=== PATIENT | male | born 1975 | race African-American/Black ===

== ENCOUNTER → 2018-06-23 | Outpatient (CLI) | payer MEDICARE ==
--- NOTE | 2018-06-23 10:26 | Diagnostic Imaging Report ---
TECHNIQUE: Ultrasound evaluation of the abdomen. Color doppler was utilized to supplement the evaluation. HISTORY: Gastroparesis, nausea COMPARISON: None available. DISCUSSION: LIVER: No focal lesion is identified. The liver measures 17 cm in the right midclavicular line. BILIARY: Normal appearance, without evidence for gallstones, gallbladder wall thickening or pericholecystic fluid. The sonographic Champagne's sign is reported as negative. The common bile duct measures 0.3 cm. PANCREAS: Incompletely visualized due to overlying bowel gas, especially the tail, but no abnormality identified involving the visualized portions of the pancreas. SPLEEN: No splenomegaly. PERITONEUM: No free fluid. KIDNEYS: Right: Measures 12 cm in length. No hydronephrosis or solid mass lesion identified. Left: Measures 11 cm in length. No hydronephrosis or solid mass lesion identified. VASCULATURE: Aorta: Visualized portions appear unremarkable. Interior vena cava: Visualized portions appear unremarkable. Portal Vein: Nondilated with hepatopedal flow. IMPRESSION: 1. Hepatomegaly. 2. Otherwise, unremarkable. Signed by: Dr. Tariq Solis D.O., M.M.M. on 06/23/2018 10:23 AM
== END ==
LOC: US 07:38 → EDSEX 08:00
PROVIDERS: ATTEND Internal Medicine Gastroenterology
DX: K31.84 Gastroparesis (principal); R11.0 Nausea
CPT/HCPCS: 76700

== ENCOUNTER 2018-07-02 00:42 | Inpatient (IN) | payer MEDICARE ==
[~2018-07-02] VITALS: Ht 185.4 cm; Wt 90.7 kg
--- OUTSIDE RECORDS SUMMARY | 2018-07-02 00:46 | XMS REPORT ---
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 Allergies, Adverse Reactions, Alerts Allergy Name Allergy Type Status Severity Reaction(s) Onset Date Inactive Date Treating Clinician Comments No Known Allergies DA Active U 2018-05-11 00:00:00 No Known Allergies DA Active U 2018-02-26 00:00:00 No Known Allergies DA Active U 2018-01-14 00:00:00 No Known Allergies DA Active U 2017-12-15 00:00:00 No Known Allergies DA Active U 2017-10-09 00:00:00 Medications This patient has no known medications. Results Test Description Test Time Test Comments Text Results Atomic Results Result Comments US ABDOMEN COMPLETE 2018-06-23 10:20:00 [facility] [address] [place] [address] Patient Name: BREE ASHTON MR #: [id number] : 1975 Age/Sex: 42/M Req #: [id number] Adm Physician: Ordered by: TAVIA GARCIA MD Report #: [id number] Location: Room/Bed: Procedure: [id number] US/US ABDOMEN COMPLETE Exam Date: Exam Time: REPORT STATUS: Signed TECHNIQUE: Ultrasound evaluation of the abdomen. Color doppler was utilized to supplement the evaluation. HISTORY: Gastroparesis, nausea COMPARISON: None available. DISCUSSION: LIVER: No focal lesion is identified. The liver measures 17 cm in the right midclavicular line. BILIARY: Normal appearance, without evidence for gallstones, gallbladder wall thickening or pericholecystic fluid. The sonographic Champagne's sign is reported as negative. The common bile duct measures 0.3 cm. PANCREAS: Incompletely visualized due to overlying bowel gas, especially the tail, but no abnormality identified involving the visualized portions of the pancreas. SPLEEN: No splenomegaly. PERITONEUM: No free fluid. KIDNEYS: Right: Measures 12 cm in length. No hydronephrosis or solid mass lesion identified. Left: Measures 11 cm in length. No hydronephrosis or solid mass lesion identified. VASCULATURE: Aorta: Visualized portions appear unremarkable. Interior vena cava: Visualized portions appear unremarkable. Portal Vein: Nondilated with hepatopedal flow. IMPRESSION: 1. Hepatomegaly. 2. Otherwise, unremarkable. Signed by: Dr. Tariq Solis D.O., M.M.M. on 06/23/2018 10:23 AM Dictated By: TARIQ SOLIS DO 1023 Transcribed By: PAULA on 06/23/18 1023 COPY TO: TAVIA GARCIA MD GLUBED 2018-06-05 05:55:00 GLUBED (test code=GLUBED) 195 mg/dL 74-106 Performed by certified cryolite recovery operator at [facility] ([facility]3] [id number] 17:33:00* Test Item Value Reference Range Comments GLUBED (test code=GLUBED) 151 mg/dL 74-106 Performed by certified cryolite recovery operator at [facility] ([facility])[3] BASIC METABOLIC [id number] 15:46:00* Test Item Value Reference Range Comments SODIUM (test code=NA) 136 mmol/L 136-145 POTASSIUM (test code=K) 3.0 mmol/L 3.5-5.1 CHLORIDE (test code=CL) 98.0 mmol/L 98-107 CARBON DIOXIDE (test code=CO2) 30.0 mmol/L 21-32 ANION GAP (test code=GAP) 11.0 10-20 GLUCOSE (test code=GLU) 179 mg/dL 74-106 BLOOD UREA NITROGEN (test code=BUN) 10 mg/dL 7-18 GLOMERULAR FILTRATION RATE (test code=GFR) > 60 mL/min >=60 Estimated GFR by using Modified MDRD formula.Chronic kidney disease is defined as either kidney damageor GFR <60 mL/min/1.73 m2 for >3 months. CREATININE (test code=CREAT) 0.80 mg/dL 0.7-1.3 BUN/CREATININE RATIO (test code=BUN/CREA) 13.2 10-20 CALCIUM (test code=CA) 7.7 mg/dL 8.5-10.1 [id number] 12:16:00* Test Item Value Reference Range Comments GLUBED (test code=GLUBED) 136 mg/dL 74-106 Performed by certified cryolite recovery operator at [facility] ([facility])[3] [id number] 07:53:00* Test Item Value Reference Range Comments GLUBED (test code=GLUBED) 129 mg/dL 74-106 Performed by certified cryolite recovery operator at [facility] ([facility])[3] COMPREHENSIVE METABOLIC [id number] 06:41:00* Test Item Value Reference Range Comments SODIUM (test code=NA) 139 mmol/L 136-145 POTASSIUM (test code=K) 2.7 mmol/L 3.5-5.1 Results called to [id number] by [email or web address] 05/16/18 0636Critical results verified and read back by Nurse? Y CHLORIDE (test code=CL) 100.0 mmol/L 98-107 CARBON DIOXIDE (test code=CO2) 28.0 mmol/L 21-32 ANION GAP (test code=GAP) 13.7 10-20 GLUCOSE (test code=GLU) 120 mg/dL 74-106 BLOOD UREA NITROGEN (test code=BUN) 9 mg/dL 7-18 GLOMERULAR FILTRATION RATE (test code=GFR) > 60 mL/min >=60 Estimated GFR by using Modified MDRD formula.Chronic kidney disease is defined as either kidney damageor GFR <60 mL/min/1.73 m2 for >3 months. CREATININE (test code=CREAT) 0.70 mg/dL 0.7-1.3 BUN/CREATININE RATIO (test code=BUN/CREA) 12.5 10-20 TOTAL PROTEIN (test code=PROT) 6.1 gram/dL 6.4-8.2 ALBUMIN (test code=ALB) 2.9 g/dL 3.4-5.0 GLOBULIN (test code=GLOB) 3.2 gram/dL 2.7-4.2 ALBUMIN/GLOBULIN RATIO (test code=A/G) 0.9 0.75-1.50 CALCIUM (test code=CA) 8.0 mg/dL 8.5-10.1 BILIRUBIN TOTAL (test code=BILT) 0.80 mg/dL 0.0-1.0 SGOT/AST (test code=AST) 10 IUnit/L 15-37 SGPT/ALT (test code=ALT) 11 IUnit/L 12-78 ALKALINE PHOSPHATASE TOTAL (test code=ALKP) 68 IUnit/L 45-117 Note change in reference range due to change in reagent. CBC W/AUTO [id number] 05:31:00* Test Item Value Reference Range Comments WHITE BLOOD CELL (test code=WBC) 7.7 K/mm3 4.5-12.5 RED BLOOD CELL (test code=RBC) 4.04 mill/mm3 4.0-5.8 HEMOGLOBIN (test code=HGB) 11.4 gram/dL 13.0-17.5 HEMATOCRIT (test code=HCT) 36.2 % 42.0-52.0 MEAN CELL VOLUME (test code=MCV) 89.6 fL 80-98 MEAN CELL HGB (test code=MCH) 28.2 picogram 27.0-33.0 MEAN CELL HGB CONCETRATION (test code=MCHC) 31.5 gram/dL 33.0-36.0 RED CELL DISTRIBUTION WIDTH (test code=RDW) 12.8 % 11.6-16.2 RED CELL DISTRIBUTION WIDTH SD (test code=RDW-SD) 42.1 fL 37.0-51.0 PLATELET COUNT (test code=PLT) 187 K/mm3 150-450 MEAN PLATELET VOLUME (test code=MPV) 10.7 fL 6.7-11.0 NEUTROPHIL % (test code=NT%) 64.1 % 39.0-69.0 IMMATURE GRANULOCYTE % (test code=IG%) 0.3 % 0.0-5.0 LYMPHOCYTE % (test code=LY%) 16.8 % 25.0-55.0 MONOCYTE % (test code=MO%) 17.2 % 0.0-10.0 EOSINOPHIL % (test code=EO%) 1.2 % 0.0-5.0 BASOPHIL % (test code=BA%) 0.4 % 0.0-1.0 NUCLEATED RBC % (test code=NRBC%) 0.0 % 0-0 NEUTROPHIL # (test code=NT#) 4.95 K/mm3 1.8-7.7 IMMATURE GRANULOCYTE # (test code=IG#) 0.02 x10 3/uL 0-0.03 LYMPHOCYTE # (test code=LY#) 1.30 K/mm3 1.0-5.0 MONOCYTE # (test code=MO#) 1.33 K/mm3 0-0.8 EOSINOPHIL # (test code=EO#) 0.09 K/mm3 0.0-0.5 BASOPHIL # (test code=BA#) 0.03 K/mm3 0.0-0.2 NUCLEATED RBC # (test code=NRBC#) 0.00 K/mm3 0.0-0.1 [id number] 20:43:00* Test Item Value Reference Range Comments GLUBED (test code=GLUBED) 122 mg/dL 74-106 Performed by certified cryolite recovery operator at [facility]3] [id number] 17:15:00* Test Item Value Reference Range Comments GLUBED (test code=GLUBED) 145 mg/dL 74-106 Performed by certified cryolite recovery operator at [facility]3] [id number] 11:46:00* Test Item Value Reference Range Comments GLUBED (test code=GLUBED) 228 mg/dL 74-106 Performed by certified cryolite recovery operator at [facility]3] [id number] 07:49:00* Test Item Value Reference Range Comments GLUBED (test code=GLUBED) 123 mg/dL 74-106 Performed by certified cryolite recovery operator at [facility])[3] COMPREHENSIVE METABOLIC [id number] 07:19:00* Test Item Value Reference Range Comments SODIUM (test code=NA) 140 mmol/L 136-145 POTASSIUM (test code=K) 2.9 mmol/L 3.5-5.1 Results called to [id number] by [email or web address] 05/15/18 0716Critical results verified and read back by Nurse? Y CHLORIDE (test code=CL) 102.0 mmol/L 98-107 CARBON DIOXIDE (test code=CO2) 28.0 mmol/L 21-32 ANION GAP (test code=GAP) 12.9 10-20 GLUCOSE (test code=GLU) 109 mg/dL 74-106 BLOOD UREA NITROGEN (test code=BUN) 11 mg/dL 7-18 GLOMERULAR FILTRATION RATE (test code=GFR) > 60 mL/min >=60 Estimated GFR by using Modified MDRD formula.Chronic kidney disease is defined as either kidney damageor GFR <60 mL/min/1.73 m2 for >3 months. CREATININE (test code=CREAT) 0.70 mg/dL 0.7-1.3 BUN/CREATININE RATIO (test code=BUN/CREA) 15.5 10-20 TOTAL PROTEIN (test code=PROT) 6.3 gram/dL 6.4-8.2 ALBUMIN (test code=ALB) 3.1 g/dL 3.4-5.0 GLOBULIN (test code=GLOB) 3.2 gram/dL 2.7-4.2 ALBUMIN/GLOBULIN RATIO (test code=A/G) 1.0 0.75-1.50 CALCIUM (test code=CA) 7.9 mg/dL 8.5-10.1 BILIRUBIN TOTAL (test code=BILT) 0.60 mg/dL 0.0-1.0 SGOT/AST (test code=AST) 12 IUnit/L 15-37 SGPT/ALT (test code=ALT) 12 IUnit/L 12-78 ALKALINE PHOSPHATASE TOTAL (test code=ALKP) 74 IUnit/L 45-117 Note change in reference range due to change in reagent. CBC W/AUTO [id number] 06:20:00* Test Item Value Reference Range Comments WHITE BLOOD CELL (test code=WBC) 10.1 K/mm3 4.5-12.5 RED BLOOD CELL (test code=RBC) 4.18 mill/mm3 4.0-5.8 HEMOGLOBIN (test code=HGB) 11.7 gram/dL 13.0-17.5 HEMATOCRIT (test code=HCT) 37.5 % 42.0-52.0 MEAN CELL VOLUME (test code=MCV) 89.7 fL 80-98 MEAN CELL HGB (test code=MCH) 28.0 picogram 27.0-33.0 MEAN CELL HGB CONCETRATION (test code=MCHC) 31.2 gram/dL 33.0-36.0 RED CELL DISTRIBUTION WIDTH (test code=RDW) 13.1 % 11.6-16.2 RED CELL DISTRIBUTION WIDTH SD (test code=RDW-SD) 43.0 fL 37.0-51.0 PLATELET COUNT (test code=PLT) 192 K/mm3 150-450 MEAN PLATELET VOLUME (test code=MPV) 11.0 fL 6.7-11.0 NEUTROPHIL % (test code=NT%) 69.3 % 39.0-69.0 IMMATURE GRANULOCYTE % (test code=IG%) 0.4 % 0.0-5.0 LYMPHOCYTE % (test code=LY%) 14.4 % 25.0-55.0 MONOCYTE % (test code=MO%) 15.4 % 0.0-10.0 EOSINOPHIL % (test code=EO%) 0.1 % 0.0-5.0 BASOPHIL % (test code=BA%) 0.4 % 0.0-1.0 NUCLEATED RBC % (test code=NRBC%) 0.0 % 0-0 NEUTROPHIL # (test code=NT#) 6.99 K/mm3 1.8-7.7 IMMATURE GRANULOCYTE # (test code=IG#) 0.04 x10 3/uL 0-0.03 LYMPHOCYTE # (test code=LY#) 1.45 K/mm3 1.0-5.0 MONOCYTE # (test code=MO#) 1.55 K/mm3 0-0.8 EOSINOPHIL # (test code=EO#) 0.01 K/mm3 0.0-0.5 BASOPHIL # (test code=BA#) 0.04 K/mm3 0.0-0.2 NUCLEATED RBC # (test code=NRBC#) 0.00 K/mm3 0.0-0.1 [id number] 21:14:00* Test Item Value Reference Range Comments GLUBED (test code=GLUBED) 152 mg/dL 74-106 Performed by certified cryolite recovery operator at [facility])[3] [id number] 17:16:00* Test Item Value Reference Range Comments GLUBED (test code=GLUBED) 140 mg/dL 74-106 Performed by certified cryolite recovery operator at [facility]3] [id number] 11:55:00* Test Item Value Reference Range Comments GLUBED (test code=GLUBED) 236 mg/dL 74-106 Performed by certified cryolite recovery operator at [facility]3] COMPREHENSIVE METABOLIC [id number] 08:50:00* Test Item Value Reference Range Comments SODIUM (test code=NA) 142 mmol/L 136-145 POTASSIUM (test code=K) 3.4 mmol/L 3.5-5.1 CHLORIDE (test code=CL) 107.0 mmol/L 98-107 CARBON DIOXIDE (test code=CO2) 25.0 mmol/L 21-32 ANION GAP (test code=GAP) 13.4 10-20 GLUCOSE (test code=GLU) 195 mg/dL 74-106 BLOOD UREA NITROGEN (test code=BUN) 16 mg/dL 7-18 GLOMERULAR FILTRATION RATE (test code=GFR) > 60 mL/min >=60 Estimated GFR by using Modified MDRD formula.Chronic kidney disease is defined as either kidney damageor GFR <60 mL/min/1.73 m2 for >3 months. CREATININE (test code=CREAT) 0.80 mg/dL 0.7-1.3 BUN/CREATININE RATIO (test code=BUN/CREA) 18.9 10-20 TOTAL PROTEIN (test code=PROT) 6.5 gram/dL 6.4-8.2 ALBUMIN (test code=ALB) 3.2 g/dL 3.4-5.0 GLOBULIN (test code=GLOB) 3.3 gram/dL 2.7-4.2 ALBUMIN/GLOBULIN RATIO (test code=A/G) 1.0 0.75-1.50 CALCIUM (test code=CA) 8.2 mg/dL 8.5-10.1 BILIRUBIN TOTAL (test code=BILT) 0.60 mg/dL 0.0-1.0 SGOT/AST (test code=AST) 10 IUnit/L 15-37 SGPT/ALT (test code=ALT) 14 IUnit/L 12-78 ALKALINE PHOSPHATASE TOTAL (test code=ALKP) 80 IUnit/L 45-117 Note change in reference range due to change in reagent. COMPREHENSIVE METABOLIC [id number] 08:38:00* Test Item Value Reference Range Comments SODIUM (test code=NA) 142 mmol/L 136-145 POTASSIUM (test code=K) 3.4 mmol/L 3.5-5.1 CHLORIDE (test code=CL) 107.0 mmol/L 98-107 CARBON DIOXIDE (test code=CO2) mmol/L 21-32 ANION GAP (test code=GAP) 10-20 GLUCOSE (test code=GLU) mg/dL 74-106 BLOOD UREA NITROGEN (test code=BUN) mg/dL 7-18 GLOMERULAR FILTRATION RATE (test code=GFR) mL/min >=60 CREATININE (test code=CREAT) mg/dL 0.7-1.3 BUN/CREATININE RATIO (test code=BUN/CREA) 10-20 TOTAL PROTEIN (test code=PROT) gram/dL 6.4-8.2 ALBUMIN (test code=ALB) g/dL 3.4-5.0 GLOBULIN (test code=GLOB) gram/dL 2.7-4.2 ALBUMIN/GLOBULIN RATIO (test code=A/G) 0.75-1.50 CALCIUM (test code=CA) mg/dL 8.5-10.1 BILIRUBIN TOTAL (test code=BILT) mg/dL 0.0-1.0 SGOT/AST (test code=AST) IUnit/L 15-37 SGPT/ALT (test code=ALT) IUnit/L 12-78 ALKALINE PHOSPHATASE TOTAL (test code=ALKP) IUnit/L 45-117 CBC W/AUTO [id number] 08:00:00* Test Item Value Reference Range Comments WHITE BLOOD CELL (test code=WBC) 13.1 K/mm3 4.5-12.5 RED BLOOD CELL (test code=RBC) 4.03 mill/mm3 4.0-5.8 HEMOGLOBIN (test code=HGB) 11.4 gram/dL 13.0-17.5 HEMATOCRIT (test code=HCT) 36.0 % 42.0-52.0 MEAN CELL VOLUME (test code=MCV) 89.3 fL 80-98 MEAN CELL HGB (test code=MCH) 28.3 picogram 27.0-33.0 MEAN CELL HGB CONCETRATION (test code=MCHC) 31.7 gram/dL 33.0-36.0 RED CELL DISTRIBUTION WIDTH (test code=RDW) 13.6 % 11.6-16.2 RED CELL DISTRIBUTION WIDTH SD (test code=RDW-SD) 44.4 fL 37.0-51.0 PLATELET COUNT (test code=PLT) 181 K/mm3 150-450 MEAN PLATELET VOLUME (test code=MPV) 10.9 fL 6.7-11.0 NEUTROPHIL % (test code=NT%) 79.9 % 39.0-69.0 IMMATURE GRANULOCYTE % (test code=IG%) 0.5 % 0.0-5.0 LYMPHOCYTE % (test code=LY%) 9.0 % 25.0-55.0 MONOCYTE % (test code=MO%) 10.3 % 0.0-10.0 EOSINOPHIL % (test code=EO%) 0.0 % 0.0-5.0 BASOPHIL % (test code=BA%) 0.3 % 0.0-1.0 NUCLEATED RBC % (test code=NRBC%) 0.0 % 0-0 NEUTROPHIL # (test code=NT#) 10.44 K/mm3 1.8-7.7 IMMATURE GRANULOCYTE # (test code=IG#) 0.07 x10 3/uL 0-0.03 LYMPHOCYTE # (test code=LY#) 1.18 K/mm3 1.0-5.0 MONOCYTE # (test code=MO#) 1.35 K/mm3 0-0.8 EOSINOPHIL # (test code=EO#) 0.00 K/mm3 0.0-0.5 BASOPHIL # (test code=BA#) 0.04 K/mm3 0.0-0.2 NUCLEATED RBC # (test code=NRBC#) 0.00 K/mm3 0.0-0.1 MANUAL DIFF REQUIRED (test code=MDIFF) NO [id number] 07:51:00* Test Item Value Reference Range Comments GLUBED (test code=GLUBED) 210 mg/dL 74-106 Performed by certified cryolite recovery operator at [facility]3] [id number] 20:06:00* Test Item Value Reference Range Comments GLUBED (test code=GLUBED) 278 mg/dL 74-106 Performed by certified cryolite recovery operator at [facility]3] [id number] 16:53:00* Test Item Value Reference Range Comments GLUBED (test code=GLUBED) 236 mg/dL 74-106 Performed by certified cryolite recovery operator at [facility]3] [id number] 11:31:00* Test Item Value Reference Range Comments GLUBED (test code=GLUBED) 269 mg/dL 74-106 Performed by certified cryolite recovery operator at [facility]3] [id number] 10:39:00* Test Item Value Reference Range Comments GLUBED (test code=GLUBED) 298 mg/dL 74-106 Performed by certified cryolite recovery operator at [facility]3] COMPREHENSIVE METABOLIC [id number] 06:29:00* Test Item Value Reference Range Comments SODIUM (test code=NA) 141 mmol/L 136-145 POTASSIUM (test code=K) 3.4 mmol/L 3.5-5.1 CHLORIDE (test code=CL) 105.0 mmol/L 98-107 CARBON DIOXIDE (test code=CO2) 22.0 mmol/L 21-32 ANION GAP (test code=GAP) 17.4 10-20 GLUCOSE (test code=GLU) 285 mg/dL 74-106 BLOOD UREA NITROGEN (test code=BUN) 15 mg/dL 7-18 GLOMERULAR FILTRATION RATE (test code=GFR) > 60 mL/min >=60 Estimated GFR by using Modified MDRD formula.Chronic kidney disease is defined as either kidney damageor GFR <60 mL/min/1.73 m2 for >3 months. CREATININE (test code=CREAT) 0.90 mg/dL 0.7-1.3 BUN/CREATININE RATIO (test code=BUN/CREA) 16.1 10-20 TOTAL PROTEIN (test code=PROT) 7.1 gram/dL 6.4-8.2 ALBUMIN (test code=ALB) 3.7 g/dL 3.4-5.0 GLOBULIN (test code=GLOB) 3.4 gram/dL 2.7-4.2 ALBUMIN/GLOBULIN RATIO (test code=A/G) 1.1 0.75-1.50 CALCIUM (test code=CA) 8.4 mg/dL 8.5-10.1 BILIRUBIN TOTAL (test code=BILT) 0.60 mg/dL 0.0-1.0 SGOT/AST (test code=AST) 16 IUnit/L 15-37 SGPT/ALT (test code=ALT) 16 IUnit/L 12-78 ALKALINE PHOSPHATASE TOTAL (test code=ALKP) 92 IUnit/L 45-117 Note change in reference range due to change in reagent. COMPREHENSIVE METABOLIC [id number] 06:10:00* Test Item Value Reference Range Comments SODIUM (test code=NA) 141 mmol/L 136-145 POTASSIUM (test code=K) 3.4 mmol/L 3.5-5.1 CHLORIDE (test code=CL) 105.0 mmol/L 98-107 CARBON DIOXIDE (test code=CO2) mmol/L 21-32 ANION GAP (test code=GAP) 10-20 GLUCOSE (test code=GLU) mg/dL 74-106 BLOOD UREA NITROGEN (test code=BUN) mg/dL 7-18 GLOMERULAR FILTRATION RATE (test code=GFR) mL/min >=60 CREATININE (test code=CREAT) mg/dL 0.7-1.3 BUN/CREATININE RATIO (test code=BUN/CREA) 10-20 TOTAL PROTEIN (test code=PROT) gram/dL 6.4-8.2 ALBUMIN (test code=ALB) g/dL 3.4-5.0 GLOBULIN (test code=GLOB) gram/dL 2.7-4.2 ALBUMIN/GLOBULIN RATIO (test code=A/G) 0.75-1.50 CALCIUM (test code=CA) mg/dL 8.5-10.1 BILIRUBIN TOTAL (test code=BILT) mg/dL 0.0-1.0 SGOT/AST (test code=AST) IUnit/L 15-37 SGPT/ALT (test code=ALT) IUnit/L 12-78 ALKALINE PHOSPHATASE TOTAL (test code=ALKP) IUnit/L 45-117 CBC W/AUTO [id number] 05:48:00* Test Item Value Reference Range Comments WHITE BLOOD CELL (test code=WBC) 14.8 K/mm3 4.5-12.5 RED BLOOD CELL (test code=RBC) 4.04 mill/mm3 4.0-5.8 HEMOGLOBIN (test code=HGB) 11.4 gram/dL 13.0-17.5 HEMATOCRIT (test code=HCT) 36.5 % 42.0-52.0 MEAN CELL VOLUME (test code=MCV) 90.3 fL 80-98 MEAN CELL HGB (test code=MCH) 28.2 picogram 27.0-33.0 MEAN CELL HGB CONCETRATION (test code=MCHC) 31.2 gram/dL 33.0-36.0 RED CELL DISTRIBUTION WIDTH (test code=RDW) 13.6 % 11.6-16.2 RED CELL DISTRIBUTION WIDTH SD (test code=RDW-SD) 45.2 fL 37.0-51.0 PLATELET COUNT (test code=PLT) 181 K/mm3 150-450 MEAN PLATELET VOLUME (test code=MPV) 11.2 fL 6.7-11.0 NEUTROPHIL % (test code=NT%) 87.1 % 39.0-69.0 IMMATURE GRANULOCYTE % (test code=IG%) 0.6 % 0.0-5.0 LYMPHOCYTE % (test code=LY%) 5.3 % 25.0-55.0 MONOCYTE % (test code=MO%) 6.7 % 0.0-10.0 EOSINOPHIL % (test code=EO%) 0.0 % 0.0-5.0 BASOPHIL % (test code=BA%) 0.3 % 0.0-1.0 NUCLEATED RBC % (test code=NRBC%) 0.0 % 0-0 NEUTROPHIL # (test code=NT#) 12.89 K/mm3 1.8-7.7 IMMATURE GRANULOCYTE # (test code=IG#) 0.09 x10 3/uL 0-0.03 LYMPHOCYTE # (test code=LY#) 0.79 K/mm3 1.0-5.0 MONOCYTE # (test code=MO#) 1.00 K/mm3 0-0.8 EOSINOPHIL # (test code=EO#) 0.00 K/mm3 0.0-0.5 BASOPHIL # (test code=BA#) 0.05 K/mm3 0.0-0.2 NUCLEATED RBC # (test code=NRBC#) 0.00 K/mm3 0.0-0.1 MANUAL DIFF REQUIRED (test code=MDIFF) NO [id number] 20:52:00* Test Item Value Reference Range Comments GLUBED (test code=GLUBED) 238 mg/dL 74-106 Performed by certified cryolite recovery operator at [facility]3] [id number] 15:54:00* Test Item Value Reference Range Comments GLUBED (test code=GLUBED) 199 mg/dL 74-106 Performed by certified cryolite recovery operator at [facility]3] [id number] 11:51:00* Test Item Value Reference Range Comments GLUBED (test code=GLUBED) 265 mg/dL 74-106 Performed by certified cryolite recovery operator at [facility]3] [id number] 08:20:00* Test Item Value Reference Range Comments GLYCOSYLATED HEMOGLOBIN (HA1C) (test code=GLYHGB) 10.6 % HbA1 4.8-6.0 ESTIMATED AVERAGE GLUCOSE (test code=EAG) 258 MG/DL COMPREHENSIVE METABOLIC [id number] 08:11:00* Test Item Value Reference Range Comments SODIUM (test code=NA) 139 mmol/L 136-145 POTASSIUM (test code=K) 4.0 mmol/L 3.5-5.1 CHLORIDE (test code=CL) 102.0 mmol/L 98-107 CARBON DIOXIDE (test code=CO2) 24.0 mmol/L 21-32 ANION GAP (test code=GAP) 17.0 10-20 GLUCOSE (test code=GLU) 354 mg/dL 74-106 BLOOD UREA NITROGEN (test code=BUN) 14 mg/dL 7-18 GLOMERULAR FILTRATION RATE (test code=GFR) > 60 mL/min >=60 Estimated GFR by using Modified MDRD formula.Chronic kidney disease is defined as either kidney damageor GFR <60 mL/min/1.73 m2 for >3 months. CREATININE (test code=CREAT) 1.10 mg/dL 0.7-1.3 BUN/CREATININE RATIO (test code=BUN/CREA) 12.6 10-20 TOTAL PROTEIN (test code=PROT) 7.4 gram/dL 6.4-8.2 ALBUMIN (test code=ALB) 3.8 g/dL 3.4-5.0 GLOBULIN (test code=GLOB) 3.6 gram/dL 2.7-4.2 ALBUMIN/GLOBULIN RATIO (test code=A/G) 1.1 0.75-1.50 CALCIUM (test code=CA) 8.4 mg/dL 8.5-10.1 BILIRUBIN TOTAL (test code=BILT) 0.70 mg/dL 0.0-1.0 SGOT/AST (test code=AST) 20 IUnit/L 15-37 SGPT/ALT (test code=ALT) 18 IUnit/L 12-78 ALKALINE PHOSPHATASE TOTAL (test code=ALKP) 96 IUnit/L 45-117 Note change in reference range due to change in reagent. LIPID PROFILE (CORONARY RISK)2018-05-12 08:11:00* Test Item Value Reference Range Comments TRIGLYCERIDES (test code=TRIG) 73 mg/dL 20-150 CHOLESTEROL (test code=CHOL) 134 mg/dL 0-200 CHOLESTEROL/HDL RATIO (test code=CHOLHDL) 3.0 RATIO 0-4.9 RISK ASSOCIATED WITH CHOL/HDL RATIOS: Risk Male Female1/2 AVERAGE 3.43 3.27AVERAGE 4.97 4.442X AVERAGE 9.55 7.053X AVERAGE 23.39 11.04 REFERENCE VALUE IS RELATED TO RISK LEVELS ASRECOMMENDED BY THE [facility]. HEART, LUNG, AND BLOOD INST. HDL CHOLESTEROL (test code=HDL) 38 mg/dL 40-60 LIPOPROTEIN LDL (test code=LDL) 92 mg/dL 100-129 Reference Interval: mg/dL mmol/L Optimal <100 <2.6Near/above optimal 100-129 2.6- 3.3Borderline High 130-159 3.4-4.1High 160-189 4.1-4.9Very High >=190 >=4.9=========This LDL result is a direct measurement.========= THYROID STIMULATING [id number] 08:11:00* Test Item Value Reference Range Comments THYROID STIMULATING HORMONE (test code=TSH) 1.020 uIU/mL 0.36-3.74 TSH REFERENCE RANGES: EUTHYROID: 0.35 - 4.3 mIU/mL HYPO : > 5.5 mIU/mL HYPER : < 0.35 mIU/mL COMPREHENSIVE METABOLIC [id number] 07:53:00* Test Item Value Reference Range Comments SODIUM (test code=NA) 139 mmol/L 136-145 POTASSIUM (test code=K) 4.0 mmol/L 3.5-5.1 CHLORIDE (test code=CL) 102.0 mmol/L 98-107 CARBON DIOXIDE (test code=CO2) mmol/L 21-32 ANION GAP (test code=GAP) 10-20 GLUCOSE (test code=GLU) mg/dL 74-106 BLOOD UREA NITROGEN (test code=BUN) mg/dL 7-18 GLOMERULAR FILTRATION RATE (test code=GFR) mL/min >=60 CREATININE (test code=CREAT) mg/dL 0.7-1.3 BUN/CREATININE RATIO (test code=BUN/CREA) 10-20 TOTAL PROTEIN (test code=PROT) gram/dL 6.4-8.2 ALBUMIN (test code=ALB) g/dL 3.4-5.0 GLOBULIN (test code=GLOB) gram/dL 2.7-4.2 ALBUMIN/GLOBULIN RATIO (test code=A/G) 0.75-1.50 CALCIUM (test code=CA) mg/dL 8.5-10.1 BILIRUBIN TOTAL (test code=BILT) mg/dL 0.0-1.0 SGOT/AST (test code=AST) IUnit/L 15-37 SGPT/ALT (test code=ALT) IUnit/L 12-78 ALKALINE PHOSPHATASE TOTAL (test code=ALKP) IUnit/L 45-117 LIPID PROFILE (CORONARY RISK)2018-05-12 07:53:00* Test Item Value Reference Range Comments TRIGLYCERIDES (test code=TRIG) mg/dL 20-150 CHOLESTEROL (test code=CHOL) mg/dL 0-200 CHOLESTEROL/HDL RATIO (test code=CHOLHDL) RATIO 0-4.9 HDL CHOLESTEROL (test code=HDL) mg/dL 40-60 LIPOPROTEIN LDL (test code=LDL) mg/dL 100-129 THYROID STIMULATING [id number] 07:53:00* Test Item Value Reference Range Comments THYROID STIMULATING HORMONE (test code=TSH) uIU/mL 0.36-3.74 CBC W/AUTO [id number] 07:51:00* Test Item Value Reference Range Comments WHITE BLOOD CELL (test code=WBC) 12.2 K/mm3 4.5-12.5 RED BLOOD CELL (test code=RBC) 4.13 mill/mm3 4.0-5.8 HEMOGLOBIN (test code=HGB) 11.6 gram/dL 13.0-17.5 HEMATOCRIT (test code=HCT) 38.2 % 42.0-52.0 MEAN CELL VOLUME (test code=MCV) 92.5 fL 80-98 MEAN CELL HGB (test code=MCH) 28.1 picogram 27.0-33.0 MEAN CELL HGB CONCETRATION (test code=MCHC) 30.4 gram/dL 33.0-36.0 RED CELL DISTRIBUTION WIDTH (test code=RDW) 13.4 % 11.6-16.2 RED CELL DISTRIBUTION WIDTH SD (test code=RDW-SD) 45.9 fL 37.0-51.0 PLATELET COUNT (test code=PLT) 201 K/mm3 150-450 MEAN PLATELET VOLUME (test code=MPV) 11.2 fL 6.7-11.0 NEUTROPHIL % (test code=NT%) 88.3 % 39.0-69.0 IMMATURE GRANULOCYTE % (test code=IG%) 0.5 % 0.0-5.0 LYMPHOCYTE % (test code=LY%) 5.7 % 25.0-55.0 MONOCYTE % (test code=MO%) 5.3 % 0.0-10.0 EOSINOPHIL % (test code=EO%) 0.0 % 0.0-5.0 BASOPHIL % (test code=BA%) 0.2 % 0.0-1.0 NUCLEATED RBC % (test code=NRBC%) 0.0 % 0-0 NEUTROPHIL # (test code=NT#) 10.72 K/mm3 1.8-7.7 IMMATURE GRANULOCYTE # (test code=IG#) 0.06 x10 3/uL 0-0.03 LYMPHOCYTE # (test code=LY#) 0.69 K/mm3 1.0-5.0 MONOCYTE # (test code=MO#) 0.65 K/mm3 0-0.8 EOSINOPHIL # (test code=EO#) 0.00 K/mm3 0.0-0.5 BASOPHIL # (test code=BA#) 0.03 K/mm3 0.0-0.2 NUCLEATED RBC # (test code=NRBC#) 0.00 K/mm3 0.0-0.1 MANUAL DIFF REQUIRED (test code=MDIFF) NO [id number] 07:10:00* Test Item Value Reference Range Comments GLUBED (test code=GLUBED) 350 mg/dL 74-106 Performed by certified cryolite recovery operator at [facility] (Formerly [facility])[3] DRUGS OF ABUSE SCREEN [id number] 06:10:00* Test Item Value Reference Range Comments UA PH DIPSTICK (test code=JOHN) 7.0 5.0-8.0 URN COCAINE (test code=COCAURN) NEGATIVE <300 ng/mL URN CANNABINOIDS (test code=CANNABURN) POSITIVE <50 ng/mL This test provides only a preliminary test result. A morespecific alternate chemical method must be used in order toobtain a confirmed analytical result. Gas chromatography/mass spectrometry (GC/MS) is thepreferred confirmatory method. Other chemical confirmationmethods are available. Clinical consideration and professional judgment should be applied to any drug of abusetest result, particularly when preliminary positive resultsare used.Unconfirmed screening results must not be used fornon-medical purposes (e.g., employment testing, legaltesting). URN AMPHETAMINE (test code=AMPHETURN) NEGATIVE <1000 ng/mL URN BARBITURATE (test code=BARBITURN) NEGATIVE <200 ng/mL URN BENZODIAZEPINE (test code=BENZOURN) NEGATIVE <200 ng/mL URN OPIATES (test code=OPIATURN) POSITIVE <300 ng/mL This test provides only a preliminary test result. A morespecific alternate chemical method must be used in order toobtain a confirmed analytical result. Gas chromatography/mass spectrometry (GC/MS) is thepreferred confirmatory method. Other chemical confirmationmethods are available. Clinical consideration and professional judgment should be applied to any drug of abusetest result, particularly when preliminary positive resultsare used.Unconfirmed screening results must not be used fornon-medical purposes (e.g., employment testing, legaltesting). URN PHENCYCLIDINE (PCP) (test code=PHENCURN) NEGATIVE <25 ng/mL URN METHADONE (test code=METHAURN) NEGATIVE <300 ng/mL URINALYSIS [id number] 05:29:00* Test Item Value Reference Range Comments UA COLOR (test code=COLU) YELLOW YELLOW UA APPEARANCE (test code=APPU) CLEAR CLEAR UA GLUCOSE DIPSTICK (test code=DGLUU) >=500 mg/dL NEGATIVE UA BILIRUBIN DIPSTICK (test code=BILU) NEGATIVE mg/dL NEGATIVE UA KETONE DIPSTICK (test code=KETU) 80 mg/dL NEGATIVE UA SPECIFIC GRAVITY (test code=SGU) 1.022 1.001-1.035 UA BLOOD DIPSTICK (test code=JOANNE) Negative NEGATIVE UA PH DIPSTICK (test code=JOHN) 6.0 5.0-8.0 UA PROTEIN DIPSTICK (test code=PROU) Negative mg/dL NEGATIVE UA UROBILINIOGEN DIPSTICK (test code=URO) NEGATIVE mg/dL NEGATIVE UA NITRITE DIPSTICK (test code=JOHNSON) NEGATIVE NEGATIVE UA LEUKOCYTE ESTERASE W REFLEX (test code=LEUUR) TRACE NEGATIVE UA WBC (test code=WBCU) 11-20 #/HPF 0-5 UA RBC (test code=RBCU) 0-2 #/HPF 0-5 UA EPITHELIAL CELLS (test code=EPIU) FEW per HPF FEW UA HYALINE CAST (test code=HYALU) 0-2 #/LPF 0-5 UA MUCUS (test code=MUCU) FEW #/LPF FEW Urine Source? Clean CatchDRUGS OF ABUSE SCREEN [id number] 05:12:00* Test Item Value Reference Range Comments UA PH DIPSTICK (test code=JOHN) 7.0 5.0-8.0 URN COCAINE (test code=COCAURN) <300 ng/mL URN CANNABINOIDS (test code=CANNABURN) <50 ng/mL URN AMPHETAMINE (test code=AMPHETURN) <1000 ng/mL URN BARBITURATE (test code=BARBITURN) <200 ng/mL URN BENZODIAZEPINE (test code=BENZOURN) <200 ng/mL URN OPIATES (test code=OPIATURN) <300 ng/mL URN PHENCYCLIDINE (PCP) (test code=PHENCURN) <25 ng/mL URN METHADONE (test code=METHAURN) <300 ng/mL [id number] 20:26:00* Test Item Value Reference Range Comments GLUBED (test code=GLUBED) 285 mg/dL 74-106 Performed by certified cryolite recovery operator at [facility] ([facility])[3] [id number] 13:32:00* Test Item Value Reference Range Comments GLUBED (test code=GLUBED) 159 mg/dL 74-106 Performed by certified cryolite recovery operator at [facility] ([facility])[3] BASIC METABOLIC [id number] 09:38:00* Test Item Value Reference Range Comments SODIUM (test code=NA) 139 mmol/L 136-145 POTASSIUM (test code=K) 4.2 mmol/L 3.5-5.1 CHLORIDE (test code=CL) 102.0 mmol/L 98-107 CARBON DIOXIDE (test code=CO2) 27.0 mmol/L 21-32 ANION GAP (test code=GAP) 14.2 10-20 GLUCOSE (test code=GLU) 320 mg/dL 74-106 BLOOD UREA NITROGEN (test code=BUN) 14 mg/dL 7-18 GLOMERULAR FILTRATION RATE (test code=GFR) > 60 mL/min >=60 Estimated GFR by using Modified MDRD formula.Chronic kidney disease is defined as either kidney damageor GFR <60 mL/min/1.73 m2 for >3 months. CREATININE (test code=CREAT) 1.20 mg/dL 0.7-1.3 BUN/CREATININE RATIO (test code=BUN/CREA) 12.0 10-20 CALCIUM (test code=CA) 8.9 mg/dL 8.5-10.1 HEPATIC FUNCTION [id number] 09:38:00* Test Item Value Reference Range Comments TOTAL PROTEIN (test code=PROT) 7.8 gram/dL 6.4-8.2 ALBUMIN (test code=ALB) 4.0 g/dL 3.4-5.0 GLOBULIN (test code=GLOB) 3.8 gram/dL 2.7-4.2 ALBUMIN/GLOBULIN RATIO (test code=A/G) 1.1 0.75-1.50 BILIRUBIN TOTAL (test code=BILT) 0.40 mg/dL 0.0-1.0 BILIRUBIN DIRECT (test code=BILD) 0.14 mg/dL 0.0-0.20 SGOT/AST (test code=AST) 14 IUnit/L 15-37 SGPT/ALT (test code=ALT) 19 IUnit/L 12-78 ALKALINE PHOSPHATASE TOTAL (test code=ALKP) 105 IUnit/L 45-117 Note change in reference range due to change in reagent. [id number] 09:38:00* Test Item Value Reference Range Comments LIPASE (test code=LIP) 20 U/L 73.0-393.0 BASIC METABOLIC [id number] 09:30:00* Test Item Value Reference Range Comments SODIUM (test code=NA) 139 mmol/L 136-145 POTASSIUM (test code=K) 4.2 mmol/L 3.5-5.1 CHLORIDE (test code=CL) 102.0 mmol/L 98-107 CARBON DIOXIDE (test code=CO2) mmol/L 21-32 ANION GAP (test code=GAP) 10-20 GLUCOSE (test code=GLU) mg/dL 74-106 BLOOD UREA NITROGEN (test code=BUN) mg/dL 7-18 GLOMERULAR FILTRATION RATE (test code=GFR) mL/min >=60 CREATININE (test code=CREAT) mg/dL 0.7-1.3 BUN/CREATININE RATIO (test code=BUN/CREA) 10-20 CALCIUM (test code=CA) mg/dL 8.5-10.1 HEPATIC FUNCTION [id number] 09:30:00* Test Item Value Reference Range Comments TOTAL PROTEIN (test code=PROT) gram/dL 6.4-8.2 ALBUMIN (test code=ALB) g/dL 3.4-5.0 GLOBULIN (test code=GLOB) gram/dL 2.7-4.2 ALBUMIN/GLOBULIN RATIO (test code=A/G) 0.75-1.50 BILIRUBIN TOTAL (test code=BILT) mg/dL 0.0-1.0 BILIRUBIN DIRECT (test code=BILD) mg/dL 0.0-0.20 SGOT/AST (test code=AST) IUnit/L 15-37 SGPT/ALT (test code=ALT) IUnit/L 12-78 ALKALINE PHOSPHATASE TOTAL (test code=ALKP) IUnit/L 45-117 [id number] 09:30:00* Test Item Value Reference Range Comments LIPASE (test code=LIP) U/L 73.0-393.0 CBC W/O [id number] 09:13:00* Test Item Value Reference Range Comments WHITE BLOOD CELL (test code=WBC) 7.9 K/mm3 4.5-12.5 RED BLOOD CELL (test code=RBC) 4.52 mill/mm3 4.0-5.8 HEMOGLOBIN (test code=HGB) 12.9 gram/dL 13.0-17.5 HEMATOCRIT (test code=HCT) 41.5 % 42.0-52.0 MEAN CELL VOLUME (test code=MCV) 91.8 fL 80-98 MEAN CELL HGB (test code=MCH) 28.5 picogram 27.0-33.0 MEAN CELL HGB CONCETRATION (test code=MCHC) 31.1 gram/dL 33.0-36.0 RED CELL DISTRIBUTION WIDTH (test code=RDW) 13.6 % 11.6-16.2 PLATELET COUNT (test code=PLT) 216 K/mm3 150-450 MEAN PLATELET VOLUME (test code=MPV) 10.6 fL 6.7-11.0 [id number] 07:28:00* Test Item Value Reference Range Comments GLUBED (test code=GLUBED) 173 mg/dL 74-106 Performed by certified cryolite recovery operator at [facility] ([facility])[3] [id number] 20:56:00* Test Item Value Reference Range Comments GLUBED (test code=GLUBED) 181 mg/dL 74-106 Performed by certified cryolite recovery operator at [facility] ([facility])[3] [id number] 16:11:00* Test Item Value Reference Range Comments GLUBED (test code=GLUBED) 245 mg/dL 74-106 Performed by certified cryolite recovery operator at [facility] ([facility])[3] [id number] 11:55:00* Test Item Value Reference Range Comments GLUBED (test code=GLUBED) 309 mg/dL 74-106 Performed by certified cryolite recovery operator at [facility] ([facility])[3] [id number] 08:03:00* Test Item Value Reference Range Comments GLUBED (test code=GLUBED) 241 mg/dL 74-106 Performed by certified cryolite recovery operator at [facility])[3] [id number] 00:08:00* Test Item Value Reference Range Comments GLUBED (test code=GLUBED) 175 mg/dL 74-106 Performed by certified cryolite recovery operator at [facility] ([facility])[3] [id number] 20:00:00* Test Item Value Reference Range Comments GLUBED (test code=GLUBED) 167 mg/dL 74-106 Performed by certified cryolite recovery operator at [facility] ([facility])[3] [id number] 16:45:00* Test Item Value Reference Range Comments GLUBED (test code=GLUBED) 208 mg/dL 74-106 Performed by certified cryolite recovery operator at [facility])[3] [id number] 16:01:00* Test Item Value Reference Range Comments GLUBED (test code=GLUBED) 47 mg/dL 74-106 Performed by certified cryolite recovery operator at [facility] ([facility])[3]Notified Nurse~ [id number] 11:44:00* Test Item Value Reference Range Comments GLUBED (test code=GLUBED) 317 mg/dL 74-106 Performed by certified cryolite recovery operator at [facility])[3] [id number] 08:20:00* Test Item Value Reference Range Comments GLUBED (test code=GLUBED) 271 mg/dL 74-106 Performed by certified cryolite recovery operator at [facility] ([facility])[3] CBC W/AUTO [id number] 05:45:00* Test Item Value Reference Range Comments WHITE BLOOD CELL (test code=WBC) 12.7 K/mm3 4.5-12.5 RED BLOOD CELL (test code=RBC) 4.11 mill/mm3 4.0-5.8 HEMOGLOBIN (test code=HGB) 11.6 gram/dL 13.0-17.5 HEMATOCRIT (test code=HCT) 39.1 % 42.0-52.0 MEAN CELL VOLUME (test code=MCV) 95.1 fL 80-98 MEAN CELL HGB (test code=MCH) 28.2 picogram 27.0-33.0 MEAN CELL HGB CONCETRATION (test code=MCHC) 29.7 gram/dL 33.0-36.0 RED CELL DISTRIBUTION WIDTH (test code=RDW) 13.5 % 11.6-16.2 RED CELL DISTRIBUTION WIDTH SD (test code=RDW-SD) 47.6 fL 37.0-51.0 PLATELET COUNT (test code=PLT) 199 K/mm3 150-450 MEAN PLATELET VOLUME (test code=MPV) 11.2 fL 6.7-11.0 NEUTROPHIL % (test code=NT%) 75.6 % 39.0-69.0 IMMATURE GRANULOCYTE % (test code=IG%) 0.3 % 0.0-5.0 LYMPHOCYTE % (test code=LY%) 11.0 % 25.0-55.0 MONOCYTE % (test code=MO%) 12.4 % 0.0-10.0 EOSINOPHIL % (test code=EO%) 0.3 % 0.0-5.0 BASOPHIL % (test code=BA%) 0.4 % 0.0-1.0 NUCLEATED RBC % (test code=NRBC%) 0.0 % 0-0 NEUTROPHIL # (test code=NT#) 9.57 K/mm3 1.8-7.7 IMMATURE GRANULOCYTE # (test code=IG#) 0.04 x10 3/uL 0-0.03 LYMPHOCYTE # (test code=LY#) 1.40 K/mm3 1.0-5.0 MONOCYTE # (test code=MO#) 1.57 K/mm3 0-0.8 EOSINOPHIL # (test code=EO#) 0.04 K/mm3 0.0-0.5 BASOPHIL # (test code=BA#) 0.05 K/mm3 0.0-0.2 NUCLEATED RBC # (test code=NRBC#) 0.00 K/mm3 0.0-0.1 MANUAL DIFF REQUIRED (test code=MDIFF) NO, ONLY SCAN NEEDED DIFFERENTIAL [id number] 05:45:00* Test Item Value Reference Range Comments STAIN ACCEPTABILITY (test code=STN ACCEPTABLE) STAIN ACCEPTABLE POLYCHROMASIA (test code=POLC) 1+ HYPOCHROMIA (test code=HYPO) 1+ PLATELET ESTIMATE (test code=PLTEST) ADEQUATE PLATELET MORPHOLOGY (test code=PLTMORPH) NORMAL CBC W/AUTO [id number] 05:08:00* Test Item Value Reference Range Comments WHITE BLOOD CELL (test code=WBC) 12.7 K/mm3 4.5-12.5 RED BLOOD CELL (test code=RBC) 4.11 mill/mm3 4.0-5.8 HEMOGLOBIN (test code=HGB) 11.6 gram/dL 13.0-17.5 HEMATOCRIT (test code=HCT) 39.1 % 42.0-52.0 MEAN CELL VOLUME (test code=MCV) 95.1 fL 80-98 MEAN CELL HGB (test code=MCH) 28.2 picogram 27.0-33.0 MEAN CELL HGB CONCETRATION (test code=MCHC) 29.7 gram/dL 33.0-36.0 RED CELL DISTRIBUTION WIDTH (test code=RDW) 13.5 % 11.6-16.2 RED CELL DISTRIBUTION WIDTH SD (test code=RDW-SD) 47.6 fL 37.0-51.0 PLATELET COUNT (test code=PLT) 199 K/mm3 150-450 MEAN PLATELET VOLUME (test code=MPV) 11.2 fL 6.7-11.0 NEUTROPHIL % (test code=NT%) 75.6 % 39.0-69.0 IMMATURE GRANULOCYTE % (test code=IG%) 0.3 % 0.0-5.0 LYMPHOCYTE % (test code=LY%) 11.0 % 25.0-55.0 MONOCYTE % (test code=MO%) 12.4 % 0.0-10.0 EOSINOPHIL % (test code=EO%) 0.3 % 0.0-5.0 BASOPHIL % (test code=BA%) 0.4 % 0.0-1.0 NUCLEATED RBC % (test code=NRBC%) 0.0 % 0-0 NEUTROPHIL # (test code=NT#) 9.57 K/mm3 1.8-7.7 IMMATURE GRANULOCYTE # (test code=IG#) 0.04 x10 3/uL 0-0.03 LYMPHOCYTE # (test code=LY#) 1.40 K/mm3 1.0-5.0 MONOCYTE # (test code=MO#) 1.57 K/mm3 0-0.8 EOSINOPHIL # (test code=EO#) 0.04 K/mm3 0.0-0.5 BASOPHIL # (test code=BA#) 0.05 K/mm3 0.0-0.2 NUCLEATED RBC # (test code=NRBC#) 0.00 K/mm3 0.0-0.1 MANUAL DIFF REQUIRED (test code=MDIFF) NO, ONLY SCAN NEEDED DIFFERENTIAL [id number] 05:08:00* Test Item Value Reference Range Comments STAIN ACCEPTABILITY (test code=STN ACCEPTABLE) CABOT RINGS (test code=CAB) MORPHOLOGY COMMENT (test code=MOC) PLATELET ESTIMATE (test code=PLTEST) PLATELET MORPHOLOGY (test code=PLTMORPH) CBC W/AUTO [id number] 05:08:00* Test Item Value Reference Range Comments WHITE BLOOD CELL (test code=WBC) 12.7 K/mm3 4.5-12.5 RED BLOOD CELL (test code=RBC) 4.11 mill/mm3 4.0-5.8 HEMOGLOBIN (test code=HGB) 11.6 gram/dL 13.0-17.5 HEMATOCRIT (test code=HCT) 39.1 % 42.0-52.0 MEAN CELL VOLUME (test code=MCV) 95.1 fL 80-98 MEAN CELL HGB (test code=MCH) 28.2 picogram 27.0-33.0 MEAN CELL HGB CONCETRATION (test code=MCHC) 29.7 gram/dL 33.0-36.0 RED CELL DISTRIBUTION WIDTH (test code=RDW) 13.5 % 11.6-16.2 RED CELL DISTRIBUTION WIDTH SD (test code=RDW-SD) 47.6 fL 37.0-51.0 PLATELET COUNT (test code=PLT) 199 K/mm3 150-450 MEAN PLATELET VOLUME (test code=MPV) 11.2 fL 6.7-11.0 NEUTROPHIL % (test code=NT%) 75.6 % 39.0-69.0 IMMATURE GRANULOCYTE % (test code=IG%) 0.3 % 0.0-5.0 LYMPHOCYTE % (test code=LY%) 11.0 % 25.0-55.0 MONOCYTE % (test code=MO%) 12.4 % 0.0-10.0 EOSINOPHIL % (test code=EO%) 0.3 % 0.0-5.0 BASOPHIL % (test code=BA%) 0.4 % 0.0-1.0 NUCLEATED RBC % (test code=NRBC%) 0.0 % 0-0 NEUTROPHIL # (test code=NT#) 9.57 K/mm3 1.8-7.7 IMMATURE GRANULOCYTE # (test code=IG#) 0.04 x10 3/uL 0-0.03 LYMPHOCYTE # (test code=LY#) 1.40 K/mm3 1.0-5.0 MONOCYTE # (test code=MO#) 1.57 K/mm3 0-0.8 EOSINOPHIL # (test code=EO#) 0.04 K/mm3 0.0-0.5 BASOPHIL # (test code=BA#) 0.05 K/mm3 0.0-0.2 NUCLEATED RBC # (test code=NRBC#) 0.00 K/mm3 0.0-0.1 MANUAL DIFF REQUIRED (test code=MDIFF) NO, ONLY SCAN NEEDED DIFFERENTIAL [id number] 05:08:00* Test Item Value Reference Range Comments STAIN ACCEPTABILITY (test code=STN ACCEPTABLE) MORPHOLOGY COMMENT (test code=MOC) PLATELET ESTIMATE (test code=PLTEST) PLATELET MORPHOLOGY (test code=PLTMORPH) CBC W/AUTO [id number] 05:08:00* Test Item Value Reference Range Comments WHITE BLOOD CELL (test code=WBC) 12.7 K/mm3 4.5-12.5 RED BLOOD CELL (test code=RBC) 4.11 mill/mm3 4.0-5.8 HEMOGLOBIN (test code=HGB) 11.6 gram/dL 13.0-17.5 HEMATOCRIT (test code=HCT) 39.1 % 42.0-52.0 MEAN CELL VOLUME (test code=MCV) 95.1 fL 80-98 MEAN CELL HGB (test code=MCH) 28.2 picogram 27.0-33.0 MEAN CELL HGB CONCETRATION (test code=MCHC) 29.7 gram/dL 33.0-36.0 RED CELL DISTRIBUTION WIDTH (test code=RDW) 13.5 % 11.6-16.2 RED CELL DISTRIBUTION WIDTH SD (test code=RDW-SD) 47.6 fL 37.0-51.0 PLATELET COUNT (test code=PLT) 199 K/mm3 150-450 MEAN PLATELET VOLUME (test code=MPV) 11.2 fL 6.7-11.0 NEUTROPHIL % (test code=NT%) 75.6 % 39.0-69.0 IMMATURE GRANULOCYTE % (test code=IG%) 0.3 % 0.0-5.0 LYMPHOCYTE % (test code=LY%) 11.0 % 25.0-55.0 MONOCYTE % (test code=MO%) 12.4 % 0.0-10.0 EOSINOPHIL % (test code=EO%) 0.3 % 0.0-5.0 BASOPHIL % (test code=BA%) 0.4 % 0.0-1.0 NUCLEATED RBC % (test code=NRBC%) 0.0 % 0-0 NEUTROPHIL # (test code=NT#) 9.57 K/mm3 1.8-7.7 IMMATURE GRANULOCYTE # (test code=IG#) 0.04 x10 3/uL 0-0.03 LYMPHOCYTE # (test code=LY#) 1.40 K/mm3 1.0-5.0 MONOCYTE # (test code=MO#) 1.57 K/mm3 0-0.8 EOSINOPHIL # (test code=EO#) 0.04 K/mm3 0.0-0.5 BASOPHIL # (test code=BA#) 0.05 K/mm3 0.0-0.2 NUCLEATED RBC # (test code=NRBC#) 0.00 K/mm3 0.0-0.1 MANUAL DIFF REQUIRED (test code=MDIFF) NO, ONLY SCAN NEEDED DIFFERENTIAL [id number] 05:08:00* Test Item Value Reference Range Comments STAIN ACCEPTABILITY (test code=STN ACCEPTABLE) MORPHOLOGY COMMENT (test code=MOC) PLATELET ESTIMATE (test code=PLTEST) PLATELET MORPHOLOGY (test code=PLTMORPH) CBC W/AUTO [id number] 05:08:00* Test Item Value Reference Range Comments WHITE BLOOD CELL (test code=WBC) 12.7 K/mm3 4.5-12.5 RED BLOOD CELL (test code=RBC) 4.11 mill/mm3 4.0-5.8 HEMOGLOBIN (test code=HGB) 11.6 gram/dL 13.0-17.5 HEMATOCRIT (test code=HCT) 39.1 % 42.0-52.0 MEAN CELL VOLUME (test code=MCV) 95.1 fL 80-98 MEAN CELL HGB (test code=MCH) 28.2 picogram 27.0-33.0 MEAN CELL HGB CONCETRATION (test code=MCHC) 29.7 gram/dL 33.0-36.0 RED CELL DISTRIBUTION WIDTH (test code=RDW) 13.5 % 11.6-16.2 RED CELL DISTRIBUTION WIDTH SD (test code=RDW-SD) 47.6 fL 37.0-51.0 PLATELET COUNT (test code=PLT) 199 K/mm3 150-450 MEAN PLATELET VOLUME (test code=MPV) 11.2 fL 6.7-11.0 NEUTROPHIL % (test code=NT%) 75.6 % 39.0-69.0 IMMATURE GRANULOCYTE % (test code=IG%) 0.3 % 0.0-5.0 LYMPHOCYTE % (test code=LY%) 11.0 % 25.0-55.0 MONOCYTE % (test code=MO%) 12.4 % 0.0-10.0 EOSINOPHIL % (test code=EO%) 0.3 % 0.0-5.0 BASOPHIL % (test code=BA%) 0.4 % 0.0-1.0 NUCLEATED RBC % (test code=NRBC%) 0.0 % 0-0 NEUTROPHIL # (test code=NT#) 9.57 K/mm3 1.8-7.7 IMMATURE GRANULOCYTE # (test code=IG#) 0.04 x10 3/uL 0-0.03 LYMPHOCYTE # (test code=LY#) 1.40 K/mm3 1.0-5.0 MONOCYTE # (test code=MO#) 1.57 K/mm3 0-0.8 EOSINOPHIL # (test code=EO#) 0.04 K/mm3 0.0-0.5 BASOPHIL # (test code=BA#) 0.05 K/mm3 0.0-0.2 NUCLEATED RBC # (test code=NRBC#) 0.00 K/mm3 0.0-0.1 MANUAL DIFF REQUIRED (test code=MDIFF) NO, ONLY SCAN NEEDED DIFFERENTIAL [id number] 05:08:00* Test Item Value Reference Range Comments STAIN ACCEPTABILITY (test code=STN ACCEPTABLE) CABOT RINGS (test code=CAB) MORPHOLOGY COMMENT (test code=MOC) PLATELET ESTIMATE (test code=PLTEST) PLATELET MORPHOLOGY (test code=PLTMORPH) COMPREHENSIVE METABOLIC [id number] 05:04:00* Test Item Value Reference Range Comments SODIUM (test code=NA) 141 mmol/L 136-145 POTASSIUM (test code=K) 4.0 mmol/L 3.5-5.1 CHLORIDE (test code=CL) 104.0 mmol/L 98-107 CARBON DIOXIDE (test code=CO2) 26.0 mmol/L 21-32 ANION GAP (test code=GAP) 15.0 10-20 GLUCOSE (test code=GLU) 236 mg/dL 74-106 BLOOD UREA NITROGEN (test code=BUN) 14 mg/dL 7-18 GLOMERULAR FILTRATION RATE (test code=GFR) > 60 mL/min >=60 Estimated GFR by using Modified MDRD formula.Chronic kidney disease is defined as either kidney damageor GFR <60 mL/min/1.73 m2 for >3 months. CREATININE (test code=CREAT) 1.00 mg/dL 0.7-1.3 BUN/CREATININE RATIO (test code=BUN/CREA) 13.6 10-20 TOTAL PROTEIN (test code=PROT) 7.2 gram/dL 6.4-8.2 ALBUMIN (test code=ALB) 3.8 g/dL 3.4-5.0 GLOBULIN (test code=GLOB) 3.4 gram/dL 2.7-4.2 ALBUMIN/GLOBULIN RATIO (test code=A/G) 1.1 0.75-1.50 CALCIUM (test code=CA) 9.0 mg/dL 8.5-10.1 BILIRUBIN TOTAL (test code=BILT) 0.70 mg/dL 0.0-1.0 SGOT/AST (test code=AST) 13 IUnit/L 15-37 SGPT/ALT (test code=ALT) 18 IUnit/L 12-78 ALKALINE PHOSPHATASE TOTAL (test code=ALKP) 92 IUnit/L 45-117 Note change in reference range due to change in reagent. COMPREHENSIVE METABOLIC [id number] 04:54:00* Test Item Value Reference Range Comments SODIUM (test code=NA) 141 mmol/L 136-145 POTASSIUM (test code=K) 4.0 mmol/L 3.5-5.1 CHLORIDE (test code=CL) 104.0 mmol/L 98-107 CARBON DIOXIDE (test code=CO2) mmol/L 21-32 ANION GAP (test code=GAP) 10-20 GLUCOSE (test code=GLU) mg/dL 74-106 BLOOD UREA NITROGEN (test code=BUN) mg/dL 7-18 GLOMERULAR FILTRATION RATE (test code=GFR) mL/min >=60 CREATININE (test code=CREAT) mg/dL 0.7-1.3 BUN/CREATININE RATIO (test code=BUN/CREA) 10-20 TOTAL PROTEIN (test code=PROT) gram/dL 6.4-8.2 ALBUMIN (test code=ALB) g/dL 3.4-5.0 GLOBULIN (test code=GLOB) gram/dL 2.7-4.2 ALBUMIN/GLOBULIN RATIO (test code=A/G) 0.75-1.50 CALCIUM (test code=CA) mg/dL 8.5-10.1 BILIRUBIN TOTAL (test code=BILT) mg/dL 0.0-1.0 SGOT/AST (test code=AST) IUnit/L 15-37 SGPT/ALT (test code=ALT) IUnit/L 12-78 ALKALINE PHOSPHATASE TOTAL (test code=ALKP) IUnit/L 45-117 [id number] 21:00:00* Test Item Value Reference Range Comments GLUBED (test code=GLUBED) 334 mg/dL 74-106 Performed by certified cryolite recovery operator at [facility]3] [id number] 16:10:00* Test Item Value Reference Range Comments GLUBED (test code=GLUBED) 102 mg/dL 74-106 Performed by certified cryolite recovery operator at [facility]3] [id number] 15:59:00* Test Item Value Reference Range Comments GLUBED (test code=GLUBED) 339 mg/dL 74-106 Performed by certified cryolite recovery operator at [facility]3] URINALYSIS [id number] 09:47:00* Test Item Value Reference Range Comments UA COLOR (test code=COLU) LIGHT YELLOW YELLOW UA APPEARANCE (test code=APPU) CLEAR CLEAR UA GLUCOSE DIPSTICK (test code=DGLUU) >=500 mg/dL NEGATIVE UA BILIRUBIN DIPSTICK (test code=BILU) NEGATIVE mg/dL NEGATIVE UA KETONE DIPSTICK (test code=KETU) 80 mg/dL NEGATIVE UA SPECIFIC GRAVITY (test code=SGU) 1.026 1.001-1.035 UA BLOOD DIPSTICK (test code=JOANNE) Negative NEGATIVE UA PH DIPSTICK (test code=JOHN) 5.0 5.0-8.0 UA PROTEIN DIPSTICK (test code=PROU) Negative mg/dL NEGATIVE UA UROBILINIOGEN DIPSTICK (test code=URO) NEGATIVE mg/dL NEGATIVE UA NITRITE DIPSTICK (test code=JOHNSON) NEGATIVE NEGATIVE UA LEUKOCYTE ESTERASE W REFLEX (test code=LEUUR) NEGATIVE NEGATIVE UA WBC (test code=WBCU) 0-5 #/HPF 0-5 UA RBC (test code=RBCU) 0-2 #/HPF 0-5 Urine Source? Clean CatchURINALYSIS [id number] 09:46:00* Test Item Value Reference Range Comments UA COLOR (test code=COLU) LIGHT YELLOW YELLOW UA APPEARANCE (test code=APPU) CLEAR CLEAR UA GLUCOSE DIPSTICK (test code=DGLUU) >=500 mg/dL NEGATIVE UA BILIRUBIN DIPSTICK (test code=BILU) NEGATIVE mg/dL NEGATIVE UA KETONE DIPSTICK (test code=KETU) 80 mg/dL NEGATIVE UA SPECIFIC GRAVITY (test code=SGU) 1.026 1.001-1.035 UA BLOOD DIPSTICK (test code=JOANNE) Negative NEGATIVE UA PH DIPSTICK (test code=JOHN) 5.0 5.0-8.0 UA PROTEIN DIPSTICK (test code=PROU) Negative mg/dL NEGATIVE UA UROBILINIOGEN DIPSTICK (test code=URO) NEGATIVE mg/dL NEGATIVE UA NITRITE DIPSTICK (test code=JOHNSON) NEGATIVE NEGATIVE UA LEUKOCYTE ESTERASE W REFLEX (test code=LEUUR) NEGATIVE NEGATIVE UA WBC (test code=WBCU) per HPF 0-5 Urine Source? Clean CatchBASIC METABOLIC [id number] 04:02:00* Test Item Value Reference Range Comments SODIUM (test code=NA) 139 mmol/L 136-145 POTASSIUM (test code=K) 3.9 mmol/L 3.5-5.1 CHLORIDE (test code=CL) 102.0 mmol/L 98-107 CARBON DIOXIDE (test code=CO2) 26.0 mmol/L 21-32 ANION GAP (test code=GAP) 14.9 10-20 GLUCOSE (test code=GLU) 290 mg/dL 74-106 BLOOD UREA NITROGEN (test code=BUN) 15 mg/dL 7-18 GLOMERULAR FILTRATION RATE (test code=GFR) > 60 mL/min >=60 Estimated GFR by using Modified MDRD formula.Chronic kidney disease is defined as either kidney damageor GFR <60 mL/min/1.73 m2 for >3 months. CREATININE (test code=CREAT) 1.30 mg/dL 0.7-1.3 BUN/CREATININE RATIO (test code=BUN/CREA) 11.6 10-20 CALCIUM (test code=CA) 9.3 mg/dL 8.5-10.1 HEPATIC FUNCTION [id number] 04:02:00* Test Item Value Reference Range Comments TOTAL PROTEIN (test code=PROT) 8.3 gram/dL 6.4-8.2 ALBUMIN (test code=ALB) 4.2 g/dL 3.4-5.0 GLOBULIN (test code=GLOB) 4.1 gram/dL 2.7-4.2 ALBUMIN/GLOBULIN RATIO (test code=A/G) 1.0 0.75-1.50 BILIRUBIN TOTAL (test code=BILT) 0.70 mg/dL 0.0-1.0 BILIRUBIN DIRECT (test code=BILD) 0.17 mg/dL 0.0-0.20 SGOT/AST (test code=AST) 16 IUnit/L 15-37 SGPT/ALT (test code=ALT) 19 IUnit/L 12-78 ALKALINE PHOSPHATASE TOTAL (test code=ALKP) 108 IUnit/L 45-117 Note change in reference range due to change in reagent. [id number] 04:02:00* Test Item Value Reference Range Comments LIPASE (test code=LIP) 22 U/L 73.0-393.0 BASIC METABOLIC [id number] 03:53:00* Test Item Value Reference Range Comments SODIUM (test code=NA) 139 mmol/L 136-145 POTASSIUM (test code=K) 3.9 mmol/L 3.5-5.1 CHLORIDE (test code=CL) 102.0 mmol/L 98-107 CARBON DIOXIDE (test code=CO2) mmol/L 21-32 ANION GAP (test code=GAP) 10-20 GLUCOSE (test code=GLU) mg/dL 74-106 BLOOD UREA NITROGEN (test code=BUN) mg/dL 7-18 GLOMERULAR FILTRATION RATE (test code=GFR) mL/min >=60 CREATININE (test code=CREAT) mg/dL 0.7-1.3 BUN/CREATININE RATIO (test code=BUN/CREA) 10-20 CALCIUM (test code=CA) mg/dL 8.5-10.1 HEPATIC FUNCTION [id number] 03:53:00* Test Item Value Reference Range Comments TOTAL PROTEIN (test code=PROT) gram/dL 6.4-8.2 ALBUMIN (test code=ALB) g/dL 3.4-5.0 GLOBULIN (test code=GLOB) gram/dL 2.7-4.2 ALBUMIN/GLOBULIN RATIO (test code=A/G) 0.75-1.50 BILIRUBIN TOTAL (test code=BILT) mg/dL 0.0-1.0 BILIRUBIN DIRECT (test code=BILD) mg/dL 0.0-0.20 SGOT/AST (test code=AST) IUnit/L 15-37 SGPT/ALT (test code=ALT) IUnit/L 12-78 ALKALINE PHOSPHATASE TOTAL (test code=ALKP) IUnit/L 45-117 [id number] 03:53:00* Test Item Value Reference Range Comments LIPASE (test code=LIP) U/L 73.0-393.0 CBC W/O [id number] 03:46:00* Test Item Value Reference Range Comments WHITE BLOOD CELL (test code=WBC) 9.0 K/mm3 4.5-12.5 RED BLOOD CELL (test code=RBC) 4.59 mill/mm3 4.0-5.8 HEMOGLOBIN (test code=HGB) 13.0 gram/dL 13.0-17.5 HEMATOCRIT (test code=HCT) 42.4 % 42.0-52.0 MEAN CELL VOLUME (test code=MCV) 92.4 fL 80-98 MEAN CELL HGB (test code=MCH) 28.3 picogram 27.0-33.0 MEAN CELL HGB CONCETRATION (test code=MCHC) 30.7 gram/dL 33.0-36.0 RED CELL DISTRIBUTION WIDTH (test code=RDW) 13.5 % 11.6-16.2 PLATELET COUNT (test code=PLT) 245 K/mm3 150-450 MEAN PLATELET VOLUME (test code=MPV) 10.9 fL 6.7-11.0
[2018-07-02 01:31] LABS: BASOPHILS % 0.4 % (0.0-1.0); HEMATOCRIT 39.1 % (38.2-49.6); HEMOGLOBIN 12.4 g/dL (14.0-18.0); LYMPHOCYTES # (AUTO) 0.6 (1.0-3.2); LYMPHOCYTES % 6.7 % (18.0-39.1); MEAN CORPUSCULAR HEMOGLOBIN 28.6 pg (28-32); MEAN CORPUSCULAR HGB CONC 31.7 g/dL (31-35); MEAN CORPUSCULAR VOLUME 90.1 fL (81-99); MONOCYTES # (AUTO) 0.7 (0.2-0.8); MONOCYTES % 7.2 % (4.4-11.3); NEUTROPHILS # (AUTO) 8.2 (2.1-6.9); NEUTROPHILS % 85.4 % (38.7-80.0); PLATELET COUNT 220 x10e3/uL (140-360); RED BLOOD COUNT 4.34 x10e6/uL (4.3-5.7); RED CELL DISTRIBUTION WIDTH 13.9 % (11.7-14.4)
[2018-07-02 01:46] LABS: ALANINE AMINOTRANSFERASE 14 IU/L (0-55); ALBUMIN 4.4 g/dL (3.5-5.0); ALBUMIN/GLOBULIN RATIO 1.3 (0.8-2.0); ALKALINE PHOSPHATASE 107 IU/L (40-150); ANION GAP 20.9 mmol/L (8-16); BILIRUBIN,URINE 1+ (NEGATIVE); BLOOD UREA NITROGEN 16 mg/dL (7-26); BUN/CREATININE RATIO 12 (6-25); CALCIUM 9.9 mg/dL (8.4-10.2); CARBON DIOXIDE 26 mmol/L (22-29); CHLORIDE 101 mmol/L (98-107); CLARITY,URINE CLEAR (CLEAR); COLOR,URINE YELLOW (YELLOW); CREATININE, SERUM 1.34 mg/dL (0.72-1.25); EST GLOMERULAR FILTRATION RATE > 60 ML/MIN (60-); GLUCOSE 239 mg/dL (74-118); KETONES,URINE 2+ (NEGATIVE); LEUKOCYTE ESTERASE ,URINE NEGATIVE (NEGATIVE); NITRITE,URINE NEGATIVE (NEGATIVE); POTASSIUM 3.9 mmol/L (3.5-5.1); PROTEIN,URINE DIPSTICK 1+ (NEGATIVE); SODIUM 144 mmol/L (136-145); URINE UROBILINOGEN 0.2 mg/dL (0.2 - 1)
[2018-07-02 01:56] LABS: BACTERIA,URINE FEW /HPF; EPITHELIAL CELLS,URINE FEW /LPF; MUCUS,URINE FEW (RARE); RBC,URINE 0-5 /HPF (0-5); WBC,URINE (MAN) 0-5 /HPF (0-5)
[2018-07-02] MEDS ORDERED: HYDROMORPHONE 2MG/ML 2 MG/ML ML IV ONE (03:15)
[2018-07-02] MEDS ORDERED: SODIUM CHLORIDE 0.9% 1000ML 1,000 ML IV SCH (03:15)
[2018-07-02] MEDS ORDERED: INSULIN LISPRO 100 UNIT/1 ML 3ML VIAL SQ STA ×2 (03:15→03:42)
[2018-07-02] MEDS ORDERED: HALOPERIDOL LACTATE 5 MG/ML VIAL IV ONE (03:15)
[2018-07-02 03:59] LABS: AMYLASE 48 U/L (25-125)
[2018-07-02 04:08] LABS: LIPASE < 4 U/L (8-78)
--- NOTE | 2018-07-02 07:15 | NUR ---
WALKING ROUNDS WITH HANK GIBSON
--- NOTE | 2018-07-02 07:16 | NUR ---
PT RESTING IN BED ON SIDE WITH EYES CLOSED, BREATHING EVEN/UNLABORED, NAD NOTED, WILL CONTINUE TO MONITOR.
[2018-07-02] MEDS ORDERED: HYDROMORPHONE 2MG/ML 2 MG/ML ML ONE (08:29)
[2018-07-02] MEDS: SODIUM CHLORIDE 0.9% 1000ML 1,000 ML IV SCH ×3 (08:30→20:30)
[2018-07-02] MEDS ORDERED: DEXTROSE 50% SYRINGE 50 ML IV PRN ×2 (08:30)
[2018-07-02] MEDS ORDERED: HYDROMORPHONE 1MG/1ML INJ IV PRN (08:30)
[2018-07-02] MEDS: METOCLOPRAMIDE HCL 10 MG/2ML VIAL IV SCH ×3 (08:36→17:08)
[2018-07-02] MEDS: HYDROMORPHONE 2MG/ML 2 MG/ML ML IV PRN ×4 (08:38→22:49)
[2018-07-02] MEDS ORDERED: PANTOPRAZOLE 40 MG 10ML VIAL IV STA (08:45)
[2018-07-02] MEDS: INSULIN LISPRO 100 UNIT/1 ML 3ML VIAL SQ SCH ×3 (12:00→20:30)
[2018-07-02] MEDS ORDERED: ACETAMINOPHEN 325 MG TAB PO PRN (12:30)
--- NOTE | 2018-07-02 19:00 | NUR ---
REPORT GIVEN TO SEEMA KIDD SCRATCH FINISHER NURSE.
[2018-07-02 20:00] VITALS: BP 155/72
[2018-07-02 20:39] VITALS: BP 141/86
[2018-07-02 20:43] VITALS: BP 141/86
[2018-07-02] MEDS ORDERED: METOCLOPRAMIDE10 MG PO (21:05)
[2018-07-02] MEDS ORDERED: LANTUS 3ML100 UNITS/ SQ (21:05)
[2018-07-02] MEDS ORDERED: PANTOPRAZOLE SO40 MG PO (21:05)
[2018-07-02] MEDS ORDERED: ONDANSETRON HCL4 MG SL (21:05)
[2018-07-02] MEDS ORDERED: LISINOPRIL5 MG PO (21:05)
[2018-07-02] MEDS ORDERED: NOVOLOG100 UNITS1 SQ (21:05)
[2018-07-02] MEDS ORDERED: GLIMEPIRIDE2 MG PO (21:05)
[2018-07-02] MEDS ORDERED: DICYCLOMINE HCL10 MG PO (21:05)
[2018-07-02] MEDS ORDERED: ULTRAM 50MG50 MG PO (21:05)
[2018-07-03] VITALS (7 sets, daily range): BP systolic 155–175; BP diastolic 74–89
[2018-07-03] MEDS ORDERED: PANTOPRAZOL 40MG/SOD CHL 0.9% 250 ML IV SCH
[2018-07-03] MEDS ORDERED: PANTOPRAZOLE 40 MG 10ML VIAL IV STA
[2018-07-03] MEDS: HYDROMORPHONE 2MG/ML 2 MG/ML ML IV PRN ×5 (02:49→21:05)
[2018-07-03 05:40] LABS: BASOPHILS % 0.3 % (0.0-1.0); EOSINOPHILS % 0.1 % (0.0-6.0); HEMATOCRIT 35.2 % (38.2-49.6); HEMOGLOBIN 11.1 g/dL (14.0-18.0); LYMPHOCYTES # (AUTO) 0.8 (1.0-3.2); MEAN CORPUSCULAR HEMOGLOBIN 28.9 pg (28-32); MEAN CORPUSCULAR HGB CONC 31.5 g/dL (31-35); MEAN CORPUSCULAR VOLUME 91.7 fL (81-99); MONOCYTES % 6.3 % (4.4-11.3); NEUTROPHILS # (AUTO) 13.8 (2.1-6.9); NEUTROPHILS % 87.7 % (38.7-80.0); PLATELET COUNT 157 x10e3/uL (140-360); RED BLOOD COUNT 3.84 x10e6/uL (4.3-5.7); RED CELL DISTRIBUTION WIDTH 14.2 % (11.7-14.4)
[2018-07-03 05:55] LABS: ANION GAP 14.7 mmol/L (8-16); BLOOD UREA NITROGEN 14 mg/dL (7-26); BUN/CREATININE RATIO 14 (6-25); CALCIUM 8.9 mg/dL (8.4-10.2); CARBON DIOXIDE 25 mmol/L (22-29); CHLORIDE 103 mmol/L (98-107); CREATININE, SERUM 0.97 mg/dL (0.72-1.25); EST GLOMERULAR FILTRATION RATE > 60 ML/MIN (60-); GLUCOSE 277 mg/dL (74-118); POTASSIUM 3.7 mmol/L (3.5-5.1); SODIUM 139 mmol/L (136-145)
--- NOTE | 2018-07-03 06:53 | NUR ---
Walking rounds done. Report received. Patient is awake c/o nausea and abdominal pain. EMAR to be reviewed. POC discussed. Pt aware NPO after clear breakfast. Patient instructed to call for assistance as needed and verbalized understanding. Will continue to monitor.
[2018-07-03] MEDS: METOCLOPRAMIDE HCL 10 MG/2ML VIAL IV SCH ×4 (07:21→20:30)
[2018-07-03] MEDS: INSULIN LISPRO 100 UNIT/1 ML 3ML VIAL SQ SCH ×4 (07:30→20:07)
[2018-07-03] MEDS: SODIUM CHLORIDE 0.9% 1000ML 1,000 ML IV SCH ×3 (08:38→20:07)
--- NOTE | 2018-07-03 09:30 | NUR ---
PT IS ALERT AND ORIENTED INDEPENDENT, OCCASIONAL SMOKER FRIEND YUMIKO ELENA [phone] PLAN IS TO RETURN HOME WITH NO NEEDS
[2018-07-03] MEDS: ONDANSETRON HCL INJ 2MG/ML 2ML 2 MG/ML VIAL IV PRN ×2 (14:43→20:48)
[2018-07-03] MEDS: PANTOPRAZOL 40MG/SOD CHL 0.9% 50 ML IV SCH ×2 (15:53→20:00)
--- NOTE | 2018-07-03 17:29 | NUR ---
Patient off unit to Endo.
[2018-07-03] MEDS ORDERED: KETAMINE HCL INJ 50 MG/ML 10 ML VIAL ONE (19:20)
[2018-07-03] MEDS ORDERED: MIDAZOLAM HCL 2 MG/2 ML VIAL ONE (19:20)
[2018-07-03] MEDS ORDERED: FENTANYL CITRATE/PF 100MCG/2 ML INJ ONE (19:20)
[2018-07-04] VITALS (8 sets, daily range): BP systolic 156–187; BP diastolic 76–93
[2018-07-04] MEDS: PANTOPRAZOL 40MG/SOD CHL 0.9% 50 ML IV SCH ×5 (00:17→20:23)
[2018-07-04] MEDS: HYDROMORPHONE 2MG/ML 2 MG/ML ML IV PRN ×6 (01:10→21:08)
[2018-07-04] MEDS: METOCLOPRAMIDE HCL 10 MG/2ML VIAL IV SCH ×4 (01:26→18:07)
[2018-07-04] MEDS: HYDRALAZINE HCL 20 MG/ML VIAL IV PRN (04:46)
[2018-07-04 07:30] LABS: BASOPHILS % 0.3 % (0.0-1.0); EOSINOPHILS % 0.1 % (0.0-6.0); HEMATOCRIT 34.5 % (38.2-49.6); HEMOGLOBIN 10.9 g/dL (14.0-18.0); LYMPHOCYTES # (AUTO) 0.9 (1.0-3.2); LYMPHOCYTES % 6.5 % (18.0-39.1); MEAN CORPUSCULAR HEMOGLOBIN 29.2 pg (28-32); MEAN CORPUSCULAR HGB CONC 31.6 g/dL (31-35); MEAN CORPUSCULAR VOLUME 92.5 fL (81-99); MONOCYTES % 7.6 % (4.4-11.3); NEUTROPHILS # (AUTO) 11.3 (2.1-6.9); NEUTROPHILS % 84.8 % (38.7-80.0); PLATELET COUNT 157 x10e3/uL (140-360); RED BLOOD COUNT 3.73 x10e6/uL (4.3-5.7); RED CELL DISTRIBUTION WIDTH 13.8 % (11.7-14.4)
[2018-07-04] MEDS: INSULIN LISPRO 100 UNIT/1 ML 3ML VIAL SQ SCH ×4 (08:00→21:00)
[2018-07-04 08:32] LABS: ALANINE AMINOTRANSFERASE 11 IU/L (0-55); ALBUMIN 3.4 g/dL (3.5-5.0); ALBUMIN/GLOBULIN RATIO 1.2 (0.8-2.0); ALKALINE PHOSPHATASE 81 IU/L (40-150); ANION GAP 16.5 mmol/L (8-16); BLOOD UREA NITROGEN 14 mg/dL (7-26); BUN/CREATININE RATIO 13 (6-25); CALCIUM 8.5 mg/dL (8.4-10.2); CARBON DIOXIDE 23 mmol/L (22-29); CHLORIDE 101 mmol/L (98-107); EST GLOMERULAR FILTRATION RATE > 60 ML/MIN (60-); GLUCOSE 288 mg/dL (74-118); MAGNESIUM 1.4 MG/DL (1.3-2.1); POTASSIUM 3.5 mmol/L (3.5-5.1); SODIUM 137 mmol/L (136-145)
[2018-07-04] MEDS: SODIUM CHLORIDE 0.9% 1000ML 1,000 ML IV SCH ×3 (08:40→20:23)
--- NOTE | 2018-07-04 17:00 | NUR ---
Patient is awake visiting with family in no distress. Call barrera within reach.
--- NOTE | 2018-07-04 19:00 | NUR ---
Report and rounds completed. Patient in bed, resting. Call light within reach. IV patent, NS infusing and protonix drip. Will continue to monitor.
[2018-07-04] MEDS: ONDANSETRON HCL INJ 2MG/ML 2ML 2 MG/ML VIAL IV PRN (21:08)
[2018-07-05] VITALS (8 sets, daily range): BP systolic 141–195; BP diastolic 68–93
[2018-07-05] MEDS: HYDRALAZINE HCL 20 MG/ML VIAL IV PRN
[2018-07-05] MEDS: HYDROMORPHONE 2MG/ML 2 MG/ML ML IV PRN ×6 (01:05→21:59)
[2018-07-05] MEDS: PANTOPRAZOL 40MG/SOD CHL 0.9% 50 ML IV SCH ×5 (03:06→22:00)
[2018-07-05] MEDS: METOCLOPRAMIDE HCL 10 MG/2ML VIAL IV SCH ×4 (05:34→18:04)
--- NOTE | 2018-07-05 06:19 | Operative Report ---
DATE OF PROCEDURE: 07/03/2018 SURGEON: Lang Torres MD PROCEDURES: EGD with biopsies and brushings. INDICATIONS FOR PROCEDURES: Intractable nausea and vomiting, history of diabetic gastroparesis. MEDICATIONS: The patient was done under MAC, please see anesthesiologist's note. PROCEDURE IN DETAIL: With the patient in left lateral decubitus position, a flexible fiberoptic Olympus gastroscope was introduced into the esophagus under direct visualization without any difficulty. Multiple serpiginous ulcers were noted in the mid and distal esophagus without active bleeding or stigmata of recent hemorrhage. Brushings were obtained to rule out superimposed Jenelle. The scope was then advanced with ease into the stomach. Mucosa overlying the antrum and the body revealed some patchy erythema and [id number]-ym-lxmynoar edema and biopsies were obtained and sent to stain for Helicobacter pylori. The pylorus was then intubated and the scope was advanced to the second portion of the duodenum. The scope was then withdrawn slowly, mucosa overlying the proximal second portion and the duodenal bulb grossly appeared to be within normal limits. The scope was then withdrawn back into the stomach and retroflexed, mucosa overlying the fundus and the cardia appeared to be within normal limits. The scope was then straightened out. The stomach was decompressed. The scope was subsequently withdrawn. The patient tolerated procedure well. IMPRESSION: 1. Ulcerative esophagitis. Brushings obtained to rule out superimposed Jenelle. 2. Gastritis, biopsied. Biopsies sent to stain for Helicobacter pylori. PLAN: Follow up histology. Continue clear liquid diet. Continue Reglan 10 mg IV a.c. t.i.d. and at bedtime, and the PPI drip. Lang Torres MD [facility] [place]/MODL /[id number] cc: Tavo Lei MD
[2018-07-05 06:44] LABS: BASOPHILS % 0.2 % (0.0-1.0); EOSINOPHILS % 0.1 % (0.0-6.0); HEMATOCRIT 35.5 % (38.2-49.6); HEMOGLOBIN 11.3 g/dL (14.0-18.0); LYMPHOCYTES # (AUTO) 0.5 (1.0-3.2); LYMPHOCYTES % 4.1 % (18.0-39.1); MEAN CORPUSCULAR HEMOGLOBIN 28.8 pg (28-32); MEAN CORPUSCULAR HGB CONC 31.8 g/dL (31-35); MEAN CORPUSCULAR VOLUME 90.3 fL (81-99); MONOCYTES # (AUTO) 1.6 (0.2-0.8); MONOCYTES % 13.3 % (4.4-11.3); NEUTROPHILS # (AUTO) 9.9 (2.1-6.9); NEUTROPHILS % 81.7 % (38.7-80.0); PLATELET COUNT 158 x10e3/uL (140-360); RED BLOOD COUNT 3.93 x10e6/uL (4.3-5.7); RED CELL DISTRIBUTION WIDTH 13.3 % (11.7-14.4)
[2018-07-05 07:01] LABS: ALANINE AMINOTRANSFERASE 8 IU/L (0-55); ALBUMIN 3.3 g/dL (3.5-5.0); ALBUMIN/GLOBULIN RATIO 1.1 (0.8-2.0); ALKALINE PHOSPHATASE 85 IU/L (40-150); ANION GAP 18.1 mmol/L (8-16); BLOOD UREA NITROGEN 13 mg/dL (7-26); BUN/CREATININE RATIO 11 (6-25); CALCIUM 8.3 mg/dL (8.4-10.2); CARBON DIOXIDE 23 mmol/L (22-29); CHLORIDE 99 mmol/L (98-107); CREATININE, SERUM 1.14 mg/dL (0.72-1.25); EST GLOMERULAR FILTRATION RATE > 60 ML/MIN (60-); GLUCOSE 309 mg/dL (74-118); POTASSIUM 3.1 mmol/L (3.5-5.1); SODIUM 137 mmol/L (136-145)
[2018-07-05] MEDS: INSULIN LISPRO 100 UNIT/1 ML 3ML VIAL SQ SCH ×4 (07:39→21:57)
[2018-07-05] MEDS: SODIUM CHLORIDE 0.9% 1000ML 1,000 ML IV SCH ×2 (12:17→21:51)
--- NOTE | 2018-07-05 12:35 | NUR ---
patient tolerated with full liquid , not in any distress
[2018-07-05] MEDS ORDERED: POTASSIUM CHLORIDE 20MEQ/100ML 200 ML IV ONE (16:00)
[2018-07-05] MEDS ORDERED: POTASSIUM CHLORIDE 20MEQ/100ML 100 ML IV ONE (16:00)
[2018-07-05] MEDS: POTASSIUM CHLORIDE 20MEQ/100ML 100 ML IV SCH ×2 (16:26→19:30)
--- NOTE | 2018-07-05 17:05 | NUR ---
rechecked BP Manually 161/60, c/o PAIN RATING 7/10, not in any distress, no vomitting
--- NOTE | 2018-07-05 18:45 | NUR ---
patient c/o potassium IV burning , requesting to restart little later, endorsed to next shift nurse
--- NOTE | 2018-07-05 19:00 | NUR ---
Report and rounds completed. IV fluid and protonix infusing, site CDI. Call light within reach. Will continue to monitor.
[2018-07-05] MEDS ORDERED: PROPOFOL IV EMULSION 10 MG/ML 50 ML VIAL ONE (19:25)
[2018-07-06] MEDS: METOCLOPRAMIDE HCL 10 MG/2ML VIAL IV SCH ×4 (00:20→18:20)
--- NOTE | 2018-07-06 00:20 | NUR ---
Patient reports sweating and requesting blood sugar to be checked, FSBS 181. Patient reports that sometimes he sweats and sometimes its because sugar is low. No further sweating noted. Refused total bed change, pad and pillow case changed. Will continue to monitor.
[2018-07-06] MEDS: SODIUM CHLORIDE 0.9% 1000ML 1,000 ML IV SCH ×3 (01:02→23:33)
[2018-07-06] MEDS: HYDROMORPHONE 2MG/ML 2 MG/ML ML IV PRN ×6 (02:00→23:09)
--- NOTE | 2018-07-06 02:20 | NUR ---
Dr Gregory Torres here rounding on patients
[2018-07-06] MEDS: PANTOPRAZOL 40MG/SOD CHL 0.9% 50 ML IV SCH ×5 (03:06→23:35)
[2018-07-06] MEDS: HYDRALAZINE HCL 20 MG/ML VIAL IV PRN (04:27)
--- NOTE | 2018-07-06 04:30 | NUR ---
MACHINE CANDLE MOLDER reported patient vomiting. Assessed patient and reports " I think I drank water too fast." Emesis bag give and will med with PRN zofran. Will continue to monitor.
[2018-07-06] MEDS: ONDANSETRON HCL INJ 2MG/ML 2ML 2 MG/ML VIAL IV PRN (04:31)
[2018-07-06 04:37] VITALS: BP 184/93
[2018-07-06 07:33] VITALS: BP 143/78
[2018-07-06] MEDS: INSULIN LISPRO 100 UNIT/1 ML 3ML VIAL SQ SCH ×4 (07:44→21:02)
[2018-07-06 07:45] VITALS: BP 143/78
[2018-07-06 11:10] VITALS: BP 137/79
--- NOTE | 2018-07-06 13:40 | NUR ---
Visit made by the Spiritual Care Department Pastoral Visitor, Natalie Reynolds. Pt sleeping soundly and no family present. Pastoral Visitor left a card describing availability of summer camp counselor and instructions on how to contact a summer camp counselor. MARTHA MARTINEZ Airplane Electrician Spiritual Care Department O: [phone] Pager: [phone] ([phone] number calling from)
[2018-07-06 15:21] VITALS: BP 148/72
--- NOTE | 2018-07-06 19:00 | NUR ---
Report and rounds completed, patient in bed resting. Iv fluid and protonix infusing. Call light within reach. Will continue to monitor
[2018-07-06 20:00] VITALS: BP 134/76
[2018-07-07] VITALS: BP 177/91
[2018-07-07] MEDS: METOCLOPRAMIDE HCL 10 MG/2ML VIAL IV SCH ×2 (00:19→06:11)
[2018-07-07] MEDS: HYDROMORPHONE 2MG/ML 2 MG/ML ML IV PRN ×2 (03:00→07:27)
[2018-07-07 04:00] VITALS: BP 138/76
[2018-07-07] MEDS: PANTOPRAZOL 40MG/SOD CHL 0.9% 50 ML IV SCH (05:09)
[2018-07-07 05:56] LABS: BASOPHILS % 0.5 % (0.0-1.0); EOSINOPHILS # (AUTO) 0.4 (0.0-0.4); EOSINOPHILS % 5.3 % (0.0-6.0); HEMATOCRIT 33.8 % (38.2-49.6); HEMOGLOBIN 11.2 g/dL (14.0-18.0); LYMPHOCYTES # (AUTO) 1.6 (1.0-3.2); LYMPHOCYTES % 20.6 % (18.0-39.1); MEAN CORPUSCULAR HEMOGLOBIN 28.7 pg (28-32); MEAN CORPUSCULAR HGB CONC 33.1 g/dL (31-35); MEAN CORPUSCULAR VOLUME 86.7 fL (81-99); MONOCYTES # (AUTO) 1.5 (0.2-0.8); MONOCYTES % 19.5 % (4.4-11.3); NEUTROPHILS # (AUTO) 4.2 (2.1-6.9); PLATELET COUNT 182 x10e3/uL (140-360); RED CELL DISTRIBUTION WIDTH 13.2 % (11.7-14.4)
--- NOTE | 2018-07-07 06:00 | NUR ---
Resting in bed, not issues or concerns at this time. Call light within reach. IV infusing, site CDI. Will continue to monitor.
[2018-07-07 06:23] LABS: ALBUMIN 3.1 g/dL (3.5-5.0); ALBUMIN/GLOBULIN RATIO 1.1 (0.8-2.0); ALKALINE PHOSPHATASE 68 IU/L (40-150); ANION GAP 11.7 mmol/L (8-16); BLOOD UREA NITROGEN 6 mg/dL (7-26); BUN/CREATININE RATIO 7 (6-25); CALCIUM 8.4 mg/dL (8.4-10.2); CARBON DIOXIDE 32 mmol/L (22-29); CHLORIDE 96 mmol/L (98-107); CREATININE, SERUM 0.85 mg/dL (0.72-1.25); EST GLOMERULAR FILTRATION RATE > 60 ML/MIN (60-); GLUCOSE 136 mg/dL (74-118); SODIUM 137 mmol/L (136-145)
[2018-07-07 06:24] LABS: ALANINE AMINOTRANSFERASE < 6 IU/L (0-55)
[2018-07-07 06:25] LABS: POTASSIUM 2.7 mmol/L (3.5-5.1)
--- NOTE | 2018-07-07 06:42 | NUR ---
Notified Dr Lei critical lab alert potassium 2.7. New Order Potassium Chloride 40 mEq X1 IV then patient can discharge home.
[2018-07-07] MEDS ORDERED: PANTOPRAZOLE SO40 MG PO (07:14)
[2018-07-07] MEDS ORDERED: REGLAN10 MG PO ×2 (07:15)
[2018-07-07] MEDS ORDERED: POTASSIUM CHLORIDE 20MEQ/100ML 200 ML IV ONE (07:15)
[2018-07-07] MEDS: INSULIN LISPRO 100 UNIT/1 ML 3ML VIAL SQ SCH (07:30)
[2018-07-07] MEDS ORDERED: POTASSIUM CHLORIDE 20 MEQ TAB CR PO STA (07:44)
--- NOTE | 2018-07-07 07:45 | NUR ---
Patient and are upset they have to wait 4 hours for 40 Potassium IV to infuse. stated," this is ridiculous and I have to be at work by 11." Dr. Lei notified and order changed to Potassium 40meQ PO x1 and then patient can be discharged.
[2018-07-07] MEDS ORDERED: POTASSIUM CHLORIDE 20MEQ/100ML 100 ML IV SCH (08:00)
--- NOTE | 2018-07-07 08:13 | Discharge Summary ---
DISCHARGE DIAGNOSES: 1. Esophagitis. 2. Peptic ulcer disease. 3. Gastroparesis. 4. Diabetes. HISTORY OF PRESENT ILLNESS: The patient is a gentleman with history of diabetes and personal history of gastroparesis, who presented with abdominal pain, nausea, vomiting, decreased p.o. intake, electrolytes imbalance, and dehydration, brought in, placed on IV fluids, and his electrolytes replaced, was seen by buffet attendant, Dr. Lang Torres, who scoped on him, which shows severe esophagitis with peptic ulcer disease, which is negative for candidiasis. He was placed on IV antiemetics as well as IV Protonix drip, with significant improvement in symptoms within 48 hours. Then at the time of discharge, the patient was actually able to tolerate his p.o. intake well. He felt like he was back to his baseline, so he really wanted to go home, so he was discharged home and followup with his PCP as well as Dr. Lang Torres in 1 to 2 weeks. Please see hospital chart for full details. MD JAYDA Ponce/[facility] /[id number]
--- NOTE | 2018-07-07 08:34 | NUR ---
Patient discharged home with written discharge instructions and prescriptions. Both spouse and patient verbalized understanding. IV dc'd earlier, cath intact and small dressing applied.
== END 2018-07-07 08:40 | disposition home or self-care (01) | DRG 382 ==
LOC: ER 00:42 → ERHOLD 09:01 → IMCU 19:39 → OBSVTOIN 07-05 11:53
PROVIDERS: ADMIT Internal Medicine; ATTEND Internal Medicine
PROC: 0DD28ZX Extraction of Middle Esophagus, Via Natural or Artificial Opening Endoscopic, Diagnostic (ICD-10-PCS; 2018-07-03)
PROC: 0DB68ZX Excision of Stomach, Via Natural or Artificial Opening Endoscopic, Diagnostic (ICD-10-PCS; 2018-07-03)
PROC: 0DB78ZX Excision of Stomach, Pylorus, Via Natural or Artificial Opening Endoscopic, Diagnostic (ICD-10-PCS; 2018-07-03)
PROC: 0DD38ZX Extraction of Lower Esophagus, Via Natural or Artificial Opening Endoscopic, Diagnostic (ICD-10-PCS; principal; 2018-07-03 17:45)
DX: K22.10 Ulcer of esophagus without bleeding (principal); K29.70 Gastritis, unspecified, without bleeding; E11.22 Type 2 diabetes mellitus with diabetic chronic kidney disease; I12.9 Hypertensive chronic kidney disease with stage 1 through stage 4 chronic kidney disease, or unspecified chronic kidney disease; N18.3 Chronic kidney disease, stage 3 (moderate); E11.65 Type 2 diabetes mellitus with hyperglycemia; E86.0 Dehydration; E87.8 Other disorders of electrolyte and fluid balance, not elsewhere classified; D64.9 Anemia, unspecified; Z79.4 Long term (current) use of insulin
CPT/HCPCS: 36415; 43239; 80048; 80053; 81001; 82150; 82948; 83690; 83735; 85025; 87106; 87205; 88112; 88305; 88312; 93005; 99284; G0378; J0360; J1630; J2250; J2405; J2765; J3480; J7030

== ENCOUNTER 2018-08-10 13:35 | Emergency (ER) | payer MEDICARE ==
[~2018-08-10] VITALS: Ht 185.4 cm; Wt 87.5 kg
[~2018-08-10 13:35] MED LIST: DICYCLOMINE HCL10 MG PO; GLIMEPIRIDE2 MG PO; LANTUS 3ML100 UNITS/ SQ; LISINOPRIL5 MG PO; METOCLOPRAMIDE10 MG PO; NOVOLOG100 UNITS1 SQ; ONDANSETRON HCL4 MG SL; PANTOPRAZOLE SO40 MG PO; REGLAN10 MG PO; ULTRAM 50MG50 MG PO
[2018-08-10] MEDS ORDERED: SODIUM CHLORIDE 0.9% 1000ML 1,000 ML IV STA (13:59)
[2018-08-10] MEDS ORDERED: PROMETHAZINE HCL (IM) 25 MG/ML VIAL IV STA (13:59)
[2018-08-10] MEDS ORDERED: PROMETHAZINE 25MG/SOD CHL 0.9% 50 ML IV ONE (14:15)
[2018-08-10 15:48] VITALS: BP 151/76
[2018-08-10] MEDS ORDERED: CLONIDINE HCL 0.1 MG TAB PO ONE (16:00)
== END 2018-08-10 17:00 | disposition home or self-care (01) ==
LOC: FSED 13:35
DX: R10.84 Generalized abdominal pain (principal); R11.2 Nausea with vomiting, unspecified; K31.84 Gastroparesis; E11.9 Type 2 diabetes mellitus without complications
CPT/HCPCS: 36415; 80053; 81003; 83690; 85025; 99283; J2550; J7030

== ENCOUNTER → 2018-09-20 | Outpatient (CLI) | payer MEDICARE ==
--- NOTE | 2018-09-21 01:00 | Diagnostic Imaging Report ---
Solid-phase gastric emptying study Reason for examination: GERD with esophagitis; gastritis The protocol used for this study is based on the Consensus Recommendations for Gastric Scintigraphy by the [place] [employer] and the Society of Nuclear Medicine. Clinical information: The patient is diabetic; blood sugar this morning is 82 mg/dL. The patient has not had previous gastrointestinal surgery. The patient is on metoclopramide and dicyclomine. The patient has been fasting for at least 6 hours prior to this exam. Radiopharmaceutical: Tc-99m sulfur colloid 1 mCi Report: The radiopharmaceutical was added to 1/2 cup egg whites that were then prepared and served with 2 pieces of white bread toasted, 30 grams of jam and 4 ounces of water. The patient took the meal orally without difficulty. Images were obtained of the abdomen in the anterior and posterior projections at 10 minutes post the meal and at 1and 2 hours. Uptake was determined from the geometric mean of the anterior and posterior counts and the counts were corrected for decay of the radiolabel. The percent gastric retention of the labeled meal at: 1 hour was 39% (normal 30-90%) 2 hours was 17% (normal <60%; if less than 35% at 2 hours, study is considered normal) Impression: The pattern of gastric emptying is normal. Scan findings do not support the clinical diagnosis of gastroparesis. Signed by: Dr. Dixie Ledesma M.D. on 09/21/2018 12:57 AM
== END ==
LOC: NM 08:55
PROVIDERS: ATTEND Internal Medicine Gastroenterology
DX: K31.84 Gastroparesis (principal); K21.0 Gastro-esophageal reflux disease with esophagitis; K22.10 Ulcer of esophagus without bleeding
CPT/HCPCS: 78264; A9541

== ENCOUNTER 2018-09-28 12:15 | Emergency (ER) | payer MEDICARE ==
[~2018-09-28] VITALS: Ht 185.4 cm; Wt 83.0 kg
[2018-09-28] MEDS ORDERED: SODIUM CHLORIDE 0.9% 1000ML 1,000 ML IV SCH (12:45)
[2018-09-28] MEDS ORDERED: METOCLOPRAMIDE HCL 10 MG/2ML VIAL IV ONE (12:45)
[2018-09-28] MEDS ORDERED: PANTOPRAZOLE 40 MG 10ML VIAL IV STA (12:48)
[2018-09-28] MEDS ORDERED: DICYCLOMINE HCL 20 MG/2 ML VIAL IM ONE (13:00)
[2018-09-28] MEDS ORDERED: SODIUM CHLORIDE 0.9% 1000ML 1,000 ML IV ONE (13:00)
[2018-09-28] MEDS ORDERED: MORPHINE SULFATE INJ 10 MG/ML IV ONE (13:00)
[2018-09-28] MEDS ORDERED: MORPHINE SULFATE INJ 4 MG/ML INJ 1ML ONE (14:00)
[2018-09-28] MEDS ORDERED: METOCLOPRAMIDE HCL 10 MG/2ML VIAL ONE (14:00)
[2018-09-28] MEDS ORDERED: SODIUM CHLORIDE 0.9% 1000ML 1,000 ML ONE ×2 (14:00→15:16)
[2018-09-28] MEDS ORDERED: PANTOPRAZOLE 40 MG 10ML VIAL ONE (14:00)
[2018-09-28] MEDS ORDERED: MORPHINE SULFATE INJ 4 MG/ML INJ 1ML IV NR (14:30)
[2018-09-28 16:26] VITALS: BP 160/99
== END 2018-09-28 16:32 | disposition home or self-care (01) ==
LOC: FSED 12:15
DX: R10.9 Unspecified abdominal pain (principal); R11.2 Nausea with vomiting, unspecified; E10.43 Type 1 diabetes mellitus with diabetic autonomic (poly)neuropathy; I10 Essential (primary) hypertension; E78.5 Hyperlipidemia, unspecified
CPT/HCPCS: 80053; 80076; 81003; 85025; 99283; C9113; J2270; J2765; J7030

== ENCOUNTER 2018-11-22 16:40 | Inpatient (IN) | payer MEDICARE ==
[~2018-11-22] VITALS: Ht 185.4 cm; Wt 88.5 kg
[2018-11-22] MEDS ORDERED: PANTOPRAZOLE 40 MG 10ML VIAL IV STA (17:44)
[2018-11-22] MEDS ORDERED: PANTOPRAZOLE INJ 40 MG in SODIUM CHLORIDE 0.9% 50ML 50 ML IV SCH (17:45)
[2018-11-22] MEDS ORDERED: SODIUM CHLORIDE 0.9% 1000ML 1,000 ML IV ONE (17:45)
--- NOTE | 2018-11-22 18:08 | NUR ---
PT TO BE ADMITTED, PT AWARE OF POC
--- NOTE | 2018-11-22 18:09 | NUR ---
PT VOMITING, DR PEREZ NOTIFIED, ORDERS RECEIVED
[2018-11-22] MEDS ORDERED: PROTONIX 200MG/SODIUM CHLORIDE 0.9% 250 ML BAG IV SCH (18:15)
[2018-11-22] MEDS ORDERED: ONDANSETRON HCL INJ 2MG/ML 2ML 2 MG/ML VIAL IV ONE (18:15)
[2018-11-22] MEDS ORDERED: DEXTROSE 50% SYRINGE 50 ML IV PRN (18:15)
[2018-11-22] MEDS ORDERED: DONNATAL/LIDOCAINE/MAALOX 30 ML SUSP PO STA (18:18)
[2018-11-22] MEDS ORDERED: PANTOPRAZOLE 40 MG 10ML VIAL ONE (18:31)
[2018-11-22] MEDS ORDERED: BELLADONNA ALK/PHENOBARBITAL 5 ML UDC ONE (18:35)
[2018-11-22] MEDS ORDERED: MAGNESIUM/ALUMINUM/SIMETHICONE 30 ML UDC ONE (18:35)
[2018-11-22] MEDS ORDERED: LIDOCAINE VISC 2% SOLN 15 ML UDC ONE (18:35)
--- NOTE | 2018-11-22 18:47 | Diagnostic Imaging Report ---
EXAMINATION: CXR 1 VIEW - HOPD COMPARISON: None INDICATION: Hematemesis ^[id number] ^1755 DISCUSSION: Frontal view of the chest obtained at 1755 hours. HEART AND MEDIASTINUM: The cardiomediastinal silhouette is unremarkable. LINES: None. LUNGS: The lungs are well inflated and clear. No pneumonia or pulmonary edema. PLEURA: No pleural effusion or pneumothorax. BONES AND SOFT TISSUES: A linear lucency across the right humeral neck is not specific. The soft tissues are normal. Visualized upper abdomen is unremarkable. IMPRESSION: No acute cardiopulmonary disease. Lucency across the right humeral neck may be artifactual. Please correlate for history of trauma. Signed by: Dr. Michelle White MD on 11/22/2018 6:44 PM
--- NOTE | 2018-11-22 18:54 | NUR ---
[facility] CALLED FOR TRANSPORT 45MIN ETA
[2018-11-22] MEDS: SODIUM CHLORIDE 0.9% 1000ML 1,000 ML IV SCH ×2 (18:56→23:10)
[2018-11-22] MEDS: PANTOPRAZOL 40MG/SOD CHL 0.9% 50 ML IV SCH ×2 (18:56→23:45)
--- NOTE | 2018-11-22 19:11 | NUR ---
PT VOMITING, DR PEREZ NOTIFIED, ORDERS RECEIVED
[2018-11-22] MEDS ORDERED: PROMETHAZINE 12.5MG/ NACL 0.9% 12.5 MG/50 ML BAG IV ONE (19:15)
[2018-11-22] MEDS ORDERED: PROMETHAZINE HCL (IM) 25 MG/ML VIAL ONE (19:22)
[2018-11-22] MEDS ORDERED: SODIUM CHLORIDE 0.9% 1000ML 1,000 ML ONE (19:22)
[2018-11-22 20:00] VITALS: BP 170/76
[2018-11-22] MEDS: INSULIN REGULAR, HUMAN 100 UNIT/1 ML 3ML VIAL SQ SCH (21:00)
[2018-11-22] MEDS: MORPHINE SULFATE 2 MG/ML SYR 1ML IV PRN (22:00)
[2018-11-22] MEDS: ONDANSETRON HCL INJ 2MG/ML 2ML 2 MG/ML VIAL IV PRN (22:00)
[2018-11-23] VITALS (10 sets, daily range): BP systolic 154–197; BP diastolic 83–89
[2018-11-23] MEDS ORDERED: METOCLOPRAMIDE HCL 10 MG/2ML VIAL IV STA (00:58)
[2018-11-23] MEDS: ONDANSETRON HCL INJ 2MG/ML 2ML 2 MG/ML VIAL IV PRN ×4 (02:16→22:10)
[2018-11-23] MEDS: MORPHINE SULFATE 2 MG/ML SYR 1ML IV PRN ×4 (02:16→20:40)
--- NOTE | 2018-11-23 02:50 | NUR ---
PT IS TRANSFERRED FROM ER .PT IS AOX3 .C/O ABD PAIN RESPIRATIONS ARE EVEN UN LABORED SKIN WARM AND DRY TO TOUCH .ASSESSMENT DONE AND ORIENTED TO THE ENVIRONMENT.DR GARCIA SAW THE PT.RT WRIST IV NS AT 200CC/HR .PT IS PROTONIX DRIP .CALL LIGHT WITH IN REACH .CONTINUE TO MONITOR
[2018-11-23] MEDS: PANTOPRAZOL 40MG/SOD CHL 0.9% 50 ML IV SCH ×4 (04:45→19:45)
[2018-11-23] MEDS: SODIUM CHLORIDE 0.9% 1000ML 1,000 ML IV SCH ×4 (05:06→19:10)
[2018-11-23] MEDS: METOCLOPRAMIDE HCL 10 MG/2ML VIAL IV SCH ×3 (05:40→17:50)
[2018-11-23 06:04] LABS: BASOPHILS % 0.4 % (0.0-1.0); EOSINOPHILS % 0.1 % (0.0-6.0); HEMATOCRIT 30.7 % (38.2-49.6); HEMOGLOBIN 9.8 g/dL (14.0-18.0); LYMPHOCYTES # (AUTO) 1.2 (1.0-3.2); LYMPHOCYTES % 13.2 % (18.0-39.1); MEAN CORPUSCULAR HEMOGLOBIN 28.7 pg (28-32); MEAN CORPUSCULAR HGB CONC 31.9 g/dL (31-35); MEAN CORPUSCULAR VOLUME 89.8 fL (81-99); MONOCYTES # (AUTO) 1.1 (0.2-0.8); MONOCYTES % 11.6 % (4.4-11.3); NEUTROPHILS % 74.3 % (38.7-80.0); PLATELET COUNT 206 x10e3/uL (140-360); RED BLOOD COUNT 3.42 x10e6/uL (4.3-5.7); RED CELL DISTRIBUTION WIDTH 14.4 % (11.7-14.4)
[2018-11-23 06:22] LABS: ANION GAP 13.7 mmol/L (8-16); BLOOD UREA NITROGEN 18 mg/dL (7-26); BUN/CREATININE RATIO 14 (6-25); CALCIUM 8.8 mg/dL (8.4-10.2); CARBON DIOXIDE 26 mmol/L (22-29); CHLORIDE 106 mmol/L (98-107); CREATININE, SERUM 1.29 mg/dL (0.72-1.25); EST GLOMERULAR FILTRATION RATE > 60 ML/MIN (60-); GLUCOSE 179 mg/dL (74-118); POTASSIUM 3.7 mmol/L (3.5-5.1); SODIUM 142 mmol/L (136-145)
--- NOTE | 2018-11-23 07:21 | NUR ---
PT RESTED DURING THE NIGHT .C/O PAIN GIVEN ORDERED PAIN MEDICATION .BEDSIDE REPORT GIVEN TO THE ON COMING NURSE.CALL LIGHT WITH IN REACH .CONTINUE TO MONITOR +
--- NOTE | 2018-11-23 08:00 | NUR ---
The pt. is in bed awake and denies pain or discomfort currently and continues with iv fluids and protonix drip.
[2018-11-23] MEDS: INSULIN REGULAR, HUMAN 100 UNIT/1 ML 3ML VIAL SQ SCH ×4 (08:23→20:22)
--- NOTE | 2018-11-23 16:05 | NUR ---
Visit made by the Spiritual Care Department Pastoral Visitor, Natalie Reynolds. Pt sleeping soundly and no family present. Pastoral Visitor left a card describing availability of residential green building designer and instructions on how to contact a residential green building designer. MARTHA MARTINEZ Automatic Corn Grinder Operator Spiritual Care Department O: [phone] Pager: [phone] ([phone] number calling from)
[2018-11-23] MEDS: HYDRALAZINE HCL 20 MG/ML VIAL IV PRN (20:32)
[2018-11-24] VITALS (8 sets, daily range): BP systolic 123–168; BP diastolic 62–79
[2018-11-24] MEDS: METOCLOPRAMIDE HCL 10 MG/2ML VIAL IV SCH ×4 (00:33→17:54)
[2018-11-24] MEDS: SODIUM CHLORIDE 0.9% 1000ML 1,000 ML IV SCH ×5 (00:33→20:17)
[2018-11-24] MEDS: PANTOPRAZOL 40MG/SOD CHL 0.9% 50 ML IV SCH ×5 (00:56→21:14)
[2018-11-24] MEDS: MORPHINE SULFATE 2 MG/ML SYR 1ML IV PRN ×6 (00:56→22:35)
--- NOTE | 2018-11-24 01:24 | NUR ---
Patient refused SCDs.
[2018-11-24 03:14] LABS: BASOPHILS # (AUTO) 0.1 (0.0-0.1); BASOPHILS % 0.8 % (0.0-1.0); EOSINOPHILS % 0.4 % (0.0-6.0); HEMATOCRIT 30.3 % (38.2-49.6); HEMOGLOBIN 9.6 g/dL (14.0-18.0); LYMPHOCYTES # (AUTO) 1.2 (1.0-3.2); LYMPHOCYTES % 13.6 % (18.0-39.1); MEAN CORPUSCULAR HEMOGLOBIN 28.4 pg (28-32); MEAN CORPUSCULAR HGB CONC 31.7 g/dL (31-35); MEAN CORPUSCULAR VOLUME 89.6 fL (81-99); MONOCYTES # (AUTO) 0.6 (0.2-0.8); MONOCYTES % 7.2 % (4.4-11.3); NEUTROPHILS # (AUTO) 6.5 (2.1-6.9); NEUTROPHILS % 77.5 % (38.7-80.0); PLATELET COUNT 198 x10e3/uL (140-360); RED BLOOD COUNT 3.38 x10e6/uL (4.3-5.7); RED CELL DISTRIBUTION WIDTH 14.1 % (11.7-14.4)
[2018-11-24 03:45] LABS: ANION GAP 15.8 mmol/L (8-16); BLOOD UREA NITROGEN 20 mg/dL (7-26); BUN/CREATININE RATIO 16 (6-25); CALCIUM 8.6 mg/dL (8.4-10.2); CARBON DIOXIDE 23 mmol/L (22-29); CHLORIDE 103 mmol/L (98-107); CREATININE, SERUM 1.22 mg/dL (0.72-1.25); EST GLOMERULAR FILTRATION RATE > 60 ML/MIN (60-); GLUCOSE 178 mg/dL (74-118); POTASSIUM 3.8 mmol/L (3.5-5.1); SODIUM 138 mmol/L (136-145)
[2018-11-24 03:50] LABS: LIPASE < 4 U/L (8-78)
--- NOTE | 2018-11-24 07:00 | NUR ---
RECEIVED AM REPORT FROM PAIGE GTZ AND MORNING ROUNDS DONE. PT IS SLEEPING, NO S/S OF DISTRESS. SIDE RAILS UP AND CALL LIGHT WITHIN REACH
[2018-11-24] MEDS: INSULIN REGULAR, HUMAN 100 UNIT/1 ML 3ML VIAL SQ SCH ×4 (08:00→20:50)
[2018-11-24] MEDS: ONDANSETRON HCL INJ 2MG/ML 2ML 2 MG/ML VIAL IV PRN ×2 (08:18→22:35)
[2018-11-24 10:22] LABS: BILIRUBIN,URINE NEGATIVE (NEGATIVE); CLARITY,URINE CLEAR (CLEAR); COLOR,URINE YELLOW (YELLOW); KETONES,URINE 1+ (NEGATIVE); LEUKOCYTE ESTERASE ,URINE NEGATIVE (NEGATIVE); NITRITE,URINE NEGATIVE (NEGATIVE); PROTEIN,URINE DIPSTICK NEGATIVE (NEGATIVE); URINE UROBILINOGEN 0.2 mg/dL (0.2 - 1)
[2018-11-24 10:48] LABS: BACTERIA,URINE MODERATE /HPF; EPITHELIAL CELLS,URINE FEW /LPF; RBC,URINE 0-5 /HPF (0-5)
--- NOTE | 2018-11-24 11:21 | NUR ---
EDUCATED ABOUT IMM, SIGNED, FILED IN CHART, WITH COPY LEFT WITH FAMILY AT BEDSIDE.
--- NOTE | 2018-11-24 20:50 | NUR ---
PATIENT AOX4, NO DISTRESS NOTED. PATIENT DENIES PAIN AT THIS TIME, BED IS LOCKED AND LOW, CALL LIGHT WITHIN REACH, WILL CONTINUE TO MONITOR.
[2018-11-25] VITALS: BP 140/65
[2018-11-25] MEDS: METOCLOPRAMIDE HCL 10 MG/2ML VIAL IV SCH ×2 (00:50→06:45)
[2018-11-25] MEDS: PANTOPRAZOL 40MG/SOD CHL 0.9% 50 ML IV SCH (02:52)
[2018-11-25 04:00] VITALS: BP 168/88
[2018-11-25] MEDS: SODIUM CHLORIDE 0.9% 1000ML 1,000 ML IV SCH (04:13)
[2018-11-25] MEDS: HYDRALAZINE HCL 20 MG/ML VIAL IV PRN (04:26)
[2018-11-25] MEDS: MORPHINE SULFATE 2 MG/ML SYR 1ML IV PRN ×2 (04:27→10:20)
[2018-11-25] MEDS: ONDANSETRON HCL INJ 2MG/ML 2ML 2 MG/ML VIAL IV PRN ×2 (04:27→10:20)
[2018-11-25 05:36] LABS: BASOPHILS # (AUTO) 0.1 (0.0-0.1); BASOPHILS % 0.5 % (0.0-1.0); EOSINOPHILS # (AUTO) 0.2 (0.0-0.4); HEMATOCRIT 28.1 % (38.2-49.6); LYMPHOCYTES # (AUTO) 2.5 (1.0-3.2); LYMPHOCYTES % 24.7 % (18.0-39.1); MEAN CORPUSCULAR HEMOGLOBIN 28.1 pg (28-32); MEAN CORPUSCULAR VOLUME 87.8 fL (81-99); MONOCYTES # (AUTO) 1.2 (0.2-0.8); MONOCYTES % 12.2 % (4.4-11.3); NEUTROPHILS # (AUTO) 6.1 (2.1-6.9); NEUTROPHILS % 60.5 % (38.7-80.0); PLATELET COUNT 185 x10e3/uL (140-360); RED CELL DISTRIBUTION WIDTH 13.7 % (11.7-14.4)
[2018-11-25 05:57] LABS: ANION GAP 9.3 mmol/L (8-16); BLOOD UREA NITROGEN 15 mg/dL (7-26); BUN/CREATININE RATIO 13 (6-25); CALCIUM 8.4 mg/dL (8.4-10.2); CARBON DIOXIDE 27 mmol/L (22-29); CHLORIDE 105 mmol/L (98-107); CREATININE, SERUM 1.17 mg/dL (0.72-1.25); EST GLOMERULAR FILTRATION RATE > 60 ML/MIN (60-); GLUCOSE 247 mg/dL (74-118); POTASSIUM 3.3 mmol/L (3.5-5.1); SODIUM 138 mmol/L (136-145)
[2018-11-25] MEDS ORDERED: NORVASC10 MG PO (06:19)
[2018-11-25] MEDS ORDERED: PANTOPRAZOLE SO40 MG PO (06:19)
[2018-11-25] MEDS ORDERED: REGLAN10 MG PO (06:19)
[2018-11-25] MEDS ORDERED: POTASSIUM CHLORIDE 20 MEQ TAB CR PO ONE (06:30)
[2018-11-25] MEDS: AMLODIPINE BESYLATE 10 MG TAB PO SCH ×2 (07:05→09:10)
--- NOTE | 2018-11-25 07:19 | NUR ---
PATIENT IN BED RESTING WITH EYES CLOSED, NO RESPIRATORY DISTRESS OBSERVED. IV FLUID INFUSING ORDERED. BED IN LOWER POSITION, CALL LIGHT AT REACH.
[2018-11-25 07:25] VITALS: BP 168/88
[2018-11-25] MEDS: INSULIN REGULAR, HUMAN 100 UNIT/1 ML 3ML VIAL SQ SCH ×2 (07:30→11:30)
[2018-11-25 07:49] VITALS: BP 168/88
[2018-11-25] MEDS ORDERED: AMLODIPINE BESYLATE 10 MG TAB PO SCH (09:00)
[2018-11-25] MEDS ORDERED: LISINOPRIL 10 MG TAB PO SCH (09:00)
--- NOTE | 2018-11-25 10:52 | NUR ---
PATIENT C/O GENERALIZED PAIN, MEDICATED ORDERED. PATIENT STATED THAT HE IS FEELING BETTER. WILL CONTINUE TO MONITOR.
[2018-11-25 11:29] VITALS: BP 147/77
[2018-11-25 15:48] VITALS: BP 162/86
--- NOTE | 2018-11-25 16:10 | NUR ---
PATIENT DISCHARGED HOME. DISCHARGE INSTRUCTIONS, PRESCRIPTIONS, AND FOLLOW UP GIVEN TO PATIENT, HE VERBALIZED UNDERSTANDING. IV TO RIGHT WRIST REMOVED WITH TIP INTACT. ALL PERSONAL ITEMS TAKEN WITH PATIENT. REFUSED WHEEL CHAIR, BUT WAS ACCOMPANY BY HOSPITAL STAFF TO FRONT LOBBY IN STABLE CONDITION.
--- NOTE | 2018-11-26 07:56 | Discharge Summary ---
ADMISSION DIAGNOSES: Gastroparesis, type 2 diabetes, hypertension. DISCHARGE DIAGNOSES: Gastroparesis, type 2 diabetes, hypertension, hypokalemia. HISTORY: PUD, gastroparesis, type 2 diabetes, hypertension. SURGICAL HISTORY: None. FAMILY HISTORY: The patient's uncles have diabetes. SOCIAL HISTORY: The patient admits to smoking weed occasionally. His last joint was 2 days ago. HOSPITAL COURSE: A 43-year-old male, complains of nausea and vomiting and epigastric abdominal pain that began yesterday. He says the emesis was blood-tinged near the end. He denies black or bloody stools, fever, and diarrhea. On admission, the patient was started on a Protonix drip and Reglan. His lipase was normal, and GI was consulted. Over the course of a couple of days, the diet was advanced and the patient tolerated the diet well. The Protonix drip was stopped and the patient is still able to eat and keep the food down. He will discharge home with Norvasc 10 daily and renewed prescriptions for Protonix and Reglan. The patient understands discharge instructions and agrees to plan. Vital signs stable, the patient afebrile. Dictated by Leia Kendrick NP MD BUFFY Portillo/[facility] /[id number]
== END 2018-11-25 16:05 | disposition home or self-care (01) | DRG 74 ==
LOC: FSED 16:40 → ERHOLD 18:24 → MED/SURG3 19:47
PROVIDERS: ADMIT Internal Medicine; ATTEND Internal Medicine
DX: E11.43 Type 2 diabetes mellitus with diabetic autonomic (poly)neuropathy (principal); K92.0 Hematemesis; K31.84 Gastroparesis; E11.65 Type 2 diabetes mellitus with hyperglycemia; Z79.4 Long term (current) use of insulin; I10 Essential (primary) hypertension; E87.6 Hypokalemia; F12.10 Cannabis abuse, uncomplicated; K27.9 Peptic ulcer, site unspecified, unspecified as acute or chronic, without hemorrhage or perforation; Z83.3 Family history of diabetes mellitus; K21.9 Gastro-esophageal reflux disease without esophagitis
CPT/HCPCS: 36415; 71045; 80048; 80076; 81001; 81003; 82948; 83690; 85025; 85610; 86850; 86900; 87040; 93005; 99284; J0360; J1817; J2270; J2405; J2550; J2765; J7030

== ENCOUNTER 2018-12-12 17:07 | Emergency (ER) | payer MEDICARE ==
[~2018-12-12] VITALS: Ht 185.4 cm; Wt 84.0 kg
[~2018-12-12 17:07] MED LIST changes: +NORVASC10 MG PO
[2018-12-12] MEDS ORDERED: SODIUM CHLORIDE 0.9% 1000ML 1,000 ML IV SCH ×3 (17:30→18:30)
[2018-12-12] MEDS ORDERED: METOCLOPRAMIDE HCL 10 MG/2ML VIAL ONE (17:38)
[2018-12-12] MEDS ORDERED: SODIUM CHLORIDE 0.9% 1000ML 2,000 ML ONE (17:38)
[2018-12-12] MEDS ORDERED: FAMOTIDINE 20 MG/2 ML VIAL IV ONE ×2 (17:38→18:00)
[2018-12-12] MEDS ORDERED: HYDROMORPHONE 1MG/1ML INJ IV ONE (17:48)
--- NOTE | 2018-12-12 17:55 | NUR ---
Called [facility] to transport blood and urine to the lab at [facility].
[2018-12-12] MEDS ORDERED: METOCLOPRAMIDE HCL 10 MG/2ML VIAL IV ONE (18:00)
[2018-12-12] MEDS ORDERED: MORPHINE SULFATE INJ 4 MG/ML INJ 1ML IV ONE (18:00)
--- NOTE | 2018-12-12 18:15 | NUR ---
Labs picked up and transported to the lab
[2018-12-12] MEDS ORDERED: MORPHINE SULFATE INJ 4 MG/ML INJ 1ML ONE (18:23)
[2018-12-12] MEDS ORDERED: ACETAMINOPHEN 325 MG TAB PO ONE (18:30)
[2018-12-12] MEDS ORDERED: ACETAMINOPHEN 325 MG TAB ONE (18:30)
[2018-12-12] MEDS ORDERED: SODIUM CHLORIDE 0.9% 1000ML 1,000 ML ONE (18:34)
[2018-12-12 18:50] LABS: MAGNESIUM 1.8 MG/DL (1.3-2.1)
[2018-12-12 18:51] LABS: LIPASE < 4 U/L (8-78)
[2018-12-12] MEDS ORDERED: PHENERGAN SUPP25 MG RC (19:01)
[2018-12-12] MEDS ORDERED: ONDANSETRON ODT8 MG PO (19:01)
--- NOTE | 2018-12-12 19:10 | NUR ---
iv dcd for discharge. pt sitting up on side of bed vomiting and now thinking he needs to stay and be admitted. aware.
[2018-12-12 19:14] VITALS: BP 166/88
== END 2018-12-12 19:35 | disposition home or self-care (01) ==
LOC: FSED 17:07
DX: R11.2 Nausea with vomiting, unspecified (principal); R10.13 Epigastric pain; R19.7 Diarrhea, unspecified; E11.43 Type 2 diabetes mellitus with diabetic autonomic (poly)neuropathy; I10 Essential (primary) hypertension; F17.210 Nicotine dependence, cigarettes, uncomplicated
CPT/HCPCS: 36415; 80053; 81003; 83690; 83735; 85025; 87086; 93005; 96374; 96375; 99284; J1170; J2270; J2765; J7030

== ENCOUNTER 2018-12-13 06:33 | Emergency (ER) | payer MEDICARE ==
[~2018-12-13] VITALS: Ht 185.4 cm; Wt 83.9 kg
[~2018-12-13 06:33] MED LIST changes: +ONDANSETRON ODT8 MG PO; +PHENERGAN SUPP25 MG RC
[2018-12-13] MEDS ORDERED: MORPHINE SULFATE INJ 4 MG/ML INJ 1ML IV STA (06:38)
[2018-12-13] MEDS ORDERED: FAMOTIDINE 20 MG/2 ML VIAL IV STA (06:38)
[2018-12-13] MEDS ORDERED: METOCLOPRAMIDE HCL 10 MG/2ML VIAL IV ONE (06:45)
[2018-12-13] MEDS ORDERED: SODIUM CHLORIDE 0.9% 1000ML 1,000 ML IV SCH (06:45)
[2018-12-13] MEDS ORDERED: SODIUM CHLORIDE 0.9% 1000ML 1,000 ML IV ONE (06:45)
[2018-12-13] MEDS ORDERED: METOCLOPRAMIDE HCL 10 MG/2ML VIAL ONE (07:12)
[2018-12-13] MEDS ORDERED: SODIUM CHLORIDE 0.9% 1000ML 1,000 ML ONE ×2 (07:13→07:44)
[2018-12-13] MEDS ORDERED: FAMOTIDINE 20 MG/2 ML VIAL IV ONE (07:13)
[2018-12-13] MEDS ORDERED: MORPHINE SULFATE INJ 4 MG/ML INJ 1ML ONE (07:13)
[2018-12-13] MEDS ORDERED: LABETALOL HCL 5 MG/ML 20ML VIAL IV STA (07:21)
[2018-12-13] MEDS ORDERED: LABETALOL HCL 20 ML ONE (07:44)
[2018-12-13] MEDS ORDERED: INSULIN REGULAR, HUMAN 100 UNIT/1 ML 3ML VIAL IV ONE (07:45)
--- NOTE | 2018-12-13 07:45 | NUR ---
PT TO BE TRANSFERED TO [facility], PT AND FAMILY AWARE OF POC, VITAL SIGNS STABLE, PT VOICES NO COMPLAINTS AT THIS TIME.
--- NOTE | 2018-12-13 07:55 | NUR ---
[facility] CALLED FOR TRANSPORT 30MIN ETA
[2018-12-13] MEDS ORDERED: INSULIN REGULAR, HUMAN 100 UNIT/1 ML 3ML VIAL ONE (08:12)
[2018-12-13 08:25] VITALS: BP 163/95
== END 2018-12-13 08:35 | disposition other institution (70) ==
LOC: FSED 06:33
DX: R10.33 Periumbilical pain (principal); R10.84 Generalized abdominal pain; R11.2 Nausea with vomiting, unspecified
CPT/HCPCS: 80053; 81003; 85025; 93005; 99284; J1817; J2270; J2765; J3490; J7030

== ENCOUNTER 2019-07-06 11:09 | Emergency (ER) | payer MEDICARE ==
[~2019-07-06] VITALS: Ht 185.4 cm; Wt 83.9 kg
--- OUTSIDE RECORDS SUMMARY | 2019-07-06 11:15 | XMS REPORT | Summary of Care ---
Author Author [facility] - Health Organization [facility] - Health Address Unknown Phone Unavailable Care Team Providers Care Engineering Design Supervisor Name Role Phone Rod Rosa PCP Reason for Referral * Other (Routine) Referred By Contact Referred To Contact Status Reason Specialty Diagnoses / Procedures Nicholson, Lisa, FOUNDRY WORKER [address] [place] [address] Dinorah Novak MD [address] [place] [address] New Request Diagnoses Nausea and vomiting, intractability of vomiting not specified, unspecified vomiting type P rocedures Discharge Follow-up: Specialty Provider DINORAH NOVAK; 2 Weeks * (Routine) Referred By Contact Referred To Contact Status Reason Specialty Diagnoses / Procedures Nicholson, Lisa, FOUNDRY WORKER [address] [place] [address] Rod Rosa [address] [place] [address] New Request Diagnoses Nausea and vomiting, intractability of vomiting not specified, unspecified vomiting type P rocedures Discharge Follow-up: PCP RDO ROSA; 2 Weeks * MRI/CAT Scan (STAT) Referred By Contact Referred To Contact Status Reason Specialty Diagnoses / Procedures Malka Longoria DO [address] [place] [address] [place] [address] New Request Diagnostic Diagnoses Radiology Epigastric pain P rocedures CT Abdomen/Pelvis W/O Contrast * Radiology Services (STAT) Referred By Contact Referred To Contact Status Reason Specialty Diagnoses / Procedures [facility]alka Longoria, [address] [facility] [address] [place] [address] New Request Diagnostic Diagnoses Radiology Epigastric pain P rocedures Chest 1 View Reason for Visit * Reason Comments Vomiting Blood Abdominal Pain * Auth/Cert Referred By Contact Referred To Contact Status Reason Specialty Diagnoses / Procedures [facility] [address] [place] [address] Emergency Diagnoses Medicine dehydration Encounter Details Care Team Description Date Type Department Malka Longoria, [address] [facility] [address] [place] [address] Sulema Mayes MD [address] [place] [address] Dehydration 05/26/2019 Emergency [facility] Health - Medicine/Surgery [facility] 05/29/2019 [address] [place] [address] Allergies No Known Allergiesdocumented as of this encounter (statuses as of 05/29/2019) Medications End Date Status Medication Sig Dispensed Refills Start Date Active pantoprazole sodium Take 40 mg by 0 (PROTONIX ORAL) mouth. Active LISINOPRIL ORAL Take 10 mg by 0 mouth. Active insulin inject 25 0 glargine,hum.rec.anlog Units under (LANTUS SC) the skin every evening. Active tramadol HCl (TRAMADOL Take 50 mg by 0 ORAL) mouth. Active insulin aspart inject under 0 prot/insuln asp (NOVOLOG the skin. MIX 70-30 SC)Indications: Indications: sliding scale up to 8 sliding scale units per day up to 8 units per day Active NaCl 0.9% (NS) PgBk 50 mL Infuse 1 g. 0 with ertapenem 1 gram SolR 1 g Active metoclopramide HCl Take 10 mg by 0 (REGLAN) 10 mg tablet mouth before meals. Active dicyclomine (BENTYL) 10 Take 10 mg by 0 mg capsule mouth 4 (four) times daily. 06/01/2019 Active sulfamethoxazole-trimetho Take 1 tablet 10 tablet 0 prim 800-160 mg per by mouth 2 0 tabletIndications: Nausea (two) times and vomiting, daily for 5 intractability of days. vomiting not specified, unspecified vomiting type 05/27/2019 Discontinued acetaminophen-codeine Take 1 tablet 12 tablet 0 (TYLENOL-CODEINE #3) by mouth 0 300-30 mg every 4 tabletIndications: (four) hours Vomiting, intractability as needed for of vomiting not Pain (scale specified, presence of 4-6). nausea not specified, unspecified vomiting type documented as of this encounter (statuses as of 05/29/2019) Active Problems Problem Noted Date Dehydration 05/26/2019 documented as of this encounter (statuses as of 05/29/2019) Social History Date Tobacco Use Types Packs/Day Years Used Never Smoker Smokeless Tobacco: Never Used Tobacco Cessation: Counseling Given: Yes Sex Assigned at Date Recorded Not on file Industry Job Start Date Occupation Not on file Not on file Not on file Travel End Travel History Travel Start No recent travel history available. documented as of this encounter Last Filed Vital Signs Reading Time Taken Comments Vital Sign 137/86 05/29/2019 9:17 AM AUTOMATIC TRANSMISSION MECHANIC Blood Pressure 89 05/29/2019 9:17 AM AUTOMATIC TRANSMISSION MECHANIC Pulse 37.1 C (98.8 F) 05/29/2019 4:00 AM AUTOMATIC TRANSMISSION MECHANIC Temperature 18 05/29/2019 4:00 AM AUTOMATIC TRANSMISSION MECHANIC Respiratory Rate 95% 05/29/2019 4:00 AM AUTOMATIC TRANSMISSION MECHANIC Oxygen Saturation - - Inhaled Oxygen Concentration 88 kg (194 lb) 05/26/2019 7:33 AM AUTOMATIC TRANSMISSION MECHANIC Weight 185.4 cm (6' 1") 05/26/2019 7:33 AM AUTOMATIC TRANSMISSION MECHANIC Height 25.6 05/26/2019 7:33 AM AUTOMATIC TRANSMISSION MECHANIC Body Mass Index documented in this encounter Discharge Summaries * Chrissie Benton MD - 05/29/2019 10:55 AM AUTOMATIC TRANSMISSION MECHANIC CLS Team Discharge Summary Date of Service: 05/29/2019 ADMIT DATE: 05/26/2019 DISCHARGE DATE: 05/29/2019 ATTENDING MD: Dr. Chrissie Benton MD PCP: Rod Rosa REASON FOR ADMISSION Vomiting Epigastric pain FINAL DIAGNOSIS: - Intractable abdominal pain and vomiting. - UTI. CT abd suspected cystitis. UA pending, started on rocephin. - Diabetic gastroparesis. - DM II. Sliding scale and long acting schedule. - HTN controlled with current medication. -diabetic neuropathy. - LT foot ulcer, Orders Placed This Encounter CONSULT GASTROENTEROLOGY CONSULT ORTHOPAEDIC SURGERY Discharge Follow-up: PCP ROD ROSA; 2 Weeks No orders of the defined types were placed in this encounter. Temp: [36.4 C (97.5 F)-37.1 C (98.7 F)] Pulse: [72-88] Resp: [18] BP: (134-174)/(81-97) Physical Exam General: alert and oriented x 3 ; no apparent distress HEENT: normocephalic atraumatic, pupils equal, round, reactive to light Neck: supple, no lymphadenopathy, no bruits, no JVD Lungs: clear to auscultation bilaterally, no crackles, no wheezes, cough is stro ng and effective Cardio: regular rate and rhythm, no murmurs, no gallops Abdomen: soft; non tender; non-distended; normoactive bowel sounds Extremities: no clubbing, cyanosis, or edema Skin: no rashes Neuro: cranial nerves grossly intact; sensation grossly intact; muscle strength grossly normal in all four extremities SIGNIFICANT LAB/X-RAYS: Recent Results (from the past 48 hour(s)) POCT GLUCOSE (AUTOMATED) Collection Time: 05/26/19 4:17 PM Result Value Ref Range POCT GLU 265 (H) 70 - 110 mg/dL DRUG SCREEN PANEL 2 URINE Collection Time: 05/26/19 4:23 PM Result Value Ref Range AMPHET Negative Negative SATINDER U Negative Negative BENZO U Negative Negative Cocaine Metabolite Negative Negative METHADONE Negative Negative OPIATES Presumptive Positive (A) Negative PCP Negative Negative THC Presumptive Positive (A) Negative POCT GLUCOSE (AUTOMATED) Collection Time: 05/26/19 9:07 PM Result Value Ref Range POCT GLU 313 (H) 70 - 110 mg/dL BASIC METABOLIC PANEL (NA, K, CL, CO2, GLUCOSE, BUN, CREATININE, CA) Collection Time: 05/27/19 5:03 AM Result Value Ref Range NA 139 135 - 145 mmol/L K 4.0 3.5 - 5.0 mmol/L CL 99 98 - 108 mmol/L CO2 TOTAL 30 23 - 31 mmol/L AGAP 10 2 - 16 BUN 31 (H) 7 - 23 mg/dL GLUCOSE 251 (H) 70 - 110 mg/dL CREATININE 1.29 (H) 0.60 - 1.25 mg/dL CALCIUM 8.9 8.6 - 10.6 mg/dL eGFR Calculation (Non-) 60.8 mL/min/1.73m2 eGFR Calculation () 73.7 mL/min/1.73m2 CBC WITH DIFFERENTIAL Collection Time: 05/27/19 5:03 AM Result Value Ref Range WBC 12.93 (H) 4.20 - 10.70 10*3/L RBC 3.42 (L) 4.26 - 5.52 10*6/L HGB 9.6 (L) 12.2 - 16.4 g/dL HCT 29.5 (L) 38.4 - 49.3 % MCV 86.3 81.7 - 95.6 fL MCH 28.1 26.1 - 32.7 pg MCHC 32.5 31.2 - 35.0 g/dL RDW-SD 45.4 38.5 - 51.6 fL RDW-CV 14.5 12.1 - 15.4 % PLT 279 150 - 328 10*3/L MPV 9.8 9.8 - 13.0 fL NRBC/100 WBC 0.0 0.0 - 10.0 /100 WBCs NRBC x10^3 <0.01 10*3/L GRAN MAT (NEUT) % 81.8 % IMM GRAN % 0.30 % LYMPH % 7.8 % MONO % 9.6 % EOS % 0.1 % BASO % 0.4 % GRAN MAT x10^3(ANC) 10.58 (H) 1.99 - 6.95 10*3/uL IMM GRAN x10^3 0.04 0.00 - 0.06 10*3/uL LYMPH x10^3 1.01 (L) 1.09 - 3.23 10*3/uL MONO x10^3 1.24 (H) 0.36 - 1.02 10*3/uL EOS x10^3 <0.03 (L) 0.06 - 0.53 10*3/uL BASO x10^3 0.05 0.01 - 0.09 10*3/uL POCT GLUCOSE (AUTOMATED) Collection Time: 05/27/19 8:23 AM Result Value Ref Range POCT GLU 280 (H) 70 - 110 mg/dL POCT GLUCOSE (AUTOMATED) Collection Time: 05/27/19 11:21 AM Result Value Ref Range POCT GLU 241 (H) 70 - 110 mg/dL POCT GLUCOSE (AUTOMATED) Collection Time: 05/27/19 3:45 PM Result Value Ref Range POCT GLU 142 (H) 70 - 110 mg/dL POCT GLUCOSE (AUTOMATED) Collection Time: 05/27/19 8:11 PM Result Value Ref Range POCT GLU 268 (H) 70 - 110 mg/dL POCT GLUCOSE (AUTOMATED) Collection Time: 05/28/19 9:29 AM Result Value Ref Range POCT GLU 177 (H) 70 - 110 mg/dL POCT GLUCOSE (AUTOMATED) Collection Time: 05/28/19 12:11 PM Result Value Ref Range POCT GLU 121 (H) 70 - 110 mg/dL No final results containing an impression from the past 48 hours were found. HOSPITAL COURSE: Harshil Lindsay is a 43 year old male with hx of DM, gastroparesis, HTN and neur opathy presented to hospital with vomiting and abdominal pain. Per patient has been vomiting since 05/25 and having abdominal pain. Denies fever or chills. He has mild leukocytosis. CT abdomen shows no bowel obstruction but shows possi ble cystitis. Patient does have hx of Marijuana use. During the hospital course he was started on Rocephin since he was suspected with Cystitis. GI and podiatry was consulted, He has a h/o gastroparesis, GI started him on Reglan 10 mg. Pod iatry was following for his wound, The Wound is very stable and improving. Wound VAC every Thursday 125 mmHg continuously running low intensity b lack foam as per Podiatry and patient is cleared by podiatry. Today he is clinic ally doing better and denies any new complaints. He denies fever or chills. Abdo kerline pain is better today. He is also counseled regarding Marijuana. ITEMS FOR FOLLOW UP PROVIDER: (including pending labs/cultures/studies, anticipa arben problems, etc.) F/u with Podiatry and GI in 2-3 weeks FUNCTIONAL STATUS: fully ambulatory DISCHARGE CONDITION: good COGNITIVE STATUS: cognitively intact DISCHARGE INSTRUCTIONS: Discharge Orders Discharge Follow-up: PCP ROD ROSA; 2 Weeks To PCP: ROD ROSA [[id number]] Patient's Preferred Location: Unknown Discharge Disposition: Home, ([facility]) When (Patients with risk for unplanned readmission score over 16 or those noted as Hospital Dependent should follow up within 7 days with PCP or primary DX spec ialist): 2 Weeks Risk of Unplanned Readmission:( Score greater than 16 indicates high risk) 14 Regular Diet; Texture: Regular. GI soft diet, small meals Order Comments: GI soft diet, small meals Texture Regular. Diabetic: No 1800 Calorie Diabetic Consistent Carbohydrates Diet - includes HS Snack; Texture : Regular. Texture Regular. Diabetic: No Discharge Condition - Discharge Condition: GOOD Discharge Activity Discharge Activity: As Tolerated Discharge Follow-up: Specialty Provider DINORAH NOVAK; 2 Weeks To Provider: DINORAH NOVAK [[id number]] Patient's Preferred Location: Unknown Discharge Disposition: Home, ([facility]HR) When (Patients with risk for unplanned readmission score over 16 or those noted as Hospital Dependent should follow up within 7 days with PCP or primary DX spec ialist): 2 Weeks Risk of Unplanned Readmission:( Score greater than 16 indicates high risk) 14 VTE Propylaxis- Was ordered during hospitalization Discharge Condition - Discharge Condition: GOOD Discharge Activity Discharge Activity: Ambulate VTE Propylaxis- Was ordered during hospitalization Discharge Instructions Order Comments: With your primary physician in 2-3 weeks DISCHARGE MEDICATIONS: Current Discharge Medication List START taking these medications Details sulfamethoxazole-trimethoprim (BACTRIM DS) 1 tablet Take 1 tablet by mouth 2 (tw o) times daily. Qty: 10 tablet, Refills: 0 Start date: 05/27/2019, End date: 06/01/2019 Associated Diagnoses: Nausea and vomiting, intractability of vomiting not speci fied, unspecified vomiting type CONTINUE these medications which have NOT CHANGED Details dicyclomine (BENTYL) 10 mg Take 10 mg by mouth 4 (four) times daily. insulin aspart prot/insuln asp (NOVOLOG MIX 70-30 SC) inject under the skin. In dications: sliding scale up to 8 units per day insulin glargine,hum.rec.anlog (LANTUS SC) 25 Units inject 25 Units under the sk in every evening. LISINOPRIL ORAL 10 mg Take 10 mg by mouth. metoclopramide HCl (REGLAN) 10 mg Take 10 mg by mouth before meals. pantoprazole sodium (PROTONIX ORAL) 40 mg Take 40 mg by mouth. tramadol HCl (TRAMADOL ORAL) 50 mg Take 50 mg by mouth. NaCl 0.9% (NS) PgBk 50 mL with ertapenem 1 gram SolR 1 g 1 g Infuse 1 g. STOP taking these medications acetaminophen-codeine (TYLENOL #3) 1 tablet Comments: Reason for Stopping: WOUND CARE: CODE STATUS: full code OXYGEN (is patient being discharged on oxygen): no PATIENT EDUCATION PROVIDED: DISCHARGE: home self care FOLLOW-UP APPOINTMENT: PLAN FOR READMISSION: No Please call or text [phone] Chrissie Benton MD with any q uestions. Dr. Chrissie Benton MD [phone] MATIC TRANSMISSION MECHANIC documented in this encounter Discharge Instructions * Attachments The following attachments cannot be sent through Care Everywhere.* Sulfamethoxazole; Trimethoprim, SMX-TMP tablets (Togolese) * Dehydration (Togolese) * Stroke, Symptoms (Togolese) * TIA, What Is (Togolese) documented in this encounter Progress Notes * Chrissie Benton MD - 05/28/2019 8:15 PM AUTOMATIC TRANSMISSION MECHANIC CLS Progress Note Date of Service: 05/28/2019 20:15 Chief Complaint: N/v SUBJECTIVE: Still has n/v N CP or Abd pain PHYSICAL EXAM: Vitals: 05/28/19 0325 05/28/19 0800 05/28/19 1200 05/28/19 1600 BP: (!) 141/82 134/83 (!) 157/91 132/79 Pulse: 78 79 72 79 Resp: 18 18 18 18 Temp: 36.9 C (98.5 F) 36.8 C (98.3 F) 36.8 C (98.3 F) 36.8 C (98.2 F) TempSrc: Tympanic Oral Oral Oral SpO2: 99% 98% 96% 97% Weight: Height: O2 Sat: SpO2 readings for the past 24 hrs: SpO2 05/28/19 0000 98 % 05/28/19 0325 99 % 05/28/19 0800 98 % 05/28/19 1200 96 % 05/28/19 1600 97 % Intake/Output Summary (Last 24 hours) at 05/28/20192014 Last data filed at 05/28/2019 0624 Gross per 24 hour Intake 1340 ml Output Net 1340 ml General: alert and oriented; no apparent distress HEENT: pupils equal, round; extraocular movements intact; oropharynx clear; mois t mucous membranes Lungs: clear to auscultation bilaterally, no crackles, no wheezes, cough is stro ng and effective Cardio: regular rate and rhythm, no murmurs, no gallops Abdomen: soft; non-tender; non-distended; normoactive bowel sounds Extremities: no cyanosis, clubbing or edema LABS/IMAGING - reviewed, pertinent results as below: Recent Results (from the past 48 hour(s)) POCT GLUCOSE (AUTOMATED) Collection Time: 05/26/19 9:07 PM Result Value Ref Range POCT GLU 313 (H) 70 - 110 mg/dL BASIC METABOLIC PANEL (NA, K, CL, CO2, GLUCOSE, BUN, CREATININE, CA) Collection Time: 05/27/19 5:03 AM Result Value Ref Range NA 139 135 - 145 mmol/L K 4.0 3.5 - 5.0 mmol/L CL 99 98 - 108 mmol/L CO2 TOTAL 30 23 - 31 mmol/L AGAP 10 2 - 16 BUN 31 (H) 7 - 23 mg/dL GLUCOSE 251 (H) 70 - 110 mg/dL CREATININE 1.29 (H) 0.60 - 1.25 mg/dL CALCIUM 8.9 8.6 - 10.6 mg/dL eGFR Calculation (Non-) 60.8 mL/min/1.73m2 eGFR Calculation () 73.7 mL/min/1.73m2 CBC WITH DIFFERENTIAL Collection Time: 05/27/19 5:03 AM Result Value Ref Range WBC 12.93 (H) 4.20 - 10.70 10*3/L RBC 3.42 (L) 4.26 - 5.52 10*6/L HGB 9.6 (L) 12.2 - 16.4 g/dL HCT 29.5 (L) 38.4 - 49.3 % MCV 86.3 81.7 - 95.6 fL MCH 28.1 26.1 - 32.7 pg MCHC 32.5 31.2 - 35.0 g/dL RDW-SD 45.4 38.5 - 51.6 fL RDW-CV 14.5 12.1 - 15.4 % PLT 279 150 - 328 10*3/L MPV 9.8 9.8 - 13.0 fL NRBC/100 WBC 0.0 0.0 - 10.0 /100 WBCs NRBC x10^3 <0.01 10*3/L GRAN MAT (NEUT) % 81.8 % IMM GRAN % 0.30 % LYMPH % 7.8 % MONO % 9.6 % EOS % 0.1 % BASO % 0.4 % GRAN MAT x10^3(ANC) 10.58 (H) 1.99 - 6.95 10*3/uL IMM GRAN x10^3 0.04 0.00 - 0.06 10*3/uL LYMPH x10^3 1.01 (L) 1.09 - 3.23 10*3/uL MONO x10^3 1.24 (H) 0.36 - 1.02 10*3/uL EOS x10^3 <0.03 (L) 0.06 - 0.53 10*3/uL BASO x10^3 0.05 0.01 - 0.09 10*3/uL POCT GLUCOSE (AUTOMATED) Collection Time: 05/27/19 8:23 AM Result Value Ref Range POCT GLU 280 (H) 70 - 110 mg/dL POCT GLUCOSE (AUTOMATED) Collection Time: 05/27/19 11:21 AM Result Value Ref Range POCT GLU 241 (H) 70 - 110 mg/dL POCT GLUCOSE (AUTOMATED) Collection Time: 05/27/19 3:45 PM Result Value Ref Range POCT GLU 142 (H) 70 - 110 mg/dL POCT GLUCOSE (AUTOMATED) Collection Time: 05/27/19 8:11 PM Result Value Ref Range POCT GLU 268 (H) 70 - 110 mg/dL POCT GLUCOSE (AUTOMATED) Collection Time: 05/28/19 9:29 AM Result Value Ref Range POCT GLU 177 (H) 70 - 110 mg/dL POCT GLUCOSE (AUTOMATED) Collection Time: 05/28/19 12:11 PM Result Value Ref Range POCT GLU 121 (H) 70 - 110 mg/dL POCT GLUCOSE (AUTOMATED) Collection Time: 05/28/19 4:02 PM Result Value Ref Range POCT GLU 142 (H) 70 - 110 mg/dL No final results containing an impression from the past 48 hours were found. CURRENT MEDICATIONS - reviewed. Current Facility-Administered Medications Medication Dose Route Frequency Last Rate Last Dose HYDROcodone-acetaminophen (NORCO 5) 5-325 mg tablet 1 tablet 1 tablet Oral Q6HPRN ondansetron (ZOFRAN (PF)) injection 8 mg 8 mg Slow IV Push Q6HPRN 8 mg at 05/28/19 1804 acetaminophen (TYLENOL) tablet 650 mg 650 mg Oral Q4HPRN cefTRIAXone (ROCEPHIN) 1,000 mg in NaCl 0.9% (NS) 50 mL MINI-BAG 1,000 mg I V Piggyback Q24H ABX 1,000 mg at 05/28/19 1148 dicyclomine (BENTYL) capsule 10 mg 10 mg Oral QID 10 mg at 05/28/19 1753 enoxaparin (LOVENOX) injection 40 mg 40 mg Subcutaneous DAILY 40 mg at 0937 insulin glargine (LANTUS U-100) injection 15 Units 15 Units Subcutaneous QH S 15 Units at 05/27/19 2101 lactated ringers IV infusion 1,000 mL 1,000 mL IV Infusion CONTINUOUS 100 m L/hr at 05/28/19 0624 1,000 mL at 05/28/19 0624 lisinopril (PRINIVIL,ZESTRIL) tablet 10 mg 10 mg Oral DAILY 10 mg at 05/01 12/17 0937 metoclopramide HCl (REGLAN) tablet 10 mg 10 mg Oral AC 10 mg at 05/28/19 175 pantoprazole (PROTONIX) 40 mg in NaCl 0.9% (NS) 100 mL MINI-BAG 40 mg IV Pi ggyback Q12H 40 mg at 05/28/191999 proMETHazine (PHENERGAN) tablet 12.5 mg 12.5 mg Oral Q6HPRN Sliding Scale Insulin - Lispro (HumaLOG) + Fsbg Testing Subcutaneous TID M EALS+HS 1 Units at 05/28/19 175 ASSESSMENT/PLAN Harshil Lindsay is a 43 year old male admitted to the hospital with: Intractable abdominal pain and vomiting. CT abdomen didn't show obstruction. Co uld be due to gastroparesis. He also has hx of marijuana use. Will get UDS. - UTI. CT abd suspected cystitis. UA pending, started on rocephin. - Diabetic gastroparesis. - DM II. Sliding scale and long acting schedule. - HTN controlled with current medication. -diabetic neuropathy. - LT foot ulcer, POA. Has wound vac on. Plan: Wound care Not tolerating po yet reglan UA UDS GI consult Podiatry consult IVF PPI Sliding scale and schedule insulin Home medication reconciliation. Most recent hemoglobin A1c level: NA Advance Care Planning discussed and documented; advance care plan or surrogate d ecision maker documented in the medical record: full code, . Pain Assessment Documented as Negative, No Follow-Up Plan Required Patient treated with a beta-lactam antibiotic as definitive therapy MSSA bactere justyn: NA Patients with Primary Headache Diagnosis and Imaging of the Head was Obtained: Walt Benton MD [phone] MATIC TRANSMISSION MECHANIC * Cande Hendrix RN - 05/26/2019 10:54 AM AUTOMATIC TRANSMISSION MECHANIC Care Management Social Functional Assessment Patient Name: Harshil Lindsay Age: [age] year old Sex: male 2N Previous admit date: N/A Current diagnosis and co-morbidities: dehydration Readmission Questions: Was patient discharged from any acute care hospital within the last 30 days: No Social Functional Assessment: Primary language spoken/preferred: Togolese Mental Status: Alert & Oriented to Person,Place & Time Information given by: Self Patient's support system: Spouse Name and number of support system: Aleisha Neftali [phone] Primary Trumpet Player: Self MPOA: Same as support system Living Arrangement: Home Address of living arrangement : [address] [place] [id number] Persons living in home: Self;Same as support system Barriers to returning home: None Baseline functional status- ambulation: Independent Functional status-baseline personal care: Independent Baseline functional status- driving: Independent Baseline functional status- grocery shopping: Independent Functional status-baseline housekeeping: Independent Functional status-baseline meal prep: Independent Current functional status same as prior: Yes Do you have a PCP?: Yes Name of PCP: Rod Rosa Home Health Care Agency: Yes Name of Home Health Agency: [facility], [address], [place], [place] (Ph) [phone] (F) [phone] Previous or current Home Health Care Agency: Current Provider Services: No DME Company: No Equipment: Other Other equipment: woundvac Hemodialysis: No Community resources utilized: None Funding Resources: Medicare A & B Pharmacy where meds are filled: Other Other pharmacy: [facility] Anticipated services prior to disharge: None Expected mode of discharge transportation: Same as support system Additional info required for discharge planning: No needs identified Recommended discharge plan: Home Any issues or concerns with obtaining/affording your medications at home: no. Are you or your support system able to grain picker medications at discharge: yes. D escribe: no issues. Dr. Null is patient's power cleaner operator and f/u for woundvac wound care. Woundvac janine se comes 3x/week. SFA Complete: Social Functional Assessment complete: Yes Alcohol Use Screening (AUDIT-C) How often do you have a drink containing alcohol?: Never SCORE: 0 Did patient elect to have resources provided: No Actions taken: Provided support Role of Care Management explained. Cande Hendrix FOOT DRILL OPERATOR, CMSRN Valve Mechanic- [facility] Department of Care Management O: [phone] E: [email or web address] MATIC TRANSMISSION MECHANIC documented in this encounter Plan of Treatment Date/Time Name Type Priority Associated Diagnoses 05/26/2019 4:23 PM AUTOMATIC TRANSMISSION MECHANIC URINE DRUG (LCMSMS) - LAB Routine SYNTHETIC OPIATES PANEL 05/26/2019 4:23 PM AUTOMATIC TRANSMISSION MECHANIC URINE DRUG (LCMSMS) - LAB Routine OPIATES PANEL Order Schedule Name Type Priority Associated Diagnoses ONCE for 1 Occurrences starting 05/26/2019 until 05/26/2019, 1 completed URINE DRUG (LCMSMS) - LAB Routine SYNTHETIC OPIATES PANEL ONCE for 1 Occurrences starting 05/26/2019 until 05/26/2019, 1 completed URINE DRUG (LCMSMS) - LAB Routine OPIATES PANEL Health Maintenance Due Date Last Done Comments DTaP,Tdap,and Td Vaccines 11/25/1986 (1 - Tdap) INFLUENZA VACCINE (#1) 2018 PNEUMOCOCCAL 0-64 YEARS Aged Out No longer eligible based COMBINED SERIES on patient's age to complete this topic documented as of this encounter Implants Device Identifier Shelf Expiration Date Model / Serial / Lot Implanted Type Area Manufactur er 07/28/2020 GS-5440 / [id number] / N/A Epifix 4.0x4.0cm Dehydrated Human TISSUE Left: Foot MIMEDX Amnion/Chorion Membrane Allograft Mimedx Ref#[id number] - [id number] Implanted: Qty: 1 on 03/29/2019 by Heavenly Null DPM at [facility] ([facility]) 09/28/2023 [id number] / [id number] / N/A Epifix 4x10 [id number] Left: Foot MIMEDX Implanted: Qty: 1 on 03/29/2019 by Heavenly Null DPM at [facility] ([facility]) documented as of this encounter Procedures Comments Procedure Name Priority Date/Time Associated Diagnosis CBC WITH DIFFERENTIAL Routine 05/29/2019 9:26 AM AUTOMATIC TRANSMISSION MECHANIC GLYCOSYLATED HEMOGLOBIN Routine 05/29/2019 (A1C) 9:26 AM AUTOMATIC TRANSMISSION MECHANIC CBC WITH DIFFERENTIAL Routine 05/29/2019 9:26 AM AUTOMATIC TRANSMISSION MECHANIC BASIC METABOLIC PANEL Routine 05/29/2019 (NA, K, CL, CO2, GLUCOSE, 9:26 AM AUTOMATIC TRANSMISSION MECHANIC BUN, CREATININE, CA) EXTRA TUBE URINE CULTURE Routine 05/29/2019 5:43 AM AUTOMATIC TRANSMISSION MECHANIC URINALYSIS STAT 05/29/2019 Epigastric pain 5:43 AM AUTOMATIC TRANSMISSION MECHANIC POCT GLUCOSE (AUTOMATED) Routine 05/28/2019 8:25 PM AUTOMATIC TRANSMISSION MECHANIC POCT GLUCOSE (AUTOMATED) Routine 05/28/2019 4:02 PM AUTOMATIC TRANSMISSION MECHANIC POCT GLUCOSE (AUTOMATED) Routine 05/28/2019 12:11 PM AUTOMATIC TRANSMISSION MECHANIC POCT GLUCOSE (AUTOMATED) Routine 05/28/2019 9:29 AM AUTOMATIC TRANSMISSION MECHANIC POCT GLUCOSE (AUTOMATED) Routine 05/27/2019 8:11 PM AUTOMATIC TRANSMISSION MECHANIC POCT GLUCOSE (AUTOMATED) Routine 05/27/2019 3:45 PM AUTOMATIC TRANSMISSION MECHANIC POCT GLUCOSE (AUTOMATED) Routine 05/27/2019 11:21 AM AUTOMATIC TRANSMISSION MECHANIC POCT GLUCOSE (AUTOMATED) Routine 05/27/2019 8:23 AM AUTOMATIC TRANSMISSION MECHANIC CBC WITH DIFFERENTIAL Routine 05/27/2019 5:03 AM AUTOMATIC TRANSMISSION MECHANIC CBC WITH DIFFERENTIAL Routine 05/27/2019 5:03 AM AUTOMATIC TRANSMISSION MECHANIC BASIC METABOLIC PANEL Routine 05/27/2019 (NA, K, CL, CO2, GLUCOSE, 5:03 AM AUTOMATIC TRANSMISSION MECHANIC BUN, CREATININE, CA) POCT GLUCOSE (AUTOMATED) Routine 05/26/2019 9:07 PM AUTOMATIC TRANSMISSION MECHANIC GALV/CLC ONLY - URINE Routine 05/26/2019 DRUG (IMMUNOASSAY) - 4:23 PM AUTOMATIC TRANSMISSION MECHANIC COMPREHENSIVE DRUG SCREEN POCT GLUCOSE (AUTOMATED) Routine 05/26/2019 4:17 PM AUTOMATIC TRANSMISSION MECHANIC POCT GLUCOSE (AUTOMATED) Routine 05/26/2019 11:27 AM AUTOMATIC TRANSMISSION MECHANIC EKG-12 LEAD Routine 05/26/2019 9:20 AM AUTOMATIC TRANSMISSION MECHANIC CT ABDOMEN PELVIS WO STAT 05/26/2019 Epigastric pain CONTRAST 8:44 AM AUTOMATIC TRANSMISSION MECHANIC XR CHEST 1 VW STAT 05/26/2019 Epigastric pain 8:32 AM AUTOMATIC TRANSMISSION MECHANIC CBC WITH DIFFERENTIAL STAT 05/26/2019 Epigastric pain 7:58 AM AUTOMATIC TRANSMISSION MECHANIC N-TERMINAL PRO-BNP STAT 05/26/2019 Epigastric pain 7:58 AM AUTOMATIC TRANSMISSION MECHANIC ACTIVATED PARTIAL STAT 05/26/2019 Epigastric pain THRMPLAS DARYN 7:58 AM AUTOMATIC TRANSMISSION MECHANIC PROTHROMBIN TIME / INR STAT 05/26/2019 Epigastric pain 7:58 AM AUTOMATIC TRANSMISSION MECHANIC CBC WITH DIFFERENTIAL Routine 05/26/2019 Epigastric pain 7:58 AM AUTOMATIC TRANSMISSION MECHANIC BASIC METABOLIC PANEL STAT 05/26/2019 Epigastric pain (NA, K, CL, CO2, GLUCOSE, 7:58 AM AUTOMATIC TRANSMISSION MECHANIC BUN, CREATININE, CA) HEPATIC FUNCTION PANEL STAT 05/26/2019 Epigastric pain (05741) (ALB,T.PRO,BILI 7:58 AM AUTOMATIC TRANSMISSION MECHANIC T,BU/BC,ALT,AST,ALK PHOS) TROPONIN I STAT 05/26/2019 Epigastric pain 7:58 AM AUTOMATIC TRANSMISSION MECHANIC LIPASE STAT 05/26/2019 Epigastric pain 7:58 AM AUTOMATIC TRANSMISSION MECHANIC EKG-12 LEAD STAT 05/26/2019 7:43 AM AUTOMATIC TRANSMISSION MECHANIC documented in this encounter Results * CBC WITH DIFFERENTIAL (05/29/2019 9:26 AM AUTOMATIC TRANSMISSION MECHANIC) WBC 7.45 4.20 - 10.70 [facility] 10*3/L [facility] RBC 3.85 (L) 4.26 - 5.52 10*6/L [facility] HGB 10.9 (L) 12.2 - 16.4 g/dL [facility] HCT 33.3 (L) 38.4 - 49.3 % [facility] MCV 86.5 81.7 - 95.6 fL [facility] MCH 28.3 26.1 - 32.7 pg [facility] MCHC 32.7 31.2 - 35.0 g/dL [facility] RDW-SD 43.7 38.5 - 51.6 fL [facility] RDW-CV 13.9 12.1 - 15.4 % [facility] PLT 264 150 - 328 10*3/L [facility] MPV 9.5 (L) 9.8 - 13.0 fL [facility] NRBC/100 WBC 0.0 0.0 - 10.0 /100 WBCs [facility] NRBC x10^3 <0.01 10*3/L [facility] GRAN MAT (NEUT) 59.6 % [facility] % [facility] IMM GRAN % 0.10 % [facility] LYMPH % 28.1 % [facility] MONO % 10.3 % [facility] EOS % 1.1 % [facility] BASO % 0.8 % [facility] GRAN MAT 4.44 1.99 - 6.95 10*3/uL [facility] x10^3(ANC) [facility] IMM GRAN x10^3 <0.03 0.00 - 0.06 10*3/uL [facility] LYMPH x10^3 2.09 1.09 - 3.23 10*3/uL [facility] MONO x10^3 0.77 0.36 - 1.02 10*3/uL [facility] EOS x10^3 0.08 0.06 - 0.53 10*3/uL [facility] BASO x10^3 0.06 0.01 - 0.09 10*3/uL [facility] Specimen Blood - ARM, RIGHT Performing Organization Address [facility] Servicescooh Phone Number [facility] CLIA: [id number], [address] [place] [address] [facility] * GLYCOSYLATED HEMOGLOBIN (A1C) (05/29/2019 9:26 AM AUTOMATIC TRANSMISSION MECHANIC) HGB A1C 9.0 (H) 4.0 - 6.0 % NGSP [facility] Specimen Blood - ARM, RIGHT Performing Organization Address [facility] Servicescode Phone Number [facility] CLIA: [id number], [address] [place] [address] [facility] * BASIC METABOLIC PANEL (NA, K, CL, CO2, GLUCOSE, BUN, CREATININE, CA) (05/29/2019 9:26 AM AUTOMATIC TRANSMISSION MECHANIC) NA 136 135 - 145 mmol/L [facility] K 3.6 3.5 - 5.0 mmol/L [facility] CL 98 98 - 108 mmol/L [facility] CO2 TOTAL 31 23 - 31 mmol/L [facility] AGAP 7 2 - 16 [facility] BUN 15 7 - 23 mg/dL [facility] GLUCOSE 141 (H) 70 - 110 mg/dL [facility] CREATININE 1.03 0.60 - 1.25 mg/dL [facility] CALCIUM 8.5 (L) 8.6 - 10.6 mg/dL [facility] eGFR 78.8 mL/min/1.73m2 [facility] Calculation [facility] eGFR 95.5 mL/min/1.73m2 [facility] Calculation [facility] Specimen Blood - ARM, RIGHT Narrative Performed At Association of Glomerular Filtration Rate (GFR) and Staging of Kidney Disease* [facility] + + + + [facility] | GFR (mL/min/1.73 m2) | With Kidney Damage | Without Kidney Damage CAMPUS + + + + | >90 | Stage one | Normal + + + + | 60-89 | Stage two | Decreased GFR + + + + | 30-59 | Stage three | Stage three + + + + | 15-29 | Stage four | Stage four + + + + | <15 (or dialysis) | Stage five | Stage five + + + + *Each stage assumes the associated GFR level has been in effect for at least three months. Stages 1 to 5, with or without kidney disease, indicate chronic kidney disease. Notes: Determination of stages one and two (with eGFR >59mL/min/1.73 m2) requires estimation of kidney damage for at least three months as defined by structural or functional abnormalities of the kidney, manifested by either: Pathological abnormalities or Markers of kidney damage (including abnormalities in the composition of the blood or urine or abnormalities in imaging tests). Performing Organization Address City/State/Zipcode Phone Number [facility] CLIA: [id number], [address] [place] [address] [facility] * EXTRA TUBE URINE CULTURE (05/29/2019 5:43 AM AUTOMATIC TRANSMISSION MECHANIC) Specimen Urine - URINE, CLEAN CATCH Performing Organization Address City/[facility]/Zipcode Phone Number [facility] CLIA: [id number], [address] [place] [address] [facility] * Urinalysis (05/29/2019 5:43 AM AUTOMATIC TRANSMISSION MECHANIC) APPEARANCE Hazy (A) Clear [facility] COLOR Yellow Yellow [facility] PH 7.0 4.8 - 8.0 [facility] SP GRAVITY 1.024 1.003 - 1.030 [facility] GLU U QUAL Normal Normal [facility] BLOOD Negative Negative [facility] KETONES 5 mg/dL (A) Negative [facility] PROTEIN Negative Negative [facility] UROBILIN Normal Normal [facility] BILIRUBIN Negative Negative [facility] NITRITE Negative Negative [facility] LEUK TYRA Negative Negative [facility] RBC/HPF 6 (H) 0 - 3 HPF [facility] WBC/HPF 5 0 - 5 HPF [facility] BACTERIA Negative Negative [facility] MUCOUS Slight (A) Negative LPF [facility] AMORPHOUS Rare Rare HPF [facility] SQ EPITH <1 <=2 HPF [facility] Specimen Urine - URINE, CLEAN CATCH Performing Organization Address City/[facility]/Zipcode Phone Number [facility] CLIA: [id number], [address] [place], [place] [address] [facility] * POCT GLUCOSE (AUTOMATED) (05/28/2019 8:25 PM AUTOMATIC TRANSMISSION MECHANIC) POCT GLU 241 (H) 70 - 110 mg/dL [facility] Specimen Blood Performing Organization Address City/[facility]/Zipcode Phone Number [facility] CLIA: [id number], [address] [place], [place] [id number] * POCT GLUCOSE (AUTOMATED) (05/28/2019 4:02 PM AUTOMATIC TRANSMISSION MECHANIC) POCT GLU 142 (H) 70 - 110 mg/dL [facility] Specimen Blood Performing Organization Address City/[facility] Servicescode Phone Number [facility] CLIA: [id number], [address] [place] [address] St * POCT GLUCOSE (AUTOMATED) (05/28/2019 12:11 PM AUTOMATIC TRANSMISSION MECHANIC) POCT GLU 121 (H) 70 - 110 mg/dL [facility] Specimen Blood Performing Organization Address [facility] Servicescooh Phone Number [facility] CLIA: [id number], [address] [place] [address] St * POCT GLUCOSE (AUTOMATED) (05/28/2019 9:29 AM AUTOMATIC TRANSMISSION MECHANIC) POCT GLU 177 (H) 70 - 110 mg/dL [facility] Specimen Blood Performing Organization Address City/[facility] Servicescode Phone Number [facility] CLIA: [id number], [address] [place] [address] St * POCT GLUCOSE (AUTOMATED) (05/27/2019 8:11 PM AUTOMATIC TRANSMISSION MECHANIC) POCT GLU 268 (H) 70 - 110 mg/dL [facility] Specimen Blood Performing Organization Address City/[facility] Servicescooh Phone Number [facility] CLIA: [id number], [address] [place] [address] St * POCT GLUCOSE (AUTOMATED) (05/27/2019 3:45 PM AUTOMATIC TRANSMISSION MECHANIC) POCT GLU 142 (H) 70 - 110 mg/dL [facility] Specimen Blood Performing Organization Address [facility] Servicescode Phone Number [facility] CLIA: [id number], [address] [place] [address] St * POCT GLUCOSE (AUTOMATED) (05/27/2019 11:21 AM AUTOMATIC TRANSMISSION MECHANIC) POCT GLU 241 (H) 70 - 110 mg/dL [facility] Specimen Blood Performing Organization Address City/State/Zipcode Phone Number [facility] CLIA: [id number], [address] [place] [address] St * POCT GLUCOSE (AUTOMATED) (05/27/2019 8:23 AM AUTOMATIC TRANSMISSION MECHANIC) POCT GLU 280 (H) 70 - 110 mg/dL [facility] Specimen Blood Performing Organization Address City/State/Zipcode Phone Number [facility] CLIA: [id number], [address] [place] [address] St * CBC WITH DIFFERENTIAL (05/27/2019 5:03 AM AUTOMATIC TRANSMISSION MECHANIC) WBC 12.93 (H) 4.20 - 10.70 [facility] 10*3/L [facility] RBC 3.42 (L) 4.26 - 5.52 10*6/L [facility] HGB 9.6 (L) 12.2 - 16.4 g/dL [facility] HCT 29.5 (L) 38.4 - 49.3 % [facility] MCV 86.3 81.7 - 95.6 fL [facility] MCH 28.1 26.1 - 32.7 pg [facility] MCHC 32.5 31.2 - 35.0 g/dL [facility] RDW-SD 45.4 38.5 - 51.6 fL [facility] RDW-CV 14.5 12.1 - 15.4 % [facility] PLT 279 150 - 328 10*3/L [facility] MPV 9.8 9.8 - 13.0 fL [facility] NRBC/100 WBC 0.0 0.0 - 10.0 /100 WBCs [facility] NRBC x10^3 <0.01 10*3/L [facility] GRAN MAT (NEUT) 81.8 % [facility] % [facility] IMM GRAN % 0.30 % [facility] LYMPH % 7.8 % [facility] MONO % 9.6 % [facility] EOS % 0.1 % [facility] BASO % 0.4 % [facility] GRAN MAT 10.58 (H) 1.99 - 6.95 10*3/uL [facility] x10^3(ANC) [facility] IMM GRAN x10^3 0.04 0.00 - 0.06 10*3/uL [facility] LYMPH x10^3 1.01 (L) 1.09 - 3.23 10*3/uL [facility] MONO x10^3 1.24 (H) 0.36 - 1.02 10*3/uL [facility] EOS x10^3 <0.03 (L) 0.06 - 0.53 10*3/uL [facility] BASO x10^3 0.05 0.01 - 0.09 10*3/uL [facility] Specimen Blood - ARM, RIGHT Performing Organization Address City/State/Zipcode Phone Number [facility] CLIA: [id number], [address] [place], [place] [address] [facility] * BASIC METABOLIC PANEL (NA, K, CL, CO2, GLUCOSE, BUN, CREATININE, CA) (05/27/2019 5:03 AM AUTOMATIC TRANSMISSION MECHANIC) NA 139 135 - 145 mmol/L [facility] K 4.0 3.5 - 5.0 mmol/L [facility] CL 99 98 - 108 mmol/L [facility] CO2 TOTAL 30 23 - 31 mmol/L [facility] AGAP 10 2 - 16 [facility] BUN 31 (H) 7 - 23 mg/dL [facility] GLUCOSE 251 (H) 70 - 110 mg/dL [facility] CREATININE 1.29 (H) 0.60 - 1.25 mg/dL [facility] CALCIUM 8.9 8.6 - 10.6 mg/dL [facility] eGFR 60.8 mL/min/1.73m2 [facility] Calculation SERVICES[facility] (Non[facility]) eGFR 73.7 mL/min/1.73m2 [facility] Calculation [facility] ([facility]) Specimen Blood - ARM, RIGHT Narrative Performed At Association of Glomerular Filtration Rate (GFR) and Staging of Kidney Disease* [facility] + + + + SERVICES- [facility] | GFR (mL/min/1.73 m2) | With Kidney Damage | Without Kidney Damage CAMPUS + + + + | >90 | Stage one | Normal + + + + | 60-89 | Stage two | Decreased GFR + + + + | 30-59 | Stage three | Stage three + + + + | 15-29 | Stage four | Stage four + + + + | <15 (or dialysis) | Stage five | Stage five + + + + *Each stage assumes the associated GFR level has been in effect for at least three months. Stages 1 to 5, with or without kidney disease, indicate chronic kidney disease. Notes: Determination of stages one and two (with eGFR >59mL/min/1.73 m2) requires estimation of kidney damage for at least three months as defined by structural or functional abnormalities of the kidney, manifested by either: Pathological abnormalities or Markers of kidney damage (including abnormalities in the composition of the blood or urine or abnormalities in imaging tests). Performing Organization Address City/[facility]/Zipcode Phone Number [facility] CLIA: [id number], [address] [place], [place] [id number] [facility] * POCT GLUCOSE (AUTOMATED) (05/26/2019 9:07 PM AUTOMATIC TRANSMISSION MECHANIC) [facility] POCT GLU 313 (H) 70 - 110 mg/dL [facility] Specimen Blood Performing Organization Address [facility]/Zipcode Phone Number [facility] CLIA: [id number], [address] [place] [address] * DRUG SCREEN PANEL 2 URINE (05/26/2019 4:23 PM AUTOMATIC TRANSMISSION MECHANIC) Pathologist [facility] AMPHET Negative Negative [facility] SATINDER U Negative Negative [facility] BENZO U Negative Negative [facility] Cocaine Negative Negative [facility] Metabolite [facility] METHADONE Negative Negative [facility] OPIATES Presumptive Positive (A) Negative [facility] PCP Negative Negative [facility] THC Presumptive Positive (A) Negative [facility] Specimen Urine - URINE, CLEAN CATCH Narrative Performed At Urine Drug Cutoff Ranges [facility] Cocaine: 150 ng/mL [facility] Benzodiazepines: 200 ng/mL LOMETA Methadone: 300 ng/mL Amphetamine: 1,000 ng/mL Opiates: 300 ng/mL Cannabinoids: 50 ng/mL Phencyclidine: 25 ng/mL Barbiturates: 200 ng/mL The results are to be used only for medical (i.e., treatment) purposes. Unconfirmed screening results must not be used for non-medical purposes (e.g., employment testing, legal testing). Performing Organization Address City/[facility] Services[facility] Phone Number [facility] CLIA: [id number], [address] [place] [address] [facility] * POCT GLUCOSE (AUTOMATED) (05/26/2019 4:17 PM AUTOMATIC TRANSMISSION MECHANIC) POCT GLU 265 (H) 70 - 110 mg/dL [facility] Specimen Blood Performing Organization Address [facility] Services[facility] Phone Number [facility] CLIA: [id number], [address] [place] [address] St * POCT GLUCOSE (AUTOMATED) (05/26/2019 11:27 AM AUTOMATIC TRANSMISSION MECHANIC) POCT GLU 320 (H) 70 - 110 mg/dL [facility] Specimen Blood Performing Organization Address [facility] Servicescooh Phone Number [facility] CLIA: [id number], [address] [place] [address] St * CT Abdomen/Pelvis W/O Contrast (05/26/2019 8:44 AM AUTOMATIC TRANSMISSION MECHANIC) Specimen Impressions Performed At 1. No evidence of bowel obstruction. PACS/VR/DOSE 2. Circumferential thickening of the urinary bladder wall out of proportion to degree of distention. Consider cystitis or UTI. Correlate with UA. 3. Diffuse hepatic steatosis. 4. Small hiatal hernia with fluid-filled distal esophagus. 5. Nonspecific long segment circumferential rectal wall thickening may be related to suboptimally distended state. Correlate with physical exam. Narrative Performed At CT abdomen and pelvis without contrast PACS/VR/DOSE REASON FOR STUDY: Nausea, vomiting Bowel obstruction, high-grade COMPARISON: None available. TECHNIQUE: Unenhanced multidetector axial CT images from lung bases through pelvic inlet. As requested, no IV contrast was used. Coronal and sagittal MPR images also generated. INTRAVENOUS CONTRAST ADMINISTRATION: None. DOSE REPORT (Total DLP mGy*cm): 452.71. FINDINGS: Lower chest: Clear lung bases. Small hiatal hernia. ABDOMEN AND PELVIS Liver: Diffuse hepatic steatosis. No focal hepatic lesion within bounds of unenhanced technique. Biliary Tract/GB: Cholecystectomy. Spleen: Subcentimeter splenule is seen along the superior margin of the spleen. No splenomegaly. Pancreas: Diffuse pancreatic atrophy. Adrenals: Bilateral adrenal thickening without discrete or measurable nodule. Kidneys: Normal unenhanced appearance of bilateral kidneys. No hydronephrosis or nephrolithiasis.. Bowel: Mild to moderate circumferential rectal wall thickening may be related to underdistention. No pericolonic inflammatory change or stranding. Small bowel appears unremarkable. Appendix is normal. No evidence of mechanical obstruction. Peritoneum: Within normal limits. Vasculature: Limited evaluation without intravenous contrast. Mild atherosclerotic calcifications in the infrarenal abdominal aorta and its branches. Lymph Nodes: Within normal limits. Pelvic Organs: Circumferential urinary bladder wall thickening seems out of proportion to degree of distention. Scattered scrotal calcifications. Abdominal/Pelvic Wall: Within normal limits. BONES: Mild multilevel degenerative changes scattered throughout the axial skeleton, especially within the lower lumbar spine at L4-L5 level. Procedure Note [facility], Radiant Results Inft User - 05/26/2019 9:06 AM AUTOMATIC TRANSMISSION MECHANIC CT abdomen and pelvis without contrast REASON FOR STUDY: Nausea, vomiting Bowel obstruction, high-grade COMPARISON: None available. TECHNIQUE: Unenhanced multidetector axial CT images from lung bases through pelvic inlet. As requested, no IV contrast was used. Coronal and sagittal MPR images also generated. INTRAVENOUS CONTRAST ADMINISTRATION: None. DOSE REPORT (Total DLP mGy*cm): 452.71. FINDINGS: Lower chest: Clear lung bases. Small hiatal hernia. ABDOMEN AND PELVIS Liver: Diffuse hepatic steatosis. No focal hepatic lesion within bounds of unenhanced technique. Biliary Tract/GB: Cholecystectomy. Spleen: Subcentimeter splenule is seen along the superior margin of the spleen. No splenomegaly. Pancreas: Diffuse pancreatic atrophy. Adrenals: Bilateral adrenal thickening without discrete or measurable nodule. Kidneys: Normal unenhanced appearance of bilateral kidneys. No hydronephrosis or nephrolithiasis.. Bowel: Mild to moderate circumferential rectal wall thickening may be related to underdistention. No pericolonic inflammatory change or stranding. Small bowel appears unremarkable. Appendix is normal. No evidence of mechanical obstruction. Peritoneum: Within normal limits. Vasculature: Limited evaluation without intravenous contrast. Mild atherosclerotic calcifications in the infrarenal abdominal aorta and its branches. Lymph Nodes: Within normal limits. Pelvic Organs: Circumferential urinary bladder wall thickening seems out of proportion to degree of distention. Scattered scrotal calcifications. Abdominal/Pelvic Wall: Within normal limits. BONES: Mild multilevel degenerative changes scattered throughout the axial skeleton, especially within the lower lumbar spine at L4-L5 level. IMPRESSION 1. No evidence of bowel obstruction. 2. Circumferential thickening of the urinary bladder wall out of proportion to degree of distention. Consider cystitis or UTI. Correlate with UA. 3. Diffuse hepatic steatosis. 4. Small hiatal hernia with fluid-filled distal esophagus. 5. Nonspecific long segment circumferential rectal wall thickening may be related to suboptimally distended state. Correlate with physical exam. Performing Organization Address City/[facility] Phone Number PACS/VR/DOSE * Chest 1 View (05/26/2019 8:32 AM AUTOMATIC TRANSMISSION MECHANIC) Specimen Impressions Performed At Findings and Impression: Clear lungs. No pleural effusion or pneumothorax. PACS/VR/DOSE Heart size is normal. No acute or aggressive osseous abnormality. Narrative Performed At PORTABLE CHEST RADIOGRAPH PACS/VR/DOSE History: abd pain Comparison: None available. TECHNIQUE: AP view of the chest. Procedure Note [facility], Radiant Results Inft User - 05/26/2019 8:42 AM AUTOMATIC TRANSMISSION MECHANIC PORTABLE CHEST RADIOGRAPH History: abd pain Comparison: None available. TECHNIQUE: AP view of the chest. IMPRESSION Findings and Impression: Clear lungs. No pleural effusion or pneumothorax. Heart size is normal. No acute or aggressive osseous abnormality. Performing Organization Address City/State/[facility] Services[facility] Phone Number PACS/VR/DOSE * CBC WITH DIFFERENTIAL (05/26/2019 7:58 AM AUTOMATIC TRANSMISSION MECHANIC) WBC 12.73 (H) 4.20 - 10.70 [facility] 10*3/L [facility] RBC 3.78 (L) 4.26 - 5.52 10*6/L [facility] [place] HGB 10.4 (L) 12.2 - 16.4 g/dL [facility] HCT 32.7 (L) 38.4 - 49.3 % [facility] MCV 86.5 81.7 - 95.6 fL [facility] MCH 27.5 26.1 - 32.7 pg [facility] [place] MCHC 31.8 31.2 - 35.0 g/dL [facility] RDW-SD 46.5 38.5 - 51.6 fL [facility] RDW-CV 14.5 12.1 - 15.4 % [facility] PLT 313 150 - 328 10*3/L [facility] MPV 10.0 9.8 - 13.0 fL [facility] NRBC/100 WBC 0.0 0.0 - 10.0 /100 WBCs [facility] NRBC x10^3 <0.01 10*3/L [facility] [place] GRAN MAT (NEUT) 87.7 % [facility] IMM GRAN % 0.20 % [facility] [place] LYMPH % 7.1 % [facility] [place] MONO % 4.7 % [facility] [place] EOS % 0.0 % [facility] [place] BASO % 0.3 % [facility] [place] GRAN MAT 11.15 (H) 1.99 - 6.95 10*3/uL [facility] x10^3(ANC) [facility] [place] IMM GRAN x10^3 0.03 0.00 - 0.06 10*3/uL [facility] [place] LYMPH x10^3 0.91 (L) 1.09 - 3.23 10*3/uL [facility] [place] [place] MONO x10^3 0.60 0.36 - 1.02 10*3/uL [facility] [place] EOS x10^3 <0.03 (L) 0.06 - 0.53 10*3/uL [facility] BASO x10^3 0.04 0.01 - 0.09 10*3/uL [facility] Specimen Blood - VENOUS Performing Organization Address City/[facility]/Zipcode Phone Number [facility] CLIA: [id number], [address] [place] [address] [facility] * N-TERMINAL PRO-BNP (05/26/2019 7:58 AM AUTOMATIC TRANSMISSION MECHANIC) NT-proBNP 379 (H) <=125 pg/mL [facility] Specimen Blood - VENOUS Narrative Performed At [facility] has been reported to cause a negative bias, interpret results relative to [facility] patient's use of biotin. [facility] Performing Organization Address [facility] Services[facility] Phone Number [facility] CLIA: [id number], [address] [place] [address] [facility] * Prothrombin Time (PT) / INR (05/26/2019 7:58 AM AUTOMATIC TRANSMISSION MECHANIC) Pathologist [facility] PROTIME PATIENT 12.5 10.1 - 12.6 Seconds [facility] INR 1.1Comment: Normal INR <1.1; [facility] Warfarin Therapeutic range 2.0 [facility] to 3.0 or 2.5 to 3.5, [facility] depending upon the indications. Specimen Blood - VENOUS Performing Organization Address City/[facility] Services[facility] Phone Number [facility] CLIA: [id number], [address] [place] [address] [facility] * aPTT (05/26/2019 7:58 AM AUTOMATIC TRANSMISSION MECHANIC) Pathologist [facility] APTT Patient 29 26 - 36 Seconds [facility] Specimen Blood - VENOUS Performing Organization Address City/[facility]/Zipcode Phone Number [facility] CLIA: [id number], [address] [place] [address] [facility] * Troponin I (05/26/2019 7:58 AM AUTOMATIC TRANSMISSION MECHANIC) Pathologist [facility] TROPONIN I 0.018 <=0.034 ng/mL [facility] Specimen Blood - VENOUS Narrative Performed At Equal or Less than 0.034 ng/ml---Normal [facility] Note: Cardiac troponin begins to rise 3-4 hours after the onset of ischemia. [facility] Repeat in 4-6 hours if the sample was drawn within 3-4 hours of the onset of the LOMETA symptom and found normal. Between 0.035 and 0.120 ng/mL--- Borderline. Questionable myocardial injury or necrosis Note: Serial measurement may be necessary to confirm or exclude the diagnosis of myocardial injury or necrosis; Clinical correlation (symptoms, EKGs, imaging studies, and others) required; Repeat in 4-6 hours if clinically indicated. Equal or Higher than 0.121 ng/mL---Abnormal. Myocardial Injury or Necrosis Likely Biotin has been reported to cause a negative bias, interpret results relative to patient's use of biotin. Performing Organization Address City/[facility]/Zipcode Phone Number [facility] CLIA: [id number], [address] [place] [address] [facility] * Lipase Serum (05/26/2019 7:58 AM AUTOMATIC TRANSMISSION MECHANIC) [facility] LIPASE <10 0 - 220 U/L [facility] Specimen Blood - VENOUS Performing Organization Address City/[facility] Servicescode Phone Number [facility] CLIA: [id number], [address] [place], [place] [address] [facility] * Hepatic Function Panel (ALB, T.PRO, BILI T, BU/BC, ALT, AST, ALK PHOS) (05/26/2019 7:58 AM AUTOMATIC TRANSMISSION MECHANIC) [facility] TOTAL BILI 0.7 0.1 - 1.1 mg/dL [facility] BILI UNCON 0.5 0.1 - 1.1 mg/dL [facility] BILI CONJ 0.0 0.0 - 0.3 mg/dL [facility] T PROTEIN 8.4 (H) 6.3 - 8.2 g/dL [facility] ALBUMIN 4.8 3.5 - 5.0 g/dL [facility] ALK PHOS 179 (H) 34 - 122 U/L [facility] ALTv 23 5 - 50 U/L [facility] AST(SGOT) 37 13 - 40 U/L [facility] Specimen Blood - VENOUS Performing Organization Address City/State/Zipcode Phone Number [facility] CLIA: [id number], [address] [place], [place] [id number] [facility] * Basic Metabolic Panel (NA, K, CL, CO2, GLUCOSE, BUN, CREATININE, CA) (05/26/2019 7:58 AM AUTOMATIC TRANSMISSION MECHANIC) NA 143 135 - 145 mmol/L [facility] K 4.5 3.5 - 5.0 mmol/L [facility] CL 98 98 - 108 mmol/L [facility] CO2 TOTAL 29 23 - 31 mmol/L [facility] AGAP 16 2 - 16 [facility] BUN 31 (H) 7 - 23 mg/dL [facility] GLUCOSE 308 (H) 70 - 110 mg/dL [facility] CREATININE 1.64 (H) 0.60 - 1.25 mg/dL [facility] CALCIUM 9.5 8.6 - 10.6 mg/dL [facility] eGFR 46.1 mL/min/1.73m2 [facility] Calculation [facility] eGFR 55.8 mL/min/1.73m2 [facility] Calculation [facility] ([facility]) Specimen Blood - VENOUS Narrative Performed At Association of Glomerular Filtration Rate (GFR) and Staging of Kidney Disease* [facility] + + + + [facility] | GFR (mL/min/1.73 m2) | With Kidney Damage | Without Kidney Damage CAMPUS + + + + | >90 | Stage one | Normal + + + + | 60-89 | Stage two | Decreased GFR + + + + | 30-59 | Stage three | Stage three + + + + | 15-29 | Stage four | Stage four + + + + | <15 (or dialysis) | Stage five | Stage five + + + + *Each stage assumes the associated GFR level has been in effect for at least three months. Stages 1 to 5, with or without kidney disease, indicate chronic kidney disease. Notes: Determination of stages one and two (with eGFR >59mL/min/1.73 m2) requires estimation of kidney damage for at least three months as defined by structural or functional abnormalities of the kidney, manifested by either: Pathological abnormalities or Markers of kidney damage (including abnormalities in the composition of the blood or urine or abnormalities in imaging tests). Performing Organization Address City/State/Zipcode Phone Number [facility] CLIA: [id number], [address] [place] [address] [facility] documented in this encounter Visit Diagnoses Diagnosis Epigastric pain - Primary Abdominal pain, epigastric Nausea and vomiting, intractability of vomiting not specified, unspecified vomiting type Dehydration documented in this encounter Administered Medications Action Date Dose Rate Site Medication Order MAR Action 05/28/2019 11:48 AM AUTOMATIC TRANSMISSION MECHANIC 1,000 mg cefTRIAXone (ROCEPHIN) 1,000 mg in NaCl Given 0.9% (NS) 50 mL MINI-BAG 1,000 mg, IV Piggyback, Q24H ABX, First dose on Thu05/26/19 at 1145, Until Discontinued, 50 mL, Reason for Anti-Infective: Documented Infection, Documented Infection Site: Urine, Duration of Therapy: 7 days 1,000 mg Given 05/27/2019 9:52 AM AUTOMATIC TRANSMISSION MECHANIC 1,000 mg Given 05/26/2019 11:43 AM AUTOMATIC TRANSMISSION MECHANIC 05/29/2019 9:13 AM AUTOMATIC TRANSMISSION MECHANIC 10 mg dicyclomine (BENTYL) capsule 10 mg Given 10 mg, Oral, QID, First dose on Thu05/26/19 at 1200, Until Discontinued, Routine 10 mg Given 05/28/2019 5:53 PM AUTOMATIC TRANSMISSION MECHANIC 10 mg Given 05/28/2019 11:43 AM AUTOMATIC TRANSMISSION MECHANIC 05/29/2019 9:14 AM AUTOMATIC TRANSMISSION MECHANIC 40 mg Abdomen-SC enoxaparin (LOVENOX) injection 40 mg Given 40 mg, Subcutaneous, DAILY, First dose on Thu05/27/19 at 0900, Until Discontinued, Routine 40 mg Abdomen-SC Given 05/28/2019 9:37 AM AUTOMATIC TRANSMISSION MECHANIC 40 mg Abdomen-SC Given 05/27/2019 9:28 AM AUTOMATIC TRANSMISSION MECHANIC 05/28/2019 9:10 PM AUTOMATIC TRANSMISSION MECHANIC 15 Units Abdomen-SC insulin glargine (LANTUS U-100) Given injection 15 Units 15 Units, Subcutaneous, QHS, First dose on Thu05/26/19 at 2100, Until Discontinued, Routine 15 Units Abdomen-SC Given 05/27/2019 9:01 PM AUTOMATIC TRANSMISSION MECHANIC 15 Units Left Upper Arm-SC Given 05/26/2019 10:00 PM AUTOMATIC TRANSMISSION MECHANIC 05/28/2019 11:51 PM AUTOMATIC TRANSMISSION MECHANIC 1,000 mL 100 mL/hr lactated ringers IV infusion 1,000 mL New Bag at 100 mL/hr, 1,000 mL, IV Infusion, CONTINUOUS, Starting Thu05/26/19 at 1415, Until Discontinued, Routine 1,000 mL 100 mL/hr New Bag 05/28/2019 6:24 AM AUTOMATIC TRANSMISSION MECHANIC 1,000 mL 100 mL/hr New Bag 05/27/2019 7:47 PM AUTOMATIC TRANSMISSION MECHANIC 05/29/2019 9:14 AM AUTOMATIC TRANSMISSION MECHANIC 10 mg lisinopril (PRINIVIL,ZESTRIL) tablet 10 Given mg 10 mg, Oral, DAILY, First dose on Thu05/27/19 at 0900, Until Discontinued 10 mg Given 05/28/2019 9:37 AM AUTOMATIC TRANSMISSION MECHANIC 10 mg Given 05/27/2019 9:55 AM AUTOMATIC TRANSMISSION MECHANIC 05/29/2019 9:14 AM AUTOMATIC TRANSMISSION MECHANIC 10 mg metoclopramide HCl (REGLAN) tablet 10 mg Given 10 mg, Oral, AC, First dose on Thu05/26/19 at 1130, Until Discontinued, Routine 10 mg Given 05/28/2019 5:53 PM AUTOMATIC TRANSMISSION MECHANIC 10 mg Given 05/28/2019 11:44 AM AUTOMATIC TRANSMISSION MECHANIC 05/29/2019 9:32 AM AUTOMATIC TRANSMISSION MECHANIC 8 mg ondansetron (ZOFRAN (PF)) injection 8 mg Given 8 mg, Slow IV Push, Q6HPRN, Starting Thu05/27/19 at 1406, Until Discontinued, Routine, Nausea and Vomiting (N/V) 8 mg Given 05/28/2019 6:04 PM AUTOMATIC TRANSMISSION MECHANIC 8 mg Given 05/28/2019 11:39 AM AUTOMATIC TRANSMISSION MECHANIC 05/29/2019 9:14 AM AUTOMATIC TRANSMISSION MECHANIC 40 mg pantoprazole (PROTONIX) 40 mg in NaCl Given 0.9% (NS) 100 mL MINI-BAG 40 mg, IV Piggyback, Q12H, First dose on Thu05/26/19 at 2000, Until Discontinued, 100 mL 40 mg Given 05/28/2019 8:00 PM AUTOMATIC TRANSMISSION MECHANIC 40 mg Given 05/28/2019 9:41 AM AUTOMATIC TRANSMISSION MECHANIC 05/28/2019 5:56 PM AUTOMATIC TRANSMISSION MECHANIC 1 Units Abdomen-SC Sliding Scale Insulin - Lispro (HumaLOG) Given + Fsbg Testing Subcutaneous, TID MEALS+HS, First dose on Julia 05/26/19 at 1700, Until Discontinued, Routine 2 Units Abdomen-SC Given 05/28/2019 9:39 AM AUTOMATIC TRANSMISSION MECHANIC 6 Units Right Arm Given 05/27/2019 1:41 PM AUTOMATIC TRANSMISSION MECHANIC Action Date Dose Rate Site Medication Order MAR Action 05/26/2019 8:29 AM AUTOMATIC TRANSMISSION MECHANIC 25 mcg FENTanyl PF (SUBLIMAZE (PF)) injection Given 25 mcg 25 mcg, Slow IV Push, ONCE, 1 dose, Julia 05/26/19 at 0845, STAT 05/29/2019 4:08 AM AUTOMATIC TRANSMISSION MECHANIC 1 tablet HYDROcodone-acetaminophen (NORCO 5) Given 5-325 mg tablet 1 tablet 1 tablet, Oral, Q6HPRN, Starting Thu05/27/19 at 1930, Until Thu05/29/19 at 0816, Routine, Pain (scale 4-6) 1 tablet Given 05/28/2019 10:21 PM AUTOMATIC TRANSMISSION MECHANIC 05/26/2019 12:31 PM AUTOMATIC TRANSMISSION MECHANIC 5 Units Abdomen-SC insulin regular human (HUMULIN R) Given injection 10 Units 10 Units, Subcutaneous, ONCE, 1 dose, Julia 05/26/19 at 1030, Routine 05/27/2019 9:17 AM AUTOMATIC TRANSMISSION MECHANIC 4 mg morpHINE injection 4 mg Given 4 mg, Slow IV Push, Q4HPRN, Starting Julia 05/26/19 at 1034, Until Thu05/27/19 at 1033, Routine, Pain (scale 7-10) 4 mg Given 05/27/2019 5:12 AM AUTOMATIC TRANSMISSION MECHANIC 4 mg Given 05/27/2019 1:22 AM AUTOMATIC TRANSMISSION MECHANIC 05/28/2019 11:39 AM AUTOMATIC TRANSMISSION MECHANIC 4 mg morpHINE injection 4 mg Given 4 mg, Slow IV Push, Q4HPRN, Starting 05/27/19 at 1930, Until 05/28/19 at 1929, Routine, Pain (scale 7-10) 4 mg Given 05/28/2019 4:37 AM AUTOMATIC TRANSMISSION MECHANIC 4 mg Given 05/28/2019 12:36 AM AUTOMATIC TRANSMISSION MECHANIC 05/27/2019 1:49 PM AUTOMATIC TRANSMISSION MECHANIC 4 mg ondansetron (ZOFRAN (PF)) injection 4 mg Given 4 mg, Slow IV Push, Q6HPRN, Starting Julia 05/26/19 at 1307, Until 05/27/19 at 1406, Routine, Nausea and Vomiting (N/V) 4 mg Given 05/27/2019 9:17 AM AUTOMATIC TRANSMISSION MECHANIC 4 mg Given 05/27/2019 1:27 AM AUTOMATIC TRANSMISSION MECHANIC 05/26/2019 8:29 AM AUTOMATIC TRANSMISSION MECHANIC 25 mg Right Dorsogluteal-IM proMETHazine (PHENERGAN) injection 25 mg Given 25 mg, Intramuscular, ONCE, 1 dose, Julia 05/26/19 at 0845, [facility] documented in this encounter Insurance Type Payer Benefit Subscriber ID Effective Phone Address Plan / Dates Group Medicare MEDICARE MEDICARE xxxxxxxxxxx 2016-P [phone] resent [id number] [place] [address] documented as of this encounter
--- OUTSIDE RECORDS SUMMARY | 2019-07-06 11:15 | XMS REPORT | Summary of Care ---
Author Author [facility] - Health Organization [facility] - Health Address Unknown Phone Unavailable Care Team Providers Care Mechanical Ordnance Assembler Name Role Phone DeejayMinesh sanchezDylan PCP Reason for Visit * Reason Comments Transition Of Care Encounter Details Care Team Description Date Type Department Zaina Forman RN [address] [place] [id number] Transition Of Care 05/31/[address] [facility] Allergies No Known Allergiesdocumented as of this encounter (statuses as of 06/01/2019) Medications End Date Status Medication Sig Dispensed [...] days. vomiting not specified, unspecified vomiting type documented as of this encounter (statuses as of 06/01/2019) Active Problems Problem Noted Date Dehydration 05/26/2019 documented as of this encounter (statuses as of 06/01/2019) Social History Date Tobacco Use Types Packs/Day Years Used Never Smoker Smokeless Tobacco: Never Used Sex Assigned at Date Recorded Not on file Industry Job Start Date Occupation Not on file Not on file Not on file Travel End Travel History Travel Start No recent travel history available. documented as of this encounter Last Filed Vital Signs Not on filedocumented in this encounter Plan of Treatment Health Maintenance Due Date Last Done Comments DTaP,Tdap,and Td Vaccines 11/25/1986 (1 - Tdap) INFLUENZA VACCINE (#1) 2018 PNEUMOCOCCAL 0-64 YEARS Aged Out No longer eligible based COMBINED SERIES on patient's age to complete this topic documented as of this encounter Implants Device Identifier Shelf Expiration Date Model / Serial / Lot Implanted Type Area Manufactur er 07/28/2020 GS-5440 / [id number] / N/A Epifix 4.0x4.0cm Dehydrated Human TISSUE Left: Foot MIMEDX Amnion/Chorion Membrane Allograft Mimedx Ref#[id number] - [id number] Implanted: Qty: 1 on 03/29/2019 by Heavenly Null DPM at [facility] ([facility]) 09/28/2023 [id number]-5410 / [id number] / N/A Epifix 4x10 [id number] Left: Foot MIMEDX Implanted: Qty: 1 on 03/29/2019 by Heavenly Null DPM at [facility] ([facility]) documented as of this encounter Results Not on filedocumented in this encounter Insurance Type Payer Benefit Subscriber ID Effective Phone Address Plan / Dates Group Medicare MEDICARE MEDICARE xxxxxxxxxxx 2016-P [phone] resent [id number] [place] [address] documented as of this encounter
--- OUTSIDE RECORDS SUMMARY | 2019-07-06 11:15 | XMS REPORT | Summary of Care ---
Author Author [facility] - Health Organization [facility] - Health Address Unknown Phone Unavailable Care Team Providers Care Sustainability Consultant Name Role Phone DeejayMinesh sanchezDylan PCP Reason for Visit * Reason Comments Transition Of Care Encounter Details Care Team Description Date Type Department Zaina Forman RN [address] [place] [address] Transition Of Care 05/31/2019 Transition of [facility] Allergies No Known Allergiesdocumented as of this encounter (statuses as of 05/31/2019) Medications End Date Status Medication Sig Dispensed [...] as of this encounter (statuses as of 05/31/2019) Active Problems Problem Noted Date Dehydration 05/26/2019 documented as of this encounter (statuses as of 05/31/2019) Social History Date Tobacco Use Types Packs/Day [...] Type Area Manufactur er 07/28/2020 GS-5440 / [id number] / N/A Epifix 4.0x4.0cm Dehydrated Human TISSUE Left: Foot MIMEDX Amnion/Chorion Membrane Allograft Mim[employer] Ref#[id number] - [id number] Implanted: Qty: 1 on 03/29/2019 by Heavenly Null DPM at [facility] ([facility]) 09/28/2023 [id number] / [id number] / N/A Epifix 4x10 [id number] Left: Foot MIMEDX Implanted: Qty: 1 on 03/29/2019 by Heavenly Null DPM at [facility] ([facility]) documented as of this encounter Results Not on filedocumented in this encounter Insurance Type Payer Benefit Subscriber ID Effective Phone Address Plan / Dates Group Medicare MEDICARE MEDICARE xxxxxxxxxxx 2016-P [phone] [address] resent [id number] [place] [id number] documented as of this encounter
[2019-07-06] MEDS ORDERED: SODIUM CHLORIDE 0.9% 1000ML 1,000 ML IV STA (11:30)
[2019-07-06] MEDS ORDERED: MORPHINE SULFATE 5 MG/ML VIAL IV ONE (11:30)
[2019-07-06] MEDS ORDERED: PROMETHAZINE 12.5MG/ NACL 0.9% 12.5 MG/50 ML BAG IV ONE (11:30)
[2019-07-06] MEDS ORDERED: PROMETHAZINE HCL (IM) 25 MG/ML VIAL ONE (11:43)
[2019-07-06] MEDS ORDERED: SODIUM CHLORIDE 0.9% 1000ML 1,000 ML ONE (11:44)
[2019-07-06] MEDS ORDERED: MORPHINE SULFATE INJ 4 MG/ML INJ 1ML ONE (11:44)
[2019-07-06] MEDS ORDERED: MORPHINE SULFATE INJ 4 MG/ML INJ 1ML IV ONE (12:15)
[2019-07-06] MEDS ORDERED: PROMETHAZINE HC25 M1 PO (13:42)
[2019-07-06 13:52] VITALS: BP 150/79
== END 2019-07-06 14:11 | disposition home or self-care (01) ==
LOC: FSED 11:09
DX: R10.13 Epigastric pain (principal); R11.2 Nausea with vomiting, unspecified
CPT/HCPCS: 80053; 80076; 85025; 99283; J2270; J2550; J7030

== ENCOUNTER 2019-07-09 14:17 | Observation (INO) | payer MEDICARE ==
[~2019-07-09] VITALS: Ht 185.4 cm; Wt 83.9 kg
[~2019-07-09 14:17] MED LIST changes: +PROMETHAZINE HC25 M1 PO
[2019-07-09] MEDS ORDERED: SODIUM CHLORIDE 0.9% 1000ML 1,000 ML IV STA (14:46)
[2019-07-09] MEDS ORDERED: PROMETHAZINE 25MG/ NS 50ML (IV) IV ONE (15:00)
[2019-07-09] MEDS ORDERED: FAMOTIDINE 20 MG/2 ML VIAL IV ONE ×2 (15:00→15:41)
[2019-07-09] MEDS ORDERED: DIPHENHYDRAMINE HCL INJ 50 MG/ML VIAL IV ONE (15:00)
[2019-07-09] MEDS ORDERED: SODIUM CHLORIDE 0.9% 1000ML 1,000 ML ONE (15:40)
[2019-07-09] MEDS ORDERED: PROMETHAZINE HCL (IM) 25 MG/ML VIAL ONE (15:40)
[2019-07-09] MEDS ORDERED: DIPHENHYDRAMINE HCL INJ 50 MG/ML VIAL ONE (15:40)
[2019-07-09] MEDS ORDERED: MORPHINE SULFATE INJ 4 MG/ML INJ 1ML ONE (15:54)
[2019-07-09] MEDS ORDERED: ACETAMINOPHEN 325 MG TAB PO PRN ×2 (16:00→18:30)
[2019-07-09] MEDS ORDERED: ENALAPRILAT IV INJ 1.25 MG/ML VIAL IV PRN (16:00)
[2019-07-09] MEDS ORDERED: DIPHENHYDRAMINE HCL INJ 50 MG/ML VIAL IV PRN (16:00)
[2019-07-09] MEDS ORDERED: KETOROLAC TROMETHAMINE 30 MG/ML VIAL IV PRN (16:00)
[2019-07-09] MEDS ORDERED: ZOLPIDEM TARTRATE 5 MG TAB PO PRN (16:00)
[2019-07-09] MEDS ORDERED: PROMETHAZINE 25MG/ NS 50ML (IV) IV PRN (16:00)
--- NOTE | 2019-07-09 16:00 | NUR ---
no vomiting noted at this time, pt resting and states his pain is much better
[2019-07-09] MEDS ORDERED: MORPHINE SULFATE 2 MG/ML SYR 1ML IV PRN (16:15)
[2019-07-09] MEDS ORDERED: HYDROCODONE/APAP 7.5MG-325MG 1 EA TAB PO PRN (16:15)
[2019-07-09] MEDS: INSULIN REGULAR, HUMAN 100 UNIT/1 ML 3ML VIAL SQ SCH ×2 (16:30→21:00)
[2019-07-09] MEDS ORDERED: FAMOTIDINE 20 MG/2 ML VIAL IV SCH (17:00)
[2019-07-09] MEDS ORDERED: MORPHINE SULFATE INJ 4 MG/ML INJ 1ML IV ONE (17:00)
--- NOTE | 2019-07-09 17:30 | NUR ---
pt sleeping no vomiting noted,
[2019-07-09 18:30] VITALS: BP 136/79
[2019-07-09] MEDS ORDERED: HYDRALAZINE HCL 20 MG/ML VIAL IV PRN (18:30)
--- NOTE | 2019-07-09 18:31 | NUR ---
PT ARRIVED VIA AMBULANCE FROM ER, AA&OX3, RA, VS WNL AT THIS TIME, SEE EMAR, ORIENTED TO ROOM AND CALL LIGHT SYSTEM, CALL LIGHT WITHIN REACH
[2019-07-09 19:43] VITALS: BP 136/79
[2019-07-09] MEDS: METOCLOPRAMIDE HCL 10 MG/2ML VIAL IV SCH (19:44)
[2019-07-09] MEDS: SODIUM CHLORIDE 0.9% 1000ML 1,000 ML IV SCH ×2 (19:44→22:00)
[2019-07-09 19:54] VITALS: BP 132/79
[2019-07-09 21:00] VITALS: BP 132/79
[2019-07-09] MEDS: MORPHINE SULFATE 2 MG/ML SYR 1ML IV PRN (21:00)
[2019-07-09] MEDS ORDERED: PANTOPRAZOLE 40 MG 10ML VIAL IV STA (21:08)
[2019-07-09] MEDS: PANTOPRAZOL 40MG/SOD CHL 0.9% 50 ML IV SCH (21:50)
[2019-07-10] VITALS: BP 124/77
[2019-07-10] MEDS: METOCLOPRAMIDE HCL 10 MG/2ML VIAL IV SCH ×4 (00:45→18:09)
[2019-07-10] MEDS ORDERED: PROMETHAZINE HC25 M1 PO (02:11)
[2019-07-10] MEDS: MORPHINE SULFATE 2 MG/ML SYR 1ML IV PRN ×3 (03:00→16:00)
[2019-07-10] MEDS: PANTOPRAZOL 40MG/SOD CHL 0.9% 50 ML IV SCH (03:06)
[2019-07-10 04:00] VITALS: BP 128/74
[2019-07-10 06:13] LABS: BASOPHILS # (AUTO) 0.1 (0.0-0.1); BASOPHILS % 0.6 % (0.0-1.0); EOSINOPHILS # (AUTO) 0.1 (0.0-0.4); EOSINOPHILS % 0.6 % (0.0-6.0); HEMATOCRIT 32.4 % (38.2-49.6); HEMOGLOBIN 10.1 g/dL (14.0-18.0); LYMPHOCYTES # (AUTO) 2.2 (1.0-3.2); LYMPHOCYTES % 26.7 % (18.0-39.1); MEAN CORPUSCULAR HEMOGLOBIN 27.6 pg (28-32); MEAN CORPUSCULAR HGB CONC 31.2 g/dL (31-35); MEAN CORPUSCULAR VOLUME 88.5 fL (81-99); MONOCYTES # (AUTO) 0.8 (0.2-0.8); MONOCYTES % 10.3 % (4.4-11.3); NEUTROPHILS % 61.6 % (38.7-80.0); PLATELET COUNT 191 x10e3/uL (140-360); RED BLOOD COUNT 3.66 x10e6/uL (4.3-5.7); RED CELL DISTRIBUTION WIDTH 13.8 % (11.7-14.4)
[2019-07-10 07:05] LABS: ANION GAP 12.3 mmol/L (8-16); CALCIUM 8.1 mg/dL (8.4-10.2); CREATININE, SERUM 1.55 mg/dL (0.72-1.25); POTASSIUM 3.3 mmol/L (3.5-5.1)
[2019-07-10] MEDS: INSULIN REGULAR, HUMAN 100 UNIT/1 ML 3ML VIAL SQ SCH ×3 (07:30→17:30)
[2019-07-10] MEDS: SODIUM CHLORIDE 0.9% 1000ML 1,000 ML IV SCH (07:58)
[2019-07-10 08:32] VITALS: BP 130/81
--- NOTE | 2019-07-10 09:55 | NUR ---
OOB TO BR, BM NOTED, PT BACK TO BED, MEDICATED PER MD ORDER FOR PAIN, EDUCATED TO NOT GET OOB WITHOUT CALLING FOR ASSISTANCE, PT VERBALIZED UNDERSTANDING, JAREK SLASHER RUNNER WITH MD JAVED INTO SEE PT, DISCUSSED POC
[2019-07-10] MEDS ORDERED: POTASSIUM CHLORIDE 20MEQ/100ML 100 ML IV ONE (10:00)
[2019-07-10 10:09] VITALS: BP 130/81
[2019-07-10] MEDS ORDERED: SODIUM CHLORIDE 0.9% 250ML 250 ML ONE (10:22)
[2019-07-10 12:00] VITALS: BP 105/69
--- NOTE | 2019-07-10 14:44 | NUR ---
ORDER RECEIVED TO RESUME HH FOR WOUND CARE. CALL TO PT. PT STATES HE WAS ON SERVICE W [facility] AND WOULD LIKE TO RESUME HIS WOUND CARE W THEM. STATES THE PLAN IS TO DC HOME TOMORROW. WILL FAX REFERRAL TO [facility] [place] OFF: [phone] V/ FAX: [phone]
--- NOTE | 2019-07-10 16:12 | NUR ---
MEDICATED PER MD ORDER FO-11/06 ABDOMINAL PAIN, EDUCATED TO NOT GET OOB WITHOUT CALLING FOR ASSISTANCE, PT VERBALIZED UNDERSTANDING, REMOVED DRESSING FROM LLE, CLEANSED WOUND(CIRCULAR WOUND, APPROX 2-3IN ACROSS TOP OF FOOT, RED IN COLOR, EDGES PARTIALLY HANKS) WITH NORMAL SALINE, SECURED WITH TELFA, 4X4 , KERLIX AND DAR WRAP PER PT REQUEST OF "WHAT THEY NORMALLY DO AT WOUND CENTER", PT TOLERATED WELL, CALL LIGHT WITHIN REACH
[2019-07-10] MEDS ORDERED: ACETAMINOPHEN/CODEINE 300MG - 30MG TAB PO PRN (16:45)
[2019-07-10] MEDS ORDERED: PANTOPRAZOLE 40 MG 10ML VIAL IV SCH (17:00)
[2019-07-10 17:45] VITALS: BP 127/72
[2019-07-10] MEDS ORDERED: TYLENOL WITH C1 EACH PO (18:44)
--- NOTE | 2019-07-10 19:01 | NUR ---
DISCHARGE INSTRUCTIONS REVIEWED WITH PT, VERBALIZED UNDERSTANDING, WHEELED OFF UNIT VIA WC FOR DISCHARGE, NO CHANGE IN CONDITION
--- NOTE | 2019-07-10 19:07 | Discharge Summary ---
ADMISSION DIAGNOSES: Gastroparesis, type 2 diabetes, hypertension, acute kidney injury with dehydration, hypokalemia. DISCHARGE DIAGNOSES: Gastroparesis, type 2 diabetes, hypertension, acute kidney injury with dehydration, hypokalemia. HISTORY: Peptic ulcer disease, gastroparesis, type 2 diabetes, and hypertension. SURGICAL HISTORY: Cholecystectomy and left foot wound surgery. FAMILY HISTORY: The patient's uncle has diabetes. SOCIAL HISTORY: Occasional weed use. HOSPITAL COURSE: A 43-year-old male, admits with complaints of epigastric abdominal pain with associated nausea and vomiting since Thursday. He denies diarrhea and fever. On admission, GI was consulted due to his history of gastroparesis. The patient was started on Protonix drip and Reglan. Throughout the day, the diet was advanced and the patient tolerated well. The Protonix drip was stopped and the patient was started on Protonix IV twice a day. At the time of discharge, the patient is tolerating a regular diet and is ready to go home. He will discharge home with refills on his Reglan, Zofran, Protonix, and Tylenol No. 3. He will follow up with Dr. Torres as discussed. Vital signs are stable. The patient is afebrile. Dictated by Leia Kendrick NP MD BUFFY Portillo/MODL /[id number]
--- NOTE | 2019-07-11 12:35 | NUR ---
PT DISCHARGED 07/10/2019. HOME HEALTH REFERRAL FAXED TO [facility] @ [facility] [phone] / FAX: [phone]
== END 2019-07-10 18:57 | disposition home or self-care (01) ==
LOC: FSED 14:17 → ERHOLD 15:58 → MED/SURG 18:34
PROVIDERS: ADMIT Internal Medicine; ATTEND Internal Medicine
DX: E11.43 Type 2 diabetes mellitus with diabetic autonomic (poly)neuropathy (principal); K31.84 Gastroparesis; Z79.4 Long term (current) use of insulin; I10 Essential (primary) hypertension; N17.9 Acute kidney failure, unspecified; E86.0 Dehydration; E87.6 Hypokalemia; Z87.11 Personal history of peptic ulcer disease; Z90.49 Acquired absence of other specified parts of digestive tract
CPT/HCPCS: 36415 ×2; 80048; 80053; 80076; 81003; 82948 ×2; 83735; 85025 ×2; 96372; 96374; 96375; 96376; 99284; C9113 ×2; G0378 ×2; J1200; J1817; J2270 ×3; J2550; J2765 ×2; J3480; J7030 ×2; J7050

== ENCOUNTER 2019-07-23 05:44 | Inpatient (IN) | payer MEDICARE ==
[2019-07-23] VITALS (10 sets, daily range): BP systolic 109–163; BP diastolic 64–98
[~2019-07-23] VITALS: Ht 185.4 cm; Wt 88.5 kg
[~2019-07-23 05:44] MED LIST changes: +TYLENOL WITH C1 EACH PO
[2019-07-23] MEDS ORDERED: PANTOPRAZOLE 40 MG 10ML VIAL IV STA ×2 (06:01→13:07)
[2019-07-23] MEDS ORDERED: ONDANSETRON HCL INJ 2MG/ML 2ML 2 MG/ML VIAL IV STA ×2 (06:01→06:47)
[2019-07-23] MEDS ORDERED: SODIUM CHLORIDE 0.9% 1000ML 1,000 ML IV SCH (06:15)
[2019-07-23] MEDS ORDERED: MORPHINE SULFATE INJ 4 MG/ML INJ 1ML IV PRN ×2 (06:45→14:45)
[2019-07-23] MEDS ORDERED: DEXTROSE 50% SYRINGE 50 ML IV PRN (06:45)
[2019-07-23] MEDS ORDERED: ONDANSETRON HCL INJ 2MG/ML 2ML 2 MG/ML VIAL IV PRN (06:45)
--- NOTE | 2019-07-23 06:49 | Diagnostic Imaging Report ---
EXAMINATION: CXR 1 [facility] INDICATION: DKA. COMPARISON: Chest radiograph 11/22/2018. FINDINGS: TUBES and LINES: None. LUNGS: Lungs are well inflated. There is no evidence of pneumonia or pulmonary edema. Mild bronchial wall thickening. PLEURA: No pleural effusion or pneumothorax. HEART AND MEDIASTINUM: The cardiomediastinal silhouette is unremarkable. BONES AND SOFT TISSUES: No acute osseous lesion. Soft tissues are unremarkable. UPPER ABDOMEN: No free air under the diaphragm. There are cholecystectomy clips. IMPRESSION: No evidence of pneumonia. Mild bronchial wall thickening, which may represent bronchitis in the appropriate clinical setting. Signed by: Dr. Nataly Huff MD on 07/23/2019 6:46 AM
--- NOTE | 2019-07-23 06:50 | NUR ---
INFORMED NABEEL SHELBY OF ADMIT STATUS
[2019-07-23] MEDS ORDERED: PANTOPRAZOLE INJ 40 MG in SODIUM CHLORIDE 0.9% 50ML 50 ML IV SCH (07:00)
[2019-07-23] MEDS ORDERED: SODIUM CHLORIDE 0.9% 1000 ML BAG IV ONE (07:00)
--- NOTE | 2019-07-23 07:01 | NUR ---
[facility] NOTIFIED OF NEED FOR TRANSFER, ETA 30 MINUTES
--- NOTE | 2019-07-23 07:01 | Diagnostic Imaging Report ---
EXAM: CT Abdomen and Pelvis without contrast INDICATION: Vomiting with hematemesis. COMPARISON: Vomiting with hematemesis. TECHNIQUE: Abdomen and pelvis were scanned utilizing a multidetector helical scanner from the lung base to the pubic symphysis without administration of IV contrast. Coronal and sagittal reformations were obtained. Routine protocol was performed. Lack of intravenous contrast limits evaluation of visceral and vascular structures. IV CONTRAST: None. ORAL CONTRAST: None. COMPLICATIONS: None RADIATION DOSE: Total DLP: 615.3 mGy*cm Estimated effective dose: (DLP x 0.015 x size factor) mSv CTDIvol has been reviewed. It is below the limits set by the Radiation Protocol Committee (RPC). FINDINGS: LINES and TUBES: None. LOWER THORAX: Mild hypoattenuation of the blood pool in relation to the cardiac wall, which may represent anemia. Coronary atherosclerosis (LCX). HEPATOBILIARY: No evidence of focal lesion. No biliary ductal dilation. GALLBLADDER: Status post cholecystectomy. SPLEEN: No splenomegaly. PANCREAS: No focal masses or ductal dilatation. Severe fatty atrophy. ADRENALS: No adrenal nodules KIDNEYS/URETERS: No evidence of hydronephrosis or stone. Mild nonspecific stranding surrounding the bilateral kidneys. GI TRACT: Decompressed stomach. There is wall thickening within the distal transverse, descending, and sigmoid colon. No evidence of bowel obstruction. Normal appendix. Small hiatal hernia. PELVIC ORGANS/BLADDER: Bladder is partially decompressed but appears circumferentially mildly thick-walled. Calcified pelvic phleboliths. LYMPH NODES: No lymphadenopathy. VESSELS: There is mild atherosclerotic disease in the aorta and major arterial branches. PERITONEUM / RETROPERITONEUM: No free air or fluid. BONES AND SOFT TISSUES: No acute osseous abnormality. No suspicious lytic or blastic lesions. Mild degenerative disc changes in the lower thoracic spine. CONCLUSION: Distal colonic wall thickening, suggestive of nonspecific colitis. Recommend clinical correlation. Mild nonspecific bilateral perinephric wall thickening, which may represent infectious or inflammatory etiology. Mild wall thickening within the bladder may reflect decompression or cystitis. Recommend correlation with urinalysis. Severe fatty atrophy of the pancreas. Mild hypoattenuation of the blood pool within the heart, which may represent anemia. Coronary atherosclerosis (LCX). Signed by: Dr. Nataly Huff MD on 07/23/2019 6:58 AM
[2019-07-23] MEDS: SODIUM CHLORIDE 0.9% 1000ML 1,000 ML IV SCH ×5 (07:24→22:38)
[2019-07-23] MEDS: INSULIN REGULAR, HUMAN 100 UNIT/1 ML 3ML VIAL SQ SCH ×4 (07:30→21:00)
[2019-07-23] MEDS ORDERED: MORPHINE SULFATE INJ 4 MG/ML INJ 1ML ONE (08:04)
[2019-07-23] MEDS ORDERED: ZOLPIDEM TARTRATE 5 MG TAB PO PRN (10:45)
--- NOTE | 2019-07-23 11:11 | Consultation ---
DATE OF CONSULTATION: Pulmonary Critical Care Consultation CHIEF COMPLAINT: Nausea and vomiting. HISTORY OF PRESENT ILLNESS: The patient is a 43-year-old man. He has a history of diabetes and gastroparesis. He also has a history of hypertension. He has required hospitalization several times over the past 6 months for nausea and vomiting. He was diagnosed with gastroparesis. He has been on Reglan and Protonix. The patient now complains of worsening vomiting. He has no fever. He has no cough. He reports malaise and fatigue. PAST MEDICAL HISTORY: 1. Diabetes. 2. Hypertension. 3. Gastroparesis. 4. Peptic ulcer disease. PAST SURGICAL HISTORY: 1. Status post cholecystectomy. 2. Status post left foot surgery. SOCIAL HISTORY: The patient is not an active smoker or drinker. FAMILY HISTORY: The patient has a family history of diabetes. ALLERGIES: THERE ARE NO KNOWN DRUG ALLERGIES. REVIEW OF SYSTEMS: The patient is afebrile. He has no headache. He is not having any neck pain. He does not complain of any chest pain. He has no cough or dyspnea. He did have some nausea and vomiting. He denies any abdominal pain at this time. He has no leg edema. PHYSICAL EXAMINATION: VITAL SIGNS: The blood pressure is 135/82 and the saturation is 100%. Pulse is 98. HEENT: Shows no facial swelling or erythema. LYMPHATIC: Shows no submandibular, cervical, or supraclavicular adenopathy. CARDIAC: Reveals a regular rate and rhythm with normal S1 and S2. LUNGS: Auscultation of lungs reveals decreased breath sounds at bases. There is no wheezing. ABDOMEN: Soft and nontender. There is no rebound or guarding. EXTREMITIES: Shows no leg edema or calf tenderness. There is no cyanosis or clubbing. SKIN: Shows no rashes. NEUROLOGICAL: Shows no focal abnormalities. RADIOGRAPHIC DATA: CT scan of the abdomen and pelvis shows some colonic wall thickening, suggestive of possible colitis. There is some thickening of the bladder. Chest x-ray shows no acute disease. IMPRESSION: 1. Nausea and vomiting secondary to gastroparesis. 2. Diabetes out of control. 3. Acute kidney injury. 4. Anemia, unspecified. PLAN: 1. Continue IV hydration. 2. Continue Zofran and antiemetics. 3. Continue the patient's scheduled insulin. 4. The patient is stable for transfer out of the intensive care unit. MD RUTH Benson/SOLANGE /[id number]
[2019-07-23] MEDS ORDERED: METOCLOPRAMIDE HCL 10 MG TAB PO SCH (11:30)
[2019-07-23] MEDS ORDERED: ACETAMINOPHEN/CODEINE 300MG - 30MG TAB PO PRN (12:15)
[2019-07-23 12:38] LABS: BASOPHILS % 0.6 % (0.0-1.0); EOSINOPHILS % 0.4 % (0.0-6.0); HEMATOCRIT 29.4 % (38.2-49.6); HEMOGLOBIN 9.2 g/dL (14.0-18.0); LYMPHOCYTES # (AUTO) 0.8 (1.0-3.2); LYMPHOCYTES % 11.7 % (18.0-39.1); MEAN CORPUSCULAR HEMOGLOBIN 27.8 pg (28-32); MEAN CORPUSCULAR HGB CONC 31.3 g/dL (31-35); MEAN CORPUSCULAR VOLUME 88.8 fL (81-99); MONOCYTES # (AUTO) 0.4 (0.2-0.8); MONOCYTES % 5.8 % (4.4-11.3); NEUTROPHILS # (AUTO) 5.7 (2.1-6.9); NEUTROPHILS % 81.2 % (38.7-80.0); PLATELET COUNT 232 x10e3/uL (140-360); RED BLOOD COUNT 3.31 x10e6/uL (4.3-5.7); RED CELL DISTRIBUTION WIDTH 14.6 % (11.7-14.4)
[2019-07-23 12:58] LABS: ALANINE AMINOTRANSFERASE 19 IU/L (0-55); ALBUMIN 3.2 g/dL (3.5-5.0); ALKALINE PHOSPHATASE 110 IU/L (40-150); ANION GAP 12.5 mmol/L (8-16); BLOOD UREA NITROGEN 19 mg/dL (7-26); BUN/CREATININE RATIO 14 (6-25); CALCIUM 8.7 mg/dL (8.4-10.2); CARBON DIOXIDE 25 mmol/L (22-29); CHLORIDE 104 mmol/L (98-107); CREATININE, SERUM 1.39 mg/dL (0.72-1.25); EST GLOMERULAR FILTRATION RATE > 60 ML/MIN (60-); GLUCOSE 275 mg/dL (74-118); POTASSIUM 4.5 mmol/L (3.5-5.1); SODIUM 137 mmol/L (136-145)
[2019-07-23 13:00] LABS: LIPASE < 4 U/L (8-78)
[2019-07-23] MEDS ORDERED: PANTOPRAZOLE IV ONE (14:00)
[2019-07-23] MEDS ORDERED: SODIUM CHLORIDE 0.9% IV ONE (14:00)
[2019-07-23] MEDS: PANTOPRAZOL 40MG/SOD CHL 0.9% 250 ML IV SCH ×2 (14:33→17:46)
[2019-07-23] MEDS: MORPHINE SULFATE 2 MG/ML SYR 1ML IV PRN ×2 (15:31→23:07)
--- NOTE | 2019-07-23 17:19 | NUR ---
RECD PT ROM ICU VIA W/C AAOX3,IV 20 G TO LT /RT AC PATENT,DRSG TO LT LEG,CD&I,PT STATES HAD DEBRIDEMENT DONE 2 WEEKS AGO AND OUTPATIENT WOUND CARE DRESSES IT.DENIES PAIN
--- NOTE | 2019-07-23 17:22 | NUR ---
Nutrition Screen Note RD Recommendation for Physician: -Rec ADAT to ADA 1800 diet -Pt is not interested in diet education; pt to follow up with dietitian/ consumer experience consultant at his endocrinology office Plan of Care: RD following, monitoring for tolerance and adequacy Nutrition reason for involvement: MST Primary Diagnose(s): 1. Nausea and vomiting secondary to gastroparesis. 2. Diabetes out of control. PMH: 1. Diabetes. 2. Hypertension. 3. Gastroparesis. 4. Peptic ulcer disease. Ht: 73in Wt: 195lb BMI: 25.7kg/m2 IBW: 184lb +/- 10% RD Assessment: (07/22) Chart reviewed. Labs and meds reviewed. 43yo M, who is admitted for nausea and vomiting secondary to gastroparesis. HbA1c at 8.4%. POC glucose 200-300. Visited pt in the room. Pt reports tolerance to clear liquid. No complains of nausea or vomiting. Pt denies any chewing or swallowing difficulty. His weight is stable with UBW fluctuates between 185-195lbs. Pt usually follows up with a dietitian/ consumer experience consultant at his endocrinology office. Pt verbalizes understanding of diabetic diet and is not interested in any diet education during my time of visit. Will continue to monitor and follow. Current Diet: Full liquid diet Malnutrition Evaluation (07/23/2019) The patient does not meet criteria for a specified degree of malnutrition at this time. Will re-evaluate at follow-up as appropriate. Diet Education Needs Assessment: Diet education indicated, pt is not interested. Nutrition Care Level: low Signed: Melinda Nina, MS, RD, LD
[2019-07-23] MEDS: METOCLOPRAMIDE HCL 10 MG/2ML VIAL IV SCH ×2 (17:46→23:07)
--- NOTE | 2019-07-23 20:02 | NUR ---
Received change of shift report from AM nurse. Walking rounds completed.
[2019-07-23] MEDS ORDERED: INSULIN GLARGINE 100 UNITS/ML VIAL SQ SCH (21:00)
[2019-07-24] VITALS: BP 156/75
--- NOTE | 2019-07-24 | NUR ---
Patient up to shower. Leg dressing wrapped. Patient AAOx3. BS 220 received insulin as ordered to right upper arm. Patient tolerated well. Patient requested pain meds 6-7. Meds given as ordered by MD. Continue monitor.
[2019-07-24 01:46] VITALS: BP 132/71
[2019-07-24] MEDS: SODIUM CHLORIDE 0.9% 1000ML 1,000 ML IV SCH (02:38)
--- NOTE | 2019-07-24 03:26 | NUR ---
Patient resting quitly at this time. No c/o. Continue monitor.
[2019-07-24 04:00] VITALS: BP 162/76
[2019-07-24] MEDS: METOCLOPRAMIDE HCL 10 MG/2ML VIAL IV SCH ×2 (05:11→11:54)
[2019-07-24 07:06] LABS: BASOPHILS # (AUTO) 0.1 (0.0-0.1); BASOPHILS % 0.9 % (0.0-1.0); EOSINOPHILS # (AUTO) 0.2 (0.0-0.4); EOSINOPHILS % 2.6 % (0.0-6.0); HEMATOCRIT 29.7 % (38.2-49.6); HEMOGLOBIN 9.4 g/dL (14.0-18.0); LYMPHOCYTES # (AUTO) 1.6 (1.0-3.2); LYMPHOCYTES % 24.9 % (18.0-39.1); MEAN CORPUSCULAR HEMOGLOBIN 28.6 pg (28-32); MEAN CORPUSCULAR HGB CONC 31.6 g/dL (31-35); MEAN CORPUSCULAR VOLUME 90.3 fL (81-99); MONOCYTES # (AUTO) 0.6 (0.2-0.8); NEUTROPHILS # (AUTO) 3.9 (2.1-6.9); NEUTROPHILS % 61.3 % (38.7-80.0); PLATELET COUNT 132 x10e3/uL (140-360); RED BLOOD COUNT 3.29 x10e6/uL (4.3-5.7); RED CELL DISTRIBUTION WIDTH 14.5 % (11.7-14.4)
--- NOTE | 2019-07-24 07:30 | NUR ---
PT IN BED SLEEPING NO DISTRESS NOTED
[2019-07-24 07:31] LABS: ALANINE AMINOTRANSFERASE 15 IU/L (0-55); ALBUMIN 3.1 g/dL (3.5-5.0); ALKALINE PHOSPHATASE 106 IU/L (40-150); AMYLASE 36 U/L (25-125); ANION GAP 10.7 mmol/L (8-16); BLOOD UREA NITROGEN 13 mg/dL (7-26); BUN/CREATININE RATIO 10 (6-25); CALCIUM 8.6 mg/dL (8.4-10.2); CARBON DIOXIDE 23 mmol/L (22-29); CHLORIDE 106 mmol/L (98-107); CREATININE, SERUM 1.24 mg/dL (0.72-1.25); EST GLOMERULAR FILTRATION RATE > 60 ML/MIN (60-); GLUCOSE 148 mg/dL (74-118); POTASSIUM 3.7 mmol/L (3.5-5.1); SODIUM 136 mmol/L (136-145)
[2019-07-24 07:33] LABS: LIPASE < 4 U/L (8-78)
[2019-07-24] MEDS: MORPHINE SULFATE 2 MG/ML SYR 1ML IV PRN (08:19)
[2019-07-24 08:20] VITALS: BP 150/89
[2019-07-24] MEDS: INSULIN REGULAR, HUMAN 100 UNIT/1 ML 3ML VIAL SQ SCH ×2 (08:20→11:30)
[2019-07-24] MEDS ORDERED: LISINOPRIL 2.5 MG TAB PO SCH (09:00)
[2019-07-24 09:18] VITALS: BP 150/89
[2019-07-24 12:23] VITALS: BP 188/97
[2019-07-24] MEDS ORDERED: FUROSEMIDE INJ 10 MG/ML 2 ML VIAL IV ONE (12:30)
[2019-07-24] MEDS ORDERED: PANTOPRAZOLE 40 MG 10ML VIAL IV SCH (17:00)
--- NOTE | 2019-07-24 19:15 | Discharge Summary ---
ADMISSION DIAGNOSES: 1. Gastroparesis. 2. Type 2 diabetes. 3. Hypertension. DISCHARGE DIAGNOSES: 1. Gastroparesis. 2. Type 2 diabetes. 3. Hypertension. HISTORY: PUD, gastroparesis, type 2 diabetes, and hypertension. SURGICAL HISTORY: Left foot wound surgery and cholecystectomy. FAMILY HISTORY: The patient's uncle has diabetes. SOCIAL HISTORY: Occasional weed use. HOSPITAL COURSE: A 43-year-old male with frequent admission due to gastroparesis, admits with complaints of sharp epigastric abdominal pain with associated nausea and vomiting that began yesterday morning around 9:30. The patient had an EGD on 07/06/2019, that showed gastritis and esophagitis. He was discharged 2 weeks ago with 30 days worth of Zofran, Reglan, Protonix, and Tylenol 3. On admission, the patient was resumed on the Reglan, Zofran, and Protonix. GI was consulted. The patient was initially on a Protonix drip, but weaned off and diet was advanced as tolerated. The patient will discharge home, continuing home medicine. He will follow up with GI for an additional EGD as discussed. The patient understands instructions and agrees to plan. Vital signs stable. The patient is afebrile. Dictated by Leia Kendrick NP MD BUFFY Portillo/MODL /[id number]
== END 2019-07-24 13:59 | disposition home or self-care (01) | DRG 73 ==
LOC: FSED 05:44 → ERHOLD 06:38 → ICU 08:44 → MED/SURG3 17:03
PROVIDERS: ADMIT Internal Medicine; ATTEND Internal Medicine
DX: E11.43 Type 2 diabetes mellitus with diabetic autonomic (poly)neuropathy (principal); K29.51 Unspecified chronic gastritis with bleeding; N17.9 Acute kidney failure, unspecified; K31.84 Gastroparesis; Z90.49 Acquired absence of other specified parts of digestive tract; E86.0 Dehydration; Z83.3 Family history of diabetes mellitus; K27.9 Peptic ulcer, site unspecified, unspecified as acute or chronic, without hemorrhage or perforation; D64.9 Anemia, unspecified; Z79.4 Long term (current) use of insulin; E11.65 Type 2 diabetes mellitus with hyperglycemia
CPT/HCPCS: 36415; 71045; 74176; 80048; 80053; 80076; 81003; 82150; 82948; 83036; 83605; 83690; 85025; 86850; 86900; 87040; 87071; 87205; 93005; 96365; 96366; 96372; 96374; 96375; 96376; 99284; J1817; J1940; J2270; J2405; J2765; J7030; J7050

== ENCOUNTER 2019-08-23 17:24 | Emergency (ER) | payer MEDICARE ==
[~2019-08-23] VITALS: Ht 185.4 cm; Wt 88.5 kg
--- OUTSIDE RECORDS SUMMARY | 2019-08-23 17:27 | XMS REPORT | Clinical Summary ---
Author [facility] Address Unknown Phone Unavailable Care Team Providers Care Filling Carrier Name Role Phone Pcp, No PCP Unavailable Allergies No Known Allergies Medications End Date Status Medication Sig Dispensed Refills Start Date Active insulin aspart U-100 Inject 5 0 (NOVOLOG) 100 unit/mL Units injectionIndications: subcutaneousl type 2 diabetes mellitus y 3 (three) times daily before meals. Active insulin glargine (LANTUS) Inject 25 0 100 unit/mL Units injectionIndications: subcutaneousl type 2 diabetes mellitus y nightly Use as directed . Active dicyclomine (BENTYL) 10 Take 10 mg by 0 MG capsule mouth 3 (three) times daily. Active metoclopramide HCl Take 10 mg by 0 (REGLAN) 10 MG mouth 4 tabletIndications: (four) times diabetic gastroparesis daily as needed for Nausea. Active pantoprazole (PROTONIX) Take 20 mg by 0 20 MG tablet mouth 2 (two) times daily before meals. Active traMADol (ULTRAM) 50 mg Take 50 mg by 0 tablet mouth 3 (three) times daily. 12/21/2018 promethazine (PHENERGAN) Take 1 tablet 15 tablet 0 12.5 MG tablet (12.5 mg 9 total) by mouth every 6 (six) hours as needed for Nausea for up to 7 days. Active Problems Problem Noted Date Gastroparesis 12/13/2018 Encounters Care Team Description Date Type Specialty Sharon Lee MD Athreya, Khannan Kameshvaran, MD Gastroparesis; Diabetes mellitus due to underlying condition with hyperglycemia, with long-term current use of insulin (HCC); Cannabinoid hyperemesis syndrome (HCC); Hypokalemia 12/13/2018 [facility] Internal Ny dicine - Encounter 12/14/2018 12/13/2018 Travel after 08/22/2018 Family History Medical History Relation Name Comments Diabetes Maternal Uncle Diabetes Mother Relation Name Status Comments Maternal Uncle Mother Social History Date Tobacco Use Types Packs/Day Years Used Never Smoker Smokeless Tobacco: Never Used Alcohol Use Drinks/Week oz/Week Comments No Alcohol Habits Answer Date Recorded How often do you have a drink containing alcohol? Never 12/13/2018 How many drinks containing alcohol do you have on No t asked a typical day when you are drinking? How often do you have six or more drinks on one Not asked occasion? Sex Assigned at Date Recorded Not on file Industry Job Start Date Occupation Not on file Not on file Not on file Travel End Travel History Travel Start No recent travel history available. Last Filed Vital Signs Time Taken Vital Sign Reading 12/14/2018 3:44 PM CDT Blood Pressure 160/82 12/14/2018 3:44 PM CDT Pulse 69 12/14/2018 3:44 PM CDT Temperature 37.4 C (99.4 F) 12/14/2018 3:44 PM CDT Respiratory Rate 18 12/14/2018 3:44 PM CDT Oxygen Saturation 97% - Inhaled Oxygen - Concentration 12/13/2018 10:20 AM CDT Weight 86.3 kg (190 lb 3.2 oz) - Height - - Body Mass Index - Plan of Treatment Not on file Procedures Comments Procedure Name Priority Date/Time Associated Diag nosis REPORT OF PROCEDURE - 12/16/2018 ENDOSCOPY SCAN 9:02 AM CDT POCT-GLUCOSE METER Routine 12/14/2018 5:15 PM CDT POCT-GLUCOSE METER Routine 12/14/2018 12:04 PM CDT ECG 12-LEAD Routine 12/14/2018 10:08 AM CDT POCT-GLUCOSE METER Routine 12/14/2018 7:43 AM CDT CBC W/PLT COUNT & AUTO Routine 12/14/2018 DIFFERENTIAL 4:58 AM CDT CBC W/PLT COUNT & AUTO Routine 12/14/2018 DIFFERENTIAL 4:58 AM CDT MAGNESIUM Routine 12/14/2018 4:58 AM CDT PHOSPHORUS Routine 12/14/2018 4:58 AM CDT BASIC METABOLIC PANEL (7) Routine 12/14/2018 4:58 AM CDT POCT-GLUCOSE METER Routine 12/13/2018 9:09 PM CDT POCT-GLUCOSE METER Routine 12/13/2018 3:54 PM CDT CBC W/PLT COUNT & AUTO Routine 12/13/2018 DIFFERENTIAL 3:38 PM CDT CBC W/PLT COUNT & AUTO Routine 12/13/2018 DIFFERENTIAL 3:38 PM CDT LIPID PANEL Routine 12/13/2018 3:38 PM CDT HEMOGLOBIN A1C Routine 12/13/2018 3:38 PM CDT HEPATIC FUNCTION PANEL Routine 12/13/2018 3:38 PM CDT BASIC METABOLIC PANEL (7) Routine 12/13/2018 3:38 PM CDT POCT-GLUCOSE METER Routine 12/13/2018 12:25 PM CDT after 08/22/2018 Results * EKG-SCANNED (12/16/2018 9:02 AM CDT) Narrative Performed At This result has an attachment that is n ot available. * POC-Glucose meter (12/14/2018 5:15 PM CDT) Only the most recent of 6 results within the time period is included. POC-Glucose Meter 266 (H)Comment: TESTED AT 70 - 110 mg/dL C HI [facility] [address] [facility] [id number] Specimen Blood Performing Organization Address City/State/Zipcode Ph one Number [facility] [address] [place], [place] [address] [facility] * ECG 12 lead (12/14/2018 10:08 AM CDT) Specimen Narrative Performed At Ventricular Rate 78 BPM GE [facility] Atrial Rate 78 BPM P-R Interval 168 ms QRS Duration 80 ms Q-T Interval 350 ms QTC Calculation(Bazett) 399 ms P Hepler 52 degrees R Hepler -14 degrees T Hepler 35 degrees Normal sinus rhythm Normal ECG No previous ECGs available Confirmed by MD BRODERICK YOCHAI ([id number] ) on 12/14/2018 2:27:24 PM Procedure Note Interface, External Ris In - 12/14/2018 2:27 PM CDT Ventricular Rate 78 BPM Atrial Rate 78 BPM P-R Interval 168 ms QRS Duration 80 ms Q-T Interval 350 ms QTC Calculation(Bazett) 399 ms P Hepler 52 degrees R Hepler -14 degrees T Hepler 35 degrees Normal sinus rhythm Normal ECG No previous ECGs available Confirmed by MD BRODERICK YOCHAI ([id number]) on 12/14/2018 2:27:24 PM Performing Organization Address City/State/Zipcode Ph one Number GE MUSE * CBC with platelet count + automated diff (12/14/2018 4:58 AM CDT) Only the most recent of 2 results within the time period is included. WBC 7.5 3.5 - 10.5 K/L [facility] RBC 3.38 (L) 4.63 - 6.08 M/L [facility] Hemoglobin 9.8 (L) 13.7 - 17.5 GM/DL [facility] Hematocrit 31.1 (L) 40.1 - 51.0 % [facility] MCV 92.0 79.0 - 92.2 fL [facility] MCH 29.0 25.7 - 32.2 pg [facility] MCHC 31.5 (L) 32.3 - 36.5 GM/DL [facility] RDW 14.1 11.6 - 14.4 % [facility] Platelets 208Comment: Discordant PLT 150 - 450 K/CU MM [facility] results compared to previous [facility] results; clinical correlation required. MPV 10.4 9.4 - 12.4 fL [facility] nRBC 0 0 - 0 /100 WBC [facility] % Neutros 66 % [facility] % Lymphs 20 % [facility] % Monos 12 % [facility] % Eos 1 % [facility] % Baso 1 % [facility] # Neutros 4.92 1.78 - 5.38 K/L [facility] # Lymphs 1.46 1.32 - 3.57 K/L [facility] # Monos 0.92 (H) 0.30 - 0.82 K/L [facility] # Eos 0.10 0.04 - 0.54 K/L [facility] # Baso 0.07 0.01 - 0.08 K/L [facility] Immature 0 0 - 1 % [facility] Granulocytes-[facility] Specimen Blood Performing Organization Address [facility] one Number [place] [address] [phone] [place] [address] * Phosphorus (12/14/2018 4:58 AM CDT) Phosphorus 2.2 (L) 2.3 - 4.7 mg/dL [facility] Specimen Blood Performing Organization Address City/[facility] Ph one Number [place] [address] [address] [phone] [place] [address] * Magnesium (12/14/2018 4:58 AM CDT) Magnesium 1.6 1.6 - 2.6 mg/dL [facility] Specimen Blood Performing Organization Address City/[facility]/Zipcode Ph one Number [address] [facility] * Basic metabolic panel (12/14/2018 4:58 AM CDT) Only the most recent of 2 results within the time period is included. Sodium 139 136 - 145 meq/L [facility] Potassium 3.2 (L) 3.5 - 5.1 meq/L [facility] Chloride 105 98 - 107 meq/L [facility] CO2 28 22 - 29 meq/L [facility] BUN 11 7 - 21 mg/dL [facility] Creatinine 1.12 0.57 - 1.25 mg/dL [facility] Glucose 112 (H) 70 - 105 mg/dL [facility] Calcium 8.7 8.4 - 10.2 mg/dL [facility] EGFR 87Comment: ESTIMATED GFR IS mL/min/1.[address] [facility] NOT ACCURATE CREATININE [facility] CLEARANCE IN PREDICTING GLOMERULAR FILTRATION RATE. ESTIMATED GFR IS NOT APPLICABLE FOR DIALYSIS PATIENTS. Specimen Blood Performing Organization Address [facility] one Number [address] [facility] * Hemoglobin A1c (12/13/2018 3:38 PM CDT) Hemoglobin A1C 8.4 (H) 4.3 - 6.1 % [facility] Specimen Blood Performing Organization Address City/[facility] one Number [address] [facility] * Hepatic function panel (12/13/2018 3:38 PM CDT) Protein, Total 6.9 6.0 - 8.3 gm/dL [facility] Albumin 3.9 3.5 - 5.0 g/dL [facility] Total Bilirubin 0.5 0.2 - 1.2 mg/dL [facility] Bilirubin, Direct 0.2 0.1 - 0.5 mg/dL [facility] Alkaline Phosphatase 80 40 - 150 U/L [facility] AST 18 5 - 34 U/L [facility] ALT 15 6 - 55 U/L [facility] Specimen Blood Performing Organization Address [facility] Ph one Number [facility] [address] [place] [address] [facility] * Lipid panel (12/13/2018 3:38 PM CDT) Triglycerides 101 mg/dL [facility] Cholesterol 151 mg/dL [facility] HDL 38 mg/dL [facility] LDL Calculated 93 mg/dL [facility] Specimen Blood Narrative Performed At Triglyceride Reference Range: [facility] Low Risk <150 [facility] [id number] High Risk 200-499 Very High Risk>=500 Cholesterol Reference Range: Low Risk <200 [id number] High Risk>240 HDL Cholesterol Reference Range: Low Risk >=60 High Risk <40 LDL Cholesterol Reference Range: Optimal<100 Near [id number] [id number] [id number] Very High >=190 Performing Organization Address [facility] Ph one Number [facility] [address] [place] [address] [facility] after 08/22/2018 Insurance Payer Benefit Subscriber ID Type Phone Address Plan / Group MEDICARE MEDICARE A xxxxxxxxxxx Medicare B [id number] Advance Directives For more information, please contact: [address] [address] Date Inactivated Comments Code Status Date Activated 12/15/2018 12:01 AM Full Code 12/13/2018 10:07 AM This code status was determined by: Patient
--- OUTSIDE RECORDS SUMMARY | 2019-08-23 17:28 | XMS REPORT ---
Author Author [facility] t Organization [facility] t Address [address] [address] [facility]. [address] [place] [address] Phone Unavailable Support Name Relationship Address Phone Aleisha Ashton ECON [address] [place], [place] [address] ALEISHA PARKER Next Of Kin [address] [place], [place] [address] Isis RUFFIN MD Caregiver [address] [place] [address] Unavailable AGUS FALLON, MELY Caregiver [address] [place] [address] Chao BECKMAN Caregiver [address] [place] [address] TANVIR FALLON, Mary Ann BENITEZ Caregiver [address] [place] [address] Unavailable AAYUSH FALLON, Mary Ann CALDWELL Caregiver [address] [place] [address] Unavailable ISACC JAVED MD Caregiver [address] [facility] [address] [place] [address] CHRIS FALLON, NEIL Caregiver [address] [facility] [address] [place] [address] Unavailable Kelly GORDON MD Caregiver [address] [place] [address] Unavailable Isis FRANKLIN MD Caregiver [address] [place] [address] Unavailable ARIADNA FALLON, FILIBERTO Caregiver [address] [facility] [address] [place], [place] [id number] RIGOBERTO FALLON, Isis NEWMAN Caregiver [address] [facility] [address] [place], [place] [phone] ALEISHA PARKER PRS [address] [place], [place] [address] Care Team Providers Care Air Brake Operator Name Role Phone Chao BECKMAN PCP NEIL PEREZ Attphys Unavailable Dasia GIBSON, Zaina Attphys GADICHERLA, MURALINATH DORETHA Attphys Unavailable ISACC JAVED Attphys Unavailable TAVIA GARCIA Attphys Unavailable GADICHERLA, MURALINATH DORETHA Admphys Unavailable KILLNATIVIDAD, ISACC Admphys Unavailable Payers Payer Name Policy Type Policy Number Effective Date Expiration Date S tsering Medicare A & B [id number] 2016 00:00:[address] [facility] Medicare A & B [id number] 2016 00:00:[address] [facility] Medicare A & B [id number] 2016 00:00:[address] [facility] Medicare A & B [id number] 2016 00:00:00 [facility] Medicare A & B [id number] 2016 00:00:00 [facility] Medicare A & B [id number] 2016 00:00:00 [facility] Medicare A & B [id number] 2016 00:00:[address] [facility] Medicare A & B [id number] 2016 00:00:00 [facility] Problems Condition Name Condition Details Condition Category Status Onset Date Resolution Date Last Treatment Date Treating Clinician Comments Source Diabetic gastroparesis associated with type 2 diabetes mellitus Diabetic gastroparesis associated with type 2 diabetes mellitus Problem Active [facility] Upper gastrointestinal hemorrhage Upper GI bleed Problem Active [facility] Dehydration Dehydration Problem Active [facility] Nausea and vomiting Nausea & vomiting Problem Active [facility] Allergies, Adverse Reactions, Alerts Allergy Name Allergy Type Status Severity Reaction(s) Onset Date Inacti ve Date Treating Clinician Comments Source No Known Allergies DA Active U 2019-02-13 00:00:00 [facility] No Known Allergies DA Active U 2019-02-06 00:00:00 [facility] No Known Allergies DA Active U 2018-05-11 00:00:00 [facility] No Known Allergies DA Active U 2018-02-26 00:00:00 [facility] No Known Allergies DA Active U 2018-01-14 00:00:00 [facility] No Known Allergies DA Active U 2017-12-15 00:00:00 [facility] No Known Allergies DA Active U 2017-10-09 00:00:00 [facility] Medications Ordered Medication Name Filled Medication Name Start Date Stop Da te Current Medication? Ordering Clinician Indication Dosage Frequency Signature (SIG) Comments Components Source Acetaminophen With Codeine (Tylenol With Codeine #3 Ta blet) 1 Each Tablet Acetaminophen With Codeine (Tylenol With Codeine #3 Tablet) 1 Each Tablet 2019-07-10 00:00:00 Yes Leia Kendrick Grant Writer 300 Every 6 Hours as needed for Pain [facility] Promethazine Hcl 25 Mg Tablet, 25 Mg Oral Promethazine Hcl 25 Mg Tablet, 25 Mg Oral 2019-07-06 00:00:00 2019-07-10 00:00:00 No Filiberto Amin Md 25 Three Times A Day [facility] Ondansetron (Ondansetron Odt) 8 Mg Tab.rapdis, 4 Mg Or al Ondansetron (Ondansetron Odt) 8 Mg Tab.rapdis, 4 Mg Oral 2018-12-12 00:00:00 2019-06-29 2 00:00:00 No Ellis Gordon Md 4 Thre e Times A Day as needed for Nausea, Vomiting [facility] Promethazine Hcl (Phenergan Supp*) 25 Mg Supp, 25 Mg R ectal Promethazine Hcl (Phenergan Supp*) 25 Mg Supp, 25 Mg Rectal 2018-12-12 00:00:00 2019-07-10 00:00:00 La Gordon Md 25 Thre e Times A Day as needed for Nausea, Vomiting [facility] Metoclopramide Hcl (Reglan) 10 Mg Tablet Metoclopramid e Hcl (Reglan) 10 Mg Tablet 2018-11-25 00:00:00 Yes Leia Kendrick Grant Writer 1 Before Meals And At Bedtime [facility] Pantoprazole Sodium (Protonix) 40 Mg Tablet. Pantopr azole Sodium (Protonix) 40 Mg Tablet. 2018-11-25 00:00:00 Yes Leia Kendrick Grant Writer 40 Daily [facility] Amlodipine Besylate (Norvasc) 10 Mg Tab, 10 Mg Oral Am lodipine Besylate (Norvasc) 10 Mg Tab, 10 Mg Oral 2018-11-25 00:00:00 2019-07-09 00:00:00 No Leia Kendrick Grant Writer 10 Daily [facility] Insulin Aspart (Novolog) 100 Units/1 Ml Inj Insulin As part (Novolog) 100 Units/1 Ml Inj Yes 8 Three Times Daily With Meals [facility] Insulin Glargine (Lantus 3ML Pen) 100 Units/1 Ml Inj I nsulin Glargine (Lantus 3ML Pen) 100 Units/1 Ml Inj Yes 15 Bedtime [facility] Lisinopril 5 Mg Tablet Lisinopril 5 Mg Tablet Yes 5 Daily [facility] Ondansetron Hcl 4 Mg Tablet Ondansetron Hcl 4 Mg Tablet Yes 4 Every 6 Hours as needed for Nausea [facility] Dicyclomine Hcl 10 Mg Capsule, 10 Mg Oral Dicyclomine Hcl 10 Mg Capsule, 10 Mg Oral 2019-07-10 00:00:00 No 10 Three Times A Day [facility] Promethazine Hcl 25 Mg Tablet, 25 Mg Oral Promethazine Hcl 25 Mg Tablet, 25 Mg Oral 2019-07-10 00:00:00 No 25 Three Times A Day as needed for Nausea [facility] Tramadol Hcl (Ultram 50MG*) 50 Mg Tab, 1 Tab Oral Tram adol Hcl (Ultram 50MG*) 50 Mg Tab, 1 Tab Oral 2019-07-10 00:00:00 No 1 Three Times A Day as needed for Mild Pain (1-3) Or Fever>100.8 [facility] Glimepiride 2 Mg Tablet, 2 Mg Oral Glimepiride 2 Mg Tablet, 2 Mg Oral 2019-07-09 00:00:00 No 2 Daily [facility] Metoclopramide Hcl (Reglan) 10 Mg Tablet, 1 Tab Oral M etoclopramide Hcl (Reglan) 10 Mg Tablet, 1 Tab Oral 2018-11-25 00:00:00 No 1 Bedtime [facility] Metoclopramide Hcl 10 Mg Tablet, 10 Mg Oral Metoclopra mide Hcl 10 Mg Tablet, 10 Mg Oral 2018-11-25 00:00:00 No 10 Three Times A Da y [facility] Metoclopramide Hcl (Reglan) 10 Mg Tablet, 1 Tab Oral M etoclopramide Hcl (Reglan) 10 Mg Tablet, 1 Tab Oral 2018-11-25 00:00:00 No 1 Three Times A Day [facility] Pantoprazole Sodium (Protonix) 40 Mg Tablet.dr, 40 Mg Oral Pantoprazole Sodium (Protonix) 40 Mg Tablet.dr, 40 Mg Oral 2018-11-25 00:00:00 No 40 Daily [facility] Pantoprazole Sodium (Protonix) 40 Mg Tablet.dr, 40 Mg Oral Pantoprazole Sodium (Protonix) 40 Mg Tablet.dr, 40 Mg Oral 2018-11-25 00:00:00 No 40 Twice A Day [facility] Procedures This patient has no known procedures. Encounters Start Date/Time End Date/Time [facility]counter Type [facility] Encounter ID Source 2019-07-09 15:58:00 2019-07-10 18:57:00 Discharged Inpatient (obs) [facility] [id number] [facility] 2019-07-06 11:09:00 2019-07-06 14:11:00 Departed Emergency Room [facility] [id number] [facility] 2019-05-31 00:00:00 2019-05-31 00:00:00 Transition of Care Zaina Forman [id number] 2018-12-13 06:33:00 2018-12-13 08:35:00 Departed Emergency Room [facility] [id number] [facility] 2018-12-12 17:07:00 2018-12-12 19:35:00 Departed Emergency Room [facility] [id number] [facility] 2018-11-22 18:24:00 2018-11-25 16:05:00 Discharged Inpatient 1 ISACC JAVED [facility] [id number] [facility] 2018-09-28 12:15:00 2018-09-28 16:32:00 Departed Emergency Room [facility] [id number] [facility]. [facility] 2018-09-20 08:55:00 2018-09-20 08:55:00 Registered Clinic 3 LESLI GARCIAURICE [facility] [id number] [facility] 2018-08-10 13:35:00 2018-08-10 17:00:00 Departed Emergency Room [facility] [id number] [facility]. [facility] 2018-07-05 11:53:00 2018-07-07 08:40:00 Discharged Inpatient [facility] [id number] [facility] 2018-06-23 07:38:00 2018-06-23 07:38:00 Registered Clinic 3 TAVIA GARCIA [facility] [id number] [facility] Results Test Description Test Time Test Comments Results Result Comments Source CT ABD/PEL WO CONTRAST-HOPD 2019-07-23 06:46:00 [place] [address] Patient Name: BREE ASHTON MR #: [id number] : 1975 [facility] 43[id number] Re #: [id number] [facility] Physician: Ordered by: NEIL PEREZ MD Report #: [id number] Location: [facility] Room/Bed: Procedure: [id number] HOPD/CT ABD/PEL WO CONTRAST-HOPD Exam Date: 07/23/19 Exam Time: 618 REPORT STATUS: Signed EXAM: CT Abdomen and Pelvis without contrast INDICATION: Vomiting with hematemesis. COMPARISON: Vomiting with hematemesis. TECHNIQUE: Abdomen and pelvis were scanned utilizing a multidetector helical scanner from the lung base to the pubic symphysis without administration of IV contrast. Coronal and sagittal reformations were obtained. Routine protocol was performed. Lack of intravenous contrast limits evaluation of visceral and vascular structures. IV CONTRAST: None. ORAL CONTRAST: None. COMPLICATIONS: None RADIATION DOSE: Total DLP: 615.3 mGy*cm Estimated effective dose: (DLP x 0.015 x size factor) mSv CTDIvol has been reviewed. It is below the limits set by the Radiation Protocol Committee (RPC). FINDINGS: LINES and TUBES: None. LOWER THORAX: Mild hypoattenuation of the blood pool in relation to the cardiac wall, which may represent anemia. Coronary atherosclerosis (LCX). HEPATOBILIARY: No evidence of focal lesion. No biliary ductal dilation. GALLBLADDER: Status post cholecystectomy. SPLEEN: No splenomegaly. PANCREAS: No focal masses or ductal dilatation. Severe fatty atrophy. ADRENALS: No adrenal nodules KIDNEYS/URETERS: No evidence of hydronephrosis or stone. Mild nonspecific stranding surrounding the bilateral kidneys. GI TRACT: Decompressed stomach. There is wall thickening within the distal transverse, descending, and sigmoid colon. No evidence of bowel obstruction. Normal appendix. Small hiatal hernia. PELVIC ORGANS/BLADDER: Bladder is partially decompressed but appears circumferentially mildly thick-walled. Calcified pelvic phleboliths. LYMPH NODES: No lymphadenopathy. VESSELS: There is mild atherosclerotic disease in the aorta and major arterial branches. P ERITONEUM / RETROPERITONEUM: No free air or fluid. BONES AND SOFT TISSUES: No acute osseous abnormality. No suspicious lytic or blastic lesions. Mild degenerative disc changes in the lower thoracic spine. CONCLUSION: Distal colonic wall thickening, suggestive of nonspecific colitis. Recommend clinical correlation. Mild nonspecific bilateral perinephric wall thickening, which may represent infectious or inflammatory etiology. Mild wall thickening within the bladder may reflect decompression or cystitis. Recommend correlation with urinalysis. Severe fatty atrophy of the pancreas. Mild hypoattenuation of the blood pool within the heart, which may represent anemia. Coronary atherosclerosis (LCX). Signed by: Dr. Allison Adame MD on 07/23/2019 6:58 AM Dictated By: ALLISON ADAME MD 7 Transcribed By: PAULA on 07/23/19657 COPY TO: NEIL PEREZ MD CXR 1 [facility] 2019-07-23 06:44:00 [place] [address] Patient Name: BREE ASHTON MR #: [id number] : 1975 Age/Sex: 43/M Req #: [id number] Adm Physician: Ordered by: NEIL PEREZ MD Report #: [id number] Location: [facility] Room/Bed: Procedure: [id number] HOPD/CXR 1 VEW - [facility] Exam Date: Exam Time: REPORT STATUS: Signed EXAMINATION: CXR 1 W - [facility] INDICATION: DKA. COMPARISON: Chest radiograph 11/22/2018. FINDINGS: TUBES and LINES: None. LUNGS: Lungs are well inflated. There is no evidence of pneumonia or pulmonary edema. Mild bronchial wall thickening. PLEURA: No pleural effusion or pneumothorax. HEART AND MEDIASTINUM: The cardiomediastinal silhouette is unremarkable. BONES AND SOFT TISSUES: No acute osseous lesion. Soft tissues are unremarkable. UPPER ABDOMEN: No free air under the diaphragm. There are cholecystectomy clips. IMPRESSION: No evidence of pneumonia. Mild bronchial wall thickening, which may represent bronchitis in the appropriate clinical setting. Signed by: Dr. Allison Adame MD on 07/23/2019 6:46 AM Dictated By: ALLISON ADAME MD 5 Transcribed By: PAULA on 07/23/19645 COPY TO: NEIL PEREZ MD Bedside Glucose 2019-07-10 08:12:00 Test Item Bedside Glucose (test code = 35904-2) 120 70-120 Meter ID: [id number] Level 2019-07-10 07:06:00* Test Item Value Reference Range Interpretation Comments Sodium Level (test code = 2951-2) 139 136-145 [facility] Faxmk1514-15-59 07:06:00* Test Item Value Reference Range Interpretation Comments Potassium Level (test code = 2823-3) 3.3 3.5-5.1 [facility]loride Lijyx2287-76-44 07:06:00* Test Item Value Reference Range Interpretation Comments Chloride Level (test code = 2075-0) 102 98-107 [facility] Tyler[facility] Dioxide Tzisz3253-78-30 07:06:00* Test Item Value Reference Range Interpretation Comments Carbon Dioxide Level (test code = 2028-9) 28 22-29 [facility] Tyler[facility]ion Rls8653-26-05 07:06:00* Test Item Value Reference Range Interpretation Comments Anion Gap (test code = 54232-0) 12.3 8-16 [facility] Tyler[facility] Urea Dclbfowp9751-97-96 07:06:00* Test Item Value Reference Range Interpretation Comments Blood Urea Nitrogen (test code = 3094-0) 31 7-26 [facility] Tyler[facility]inine2020-04-12 07:06:00* Test Item Value Reference Range Interpretation Comments Creatinine (test code = 2160-0) 1.55 0.72-1.25 [facility]UN/Creatinine Efutl0733-10-56 07:06:00* Test Item Value Reference Range Interpretation Comments BUN/Creatinine Ratio (test code = 3097-3) 20 6-25 [facility] Tyler[facility]at Glomerular Filtration Rate 2019-07-10 07:06:00* Test Item Value Reference Range Interpretation Comments Estimat Glomerular Filtration Rate (test code = 336175815) 60 >60 Ranges were taken from the National Kidney Disease Education Program and the [facility] Kidney Foundation literature.Reference ranges:60 or greater: Mkwjdl76-99 ( for 3 consecutive months): Chronic kidney disease 15 or less: Kidney failureUT Health TylerGlucose Hfmwy6465-97-99 07:06:00* Test Item Value Reference Range Interpretation Comments Glucose Level (test code = JDL2005) 92 74-118 [facility] Tyler[facility]cium Fycnj7525-19-67 07:06:00* Test Item Value Reference Range Interpretation Comments Calcium Level (test code = 20577-6) 8.1 8.4-10.2 [facility] Tyler[facility]esium Liwld0434-04-55 06:53:00* Test Item Value Reference Range Interpretation Comments Magnesium Level (test code = 30973-6) 1.8 1.3-2.1 [facility] TylerWhite Blood Pcxzt1972-11-72 06:24:00* Test Item Value Reference Range Interpretation Comments White Blood Count (test code = 6690-2) 8.09 4.8-10.8 [facility] Tyler[facility] Blood Nxxrk2176-92-22 06:24:00* Test Item Value Reference Range Interpretation Comments Red Blood Count (test code = 789-8) 3.66 4.3-5.7 [facility] TylerHemoglobin2020-04-12 06:24:00* Test Item Value Reference Range Interpretation Comments Hemoglobin (test code = 58570-1) 10.1 14.0-18.0 [facility] TylerHematocrit2020-04-12 06:24:00* Test Item Value Reference Range Interpretation Comments Hematocrit (test code = 4544-3) 32.4 38.2-49.6 [facility] TylerMean Corpuscular Joocfk7981-30-36 06:24:00* Test Item Value Reference Range Interpretation Comments Mean Corpuscular Volume (test code = 787-2) 88.5 81-99 [facility] TylerMean Corpuscular Cdwhhtnxet2397-67-81 06:24:00* Test Item Value Reference Range Interpretation Comments Mean Corpuscular Hemoglobin (test code = 785-6) 27.6 28-32 [facility] TylerMean Corpuscular Hemoglobin Concent 2019-07-10 06:24:00* Test Item Value Reference Range Interpretation Comments Mean Corpuscular Hemoglobin Concent (test code = 786-4) 31.2 31-35 [facility] Tyler[facility] Cell Distribution Xkrfc2718-65-67 06:24:00* Test Item Value Reference Range Interpretation Comments Red Cell Distribution Width (test code = 50203-8) 13.8 11.7 -14.4 [facility] TylerPlatelet Wbexd3876-88-21 06:24:00* Test Item Value Reference Range Interpretation Comments Platelet Count (test code = 777-3) 191 140-360 [facility] TylerNeutrophils (%) (Auto)2019-07-10 06:24:00 * Test Item Value Reference Range Interpretation Comments Neutrophils (%) (Auto) (test code = 63040-4) 61.6 38.7-80.0 [facility] TylerLymphocytes (%) (Auto)2019-07-10 06:24:00 * Test Item Value Reference Range Interpretation Comments Lymphocytes (%) (Auto) (test code = 736-9) 26.7 18.0-39.1 [facility] Tyler[facility]ocytes (%) (Auto)2019-07-10 06:24:00* Test Item Value Reference Range Interpretation Comments Monocytes (%) (Auto) (test code = 5905-5) 10.3 4.4-11.3 [facility] Tyler[facility]osinophils (%) (Auto)2019-07-10 06:24:00 * Test Item Value Reference Range Interpretation Comments Eosinophils (%) (Auto) (test code = 713-8) 0.6 0.0-6.0 [facility]ophils (%) (Auto)2019-07-10 06:24:00* Test Item Value Reference Range Interpretation Comments Basophils (%) (Auto) (test code = 706-2) 0.6 0.0-1.0 [facility] TylerIM GRANULOCYTES %2019-07-10 06:24:00* Test Item Value Reference Range Interpretation Comments IM GRANULOCYTES % (test code = IM GRANULOCYTES %) 0.2 0.0- 1.0 [facility] TylerNeutrophils # (Auto)2019-07-10 06:24:00* Test Item Value Reference Range Interpretation Comments Neutrophils # (Auto) (test code = 751-8) 5.0 2.1-6.9 [facility] TylerLymphocytes # (Auto)2019-07-10 06:24:00* Test Item Value Reference Range Interpretation Comments Lymphocytes # (Auto) (test code = 20495-4) 2.2 1.0-3.2 [facility] TylerMonocytes # (Auto)2019-07-10 06:24:00* Test Item Value Reference Range Interpretation Comments Monocytes # (Auto) (test code = 742-7) 0.8 0.2-0.8 [facility]osinophils # (Auto)2019-07-10 06:24:00* Test Item Value Reference Range Interpretation Comments Eosinophils # (Auto) (test code = 711-2) 0.1 0.0-0.4 [facility]ophils # (Auto)2019-07-10 06:24:00* Test Item Value Reference Range Interpretation Comments Basophils # (Auto) (test code = 704-7) 0.1 0.0-0.1 [facility] TylerAbsolute Immature Granulocyte (auto 2019-07-10 06:24:00* Test Item Value Reference Range Interpretation Comments Absolute Immature Granulocyte (auto (zeenat t code = Absolute Immature Granulocyte (auto) 0.02 0-0.1 [facility] 08:55:00* Test Item Value Reference Range Interpretation Comments GLUBED (test code = GLUBED) 122 mg/dL 74-106 H Performed by certified ground transportation operator at [facility] HZPYHI1753-38-53 08:43:00* Test Item Value Reference Range Interpretation Comments GLUBED (test code = GLUBED) 140 mg/dL 74-106 H Performed by certified ground transportation operator at [facility] - XR SHOULDER 1 V [id number] 13:41:00 FAX: Jg Astudillo MD [phone] [place]: St: REG FAX: Riley Zavala [phone] Name: BREE ASHTON [facility] : 1975 Age/S: 43/M [address] [place] [address] Bl Unit #: [id number] Loc: [place] [address] Phys: Jg Astudillo MD Acct: [id number] Dis Date: Status: REG CLI PHONE #: [phone] Exam Date: 03/02/2019 1333 FAX #: [phone] Reason: PICC PLACEMENT EXAMS: CPT CODE: [id number] [place]R SHOULDER 1 [place] [address] 1 VIEW LEFT SHOULDER HISTORY: PICC line pl acement.. Left upper extremity PICC line present. Catheter tip pr ojects over the level of the inferior 3rd of the SVC. END IMPRESSION SL: [id number] at 1341 Reported and sig lizette by: Yusuf Brugos M.D. CC: Jg Astudillo MD; Zak Beckman DO Technologist: RT Rashida(Kelly) Trnscrd Date/Time/By: 03/02/2019 (3127) : By: MilaRTB Orig Print D/T: S: 03/02/2019 (7069) PAGE 1 Signed Report [id number] 08:06:00* Test Item Value Reference Range Interpretation Comments GLUBED (test code = GLUBED) 224 mg/dL 74-106 H Performed by certified ground transportation operator at [facility] [id number] 22:57:00* Test Item Value Reference Range Interpretation Comments GLUBED (test code = GLUBED) 62 mg/dL 74-106 L Performed by certified ground transportation operator at [facility] [id number] 18:14:00* Test Item Value Reference Range Interpretation Comments GLUBED (test code = GLUBED) 158 mg/dL 74-106 H Performed by certified ground transportation operator at [facility] QKGHFH2939-42-91 11:43:00* Test Item Value Reference Range Interpretation Comments GLUBED (test code = GLUBED) 123 mg/dL 74-106 H Performed by certified ground transportation operator at [facility] BASIC METABOLIC [id number] 11:04:00* Test Item Value Reference Range Interpretation Comments SODIUM (test code = NA) 138 mmol/L 136-145 N POTASSIUM (test code = K) 4.1 mmol/L 3.5-5.1 N CHLORIDE (test code = CL) 102.0 mmol/L 98-107 N CARBON DIOXIDE (test code = CO2) 30.0 mmol/L 21-32 N ANION GAP (test code = GAP) 10.1 10-20 N GLUCOSE (test code = GLU) 127 mg/dL 74-106 H BLOOD UREA NITROGEN (test code = BUN) 5 mg/dL 7-18 L GLOMERULAR FILTRATION RATE (test code = GFR) > 60 mL/min >=60 Estimated GFR by using Modified MDRD formula.Chronic kidney disease is defined as either kidney damageor GFR <60 mL/min/1.73 m2 for >3 months. CREATININE (test code = CREAT) 0.90 mg/dL 0.7-1.3 N BUN/CREATININE RATIO (test code = BUN/CREA) 5.8 10-20 L CALCIUM (test code = CA) 8.5 mg/dL 8.5-10.1 N BASIC METABOLIC [id number] 10:55:00* Test Item Value Reference Range Interpretation Comments SODIUM (test code = NA) 138 mmol/L 136-145 N POTASSIUM (test code = K) 4.1 mmol/L 3.5-5.1 N CHLORIDE (test code = CL) 102.0 mmol/L 98-107 N CARBON DIOXIDE (test code = CO2) mmol/L 21-32 ANION GAP (test code = GAP) 10-20 GLUCOSE (test code = GLU) mg/dL 74-106 BLOOD UREA NITROGEN (test code = BUN) mg/dL 7-18 GLOMERULAR FILTRATION RATE (test code = GFR) mL/min >=60 CREATININE (test code = CREAT) mg/dL 0.7-1.3 BUN/CREATININE RATIO (test code = BUN/CREA) 10-20 CALCIUM (test code = CA) mg/dL 8.5-10.1 CBC W/AUTO [id number] 10:13:00* Test Item Value Reference Range Interpretation Comments WHITE BLOOD CELL (test code = WBC) 10.4 K/mm3 4.5-12.5 N RED BLOOD CELL (test code = RBC) 2.91 mill/mm3 4.0-5.8 L HEMOGLOBIN (test code = HGB) 8.3 gram/dL 13.0-17.5 L HEMATOCRIT (test code = HCT) 25.6 % 42.0-52.0 L MEAN CELL VOLUME (test code = MCV) 88.0 fL 80-98 N MEAN CELL HGB (test code = MCH) 28.5 picogram 27.0-33.0 N MEAN CELL HGB CONCETRATION (test code = MCHC) 32.4 gram/dL 33.0-36. 0 L RED CELL DISTRIBUTION WIDTH (test code = RDW) 13.2 % 11.6-16. 2 N RED CELL DISTRIBUTION WIDTH SD (test code = RDW-SD) 42.4 fL 37 .0-51.0 N PLATELET COUNT (test code = PLT) 462 K/mm3 150-450 H MEAN PLATELET VOLUME (test code = MPV) 9.3 fL 6.7-11.0 N NEUTROPHIL % (test code = NT%) 70.2 % 39.0-69.0 H IMMATURE GRANULOCYTE % (test code = IG%) 0.9 % 0.0-5.0 N LYMPHOCYTE % (test code = LY%) 12.8 % 25.0-55.0 L MONOCYTE % (test code = MO%) 13.1 % 0.0-10.0 H EOSINOPHIL % (test code = EO%) 2.7 % 0.0-5.0 N BASOPHIL % (test code = BA%) 0.3 % 0.0-1.0 N NUCLEATED RBC % (test code = NRBC%) 0.0 % 0-0 N NEUTROPHIL # (test code = NT#) 7.32 K/mm3 1.8-7.7 N IMMATURE GRANULOCYTE # (test code = IG#) 0.09 x10 3/uL 0-0.03 H LYMPHOCYTE # (test code = LY#) 1.33 K/mm3 1.0-5.0 N MONOCYTE # (test code = MO#) 1.37 K/mm3 0-0.8 H EOSINOPHIL # (test code = EO#) 0.28 K/mm3 0.0-0.5 N BASOPHIL # (test code = BA#) 0.03 K/mm3 0.0-0.2 N NUCLEATED RBC # (test code = NRBC#) 0.00 K/mm3 0.0-0.1 N [id number] 08:19:00* Test Item Value Reference Range Interpretation Comments GLUBED (test code = GLUBED) 81 mg/dL 74-106 N Performed by certified ground transportation operator at [facility] [id number] 22:30:00* Test Item Value Reference Range Interpretation Comments GLUBED (test code = GLUBED) 243 mg/dL 74-106 H Performed by certified ground transportation operator at [facility] [id number] 17:17:00* Test Item Value Reference Range Interpretation Comments GLUBED (test code = GLUBED) 91 mg/dL 74-106 N Performed by certified ground transportation operator at [facility] BLOOD UREA [id number] 13:49:00* Test Item Value Reference Range Interpretation Comments BLOOD UREA NITROGEN (test code = BUN) 8 mg/dL 7-18 N 2 PHELBS GONE UP AND TRIED TO DRAW BLOOD PT SAID COME BACKINFORMED PAIGE LIU E4812 V.LAB.2 02/19/19 1037 [id number] 13:49:00* Test Item Value Reference Range Interpretation Comments CREATININE (test code = CREAT) 0.90 mg/dL 0.7-1.3 N 2 PHELBS GONE UP AND TRIED TO DRAW BLOOD PT SAID COME BACKINFORMED PAIGE LIU E4812 V.LAB.[facility] 02/19/19 1037 CBC W/AUTO [id number] 13:02:00* Test Item Value Reference Range Interpretation Comments WHITE BLOOD CELL (test code = WBC) 11.8 K/mm3 4.5-12.5 N RED BLOOD CELL (test code = RBC) 2.83 mill/mm3 4.0-5.8 L HEMOGLOBIN (test code = HGB) 7.9 gram/dL 13.0-17.5 L HEMATOCRIT (test code = HCT) 25.5 % 42.0-52.0 L MEAN CELL VOLUME (test code = MCV) 90.1 fL 80-98 N MEAN CELL HGB (test code = MCH) 27.9 picogram 27.0-33.0 N MEAN CELL HGB CONCETRATION (test code = MCHC) 31.0 gram/dL 33.0-36. 0 L RED CELL DISTRIBUTION WIDTH (test code = RDW) 12.9 % 11.6-16. 2 N RED CELL DISTRIBUTION WIDTH SD (test code = RDW-SD) 42.7 fL 37 .0-51.0 N PLATELET COUNT (test code = PLT) 471 K/mm3 150-450 H MEAN PLATELET VOLUME (test code = MPV) 9.0 fL 6.7-11.0 N NEUTROPHIL % (test code = NT%) 71.3 % 39.0-69.0 H IMMATURE GRANULOCYTE % (test code = IG%) 0.9 % 0.0-5.0 N LYMPHOCYTE % (test code = LY%) 13.1 % 25.0-55.0 L MONOCYTE % (test code = MO%) 12.3 % 0.0-10.0 H EOSINOPHIL % (test code = EO%) 2.1 % 0.0-5.0 N BASOPHIL % (test code = BA%) 0.3 % 0.0-1.0 N NUCLEATED RBC % (test code = NRBC%) 0.0 % 0-0 N NEUTROPHIL # (test code = NT#) 8.43 K/mm3 1.8-7.7 H IMMATURE GRANULOCYTE # (test code = IG#) 0.11 x10 3/uL 0-0.03 H LYMPHOCYTE # (test code = LY#) 1.55 K/mm3 1.0-5.0 N MONOCYTE # (test code = MO#) 1.46 K/mm3 0-0.8 H EOSINOPHIL # (test code = EO#) 0.25 K/mm3 0.0-0.5 N BASOPHIL # (test code = BA#) 0.04 K/mm3 0.0-0.2 N NUCLEATED RBC # (test code = NRBC#) 0.00 K/mm3 0.0-0.1 N PT TO COME BACK LATER NOTIFIED PAIGE [id number]/[id number]/ [id number] 11:50:00* Test Item Value Reference Range Interpretation Comments GLUBED (test code = GLUBED) 147 mg/dL 74-106 H Performed by certified ground transportation operator at [facility] [id number] 10:37:00* Test Item Value Reference Range Interpretation Comments GLUBED (test code = GLUBED) 97 mg/dL 74-106 N Performed by certified ground transportation operator at [facility] [id number] 21:43:00* Test Item Value Reference Range Interpretation Comments GLUBED (test code = GLUBED) 162 mg/dL 74-106 H Performed by certified ground transportation operator at [facility] [id number] 16:06:00* Test Item Value Reference Range Interpretation Comments GLUBED (test code = GLUBED) 98 mg/dL 74-106 N Performed by certified ground transportation operator at [facility] - XR CHEST 1 [id number] 14:36:00 FAX: Olegario Diaz MD [phone] [place]: B St: ADM FAX: Iris Liao [phone] FAX: Riley Zavala DO [phone] Name: BREE ASHTON [facility] : 1975 Age/S: 43/M [address] [facility] Unit #: [id number] Loc: V.3070 [place] [address] Phys: Iris Liao NP Acct: [id number] Dis Date: Status: ADM IN ONE #: [phone] Exam Date: 02/18/2019 1335 FAX #: [phone] Reason: PICC TIP CONFIRMATION EXAMS: CPT CODE: [id number] XR CHEST 1 V [id number] REASON FOR EXAM: PICC TIP CONFIRMATION Exam Order Date: 02/18/2019 12:37 PM Ordering M.D.: Iris Liao NP PROCEDURE: - XR CHEST 1 V COMPARISON: Frontal chest x-ray February 13, 2019 FINDINGS: Right upper extremity PICC terminates in the ca voatrial junction. There is an opacity in the left lung base that partly obscures the left hemidiaphragm. Remainder of the lungs are clear. Cardiomediastinal silhouette is normal in size for technique. The mediastinal contours are within normal limits. Musculoskeletal structures are within normal limits. The visualized upper abdomen is within normal limits. IMPRESSION: Right upper extremity PICC terminates in the cavoatrial junction. Left lung base opacity may represent any combination of pleural effusion, atelectasis, and consolidation. This is a new finding from the prior exam. Location: [facility] Electronically Signed by Mulugeta Espinoza MD on at 1436 Reported and signed by: Mulugeta Espinoza MD CC: Olegario Diaz MD; Iris Liao NP; Riley Beckman DO Technologist: Ngozi LYON(R); Lucie Martinez(R) Trnscrd Date/Time/By: 01/29 (4273) : By: [email or web address] Orig Print D/T: S: 02/18/2019 (8029) PAGE 1 Signed Report [id number] 12:20:00* Test Item Value Reference Range Interpretation Comments GLUBED (test code = GLUBED) 141 mg/dL 74-106 H Performed by certified ground transportation operator at [facility] [id number] 07:15:00* Test Item Value Reference Range Interpretation Comments GLUBED (test code = GLUBED) 129 mg/dL 74-106 H Performed by certified ground transportation operator at [facility] [id number] 00:21:00* Test Item Value Reference Range Interpretation Comments GLUBED (test code = GLUBED) 166 mg/dL 74-106 H Performed by certified ground transportation operator at [facility] [id number] 20:50:00* Test Item Value Reference Range Interpretation Comments GLUBED (test code = GLUBED) 194 mg/dL 74-106 H Performed by certified ground transportation operator at [facility] [id number] 18:19:00* Test Item Value Reference Range Interpretation Comments VANCOMYCIN (test code = VANCO) 25.9 UG/ML 5.0-45.0 N [id number] 16:41:00* Test Item Value Reference Range Interpretation Comments GLUBED (test code = GLUBED) 223 mg/dL 74-106 H Performed by certified ground transportation operator at [facility] [id number] 13:22:00* Test Item Value Reference Range Interpretation Comments GLUBED (test code = GLUBED) 95 mg/dL 74-106 N Performed by certified ground transportation operator at [facility] [id number] 13:22:00* Test Item Value Reference Range Interpretation Comments GLUBED (test code = GLUBED) 61 mg/dL 74-106 L Performed by certified ground transportation operator at [facility] [id number] 13:22:00* Test Item Value Reference Range Interpretation Comments GLUBED (test code = GLUBED) 32 mg/dL 74-106 LL Test performed as P.O.C. by nursing staff.Performed by certified ground transportation operator at [facility] [id number] 13:22:00* Test Item Value Reference Range Interpretation Comments GLUBED (test code = GLUBED) 28 mg/dL 74-106 LL Test performed as P.O.C. by nursing staff.[facility] Not[facility]~ [id number] 11:50:00* Test Item Value Reference Range Interpretation Comments GLUBED (test code = GLUBED) 104 mg/dL 74-106 N Performed by certified ground transportation operator at [facility] CBC W/MANUAL [id number] 09:27:00* Test Item Value Reference Range Interpretation Comments WHITE BLOOD CELL (test code = WBC) 18.0 K/mm3 4.5-12.5 H RED BLOOD CELL (test code = RBC) 2.90 mill/mm3 4.0-5.8 L HEMOGLOBIN (test code = HGB) 8.2 gram/dL 13.0-17.5 L HEMATOCRIT (test code = HCT) 25.1 % 42.0-52.0 L MEAN CELL VOLUME (test code = MCV) 86.6 fL 80-98 N MEAN CELL HGB (test code = MCH) 28.3 picogram 27.0-33.0 N MEAN CELL HGB CONCETRATION (test code = MCHC) 32.7 gram/dL 33.0-36. 0 L RED CELL DISTRIBUTION WIDTH (test code = RDW) 13.1 % 11.6-16. 2 N RED CELL DISTRIBUTION WIDTH SD (test code = RDW-SD) 41.1 fL 37 .0-51.0 N PLATELET COUNT (test code = PLT) 343 K/mm3 150-450 N MEAN PLATELET VOLUME (test code = MPV) 10.3 fL 6.7-11.0 N IMMATURE GRANULOCYTE % (test code = IG%) 0.7 % 0.0-5.0 N NUCLEATED RBC % (test code = NRBC%) 0.0 % 0-0 N NEUTROPHIL # (test code = NT#) 13.35 K/mm3 1.8-7.7 H IMMATURE GRANULOCYTE # (test code = IG#) 0.12 x10 3/uL 0-0.03 H LYMPHOCYTE # (test code = LY#) 1.35 K/mm3 1.0-5.0 N MONOCYTE # (test code = MO#) 2.94 K/mm3 0-0.8 H EOSINOPHIL # (test code = EO#) 0.19 K/mm3 0.0-0.5 N BASOPHIL # (test code = BA#) 0.04 K/mm3 0.0-0.2 N NUCLEATED RBC # (test code = NRBC#) 0.00 K/mm3 0.0-0.1 N MANUAL DIFF REQUIRED (test code = MDIFF) YES STAIN ACCEPTABILITY (test code = STN ACCEPTABLE) STAIN ACCEPTABLE TOTAL CELLS COUNTED (test code = TCC) 114 #CELLS SEGMENTED NEUTROPHILS (test code = SEG) 78.1 % 39-69 H BAND NEUTROPHIL (test code = BAND) 0.9 % 0-10 N LYMPHOCYTE (test code = LYMPH) 5.2 % 25-55 L REACTIVE LYMPH (test code = RELYMPH) 0 % MONOCYTE (test code = MON) 14.0 % 0-10 H EOSINOPHIL (test code = EOS) 0 % 0.0-5.0 N BASOPHIL (test code = BASO) 0.9 % 0-1.0 N METAMYELOCYTE (test code = META) 0 % 0-0 N MYELOCYTE (test code = MYELO) 0.9 % 0.0-0.0 H PROMYELOCYTE (test code = PROM) 0 % 0-0 N POLYCHROMASIA (test code = POLC) 1+ HYPOCHROMIA (test code = HYPO) 1+ POIKILOCYTOSIS (test code = POIK) 1+ ANISOCYTOSIS (test code = ANISO) 1+ PLATELET ESTIMATE (test code = PLTEST) ADEQUATE PLATELET MORPHOLOGY (test code = PLTMORPH) SIZE VARIABLE IMMATURE FORMS (test code = IMMAT) 0 % 0-0 N [id number] 07:51:00* Test Item Value Reference Range Interpretation Comments GLUBED (test code = GLUBED) 244 mg/dL 74-106 H Performed by certified ground transportation operator at [facility] BASIC METABOLIC [id number] 07:23:00* Test Item Value Reference Range Interpretation Comments SODIUM (test code = NA) 139 mmol/L 136-145 N POTASSIUM (test code = K) 3.3 mmol/L 3.5-5.1 L CHLORIDE (test code = CL) 101.0 mmol/L 98-107 N CARBON DIOXIDE (test code = CO2) 32.0 mmol/L 21-32 N ANION GAP (test code = GAP) 9.3 10-20 L GLUCOSE (test code = GLU) 283 mg/dL 74-106 H BLOOD UREA NITROGEN (test code = BUN) 4 mg/dL 7-18 L GLOMERULAR FILTRATION RATE (test code = GFR) > 60 mL/min >=60 Estimated GFR by using Modified MDRD formula.Chronic kidney disease is defined as either kidney damageor GFR <60 mL/min/1.73 m2 for >3 months. CREATININE (test code = CREAT) 1.00 mg/dL 0.7-1.3 N BUN/CREATININE RATIO (test code = BUN/CREA) 4.2 10-20 L CALCIUM (test code = CA) 7.9 mg/dL 8.5-10.1 L BASIC METABOLIC [id number] 07:13:00* Test Item Value Reference Range Interpretation Comments SODIUM (test code = NA) 139 mmol/L 136-145 N POTASSIUM (test code = K) 3.3 mmol/L 3.5-5.1 L CHLORIDE (test code = CL) 101.0 mmol/L 98-107 N CARBON DIOXIDE (test code = CO2) mmol/L 21-32 ANION GAP (test code = GAP) 10-20 GLUCOSE (test code = GLU) mg/dL 74-106 BLOOD UREA NITROGEN (test code = BUN) mg/dL 7-18 GLOMERULAR FILTRATION RATE (test code = GFR) mL/min >=60 CREATININE (test code = CREAT) mg/dL 0.7-1.3 BUN/CREATININE RATIO (test code = BUN/CREA) 10-20 CALCIUM (test code = CA) mg/dL 8.5-10.1 CBC W/MANUAL [id number] 07:10:00* Test Item Value Reference Range Interpretation Comments WHITE BLOOD CELL (test code = WBC) 18.0 K/mm3 4.5-12.5 H RED BLOOD CELL (test code = RBC) 2.90 mill/mm3 4.0-5.8 L HEMOGLOBIN (test code = HGB) 8.2 gram/dL 13.0-17.5 L HEMATOCRIT (test code = HCT) 25.1 % 42.0-52.0 L MEAN CELL VOLUME (test code = MCV) 86.6 fL 80-98 N MEAN CELL HGB (test code = MCH) 28.3 picogram 27.0-33.0 N MEAN CELL HGB CONCETRATION (test code = MCHC) 32.7 gram/dL 33.0-36. 0 L RED CELL DISTRIBUTION WIDTH (test code = RDW) 13.1 % 11.6-16. 2 N RED CELL DISTRIBUTION WIDTH SD (test code = RDW-SD) 41.1 fL 37 .0-51.0 N PLATELET COUNT (test code = PLT) 343 K/mm3 150-450 N MEAN PLATELET VOLUME (test code = MPV) 10.3 fL 6.7-11.0 N IMMATURE GRANULOCYTE % (test code = IG%) 0.7 % 0.0-5.0 N NUCLEATED RBC % (test code = NRBC%) 0.0 % 0-0 N NEUTROPHIL # (test code = NT#) 13.35 K/mm3 1.8-7.7 H IMMATURE GRANULOCYTE # (test code = IG#) 0.12 x10 3/uL 0-0.03 H LYMPHOCYTE # (test code = LY#) 1.35 K/mm3 1.0-5.0 N MONOCYTE # (test code = MO#) 2.94 K/mm3 0-0.8 H EOSINOPHIL # (test code = EO#) 0.19 K/mm3 0.0-0.5 N BASOPHIL # (test code = BA#) 0.04 K/mm3 0.0-0.2 N NUCLEATED RBC # (test code = NRBC#) 0.00 K/mm3 0.0-0.1 N MANUAL DIFF REQUIRED (test code = MDIFF) YES STAIN ACCEPTABILITY (test code = STN ACCEPTABLE) TOTAL CELLS COUNTED (test code = TCC) #CELLS SEGMENTED NEUTROPHILS (test code = SEG) % 39-69 LYMPHOCYTE (test code = LYMPH) % 25-55 MONOCYTE (test code = MON) % 0-10 EOSINOPHIL (test code = EOS) % 0.0-5.0 CABOT RINGS (test code = CAB) MORPHOLOGY COMMENT (test code = MOC) PLATELET ESTIMATE (test code = PLTEST) PLATELET MORPHOLOGY (test code = PLTMORPH) CBC W/MANUAL [id number] 07:10:00* Test Item Value Reference Range Interpretation Comments WHITE BLOOD CELL (test code = WBC) 18.0 K/mm3 4.5-12.5 H RED BLOOD CELL (test code = RBC) 2.90 mill/mm3 4.0-5.8 L HEMOGLOBIN (test code = HGB) 8.2 gram/dL 13.0-17.5 L HEMATOCRIT (test code = HCT) 25.1 % 42.0-52.0 L MEAN CELL VOLUME (test code = MCV) 86.6 fL 80-98 N MEAN CELL HGB (test code = MCH) 28.3 picogram 27.0-33.0 N MEAN CELL HGB CONCETRATION (test code = MCHC) 32.7 gram/dL 33.0-36. 0 L RED CELL DISTRIBUTION WIDTH (test code = RDW) 13.1 % 11.6-16. 2 N RED CELL DISTRIBUTION WIDTH SD (test code = RDW-SD) 41.1 fL 37 .0-51.0 N PLATELET COUNT (test code = PLT) 343 K/mm3 150-450 N MEAN PLATELET VOLUME (test code = MPV) 10.3 fL 6.7-11.0 N IMMATURE GRANULOCYTE % (test code = IG%) 0.7 % 0.0-5.0 N NUCLEATED RBC % (test code = NRBC%) 0.0 % 0-0 N NEUTROPHIL # (test code = NT#) 13.35 K/mm3 1.8-7.7 H IMMATURE GRANULOCYTE # (test code = IG#) 0.12 x10 3/uL 0-0.03 H LYMPHOCYTE # (test code = LY#) 1.35 K/mm3 1.0-5.0 N MONOCYTE # (test code = MO#) 2.94 K/mm3 0-0.8 H EOSINOPHIL # (test code = EO#) 0.19 K/mm3 0.0-0.5 N BASOPHIL # (test code = BA#) 0.04 K/mm3 0.0-0.2 N NUCLEATED RBC # (test code = NRBC#) 0.00 K/mm3 0.0-0.1 N MANUAL DIFF REQUIRED (test code = MDIFF) YES STAIN ACCEPTABILITY (test code = STN ACCEPTABLE) TOTAL CELLS COUNTED (test code = TCC) #CELLS SEGMENTED NEUTROPHILS (test code = SEG) % 39-69 LYMPHOCYTE (test code = LYMPH) % 25-55 MONOCYTE (test code = MON) % 0-10 EOSINOPHIL (test code = EOS) % 0.0-5.0 MORPHOLOGY COMMENT (test code = MOC) PLATELET ESTIMATE (test code = PLTEST) PLATELET MORPHOLOGY (test code = PLTMORPH) CBC W/MANUAL [id number] 07:10:00* Test Item Value Reference Range Interpretation Comments WHITE BLOOD CELL (test code = WBC) 18.0 K/mm3 4.5-12.5 H RED BLOOD CELL (test code = RBC) 2.90 mill/mm3 4.0-5.8 L HEMOGLOBIN (test code = HGB) 8.2 gram/dL 13.0-17.5 L HEMATOCRIT (test code = HCT) 25.1 % 42.0-52.0 L MEAN CELL VOLUME (test code = MCV) 86.6 fL 80-98 N MEAN CELL HGB (test code = MCH) 28.3 picogram 27.0-33.0 N MEAN CELL HGB CONCETRATION (test code = MCHC) 32.7 gram/dL 33.0-36. 0 L RED CELL DISTRIBUTION WIDTH (test code = RDW) 13.1 % 11.6-16. 2 N RED CELL DISTRIBUTION WIDTH SD (test code = RDW-SD) 41.1 fL 37 .0-51.0 N PLATELET COUNT (test code = PLT) 343 K/mm3 150-450 N MEAN PLATELET VOLUME (test code = MPV) 10.3 fL 6.7-11.0 N IMMATURE GRANULOCYTE % (test code = IG%) 0.7 % 0.0-5.0 N NUCLEATED RBC % (test code = NRBC%) 0.0 % 0-0 N NEUTROPHIL # (test code = NT#) 13.35 K/mm3 1.8-7.7 H IMMATURE GRANULOCYTE # (test code = IG#) 0.12 x10 3/uL 0-0.03 H LYMPHOCYTE # (test code = LY#) 1.35 K/mm3 1.0-5.0 N MONOCYTE # (test code = MO#) 2.94 K/mm3 0-0.8 H EOSINOPHIL # (test code = EO#) 0.19 K/mm3 0.0-0.5 N BASOPHIL # (test code = BA#) 0.04 K/mm3 0.0-0.2 N NUCLEATED RBC # (test code = NRBC#) 0.00 K/mm3 0.0-0.1 N MANUAL DIFF REQUIRED (test code = MDIFF) YES STAIN ACCEPTABILITY (test code = STN ACCEPTABLE) TOTAL CELLS COUNTED (test code = TCC) #CELLS SEGMENTED NEUTROPHILS (test code = SEG) % 39-69 LYMPHOCYTE (test code = LYMPH) % 25-55 MONOCYTE (test code = MON) % 0-10 MORPHOLOGY COMMENT (test code = MOC) PLATELET ESTIMATE (test code = PLTEST) PLATELET MORPHOLOGY (test code = PLTMORPH) CBC W/MANUAL [id number] 07:09:00* Test Item Value Reference Range Interpretation Comments WHITE BLOOD CELL (test code = WBC) 18.0 K/mm3 4.5-12.5 H RED BLOOD CELL (test code = RBC) 2.90 mill/mm3 4.0-5.8 L HEMOGLOBIN (test code = HGB) 8.2 gram/dL 13.0-17.5 L HEMATOCRIT (test code = HCT) 25.1 % 42.0-52.0 L MEAN CELL VOLUME (test code = MCV) 86.6 fL 80-98 N MEAN CELL HGB (test code = MCH) 28.3 picogram 27.0-33.0 N MEAN CELL HGB CONCETRATION (test code = MCHC) 32.7 gram/dL 33.0-36. 0 L RED CELL DISTRIBUTION WIDTH (test code = RDW) 13.1 % 11.6-16. 2 N RED CELL DISTRIBUTION WIDTH SD (test code = RDW-SD) 41.1 fL 37 .0-51.0 N PLATELET COUNT (test code = PLT) 343 K/mm3 150-450 N MEAN PLATELET VOLUME (test code = MPV) 10.3 fL 6.7-11.0 N IMMATURE GRANULOCYTE % (test code = IG%) 0.7 % 0.0-5.0 N NUCLEATED RBC % (test code = NRBC%) 0.0 % 0-0 N NEUTROPHIL # (test code = NT#) 13.35 K/mm3 1.8-7.7 H IMMATURE GRANULOCYTE # (test code = IG#) 0.12 x10 3/uL 0-0.03 H LYMPHOCYTE # (test code = LY#) 1.35 K/mm3 1.0-5.0 N MONOCYTE # (test code = MO#) 2.94 K/mm3 0-0.8 H EOSINOPHIL # (test code = EO#) 0.19 K/mm3 0.0-0.5 N BASOPHIL # (test code = BA#) 0.04 K/mm3 0.0-0.2 N NUCLEATED RBC # (test code = NRBC#) 0.00 K/mm3 0.0-0.1 N MANUAL DIFF REQUIRED (test code = MDIFF) YES STAIN ACCEPTABILITY (test code = STN ACCEPTABLE) TOTAL CELLS COUNTED (test code = TCC) #CELLS SEGMENTED NEUTROPHILS (test code = SEG) % 39-69 LYMPHOCYTE (test code = LYMPH) % 25-55 MONOCYTE (test code = MON) % 0-10 EOSINOPHIL (test code = EOS) % 0.0-5.0 CABOT RINGS (test code = CAB) MORPHOLOGY COMMENT (test code = MOC) PLATELET ESTIMATE (test code = PLTEST) PLATELET MORPHOLOGY (test code = PLTMORPH) CBC W/MANUAL [id number] 07:09:00* Test Item Value Reference Range Interpretation Comments WHITE BLOOD CELL (test code = WBC) 18.0 K/mm3 4.5-12.5 H RED BLOOD CELL (test code = RBC) 2.90 mill/mm3 4.0-5.8 L HEMOGLOBIN (test code = HGB) 8.2 gram/dL 13.0-17.5 L HEMATOCRIT (test code = HCT) 25.1 % 42.0-52.0 L MEAN CELL VOLUME (test code = MCV) 86.6 fL 80-98 N MEAN CELL HGB (test code = MCH) 28.3 picogram 27.0-33.0 N MEAN CELL HGB CONCETRATION (test code = MCHC) 32.7 gram/dL 33.0-36. 0 L RED CELL DISTRIBUTION WIDTH (test code = RDW) 13.1 % 11.6-16. 2 N RED CELL DISTRIBUTION WIDTH SD (test code = RDW-SD) 41.1 fL 37 .0-51.0 N PLATELET COUNT (test code = PLT) 343 K/mm3 150-450 N MEAN PLATELET VOLUME (test code = MPV) 10.3 fL 6.7-11.0 N IMMATURE GRANULOCYTE % (test code = IG%) 0.7 % 0.0-5.0 N NUCLEATED RBC % (test code = NRBC%) 0.0 % 0-0 N NEUTROPHIL # (test code = NT#) 13.35 K/mm3 1.8-7.7 H IMMATURE GRANULOCYTE # (test code = IG#) 0.12 x10 3/uL 0-0.03 H LYMPHOCYTE # (test code = LY#) 1.35 K/mm3 1.0-5.0 N MONOCYTE # (test code = MO#) 2.94 K/mm3 0-0.8 H EOSINOPHIL # (test code = EO#) 0.19 K/mm3 0.0-0.5 N BASOPHIL # (test code = BA#) 0.04 K/mm3 0.0-0.2 N NUCLEATED RBC # (test code = NRBC#) 0.00 K/mm3 0.0-0.1 N MANUAL DIFF REQUIRED (test code = MDIFF) YES STAIN ACCEPTABILITY (test code = STN ACCEPTABLE) TOTAL CELLS COUNTED (test code = TCC) #CELLS SEGMENTED NEUTROPHILS (test code = SEG) % 39-69 LYMPHOCYTE (test code = LYMPH) % 25-55 MONOCYTE (test code = MON) % 0-10 EOSINOPHIL (test code = EOS) % 0.0-5.0 CABOT RINGS (test code = CAB) MORPHOLOGY COMMENT (test code = MOC) PLATELET ESTIMATE (test code = PLTEST) PLATELET MORPHOLOGY (test code = PLTMORPH) SED RATE [id number] 21:42:00* Test Item Value Reference Range Interpretation Comments SED RATE WESTERGREN (test code = SEDW) 76 mm/hr 0-15 H SED [id number] 21:42:00* Test Item Value Reference Range Interpretation Comments SED RATE (test code = SEDW) 76 mm/hr 0-15 H WINTROBE METHOD: NORMAL RANGE FOR MEN: 0-9 MM/HR WOMAN: 0-20 MM/HR [id number] 20:54:00* Test Item Value Reference Range Interpretation Comments GLUBED (test code = GLUBED) 345 mg/dL 74-106 H Performed by certified ground transportation operator at [facility] [id number] 16:36:00* Test Item Value Reference Range Interpretation Comments GLUBED (test code = GLUBED) 37 mg/dL 74-106 LL Performed by certified ground transportation operator at [facility] [id number] 16:30:00* Test Item Value Reference Range Interpretation Comments GLUBED (test code = GLUBED) 94 mg/dL 74-106 N Performed by certified ground transportation operator at [facility] [id number] 12:04:00* Test Item Value Reference Range Interpretation Comments GLUBED (test code = GLUBED) 236 mg/dL 74-106 H Performed by certified ground transportation operator at [facility] CBC W/MANUAL [id number] 08:49:00* Test Item Value Reference Range Interpretation Comments WHITE BLOOD CELL (test code = WBC) 19.8 K/mm3 4.5-12.5 H RED BLOOD CELL (test code = RBC) 3.27 mill/mm3 4.0-5.8 L HEMOGLOBIN (test code = HGB) 9.1 gram/dL 13.0-17.5 L HEMATOCRIT (test code = HCT) 28.4 % 42.0-52.0 L MEAN CELL VOLUME (test code = MCV) 86.9 fL 80-98 N MEAN CELL HGB (test code = MCH) 27.8 picogram 27.0-33.0 N MEAN CELL HGB CONCETRATION (test code = MCHC) 32.0 gram/dL 33.0-36. 0 L RED CELL DISTRIBUTION WIDTH (test code = RDW) 13.0 % 11.6-16. 2 N RED CELL DISTRIBUTION WIDTH SD (test code = RDW-SD) 41.2 fL 37 .0-51.0 N PLATELET COUNT (test code = PLT) 321 K/mm3 150-450 N MEAN PLATELET VOLUME (test code = MPV) 9.9 fL 6.7-11.0 N IMMATURE GRANULOCYTE % (test code = IG%) 0.8 % 0.0-5.0 N NUCLEATED RBC % (test code = NRBC%) 0.0 % 0-0 N NEUTROPHIL # (test code = NT#) 15.22 K/mm3 1.8-7.7 H IMMATURE GRANULOCYTE # (test code = IG#) 0.15 x10 3/uL 0-0.03 H LYMPHOCYTE # (test code = LY#) 1.47 K/mm3 1.0-5.0 N MONOCYTE # (test code = MO#) 2.77 K/mm3 0-0.8 H EOSINOPHIL # (test code = EO#) 0.15 K/mm3 0.0-0.5 N BASOPHIL # (test code = BA#) 0.06 K/mm3 0.0-0.2 N NUCLEATED RBC # (test code = NRBC#) 0.00 K/mm3 0.0-0.1 N MANUAL DIFF REQUIRED (test code = MDIFF) YES STAIN ACCEPTABILITY (test code = STN ACCEPTABLE) STAIN ACCEPTABLE TOTAL CELLS COUNTED (test code = TCC) 114 #CELLS SEGMENTED NEUTROPHILS (test code = SEG) 86.0 % 39-69 H BAND NEUTROPHIL (test code = BAND) 0 % 0-10 N LYMPHOCYTE (test code = LYMPH) 6.1 % 25-55 L REACTIVE LYMPH (test code = RELYMPH) 0 % MONOCYTE (test code = MON) 5.3 % 0-10 N EOSINOPHIL (test code = EOS) 2.6 % 0.0-5.0 N BASOPHIL (test code = BASO) 0 % 0-1.0 N METAMYELOCYTE (test code = META) 0 % 0-0 N MYELOCYTE (test code = MYELO) 0 % 0.0-0.0 N PROMYELOCYTE (test code = PROM) 0 % 0-0 N PLATELET ESTIMATE (test code = PLTEST) ADEQUATE PLATELET MORPHOLOGY (test code = PLTMORPH) NORMAL IMMATURE FORMS (test code = IMMAT) 0 % 0-0 N BASIC METABOLIC [id number] 08:29:00* Test Item Value Reference Range Interpretation Comments SODIUM (test code = NA) 135 mmol/L 136-145 L POTASSIUM (test code = K) 3.5 mmol/L 3.5-5.1 N CHLORIDE (test code = CL) 98.0 mmol/L 98-107 N CARBON DIOXIDE (test code = CO2) 30.0 mmol/L 21-32 N ANION GAP (test code = GAP) 10.5 10-20 N GLUCOSE (test code = GLU) 325 mg/dL 74-106 H BLOOD UREA NITROGEN (test code = BUN) 6 mg/dL 7-18 L GLOMERULAR FILTRATION RATE (test code = GFR) > 60 mL/min >=60 Estimated GFR by using Modified MDRD formula.Chronic kidney disease is defined as either kidney damageor GFR <60 mL/min/1.73 m2 for >3 months. CREATININE (test code = CREAT) 1.00 mg/dL 0.7-1.3 N BUN/CREATININE RATIO (test code = BUN/CREA) 6.1 10-20 L CALCIUM (test code = CA) 7.9 mg/dL 8.5-10.1 L CBC W/MANUAL [id number] 08:09:00* Test Item Value Reference Range Interpretation Comments WHITE BLOOD CELL (test code = WBC) 19.8 K/mm3 4.5-12.5 H RED BLOOD CELL (test code = RBC) 3.27 mill/mm3 4.0-5.8 L HEMOGLOBIN (test code = HGB) 9.1 gram/dL 13.0-17.5 L HEMATOCRIT (test code = HCT) 28.4 % 42.0-52.0 L MEAN CELL VOLUME (test code = MCV) 86.9 fL 80-98 N MEAN CELL HGB (test code = MCH) 27.8 picogram 27.0-33.0 N MEAN CELL HGB CONCETRATION (test code = MCHC) 32.0 gram/dL 33.0-36. 0 L RED CELL DISTRIBUTION WIDTH (test code = RDW) 13.0 % 11.6-16. 2 N RED CELL DISTRIBUTION WIDTH SD (test code = RDW-SD) 41.2 fL 37 .0-51.0 N PLATELET COUNT (test code = PLT) 321 K/mm3 150-450 N MEAN PLATELET VOLUME (test code = MPV) 9.9 fL 6.7-11.0 N IMMATURE GRANULOCYTE % (test code = IG%) 0.8 % 0.0-5.0 N NUCLEATED RBC % (test code = NRBC%) 0.0 % 0-0 N NEUTROPHIL # (test code = NT#) 15.22 K/mm3 1.8-7.7 H IMMATURE GRANULOCYTE # (test code = IG#) 0.15 x10 3/uL 0-0.03 H LYMPHOCYTE # (test code = LY#) 1.47 K/mm3 1.0-5.0 N MONOCYTE # (test code = MO#) 2.77 K/mm3 0-0.8 H EOSINOPHIL # (test code = EO#) 0.15 K/mm3 0.0-0.5 N BASOPHIL # (test code = BA#) 0.06 K/mm3 0.0-0.2 N NUCLEATED RBC # (test code = NRBC#) 0.00 K/mm3 0.0-0.1 N MANUAL DIFF REQUIRED (test code = MDIFF) YES STAIN ACCEPTABILITY (test code = STN ACCEPTABLE) TOTAL CELLS COUNTED (test code = TCC) #CELLS SEGMENTED NEUTROPHILS (test code = SEG) % 39-69 LYMPHOCYTE (test code = LYMPH) % 25-55 MONOCYTE (test code = MON) % 0-10 EOSINOPHIL (test code = EOS) % 0.0-5.0 CABOT RINGS (test code = CAB) MORPHOLOGY COMMENT (test code = MOC) PLATELET ESTIMATE (test code = PLTEST) PLATELET MORPHOLOGY (test code = PLTMORPH) CBC W/MANUAL [id number] 08:09:00* Test Item Value Reference Range Interpretation Comments WHITE BLOOD CELL (test code = WBC) 19.8 K/mm3 4.5-12.5 H RED BLOOD CELL (test code = RBC) 3.27 mill/mm3 4.0-5.8 L HEMOGLOBIN (test code = HGB) 9.1 gram/dL 13.0-17.5 L HEMATOCRIT (test code = HCT) 28.4 % 42.0-52.0 L MEAN CELL VOLUME (test code = MCV) 86.9 fL 80-98 N MEAN CELL HGB (test code = MCH) 27.8 picogram 27.0-33.0 N MEAN CELL HGB CONCETRATION (test code = MCHC) 32.0 gram/dL 33.0-36. 0 L RED CELL DISTRIBUTION WIDTH (test code = RDW) 13.0 % 11.6-16. 2 N RED CELL DISTRIBUTION WIDTH SD (test code = RDW-SD) 41.2 fL 37 .0-51.0 N PLATELET COUNT (test code = PLT) 321 K/mm3 150-450 N MEAN PLATELET VOLUME (test code = MPV) 9.9 fL 6.7-11.0 N IMMATURE GRANULOCYTE % (test code = IG%) 0.8 % 0.0-5.0 N NUCLEATED RBC % (test code = NRBC%) 0.0 % 0-0 N NEUTROPHIL # (test code = NT#) 15.22 K/mm3 1.8-7.7 H IMMATURE GRANULOCYTE # (test code = IG#) 0.15 x10 3/uL 0-0.03 H LYMPHOCYTE # (test code = LY#) 1.47 K/mm3 1.0-5.0 N MONOCYTE # (test code = MO#) 2.77 K/mm3 0-0.8 H EOSINOPHIL # (test code = EO#) 0.15 K/mm3 0.0-0.5 N BASOPHIL # (test code = BA#) 0.06 K/mm3 0.0-0.2 N NUCLEATED RBC # (test code = NRBC#) 0.00 K/mm3 0.0-0.1 N MANUAL DIFF REQUIRED (test code = MDIFF) YES STAIN ACCEPTABILITY (test code = STN ACCEPTABLE) TOTAL CELLS COUNTED (test code = TCC) #CELLS SEGMENTED NEUTROPHILS (test code = SEG) % 39-69 LYMPHOCYTE (test code = LYMPH) % 25-55 MONOCYTE (test code = MON) % 0-10 EOSINOPHIL (test code = EOS) % 0.0-5.0 CABOT RINGS (test code = CAB) MORPHOLOGY COMMENT (test code = MOC) PLATELET ESTIMATE (test code = PLTEST) PLATELET MORPHOLOGY (test code = PLTMORPH) CBC W/MANUAL [id number] 08:09:00* Test Item Value Reference Range Interpretation Comments WHITE BLOOD CELL (test code = WBC) 19.8 K/mm3 4.5-12.5 H RED BLOOD CELL (test code = RBC) 3.27 mill/mm3 4.0-5.8 L HEMOGLOBIN (test code = HGB) 9.1 gram/dL 13.0-17.5 L HEMATOCRIT (test code = HCT) 28.4 % 42.0-52.0 L MEAN CELL VOLUME (test code = MCV) 86.9 fL 80-98 N MEAN CELL HGB (test code = MCH) 27.8 picogram 27.0-33.0 N MEAN CELL HGB CONCETRATION (test code = MCHC) 32.0 gram/dL 33.0-36. 0 L RED CELL DISTRIBUTION WIDTH (test code = RDW) 13.0 % 11.6-16. 2 N RED CELL DISTRIBUTION WIDTH SD (test code = RDW-SD) 41.2 fL 37 .0-51.0 N PLATELET COUNT (test code = PLT) 321 K/mm3 150-450 N MEAN PLATELET VOLUME (test code = MPV) 9.9 fL 6.7-11.0 N IMMATURE GRANULOCYTE % (test code = IG%) 0.8 % 0.0-5.0 N NUCLEATED RBC % (test code = NRBC%) 0.0 % 0-0 N NEUTROPHIL # (test code = NT#) 15.22 K/mm3 1.8-7.7 H IMMATURE GRANULOCYTE # (test code = IG#) 0.15 x10 3/uL 0-0.03 H LYMPHOCYTE # (test code = LY#) 1.47 K/mm3 1.0-5.0 N MONOCYTE # (test code = MO#) 2.77 K/mm3 0-0.8 H EOSINOPHIL # (test code = EO#) 0.15 K/mm3 0.0-0.5 N BASOPHIL # (test code = BA#) 0.06 K/mm3 0.0-0.2 N NUCLEATED RBC # (test code = NRBC#) 0.00 K/mm3 0.0-0.1 N MANUAL DIFF REQUIRED (test code = MDIFF) YES STAIN ACCEPTABILITY (test code = STN ACCEPTABLE) TOTAL CELLS COUNTED (test code = TCC) #CELLS SEGMENTED NEUTROPHILS (test code = SEG) % 39-69 LYMPHOCYTE (test code = LYMPH) % 25-55 MONOCYTE (test code = MON) % 0-10 EOSINOPHIL (test code = EOS) % 0.0-5.0 MORPHOLOGY COMMENT (test code = MOC) PLATELET ESTIMATE (test code = PLTEST) PLATELET MORPHOLOGY (test code = PLTMORPH) CBC W/MANUAL [id number] 08:09:00* Test Item Value Reference Range Interpretation Comments WHITE BLOOD CELL (test code = WBC) 19.8 K/mm3 4.5-12.5 H RED BLOOD CELL (test code = RBC) 3.27 mill/mm3 4.0-5.8 L HEMOGLOBIN (test code = HGB) 9.1 gram/dL 13.0-17.5 L HEMATOCRIT (test code = HCT) 28.4 % 42.0-52.0 L MEAN CELL VOLUME (test code = MCV) 86.9 fL 80-98 N MEAN CELL HGB (test code = MCH) 27.8 picogram 27.0-33.0 N MEAN CELL HGB CONCETRATION (test code = MCHC) 32.0 gram/dL 33.0-36. 0 L RED CELL DISTRIBUTION WIDTH (test code = RDW) 13.0 % 11.6-16. 2 N RED CELL DISTRIBUTION WIDTH SD (test code = RDW-SD) 41.2 fL 37 .0-51.0 N PLATELET COUNT (test code = PLT) 321 K/mm3 150-450 N MEAN PLATELET VOLUME (test code = MPV) 9.9 fL 6.7-11.0 N IMMATURE GRANULOCYTE % (test code = IG%) 0.8 % 0.0-5.0 N NUCLEATED RBC % (test code = NRBC%) 0.0 % 0-0 N NEUTROPHIL # (test code = NT#) 15.22 K/mm3 1.8-7.7 H IMMATURE GRANULOCYTE # (test code = IG#) 0.15 x10 3/uL 0-0.03 H LYMPHOCYTE # (test code = LY#) 1.47 K/mm3 1.0-5.0 N MONOCYTE # (test code = MO#) 2.77 K/mm3 0-0.8 H EOSINOPHIL # (test code = EO#) 0.15 K/mm3 0.0-0.5 N BASOPHIL # (test code = BA#) 0.06 K/mm3 0.0-0.2 N NUCLEATED RBC # (test code = NRBC#) 0.00 K/mm3 0.0-0.1 N MANUAL DIFF REQUIRED (test code = MDIFF) YES STAIN ACCEPTABILITY (test code = STN ACCEPTABLE) TOTAL CELLS COUNTED (test code = TCC) #CELLS SEGMENTED NEUTROPHILS (test code = SEG) % 39-69 LYMPHOCYTE (test code = LYMPH) % 25-55 MONOCYTE (test code = MON) % 0-10 MORPHOLOGY COMMENT (test code = MOC) PLATELET ESTIMATE (test code = PLTEST) PLATELET MORPHOLOGY (test code = PLTMORPH) CBC W/MANUAL [id number] 08:09:00* Test Item Value Reference Range Interpretation Comments WHITE BLOOD CELL (test code = WBC) 19.8 K/mm3 4.5-12.5 H RED BLOOD CELL (test code = RBC) 3.27 mill/mm3 4.0-5.8 L HEMOGLOBIN (test code = HGB) 9.1 gram/dL 13.0-17.5 L HEMATOCRIT (test code = HCT) 28.4 % 42.0-52.0 L MEAN CELL VOLUME (test code = MCV) 86.9 fL 80-98 N MEAN CELL HGB (test code = MCH) 27.8 picogram 27.0-33.0 N MEAN CELL HGB CONCETRATION (test code = MCHC) 32.0 gram/dL 33.0-36. 0 L RED CELL DISTRIBUTION WIDTH (test code = RDW) 13.0 % 11.6-16. 2 N RED CELL DISTRIBUTION WIDTH SD (test code = RDW-SD) 41.2 fL 37 .0-51.0 N PLATELET COUNT (test code = PLT) 321 K/mm3 150-450 N MEAN PLATELET VOLUME (test code = MPV) 9.9 fL 6.7-11.0 N IMMATURE GRANULOCYTE % (test code = IG%) 0.8 % 0.0-5.0 N NUCLEATED RBC % (test code = NRBC%) 0.0 % 0-0 N NEUTROPHIL # (test code = NT#) 15.22 K/mm3 1.8-7.7 H IMMATURE GRANULOCYTE # (test code = IG#) 0.15 x10 3/uL 0-0.03 H LYMPHOCYTE # (test code = LY#) 1.47 K/mm3 1.0-5.0 N MONOCYTE # (test code = MO#) 2.77 K/mm3 0-0.8 H EOSINOPHIL # (test code = EO#) 0.15 K/mm3 0.0-0.5 N BASOPHIL # (test code = BA#) 0.06 K/mm3 0.0-0.2 N NUCLEATED RBC # (test code = NRBC#) 0.00 K/mm3 0.0-0.1 N MANUAL DIFF REQUIRED (test code = MDIFF) YES STAIN ACCEPTABILITY (test code = STN ACCEPTABLE) TOTAL CELLS COUNTED (test code = TCC) #CELLS SEGMENTED NEUTROPHILS (test code = SEG) % 39-69 LYMPHOCYTE (test code = LYMPH) % 25-55 MONOCYTE (test code = MON) % 0-10 EOSINOPHIL (test code = EOS) % 0.0-5.0 CABOT RINGS (test code = CAB) MORPHOLOGY COMMENT (test code = MOC) PLATELET ESTIMATE (test code = PLTEST) PLATELET MORPHOLOGY (test code = PLTMORPH) [id number] 07:33:00* Test Item Value Reference Range Interpretation Comments GLUBED (test code = GLUBED) 315 mg/dL 74-106 H Performed by certified ground transportation operator at [facility] [id number] 19:56:00* Test Item Value Reference Range Interpretation Comments GLUBED (test code = GLUBED) 90 mg/dL 74-106 N Performed by certified ground transportation operator at [facility] [id number] 19:07:00* Test Item Value Reference Range Interpretation Comments GLUBED (test code = GLUBED) 107 mg/dL 74-106 H Performed by certified ground transportation operator at [facility] [id number] 19:07:00* Test Item Value Reference Range Interpretation Comments GLUBED (test code = GLUBED) 49 mg/dL 74-106 LL [facility]~ [id number] 17:50:00* Test Item Value Reference Range Interpretation Comments POTASSIUM (test code = K) 3.0 mmol/L 3.5-5.1 L RE SULT VERIFIED BY REPEAT ANALYSIS [id number] 17:08:00* Test Item Value Reference Range Interpretation Comments GLUBED (test code = GLUBED) 66 mg/dL 74-106 L Performed by certified ground transportation operator at [facility] [id number] 16:57:00* Test Item Value Reference Range Interpretation Comments GLUBED (test code = GLUBED) 76 mg/dL 74-106 N Performed by certified ground transportation operator at [facility] [id number] 13:11:00* Test Item Value Reference Range Interpretation Comments POTASSIUM (test code = K) 5.2 mmol/L 3.5-5.1 H [id number] 11:49:00* Test Item Value Reference Range Interpretation Comments GLUBED (test code = GLUBED) 81 mg/dL 74-106 N Performed by certified ground transportation operator at [facility] [id number] 09:39:00* Test Item Value Reference Range Interpretation Comments GLUBED (test code = GLUBED) 78 mg/dL 74-106 N Performed by certified ground transportation operator at [facility] - MRI LOW EXT W/O CONT [id number] 09:36:00 FAX: Olegario Diaz MD [phone] [place]: [address] St: ADM FAX: Heavenly Kerr [facility] [phone] FAX: Riley Zavala DO [phone] Name: BREE ASHTON [facility] : 1975 Age/S: 43/M [address] [facility] Unit #: [id number] Loc: [id number] [place] Sung [address] Phys: Heavenly Null DPM Acct: [id number] Dis Date: Status: ADM IN ONE #: [phone] Exam Date: 02/15/2019 0859 FAX #: [phone] Reason: cellulitis EXAMS: CPT CODE: [id number] MR I L[place] EXT W/[place] [address] HISTORY: Cellu litis TECHNIQUE: Sagittal T1, sagittal STIR, axial T1, axial T2 fa t-sat, coronal T2, and coronal STIR sequences of the left foot were acquir ed without contrast. COMPARISON: Left foot radiographs Novem 2018 FINDINGS: There is edema in the neck of the talus. Additionally on the lateral T1-weighted images there is a line ar hypointensity through the neck of the talus (annotated by arrow). These findings are suspicious for a fracture. This is not apparent on the prior radiographs. The remaining bones demonstrate normal marrow signal intensity. The flexor and extensor tendons of the foot are within normal limits. There is diffuse edema of the subcutaneous soft ti ssues throughout the foot. Evaluation for a discrete fluid collection is l imited by the absence of IV contrast. IMPRESSION: Focal edema in the neck of the talus as described above may re present a fracture. Focal osteomyelitis can also demonstrate similar sig nal intensity and a contrast-enhanced study can allow differentiation. Remaining bones demonstrate normal signal. Diffuse edema in the s oft tissues of the foot but no definite organized fluid collection is se en. at 0936 Reported and signed by: Mulugeta Espinoza MD CC: Maribel Diaz MD; Heavenly Null DPM; Riley Beckman DO Technologist: Lisy Mendoza)(MR) Trnscrd Date/Time/By: 02/15/2019 (0936) : By: [email or web address] Orig Print D/T: S: 02/15/2019 (4441) PAGE 1 Signed Report GLUBED 2019-02-15 07:22:00* Test Item Value Reference Range Interpretation Comments GLUBED (test code = GLUBED) 57 mg/dL 74-106 L Performed by certified ground transportation operator at [facility] BASIC METABOLIC [id number] 05:15:00* Test Item Value Reference Range Interpretation Comments SODIUM (test code = NA) 136 mmol/L 136-145 N POTASSIUM (test code = K) 2.7 mmol/L 3.5-5.1 LL Re sults called to [id number] by [place] 02/15/19 0515Critical results verified and read back by Nurse? Y CHLORIDE (test code = CL) 97.0 mmol/L 98-107 L CARBON DIOXIDE (test code = CO2) 34.0 mmol/L 21-32 H ANION GAP (test code = GAP) 7.7 10-20 L GLUCOSE (test code = GLU) 99 mg/dL 74-106 N BLOOD UREA NITROGEN (test code = BUN) 8 mg/dL 7-18 N GLOMERULAR FILTRATION RATE (test code = GFR) > 60 mL/min >=60 Estimated GFR by using Modified MDRD formula.Chronic kidney disease is defined as either kidney damageor GFR <60 mL/min/1.73 m2 for >3 months. CREATININE (test code = CREAT) 1.10 mg/dL 0.7-1.3 N BUN/CREATININE RATIO (test code = BUN/CREA) 7.3 10-20 L CALCIUM (test code = CA) 8.3 mg/dL 8.5-10.1 L C REACTIVE [id number] 04:21:00* Test Item Value Reference Range Interpretation Comments C REACTIVE PROTEIN (test code = CRP) 27.10 mg/dL 0-0.3 H CBC W/MANUAL [id number] 04:05:00* Test Item Value Reference Range Interpretation Comments WHITE BLOOD CELL (test code = WBC) 23.5 K/mm3 4.5-12.5 H RED BLOOD CELL (test code = RBC) 3.06 mill/mm3 4.0-5.8 L HEMOGLOBIN (test code = HGB) 8.6 gram/dL 13.0-17.5 L HEMATOCRIT (test code = HCT) 26.2 % 42.0-52.0 L MEAN CELL VOLUME (test code = MCV) 85.6 fL 80-98 N MEAN CELL HGB (test code = MCH) 28.1 picogram 27.0-33.0 N MEAN CELL HGB CONCETRATION (test code = MCHC) 32.8 gram/dL 33.0-36. 0 L RED CELL DISTRIBUTION WIDTH (test code = RDW) 12.9 % 11.6-16. 2 N RED CELL DISTRIBUTION WIDTH SD (test code = RDW-SD) 40.6 fL 37 .0-51.0 N PLATELET COUNT (test code = PLT) 296 K/mm3 150-450 N MEAN PLATELET VOLUME (test code = MPV) 10.3 fL 6.7-11.0 N IMMATURE GRANULOCYTE % (test code = IG%) 1.6 % 0.0-5.0 N NUCLEATED RBC % (test code = NRBC%) 0.0 % 0-0 N NEUTROPHIL # (test code = NT#) 18.99 K/mm3 1.8-7.7 H IMMATURE GRANULOCYTE # (test code = IG#) 0.37 x10 3/uL 0-0.03 H LYMPHOCYTE # (test code = LY#) 1.55 K/mm3 1.0-5.0 N MONOCYTE # (test code = MO#) 2.41 K/mm3 0-0.8 H EOSINOPHIL # (test code = EO#) 0.13 K/mm3 0.0-0.5 N BASOPHIL # (test code = BA#) 0.04 K/mm3 0.0-0.2 N NUCLEATED RBC # (test code = NRBC#) 0.00 K/mm3 0.0-0.1 N MANUAL DIFF REQUIRED (test code = MDIFF) YES STAIN ACCEPTABILITY (test code = STN ACCEPTABLE) STAIN ACCEPTABLE TOTAL CELLS COUNTED (test code = TCC) 115 #CELLS SEGMENTED NEUTROPHILS (test code = SEG) 86.1 % 39-69 H BAND NEUTROPHIL (test code = BAND) 0.9 % 0-10 N LYMPHOCYTE (test code = LYMPH) 7.8 % 25-55 L REACTIVE LYMPH (test code = RELYMPH) 0 % MONOCYTE (test code = MON) 5.2 % 0-10 N EOSINOPHIL (test code = EOS) 0 % 0.0-5.0 N BASOPHIL (test code = BASO) 0 % 0-1.0 N METAMYELOCYTE (test code = META) 0 % 0-0 N MYELOCYTE (test code = MYELO) 0 % 0.0-0.0 N PROMYELOCYTE (test code = PROM) 0 % 0-0 N HYPOCHROMIA (test code = HYPO) 1+ PLATELET ESTIMATE (test code = PLTEST) ADEQUATE PLATELET MORPHOLOGY (test code = PLTMORPH) NORMAL IMMATURE FORMS (test code = IMMAT) 0 % 0-0 N CBC W/MANUAL [id number] 03:30:00* Test Item Value Reference Range Interpretation Comments WHITE BLOOD CELL (test code = WBC) 23.5 K/mm3 4.5-12.5 H RED BLOOD CELL (test code = RBC) 3.06 mill/mm3 4.0-5.8 L HEMOGLOBIN (test code = HGB) 8.6 gram/dL 13.0-17.5 L HEMATOCRIT (test code = HCT) 26.2 % 42.0-52.0 L MEAN CELL VOLUME (test code = MCV) 85.6 fL 80-98 N MEAN CELL HGB (test code = MCH) 28.1 picogram 27.0-33.0 N MEAN CELL HGB CONCETRATION (test code = MCHC) 32.8 gram/dL 33.0-36. 0 L RED CELL DISTRIBUTION WIDTH (test code = RDW) 12.9 % 11.6-16. 2 N RED CELL DISTRIBUTION WIDTH SD (test code = RDW-SD) 40.6 fL 37 .0-51.0 N PLATELET COUNT (test code = PLT) 296 K/mm3 150-450 N MEAN PLATELET VOLUME (test code = MPV) 10.3 fL 6.7-11.0 N IMMATURE GRANULOCYTE % (test code = IG%) 1.6 % 0.0-5.0 N NUCLEATED RBC % (test code = NRBC%) 0.0 % 0-0 N NEUTROPHIL # (test code = NT#) 18.99 K/mm3 1.8-7.7 H IMMATURE GRANULOCYTE # (test code = IG#) 0.37 x10 3/uL 0-0.03 H LYMPHOCYTE # (test code = LY#) 1.55 K/mm3 1.0-5.0 N MONOCYTE # (test code = MO#) 2.41 K/mm3 0-0.8 H EOSINOPHIL # (test code = EO#) 0.13 K/mm3 0.0-0.5 N BASOPHIL # (test code = BA#) 0.04 K/mm3 0.0-0.2 N NUCLEATED RBC # (test code = NRBC#) 0.00 K/mm3 0.0-0.1 N MANUAL DIFF REQUIRED (test code = MDIFF) YES STAIN ACCEPTABILITY (test code = STN ACCEPTABLE) TOTAL CELLS COUNTED (test code = TCC) #CELLS SEGMENTED NEUTROPHILS (test code = SEG) % 39-69 LYMPHOCYTE (test code = LYMPH) % 25-55 MONOCYTE (test code = MON) % 0-10 MORPHOLOGY COMMENT (test code = MOC) PLATELET ESTIMATE (test code = PLTEST) PLATELET MORPHOLOGY (test code = PLTMORPH) [id number] 20:26:00* Test Item Value Reference Range Interpretation Comments GLUBED (test code = GLUBED) 151 mg/dL 74-106 H Performed by certified ground transportation operator at [facility] [id number] 17:12:00* Test Item Value Reference Range Interpretation Comments GLUBED (test code = GLUBED) 124 mg/dL 74-106 H Performed by certified ground transportation operator at [facility] [id number] 17:07:00* Test Item Value Reference Range Interpretation Comments GLUBED (test code = GLUBED) 81 mg/dL 74-106 N Performed by certified ground transportation operator at [facility] [id number] 12:13:00* Test Item Value Reference Range Interpretation Comments GLUBED (test code = GLUBED) 95 mg/dL 74-106 N Performed by certified ground transportation operator at [facility] CBC W/MANUAL [id number] 08:15:00* Test Item Value Reference Range Interpretation Comments WHITE BLOOD CELL (test code = WBC) 26.3 K/mm3 4.5-12.5 H RED BLOOD CELL (test code = RBC) 2.98 mill/mm3 4.0-5.8 L HEMOGLOBIN (test code = HGB) 8.5 gram/dL 13.0-17.5 L HEMATOCRIT (test code = HCT) 26.4 % 42.0-52.0 L MEAN CELL VOLUME (test code = MCV) 88.6 fL 80-98 N MEAN CELL HGB (test code = MCH) 28.5 picogram 27.0-33.0 N MEAN CELL HGB CONCETRATION (test code = MCHC) 32.2 gram/dL 33.0-36. 0 L RED CELL DISTRIBUTION WIDTH (test code = RDW) 12.9 % 11.6-16. 2 N RED CELL DISTRIBUTION WIDTH SD (test code = RDW-SD) 42.1 fL 37 .0-51.0 N PLATELET COUNT (test code = PLT) 255 K/mm3 150-450 N MEAN PLATELET VOLUME (test code = MPV) 10.4 fL 6.7-11.0 N IMMATURE GRANULOCYTE % (test code = IG%) 1.5 % 0.0-5.0 N NUCLEATED RBC % (test code = NRBC%) 0.0 % 0-0 N NEUTROPHIL # (test code = NT#) 23.08 K/mm3 1.8-7.7 H IMMATURE GRANULOCYTE # (test code = IG#) 0.39 x10 3/uL 0-0.03 H LYMPHOCYTE # (test code = LY#) 1.08 K/mm3 1.0-5.0 N MONOCYTE # (test code = MO#) 1.57 K/mm3 0-0.8 H EOSINOPHIL # (test code = EO#) 0.09 K/mm3 0.0-0.5 N BASOPHIL # (test code = BA#) 0.06 K/mm3 0.0-0.2 N NUCLEATED RBC # (test code = NRBC#) 0.00 K/mm3 0.0-0.1 N MANUAL DIFF REQUIRED (test code = MDIFF) YES STAIN ACCEPTABILITY (test code = STN ACCEPTABLE) STAIN ACCEPTABLE TOTAL CELLS COUNTED (test code = TCC) 114 #CELLS SEGMENTED NEUTROPHILS (test code = SEG) 93.8 % 39-69 H BAND NEUTROPHIL (test code = BAND) 0.9 % 0-10 N LYMPHOCYTE (test code = LYMPH) 0.9 % 25-55 L REACTIVE LYMPH (test code = RELYMPH) 0 % MONOCYTE (test code = MON) 4.4 % 0-10 N EOSINOPHIL (test code = EOS) 0 % 0.0-5.0 N BASOPHIL (test code = BASO) 0 % 0-1.0 N METAMYELOCYTE (test code = META) 0 % 0-0 N MYELOCYTE (test code = MYELO) 0 % 0.0-0.0 N PROMYELOCYTE (test code = PROM) 0 % 0-0 N MORPHOLOGY COMMENT (test code = MOC) NORMAL PLATELET ESTIMATE (test code = PLTEST) ADEQUATE PLATELET MORPHOLOGY (test code = PLTMORPH) NORMAL IMMATURE FORMS (test code = IMMAT) 0 % 0-0 N [id number] 07:18:00* Test Item Value Reference Range Interpretation Comments GLUBED (test code = GLUBED) 195 mg/dL 74-106 H Performed by certified ground transportation operator at [facility] BASIC METABOLIC [id number] 07:16:00* Test Item Value Reference Range Interpretation Comments SODIUM (test code = NA) 136 mmol/L 136-145 N POTASSIUM (test code = K) 3.1 mmol/L 3.5-5.1 L CHLORIDE (test code = CL) 99.0 mmol/L 98-107 N CARBON DIOXIDE (test code = CO2) 31.0 mmol/L 21-32 N ANION GAP (test code = GAP) 9.1 10-20 L GLUCOSE (test code = GLU) 212 mg/dL 74-106 H BLOOD UREA NITROGEN (test code = BUN) 10 mg/dL 7-18 N GLOMERULAR FILTRATION RATE (test code = GFR) > 60 mL/min >=60 Estimated GFR by using Modified MDRD formula.Chronic kidney disease is defined as either kidney damageor GFR <60 mL/min/1.73 m2 for >3 months. CREATININE (test code = CREAT) 1.10 mg/dL 0.7-1.3 N BUN/CREATININE RATIO (test code = BUN/CREA) 9.3 10-20 L CALCIUM (test code = CA) 8.4 mg/dL 8.5-10.1 L [id number] 07:16:00* Test Item Value Reference Range Interpretation Comments MAGNESIUM (test code = MAG) 1.7 mg/dL 1.8-2.4 L CBC W/MANUAL [id number] 06:58:00* Test Item Value Reference Range Interpretation Comments WHITE BLOOD CELL (test code = WBC) 26.3 K/mm3 4.5-12.5 H RED BLOOD CELL (test code = RBC) 2.98 mill/mm3 4.0-5.8 L HEMOGLOBIN (test code = HGB) 8.5 gram/dL 13.0-17.5 L HEMATOCRIT (test code = HCT) 26.4 % 42.0-52.0 L MEAN CELL VOLUME (test code = MCV) 88.6 fL 80-98 N MEAN CELL HGB (test code = MCH) 28.5 picogram 27.0-33.0 N MEAN CELL HGB CONCETRATION (test code = MCHC) 32.2 gram/dL 33.0-36. 0 L RED CELL DISTRIBUTION WIDTH (test code = RDW) 12.9 % 11.6-16. 2 N RED CELL DISTRIBUTION WIDTH SD (test code = RDW-SD) 42.1 fL 37 .0-51.0 N PLATELET COUNT (test code = PLT) 255 K/mm3 150-450 N MEAN PLATELET VOLUME (test code = MPV) 10.4 fL 6.7-11.0 N IMMATURE GRANULOCYTE % (test code = IG%) 1.5 % 0.0-5.0 N NUCLEATED RBC % (test code = NRBC%) 0.0 % 0-0 N NEUTROPHIL # (test code = NT#) 23.08 K/mm3 1.8-7.7 H IMMATURE GRANULOCYTE # (test code = IG#) 0.39 x10 3/uL 0-0.03 H LYMPHOCYTE # (test code = LY#) 1.08 K/mm3 1.0-5.0 N MONOCYTE # (test code = MO#) 1.57 K/mm3 0-0.8 H EOSINOPHIL # (test code = EO#) 0.09 K/mm3 0.0-0.5 N BASOPHIL # (test code = BA#) 0.06 K/mm3 0.0-0.2 N NUCLEATED RBC # (test code = NRBC#) 0.00 K/mm3 0.0-0.1 N MANUAL DIFF REQUIRED (test code = MDIFF) YES STAIN ACCEPTABILITY (test code = STN ACCEPTABLE) TOTAL CELLS COUNTED (test code = TCC) #CELLS SEGMENTED NEUTROPHILS (test code = SEG) % 39-69 LYMPHOCYTE (test code = LYMPH) % 25-55 MONOCYTE (test code = MON) % 0-10 EOSINOPHIL (test code = EOS) % 0.0-5.0 CABOT RINGS (test code = CAB) MORPHOLOGY COMMENT (test code = MOC) PLATELET ESTIMATE (test code = PLTEST) PLATELET MORPHOLOGY (test code = PLTMORPH) CBC W/MANUAL [id number] 06:58:00* Test Item Value Reference Range Interpretation Comments WHITE BLOOD CELL (test code = WBC) 26.3 K/mm3 4.5-12.5 H RED BLOOD CELL (test code = RBC) 2.98 mill/mm3 4.0-5.8 L HEMOGLOBIN (test code = HGB) 8.5 gram/dL 13.0-17.5 L HEMATOCRIT (test code = HCT) 26.4 % 42.0-52.0 L MEAN CELL VOLUME (test code = MCV) 88.6 fL 80-98 N MEAN CELL HGB (test code = MCH) 28.5 picogram 27.0-33.0 N MEAN CELL HGB CONCETRATION (test code = MCHC) 32.2 gram/dL 33.0-36. 0 L RED CELL DISTRIBUTION WIDTH (test code = RDW) 12.9 % 11.6-16. 2 N RED CELL DISTRIBUTION WIDTH SD (test code = RDW-SD) 42.1 fL 37 .0-51.0 N PLATELET COUNT (test code = PLT) 255 K/mm3 150-450 N MEAN PLATELET VOLUME (test code = MPV) 10.4 fL 6.7-11.0 N IMMATURE GRANULOCYTE % (test code = IG%) 1.5 % 0.0-5.0 N NUCLEATED RBC % (test code = NRBC%) 0.0 % 0-0 N NEUTROPHIL # (test code = NT#) 23.08 K/mm3 1.8-7.7 H IMMATURE GRANULOCYTE # (test code = IG#) 0.39 x10 3/uL 0-0.03 H LYMPHOCYTE # (test code = LY#) 1.08 K/mm3 1.0-5.0 N MONOCYTE # (test code = MO#) 1.57 K/mm3 0-0.8 H EOSINOPHIL # (test code = EO#) 0.09 K/mm3 0.0-0.5 N BASOPHIL # (test code = BA#) 0.06 K/mm3 0.0-0.2 N NUCLEATED RBC # (test code = NRBC#) 0.00 K/mm3 0.0-0.1 N MANUAL DIFF REQUIRED (test code = MDIFF) YES STAIN ACCEPTABILITY (test code = STN ACCEPTABLE) TOTAL CELLS COUNTED (test code = TCC) #CELLS SEGMENTED NEUTROPHILS (test code = SEG) % 39-69 LYMPHOCYTE (test code = LYMPH) % 25-55 MONOCYTE (test code = MON) % 0-10 EOSINOPHIL (test code = EOS) % 0.0-5.0 CABOT RINGS (test code = CAB) MORPHOLOGY COMMENT (test code = MOC) PLATELET ESTIMATE (test code = PLTEST) PLATELET MORPHOLOGY (test code = PLTMORPH) CBC W/MANUAL [id number] 06:58:00* Test Item Value Reference Range Interpretation Comments WHITE BLOOD CELL (test code = WBC) 26.3 K/mm3 4.5-12.5 H RED BLOOD CELL (test code = RBC) 2.98 mill/mm3 4.0-5.8 L HEMOGLOBIN (test code = HGB) 8.5 gram/dL 13.0-17.5 L HEMATOCRIT (test code = HCT) 26.4 % 42.0-52.0 L MEAN CELL VOLUME (test code = MCV) 88.6 fL 80-98 N MEAN CELL HGB (test code = MCH) 28.5 picogram 27.0-33.0 N MEAN CELL HGB CONCETRATION (test code = MCHC) 32.2 gram/dL 33.0-36. 0 L RED CELL DISTRIBUTION WIDTH (test code = RDW) 12.9 % 11.6-16. 2 N RED CELL DISTRIBUTION WIDTH SD (test code = RDW-SD) 42.1 fL 37 .0-51.0 N PLATELET COUNT (test code = PLT) 255 K/mm3 150-450 N MEAN PLATELET VOLUME (test code = MPV) 10.4 fL 6.7-11.0 N IMMATURE GRANULOCYTE % (test code = IG%) 1.5 % 0.0-5.0 N NUCLEATED RBC % (test code = NRBC%) 0.0 % 0-0 N NEUTROPHIL # (test code = NT#) 23.08 K/mm3 1.8-7.7 H IMMATURE GRANULOCYTE # (test code = IG#) 0.39 x10 3/uL 0-0.03 H LYMPHOCYTE # (test code = LY#) 1.08 K/mm3 1.0-5.0 N MONOCYTE # (test code = MO#) 1.57 K/mm3 0-0.8 H EOSINOPHIL # (test code = EO#) 0.09 K/mm3 0.0-0.5 N BASOPHIL # (test code = BA#) 0.06 K/mm3 0.0-0.2 N NUCLEATED RBC # (test code = NRBC#) 0.00 K/mm3 0.0-0.1 N MANUAL DIFF REQUIRED (test code = MDIFF) YES STAIN ACCEPTABILITY (test code = STN ACCEPTABLE) TOTAL CELLS COUNTED (test code = TCC) #CELLS SEGMENTED NEUTROPHILS (test code = SEG) % 39-69 LYMPHOCYTE (test code = LYMPH) % 25-55 MONOCYTE (test code = MON) % 0-10 EOSINOPHIL (test code = EOS) % 0.0-5.0 MORPHOLOGY COMMENT (test code = MOC) PLATELET ESTIMATE (test code = PLTEST) PLATELET MORPHOLOGY (test code = PLTMORPH) CBC W/MANUAL [id number] 06:58:00* Test Item Value Reference Range Interpretation Comments WHITE BLOOD CELL (test code = WBC) 26.3 K/mm3 4.5-12.5 H RED BLOOD CELL (test code = RBC) 2.98 mill/mm3 4.0-5.8 L HEMOGLOBIN (test code = HGB) 8.5 gram/dL 13.0-17.5 L HEMATOCRIT (test code = HCT) 26.4 % 42.0-52.0 L MEAN CELL VOLUME (test code = MCV) 88.6 fL 80-98 N MEAN CELL HGB (test code = MCH) 28.5 picogram 27.0-33.0 N MEAN CELL HGB CONCETRATION (test code = MCHC) 32.2 gram/dL 33.0-36. 0 L RED CELL DISTRIBUTION WIDTH (test code = RDW) 12.9 % 11.6-16. 2 N RED CELL DISTRIBUTION WIDTH SD (test code = RDW-SD) 42.1 fL 37 .0-51.0 N PLATELET COUNT (test code = PLT) 255 K/mm3 150-450 N MEAN PLATELET VOLUME (test code = MPV) 10.4 fL 6.7-11.0 N IMMATURE GRANULOCYTE % (test code = IG%) 1.5 % 0.0-5.0 N NUCLEATED RBC % (test code = NRBC%) 0.0 % 0-0 N NEUTROPHIL # (test code = NT#) 23.08 K/mm3 1.8-7.7 H IMMATURE GRANULOCYTE # (test code = IG#) 0.39 x10 3/uL 0-0.03 H LYMPHOCYTE # (test code = LY#) 1.08 K/mm3 1.0-5.0 N MONOCYTE # (test code = MO#) 1.57 K/mm3 0-0.8 H EOSINOPHIL # (test code = EO#) 0.09 K/mm3 0.0-0.5 N BASOPHIL # (test code = BA#) 0.06 K/mm3 0.0-0.2 N NUCLEATED RBC # (test code = NRBC#) 0.00 K/mm3 0.0-0.1 N MANUAL DIFF REQUIRED (test code = MDIFF) YES STAIN ACCEPTABILITY (test code = STN ACCEPTABLE) TOTAL CELLS COUNTED (test code = TCC) #CELLS SEGMENTED NEUTROPHILS (test code = SEG) % 39-69 LYMPHOCYTE (test code = LYMPH) % 25-55 MONOCYTE (test code = MON) % 0-10 MORPHOLOGY COMMENT (test code = MOC) PLATELET ESTIMATE (test code = PLTEST) PLATELET MORPHOLOGY (test code = PLTMORPH) CBC W/MANUAL [id number] 06:58:00* Test Item Value Reference Range Interpretation Comments WHITE BLOOD CELL (test code = WBC) 26.3 K/mm3 4.5-12.5 H RED BLOOD CELL (test code = RBC) 2.98 mill/mm3 4.0-5.8 L HEMOGLOBIN (test code = HGB) 8.5 gram/dL 13.0-17.5 L HEMATOCRIT (test code = HCT) 26.4 % 42.0-52.0 L MEAN CELL VOLUME (test code = MCV) 88.6 fL 80-98 N MEAN CELL HGB (test code = MCH) 28.5 picogram 27.0-33.0 N MEAN CELL HGB CONCETRATION (test code = MCHC) 32.2 gram/dL 33.0-36. 0 L RED CELL DISTRIBUTION WIDTH (test code = RDW) 12.9 % 11.6-16. 2 N RED CELL DISTRIBUTION WIDTH SD (test code = RDW-SD) 42.1 fL 37 .0-51.0 N PLATELET COUNT (test code = PLT) 255 K/mm3 150-450 N MEAN PLATELET VOLUME (test code = MPV) 10.4 fL 6.7-11.0 N IMMATURE GRANULOCYTE % (test code = IG%) 1.5 % 0.0-5.0 N NUCLEATED RBC % (test code = NRBC%) 0.0 % 0-0 N NEUTROPHIL # (test code = NT#) 23.08 K/mm3 1.8-7.7 H IMMATURE GRANULOCYTE # (test code = IG#) 0.39 x10 3/uL 0-0.03 H LYMPHOCYTE # (test code = LY#) 1.08 K/mm3 1.0-5.0 N MONOCYTE # (test code = MO#) 1.57 K/mm3 0-0.8 H EOSINOPHIL # (test code = EO#) 0.09 K/mm3 0.0-0.5 N BASOPHIL # (test code = BA#) 0.06 K/mm3 0.0-0.2 N NUCLEATED RBC # (test code = NRBC#) 0.00 K/mm3 0.0-0.1 N MANUAL DIFF REQUIRED (test code = MDIFF) YES STAIN ACCEPTABILITY (test code = STN ACCEPTABLE) TOTAL CELLS COUNTED (test code = TCC) #CELLS SEGMENTED NEUTROPHILS (test code = SEG) % 39-69 LYMPHOCYTE (test code = LYMPH) % 25-55 MONOCYTE (test code = MON) % 0-10 EOSINOPHIL (test code = EOS) % 0.0-5.0 CABOT RINGS (test code = CAB) MORPHOLOGY COMMENT (test code = MOC) PLATELET ESTIMATE (test code = PLTEST) PLATELET MORPHOLOGY (test code = PLTMORPH) BASIC METABOLIC [id number] 06:56:00* Test Item Value Reference Range Interpretation Comments SODIUM (test code = NA) 136 mmol/L 136-145 N POTASSIUM (test code = K) 3.1 mmol/L 3.5-5.1 L CHLORIDE (test code = CL) 99.0 mmol/L 98-107 N CARBON DIOXIDE (test code = CO2) mmol/L 21-32 ANION GAP (test code = GAP) 10-20 GLUCOSE (test code = GLU) mg/dL 74-106 BLOOD UREA NITROGEN (test code = BUN) mg/dL 7-18 GLOMERULAR FILTRATION RATE (test code = GFR) mL/min >=60 CREATININE (test code = CREAT) mg/dL 0.7-1.3 BUN/CREATININE RATIO (test code = BUN/CREA) 10-20 CALCIUM (test code = CA) mg/dL 8.5-10.1 [id number] 06:56:00* Test Item Value Reference Range Interpretation Comments MAGNESIUM (test code = MAG) mg/dL 1.8-2.4 [id number] 20:42:00* Test Item Value Reference Range Interpretation Comments GLUBED (test code = GLUBED) 261 mg/dL 74-106 H Performed by certified ground transportation operator at [facility] CBC W/MANUAL [id number] 10:55:00* Test Item Value Reference Range Interpretation Comments WHITE BLOOD CELL (test code = WBC) 27.0 K/mm3 4.5-12.5 H RED BLOOD CELL (test code = RBC) 3.63 mill/mm3 4.0-5.8 L HEMOGLOBIN (test code = HGB) 10.3 gram/dL 13.0-17.5 L HEMATOCRIT (test code = HCT) 31.4 % 42.0-52.0 L MEAN CELL VOLUME (test code = MCV) 86.5 fL 80-98 N MEAN CELL HGB (test code = MCH) 28.4 picogram 27.0-33.0 N MEAN CELL HGB CONCETRATION (test code = MCHC) 32.8 gram/dL 33.0-36. 0 L RED CELL DISTRIBUTION WIDTH (test code = RDW) 12.6 % 11.6-16. 2 N RED CELL DISTRIBUTION WIDTH SD (test code = RDW-SD) 40.4 fL 37 .0-51.0 N PLATELET COUNT (test code = PLT) 289 K/mm3 150-450 N MEAN PLATELET VOLUME (test code = MPV) 9.6 fL 6.7-11.0 N NEUTROPHIL # (test code = NT#) 24.38 K/mm3 1.8-7.7 H LYMPHOCYTE # (test code = LY#) 0.65 K/mm3 1.0-5.0 L MONOCYTE # (test code = MO#) 1.70 K/mm3 0-0.8 H EOSINOPHIL # (test code = EO#) 0.01 K/mm3 0.0-0.5 N BASOPHIL # (test code = BA#) 0.01 K/mm3 0.0-0.2 N MANUAL DIFF REQUIRED (test code = MDIFF) YES STAIN ACCEPTABILITY (test code = STN ACCEPTABLE) STAIN ACCEPTABLE TOTAL CELLS COUNTED (test code = TCC) 100 #CELLS SEGMENTED NEUTROPHILS (test code = SEG) 82 % 39-69 H BAND NEUTROPHIL (test code = BAND) 8 % 0-10 N LYMPHOCYTE (test code = LYMPH) 3 % 25-55 L MONOCYTE (test code = MON) 7 % 0-10 N HYPOCHROMIA (test code = HYPO) 1+ PLATELET ESTIMATE (test code = PLTEST) ADEQUATE PLATELET MORPHOLOGY (test code = PLTMORPH) NORMAL URINALYSIS [id number] 10:38:00* Test Item Value Reference Range Interpretation Comments UA COLOR (test code = COLU) BHARAT YELLOW A UA APPEARANCE (test code = APPU) HAZY CLEAR A UA GLUCOSE DIPSTICK (test code = DGLUU) 250 (2+) mg/dL NEGATIVE A UA BILIRUBIN DIPSTICK (test code = BILU) NEGATIVE mg/dL NEGATIVE UA KETONE DIPSTICK (test code = KETU) 15 (1+) mg/dL NEGATIVE A UA SPECIFIC GRAVITY (test code = SGU) 1.015 1.001-1.035 UA BLOOD DIPSTICK (test code = JOANNE) 50 (2+) Eugenio/uL NEGATIVE A UA PH DIPSTICK (test code = JOHN) 6.0 5.0-8.0 UA PROTEIN DIPSTICK (test code = PROU) 100 (2+) mg/dL Neg-15 A UA UROBILINIOGEN DIPSTICK (test code = URO) 1 mg/dL 0.0-0.2 A UA NITRITE DIPSTICK (test code = JOHNSON) NEGATIVE NEGATIVE UA LEUKOCYTE ESTERASE DIPSTICK (test code = LEUU) 25 Jeannine/uL (Tra ce) uL NEGATIVE A UA WBC (test code = WBCU) 3-5 per HPF 0-5 UA RBC (test code = RBCU) 3-5 per HPF 0-5 UA EPITHELIAL CELLS (test code = EPIU) Few (2-5/hpf) per HPF Few UA BACTERIA (test code = BACU) FEW per HPF NONE Urine Source? Clean Catch- XR FOOT 3 + V [id number] 10:33:00 Name: BREE ASHTON [facility] : 1975 Age/S:43 /M [address] [facility] Unit#:[id number] Loc: [place] [address] Phys: Chandan Cage MD Dis Date: PHONE #: [phone] Status: REG ER FAX #: [phone] Exam Date: 02/13/2019 Re ason: left foot swelling EXAMS: CPT CODE: [id number] XR FOOT 3 + [place] [id number] CLINICAL HISTORY: left foot swelling TECHNIQUE: AP, oblique, and lateral views of the left foot COMPARISON: None FINDINGS: No acute fracture or dislocation. Bony trabecular pattern is unremarkable. No cortical dest ruction or periosteal reaction. Joint spaces are preserved. Ankle mortise is appropriately aligned. Talar beak is present. So ft tissues are swollen. IMPRESSION: So ft tissue swelling of the left foot but no acute underlying bony injury. Location: [facility] at 1033 Reported and signed by: Mulugeta Espinoza MD CC: Tracy Cage MD; Riley Beckman DO Technologist: Stone Lund RT(R)(CT) Trnscrpt Data: 02/13/2019 (1033) [id number] Orig Print D/T: S: 02/13/2019 (1036) PAGE 1 Signed Report LACTIC [id number] 10:28:00* Test Item Value Reference Range Interpretation Comments LACTIC ACID (test code = LACT) 1.6 MMOL/L 0.4-1.9 N BASIC METABOLIC [id number] 10:28:00* Test Item Value Reference Range Interpretation Comments SODIUM (test code = NA) 136 mmol/L 136-145 N POTASSIUM (test code = K) 3.0 mmol/L 3.5-5.1 L CHLORIDE (test code = CL) 96 mmol/L 101-109 L CARBON DIOXIDE (test code = CO2) 34.3 mmol/L 21-32 H ANION GAP (test code = GAP) 9 mmol/L 10-20 L GLUCOSE (test code = GLU) 206 mg/dL 74-106 H BLOOD UREA NITROGEN (test code = BUN) 10 mg/dL 3-21 N GLOMERULAR FILTRATION RATE (test code = GFR) > 60 mL/min >=60 Estimated GFR by using Modified MDRD formula.Chronic kidney disease is defined as either kidney damageor GFR <60 mL/min/1.73 m2 for >3 months. CREATININE (test code = CREAT) 1.27 mg/dL 0.55-1.3 N BUN/CREATININE RATIO (test code = BUN/CREA) 7.9 10-20 L CALCIUM (test code = CA) 8.7 mg/dL 8.4-10.2 N HEPATIC FUNCTION [id number] 10:28:00* Test Item Value Reference Range Interpretation Comments TOTAL PROTEIN (test code = PROT) 7.2 g/dL 6.5-8.4 N ALBUMIN (test code = ALB) 2.8 g/dL 3.4-4.8 L GLOBULIN (test code = GLOB) 4.4 G/DL 1-10 N ALBUMIN/GLOBULIN RATIO (test code = A/G) 0.64 RATIO 0.75-1.50 L BILIRUBIN TOTAL (test code = BILT) 0.40 mg/dL 0.0-1.0 N BILIRUBIN DIRECT (test code = BILD) 0.20 mg/dL 0.0-0.30 N SGOT/AST (test code = AST) 12 U/L 6-32 N SGPT/ALT (test code = ALT) 15 U/L 12-78 N N ote: Change in REFERENCE RANGE due to new reagent method. ALKALINE PHOSPHATASE TOTAL (test code = ALKP) 120 U/L 38-126 N [id number] 10:28:00* Test Item Value Reference Range Interpretation Comments TROPONIN-I (test code = TROPI) <0.015 ng/mL 0.00-0.056 N URINALYSIS [id number] 10:20:00* Test Item Value Reference Range Interpretation Comments UA COLOR (test code = COLU) BHARAT YELLOW A UA APPEARANCE (test code = APPU) HAZY CLEAR A UA GLUCOSE DIPSTICK (test code = DGLUU) 250 (2+) mg/dL NEGATIVE A UA BILIRUBIN DIPSTICK (test code = BILU) NEGATIVE mg/dL NEGATIVE UA KETONE DIPSTICK (test code = KETU) 15 (1+) mg/dL NEGATIVE A UA SPECIFIC GRAVITY (test code = SGU) 1.015 1.001-1.035 UA BLOOD DIPSTICK (test code = JOANNE) 50 (2+) Eugenio/uL NEGATIVE A UA PH DIPSTICK (test code = JOHN) 6.0 5.0-8.0 UA PROTEIN DIPSTICK (test code = PROU) 100 (2+) mg/dL Neg-15 A UA UROBILINIOGEN DIPSTICK (test code = URO) 1 mg/dL 0.0-0.2 A UA NITRITE DIPSTICK (test code = JOHNSON) NEGATIVE NEGATIVE UA LEUKOCYTE ESTERASE DIPSTICK (test code = LEUU) 25 Jeannine/uL (Tra ce) uL NEGATIVE A UA WBC (test code = WBCU) per HPF 0-5 UA RBC (test code = RBCU) per HPF 0-5 UA EPITHELIAL CELLS (test code = EPIU) per HPF Few UA BACTERIA (test code = BACU) per HPF NONE Urine Source? Clean CatchBASIC METABOLIC [id number] 10:19:00* Test Item Value Reference Range Interpretation Comments SODIUM (test code = NA) 136 mmol/L 136-145 N POTASSIUM (test code = K) 3.0 mmol/L 3.5-5.1 L CHLORIDE (test code = CL) 96 mmol/L 101-109 L CARBON DIOXIDE (test code = CO2) 34.3 mmol/L 21-32 H ANION GAP (test code = GAP) 9 mmol/L 10-20 L GLUCOSE (test code = GLU) 206 mg/dL 74-106 H BLOOD UREA NITROGEN (test code = BUN) 10 mg/dL 3-21 N GLOMERULAR FILTRATION RATE (test code = GFR) > 60 mL/min >=60 Estimated GFR by using Modified MDRD formula.Chronic kidney disease is defined as either kidney damageor GFR <60 mL/min/1.73 m2 for >3 months. CREATININE (test code = CREAT) 1.27 mg/dL 0.55-1.3 N BUN/CREATININE RATIO (test code = BUN/CREA) 7.9 10-20 L CALCIUM (test code = CA) 8.7 mg/dL 8.4-10.2 N HEPATIC FUNCTION [id number] 10:19:00* Test Item Value Reference Range Interpretation Comments TOTAL PROTEIN (test code = PROT) gram/dL 6.4-8.2 ALBUMIN (test code = ALB) g/dL 3.4-5.0 GLOBULIN (test code = GLOB) g/dL 2.7-4.2 ALBUMIN/GLOBULIN RATIO (test code = A/G) 0.75-1.50 BILIRUBIN TOTAL (test code = BILT) mg/dL 0.2-1.2 BILIRUBIN DIRECT (test code = BILD) mg/dL 0.0-0.20 SGOT/AST (test code = AST) IUnit/L 15-37 SGPT/ALT (test code = ALT) U/L 10-69 ALKALINE PHOSPHATASE TOTAL (test code = ALKP) IUnit/L 45-117 [id number] 10:19:00* Test Item Value Reference Range Interpretation Comments TROPONIN-I (test code = TROPI) ng/mL 0-0.045 CBC W/MANUAL [id number] 10:13:00* Test Item Value Reference Range Interpretation Comments WHITE BLOOD CELL (test code = WBC) 27.0 K/mm3 4.5-12.5 H RED BLOOD CELL (test code = RBC) 3.63 mill/mm3 4.0-5.8 L HEMOGLOBIN (test code = HGB) 10.3 gram/dL 13.0-17.5 L HEMATOCRIT (test code = HCT) 31.4 % 42.0-52.0 L MEAN CELL VOLUME (test code = MCV) 86.5 fL 80-98 N MEAN CELL HGB (test code = MCH) 28.4 picogram 27.0-33.0 N MEAN CELL HGB CONCETRATION (test code = MCHC) 32.8 gram/dL 33.0-36. 0 L RED CELL DISTRIBUTION WIDTH (test code = RDW) 12.6 % 11.6-16. 2 N RED CELL DISTRIBUTION WIDTH SD (test code = RDW-SD) 40.4 fL 37 .0-51.0 N PLATELET COUNT (test code = PLT) 289 K/mm3 150-450 N MEAN PLATELET VOLUME (test code = MPV) 9.6 fL 6.7-11.0 N NEUTROPHIL # (test code = NT#) 24.38 K/mm3 1.8-7.7 H LYMPHOCYTE # (test code = LY#) 0.65 K/mm3 1.0-5.0 L MONOCYTE # (test code = MO#) 1.70 K/mm3 0-0.8 H EOSINOPHIL # (test code = EO#) 0.01 K/mm3 0.0-0.5 N BASOPHIL # (test code = BA#) 0.01 K/mm3 0.0-0.2 N MANUAL DIFF REQUIRED (test code = IFF) YES STAIN ACCEPTABILITY (test code = STN ACCEPTABLE) TOTAL CELLS COUNTED (test code = TCC) #CELLS SEGMENTED NEUTROPHILS (test code = SEG) % 39-69 LYMPHOCYTE (test code = LYMPH) % 25-55 MONOCYTE (test code = MON) % 0-10 MORPHOLOGY COMMENT (test code = MOC) PLATELET ESTIMATE (test code = PLTEST) PLATELET MORPHOLOGY (test code = PLTMORPH) CBC W/MANUAL [id number] 10:02:00* Test Item Value Reference Range Interpretation Comments WHITE BLOOD CELL (test code = WBC) 27.0 K/mm3 4.5-12.5 H RED BLOOD CELL (test code = RBC) 3.63 mill/mm3 4.0-5.8 L HEMOGLOBIN (test code = HGB) 10.3 gram/dL 13.0-17.5 L HEMATOCRIT (test code = HCT) 31.4 % 42.0-52.0 L MEAN CELL VOLUME (test code = MCV) 86.5 fL 80-98 N MEAN CELL HGB (test code = MCH) 28.4 picogram 27.0-33.0 N MEAN CELL HGB CONCETRATION (test code = MCHC) 32.8 gram/dL 33.0-36. 0 L RED CELL DISTRIBUTION WIDTH (test code = RDW) 12.6 % 11.6-16. 2 N RED CELL DISTRIBUTION WIDTH SD (test code = RDW-SD) 40.4 fL 37 .0-51.0 N PLATELET COUNT (test code = PLT) 289 K/mm3 150-450 N MEAN PLATELET VOLUME (test code = MPV) 9.6 fL 6.7-11.0 N NEUTROPHIL # (test code = NT#) 24.38 K/mm3 1.8-7.7 H LYMPHOCYTE # (test code = LY#) 0.65 K/mm3 1.0-5.0 L MONOCYTE # (test code = MO#) 1.70 K/mm3 0-0.8 H EOSINOPHIL # (test code = EO#) 0.01 K/mm3 0.0-0.5 N BASOPHIL # (test code = BA#) 0.01 K/mm3 0.0-0.2 N MANUAL DIFF REQUIRED (test code = MDIFF) YES STAIN ACCEPTABILITY (test code = STN ACCEPTABLE) TOTAL CELLS COUNTED (test code = TCC) #CELLS SEGMENTED NEUTROPHILS (test code = SEG) % 39-69 LYMPHOCYTE (test code = LYMPH) % 25-55 MONOCYTE (test code = MON) % 0-10 EOSINOPHIL (test code = EOS) % 0.0-5.0 CABOT RINGS (test code = CAB) MORPHOLOGY COMMENT (test code = MOC) PLATELET ESTIMATE (test code = PLTEST) PLATELET MORPHOLOGY (test code = PLTMORPH) CBC W/MANUAL [id number] 10:02:00* Test Item Value Reference Range Interpretation Comments WHITE BLOOD CELL (test code = WBC) 27.0 K/mm3 4.5-12.5 H RED BLOOD CELL (test code = RBC) 3.63 mill/mm3 4.0-5.8 L HEMOGLOBIN (test code = HGB) 10.3 gram/dL 13.0-17.5 L HEMATOCRIT (test code = HCT) 31.4 % 42.0-52.0 L MEAN CELL VOLUME (test code = MCV) 86.5 fL 80-98 N MEAN CELL HGB (test code = MCH) 28.4 picogram 27.0-33.0 N MEAN CELL HGB CONCETRATION (test code = MCHC) 32.8 gram/dL 33.0-36. 0 L RED CELL DISTRIBUTION WIDTH (test code = RDW) 12.6 % 11.6-16. 2 N RED CELL DISTRIBUTION WIDTH SD (test code = RDW-SD) 40.4 fL 37 .0-51.0 N PLATELET COUNT (test code = PLT) 289 K/mm3 150-450 N MEAN PLATELET VOLUME (test code = MPV) 9.6 fL 6.7-11.0 N NEUTROPHIL # (test code = NT#) 24.38 K/mm3 1.8-7.7 H LYMPHOCYTE # (test code = LY#) 0.65 K/mm3 1.0-5.0 L MONOCYTE # (test code = MO#) 1.70 K/mm3 0-0.8 H EOSINOPHIL # (test code = EO#) 0.01 K/mm3 0.0-0.5 N BASOPHIL # (test code = BA#) 0.01 K/mm3 0.0-0.2 N MANUAL DIFF REQUIRED (test code = MDIFF) YES STAIN ACCEPTABILITY (test code = STN ACCEPTABLE) TOTAL CELLS COUNTED (test code = TCC) #CELLS SEGMENTED NEUTROPHILS (test code = SEG) % 39-69 LYMPHOCYTE (test code = LYMPH) % 25-55 MONOCYTE (test code = MON) % 0-10 EOSINOPHIL (test code = EOS) % 0.0-5.0 CABOT RINGS (test code = CAB) MORPHOLOGY COMMENT (test code = MOC) PLATELET ESTIMATE (test code = PLTEST) PLATELET MORPHOLOGY (test code = PLTMORPH) CBC W/MANUAL [id number] 10:02:00* Test Item Value Reference Range Interpretation Comments WHITE BLOOD CELL (test code = WBC) 27.0 K/mm3 4.5-12.5 H RED BLOOD CELL (test code = RBC) 3.63 mill/mm3 4.0-5.8 L HEMOGLOBIN (test code = HGB) 10.3 gram/dL 13.0-17.5 L HEMATOCRIT (test code = HCT) 31.4 % 42.0-52.0 L MEAN CELL VOLUME (test code = MCV) 86.5 fL 80-98 N MEAN CELL HGB (test code = MCH) 28.4 picogram 27.0-33.0 N MEAN CELL HGB CONCETRATION (test code = MCHC) 32.8 gram/dL 33.0-36. 0 L RED CELL DISTRIBUTION WIDTH (test code = RDW) 12.6 % 11.6-16. 2 N RED CELL DISTRIBUTION WIDTH SD (test code = RDW-SD) 40.4 fL 37 .0-51.0 N PLATELET COUNT (test code = PLT) 289 K/mm3 150-450 N MEAN PLATELET VOLUME (test code = MPV) 9.6 fL 6.7-11.0 N NEUTROPHIL # (test code = NT#) 24.38 K/mm3 1.8-7.7 H LYMPHOCYTE # (test code = LY#) 0.65 K/mm3 1.0-5.0 L MONOCYTE # (test code = MO#) 1.70 K/mm3 0-0.8 H EOSINOPHIL # (test code = EO#) 0.01 K/mm3 0.0-0.5 N BASOPHIL # (test code = BA#) 0.01 K/mm3 0.0-0.2 N MANUAL DIFF REQUIRED (test code = MDIFF) YES STAIN ACCEPTABILITY (test code = STN ACCEPTABLE) TOTAL CELLS COUNTED (test code = TCC) #CELLS SEGMENTED NEUTROPHILS (test code = SEG) % 39-69 LYMPHOCYTE (test code = LYMPH) % 25-55 MONOCYTE (test code = MON) % 0-10 EOSINOPHIL (test code = EOS) % 0.0-5.0 MORPHOLOGY COMMENT (test code = MOC) PLATELET ESTIMATE (test code = PLTEST) PLATELET MORPHOLOGY (test code = PLTMORPH) CBC W/MANUAL [id number] 10:02:00* Test Item Value Reference Range Interpretation Comments WHITE BLOOD CELL (test code = WBC) 27.0 K/mm3 4.5-12.5 H RED BLOOD CELL (test code = RBC) 3.63 mill/mm3 4.0-5.8 L HEMOGLOBIN (test code = HGB) 10.3 gram/dL 13.0-17.5 L HEMATOCRIT (test code = HCT) 31.4 % 42.0-52.0 L MEAN CELL VOLUME (test code = MCV) 86.5 fL 80-98 N MEAN CELL HGB (test code = MCH) 28.4 picogram 27.0-33.0 N MEAN CELL HGB CONCETRATION (test code = MCHC) 32.8 gram/dL 33.0-36. 0 L RED CELL DISTRIBUTION WIDTH (test code = RDW) 12.6 % 11.6-16. 2 N RED CELL DISTRIBUTION WIDTH SD (test code = RDW-SD) 40.4 fL 37 .0-51.0 N PLATELET COUNT (test code = PLT) 289 K/mm3 150-450 N MEAN PLATELET VOLUME (test code = MPV) 9.6 fL 6.7-11.0 N NEUTROPHIL # (test code = NT#) 24.38 K/mm3 1.8-7.7 H LYMPHOCYTE # (test code = LY#) 0.65 K/mm3 1.0-5.0 L MONOCYTE # (test code = MO#) 1.70 K/mm3 0-0.8 H EOSINOPHIL # (test code = EO#) 0.01 K/mm3 0.0-0.5 N BASOPHIL # (test code = BA#) 0.01 K/mm3 0.0-0.2 N MANUAL DIFF REQUIRED (test code = MDIFF) YES STAIN ACCEPTABILITY (test code = STN ACCEPTABLE) TOTAL CELLS COUNTED (test code = TCC) #CELLS SEGMENTED NEUTROPHILS (test code = SEG) % 39-69 LYMPHOCYTE (test code = LYMPH) % 25-55 MONOCYTE (test code = MON) % 0-10 EOSINOPHIL (test code = EOS) % 0.0-5.0 CABOT RINGS (test code = CAB) MORPHOLOGY COMMENT (test code = MOC) PLATELET ESTIMATE (test code = PLTEST) PLATELET MORPHOLOGY (test code = PLTMORPH) - XR CHEST 1 [id number] 09:56:00 Name: BREE ASHTON [facility] : 1975 Age/S:43 /M [address] [facility] Unit#:[id number] Loc: [place] [address] Phys: Tracy Cage MD Dis Date: PHONE #: [phone] Status: REG ER FAX #: [phone] Exam Date: 02/13/2019 Reason: CODE SEPSIS EXAMS: CPT CODE: [id number] XR CHEST 1 V [id number] REASON FOR EXAM: CODE SEPSIS Exam Order Date: 02/13/2019 9:32 AM Ordering M.D.: Tracy Cage MD PROCEDURE: - XR CHEST 1 V COMPARISON: Frontal chest x-ray February 11, 2019 FINDINGS: The lungs are clear. There is no pleural effusion or pneumothorax. Pulmonary vascularity is within normal limits. Cardiomediastinal silhouette is normal in size for technique. The mediastinal contours are within normal limits. Musculoskeletal structures are within normal limits. Prior cholecystectomy. IMPRESSION: No acute cardiopulmonary process. Location: [facility] Signed by Mulugeta Espinoza MD on 02/13/2019 at 0956 Reported and signed by: Mulugeta Espinoza MD CC: Tracy Cage MD; Keeley Beckman DO Technologist: Stone Lund RT(R)(CT) Trnscrpt Data: 02/13/2019 (0956) [email or web address] Orig Print D/T: S: 02/13/2019 (2355) PAGE 1 Signed Report [id number] 16:17:00* Test Item Value Reference Range Interpretation Comments GLUBED (test code = GLUBED) 187 mg/dL 74-106 H Performed by certified ground transportation operator at [facility] [id number] 11:57:00* Test Item Value Reference Range Interpretation Comments GLUBED (test code = GLUBED) 147 mg/dL 74-106 H Performed by certified ground transportation operator at [facility] [id number] 07:34:00* Test Item Value Reference Range Interpretation Comments GLUBED (test code = GLUBED) 110 mg/dL 74-106 H Performed by certified ground transportation operator at [facility] CBC W/MANUAL [id number] 05:59:00* Test Item Value Reference Range Interpretation Comments WHITE BLOOD CELL (test code = WBC) 23.9 K/mm3 4.5-12.5 H RED BLOOD CELL (test code = RBC) 3.61 mill/mm3 4.0-5.8 L HEMOGLOBIN (test code = HGB) 10.3 gram/dL 13.0-17.5 L HEMATOCRIT (test code = HCT) 31.5 % 42.0-52.0 L MEAN CELL VOLUME (test code = MCV) 87.3 fL 80-98 N MEAN CELL HGB (test code = MCH) 28.5 picogram 27.0-33.0 N MEAN CELL HGB CONCETRATION (test code = MCHC) 32.7 gram/dL 33.0-36. 0 L RED CELL DISTRIBUTION WIDTH (test code = RDW) 12.2 % 11.6-16. 2 N RED CELL DISTRIBUTION WIDTH SD (test code = RDW-SD) 39.3 fL 37 .0-51.0 N PLATELET COUNT (test code = PLT) 278 K/mm3 150-450 N MEAN PLATELET VOLUME (test code = MPV) 10.1 fL 6.7-11.0 N IMMATURE GRANULOCYTE % (test code = IG%) 1.3 % 0.0-5.0 N NUCLEATED RBC % (test code = NRBC%) 0.0 % 0-0 N NEUTROPHIL # (test code = NT#) 18.82 K/mm3 1.8-7.7 H IMMATURE GRANULOCYTE # (test code = IG#) 0.32 x10 3/uL 0-0.03 H LYMPHOCYTE # (test code = LY#) 1.58 K/mm3 1.0-5.0 N MONOCYTE # (test code = MO#) 3.05 K/mm3 0-0.8 H EOSINOPHIL # (test code = EO#) 0.03 K/mm3 0.0-0.5 N BASOPHIL # (test code = BA#) 0.05 K/mm3 0.0-0.2 N NUCLEATED RBC # (test code = NRBC#) 0.00 K/mm3 0.0-0.1 N MANUAL DIFF REQUIRED (test code = MDIFF) YES STAIN ACCEPTABILITY (test code = STN ACCEPTABLE) STAIN ACCEPTABLE TOTAL CELLS COUNTED (test code = TCC) 115 #CELLS SEGMENTED NEUTROPHILS (test code = SEG) 78.2 % 39-69 H BAND NEUTROPHIL (test code = BAND) 0.9 % 0-10 N LYMPHOCYTE (test code = LYMPH) 6.9 % 25-55 L REACTIVE LYMPH (test code = RELYMPH) 0.9 % MONOCYTE (test code = MON) 12.2 % 0-10 H EOSINOPHIL (test code = EOS) 0.9 % 0.0-5.0 N BASOPHIL (test code = BASO) 0 % 0-1.0 N METAMYELOCYTE (test code = META) 0 % 0-0 N MYELOCYTE (test code = MYELO) 0 % 0.0-0.0 N PROMYELOCYTE (test code = PROM) 0 % 0-0 N ANISOCYTOSIS (test code = ANISO) 1+ MICROCYTOSIS (test code = MICR) 1+ PLATELET ESTIMATE (test code = PLTEST) ADEQUATE PLATELET MORPHOLOGY (test code = PLTMORPH) NORMAL IMMATURE FORMS (test code = IMMAT) 0 % 0-0 N BASIC METABOLIC [id number] 05:25:00* Test Item Value Reference Range Interpretation Comments SODIUM (test code = NA) 138 mmol/L 136-145 N POTASSIUM (test code = K) 2.7 mmol/L 3.5-5.1 [facility] kvng called to [id number] by VDonLABISAIAH 02/12/19 [id number] results verified and read back by Nurse? Y CHLORIDE (test code = CL) 100.0 mmol/L 98-107 N CARBON DIOXIDE (test code = CO2) 31.0 mmol/L 21-32 N ANION GAP (test code = GAP) 9.7 10-20 L GLUCOSE (test code = GLU) 76 mg/dL 74-106 N BLOOD UREA NITROGEN (test code = BUN) 11 mg/dL 7-18 N GLOMERULAR FILTRATION RATE (test code = GFR) > 60 mL/min >=60 Estimated GFR by using Modified MDRD formula.Chronic kidney disease is defined as either kidney damageor GFR <60 mL/min/1.73 m2 for >3 months. CREATININE (test code = CREAT) 1.00 mg/dL 0.7-1.3 N BUN/CREATININE RATIO (test code = BUN/CREA) 11.1 10-20 N CALCIUM (test code = CA) 8.4 mg/dL 8.5-10.1 L CBC W/MANUAL [id number] 05:04:00* Test Item Value Reference Range Interpretation Comments WHITE BLOOD CELL (test code = WBC) 23.9 K/mm3 4.5-12.5 H RED BLOOD CELL (test code = RBC) 3.61 mill/mm3 4.0-5.8 L HEMOGLOBIN (test code = HGB) 10.3 gram/dL 13.0-17.5 L HEMATOCRIT (test code = HCT) 31.5 % 42.0-52.0 L MEAN CELL VOLUME (test code = MCV) 87.3 fL 80-98 N MEAN CELL HGB (test code = MCH) 28.5 picogram 27.0-33.0 N MEAN CELL HGB CONCETRATION (test code = MCHC) 32.7 gram/dL 33.0-36. 0 L RED CELL DISTRIBUTION WIDTH (test code = RDW) 12.2 % 11.6-16. 2 N RED CELL DISTRIBUTION WIDTH SD (test code = RDW-SD) 39.3 fL 37 .0-51.0 N PLATELET COUNT (test code = PLT) 278 K/mm3 150-450 N MEAN PLATELET VOLUME (test code = MPV) 10.1 fL 6.7-11.0 N IMMATURE GRANULOCYTE % (test code = IG%) 1.3 % 0.0-5.0 N NUCLEATED RBC % (test code = NRBC%) 0.0 % 0-0 N NEUTROPHIL # (test code = NT#) 18.82 K/mm3 1.8-7.7 H IMMATURE GRANULOCYTE # (test code = IG#) 0.32 x10 3/uL 0-0.03 H LYMPHOCYTE # (test code = LY#) 1.58 K/mm3 1.0-5.0 N MONOCYTE # (test code = MO#) 3.05 K/mm3 0-0.8 H EOSINOPHIL # (test code = EO#) 0.03 K/mm3 0.0-0.5 N BASOPHIL # (test code = BA#) 0.05 K/mm3 0.0-0.2 N NUCLEATED RBC # (test code = NRBC#) 0.00 K/mm3 0.0-0.1 N MANUAL DIFF REQUIRED (test code = MDIFF) YES STAIN ACCEPTABILITY (test code = STN ACCEPTABLE) TOTAL CELLS COUNTED (test code = TCC) #CELLS SEGMENTED NEUTROPHILS (test code = SEG) % 39-69 LYMPHOCYTE (test code = LYMPH) % 25-55 MONOCYTE (test code = MON) % 0-10 EOSINOPHIL (test code = EOS) % 0.0-5.0 CABOT RINGS (test code = CAB) MORPHOLOGY COMMENT (test code = MOC) PLATELET ESTIMATE (test code = PLTEST) PLATELET MORPHOLOGY (test code = PLTMORPH) CBC W/MANUAL [id number] 05:04:00* Test Item Value Reference Range Interpretation Comments WHITE BLOOD CELL (test code = WBC) 23.9 K/mm3 4.5-12.5 H RED BLOOD CELL (test code = RBC) 3.61 mill/mm3 4.0-5.8 L HEMOGLOBIN (test code = HGB) 10.3 gram/dL 13.0-17.5 L HEMATOCRIT (test code = HCT) 31.5 % 42.0-52.0 L MEAN CELL VOLUME (test code = MCV) 87.3 fL 80-98 N MEAN CELL HGB (test code = MCH) 28.5 picogram 27.0-33.0 N MEAN CELL HGB CONCETRATION (test code = MCHC) 32.7 gram/dL 33.0-36. 0 L RED CELL DISTRIBUTION WIDTH (test code = RDW) 12.2 % 11.6-16. 2 N RED CELL DISTRIBUTION WIDTH SD (test code = RDW-SD) 39.3 fL 37 .0-51.0 N PLATELET COUNT (test code = PLT) 278 K/mm3 150-450 N MEAN PLATELET VOLUME (test code = MPV) 10.1 fL 6.7-11.0 N IMMATURE GRANULOCYTE % (test code = IG%) 1.3 % 0.0-5.0 N NUCLEATED RBC % (test code = NRBC%) 0.0 % 0-0 N NEUTROPHIL # (test code = NT#) 18.82 K/mm3 1.8-7.7 H IMMATURE GRANULOCYTE # (test code = IG#) 0.32 x10 3/uL 0-0.03 H LYMPHOCYTE # (test code = LY#) 1.58 K/mm3 1.0-5.0 N MONOCYTE # (test code = MO#) 3.05 K/mm3 0-0.8 H EOSINOPHIL # (test code = EO#) 0.03 K/mm3 0.0-0.5 N BASOPHIL # (test code = BA#) 0.05 K/mm3 0.0-0.2 N NUCLEATED RBC # (test code = NRBC#) 0.00 K/mm3 0.0-0.1 N MANUAL DIFF REQUIRED (test code = MDIFF) YES STAIN ACCEPTABILITY (test code = STN ACCEPTABLE) TOTAL CELLS COUNTED (test code = TCC) #CELLS SEGMENTED NEUTROPHILS (test code = SEG) % 39-69 LYMPHOCYTE (test code = LYMPH) % 25-55 MONOCYTE (test code = MON) % 0-10 EOSINOPHIL (test code = EOS) % 0.0-5.0 CABOT RINGS (test code = CAB) MORPHOLOGY COMMENT (test code = MOC) PLATELET ESTIMATE (test code = PLTEST) PLATELET MORPHOLOGY (test code = PLTMORPH) CBC W/MANUAL [id number] 05:04:00* Test Item Value Reference Range Interpretation Comments WHITE BLOOD CELL (test code = WBC) 23.9 K/mm3 4.5-12.5 H RED BLOOD CELL (test code = RBC) 3.61 mill/mm3 4.0-5.8 L HEMOGLOBIN (test code = HGB) 10.3 gram/dL 13.0-17.5 L HEMATOCRIT (test code = HCT) 31.5 % 42.0-52.0 L MEAN CELL VOLUME (test code = MCV) 87.3 fL 80-98 N MEAN CELL HGB (test code = MCH) 28.5 picogram 27.0-33.0 N MEAN CELL HGB CONCETRATION (test code = MCHC) 32.7 gram/dL 33.0-36. 0 L RED CELL DISTRIBUTION WIDTH (test code = RDW) 12.2 % 11.6-16. 2 N RED CELL DISTRIBUTION WIDTH SD (test code = RDW-SD) 39.3 fL 37 .0-51.0 N PLATELET COUNT (test code = PLT) 278 K/mm3 150-450 N MEAN PLATELET VOLUME (test code = MPV) 10.1 fL 6.7-11.0 N IMMATURE GRANULOCYTE % (test code = IG%) 1.3 % 0.0-5.0 N NUCLEATED RBC % (test code = NRBC%) 0.0 % 0-0 N NEUTROPHIL # (test code = NT#) 18.82 K/mm3 1.8-7.7 H IMMATURE GRANULOCYTE # (test code = IG#) 0.32 x10 3/uL 0-0.03 H LYMPHOCYTE # (test code = LY#) 1.58 K/mm3 1.0-5.0 N MONOCYTE # (test code = MO#) 3.05 K/mm3 0-0.8 H EOSINOPHIL # (test code = EO#) 0.03 K/mm3 0.0-0.5 N BASOPHIL # (test code = BA#) 0.05 K/mm3 0.0-0.2 N NUCLEATED RBC # (test code = NRBC#) 0.00 K/mm3 0.0-0.1 N MANUAL DIFF REQUIRED (test code = MDIFF) YES STAIN ACCEPTABILITY (test code = STN ACCEPTABLE) TOTAL CELLS COUNTED (test code = TCC) #CELLS SEGMENTED NEUTROPHILS (test code = SEG) % 39-69 LYMPHOCYTE (test code = LYMPH) % 25-55 MONOCYTE (test code = MON) % 0-10 EOSINOPHIL (test code = EOS) % 0.0-5.0 MORPHOLOGY COMMENT (test code = MOC) PLATELET ESTIMATE (test code = PLTEST) PLATELET MORPHOLOGY (test code = PLTMORPH) CBC W/MANUAL [id number] 05:04:00* Test Item Value Reference Range Interpretation Comments WHITE BLOOD CELL (test code = WBC) 23.9 K/mm3 4.5-12.5 H RED BLOOD CELL (test code = RBC) 3.61 mill/mm3 4.0-5.8 L HEMOGLOBIN (test code = HGB) 10.3 gram/dL 13.0-17.5 L HEMATOCRIT (test code = HCT) 31.5 % 42.0-52.0 L MEAN CELL VOLUME (test code = MCV) 87.3 fL 80-98 N MEAN CELL HGB (test code = MCH) 28.5 picogram 27.0-33.0 N MEAN CELL HGB CONCETRATION (test code = MCHC) 32.7 gram/dL 33.0-36. 0 L RED CELL DISTRIBUTION WIDTH (test code = RDW) 12.2 % 11.6-16. 2 N RED CELL DISTRIBUTION WIDTH SD (test code = RDW-SD) 39.3 fL 37 .0-51.0 N PLATELET COUNT (test code = PLT) 278 K/mm3 150-450 N MEAN PLATELET VOLUME (test code = MPV) 10.1 fL 6.7-11.0 N IMMATURE GRANULOCYTE % (test code = IG%) 1.3 % 0.0-5.0 N NUCLEATED RBC % (test code = NRBC%) 0.0 % 0-0 N NEUTROPHIL # (test code = NT#) 18.82 K/mm3 1.8-7.7 H IMMATURE GRANULOCYTE # (test code = IG#) 0.32 x10 3/uL 0-0.03 H LYMPHOCYTE # (test code = LY#) 1.58 K/mm3 1.0-5.0 N MONOCYTE # (test code = MO#) 3.05 K/mm3 0-0.8 H EOSINOPHIL # (test code = EO#) 0.03 K/mm3 0.0-0.5 N BASOPHIL # (test code = BA#) 0.05 K/mm3 0.0-0.2 N NUCLEATED RBC # (test code = NRBC#) 0.00 K/mm3 0.0-0.1 N MANUAL DIFF REQUIRED (test code = MDIFF) YES STAIN ACCEPTABILITY (test code = STN ACCEPTABLE) TOTAL CELLS COUNTED (test code = TCC) #CELLS SEGMENTED NEUTROPHILS (test code = SEG) % 39-69 LYMPHOCYTE (test code = LYMPH) % 25-55 MONOCYTE (test code = MON) % 0-10 MORPHOLOGY COMMENT (test code = MOC) PLATELET ESTIMATE (test code = PLTEST) PLATELET MORPHOLOGY (test code = PLTMORPH) CBC W/MANUAL [id number] 05:04:00* Test Item Value Reference Range Interpretation Comments WHITE BLOOD CELL (test code = WBC) 23.9 K/mm3 4.5-12.5 H RED BLOOD CELL (test code = RBC) 3.61 mill/mm3 4.0-5.8 L HEMOGLOBIN (test code = HGB) 10.3 gram/dL 13.0-17.5 L HEMATOCRIT (test code = HCT) 31.5 % 42.0-52.0 L MEAN CELL VOLUME (test code = MCV) 87.3 fL 80-98 N MEAN CELL HGB (test code = MCH) 28.5 picogram 27.0-33.0 N MEAN CELL HGB CONCETRATION (test code = MCHC) 32.7 gram/dL 33.0-36. 0 L RED CELL DISTRIBUTION WIDTH (test code = RDW) 12.2 % 11.6-16. 2 N RED CELL DISTRIBUTION WIDTH SD (test code = RDW-SD) 39.3 fL 37 .0-51.0 N PLATELET COUNT (test code = PLT) 278 K/mm3 150-450 N MEAN PLATELET VOLUME (test code = MPV) 10.1 fL 6.7-11.0 N IMMATURE GRANULOCYTE % (test code = IG%) 1.3 % 0.0-5.0 N NUCLEATED RBC % (test code = NRBC%) 0.0 % 0-0 N NEUTROPHIL # (test code = NT#) 18.82 K/mm3 1.8-7.7 H IMMATURE GRANULOCYTE # (test code = IG#) 0.32 x10 3/uL 0-0.03 H LYMPHOCYTE # (test code = LY#) 1.58 K/mm3 1.0-5.0 N MONOCYTE # (test code = MO#) 3.05 K/mm3 0-0.8 H EOSINOPHIL # (test code = EO#) 0.03 K/mm3 0.0-0.5 N BASOPHIL # (test code = BA#) 0.05 K/mm3 0.0-0.2 N NUCLEATED RBC # (test code = NRBC#) 0.00 K/mm3 0.0-0.1 N MANUAL DIFF REQUIRED (test code = MDIFF) YES STAIN ACCEPTABILITY (test code = STN ACCEPTABLE) TOTAL CELLS COUNTED (test code = TCC) #CELLS SEGMENTED NEUTROPHILS (test code = SEG) % 39-69 LYMPHOCYTE (test code = LYMPH) % 25-55 MONOCYTE (test code = MON) % 0-10 EOSINOPHIL (test code = EOS) % 0.0-5.0 CABOT RINGS (test code = CAB) MORPHOLOGY COMMENT (test code = MOC) PLATELET ESTIMATE (test code = PLTEST) PLATELET MORPHOLOGY (test code = PLTMORPH) PROCALCITONIN (PCT)[id number] 19:58:00* Test Item Value Reference Range Interpretation Comments PROCALCITONIN (PCT) (test code = PROCAL) 0.20 ng/ml Concentration Interpretation (ng/mL) <0.51 Sepsis is not likely. Local bacterial infection is possible. (LOW RISK for progression to Sepsis) 0.51 - 2.00 Sepsis is possible, but other conditions are known to elevate PCT as well. (MODERATE RISK for progression to Sepsis) > 2.00 Sepsis is likely, unless other causes are known. (HIGH RISK for progression to Severe Sepsis or Septic Shock) 10.00 High likelihood of Severe Sepsis or Septic or higher Shock. *Increased PCT levels may not always be related to systemic bacterial infection.*Low PCT levels do not automatically exclude the presence of bacterial infection.*All results should be interpreted taking into account the patients history. [id number] 19:42:00* Test Item Value Reference Range Interpretation Comments GLUBED (test code = GLUBED) 131 mg/dL 74-106 H Performed by certified ground transportation operator at [facility] LACTIC [id number] 19:38:00* Test Item Value Reference Range Interpretation Comments LACTIC ACID (test code = LACT) 0.7 mmol/L 0.4-1.9 N [id number] 18:44:00* Test Item Value Reference Range Interpretation Comments GLUBED (test code = GLUBED) 129 mg/dL 74-106 H Performed by certified ground transportation operator at [facility] [id number] 16:34:00* Test Item Value Reference Range Interpretation Comments GLUBED (test code = GLUBED) 66 mg/dL 74-106 L Performed by certified ground transportation operator at [facility] [id number] 12:07:00* Test Item Value Reference Range Interpretation Comments GLUBED (test code = GLUBED) 285 mg/dL 74-106 H Performed by certified ground transportation operator at [facility] - XR CHEST 1 [id number] 08:53:00 FAX: Faith Cook MD [phone] [place]: [address] St: ADM FAX: Y ShelleyRiley [phone] Name: BREE ASHTON [facility] : 1975 Age/S: 43/M [address] [facility] Unit #: [id number] Loc: V.[address] [place] [address] Phys: Faith Roy MD Acct: [id number] Dis Date: Status: ADM IN PHONE #: [phone] Exam Date: 02/11/2019829 FAX #: [phone] Reason: Leukocytosis EXAMS: CPT CODE: [id number] XR CHEST 1 V 77687 HISTORY: Leukocytosis. COMPARISON: January 12, 2018. Location: [facility]. No acute infiltrates, effusion or congestion is noted. Mild cardiomegaly. IMPRESSION: No acute infiltrates, effusion or congestion. at 0853 Reported and signed by: Alexandr Pacheco M.D. CC: Faith Roy MD; Riley Beckman DO Technologist: BERNABE Diez Trnscrd Date/Time/By: 02/11/2019 (0853) : By: [email or web address] Orig Print D/T: S: 02/11/2019 (0856) PAGE 1 Signed Report [id number] 07:52:00* Test Item Value Reference Range Interpretation Comments GLUBED (test code = GLUBED) 293 mg/dL 74-106 H Performed by certified ground transportation operator at [facility] CBC W/MANUAL [id number] 06:45:00* Test Item Value Reference Range Interpretation Comments WHITE BLOOD CELL (test code = WBC) 17.9 K/mm3 4.5-12.5 H RED BLOOD CELL (test code = RBC) 3.64 mill/mm3 4.0-5.8 L HEMOGLOBIN (test code = HGB) 10.4 gram/dL 13.0-17.5 L HEMATOCRIT (test code = HCT) 31.9 % 42.0-52.0 L MEAN CELL VOLUME (test code = MCV) 87.6 fL 80-98 N MEAN CELL HGB (test code = MCH) 28.6 picogram 27.0-33.0 N MEAN CELL HGB CONCETRATION (test code = MCHC) 32.6 gram/dL 33.0-36. 0 L RED CELL DISTRIBUTION WIDTH (test code = RDW) 12.3 % 11.6-16. 2 N RED CELL DISTRIBUTION WIDTH SD (test code = RDW-SD) 39.9 fL 37 .0-51.0 N PLATELET COUNT (test code = PLT) 274 K/mm3 150-450 N MEAN PLATELET VOLUME (test code = MPV) 10.4 fL 6.7-11.0 N IMMATURE GRANULOCYTE % (test code = IG%) 0.6 % 0.0-5.0 N NUCLEATED RBC % (test code = NRBC%) 0.0 % 0-0 N NEUTROPHIL # (test code = NT#) 13.68 K/mm3 1.8-7.7 H IMMATURE GRANULOCYTE # (test code = IG#) 0.11 x10 3/uL 0-0.03 H LYMPHOCYTE # (test code = LY#) 1.55 K/mm3 1.0-5.0 N MONOCYTE # (test code = MO#) 2.41 K/mm3 0-0.8 H EOSINOPHIL # (test code = EO#) 0.05 K/mm3 0.0-0.5 N BASOPHIL # (test code = BA#) 0.05 K/mm3 0.0-0.2 N NUCLEATED RBC # (test code = NRBC#) 0.00 K/mm3 0.0-0.1 N MANUAL DIFF REQUIRED (test code = MDIFF) YES STAIN ACCEPTABILITY (test code = STN ACCEPTABLE) STAIN ACCEPTABLE TOTAL CELLS COUNTED (test code = TCC) 115 #CELLS SEGMENTED NEUTROPHILS (test code = SEG) 80.9 % 39-69 H BAND NEUTROPHIL (test code = BAND) 0 % 0-10 N LYMPHOCYTE (test code = LYMPH) 14.8 % 25-55 L REACTIVE LYMPH (test code = RELYMPH) 0 % MONOCYTE (test code = MON) 4.3 % 0-10 N EOSINOPHIL (test code = EOS) 0 % 0.0-5.0 N BASOPHIL (test code = BASO) 0 % 0-1.0 N METAMYELOCYTE (test code = META) 0 % 0-0 N MYELOCYTE (test code = MYELO) 0 % 0.0-0.0 N PROMYELOCYTE (test code = PROM) 0 % 0-0 N ANISOCYTOSIS (test code = ANISO) 1+ MICROCYTOSIS (test code = MICR) 1+ PLATELET ESTIMATE (test code = PLTEST) ADEQUATE PLATELET MORPHOLOGY (test code = PLTMORPH) NORMAL IMMATURE FORMS (test code = IMMAT) 0 % 0-0 N BASIC METABOLIC [id number] 06:37:00* Test Item Value Reference Range Interpretation Comments SODIUM (test code = NA) 137 mmol/L 136-145 N POTASSIUM (test code = K) 3.4 mmol/L 3.5-5.1 L CHLORIDE (test code = CL) 98.0 mmol/L 98-107 N CARBON DIOXIDE (test code = CO2) 29.0 mmol/L 21-32 N ANION GAP (test code = GAP) 13.4 10-20 N GLUCOSE (test code = GLU) 304 mg/dL 74-106 H BLOOD UREA NITROGEN (test code = BUN) 15 mg/dL 7-18 N GLOMERULAR FILTRATION RATE (test code = GFR) > 60 mL/min >=60 Estimated GFR by using Modified MDRD formula.Chronic kidney disease is defined as either kidney damageor GFR <60 mL/min/1.73 m2 for >3 months. CREATININE (test code = CREAT) 1.10 mg/dL 0.7-1.3 N BUN/CREATININE RATIO (test code = BUN/CREA) 14.2 10-20 N CALCIUM (test code = CA) 8.6 mg/dL 8.5-10.1 N BASIC METABOLIC [id number] 06:31:00* Test Item Value Reference Range Interpretation Comments SODIUM (test code = NA) 137 mmol/L 136-145 N POTASSIUM (test code = K) 3.4 mmol/L 3.5-5.1 L CHLORIDE (test code = CL) 98.0 mmol/L 98-107 N CARBON DIOXIDE (test code = CO2) mmol/L 21-32 ANION GAP (test code = GAP) 10-20 GLUCOSE (test code = GLU) mg/dL 74-106 BLOOD UREA NITROGEN (test code = BUN) mg/dL 7-18 GLOMERULAR FILTRATION RATE (test code = GFR) mL/min >=60 CREATININE (test code = CREAT) mg/dL 0.7-1.3 BUN/CREATININE RATIO (test code = BUN/CREA) 10-20 CALCIUM (test code = CA) mg/dL 8.5-10.1 CBC W/MANUAL [id number] 06:18:00* Test Item Value Reference Range Interpretation Comments WHITE BLOOD CELL (test code = WBC) 17.9 K/mm3 4.5-12.5 H RED BLOOD CELL (test code = RBC) 3.64 mill/mm3 4.0-5.8 L HEMOGLOBIN (test code = HGB) 10.4 gram/dL 13.0-17.5 L HEMATOCRIT (test code = HCT) 31.9 % 42.0-52.0 L MEAN CELL VOLUME (test code = MCV) 87.6 fL 80-98 N MEAN CELL HGB (test code = MCH) 28.6 picogram 27.0-33.0 N MEAN CELL HGB CONCETRATION (test code = MCHC) 32.6 gram/dL 33.0-36. 0 L RED CELL DISTRIBUTION WIDTH (test code = RDW) 12.3 % 11.6-16. 2 N RED CELL DISTRIBUTION WIDTH SD (test code = RDW-SD) 39.9 fL 37 .0-51.0 N PLATELET COUNT (test code = PLT) 274 K/mm3 150-450 N MEAN PLATELET VOLUME (test code = MPV) 10.4 fL 6.7-11.0 N IMMATURE GRANULOCYTE % (test code = IG%) 0.6 % 0.0-5.0 N NUCLEATED RBC % (test code = NRBC%) 0.0 % 0-0 N NEUTROPHIL # (test code = NT#) 13.68 K/mm3 1.8-7.7 H IMMATURE GRANULOCYTE # (test code = IG#) 0.11 x10 3/uL 0-0.03 H LYMPHOCYTE # (test code = LY#) 1.55 K/mm3 1.0-5.0 N MONOCYTE # (test code = MO#) 2.41 K/mm3 0-0.8 H EOSINOPHIL # (test code = EO#) 0.05 K/mm3 0.0-0.5 N BASOPHIL # (test code = BA#) 0.05 K/mm3 0.0-0.2 N NUCLEATED RBC # (test code = NRBC#) 0.00 K/mm3 0.0-0.1 N MANUAL DIFF REQUIRED (test code = MDIFF) YES STAIN ACCEPTABILITY (test code = STN ACCEPTABLE) TOTAL CELLS COUNTED (test code = TCC) #CELLS SEGMENTED NEUTROPHILS (test code = SEG) % 39-69 LYMPHOCYTE (test code = LYMPH) % 25-55 MONOCYTE (test code = MON) % 0-10 EOSINOPHIL (test code = EOS) % 0.0-5.0 CABOT RINGS (test code = CAB) MORPHOLOGY COMMENT (test code = MOC) PLATELET ESTIMATE (test code = PLTEST) PLATELET MORPHOLOGY (test code = PLTMORPH) CBC W/MANUAL [id number] 06:18:00* Test Item Value Reference Range Interpretation Comments WHITE BLOOD CELL (test code = WBC) 17.9 K/mm3 4.5-12.5 H RED BLOOD CELL (test code = RBC) 3.64 mill/mm3 4.0-5.8 L HEMOGLOBIN (test code = HGB) 10.4 gram/dL 13.0-17.5 L HEMATOCRIT (test code = HCT) 31.9 % 42.0-52.0 L MEAN CELL VOLUME (test code = MCV) 87.6 fL 80-98 N MEAN CELL HGB (test code = MCH) 28.6 picogram 27.0-33.0 N MEAN CELL HGB CONCETRATION (test code = MCHC) 32.6 gram/dL 33.0-36. 0 L RED CELL DISTRIBUTION WIDTH (test code = RDW) 12.3 % 11.6-16. 2 N RED CELL DISTRIBUTION WIDTH SD (test code = RDW-SD) 39.9 fL 37 .0-51.0 N PLATELET COUNT (test code = PLT) 274 K/mm3 150-450 N MEAN PLATELET VOLUME (test code = MPV) 10.4 fL 6.7-11.0 N IMMATURE GRANULOCYTE % (test code = IG%) 0.6 % 0.0-5.0 N NUCLEATED RBC % (test code = NRBC%) 0.0 % 0-0 N NEUTROPHIL # (test code = NT#) 13.68 K/mm3 1.8-7.7 H IMMATURE GRANULOCYTE # (test code = IG#) 0.11 x10 3/uL 0-0.03 H LYMPHOCYTE # (test code = LY#) 1.55 K/mm3 1.0-5.0 N MONOCYTE # (test code = MO#) 2.41 K/mm3 0-0.8 H EOSINOPHIL # (test code = EO#) 0.05 K/mm3 0.0-0.5 N BASOPHIL # (test code = BA#) 0.05 K/mm3 0.0-0.2 N NUCLEATED RBC # (test code = NRBC#) 0.00 K/mm3 0.0-0.1 N MANUAL DIFF REQUIRED (test code = MDIFF) YES STAIN ACCEPTABILITY (test code = STN ACCEPTABLE) TOTAL CELLS COUNTED (test code = TCC) #CELLS SEGMENTED NEUTROPHILS (test code = SEG) % 39-69 LYMPHOCYTE (test code = LYMPH) % 25-55 MONOCYTE (test code = MON) % 0-10 EOSINOPHIL (test code = EOS) % 0.0-5.0 CABOT RINGS (test code = CAB) MORPHOLOGY COMMENT (test code = MOC) PLATELET ESTIMATE (test code = PLTEST) PLATELET MORPHOLOGY (test code = PLTMORPH) CBC W/MANUAL [id number] 06:18:00* Test Item Value Reference Range Interpretation Comments WHITE BLOOD CELL (test code = WBC) 17.9 K/mm3 4.5-12.5 H RED BLOOD CELL (test code = RBC) 3.64 mill/mm3 4.0-5.8 L HEMOGLOBIN (test code = HGB) 10.4 gram/dL 13.0-17.5 L HEMATOCRIT (test code = HCT) 31.9 % 42.0-52.0 L MEAN CELL VOLUME (test code = MCV) 87.6 fL 80-98 N MEAN CELL HGB (test code = MCH) 28.6 picogram 27.0-33.0 N MEAN CELL HGB CONCETRATION (test code = MCHC) 32.6 gram/dL 33.0-36. 0 L RED CELL DISTRIBUTION WIDTH (test code = RDW) 12.3 % 11.6-16. 2 N RED CELL DISTRIBUTION WIDTH SD (test code = RDW-SD) 39.9 fL 37 .0-51.0 N PLATELET COUNT (test code = PLT) 274 K/mm3 150-450 N MEAN PLATELET VOLUME (test code = MPV) 10.4 fL 6.7-11.0 N IMMATURE GRANULOCYTE % (test code = IG%) 0.6 % 0.0-5.0 N NUCLEATED RBC % (test code = NRBC%) 0.0 % 0-0 N NEUTROPHIL # (test code = NT#) 13.68 K/mm3 1.8-7.7 H IMMATURE GRANULOCYTE # (test code = IG#) 0.11 x10 3/uL 0-0.03 H LYMPHOCYTE # (test code = LY#) 1.55 K/mm3 1.0-5.0 N MONOCYTE # (test code = MO#) 2.41 K/mm3 0-0.8 H EOSINOPHIL # (test code = EO#) 0.05 K/mm3 0.0-0.5 N BASOPHIL # (test code = BA#) 0.05 K/mm3 0.0-0.2 N NUCLEATED RBC # (test code = NRBC#) 0.00 K/mm3 0.0-0.1 N MANUAL DIFF REQUIRED (test code = MDIFF) YES STAIN ACCEPTABILITY (test code = STN ACCEPTABLE) TOTAL CELLS COUNTED (test code = TCC) #CELLS SEGMENTED NEUTROPHILS (test code = SEG) % 39-69 LYMPHOCYTE (test code = LYMPH) % 25-55 MONOCYTE (test code = MON) % 0-10 EOSINOPHIL (test code = EOS) % 0.0-5.0 MORPHOLOGY COMMENT (test code = MOC) PLATELET ESTIMATE (test code = PLTEST) PLATELET MORPHOLOGY (test code = PLTMORPH) CBC W/MANUAL [id number] 06:18:00* Test Item Value Reference Range Interpretation Comments WHITE BLOOD CELL (test code = WBC) 17.9 K/mm3 4.5-12.5 H RED BLOOD CELL (test code = RBC) 3.64 mill/mm3 4.0-5.8 L HEMOGLOBIN (test code = HGB) 10.4 gram/dL 13.0-17.5 L HEMATOCRIT (test code = HCT) 31.9 % 42.0-52.0 L MEAN CELL VOLUME (test code = MCV) 87.6 fL 80-98 N MEAN CELL HGB (test code = MCH) 28.6 picogram 27.0-33.0 N MEAN CELL HGB CONCETRATION (test code = MCHC) 32.6 gram/dL 33.0-36. 0 L RED CELL DISTRIBUTION WIDTH (test code = RDW) 12.3 % 11.6-16. 2 N RED CELL DISTRIBUTION WIDTH SD (test code = RDW-SD) 39.9 fL 37 .0-51.0 N PLATELET COUNT (test code = PLT) 274 K/mm3 150-450 N MEAN PLATELET VOLUME (test code = MPV) 10.4 fL 6.7-11.0 N IMMATURE GRANULOCYTE % (test code = IG%) 0.6 % 0.0-5.0 N NUCLEATED RBC % (test code = NRBC%) 0.0 % 0-0 N NEUTROPHIL # (test code = NT#) 13.68 K/mm3 1.8-7.7 H IMMATURE GRANULOCYTE # (test code = IG#) 0.11 x10 3/uL 0-0.03 H LYMPHOCYTE # (test code = LY#) 1.55 K/mm3 1.0-5.0 N MONOCYTE # (test code = MO#) 2.41 K/mm3 0-0.8 H EOSINOPHIL # (test code = EO#) 0.05 K/mm3 0.0-0.5 N BASOPHIL # (test code = BA#) 0.05 K/mm3 0.0-0.2 N NUCLEATED RBC # (test code = NRBC#) 0.00 K/mm3 0.0-0.1 N MANUAL DIFF REQUIRED (test code = MDIFF) YES STAIN ACCEPTABILITY (test code = STN ACCEPTABLE) TOTAL CELLS COUNTED (test code = TCC) #CELLS SEGMENTED NEUTROPHILS (test code = SEG) % 39-69 LYMPHOCYTE (test code = LYMPH) % 25-55 MONOCYTE (test code = MON) % 0-10 MORPHOLOGY COMMENT (test code = MOC) PLATELET ESTIMATE (test code = PLTEST) PLATELET MORPHOLOGY (test code = PLTMORPH) CBC W/MANUAL [id number] 06:18:00* Test Item Value Reference Range Interpretation Comments WHITE BLOOD CELL (test code = WBC) 17.9 K/mm3 4.5-12.5 H RED BLOOD CELL (test code = RBC) 3.64 mill/mm3 4.0-5.8 L HEMOGLOBIN (test code = HGB) 10.4 gram/dL 13.0-17.5 L HEMATOCRIT (test code = HCT) 31.9 % 42.0-52.0 L MEAN CELL VOLUME (test code = MCV) 87.6 fL 80-98 N MEAN CELL HGB (test code = MCH) 28.6 picogram 27.0-33.0 N MEAN CELL HGB CONCETRATION (test code = MCHC) 32.6 gram/dL 33.0-36. 0 L RED CELL DISTRIBUTION WIDTH (test code = RDW) 12.3 % 11.6-16. 2 N RED CELL DISTRIBUTION WIDTH SD (test code = RDW-SD) 39.9 fL 37 .0-51.0 N PLATELET COUNT (test code = PLT) 274 K/mm3 150-450 N MEAN PLATELET VOLUME (test code = MPV) 10.4 fL 6.7-11.0 N IMMATURE GRANULOCYTE % (test code = IG%) 0.6 % 0.0-5.0 N NUCLEATED RBC % (test code = NRBC%) 0.0 % 0-0 N NEUTROPHIL # (test code = NT#) 13.68 K/mm3 1.8-7.7 H IMMATURE GRANULOCYTE # (test code = IG#) 0.11 x10 3/uL 0-0.03 H LYMPHOCYTE # (test code = LY#) 1.55 K/mm3 1.0-5.0 N MONOCYTE # (test code = MO#) 2.41 K/mm3 0-0.8 H EOSINOPHIL # (test code = EO#) 0.05 K/mm3 0.0-0.5 N BASOPHIL # (test code = BA#) 0.05 K/mm3 0.0-0.2 N NUCLEATED RBC # (test code = NRBC#) 0.00 K/mm3 0.0-0.1 N MANUAL DIFF REQUIRED (test code = MDIFF) YES STAIN ACCEPTABILITY (test code = STN ACCEPTABLE) TOTAL CELLS COUNTED (test code = TCC) #CELLS SEGMENTED NEUTROPHILS (test code = SEG) % 39-69 LYMPHOCYTE (test code = LYMPH) % 25-55 MONOCYTE (test code = MON) % 0-10 EOSINOPHIL (test code = EOS) % 0.0-5.0 CABOT RINGS (test code = CAB) MORPHOLOGY COMMENT (test code = MOC) PLATELET ESTIMATE (test code = PLTEST) PLATELET MORPHOLOGY (test code = PLTMORPH) URINALYSIS [id number] 02:01:00* Test Item Value Reference Range Interpretation Comments UA COLOR (test code = COLU) YELLOW YELLOW UA APPEARANCE (test code = APPU) CLEAR CLEAR UA GLUCOSE DIPSTICK (test code = DGLUU) >1000 (4+) mg/dL NEGATIVE UA BILIRUBIN DIPSTICK (test code = BILU) NEGATIVE mg/dL NEGATIVE UA KETONE DIPSTICK (test code = KETU) 60 (2+) mg/dL NEGATIVE A UA SPECIFIC GRAVITY (test code = SGU) 1.027 1.001-1.035 UA BLOOD DIPSTICK (test code = JOANNE) Negative mg/dL NEGATIVE UA PH DIPSTICK (test code = JOHN) 6.0 5.0-8.0 UA PROTEIN DIPSTICK (test code = PROU) 30 (1+) mg/dL NEGATIVE A UA UROBILINIOGEN DIPSTICK (test code = URO) Normal mg/dL NEGATIVE UA NITRITE DIPSTICK (test code = JOHNSON) NEGATIVE NEGATIVE UA LEUKOCYTE ESTERASE W REFLEX (test code = LEUUR) 250 Jeannine/u L (2+) Jeannine/uL NEGATIVE A UA WBC (test code = WBCU) 51-100 per HPF 0-5 A UA RBC (test code = RBCU) 11-20 #/HPF 0-5 A UA EPITHELIAL CELLS (test code = EPIU) FEW per HPF FEW UA BACTERIA (test code = BACU) NONE SEEN #/HPF NONE UA MUCUS (test code = MUCU) FEW #/LPF FEW NO SPECIMEN RECEIVED IN LAB V.LAB.TS1 02/10/19 2143Urine Source? VoidedSAMPLE TO BE COLLECTED BY NURSEDRUGS OF ABUSE SCREEN [id number] 02:01:00* Test Item Value Reference Range Interpretation Comments URN COCAINE (test code = COCAURN) NEGATIVE <300 ng/mL URN CANNABINOIDS (test code = CANNABURN) POSITIVE <50 ng/mL A This test provides only a preliminary test [...] (e.g., employment testing, legaltesting). URN AMPHETAMINE (test code = AMPHETURN) NEGATIVE <1000 ng/mL URN BARBITURATE (test code = BARBITURN) NEGATIVE <200 ng/mL URN BENZODIAZEPINE (test code = BENZOURN) NEGATIVE <200 ng/mL URN OPIATES (test code = OPIATURN) POSITIVE <300 ng/mL A This test provides only a preliminary test [...] employment testing, legaltesting). URN PHENCYCLIDINE (PCP) (test code = PHENCURN) NEGATIVE <25 ng/ mL URN METHADONE (test code = METHAURN) NEGATIVE <300 ng/mL NO SPECIMEN RECEIVED IN LAB V.LAB.TS1 02/10/19 2143Urine Source? VoidedSAMPLE TO BE COLLECTED BY NURSEURINALYSIS [id number] 01:45:00* Test Item Value Reference Range Interpretation Comments UA COLOR (test code = COLU) YELLOW YELLOW UA APPEARANCE (test code = APPU) CLEAR CLEAR UA GLUCOSE DIPSTICK (test code = DGLUU) >1000 (4+) mg/dL NEGATIVE UA BILIRUBIN DIPSTICK (test code = BILU) NEGATIVE mg/dL NEGATIVE UA KETONE DIPSTICK (test code = KETU) 60 (2+) mg/dL NEGATIVE A UA SPECIFIC GRAVITY (test code = SGU) 1.027 1.001-1.035 UA BLOOD DIPSTICK (test code = JOANNE) Negative mg/dL NEGATIVE UA PH DIPSTICK (test code = JOHN) 6.0 5.0-8.0 UA PROTEIN DIPSTICK (test code = PROU) 30 (1+) mg/dL NEGATIVE A UA UROBILINIOGEN DIPSTICK (test code = URO) Normal mg/dL NEGATIVE UA NITRITE DIPSTICK (test code = JOHNSON) NEGATIVE NEGATIVE UA LEUKOCYTE ESTERASE W REFLEX (test code = LEUUR) 250 Jeannine/u L (2+) Jeannine/uL NEGATIVE A UA WBC (test code = WBCU) 51-100 per HPF 0-5 A UA RBC (test code = RBCU) 11-20 #/HPF 0-5 A UA EPITHELIAL CELLS (test code = EPIU) FEW per HPF FEW UA BACTERIA (test code = BACU) NONE SEEN #/HPF NONE UA MUCUS (test code = MUCU) FEW #/LPF FEW NO SPECIMEN RECEIVED IN LAB V.LAB.TS1 02/10/19 2143Urine Source? VoidedSAMPLE TO BE COLLECTED BY NURSEDRUGS OF ABUSE SCREEN [id number] 01:45:00* Test Item Value Reference Range Interpretation Comments URN COCAINE (test code = COCAURN) <300 ng/mL URN CANNABINOIDS (test code = CANNABURN) <50 ng/mL URN AMPHETAMINE (test code = AMPHETURN) <1000 ng/mL URN BARBITURATE (test code = BARBITURN) <200 ng/mL URN BENZODIAZEPINE (test code = BENZOURN) <200 ng/mL URN OPIATES (test code = OPIATURN) <300 ng/mL URN PHENCYCLIDINE (PCP) (test code = PHENCURN) <25 ng/ mL URN METHADONE (test code = METHAURN) <300 ng/mL NO SPECIMEN RECEIVED IN LAB V.LAB.TS1 02/10/192142Urine Source? VoidedSAMPLE TO BE COLLECTED BY [id number] 23:31:00* Test Item Value Reference Range Interpretation Comments GLUBED (test code = GLUBED) 223 mg/dL 74-106 H Performed by certified ground transportation operator at [facility] [id number] 18:09:00* Test Item Value Reference Range Interpretation Comments GLUBED (test code = GLUBED) 201 mg/dL 74-106 H Performed by certified ground transportation operator at [facility] [id number] 11:27:00* Test Item Value Reference Range Interpretation Comments GLUBED (test code = GLUBED) 291 mg/dL 74-106 H Performed by certified ground transportation operator at [facility] [id number] 08:25:00* Test Item Value Reference Range Interpretation Comments GLUBED (test code = GLUBED) 288 mg/dL 74-106 H Performed by certified ground transportation operator at [facility] - XR ABDOMEN AP 1 [id number] 08:01:00 FAX: Bobby Self MD [place]: B St: ADM FAX: Riley Zavala DO [phone] Name: BREE ASHTON [facility] : 1975 Age/S: 43/M [address] [facility] Unit #: [id number] Loc: V.[address] [place] [address] Phys: Bobby Self MD Acct: [id number] Dis Date: Status: ADM IN PHONE #: [phone] Exam Date: 02/10/2019 0805 FAX #: [phone] Reason: abdominal pain nausea and vomiting EXAMS: CPT CODE: [id number] XR ABDOMEN AP 1 V 63689 HISTORY: abdominal pain nausea and vomiting TECHNIQUE: AP abdomen x-ray COMPARISON: 02/26/18 FINDINGS: Nonspecific nonobstructed bowel gas pattern. No intra-abdominal mass effect. Cholecystectomy clips. Pelvic phleboliths. Mild degenerative changes of the spine and hips. IMPRESSION: No ra diographic evidence of acute intra-abdominal process. LOCATION: LP at 0801 Reported and sig lizette by: Marsha Cueva D.O. CC: Bobby Self MD; Riley Beckman DO Technologist: RT LATA(Kelly) Trnscrd Date/Time/By: 02/10/2019 (0801) : By: [email or web address] Orig Print D/T: S: 02/10/2019 (0815) PAGE 1 Signed Report PROCALCITONIN (PCT)2019-02-10 07:12:00* Test Item Value Reference Range Interpretation Comments PROCALCITONIN (PCT) (test code = PROCAL) 0.09 ng/ml Concentration Interpretation (ng/mL) <0.51 Sepsis is not likely. Local bacterial infection is possible. (LOW RISK for progression to Sepsis) 0.51 - 2.00 Sepsis is possible, but other conditions are known to elevate PCT as well. (MODERATE RISK for progression to Sepsis) > 2.00 Sepsis is likely, unless other causes are known. (HIGH RISK for progression to Severe Sepsis or Septic Shock) 10.00 High likelihood of Severe Sepsis or Septic or higher Shock. *Increased PCT levels may not always be related to systemic bacterial infection.*Low PCT levels do not automatically exclude the presence of bacterial infection.*All results should be interpreted taking into account the patients history. BASIC METABOLIC [id number] 00:47:00* Test Item Value Reference Range Interpretation Comments SODIUM (test code = NA) 137 mmol/L 136-145 N POTASSIUM (test code = K) 3.5 mmol/L 3.5-5.1 N CHLORIDE (test code = CL) 96.0 mmol/L 98-107 L CARBON DIOXIDE (test code = CO2) 31.0 mmol/L 21-32 N ANION GAP (test code = GAP) 13.5 10-20 N GLUCOSE (test code = GLU) 333 mg/dL 74-106 H BLOOD UREA NITROGEN (test code = BUN) 21 mg/dL 7-18 H GLOMERULAR FILTRATION RATE (test code = GFR) > 60 mL/min >=60 Estimated GFR by using Modified MDRD formula.Chronic kidney disease is defined as either kidney damageor GFR <60 mL/min/1.73 m2 for >3 months. CREATININE (test code = CREAT) 1.40 mg/dL 0.7-1.3 H BUN/CREATININE RATIO (test code = BUN/CREA) 15.4 10-20 N CALCIUM (test code = CA) 9.1 mg/dL 8.5-10.1 N HEPATIC FUNCTION [id number] 00:47:00* Test Item Value Reference Range Interpretation Comments TOTAL PROTEIN (test code = PROT) 8.0 gram/dL 6.4-8.2 N ALBUMIN (test code = ALB) 3.6 g/dL 3.4-5.0 N GLOBULIN (test code = GLOB) 4.4 gram/dL 2.7-4.2 H ALBUMIN/GLOBULIN RATIO (test code = A/G) 0.8 0.75-1.50 N BILIRUBIN TOTAL (test code = BILT) 0.60 mg/dL 0.0-1.0 N BILIRUBIN DIRECT (test code = BILD) 0.18 mg/dL 0.0-0.20 N SGOT/AST (test code = AST) 17 IUnit/L 15-37 N SGPT/ALT (test code = ALT) 20 IUnit/L 12-78 N ALKALINE PHOSPHATASE TOTAL (test code = ALKP) 135 IUnit/L 45-117 H Note change in reference range due to change in reagent. [id number] 00:47:00* Test Item Value Reference Range Interpretation Comments LIPASE (test code = LIP) < 10 U/L 73.0-393.0 L CBC W/O [id number] 00:11:00* Test Item Value Reference Range Interpretation Comments WHITE BLOOD CELL (test code = WBC) 16.2 K/mm3 4.5-12.5 H RED BLOOD CELL (test code = RBC) 3.93 mill/mm3 4.0-5.8 L HEMOGLOBIN (test code = HGB) 11.2 gram/dL 13.0-17.5 L HEMATOCRIT (test code = HCT) 34.4 % 42.0-52.0 L MEAN CELL VOLUME (test code = MCV) 87.5 fL 80-98 N MEAN CELL HGB (test code = MCH) 28.5 picogram 27.0-33.0 N MEAN CELL HGB CONCETRATION (test code = MCHC) 32.6 gram/dL 33.0-36. 0 L RED CELL DISTRIBUTION WIDTH (test code = RDW) 12.5 % 11.6-16. 2 N PLATELET COUNT (test code = PLT) 290 K/mm3 150-450 N MEAN PLATELET VOLUME (test code = MPV) 9.7 fL 6.7-11.0 N [id number] 07:24:00* Test Item Value Reference Range Interpretation Comments GLUBED (test code = GLUBED) 269 mg/dL 74-106 H Performed by certified ground transportation operator at [facility] [id number] 20:19:00* Test Item Value Reference Range Interpretation Comments GLUBED (test code = GLUBED) 199 mg/dL 74-106 H Performed by certified ground transportation operator at [facility] [id number] 16:56:00* Test Item Value Reference Range Interpretation Comments GLUBED (test code = GLUBED) 153 mg/dL 74-106 H Performed by certified ground transportation operator at [facility] [id number] 11:42:00* Test Item Value Reference Range Interpretation Comments GLUBED (test code = GLUBED) 231 mg/dL 74-106 H Performed by certified ground transportation operator at [facility] [id number] 08:17:00* Test Item Value Reference Range Interpretation Comments GLUBED (test code = GLUBED) 160 mg/dL 74-106 H Performed by certified ground transportation operator at [facility] CBC W/AUTO [id number] 06:43:00* Test Item Value Reference Range Interpretation Comments WHITE BLOOD CELL (test code = WBC) 10.6 K/mm3 4.5-12.5 N RED BLOOD CELL (test code = RBC) 3.81 mill/mm3 4.0-5.8 L HEMOGLOBIN (test code = HGB) 10.8 gram/dL 13.0-17.5 L HEMATOCRIT (test code = HCT) 34.3 % 42.0-52.0 L MEAN CELL VOLUME (test code = MCV) 90.0 fL 80-98 N MEAN CELL HGB (test code = MCH) 28.3 picogram 27.0-33.0 N MEAN CELL HGB CONCETRATION (test code = MCHC) 31.5 gram/dL 33.0-36. 0 L RED CELL DISTRIBUTION WIDTH (test code = RDW) 13.3 % 11.6-16. 2 N RED CELL DISTRIBUTION WIDTH SD (test code = RDW-SD) 44.1 fL 37 .0-51.0 N PLATELET COUNT (test code = PLT) 235 K/mm3 150-450 N MEAN PLATELET VOLUME (test code = MPV) 10.5 fL 6.7-11.0 N NEUTROPHIL % (test code = NT%) 78.6 % 39.0-69.0 H IMMATURE GRANULOCYTE % (test code = IG%) 0.4 % 0.0-5.0 N LYMPHOCYTE % (test code = LY%) 11.5 % 25.0-55.0 L MONOCYTE % (test code = MO%) 9.1 % 0.0-10.0 N EOSINOPHIL % (test code = EO%) 0.1 % 0.0-5.0 N BASOPHIL % (test code = BA%) 0.3 % 0.0-1.0 N NUCLEATED RBC % (test code = NRBC%) 0.0 % 0-0 N NEUTROPHIL # (test code = NT#) 8.36 K/mm3 1.8-7.7 H IMMATURE GRANULOCYTE # (test code = IG#) 0.04 x10 3/uL 0-0.03 H LYMPHOCYTE # (test code = LY#) 1.22 K/mm3 1.0-5.0 N MONOCYTE # (test code = MO#) 0.97 K/mm3 0-0.8 H EOSINOPHIL # (test code = EO#) 0.01 K/mm3 0.0-0.5 N BASOPHIL # (test code = BA#) 0.03 K/mm3 0.0-0.2 N NUCLEATED RBC # (test code = NRBC#) 0.00 K/mm3 0.0-0.1 N BASIC METABOLIC [id number] 06:43:00* Test Item Value Reference Range Interpretation Comments SODIUM (test code = NA) 142 mmol/L 136-145 N POTASSIUM (test code = K) 3.9 mmol/L 3.5-5.1 N CHLORIDE (test code = CL) 106.0 mmol/L 98-107 N CARBON DIOXIDE (test code = CO2) 25.0 mmol/L 21-32 N ANION GAP (test code = GAP) 14.9 10-20 N GLUCOSE (test code = GLU) 154 mg/dL 74-106 H BLOOD UREA NITROGEN (test code = BUN) 25 mg/dL 7-18 H RESULT VERIFIED BY REPEAT ANALYSIS GLOMERULAR FILTRATION RATE (test code = GFR) > 60 mL/min >=60 Estimated GFR by using Modified MDRD formula.Chronic kidney disease is defined as either kidney damageor GFR <60 mL/min/1.73 m2 for >3 months. CREATININE (test code = CREAT) 1.30 mg/dL 0.7-1.3 N BUN/CREATININE RATIO (test code = BUN/CREA) 19.2 10-20 N CALCIUM (test code = CA) 8.8 mg/dL 8.5-10.1 N BASIC METABOLIC [id number] 06:26:00* Test Item Value Reference Range Interpretation Comments SODIUM (test code = NA) 142 mmol/L 136-145 N POTASSIUM (test code = K) 3.9 mmol/L 3.5-5.1 N CHLORIDE (test code = CL) 106.0 mmol/L 98-107 N CARBON DIOXIDE (test code = CO2) mmol/L 21-32 ANION GAP (test code = GAP) 10-20 GLUCOSE (test code = GLU) mg/dL 74-106 BLOOD UREA NITROGEN (test code = BUN) mg/dL 7-18 GLOMERULAR FILTRATION RATE (test code = GFR) mL/min >=60 CREATININE (test code = CREAT) mg/dL 0.7-1.3 BUN/CREATININE RATIO (test code = BUN/CREA) 10-20 CALCIUM (test code = CA) mg/dL 8.5-10.1 URINALYSIS [id number] 23:07:00* Test Item Value Reference Range Interpretation Comments UA COLOR (test code = COLU) YELLOW YELLOW UA APPEARANCE (test code = APPU) CLEAR CLEAR UA GLUCOSE DIPSTICK (test code = DGLUU) NEGATIVE mg/dL NEGATIVE UA BILIRUBIN DIPSTICK (test code = BILU) NEGATIVE mg/dL NEGATIVE UA KETONE DIPSTICK (test code = KETU) 20 (1+) mg/dL NEGATIVE A UA SPECIFIC GRAVITY (test code = SGU) 1.026 1.001-1.035 UA BLOOD DIPSTICK (test code = JOANNE) Negative mg/dL NEGATIVE UA PH DIPSTICK (test code = JOHN) 6.5 5.0-8.0 UA PROTEIN DIPSTICK (test code = PROU) 30 (1+) mg/dL NEGATIVE A UA UROBILINIOGEN DIPSTICK (test code = URO) Normal mg/dL NEGATIVE UA NITRITE DIPSTICK (test code = JOHNSON) NEGATIVE NEGATIVE UA LEUKOCYTE ESTERASE W REFLEX (test code = LEUUR) 25 Jeannine/uL (Trace) Jeannine/uL NEGATIVE A UA WBC (test code = WBCU) 6-10 per HPF 0-5 A UA RBC (test code = RBCU) 6-10 #/HPF 0-5 A UA EPITHELIAL CELLS (test code = EPIU) FEW per HPF FEW UA BACTERIA (test code = BACU) FEW #/HPF NONE A UA MUCUS (test code = MUCU) MODERATE #/LPF FEW A Urine Source? Clean CatchDRUGS OF ABUSE SCREEN [id number] 23:07:00* Test Item Value Reference Range Interpretation Comments URN COCAINE (test code = COCAURN) NEGATIVE <300 ng/mL URN CANNABINOIDS (test code = CANNABURN) POSITIVE <50 ng/mL A This test provides only a preliminary test [...] (e.g., employment testing, legaltesting). URN AMPHETAMINE (test code = AMPHETURN) NEGATIVE <1000 ng/mL URN BARBITURATE (test code = BARBITURN) NEGATIVE <200 ng/mL URN BENZODIAZEPINE (test code = BENZOURN) NEGATIVE <200 ng/mL URN OPIATES (test code = OPIATURN) POSITIVE <300 ng/mL A This test provides only a preliminary test [...] employment testing, legaltesting). URN PHENCYCLIDINE (PCP) (test code = PHENCURN) NEGATIVE <25 ng/ mL URN METHADONE (test code = METHAURN) NEGATIVE <300 ng/mL Urine Source? Clean CatchURINALYSIS [id number] 22:44:00* Test Item Value Reference Range Interpretation Comments UA COLOR (test code = COLU) YELLOW YELLOW UA APPEARANCE (test code = APPU) CLEAR CLEAR UA GLUCOSE DIPSTICK (test code = DGLUU) NEGATIVE mg/dL NEGATIVE UA BILIRUBIN DIPSTICK (test code = BILU) NEGATIVE mg/dL NEGATIVE UA KETONE DIPSTICK (test code = KETU) 20 (1+) mg/dL NEGATIVE A UA SPECIFIC GRAVITY (test code = SGU) 1.026 1.001-1.035 UA BLOOD DIPSTICK (test code = JOANNE) Negative mg/dL NEGATIVE UA PH DIPSTICK (test code = JOHN) 6.5 5.0-8.0 UA PROTEIN DIPSTICK (test code = PROU) 30 (1+) mg/dL NEGATIVE A UA UROBILINIOGEN DIPSTICK (test code = URO) Normal mg/dL NEGATIVE UA NITRITE DIPSTICK (test code = JOHNSON) NEGATIVE NEGATIVE UA LEUKOCYTE ESTERASE W REFLEX (test code = LEUUR) 25 Jeannine/uL (Trace) Jeannine/uL NEGATIVE A UA WBC (test code = WBCU) 6-10 per HPF 0-5 A UA RBC (test code = RBCU) 6-10 #/HPF 0-5 A UA EPITHELIAL CELLS (test code = EPIU) FEW per HPF FEW UA BACTERIA (test code = BACU) FEW #/HPF NONE A UA MUCUS (test code = MUCU) MODERATE #/LPF FEW A Urine Source? Clean CatchDRUGS OF ABUSE SCREEN [id number] 22:44:00* Test Item Value Reference Range Interpretation Comments URN COCAINE (test code = COCAURN) <300 ng/mL URN CANNABINOIDS (test code = CANNABURN) <50 ng/mL URN AMPHETAMINE (test code = AMPHETURN) <1000 ng/mL URN BARBITURATE (test code = BARBITURN) <200 ng/mL URN BENZODIAZEPINE (test code = BENZOURN) <200 ng/mL URN OPIATES (test code = OPIATURN) <300 ng/mL URN PHENCYCLIDINE (PCP) (test code = PHENCURN) <25 ng/ mL URN METHADONE (test code = METHAURN) <300 ng/mL Urine Source? Clean CatchBASIC METABOLIC [id number] 18:12:00* Test Item Value Reference Range Interpretation Comments SODIUM (test code = NA) 141 mmol/L 136-145 N POTASSIUM (test code = K) 4.2 mmol/L 3.5-5.1 N CHLORIDE (test code = CL) 105.0 mmol/L 98-107 N CARBON DIOXIDE (test code = CO2) 29.0 mmol/L 21-32 N ANION GAP (test code = GAP) 11.2 10-20 N GLUCOSE (test code = GLU) 122 mg/dL 74-106 H BLOOD UREA NITROGEN (test code = BUN) 20 mg/dL 7-18 H GLOMERULAR FILTRATION RATE (test code = GFR) > 60 mL/min >=60 Estimated GFR by using Modified MDRD formula.Chronic kidney disease is defined as either kidney damageor GFR <60 mL/min/1.73 m2 for >3 months. CREATININE (test code = CREAT) 1.50 mg/dL 0.7-1.3 H BUN/CREATININE RATIO (test code = BUN/CREA) 13.4 10-20 N CALCIUM (test code = CA) 10.0 mg/dL 8.5-10.1 N HEPATIC FUNCTION [id number] 18:12:00* Test Item Value Reference Range Interpretation Comments TOTAL PROTEIN (test code = PROT) 9.6 gram/dL 6.4-8.2 H ALBUMIN (test code = ALB) 4.4 g/dL 3.4-5.0 N GLOBULIN (test code = GLOB) 5.2 gram/dL 2.7-4.2 H ALBUMIN/GLOBULIN RATIO (test code = A/G) 0.8 0.75-1.50 N BILIRUBIN TOTAL (test code = BILT) 0.40 mg/dL 0.0-1.0 N BILIRUBIN DIRECT (test code = BILD) 0.14 mg/dL 0.0-0.20 N SGOT/AST (test code = AST) 19 IUnit/L 15-37 N SGPT/ALT (test code = ALT) 32 IUnit/L 12-78 N ALKALINE PHOSPHATASE TOTAL (test code = ALKP) 184 IUnit/L 45-117 H Note change in reference range due to change in reagent. [id number] 18:12:00* Test Item Value Reference Range Interpretation Comments LIPASE (test code = LIP) < 10 U/L 73.0-393.0 L BASIC METABOLIC [id number] 18:04:00* Test Item Value Reference Range Interpretation Comments SODIUM (test code = NA) 141 mmol/L 136-145 N POTASSIUM (test code = K) 4.2 mmol/L 3.5-5.1 N CHLORIDE (test code = CL) 105.0 mmol/L 98-107 N CARBON DIOXIDE (test code = CO2) mmol/L 21-32 ANION GAP (test code = GAP) 10-20 GLUCOSE (test code = GLU) mg/dL 74-106 BLOOD UREA NITROGEN (test code = BUN) mg/dL 7-18 GLOMERULAR FILTRATION RATE (test code = GFR) mL/min >=60 CREATININE (test code = CREAT) mg/dL 0.7-1.3 BUN/CREATININE RATIO (test code = BUN/CREA) 10-20 CALCIUM (test code = CA) mg/dL 8.5-10.1 HEPATIC FUNCTION [id number] 18:04:00* Test Item Value Reference Range Interpretation Comments TOTAL PROTEIN (test code = PROT) gram/dL 6.4-8.2 ALBUMIN (test code = ALB) g/dL 3.4-5.0 GLOBULIN (test code = GLOB) gram/dL 2.7-4.2 ALBUMIN/GLOBULIN RATIO (test code = A/G) 0.75-1.50 BILIRUBIN TOTAL (test code = BILT) mg/dL 0.0-1.0 BILIRUBIN DIRECT (test code = BILD) mg/dL 0.0-0.20 SGOT/AST (test code = AST) IUnit/L 15-37 SGPT/ALT (test code = ALT) IUnit/L 12-78 ALKALINE PHOSPHATASE TOTAL (test code = ALKP) IUnit/L 45-117 [id number] 18:04:00* Test Item Value Reference Range Interpretation Comments LIPASE (test code = LIP) U/L 73.0-393.0 CBC W/O [id number] 18:00:00* Test Item Value Reference Range Interpretation Comments WHITE BLOOD CELL (test code = WBC) 11.6 K/mm3 4.5-12.5 N RED BLOOD CELL (test code = RBC) 4.38 mill/mm3 4.0-5.8 N HEMOGLOBIN (test code = HGB) 12.5 gram/dL 13.0-17.5 L HEMATOCRIT (test code = HCT) 40.1 % 42.0-52.0 L MEAN CELL VOLUME (test code = MCV) 91.6 fL 80-98 N MEAN CELL HGB (test code = MCH) 28.5 picogram 27.0-33.0 N MEAN CELL HGB CONCETRATION (test code = MCHC) 31.2 gram/dL 33.0-36. 0 L RED CELL DISTRIBUTION WIDTH (test code = RDW) 13.2 % 11.6-16. 2 N PLATELET COUNT (test code = PLT) 247 K/mm3 150-450 N MEAN PLATELET VOLUME (test code = MPV) 10.1 fL 6.7-11.0 N [id number] 17:11:00* Test Item Value Reference Range Interpretation Comments GLUBED (test code = GLUBED) 108 mg/dL 74-106 H Performed by certified ground transportation operator at [facility] [id number] 14:49:00 RUN DATE: 12/21/18 [place] - Lab PAGE 1 RUN TIME: 1449 Specimen Inqui ry RUN USER: INTERFACE PATIENT: BREE ASHTON ACCT #: V [id number] LOC: [id number] U #: [id number] AGE/SX: 43/M ROOM: [facility] RE12/16/18REG DR: Olegario Diaz MD : 75 BED: A DIS: 12/19/18 STATUS: DIS IN TLOC: SPEC #: [id number] RECD: 12/20/18 STATUS: SHAHRAM LUEAVNO #: [id number] HUY: 12/18/18 DR: Sav Coffey MD ENTERED: 12/20/18 SP TYPE: GALLBLADD OTHR DR: Levi Natarajan i, MD, Shao-Chun DOORDERED: LINDA COPIES TO: Levi Lakhani MD [address] [place], [place] [id number] Sav Coffey MD [address] [place] [address] [place] [address] [address] [place] [id number] MARKERS: ABNORMAL TISSUE, GALLBL ADDER PROCEDURES: LINDA (12/21/18-1158) TISSUES: GALLBLADDER, NOS CLINICAL HISTORY COLLECTION DATE: 12/18/18 CHOLECYSTITIS FIN AL DIAGNOSIS Gallbladder, cholecystectomy: PATCHY MILD CHRONIC ACALCUL OUS CHOLECYSTITIS NEGATIVE FOR MALIGNANCY RRB/sm A [id number] CONTINUED ON NEXT PAGE RUN DATE : 12/21/18 [place] - Lab PAGE 2 RUN TIME: 1449 Specimen Inquiry RUN USER: INTERFACE SPEC #: [id number] PATIENT: BREE ASHTON #V [id number] (Continued) MACROSCOPIC The specimen is r eceived in formalin, labeled with the patient's name, and identified as "gallb ladder". It consists of an intact gallbladder with a smooth dark green serosa l surface. The specimen measures 6.2 cm in length with a diameter up to 2.5 c m. A 1.6 cm segment of duct is clamped. The lumen is filled with dark green- black bile but no stones are present. The mucosal surface is dark green-black and smooth. The gallbladder wall measures up to 0.2 cm in thickness. No foc al lesions are identified. Bag Presser tissue is submitted in a single violeta sette. GROSS PERFORMED AT [facility] [address] [place] [id number])[phone] MICROSCOPIC All of the stains, including any controls performed, st ain appropriately. MICROSCOPIC PERFORMED AT [facility] [address] [place] [address] (V) PERFORMING SITE Diagnosis performed at: [facility], [address] [place] [address] Elan Irvin ON Dino Davis MD 12/21/18 1449 END OF REPORT [id number] 11:45:00* Test Item Value Reference Range Interpretation Comments GLUBED (test code = GLUBED) 238 mg/dL 74-106 H Performed by certified ground transportation operator at [facility] BASIC METABOLIC [id number] 08:28:00* Test Item Value Reference Range Interpretation Comments SODIUM (test code = NA) 137 mmol/L 136-145 N POTASSIUM (test code = K) 3.5 mmol/L 3.5-5.1 N CHLORIDE (test code = CL) 101.0 mmol/L 98-107 N CARBON DIOXIDE (test code = CO2) 26.0 mmol/L 21-32 N ANION GAP (test code = GAP) 13.5 10-20 N GLUCOSE (test code = GLU) 300 mg/dL 74-106 H BLOOD UREA NITROGEN (test code = BUN) 12 mg/dL 7-18 N GLOMERULAR FILTRATION RATE (test code = GFR) > 60 mL/min >=60 Estimated GFR by using Modified MDRD formula.Chronic kidney disease is defined as either kidney damageor GFR <60 mL/min/1.73 m2 for >3 months. CREATININE (test code = CREAT) 1.00 mg/dL 0.7-1.3 N BUN/CREATININE RATIO (test code = BUN/CREA) 12.0 10-20 N CALCIUM (test code = CA) 8.2 mg/dL 8.5-10.1 L [id number] 08:28:00* Test Item Value Reference Range Interpretation Comments MAGNESIUM (test code = MAG) 1.5 mg/dL 1.8-2.4 L BASIC METABOLIC [id number] 08:21:00* Test Item Value Reference Range Interpretation Comments SODIUM (test code = NA) 137 mmol/L 136-145 N POTASSIUM (test code = K) 3.5 mmol/L 3.5-5.1 N CHLORIDE (test code = CL) 101.0 mmol/L 98-107 N CARBON DIOXIDE (test code = CO2) mmol/L 21-32 ANION GAP (test code = GAP) 10-20 GLUCOSE (test code = GLU) mg/dL 74-106 BLOOD UREA NITROGEN (test code = BUN) mg/dL 7-18 GLOMERULAR FILTRATION RATE (test code = GFR) mL/min >=60 CREATININE (test code = CREAT) mg/dL 0.7-1.3 BUN/CREATININE RATIO (test code = BUN/CREA) 10-20 CALCIUM (test code = CA) mg/dL 8.5-10.1 [id number] 08:21:00* Test Item Value Reference Range Interpretation Comments MAGNESIUM (test code = MAG) mg/dL 1.8-2.4 CBC W/AUTO [id number] 07:56:00* Test Item Value Reference Range Interpretation Comments WHITE BLOOD CELL (test code = WBC) 13.1 K/mm3 4.5-12.5 H RED BLOOD CELL (test code = RBC) 3.20 mill/mm3 4.0-5.8 L HEMOGLOBIN (test code = HGB) 9.4 gram/dL 13.0-17.5 L HEMATOCRIT (test code = HCT) 28.4 % 42.0-52.0 L MEAN CELL VOLUME (test code = MCV) 88.8 fL 80-98 N MEAN CELL HGB (test code = MCH) 29.4 picogram 27.0-33.0 N MEAN CELL HGB CONCETRATION (test code = MCHC) 33.1 gram/dL 33.0-36. 0 N RED CELL DISTRIBUTION WIDTH (test code = RDW) 13.4 % 11.6-16. 2 N RED CELL DISTRIBUTION WIDTH SD (test code = RDW-SD) 44.1 fL 37 .0-51.0 N PLATELET COUNT (test code = PLT) 212 K/mm3 150-450 N MEAN PLATELET VOLUME (test code = MPV) 10.4 fL 6.7-11.0 N NEUTROPHIL % (test code = NT%) 77.9 % 39.0-69.0 H IMMATURE GRANULOCYTE % (test code = IG%) 0.4 % 0.0-5.0 N LYMPHOCYTE % (test code = LY%) 9.8 % 25.0-55.0 L MONOCYTE % (test code = MO%) 11.1 % 0.0-10.0 H EOSINOPHIL % (test code = EO%) 0.5 % 0.0-5.0 N BASOPHIL % (test code = BA%) 0.3 % 0.0-1.0 N NUCLEATED RBC % (test code = NRBC%) 0.0 % 0-0 N NEUTROPHIL # (test code = NT#) 10.20 K/mm3 1.8-7.7 H IMMATURE GRANULOCYTE # (test code = IG#) 0.05 x10 3/uL 0-0.03 H LYMPHOCYTE # (test code = LY#) 1.29 K/mm3 1.0-5.0 N MONOCYTE # (test code = MO#) 1.46 K/mm3 0-0.8 H EOSINOPHIL # (test code = EO#) 0.07 K/mm3 0.0-0.5 N BASOPHIL # (test code = BA#) 0.04 K/mm3 0.0-0.2 N NUCLEATED RBC # (test code = NRBC#) 0.00 K/mm3 0.0-0.1 N MANUAL DIFF REQUIRED (test code = MDIFF) NO [id number] 07:38:00* Test Item Value Reference Range Interpretation Comments GLUBED (test code = GLUBED) 277 mg/dL 74-106 H Performed by certified ground transportation operator at [facility] [id number] 20:34:00* Test Item Value Reference Range Interpretation Comments GLUBED (test code = GLUBED) 165 mg/dL 74-106 H Performed by certified ground transportation operator at [facility] [id number] 19:18:00* Test Item Value Reference Range Interpretation Comments GLUBED (test code = GLUBED) 203 mg/dL 74-106 H Performed by certified ground transportation operator at [facility] BASIC METABOLIC [id number] 11:47:00* Test Item Value Reference Range Interpretation Comments SODIUM (test code = NA) 136 mmol/L 136-145 N POTASSIUM (test code = K) 3.6 mmol/L 3.5-5.1 N CHLORIDE (test code = CL) 99.0 mmol/L 98-107 N CARBON DIOXIDE (test code = CO2) 26.0 mmol/L 21-32 N ANION GAP (test code = GAP) 14.6 10-20 N GLUCOSE (test code = GLU) 346 mg/dL 74-106 H BLOOD UREA NITROGEN (test code = BUN) 10 mg/dL 7-18 N GLOMERULAR FILTRATION RATE (test code = GFR) > 60 mL/min >=60 Estimated GFR by using Modified MDRD formula.Chronic kidney disease is defined as either kidney damageor GFR <60 mL/min/1.73 m2 for >3 months. CREATININE (test code = CREAT) 1.20 mg/dL 0.7-1.3 N BUN/CREATININE RATIO (test code = BUN/CREA) 8.5 10-20 L CALCIUM (test code = CA) 8.2 mg/dL 8.5-10.1 L PT IN SURGERY PAIGE [id number] V.LAB.KP2 12/18/18 [id number] 11:42:00* Test Item Value Reference Range Interpretation Comments GLUBED (test code = GLUBED) 360 mg/dL 74-106 H Performed by certified ground transportation operator at [facility] BASIC METABOLIC [id number] 11:41:00* Test Item Value Reference Range Interpretation Comments SODIUM (test code = NA) 136 mmol/L 136-145 N POTASSIUM (test code = K) 3.6 mmol/L 3.5-5.1 N CHLORIDE (test code = CL) 99.0 mmol/L 98-107 N CARBON DIOXIDE (test code = CO2) mmol/L 21-32 ANION GAP (test code = GAP) 10-20 GLUCOSE (test code = GLU) mg/dL 74-106 BLOOD UREA NITROGEN (test code = BUN) mg/dL 7-18 GLOMERULAR FILTRATION RATE (test code = GFR) mL/min >=60 CREATININE (test code = CREAT) mg/dL 0.7-1.3 BUN/CREATININE RATIO (test code = BUN/CREA) 10-20 CALCIUM (test code = CA) mg/dL 8.5-10.1 PT IN SURGERY PAIGE [id number] V.LAB.KP2 12/18/18 0926CBC W/AUTO [id number] 11:11:00* Test Item Value Reference Range Interpretation Comments WHITE BLOOD CELL (test code = WBC) 8.9 K/mm3 4.5-12.5 N RED BLOOD CELL (test code = RBC) 3.68 mill/mm3 4.0-5.8 L HEMOGLOBIN (test code = HGB) 10.8 gram/dL 13.0-17.5 L HEMATOCRIT (test code = HCT) 32.4 % 42.0-52.0 L MEAN CELL VOLUME (test code = MCV) 88.0 fL 80-98 N MEAN CELL HGB (test code = MCH) 29.3 picogram 27.0-33.0 N MEAN CELL HGB CONCETRATION (test code = MCHC) 33.3 gram/dL 33.0-36. 0 N RED CELL DISTRIBUTION WIDTH (test code = RDW) 13.5 % 11.6-16. 2 N RED CELL DISTRIBUTION WIDTH SD (test code = RDW-SD) 43.5 fL 37 .0-51.0 N PLATELET COUNT (test code = PLT) 236 K/mm3 150-450 N MEAN PLATELET VOLUME (test code = MPV) 10.5 fL 6.7-11.0 N NEUTROPHIL % (test code = NT%) 84.9 % 39.0-69.0 H IMMATURE GRANULOCYTE % (test code = IG%) 0.4 % 0.0-5.0 N LYMPHOCYTE % (test code = LY%) 8.3 % 25.0-55.0 L MONOCYTE % (test code = MO%) 4.7 % 0.0-10.0 N EOSINOPHIL % (test code = EO%) 1.1 % 0.0-5.0 N BASOPHIL % (test code = BA%) 0.6 % 0.0-1.0 N NUCLEATED RBC % (test code = NRBC%) 0.0 % 0-0 N NEUTROPHIL # (test code = NT#) 7.56 K/mm3 1.8-7.7 N IMMATURE GRANULOCYTE # (test code = IG#) 0.04 x10 3/uL 0-0.03 H LYMPHOCYTE # (test code = LY#) 0.74 K/mm3 1.0-5.0 L MONOCYTE # (test code = MO#) 0.42 K/mm3 0-0.8 N EOSINOPHIL # (test code = EO#) 0.10 K/mm3 0.0-0.5 N BASOPHIL # (test code = BA#) 0.05 K/mm3 0.0-0.2 N NUCLEATED RBC # (test code = NRBC#) 0.00 K/mm3 0.0-0.1 N MANUAL DIFF REQUIRED (test code = MDIFF) NO PT IN SURGERY RN [id number] V.LAB.KP2 12/18/18 [id number] 03:55:00* Test Item Value Reference Range Interpretation Comments GLUBED (test code = GLUBED) 269 mg/dL 74-106 H Performed by certified ground transportation operator at [facility] [id number] 23:58:00* Test Item Value Reference Range Interpretation Comments GLUBED (test code = GLUBED) 233 mg/dL 74-106 H Performed by certified ground transportation operator at [facility] [id number] 09:16:00* Test Item Value Reference Range Interpretation Comments GLUBED (test code = GLUBED) 179 mg/dL 74-106 H Performed by certified ground transportation operator at [facility] BASIC METABOLIC [id number] 06:40:00* Test Item Value Reference Range Interpretation Comments SODIUM (test code = NA) 141 mmol/L 136-145 N POTASSIUM (test code = K) 2.8 mmol/L 3.5-5.1 LL Re sults called to [id number] by V.LAB.WJC 12/17/18 0639Critical results verified and read back by Nurse? Y CHLORIDE (test code = CL) 103.0 mmol/L 98-107 N CARBON DIOXIDE (test code = CO2) 27.0 mmol/L 21-32 N ANION GAP (test code = GAP) 13.8 10-20 N GLUCOSE (test code = GLU) 156 mg/dL 74-106 H BLOOD UREA NITROGEN (test code = BUN) 9 mg/dL 7-18 N GLOMERULAR FILTRATION RATE (test code = GFR) > 60 mL/min >=60 Estimated GFR by using Modified MDRD formula.Chronic kidney disease is defined as either kidney damageor GFR <60 mL/min/1.73 m2 for >3 months. CREATININE (test code = CREAT) 1.00 mg/dL 0.7-1.3 N BUN/CREATININE RATIO (test code = BUN/CREA) 9.3 10-20 L CALCIUM (test code = CA) 8.3 mg/dL 8.5-10.1 L [id number] 06:40:00* Test Item Value Reference Range Interpretation Comments MAGNESIUM (test code = MAG) 1.6 mg/dL 1.8-2.4 L B-TYPE NATRIURETIC [id number] 06:34:00* Test Item Value Reference Range Interpretation Comments B-TYPE NATRIURETIC PEPTIDE (test code = BNP) 128.51 pgram/mL 0-100 H CBC W/AUTO [id number] 05:33:00* Test Item Value Reference Range Interpretation Comments WHITE BLOOD CELL (test code = WBC) 7.5 K/mm3 4.5-12.5 N RED BLOOD CELL (test code = RBC) 3.35 mill/mm3 4.0-5.8 L HEMOGLOBIN (test code = HGB) 9.7 gram/dL 13.0-17.5 L HEMATOCRIT (test code = HCT) 29.7 % 42.0-52.0 L MEAN CELL VOLUME (test code = MCV) 88.7 fL 80-98 N MEAN CELL HGB (test code = MCH) 29.0 picogram 27.0-33.0 N MEAN CELL HGB CONCETRATION (test code = MCHC) 32.7 gram/dL 33.0-36. 0 L RED CELL DISTRIBUTION WIDTH (test code = RDW) 13.4 % 11.6-16. 2 N RED CELL DISTRIBUTION WIDTH SD (test code = RDW-SD) 43.6 fL 37 .0-51.0 N PLATELET COUNT (test code = PLT) 213 K/mm3 150-450 N MEAN PLATELET VOLUME (test code = MPV) 10.4 fL 6.7-11.0 N NEUTROPHIL % (test code = NT%) 53.8 % 39.0-69.0 N IMMATURE GRANULOCYTE % (test code = IG%) 0.1 % 0.0-5.0 N LYMPHOCYTE % (test code = LY%) 30.1 % 25.0-55.0 N MONOCYTE % (test code = MO%) 13.6 % 0.0-10.0 H EOSINOPHIL % (test code = EO%) 1.9 % 0.0-5.0 N BASOPHIL % (test code = BA%) 0.5 % 0.0-1.0 N NUCLEATED RBC % (test code = NRBC%) 0.0 % 0-0 N NEUTROPHIL # (test code = NT#) 4.05 K/mm3 1.8-7.7 N IMMATURE GRANULOCYTE # (test code = IG#) 0.01 x10 3/uL 0-0.03 N LYMPHOCYTE # (test code = LY#) 2.26 K/mm3 1.0-5.0 N MONOCYTE # (test code = MO#) 1.02 K/mm3 0-0.8 H EOSINOPHIL # (test code = EO#) 0.14 K/mm3 0.0-0.5 N BASOPHIL # (test code = BA#) 0.04 K/mm3 0.0-0.2 N NUCLEATED RBC # (test code = NRBC#) 0.00 K/mm3 0.0-0.1 N [id number] 02:55:00* Test Item Value Reference Range Interpretation Comments GLUBED (test code = GLUBED) 102 mg/dL 74-106 N Performed by certified ground transportation operator at [facility] [id number] 21:18:00* Test Item Value Reference Range Interpretation Comments GLUBED (test code = GLUBED) 224 mg/dL 74-106 H Performed by certified ground transportation operator at [facility] [id number] 16:43:00* Test Item Value Reference Range Interpretation Comments GLUBED (test code = GLUBED) 158 mg/dL 74-106 H Performed by certified ground transportation operator at [facility] DRUGS OF ABUSE SCREEN [id number] 14:45:00* Test Item Value Reference Range Interpretation Comments UA PH DIPSTICK (test code = JOHN) 6.0 5.0-8.0 URN COCAINE (test code = COCAURN) NEGATIVE <300 ng/mL URN CANNABINOIDS (test code = CANNABURN) POSITIVE <50 ng/mL A This test provides only a preliminary test [...] (e.g., employment testing, legaltesting). URN AMPHETAMINE (test code = AMPHETURN) NEGATIVE <1000 ng/mL URN BARBITURATE (test code = BARBITURN) NEGATIVE <200 ng/mL URN BENZODIAZEPINE (test code = BENZOURN) NEGATIVE <200 ng/mL URN OPIATES (test code = OPIATURN) POSITIVE <300 ng/mL A This test provides only a preliminary test [...] employment testing, legaltesting). URN PHENCYCLIDINE (PCP) (test code = PHENCURN) NEGATIVE <25 ng/ mL URN METHADONE (test code = METHAURN) NEGATIVE <300 ng/mL DRUGS OF ABUSE SCREEN [id number] 14:24:00* Test Item Value Reference Range Interpretation Comments UA PH DIPSTICK (test code = JOHN) 6.0 5.0-8.0 URN COCAINE (test code = COCAURN) <300 ng/mL URN CANNABINOIDS (test code = CANNABURN) <50 ng/mL URN AMPHETAMINE (test code = AMPHETURN) <1000 ng/mL URN BARBITURATE (test code = BARBITURN) <200 ng/mL URN BENZODIAZEPINE (test code = BENZOURN) <200 ng/mL URN OPIATES (test code = OPIATURN) <300 ng/mL URN PHENCYCLIDINE (PCP) (test code = PHENCURN) <25 ng/ mL URN METHADONE (test code = METHAURN) <300 ng/mL - HEPA IMAG INCL GB W [id number] 14:14:00 FAX: Leia Kendrick MSN [place]: B St: ADM FAX: Bobby Self MD FAX: Riley Zavala DO [phone] Name: BREE ASHTON [facility] : 1975 Age/S: 43/M [address] [facility] Unit #: [id number] Loc: V.3070 [place] [address] Phys: Leia Kendrick MSN Acct: [id number] Dis Date: Status: ADM IN ONE #: [phone] Exam Date: 12/16/2018 1412 FAX #: [phone] Reason: recurrent n/v EXAMS: CPT CODE: [id number] HE PA IMAG INCL GB W PHA 91740 HISTORY: recur rent n/v EXAM: NUCLEAR MEDICINE HEPATOBILIARY SCAN. TECHNIQUE: After IV injection of 5.5 mCi Tc 99m Choletec, sequential kalen bess images were obtained over the upper abdomen out to 60 minutes. FINDINGS: Homogeneous distribution of radiopharmaceutical in the liver. There is decreased tracer uptake into the gallbladder. Following administr ation of cholecystokinin, there is decreased ejection of tracer by the gal lbladder. IMPRESSION: No obstruction of the common bile duct. Findings suggest gallbladder dysfunction. Electronica lly Signed by Mulugeta Espinoza MD on 12/16/2018 at 1414 Repor arben and signed by: Mulugeta Espinoza MD CC: Leia Kendrick MSN; Bobby Self MD; Riley Beckman DO Technologist: ESAU ASHRAF Trnscrd Date/Time/By: 12/16/2018 (7744) : By: [email or web address] Orig Print D/T: S: 12/16/2018 (0335) PAGE 1 Signed Report [id number] 11:12:00* Test Item Value Reference Range Interpretation Comments GLUBED (test code = GLUBED) 133 mg/dL 74-106 H Performed by certified ground transportation operator at [facility] - US ABDOMEN [id number] 10:25:00 Name: BREE ASHTON [facility] : 1975 Age/S: 43 / M [address] [place] Unit #: [id number] Loc: [place] [address] Phys: Leia Kendrick MSN Acct: [id number] Dis Date: Status: ADM IN PHONE #: [phone] Exam Date: 12/16/2018 0940 FAX #: [phone] Reason: n/v EXAMS: CPT CODE: [id number] US ABDOMEN COMPLETE 11495 REASON FOR EXAM: n/v EXAM ORDER DATE: 12/16/2018 8:46 AM Attending M.D.: Leia Kendrick PROCEDURE: - US ABDOMEN COMPLETE Technique: Grayscale and color Doppler images of the abdomen. Comparison study: CT of the abdomen and pelvis December 10, 2017 FINDINGS: Aorta and IVC: Patent and grossly normal in caliber. Liver: Size: 14.7 cm craniocaudally Parenchyma and contour: Smooth contour. Normal echogenicity. Cysts and/or masses: None. Intrahepatic bile ducts: No intrahepatic biliary ductal dilation Common bile duct: 5.5 mm in diameter. No echogenic filling defects in visualized duct. Gallbladder: Stones/sludge: No intraluminal stones or sludge. Wall: 1.9 mm in thickness. No discontinuity. No polyps. No pericholecystic fluid. No hyperemia. Sonographic Champagne's sign: Negative Portal vein: Portal vein caliber is within normal limits. Portal vein is patent with hepatopetal flow. Pancreas: Incompletely visualized. However the visualized portions are grossly within normal limits. Right kidney: parenchyma echogenicity: Normal echogenicity size: 11.8 x 6.3 x 6.1 cm stones: none cysts/ masses: none hydronephrosis: none PAGE 1 Signed Report (CONTINUED) Name: BREE ASHTON [facility] : 1975 Age/S: 43 / M [address] [place] Unit #: [id number] Loc: [place] [address] Phys: Leia Kendrick MSN Acct: [id number] Dis Date: Status: ADM IN PHONE #: [phone] Exam Date: 12/16 0940 FAX #: [phone] Reason: n/v EXAMS: CPT CODE: [id number] US ABDOMEN COMPLETE 76 700 <Continued> Left kidney: parenchyma echogenicity: Normal echogenicity size: 11.8 x 5.6 x 5.8 cm stones: none cysts/masses: none hydronephrosis: none Spleen: size: 7.9 x 2.6 x 2.8 cm cysts/masses: Parenchyma is sonographically unremarkable. Ascites/pleural effusions: None IMPRESSION: Sonographically unremarkable abdomen. at 1025 Reported and signed by: Mulugeta Espinoza MD CC: Leia Kendrick; Bobby Self MD; Riley Beckman DO Technologist: NOEMY OLVERA RT(R),RDMS Trnalb Date/Time: 12/16/2018 (0476) t.SDR.RR31 Orig Print D/T: S: 12/16/2018 (4493) Probe: PAGE 2 Signed Report [id number] 07:04:00* Test Item Value Reference Range Interpretation Comments GLUBED (test code = GLUBED) 177 mg/dL 74-106 H Performed by certified ground transportation operator at [facility] URINALYSIS [id number] 00:25:00* Test Item Value Reference Range Interpretation Comments UA COLOR (test code = COLU) YELLOW YELLOW UA APPEARANCE (test code = APPU) CLEAR CLEAR UA GLUCOSE DIPSTICK (test code = DGLUU) 300 (2+) mg/dL NEGATIVE A UA BILIRUBIN DIPSTICK (test code = BILU) NEGATIVE mg/dL NEGATIVE UA KETONE DIPSTICK (test code = KETU) 20 (1+) mg/dL NEGATIVE A UA SPECIFIC GRAVITY (test code = SGU) 1.025 1.001-1.035 UA BLOOD DIPSTICK (test code = JOANNE) Negative mg/dL NEGATIVE UA PH DIPSTICK (test code = JOHN) 6.0 5.0-8.0 UA PROTEIN DIPSTICK (test code = PROU) 30 (1+) mg/dL NEGATIVE A UA UROBILINIOGEN DIPSTICK (test code = URO) 2.0 (1+) mg/dL NEGATIVE A UA NITRITE DIPSTICK (test code = JOHNSON) NEGATIVE NEGATIVE UA LEUKOCYTE ESTERASE W REFLEX (test code = LEUUR) 25 Jeannine/uL (Trace) Jeannine/uL NEGATIVE A UA WBC (test code = WBCU) 6-10 per HPF 0-5 A UA RBC (test code = RBCU) 3-5 #/HPF 0-5 UA EPITHELIAL CELLS (test code = EPIU) FEW per HPF FEW UA BACTERIA (test code = BACU) NONE SEEN #/HPF NONE UA HYALINE CAST (test code = HYALU) 3-5 #/LPF 0-5 UA MUCUS (test code = MUCU) MODERATE #/LPF FEW A Urine Source? Clean CatchBASIC METABOLIC [id number] 00:22:00* Test Item Value Reference Range Interpretation Comments SODIUM (test code = NA) 140 mmol/L 136-145 N POTASSIUM (test code = K) 3.2 mmol/L 3.5-5.1 L CHLORIDE (test code = CL) 102.0 mmol/L 98-107 N CARBON DIOXIDE (test code = CO2) 30.0 mmol/L 21-32 N ANION GAP (test code = GAP) 11.2 10-20 N GLUCOSE (test code = GLU) 198 mg/dL 74-106 H BLOOD UREA NITROGEN (test code = BUN) 15 mg/dL 7-18 N GLOMERULAR FILTRATION RATE (test code = GFR) > 60 mL/min >=60 Estimated GFR by using Modified MDRD formula.Chronic kidney disease is defined as either kidney damageor GFR <60 mL/min/1.73 m2 for >3 months. CREATININE (test code = CREAT) 1.30 mg/dL 0.7-1.3 N BUN/CREATININE RATIO (test code = BUN/CREA) 11.6 10-20 N CALCIUM (test code = CA) 8.8 mg/dL 8.5-10.1 N HEPATIC FUNCTION [id number] 00:22:00* Test Item Value Reference Range Interpretation Comments TOTAL PROTEIN (test code = PROT) 7.7 gram/dL 6.4-8.2 N ALBUMIN (test code = ALB) 3.8 g/dL 3.4-5.0 N GLOBULIN (test code = GLOB) 3.9 gram/dL 2.7-4.2 N ALBUMIN/GLOBULIN RATIO (test code = A/G) 1.0 0.75-1.50 N BILIRUBIN TOTAL (test code = BILT) 0.60 mg/dL 0.0-1.0 N BILIRUBIN DIRECT (test code = BILD) 0.15 mg/dL 0.0-0.20 N SGOT/AST (test code = AST) 13 IUnit/L 15-37 L SGPT/ALT (test code = ALT) 17 IUnit/L 12-78 N ALKALINE PHOSPHATASE TOTAL (test code = ALKP) 85 IUnit/L 45-117 N Note change in reference range due to change in reagent. [id number] 00:22:00* Test Item Value Reference Range Interpretation Comments LIPASE (test code = LIP) < 10 U/L 73.0-393.0 L [id number] 00:22:00* Test Item Value Reference Range Interpretation Comments TROPONIN-I (test code = TROPI) <0.015 ng/mL 0-0.045 N BASIC METABOLIC [id number] 00:12:00* Test Item Value Reference Range Interpretation Comments SODIUM (test code = NA) 140 mmol/L 136-145 N POTASSIUM (test code = K) 3.2 mmol/L 3.5-5.1 L CHLORIDE (test code = CL) 102.0 mmol/L 98-107 N CARBON DIOXIDE (test code = CO2) mmol/L 21-32 ANION GAP (test code = GAP) 10-20 GLUCOSE (test code = GLU) mg/dL 74-106 BLOOD UREA NITROGEN (test code = BUN) mg/dL 7-18 GLOMERULAR FILTRATION RATE (test code = GFR) mL/min >=60 CREATININE (test code = CREAT) mg/dL 0.7-1.3 BUN/CREATININE RATIO (test code = BUN/CREA) 10-20 CALCIUM (test code = CA) mg/dL 8.5-10.1 HEPATIC FUNCTION [id number] 00:12:00* Test Item Value Reference Range Interpretation Comments TOTAL PROTEIN (test code = PROT) gram/dL 6.4-8.2 ALBUMIN (test code = ALB) g/dL 3.4-5.0 GLOBULIN (test code = GLOB) gram/dL 2.7-4.2 ALBUMIN/GLOBULIN RATIO (test code = A/G) 0.75-1.50 BILIRUBIN TOTAL (test code = BILT) mg/dL 0.0-1.0 BILIRUBIN DIRECT (test code = BILD) mg/dL 0.0-0.20 SGOT/AST (test code = AST) IUnit/L 15-37 SGPT/ALT (test code = ALT) IUnit/L 12-78 ALKALINE PHOSPHATASE TOTAL (test code = ALKP) IUnit/L 45-117 [id number] 00:12:00* Test Item Value Reference Range Interpretation Comments LIPASE (test code = LIP) U/L 73.0-393.0 [id number] 00:12:00* Test Item Value Reference Range Interpretation Comments TROPONIN-I (test code = TROPI) ng/mL 0-0.045 CBC W/O [id number] 00:06:00* Test Item Value Reference Range Interpretation Comments WHITE BLOOD CELL (test code = WBC) 8.4 K/mm3 4.5-12.5 N RED BLOOD CELL (test code = RBC) 3.64 mill/mm3 4.0-5.8 L HEMOGLOBIN (test code = HGB) 10.7 gram/dL 13.0-17.5 L HEMATOCRIT (test code = HCT) 32.8 % 42.0-52.0 L MEAN CELL VOLUME (test code = MCV) 90.1 fL 80-98 N MEAN CELL HGB (test code = MCH) 29.4 picogram 27.0-33.0 N MEAN CELL HGB CONCETRATION (test code = MCHC) 32.6 gram/dL 33.0-36. 0 L RED CELL DISTRIBUTION WIDTH (test code = RDW) 13.3 % 11.6-16. 2 N PLATELET COUNT (test code = PLT) 212 K/mm3 150-450 N MEAN PLATELET VOLUME (test code = MPV) 10.2 fL 6.7-11.0 N BASIC METABOLIC [id number] 08:09:00* Test Item Value Reference Range Interpretation Comments SODIUM (test code = NA) 138 mmol/L 136-145 N POTASSIUM (test code = K) 3.5 mmol/L 3.5-5.1 N CHLORIDE (test code = CL) 99.0 mmol/L 98-107 N CARBON DIOXIDE (test code = CO2) 28.0 mmol/L 21-32 N ANION GAP (test code = GAP) 14.5 10-20 N GLUCOSE (test code = GLU) 347 mg/dL 74-106 H BLOOD UREA NITROGEN (test code = BUN) 15 mg/dL 7-18 N GLOMERULAR FILTRATION RATE (test code = GFR) > 60 mL/min >=60 Estimated GFR by using Modified MDRD formula.Chronic kidney disease is defined as either kidney damageor GFR <60 mL/min/1.73 m2 for >3 months. CREATININE (test code = CREAT) 1.40 mg/dL 0.7-1.3 H BUN/CREATININE RATIO (test code = BUN/CREA) 10.5 10-20 N CALCIUM (test code = CA) 9.0 mg/dL 8.5-10.1 N HEPATIC FUNCTION [id number] 08:09:00* Test Item Value Reference Range Interpretation Comments TOTAL PROTEIN (test code = PROT) 8.2 gram/dL 6.4-8.2 N ALBUMIN (test code = ALB) 4.1 g/dL 3.4-5.0 N GLOBULIN (test code = GLOB) 4.1 gram/dL 2.7-4.2 N ALBUMIN/GLOBULIN RATIO (test code = A/G) 1.0 0.75-1.50 N BILIRUBIN TOTAL (test code = BILT) 0.60 mg/dL 0.0-1.0 N BILIRUBIN DIRECT (test code = BILD) 0.15 mg/dL 0.0-0.20 N SGOT/AST (test code = AST) 13 IUnit/L 15-37 L SGPT/ALT (test code = ALT) 21 IUnit/L 12-78 N ALKALINE PHOSPHATASE TOTAL (test code = ALKP) 95 IUnit/L 45-117 N Note change in reference range due to change in reagent. [id number] 08:09:00* Test Item Value Reference Range Interpretation Comments LIPASE (test code = LIP) < 10 U/L 73.0-393.0 L [id number] 08:09:00* Test Item Value Reference Range Interpretation Comments TROPONIN-I (test code = TROPI) <0.015 ng/mL 0-0.045 N BASIC METABOLIC [id number] 07:52:00* Test Item Value Reference Range Interpretation Comments SODIUM (test code = NA) 138 mmol/L 136-145 N POTASSIUM (test code = K) 3.5 mmol/L 3.5-5.1 N CHLORIDE (test code = CL) 99.0 mmol/L 98-107 N CARBON DIOXIDE (test code = CO2) mmol/L 21-32 ANION GAP (test code = GAP) 10-20 GLUCOSE (test code = GLU) mg/dL 74-106 BLOOD UREA NITROGEN (test code = BUN) mg/dL 7-18 GLOMERULAR FILTRATION RATE (test code = GFR) mL/min >=60 CREATININE (test code = CREAT) mg/dL 0.7-1.3 BUN/CREATININE RATIO (test code = BUN/CREA) 10-20 CALCIUM (test code = CA) mg/dL 8.5-10.1 HEPATIC FUNCTION [id number] 07:52:00* Test Item Value Reference Range Interpretation Comments TOTAL PROTEIN (test code = PROT) gram/dL 6.4-8.2 ALBUMIN (test code = ALB) g/dL 3.4-5.0 GLOBULIN (test code = GLOB) gram/dL 2.7-4.2 ALBUMIN/GLOBULIN RATIO (test code = A/G) 0.75-1.50 BILIRUBIN TOTAL (test code = BILT) mg/dL 0.0-1.0 BILIRUBIN DIRECT (test code = BILD) mg/dL 0.0-0.20 SGOT/AST (test code = AST) IUnit/L 15-37 SGPT/ALT (test code = ALT) IUnit/L 12-78 ALKALINE PHOSPHATASE TOTAL (test code = ALKP) IUnit/L 45-117 [id number] 07:52:00* Test Item Value Reference Range Interpretation Comments LIPASE (test code = LIP) U/L 73.0-393.0 [id number] 07:52:00* Test Item Value Reference Range Interpretation Comments TROPONIN-I (test code = TROPI) ng/mL 0-0.045 CBC W/O [id number] 07:40:00* Test Item Value Reference Range Interpretation Comments WHITE BLOOD CELL (test code = WBC) 10.1 K/mm3 4.5-12.5 N RED BLOOD CELL (test code = RBC) 3.73 mill/mm3 4.0-5.8 L HEMOGLOBIN (test code = HGB) 11.1 gram/dL 13.0-17.5 L HEMATOCRIT (test code = HCT) 34.3 % 42.0-52.0 L MEAN CELL VOLUME (test code = MCV) 92.0 fL 80-98 N MEAN CELL HGB (test code = MCH) 29.8 picogram 27.0-33.0 N MEAN CELL HGB CONCETRATION (test code = MCHC) 32.4 gram/dL 33.0-36. 0 L RED CELL DISTRIBUTION WIDTH (test code = RDW) 13.8 % 11.6-16. 2 N PLATELET COUNT (test code = PLT) 219 K/mm3 150-450 N MEAN PLATELET VOLUME (test code = MPV) 10.5 fL 6.7-11.0 N POCT-GLUCOSE [id number] 17:19:00* Test Item Value Reference Range Interpretation Comments POC-GLUCOSE METER (BEAKER) (test code = 1538) 266 mg/dL 70-110 H TESTED AT [address] [address] POCT-GLUCOSE [id number] 12:17:00* Test Item Value Reference Range Interpretation Comments POC-GLUCOSE METER (BEAKER) (test code = 1538) 240 mg/dL 70-110 H TESTED AT [address] [address] POCT-GLUCOSE [id number] 08:12:00* Test Item Value Reference Range Interpretation Comments POC-GLUCOSE METER (BEAKER) (test code = 1538) 184 mg/dL 70-110 H TESTED AT [address] [address] [id number] 06:18:00* Test Item Value Reference Range Interpretation Comments PHOSPHORUS (BEAKER) (test code = 604) 2.2 mg/dL 2.3-4.7 L [id number] 06:18:00* Test Item Value Reference Range Interpretation Comments MAGNESIUM (BEAKER) (test code = 627) 1.6 mg/dL 1.6-2.6 BASIC METABOLIC [id number] 06:18:00* Test Item Value Reference Range Interpretation Comments SODIUM (BEAKER) (test code = 381) 139 meq/L 136-145 POTASSIUM (BEAKER) (test code = 379) 3.2 meq/L 3.5-5.1 L CHLORIDE (BEAKER) (test code = 382) 105 meq/L 98-107 CO2 (BEAKER) (test code = 355) 28 meq/L 22-29 BLOOD UREA NITROGEN (BEAKER) (test code = 354) 11 mg/dL 7-21 CREATININE (BEAKER) (test code = 358) 1.12 mg/dL 0.57-1.25 GLUCOSE RANDOM (BEAKER) (test code = 652) 112 mg/dL 70-105 H CALCIUM (BEAKER) (test code = 697) 8.7 mg/dL 8.4-10.2 EGFR (BEAKER) (test code = 1092) 87 mL/min/1.73 sq m ESTIMATED GFR IS NOT ACCURATE CREATININE CLEARANCE IN PREDICTING GLOMERULAR FILTRATION RATE. ESTIMATED GFR IS NOT APPLICABLE FOR DIALYSIS PATIENTS. CBC W/PLT COUNT & AUTO [id number] 06:16:00* Test Item Value Reference Range Interpretation Comments WHITE BLOOD CELL COUNT (BEAKER) (test code = 775) 7.5 K/ L 3.5- 10.5 RED BLOOD CELL COUNT (BEAKER) (test code = 761) 3.38 M/ L 4.63-6 .08 L HEMOGLOBIN (BEAKER) (test code = 410) 9.8 GM/DL 13.7-17.5 L HEMATOCRIT (BEAKER) (test code = 411) 31.1 % 40.1-51.0 L MEAN CORPUSCULAR VOLUME (BEAKER) (test code = 753) 92.0 fL 79. 0-92.2 MEAN CORPUSCULAR HEMOGLOBIN (BEAKER) (test code = 751) 29.0 pg 25.7-32.2 MEAN CORPUSCULAR HEMOGLOBIN CONC (BEAKER) (test code = 752) 31.5 GM/DL 32.3-36.5 L RED CELL DISTRIBUTION WIDTH (BEAKER) (test code = 412) 14.1 % 11.6-14.4 PLATELET COUNT (BEAKER) (test code = 756) 208 K/CU MM 150-450 Discordant PLT results compared to previous results; clinical correlation required. MEAN PLATELET VOLUME (BEAKER) (test code = 754) 10.4 fL 9.4-12 .4 NUCLEATED RED BLOOD CELLS (BEAKER) (test code = 413) 0 /100 WBC 0 -0 NEUTROPHILS RELATIVE PERCENT (BEAKER) (test code = 429) 66 % LYMPHOCYTES RELATIVE PERCENT (BEAKER) (test code = 430) 20 % MONOCYTES RELATIVE PERCENT (BEAKER) (test code = 431) 12 % EOSINOPHILS RELATIVE PERCENT (BEAKER) (test code = 432) 1 % BASOPHILS RELATIVE PERCENT (BEAKER) (test code = 437) 1 % NEUTROPHILS ABSOLUTE COUNT (BEAKER) (test code = 670) 4.92 K/ L 1.78-5.38 LYMPHOCYTES ABSOLUTE COUNT (BEAKER) (test code = 414) 1.46 K/ L 1.32-3.57 MONOCYTES ABSOLUTE COUNT (BEAKER) (test code = 415) 0.92 K/ L 0. 30-0.82 H EOSINOPHILS ABSOLUTE COUNT (BEAKER) (test code = 416) 0.10 K/ L 0.04-0.54 BASOPHILS ABSOLUTE COUNT (BEAKER) (test code = 417) 0.07 K/ L 0. 01-0.08 IMMATURE GRANULOCYTES-RELATIVE PERCENT (BEAKER) (test code = 2801) 0 % 0-1 POCT-GLUCOSE [id number] 21:15:00* Test Item Value Reference Range Interpretation Comments POC-GLUCOSE METER (BEAKER) (test code = 1538) 307 mg/dL 70-110 H Notified RN or MD Patient refused repeat test/TESTED AT [facility] [address] [place] [address] HEMOGLOBIN [id number] 19:48:00* Test Item Value Reference Range Interpretation Comments HEMOGLOBIN A1C (BEAKER) (test code = 368) 8.4 % 4.3-6.1 H LIPID [id number] 16:17:00* Test Item Value Reference Range Interpretation Comments TRIGLYCERIDES (BEAKER) (test code = 540) 101 mg/dL CHOLESTEROL (BEAKER) (test code = 631) 151 mg/dL HDL CHOLESTEROL (BEAKER) (test code = 976) 38 mg/dL LDL CHOLESTEROL CALCULATED (BEAKER) (test code = 633) 93 mg/dL Triglyceride Reference Range: Low Risk <150 Borderline 150-199 High Risk 200-499 Very High Risk >=500Cholesterol Reference Range: Low Risk <200 Borderline 200-239 High Risk >240HDL Cholesterol Reference Range: Low Risk >=60 High Risk <40LDL Cholesterol Reference Range: Optimal <100 Near Optimal 100-129 Borderline 130-159 High 160-189 Very High >=190 BASIC METABOLIC [id number] 16:17:00* Test Item Value Reference Range Interpretation Comments SODIUM (BEAKER) (test code = 381) 140 meq/L 136-145 POTASSIUM (BEAKER) (test code = 379) 3.9 meq/L 3.5-5.1 CHLORIDE (BEAKER) (test code = 382) 107 meq/L 98-107 CO2 (BEAKER) (test code = 355) 24 meq/L 22-29 BLOOD UREA NITROGEN (BEAKER) (test code = 354) 16 mg/dL 7-21 CREATININE (BEAKER) (test code = 358) 1.26 mg/dL 0.57-1.25 H GLUCOSE RANDOM (BEAKER) (test code = 652) 270 mg/dL 70-105 H CALCIUM (BEAKER) (test code = 697) 8.9 mg/dL 8.4-10.2 EGFR (BEAKER) (test code = 1092) 76 mL/min/1.73 sq m ESTIMATED GFR IS NOT ACCURATE CREATININE CLEARANCE IN PREDICTING GLOMERULAR FILTRATION RATE. ESTIMATED GFR IS NOT APPLICABLE FOR DIALYSIS PATIENTS. HEPATIC FUNCTION [id number] 16:17:00* Test Item Value Reference Range Interpretation Comments TOTAL PROTEIN (BEAKER) (test code = 770) 6.9 gm/dL 6.0-8.3 ALBUMIN (BEAKER) (test code = 1145) 3.9 g/dL 3.5-5.0 BILIRUBIN TOTAL (BEAKER) (test code = 377) 0.5 mg/dL 0.2-1.2 BILIRUBIN DIRECT (BEAKER) (test code = 706) 0.2 mg/dL 0.1-0.5 ALKALINE PHOSPHATASE (BEAKER) (test code = 346) 80 U/L 40-150 AST (SGOT) (BEAKER) (test code = 353) 18 U/L 5-34 ALT (SGPT) (BEAKER) (test code = 347) 15 U/L 6-55 CBC W/PLT COUNT & AUTO [id number] 16:07:00* Test Item Value Reference Range Interpretation Comments WHITE BLOOD CELL COUNT (BEAKER) (test code = 775) 10.1 K/ L 3.5- 10.5 RED BLOOD CELL COUNT (BEAKER) (test code = 761) 3.34 M/ L 4.63-6 .08 L HEMOGLOBIN (BEAKER) (test code = 410) 9.9 GM/DL 13.7-17.5 L HEMATOCRIT (BEAKER) (test code = 411) 31.4 % 40.1-51.0 L MEAN CORPUSCULAR VOLUME (BEAKER) (test code = 753) 94.0 fL 79. 0-92.2 H MEAN CORPUSCULAR HEMOGLOBIN (BEAKER) (test code = 751) 29.6 pg 25.7-32.2 MEAN CORPUSCULAR HEMOGLOBIN CONC (BEAKER) (test code = 752) 31.5 GM/DL 32.3-36.5 L RED CELL DISTRIBUTION WIDTH (BEAKER) (test code = 412) 14.4 % 11.6-14.4 PLATELET COUNT (BEAKER) (test code = 756) 130 K/CU MM 150-450 L MEAN PLATELET VOLUME (BEAKER) (test code = 754) 11.0 fL 9.4-12 .4 NUCLEATED RED BLOOD CELLS (BEAKER) (test code = 413) 0 /100 WBC 0 -0 NEUTROPHILS RELATIVE PERCENT (BEAKER) (test code = 429) 77 % LYMPHOCYTES RELATIVE PERCENT (BEAKER) (test code = 430) 14 % MONOCYTES RELATIVE PERCENT (BEAKER) (test code = 431) 8 % EOSINOPHILS RELATIVE PERCENT (BEAKER) (test code = 432) 0 % BASOPHILS RELATIVE PERCENT (BEAKER) (test code = 437) 1 % NEUTROPHILS ABSOLUTE COUNT (BEAKER) (test code = 670) 7.75 K/ L 1.78-5.38 H LYMPHOCYTES ABSOLUTE COUNT (BEAKER) (test code = 414) 1.40 K/ L 1.32-3.57 MONOCYTES ABSOLUTE COUNT (BEAKER) (test code = 415) 0.85 K/ L 0. 30-0.82 H EOSINOPHILS ABSOLUTE COUNT (BEAKER) (test code = 416) 0.01 K/ L 0.04-0.54 L BASOPHILS ABSOLUTE COUNT (BEAKER) (test code = 417) 0.07 K/ L 0. 01-0.08 IMMATURE GRANULOCYTES-RELATIVE PERCENT (BEAKER) (test code = 2801) 0 % 0-1 POCT-GLUCOSE [id number] 16:01:00* Test Item Value Reference Range Interpretation Comments POC-GLUCOSE METER (BEAKER) (test code = 1538) 265 mg/dL 70-110 H TESTED AT [facility] [address] [facility] [address] POCT-GLUCOSE [id number] 12:34:00* Test Item Value Reference Range Interpretation Comments POC-GLUCOSE METER (BEAKER) (test code = 1538) 271 mg/dL 70-110 H TESTED AT [facility] [address] [facility] [address] [id number] 18:51:00* Test Item Value Reference Range Interpretation Comments Lipase (test code = 3040-3) < 4 8-78 [facility] [id number] 20:52:00* Test Item Value Reference Range Interpretation Comments Blood Culture (test code = 03255244) NO GROWTH AFTER 5 DAYS, FINAL REPORT [facility] [id number] 10:48:00* Test Item Value Reference Range Interpretation Comments Urine WBC (test code = 5821-4) 6-10 0-5 [facility] [id number] 10:48:00* Test Item Value Reference Range Interpretation Comments Urine RBC (test code = 16296-1) 0-5 0-5 [facility] [id number] 10:48:00* Test Item Value Reference Range Interpretation Comments Urine Bacteria (test code = 90384-2) MODERATE NONE [facility] Epithelial [id number] 10:48:00 * Test Item Value Reference Range Interpretation Comments Urine Epithelial Cells (test code = 02053-9) FEW NONE [facility] [id number] 10:24:00* Test Item Value Reference Range Interpretation Comments Urine Color (test code = 5778-6) YELLOW YELLOW [facility] [id number] 10:24:00* Test Item Value Reference Range Interpretation Comments Urine Clarity (test code = 23977-3) CLEAR CLEAR [facility] Specific [id number] 10:24:00 * Test Item Value Reference Range Interpretation Comments Urine Specific Chloe (test code = 5811-5) 1.025 1.010-1.02 5 [facility] [id number] 10:24:00* Test Item Value Reference Range Interpretation Comments Urine pH (test code = 08320-7) 6 5-7 [facility] Leukocyte [id number] 10:24:00* Test Item Value Reference Range Interpretation Comments Urine Leukocyte Esterase (test code = 53549-3) NEGATIVE NEGATIV E [facility] [id number] 10:24:00* Test Item Value Reference Range Interpretation Comments Urine Nitrite (test code = 53012-3) NEGATIVE [facility]GATIVE [facility] [id number] 10:24:00* Test Item Value Reference Range Interpretation Comments Urine Protein (test code = 14217-5) NEGATIVE NEGATIVE [facility] Glucose (UA)2018-11-24 10:24:00* Test Item Value Reference Range Interpretation Comments Urine Glucose (UA) (test code = 26880-0) NEGATIVE [facility]GATIVE [facility] [id number] 10:24:00* Test Item Value Reference Range Interpretation Comments Urine Ketones (test code = 74574-3) 1+ NEGATIVE [facility] [id number] 10:24:00* Test Item Value Reference Range Interpretation Comments Urine Urobilinogen (test code = 73218-1) 0.2 0.2-1 [facility] [id number] 10:24:00* Test Item Value Reference Range Interpretation Comments Urine Bilirubin (test code = 1977-8) NEGATIVE [facility]GATIVE [facility] [id number] 10:24:00* Test Item Value Reference Range Interpretation Comments Urine Blood (test code = 52146-0) NEGATIVE NEGATIVE [facility] - [id number] 18:41:00 [facility] [address] [place] [address] Patient Name: BREE ASHTON MR #: [id number] : 1975 Age/Sex: 42/M Req #: [id number] Adm Physician: ISACC JAVED MD Ordered by: NEIL PEREZ MD Report #: [id number] Location: [facility] Room/Bed: [place] [address] Procedure: [id number] HOPD/CXR 1 VEW - HOPD Exam Date: 11/22/18 Exam Time: 1755 REPORT STATUS: Signed EXA MINATION: CXR 1 VIEW - HOPD COMPARISON: None INDICATION: Hemateme sis [id number] DISCUSSION: Frontal view of the chest obtained at 1755 hours. HEART AND MEDIASTINUM: The cardiomediastinal silhouette is unremarkable. LINES: None. LUNGS: The lungs are well inflated and clear. No pneumonia or pulmonary edema. PLEURA: No pleural effusion or pn eumothorax. BONES AND SOFT TISSUES: A linear lucency across the right soham ral neck is not specific. The soft tissues are normal. Visualized upper a bdomen is unremarkable. IMPRESSION: No acute cardiopulmonary disease. Lucency across the right humeral neck may be artifactual. Please correlate for history of trauma. Signed by: Dr. Michelle Walls MD on 11/22/2018 6:44 PM Dictated By: MICHELLE WALLS MD 43 Transcribed By: PAULA on 11/22/181843 COPY TO: NEIL PEREZ MD [id number] 11:31:00* Test Item Value Reference Range Interpretation Comments GLUBED (test code = GLUBED) 163 mg/dL 74-106 H Performed by certified ground transportation operator at [facility] [id number] 05:52:00* Test Item Value Reference Range Interpretation Comments GLUBED (test code = GLUBED) 339 mg/dL 74-106 H Performed by certified ground transportation operator at [facility] BASIC METABOLIC [id number] 05:04:00* Test Item Value Reference Range Interpretation Comments SODIUM (test code = NA) 137 mmol/L 136-145 N POTASSIUM (test code = K) 3.8 mmol/L 3.5-5.1 N CHLORIDE (test code = CL) 102.0 mmol/L 98-107 N CARBON DIOXIDE (test code = CO2) 29.0 mmol/L 21-32 N ANION GAP (test code = GAP) 9.8 10-20 L GLUCOSE (test code = GLU) 309 mg/dL 74-106 H BLOOD UREA NITROGEN (test code = BUN) 19 mg/dL 7-18 H GLOMERULAR FILTRATION RATE (test code = GFR) > 60 mL/min >=60 Estimated GFR by using Modified MDRD formula.Chronic kidney disease is defined as either kidney damageor GFR <60 mL/min/1.73 m2 for >3 months. CREATININE (test code = CREAT) 1.40 mg/dL 0.7-1.3 H BUN/CREATININE RATIO (test code = BUN/CREA) 13.6 10-20 N CALCIUM (test code = CA) 8.6 mg/dL 8.5-10.1 N [id number] 05:04:00* Test Item Value Reference Range Interpretation Comments PHOSPHORUS (test code = PHOS) 2.5 mg/dL 2.5-4.9 N [id number] 05:04:00* Test Item Value Reference Range Interpretation Comments MAGNESIUM (test code = MAG) 1.7 mg/dL 1.8-2.4 L CBC W/AUTO [id number] 04:58:00* Test Item Value Reference Range Interpretation Comments WHITE BLOOD CELL (test code = WBC) 8.3 K/mm3 4.5-12.5 N RED BLOOD CELL (test code = RBC) 3.92 mill/mm3 4.0-5.8 L HEMOGLOBIN (test code = HGB) 10.9 gram/dL 13.0-17.5 L RESULT VERIFIED BY REPEAT ANALYSIS HEMATOCRIT (test code = HCT) 34.2 % 42.0-52.0 L MEAN CELL VOLUME (test code = MCV) 87.2 fL 80-98 N MEAN CELL HGB (test code = MCH) 27.8 picogram 27.0-33.0 N MEAN CELL HGB CONCETRATION (test code = MCHC) 31.9 gram/dL 33.0-36. 0 L RED CELL DISTRIBUTION WIDTH (test code = RDW) 13.2 % 11.6-16. 2 N RED CELL DISTRIBUTION WIDTH SD (test code = RDW-SD) 42.4 fL 37 .0-51.0 N PLATELET COUNT (test code = PLT) 169 K/mm3 150-450 N MEAN PLATELET VOLUME (test code = MPV) 10.3 fL 6.7-11.0 N NEUTROPHIL % (test code = NT%) 65.6 % 39.0-69.0 N IMMATURE GRANULOCYTE % (test code = IG%) 0.5 % 0.0-5.0 N LYMPHOCYTE % (test code = LY%) 18.3 % 25.0-55.0 L MONOCYTE % (test code = MO%) 12.9 % 0.0-10.0 H EOSINOPHIL % (test code = EO%) 2.0 % 0.0-5.0 N BASOPHIL % (test code = BA%) 0.7 % 0.0-1.0 N NUCLEATED RBC % (test code = NRBC%) 0.0 % 0-0 N NEUTROPHIL # (test code = NT#) 5.46 K/mm3 1.8-7.7 N IMMATURE GRANULOCYTE # (test code = IG#) 0.04 x10 3/uL 0-0.03 H LYMPHOCYTE # (test code = LY#) 1.52 K/mm3 1.0-5.0 N MONOCYTE # (test code = MO#) 1.07 K/mm3 0-0.8 H EOSINOPHIL # (test code = EO#) 0.17 K/mm3 0.0-0.5 N BASOPHIL # (test code = BA#) 0.06 K/mm3 0.0-0.2 N NUCLEATED RBC # (test code = NRBC#) 0.00 K/mm3 0.0-0.1 N MANUAL DIFF REQUIRED (test code = MDIFF) NO BASIC METABOLIC [id number] 04:54:00* Test Item Value Reference Range Interpretation Comments SODIUM (test code = NA) 137 mmol/L 136-145 N POTASSIUM (test code = K) 3.8 mmol/L 3.5-5.1 N CHLORIDE (test code = CL) 102.0 mmol/L 98-107 N CARBON DIOXIDE (test code = CO2) mmol/L 21-32 ANION GAP (test code = GAP) 10-20 GLUCOSE (test code = GLU) mg/dL 74-106 BLOOD UREA NITROGEN (test code = BUN) mg/dL 7-18 GLOMERULAR FILTRATION RATE (test code = GFR) mL/min >=60 CREATININE (test code = CREAT) mg/dL 0.7-1.3 BUN/CREATININE RATIO (test code = BUN/CREA) 10-20 CALCIUM (test code = CA) mg/dL 8.5-10.1 [id number] 04:54:00* Test Item Value Reference Range Interpretation Comments PHOSPHORUS (test code = PHOS) mg/dL 2.5-4.9 [id number] 04:54:00* Test Item Value Reference Range Interpretation Comments MAGNESIUM (test code = MAG) mg/dL 1.8-2.4 [id number] 21:18:00* Test Item Value Reference Range Interpretation Comments GLUBED (test code = GLUBED) 363 mg/dL 74-106 H Performed by certified ground transportation operator at [facility] [id number] 18:20:00* Test Item Value Reference Range Interpretation Comments GLYCOSYLATED HEMOGLOBIN (HA1C) (test code = GLYHGB) 9.0 % HbA1 4. 8-6.0 H ESTIMATED AVERAGE GLUCOSE (test code = EAG) 212 MG/DL [id number] 17:42:00* Test Item Value Reference Range Interpretation Comments GLUBED (test code = GLUBED) 216 mg/dL 74-106 H Performed by certified ground transportation operator at [facility] [id number] 13:09:00* Test Item Value Reference Range Interpretation Comments GLUBED (test code = GLUBED) 209 mg/dL 74-106 H Performed by certified ground transportation operator at [facility] LACTIC [id number] 08:53:00* Test Item Value Reference Range Interpretation Comments LACTIC ACID (test code = LACT) 1.5 mmol/L 0.4-1.9 N PROCALCITONIN (PCT)2018-09-29 07:40:00* Test Item Value Reference Range Interpretation Comments PROCALCITONIN (PCT) (test code = PROCAL) < 0.05 ng/ml Concentration Interpretation (ng/mL) <0.51 Sepsis is not likely. Local bacterial infection is possible. (LOW RISK for progression to Sepsis) 0.51 - 2.00 Sepsis is possible, but other conditions are known to elevate PCT as well. (MODERATE RISK for progression to Sepsis) > 2.00 Sepsis is likely, unless other causes are known. (HIGH RISK for progression to Severe Sepsis or Septic Shock) 10.00 High likelihood of Severe Sepsis or Septic or higher Shock. *Increased PCT levels may not always be related to systemic bacterial infection.*Low PCT levels do not automatically exclude the presence of bacterial infection.*All results should be interpreted taking into account the patients history. PROTHROMBIN [id number] 07:23:00* Test Item Value Reference Range Interpretation Comments PROTHROMBIN TIME PATIENT (test code = PTP) 11.4 seconds 9.0-14.0 N INTERNATIONAL NORMAL RATIO (test code = INR) 1.0 0.8-1.2 N The therapeutic range for oral anticoagulant therapy formost indications is an international normalized ratio (INR)of between 2.0 and 3.0. The recommended therapeutic INRrange for various clinical situations is listed below: Clinical Situation INR range Pulmonary e mbolism treatment (2.0-3.0)Venous thrombosis treatmentVenous thrombosis prophylaxis (high risk surgery)Prevention of systemic embolism from: Acute myocardial infarction Valvular heart disease Atrial fibrillation Mechanical prosthetic heart valves (2.5-3.5) IS PATIENT ON ANTICOAGULANTS? NTHROMBOPLASTIN TIME [id number] 07:23:00* Test Item Value Reference Range Interpretation Comments THROMBOPLASTIN TIME PARTIAL (test code = PTT) 26.2 seconds 25.0-36. 5 N IS PATIENT ON ANTICOAGULANTS? NBASIC METABOLIC [id number] 06:41:00* Test Item Value Reference Range Interpretation Comments SODIUM (test code = NA) 141 mmol/L 136-145 N POTASSIUM (test code = K) 3.8 mmol/L 3.5-5.1 N CHLORIDE (test code = CL) 106.0 mmol/L 98-107 N CARBON DIOXIDE (test code = CO2) 27.0 mmol/L 21-32 N ANION GAP (test code = GAP) 11.8 10-20 N GLUCOSE (test code = GLU) 143 mg/dL 74-106 H BLOOD UREA NITROGEN (test code = BUN) 22 mg/dL 7-18 H GLOMERULAR FILTRATION RATE (test code = GFR) > 60 mL/min >=60 Estimated GFR by using Modified MDRD formula.Chronic kidney disease is defined as either kidney damageor GFR <60 mL/min/1.73 m2 for >3 months. CREATININE (test code = CREAT) 1.40 mg/dL 0.7-1.3 H BUN/CREATININE RATIO (test code = BUN/CREA) 15.7 10-20 N CALCIUM (test code = CA) 9.7 mg/dL 8.5-10.1 N HEPATIC FUNCTION [id number] 06:41:00* Test Item Value Reference Range Interpretation Comments TOTAL PROTEIN (test code = PROT) 8.2 gram/dL 6.4-8.2 N ALBUMIN (test code = ALB) 4.2 g/dL 3.4-5.0 N GLOBULIN (test code = GLOB) 4.0 gram/dL 2.7-4.2 N ALBUMIN/GLOBULIN RATIO (test code = A/G) 1.1 0.75-1.50 N BILIRUBIN TOTAL (test code = BILT) 0.50 mg/dL 0.0-1.0 N BILIRUBIN DIRECT (test code = BILD) 0.16 mg/dL 0.0-0.20 N SGOT/AST (test code = AST) 14 IUnit/L 15-37 L SGPT/ALT (test code = ALT) 15 IUnit/L 12-78 N ALKALINE PHOSPHATASE TOTAL (test code = ALKP) 107 IUnit/L 45-117 N Note change in reference range due to change in reagent. [id number] 06:41:00* Test Item Value Reference Range Interpretation Comments LIPASE (test code = LIP) 16 U/L 73.0-393.0 L [id number] 06:41:00* Test Item Value Reference Range Interpretation Comments TROPONIN-I (test code = TROPI) <0.015 ng/mL 0-0.045 N BASIC METABOLIC [id number] 06:27:00* Test Item Value Reference Range Interpretation Comments SODIUM (test code = NA) 141 mmol/L 136-145 N POTASSIUM (test code = K) 3.8 mmol/L 3.5-5.1 N CHLORIDE (test code = CL) 106.0 mmol/L 98-107 N CARBON DIOXIDE (test code = CO2) mmol/L 21-32 ANION GAP (test code = GAP) 10-20 GLUCOSE (test code = GLU) mg/dL 74-106 BLOOD UREA NITROGEN (test code = BUN) mg/dL 7-18 GLOMERULAR FILTRATION RATE (test code = GFR) mL/min >=60 CREATININE (test code = CREAT) mg/dL 0.7-1.3 BUN/CREATININE RATIO (test code = BUN/CREA) 10-20 CALCIUM (test code = CA) mg/dL 8.5-10.1 HEPATIC FUNCTION [id number] 06:27:00* Test Item Value Reference Range Interpretation Comments TOTAL PROTEIN (test code = PROT) gram/dL 6.4-8.2 ALBUMIN (test code = ALB) g/dL 3.4-5.0 GLOBULIN (test code = GLOB) gram/dL 2.7-4.2 ALBUMIN/GLOBULIN RATIO (test code = A/G) 0.75-1.50 BILIRUBIN TOTAL (test code = BILT) mg/dL 0.0-1.0 BILIRUBIN DIRECT (test code = BILD) mg/dL 0.0-0.20 SGOT/AST (test code = AST) IUnit/L 15-37 SGPT/ALT (test code = ALT) IUnit/L 12-78 ALKALINE PHOSPHATASE TOTAL (test code = ALKP) IUnit/L 45-117 [id number] 06:27:00* Test Item Value Reference Range Interpretation Comments LIPASE (test code = LIP) U/L 73.0-393.0 [id number] 06:27:00* Test Item Value Reference Range Interpretation Comments TROPONIN-I (test code = TROPI) ng/mL 0-0.045 POC LACTIC [id number] 06:23:00* Test Item Value Reference Range Interpretation Comments POC LACTIC ACID (test code = POCLAC) 1.46 MMOL/L 0.4-2.2 N CBC W/O [id number] 06:22:00* Test Item Value Reference Range Interpretation Comments WHITE BLOOD CELL (test code = WBC) 7.4 K/mm3 4.5-12.5 N RED BLOOD CELL (test code = RBC) 4.74 mill/mm3 4.0-5.8 N HEMOGLOBIN (test code = HGB) 13.1 gram/dL 13.0-17.5 N HEMATOCRIT (test code = HCT) 41.0 % 42.0-52.0 L MEAN CELL VOLUME (test code = MCV) 86.5 fL 80-98 N MEAN CELL HGB (test code = MCH) 27.6 picogram 27.0-33.0 N MEAN CELL HGB CONCETRATION (test code = MCHC) 32.0 gram/dL 33.0-36. 0 L RED CELL DISTRIBUTION WIDTH (test code = RDW) 13.6 % 11.6-16. 2 N PLATELET COUNT (test code = PLT) 142 K/mm3 150-450 L MEAN PLATELET VOLUME (test code = MPV) 11.6 fL 6.7-11.0 H GASTRIC [id number] 00:53:00 [place] [address] Patient Name: BREE ASHTON MR #: [id number] : 1975 Age/Sex: 42/M Req #: [id number] Adm Physician: Ordered by: TAVIA GARCIA MD Report #: [id number] Location: [place] Room/Bed: Procedure: 9824-9830 N M/GASTRIC EMPTYING Exam Date: Exam Time: REPORT STATUS: Signed Solid-phase gastric emptying study Reason for examination: GERD with esophagitis; gastritis The protocol used for this study is based on the Consensus Recommendations for Gastric Scintigraphy by the [employer] and the Society of [employer]. Clinical information: The patient is diabetic; blood sugar this morning is 82 mg/dL. The patient has not had previous gastrointestinal surgery. The patient is on metoclopramide and dicyc lomine. The patient has been fasting for at least 6 hours prior to this exam. Radiopharmaceutical: [id number] sulfur colloid 1 mCi Report: The radioph armaceutical was added to 1/2 cup egg whites that were then prepared and serve d with 2 pieces of white bread toasted, 30 grams of jam and 4 ounces of water. The patient took the meal orally without difficulty. Images were obtained of the abdomen in the anterior and posterior projections at 10 minutes post the meal and at 1and 2 hours. Uptake was determined from the geometric mean of th e anterior and posterior counts and the counts were corrected for decay of the radiolabel. The percent gastric retention of the labeled meal at: 1 h our was 39% (normal 30-90%) 2 hours was 17% (normal <60%; if less than 35% at 2 hours, study is considered normal) Impression: The pattern of gastric emptying is normal. Scan findings do not support the clinical diagnosis of gastroparesis. Signed by: Dr. Dixie Ledesma M.D. on 09/21/2018 12:57 AM Dictated By: DIXIE LEDESMA MD Transcribed By: PAULA on 09/21/1856 COPY TO: TAVIA GARCIA MD [id number] 11:39:00* Test Item Value Reference Range Interpretation Comments GLUBED (test code = GLUBED) 102 mg/dL 74-106 N Performed by certified ground transportation operator at [facility] BASIC METABOLIC [id number] 11:27:00* Test Item Value Reference Range Interpretation Comments SODIUM (test code = NA) 141 mmol/L 136-145 N POTASSIUM (test code = K) 3.3 mmol/L 3.5-5.1 L CHLORIDE (test code = CL) 106.0 mmol/L 98-107 N CARBON DIOXIDE (test code = CO2) 29.0 mmol/L 21-32 N ANION GAP (test code = GAP) 9.3 10-20 L GLUCOSE (test code = GLU) 94 mg/dL 74-106 N BLOOD UREA NITROGEN (test code = BUN) 11 mg/dL 7-18 N GLOMERULAR FILTRATION RATE (test code = GFR) > 60 mL/min >=60 Estimated GFR by using Modified MDRD formula.Chronic kidney disease is defined as either kidney damageor GFR <60 mL/min/1.73 m2 for >3 months. CREATININE (test code = CREAT) 1.10 mg/dL 0.7-1.3 N BUN/CREATININE RATIO (test code = BUN/CREA) 10.0 10-20 N CALCIUM (test code = CA) 8.6 mg/dL 8.5-10.1 N CBC W/AUTO [id number] 11:02:00* Test Item Value Reference Range Interpretation Comments WHITE BLOOD CELL (test code = WBC) 7.8 K/mm3 4.5-12.5 N RED BLOOD CELL (test code = RBC) 4.52 mill/mm3 4.0-5.8 N HEMOGLOBIN (test code = HGB) 12.7 gram/dL 13.0-17.5 L HEMATOCRIT (test code = HCT) 39.8 % 42.0-52.0 L MEAN CELL VOLUME (test code = MCV) 88.1 fL 80-98 N MEAN CELL HGB (test code = MCH) 28.1 picogram 27.0-33.0 N MEAN CELL HGB CONCETRATION (test code = MCHC) 31.9 gram/dL 33.0-36. 0 L RED CELL DISTRIBUTION WIDTH (test code = RDW) 12.6 % 11.6-16. 2 N RED CELL DISTRIBUTION WIDTH SD (test code = RDW-SD) 41.1 fL 37 .0-51.0 N PLATELET COUNT (test code = PLT) 175 K/mm3 150-450 N MEAN PLATELET VOLUME (test code = MPV) 10.8 fL 6.7-11.0 N NEUTROPHIL % (test code = NT%) 60.8 % 39.0-69.0 N IMMATURE GRANULOCYTE % (test code = IG%) 0.3 % 0.0-5.0 N LYMPHOCYTE % (test code = LY%) 24.9 % 25.0-55.0 L MONOCYTE % (test code = MO%) 11.4 % 0.0-10.0 H EOSINOPHIL % (test code = EO%) 1.8 % 0.0-5.0 N BASOPHIL % (test code = BA%) 0.8 % 0.0-1.0 N NUCLEATED RBC % (test code = NRBC%) 0.0 % 0-0 N NEUTROPHIL # (test code = NT#) 4.78 K/mm3 1.8-7.7 N IMMATURE GRANULOCYTE # (test code = IG#) 0.02 x10 3/uL 0-0.03 N LYMPHOCYTE # (test code = LY#) 1.95 K/mm3 1.0-5.0 N MONOCYTE # (test code = MO#) 0.89 K/mm3 0-0.8 H EOSINOPHIL # (test code = EO#) 0.14 K/mm3 0.0-0.5 N BASOPHIL # (test code = BA#) 0.06 K/mm3 0.0-0.2 N NUCLEATED RBC # (test code = NRBC#) 0.00 K/mm3 0.0-0.1 N MANUAL DIFF REQUIRED (test code = MDIFF) NO [id number] 07:41:00* Test Item Value Reference Range Interpretation Comments GLUBED (test code = GLUBED) 111 mg/dL 74-106 H Performed by certified ground transportation operator at [facility] [id number] 21:20:00* Test Item Value Reference Range Interpretation Comments GLUBED (test code = GLUBED) 201 mg/dL 74-106 H Performed by certified ground transportation operator at [facility] [id number] 16:36:00* Test Item Value Reference Range Interpretation Comments GLUBED (test code = GLUBED) 214 mg/dL 74-106 H Performed by certified ground transportation operator at [facility] [id number] 12:00:00* Test Item Value Reference Range Interpretation Comments GLUBED (test code = GLUBED) 266 mg/dL 74-106 H Performed by certified ground transportation operator at [facility] [id number] 07:31:00* Test Item Value Reference Range Interpretation Comments GLUBED (test code = GLUBED) 252 mg/dL 74-106 H Performed by certified ground transportation operator at [facility] [id number] 21:20:00* Test Item Value Reference Range Interpretation Comments GLUBED (test code = GLUBED) 109 mg/dL 74-106 H Performed by certified ground transportation operator at [facility] [id number] 16:47:00* Test Item Value Reference Range Interpretation Comments GLUBED (test code = GLUBED) 328 mg/dL 74-106 H Performed by certified ground transportation operator at [facility] [id number] 11:32:00* Test Item Value Reference Range Interpretation Comments GLUBED (test code = GLUBED) 145 mg/dL 74-106 H Performed by certified ground transportation operator at [facility] [id number] 07:54:00* Test Item Value Reference Range Interpretation Comments GLUBED (test code = GLUBED) 347 mg/dL 74-106 H Performed by certified ground transportation operator at [facility] CBC W/AUTO [id number] 07:28:00* Test Item Value Reference Range Interpretation Comments WHITE BLOOD CELL (test code = WBC) 10.5 K/mm3 4.5-12.5 N RED BLOOD CELL (test code = RBC) 4.01 mill/mm3 4.0-5.8 N HEMOGLOBIN (test code = HGB) 11.3 gram/dL 13.0-17.5 L HEMATOCRIT (test code = HCT) 36.4 % 42.0-52.0 L MEAN CELL VOLUME (test code = MCV) 90.8 fL 80-98 N MEAN CELL HGB (test code = MCH) 28.2 picogram 27.0-33.0 N MEAN CELL HGB CONCETRATION (test code = MCHC) 31.0 gram/dL 33.0-36. 0 L RED CELL DISTRIBUTION WIDTH (test code = RDW) 13.3 % 11.6-16. 2 N RED CELL DISTRIBUTION WIDTH SD (test code = RDW-SD) 44.5 fL 37 .0-51.0 N PLATELET COUNT (test code = PLT) 152 K/mm3 150-450 N MEAN PLATELET VOLUME (test code = MPV) 11.5 fL 6.7-11.0 H NEUTROPHIL % (test code = NT%) 78.6 % 39.0-69.0 H IMMATURE GRANULOCYTE % (test code = IG%) 0.4 % 0.0-5.0 N LYMPHOCYTE % (test code = LY%) 9.7 % 25.0-55.0 L MONOCYTE % (test code = MO%) 10.7 % 0.0-10.0 H EOSINOPHIL % (test code = EO%) 0.1 % 0.0-5.0 N BASOPHIL % (test code = BA%) 0.5 % 0.0-1.0 N NUCLEATED RBC % (test code = NRBC%) 0.0 % 0-0 N NEUTROPHIL # (test code = NT#) 8.22 K/mm3 1.8-7.7 H IMMATURE GRANULOCYTE # (test code = IG#) 0.04 x10 3/uL 0-0.03 H LYMPHOCYTE # (test code = LY#) 1.01 K/mm3 1.0-5.0 N MONOCYTE # (test code = MO#) 1.12 K/mm3 0-0.8 H EOSINOPHIL # (test code = EO#) 0.01 K/mm3 0.0-0.5 N BASOPHIL # (test code = BA#) 0.05 K/mm3 0.0-0.2 N NUCLEATED RBC # (test code = NRBC#) 0.00 K/mm3 0.0-0.1 N MANUAL DIFF REQUIRED (test code = MDIFF) NO BASIC METABOLIC [id number] 07:10:00* Test Item Value Reference Range Interpretation Comments SODIUM (test code = NA) 138 mmol/L 136-145 N POTASSIUM (test code = K) 4.1 mmol/L 3.5-5.1 N CHLORIDE (test code = CL) 104.0 mmol/L 98-107 N CARBON DIOXIDE (test code = CO2) 26.0 mmol/L 21-32 N ANION GAP (test code = GAP) 12.1 10-20 N GLUCOSE (test code = GLU) 341 mg/dL 74-106 H BLOOD UREA NITROGEN (test code = BUN) 24 mg/dL 7-18 H GLOMERULAR FILTRATION RATE (test code = GFR) > 60 mL/min >=60 Estimated GFR by using Modified MDRD formula.Chronic kidney disease is defined as either kidney damageor GFR <60 mL/min/1.73 m2 for >3 months. CREATININE (test code = CREAT) 1.50 mg/dL 0.7-1.3 H BUN/CREATININE RATIO (test code = BUN/CREA) 16.0 10-20 N CALCIUM (test code = CA) 8.8 mg/dL 8.5-10.1 N BASIC METABOLIC [id number] 06:59:00* Test Item Value Reference Range Interpretation Comments SODIUM (test code = NA) 138 mmol/L 136-145 N POTASSIUM (test code = K) 4.1 mmol/L 3.5-5.1 N CHLORIDE (test code = CL) 104.0 mmol/L 98-107 N CARBON DIOXIDE (test code = CO2) mmol/L 21-32 ANION GAP (test code = GAP) 10-20 GLUCOSE (test code = GLU) mg/dL 74-106 BLOOD UREA NITROGEN (test code = BUN) mg/dL 7-18 GLOMERULAR FILTRATION RATE (test code = GFR) mL/min >=60 CREATININE (test code = CREAT) mg/dL 0.7-1.3 BUN/CREATININE RATIO (test code = BUN/CREA) 10-20 CALCIUM (test code = CA) mg/dL 8.5-10.1 [id number] 22:44:00* Test Item Value Reference Range Interpretation Comments GLUBED (test code = GLUBED) 364 mg/dL 74-106 H Performed by certified ground transportation operator at [facility] BASIC METABOLIC [id number] 17:43:00* Test Item Value Reference Range Interpretation Comments SODIUM (test code = NA) 139 mmol/L 136-145 N POTASSIUM (test code = K) 4.5 mmol/L 3.5-5.1 N CHLORIDE (test code = CL) 102.0 mmol/L 98-107 N CARBON DIOXIDE (test code = CO2) 26.0 mmol/L 21-32 N ANION GAP (test code = GAP) 15.5 10-20 N GLUCOSE (test code = GLU) 225 mg/dL 74-106 H BLOOD UREA NITROGEN (test code = BUN) 24 mg/dL 7-18 H GLOMERULAR FILTRATION RATE (test code = GFR) 58 mL/min >=60 Estimated GFR by using Modified MDRD formula.Chronic kidney disease is defined as either kidney damageor GFR <60 mL/min/1.73 m2 for >3 months. CREATININE (test code = CREAT) 1.60 mg/dL 0.7-1.3 H BUN/CREATININE RATIO (test code = BUN/CREA) 15.0 10-20 N CALCIUM (test code = CA) 9.9 mg/dL 8.5-10.1 N HEPATIC FUNCTION [id number] 17:43:00* Test Item Value Reference Range Interpretation Comments TOTAL PROTEIN (test code = PROT) 8.1 gram/dL 6.4-8.2 N ALBUMIN (test code = ALB) 4.5 g/dL 3.4-5.0 N GLOBULIN (test code = GLOB) 3.6 gram/dL 2.7-4.2 N ALBUMIN/GLOBULIN RATIO (test code = A/G) 1.3 0.75-1.50 N BILIRUBIN TOTAL (test code = BILT) 0.50 mg/dL 0.0-1.0 N BILIRUBIN DIRECT (test code = BILD) 0.11 mg/dL 0.0-0.20 N SGOT/AST (test code = AST) 19 IUnit/L 15-37 N SGPT/ALT (test code = ALT) 17 IUnit/L 12-78 N ALKALINE PHOSPHATASE TOTAL (test code = ALKP) 125 IUnit/L 45-117 H Note change in reference range due to change in reagent. [id number] 17:43:00* Test Item Value Reference Range Interpretation Comments LIPASE (test code = LIP) 18 U/L 73.0-393.0 L BASIC METABOLIC [id number] 17:22:00* Test Item Value Reference Range Interpretation Comments SODIUM (test code = NA) 139 mmol/L 136-145 N POTASSIUM (test code = K) 4.5 mmol/L 3.5-5.1 N CHLORIDE (test code = CL) 102.0 mmol/L 98-107 N CARBON DIOXIDE (test code = CO2) mmol/L 21-32 ANION GAP (test code = GAP) 10-20 GLUCOSE (test code = GLU) mg/dL 74-106 BLOOD UREA NITROGEN (test code = BUN) mg/dL 7-18 GLOMERULAR FILTRATION RATE (test code = GFR) mL/min >=60 CREATININE (test code = CREAT) mg/dL 0.7-1.3 BUN/CREATININE RATIO (test code = BUN/CREA) 10-20 CALCIUM (test code = CA) mg/dL 8.5-10.1 HEPATIC FUNCTION [id number] 17:22:00* Test Item Value Reference Range Interpretation Comments TOTAL PROTEIN (test code = PROT) gram/dL 6.4-8.2 ALBUMIN (test code = ALB) g/dL 3.4-5.0 GLOBULIN (test code = GLOB) gram/dL 2.7-4.2 ALBUMIN/GLOBULIN RATIO (test code = A/G) 0.75-1.50 BILIRUBIN TOTAL (test code = BILT) mg/dL 0.0-1.0 BILIRUBIN DIRECT (test code = BILD) mg/dL 0.0-0.20 SGOT/AST (test code = AST) IUnit/L 15-37 SGPT/ALT (test code = ALT) IUnit/L 12-78 ALKALINE PHOSPHATASE TOTAL (test code = ALKP) IUnit/L 45-117 [id number] 17:22:00* Test Item Value Reference Range Interpretation Comments LIPASE (test code = LIP) U/L 73.0-393.0 URINALYSIS [id number] 17:00:00* Test Item Value Reference Range Interpretation Comments UA COLOR (test code = COLU) Light-Yellow YELLOW UA APPEARANCE (test code = APPU) CLEAR CLEAR UA GLUCOSE DIPSTICK (test code = DGLUU) NEGATIVE mg/dL NEGATIVE UA BILIRUBIN DIPSTICK (test code = BILU) NEGATIVE mg/dL NEGATIVE UA KETONE DIPSTICK (test code = KETU) TRACE mg/dL NEGATIVE A UA SPECIFIC GRAVITY (test code = SGU) 1.021 1.001-1.035 UA BLOOD DIPSTICK (test code = JOANNE) Negative mg/dL NEGATIVE UA PH DIPSTICK (test code = JOHN) 8.0 5.0-8.0 UA PROTEIN DIPSTICK (test code = PROU) 50 (1+) mg/dL NEGATIVE A UA UROBILINIOGEN DIPSTICK (test code = URO) Normal mg/dL NEGATIVE UA NITRITE DIPSTICK (test code = JOHNSON) NEGATIVE NEGATIVE UA LEUKOCYTE ESTERASE W REFLEX (test code = LEUUR) 25 Jeannine/uL (Trace) Jeannine/uL NEGATIVE A UA WBC (test code = WBCU) 11-20 per HPF 0-5 A UA RBC (test code = RBCU) 0-2 #/HPF 0-5 UA EPITHELIAL CELLS (test code = EPIU) Few (2-5/hpf) per HPF FEW UA BACTERIA (test code = BACU) FEW #/HPF NONE A UA HYALINE CAST (test code = HYALU) 3-5 #/LPF 0-5 UA MUCUS (test code = MUCU) FEW #/LPF FEW Urine Source? Clean CatchURINALYSIS [id number] 16:55:00* Test Item Value Reference Range Interpretation Comments UA COLOR (test code = COLU) Light-Yellow YELLOW UA APPEARANCE (test code = APPU) CLEAR CLEAR UA GLUCOSE DIPSTICK (test code = DGLUU) NEGATIVE mg/dL NEGATIVE UA BILIRUBIN DIPSTICK (test code = BILU) NEGATIVE mg/dL NEGATIVE UA KETONE DIPSTICK (test code = KETU) TRACE mg/dL NEGATIVE A UA SPECIFIC GRAVITY (test code = SGU) 1.021 1.001-1.035 UA BLOOD DIPSTICK (test code = JOANNE) Negative mg/dL NEGATIVE UA PH DIPSTICK (test code = JOHN) 8.0 5.0-8.0 UA PROTEIN DIPSTICK (test code = PROU) 50 (1+) mg/dL NEGATIVE A UA UROBILINIOGEN DIPSTICK (test code = URO) Normal mg/dL NEGATIVE UA NITRITE DIPSTICK (test code = JOHNSON) NEGATIVE NEGATIVE UA LEUKOCYTE ESTERASE W REFLEX (test code = LEUUR) 25 Jeannine/uL (Trace) Jeannine/uL NEGATIVE A UA WBC (test code = WBCU) per HPF 0-5 UA RBC (test code = RBCU) per HPF 0-5 UA EPITHELIAL CELLS (test code = EPIU) per HPF Few UA BACTERIA (test code = BACU) per HPF NONE Urine Source? Clean CatchCBC W/O [id number] 16:40:00* Test Item Value Reference Range Interpretation Comments WHITE BLOOD CELL (test code = WBC) 8.1 K/mm3 4.5-12.5 N RED BLOOD CELL (test code = RBC) 4.56 mill/mm3 4.0-5.8 N HEMOGLOBIN (test code = HGB) 13.0 gram/dL 13.0-17.5 N HEMATOCRIT (test code = HCT) 41.2 % 42.0-52.0 L MEAN CELL VOLUME (test code = MCV) 90.4 fL 80-98 N MEAN CELL HGB (test code = MCH) 28.5 picogram 27.0-33.0 N MEAN CELL HGB CONCETRATION (test code = MCHC) 31.6 gram/dL 33.0-36. 0 L RED CELL DISTRIBUTION WIDTH (test code = RDW) 13.5 % 11.6-16. 2 N PLATELET COUNT (test code = PLT) 170 K/mm3 150-450 N MEAN PLATELET VOLUME (test code = MPV) 10.7 fL 6.7-11.0 N CBC W/O [id number] 16:37:00* Test Item Value Reference Range Interpretation Comments WHITE BLOOD CELL (test code = WBC) K/mm3 4.5-12.5 RED BLOOD CELL (test code = RBC) mill/mm3 4.0-5.8 HEMOGLOBIN (test code = HGB) 13.0 gram/dL 13.0-17.5 N HEMATOCRIT (test code = HCT) % 42.0-52.0 MEAN CELL VOLUME (test code = MCV) fL 80-98 MEAN CELL HGB (test code = MCH) picogram 27.0-33.0 MEAN CELL HGB CONCETRATION (test code = MCHC) gram/dL 33.0-36. 0 RED CELL DISTRIBUTION WIDTH (test code = RDW) % 11.6-16. 2 PLATELET COUNT (test code = PLT) K/mm3 150-450 MEAN PLATELET VOLUME (test code = MPV) fL 6.7-11.0 US ABDOMEN [id number] 10:20:00 [place] [address] Patient Name: BREE ASHTON MR #: [id number] : 1975 Age/Sex: 42/M Req #: [id number] Adm Physician: Ordered by: TAVIA GARCIA MD Report #: [id number] Location: US Room/Bed: Procedure: [id number] U S/US ABDOMEN COMPLETE Exam Date: Exam Time: REPORT STATUS: Signed TECHNIQUE: Ult rasound evaluation of the abdomen. Color doppler was utilized to supplement the evaluation. HISTORY: Gastroparesis, nausea COMPARISON: None availab le. DISCUSSION: LIVER: No focal lesion is identified. The liver m easures 17 cm in the right midclavicular line. BILIARY: Normal appearan ce, without evidence for gallstones, gallbladder wall thickening or pericholec ystic fluid. The sonographic Champagne's sign is reported as negative. The comm on bile duct measures 0.3 cm. PANCREAS: Incompletely visualized due to o verlying bowel gas, especially the tail, but no abnormality identified involvi ng the visualized portions of the pancreas. SPLEEN: No splenomegal y. PERITONEUM: No free fluid. KIDNEYS: Right: Measures 12 cm in length. No hydronephrosis or solid mass lesion identified. Left: Measures 11 cm in length. No hydronephrosis or solid mass lesion identified. VASCULATURE: Aorta: Visualized portions appear unremarkable. Interior vena cava: Visualized portions appear unremarkable. Portal Vein: Nondilated with hepatopedal flow. IMPRESSION: 1. Hepatomegal y. 2. Otherwise, unremarkable. Signed by: Dr. Tariq Srivastava D.O., M.M .M. on 06/23/2018 10:23 AM Dictated By: TARIQ SRIVASTAVA DO Electronically Sig lizette By: TARIQ SRIVASTAVA DO on 06/23/18 1023 Transcribed By: PAULA on 06/23/18 102 3 COPY TO: TAVIA GARCIA MD [id number] 05:55:00* Test Item Value Reference Range Interpretation Comments GLUBED (test code = GLUBED) 195 mg/dL 74-106 H Performed by certified ground transportation operator at [facility] [id number] 17:33:00* Test Item Value Reference Range Interpretation Comments GLUBED (test code = GLUBED) 151 mg/dL 74-106 H Performed by certified ground transportation operator at [facility] BASIC METABOLIC [id number] 15:46:00* Test Item Value Reference Range Interpretation Comments SODIUM (test code = NA) 136 mmol/L 136-145 N POTASSIUM (test code = K) 3.0 mmol/L 3.5-5.1 L CHLORIDE (test code = CL) 98.0 mmol/L 98-107 N CARBON DIOXIDE (test code = CO2) 30.0 mmol/L 21-32 N ANION GAP (test code = GAP) 11.0 10-20 N GLUCOSE (test code = GLU) 179 mg/dL 74-106 H BLOOD UREA NITROGEN (test code = BUN) 10 mg/dL 7-18 N GLOMERULAR FILTRATION RATE (test code = GFR) > 60 mL/min >=60 Estimated GFR by using Modified MDRD formula.Chronic kidney disease is defined as either kidney damageor GFR <60 mL/min/1.73 m2 for >3 months. CREATININE (test code = CREAT) 0.80 mg/dL 0.7-1.3 N BUN/CREATININE RATIO (test code = BUN/CREA) 13.2 10-20 N CALCIUM (test code = CA) 7.7 mg/dL 8.5-10.1 L [id number] 12:16:00* Test Item Value Reference Range Interpretation Comments GLUBED (test code = GLUBED) 136 mg/dL 74-106 H Performed by certified ground transportation operator at [facility] [id number] 07:53:00* Test Item Value Reference Range Interpretation Comments GLUBED (test code = GLUBED) 129 mg/dL 74-106 H Performed by certified ground transportation operator at [facility] COMPREHENSIVE METABOLIC [id number] 06:41:00* Test Item Value Reference Range Interpretation Comments SODIUM (test code = NA) 139 mmol/L 136-145 N POTASSIUM (test code = K) 2.7 mmol/L 3.5-5.1 [facility] sults called to [id number] by [email or web address] 05/16/18 0636Critical results verified and read back by Nurse? Y CHLORIDE (test code = CL) 100.0 mmol/L 98-107 N CARBON DIOXIDE (test code = CO2) 28.0 mmol/L 21-32 N ANION GAP (test code = GAP) 13.7 10-20 N GLUCOSE (test code = GLU) 120 mg/dL 74-106 H BLOOD UREA NITROGEN (test code = BUN) 9 mg/dL 7-18 N GLOMERULAR FILTRATION RATE (test code = GFR) > 60 mL/min >=60 Estimated GFR by using Modified MDRD formula.Chronic kidney disease is defined as either kidney damageor GFR <60 mL/min/1.73 m2 for >3 months. CREATININE (test code = CREAT) 0.70 mg/dL 0.7-1.3 N BUN/CREATININE RATIO (test code = BUN/CREA) 12.5 10-20 N TOTAL PROTEIN (test code = PROT) 6.1 gram/dL 6.4-8.2 L ALBUMIN (test code = ALB) 2.9 g/dL 3.4-5.0 L GLOBULIN (test code = GLOB) 3.2 gram/dL 2.7-4.2 N ALBUMIN/GLOBULIN RATIO (test code = A/G) 0.9 0.75-1.50 N CALCIUM (test code = CA) 8.0 mg/dL 8.5-10.1 L BILIRUBIN TOTAL (test code = BILT) 0.80 mg/dL 0.0-1.0 N SGOT/AST (test code = AST) 10 IUnit/L 15-37 L SGPT/ALT (test code = ALT) 11 IUnit/L 12-78 L ALKALINE PHOSPHATASE TOTAL (test code = ALKP) 68 IUnit/L 45-117 N Note change in reference range due to change in reagent. CBC W/AUTO [id number] 05:31:00* Test Item Value Reference Range Interpretation Comments WHITE BLOOD CELL (test code = WBC) 7.7 K/mm3 4.5-12.5 N RED BLOOD CELL (test code = RBC) 4.04 mill/mm3 4.0-5.8 N HEMOGLOBIN (test code = HGB) 11.4 gram/dL 13.0-17.5 L HEMATOCRIT (test code = HCT) 36.2 % 42.0-52.0 L MEAN CELL VOLUME (test code = MCV) 89.6 fL 80-98 N MEAN CELL HGB (test code = MCH) 28.2 picogram 27.0-33.0 N MEAN CELL HGB CONCETRATION (test code = MCHC) 31.5 gram/dL 33.0-36. 0 L RED CELL DISTRIBUTION WIDTH (test code = RDW) 12.8 % 11.6-16. 2 N RED CELL DISTRIBUTION WIDTH SD (test code = RDW-SD) 42.1 fL 37 .0-51.0 N PLATELET COUNT (test code = PLT) 187 K/mm3 150-450 N MEAN PLATELET VOLUME (test code = MPV) 10.7 fL 6.7-11.0 N NEUTROPHIL % (test code = NT%) 64.1 % 39.0-69.0 N IMMATURE GRANULOCYTE % (test code = IG%) 0.3 % 0.0-5.0 N LYMPHOCYTE % (test code = LY%) 16.8 % 25.0-55.0 L MONOCYTE % (test code = MO%) 17.2 % 0.0-10.0 H EOSINOPHIL % (test code = EO%) 1.2 % 0.0-5.0 N BASOPHIL % (test code = BA%) 0.4 % 0.0-1.0 N NUCLEATED RBC % (test code = NRBC%) 0.0 % 0-0 N NEUTROPHIL # (test code = NT#) 4.95 K/mm3 1.8-7.7 N IMMATURE GRANULOCYTE # (test code = IG#) 0.02 x10 3/uL 0-0.03 N LYMPHOCYTE # (test code = LY#) 1.30 K/mm3 1.0-5.0 N MONOCYTE # (test code = MO#) 1.33 K/mm3 0-0.8 H EOSINOPHIL # (test code = EO#) 0.09 K/mm3 0.0-0.5 N BASOPHIL # (test code = BA#) 0.03 K/mm3 0.0-0.2 N NUCLEATED RBC # (test code = NRBC#) 0.00 K/mm3 0.0-0.1 N [id number] 20:43:00* Test Item Value Reference Range Interpretation Comments GLUBED (test code = GLUBED) 122 mg/dL 74-106 H Performed by certified ground transportation operator at [facility] [id number] 17:15:00* Test Item Value Reference Range Interpretation Comments GLUBED (test code = GLUBED) 145 mg/dL 74-106 H Performed by certified ground transportation operator at [facility] [id number] 11:46:00* Test Item Value Reference Range Interpretation Comments GLUBED (test code = GLUBED) 228 mg/dL 74-106 H Performed by certified ground transportation operator at [facility] [id number] 07:49:00* Test Item Value Reference Range Interpretation Comments GLUBED (test code = GLUBED) 123 mg/dL 74-106 H Performed by certified ground transportation operator at [facility] COMPREHENSIVE METABOLIC [id number] 07:19:00* Test Item Value Reference Range Interpretation Comments SODIUM (test code = NA) 140 mmol/L 136-145 N POTASSIUM (test code = K) 2.9 mmol/L 3.5-5.1 L Re sults called to [place] [id number] by [email or web address] 05/15/18 0716Critical results verified and read back by Nurse? Y CHLORIDE (test code = CL) 102.0 mmol/L 98-107 N CARBON DIOXIDE (test code = CO2) 28.0 mmol/L 21-32 N ANION GAP (test code = GAP) 12.9 10-20 N GLUCOSE (test code = GLU) 109 mg/dL 74-106 H BLOOD UREA NITROGEN (test code = BUN) 11 mg/dL 7-18 N GLOMERULAR FILTRATION RATE (test code = GFR) > 60 mL/min >=60 Estimated GFR by using Modified MDRD formula.Chronic kidney disease is defined as either kidney damageor GFR <60 mL/min/1.73 m2 for >3 months. CREATININE (test code = CREAT) 0.70 mg/dL 0.7-1.3 N BUN/CREATININE RATIO (test code = BUN/CREA) 15.5 10-20 N TOTAL PROTEIN (test code = PROT) 6.3 gram/dL 6.4-8.2 L ALBUMIN (test code = ALB) 3.1 g/dL 3.4-5.0 L GLOBULIN (test code = GLOB) 3.2 gram/dL 2.7-4.2 N ALBUMIN/GLOBULIN RATIO (test code = A/G) 1.0 0.75-1.50 N CALCIUM (test code = CA) 7.9 mg/dL 8.5-10.1 L BILIRUBIN TOTAL (test code = BILT) 0.60 mg/dL 0.0-1.0 N SGOT/AST (test code = AST) 12 IUnit/L 15-37 L SGPT/ALT (test code = ALT) 12 IUnit/L 12-78 N ALKALINE PHOSPHATASE TOTAL (test code = ALKP) 74 IUnit/L 45-117 N Note change in reference range due to change in reagent. CBC W/AUTO [id number] 06:20:00* Test Item Value Reference Range Interpretation Comments WHITE BLOOD CELL (test code = WBC) 10.1 K/mm3 4.5-12.5 N RED BLOOD CELL (test code = RBC) 4.18 mill/mm3 4.0-5.8 N HEMOGLOBIN (test code = HGB) 11.7 gram/dL 13.0-17.5 L HEMATOCRIT (test code = HCT) 37.5 % 42.0-52.0 L MEAN CELL VOLUME (test code = MCV) 89.7 fL 80-98 N MEAN CELL HGB (test code = MCH) 28.0 picogram 27.0-33.0 N MEAN CELL HGB CONCETRATION (test code = MCHC) 31.2 gram/dL 33.0-36. 0 L RED CELL DISTRIBUTION WIDTH (test code = RDW) 13.1 % 11.6-16. 2 N RED CELL DISTRIBUTION WIDTH SD (test code = RDW-SD) 43.0 fL 37 .0-51.0 N PLATELET COUNT (test code = PLT) 192 K/mm3 150-450 N MEAN PLATELET VOLUME (test code = MPV) 11.0 fL 6.7-11.0 N NEUTROPHIL % (test code = NT%) 69.3 % 39.0-69.0 H IMMATURE GRANULOCYTE % (test code = IG%) 0.4 % 0.0-5.0 N LYMPHOCYTE % (test code = LY%) 14.4 % 25.0-55.0 L MONOCYTE % (test code = MO%) 15.4 % 0.0-10.0 H EOSINOPHIL % (test code = EO%) 0.1 % 0.0-5.0 N BASOPHIL % (test code = BA%) 0.4 % 0.0-1.0 N NUCLEATED RBC % (test code = NRBC%) 0.0 % 0-0 N NEUTROPHIL # (test code = NT#) 6.99 K/mm3 1.8-7.7 N IMMATURE GRANULOCYTE # (test code = IG#) 0.04 x10 3/uL 0-0.03 H LYMPHOCYTE # (test code = LY#) 1.45 K/mm3 1.0-5.0 N MONOCYTE # (test code = MO#) 1.55 K/mm3 0-0.8 H EOSINOPHIL # (test code = EO#) 0.01 K/mm3 0.0-0.5 N BASOPHIL # (test code = BA#) 0.04 K/mm3 0.0-0.2 N NUCLEATED RBC # (test code = NRBC#) 0.00 K/mm3 0.0-0.1 N [id number] 21:14:00* Test Item Value Reference Range Interpretation Comments GLUBED (test code = GLUBED) 152 mg/dL 74-106 H Performed by certified ground transportation operator at [facility] [id number] 17:16:00* Test Item Value Reference Range Interpretation Comments GLUBED (test code = GLUBED) 140 mg/dL 74-106 H Performed by certified ground transportation operator at [facility] [id number] 11:55:00* Test Item Value Reference Range Interpretation Comments GLUBED (test code = GLUBED) 236 mg/dL 74-106 H Performed by certified ground transportation operator at [facility] COMPREHENSIVE METABOLIC [id number] 08:50:00* Test Item Value Reference Range Interpretation Comments SODIUM (test code = NA) 142 mmol/L 136-145 N POTASSIUM (test code = K) 3.4 mmol/L 3.5-5.1 L CHLORIDE (test code = CL) 107.0 mmol/L 98-107 N CARBON DIOXIDE (test code = CO2) 25.0 mmol/L 21-32 N ANION GAP (test code = GAP) 13.4 10-20 N GLUCOSE (test code = GLU) 195 mg/dL 74-106 H BLOOD UREA NITROGEN (test code = BUN) 16 mg/dL 7-18 N GLOMERULAR FILTRATION RATE (test code = GFR) > 60 mL/min >=60 Estimated GFR by using Modified MDRD formula.Chronic kidney disease is defined as either kidney damageor GFR <60 mL/min/1.73 m2 for >3 months. CREATININE (test code = CREAT) 0.80 mg/dL 0.7-1.3 N BUN/CREATININE RATIO (test code = BUN/CREA) 18.9 10-20 N TOTAL PROTEIN (test code = PROT) 6.5 gram/dL 6.4-8.2 N ALBUMIN (test code = ALB) 3.2 g/dL 3.4-5.0 L GLOBULIN (test code = GLOB) 3.3 gram/dL 2.7-4.2 N ALBUMIN/GLOBULIN RATIO (test code = A/G) 1.0 0.75-1.50 N CALCIUM (test code = CA) 8.2 mg/dL 8.5-10.1 L BILIRUBIN TOTAL (test code = BILT) 0.60 mg/dL 0.0-1.0 N SGOT/AST (test code = AST) 10 IUnit/L 15-37 L SGPT/ALT (test code = ALT) 14 IUnit/L 12-78 N ALKALINE PHOSPHATASE TOTAL (test code = ALKP) 80 IUnit/L 45-117 N Note change in reference range due to change in reagent. COMPREHENSIVE METABOLIC [id number] 08:38:00* Test Item Value Reference Range Interpretation Comments SODIUM (test code = NA) 142 mmol/L 136-145 N POTASSIUM (test code = K) 3.4 mmol/L 3.5-5.1 L CHLORIDE (test code = CL) 107.0 mmol/L 98-107 N CARBON DIOXIDE (test code = CO2) mmol/L 21-32 ANION GAP (test code = GAP) 10-20 GLUCOSE (test code = GLU) mg/dL 74-106 BLOOD UREA NITROGEN (test code = BUN) mg/dL 7-18 GLOMERULAR FILTRATION RATE (test code = GFR) mL/min >=60 CREATININE (test code = CREAT) mg/dL 0.7-1.3 BUN/CREATININE RATIO (test code = BUN/CREA) 10-20 TOTAL PROTEIN (test code = PROT) gram/dL 6.4-8.2 ALBUMIN (test code = ALB) g/dL 3.4-5.0 GLOBULIN (test code = GLOB) gram/dL 2.7-4.2 ALBUMIN/GLOBULIN RATIO (test code = A/G) 0.75-1.50 CALCIUM (test code = CA) mg/dL 8.5-10.1 BILIRUBIN TOTAL (test code = BILT) mg/dL 0.0-1.0 SGOT/AST (test code = AST) IUnit/L 15-37 SGPT/ALT (test code = ALT) IUnit/L 12-78 ALKALINE PHOSPHATASE TOTAL (test code = ALKP) IUnit/L 45-117 CBC W/AUTO [id number] 08:00:00* Test Item Value Reference Range Interpretation Comments WHITE BLOOD CELL (test code = WBC) 13.1 K/mm3 4.5-12.5 H RED BLOOD CELL (test code = RBC) 4.03 mill/mm3 4.0-5.8 N HEMOGLOBIN (test code = HGB) 11.4 gram/dL 13.0-17.5 L HEMATOCRIT (test code = HCT) 36.0 % 42.0-52.0 L MEAN CELL VOLUME (test code = MCV) 89.3 fL 80-98 N MEAN CELL HGB (test code = MCH) 28.3 picogram 27.0-33.0 N MEAN CELL HGB CONCETRATION (test code = MCHC) 31.7 gram/dL 33.0-36. 0 L RED CELL DISTRIBUTION WIDTH (test code = RDW) 13.6 % 11.6-16. 2 N RED CELL DISTRIBUTION WIDTH SD (test code = RDW-SD) 44.4 fL 37 .0-51.0 N PLATELET COUNT (test code = PLT) 181 K/mm3 150-450 N MEAN PLATELET VOLUME (test code = MPV) 10.9 fL 6.7-11.0 N NEUTROPHIL % (test code = NT%) 79.9 % 39.0-69.0 H IMMATURE GRANULOCYTE % (test code = IG%) 0.5 % 0.0-5.0 N LYMPHOCYTE % (test code = LY%) 9.0 % 25.0-55.0 L MONOCYTE % (test code = MO%) 10.3 % 0.0-10.0 H EOSINOPHIL % (test code = EO%) 0.0 % 0.0-5.0 N BASOPHIL % (test code = BA%) 0.3 % 0.0-1.0 N NUCLEATED RBC % (test code = NRBC%) 0.0 % 0-0 N NEUTROPHIL # (test code = NT#) 10.44 K/mm3 1.8-7.7 H IMMATURE GRANULOCYTE # (test code = IG#) 0.07 x10 3/uL 0-0.03 H LYMPHOCYTE # (test code = LY#) 1.18 K/mm3 1.0-5.0 N MONOCYTE # (test code = MO#) 1.35 K/mm3 0-0.8 H EOSINOPHIL # (test code = EO#) 0.00 K/mm3 0.0-0.5 N BASOPHIL # (test code = BA#) 0.04 K/mm3 0.0-0.2 N NUCLEATED RBC # (test code = NRBC#) 0.00 K/mm3 0.0-0.1 N MANUAL DIFF REQUIRED (test code = MDIFF) NO [id number] 07:51:00* Test Item Value Reference Range Interpretation Comments GLUBED (test code = GLUBED) 210 mg/dL 74-106 H Performed by certified ground transportation operator at [facility] [id number] 20:06:00* Test Item Value Reference Range Interpretation Comments GLUBED (test code = GLUBED) 278 mg/dL 74-106 H Performed by certified ground transportation operator at [facility] [id number] 16:53:00* Test Item Value Reference Range Interpretation Comments GLUBED (test code = GLUBED) 236 mg/dL 74-106 H Performed by certified ground transportation operator at [facility] [id number] 11:31:00* Test Item Value Reference Range Interpretation Comments GLUBED (test code = GLUBED) 269 mg/dL 74-106 H Performed by certified ground transportation operator at [facility] [id number] 10:39:00* Test Item Value Reference Range Interpretation Comments GLUBED (test code = GLUBED) 298 mg/dL 74-106 H Performed by certified ground transportation operator at [facility] COMPREHENSIVE METABOLIC [id number] 06:29:00* Test Item Value Reference Range Interpretation Comments SODIUM (test code = NA) 141 mmol/L 136-145 N POTASSIUM (test code = K) 3.4 mmol/L 3.5-5.1 L CHLORIDE (test code = CL) 105.0 mmol/L 98-107 N CARBON DIOXIDE (test code = CO2) 22.0 mmol/L 21-32 N ANION GAP (test code = GAP) 17.4 10-20 N GLUCOSE (test code = GLU) 285 mg/dL 74-106 H BLOOD UREA NITROGEN (test code = BUN) 15 mg/dL 7-18 N GLOMERULAR FILTRATION RATE (test code = GFR) > 60 mL/min >=60 Estimated GFR by using Modified MDRD formula.Chronic kidney disease is defined as either kidney damageor GFR <60 mL/min/1.73 m2 for >3 months. CREATININE (test code = CREAT) 0.90 mg/dL 0.7-1.3 N BUN/CREATININE RATIO (test code = BUN/CREA) 16.1 10-20 N TOTAL PROTEIN (test code = PROT) 7.1 gram/dL 6.4-8.2 N ALBUMIN (test code = ALB) 3.7 g/dL 3.4-5.0 N GLOBULIN (test code = GLOB) 3.4 gram/dL 2.7-4.2 N ALBUMIN/GLOBULIN RATIO (test code = A/G) 1.1 0.75-1.50 N CALCIUM (test code = CA) 8.4 mg/dL 8.5-10.1 L BILIRUBIN TOTAL (test code = BILT) 0.60 mg/dL 0.0-1.0 N SGOT/AST (test code = AST) 16 IUnit/L 15-37 N SGPT/ALT (test code = ALT) 16 IUnit/L 12-78 N ALKALINE PHOSPHATASE TOTAL (test code = ALKP) 92 IUnit/L 45-117 N Note change in reference range due to change in reagent. COMPREHENSIVE METABOLIC [id number] 06:10:00* Test Item Value Reference Range Interpretation Comments SODIUM (test code = NA) 141 mmol/L 136-145 N POTASSIUM (test code = K) 3.4 mmol/L 3.5-5.1 L CHLORIDE (test code = CL) 105.0 mmol/L 98-107 N CARBON DIOXIDE (test code = CO2) mmol/L 21-32 ANION GAP (test code = GAP) 10-20 GLUCOSE (test code = GLU) mg/dL 74-106 BLOOD UREA NITROGEN (test code = BUN) mg/dL 7-18 GLOMERULAR FILTRATION RATE (test code = GFR) mL/min >=60 CREATININE (test code = CREAT) mg/dL 0.7-1.3 BUN/CREATININE RATIO (test code = BUN/CREA) 10-20 TOTAL PROTEIN (test code = PROT) gram/dL 6.4-8.2 ALBUMIN (test code = ALB) g/dL 3.4-5.0 GLOBULIN (test code = GLOB) gram/dL 2.7-4.2 ALBUMIN/GLOBULIN RATIO (test code = A/G) 0.75-1.50 CALCIUM (test code = CA) mg/dL 8.5-10.1 BILIRUBIN TOTAL (test code = BILT) mg/dL 0.0-1.0 SGOT/AST (test code = AST) IUnit/L 15-37 SGPT/ALT (test code = ALT) IUnit/L 12-78 ALKALINE PHOSPHATASE TOTAL (test code = ALKP) IUnit/L 45-117 CBC W/AUTO [id number] 05:48:00* Test Item Value Reference Range Interpretation Comments WHITE BLOOD CELL (test code = WBC) 14.8 K/mm3 4.5-12.5 H RED BLOOD CELL (test code = RBC) 4.04 mill/mm3 4.0-5.8 N HEMOGLOBIN (test code = HGB) 11.4 gram/dL 13.0-17.5 L HEMATOCRIT (test code = HCT) 36.5 % 42.0-52.0 L MEAN CELL VOLUME (test code = MCV) 90.3 fL 80-98 N MEAN CELL HGB (test code = MCH) 28.2 picogram 27.0-33.0 N MEAN CELL HGB CONCETRATION (test code = MCHC) 31.2 gram/dL 33.0-36. 0 L RED CELL DISTRIBUTION WIDTH (test code = RDW) 13.6 % 11.6-16. 2 N RED CELL DISTRIBUTION WIDTH SD (test code = RDW-SD) 45.2 fL 37 .0-51.0 N PLATELET COUNT (test code = PLT) 181 K/mm3 150-450 N MEAN PLATELET VOLUME (test code = MPV) 11.2 fL 6.7-11.0 H NEUTROPHIL % (test code = NT%) 87.1 % 39.0-69.0 H IMMATURE GRANULOCYTE % (test code = IG%) 0.6 % 0.0-5.0 N LYMPHOCYTE % (test code = LY%) 5.3 % 25.0-55.0 L MONOCYTE % (test code = MO%) 6.7 % 0.0-10.0 N EOSINOPHIL % (test code = EO%) 0.0 % 0.0-5.0 N BASOPHIL % (test code = BA%) 0.3 % 0.0-1.0 N NUCLEATED RBC % (test code = NRBC%) 0.0 % 0-0 N NEUTROPHIL # (test code = NT#) 12.89 K/mm3 1.8-7.7 H IMMATURE GRANULOCYTE # (test code = IG#) 0.09 x10 3/uL 0-0.03 H LYMPHOCYTE # (test code = LY#) 0.79 K/mm3 1.0-5.0 L MONOCYTE # (test code = MO#) 1.00 K/mm3 0-0.8 H EOSINOPHIL # (test code = EO#) 0.00 K/mm3 0.0-0.5 N BASOPHIL # (test code = BA#) 0.05 K/mm3 0.0-0.2 N NUCLEATED RBC # (test code = NRBC#) 0.00 K/mm3 0.0-0.1 N MANUAL DIFF REQUIRED (test code = MDIFF) NO [id number] 20:52:00* Test Item Value Reference Range Interpretation Comments GLUBED (test code = GLUBED) 238 mg/dL 74-106 H Performed by certified ground transportation operator at [facility] [id number] 15:54:00* Test Item Value Reference Range Interpretation Comments GLUBED (test code = GLUBED) 199 mg/dL 74-106 H Performed by certified ground transportation operator at [facility] [id number] 11:51:00* Test Item Value Reference Range Interpretation Comments GLUBED (test code = GLUBED) 265 mg/dL 74-106 H Performed by certified ground transportation operator at [facility] [id number] 08:20:00* Test Item Value Reference Range Interpretation Comments GLYCOSYLATED HEMOGLOBIN (HA1C) (test code = GLYHGB) 10.6 % HbA1 4. 8-6.0 H ESTIMATED AVERAGE GLUCOSE (test code = EAG) 258 MG/DL COMPREHENSIVE METABOLIC [id number] 08:11:00* Test Item Value Reference Range Interpretation Comments SODIUM (test code = NA) 139 mmol/L 136-145 N POTASSIUM (test code = K) 4.0 mmol/L 3.5-5.1 N CHLORIDE (test code = CL) 102.0 mmol/L 98-107 N CARBON DIOXIDE (test code = CO2) 24.0 mmol/L 21-32 N ANION GAP (test code = GAP) 17.0 10-20 N GLUCOSE (test code = GLU) 354 mg/dL 74-106 H BLOOD UREA NITROGEN (test code = BUN) 14 mg/dL 7-18 N GLOMERULAR FILTRATION RATE (test code = GFR) > 60 mL/min >=60 Estimated GFR by using Modified MDRD formula.Chronic kidney disease is defined as either kidney damageor GFR <60 mL/min/1.73 m2 for >3 months. CREATININE (test code = CREAT) 1.10 mg/dL 0.7-1.3 N BUN/CREATININE RATIO (test code = BUN/CREA) 12.6 10-20 N TOTAL PROTEIN (test code = PROT) 7.4 gram/dL 6.4-8.2 N ALBUMIN (test code = ALB) 3.8 g/dL 3.4-5.0 N GLOBULIN (test code = GLOB) 3.6 gram/dL 2.7-4.2 N ALBUMIN/GLOBULIN RATIO (test code = A/G) 1.1 0.75-1.50 N CALCIUM (test code = CA) 8.4 mg/dL 8.5-10.1 L BILIRUBIN TOTAL (test code = BILT) 0.70 mg/dL 0.0-1.0 N SGOT/AST (test code = AST) 20 IUnit/L 15-37 N SGPT/ALT (test code = ALT) 18 IUnit/L 12-78 N ALKALINE PHOSPHATASE TOTAL (test code = ALKP) 96 IUnit/L 45-117 N Note change in reference range due to change in reagent. LIPID PROFILE (CORONARY RISK)2018-05-12 08:11:00* Test Item Value Reference Range Interpretation Comments TRIGLYCERIDES (test code = TRIG) 73 mg/dL 20-150 N CHOLESTEROL (test code = CHOL) 134 mg/dL 0-200 N CHOLESTEROL/HDL RATIO (test code = CHOLHDL) 3.0 RATIO 0-4.9 N RISK ASSOCIATED WITH CHOL/HDL RATIOS: Risk Male Female1/2 AVERAGE 3.43 3.27AVERAGE 4.97 4.442X AVERAGE 9.55 7.053X AVERAGE 23.39 11.04 REFERENCE VALUE IS RELATED TO RISK LEVELS ASRECOMMENDED BY THE [facility]. HEART, LUNG, AND BLOOD INST. HDL CHOLESTEROL (test code = HDL) 38 mg/dL 40-60 L LIPOPROTEIN LDL (test code = LDL) 92 mg/dL 100-129 L Reference Interval: mg/dL mmol/L Optimal <100 <2.6Near/above optimal 100-129 2.6- 3.3Borderline High 130-159 3.4-4.1High 160-189 4.1-4.9Very High >=190 >=4.9========= This LDL result is a direct measurement.========= THYROID STIMULATING [id number] 08:11:00* Test Item Value Reference Range Interpretation Comments THYROID STIMULATING HORMONE (test code = TSH) 1.020 uIU/mL 0.36-3.7 4 N TSH REFERENCE RANGES: EUTHYROID: 0.35 - 4.3 mIU/mL HYPO : > 5.5 mIU/mL HYPER : < 0.35 mIU/mL COMPREHENSIVE METABOLIC [id number] 07:53:00* Test Item Value Reference Range Interpretation Comments SODIUM (test code = NA) 139 mmol/L 136-145 N POTASSIUM (test code = K) 4.0 mmol/L 3.5-5.1 N CHLORIDE (test code = CL) 102.0 mmol/L 98-107 N CARBON DIOXIDE (test code = CO2) mmol/L 21-32 ANION GAP (test code = GAP) 10-20 GLUCOSE (test code = GLU) mg/dL 74-106 BLOOD UREA NITROGEN (test code = BUN) mg/dL 7-18 GLOMERULAR FILTRATION RATE (test code = GFR) mL/min >=60 CREATININE (test code = CREAT) mg/dL 0.7-1.3 BUN/CREATININE RATIO (test code = BUN/CREA) 10-20 TOTAL PROTEIN (test code = PROT) gram/dL 6.4-8.2 ALBUMIN (test code = ALB) g/dL 3.4-5.0 GLOBULIN (test code = GLOB) gram/dL 2.7-4.2 ALBUMIN/GLOBULIN RATIO (test code = A/G) 0.75-1.50 CALCIUM (test code = CA) mg/dL 8.5-10.1 BILIRUBIN TOTAL (test code = BILT) mg/dL 0.0-1.0 SGOT/AST (test code = AST) IUnit/L 15-37 SGPT/ALT (test code = ALT) IUnit/L 12-78 ALKALINE PHOSPHATASE TOTAL (test code = ALKP) IUnit/L 45-117 LIPID PROFILE (CORONARY RISK)2018-05-12 07:53:00* Test Item Value Reference Range Interpretation Comments TRIGLYCERIDES (test code = TRIG) mg/dL 20-150 CHOLESTEROL (test code = CHOL) mg/dL 0-200 CHOLESTEROL/HDL RATIO (test code = CHOLHDL) RATIO 0-4.9 HDL CHOLESTEROL (test code = HDL) mg/dL 40-60 LIPOPROTEIN LDL (test code = LDL) mg/dL 100-129 THYROID STIMULATING [id number] 07:53:00* Test Item Value Reference Range Interpretation Comments THYROID STIMULATING HORMONE (test code = TSH) uIU/mL 0.36-3.7 4 CBC W/AUTO [id number] 07:51:00* Test Item Value Reference Range Interpretation Comments WHITE BLOOD CELL (test code = WBC) 12.2 K/mm3 4.5-12.5 N RED BLOOD CELL (test code = RBC) 4.13 mill/mm3 4.0-5.8 N HEMOGLOBIN (test code = HGB) 11.6 gram/dL 13.0-17.5 L HEMATOCRIT (test code = HCT) 38.2 % 42.0-52.0 L MEAN CELL VOLUME (test code = MCV) 92.5 fL 80-98 N MEAN CELL HGB (test code = MCH) 28.1 picogram 27.0-33.0 N MEAN CELL HGB CONCETRATION (test code = MCHC) 30.4 gram/dL 33.0-36. 0 L RED CELL DISTRIBUTION WIDTH (test code = RDW) 13.4 % 11.6-16. 2 N RED CELL DISTRIBUTION WIDTH SD (test code = RDW-SD) 45.9 fL 37 .0-51.0 N PLATELET COUNT (test code = PLT) 201 K/mm3 150-450 N MEAN PLATELET VOLUME (test code = MPV) 11.2 fL 6.7-11.0 H NEUTROPHIL % (test code = NT%) 88.3 % 39.0-69.0 H IMMATURE GRANULOCYTE % (test code = IG%) 0.5 % 0.0-5.0 N LYMPHOCYTE % (test code = LY%) 5.7 % 25.0-55.0 L MONOCYTE % (test code = MO%) 5.3 % 0.0-10.0 N EOSINOPHIL % (test code = EO%) 0.0 % 0.0-5.0 N BASOPHIL % (test code = BA%) 0.2 % 0.0-1.0 N NUCLEATED RBC % (test code = NRBC%) 0.0 % 0-0 N NEUTROPHIL # (test code = NT#) 10.72 K/mm3 1.8-7.7 H IMMATURE GRANULOCYTE # (test code = IG#) 0.06 x10 3/uL 0-0.03 H LYMPHOCYTE # (test code = LY#) 0.69 K/mm3 1.0-5.0 L MONOCYTE # (test code = MO#) 0.65 K/mm3 0-0.8 N EOSINOPHIL # (test code = EO#) 0.00 K/mm3 0.0-0.5 N BASOPHIL # (test code = BA#) 0.03 K/mm3 0.0-0.2 N NUCLEATED RBC # (test code = NRBC#) 0.00 K/mm3 0.0-0.1 N MANUAL DIFF REQUIRED (test code = MDIFF) NO [id number] 07:10:00* Test Item Value Reference Range Interpretation Comments GLUBED (test code = GLUBED) 350 mg/dL 74-106 H Performed by certified ground transportation operator at [facility] DRUGS OF ABUSE SCREEN [id number] 06:10:00* Test Item Value Reference Range Interpretation Comments UA PH DIPSTICK (test code = JOHN) 7.0 5.0-8.0 URN COCAINE (test code = COCAURN) NEGATIVE <300 ng/mL URN CANNABINOIDS (test code = CANNABURN) POSITIVE <50 ng/mL A This test provides only a preliminary test [...] (e.g., employment testing, legaltesting). URN AMPHETAMINE (test code = AMPHETURN) NEGATIVE <1000 ng/mL URN BARBITURATE (test code = BARBITURN) NEGATIVE <200 ng/mL URN BENZODIAZEPINE (test code = BENZOURN) NEGATIVE <200 ng/mL URN OPIATES (test code = OPIATURN) POSITIVE <300 ng/mL A This test provides only a preliminary test [...] employment testing, legaltesting). URN PHENCYCLIDINE (PCP) (test code = PHENCURN) NEGATIVE <25 ng/ mL URN METHADONE (test code = METHAURN) NEGATIVE <300 ng/mL URINALYSIS [id number] 05:29:00* Test Item Value Reference Range Interpretation Comments UA COLOR (test code = COLU) YELLOW YELLOW UA APPEARANCE (test code = APPU) CLEAR CLEAR UA GLUCOSE DIPSTICK (test code = DGLUU) >=500 mg/dL NEGATIVE A UA BILIRUBIN DIPSTICK (test code = BILU) NEGATIVE mg/dL NEGATIVE UA KETONE DIPSTICK (test code = KETU) 80 mg/dL NEGATIVE A UA SPECIFIC GRAVITY (test code = SGU) 1.022 1.001-1.035 UA BLOOD DIPSTICK (test code = JOANNE) Negative NEGATIVE UA PH DIPSTICK (test code = JOHN) 6.0 5.0-8.0 UA PROTEIN DIPSTICK (test code = PROU) Negative mg/dL NEGATIVE UA UROBILINIOGEN DIPSTICK (test code = URO) NEGATIVE mg/dL NEGATIVE UA NITRITE DIPSTICK (test code = JOHNSON) NEGATIVE NEGATIVE UA LEUKOCYTE ESTERASE W REFLEX (test code = LEUUR) TRACE NEG ATIVE A UA WBC (test code = WBCU) 11-20 #/HPF 0-5 A UA RBC (test code = RBCU) 0-2 #/HPF 0-5 UA EPITHELIAL CELLS (test code = EPIU) FEW per HPF FEW UA HYALINE CAST (test code = HYALU) 0-2 #/LPF 0-5 UA MUCUS (test code = MUCU) FEW #/LPF FEW Urine Source? Clean CatchDRUGS OF ABUSE SCREEN [id number] 05:12:00* Test Item Value Reference Range Interpretation Comments UA PH DIPSTICK (test code = JOHN) 7.0 5.0-8.0 URN COCAINE (test code = COCAURN) <300 ng/mL URN CANNABINOIDS (test code = CANNABURN) <50 ng/mL URN AMPHETAMINE (test code = AMPHETURN) <1000 ng/mL URN BARBITURATE (test code = BARBITURN) <200 ng/mL URN BENZODIAZEPINE (test code = BENZOURN) <200 ng/mL URN OPIATES (test code = OPIATURN) <300 ng/mL URN PHENCYCLIDINE (PCP) (test code = PHENCURN) <25 ng/ mL URN METHADONE (test code = METHAURN) <300 ng/mL [id number] 20:26:00* Test Item Value Reference Range Interpretation Comments GLUBED (test code = GLUBED) 285 mg/dL 74-106 H Performed by certified ground transportation operator at [facility] [id number] 13:32:00* Test Item Value Reference Range Interpretation Comments GLUBED (test code = GLUBED) 159 mg/dL 74-106 H Performed by certified ground transportation operator at [facility] BASIC METABOLIC [id number] 09:38:00* Test Item Value Reference Range Interpretation Comments SODIUM (test code = NA) 139 mmol/L 136-145 N POTASSIUM (test code = K) 4.2 mmol/L 3.5-5.1 N CHLORIDE (test code = CL) 102.0 mmol/L 98-107 N CARBON DIOXIDE (test code = CO2) 27.0 mmol/L 21-32 N ANION GAP (test code = GAP) 14.2 10-20 N GLUCOSE (test code = GLU) 320 mg/dL 74-106 H BLOOD UREA NITROGEN (test code = BUN) 14 mg/dL 7-18 N GLOMERULAR FILTRATION RATE (test code = GFR) > 60 mL/min >=60 Estimated GFR by using Modified MDRD formula.Chronic kidney disease is defined as either kidney damageor GFR <60 mL/min/1.73 m2 for >3 months. CREATININE (test code = CREAT) 1.20 mg/dL 0.7-1.3 N BUN/CREATININE RATIO (test code = BUN/CREA) 12.0 10-20 N CALCIUM (test code = CA) 8.9 mg/dL 8.5-10.1 N HEPATIC FUNCTION [id number] 09:38:00* Test Item Value Reference Range Interpretation Comments TOTAL PROTEIN (test code = PROT) 7.8 gram/dL 6.4-8.2 N ALBUMIN (test code = ALB) 4.0 g/dL 3.4-5.0 N GLOBULIN (test code = GLOB) 3.8 gram/dL 2.7-4.2 N ALBUMIN/GLOBULIN RATIO (test code = A/G) 1.1 0.75-1.50 N BILIRUBIN TOTAL (test code = BILT) 0.40 mg/dL 0.0-1.0 N BILIRUBIN DIRECT (test code = BILD) 0.14 mg/dL 0.0-0.20 N SGOT/AST (test code = AST) 14 IUnit/L 15-37 L SGPT/ALT (test code = ALT) 19 IUnit/L 12-78 N ALKALINE PHOSPHATASE TOTAL (test code = ALKP) 105 IUnit/L 45-117 N Note change in reference range due to change in reagent. [id number] 09:38:00* Test Item Value Reference Range Interpretation Comments LIPASE (test code = LIP) 20 U/L 73.0-393.0 L BASIC METABOLIC [id number] 09:30:00* Test Item Value Reference Range Interpretation Comments SODIUM (test code = NA) 139 mmol/L 136-145 N POTASSIUM (test code = K) 4.2 mmol/L 3.5-5.1 N CHLORIDE (test code = CL) 102.0 mmol/L 98-107 N CARBON DIOXIDE (test code = CO2) mmol/L 21-32 ANION GAP (test code = GAP) 10-20 GLUCOSE (test code = GLU) mg/dL 74-106 BLOOD UREA NITROGEN (test code = BUN) mg/dL 7-18 GLOMERULAR FILTRATION RATE (test code = GFR) mL/min >=60 CREATININE (test code = CREAT) mg/dL 0.7-1.3 BUN/CREATININE RATIO (test code = BUN/CREA) 10-20 CALCIUM (test code = CA) mg/dL 8.5-10.1 HEPATIC FUNCTION [id number] 09:30:00* Test Item Value Reference Range Interpretation Comments TOTAL PROTEIN (test code = PROT) gram/dL 6.4-8.2 ALBUMIN (test code = ALB) g/dL 3.4-5.0 GLOBULIN (test code = GLOB) gram/dL 2.7-4.2 ALBUMIN/GLOBULIN RATIO (test code = A/G) 0.75-1.50 BILIRUBIN TOTAL (test code = BILT) mg/dL 0.0-1.0 BILIRUBIN DIRECT (test code = BILD) mg/dL 0.0-0.20 SGOT/AST (test code = AST) IUnit/L 15-37 SGPT/ALT (test code = ALT) IUnit/L 12-78 ALKALINE PHOSPHATASE TOTAL (test code = ALKP) IUnit/L 45-117 [id number] 09:30:00* Test Item Value Reference Range Interpretation Comments LIPASE (test code = LIP) U/L 73.0-393.0 CBC W/O [id number] 09:13:00* Test Item Value Reference Range Interpretation Comments WHITE BLOOD CELL (test code = WBC) 7.9 K/mm3 4.5-12.5 N RED BLOOD CELL (test code = RBC) 4.52 mill/mm3 4.0-5.8 N HEMOGLOBIN (test code = HGB) 12.9 gram/dL 13.0-17.5 L HEMATOCRIT (test code = HCT) 41.5 % 42.0-52.0 L MEAN CELL VOLUME (test code = MCV) 91.8 fL 80-98 N MEAN CELL HGB (test code = MCH) 28.5 picogram 27.0-33.0 N MEAN CELL HGB CONCETRATION (test code = MCHC) 31.1 gram/dL 33.0-36. 0 L RED CELL DISTRIBUTION WIDTH (test code = RDW) 13.6 % 11.6-16. 2 N PLATELET COUNT (test code = PLT) 216 K/mm3 150-450 N MEAN PLATELET VOLUME (test code = MPV) 10.6 fL 6.7-11.0 N [id number] 07:28:00* Test Item Value Reference Range Interpretation Comments GLUBED (test code = GLUBED) 173 mg/dL 74-106 H Performed by certified ground transportation operator at [facility] [id number] 20:56:00* Test Item Value Reference Range Interpretation Comments GLUBED (test code = GLUBED) 181 mg/dL 74-106 H Performed by certified ground transportation operator at [facility] [id number] 16:11:00* Test Item Value Reference Range Interpretation Comments GLUBED (test code = GLUBED) 245 mg/dL 74-106 H Performed by certified ground transportation operator at [facility] [id number] 11:55:00* Test Item Value Reference Range Interpretation Comments GLUBED (test code = GLUBED) 309 mg/dL 74-106 H Performed by certified ground transportation operator at [facility] [id number] 08:03:00* Test Item Value Reference Range Interpretation Comments GLUBED (test code = GLUBED) 241 mg/dL 74-106 H Performed by certified ground transportation operator at [facility] [id number] 00:08:00* Test Item Value Reference Range Interpretation Comments GLUBED (test code = GLUBED) 175 mg/dL 74-106 H Performed by certified ground transportation operator at [facility] [id number] 20:00:00* Test Item Value Reference Range Interpretation Comments GLUBED (test code = GLUBED) 167 mg/dL 74-106 H Performed by certified ground transportation operator at [facility] [id number] 16:45:00* Test Item Value Reference Range Interpretation Comments GLUBED (test code = GLUBED) 208 mg/dL 74-106 H Performed by certified ground transportation operator at [facility] [id number] 16:01:00* Test Item Value Reference Range Interpretation Comments GLUBED (test code = GLUBED) 47 mg/dL 74-106 LL [facility]~ [id number] 11:44:00* Test Item Value Reference Range Interpretation Comments GLUBED (test code = GLUBED) 317 mg/dL 74-106 H Performed by certified ground transportation operator at [facility] [id number] 08:20:00* Test Item Value Reference Range Interpretation Comments GLUBED (test code = GLUBED) 271 mg/dL 74-106 H Performed by certified ground transportation operator at [facility] CBC W/AUTO [id number] 05:45:00* Test Item Value Reference Range Interpretation Comments WHITE BLOOD CELL (test code = WBC) 12.7 K/mm3 4.5-12.5 H RED BLOOD CELL (test code = RBC) 4.11 mill/mm3 4.0-5.8 N HEMOGLOBIN (test code = HGB) 11.6 gram/dL 13.0-17.5 L HEMATOCRIT (test code = HCT) 39.1 % 42.0-52.0 L MEAN CELL VOLUME (test code = MCV) 95.1 fL 80-98 N MEAN CELL HGB (test code = MCH) 28.2 picogram 27.0-33.0 N MEAN CELL HGB CONCETRATION (test code = MCHC) 29.7 gram/dL 33.0-36. 0 L RED CELL DISTRIBUTION WIDTH (test code = RDW) 13.5 % 11.6-16. 2 N RED CELL DISTRIBUTION WIDTH SD (test code = RDW-SD) 47.6 fL 37 .0-51.0 N PLATELET COUNT (test code = PLT) 199 K/mm3 150-450 N MEAN PLATELET VOLUME (test code = MPV) 11.2 fL 6.7-11.0 H NEUTROPHIL % (test code = NT%) 75.6 % 39.0-69.0 H IMMATURE GRANULOCYTE % (test code = IG%) 0.3 % 0.0-5.0 N LYMPHOCYTE % (test code = LY%) 11.0 % 25.0-55.0 L MONOCYTE % (test code = MO%) 12.4 % 0.0-10.0 H EOSINOPHIL % (test code = EO%) 0.3 % 0.0-5.0 N BASOPHIL % (test code = BA%) 0.4 % 0.0-1.0 N NUCLEATED RBC % (test code = NRBC%) 0.0 % 0-0 N NEUTROPHIL # (test code = NT#) 9.57 K/mm3 1.8-7.7 H IMMATURE GRANULOCYTE # (test code = IG#) 0.04 x10 3/uL 0-0.03 H LYMPHOCYTE # (test code = LY#) 1.40 K/mm3 1.0-5.0 N MONOCYTE # (test code = MO#) 1.57 K/mm3 0-0.8 H EOSINOPHIL # (test code = EO#) 0.04 K/mm3 0.0-0.5 N BASOPHIL # (test code = BA#) 0.05 K/mm3 0.0-0.2 N NUCLEATED RBC # (test code = NRBC#) 0.00 K/mm3 0.0-0.1 N MANUAL DIFF REQUIRED (test code = MDIFF) NO, ONLY SCAN NEEDED DIFFERENTIAL [id number] 05:45:00* Test Item Value Reference Range Interpretation Comments STAIN ACCEPTABILITY (test code = STN ACCEPTABLE) STAIN ACCEPTABLE POLYCHROMASIA (test code = POLC) 1+ HYPOCHROMIA (test code = HYPO) 1+ PLATELET ESTIMATE (test code = PLTEST) ADEQUATE PLATELET MORPHOLOGY (test code = PLTMORPH) NORMAL CBC W/AUTO [id number] 05:08:00* Test Item Value Reference Range Interpretation Comments WHITE BLOOD CELL (test code = WBC) 12.7 K/mm3 4.5-12.5 H RED BLOOD CELL (test code = RBC) 4.11 mill/mm3 4.0-5.8 N HEMOGLOBIN (test code = HGB) 11.6 gram/dL 13.0-17.5 L HEMATOCRIT (test code = HCT) 39.1 % 42.0-52.0 L MEAN CELL VOLUME (test code = MCV) 95.1 fL 80-98 N MEAN CELL HGB (test code = MCH) 28.2 picogram 27.0-33.0 N MEAN CELL HGB CONCETRATION (test code = MCHC) 29.7 gram/dL 33.0-36. 0 L RED CELL DISTRIBUTION WIDTH (test code = RDW) 13.5 % 11.6-16. 2 N RED CELL DISTRIBUTION WIDTH SD (test code = RDW-SD) 47.6 fL 37 .0-51.0 N PLATELET COUNT (test code = PLT) 199 K/mm3 150-450 N MEAN PLATELET VOLUME (test code = MPV) 11.2 fL 6.7-11.0 H NEUTROPHIL % (test code = NT%) 75.6 % 39.0-69.0 H IMMATURE GRANULOCYTE % (test code = IG%) 0.3 % 0.0-5.0 N LYMPHOCYTE % (test code = LY%) 11.0 % 25.0-55.0 L MONOCYTE % (test code = MO%) 12.4 % 0.0-10.0 H EOSINOPHIL % (test code = EO%) 0.3 % 0.0-5.0 N BASOPHIL % (test code = BA%) 0.4 % 0.0-1.0 N NUCLEATED RBC % (test code = NRBC%) 0.0 % 0-0 N NEUTROPHIL # (test code = NT#) 9.57 K/mm3 1.8-7.7 H IMMATURE GRANULOCYTE # (test code = IG#) 0.04 x10 3/uL 0-0.03 H LYMPHOCYTE # (test code = LY#) 1.40 K/mm3 1.0-5.0 N MONOCYTE # (test code = MO#) 1.57 K/mm3 0-0.8 H EOSINOPHIL # (test code = EO#) 0.04 K/mm3 0.0-0.5 N BASOPHIL # (test code = BA#) 0.05 K/mm3 0.0-0.2 N NUCLEATED RBC # (test code = NRBC#) 0.00 K/mm3 0.0-0.1 N MANUAL DIFF REQUIRED (test code = MDIFF) NO, ONLY SCAN NEEDED DIFFERENTIAL [id number] 05:08:00* Test Item Value Reference Range Interpretation Comments STAIN ACCEPTABILITY (test code = STN ACCEPTABLE) CABOT RINGS (test code = CAB) MORPHOLOGY COMMENT (test code = MOC) PLATELET ESTIMATE (test code = PLTEST) PLATELET MORPHOLOGY (test code = PLTMORPH) CBC W/AUTO [id number] 05:08:00* Test Item Value Reference Range Interpretation Comments WHITE BLOOD CELL (test code = WBC) 12.7 K/mm3 4.5-12.5 H RED BLOOD CELL (test code = RBC) 4.11 mill/mm3 4.0-5.8 N HEMOGLOBIN (test code = HGB) 11.6 gram/dL 13.0-17.5 L HEMATOCRIT (test code = HCT) 39.1 % 42.0-52.0 L MEAN CELL VOLUME (test code = MCV) 95.1 fL 80-98 N MEAN CELL HGB (test code = MCH) 28.2 picogram 27.0-33.0 N MEAN CELL HGB CONCETRATION (test code = MCHC) 29.7 gram/dL 33.0-36. 0 L RED CELL DISTRIBUTION WIDTH (test code = RDW) 13.5 % 11.6-16. 2 N RED CELL DISTRIBUTION WIDTH SD (test code = RDW-SD) 47.6 fL 37 .0-51.0 N PLATELET COUNT (test code = PLT) 199 K/mm3 150-450 N MEAN PLATELET VOLUME (test code = MPV) 11.2 fL 6.7-11.0 H NEUTROPHIL % (test code = NT%) 75.6 % 39.0-69.0 H IMMATURE GRANULOCYTE % (test code = IG%) 0.3 % 0.0-5.0 N LYMPHOCYTE % (test code = LY%) 11.0 % 25.0-55.0 L MONOCYTE % (test code = MO%) 12.4 % 0.0-10.0 H EOSINOPHIL % (test code = EO%) 0.3 % 0.0-5.0 N BASOPHIL % (test code = BA%) 0.4 % 0.0-1.0 N NUCLEATED RBC % (test code = NRBC%) 0.0 % 0-0 N NEUTROPHIL # (test code = NT#) 9.57 K/mm3 1.8-7.7 H IMMATURE GRANULOCYTE # (test code = IG#) 0.04 x10 3/uL 0-0.03 H LYMPHOCYTE # (test code = LY#) 1.40 K/mm3 1.0-5.0 N MONOCYTE # (test code = MO#) 1.57 K/mm3 0-0.8 H EOSINOPHIL # (test code = EO#) 0.04 K/mm3 0.0-0.5 N BASOPHIL # (test code = BA#) 0.05 K/mm3 0.0-0.2 N NUCLEATED RBC # (test code = NRBC#) 0.00 K/mm3 0.0-0.1 N MANUAL DIFF REQUIRED (test code = MDIFF) NO, ONLY SCAN NEEDED DIFFERENTIAL [id number] 05:08:00* Test Item Value Reference Range Interpretation Comments STAIN ACCEPTABILITY (test code = STN ACCEPTABLE) MORPHOLOGY COMMENT (test code = MOC) PLATELET ESTIMATE (test code = PLTEST) PLATELET MORPHOLOGY (test code = PLTMORPH) CBC W/AUTO [id number] 05:08:00* Test Item Value Reference Range Interpretation Comments WHITE BLOOD CELL (test code = WBC) 12.7 K/mm3 4.5-12.5 H RED BLOOD CELL (test code = RBC) 4.11 mill/mm3 4.0-5.8 N HEMOGLOBIN (test code = HGB) 11.6 gram/dL 13.0-17.5 L HEMATOCRIT (test code = HCT) 39.1 % 42.0-52.0 L MEAN CELL VOLUME (test code = MCV) 95.1 fL 80-98 N MEAN CELL HGB (test code = MCH) 28.2 picogram 27.0-33.0 N MEAN CELL HGB CONCETRATION (test code = MCHC) 29.7 gram/dL 33.0-36. 0 L RED CELL DISTRIBUTION WIDTH (test code = RDW) 13.5 % 11.6-16. 2 N RED CELL DISTRIBUTION WIDTH SD (test code = RDW-SD) 47.6 fL 37 .0-51.0 N PLATELET COUNT (test code = PLT) 199 K/mm3 150-450 N MEAN PLATELET VOLUME (test code = MPV) 11.2 fL 6.7-11.0 H NEUTROPHIL % (test code = NT%) 75.6 % 39.0-69.0 H IMMATURE GRANULOCYTE % (test code = IG%) 0.3 % 0.0-5.0 N LYMPHOCYTE % (test code = LY%) 11.0 % 25.0-55.0 L MONOCYTE % (test code = MO%) 12.4 % 0.0-10.0 H EOSINOPHIL % (test code = EO%) 0.3 % 0.0-5.0 N BASOPHIL % (test code = BA%) 0.4 % 0.0-1.0 N NUCLEATED RBC % (test code = NRBC%) 0.0 % 0-0 N NEUTROPHIL # (test code = NT#) 9.57 K/mm3 1.8-7.7 H IMMATURE GRANULOCYTE # (test code = IG#) 0.04 x10 3/uL 0-0.03 H LYMPHOCYTE # (test code = LY#) 1.40 K/mm3 1.0-5.0 N MONOCYTE # (test code = MO#) 1.57 K/mm3 0-0.8 H EOSINOPHIL # (test code = EO#) 0.04 K/mm3 0.0-0.5 N BASOPHIL # (test code = BA#) 0.05 K/mm3 0.0-0.2 N NUCLEATED RBC # (test code = NRBC#) 0.00 K/mm3 0.0-0.1 N MANUAL DIFF REQUIRED (test code = MDIFF) NO, ONLY SCAN NEEDED DIFFERENTIAL [id number] 05:08:00* Test Item Value Reference Range Interpretation Comments STAIN ACCEPTABILITY (test code = STN ACCEPTABLE) MORPHOLOGY COMMENT (test code = MOC) PLATELET ESTIMATE (test code = PLTEST) PLATELET MORPHOLOGY (test code = PLTMORPH) CBC W/AUTO [id number] 05:08:00* Test Item Value Reference Range Interpretation Comments WHITE BLOOD CELL (test code = WBC) 12.7 K/mm3 4.5-12.5 H RED BLOOD CELL (test code = RBC) 4.11 mill/mm3 4.0-5.8 N HEMOGLOBIN (test code = HGB) 11.6 gram/dL 13.0-17.5 L HEMATOCRIT (test code = HCT) 39.1 % 42.0-52.0 L MEAN CELL VOLUME (test code = MCV) 95.1 fL 80-98 N MEAN CELL HGB (test code = MCH) 28.2 picogram 27.0-33.0 N MEAN CELL HGB CONCETRATION (test code = MCHC) 29.7 gram/dL 33.0-36. 0 L RED CELL DISTRIBUTION WIDTH (test code = RDW) 13.5 % 11.6-16. 2 N RED CELL DISTRIBUTION WIDTH SD (test code = RDW-SD) 47.6 fL 37 .0-51.0 N PLATELET COUNT (test code = PLT) 199 K/mm3 150-450 N MEAN PLATELET VOLUME (test code = MPV) 11.2 fL 6.7-11.0 H NEUTROPHIL % (test code = NT%) 75.6 % 39.0-69.0 H IMMATURE GRANULOCYTE % (test code = IG%) 0.3 % 0.0-5.0 N LYMPHOCYTE % (test code = LY%) 11.0 % 25.0-55.0 L MONOCYTE % (test code = MO%) 12.4 % 0.0-10.0 H EOSINOPHIL % (test code = EO%) 0.3 % 0.0-5.0 N BASOPHIL % (test code = BA%) 0.4 % 0.0-1.0 N NUCLEATED RBC % (test code = NRBC%) 0.0 % 0-0 N NEUTROPHIL # (test code = NT#) 9.57 K/mm3 1.8-7.7 H IMMATURE GRANULOCYTE # (test code = IG#) 0.04 x10 3/uL 0-0.03 H LYMPHOCYTE # (test code = LY#) 1.40 K/mm3 1.0-5.0 N MONOCYTE # (test code = MO#) 1.57 K/mm3 0-0.8 H EOSINOPHIL # (test code = EO#) 0.04 K/mm3 0.0-0.5 N BASOPHIL # (test code = BA#) 0.05 K/mm3 0.0-0.2 N NUCLEATED RBC # (test code = NRBC#) 0.00 K/mm3 0.0-0.1 N MANUAL DIFF REQUIRED (test code = MDIFF) NO, ONLY SCAN NEEDED DIFFERENTIAL [id number] 05:08:00* Test Item Value Reference Range Interpretation Comments STAIN ACCEPTABILITY (test code = STN ACCEPTABLE) CABOT RINGS (test code = CAB) MORPHOLOGY COMMENT (test code = MOC) PLATELET ESTIMATE (test code = PLTEST) PLATELET MORPHOLOGY (test code = PLTMORPH) COMPREHENSIVE METABOLIC [id number] 05:04:00* Test Item Value Reference Range Interpretation Comments SODIUM (test code = NA) 141 mmol/L 136-145 N POTASSIUM (test code = K) 4.0 mmol/L 3.5-5.1 N CHLORIDE (test code = CL) 104.0 mmol/L 98-107 N CARBON DIOXIDE (test code = CO2) 26.0 mmol/L 21-32 N ANION GAP (test code = GAP) 15.0 10-20 N GLUCOSE (test code = GLU) 236 mg/dL 74-106 H BLOOD UREA NITROGEN (test code = BUN) 14 mg/dL 7-18 N GLOMERULAR FILTRATION RATE (test code = GFR) > 60 mL/min >=60 Estimated GFR by using Modified MDRD formula.Chronic kidney disease is defined as either kidney damageor GFR <60 mL/min/1.73 m2 for >3 months. CREATININE (test code = CREAT) 1.00 mg/dL 0.7-1.3 N BUN/CREATININE RATIO (test code = BUN/CREA) 13.6 10-20 N TOTAL PROTEIN (test code = PROT) 7.2 gram/dL 6.4-8.2 N ALBUMIN (test code = ALB) 3.8 g/dL 3.4-5.0 N GLOBULIN (test code = GLOB) 3.4 gram/dL 2.7-4.2 N ALBUMIN/GLOBULIN RATIO (test code = A/G) 1.1 0.75-1.50 N CALCIUM (test code = CA) 9.0 mg/dL 8.5-10.1 N BILIRUBIN TOTAL (test code = BILT) 0.70 mg/dL 0.0-1.0 N SGOT/AST (test code = AST) 13 IUnit/L 15-37 L SGPT/ALT (test code = ALT) 18 IUnit/L 12-78 N ALKALINE PHOSPHATASE TOTAL (test code = ALKP) 92 IUnit/L 45-117 N Note change in reference range due to change in reagent. COMPREHENSIVE METABOLIC [id number] 04:54:00* Test Item Value Reference Range Interpretation Comments SODIUM (test code = NA) 141 mmol/L 136-145 N POTASSIUM (test code = K) 4.0 mmol/L 3.5-5.1 N CHLORIDE (test code = CL) 104.0 mmol/L 98-107 N CARBON DIOXIDE (test code = CO2) mmol/L 21-32 ANION GAP (test code = GAP) 10-20 GLUCOSE (test code = GLU) mg/dL 74-106 BLOOD UREA NITROGEN (test code = BUN) mg/dL 7-18 GLOMERULAR FILTRATION RATE (test code = GFR) mL/min >=60 CREATININE (test code = CREAT) mg/dL 0.7-1.3 BUN/CREATININE RATIO (test code = BUN/CREA) 10-20 TOTAL PROTEIN (test code = PROT) gram/dL 6.4-8.2 ALBUMIN (test code = ALB) g/dL 3.4-5.0 GLOBULIN (test code = GLOB) gram/dL 2.7-4.2 ALBUMIN/GLOBULIN RATIO (test code = A/G) 0.75-1.50 CALCIUM (test code = CA) mg/dL 8.5-10.1 BILIRUBIN TOTAL (test code = BILT) mg/dL 0.0-1.0 SGOT/AST (test code = AST) IUnit/L 15-37 SGPT/ALT (test code = ALT) IUnit/L 12-78 ALKALINE PHOSPHATASE TOTAL (test code = ALKP) IUnit/L 45-117 [id number] 21:00:00* Test Item Value Reference Range Interpretation Comments GLUBED (test code = GLUBED) 334 mg/dL 74-106 H Performed by certified ground transportation operator at [facility] [id number] 16:10:00* Test Item Value Reference Range Interpretation Comments GLUBED (test code = GLUBED) 102 mg/dL 74-106 N Performed by certified ground transportation operator at [facility] [id number] 15:59:00* Test Item Value Reference Range Interpretation Comments GLUBED (test code = GLUBED) 339 mg/dL 74-106 H Performed by certified ground transportation operator at [facility] URINALYSIS [id number] 09:47:00* Test Item Value Reference Range Interpretation Comments UA COLOR (test code = COLU) LIGHT YELLOW YELLOW UA APPEARANCE (test code = APPU) CLEAR CLEAR UA GLUCOSE DIPSTICK (test code = DGLUU) >=500 mg/dL NEGATIVE A UA BILIRUBIN DIPSTICK (test code = BILU) NEGATIVE mg/dL NEGATIVE UA KETONE DIPSTICK (test code = KETU) 80 mg/dL NEGATIVE A UA SPECIFIC GRAVITY (test code = SGU) 1.026 1.001-1.035 UA BLOOD DIPSTICK (test code = JOANNE) Negative NEGATIVE UA PH DIPSTICK (test code = JOHN) 5.0 5.0-8.0 UA PROTEIN DIPSTICK (test code = PROU) Negative mg/dL NEGATIVE UA UROBILINIOGEN DIPSTICK (test code = URO) NEGATIVE mg/dL NEGATIVE UA NITRITE DIPSTICK (test code = JOHNSON) NEGATIVE NEGATIVE UA LEUKOCYTE ESTERASE W REFLEX (test code = LEUUR) NEGATIVE NEG ATIVE UA WBC (test code = WBCU) 0-5 #/HPF 0-5 UA RBC (test code = RBCU) 0-2 #/HPF 0-5 Urine Source? Clean CatchURINALYSIS [id number] 09:46:00* Test Item Value Reference Range Interpretation Comments UA COLOR (test code = COLU) LIGHT YELLOW YELLOW UA APPEARANCE (test code = APPU) CLEAR CLEAR UA GLUCOSE DIPSTICK (test code = DGLUU) >=500 mg/dL NEGATIVE A UA BILIRUBIN DIPSTICK (test code = BILU) NEGATIVE mg/dL NEGATIVE UA KETONE DIPSTICK (test code = KETU) 80 mg/dL NEGATIVE A UA SPECIFIC GRAVITY (test code = SGU) 1.026 1.001-1.035 UA BLOOD DIPSTICK (test code = JOANNE) Negative NEGATIVE UA PH DIPSTICK (test code = JOHN) 5.0 5.0-8.0 UA PROTEIN DIPSTICK (test code = PROU) Negative mg/dL NEGATIVE UA UROBILINIOGEN DIPSTICK (test code = URO) NEGATIVE mg/dL NEGATIVE UA NITRITE DIPSTICK (test code = JOHNSON) NEGATIVE NEGATIVE UA LEUKOCYTE ESTERASE W REFLEX (test code = LEUUR) NEGATIVE NEG ATIVE UA WBC (test code = WBCU) per HPF 0-5 Urine Source? Clean CatchBASIC METABOLIC [id number] 04:02:00* Test Item Value Reference Range Interpretation Comments SODIUM (test code = NA) 139 mmol/L 136-145 N POTASSIUM (test code = K) 3.9 mmol/L 3.5-5.1 N CHLORIDE (test code = CL) 102.0 mmol/L 98-107 N CARBON DIOXIDE (test code = CO2) 26.0 mmol/L 21-32 N ANION GAP (test code = GAP) 14.9 10-20 N GLUCOSE (test code = GLU) 290 mg/dL 74-106 H BLOOD UREA NITROGEN (test code = BUN) 15 mg/dL 7-18 N GLOMERULAR FILTRATION RATE (test code = GFR) > 60 mL/min >=60 Estimated GFR by using Modified MDRD formula.Chronic kidney disease is defined as either kidney damageor GFR <60 mL/min/1.73 m2 for >3 months. CREATININE (test code = CREAT) 1.30 mg/dL 0.7-1.3 N BUN/CREATININE RATIO (test code = BUN/CREA) 11.6 10-20 N CALCIUM (test code = CA) 9.3 mg/dL 8.5-10.1 N HEPATIC FUNCTION [id number] 04:02:00* Test Item Value Reference Range Interpretation Comments TOTAL PROTEIN (test code = PROT) 8.3 gram/dL 6.4-8.2 H ALBUMIN (test code = ALB) 4.2 g/dL 3.4-5.0 N GLOBULIN (test code = GLOB) 4.1 gram/dL 2.7-4.2 N ALBUMIN/GLOBULIN RATIO (test code = A/G) 1.0 0.75-1.50 N BILIRUBIN TOTAL (test code = BILT) 0.70 mg/dL 0.0-1.0 N BILIRUBIN DIRECT (test code = BILD) 0.17 mg/dL 0.0-0.20 N SGOT/AST (test code = AST) 16 IUnit/L 15-37 N SGPT/ALT (test code = ALT) 19 IUnit/L 12-78 N ALKALINE PHOSPHATASE TOTAL (test code = ALKP) 108 IUnit/L 45-117 N Note change in reference range due to change in reagent. [id number] 04:02:00* Test Item Value Reference Range Interpretation Comments LIPASE (test code = LIP) 22 U/L 73.0-393.0 L BASIC METABOLIC [id number] 03:53:00* Test Item Value Reference Range Interpretation Comments SODIUM (test code = NA) 139 mmol/L 136-145 N POTASSIUM (test code = K) 3.9 mmol/L 3.5-5.1 N CHLORIDE (test code = CL) 102.0 mmol/L 98-107 N CARBON DIOXIDE (test code = CO2) mmol/L 21-32 ANION GAP (test code = GAP) 10-20 GLUCOSE (test code = GLU) mg/dL 74-106 BLOOD UREA NITROGEN (test code = BUN) mg/dL 7-18 GLOMERULAR FILTRATION RATE (test code = GFR) mL/min >=60 CREATININE (test code = CREAT) mg/dL 0.7-1.3 BUN/CREATININE RATIO (test code = BUN/CREA) 10-20 CALCIUM (test code = CA) mg/dL 8.5-10.1 HEPATIC FUNCTION [id number] 03:53:00* Test Item Value Reference Range Interpretation Comments TOTAL PROTEIN (test code = PROT) gram/dL 6.4-8.2 ALBUMIN (test code = ALB) g/dL 3.4-5.0 GLOBULIN (test code = GLOB) gram/dL 2.7-4.2 ALBUMIN/GLOBULIN RATIO (test code = A/G) 0.75-1.50 BILIRUBIN TOTAL (test code = BILT) mg/dL 0.0-1.0 BILIRUBIN DIRECT (test code = BILD) mg/dL 0.0-0.20 SGOT/AST (test code = AST) IUnit/L 15-37 SGPT/ALT (test code = ALT) IUnit/L 12-78 ALKALINE PHOSPHATASE TOTAL (test code = ALKP) IUnit/L 45-117 [id number] 03:53:00* Test Item Value Reference Range Interpretation Comments LIPASE (test code = LIP) U/L 73.0-393.0 CBC W/O [id number] 03:46:00* Test Item Value Reference Range Interpretation Comments WHITE BLOOD CELL (test code = WBC) 9.0 K/mm3 4.5-12.5 N RED BLOOD CELL (test code = RBC) 4.59 mill/mm3 4.0-5.8 N HEMOGLOBIN (test code = HGB) 13.0 gram/dL 13.0-17.5 N HEMATOCRIT (test code = HCT) 42.4 % 42.0-52.0 N MEAN CELL VOLUME (test code = MCV) 92.4 fL 80-98 N MEAN CELL HGB (test code = MCH) 28.3 picogram 27.0-33.0 N MEAN CELL HGB CONCETRATION (test code = MCHC) 30.7 gram/dL 33.0-36. 0 L RED CELL DISTRIBUTION WIDTH (test code = RDW) 13.5 % 11.6-16. 2 N PLATELET COUNT (test code = PLT) 245 K/mm3 150-450 N MEAN PLATELET VOLUME (test code = MPV) 10.9 fL 6.7-11.0 N [id number] 17:23:00 RUN DATE: 12/16/17 [place] [employer] [facility] PAGE 1 RUN TIME: 1723 Specimen Inqui ry RUN USER: INTERFACE PATIENT: DAISHABREE ACCT #: [id number] LOC: JOHNATHAN U #: [id number] AGE/SX: 42/M ROOM: [facility] RE12/11/17REG DR: Olegario Diaz MD : 75 BED: A DIS: 12/13/17 STATUS: DIS IN TLOC: SPEC #: [id number] RECD: 12/14/17 STATUS: SHAHRAM LUEVANO #: [id number] HUY: 12/11/17- SUBM DR: Kvng Izaguirre MD ENTERED: 12/14/17-1150 SP TYPE: STOMACH OTHR DR: Levi Natarajan i, MD ORDERED: GROSS COPIES TO: Kvng Izaguirre MD [address] [place] [address] Levi Lakhani MD [address], [address] [place] [address] PROCEDURES: GROSS (12/15/17-5622 ) TISSUES: 1. GASTRIC ULCER - BX 2. ESOPHAGUS, NOS - BX CLINICAL HISTORY COLLECTION DATE: 12/11/17 ABDOMINAL PAIN, HEMATEMESIS POST-OP DIAGNOSIS: EROSIVE ESOPHAGITIS, GASTRITIS FINAL DIAGNOSIS Stomach, biopsy: CHRONIC GASTRITIS WITH FOCAL INTESTINAL METAPLASIA CONTROLLED GIEMSA STAIN NEGATIVE FOR HELICOBACTER ORGANISMS NEGATIVE F OR DYSPLASIA NEGATIVE FOR MALIGNANCY Esophagus, biopsy: F RAGMENT OF SQUAMOUS MUCOSA WITH FOCAL INCREASE IN INTRAEPITHELIAL NEUT ROPHILS CONSISTENT WITH ESOPHAGITIS SQUAMOCOLUMNAR MUCOSA WITH ACUTE AND CHRONIC INFLAMMATION NEGATIVE FOR INTESTINAL METAPLASIA AND DYSPLASIA NEGATIVE FOR MALIGNANCY MYA/sm D 2) [id number], [id number] CONTINUED ON NEXT PAGE RUN DATE: 12/16/17 [facility] PAGE 2 RUN TIME: 1723 Specimen Inquiry RUN USER: INTER FACE SPEC #: [id number] PATIENT: BREE ASHTON #[id number] (Con tinued) MACROSCOPIC The first specimen is received in formalin, labeled with the patient's name, and identified as "gastric bx". It consists of mendoza biopsy material measuring 0.5 cm in aggregate. An H E and a G iemsa stain will be prepared. The second specimen is received in formalin, labeled with the patient's name, and identified as "bx esophagus". It consis ts of two mendoza biopsy fragments measuring 0.2 cm each. GROSS PERFORMED AT [facility] [address] [place] [address] [id number] [phone])[phone] MICROSCOPIC MICROSCOPIC PERFORMED AT [facility] All of the stains, including any controls performed, hao swift. [facility] [address] [place] [phone])[phone] PERFORMING SITE Diagnosis performed at: [facility] [address] [place] [id number] Signed SIGNATURE ON FILE Leigh Ann Fuller 12/16/17 1723 END OF REPORT
[2019-08-23] MEDS ORDERED: SODIUM CHLORIDE 0.9% 1000ML 1,000 ML IV STA (17:54)
[2019-08-23] MEDS ORDERED: ONDANSETRON HCL INJ 2MG/ML 2ML 2 MG/ML VIAL IV STA ×2 (17:54→18:48)
[2019-08-23] MEDS ORDERED: SODIUM CHLORIDE 0.9% 1000ML 1,000 ML ONE (18:08)
[2019-08-23] MEDS ORDERED: ONDANSETRON HCL INJ 2MG/ML 2ML 2 MG/ML VIAL ONE ×2 (18:08→18:46)
--- NOTE | 2019-08-23 18:26 | Emergency Department Note ---
History of Present Illnes History of Present Illness Chief Complaint: Abdominal Complaints History of Present Illness This is a 43 year old male Chief Complaint Comment nausea vomiting and abd pain since 0600 this am, pt has HX of Gastroparesis., . Historian: Patient Arrival Mode: Car Onset (how long ago): day(s) (1) Location: epigastric Quality: dull Radiation: non-radiation Severity: moderate Onset quality: gradual Duration (how long): day(s) (1) Timing of current episode: intermittent Progression: waxing and waning Chronicity: new Context: recent illness, recent surgery, recent immobilization, recent travel, trauma/injury, new medications, hx of DVT/PE, non-compliance w/ medications, other Relieving factors: none Associated symptoms: denies other symptoms Treatments prior to arrival: none Past Medical/Family History Physician Review I have reviewed the patient's past medical and family history. Any updates have been documented here. Past Medical History Recent Fever: No Clinical Suspicion of Infectio: No New/Unexplained Change in Ment: No Past Medical History: Diabetes Other Medical History: GASTROPERESIS Past Surgical History: Cholecysctectomy Other Surgery: EDG LEFT FOOT GANGRENE REMOVAL Social History Smoking Cessation: Never Smoker Counseling Performed: No Alcohol Use: None Any Illegal Drug Use: No TB Exposure/Symptoms: No Physically hurt or threatened: No Other Last Tetanus: UNKNOWN Any Pre-Existing Lines (PICC,: No Is patient up to date on immun: Yes Last Flu: 2019 Last Pneumovax: unk Review of Systems Review of Systems Constitutional: no symptoms EENTM: no symptoms Cardiovascular: no symptoms Respiratory: no symptoms Gastrointestinal: abdominal pain, nausea, vomiting Genitourinary: no symptoms Musculoskeletal: no symptoms Neurological: no symptoms Psychological: no symptoms Endocrine: no symptoms Hematological/Lymphatic: no symptoms Review of other systems All other systems reviewed and negative. Physical Exam Related Data Allergies: Coded Allergies: No Known Allergies (Unverified , 07/02/18) Triage Vital Signs Vital Signs Date Time Temp Pulse Resp B/P (MAP) Pulse Ox O2 Delivery O2 Flow Rate FiO2 08/23/19 17:53 99.0 104 18 167/75 99 Vital signs reviewed: Yes Physical Exam CONSTITUTIONAL Constitutional: well-developed, well-nourished HENT HENT: normocephalic, atraumatic, oropharynx clear/moist, nose normal HENT L/R: left ext ear normal, right ext ear normal EYES Eyes: PERRL, conjunctivae normal NECK Neck: ROM normal PULMONARY Pulmonary: effort normal, breath sounds normal CARDIOVASCULAR Cardiovascular: regular rhythm, heart sounds normal, capillary refill normal, normal rate GASTROINTESTINAL Abdominal: soft, bowel sounds normal, tender (epigastric/mild) GENITOURINARY Genitourinary: exam deferred SKIN Skin: warm, dry MUSCULOSKELETAL Musculoskeletal: ROM normal NEUROLOGICAL Neurological: alert, oriented x 3, no gross motor or sensory deficits PSYCHOLOGICAL Psychological: mood/affect normal, judgement normal Results Laboratory Lab results reviewed: Yes Critical Care Time Subsequent provider I assumed direction of critical care for this patient from another provider of my specialty. Assessment & Plan Assessment & Plan Final Impression: (1) Abdominal pain, acute, epigastric (2) Nausea & vomiting (3) Dehydration Assessment & Plan zofran Depart Disposition: HOME, SELF-CARE Last Vital Signs Date Time Temp Pulse Resp B/P (MAP) Pulse Ox O2 Delivery O2 Flow Rate FiO2 08/23/19 17:53 99.0 104 18 167/75 99 Home Meds Active Scripts Acetaminophen With Codeine (TYLENOL WITH CODEINE #3 TABLET) 1 Each Tablet, 300 MG PO Q6H PRN for pain, #20 TAB Prov:JAREK LO NP 07/10/19 Metoclopramide Hcl (REGLAN) 10 Mg Tablet, 1 TAB PO ACHS for 30 Days Before meals Prov:JAREK LO NP 11/25/18 Pantoprazole Sodium* (PROTONIX) 40 Mg Tablet.dr, 40 MG PO DAILY for 30 Days Prov:JAREK LO NP 11/25/18 Reported Medications Ondansetron Hcl (ONDANSETRON HCL) 4 Mg Tablet, 4 MG SL Q6H PRN for NAUSEA 07/02/18 Insulin Glargine (LANTUS 3ML PEN) 100 Units/1 Ml Inj, 15 UNITS SQ HS 07/02/18 Lisinopril (LISINOPRIL) 5 Mg Tablet, 5 MG PO DAILY 07/02/18 Insulin Aspart (NOVOLOG) 100 Units/1 Ml Inj, 8 UNITS SQ TIDWM 07/02/18 Medications in the ED Ondansetron HCl 4 mg NOW STAT IV Last administered on 08/23/19at 18:06; Admin Dose 4 MG; Start 08/23/19 at 17:54; Stop 08/23/19 at 17:57; Status DC Sodium Chloride 1,000 ml @ 0 mls/hr Q0M STAT IV Last administered on 08/23/19at 18:06; Admin Dose 1,000 MLS/HR; Start 08/23/19 at 17:54; Stop 08/23/19 at 17:55; Status DC Ondansetron HCl 4 mg STK-MED ONCE .ROUTE ; Start 08/23/19 at 18:08; Stop 08/23/19 at 18:06; Status DC Sodium Chloride 1,000 ml @ ud STK-MED ONCE .ROUTE ; Start 08/23/19 at 18:08; Stop 08/23/19 at 18:06; Status DC FILIBERTO ROSENTHAL MD August 23, 2019 18:26
[2019-08-23] MEDS ORDERED: MORPHINE SULFATE 2 MG/ML SYR 1ML IV STA (18:37)
[2019-08-23] MEDS ORDERED: PROMETHAZINE 12.5MG/ NACL 0.9% 12.5 MG/50 ML BAG IV ONE (18:45)
[2019-08-23] MEDS ORDERED: MORPHINE SULFATE INJ 4 MG/ML INJ 1ML ONE (18:45)
[2019-08-23] MEDS ORDERED: MORPHINE SULFATE INJ 4 MG/ML INJ 1ML IV STA (18:46)
[2019-08-23] MEDS ORDERED: PROMETHAZINE HCL (IM) 25 MG/ML VIAL ONE (18:51)
[2019-08-23 19:29] VITALS: BP 147/64
== END 2019-08-23 19:35 | disposition home or self-care (01) ==
LOC: FSED 17:24
DX: R10.13 Epigastric pain (principal); R11.2 Nausea with vomiting, unspecified; E86.0 Dehydration; Z87.19 Personal history of other diseases of the digestive system
CPT/HCPCS: 80048; 80076; 81003; 99283; J2270; J2405; J2550; J7030

== ENCOUNTER 2019-08-24 05:32 | Observation (INO) | payer MEDICARE, OTHER ==
[~2019-08-24] VITALS: Ht 185.4 cm; Wt 86.2 kg
--- OUTSIDE RECORDS SUMMARY | 2019-08-24 05:34 | XMS REPORT | Clinical Summary ---
Author Author [facility] Address Unknown Phone Unavailable Care Team Providers Care Trichologist Name Role Phone Pcp, No PCP Unavailable [...] (HCC); Cannabinoid hyperemesis syndrome (HCC); Hypokalemia 12/13/2018 [facility] Internal [place] dicine - Encounter 12/14/2018 12/13/2018 Travel after 08/23/2018 Family History Medical History Relation Name Comments [...] METER Routine 12/13/2018 12:25 PM CDT after 08/23/2018 Results * EKG-SCANNED (12/16/2018 9:02 AM CDT) Narrative Performed At This result has an attachment that is n ot available. * POC-Glucose meter (12/14/2018 5:15 PM CDT) Only the most recent of 6 results within the time period is included. POC-Glucose Meter 266 (H)Comment: TESTED AT 70 - 110 mg/dL [facility] [address] [facility] [id number] Specimen Blood Performing Organization Address City/State/Zipcode Ph one Number [facility] [address] [place], [place] [address] [facility] * ECG 12 lead (12/14/2018 10:08 AM CDT) Specimen Narrative Performed At Ventricular Rate 78 BPM [facility] Atrial Rate 78 BPM P-R Interval 168 ms QRS Duration 80 ms Q-T Interval 350 ms QTC Calculation(Bazett) 399 ms P [place] 52 degrees R [place] -14 degrees T [place] 35 degrees Normal sinus rhythm Normal ECG No previous ECGs available Confirmed by MD BRODERICK YOCHAI ([id number] ) on 12/14/2018 2:27:24 PM Procedure Note Interface, External Ris In - 12/14/2018 2:27 PM CDT Ventricular Rate 78 BPM Atrial Rate 78 BPM P-R Interval 168 ms QRS Duration 80 ms Q-T Interval 350 ms QTC Calculation(Bazett) 399 ms P [place] 52 degrees R [place] -14 degrees T [place] 35 degrees Normal sinus rhythm Normal ECG No previous ECGs available Confirmed by MD BRODERICK YOCHAI ([id number]) on 12/14/2018 2:27:24 PM Performing Organization Address City/State/Zipcode Ph one Number GE [facility] * CBC with platelet count + automated diff (12/14/2018 4:58 AM CDT) Only the most recent of 2 results within the time period is included. WBC 7.5 3.5 - 10.5 K/L [facility] RBC 3.38 (L) 4.63 - 6.08 M/L [facility] Hemoglobin 9.8 (L) 13.7 - 17.5 GM/DL [facility] Hematocrit 31.1 (L) 40.1 - 51.0 % [facility] MCV 92.0 79.0 - 92.[address] [facility] MCH 29.0 25.7 - 32.[address] [facility] MCHC 31.5 (L) 32.3 - 36.5 GM/DL [facility] RDW 14.1 11.6 - 14.4 % [facility] Platelets 208Comment: Discordant PLT 150 - 450 K/CU MM [facility] results compared to previous [facility] results; clinical correlation required. MPV 10.4 9.4 - 12.[address] [facility] nRBC 0 0 - 0 /[address] [facility] % Neutros 66 % [facility] % Lymphs 20 % [facility] % Monos 12 % [facility] % Eos 1 % [facility] % Baso 1 % [facility] # Neutros 4.92 1.78 - 5.38 K/L [facility] # Lymphs 1.46 1.32 - 3.57 K/L [facility] # Monos 0.92 (H) 0.30 - 0.82 K/L [facility] # Eos 0.10 0.04 - 0.54 K/L [facility] # Baso 0.07 0.01 - 0.08 K/L [facility] Immature 0 0 - 1 % [facility] Granulocytes-[facility] Specimen Blood Performing Organization Address [facility] one Number [place] [phone] [place] [address] * Phosphorus (12/14/2018 4:58 AM CDT) Phosphorus 2.2 (L) 2.3 - 4.7 mg/dL [facility] Specimen Blood Performing Organization Address City/[facility] Ph one Number [place] [address] [phone] [place] [address] * Magnesium (12/14/2018 4:58 AM CDT) Magnesium 1.6 1.6 - 2.6 mg/dL [facility] Specimen Blood Performing Organization Address City/[facility]/Zipcode Ph one Number [address] [facility] * Basic metabolic panel (12/14/2018 4:58 AM CDT) Only the most recent of 2 results within the time period is included. Sodium 139 136 - 145 meq/L [facility] Potassium 3.2 (L) 3.5 - 5.1 meq/L [facility] Chloride 105 98 - 107 meq/L [facility] CO2 28 22 - 29 meq/L [facility] BUN 11 7 - 21 mg/dL [facility] Creatinine 1.12 0.57 - 1.25 mg/dL [facility] Glucose 112 (H) 70 - 105 mg/dL [facility] Calcium 8.7 8.4 - 10.2 mg/dL [facility] EGFR 87Comment: ESTIMATED GFR IS mL/min/1.[address] [facility] NOT ACCURATE CREATININE [facility] CLEARANCE IN PREDICTING GLOMERULAR FILTRATION RATE. ESTIMATED GFR IS NOT APPLICABLE FOR DIALYSIS PATIENTS. Specimen Blood Performing Organization Address [facility] one Number [address] [facility] * Hemoglobin A1c (12/13/2018 3:38 PM CDT) Hemoglobin A1C 8.4 (H) 4.3 - 6.1 % [facility] Specimen Blood Performing Organization Address City/[facility] one Number [address] [facility] * Hepatic function panel (12/13/2018 3:38 PM CDT) Protein, Total 6.9 6.0 - 8.3 gm/dL [facility] Albumin 3.9 3.5 - 5.0 g/dL [facility] Total Bilirubin 0.5 0.2 - 1.2 mg/dL [facility] Bilirubin, Direct 0.2 0.1 - 0.5 mg/dL [facility] Alkaline Phosphatase 80 40 - 150 U/L [facility] AST 18 5 - 34 U/L [facility] ALT 15 6 - 55 U/L [facility] Specimen Blood Performing Organization Address [facility] [place] one Number [facility] [address] [place], [place] [address] [facility] * Lipid panel (12/13/2018 3:38 PM CDT) Triglycerides 101 mg/dL [facility] Cholesterol 151 mg/dL [facility] HDL 38 mg/dL [facility] LDL Calculated 93 mg/dL [facility] Specimen Blood Narrative Performed At Triglyceride Reference Range: [facility] Low Risk <150 [facility] [id number] High Risk 200-499 Very High Risk>=500 Cholesterol Reference Range: Low Risk <200 [id number] High Risk>240 HDL Cholesterol Reference Range: Low Risk >=60 High Risk <40 LDL Cholesterol Reference Range: Optimal<100 Near [id number] Very High >=190 Performing Organization Address [facility] [place] [facility] [place] Ph one Number [facility] [address] [place], [place] [address] [facility] after 08/23/2018 Insurance Payer Benefit Subscriber ID Type Phone Address Plan / Group MEDICARE MEDICARE A xxxxxxxxxxx Medicare B [id number] Advance Directives For more information, please contact: [address] [address] Date Inactivated Comments Code Status Date Activated 12/15/2018 12:01 AM Full Code 12/13/2018 10:07 AM This code status was determined by: Patient
--- OUTSIDE RECORDS SUMMARY | 2019-08-24 05:36 | XMS REPORT ---
Author Author [facility] t Organization [facility] t Address [facility] [address] [place] [address] Phone Unavailable Support Name Relationship Address Phone NeftaliAleisha henriquez ECON [address] [place], [place] [address] ALEISHA PARKER Next Of Kin [address] [place], [place] [id number] Isis RUFFIN MD Caregiver [address] [place] [address] Unavailable MELY GOLDSMITH MD Caregiver [address] [place] [address] Chao BECKMANRUBÉN Caregiver [address] [place] [address] TANVIR FALLON, Mary Ann BENITEZ Caregiver [address] [place] [address] Unavailable Mary Ann LOONEY MD Caregiver [address] [place] [address] Unavailable ISACC JAVED MD Caregiver [address] [facility] [address] [place] [address] CHRIS FALLON, NEIL Caregiver [address] [facility] [address] [place] [address] Unavailable Kelly GORDON MD Caregiver [address] [place] [address] Unavailable RIGOBERTO FALLON, Isis NEWMAN Caregiver [address] [place] [address] Unavailable ARIADNA FALLON, FILIBERTO Caregiver [address] [place] [address] RIGOBERTO FALLON, Isis NEWMAN Caregiver [address] [place] [address] MD FILIBERTO ROSENTHAL PRS [address] [place] [address] ALEISHA PARKER PRS [address], [place] [address] Care Team Providers Care Tariff Inspector Name Role Phone Chao BECKMAN PCP NEIL PEREZ Attphys Unavailable Dasia GIBSON, Zaina Attphys GADICHERLA, MURALINATH DORETHA Attphys Unavailable KILLNATIVIDAD, ISACC Attphys Unavailable TAVIA GARCIA Attphys Unavailable GADICHERLA, MURALINATH DORETHA Admphys Unavailable KILLAM, ISACC Admphys Unavailable Payers Payer Name Policy Type Policy Number Effective Date Expiration Date Keeley cagle Medicare A & B [id number] 2016 00:00:[address] [facility] Medicare A & B [id number] 2016 00:00:00 [facility] Medicare A & B [id number] 2016 00:00:00 [facility] Medicare A & B [id number] 2016 00:00:00 [facility] Medicare A & B [id number] 2016 00:00:00 [facility] Medicare A & B [id number] 2016 00:00:00 [facility] Medicare A & B [id number] 2016 00:00:00 [facility] Medicare A & B [id number] 2016 00:00:00 [facility] Advance Directives Directive Decision Effective Date Termination Date Comments Sour ce Yes N/A [facility] Problems Condition Name Condition Details Condition Category Status Onset Date Resolution Date Last Treatment Date Treating Clinician Comments Source Diabetic gastroparesis associated with type 2 diabetes mellitus Diabetic gastroparesis associated with type 2 diabetes mellitus Problem Active [facility] Upper gastrointestinal hemorrhage Upper GI bleed Problem Active [facility] Dehydration Dehydration Problem Active [facility] Nausea and vomiting Nausea & vomiting Problem Active [facility] Hematemesis Problem [facility] Acute epigastric pain Problem [facility] Allergies, Adverse Reactions, Alerts Allergy Name Allergy Type Status Severity Reaction(s) Onset Date Inacti ve Date Treating Clinician Comments Source No Known Allergies DA Active U 2019-02-13 00:00:00 [facility] No Known Allergies DA Active U 2019-02-06 00:00:00 [facility] No Known Allergies DA Active U 2018-05-11 00:00:00 [facility] No Known Allergies DA Active U 2018-02-26 00:00:00 [facility] No Known Allergies DA Active U 2018-01-14 00:00:00 [facility] No Known Allergies DA Active U 2017-12-15 00:00:00 [facility] No Known Allergies DA Active U 2017-10-09 00:00:00 [facility] Social History Social Habit Start Date Stop Date Quantity Comments Source Sex Assigned At 1975 00:00:00 1975 00:00:00 Male [facility] Medications Ordered Medication Name Filled Medication Name Start Date Stop Da te Current Medication? Ordering Clinician Indication Dosage Frequency Signature (SIG) Comments Components Source Acetaminophen With Codeine (Tylenol With Codeine #3 Ta blet) 1 Each TABLET Acetaminophen With Codeine (Tylenol With Codeine #3 Tablet) 1 Each TABLET 2019-07-10 18:44:00 Yes 300 [facility] Promethazine Hcl Promethazine Hcl 2019-07-06 13:42:00 2019-07-10 00:00 :00 No 25 [facility] Ondansetron (Ondansetron Odt) 8 Mg TAB.RAPDIS Ondanset calli (Ondansetron Odt) 8 Mg TAB.RAPDIS 2018-12-12 19:01:00 2019-07-10 00:00:00 No 4 [facility] Promethazine Hcl (Phenergan Supp*) 25 Mg SUPP Prometha zine Hcl (Phenergan Supp*) 25 Mg SUPP 2018-12-12 19:01:00 2019-07-10 00:00:00 No 25 [facility] Metoclopramide Hcl (Reglan) 10 Mg TABLET Metoclopramid e Hcl (Reglan) 10 Mg TABLET 2018-11-25 06:19:00 Yes 1 [facility] Pantoprazole Sodium (Protonix) 40 Mg TABLET. Pantopr azole Sodium (Protonix) 40 Mg TABLET. 2018-11-25 06:19:00 Yes 40 [facility] Amlodipine Besylate (Norvasc) 10 Mg TAB Amlodipine Besylate (Norvasc) 10 Mg TAB 2018-11-25 06:19:00 2019-07-09 00:00:00 No 10 [facility] Insulin Aspart (Novolog) 100 Units/1 Ml INJ Insulin As part (Novolog) 100 Units/1 Ml INJ Yes 8 [facility] Insulin Glargine (Lantus 3ML Pen) 100 Units/1 Ml INJ I nsulin Glargine (Lantus 3ML Pen) 100 Units/1 Ml INJ Yes 15 [facility] Lisinopril Lisinopril Yes 5 [facility] Ondansetron Hcl Ondansetron Hcl Yes 4 [facility] Dicyclomine Hcl Dicyclomine Hcl 2019-07-10 00:00:00 No 10 [facility] Promethazine Hcl Promethazine Hcl 2019-07-10 00:00:00 No 2 5 [facility] Tramadol Hcl (Ultram 50MG*) 50 Mg TAB Tramadol Hcl (Ultram 50MG* ) 50 Mg TAB 2019-07-10 00:00:00 No 1 [facility] Glimepiride Glimepiride 2019-07-09 00:00:00 No 2 [facility] Metoclopramide Hcl (Reglan) 10 Mg TABLET Metoclopramid e Hcl (Reglan) 10 Mg TABLET 2018-11-25 00:00:00 No 1 [facility] Metoclopramide Hcl Metoclopramide Hcl 2018-11-25 00:00:00 No 10 [facility] Metoclopramide Hcl (Reglan) 10 Mg TABLET Metoclopramid e Hcl (Reglan) 10 Mg TABLET 2018-11-25 00:00:00 No 1 [facility] Pantoprazole Sodium (Protonix) 40 Mg TABLET. Pantopr azole Sodium (Protonix) 40 Mg TABLET. 2018-11-25 00:00:00 No 40 [facility] Pantoprazole Sodium (Protonix) 40 Mg TABLET. Pantopr azole Sodium (Protonix) 40 Mg TABLET. 2018-11-25 00:00:00 No 40 [facility] Vital Signs Vital Name Observation Time Observation Value Comments Source Weight 2019-08-23 17:53:00 195 [lb_av] [facility] BMI (Body Mass Index) 2019-08-23 17:53:00 25.7 kg/m2 [facility] Body Temperature 2019-07-24 12:23:00 97.6 [degF] [facility] Procedures This patient has no known procedures. Plan of Care Planned Activity Planned Date Details Comments Source Goal Patient referral [code = 2497427 ] [facility] Instructions Abdominal Pain - Adult [facility] Encounters Start Date/Time End Date/Time Encounter Type Admission Type Attendi [facility] Facility Care Department Encounter ID Source 2019-08-23 17:24:00 2019-08-23 19:35:00 Departed Emergency Room [facility] [id number] [facility] 2019-07-23 06:38:00 2019-07-24 13:59:00 Discharged Inpatient 1 ALEJANDRANEIL BAL [facility] [id number] [facility] 2019-07-09 15:58:00 2019-07-10 18:57:00 Discharged Inpatient (obs) [facility] [id number] [facility] 2019-07-06 11:09:00 2019-07-06 14:11:[address] [facility] [id number] [facility] 2019-05-31 00:00:00 2019-05-31 00:00:00 Transition of Care Zaina Forman [id number] 2018-12-13 06:33:00 2018-12-13 08:35:[address] [facility] [id number] [facility] 2018-12-12 17:07:00 2018-12-12 19:35:[address] [facility] [id number] [facility] 2018-11-22 18:24:00 2018-11-25 16:05:00 Discharged Inpatient [address] [facility] [id number] [facility] 2018-09-28 12:15:00 2018-09-28 16:32:00 Departed Emergency Room [facility] [id number] [facility] 2018-09-20 08:55:00 2018-09-20 08:55:00 Registered Clinic 3 TAVIA GARCIA [facility] [id number] [facility] 2018-08-10 13:35:00 2018-08-10 17:00:00 Departed Emergency Room [facility] [id number] [facility] 2018-07-05 11:53:00 2018-07-07 08:40:00 Discharged Inpatient [facility] [id number] [facility] 2018-06-23 07:38:00 2018-06-23 07:38:00 Registered Clinic 3 TAVIA GARCIA [facility] [id number] [facility] Results Test Description Test Time Test Comments Results Result Comments Source Capillary blood glucose measurement by glucometer (mas s/volume) 2019-07-24 11:15:00 Test Item Bedside Glucose (test code = 13725-7) 145 [facility] automated count (number/volume)2019-07-24 06:10:00* Test Item Value Reference Range Interpretation Comments White Blood Count (test code = 6690-2) 6.43 [facility] erythrocytes automated count (number/volume)2019-07-24 06:10:00* Test Item Value Reference Range Interpretation Comments Red Blood Count (test code = 789-8) 3.29 [facility] hemoglobin measurement (moles/volume)2019-07-24 06:10:00* Test Item Value Reference Range Interpretation Comments Hemoglobin (test code = 83864-1) 9.4 [facility] blood hematocrit (volume fraction)2019-07-24 06:10:00* Test Item Value Reference Range Interpretation Comments Hematocrit (test code = 4544-3) 29.7 [facility] Hospital[facility] erythrocyte mean corpuscular ndefpm6517-51-29 06:10:00* Test Item Value Reference Range Interpretation Comments Mean Corpuscular Volume (test code = 787-2) 90.3 [facility] erythrocyte mean corpuscular hemoglobin (mass per erythrocyte)2019-07-24 06:10:00* Test Item Value Reference Range Interpretation Comments Mean Corpuscular Hemoglobin (test code = 785-6) 28.6 [facility] Hospital[facility] erythrocyte mean corpuscular hemoglobin concentration measurement (mass/volume)2019-07-24 06:10:00* Test Item Value Reference Range Interpretation Comments Mean Corpuscular Hemoglobin Concent (test code = 786-4) 31.6 [facility] HospitalRDW MiqBc-Wwt0695-85-26 06:10:00* Test Item Value Reference Range Interpretation Comments Red Cell Distribution Width (test code = 29976-5) 14.5 [facility] Hospital[facility] blood platelet count (count/volume)2019-07-24 06:10:00* Test Item Value Reference Range Interpretation Comments Platelet Count (test code = 777-3) 132 [facility] neutrophil count as percentage of total zsdkfwjyiy0755-37-66 06:10:00* Test Item Value Reference Range Interpretation Comments Neutrophils (%) (Auto) (test code = 98365-5) 61.3 [facility] lymphocyte count as percentage ot total ndnkxvoptw9463-00-34 06:10:00* Test Item Value Reference Range Interpretation Comments Lymphocytes (%) (Auto) (test code = 736-9) 24.9 [facility] monocyte count as percentage of total hkxglmjrlb2053-21-56 06:10:00* Test Item Value Reference Range Interpretation Comments Monocytes (%) (Auto) (test code = 5905-5) 10.0 [facility] eosinophil count as percentage of total kbpnqeqhkd3228-26-36 06:10:00* Test Item Value Reference Range Interpretation Comments Eosinophils (%) (Auto) (test code = 713-8) 2.6 [facility] Hospital[facility] blood basophil count as percentage of total smdpyauxva8282-27-32 06:10:00* Test Item Value Reference Range Interpretation Comments Basophils (%) (Auto) (test code = 706-2) 0.9 [facility] HospitalFluoroscopic procedure less than one hour pwkfglbx2009-14-05 06:10:00* Test Item Value Reference Range Interpretation Comments IM GRANULOCYTES % (test code = IM GRANULOCYTES %) 0.3 [facility] HospitalAutom[facility] blood neutrophil count 2019-07-24 06:10:00* Test Item Value Reference Range Interpretation Comments Neutrophils # (Auto) (test code = 751-8) 3.9 [facility] Hospital[facility] lymphocytes count (number/volume) 2019-07-24 06:10:00* Test Item Value Reference Range Interpretation Comments Lymphocytes # (Auto) (test code = 05652-0) 1.6 [facility] monocytes automated count (number/volume)2019-07-24 06:10:00* Test Item Value Reference Range Interpretation Comments Monocytes # (Auto) (test code = 742-7) 0.6 [facility] HospitalAutom[facility] blood eosinophil count 2019-07-24 06:10:00* Test Item Value Reference Range Interpretation Comments Eosinophils # (Auto) (test code = 711-2) 0.2 [facility] HospitalAutomated blood basophil count (count/volume)2019-07-24 06:10:00* Test Item Value Reference Range Interpretation Comments Basophils # (Auto) (test code = 704-7) 0.1 [facility] HospitalFluoroscopic procedure less than one hour nrtlbbds0096-42-73 06:10:00* Test Item Value Reference Range Interpretation Comments Absolute Immature Granulocyte (auto (zeenat t code = Absolute Immature Granulocyte (auto) 0.02 [facility] sodium measurement (moles/volume)2019-07-24 06:10:00* Test Item Value Reference Range Interpretation Comments Sodium Level (test code = 2951-2) 136 [facility] potassium measurement (moles/volume)2019-07-24 06:10:00* Test Item Value Reference Range Interpretation Comments Potassium Level (test code = 2823-3) 3.7 [facility] chloride measurement (moles/volume)2019-07-24 06:10:00* Test Item Value Reference Range Interpretation Comments Chloride Level (test code = 2075-0) 106 [facility] plasma carbon dioxide, total measurement (moles/volume)2019-07-24 06:10:00* Test Item Value Reference Range Interpretation Comments Carbon Dioxide Level (test code = 2028-9) 23 [facility] or plasma anion uys5482-04-18 06:10:00* Test Item Value Reference Range Interpretation Comments Anion Gap (test code = 11586-3) 10.7 [facility] plasma urea nitrogen measurement (mass/volume)2019-07-24 06:10:00* Test Item Value Reference Range Interpretation Comments Blood Urea Nitrogen (test code = 3094-0) 13 [facility] creatinine measurement (mass/volume)2019-07-24 06:10:00* Test Item Value Reference Range Interpretation Comments Creatinine (test code = 2160-0) 1.24 [facility] plasma urea nitrogen/creatinine mass hfnju9137-09-88 06:10:00* Test Item Value Reference Range Interpretation Comments BUN/Creatinine Ratio (test code = 3097-3) 10 [facility] HospitalEstimated glomerular filtration rate (GFR) qinnolyqmsbku7132-36-62 06:10:00* Test Item Value Reference Range Interpretation Comments Estimat Glomerular Filtration Rate (test code = 726657438) > 60 [facility] HospitalGlucose tlaylwzytac2846-56-37 06:10:00* Test Item Value Reference Range Interpretation Comments Glucose Level (test code = PLX2587) 148 [facility] calcium measurement (mass/volume)2019-07-24 06:10:00* Test Item Value Reference Range Interpretation Comments Calcium Level (test code = 32013-5) 8.6 [facility] plasma total bilirubin measurement (mass/volume)2019-07-24 06:10:00* Test Item Value Reference Range Interpretation Comments Total Bilirubin (test code = 1975-2) 0.5 [facility] HospitalFluoroscopic procedure less than one hour xxwtclul8216-58-07 06:10:00* Test Item Value Reference Range Interpretation Comments Aspartate Amino Transf (AST/SGOT) (test code = Aspartate Amino Transf (AST/SGOT)) 14 [facility] or plasma alanine aminotransferase measurement (enzymatic activity/volume)2019-07-24 06:10:00* Test Item Value Reference Range Interpretation Comments Alanine Aminotransferase (ALT/SGPT) (test code = 1742-6) 15 [facility] or plasma protein measurement (mass/volume)2019-07-24 06:10:00* Test Item Value Reference Range Interpretation Comments Total Protein (test code = 2885-2) 6.2 [facility] albumin measurement (mass/volume)2019-07-24 06:10:00* Test Item Value Reference Range Interpretation Comments Albumin (test code = 1751-7) 3.1 [facility] HospitalPlasma globulin measurement (mass/volume) 2019-07-24 06:10:00* Test Item Value Reference Range Interpretation Comments Globulin (test code = 76746-4) 3.1 [facility] plasma albumin/globulin mass gemwh6535-36-22 06:10:00* Test Item Value Reference Range Interpretation Comments Albumin/Globulin Ratio (test code = 1759-0) 1.0 [facility]ere[facility] or plasma alkaline phosphatase measurement (enzymatic activity/volume)2019-07-24 06:10:00* Test Item Value Reference Range Interpretation Comments Alkaline Phosphatase (test code = 6768-6) 106 [facility]ere[facility] or plasma amylase measurement (enzymatic activity/volume)2019-07-24 06:10:00* Test Item Value Reference Range Interpretation Comments Amylase Level (test code = 1798-8) 36 [facility]ere[facility] or plasma lipase measurement (enzymatic activity/volume)2019-07-24 06:10:00* Test Item Value Reference Range Interpretation Comments Lipase (test code = 3040-3) < 4 [facility] HospitalFluoroscopic procedure less than one hour acxqctqm2632-87-25 12:20:00* Test Item Value Reference Range Interpretation Comments Hemoglobin A1c Percent (test code = Hemoglobin A1c Percent) 8.4 [facility] HospitalFluoroscopic procedure less than one hour tgvfznnk1935-79-73 12:20:00* Test Item Value Reference Range Interpretation Comments Lactic Acid Level (test code = Lactic Acid Level) 0.8 [facility] HospitalCT A[facility]/PEL WO DKKZWWWB-QPPT7242-86-25 06:46:00 [place] [address] Patient Name: BREE ASHTON MR #: [id number] : 1975 Age/Sex: 43/M Req #: [id number] Adm Physician: Ordered by: NEIL PEREZ MD Report #: [id number] Location: [facility] Room/Bed: Procedure: [id number] HOPD/CT ABD/PEL WO CONTRAST-HOPD Exam Date: 07/23/19 Exam Time: 618 REPORT STATUS: Sig lizette EXAM: CT Abdomen and Pelvis without contrast INDICATION: Vomiting wi th hematemesis. COMPARISON: Vomiting with hematemesis. TECHNIQUE: Abdo men and pelvis were scanned utilizing a multidetector helical scanner from the lung base to the pubic symphysis without administration of IV contrast. Coron al and sagittal reformations were obtained. Routine protocol was performed. La ck of intravenous contrast limits evaluation of visceral and vascular structur es. IV CONTRAST: None. ORAL CONTRAST: None. COMPL ICATIONS: None RADIATION DOSE: Total DLP: 615.3 mGy*cm Estima arben effective dose: (DLP x 0.015 x size factor) mSv CTDIvol has been revi ewed. It is below the limits set by [...] GI TRACT: Decompressed stomach. There is wall thick ening within the distal transverse, descending, and sigmoid colon. No evidence of bowel obstruction. Normal appendix. Small hiatal hernia. PELVIC ORGAN S/BLADDER: Bladder is partially decompressed but appears circumferentially mil dly thick-walled. Calcified pelvic phleboliths. LYMPH NODES: No lymphadenop athy. VESSELS: There is mild atherosclerotic disease in the aorta and major arterial branches. PERITONEUM / RETROPERITONEUM: No free air or fluid. BONES AND SOFT TISSUES: No acute osseous abnormality. No suspicious lytic or blastic lesions. Mild degenerative disc changes in the lower thoracic spine. CONCLUSION: Distal colonic wall thickening, suggestive of nonspecific col itis. Recommend clinical correlation. Mild nonspecific bilateral perineph olivia wall thickening, which may represent infectious or inflammatory etiology. Mild wall thickening within the bladder may reflect decompression or cystitis. Recommend correlation with urinalysis. Severe fatty atrophy of the pancrea s. Mild hypoattenuation of the blood pool within the heart, which may repre sent anemia. Coronary atherosclerosis (LCX). Signed by: Dr. Allison Adame MD on 07/23/2019 6:58 AM Dictated By: ALLISON ADAME MD Electronically S igned By: ALLISON ADAME MD on 07/23/19657 Transcribed By: PAULA on 07/23/19 COPY TO: NEIL PEREZ MD Bacterial blood vyrdcnj6241-71-32 06:44:00* Test Item Value Reference Range Interpretation Comments Blood Culture (test code = 600-7) STAPHYLOCOCCUS SP COAG NEG [facility] - [id number] 06:44:00 [place] [address] Patient Name: BREE ASHTON MR #: [id number] : 1975 Age/Sex: 43/M Req #: [id number] Adm Physician: Ordered by: NEIL PEREZ MD Report #: [id number] Location: [facility] Room/Bed: Procedure: [id number] HOPD/CXR 1 VEW - HOPD Exam Date: Exam Time: REPORT STATUS: Signed EXAMINATION: CXR 1 VEW - HOPD INDICATION: DKA. COMPARISON: Chest radiograph 11/22. FINDINGS: TUBES and LINES: None. LUNGS: Lungs are well inflated. There is no evidence of pneumonia or pulmonary edema. Mild bronch ial wall thickening. PLEURA: No pleural effusion or pneumothorax. HE ART AND MEDIASTINUM: The cardiomediastinal silhouette is unremarkable. BONES AND SOFT TISSUES: No acute osseous lesion. Soft tissues are unremarka ble. UPPER ABDOMEN: No free air under the diaphragm. There are cholecystect mary clips. IMPRESSION: No evidence of pneumonia. Mild bronchial wall t hickening, which may represent bronchitis in the appropriate clinical setting. Signed by: Dr. Allison Adame MD on 07/23/2019 6:46 AM Dictated By: DIO ADAME MD 5 Transcribe d By: PAULA on 07/23/19645 COPY TO: NEIL PEREZ MD Blood wqkqotd8338-94-79 06:05:00* Test Item Value Reference Range Interpretation Comments Blood Culture (test code = 62584996) NO GROWTH AFTER 5 DAYS, FINAL REPORT [facility] magnesium measurement (mass/volume)2019-07-10 05:32:00* Test Item Value Reference Range Interpretation Comments Magnesium Level (test code = 72679-3) 1.8 [facility] HospitalGLUBED2020-02-10 08:55:00* Test Item Value Reference Range Interpretation Comments GLUBED (test code = GLUBED) 122 mg/dL 74-106 H Performed by certified arch cushion press operator at [facility] QTZSBH6589-58-09 08:43:00* Test Item Value Reference Range Interpretation Comments GLUBED (test code = GLUBED) 140 mg/dL 74-106 H Performed by certified arch cushion press operator at [facility] - XR SHOULDER 1 V [id number] 13:41:00 FAX: Jg Astudillo MD [phone] [place]: St: [facility] FAX: Raphael BeckmanMineshDylan JUNG [phone] Name: BREE ASHTON : 1975 Age/S: 43/M [address] [place] [address] Blvd Unit #: [id number] Loc: [place] [address] Phys: Jg Astudillo MD Acct: [id number] Dis Date: Status: REG CLI PHONE #: [phone] Exam Date: 03/02/2019 1333 FAX #: [phone] Reason: PICC PLACEMENT EXAMS: CPT CODE: [id number] XR SHOULDER 1 V LT 59957 1 VIEW LEFT SHOULDER HISTORY: PICC line pl acement.. Left upper extremity PICC line present. Catheter tip pr ojects over the level of the inferior 3rd of the SVC. END IMPRESSION SL: [id number] at 1341 Reported and sig lizette by: Yusuf Burgos M.D. CC: Jg Astudillo MD; Zak Beckman DO Technologist: RT Rashida(Kelly) Trnscrd Date/Time/By: 03/02/2019 (6879) : By: Jaclyn Orig Print D/T: S: 03/02/2019 (2151) PAGE 1 Signed Report [id number] 08:06:00* Test Item Value Reference Range Interpretation Comments GLUBED (test code = GLUBED) 224 mg/dL 74-106 H Performed by certified arch cushion press operator at [facility] [id number] 22:57:00* Test Item Value Reference Range Interpretation Comments GLUBED (test code = GLUBED) 62 mg/dL 74-106 L Performed by certified arch cushion press operator at [facility] [id number] 18:14:00* Test Item Value Reference Range Interpretation Comments GLUBED (test code = GLUBED) 158 mg/dL 74-106 H Performed by certified arch cushion press operator at [facility] [id number] 11:43:00* Test Item Value Reference Range Interpretation Comments GLUBED (test code = GLUBED) 123 mg/dL 74-106 H Performed by certified arch cushion press operator at [facility] BASIC METABOLIC [id number] 11:04:00* Test Item Value Reference Range Interpretation [...] CA) 8.5 mg/dL 8.5-10.1 N BASIC METABOLIC [id number] 10:55:00* Test Item Value Reference Range Interpretation [...] code = CA) mg/dL 8.5-10.1 CBC W/AUTO [id number] 10:13:00* Test Item Value Reference Range Interpretation [...] code = NRBC#) 0.00 K/mm3 0.0-0.1 N [id number] 08:19:00* Test Item Value Reference Range Interpretation Comments GLUBED (test code = GLUBED) 81 mg/dL 74-106 N Performed by certified arch cushion press operator at [facility] [id number] 22:30:00* Test Item Value Reference Range Interpretation Comments GLUBED (test code = GLUBED) 243 mg/dL 74-106 H Performed by certified arch cushion press operator at [facility] [id number] 17:17:00* Test Item Value Reference Range Interpretation Comments GLUBED (test code = GLUBED) 91 mg/dL 74-106 N Performed by certified arch cushion press operator at [facility] BLOOD UREA [id number] 13:49:00* Test Item Value Reference Range Interpretation Comments BLOOD UREA NITROGEN (test code = BUN) 8 mg/dL 7-18 N 2 PHELBS GONE UP AND TRIED TO DRAW BLOOD PT SAID COME BACKINFORMED PAIGE Da Silva [facility] 02/19/19 1037 [id number] 13:49:00* Test Item Value Reference Range Interpretation Comments CREATININE (test code = CREAT) 0.90 mg/dL 0.7-1.3 N 2 PHELBS GONE UP AND TRIED TO DRAW BLOOD PT SAID COME BACKINFORMED PAIGE Da Silva [facility] 02/19/19 1037 CBC W/AUTO [id number] 13:02:00* Test Item Value Reference Range Interpretation [...] PT TO COME BACK LATER NOTIFIED PAIGE ALANISKP211/23/19 [id number] 11:50:00* Test Item Value Reference Range Interpretation Comments GLUBED (test code = GLUBED) 147 mg/dL 74-106 H Performed by certified arch cushion press operator at [facility] [id number] 10:37:00* Test Item Value Reference Range Interpretation Comments GLUBED (test code = GLUBED) 97 mg/dL 74-106 N Performed by certified arch cushion press operator at [facility] [id number] 21:43:00* Test Item Value Reference Range Interpretation Comments GLUBED (test code = GLUBED) 162 mg/dL 74-106 H Performed by certified arch cushion press operator at [facility] [id number] 16:06:00* Test Item Value Reference Range Interpretation Comments GLUBED (test code = GLUBED) 98 mg/dL 74-106 N Performed by certified arch cushion press operator at [facility] - XR CHEST 1 [id number] 14:36:00 FAX: Olegario Diaz MD [phone] [place]: St: ADM FAX: Iris Liao [phone] FAX: Riley Zavala DO [phone] Name: BREE ASHTON [facility] : 1975 Age/S: 43/M [address] [facility] Unit #: [id number] Loc: V.[address] [place] [address] Phys: Iris Liao NP Acct: [id number] Dis Date: Status: ADM IN ONE #: [phone] Exam Date: 02/18/2019 1339 FAX #: [phone] Reason: PICC TIP CONFIRMATION EXAMS: CPT CODE: [id number] XR CHEST 1 V 04915 REASON FOR EXAM: PICC TIP CONFIRMATION Exam Order Date: 02/18/2019 12:37 PM Ordering M.Ana: Iris Liao NP PROCEDURE: - XR CHEST [...] new finding from the prior exam. Location: [facility] Electronically Signed by Mulugeta Espinoza MD on at 1436 Reported and signed by: Mulugeta Espinoza MD CC: Olegario Diaz MD; Iris Liao NP; Riley Beckman DO Technologist: Ngozi LYON(R); Lucie Martinez(R) Trnscrd Date/Time/By: 01/29 (1436) : By: [email or web address] [facility] Print D/T: S: 02/18/2019 (1439) PAGE 1 Signed Report [id number] 12:20:00* Test Item Value Reference Range Interpretation Comments GLUBED (test code = GLUBED) 141 mg/dL 74-106 H Performed by certified arch cushion press operator at [facility] [id number] 07:15:00* Test Item Value Reference Range Interpretation Comments GLUBED (test code = GLUBED) 129 mg/dL 74-106 H Performed by certified arch cushion press operator at [facility] [id number] 00:21:00* Test Item Value Reference Range Interpretation Comments GLUBED (test code = GLUBED) 166 mg/dL 74-106 H Performed by certified arch cushion press operator at [facility] [id number] 20:50:00* Test Item Value Reference Range Interpretation Comments GLUBED (test code = GLUBED) 194 mg/dL 74-106 H Performed by certified arch cushion press operator at [facility] [id number] 18:19:00* Test Item Value Reference Range Interpretation Comments VANCOMYCIN (test code = VANCO) 25.9 UG/ML 5.0-45.0 N [id number] 16:41:00* Test Item Value Reference Range Interpretation Comments GLUBED (test code = GLUBED) 223 mg/dL 74-106 H Performed by certified arch cushion press operator at [facility] [id number] 13:22:00* Test Item Value Reference Range Interpretation Comments GLUBED (test code = GLUBED) 95 mg/dL 74-106 N Performed by certified arch cushion press operator at [facility] [id number] 13:22:00* Test Item Value Reference Range Interpretation Comments GLUBED (test code = GLUBED) 61 mg/dL 74-106 L Performed by certified arch cushion press operator at [facility] [id number] 13:22:00* Test Item Value Reference Range Interpretation Comments GLUBED (test code = GLUBED) 32 mg/dL 74-106 LL Test performed as P.O.C. by nursing staff.Performed by certified arch cushion press operator at [facility] [id number] 13:22:00* Test Item Value Reference Range Interpretation Comments GLUBED (test code = GLUBED) 28 mg/dL 74-106 LL Test performed as P.O.C. by nursing staff.[facility]~ [id number] 11:50:00* Test Item Value Reference Range Interpretation Comments GLUBED (test code = GLUBED) 104 mg/dL 74-106 N Performed by certified arch cushion press operator at [facility] CBC W/MANUAL [id number] 09:27:00* Test Item Value Reference Range Interpretation [...] code = IMMAT) 0 % 0-0 N [id number] 07:51:00* Test Item Value Reference Range Interpretation Comments GLUBED (test code = GLUBED) 244 mg/dL 74-106 H Performed by certified arch cushion press operator at [facility] BASIC METABOLIC [id number] 07:23:00* Test Item Value Reference Range Interpretation [...] CA) 7.9 mg/dL 8.5-10.1 L BASIC METABOLIC [id number] 07:13:00* Test Item Value Reference Range Interpretation [...] code = CA) mg/dL 8.5-10.1 CBC W/MANUAL [id number] 07:10:00* Test Item Value Reference Range Interpretation [...] MORPHOLOGY (test code = PLTMORPH) CBC W/MANUAL [id number] 07:10:00* Test Item Value Reference Range Interpretation [...] MORPHOLOGY (test code = PLTMORPH) CBC W/MANUAL [id number] 07:10:00* Test Item Value Reference Range Interpretation [...] MORPHOLOGY (test code = PLTMORPH) CBC W/MANUAL [id number] 07:09:00* Test Item Value Reference Range Interpretation [...] MORPHOLOGY (test code = PLTMORPH) CBC W/MANUAL [id number] 07:09:00* Test Item Value Reference Range Interpretation [...] MORPHOLOGY (test code = PLTMORPH) SED RATE [id number] 21:42:00* Test Item Value Reference Range Interpretation Comments SED RATE WESTERGREN (test code = SEDW) 76 mm/hr 0-15 H SED [id number] 21:42:00* Test Item Value Reference Range Interpretation Comments SED RATE (test code = SEDW) 76 mm/hr 0-15 H WINTROBE METHOD: NORMAL RANGE FOR MEN: 0-9 MM/HR WOMAN: 0-20 MM/HR [id number] 20:54:00* Test Item Value Reference Range Interpretation Comments GLUBED (test code = GLUBED) 345 mg/dL 74-106 H Performed by certified arch cushion press operator at [facility] [id number] 16:36:00* Test Item Value Reference Range Interpretation Comments GLUBED (test code = GLUBED) 37 mg/dL 74-106 LL Performed by certified arch cushion press operator at [facility] [id number] 16:30:00* Test Item Value Reference Range Interpretation Comments GLUBED (test code = GLUBED) 94 mg/dL 74-106 N Performed by certified arch cushion press operator at [facility] [id number] 12:04:00* Test Item Value Reference Range Interpretation Comments GLUBED (test code = GLUBED) 236 mg/dL 74-106 H Performed by certified arch cushion press operator at [facility] CBC W/MANUAL [id number] 08:49:00* Test Item Value Reference Range Interpretation [...] IMMAT) 0 % 0-0 N BASIC METABOLIC [id number] 08:29:00* Test Item Value Reference Range Interpretation [...] CA) 7.9 mg/dL 8.5-10.1 L CBC W/MANUAL [id number] 08:09:00* Test Item Value Reference Range Interpretation [...] MORPHOLOGY (test code = PLTMORPH) CBC W/MANUAL [id number] 08:09:00* Test Item Value Reference Range Interpretation [...] MORPHOLOGY (test code = PLTMORPH) CBC W/MANUAL [id number] 08:09:00* Test Item Value Reference Range Interpretation [...] MORPHOLOGY (test code = PLTMORPH) CBC W/MANUAL [id number] 08:09:00* Test Item Value Reference Range Interpretation [...] MORPHOLOGY (test code = PLTMORPH) CBC W/MANUAL [id number] 08:09:00* Test Item Value Reference Range Interpretation [...] PLTEST) PLATELET MORPHOLOGY (test code = PLTMORPH) [id number] 07:33:00* Test Item Value Reference Range Interpretation Comments GLUBED (test code = GLUBED) 315 mg/dL 74-106 H Performed by certified arch cushion press operator at [facility] [id number] 19:56:00* Test Item Value Reference Range Interpretation Comments GLUBED (test code = GLUBED) 90 mg/dL 74-106 N Performed by certified arch cushion press operator at [facility] [id number] 19:07:00* Test Item Value Reference Range Interpretation Comments GLUBED (test code = GLUBED) 107 mg/dL 74-106 H Performed by certified arch cushion press operator at [facility] [id number] 19:07:00* Test Item Value Reference Range Interpretation Comments GLUBED (test code = GLUBED) 49 mg/dL 74-106 LL [facility] [id number] 17:50:00* Test Item Value Reference Range Interpretation Comments POTASSIUM (test code = K) 3.0 mmol/L 3.5-5.1 L RE SULT VERIFIED BY REPEAT ANALYSIS [id number] 17:08:00* Test Item Value Reference Range Interpretation Comments GLUBED (test code = GLUBED) 66 mg/dL 74-106 L Performed by certified arch cushion press operator at [facility] [id number] 16:57:00* Test Item Value Reference Range Interpretation Comments GLUBED (test code = GLUBED) 76 mg/dL 74-106 N Performed by certified arch cushion press operator at [facility] [id number] 13:11:00* Test Item Value Reference Range Interpretation Comments POTASSIUM (test code = K) 5.2 mmol/L 3.5-5.1 H [id number] 11:49:00* Test Item Value Reference Range Interpretation Comments GLUBED (test code = GLUBED) 81 mg/dL 74-106 N Performed by certified arch cushion press operator at [facility] [id number] 09:39:00* Test Item Value Reference Range Interpretation Comments GLUBED (test code = GLUBED) 78 mg/dL 74-106 N Performed by certified arch cushion press operator at [facility] - MRI LOW EXT W/O CONT [id number] 09:36:00 FAX: Olegario Diaz MD [phone] [place]: St: ADM FAX: Heavenly Kerr DPM [phone] FAX: Riley Zavala DO [phone] Name: BREE ASHTON [facility] : 1975 Age/S: 43/M [address] [facility] Unit #: [id number] Loc: V.[address] [place] [address] Phys: Heavenly Null DPM Acct: [id number] Dis Date: Status: ADM IN [facility] #: [phone] Exam Date: 02/15/2019 0859 FAX #: [phone] Reason: cellulitis EXAMS: CPT CODE: [id number] [place] W/[place] [address] HISTORY: Cellu litis TECHNIQUE: Sagittal T1, sagittal [...] Null DPM; Riley Beckman DO Technologist: Lisy Martinez( R)(MR) Trnscrd Date/Time/By: 02/15/2019 (0936) : By: [email or web address] [facility] Print D/T: S: 02/15/2019 (0939) PAGE 1 Signed Report GLUBED 2019-02-15 07:22:00* Test Item Value Reference Range Interpretation Comments GLUBED (test code = GLUBED) 57 mg/dL 74-106 L Performed by certified arch cushion press operator at [facility] BASIC METABOLIC [id number] 05:15:00* Test Item Value Reference Range Interpretation Comments SODIUM (test code = NA) 136 mmol/L 136-145 N POTASSIUM (test code = K) 2.7 mmol/L 3.5-5.1 LL Re sults called to [id number] by DOT 02/15/19 0515Critical results verified and [...] CA) 8.3 mg/dL 8.5-10.1 L C REACTIVE [id number] 04:21:00* Test Item Value Reference Range Interpretation Comments C REACTIVE PROTEIN (test code = CRP) 27.10 mg/dL 0-0.3 H CBC W/MANUAL [id number] 04:05:00* Test Item Value Reference Range Interpretation [...] IMMAT) 0 % 0-0 N CBC W/MANUAL [id number] 03:30:00* Test Item Value Reference Range Interpretation [...] PLTEST) PLATELET MORPHOLOGY (test code = PLTMORPH) [id number] 20:26:00* Test Item Value Reference Range Interpretation Comments GLUBED (test code = GLUBED) 151 mg/dL 74-106 H Performed by certified arch cushion press operator at [facility] [id number] 17:12:00* Test Item Value Reference Range Interpretation Comments GLUBED (test code = GLUBED) 124 mg/dL 74-106 H Performed by certified arch cushion press operator at [facility] [id number] 17:07:00* Test Item Value Reference Range Interpretation Comments GLUBED (test code = GLUBED) 81 mg/dL 74-106 N Performed by certified arch cushion press operator at [facility] [id number] 12:13:00* Test Item Value Reference Range Interpretation Comments GLUBED (test code = GLUBED) 95 mg/dL 74-106 N Performed by certified arch cushion press operator at [facility] CBC W/MANUAL [id number] 08:15:00* Test Item Value Reference Range Interpretation [...] code = IMMAT) 0 % 0-0 N [id number] 07:18:00* Test Item Value Reference Range Interpretation Comments GLUBED (test code = GLUBED) 195 mg/dL 74-106 H Performed by certified arch cushion press operator at [facility] BASIC METABOLIC [id number] 07:16:00* Test Item Value Reference Range Interpretation [...] code = CA) 8.4 mg/dL 8.5-10.1 L [id number] 07:16:00* Test Item Value Reference Range Interpretation Comments MAGNESIUM (test code = MAG) 1.7 mg/dL 1.8-2.4 L CBC W/MANUAL [id number] 06:58:00* Test Item Value Reference Range Interpretation [...] MORPHOLOGY (test code = PLTMORPH) CBC W/MANUAL [id number] 06:58:00* Test Item Value Reference Range Interpretation [...] MORPHOLOGY (test code = PLTMORPH) CBC W/MANUAL [id number] 06:58:00* Test Item Value Reference Range Interpretation [...] MORPHOLOGY (test code = PLTMORPH) CBC W/MANUAL [id number] 06:58:00* Test Item Value Reference Range Interpretation [...] MORPHOLOGY (test code = PLTMORPH) CBC W/MANUAL [id number] 06:58:00* Test Item Value Reference Range Interpretation [...] MORPHOLOGY (test code = PLTMORPH) BASIC METABOLIC [id number] 06:56:00* Test Item Value Reference Range Interpretation [...] CALCIUM (test code = CA) mg/dL 8.5-10.1 [id number] 06:56:00* Test Item Value Reference Range Interpretation Comments MAGNESIUM (test code = MAG) mg/dL 1.8-2.4 [id number] 20:42:00* Test Item Value Reference Range Interpretation Comments GLUBED (test code = GLUBED) 261 mg/dL 74-106 H Performed by certified arch cushion press operator at [facility] CBC W/MANUAL [id number] 10:55:00* Test Item Value Reference Range Interpretation [...] MORPHOLOGY (test code = PLTMORPH) NORMAL URINALYSIS [id number] 10:38:00* Test Item Value Reference Range Interpretation [...] Clean Catch- XR FOOT 3 + V [id number] 10:33:00 Name: BREE ASHTON [facility] : 1975 Age/S:43 /M [address] [facility] Unit#:[id number] Loc: [place] [address] Phys: Chandan Cage MD Dis Date: PHONE #: [phone] Status: REG ER FAX #: [phone] Exam Date: 02/13/2019 Re ason: left foot swelling EXAMS: CPT CODE: [id number] XR FOOT 3 + V LT [address] CLINICAL HISTORY: left foot swelling TECHNIQUE: AP, [...] (1033) t.SDR.RR31 Orig Print D/T: S: 02/13/2019 (7740) PAGE 1 Signed Report LACTIC [id number] 10:28:00* Test Item Value Reference Range Interpretation Comments LACTIC ACID (test code = LACT) 1.6 MMOL/L 0.4-1.9 N BASIC METABOLIC [id number] 10:28:00* Test Item Value Reference Range Interpretation [...] CA) 8.7 mg/dL 8.4-10.2 N HEPATIC FUNCTION [id number] 10:28:00* Test Item Value Reference Range Interpretation [...] code = ALKP) 120 U/L 38-126 N [id number] 10:28:00* Test Item Value Reference Range Interpretation Comments TROPONIN-I (test code = TROPI) <0.015 ng/mL 0.00-0.056 N URINALYSIS [id number] 10:20:00* Test Item Value Reference Range Interpretation [...] HPF NONE Urine Source? Clean CatchBASIC METABOLIC [id number] 10:19:00* Test Item Value Reference Range Interpretation [...] CA) 8.7 mg/dL 8.4-10.2 N HEPATIC FUNCTION [id number] 10:19:00* Test Item Value Reference Range Interpretation [...] TOTAL (test code = ALKP) IUnit/L 45-117 [id number] 10:19:00* Test Item Value Reference Range Interpretation Comments TROPONIN-I (test code = TROPI) ng/mL 0-0.045 CBC W/MANUAL [id number] 10:13:00* Test Item Value Reference Range Interpretation [...] MORPHOLOGY (test code = PLTMORPH) CBC W/MANUAL [id number] 10:02:00* Test Item Value Reference Range Interpretation [...] MORPHOLOGY (test code = PLTMORPH) CBC W/MANUAL [id number] 10:02:00* Test Item Value Reference Range Interpretation [...] MORPHOLOGY (test code = PLTMORPH) CBC W/MANUAL [id number] 10:02:00* Test Item Value Reference Range Interpretation [...] MORPHOLOGY (test code = PLTMORPH) CBC W/MANUAL [id number] 10:02:00* Test Item Value Reference Range Interpretation [...] code = PLTMORPH) - XR CHEST 1 [id number] 09:56:00 Name: BREE ASHTON [facility] : 1975 Age/S:43 /M [address] [facility] Unit#:[id number] Loc: [place] [address] Phys: Tracy Cage MD Dis Date: PHONE #: [phone] Status: REG ER FAX #: [phone] Exam Date: 02/13/2019 Reason: CODE SEPSIS EXAMS: CPT CODE: [id number] XR CHEST 1 V 22711 REASON FOR EXAM: CODE SEPSIS Exam Order [...] cholecystectomy. IMPRESSION: No acute cardiopulmonary process. Location: [facility] Elect ronically Signed by Mulugeta Espinoza MD on 02/13/2019 at 0956 Reported and signed by: Mulugeta Espinoza MD CC: Tracy Cage MD; Keeley Beckman DO Technologist: Stone Lund RT(R)(CT) Trnscrpt Data: 02/13/2019 (0956) t.SDR.RR31 Orig Print D/T: S: 02/13/2019 (0935) PAGE 1 Signed Report [id number] 16:17:00* Test Item Value Reference Range Interpretation Comments GLUBED (test code = GLUBED) 187 mg/dL 74-106 H Performed by certified arch cushion press operator at [facility] [id number] 11:57:00* Test Item Value Reference Range Interpretation Comments GLUBED (test code = GLUBED) 147 mg/dL 74-106 H Performed by certified arch cushion press operator at [facility] [id number] 07:34:00* Test Item Value Reference Range Interpretation Comments GLUBED (test code = GLUBED) 110 mg/dL 74-106 H Performed by certified arch cushion press operator at [facility] CBC W/MANUAL [id number] 05:59:00* Test Item Value Reference Range Interpretation [...] IMMAT) 0 % 0-0 N BASIC METABOLIC [id number] 05:25:00* Test Item Value Reference Range Interpretation Comments SODIUM (test code = NA) 138 mmol/L 136-145 N POTASSIUM (test code = K) 2.7 mmol/L 3.5-5.1 LL Re sults called to [id number] by DOT 02/12/19 0525Critical results verified and read back [...] CA) 8.4 mg/dL 8.5-10.1 L CBC W/MANUAL [id number] 05:04:00* Test Item Value Reference Range Interpretation [...] MORPHOLOGY (test code = PLTMORPH) CBC W/MANUAL [id number] 05:04:00* Test Item Value Reference Range Interpretation [...] MORPHOLOGY (test code = PLTMORPH) CBC W/MANUAL [id number] 05:04:00* Test Item Value Reference Range Interpretation [...] MORPHOLOGY (test code = PLTMORPH) CBC W/MANUAL [id number] 05:04:00* Test Item Value Reference Range Interpretation [...] MORPHOLOGY (test code = PLTMORPH) CBC W/MANUAL [id number] 05:04:00* Test Item Value Reference Range Interpretation [...] interpreted taking into account the patients history. [id number] 19:42:00* Test Item Value Reference Range Interpretation Comments GLUBED (test code = GLUBED) 131 mg/dL 74-106 H Performed by certified arch cushion press operator at [facility] LACTIC [id number] 19:38:00* Test Item Value Reference Range Interpretation Comments LACTIC ACID (test code = LACT) 0.7 mmol/L 0.4-1.9 N [id number] 18:44:00* Test Item Value Reference Range Interpretation Comments GLUBED (test code = GLUBED) 129 mg/dL 74-106 H Performed by certified arch cushion press operator at [facility] [id number] 16:34:00* Test Item Value Reference Range Interpretation Comments GLUBED (test code = GLUBED) 66 mg/dL 74-106 L Performed by certified arch cushion press operator at [facility] [id number] 12:07:00* Test Item Value Reference Range Interpretation Comments GLUBED (test code = GLUBED) 285 mg/dL 74-106 H Performed by certified arch cushion press operator at [facility] - XR CHEST 1 [id number] 08:53:00 FAX: Faith Cook MD [phone] [place]: B St: ADM FAX: Raphael BeckmanRiley [phone] Name: BREE ASHTON [facility] : 1975 Age/S: 43/M [address] [facility] Unit #: [id number] Loc: V.[address] [place] [address] Phys: Faith Roy MD Acct: [id number] Dis Date: Status: ADM IN PHONE #: [phone] Exam Date: 02/11/2019 0830 FAX #: [phone] Reason: Leukocytosis EXAMS: CPT CODE: [id number] XR CHEST 1 V 22783 HISTORY: Leukocytosis. COMPARISON: January 12, 2018. Location: [facility]. No acute infiltrates, effusion or congestion is noted. Mild cardiomegaly. IMPRESSION: No acute infiltrates, effusion or congestion. at 0853 Reported and signed by: Alexandr Pacheco M.D. CC: Faith Roy MD; Riley Beckman DO Technologist: BERNABE NEWELL JR; Юлия Diez Trnscrd Date/Time/By: 02/11/2019 (0853) : By: [email or web address] Orig Print D/T: S: 02/11/2019 (0856) PAGE 1 Signed Report [id number] 07:52:00* Test Item Value Reference Range Interpretation Comments GLUBED (test code = GLUBED) 293 mg/dL 74-106 H Performed by certified arch cushion press operator at [facility] CBC W/MANUAL [id number] 06:45:00* Test Item Value Reference Range Interpretation [...] IMMAT) 0 % 0-0 N BASIC METABOLIC [id number] 06:37:00* Test Item Value Reference Range Interpretation [...] CA) 8.6 mg/dL 8.5-10.1 N BASIC METABOLIC [id number] 06:31:00* Test Item Value Reference Range Interpretation [...] code = CA) mg/dL 8.5-10.1 CBC W/MANUAL [id number] 06:18:00* Test Item Value Reference Range Interpretation [...] MORPHOLOGY (test code = PLTMORPH) CBC W/MANUAL [id number] 06:18:00* Test Item Value Reference Range Interpretation [...] MORPHOLOGY (test code = PLTMORPH) CBC W/MANUAL [id number] 06:18:00* Test Item Value Reference Range Interpretation [...] MORPHOLOGY (test code = PLTMORPH) CBC W/MANUAL [id number] 06:18:00* Test Item Value Reference Range Interpretation [...] MORPHOLOGY (test code = PLTMORPH) CBC W/MANUAL [id number] 06:18:00* Test Item Value Reference Range Interpretation [...] PLATELET MORPHOLOGY (test code = PLTMORPH) URINALYSIS [id number] 02:01:00* Test Item Value Reference Range Interpretation [...] BE COLLECTED BY NURSEDRUGS OF ABUSE SCREEN [id number] 02:01:00* Test Item Value Reference Range Interpretation [...] 02/10/192142Urine Source? VoidedSAMPLE TO BE COLLECTED BY NURSEURINALYSIS [id number] 01:45:00* Test Item Value Reference Range Interpretation [...] FEW NO SPECIMEN RECEIVED IN LAB V.LAB.TS1 02/10/192142Urine Source? VoidedSAMPLE TO BE COLLECTED BY NURSEDRUGS OF ABUSE SCREEN [id number] 01:45:00* Test Item Value Reference Range Interpretation [...] 2143Urine Source? VoidedSAMPLE TO BE COLLECTED BY [id number] 23:31:00* Test Item Value Reference Range Interpretation Comments GLUBED (test code = GLUBED) 223 mg/dL 74-106 H Performed by certified arch cushion press operator at [facility] [id number] 18:09:00* Test Item Value Reference Range Interpretation Comments GLUBED (test code = GLUBED) 201 mg/dL 74-106 H Performed by certified arch cushion press operator at [facility] [id number] 11:27:00* Test Item Value Reference Range Interpretation Comments GLUBED (test code = GLUBED) 291 mg/dL 74-106 H Performed by certified arch cushion press operator at [facility] [id number] 08:25:00* Test Item Value Reference Range Interpretation Comments GLUBED (test code = GLUBED) 288 mg/dL 74-106 H Performed by certified arch cushion press operator at [facility] - XR ABDOMEN AP 1 [id number] 08:01:00 FAX: Bobby Self MD [place]: B St: ADM FAX: Raphael BeckmanMineshDylan JUNG [phone] Name: BREE ASHTON [facility] : 1975 Age/S: 43/M [address] Unit #: [id number] Loc: V.3017 [place] [address] Phys: Bobby Self MD Acct: [id number] Dis Date: Status: ADM IN PHONE #: [phone] Exam Date: 02/10/2019 0805 FAX #: [phone] Reason: abdominal pain nausea and vomiting EXAMS: CPT CODE: [id number] XR ABDOMEN AP 1 V 85508 HISTORY: abdominal pain nausea and vomiting TECHNIQUE: [...] DO Technologist: RT LATA(Kelly) Trnscrd Date/Time/By: 02/10/2019 (08) : By: [email or web address] Orig Print D/T: S: [...] into account the patients history. BASIC METABOLIC [id number] 00:47:00* Test Item Value Reference Range Interpretation [...] CA) 9.1 mg/dL 8.5-10.1 N HEPATIC FUNCTION [id number] 00:47:00* Test Item Value Reference Range Interpretation [...] reference range due to change in reagent. [id number] 00:47:00* Test Item Value Reference Range Interpretation Comments LIPASE (test code = LIP) < 10 U/L 73.0-393.0 L CBC W/O [id number] 00:11:00* Test Item Value Reference Range Interpretation [...] code = MPV) 9.7 fL 6.7-11.0 N [id number] 07:24:00* Test Item Value Reference Range Interpretation Comments GLUBED (test code = GLUBED) 269 mg/dL 74-106 H Performed by certified arch cushion press operator at [facility] [id number] 20:19:00* Test Item Value Reference Range Interpretation Comments GLUBED (test code = GLUBED) 199 mg/dL 74-106 H Performed by certified arch cushion press operator at [facility] [id number] 16:56:00* Test Item Value Reference Range Interpretation Comments GLUBED (test code = GLUBED) 153 mg/dL 74-106 H Performed by certified arch cushion press operator at [facility] [id number] 11:42:00* Test Item Value Reference Range Interpretation Comments GLUBED (test code = GLUBED) 231 mg/dL 74-106 H Performed by certified arch cushion press operator at [facility] [id number] 08:17:00* Test Item Value Reference Range Interpretation Comments GLUBED (test code = GLUBED) 160 mg/dL 74-106 H Performed by certified arch cushion press operator at [facility] CBC W/AUTO [id number] 06:43:00* Test Item Value Reference Range Interpretation [...] NRBC#) 0.00 K/mm3 0.0-0.1 N BASIC METABOLIC [id number] 06:43:00* Test Item Value Reference Range Interpretation [...] CA) 8.8 mg/dL 8.5-10.1 N BASIC METABOLIC [id number] 06:26:00* Test Item Value Reference Range Interpretation [...] (test code = CA) mg/dL 8.5-10.1 URINALYSIS [id number] 23:07:00* Test Item Value Reference Range Interpretation [...] Urine Source? Clean CatchDRUGS OF ABUSE SCREEN [id number] 23:07:00* Test Item Value Reference Range Interpretation [...] NEGATIVE <300 ng/mL Urine Source? Clean CatchURINALYSIS [id number] 22:44:00* Test Item Value Reference Range Interpretation [...] NEGATIVE UA PH DIPSTICK (test code = JONH) 6.5 5.0-8.0 UA PROTEIN DIPSTICK (test code [...] Urine Source? Clean CatchDRUGS OF ABUSE SCREEN [id number] 22:44:00* Test Item Value Reference Range Interpretation [...] <300 ng/mL Urine Source? Clean CatchBASIC METABOLIC [id number] 18:12:00* Test Item Value Reference Range Interpretation [...] CA) 10.0 mg/dL 8.5-10.1 N HEPATIC FUNCTION [id number] 18:12:00* Test Item Value Reference Range Interpretation [...] reference range due to change in reagent. [id number] 18:12:00* Test Item Value Reference Range Interpretation Comments LIPASE (test code = LIP) < 10 U/L 73.0-393.0 L BASIC METABOLIC [id number] 18:04:00* Test Item Value Reference Range Interpretation [...] code = CA) mg/dL 8.5-10.1 HEPATIC FUNCTION [id number] 18:04:00* Test Item Value Reference Range Interpretation [...] TOTAL (test code = ALKP) IUnit/L 45-117 [id number] 18:04:00* Test Item Value Reference Range Interpretation Comments LIPASE (test code = LIP) U/L 73.0-393.0 CBC W/O [id number] 18:00:00* Test Item Value Reference Range Interpretation [...] code = MPV) 10.1 fL 6.7-11.0 N [id number] 17:11:00* Test Item Value Reference Range Interpretation Comments GLUBED (test code = GLUBED) 108 mg/dL 74-106 H Performed by certified arch cushion press operator at [facility] [id number] 14:49:00 RUN DATE: 12/21/18 [employer] [facility] PAGE 1 RUN TIME: 1449 Specimen Inqui ry RUN USER: INTERFACE PATIENT: BREE ASHTON ACCT #: [id number] LOC: Jason3SDELIA U #: [id number] AGE/SX: 43/M ROOM: [facility] RE12/16/18REG DR: Olegario Diaz MD : 75 BED: A DIS: 12/19/18 STATUS: DIS IN TLOC: SPEC #: [id number] RECD: 12/20/18 STATUS: SOUIsis REQ #: [id number] HUY: 12/18/18- [facility] DR: Sav Coffey MD ENTERED: 12/20/18 SP TYPE: NIKITA TIM DR: Levi Natarajan i, MD, Shao-Chun DOORDERED: GROSS COPIES TO: Levi Lakhani MD [address], [address] [place] [address] Sav Coffey MD [address] [place] [address] Leslye Beckmansuma JUNG [address] [place] [address] MARKERS: ABNORMAL TISSUE, GALLBL ADDER PROCEDURES: LINDA (12/21/18-1158) TISSUES: GALLBLADDER, NOS CLINICAL HISTORY COLLECTION DATE: 12/18/18 CHOLECYSTITIS FIN AL DIAGNOSIS Gallbladder, cholecystectomy: PATCHY MILD CHRONIC ACALCUL OUS CHOLECYSTITIS NEGATIVE FOR MALIGNANCY RRB/sm A 61214 CONTINUED ON NEXT PAGE RUN DATE : 12/21/18 [facility] PAGE 2 RUN TIME: 1449 Specimen Inquiry RUN USER: INTERFACE SPEC #: [id number] PATIENT: BREE ASHTON #V [id number] (Continued) MACROSCOPIC The specimen is r eceived [...] thickness. No foc al lesions are identified. [facility] Pharmacy tissue is submitted in a single violeta sette. GROSS PERFORMED AT [facility] [address] [place] [address] [phone] MICROSCOPIC All of the stains, including any controls performed, st ain appropriately. MICROSCOPIC PERFORMED AT [facility] [address] [place] [address] [phone] PERFORMING SITE Diagnosis performed at: [facility], [place] [address] [place] [address] Signed SIGNATMARIANO E ON FILE Dino Patton MD 12/21/18 1449 END OF REPORT [id number] 11:45:00* Test Item Value Reference Range Interpretation Comments GLUBED (test code = GLUBED) 238 mg/dL 74-106 H Performed by certified arch cushion press operator at [facility] BASIC METABOLIC [id number] 08:28:00* Test Item Value Reference Range Interpretation [...] code = CA) 8.2 mg/dL 8.5-10.1 L [id number] 08:28:00* Test Item Value Reference Range Interpretation Comments MAGNESIUM (test code = MAG) 1.5 mg/dL 1.8-2.4 L BASIC METABOLIC [id number] 08:21:00* Test Item Value Reference Range Interpretation [...] CALCIUM (test code = CA) mg/dL 8.5-10.1 [id number] 08:21:00* Test Item Value Reference Range Interpretation Comments MAGNESIUM (test code = MAG) mg/dL 1.8-2.4 CBC W/AUTO [id number] 07:56:00* Test Item Value Reference Range Interpretation [...] DIFF REQUIRED (test code = MDIFF) NO [id number] 07:38:00* Test Item Value Reference Range Interpretation Comments GLUBED (test code = GLUBED) 277 mg/dL 74-106 H Performed by certified arch cushion press operator at [facility] [id number] 20:34:00* Test Item Value Reference Range Interpretation Comments GLUBED (test code = GLUBED) 165 mg/dL 74-106 H Performed by certified arch cushion press operator at [facility] [id number] 19:18:00* Test Item Value Reference Range Interpretation Comments GLUBED (test code = GLUBED) 203 mg/dL 74-106 H Performed by certified arch cushion press operator at [facility] BASIC METABOLIC [id number] 11:47:00* Test Item Value Reference Range Interpretation [...] mg/dL 8.5-10.1 L PT IN SURGERY PAIGE JOI2053 V.LAB.2 12/18/18 [id number] 11:42:00* Test Item Value Reference Range Interpretation Comments GLUBED (test code = GLUBED) 360 mg/dL 74-106 H Performed by certified arch cushion press operator at [facility] BASIC METABOLIC [id number] 11:41:00* Test Item Value Reference Range Interpretation [...] = CA) mg/dL 8.5-10.1 PT IN SURGERY RN CUC4427 V.LAB.[facility] 12/18/18 0926CBC W/AUTO [id number] 11:11:00* Test Item Value Reference Range Interpretation [...] = MDIFF) NO PT IN SURGERY RN MPH8914 V.LAB.KP2 12/18/18 4128ENGVFJ3715-16-04 03:55:00* Test Item Value Reference Range Interpretation Comments GLUBED (test code = GLUBED) 269 mg/dL 74-106 H Performed by certified arch cushion press operator at [facility] [id number] 23:58:00* Test Item Value Reference Range Interpretation Comments GLUBED (test code = GLUBED) 233 mg/dL 74-106 H Performed by certified arch cushion press operator at [facility] [id number] 09:16:00* Test Item Value Reference Range Interpretation Comments GLUBED (test code = GLUBED) 179 mg/dL 74-106 H Performed by certified arch cushion press operator at [facility] BASIC METABOLIC [id number] 06:40:00* Test Item Value Reference Range Interpretation Comments SODIUM (test code = NA) 141 mmol/L 136-145 N POTASSIUM (test code = K) 2.8 mmol/L 3.5-5.1 LL Re sults called to [place] [address] by NIKI 12/17/18 0639Critical results verified and read back [...] code = CA) 8.3 mg/dL 8.5-10.1 L [id number] 06:40:00* Test Item Value Reference Range Interpretation Comments MAGNESIUM (test code = MAG) 1.6 mg/dL 1.8-2.4 L B-TYPE NATRIURETIC [id number] 06:34:00* Test Item Value Reference Range Interpretation Comments B-TYPE NATRIURETIC PEPTIDE (test code = BNP) 128.51 pgram/mL 0-100 H CBC W/AUTO [id number] 05:33:00* Test Item Value Reference Range Interpretation [...] code = NRBC#) 0.00 K/mm3 0.0-0.1 N [id number] 02:55:00* Test Item Value Reference Range Interpretation Comments GLUBED (test code = GLUBED) 102 mg/dL 74-106 N Performed by certified arch cushion press operator at [facility] [id number] 21:18:00* Test Item Value Reference Range Interpretation Comments GLUBED (test code = GLUBED) 224 mg/dL 74-106 H Performed by certified arch cushion press operator at [facility] [id number] 16:43:00* Test Item Value Reference Range Interpretation Comments GLUBED (test code = GLUBED) 158 mg/dL 74-106 H Performed by certified arch cushion press operator at [facility] DRUGS OF ABUSE SCREEN [id number] 14:45:00* Test Item Value Reference Range Interpretation [...] NEGATIVE <300 ng/mL DRUGS OF ABUSE SCREEN [id number] 14:24:00* Test Item Value Reference Range Interpretation [...] ng/mL - HEPA IMAG INCL GB W [id number] 14:14:00 FAX: Leia Kendrick MSN [place]: B St: ADM FAX: Bobyb Self MD FAX: Riley Zavala DO [phone] Name: BREE ASHTON [facility] : 1975 Age/S: 43/M [address] [facility] Unit #: [id number] Loc: V.3070 [place] [address] Phys: Leia Kendrick MSN Acct: [id number] Dis Date: Status: ADM IN ONE #: [phone] Exam Date: 12/16/2018 1412 FAX #: [phone] Reason: recurrent n/v EXAMS: CPT CODE: [id number] PA IMAG INCL GB W PHA 44386 HISTORY: recur rent n/v EXAM: NUCLEAR MEDICINE [...] DO Technologist: ESAU ASHRAF Trnscrd Date/Time/By: 12/16/2018 (1413) : By: Aden.[email or web address] Orig Print D/T: S: 12/16/2018 (9674) PAGE 1 Signed Report [id number] 11:12:00* Test Item Value Reference Range Interpretation Comments GLUBED (test code = GLUBED) 133 mg/dL 74-106 H Performed by certified arch cushion press operator at [facility] - US ABDOMEN [id number] 10:25:00 Name: BREE ASHTON [facility] : 1975 Age/S: 43 / M [address] Unit #: [id number] Loc: [facility] [place] [address] Phys: Leia Kendrick Acct: [id number] Dis Date: Status: ADM IN PHONE #: [phone] Exam Date: 12/16/2018 09 FAX #: [phone] Reason: n/v EXAMS: CPT CODE: [id number] US ABDOMEN COMPLETE [address] REASON FOR EXAM: n/v EXAM ORDER DATE: 12/16/2018 8:46 AM Attending MSammie: Leia Kendrick PROCEDURE: - US ABDOMEN COMPLETE [...] 1 Signed Report (CONTINUED) Name: BREE ASHTON [facility] : 1975 Age/S: 43 / M [address] [facility] Unit #: [id number] Loc: [place] [address] Phys: Leia Kendrick MSN Acct: [id number] Dis Date: Status: ADM IN PHONE #: [phone] Exam Date: 12/16 0940 FAX #: [phone] Reason: n/v EXAMS: CPT CODE: [id number] US ABDOMEN COMPLETE 76 700 <Continued> Left [...] MD; Riley Beckman DO Technologist: NOEMY OLVERA RT(R),CATALINA Trnpab Date/Time: 12/16/2018 (1025) t.SDR.RR31 Orig Print D/T: S: 12/16/2018 (1025) Probe: PAGE 2 Signed Report [id number] 07:04:00* Test Item Value Reference Range Interpretation Comments GLUBED (test code = GLUBED) 177 mg/dL 74-106 H Performed by certified arch cushion press operator at [facility] URINALYSIS [id number] 00:25:00* Test Item Value Reference Range Interpretation [...] FEW A Urine Source? Clean CatchBASIC METABOLIC [id number] 00:22:00* Test Item Value Reference Range Interpretation [...] CA) 8.8 mg/dL 8.5-10.1 N HEPATIC FUNCTION [id number] 00:22:00* Test Item Value Reference Range Interpretation [...] reference range due to change in reagent. [id number] 00:22:00* Test Item Value Reference Range Interpretation Comments LIPASE (test code = LIP) < 10 U/L 73.0-393.0 L [id number] 00:22:00* Test Item Value Reference Range Interpretation Comments TROPONIN-I (test code = TROPI) <0.015 ng/mL 0-0.045 N BASIC METABOLIC [id number] 00:12:00* Test Item Value Reference Range Interpretation [...] code = CA) mg/dL 8.5-10.1 HEPATIC FUNCTION [id number] 00:12:00* Test Item Value Reference Range Interpretation [...] TOTAL (test code = ALKP) IUnit/L 45-117 [id number] 00:12:00* Test Item Value Reference Range Interpretation Comments LIPASE (test code = LIP) U/L 73.0-393.0 [id number] 00:12:00* Test Item Value Reference Range Interpretation Comments TROPONIN-I (test code = TROPI) ng/mL 0-0.045 CBC W/O [id number] 00:06:00* Test Item Value Reference Range Interpretation [...] MPV) 10.2 fL 6.7-11.0 N BASIC METABOLIC [id number] 08:09:00* Test Item Value Reference Range Interpretation [...] CA) 9.0 mg/dL 8.5-10.1 N HEPATIC FUNCTION [id number] 08:09:00* Test Item Value Reference Range Interpretation [...] reference range due to change in reagent. [id number] 08:09:00* Test Item Value Reference Range Interpretation Comments LIPASE (test code = LIP) < 10 U/L 73.0-393.0 L [id number] 08:09:00* Test Item Value Reference Range Interpretation Comments TROPONIN-I (test code = TROPI) <0.015 ng/mL 0-0.045 N BASIC METABOLIC [id number] 07:52:00* Test Item Value Reference Range Interpretation [...] code = CA) mg/dL 8.5-10.1 HEPATIC FUNCTION [id number] 07:52:00* Test Item Value Reference Range Interpretation [...] TOTAL (test code = ALKP) IUnit/L 45-117 [id number] 07:52:00* Test Item Value Reference Range Interpretation Comments LIPASE (test code = LIP) U/L 73.0-393.0 [id number] 07:52:00* Test Item Value Reference Range Interpretation Comments TROPONIN-I (test code = TROPI) ng/mL 0-0.045 CBC W/O [id number] 07:40:00* Test Item Value Reference Range Interpretation [...] = MPV) 10.5 fL 6.7-11.0 N POCT-GLUCOSE [id number] 17:19:00* Test Item Value Reference Range Interpretation Comments POC-GLUCOSE METER (BEAKER) (test code = 1538) 266 mg/dL 70-110 H TESTED AT [facility] [address] [facility] [address] POCT-GLUCOSE [id number] 12:17:00* Test Item Value Reference Range Interpretation Comments POC-GLUCOSE METER (BEAKER) (test code = 1538) 240 mg/dL 70-110 H TESTED AT [facility] [address] [facility] [address] POCT-GLUCOSE [id number] 08:12:00* Test Item Value Reference Range Interpretation Comments POC-GLUCOSE METER (BEAKER) (test code = 1538) 184 mg/dL 70-110 H TESTED AT [facility] [address] [facility] [address] [id number] 06:18:00* Test Item Value Reference Range Interpretation Comments PHOSPHORUS (BEAKER) (test code = 604) 2.2 mg/dL 2.3-4.7 L [id number] 06:18:00* Test Item Value Reference Range Interpretation Comments MAGNESIUM (BEAKER) (test code = 627) 1.6 mg/dL 1.6-2.6 BASIC METABOLIC [id number] 06:18:00* Test Item Value Reference Range Interpretation [...] DIALYSIS PATIENTS. CBC W/PLT COUNT & AUTO [id number] 06:16:00* Test Item Value Reference Range Interpretation [...] code = 2801) 0 % 0-1 POCT-GLUCOSE [id number] 21:15:00* Test Item Value Reference Range Interpretation Comments POC-GLUCOSE METER (BEAKER) (test code = 1538) 307 mg/dL 70-110 H Notified RN or MD Patient refused repeat test/TESTED AT [facility] [address] [facility] [address] HEMOGLOBIN [id number] 19:48:00* Test Item Value Reference Range Interpretation Comments HEMOGLOBIN A1C (BEAKER) (test code = 368) 8.4 % 4.3-6.1 H LIPID [id number] 16:17:00* Test Item Value Reference Range Interpretation [...] High 160-189 Very High >=190 BASIC METABOLIC [id number] 16:17:00* Test Item Value Reference Range Interpretation [...] NOT APPLICABLE FOR DIALYSIS PATIENTS. HEPATIC FUNCTION [id number] 16:17:00* Test Item Value Reference Range Interpretation [...] U/L 6-55 CBC W/PLT COUNT & AUTO [id number] 16:07:00* Test Item Value Reference Range Interpretation [...] code = 2801) 0 % 0-1 POCT-GLUCOSE [id number] 16:01:00* Test Item Value Reference Range Interpretation Comments POC-GLUCOSE METER (BEAKER) (test code = 1538) 265 mg/dL 70-110 H TESTED AT [facility] [address] [facility] [address] POCT-GLUCOSE [id number] 12:34:00* Test Item Value Reference Range Interpretation Comments POC-GLUCOSE METER (BEAKER) (test code = 1538) 271 mg/dL 70-110 H TESTED AT [place] [address] [facility] [address] Urine color xtiqhjofvyzqs8231-78-25 08:40:00* Test Item Value Reference Range Interpretation Comments Urine Color (test code = 5778-6) YELLOW [facility] mwuylrf4958-57-63 08:40:00* Test Item Value Reference Range Interpretation Comments Urine Clarity (test code = 04649-9) CLEAR [facility] by Test strip 2018-11-24 08:40:00* Test Item Value Reference Range Interpretation Comments Urine Specific [place] (test code = 5811-5) 1.025 [facility] pH measurement by automated test [id number] 08:40:00* Test Item Value Reference Range Interpretation Comments Urine pH (test code = 85561-1) 6 [facility] leukocyte esterase detection by automated test svnix3601-09-70 08:40:00* Test Item Value Reference Range Interpretation Comments Urine Leukocyte Esterase (test code = 64048-6) NEGATIVE [facility] nitrite detection by automated test [id number] 08:40:00* Test Item Value Reference Range Interpretation Comments Urine Nitrite (test code = 01038-6) NEGATIVE [facility] protein detection by automated test glseb4358-27-64 08:40:00* Test Item Value Reference Range Interpretation Comments Urine Protein (test code = 59250-4) NEGATIVE [facility] glucose detection by automated test vvksp3290-08-69 08:40:00* Test Item Value Reference Range Interpretation Comments Urine Glucose (UA) (test code = 80510-5) NEGATIVE [facility] ketones detection by automated test zkxog5931-58-05 08:40:00* Test Item Value Reference Range Interpretation Comments Urine Ketones (test code = 38200-8) 1+ [facility] urobilinogen measurement by test strip (mass/volume)2018-11-24 08:40:00* Test Item Value Reference Range Interpretation Comments Urine Urobilinogen (test code = 58199-6) 0.2 [facility] total bilirubin aooutdfuf7311-50-93 08:40:00* Test Item Value Reference Range Interpretation Comments Urine Bilirubin (test code = 1977-8) NEGATIVE [facility] erythrocytes efmrnivuf5994-83-21 08:40:00* Test Item Value Reference Range Interpretation Comments Urine Blood (test code = 84114-2) NEGATIVE [facility]Autom[facility] urine sediment leukocyte count by microscopy (number/high power field)2018-11-24 08:40:00* Test Item Value Reference Range Interpretation Comments Urine WBC (test code = 5821-4) 6-10 [facility] HospitalErythrocytes detection in urine sediment by light wglydexawy5130-79-75 08:40:00* Test Item Value Reference Range Interpretation Comments Urine RBC (test code = 03152-2) 0-5 [facility] HospitalBacteria detection in urine sediment by light jgpungsdel3394-64-21 08:40:00* Test Item Value Reference Range Interpretation Comments Urine Bacteria (test code = 45370-6) MODERATE [facility] HospitalEpithelial cells detection in urine sediment by light ezzxfjphfl2532-66-30 08:40:00* Test Item Value Reference Range Interpretation Comments Urine Epithelial Cells (test code = 26321-0) FEW [facility] 1 VEW - [id number] 18:41:00 [facility] [address] [place] [address] Patient Name: BREE ASHTON MR #: [id number] : 1975 Age/Sex: 42/M Req #: [id number] Adm Physician: ISACC JAVED MD Ordered by: NEIL PEREZ MD Report #: [id number] Location: [facility] Room/Bed: [place] [address] Procedure: [id number] HOPD/CXR 1 VEW - HOPD Exam Date: 11/22/18 Exam Time: 1755 REPORT STATUS: Signed EXA MINATION: [facility] COM[facility]: None INDICATION: Hemateme sis [id number] DISCUSSION: Frontal view of the chest [...] on 11/22/181843 COPY TO: NEIL PEREZ MD [id number] 11:31:00* Test Item Value Reference Range Interpretation Comments GLUBED (test code = GLUBED) 163 mg/dL 74-106 H Performed by certified arch cushion press operator at [facility] [id number] 05:52:00* Test Item Value Reference Range Interpretation Comments GLUBED (test code = GLUBED) 339 mg/dL 74-106 H Performed by certified arch cushion press operator at [facility] BASIC METABOLIC [id number] 05:04:00* Test Item Value Reference Range Interpretation [...] code = CA) 8.6 mg/dL 8.5-10.1 N [id number] 05:04:00* Test Item Value Reference Range Interpretation Comments PHOSPHORUS (test code = PHOS) 2.5 mg/dL 2.5-4.9 N [id number] 05:04:00* Test Item Value Reference Range Interpretation Comments MAGNESIUM (test code = MAG) 1.7 mg/dL 1.8-2.4 L CBC W/AUTO [id number] 04:58:00* Test Item Value Reference Range Interpretation [...] (test code = MDIFF) NO BASIC METABOLIC [id number] 04:54:00* Test Item Value Reference Range Interpretation [...] CALCIUM (test code = CA) mg/dL 8.5-10.1 [id number] 04:54:00* Test Item Value Reference Range Interpretation Comments PHOSPHORUS (test code = PHOS) mg/dL 2.5-4.9 [id number] 04:54:00* Test Item Value Reference Range Interpretation Comments MAGNESIUM (test code = MAG) mg/dL 1.8-2.4 [id number] 21:18:00* Test Item Value Reference Range Interpretation Comments GLUBED (test code = GLUBED) 363 mg/dL 74-106 H Performed by certified arch cushion press operator at [facility] [id number] 18:20:00* Test Item Value Reference Range Interpretation Comments GLYCOSYLATED HEMOGLOBIN (HA1C) (test code = GLYHGB) 9.0 % HbA1 4. 8-6.0 H ESTIMATED AVERAGE GLUCOSE (test code = EAG) 212 MG/DL [id number] 17:42:00* Test Item Value Reference Range Interpretation Comments GLUBED (test code = GLUBED) 216 mg/dL 74-106 H Performed by certified arch cushion press operator at [facility] [id number] 13:09:00* Test Item Value Reference Range Interpretation Comments GLUBED (test code = GLUBED) 209 mg/dL 74-106 H Performed by certified arch cushion press operator at [facility] LACTIC [id number] 08:53:00* Test Item Value Reference Range Interpretation [...] taking into account the patients history. PROTHROMBIN [id number] 07:23:00* Test Item Value Reference Range Interpretation [...] (2.5-3.5) IS PATIENT ON ANTICOAGULANTS? NTHROMBOPLASTIN TIME [id number] 07:23:00* Test Item Value Reference Range Interpretation Comments THROMBOPLASTIN TIME PARTIAL (test code = PTT) 26.2 seconds 25.0-36. 5 N IS PATIENT ON ANTICOAGULANTS? NBASIC METABOLIC [id number] 06:41:00* Test Item Value Reference Range Interpretation [...] CA) 9.7 mg/dL 8.5-10.1 N HEPATIC FUNCTION [id number] 06:41:00* Test Item Value Reference Range Interpretation [...] reference range due to change in reagent. [id number] 06:41:00* Test Item Value Reference Range Interpretation Comments LIPASE (test code = LIP) 16 U/L 73.0-393.0 L [id number] 06:41:00* Test Item Value Reference Range Interpretation Comments TROPONIN-I (test code = TROPI) <0.015 ng/mL 0-0.045 N BASIC METABOLIC [id number] 06:27:00* Test Item Value Reference Range Interpretation [...] code = CA) mg/dL 8.5-10.1 HEPATIC FUNCTION [id number] 06:27:00* Test Item Value Reference Range Interpretation [...] TOTAL (test code = ALKP) IUnit/L 45-117 [id number] 06:27:00* Test Item Value Reference Range Interpretation Comments LIPASE (test code = LIP) U/L 73.0-393.0 [id number] 06:27:00* Test Item Value Reference Range Interpretation Comments TROPONIN-I (test code = TROPI) ng/mL 0-0.045 POC LACTIC [id number] 06:23:00* Test Item Value Reference Range Interpretation Comments POC LACTIC ACID (test code = POCLAC) 1.46 MMOL/L 0.4-2.2 N CBC W/O [id number] 06:22:00* Test Item Value Reference Range Interpretation [...] = MPV) 11.6 fL 6.7-11.0 H GASTRIC [id number] 00:53:00 [place] [address] Patient Name: BREE ASHTON MR #: [id number] : 1975 Age/Sex: 42/M Req #: [id number] Adm Physician: Ordered by: TAVIA GARCIA MD Report #: [id number] Location: [place] Room/Bed: Procedure: N M/GASTRIC EMPTYING Exam Date: Exam Time: REPORT STATUS: Signed Solid-phase gastric emptying study Reason for examination: GERD with esophagitis; gastritis The protocol used for this study is based on the Consensus Recommendations for Gastric Scintigraphy by the [place] [employer] and the Society [...] on 09/21/1856 COPY TO: TAVIA GARCIA MD [id number] 11:39:00* Test Item Value Reference Range Interpretation Comments GLUBED (test code = GLUBED) 102 mg/dL 74-106 N Performed by certified arch cushion press operator at [facility] BASIC METABOLIC [id number] 11:27:00* Test Item Value Reference Range Interpretation [...] CA) 8.6 mg/dL 8.5-10.1 N CBC W/AUTO [id number] 11:02:00* Test Item Value Reference Range Interpretation [...] DIFF REQUIRED (test code = MDIFF) NO [id number] 07:41:00* Test Item Value Reference Range Interpretation Comments GLUBED (test code = GLUBED) 111 mg/dL 74-106 H Performed by certified arch cushion press operator at [facility] [id number] 21:20:00* Test Item Value Reference Range Interpretation Comments GLUBED (test code = GLUBED) 201 mg/dL 74-106 H Performed by certified arch cushion press operator at [facility] [id number] 16:36:00* Test Item Value Reference Range Interpretation Comments GLUBED (test code = GLUBED) 214 mg/dL 74-106 H Performed by certified arch cushion press operator at [facility] [id number] 12:00:00* Test Item Value Reference Range Interpretation Comments GLUBED (test code = GLUBED) 266 mg/dL 74-106 H Performed by certified arch cushion press operator at [facility] [id number] 07:31:00* Test Item Value Reference Range Interpretation Comments GLUBED (test code = GLUBED) 252 mg/dL 74-106 H Performed by certified arch cushion press operator at [facility] [id number] 21:20:00* Test Item Value Reference Range Interpretation Comments GLUBED (test code = GLUBED) 109 mg/dL 74-106 H Performed by certified arch cushion press operator at [facility] [id number] 16:47:00* Test Item Value Reference Range Interpretation Comments GLUBED (test code = GLUBED) 328 mg/dL 74-106 H Performed by certified arch cushion press operator at [facility] [id number] 11:32:00* Test Item Value Reference Range Interpretation Comments GLUBED (test code = GLUBED) 145 mg/dL 74-106 H Performed by certified arch cushion press operator at [facility] [id number] 07:54:00* Test Item Value Reference Range Interpretation Comments GLUBED (test code = GLUBED) 347 mg/dL 74-106 H Performed by certified arch cushion press operator at [facility] CBC W/AUTO [id number] 07:28:00* Test Item Value Reference Range Interpretation [...] (test code = MDIFF) NO BASIC METABOLIC [id number] 07:10:00* Test Item Value Reference Range Interpretation [...] CA) 8.8 mg/dL 8.5-10.1 N BASIC METABOLIC [id number] 06:59:00* Test Item Value Reference Range Interpretation [...] CALCIUM (test code = CA) mg/dL 8.5-10.1 [id number] 22:44:00* Test Item Value Reference Range Interpretation Comments GLUBED (test code = GLUBED) 364 mg/dL 74-106 H Performed by certified arch cushion press operator at [facility] BASIC METABOLIC [id number] 17:43:00* Test Item Value Reference Range Interpretation [...] CA) 9.9 mg/dL 8.5-10.1 N HEPATIC FUNCTION [id number] 17:43:00* Test Item Value Reference Range Interpretation [...] reference range due to change in reagent. [id number] 17:43:00* Test Item Value Reference Range Interpretation Comments LIPASE (test code = LIP) 18 U/L 73.0-393.0 L BASIC METABOLIC [id number] 17:22:00* Test Item Value Reference Range Interpretation [...] code = CA) mg/dL 8.5-10.1 HEPATIC FUNCTION [id number] 17:22:00* Test Item Value Reference Range Interpretation [...] TOTAL (test code = ALKP) IUnit/L 45-117 [id number] 17:22:00* Test Item Value Reference Range Interpretation Comments LIPASE (test code = LIP) U/L 73.0-393.0 URINALYSIS [id number] 17:00:00* Test Item Value Reference Range Interpretation [...] FEW #/LPF FEW Urine Source? Clean CatchURINALYSIS [id number] 16:55:00* Test Item Value Reference Range Interpretation [...] HPF NONE Urine Source? Clean CatchCBC W/O [id number] 16:40:00* Test Item Value Reference Range Interpretation [...] MPV) 10.7 fL 6.7-11.0 N CBC W/O [id number] 16:37:00* Test Item Value Reference Range Interpretation [...] code = MPV) fL 6.7-11.0 US ABDOMEN [id number] 10:20:00 [place] [address] Patient Name: BREE ASHTON MR #: [id number] : 1975 Age/Sex: 42/M Req #: [id number] Adm Physician: Ordered by: TAVIA GARCIA MD Report #: [id number] Location: [place] Room/Bed: Procedure: [id number] U S/US ABDOMEN COMPLETE Exam Date: Exam [...] 102 3 COPY TO: TAVIA GARCIA MD [id number] 05:55:00* Test Item Value Reference Range Interpretation Comments GLUBED (test code = GLUBED) 195 mg/dL 74-106 H Performed by certified arch cushion press operator at [facility] [id number] 17:33:00* Test Item Value Reference Range Interpretation Comments GLUBED (test code = GLUBED) 151 mg/dL 74-106 H Performed by certified arch cushion press operator at [facility] BASIC METABOLIC [id number] 15:46:00* Test Item Value Reference Range Interpretation [...] code = CA) 7.7 mg/dL 8.5-10.1 L [id number] 12:16:00* Test Item Value Reference Range Interpretation Comments GLUBED (test code = GLUBED) 136 mg/dL 74-106 H Performed by certified arch cushion press operator at [facility] [id number] 07:53:00* Test Item Value Reference Range Interpretation Comments GLUBED (test code = GLUBED) 129 mg/dL 74-106 H Performed by certified arch cushion press operator at [facility] COMPREHENSIVE METABOLIC [id number] 06:41:00* Test Item Value Reference Range Interpretation Comments SODIUM (test code = NA) 139 mmol/L 136-145 N POTASSIUM (test code = K) 2.7 mmol/L 3.5-5.1 Re sults called to [id number] by V.[email or web address] 05/16/18 0636Critical results verified and read back [...] due to change in reagent. CBC W/AUTO [id number] 05:31:00* Test Item Value Reference Range Interpretation [...] code = NRBC#) 0.00 K/mm3 0.0-0.1 N [id number] 20:43:00* Test Item Value Reference Range Interpretation Comments GLUBED (test code = GLUBED) 122 mg/dL 74-106 H Performed by certified arch cushion press operator at [facility] [id number] 17:15:00* Test Item Value Reference Range Interpretation Comments GLUBED (test code = GLUBED) 145 mg/dL 74-106 H Performed by certified arch cushion press operator at [facility] [id number] 11:46:00* Test Item Value Reference Range Interpretation Comments GLUBED (test code = GLUBED) 228 mg/dL 74-106 H Performed by certified arch cushion press operator at [facility] [id number] 07:49:00* Test Item Value Reference Range Interpretation Comments GLUBED (test code = GLUBED) 123 mg/dL 74-106 H Performed by certified arch cushion press operator at [facility] COMPREHENSIVE METABOLIC [id number] 07:19:00* Test Item Value Reference Range Interpretation Comments SODIUM (test code = NA) 140 mmol/L 136-145 N POTASSIUM (test code = K) 2.9 mmol/L 3.5-5.1 L Re sults called to [id number] by V.[email or web address] 05/15/18 0716Critical results verified and read back [...] due to change in reagent. CBC W/AUTO [id number] 06:20:00* Test Item Value Reference Range Interpretation [...] code = NRBC#) 0.00 K/mm3 0.0-0.1 N [id number] 21:14:00* Test Item Value Reference Range Interpretation Comments GLUBED (test code = GLUBED) 152 mg/dL 74-106 H Performed by certified arch cushion press operator at [facility] [id number] 17:16:00* Test Item Value Reference Range Interpretation Comments GLUBED (test code = GLUBED) 140 mg/dL 74-106 H Performed by certified arch cushion press operator at [facility] [id number] 11:55:00* Test Item Value Reference Range Interpretation Comments GLUBED (test code = GLUBED) 236 mg/dL 74-106 H Performed by certified arch cushion press operator at [facility] COMPREHENSIVE METABOLIC [id number] 08:50:00* Test Item Value Reference Range Interpretation [...] due to change in reagent. COMPREHENSIVE METABOLIC [id number] 08:38:00* Test Item Value Reference Range Interpretation [...] code = ALKP) IUnit/L 45-117 CBC W/AUTO [id number] 08:00:00* Test Item Value Reference Range Interpretation [...] DIFF REQUIRED (test code = MDIFF) NO [id number] 07:51:00* Test Item Value Reference Range Interpretation Comments GLUBED (test code = GLUBED) 210 mg/dL 74-106 H Performed by certified arch cushion press operator at [facility] [id number] 20:06:00* Test Item Value Reference Range Interpretation Comments GLUBED (test code = GLUBED) 278 mg/dL 74-106 H Performed by certified arch cushion press operator at [facility] [id number] 16:53:00* Test Item Value Reference Range Interpretation Comments GLUBED (test code = GLUBED) 236 mg/dL 74-106 H Performed by certified arch cushion press operator at [facility] [id number] 11:31:00* Test Item Value Reference Range Interpretation Comments GLUBED (test code = GLUBED) 269 mg/dL 74-106 H Performed by certified arch cushion press operator at [facility] [id number] 10:39:00* Test Item Value Reference Range Interpretation Comments GLUBED (test code = GLUBED) 298 mg/dL 74-106 H Performed by certified arch cushion press operator at [facility] COMPREHENSIVE METABOLIC [id number] 06:29:00* Test Item Value Reference Range Interpretation [...] due to change in reagent. COMPREHENSIVE METABOLIC [id number] 06:10:00* Test Item Value Reference Range Interpretation [...] code = ALKP) IUnit/L 45-117 CBC W/AUTO [id number] 05:48:00* Test Item Value Reference Range Interpretation [...] DIFF REQUIRED (test code = MDIFF) NO [id number] 20:52:00* Test Item Value Reference Range Interpretation Comments GLUBED (test code = GLUBED) 238 mg/dL 74-106 H Performed by certified arch cushion press operator at [facility] [id number] 15:54:00* Test Item Value Reference Range Interpretation Comments GLUBED (test code = GLUBED) 199 mg/dL 74-106 H Performed by certified arch cushion press operator at [facility] [id number] 11:51:00* Test Item Value Reference Range Interpretation Comments GLUBED (test code = GLUBED) 265 mg/dL 74-106 H Performed by certified arch cushion press operator at [facility] [id number] 08:20:00* Test Item Value Reference Range Interpretation Comments GLYCOSYLATED HEMOGLOBIN (HA1C) (test code = GLYHGB) 10.6 % HbA1 4. 8-6.0 H ESTIMATED AVERAGE GLUCOSE (test code = EAG) 258 MG/DL COMPREHENSIVE METABOLIC [id number] 08:11:00* Test Item Value Reference Range Interpretation [...] result is a direct measurement.========= THYROID STIMULATING [id number] 08:11:00* Test Item Value Reference Range Interpretation Comments THYROID STIMULATING HORMONE (test code = TSH) 1.020 uIU/mL 0.36-3.7 4 N TSH REFERENCE RANGES: EUTHYROID: 0.35 - 4.3 mIU/mL HYPO : > 5.5 mIU/mL HYPER : < 0.35 mIU/mL COMPREHENSIVE METABOLIC [id number] 07:53:00* Test Item Value Reference Range Interpretation [...] code = LDL) mg/dL 100-129 THYROID STIMULATING [id number] 07:53:00* Test Item Value Reference Range Interpretation Comments THYROID STIMULATING HORMONE (test code = TSH) uIU/mL 0.36-3.7 4 CBC W/AUTO [id number] 07:51:00* Test Item Value Reference Range Interpretation [...] DIFF REQUIRED (test code = MDIFF) NO [id number] 07:10:00* Test Item Value Reference Range Interpretation Comments GLUBED (test code = GLUBED) 350 mg/dL 74-106 H Performed by certified arch cushion press operator at [facility] DRUGS OF ABUSE SCREEN [id number] 06:10:00* Test Item Value Reference Range Interpretation [...] code = [place]URN) NEGATIVE <300 ng/mL URINALYSIS [id number] 05:29:00* Test Item Value Reference Range Interpretation [...] Urine Source? Clean CatchDRUGS OF ABUSE SCREEN [id number] 05:12:00* Test Item Value Reference Range Interpretation [...] METHADONE (test code = METHAURN) <300 ng/mL [id number] 20:26:00* Test Item Value Reference Range Interpretation Comments GLUBED (test code = GLUBED) 285 mg/dL 74-106 H Performed by certified arch cushion press operator at [facility] [id number] 13:32:00* Test Item Value Reference Range Interpretation Comments GLUBED (test code = GLUBED) 159 mg/dL 74-106 H Performed by certified arch cushion press operator at [facility] BASIC METABOLIC [id number] 09:38:00* Test Item Value Reference Range Interpretation [...] CA) 8.9 mg/dL 8.5-10.1 N HEPATIC FUNCTION [id number] 09:38:00* Test Item Value Reference Range Interpretation [...] reference range due to change in reagent. [id number] 09:38:00* Test Item Value Reference Range Interpretation Comments LIPASE (test code = LIP) 20 U/L 73.0-393.0 L BASIC METABOLIC [id number] 09:30:00* Test Item Value Reference Range Interpretation [...] code = CA) mg/dL 8.5-10.1 HEPATIC FUNCTION [id number] 09:30:00* Test Item Value Reference Range Interpretation [...] TOTAL (test code = ALKP) IUnit/L 45-117 [id number] 09:30:00* Test Item Value Reference Range Interpretation Comments LIPASE (test code = LIP) U/L 73.0-393.0 CBC W/O [id number] 09:13:00* Test Item Value Reference Range Interpretation [...] code = MPV) 10.6 fL 6.7-11.0 N [id number] 07:28:00* Test Item Value Reference Range Interpretation Comments GLUBED (test code = GLUBED) 173 mg/dL 74-106 H Performed by certified arch cushion press operator at [facility] [id number] 20:56:00* Test Item Value Reference Range Interpretation Comments GLUBED (test code = GLUBED) 181 mg/dL 74-106 H Performed by certified arch cushion press operator at [facility] [id number] 16:11:00* Test Item Value Reference Range Interpretation Comments GLUBED (test code = GLUBED) 245 mg/dL 74-106 H Performed by certified arch cushion press operator at [facility] [id number] 11:55:00* Test Item Value Reference Range Interpretation Comments GLUBED (test code = GLUBED) 309 mg/dL 74-106 H Performed by certified arch cushion press operator at [facility] [id number] 08:03:00* Test Item Value Reference Range Interpretation Comments GLUBED (test code = GLUBED) 241 mg/dL 74-106 H Performed by certified arch cushion press operator at [facility] [id number] 00:08:00* Test Item Value Reference Range Interpretation Comments GLUBED (test code = GLUBED) 175 mg/dL 74-106 H Performed by certified arch cushion press operator at [facility] [id number] 20:00:00* Test Item Value Reference Range Interpretation Comments GLUBED (test code = GLUBED) 167 mg/dL 74-106 H Performed by certified arch cushion press operator at [facility] [id number] 16:45:00* Test Item Value Reference Range Interpretation Comments GLUBED (test code = GLUBED) 208 mg/dL 74-106 H Performed by certified arch cushion press operator at [facility] [id number] 16:01:00* Test Item Value Reference Range Interpretation Comments GLUBED (test code = GLUBED) 47 mg/dL 74-106 LL [facility]~ [id number] 11:44:00* Test Item Value Reference Range Interpretation Comments GLUBED (test code = GLUBED) 317 mg/dL 74-106 H Performed by certified arch cushion press operator at [facility] [id number] 08:20:00* Test Item Value Reference Range Interpretation Comments GLUBED (test code = GLUBED) 271 mg/dL 74-106 H Performed by certified arch cushion press operator at [facility] CBC W/AUTO [id number] 05:45:00* Test Item Value Reference Range Interpretation [...] = MDIFF) NO, ONLY SCAN NEEDED DIFFERENTIAL [id number] 05:45:00* Test Item Value Reference Range Interpretation Comments STAIN ACCEPTABILITY (test code = STN ACCEPTABLE) STAIN ACCEPTABLE POLYCHROMASIA (test code = POLC) 1+ HYPOCHROMIA (test code = HYPO) 1+ PLATELET ESTIMATE (test code = PLTEST) ADEQUATE PLATELET MORPHOLOGY (test code = PLTMORPH) NORMAL CBC W/AUTO [id number] 05:08:00* Test Item Value Reference Range Interpretation [...] = MDIFF) NO, ONLY SCAN NEEDED DIFFERENTIAL [id number] 05:08:00* Test Item Value Reference Range Interpretation Comments STAIN ACCEPTABILITY (test code = STN ACCEPTABLE) CABOT RINGS (test code = CAB) MORPHOLOGY COMMENT (test code = MOC) PLATELET ESTIMATE (test code = PLTEST) PLATELET MORPHOLOGY (test code = PLTMORPH) CBC W/AUTO [id number] 05:08:00* Test Item Value Reference Range Interpretation [...] = MDIFF) NO, ONLY SCAN NEEDED DIFFERENTIAL [id number] 05:08:00* Test Item Value Reference Range Interpretation Comments STAIN ACCEPTABILITY (test code = STN ACCEPTABLE) MORPHOLOGY COMMENT (test code = MOC) PLATELET ESTIMATE (test code = PLTEST) PLATELET MORPHOLOGY (test code = PLTMORPH) CBC W/AUTO [id number] 05:08:00* Test Item Value Reference Range Interpretation [...] = MDIFF) NO, ONLY SCAN NEEDED DIFFERENTIAL [id number] 05:08:00* Test Item Value Reference Range Interpretation Comments STAIN ACCEPTABILITY (test code = STN ACCEPTABLE) MORPHOLOGY COMMENT (test code = MOC) PLATELET ESTIMATE (test code = PLTEST) PLATELET MORPHOLOGY (test code = PLTMORPH) CBC W/AUTO [id number] 05:08:00* Test Item Value Reference Range Interpretation [...] = MDIFF) NO, ONLY SCAN NEEDED DIFFERENTIAL [id number] 05:08:00* Test Item Value Reference Range Interpretation Comments STAIN ACCEPTABILITY (test code = STN ACCEPTABLE) CABOT RINGS (test code = CAB) MORPHOLOGY COMMENT (test code = MOC) PLATELET ESTIMATE (test code = PLTEST) PLATELET MORPHOLOGY (test code = PLTMORPH) COMPREHENSIVE METABOLIC [id number] 05:04:00* Test Item Value Reference Range Interpretation [...] due to change in reagent. COMPREHENSIVE METABOLIC [id number] 04:54:00* Test Item Value Reference Range Interpretation [...] TOTAL (test code = ALKP) IUnit/L 45-117 [id number] 21:00:00* Test Item Value Reference Range Interpretation Comments GLUBED (test code = GLUBED) 334 mg/dL 74-106 H Performed by certified arch cushion press operator at [facility] [id number] 16:10:00* Test Item Value Reference Range Interpretation Comments GLUBED (test code = GLUBED) 102 mg/dL 74-106 N Performed by certified arch cushion press operator at [facility] [id number] 15:59:00* Test Item Value Reference Range Interpretation Comments GLUBED (test code = GLUBED) 339 mg/dL 74-106 H Performed by certified arch cushion press operator at [facility] URINALYSIS [id number] 09:47:00* Test Item Value Reference Range Interpretation [...] 0-2 #/HPF 0-5 Urine Source? Clean CatchURINALYSIS [id number] 09:46:00* Test Item Value Reference Range Interpretation [...] HPF 0-5 Urine Source? Clean CatchBASIC METABOLIC [id number] 04:02:00* Test Item Value Reference Range Interpretation [...] CA) 9.3 mg/dL 8.5-10.1 N HEPATIC FUNCTION [id number] 04:02:00* Test Item Value Reference Range Interpretation [...] reference range due to change in reagent. [id number] 04:02:00* Test Item Value Reference Range Interpretation Comments LIPASE (test code = LIP) 22 U/L 73.0-393.0 L BASIC METABOLIC [id number] 03:53:00* Test Item Value Reference Range Interpretation [...] code = CA) mg/dL 8.5-10.1 HEPATIC FUNCTION [id number] 03:53:00* Test Item Value Reference Range Interpretation [...] TOTAL (test code = ALKP) IUnit/L 45-117 [id number] 03:53:00* Test Item Value Reference Range Interpretation Comments LIPASE (test code = LIP) U/L 73.0-393.0 CBC W/O [id number] 03:46:00* Test Item Value Reference Range Interpretation [...] code = MPV) 10.9 fL 6.7-11.0 N [id number] 17:23:00 RUN DATE: 12/16/17 [facility] PAGE 1 RUN TIME: 1723 Specimen Inqui ry RUN USER: INTERFACE PATIENT: BREE [place]HTON ACCT #: [id number] LOC: JOHNATHAN #: [id number] AGE/SX: 42/M ROOM: 2046 RE12/11/17REG DR: Olegario Diaz MD : 75 BED: A DIS: 12/13/17 STATUS: DIS IN TLOC: SPEC #: [id number] RECD: 12/14/17 STATUS: SHAHRAM BASSEM #: [id number] HUY: 12/11/17- SUBM DR: Kvng Izaguirre MD ENTERED: 12/14/17-1150 SP TYPE: STOMACH OTHR DR: Levi Natarajan i, MD ORDERED: GROSS COPIES TO: Kvng Izaguirre MD [address] [place] [address] Levi Lakhani MD [address], [address] [place] [address] PROCEDURES: GROSS (12/15/17-7614 ) TISSUES: 1. GASTRIC ULCER - BX [...] INTESTINAL METAPLASIA AND DYSPLASIA NEGATIVE FOR MALIGNANCY MYA/ D [phone] CONTINUED ON NEXT PAGE RUN DATE: 12/16/17 [facility] - [facility] PAGE 2 RUN TIME: 1723 Specimen Inquiry RUN USER: INTER FACE SPEC #: [id number] PATIENT: BREE ASHTON #[id number] (Con tinued) MACROSCOPIC The first specimen is [...] measuring 0.2 cm each. GROSS PERFORMED AT [facility] [address] [place] [address], [place] [address] [phone] MICROSCOPIC MICROSCOPIC PERFORMED AT [facility] All of the stains, including any controls performed, hao aguirre [facility] [address] [facility], [place] [address] [phone])[phone] PERFORM[address] SITE Diagnosis performed at: [facility], [place] [address] [facility] [place], [place] [id number] Signed SIGNATURE ON FILE Leigh Ann Fuller 12/16/17 1723 END OF REPORT
[2019-08-24] MEDS ORDERED: ONDANSETRON HCL INJ 2MG/ML 2ML 2 MG/ML VIAL IV STA (06:12)
[2019-08-24] MEDS ORDERED: SODIUM CHLORIDE 0.9% 1000ML 1,000 ML IV STA (06:12)
[2019-08-24] MEDS ORDERED: LORAZEPAM INJ 2 MG/ML VIAL IV ONE (06:30)
[2019-08-24] MEDS ORDERED: ONDANSETRON HCL INJ 2MG/ML 2ML 2 MG/ML VIAL ONE (06:51)
[2019-08-24] MEDS ORDERED: SODIUM CHLORIDE 0.9% 1000ML 1,000 ML ONE (06:52)
[2019-08-24] MEDS ORDERED: LORAZEPAM INJ 2 MG/ML VIAL ONE (06:52)
[2019-08-24] MEDS ORDERED: FAMOTIDINE 20 MG/2 ML VIAL IV STA (08:05)
[2019-08-24] MEDS ORDERED: ONDANSETRON HCL INJ 2MG/ML 2ML 2 MG/ML VIAL IV PRN (08:15)
--- NOTE | 2019-08-24 08:21 | Emergency Department Note ---
History of Present Illnes History of Present Illness Chief Complaint: Abdominal Complaints History of Present Illness This is a 43 year old male . Chief Complaint Comment PT WAS SEEN HERE LAST NIGHT FOR NAUSEA, VOMITING AND AB PAIN, PT IS BACK WITH SAME COMPLAINTS OF NAUSEA, VOMITING AND AB PAIN . Patient is known to have Gastroparesis. Historian: Patient Arrival Mode: Car Onset (how long ago): day(s) (2) Location: epigastric Quality: dull Radiation: non-radiation Severity: moderate Onset quality: gradual Duration (how long): day(s) (2) Timing of current episode: constant Progression: worsening Chronicity: recurrent Context: recent illness, recent surgery, recent immobilization, recent travel, trauma/injury, new medications, hx of DVT/PE, non-compliance w/ medications, other Relieving factors: none Exacerbating factors: none Associated symptoms: denies other symptoms Treatments prior to arrival: none Past Medical/Family History Physician Review I have reviewed the patient's past medical and family history. Any updates have been documented here. Past Medical History Recent Fever: No Clinical Suspicion of Infectio: No New/Unexplained Change in Ment: No Past Medical History: Diabetes Other Medical History: GASTROPERESIS Past Surgical History: Cholecysctectomy Other Surgery: EDG LEFT FOOT GANGRENE REMOVAL Social History Smoking Cessation: Never Smoker Counseling Performed: No Alcohol Use: None Any Illegal Drug Use: Yes (MARIJUANA) TB Exposure/Symptoms: No Physically hurt or threatened: No Other Last Tetanus: UNKNOWN Any Pre-Existing Lines (PICC,: No Is patient up to date on immun: No Last Flu: NO Last Pneumovax: NO Review of Systems Review of Systems Constitutional: no symptoms EENTM: no symptoms Cardiovascular: no symptoms Respiratory: no symptoms Gastrointestinal: as per HPI, abdominal pain, nausea, vomiting Genitourinary: no symptoms Musculoskeletal: no symptoms Neurological: no symptoms Psychological: no symptoms Endocrine: no symptoms Hematological/Lymphatic: no symptoms Review of other systems All other systems reviewed and negative. Physical Exam Related Data Allergies: Coded Allergies: No Known Allergies (Unverified , 07/02/18) Triage Vital Signs Vital Signs Date Time Temp Pulse Resp B/P (MAP) Pulse Ox O2 Delivery O2 Flow Rate FiO2 08/24/19 05:38 98.2 112 17 156/93 98 Vital signs reviewed: Yes Physical Exam CONSTITUTIONAL Constitutional: well-developed, well-nourished HENT HENT: normocephalic, atraumatic, oropharynx clear/moist, nose normal HENT L/R: left ext ear normal, right ext ear normal EYES Eyes: PERRL, conjunctivae normal NECK Neck: ROM normal PULMONARY Pulmonary: effort normal, breath sounds normal CARDIOVASCULAR Cardiovascular: regular rhythm, heart sounds normal, capillary refill normal, normal rate GASTROINTESTINAL Abdominal: soft, bowel sounds normal, tender (epigastric) GENITOURINARY Genitourinary: exam deferred SKIN Skin: warm, dry MUSCULOSKELETAL Musculoskeletal: ROM normal NEUROLOGICAL Neurological: alert, oriented x 3, no gross motor or sensory deficits PSYCHOLOGICAL Psychological: mood/affect normal, judgement normal Results Laboratory Lab results reviewed: Yes Critical Care Time Subsequent provider I assumed direction of critical care for this patient from another provider of my specialty. Assessment & Plan Reassessment Reassessment time: 08:20 Reassessment improved Assessment & Plan Final Impression: (1) Diabetic gastroparesis associated with type 2 diabetes mellitus (2) Tachycardia (3) Vomiting (4) Abdominal pain Assessment & Plan ivf zachary luna Depart Disposition: ADMITTED Last Vital Signs Date Time Temp Pulse Resp B/P (MAP) Pulse Ox O2 Delivery O2 Flow Rate FiO2 08/24/19 05:38 98.2 112 17 156/93 98 Home Meds Active Scripts Acetaminophen With Codeine (TYLENOL WITH CODEINE #3 TABLET) 1 Each Tablet, 300 MG PO Q6H PRN for pain, #20 TAB Prov:JAREK LO NP 07/10/19 Metoclopramide Hcl (REGLAN) 10 Mg Tablet, 1 TAB PO ACHS for 30 Days Before meals Prov:JAREK LO NP 11/25/18 Pantoprazole Sodium* (PROTONIX) 40 Mg Tablet.dr, 40 MG PO DAILY for 30 Days Prov:JAREK LO NP 11/25/18 Reported Medications Ondansetron Hcl (ONDANSETRON HCL) 4 Mg Tablet, 4 MG SL Q6H PRN for NAUSEA 07/02/18 Insulin Glargine (LANTUS 3ML PEN) 100 Units/1 Ml Inj, 15 UNITS SQ HS 07/02/18 Lisinopril (LISINOPRIL) 5 Mg Tablet, 5 MG PO DAILY 07/02/18 Insulin Aspart (NOVOLOG) 100 Units/1 Ml Inj, 8 UNITS SQ TIDWM 07/02/18 Medications in the ED Ondansetron HCl 4 mg NOW STAT IV Last administered on 08/24/19at 06:50; Admin Dose 4 MG; Start 08/24/19 at 06:12; Stop 08/24/19 at 06:13 Sodium Chloride 1,000 ml @ 0 mls/hr Q0M STAT IV Last administered on 08/24/19at 06:50; Admin Dose 1,000 MLS/HR; Start 08/24/19 at 06:12; Stop 08/24/19 at 06:13 Lorazepam 1 mg ONCE ONCE IV Last administered on 08/24/19at 06:50; Admin Dose 1 MG; Start 08/24/19 at 06:30; Stop 08/24/19 at 06:31 Ondansetron HCl 4 mg STK-MED ONCE .ROUTE ; Start 08/24/19 at 06:51; Stop 08/24/19 at 06:49; Status DC Lorazepam 2 mg STK-MED ONCE .ROUTE ; Start 08/24/19 at 06:52; Stop 08/24/19 at 06:49; Status DC Sodium Chloride 1,000 ml @ ud STK-MED ONCE .ROUTE ; Start 08/24/19 at 06:52; Stop 08/24/19 at 06:49; Status DC Morphine Sulfate 2 mg ONCE ONCE IV ; Start 08/24/19 at 07:00; Stop 08/24/19 at 07:01 Famotidine 20 mg NOW STAT IV ; Start 08/24/19 at 08:05; Stop 08/24/19 at 08:06; Status FILIBERTO GALVAN MD August 24, 2019 08:21
--- OUTSIDE RECORDS SUMMARY | 2019-08-24 09:08 | XMS REPORT | Clinical Summary ---
Author Author [facility] Address Unknown Phone Unavailable Care Team Providers Care Certified Alcohol And Drug Counselor Name Role Phone Pcp, No PCP Unavailable [...] (HCC); Cannabinoid hyperemesis syndrome (HCC); Hypokalemia 12/13/2018 [facility] Internal Ma dicine - Encounter 12/14/2018 12/13/2018 Travel after [...] AT 70 - 110 mg/dL [facility] [address] [facility] [address] Specimen Blood Performing Organization Address City/State/Zipcode Ph one Number [facility] [address] [place], [place] [address] MED[facility]ENTER * ECG 12 lead (12/14/2018 10:08 AM CDT) Specimen Narrative Performed At Ventricular Rate 78 BPM [facility] Atrial Rate 78 BPM P-R Interval 168 ms QRS Duration 80 ms Q-T Interval 350 ms QTC Calculation(Bazett) 399 ms P [place] 52 degrees R [place] -14 degrees T [place] 35 degrees Normal sinus rhythm Normal ECG No previous ECGs available Confirmed by MD BRODERICK YOCHAI ([id number] ) on 12/14/2018 2:27:24 PM Procedure Note Interface, External Ris In - 12/14/2018 2:27 PM CDT Ventricular Rate 78 BPM Atrial Rate 78 BPM P-R Interval 168 ms QRS Duration 80 ms Q-T Interval 350 ms QTC Calculation(Bazett) 399 ms P [place] 52 degrees R [place] -14 degrees T [place] 35 degrees Normal sinus rhythm Normal ECG No previous ECGs available Confirmed by MD BRODERICK YOCHAI ([id number]) on 12/14/2018 2:27:24 PM Performing Organization Address City/State/Zipcode Ph one Number GE MUSE * CBC with platelet count + automated diff (12/14/2018 4:58 AM CDT) Only the most recent of 2 results within the time period is included. WBC 7.5 3.5 - 10.5 K/L [facility] RBC 3.38 (L) 4.63 - 6.08 M/L [facility] Hemoglobin 9.8 (L) 13.7 - 17.5 GM/DL [facility] Hematocrit 31.1 (L) 40.1 - 51.0 % [facility] MCV 92.0 79.0 - 92.2 fL [facility] MCH 29.0 25.7 - 32.2 pg [facility] MCHC 31.5 (L) 32.3 - 36.5 GM/DL [facility] RDW 14.1 11.6 - 14.4 % [facility] Platelets 208Comment: Discordant PLT 150 - 450 K/CU MM [facility] results compared to previous [facility] results; clinical correlation required. MPV 10.4 9.4 - 12.4 fL [facility] nRBC 0 0 - 0 /100 WBC [facility] % Neutros 66 % [facility] % Lymphs 20 % [facility] % Monos 12 % [facility] % Eos 1 % [facility] % Baso 1 % [facility] # Neutros 4.92 1.78 - 5.38 K/L [facility] # Lymphs 1.46 1.32 - 3.57 K/L [facility] # Monos 0.92 (H) 0.30 - 0.82 K/L [facility] # Eos 0.10 0.04 - 0.54 K/L [facility] # Baso 0.07 0.01 - 0.08 K/L [facility] Immature 0 0 - 1 % [facility] Granulocytes-[facility] Specimen Blood Performing Organization Address [facility] one Number [place] [address] [phone] [place] [address] * Phosphorus (12/14/2018 4:58 AM CDT) Phosphorus 2.2 (L) 2.3 - 4.7 mg/dL [facility] Specimen Blood Performing Organization Address City/[facility] Ph one Number [place] [address] 0 [phone] [place] [address] * Magnesium (12/14/2018 4:58 AM CDT) Magnesium 1.6 1.6 - 2.6 mg/dL [facility] Specimen Blood Performing Organization Address City/[facility]/Zipcode Ph one Number [address] [facility] * Basic metabolic panel (12/14/2018 4:58 AM CDT) Only the most recent of 2 results within the time period is included. Sodium 139 136 - 145 meq/L [facility] Potassium 3.2 (L) 3.5 - 5.1 meq/L [facility] Chloride 105 98 - 107 meq/L [facility] CO2 28 22 - 29 meq/L [facility] BUN 11 7 - 21 mg/dL [facility] Creatinine 1.12 0.57 - 1.25 mg/dL [facility] Glucose 112 (H) 70 - 105 mg/dL [facility] Calcium 8.7 8.4 - 10.2 mg/dL [facility] EGFR 87Comment: ESTIMATED GFR IS mL/min/1.73 sq m [facility] NOT ACCURATE CREATININE [facility] CLEARANCE IN PREDICTING GLOMERULAR FILTRATION RATE. ESTIMATED GFR IS NOT APPLICABLE FOR DIALYSIS PATIENTS. Specimen Blood Performing Organization Address [facility] one Number [address] [facility] * Hemoglobin A1c (12/13/2018 3:38 PM CDT) Hemoglobin A1C 8.4 (H) 4.3 - 6.1 % [facility] Specimen Blood Performing Organization Address City/[facility] one Number [address] [facility] * Hepatic function panel (12/13/2018 3:38 PM CDT) Protein, Total 6.9 6.0 - 8.3 gm/dL [facility] Albumin 3.9 3.5 - 5.0 g/dL [facility] Total Bilirubin 0.5 0.2 - 1.2 mg/dL [facility] Bilirubin, Direct 0.2 0.1 - 0.5 mg/dL [facility] Alkaline Phosphatase 80 40 - 150 U/L [facility] AST 18 5 - 34 U/L [facility] ALT 15 6 - 55 U/L [facility] Specimen Blood Performing Organization Address [facility] Ph one Number [facility] [address] [place] [address] [facility] * Lipid panel (12/13/2018 3:38 PM CDT) Triglycerides 101 mg/dL [facility] Cholesterol 151 mg/dL [facility] HDL 38 mg/dL [facility] LDL Calculated 93 mg/dL [facility] Specimen Blood Narrative Performed At Triglyceride Reference Range: [facility] Low Risk <150 [facility] [id number] High Risk 200-499 Very High Risk>=500 Cholesterol Reference Range: Low Risk <200 [id number] High Risk>240 HDL Cholesterol Reference Range: Low Risk >=60 High Risk <40 LDL Cholesterol Reference Range: Optimal<100 Near [id number] Very High >=190 Performing Organization Address [facility] Ph one Number [facility] [address] [place], [place] [address] [facility] after 08/23/2018 Insurance Payer Benefit Subscriber ID Type Phone Address Plan / Group MEDICARE MEDICARE A xxxxxxxxxxx Medicare B [id number] Advance Directives For more information, please contact: [address] [address] Date Inactivated Comments Code Status Date Activated 12/15/2018 12:01 AM Full Code 12/13/2018 10:07 AM This code status was determined by: Patient
--- OUTSIDE RECORDS SUMMARY | 2019-08-24 09:09 | XMS REPORT ---
Author Author [facility] t Organization [facility] t Address [facility] [address] [place] [address] Phone Unavailable Support Name Relationship Address Phone NeftaliAleisha henriquez ECON [address] [place], [place] [address] ALEISHA PARKER Next Of Kin [address] [place], [place] [id number] Isis RUFFIN MD Caregiver [address] [place] [address] Unavailable MELY GOLDSMITH MD Caregiver [address] [place] [address] Chao BECKMANRUBÉN Caregiver [address] [place] [address] TANVIR FALLON, Mary Ann BENITEZ Caregiver [address] [place] [address] Unavailable Mary Ann LOONEY MD Caregiver [address] [place] [address] Unavailable ISACC JAVED MD Caregiver [address] [facility] [address] [place] [address] CHRIS FALLON, NEIL Caregiver 101 [facility] [address] [place] [address] Unavailable Kelly GORDON MD Caregiver [address] [place] [address] Unavailable RIGOBERTO FALLON, Isis NEWMAN Caregiver [address] [place] [address] Unavailable ARIADNA FALLON, FILIBERTO Caregiver [address] [place] [address] RIGOBERTO FALLON, Isis NEWMAN Caregiver [address] [place] [address] MD FILIBERTO ROSENTHAL PRS [address] [place] [address] ALEISHA PARKER PR[address] [place], [place] [address] Care Team Providers Care Corrections Identification Technician Name Role Phone Chao BECKMAN PCP NEIL PEREZ Attphys Unavailable Dasia GIBSON, Zaina Attphys GADICHERLA, MURALINATH DORETHA Attphys Unavailable KILLNATIVIDAD, ISACC Attphys Unavailable TAVIA GARCIA Attphys Unavailable GADICHERLA, MURALINATH DORETHA Admphys Unavailable KILLAM, ISACC Admphys Unavailable Payers Payer Name Policy Type Policy Number Effective Date Expiration Date Keeley cagle Medicare A & B [id number] 2016 00:00:[address] [facility] Medicare A & B [id number] 2016 00:00:00 [facility] Medicare A & B [id number] 2016 00:00:00 [facility] Medicare A & B [id number] 2016 00:00:00 [facility] Medicare A & B [id number] 2016 00:00:00 [facility] Medicare A & B [id number] 2016 00:00:00 [facility] Medicare A & B [id number] 2016 00:00:00 [facility] Medicare A & B [id number] 2016 00:00:00 [facility] Advance Directives Directive Decision Effective Date Termination Date Comments Sour ce Yes N/A [facility] Problems Condition Name Condition Details Condition Category Status Onset Date Resolution Date Last Treatment Date Treating Clinician Comments Source Diabetic gastroparesis associated with type 2 diabetes mellitus Diabetic gastroparesis associated with type 2 diabetes mellitus Problem Active [facility] Upper gastrointestinal hemorrhage Upper GI bleed Problem Active [facility] Dehydration Dehydration Problem Active [facility] Nausea and vomiting Nausea & vomiting Problem Active [facility] Hematemesis Problem [facility] Acute epigastric pain Problem [facility] Allergies, Adverse Reactions, Alerts Allergy Name Allergy Type Status Severity Reaction(s) Onset Date Inacti ve Date Treating Clinician Comments Source No Known Allergies DA Active U 2019-02-13 00:00:00 [facility] No Known Allergies DA Active U 2019-02-06 00:00:00 [facility] No Known Allergies DA Active U 2018-05-11 00:00:00 [facility] No Known Allergies DA Active U 2018-02-26 00:00:00 [facility] No Known Allergies DA Active U 2018-01-14 00:00:00 [facility] No Known Allergies DA Active U 2017-12-15 00:00:00 [facility] No Known Allergies DA Active U 2017-10-09 00:00:00 [facility] Social History Social Habit Start Date Stop Date Quantity Comments Source Sex Assigned At 1975 00:00:00 1975 00:00:00 Male [facility] Medications Ordered Medication Name Filled Medication Name Start Date Stop Da te Current Medication? Ordering Clinician Indication Dosage Frequency Signature (SIG) Comments Components Source Acetaminophen With Codeine (Tylenol With Codeine #3 Ta blet) 1 Each TABLET Acetaminophen With Codeine (Tylenol With Codeine #3 Tablet) 1 Each TABLET 2019-07-10 18:44:00 Yes 300 [facility] Promethazine Hcl Promethazine Hcl 2019-07-06 13:42:00 2019-07-10 00:00 :00 No 25 [facility] Ondansetron (Ondansetron Odt) 8 Mg TAB.RAPDIS Ondanset calli (Ondansetron Odt) 8 Mg TAB.RAPDIS 2018-12-12 19:01:00 2019-07-10 00:00:00 No 4 [facility] Promethazine Hcl (Phenergan Supp*) 25 Mg SUPP Prometha zine Hcl (Phenergan Supp*) 25 Mg SUPP 2018-12-12 19:01:00 2019-07-10 00:00:00 No 25 [facility] Metoclopramide Hcl (Reglan) 10 Mg TABLET Metoclopramid e Hcl (Reglan) 10 Mg TABLET 2018-11-25 06:19:00 Yes 1 [facility] Pantoprazole Sodium (Protonix) 40 Mg TABLET. Pantopr azole Sodium (Protonix) 40 Mg TABLET. 2018-11-25 06:19:00 Yes 40 [facility] Amlodipine Besylate (Norvasc) 10 Mg TAB Amlodipine Besylate (Norvasc) 10 Mg TAB 2018-11-25 06:19:00 2019-07-09 00:00:00 No 10 [facility] Insulin Aspart (Novolog) 100 Units/1 Ml INJ Insulin As part (Novolog) 100 Units/1 Ml INJ Yes 8 [facility] Insulin Glargine (Lantus 3ML Pen) 100 Units/1 Ml INJ I nsulin Glargine (Lantus 3ML Pen) 100 Units/1 Ml INJ Yes 15 [facility] Lisinopril Lisinopril Yes 5 [facility] Ondansetron Hcl Ondansetron Hcl Yes 4 [facility] Dicyclomine Hcl Dicyclomine Hcl 2019-07-10 00:00:00 No 10 [facility] Promethazine Hcl Promethazine Hcl 2019-07-10 00:00:00 No 2 5 [facility] Tramadol Hcl (Ultram 50MG*) 50 Mg TAB Tramadol Hcl (Ultram 50MG* ) 50 Mg TAB 2019-07-10 00:00:00 No 1 [facility] Glimepiride Glimepiride 2019-07-09 00:00:00 No 2 [facility] Metoclopramide Hcl (Reglan) 10 Mg TABLET Metoclopramid e Hcl (Reglan) 10 Mg TABLET 2018-11-25 00:00:00 No 1 [facility] Metoclopramide Hcl Metoclopramide Hcl 2018-11-25 00:00:00 No 10 [facility] Metoclopramide Hcl (Reglan) 10 Mg TABLET Metoclopramid e Hcl (Reglan) 10 Mg TABLET 2018-11-25 00:00:00 No 1 [facility] Pantoprazole Sodium (Protonix) 40 Mg TABLET. Pantopr azole Sodium (Protonix) 40 Mg TABLET. 2018-11-25 00:00:00 No 40 [facility] Pantoprazole Sodium (Protonix) 40 Mg TABLET. Pantopr azole Sodium (Protonix) 40 Mg TABLET. 2018-11-25 00:00:00 No 40 [facility] Vital Signs Vital Name Observation Time Observation Value Comments Source Weight 2019-08-23 17:53:00 195 [lb_av] [facility] BMI (Body Mass Index) 2019-08-23 17:53:00 25.7 kg/m2 [facility] Body Temperature 2019-07-24 12:23:00 97.6 [degF] [facility] Procedures This patient has no known procedures. Plan of Care Planned Activity Planned Date Details Comments Source Goal Patient referral [code = 0533738 ] [facility] Instructions Abdominal Pain - Adult [facility] Encounters Start Date/Time End Date/Time Encounter Type Admission Type Attendi [facility] Facility Care Department Encounter ID Source 2019-08-23 17:24:00 2019-08-23 19:35:00 Departed Emergency Room [facility] [id number] [facility] 2019-07-23 06:38:00 2019-07-24 13:59:00 Discharged Inpatient 1 ALEJANDRANEIL BAL [facility] [id number] [facility] 2019-07-09 15:58:00 2019-07-10 18:57:00 Discharged Inpatient (obs) [facility] [id number] [facility] 2019-07-06 11:09:00 2019-07-06 14:11:00 Departed Emergency Room [facility] [id number] [facility] 2019-05-31 00:00:00 2019-05-31 00:00:00 Transition of Care Zaina Forman [id number] 2018-12-13 06:33:00 2018-12-13 08:35:00 Departed Emergency Room [facility] [id number] [facility] 2018-12-12 17:07:00 2018-12-12 19:35:00 Departed Emergency Room [facility] [id number] [facility] 2018-11-22 18:24:00 2018-11-25 16:05:00 Discharged Inpatient 1 ISACC JAVED [facility] [id number] [facility] 2018-09-28 12:15:00 2018-09-28 16:32:00 Departed Emergency Room [facility] [id number] [facility] 2018-09-20 08:55:00 2018-09-20 08:55:00 Registered Clinic 3 TAVIA GARCIA [facility] [id number] [facility] 2018-08-10 13:35:00 2018-08-10 17:00:00 Departed Emergency Room [facility] [id number] [facility] 2018-07-05 11:53:00 2018-07-07 08:40:00 Discharged Inpatient [facility] [id number] [facility] 2018-06-23 07:38:00 2018-06-23 07:38:00 Registered Clinic 3 TAVIA GARCIA [facility] [id number] [facility] Results Test Description Test Time Test Comments Results Result Comments Source Capillary blood glucose measurement by glucometer (mas s/volume) 2019-07-24 11:15:00 Test Item Bedside Glucose (test code = 56717-3) 145 [facility] count (number/volume)2019-07-24 06:10:00* Test Item Value Reference Range Interpretation Comments White Blood Count (test code = 6690-2) 6.43 [facility] automated count (number/volume)2019-07-24 06:10:00* Test Item Value Reference Range Interpretation Comments Red Blood Count (test code = 789-8) 3.29 [facility] hemoglobin measurement (moles/volume)2019-07-24 06:10:00* Test Item Value Reference Range Interpretation Comments Hemoglobin (test code = 31806-3) 9.4 [facility] Center[facility] blood hematocrit (volume fraction)2019-07-24 06:10:00* Test Item Value Reference Range Interpretation Comments Hematocrit (test code = 4544-3) 29.7 [facility] Center[facility] erythrocyte mean corpuscular pbxqtv5662-27-04 06:10:00* Test Item Value Reference Range Interpretation Comments Mean Corpuscular Volume (test code = 787-2) 90.3 [facility] Center[facility] eryth[facility] mean corpuscular hemoglobin (mass per erythrocyte)2019-07-24 06:10:00* Test Item Value Reference Range Interpretation Comments Mean Corpuscular Hemoglobin (test code = 785-6) 28.6 [facility] Center[facility] erythrocyte mean corpuscular hemoglobin concentration measurement (mass/volume)2019-07-24 06:10:00* Test Item Value Reference Range Interpretation Comments Mean Corpuscular Hemoglobin Concent (test code = 786-4) 31.6 [facility] CenterRDW FgnFp-Yxt8905-70-26 06:10:00* Test Item Value Reference Range Interpretation Comments Red Cell Distribution Width (test code = 97419-0) 14.5 [facility] Center[facility] blood platelet count (count/volume)2019-07-24 06:10:00* Test Item Value Reference Range Interpretation Comments Platelet Count (test code = 777-3) 132 [facility] segmented neutrophil count as percentage of total wpdpyooehf2132-18-85 06:10:00* Test Item Value Reference Range Interpretation Comments Neutrophils (%) (Auto) (test code = 52104-9) 61.3 [facility] Center[facility] lymphocyte count as percentage ot total tihwdmjuaa9225-69-51 06:10:00* Test Item Value Reference Range Interpretation Comments Lymphocytes (%) (Auto) (test code = 736-9) 24.9 [facility] monocyte count as percentage of total vyrehoeuut3409-02-30 06:10:00* Test Item Value Reference Range Interpretation Comments Monocytes (%) (Auto) (test code = 5905-5) 10.0 [facility]Aut[facility] eosinophil count as percentage of total tpngrqzqft6431-14-37 06:10:00* Test Item Value Reference Range Interpretation Comments Eosinophils (%) (Auto) (test code = 713-8) 2.6 [facility] Center[facility] basophil count as percentage of total iokgtiojhe8688-72-09 06:10:00* Test Item Value Reference Range Interpretation Comments Basophils (%) (Auto) (test code = 706-2) 0.9 [facility] CenterFluoroscopic procedure less than one hour nebddmvb1928-88-54 06:10:00* Test Item Value Reference Range Interpretation Comments IM GRANULOCYTES % (test code = IM GRANULOCYTES %) 0.3 [facility] Center[facility] blood neutrophil count 2019-07-24 06:10:00* Test Item Value Reference Range Interpretation Comments Neutrophils # (Auto) (test code = 751-8) 3.9 [facility] lymphocytes count (number/volume) 2019-07-24 06:10:00* Test Item Value Reference Range Interpretation Comments Lymphocytes # (Auto) (test code = 14471-2) 1.6 [facility] monocytes automated count (number/volume)2019-07-24 06:10:00* Test Item Value Reference Range Interpretation Comments Monocytes # (Auto) (test code = 742-7) 0.6 [facility] Center[facility] blood eosinophil count 2019-07-24 06:10:00* Test Item Value Reference Range Interpretation Comments Eosinophils # (Auto) (test code = 711-2) 0.2 [facility] CenterAutom[facility] blood basophil count (count/volume)2019-07-24 06:10:00* Test Item Value Reference Range Interpretation Comments Basophils # (Auto) (test code = 704-7) 0.1 [facility] CenterFluoroscopic procedure less than one hour tevgbkhl2225-92-16 06:10:00* Test Item Value Reference Range Interpretation Comments Absolute Immature Granulocyte (auto (zeenat t code = Absolute Immature Granulocyte (auto) 0.02 [facility] plasma sodium measurement (moles/volume)2019-07-24 06:10:00* Test Item Value Reference Range Interpretation Comments Sodium Level (test code = 2951-2) 136 [facility]erum or plasma potassium measurement (moles/volume)2019-07-24 06:10:00* Test Item Value Reference Range Interpretation Comments Potassium Level (test code = 2823-3) 3.7 [facility]erum or plasma chloride measurement (moles/volume)2019-07-24 06:10:00* Test Item Value Reference Range Interpretation Comments Chloride Level (test code = 2075-0) 106 [facility] Hospitalerum or plasma carbon dioxide, total measurement (moles/volume)2019-07-24 06:10:00* Test Item Value Reference Range Interpretation Comments Carbon Dioxide Level (test code = 2028-9) 23 [facility] Hospitalerum or plasma anion zxp4636-02-50 06:10:00* Test Item Value Reference Range Interpretation Comments Anion Gap (test code = 06831-9) 10.7 [facility] Hospitalerum or plasma urea nitrogen measurement (mass/volume)2019-07-24 06:10:00* Test Item Value Reference Range Interpretation Comments Blood Urea Nitrogen (test code = 3094-0) 13 [facility] Hospitalerum or plasma creatinine measurement (mass/volume)2019-07-24 06:10:00* Test Item Value Reference Range Interpretation Comments Creatinine (test code = 2160-0) 1.24 [facility] Hospitalerum or plasma urea nitrogen/creatinine mass arvrm0057-37-85 06:10:00* Test Item Value Reference Range Interpretation Comments BUN/Creatinine Ratio (test code = 3097-3) 10 [facility] CenterEstimated glomerular filtration rate (GFR) syirgclxibszr1510-96-62 06:10:00* Test Item Value Reference Range Interpretation Comments Estimat Glomerular Filtration Rate (test code = 697650187) > 60 [facility] CenterGlucose ijinuswuzyf8747-85-52 06:10:00* Test Item Value Reference Range Interpretation Comments Glucose Level (test code = MMN1940) 148 [facility] Hospitalerum or plasma calcium measurement (mass/volume)2019-07-24 06:10:00* Test Item Value Reference Range Interpretation Comments Calcium Level (test code = 92639-0) 8.6 [facility] Hospitalerum or plasma total bilirubin measurement (mass/volume)2019-07-24 06:10:00* Test Item Value Reference Range Interpretation Comments Total Bilirubin (test code = 1975-2) 0.5 [facility] CenterFluoroscopic procedure less than one hour oqnwrsze0446-04-99 06:10:00* Test Item Value Reference Range Interpretation Comments Aspartate Amino Transf (AST/SGOT) (test code = Aspartate Amino Transf (AST/SGOT)) 14 [facility] Hospitalerum or plasma alanine aminotransferase measurement (enzymatic activity/volume)2019-07-24 06:10:00* Test Item Value Reference Range Interpretation Comments Alanine Aminotransferase (ALT/SGPT) (test code = 1742-6) 15 [facility] Hospitalerum or plasma protein measurement (mass/volume)2019-07-24 06:10:00* Test Item Value Reference Range Interpretation Comments Total Protein (test code = 2885-2) 6.2 [facility] Hospitalerum or plasma albumin measurement (mass/volume)2019-07-24 06:10:00* Test Item Value Reference Range Interpretation Comments Albumin (test code = 1751-7) 3.1 [facility] CenterPlasma globulin measurement (mass/volume) 2019-07-24 06:10:00* Test Item Value Reference Range Interpretation Comments Globulin (test code = 62739-9) 3.1 [facility] Hospitalerum or plasma albumin/globulin mass zwgbr7595-44-14 06:10:00* Test Item Value Reference Range Interpretation Comments Albumin/Globulin Ratio (test code = 1759-0) 1.0 [facility] Hospitalerum or plasma alkaline phosphatase measurement (enzymatic activity/volume)2019-07-24 06:10:00* Test Item Value Reference Range Interpretation Comments Alkaline Phosphatase (test code = 6768-6) 106 [facility] Hospitalerum or plasma amylase measurement (enzymatic activity/volume)2019-07-24 06:10:00* Test Item Value Reference Range Interpretation Comments Amylase Level (test code = 1798-8) 36 [facility] Hospitalerum or plasma lipase measurement (enzymatic activity/volume)2019-07-24 06:10:00* Test Item Value Reference Range Interpretation Comments Lipase (test code = 3040-3) < 4 [facility] CenterFluoroscopic procedure less than one hour dhccajed4155-26-46 12:20:00* Test Item Value Reference Range Interpretation Comments Hemoglobin A1c Percent (test code = Hemoglobin A1c Percent) 8.4 [facility] CenterFluoroscopic procedure less than one hour fkhqvcya6238-31-71 12:20:00* Test Item Value Reference Range Interpretation Comments Lactic Acid Level (test code = Lactic Acid Level) 0.8 [facility] CenterCT ABD/PEL WO [id number]-[id number] 06:46:00 [place] [address] Patient Name: BREE ASHTON MR #: [id number] : 1975 Age/Sex: 43/M Req #: [id number] Adm Physician: Ordered by: NEIL PEREZ MD Report #: [id number] Location: [facility] Room/Bed: Procedure: [id number] HOPD/CT ABD/PEL WO CONTRAST-HOPD Exam Date: 07/23/19 [...] COPY TO: NEIL PEREZ MD Bacterial blood qoavviq8730-65-36 06:44:00* Test Item Value Reference Range Interpretation Comments Blood Culture (test code = 600-7) STAPHYLOCOCCUS SP COAG NEG [facility] - IPYJ4729-49-05 06:44:00 [place] [address] Patient Name: BREE ASHTON MR #: [id number] : 1975 Age/Sex: 43/M Req #: [id number] Adm Physician: Ordered by: NEIL PEREZ MD Report #: [id number] Location: [facility] Room/Bed: Procedure: [id number] HOPD/CXR 1 VEW - HOPD Exam Date: [...] 07/23/19645 COPY TO: NEIL PEREZ MD Blood ixtrhjz1703-43-51 06:05:00* Test Item Value Reference Range Interpretation Comments Blood Culture (test code = 22652355) NO GROWTH AFTER 5 DAYS, FINAL REPORT [facility] Hospitalerum or plasma magnesium measurement (mass/volume)2019-07-10 05:32:00* Test Item Value Reference Range Interpretation Comments Magnesium Level (test code = 35177-5) 1.8 [facility] CenterGLUBED2020-02-10 08:55:00* Test Item Value Reference Range Interpretation Comments GLUBED (test code = GLUBED) 122 mg/dL 74-106 H Performed by certified roller operator at [facility] BCFPEU7434-92-45 08:43:00* Test Item Value Reference Range Interpretation Comments GLUBED (test code = GLUBED) 140 mg/dL 74-106 H Performed by certified roller operator at [facility] - XR SHOULDER 1 V [id number] 13:41:00 FAX: Jg Astudillo MD [phone] [place]: St: [facility] FAX: Raphael BeckmanMineshDylan JUNG [phone] Name: BREE ASHTON : 1975 Age/S: 43/M [address] [place] [address] Blvd Unit #: [id number] Loc: [place] [address] Phys: Jg Astudillo MD Acct: [id number] Dis Date: Status: REG CLI PHONE #: [phone] Exam Date: 03/02/2019 1333 FAX #: [phone] Reason: PICC PLACEMENT EXAMS: CPT CODE: [id number] [place]R SHOULDER 1 [place] [address] 1 VIEW LEFT SHOULDER HISTORY: PICC line pl acement.. Left upper extremity PICC line present. Catheter tip pr ojects over the level of the inferior 3rd of the SVC. END IMPRESSION SL: [id number] at 1341 Reported and sig lizette by: Yusuf Burgos M.D. CC: Jg Astudillo MD; Zak Beckman DO Technologist: RT Rashida(Kelly) Trnscrd Date/Time/By: 03/02/2019 (3394) : By: Jaclyn Orig Print D/T: S: 03/02/2019 (1697) PAGE 1 Signed Report [id number] 08:06:00* Test Item Value Reference Range Interpretation Comments GLUBED (test code = GLUBED) 224 mg/dL 74-106 H Performed by certified roller operator at [facility] [id number] 22:57:00* Test Item Value Reference Range Interpretation Comments GLUBED (test code = GLUBED) 62 mg/dL 74-106 L Performed by certified roller operator at [facility] [id number] 18:14:00* Test Item Value Reference Range Interpretation Comments GLUBED (test code = GLUBED) 158 mg/dL 74-106 H Performed by certified roller operator at [facility] [id number] 11:43:00* Test Item Value Reference Range Interpretation Comments GLUBED (test code = GLUBED) 123 mg/dL 74-106 H Performed by certified roller operator at [facility] BASIC METABOLIC [id number] 11:04:00* Test Item Value Reference Range Interpretation [...] CA) 8.5 mg/dL 8.5-10.1 N BASIC METABOLIC [id number] 10:55:00* Test Item Value Reference Range Interpretation [...] code = CA) mg/dL 8.5-10.1 CBC W/AUTO [id number] 10:13:00* Test Item Value Reference Range Interpretation [...] code = NRBC#) 0.00 K/mm3 0.0-0.1 N [id number] 08:19:00* Test Item Value Reference Range Interpretation Comments GLUBED (test code = GLUBED) 81 mg/dL 74-106 N Performed by certified roller operator at [facility] [id number] 22:30:00* Test Item Value Reference Range Interpretation Comments GLUBED (test code = GLUBED) 243 mg/dL 74-106 H Performed by certified roller operator at [facility] [id number] 17:17:00* Test Item Value Reference Range Interpretation Comments GLUBED (test code = GLUBED) 91 mg/dL 74-106 N Performed by certified roller operator at [facility] BLOOD UREA [id number] 13:49:00* Test Item Value Reference Range Interpretation Comments BLOOD UREA NITROGEN (test code = BUN) 8 mg/dL 7-18 N 2 PHELBS GONE UP AND TRIED TO DRAW BLOOD PT SAID COME BACKINFORMED PAIGE Da Silva V.[facility] 02/19/19 1037 [id number] 13:49:00* Test Item Value Reference Range Interpretation Comments CREATININE (test code = CREAT) 0.90 mg/dL 0.7-1.3 N 2 PHELBS GONE UP AND TRIED TO DRAW BLOOD PT SAID COME BACKINFORMED PAIGE Da Silva V.LAB.[facility] 02/19/19 1037 CBC W/AUTO [id number] 13:02:00* Test Item Value Reference Range Interpretation [...] TO COME BACK LATER NOTIFIED PAIGE ALANISKP211/23/19 [id number] 11:50:00* Test Item Value Reference Range Interpretation Comments GLUBED (test code = GLUBED) 147 mg/dL 74-106 H Performed by certified roller operator at [facility] [id number] 10:37:00* Test Item Value Reference Range Interpretation Comments GLUBED (test code = GLUBED) 97 mg/dL 74-106 N Performed by certified roller operator at [facility] [id number] 21:43:00* Test Item Value Reference Range Interpretation Comments GLUBED (test code = GLUBED) 162 mg/dL 74-106 H Performed by certified roller operator at [facility] [id number] 16:06:00* Test Item Value Reference Range Interpretation Comments GLUBED (test code = GLUBED) 98 mg/dL 74-106 N Performed by certified roller operator at [facility] - XR CHEST 1 [id number] 14:36:00 FAX: Olegario Diaz MD [phone] [place]: St: ADM FAX: Iris Liao [phone] FAX: Riley Zavala DO [phone] Name: BREE ASHTON [facility] : 1975 Age/S: 43/M [address] [facility] Unit #: [id number] Loc: V.3070 [place] [address] Phys: Iris Liao NP Acct: [id number] Dis Date: Status: ADM IN ONE #: [phone] Exam Date: 02/18/2019 1339 FAX #: [phone] Reason: PICC TIP CONFIRMATION EXAMS: CPT CODE: [id number] XR CHEST 1 V 91391 REASON FOR EXAM: PICC TIP CONFIRMATION Exam [...] finding from the prior exam. Location: [facility] Electronically Signed by Mulugeta Espinoza MD on at 1436 Reported and signed by: Mulugeta Espinoza MD CC: Olegario Diaz MD; Iris Liao NP; Riley Beckman DO Technologist: Ngozi LYON(R); Lucie Martinez(R) Trnscrd Date/Time/By: 01/29 (1436) : By: [email or web address] [facility] Print D/T: S: 02/18/2019 (1439) PAGE 1 Signed Report [id number] 12:20:00* Test Item Value Reference Range Interpretation Comments GLUBED (test code = GLUBED) 141 mg/dL 74-106 H Performed by certified roller operator at [facility] [id number] 07:15:00* Test Item Value Reference Range Interpretation Comments GLUBED (test code = GLUBED) 129 mg/dL 74-106 H Performed by certified roller operator at [facility] [id number] 00:21:00* Test Item Value Reference Range Interpretation Comments GLUBED (test code = GLUBED) 166 mg/dL 74-106 H Performed by certified roller operator at [facility] [id number] 20:50:00* Test Item Value Reference Range Interpretation Comments GLUBED (test code = GLUBED) 194 mg/dL 74-106 H Performed by certified roller operator at [facility] [id number] 18:19:00* Test Item Value Reference Range Interpretation Comments VANCOMYCIN (test code = VANCO) 25.9 UG/ML 5.0-45.0 N [id number] 16:41:00* Test Item Value Reference Range Interpretation Comments GLUBED (test code = GLUBED) 223 mg/dL 74-106 H Performed by certified roller operator at [facility] [id number] 13:22:00* Test Item Value Reference Range Interpretation Comments GLUBED (test code = GLUBED) 95 mg/dL 74-106 N Performed by certified roller operator at [facility] [id number] 13:22:00* Test Item Value Reference Range Interpretation Comments GLUBED (test code = GLUBED) 61 mg/dL 74-106 L Performed by certified roller operator at [facility] [id number] 13:22:00* Test Item Value Reference Range Interpretation Comments GLUBED (test code = GLUBED) 32 mg/dL 74-106 LL Test performed as P.O.C. by nursing staff.Performed by certified roller operator at [facility] [id number] 13:22:00* Test Item Value Reference Range Interpretation Comments GLUBED (test code = GLUBED) 28 mg/dL 74-106 LL Test performed as P.O.C. by nursing staff.[facility]~ [id number] 11:50:00* Test Item Value Reference Range Interpretation Comments GLUBED (test code = GLUBED) 104 mg/dL 74-106 N Performed by certified roller operator at [facility] CBC W/MANUAL [id number] 09:27:00* Test Item Value Reference Range Interpretation [...] code = IMMAT) 0 % 0-0 N [id number] 07:51:00* Test Item Value Reference Range Interpretation Comments GLUBED (test code = GLUBED) 244 mg/dL 74-106 H Performed by certified roller operator at [facility] BASIC METABOLIC [id number] 07:23:00* Test Item Value Reference Range Interpretation [...] CA) 7.9 mg/dL 8.5-10.1 L BASIC METABOLIC [id number] 07:13:00* Test Item Value Reference Range Interpretation [...] code = CA) mg/dL 8.5-10.1 CBC W/MANUAL [id number] 07:10:00* Test Item Value Reference Range Interpretation [...] MORPHOLOGY (test code = PLTMORPH) CBC W/MANUAL [id number] 07:10:00* Test Item Value Reference Range Interpretation [...] MORPHOLOGY (test code = PLTMORPH) CBC W/MANUAL [id number] 07:10:00* Test Item Value Reference Range Interpretation [...] MORPHOLOGY (test code = PLTMORPH) CBC W/MANUAL [id number] 07:09:00* Test Item Value Reference Range Interpretation [...] MORPHOLOGY (test code = PLTMORPH) CBC W/MANUAL [id number] 07:09:00* Test Item Value Reference Range Interpretation [...] MORPHOLOGY (test code = PLTMORPH) SED RATE [id number] 21:42:00* Test Item Value Reference Range Interpretation Comments SED RATE WESTERGREN (test code = SEDW) 76 mm/hr 0-15 H SED [id number] 21:42:00* Test Item Value Reference Range Interpretation Comments SED RATE (test code = SEDW) 76 mm/hr 0-15 H WINTROBE METHOD: NORMAL RANGE FOR MEN: 0-9 MM/HR WOMAN: 0-20 MM/HR [id number] 20:54:00* Test Item Value Reference Range Interpretation Comments GLUBED (test code = GLUBED) 345 mg/dL 74-106 H Performed by certified roller operator at [facility] [id number] 16:36:00* Test Item Value Reference Range Interpretation Comments GLUBED (test code = GLUBED) 37 mg/dL 74-106 LL Performed by certified roller operator at [facility] [id number] 16:30:00* Test Item Value Reference Range Interpretation Comments GLUBED (test code = GLUBED) 94 mg/dL 74-106 N Performed by certified roller operator at [facility] [id number] 12:04:00* Test Item Value Reference Range Interpretation Comments GLUBED (test code = GLUBED) 236 mg/dL 74-106 H Performed by certified roller operator at [facility] CBC W/MANUAL [id number] 08:49:00* Test Item Value Reference Range Interpretation [...] IMMAT) 0 % 0-0 N BASIC METABOLIC [id number] 08:29:00* Test Item Value Reference Range Interpretation [...] CA) 7.9 mg/dL 8.5-10.1 L CBC W/MANUAL [id number] 08:09:00* Test Item Value Reference Range Interpretation [...] MORPHOLOGY (test code = PLTMORPH) CBC W/MANUAL [id number] 08:09:00* Test Item Value Reference Range Interpretation [...] MORPHOLOGY (test code = PLTMORPH) CBC W/MANUAL [id number] 08:09:00* Test Item Value Reference Range Interpretation [...] MORPHOLOGY (test code = PLTMORPH) CBC W/MANUAL [id number] 08:09:00* Test Item Value Reference Range Interpretation [...] MORPHOLOGY (test code = PLTMORPH) CBC W/MANUAL [id number] 08:09:00* Test Item Value Reference Range Interpretation [...] PLTEST) PLATELET MORPHOLOGY (test code = PLTMORPH) [id number] 07:33:00* Test Item Value Reference Range Interpretation Comments GLUBED (test code = GLUBED) 315 mg/dL 74-106 H Performed by certified roller operator at [facility] [id number] 19:56:00* Test Item Value Reference Range Interpretation Comments GLUBED (test code = GLUBED) 90 mg/dL 74-106 N Performed by certified roller operator at [facility] [id number] 19:07:00* Test Item Value Reference Range Interpretation Comments GLUBED (test code = GLUBED) 107 mg/dL 74-106 H Performed by certified roller operator at [facility] [id number] 19:07:00* Test Item Value Reference Range Interpretation Comments GLUBED (test code = GLUBED) 49 mg/dL 74-106 LL [facility] [id number] 17:50:00* Test Item Value Reference Range Interpretation Comments POTASSIUM (test code = K) 3.0 mmol/L 3.5-5.1 L RE SULT VERIFIED BY REPEAT ANALYSIS [id number] 17:08:00* Test Item Value Reference Range Interpretation Comments GLUBED (test code = GLUBED) 66 mg/dL 74-106 L Performed by certified roller operator at [facility] [id number] 16:57:00* Test Item Value Reference Range Interpretation Comments GLUBED (test code = GLUBED) 76 mg/dL 74-106 N Performed by certified roller operator at [facility] [id number] 13:11:00* Test Item Value Reference Range Interpretation Comments POTASSIUM (test code = K) 5.2 mmol/L 3.5-5.1 H [id number] 11:49:00* Test Item Value Reference Range Interpretation Comments GLUBED (test code = GLUBED) 81 mg/dL 74-106 N Performed by certified roller operator at [facility] [id number] 09:39:00* Test Item Value Reference Range Interpretation Comments GLUBED (test code = GLUBED) 78 mg/dL 74-106 N Performed by certified roller operator at [facility] - MRI LOW EXT W/O CONT [id number] 09:36:00 FAX: Olegario Diaz MD [phone] [place]: St: ADM FAX: Heavenly Kerr DPM [phone] FAX: Riley Zavala DO [phone] Name: BREE ASHTON [facility] : 1975 Age/S: 43/M [address] [facility] Unit #: [id number] Loc: V.3070 [place] [address] Phys: Heavenly Null DPM Acct: [id number] Dis Date: Status: ADM IN [facility] #: [phone] Exam Date: 02/15/2019 0859 FAX #: [phone] Reason: cellulitis EXAMS: CPT CODE: [id number] MR [place] [address] HISTORY: Cellu litis TECHNIQUE: Sagittal T1, sagittal [...] Trnscrd Date/Time/By: 02/15/2019 (0936) : By: [email or web address] [facility] Print D/T: S: 02/15/2019 (0939) PAGE 1 Signed Report GLUBED 2019-02-15 07:22:00* Test Item Value Reference Range Interpretation Comments GLUBED (test code = GLUBED) 57 mg/dL 74-106 L Performed by certified roller operator at [facility] BASIC METABOLIC [id number] 05:15:00* Test Item Value Reference Range Interpretation Comments SODIUM (test code = NA) 136 mmol/L 136-145 N POTASSIUM (test code = K) 2.7 mmol/L 3.5-5.1 LL Re sults called to [id number] by DOT 02/15/19 0515Critical results verified and [...] CA) 8.3 mg/dL 8.5-10.1 L C REACTIVE [id number] 04:21:00* Test Item Value Reference Range Interpretation Comments C REACTIVE PROTEIN (test code = CRP) 27.10 mg/dL 0-0.3 H CBC W/MANUAL [id number] 04:05:00* Test Item Value Reference Range Interpretation [...] IMMAT) 0 % 0-0 N CBC W/MANUAL [id number] 03:30:00* Test Item Value Reference Range Interpretation [...] PLTEST) PLATELET MORPHOLOGY (test code = PLTMORPH) [id number] 20:26:00* Test Item Value Reference Range Interpretation Comments GLUBED (test code = GLUBED) 151 mg/dL 74-106 H Performed by certified roller operator at [facility] [id number] 17:12:00* Test Item Value Reference Range Interpretation Comments GLUBED (test code = GLUBED) 124 mg/dL 74-106 H Performed by certified roller operator at [facility] [id number] 17:07:00* Test Item Value Reference Range Interpretation Comments GLUBED (test code = GLUBED) 81 mg/dL 74-106 N Performed by certified roller operator at [facility] [id number] 12:13:00* Test Item Value Reference Range Interpretation Comments GLUBED (test code = GLUBED) 95 mg/dL 74-106 N Performed by certified roller operator at [facility] CBC W/MANUAL [id number] 08:15:00* Test Item Value Reference Range Interpretation [...] code = IMMAT) 0 % 0-0 N [id number] 07:18:00* Test Item Value Reference Range Interpretation Comments GLUBED (test code = GLUBED) 195 mg/dL 74-106 H Performed by certified roller operator at [facility] BASIC METABOLIC [id number] 07:16:00* Test Item Value Reference Range Interpretation [...] code = CA) 8.4 mg/dL 8.5-10.1 L [id number] 07:16:00* Test Item Value Reference Range Interpretation Comments MAGNESIUM (test code = MAG) 1.7 mg/dL 1.8-2.4 L CBC W/MANUAL [id number] 06:58:00* Test Item Value Reference Range Interpretation [...] MORPHOLOGY (test code = PLTMORPH) CBC W/MANUAL [id number] 06:58:00* Test Item Value Reference Range Interpretation [...] MORPHOLOGY (test code = PLTMORPH) CBC W/MANUAL [id number] 06:58:00* Test Item Value Reference Range Interpretation [...] MORPHOLOGY (test code = PLTMORPH) CBC W/MANUAL [id number] 06:58:00* Test Item Value Reference Range Interpretation [...] MORPHOLOGY (test code = PLTMORPH) CBC W/MANUAL [id number] 06:58:00* Test Item Value Reference Range Interpretation [...] MORPHOLOGY (test code = PLTMORPH) BASIC METABOLIC [id number] 06:56:00* Test Item Value Reference Range Interpretation [...] CALCIUM (test code = CA) mg/dL 8.5-10.1 [id number] 06:56:00* Test Item Value Reference Range Interpretation Comments MAGNESIUM (test code = MAG) mg/dL 1.8-2.4 [id number] 20:42:00* Test Item Value Reference Range Interpretation Comments GLUBED (test code = GLUBED) 261 mg/dL 74-106 H Performed by certified roller operator at [facility] CBC W/MANUAL [id number] 10:55:00* Test Item Value Reference Range Interpretation [...] MORPHOLOGY (test code = PLTMORPH) NORMAL URINALYSIS [id number] 10:38:00* Test Item Value Reference Range Interpretation [...] Clean Catch- XR FOOT 3 + V [id number] 10:33:00 Name: BREE ASHTON [facility] : 1975 Age/S:43 /M [address] [facility] Unit#:[id number] Loc: [place] [address] Phys: Chandan Cage MD Dis Date: PHONE #: [phone] Status: REG ER FAX #: [phone] Exam Date: 02/13/2019 Re ason: left foot swelling EXAMS: CPT CODE: [id number] XR FOOT 3 + [place] [address] CLINICAL HISTORY: left foot swelling TECHNIQUE: AP, [...] (1033) t.SDR.RR31 Orig Print D/T: S: 02/13/2019 (7510) PAGE 1 Signed Report LACTIC [id number] 10:28:00* Test Item Value Reference Range Interpretation Comments LACTIC ACID (test code = LACT) 1.6 MMOL/L 0.4-1.9 N BASIC METABOLIC [id number] 10:28:00* Test Item Value Reference Range Interpretation [...] CA) 8.7 mg/dL 8.4-10.2 N HEPATIC FUNCTION [id number] 10:28:00* Test Item Value Reference Range Interpretation [...] code = ALKP) 120 U/L 38-126 N [id number] 10:28:00* Test Item Value Reference Range Interpretation Comments TROPONIN-I (test code = TROPI) <0.015 ng/mL 0.00-0.056 N URINALYSIS [id number] 10:20:00* Test Item Value Reference Range Interpretation [...] HPF NONE Urine Source? Clean CatchBASIC METABOLIC [id number] 10:19:00* Test Item Value Reference Range Interpretation [...] CA) 8.7 mg/dL 8.4-10.2 N HEPATIC FUNCTION [id number] 10:19:00* Test Item Value Reference Range Interpretation [...] TOTAL (test code = ALKP) IUnit/L 45-117 [id number] 10:19:00* Test Item Value Reference Range Interpretation Comments TROPONIN-I (test code = TROPI) ng/mL 0-0.045 CBC W/MANUAL [id number] 10:13:00* Test Item Value Reference Range Interpretation [...] MORPHOLOGY (test code = PLTMORPH) CBC W/MANUAL [id number] 10:02:00* Test Item Value Reference Range Interpretation [...] MORPHOLOGY (test code = PLTMORPH) CBC W/MANUAL [id number] 10:02:00* Test Item Value Reference Range Interpretation [...] MORPHOLOGY (test code = PLTMORPH) CBC W/MANUAL [id number] 10:02:00* Test Item Value Reference Range Interpretation [...] MORPHOLOGY (test code = PLTMORPH) CBC W/MANUAL [id number] 10:02:00* Test Item Value Reference Range Interpretation [...] code = PLTMORPH) - XR CHEST 1 [id number] 09:56:00 Name: BREE ASHTON [facility] : 1975 Age/S:43 /M [address] [facility] Unit#:[id number] Loc: [place] [address] Phys: Tracy Cage MD Dis Date: PHONE #: [phone] Status: REG ER FAX #: [phone] Exam Date: 02/13/2019 Reason: CODE SEPSIS EXAMS: CPT CODE: [id number] XR CHEST 1 V 16242 REASON FOR EXAM: CODE SEPSIS Exam Order [...] IMPRESSION: No acute cardiopulmonary process. Location: [facility] Elect ronically Signed by Mulugeta Espinoza MD on 02/13/2019 at 0956 Reported and signed by: Mulugeta Espinoza MD CC: Tracy Cage MD; Keeley Beckman DO Technologist: Stone Lund RT(R)(CT) Trnscrpt Data: 02/13/2019 (0956) t.SDR.RR31 Orig Print D/T: S: 02/13/2019 (0906) PAGE 1 Signed Report [id number] 16:17:00* Test Item Value Reference Range Interpretation Comments GLUBED (test code = GLUBED) 187 mg/dL 74-106 H Performed by certified roller operator at [facility] [id number] 11:57:00* Test Item Value Reference Range Interpretation Comments GLUBED (test code = GLUBED) 147 mg/dL 74-106 H Performed by certified roller operator at [facility] [id number] 07:34:00* Test Item Value Reference Range Interpretation Comments GLUBED (test code = GLUBED) 110 mg/dL 74-106 H Performed by certified roller operator at [facility] CBC W/MANUAL [id number] 05:59:00* Test Item Value Reference Range Interpretation [...] IMMAT) 0 % 0-0 N BASIC METABOLIC [id number] 05:25:00* Test Item Value Reference Range Interpretation Comments SODIUM (test code = NA) 138 mmol/L 136-145 N POTASSIUM (test code = K) 2.7 mmol/L 3.5-5.1 LL Re sults called to [id number] by DOT 02/12/19 0525Critical results verified and [...] CA) 8.4 mg/dL 8.5-10.1 L CBC W/MANUAL [id number] 05:04:00* Test Item Value Reference Range Interpretation [...] MORPHOLOGY (test code = PLTMORPH) CBC W/MANUAL [id number] 05:04:00* Test Item Value Reference Range Interpretation [...] MORPHOLOGY (test code = PLTMORPH) CBC W/MANUAL [id number] 05:04:00* Test Item Value Reference Range Interpretation [...] MORPHOLOGY (test code = PLTMORPH) CBC W/MANUAL [id number] 05:04:00* Test Item Value Reference Range Interpretation [...] MORPHOLOGY (test code = PLTMORPH) CBC W/MANUAL [id number] 05:04:00* Test Item Value Reference Range Interpretation [...] interpreted taking into account the patients history. [id number] 19:42:00* Test Item Value Reference Range Interpretation Comments GLUBED (test code = GLUBED) 131 mg/dL 74-106 H Performed by certified roller operator at [facility] LACTIC [id number] 19:38:00* Test Item Value Reference Range Interpretation Comments LACTIC ACID (test code = LACT) 0.7 mmol/L 0.4-1.9 N [id number] 18:44:00* Test Item Value Reference Range Interpretation Comments GLUBED (test code = GLUBED) 129 mg/dL 74-106 H Performed by certified roller operator at [facility] [id number] 16:34:00* Test Item Value Reference Range Interpretation Comments GLUBED (test code = GLUBED) 66 mg/dL 74-106 L Performed by certified roller operator at [facility] [id number] 12:07:00* Test Item Value Reference Range Interpretation Comments GLUBED (test code = GLUBED) 285 mg/dL 74-106 H Performed by certified roller operator at [facility] - XR CHEST 1 [id number] 08:53:00 FAX: Faith Cook MD [phone] [place]: B St: ADM FAX: Raphael BcekmanRiley [phone] Name: BREE ASHTON [facility] : 1975 Age/S: 43/M [address] [facility] Unit #: [id number] Loc: V.3017 [place] [address] Phys: Faith Roy MD Acct: [id number] Dis Date: Status: ADM IN PHONE #: [phone] Exam Date: 02/11/2019 0830 FAX #: [phone] Reason: Leukocytosis EXAMS: CPT CODE: [id number] XR CHEST 1 V 80697 HISTORY: Leukocytosis. COMPARISON: January 12, 2018. Location: [facility]. No acute infiltrates, effusion or congestion is noted. Mild cardiomegaly. IMPRESSION: No acute infiltrates, effusion or congestion. at 0853 Reported and signed by: Alexandr Pacheco M.D. CC: Faith Roy MD; Riley Beckman DO Technologist: BERNABE NEWELL JR; Юлия Diez Trnscrd Date/Time/By: 02/11/2019 (0853) : By: [email or web address] Orig Print D/T: S: 02/11/2019 (0856) PAGE 1 Signed Report [id number] 07:52:00* Test Item Value Reference Range Interpretation Comments GLUBED (test code = GLUBED) 293 mg/dL 74-106 H Performed by certified roller operator at [facility] CBC W/MANUAL [id number] 06:45:00* Test Item Value Reference Range Interpretation [...] IMMAT) 0 % 0-0 N BASIC METABOLIC [id number] 06:37:00* Test Item Value Reference Range Interpretation [...] CA) 8.6 mg/dL 8.5-10.1 N BASIC METABOLIC [id number] 06:31:00* Test Item Value Reference Range Interpretation [...] code = CA) mg/dL 8.5-10.1 CBC W/MANUAL [id number] 06:18:00* Test Item Value Reference Range Interpretation [...] MORPHOLOGY (test code = PLTMORPH) CBC W/MANUAL [id number] 06:18:00* Test Item Value Reference Range Interpretation [...] MORPHOLOGY (test code = PLTMORPH) CBC W/MANUAL [id number] 06:18:00* Test Item Value Reference Range Interpretation [...] MORPHOLOGY (test code = PLTMORPH) CBC W/MANUAL [id number] 06:18:00* Test Item Value Reference Range Interpretation [...] MORPHOLOGY (test code = PLTMORPH) CBC W/MANUAL [id number] 06:18:00* Test Item Value Reference Range Interpretation [...] PLATELET MORPHOLOGY (test code = PLTMORPH) URINALYSIS [id number] 02:01:00* Test Item Value Reference Range Interpretation [...] BE COLLECTED BY NURSEDRUGS OF ABUSE SCREEN [id number] 02:01:00* Test Item Value Reference Range Interpretation [...] Source? VoidedSAMPLE TO BE COLLECTED BY NURSEURINALYSIS [id number] 01:45:00* Test Item Value Reference Range Interpretation [...] BE COLLECTED BY NURSEDRUGS OF ABUSE SCREEN [id number] 01:45:00* Test Item Value Reference Range Interpretation [...] 2143Urine Source? VoidedSAMPLE TO BE COLLECTED BY [id number] 23:31:00* Test Item Value Reference Range Interpretation Comments GLUBED (test code = GLUBED) 223 mg/dL 74-106 H Performed by certified roller operator at [facility] [id number] 18:09:00* Test Item Value Reference Range Interpretation Comments GLUBED (test code = GLUBED) 201 mg/dL 74-106 H Performed by certified roller operator at [facility] [id number] 11:27:00* Test Item Value Reference Range Interpretation Comments GLUBED (test code = GLUBED) 291 mg/dL 74-106 H Performed by certified roller operator at [facility] [id number] 08:25:00* Test Item Value Reference Range Interpretation Comments GLUBED (test code = GLUBED) 288 mg/dL 74-106 H Performed by certified roller operator at [facility] - XR ABDOMEN AP 1 [id number] 08:01:00 FAX: Bobby Self MD [place]: B St: ADM FAX: Raphael BeckmanMineshDylan JUNG [phone] Name: BREE ASHTON [facility] : 1975 Age/S: 43/M [address] Unit #: [id number] Loc: V.3[address] [place] [address] Phys: Bobby Self MD Acct: [id number] Dis Date: Status: ADM IN PHONE #: [phone] Exam Date: 02/10/2019 0805 FAX #: [phone] Reason: abdominal pain nausea and vomiting EXAMS: CPT CODE: [id number] XR ABDOMEN AP 1 V 25525 HISTORY: abdominal pain nausea and vomiting TECHNIQUE: [...] into account the patients history. BASIC METABOLIC [id number] 00:47:00* Test Item Value Reference Range Interpretation [...] CA) 9.1 mg/dL 8.5-10.1 N HEPATIC FUNCTION [id number] 00:47:00* Test Item Value Reference Range Interpretation [...] reference range due to change in reagent. [id number] 00:47:00* Test Item Value Reference Range Interpretation Comments LIPASE (test code = LIP) < 10 U/L 73.0-393.0 L CBC W/O [id number] 00:11:00* Test Item Value Reference Range Interpretation [...] code = MPV) 9.7 fL 6.7-11.0 N [id number] 07:24:00* Test Item Value Reference Range Interpretation Comments GLUBED (test code = GLUBED) 269 mg/dL 74-106 H Performed by certified roller operator at [facility] [id number] 20:19:00* Test Item Value Reference Range Interpretation Comments GLUBED (test code = GLUBED) 199 mg/dL 74-106 H Performed by certified roller operator at [facility] [id number] 16:56:00* Test Item Value Reference Range Interpretation Comments GLUBED (test code = GLUBED) 153 mg/dL 74-106 H Performed by certified roller operator at [facility] [id number] 11:42:00* Test Item Value Reference Range Interpretation Comments GLUBED (test code = GLUBED) 231 mg/dL 74-106 H Performed by certified roller operator at [facility] [id number] 08:17:00* Test Item Value Reference Range Interpretation Comments GLUBED (test code = GLUBED) 160 mg/dL 74-106 H Performed by certified roller operator at [facility] CBC W/AUTO [id number] 06:43:00* Test Item Value Reference Range Interpretation [...] NRBC#) 0.00 K/mm3 0.0-0.1 N BASIC METABOLIC [id number] 06:43:00* Test Item Value Reference Range Interpretation [...] CA) 8.8 mg/dL 8.5-10.1 N BASIC METABOLIC [id number] 06:26:00* Test Item Value Reference Range Interpretation [...] (test code = CA) mg/dL 8.5-10.1 URINALYSIS [id number] 23:07:00* Test Item Value Reference Range Interpretation [...] Urine Source? Clean CatchDRUGS OF ABUSE SCREEN [id number] 23:07:00* Test Item Value Reference Range Interpretation [...] NEGATIVE <300 ng/mL Urine Source? Clean CatchURINALYSIS [id number] 22:44:00* Test Item Value Reference Range Interpretation [...] Urine Source? Clean CatchDRUGS OF ABUSE SCREEN [id number] 22:44:00* Test Item Value Reference Range Interpretation [...] <300 ng/mL Urine Source? Clean CatchBASIC METABOLIC [id number] 18:12:00* Test Item Value Reference Range Interpretation [...] CA) 10.0 mg/dL 8.5-10.1 N HEPATIC FUNCTION [id number] 18:12:00* Test Item Value Reference Range Interpretation [...] reference range due to change in reagent. [id number] 18:12:00* Test Item Value Reference Range Interpretation Comments LIPASE (test code = LIP) < 10 U/L 73.0-393.0 L BASIC METABOLIC [id number] 18:04:00* Test Item Value Reference Range Interpretation [...] code = CA) mg/dL 8.5-10.1 HEPATIC FUNCTION [id number] 18:04:00* Test Item Value Reference Range Interpretation [...] TOTAL (test code = ALKP) IUnit/L 45-117 [id number] 18:04:00* Test Item Value Reference Range Interpretation Comments LIPASE (test code = LIP) U/L 73.0-393.0 CBC W/O [id number] 18:00:00* Test Item Value Reference Range Interpretation [...] code = MPV) 10.1 fL 6.7-11.0 N [id number] 17:11:00* Test Item Value Reference Range Interpretation Comments GLUBED (test code = GLUBED) 108 mg/dL 74-106 H Performed by certified roller operator at [facility] [id number] 14:49:00 RUN DATE: 12/21/18 [employer] [facility] PAGE 1 RUN TIME: 1449 Specimen Inqui ry RUN USER: INTERFACE PATIENT: BREE ASHTON ACCT #: [id number] LOC: Jason3SDELIA U #: [id number] AGE/SX: 43/M ROOM: [facility] RE12/16/18REG DR: Olegario Diaz MD : 75 BED: A DIS: 12/19/18 STATUS: DIS IN TLOC: SPEC #: [id number] RECD: 12/20/18 STATUS: SOUIsis REQ #: [id number] HUY: 12/18/18- [facility] DR: Sav Coffey MD ENTERED: 12/20/18 SP TYPE: NIKITA TIM DR: Levi Natarajan i, MD, Shao-Chun DOORDERED: GROSS COPIES TO: Levi Lakhani MD [address] [place] [address] Sav Coffey MD [address] [place] [address] Leslye Beckmansuma JUNG [address] [place] [address] MARKERS: ABNORMAL TISSUE, GALLBL ADDER PROCEDURES: LINDA (12/21/18-1158) TISSUES: GALLBLADDER, NOS CLINICAL HISTORY COLLECTION DATE: 12/18/18 CHOLECYSTITIS FIN AL DIAGNOSIS Gallbladder, cholecystectomy: PATCHY MILD CHRONIC ACALCUL OUS CHOLECYSTITIS NEGATIVE FOR MALIGNANCY RRB/sm A 14628 CONTINUED ON NEXT PAGE RUN DATE : 12/21/18 [facility] PAGE 2 RUN TIME: 1449 Specimen Inquiry RUN USER: INTERFACE SPEC #: [id number] PATIENT: BREE ASHTON #V [id number] (Continued) MACROSCOPIC The specimen is r eceived [...] thickness. No foc al lesions are identified. Sql [employer] Developer tissue is submitted in a single violeta sette. GROSS PERFORMED AT [facility] [address] [place] [address] [phone] MICROSCOPIC All of the stains, including any controls performed, st ain appropriately. MICROSCOPIC PERFORMED AT [facility] [address] [place] [address] (J) PERFORMING SITE Diagnosis performed at: [facility], [place] [address] [place] [address] Signed SIGNATMARIANO E ON FILE Dino Patton MD 12/21/18 1449 END OF REPORT [id number] 11:45:00* Test Item Value Reference Range Interpretation Comments GLUBED (test code = GLUBED) 238 mg/dL 74-106 H Performed by certified roller operator at [facility] BASIC METABOLIC [id number] 08:28:00* Test Item Value Reference Range Interpretation [...] code = CA) 8.2 mg/dL 8.5-10.1 L [id number] 08:28:00* Test Item Value Reference Range Interpretation Comments MAGNESIUM (test code = MAG) 1.5 mg/dL 1.8-2.4 L BASIC METABOLIC [id number] 08:21:00* Test Item Value Reference Range Interpretation [...] CALCIUM (test code = CA) mg/dL 8.5-10.1 [id number] 08:21:00* Test Item Value Reference Range Interpretation Comments MAGNESIUM (test code = MAG) mg/dL 1.8-2.4 CBC W/AUTO [id number] 07:56:00* Test Item Value Reference Range Interpretation [...] DIFF REQUIRED (test code = MDIFF) NO [id number] 07:38:00* Test Item Value Reference Range Interpretation Comments GLUBED (test code = GLUBED) 277 mg/dL 74-106 H Performed by certified roller operator at [facility] [id number] 20:34:00* Test Item Value Reference Range Interpretation Comments GLUBED (test code = GLUBED) 165 mg/dL 74-106 H Performed by certified roller operator at [facility] [id number] 19:18:00* Test Item Value Reference Range Interpretation Comments GLUBED (test code = GLUBED) 203 mg/dL 74-106 H Performed by certified roller operator at [facility] BASIC METABOLIC [id number] 11:47:00* Test Item Value Reference Range Interpretation [...] mg/dL 8.5-10.1 L PT IN SURGERY PAIGE YFF3199 V.LAB.2 12/18/18 [id number] 11:42:00* Test Item Value Reference Range Interpretation Comments GLUBED (test code = GLUBED) 360 mg/dL 74-106 H Performed by certified roller operator at [facility] BASIC METABOLIC [id number] 11:41:00* Test Item Value Reference Range Interpretation [...] CA) mg/dL 8.5-10.1 PT IN SURGERY RN KSV6459 V.LAB.[facility] 12/18/18 0926CBC W/AUTO [id number] 11:11:00* Test Item Value Reference Range Interpretation [...] = MDIFF) NO PT IN SURGERY RN UDJ1146 V.LAB.KP2 12/18/18 [id number] 03:55:00* Test Item Value Reference Range Interpretation Comments GLUBED (test code = GLUBED) 269 mg/dL 74-106 H Performed by certified roller operator at [facility] [id number] 23:58:00* Test Item Value Reference Range Interpretation Comments GLUBED (test code = GLUBED) 233 mg/dL 74-106 H Performed by certified roller operator at [facility] [id number] 09:16:00* Test Item Value Reference Range Interpretation Comments GLUBED (test code = GLUBED) 179 mg/dL 74-106 H Performed by certified roller operator at [facility] BASIC METABOLIC [id number] 06:40:00* Test Item Value Reference Range Interpretation Comments SODIUM (test code = NA) 141 mmol/L 136-145 N POTASSIUM (test code = K) 2.8 mmol/L 3.5-5.1 LL Re sults called [place] [address] by NIKI 12/17/18 0639Critical results verified and [...] code = CA) 8.3 mg/dL 8.5-10.1 L [id number] 06:40:00* Test Item Value Reference Range Interpretation Comments MAGNESIUM (test code = MAG) 1.6 mg/dL 1.8-2.4 L B-TYPE NATRIURETIC [id number] 06:34:00* Test Item Value Reference Range Interpretation Comments B-TYPE NATRIURETIC PEPTIDE (test code = BNP) 128.51 pgram/mL 0-100 H CBC W/AUTO [id number] 05:33:00* Test Item Value Reference Range Interpretation [...] code = NRBC#) 0.00 K/mm3 0.0-0.1 N [id number] 02:55:00* Test Item Value Reference Range Interpretation Comments GLUBED (test code = GLUBED) 102 mg/dL 74-106 N Performed by certified roller operator at [facility] [id number] 21:18:00* Test Item Value Reference Range Interpretation Comments GLUBED (test code = GLUBED) 224 mg/dL 74-106 H Performed by certified roller operator at [facility] [id number] 16:43:00* Test Item Value Reference Range Interpretation Comments GLUBED (test code = GLUBED) 158 mg/dL 74-106 H Performed by certified roller operator at [facility] DRUGS OF ABUSE SCREEN [id number] 14:45:00* Test Item Value Reference Range Interpretation [...] NEGATIVE <300 ng/mL DRUGS OF ABUSE SCREEN [id number] 14:24:00* Test Item Value Reference Range Interpretation [...] ng/mL - HEPA IMAG INCL GB W [id number] 14:14:00 FAX: Leia Kendrick MSN [place]: B St: ADM FAX: Bobby Self MD FAX: Riley Zavala DO [phone] Name: BREE ASHTON [facility] : 1975 Age/S: 43/M [address] [facility] Unit #: [id number] Loc: V.30[address] [place] [address] Phys: Leia Kendrick MSN Acct: [id number] Dis Date: Status: ADM IN ONE #: [phone] Exam Date: 12/16/2018 1412 FAX #: [phone] Reason: recurrent n/v EXAMS: CPT CODE: [id number] PA IMAG INCL GB W PHA 15219 HISTORY: recur rent n/v EXAM: NUCLEAR MEDICINE [...] By: Aden.RR31 Orig Print D/T: S: 12/16/2018 (4799) PAGE 1 Signed Report [id number] 11:12:00* Test Item Value Reference Range Interpretation Comments GLUBED (test code = GLUBED) 133 mg/dL 74-106 H Performed by certified roller operator at [facility] - US ABDOMEN [id number] 10:25:00 Name: BREE ASHTON [facility] : 1975 Age/S: 43 / M [address] Unit #: [id number] Loc: [facility] [place] [address] Phys: Leia Kendrick Acct: [id number] Dis Date: Status: ADM IN PHONE #: [phone] Exam Date: 12/16/2018 09 FAX #: [phone] Reason: n/v EXAMS: CPT CODE: [id number] US ABDOMEN COMPLETE 06755 REASON FOR EXAM: n/v EXAM ORDER DATE: [...] 1 Signed Report (CONTINUED) Name: BREE ASHTON [facility] : 1975 Age/S: 43 / M [address] [facility] Unit #: [id number] Loc: [place] [address] Phys: Leia Kendrick MSN Acct: [id number] Dis Date: Status: ADM IN PHONE #: [phone] Exam Date: 12/16 0940 FAX #: [phone] Reason: n/v EXAMS: CPT CODE: [id number] US ABDOMEN COMPLETE 76 700 <Continued> Left kidney: parenchyma echogenicity: Normal echogenicity size: 11.8 x 5.6 x 5.8 cm stones: none cysts/masses: none hydronephrosis: none Spleen: size: 7.9 x 2.6 x 2.8 cm cysts/masses: Parenchyma is sonographically unremarkable. Ascites/pleural effusions: None IMPRESSION: Sonographically unremarkable abdomen. at 1025 Reported and signed by: Mulugeta Espinoza MD CC: Leia Kednrick MSN; Bobby Self MD; Riley Beckman DO Technologist: NOEMY OLVERA RT(R),CATALINA Trnnjb Date/Time: 12/16/2018 (1025) t.SDR.RR31 Orig Print D/T: S: 12/16/2018 (1023) Probe: PAGE 2 Signed Report [id number] 07:04:00* Test Item Value Reference Range Interpretation Comments GLUBED (test code = GLUBED) 177 mg/dL 74-106 H Performed by certified roller operator at [facility] URINALYSIS [id number] 00:25:00* Test Item Value Reference Range Interpretation [...] FEW A Urine Source? Clean CatchBASIC METABOLIC [id number] 00:22:00* Test Item Value Reference Range Interpretation [...] CA) 8.8 mg/dL 8.5-10.1 N HEPATIC FUNCTION [id number] 00:22:00* Test Item Value Reference Range Interpretation [...] reference range due to change in reagent. [id number] 00:22:00* Test Item Value Reference Range Interpretation Comments LIPASE (test code = LIP) < 10 U/L 73.0-393.0 L [id number] 00:22:00* Test Item Value Reference Range Interpretation Comments TROPONIN-I (test code = TROPI) <0.015 ng/mL 0-0.045 N BASIC METABOLIC [id number] 00:12:00* Test Item Value Reference Range Interpretation [...] code = CA) mg/dL 8.5-10.1 HEPATIC FUNCTION [id number] 00:12:00* Test Item Value Reference Range Interpretation [...] TOTAL (test code = ALKP) IUnit/L 45-117 [id number] 00:12:00* Test Item Value Reference Range Interpretation Comments LIPASE (test code = LIP) U/L 73.0-393.0 [id number] 00:12:00* Test Item Value Reference Range Interpretation Comments TROPONIN-I (test code = TROPI) ng/mL 0-0.045 CBC W/O [id number] 00:06:00* Test Item Value Reference Range Interpretation [...] MPV) 10.2 fL 6.7-11.0 N BASIC METABOLIC [id number] 08:09:00* Test Item Value Reference Range Interpretation [...] CA) 9.0 mg/dL 8.5-10.1 N HEPATIC FUNCTION [id number] 08:09:00* Test Item Value Reference Range Interpretation [...] reference range due to change in reagent. [id number] 08:09:00* Test Item Value Reference Range Interpretation Comments LIPASE (test code = LIP) < 10 U/L 73.0-393.0 L [id number] 08:09:00* Test Item Value Reference Range Interpretation Comments TROPONIN-I (test code = TROPI) <0.015 ng/mL 0-0.045 N BASIC METABOLIC [id number] 07:52:00* Test Item Value Reference Range Interpretation [...] code = CA) mg/dL 8.5-10.1 HEPATIC FUNCTION [id number] 07:52:00* Test Item Value Reference Range Interpretation [...] TOTAL (test code = ALKP) IUnit/L 45-117 [id number] 07:52:00* Test Item Value Reference Range Interpretation Comments LIPASE (test code = LIP) U/L 73.0-393.0 [id number] 07:52:00* Test Item Value Reference Range Interpretation Comments TROPONIN-I (test code = TROPI) ng/mL 0-0.045 CBC W/O [id number] 07:40:00* Test Item Value Reference Range Interpretation [...] = MPV) 10.5 fL 6.7-11.0 N POCT-GLUCOSE [id number] 17:19:00* Test Item Value Reference Range Interpretation Comments POC-GLUCOSE METER (BEAKER) (test code = 1538) 266 mg/dL 70-110 H TESTED AT [facility] [address] [facility] [address] POCT-GLUCOSE [id number] 12:17:00* Test Item Value Reference Range Interpretation Comments POC-GLUCOSE METER (BEAKER) (test code = 1538) 240 mg/dL 70-110 H TESTED AT [facility] [address] [facility] [address] POCT-GLUCOSE [id number] 08:12:00* Test Item Value Reference Range Interpretation Comments POC-GLUCOSE METER (BEAKER) (test code = 1538) 184 mg/dL 70-110 H TESTED AT [facility] [address] [facility] [address] [id number] 06:18:00* Test Item Value Reference Range Interpretation Comments PHOSPHORUS (BEAKER) (test code = 604) 2.2 mg/dL 2.3-4.7 L KGGLYGXTN8105-03-02 06:18:00* Test Item Value Reference Range Interpretation Comments MAGNESIUM (BEAKER) (test code = 627) 1.6 mg/dL 1.6-2.6 BASIC METABOLIC [id number] 06:18:00* Test Item Value Reference Range Interpretation [...] DIALYSIS PATIENTS. CBC W/PLT COUNT & AUTO [id number] 06:16:00* Test Item Value Reference Range Interpretation [...] code = 2801) 0 % 0-1 POCT-GLUCOSE [id number] 21:15:00* Test Item Value Reference Range Interpretation Comments POC-GLUCOSE METER (BEAKER) (test code = 1538) 307 mg/dL 70-110 H Notified RN or MD Patient refused repeat test/TESTED AT [facility] [address] [facility] [address] HEMOGLOBIN [id number] 19:48:00* Test Item Value Reference Range Interpretation Comments HEMOGLOBIN A1C (BEAKER) (test code = 368) 8.4 % 4.3-6.1 H LIPID [id number] 16:17:00* Test Item Value Reference Range Interpretation [...] High 160-189 Very High >=190 BASIC METABOLIC [id number] 16:17:00* Test Item Value Reference Range Interpretation [...] NOT APPLICABLE FOR DIALYSIS PATIENTS. HEPATIC FUNCTION [id number] 16:17:00* Test Item Value Reference Range Interpretation [...] U/L 6-55 CBC W/PLT COUNT & AUTO [id number] 16:07:00* Test Item Value Reference Range Interpretation [...] code = 2801) 0 % 0-1 POCT-GLUCOSE [id number] 16:01:00* Test Item Value Reference Range Interpretation Comments POC-GLUCOSE METER (BEAKER) (test code = 1538) 265 mg/dL 70-110 H TESTED AT [facility] [address] [facility] [address] POCT-GLUCOSE [id number] 12:34:00* Test Item Value Reference Range Interpretation Comments POC-GLUCOSE METER (BEAKER) (test code = 1538) 271 mg/dL 70-110 H TESTED AT [place] [address] [facility] [address] Urine color hmewiwqxdnnik0467-92-89 08:40:00* Test Item Value Reference Range Interpretation Comments Urine Color (test code = 5778-6) YELLOW [facility] [id number] 08:40:00* Test Item Value Reference Range Interpretation Comments Urine Clarity (test code = 76761-9) CLEAR [facility] Urine by Test strip 2018-11-24 08:40:00* Test Item Value Reference Range Interpretation Comments Urine Specific [place] (test code = 5811-5) 1.025 [facility] by automated test [id number] 08:40:00* Test Item Value Reference Range Interpretation Comments Urine pH (test code = 24569-0) 6 [facility] leukocyte esterase detection by automated test [id number] 08:40:00* Test Item Value Reference Range Interpretation Comments Urine Leukocyte Esterase (test code = 58702-8) NEGATIVE [facility] nitrite detection by automated test [id number] 08:40:00* Test Item Value Reference Range Interpretation Comments Urine Nitrite (test code = 87997-9) NEGATIVE [facility] protein detection by automated test [id number] 08:40:00* Test Item Value Reference Range Interpretation Comments Urine Protein (test code = 72661-5) NEGATIVE [facility] glucose detection by automated test [id number] 08:40:00* Test Item Value Reference Range Interpretation Comments Urine Glucose (UA) (test code = 37371-9) NEGATIVE [facility] ketones detection by automated test rfjtm6060-77-36 08:40:00* Test Item Value Reference Range Interpretation Comments Urine Ketones (test code = 91848-9) 1+ [facility] urobilinogen measurement by test strip (mass/volume)2018-11-24 08:40:00* Test Item Value Reference Range Interpretation Comments Urine Urobilinogen (test code = 99604-1) 0.2 [facility] total bilirubin qlmqhqimx3658-68-40 08:40:00* Test Item Value Reference Range Interpretation Comments Urine Bilirubin (test code = 1977-8) NEGATIVE [facility] erythrocytes qebhgruue8748-43-60 08:40:00* Test Item Value Reference Range Interpretation Comments Urine Blood (test code = 05352-8) NEGATIVE [facility] CenterAutomated urine sediment leukocyte count by microscopy (number/high power field)2018-11-24 08:40:00* Test Item Value Reference Range Interpretation Comments Urine WBC (test code = 5821-4) 6-10 [facility] Center[facility]rythrocytes detection in urine sediment by light hizduawejs9594-55-09 08:40:00* Test Item Value Reference Range Interpretation Comments Urine RBC (test code = 48071-9) 0-5 [facility] Center[facility]acteria detection in urine sediment by light rboghdrwvf8617-30-33 08:40:00* Test Item Value Reference Range Interpretation Comments Urine Bacteria (test code = 21960-1) MODERATE [facility] CenterEpithelial cells detection in urine sediment by light prlbtmhfaw4756-18-90 08:40:00* Test Item Value Reference Range Interpretation Comments Urine Epithelial Cells (test code = 49830-0) FEW [facility] CenterC[facility] 1 VEW - [id number] 18:41:00 [facility] [address] [place] [address] Patient Name: BREE ASHTON MR #: [id number] : 1975 Age/Sex: 42/M Req #: [id number] Adm Physician: ISACC JAVED MD Ordered by: NEIL PEREZ MD Report #: [id number] Location: [facility] Room/Bed: [place] [address] Procedure: [id number] HOPD/CXR 1 VEW - HOPD Exam Date: 11/22/18 Exam Time: 1755 REPORT STATUS: Signed EXA MINATION: [facility]: None INDICATION: Hemateme sis [id number] DISCUSSION: Frontal view of the chest [...] on 11/22/181843 COPY TO: NEIL PEREZ MD [id number] 11:31:00* Test Item Value Reference Range Interpretation Comments GLUBED (test code = GLUBED) 163 mg/dL 74-106 H Performed by certified roller operator at [facility] [id number] 05:52:00* Test Item Value Reference Range Interpretation Comments GLUBED (test code = GLUBED) 339 mg/dL 74-106 H Performed by certified roller operator at [facility] BASIC METABOLIC [id number] 05:04:00* Test Item Value Reference Range Interpretation [...] code = CA) 8.6 mg/dL 8.5-10.1 N TDGCBWYJTB0666-00-73 05:04:00* Test Item Value Reference Range Interpretation Comments PHOSPHORUS (test code = PHOS) 2.5 mg/dL 2.5-4.9 N [id number] 05:04:00* Test Item Value Reference Range Interpretation Comments MAGNESIUM (test code = MAG) 1.7 mg/dL 1.8-2.4 L CBC W/AUTO [id number] 04:58:00* Test Item Value Reference Range Interpretation [...] (test code = MDIFF) NO BASIC METABOLIC [id number] 04:54:00* Test Item Value Reference Range Interpretation [...] CALCIUM (test code = CA) mg/dL 8.5-10.1 ZNMQDYPMKE8440-11-09 04:54:00* Test Item Value Reference Range Interpretation Comments PHOSPHORUS (test code = PHOS) mg/dL 2.5-4.9 [id number] 04:54:00* Test Item Value Reference Range Interpretation Comments MAGNESIUM (test code = MAG) mg/dL 1.8-2.4 [id number] 21:18:00* Test Item Value Reference Range Interpretation Comments GLUBED (test code = GLUBED) 363 mg/dL 74-106 H Performed by certified roller operator at [facility] [id number] 18:20:00* Test Item Value Reference Range Interpretation Comments GLYCOSYLATED HEMOGLOBIN (HA1C) (test code = GLYHGB) 9.0 % HbA1 4. 8-6.0 H ESTIMATED AVERAGE GLUCOSE (test code = EAG) 212 MG/DL [id number] 17:42:00* Test Item Value Reference Range Interpretation Comments GLUBED (test code = GLUBED) 216 mg/dL 74-106 H Performed by certified roller operator at [facility] [id number] 13:09:00* Test Item Value Reference Range Interpretation Comments GLUBED (test code = GLUBED) 209 mg/dL 74-106 H Performed by certified roller operator at [facility] LACTIC [id number] 08:53:00* Test Item Value Reference Range Interpretation [...] taking into account the patients history. PROTHROMBIN [id number] 07:23:00* Test Item Value Reference Range Interpretation [...] (2.5-3.5) IS PATIENT ON ANTICOAGULANTS? NTHROMBOPLASTIN TIME [id number] 07:23:00* Test Item Value Reference Range Interpretation Comments THROMBOPLASTIN TIME PARTIAL (test code = PTT) 26.2 seconds 25.0-36. 5 N IS PATIENT ON ANTICOAGULANTS? NBASIC METABOLIC [id number] 06:41:00* Test Item Value Reference Range Interpretation [...] CA) 9.7 mg/dL 8.5-10.1 N HEPATIC FUNCTION [id number] 06:41:00* Test Item Value Reference Range Interpretation [...] reference range due to change in reagent. [id number] 06:41:00* Test Item Value Reference Range Interpretation Comments LIPASE (test code = LIP) 16 U/L 73.0-393.0 L [id number] 06:41:00* Test Item Value Reference Range Interpretation Comments TROPONIN-I (test code = TROPI) <0.015 ng/mL 0-0.045 N BASIC METABOLIC [id number] 06:27:00* Test Item Value Reference Range Interpretation [...] code = CA) mg/dL 8.5-10.1 HEPATIC FUNCTION [id number] 06:27:00* Test Item Value Reference Range Interpretation [...] TOTAL (test code = ALKP) IUnit/L 45-117 [id number] 06:27:00* Test Item Value Reference Range Interpretation Comments LIPASE (test code = LIP) U/L 73.0-393.0 [id number] 06:27:00* Test Item Value Reference Range Interpretation Comments TROPONIN-I (test code = TROPI) ng/mL 0-0.045 POC LACTIC [id number] 06:23:00* Test Item Value Reference Range Interpretation Comments POC LACTIC ACID (test code = POCLAC) 1.46 MMOL/L 0.4-2.2 N CBC W/O [id number] 06:22:00* Test Item Value Reference Range Interpretation [...] = MPV) 11.6 fL 6.7-11.0 H GASTRIC [id number] 00:53:00 [place] [address] Patient Name: BREE ASHTON MR #: [id number] : 1975 Age/Sex: 42/M Req #: [id number] Adm Physician: Ordered by: TAVIA GARCIA MD Report #: [id number] Location: [place] Room/Bed: Procedure: N M/GASTRIC EMPTYING Exam Date: Exam Time: REPORT STATUS: Signed Solid-phase gastric emptying study Reason for examination: GERD with esophagitis; gastritis The protocol used for this study is based on the Consensus Recommendations for Gastric Scintigraphy by the [place] [employer] and the Society [...] on 09/21/1856 COPY TO: TAVIA GARCIA MD [id number] 11:39:00* Test Item Value Reference Range Interpretation Comments GLUBED (test code = GLUBED) 102 mg/dL 74-106 N Performed by certified roller operator at [facility] BASIC METABOLIC [id number] 11:27:00* Test Item Value Reference Range Interpretation [...] CA) 8.6 mg/dL 8.5-10.1 N CBC W/AUTO [id number] 11:02:00* Test Item Value Reference Range Interpretation [...] DIFF REQUIRED (test code = MDIFF) NO [id number] 07:41:00* Test Item Value Reference Range Interpretation Comments GLUBED (test code = GLUBED) 111 mg/dL 74-106 H Performed by certified roller operator at [facility] [id number] 21:20:00* Test Item Value Reference Range Interpretation Comments GLUBED (test code = GLUBED) 201 mg/dL 74-106 H Performed by certified roller operator at [facility] [id number] 16:36:00* Test Item Value Reference Range Interpretation Comments GLUBED (test code = GLUBED) 214 mg/dL 74-106 H Performed by certified roller operator at [facility] [id number] 12:00:00* Test Item Value Reference Range Interpretation Comments GLUBED (test code = GLUBED) 266 mg/dL 74-106 H Performed by certified roller operator at [facility] [id number] 07:31:00* Test Item Value Reference Range Interpretation Comments GLUBED (test code = GLUBED) 252 mg/dL 74-106 H Performed by certified roller operator at [facility] [id number] 21:20:00* Test Item Value Reference Range Interpretation Comments GLUBED (test code = GLUBED) 109 mg/dL 74-106 H Performed by certified roller operator at [facility] [id number] 16:47:00* Test Item Value Reference Range Interpretation Comments GLUBED (test code = GLUBED) 328 mg/dL 74-106 H Performed by certified roller operator at [facility] [id number] 11:32:00* Test Item Value Reference Range Interpretation Comments GLUBED (test code = GLUBED) 145 mg/dL 74-106 H Performed by certified roller operator at [facility] [id number] 07:54:00* Test Item Value Reference Range Interpretation Comments GLUBED (test code = GLUBED) 347 mg/dL 74-106 H Performed by certified roller operator at [facility] CBC W/AUTO [id number] 07:28:00* Test Item Value Reference Range Interpretation [...] (test code = MDIFF) NO BASIC METABOLIC [id number] 07:10:00* Test Item Value Reference Range Interpretation [...] CA) 8.8 mg/dL 8.5-10.1 N BASIC METABOLIC [id number] 06:59:00* Test Item Value Reference Range Interpretation [...] CALCIUM (test code = CA) mg/dL 8.5-10.1 [id number] 22:44:00* Test Item Value Reference Range Interpretation Comments GLUBED (test code = GLUBED) 364 mg/dL 74-106 H Performed by certified roller operator at [facility] BASIC METABOLIC [id number] 17:43:00* Test Item Value Reference Range Interpretation [...] CA) 9.9 mg/dL 8.5-10.1 N HEPATIC FUNCTION [id number] 17:43:00* Test Item Value Reference Range Interpretation [...] reference range due to change in reagent. [id number] 17:43:00* Test Item Value Reference Range Interpretation Comments LIPASE (test code = LIP) 18 U/L 73.0-393.0 L BASIC METABOLIC [id number] 17:22:00* Test Item Value Reference Range Interpretation [...] code = CA) mg/dL 8.5-10.1 HEPATIC FUNCTION [id number] 17:22:00* Test Item Value Reference Range Interpretation [...] TOTAL (test code = ALKP) IUnit/L 45-117 [id number] 17:22:00* Test Item Value Reference Range Interpretation Comments LIPASE (test code = LIP) U/L 73.0-393.0 URINALYSIS [id number] 17:00:00* Test Item Value Reference Range Interpretation [...] FEW #/LPF FEW Urine Source? Clean CatchURINALYSIS [id number] 16:55:00* Test Item Value Reference Range Interpretation [...] HPF NONE Urine Source? Clean CatchCBC W/O [id number] 16:40:00* Test Item Value Reference Range Interpretation [...] MPV) 10.7 fL 6.7-11.0 N CBC W/O [id number] 16:37:00* Test Item Value Reference Range Interpretation [...] code = MPV) fL 6.7-11.0 US ABDOMEN [id number] 10:20:00 [place] [address] Patient Name: BREE ASHTON MR #: [id number] : 1975 Age/Sex: 42/M Req #: [id number] Adm Physician: Ordered by: TAVIA GARCIA MD Report #: [id number] Location: [place] Room/Bed: Procedure: [id number] U S/US ABDOMEN COMPLETE Exam Date: Exam [...] 102 3 COPY TO: TAVIA GARCIA MD [id number] 05:55:00* Test Item Value Reference Range Interpretation Comments GLUBED (test code = GLUBED) 195 mg/dL 74-106 H Performed by certified roller operator at [facility] [id number] 17:33:00* Test Item Value Reference Range Interpretation Comments GLUBED (test code = GLUBED) 151 mg/dL 74-106 H Performed by certified roller operator at [facility] BASIC METABOLIC [id number] 15:46:00* Test Item Value Reference Range Interpretation [...] code = CA) 7.7 mg/dL 8.5-10.1 L [id number] 12:16:00* Test Item Value Reference Range Interpretation Comments GLUBED (test code = GLUBED) 136 mg/dL 74-106 H Performed by certified roller operator at [facility] [id number] 07:53:00* Test Item Value Reference Range Interpretation Comments GLUBED (test code = GLUBED) 129 mg/dL 74-106 H Performed by certified roller operator at [facility] COMPREHENSIVE METABOLIC [id number] 06:41:00* Test Item Value Reference Range Interpretation Comments SODIUM (test code = NA) 139 mmol/L 136-145 N POTASSIUM (test code = K) 2.7 mmol/L 3.5-5.1 Re sults called to [id number] by V.[email or web address] 05/16/18 0636Critical results verified and [...] due to change in reagent. CBC W/AUTO [id number] 05:31:00* Test Item Value Reference Range Interpretation [...] code = NRBC#) 0.00 K/mm3 0.0-0.1 N [id number] 20:43:00* Test Item Value Reference Range Interpretation Comments GLUBED (test code = GLUBED) 122 mg/dL 74-106 H Performed by certified roller operator at [facility] [id number] 17:15:00* Test Item Value Reference Range Interpretation Comments GLUBED (test code = GLUBED) 145 mg/dL 74-106 H Performed by certified roller operator at [facility] [id number] 11:46:00* Test Item Value Reference Range Interpretation Comments GLUBED (test code = GLUBED) 228 mg/dL 74-106 H Performed by certified roller operator at [facility] [id number] 07:49:00* Test Item Value Reference Range Interpretation Comments GLUBED (test code = GLUBED) 123 mg/dL 74-106 H Performed by certified roller operator at [facility] COMPREHENSIVE METABOLIC [id number] 07:19:00* Test Item Value Reference Range Interpretation Comments SODIUM (test code = NA) 140 mmol/L 136-145 N POTASSIUM (test code = K) 2.9 mmol/L 3.5-5.1 L Re sults called to [id number] by V.[email or web address] 05/15/18 0716Critical results verified and [...] due to change in reagent. CBC W/AUTO [id number] 06:20:00* Test Item Value Reference Range Interpretation [...] code = NRBC#) 0.00 K/mm3 0.0-0.1 N [id number] 21:14:00* Test Item Value Reference Range Interpretation Comments GLUBED (test code = GLUBED) 152 mg/dL 74-106 H Performed by certified roller operator at [facility] [id number] 17:16:00* Test Item Value Reference Range Interpretation Comments GLUBED (test code = GLUBED) 140 mg/dL 74-106 H Performed by certified roller operator at [facility] [id number] 11:55:00* Test Item Value Reference Range Interpretation Comments GLUBED (test code = GLUBED) 236 mg/dL 74-106 H Performed by certified roller operator at [facility] COMPREHENSIVE METABOLIC [id number] 08:50:00* Test Item Value Reference Range Interpretation [...] due to change in reagent. COMPREHENSIVE METABOLIC [id number] 08:38:00* Test Item Value Reference Range Interpretation [...] code = ALKP) IUnit/L 45-117 CBC W/AUTO [id number] 08:00:00* Test Item Value Reference Range Interpretation [...] DIFF REQUIRED (test code = MDIFF) NO [id number] 07:51:00* Test Item Value Reference Range Interpretation Comments GLUBED (test code = GLUBED) 210 mg/dL 74-106 H Performed by certified roller operator at [facility] [id number] 20:06:00* Test Item Value Reference Range Interpretation Comments GLUBED (test code = GLUBED) 278 mg/dL 74-106 H Performed by certified roller operator at [facility] [id number] 16:53:00* Test Item Value Reference Range Interpretation Comments GLUBED (test code = GLUBED) 236 mg/dL 74-106 H Performed by certified roller operator at [facility] [id number] 11:31:00* Test Item Value Reference Range Interpretation Comments GLUBED (test code = GLUBED) 269 mg/dL 74-106 H Performed by certified roller operator at [facility] [id number] 10:39:00* Test Item Value Reference Range Interpretation Comments GLUBED (test code = GLUBED) 298 mg/dL 74-106 H Performed by certified roller operator at [facility] COMPREHENSIVE METABOLIC [id number] 06:29:00* Test Item Value Reference Range Interpretation [...] due to change in reagent. COMPREHENSIVE METABOLIC [id number] 06:10:00* Test Item Value Reference Range Interpretation [...] code = ALKP) IUnit/L 45-117 CBC W/AUTO [id number] 05:48:00* Test Item Value Reference Range Interpretation [...] DIFF REQUIRED (test code = MDIFF) NO [id number] 20:52:00* Test Item Value Reference Range Interpretation Comments GLUBED (test code = GLUBED) 238 mg/dL 74-106 H Performed by certified roller operator at [facility] [id number] 15:54:00* Test Item Value Reference Range Interpretation Comments GLUBED (test code = GLUBED) 199 mg/dL 74-106 H Performed by certified roller operator at [facility] [id number] 11:51:00* Test Item Value Reference Range Interpretation Comments GLUBED (test code = GLUBED) 265 mg/dL 74-106 H Performed by certified roller operator at [facility] [id number] 08:20:00* Test Item Value Reference Range Interpretation Comments GLYCOSYLATED HEMOGLOBIN (HA1C) (test code = GLYHGB) 10.6 % HbA1 4. 8-6.0 H ESTIMATED AVERAGE GLUCOSE (test code = EAG) 258 MG/DL COMPREHENSIVE METABOLIC [id number] 08:11:00* Test Item Value Reference Range Interpretation [...] result is a direct measurement.========= THYROID STIMULATING [id number] 08:11:00* Test Item Value Reference Range Interpretation Comments THYROID STIMULATING HORMONE (test code = TSH) 1.020 uIU/mL 0.36-3.7 4 N TSH REFERENCE RANGES: EUTHYROID: 0.35 - 4.3 mIU/mL HYPO : > 5.5 mIU/mL HYPER : < 0.35 mIU/mL COMPREHENSIVE METABOLIC [id number] 07:53:00* Test Item Value Reference Range Interpretation [...] code = LDL) mg/dL 100-129 THYROID STIMULATING [id number] 07:53:00* Test Item Value Reference Range Interpretation Comments THYROID STIMULATING HORMONE (test code = TSH) uIU/mL 0.36-3.7 4 CBC W/AUTO [id number] 07:51:00* Test Item Value Reference Range Interpretation [...] DIFF REQUIRED (test code = MDIFF) NO [id number] 07:10:00* Test Item Value Reference Range Interpretation Comments GLUBED (test code = GLUBED) 350 mg/dL 74-106 H Performed by certified roller operator at [facility] DRUGS OF ABUSE SCREEN [id number] 06:10:00* Test Item Value Reference Range Interpretation [...] code = MET[place]URN) NEGATIVE <300 ng/mL URINALYSIS [id number] 05:29:00* Test Item Value Reference Range Interpretation [...] 1.001-1.035 UA BLOOD DIPSTICK (test code = JAONNE) Negative NEGATIVE UA PH DIPSTICK (test code [...] Urine Source? Clean CatchDRUGS OF ABUSE SCREEN [id number] 05:12:00* Test Item Value Reference Range Interpretation [...] METHADONE (test code = METHAURN) <300 ng/mL [id number] 20:26:00* Test Item Value Reference Range Interpretation Comments GLUBED (test code = GLUBED) 285 mg/dL 74-106 H Performed by certified roller operator at [facility] [id number] 13:32:00* Test Item Value Reference Range Interpretation Comments GLUBED (test code = GLUBED) 159 mg/dL 74-106 H Performed by certified roller operator at [facility] BASIC METABOLIC [id number] 09:38:00* Test Item Value Reference Range Interpretation [...] CA) 8.9 mg/dL 8.5-10.1 N HEPATIC FUNCTION [id number] 09:38:00* Test Item Value Reference Range Interpretation [...] reference range due to change in reagent. [id number] 09:38:00* Test Item Value Reference Range Interpretation Comments LIPASE (test code = LIP) 20 U/L 73.0-393.0 L BASIC METABOLIC [id number] 09:30:00* Test Item Value Reference Range Interpretation [...] code = CA) mg/dL 8.5-10.1 HEPATIC FUNCTION [id number] 09:30:00* Test Item Value Reference Range Interpretation [...] TOTAL (test code = ALKP) IUnit/L 45-117 [id number] 09:30:00* Test Item Value Reference Range Interpretation Comments LIPASE (test code = LIP) U/L 73.0-393.0 CBC W/O [id number] 09:13:00* Test Item Value Reference Range Interpretation [...] code = MPV) 10.6 fL 6.7-11.0 N [id number] 07:28:00* Test Item Value Reference Range Interpretation Comments GLUBED (test code = GLUBED) 173 mg/dL 74-106 H Performed by certified roller operator at [facility] [id number] 20:56:00* Test Item Value Reference Range Interpretation Comments GLUBED (test code = GLUBED) 181 mg/dL 74-106 H Performed by certified roller operator at [facility] [id number] 16:11:00* Test Item Value Reference Range Interpretation Comments GLUBED (test code = GLUBED) 245 mg/dL 74-106 H Performed by certified roller operator at [facility] [id number] 11:55:00* Test Item Value Reference Range Interpretation Comments GLUBED (test code = GLUBED) 309 mg/dL 74-106 H Performed by certified roller operator at [facility] [id number] 08:03:00* Test Item Value Reference Range Interpretation Comments GLUBED (test code = GLUBED) 241 mg/dL 74-106 H Performed by certified roller operator at [facility] [id number] 00:08:00* Test Item Value Reference Range Interpretation Comments GLUBED (test code = GLUBED) 175 mg/dL 74-106 H Performed by certified roller operator at [facility] [id number] 20:00:00* Test Item Value Reference Range Interpretation Comments GLUBED (test code = GLUBED) 167 mg/dL 74-106 H Performed by certified roller operator at [facility] [id number] 16:45:00* Test Item Value Reference Range Interpretation Comments GLUBED (test code = GLUBED) 208 mg/dL 74-106 H Performed by certified roller operator at [facility] [id number] 16:01:00* Test Item Value Reference Range Interpretation Comments GLUBED (test code = GLUBED) 47 mg/dL 74-106 LL [facility] [id number] 11:44:00* Test Item Value Reference Range Interpretation Comments GLUBED (test code = GLUBED) 317 mg/dL 74-106 H Performed by certified roller operator at [facility] [id number] 08:20:00* Test Item Value Reference Range Interpretation Comments GLUBED (test code = GLUBED) 271 mg/dL 74-106 H Performed by certified roller operator at [facility] CBC W/AUTO [id number] 05:45:00* Test Item Value Reference Range Interpretation [...] = MDIFF) NO, ONLY SCAN NEEDED DIFFERENTIAL [id number] 05:45:00* Test Item Value Reference Range Interpretation Comments STAIN ACCEPTABILITY (test code = STN ACCEPTABLE) STAIN ACCEPTABLE POLYCHROMASIA (test code = POLC) 1+ HYPOCHROMIA (test code = HYPO) 1+ PLATELET ESTIMATE (test code = PLTEST) ADEQUATE PLATELET MORPHOLOGY (test code = PLTMORPH) NORMAL CBC W/AUTO [id number] 05:08:00* Test Item Value Reference Range Interpretation [...] = MDIFF) NO, ONLY SCAN NEEDED DIFFERENTIAL [id number] 05:08:00* Test Item Value Reference Range Interpretation Comments STAIN ACCEPTABILITY (test code = STN ACCEPTABLE) CABOT RINGS (test code = CAB) MORPHOLOGY COMMENT (test code = MOC) PLATELET ESTIMATE (test code = PLTEST) PLATELET MORPHOLOGY (test code = PLTMORPH) CBC W/AUTO [id number] 05:08:00* Test Item Value Reference Range Interpretation [...] = MDIFF) NO, ONLY SCAN NEEDED DIFFERENTIAL [id number] 05:08:00* Test Item Value Reference Range Interpretation Comments STAIN ACCEPTABILITY (test code = STN ACCEPTABLE) MORPHOLOGY COMMENT (test code = MOC) PLATELET ESTIMATE (test code = PLTEST) PLATELET MORPHOLOGY (test code = PLTMORPH) CBC W/AUTO [id number] 05:08:00* Test Item Value Reference Range Interpretation [...] = MDIFF) NO, ONLY SCAN NEEDED DIFFERENTIAL [id number] 05:08:00* Test Item Value Reference Range Interpretation Comments STAIN ACCEPTABILITY (test code = STN ACCEPTABLE) MORPHOLOGY COMMENT (test code = MOC) PLATELET ESTIMATE (test code = PLTEST) PLATELET MORPHOLOGY (test code = PLTMORPH) CBC W/AUTO [id number] 05:08:00* Test Item Value Reference Range Interpretation [...] = MDIFF) NO, ONLY SCAN NEEDED DIFFERENTIAL [id number] 05:08:00* Test Item Value Reference Range Interpretation Comments STAIN ACCEPTABILITY (test code = STN ACCEPTABLE) CABOT RINGS (test code = CAB) MORPHOLOGY COMMENT (test code = MOC) PLATELET ESTIMATE (test code = PLTEST) PLATELET MORPHOLOGY (test code = PLTMORPH) COMPREHENSIVE METABOLIC [id number] 05:04:00* Test Item Value Reference Range Interpretation [...] due to change in reagent. COMPREHENSIVE METABOLIC [id number] 04:54:00* Test Item Value Reference Range Interpretation [...] TOTAL (test code = ALKP) IUnit/L 45-117 [id number] 21:00:00* Test Item Value Reference Range Interpretation Comments GLUBED (test code = GLUBED) 334 mg/dL 74-106 H Performed by certified roller operator at [facility] [id number] 16:10:00* Test Item Value Reference Range Interpretation Comments GLUBED (test code = GLUBED) 102 mg/dL 74-106 N Performed by certified roller operator at [facility] [id number] 15:59:00* Test Item Value Reference Range Interpretation Comments GLUBED (test code = GLUBED) 339 mg/dL 74-106 H Performed by certified roller operator at [facility] URINALYSIS [id number] 09:47:00* Test Item Value Reference Range Interpretation [...] 0-2 #/HPF 0-5 Urine Source? Clean CatchURINALYSIS [id number] 09:46:00* Test Item Value Reference Range Interpretation [...] HPF 0-5 Urine Source? Clean CatchBASIC METABOLIC [id number] 04:02:00* Test Item Value Reference Range Interpretation [...] CA) 9.3 mg/dL 8.5-10.1 N HEPATIC FUNCTION [id number] 04:02:00* Test Item Value Reference Range Interpretation [...] reference range due to change in reagent. [id number] 04:02:00* Test Item Value Reference Range Interpretation Comments LIPASE (test code = LIP) 22 U/L 73.0-393.0 L BASIC METABOLIC [id number] 03:53:00* Test Item Value Reference Range Interpretation [...] code = CA) mg/dL 8.5-10.1 HEPATIC FUNCTION [id number] 03:53:00* Test Item Value Reference Range Interpretation [...] TOTAL (test code = ALKP) IUnit/L 45-117 [id number] 03:53:00* Test Item Value Reference Range Interpretation Comments LIPASE (test code = LIP) U/L 73.0-393.0 CBC W/O [id number] 03:46:00* Test Item Value Reference Range Interpretation [...] code = MPV) 10.9 fL 6.7-11.0 N [id number] 17:23:00 RUN DATE: 12/16/17 [facility] [employer] PAGE 1 RUN TIME: 1723 Specimen Inqui ry RUN USER: INTERFACE PATIENT: BREE ASHTON ACCT #: [id number] LOC: [facility] #: [id number] AGE/SX: 42/M ROOM: 2046 RE12/11/17REG DR: Olegario Diaz MD : 75 BED: A DIS: 12/13/17 STATUS: DIS IN TLOC: SPEC #: [id number] RECD: 12/14/17 STATUS: SHAHRAM BASSEM #: [id number] HUY: 12/11/17- SUBM DR: Kvng Izaguirre MD ENTERED: 12/14/17-1150 SP TYPE: STOMACH OTHR DR: Levi Natarajan i, MD ORDERED: GROSS COPIES TO: Kvng Izaguirre MD [address] [place] [address] Levi Lakhani MD [address] [place] [address] PROCEDURES: GROSS (12/15/17-3364 ) TISSUES: 1. GASTRIC ULCER - BX [...] AND DYSPLASIA NEGATIVE FOR MALIGNANCY MYA/ D (2) 95902, 18735 CONTINUED ON NEXT PAGE RUN DATE: 12/16/17 [facility] PAGE 2 RUN TIME: 1723 Specimen Inquiry RUN USER: INTER FACE SPEC #: [id number] PATIENT: BREE ASHTON #[id number] (Con tinued) MACROSCOPIC The first specimen is [...] GROSS PERFORMED AT [facility] [address] [place] [address], [place] [address] (p)[phone] MICROSCOPIC MICROSCOPIC PERFORMED AT [facility] All of the stains, including any controls performed, hao aguirre [facility] [address] [facility], [place] [address] [phone])[phone] PERFORMING SITE Diagnosis performed at: [facility], [place] [address] [facility], [place] [id number] Signed SIGNATURE ON FILE Leigh Ann Fuller 12/16/17 1723 END OF REPORT
[2019-08-24] MEDS: MORPHINE SULFATE INJ 4 MG/ML INJ 1ML IV ONE ×2 (09:26→11:00)
[2019-08-24] MEDS ORDERED: FAMOTIDINE 20 MG/2 ML VIAL IV ONE (09:33)
--- NOTE | 2019-08-24 10:16 | NUR ---
[facility] BEDSIDE AT THIS TIME TO TRANSPORT PATIENT TO ROOM 212. ALL PAPERWORK SENT WITH EMS AT THIS TIME.
[2019-08-24 10:30] VITALS: BP 162/91
--- NOTE | 2019-08-24 10:30 | NUR ---
Received patient from free standing ER. Awake, alert, respiration even and unlabored without SOB. Call light in reach. C/o pf nausea and abd pain. Notified Dr. Balderas. Verbal order given.
[2019-08-24 11:55] VITALS: BP 162/91
[2019-08-24] MEDS: SODIUM CHLORIDE 0.9% 1000ML 1,000 ML IV SCH ×2 (11:56→14:58)
[2019-08-24] MEDS ORDERED: MORPHINE SULFATE INJ 4 MG/ML INJ 1ML IV ONE (11:58)
[2019-08-24] MEDS ORDERED: DEXTROSE 50% SYRINGE 50 ML IV PRN (13:00)
[2019-08-24] MEDS ORDERED: METOCLOPRAMIDE HCL 10 MG TAB PO SCH (16:30)
[2019-08-24 16:39] VITALS: BP 139/91
[2019-08-24] MEDS: FAMOTIDINE 20 MG/2 ML VIAL IV SCH (17:00)
[2019-08-24] MEDS: INSULIN REGULAR, HUMAN 100 UNIT/1 ML 3ML VIAL SQ SCH ×2 (17:02→21:00)
--- NOTE | 2019-08-24 19:53 | NUR ---
Bedside report given to night nurse. Patient awake, alert, respiration even and unlabored without SOB. Call light in reach.
[2019-08-24 20:00] VITALS: BP 160/88
[2019-08-24] MEDS ORDERED: PANTOPRAZOLE 40 MG 10ML VIAL IV ONE (20:59)
[2019-08-24 21:00] VITALS: BP 160/88
[2019-08-24] MEDS ORDERED: NON-FORMULARY MEDICATION (Insulin Glargine (Lantus 3ML Pen) 15 UNITS) SQ SCH (21:00)
[2019-08-24] MEDS: INSULIN GLARGINE 100 UNITS/ML VIAL SQ SCH (21:00)
[2019-08-24] MEDS: PANTOPRAZOLE 40 MG 10ML VIAL IV SCH (21:00)
[2019-08-24] MEDS: ACETAMINOPHEN/CODEINE 300MG - 30MG TAB PO PRN (21:35)
[2019-08-24] MEDS ORDERED: CLONIDINE HCL 0.1 MG TAB PO PRN (22:00)
--- NOTE | 2019-08-24 22:05 | NUR ---
Pharmacy called to ask about two protonix orders put in by Dr. deb kovacs 08/24/2019. Advised that the MD has not called and stated that he wanted a Protonix drip(as inquired) and until he changes the order from IVP to Premix container drip if he choses so, to please continue to verify orders as entered by Dr. Torres. Pharmacy note on order is currently being addressed as this was not the given answer to the queries posed by pharmacist remediation project engineer verifying the medications. Called pharmacy and re-clarified comment inquiry response . Advised to please verify med as ordered so the patient can get the med as ordered
--- NOTE | 2019-08-24 23:17 | History and Physical ---
PRIMARY CARE PHYSICIAN: Dr. Rosa at [facility] CHIEF COMPLAINT: Abdominal pain, nausea, and vomiting. HISTORY OF PRESENT ILLNESS: This is a 43-year-old male with past medical history of diabetes and gastroparesis, presented to the ER with complaints of abdominal pain, nausea, and vomiting. He reports that the pain started early yesterday morning. He presented to the ER for evaluation, but he was sent home after he was given medications. He returned in the evening as the pain, nausea and vomiting continued to worsen. He denies any chest pain, shortness of breath, cough, fever, chills. He has multiple admissions in the past for similar problems due to gastroparesis, Dr. Torres is his GI doctor. Dr. Torres has done EGD in the past. PAST MEDICAL HISTORY: 1. Diabetes. 2. Gastroparesis. PAST SURGICAL HISTORY: Reports cholecystectomy and foot surgery. FAMILY MEDICAL HISTORY: He reports mother has diabetes. SOCIAL HISTORY: He denies any tobacco or alcohol use, but reports using marijuana daily. ALLERGIES: HE HAS NO KNOWN DRUG ALLERGIES. REVIEW OF SYSTEMS: GENERAL: Fatigue. LUNGS: No shortness of breath or cough. CARDIOVASCULAR: No chest pain or palpitations. GI: Reports nausea and vomiting associated with abdominal pain. NEURO: No dizziness. SKIN: No rash. PHYSICAL EXAMINATION: VITAL SIGNS: Temperature 99.6, pulse is 93, respirations 20, blood pressure 139/91, pulse ox 96% on room air. GENERAL: No acute distress. HEENT: Normocephalic, atraumatic. NECK: Supple. LUNGS: Clear to auscultation. CARDIOVASCULAR: Regular rate and rhythm. GI: Soft and tender to touch. NEUROLOGIC: Alert, awake, and oriented x3. MUSCULOSKELETAL: Moves all extremities. SKIN: Dry. PSYCHIATRIC: He is calm. LABORATORY DATA: Blood glucose is upon arrival 228. We will order CBC and BMP. IMPRESSION AND PLAN: 1. Abdominal pain with nausea and vomiting due to gastroparesis. He is started on Protonix and Reglan. IV fluid hydration since he is unable to keep down food. Pain management with Tylenol No.3 as needed. 2. Diabetes type 2. Sliding scale insulin as needed. 3. Hypertension. Continue lisinopril daily 5 mg. 4. Marijuana use. Discussed cessation. 5. Deep vein thrombosis prophylaxis. SCDs. PLAN: Continue IV fluid hydration and supportive therapy. Dr. Torres with his GI doctor has been consulted for further evaluation. Dictated by JON Smith Aviva Balderas MD MY/MODL /[id number] Pt seen and examined on 08/24/19. Agree with the findings and plan as documented by JON Ang. SOURAV
[2019-08-25] VITALS: BP 202/103
[2019-08-25] MEDS: SODIUM CHLORIDE 0.9% 1000ML 1,000 ML IV SCH ×2 (00:15→08:15)
[2019-08-25 01:08] VITALS: BP 178/105
[2019-08-25 04:00] VITALS: BP 164/101
[2019-08-25] MEDS: ACETAMINOPHEN/CODEINE 300MG - 30MG TAB PO PRN (04:17)
[2019-08-25] MEDS ORDERED: HYDRALAZINE HCL 20 MG/ML VIAL IV PRN (04:30)
--- NOTE | 2019-08-25 05:33 | NUR ---
Shift Summary: Medicated x 2 with Tylenol #3 for pain and with Zofran x 1 for Nausea Emesis x 2 clear, light green, straw like thin contents Beddings changed x 1 IV Site dressing changed called x 1 this shift for multiple noted hypertensive episodes .Orders received for PRN Antihypertensives Hydralazine x 1 for SBP>170mmhg this shift however did have several readings of an elevated MAP between 100-113 x 2 readings.
[2019-08-25] MEDS: METOCLOPRAMIDE HCL 10 MG/2ML VIAL IV SCH ×3 (06:26→12:00)
--- NOTE | 2019-08-25 07:00 | NUR ---
received bedside report. pt is sleeping, no s/s of distress. call light within reach and bed safety in place.
[2019-08-25] MEDS ORDERED: PANTOPRAZOLE SOD 40 MG TABEC PO SCH (07:30)
[2019-08-25] MEDS ORDERED: LISINOPRIL 2.5 MG TAB PO SCH (09:00)
[2019-08-25] MEDS: INSULIN GLARGINE 100 UNITS/ML VIAL SQ SCH (09:00)
[2019-08-25] MEDS: INSULIN REGULAR, HUMAN 100 UNIT/1 ML 3ML VIAL SQ SCH ×2 (09:00→11:30)
[2019-08-25] MEDS: FAMOTIDINE 20 MG/2 ML VIAL IV SCH (09:12)
[2019-08-25] MEDS: PANTOPRAZOLE 40 MG 10ML VIAL IV SCH (09:12)
[2019-08-25 09:26] VITALS: BP 195/105
[2019-08-25 11:10] VITALS: BP 195/105
--- NOTE | 2019-08-25 11:22 | NUR ---
transferred care to PAIGE MONGE. pt is alert resting in bed, no s/s of distress. call light within reach and instructed pt to call RN for help
[2019-08-25 13:02] VITALS: BP 176/79
[2019-08-25] MEDS ORDERED: LOSARTAN POTASS25 MG PO (13:46)
--- NOTE | 2019-08-25 14:27 | NUR ---
PT DISCHARGED HOME AT THIS TIME NO DISTRESS NOTED AT THIS TIME, NO C/O PAIN OR NAUSEA WHEN ASKED, IV SITE REMOVED AT THIS TIME, NO SWELLING NO REDNESS TO SITE , PT WAS EDUCATED ON NEW PRESCRIPTIONS.
--- NOTE | 2019-08-26 01:57 | Discharge Summary ---
PRIMARY CARE PHYSICIAN: Dr. Rosa at [facility]. FINAL DISCHARGE DIAGNOSES: 1. Intractable abdominal pain with nausea and vomiting due to gastroparesis. 2. Diabetes type 2. 3. Hypertension. 4. Marijuana use. CONSULTANTS: Dr. Torres with GI. PROCEDURES: None. HISTORY: Per HPI. HOSPITAL COURSE: This is a 43-year-old male with well known history of diabetes, gastroparesis, and hypertension, presented with complaints of severe abdominal pain with intractable nausea and vomiting. He was started on IV fluid hydration. Given Reglan and Zofran IV as needed for his nausea and vomiting. Protonix was also given for acid reflux. He was monitored overnight. This morning, he states he wants to go home and is feeling better. However, his blood pressure is severely elevated. He reports he does not have any blood pressure medication at home. He was given a prescription for losartan and advised to follow up with his PCP in 1 to 2 weeks to reevaluate. He would also need to follow up with GI for further management. PHYSICAL EXAMINATION: VITAL SIGNS: Temperature 97.6, pulse rate 96, respirations 20, blood pressure 145/79, pulse ox is 96% on room air. GENERAL: No acute distress. HEENT: Normocephalic, atraumatic. NECK: Supple. LUNGS: Clear. CARDIOVASCULAR: Regular rate and rhythm. GI: Soft. NEUROLOGIC: Alert, awake, and oriented x3. SKIN: Dry. CONDITION AT DISCHARGE: Improved. DISCHARGE MEDICATIONS: Please see medication reconciliation list. FOLLOWUP: Follow up with PCP and GI in 1 to 2 weeks for further management. TIME SPENT: Total discharge time is 33 minutes. Dictated by JON Smith Aviva Balderas MD MY/MODL /[id number] cc: Dr. Rosa [facility] Pt seen and examined on 08/25/19. Agree with findings and plan as documented by JON Ang. [facility]
== END 2019-08-25 14:00 | disposition home or self-care (01) ==
LOC: FSED 05:32 → ERHOLD 08:10 → MED/SURG2 10:33
PROVIDERS: ADMIT Internal Medicine; ATTEND Internal Medicine
DX: E11.43 Type 2 diabetes mellitus with diabetic autonomic (poly)neuropathy (principal); K31.84 Gastroparesis; Z79.4 Long term (current) use of insulin; I10 Essential (primary) hypertension; F12.90 Cannabis use, unspecified, uncomplicated; R11.2 Nausea with vomiting, unspecified
CPT/HCPCS: 36415 ×2; 80053; 82948 ×2; 85025; 87635; 99251; 99284; C9113 ×2; G0378 ×2; J0360; J1815; J1817; J2060; J2270; J2405 ×2; J2765 ×2; J7030; J8597

== ENCOUNTER 2019-09-20 20:47 | Emergency (ER) | payer MEDICARE ==
[~2019-09-20] VITALS: Ht 185.4 cm; Wt 87.5 kg
[~2019-09-20 20:47] MED LIST changes: +LOSARTAN POTASS25 MG PO
--- NOTE | 2019-09-20 21:07 | Emergency Department Note ---
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 Any updates have been documented here. Past Medical History Past Medical History: Diabetes Other Medical History: gastroparesis Past Surgical History: Cholecysctectomy Other Surgery: Left foot gangrene removal Social History Smoking Cessation: Unknown if ever smoked Any Illegal Drug Use: No TB Exposure/Symptoms: No Physically hurt or threatened: No Other Last Tetanus: UNKNOWN Any Pre-Existing Lines (PICC,: No Review of Systems Review of Systems Constitutional: Reports no symptoms EENTM: Reports no symptoms Cardiovascular: Reports no symptoms Respiratory: Reports no symptoms Gastrointestinal: Reports as per HPI, Reports abdominal pain, Reports nausea, Reports vomiting Genitourinary: Reports no symptoms Musculoskeletal: Reports no symptoms Integumentary: Reports no symptoms Neurological: Reports no symptoms Psychological: Reports no symptoms Endocrine: Reports no symptoms Hematological/Lymphatic: Reports no symptoms Physical Exam Related Data Allergies: Coded Allergies: No Known Allergies (Unverified , 07/02/18) Physical Exam CONSTITUTIONAL Constitutional: Present distressed HENT HENT: Present normocephalic, Present atraumatic, Present mucosae dry, Present nose normal HENT L/R: Present left ext ear normal, Present right ext ear normal EYES Eyes: Reports PERRL, Reports conjunctivae normal NECK Neck: Present ROM normal PULMONARY Pulmonary: Present effort normal, Present breath sounds normal CARDIOVASCULAR Cardiovascular: Present regular rhythm, Present heart sounds normal, Present capillary refill normal, Present normal rate GASTROINTESTINAL Abdominal: Present soft, Present bowel sounds normal, Present tender, Present other GENITOURINARY Genitourinary: Present exam deferred SKIN Skin: Present warm, Present dry MUSCULOSKELETAL Musculoskeletal: Present ROM normal, Present other (wound left foot) NEUROLOGICAL Neurological: Present alert, Present oriented x 3, Present no gross motor or sensory deficits PSYCHOLOGICAL Psychological: Present mood/affect normal, Present judgement normal Results Laboratory Lab results reviewed: Yes Assessment & Plan Medical Decision Making MDM gastroparesis flare Reassessment Reassessment time: 23:12 Reassessment doing better Assessment & Plan Final Impression: (1) Diabetic gastroparesis associated with type 2 diabetes mellitus (2) Dehydration (3) Hematemesis (4) Abdominal pain (5) Vomiting Depart Disposition: HOME, SELF-[facility] Meds Active Scripts Losartan Potassium (LOSARTAN POTASSIUM) 25 Mg Tablet, 50 MG PO DAILY for 60 Days Prov:LALITO LUND NP 08/25/19 Acetaminophen With Codeine (TYLENOL WITH CODEINE #3 TABLET) 1 Each Tablet, 300 MG PO Q6H PRN for pain, #20 TAB Prov:JAREK LO NP 07/10/19 Metoclopramide Hcl (REGLAN) 10 Mg Tablet, 1 TAB PO ACHS for 30 Days Before meals Prov:JAREK LO NP 11/25/18 Pantoprazole Sodium* (PROTONIX) 40 Mg Tablet.dr, 40 MG PO DAILY for 30 Days Prov:JAREK LO NP 11/25/18 Reported Medications Ondansetron Hcl (ONDANSETRON HCL) 4 Mg Tablet, 4 MG SL Q6H PRN for NAUSEA 07/02/18 Insulin Glargine (LANTUS 3ML PEN) 100 Units/1 Ml Inj, 15 UNITS SQ HS 07/02/18 Lisinopril (LISINOPRIL) 5 Mg Tablet, 5 MG PO DAILY 07/02/18 Insulin Aspart (NOVOLOG) 100 Units/1 Ml Inj, 8 UNITS SQ TIDWM 07/02/18 Medications in the ED morphine, PPI, Zofran, hydralazine Physician Attestation Provider Attestation pt is taking PO well, wants to go home and f/u. his problems are unfortunately chronic. TRENT FRANKLIN MD Sep 20, 2019 21:06
[2019-09-20] MEDS ORDERED: SODIUM CHLORIDE 0.9% 1000ML 1,000 ML IV STA (21:43)
[2019-09-20] MEDS ORDERED: PANTOPRAZOLE 40 MG 10ML VIAL IV STA (21:43)
[2019-09-20] MEDS ORDERED: HYDRALAZINE HCL 20 MG/ML VIAL IV STA (21:43)
[2019-09-20] MEDS ORDERED: NITROGLYCERIN 2% OINT 1 GM PKT TOP ONE (21:45)
[2019-09-20] MEDS ORDERED: DICYCLOMINE HCL 20 MG/2 ML VIAL IM ONE ×2 (21:45→22:23)
[2019-09-20] MEDS ORDERED: ONDANSETRON HCL INJ 2MG/ML 2ML 2 MG/ML VIAL IV ONE (21:45)
[2019-09-20] MEDS ORDERED: MORPHINE SULFATE INJ 4 MG/ML INJ 1ML IV STA (21:49)
[2019-09-20] MEDS ORDERED: ONDANSETRON HCL INJ 2MG/ML 2ML 2 MG/ML VIAL ONE (22:23)
[2019-09-20] MEDS ORDERED: HYDRALAZINE HCL 20 MG/ML VIAL ONE (22:23)
[2019-09-20] MEDS ORDERED: SODIUM CHLORIDE 0.9% 1000ML 1,000 ML ONE (22:24)
[2019-09-20] MEDS ORDERED: PANTOPRAZOLE 40 MG 10ML VIAL ONE (22:24)
[2019-09-20] MEDS ORDERED: MORPHINE SULFATE INJ 4 MG/ML INJ 1ML ONE (22:24)
[2019-09-20 23:35] VITALS: BP 172/86
[2019-09-21] MEDS ORDERED: PROMETHAZINE HC25 M1 PO (09:25)
== END 2019-09-20 23:35 | disposition home or self-care (01) ==
LOC: FSED 20:47
DX: E11.43 Type 2 diabetes mellitus with diabetic autonomic (poly)neuropathy (principal); K31.84 Gastroparesis; K92.0 Hematemesis; E86.0 Dehydration; R10.9 Unspecified abdominal pain
CPT/HCPCS: 99283; C9113; J0360; J0500; J2270; J2405; J7030; 96372; 96374; 96375; 96376

== ENCOUNTER 2019-09-21 07:02 | Emergency (ER) | payer MEDICARE ==
[~2019-09-21] VITALS: Ht 185.4 cm; Wt 87.5 kg
[2019-09-21] MEDS ORDERED: SODIUM CHLORIDE 0.9% 1000ML 1,000 ML IV STA (07:30)
[2019-09-21] MEDS ORDERED: ONDANSETRON HCL INJ 2MG/ML 2ML 2 MG/ML VIAL IV STA (07:30)
[2019-09-21] MEDS ORDERED: MORPHINE SULFATE INJ 4 MG/ML INJ 1ML IV ONE (07:30)
[2019-09-21] MEDS ORDERED: MORPHINE SULFATE 2 MG/ML SYR 1ML IV STA ×2 (07:47→09:30)
[2019-09-21] MEDS ORDERED: SODIUM CHLORIDE 0.9% 1000ML 1,000 ML ONE (07:52)
[2019-09-21] MEDS ORDERED: ONDANSETRON HCL INJ 2MG/ML 2ML 2 MG/ML VIAL ONE (07:52)
[2019-09-21] MEDS ORDERED: MORPHINE SULFATE INJ 4 MG/ML INJ 1ML ONE (08:32)
--- NOTE | 2019-09-21 09:23 | Emergency Department Note ---
History of Present Illnes History of Present Illness Chief Complaint: Abdominal Complaints History of Present Illness This is a 43 year old male with abdominal pain an vomiting for two days. He is known to have gastroparesis . Historian: Patient Onset (how long ago): day(s) (1) Location: epigastric Quality: sharp Radiation: Reports non-radiation Severity: moderate Onset quality: gradual Duration (how long): day(s) (1) Timing of current episode: constant Progression: unchanged Chronicity: new Context: Denies recent illness, Denies recent surgery, Denies recent immobilization, Denies recent travel, Denies trauma/injury, Denies new medications, Denies hx of DVT/PE, Denies non-compliance w/ medications, Denies other Relieving factors: none Exacerbating factors: none Associated symptoms: Reports denies other symptoms, Reports other Treatments prior to arrival: none Past Medical/Family History Physician Review I have reviewed the patient's past medical and family history. Any updates have been documented here. Past Medical History Past Medical History: Diabetes Other Medical History: GASTROPORESIS Past Surgical History: Cholecysctectomy Other Surgery: L-FOOT Other Last Tetanus: UNKNOWN Review of Systems Review of Systems Constitutional: Reports no symptoms EENTM: Reports no symptoms Cardiovascular: Reports no symptoms Respiratory: Reports no symptoms Gastrointestinal: Reports abdominal pain, Reports vomiting Genitourinary: Reports no symptoms Musculoskeletal: Reports no symptoms Integumentary: Reports no symptoms Neurological: Reports no symptoms Psychological: Reports no symptoms Endocrine: Reports no symptoms Hematological/Lymphatic: Reports no symptoms Physical Exam Related Data Allergies: Coded Allergies: No Known Allergies (Unverified , 07/02/18) Vital signs reviewed: Yes Physical Exam CONSTITUTIONAL Constitutional: Present well-developed, Present well-nourished HENT HENT: Present normocephalic, Present atraumatic, Present oropharynx clear/moist, Present nose normal HENT L/R: Present left ext ear normal, Present right ext ear normal EYES Eyes: Reports PERRL, Reports conjunctivae normal NECK Neck: Present ROM normal PULMONARY Pulmonary: Present effort normal, Present breath sounds normal CARDIOVASCULAR Cardiovascular: Present regular rhythm, Present heart sounds normal, Present capillary refill normal, Present normal rate GASTROINTESTINAL Abdominal: Present soft, Present bowel sounds normal, Present tender (epigastric) GENITOURINARY Genitourinary: Present exam deferred SKIN Skin: Present warm, Present dry MUSCULOSKELETAL Musculoskeletal: Present ROM normal NEUROLOGICAL Neurological: Present alert, Present oriented x 3, Present no gross motor or sensory deficits PSYCHOLOGICAL Psychological: Present mood/affect normal, Present judgement normal Results Laboratory Lab results reviewed: Yes Assessment & Plan Medical Decision Making MDM gastritis pus gastroparesis Reassessment Reassessment better Assessment & Plan Final Impression: (1) Abdominal pain (2) Nausea & vomiting (3) Diabetic gastroparesis associated with type 2 diabetes mellitus (4) Hyperglycemia Depart Disposition: HOME, SELF-[facility] Meds Active Scripts Losartan Potassium (LOSARTAN POTASSIUM) 25 Mg Tablet, 50 MG PO DAILY for 60 Days Prov:LALITO LUND NP 08/25/19 Acetaminophen With Codeine (TYLENOL WITH CODEINE #3 TABLET) 1 Each Tablet, 300 MG PO Q6H PRN for pain, #20 TAB Prov:JAREK LO NP 07/10/19 Metoclopramide Hcl (REGLAN) 10 Mg Tablet, 1 TAB PO ACHS for 30 Days Before meals Prov:JAREK LO NP 11/25/18 Pantoprazole Sodium* (PROTONIX) 40 Mg Tablet.dr, 40 MG PO DAILY for 30 Days Prov:JAREK LO NP 11/25/18 Reported Medications Ondansetron Hcl (ONDANSETRON HCL) 4 Mg Tablet, 4 MG SL Q6H PRN for NAUSEA 07/02/18 Insulin Glargine (LANTUS 3ML PEN) 100 Units/1 Ml Inj, 15 UNITS SQ HS 07/02/18 Lisinopril (LISINOPRIL) 5 Mg Tablet, 5 MG PO DAILY 07/02/18 Insulin Aspart (NOVOLOG) 100 Units/1 Ml Inj, 8 UNITS SQ TIDWM 07/02/18 Medications in the ED Ondansetron HCl 4 mg NOW STAT IV ; Start 09/21/19 at 07:30; Stop 09/21/19 at 07:46; Status DC Morphine Sulfate 2 mg ONCE ONCE IV ; Start 09/21/19 at 07:30; Stop 09/21/19 at 07:48; Status DC Sodium Chloride 1,000 ml @ 0 mls/hr Q0M STAT IV ; Start 09/21/19 at 07:30; Stop 09/21/19 at 07:33; Status DC Morphine Sulfate 2 mg NOW STAT IV ; Start 09/21/19 at 07:47; Stop 09/21/19 at 0 8:18; Status DC Ondansetron HCl 4 mg STK-MED ONCE .ROUTE ; Start 09/21/19 at 07:52; Stop 09/21/19 at 07:48; Status DC Sodium Chloride 1,000 ml @ ud STK-MED ONCE .ROUTE ; Start 09/21/19 at 07:52; Stop 09/21/19 at 07:48; Status DC Morphine Sulfate 4 mg STK-MED ONCE .ROUTE ; Start 09/21/19 at 08:32; Stop 09/21/19 at 08:29; Status DC FILIBERTO ROSENTHAL MD Sep 21, 2019 09:23
[2019-09-21] MEDS ORDERED: PROMETHAZINE HC25 M1 PO (09:25)
[2019-09-21 09:31] VITALS: BP 158/77
--- NOTE | 2019-09-21 10:02 | NUR ---
Pt still had approx 500cc NS in bag, informed patient that the ERMD wants him to receive full bag prior to leaving. Pt verbalized understanding.
--- NOTE | 2019-09-21 10:08 | NUR ---
PO abdulaziz completed. Pt able to tolerate 10oz of water without vomiting. Pt requesting more water at this time. Ok to have more water, pt able to tolerate 12 oz of water without vomiting. ERMD aware. Pt refused admission, states reports significant relief of pain n/v, states informed ERMD that since he is able to hold fluids he would prefer to be discharged home.
--- NOTE | 2019-09-21 10:45 | NUR ---
Pt called spouse to pick him up as IVF were completed. Pt informed spouse that he felt better and was ready to be picked up, pt informed spouse that he didnt want to be admitted d/t feeling better.
--- NOTE | 2019-09-21 10:51 | NUR ---
Pt stood up from [facility], stated he felt slightly nauseous, asked pt if he felt ok and if he needed to see the ER MD again, pt stated he was ok, asked if he would like a some more nausea medication prior to leaving, pt stated yes. Dr. Amin informed, verbal order with read back for Zofran 4mg ODT.
[2019-09-21] MEDS ORDERED: ONDANSETRON HCL 4 MG ORAL DISINTEGRATING TAB ONE (11:00)
[2019-09-21] MEDS ORDERED: ONDANSETRON HCL 4 MG ORAL DISINTEGRATING TAB PO ONE (11:00)
--- NOTE | 2019-09-21 11:02 | NUR ---
Pt stated feeling better, able to ambulate with steady gait, no nausea or vomiting at the time.
== END 2019-09-21 11:05 | disposition home or self-care (01) ==
LOC: FSED 07:02
DX: R10.13 Epigastric pain (principal); E11.43 Type 2 diabetes mellitus with diabetic autonomic (poly)neuropathy; E11.65 Type 2 diabetes mellitus with hyperglycemia; K31.84 Gastroparesis; R11.2 Nausea with vomiting, unspecified
CPT/HCPCS: 80053; 85025; 99283; J2270; J2405; J7030; Q0162

== ENCOUNTER 2019-09-22 07:00 | Inpatient (IN) | payer MEDICARE, OTHER ==
[~2019-09-22] VITALS: Ht 185.4 cm; Wt 88.5 kg
[2019-09-22] MEDS ORDERED: MORPHINE SULFATE 2 MG/ML SYR 1ML IV STA (07:16)
[2019-09-22] MEDS ORDERED: ONDANSETRON HCL INJ 2MG/ML 2ML 2 MG/ML VIAL IV STA (07:16)
[2019-09-22] MEDS ORDERED: SODIUM CHLORIDE 0.9% 1000ML 1,000 ML IV STA (07:16)
[2019-09-22] MEDS ORDERED: MORPHINE SULFATE INJ 4 MG/ML INJ 1ML ONE ×2 (07:36→10:06)
[2019-09-22] MEDS ORDERED: SODIUM CHLORIDE 0.9% 1000ML 0 ML ONE (07:37)
--- NOTE | 2019-09-22 08:12 | NUR ---
REPORT TO ON COMING NS
--- NOTE | 2019-09-22 09:10 | Emergency Department Note ---
History of Present Illnes History of Present Illness Chief Complaint: Abdominal Complaints History of Present Illness This is a 43 year old male c cc abdominal pain and vomiting, patientwas here yesterday, went home and came back today. Historian: Patient Arrival Mode: Car Onset (how long ago): day(s) (3) Location: abdomen Quality: sharp Severity: moderate Onset quality: gradual Duration (how long): day(s) (3) Timing of current episode: constant Progression: waxing and waning Chronicity: new Context: Denies recent illness, Denies recent surgery, Denies recent immobilization, Denies recent travel, Denies trauma/injury, Denies new medications, Denies hx of DVT/PE, Denies non-compliance w/ medications, Denies other Relieving factors: none Exacerbating factors: none Associated symptoms: Reports denies other symptoms Treatments prior to arrival: none Past Medical/Family History Physician Review I have reviewed the patient's past medical and family history. Any updates have been documented here. Past Medical History Recent Fever: No Clinical Suspicion of Infectio: No New/Unexplained Change in Ment: No Past Medical History: Diabetes Other Medical History: GASTROPARESIS Past Surgical History: Cholecysctectomy Other Surgery: L-FOOT SURG Social History Smoking Cessation: Never Smoker Alcohol Use: None Any Illegal Drug Use: No TB Exposure/Symptoms: No Physically hurt or threatened: No Other Last Tetanus: UNKNOWN Any Pre-Existing Lines (PICC,: No Is patient up to date on immun: No Last Flu: NONE Last Pneumovax: NA Review of Systems Review of Systems Constitutional: Reports no symptoms EENTM: Reports no symptoms Cardiovascular: Reports no symptoms Respiratory: Reports no symptoms Gastrointestinal: Reports abdominal pain, Reports nausea, Reports vomiting Genitourinary: Reports no symptoms Musculoskeletal: Reports no symptoms Integumentary: Reports no symptoms Neurological: Reports no symptoms Psychological: Reports no symptoms Endocrine: Reports no symptoms Hematological/Lymphatic: Reports no symptoms Physical Exam Related Data Allergies: Coded Allergies: No Known Allergies (Unverified , 07/02/18) Triage Vital Signs Vital Signs Date Time Temp Pulse Resp B/P (MAP) Pulse Ox O2 Delivery O2 Flow Rate FiO2 09/22/19 07:12 97.1 98 18 183/97 98 Vital signs reviewed: Yes Physical Exam CONSTITUTIONAL Constitutional: Present well-developed, Present well-nourished HENT HENT: Present normocephalic, Present atraumatic, Present oropharynx clear/moist, Present nose normal HENT L/R: Present left ext ear normal, Present right ext ear normal EYES Eyes: Reports PERRL, Reports conjunctivae normal NECK Neck: Present ROM normal PULMONARY Pulmonary: Present effort normal, Present breath sounds normal CARDIOVASCULAR Cardiovascular: Present regular rhythm, Present heart sounds normal, Present capillary refill normal, Present normal rate GASTROINTESTINAL Abdominal: Present soft, Present bowel sounds normal, Present tender GENITOURINARY Genitourinary: Present exam deferred SKIN Skin: Present warm, Present dry MUSCULOSKELETAL Musculoskeletal: Present ROM normal NEUROLOGICAL Neurological: Present alert, Present oriented x 3, Present no gross motor or sensory deficits PSYCHOLOGICAL Psychological: Present mood/affect normal, Present judgement normal Results Laboratory Lab results reviewed: Yes Assessment & Plan Medical Decision Making MDM gastritis, gastroparesis Reassessment Reassessment time: 09:08 Reassessment better Assessment & Plan Final Impression: (1) Abdominal pain, acute, epigastric (2) Dehydration (3) Nausea & vomiting (4) Diabetic gastroparesis associated with type 2 diabetes mellitus (5) Hyperglycemia Depart Disposition: ADMITTED Last Vital Signs Date Time Temp Pulse Resp B/P (MAP) Pulse Ox O2 Delivery O2 Flow Rate FiO2 09/22/19 07:12 97.1 98 18 183/97 98 Home Meds Active Scripts Promethazine Hcl (PROMETHAZINE HCL) 25 Mg Tablet, 25 MG PO Q6H for vomiting, #20 TAB Prov:FILIBERTO ROSENTHAL MD 09/21/19 Losartan Potassium (LOSARTAN POTASSIUM) 25 Mg Tablet, 50 MG PO DAILY for 60 Days Prov:LALITO LUND NP 08/25/19 Acetaminophen With Codeine (TYLENOL WITH CODEINE #3 TABLET) 1 Each Tablet, 300 MG PO Q6H PRN for pain, #20 TAB Prov:JAREK LO NP 07/10/19 Metoclopramide Hcl (REGLAN) 10 Mg Tablet, 1 TAB PO ACHS for 30 Days Before meals Prov:JAREK LO NP 11/25/18 Pantoprazole Sodium* (PROTONIX) 40 Mg Tablet.dr, 40 MG PO DAILY for 30 Days Prov:JAREK LO NP 11/25/18 Reported Medications Ondansetron Hcl (ONDANSETRON HCL) 4 Mg Tablet, 4 MG SL Q6H PRN for NAUSEA 07/02/18 Insulin Glargine (LANTUS 3ML PEN) 100 Units/1 Ml Inj, 15 UNITS SQ HS 07/02/18 Lisinopril (LISINOPRIL) 5 Mg Tablet, 5 MG PO DAILY 07/02/18 Insulin Aspart (NOVOLOG) 100 Units/1 Ml Inj, 8 UNITS SQ TIDWM 07/02/18 Medications in the ED Ondansetron HCl 4 mg NOW STAT IV Last administered on 09/22/19at 07:48; Admin Dose 4 MG; Start 09/22/19 at 07:16; Stop 09/22/19 at 07:41; Status DC Morphine Sulfate 2 mg NOW STAT IV Last administered on 09/22/19at 07:50; Admin Dose 2 MG; Start 09/22/19 at 07:16; Stop 09/22/19 at 07:41; Status DC Sodium Chloride 1,000 ml @ 0 mls/hr Q0M STAT IV Last administered on 09/22/19at 07:48; Admin Dose 1,000 MLS/HR; Start 09/22/19 at 07:16; Stop 09/22/19 at 07:22; Status DC Morphine Sulfate 4 mg STK-MED ONCE .ROUTE ; Start 09/22/19 at 07:36; Stop 09/22/19 at 07:32; Status DC Sodium Chloride 1,000 ml @ ud STK-MED ONCE .ROUTE ; Start 09/22/19 at 07:37; Stop 09/22/19 at 07:32; Status DC FILIBERTO ROSENTHAL MD Sep 22, 2019 09:10
[2019-09-22] MEDS ORDERED: INSULIN REGULAR, HUMAN 100 UNIT/1 ML 3ML VIAL IV ONE (09:15)
[2019-09-22] MEDS ORDERED: INSULIN REGULAR, HUMAN 100 UNIT/1 ML 3ML VIAL SQ ONE (09:15)
[2019-09-22] MEDS ORDERED: INSULIN REGULAR, HUMAN 100 UNIT/1 ML 3ML VIAL ONE (09:26)
[2019-09-22] MEDS ORDERED: ONDANSETRON HCL INJ 2MG/ML 2ML 2 MG/ML VIAL IV PRN (09:45)
[2019-09-22] MEDS ORDERED: SODIUM CHLORIDE 0.9% 1000ML 1,000 ML IV SCH (09:45)
--- NOTE | 2019-09-22 09:50 | NUR ---
Pt reports nausea and abdominal pain. Dr. Amin aware, order for phenergan 25mg IVPB to be placed by Dr. Amin, will administer pts PRN dose of morphine as well.
[2019-09-22] MEDS ORDERED: PROMETHAZINE HCL (IM) 25 MG/ML VIAL ONE (09:57)
[2019-09-22] MEDS ORDERED: SODIUM CHLORIDE 0.9% 1000ML 1,000 ML ONE ×2 (09:57→10:04)
[2019-09-22] MEDS ORDERED: SODIUM CHLORIDE 0.9% 50ML 50 ML ONE (09:58)
[2019-09-22] MEDS ORDERED: PROMETHAZINE 25MG/ NS 50ML (IV) IV ONE (10:00)
--- NOTE | 2019-09-22 10:12 | NUR ---
[facility] contacted at this time to transport patient to [facility] room 288 to be admitted. ETA 30-45 min. Patient updated on status.
[2019-09-22] MEDS: MORPHINE SULFATE 2 MG/ML SYR 1ML IV PRN ×4 (10:31→22:54)
--- NOTE | 2019-09-22 10:51 | NUR ---
Report given to PAIGE Gusman.
[2019-09-22 11:56] VITALS: BP 157/86
[2019-09-22] MEDS ORDERED: ACETAMINOPHEN 325 MG TAB PO PRN (13:15)
[2019-09-22] MEDS ORDERED: DEXTROSE 50% SYRINGE 50 ML IV PRN ×2 (13:15→23:30)
[2019-09-22] MEDS ORDERED: DOCUSATE SODIUM 100 MG CAP PO PRN (13:15)
[2019-09-22] MEDS ORDERED: MELATONIN 5 MG TABLET PO PRN (13:15)
--- NOTE | 2019-09-22 14:03 | Diagnostic Imaging Report ---
Exam: KUB - 2 views Indication: Abdominal Pain Comparison: CT abdomen and pelvis of 07/23/2019 Findings: Nonobstructive bowel gas pattern. No evidence of free intraperitoneal air. No evidence of abnormal calcification. No acute bony abnormality. Impression: No acute radiographic abnormality. Signed by: Tianna Asencio MD on 09/22/2019 2:00 PM
[2019-09-22] MEDS: ONDANSETRON HCL INJ 2MG/ML 2ML 2 MG/ML VIAL IV PRN ×2 (14:10→22:54)
[2019-09-22] MEDS: METOCLOPRAMIDE HCL 10 MG/2ML VIAL IV SCH ×2 (14:10→22:00)
[2019-09-22 16:00] VITALS: BP 176/100
[2019-09-22 16:09] LABS: BASOPHILS % 0.4 % (0.0-1.0); HEMATOCRIT 32.2 % (38.2-49.6); HEMOGLOBIN 10.2 g/dL (14.0-18.0); LYMPHOCYTES % 10.7 % (18.0-39.1); MEAN CORPUSCULAR HGB CONC 31.7 g/dL (31-35); MEAN CORPUSCULAR VOLUME 88.5 fL (81-99); MONOCYTES # (AUTO) 0.6 (0.2-0.8); MONOCYTES % 6.8 % (4.4-11.3); NEUTROPHILS # (AUTO) 7.7 (2.1-6.9); NEUTROPHILS % 81.8 % (38.7-80.0); PLATELET COUNT 188 x10e3/uL (140-360); RED BLOOD COUNT 3.64 x10e6/uL (4.3-5.7)
[2019-09-22 16:24] LABS: ANION GAP 12.7 mmol/L (8-16); BLOOD UREA NITROGEN 20 mg/dL (7-26); BUN/CREATININE RATIO 17 (6-25); CALCIUM 8.6 mg/dL (8.4-10.2); CARBON DIOXIDE 26 mmol/L (22-29); CHLORIDE 103 mmol/L (98-107); CREATININE, SERUM 1.16 mg/dL (0.72-1.25); EST GLOMERULAR FILTRATION RATE > 60 ML/MIN (60-); GLUCOSE 256 mg/dL (74-118); POTASSIUM 3.7 mmol/L (3.5-5.1); SODIUM 138 mmol/L (136-145)
[2019-09-22] MEDS: LISINOPRIL 10 MG TAB PO SCH (18:20)
[2019-09-22] MEDS: SODIUM CHLORIDE 0.9% 1000ML 1,000 ML IV SCH ×2 (18:39→22:04)
--- NOTE | 2019-09-22 19:00 | NUR ---
RECEIVED PATIENT IN BEDSIDE SHIFT REPORT. PATIENT SLEEPING AT THIS TIME, RESPIRATIONS EVEN AND NONLABORED. NO S&S OF DISTRESS NOTED. BED LOCKED IN LOWEST POSITION, SIDE RAILS UPX2, CALL LIGHT IN REACH.
[2019-09-22 20:00] VITALS: BP 157/86
[2019-09-22] MEDS: PANTOPRAZOLE 40 MG 10ML VIAL IV SCH (22:59)
[2019-09-22] MEDS ORDERED: HYDROCODONE/APAP 5MG-325MG TAB PO PRN (23:30)
[2019-09-23] VITALS (9 sets, daily range): BP systolic 157–190; BP diastolic 70–109
--- NOTE | 2019-09-23 00:01 | History and Physical ---
CHIEF COMPLAINT: Nausea ,vomiting, decreased oral intake, and dehydration. HISTORY OF PRESENT ILLNESS: A 43-year-old male has a known history of type 2 diabetes and gastroparesis, comes in with an exacerbation of his diabetic gastroparesis. The patient reports that this occurred several days ago when he ate some food that led to significant intractable nausea and vomiting. He went to the ER at the [facility] [place] and was discharged home yesterday. He now presented back to the [facility] ER with similar findings of nausea, vomiting, and decreased oral intake. The patient was seen and evaluated at bedside on the medical floor. He is currently doing well with no other issues at this time. He looks clinically dehydrated on exam, but he is very stable. REVIEW OF SYSTEMS: Pertinent positives abdominal pain, nausea, vomiting and dehydration. The rest of 14-point review of systems are reviewed with the patient and are negative. ALLERGIES: NO KNOWN DRUG ALLERGIES. MEDICATIONS: Insulin, lisinopril, Raglan, Protonix, and promethazine. PAST MEDICAL HISTORY: He has diabetes, diabetic gastroparesis. He has history of nausea, vomiting, and hypertension. PAST SURGICAL HISTORY: Reports none. FAMILY HISTORY: Hypertension and diabetes. SOCIAL HISTORY: No drugs, no alcohol, does not smoke. Good social support. PHYSICAL EXAMINATION: VITAL SIGNS: Temperature is 98.7, pulse 93, respiratory rate 22, blood pressure 157/86, pulse ox 98% on room air. GENERAL: Not in acute distress, alert and oriented x3. Cooperative on examination. HEENT: Head normocephalic, atraumatic. Eyes; pupils are equal, round and reactive to light bilaterally. Extraocular movements intact bilaterally. Throat; no evidence of erythema or exudates in the posterior pharynx. Has poor dentition. NECK: Supple. Good range of motion throughout. PULMONARY: Clear to auscultation bilaterally. No wheezing, rales, or rhonchi. No crackles appreciated. CARDIOVASCULAR: Positive S1, S2. No murmurs, rubs, or gallops. ABDOMEN: Soft, nondistended, nontender to palpation. Bowel sounds present. MUSCULOSKELETAL: Strength is 5/5 throughout. No evidence of any muscle deficits on examination. No weakness appreciated. SKIN: Intact. Warm to touch. Good cap refill. PSYCHIATRIC: Normal affect and mood. EXTREMITIES: No edema. Good range of motion throughout. LABORATORY DATA: Labs show white count 9.4, hemoglobin 10, hematocrit 32, platelets of 188,000. Chemistry sodium 138, potassium 3.7, chloride 103, bicarb 26, anion gap of 12, BUN is 20, creatinine is 1.1, glucose was 256, calcium was 8.6. Troponin was 0.150. [place] virus was pending. Microbiology, none. IMAGING STUDIES: Abdominal x-ray, no acute findings. IMPRESSION: 1. Nausea and vomiting secondary to gastroparesis exacerbation. 2. Type 2 diabetes, long-standing. 3. Dehydration. PLAN: At this time, KUB was found to be negative. Continue with long-acting insulin as well as sliding scale. Initiate diet. Put on Reglan schedule 10 mg IV q.6 hours. He is also going to be on Phenergan. The patient's primary GI doctor has been consulted as well. Restart antihypertensive medications. Put on Lovenox for DVT prophylaxis. Continue with IV fluids. We will monitor the patient very closely. Discussed plan of care with nursing staff. MD CHRISTO Nuno/MODL /[id number]
[2019-09-23] MEDS: METOCLOPRAMIDE HCL 10 MG/2ML VIAL IV SCH ×5 (00:54→23:54)
[2019-09-23 02:13] LABS: ANION GAP 13.7 mmol/L (8-16); BLOOD UREA NITROGEN 21 mg/dL (7-26); BUN/CREATININE RATIO 17 (6-25); CALCIUM 8.5 mg/dL (8.4-10.2); CARBON DIOXIDE 26 mmol/L (22-29); CHLORIDE 103 mmol/L (98-107); CREATININE, SERUM 1.24 mg/dL (0.72-1.25); EST GLOMERULAR FILTRATION RATE > 60 ML/MIN (60-); GLUCOSE 268 mg/dL (74-118); POTASSIUM 3.7 mmol/L (3.5-5.1); SODIUM 139 mmol/L (136-145)
[2019-09-23] MEDS: MORPHINE SULFATE 2 MG/ML SYR 1ML IV PRN ×5 (04:10→23:54)
[2019-09-23] MEDS: SODIUM CHLORIDE 0.9% 1000ML 1,000 ML IV SCH ×2 (05:22→12:37)
[2019-09-23 06:09] LABS: BASOPHILS % 0.5 % (0.0-1.0); EOSINOPHILS % 0.1 % (0.0-6.0); HEMATOCRIT 32.2 % (38.2-49.6); HEMOGLOBIN 10.3 g/dL (14.0-18.0); LYMPHOCYTES # (AUTO) 1.1 (1.0-3.2); LYMPHOCYTES % 13.1 % (18.0-39.1); MEAN CORPUSCULAR HEMOGLOBIN 28.9 pg (28-32); MEAN CORPUSCULAR VOLUME 90.2 fL (81-99); MONOCYTES # (AUTO) 0.7 (0.2-0.8); MONOCYTES % 7.7 % (4.4-11.3); NEUTROPHILS # (AUTO) 6.8 (2.1-6.9); NEUTROPHILS % 78.4 % (38.7-80.0); PLATELET COUNT 183 x10e3/uL (140-360); RED BLOOD COUNT 3.57 x10e6/uL (4.3-5.7); RED CELL DISTRIBUTION WIDTH 13.7 % (11.7-14.4)
[2019-09-23 06:29] LABS: ALANINE AMINOTRANSFERASE 14 IU/L (0-55); ALBUMIN 3.4 g/dL (3.5-5.0); ALBUMIN/GLOBULIN RATIO 1.2 (0.8-2.0); ALKALINE PHOSPHATASE 108 IU/L (40-150); ANION GAP 12.6 mmol/L (8-16); BLOOD UREA NITROGEN 22 mg/dL (7-26); BUN/CREATININE RATIO 19 (6-25); CALCIUM 8.3 mg/dL (8.4-10.2); CARBON DIOXIDE 28 mmol/L (22-29); CHLORIDE 101 mmol/L (98-107); CREATININE, SERUM 1.16 mg/dL (0.72-1.25); EST GLOMERULAR FILTRATION RATE > 60 ML/MIN (60-); GLUCOSE 266 mg/dL (74-118); POTASSIUM 3.6 mmol/L (3.5-5.1); SODIUM 138 mmol/L (136-145)
--- NOTE | 2019-09-23 07:00 | NUR ---
Received bedside report. pt is sleeping, no s/s of distress. call light within reach
[2019-09-23] MEDS: PANTOPRAZOLE 40 MG 10ML VIAL IV SCH ×2 (08:23→22:36)
[2019-09-23] MEDS: ONDANSETRON HCL INJ 2MG/ML 2ML 2 MG/ML VIAL IV PRN ×2 (08:23→17:23)
[2019-09-23] MEDS: LISINOPRIL 10 MG TAB PO SCH (08:23)
[2019-09-23] MEDS: PANTOPRAZOLE SOD 40 MG TABEC PO SCH ×2 (08:23→09:00)
[2019-09-23] MEDS ORDERED: LISINOPRIL 2.5 MG TAB PO SCH (09:00)
[2019-09-23] MEDS: INSULIN LISPRO 100 UNIT/1 ML 3ML VIAL SQ SCH ×3 (12:30→21:00)
--- NOTE | 2019-09-23 12:51 | NUR ---
WOUND CARE CONSULT FOR 43 YO MALE HX OF abdominal pain,DIABETIES,DEHYDRATION MOUNA 19 ON CONSERVATIVE PUP STATUS AND INTERVENTIONS AND VISCO MATTRESS LABS: WBC-8.62 HGB_10.3 GLUCOSE-266 SKIN ASSESSMENT COMPLETE PATIENT PRESENTS WITH LEFT DORSAL FOOT PARTIAL THICKNESS WOUND WITH GRAFT PLACEMENT FROM OUTPATIENT CLINIC HE VISITS DUE TO PATIENT MISSING VISIT OUTER LAYER OF DRESSING IS REPLACED ADAPTIC OVER GRAFT 4X4 TOP WRAP WITH KERLIX AND COBAN RECOMMENDATIONS: NURSING TO CONTINUE TO MAINTAIN CONSERVATIVE PUP STATUS AND INTERVENTIONS AND VISCO MATTRESS NURSING TO CONTINUE TO ASSIST PATIENT OUT OF BED FOR MEALS AND MUCH TOLERATED NURSING TO CONTINUE TO ASSIST PATIENT NEEDED WITH MEALS AND NUTRITIONAL SUPPLEMENTS TO ENSURE PROPER REQUIREMENTS FOR HEALING NURSING TO CONTINUE TO OFFLOAD FEET AND HEELS NEEDED WITH PILLOW SUSPENSION WHEN IN BED NURSING TO MAINTAIN COBAN DRESSING WITH ADAPTIC OVER GRAFT 4X4 AND KERLIX UNTIL PATIENT DISCHARGE AND HE RE VISITS HIS OUTPATIENT CLINIC VISIT Addendum: 09/23/19 at 1300 by Oliver Torrez RN Amended: Links added.
[2019-09-23] MEDS ORDERED: LISINOPRIL 20 MG TAB PO ONE (13:55)
[2019-09-23] MEDS ORDERED: INSULIN LISPRO 100 UNIT/1 ML 3ML VIAL SQ SCH (16:30)
[2019-09-23] MEDS ORDERED: ENOXAPARIN SOD INJ 40 MG/0.4 ML SYR SC SCH (17:00)
--- NOTE | 2019-09-23 19:13 | NUR ---
patient asked RN if he could go home, pt was informed that he has not been cleared by any doctors to be discharged. notified Dr. Overton that the patient is asking to go home, in case the patient decides to leave AMA.
[2019-09-23] MEDS ORDERED: NON-FORMULARY MEDICATION (Insulin Glargine (Lantus 3ML Pen) 15 UNITS) SQ SCH (21:00)
[2019-09-23] MEDS ORDERED: INSULIN GLARGINE 100 UNITS/ML VIAL SQ SCH (21:00)
[2019-09-23] MEDS ORDERED: AMLODIPINE BESYLATE 10 MG TAB PO SCH (23:15)
[2019-09-24] VITALS: BP 162/94
--- NOTE | 2019-09-24 01:33 | Progress Note ---
DATE: 09/23/2019 Medicine Progress Note SUBJECTIVE: The patient is doing well today with no complaints. No nausea, no vomiting. Reglan helped tremendously. PHYSICAL EXAMINATION: VITAL SIGNS: Temperature is 99.1, pulse 84, respiratory rate is 20, blood pressure was 180/70, and pulse ox 100% on room air. GENERAL: Not in acute distress. Alert and oriented x3. Cooperative on examination. HEENT: Head is normocephalic and atraumatic. Eyes; pupils are reactive to light bilaterally. PULMONARY: Clear to auscultation bilaterally. No wheezing, rales, or rhonchi. No crackles appreciated. CARDIOVASCULAR: Positive S1 and S2. No murmurs, rubs, or gallops appreciated. ABDOMEN: Soft, nondistended, and nontender to palpation. Bowel sounds present. MUSCULOSKELETAL: Strength is 5/5 throughout. No evidence of muscle deficits on examination with compression. NEUROLOGIC: Cranial nerves II through XII grossly intact. No evidence of any neurological deficits on exam. SKIN: Intact. Warm to touch. Good capillary refill. PSYCHIATRIC: Normal affect and mood. EXTREMITIES: No edema. Good range of motion throughout. LABORATORY FINDINGS: White count 8.6, hemoglobin 10.3, hematocrit 32, and platelets of 183. Chemistry; sodium 130, potassium 3.6, chloride 101, bicarb 20, anion gap of 12, BUN is 22, creatinine is 1.1, glucose 266, and calcium 8.3. Troponins were all negative. Total protein 6.2, albumin 3.4. Serology; coronavirus PCR is pending. Microbiology, none. IMAGING STUDIES: KUB. No acute radiographic abnormality. IMPRESSION: 1. Nausea and vomiting secondary to gastroparesis exacerbation. 2. Type 2 diabetes, longstanding. 3. Hypertension. 4. Dehydration. PLAN: At this time, the patient looks well hydrated. He is tolerating diet well. Put on full liquid, advance diet as tolerated. Stop IV fluids. Adjust antihypertensive medications. Continue with IV Reglan and Phenergan as well. GI is following. Lovenox for DVT prophylaxis. If the patient is doing well likely discharge home tomorrow. Alexei Overton MD JSD/MODL /[id number]
[2019-09-24 04:00] VITALS: BP 137/84
[2019-09-24] MEDS: METOCLOPRAMIDE HCL 10 MG/2ML VIAL IV SCH (06:05)
--- NOTE | 2019-09-24 06:42 | NUR ---
RECEIVED BEDSIDE SHIFT REPORT FROM OFF GOING NURSE. PATIENT IS RESTING IN BED. NO ACUTE DISTRESS NOTED. CALL LIGHT WITHIN REACH. BED IN THE LOWEST POSITION.
--- NOTE | 2019-09-24 07:15 | NUR ---
REPORT GIVEN TO DAYSHIFT NURSE. PATIENT IN STABLE CONDITION. NO SIGNS OF IV INFILTRATION. BED LOCKED AND IN LOW POSITION. CALL LIGHT WITHIN REACH.
[2019-09-24] MEDS: INSULIN LISPRO 100 UNIT/1 ML 3ML VIAL SQ SCH (07:30)
[2019-09-24 07:54] VITALS: BP 149/88
[2019-09-24 07:56] VITALS: BP 149/88
--- NOTE | 2019-09-24 08:22 | NUR ---
PATIENT STATED HE WAS FEELING BETTER AND DOES NOT WANT TO STAY IN THE HOSPITAL ANY LONGER. SIGNED AMA PAPERWORK. DR. CARTER NOTIFIED.
[2019-09-24] MEDS ORDERED: LISINOPRIL 20 MG TAB PO SCH (09:00)
--- NOTE | 2019-09-24 20:51 | Discharge Summary ---
FINAL DISCHARGE DIAGNOSES: 1. Acute gastroparesis exacerbation. 2. Nausea/vomiting. 3. Dehydration. 4. Uncontrolled type 2 diabetes. 5. The patient left against medical advice. CONSULTANTS: GI. PHYSICAL EXAMINATION: VITAL SIGNS: Temperature is 97.9, pulse 95, respiratory rate is 18, blood pressure 149/88, and pulse ox 100% on room air. LABORATORY FINDINGS: Show white count 8.6, hemoglobin 10.3, hematocrit is 32 platelets of 183. Chemistry; sodium 138, potassium 3.6, chloride 101, bicarb 20, anion gap of 12, BUN is 22, creatinine is 1.1, glucose 266, calcium 8.3. LFTs within normal range. Troponins were negative. Total protein 6.2 and albumin 3.4. SEROLOGY: Coronavirus is pending. MICROBIOLOGY: None. IMAGING STUDIES: Abdominal x-ray, no acute radiographic abnormality. HOSPITAL COURSE: This is a 43-year-old male with history of gastroparesis, uncontrolled type 2 diabetes, came from the [facility] emergency room with nausea, vomiting, and abdominal pain. KUB was performed, found to be negative. GI was consulted. The patient was on IV Reglan as well as other antinausea medication. He was on pain control. He was initiated on clear liquid diet, advanced as tolerated. He was on IV fluids for underlying dehydration. The patient was improving throughout the hospital course. This morning on 09/24/2019, the patient left against medical advice for unknown reasons. The nursing staff notified me. The patient signed appropriate documentation for against medical advice left in the chart. MEDICATIONS: See med reconciliation form. DISPOSITION: Left against medical advice. In the event of any worsening symptoms, the patient was advised to come back to the ED for further evaluation. Discharge summary took greater than 35 minutes. The patient left against medical advice and signed appropriate documentation left in the chart. MD CHRISTO Nuno/SOLANGE /[id number]
== END 2019-09-24 08:22 | disposition left against medical advice (07) | DRG 74 ==
LOC: FSED 07:00 → ERHOLD 09:41 → MED/SURG3 11:18
PROVIDERS: ADMIT Internal Medicine; ATTEND Internal Medicine
DX: E11.43 Type 2 diabetes mellitus with diabetic autonomic (poly)neuropathy (principal); K31.84 Gastroparesis; Z79.4 Long term (current) use of insulin; E11.65 Type 2 diabetes mellitus with hyperglycemia; Z11.59 Encounter for screening for other viral diseases; E86.0 Dehydration
CPT/HCPCS: 29581; 36415; 74018; 80048; 80053; 80076; 81003; 82948; 84484; 85025; 87635; 96374; 96376; 99251; 99284; J1650; J1815; J1817; J2270; J2405; J2550; J2765; J7030

== ENCOUNTER 2019-09-29 20:19 | Emergency (ER) | payer MEDICARE, OTHER ==
[~2019-09-29] VITALS: Ht 185.4 cm; Wt 88.5 kg
[2019-09-29] MEDS ORDERED: MORPHINE SULFATE 2 MG/ML SYR 1ML IV STA (20:40)
[2019-09-29] MEDS ORDERED: SODIUM CHLORIDE 0.9% 1000ML 1,000 ML IV STA (20:40)
[2019-09-29] MEDS ORDERED: LORAZEPAM INJ 2 MG/ML VIAL IV ONE (20:45)
[2019-09-29] MEDS ORDERED: PROMETHAZINE 25MG/ NS 50ML (IV) IV ONE (20:45)
[2019-09-29] MEDS ORDERED: PROMETHAZINE HCL (IM) 25 MG/ML VIAL ONE (20:55)
[2019-09-29] MEDS ORDERED: SODIUM CHLORIDE 0.9% 1000ML 1,000 ML ONE ×2 (20:56→20:57)
[2019-09-29] MEDS ORDERED: LORAZEPAM INJ 2 MG/ML VIAL ONE (20:56)
[2019-09-29] MEDS ORDERED: MORPHINE SULFATE INJ 4 MG/ML INJ 1ML ONE (20:56)
[2019-09-29] MEDS ORDERED: SODIUM CHLORIDE 0.9% 50ML 50 ML ONE (20:56)
--- NOTE | 2019-09-29 21:59 | NUR ---
PT IS SOUND ASLEEP ON R-SIDE. DID NOT AWAKEN TO VOICE WHEN ASKED HOW HE IS FEELING. INFORMED.
[2019-09-29] MEDS ORDERED: INSULIN REGULAR, HUMAN 100 UNIT/1 ML 3ML VIAL SQ ONE (22:45)
--- NOTE | 2019-09-29 22:54 | Emergency Department Note ---
History of Present Illnes History of Present Illness Chief Complaint: Abdominal Complaints History of Present Illness This is a 43 year old male . Historian: Patient Arrival Mode: Car Onset (how long ago): day(s) (2) Location: eigastric Quality: dull Severity: moderate Onset quality: gradual Duration (how long): day(s) (2) Timing of current episode: intermittent Progression: waxing and waning Chronicity: new Context: Denies recent illness, Denies recent surgery, Denies recent immobilization, Denies recent travel, Denies trauma/injury, Denies new medications, Denies hx of DVT/PE, Denies non-compliance w/ medications, Denies other Relieving factors: none Exacerbating factors: none Associated symptoms: Reports nausea/vomiting; Denies denies other symptoms, Denies confusion, Denies chest pain, Denies cough, Denies diaphoresis, Denies fever/chills, Denies headaches, Denies loss of appetite, Denies malaise, Denies rash, Denies seizure, Denies shortness of breath, Denies syncope, Denies weakness, Denies other Treatments prior to arrival: none Past Medical/Family History Physician Review I have reviewed the patient's past medical and family history. Any updates have been documented here. Past Medical History Recent Fever: No Clinical Suspicion of Infectio: No New/Unexplained Change in Ment: No Past Medical History: Diabetes Other Medical History: GASTROPARESIS Past Surgical History: Cholecysctectomy Other Surgery: LEFT FOOT SURGERY Social History Smoking Cessation: Former smoker Alcohol Use: None Any Illegal Drug Use: Yes (DELFINO 2-3X'S W[place]) Other Last Tetanus: UNKNOWN Any Pre-Existing Lines (PICC,: No Review of Systems Review of Systems Constitutional: Reports no symptoms EENTM: Reports no symptoms Cardiovascular: Reports no symptoms Respiratory: Reports no symptoms Gastrointestinal: Reports as per HPI Genitourinary: Reports no symptoms Musculoskeletal: Reports no symptoms Integumentary: Reports no symptoms Neurological: Reports no symptoms Psychological: Reports no symptoms Endocrine: Reports no symptoms Hematological/Lymphatic: Reports no symptoms Physical Exam Related Data Allergies: Coded Allergies: No Known Allergies (Unverified , 07/02/18) Triage Vital Signs Vital Signs Date Time Temp Pulse Resp B/P (MAP) Pulse Ox O2 Delivery O2 Flow Rate FiO2 09/29/19 20:31 99.0 97 18 196/97 99 Room Air Vital signs reviewed: Yes Physical Exam CONSTITUTIONAL Constitutional: Present well-developed, Present well-nourished HENT HENT: Present normocephalic, Present atraumatic, Present oropharynx clear/moist, Present nose normal HENT L/R: Present left ext ear normal, Present right ext ear normal EYES Eyes: Reports PERRL, Reports conjunctivae normal NECK Neck: Present ROM normal PULMONARY Pulmonary: Present effort normal, Present breath sounds normal CARDIOVASCULAR Cardiovascular: Present regular rhythm, Present heart sounds normal, Present capillary refill normal, Present normal rate GASTROINTESTINAL Abdominal: Present soft, Present bowel sounds normal, Present tender (epgastric) GENITOURINARY Genitourinary: Present exam deferred SKIN Skin: Present warm, Present dry MUSCULOSKELETAL Musculoskeletal: Present ROM normal NEUROLOGICAL Neurological: Present alert, Present oriented x 3, Present no gross motor or sensory deficits PSYCHOLOGICAL Psychological: Present mood/affect normal, Present judgement normal Results Laboratory Lab results reviewed: Yes Assessment & Plan Medical Decision Making MDM bstruction,,,gastritis Reassessment Reassessment time: 22:52 Reassessment better Assessment & Plan Final Impression: (1) Abdominal pain (2) Vomiting (3) Diabetic gastroparesis associated with type 2 diabetes mellitus Depart Disposition: HOME, SELF-CARE Last Vital Signs Date Time Temp Pulse Resp B/P (MAP) Pulse Ox O2 Delivery O2 Flow Rate FiO2 09/29/19 22:37 99.3 105 18 186/101 97 09/29/19 20:31 Room Air Home Meds Active Scripts Promethazine Hcl (PROMETHAZINE HCL) 25 Mg Tablet, 25 MG PO Q6H for vomiting, #20 TAB Prov:FILIBERTO ROSENTHAL MD 09/21/19 Metoclopramide Hcl (REGLAN) 10 Mg Tablet, 1 TAB PO ACHS for 30 Days Before meals Prov:JAREK LO NP 11/25/18 Pantoprazole Sodium* (PROTONIX) 40 Mg Tablet.dr, 40 MG PO DAILY for 30 Days Prov:JAREK LO NP 11/25/18 Reported Medications Ondansetron Hcl (ONDANSETRON HCL) 4 Mg Tablet, 4 MG SL Q6H PRN for NAUSEA 07/02/18 Insulin Glargine (LANTUS 3ML PEN) 100 Units/1 Ml Inj, 15 UNITS SQ HS 07/02/18 Lisinopril (LISINOPRIL) 5 Mg Tablet, 5 MG PO DAILY 07/02/18 Insulin Aspart (NOVOLOG) 100 Units/1 Ml Inj, 8 UNITS SQ TIDWM 07/02/18 Discontinued Scripts Losartan Potassium (LOSARTAN POTASSIUM) 25 Mg Tablet, 50 MG PO DAILY for 60 Days Prov:LALITO LUND [employer] MACHINE SUPERVISOR 08/25/19 Acetaminophen With Codeine (TYLENOL WITH CODEINE #3 TABLET) 1 Each Tablet, 300 MG PO Q6H PRN for pain, #20 TAB Prov:JAREK LO [employer] MACHINE SUPERVISOR 07/10/19 Medications in the ED Morphine Sulfate 2 mg NOW STAT IV Last administered on 09/29/19at 21:16; Admin Dose 2 MG; Start 09/29/19 at 20:40; Stop 09/29/19 at 20:45; Status DC Lorazepam 1 mg ONCE ONCE IV Last administered on 09/29/19at 21:17; Admin Dose 1 MG; Start 09/29/19 at 20:45; Stop 09/29/19 at 20:46; Status DC Sodium Chloride 1,000 ml @ 0 mls/hr Q0M STAT IV Last administered on 09/29/19at 21:15; Admin Dose 1,000 MLS/HR; Start 09/29/19 at 20:40; Stop 09/29/19 at 20:43; Status DC Promethazine HCl 25 mg STK-MED ONCE .ROUTE ; Start 09/29/19 at 20:55; Stop 09/29/19 at 20:53; Status DC Lorazepam 2 mg STK-MED ONCE .ROUTE ; Start 09/29/19 at 20:56; Stop 09/29/19 at 20:53; Status DC Morphine Sulfate 4 mg STK-MED ONCE .ROUTE ; Start 09/29/19 at 20:56; Stop 09/29/19 at 20:53; Status DC Sodium Chloride 50 ml @ ud STK-MED ONCE .ROUTE ; Start 09/29/19 at 20:56; Stop 09/29/19 at 20:53; Status DC Sodium Chloride 1,000 ml @ ud STK-MED ONCE .ROUTE ; Start 09/29/19 at 20:56; Stop 09/29/19 at 20:53; Status DC Sodium Chloride 1,000 ml @ ud STK-MED ONCE .ROUTE ; Start 09/29/19 at 20:57; Stop 09/29/19 at 20:53; Status DC Insulin Human Regular 5 unit ONCE ONCE SQ ; Start 09/29/19 at 22:45; Stop 09/29/19 at 22:46; Status FILIBERTO GALVAN MD Sep 29, 2019 22:54
[2019-09-29 23:05] VITALS: BP 172/98
[2019-09-29] MEDS ORDERED: INSULIN REGULAR, HUMAN 100 UNIT/1 ML 3ML VIAL ONE (23:06)
== END 2019-09-29 23:05 | disposition home or self-care (01) ==
LOC: FSED 20:40
DX: R10.13 Epigastric pain (principal); E11.43 Type 2 diabetes mellitus with diabetic autonomic (poly)neuropathy; K31.84 Gastroparesis; Z87.891 Personal history of nicotine dependence
CPT/HCPCS: 80048; 80076; 85025; 96365; 96374; 96376; 99283; J1817; J2060; J2270; J2550; J7030

== ENCOUNTER 2019-09-30 07:53 | Emergency (ER) | payer MEDICARE, OTHER ==
[~2019-09-30] VITALS: Ht 185.4 cm; Wt 88.5 kg
[2019-09-30] MEDS ORDERED: ONDANSETRON HCL INJ 2MG/ML 2ML 2 MG/ML VIAL IV STA ×2 (08:07→11:19)
[2019-09-30] MEDS ORDERED: PIPER-TAZ 3.375 GM 50 ML IV STA (08:07)
[2019-09-30] MEDS ORDERED: SODIUM CHLORIDE 0.9% 1000ML 1,000 ML IV STA (08:07)
[2019-09-30] MEDS ORDERED: MORPHINE SULFATE INJ 4 MG/ML INJ 1ML IV STA ×2 (08:07→11:19)
--- NOTE | 2019-09-30 08:20 | Emergency Department Note ---
History of Present Illnes History of Present Illness Chief Complaint: Abdominal Complaints History of Present Illness This is a 43 year old male c/o n/v abd pain x 2 days seen yesterday at [facility] and d/c home - PATIENT IN FROM HOME WITH COMPLAINTS OF NAUSEA AND VOMITING X 2 DAYS; STATES WAS SEEN AT [facility] FOR THE SAME; PATIENT WITH HISTORY OF GASTROPARESIS AND DM Historian: Patient Arrival Mode: Car Radiation: Reports abdomen Severity: moderate Duration (how long): day(s) (2) Progression: worsening Context: Denies recent illness, Denies recent surgery, Denies recent immobilization, Denies recent travel, Denies trauma/injury, Denies new medications, Denies hx of DVT/PE, Denies non-compliance w/ medications, Denies other Relieving factors: none Associated symptoms: Reports loss of appetite; Denies denies other symptoms, Denies confusion, Denies chest pain, Denies cough, Denies diaphoresis, Denies fever/chills, Denies headaches, Denies malaise, Denies nausea/vomiting, Denies rash, Denies seizure, Denies shortness of breath, Denies syncope, Denies weakness, Denies other Treatments prior to arrival: none Past Medical/Family History Physician Review I have reviewed the patient's past medical and family history. Any updates have been documented here. Past Medical History Recent Fever: No Clinical Suspicion of Infectio: No New/Unexplained Change in Ment: No Past Medical History: Diabetes Other Medical History: GASTROPARESIS Past Surgical History: Cholecysctectomy Other Surgery: LEFT FOOT SURGERY Social History Smoking Cessation: Never Smoker Alcohol Use: None Physically hurt or threatened: No Family History Family history of heart diseas: No Other Last Tetanus: UNKNOWN Any Pre-Existing Lines (PICC,: No Review of Systems Review of Systems Constitutional: Reports no symptoms EENTM: Reports no symptoms Cardiovascular: Reports no symptoms Respiratory: Reports no symptoms Gastrointestinal: Reports abdominal pain, Reports nausea, Reports vomiting Genitourinary: Reports no symptoms Musculoskeletal: Reports no symptoms Integumentary: Reports no symptoms Neurological: Reports no symptoms Psychological: Reports no symptoms Endocrine: Reports no symptoms Hematological/Lymphatic: Reports no symptoms Physical Exam Related Data Allergies: Coded Allergies: No Known Allergies (Unverified , 07/02/18) Triage Vital Signs Vital Signs Date Time Temp Pulse Resp B/P (MAP) Pulse Ox O2 Delivery O2 Flow Rate FiO2 09/30/19 07:59 96.6 96 18 174/111 98 Room Air Vital signs reviewed: Yes Physical Exam CONSTITUTIONAL Constitutional: Present ill appearing HENT HENT: Present normocephalic, Present atraumatic, Present oropharynx clear/moist, Present nose normal HENT L/R: Present left ext ear normal, Present right ext ear normal EYES Eyes: Reports PERRL, Reports conjunctivae normal NECK Neck: Present ROM normal PULMONARY Pulmonary: Present effort normal, Present breath sounds normal CARDIOVASCULAR Cardiovascular: Present regular rhythm, Present heart sounds normal, Present capillary refill normal, Present normal rate GASTROINTESTINAL Abdominal: Present soft, Present bowel sounds normal, Present tender (diffuse), Present other (c/o n/v ) GENITOURINARY Genitourinary: Present exam deferred SKIN Skin: Present warm, Present dry MUSCULOSKELETAL Musculoskeletal: Present ROM normal NEUROLOGICAL Neurological: Present alert, Present oriented x 3, Present no gross motor or sensory deficits PSYCHOLOGICAL Psychological: Present mood/affect normal, Present judgement normal Results Laboratory Laboratory Laboratory Tests Test 09/30/19 09:55 09/30/19 09:10 09/30/19 08:44 Prothrombin Time 13.3 seconds (11.9-14.5) Prothromb Time International Ratio 0.96 Activated Partial Thromboplast Time 26.1 seconds (23.8-35.5) Sodium Level 142 mmol/L (136-145) Potassium Level 3.9 mmol/L (3.5-5.1) Chloride Level 103 mmol/L (98-107) Carbon Dioxide Level 30 mmol/L (22-29) Anion Gap 12.9 mmol/L (8-16) Blood Urea Nitrogen 13 mg/dL (7-26) Creatinine 1.18 mg/dL (0.72-1.25) Estimat Glomerular Filtration Rate > 60 ML/MIN (60-) BUN/Creatinine Ratio 11 (6-25) Glucose Level 328 mg/dL (74-118) Lactic Acid Level 1.0 mmol/L (0.5-2.0) Calcium Level 8.8 mg/dL (8.4-10.2) Total Bilirubin 0.5 mg/dL (0.2-1.2) Aspartate Amino Transf (AST/SGOT) 16 IU/L (5-34) Alanine Aminotransferase (ALT/SGPT) 15 IU/L (0-55) Alkaline Phosphatase 92 IU/L (40-150) Creatine Kinase 365 IU/L (30-200) Creatine Kinase MB 1.50 ng/mL (0-5.0) Troponin I 0.001 ng/mL (0-0.300) Total Protein 6.4 g/dL (6.5-8.1) Albumin 3.4 g/dL (3.5-5.0) Globulin 3.0 g/dL (2.3-3.5) Albumin/Globulin Ratio 1.1 (0.8-2.0) Amylase Level 49 U/L (25-125) Lipase < 4 U/L (8-78) White Blood Count 9.64 x10e3/uL (4.8-10.8) Red Blood Count 3.70 x10e6/uL (4.3-5.7) Hemoglobin 10.4 g/dL (14.0-18.0) Hematocrit 32.9 % (38.2-49.6) Mean Corpuscular Volume 88.9 fL (81-99) Mean Corpuscular Hemoglobin 28.1 pg (28-32) Mean Corpuscular Hemoglobin Concent 31.6 g/dL (31-35) Red Cell Distribution Width 14.0 % (11.7-14.4) Platelet Count 263 x10e3/uL (140-360) Neutrophils (%) (Auto) 80.4 % (38.7-80.0) Lymphocytes (%) (Auto) 11.5 % (18.0-39.1) Monocytes (%) (Auto) 6.3 % (4.4-11.3) Eosinophils (%) (Auto) 0.7 % (0.0-6.0) Basophils (%) (Auto) 0.8 % (0.0-1.0) Neutrophils # (Auto) 7.7 (2.1-6.9) Lymphocytes # (Auto) 1.1 (1.0-3.2) Monocytes # (Auto) 0.6 (0.2-0.8) Eosinophils # (Auto) 0.1 (0.0-0.4) Basophils # (Auto) 0.1 (0.0-0.1) Absolute Immature Granulocyte (auto 0.03 x10e3/uL (0-0.1) Urine Color Yellow (YELLOW) Urine Clarity Clear (CLEAR) Urine pH 7 (5 - 7) Urine Specific [place] 1.025 (1.010-1.025) Urine Protein 1+ (NEGATIVE) Urine Glucose (UA) 2+ (NEGATIVE) Urine Ketones 2+ (NEGATIVE) Urine Blood Trace (NEGATIVE) Urine Nitrite Negative (NEGATIVE) Urine Bilirubin Negative (NEGATIVE) Urine Urobilinogen 0.2 mg/dL (0.2 - 1) Urine Leukocyte Esterase Negative (NEGATIVE) Urine RBC 6-10 /HPF (0-5) Urine WBC 21-50 /HPF (0-5) Urine Epithelial Cells Rare /LPF (NONE) Urine Bacteria Few /HPF (NONE) Urine Opiates Screen Positive (NEGATIVE) Urine Methadone Screen Negative (NEGATIVE) Urine Barbiturates Screen Negative (NEGATIVE) Urine Phencyclidine Screen Negative (NEGATIVE) Urine Amphetamines Screen Negative (NEGATIVE) Urine Methamphetamines Screen Negative (NEGATIVE) Urine Benzodiazepines Screen Positive (NEGATIVE) Urine Cocaine Screen Negative (NEGATIVE) Urine Cannabinoids Screen Positive (NEGATIVE) Imaging Impressions Procedure: [id number] DX/CHEST SINGLE (PORTABLE) Exam Date: 09/30/19 Exam Time: 834 REPORT STATUS: Signed EXAMINATION: CHEST SINGLE (PORTABLE) INDICATION: ^ERMD ORDER ^[id number] ^0835 ^Y COMPARISON: Chest radiograph 07/23/2019, CT abdomen and pelvis 07/23/2019 FINDINGS: AP view TUBES and LINES: None. LUNGS: Lungs are well inflated. Mild reticular opacities in both lung bases and perihilar regions, left greater than right. PLEURA: No pleural effusion or pneumothorax. HEART AND MEDIASTINUM: The cardiomediastinal silhouette is unremarkable.. BONES AND SOFT TISSUES: No acute osseous lesion. Soft tissues are unremarkable. UPPER ABDOMEN: No free air under the diaphragm. IMPRESSION: Radiographic findings suggestive of developing atypical infection including viral pneumonia. Differential diagnosis includes scattered areas of aspiration. Signed by: Dr. Al Bryan M.D. on 09/30/2019 9:40 AM Dictated By: LA BRYAN MD 9 Transcribed By: PAULA on 09/30/19939 COPY TO: JEANNIE QUINONES~ EXAM: CT Abdomen and Pelvis WITH contrast INDICATION: ^abd pain n/v COMPARISON: Chest radiograph 09/30/2019, KUB 09/22/[address] abdomen and pelvis 07/23/2019 TECHNIQUE: Abdomen and pelvis were scanned utilizing a multidetector helical scanner from the lung base to the pubic symphysis after administration of IV contrast. Coronal and sagittal reformations were obtained. Routine protocol was performed. Scan was performed when during portal venous phase. IV CONTRAST: 100 mL of Isovue-370 ORAL CONTRAST: None RADIATION DOSE: Total DLP: 711.4 mGy*cm Estimated effective dose: (DLP x 0.015 x size factor) mSv COMPLICATIONS: None FINDINGS: LINES and TUBES: None. LOWER THORAX: Unremarkable. Previously noted reticular opacities in both lung bases likely represented poor inspiratory subsegmental atelectasis. Specifically, no findings to suggest viral pneumonia in the visualized lung bases. HEPATOBILIARY: No focal hepatic lesions. No biliary ductal dilation. GALLBLADDER: Cholecystectomy. SPLEEN: No splenomegaly. PANCREAS: No focal masses or ductal dilatation. ADRENALS: No adrenal nodules KIDNEYS/URETERS: Kidneys enhance symmetrically. No hydronephrosis. No cystic or solid mass lesions. No stones. GI TRACT: The stomach is partially collapsed but is associated with diffuse circumferential wall thickening and a small hiatal hernia, unchanged since prior exam. Worsening circumferential wall thickening of the ascending and transverse colon. There appears to be also worsening circumferential wall thickening of the distal sigmoid and rectum. Minimal fat stranding surrounding the distal sigmoid colon and rectum. There is also mild haziness diffusely in the mesenteric surrounding the ascending and descending colon. No fluid collections or abscess. Moderate amount of retained stones. No bowel obstruction. Appendix is normal. PELVIC ORGANS/BLADDER: Unremarkable. LYMPH NODES: No lymphadenopathy. VESSELS: Mild scattered atherosclerotic calcifications of the abdominal aorta without aneurysm. PERITONEUM / RETROPERITONEUM: No free air or fluid. BONES: Unremarkable. SOFT TISSUES: Unremarkable. IMPRESSION: Worsening colitis mainly involving the ascending colon, distal sigmoid, and rectum. No pericolonic abscess or drainable fluid collections. No bowel obstruction. Signed by: Dr. Al Bryan M.D. on 09/30/2019 12:47 PM Dictated By: AL RBYAN MD [id number] Transcribed By: PAULA on 09/30/19 1247 COPY TO: JEANNIE QUINONES~ Procedures 12 Lead ECG Interpretation ECG Interpretation : ECG: ECG 1 Director Specialty: Interpreted by ED physician Date: Sep 30, 2019 Time: 08:41 Prior ECG tracings: reviewed Rhythm: sinus rhythm Rate: normal BPM: 86 QRS axis: normal Clinical Impression: normal ECG EJ/ Peripheral Line EJ/peripheral line location: right neck Time out performed: Yes Skin cleansed in sterile fashi: Yes Size (gauge): 18 IV secured/dressing applied: Yes Patient tolerated procedure: well Assessment & Plan Medical Decision Making MDM 43 ym presented to ed c/o n/v abd pain x 2 days noted diffuse tenderness c/o cramping hx dm poss gastroporesis - ordered lab ekg cxr ct abd - pt medicate dw/ ns zofran morphine zoosyn r/o gastroporesis sbo acs pne electrolyte imbalance dka Reassessment Reassessment discussed lab rad ct results plan of care and f/u instructions plan: 1. increase oral fluids 2. tylenol andmotrin 3. return to ed as needed 4. follow up with your doctor / GI doctor in 1-2 days without fail Assessment & Plan Final Impression: (1) Abdominal pain (2) Nausea & vomiting (3) Colitis Depart Disposition: HOME, SELF-CARE Last Vital Signs Date Time Temp Pulse Resp B/P (MAP) Pulse Ox O2 Delivery O2 Flow Rate FiO2 09/30/19 07:59 96.6 96 18 174/111 98 Room Air Home Meds Active Scripts Promethazine Hcl (PROMETHAZINE HCL) 25 Mg Tablet, 25 MG PO Q6H for vomiting, #20 TAB Prov:FILIBERTO ROSENTHAL MD 09/21/19 Metoclopramide Hcl (REGLAN) 10 Mg Tablet, 1 TAB PO ACHS for 30 Days Before meals Prov:JAREK LO NP 11/25/18 Pantoprazole Sodium* (PROTONIX) 40 Mg Tablet.dr 40 MG PO DAILY for 30 Days Prov:JAREK LO NP 11/25/18 Reported Medications Ondansetron Hcl (ONDANSETRON HCL) 4 Mg Tablet, 4 MG SL Q6H PRN for NAUSEA 07/02/18 Insulin Glargine (LANTUS 3ML PEN) 100 Units/1 Ml Inj, 15 UNITS SQ HS 07/02/18 Lisinopril (LISINOPRIL) 5 Mg Tablet, 5 MG PO DAILY 07/02/18 Insulin Aspart (NOVOLOG) 100 Units/1 Ml Inj, 8 UNITS SQ TIDWM 07/02/18 Medications in the ED Sodium Chloride 1,000 ml @ 0 mls/hr Q0M STAT IV ; Start 09/30/19 at 08:07; Stop 09/30/19 at 08:11; Status DC Piperacillin Sod/ Tazobactam Sod 50 ml @ 50 mls/hr ONCE STAT IV ; Start 09/30/19 at 08:07; Stop 09/30/19 at 09:06; Status UNV Morphine Sulfate 4 mg ONCE STAT IV ; Start 09/30/19 at 08:07; Stop 09/30/19 at 08:08; Status UNV Ondansetron HCl 4 mg ONCE STAT IV ; Start 09/30/19 at 08:07; Stop 09/30/19 at 08:08; Status UNV JEANNIE QUINONES Sep 30, 2019 08:20
[2019-09-30] MEDS ORDERED: IOPAMIDOL 370 MG/ML 200 ML INFUS..BTL INJ ONE ×2 (08:53→13:03)
[2019-09-30] MEDS ORDERED: SODIUM CHLORIDE 0.9% 50ML 50 ML ONE (08:53)
[2019-09-30 09:23] LABS: BASOPHILS # (AUTO) 0.1 (0.0-0.1); BASOPHILS % 0.8 % (0.0-1.0); EOSINOPHILS # (AUTO) 0.1 (0.0-0.4); EOSINOPHILS % 0.7 % (0.0-6.0); HEMATOCRIT 32.9 % (38.2-49.6); HEMOGLOBIN 10.4 g/dL (14.0-18.0); LYMPHOCYTES # (AUTO) 1.1 (1.0-3.2); LYMPHOCYTES % 11.5 % (18.0-39.1); MEAN CORPUSCULAR HEMOGLOBIN 28.1 pg (28-32); MEAN CORPUSCULAR HGB CONC 31.6 g/dL (31-35); MEAN CORPUSCULAR VOLUME 88.9 fL (81-99); MONOCYTES # (AUTO) 0.6 (0.2-0.8); MONOCYTES % 6.3 % (4.4-11.3); NEUTROPHILS # (AUTO) 7.7 (2.1-6.9); NEUTROPHILS % 80.4 % (38.7-80.0); PLATELET COUNT 263 x10e3/uL (140-360)
--- NOTE | 2019-09-30 09:44 | Diagnostic Imaging Report ---
EXAMINATION: CHEST SINGLE (PORTABLE) INDICATION: ^ERMD ORDER ^[id number] ^0835 ^Y COMPARISON: Chest radiograph 07/23/2019, CT abdomen and pelvis 07/23/2019 FINDINGS: AP view TUBES and LINES: None. LUNGS: Lungs are well inflated. Mild reticular opacities in both lung bases and perihilar regions, left greater than right. PLEURA: No pleural effusion or pneumothorax. HEART AND MEDIASTINUM: The cardiomediastinal silhouette is unremarkable.. BONES AND SOFT TISSUES: No acute osseous lesion. Soft tissues are unremarkable. UPPER ABDOMEN: No free air under the diaphragm. IMPRESSION: Radiographic findings suggestive of developing atypical infection including viral pneumonia. Differential diagnosis includes scattered areas of aspiration. Signed by: Dr. Maggie Kan M.D. on 09/30/2019 9:40 AM
[2019-09-30 09:54] LABS: CLARITY,URINE CLEAR (CLEAR); COLOR,URINE YELLOW (YELLOW)
[2019-09-30 09:55] LABS: AMPHETAMINES SCREEN,URINE NEGATIVE (NEGATIVE); BENZODIAZEPINES SCREEN,URINE POSITIVE (NEGATIVE); KETONES,URINE 2+ (NEGATIVE); LEUKOCYTE ESTERASE ,URINE NEGATIVE (NEGATIVE); NITRITE,URINE NEGATIVE (NEGATIVE); PHENCYCLIDINE SCREEN,URINE NEGATIVE (NEGATIVE); PROTEIN,URINE DIPSTICK 1+ (NEGATIVE)
[2019-09-30 09:58] LABS: BILIRUBIN,URINE NEGATIVE (NEGATIVE); URINE UROBILINOGEN 0.2 mg/dL (0.2 - 1)
[2019-09-30 10:03] LABS: BACTERIA,URINE FEW /HPF; EPITHELIAL CELLS,URINE RARE /LPF; WBC,URINE (MAN) 21-50 /HPF (0-5)
[2019-09-30 10:20] LABS: INR 0.96; PROTHROMBIN TIME 13.3 seconds (11.9-14.5)
[2019-09-30 10:21] LABS: PARTIAL THROMBOPLASTIN TIME 26.1 seconds (23.8-35.5)
[2019-09-30 10:28] LABS: ALANINE AMINOTRANSFERASE 15 IU/L (0-55); ALBUMIN 3.4 g/dL (3.5-5.0); ALBUMIN/GLOBULIN RATIO 1.1 (0.8-2.0); ALKALINE PHOSPHATASE 92 IU/L (40-150); AMYLASE 49 U/L (25-125); ANION GAP 12.9 mmol/L (8-16); BLOOD UREA NITROGEN 13 mg/dL (7-26); BUN/CREATININE RATIO 11 (6-25); CALCIUM 8.8 mg/dL (8.4-10.2); CARBON DIOXIDE 30 mmol/L (22-29); CHLORIDE 103 mmol/L (98-107); CREATINE KINASE 365 IU/L (30-200); CREATININE, SERUM 1.18 mg/dL (0.72-1.25); EST GLOMERULAR FILTRATION RATE > 60 ML/MIN (60-); GLUCOSE 328 mg/dL (74-118); POTASSIUM 3.9 mmol/L (3.5-5.1); SODIUM 142 mmol/L (136-145)
[2019-09-30 10:29] LABS: LIPASE < 4 U/L (8-78)
--- NOTE | 2019-09-30 12:51 | Diagnostic Imaging Report ---
EXAM: CT Abdomen and Pelvis WITH contrast INDICATION: ^abd pain n/v COMPARISON: Chest radiograph 09/30/2019, KUB 09/22/[address] abdomen and pelvis 07/23/2019 TECHNIQUE: Abdomen and pelvis were scanned utilizing a multidetector helical scanner from the lung base to the pubic symphysis after administration of IV contrast. Coronal and sagittal reformations were obtained. Routine protocol was performed. Scan was performed when during portal venous phase. IV CONTRAST: 100 mL of Isovue-370 ORAL CONTRAST: None RADIATION DOSE: Total DLP: 711.4 mGy*cm Estimated effective dose: (DLP x 0.015 x size factor) mSv COMPLICATIONS: None FINDINGS: LINES and TUBES: None. LOWER THORAX: Unremarkable. Previously noted reticular opacities in both lung bases likely represented poor inspiratory subsegmental atelectasis. Specifically, no findings to suggest viral pneumonia in the visualized lung bases. HEPATOBILIARY: No focal hepatic lesions. No biliary ductal dilation. GALLBLADDER: Cholecystectomy. SPLEEN: No splenomegaly. PANCREAS: No focal masses or ductal dilatation. ADRENALS: No adrenal nodules KIDNEYS/URETERS: Kidneys enhance symmetrically. No hydronephrosis. No cystic or solid mass lesions. No stones. GI TRACT: The stomach is partially collapsed but is associated with diffuse circumferential wall thickening and a small hiatal hernia, unchanged since prior exam. Worsening circumferential wall thickening of the ascending and transverse colon. There appears to be also worsening circumferential wall thickening of the distal sigmoid and rectum. Minimal fat stranding surrounding the distal sigmoid colon and rectum. There is also mild haziness diffusely in the mesenteric surrounding the ascending and descending colon. No fluid collections or abscess. Moderate amount of retained stones. No bowel obstruction. Appendix is normal. PELVIC ORGANS/BLADDER: Unremarkable. LYMPH NODES: No lymphadenopathy. VESSELS: Mild scattered atherosclerotic calcifications of the abdominal aorta without aneurysm. PERITONEUM / RETROPERITONEUM: No free air or fluid. BONES: Unremarkable. SOFT TISSUES: Unremarkable. IMPRESSION: Worsening colitis mainly involving the ascending colon, distal sigmoid, and rectum. No pericolonic abscess or drainable fluid collections. No bowel obstruction. Signed by: Dr. Maggie Kan M.D. on 09/30/2019 12:47 PM
[2019-09-30] MEDS ORDERED: METRONIDAZOLE 500 MG TAB PO ONE (13:00)
[2019-09-30] MEDS ORDERED: METOCLOPRAMIDE HCL 10 MG/2ML VIAL IV ONE (14:15)
== END 2019-09-30 14:10 | disposition home or self-care (01) ==
LOC: ER 08:15
DX: R10.9 Unspecified abdominal pain (principal); K52.9 Noninfective gastroenteritis and colitis, unspecified; E11.65 Type 2 diabetes mellitus with hyperglycemia; R11.2 Nausea with vomiting, unspecified
CPT/HCPCS: 36415; 71045; 74177; 80053; 80307; 81001; 82150; 82550; 82553; 83605; 83690; 84484; 85025; 85610; 85730; 87040; 87086; 87635; 93005; 99284; J2270; J2405; J2543; J7030; Q9967

== ENCOUNTER 2019-10-03 15:34 | Inpatient (IN) | payer MEDICARE, OTHER ==
[~2019-10-03] VITALS: Ht 185.4 cm; Wt 88.5 kg
[2019-10-03] MEDS ORDERED: SODIUM CHLORIDE 0.9% 1000ML 1,000 ML IV STA ×2 (16:38)
[2019-10-03] MEDS ORDERED: ONDANSETRON HCL INJ 2MG/ML 2ML 2 MG/ML VIAL IV STA (16:38)
--- NOTE | 2019-10-03 16:51 | Emergency Department Note ---
History of Present Illnes History of Present Illness Chief Complaint: Abdominal Complaints History of Present Illness This is a 43 year old male arrives to the ED requesting to be admitted for colitis . Historian: Patient Arrival Mode: Car Onset (how long ago): year(s) Onset quality: unable to specify Duration (how long): month(s) Timing of current episode: intermittent Progression: waxing and waning Relieving factors: none Exacerbating factors: none (FILIPPO HUMPHRIES DO) Historian: Patient (LU LUND DO) Past Medical/Family History Physician Review I have reviewed the patient's past medical and family history. Any updates have been documented here. (FILIPPO HUMPHRIES DO) Past Medical History Recent Fever: No Clinical Suspicion of Infectio: No New/Unexplained Change in Ment: No Past Medical History: Diabetes Other Medical History: GASTROPARESIS Past Surgical History: Cholecysctectomy Other Surgery: LEFT FOOT SURGERY (FILIPPO HUMPHRIES DO) Recent Fever: No Clinical Suspicion of Infectio: No New/Unexplained Change in Ment: No Past Medical History: Diabetes (LU LUND DO) Social History Smoking Cessation: Never Smoker Alcohol Use: None Any Illegal Drug Use: Yes (LU LUND DO) Other Last Tetanus: UNKNOWN (FILIPPO HUMPHRIES DO) Review of Systems Review of Systems Constitutional: Reports no symptoms EENTM: Reports no symptoms Cardiovascular: Reports no symptoms Respiratory: Reports no symptoms Gastrointestinal: Reports abdominal pain, Reports nausea, Reports vomiting Genitourinary: Reports no symptoms Musculoskeletal: Reports no symptoms Integumentary: Reports no symptoms Neurological: Reports no symptoms Psychological: Reports no symptoms Endocrine: Reports no symptoms Hematological/Lymphatic: Reports no symptoms (LU LUND DO) Physical Exam Related Data Allergies: Coded Allergies: No Known Allergies (Unverified , 07/02/18) Triage Vital Signs Vital Signs Date Time Temp Pulse Resp B/P (MAP) Pulse Ox O2 Delivery O2 Flow Rate FiO2 10/03/19 16:16 99.3 99 18 200/96 99 Room Air (FILIPPO HUMPHRIES DO) Vital signs reviewed: Yes (LU LUND DO) Physical Exam CONSTITUTIONAL HENT EYES NECK PULMONARY CARDIOVASCULAR GASTROINTESTINAL GENITOURINARY SKIN MUSCULOSKELETAL NEUROLOGICAL PSYCHOLOGICAL (FILIPPO HUMPHRIES DO) Constitutional: Present obese, Present diaphoretic, Present ill appearing HENT: Present normocephalic, Present atraumatic, Present oropharynx clear/moist, Present nose normal HENT L/R: Present left ext ear normal, Present right ext ear normal Eyes: Reports PERRL, Reports conjunctivae normal Neck: Present ROM normal Pulmonary: Present effort normal, Present breath sounds normal Cardiovascular: Present regular rhythm, Present heart sounds normal, Present capillary refill normal, Present normal rate Abdominal: Present soft, Present tender (diffuse) Genitourinary: Present exam deferred Skin: Present warm, Present dry Musculoskeletal: Present ROM normal Neurological: Present alert, Present oriented x 3, Present no gross motor or sensory deficits Psychological: Present mood/affect normal, Present judgement normal (LUND,LU DO) Results Laboratory Lab results reviewed: Yes Laboratory comments Laboratory Tests Test 10/04/19 06:25 10/04/19 01:50 White Blood Count 11.92 x10e3/uL (4.8-10.8) Red Blood Count 3.84 x10e6/uL (4.3-5.7) Hemoglobin 10.7 g/dL (14.0-18.0) Hematocrit 34.6 % (38.2-49.6) Mean Corpuscular Volume 90.1 fL (81-99) Mean Corpuscular Hemoglobin 27.9 pg (28-32) Mean Corpuscular Hemoglobin Concent 30.9 g/dL (31-35) Red Cell Distribution Width 14.2 % (11.7-14.4) Platelet Count 272 x10e3/uL (140-360) Neutrophils (%) (Auto) 82.8 % (38.7-80.0) Lymphocytes (%) (Auto) 9.3 % (18.0-39.1) Monocytes (%) (Auto) 7.1 % (4.4-11.3) Eosinophils (%) (Auto) 0.0 % (0.0-6.0) Basophils (%) (Auto) 0.4 % (0.0-1.0) Neutrophils # (Auto) 9.9 (2.1-6.9) Lymphocytes # (Auto) 1.1 (1.0-3.2) Monocytes # (Auto) 0.9 (0.2-0.8) Eosinophils # (Auto) 0.0 (0.0-0.4) Basophils # (Auto) 0.1 (0.0-0.1) Absolute Immature Granulocyte (auto 0.05 x10e3/uL (0-0.1) Sodium Level 146 mmol/L (136-145) Potassium Level 3.6 mmol/L (3.5-5.1) Chloride Level 106 mmol/L (98-107) Carbon Dioxide Level 29 mmol/L (22-29) Anion Gap 14.6 mmol/L (8-16) Blood Urea Nitrogen 12 mg/dL (7-26) Creatinine 1.33 mg/dL (0.72-1.25) Estimat Glomerular Filtration Rate > 60 ML/MIN (60-) BUN/Creatinine Ratio 9 (6-25) Glucose Level 105 mg/dL (74-118) Calcium Level 9.5 mg/dL (8.4-10.2) Total Bilirubin 0.4 mg/dL (0.2-1.2) Aspartate Amino Transf (AST/SGOT) 20 IU/L (5-34) Alanine Aminotransferase (ALT/SGPT) 14 IU/L (0-55) Alkaline Phosphatase 86 IU/L (40-150) Total Protein 7.4 g/dL (6.5-8.1) Albumin 4.1 g/dL (3.5-5.0) Globulin 3.3 g/dL (2.3-3.5) Albumin/Globulin Ratio 1.2 (0.8-2.0) (LU LUND DO) Assessment & Plan Medical Decision Making MDM J signed out to Dr. Lund to follow-up labs and imaging (FILIPPO HUMPHRIES DO) MDM 43 yom with recurrent abd pain with hematemesis . CBC, CMP, UA and CTS ordered to r/o appendicitis, diverticulitis, UTI, kidney stone, perforated viscus, obstruction, ischemia, and biliary pathology (LU LUND DO) Assessment & Plan Final Impression: (1) Intractable nausea and vomiting (2) Abnormal renal function (3) Hematemesis (LU LUND DO) Depart Disposition: ADMITTED Last Vital Signs Date Time Temp Pulse Resp B/P (MAP) Pulse Ox O2 Delivery O2 Flow Rate FiO2 10/03/19 16:16 99.3 99 18 200/96 99 Room Air (FILIPPO HUMPHRIES DO) Home Meds Active Scripts Promethazine Hcl (PROMETHAZINE HCL) 25 Mg Tablet, 25 MG PO Q6H for vomiting, #20 TAB Prov:FILIBERTO ROSENTHAL MD 09/21/19 Metoclopramide Hcl (REGLAN) 10 Mg Tablet, 1 TAB PO ACHS for 30 Days Before meals Prov:JAREK LO NP 11/25/18 Pantoprazole Sodium* (PROTONIX) 40 Mg Tablet.dr, 40 MG PO DAILY for 30 Days Prov:JAREK LO NP 11/25/18 Reported Medications Ondansetron Hcl (ONDANSETRON HCL) 4 Mg Tablet, 4 MG SL Q6H PRN for NAUSEA 07/02/18 Insulin Glargine (LANTUS 3ML PEN) 100 Units/1 Ml Inj, 15 UNITS SQ HS 07/02/18 Lisinopril (LISINOPRIL) 5 Mg Tablet, 5 MG PO DAILY 07/02/18 Insulin Aspart (NOVOLOG) 100 Units/1 Ml Inj, 8 UNITS SQ TIDWM 07/02/18 FILIPPO HUMPHRIES DO Oct 03, 2019 16:51 LU LUND DO Oct 03, 2019 23:20
[2019-10-03 19:30] LABS: BASOPHILS # (AUTO) 0.1 (0.0-0.1); BASOPHILS % 0.7 % (0.0-1.0); EOSINOPHILS % 0.4 % (0.0-6.0); HEMOGLOBIN 12.3 g/dL (14.0-18.0); LYMPHOCYTES # (AUTO) 1.2 (1.0-3.2); LYMPHOCYTES % 14.5 % (18.0-39.1); MEAN CORPUSCULAR HEMOGLOBIN 28.5 pg (28-32); MEAN CORPUSCULAR HGB CONC 31.5 g/dL (31-35); MEAN CORPUSCULAR VOLUME 90.5 fL (81-99); MONOCYTES # (AUTO) 0.6 (0.2-0.8); MONOCYTES % 7.6 % (4.4-11.3); NEUTROPHILS # (AUTO) 6.3 (2.1-6.9); NEUTROPHILS % 76.3 % (38.7-80.0); PLATELET COUNT 296 x10e3/uL (140-360); RED BLOOD COUNT 4.31 x10e6/uL (4.3-5.7); RED CELL DISTRIBUTION WIDTH 13.8 % (11.7-14.4)
[2019-10-03] MEDS ORDERED: METOCLOPRAMIDE HCL 10 MG/2ML VIAL IV STA (23:08)
[2019-10-04] VITALS (9 sets, daily range): BP systolic 157–199; BP diastolic 90–112
[2019-10-04] MEDS ORDERED: LIDOCAINE VISC 2% SOLN 15 ML UDC PO STA (00:27)
[2019-10-04] MEDS ORDERED: DEXTROSE 50% SYRINGE 50 ML IV PRN (01:15)
[2019-10-04 02:20] LABS: ALANINE AMINOTRANSFERASE 14 IU/L (0-55); ALBUMIN 4.1 g/dL (3.5-5.0); ALBUMIN/GLOBULIN RATIO 1.2 (0.8-2.0); ALKALINE PHOSPHATASE 86 IU/L (40-150); ANION GAP 14.6 mmol/L (8-16); BLOOD UREA NITROGEN 12 mg/dL (7-26); BUN/CREATININE RATIO 9 (6-25); CALCIUM 9.5 mg/dL (8.4-10.2); CARBON DIOXIDE 29 mmol/L (22-29); CHLORIDE 106 mmol/L (98-107); CREATININE, SERUM 1.33 mg/dL (0.72-1.25); EST GLOMERULAR FILTRATION RATE > 60 ML/MIN (60-); GLUCOSE 105 mg/dL (74-118); POTASSIUM 3.6 mmol/L (3.5-5.1); SODIUM 146 mmol/L (136-145)
[2019-10-04] MEDS ORDERED: SODIUM CHLORIDE 0.9% 50ML 50 ML ONE (03:00)
[2019-10-04] MEDS ORDERED: IOPAMIDOL 370 MG/ML 200 ML INFUS..BTL INJ ONE (03:00)
[2019-10-04] MEDS: ONDANSETRON HCL INJ 2MG/ML 2ML 2 MG/ML VIAL IV PRN ×5 (03:02→22:45)
[2019-10-04] MEDS: MORPHINE SULFATE INJ 4 MG/ML INJ 1ML IV PRN ×5 (03:02→22:45)
--- NOTE | 2019-10-04 04:20 | NUR ---
PT IS TRANSFERRED FROM ER .PT IS AOX3 C/O PAIN RESPIRATIONS ARE EVEN AND UNLABORED .SKIN WARM AND DRY TO TOUCH LEFT AC 20 G S/L ORIENTED THE PT TO THE ENVIRONMENT .GIVEN ORDERED PAIN MEDICATION AND NAUSEA MEDICATION CALL LIGHT WITH IN REACH .CONTINUE TO MONITOR
[2019-10-04] MEDS: METOCLOPRAMIDE HCL 10 MG/2ML VIAL IV SCH ×3 (05:57→17:06)
[2019-10-04] MEDS: METOPROLOL TARTRATE INJ 1 MG/ML VIAL IV PRN ×2 (05:58→22:45)
[2019-10-04 06:29] LABS: BASOPHILS # (AUTO) 0.1 (0.0-0.1); BASOPHILS % 0.4 % (0.0-1.0); HEMATOCRIT 34.6 % (38.2-49.6); HEMOGLOBIN 10.7 g/dL (14.0-18.0); LYMPHOCYTES # (AUTO) 1.1 (1.0-3.2); LYMPHOCYTES % 9.3 % (18.0-39.1); MEAN CORPUSCULAR HEMOGLOBIN 27.9 pg (28-32); MEAN CORPUSCULAR HGB CONC 30.9 g/dL (31-35); MEAN CORPUSCULAR VOLUME 90.1 fL (81-99); MONOCYTES # (AUTO) 0.9 (0.2-0.8); MONOCYTES % 7.1 % (4.4-11.3); NEUTROPHILS # (AUTO) 9.9 (2.1-6.9); NEUTROPHILS % 82.8 % (38.7-80.0); PLATELET COUNT 272 x10e3/uL (140-360); RED BLOOD COUNT 3.84 x10e6/uL (4.3-5.7); RED CELL DISTRIBUTION WIDTH 14.2 % (11.7-14.4)
--- NOTE | 2019-10-04 06:42 | NUR ---
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
[2019-10-04 06:58] LABS: ALANINE AMINOTRANSFERASE 15 IU/L (0-55); ALBUMIN 3.9 g/dL (3.5-5.0); ALBUMIN/GLOBULIN RATIO 1.2 (0.8-2.0); ALKALINE PHOSPHATASE 90 IU/L (40-150); ANION GAP 13.8 mmol/L (8-16); BLOOD UREA NITROGEN 11 mg/dL (7-26); BUN/CREATININE RATIO 9 (6-25); CALCIUM 9.2 mg/dL (8.4-10.2); CARBON DIOXIDE 29 mmol/L (22-29); CHLORIDE 104 mmol/L (98-107); CREATININE, SERUM 1.23 mg/dL (0.72-1.25); EST GLOMERULAR FILTRATION RATE > 60 ML/MIN (60-); GLUCOSE 115 mg/dL (74-118); POTASSIUM 3.8 mmol/L (3.5-5.1); SODIUM 143 mmol/L (136-145)
--- NOTE | 2019-10-04 07:00 | NUR ---
RECEIVED PATIENT RESTING IN BED NO S/S OF DISTRESS. BED LOW, WHEELS LOCKED, SIDE RAILS X2. CALL LIGHT IN REACH WILL CONTINUE TO MONITOR PATIENT.
[2019-10-04] MEDS: INSULIN REGULAR, HUMAN 100 UNIT/1 ML 3ML VIAL SQ SCH ×4 (07:30→21:00)
--- NOTE | 2019-10-04 10:20 | NUR ---
ASSESSMENT: Spiritual concern Pt hopeful for recovery. Pt states he hopes for procedure to help his chronic illness. Intervention: Provided hospitality and empathic listening. Provided information on how to reach profile grinder technician, if needed. Outcome: Will follow as able. MARTHA MARTINEZ [facility] O: [phone]
[2019-10-04] MEDS ORDERED: PANTOPRAZOLE SOD 40 MG TABEC PO ONE (11:30)
--- NOTE | 2019-10-04 12:12 | Diagnostic Imaging Report ---
EXAM: CT Abdomen and Pelvis WITH intravenous contrast INDICATION: Nausea, vomiting COMPARISON: CT abdomen and pelvis of 09/30/2019 TECHNIQUE: Abdomen and pelvis were scanned utilizing a multidetector helical scanner from the lung base to the pubic symphysis after administration of IV contrast. Coronal and sagittal reformations were obtained. Routine protocol was performed. Scan was performed during portal venous phase. IV CONTRAST: 100mL of Isovue 370 ORAL CONTRAST: Water RADIATION DOSE: Total DLP: 402 mGy*cm Dose modulation, iterative reconstruction, and/or weight based adjustment of the mA/kV was utilized to reduce the radiation dose to as low as reasonably achievable. FINDINGS: LOWER THORAX: Normal. HEPATOBILIARY: No focal liver lesion. No biliary ductal dilation. Status post cholecystectomy. SPLEEN: No splenomegaly. PANCREAS: No focal masses or ductal dilatation. ADRENALS: No adrenal nodules. KIDNEYS/URETERS: No hydronephrosis, stones, or solid mass lesions. PELVIC ORGANS/BLADDER: Unremarkable. PERITONEUM / RETROPERITONEUM: No free air or fluid. LYMPH NODES: No lymphadenopathy. VESSELS: Mild scattered atherosclerotic calcifications of the nonaneurysmal abdominal aorta and major branches. GI TRACT: Interval resolution of previously identified bowel wall thickening of the ascending and sigmoid colon. No bowel obstruction. Normal appendix. BONES AND SOFT TISSUES: Unremarkable. IMPRESSION: Interval resolution of previously seen large bowel wall thickening. No acute findings in the abdomen or pelvis. Signed by: Tianna Asencio MD on 10/04/2019 12:09 PM
--- NOTE | 2019-10-04 20:15 | NUR ---
RECEIVED PT IN BED AOX3 BS LOW GIVEN ORANGE JUICE AND SNACK CONTINUE TO MONITOR
[2019-10-04] MEDS ORDERED: PANTOPRAZOLE 40 MG 10ML VIAL IV STA (21:36)
[2019-10-04] MEDS: PANTOPRAZOL 40MG/SOD CHL 0.9% 50 ML IV SCH (22:00)
[2019-10-04] MEDS ORDERED: SODIUM CHLORIDE 0.9% 250ML 250 ML ONE (23:19)
[2019-10-05] VITALS (9 sets, daily range): BP systolic 132–183; BP diastolic 82–106
[2019-10-05] MEDS: ONDANSETRON HCL INJ 2MG/ML 2ML 2 MG/ML VIAL IV PRN (02:59)
[2019-10-05] MEDS: MORPHINE SULFATE INJ 4 MG/ML INJ 1ML IV PRN ×4 (02:59→20:35)
[2019-10-05] MEDS: PANTOPRAZOL 40MG/SOD CHL 0.9% 50 ML IV SCH ×5 (03:00→23:40)
[2019-10-05 05:29] LABS: INR 0.96; PROTHROMBIN TIME 13.4 seconds (11.9-14.5)
--- NOTE | 2019-10-05 06:42 | NUR ---
PT RESTIN C/O PAIN AND GIVEN ORDERED PAIN MEDICATION .PT IS NPO FOR EGD.CALL LIGHT WITH IN REAH .CONTINUE TO MONITOR
[2019-10-05] MEDS: METOCLOPRAMIDE HCL 10 MG/2ML VIAL IV SCH ×4 (06:48→18:00)
--- NOTE | 2019-10-05 07:00 | NUR ---
PT RECEIVED RESTING QUIETLY. IV INFUSING. PT REMAINS NPO
[2019-10-05] MEDS: INSULIN REGULAR, HUMAN 100 UNIT/1 ML 3ML VIAL SQ SCH ×4 (07:30→20:38)
[2019-10-05] MEDS ORDERED: PANTOPRAZOLE SOD 40 MG TABEC PO SCH (07:30)
[2019-10-05 07:46] LABS: CLARITY,URINE CLEAR (CLEAR); COLOR,URINE YELLOW (YELLOW)
[2019-10-05 07:47] LABS: AMPHETAMINES SCREEN,URINE NEGATIVE (NEGATIVE); BENZODIAZEPINES SCREEN,URINE NEGATIVE (NEGATIVE); KETONES,URINE TRACE (NEGATIVE); LEUKOCYTE ESTERASE ,URINE NEGATIVE (NEGATIVE); NITRITE,URINE NEGATIVE (NEGATIVE); PHENCYCLIDINE SCREEN,URINE NEGATIVE (NEGATIVE); PROTEIN,URINE DIPSTICK NEGATIVE (NEGATIVE)
[2019-10-05 07:48] LABS: BILIRUBIN,URINE NEGATIVE (NEGATIVE); URINE UROBILINOGEN 0.2 mg/dL (0.2 - 1)
[2019-10-05 08:08] LABS: BACTERIA,URINE RARE /HPF; EPITHELIAL CELLS,URINE RARE /LPF; RBC,URINE 0-5 /HPF (0-5); WBC,URINE (MAN) 0-5 /HPF (0-5)
[2019-10-05] MEDS: METOPROLOL TARTRATE INJ 1 MG/ML VIAL IV PRN (09:04)
--- NOTE | 2019-10-05 09:20 | NUR ---
PT CO PAIN MEDICATED WITH MORPHINE ORDERED. 8/10 ON PAIN SCALE
--- NOTE | 2019-10-05 10:00 | NUR ---
BP ELEVATED EARLIER GAVE METOPROLOL; BY BETTER AT THIS TIME. 141/83
--- NOTE | 2019-10-05 10:57 | NUR ---
PT TO OR VIA STRETCHER.
--- NOTE | 2019-10-05 13:00 | NUR ---
PT BACK IN ROOM FROM [facility].
--- NOTE | 2019-10-05 18:07 | Operative Report ---
DATE OF PROCEDURE: 10/05/2019 SURGEON: Lang Torres MD PROCEDURE: EGD with pyloric channel dilatation and biopsies. INDICATIONS FOR PROCEDURE: Coffee-ground emesis, intractable nausea and vomiting. MEDICATIONS: The patient was done under MAC, please see anesthesiologist's note. PROCEDURE IN DETAIL: With the patient in the left lateral decubitus position, a flexible fiberoptic Olympus gastroscope was introduced into the esophagus under direct visualization without any difficulty. There was some patchy erythema noted in distal esophagus. The scope was then advanced with ease into the stomach traversing a small sliding hiatal hernia. Mucosa overlying the antrum and the body revealed some patchy erythema and low-grade to moderate edema, and biopsies were obtained and sent to stain for H. pylori. The pyloric channel appeared somewhat stenotic, but the scope subsequently was advanced with ease all the way to the second portion of the duodenum. Biopsies were obtained from the proximal second portion and the duodenal bulb to rule out sprue. The scope was then withdrawn back into the stomach and retroflexed, mucosa overlying the fundus and the cardia appeared to be within normal limits. The scope was then straightened out. TTS balloon dilator was then introduced into the esophagus and the pyloric channel was dilated to size 20 mm. The patient tolerated the procedure well. IMPRESSION: 1. Distal esophagitis. 2. Small sliding hiatal hernia. 3. Gastritis, biopsied, biopsies sent to stain for Helicobacter pylori. 4. Pyloric channel dilated to size 20 mm per TTS balloon dilators. 5. Rule out sprue. PLAN: Follow up histology. Continue PPI therapy. Initiate full liquid diet. Lang Torres MD [facility]/MODL /[id number] cc: Ortiz Rojo MD
--- NOTE | 2019-10-05 18:30 | NUR ---
PT RESTING QUIETLY. NO CHANGES AT THIS TIME.
--- NOTE | 2019-10-05 19:00 | NUR ---
WALKING ROUNDS PERFORMED, RECEIVED PT LAYING SEMI FOWLERS IN BED, AAOX3, RR EVEN AND NON-LABORED, ON ROOM AIR. PT REPORTS PAIN TO ABDOMEN. LEFT PT LAYING SEMI FOWLERS IN BED, BED IN LOW LOCKED POSITION, SIDE RAILS UPX2, CALL LIGHT AND PHONE WITHIN REACH.
[2019-10-06] VITALS: BP 156/94
[2019-10-06] MEDS: MORPHINE SULFATE INJ 4 MG/ML INJ 1ML IV PRN ×2 (00:35→05:08)
[2019-10-06] MEDS: METOCLOPRAMIDE HCL 10 MG/2ML VIAL IV SCH ×2 (00:35→06:12)
--- NOTE | 2019-10-06 03:33 | Progress Note ---
DATE: 10/05/2019 CONSULTING PHYSICIAN: Lang Torres MD SUBJECTIVE: The patient still complains of some right lower quadrant abdominal pain 5/10. No nausea. Reports diarrhea x4 on 10/03, but no diarrhea today. OBJECTIVE: VITAL SIGNS: Temperature 98.4, heart rate 81, blood pressure 132/82, prior to that 179/90, respirations 18, and oxygen saturation 99% on room air. GENERAL: Supine. LUNGS: Clear to auscultation. Respiratory pattern even and unlabored. HEENT: EOMI. NECK: Supple. CARDIOVASCULAR: Regular rate and rhythm without murmur. ABDOMEN: Bowel sounds positive. Soft, mildly tender in the right lower quadrant. No guarding. EXTREMITIES: No clubbing, cyanosis, edema, or signs of DVT. NEUROLOGICAL: GCS 15 nonfocal. INTEGUMENTARY: Dime-sized wound on the dorsum of the left foot with a dressing covering. LABORATORY DATA: WBCs 11.92, hemoglobin 10.7, hematocrit 34.6, platelets 272, which was collected 10/03, fingerstick blood glucose levels today 116, 262, 201, 54, and 310; then 327, 213, 203, 88, and 233. The patient underwent EGD by Dr. Torres today per preliminary results and distal esophagitis, mild. 1. Small sliding hiatal hernia. 2. Gastritis, biopsied. 3. Pyloric channel ? status post dilation with balloon. ASSESSMENT AND PLAN: 1. Right lower quadrant abdominal pain with intractable nausea and vomiting, history of diabetic gastroparesis. The patient is positive for coffee ground emesis. GI continues to follow, Reglan q.6 hours p.r.n. Zofran, morphine p.r.n. for pain control. 2. Severe diabetic gastroparesis. Case discussed with Dr. Torres. Plans are to set the patient up with [facility] for gastric pacemaker given his recidivism. Continue Reglan and Protonix. 3. Controlled type 2 diabetes mellitus. He remains on a clear liquid diet. Monitor fingerstick blood glucose levels. 4. Uncontrolled hypertension. Resume home medications. Monitor blood pressure. 5. Mild hypernatremia with dehydration. Sodium improving at 143 yesterday, creatinine 1.23 and improving. Continue IV fluids. 6. Healing left foot dorsum diabetic foot ulcer. The patient goes to [facility] on . 7. Prophylaxis. Pepcid. Time spent 35 minutes. Billing code [id number]. Dictated by Jon Smith, TRACY MD [facility]/MODL /[id number]
[2019-10-06 04:00] VITALS: BP 138/92
[2019-10-06] MEDS: PANTOPRAZOL 40MG/SOD CHL 0.9% 50 ML IV SCH (05:07)
[2019-10-06 05:22] LABS: BASOPHILS # (AUTO) 0.1 (0.0-0.1); BASOPHILS % 0.9 % (0.0-1.0); EOSINOPHILS # (AUTO) 0.2 (0.0-0.4); EOSINOPHILS % 2.2 % (0.0-6.0); HEMATOCRIT 35.5 % (38.2-49.6); HEMOGLOBIN 11.2 g/dL (14.0-18.0); LYMPHOCYTES # (AUTO) 2.5 (1.0-3.2); LYMPHOCYTES % 31.9 % (18.0-39.1); MEAN CORPUSCULAR HEMOGLOBIN 28.4 pg (28-32); MEAN CORPUSCULAR HGB CONC 31.5 g/dL (31-35); MEAN CORPUSCULAR VOLUME 89.9 fL (81-99); MONOCYTES # (AUTO) 0.6 (0.2-0.8); MONOCYTES % 7.8 % (4.4-11.3); NEUTROPHILS # (AUTO) 4.5 (2.1-6.9); NEUTROPHILS % 57.1 % (38.7-80.0); PLATELET COUNT 243 x10e3/uL (140-360); RED BLOOD COUNT 3.95 x10e6/uL (4.3-5.7); RED CELL DISTRIBUTION WIDTH 13.4 % (11.7-14.4)
[2019-10-06 05:39] LABS: ANION GAP 10.4 mmol/L (8-16); BLOOD UREA NITROGEN < 5 mg/dL (7-26); CALCIUM 8.7 mg/dL (8.4-10.2); CARBON DIOXIDE 29 mmol/L (22-29); CHLORIDE 99 mmol/L (98-107); CREATININE, SERUM 1.04 mg/dL (0.72-1.25); EST GLOMERULAR FILTRATION RATE > 60 ML/MIN (60-); GLUCOSE 202 mg/dL (74-118); POTASSIUM 3.4 mmol/L (3.5-5.1); SODIUM 135 mmol/L (136-145)
[2019-10-06 05:43] LABS: BUN/CREATININE RATIO 5 (6-25)
[2019-10-06] MEDS: INSULIN REGULAR, HUMAN 100 UNIT/1 ML 3ML VIAL SQ SCH ×2 (07:30→11:30)
[2019-10-06 08:33] VITALS: BP 148/80
[2019-10-06 08:47] VITALS: BP 148/80
[2019-10-06 08:52] VITALS: BP 148/80
[2019-10-06 11:55] VITALS: BP 180/102
[2019-10-06] MEDS: METOPROLOL TARTRATE INJ 1 MG/ML VIAL IV PRN (11:55)
--- NOTE | 2019-10-06 12:06 | Discharge Summary ---
PRIMARY CARE PHYSICIAN: Dr. Riley Rosa. CONSULTING PHYSICIAN: Dr. Lang Torres. CHIEF COMPLAINT: Intractable nausea and vomiting. HISTORY OF PRESENT ILLNESS: The patient is a 43-year-old male who was admitted with exacerbation of his diabetic gastroparesis with most recent admission on 09/22/2019. Dr. Torres is his outpatient GI physician, who has done an EGD on the patient in the past and served as his inpatient travel attendants as well. PAST MEDICAL HISTORY: Gastroparesis, diabetes mellitus (longstanding), and hypertension. PAST SURGICAL HISTORY: Cholecystectomy and left foot surgery. FAMILY HISTORY: Mother and uncles had hypertension and diabetes. SOCIAL HISTORY: Denies tobacco or alcohol. States he quit using marijuana about 2-3 weeks ago. ALLERGIES: NO KNOWN ALLERGIES. ADMITTING DIAGNOSES: 1. Right lower quadrant abdominal pain with recurrent nausea and vomiting. 2. Severe diabetic gastroparesis. 3. Controlled type 2 diabetes mellitus. 4. Uncontrolled hypertension. 5. Mild hypernatremia with dehydration. 6. Healing left foot dorsum diabetic foot ulcer, not new. DISCHARGE DIAGNOSES: 1. Right lower quadrant abdominal pain with recurrent nausea and vomiting. 2. Severe diabetic gastroparesis. 3. Controlled type 2 diabetes mellitus. 4. Uncontrolled hypertension. 5. Mild hypernatremia with dehydration. 6. Healing left foot dorsum diabetic foot ulcer, not new. HOSPITAL COURSE: The patient had the following labs on 10/02, WBCs 8.26, hemoglobin 12.3, hematocrit 39, and platelets 296. Sodium 146, potassium 3.6, chloride 106, CO2 of 29, anion gap 14.6, BUN 12, creatinine 1.33, estimated GFR greater than 60, glucose 106, AST 20, ALT 14, alkaline phosphatase 86, total bilirubin 0.4, total protein 7.4, and albumin 4.1. On 10/03, coronavirus PCR not detected. On 10/04, UDS was positive for opiates and cannabinoids. On 10/03, CT of the abdomen and pelvis showed interval resolution of previously seen large bowel wall thickening. No acute findings in the abdomen or pelvis. Today on the day of discharge, temperature 97.9, heart rate 85, respirations 16, blood pressure 148/80, and oxygen saturation 100% on room air. WBC 7.83, hemoglobin 11.2, hematocrit 35.5, and platelets 243. Sodium 135, potassium 3.4, chloride 99, CO2 of 29, anion gap 10.4, BUN less than 5, creatinine 1.04, estimated GFR greater than 60, glucose 202, and calcium 8.7. PHYSICAL EXAMINATION: LUNGS: Clear to auscultation. HEENT: EOMI. NECK: Supple. CARDIOVASCULAR: Regular rate and rhythm. No murmur. ABDOMEN: Bowel sounds positive. Soft, nontender. No guarding. No vomiting. EXTREMITIES: No clubbing, cyanosis, or edema. No signs or symptoms of DVT. NEUROLOGICAL: GCS 15. Nonfocal. INTEGUMENTARY: Dime-size wound on the dorsum of the left foot with blue dressing covering. The patient received Reglan q.6 hours scheduled, p.r.n. Zofran as well as pain control with morphine p.r.n. during his stay. Case was discussed with Dr. Torres who has set up an appointment for patient with Dr. Diez, [facility] for possible gastric pacemaker placement given his recidivism. The patient will return back to his usual diabetic regimen. Mild hyponatremia noted today with sodium 135 and mild hypokalemia with potassium 3.4. No repletion needed. The patient has been on a clear liquid diet, will return to ADA diet. The patient goes to [facility] on for wound care for the left foot dorsum diabetic foot ulcer. Activity level as tolerated. Follow up with Dr. Torres as directed. Follow up with PCP in 1-2 weeks. Dictated by Jon Smith NP MD [facility]/MODL /[id number]
--- NOTE | 2019-10-06 12:11 | NUR ---
PT ACCOMPANIED DOWN BY STAFF VIA WC TO PRIVATE AUTO.
--- NOTE | 2019-10-06 12:11 | NUR ---
PT IV D/C AFTER BP MED GIVEN EARLIER. PT REFUSES TO WAIT TO RECHECK BP; STATING HE HAS WOUND CARE APPOINTMENT AT 2 . H. IS HERE ON THE FLOOR AND AWARE OF SITUATION
== END 2019-10-06 12:14 | disposition home or self-care (01) | DRG 74 ==
LOC: ER 16:50 → ERHOLD 10-04 00:35 → MED/SURG 10-04 02:08
PROVIDERS: ADMIT Internal Medicine; ATTEND Internal Medicine
PROC: 0DB98ZX Excision of Duodenum, Via Natural or Artificial Opening Endoscopic, Diagnostic (ICD-10-PCS; principal; 2019-10-05 11:24)
PROC: 0DB78ZX Excision of Stomach, Pylorus, Via Natural or Artificial Opening Endoscopic, Diagnostic (ICD-10-PCS; 2019-10-05 11:24)
DX: E11.43 Type 2 diabetes mellitus with diabetic autonomic (poly)neuropathy (principal); E87.0 Hyperosmolality and hypernatremia; K31.84 Gastroparesis; Z79.4 Long term (current) use of insulin; I10 Essential (primary) hypertension; Z11.59 Encounter for screening for other viral diseases
CPT/HCPCS: 36415; 43233; 43239; 74177; 80048; 80053; 80307; 81001; 82948; 85025; 85610; 87635; 88305; 88312; 99284; J1817; J2270; J2405; J2765; J7030; J7050; Q9967

== ENCOUNTER 2019-10-27 13:01 | Inpatient (IN) | payer MEDICARE, OTHER ==
[~2019-10-27] VITALS: Ht 185.4 cm; Wt 83.5 kg
[2019-10-27] MEDS ORDERED: SODIUM CHLORIDE 0.9% 1000ML 1,000 ML IV STA (13:23)
[2019-10-27] MEDS ORDERED: PANTOPRAZOLE 40 MG 10ML VIAL IV STA (13:23)
[2019-10-27] MEDS ORDERED: DIPHENHYDRAMINE HCL INJ 50 MG/ML VIAL IV ONE (13:30)
[2019-10-27] MEDS ORDERED: PROMETHAZINE 25MG/ NS 50ML (IV) IV ONE (13:30)
--- NOTE | 2019-10-27 13:50 | Emergency Department Note ---
History of Present Illnes History of Present Illness History of Present Illness This is a 43 year old male hx of well known gastroparesis c/o n/v, abd pain dehydration Past Medical History Diabetes Other Medical History GASTROPARESIS Past Surgical History: Cholecystectomy Other Surgery LEFT FOOT SURGERY . Historian: Patient Arrival Mode: Car [employer] R[employer] Required: No Onset (how long ago): day(s) Radiation: Reports non-radiation Severity: moderate Duration (how long): day(s) Timing of current episode: constant Progression: worsening Relieving factors: none Exacerbating factors: none Treatments prior to arrival: none Previous service: medications given Past Medical/Family History Physician Review I have reviewed the patient's past medical and family history. Any updates have been documented here. Past Medical History Recent Fever: No Clinical Suspicion of Infectio: No New/Unexplained Change in Ment: No Past Medical History: Diabetes Other Medical History: GASTROPARESIS Past Surgical History: Cholecysctectomy Other Surgery: LEFT FOOT SURGERY Social History Smoking Cessation: Unknown if ever smoked Counseling Performed: No Any Illegal Drug Use: No Family History Family history of heart diseas: No Other Last Tetanus: UNKNOWN Any Pre-Existing Lines (PICC,: No Review of Systems Review of Systems Constitutional: Reports as per HPI EENTM: Reports no symptoms Cardiovascular: Reports no symptoms Respiratory: Reports no symptoms Gastrointestinal: Reports abdominal pain, Reports nausea, Reports vomiting Genitourinary: Reports no symptoms Musculoskeletal: Reports no symptoms Integumentary: Reports no symptoms Neurological: Reports no symptoms Psychological: Reports no symptoms Endocrine: Reports no symptoms Hematological/Lymphatic: Reports no symptoms Physical Exam Related Data Allergies: Coded Allergies: No Known Allergies (Unverified , 07/02/18) Vital signs reviewed: Yes Physical Exam CONSTITUTIONAL Constitutional: Present well-developed, Present well-nourished HENT HENT: Present normocephalic, Present atraumatic, Present oropharynx clear/moist, Present nose normal HENT L/R: Present left ext ear normal, Present right ext ear normal EYES Eyes: Reports PERRL, Reports conjunctivae normal NECK Neck: Present ROM normal PULMONARY Pulmonary: Present effort normal, Present breath sounds normal CARDIOVASCULAR Cardiovascular: Present regular rhythm, Present heart sounds normal, Present capillary refill normal, Present normal rate GASTROINTESTINAL Abdominal: Present soft, Present bowel sounds normal GENITOURINARY Genitourinary: Present exam deferred SKIN Skin: Present warm, Present dry MUSCULOSKELETAL Musculoskeletal: Present ROM normal, Present other (left foot swollen, wound dry) NEUROLOGICAL Neurological: Present alert, Present oriented x 3, Present no gross motor or sensory deficits PSYCHOLOGICAL Psychological: Present mood/affect normal, Present judgement normal Results Laboratory Lab results reviewed: Yes Laboratory comments glucose high Assessment & Plan Medical Decision Making MDM gastroparesis Reassessment Reassessment time: 15:42 Reassessment ask for pain meds, still throwing up after IV meds Assessment & Plan Final Impression: (1) Intractable nausea and vomiting (2) Hematemesis (3) Dehydration (4) Abdominal pain, acute, epigastric (5) Upper GI bleed (6) Gastroparesis Depart Disposition: ADMITTED Home Meds Active Scripts Promethazine Hcl (PROMETHAZINE HCL) 25 Mg Tablet, 25 MG PO Q6H for vomiting, #20 TAB Prov:FILIBERTO ROSENTHAL MD 09/21/19 Metoclopramide Hcl (REGLAN) 10 Mg Tablet, 1 TAB PO ACHS for 30 Days Before meals Prov:JAREK LO NP 11/25/18 Pantoprazole Sodium* (PROTONIX) 40 Mg Tablet.dr, 40 MG PO DAILY for 30 Days Prov:JAREK LO NP 11/25/18 Reported Medications Ondansetron Hcl (ONDANSETRON HCL) 4 Mg Tablet, 4 MG SL Q6H PRN for NAUSEA 07/02/18 Insulin Glargine (LANTUS 3ML PEN) 100 Units/1 Ml Inj, 15 UNITS SQ HS 07/02/18 Lisinopril (LISINOPRIL) 5 Mg Tablet, 5 MG PO DAILY 07/02/18 Insulin Aspart (NOVOLOG) 100 Units/1 Ml Inj, 8 UNITS SQ TIDWM 07/02/18 Medications in the ED Pantoprazole Sodium 40 mg NOW STAT IV ; Start 10/27/19 at 13:23; Stop 10/27/19 at 13:24; Status UNV Sodium Chloride 1,000 ml @ 0 mls/hr Q0M STAT IV ; Start 10/27/19 at 13:23; Stop 10/27/19 at 13:26; Status DC Diphenhydramine HCl 25 mg NOW ONCE IV ; Start 10/27/19 at 13:30; Stop 10/27/19 at 13:31; Status UNV Physician Attestation Provider Attestation case discussed with TRENT Salazar MD Oct 27, 2019 13:50
[2019-10-27] MEDS ORDERED: PROMETHAZINE HCL (IM) 25 MG/ML VIAL IM ONE (14:33)
[2019-10-27] MEDS ORDERED: SODIUM CHLORIDE 0.9% 1000ML 1,000 ML ONE (14:33)
[2019-10-27] MEDS ORDERED: PANTOPRAZOLE 40 MG 10ML VIAL ONE (14:33)
[2019-10-27] MEDS ORDERED: DIPHENHYDRAMINE HCL INJ 50 MG/ML VIAL ONE (14:33)
[2019-10-27] MEDS ORDERED: ENALAPRILAT IV INJ 1.25 MG/ML VIAL IV PRN (14:45)
[2019-10-27] MEDS ORDERED: ACETAMINOPHEN 325 MG TAB PO PRN (14:45)
[2019-10-27] MEDS ORDERED: INSULIN REGULAR, HUMAN 100 UNIT/1 ML 3ML VIAL SQ NR (14:45)
[2019-10-27] MEDS ORDERED: ZOLPIDEM TARTRATE 5 MG TAB PO PRN (14:45)
[2019-10-27] MEDS ORDERED: DIPHENHYDRAMINE HCL INJ 50 MG/ML VIAL IV PRN (14:45)
[2019-10-27] MEDS ORDERED: DEXTROSE 50% SYRINGE 50 ML IV PRN (14:45)
[2019-10-27 15:13] LABS: BASOPHILS # (AUTO) 0.1 (0.0-0.1); BASOPHILS % 0.7 % (0.0-1.0); EOSINOPHILS % 0.1 % (0.0-6.0); HEMATOCRIT 35.7 % (38.2-49.6); HEMOGLOBIN 11.2 g/dL (14.0-18.0); LYMPHOCYTES # (AUTO) 0.7 (1.0-3.2); LYMPHOCYTES % 10.3 % (18.0-39.1); MEAN CORPUSCULAR HEMOGLOBIN 28.2 pg (28-32); MEAN CORPUSCULAR HGB CONC 31.4 g/dL (31-35); MEAN CORPUSCULAR VOLUME 89.9 fL (81-99); MONOCYTES # (AUTO) 0.3 (0.2-0.8); MONOCYTES % 3.5 % (4.4-11.3); NEUTROPHILS # (AUTO) 6.1 (2.1-6.9); NEUTROPHILS % 85.1 % (38.7-80.0); PLATELET COUNT 226 x10e3/uL (140-360); RED BLOOD COUNT 3.97 x10e6/uL (4.3-5.7); RED CELL DISTRIBUTION WIDTH 13.1 % (11.7-14.4)
--- NOTE | 2019-10-27 15:51 | NUR ---
[facility] NOTIFED OF NEED FOR TRANSFER, ETA GIVEN 30-45 MINUTES
--- NOTE | 2019-10-27 16:07 | NUR ---
PT SLEEPING VSS TAKEN. NAD NOTED.
[2019-10-27] MEDS: INSULIN REGULAR, HUMAN 100 UNIT/1 ML 3ML VIAL SQ SCH ×2 (16:30→21:53)
[2019-10-27 17:25] VITALS: BP 155/74
[2019-10-27 17:28] VITALS: BP 155/74
[2019-10-27 17:32] VITALS: BP 155/74
[2019-10-27] MEDS: FAMOTIDINE 20 MG/2 ML VIAL IV SCH (17:51)
[2019-10-27] MEDS: MORPHINE SULFATE INJ 4 MG/ML INJ 1ML IV PRN ×2 (17:51→22:05)
[2019-10-27] MEDS: SODIUM CHLORIDE 0.9% 1000ML 1,000 ML IV SCH (17:51)
[2019-10-27] MEDS ORDERED: FUROSEMIDE INJ 10 MG/ML 4 ML VIAL ONE (18:58)
[2019-10-27 20:00] VITALS: BP 173/89
[2019-10-27 21:35] VITALS: BP 173/89
[2019-10-27 21:44] VITALS: BP 173/89
[2019-10-27] MEDS: ONDANSETRON HCL INJ 2MG/ML 2ML 2 MG/ML VIAL IV PRN (22:04)
[2019-10-28] VITALS (8 sets, daily range): BP systolic 141–184; BP diastolic 77–98
[2019-10-28] MEDS: MORPHINE SULFATE INJ 4 MG/ML INJ 1ML IV PRN (04:57)
[2019-10-28] MEDS: SODIUM CHLORIDE 0.9% 1000ML 1,000 ML IV SCH ×3 (04:57→14:14)
[2019-10-28] MEDS: ONDANSETRON HCL INJ 2MG/ML 2ML 2 MG/ML VIAL IV PRN (04:57)
[2019-10-28 05:47] LABS: ANION GAP 14.7 mmol/L (8-16); BLOOD UREA NITROGEN 17 mg/dL (7-26); BUN/CREATININE RATIO 15 (6-25); CALCIUM 8.4 mg/dL (8.4-10.2); CARBON DIOXIDE 24 mmol/L (22-29); CHLORIDE 106 mmol/L (98-107); CREATININE, SERUM 1.15 mg/dL (0.72-1.25); EST GLOMERULAR FILTRATION RATE > 60 ML/MIN (60-); GLUCOSE 246 mg/dL (74-118); POTASSIUM 3.7 mmol/L (3.5-5.1); SODIUM 141 mmol/L (136-145)
--- NOTE | 2019-10-28 07:00 | NUR ---
Patient endorsed to next shift for continuity of care.
[2019-10-28] MEDS: INSULIN REGULAR, HUMAN 100 UNIT/1 ML 3ML VIAL SQ SCH ×3 (09:01→16:30)
[2019-10-28] MEDS: FAMOTIDINE 20 MG/2 ML VIAL IV SCH (09:03)
[2019-10-28] MEDS ORDERED: MORPHINE SULFATE INJ 4 MG/ML INJ 1ML IV PRN (09:15)
[2019-10-28] MEDS ORDERED: PANTOPRAZOLE 40 MG 10ML VIAL IV SCH (09:30)
[2019-10-28] MEDS ORDERED: MORPHINE SULFATE 2 MG/ML SYR 1ML IV PRN (09:30)
[2019-10-28] MEDS: METOCLOPRAMIDE HCL 10 MG/2ML VIAL IV SCH ×2 (10:05→10:57)
[2019-10-28] MEDS ORDERED: LISINOPRIL 2.5 MG TAB PO SCH (10:30)
[2019-10-28] MEDS ORDERED: TYLENOL WITH C1 EACH PO (10:59)
--- NOTE | 2019-10-28 18:56 | Discharge Summary ---
ADMISSION DIAGNOSES: 1. Gastroparesis. 2. Hypertension. 3. Peptic ulcer disease. 4. Type 2 diabetes. DISCHARGE DIAGNOSES: 1. Gastroparesis. 2. Hypertension. 3. Peptic ulcer disease. 4. Type 2 diabetes. HISTORY: Type 2 diabetes with gastroparesis, hypertension, PUD. SURGICAL HISTORY: Cholecystectomy and left foot surgery. FAMILY HISTORY: The patient's uncle has diabetes. SOCIAL HISTORY: The patient admits to occasional weed use. HOSPITAL COURSE: A 43-year-old male with past medical history of type 2 diabetes, PUD and gastroparesis requiring frequent admissions, admits with complaints of nausea, vomiting, followed by sharp epigastric abdominal pain. On admission, the patient was started on IV Reglan, Protonix, Zofran, promethazine and a clear liquid diet. The patient tolerated diet advancement pretty quickly and will discharge home. He will follow up with primary care in 1 to 2 weeks and was previously told to follow up with Dr. Diez in the [facility] for gastric pacemaker. Dictated by Leia Kendrick NP MD [facility]/MODL /[id number]
--- OUTSIDE RECORDS SUMMARY | 2019-10-28 20:41 | XMS REPORT | Clinical Summary ---
Author Author DEMARIO [facility] Address Unknown Phone Unavailable Care Team Providers Care Sales Designer Name Role Phone Pcp, No PCP Unavailable [...] 10 MG mouth 4 tabletIndications: (four) times stomach muscle paralysis daily as and decreased function needed for from diabetes Nausea. Active pantoprazole (PROTONIX) Take 20 mg [...] (HCC); Cannabinoid hyperemesis syndrome (HCC); Hypokalemia 12/13/2018 [facility] - Encounter 12/14/2018 12/13/2018 Travel after 10/26/2018 Family History Medical History Relation Name Comments [...] METER Routine 12/13/2018 12:25 PM CDT after 10/26/2018 Results * EKG-SCANNED (12/16/2018 9:02 AM CDT) Narrative Performed At This result has an attachment that is n ot available. * POC-Glucose meter (12/14/2018 5:15 PM CDT) Only the most recent of 6 results within the time period is included. POC-Glucose Meter 266 (H)Comment: TESTED AT 70 - 110 mg/dL [facility] [address] [facility] [id number] Specimen Blood Performing Organization Address City/State/Zipcode Ph one Number [facility] [phone] [place], [place] [facility] * ECG 12 lead (12/14/2018 10:08 AM CDT) Specimen Narrative Performed At Ventricular Rate 78 BPM GE MUSE Atrial Rate 78 BPM P-R Interval 168 ms QRS Duration 80 ms Q-T Interval 350 ms QTC Calculation(Bazett) 399 ms P Derby 52 degrees R [place] -14 degrees T [place] 35 degrees Normal sinus rhythm Normal ECG No previous ECGs available Confirmed by MD MEGGAN, MARCELINO ([id number] ) on 12/14/2018 2:27:24 PM Procedure Note Interface, External Ris In - 12/14/2018 2:27 PM CDT Ventricular Rate 78 BPM Atrial Rate 78 BPM P-R Interval 168 ms QRS Duration 80 ms Q-T Interval 350 ms QTC Calculation(Bazett) 399 ms P [place] 52 degrees R [place] -14 degrees T [place] 35 degrees Normal sinus rhythm Normal ECG No previous ECGs available Confirmed by MD MEGGAN, MARCELINO ([id number]) on 12/14/2018 2:27:24 PM Performing Organization Address City/State/Zipcode Ph one Number GE MUSE * CBC with platelet count + automated diff (12/14/2018 4:58 AM CDT) Only the most recent of 2 results within the time period is included. WBC 7.5 3.5 - 10.5 K/L [facility] RBC 3.38 (L) 4.63 - 6.08 M/L [facility] Hemoglobin 9.8 (L) 13.7 - 17.5 GM/DL [facility] Hematocrit 31.1 (L) 40.1 - 51.0 % [facility] MCV 92.0 79.0 - 92.2 fL [facility] MCH 29.0 25.7 - 32.2 pg [facility] MCHC 31.5 (L) 32.3 - 36.5 GM/DL [facility] RDW 14.1 11.6 - 14.4 % [facility] Platelets 208Comment: Discordant PLT 150 - 450 K/CU MM [facility] results compared to previous [facility] results; clinical correlation required. MPV 10.4 9.4 - 12.4 fL [facility] nRBC 0 0 - 0 /100 WBC [facility] % Neutros 66 % [facility] % Lymphs 20 % [facility] % Monos 12 % [facility] % Eos 1 % [facility] % Baso 1 % [facility] # Neutros 4.92 1.78 - 5.38 K/L [facility] # Lymphs 1.46 1.32 - 3.57 K/L [facility] # Monos 0.92 (H) 0.30 - 0.82 K/L [facility] # Eos 0.10 0.04 - 0.54 K/L [facility] # Baso 0.07 0.01 - 0.08 K/L [facility] Immature 0 0 - 1 % [facility] Granulocytes-Relative [facility] Specimen Blood Performing Organization Address [facility] one Number [place] [phone] [place] [address] * Phosphorus (12/14/2018 4:58 AM CDT) Phosphorus 2.2 (L) 2.3 - 4.7 mg/dL [facility] Specimen Blood Performing Organization Address City/[facility] one Number [place] [phone] [place] [address] * Magnesium (12/14/2018 4:58 AM CDT) Magnesium 1.6 1.6 - 2.6 mg/dL [facility] Specimen Blood Performing Organization Address City/[facility] one Number [address] [facility] * Basic metabolic panel (12/14/2018 4:58 AM CDT) Only the most recent of 2 results within the time period is included. Sodium 139 136 - 145 meq/L [facility] Potassium 3.2 (L) 3.5 - 5.1 meq/L [facility] Chloride 105 98 - 107 meq/L [facility] CO2 28 22 - 29 meq/L [facility] BUN 11 7 - 21 mg/dL [facility] Creatinine 1.12 0.57 - 1.25 mg/dL [facility] Glucose 112 (H) 70 - 105 mg/dL [facility] Calcium 8.7 8.4 - 10.2 mg/dL [facility] EGFR 87Comment: ESTIMATED GFR IS mL/min/1.73 sq m [facility] NOT ACCURATE CREATININE [facility] CLEARANCE IN PREDICTING GLOMERULAR FILTRATION RATE. ESTIMATED GFR IS NOT APPLICABLE FOR DIALYSIS PATIENTS. Specimen Blood Performing Organization Address [facility] one [place] [address] [facility] * Hemoglobin A1c (12/13/2018 3:38 PM CDT) Hemoglobin A1C 8.4 (H) 4.3 - 6.1 % [facility] Specimen Blood Performing Organization Address City/[facility] one Number [place] [address] [facility] * Hepatic function panel (12/13/2018 3:38 PM CDT) Protein, Total 6.9 6.0 - 8.3 gm/dL [facility] Albumin 3.9 3.5 - 5.0 g/dL [facility] Total Bilirubin 0.5 0.2 - 1.2 mg/dL [facility] Bilirubin, Direct 0.2 0.1 - 0.5 mg/dL [facility] Alkaline Phosphatase 80 40 - 150 U/L [facility] AST 18 5 - 34 U/L [facility] ALT 15 6 - 55 U/L [facility] Specimen Blood Performing Organization Address [facility] Ph one Number [address] [facility] * Lipid panel (12/13/2018 3:38 PM CDT) Triglycerides 101 mg/dL [facility] Cholesterol 151 mg/dL [facility] HDL 38 mg/dL [facility] LDL Calculated 93 mg/dL [facility] Specimen Blood Narrative Performed At Triglyceride Reference Range: [facility] Low Risk <[facility] [id number] High Risk 200-499 Very High Risk>=500 Cholesterol Reference Range: Low Risk <200 [id number] High Risk>240 HDL Cholesterol Reference Range: Low Risk >=60 High Risk <40 LDL Cholesterol Reference Range: Optimal<100 Near [id number] Very High >=190 Performing Organization Address City/[facility] Ph one Number [address] [facility] after 10/26/2018 Insurance Payer Benefit Subscriber ID Type Phone Address Plan / Group MEDICARE MEDICARE A xxxxxxxxxxx Medicare B [id number] Advance Directives For more information, please contact: [address] [address] Date Inactivated Comments Code Status Date Activated 12/15/2018 12:01 AM Full Code 12/13/2018 10:07 AM This code status was determined by: Patient
--- OUTSIDE RECORDS SUMMARY | 2019-10-28 20:44 | XMS REPORT | Continuity of Care Document ---
Author Author [facility] t Organization [facility] Address [address] [place] [address] Phone Unavailable Care Team Providers Care Cattle Feeder Name Role Phone Chao BECKMAN PCP ISACC JAVED Attphys Unavailable STACIE FALLON, JEANNIE Attphys Unavailable Keeley CARTER Attphys Unavailable NEIL PEREZ Attphys Unavailable Dasia GIBSON, Zaina Attphys Rosa FALLON, Jyoti Sharon Attphys [phone] Rigo Mott MD Attphys [phone] ROSA MURALINATH SHARON Attphys Unavailable TAVIA GARCIA Attphys Unavailable ISACC JAVED Admphys Unavailable DAKeeley DOUGLAS Admphys Unavailable ROSA, MURALINATH SHARON Admphys Unavailable Payers Payer Name Policy Type Policy Number Effective Date Expiration Date Keeley cagle Medicare A & B [id number] 2016 00:00:00 [facility] Cdc Review [id number] [facility] MEDICAREMEDICARE A BxxxxxxxxxxxMedicare xxxxxxxxxxx [facility] Problems Condition Name Condition Details Condition Category Status Onset Date Resolution Date Last Treatment Date Treating Clinician Comments Source Gastroparesis Gastroparesis Disease Active 2018-12-13 00:00:00 [facility] Diabetic gastroparesis associated with type 2 diabetes mellitus Diabetic gastroparesis associated with type 2 diabetes mellitus Problem Active [facility] Upper gastrointestinal hemorrhage Upper GI bleed Problem Active [facility] Dehydration Dehydration Problem Active [facility] Nausea and vomiting Nausea & vomiting Problem Active [facility] Hematemesis Problem Active [facility] Acute epigastric pain Problem Active [facility] Abdominal pain Problem Active C [facility] Vomiting Problem Active [facility] Tachycardia Problem Active [facility] Hyperglycemia Problem Active [facility] Colitis Problem Active [facility] Intractable vomiting with nausea Problem Active [facility] Allergies, Adverse Reactions, Alerts Allergy Name Allergy Type Status Severity Reaction(s) Onset Date Inacti ve Date Treating Clinician Comments Source No Known Allergies DA Active U 2019-02-13 00:00:00 [facility] No Known Allergies DA Active U 2019-02-06 00:00:00 [facility] No Known Allergies DA Active U 2018-05-11 00:00:00 [facility] No Known Allergies DA Active U 2018-02-26 00:00:00 [facility] No Known Allergies DA Active U 2018-01-14 00:00:00 [facility] No Known Allergies DA Active U 2017-12-15 00:00:00 [facility] No Known Allergies DA Active U 2017-10-09 00:00:00 [facility] Family History Family Member Diagnosis Comments Start Date Stop Date Source Maternal uncle Diabetes [facility] Natural mother Diabetes [facility] Social History Social Habit Start Date Stop Date Quantity Comments Source History SDOH Alcohol Std Drinks [facility] History SDOH Alcohol Binge [facility] Sex Assigned At [facility] History SDOH Alcohol Frequency 2018-12-13 00:00:00 2018-12-13 00:00:0 0 1 [facility] Smoking Status Start Date Stop Date Source Never smoker [facility] Medications Ordered Medication Name Filled Medication Name Start Date Stop Da te Current Medication? Ordering Clinician Indication Dosage Frequency Signature (SIG) Comments Components Source Promethazine Hcl Promethazine Hcl 2019-09-21 09:25:00 Yes 25 Every 6 Hours for Vomiting [facility] Losartan Potassium Losartan Potassium 2019-08-25 13:46:00 2019-08-30 5 00:00:00 No 50 Daily [facility] Acetaminophen With Codeine (Tylenol With Codeine #3 Ta blet) 1 Each TABLET Acetaminophen With Codeine (Tylenol With Codeine #3 Tablet) 1 Each TABLET 2019-07-10 18:44:00 2019-09-22 00:00:00 No 300 Every 6 Hours as needed for Pain [facility] Promethazine Hcl Promethazine Hcl 2019-07-06 13:42:00 2019-07-10 00:00 :00 No 25 Three Times A Day [facility] promethazine (PHENERGAN) 12.5 MG tablet 00:00:00 2018-12-21 23:59:00 No 12.5mg Take 1 tablet (12.5 mg total) by mouth every 6 (six) hours as needed for Nausea for up to 7 days. [facility] insulin glargine (LANTUS) 100 unit/mL injection 2018-12-13 1 7:58:14 Yes type 2 diabetes mellitus 25U QD Inject 25 Units subcutaneously nightly Use as directed . [facility] dicyclomine (BENTYL) 10 MG capsule 2018-12-13 17:58:14 Y es 10mg Q.[id number] Take 10 mg by mouth 3 (three) times daily. [facility] metoclopramide HCl (REGLAN) 10 MG tablet 2018-12-13 17:58:14 Yes stomach muscle paralysis and decreased function from diabetes 10mg Take 10 mg by mouth 4 (four) times daily as needed for Nausea. [facility] pantoprazole (PROTONIX) 20 MG tablet 2018-12-13 17:58:14 Ye s 20mg Take 20 mg by mouth 2 (two) times daily before meals. [facility] traMADol (ULTRAM) 50 mg tablet 2018-12-13 17:58:14 Yes 50mg Q.[id number] Take 50 mg by mouth 3 (three) times daily. [facility] insulin aspart U-100 (NOVOLOG) 100 unit/mL injection 2 17:58:13 Yes type 2 diabetes mellitus 5U Inj ect 5 Units subcutaneously 3 (three) times daily before meals. [facility] Ondansetron (Ondansetron Odt) 8 Mg TAB.[facility] Ondanset calli (Ondansetron Odt) 8 Mg TAB.RAPDIS 2018-12-12 19:01:2019-07-10 00:00:00 No 4 Three Times A Day as needed for Nausea, Vomiting [facility] Promethazine Hcl (Phenergan Supp*) 25 Mg SUPP Prometha zine Hcl (Phenergan Supp*) 25 Mg SUPP 2018-12-12 19:01:00 2019-07-10 00:00:00 No 25 Three Times A Day as needed for Nausea, Vomiting [facility] Metoclopramide Hcl (Reglan) 10 Mg TABLET Metoclopramid e Hcl (Reglan) 10 Mg TABLET 2018-11-25 06:19:00 Yes 1 Before Meals And At Bedtime [facility] Pantoprazole Sodium (Protonix) 40 Mg TABLET. Pantopr azole Sodium (Protonix) 40 Mg TABLET. 2018-11-25 06:19:00 Yes 40 Daily [facility] Amlodipine Besylate (Norvasc) 10 Mg TAB Amlodipine Besylate (Norvasc) 10 Mg TAB 2018-11-25 06:19:00 2019-07-09 00:00:00 No 10 Daily [facility] Insulin Aspart (Novolog) 100 Units/1 Ml INJ Insulin As part (Novolog) 100 Units/1 Ml INJ Yes 8 Three Times Daily With Meals [facility] Insulin Glargine (Lantus 3ML Pen) 100 Units/1 Ml INJ I nsulin Glargine (Lantus 3ML Pen) 100 Units/1 Ml INJ Yes 15 Bedtime [facility] Lisinopril Lisinopril Yes 5 Daily [facility] Ondansetron Hcl Ondansetron Hcl Yes 4 Every 6 Hours as needed for Nausea [facility] Dicyclomine Hcl Dicyclomine Hcl 2019-07-10 00:00:00 No 10 Three Times A Day [facility] Promethazine Hcl Promethazine Hcl 2019-07-10 00:00:00 No 25 Three Times A Day as needed for Nausea [facility] Tramadol Hcl (Ultram 50MG*) 50 Mg TAB Tramadol Hcl (Ultram 50MG* ) 50 Mg TAB 2019-07-10 00:00:00 No 1 Three Times A Day as needed for Mild Pain (1-3) Or Fever>100.8 [facility] Glimepiride Glimepiride 2019-07-09 00:00:00 No 2 D aily [facility] Metoclopramide Hcl (Reglan) 10 Mg TABLET Metoclopramid e Hcl (Reglan) 10 Mg TABLET 2018-11-25 00:00:00 No 1 Bedtime [facility] Metoclopramide Hcl Metoclopramide Hcl 2018-11-25 00:00:00 No 10 Three Times A Day [facility] Metoclopramide Hcl (Reglan) 10 Mg TABLET Metoclopramid e Hcl (Reglan) 10 Mg TABLET 2018-11-25 00:00:00 No 1 Three Times A Day [facility] Pantoprazole Sodium (Protonix) 40 Mg TABLET. Pantchery azole Sodium (Protonix) 40 Mg TABLET. 2018-11-25 00:00:00 No 40 Daily [facility] Pantoprazole Sodium (Protonix) 40 Mg TABLET.DR Pantopr azole Sodium (Protonix) 40 Mg TABLET. 2018-11-25 00:00:00 No 40 Twice A Day [facility] Vital Signs Vital Name Observation Time Observation Value Comments Source Body Temperature 2019-10-06 11:55:00 98.0 [degF] [facility] BMI (Body Mass Index) 2019-10-06 00:13:00 25.7 kg/m2 [facility] Weight 2019-10-03 16:16:00 195 [lb_av] [facility] Weight 2019-09-30 07:59:00 195 [lb_av] [facility] BMI (Body Mass Index) 2019-09-30 07:59:00 25.7 kg/m2 [facility] Body Temperature 2019-09-29 23:05:00 99.3 [degF] [facility] Weight 2019-09-29 20:31:00 195 [lb_av] [facility] BMI (Body Mass Index) 2019-09-29 20:31:00 25.7 kg/m2 [facility] Body Temperature 2019-09-24 07:56:00 97.9 [degF] [facility] BMI (Body Mass Index) 2019-09-24 00:04:00 25.7 kg/m2 [facility] Weight 2019-09-22 07:12:00 195 [lb_av] [facility] Weight 2019-09-21 07:05:00 193 [lb_av] [facility] BMI (Body Mass Index) 2019-09-21 07:05:00 25.5 kg/m2 [facility] Body Temperature 2019-09-20 23:35:00 97.7 [degF] [facility] Weight 2019-09-20 21:36:00 193 [lb_av] [facility] BMI (Body Mass Index) 2019-09-20 21:36:00 25.5 kg/m2 [facility] Weight 2019-08-23 17:53:00 195 [lb_av] [facility] BMI (Body Mass Index) 2019-08-23 17:53:00 25.7 kg/m2 [facility] Body Temperature 2019-07-24 12:23:00 97.6 [degF] [facility] Systolic blood pressure 2018-12-14 15:44:00 160 mm[Hg] [facility] Diastolic blood pressure 2018-12-14 15:44:00 82 mm[Hg] [facility] Heart rate 2018-12-14 15:44:00 69 /min [facility] Body temperature 2018-12-14 15:44:00 37.44 Sarai [facility] Respiratory rate 2018-12-14 15:44:00 18 /min [facility] Oxygen saturation in Arterial blood by Pulse oximetry 12-14 15:44:00 97 [facility] Measured 2018-12-13 10:20:00 86.274 kg [facility] Procedures Procedure Date / Time Performed Performing Clinician [facility] e Computed tomography of abdomen and pelvis with contrast 00:00:00 [facility] Computed tomography of abdomen and pelvis with contrast 00:00:00 [facility] EMERGENCY DEPT VISIT 2019-09-21 00:00:00 [facility] EMERGENCY DEPT VISIT 2019-09-20 00:00:00 [facility] REPORT OF PROCEDURE - ENDOSCOPY SCAN 2018-12-16 09:02:06 Pro vider, Default Scanning [facility] POCT-GLUCOSE METER 2018-12-14 17:15:00 Shant Mott [facility] POCT-GLUCOSE METER 2018-12-14 12:04:00 Shant Mott [facility] ECG 12-LEAD 2018-12-14 10:08:16 Shant Mott [facility] POCT-GLUCOSE METER 2018-12-14 07:43:00 Tiera Shant Herr henok [facility] BASIC METABOLIC PANEL (7) 2018-12-14 04:58:00 Gadicherla, Sharon Muralinath [facility] PHOSPHORUS 2018-12-14 04:58:00 Gadicherla, Sharon Muralinath [facility] MAGNESIUM 2018-12-14 04:58:00 Gadicherla, Sharon Muralinath [facility] CBC W/PLT COUNT & AUTO DIFFERENTIAL 2018-12-14 04:58:00 Jared cherla, Sharon Muralinath [facility] POCT-GLUCOSE METER 2018-12-13 21:09:00 Gadicherla, Sharon Muralin [facility] POCT-GLUCOSE METER 2018-12-13 15:54:00 Gadicherla, Sharon Muralin [facility] BASIC METABOLIC PANEL (7) 2018-12-13 15:38:00 Gadicherla, Sharon Muralinath [facility] HEPATIC FUNCTION PANEL 2018-12-13 15:38:00 Gadicherla, Sharon Maureen alinath [facility] HEMOGLOBIN A1C 2018-12-13 15:38:00 [facility] LIP[facility] 2018-12-13 15:38:00 Gadicherla, Sharon Muralinath [facility] CBC W/PLT COUNT & AUTO DIFFERENTIAL 2018-12-13 15:38:00 Jared cherla, Sharon Muralinath [facility] POCT-GLUCOSE METER 2018-12-13 12:25:00 Gadicherla, Sharon Muralin [facility] Plan of Care Planned Activity Planned Date Details Comments Source Instructions Marijuana Abuse [facility] Encounters Start Date/Time End Date/Time Encounter Type Admission Type Attendi [facility] Care Department Encounter ID Source 2019-10-04 00:35:00 2019-10-06 12:14:00 Discharged Inpatient 1 ISACC JAVED [facility] [id number] [facility] 2019-09-30 08:15:00 2019-09-30 14:10:00 Departed Emergency Room [address] [facility] [id number] JENNYFER I [facility] 2019-09-29 20:40:00 2019-09-29 23:05:[address] [facility] [id number] [facility] 2019-09-22 09:41:00 2019-09-24 08:22:00 Discharged Inpatient [address] [facility] [id number] [facility] 2019-09-21 07:02:00 2019-09-21 11:05:[address] [facility] [id number] [facility] 2019-09-20 20:47:00 2019-09-20 23:35:[address] [facility] [id number] [facility] 2019-08-24 08:10:00 2019-08-25 14:00:00 Discharged Inpatient (obs) [facility] [id number] [facility] 2019-08-23 17:24:00 2019-08-23 19:35:[address] [facility] [id number] [facility] 2019-07-23 06:38:00 2019-07-24 13:59:00 Discharged Inpatient [address] [facility] [id number] [facility] 2019-07-09 15:58:00 2019-07-10 18:57:00 Discharged Inpatient (obs) [facility] [id number] [facility] 2019-07-06 11:09:00 2019-07-06 14:11:[address] [facility] [id number] [facility] 2019-05-31 00:00:00 2019-05-31 00:00:00 Transition of Care Zaina Forman [id number] 2018-12-13 06:33:00 2018-12-13 08:35:[address] [facility] [id number] [facility] 2018-12-12 17:07:00 2018-12-12 19:35:[address] [facility] [id number] [facility] 2018-11-22 18:24:00 2018-11-25 16:05:00 Discharged Inpatient [address] [facility] [id number] [facility] 2018-09-28 12:15:00 2018-09-28 16:32:00 Departed Emergency Room [facility] [id number] [facility] 2018-09-20 08:55:00 2018-09-20 08:55:00 Registered Clinic 3 TAVIA GARCIA [facility] [id number] [facility] 2018-08-10 13:35:00 2018-08-10 17:00:00 Departed Emergency Room [facility] [id number] [facility] 2018-07-05 11:53:00 2018-07-07 08:40:00 Discharged Inpatient [facility] [id number] [facility] 2018-06-23 07:38:00 2018-06-23 07:38:00 Registered Clinic 3 TAVIA GARCIA [facility] [id number] [facility] Results Test Description Test Time Test Comments Results Result Comments Source Blood leukocytes automated count (number/volume) 2019-10-06 05:15:00 Test Item White Blood Count (test code = 6690-2) 7.83 4.8-10.8 [facility] count (number/volume)2019-10-06 05:15:00* Test Item Value Reference Range Interpretation Comments Red Blood Count (test code = 789-8) 3.95 4.3-5.7 [facility] hemoglobin measurement (moles/volume)2019-10-06 05:15:00* Test Item Value Reference Range Interpretation Comments Hemoglobin (test code = 58295-2) 11.2 14.0-18.0 [facility] blood hematocrit (volume fraction)2019-10-06 05:15:00* Test Item Value Reference Range Interpretation Comments Hematocrit (test code = 4544-3) 35.5 38.2-49.6 [facility] erythrocyte mean corpuscular [id number] 05:15:00* Test Item Value Reference Range Interpretation Comments Mean Corpuscular Volume (test code = 787-2) 89.9 81-99 [facility] eryth[facility] mean corpuscular hemoglobin (mass per erythrocyte)2019-10-06 05:15:00* Test Item Value Reference Range Interpretation Comments Mean Corpuscular Hemoglobin (test code = 785-6) 28.4 28-32 [facility] erythrocyte mean corpuscular hemoglobin concentration measurement (mass/volume)2019-10-06 05:15:00* Test Item Value Reference Range Interpretation Comments Mean Corpuscular Hemoglobin Concent (test code = 786-4) 31.5 31-35 [facility] CampusRDW [id number] 05:15:00* Test Item Value Reference Range Interpretation Comments Red Cell Distribution Width (test code = 20702-8) 13.4 11.7 -14.4 [facility] platelet count (count/volume)2019-10-06 05:15:00* Test Item Value Reference Range Interpretation Comments Platelet Count (test code = 777-3) 243 140-360 [facility] blood segmented neutrophil count as percentage of total [id number] 05:15:00* Test Item Value Reference Range Interpretation Comments Neutrophils (%) (Auto) (test code = 95760-1) 57.1 38.7-80.0 [facility] lymphocyte count as percentage ot total [id number] 05:15:00* Test Item Value Reference Range Interpretation Comments Lymphocytes (%) (Auto) (test code = 736-9) 31.9 18.0-39.1 [facility] blood monocyte count as percentage of total [id number] 05:15:00* Test Item Value Reference Range Interpretation Comments Monocytes (%) (Auto) (test code = 5905-5) 7.8 4.4-11.3 [facility] blood eosinophil count as percentage of total [id number] 05:15:00* Test Item Value Reference Range Interpretation Comments Eosinophils (%) (Auto) (test code = 713-8) 2.2 0.0-6.0 [facility] blood basophil count as percentage of total [id number] 05:15:00* Test Item Value Reference Range Interpretation Comments Basophils (%) (Auto) (test code = 706-2) 0.9 0.0-1.0 [facility] CampusFluoroscopic procedure less than one hour [id number] 05:15:00* Test Item Value Reference Range Interpretation Comments IM GRANULOCYTES % (test code = IM GRANULOCYTES %) 0.1 0.0- 1.0 [facility] neutrophil count 2019-10-06 05:15:00* Test Item Value Reference Range Interpretation Comments Neutrophils # (Auto) (test code = 751-8) 4.5 2.1-6.9 [facility] lymphocytes count (number/volume) 2019-10-06 05:15:00* Test Item Value Reference Range Interpretation Comments Lymphocytes # (Auto) (test code = 73242-3) 2.5 1.0-3.2 [facility] monocytes automated count (number/volume)2019-10-06 05:15:00* Test Item Value Reference Range Interpretation Comments Monocytes # (Auto) (test code = 742-7) 0.6 0.2-0.8 [facility] blood eosinophil count 2019-10-06 05:15:00* Test Item Value Reference Range Interpretation Comments Eosinophils # (Auto) (test code = 711-2) 0.2 0.0-0.4 [facility] blood basophil count (count/volume)2019-10-06 05:15:00* Test Item Value Reference Range Interpretation Comments Basophils # (Auto) (test code = 704-7) 0.1 0.0-0.1 [facility] CampusFluoroscopic procedure less than one hour [id number] 05:15:00* Test Item Value Reference Range Interpretation Comments Absolute Immature Granulocyte (auto (zeenat t code = Absolute Immature Granulocyte (auto) 0.01 0-0.1 [facility] sodium measurement (moles/volume)2019-10-06 05:15:00* Test Item Value Reference Range Interpretation Comments Sodium Level (test code = 2951-2) 135 136-145 [facility] plasma potassium measurement (moles/volume)2019-10-06 05:15:00* Test Item Value Reference Range Interpretation Comments Potassium Level (test code = 2823-3) 3.4 3.5-5.1 [facility] plasma chloride measurement (moles/volume)2019-10-06 05:15:00* Test Item Value Reference Range Interpretation Comments Chloride Level (test code = 2075-0) 99 98-107 [facility] or plasma carbon dioxide, total measurement (moles/volume)2019-10-06 05:15:00* Test Item Value Reference Range Interpretation Comments Carbon Dioxide Level (test code = 2028-9) 29 22-29 [facility] or plasma anion [id number] 05:15:00* Test Item Value Reference Range Interpretation Comments Anion Gap (test code = 76758-1) 10.4 8-16 [facility] or plasma urea nitrogen measurement (mass/volume)2019-10-06 05:15:00* Test Item Value Reference Range Interpretation Comments Blood Urea Nitrogen (test code = 3094-0) < 5 7-26 [facility] or plasma creatinine measurement (mass/volume)2019-10-06 05:15:00* Test Item Value Reference Range Interpretation Comments Creatinine (test code = 2160-0) 1.04 0.72-1.25 [facility] or plasma urea nitrogen/creatinine mass ckkud8653-86-33 05:15:00* Test Item Value Reference Range Interpretation Comments BUN/Creatinine Ratio (test code = 3097-3) 5 6-25 [facility] CampusEstimated glomerular filtration rate (GFR) vfnxbstowbyyc8636-01-08 05:15:00* Test Item Value Reference Range Interpretation Comments Estimat Glomerular Filtration Rate (test code = 094212435) > 60 >60 Ranges were taken from the National Kidney Disease Education Program and the [facility] literature.Reference ranges:60 or greater: Dyfcmk21-85 ( for 3 consecutive months): Chronic kidney disease 15 or less: Kidney failureThe [facility]als [facility] CampusGlucose sqziojdtbxo0900-79-51 05:15:00* Test Item Value Reference Range Interpretation Comments Glucose Level (test code = XCW7836) 202 74-118 [facility] or plasma calcium measurement (mass/volume)2019-10-06 05:15:00* Test Item Value Reference Range Interpretation Comments Calcium Level (test code = 89070-3) 8.7 8.4-10.2 [facility] CampusCapillary blood glucose measurement by glucometer (mass/volume)2019-10-05 19:48:00* Test Item Value Reference Range Interpretation Comments Bedside Glucose (test code = 51813-0) 233 70-120 Meter ID: [id number] [facility]inteUrine color yigusdyfwiwtq0993-49-55 06:00:00* Test Item Value Reference Range Interpretation Comments Urine Color (test code = 5778-6) YELLOW YELLOW [facility] CampusUrine hmynpji9482-56-99 06:00:00* Test Item Value Reference Range Interpretation Comments Urine Clarity (test code = 50618-5) CLEAR CLEAR [facility] Pasopecific gravity of Urine by Test strip 2019-10-05 06:00:00* Test Item Value Reference Range Interpretation Comments Urine Specific Bowman (test code = 5811-5) 1.020 1.010-1.02 5 [facility] CampusUrine pH measurement by automated test qmvoy7409-58-72 06:00:00* Test Item Value Reference Range Interpretation Comments Urine pH (test code = 40934-7) 7.5 5-7 [facility] CampusUrine leukocyte esterase detection by ajapxyvs7878-50-56 06:00:00* Test Item Value Reference Range Interpretation Comments Urine Leukocyte Esterase (test code = 5799-2) NEGATIVE NEGATIVE [facility] CampusUrine nitrite yjdidtvyi9440-09-23 06:00:00* Test Item Value Reference Range Interpretation Comments Urine Nitrite (test code = 72627-2) NEGATIVE NEGATIVE [facility] CampusUrine protein measurement by test strip (mass/volume)2019-10-05 06:00:00* Test Item Value Reference Range Interpretation Comments Urine Protein (test code = 5804-0) NEGATIVE NEGATIVE [facility] CampusUrine glucose ulmpholvr8903-75-62 06:00:00* Test Item Value Reference Range Interpretation Comments Urine Glucose (UA) (test code = 2349-9) 2+ NEGATIVE [facility] CampusUrine ketones detection by automated test aqxje4980-00-72 06:00:00* Test Item Value Reference Range Interpretation Comments Urine Ketones (test code = 99468-8) TRACE NEGATIVE [facility] CampusUrine opiates screening slhd0542-89-74 06:00:00* Test Item Value Reference Range Interpretation Comments Urine Opiates Screen (test code = 69619-7) POSITIVE NEGATIVE This test provides only a screen. Positive results should be repeated by a confi rmatory test.[facility] CampusBarbiturates screen, urine 2019-10-05 06:00:00* Test Item Value Reference Range Interpretation Comments Urine Barbiturates Screen (test code = 096563128) NEGATIVE NEGA TIVE [facility] CampusUrine phencyclidine detection by screening bvxkol6587-45-15 06:00:00* Test Item Value Reference Range Interpretation Comments Urine Phencyclidine Screen (test code = 24957-0) NEGATIVE NEGAT GILSON [facility] CampusUrine amphetamines detection by screen method > 1000 ng/mD6200-86-22 06:00:00* Test Item Value Reference Range Interpretation Comments Urine Amphetamines Screen (test code = 45880-9) NEGATIVE NEGATI VE [facility] CampusFluoroscopic procedure less than one hour kuziykum4306-21-87 06:00:00* Test Item Value Reference Range Interpretation Comments Urine Methamphetamines Screen (test code = Urine Metha mphetamines Screen) NEGATIVE NEGATIVE [facility] CampusUrine benzodiazepines detection by screening rfofnz9389-84-95 06:00:00* Test Item Value Reference Range Interpretation Comments Urine Benzodiazepines Screen (test code = 01334-8) NEGATIVE NEG ATIVE [facility] CampusUrine cocaine measurement (mass/volume) 2019-10-05 06:00:00* Test Item Value Reference Range Interpretation Comments Urine Cocaine Screen (test code = 3398-5) NEGATIVE NEGATIVE [facility] CampusUrine cannabinoids detection by screening ozwdhz9125-58-73 06:00:00* Test Item Value Reference Range Interpretation Comments Urine Cannabinoids Screen (test code = 00702-9) POSITIVE NEGATI VE This test provides only a screen. Positive results should be repeated by a confi rmatory test.[facility] CampusUrine methadone screen 2019-10-05 06:00:00* Test Item Value Reference Range Interpretation Comments Urine Methadone Screen (test code = 45307-0) NEGATIVE NEGATIVE THESE RESULTS ARE FOR MEDICAL TREATMENT ONLYTHIS REPORT CONTAINS UNCONFIR MED SCREENING RESULTS*POSITIVE RESULTS WILL BE CONFIRMED BY REFERENCE LAB UPON R EQUEST CUT-OFFDRUG CLASS CONCENTRATION ng/mLAmphetamines 1000Methamphetamines 1000Cocaine Metabolite 300Opiate 300Phencyc lidine 25Cannabinoid 50Barbiturates 300Benzodiazepine 300Methadone 300[facility] PointeUrine urobilinogen measurement by test strip (mass/volume)2019-10-05 06:00:00* Test Item Value Reference Range Interpretation Comments Urine Urobilinogen (test code = 46430-7) 0.2 0.2-1 [facility] CampusUrine total bilirubin measurement (mass/volume)2019-10-05 06:00:00* Test Item Value Reference Range Interpretation Comments Urine Bilirubin (test code = 1978-6) NEGATIVE NEGATIVE [facility] CampusUrine erythrocytes qzsimrlwz4314-88-18 06:00:00* Test Item Value Reference Range Interpretation Comments Urine Blood (test code = 70216-8) TRACE NEGATIVE [facility] CampusAutomated urine sediment leukocyte count by microscopy (number/high power field)2019-10-05 06:00:00* Test Item Value Reference Range Interpretation Comments Urine WBC (test code = 5821-4) 0-5 0-5 [facility] CampusErythrocytes detection in urine sediment by light hebunheehg9055-19-37 06:00:00* Test Item Value Reference Range Interpretation Comments Urine RBC (test code = 01646-6) 0-5 0-5 [facility] CampusBacteria detection in urine sediment by light fpjirevxmt5240-01-16 06:00:00* Test Item Value Reference Range Interpretation Comments Urine Bacteria (test code = 00823-3) RARE NONE [facility] CampusEpithelial cells detection in urine sediment by light artbawnhuo8093-53-97 06:00:00* Test Item Value Reference Range Interpretation Comments Urine Epithelial Cells (test code = 63911-7) RARE NONE [facility] CampusProthrombin time (PT) in platelet poor plasma by coagulation ynwcn8932-25-58 05:08:00* Test Item Value Reference Range Interpretation Comments Prothrombin Time (test code = 5902-2) 13.4 11.9-14.5 [facility] CampusINR in Platelet poor plasma by Coagulation ruryi5180-14-59 05:08:00* Test Item Value Reference Range Interpretation Comments Prothromb Time International Ratio (test code = 6301-6) 0.96 Oral Anticoagulant Therapy INR Values:1. Low Intensity Therapy 1.5 - 2.02 . Moderate Intensity Therapy 2.0 - 3.03. High Intensity Therapy(1) 2.5 - 3. 54. High Intensity Therapy(2) 3.0 - 4.05. Panic Value INR > 5.0 [facility] CampusCT ABDOMEN/PELVIS [id number] 12:03:00 [facility] [address] [address] Patient Name: BREE LINDSAY MR #: [id number] : 1975 Age/Sex: 43/M Req #: [id number] Adm Physician: ISACC JAVED MD Ordered by: LU SADLER DO Rep ort #: [id number] Location: MED/SURG Room/B ed: 115-1 Procedure: [id number] CT/CT ABDOMEN/ PELVIS W Exam Date: 10/04/19 Exam Time: 1148 REPORT STATUS: Signed EXAM: CT Abdomen and Pelvis WITH intravenous contrast INDICATION: Nausea, vomiting CO MPARISON: CT abdomen and pelvis of 09/30/2019 TECHNIQUE: Abdomen and pelvis w ere scanned utilizing a multidetector helical scanner from the lung base to th e pubic symphysis after administration of IV contrast. Coronal and sagittal re formations were obtained. Routine protocol was performed. Scan was performed d uring portal venous phase. IV CONTRAST: 100mL of Isovue 370 ORAL CON TRAST: Water RADIATION DOSE: Total DLP: 402 mGy*cm Dose modulation, iterative reconstruction, and/or weight based adjustment of the mA/kV was uti lized to reduce the radiation dose to as low as reasonably achievable. F INDINGS: LOWER THORAX: Normal. HEPATOBILIARY: No focal liver lesion. No b iliary ductal dilation. Status post cholecystectomy. SPLEEN: No splenomeg cristiana. PANCREAS: No focal masses or ductal dilatation. ADRENALS: No adre nal nodules. KIDNEYS/URETERS: No hydronephrosis, stones, or solid mass lesions . PELVIC ORGANS/BLADDER: Unremarkable. PERITONEUM / RETROPERITONEUM: No f ree air or fluid. LYMPH NODES: No lymphadenopathy. VESSELS: Mild scattered a therosclerotic calcifications of the nonaneurysmal abdominal aorta and major b ranches. GI TRACT: Interval resolution of previously identified bowel wall thickening of the ascending and sigmoid colon. No bowel obstruction. Normal ap pendix. BONES AND SOFT TISSUES: Unremarkable. IMPRESSION: Interval resolution of previously seen large bowel wall thickening. No acute findings i n the abdomen or pelvis. Signed by: Alexander Madsen MD on 10/04/2019 12:09 PM Dictated By: ALEXANDER MADSEN MD [id number] COPY TO: LU SADLER DO Serum or plasma total bilirubin measurement (mass/volume)2019-10-04 06:25:00* Test Item Value Reference Range Interpretation Comments Total Bilirubin (test code = 1975-2) 0.4 0.2-1.2 [facility] CampusFluoroscopic procedure less than one hour txczdvui8897-04-30 06:25:00* Test Item Value Reference Range Interpretation Comments Aspartate Amino Transf (AST/SGOT) (test code = Aspartate Amino Transf (AST/SGOT)) 20 5-34 [facility] or plasma alanine aminotransferase measurement (enzymatic activity/volume)2019-10-04 06:25:00* Test Item Value Reference Range Interpretation Comments Alanine Aminotransferase (ALT/SGPT) (test code = 1742-6) 15 0-55 [facility] Pasoerum or plasma protein measurement (mass/volume)2019-10-04 06:25:00* Test Item Value Reference Range Interpretation Comments Total Protein (test code = 2885-2) 7.2 6.5-8.1 [facility] Pasoerum or plasma albumin measurement (mass/volume)2019-10-04 06:25:00* Test Item Value Reference Range Interpretation Comments Albumin (test code = 1751-7) 3.9 3.5-5.0 [facility] CampusPlasma globulin measurement (mass/volume) 2019-10-04 06:25:00* Test Item Value Reference Range Interpretation Comments Globulin (test code = 49381-5) 3.3 2.3-3.5 [facility] Pasoerum or plasma albumin/globulin mass bpmpp1034-37-45 06:25:00* Test Item Value Reference Range Interpretation Comments Albumin/Globulin Ratio (test code = 1759-0) 1.2 0.8-2.0 [facility]er[facility] or plasma alkaline phosphatase measurement (enzymatic activity/volume)2019-10-04 06:25:00* Test Item Value Reference Range Interpretation Comments Alkaline Phosphatase (test code = 6768-6) 90 40-150 [facility] CampusFluoroscopic procedure less than one hour jijywgee9715-44-17 01:50:00* Test Item Value Reference Range Interpretation Comments Coronavirus (PCR) (test code = Coronavirus (PCR)) NOT DETECTED NOTD ETECTED SARS-COV2/RT-PCRNegative results do not preclude SARS-CoV-2 infection and should not be used as the sole basis for patient management decisions. Negative result s must be combined with clinical observations, patient history, and epidemiologi florentino information. A false negative result may occur if a specimen is improperly c ollected, transported or handled.The limit of detection for this assay is 250 co pies/mLThe SARS-CoV-2 test is a rapid, real-time RT-PCR test intended for the qu alitative detection of nucleic acid from SARS-CoV-2 in nasopharyngeal swab speci men collected from individuals suspected of COVID-19 by their healthcare provide r. This test has not been Food and Drug Administration (FDA) cleared or approved and has been authorized by FDA under an Emergency Use Authorization (EUA). This EUA will be effective until the declaration that circumstances exist justifying the authorization of the emergency use of in vitro diagnostic test for detectio n and or diagnosis of COVID-19 is terminated under section 564(b) of the Act, or the the EUA is revoked under 564(g) of the ACT.Testing performed by [facility] [place] [id number] [place], [place] [address]CT ABDOMEN/PELVIS [id number] 12:40:00 [facility] [address] [address] Patient Name: BREE LINDSAY MR #: [id number] : 1975 Age/Sex: 43/M Req #: [id number] Adm Physician: Ordered by: STACIE FALLON, JEANNIE FALLON Report #: [id number] Location: [facility] o/Bed: Procedure: [id number] CT/CT ABD OMEN/PELVIS W Exam Date: 09/30/19 Exam Time: 1140 REPORT STATUS: Signed EXAM: CT Abd omen and Pelvis WITH contrast INDICATION: abd pain n/v COM PARISON: Chest radiograph 09/30/2019, KUB 09/22/[address] abdomen and pelvis TECHNIQUE: Abdomen and pelvis were scanned utilizing a multidetector h elical scanner from the lung base to the pubic symphysis after administration of IV contrast. Coronal and sagittal reformations were obtained. Routine susan col was performed. Scan was performed when during portal venous phase. IV CONTRAST: 100 mL of Isovue-370 ORAL CONTRAST: None RADIATION DOSE: Total DLP: 711.4 mGy*cm Estimated effect gilson dose: (DLP x 0.015 x size factor) mSv COMPLICATIONS: None FINDINGS: LINES and TUBES: None. LOWER THORAX: Unremarkable. Previou sly noted reticular opacities in both lung bases likely represented poor inspi ratory subsegmental atelectasis. Specifically, no findings to suggest viral pn eumonia in the visualized lung bases. HEPATOBILIARY: No focal hepati c lesions. No biliary ductal dilation. GALLBLADDER: Cholecystectomy. SPLEEN: No splenomegaly. PANCREAS: No focal masses or ductal dilatation. ADRENALS: No adrenal nodules KIDNEYS/URETERS: Kidneys enhance sym metrically. No hydronephrosis. No cystic or solid mass lesions. No stones. GI TRACT: The stomach is partially collapsed but is associated with diffuse circumferential wall thickening and a small hiatal hernia, unchanged since p rior exam. Worsening circumferential wall thickening of the ascending and sadler sverse colon. There appears to be also worsening circumferential wall thickeni ng of the distal sigmoid and rectum. Minimal fat stranding surrounding the dis erica sigmoid colon and rectum. There is also mild haziness diffusely in the mes enteric surrounding the ascending and descending colon. No fluid collections o r abscess. Moderate amount of retained stones. No bowel obstruction. Appendix is normal. PELVIC ORGANS/BLADDER: Unremarkable. LYMPH NODES: No lympha denopathy. VESSELS: Mild scattered atherosclerotic calcifications of the ab dominal aorta without aneurysm. PERITONEUM / RETROPERITONEUM: No free air or fluid. BONES: Unremarkable. SOFT TISSUES: Unremarkable. IMPRESSION: Worsening colitis mainly involving the ascending colon, di stal sigmoid, and rectum. No pericolonic abscess or drainable fluid collection s. No bowel obstruction. Signed by: Dr. Maggie Bryan M.D. on 09/30/2019 12:47 PM Dictated By: MAGGIE BRYAN MD [employer] Signed By: MAGGIE BRYAN MD on 09/30/19 124 Transcribed By: SULAIMAN REY on 09/30/19 1247 COPY TO: JEANNIE QUINONES Prothrombin time (PT) in platelet poor plasma by coagulation oybuy4595-45-06 09:55:00* Test Item Value Reference Range Interpretation Comments Prothrombin Time (test code = 5902-2) 13.3 11.9-14.5 [facility] CampusINR in Platelet poor plasma by Coagulation fhswy9639-86-67 09:55:00* Test Item Value Reference Range Interpretation Comments Prothromb Time International Ratio (test code = 6301-6) 0.96 Oral Anticoagulant Therapy INR Values:1. Low Intensity Therapy 1.5 - 2.02 . Moderate Intensity Therapy 2.0 - 3.03. High Intensity Therapy(1) 2.5 - 3. 54. High Intensity Therapy(2) 3.0 - 4.05. Panic Value INR > 5.0 [facility] CampusActivated partial thromboplastin time (aPTT) in platelet poor plasma by coagulation pabmk8393-86-74 09:55:00* Test Item Value Reference Range Interpretation Comments Activated Partial Thromboplast Time (test code = 73363-2) 26.1 23.8-35.5 [facility] Pasoerum or plasma sodium measurement (moles/volume)2019-09-30 09:55:00* Test Item Value Reference Range Interpretation Comments Sodium Level (test code = 2951-2) 142 136-145 [facility] Pasoerum or plasma potassium measurement (moles/volume)2019-09-30 09:55:00* Test Item Value Reference Range Interpretation Comments Potassium Level (test code = 2823-3) 3.9 3.5-5.1 [facility] Pasoerum or plasma chloride measurement (moles/volume)2019-09-30 09:55:00* Test Item Value Reference Range Interpretation Comments Chloride Level (test code = 2075-0) 103 98-107 [facility] Pasoerum or plasma carbon dioxide, total measurement (moles/volume)2019-09-30 09:55:00* Test Item Value Reference Range Interpretation Comments Carbon Dioxide Level (test code = 2028-9) 30 22-29 [facility] Pasoerum or plasma anion aki2308-00-24 09:55:00* Test Item Value Reference Range Interpretation Comments Anion Gap (test code = 89106-5) 12.9 8-16 [facility] or plasma urea nitrogen measurement (mass/volume)2019-09-30 09:55:00* Test Item Value Reference Range Interpretation Comments Blood Urea Nitrogen (test code = 3094-0) 13 7-26 [facility]erum or plasma creatinine measurement (mass/volume)2019-09-30 09:55:00* Test Item Value Reference Range Interpretation Comments Creatinine (test code = 2160-0) 1.18 0.72-1.25 [facility] Paso[facility]um or plasma urea nitrogen/creatinine mass putac7005-73-93 09:55:00* Test Item Value Reference Range Interpretation Comments BUN/Creatinine Ratio (test code = 3097-3) 11 6-25 [facility] CampusEstimated glomerular filtration rate (GFR) bvafnwdxoizga7965-62-50 09:55:00* Test Item Value Reference Range Interpretation Comments Estimat Glomerular Filtration Rate (test code = 775211983) > 60 >60 Ranges were taken from the National Kidney Disease Education Program and the [facility] Foundation literature.Reference ranges:60 or greater: Ewloet47-67 ( for 3 consecutive months): Chronic kidney disease 15 or less: Kidney failureThe Hospitals of Providence [facility] City CampusGlucose nkmreitrgsn8406-54-93 09:55:00* Test Item Value Reference Range Interpretation Comments Glucose Level (test code = QOU9130) 328 74-118 [facility] or plasma calcium measurement (mass/volume)2019-09-30 09:55:00* Test Item Value Reference Range Interpretation Comments Calcium Level (test code = 41303-2) 8.8 8.4-10.2 [facility] CampusFluoroscopic procedure less than one hour wdistcqv9961-57-63 09:55:00* Test Item Value Reference Range Interpretation Comments Lactic Acid Level (test code = Lactic Acid Level) 1.0 0.5- 2.0 [facility] or plasma total bilirubin measurement (mass/volume)2019-09-30 09:55:00* Test Item Value Reference Range Interpretation Comments Total Bilirubin (test code = 1975-2) 0.5 0.2-1.2 [facility] CampusFluoroscopic procedure less than one hour rmeyvvrv7912-45-27 09:55:00* Test Item Value Reference Range Interpretation Comments Aspartate Amino Transf (AST/SGOT) (test code = Aspartate Amino Transf (AST/SGOT)) 16 5-34 [facility] Pasoerum or plasma alanine aminotransferase measurement (enzymatic activity/volume)2019-09-30 09:55:00* Test Item Value Reference Range Interpretation Comments Alanine Aminotransferase (ALT/SGPT) (test code = 1742-6) 15 0-55 [facility] Pasoerum or plasma protein measurement (mass/volume)2019-09-30 09:55:00* Test Item Value Reference Range Interpretation Comments Total Protein (test code = 2885-2) 6.4 6.5-8.1 [facility] Paso[facility]um or plasma albumin measurement (mass/volume)2019-09-30 09:55:00* Test Item Value Reference Range Interpretation Comments Albumin (test code = 1751-7) 3.4 3.5-5.0 [facility] CampusPlasma globulin measurement (mass/volume) 2019-09-30 09:55:00* Test Item Value Reference Range Interpretation Comments Globulin (test code = 13326-8) 3.0 2.3-3.5 [facility] Pasoerum or plasma albumin/globulin mass nbywk0990-42-42 09:55:00* Test Item Value Reference Range Interpretation Comments Albumin/Globulin Ratio (test code = 1759-0) 1.1 0.8-2.0 [facility] Pasoerum or plasma alkaline phosphatase measurement (enzymatic activity/volume)2019-09-30 09:55:00* Test Item Value Reference Range Interpretation Comments Alkaline Phosphatase (test code = 6768-6) 92 40-150 [facility] Pasoerum or plasma creatine kinase measurement (enzymatic activity/volume)2019-09-30 09:55:00* Test Item Value Reference Range Interpretation Comments Creatine Kinase (test code = 2157-6) 365 30-200 [facility] Pasoerum or plasma creatine kinase MB measurement (mass/volume)2019-09-30 09:55:00* Test Item Value Reference Range Interpretation Comments Creatine Kinase MB (test code = 58032-5) 1.50 0-5.0 [facility] CampusTroponin I measurement by highly sensitive enzyme krasqyppbvh1306-87-74 09:55:00* Test Item Value Reference Range Interpretation Comments Troponin I (test code = 46136-3) 0.001 0-0.300 [facility] Pasoerum or plasma amylase measurement (enzymatic activity/volume)2019-09-30 09:55:00* Test Item Value Reference Range Interpretation Comments Amylase Level (test code = 1798-8) 49 25-125 [facility] Pasoerum or plasma lipase measurement (enzymatic activity/volume)2019-09-30 09:55:00* Test Item Value Reference Range Interpretation Comments Lipase (test code = 3040-3) < 4 8-78 [facility] CampusActivated partial thromboplastin time (aPTT) in platelet poor plasma by coagulation yebvg6502-05-18 09:55:00* Test Item Value Reference Range Interpretation Comments Activated Partial Thromboplast Time (test code = 22054-2) 26.1 23.8-35.5 [facility] CampusFluoroscopic procedure less than one hour chsinoul8521-32-87 09:55:00* Test Item Value Reference Range Interpretation Comments Lactic Acid Level (test code = Lactic Acid Level) 1.0 0.5- 2.0 [facility] or plasma creatine kinase measurement (enzymatic activity/volume)2019-09-30 09:55:00* Test Item Value Reference Range Interpretation Comments Creatine Kinase (test code = 2157-6) 365 30-200 [facility] or plasma creatine kinase MB measurement (mass/volume)2019-09-30 09:55:00* Test Item Value Reference Range Interpretation Comments Creatine Kinase MB (test code = 92882-2) 1.50 0-5.0 [facility] CampusTroponin I measurement by highly sensitive enzyme uhxljyqkcfy4040-01-45 09:55:00* Test Item Value Reference Range Interpretation Comments Troponin I (test code = 80684-3) 0.001 0-0.300 [facility] or plasma amylase measurement (enzymatic activity/volume)2019-09-30 09:55:00* Test Item Value Reference Range Interpretation Comments Amylase Level (test code = 1798-8) 49 25-125 [facility] or plasma lipase measurement (enzymatic activity/volume)2019-09-30 09:55:00* Test Item Value Reference Range Interpretation Comments Lipase (test code = 3040-3) < 4 8-78 [facility] CampusCHEST SINGLE (PORTABLE)2019-09-30 09:23:00 [facility] [address] [place] [address] Patient Name: BREE LINDSAY MR #: [id number] : 1975 Age/Sex: 43/M Req #: [id number] Adm Physician: Ordered by: JEANNIE QUINONES MD, MD Report #: [id number] Location: ER Room/Bed: Procedure: [id number] DX/CHEST SINGLE (PORTABLE) Exam Date: 09/30/19 Exam Time: 083 5 REPORT STATUS: Signed EXAMINAT ION: CHEST SINGLE (PORTABLE) INDICATION: ERMD ORDER [id number] Y COMPARISON: Chest radiograph 07/23/2019, CT abdomen an d pelvis 07/23/2019 FINDINGS: AP view TUBES and LINES: None. LUNGS: Lungs are well inflated. Mild reticular opacities in both lung bas es and perihilar regions, left greater than right. PLEURA: No pleu ral effusion or pneumothorax. HEART AND MEDIASTINUM: The cardiomediastinal silhouette is unremarkable.. BONES AND SOFT TISSUES: No acute osseous l esion. Soft tissues are unremarkable. UPPER ABDOMEN: No free air under t he diaphragm. IMPRESSION: Radiographic findings suggestive of develo ping atypical infection including viral pneumonia. Differential diagnosis incl udes scattered areas of aspiration. Signed by: Dr. Maggie Patel M.D. on 09/30/2019 9:40 AM Dictated By: MAGGIE BRYAN MD Darshana ctronically Signed By: MAGGIE BRYAN MD on 09/30/19939 Transcribed By: PAULA on 09/30/19939 COPY TO: JEANNIE QUINONES Blood leukocytes automated count (number/volume)2019-09-30 09:10:00* Test Item Value Reference Range Interpretation Comments White Blood Count (test code = 6690-2) 9.64 4.8-10.8 [facility] CampusBlood erythrocytes automated count (number/volume)2019-09-30 09:10:00* Test Item Value Reference Range Interpretation Comments Red Blood Count (test code = 789-8) 3.70 4.3-5.7 [facility] CampusBlood hemoglobin measurement (moles/volume)2019-09-30 09:10:00* Test Item Value Reference Range Interpretation Comments Hemoglobin (test code = 72068-0) 10.4 14.0-18.0 [facility] CampusAutomated blood hematocrit (volume fraction)2019-09-30 09:10:00* Test Item Value Reference Range Interpretation Comments Hematocrit (test code = 4544-3) 32.9 38.2-49.6 [facility] CampusAutomated erythrocyte mean corpuscular baznuk8895-96-04 09:10:00* Test Item Value Reference Range Interpretation Comments Mean Corpuscular Volume (test code = 787-2) 88.9 81-99 [facility] CampusAutomated erythrocyte mean corpuscular hemoglobin (mass per erythrocyte)2019-09-30 09:10:00* Test Item Value Reference Range Interpretation Comments Mean Corpuscular Hemoglobin (test code = 785-6) 28.1 28-32 [facility] CampusAutomated erythrocyte mean corpuscular hemoglobin concentration measurement (mass/volume)2019-09-30 09:10:00* Test Item Value Reference Range Interpretation Comments Mean Corpuscular Hemoglobin Concent (test code = 786-4) 31.6 31-35 [facility] CampusRDW MxiBc-Mxm1881-20-03 09:10:00* Test Item Value Reference Range Interpretation Comments Red Cell Distribution Width (test code = 83620-4) 14.0 11.7 -14.4 [facility] CampusAutomated blood platelet count (count/volume)2019-09-30 09:10:00* Test Item Value Reference Range Interpretation Comments Platelet Count (test code = 777-3) 263 140-360 [facility] neutrophil count as percentage of total mftqohechx1208-39-92 09:10:00* Test Item Value Reference Range Interpretation Comments Neutrophils (%) (Auto) (test code = 94642-5) 80.4 38.7-80.0 [facility] CampusAutomated blood lymphocyte count as percentage ot total udovoxqfyu2577-15-68 09:10:00* Test Item Value Reference Range Interpretation Comments Lymphocytes (%) (Auto) (test code = 736-9) 11.5 18.0-39.1 [facility] CampusAutomated blood monocyte count as percentage of total bkhwjxvqkt2330-70-87 09:10:00* Test Item Value Reference Range Interpretation Comments Monocytes (%) (Auto) (test code = 5905-5) 6.3 4.4-11.3 [facility] CampusAutomated blood eosinophil count as percentage of total qoguigjmco3999-54-37 09:10:00* Test Item Value Reference Range Interpretation Comments Eosinophils (%) (Auto) (test code = 713-8) 0.7 0.0-6.0 [facility] basophil count as percentage of total uqdzxihokw1723-63-20 09:10:00* Test Item Value Reference Range Interpretation Comments Basophils (%) (Auto) (test code = 706-2) 0.8 0.0-1.0 [facility] CampusFluoroscopic procedure less than one hour kxyubiyx1164-48-79 09:10:00* Test Item Value Reference Range Interpretation Comments IM GRANULOCYTES % (test code = IM GRANULOCYTES %) 0.3 0.0- 1.0 [facility] CampusAutomated blood neutrophil count 2019-09-30 09:10:00* Test Item Value Reference Range Interpretation Comments Neutrophils # (Auto) (test code = 751-8) 7.7 2.1-6.9 [facility] CampusBlood lymphocytes count (number/volume) 2019-09-30 09:10:00* Test Item Value Reference Range Interpretation Comments Lymphocytes # (Auto) (test code = 06950-6) 1.1 1.0-3.2 [facility] CampusBlood monocytes automated count (number/volume)2019-09-30 09:10:00* Test Item Value Reference Range Interpretation Comments Monocytes # (Auto) (test code = 742-7) 0.6 0.2-0.8 [facility] CampusAutomated blood eosinophil count 2019-09-30 09:10:00* Test Item Value Reference Range Interpretation Comments Eosinophils # (Auto) (test code = 711-2) 0.1 0.0-0.4 [facility] CampusAutomated blood basophil count (count/volume)2019-09-30 09:10:00* Test Item Value Reference Range Interpretation Comments Basophils # (Auto) (test code = 704-7) 0.1 0.0-0.1 [facility] CampusFluoroscopic procedure less than one hour griunzmi7448-54-52 09:10:00* Test Item Value Reference Range Interpretation Comments Absolute Immature Granulocyte (auto (zeenat t code = Absolute Immature Granulocyte (auto) 0.03 0-0.1 [facility] CampusBlood ksszdpv4602-14-09 09:10:00* Test Item Value Reference Range Interpretation Comments Blood Culture (test code = 16057408) NO GROWTH AFTER 5 DAYS, FINAL REPORT [facility] CampusUrine color cewaeicqnxpxq4092-84-78 08:44:00* Test Item Value Reference Range Interpretation Comments Urine Color (test code = 5778-6) YELLOW YELLOW [facility] CampusUrine wwjnzas0745-96-91 08:44:00* Test Item Value Reference Range Interpretation Comments Urine Clarity (test code = 18096-3) CLEAR CLEAR [facility] Pasopecific gravity of Urine by Test strip 2019-09-30 08:44:00* Test Item Value Reference Range Interpretation Comments Urine Specific Bowman (test code = 5811-5) 1.025 1.010-1.02 5 [facility] CampusUrine pH measurement by automated test nojps6806-43-06 08:44:00* Test Item Value Reference Range Interpretation Comments Urine pH (test code = 81210-5) 7 5-7 [facility] CampusUrine leukocyte esterase detection by yhctoqyo4397-47-02 08:44:00* Test Item Value Reference Range Interpretation Comments Urine Leukocyte Esterase (test code = 5799-2) NEGATIVE NEGATIVE [facility] CampusUrine nitrite puaegtmah3956-50-38 08:44:00* Test Item Value Reference Range Interpretation Comments Urine Nitrite (test code = 93476-1) NEGATIVE NEGATIVE [facility] CampusUrine protein measurement by test strip (mass/volume)2019-09-30 08:44:00* Test Item Value Reference Range Interpretation Comments Urine Protein (test code = 5804-0) 1+ NEGATIVE [facility] CampusUrine glucose vwionihrz0933-35-70 08:44:00* Test Item Value Reference Range Interpretation Comments Urine Glucose (UA) (test code = 2349-9) 2+ NEGATIVE [facility] CampusUrine ketones detection by automated test gflgi6139-76-05 08:44:00* Test Item Value Reference Range Interpretation Comments Urine Ketones (test code = 73173-2) 2+ NEGATIVE [facility] CampusUrine opiates screening qrxg1159-19-56 08:44:00* Test Item Value Reference Range Interpretation Comments Urine Opiates Screen (test code = 15107-9) POSITIVE NEGATIVE This test provides only a screen. Positive results should be repeated by a confi rmatory test.[facility] CampusBarbiturates screen, urine 2019-09-30 08:44:00* Test Item Value Reference Range Interpretation Comments Urine Barbiturates Screen (test code = 716101927) NEGATIVE NEGA TIVE [facility] CampusUrine phencyclidine detection by screening ksjtip3153-06-76 08:44:00* Test Item Value Reference Range Interpretation Comments Urine Phencyclidine Screen (test code = 33106-7) NEGATIVE NEGAT [place] [facility] CampusUrine amphetamines detection by screen method > 1000 ng/aL5508-61-28 08:44:00* Test Item Value Reference Range Interpretation Comments Urine Amphetamines Screen (test code = 61936-7) NEGATIVE NEGATI VE [facility] CampusFluoroscopic procedure less than one hour hcltrrrd3715-39-45 08:44:00* Test Item Value Reference Range Interpretation Comments Urine Methamphetamines Screen (test code = Urine Metha mphetamines Screen) NEGATIVE NEGATIVE [facility] CampusUrine benzodiazepines detection by screening wldcsy1318-76-93 08:44:00* Test Item Value Reference Range Interpretation Comments Urine Benzodiazepines Screen (test code = 16256-1) POSITIVE NEG ATIVE This test provides only a screen. Positive results should be repeated by a confi rmatory test.[facility] CampusUrine cocaine measurement (mass/volume)2019-09-30 08:44:00* Test Item Value Reference Range Interpretation Comments Urine Cocaine Screen (test code = 3398-5) NEGATIVE NEGATIVE [facility] CampusUrine cannabinoids detection by screening shddsa5612-87-87 08:44:00* Test Item Value Reference Range Interpretation Comments Urine Cannabinoids Screen (test code = 30130-1) POSITIVE NEGATI VE This test provides only a screen. Positive results should be repeated by a confi rmatory test.[facility] CampusUrine methadone screen 2019-09-30 08:44:00* Test Item Value Reference Range Interpretation Comments Urine Methadone Screen (test code = 40812-4) NEGATIVE NEGATIVE THESE RESULTS ARE FOR MEDICAL TREATMENT ONLYTHIS REPORT CONTAINS UNCONFIR MED SCREENING RESULTS*POSITIVE RESULTS WILL BE CONFIRMED BY REFERENCE LAB UPON R EQUEST CUT-OFFDRUG CLASS CONCENTRATION ng/mLAmphetamines 1000Methamphetamines 1000Cocaine Metabolite 300Opiate 300Phencyc lidine 25Cannabinoid 50Barbiturates 300Benzodiazepine 300Methadone 300[facility] CampusUrine urobilinogen measurement by test strip (mass/volume)2019-09-30 08:44:00* Test Item Value Reference Range Interpretation Comments Urine Urobilinogen (test code = 31307-8) 0.2 0.2-1 [facility] CampusUrine total bilirubin measurement (mass/volume)2019-09-30 08:44:00* Test Item Value Reference Range Interpretation Comments Urine Bilirubin (test code = 1978-6) NEGATIVE NEGATIVE [facility] CampusUrine erythrocytes hwbnbratt5332-88-16 08:44:00* Test Item Value Reference Range Interpretation Comments Urine Blood (test code = 02897-8) TRACE NEGATIVE [facility] CampusAutomated urine sediment leukocyte count by microscopy (number/high power field)2019-09-30 08:44:00* Test Item Value Reference Range Interpretation Comments Urine WBC (test code = 5821-4) 21-50 0-5 [facility] CampusErythrocytes detection in urine sediment by light gmsgxpqzpe2165-95-14 08:44:00* Test Item Value Reference Range Interpretation Comments Urine RBC (test code = 26058-2) 6-10 0-5 [facility] CampusBacteria detection in urine sediment by light jpivmcnfmu8199-33-36 08:44:00* Test Item Value Reference Range Interpretation Comments Urine Bacteria (test code = 96233-5) FEW NONE [facility] CampusEpithelial cells detection in urine sediment by light zauqdypqjg2787-70-83 08:44:00* Test Item Value Reference Range Interpretation Comments Urine Epithelial Cells (test code = 84033-6) RARE NONE [facility] CampusCapillary blood glucose measurement by glucometer (mass/volume)2019-09-24 07:23:00* Test Item Value Reference Range Interpretation Comments Bedside Glucose (test code = 69854-9) 83 70-120 Meter ID: [id number] [facility] CampusCapillary blood glucose measurement by glucometer (mass/volume)2019-09-24 07:23:00* Test Item Value Reference Range Interpretation Comments Bedside Glucose (test code = 86952-3) 83 70-120 Meter ID: [id number] Hospitals of [facility] CampusCapillary blood glucose measurement by glucometer (mass/volume)2019-09-24 07:23:00* Test Item Value Reference Range Interpretation Comments Bedside Glucose (test code = 64330-5) 83 70-120 Meter ID: [id number] [facility] CampusTroponin I measurement by highly sensitive enzyme wlunssdclrq8844-62-42 09:58:00* Test Item Value Reference Range Interpretation Comments Troponin I (test code = 25281-8) 0.016 0-0.300 [facility] CampusTroponin I measurement by highly sensitive enzyme cgsgcjqubdj2806-22-63 09:58:00* Test Item Value Reference Range Interpretation Comments Troponin I (test code = 58775-1) 0.016 0-0.300 [facility] CampusBlood leukocytes automated count (number/volume)2019-09-23 05:42:00* Test Item Value Reference Range Interpretation Comments White Blood Count (test code = 6690-2) 8.62 4.8-10.8 [facility] CampusBlood erythrocytes automated count (number/volume)2019-09-23 05:42:00* Test Item Value Reference Range Interpretation Comments Red Blood Count (test code = 789-8) 3.57 4.3-5.7 [facility] hemoglobin measurement (moles/volume)2019-09-23 05:42:00* Test Item Value Reference Range Interpretation Comments Hemoglobin (test code = 19615-7) 10.3 14.0-18.0 [facility] CampusAutomated blood hematocrit (volume fraction)2019-09-23 05:42:00* Test Item Value Reference Range Interpretation Comments Hematocrit (test code = 4544-3) 32.2 38.2-49.6 [facility] CampusAutomated erythrocyte mean corpuscular mycazd4911-33-49 05:42:00* Test Item Value Reference Range Interpretation Comments Mean Corpuscular Volume (test code = 787-2) 90.2 81-99 [facility] CampusAutomated erythrocyte mean corpuscular hemoglobin (mass per erythrocyte)2019-09-23 05:42:00* Test Item Value Reference Range Interpretation Comments Mean Corpuscular Hemoglobin (test code = 785-6) 28.9 28-32 [facility] CampusAutomated erythrocyte mean corpuscular hemoglobin concentration measurement (mass/volume)2019-09-23 05:42:00* Test Item Value Reference Range Interpretation Comments Mean Corpuscular Hemoglobin Concent (test code = 786-4) 32.0 31-35 [facility] CampusRDW FspKb-Sws2189-80-26 05:42:00* Test Item Value Reference Range Interpretation Comments Red Cell Distribution Width (test code = 20464-3) 13.7 11.7 -14.4 [facility] CampusAutomated blood platelet count (count/volume)2019-09-23 05:42:00* Test Item Value Reference Range Interpretation Comments Platelet Count (test code = 777-3) 183 140-360 [facility] CampusAutcritical access hospitaled blood segmented neutrophil count as percentage of total xktuqeuhkc0973-50-97 05:42:00* Test Item Value Reference Range Interpretation Comments Neutrophils (%) (Auto) (test code = 82551-9) 78.4 38.7-80.0 [facility] CampusAutomated blood lymphocyte count as percentage ot total xztlkkffol4032-57-76 05:42:00* Test Item Value Reference Range Interpretation Comments Lymphocytes (%) (Auto) (test code = 736-9) 13.1 18.0-39.1 [facility] CampusAutomated blood monocyte count as percentage of total lvaymzavlu1643-66-65 05:42:00* Test Item Value Reference Range Interpretation Comments Monocytes (%) (Auto) (test code = 5905-5) 7.7 4.4-11.3 [facility] CampusAutcritical access hospitaled blood eosinophil count as percentage of total asmoocnera4562-92-65 05:42:00* Test Item Value Reference Range Interpretation Comments Eosinophils (%) (Auto) (test code = 713-8) 0.1 0.0-6.0 [facility] CampusAutomated blood basophil count as percentage of total jdpadxnruj4138-33-83 05:42:00* Test Item Value Reference Range Interpretation Comments Basophils (%) (Auto) (test code = 706-2) 0.5 0.0-1.0 [facility] CampusFluoroscopic procedure less than one hour pcjvkhak4679-06-57 05:42:00* Test Item Value Reference Range Interpretation Comments IM GRANULOCYTES % (test code = IM GRANULOCYTES %) 0.2 0.0- 1.0 [facility] CampusAutomated blood neutrophil count 2019-09-23 05:42:00* Test Item Value Reference Range Interpretation Comments Neutrophils # (Auto) (test code = 751-8) 6.8 2.1-6.9 [facility] CampusBlood lymphocytes count (number/volume) 2019-09-23 05:42:00* Test Item Value Reference Range Interpretation Comments Lymphocytes # (Auto) (test code = 06925-0) 1.1 1.0-3.2 [facility] CampusBlwind[facility] monocytes automated count (number/volume)2019-09-23 05:42:00* Test Item Value Reference Range Interpretation Comments Monocytes # (Auto) (test code = 742-7) 0.7 0.2-0.8 [facility] CampusAutomated blood eosinophil count 2019-09-23 05:42:00* Test Item Value Reference Range Interpretation Comments Eosinophils # (Auto) (test code = 711-2) 0.0 0.0-0.4 [facility] CampusAutomated blood basophil count (count/volume)2019-09-23 05:42:00* Test Item Value Reference Range Interpretation Comments Basophils # (Auto) (test code = 704-7) 0.0 0.0-0.1 [facility] CampusFluoroscopic procedure less than one hour tatvbnxi3886-00-57 05:42:00* Test Item Value Reference Range Interpretation Comments Absolute Immature Granulocyte (auto (zeenat t code = Absolute Immature Granulocyte (auto) 0.02 0-0.1 [facility]erum or plasma sodium measurement (moles/volume)2019-09-23 05:42:00* Test Item Value Reference Range Interpretation Comments Sodium Level (test code = 2951-2) 138 136-145 [facility] Pasoerum or plasma potassium measurement (moles/volume)2019-09-23 05:42:00* Test Item Value Reference Range Interpretation Comments Potassium Level (test code = 2823-3) 3.6 3.5-5.1 [facility] Pasoerum or plasma chloride measurement (moles/volume)2019-09-23 05:42:00* Test Item Value Reference Range Interpretation Comments Chloride Level (test code = 2075-0) 101 98-107 [facility] Pasoerum or plasma carbon dioxide, total measurement (moles/volume)2019-09-23 05:42:00* Test Item Value Reference Range Interpretation Comments Carbon Dioxide Level (test code = 2028-9) 28 22-29 [facility] Pasoerum or plasma anion ddn4663-36-73 05:42:00* Test Item Value Reference Range Interpretation Comments Anion Gap (test code = 08654-4) 12.6 8-16 [facility] Pasoerum or plasma urea nitrogen measurement (mass/volume)2019-09-23 05:42:00* Test Item Value Reference Range Interpretation Comments Blood Urea Nitrogen (test code = 3094-0) 22 7- [facility] Pasoerum or plasma creatinine measurement (mass/volume)2019-09-23 05:42:00* Test Item Value Reference Range Interpretation Comments Creatinine (test code = 2160-0) 1.16 0.72-1.25 [facility] Pasoerum or plasma urea nitrogen/creatinine mass uundv2219-93-20 05:42:00* Test Item Value Reference Range Interpretation Comments BUN/Creatinine Ratio (test code = 3097-3) 19 6-25 [facility] CampusEstimated glomerular filtration rate (GFR) inleogkqcerkg0478-09-45 05:42:00* Test Item Value Reference Range Interpretation Comments Estimat Glomerular Filtration Rate (test code = 819871978) > 60 >60 Ranges were taken from the National Kidney Disease Education Program and the [facility] literature.Reference ranges:60 or greater: Frippe75-45 ( for 3 consecutive months): Chronic kidney disease 15 or less: Kidney failureThe Hospitals of Providence Horizon City CampusGlucose rttycajfued3654-60-98 05:42:00* Test Item Value Reference Range Interpretation Comments Glucose Level (test code = YQX3915) 266 74-118 [facility] Paso[facility]um or plasma calcium measurement (mass/volume)2019-09-23 05:42:00* Test Item Value Reference Range Interpretation Comments Calcium Level (test code = 43528-8) 8.3 8.4-10.2 [facility] Pasoerum or plasma total bilirubin measurement (mass/volume)2019-09-23 05:42:00* Test Item Value Reference Range Interpretation Comments Total Bilirubin (test code = 1975-2) 0.4 0.2-1.2 [facility] CampusFluoroscopic procedure less than one hour prmyecwi4489-37-74 05:42:00* Test Item Value Reference Range Interpretation Comments Aspartate Amino Transf (AST/SGOT) (test code = Aspartate Amino Transf (AST/SGOT)) 14 5-34 [facility] Pasoerum or plasma alanine aminotransferase measurement (enzymatic activity/volume)2019-09-23 05:42:00* Test Item Value Reference Range Interpretation Comments Alanine Aminotransferase (ALT/SGPT) (test code = 1742-6) 14 0-55 [facility] Pasoerum or plasma protein measurement (mass/volume)2019-09-23 05:42:00* Test Item Value Reference Range Interpretation Comments Total Protein (test code = 2885-2) 6.2 6.5-8.1 [facility] Pasoerum or plasma albumin measurement (mass/volume)2019-09-23 05:42:00* Test Item Value Reference Range Interpretation Comments Albumin (test code = 1751-7) 3.4 3.5-5.0 [facility] CampusPlasma globulin measurement (mass/volume) 2019-09-23 05:42:00* Test Item Value Reference Range Interpretation Comments Globulin (test code = 04414-9) 2.8 2.3-3.5 [facility] Pasoerum or plasma albumin/globulin mass [id number] 05:42:00* Test Item Value Reference Range Interpretation Comments Albumin/Globulin Ratio (test code = 1759-0) 1.2 0.8-2.0 [facility] alkaline phosphatase measurement (enzymatic activity/volume)2019-09-23 05:42:00* Test Item Value Reference Range Interpretation Comments Alkaline Phosphatase (test code = 6768-6) 108 40-150 [facility] leukocytes automated count (number/volume)2019-09-23 05:42:00* Test Item Value Reference Range Interpretation Comments White Blood Count (test code = 6690-2) 8.62 4.8-10.8 [facility] erythrocytes automated count (number/volume)2019-09-23 05:42:00* Test Item Value Reference Range Interpretation Comments Red Blood Count (test code = 789-8) 3.57 4.3-5.7 [facility] hemoglobin measurement (moles/volume)2019-09-23 05:42:00* Test Item Value Reference Range Interpretation Comments Hemoglobin (test code = 50962-0) 10.3 14.0-18.0 [facility] CampusAutomated blood hematocrit (volume fraction)2019-09-23 05:42:00* Test Item Value Reference Range Interpretation Comments Hematocrit (test code = 4544-3) 32.2 38.2-49.6 [facility] CampusAutomated erythrocyte mean corpuscular walshg3576-87-45 05:42:00* Test Item Value Reference Range Interpretation Comments Mean Corpuscular Volume (test code = 787-2) 90.2 81-99 [facility] CampusAutomated erythrocyte mean corpuscular hemoglobin (mass per erythrocyte)2019-09-23 05:42:00* Test Item Value Reference Range Interpretation Comments Mean Corpuscular Hemoglobin (test code = 785-6) 28.9 28-32 [facility] CampusAutec[facility] mean corpuscular hemoglobin concentration measurement (mass/volume)2019-09-23 05:42:00* Test Item Value Reference Range Interpretation Comments Mean Corpuscular Hemoglobin Concent (test code = 786-4) 32.0 31-35 [facility] CampusRDW EklXn-Zxi0956-12-26 05:42:00* Test Item Value Reference Range Interpretation Comments Red Cell Distribution Width (test code = 57950-7) 13.7 11.7 -14.4 [facility] (count/volume)2019-09-23 05:42:00* Test Item Value Reference Range Interpretation Comments Platelet Count (test code = 777-3) 183 140-360 [facility] CampusAutcritical access hospitaled blood segmented neutrophil count as percentage of total ynovspmdwe6105-63-14 05:42:00* Test Item Value Reference Range Interpretation Comments Neutrophils (%) (Auto) (test code = 13002-9) 78.4 38.7-80.0 [facility]Autcritical [facility] hospitaled blood lymphocyte count as percentage ot total wtamevxupx2558-63-14 05:42:00* Test Item Value Reference Range Interpretation Comments Lymphocytes (%) (Auto) (test code = 736-9) 13.1 18.0-39.1 [facility] CampusAutomated blood monocyte count as percentage of total lpfpgcrose0254-85-14 05:42:00* Test Item Value Reference Range Interpretation Comments Monocytes (%) (Auto) (test code = 5905-5) 7.7 4.4-11.3 [facility] CampusAutomated blood eosinophil count as percentage of total hcjxnghcrn5272-97-76 05:42:00* Test Item Value Reference Range Interpretation Comments Eosinophils (%) (Auto) (test code = 713-8) 0.1 0.0-6.0 [facility] CampusAutomated blood basophil count as percentage of total rmdufywooa0149-57-02 05:42:00* Test Item Value Reference Range Interpretation Comments Basophils (%) (Auto) (test code = 706-2) 0.5 0.0-1.0 [facility] CampusFluoroscopic procedure less than one hour sdmqbyah9413-62-65 05:42:00* Test Item Value Reference Range Interpretation Comments IM GRANULOCYTES % (test code = IM GRANULOCYTES %) 0.2 0.0- 1.0 [facility] CampusAutomated blood neutrophil count 2019-09-23 05:42:00* Test Item Value Reference Range Interpretation Comments Neutrophils # (Auto) (test code = 751-8) 6.8 2.1-6.9 [facility] CampusBlood lymphocytes count (number/volume) 2019-09-23 05:42:00* Test Item Value Reference Range Interpretation Comments Lymphocytes # (Auto) (test code = 95355-0) 1.1 1.0-3.2 [facility] CampusBlood monocytes automated count (number/volume)2019-09-23 05:42:00* Test Item Value Reference Range Interpretation Comments Monocytes # (Auto) (test code = 742-7) 0.7 0.2-0.8 [facility] CampusAutomated blood eosinophil count 2019-09-23 05:42:00* Test Item Value Reference Range Interpretation Comments Eosinophils # (Auto) (test code = 711-2) 0.0 0.0-0.4 [facility] CampusAutomated blood basophil count (count/volume)2019-09-23 05:42:00* Test Item Value Reference Range Interpretation Comments Basophils # (Auto) (test code = 704-7) 0.0 0.0-0.1 [facility] CampusFluoroscopic procedure less than one hour zwprxkeg5928-29-37 05:42:00* Test Item Value Reference Range Interpretation Comments Absolute Immature Granulocyte (auto (zeenat t code = Absolute Immature Granulocyte (auto) 0.02 0-0.1 [facility] or plasma sodium measurement (moles/volume)2019-09-23 05:42:00* Test Item Value Reference Range Interpretation Comments Sodium Level (test code = 2951-2) 138 136-145 [facility]er[facility] or plasma potassium measurement (moles/volume)2019-09-23 05:42:00* Test Item Value Reference Range Interpretation Comments Potassium Level (test code = 2823-3) 3.6 3.5-5.1 [facility] or plasma chloride measurement (moles/volume)2019-09-23 05:42:00* Test Item Value Reference Range Interpretation Comments Chloride Level (test code = 2075-0) 101 98-107 [facility] Pasoer[facility] or plasma carbon dioxide, total measurement (moles/volume)2019-09-23 05:42:00* Test Item Value Reference Range Interpretation Comments Carbon Dioxide Level (test code = 2028-9) 28 22-29 [facility] Paso[facility] or plasma anion otk4309-35-82 05:42:00* Test Item Value Reference Range Interpretation Comments Anion Gap (test code = 66272-7) 12.6 8-16 [facility] or plasma urea nitrogen measurement (mass/volume)2019-09-23 05:42:00* Test Item Value Reference Range Interpretation Comments Blood Urea Nitrogen (test code = 3094-0) 22 7-26 [facility] or plasma creatinine measurement (mass/volume)2019-09-23 05:42:00* Test Item Value Reference Range Interpretation Comments Creatinine (test code = 2160-0) 1.16 0.72-1.25 [facility] or plasma urea nitrogen/creatinine mass cvgjm9086-59-95 05:42:00* Test Item Value Reference Range Interpretation Comments BUN/Creatinine Ratio (test code = 3097-3) 19 6-25 [facility] CampusEstimated glomerular filtration rate (GFR) xyingrllldgtp9498-59-99 05:42:00* Test Item Value Reference Range Interpretation Comments Estimat Glomerular Filtration Rate (test code = 219072348) > 60 >60 Ranges were taken from the National Kidney Disease Education Program and the [facility] Kid[facility] Foundation literature.Reference ranges:60 or greater: Bovnzz58-08 ( for 3 consecutive months): Chronic kidney disease 15 or less: Kidney failureThe Hospitals of Providence [facility] City CampusGlucose iayxkumyruq3960-49-48 05:42:00* Test Item Value Reference Range Interpretation Comments Glucose Level (test code = IYG6573) 266 74-118 [facility]er[facility] or plasma calcium measurement (mass/volume)2019-09-23 05:42:00* Test Item Value Reference Range Interpretation Comments Calcium Level (test code = 32595-4) 8.3 8.4-10.2 [facility] or plasma total bilirubin measurement (mass/volume)2019-09-23 05:42:00* Test Item Value Reference Range Interpretation Comments Total Bilirubin (test code = 1975-2) 0.4 0.2-1.2 [facility] CampusFluoroscopic procedure less than one hour scgjhthv3547-77-31 05:42:00* Test Item Value Reference Range Interpretation Comments Aspartate Amino Transf (AST/SGOT) (test code = Aspartate Amino Transf (AST/SGOT)) 14 5-34 [facility]er[facility] or plasma alanine aminotransferase measurement (enzymatic activity/volume)2019-09-23 05:42:00* Test Item Value Reference Range Interpretation Comments Alanine Aminotransferase (ALT/SGPT) (test code = 1742-6) 14 0-55 [facility]er[facility] or plasma protein measurement (mass/volume)2019-09-23 05:42:00* Test Item Value Reference Range Interpretation Comments Total Protein (test code = 2885-2) 6.2 6.5-8.1 [facility] Pasoer[facility] or plasma albumin measurement (mass/volume)2019-09-23 05:42:00* Test Item Value Reference Range Interpretation Comments Albumin (test code = 1751-7) 3.4 3.5-5.0 [facility] CampusPlasma globulin measurement (mass/volume) 2019-09-23 05:42:00* Test Item Value Reference Range Interpretation Comments Globulin (test code = 62137-9) 2.8 2.3-3.5 [facility] or plasma albumin/globulin mass mrzkw3134-56-37 05:42:00* Test Item Value Reference Range Interpretation Comments Albumin/Globulin Ratio (test code = 1759-0) 1.2 0.8-2.0 [facility]er[facility] or plasma alkaline phosphatase measurement (enzymatic activity/volume)2019-09-23 05:42:00* Test Item Value Reference Range Interpretation Comments Alkaline Phosphatase (test code = 6768-6) 108 40-150 [facility] CampusABDOMEN-1VIEW (KUB)2019-09-22 13:59:00 [facility] [address] [place] [address] Patient Name: BREE LINDSAY MR #: [id number] : 1975 Age/Sex: 43/M Req #: [id number] Adm Physician: RUSLAN CARTER MD Ordered by: RUSLAN CARTER MD Re port #: [id number] [facility] Bed: [facility] Procedure: [id number] DX/ABDOMEN-1V IEW (KUB) Exam Date: 09/22/19 Exam Time: 1330 REPORT STATUS: Signed Exam: KUB - 2 vi ews Indication: Abdominal Pain Comparison: CT abdomen and pelvis of Findings: Nonobstructive bowel gas pattern. No evidence of free intraperitoneal air. No evidence of abnormal calcification. No acute bony abno rmality. Impression: No acute radiographic abnormality. Signed by: Ezequiel Madsen MD on 09/22/2019 2:00 PM Dictated By: ALEXANDER MADSEN MD Electronic ally Signed By: ALEXANDER MADSEN MD on 09/22/19 1400 Transcribed By: PAULA on 09/21 1400 COPY TO: RUSLAN CARTER MD Capillary blood glucose measurement by glucometer (mass/volume)2019-08-25 11:40:00* Test Item Value Reference Range Interpretation Comments Bedside Glucose (test code = 91876-1) 179 70-120 Meter ID: [id number] [facility]inteCapillary blood glucose measurement by glucometer (mass/volume)2019-08-25 11:40:00* Test Item Value Reference Range Interpretation Comments Bedside Glucose (test code = 35778-6) 179 70-120 Meter ID: [id number] [facility]inteFluoroscopic procedure less than one hour spcadrzy2350-59-09 13:20:00* Test Item Value Reference Range Interpretation Comments Coronavirus (PCR) (test code = Coronavirus (PCR)) NOT DETECTED NOTD ETECTED SARS-COV-2 (COVID19), HIGHRISK, RT-PCRNegative results do not preclude SARS-CoV- 2 infection and should not be used as the sole basis for patient management deci sions. Negative results must be combined with clinical observations, patient his tory, and epidemiological information. Optimum specimen types and timing for pea k viral levels during infections caused by SARS-CoV-2 have not been determined. Collection of multiple specimens ot types of specimens may be necessary to detec t virus. Improper specimen collection and handling, sequence variability under p rimers/probes, or organism present below the limit of detection may lead to fals e negative results. Positive and negative predictive values of testing are highl y dependent on prevalance. False negative test results are more likely when prev alence is high.The expected result is negative (not detected).The SARS-CoV-2 zeenat t is intended for the qualitative detection of nucleic acid from SARS-CoV-2 in n asopharyngeal and oropharyngeal swab samples from patients who meet COVID-19 cli nical and or epidemiological criteria. For lower respiratory tract specimens, th e assay is submitted for authoriztion by FDA under an Emergency Use Authorizatio n (EUA). Testing methodology is real time RT-PCR. If received as separate collec tion devices, nasopharygeal and oropharyngeal specimens are combined for analysi s. Additional specimens may be split to a separate accession for analysi and rep orting as this test includes a single unit of service.Test results must be corre lated with clinical presentation and evaluated in the context of other laborator y and epidemiologic data. Test performance can be affected because the epidemiol ogy and clinical spectrum of infection caused by SARS-CoV-2 is not fully known. For example, the optimum types of specimens to collect and when during the cours e of infection these specimens are most likely to contain detectable viral RNA m ay not be known.This test has not been Food and Drug Administration (FDA) cleare d or approved and has been authorized by FDA under an Emergency Use Authorizatio n (EUA). The test is only authorized for the duration of the declaration that ci rcumstances exist justifying the authorization of emergency use of in vitro diag nostic tests for detection and/or diagnosis of SARS-CoV-2 under section 564(b) o f the Act, 21 U.S.C. section 360bbb-3(b)(1), unless the authorization is termina arben or revoked sooner. [facility] are certified under the C linical Laboratory Improvement Amendments of 1988 (CLIA), 42 U.S.C. section 263a , to perform high complexity tests.Testing performed by [facility] [id number] [place] [address] [phone] Director: Yuri Perry M.D.CLIA # [id number] [facility] Fluoroscopic procedure less than one hour zzjixcgb4663-69-84 13:20:00* Test Item Value Reference Range Interpretation Comments Coronavirus (PCR) (test code = Coronavirus (PCR)) NOT DETECTED NOTD ETECTED SARS-COV-2 (COVID19), HIGHRISK, RT-PCRNegative results do not preclude SARS-CoV- 2 infection and should not be used as the sole basis for patient management deci sions. Negative results must be combined with clinical observations, patient his tory, and epidemiological information. Optimum specimen types and timing for pea k viral levels during infections caused by SARS-CoV-2 have not been determined. Collection of multiple specimens ot types of specimens may be necessary to detec t virus. Improper specimen collection and handling, sequence variability under p rimers/probes, or organism present below the limit of detection may lead to fals e negative results. Positive and negative predictive values of testing are highl y dependent on prevalance. False negative test results are more likely when prev alence is high.The expected result is negative (not detected).The SARS-CoV-2 zeenat t is intended for the qualitative detection of nucleic acid from SARS-CoV-2 in n asopharyngeal and oropharyngeal swab samples from patients who meet COVID-19 cli nical and or epidemiological criteria. For lower respiratory tract specimens, th e assay is submitted for authoriztion by FDA under an Emergency Use Authorizatio n (EUA). Testing methodology is real time RT-PCR. If received as separate collec tion devices, nasopharygeal and oropharyngeal specimens are combined for analysi s. Additional specimens may be split to a separate accession for analysi and rep orting as this test includes a single unit of service.Test results must be corre lated with clinical presentation and evaluated in the context of other laborator y and epidemiologic data. Test performance can be affected because the epidemiol ogy and clinical spectrum of infection caused by SARS-CoV-2 is not fully known. For example, the optimum types of specimens to collect and when during the cours e of infection these specimens are most likely to contain detectable viral RNA m ay not be known.This test has not been Food and Drug Administration (FDA) cleare d or approved and has been authorized by FDA under an Emergency Use Authorizatio n (EUA). The test is only authorized for the duration of the declaration that ci rcumstances exist justifying the authorization of emergency use of in vitro diag nostic tests for detection and/or diagnosis of SARS-CoV-2 under section 564(b) o f the Act, 21 U.S.C. section 360bbb-3(b)(1), unless the authorization is termina arben or revoked sooner. [facility] are certified under the C linical Laboratory Improvement Amendments of 1988 (CLIA), 42 U.S.C. section 263a , to perform high complexity tests.Testing performed by [facility] [id number] [place], [place] [phone] Director: Yuri Perry M.D.CLIA # [id number] [facility] Fluoroscopic procedure less than one hour rjabyhot7350-09-62 13:20:00* Test Item Value Reference Range Interpretation Comments Coronavirus (PCR) (test code = Coronavirus (PCR)) NOT DETECTED NOTD ETECTED SARS-COV-2 (COVID19), HIGHRISK, RT-PCRNegative results do not preclude SARS-CoV- 2 infection and should not be used as the sole basis for patient management deci sions. Negative results must be combined with clinical observations, patient his tory, and epidemiological information. Optimum specimen types and timing for pea k viral levels during infections caused by SARS-CoV-2 have not been determined. Collection of multiple specimens ot types of specimens may be necessary to detec t virus. Improper specimen collection and handling, sequence variability under p rimers/probes, or organism present below the limit of detection may lead to fals e negative results. Positive and negative predictive values of testing are highl y dependent on prevalance. False negative test results are more likely when prev alence is high.The expected result is negative (not detected).The SARS-CoV-2 zeenat t is intended for the qualitative detection of nucleic acid from SARS-CoV-2 in n asopharyngeal and oropharyngeal swab samples from patients who meet COVID-19 cli nical and or epidemiological criteria. For lower respiratory tract specimens, th e assay is submitted for authoriztion by FDA under an Emergency Use Authorizatio n (EUA). Testing methodology is real time RT-PCR. If received as separate collec tion devices, nasopharygeal and oropharyngeal specimens are combined for analysi s. Additional specimens may be split to a separate accession for analysi and rep orting as this test includes a single unit of service.Test results must be corre lated with clinical presentation and evaluated in the context of other laborator y and epidemiologic data. Test performance can be affected because the epidemiol ogy and clinical spectrum of infection caused by SARS-CoV-2 is not fully known. For example, the optimum types of specimens to collect and when during the cours e of infection these specimens are most likely to contain detectable viral RNA m ay not be known.This test has not been Food and Drug Administration (FDA) cleare d or approved and has been authorized by FDA under an Emergency Use Authorizatio n (EUA). The test is only authorized for the duration of the declaration that ci rcumstances exist justifying the authorization of emergency use of in vitro diag nostic tests for detection and/or diagnosis of SARS-CoV-2 under section 564(b) o f the Act, 21 U.S.C. section 360bbb-3(b)(1), unless the authorization is termina arben or revoked sooner. [facility] are certified under the C linical Laboratory Improvement Amendments of 1988 (CLIA), 42 U.S.C. section 263a , to perform high complexity tests.Testing performed by [facility] [id number] [place] [address] [phone] Director: Yuri Perry M.D.CLIA # [id number] [facility] Fluoroscopic procedure less than one hour quwausxu8330-46-25 13:20:00* Test Item Value Reference Range Interpretation Comments Coronavirus (PCR) (test code = Coronavirus (PCR)) NOT DETECTED NOTD ETECTED SARS-COV-2 (COVID19), HIGHRISK, RT-PCRNegative results do not preclude SARS-CoV- 2 infection and should not be used as the sole basis for patient management deci sions. Negative results must be combined with clinical observations, patient his tory, and epidemiological information. Optimum specimen types and timing for pea k viral levels during infections caused by SARS-CoV-2 have not been determined. Collection of multiple specimens ot types of specimens may be necessary to detec t virus. Improper specimen collection and handling, sequence variability under p rimers/probes, or organism present below the limit of detection may lead to fals e negative results. Positive and negative predictive values of testing are highl y dependent on prevalance. False negative test results are more likely when prev alence is high.The expected result is negative (not detected).The SARS-CoV-2 zeenat t is intended for the qualitative detection of nucleic acid from SARS-CoV-2 in n asopharyngeal and oropharyngeal swab samples from patients who meet COVID-19 cli nical and or epidemiological criteria. For lower respiratory tract specimens, th e assay is submitted for authoriztion by FDA under an Emergency Use Authorizatio n (EUA). Testing methodology is real time RT-PCR. If received as separate collec tion devices, nasopharygeal and oropharyngeal specimens are combined for analysi s. Additional specimens may be split to a separate accession for analysi and rep orting as this test includes a single unit of service.Test results must be corre lated with clinical presentation and evaluated in the context of other laborator y and epidemiologic data. Test performance can be affected because the epidemiol ogy and clinical spectrum of infection caused by SARS-CoV-2 is not fully known. For example, the optimum types of specimens to collect and when during the cours e of infection these specimens are most likely to contain detectable viral RNA m ay not be known.This test has not been Food and Drug Administration (FDA) cleare d or approved and has been authorized by FDA under an Emergency Use Authorizatio n (EUA). The test is only authorized for the duration of the declaration that ci rcumstances exist justifying the authorization of emergency use of in vitro diag nostic tests for detection and/or diagnosis of SARS-CoV-2 under section 564(b) o f the Act, 21 U.S.C. section 360bbb-3(b)(1), unless the authorization is termina arben or revoked sooner. [facility] are certified under the C linical Laboratory Improvement Amendments of 1988 (CLIA), 42 U.S.C. section 263a , to perform high complexity tests.Testing performed by [facility] [id number] [place], [place] [phone] Director: Yuri Perry M.D.CLTIFFANY # [id number] [facility] Fluoroscopic procedure less than one hour rigxkvgj8678-10-95 13:20:00* Test Item Value Reference Range Interpretation Comments Coronavirus (PCR) (test code = Coronavirus (PCR)) NOT DETECTED NOTD ETECTED SARS-COV-2 (COVID19), HIGHRISK, RT-PCRNegative results do not preclude SARS-CoV- 2 infection and should not be used as the sole basis for patient management deci sions. Negative results must be combined with clinical observations, patient his tory, and epidemiological information. Optimum specimen types and timing for pea k viral levels during infections caused by SARS-CoV-2 have not been determined. Collection of multiple specimens ot types of specimens may be necessary to detec t virus. Improper specimen collection and handling, sequence variability under p rimers/probes, or organism present below the limit of detection may lead to fals e negative results. Positive and negative predictive values of testing are highl y dependent on prevalance. False negative test results are more likely when prev alence is high.The expected result is negative (not detected).The SARS-CoV-2 zeenat t is intended for the qualitative detection of nucleic acid from SARS-CoV-2 in n asopharyngeal and oropharyngeal swab samples from patients who meet COVID-19 cli nical and or epidemiological criteria. For lower respiratory tract specimens, th e assay is submitted for authoriztion by FDA under an Emergency Use Authorizatio n (EUA). Testing methodology is real time RT-PCR. If received as separate collec tion devices, nasopharygeal and oropharyngeal specimens are combined for analysi s. Additional specimens may be split to a separate accession for analysi and rep orting as this test includes a single unit of service.Test results must be corre lated with clinical presentation and evaluated in the context of other laborator y and epidemiologic data. Test performance can be affected because the epidemiol ogy and clinical spectrum of infection caused by SARS-CoV-2 is not fully known. For example, the optimum types of specimens to collect and when during the cours e of infection these specimens are most likely to contain detectable viral RNA m ay not be known.This test has not been Food and Drug Administration (FDA) cleare d or approved and has been authorized by FDA under an Emergency Use Authorizatio n (EUA). The test is only authorized for the duration of the declaration that ci rcumstances exist justifying the authorization of emergency use of in vitro diag nostic tests for detection and/or diagnosis of SARS-CoV-2 under section 564(b) o f the Act, 21 U.S.C. section 360bbb-3(b)(1), unless the authorization is termina arebn or revoked sooner. [facility] are certified under the [facility] [place] Laboratory Improvement Amendments of 1988 (CLIA), 42 U.S.C. section 263a , to perform high complexity tests.Testing performed by [facility] [address] [phone] Director: Yuri Perry M.D.CLIA # [id number] [facility] Capillary blood glucose measurement by glucometer (mass/volume)2019-07-24 11:15:00* Test Item Value Reference Range Interpretation Comments Bedside Glucose (test code = 60189-3) 145 70-120 Meter ID: [id number] [facility]als of [facility] CampusBlood leukocytes automated count (number/volume)2019-07-24 06:10:00* Test Item Value Reference Range Interpretation Comments White Blood Count (test code = 6690-2) 6.43 4.8-10.8 [facility]Blood erythrocytes automated count (number/volume)2019-07-24 06:10:00* Test Item Value Reference Range Interpretation Comments Red Blood Count (test code = 789-8) 3.29 4.3-5.7 [facility] CampusBlood hemoglobin measurement (moles/volume)2019-07-24 06:10:00* Test Item Value Reference Range Interpretation Comments Hemoglobin (test code = 52917-5) 9.4 14.0-18.0 [facility] CampusAutomated blood hematocrit (volume fraction)2019-07-24 06:10:00* Test Item Value Reference Range Interpretation Comments Hematocrit (test code = 4544-3) 29.7 38.2-49.6 [facility] CampusAutomated erythrocyte mean corpuscular rbartd4093-23-23 06:10:00* Test Item Value Reference Range Interpretation Comments Mean Corpuscular Volume (test code = 787-2) 90.3 81-99 [facility] CampusAutomated erythrocyte mean corpuscular hemoglobin (mass per erythrocyte)2019-07-24 06:10:00* Test Item Value Reference Range Interpretation Comments Mean Corpuscular Hemoglobin (test code = 785-6) 28.6 28-32 [facility] CampusAutomated erythrocyte mean corpuscular hemoglobin concentration measurement (mass/volume)2019-07-24 06:10:00* Test Item Value Reference Range Interpretation Comments Mean Corpuscular Hemoglobin Concent (test code = 786-4) 31.6 31-35 [facility] CampusRDW BgfLf-Xve3253-05-26 06:10:00* Test Item Value Reference Range Interpretation Comments Red Cell Distribution Width (test code = 27324-0) 14.5 11.7 -14.4 [facility] CampusAutomated blood platelet count (count/volume)2019-07-24 06:10:00* Test Item Value Reference Range Interpretation Comments Platelet Count (test code = 777-3) 132 140-360 [facility] CampusAutomated blood segmented neutrophil count as percentage of total vwirojeigh8265-19-20 06:10:00* Test Item Value Reference Range Interpretation Comments Neutrophils (%) (Auto) (test code = 38247-9) 61.3 38.7-80.0 [facility] CampusAutomated blood lymphocyte count as percentage ot total guccnughnd5016-36-48 06:10:00* Test Item Value Reference Range Interpretation Comments Lymphocytes (%) (Auto) (test code = 736-9) 24.9 18.0-39.1 [facility] CampusAutomated blood monocyte count as percentage of total zcpbmlkhwc8341-58-48 06:10:00* Test Item Value Reference Range Interpretation Comments Monocytes (%) (Auto) (test code = 5905-5) 10.0 4.4-11.3 [facility] CampusAutomated blood eosinophil count as percentage of total rezaaeolzq1353-40-95 06:10:00* Test Item Value Reference Range Interpretation Comments Eosinophils (%) (Auto) (test code = 713-8) 2.6 0.0-6.0 [facility] CampusAutomated blood basophil count as percentage of total eyuevdmjsk9285-11-13 06:10:00* Test Item Value Reference Range Interpretation Comments Basophils (%) (Auto) (test code = 706-2) 0.9 0.0-1.0 [facility] CampusFluoroscopic procedure less than one hour fexgkazk4433-00-16 06:10:00* Test Item Value Reference Range Interpretation Comments IM GRANULOCYTES % (test code = IM GRANULOCYTES %) 0.3 0.0- 1.0 [facility] CampusAutomated blood neutrophil count 2019-07-24 06:10:00* Test Item Value Reference Range Interpretation Comments Neutrophils # (Auto) (test code = 751-8) 3.9 2.1-6.9 [facility] CampusBlood lymphocytes count (number/volume) 2019-07-24 06:10:00* Test Item Value Reference Range Interpretation Comments Lymphocytes # (Auto) (test code = 97808-0) 1.6 1.0-3.2 [facility] CampusBlood monocytes automated count (number/volume)2019-07-24 06:10:00* Test Item Value Reference Range Interpretation Comments Monocytes # (Auto) (test code = 742-7) 0.6 0.2-0.8 [facility] CampusAutomated blood eosinophil count 2019-07-24 06:10:00* Test Item Value Reference Range Interpretation Comments Eosinophils # (Auto) (test code = 711-2) 0.2 0.0-0.4 [facility] CampusAutomated blood basophil count (count/volume)2019-07-24 06:10:00* Test Item Value Reference Range Interpretation Comments Basophils # (Auto) (test code = 704-7) 0.1 0.0-0.1 [facility] CampusFluoroscopic procedure less than one hour qorarvmx6466-85-39 06:10:00* Test Item Value Reference Range Interpretation Comments Absolute Immature Granulocyte (auto (zeenat t code = Absolute Immature Granulocyte (auto) 0.02 0-0.1 [facility] sodium [facility] (moles/volume)2019-07-24 06:10:00* Test Item Value Reference Range Interpretation Comments Sodium Level (test code = 2951-2) 136 136-145 [facility]um [facility] plasma potassium measurement (moles/volume)2019-07-24 06:10:00* Test Item Value Reference Range Interpretation Comments Potassium Level (test code = 2823-3) 3.7 3.5-5.1 [facility] plasma chloride measurement (moles/volume)2019-07-24 06:10:00* Test Item Value Reference Range Interpretation Comments Chloride Level (test code = 2075-0) 106 98-107 [facility]erum or plasma carbon dioxide, total measurement (moles/volume)2019-07-24 06:10:00* Test Item Value Reference Range Interpretation Comments Carbon Dioxide Level (test code = 2028-9) 23 22-29 [facility]um or plasma anion hra8894-41-04 06:10:00* Test Item Value Reference Range Interpretation Comments Anion Gap (test code = 67054-1) 10.7 8-16 [facility]um or plasma urea nitrogen measurement (mass/volume)2019-07-24 06:10:00* Test Item Value Reference Range Interpretation Comments Blood Urea Nitrogen (test code = 3094-0) 13 7-26 [facility] or plasma creatinine measurement (mass/volume)2019-07-24 06:10:00* Test Item Value Reference Range Interpretation Comments Creatinine (test code = 2160-0) 1.24 0.72-1.25 [facility]um or plasma urea nitrogen/creatinine mass azcvz8558-41-68 06:10:00* Test Item Value Reference Range Interpretation Comments BUN/Creatinine Ratio (test code = 3097-3) 10 6-25 [facility] CampusEstimated glomerular filtration rate (GFR) allwyqsykfuwd5212-73-05 06:10:00* Test Item Value Reference Range Interpretation Comments Estimat Glomerular Filtration Rate (test code = 686601225) > 60 >60 Ranges were taken from the National Kidney Disease Education Program and the [facility] Kid[facility] Foundation literature.Reference ranges:60 or greater: Eizorl00-38 ( for 3 consecutive months): Chronic kidney disease 15 or less: Kidney failureThe Hospitals of [facility] CampusGlucose tqjicgzxebr7337-85-07 06:10:00* Test Item Value Reference Range Interpretation Comments Glucose Level (test code = ZOP5312) 148 74-118 [facility] or plasma calcium measurement (mass/volume)2019-07-24 06:10:00* Test Item Value Reference Range Interpretation Comments Calcium Level (test code = 16239-6) 8.6 8.4-10.2 [facility]um or plasma total bilirubin measurement (mass/volume)2019-07-24 06:10:00* Test Item Value Reference Range Interpretation Comments Total Bilirubin (test code = 1975-2) 0.5 0.2-1.2 [facility] CampusFluoroscopic procedure less than one hour zyoogdul2599-71-51 06:10:00* Test Item Value Reference Range Interpretation Comments Aspartate Amino Transf (AST/SGOT) (test code = Aspartate Amino Transf (AST/SGOT)) 14 5-34 [facility]erum or plasma alanine aminotransferase measurement (enzymatic activity/volume)2019-07-24 06:10:00* Test Item Value Reference Range Interpretation Comments Alanine Aminotransferase (ALT/SGPT) (test code = 1742-6) 15 0-55 [facility]erum or plasma protein measurement (mass/volume)2019-07-24 06:10:00* Test Item Value Reference Range Interpretation Comments Total Protein (test code = 2885-2) 6.2 6.5-8.1 [facility] or plasma albumin measurement (mass/volume)2019-07-24 06:10:00* Test Item Value Reference Range Interpretation Comments Albumin (test code = 1751-7) 3.1 3.5-5.0 [facility] CampusPlasma globulin measurement (mass/volume) 2019-07-24 06:10:00* Test Item Value Reference Range Interpretation Comments Globulin (test code = 46891-0) 3.1 2.3-3.5 [facility]um or plasma albumin/globulin mass mrfcc6290-81-37 06:10:00* Test Item Value Reference Range Interpretation Comments Albumin/Globulin Ratio (test code = 1759-0) 1.0 0.8-2.0 [facility] or plasma alkaline phosphatase measurement (enzymatic activity/volume)2019-07-24 06:10:00* Test Item Value Reference Range Interpretation Comments Alkaline Phosphatase (test code = 6768-6) 106 40-150 [facility]erum or plasma amylase measurement (enzymatic activity/volume)2019-07-24 06:10:00* Test Item Value Reference Range Interpretation Comments Amylase Level (test code = 1798-8) 36 25-125 [facility]erum or plasma lipase measurement (enzymatic activity/volume)2019-07-24 06:10:00* Test Item Value Reference Range Interpretation Comments Lipase (test code = 3040-3) < 4 8-78 [facility] CampusBlood leukocytes automated count (number/volume)2019-07-24 06:10:00* Test Item Value Reference Range Interpretation Comments White Blood Count (test code = 6690-2) 6.43 4.8-10.8 [facility] CampusBlood erythrocytes automated count (number/volume)2019-07-24 06:10:00* Test Item Value Reference Range Interpretation Comments Red Blood Count (test code = 789-8) 3.29 4.3-5.7 [facility] CampusBlood hemoglobin measurement (moles/volume)2019-07-24 06:10:00* Test Item Value Reference Range Interpretation Comments Hemoglobin (test code = 82912-5) 9.4 14.0-18.0 [facility] CampusAutomated blood hematocrit (volume fraction)2019-07-24 06:10:00* Test Item Value Reference Range Interpretation Comments Hematocrit (test code = 4544-3) 29.7 38.2-49.6 [facility] CampusAutomated erythrocyte mean corpuscular yshmri1236-26-71 06:10:00* Test Item Value Reference Range Interpretation Comments Mean Corpuscular Volume (test code = 787-2) 90.3 81-99 [facility] CampusAutomated erythrocyte mean corpuscular hemoglobin (mass per erythrocyte)2019-07-24 06:10:00* Test Item Value Reference Range Interpretation Comments Mean Corpuscular Hemoglobin (test code = 785-6) 28.6 28-32 [facility] CampusAutomated erythrocyte mean corpuscular hemoglobin concentration measurement (mass/volume)2019-07-24 06:10:00* Test Item Value Reference Range Interpretation Comments Mean Corpuscular Hemoglobin Concent (test code = 786-4) 31.6 31-35 [facility] CampusRDW AbxHc-Gmr3817-52-26 06:10:00* Test Item Value Reference Range Interpretation Comments Red Cell Distribution Width (test code = 22958-3) 14.5 11.7 -14.4 [facility] CampusAutomated blood platelet count (count/volume)2019-07-24 06:10:00* Test Item Value Reference Range Interpretation Comments Platelet Count (test code = 777-3) 132 140-360 [facility] CampusAutomated blood segmented neutrophil count as percentage of total falcggkqct3445-99-30 06:10:00* Test Item Value Reference Range Interpretation Comments Neutrophils (%) (Auto) (test code = 15852-0) 61.3 38.7-80.0 [facility] CampusAutomated blood lymphocyte count as percentage ot total afyipyrvdf6872-50-10 06:10:00* Test Item Value Reference Range Interpretation Comments Lymphocytes (%) (Auto) (test code = 736-9) 24.9 18.0-39.1 [facility] CampusAutomated blood monocyte count as percentage of total nfvgqcdwnx1136-78-46 06:10:00* Test Item Value Reference Range Interpretation Comments Monocytes (%) (Auto) (test code = 5905-5) 10.0 4.4-11.3 [facility] CampusAutomated blood eosinophil count as percentage of total owohwzakev0234-78-22 06:10:00* Test Item Value Reference Range Interpretation Comments Eosinophils (%) (Auto) (test code = 713-8) 2.6 0.0-6.0 [facility] CampusAutomated blood basophil count as percentage of total pevyttavzw7037-43-49 06:10:00* Test Item Value Reference Range Interpretation Comments Basophils (%) (Auto) (test code = 706-2) 0.9 0.0-1.0 [facility] CampusFluoroscopic procedure less than one hour tsfoasiv5003-76-22 06:10:00* Test Item Value Reference Range Interpretation Comments IM GRANULOCYTES % (test code = IM GRANULOCYTES %) 0.3 0.0- 1.0 [facility] CampusAutomated blood neutrophil count 2019-07-24 06:10:00* Test Item Value Reference Range Interpretation Comments Neutrophils # (Auto) (test code = 751-8) 3.9 2.1-6.9 [facility] CampusBlood lymphocytes count (number/volume) 2019-07-24 06:10:00* Test Item Value Reference Range Interpretation Comments Lymphocytes # (Auto) (test code = 38691-6) 1.6 1.0-3.2 [facility] CampusBl[facility] monocytes automated count (number/volume)2019-07-24 06:10:00* Test Item Value Reference Range Interpretation Comments Monocytes # (Auto) (test code = 742-7) 0.6 0.2-0.8 [facility] CampusAutomated blood eosinophil count 2019-07-24 06:10:00* Test Item Value Reference Range Interpretation Comments Eosinophils # (Auto) (test code = 711-2) 0.2 0.0-0.4 [facility] CampusAutomated blood basophil count (count/volume)2019-07-24 06:10:00* Test Item Value Reference Range Interpretation Comments Basophils # (Auto) (test code = 704-7) 0.1 0.0-0.1 [facility] CampusFluoroscopic procedure less than one hour fzaipjyc1498-82-09 06:10:00* Test Item Value Reference Range Interpretation Comments Absolute Immature Granulocyte (auto (zeenat t code = Absolute Immature Granulocyte (auto) 0.02 0-0.1 [facility]er[facility] or plasma sodium measurement (moles/volume)2019-07-24 06:10:00* Test Item Value Reference Range Interpretation Comments Sodium Level (test code = 2951-2) 136 136-145 [facility]erum or plasma potassium measurement (moles/volume)2019-07-24 06:10:00* Test Item Value Reference Range Interpretation Comments Potassium Level (test code = 2823-3) 3.7 3.5-5.1 [facility]er[facility] or plasma chloride measurement (moles/volume)2019-07-24 06:10:00* Test Item Value Reference Range Interpretation Comments Chloride Level (test code = 2075-0) 106 98-107 [facility]erum or plasma carbon dioxide, total measurement (moles/volume)2019-07-24 06:10:00* Test Item Value Reference Range Interpretation Comments Carbon Dioxide Level (test code = 2028-9) 23 22-29 [facility]erum or plasma anion ibn6671-13-40 06:10:00* Test Item Value Reference Range Interpretation Comments Anion Gap (test code = 34154-3) 10.7 8-16 [facility] or plasma urea nitrogen measurement (mass/volume)2019-07-24 06:10:00* Test Item Value Reference Range Interpretation Comments Blood Urea Nitrogen (test code = 3094-0) 13 7-26 [facility]er[facility] or plasma creatinine measurement (mass/volume)2019-07-24 06:10:00* Test Item Value Reference Range Interpretation Comments Creatinine (test code = 2160-0) 1.24 0.72-1.25 [facility]erum or plasma urea nitrogen/creatinine mass gkqyv3717-09-20 06:10:00* Test Item Value Reference Range Interpretation Comments BUN/Creatinine Ratio (test code = 3097-3) 10 6-25 [facility] CampusEstimated glomerular filtration rate (GFR) xfxjppukkeahb4377-53-14 06:10:00* Test Item Value Reference Range Interpretation Comments Estimat Glomerular Filtration Rate (test code = 272736562) > 60 >60 Ranges were taken from the National Kidney Disease Education Program and the [facility] Kidney Foundation literature.Reference ranges:60 or greater: Incjuy52-07 ( for 3 consecutive months): Chronic kidney disease 15 or less: Kidney failureThe Hospitals of [facility] CampusGlucose sucsbdkrgtd5749-30-47 06:10:00* Test Item Value Reference Range Interpretation Comments Glucose Level (test code = BPC0095) 148 74-118 [facility] or plasma calcium measurement (mass/volume)2019-07-24 06:10:00* Test Item Value Reference Range Interpretation Comments Calcium Level (test code = 56157-5) 8.6 8.4-10.2 [facility]erum or plasma total bilirubin measurement (mass/volume)2019-07-24 06:10:00* Test Item Value Reference Range Interpretation Comments Total Bilirubin (test code = 1975-2) 0.5 0.2-1.2 [facility] CampusFluoroscopic procedure less than one hour hwgfdblo1474-02-94 06:10:00* Test Item Value Reference Range Interpretation Comments Aspartate Amino Transf (AST/SGOT) (test code = Aspartate Amino Transf (AST/SGOT)) 14 5-34 [facility]erum or plasma alanine aminotransferase measurement (enzymatic activity/volume)2019-07-24 06:10:00* Test Item Value Reference Range Interpretation Comments Alanine Aminotransferase (ALT/SGPT) (test code = 1742-6) 15 0-55 [facility]erum or plasma protein measurement (mass/volume)2019-07-24 06:10:00* Test Item Value Reference Range Interpretation Comments Total Protein (test code = 2885-2) 6.2 6.5-8.1 [facility]erum or plasma albumin measurement (mass/volume)2019-07-24 06:10:00* Test Item Value Reference Range Interpretation Comments Albumin (test code = 1751-7) 3.1 3.5-5.0 [facility] CampusPlasma globulin measurement (mass/volume) 2019-07-24 06:10:00* Test Item Value Reference Range Interpretation Comments Globulin (test code = 77036-1) 3.1 2.3-3.5 [facility]erum or plasma albumin/globulin mass jnmgl2902-60-63 06:10:00* Test Item Value Reference Range Interpretation Comments Albumin/Globulin Ratio (test code = 1759-0) 1.0 0.8-2.0 [facility]er[facility] or plasma alkaline phosphatase measurement (enzymatic activity/volume)2019-07-24 06:10:00* Test Item Value Reference Range Interpretation Comments Alkaline Phosphatase (test code = 6768-6) 106 40-150 [facility]erum or plasma amylase measurement (enzymatic activity/volume)2019-07-24 06:10:00* Test Item Value Reference Range Interpretation Comments Amylase Level (test code = 1798-8) 36 25-125 [facility]erum or plasma lipase measurement (enzymatic activity/volume)2019-07-24 06:10:00* Test Item Value Reference Range Interpretation Comments Lipase (test code = 3040-3) < 4 8-78 [facility] CampusBlood leukocytes automated count (number/volume)2019-07-24 06:10:00* Test Item Value Reference Range Interpretation Comments White Blood Count (test code = 6690-2) 6.43 4.8-10.8 [facility] CampusBlood erythrocytes automated count (number/volume)2019-07-24 06:10:00* Test Item Value Reference Range Interpretation Comments Red Blood Count (test code = 789-8) 3.29 4.3-5.7 [facility] CampusBlood hemoglobin measurement (moles/volume)2019-07-24 06:10:00* Test Item Value Reference Range Interpretation Comments Hemoglobin (test code = 64925-9) 9.4 14.0-18.0 [facility] CampusAutomated blood hematocrit (volume fraction)2019-07-24 06:10:00* Test Item Value Reference Range Interpretation Comments Hematocrit (test code = 4544-3) 29.7 38.2-49.6 [facility] CampusAutomated erythrocyte mean corpuscular gmexuq4447-41-41 06:10:00* Test Item Value Reference Range Interpretation Comments Mean Corpuscular Volume (test code = 787-2) 90.3 81-99 [facility] CampusAutomated erythrocyte mean corpuscular hemoglobin (mass per erythrocyte)2019-07-24 06:10:00* Test Item Value Reference Range Interpretation Comments Mean Corpuscular Hemoglobin (test code = 785-6) 28.6 28-32 [facility] CampusAutomated erythrocyte mean corpuscular hemoglobin concentration measurement (mass/volume)2019-07-24 06:10:00* Test Item Value Reference Range Interpretation Comments Mean Corpuscular Hemoglobin Concent (test code = 786-4) 31.6 31-35 [facility] CampusRDW GqmCf-Zds6408-27-26 06:10:00* Test Item Value Reference Range Interpretation Comments Red Cell Distribution Width (test code = 52560-7) 14.5 11.7 -14.4 [facility] CampusAutomated blood platelet count (count/volume)2019-07-24 06:10:00* Test Item Value Reference Range Interpretation Comments Platelet Count (test code = 777-3) 132 140-360 [facility] CampusAutomated blood segmented neutrophil count as percentage of total breayajtvz5679-50-77 06:10:00* Test Item Value Reference Range Interpretation Comments Neutrophils (%) (Auto) (test code = 97762-5) 61.3 38.7-80.0 [facility] CampusAutomated blood lymphocyte count as percentage ot total efervgyocw6993-82-54 06:10:00* Test Item Value Reference Range Interpretation Comments Lymphocytes (%) (Auto) (test code = 736-9) 24.9 18.0-39.1 [facility] CampusAutomated blood monocyte count as percentage of total wsxkainadv4398-72-05 06:10:00* Test Item Value Reference Range Interpretation Comments Monocytes (%) (Auto) (test code = 5905-5) 10.0 4.4-11.3 [facility] CampusAutomated blood eosinophil count as percentage of total vvsrbdsobu3441-39-32 06:10:00* Test Item Value Reference Range Interpretation Comments Eosinophils (%) (Auto) (test code = 713-8) 2.6 0.0-6.0 [facility] CampusAutomated blood basophil count as percentage of total jlbitxjzxh0982-64-08 06:10:00* Test Item Value Reference Range Interpretation Comments Basophils (%) (Auto) (test code = 706-2) 0.9 0.0-1.0 [facility] CampusFluoroscopic procedure less than one hour fuimepcl8832-55-29 06:10:00* Test Item Value Reference Range Interpretation Comments IM GRANULOCYTES % (test code = IM GRANULOCYTES %) 0.3 0.0- 1.0 [facility] CampusAutomated blood neutrophil count 2019-07-24 06:10:00* Test Item Value Reference Range Interpretation Comments Neutrophils # (Auto) (test code = 751-8) 3.9 2.1-6.9 [facility] CampusBlood lymphocytes count (number/volume) 2019-07-24 06:10:00* Test Item Value Reference Range Interpretation Comments Lymphocytes # (Auto) (test code = 72208-8) 1.6 1.0-3.2 [facility]Bl[facility] monocytes automated count (number/volume)2019-07-24 06:10:00* Test Item Value Reference Range Interpretation Comments Monocytes # (Auto) (test code = 742-7) 0.6 0.2-0.8 [facility] CampusAutomated blood eosinophil count 2019-07-24 06:10:00* Test Item Value Reference Range Interpretation Comments Eosinophils # (Auto) (test code = 711-2) 0.2 0.0-0.4 [facility] CampusAutomated blood basophil count (count/volume)2019-07-24 06:10:00* Test Item Value Reference Range Interpretation Comments Basophils # (Auto) (test code = 704-7) 0.1 0.0-0.1 [facility] CampusFluoroscopic procedure less than one hour nsnyoras7211-56-59 06:10:00* Test Item Value Reference Range Interpretation Comments Absolute Immature Granulocyte (auto (zeenat t code = Absolute Immature Granulocyte (auto) 0.02 0-0.1 [facility] plasma sodium measurement (moles/volume)2019-07-24 06:10:00* Test Item Value Reference Range Interpretation Comments Sodium Level (test code = 2951-2) 136 136-145 [facility] Pasoerum or plasma potassium measurement (moles/volume)2019-07-24 06:10:00* Test Item Value Reference Range Interpretation Comments Potassium Level (test code = 2823-3) 3.7 3.5-5.1 [facility] Pasoerum or plasma chloride measurement (moles/volume)2019-07-24 06:10:00* Test Item Value Reference Range Interpretation Comments Chloride Level (test code = 2075-0) 106 98-107 [facility] Pasoerum or plasma carbon dioxide, total measurement (moles/volume)2019-07-24 06:10:00* Test Item Value Reference Range Interpretation Comments Carbon Dioxide Level (test code = 2028-9) 23 22-29 [facility] Paso[facility]um or plasma anion hfe8831-88-63 06:10:00* Test Item Value Reference Range Interpretation Comments Anion Gap (test code = 42652-1) 10.7 8-16 [facility] Pasoerum or plasma urea nitrogen measurement (mass/volume)2019-07-24 06:10:00* Test Item Value Reference Range Interpretation Comments Blood Urea Nitrogen (test code = 3094-0) 13 7-26 [facility] Pasoerum or plasma creatinine measurement (mass/volume)2019-07-24 06:10:00* Test Item Value Reference Range Interpretation Comments Creatinine (test code = 2160-0) 1.24 0.72-1.25 [facility] Pasoerum or plasma urea nitrogen/creatinine mass csmbd4473-27-70 06:10:00* Test Item Value Reference Range Interpretation Comments BUN/Creatinine Ratio (test code = 3097-3) 10 6-25 [facility] CampusEstimated glomerular filtration rate (GFR) qzjhygtvglaec6686-71-99 06:10:00* Test Item Value Reference Range Interpretation Comments Estimat Glomerular Filtration Rate (test code = 772772794) > 60 >60 Ranges were taken from the National Kidney Disease Education Program and the [facility] Kidney Foundation literature.Reference ranges:60 or greater: Ksqzsi70-82 ( for 3 consecutive months): Chronic kidney disease 15 or less: Kidney failureThe Hospitals of [facility] CampusGlucose gtdiareujxy8475-13-64 06:10:00* Test Item Value Reference Range Interpretation Comments Glucose Level (test code = CIS5353) 148 74-118 [facility]um or plasma calcium measurement (mass/volume)2019-07-24 06:10:00* Test Item Value Reference Range Interpretation Comments Calcium Level (test code = 82216-9) 8.6 8.4-10.2 [facility] Pasoerum or plasma total bilirubin measurement (mass/volume)2019-07-24 06:10:00* Test Item Value Reference Range Interpretation Comments Total Bilirubin (test code = 1975-2) 0.5 0.2-1.2 [facility] CampusFluoroscopic procedure less than one hour fbiwikjy7595-26-49 06:10:00* Test Item Value Reference Range Interpretation Comments Aspartate Amino Transf (AST/SGOT) (test code = Aspartate Amino Transf (AST/SGOT)) 14 5-34 [facility] Pasoerum or plasma alanine aminotransferase measurement (enzymatic activity/volume)2019-07-24 06:10:00* Test Item Value Reference Range Interpretation Comments Alanine Aminotransferase (ALT/SGPT) (test code = 1742-6) 15 0-55 [facility]erum or plasma protein measurement (mass/volume)2019-07-24 06:10:00* Test Item Value Reference Range Interpretation Comments Total Protein (test code = 2885-2) 6.2 6.5-8.1 [facility] Pasoerum or plasma albumin measurement (mass/volume)2019-07-24 06:10:00* Test Item Value Reference Range Interpretation Comments Albumin (test code = 1751-7) 3.1 3.5-5.0 [facility] CampusPlasma globulin measurement (mass/volume) 2019-07-24 06:10:00* Test Item Value Reference Range Interpretation Comments Globulin (test code = 41675-6) 3.1 2.3-3.5 [facility]erum or plasma albumin/globulin mass fuwkx1953-65-75 06:10:00* Test Item Value Reference Range Interpretation Comments Albumin/Globulin Ratio (test code = 1759-0) 1.0 0.8-2.0 [facility]erum or plasma alkaline phosphatase measurement (enzymatic activity/volume)2019-07-24 06:10:00* Test Item Value Reference Range Interpretation Comments Alkaline Phosphatase (test code = 6768-6) 106 40-150 [facility]erum or plasma amylase measurement (enzymatic activity/volume)2019-07-24 06:10:00* Test Item Value Reference Range Interpretation Comments Amylase Level (test code = 1798-8) 36 25-125 [facility]erum or plasma lipase measurement (enzymatic activity/volume)2019-07-24 06:10:00* Test Item Value Reference Range Interpretation Comments Lipase (test code = 3040-3) < 4 8-78 [facility]erum or plasma amylase measurement (enzymatic activity/volume)2019-07-24 06:10:00* Test Item Value Reference Range Interpretation Comments Amylase Level (test code = 1798-8) 36 25-125 [facility]erum or plasma lipase measurement (enzymatic activity/volume)2019-07-24 06:10:00* Test Item Value Reference Range Interpretation Comments Lipase (test code = 3040-3) < 4 8-78 [facility]erum or plasma amylase measurement (enzymatic activity/volume)2019-07-24 06:10:00* Test Item Value Reference Range Interpretation Comments Amylase Level (test code = 1798-8) 36 25-125 [facility]erum or plasma lipase measurement (enzymatic activity/volume)2019-07-24 06:10:00* Test Item Value Reference Range Interpretation Comments Lipase (test code = 3040-3) < 4 8-78 [facility] CampusFluoroscopic procedure less than one hour sjgwondh2574-77-68 12:20:00* Test Item Value Reference Range Interpretation Comments Hemoglobin A1c Percent (test code = Hemoglobin A1c Percent) 8.4 4.0-7.0 [facility] CampusFluoroscopic procedure less than one hour ibgdvoch7697-41-99 12:20:00* Test Item Value Reference Range Interpretation Comments Lactic Acid Level (test code = Lactic Acid Level) 0.8 0.5- 2.0 [facility] CampusFluoroscopic procedure less than one hour hbwfsnea9789-76-63 12:20:00* Test Item Value Reference Range Interpretation Comments Hemoglobin A1c Percent (test code = Hemoglobin A1c Percent) 8.4 4.0-7.0 [facility] CampusFluoroscopic procedure less than one hour bzimvayy2628-38-83 12:20:00* Test Item Value Reference Range Interpretation Comments Lactic Acid Level (test code = Lactic Acid Level) 0.8 0.5- 2.0 [facility] CampusFluoroscopic procedure less than one hour duvcqhmt1746-97-21 12:20:00* Test Item Value Reference Range Interpretation Comments Hemoglobin A1c Percent (test code = Hemoglobin A1c Percent) 8.4 4.0-7.0 [facility] CampusFluoroscopic procedure less than one hour athodhca4958-70-03 12:20:00* Test Item Value Reference Range Interpretation Comments Lactic Acid Level (test code = Lactic Acid Level) 0.8 0.5- 2.0 [facility] CampusFluoroscopic procedure less than one hour coqkgqfk7408-04-57 12:20:00* Test Item Value Reference Range Interpretation Comments Hemoglobin A1c Percent (test code = Hemoglobin A1c Percent) 8.4 4.0-7.0 [facility] CampusFluoroscopic procedure less than one hour pgwdyrqt0796-67-86 12:20:00* Test Item Value Reference Range Interpretation Comments Lactic Acid Level (test code = Lactic Acid Level) 0.8 0.5- 2.0 [facility] CampusFluoroscopic procedure less than one hour ixvtrobt2792-17-36 12:20:00* Test Item Value Reference Range Interpretation Comments Hemoglobin A1c Percent (test code = Hemoglobin A1c Percent) 8.4 4.0-7.0 [facility] CampusFluoroscopic procedure less than one hour ldtzvcny1571-83-50 12:20:00* Test Item Value Reference Range Interpretation Comments Lactic Acid Level (test code = Lactic Acid Level) 0.8 0.5- 2.0 [facility] CampusFluoroscopic procedure less than one hour aczwytfo6395-26-28 12:20:00* Test Item Value Reference Range Interpretation Comments Hemoglobin A1c Percent (test code = Hemoglobin A1c Percent) 8.4 4.0-7.0 [facility] CampusFluoroscopic procedure less than one hour htousmwt2531-59-15 12:20:00* Test Item Value Reference Range Interpretation Comments Hemoglobin A1c Percent (test code = Hemoglobin A1c Percent) 8.4 4.0-7.0 [facility] FKYESRSH-EOMP9913-53-25 06:46:00 [facility] [address] [address] Patient Name: BREE LINDSAY MR #: [id number] : 1975 Age/Sex: 43/M Req #: [id number] Adm Physician: Ordered by: NEIL PEREZ MD Report #: [id number] [facility] Room/Bed: Procedure: [id number] HOPD/CT ABD/PEL WO CONTRAST-HOPD Exam Date: 07/23/19 [...] and TUBES: None. LOWER THORAX: Mild hypoattenuation o f the blood pool in relation to the [...] on 07/23/19657 Transcribed By: PAULA on 07/23/19 58 COPY TO: NEIL PEREZ MD Bacterial blood iwlcale6787-89-49 06:44:00* Test Item Value Reference Range Interpretation Comments Blood Culture (test code = 600-7) STAPHYLOCOCCUS SP COAG NEG [facility] CampusBacterial blood uvkxyzn9262-28-66 06:44:00* Test Item Value Reference Range Interpretation Comments Blood Culture (test code = 600-7) STAPHYLOCOCCUS SP COAG NEG [facility] CampusBacterial blood yzvnugr9769-48-87 06:44:00* Test Item Value Reference Range Interpretation Comments Blood Culture (test code = 600-7) STAPHYLOCOCCUS SP COAG NEG [facility] CampusBacterial blood wiouyag9424-88-47 06:44:00* Test Item Value Reference Range Interpretation Comments Blood Culture (test code = 600-7) STAPHYLOCOCCUS SP COAG NEG [facility] CampusBacteria blood aqgyvmg1415-04-18 06:44:00* Test Item Value Reference Range Interpretation Comments Blood Culture (test code = 600-7) STAPHYLOCOCCUS SP COAG NEG [facility] CampusBacterial blood jjxbfiz0858-58-81 06:44:00* Test Item Value Reference Range Interpretation Comments Blood Culture (test code = 600-7) STAPHYLOCOCCUS SP COAG NEG [facility] CampusBacteria blood eqbjsrf1482-31-13 06:44:00* Test Item Value Reference Range Interpretation Comments Blood Culture (test code = 600-7) STAPHYLOCOCCUS SP COAG NEG [facility] CampusCXR 1 VE - GZGJ8986-13-27 06:44:00 [facility] [address] [address] Patient Name: BREE LINDSAY MR #: [id number] : 1975 Age/Sex: 43/M Req #: [id number] Adm Physician: Ordered by: NEIL PEREZ MD Report #: [id number] [facility] Room/Bed: Procedure: [id number] [facility] Date: Exam Time: REPORT STATUS: Signed EXAMINATION: CX R 1 W - [facility] INDICATION: DKA. COMPARISON: Chest radiograph 11/22. FINDINGS: [...] 07/23/19645 COPY TO: NEIL PEREZ MD Blood jctccpr7315-05-68 06:05:00* Test Item Value Reference Range Interpretation Comments Blood Culture (test code = 05723057) NO GROWTH AFTER 5 DAYS, [facility] lsfhagt5365-04-43 06:05:00* Test Item Value Reference Range Interpretation Comments Blood Culture (test code = 04479286) NO GROWTH AFTER 5 DAYS, FINAL [facility]PORT [facility] hrayhid7917-00-07 06:05:00* Test Item Value Reference Range Interpretation Comments Blood Culture (test code = 38575653) NO GROWTH AFTER 5 DAYS, FINAL [facility]PORT [facility] mdmdyfy4967-98-79 06:05:00* Test Item Value Reference Range Interpretation Comments Blood Culture (test code = 36593973) NO GROWTH AFTER 5 DAYS, FINAL [facility]PORT [facility] eemjlqx6173-32-48 06:05:00* Test Item Value Reference Range Interpretation Comments Blood Culture (test code = 77732174) NO GROWTH AFTER 5 DAYS, FINAL REPORT [facility] mzdmxzq4978-89-21 06:05:00* Test Item Value Reference Range Interpretation Comments Blood Culture (test code = 27461405) NO GROWTH AFTER 5 DAYS, FINAL REPORT [facility] CampusBedside Suwdder3633-62-15 08:12:00* Test Item Value Reference Range Interpretation Comments Bedside Glucose (test code = 48938-6) 120 70-120 Meter ID: [id number] [facility] El Pasoodium Level 2019-07-10 07:06:00* Test Item Value Reference Range Interpretation Comments Sodium Level (test code = 2951-2) 139 136-145 [facility] CampusPotassium Kumon3273-99-59 07:06:00* Test Item Value Reference Range Interpretation Comments Potassium Level (test code = 2823-3) 3.3 3.5-5.1 L [facility] CampusChloride Pqwjg8484-37-27 07:06:00* Test Item Value Reference Range Interpretation Comments Chloride Level (test code = 2075-0) 102 98-107 [facility] CampusCarbon Dioxide Jwnzl4778-01-00 07:06:00* Test Item Value Reference Range Interpretation Comments Carbon Dioxide Level (test code = 2028-9) 28 22-29 [facility] CampusAnion Bez2455-14-19 07:06:00* Test Item Value Reference Range Interpretation Comments Anion Gap (test code = 63825-4) 12.3 8-16 [facility] CampusBlood Urea Ogaephgq4544-86-19 07:06:00* Test Item Value Reference Range Interpretation Comments Blood Urea Nitrogen (test code = 3094-0) 31 7-26 H [facility] CampusCreatinine2020-04-12 07:06:00* Test Item Value Reference Range Interpretation Comments Creatinine (test code = 2160-0) 1.55 0.72-1.25 H [facility] CampusBUN/Creatinine Gabdi3537-95-63 07:06:00* Test Item Value Reference Range Interpretation Comments BUN/Creatinine Ratio (test code = 3097-3) 20 6-25 [facility] CampusEstimat Glomerular Filtration Rate 2019-07-10 07:06:00* Test Item Value Reference Range Interpretation Comments Estimat Glomerular Filtration Rate (test code = 053014510) 60 >60 Ranges were taken from the National Kidney Disease Education Program and the [facility] Kidney Foundation literature.Reference ranges:60 or greater: Hcjlik77-75 ( for 3 consecutive months): Chronic kidney disease 15 or less: Kidney failureThe Hospitals of [facility] CampusGlucose Vexha7549-97-20 07:06:00* Test Item Value Reference Range Interpretation Comments Glucose Level (test code = DOW2869) 92 74-118 [facility] CampusCalcium Nnvag6024-91-60 07:06:00* Test Item Value Reference Range Interpretation Comments Calcium Level (test code = 76839-3) 8.1 8.4-10.2 L [facility] CampusMagnesium Qhhmq2978-51-91 06:53:00* Test Item Value Reference Range Interpretation Comments Magnesium Level (test code = 62864-3) 1.8 1.3-2.1 [facility] CampusWhite Blood Gutsl3817-25-79 06:24:00* Test Item Value Reference Range Interpretation Comments White Blood Count (test code = 6690-2) 8.09 4.8-10.8 [facility] CampusRed Blood Utvuk7265-90-32 06:24:00* Test Item Value Reference Range Interpretation Comments Red Blood Count (test code = 789-8) 3.66 4.3-5.7 L [facility] CampusHemoglobin2020-04-12 06:24:00* Test Item Value Reference Range Interpretation Comments Hemoglobin (test code = 38251-9) 10.1 14.0-18.0 L [facility] CampusHematocrit2020-04-12 06:24:00* Test Item Value Reference Range Interpretation Comments Hematocrit (test code = 4544-3) 32.4 38.2-49.6 L [facility] CampusMean Corpuscular Wvnxxa0751-98-10 06:24:00* Test Item Value Reference Range Interpretation Comments Mean Corpuscular Volume (test code = 787-2) 88.5 81-99 [facility] CampusMean Corpuscular Usztuezyvc7180-01-29 06:24:00* Test Item Value Reference Range Interpretation Comments Mean Corpuscular Hemoglobin (test code = 785-6) 27.6 28-32 L [facility] CampusMean Corpuscular Hemoglobin Concent 2019-07-10 06:24:00* Test Item Value Reference Range Interpretation Comments Mean Corpuscular Hemoglobin Concent (test code = 786-4) 31.2 31-35 [facility] CampusRed Cell Distribution Wszke0220-40-57 06:24:00* Test Item Value Reference Range Interpretation Comments Red Cell Distribution Width (test code = 29038-8) 13.8 11.7 -14.4 [facility] CampusPlatelet Qabtc6270-02-58 06:24:00* Test Item Value Reference Range Interpretation Comments Platelet Count (test code = 777-3) 191 140-360 [facility] CampusNeutrophils (%) (Auto)2019-07-10 06:24:00 * Test Item Value Reference Range Interpretation Comments Neutrophils (%) (Auto) (test code = 35616-3) 61.6 38.7-80.0 [facility] CampusLymphocytes (%) (Auto)2019-07-10 06:24:00 * Test Item Value Reference Range Interpretation Comments Lymphocytes (%) (Auto) (test code = 736-9) 26.7 18.0-39.1 [facility] CampusMonocytes (%) (Auto)2019-07-10 06:24:00* Test Item Value Reference Range Interpretation Comments Monocytes (%) (Auto) (test code = 5905-5) 10.3 4.4-11.3 [facility] CampusEosinophils (%) (Auto)2019-07-10 06:24:00 * Test Item Value Reference Range Interpretation Comments Eosinophils (%) (Auto) (test code = 713-8) 0.6 0.0-6.0 [facility] CampusBasophils (%) (Auto)2019-07-10 06:24:00* Test Item Value Reference Range Interpretation Comments Basophils (%) (Auto) (test code = 706-2) 0.6 0.0-1.0 [facility] CampusIM GRANULOCYTES %2019-07-10 06:24:00* Test Item Value Reference Range Interpretation Comments IM GRANULOCYTES % (test code = IM GRANULOCYTES %) 0.2 0.0- 1.0 [facility] CampusNeutrophils # (Auto)2019-07-10 06:24:00* Test Item Value Reference Range Interpretation Comments Neutrophils # (Auto) (test code = 751-8) 5.0 2.1-6.9 [facility] CampusLymphocytes # (Auto)2019-07-10 06:24:00* Test Item Value Reference Range Interpretation Comments Lymphocytes # (Auto) (test code = 34172-7) 2.2 1.0-3.2 [facility] CampusMonocytes # (Auto)2019-07-10 06:24:00* Test Item Value Reference Range Interpretation Comments Monocytes # (Auto) (test code = 742-7) 0.8 0.2-0.8 [facility] CampusEosinophils # (Auto)2019-07-10 06:24:00* Test Item Value Reference Range Interpretation Comments Eosinophils # (Auto) (test code = 711-2) 0.1 0.0-0.4 [facility] CampusBasophils # (Auto)2019-07-10 06:24:00* Test Item Value Reference Range Interpretation Comments Basophils # (Auto) (test code = 704-7) 0.1 0.0-0.1 [facility] CampusAbsolute Immature Granulocyte (auto 2019-07-10 06:24:00* Test Item Value Reference Range Interpretation Comments Absolute Immature Granulocyte (auto (zeenat t code = Absolute Immature Granulocyte (auto) 0.02 0-0.1 [facility] Pasoerum or plasma magnesium measurement (mass/volume)2019-07-10 05:32:00* Test Item Value Reference Range Interpretation Comments Magnesium Level (test code = 41460-7) 1.8 1.3-2.1 [facility] Pasoerum or plasma magnesium measurement (mass/volume)2019-07-10 05:32:00* Test Item Value Reference Range Interpretation Comments Magnesium Level (test code = 03774-8) 1.8 1.3-2.1 [facility] Pasoerum or plasma magnesium measurement (mass/volume)2019-07-10 05:32:00* Test Item Value Reference Range Interpretation Comments Magnesium Level (test code = 20289-3) 1.8 1.3-2.1 [facility] Pasoerum or plasma magnesium measurement (mass/volume)2019-07-10 05:32:00* Test Item Value Reference Range Interpretation Comments Magnesium Level (test code = 46249-1) 1.8 1.3-2.1 [facility] Pasoerum or plasma magnesium measurement (mass/volume)2019-07-10 05:32:00* Test Item Value Reference Range Interpretation Comments Magnesium Level (test code = 36553-6) 1.8 1.3-2.1 [facility] Pasoerum or plasma magnesium measurement (mass/volume)2019-07-10 05:32:00* Test Item Value Reference Range Interpretation Comments Magnesium Level (test code = 18526-8) 1.8 1.3-2.1 [facility] Pasoerum or plasma magnesium measurement (mass/volume)2019-07-10 05:32:00* Test Item Value Reference Range Interpretation Comments Magnesium Level (test code = 28428-8) 1.8 1.3-2.1 [facility] 08:55:00* Test Item Value Reference Range Interpretation Comments GLUBED (test code = GLUBED) 122 mg/dL 74-106 H Performed by certified vacuum applicator operator at [facility] [id number] 08:43:00* Test Item Value Reference Range Interpretation Comments GLUBED (test code = GLUBED) 140 mg/dL 74-106 H Performed by certified vacuum applicator operator at [facility] - XR SHOULDER 1 V [id number] 13:41:00 FAX: Jg Astudillo MD [phone] [place]: St: REG FAX: Riley Zavala DO [phone] Name: BREE LINDSAY [facility] : 1975 Age/S: 43/M [address] [place] [address] Blvd Unit #: [id number] Loc: [place] X [address] Phys: Jg Astudillo MD Acct: [id number] Dis Date: Status: REG CLI PHONE #: [phone] Exam Date: 03/02/2019 1333 FAX #: [phone] Reason: PICC PLACEMENT EXAMS: CPT CODE: [id number] XR SHOULDER 1 V LT 10792 1 VIEW LEFT SHOULDER HISTORY: PICC line pl acement.. Left upper extremity PICC line present. Catheter tip pr ojects over the level of the inferior 3rd of the SVC. END IMPRESSION SL: [id number] at 1341 Reported and sig lizette by: Yusuf Burgos M.D. CC: Jg Astudillo MD; Zak Beckman DO Technologist: SHANTE Field) Trnscrd Date/Time/By: 03/02/2019 (1579) : By: Jaclyn Orig Print D/T: S: 03/02/2019 (2337) PAGE 1 Signed Report [id number] 08:06:00* Test Item Value Reference Range Interpretation Comments GLUBED (test code = GLUBED) 224 mg/dL 74-106 H Performed by certified vacuum applicator operator at [facility] [id number] 22:57:00* Test Item Value Reference Range Interpretation Comments GLUBED (test code = GLUBED) 62 mg/dL 74-106 L Performed by certified vacuum applicator operator at [facility] [id number] 18:14:00* Test Item Value Reference Range Interpretation Comments GLUBED (test code = GLUBED) 158 mg/dL 74-106 H Performed by certified vacuum applicator operator at [facility] [id number] 11:43:00* Test Item Value Reference Range Interpretation Comments GLUBED (test code = GLUBED) 123 mg/dL 74-106 H Performed by certified vacuum applicator operator at [facility] BASIC METABOLIC [id number] 11:04:00* Test Item Value Reference Range Interpretation [...] CA) 8.5 mg/dL 8.5-10.1 N BASIC METABOLIC [id number] 10:55:00* Test Item Value Reference Range Interpretation [...] code = CA) mg/dL 8.5-10.1 CBC W/AUTO [id number] 10:13:00* Test Item Value Reference Range Interpretation [...] code = NRBC#) 0.00 K/mm3 0.0-0.1 N [id number] 08:19:00* Test Item Value Reference Range Interpretation Comments GLUBED (test code = GLUBED) 81 mg/dL 74-106 N Performed by certified vacuum applicator operator at [facility] [id number] 22:30:00* Test Item Value Reference Range Interpretation Comments GLUBED (test code = GLUBED) 243 mg/dL 74-106 H Performed by certified vacuum applicator operator at [facility] [id number] 17:17:00* Test Item Value Reference Range Interpretation Comments GLUBED (test code = GLUBED) 91 mg/dL 74-106 N Performed by certified vacuum applicator operator at [facility] BLOOD UREA [id number] 13:49:00* Test Item Value Reference Range Interpretation Comments BLOOD UREA NITROGEN (test code = BUN) 8 mg/dL 7-18 N 2 PHELBS GONE UP AND TRIED TO DRAW BLOOD PT SAID COME BACKINFORMED PAIGE Parker81Coleen [facility] 02/19/19 1037 [id number] 13:49:00* Test Item Value Reference Range Interpretation Comments CREATININE (test code = CREAT) 0.90 mg/dL 0.7-1.3 N 2 PHELBS GONE UP AND TRIED TO DRAW BLOOD PT SAID COME BACKINFORMED PAIGE LIU E481Coleen [facility] 02/19/19 1037 CBC W/AUTO [id number] 13:02:00* Test Item Value Reference Range Interpretation [...] PT TO COME BACK LATER NOTIFIED PAIGE LUCERO.KP211/23/ [id number] 11:50:00* Test Item Value Reference Range Interpretation Comments GLUBED (test code = GLUBED) 147 mg/dL 74-106 H Performed by certified vacuum applicator operator at [facility] [id number] 10:37:00* Test Item Value Reference Range Interpretation Comments GLUBED (test code = GLUBED) 97 mg/dL 74-106 N Performed by certified vacuum applicator operator at [facility] [id number] 21:43:00* Test Item Value Reference Range Interpretation Comments GLUBED (test code = GLUBED) 162 mg/dL 74-106 H Performed by certified vacuum applicator operator at [facility] [id number] 16:06:00* Test Item Value Reference Range Interpretation Comments GLUBED (test code = GLUBED) 98 mg/dL 74-106 N Performed by certified vacuum applicator operator at [facility] - XR CHEST 1 [id number] 14:36:00 FAX: Olegario Diaz MD [phone] [place]: St: ADM FAX: Iris Liao [phone] FAX: Raphael ShelleyRiley [phone] Name: BREE LINDSAY [facility] : 1975 Age/S: 43/M [address] Unit #: [id number] Loc: V.3070 [place] [address] Phys: Iris Liao NP Acct: [id number] Dis Date: Status: ADM IN ONE #: [phone] Exam Date: 02/18/2019 1339 FAX #: [phone] Reason: PICC TIP CONFIRMATION EXAMS: CPT CODE: [id number] XR CHEST 1 V 44272 REASON FOR EXAM: PICC TIP CONFIRMATION Exam Order Date: 02/18/2019 12:37 PM Ordering MSammie: Iris Liao NP PROCEDURE: - XR CHEST 1 V COMPARISON: Frontal chest x-ray February 13, 2019 FINDINGS: Right upper extremity PICC terminates in the ca voatrial junction. There is an opacity in the left lung base that partly obscures the left hemidiaphragm. Remainder of the lungs are clear. Cardiomediastinal silhouette is normal in size for technique. The mediastinal contours are within normal limits. Musculoskelet al structures are within normal limits. The visualized upper abdom en is within normal limits. IMPRESSION: Right up per extremity PICC terminates in the cavoatrial junction. Left lung base opacity may represent any combination of pleural effusion, atelectasis, and consolidation. This is a new finding from the prior exam. Location: [facility] Electronically Signed by Mulugeta Espinoza MD on at 1436 Reported and signed by: Mulugeta Espinoza MD CC: Olegario Diaz MD; Iris Liao [employer]; Riley Beckman DO Technologist: Ngozi LYON(R); Lucie Martinez(R) Trnscrd Date/Time/By: 01/29 (1436) : By: [email or web address] Orig Print D/T: S: 02/18/2019 (5310) PAGE 1 Signed Report [id number] 12:20:00* Test Item Value Reference Range Interpretation Comments GLUBED (test code = GLUBED) 141 mg/dL 74-106 H Performed by certified vacuum applicator operator at [facility] [id number] 07:15:00* Test Item Value Reference Range Interpretation Comments GLUBED (test code = GLUBED) 129 mg/dL 74-106 H Performed by certified vacuum applicator operator at [facility] [id number] 00:21:00* Test Item Value Reference Range Interpretation Comments GLUBED (test code = GLUBED) 166 mg/dL 74-106 H Performed by certified vacuum applicator operator at [facility] [id number] 20:50:00* Test Item Value Reference Range Interpretation Comments GLUBED (test code = GLUBED) 194 mg/dL 74-106 H Performed by certified vacuum applicator operator at [facility] [id number] 18:19:00* Test Item Value Reference Range Interpretation Comments VANCOMYCIN (test code = VANCO) 25.9 UG/ML 5.0-45.0 N [id number] 16:41:00* Test Item Value Reference Range Interpretation Comments GLUBED (test code = GLUBED) 223 mg/dL 74-106 H Performed by certified vacuum applicator operator at [facility] [id number] 13:22:00* Test Item Value Reference Range Interpretation Comments GLUBED (test code = GLUBED) 95 mg/dL 74-106 N Performed by certified vacuum applicator operator at [facility] [id number] 13:22:00* Test Item Value Reference Range Interpretation Comments GLUBED (test code = GLUBED) 61 mg/dL 74-106 L Performed by certified vacuum applicator operator at [facility] [id number] 13:22:00* Test Item Value Reference Range Interpretation Comments GLUBED (test code = GLUBED) 32 mg/dL 74-106 LL Test performed as P.O.C. by nursing staff.Performed by certified vacuum applicator operator at [facility] [id number] 13:22:00* Test Item Value Reference Range Interpretation Comments GLUBED (test code = GLUBED) 28 mg/dL 74-106 LL Test performed as P.O.C. by nursing staff.Performed by certified vacuum applicator operator [facility] Not[facility]~ [id number] 11:50:00* Test Item Value Reference Range Interpretation Comments GLUBED (test code = GLUBED) 104 mg/dL 74-106 N Performed by certified vacuum applicator operator at [facility] CBC W/MANUAL [id number] 09:27:00* Test Item Value Reference Range Interpretation [...] code = IMMAT) 0 % 0-0 N [id number] 07:51:00* Test Item Value Reference Range Interpretation Comments GLUBED (test code = GLUBED) 244 mg/dL 74-106 H Performed by certified vacuum applicator operator at [facility] BASIC METABOLIC [id number] 07:23:00* Test Item Value Reference Range Interpretation [...] CA) 7.9 mg/dL 8.5-10.1 L BASIC METABOLIC [id number] 07:13:00* Test Item Value Reference Range Interpretation [...] code = CA) mg/dL 8.5-10.1 CBC W/MANUAL [id number] 07:10:00* Test Item Value Reference Range Interpretation [...] MORPHOLOGY (test code = PLTMORPH) CBC W/MANUAL [id number] 07:10:00* Test Item Value Reference Range Interpretation [...] MORPHOLOGY (test code = PLTMORPH) CBC W/MANUAL [id number] 07:10:00* Test Item Value Reference Range Interpretation [...] MORPHOLOGY (test code = PLTMORPH) CBC W/MANUAL [id number] 07:09:00* Test Item Value Reference Range Interpretation [...] MORPHOLOGY (test code = PLTMORPH) CBC W/MANUAL [id number] 07:09:00* Test Item Value Reference Range Interpretation [...] MORPHOLOGY (test code = PLTMORPH) SED RATE [id number] 21:42:00* Test Item Value Reference Range Interpretation Comments SED RATE WESTERGREN (test code = SEDW) 76 mm/hr 0-15 H SED [id number] 21:42:00* Test Item Value Reference Range Interpretation Comments SED RATE (test code = SEDW) 76 mm/hr 0-15 H WINTROBE METHOD: NORMAL RANGE FOR MEN: 0-9 MM/HR WOMAN: 0-20 MM/HR [id number] 20:54:00* Test Item Value Reference Range Interpretation Comments GLUBED (test code = GLUBED) 345 mg/dL 74-106 H Performed by certified vacuum applicator operator at [facility] [id number] 16:36:00* Test Item Value Reference Range Interpretation Comments GLUBED (test code = GLUBED) 37 mg/dL 74-106 LL Performed by certified vacuum applicator operator at [facility] [id number] 16:30:00* Test Item Value Reference Range Interpretation Comments GLUBED (test code = GLUBED) 94 mg/dL 74-106 N Performed by certified vacuum applicator operator at [facility] [id number] 12:04:00* Test Item Value Reference Range Interpretation Comments GLUBED (test code = GLUBED) 236 mg/dL 74-106 H Performed by certified vacuum applicator operator at [facility] CBC W/MANUAL [id number] 08:49:00* Test Item Value Reference Range Interpretation [...] IMMAT) 0 % 0-0 N BASIC METABOLIC [id number] 08:29:00* Test Item Value Reference Range Interpretation [...] CA) 7.9 mg/dL 8.5-10.1 L CBC W/MANUAL [id number] 08:09:00* Test Item Value Reference Range Interpretation [...] MORPHOLOGY (test code = PLTMORPH) CBC W/MANUAL [id number] 08:09:00* Test Item Value Reference Range Interpretation [...] MORPHOLOGY (test code = PLTMORPH) CBC W/MANUAL [id number] 08:09:00* Test Item Value Reference Range Interpretation [...] MORPHOLOGY (test code = PLTMORPH) CBC W/MANUAL [id number] 08:09:00* Test Item Value Reference Range Interpretation [...] MORPHOLOGY (test code = PLTMORPH) CBC W/MANUAL [id number] 08:09:00* Test Item Value Reference Range Interpretation [...] PLTEST) PLATELET MORPHOLOGY (test code = PLTMORPH) [id number] 07:33:00* Test Item Value Reference Range Interpretation Comments GLUBED (test code = GLUBED) 315 mg/dL 74-106 H Performed by certified vacuum applicator operator at [facility] [id number] 19:56:00* Test Item Value Reference Range Interpretation Comments GLUBED (test code = GLUBED) 90 mg/dL 74-106 N Performed by certified vacuum applicator operator at [facility] [id number] 19:07:00* Test Item Value Reference Range Interpretation Comments GLUBED (test code = GLUBED) 107 mg/dL 74-106 H Performed by certified vacuum applicator operator at [facility] [id number] 19:07:00* Test Item Value Reference Range Interpretation Comments GLUBED (test code = GLUBED) 49 mg/dL 74-106 LL Performed by certified vacuum applicator operator [facility]~ [id number] 17:50:00* Test Item Value Reference Range Interpretation Comments POTASSIUM (test code = K) 3.0 mmol/L 3.5-5.1 L RE SULT VERIFIED BY REPEAT ANALYSIS [id number] 17:08:00* Test Item Value Reference Range Interpretation Comments GLUBED (test code = GLUBED) 66 mg/dL 74-106 L Performed by certified vacuum applicator operator at [facility] [id number] 16:57:00* Test Item Value Reference Range Interpretation Comments GLUBED (test code = GLUBED) 76 mg/dL 74-106 N Performed by certified vacuum applicator operator at [facility] [id number] 13:11:00* Test Item Value Reference Range Interpretation Comments POTASSIUM (test code = K) 5.2 mmol/L 3.5-5.1 H [id number] 11:49:00* Test Item Value Reference Range Interpretation Comments GLUBED (test code = GLUBED) 81 mg/dL 74-106 N Performed by certified vacuum applicator operator at [facility] [id number] 09:39:00* Test Item Value Reference Range Interpretation Comments GLUBED (test code = GLUBED) 78 mg/dL 74-106 N Performed by certified vacuum applicator operator at [facility] - MRI LOW EXT W/O CONT [id number] 09:36:00 FAX: Olegario Diaz MD [phone] [place]: St: ADM FAX: Heavenly Kerr DPM [phone] FAX: Raphael Riley Beckman [phone] Name: DAISHABREE Mendoza [facility] : 1975 Age/S: 43/M [address] [facility] Unit #: [id number] Loc: V.3070 [place] [address] Phys: Heavenly Null DPM Acct: [id number] Dis Date: Status: ADM IN ONE #: [phone] Exam Date: 02/15/2019 0859 FAX #: [phone] Reason: cellulitis EXAMS: CPT CODE: [id number] MR [place] [address] HISTORY: Cellu litis TECHNIQUE: Sagittal T1, sagittal [...] By: [email or web address] Orig Print D/T: S: 02/15/2019 (5154) PAGE 1 Signed Report [id number] 07:22:00* Test Item Value Reference Range Interpretation Comments GLUBED (test code = GLUBED) 57 mg/dL 74-106 L Performed by certified vacuum applicator operator at [facility] BASIC METABOLIC [id number] 05:15:00* Test Item Value Reference Range Interpretation Comments SODIUM (test code = NA) 136 mmol/L 136-145 N POTASSIUM (test code = K) 2.7 mmol/L 3.5-5.1 LL Re sults called to [id number] by VERIK 02/15/19 0515Critical results verified and read back [...] CA) 8.3 mg/dL 8.5-10.1 L C REACTIVE [id number] 04:21:00* Test Item Value Reference Range Interpretation Comments C REACTIVE PROTEIN (test code = CRP) 27.10 mg/dL 0-0.3 H CBC W/MANUAL [id number] 04:05:00* Test Item Value Reference Range Interpretation [...] IMMAT) 0 % 0-0 N CBC W/MANUAL [id number] 03:30:00* Test Item Value Reference Range Interpretation [...] PLTEST) PLATELET MORPHOLOGY (test code = PLTMORPH) [id number] 20:26:00* Test Item Value Reference Range Interpretation Comments GLUBED (test code = GLUBED) 151 mg/dL 74-106 H Performed by certified vacuum applicator operator at [facility] [id number] 17:12:00* Test Item Value Reference Range Interpretation Comments GLUBED (test code = GLUBED) 124 mg/dL 74-106 H Performed by certified vacuum applicator operator at [facility] [id number] 17:07:00* Test Item Value Reference Range Interpretation Comments GLUBED (test code = GLUBED) 81 mg/dL 74-106 N Performed by certified vacuum applicator operator at [facility] [id number] 12:13:00* Test Item Value Reference Range Interpretation Comments GLUBED (test code = GLUBED) 95 mg/dL 74-106 N Performed by certified vacuum applicator operator at [facility] CBC W/MANUAL [id number] 08:15:00* Test Item Value Reference Range Interpretation [...] code = IMMAT) 0 % 0-0 N [id number] 07:18:00* Test Item Value Reference Range Interpretation Comments GLUBED (test code = GLUBED) 195 mg/dL 74-106 H Performed by certified vacuum applicator operator at [facility] BASIC METABOLIC [id number] 07:16:00* Test Item Value Reference Range Interpretation [...] code = CA) 8.4 mg/dL 8.5-10.1 L [id number] 07:16:00* Test Item Value Reference Range Interpretation Comments MAGNESIUM (test code = MAG) 1.7 mg/dL 1.8-2.4 L CBC W/MANUAL [id number] 06:58:00* Test Item Value Reference Range Interpretation [...] MORPHOLOGY (test code = PLTMORPH) CBC W/MANUAL [id number] 06:58:00* Test Item Value Reference Range Interpretation [...] MORPHOLOGY (test code = PLTMORPH) CBC W/MANUAL [id number] 06:58:00* Test Item Value Reference Range Interpretation [...] MORPHOLOGY (test code = PLTMORPH) CBC W/MANUAL [id number] 06:58:00* Test Item Value Reference Range Interpretation [...] MORPHOLOGY (test code = PLTMORPH) CBC W/MANUAL [id number] 06:58:00* Test Item Value Reference Range Interpretation [...] MORPHOLOGY (test code = PLTMORPH) BASIC METABOLIC [id number] 06:56:00* Test Item Value Reference Range Interpretation [...] CALCIUM (test code = CA) mg/dL 8.5-10.1 [id number] 06:56:00* Test Item Value Reference Range Interpretation Comments MAGNESIUM (test code = MAG) mg/dL 1.8-2.4 [id number] 20:42:00* Test Item Value Reference Range Interpretation Comments GLUBED (test code = GLUBED) 261 mg/dL 74-106 H Performed by certified vacuum applicator operator at [facility] CBC W/MANUAL [id number] 10:55:00* Test Item Value Reference Range Interpretation [...] MORPHOLOGY (test code = PLTMORPH) NORMAL URINALYSIS [id number] 10:38:00* Test Item Value Reference Range Interpretation [...] Clean Catch- XR FOOT 3 + V [id number] 10:33:00 Name: BREE LINDSAY [facility] : 1975 Age/S:43 /M [address] [facility] Unit#:[id number] Loc: [place] [address] Phys: Chandan Cage MD Dis Date: PHONE #: [phone] Status: REG ER FAX #: [phone] Exam Date: 02/13/2019 Re ason: left foot swelling EXAMS: CPT CODE: [id number] XR FOOT 3 + V LT [address] CLINICAL HISTORY: left foot swelling TECHNIQUE: AP, [...] but no acute underlying bony injury. Location: [facility] at 1033 Reported and signed by: Mulugeta Espinoza MD CC: Tracy Cage MD; Riley Beckman DO Technologist: Stone Sadler RT(R)(CT) Trnsc rpt Data: 02/13/2019 (1033) [id number].[id number] Orig Print D/T: S : 02/13/2019 (1039) PAGE 1 Signed Report LACTIC [id number] 10:28:00* Test Item Value Reference Range Interpretation Comments LACTIC ACID (test code = LACT) 1.6 MMOL/L 0.4-1.9 N BASIC METABOLIC [id number] 10:28:00* Test Item Value Reference Range Interpretation [...] CA) 8.7 mg/dL 8.4-10.2 N HEPATIC FUNCTION [id number] 10:28:00* Test Item Value Reference Range Interpretation [...] code = ALKP) 120 U/L 38-126 N [id number] 10:28:00* Test Item Value Reference Range Interpretation Comments TROPONIN-I (test code = TROPI) <0.015 ng/mL 0.00-0.056 N URINALYSIS [id number] 10:20:00* Test Item Value Reference Range Interpretation [...] HPF NONE Urine Source? Clean CatchBASIC METABOLIC [id number] 10:19:00* Test Item Value Reference Range Interpretation [...] CA) 8.7 mg/dL 8.4-10.2 N HEPATIC FUNCTION [id number] 10:19:00* Test Item Value Reference Range Interpretation [...] TOTAL (test code = ALKP) IUnit/L 45-117 [id number] 10:19:00* Test Item Value Reference Range Interpretation Comments TROPONIN-I (test code = TROPI) ng/mL 0-0.045 CBC W/MANUAL [id number] 10:13:00* Test Item Value Reference Range Interpretation [...] MORPHOLOGY (test code = PLTMORPH) CBC W/MANUAL [id number] 10:02:00* Test Item Value Reference Range Interpretation [...] MORPHOLOGY (test code = PLTMORPH) CBC W/MANUAL [id number] 10:02:00* Test Item Value Reference Range Interpretation [...] MORPHOLOGY (test code = PLTMORPH) CBC W/MANUAL [id number] 10:02:00* Test Item Value Reference Range Interpretation [...] MORPHOLOGY (test code = PLTMORPH) CBC W/MANUAL [id number] 10:02:00* Test Item Value Reference Range Interpretation [...] code = PLTMORPH) - XR CHEST 1 [id number] 09:56:00 Name: BREE LINDSAY [facility] : 1975 Age/S:43 /M [address] [facility] Unit#:[id number] Loc: [place] [address] Phys: Tracy Cage MD Dis Date: PHONE #: [phone] Status: REG ER FAX #: [phone] Exam Date: 02/13/2019 Reason: CODE SEPSIS EXAMS: CPT CODE: [id number] XR CHEST 1 V 09694 REASON FOR EXAM: CODE SEPSIS Exam Order Date: 02/13/2019 9:32 AM Ordering Bennie: Tracy Cage MD PROCEDURE: - XR CHEST [...] IMPRESSION: No acute cardiopulmonary process. Location: [facility] Elect ronically Signed by Mulugeta Espinoza MD on 02/13/2019 at 0956 Reported and signed by: Mulugeta Espinoza MD CC: Tracy Cage MD; Keeley Beckman DO Technologist: Stone Sadler RT(R)(CT) Trnscrpt Data: 02/13/2019 (0956) [id number] Orig Print D/T: S: 02/13/2019 (6427) PAGE 1 Signed Report [id number] 16:17:00* Test Item Value Reference Range Interpretation Comments GLUBED (test code = GLUBED) 187 mg/dL 74-106 H Performed by certified vacuum applicator operator at [facility] [id number] 11:57:00* Test Item Value Reference Range Interpretation Comments GLUBED (test code = GLUBED) 147 mg/dL 74-106 H Performed by certified vacuum applicator operator at [facility] [id number] 07:34:00* Test Item Value Reference Range Interpretation Comments GLUBED (test code = GLUBED) 110 mg/dL 74-106 H Performed by certified vacuum applicator operator at [facility] CBC W/MANUAL [id number] 05:59:00* Test Item Value Reference Range Interpretation [...] IMMAT) 0 % 0-0 N BASIC METABOLIC [id number] 05:25:00* Test Item Value Reference Range Interpretation Comments SODIUM (test code = NA) 138 mmol/L 136-145 N POTASSIUM (test code = K) 2.7 mmol/L 3.5-5.1 LL Re sults called to [id number] by DOT 02/12/19 0525Critical results verified and [...] CA) 8.4 mg/dL 8.5-10.1 L CBC W/MANUAL [id number] 05:04:00* Test Item Value Reference Range Interpretation [...] MORPHOLOGY (test code = PLTMORPH) CBC W/MANUAL [id number] 05:04:00* Test Item Value Reference Range Interpretation [...] MORPHOLOGY (test code = PLTMORPH) CBC W/MANUAL [id number] 05:04:00* Test Item Value Reference Range Interpretation [...] MORPHOLOGY (test code = PLTMORPH) CBC W/MANUAL [id number] 05:04:00* Test Item Value Reference Range Interpretation [...] MORPHOLOGY (test code = PLTMORPH) CBC W/MANUAL [id number] 05:04:00* Test Item Value Reference Range Interpretation [...] interpreted taking into account the patients history. [id number] 19:42:00* Test Item Value Reference Range Interpretation Comments GLUBED (test code = GLUBED) 131 mg/dL 74-106 H Performed by certified vacuum applicator operator at [facility] LACTIC [id number] 19:38:00* Test Item Value Reference Range Interpretation Comments LACTIC ACID (test code = LACT) 0.7 mmol/L 0.4-1.9 N [id number] 18:44:00* Test Item Value Reference Range Interpretation Comments GLUBED (test code = GLUBED) 129 mg/dL 74-106 H Performed by certified vacuum applicator operator at [facility] [id number] 16:34:00* Test Item Value Reference Range Interpretation Comments GLUBED (test code = GLUBED) 66 mg/dL 74-106 L Performed by certified vacuum applicator operator at [facility] [id number] 12:07:00* Test Item Value Reference Range Interpretation Comments GLUBED (test code = GLUBED) 285 mg/dL 74-106 H Performed by certified vacuum applicator operator at [facility] - XR CHEST 1 [id number] 08:53:00 FAX: Faith Cook MD [phone] [place]: St: ADM FAX: Raphael BeckmanMineshDylan JUNG [phone] Name: BREE LINDSAY [facility] : 1975 Age/S: 43/M [address] [facility] Unit #: [id number] Loc: V.3017 [place] [address] Phys: Faith Roy MD Acct: [id number] Dis Date: Status: ADM IN PHONE #: [phone] Exam Date: 02/11/2019 08 FAX #: [phone] Reason: Leukocytosis EXAMS: CPT CODE: [id number] XR CHEST 1 V 01440 HISTORY: Leukocytosis. COMPARISON: January 12, 2018. Location: [facility]. No acute infiltrates, effusion or congestion is noted. Mild cardiomegaly. IMPRESSION: No acute infiltrates, effusion or congestion. at 0853 Reported and signed by: Alexandr Pacheco M.D. CC: Faith Roy MD; Riley Beckman DO Technologist: BERNABE Diez Trnscrd Date/Time/By: 02/11/2019 (0853) : By: [email or web address] Orig Print D/T: S: 02/11/2019 (0856) PAGE 1 Signed Report GLUBED 2019-02-11 07:52:00* Test Item Value Reference Range Interpretation Comments GLUBED (test code = GLUBED) 293 mg/dL 74-106 H Performed by certified vacuum applicator operator at [facility] CBC W/MANUAL [id number] 06:45:00* Test Item Value Reference Range Interpretation [...] IMMAT) 0 % 0-0 N BASIC METABOLIC [id number] 06:37:00* Test Item Value Reference Range Interpretation [...] CA) 8.6 mg/dL 8.5-10.1 N BASIC METABOLIC [id number] 06:31:00* Test Item Value Reference Range Interpretation [...] code = CA) mg/dL 8.5-10.1 CBC W/MANUAL [id number] 06:18:00* Test Item Value Reference Range Interpretation [...] MORPHOLOGY (test code = PLTMORPH) CBC W/MANUAL [id number] 06:18:00* Test Item Value Reference Range Interpretation [...] MORPHOLOGY (test code = PLTMORPH) CBC W/MANUAL [id number] 06:18:00* Test Item Value Reference Range Interpretation [...] MORPHOLOGY (test code = PLTMORPH) CBC W/MANUAL [id number] 06:18:00* Test Item Value Reference Range Interpretation [...] MORPHOLOGY (test code = PLTMORPH) CBC W/MANUAL [id number] 06:18:00* Test Item Value Reference Range Interpretation [...] PLATELET MORPHOLOGY (test code = PLTMORPH) URINALYSIS [id number] 02:01:00* Test Item Value Reference Range Interpretation [...] FEW NO SPECIMEN RECEIVED IN LAB V.LAB.TS1 02/10/193Urine Source? VoidedSAMPLE TO BE COLLECTED BY NURSEDRUGS OF ABUSE SCREEN [id number] 02:01:00* Test Item Value Reference Range Interpretation [...] Source? VoidedSAMPLE TO BE COLLECTED BY NURSEURINALYSIS [id number] 01:45:00* Test Item Value Reference Range Interpretation [...] BE COLLECTED BY NURSEDRUGS OF ABUSE SCREEN [id number] 01:45:00* Test Item Value Reference Range Interpretation [...] 2143Urine Source? VoidedSAMPLE TO BE COLLECTED BY [id number] 23:31:00* Test Item Value Reference Range Interpretation Comments GLUBED (test code = GLUBED) 223 mg/dL 74-106 H Performed by certified vacuum applicator operator at [facility] [id number] 18:09:00* Test Item Value Reference Range Interpretation Comments GLUBED (test code = GLUBED) 201 mg/dL 74-106 H Performed by certified vacuum applicator operator at [facility] [id number] 11:27:00* Test Item Value Reference Range Interpretation Comments GLUBED (test code = GLUBED) 291 mg/dL 74-106 H Performed by certified vacuum applicator operator at [facility] [id number] 08:25:00* Test Item Value Reference Range Interpretation Comments GLUBED (test code = GLUBED) 288 mg/dL 74-106 H Performed by certified vacuum applicator operator at [facility] - XR ABDOMEN AP 1 [id number] 08:01:00 FAX: Bobby Self MD [place]: B St: ADM FAX: Riley Zavala DO [phone] Name: DAISHABREE [facility] : 1975 Age/S: 43/M [address] [facility] Unit #: [id number] Loc: V.3[address] [place] [address] Phys: Bobby Self MD Acct: [id number] Dis Date: Status: ADM IN PHONE #: [phone] Exam Date: 02/10/2019 0805 FAX #: [phone] Reason: abdominal pain nausea and vomiting EXAMS: CPT CODE: [id number] XR ABDOMEN AP 1 V 53030 HISTORY: abdominal pain nausea and vomiting TECHNIQUE: AP abdomen x-ray COMPARISON: 02/26/18 FINDINGS: Nonspecific nonobstructed bowel gas pattern. No intra-abdominal mass e ffect. Cholecystectomy clips. Pelvic phleboliths. Mild degenerative change s of the spine and hips. IMPRESSION: No ra diographic evidence of acute intra-abdominal process. LOCATION: LP at 0801 Reported and sig lizette by: Marsha Cueva D.O. CC: Bobby Self MD; Riley Beckman DO Technologist: RT LATA(Kelly) Trnscrd Date/Time/By: 02/10/2019 (08) : By: [email or web address] Dimitry g Print D/T: S: 02/10/2019 (0815) PAGE 1 Signed Report PROCALCITONIN (PCT) 2019-02-10 07:12:00* Test Item Value Reference Range Interpretation [...] into account the patients history. BASIC METABOLIC [id number] 00:47:00* Test Item Value Reference Range Interpretation [...] CA) 9.1 mg/dL 8.5-10.1 N HEPATIC FUNCTION [id number] 00:47:00* Test Item Value Reference Range Interpretation [...] reference range due to change in reagent. [id number] 00:47:00* Test Item Value Reference Range Interpretation Comments LIPASE (test code = LIP) < 10 U/L 73.0-393.0 L CBC W/O [id number] 00:11:00* Test Item Value Reference Range Interpretation [...] code = MPV) 9.7 fL 6.7-11.0 N [id number] 07:24:00* Test Item Value Reference Range Interpretation Comments GLUBED (test code = GLUBED) 269 mg/dL 74-106 H Performed by certified vacuum applicator operator at [facility] [id number] 20:19:00* Test Item Value Reference Range Interpretation Comments GLUBED (test code = GLUBED) 199 mg/dL 74-106 H Performed by certified vacuum applicator operator at [facility] [id number] 16:56:00* Test Item Value Reference Range Interpretation Comments GLUBED (test code = GLUBED) 153 mg/dL 74-106 H Performed by certified vacuum applicator operator at [facility] [id number] 11:42:00* Test Item Value Reference Range Interpretation Comments GLUBED (test code = GLUBED) 231 mg/dL 74-106 H Performed by certified vacuum applicator operator at [facility] [id number] 08:17:00* Test Item Value Reference Range Interpretation Comments GLUBED (test code = GLUBED) 160 mg/dL 74-106 H Performed by certified vacuum applicator operator at [facility] CBC W/AUTO [id number] 06:43:00* Test Item Value Reference Range Interpretation [...] NRBC#) 0.00 K/mm3 0.0-0.1 N BASIC METABOLIC [id number] 06:43:00* Test Item Value Reference Range Interpretation [...] CA) 8.8 mg/dL 8.5-10.1 N BASIC METABOLIC [id number] 06:26:00* Test Item Value Reference Range Interpretation [...] (test code = CA) mg/dL 8.5-10.1 URINALYSIS [id number] 23:07:00* Test Item Value Reference Range Interpretation [...] Urine Source? Clean CatchDRUGS OF ABUSE SCREEN [id number] 23:07:00* Test Item Value Reference Range Interpretation [...] NEGATIVE <300 ng/mL Urine Source? Clean CatchURINALYSIS [id number] 22:44:00* Test Item Value Reference Range Interpretation [...] Urine Source? Clean CatchDRUGS OF ABUSE SCREEN [id number] 22:44:00* Test Item Value Reference Range Interpretation [...] <300 ng/mL Urine Source? Clean CatchBASIC METABOLIC [id number] 18:12:00* Test Item Value Reference Range Interpretation [...] CA) 10.0 mg/dL 8.5-10.1 N HEPATIC FUNCTION [id number] 18:12:00* Test Item Value Reference Range Interpretation [...] reference range due to change in reagent. [id number] 18:12:00* Test Item Value Reference Range Interpretation Comments LIPASE (test code = LIP) < 10 U/L 73.0-393.0 L BASIC METABOLIC [id number] 18:04:00* Test Item Value Reference Range Interpretation [...] code = CA) mg/dL 8.5-10.1 HEPATIC FUNCTION [id number] 18:04:00* Test Item Value Reference Range Interpretation [...] TOTAL (test code = ALKP) IUnit/L 45-117 [id number] 18:04:00* Test Item Value Reference Range Interpretation Comments LIPASE (test code = LIP) U/L 73.0-393.0 CBC W/O [id number] 18:00:00* Test Item Value Reference Range Interpretation [...] code = MPV) 10.1 fL 6.7-11.0 N [id number] 17:11:00* Test Item Value Reference Range Interpretation Comments GLUBED (test code = GLUBED) 108 mg/dL 74-106 H Performed by certified vacuum applicator operator at [facility] [id number] 14:49:00 RUN DATE: 12/21/18 [facility] PAGE 1 RUN TIME: 1449 Specimen Inqui ry RUN USER: INTERFACE PATIENT: BREE LINDSAY ACCT #: [id number] LOC: [place] U #: [id number] AGE/SX: 43/M ROOM: [facility] RE12/16/18REG DR: Olegario Diaz MD : 75 BED: A DIS: 12/19/18 STATUS: DIS IN TLOC: SPEC #: [id number] RECD: 12/20/18 STATUS: SHAHRAM LUEVANO #: [id number] HUY: 12/18/18- [facility] DR: Sav Coffey MD ENTERED: 12/20/18 SP TYPE: GALLBLADD OT DR: Levi Natarajan i, MD, Shao-Chun DOORDERED: GROSS COPIES TO: Levi Lakhani MD [address] [place] [address] Sav Coffey MD [address] [place] [address] [place] [address] [place] [address] MARKERS: ABNORMAL TISSUE, GALLBL ADDER PROCEDURES: GROSS (12/21/18-1158) TISSUES: GALLBLADDER, NOS CLINICAL HISTORY COLLECTION DATE: 12/18/18 CHOLECYSTITIS FIN AL DIAGNOSIS Gallbladder, cholecystectomy: PATCHY MILD CHRONIC ACALCUL OUS CHOLECYSTITIS NEGATIVE FOR MALIGNANCY RRB/sm A 66751 CONTINUED ON NEXT PAGE RUN DATE : 12/21/18 [facility] PAGE 2 RUN TIME: 1449 Specimen Inquiry RUN USER: INTERFACE SPEC #: [id number] PATIENT: BREE LINDSAY #V [id number] (Continued) MACROSCOPIC The specimen is r eceived [...] thickness. No foc al lesions are identified. Undercutter tissue is submitted in a single violeta sette. GROSS PERFORMED AT [facility] [address] [place] [address] [phone] MICROSCOPIC All of the stains, including any controls performed, st ain appropriately. MICROSCOPIC PERFORMED AT [facility] [address] [place] [address] [phone] PERFORMING SITE Diagnosis performed at: [facility] [address] [place] [address] Signed SIGNATMARIANO E ON FILE Dino Patton MD 12/21/18 1449 END OF REPORT GLUBED 2018-12-19 11:45:00* Test Item Value Reference Range Interpretation Comments GLUBED (test code = GLUBED) 238 mg/dL 74-106 H Performed by certified vacuum applicator operator at [facility] BASIC METABOLIC [id number] 08:28:00* Test Item Value Reference Range Interpretation [...] code = CA) 8.2 mg/dL 8.5-10.1 L [id number] 08:28:00* Test Item Value Reference Range Interpretation Comments MAGNESIUM (test code = MAG) 1.5 mg/dL 1.8-2.4 L BASIC METABOLIC [id number] 08:21:00* Test Item Value Reference Range Interpretation [...] CALCIUM (test code = CA) mg/dL 8.5-10.1 [id number] 08:21:00* Test Item Value Reference Range Interpretation Comments MAGNESIUM (test code = MAG) mg/dL 1.8-2.4 CBC W/AUTO [id number] 07:56:00* Test Item Value Reference Range Interpretation [...] DIFF REQUIRED (test code = MDIFF) NO [id number] 07:38:00* Test Item Value Reference Range Interpretation Comments GLUBED (test code = GLUBED) 277 mg/dL 74-106 H Performed by certified vacuum applicator operator at [facility] [id number] 20:34:00* Test Item Value Reference Range Interpretation Comments GLUBED (test code = GLUBED) 165 mg/dL 74-106 H Performed by certified vacuum applicator operator at [facility] [id number] 19:18:00* Test Item Value Reference Range Interpretation Comments GLUBED (test code = GLUBED) 203 mg/dL 74-106 H Performed by certified vacuum applicator operator at [facility] BASIC METABOLIC [id number] 11:47:00* Test Item Value Reference Range Interpretation [...] mg/dL 8.5-10.1 L PT IN SURGERY PAIGE VGQ2555 V.LAB.KP2 12/18/18 [id number] 11:42:00* Test Item Value Reference Range Interpretation Comments GLUBED (test code = GLUBED) 360 mg/dL 74-106 H Performed by certified vacuum applicator operator at [facility] BASIC METABOLIC [id number] 11:41:00* Test Item Value Reference Range Interpretation [...] CA) mg/dL 8.5-10.1 PT IN SURGERY RN ITG7412 V.LAB.2 12/18/18 0926CBC W/AUTO [id number] 11:11:00* Test Item Value Reference Range Interpretation [...] code = MDIFF) NO PT IN SURGERY PAIGE JQY5172 V.LAB.KP2 12/18/18 [id number] 03:55:00* Test Item Value Reference Range Interpretation Comments GLUBED (test code = GLUBED) 269 mg/dL 74-106 H Performed by certified vacuum applicator operator at [facility] [id number] 23:58:00* Test Item Value Reference Range Interpretation Comments GLUBED (test code = GLUBED) 233 mg/dL 74-106 H Performed by certified vacuum applicator operator at [facility] [id number] 09:16:00* Test Item Value Reference Range Interpretation Comments GLUBED (test code = GLUBED) 179 mg/dL 74-106 H Performed by certified vacuum applicator operator at [facility] BASIC METABOLIC [id number] 06:40:00* Test Item Value Reference Range Interpretation Comments SODIUM (test code = NA) 141 mmol/L 136-145 N POTASSIUM (test code = K) 2.8 mmol/L 3.5-5.1 Norma calderon called to JVK9691 by NIKI 12/17/18 0639Critical results verified and [...] code = CA) 8.3 mg/dL 8.5-10.1 L [id number] 06:40:00* Test Item Value Reference Range Interpretation Comments MAGNESIUM (test code = MAG) 1.6 mg/dL 1.8-2.4 L B-TYPE NATRIURETIC [id number] 06:34:00* Test Item Value Reference Range Interpretation Comments B-TYPE NATRIURETIC PEPTIDE (test code = BNP) 128.51 pgram/mL 0-100 H CBC W/AUTO [id number] 05:33:00* Test Item Value Reference Range Interpretation [...] code = NRBC#) 0.00 K/mm3 0.0-0.1 N [id number] 02:55:00* Test Item Value Reference Range Interpretation Comments GLUBED (test code = GLUBED) 102 mg/dL 74-106 N Performed by certified vacuum applicator operator at [facility] [id number] 21:18:00* Test Item Value Reference Range Interpretation Comments GLUBED (test code = GLUBED) 224 mg/dL 74-106 H Performed by certified vacuum applicator operator at [facility] [id number] 16:43:00* Test Item Value Reference Range Interpretation Comments GLUBED (test code = GLUBED) 158 mg/dL 74-106 H Performed by certified vacuum applicator operator at [facility] DRUGS OF ABUSE SCREEN [id number] 14:45:00* Test Item Value Reference Range Interpretation [...] NEGATIVE <300 ng/mL DRUGS OF ABUSE SCREEN [id number] 14:24:00* Test Item Value Reference Range Interpretation [...] ng/mL - HEPA IMAG INCL GB W [id number] 14:14:00 FAX: Leia Kendrick MSN [place]: B St: ADM FAX: Bobby Self MD FAX: Riley Zavala DO [phone] Name: BREE LINDSAY [facility] : 1975 Age/S: 43/M [address] [facility] Unit #: [id number] Loc: [address] [place] [address] Phys: Leia Kendrick MSN Acct: [id number] Dis Date: Status: ADM IN ONE #: [phone] Exam Date: 12/16/2018 1412 FAX #: [phone] Reason: recurrent n/v EXAMS: CPT CODE: [id number] HUANG PA IMAG INCL GB W PHA 57381 HISTORY: recur rent n/v EXAM: NUCLEAR MEDICINE [...] DO Technologist: ESAU ASHRAF Trnscrd Date/Time/By: 12/16/2018 (1408) : By: Aden.[email or web address] 1 Orig Print D/T: S: 12/16/2018 (1325) PAGE 1 Signed Report GLUBED 2018-12-16 11:12:00* Test Item Value Reference Range Interpretation Comments GLUBED (test code = GLUBED) 133 mg/dL 74-106 H Performed by certified vacuum applicator operator at [facility] - US ABDOMEN [id number] 10:25:00 Name: BREE LINDSAY [facility] : 1975 Age/S: 43 / M [address] [facility] Unit #: [id number] Loc: [place] [address] Phys: Leia Kendrick Acct: [id number] Dis Date: Status: ADM IN PHONE #: [phone] Exam Date: 12/16/2018 0940 FAX #: [phone] Reason: n/v EXAMS: CPT CODE: [id number] US ABDOMEN COMPLETE 60744 REASON FOR EXAM: n/v EXAM ORDER DATE: [...] PAGE 1 Signed Report (CONTINUED) Name: BREE LNIDSAY [facility] : 1975 Age/S: 43 / M [address] [facility] Unit #: [id number] Loc: [place] [address] Phys: Leia Kendrick Acct: [id number] Dis Date: Status: AD M IN PHONE #: [phone] Exam Date: 12/16 FAX #: [phone] Reason: n/v EXAMS: CPT CODE: [id number] US ABDOMEN COMPLETE 76 700 <Continued> Left [...] Riley Beckman DO Technologist: NOEMY OLVERA RT(R),CATALINA Trnnvb Date/Time: 12/16/2018 (1025) t.[email or web address].RR31 Orig Print D/T: S: 12/16/2018 (1028) Probe: PAGE 2 Signed Report [id number] 07:04:00* Test Item Value Reference Range Interpretation Comments GLUBED (test code = GLUBED) 177 mg/dL 74-106 H Performed by certified vacuum applicator operator at [facility] URINALYSIS [id number] 00:25:00* Test Item Value Reference Range Interpretation [...] FEW A Urine Source? Clean CatchBASIC METABOLIC [id number] 00:22:00* Test Item Value Reference Range Interpretation [...] CA) 8.8 mg/dL 8.5-10.1 N HEPATIC FUNCTION [id number] 00:22:00* Test Item Value Reference Range Interpretation [...] reference range due to change in reagent. [id number] 00:22:00* Test Item Value Reference Range Interpretation Comments LIPASE (test code = LIP) < 10 U/L 73.0-393.0 L [id number] 00:22:00* Test Item Value Reference Range Interpretation Comments TROPONIN-I (test code = TROPI) <0.015 ng/mL 0-0.045 N BASIC METABOLIC [id number] 00:12:00* Test Item Value Reference Range Interpretation [...] code = CA) mg/dL 8.5-10.1 HEPATIC FUNCTION [id number] 00:12:00* Test Item Value Reference Range Interpretation [...] TOTAL (test code = ALKP) IUnit/L 45-117 [id number] 00:12:00* Test Item Value Reference Range Interpretation Comments LIPASE (test code = LIP) U/L 73.0-393.0 [id number] 00:12:00* Test Item Value Reference Range Interpretation Comments TROPONIN-I (test code = TROPI) ng/mL 0-0.045 CBC W/O [id number] 00:06:00* Test Item Value Reference Range Interpretation [...] MPV) 10.2 fL 6.7-11.0 N BASIC METABOLIC [id number] 08:09:00* Test Item Value Reference Range Interpretation [...] CA) 9.0 mg/dL 8.5-10.1 N HEPATIC FUNCTION [id number] 08:09:00* Test Item Value Reference Range Interpretation [...] reference range due to change in reagent. [id number] 08:09:00* Test Item Value Reference Range Interpretation Comments LIPASE (test code = LIP) < 10 U/L 73.0-393.0 L [id number] 08:09:00* Test Item Value Reference Range Interpretation Comments TROPONIN-I (test code = TROPI) <0.015 ng/mL 0-0.045 N BASIC METABOLIC [id number] 07:52:00* Test Item Value Reference Range Interpretation [...] code = CA) mg/dL 8.5-10.1 HEPATIC FUNCTION [id number] 07:52:00* Test Item Value Reference Range Interpretation [...] TOTAL (test code = ALKP) IUnit/L 45-117 [id number] 07:52:00* Test Item Value Reference Range Interpretation Comments LIPASE (test code = LIP) U/L 73.0-393.0 [id number] 07:52:00* Test Item Value Reference Range Interpretation Comments TROPONIN-I (test code = TROPI) ng/mL 0-0.045 CBC W/O [id number] 07:40:00* Test Item Value Reference Range Interpretation [...] code = MPV) 10.5 fL 6.7-11.0 N POC-Glucose [id number] 17:19:00* Test Item Value Reference Range Interpretation Comments POC-Glucose Meter (test code = 1538) 266 mg/dL 70-110 H TESTED AT [facility] [address] [facility] [address] Lab Interpretation (test code = 27445-5) [facility] [id number] 17:19:00* Test Item Value Reference Range Interpretation Comments POC-GLUCOSE METER (BEAKER) (test code = 1538) 266 mg/dL 70-110 H TESTED AT [place] [address] [facility] [address] ECG 12 [id number] 14:27:26Interface, External Ris In - 12/14/2018 2:27 PM CDTVentricular Rate 78 BPMAtrial Rate 78 BPMP-R Interval 168 msQRS Duration 80 msQ-T Interval 350 msQTC Calculation(Bazett) 399 msP [place] 52 degreesR [place] -14 degreesT [place] 35 degreesNormal sinus rhythmNormal ECGNo previous ECGs availableConfirmed by MD MEGGAN, MARCELINO ([id number]) on 12/14/2018 2:27:24 [facility] [id number] 12:17:00* Test Item Value Reference Range Interpretation Comments POC-GLUCOSE METER (BEAKER) (test code = 1538) 240 mg/dL 70-110 H TESTED AT [place] [address] [facility] [address] POCT-GLUCOSE [id number] 08:12:00* Test Item Value Reference Range Interpretation Comments POC-GLUCOSE METER (BEAKER) (test code = 1538) 184 mg/dL 70-110 H TESTED AT [place] [address] [facility] [address] Basic metabolic [id number] 06:18:00* Test Item Value Reference Range Interpretation Comments Sodium (test code = 2951-2) 139 meq/L 136-145 Potassium (test code = 2823-3) 3.2 meq/L 3.5-5.1 L Chloride (test code = 2075-0) 105 meq/L 98-107 CO2 (test code = 8-9) 28 meq/L 22-29 BUN (test code = 3094-0) 11 mg/dL 7-21 Creatinine (test code = 2160-0) 1.12 mg/dL 0.57-1.25 Glucose (test code = 2345-7) 112 mg/dL 70-105 H Calcium (test code = 61241-3) 8.7 mg/dL 8.4-10.2 EGFR (test code = 24027-6) 87 mL/min/1.73 sq m ESTIMATED GFR IS NOT ACCURATE CREATININE CLEARANCE IN PREDICTING GLOMERULAR FILTRATION RATE. ESTIMATED GFR IS NOT APPLICABLE FOR DIALYSIS PATIENTS. Lab Interpretation (test code = 44482-5) [facility] 06:18:[facility]* Test Item Value Reference Range Interpretation Comments Magnesium (test code = 26025-6) 1.6 mg/dL 1.6-2.6 Lab Interpretation (test code = 55020-4) Normal [facility] 06:18:00* Test Item Value Reference Range Interpretation Comments Phosphorus (test code = 2777-1) 2.2 mg/dL 2.3-4.7 L Lab Interpretation (test code = 08507-8) Abnormal [facility] 06:18:00* Test Item Value Reference Range Interpretation Comments PHOSPHORUS (BEAKER) (test code = 604) 2.2 mg/dL 2.3-4.7 L [id number] 06:18:00* Test Item Value Reference Range Interpretation Comments MAGNESIUM (BEAKER) (test code = 627) 1.6 mg/dL 1.6-2.6 BASIC METABOLIC [id number] 06:18:00* Test Item Value Reference Range Interpretation [...] IS NOT APPLICABLE FOR DIALYSIS PATIENTS. CBC with platelet count + automated [id number] 06:16:00* Test Item Value Reference Range Interpretation Comments WBC (test code = 6690-2) 7.5 3.5- 10.5 K/L RBC (test code = 789-8) 3.38 4.63- 6.08 M/L L MCHC (test code = 786-4) 31.5 32.3- 36.5 GM/DL L Hematocrit (test code = 4544-3) 31.1 % 40.1-51 L MCV (test code = 787-2) 92.0 fL 79-92.2 MCH (test code = 785-6) 29.0 pg 25.7-32.2 RDW (test code = 788-0) 14.1 % 11.6-14.4 Platelets (test code = 777-3) 208 150- 450 K/CU MM Discordant PLT results compared to previous results; clinical correlation required. MPV (test code = 09137-6) 10.4 fL 9.4-12.4 nRBC (test code = 413) 0 0- 0 /100 WBC % Neutros (test code = 429) 66 % % Lymphs (test code = 430) 20 % % Monos (test code = 431) 12 % % Eos (test code = 432) 1 % % Baso (test code = 437) 1 % # Neutros (test code = 670) 4.92 1.78- 5.38 K/L # Lymphs (test code = 414) 1.46 1.32- 3.57 K/L # Monos (test code = 415) 0.92 0.30- 0.82 K/L H # Eos (test code = 416) 0.10 0.04- 0.54 K/L # Baso (test code = 417) 0.07 0.01- 0.08 K/L Immature Granulocytes-Relative (test code = 2801) 0 % 0-1 Lab Interpretation (test code = 91187-7) Abnormal [facility] W/PLT COUNT & AUTO [id number] 06:16:00* Test Item Value Reference Range Interpretation [...] code = 2801) 0 % 0-1 POCT-GLUCOSE [id number] 21:15:00* Test Item Value Reference Range Interpretation Comments POC-GLUCOSE METER (BEAKER) (test code = 1538) 307 mg/dL 70-110 H Notified RN or MD Patient refused repeat test/TESTED AT [facility] [address] [facility] [address] Hemoglobin [id number] 19:48:00* Test Item Value Reference Range Interpretation Comments Hemoglobin A1C (test code = 4548-4) 8.4 % 4.3-6.1 H Lab Interpretation (test code = 38887-1) [id number] 19:48:00* Test Item Value Reference Range Interpretation Comments HEMOGLOBIN A1C (BEAKER) (test code = 368) 8.4 % 4.3-6.1 H Lipid [id number] 16:17:00* Test Item Value Reference Range Interpretation Comments Triglycerides (test code = 2571-8) 101 mg/dL Cholesterol (test code = 2093-3) 151 mg/dL HDL (test code = 2085-9) 38 mg/dL LDL Calculated (test code = 78287-6) 93 mg/dL BESS (test code = BESS) Triglyceride Reference Range : Low Risk <150 Borderline 150-199 High Risk 200-499 Very High Risk >=500 Cholesterol Reference Range: Low Risk <200 Borderline 200-239 High Risk >240 HDL Cholesterol Reference Range: Low Risk >=60 High Risk <40 LDL Cholesterol Reference Range: Optimal <100 Near Optimal 100-129 Borderline 130-159 High 160-189 Very High >=190 [facility] [id number] 16:17:00* Test Item Value Reference Range Interpretation Comments Protein, Total (test code = 2885-2) 6.9 6.0- 8.3 gm/dL Albumin (test code = 25245-1) 3.9 g/dL 3.5-5 Total Bilirubin (test code = 1974-2) 0.5 mg/dL 0.2-1.2 Bilirubin, Direct (test code = 1967-7) 0.2 mg/dL 0.1-0.5 Alkaline Phosphatase (test code = 6768-6) 80 U/L 40-150 AST (test code = 1920-8) 18 U/L 5-34 ALT (test code = 1742-6) 15 U/L 6-55 Lab Interpretation (test code = 91221-1) [facility] [id number] 16:17:00* Test Item Value Reference Range Interpretation [...] High 160-189 Very High >=190 BASIC METABOLIC [id number] 16:17:00* Test Item Value Reference Range Interpretation [...] NOT APPLICABLE FOR DIALYSIS PATIENTS. HEPATIC FUNCTION [id number] 16:17:00* Test Item Value Reference Range Interpretation [...] U/L 6-55 CBC W/PLT COUNT & AUTO [id number] 16:07:00* Test Item Value Reference Range Interpretation [...] code = 2801) 0 % 0-1 POCT-GLUCOSE [id number] 16:01:00* Test Item Value Reference Range Interpretation Comments POC-GLUCOSE METER (BEAKER) (test code = 1538) 265 mg/dL 70-110 H TESTED AT [place] [id number] [facility] [address] POCT-GLUCOSE [id number] 12:34:00* Test Item Value Reference Range Interpretation Comments POC-GLUCOSE METER (BEAKER) (test code = 1538) 271 mg/dL 70-110 H TESTED AT [address] [address] Magnesium [id number] 18:51:00* Test Item Value Reference Range Interpretation Comments Magnesium Level (test code = 49308-5) 1.8 1.3-2.1 [facility] 18:51:00* Test Item Value Reference Range Interpretation Comments Lipase (test code = 3040-3) < 4 8-78 L [facility] CampusMagnesium Jparl9024-95-88 18:51:00* Test Item Value Reference Range Interpretation Comments Magnesium Level (test code = 19052-6) 1.8 1.3-2.1 [facility] CampusLipase2019-09-15 18:51:00* Test Item Value Reference Range Interpretation Comments Lipase (test code = 3040-3) < 4 8-78 L [facility] Beevillegnesium Muwvj0511-51-05 18:51:00* Test Item Value Reference Range Interpretation Comments Magnesium Level (test code = 00421-6) 1.8 1.3-2.1 [facility] CampusLipase2019-09-15 18:51:00* Test Item Value Reference Range Interpretation Comments Lipase (test code = 3040-3) < 4 8-78 L [facility] CampusLipase2019-09-15 18:51:00* Test Item Value Reference Range Interpretation Comments Lipase (test code = 3040-3) < 4 8-78 L [facility] Wfufkhy6782-74-14 20:52:00* Test Item Value Reference Range Interpretation Comments Blood Culture (test code = 06192277) NO GROWTH AFTER 5 DAYS, FINAL REPORT [facility] [id number] 20:52:00* Test Item Value Reference Range Interpretation Comments Blood Culture (test code = 64673851) NO GROWTH AFTER 5 DAYS, FINAL REPORT [facility] Lclqyxp5835-81-16 20:52:00* Test Item Value Reference Range Interpretation Comments Blood Culture (test code = 94211969) NO GROWTH AFTER 5 DAYS, FINAL REPORT [facility] Jqrudsx2555-16-43 20:52:00* Test Item Value Reference Range Interpretation Comments Blood Culture (test code = 92084997) NO GROWTH AFTER 5 DAYS, FINAL REPORT [facility] Ywrvrlg0245-42-10 15:19:00* Test Item Value Reference Range Interpretation Comments Bedside Glucose (test code = 63603-4) 261 70-120 H Meter ID: [id number] Glucose 2018-11-25 15:19:00* Test Item Value Reference Range Interpretation Comments Bedside Glucose (test code = 15972-1) 261 70-120 H Meter ID: [id number] [facility] Glucose 2018-11-25 15:19:00* Test Item Value Reference Range Interpretation Comments Bedside Glucose (test code = 17098-7) 261 70-120 H Meter ID: [id number] [facility] Glucose 2018-11-25 15:19:00* Test Item Value Reference Range Interpretation Comments Bedside Glucose (test code = 53385-5) 261 70-120 H Meter ID: [id number] [facility]als [facility] CampusWhite Blood Count 2018-11-25 06:12:00* Test Item Value Reference Range Interpretation Comments White Blood Count (test code = 6690-2) 10.09 4.8-10.8 [facility] CampusRed Blood Bbllx2715-67-67 06:12:00* Test Item Value Reference Range Interpretation Comments Red Blood Count (test code = 789-8) 3.20 4.3-5.7 L [facility] CampusHemoglobin2019-08-29 06:12:00* Test Item Value Reference Range Interpretation Comments Hemoglobin (test code = 17711-4) 9.0 14.0-18.0 L [facility] CampusHematocrit2019-08-29 06:12:00* Test Item Value Reference Range Interpretation Comments Hematocrit (test code = 4544-3) 28.1 38.2-49.6 L [facility] CampusMean Corpuscular Obusie3055-42-28 06:12:00* Test Item Value Reference Range Interpretation Comments Mean Corpuscular Volume (test code = 787-2) 87.8 81-99 [facility] CampusMean Corpuscular Gbmcctfcha1795-59-14 06:12:00* Test Item Value Reference Range Interpretation Comments Mean Corpuscular Hemoglobin (test code = 785-6) 28.1 28-32 [facility] CampusMean Corpuscular Hemoglobin Concent 2018-11-25 06:12:00* Test Item Value Reference Range Interpretation Comments Mean Corpuscular Hemoglobin Concent (test code = 786-4) 32.0 31-35 [facility] CampusRed Cell Distribution Kjiaq5082-50-78 06:12:00* Test Item Value Reference Range Interpretation Comments Red Cell Distribution Width (test code = 20200-5) 13.7 11.7 -14.4 [facility] CampusPlatelet Wkynf0282-79-60 06:12:00* Test Item Value Reference Range Interpretation Comments Platelet Count (test code = 777-3) 185 140-360 [facility] CampusNeutrophils (%) (Auto)2018-11-25 06:12:00 * Test Item Value Reference Range Interpretation Comments Neutrophils (%) (Auto) (test code = 41533-0) 60.5 38.7-80.0 [facility] CampusLymphocytes (%) (Auto)2018-11-25 06:12:00 * Test Item Value Reference Range Interpretation Comments Lymphocytes (%) (Auto) (test code = 736-9) 24.7 18.0-39.1 [facility] CampusMonocytes (%) (Auto)2018-11-25 06:12:00* Test Item Value Reference Range Interpretation Comments Monocytes (%) (Auto) (test code = 5905-5) 12.2 4.4-11.3 H [facility] CampusEosinophils (%) (Auto)2018-11-25 06:12:00 * Test Item Value Reference Range Interpretation Comments Eosinophils (%) (Auto) (test code = 713-8) 2.0 0.0-6.0 [facility] CampusBasophils (%) (Auto)2018-11-25 06:12:00* Test Item Value Reference Range Interpretation Comments Basophils (%) (Auto) (test code = 706-2) 0.5 0.0-1.0 [facility] CampusIM GRANULOCYTES %2018-11-25 06:12:00* Test Item Value Reference Range Interpretation Comments IM GRANULOCYTES % (test code = IM GRANULOCYTES %) 0.1 0.0- 1.0 [facility] CampusNeutrophils # (Auto)2018-11-25 06:12:00* Test Item Value Reference Range Interpretation Comments Neutrophils # (Auto) (test code = 751-8) 6.1 2.1-6.9 [facility] CampusLymphocytes # (Auto)2018-11-25 06:12:00* Test Item Value Reference Range Interpretation Comments Lymphocytes # (Auto) (test code = 69709-8) 2.5 1.0-3.2 [facility] CampusMonocytes # (Auto)2018-11-25 06:12:00* Test Item Value Reference Range Interpretation Comments Monocytes # (Auto) (test code = 742-7) 1.2 0.2-0.8 H [facility] CampusEosinophils # (Auto)2018-11-25 06:12:00* Test Item Value Reference Range Interpretation Comments Eosinophils # (Auto) (test code = 711-2) 0.2 0.0-0.4 [facility] CampusBasophils # (Auto)2018-11-25 06:12:00* Test Item Value Reference Range Interpretation Comments Basophils # (Auto) (test code = 704-7) 0.1 0.0-0.1 [facility] CampusAbsolute Immature Granulocyte (auto 2018-11-25 06:12:00* Test Item Value Reference Range Interpretation Comments Absolute Immature Granulocyte (auto (zeenat t code = Absolute Immature Granulocyte (auto) 0.01 0-0.1 [facility] CampusWhite Blood Pislc5075-69-07 06:12:00* Test Item Value Reference Range Interpretation Comments White Blood Count (test code = 6690-2) 10.09 4.8-10.8 [facility] CampusRed Blood Mncgs4921-85-12 06:12:00* Test Item Value Reference Range Interpretation Comments Red Blood Count (test code = 789-8) 3.20 4.3-5.7 L [facility] CampusHemoglobin2019-08-29 06:12:00* Test Item Value Reference Range Interpretation Comments Hemoglobin (test code = 88236-4) 9.0 14.0-18.0 L [facility] CampusHematocrit2019-08-29 06:12:00* Test Item Value Reference Range Interpretation Comments Hematocrit (test code = 4544-3) 28.1 38.2-49.6 L [facility] CampusMean Corpuscular Qoglfd8572-70-70 06:12:00* Test Item Value Reference Range Interpretation Comments Mean Corpuscular Volume (test code = 787-2) 87.8 81-99 [facility] CampusMean Corpuscular Uxzrxnqsoh9377-49-72 06:12:00* Test Item Value Reference Range Interpretation Comments Mean Corpuscular Hemoglobin (test code = 785-6) 28.1 28-32 [facility] CampusMean Corpuscular Hemoglobin Concent 2018-11-25 06:12:00* Test Item Value Reference Range Interpretation Comments Mean Corpuscular Hemoglobin Concent (test code = 786-4) 32.0 31-35 [facility] CampusRed Cell Distribution Toipl3003-80-96 06:12:00* Test Item Value Reference Range Interpretation Comments Red Cell Distribution Width (test code = 12743-4) 13.7 11.7 -14.4 [facility] CampusPlatelet Hutmc0754-03-85 06:12:00* Test Item Value Reference Range Interpretation Comments Platelet Count (test code = 777-3) 185 140-360 [facility] CampusNeutrophils (%) (Auto)2018-11-25 06:12:00 * Test Item Value Reference Range Interpretation Comments Neutrophils (%) (Auto) (test code = 74968-5) 60.5 38.7-80.0 [facility] CampusLymphocytes (%) (Auto)2018-11-25 06:12:00 * Test Item Value Reference Range Interpretation Comments Lymphocytes (%) (Auto) (test code = 736-9) 24.7 18.0-39.1 [facility] CampusMonocytes (%) (Auto)2018-11-25 06:12:00* Test Item Value Reference Range Interpretation Comments Monocytes (%) (Auto) (test code = 5905-5) 12.2 4.4-11.3 H [facility] CampusEosinophils (%) (Auto)2018-11-25 06:12:00 * Test Item Value Reference Range Interpretation Comments Eosinophils (%) (Auto) (test code = 713-8) 2.0 0.0-6.0 [facility] CampusBasophils (%) (Auto)2018-11-25 06:12:00* Test Item Value Reference Range Interpretation Comments Basophils (%) (Auto) (test code = 706-2) 0.5 0.0-1.0 [facility] CampusIM GRANULOCYTES %2018-11-25 06:12:00* Test Item Value Reference Range Interpretation Comments IM GRANULOCYTES % (test code = IM GRANULOCYTES %) 0.1 0.0- 1.0 [facility] CampusNeutrophils # (Auto)2018-11-25 06:12:00* Test Item Value Reference Range Interpretation Comments Neutrophils # (Auto) (test code = 751-8) 6.1 2.1-6.9 [facility] CampusLymphocytes # (Auto)2018-11-25 06:12:00* Test Item Value Reference Range Interpretation Comments Lymphocytes # (Auto) (test code = 62491-5) 2.5 1.0-3.2 [facility] CampusMonocytes # (Auto)2018-11-25 06:12:00* Test Item Value Reference Range Interpretation Comments Monocytes # (Auto) (test code = 742-7) 1.2 0.2-0.8 H [facility] CampusEosinophils # (Auto)2018-11-25 06:12:00* Test Item Value Reference Range Interpretation Comments Eosinophils # (Auto) (test code = 711-2) 0.2 0.0-0.4 [facility] CampusBasophils # (Auto)2018-11-25 06:12:00* Test Item Value Reference Range Interpretation Comments Basophils # (Auto) (test code = 704-7) 0.1 0.0-0.1 [facility] CampusAbsolute Immature Granulocyte (auto 2018-11-25 06:12:00* Test Item Value Reference Range Interpretation Comments Absolute Immature Granulocyte (auto (zeenat t code = Absolute Immature Granulocyte (auto) 0.01 0-0.1 [facility] CampusWhite Blood Cdtex9790-08-99 06:12:00* Test Item Value Reference Range Interpretation Comments White Blood Count (test code = 6690-2) 10.09 4.8-10.8 [facility] CampusRed Blood Jnbzn1283-91-93 06:12:00* Test Item Value Reference Range Interpretation Comments Red Blood Count (test code = 789-8) 3.20 4.3-5.7 L [facility] CampusHemoglobin2019-08-29 06:12:00* Test Item Value Reference Range Interpretation Comments Hemoglobin (test code = 29808-8) 9.0 14.0-18.0 L [facility] CampusHematocrit2019-08-29 06:12:00* Test Item Value Reference Range Interpretation Comments Hematocrit (test code = 4544-3) 28.1 38.2-49.6 L [facility] CampusMean Corpuscular Gynwix2236-14-31 06:12:00* Test Item Value Reference Range Interpretation Comments Mean Corpuscular Volume (test code = 787-2) 87.8 81-99 [facility] CampusMean Corpuscular Fbsoklqogk0442-26-16 06:12:00* Test Item Value Reference Range Interpretation Comments Mean Corpuscular Hemoglobin (test code = 785-6) 28.1 28-32 [facility] CampusMean Corpuscular Hemoglobin Concent 2018-11-25 06:12:00* Test Item Value Reference Range Interpretation Comments Mean Corpuscular Hemoglobin Concent (test code = 786-4) 32.0 31-35 [facility] CampusRed Cell Distribution Nirzx8176-82-53 06:12:00* Test Item Value Reference Range Interpretation Comments Red Cell Distribution Width (test code = 70774-8) 13.7 11.7 -14.4 [facility] CampusPlatelet Dnssf5167-63-38 06:12:00* Test Item Value Reference Range Interpretation Comments Platelet Count (test code = 777-3) 185 140-360 [facility] CampusNeutrophils (%) (Auto)2018-11-25 06:12:00 * Test Item Value Reference Range Interpretation Comments Neutrophils (%) (Auto) (test code = 27760-9) 60.5 38.7-80.0 [facility] CampusLymphocytes (%) (Auto)2018-11-25 06:12:00 * Test Item Value Reference Range Interpretation Comments Lymphocytes (%) (Auto) (test code = 736-9) 24.7 18.0-39.1 [facility] CampusMonocytes (%) (Auto)2018-11-25 06:12:00* Test Item Value Reference Range Interpretation Comments Monocytes (%) (Auto) (test code = 5905-5) 12.2 4.4-11.3 H [facility] CampusEosinophils (%) (Auto)2018-11-25 06:12:00 * Test Item Value Reference Range Interpretation Comments Eosinophils (%) (Auto) (test code = 713-8) 2.0 0.0-6.0 [facility] CampusBasophils (%) (Auto)2018-11-25 06:12:00* Test Item Value Reference Range Interpretation Comments Basophils (%) (Auto) (test code = 706-2) 0.5 0.0-1.0 [facility] CampusIM GRANULOCYTES %2018-11-25 06:12:00* Test Item Value Reference Range Interpretation Comments IM GRANULOCYTES % (test code = IM GRANULOCYTES %) 0.1 0.0- 1.0 [facility] CampusNeutrophils # (Auto)2018-11-25 06:12:00* Test Item Value Reference Range Interpretation Comments Neutrophils # (Auto) (test code = 751-8) 6.1 2.1-6.9 [facility] CampusLymphocytes # (Auto)2018-11-25 06:12:00* Test Item Value Reference Range Interpretation Comments Lymphocytes # (Auto) (test code = 71047-1) 2.5 1.0-3.2 [facility] CampusMonocytes # (Auto)2018-11-25 06:12:00* Test Item Value Reference Range Interpretation Comments Monocytes # (Auto) (test code = 742-7) 1.2 0.2-0.8 H [facility] CampusEosinophils # (Auto)2018-11-25 06:12:00* Test Item Value Reference Range Interpretation Comments Eosinophils # (Auto) (test code = 711-2) 0.2 0.0-0.4 [facility] CampusBasophils # (Auto)2018-11-25 06:12:00* Test Item Value Reference Range Interpretation Comments Basophils # (Auto) (test code = 704-7) 0.1 0.0-0.1 [facility] CampusAbsolute Immature Granulocyte (auto 2018-11-25 06:12:00* Test Item Value Reference Range Interpretation Comments Absolute Immature Granulocyte (auto (zeenat t code = Absolute Immature Granulocyte (auto) 0.01 0-0.1 [facility] CampusWhite Blood Omcng6500-01-61 06:12:00* Test Item Value Reference Range Interpretation Comments White Blood Count (test code = 6690-2) 10.09 4.8-10.8 [facility] CampusRed Blood Ercug2590-21-75 06:12:00* Test Item Value Reference Range Interpretation Comments Red Blood Count (test code = 789-8) 3.20 4.3-5.7 L [facility] CampusHemoglobin2019-08-29 06:12:00* Test Item Value Reference Range Interpretation Comments Hemoglobin (test code = 89917-7) 9.0 14.0-18.0 L [facility] CampusHematocrit2019-08-29 06:12:00* Test Item Value Reference Range Interpretation Comments Hematocrit (test code = 4544-3) 28.1 38.2-49.6 L [facility] CampusMean Corpuscular Uxbtrj8734-85-89 06:12:00* Test Item Value Reference Range Interpretation Comments Mean Corpuscular Volume (test code = 787-2) 87.8 81-99 [facility] CampusMean Corpuscular Rgiijusbmc1938-73-15 06:12:00* Test Item Value Reference Range Interpretation Comments Mean Corpuscular Hemoglobin (test code = 785-6) 28.1 28-32 [facility] CampusMean Corpuscular Hemoglobin Concent 2018-11-25 06:12:00* Test Item Value Reference Range Interpretation Comments Mean Corpuscular Hemoglobin Concent (test code = 786-4) 32.0 31-35 [facility] CampusRed Cell Distribution Hxczj4321-71-91 06:12:00* Test Item Value Reference Range Interpretation Comments Red Cell Distribution Width (test code = 07707-1) 13.7 11.7 -14.4 [facility] CampusPlatelet Sisjl9499-86-03 06:12:00* Test Item Value Reference Range Interpretation Comments Platelet Count (test code = 777-3) 185 140-360 [facility] CampusNeutrophils (%) (Auto)2018-11-25 06:12:00 * Test Item Value Reference Range Interpretation Comments Neutrophils (%) (Auto) (test code = 67009-3) 60.5 38.7-80.0 [facility] CampusLymphocytes (%) (Auto)2018-11-25 06:12:00 * Test Item Value Reference Range Interpretation Comments Lymphocytes (%) (Auto) (test code = 736-9) 24.7 18.0-39.1 [facility] CampusMonocytes (%) (Auto)2018-11-25 06:12:00* Test Item Value Reference Range Interpretation Comments Monocytes (%) (Auto) (test code = 5905-5) 12.2 4.4-11.3 H [facility] CampusEosinophils (%) (Auto)2018-11-25 06:12:00 * Test Item Value Reference Range Interpretation Comments Eosinophils (%) (Auto) (test code = 713-8) 2.0 0.0-6.0 [facility] CampusBasophils (%) (Auto)2018-11-25 06:12:00* Test Item Value Reference Range Interpretation Comments Basophils (%) (Auto) (test code = 706-2) 0.5 0.0-1.0 [facility] CampusIM GRANULOCYTES %2018-11-25 06:12:00* Test Item Value Reference Range Interpretation Comments IM GRANULOCYTES % (test code = IM GRANULOCYTES %) 0.1 0.0- 1.0 [facility] CampusNeutrophils # (Auto)2018-11-25 06:12:00* Test Item Value Reference Range Interpretation Comments Neutrophils # (Auto) (test code = 751-8) 6.1 2.1-6.9 [facility] CampusLymphocytes # (Auto)2018-11-25 06:12:00* Test Item Value Reference Range Interpretation Comments Lymphocytes # (Auto) (test code = 88420-1) 2.5 1.0-3.2 [facility] CampusMonocytes # (Auto)2018-11-25 06:12:00* Test Item Value Reference Range Interpretation Comments Monocytes # (Auto) (test code = 742-7) 1.2 0.2-0.8 H [facility] CampusEosinophils # (Auto)2018-11-25 06:12:00* Test Item Value Reference Range Interpretation Comments Eosinophils # (Auto) (test code = 711-2) 0.2 0.0-0.4 [facility] CampusBasophils # (Auto)2018-11-25 06:12:00* Test Item Value Reference Range Interpretation Comments Basophils # (Auto) (test code = 704-7) 0.1 0.0-0.1 [facility] CampusAbsolute Immature Granulocyte (auto 2018-11-25 06:12:00* Test Item Value Reference Range Interpretation Comments Absolute Immature Granulocyte (auto (zeenat t code = Absolute Immature Granulocyte (auto) 0.01 0-0.1 [facility] Vutne1799-44-01 05:57:00* Test Item Value Reference Range Interpretation Comments Sodium Level (test code = 2951-2) 138 136-145 [facility] CampusPotassium Clyvu8388-66-84 05:57:00* Test Item Value Reference Range Interpretation Comments Potassium Level (test code = 2823-3) 3.3 3.5-5.1 L [facility] CampusChloride Zlrsv1637-41-98 05:57:00* Test Item Value Reference Range Interpretation Comments Chloride Level (test code = 2075-0) 105 98-107 [facility] CampusCarbon Dioxide Pdnpr9785-48-49 05:57:00* Test Item Value Reference Range Interpretation Comments Carbon Dioxide Level (test code = 2028-9) 27 - [facility] CampusAnion Iqc1095-17-60 05:57:00* Test Item Value Reference Range Interpretation Comments Anion Gap (test code = 09228-4) 9.3 8-16 [facility] CampusBlood Urea Estcuhep9314-36-45 05:57:00* Test Item Value Reference Range Interpretation Comments Blood Urea Nitrogen (test code = 3094-0) 15 7-26 [facility] CampusCreatinine2019-08-29 05:57:00* Test Item Value Reference Range Interpretation Comments Creatinine (test code = 2160-0) 1.17 0.72-1.25 [facility] CampusBUN/Creatinine Immar5479-94-68 05:57:00* Test Item Value Reference Range Interpretation Comments BUN/Creatinine Ratio (test code = 3097-3) 13 09-21 [facility] CampusEstimat Glomerular Filtration Rate 2018-11-25 05:57:00* Test Item Value Reference Range Interpretation Comments Estimat Glomerular Filtration Rate (test code = 186580202) > 60 >60 Ranges were taken from the National Kidney Disease Education Program and the [facility] literature.Reference ranges:60 or greater: Jzebih51-23 ( for 3 consecutive months): Chronic kidney disease 15 or less: Kidney failureThe Hospitals of [facility] CampusGlucose Hnevb6717-47-78 05:57:00* Test Item Value Reference Range Interpretation Comments Glucose Level (test code = DAC9247) 247 74-118 H [facility] CampusCalcium Jahpb7424-68-23 05:57:00* Test Item Value Reference Range Interpretation Comments Calcium Level (test code = 24964-0) 8.4 8.4-10.2 [facility] Nvezm1776-74-32 05:57:00* Test Item Value Reference Range Interpretation Comments Sodium Level (test code = 2951-2) 138 136-145 [facility] CampusPotassium Wrjfv6683-20-37 05:57:00* Test Item Value Reference Range Interpretation Comments Potassium Level (test code = 2823-3) 3.3 3.5-5.1 L [facility] CampusChloride Eqjqu3438-35-82 05:57:00* Test Item Value Reference Range Interpretation Comments Chloride Level (test code = 2075-0) 105 98-107 [facility] CampusCarbon Dioxide Xivfn0959-01-75 05:57:00* Test Item Value Reference Range Interpretation Comments Carbon Dioxide Level (test code = 2028-9) 27 [facility] CampusAnion Jdg2119-21-25 05:57:00* Test Item Value Reference Range Interpretation Comments Anion Gap (test code = 47157-2) 9.3 8-16 [facility] CampusBlood Urea Zyrfbpjm7038-30-73 05:57:00* Test Item Value Reference Range Interpretation Comments Blood Urea Nitrogen (test code = 3094-0) 15 10-22 [facility] CampusCreatinine2019-08-29 05:57:00* Test Item Value Reference Range Interpretation Comments Creatinine (test code = 2160-0) 1.17 0.72-1.25 [facility] CampusBUN/Creatinine Owndz7575-43-47 05:57:00* Test Item Value Reference Range Interpretation Comments BUN/Creatinine Ratio (test code = 3097-3) 13 09-21 [facility] CampusEstimat Glomerular Filtration Rate 2018-11-25 05:57:00* Test Item Value Reference Range Interpretation Comments Estimat Glomerular Filtration Rate (test code = 526664054) > 60 >60 Ranges were taken from the National Kidney Disease Education Program and the [facility] Kid[facility] Foundation literature.Reference ranges:60 or greater: Yzqeva08-50 ( for 3 consecutive months): Chronic kidney disease 15 or less: Kidney failureThe [facility]als of [facility] CampusGlucose Afxmm6570-23-02 05:57:00* Test Item Value Reference Range Interpretation Comments Glucose Level (test code = FPG0032) 247 74-118 H [facility] CampusCalcium Kdppd9578-56-85 05:57:00* Test Item Value Reference Range Interpretation Comments Calcium Level (test code = 64981-3) 8.4 8.4-10.2 [facility] Mjbej5464-01-71 05:57:00* Test Item Value Reference Range Interpretation Comments Sodium Level (test code = 2951-2) 138 136-145 [facility] CampusPotassium Zusci3715-40-05 05:57:00* Test Item Value Reference Range Interpretation Comments Potassium Level (test code = 2823-3) 3.3 3.5-5.1 L [facility] CampusChloride Fsvzj8821-29-52 05:57:00* Test Item Value Reference Range Interpretation Comments Chloride Level (test code = 2075-0) 105 98-107 [facility] CampusCarbon Dioxide Jsthk8664-21-64 05:57:00* Test Item Value Reference Range Interpretation Comments Carbon Dioxide Level (test code = 2028-9) 27 22-29 [facility] CampusAnion Eeb5809-02-44 05:57:00* Test Item Value Reference Range Interpretation Comments Anion Gap (test code = 57788-6) 9.3 8-16 [facility] CampusBlood Urea Wtdqwyxo8280-12-44 05:57:00* Test Item Value Reference Range Interpretation Comments Blood Urea Nitrogen (test code = 3094-0) 15 7-26 [facility] CampusCreatinine2019-08-29 05:57:00* Test Item Value Reference Range Interpretation Comments Creatinine (test code = 2160-0) 1.17 0.72-1.25 [facility] CampusBUN/Creatinine Fkztq7836-10-76 05:57:00* Test Item Value Reference Range Interpretation Comments BUN/Creatinine Ratio (test code = 3097-3) 13 6-25 [facility] CampusEstimat Glomerular Filtration Rate 2018-11-25 05:57:00* Test Item Value Reference Range Interpretation Comments Estimat Glomerular Filtration Rate (test code = 969702656) > 60 >60 Ranges were taken from the National Kidney Disease Education Program and the [facility] Kid[facility] Foundation literature.Reference ranges:60 or greater: Xxmadf28-85 ( for 3 consecutive months): Chronic kidney disease 15 or less: Kidney failureThe [facility]als of [facility] CampusGlucose Gesrt9729-46-19 05:57:00* Test Item Value Reference Range Interpretation Comments Glucose Level (test code = XRX8614) 247 74-118 H [facility] CampusCalcium Fjtpw5296-89-82 05:57:00* Test Item Value Reference Range Interpretation Comments Calcium Level (test code = 30667-3) 8.4 8.4-10.2 [facility] Sgnfi7833-53-70 05:57:00* Test Item Value Reference Range Interpretation Comments Sodium Level (test code = 2951-2) 138 136-145 [facility] CampusPotassium Kqbic2057-61-84 05:57:00* Test Item Value Reference Range Interpretation Comments Potassium Level (test code = 2823-3) 3.3 3.5-5.1 L [facility] CampusChloride Ihfby7873-54-89 05:57:00* Test Item Value Reference Range Interpretation Comments Chloride Level (test code = 2075-0) 105 98-107 [facility] CampusCarbon Dioxide Vzrjs5847-62-27 05:57:00* Test Item Value Reference Range Interpretation Comments Carbon Dioxide Level (test code = 2028-9) 27 22- [facility] CampusAnion Flw1536-53-55 05:57:00* Test Item Value Reference Range Interpretation Comments Anion Gap (test code = 25436-2) 9.3 8-16 [facility] CampusBlood Urea Xypjilcu7697-45-67 05:57:00* Test Item Value Reference Range Interpretation Comments Blood Urea Nitrogen (test code = 3094-0) 15 7-26 [facility] CampusCreatinine2019-08-29 05:57:00* Test Item Value Reference Range Interpretation Comments Creatinine (test code = 2160-0) 1.17 0.72-1.25 [facility] CampusBUN/Creatinine Yeblx5053-07-86 05:57:00* Test Item Value Reference Range Interpretation Comments BUN/Creatinine Ratio (test code = 3097-3) 13 6- [facility] CampusEstimat Glomerular Filtration Rate 2018-11-25 05:57:00* Test Item Value Reference Range Interpretation Comments Estimat Glomerular Filtration Rate (test code = 060935363) > 60 >60 Ranges were taken from the National Kidney Disease Education Program and the [facility] Foundation literature.Reference ranges:60 or greater: Gnzdup64-79 ( for 3 consecutive months): Chronic kidney disease 15 or less: Kidney failureThe Hospitals of [facility] CampusGlucose Hsksh5447-85-57 05:57:00* Test Item Value Reference Range Interpretation Comments Glucose Level (test code = YCW9790) 247 74-118 H [facility] CampusCalcium Mgalp1287-77-98 05:57:00* Test Item Value Reference Range Interpretation Comments Calcium Level (test code = 07833-6) 8.4 8.4-10.2 [facility] CampusBlood Kdyowua9965-03-01 20:52:00* Test Item Value Reference Range Interpretation Comments Blood Culture (test code = 73830342) NO GROWTH AFTER 48 HOURS [facility] CampusUrine RLK0765-82-21 10:48:00* Test Item Value Reference Range Interpretation Comments Urine WBC (test code = 5821-4) 6-10 0-5 H [facility] CampusUrine QXZ4597-14-19 10:48:00* Test Item Value Reference Range Interpretation Comments Urine RBC (test code = 97640-3) 0-5 0-5 [facility] CampusU[facility] Qkibbtzz5718-82-27 10:48:00* Test Item Value Reference Range Interpretation Comments Urine Bacteria (test code = 50873-1) MODERATE NONE H [facility] CampusUrine Epithelial Prkoi7423-11-37 10:48:00 * Test Item Value Reference Range Interpretation Comments Urine Epithelial Cells (test code = 71331-9) FEW NONE [facility] CampusU[facility] KEM5938-10-62 10:48:00* Test Item Value Reference Range Interpretation Comments Urine WBC (test code = 5821-4) 6-10 0-5 H [facility] CampusU[facility] YDS4076-90-01 10:48:00* Test Item Value Reference Range Interpretation Comments Urine RBC (test code = 87654-8) 0-5 0-5 [facility] Jwtwbbnp0726-94-93 10:48:00* Test Item Value Reference Range Interpretation Comments Urine Bacteria (test code = 61020-8) MODERATE NONE H [facility] CampusU[facility] Epithelial Qqbai8838-57-30 10:48:00 * Test Item Value Reference Range Interpretation Comments Urine Epithelial Cells (test code = 96884-8) FEW NONE [facility] WBA1812-77-59 10:48:00* Test Item Value Reference Range Interpretation Comments Urine WBC (test code = 5821-4) 6-10 0-5 H [facility] CampusU[facility] XKW2337-65-78 10:48:00* Test Item Value Reference Range Interpretation Comments Urine RBC (test code = 80714-2) 0-5 0-5 [facility] Qzbrqgjm4422-90-31 10:48:00* Test Item Value Reference Range Interpretation Comments Urine Bacteria (test code = 18250-8) MODERATE NONE H [facility] Epithelial Fhyio1350-24-23 10:48:00 * Test Item Value Reference Range Interpretation Comments Urine Epithelial Cells (test code = 85780-9) FEW NONE [facility] TFP0319-75-17 10:48:00* Test Item Value Reference Range Interpretation Comments Urine WBC (test code = 5821-4) 6-10 0-5 H [facility] KZN1207-29-40 10:48:00* Test Item Value Reference Range Interpretation Comments Urine RBC (test code = 04691-3) 0-5 0-5 [facility] Mbojkmut4238-65-77 10:48:00* Test Item Value Reference Range Interpretation Comments Urine Bacteria (test code = 03295-2) MODERATE NONE H [facility] Epithelial Tmxhr2397-04-37 10:48:00 * Test Item Value Reference Range Interpretation Comments Urine Epithelial Cells (test code = 89264-2) FEW NONE [facility] NAD1589-96-95 10:48:00* Test Item Value Reference Range Interpretation Comments Urine WBC (test code = 5821-4) 6-10 0-5 H [facility] RRW2423-47-71 10:48:00* Test Item Value Reference Range Interpretation Comments Urine RBC (test code = 10492-0) 0-5 0-5 [facility] Duttkqlu4180-20-66 10:48:00* Test Item Value Reference Range Interpretation Comments Urine Bacteria (test code = 78604-1) MODERATE NONE H [facility] Epithelial Crshi9742-78-66 10:48:00 * Test Item Value Reference Range Interpretation Comments Urine Epithelial Cells (test code = 03163-0) FEW NONE [facility] Ldqlj0948-54-61 10:24:00* Test Item Value Reference Range Interpretation Comments Urine Color (test code = 5778-6) YELLOW YELLOW [facility] Vzlyuzx8519-67-22 10:24:00* Test Item Value Reference Range Interpretation Comments Urine Clarity (test code = 73058-0) CLEAR CLEAR [facility] Specific Nkqhxqq1460-26-68 10:24:00 * Test Item Value Reference Range Interpretation Comments Urine Specific Bowman (test code = 5811-5) 1.025 1.010-1.02 5 [facility] jC4867-96-54 10:24:00* Test Item Value Reference Range Interpretation Comments Urine pH (test code = 06357-0) 6 5-7 [facility] Leukocyte Kshiocbj9022-84-64 10:24:00* Test Item Value Reference Range Interpretation Comments Urine Leukocyte Esterase (test code = 90772-2) NEGATIVE NEGATIV E [facility] Zsjxpoi3226-85-06 10:24:00* Test Item Value Reference Range Interpretation Comments Urine Nitrite (test code = 76552-0) NEGATIVE NEGATIVE [facility] Zgjcqvg9293-17-25 10:24:00* Test Item Value Reference Range Interpretation Comments Urine Protein (test code = 55565-3) NEGATIVE NEGATIVE [facility] Glucose (UA)2018-11-24 10:24:00* Test Item Value Reference Range Interpretation Comments Urine Glucose (UA) (test code = 87833-1) NEGATIVE NEGATIVE [facility] Rhfuucz8340-72-35 10:24:00* Test Item Value Reference Range Interpretation Comments Urine Ketones (test code = 26844-7) 1+ NEGATIVE H [facility] Koljivjpzbky5377-13-23 10:24:00* Test Item Value Reference Range Interpretation Comments Urine Urobilinogen (test code = 41746-6) 0.2 0.2-1 [facility] Toqndkcmd3982-44-38 10:24:00* Test Item Value Reference Range Interpretation Comments Urine Bilirubin (test code = 1977-8) NEGATIVE NEGATIVE [facility] Pzddp1540-79-39 10:24:00* Test Item Value Reference Range Interpretation Comments Urine Blood (test code = 32511-2) NEGATIVE NEGATIVE [facility] Lkumm0596-86-94 10:24:00* Test Item Value Reference Range Interpretation Comments Urine Color (test code = 5778-6) YELLOW YELLOW [facility] Zwkvkdj9045-36-73 10:24:00* Test Item Value Reference Range Interpretation Comments Urine Clarity (test code = 82767-1) CLEAR CLEAR [facility] Specific Rlfluuq6084-66-39 10:24:00 * Test Item Value Reference Range Interpretation Comments Urine Specific Bowman (test code = 5811-5) 1.025 1.010-1.02 5 [facility] tC1020-14-53 10:24:00* Test Item Value Reference Range Interpretation Comments Urine pH (test code = 89905-4) 6 5-7 [facility] Leukocyte Qqnpuqps6594-32-79 10:24:00* Test Item Value Reference Range Interpretation Comments Urine Leukocyte Esterase (test code = 05631-2) NEGATIVE NEGATIV E [facility] Mzglvms9503-13-70 10:24:00* Test Item Value Reference Range Interpretation Comments Urine Nitrite (test code = 13748-3) NEGATIVE NEGATIVE [facility] Nddwnka2160-19-71 10:24:00* Test Item Value Reference Range Interpretation Comments Urine Protein (test code = 51130-5) NEGATIVE NEGATIVE [facility] Glucose (UA)2018-11-24 10:24:00* Test Item Value Reference Range Interpretation Comments Urine Glucose (UA) (test code = 81424-6) NEGATIVE NEGATIVE [facility] Cmmmkem9427-50-89 10:24:00* Test Item Value Reference Range Interpretation Comments Urine Ketones (test code = 11947-5) 1+ NEGATIVE H [facility] Khyhdvyzqscn2522-67-63 10:24:00* Test Item Value Reference Range Interpretation Comments Urine Urobilinogen (test code = 28856-8) 0.2 0.2-1 [facility] Jabqknvzp1340-37-71 10:24:00* Test Item Value Reference Range Interpretation Comments Urine Bilirubin (test code = 1977-8) NEGATIVE NEGATIVE [facility] Yxodu3181-86-17 10:24:00* Test Item Value Reference Range Interpretation Comments Urine Blood (test code = 94064-7) NEGATIVE NEGATIVE [facility] Lrxhn2696-03-76 10:24:00* Test Item Value Reference Range Interpretation Comments Urine Color (test code = 5778-6) YELLOW YELLOW [facility] Wfloejp7105-93-54 10:24:00* Test Item Value Reference Range Interpretation Comments Urine Clarity (test code = 63082-6) CLEAR CLEAR [facility] Specific Opurmrb5723-71-11 10:24:00 * Test Item Value Reference Range Interpretation Comments Urine Specific Bowman (test code = 5811-5) 1.025 1.010-1.02 5 [facility] aK6303-76-85 10:24:00* Test Item Value Reference Range Interpretation Comments Urine pH (test code = 95459-2) 6 5-7 [facility] Leukocyte Garzrcei4928-92-64 10:24:00* Test Item Value Reference Range Interpretation Comments Urine Leukocyte Esterase (test code = 00781-1) NEGATIVE NEGATIV E [facility] Awtcupc1217-28-00 10:24:00* Test Item Value Reference Range Interpretation Comments Urine Nitrite (test code = 61437-6) NEGATIVE NEGATIVE [facility] Mfltlaw1295-15-17 10:24:00* Test Item Value Reference Range Interpretation Comments Urine Protein (test code = 86095-2) NEGATIVE NEGATIVE [facility] Glucose (UA)2018-11-24 10:24:00* Test Item Value Reference Range Interpretation Comments Urine Glucose (UA) (test code = 30176-4) NEGATIVE NEGATIVE [facility] Dgxpkdj3817-44-58 10:24:00* Test Item Value Reference Range Interpretation Comments Urine Ketones (test code = 51292-4) 1+ NEGATIVE H [facility] Wrrzsxsnxpty7058-45-40 10:24:00* Test Item Value Reference Range Interpretation Comments Urine Urobilinogen (test code = 17638-2) 0.2 0.2-1 [facility] Cncsdstts5772-61-21 10:24:00* Test Item Value Reference Range Interpretation Comments Urine Bilirubin (test code = 1977-8) NEGATIVE NEGATIVE [facility] Zvjzd6344-69-88 10:24:00* Test Item Value Reference Range Interpretation Comments Urine Blood (test code = 45903-7) NEGATIVE NEGATIVE [facility] Lwlkc6022-42-46 10:24:00* Test Item Value Reference Range Interpretation Comments Urine Color (test code = 5778-6) YELLOW YELLOW [facility] Dtsthca4032-91-01 10:24:00* Test Item Value Reference Range Interpretation Comments Urine Clarity (test code = 69462-7) CLEAR CLEAR [facility] Specific Aapjakt0954-99-24 10:24:00 * Test Item Value Reference Range Interpretation Comments Urine Specific Bowman (test code = 5811-5) 1.025 1.010-1.02 5 [facility] vD7997-24-23 10:24:00* Test Item Value Reference Range Interpretation Comments Urine pH (test code = 05746-7) 6 5-7 [facility] Leukocyte Zwipemep5522-14-65 10:24:00* Test Item Value Reference Range Interpretation Comments Urine Leukocyte Esterase (test code = 66584-4) NEGATIVE NEGATIV E [facility] Vddytlf2146-41-05 10:24:00* Test Item Value Reference Range Interpretation Comments Urine Nitrite (test code = 04945-4) NEGATIVE NEGATIVE [facility] Eeipbft1003-62-25 10:24:00* Test Item Value Reference Range Interpretation Comments Urine Protein (test code = 16772-8) NEGATIVE NEGATIVE [facility] Glucose (UA)2018-11-24 10:24:00* Test Item Value Reference Range Interpretation Comments Urine Glucose (UA) (test code = 58666-4) NEGATIVE NEGATIVE [facility] Xplbwnq4445-71-49 10:24:00* Test Item Value Reference Range Interpretation Comments Urine Ketones (test code = 18242-5) 1+ NEGATIVE H [facility] Mcbzichhndwy2035-08-43 10:24:00* Test Item Value Reference Range Interpretation Comments Urine Urobilinogen (test code = 88177-6) 0.2 0.2-1 [facility] Tgdpsxksy8440-65-93 10:24:00* Test Item Value Reference Range Interpretation Comments Urine Bilirubin (test code = 1977-8) NEGATIVE NEGATIVE [facility] Edcfp3801-93-47 10:24:00* Test Item Value Reference Range Interpretation Comments Urine Blood (test code = 11401-9) NEGATIVE NEGATIVE [facility] Tzdym9634-35-69 10:24:00* Test Item Value Reference Range Interpretation Comments Urine Color (test code = 5778-6) YELLOW YELLOW [facility] Kpwbdyd7107-51-46 10:24:00* Test Item Value Reference Range Interpretation Comments Urine Clarity (test code = 23430-0) CLEAR CLEAR [facility] Specific Ogfsiuo0168-02-56 10:24:00 * Test Item Value Reference Range Interpretation Comments Urine Specific Bowman (test code = 5811-5) 1.025 1.010-1.02 5 [facility] rL6010-24-04 10:24:00* Test Item Value Reference Range Interpretation Comments Urine pH (test code = 43582-3) 6 5-7 [facility] Leukocyte Hwzdnbdg1581-44-38 10:24:00* Test Item Value Reference Range Interpretation Comments Urine Leukocyte Esterase (test code = 42376-1) NEGATIVE NEGATIV E [facility] Ccxeypl5755-93-32 10:24:00* Test Item Value Reference Range Interpretation Comments Urine Nitrite (test code = 64812-2) NEGATIVE NEGATIVE [facility] Eodcafq0693-74-75 10:24:00* Test Item Value Reference Range Interpretation Comments Urine Protein (test code = 74599-3) NEGATIVE NEGATIVE [facility] Glucose (UA)2018-11-24 10:24:00* Test Item Value Reference Range Interpretation Comments Urine Glucose (UA) (test code = 60351-3) NEGATIVE NEGATIVE [facility] Rqxupuo5982-80-54 10:24:00* Test Item Value Reference Range Interpretation Comments Urine Ketones (test code = 29238-3) 1+ NEGATIVE H [facility] Wrlsgcpfpuoa6157-67-62 10:24:00* Test Item Value Reference Range Interpretation Comments Urine Urobilinogen (test code = 09011-7) 0.2 0.2-1 [facility] Broquftwd5624-37-62 10:24:00* Test Item Value Reference Range Interpretation Comments Urine Bilirubin (test code = 1977-8) NEGATIVE NEGATIVE [facility] Khkcm3792-61-43 10:24:00* Test Item Value Reference Range Interpretation Comments Urine Blood (test code = 57563-6) NEGATIVE NEGATIVE [facility] CampusUrine color oyxnqnxifrlda7829-44-73 08:40:00* Test Item Value Reference Range Interpretation Comments Urine Color (test code = 5778-6) YELLOW YELLOW [facility] CampusUrine qgvnpby5984-70-07 08:40:00* Test Item Value Reference Range Interpretation Comments Urine Clarity (test code = 95541-3) CLEAR CLEAR [facility] gravity of Urine by Test strip 2018-11-24 08:40:00* Test Item Value Reference Range Interpretation Comments Urine Specific Bowman (test code = 5811-5) 1.025 1.010-1.02 5 [facility] pH measurement by automated test knyyc2014-84-98 08:40:00* Test Item Value Reference Range Interpretation Comments Urine pH (test code = 15542-0) 6 5-7 [facility] CampusUrine leukocyte esterase detection by automated test khuyb0084-40-68 08:40:00* Test Item Value Reference Range Interpretation Comments Urine Leukocyte Esterase (test code = 99518-4) NEGATIVE NEGATIV E [facility]Urine nitrite detection by automated test uphiy9942-20-26 08:40:00* Test Item Value Reference Range Interpretation Comments Urine Nitrite (test code = 37395-7) NEGATIVE NEGATIVE [facility] CampusUrine protein detection by automated test vpfyv5977-85-06 08:40:00* Test Item Value Reference Range Interpretation Comments Urine Protein (test code = 39337-5) NEGATIVE NEGATIVE [facility] CampusUrine glucose detection by automated test zwlml2593-85-65 08:40:00* Test Item Value Reference Range Interpretation Comments Urine Glucose (UA) (test code = 60420-0) NEGATIVE NEGATIVE [facility] CampusUrine ketones detection by automated test hcmxf9373-01-74 08:40:00* Test Item Value Reference Range Interpretation Comments Urine Ketones (test code = 92016-2) 1+ NEGATIVE [facility] CampusUrine urobilinogen measurement by test strip (mass/volume)2018-11-24 08:40:00* Test Item Value Reference Range Interpretation Comments Urine Urobilinogen (test code = 77400-2) 0.2 0.2-1 [facility] total bilirubin mnfolpesn5354-74-59 08:40:00* Test Item Value Reference Range Interpretation Comments Urine Bilirubin (test code = 1977-8) NEGATIVE NEGATIVE [facility] erythrocytes adcjutbei9896-03-03 08:40:00* Test Item Value Reference Range Interpretation Comments Urine Blood (test code = 76779-9) NEGATIVE NEGATIVE [facility] CampusAutomated urine sediment leukocyte count by microscopy (number/high power field)2018-11-24 08:40:00* Test Item Value Reference Range Interpretation Comments Urine WBC (test code = 5821-4) 6-10 0-5 [facility] CampusErythrocytes detection in urine sediment by light beqlorxvti7810-36-95 08:40:00* Test Item Value Reference Range Interpretation Comments Urine RBC (test code = 85941-0) 0-5 0-5 [facility] CampusBacteria detection in urine sediment by light bvwaskvicl3545-49-02 08:40:00* Test Item Value Reference Range Interpretation Comments Urine Bacteria (test code = 67511-1) MODERATE NONE [facility] CampusEpithelial cells detection in urine sediment by light iatehzefwm8700-97-47 08:40:00* Test Item Value Reference Range Interpretation Comments Urine Epithelial Cells (test code = 06959-2) FEW NONE [facility] CampusLipase2019-08-28 03:50:00* Test Item Value Reference Range Interpretation Comments Lipase (test code = 3040-3) < 4 8-78 L [facility] CampusCXR 1 VEW - CNYK8061-09-23 18:41:00 [facility] [address] [address] Patient Name: BREE LINDSAY MR #: [id number] : 1975 Age/Sex: 42/M Req #: [id number] Adm Physician: ISACC JAVED MD Ordered by: NEIL PEREZ MD Report #: [id number] Location: [facility] Room/Bed: [place] [address] Procedure: [id number] HOPD/CXR 1 VEW - HOPD Exam Date: 11/22/18 Exam Time : 1755 REPORT STATUS: Signed EXA MINATION: CXR [...] on 11/22/181843 COPY TO: NEIL PEREZ MD [id number] 11:31:00* Test Item Value Reference Range Interpretation Comments GLUBED (test code = GLUBED) 163 mg/dL 74-106 H Performed by certified vacuum applicator operator at [facility] ILQDRT6232-26-77 05:52:00* Test Item Value Reference Range Interpretation Comments GLUBED (test code = GLUBED) 339 mg/dL 74-106 H Performed by certified vacuum applicator operator at [facility] BASIC METABOLIC JKTFT4361-85-80 05:04:00* Test Item Value Reference Range Interpretation [...] code = CA) 8.6 mg/dL 8.5-10.1 N XXBUIBFYGR0696-04-03 05:04:00* Test Item Value Reference Range Interpretation Comments PHOSPHORUS (test code = PHOS) 2.5 mg/dL 2.5-4.9 N DQGTXUCKA2097-60-61 05:04:00* Test Item Value Reference Range Interpretation Comments MAGNESIUM (test code = MAG) 1.7 mg/dL 1.8-2.4 L CBC W/AUTO [id number] 04:58:00* Test Item Value Reference Range Interpretation [...] (test code = MDIFF) NO BASIC METABOLIC ODQNU2046-76-70 04:54:00* Test Item Value Reference Range Interpretation [...] CALCIUM (test code = CA) mg/dL 8.5-10.1 REJPOLWSDD7510-51-32 04:54:00* Test Item Value Reference Range Interpretation Comments PHOSPHORUS (test code = PHOS) mg/dL 2.5-4.9 NEVWZMXHP4379-59-14 04:54:00* Test Item Value Reference Range Interpretation Comments MAGNESIUM (test code = MAG) mg/dL 1.8-2.4 NKSFFA4579-27-24 21:18:00* Test Item Value Reference Range Interpretation Comments GLUBED (test code = GLUBED) 363 mg/dL 74-106 H Performed by certified vacuum applicator operator at [facility] MSVL4Q4615-98-51 18:20:00* Test Item Value Reference Range Interpretation Comments GLYCOSYLATED HEMOGLOBIN (HA1C) (test code = GLYHGB) 9.0 % HbA1 4. 8-6.0 H ESTIMATED AVERAGE GLUCOSE (test code = EAG) 212 MG/DL MKECZH4915-68-22 17:42:00* Test Item Value Reference Range Interpretation Comments GLUBED (test code = GLUBED) 216 mg/dL 74-106 H Performed by certified vacuum applicator operator at [facility] [id number] 13:09:00* Test Item Value Reference Range Interpretation Comments GLUBED (test code = GLUBED) 209 mg/dL 74-106 H Performed by certified vacuum applicator operator at [facility] LACTIC UNCD1130-28-22 08:53:00* Test Item Value Reference Range Interpretation [...] taking into account the patients history. PROTHROMBIN KODY1275-08-02 07:23:00* Test Item Value Reference Range Interpretation [...] (2.5-3.5) IS PATIENT ON ANTICOAGULANTS? NTHROMBOPLASTIN TIME CGTYMWJ0138-03-64 07:23:00* Test Item Value Reference Range Interpretation Comments THROMBOPLASTIN TIME PARTIAL (test code = PTT) 26.2 seconds 25.0-36. 5 N IS PATIENT ON ANTICOAGULANTS? NBASIC METABOLIC VPRBC2214-03-31 06:41:00* Test Item Value Reference Range Interpretation [...] CA) 9.7 mg/dL 8.5-10.1 N HEPATIC FUNCTION IQNBB2630-20-86 06:41:00* Test Item Value Reference Range Interpretation [...] reference range due to change in reagent. [id number] 06:41:00* Test Item Value Reference Range Interpretation Comments LIPASE (test code = LIP) 16 U/L 73.0-393.0 L COQDOGUF-Z6688-82-03 06:41:00* Test Item Value Reference Range Interpretation Comments TROPONIN-I (test code = TROPI) <0.015 ng/mL 0-0.045 N BASIC METABOLIC [id number] 06:27:00* Test Item Value Reference Range Interpretation [...] code = CA) mg/dL 8.5-10.1 HEPATIC FUNCTION [id number] 06:27:00* Test Item Value Reference Range Interpretation [...] TOTAL (test code = ALKP) IUnit/L 45-117 RIXWIZ5581-16-89 06:27:00* Test Item Value Reference Range Interpretation Comments LIPASE (test code = LIP) U/L 73.0-393.0 IEAJIVSI-B4545-47-03 06:27:00* Test Item Value Reference Range Interpretation Comments TROPONIN-I (test code = TROPI) ng/mL 0-0.045 POC LACTIC ZSIY9209-69-69 06:23:00* Test Item Value Reference Range Interpretation Comments POC LACTIC ACID (test code = POCLAC) 1.46 MMOL/L 0.4-2.2 N CBC W/O [id number] 06:22:00* Test Item Value Reference Range Interpretation [...] = MPV) 11.6 fL 6.7-11.0 H GASTRIC UIHHVCWR5019-41-70 00:53:00 [place] [address] Patient Name: BREE LINDSAY MR #: [id number] : 1975 Age/Sex: 42/M Req #: [id number] Adm Physician: Ordered by: TAVIA GARCIA MD Report #: [id number] Location: [place] Room/Bed: Procedure: N M/GASTRIC EMPTYING Exam Date: Exam Time: REPORT STATUS: Signed Solid-phase gastric emptying study Reason for examination: GERD with esophagitis; gastritis The protocol used for this study is based on the Consensus Recommendations fo r Gastric Scintigraphy by the [place] [employer] and the Society of Nuclear Medicine. Clinical information: The patien t is diabetic; blood sugar this morning is [...] on 09/21/1856 COPY TO: TAVIA GARCIA MD Cyglxk4492-18-38 15:34:00* Test Item Value Reference Range Interpretation Comments Lipase (test code = 3040-3) < 4 8-78 L [facility] CampusLipase2019-05-14 15:34:00* Test Item Value Reference Range Interpretation Comments Lipase (test code = 3040-3) < 4 8-78 L [facility] CampusGLUBED2019-05-11 11:39:00* Test Item Value Reference Range Interpretation Comments GLUBED (test code = GLUBED) 102 mg/dL 74-106 N Performed by certified vacuum applicator operator at [facility] BASIC METABOLIC GZKRW8813-16-86 11:27:00* Test Item Value Reference Range Interpretation [...] CA) 8.6 mg/dL 8.5-10.1 N CBC W/AUTO [id number] 11:02:00* Test Item Value Reference Range Interpretation [...] DIFF REQUIRED (test code = MDIFF) NO [id number] 07:41:00* Test Item Value Reference Range Interpretation Comments GLUBED (test code = GLUBED) 111 mg/dL 74-106 H Performed by certified vacuum applicator operator at [facility] SUFRJV5911-37-83 21:20:00* Test Item Value Reference Range Interpretation Comments GLUBED (test code = GLUBED) 201 mg/dL 74-106 H Performed by certified vacuum applicator operator at [facility] UAHNCI4707-73-69 16:36:00* Test Item Value Reference Range Interpretation Comments GLUBED (test code = GLUBED) 214 mg/dL 74-106 H Performed by certified vacuum applicator operator at [facility] EBBWLB5686-66-62 12:00:00* Test Item Value Reference Range Interpretation Comments GLUBED (test code = GLUBED) 266 mg/dL 74-106 H Performed by certified vacuum applicator operator at [facility] [id number] 07:31:00* Test Item Value Reference Range Interpretation Comments GLUBED (test code = GLUBED) 252 mg/dL 74-106 H Performed by certified vacuum applicator operator at [facility] FHYCAQ7113-63-54 21:20:00* Test Item Value Reference Range Interpretation Comments GLUBED (test code = GLUBED) 109 mg/dL 74-106 H Performed by certified vacuum applicator operator at [facility] OSLRRF4495-76-82 16:47:00* Test Item Value Reference Range Interpretation Comments GLUBED (test code = GLUBED) 328 mg/dL 74-106 H Performed by certified vacuum applicator operator at [facility] TTFIIK5453-09-39 11:32:00* Test Item Value Reference Range Interpretation Comments GLUBED (test code = GLUBED) 145 mg/dL 74-106 H Performed by certified vacuum applicator operator at [facility] NVZRNA2914-61-11 07:54:00* Test Item Value Reference Range Interpretation Comments GLUBED (test code = GLUBED) 347 mg/dL 74-106 H Performed by certified vacuum applicator operator at [facility] CBC W/AUTO [id number] 07:28:00* Test Item Value Reference Range Interpretation [...] (test code = MDIFF) NO BASIC METABOLIC [id number] 07:10:00* Test Item Value Reference Range Interpretation [...] CA) 8.8 mg/dL 8.5-10.1 N BASIC METABOLIC [id number] 06:59:00* Test Item Value Reference Range Interpretation [...] CALCIUM (test code = CA) mg/dL 8.5-10.1 [id number] 22:44:00* Test Item Value Reference Range Interpretation Comments GLUBED (test code = GLUBED) 364 mg/dL 74-106 H Performed by certified vacuum applicator operator at [facility] BASIC METABOLIC [id number] 17:43:00* Test Item Value Reference Range Interpretation [...] CA) 9.9 mg/dL 8.5-10.1 N HEPATIC FUNCTION [id number] 17:43:00* Test Item Value Reference Range Interpretation [...] reference range due to change in reagent. [id number] 17:43:00* Test Item Value Reference Range Interpretation Comments LIPASE (test code = LIP) 18 U/L 73.0-393.0 L BASIC METABOLIC [id number] 17:22:00* Test Item Value Reference Range Interpretation [...] code = CA) mg/dL 8.5-10.1 HEPATIC FUNCTION [id number] 17:22:00* Test Item Value Reference Range Interpretation [...] TOTAL (test code = ALKP) IUnit/L 45-117 CIJJTQ5659-88-63 17:22:00* Test Item Value Reference Range Interpretation Comments LIPASE (test code = LIP) U/L 73.0-393.0 URINALYSIS [id number] 17:00:00* Test Item Value Reference Range Interpretation [...] FEW #/LPF FEW Urine Source? Clean CatchURINALYSIS UISBNZZO8970-12-04 16:55:00* Test Item Value Reference Range Interpretation [...] HPF NONE Urine Source? Clean CatchCBC W/O [id number] 16:40:00* Test Item Value Reference Range Interpretation [...] MPV) 10.7 fL 6.7-11.0 N CBC W/O [id number] 16:37:00* Test Item Value Reference Range Interpretation [...] VOLUME (test code = MPV) fL 6.7-11.0 Bedside Ojtitlp4820-27-03 08:08:00* Test Item Value Reference Range Interpretation Comments Bedside Glucose (test code = 24206-5) 217 70-120 H Meter ID: [id number]ucose 2018-07-07 08:08:00* Test Item Value Reference Range Interpretation Comments Bedside Glucose (test code = 05769-3) 217 70-120 H Meter ID: [id number] [facility] Glucose 2018-07-07 08:08:00* Test Item Value Reference Range Interpretation Comments Bedside Glucose (test code = 22700-3) 217 70-120 H Meter ID: [id number] Hospitals of [facility] CampusMagnesium Level 2018-07-07 06:31:00* Test Item Value Reference Range Interpretation Comments Magnesium Level (test code = 70310-4) 1.4 1.3-2.1 [facility] CampusMagnesium Djvcl7763-75-79 06:31:00* Test Item Value Reference Range Interpretation Comments Magnesium Level (test code = 58122-7) 1.4 1.3-2.1 [facility] Jorpi3859-43-28 06:31:00* Test Item Value Reference Range Interpretation Comments Magnesium Level (test code = 66170-0) 1.4 1.3-2.1 [facility] CampusMaesium Huyso6397-04-18 06:31:00* Test Item Value Reference Range Interpretation Comments Magnesium Level (test code = 26673-1) 1.4 1.3-2.1 [facility] Axnhi7591-15-67 06:27:00* Test Item Value Reference Range Interpretation Comments Sodium Level (test code = 2951-2) 137 136-145 [facility] CampusPotassium Rsstt7754-70-15 06:27:00* Test Item Value Reference Range Interpretation Comments Potassium Level (test code = 2823-3) 2.7 3.5-5.1 LL Results repeated and called to [place] at 0624 on 07/07/18 by Lisa henry Read back and verified.[facility] CampusChloride Level 2018-07-07 06:27:00* Test Item Value Reference Range Interpretation Comments Chloride Level (test code = 2075-0) 96 98-107 L [facility] CampusCarbon Dioxide Wmymj5462-29-47 06:27:00* Test Item Value Reference Range Interpretation Comments Carbon Dioxide Level (test code = 2028-9) 32 22-29 H [facility] CampusAnion Vqb7706-73-33 06:27:00* Test Item Value Reference Range Interpretation Comments Anion Gap (test code = 94689-2) 11.7 8-16 [facility] CampusBlood Urea Priwrsxx8106-01-20 06:27:00* Test Item Value Reference Range Interpretation Comments Blood Urea Nitrogen (test code = 3094-0) 6 7-26 L [facility] CampusCreatinine2019-04-10 06:27:00* Test Item Value Reference Range Interpretation Comments Creatinine (test code = 2160-0) 0.85 0.72-1.25 [facility] CampusBUN/Creatinine Clgsx9903-42-77 06:27:00* Test Item Value Reference Range Interpretation Comments BUN/Creatinine Ratio (test code = 3097-3) 7 6-25 [facility] CampusEstimat Glomerular Filtration Rate 2018-07-07 06:27:00* Test Item Value Reference Range Interpretation Comments Estimat Glomerular Filtration Rate (test code = 782407935) > 60 >60 Ranges were taken from the National Kidney Disease Education Program and the [facility] Kidney Foundation literature.Reference ranges:60 or greater: Gchlvy58-00 ( for 3 consecutive months): Chronic kidney disease 15 or less: Kidney failureThe Hospitals of Providence [facility] CampusGlucose Qvyra2955-51-96 06:27:00* Test Item Value Reference Range Interpretation Comments Glucose Level (test code = MTV0621) 136 74-118 H [facility] CampusCalcium Rjvqa8601-93-71 06:27:00* Test Item Value Reference Range Interpretation Comments Calcium Level (test code = 80965-8) 8.4 8.4-10.2 [facility] CampusTotal Rxdltogjd6662-39-71 06:27:00* Test Item Value Reference Range Interpretation Comments Total Bilirubin (test code = 1975-2) 0.5 0.2-1.2 [facility] CampusAspartate Amino Transf (AST/SGOT) 2018-07-07 06:27:00* Test Item Value Reference Range Interpretation Comments Aspartate Amino Transf (AST/SGOT) (test code = Aspartate Amino Transf (AST/SGOT)) 12 5-34 [facility] CampusAlanine Aminotransferase (ALT/SGPT) 2018-07-07 06:27:00* Test Item Value Reference Range Interpretation Comments Alanine Aminotransferase (ALT/SGPT) (test code = 1742-6) < 6 0-55 [facility] CampusTotal Ghnmkbk7664-72-71 06:27:00* Test Item Value Reference Range Interpretation Comments Total Protein (test code = 2885-2) 5.8 6.5-8.1 L [facility] CampusAlbumin2019-04-10 06:27:00* Test Item Value Reference Range Interpretation Comments Albumin (test code = 1751-7) 3.1 3.5-5.0 L [facility] CampusGlobulin2019-04-10 06:27:00* Test Item Value Reference Range Interpretation Comments Globulin (test code = 89070-1) 2.7 2.3-3.5 [facility] CampusAlbumin/Globulin Hvepz5973-07-05 06:27:00 * Test Item Value Reference Range Interpretation Comments Albumin/Globulin Ratio (test code = 1759-0) 1.1 0.8-2.0 [facility] CampusAlkaline Dsufmiqdwgg8633-57-90 06:27:00* Test Item Value Reference Range Interpretation Comments Alkaline Phosphatase (test code = 6768-6) 68 40-150 [facility] Tmchs1359-27-59 06:27:00* Test Item Value Reference Range Interpretation Comments Sodium Level (test code = 2951-2) 137 136-145 [facility] CampusPotassium Kuoxt2421-10-40 06:27:00* Test Item Value Reference Range Interpretation Comments Potassium Level (test code = 2823-3) 2.7 3.5-5.1 LL Results repeated and called to [place] at 0624 on 07/07/18 by Lisa henry Read back and verified.[facility] CampusChloride Level 2018-07-07 06:27:00* Test Item Value Reference Range Interpretation Comments Chloride Level (test code = 2075-0) 96 98-107 L [facility] CampusCarbon Dioxide Gwfph3306-16-84 06:27:00* Test Item Value Reference Range Interpretation Comments Carbon Dioxide Level (test code = 2028-9) 32 22-29 H [facility] CampusAnion Zwr5355-52-98 06:27:00* Test Item Value Reference Range Interpretation Comments Anion Gap (test code = 09531-6) 11.7 8-16 [facility] CampusBlood Urea Ikxnsmvx5708-36-95 06:27:00* Test Item Value Reference Range Interpretation Comments Blood Urea Nitrogen (test code = 3094-0) 6 7-26 L [facility] CampusCreatinine2019-04-10 06:27:00* Test Item Value Reference Range Interpretation Comments Creatinine (test code = 2160-0) 0.85 0.72-1.25 [facility] CampusBUN/Creatinine Pdxxh4582-90-54 06:27:00* Test Item Value Reference Range Interpretation Comments BUN/Creatinine Ratio (test code = 3097-3) 7 6-25 [facility] CampusEstimat Glomerular Filtration Rate 2018-07-07 06:27:00* Test Item Value Reference Range Interpretation Comments Estimat Glomerular Filtration Rate (test code = 601683548) > 60 >60 Ranges were taken from the National Kidney Disease Education Program and the [facility]al Kidney Foundation literature.Reference ranges:60 or greater: Sggxph41-65 ( for 3 consecutive months): Chronic kidney disease 15 or less: Kidney failureThe Hospitals of Providence [facility] CampusGlucose Mlifj6914-33-82 06:27:00* Test Item Value Reference Range Interpretation Comments Glucose Level (test code = WDE6128) 136 74-118 H [facility] CampusCalcium Tvuwv6649-05-97 06:27:00* Test Item Value Reference Range Interpretation Comments Calcium Level (test code = 37113-9) 8.4 8.4-10.2 [facility] CampusTotal Npmgylnft0765-35-82 06:27:00* Test Item Value Reference Range Interpretation Comments Total Bilirubin (test code = 1975-2) 0.5 0.2-1.2 [facility] CampusAspartate Amino Transf (AST/SGOT) 2018-07-07 06:27:00* Test Item Value Reference Range Interpretation Comments Aspartate Amino Transf (AST/SGOT) (test code = Aspartate Amino Transf (AST/SGOT)) 12 5-34 [facility] CampusAlanine Aminotransferase (ALT/SGPT) 2018-07-07 06:27:00* Test Item Value Reference Range Interpretation Comments Alanine Aminotransferase (ALT/SGPT) (test code = 1742-6) < 6 0-55 [facility] CampusTotal Cyitkkn4573-98-71 06:27:00* Test Item Value Reference Range Interpretation Comments Total Protein (test code = 2885-2) 5.8 6.5-8.1 L [facility] CampusAlbumin2019-04-10 06:27:00* Test Item Value Reference Range Interpretation Comments Albumin (test code = 1751-7) 3.1 3.5-5.0 L [facility] CampusGlobulin2019-04-10 06:27:00* Test Item Value Reference Range Interpretation Comments Globulin (test code = 29240-2) 2.7 2.3-3.5 [facility] CampusAlbumin/Globulin Hdkdl9076-20-65 06:27:00 * Test Item Value Reference Range Interpretation Comments Albumin/Globulin Ratio (test code = 1759-0) 1.1 0.8-2.0 [facility] CampusAlkaline Ophdorjbitq1478-41-06 06:27:00* Test Item Value Reference Range Interpretation Comments Alkaline Phosphatase (test code = 6768-6) 68 40-150 [facility] Kuage9928-22-57 06:27:00* Test Item Value Reference Range Interpretation Comments Sodium Level (test code = 2951-2) 137 136-145 [facility] CampusPotassium Hxjof6720-26-32 06:27:00* Test Item Value Reference Range Interpretation Comments Potassium Level (test code = 2823-3) 2.7 3.5-5.1 LL Results repeated and called to [place] at 0624 on 07/07/18 by Lisa henry Read back and verified.[facility] CampusChloride Level 2018-07-07 06:27:00* Test Item Value Reference Range Interpretation Comments Chloride Level (test code = 2075-0) 96 98-107 L [facility] CampusCarbon Dioxide Htlhw8062-76-02 06:27:00* Test Item Value Reference Range Interpretation Comments Carbon Dioxide Level (test code = 2028-9) 32 22-29 H [facility] CampusAnion [id number] 06:27:00* Test Item Value Reference Range Interpretation Comments Anion Gap (test code = 37073-9) 11.7 8-16 [facility] CampusBlood Urea Fhivqsex7877-20-11 06:27:00* Test Item Value Reference Range Interpretation Comments Blood Urea Nitrogen (test code = 3094-0) 6 7-26 L [facility] CampusCreatinine2019-04-10 06:27:00* Test Item Value Reference Range Interpretation Comments Creatinine (test code = 2160-0) 0.85 0.72-1.25 [facility] CampusBUN/Creatinine Wnngu0702-09-90 06:27:00* Test Item Value Reference Range Interpretation Comments BUN/Creatinine Ratio (test code = 3097-3) 7 6-25 [facility] CampusEstimat Glomerular Filtration Rate 2018-07-07 06:27:00* Test Item Value Reference Range Interpretation Comments Estimat Glomerular Filtration Rate (test code = 263650703) > 60 >60 Ranges were taken from the National Kidney Disease Education Program and the [facility] Kid[facility] Foundation literature.Reference ranges:60 or greater: Kncxry89-92 ( for 3 consecutive months): Chronic kidney disease 15 or less: Kidney failureThe Hospitals of [facility] CampusGlucose Pdqxq8390-32-82 06:27:00* Test Item Value Reference Range Interpretation Comments Glucose Level (test code = MNN7184) 136 74-118 H [facility] CampusCalcium Cnzyj6363-33-41 06:27:00* Test Item Value Reference Range Interpretation Comments Calcium Level (test code = 34349-8) 8.4 8.4-10.2 [facility] CampusTotal Obtledser5013-69-80 06:27:00* Test Item Value Reference Range Interpretation Comments Total Bilirubin (test code = 1975-2) 0.5 0.2-1.2 [facility] CampusAspartate Amino Transf (AST/SGOT) 2018-07-07 06:27:00* Test Item Value Reference Range Interpretation Comments Aspartate Amino Transf (AST/SGOT) (test code = Aspartate Amino Transf (AST/SGOT)) [facility] CampusAlanine Aminotransferase (ALT/SGPT) 2018-07-07 06:27:00* Test Item Value Reference Range Interpretation Comments Alanine Aminotransferase (ALT/SGPT) (test code = 1742-6) < 6 0-55 [facility] CampusTotal Sdelpvy9830-46-97 06:27:00* Test Item Value Reference Range Interpretation Comments Total Protein (test code = 2885-2) 5.8 6.5-8.1 L [facility] CampusAlbumin2019-04-10 06:27:00* Test Item Value Reference Range Interpretation Comments Albumin (test code = 1751-7) 3.1 3.5-5.0 L [facility] CampusGlobulin2019-04-10 06:27:00* Test Item Value Reference Range Interpretation Comments Globulin (test code = 05755-4) 2.7 2.3-3.5 [facility] CampusAlbumin/Globulin Yvcve5165-60-90 06:27:00 * Test Item Value Reference Range Interpretation Comments Albumin/Globulin Ratio (test code = 1759-0) 1.1 0.8-2.0 [facility] CampusAlkaline Bhkiiuxsdmq1676-95-73 06:27:00* Test Item Value Reference Range Interpretation Comments Alkaline Phosphatase (test code = 6768-6) 68 40-150 [facility] CampusTotal Kmvrhwjmk6369-85-76 06:27:00* Test Item Value Reference Range Interpretation Comments Total Bilirubin (test code = 1975-2) 0.5 0.2-1.2 [facility] CampusAspartate Amino Transf (AST/SGOT) 2018-07-07 06:27:00* Test Item Value Reference Range Interpretation Comments Aspartate Amino Transf (AST/SGOT) (test code = Aspartate Amino Transf (AST/SGOT)) [facility] CampusAlanine Aminotransferase (ALT/SGPT) 2018-07-07 06:27:00* Test Item Value Reference Range Interpretation Comments Alanine Aminotransferase (ALT/SGPT) (test code = 1742-6) < 6 0-55 [facility] CampusTotal Bamyvgv4942-20-87 06:27:00* Test Item Value Reference Range Interpretation Comments Total Protein (test code = 2885-2) 5.8 6.5-8.1 L [facility] CampusAlbumin2019-04-10 06:27:00* Test Item Value Reference Range Interpretation Comments Albumin (test code = 1751-7) 3.1 3.5-5.0 L [facility] CampusGlobulin2019-04-10 06:27:00* Test Item Value Reference Range Interpretation Comments Globulin (test code = 13889-7) 2.7 2.3-3.5 [facility] CampusAlbumin/Globulin Psprt8337-78-02 06:27:00 * Test Item Value Reference Range Interpretation Comments Albumin/Globulin Ratio (test code = 1759-0) 1.1 0.8-2.0 [facility] CampusAlkaline Flrnhkzqisz6756-20-41 06:27:00* Test Item Value Reference Range Interpretation Comments Alkaline Phosphatase (test code = 6768-6) 68 40-150 [facility] CampusTotal Vdpiebhzy0530-20-61 06:27:00* Test Item Value Reference Range Interpretation Comments Total Bilirubin (test code = 1975-2) 0.5 0.2-1.2 [facility] CampusAspartate Amino Transf (AST/SGOT) 2018-07-07 06:27:00* Test Item Value Reference Range Interpretation Comments Aspartate Amino Transf (AST/SGOT) (test code = Aspartate Amino Transf (AST/SGOT)) 12 5-34 [facility] CampusAlanine Aminotransferase (ALT/SGPT) 2018-07-07 06:27:00* Test Item Value Reference Range Interpretation Comments Alanine Aminotransferase (ALT/SGPT) (test code = 1742-6) < 6 0-55 [facility] CampusTotal Vkprdag5814-59-39 06:27:00* Test Item Value Reference Range Interpretation Comments Total Protein (test code = 2885-2) 5.8 6.5-8.1 L [facility] CampusAlbumin2019-04-10 06:27:00* Test Item Value Reference Range Interpretation Comments Albumin (test code = 1751-7) 3.1 3.5-5.0 L [facility] CampusGlobulin2019-04-10 06:27:00* Test Item Value Reference Range Interpretation Comments Globulin (test code = 31628-9) 2.7 2.3-3.5 [facility] CampusAlbumin/Globulin Hlitv8959-87-72 06:27:00 * Test Item Value Reference Range Interpretation Comments Albumin/Globulin Ratio (test code = 1759-0) 1.1 0.8-2.0 [facility] CampusAlkaline Fudwhnddony6527-55-73 06:27:00* Test Item Value Reference Range Interpretation Comments Alkaline Phosphatase (test code = 6768-6) 68 40-150 [facility] CampusTotal Nffwpxqek7700-69-34 06:27:00* Test Item Value Reference Range Interpretation Comments Total Bilirubin (test code = 1975-2) 0.5 0.2-1.2 [facility] CampusAspartate Amino Transf (AST/SGOT) 2018-07-07 06:27:00* Test Item Value Reference Range Interpretation Comments Aspartate Amino Transf (AST/SGOT) (test code = Aspartate Amino Transf (AST/SGOT)) 12 5-34 [facility] CampusAlanine Aminotransferase (ALT/SGPT) 2018-07-07 06:27:00* Test Item Value Reference Range Interpretation Comments Alanine Aminotransferase (ALT/SGPT) (test code = 1742-6) < 6 0-55 [facility] CampusTotal Axkbtzc0518-08-28 06:27:00* Test Item Value Reference Range Interpretation Comments Total Protein (test code = 2885-2) 5.8 6.5-8.1 L [facility] CampusAlbumin2019-04-10 06:27:00* Test Item Value Reference Range Interpretation Comments Albumin (test code = 1751-7) 3.1 3.5-5.0 L [facility] CampusGlobulin2019-04-10 06:27:00* Test Item Value Reference Range Interpretation Comments Globulin (test code = 92881-2) 2.7 2.3-3.5 [facility] CampusAlbumin/Globulin Eubhj3622-43-70 06:27:00 * Test Item Value Reference Range Interpretation Comments Albumin/Globulin Ratio (test code = 1759-0) 1.1 0.8-2.0 [facility] CampusAlkaline Vvpnpbxlces9357-13-57 06:27:00* Test Item Value Reference Range Interpretation Comments Alkaline Phosphatase (test code = 6768-6) 68 40-150 [facility] CampusWhite Blood Sejuz7622-20-94 05:57:00* Test Item Value Reference Range Interpretation Comments White Blood Count (test code = 6690-2) 7.71 4.8-10.8 [facility] CampusRed Blood Evsoh4152-33-71 05:57:00* Test Item Value Reference Range Interpretation Comments Red Blood Count (test code = 789-8) 3.90 4.3-5.7 L [facility] CampusHemoglobin2019-04-10 05:57:00* Test Item Value Reference Range Interpretation Comments Hemoglobin (test code = 31285-6) 11.2 14.0-18.0 L [facility] CampusHematocrit2019-04-10 05:57:00* Test Item Value Reference Range Interpretation Comments Hematocrit (test code = 4544-3) 33.8 38.2-49.6 L [facility] CampusMean Corpuscular Allvgg1051-21-02 05:57:00* Test Item Value Reference Range Interpretation Comments Mean Corpuscular Volume (test code = 787-2) 86.7 81-99 [facility] CampusMean Corpuscular Wmyuodwyvk5957-73-27 05:57:00* Test Item Value Reference Range Interpretation Comments Mean Corpuscular Hemoglobin (test code = 785-6) 28.7 28-32 [facility] CampusMean Corpuscular Hemoglobin Concent 2018-07-07 05:57:00* Test Item Value Reference Range Interpretation Comments Mean Corpuscular Hemoglobin Concent (test code = 786-4) 33.1 31-35 [facility] CampusRed Cell Distribution Zyomk8686-63-07 05:57:00* Test Item Value Reference Range Interpretation Comments Red Cell Distribution Width (test code = 87352-8) 13.2 11.7 -14.4 [facility] CampusPlatelet Wqzmq0334-85-42 05:57:00* Test Item Value Reference Range Interpretation Comments Platelet Count (test code = 777-3) 182 140-360 [facility] CampusNeutrophils (%) (Auto)2018-07-07 05:57:00 * Test Item Value Reference Range Interpretation Comments Neutrophils (%) (Auto) (test code = 98943-7) 54.0 38.7-80.0 [facility] CampusLymphocytes (%) (Auto)2018-07-07 05:57:00 * Test Item Value Reference Range Interpretation Comments Lymphocytes (%) (Auto) (test code = 736-9) 20.6 18.0-39.1 [facility] CampusMonocytes (%) (Auto)2018-07-07 05:57:00* Test Item Value Reference Range Interpretation Comments Monocytes (%) (Auto) (test code = 5905-5) 19.5 4.4-11.3 H [facility] CampusEosinophils (%) (Auto)2018-07-07 05:57:00 * Test Item Value Reference Range Interpretation Comments Eosinophils (%) (Auto) (test code = 713-8) 5.3 0.0-6.0 [facility] CampusBasophils (%) (Auto)2018-07-07 05:57:00* Test Item Value Reference Range Interpretation Comments Basophils (%) (Auto) (test code = 706-2) 0.5 0.0-1.0 [facility] CampusIM GRANULOCYTES %2018-07-07 05:57:00* Test Item Value Reference Range Interpretation Comments IM GRANULOCYTES % (test code = IM GRANULOCYTES %) 0.1 0.0- 1.0 [facility] CampusNeutrophils # (Auto)2018-07-07 05:57:00* Test Item Value Reference Range Interpretation Comments Neutrophils # (Auto) (test code = 751-8) 4.2 2.1-6.9 [facility] CampusLymphocytes # (Auto)2018-07-07 05:57:00* Test Item Value Reference Range Interpretation Comments Lymphocytes # (Auto) (test code = 34105-3) 1.6 1.0-3.2 [facility] CampusMonocytes # (Auto)2018-07-07 05:57:00* Test Item Value Reference Range Interpretation Comments Monocytes # (Auto) (test code = 742-7) 1.5 0.2-0.8 H [facility] CampusEosinophils # (Auto)2018-07-07 05:57:00* Test Item Value Reference Range Interpretation Comments Eosinophils # (Auto) (test code = 711-2) 0.4 0.0-0.4 [facility] CampusBasophils # (Auto)2018-07-07 05:57:00* Test Item Value Reference Range Interpretation Comments Basophils # (Auto) (test code = 704-7) 0.0 0.0-0.1 [facility] CampusAbsolute Immature Granulocyte (auto 2018-07-07 05:57:00* Test Item Value Reference Range Interpretation Comments Absolute Immature Granulocyte (auto (zeenat t code = Absolute Immature Granulocyte (auto) 0.01 0-0.1 [facility] CampusWhite Blood Frfwl6044-48-33 05:57:00* Test Item Value Reference Range Interpretation Comments White Blood Count (test code = 6690-2) 7.71 4.8-10.8 [facility] CampusRed Blood Pdimc4068-74-08 05:57:00* Test Item Value Reference Range Interpretation Comments Red Blood Count (test code = 789-8) 3.90 4.3-5.7 L [facility] CampusHemoglobin2019-04-10 05:57:00* Test Item Value Reference Range Interpretation Comments Hemoglobin (test code = 67073-7) 11.2 14.0-18.0 L [facility] CampusHematocrit2019-04-10 05:57:00* Test Item Value Reference Range Interpretation Comments Hematocrit (test code = 4544-3) 33.8 38.2-49.6 L [facility] CampusMean Corpuscular Ojjxrb6932-07-19 05:57:00* Test Item Value Reference Range Interpretation Comments Mean Corpuscular Volume (test code = 787-2) 86.7 81-99 [facility] CampusMean Corpuscular Zmarjezwrh6391-48-85 05:57:00* Test Item Value Reference Range Interpretation Comments Mean Corpuscular Hemoglobin (test code = 785-6) 28.7 28-32 [facility] CampusMean Corpuscular Hemoglobin Concent 2018-07-07 05:57:00* Test Item Value Reference Range Interpretation Comments Mean Corpuscular Hemoglobin Concent (test code = 786-4) 33.1 31-35 [facility] CampusRed Cell Distribution Nsmvt4668-33-95 05:57:00* Test Item Value Reference Range Interpretation Comments Red Cell Distribution Width (test code = 31108-1) 13.2 11.7 -14.4 [facility] CampusPlatelet Trfgy2592-66-98 05:57:00* Test Item Value Reference Range Interpretation Comments Platelet Count (test code = 777-3) 182 140-360 [facility] CampusNeutrophils (%) (Auto)2018-07-07 05:57:00 * Test Item Value Reference Range Interpretation Comments Neutrophils (%) (Auto) (test code = 22803-3) 54.0 38.7-80.0 [facility] CampusLymphocytes (%) (Auto)2018-07-07 05:57:00 * Test Item Value Reference Range Interpretation Comments Lymphocytes (%) (Auto) (test code = 736-9) 20.6 18.0-39.1 [facility] CampusMonocytes (%) (Auto)2018-07-07 05:57:00* Test Item Value Reference Range Interpretation Comments Monocytes (%) (Auto) (test code = 5905-5) 19.5 4.4-11.3 H [facility] CampusEosinophils (%) (Auto)2018-07-07 05:57:00 * Test Item Value Reference Range Interpretation Comments Eosinophils (%) (Auto) (test code = 713-8) 5.3 0.0-6.0 [facility] CampusBasophils (%) (Auto)2018-07-07 05:57:00* Test Item Value Reference Range Interpretation Comments Basophils (%) (Auto) (test code = 706-2) 0.5 0.0-1.0 [facility] CampusIM GRANULOCYTES %2018-07-07 05:57:00* Test Item Value Reference Range Interpretation Comments IM GRANULOCYTES % (test code = IM GRANULOCYTES %) 0.1 0.0- 1.0 [facility] CampusNeutrophils # (Auto)2018-07-07 05:57:00* Test Item Value Reference Range Interpretation Comments Neutrophils # (Auto) (test code = 751-8) 4.2 2.1-6.9 [facility] CampusLymphocytes # (Auto)2018-07-07 05:57:00* Test Item Value Reference Range Interpretation Comments Lymphocytes # (Auto) (test code = 78220-6) 1.6 1.0-3.2 [facility] CampusMonocytes # (Auto)2018-07-07 05:57:00* Test Item Value Reference Range Interpretation Comments Monocytes # (Auto) (test code = 742-7) 1.5 0.2-0.8 H [facility] CampusEosinophils # (Auto)2018-07-07 05:57:00* Test Item Value Reference Range Interpretation Comments Eosinophils # (Auto) (test code = 711-2) 0.4 0.0-0.4 [facility] CampusBasophils # (Auto)2018-07-07 05:57:00* Test Item Value Reference Range Interpretation Comments Basophils # (Auto) (test code = 704-7) 0.0 0.0-0.1 [facility] CampusAbsolute Immature Granulocyte (auto 2018-07-07 05:57:00* Test Item Value Reference Range Interpretation Comments Absolute Immature Granulocyte (auto (zeenat t code = Absolute Immature Granulocyte (auto) 0.01 0-0.1 [facility] CampusWhite Blood Taoms4607-99-40 05:57:00* Test Item Value Reference Range Interpretation Comments White Blood Count (test code = 6690-2) 7.71 4.8-10.8 [facility] CampusRed Blood Qrcmh3649-29-95 05:57:00* Test Item Value Reference Range Interpretation Comments Red Blood Count (test code = 789-8) 3.90 4.3-5.7 L [facility] CampusHemoglobin2019-04-10 05:57:00* Test Item Value Reference Range Interpretation Comments Hemoglobin (test code = 60931-1) 11.2 14.0-18.0 L [facility] CampusHematocrit2019-04-10 05:57:00* Test Item Value Reference Range Interpretation Comments Hematocrit (test code = 4544-3) 33.8 38.2-49.6 L [facility] CampusMean Corpuscular Iwefqa8994-12-93 05:57:00* Test Item Value Reference Range Interpretation Comments Mean Corpuscular Volume (test code = 787-2) 86.7 81-99 [facility] CampusMean Corpuscular Wrrwarnxds8189-36-99 05:57:00* Test Item Value Reference Range Interpretation Comments Mean Corpuscular Hemoglobin (test code = 785-6) 28.7 28-32 [facility] CampusMean Corpuscular Hemoglobin Concent 2018-07-07 05:57:00* Test Item Value Reference Range Interpretation Comments Mean Corpuscular Hemoglobin Concent (test code = 786-4) 33.1 31-35 [facility] CampusRed Cell Distribution Jivcp3324-75-03 05:57:00* Test Item Value Reference Range Interpretation Comments Red Cell Distribution Width (test code = 16797-0) 13.2 11.7 -14.4 [facility] CampusPlatelet Vxahu3040-22-60 05:57:00* Test Item Value Reference Range Interpretation Comments Platelet Count (test code = 777-3) 182 140-360 [facility] CampusNeutrophils (%) (Auto)2018-07-07 05:57:00 * Test Item Value Reference Range Interpretation Comments Neutrophils (%) (Auto) (test code = 46335-7) 54.0 38.7-80.0 [facility] CampusLymphocytes (%) (Auto)2018-07-07 05:57:00 * Test Item Value Reference Range Interpretation Comments Lymphocytes (%) (Auto) (test code = 736-9) 20.6 18.0-39.1 [facility] CampusMonocytes (%) (Auto)2018-07-07 05:57:00* Test Item Value Reference Range Interpretation Comments Monocytes (%) (Auto) (test code = 5905-5) 19.5 4.4-11.3 H [facility] CampusEosinophils (%) (Auto)2018-07-07 05:57:00 * Test Item Value Reference Range Interpretation Comments Eosinophils (%) (Auto) (test code = 713-8) 5.3 0.0-6.0 [facility] CampusBasophils (%) (Auto)2018-07-07 05:57:00* Test Item Value Reference Range Interpretation Comments Basophils (%) (Auto) (test code = 706-2) 0.5 0.0-1.0 [facility] CampusIM GRANULOCYTES %2018-07-07 05:57:00* Test Item Value Reference Range Interpretation Comments IM GRANULOCYTES % (test code = IM GRANULOCYTES %) 0.1 0.0- 1.0 [facility] CampusNeutrophils # (Auto)2018-07-07 05:57:00* Test Item Value Reference Range Interpretation Comments Neutrophils # (Auto) (test code = 751-8) 4.2 2.1-6.9 [facility] CampusLymphocytes # (Auto)2018-07-07 05:57:00* Test Item Value Reference Range Interpretation Comments Lymphocytes # (Auto) (test code = 14517-0) 1.6 1.0-3.2 [facility] CampusMonocytes # (Auto)2018-07-07 05:57:00* Test Item Value Reference Range Interpretation Comments Monocytes # (Auto) (test code = 742-7) 1.5 0.2-0.8 H [facility] CampusEosinophils # (Auto)2018-07-07 05:57:00* Test Item Value Reference Range Interpretation Comments Eosinophils # (Auto) (test code = 711-2) 0.4 0.0-0.4 [facility] CampusBasophils # (Auto)2018-07-07 05:57:00* Test Item Value Reference Range Interpretation Comments Basophils # (Auto) (test code = 704-7) 0.0 0.0-0.1 [facility] CampusAbsolute Immature Granulocyte (auto 2018-07-07 05:57:00* Test Item Value Reference Range Interpretation Comments Absolute Immature Granulocyte (auto (zeenat t code = Absolute Immature Granulocyte (auto) 0.01 0-0.1 [facility] CampusAmylase Vochl6159-51-80 04:08:00* Test Item Value Reference Range Interpretation Comments Amylase Level (test code = 1798-8) 48 25-125 [facility] CampusLipase2019-04-05 04:08:00* Test Item Value Reference Range Interpretation Comments Lipase (test code = 3040-3) < 4 8-78 L [facility] CampusAmylase Qynvb5314-02-42 04:08:00* Test Item Value Reference Range Interpretation Comments Amylase Level (test code = 1798-8) 48 25-125 [facility] CampusAmylase Hlopq7809-22-89 04:08:00* Test Item Value Reference Range Interpretation Comments Amylase Level (test code = 1798-8) 48 25-125 [facility] CampusAmylase Tysvk1905-04-43 04:08:00* Test Item Value Reference Range Interpretation Comments Amylase Level (test code = 1798-8) 48 25-125 [facility] CampusAmylase Qosgs9491-28-89 04:08:00* Test Item Value Reference Range Interpretation Comments Amylase Level (test code = 1798-8) 48 25-125 [facility] CampusAmylase Dpwbm5906-39-08 04:08:00* Test Item Value Reference Range Interpretation Comments Amylase Level (test code = 1798-8) 48 25-125 [facility] CampusUrine PCW6079-74-52 01:56:00* Test Item Value Reference Range Interpretation Comments Urine WBC (test code = 5821-4) 0-5 0-5 [facility] CampusUrine USK5904-80-50 01:56:00* Test Item Value Reference Range Interpretation Comments Urine RBC (test code = 59157-1) 0-5 0-5 [facility] CampusUrine Ugamxbzi2833-43-04 01:56:00* Test Item Value Reference Range Interpretation Comments Urine Bacteria (test code = 77313-7) FEW NONE [facility] CampusUrine Epithelial Pezgd0805-94-12 01:56:00 * Test Item Value Reference Range Interpretation Comments Urine Epithelial Cells (test code = 91336-4) FEW NONE [facility] CampusUrine Nvmvk3854-70-45 01:56:00* Test Item Value Reference Range Interpretation Comments Urine Mucus (test code = 8247-9) FEW RARE H [facility] CampusUrine XHV4945-45-87 01:56:00* Test Item Value Reference Range Interpretation Comments Urine WBC (test code = 5821-4) 0-5 0-5 [facility] CampusUrine VJK4806-65-75 01:56:00* Test Item Value Reference Range Interpretation Comments Urine RBC (test code = 86440-7) 0-5 0-5 [facility] CampusUrine Dkzhzhfc0286-52-31 01:56:00* Test Item Value Reference Range Interpretation Comments Urine Bacteria (test code = 90489-7) FEW NONE [facility] CampusUrine Epithelial Tymfs9327-05-95 01:56:00 * Test Item Value Reference Range Interpretation Comments Urine Epithelial Cells (test code = 01048-8) FEW NONE [facility] CampusUrine Hjwwt0676-31-04 01:56:00* Test Item Value Reference Range Interpretation Comments Urine Mucus (test code = 8247-9) FEW RARE H [facility] [id number] 01:56:00* Test Item Value Reference Range Interpretation Comments Urine WBC (test code = 5821-4) 0-5 0-5 [facility] [id number] 01:56:00* Test Item Value Reference Range Interpretation Comments Urine RBC (test code = 86226-6) 0-5 0-5 [facility] Ksyqpawy7739-77-82 01:56:00* Test Item Value Reference Range Interpretation Comments Urine Bacteria (test code = 08435-6) FEW NONE [facility] Epithelial [id number] 01:56:00 * Test Item Value Reference Range Interpretation Comments Urine Epithelial Cells (test code = 89115-5) FEW NONE [facility] Jinnh5800-90-32 01:56:00* Test Item Value Reference Range Interpretation Comments Urine Mucus (test code = 8247-9) FEW RARE H [facility] Pgmbg2177-84-71 01:56:00* Test Item Value Reference Range Interpretation Comments Urine Mucus (test code = 8247-9) FEW RARE H [facility] Imqik9404-11-03 01:56:00* Test Item Value Reference Range Interpretation Comments Urine Mucus (test code = 8247-9) FEW RARE H [facility] Dvhyj6581-56-75 01:56:00* Test Item Value Reference Range Interpretation Comments Urine Mucus (test code = 8247-9) FEW RARE H [facility] Lnwjg3137-12-32 01:47:00* Test Item Value Reference Range Interpretation Comments Urine Color (test code = 5778-6) YELLOW YELLOW [facility] Yxrdpcc5933-02-96 01:47:00* Test Item Value Reference Range Interpretation Comments Urine Clarity (test code = 23753-5) CLEAR CLEAR [facility] Specific Gtobprw4992-85-55 01:47:00 * Test Item Value Reference Range Interpretation Comments Urine Specific Bowman (test code = 5811-5) 1.020 1.010-1.02 5 [facility] jV5312-24-01 01:47:00* Test Item Value Reference Range Interpretation Comments Urine pH (test code = 46727-4) 8 5-7 H [facility] Leukocyte Sybavthw5565-18-90 01:47:00* Test Item Value Reference Range Interpretation Comments Urine Leukocyte Esterase (test code = 5799-2) NEGATIVE NEGATIVE [facility] Jgwgxrv3718-55-54 01:47:00* Test Item Value Reference Range Interpretation Comments Urine Nitrite (test code = 83915-1) NEGATIVE NEGATIVE [facility] Xlgjmwg1694-25-22 01:47:00* Test Item Value Reference Range Interpretation Comments Urine Protein (test code = 5804-0) 1+ NEGATIVE H [facility] Glucose (UA)2018-07-02 01:47:00* Test Item Value Reference Range Interpretation Comments Urine Glucose (UA) (test code = 2349-9) NEGATIVE NEGATIVE [facility] Ljojlix8638-11-49 01:47:00* Test Item Value Reference Range Interpretation Comments Urine Ketones (test code = 21346-5) 2+ NEGATIVE H [facility] Sbrokpieijhp7404-93-37 01:47:00* Test Item Value Reference Range Interpretation Comments Urine Urobilinogen (test code = 80307-4) 0.2 0.2-1 [facility] Pilzxzhcn4710-21-85 01:47:00* Test Item Value Reference Range Interpretation Comments Urine Bilirubin (test code = 1978-6) 1+ NEGATIVE H Confirmatory test currently unavailable. False positive results may occur.[facility] Xyoar5986-24-35 01:47:00* Test Item Value Reference Range Interpretation Comments Urine Blood (test code = 61549-8) NEGATIVE NEGATIVE [facility] Jgqth5783-99-84 01:47:00* Test Item Value Reference Range Interpretation Comments Urine Color (test code = 5778-6) YELLOW YELLOW [facility] Jxzhukn1587-92-27 01:47:00* Test Item Value Reference Range Interpretation Comments Urine Clarity (test code = 09921-9) CLEAR CLEAR [facility] Specific Jnzxoin2124-21-95 01:47:00 * Test Item Value Reference Range Interpretation Comments Urine Specific Bowman (test code = 5811-5) 1.020 1.010-1.02 5 [facility] [id number] 01:47:00* Test Item Value Reference Range Interpretation Comments Urine pH (test code = 63006-1) 8 5-7 H [facility] Leukocyte Hcpoxwbu6186-63-83 01:47:00* Test Item Value Reference Range Interpretation Comments Urine Leukocyte Esterase (test code = 5799-2) NEGATIVE NEGATIVE [facility] Rwvywmc5421-94-50 01:47:00* Test Item Value Reference Range Interpretation Comments Urine Nitrite (test code = 57357-8) NEGATIVE NEGATIVE [facility] Arihdzl5458-55-54 01:47:00* Test Item Value Reference Range Interpretation Comments Urine Protein (test code = 5804-0) 1+ NEGATIVE H [facility] Glucose (UA)2018-07-02 01:47:00* Test Item Value Reference Range Interpretation Comments Urine Glucose (UA) (test code = 2349-9) NEGATIVE NEGATIVE [facility] Ibmgsdi8364-67-95 01:47:00* Test Item Value Reference Range Interpretation Comments Urine Ketones (test code = 32504-6) 2+ NEGATIVE H [facility] Imgdlszxthth5021-27-80 01:47:00* Test Item Value Reference Range Interpretation Comments Urine Urobilinogen (test code = 15178-0) 0.2 0.2-1 [facility] Tlhzdkwsr1037-53-28 01:47:00* Test Item Value Reference Range Interpretation Comments Urine Bilirubin (test code = 1978-6) 1+ NEGATIVE H Confirmatory test currently unavailable. False positive results may occur.[facility] Wysgi0792-58-76 01:47:00* Test Item Value Reference Range Interpretation Comments Urine Blood (test code = 29705-2) NEGATIVE NEGATIVE [facility] Wdylt8325-43-09 01:47:00* Test Item Value Reference Range Interpretation Comments Urine Color (test code = 5778-6) YELLOW YELLOW [facility] Otnljsm4458-97-36 01:47:00* Test Item Value Reference Range Interpretation Comments Urine Clarity (test code = 94498-8) CLEAR CLEAR [facility] Specific Iydzpig1758-61-24 01:47:00 * Test Item Value Reference Range Interpretation Comments Urine Specific Bowman (test code = 5811-5) 1.020 1.010-1.02 5 [facility] bL8935-14-77 01:47:00* Test Item Value Reference Range Interpretation Comments Urine pH (test code = 45475-3) 8 5-7 H [facility] Leukocyte Jemecnbg3452-96-87 01:47:00* Test Item Value Reference Range Interpretation Comments Urine Leukocyte Esterase (test code = 5799-2) NEGATIVE NEGATIVE [facility] Jqvaspt4770-45-18 01:47:00* Test Item Value Reference Range Interpretation Comments Urine Nitrite (test code = 61521-6) NEGATIVE NEGATIVE [facility] Utqkxou5332-74-00 01:47:00* Test Item Value Reference Range Interpretation Comments Urine Protein (test code = 5804-0) 1+ NEGATIVE H [facility] Glucose (UA)2018-07-02 01:47:00* Test Item Value Reference Range Interpretation Comments Urine Glucose (UA) (test code = 2349-9) NEGATIVE NEGATIVE [facility] Lukgaaz5527-56-48 01:47:00* Test Item Value Reference Range Interpretation Comments Urine Ketones (test code = 33369-8) 2+ NEGATIVE H [facility] Abtzffqffofw4905-54-52 01:47:00* Test Item Value Reference Range Interpretation Comments Urine Urobilinogen (test code = 30232-7) 0.2 0.2-1 [facility] Lsgnsouoe0201-00-17 01:47:00* Test Item Value Reference Range Interpretation Comments Urine Bilirubin (test code = 1978-6) 1+ NEGATIVE H Confirmatory test currently unavailable. False positive results may occur.[facility] Qnptx4290-37-46 01:47:00* Test Item Value Reference Range Interpretation Comments Urine Blood (test code = 72661-1) NEGATIVE NEGATIVE [facility] TKNIWQUJ1009-28-49 10:20:00 [facility] [address] [address] Patient Name: BREE LINDSAY MR #: [id number] : [id number] Age/Sex: 42/M Req #: [id number] Adm Physician: Ordered by: TAVIA GARCIA MD Report #: [id number] Location: US Room/Bed: Procedure: [id number] U S/US ABDOMEN COMPLETE Exam Date: Exam [...] length. No hydronephrosis or solid mass lesion identified . VASCULATURE: Aorta: Visualized portions appear unremarkable. Interior [...] 102 3 COPY TO: TAVIA GARCIA MD [id number] 05:55:00* Test Item Value Reference Range Interpretation Comments GLUBED (test code = GLUBED) 195 mg/dL 74-106 H Performed by certified vacuum applicator operator at [facility] FKYAVP8224-23-53 17:33:00* Test Item Value Reference Range Interpretation Comments GLUBED (test code = GLUBED) 151 mg/dL 74-106 H Performed by certified vacuum applicator operator at [facility] BASIC METABOLIC VALEF1812-96-35 15:46:00* Test Item Value Reference Range Interpretation [...] code = CA) 7.7 mg/dL 8.5-10.1 L [id number] 12:16:00* Test Item Value Reference Range Interpretation Comments GLUBED (test code = GLUBED) 136 mg/dL 74-106 H Performed by certified vacuum applicator operator at [facility] NHOBGB2985-57-21 07:53:00* Test Item Value Reference Range Interpretation Comments GLUBED (test code = GLUBED) 129 mg/dL 74-106 H Performed by certified vacuum applicator operator at [facility] COMPREHENSIVE METABOLIC TLWGE0986-31-15 06:41:00* Test Item Value Reference Range Interpretation Comments SODIUM (test code = NA) 139 mmol/L 136-145 N POTASSIUM (test code = K) 2.7 mmol/L 3.5-5.1 Re sults called to [id number] by La Más [email or web address] 05/16/18 0636Critical results verified and read back [...] due to change in reagent. CBC W/AUTO [id number] 05:31:00* Test Item Value Reference Range Interpretation [...] code = NRBC#) 0.00 K/mm3 0.0-0.1 N [id number] 20:43:00* Test Item Value Reference Range Interpretation Comments GLUBED (test code = GLUBED) 122 mg/dL 74-106 H Performed by certified vacuum applicator operator at [facility] BZRSLZ2466-92-11 17:15:00* Test Item Value Reference Range Interpretation Comments GLUBED (test code = GLUBED) 145 mg/dL 74-106 H Performed by certified vacuum applicator operator at [facility] FYCHME0284-49-11 11:46:00* Test Item Value Reference Range Interpretation Comments GLUBED (test code = GLUBED) 228 mg/dL 74-106 H Performed by certified vacuum applicator operator at [facility] YOTWTT1481-01-53 07:49:00* Test Item Value Reference Range Interpretation Comments GLUBED (test code = GLUBED) 123 mg/dL 74-106 H Performed by certified vacuum applicator operator at [facility] COMPREHENSIVE METABOLIC AHZIW5423-38-76 07:19:00* Test Item Value Reference Range Interpretation Comments SODIUM (test code = NA) 140 mmol/L 136-145 N POTASSIUM (test code = K) 2.9 mmol/L 3.5-5.1 L Re sults called to [id number] by V.LAB.AG1 05/15/18 0716Critical results verified and [...] due to change in reagent. CBC W/AUTO [id number] 06:20:00* Test Item Value Reference Range Interpretation [...] code = NRBC#) 0.00 K/mm3 0.0-0.1 N [id number] 21:14:00* Test Item Value Reference Range Interpretation Comments GLUBED (test code = GLUBED) 152 mg/dL 74-106 H Performed by certified vacuum applicator operator at [facility] IVEBOR5959-66-95 17:16:00* Test Item Value Reference Range Interpretation Comments GLUBED (test code = GLUBED) 140 mg/dL 74-106 H Performed by certified vacuum applicator operator at [facility] SCFBCE2130-67-63 11:55:00* Test Item Value Reference Range Interpretation Comments GLUBED (test code = GLUBED) 236 mg/dL 74-106 H Performed by certified vacuum applicator operator at [facility] COMPREHENSIVE METABOLIC [id number] 08:50:00* Test Item Value Reference Range Interpretation [...] due to change in reagent. COMPREHENSIVE METABOLIC [id number] 08:38:00* Test Item Value Reference Range Interpretation [...] code = ALKP) IUnit/L 45-117 CBC W/AUTO [id number] 08:00:00* Test Item Value Reference Range Interpretation [...] DIFF REQUIRED (test code = MDIFF) NO [id number] 07:51:00* Test Item Value Reference Range Interpretation Comments GLUBED (test code = GLUBED) 210 mg/dL 74-106 H Performed by certified vacuum applicator operator at [facility] DNVDAI0482-70-14 20:06:00* Test Item Value Reference Range Interpretation Comments GLUBED (test code = GLUBED) 278 mg/dL 74-106 H Performed by certified vacuum applicator operator at [facility] [id number] 16:53:00* Test Item Value Reference Range Interpretation Comments GLUBED (test code = GLUBED) 236 mg/dL 74-106 H Performed by certified vacuum applicator operator at [facility] [id number] 11:31:00* Test Item Value Reference Range Interpretation Comments GLUBED (test code = GLUBED) 269 mg/dL 74-106 H Performed by certified vacuum applicator operator at [facility] GYFFDK8320-04-72 10:39:00* Test Item Value Reference Range Interpretation Comments GLUBED (test code = GLUBED) 298 mg/dL 74-106 H Performed by certified vacuum applicator operator at [facility] COMPREHENSIVE METABOLIC [id number] 06:29:00* Test Item Value Reference Range Interpretation [...] due to change in reagent. COMPREHENSIVE METABOLIC [id number] 06:10:00* Test Item Value Reference Range Interpretation [...] code = ALKP) IUnit/L 45-117 CBC W/AUTO [id number] 05:48:00* Test Item Value Reference Range Interpretation [...] DIFF REQUIRED (test code = MDIFF) NO [id number] 20:52:00* Test Item Value Reference Range Interpretation Comments GLUBED (test code = GLUBED) 238 mg/dL 74-106 H Performed by certified vacuum applicator operator at [facility] [id number] 15:54:00* Test Item Value Reference Range Interpretation Comments GLUBED (test code = GLUBED) 199 mg/dL 74-106 H Performed by certified vacuum applicator operator at [facility] [id number] 11:51:00* Test Item Value Reference Range Interpretation Comments GLUBED (test code = GLUBED) 265 mg/dL 74-106 H Performed by certified vacuum applicator operator at [facility] [id number] 08:20:00* Test Item Value Reference Range Interpretation Comments GLYCOSYLATED HEMOGLOBIN (HA1C) (test code = GLYHGB) 10.6 % HbA1 4. 8-6.0 H ESTIMATED AVERAGE GLUCOSE (test code = EAG) 258 MG/DL COMPREHENSIVE METABOLIC [id number] 08:11:00* Test Item Value Reference Range Interpretation [...] result is a direct measurement.========= THYROID STIMULATING [id number] 08:11:00* Test Item Value Reference Range Interpretation Comments THYROID STIMULATING HORMONE (test code = TSH) 1.020 uIU/mL 0.36-3.7 4 N TSH REFERENCE RANGES: EUTHYROID: 0.35 - 4.3 mIU/mL HYPO : > 5.5 mIU/mL HYPER : < 0.35 mIU/mL COMPREHENSIVE METABOLIC [id number] 07:53:00* Test Item Value Reference Range Interpretation [...] code = LDL) mg/dL 100-129 THYROID STIMULATING [id number] 07:53:00* Test Item Value Reference Range Interpretation Comments THYROID STIMULATING HORMONE (test code = TSH) uIU/mL 0.36-3.7 4 CBC W/AUTO [id number] 07:51:00* Test Item Value Reference Range Interpretation [...] DIFF REQUIRED (test code = MDIFF) NO [id number] 07:10:00* Test Item Value Reference Range Interpretation Comments GLUBED (test code = GLUBED) 350 mg/dL 74-106 H Performed by certified vacuum applicator operator at [facility] DRUGS OF ABUSE SCREEN [id number] 06:10:00* Test Item Value Reference Range Interpretation [...] code = METHAURN) NEGATIVE <300 ng/mL URINALYSIS [id number] 05:29:00* Test Item Value Reference Range Interpretation [...] Urine Source? Clean CatchDRUGS OF ABUSE SCREEN [id number] 05:12:00* Test Item Value Reference Range Interpretation [...] METHADONE (test code = METHAURN) <300 ng/mL [id number] 20:26:00* Test Item Value Reference Range Interpretation Comments GLUBED (test code = GLUBED) 285 mg/dL 74-106 H Performed by certified vacuum applicator operator at [facility] [id number] 13:32:00* Test Item Value Reference Range Interpretation Comments GLUBED (test code = GLUBED) 159 mg/dL 74-106 H Performed by certified vacuum applicator operator at [facility] BASIC METABOLIC [id number] 09:38:00* Test Item Value Reference Range Interpretation [...] CA) 8.9 mg/dL 8.5-10.1 N HEPATIC FUNCTION [id number] 09:38:00* Test Item Value Reference Range Interpretation [...] reference range due to change in reagent. [id number] 09:38:00* Test Item Value Reference Range Interpretation Comments LIPASE (test code = LIP) 20 U/L 73.0-393.0 L BASIC METABOLIC [id number] 09:30:00* Test Item Value Reference Range Interpretation [...] code = CA) mg/dL 8.5-10.1 HEPATIC FUNCTION [id number] 09:30:00* Test Item Value Reference Range Interpretation [...] TOTAL (test code = ALKP) IUnit/L 45-117 [id number] 09:30:00* Test Item Value Reference Range Interpretation Comments LIPASE (test code = LIP) U/L 73.0-393.0 CBC W/O [id number] 09:13:00* Test Item Value Reference Range Interpretation [...] code = MPV) 10.6 fL 6.7-11.0 N [id number] 07:28:00* Test Item Value Reference Range Interpretation Comments GLUBED (test code = GLUBED) 173 mg/dL 74-106 H Performed by certified vacuum applicator operator at [facility] [id number] 20:56:00* Test Item Value Reference Range Interpretation Comments GLUBED (test code = GLUBED) 181 mg/dL 74-106 H Performed by certified vacuum applicator operator at [facility] [id number] 16:11:00* Test Item Value Reference Range Interpretation Comments GLUBED (test code = GLUBED) 245 mg/dL 74-106 H Performed by certified vacuum applicator operator at [facility] [id number] 11:55:00* Test Item Value Reference Range Interpretation Comments GLUBED (test code = GLUBED) 309 mg/dL 74-106 H Performed by certified vacuum applicator operator at [facility] [id number] 08:03:00* Test Item Value Reference Range Interpretation Comments GLUBED (test code = GLUBED) 241 mg/dL 74-106 H Performed by certified vacuum applicator operator at [facility] [id number] 00:08:00* Test Item Value Reference Range Interpretation Comments GLUBED (test code = GLUBED) 175 mg/dL 74-106 H Performed by certified vacuum applicator operator at [facility] [id number] 20:00:00* Test Item Value Reference Range Interpretation Comments GLUBED (test code = GLUBED) 167 mg/dL 74-106 H Performed by certified vacuum applicator operator at [facility] [id number] 16:45:00* Test Item Value Reference Range Interpretation Comments GLUBED (test code = GLUBED) 208 mg/dL 74-106 H Performed by certified vacuum applicator operator at [facility] [id number] 16:01:00* Test Item Value Reference Range Interpretation Comments GLUBED (test code = GLUBED) 47 mg/dL 74-106 LL Performed by certified vacuum applicator [facility]Notified Nurse~ [id number] 11:44:00* Test Item Value Reference Range Interpretation Comments GLUBED (test code = GLUBED) 317 mg/dL 74-106 H Performed by certified vacuum applicator operator at [facility] [id number] 08:20:00* Test Item Value Reference Range Interpretation Comments GLUBED (test code = GLUBED) 271 mg/dL 74-106 H Performed by certified vacuum applicator operator at [facility] CBC W/AUTO [id number] 05:45:00* Test Item Value Reference Range Interpretation [...] = MDIFF) NO, ONLY SCAN NEEDED DIFFERENTIAL [id number] 05:45:00* Test Item Value Reference Range Interpretation Comments STAIN ACCEPTABILITY (test code = STN ACCEPTABLE) STAIN ACCEPTABLE POLYCHROMASIA (test code = POLC) 1+ HYPOCHROMIA (test code = HYPO) 1+ PLATELET ESTIMATE (test code = PLTEST) ADEQUATE PLATELET MORPHOLOGY (test code = PLTMORPH) NORMAL CBC W/AUTO [id number] 05:08:00* Test Item Value Reference Range Interpretation [...] = MDIFF) NO, ONLY SCAN NEEDED DIFFERENTIAL [id number] 05:08:00* Test Item Value Reference Range Interpretation Comments STAIN ACCEPTABILITY (test code = STN ACCEPTABLE) CABOT RINGS (test code = CAB) MORPHOLOGY COMMENT (test code = MOC) PLATELET ESTIMATE (test code = PLTEST) PLATELET MORPHOLOGY (test code = PLTMORPH) CBC W/AUTO [id number] 05:08:00* Test Item Value Reference Range Interpretation [...] = MDIFF) NO, ONLY SCAN NEEDED DIFFERENTIAL [id number] 05:08:00* Test Item Value Reference Range Interpretation Comments STAIN ACCEPTABILITY (test code = STN ACCEPTABLE) MORPHOLOGY COMMENT (test code = MOC) PLATELET ESTIMATE (test code = PLTEST) PLATELET MORPHOLOGY (test code = PLTMORPH) CBC W/AUTO [id number] 05:08:00* Test Item Value Reference Range Interpretation [...] = MDIFF) NO, ONLY SCAN NEEDED DIFFERENTIAL [id number] 05:08:00* Test Item Value Reference Range Interpretation Comments STAIN ACCEPTABILITY (test code = STN ACCEPTABLE) MORPHOLOGY COMMENT (test code = MOC) PLATELET ESTIMATE (test code = PLTEST) PLATELET MORPHOLOGY (test code = PLTMORPH) CBC W/AUTO [id number] 05:08:00* Test Item Value Reference Range Interpretation [...] = MDIFF) NO, ONLY SCAN NEEDED DIFFERENTIAL [id number] 05:08:00* Test Item Value Reference Range Interpretation Comments STAIN ACCEPTABILITY (test code = STN ACCEPTABLE) CABOT RINGS (test code = CAB) MORPHOLOGY COMMENT (test code = MOC) PLATELET ESTIMATE (test code = PLTEST) PLATELET MORPHOLOGY (test code = PLTMORPH) COMPREHENSIVE METABOLIC [id number] 05:04:00* Test Item Value Reference Range Interpretation [...] due to change in reagent. COMPREHENSIVE METABOLIC [id number] 04:54:00* Test Item Value Reference Range Interpretation [...] TOTAL (test code = ALKP) IUnit/L 45-117 [id number] 21:00:00* Test Item Value Reference Range Interpretation Comments GLUBED (test code = GLUBED) 334 mg/dL 74-106 H Performed by certified vacuum applicator operator at [facility] [id number] 16:10:00* Test Item Value Reference Range Interpretation Comments GLUBED (test code = GLUBED) 102 mg/dL 74-106 N Performed by certified vacuum applicator operator at [facility] [id number] 15:59:00* Test Item Value Reference Range Interpretation Comments GLUBED (test code = GLUBED) 339 mg/dL 74-106 H Performed by certified vacuum applicator operator at [facility] URINALYSIS [id number] 09:47:00* Test Item Value Reference Range Interpretation [...] 0-2 #/HPF 0-5 Urine Source? Clean CatchURINALYSIS [id number] 09:46:00* Test Item Value Reference Range Interpretation [...] HPF 0-5 Urine Source? Clean CatchBASIC METABOLIC [id number] 04:02:00* Test Item Value Reference Range Interpretation [...] CA) 9.3 mg/dL 8.5-10.1 N HEPATIC FUNCTION [id number] 04:02:00* Test Item Value Reference Range Interpretation [...] reference range due to change in reagent. [id number] 04:02:00* Test Item Value Reference Range Interpretation Comments LIPASE (test code = LIP) 22 U/L 73.0-393.0 L BASIC METABOLIC [id number] 03:53:00* Test Item Value Reference Range Interpretation [...] code = CA) mg/dL 8.5-10.1 HEPATIC FUNCTION [id number] 03:53:00* Test Item Value Reference Range Interpretation [...] TOTAL (test code = ALKP) IUnit/L 45-117 [id number] 03:53:00* Test Item Value Reference Range Interpretation Comments LIPASE (test code = LIP) U/L 73.0-393.0 CBC W/O [id number] 03:46:00* Test Item Value Reference Range Interpretation [...] code = MPV) 10.9 fL 6.7-11.0 N [id number] 17:23:00 RUN DATE: 12/16/17 [facility] PAGE 1 RUN TIME: 1723 Specimen Inqui ry RUN USER: INTERFACE PATIENT: BREE LINDSAY ACCT #: [id number] LOC: JOHNATHAN #: [id number] AGE/SX: 42/M ROOM: 2046 RE12/11/17REG DR: Olegario Diaz MD : 75 BED: A DIS: 12/13/17 STATUS: DIS IN TLOC: SPEC #: [id number] RECD: 12/14/17-114 STATUS: SHAHRAM NAVARRETE #: [id number] HUY: 12/11/17- SUBM DR: Kvng Izaguirre MD ENTERED: 12/14/17-1150 SP TYPE: STOMACH OTHR DR: Levi Natarajan i, MD ORDERED: GROSS COPIES TO: Kvng Izaguirre MD [address] [place] [address] Levi Lakhani MD [address] [place], [place] [address] PROCEDURES: GROSS (12/15/17-1304 ) TISSUES: 1. GASTRIC ULCER - BX [...] AND DYSPLASIA NEGATIVE FOR MALIGNANCY MYA/sm D [phone] CONTINUED ON NEXT PAGE RUN DATE: 12/16/17 [facility] PAGE 2 RUN TIME: 172 3 Specimen Inquiry RUN USER: INTER FACE SPEC #: [id number] PATIENT: BREE LINDSAY #[id number] (Con tinued) MACROSCOPIC The first specimen is [...] measuring 0.2 cm each. GROSS PERFORMED AT [facility] [address] [place] [address] (p)[phone] MICROSCOPIC MICROSCOPIC PERFORMED AT [facility] All of the stains, including any controls performed, hao swift. [address] [address] (p)[phone] PERFORMING SITE Diagnosis performed at: [facility] [address] [facility] [place] [address] Signed SIGNATURE ON FILE Leigh Ann Fuller 12/16/17 1723 END OF REPORT
--- OUTSIDE RECORDS SUMMARY | 2019-10-28 20:51 | XMS REPORT | Clinical Summary ---
Author Author DEMARIO [facility] Address Unknown Phone Unavailable Care Team Providers Care Curator Name Role Phone Pcp, No PCP Unavailable [...] (HCC); Cannabinoid hyperemesis syndrome (HCC); Hypokalemia 12/13/2018 [facility] Internal Ct dicine - Encounter 12/14/2018 12/13/2018 Travel after [...] AT 70 - 110 mg/dL C HI [facility] BSC [address] [facility] [address] Specimen Blood Performing Organization Address City/State/Zipcode Ph one Number [facility] [place] [phone] [place], [place] [facility] * ECG 12 lead (12/14/2018 10:08 AM CDT) Specimen Narrative Performed At Ventricular Rate 78 BPM GE MUSE Atrial Rate 78 BPM P-R Interval 168 ms QRS Duration 80 ms Q-T Interval 350 ms QTC Calculation(Bazett) 399 ms P Garvin 52 degrees R Garvin -14 degrees T Garvin 35 degrees Normal sinus rhythm Normal ECG No previous ECGs available Confirmed by MD MEGGAN, MARCELINO ([id number] ) on 12/14/2018 2:27:24 PM Procedure Note Interface, External Ris In - 12/14/2018 2:27 PM CDT Ventricular Rate 78 BPM Atrial Rate 78 BPM P-R Interval 168 ms QRS Duration 80 ms Q-T Interval 350 ms QTC Calculation(Bazett) 399 ms P Garvin 52 degrees R Garvin -14 degrees T Garvin 35 degrees Normal sinus rhythm Normal ECG No previous ECGs available Confirmed by MD MEGGAN, MARCELINO ([id number]) on 12/14/2018 2:27:24 PM Performing Organization Address City/State/Zipcode Ph one Number GE MUSE * CBC with platelet count + automated diff (12/14/2018 4:58 AM CDT) Only the most recent of 2 results within the time period is included. WBC 7.5 3.5 - 10.5 K/L [facility] RBC 3.38 (L) 4.63 - 6.08 M/L [facility] Hemoglobin 9.8 (L) 13.7 - 17.5 GM/DL [facility] Hematocrit 31.1 (L) 40.1 - 51.0 % [facility] MCV 92.0 79.0 - 92.2 fL [facility] MCH 29.0 25.7 - 32.2 pg [facility] MCHC 31.5 (L) 32.3 - 36.5 GM/DL [facility] RDW 14.1 11.6 - 14.4 % [facility] Platelets 208Comment: Discordant PLT 150 - 450 K/CU MM [facility] results compared to previous [facility] results; clinical correlation required. MPV 10.4 9.4 - 12.4 fL [facility] nRBC 0 0 - 0 /100 WBC [facility] % Neutros 66 % [facility] % Lymphs 20 % [facility] % Monos 12 % [facility] % Eos 1 % [facility] % Baso 1 % [facility] # Neutros 4.92 1.78 - 5.38 [...] RESOURCES Immature 0 0 - 1 % [facility] Granulocytes-Relative [facility] Specimen Blood Performing Organization Address [facility] one Number [place] [phone] [place] [address] * Phosphorus (12/14/2018 4:58 AM CDT) Phosphorus 2.2 (L) 2.3 - 4.7 mg/dL [facility] Specimen Blood Performing Organization Address City/[facility] one Number [place] [phone] [place] [address] * Magnesium (12/14/2018 4:58 AM CDT) Magnesium 1.6 1.6 - 2.6 mg/dL [facility] Specimen Blood Performing Organization Address City/[facility] one Number [address] [facility] * Basic metabolic panel (12/14/2018 4:58 AM CDT) Only the most recent of 2 results within the time period is included. Sodium 139 136 - 145 meq/L [facility] Potassium 3.2 (L) 3.5 - 5.1 meq/L [facility] Chloride 105 98 - 107 meq/L [facility] CO2 28 22 - 29 meq/L [facility] BUN 11 7 - 21 mg/dL [facility] Creatinine 1.12 0.57 - 1.25 mg/dL [facility] Glucose 112 (H) 70 - 105 mg/dL [facility] Calcium 8.7 8.4 - 10.2 mg/dL [facility] EGFR 87Comment: ESTIMATED GFR IS mL/min/1.73 sq m [facility] NOT ACCURATE CREATININE [facility] CLEARANCE IN PREDICTING GLOMERULAR FILTRATION RATE. ESTIMATED GFR IS NOT APPLICABLE FOR DIALYSIS PATIENTS. Specimen Blood Performing Organization Address [facility] one Elijah [address] [facility] * Hemoglobin A1c (12/13/2018 3:38 PM CDT) Hemoglobin A1C 8.4 (H) 4.3 - 6.1 % [facility] Specimen Blood Performing Organization Address City/[facility] one Number [place] [address] [facility] * Hepatic function panel (12/13/2018 3:38 PM CDT) Protein, Total 6.9 6.0 - 8.3 gm/dL [facility] Albumin 3.9 3.5 - 5.0 g/dL [facility] Total Bilirubin 0.5 0.2 - 1.2 mg/dL [facility] Bilirubin, Direct 0.2 0.1 - 0.5 mg/dL [facility] Alkaline Phosphatase 80 40 - 150 U/L [facility] AST 18 5 - 34 U/L [facility] ALT 15 6 - 55 U/L [facility] Specimen Blood Performing Organization Address [facility] Ph one Number [address] [facility] * Lipid panel (12/13/2018 3:38 PM CDT) Triglycerides 101 mg/dL [facility] Cholesterol 151 mg/dL [facility] HDL 38 mg/dL [facility] LDL Calculated 93 mg/dL [facility] Specimen Blood Narrative Performed At Triglyceride Reference Range: [facility] Low Risk <150 [facility] [id number] High Risk 200-499 Very High Risk>=500 Cholesterol Reference Range: Low Risk <200 [id number] High Risk>240 HDL Cholesterol Reference Range: Low Risk >=60 High Risk <40 LDL Cholesterol Reference Range: Optimal<100 Near [id number] [id number] Very High >=190 Performing Organization Address City/[facility] Ph one Number [address] [facility] after 10/26/2018 Insurance Payer Benefit Subscriber ID Type Phone Address Plan / Group MEDICARE MEDICARE A xxxxxxxxxxx Medicare B [id number] Advance Directives For more information, please contact: [address] [address] Date Inactivated Comments Code Status Date Activated 12/15/2018 12:01 AM Full Code 12/13/2018 10:07 AM This code status was determined by: Patient
--- OUTSIDE RECORDS SUMMARY | 2019-10-28 20:54 | XMS REPORT | Continuity of Care Document ---
Author Author [facility] t Organization [facility] Address 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 Name Role Phone Chao BECKMAN PCP ISACC JAVED Attphys Unavailable STACIE FALLON, JEANNIE Attphys Unavailable Keeley CARTER Attphys Unavailable NEIL PEREZ Attphys Unavailable Dasia GIBSON, Zaina Attphys Rosa FALLON, Jyoti Sharon Attphys [phone] Rigo Mott MD Attphys [phone] ROSA MURALINATH SHARON Attphys Unavailable TAVIA GARCIA Attphys Unavailable ISACC JAVED Admphys Unavailable DAKeeley DOUGLAS Admphys Unavailable ROSA, MURALINATH SHARON Admphys Unavailable Payers Payer Name Policy Type Policy Number Effective Date Expiration Date Keeley cagle Medicare A & B [id number] 2016 00:00:00 [facility] Cdc Review Covid19 [id number] [facility] MEDICAREMEDICARE A BxxxxxxxxxxxMedicare xxxxxxxxxxx [facility] Problems Condition Name Condition Details Condition Category Status Onset Date Resolution Date Last Treatment Date Treating Clinician Comments Source Gastroparesis Gastroparesis Disease Active 2018-12-13 00:00:00 [facility] Diabetic gastroparesis associated with type 2 diabetes mellitus Diabetic gastroparesis associated with type 2 diabetes mellitus Problem Active [facility] Upper gastrointestinal hemorrhage Upper GI bleed Problem Active [facility] Dehydration Dehydration Problem Active [facility] Nausea and vomiting Nausea & vomiting Problem Active [facility] Hematemesis Problem Active [facility] Acute epigastric pain Problem Active [facility] Abdominal pain Problem Active [facility] Vomiting Problem Active [facility] Tachycardia Problem Active [facility] Hyperglycemia Problem Active [facility] Colitis Problem Active [facility] Intractable vomiting with nausea Problem Active [facility] Allergies, Adverse Reactions, Alerts Allergy Name Allergy Type Status Severity Reaction(s) Onset Date Inacti ve Date Treating Clinician Comments Source No Known Allergies DA Active U 2019-02-13 00:00:00 [facility] No Known Allergies DA Active U 2019-02-06 00:00:00 [facility] No Known Allergies DA Active U 2018-05-11 00:00:00 [facility] No Known Allergies DA Active U 2018-02-26 00:00:00 [facility] No Known Allergies DA Active U 2018-01-14 00:00:00 [facility] No Known Allergies DA Active U 2017-12-15 00:00:00 [facility] No Known Allergies DA Active U 2017-10-09 00:00:00 [facility] Family History Family Member Diagnosis Comments Start Date Stop Date Source Maternal uncle Diabetes [facility] Natural mother Diabetes [facility] Social History Social Habit Start Date Stop Date Quantity Comments Source History SDOH Alcohol Std Drinks [facility] History SDOH Alcohol Binge [facility] Sex Assigned At [facility] History SDOH Alcohol Frequency 2018-12-13 00:00:00 2018-12-13 00:00:0 0 1 [facility] Smoking Status Start Date Stop Date Source Never smoker [facility] Medications Ordered Medication Name Filled Medication Name Start Date Stop Da te Current Medication? Ordering Clinician Indication Dosage Frequency Signature (SIG) Comments Components Source Promethazine Hcl Promethazine Hcl 2019-09-21 09:25:00 Yes 25 Every 6 Hours for Vomiting [facility] Losartan Potassium Losartan Potassium 2019-08-25 13:46:00 2019-08-30 5 00:00:00 No 50 Daily [facility] Acetaminophen With Codeine (Tylenol With Codeine #3 Ta blet) 1 Each TABLET Acetaminophen With Codeine (Tylenol With Codeine #3 Tablet) 1 Each TABLET 2019-07-10 18:44:00 2019-09-22 00:00:00 No 300 Every 6 Hours as needed for Pain [facility] Promethazine Hcl Promethazine Hcl 2019-07-06 13:42:00 2019-07-10 00:00 :00 No 25 Three Times A Day [facility] promethazine (PHENERGAN) 12.5 MG tablet 00:00:00 2018-12-21 23:59:00 No 12.5mg Take 1 tablet (12.5 mg total) by mouth every 6 (six) hours as needed for Nausea for up to 7 days. [facility] insulin glargine (LANTUS) 100 unit/mL injection 2018-12-13 1 7:58:14 Yes type 2 diabetes mellitus 25U QD Inject 25 Units subcutaneously nightly Use as directed . [facility] dicyclomine (BENTYL) 10 MG capsule 2018-12-13 17:58:14 Y es 10mg Q.[id number] Take 10 mg by mouth 3 (three) times daily. [facility] metoclopramide HCl (REGLAN) 10 MG tablet 2018-12-13 17:58:14 Yes stomach muscle paralysis and decreased function from diabetes 10mg Take 10 mg by mouth 4 (four) times daily as needed for Nausea. [facility] pantoprazole (PROTONIX) 20 MG tablet 2018-12-13 17:58:14 Ye s 20mg Take 20 mg by mouth 2 (two) times daily before meals. [facility] traMADol (ULTRAM) 50 mg tablet 2018-12-13 17:58:14 Yes 50mg Q.[id number] Take 50 mg by mouth 3 (three) times daily. [facility] insulin aspart U-100 (NOVOLOG) 100 unit/mL injection 2 17:58:13 Yes type 2 diabetes mellitus 5U Inj ect 5 Units subcutaneously 3 (three) times daily before meals. [facility] Ondansetron (Ondansetron Odt) 8 Mg TAB.[facility] Ondanset calli (Ondansetron Odt) 8 Mg TAB.RAPDIS 2018-12-12 19:01:2019-07-10 00:00:00 No 4 Three Times A Day as needed for Nausea, Vomiting [facility] Promethazine Hcl (Phenergan Supp*) 25 Mg SUPP Prometha zine Hcl (Phenergan Supp*) 25 Mg SUPP 2018-12-12 19:01:00 2019-07-10 00:00:00 No 25 Three Times A Day as needed for Nausea, Vomiting [facility] Metoclopramide Hcl (Reglan) 10 Mg TABLET Metoclopramid e Hcl (Reglan) 10 Mg TABLET 2018-11-25 06:19:00 Yes 1 Before Meals And At Bedtime [facility] Pantoprazole Sodium (Protonix) 40 Mg TABLET. Pantopr azole Sodium (Protonix) 40 Mg TABLET. 2018-11-25 06:19:00 Yes 40 Daily [facility] Amlodipine Besylate (Norvasc) 10 Mg TAB Amlodipine Besylate (Norvasc) 10 Mg TAB 2018-11-25 06:19:00 2019-07-09 00:00:00 No 10 Daily [facility] Insulin Aspart (Novolog) 100 Units/1 Ml INJ Insulin As part (Novolog) 100 Units/1 Ml INJ Yes 8 Three Times Daily With Meals [facility] Insulin Glargine (Lantus 3ML Pen) 100 Units/1 Ml INJ I nsulin Glargine (Lantus 3ML Pen) 100 Units/1 Ml INJ Yes 15 Bedtime [facility] Lisinopril Lisinopril Yes 5 Daily [facility] Ondansetron Hcl Ondansetron Hcl Yes 4 Every 6 Hours as needed for Nausea [facility] Dicyclomine Hcl Dicyclomine Hcl 2019-07-10 00:00:00 No 10 Three Times A Day [facility] Promethazine Hcl Promethazine Hcl 2019-07-10 00:00:00 No 25 Three Times A Day as needed for Nausea [facility] Tramadol Hcl (Ultram 50MG*) 50 Mg TAB Tramadol Hcl (Ultram 50MG* ) 50 Mg TAB 2019-07-10 00:00:00 No 1 Three Times A Day as needed for Mild Pain (1-3) Or Fever>100.8 [facility] Glimepiride Glimepiride 2019-07-09 00:00:00 No 2 D aily [facility] Metoclopramide Hcl (Reglan) 10 Mg TABLET Metoclopramid e Hcl (Reglan) 10 Mg TABLET 2018-11-25 00:00:00 No 1 Bedtime [facility] Metoclopramide Hcl Metoclopramide Hcl 2018-11-25 00:00:00 No 10 Three Times A Day [facility] Metoclopramide Hcl (Reglan) 10 Mg TABLET Metoclopramid e Hcl (Reglan) 10 Mg TABLET 2018-11-25 00:00:00 No 1 Three Times A Day [facility] Pantoprazole Sodium (Protonix) 40 Mg TABLET. Pantchery azole Sodium (Protonix) 40 Mg TABLET. 2018-11-25 00:00:00 No 40 Daily [facility] Pantoprazole Sodium (Protonix) 40 Mg TABLET.DR Pantopr azole Sodium (Protonix) 40 Mg TABLET. 2018-11-25 00:00:00 No 40 Twice A Day [facility] Vital Signs Vital Name Observation Time Observation Value Comments Source Body Temperature 2019-10-06 11:55:00 98.0 [degF] [facility] BMI (Body Mass Index) 2019-10-06 00:13:00 25.7 kg/m2 [facility] Weight 2019-10-03 16:16:00 195 [lb_av] [facility] Weight 2019-09-30 07:59:00 195 [lb_av] [facility] BMI (Body Mass Index) 2019-09-30 07:59:00 25.7 kg/m2 [facility] Body Temperature 2019-09-29 23:05:00 99.3 [degF] [facility] Weight 2019-09-29 20:31:00 195 [lb_av] [facility] BMI (Body Mass Index) 2019-09-29 20:31:00 25.7 kg/m2 [facility] Body Temperature 2019-09-24 07:56:00 97.9 [degF] [facility] BMI (Body Mass Index) 2019-09-24 00:04:00 25.7 kg/m2 [facility] Weight 2019-09-22 07:12:00 195 [lb_av] [facility] Weight 2019-09-21 07:05:00 193 [lb_av] [facility] BMI (Body Mass Index) 2019-09-21 07:05:00 25.5 kg/m2 [facility] Body Temperature 2019-09-20 23:35:00 97.7 [degF] [facility] Weight 2019-09-20 21:36:00 193 [lb_av] [facility] BMI (Body Mass Index) 2019-09-20 21:36:00 25.5 kg/m2 [facility] Weight 2019-08-23 17:53:00 195 [lb_av] [facility] BMI (Body Mass Index) 2019-08-23 17:53:00 25.7 kg/m2 [facility] Body Temperature 2019-07-24 12:23:00 97.6 [degF] [facility] Systolic blood pressure 2018-12-14 15:44:00 160 mm[Hg] [facility] Diastolic blood pressure 2018-12-14 15:44:00 82 mm[Hg] [facility] Heart rate 2018-12-14 15:44:00 69 /min [facility] Body temperature 2018-12-14 15:44:00 37.44 Sarai [facility] Respiratory rate 2018-12-14 15:44:00 18 /min [facility] Oxygen saturation in Arterial blood by Pulse oximetry 12-14 15:44:00 97 /min [facility] Body weight Measured 2018-12-13 10:20:00 86.274 kg [facility] Procedures Procedure Date / Time Performed Performing Clinician [facility] Computed tomography of abdomen and pelvis with contrast 00:00:00 [facility] Computed tomography of abdomen and pelvis with contrast 00:00:00 [facility] EMERGENCY DEPT VISIT 2019-09-21 00:00:00 [facility] EMERGENCY DEPT VISIT 2019-09-20 00:00:00 [facility] REPORT OF PROCEDURE - ENDOSCOPY SCAN 2018-12-16 09:02:06 Pro vider, Default Scanning [facility] POCT-GLUCOSE METER 2018-12-14 17:15:00 Shant Mott [facility] POCT-GLUCOSE METER 2018-12-14 12:04:00 Shant Mott [facility] ECG 12-LEAD 2018-12-14 10:08:16 Shant Mott [facility] POCT-GLUCOSE METER 2018-12-14 07:43:00 Tiera Shant Herr henok [facility] BASIC METABOLIC PANEL (7) 2018-12-14 04:58:00 Gadicherla, Sharon Muralinath [facility] PHOSPHORUS 2018-12-14 04:58:00 Gadicherla, Sharon Muralinath [facility] MAGNESIUM 2018-12-14 04:58:00 Gadicherla, Sharon Muralinath [facility] CBC W/PLT COUNT & AUTO DIFFERENTIAL 2018-12-14 04:58:00 Jared cherla, Sharon Muralinath [facility] POCT-GLUCOSE METER 2018-12-13 21:09:00 Gadicherla, Sharon Muralin [facility] POCT-GLUCOSE METER 2018-12-13 15:54:00 Gadicherla, Sharon Muralin [facility] BASIC METABOLIC PANEL (7) 2018-12-13 15:38:00 Gadicherla, Sharon Muralinath [facility] HEPATIC FUNCTION PANEL 2018-12-13 15:38:00 Gadicherla, Sharon Maureen alinath [facility] HEMOGLOBIN A1C 2018-12-13 15:38:00 [facility] LIPID [facility]EL 2018-12-13 15:38:00 Gadicherla, Sharon Muralinath [facility] CBC W/PLT COUNT & AUTO DIFFERENTIAL 2018-12-13 15:38:00 Jared cherla, Sharon Muralinath [facility] POCT-GLUCOSE METER 2018-12-13 12:25:00 Gadicherla, Sharon Muralin [facility] Plan of Care Planned Activity Planned Date Details Comments Source Instructions Marijuana Abuse [facility] Encounters Start Date/Time End Date/Time Encounter Type Admission Type [facility] Facility Care Department Encounter ID Source 2019-10-04 00:35:00 2019-10-06 12:14:00 Discharged Inpatient 1 ISACC JAVED [facility] [id number] [facility] 2019-09-30 08:15:00 2019-09-30 14:10:00 Departed Emergency Room 1 JAENNIE QUINONES MD [facility] [id number] [facility] 2019-09-29 20:40:00 2019-09-29 23:05:00 Departed Emergency Room [facility] [id number] [facility] 2019-09-22 09:41:00 2019-09-24 08:22:00 Discharged Inpatient 1 RUSLAN CARTER [facility] [id number] [facility] 2019-09-21 07:02:00 2019-09-21 11:05:00 Departed Emergency Room [facility] [id number] [facility] 2019-09-20 20:47:00 2019-09-20 23:35:00 Departed Emergency Room [facility] [id number] [facility] 2019-08-24 08:10:00 2019-08-25 14:00:00 Discharged Inpatient (obs) [facility] [id number] [facility] 2019-08-23 17:24:00 2019-08-23 19:35:00 Departed Emergency Room [facility] [id number] [facility] 2019-07-23 06:38:00 2019-07-24 13:59:00 Discharged Inpatient 1 NEIL PEREZ [facility] [id number] [facility] 2019-07-09 15:58:00 2019-07-10 18:57:00 Discharged Inpatient (obs) [facility] [id number] [facility] 2019-07-06 11:09:00 2019-07-06 14:11:00 Departed Emergency Room [facility] [id number] [facility] 2019-05-31 00:00:00 2019-05-31 00:00:00 Transition of Care Zaina Forman [id number] 2018-12-13 06:33:00 2018-12-13 08:35:00 Departed Emergency Room [facility] [id number] [facility] 2018-12-12 17:07:00 2018-12-12 19:35:00 Departed Emergency Room [facility] [id number] [facility] 2018-11-22 18:24:00 2018-11-25 16:05:00 Discharged Inpatient 1 ISACC JAVED [facility] [id number] [facility] 2018-09-28 12:15:00 2018-09-28 16:32:00 Departed Emergency Room [facility] [id number] [facility] 2018-09-20 08:55:00 2018-09-20 08:55:00 Registered Clinic 3 TAVIA GARCIA [facility] [id number] [facility] 2018-08-10 13:35:00 2018-08-10 17:00:00 Departed Emergency Room [facility] [id number] [facility] 2018-07-05 11:53:00 2018-07-07 08:40:00 Discharged Inpatient [facility] [id number] [facility] 2018-06-23 07:38:00 2018-06-23 07:38:00 Registered Clinic 3 TAVIA GARCIA [facility] [id number] [facility] Results Test Description Test Time Test Comments Results Result Comments Source Blood leukocytes automated count (number/volume) 2019-10-06 05:15:00 Test Item White Blood Count (test code = 6690-2) 7.83 4.8-10.8 [facility] (number/volume)2019-10-06 05:15:00* Test Item Value Reference Range Interpretation Comments Red Blood Count (test code = 789-8) 3.95 4.3-5.7 [facility] measurement (moles/volume)2019-10-06 05:15:00* Test Item Value Reference Range Interpretation Comments Hemoglobin (test code = 40405-3) 11.2 14.0-18.0 [facility] hematocrit (volume fraction)2019-10-06 05:15:00* Test Item Value Reference Range Interpretation Comments Hematocrit (test code = 4544-3) 35.5 38.2-49.6 [facility] eryth[facility] mean corpuscular [id number] 05:15:00* Test Item Value Reference Range Interpretation Comments Mean Corpuscular Volume (test code = 787-2) 89.9 81-99 [facility] mean corpuscular hemoglobin (mass per erythrocyte)2019-10-06 05:15:00* Test Item Value Reference Range Interpretation Comments Mean Corpuscular Hemoglobin (test code = 785-6) 28.4 28-32 [facility] mean corpuscular hemoglobin concentration measurement (mass/volume)2019-10-06 05:15:00* Test Item Value Reference Range Interpretation Comments Mean Corpuscular Hemoglobin Concent (test code = 786-4) 31.5 31-35 [facility] HospitalRDW BgwZp-Pdu6526-31-09 05:15:00* Test Item Value Reference Range Interpretation Comments Red Cell Distribution Width (test code = 35891-4) 13.4 11.7 -14.4 [facility] platelet count (count/volume)2019-10-06 05:15:00* Test Item Value Reference Range Interpretation Comments Platelet Count (test code = 777-3) 243 140-360 [facility] segmented neutrophil count as percentage of total xzlkzdipyb7415-56-56 05:15:00* Test Item Value Reference Range Interpretation Comments Neutrophils (%) (Auto) (test code = 99064-6) 57.1 38.7-80.0 [facility] lymphocyte count as percentage ot total caixpgbsdp3312-02-94 05:15:00* Test Item Value Reference Range Interpretation Comments Lymphocytes (%) (Auto) (test code = 736-9) 31.9 18.0-39.1 [facility] monocyte count as percentage of total trlmvbzsxx2027-89-34 05:15:00* Test Item Value Reference Range Interpretation Comments Monocytes (%) (Auto) (test code = 5905-5) 7.8 4.4-11.3 [facility] eosinophil count as percentage of total xuninmlpsw8466-63-30 05:15:00* Test Item Value Reference Range Interpretation Comments Eosinophils (%) (Auto) (test code = 713-8) 2.2 0.0-6.0 [facility] basophil count as percentage of total jkhtxrtajh6836-68-88 05:15:00* Test Item Value Reference Range Interpretation Comments Basophils (%) (Auto) (test code = 706-2) 0.9 0.0-1.0 [facility] HospitalFluoroscopic procedure less than one hour wtyoskyq0653-08-97 05:15:00* Test Item Value Reference Range Interpretation Comments IM GRANULOCYTES % (test code = IM GRANULOCYTES %) 0.1 0.0- 1.0 [facility] neutrophil count 2019-10-06 05:15:00* Test Item Value Reference Range Interpretation Comments Neutrophils # (Auto) (test code = 751-8) 4.5 2.1-6.9 [facility] lymphocytes count (number/volume) 2019-10-06 05:15:00* Test Item Value Reference Range Interpretation Comments Lymphocytes # (Auto) (test code = 47799-1) 2.5 1.0-3.2 [facility]Blood monocytes automated count (number/volume)2019-10-06 05:15:00* Test Item Value Reference Range Interpretation Comments Monocytes # (Auto) (test code = 742-7) 0.6 0.2-0.8 [facility] blood eosinophil count 2019-10-06 05:15:00* Test Item Value Reference Range Interpretation Comments Eosinophils # (Auto) (test code = 711-2) 0.2 0.0-0.4 [facility]Autom[facility] blood basophil count (count/volume)2019-10-06 05:15:00* Test Item Value Reference Range Interpretation Comments Basophils # (Auto) (test code = 704-7) 0.1 0.0-0.1 [facility] HospitalFluoroscopic procedure less than one hour [id number] 05:15:00* Test Item Value Reference Range Interpretation Comments Absolute Immature Granulocyte (auto (zeenat t code = Absolute Immature Granulocyte (auto) 0.01 0-0.1 [facility] sodium [facility] (moles/volume)2019-10-06 05:15:00* Test Item Value Reference Range Interpretation Comments Sodium Level (test code = 2951-2) 135 136-145 [facility] plasma potassium measurement (moles/volume)2019-10-06 05:15:00* Test Item Value Reference Range Interpretation Comments Potassium Level (test code = 2823-3) 3.4 3.5-5.1 [facility] plasma chloride measurement (moles/volume)2019-10-06 05:15:00* Test Item Value Reference Range Interpretation Comments Chloride Level (test code = 2075-0) 99 98-107 [facility] plasma carbon dioxide, total measurement (moles/volume)2019-10-06 05:15:00* Test Item Value Reference Range Interpretation Comments Carbon Dioxide Level (test code = 2028-9) 29 22-29 [facility] plasma anion [id number] 05:15:00* Test Item Value Reference Range Interpretation Comments Anion Gap (test code = 97634-6) 10.4 8-16 [facility] plasma urea nitrogen measurement (mass/volume)2019-10-06 05:15:00* Test Item Value Reference Range Interpretation Comments Blood Urea Nitrogen (test code = 3094-0) < 5 7-26 [facility] plasma creatinine measurement (mass/volume)2019-10-06 05:15:00* Test Item Value Reference Range Interpretation Comments Creatinine (test code = 2160-0) 1.04 0.72-1.25 [facility] plasma urea nitrogen/creatinine mass pcnla9348-98-66 05:15:00* Test Item Value Reference Range Interpretation Comments BUN/Creatinine Ratio (test code = 3097-3) 5 6-25 [facility] HospitalEstimated glomerular filtration rate (GFR) wliczakpdszdh6731-13-93 05:15:00* Test Item Value Reference Range Interpretation Comments Estimat Glomerular Filtration Rate (test code = 880299978) > 60 >60 Ranges were taken from the National Kidney Disease Education Program and the [employer] literature.Reference ranges:60 or greater: Muroiw31-20 ( for 3 consecutive months): Chronic kidney disease 15 or less: Kidney failureStephens Memorial HospitalGlucose bgiwxavuggt4504-20-19 05:15:00* Test Item Value Reference Range Interpretation Comments Glucose Level (test code = VOK9896) 202 74-118 [facility] plasma calcium measurement (mass/volume)2019-10-06 05:15:00* Test Item Value Reference Range Interpretation Comments Calcium Level (test code = 10513-1) 8.7 8.4-10.2 [facility] HospitalCapillary blood glucose measurement by glucometer (mass/volume)2019-10-05 19:48:00* Test Item Value Reference Range Interpretation Comments Bedside Glucose (test code = 99040-7) 233 70-120 Meter ID: [id number] [facility] rnryvrxntnksv9116-51-32 06:00:00* Test Item Value Reference Range Interpretation Comments Urine Color (test code = 5778-6) YELLOW YELLOW [facility] HospitalUrine [id number] 06:00:00* Test Item Value Reference Range Interpretation Comments Urine Clarity (test code = 01472-8) [facility] Test [facility] 2019-10-05 06:00:00* Test Item Value Reference Range Interpretation Comments Urine Specific [place] (test code = 5811-5) 1.020 1.010-1.02 5 [facility] measurement by automated test mmybh2992-98-56 06:00:00* Test Item Value Reference Range Interpretation Comments Urine pH (test code = 35837-8) 7.5 5-7 [facility] HospitalUrine leukocyte esterase detection by ihtbglrv3217-27-38 06:00:00* Test Item Value Reference Range Interpretation Comments Urine Leukocyte Esterase (test code = 5799-2) NEGATIVE NEGATIVE [facility] HospitalUrine nitrite zotltfkrf7523-54-40 06:00:00* Test Item Value Reference Range Interpretation Comments Urine Nitrite (test code = 47389-8) NEGATIVE NEGATIVE [facility] HospitalUrine protein measurement by test strip (mass/volume)2019-10-05 06:00:00* Test Item Value Reference Range Interpretation Comments Urine Protein (test code = 5804-0) NEGATIVE NEGATIVE [facility] HospitalUrine glucose gwkgeirek1989-10-24 06:00:00* Test Item Value Reference Range Interpretation Comments Urine Glucose (UA) (test code = 2349-9) 2+ NEGATIVE [facility] HospitalUrine ketones detection by automated test yswza4410-23-50 06:00:00* Test Item Value Reference Range Interpretation Comments Urine Ketones (test code = 87240-5) TRACE NEGATIVE [facility] HospitalUrine opiates screening kgpi2567-68-28 06:00:00* Test Item Value Reference Range Interpretation Comments Urine Opiates Screen (test code = 00832-7) POSITIVE NEGATIVE This test provides only a screen. Positive results should be repeated by a confi rmatory test.[facility] HospitalBarbiturates screen, urine 2019-10-05 06:00:00* Test Item Value Reference Range Interpretation Comments Urine Barbiturates Screen (test code = 816858426) NEGATIVE NEGA TIVE [facility] HospitalUrine phencyclidine detection by screening lnfmef8897-35-24 06:00:00* Test Item Value Reference Range Interpretation Comments Urine Phencyclidine Screen (test code = 96294-4) NEGATIVE NEGAT [place] [facility] HospitalUrine amphetamines detection by screen method > 1000 ng/aD9074-39-52 06:00:00* Test Item Value Reference Range Interpretation Comments Urine Amphetamines Screen (test code = 10207-8) NEGATIVE NEGATI VE [facility] HospitalFluoroscopic procedure less than one hour kwquxebv6366-60-87 06:00:00* Test Item Value Reference Range Interpretation Comments Urine Methamphetamines Screen (test code = Urine Metha mphetamines Screen) NEGATIVE NEGATIVE [facility] HospitalUrine benzodiazepines detection by screening nltrjy5780-74-81 06:00:00* Test Item Value Reference Range Interpretation Comments Urine Benzodiazepines Screen (test code = 62412-0) NEGATIVE NEG ATIVE [facility] HospitalUrine cocaine measurement (mass/volume) 2019-10-05 06:00:00* Test Item Value Reference Range Interpretation Comments Urine Cocaine Screen (test code = 3398-5) NEGATIVE NEGATIVE [facility] HospitalUrine cannabinoids detection by screening uihwmc6257-12-39 06:00:00* Test Item Value Reference Range Interpretation Comments Urine Cannabinoids Screen (test code = 26941-0) POSITIVE NEGATI VE This test provides only a screen. Positive results should be repeated by a confi rmatory test.[facility] HospitalUrine methadone screen 2019-10-05 06:00:00* Test Item Value Reference Range Interpretation Comments Urine Methadone Screen (test code = 53869-9) NEGATIVE NEGATIVE THESE RESULTS ARE FOR MEDICAL TREATMENT ONLYTHIS REPORT CONTAINS UNCONFIR MED SCREENING RESULTS*POSITIVE RESULTS WILL BE CONFIRMED BY REFERENCE LAB UPON R EQUEST CUT-OFFDRUG CLASS CONCENTRATION ng/mLAmphetamines 1000Methamphetamines 1000Cocaine Metabolite 300Opiate 300Phencyc lidine 25Cannabinoid 50Barbiturates 300Benzodiazepine 300Methadone 300[facility] Center[facility] urobilinogen measurement by test strip (mass/volume)2019-10-05 06:00:00* Test Item Value Reference Range Interpretation Comments Urine Urobilinogen (test code = 63513-5) 0.2 0.2-1 [facility] HospitalUrine total bilirubin measurement (mass/volume)2019-10-05 06:00:00* Test Item Value Reference Range Interpretation Comments Urine Bilirubin (test code = 1978-6) NEGATIVE NEGATIVE [facility] HospitalUrine erythrocytes pveklargf0185-26-87 06:00:00* Test Item Value Reference Range Interpretation Comments Urine Blood (test code = 78016-4) TRACE NEGATIVE [facility] HospitalAutomated urine sediment leukocyte count by microscopy (number/high power field)2019-10-05 06:00:00* Test Item Value Reference Range Interpretation Comments Urine WBC (test code = 5821-4) 0-5 0-5 [facility] HospitalErythrocytes detection in urine sediment by light yehtzkkmos9516-29-03 06:00:00* Test Item Value Reference Range Interpretation Comments Urine RBC (test code = 18805-9) 0-5 0-5 [facility] HospitalBacteria detection in urine sediment by light hugopffmbt9942-48-32 06:00:00* Test Item Value Reference Range Interpretation Comments Urine Bacteria (test code = 01294-6) RARE NONE [facility] HospitalEpithelial cells detection in urine sediment by light hzepdbqwqh7913-58-72 06:00:00* Test Item Value Reference Range Interpretation Comments Urine Epithelial Cells (test code = 43419-8) RARE NONE [facility] HospitalProthrombin time (PT) in platelet poor plasma by coagulation nffxf5312-47-67 05:08:00* Test Item Value Reference Range Interpretation Comments Prothrombin Time (test code = 5902-2) 13.4 11.9-14.5 [facility] HospitalINR in Platelet poor plasma by Coagulation xyhxw9346-88-36 05:08:00* Test Item Value Reference Range Interpretation Comments Prothromb Time International Ratio (test code = 6301-6) 0.96 Oral Anticoagulant Therapy INR Values:1. Low Intensity Therapy 1.5 - 2.02 . Moderate Intensity Therapy 2.0 - 3.03. High Intensity Therapy(1) 2.5 - 3. 54. High Intensity Therapy(2) 3.0 - 4.05. Panic Value INR > 5.0 [facility] HospitalCT [facility]BDOM[facility]/PELVIS [id number] 12:03:00 [facility] [address] [address] Patient Name: BREE LINDSAY MR #: [id number] : 1975 Age/Sex: 43/M Req #: [id number] Adm Physician: ISACC JAVED MD Ordered by: LU SADLER DO Rep ort #: [id number] Location: MED/SURG Room/B ed: 115-1 Procedure: [id number] CT/CT ABDOMEN/ PELVIS W Exam Date: 10/04/19 [...] Bilirubin (test code = 1975-2) 0.4 0.2-1.2 [facility] HospitalFluoroscopic procedure less than one hour dzqcwcds0557-70-85 06:25:00* Test Item Value Reference Range Interpretation Comments Aspartate Amino Transf (AST/SGOT) (test code = Aspartate Amino Transf (AST/SGOT)) 20 5-34 [facility]erum or plasma alanine aminotransferase measurement (enzymatic activity/volume)2019-10-04 06:25:00* Test Item Value Reference Range Interpretation Comments Alanine Aminotransferase (ALT/SGPT) (test code = 1742-6) 15 0-55 [facility] Hospitalerum or plasma protein measurement (mass/volume)2019-10-04 06:25:00* Test Item Value Reference Range Interpretation Comments Total Protein (test code = 2885-2) 7.2 6.5-8.1 [facility]erum or plasma albumin measurement (mass/volume)2019-10-04 06:25:00* Test Item Value Reference Range Interpretation Comments Albumin (test code = 1751-7) 3.9 3.5-5.0 [facility] HospitalPlasma globulin measurement (mass/volume) 2019-10-04 06:25:00* Test Item Value Reference Range Interpretation Comments Globulin (test code = 40835-0) 3.3 2.3-3.5 [facility]erum or plasma albumin/globulin mass dlgzr3462-69-62 06:25:00* Test Item Value Reference Range Interpretation Comments Albumin/Globulin Ratio (test code = 1759-0) 1.2 0.8-2.0 [facility]erum or plasma alkaline phosphatase measurement (enzymatic activity/volume)2019-10-04 06:25:00* Test Item Value Reference Range Interpretation Comments Alkaline Phosphatase (test code = 6768-6) 90 40-150 [facility] HospitalFluoroscopic procedure less than one hour wrngfjxh4257-50-10 01:50:00* Test Item Value Reference Range Interpretation [...] under 564(g) of the ACT.Testing performed by [facility] [place] [id number] [place], [place] [address]CT ABDOMEN/PELVIS Y1490-97-27 12:40:00 [facility] [address] [address] Patient Name: BREE LINDSAY MR #: [id number] : 1975 Age/Sex: 43/M Req #: [id number] Adm Physician: Ordered by: STACIE FALLON, JEANNIE FALLON Report #: [id number] Location: [facility] o/Bed: Procedure: [id number] CT/CT ABD OMEN/PELVIS W Exam Date: 09/30/19 [...] (PT) in platelet poor plasma by coagulation raoxz8643-37-03 09:55:00* Test Item Value Reference Range Interpretation Comments Prothrombin Time (test code = 5902-2) 13.3 11.9-14.5 [facility] HospitalINR in Platelet poor plasma by Coagulation djdtr4247-24-24 09:55:00* Test Item Value Reference Range Interpretation Comments Prothromb Time International Ratio (test code = 6301-6) 0.96 Oral Anticoagulant Therapy INR Values:1. Low Intensity Therapy 1.5 - 2.02 . Moderate Intensity Therapy 2.0 - 3.03. High Intensity Therapy(1) 2.5 - 3. 54. High Intensity Therapy(2) 3.0 - 4.05. Panic Value INR > 5.0 [facility] HospitalActivated partial thromboplastin time (aPTT) in platelet poor plasma by coagulation maggy7669-09-26 09:55:00* Test Item Value Reference Range Interpretation Comments Activated Partial Thromboplast Time (test code = 48734-0) 26.1 23.8-35.5 [facility]erum or plasma sodium measurement (moles/volume)2019-09-30 09:55:00* Test Item Value Reference Range Interpretation Comments Sodium Level (test code = 2951-2) 142 136-145 [facility]erum or plasma potassium measurement (moles/volume)2019-09-30 09:55:00* Test Item Value Reference Range Interpretation Comments Potassium Level (test code = 2823-3) 3.9 3.5-5.1 [facility]er[facility] or plasma chloride measurement (moles/volume)2019-09-30 09:55:00* Test Item Value Reference Range Interpretation Comments Chloride Level (test code = 2075-0) 103 98-107 [facility]erum or plasma carbon dioxide, total measurement (moles/volume)2019-09-30 09:55:00* Test Item Value Reference Range Interpretation Comments Carbon Dioxide Level (test code = 2028-9) 30 22-29 [facility]erum or plasma anion hrb0672-49-75 09:55:00* Test Item Value Reference Range Interpretation Comments Anion Gap (test code = 43597-7) 12.9 8-16 [facility]erum or plasma urea nitrogen measurement (mass/volume)2019-09-30 09:55:00* Test Item Value Reference Range Interpretation Comments Blood Urea Nitrogen (test code = 3094-0) 13 7-26 [facility]erum or plasma creatinine measurement (mass/volume)2019-09-30 09:55:00* Test Item Value Reference Range Interpretation Comments Creatinine (test code = 2160-0) 1.18 0.72-1.25 [facility]erum or plasma urea nitrogen/creatinine mass gdfpf1562-12-96 09:55:00* Test Item Value Reference Range Interpretation Comments BUN/Creatinine Ratio (test code = 3097-3) 11 6-25 [facility] HospitalEstimated glomerular filtration rate (GFR) yovvvbszneogo2439-06-78 09:55:00* Test Item Value Reference Range Interpretation Comments Estimat Glomerular Filtration Rate (test code = 240754827) > 60 >60 Ranges were taken from the National Kidney Disease Education Program and the [facility] Foundation literature.Reference ranges:60 or greater: Xkfxmc35-34 ( for 3 consecutive months): Chronic kidney disease 15 or less: Kidney failureStephens Memorial HospitalGlucose ewbbdvhwjbr4309-13-57 09:55:00* Test Item Value Reference Range Interpretation Comments Glucose Level (test code = OLC9795) 328 74-118 [facility]erum or plasma calcium measurement (mass/volume)2019-09-30 09:55:00* Test Item Value Reference Range Interpretation Comments Calcium Level (test code = 25293-8) 8.8 8.4-10.2 [facility] HospitalFluoroscopic procedure less than one hour rgaiqrzx2315-90-43 09:55:00* Test Item Value Reference Range Interpretation Comments Lactic Acid Level (test code = Lactic Acid Level) 1.0 0.5- 2.0 [facility]erum or plasma total bilirubin measurement (mass/volume)2019-09-30 09:55:00* Test Item Value Reference Range Interpretation Comments Total Bilirubin (test code = 1975-2) 0.5 0.2-1.2 [facility] HospitalFluoroscopic procedure less than one hour vlzzsmpw6345-83-87 09:55:00* Test Item Value Reference Range Interpretation Comments Aspartate Amino Transf (AST/SGOT) (test code = Aspartate Amino Transf (AST/SGOT)) 16 5-34 [facility] Hospitalerum or plasma alanine aminotransferase measurement (enzymatic activity/volume)2019-09-30 09:55:00* Test Item Value Reference Range Interpretation Comments Alanine Aminotransferase (ALT/SGPT) (test code = 1742-6) 15 0-55 [facility]erum or plasma protein measurement (mass/volume)2019-09-30 09:55:00* Test Item Value Reference Range Interpretation Comments Total Protein (test code = 2885-2) 6.4 6.5-8.1 [facility]erum or plasma albumin measurement (mass/volume)2019-09-30 09:55:00* Test Item Value Reference Range Interpretation Comments Albumin (test code = 1751-7) 3.4 3.5-5.0 [facility] HospitalPlasma globulin measurement (mass/volume) 2019-09-30 09:55:00* Test Item Value Reference Range Interpretation Comments Globulin (test code = 36618-0) 3.0 2.3-3.5 [facility]er[facility] or plasma albumin/globulin mass rwewk2784-11-18 09:55:00* Test Item Value Reference Range Interpretation Comments Albumin/Globulin Ratio (test code = 1759-0) 1.1 0.8-2.0 [facility]erum or plasma alkaline phosphatase measurement (enzymatic activity/volume)2019-09-30 09:55:00* Test Item Value Reference Range Interpretation Comments Alkaline Phosphatase (test code = 6768-6) 92 40-150 [facility]erum or plasma creatine kinase measurement (enzymatic activity/volume)2019-09-30 09:55:00* Test Item Value Reference Range Interpretation Comments Creatine Kinase (test code = 2157-6) 365 30-200 [facility]erum or plasma creatine kinase MB measurement (mass/volume)2019-09-30 09:55:00* Test Item Value Reference Range Interpretation Comments Creatine Kinase MB (test code = 27816-9) 1.50 0-5.0 [facility] HospitalTroponin I measurement by highly sensitive enzyme bkiajlnapqi5475-24-95 09:55:00* Test Item Value Reference Range Interpretation Comments Troponin I (test code = 82714-6) 0.001 0-0.300 [facility]er[facility] or plasma amylase measurement (enzymatic activity/volume)2019-09-30 09:55:00* Test Item Value Reference Range Interpretation Comments Amylase Level (test code = 1798-8) 49 25-125 [facility]er[facility] or plasma lipase measurement (enzymatic activity/volume)2019-09-30 09:55:00* Test Item Value Reference Range Interpretation Comments Lipase (test code = 3040-3) < 4 8-78 [facility] HospitalActivated partial thromboplastin time (aPTT) in platelet poor plasma by coagulation iunaz1349-72-77 09:55:00* Test Item Value Reference Range Interpretation Comments Activated Partial Thromboplast Time (test code = 20113-4) 26.1 23.8-35.5 [facility] HospitalFluoroscopic procedure less than one hour mujpjxbu7167-40-25 09:55:00* Test Item Value Reference Range Interpretation Comments Lactic Acid Level (test code = Lactic Acid Level) 1.0 0.5- 2.0 [facility]er[facility] or plasma creatine kinase measurement (enzymatic activity/volume)2019-09-30 09:55:00* Test Item Value Reference Range Interpretation Comments Creatine Kinase (test code = 2157-6) 365 30-200 [facility]erum or plasma creatine kinase MB measurement (mass/volume)2019-09-30 09:55:00* Test Item Value Reference Range Interpretation Comments Creatine Kinase MB (test code = 69006-1) 1.50 0-5.0 [facility] HospitalTroponin I measurement by highly sensitive enzyme acrfsavmxku2968-43-47 09:55:00* Test Item Value Reference Range Interpretation Comments Troponin I (test code = 49285-1) 0.001 0-0.300 [facility]er[facility] or plasma amylase measurement (enzymatic activity/volume)2019-09-30 09:55:00* Test Item Value Reference Range Interpretation Comments Amylase Level (test code = 1798-8) 49 25-125 [facility]erum or plasma lipase measurement (enzymatic activity/volume)2019-09-30 09:55:00* Test Item Value Reference Range Interpretation Comments Lipase (test code = 3040-3) < 4 8-78 [facility] HospitalCHEST SINGLE (PORTABLE)2019-09-30 09:23:00 [facility] [address] [place] [address] Patient Name: BREE LINDSAY MR #: [id number] : 1975 Age/Sex: 43/M Req #: [id number] Adm Physician: Ordered by: JEANNIE QUINONES MD, MD Report #: [id number] Location: ER Room/Bed: Procedure: [id number] DX/CHEST SINGLE (PORTABLE) Exam Date: 09/30/19 Exam Time: 083 5 REPORT STATUS: Signed EXAMINAT ION: CHEST SINGLE (PORTABLE) INDICATION: ERMD ORDER [id number] Y COMPARISON: Chest radiograph 07/23/2019, [...] Count (test code = 6690-2) 9.64 4.8-10.8 [facility] HospitalBlood erythrocytes automated count (number/volume)2019-09-30 09:10:00* Test Item Value Reference Range Interpretation Comments Red Blood Count (test code = 789-8) 3.70 4.3-5.7 [facility] HospitalBlood hemoglobin measurement (moles/volume)2019-09-30 09:10:00* Test Item Value Reference Range Interpretation Comments Hemoglobin (test code = 77450-4) 10.4 14.0-18.0 [facility] HospitalAutomated blood hematocrit (volume fraction)2019-09-30 09:10:00* Test Item Value Reference Range Interpretation Comments Hematocrit (test code = 4544-3) 32.9 38.2-49.6 [facility] HospitalAutomated erythrocyte mean corpuscular xwoyvr5847-02-10 09:10:00* Test Item Value Reference Range Interpretation Comments Mean Corpuscular Volume (test code = 787-2) 88.9 81-99 [facility] HospitalAutomated erythrocyte mean corpuscular hemoglobin (mass per erythrocyte)2019-09-30 09:10:00* Test Item Value Reference Range Interpretation Comments Mean Corpuscular Hemoglobin (test code = 785-6) 28.1 28-32 [facility] HospitalAutomated erythrocyte mean corpuscular hemoglobin concentration measurement (mass/volume)2019-09-30 09:10:00* Test Item Value Reference Range Interpretation Comments Mean Corpuscular Hemoglobin Concent (test code = 786-4) 31.6 31-35 [facility] HospitalRDW KrzDd-Gpx5949-23-03 09:10:00* Test Item Value Reference Range Interpretation Comments Red Cell Distribution Width (test code = 29063-5) 14.0 11.7 -14.4 [facility] HospitalAutomated blood platelet count (count/volume)2019-09-30 09:10:00* Test Item Value Reference Range Interpretation Comments Platelet Count (test code = 777-3) 263 140-360 [facility] blood segmented neutrophil count as percentage of total ztqbnlnmnn5052-39-98 09:10:00* Test Item Value Reference Range Interpretation Comments Neutrophils (%) (Auto) (test code = 90296-5) 80.4 38.7-80.0 [facility] HospitalAutomated blood lymphocyte count as percentage ot total cotvjftgmz5496-87-65 09:10:00* Test Item Value Reference Range Interpretation Comments Lymphocytes (%) (Auto) (test code = 736-9) 11.5 18.0-39.1 [facility] HospitalAutomated blood monocyte count as percentage of total zaorblznjo0748-95-73 09:10:00* Test Item Value Reference Range Interpretation Comments Monocytes (%) (Auto) (test code = 5905-5) 6.3 4.4-11.3 [facility] HospitalAutomated blood eosinophil count as percentage of total ghuhfgdlwv8759-79-83 09:10:00* Test Item Value Reference Range Interpretation Comments Eosinophils (%) (Auto) (test code = 713-8) 0.7 0.0-6.0 [facility] blood basophil count as percentage of total qnbfdadobv6891-68-42 09:10:00* Test Item Value Reference Range Interpretation Comments Basophils (%) (Auto) (test code = 706-2) 0.8 0.0-1.0 [facility] HospitalFluoroscopic procedure less than one hour qscivypr3684-07-90 09:10:00* Test Item Value Reference Range Interpretation Comments IM GRANULOCYTES % (test code = IM GRANULOCYTES %) 0.3 0.0- 1.0 [facility] HospitalAutomated blood neutrophil count 2019-09-30 09:10:00* Test Item Value Reference Range Interpretation Comments Neutrophils # (Auto) (test code = 751-8) 7.7 2.1-6.9 [facility] HospitalBlood lymphocytes count (number/volume) 2019-09-30 09:10:00* Test Item Value Reference Range Interpretation Comments Lymphocytes # (Auto) (test code = 51287-8) 1.1 1.0-3.2 [facility] HospitalBlood monocytes automated count (number/volume)2019-09-30 09:10:00* Test Item Value Reference Range Interpretation Comments Monocytes # (Auto) (test code = 742-7) 0.6 0.2-0.8 [facility] HospitalAutomated blood eosinophil count 2019-09-30 09:10:00* Test Item Value Reference Range Interpretation Comments Eosinophils # (Auto) (test code = 711-2) 0.1 0.0-0.4 [facility] HospitalAutomated blood basophil count (count/volume)2019-09-30 09:10:00* Test Item Value Reference Range Interpretation Comments Basophils # (Auto) (test code = 704-7) 0.1 0.0-0.1 [facility] HospitalFluoroscopic procedure less than one hour jvlsknkl9008-56-37 09:10:00* Test Item Value Reference Range Interpretation Comments Absolute Immature Granulocyte (auto (zeenat t code = Absolute Immature Granulocyte (auto) 0.03 0-0.1 [facility] HospitalBlood cbqkfel9160-03-33 09:10:00* Test Item Value Reference Range Interpretation Comments Blood Culture (test code = 69315948) NO GROWTH AFTER 5 DAYS, FINAL REPORT [facility] HospitalUrine color yrhyppcoiaezd7879-60-90 08:44:00* Test Item Value Reference Range Interpretation Comments Urine Color (test code = 5778-6) YELLOW YELLOW [facility] HospitalUrine bxrzvkp3353-36-53 08:44:00* Test Item Value Reference Range Interpretation Comments Urine Clarity (test code = 79149-2) CLEAR CLEAR [facility]pecific [facility] Urine by Test strip 2019-09-30 08:44:00* Test Item Value Reference Range Interpretation Comments Urine Specific [place] (test code = 5811-5) 1.025 1.010-1.02 5 [facility] HospitalUrine pH measurement by automated test hcnro6729-17-68 08:44:00* Test Item Value Reference Range Interpretation Comments Urine pH (test code = 85997-5) 7 5-7 [facility] HospitalUrine leukocyte esterase detection by tgdgmqtl1994-59-16 08:44:00* Test Item Value Reference Range Interpretation Comments Urine Leukocyte Esterase (test code = 5799-2) NEGATIVE NEGATIVE [facility] HospitalUrine nitrite jncrnwubh6290-67-04 08:44:00* Test Item Value Reference Range Interpretation Comments Urine Nitrite (test code = 28796-2) NEGATIVE NEGATIVE [facility] HospitalUrine protein measurement by test strip (mass/volume)2019-09-30 08:44:00* Test Item Value Reference Range Interpretation Comments Urine Protein (test code = 5804-0) 1+ NEGATIVE [facility] HospitalUrine glucose nzawlmesb3480-51-68 08:44:00* Test Item Value Reference Range Interpretation Comments Urine Glucose (UA) (test code = 2349-9) 2+ NEGATIVE [facility] HospitalUrine ketones detection by automated test mzsfd4503-19-35 08:44:00* Test Item Value Reference Range Interpretation Comments Urine Ketones (test code = 42324-3) 2+ NEGATIVE [facility] HospitalUrine opiates screening uftu7977-84-51 08:44:00* Test Item Value Reference Range Interpretation Comments Urine Opiates Screen (test code = 77381-6) POSITIVE NEGATIVE This test provides only a screen. Positive results should be repeated by a confi rmatory test.[facility] HospitalBarbiturates screen, urine 2019-09-30 08:44:00* Test Item Value Reference Range Interpretation Comments Urine Barbiturates Screen (test code = 194028379) NEGATIVE NEGA TIVE [facility] HospitalUrine phencyclidine detection by screening qmihjl5082-74-58 08:44:00* Test Item Value Reference Range Interpretation Comments Urine Phencyclidine Screen (test code = 68001-5) NEGATIVE NEGAT GILSON [facility] HospitalUrine amphetamines detection by screen method > 1000 ng/pE3521-91-25 08:44:00* Test Item Value Reference Range Interpretation Comments Urine Amphetamines Screen (test code = 78295-5) NEGATIVE NEGATI VE [facility] HospitalFluoroscopic procedure less than one hour obdeysfm2175-32-73 08:44:00* Test Item Value Reference Range Interpretation Comments Urine Methamphetamines Screen (test code = Urine Metha mphetamines Screen) NEGATIVE NEGATIVE [facility] HospitalUrine benzodiazepines detection by screening ghhoix0388-64-17 08:44:00* Test Item Value Reference Range Interpretation Comments Urine Benzodiazepines Screen (test code = 67769-1) POSITIVE NEG ATIVE This test provides only a screen. Positive results should be repeated by a confi rmatory test.[facility] HospitalUrine cocaine measurement (mass/volume)2019-09-30 08:44:00* Test Item Value Reference Range Interpretation Comments Urine Cocaine Screen (test code = 3398-5) NEGATIVE NEGATIVE [facility] HospitalUrine cannabinoids detection by screening qqjyih7559-77-84 08:44:00* Test Item Value Reference Range Interpretation Comments Urine Cannabinoids Screen (test code = 17569-6) POSITIVE NEGATI VE This test provides only a screen. Positive results should be repeated by a confi rmatory test.[facility] HospitalUrine methadone screen 2019-09-30 08:44:00* Test Item Value Reference Range Interpretation Comments Urine Methadone Screen (test code = 22443-2) NEGATIVE NEGATIVE THESE RESULTS ARE FOR MEDICAL TREATMENT ONLYTHIS REPORT CONTAINS UNCONFIR MED SCREENING RESULTS*POSITIVE RESULTS WILL BE CONFIRMED BY REFERENCE LAB UPON R EQUEST CUT-OFFDRUG CLASS CONCENTRATION ng/mLAmphetamines 1000Methamphetamines 1000Cocaine Metabolite 300Opiate 300Phencyc lidine 25Cannabinoid 50Barbiturates 300Benzodiazepine 300Methadone 300[facility] HospitalUrine urobilinogen measurement by test strip (mass/volume)2019-09-30 08:44:00* Test Item Value Reference Range Interpretation Comments Urine Urobilinogen (test code = 16757-4) 0.2 0.2-1 [facility] HospitalUrine total bilirubin measurement (mass/volume)2019-09-30 08:44:00* Test Item Value Reference Range Interpretation Comments Urine Bilirubin (test code = 1978-6) NEGATIVE NEGATIVE [facility] HospitalUrine erythrocytes ufvnejrji6779-95-72 08:44:00* Test Item Value Reference Range Interpretation Comments Urine Blood (test code = 65126-9) TRACE NEGATIVE [facility] HospitalAutomated urine sediment leukocyte count by microscopy (number/high power field)2019-09-30 08:44:00* Test Item Value Reference Range Interpretation Comments Urine WBC (test code = 5821-4) 21-50 0-5 [facility] HospitalErythrocytes detection in urine sediment by light kirmejfkqh2429-75-88 08:44:00* Test Item Value Reference Range Interpretation Comments Urine RBC (test code = 44683-2) 6-10 0-5 [facility] HospitalBacteria detection in urine sediment by light gulzcastyg8741-96-46 08:44:00* Test Item Value Reference Range Interpretation Comments Urine Bacteria (test code = 77445-3) FEW NONE [facility] HospitalEpithelial cells detection in urine sediment by light bjxgyvenop9478-86-13 08:44:00* Test Item Value Reference Range Interpretation Comments Urine Epithelial Cells (test code = 37719-9) RARE NONE [facility] HospitalCapillary blood glucose measurement by glucometer (mass/volume)2019-09-24 07:23:00* Test Item Value Reference Range Interpretation Comments Bedside Glucose (test code = 54276-2) 83 70-120 Meter ID: [id number] Memorial HospitalCapillary blood glucose measurement by glucometer (mass/volume)2019-09-24 07:23:00* Test Item Value Reference Range Interpretation Comments Bedside Glucose (test code = 03567-3) 83 70-120 Meter ID: [id number] Memorial HospitalCapillary blood glucose measurement by glucometer (mass/volume)2019-09-24 07:23:00* Test Item Value Reference Range Interpretation Comments Bedside Glucose (test code = 12199-9) 83 70-120 Meter ID: [id number] Memorial HospitalTroponin I measurement by highly sensitive enzyme nylsqdvqogp9124-03-81 09:58:00* Test Item Value Reference Range Interpretation Comments Troponin I (test code = 21827-5) 0.016 0-0.300 [facility] HospitalTroponin I measurement by highly sensitive enzyme fxdscqrpzcg1890-68-33 09:58:00* Test Item Value Reference Range Interpretation Comments Troponin I (test code = 38154-8) 0.016 0-0.300 [facility] HospitalBlood leukocytes automated count (number/volume)2019-09-23 05:42:00* Test Item Value Reference Range Interpretation Comments White Blood Count (test code = 6690-2) 8.62 4.8-10.8 [facility] HospitalBlood erythrocytes automated count (number/volume)2019-09-23 05:42:00* Test Item Value Reference Range Interpretation Comments Red Blood Count (test code = 789-8) 3.57 4.3-5.7 [facility] hemoglobin measurement (moles/volume)2019-09-23 05:42:00* Test Item Value Reference Range Interpretation Comments Hemoglobin (test code = 48092-6) 10.3 14.0-18.0 [facility] HospitalAutomated blood hematocrit (volume fraction)2019-09-23 05:42:00* Test Item Value Reference Range Interpretation Comments Hematocrit (test code = 4544-3) 32.2 38.2-49.6 [facility] HospitalAutomated erythrocyte mean corpuscular cfcarw2990-76-23 05:42:00* Test Item Value Reference Range Interpretation Comments Mean Corpuscular Volume (test code = 787-2) 90.2 81-99 [facility] HospitalAutomated erythrocyte mean corpuscular hemoglobin (mass per erythrocyte)2019-09-23 05:42:00* Test Item Value Reference Range Interpretation Comments Mean Corpuscular Hemoglobin (test code = 785-6) 28.9 28-32 [facility] HospitalAutomated erythrocyte mean corpuscular hemoglobin concentration measurement (mass/volume)2019-09-23 05:42:00* Test Item Value Reference Range Interpretation Comments Mean Corpuscular Hemoglobin Concent (test code = 786-4) 32.0 31-35 [facility] HospitalRDW TdjYt-Bmt1432 05:42:00* Test Item Value Reference Range Interpretation Comments Red Cell Distribution Width (test code = 16749-0) 13.7 11.7 -14.4 [facility] HospitalAutomated blood platelet count (count/volume)2019-09-23 05:42:00* Test Item Value Reference Range Interpretation Comments Platelet Count (test code = 777-3) 183 140-360 [facility] HospitalAutat[facility] kannapolised blood segmented neutrophil count as percentage of total nrwebfhngh6871-61-60 05:42:00* Test Item Value Reference Range Interpretation Comments Neutrophils (%) (Auto) (test code = 35469-2) 78.4 38.7-80.0 [facility] HospitalAutomated blood lymphocyte count as percentage ot total ozxmbfiuof2625-76-67 05:42:00* Test Item Value Reference Range Interpretation Comments Lymphocytes (%) (Auto) (test code = 736-9) 13.1 18.0-39.1 [facility] HospitalAutomated blood monocyte count as percentage of total nktyuqbscg8836-14-96 05:42:00* Test Item Value Reference Range Interpretation Comments Monocytes (%) (Auto) (test code = 5905-5) 7.7 4.4-11.3 [facility] HospitalAutat[facility] health kannapolised blood eosinophil count as percentage of total yooncsivre5145-56-73 05:42:00* Test Item Value Reference Range Interpretation Comments Eosinophils (%) (Auto) (test code = 713-8) 0.1 0.0-6.0 [facility] HospitalAutomated blood basophil count as percentage of total ytwmqbnybg5416-28-30 05:42:00* Test Item Value Reference Range Interpretation Comments Basophils (%) (Auto) (test code = 706-2) 0.5 0.0-1.0 [facility] HospitalFluoroscopic procedure less than one hour tufpwclp3284-17-07 05:42:00* Test Item Value Reference Range Interpretation Comments IM GRANULOCYTES % (test code = IM GRANULOCYTES %) 0.2 0.0- 1.0 [facility] HospitalAutomated blood neutrophil count 2019-09-23 05:42:00* Test Item Value Reference Range Interpretation Comments Neutrophils # (Auto) (test code = 751-8) 6.8 2.1-6.9 [facility] HospitalBlood lymphocytes count (number/volume) 2019-09-23 05:42:00* Test Item Value Reference Range Interpretation Comments Lymphocytes # (Auto) (test code = 53944-5) 1.1 1.0-3.2 [facility]Bl[facility] monocytes automated count (number/volume)2019-09-23 05:42:00* Test Item Value Reference Range Interpretation Comments Monocytes # (Auto) (test code = 742-7) 0.7 0.2-0.8 [facility] HospitalAutomated blood eosinophil count 2019-09-23 05:42:00* Test Item Value Reference Range Interpretation Comments Eosinophils # (Auto) (test code = 711-2) 0.0 0.0-0.4 [facility] HospitalAutomated blood basophil count (count/volume)2019-09-23 05:42:00* Test Item Value Reference Range Interpretation Comments Basophils # (Auto) (test code = 704-7) 0.0 0.0-0.1 [facility] HospitalFluoroscopic procedure less than one hour bzkqsuwu3676-56-45 05:42:00* Test Item Value Reference Range Interpretation Comments Absolute Immature Granulocyte (auto (zeenat t code = Absolute Immature Granulocyte (auto) 0.02 0-0.1 [facility] sodium [facility] (moles/volume)2019-09-23 05:42:00* Test Item Value Reference Range Interpretation Comments Sodium Level (test code = 2951-2) 138 136-145 [facility] potassium measurement (moles/volume)2019-09-23 05:42:00* Test Item Value Reference Range Interpretation Comments Potassium Level (test code = 2823-3) 3.6 3.5-5.1 [facility] chloride measurement (moles/volume)2019-09-23 05:42:00* Test Item Value Reference Range Interpretation Comments Chloride Level (test code = 2075-0) 101 98-107 [facility]er[facility] plasma carbon dioxide, total measurement (moles/volume)2019-09-23 05:42:00* Test Item Value Reference Range Interpretation Comments Carbon Dioxide Level (test code = 2028-9) 28 22-29 [facility]erum [facility] plasma anion nlj4489-92-81 05:42:00* Test Item Value Reference Range Interpretation Comments Anion Gap (test code = 24467-8) 12.6 8-16 [facility] urea nitrogen measurement (mass/volume)2019-09-23 05:42:00* Test Item Value Reference Range Interpretation Comments Blood Urea Nitrogen (test code = 3094-0) 22 7- [facility] creatinine measurement (mass/volume)2019-09-23 05:42:00* Test Item Value Reference Range Interpretation Comments Creatinine (test code = 2160-0) 1.16 0.72-1.25 [facility]er[facility] urea nitrogen/creatinine mass bcwzf8936-27-34 05:42:00* Test Item Value Reference Range Interpretation Comments BUN/Creatinine Ratio (test code = 3097-3) 19 6-25 [facility] HospitalEstimated glomerular filtration rate (GFR) luhnrdaibcfpc3623-24-74 05:42:00* Test Item Value Reference Range Interpretation Comments Estimat Glomerular Filtration Rate (test code = 705303775) > 60 >60 Ranges were taken from the National Kidney Disease Education Program and the [facility] Foundation literature.Reference ranges:60 or greater: Fucoho83-85 ( for 3 consecutive months): Chronic kidney disease 15 or less: Kidney failureStephens Memorial HospitalGlucose vxibfmfxamt4525-73-74 05:42:00* Test Item Value Reference Range Interpretation Comments Glucose Level (test code = GME0581) 266 74-118 [facility] calcium measurement (mass/volume)2019-09-23 05:42:00* Test Item Value Reference Range Interpretation Comments Calcium Level (test code = 62018-2) 8.3 8.4-10.2 [facility]er[facility] plasma total bilirubin measurement (mass/volume)2019-09-23 05:42:00* Test Item Value Reference Range Interpretation Comments Total Bilirubin (test code = 1975-2) 0.4 0.2-1.2 [facility] HospitalFluoroscopic procedure less than one hour ynbwrndp4887-36-06 05:42:00* Test Item Value Reference Range Interpretation Comments Aspartate Amino Transf (AST/SGOT) (test code = Aspartate Amino Transf (AST/SGOT)) 14 5-34 [facility]erum or plasma alanine aminotransferase measurement (enzymatic activity/volume)2019-09-23 05:42:00* Test Item Value Reference Range Interpretation Comments Alanine Aminotransferase (ALT/SGPT) (test code = 1742-6) 14 0-55 [facility]er[facility] plasma protein measurement (mass/volume)2019-09-23 05:42:00* Test Item Value Reference Range Interpretation Comments Total Protein (test code = 2885-2) 6.2 6.5-8.1 [facility]er[facility] albumin measurement (mass/volume)2019-09-23 05:42:00* Test Item Value Reference Range Interpretation Comments Albumin (test code = 1751-7) 3.4 3.5-5.0 [facility] HospitalPlasma globulin measurement (mass/volume) 2019-09-23 05:42:00* Test Item Value Reference Range Interpretation Comments Globulin (test code = 35467-8) 2.8 2.3-3.5 [facility]er[facility] plasma albumin/globulin mass nyvak4398-30-05 05:42:00* Test Item Value Reference Range Interpretation Comments Albumin/Globulin Ratio (test code = 1759-0) 1.2 0.8-2.0 [facility]er[facility] plasma alkaline phosphatase measurement (enzymatic activity/volume)2019-09-23 05:42:00* Test Item Value Reference Range Interpretation Comments Alkaline Phosphatase (test code = 6768-6) 108 40-150 [facility] HospitalBlood leukocytes automated count (number/volume)2019-09-23 05:42:00* Test Item Value Reference Range Interpretation Comments White Blood Count (test code = 6690-2) 8.62 4.8-10.8 [facility] HospitalBlood erythrocytes automated count (number/volume)2019-09-23 05:42:00* Test Item Value Reference Range Interpretation Comments Red Blood Count (test code = 789-8) 3.57 4.3-5.7 [facility] HospitalBlood hemoglobin measurement (moles/volume)2019-09-23 05:42:00* Test Item Value Reference Range Interpretation Comments Hemoglobin (test code = 52619-2) 10.3 14.0-18.0 [facility] HospitalAutomated blood hematocrit (volume fraction)2019-09-23 05:42:00* Test Item Value Reference Range Interpretation Comments Hematocrit (test code = 4544-3) 32.2 38.2-49.6 [facility] HospitalAutomated erythrocyte mean corpuscular zljmvt3285-35-09 05:42:00* Test Item Value Reference Range Interpretation Comments Mean Corpuscular Volume (test code = 787-2) 90.2 81-99 [facility] HospitalAutomated erythrocyte mean corpuscular hemoglobin (mass per erythrocyte)2019-09-23 05:42:00* Test Item Value Reference Range Interpretation Comments Mean Corpuscular Hemoglobin (test code = 785-6) 28.9 28-32 [facility] HospitalAutscotland memorial hospital erythrocyte mean corpuscular hemoglobin concentration measurement (mass/volume)2019-09-23 05:42:00* Test Item Value Reference Range Interpretation Comments Mean Corpuscular Hemoglobin Concent (test code = 786-4) 32.0 31-35 [facility] HospitalRDW PxeTg-Zss2571-48-26 05:42:00* Test Item Value Reference Range Interpretation Comments Red Cell Distribution Width (test code = 43803-5) 13.7 11.7 -14.4 [facility] (count/volume)2019-09-23 05:42:00* Test Item Value Reference Range Interpretation Comments Platelet Count (test code = 777-3) 183 140-360 [facility] HospitalAutatrium health kannapolised blood segmented neutrophil count as percentage of total xvtbwktgxx7571-07-36 05:42:00* Test Item Value Reference Range Interpretation Comments Neutrophils (%) (Auto) (test code = 45496-5) 78.4 38.7-80.0 [facility] HospitalAutat[facility] health kannapolised blood lymphocyte count as percentage ot total mhyckywlqe4808-27-11 05:42:00* Test Item Value Reference Range Interpretation Comments Lymphocytes (%) (Auto) (test code = 736-9) 13.1 18.0-39.1 [facility] HospitalAutomated blood monocyte count as percentage of total jepfynnkbb8374-99-82 05:42:00* Test Item Value Reference Range Interpretation Comments Monocytes (%) (Auto) (test code = 5905-5) 7.7 4.4-11.3 [facility] HospitalAutomated blood eosinophil count as percentage of total dgjpocqeca4599-68-17 05:42:00* Test Item Value Reference Range Interpretation Comments Eosinophils (%) (Auto) (test code = 713-8) 0.1 0.0-6.0 [facility] HospitalAutomated blood basophil count as percentage of total cvrxxandur0221-75-51 05:42:00* Test Item Value Reference Range Interpretation Comments Basophils (%) (Auto) (test code = 706-2) 0.5 0.0-1.0 [facility] HospitalFluoroscopic procedure less than one hour hbsraolr4235-24-32 05:42:00* Test Item Value Reference Range Interpretation Comments IM GRANULOCYTES % (test code = IM GRANULOCYTES %) 0.2 0.0- 1.0 [facility] HospitalAutomated blood neutrophil count 2019-09-23 05:42:00* Test Item Value Reference Range Interpretation Comments Neutrophils # (Auto) (test code = 751-8) 6.8 2.1-6.9 [facility] HospitalBlood lymphocytes count (number/volume) 2019-09-23 05:42:00* Test Item Value Reference Range Interpretation Comments Lymphocytes # (Auto) (test code = 71281-5) 1.1 1.0-3.2 [facility] HospitalBlood monocytes automated count (number/volume)2019-09-23 05:42:00* Test Item Value Reference Range Interpretation Comments Monocytes # (Auto) (test code = 742-7) 0.7 0.2-0.8 [facility] HospitalAutomated blood eosinophil count 2019-09-23 05:42:00* Test Item Value Reference Range Interpretation Comments Eosinophils # (Auto) (test code = 711-2) 0.0 0.0-0.4 [facility] HospitalAutomated blood basophil count (count/volume)2019-09-23 05:42:00* Test Item Value Reference Range Interpretation Comments Basophils # (Auto) (test code = 704-7) 0.0 0.0-0.1 [facility] HospitalFluoroscopic procedure less than one hour hjfzgjnc3334-92-47 05:42:00* Test Item Value Reference Range Interpretation Comments Absolute Immature Granulocyte (auto (zeenat t code = Absolute Immature Granulocyte (auto) 0.02 0-0.1 [facility]er[facility] plasma sodium measurement (moles/volume)2019-09-23 05:42:00* Test Item Value Reference Range Interpretation Comments Sodium Level (test code = 2951-2) 138 136-145 [facility]erum or plasma potassium measurement (moles/volume)2019-09-23 05:42:00* Test Item Value Reference Range Interpretation Comments Potassium Level (test code = 2823-3) 3.6 3.5-5.1 [facility]erum or plasma chloride measurement (moles/volume)2019-09-23 05:42:00* Test Item Value Reference Range Interpretation Comments Chloride Level (test code = 2075-0) 101 98-107 [facility]erum or plasma carbon dioxide, total measurement (moles/volume)2019-09-23 05:42:00* Test Item Value Reference Range Interpretation Comments Carbon Dioxide Level (test code = 2028-9) 28 22-29 [facility]erum or plasma anion pmo8735-11-22 05:42:00* Test Item Value Reference Range Interpretation Comments Anion Gap (test code = 79503-0) 12.6 8-16 [facility]er[facility] or plasma urea nitrogen measurement (mass/volume)2019-09-23 05:42:00* Test Item Value Reference Range Interpretation Comments Blood Urea Nitrogen (test code = 3094-0) 22 7-26 [facility]erum or plasma creatinine measurement (mass/volume)2019-09-23 05:42:00* Test Item Value Reference Range Interpretation Comments Creatinine (test code = 2160-0) 1.16 0.72-1.25 [facility]erum or plasma urea nitrogen/creatinine mass hufuz8344-24-58 05:42:00* Test Item Value Reference Range Interpretation Comments BUN/Creatinine Ratio (test code = 3097-3) 19 6-25 [facility] HospitalEstimated glomerular filtration rate (GFR) zdjjziolkgsyw0297-62-31 05:42:00* Test Item Value Reference Range Interpretation Comments Estimat Glomerular Filtration Rate (test code = 526612182) > 60 >60 Ranges were taken from the National Kidney Disease Education Program and the [facility] Foundation literature.Reference ranges:60 or greater: Ubqroy78-77 ( for 3 consecutive months): Chronic kidney disease 15 or less: Kidney failureStephens Memorial HospitalGlucose brbriqrtiqj7810-26-43 05:42:00* Test Item Value Reference Range Interpretation Comments Glucose Level (test code = IUG6522) 266 74-118 [facility]er[facility] plasma calcium measurement (mass/volume)2019-09-23 05:42:00* Test Item Value Reference Range Interpretation Comments Calcium Level (test code = 69799-2) 8.3 8.4-10.2 [facility]er[facility] or plasma total bilirubin measurement (mass/volume)2019-09-23 05:42:00* Test Item Value Reference Range Interpretation Comments Total Bilirubin (test code = 1975-2) 0.4 0.2-1.2 [facility] HospitalFluoroscopic procedure less than one hour yqbkotrg3957-16-49 05:42:00* Test Item Value Reference Range Interpretation Comments Aspartate Amino Transf (AST/SGOT) (test code = Aspartate Amino Transf (AST/SGOT)) 14 5-34 [facility]erum or plasma alanine aminotransferase measurement (enzymatic activity/volume)2019-09-23 05:42:00* Test Item Value Reference Range Interpretation Comments Alanine Aminotransferase (ALT/SGPT) (test code = 1742-6) 14 0-55 [facility]erum or plasma protein measurement (mass/volume)2019-09-23 05:42:00* Test Item Value Reference Range Interpretation Comments Total Protein (test code = 2885-2) 6.2 6.5-8.1 [facility]er[facility] plasma albumin measurement (mass/volume)2019-09-23 05:42:00* Test Item Value Reference Range Interpretation Comments Albumin (test code = 1751-7) 3.4 3.5-5.0 [facility] HospitalPlasma globulin measurement (mass/volume) 2019-09-23 05:42:00* Test Item Value Reference Range Interpretation Comments Globulin (test code = 00479-0) 2.8 2.3-3.5 [facility]er[facility] or plasma albumin/globulin mass ydenl7210-48-83 05:42:00* Test Item Value Reference Range Interpretation Comments Albumin/Globulin Ratio (test code = 1759-0) 1.2 0.8-2.0 [facility]erum or plasma alkaline phosphatase measurement (enzymatic activity/volume)2019-09-23 05:42:00* Test Item Value Reference Range Interpretation Comments Alkaline Phosphatase (test code = 6768-6) 108 40-150 [facility] HospitalABDOMEN-1VIEW (KUB)2019-09-22 13:59:00 [facility] [address] [place] [address] Patient Name: BREE LINDSAY MR #: [id number] : 1975 Age/Sex: 43/M Req #: [id number] Adm Physician: RUSLAN CARTER MD Ordered by: RUSLAN CARTER MD Re port #: [id number] Location: [facility] Room/ Bed: [facility] Procedure: [id number] DX/ABDOMEN-1V IEW (KUB) Exam Date: 09/22/19 Exam [...] Interpretation Comments Bedside Glucose (test code = 98939-5) 179 70-120 Meter ID: [id number] [facility] CenterCap[facility] glucose measurement by glucometer (mass/volume)2019-08-25 11:40:00* Test Item Value Reference Range Interpretation Comments Bedside Glucose (test code = 94116-5) 179 70-120 Meter ID: [id number] [facility] CenterFluoroscopic procedure less than one hour bjubmdaf4675-48-27 13:20:00* Test Item Value Reference Range Interpretation [...] complexity tests.Testing performed by [facility] [address] [place] [address] [phone] Director: Yuri Perry M.D.CLIA # [id number] [facility] Fluoroscopic procedure less than one hour eehlhazg7932-93-53 13:20:00* Test Item Value Reference Range Interpretation [...] complexity tests.Testing performed by [facility] [address] [place], [place] [phone] Director: Yuri Perry M.D.CLIA # [id number] [facility] Fluoroscopic procedure less than one hour dfmjagkm8120-58-82 13:20:00* Test Item Value Reference Range Interpretation [...] complexity tests.Testing performed by [facility] [address] [place] [address] [phone] Director: Yuri Perry M.D.CLIA # [id number] [facility] Fluoroscopic procedure less than one hour ktprfkcx5173-64-49 13:20:00* Test Item Value Reference Range Interpretation [...] complexity tests.Testing performed by [facility] [address] [place], [place] [phone] Director: Yuri Perry M.D.CLTIFFANY # [id number] [facility] Fluoroscopic procedure less than one hour iihjlhvz3561-09-03 13:20:00* Test Item Value Reference Range Interpretation [...] Pathology Laboratories are certified under the [facility] Improvement Amendments of 1988 (CLIA), 42 U.S.C. section 263a , to perform high complexity tests.Testing performed by [facility] [address] [phone] Director: Yuri Perry M.D.CLIA # [id number] [facility] Hospital Capillary blood glucose measurement by glucometer (mass/volume)2019-07-24 11:15:00* Test Item Value Reference Range Interpretation Comments Bedside Glucose (test code = 46546-6) 145 70-120 Meter ID: [id number] Community HospitalBlood leukocytes automated count (number/volume)2019-07-24 06:10:00* Test Item Value Reference Range Interpretation Comments White Blood Count (test code = 6690-2) 6.43 4.8-10.8 [facility] HospitalBlood erythrocytes automated count (number/volume)2019-07-24 06:10:00* Test Item Value Reference Range Interpretation Comments Red Blood Count (test code = 789-8) 3.29 4.3-5.7 [facility] HospitalBlood hemoglobin measurement (moles/volume)2019-07-24 06:10:00* Test Item Value Reference Range Interpretation Comments Hemoglobin (test code = 47371-2) 9.4 14.0-18.0 [facility] HospitalAutomated blood hematocrit (volume fraction)2019-07-24 06:10:00* Test Item Value Reference Range Interpretation Comments Hematocrit (test code = 4544-3) 29.7 38.2-49.6 [facility] HospitalAutomated erythrocyte mean corpuscular imulcm3139-73-74 06:10:00* Test Item Value Reference Range Interpretation Comments Mean Corpuscular Volume (test code = 787-2) 90.3 81-99 [facility] HospitalAutomated erythrocyte mean corpuscular hemoglobin (mass per erythrocyte)2019-07-24 06:10:00* Test Item Value Reference Range Interpretation Comments Mean Corpuscular Hemoglobin (test code = 785-6) 28.6 28-32 [facility] HospitalAutomated erythrocyte mean corpuscular hemoglobin concentration measurement (mass/volume)2019-07-24 06:10:00* Test Item Value Reference Range Interpretation Comments Mean Corpuscular Hemoglobin Concent (test code = 786-4) 31.6 31-35 [facility] HospitalRDW LhyDf-Bli6014-30-26 06:10:00* Test Item Value Reference Range Interpretation Comments Red Cell Distribution Width (test code = 32789-9) 14.5 11.7 -14.4 [facility] HospitalAutomated blood platelet count (count/volume)2019-07-24 06:10:00* Test Item Value Reference Range Interpretation Comments Platelet Count (test code = 777-3) 132 140-360 [facility] HospitalAutomated blood segmented neutrophil count as percentage of total qxeewhakgs2186-49-66 06:10:00* Test Item Value Reference Range Interpretation Comments Neutrophils (%) (Auto) (test code = 19149-5) 61.3 38.7-80.0 [facility] HospitalAutomated blood lymphocyte count as percentage ot total egsotserre9767-12-32 06:10:00* Test Item Value Reference Range Interpretation Comments Lymphocytes (%) (Auto) (test code = 736-9) 24.9 18.0-39.1 [facility] HospitalAutomated blood monocyte count as percentage of total dkyhkhpaac5324-73-83 06:10:00* Test Item Value Reference Range Interpretation Comments Monocytes (%) (Auto) (test code = 5905-5) 10.0 4.4-11.3 [facility] HospitalAutomated blood eosinophil count as percentage of total imptyulktf3393-54-95 06:10:00* Test Item Value Reference Range Interpretation Comments Eosinophils (%) (Auto) (test code = 713-8) 2.6 0.0-6.0 [facility] HospitalAutomated blood basophil count as percentage of total uaefpxsnny9579-56-42 06:10:00* Test Item Value Reference Range Interpretation Comments Basophils (%) (Auto) (test code = 706-2) 0.9 0.0-1.0 [facility] HospitalFluoroscopic procedure less than one hour zdpnhxyw2199-66-72 06:10:00* Test Item Value Reference Range Interpretation Comments IM GRANULOCYTES % (test code = IM GRANULOCYTES %) 0.3 0.0- 1.0 [facility] HospitalAutomated blood neutrophil count 2019-07-24 06:10:00* Test Item Value Reference Range Interpretation Comments Neutrophils # (Auto) (test code = 751-8) 3.9 2.1-6.9 [facility] HospitalBlood lymphocytes count (number/volume) 2019-07-24 06:10:00* Test Item Value Reference Range Interpretation Comments Lymphocytes # (Auto) (test code = 74458-6) 1.6 1.0-3.2 [facility] HospitalBlood monocytes automated count (number/volume)2019-07-24 06:10:00* Test Item Value Reference Range Interpretation Comments Monocytes # (Auto) (test code = 742-7) 0.6 0.2-0.8 [facility] HospitalAutomated blood eosinophil count 2019-07-24 06:10:00* Test Item Value Reference Range Interpretation Comments Eosinophils # (Auto) (test code = 711-2) 0.2 0.0-0.4 [facility] HospitalAutomated blood basophil count (count/volume)2019-07-24 06:10:00* Test Item Value Reference Range Interpretation Comments Basophils # (Auto) (test code = 704-7) 0.1 0.0-0.1 [facility] HospitalFluoroscopic procedure less than one hour grpfqnro0750-93-61 06:10:00* Test Item Value Reference Range Interpretation Comments Absolute Immature Granulocyte (auto (zeenat t code = Absolute Immature Granulocyte (auto) 0.02 0-0.1 [facility] (moles/volume)2019-07-24 06:10:00* Test Item Value Reference Range Interpretation Comments Sodium Level (test code = 2951-2) 136 136-145 [facility]er[facility] potassium measurement (moles/volume)2019-07-24 06:10:00* Test Item Value Reference Range Interpretation Comments Potassium Level (test code = 2823-3) 3.7 3.5-5.1 [facility]er[facility] chloride measurement (moles/volume)2019-07-24 06:10:00* Test Item Value Reference Range Interpretation Comments Chloride Level (test code = 2075-0) 106 98-107 [facility]er[facility] plasma carbon dioxide, total measurement (moles/volume)2019-07-24 06:10:00* Test Item Value Reference Range Interpretation Comments Carbon Dioxide Level (test code = 2028-9) 23 22-29 [facility]erum [facility] plasma anion npe8017-86-08 06:10:00* Test Item Value Reference Range Interpretation Comments Anion Gap (test code = 21617-4) 10.7 8-16 [facility] urea nitrogen measurement (mass/volume)2019-07-24 06:10:00* Test Item Value Reference Range Interpretation Comments Blood Urea Nitrogen (test code = 3094-0) 13 7-26 [facility]er[facility] creatinine measurement (mass/volume)2019-07-24 06:10:00* Test Item Value Reference Range Interpretation Comments Creatinine (test code = 2160-0) 1.24 0.72-1.25 [facility]er[facility] urea nitrogen/creatinine mass ejdgr8656-71-18 06:10:00* Test Item Value Reference Range Interpretation Comments BUN/Creatinine Ratio (test code = 3097-3) 10 6-25 [facility] HospitalEstimated glomerular filtration rate (GFR) sicwnnoglhnlo4335-73-98 06:10:00* Test Item Value Reference Range Interpretation Comments Estimat Glomerular Filtration Rate (test code = 464705954) > 60 >60 Ranges were taken from the National Kidney Disease Education Program and the [facility] literature.Reference ranges:60 or greater: Huryhp12-07 ( for 3 consecutive months): Chronic kidney disease 15 or less: Kidney failureStephens Memorial HospitalGlucose lthshzcbcin3065-30-86 06:10:00* Test Item Value Reference Range Interpretation Comments Glucose Level (test code = GVT2287) 148 74-118 [facility] calcium measurement (mass/volume)2019-07-24 06:10:00* Test Item Value Reference Range Interpretation Comments Calcium Level (test code = 48581-3) 8.6 8.4-10.2 [facility]er[facility] plasma total bilirubin measurement (mass/volume)2019-07-24 06:10:00* Test Item Value Reference Range Interpretation Comments Total Bilirubin (test code = 1975-2) 0.5 0.2-1.2 [facility] HospitalFluoroscopic procedure less than one hour agsfjgmf1259-77-04 06:10:00* Test Item Value Reference Range Interpretation Comments Aspartate Amino Transf (AST/SGOT) (test code = Aspartate Amino Transf (AST/SGOT)) 14 5-34 [facility]er[facility] plasma alanine aminotransferase measurement (enzymatic activity/volume)2019-07-24 06:10:00* Test Item Value Reference Range Interpretation Comments Alanine Aminotransferase (ALT/SGPT) (test code = 1742-6) 15 0-55 [facility]er[facility] plasma protein measurement (mass/volume)2019-07-24 06:10:00* Test Item Value Reference Range Interpretation Comments Total Protein (test code = 2885-2) 6.2 6.5-8.1 [facility]er[facility] albumin measurement (mass/volume)2019-07-24 06:10:00* Test Item Value Reference Range Interpretation Comments Albumin (test code = 1751-7) 3.1 3.5-5.0 [facility] HospitalPlasma globulin measurement (mass/volume) 2019-07-24 06:10:00* Test Item Value Reference Range Interpretation Comments Globulin (test code = 79122-6) 3.1 2.3-3.5 [facility]er[facility] plasma albumin/globulin mass lovah9118-92-32 06:10:00* Test Item Value Reference Range Interpretation Comments Albumin/Globulin Ratio (test code = 1759-0) 1.0 0.8-2.0 [facility]er[facility] alkaline phosphatase measurement (enzymatic activity/volume)2019-07-24 06:10:00* Test Item Value Reference Range Interpretation Comments Alkaline Phosphatase (test code = 6768-6) 106 40-150 [facility]er[facility] amylase measurement (enzymatic activity/volume)2019-07-24 06:10:00* Test Item Value Reference Range Interpretation Comments Amylase Level (test code = 1798-8) 36 25-125 [facility] lipase measurement (enzymatic activity/volume)2019-07-24 06:10:00* Test Item Value Reference Range Interpretation Comments Lipase (test code = 3040-3) < 4 8-78 [facility] HospitalBlood leukocytes automated count (number/volume)2019-07-24 06:10:00* Test Item Value Reference Range Interpretation Comments White Blood Count (test code = 6690-2) 6.43 4.8-10.8 [facility] HospitalBlood erythrocytes automated count (number/volume)2019-07-24 06:10:00* Test Item Value Reference Range Interpretation Comments Red Blood Count (test code = 789-8) 3.29 4.3-5.7 [facility] HospitalBlood hemoglobin measurement (moles/volume)2019-07-24 06:10:00* Test Item Value Reference Range Interpretation Comments Hemoglobin (test code = 31211-0) 9.4 14.0-18.0 [facility] HospitalAutomated blood hematocrit (volume fraction)2019-07-24 06:10:00* Test Item Value Reference Range Interpretation Comments Hematocrit (test code = 4544-3) 29.7 38.2-49.6 [facility] HospitalAutomated erythrocyte mean corpuscular dyvyra2264-59-61 06:10:00* Test Item Value Reference Range Interpretation Comments Mean Corpuscular Volume (test code = 787-2) 90.3 81-99 [facility] HospitalAutomated erythrocyte mean corpuscular hemoglobin (mass per erythrocyte)2019-07-24 06:10:00* Test Item Value Reference Range Interpretation Comments Mean Corpuscular Hemoglobin (test code = 785-6) 28.6 28-32 [facility] HospitalAutomated erythrocyte mean corpuscular hemoglobin concentration measurement (mass/volume)2019-07-24 06:10:00* Test Item Value Reference Range Interpretation Comments Mean Corpuscular Hemoglobin Concent (test code = 786-4) 31.6 31-35 [facility] HospitalRDW MxvMb-Pmr5802-91-26 06:10:00* Test Item Value Reference Range Interpretation Comments Red Cell Distribution Width (test code = 42077-0) 14.5 11.7 -14.4 [facility] HospitalAutomated blood platelet count (count/volume)2019-07-24 06:10:00* Test Item Value Reference Range Interpretation Comments Platelet Count (test code = 777-3) 132 140-360 [facility] HospitalAutomated blood segmented neutrophil count as percentage of total jcbdmrusuj0971-88-80 06:10:00* Test Item Value Reference Range Interpretation Comments Neutrophils (%) (Auto) (test code = 40078-2) 61.3 38.7-80.0 [facility] HospitalAutomated blood lymphocyte count as percentage ot total vfiitlhykv9893-39-67 06:10:00* Test Item Value Reference Range Interpretation Comments Lymphocytes (%) (Auto) (test code = 736-9) 24.9 18.0-39.1 [facility] HospitalAutomated blood monocyte count as percentage of total qrrjtlydxh7414-28-21 06:10:00* Test Item Value Reference Range Interpretation Comments Monocytes (%) (Auto) (test code = 5905-5) 10.0 4.4-11.3 [facility] HospitalAutomated blood eosinophil count as percentage of total gdunasqzer4774-98-54 06:10:00* Test Item Value Reference Range Interpretation Comments Eosinophils (%) (Auto) (test code = 713-8) 2.6 0.0-6.0 [facility] HospitalAutomated blood basophil count as percentage of total kobdbhlgtu9474-75-84 06:10:00* Test Item Value Reference Range Interpretation Comments Basophils (%) (Auto) (test code = 706-2) 0.9 0.0-1.0 [facility] HospitalFluoroscopic procedure less than one hour wxclvjdq4487-64-00 06:10:00* Test Item Value Reference Range Interpretation Comments IM GRANULOCYTES % (test code = IM GRANULOCYTES %) 0.3 0.0- 1.0 [facility] HospitalAutomated blood neutrophil count 2019-07-24 06:10:00* Test Item Value Reference Range Interpretation Comments Neutrophils # (Auto) (test code = 751-8) 3.9 2.1-6.9 [facility] HospitalBlood lymphocytes count (number/volume) 2019-07-24 06:10:00* Test Item Value Reference Range Interpretation Comments Lymphocytes # (Auto) (test code = 02763-9) 1.6 1.0-3.2 [facility]Blty[facility] monocytes automated count (number/volume)2019-07-24 06:10:00* Test Item Value Reference Range Interpretation Comments Monocytes # (Auto) (test code = 742-7) 0.6 0.2-0.8 [facility] HospitalAutomated blood eosinophil count 2019-07-24 06:10:00* Test Item Value Reference Range Interpretation Comments Eosinophils # (Auto) (test code = 711-2) 0.2 0.0-0.4 [facility] HospitalAutomated blood basophil count (count/volume)2019-07-24 06:10:00* Test Item Value Reference Range Interpretation Comments Basophils # (Auto) (test code = 704-7) 0.1 0.0-0.1 [facility] HospitalFluoroscopic procedure less than one hour glgcnruh2282-48-52 06:10:00* Test Item Value Reference Range Interpretation Comments Absolute Immature Granulocyte (auto (zeenat t code = Absolute Immature Granulocyte (auto) 0.02 0-0.1 [facility]er[facility] sodium measurement (moles/volume)2019-07-24 06:10:00* Test Item Value Reference Range Interpretation Comments Sodium Level (test code = 2951-2) 136 136-145 [facility]er[facility] potassium measurement (moles/volume)2019-07-24 06:10:00* Test Item Value Reference Range Interpretation Comments Potassium Level (test code = 2823-3) 3.7 3.5-5.1 [facility]er[facility] plasma chloride measurement (moles/volume)2019-07-24 06:10:00* Test Item Value Reference Range Interpretation Comments Chloride Level (test code = 2075-0) 106 98-107 [facility]er[facility] or plasma carbon dioxide, total measurement (moles/volume)2019-07-24 06:10:00* Test Item Value Reference Range Interpretation Comments Carbon Dioxide Level (test code = 2028-9) 23 22-29 [facility]er[facility] or plasma anion bnt1734-47-43 06:10:00* Test Item Value Reference Range Interpretation Comments Anion Gap (test code = 75665-3) 10.7 8-16 [facility] urea nitrogen measurement (mass/volume)2019-07-24 06:10:00* Test Item Value Reference Range Interpretation Comments Blood Urea Nitrogen (test code = 3094-0) 13 7-26 [facility]er[facility] creatinine measurement (mass/volume)2019-07-24 06:10:00* Test Item Value Reference Range Interpretation Comments Creatinine (test code = 2160-0) 1.24 0.72-1.25 [facility]er[facility] plasma urea nitrogen/creatinine mass zizbl2373-74-44 06:10:00* Test Item Value Reference Range Interpretation Comments BUN/Creatinine Ratio (test code = 3097-3) 10 6-25 [facility] HospitalEstimated glomerular filtration rate (GFR) gozpmtyfmmyws0593-83-56 06:10:00* Test Item Value Reference Range Interpretation Comments Estimat Glomerular Filtration Rate (test code = 806537254) > 60 >60 Ranges were taken from the National Kidney Disease Education Program and the [facility] Foundation literature.Reference ranges:60 or greater: Enqvgt35-23 ( for 3 consecutive months): Chronic kidney disease 15 or less: Kidney failureStephens Memorial HospitalGlucose vcjnelywkym7405-77-88 06:10:00* Test Item Value Reference Range Interpretation Comments Glucose Level (test code = WMS2561) 148 74-118 [facility] calcium measurement (mass/volume)2019-07-24 06:10:00* Test Item Value Reference Range Interpretation Comments Calcium Level (test code = 97355-1) 8.6 8.4-10.2 [facility]er[facility] plasma total bilirubin measurement (mass/volume)2019-07-24 06:10:00* Test Item Value Reference Range Interpretation Comments Total Bilirubin (test code = 1975-2) 0.5 0.2-1.2 [facility] HospitalFluoroscopic procedure less than one hour ffwzlmmr6967-34-21 06:10:00* Test Item Value Reference Range Interpretation Comments Aspartate Amino Transf (AST/SGOT) (test code = Aspartate Amino Transf (AST/SGOT)) 14 5-34 [facility]er[facility] or plasma alanine aminotransferase measurement (enzymatic activity/volume)2019-07-24 06:10:00* Test Item Value Reference Range Interpretation Comments Alanine Aminotransferase (ALT/SGPT) (test code = 1742-6) 15 0-55 [facility]er[facility] protein measurement (mass/volume)2019-07-24 06:10:00* Test Item Value Reference Range Interpretation Comments Total Protein (test code = 2885-2) 6.2 6.5-8.1 [facility] albumin measurement (mass/volume)2019-07-24 06:10:00* Test Item Value Reference Range Interpretation Comments Albumin (test code = 1751-7) 3.1 3.5-5.0 [facility] HospitalPlasma globulin measurement (mass/volume) 2019-07-24 06:10:00* Test Item Value Reference Range Interpretation Comments Globulin (test code = 76090-8) 3.1 2.3-3.5 [facility]er[facility] plasma albumin/globulin mass koscg1776-06-47 06:10:00* Test Item Value Reference Range Interpretation Comments Albumin/Globulin Ratio (test code = 1759-0) 1.0 0.8-2.0 [facility]er[facility] alkaline phosphatase measurement (enzymatic activity/volume)2019-07-24 06:10:00* Test Item Value Reference Range Interpretation Comments Alkaline Phosphatase (test code = 6768-6) 106 40-150 [facility] amylase measurement (enzymatic activity/volume)2019-07-24 06:10:00* Test Item Value Reference Range Interpretation Comments Amylase Level (test code = 1798-8) 36 25-125 [facility] lipase measurement (enzymatic activity/volume)2019-07-24 06:10:00* Test Item Value Reference Range Interpretation Comments Lipase (test code = 3040-3) < 4 8-78 [facility] HospitalBlood leukocytes automated count (number/volume)2019-07-24 06:10:00* Test Item Value Reference Range Interpretation Comments White Blood Count (test code = 6690-2) 6.43 4.8-10.8 [facility] HospitalBlood erythrocytes automated count (number/volume)2019-07-24 06:10:00* Test Item Value Reference Range Interpretation Comments Red Blood Count (test code = 789-8) 3.29 4.3-5.7 [facility] HospitalBlood hemoglobin measurement (moles/volume)2019-07-24 06:10:00* Test Item Value Reference Range Interpretation Comments Hemoglobin (test code = 73046-8) 9.4 14.0-18.0 [facility] HospitalAutomated blood hematocrit (volume fraction)2019-07-24 06:10:00* Test Item Value Reference Range Interpretation Comments Hematocrit (test code = 4544-3) 29.7 38.2-49.6 [facility] HospitalAutomated erythrocyte mean corpuscular gwmgni0561-53-83 06:10:00* Test Item Value Reference Range Interpretation Comments Mean Corpuscular Volume (test code = 787-2) 90.3 81-99 [facility] HospitalAutomated erythrocyte mean corpuscular hemoglobin (mass per erythrocyte)2019-07-24 06:10:00* Test Item Value Reference Range Interpretation Comments Mean Corpuscular Hemoglobin (test code = 785-6) 28.6 28-32 [facility] HospitalAutomated erythrocyte mean corpuscular hemoglobin concentration measurement (mass/volume)2019-07-24 06:10:00* Test Item Value Reference Range Interpretation Comments Mean Corpuscular Hemoglobin Concent (test code = 786-4) 31.6 31-35 [facility] HospitalRDW LhtXr-Xfq6329-10-26 06:10:00* Test Item Value Reference Range Interpretation Comments Red Cell Distribution Width (test code = 04837-2) 14.5 11.7 -14.4 [facility] HospitalAutomated blood platelet count (count/volume)2019-07-24 06:10:00* Test Item Value Reference Range Interpretation Comments Platelet Count (test code = 777-3) 132 140-360 [facility] HospitalAutomated blood segmented neutrophil count as percentage of total etbedccnnp5526-08-04 06:10:00* Test Item Value Reference Range Interpretation Comments Neutrophils (%) (Auto) (test code = 94777-6) 61.3 38.7-80.0 [facility] HospitalAutomated blood lymphocyte count as percentage ot total qmvqliwqph4607-69-61 06:10:00* Test Item Value Reference Range Interpretation Comments Lymphocytes (%) (Auto) (test code = 736-9) 24.9 18.0-39.1 [facility] HospitalAutomated blood monocyte count as percentage of total cfbknzbduy4301-62-87 06:10:00* Test Item Value Reference Range Interpretation Comments Monocytes (%) (Auto) (test code = 5905-5) 10.0 4.4-11.3 [facility] HospitalAutomated blood eosinophil count as percentage of total cyimjyqgtu9271-39-43 06:10:00* Test Item Value Reference Range Interpretation Comments Eosinophils (%) (Auto) (test code = 713-8) 2.6 0.0-6.0 [facility] HospitalAutomated blood basophil count as percentage of total tounylkbev2336-09-63 06:10:00* Test Item Value Reference Range Interpretation Comments Basophils (%) (Auto) (test code = 706-2) 0.9 0.0-1.0 [facility] HospitalFluoroscopic procedure less than one hour vcwllnra5909-34-89 06:10:00* Test Item Value Reference Range Interpretation Comments IM GRANULOCYTES % (test code = IM GRANULOCYTES %) 0.3 0.0- 1.0 [facility] HospitalAutomated blood neutrophil count 2019-07-24 06:10:00* Test Item Value Reference Range Interpretation Comments Neutrophils # (Auto) (test code = 751-8) 3.9 2.1-6.9 [facility] HospitalBlood lymphocytes count (number/volume) 2019-07-24 06:10:00* Test Item Value Reference Range Interpretation Comments Lymphocytes # (Auto) (test code = 08490-3) 1.6 1.0-3.2 [facility]Bl[facility] monocytes automated count (number/volume)2019-07-24 06:10:00* Test Item Value Reference Range Interpretation Comments Monocytes # (Auto) (test code = 742-7) 0.6 0.2-0.8 [facility] HospitalAutomated blood eosinophil count 2019-07-24 06:10:00* Test Item Value Reference Range Interpretation Comments Eosinophils # (Auto) (test code = 711-2) 0.2 0.0-0.4 [facility] HospitalAutomated blood basophil count (count/volume)2019-07-24 06:10:00* Test Item Value Reference Range Interpretation Comments Basophils # (Auto) (test code = 704-7) 0.1 0.0-0.1 [facility] HospitalFluoroscopic procedure less than one hour suatynza3993-18-36 06:10:00* Test Item Value Reference Range Interpretation Comments Absolute Immature Granulocyte (auto (zeenat t code = Absolute Immature Granulocyte (auto) 0.02 0-0.1 [facility]er[facility] plasma sodium measurement (moles/volume)2019-07-24 06:10:00* Test Item Value Reference Range Interpretation Comments Sodium Level (test code = 2951-2) 136 136-145 [facility]erum or plasma potassium measurement (moles/volume)2019-07-24 06:10:00* Test Item Value Reference Range Interpretation Comments Potassium Level (test code = 2823-3) 3.7 3.5-5.1 [facility]er[facility] or plasma chloride measurement (moles/volume)2019-07-24 06:10:00* Test Item Value Reference Range Interpretation Comments Chloride Level (test code = 2075-0) 106 98-107 [facility]erum or plasma carbon dioxide, total measurement (moles/volume)2019-07-24 06:10:00* Test Item Value Reference Range Interpretation Comments Carbon Dioxide Level (test code = 2028-9) 23 22-29 [facility]erum or plasma anion xiq2018-56-02 06:10:00* Test Item Value Reference Range Interpretation Comments Anion Gap (test code = 34423-7) 10.7 8-16 [facility]er[facility] urea nitrogen measurement (mass/volume)2019-07-24 06:10:00* Test Item Value Reference Range Interpretation Comments Blood Urea Nitrogen (test code = 3094-0) 13 7-26 [facility]er[facility] plasma creatinine measurement (mass/volume)2019-07-24 06:10:00* Test Item Value Reference Range Interpretation Comments Creatinine (test code = 2160-0) 1.24 0.72-1.25 [facility]er[facility] plasma urea nitrogen/creatinine mass dmkqn7086-03-13 06:10:00* Test Item Value Reference Range Interpretation Comments BUN/Creatinine Ratio (test code = 3097-3) 10 6-25 [facility] HospitalEstimated glomerular filtration rate (GFR) xmssjhljewpud0819-54-86 06:10:00* Test Item Value Reference Range Interpretation Comments Estimat Glomerular Filtration Rate (test code = 819365914) > 60 >60 Ranges were taken from the National Kidney Disease Education Program and the [facility] literature.Reference ranges:60 or greater: Thtpnv74-92 ( for 3 consecutive months): Chronic kidney disease 15 or less: Kidney failureStephens Memorial HospitalGlucose qftlzniweop9107-80-80 06:10:00* Test Item Value Reference Range Interpretation Comments Glucose Level (test code = BLH2248) 148 74-118 [facility]er[facility] or plasma calcium measurement (mass/volume)2019-07-24 06:10:00* Test Item Value Reference Range Interpretation Comments Calcium Level (test code = 69755-6) 8.6 8.4-10.2 [facility] Hospitalerum or plasma total bilirubin measurement (mass/volume)2019-07-24 06:10:00* Test Item Value Reference Range Interpretation Comments Total Bilirubin (test code = 1975-2) 0.5 0.2-1.2 [facility] HospitalFluoroscopic procedure less than one hour hxwbvide4095-10-14 06:10:00* Test Item Value Reference Range Interpretation Comments Aspartate Amino Transf (AST/SGOT) (test code = Aspartate Amino Transf (AST/SGOT)) 14 5-34 [facility] Hospitalerum or plasma alanine aminotransferase measurement (enzymatic activity/volume)2019-07-24 06:10:00* Test Item Value Reference Range Interpretation Comments Alanine Aminotransferase (ALT/SGPT) (test code = 1742-6) 15 0-55 [facility] Hospitalerum or plasma protein measurement (mass/volume)2019-07-24 06:10:00* Test Item Value Reference Range Interpretation Comments Total Protein (test code = 2885-2) 6.2 6.5-8.1 [facility]er[facility] or plasma albumin measurement (mass/volume)2019-07-24 06:10:00* Test Item Value Reference Range Interpretation Comments Albumin (test code = 1751-7) 3.1 3.5-5.0 [facility] HospitalPlasma globulin measurement (mass/volume) 2019-07-24 06:10:00* Test Item Value Reference Range Interpretation Comments Globulin (test code = 31744-7) 3.1 2.3-3.5 [facility] Hospitalerum or plasma albumin/globulin mass eiram2632-02-31 06:10:00* Test Item Value Reference Range Interpretation Comments Albumin/Globulin Ratio (test code = 1759-0) 1.0 0.8-2.0 [facility] Hospitaler[facility] or plasma alkaline phosphatase measurement (enzymatic activity/volume)2019-07-24 06:10:00* Test Item Value Reference Range Interpretation Comments Alkaline Phosphatase (test code = 6768-6) 106 40-150 [facility]erum or plasma amylase measurement (enzymatic activity/volume)2019-07-24 06:10:00* Test Item Value Reference Range Interpretation Comments Amylase Level (test code = 1798-8) 36 25-125 [facility]er[facility] or plasma lipase measurement (enzymatic activity/volume)2019-07-24 06:10:00* Test Item Value Reference Range Interpretation Comments Lipase (test code = 3040-3) < 4 8-78 [facility]er[facility] plasma amylase measurement (enzymatic activity/volume)2019-07-24 06:10:00* Test Item Value Reference Range Interpretation Comments Amylase Level (test code = 1798-8) 36 25-125 [facility]er[facility] or plasma lipase measurement (enzymatic activity/volume)2019-07-24 06:10:00* Test Item Value Reference Range Interpretation Comments Lipase (test code = 3040-3) < 4 8-78 [facility]er[facility] or plasma amylase measurement (enzymatic activity/volume)2019-07-24 06:10:00* Test Item Value Reference Range Interpretation Comments Amylase Level (test code = 1798-8) 36 25-125 [facility]erum or plasma lipase measurement (enzymatic activity/volume)2019-07-24 06:10:00* Test Item Value Reference Range Interpretation Comments Lipase (test code = 3040-3) < 4 8-78 [facility] HospitalFluoroscopic procedure less than one hour gfxcfesh6595-67-92 12:20:00* Test Item Value Reference Range Interpretation Comments Hemoglobin A1c Percent (test code = Hemoglobin A1c Percent) 8.4 4.0-7.0 [facility] HospitalFluoroscopic procedure less than one hour buvqmdak5408-79-72 12:20:00* Test Item Value Reference Range Interpretation Comments Lactic Acid Level (test code = Lactic Acid Level) 0.8 0.5- 2.0 [facility] HospitalFluoroscopic procedure less than one hour bdyahvlb5837-81-39 12:20:00* Test Item Value Reference Range Interpretation Comments Hemoglobin A1c Percent (test code = Hemoglobin A1c Percent) 8.4 4.0-7.0 [facility] HospitalFluoroscopic procedure less than one hour tgzgqoxm3443-33-37 12:20:00* Test Item Value Reference Range Interpretation Comments Lactic Acid Level (test code = Lactic Acid Level) 0.8 0.5- 2.0 [facility] HospitalFluoroscopic procedure less than one hour cgqiakee8370-26-34 12:20:00* Test Item Value Reference Range Interpretation Comments Hemoglobin A1c Percent (test code = Hemoglobin A1c Percent) 8.4 4.0-7.0 [facility] HospitalFluoroscopic procedure less than one hour rkgddepp8264-45-97 12:20:00* Test Item Value Reference Range Interpretation Comments Lactic Acid Level (test code = Lactic Acid Level) 0.8 0.5- 2.0 [facility] HospitalFluoroscopic procedure less than one hour incgaszd5665-59-69 12:20:00* Test Item Value Reference Range Interpretation Comments Hemoglobin A1c Percent (test code = Hemoglobin A1c Percent) 8.4 4.0-7.0 [facility] HospitalFluoroscopic procedure less than one hour hrzvxdwr4086-68-82 12:20:00* Test Item Value Reference Range Interpretation Comments Lactic Acid Level (test code = Lactic Acid Level) 0.8 0.5- 2.0 [facility] HospitalFluoroscopic procedure less than one hour bzhdogsa6550-33-97 12:20:00* Test Item Value Reference Range Interpretation Comments Hemoglobin A1c Percent (test code = Hemoglobin A1c Percent) 8.4 4.0-7.0 [facility] HospitalFluoroscopic procedure less than one hour gwtohfog8166-54-59 12:20:00* Test Item Value Reference Range Interpretation Comments Lactic Acid Level (test code = Lactic Acid Level) 0.8 0.5- 2.0 [facility] HospitalFluoroscopic procedure less than one hour legvkdso0072-05-48 12:20:00* Test Item Value Reference Range Interpretation Comments Hemoglobin A1c Percent (test code = Hemoglobin A1c Percent) 8.4 4.0-7.0 [facility] HospitalFluoroscopic procedure less than one hour ogkzerxm2740-92-57 12:20:00* Test Item Value Reference Range Interpretation Comments Hemoglobin A1c Percent (test code = Hemoglobin A1c Percent) 8.4 4.0-7.0 [facility] JJPYIIGX-RKQJ5265-04-25 06:46:00 [facility] [address] [address] Patient Name: BREE LINDSAY MR #: [id number] : 1975 Age/Sex: 43/M Req #: [id number] Adm Physician: Ordered by: NEIL PEREZ MD Report #: [id number] Location: [facility] Room/Bed: Procedure: [id number] HOPD/CT ABD/PEL WO CONTRAST-HOPD Exam Date: 07/23/19 [...] COPY TO: NEIL PEREZ MD Bacterial blood fehpxje7287-16-44 06:44:00* Test Item Value Reference Range Interpretation Comments Blood Culture (test code = 600-7) STAPHYLOCOCCUS SP COAG NEG [facility] HospitalBacterial blood xpkbucz1616-01-89 06:44:00* Test Item Value Reference Range Interpretation Comments Blood Culture (test code = 600-7) STAPHYLOCOCCUS SP COAG NEG [facility] HospitalBacterial blood pxoldui9385-96-13 06:44:00* Test Item Value Reference Range Interpretation Comments Blood Culture (test code = 600-7) STAPHYLOCOCCUS SP COAG NEG [facility] HospitalBacterial blood culoftu3026-14-39 06:44:00* Test Item Value Reference Range Interpretation Comments Blood Culture (test code = 600-7) STAPHYLOCOCCUS SP COAG NEG [facility] HospitalBacteria blood qxaublb4172-48-58 06:44:00* Test Item Value Reference Range Interpretation Comments Blood Culture (test code = 600-7) STAPHYLOCOCCUS SP COAG NEG [facility] HospitalBacterial blood pnqwxcu2907-26-80 06:44:00* Test Item Value Reference Range Interpretation Comments Blood Culture (test code = 600-7) STAPHYLOCOCCUS SP COAG NEG [facility] HospitalBacteria blood cednzhz7050-59-28 06:44:00* Test Item Value Reference Range Interpretation Comments Blood Culture (test code = 600-7) STAPHYLOCOCCUS SP COAG NEG [facility] HospitalCXR 1 VE - OIRV1132-41-72 06:44:00 [facility] [address] [address] Patient Name: BREE LINDSAY MR #: [id number] : 1975 Age/Sex: 43/M Req #: [id number] Adm Physician: Ordered by: NEIL PEREZ MD Report #: [id number] Location: [facility] Room/Bed: Procedure: [id number] [facility]: Exam Time: REPORT STATUS: Signed EXAMINATION: CX R 1 W - [facility] INDICATION: DKA. COMPARISON: Chest radiograph 11/22. FINDINGS: [...] 07/23/19645 COPY TO: NEIL PEREZ MD Blood wspvoso5722-01-80 06:05:00* Test Item Value Reference Range Interpretation Comments Blood Culture (test code = 13106993) NO GROWTH AFTER 5 DAYS, [facility] lbmfzrc5176-44-13 06:05:00* Test Item Value Reference Range Interpretation Comments Blood Culture (test code = 11632465) NO GROWTH AFTER 5 DAYS, FINAL REPORT [facility] wdiowhc8722-92-52 06:05:00* Test Item Value Reference Range Interpretation Comments Blood Culture (test code = 22034787) NO GROWTH AFTER 5 DAYS, FINAL REPORT [facility] bqvnlrr0996-59-73 06:05:00* Test Item Value Reference Range Interpretation Comments Blood Culture (test code = 02458200) NO GROWTH AFTER 5 DAYS, FINAL REPORT [facility] dggqktu8157-70-52 06:05:00* Test Item Value Reference Range Interpretation Comments Blood Culture (test code = 20423585) NO GROWTH AFTER 5 DAYS, FINAL REPORT [facility] dicikdn8759-98-65 06:05:00* Test Item Value Reference Range Interpretation Comments Blood Culture (test code = 02688181) NO GROWTH AFTER 5 DAYS, FINAL REPORT [facility] HospitalBedside Pvhxtzt7477-27-43 08:12:00* Test Item Value Reference Range Interpretation Comments Bedside Glucose (test code = 53782-3) 120 70-120 Meter ID: [id number] Hospitalodium Level 2019-07-10 07:06:00* Test Item Value Reference Range Interpretation Comments Sodium Level (test code = 2951-2) 139 136-145 [facility] HospitalPotassium Euorm4954-88-17 07:06:00* Test Item Value Reference Range Interpretation Comments Potassium Level (test code = 2823-3) 3.3 3.5-5.1 L [facility] HospitalChloride Xvxmq3212-10-46 07:06:00* Test Item Value Reference Range Interpretation Comments Chloride Level (test code = 2075-0) 102 98-107 [facility] HospitalCarbon Dioxide Otien8255-27-98 07:06:00* Test Item Value Reference Range Interpretation Comments Carbon Dioxide Level (test code = 2028-9) 28 22-29 [facility] HospitalAnion Gsp8062-37-69 07:06:00* Test Item Value Reference Range Interpretation Comments Anion Gap (test code = 00783-9) 12.3 8-16 [facility] HospitalBlood Urea Wvtfurro2040-42-73 07:06:00* Test Item Value Reference Range Interpretation Comments Blood Urea Nitrogen (test code = 3094-0) 31 7-26 H [facility] HospitalCreatinine2020-04-12 07:06:00* Test Item Value Reference Range Interpretation Comments Creatinine (test code = 2160-0) 1.55 0.72-1.25 H [facility] HospitalBUN/Creatinine Lztvo6383-52-31 07:06:00* Test Item Value Reference Range Interpretation Comments BUN/Creatinine Ratio (test code = 3097-3) 20 6-25 [facility] HospitalEstimat Glomerular Filtration Rate 2019-07-10 07:06:00* Test Item Value Reference Range Interpretation Comments Estimat Glomerular Filtration Rate (test code = 846984192) 60 >60 Ranges were taken from the National Kidney Disease Education Program and the [facility] literature.Reference ranges:60 or greater: Txeacz79-98 ( for 3 consecutive months): Chronic kidney disease 15 or less: Kidney failureStephens Memorial HospitalGlucose Redlr8399-43-13 07:06:00* Test Item Value Reference Range Interpretation Comments Glucose Level (test code = TTH5374) 92 74-118 [facility] HospitalCalcium Mctsp4338-00-25 07:06:00* Test Item Value Reference Range Interpretation Comments Calcium Level (test code = 88944-2) 8.1 8.4-10.2 L [facility] HospitalMagnesium Glitn3067-65-67 06:53:00* Test Item Value Reference Range Interpretation Comments Magnesium Level (test code = 43192-7) 1.8 1.3-2.1 [facility] HospitalWhite Blood Wiizs9339-77-36 06:24:00* Test Item Value Reference Range Interpretation Comments White Blood Count (test code = 6690-2) 8.09 4.8-10.8 [facility] HospitalRed Blood Qpwbm6111-19-11 06:24:00* Test Item Value Reference Range Interpretation Comments Red Blood Count (test code = 789-8) 3.66 4.3-5.7 L [facility] HospitalHemoglobin2020-04-12 06:24:00* Test Item Value Reference Range Interpretation Comments Hemoglobin (test code = 92739-1) 10.1 14.0-18.0 L [facility] HospitalHematocrit2020-04-12 06:24:00* Test Item Value Reference Range Interpretation Comments Hematocrit (test code = 4544-3) 32.4 38.2-49.6 L [facility] HospitalMean Corpuscular Sttwlj0582-80-05 06:24:00* Test Item Value Reference Range Interpretation Comments Mean Corpuscular Volume (test code = 787-2) 88.5 81-99 [facility] HospitalMean Corpuscular Sgtpwgipgp5058-02-90 06:24:00* Test Item Value Reference Range Interpretation Comments Mean Corpuscular Hemoglobin (test code = 785-6) 27.6 28-32 L [facility] HospitalMean Corpuscular Hemoglobin Concent 2019-07-10 06:24:00* Test Item Value Reference Range Interpretation Comments Mean Corpuscular Hemoglobin Concent (test code = 786-4) 31.2 31-35 [facility] HospitalRed Cell Distribution Ixsak8184-21-92 06:24:00* Test Item Value Reference Range Interpretation Comments Red Cell Distribution Width (test code = 42302-4) 13.8 11.7 -14.4 [facility] HospitalPlatelet Wipvz2192-44-82 06:24:00* Test Item Value Reference Range Interpretation Comments Platelet Count (test code = 777-3) 191 140-360 [facility] HospitalNeutrophils (%) (Auto)2019-07-10 06:24:00 * Test Item Value Reference Range Interpretation Comments Neutrophils (%) (Auto) (test code = 24437-3) 61.6 38.7-80.0 [facility] HospitalLymphocytes (%) (Auto)2019-07-10 06:24:00 * Test Item Value Reference Range Interpretation Comments Lymphocytes (%) (Auto) (test code = 736-9) 26.7 18.0-39.1 [facility] HospitalMonocytes (%) (Auto)2019-07-10 06:24:00* Test Item Value Reference Range Interpretation Comments Monocytes (%) (Auto) (test code = 5905-5) 10.3 4.4-11.3 [facility] HospitalEosinophils (%) (Auto)2019-07-10 06:24:00 * Test Item Value Reference Range Interpretation Comments Eosinophils (%) (Auto) (test code = 713-8) 0.6 0.0-6.0 [facility] HospitalBasophils (%) (Auto)2019-07-10 06:24:00* Test Item Value Reference Range Interpretation Comments Basophils (%) (Auto) (test code = 706-2) 0.6 0.0-1.0 [facility] HospitalIM GRANULOCYTES %2019-07-10 06:24:00* Test Item Value Reference Range Interpretation Comments IM GRANULOCYTES % (test code = IM GRANULOCYTES %) 0.2 0.0- 1.0 [facility] HospitalNeutrophils # (Auto)2019-07-10 06:24:00* Test Item Value Reference Range Interpretation Comments Neutrophils # (Auto) (test code = 751-8) 5.0 2.1-6.9 [facility] HospitalLymphocytes # (Auto)2019-07-10 06:24:00* Test Item Value Reference Range Interpretation Comments Lymphocytes # (Auto) (test code = 06621-5) 2.2 1.0-3.2 [facility] HospitalMonocytes # (Auto)2019-07-10 06:24:00* Test Item Value Reference Range Interpretation Comments Monocytes # (Auto) (test code = 742-7) 0.8 0.2-0.8 [facility] HospitalEosinophils # (Auto)2019-07-10 06:24:00* Test Item Value Reference Range Interpretation Comments Eosinophils # (Auto) (test code = 711-2) 0.1 0.0-0.4 [facility] HospitalBasophils # (Auto)2019-07-10 06:24:00* Test Item Value Reference Range Interpretation Comments Basophils # (Auto) (test code = 704-7) 0.1 0.0-0.1 [facility] HospitalAbsolute Immature Granulocyte (auto 2019-07-10 06:24:00* Test Item Value Reference Range Interpretation Comments Absolute Immature Granulocyte (auto (zeenat t code = Absolute Immature Granulocyte (auto) 0.02 0-0.1 [facility] Hospitalerum or plasma magnesium measurement (mass/volume)2019-07-10 05:32:00* Test Item Value Reference Range Interpretation Comments Magnesium Level (test code = 99685-3) 1.8 1.3-2.1 [facility] Hospitalerum or plasma magnesium measurement (mass/volume)2019-07-10 05:32:00* Test Item Value Reference Range Interpretation Comments Magnesium Level (test code = 42925-4) 1.8 1.3-2.1 [facility] Hospitalerum or plasma magnesium measurement (mass/volume)2019-07-10 05:32:00* Test Item Value Reference Range Interpretation Comments Magnesium Level (test code = 80753-6) 1.8 1.3-2.1 [facility] Hospitalerum or plasma magnesium measurement (mass/volume)2019-07-10 05:32:00* Test Item Value Reference Range Interpretation Comments Magnesium Level (test code = 44795-7) 1.8 1.3-2.1 [facility] Hospitalerum or plasma magnesium measurement (mass/volume)2019-07-10 05:32:00* Test Item Value Reference Range Interpretation Comments Magnesium Level (test code = 30282-4) 1.8 1.3-2.1 [facility] Hospitalerum or plasma magnesium measurement (mass/volume)2019-07-10 05:32:00* Test Item Value Reference Range Interpretation Comments Magnesium Level (test code = 70531-7) 1.8 1.3-2.1 [facility] Hospitalerum or plasma magnesium measurement (mass/volume)2019-07-10 05:32:00* Test Item Value Reference Range Interpretation Comments Magnesium Level (test code = 05958-0) 1.8 1.3-2.1 [facility] HospitalGLUBED2020-02-10 08:55:00* Test Item Value Reference Range Interpretation Comments GLUBED (test code = GLUBED) 122 mg/dL 74-106 H Performed by certified award machine operator at [facility] DKEBIB2285-10-39 08:43:00* Test Item Value Reference Range Interpretation Comments GLUBED (test code = GLUBED) 140 mg/dL 74-106 H Performed by certified award machine operator at [facility] - XR SHOULDER 1 V EO5973-42-41 13:41:00 FAX: Jg Astudillo MD [phone] [place]: St: REG FAX: Riley Zavala DO [phone] Name: BREE LINDSAY [facility] : 1975 Age/S: 43/M [address] [place] [address] Blvd Unit #: [id number] Loc: [place] [address] Phys: Jg Astudillo MD Acct: [id number] Dis Date: Status: REG CLI PHONE #: [phone] Exam Date: 03/02/2019 1333 FAX #: [phone] Reason: PICC PLACEMENT EXAMS: CPT CODE: [id number] XR SHOULDER 1 [place] [address] 1 VIEW LEFT SHOULDER HISTORY: PICC line pl acement.. Left upper extremity PICC line present. Catheter tip pr ojects over the level of the inferior 3rd of the SVC. END IMPRESSION SL: [id number] at 1341 Reported and sig lizette by: Yusuf Burgos M.D. CC: Jg Astudillo MD; Zak Beckman DO Technologist: SHANTE Field) Trnscrd Date/Time/By: 03/02/2019 (7586) : By: Jaclyn Orig Print D/T: S: 03/02/2019 (3096) PAGE 1 Signed Report [id number] 08:06:00* Test Item Value Reference Range Interpretation Comments GLUBED (test code = GLUBED) 224 mg/dL 74-106 H Performed by certified award machine operator at [facility] VJQJUZ7998-39-93 22:57:00* Test Item Value Reference Range Interpretation Comments GLUBED (test code = GLUBED) 62 mg/dL 74-106 L Performed by certified award machine operator at [facility] ZAIHLR0168-57-45 18:14:00* Test Item Value Reference Range Interpretation Comments GLUBED (test code = GLUBED) 158 mg/dL 74-106 H Performed by certified award machine operator at [facility] AUYNZA3476-52-79 11:43:00* Test Item Value Reference Range Interpretation Comments GLUBED (test code = GLUBED) 123 mg/dL 74-106 H Performed by certified award machine operator at [facility] BASIC METABOLIC VAPTZ9176-78-31 11:04:00* Test Item Value Reference Range Interpretation [...] CA) 8.5 mg/dL 8.5-10.1 N BASIC METABOLIC ZKBRY1812-88-68 10:55:00* Test Item Value Reference Range Interpretation [...] code = CA) mg/dL 8.5-10.1 CBC W/AUTO BUYJ1825-09-71 10:13:00* Test Item Value Reference Range Interpretation [...] code = NRBC#) 0.00 K/mm3 0.0-0.1 N KCNSQS2821-99-06 08:19:00* Test Item Value Reference Range Interpretation Comments GLUBED (test code = GLUBED) 81 mg/dL 74-106 N Performed by certified award machine operator at [facility] MCXJNQ1962-63-71 22:30:00* Test Item Value Reference Range Interpretation Comments GLUBED (test code = GLUBED) 243 mg/dL 74-106 H Performed by certified award machine operator at [facility] FKKHZF7106-59-53 17:17:00* Test Item Value Reference Range Interpretation Comments GLUBED (test code = GLUBED) 91 mg/dL 74-106 N Performed by certified award machine operator at [facility] BLOOD UREA WVMCXUKG5408-33-58 13:49:00* Test Item Value Reference Range Interpretation Comments BLOOD UREA NITROGEN (test code = BUN) 8 mg/dL 7-18 N 2 PHELBS GONE UP AND TRIED TO DRAW BLOOD PT SAID COME BACKINFORMED PAIGE Parker81Coleen [facility] 02/19/19 1037 KPCUQORPPK6419-09-12 13:49:00* Test Item Value Reference Range Interpretation Comments CREATININE (test code = CREAT) 0.90 mg/dL 0.7-1.3 N 2 PHELBS GONE UP AND TRIED TO DRAW BLOOD PT SAID COME BACKINFORMED PAIGE LIU E481Coleen [facility] 02/19/19 1037 CBC W/AUTO TDNH8806-61-04 13:02:00* Test Item Value Reference Range Interpretation [...] TO COME BACK LATER NOTIFIED PAIGE LUCERO.KP211/23/ 4512PQVQPH0382-14-40 11:50:00* Test Item Value Reference Range Interpretation Comments GLUBED (test code = GLUBED) 147 mg/dL 74-106 H Performed by certified award machine operator at [facility] HDTIED0169-38-52 10:37:00* Test Item Value Reference Range Interpretation Comments GLUBED (test code = GLUBED) 97 mg/dL 74-106 N Performed by certified award machine operator at [facility] VRQRVQ6565-91-73 21:43:00* Test Item Value Reference Range Interpretation Comments GLUBED (test code = GLUBED) 162 mg/dL 74-106 H Performed by certified award machine operator at [facility] PMIKLL8954-87-48 16:06:00* Test Item Value Reference Range Interpretation Comments GLUBED (test code = GLUBED) 98 mg/dL 74-106 N Performed by certified award machine operator at [facility] - XR CHEST 1 [id number] 14:36:00 FAX: Olegario Diaz MD [phone] [place]: St: ADM FAX: Iris Liao [phone] FAX: Raphael ShelleyRiley [phone] Name: BREE LINDSAY [facility] : 1975 Age/S: 43/M [address] Unit #: [id number] Loc: V.[address] [place] [address] Phys: Iris Liao NP Acct: [id number] Dis Date: Status: ADM IN ONE #: [phone] Exam Date: 02/18/2019 1339 FAX #: [phone] Reason: PICC TIP CONFIRMATION EXAMS: CPT CODE: [id number] XR CHEST 1 V 73346 REASON FOR EXAM: PICC TIP CONFIRMATION Exam [...] new finding from the prior exam. Location: [facility] Electronically Signed by Mulugeta Espinoza MD on at 1436 Reported and signed by: Mulugeta Espinoza MD CC: Olegario Diaz MD; Iris Liao RN CHILD; Riley Beckman DO Technologist: Ngozi LYON(R); Lucie Martinez(R) Trnscrd Date/Time/By: 01/29 (1436) : By: [email or web address] Orig Print D/T: S: 02/18/2019 (4196) PAGE 1 Signed Report [id number] 12:20:00* Test Item Value Reference Range Interpretation Comments GLUBED (test code = GLUBED) 141 mg/dL 74-106 H Performed by certified award machine operator at [facility] EPGQHF7440-96-37 07:15:00* Test Item Value Reference Range Interpretation Comments GLUBED (test code = GLUBED) 129 mg/dL 74-106 H Performed by certified award machine operator at [facility] DVBEZG6689-39-36 00:21:00* Test Item Value Reference Range Interpretation Comments GLUBED (test code = GLUBED) 166 mg/dL 74-106 H Performed by certified award machine operator at [facility] YJFAYS9933-62-19 20:50:00* Test Item Value Reference Range Interpretation Comments GLUBED (test code = GLUBED) 194 mg/dL 74-106 H Performed by certified award machine operator at [facility] BJJVRJDXZR6156-47-22 18:19:00* Test Item Value Reference Range Interpretation Comments VANCOMYCIN (test code = VANCO) 25.9 UG/ML 5.0-45.0 N [id number] 16:41:00* Test Item Value Reference Range Interpretation Comments GLUBED (test code = GLUBED) 223 mg/dL 74-106 H Performed by certified award machine operator at [facility] [id number] 13:22:00* Test Item Value Reference Range Interpretation Comments GLUBED (test code = GLUBED) 95 mg/dL 74-106 N Performed by certified award machine operator at [facility] [id number] 13:22:00* Test Item Value Reference Range Interpretation Comments GLUBED (test code = GLUBED) 61 mg/dL 74-106 L Performed by certified award machine operator at [facility] [id number] 13:22:00* Test Item Value Reference Range Interpretation Comments GLUBED (test code = GLUBED) 32 mg/dL 74-106 LL Test performed as P.O.C. by nursing staff.Performed by certified award machine operator at [facility] [id number] 13:22:00* Test Item Value Reference Range Interpretation Comments GLUBED (test code = GLUBED) 28 mg/dL 74-106 LL Test performed as P.O.C. by nursing staff.Performed by certified award machine operator [facility] Not[facility]~ [id number] 11:50:00* Test Item Value Reference Range Interpretation Comments GLUBED (test code = GLUBED) 104 mg/dL 74-106 N Performed by certified award machine operator at [facility] CBC W/MANUAL [id number] 09:27:00* Test Item Value Reference Range Interpretation [...] code = IMMAT) 0 % 0-0 N [id number] 07:51:00* Test Item Value Reference Range Interpretation Comments GLUBED (test code = GLUBED) 244 mg/dL 74-106 H Performed by certified award machine operator at [facility] BASIC METABOLIC [id number] 07:23:00* Test Item Value Reference Range Interpretation [...] CA) 7.9 mg/dL 8.5-10.1 L BASIC METABOLIC [id number] 07:13:00* Test Item Value Reference Range Interpretation [...] code = CA) mg/dL 8.5-10.1 CBC W/MANUAL [id number] 07:10:00* Test Item Value Reference Range Interpretation [...] MORPHOLOGY (test code = PLTMORPH) CBC W/MANUAL [id number] 07:10:00* Test Item Value Reference Range Interpretation [...] MORPHOLOGY (test code = PLTMORPH) CBC W/MANUAL [id number] 07:10:00* Test Item Value Reference Range Interpretation [...] MORPHOLOGY (test code = PLTMORPH) CBC W/MANUAL [id number] 07:09:00* Test Item Value Reference Range Interpretation [...] MORPHOLOGY (test code = PLTMORPH) CBC W/MANUAL [id number] 07:09:00* Test Item Value Reference Range Interpretation [...] MORPHOLOGY (test code = PLTMORPH) SED RATE [id number] 21:42:00* Test Item Value Reference Range Interpretation Comments SED RATE WESTERGREN (test code = SEDW) 76 mm/hr 0-15 H SED [id number] 21:42:00* Test Item Value Reference Range Interpretation Comments SED RATE (test code = SEDW) 76 mm/hr 0-15 H WINTROBE METHOD: NORMAL RANGE FOR MEN: 0-9 MM/HR WOMAN: 0-20 MM/HR [id number] 20:54:00* Test Item Value Reference Range Interpretation Comments GLUBED (test code = GLUBED) 345 mg/dL 74-106 H Performed by certified award machine operator at [facility] [id number] 16:36:00* Test Item Value Reference Range Interpretation Comments GLUBED (test code = GLUBED) 37 mg/dL 74-106 LL Performed by certified award machine operator at [facility] [id number] 16:30:00* Test Item Value Reference Range Interpretation Comments GLUBED (test code = GLUBED) 94 mg/dL 74-106 N Performed by certified award machine operator at [facility] [id number] 12:04:00* Test Item Value Reference Range Interpretation Comments GLUBED (test code = GLUBED) 236 mg/dL 74-106 H Performed by certified award machine operator at [facility] CBC W/MANUAL [id number] 08:49:00* Test Item Value Reference Range Interpretation [...] IMMAT) 0 % 0-0 N BASIC METABOLIC [id number] 08:29:00* Test Item Value Reference Range Interpretation [...] CA) 7.9 mg/dL 8.5-10.1 L CBC W/MANUAL [id number] 08:09:00* Test Item Value Reference Range Interpretation [...] MORPHOLOGY (test code = PLTMORPH) CBC W/MANUAL [id number] 08:09:00* Test Item Value Reference Range Interpretation [...] MORPHOLOGY (test code = PLTMORPH) CBC W/MANUAL [id number] 08:09:00* Test Item Value Reference Range Interpretation [...] MORPHOLOGY (test code = PLTMORPH) CBC W/MANUAL [id number] 08:09:00* Test Item Value Reference Range Interpretation [...] MORPHOLOGY (test code = PLTMORPH) CBC W/MANUAL [id number] 08:09:00* Test Item Value Reference Range Interpretation [...] PLTEST) PLATELET MORPHOLOGY (test code = PLTMORPH) [id number] 07:33:00* Test Item Value Reference Range Interpretation Comments GLUBED (test code = GLUBED) 315 mg/dL 74-106 H Performed by certified award machine operator at [facility] [id number] 19:56:00* Test Item Value Reference Range Interpretation Comments GLUBED (test code = GLUBED) 90 mg/dL 74-106 N Performed by certified award machine operator at [facility] [id number] 19:07:00* Test Item Value Reference Range Interpretation Comments GLUBED (test code = GLUBED) 107 mg/dL 74-106 H Performed by certified award machine operator at [facility] [id number] 19:07:00* Test Item Value Reference Range Interpretation Comments GLUBED (test code = GLUBED) 49 mg/dL 74-106 LL Performed by certified award machine operator [facility] [id number] 17:50:00* Test Item Value Reference Range Interpretation Comments POTASSIUM (test code = K) 3.0 mmol/L 3.5-5.1 L RE SULT VERIFIED BY REPEAT ANALYSIS [id number] 17:08:00* Test Item Value Reference Range Interpretation Comments GLUBED (test code = GLUBED) 66 mg/dL 74-106 L Performed by certified award machine operator at [facility] [id number] 16:57:00* Test Item Value Reference Range Interpretation Comments GLUBED (test code = GLUBED) 76 mg/dL 74-106 N Performed by certified award machine operator at [facility] [id number] 13:11:00* Test Item Value Reference Range Interpretation Comments POTASSIUM (test code = K) 5.2 mmol/L 3.5-5.1 H [id number] 11:49:00* Test Item Value Reference Range Interpretation Comments GLUBED (test code = GLUBED) 81 mg/dL 74-106 N Performed by certified award machine operator at [facility] [id number] 09:39:00* Test Item Value Reference Range Interpretation Comments GLUBED (test code = GLUBED) 78 mg/dL 74-106 N Performed by certified award machine operator at [facility] - MRI LOW EXT W/O CONT [id number] 09:36:00 FAX: Olegario Diaz MD [phone] [place]: St: ADM FAX: Heavenly Kerr DPM [phone] FAX: Raphael Riley Beckman [phone] Name: DAISHABREE Mendoza [facility] : 1975 Age/S: 43/M [address] [facility] Unit #: [id number] Loc: V.[address] [place] [address] Phys: Heavenly Null DPM Acct: [id number] Dis Date: Status: ADM IN ONE #: [phone] Exam Date: 02/15/2019 0859 FAX #: [phone] Reason: cellulitis EXAMS: CPT CODE: [id number] MR [place] L[place]T W/[place] [address] HISTORY: Cellu litis TECHNIQUE: Sagittal T1, sagittal [...] By: [id number] Orig Print D/T: S: 02/15/2019 (2533) PAGE 1 Signed Report [id number] 07:22:00* Test Item Value Reference Range Interpretation Comments GLUBED (test code = GLUBED) 57 mg/dL 74-106 L Performed by certified award machine operator at [facility] BASIC METABOLIC [id number] 05:15:00* Test Item Value Reference Range Interpretation Comments SODIUM (test code = NA) 136 mmol/L 136-145 N POTASSIUM (test code = K) 2.7 mmol/L 3.5-5.1 LL Re sults called to [id number] by VERIK 02/15/19 0515Critical results verified and [...] CA) 8.3 mg/dL 8.5-10.1 L C REACTIVE [id number] 04:21:00* Test Item Value Reference Range Interpretation Comments C REACTIVE PROTEIN (test code = CRP) 27.10 mg/dL 0-0.3 H CBC W/MANUAL [id number] 04:05:00* Test Item Value Reference Range Interpretation [...] IMMAT) 0 % 0-0 N CBC W/MANUAL [id number] 03:30:00* Test Item Value Reference Range Interpretation [...] PLTEST) PLATELET MORPHOLOGY (test code = PLTMORPH) [id number] 20:26:00* Test Item Value Reference Range Interpretation Comments GLUBED (test code = GLUBED) 151 mg/dL 74-106 H Performed by certified award machine operator at [facility] [id number] 17:12:00* Test Item Value Reference Range Interpretation Comments GLUBED (test code = GLUBED) 124 mg/dL 74-106 H Performed by certified award machine operator at [facility] [id number] 17:07:00* Test Item Value Reference Range Interpretation Comments GLUBED (test code = GLUBED) 81 mg/dL 74-106 N Performed by certified award machine operator at [facility] [id number] 12:13:00* Test Item Value Reference Range Interpretation Comments GLUBED (test code = GLUBED) 95 mg/dL 74-106 N Performed by certified award machine operator at [facility] CBC W/MANUAL [id number] 08:15:00* Test Item Value Reference Range Interpretation [...] code = IMMAT) 0 % 0-0 N [id number] 07:18:00* Test Item Value Reference Range Interpretation Comments GLUBED (test code = GLUBED) 195 mg/dL 74-106 H Performed by certified award machine operator at [facility] BASIC METABOLIC [id number] 07:16:00* Test Item Value Reference Range Interpretation [...] code = CA) 8.4 mg/dL 8.5-10.1 L [id number] 07:16:00* Test Item Value Reference Range Interpretation Comments MAGNESIUM (test code = MAG) 1.7 mg/dL 1.8-2.4 L CBC W/MANUAL [id number] 06:58:00* Test Item Value Reference Range Interpretation [...] MORPHOLOGY (test code = PLTMORPH) CBC W/MANUAL [id number] 06:58:00* Test Item Value Reference Range Interpretation [...] MORPHOLOGY (test code = PLTMORPH) CBC W/MANUAL [id number] 06:58:00* Test Item Value Reference Range Interpretation [...] MORPHOLOGY (test code = PLTMORPH) CBC W/MANUAL [id number] 06:58:00* Test Item Value Reference Range Interpretation [...] MORPHOLOGY (test code = PLTMORPH) CBC W/MANUAL [id number] 06:58:00* Test Item Value Reference Range Interpretation [...] MORPHOLOGY (test code = PLTMORPH) BASIC METABOLIC [id number] 06:56:00* Test Item Value Reference Range Interpretation [...] CALCIUM (test code = CA) mg/dL 8.5-10.1 [id number] 06:56:00* Test Item Value Reference Range Interpretation Comments MAGNESIUM (test code = MAG) mg/dL 1.8-2.4 [id number] 20:42:00* Test Item Value Reference Range Interpretation Comments GLUBED (test code = GLUBED) 261 mg/dL 74-106 H Performed by certified award machine operator at [facility] CBC W/MANUAL [id number] 10:55:00* Test Item Value Reference Range Interpretation [...] MORPHOLOGY (test code = PLTMORPH) NORMAL URINALYSIS [id number] 10:38:00* Test Item Value Reference Range Interpretation [...] Clean Catch- XR FOOT 3 + V [id number] 10:33:00 Name: BREE LINDSAY [facility] : 1975 Age/S:43 /M [address] [facility] Unit#:[id number] Loc: [place] [address] Phys: Chandan Cage MD Dis Date: PHONE #: [phone] Status: REG ER FAX #: [phone] Exam Date: 02/13/2019 Re ason: left foot swelling EXAMS: CPT CODE: [id number] XR FOOT 3 + [place] [address] CLINICAL HISTORY: left foot swelling TECHNIQUE: AP, [...] but no acute underlying bony injury. Location: [facility] at 1033 Reported and signed by: Mulugeta Espinoza MD CC: Tracy Cage MD; Riley Beckman DO Technologist: Stone Sadler RT(R)(CT) Trnsc rpt Data: 02/13/2019 (1033) t.IRAR.RR31 Orig Print D/T: S : 02/13/2019 (1039) PAGE 1 Signed Report LACTIC [id number] 10:28:00* Test Item Value Reference Range Interpretation Comments LACTIC ACID (test code = LACT) 1.6 MMOL/L 0.4-1.9 N BASIC METABOLIC [id number] 10:28:00* Test Item Value Reference Range Interpretation [...] CA) 8.7 mg/dL 8.4-10.2 N HEPATIC FUNCTION [id number] 10:28:00* Test Item Value Reference Range Interpretation [...] code = ALKP) 120 U/L 38-126 N [id number] 10:28:00* Test Item Value Reference Range Interpretation Comments TROPONIN-I (test code = TROPI) <0.015 ng/mL 0.00-0.056 N URINALYSIS [id number] 10:20:00* Test Item Value Reference Range Interpretation [...] HPF NONE Urine Source? Clean CatchBASIC METABOLIC [id number] 10:19:00* Test Item Value Reference Range Interpretation [...] CA) 8.7 mg/dL 8.4-10.2 N HEPATIC FUNCTION [id number] 10:19:00* Test Item Value Reference Range Interpretation [...] TOTAL (test code = ALKP) IUnit/L 45-117 [id number] 10:19:00* Test Item Value Reference Range Interpretation Comments TROPONIN-I (test code = TROPI) ng/mL 0-0.045 CBC W/MANUAL [id number] 10:13:00* Test Item Value Reference Range Interpretation [...] MORPHOLOGY (test code = PLTMORPH) CBC W/MANUAL [id number] 10:02:00* Test Item Value Reference Range Interpretation [...] MORPHOLOGY (test code = PLTMORPH) CBC W/MANUAL [id number] 10:02:00* Test Item Value Reference Range Interpretation [...] MORPHOLOGY (test code = PLTMORPH) CBC W/MANUAL [id number] 10:02:00* Test Item Value Reference Range Interpretation [...] MORPHOLOGY (test code = PLTMORPH) CBC W/MANUAL [id number] 10:02:00* Test Item Value Reference Range Interpretation [...] code = PLTMORPH) - XR CHEST 1 [id number] 09:56:00 Name: BREE LINDSAY [facility] : 1975 Age/S:43 /M [address] [facility] Unit#:[id number] Loc: [place] [address] Phys: Tracy Cage MD Dis Date: PHONE #: [phone] Status: REG ER FAX #: [phone] Exam Date: 02/13/2019 Reason: CODE SEPSIS EXAMS: CPT CODE: [id number] XR CHEST 1 V 17847 REASON FOR EXAM: CODE SEPSIS Exam Order [...] cholecystectomy. IMPRESSION: No acute cardiopulmonary process. Location: [facility] Elect ronically Signed by Mulugeta Espinoza MD on 02/13/2019 at 0956 Reported and signed by: Mulugeta Espinoza MD CC: Tracy Cage MD; Keeley Beckman DO Technologist: Stone Sadler RT(R)(CT) Trnscrpt Data: 02/13/2019 (0956) [id number].SDR.RR31 Orig Print D/T: S: 02/13/2019 (6384) PAGE 1 Signed Report [id number] 16:17:00* Test Item Value Reference Range Interpretation Comments GLUBED (test code = GLUBED) 187 mg/dL 74-106 H Performed by certified award machine operator at [facility] [id number] 11:57:00* Test Item Value Reference Range Interpretation Comments GLUBED (test code = GLUBED) 147 mg/dL 74-106 H Performed by certified award machine operator at [facility] [id number] 07:34:00* Test Item Value Reference Range Interpretation Comments GLUBED (test code = GLUBED) 110 mg/dL 74-106 H Performed by certified award machine operator at [facility] CBC W/MANUAL [id number] 05:59:00* Test Item Value Reference Range Interpretation [...] IMMAT) 0 % 0-0 N BASIC METABOLIC [id number] 05:25:00* Test Item Value Reference Range Interpretation Comments SODIUM (test code = NA) 138 mmol/L 136-145 N POTASSIUM (test code = K) 2.7 mmol/L 3.5-5.1 LL Re sults called to [id number] by DOT 02/12/19 0525Critical results verified and [...] CA) 8.4 mg/dL 8.5-10.1 L CBC W/MANUAL [id number] 05:04:00* Test Item Value Reference Range Interpretation [...] MORPHOLOGY (test code = PLTMORPH) CBC W/MANUAL [id number] 05:04:00* Test Item Value Reference Range Interpretation [...] MORPHOLOGY (test code = PLTMORPH) CBC W/MANUAL [id number] 05:04:00* Test Item Value Reference Range Interpretation [...] MORPHOLOGY (test code = PLTMORPH) CBC W/MANUAL [id number] 05:04:00* Test Item Value Reference Range Interpretation [...] MORPHOLOGY (test code = PLTMORPH) CBC W/MANUAL [id number] 05:04:00* Test Item Value Reference Range Interpretation [...] interpreted taking into account the patients history. [id number] 19:42:00* Test Item Value Reference Range Interpretation Comments GLUBED (test code = GLUBED) 131 mg/dL 74-106 H Performed by certified award machine operator at [facility] LACTIC [id number] 19:38:00* Test Item Value Reference Range Interpretation Comments LACTIC ACID (test code = LACT) 0.7 mmol/L 0.4-1.9 N [id number] 18:44:00* Test Item Value Reference Range Interpretation Comments GLUBED (test code = GLUBED) 129 mg/dL 74-106 H Performed by certified award machine operator at [facility] [id number] 16:34:00* Test Item Value Reference Range Interpretation Comments GLUBED (test code = GLUBED) 66 mg/dL 74-106 L Performed by certified award machine operator at [facility] [id number] 12:07:00* Test Item Value Reference Range Interpretation Comments GLUBED (test code = GLUBED) 285 mg/dL 74-106 H Performed by certified award machine operator at [facility] - XR CHEST 1 [id number] 08:53:00 FAX: Faith Cook MD [phone] [place]: St: ADM FAX: Raphael BeckmanMineshDylan JUNG [phone] Name: BREE LINDSAY [facility] : 1975 Age/S: 43/M [address] [facility] Unit #: [id number] Loc: V.[address] [place] [address] Phys: Faith Roy MD Acct: [id number] Dis Date: Status: ADM IN PHONE #: [phone] Exam Date: 02/11/2019 08 FAX #: [phone] Reason: Leukocytosis EXAMS: CPT CODE: [id number] XR CHEST 1 V 20118 HISTORY: Leukocytosis. COMPARISON: January 12, 2018. Location: [facility]. No acute infiltrates, effusion or congestion is [...] 293 mg/dL 74-106 H Performed by certified award machine operator at [facility] CBC W/MANUAL [id number] 06:45:00* Test Item Value Reference Range Interpretation [...] IMMAT) 0 % 0-0 N BASIC METABOLIC [id number] 06:37:00* Test Item Value Reference Range Interpretation [...] CA) 8.6 mg/dL 8.5-10.1 N BASIC METABOLIC [id number] 06:31:00* Test Item Value Reference Range Interpretation [...] code = CA) mg/dL 8.5-10.1 CBC W/MANUAL [id number] 06:18:00* Test Item Value Reference Range Interpretation [...] MORPHOLOGY (test code = PLTMORPH) CBC W/MANUAL [id number] 06:18:00* Test Item Value Reference Range Interpretation [...] MORPHOLOGY (test code = PLTMORPH) CBC W/MANUAL [id number] 06:18:00* Test Item Value Reference Range Interpretation [...] MORPHOLOGY (test code = PLTMORPH) CBC W/MANUAL [id number] 06:18:00* Test Item Value Reference Range Interpretation [...] MORPHOLOGY (test code = PLTMORPH) CBC W/MANUAL [id number] 06:18:00* Test Item Value Reference Range Interpretation [...] PLATELET MORPHOLOGY (test code = PLTMORPH) URINALYSIS [id number] 02:01:00* Test Item Value Reference Range Interpretation [...] BE COLLECTED BY NURSEDRUGS OF ABUSE SCREEN [id number] 02:01:00* Test Item Value Reference Range Interpretation [...] Source? VoidedSAMPLE TO BE COLLECTED BY NURSEURINALYSIS [id number] 01:45:00* Test Item Value Reference Range Interpretation [...] BE COLLECTED BY NURSEDRUGS OF ABUSE SCREEN [id number] 01:45:00* Test Item Value Reference Range Interpretation [...] 2143Urine Source? VoidedSAMPLE TO BE COLLECTED BY [id number] 23:31:00* Test Item Value Reference Range Interpretation Comments GLUBED (test code = GLUBED) 223 mg/dL 74-106 H Performed by certified award machine operator at [facility] [id number] 18:09:00* Test Item Value Reference Range Interpretation Comments GLUBED (test code = GLUBED) 201 mg/dL 74-106 H Performed by certified award machine operator at [facility] [id number] 11:27:00* Test Item Value Reference Range Interpretation Comments GLUBED (test code = GLUBED) 291 mg/dL 74-106 H Performed by certified award machine operator at [facility] [id number] 08:25:00* Test Item Value Reference Range Interpretation Comments GLUBED (test code = GLUBED) 288 mg/dL 74-106 H Performed by certified award machine operator at [facility] - XR ABDOMEN AP 1 [id number] 08:01:00 FAX: Bobby Self MD [place]: B St: ADM FAX: Riley Zavala DO [phone] Name: DAISHABREE [facility] : 1975 Age/S: 43/M [address] [facility] Unit #: [id number] Loc: V.[address] [place] [address] Phys: Bobby Self MD Acct: [id number] Dis Date: Status: ADM IN PHONE #: [phone] Exam Date: 02/10/2019 0805 FAX #: [phone] Reason: abdominal pain nausea and vomiting EXAMS: CPT CODE: [id number] XR ABDOMEN AP 1 V 13134 HISTORY: abdominal pain nausea and vomiting TECHNIQUE: [...] into account the patients history. BASIC METABOLIC [id number] 00:47:00* Test Item Value Reference Range Interpretation [...] CA) 9.1 mg/dL 8.5-10.1 N HEPATIC FUNCTION [id number] 00:47:00* Test Item Value Reference Range Interpretation [...] reference range due to change in reagent. [id number] 00:47:00* Test Item Value Reference Range Interpretation Comments LIPASE (test code = LIP) < 10 U/L 73.0-393.0 L CBC W/O [id number] 00:11:00* Test Item Value Reference Range Interpretation [...] code = MPV) 9.7 fL 6.7-11.0 N [id number] 07:24:00* Test Item Value Reference Range Interpretation Comments GLUBED (test code = GLUBED) 269 mg/dL 74-106 H Performed by certified award machine operator at [facility] [id number] 20:19:00* Test Item Value Reference Range Interpretation Comments GLUBED (test code = GLUBED) 199 mg/dL 74-106 H Performed by certified award machine operator at [facility] [id number] 16:56:00* Test Item Value Reference Range Interpretation Comments GLUBED (test code = GLUBED) 153 mg/dL 74-106 H Performed by certified award machine operator at [facility] [id number] 11:42:00* Test Item Value Reference Range Interpretation Comments GLUBED (test code = GLUBED) 231 mg/dL 74-106 H Performed by certified award machine operator at [facility] [id number] 08:17:00* Test Item Value Reference Range Interpretation Comments GLUBED (test code = GLUBED) 160 mg/dL 74-106 H Performed by certified award machine operator at [facility] CBC W/AUTO [id number] 06:43:00* Test Item Value Reference Range Interpretation [...] NRBC#) 0.00 K/mm3 0.0-0.1 N BASIC METABOLIC [id number] 06:43:00* Test Item Value Reference Range Interpretation [...] CA) 8.8 mg/dL 8.5-10.1 N BASIC METABOLIC [id number] 06:26:00* Test Item Value Reference Range Interpretation [...] (test code = CA) mg/dL 8.5-10.1 URINALYSIS [id number] 23:07:00* Test Item Value Reference Range Interpretation [...] Urine Source? Clean CatchDRUGS OF ABUSE SCREEN [id number] 23:07:00* Test Item Value Reference Range Interpretation [...] NEGATIVE <300 ng/mL Urine Source? Clean CatchURINALYSIS [id number] 22:44:00* Test Item Value Reference Range Interpretation [...] Urine Source? Clean CatchDRUGS OF ABUSE SCREEN [id number] 22:44:00* Test Item Value Reference Range Interpretation [...] <300 ng/mL Urine Source? Clean CatchBASIC METABOLIC [id number] 18:12:00* Test Item Value Reference Range Interpretation [...] CA) 10.0 mg/dL 8.5-10.1 N HEPATIC FUNCTION [id number] 18:12:00* Test Item Value Reference Range Interpretation [...] reference range due to change in reagent. [id number] 18:12:00* Test Item Value Reference Range Interpretation Comments LIPASE (test code = LIP) < 10 U/L 73.0-393.0 L BASIC METABOLIC [id number] 18:04:00* Test Item Value Reference Range Interpretation [...] code = CA) mg/dL 8.5-10.1 HEPATIC FUNCTION [id number] 18:04:00* Test Item Value Reference Range Interpretation [...] TOTAL (test code = ALKP) IUnit/L 45-117 [id number] 18:04:00* Test Item Value Reference Range Interpretation Comments LIPASE (test code = LIP) U/L 73.0-393.0 CBC W/O [id number] 18:00:00* Test Item Value Reference Range Interpretation [...] code = MPV) 10.1 fL 6.7-11.0 N [id number] 17:11:00* Test Item Value Reference Range Interpretation Comments GLUBED (test code = GLUBED) 108 mg/dL 74-106 H Performed by certified award machine operator at [facility] [id number] 14:49:00 RUN DATE: 12/21/18 [facility] (Former[facility]) PAGE 1 RUN TIME: 1449 Specimen Inqui ry RUN USER: INTERFACE PATIENT: BREE LINDSAY ACCT #: [id number] LOC: FAWN U #: [id number] AGE/SX: 43/M ROOM: [facility] RE12/16/18REG DR: Olegario Diaz MD : 75 BED: A DIS: 12/19/18 STATUS: DIS IN TLOC: SPEC #: [id number] RECD: 12/20/18 STATUS: SHAHRAM LUEVANO #: [id number] HUY: 12/18/18- [facility] DR: Sav Coffey MD ENTERED: 12/20/18 SP TYPE: GALLBLADD OT DR: Levi Natarajan i, MD, Shao-Chun DOORDERED: GROSS COPIES TO: Levi Lakhani MD [address] [place] [address] Sav Coffey MD [address] [place] [address] [place] [address] [place] [address] MARKERS: ABNORMAL TISSUE, GALLBL ADDER PROCEDURES: GROSS (12/21/18-1158) TISSUES: GALLBLADDER, NOS CLINICAL HISTORY COLLECTION DATE: 12/18/18 CHOLECYSTITIS FIN AL DIAGNOSIS Gallbladder, cholecystectomy: PATCHY MILD CHRONIC ACALCUL OUS CHOLECYSTITIS NEGATIVE FOR MALIGNANCY RRB/sm A 60204 CONTINUED ON NEXT PAGE RUN DATE : 12/21/18 [facility] PAGE 2 RUN TIME: 1449 Specimen Inquiry RUN USER: INTERFACE SPEC #: [id number] PATIENT: BREE LINDSAY #V [id number] (Continued) MACROSCOPIC The specimen is r eceived [...] thickness. No foc al lesions are identified. Roller Leveler tissue is submitted in a single violeta sette. GROSS PERFORMED AT [facility] [address] [place] [address] [phone] MICROSCOPIC All of the stains, including any controls performed, st ain appropriately. MICROSCOPIC PERFORMED AT [facility] [address] [place] [address] [phone] PERFORMING SITE Diagnosis performed at: [facility] [address] [place] [address] Signed SIGNATMARIANO E ON FILE Dino Patton MD 12/21/18 1449 END OF REPORT GLUBED 2018-12-19 11:45:00* Test Item Value Reference Range Interpretation Comments GLUBED (test code = GLUBED) 238 mg/dL 74-106 H Performed by certified award machine operator at [facility] BASIC METABOLIC [id number] 08:28:00* Test Item Value Reference Range Interpretation [...] code = CA) 8.2 mg/dL 8.5-10.1 L [id number] 08:28:00* Test Item Value Reference Range Interpretation Comments MAGNESIUM (test code = MAG) 1.5 mg/dL 1.8-2.4 L BASIC METABOLIC [id number] 08:21:00* Test Item Value Reference Range Interpretation [...] CALCIUM (test code = CA) mg/dL 8.5-10.1 [id number] 08:21:00* Test Item Value Reference Range Interpretation Comments MAGNESIUM (test code = MAG) mg/dL 1.8-2.4 CBC W/AUTO [id number] 07:56:00* Test Item Value Reference Range Interpretation [...] DIFF REQUIRED (test code = MDIFF) NO [id number] 07:38:00* Test Item Value Reference Range Interpretation Comments GLUBED (test code = GLUBED) 277 mg/dL 74-106 H Performed by certified award machine operator at [facility] [id number] 20:34:00* Test Item Value Reference Range Interpretation Comments GLUBED (test code = GLUBED) 165 mg/dL 74-106 H Performed by certified award machine operator at [facility] [id number] 19:18:00* Test Item Value Reference Range Interpretation Comments GLUBED (test code = GLUBED) 203 mg/dL 74-106 H Performed by certified award machine operator at [facility] BASIC METABOLIC [id number] 11:47:00* Test Item Value Reference Range Interpretation [...] mg/dL 8.5-10.1 L PT IN SURGERY PAIGE ORD1749 V.LAB.KP2 12/18/18 [id number] 11:42:00* Test Item Value Reference Range Interpretation Comments GLUBED (test code = GLUBED) 360 mg/dL 74-106 H Performed by certified award machine operator at [facility] BASIC METABOLIC [id number] 11:41:00* Test Item Value Reference Range Interpretation [...] CA) mg/dL 8.5-10.1 PT IN SURGERY RN HLP0583 V.LAB.2 12/18/18 0926CBC W/AUTO [id number] 11:11:00* Test Item Value Reference Range Interpretation [...] = MDIFF) NO PT IN SURGERY PAIGE CRP6181 V.LAB.KP2 12/18/18 1828IAHMXR4344-72-26 03:55:00* Test Item Value Reference Range Interpretation Comments GLUBED (test code = GLUBED) 269 mg/dL 74-106 H Performed by certified award machine operator at [facility] [id number] 23:58:00* Test Item Value Reference Range Interpretation Comments GLUBED (test code = GLUBED) 233 mg/dL 74-106 H Performed by certified award machine operator at [facility] [id number] 09:16:00* Test Item Value Reference Range Interpretation Comments GLUBED (test code = GLUBED) 179 mg/dL 74-106 H Performed by certified award machine operator at [facility] BASIC METABOLIC [id number] 06:40:00* Test Item Value Reference Range Interpretation Comments SODIUM (test code = NA) 141 mmol/L 136-145 N POTASSIUM (test code = K) 2.8 mmol/L 3.5-5.1 Norma calderon called to NFB0111 by NIKI 12/17/18 0639Critical results verified and [...] code = CA) 8.3 mg/dL 8.5-10.1 L [id number] 06:40:00* Test Item Value Reference Range Interpretation Comments MAGNESIUM (test code = MAG) 1.6 mg/dL 1.8-2.4 L B-TYPE NATRIURETIC [id number] 06:34:00* Test Item Value Reference Range Interpretation Comments B-TYPE NATRIURETIC PEPTIDE (test code = BNP) 128.51 pgram/mL 0-100 H CBC W/AUTO [id number] 05:33:00* Test Item Value Reference Range Interpretation [...] code = NRBC#) 0.00 K/mm3 0.0-0.1 N [id number] 02:55:00* Test Item Value Reference Range Interpretation Comments GLUBED (test code = GLUBED) 102 mg/dL 74-106 N Performed by certified award machine operator at [facility] [id number] 21:18:00* Test Item Value Reference Range Interpretation Comments GLUBED (test code = GLUBED) 224 mg/dL 74-106 H Performed by certified award machine operator at [facility] [id number] 16:43:00* Test Item Value Reference Range Interpretation Comments GLUBED (test code = GLUBED) 158 mg/dL 74-106 H Performed by certified award machine operator at [facility] DRUGS OF ABUSE SCREEN [id number] 14:45:00* Test Item Value Reference Range Interpretation [...] NEGATIVE <300 ng/mL DRUGS OF ABUSE SCREEN [id number] 14:24:00* Test Item Value Reference Range Interpretation [...] ng/mL - HEPA IMAG INCL GB W [id number] 14:14:00 FAX: Leia Kendrick MSN [place]: B St: ADM FAX: Bobby Self MD FAX: Riley Zavala DO [phone] Name: BREE LINDSAY [facility] : 1975 Age/S: 43/M [address] [facility] Unit #: [id number] Loc: [address] [place] [address] Phys: Leia Kendrick MSN Acct: [id number] Dis Date: Status: ADM IN ONE #: [phone] Exam Date: 12/16/2018 1412 FAX #: [phone] Reason: recurrent n/v EXAMS: CPT CODE: [id number] HUANG PA IMAG INCL GB W PHA [id number] HISTORY: recur rent n/v EXAM: NUCLEAR MEDICINE [...] DO Technologist: ESAU ASHRAF Trnscrd Date/Time/By: 12/16/2018 (1594) : By: Aden.RR3 1 Orig Print D/T: S: 12/16/2018 (4556) PAGE 1 Signed Report GLUBED 2018-12-16 11:12:00* Test Item Value Reference Range Interpretation Comments GLUBED (test code = GLUBED) 133 mg/dL 74-106 H Performed by certified award machine operator at [facility] - US ABDOMEN [id number] 10:25:00 Name: BREE LINDSAY [facility] : 1975 Age/S: 43 / M [address] [facility] Unit #: [id number] Loc: BELIA Sung [address] Phys: Leia Kendrick Acct: [id number] Dis Date: Status: ADM IN PHONE #: [phone] Exam Date: 12/16/2018 0940 FAX #: [phone] Reason: n/v EXAMS: CPT CODE: [id number] US ABDOMEN COMPLETE 33797 REASON FOR EXAM: n/v EXAM ORDER DATE: [...] PAGE 1 Signed Report (CONTINUED) Name: BREE LINDSAY [facility] : 1975 Age/S: 43 / M [address] [facility] Unit #: [id number] Loc: BELIA [place] [address] Phys: Leia Kendrick Acct: [id number] Dis Date: Status: AD M IN PHONE #: [phone] Exam Date: 12/16 FAX #: [phone] Reason: n/v EXAMS: CPT CODE: [id number] US ABDOMEN COMPLETE 76 700 <Continued> Left [...] Riley Beckman DO Technologist: NOEMY OLVERA RT(R),CATALINA Trnctb Date/Time: 12/16/2018 (1025) t.[email or web address].RR31 Orig Print D/T: S: 12/16/2018 (1028) Probe: PAGE 2 Signed Report [id number] 07:04:00* Test Item Value Reference Range Interpretation Comments GLUBED (test code = GLUBED) 177 mg/dL 74-106 H Performed by certified award machine operator at [facility] URINALYSIS [id number] 00:25:00* Test Item Value Reference Range Interpretation [...] FEW A Urine Source? Clean CatchBASIC METABOLIC [id number] 00:22:00* Test Item Value Reference Range Interpretation [...] CA) 8.8 mg/dL 8.5-10.1 N HEPATIC FUNCTION [id number] 00:22:00* Test Item Value Reference Range Interpretation [...] reference range due to change in reagent. [id number] 00:22:00* Test Item Value Reference Range Interpretation Comments LIPASE (test code = LIP) < 10 U/L 73.0-393.0 L [id number] 00:22:00* Test Item Value Reference Range Interpretation Comments TROPONIN-I (test code = TROPI) <0.015 ng/mL 0-0.045 N BASIC METABOLIC [id number] 00:12:00* Test Item Value Reference Range Interpretation [...] code = CA) mg/dL 8.5-10.1 HEPATIC FUNCTION [id number] 00:12:00* Test Item Value Reference Range Interpretation [...] TOTAL (test code = ALKP) IUnit/L 45-117 [id number] 00:12:00* Test Item Value Reference Range Interpretation Comments LIPASE (test code = LIP) U/L 73.0-393.0 [id number] 00:12:00* Test Item Value Reference Range Interpretation Comments TROPONIN-I (test code = TROPI) ng/mL 0-0.045 CBC W/O [id number] 00:06:00* Test Item Value Reference Range Interpretation [...] MPV) 10.2 fL 6.7-11.0 N BASIC METABOLIC [id number] 08:09:00* Test Item Value Reference Range Interpretation [...] CA) 9.0 mg/dL 8.5-10.1 N HEPATIC FUNCTION [id number] 08:09:00* Test Item Value Reference Range Interpretation [...] reference range due to change in reagent. [id number] 08:09:00* Test Item Value Reference Range Interpretation Comments LIPASE (test code = LIP) < 10 U/L 73.0-393.0 L [id number] 08:09:00* Test Item Value Reference Range Interpretation Comments TROPONIN-I (test code = TROPI) <0.015 ng/mL 0-0.045 N BASIC METABOLIC [id number] 07:52:00* Test Item Value Reference Range Interpretation [...] code = CA) mg/dL 8.5-10.1 HEPATIC FUNCTION [id number] 07:52:00* Test Item Value Reference Range Interpretation [...] TOTAL (test code = ALKP) IUnit/L 45-117 [id number] 07:52:00* Test Item Value Reference Range Interpretation Comments LIPASE (test code = LIP) U/L 73.0-393.0 [id number] 07:52:00* Test Item Value Reference Range Interpretation Comments TROPONIN-I (test code = TROPI) ng/mL 0-0.045 CBC W/O [id number] 07:40:00* Test Item Value Reference Range Interpretation [...] = MPV) 10.5 fL 6.7-11.0 N POC-Glucose [id number] 17:19:00* Test Item Value Reference Range Interpretation Comments POC-Glucose Meter (test code = 1538) 266 mg/dL 70-[address] [facility] [address] [facility] [address] Lab Interpretation (test code = 76556-5) [facility]normal [facility] [id number] 17:19:00* Test Item Value Reference Range Interpretation Comments POC-GLUCOSE METER (BEAKER) (test code = 1538) 266 mg/dL 70-110 H TESTED AT [place] [address] [facility] [address] ECG 12 [id number] 14:27:26Interface, External Ris In - 12/14/2018 2:27 PM CDTVentricular Rate 78 BPMAtrial Rate 78 BPMP-R Interval 168 msQRS Duration 80 msQ-T Interval 350 msQTC Calculation(Bazett) 399 msP Stringer 52 degreesR Stringer -14 degreesT Stringer 35 degreesNormal sinus rhythmNormal ECGNo previous ECGs availableConfirmed by MD MEGGAN, MARCELINO ([id number]) on 12/14/2018 2:27:24 [facility] [id number] 12:17:00* Test Item Value Reference Range Interpretation Comments POC-GLUCOSE METER (BEAKER) (test code = 1538) 240 mg/dL 70-110 H TESTED AT [place] [address] [facility] [address] POCT-GLUCOSE [id number] 08:12:00* Test Item Value Reference Range Interpretation Comments POC-GLUCOSE METER (BEAKER) (test code = 1538) 184 mg/dL 70-110 H TESTED AT [place] [address] [facility] [address] Basic metabolic [id number] 06:18:00* Test Item Value Reference Range Interpretation [...] mg/dL 70-105 H Calcium (test code = 63713-1) 8.7 mg/dL 8.4-10.2 EGFR (test code = 24636-7) 87 mL/min/1.73 sq m ESTIMATED GFR IS NOT ACCURATE CREATININE CLEARANCE IN PREDICTING GLOMERULAR FILTRATION RATE. ESTIMATED GFR IS NOT APPLICABLE FOR DIALYSIS PATIENTS. Lab Interpretation (test code = 03877-5) [facility]normal [facility] 06:18:00* Test Item Value Reference Range Interpretation Comments Magnesium (test code = 66766-0) 1.6 mg/dL 1.6-2.6 Lab Interpretation (test code = 80719-3) Normal [facility] 06:18:00* Test Item Value Reference Range Interpretation Comments Phosphorus (test code = 2777-1) 2.2 mg/dL 2.3-4.7 L Lab Interpretation (test code = 45696-5) Abnormal [facility]2019-09-17 06:18:00* Test Item Value Reference Range Interpretation Comments PHOSPHORUS (BEAKER) (test code = 604) 2.2 mg/dL 2.3-4.7 L [id number] 06:18:00* Test Item Value Reference Range Interpretation Comments MAGNESIUM (BEAKER) (test code = 627) 1.6 mg/dL 1.6-2.6 BASIC METABOLIC [id number] 06:18:00* Test Item Value Reference Range Interpretation [...] PATIENTS. CBC with platelet count + automated [id number] 06:16:00* Test Item Value Reference Range Interpretation [...] clinical correlation required. MPV (test code = 92743-9) 10.4 fL 9.4-12.4 nRBC (test code = [...] % 0-1 Lab Interpretation (test code = 53595-6) Abnormal [facility] W/PLT COUNT & AUTO IZTQJTMSIGWO7481-05-13 06:16:00* Test Item Value Reference Range Interpretation [...] code = 2801) 0 % 0-1 POCT-GLUCOSE [id number] 21:15:00* Test Item Value Reference Range Interpretation Comments POC-GLUCOSE METER (BEAKER) (test code = 1538) 307 mg/dL 70-110 H Notified RN or MD Patient refused repeat test/TESTED AT [facility] [address] [facility] [address] Hemoglobin [id number] 19:48:00* Test Item Value Reference Range Interpretation Comments Hemoglobin A1C (test code = 4548-4) 8.4 % 4.3-6.1 H Lab Interpretation (test code = 65934-0) Abnormal [facility]MOGLOB[facility] [id number] 19:48:00* Test Item Value Reference Range Interpretation Comments HEMOGLOBIN A1C (BEAKER) (test code = 368) 8.4 % 4.3-6.1 H Lipid [id number] 16:17:00* Test Item Value Reference Range Interpretation Comments Triglycerides (test code = 2571-8) 101 mg/dL Cholesterol (test code = 2093-3) 151 mg/dL HDL (test code = 2085-9) 38 mg/dL LDL Calculated (test code = 82304-8) 93 mg/dL BESS (test code = BESS) Triglyceride Reference Range : Low Risk <150 Borderline 150-199 High Risk 200-499 Very High Risk >=500 Cholesterol Reference Range: Low Risk <200 Borderline 200-239 High Risk >240 HDL Cholesterol Reference Range: Low Risk >=60 High Risk <40 LDL Cholesterol Reference Range: Optimal <100 Near Optimal 100-129 Borderline 130-159 High 160-189 Very High >=190 [facility]atic function pjugm9095-97-01 16:17:00* Test Item Value Reference Range Interpretation Comments Protein, Total (test code = 2885-2) 6.9 6.0- 8.3 gm/dL Albumin (test code = 90116-9) 3.9 g/dL 3.5-5 Total Bilirubin (test code = 1974-2) 0.5 mg/dL 0.2-1.2 Bilirubin, Direct (test code = 1967-7) 0.2 mg/dL 0.1-0.5 Alkaline Phosphatase (test code = 6768-6) 80 U/L 40-150 AST (test code = 1920-8) 18 U/L 5-34 ALT (test code = 1742-6) 15 U/L 6-55 Lab Interpretation (test code = 46994-5) Normal [facility] [id number] 16:17:00* Test Item Value Reference Range Interpretation [...] High 160-189 Very High >=190 BASIC METABOLIC [id number] 16:17:00* Test Item Value Reference Range Interpretation [...] NOT APPLICABLE FOR DIALYSIS PATIENTS. HEPATIC FUNCTION [id number] 16:17:00* Test Item Value Reference Range Interpretation [...] U/L 6-55 CBC W/PLT COUNT & AUTO [id number] 16:07:00* Test Item Value Reference Range Interpretation [...] code = 2801) 0 % 0-1 POCT-GLUCOSE [id number] 16:01:00* Test Item Value Reference Range Interpretation Comments POC-GLUCOSE METER (BEAKER) (test code = 1538) 265 mg/dL 70-110 H TESTED AT [place] [address] [facility] [address] POCT-GLUCOSE [id number] 12:34:00* Test Item Value Reference Range Interpretation Comments POC-GLUCOSE METER (BEAKER) (test code = 1538) 271 mg/dL 70-110 H TESTED AT [address] [address] Magnesium Chvko9535-83-14 18:51:00* Test Item Value Reference Range Interpretation Comments Magnesium Level (test code = 53805-2) 1.8 1.3-2.1 [facility] 18:51:00* Test Item Value Reference Range Interpretation Comments Lipase (test code = 3040-3) < 4 8-78 L [facility]Magn[facility] Wcqcv1696-95-39 18:51:00* Test Item Value Reference Range Interpretation Comments Magnesium Level (test code = 82309-4) 1.8 1.3-2.1 [facility]2019-09-15 18:51:00* Test Item Value Reference Range Interpretation Comments Lipase (test code = 3040-3) < 4 8-78 L [facility] Gdxcv1119-55-01 18:51:00* Test Item Value Reference Range Interpretation Comments Magnesium Level (test code = 97386-2) 1.8 1.3-2.1 [facility] HospitalLip[facility]2019-09-15 18:51:00* Test Item Value Reference Range Interpretation Comments Lipase (test code = 3040-3) < 4 8-78 L [facility] HospitalLip[facility]2019-09-15 18:51:00* Test Item Value Reference Range Interpretation Comments Lipase (test code = 3040-3) < 4 8-78 L [facility] Gjdqcyk2575-87-35 20:52:00* Test Item Value Reference Range Interpretation Comments Blood Culture (test code = 07125728) NO GROWTH AFTER 5 DAYS, FINAL REPORT [facility] Pzvcbmm3142-45-95 20:52:00* Test Item Value Reference Range Interpretation Comments Blood Culture (test code = 85051125) NO GROWTH AFTER 5 DAYS, FINAL REPORT [facility] Yfzdmgm4545-00-14 20:52:00* Test Item Value Reference Range Interpretation Comments Blood Culture (test code = 87414721) NO GROWTH AFTER 5 DAYS, FINAL REPORT [facility] Triqhxl2176-54-56 20:52:00* Test Item Value Reference Range Interpretation Comments Blood Culture (test code = 99598711) NO GROWTH AFTER 5 DAYS, FINAL REPORT [facility] Ycedknx7082-16-59 15:19:00* Test Item Value Reference Range Interpretation Comments Bedside Glucose (test code = 22067-8) 261 70-120 H Meter ID: [id number] Glucose 2018-11-25 15:19:00* Test Item Value Reference Range Interpretation Comments Bedside Glucose (test code = 52299-0) 261 70-120 H Meter ID: [id number] Scott & [facility] Glucose 2018-11-25 15:19:00* Test Item Value Reference Range Interpretation Comments Bedside Glucose (test code = 15603-0) 261 70-120 H Meter ID: [id number] Scott & [facility] Glucose 2018-11-25 15:19:00* Test Item Value Reference Range Interpretation Comments Bedside Glucose (test code = 69238-7) 261 70-120 H Meter ID: [id number] Memorial HospitalWhite Blood Count 2018-11-25 06:12:00* Test Item Value Reference Range Interpretation Comments White Blood Count (test code = 6690-2) 10.09 4.8-10.8 [facility] HospitalRed Blood Txluq8971-49-22 06:12:00* Test Item Value Reference Range Interpretation Comments Red Blood Count (test code = 789-8) 3.20 4.3-5.7 L [facility] HospitalHemoglobin2019-08-29 06:12:00* Test Item Value Reference Range Interpretation Comments Hemoglobin (test code = 16646-3) 9.0 14.0-18.0 L [facility] HospitalHematocrit2019-08-29 06:12:00* Test Item Value Reference Range Interpretation Comments Hematocrit (test code = 4544-3) 28.1 38.2-49.6 L [facility] HospitalMean Corpuscular Bocjlw6152-68-22 06:12:00* Test Item Value Reference Range Interpretation Comments Mean Corpuscular Volume (test code = 787-2) 87.8 81-99 [facility] HospitalMean Corpuscular Cbrcfhuxwq3709-83-99 06:12:00* Test Item Value Reference Range Interpretation Comments Mean Corpuscular Hemoglobin (test code = 785-6) 28.1 28-32 [facility] HospitalMean Corpuscular Hemoglobin Concent 2018-11-25 06:12:00* Test Item Value Reference Range Interpretation Comments Mean Corpuscular Hemoglobin Concent (test code = 786-4) 32.0 31-35 [facility] HospitalRed Cell Distribution Yopjx1170-45-02 06:12:00* Test Item Value Reference Range Interpretation Comments Red Cell Distribution Width (test code = 70234-6) 13.7 11.7 -14.4 [facility] HospitalPlatelet Mobgr4380-90-89 06:12:00* Test Item Value Reference Range Interpretation Comments Platelet Count (test code = 777-3) 185 140-360 [facility] HospitalNeutrophils (%) (Auto)2018-11-25 06:12:00 * Test Item Value Reference Range Interpretation Comments Neutrophils (%) (Auto) (test code = 44167-9) 60.5 38.7-80.0 [facility] HospitalLymphocytes (%) (Auto)2018-11-25 06:12:00 * Test Item Value Reference Range Interpretation Comments Lymphocytes (%) (Auto) (test code = 736-9) 24.7 18.0-39.1 [facility] HospitalMonocytes (%) (Auto)2018-11-25 06:12:00* Test Item Value Reference Range Interpretation Comments Monocytes (%) (Auto) (test code = 5905-5) 12.2 4.4-11.3 H [facility] HospitalEosinophils (%) (Auto)2018-11-25 06:12:00 * Test Item Value Reference Range Interpretation Comments Eosinophils (%) (Auto) (test code = 713-8) 2.0 0.0-6.0 [facility] HospitalBasophils (%) (Auto)2018-11-25 06:12:00* Test Item Value Reference Range Interpretation Comments Basophils (%) (Auto) (test code = 706-2) 0.5 0.0-1.0 [facility] HospitalIM GRANULOCYTES %2018-11-25 06:12:00* Test Item Value Reference Range Interpretation Comments IM GRANULOCYTES % (test code = IM GRANULOCYTES %) 0.1 0.0- 1.0 [facility] HospitalNeutrophils # (Auto)2018-11-25 06:12:00* Test Item Value Reference Range Interpretation Comments Neutrophils # (Auto) (test code = 751-8) 6.1 2.1-6.9 [facility] HospitalLymphocytes # (Auto)2018-11-25 06:12:00* Test Item Value Reference Range Interpretation Comments Lymphocytes # (Auto) (test code = 25003-6) 2.5 1.0-3.2 [facility] HospitalMonocytes # (Auto)2018-11-25 06:12:00* Test Item Value Reference Range Interpretation Comments Monocytes # (Auto) (test code = 742-7) 1.2 0.2-0.8 H [facility] HospitalEosinophils # (Auto)2018-11-25 06:12:00* Test Item Value Reference Range Interpretation Comments Eosinophils # (Auto) (test code = 711-2) 0.2 0.0-0.4 [facility] HospitalBasophils # (Auto)2018-11-25 06:12:00* Test Item Value Reference Range Interpretation Comments Basophils # (Auto) (test code = 704-7) 0.1 0.0-0.1 [facility] HospitalAbsolute Immature Granulocyte (auto 2018-11-25 06:12:00* Test Item Value Reference Range Interpretation Comments Absolute Immature Granulocyte (auto (zeenat t code = Absolute Immature Granulocyte (auto) 0.01 0-0.1 [facility] HospitalWhite Blood Jnfqa6576-41-75 06:12:00* Test Item Value Reference Range Interpretation Comments White Blood Count (test code = 6690-2) 10.09 4.8-10.8 [facility] HospitalRed Blood Sxkbx6546-75-81 06:12:00* Test Item Value Reference Range Interpretation Comments Red Blood Count (test code = 789-8) 3.20 4.3-5.7 L [facility] HospitalHemoglobin2019-08-29 06:12:00* Test Item Value Reference Range Interpretation Comments Hemoglobin (test code = 17030-3) 9.0 14.0-18.0 L Stephens [facility] Test Item Value Reference Range Interpretation Comments Hematocrit (test code = 4544-3) 28.1 38.2-49.6 L [facility] HospitalMean Corpuscular Zmvdpx8825-59-74 06:12:00* Test Item Value Reference Range Interpretation Comments Mean Corpuscular Volume (test code = 787-2) 87.8 81-99 [facility]Mean Corpuscular Creiprvefo6371-22-59 06:12:00* Test Item Value Reference Range Interpretation Comments Mean Corpuscular Hemoglobin (test code = 785-6) 28.1 28-32 [facility]Mean Corpuscular Hemoglobin Concent 2018-11-25 06:12:00* Test Item Value Reference Range Interpretation Comments Mean Corpuscular Hemoglobin Concent (test code = 786-4) 32.0 31-35 [facility] HospitalRed Cell Distribution Qbxdr7950-76-14 06:12:00* Test Item Value Reference Range Interpretation Comments Red Cell Distribution Width (test code = 23761-2) 13.7 11.7 -14.4 [facility] HospitalPlatelet Hpusi8454-33-88 06:12:00* Test Item Value Reference Range Interpretation Comments Platelet Count (test code = 777-3) 185 140-360 [facility] HospitalNeutrophils (%) (Auto)2018-11-25 06:12:00 * Test Item Value Reference Range Interpretation Comments Neutrophils (%) (Auto) (test code = 79315-3) 60.5 38.7-80.0 [facility] HospitalLymphocytes (%) (Auto)2018-11-25 06:12:00 * Test Item Value Reference Range Interpretation Comments Lymphocytes (%) (Auto) (test code = 736-9) 24.7 18.0-39.1 [facility] HospitalMonocytes (%) (Auto)2018-11-25 06:12:00* Test Item Value Reference Range Interpretation Comments Monocytes (%) (Auto) (test code = 5905-5) 12.2 4.4-11.3 H [facility] HospitalEosinophils (%) (Auto)2018-11-25 06:12:00 * Test Item Value Reference Range Interpretation Comments Eosinophils (%) (Auto) (test code = 713-8) 2.0 0.0-6.0 [facility] HospitalBasophils (%) (Auto)2018-11-25 06:12:00* Test Item Value Reference Range Interpretation Comments Basophils (%) (Auto) (test code = 706-2) 0.5 0.0-1.0 [facility] HospitalIM GRANULOCYTES %2018-11-25 06:12:00* Test Item Value Reference Range Interpretation Comments IM GRANULOCYTES % (test code = IM GRANULOCYTES %) 0.1 0.0- 1.0 [facility] HospitalNeutrophils # (Auto)2018-11-25 06:12:00* Test Item Value Reference Range Interpretation Comments Neutrophils # (Auto) (test code = 751-8) 6.1 2.1-6.9 [facility] HospitalLymphocytes # (Auto)2018-11-25 06:12:00* Test Item Value Reference Range Interpretation Comments Lymphocytes # (Auto) (test code = 29601-3) 2.5 1.0-3.2 [facility] HospitalMonocytes # (Auto)2018-11-25 06:12:00* Test Item Value Reference Range Interpretation Comments Monocytes # (Auto) (test code = 742-7) 1.2 0.2-0.8 H [facility] HospitalEosinophils # (Auto)2018-11-25 06:12:00* Test Item Value Reference Range Interpretation Comments Eosinophils # (Auto) (test code = 711-2) 0.2 0.0-0.4 [facility] HospitalBasophils # (Auto)2018-11-25 06:12:00* Test Item Value Reference Range Interpretation Comments Basophils # (Auto) (test code = 704-7) 0.1 0.0-0.1 [facility] HospitalAbsolute Immature Granulocyte (auto 2018-11-25 06:12:00* Test Item Value Reference Range Interpretation Comments Absolute Immature Granulocyte (auto (zeenat t code = Absolute Immature Granulocyte (auto) 0.01 0-0.1 [facility] HospitalWhite Blood Dytlz7654-12-32 06:12:00* Test Item Value Reference Range Interpretation Comments White Blood Count (test code = 6690-2) 10.09 4.8-10.8 [facility] HospitalRed Blood Whhza4981-74-25 06:12:00* Test Item Value Reference Range Interpretation Comments Red Blood Count (test code = 789-8) 3.20 4.3-5.7 L [facility] HospitalHemoglobin2019-08-29 06:12:00* Test Item Value Reference Range Interpretation Comments Hemoglobin (test code = 65357-8) 9.0 14.0-18.0 L [facility] HospitalHematocrit2019-08-29 06:12:00* Test Item Value Reference Range Interpretation Comments Hematocrit (test code = 4544-3) 28.1 38.2-49.6 L [facility] HospitalMean Corpuscular Imcyyi6400-66-49 06:12:00* Test Item Value Reference Range Interpretation Comments Mean Corpuscular Volume (test code = 787-2) 87.8 81-99 [facility]Mean Corpuscular Nulqlroldx4024-69-59 06:12:00* Test Item Value Reference Range Interpretation Comments Mean Corpuscular Hemoglobin (test code = 785-6) 28.1 28-32 [facility] HospitalMean Corpuscular Hemoglobin Concent 2018-11-25 06:12:00* Test Item Value Reference Range Interpretation Comments Mean Corpuscular Hemoglobin Concent (test code = 786-4) 32.0 31-35 [facility] HospitalRed Cell Distribution Chxai3795-83-74 06:12:00* Test Item Value Reference Range Interpretation Comments Red Cell Distribution Width (test code = 74903-9) 13.7 11.7 -14.4 [facility] HospitalPlatelet Nkjlv7445-94-23 06:12:00* Test Item Value Reference Range Interpretation Comments Platelet Count (test code = 777-3) 185 140-360 [facility] HospitalNeutrophils (%) (Auto)2018-11-25 06:12:00 * Test Item Value Reference Range Interpretation Comments Neutrophils (%) (Auto) (test code = 94145-6) 60.5 38.7-80.0 [facility] HospitalLymphocytes (%) (Auto)2018-11-25 06:12:00 * Test Item Value Reference Range Interpretation Comments Lymphocytes (%) (Auto) (test code = 736-9) 24.7 18.0-39.1 [facility] HospitalMonocytes (%) (Auto)2018-11-25 06:12:00* Test Item Value Reference Range Interpretation Comments Monocytes (%) (Auto) (test code = 5905-5) 12.2 4.4-11.3 H [facility] HospitalEosinophils (%) (Auto)2018-11-25 06:12:00 * Test Item Value Reference Range Interpretation Comments Eosinophils (%) (Auto) (test code = 713-8) 2.0 0.0-6.0 [facility] HospitalBasophils (%) (Auto)2018-11-25 06:12:00* Test Item Value Reference Range Interpretation Comments Basophils (%) (Auto) (test code = 706-2) 0.5 0.0-1.0 [facility] HospitalIM GRANULOCYTES %2018-11-25 06:12:00* Test Item Value Reference Range Interpretation Comments IM GRANULOCYTES % (test code = IM GRANULOCYTES %) 0.1 0.0- 1.0 [facility] HospitalNeutrophils # (Auto)2018-11-25 06:12:00* Test Item Value Reference Range Interpretation Comments Neutrophils # (Auto) (test code = 751-8) 6.1 2.1-6.9 [facility] HospitalLymphocytes # (Auto)2018-11-25 06:12:00* Test Item Value Reference Range Interpretation Comments Lymphocytes # (Auto) (test code = 26885-6) 2.5 1.0-3.2 [facility] HospitalMonocytes # (Auto)2018-11-25 06:12:00* Test Item Value Reference Range Interpretation Comments Monocytes # (Auto) (test code = 742-7) 1.2 0.2-0.8 H [facility] HospitalEosinophils # (Auto)2018-11-25 06:12:00* Test Item Value Reference Range Interpretation Comments Eosinophils # (Auto) (test code = 711-2) 0.2 0.0-0.4 [facility] HospitalBasophils # (Auto)2018-11-25 06:12:00* Test Item Value Reference Range Interpretation Comments Basophils # (Auto) (test code = 704-7) 0.1 0.0-0.1 [facility] HospitalAbsolute Immature Granulocyte (auto 2018-11-25 06:12:00* Test Item Value Reference Range Interpretation Comments Absolute Immature Granulocyte (auto (zeenat t code = Absolute Immature Granulocyte (auto) 0.01 0-0.1 [facility] HospitalWhite Blood Yvtxh7893-70-80 06:12:00* Test Item Value Reference Range Interpretation Comments White Blood Count (test code = 6690-2) 10.09 4.8-10.8 [facility] HospitalRed Blood Xwsfc7403-95-72 06:12:00* Test Item Value Reference Range Interpretation Comments Red Blood Count (test code = 789-8) 3.20 4.3-5.7 L [facility] HospitalHemoglobin2019-08-29 06:12:00* Test Item Value Reference Range Interpretation Comments Hemoglobin (test code = 06977-6) 9.0 14.0-18.0 L [facility] HospitalHematocrit2019-08-29 06:12:00* Test Item Value Reference Range Interpretation Comments Hematocrit (test code = 4544-3) 28.1 38.2-49.6 L [facility] HospitalMean Corpuscular Umqirr4401-69-94 06:12:00* Test Item Value Reference Range Interpretation Comments Mean Corpuscular Volume (test code = 787-2) 87.8 81-99 [facility]Mean Corpuscular Sqtxnbxkkx2985-38-46 06:12:00* Test Item Value Reference Range Interpretation Comments Mean Corpuscular Hemoglobin (test code = 785-6) 28.1 28-32 [facility] HospitalMean Corpuscular Hemoglobin Concent 2018-11-25 06:12:00* Test Item Value Reference Range Interpretation Comments Mean Corpuscular Hemoglobin Concent (test code = 786-4) 32.0 31-35 [facility] HospitalRed Cell Distribution Qpbrf1980-39-36 06:12:00* Test Item Value Reference Range Interpretation Comments Red Cell Distribution Width (test code = 70934-7) 13.7 11.7 -14.4 [facility] HospitalPlatelet Mcsxn4730-19-26 06:12:00* Test Item Value Reference Range Interpretation Comments Platelet Count (test code = 777-3) 185 140-360 [facility] HospitalNeutrophils (%) (Auto)2018-11-25 06:12:00 * Test Item Value Reference Range Interpretation Comments Neutrophils (%) (Auto) (test code = 98796-9) 60.5 38.7-80.0 [facility] HospitalLymphocytes (%) (Auto)2018-11-25 06:12:00 * Test Item Value Reference Range Interpretation Comments Lymphocytes (%) (Auto) (test code = 736-9) 24.7 18.0-39.1 [facility] HospitalMonocytes (%) (Auto)2018-11-25 06:12:00* Test Item Value Reference Range Interpretation Comments Monocytes (%) (Auto) (test code = 5905-5) 12.2 4.4-11.3 H [facility] HospitalEosinophils (%) (Auto)2018-11-25 06:12:00 * Test Item Value Reference Range Interpretation Comments Eosinophils (%) (Auto) (test code = 713-8) 2.0 0.0-6.0 [facility] HospitalBasophils (%) (Auto)2018-11-25 06:12:00* Test Item Value Reference Range Interpretation Comments Basophils (%) (Auto) (test code = 706-2) 0.5 0.0-1.0 [facility] HospitalIM GRANULOCYTES %2018-11-25 06:12:00* Test Item Value Reference Range Interpretation Comments IM GRANULOCYTES % (test code = IM GRANULOCYTES %) 0.1 0.0- 1.0 [facility] HospitalNeutrophils # (Auto)2018-11-25 06:12:00* Test Item Value Reference Range Interpretation Comments Neutrophils # (Auto) (test code = 751-8) 6.1 2.1-6.9 [facility] HospitalLymphocytes # (Auto)2018-11-25 06:12:00* Test Item Value Reference Range Interpretation Comments Lymphocytes # (Auto) (test code = 05346-2) 2.5 1.0-3.2 [facility] HospitalMonocytes # (Auto)2018-11-25 06:12:00* Test Item Value Reference Range Interpretation Comments Monocytes # (Auto) (test code = 742-7) 1.2 0.2-0.8 H [facility] HospitalEosinophils # (Auto)2018-11-25 06:12:00* Test Item Value Reference Range Interpretation Comments Eosinophils # (Auto) (test code = 711-2) 0.2 0.0-0.4 [facility] HospitalBasophils # (Auto)2018-11-25 06:12:00* Test Item Value Reference Range Interpretation Comments Basophils # (Auto) (test code = 704-7) 0.1 0.0-0.1 [facility] HospitalAbsolute Immature Granulocyte (auto 2018-11-25 06:12:00* Test Item Value Reference Range Interpretation Comments Absolute Immature Granulocyte (auto (zeenat t code = Absolute Immature Granulocyte (auto) 0.01 0-0.1 [facility] Lrnqy3848-39-89 05:57:00* Test Item Value Reference Range Interpretation Comments Sodium Level (test code = 2951-2) 138 136-145 [facility] HospitalPotassium Moowy1346-91-61 05:57:00* Test Item Value Reference Range Interpretation Comments Potassium Level (test code = 2823-3) 3.3 3.5-5.1 L [facility] HospitalChloride Clhtx5446-72-22 05:57:00* Test Item Value Reference Range Interpretation Comments Chloride Level (test code = 2075-0) 105 98-107 [facility] HospitalCarbon Dioxide Vwypn6827-71-83 05:57:00* Test Item Value Reference Range Interpretation Comments Carbon Dioxide Level (test code = 2028-9) 27 - [facility] HospitalAnion Sgi7511-71-31 05:57:00* Test Item Value Reference Range Interpretation Comments Anion Gap (test code = 06375-0) 9.3 8-16 [facility] HospitalBlood Urea Hhnllnsm3328-44-88 05:57:00* Test Item Value Reference Range Interpretation Comments Blood Urea Nitrogen (test code = 3094-0) 15 7-26 [facility] HospitalCreatinine2019-08-29 05:57:00* Test Item Value Reference Range Interpretation Comments Creatinine (test code = 2160-0) 1.17 0.72-1.25 [facility] HospitalBUN/Creatinine Jjpsj4507-32-17 05:57:00* Test Item Value Reference Range Interpretation Comments BUN/Creatinine Ratio (test code = 3097-3) 13 09-21 [facility] HospitalEstimat Glomerular Filtration Rate 2018-11-25 05:57:00* Test Item Value Reference Range Interpretation Comments Estimat Glomerular Filtration Rate (test code = 928294389) > 60 >60 Ranges were taken from the National Kidney Disease Education Program and the [facility] literature.Reference ranges:60 or greater: Gypzid41-09 ( for 3 consecutive months): Chronic kidney disease 15 or less: Kidney failureStephens Memorial HospitalGlucose Jckgx6948-68-76 05:57:00* Test Item Value Reference Range Interpretation Comments Glucose Level (test code = EBT0868) 247 74-118 H [facility] HospitalCalcium Vipib3753-67-30 05:57:00* Test Item Value Reference Range Interpretation Comments Calcium Level (test code = 79741-7) 8.4 8.4-10.2 [facility] Lhrvo6530-30-07 05:57:00* Test Item Value Reference Range Interpretation Comments Sodium Level (test code = 2951-2) 138 136-145 [facility] HospitalPotassium Dwlpc8793-26-52 05:57:00* Test Item Value Reference Range Interpretation Comments Potassium Level (test code = 2823-3) 3.3 3.5-5.1 L [facility] HospitalChloride Fwikt0864-51-93 05:57:00* Test Item Value Reference Range Interpretation Comments Chloride Level (test code = 2075-0) 105 98-107 [facility] HospitalCarbon Dioxide Zcion5641-38-57 05:57:00* Test Item Value Reference Range Interpretation Comments Carbon Dioxide Level (test code = 2028-9) 27 [facility] HospitalAnion Lwb7205-75-74 05:57:00* Test Item Value Reference Range Interpretation Comments Anion Gap (test code = 77105-3) 9.3 8-16 [facility] HospitalBlood Urea Ebtavkrc6533-38-79 05:57:00* Test Item Value Reference Range Interpretation Comments Blood Urea Nitrogen (test code = 3094-0) 15 10-22 [facility] HospitalCreatinine2019-08-29 05:57:00* Test Item Value Reference Range Interpretation Comments Creatinine (test code = 2160-0) 1.17 0.72-1.25 [facility] HospitalBUN/Creatinine Kynrn8687-29-96 05:57:00* Test Item Value Reference Range Interpretation Comments BUN/Creatinine Ratio (test code = 3097-3) 13 09-21 [facility] HospitalEstimat Glomerular Filtration Rate 2018-11-25 05:57:00* Test Item Value Reference Range Interpretation Comments Estimat Glomerular Filtration Rate (test code = 848845327) > 60 >60 Ranges were taken from the National Kidney Disease Education Program and the [facility] literature.Reference ranges:60 or greater: Vgrxqw76-80 ( for 3 consecutive months): Chronic kidney disease 15 or less: Kidney failureStephens Memorial HospitalGlucose Nejid6618-33-83 05:57:00* Test Item Value Reference Range Interpretation Comments Glucose Level (test code = XFZ0159) 247 74-118 H [facility] HospitalCalcium Andhf6562-35-63 05:57:00* Test Item Value Reference Range Interpretation Comments Calcium Level (test code = 17231-4) 8.4 8.4-10.2 [facility] Wbdbf5338-31-50 05:57:00* Test Item Value Reference Range Interpretation Comments Sodium Level (test code = 2951-2) 138 136-145 [facility] HospitalPotassium Fmmas7971-71-77 05:57:00* Test Item Value Reference Range Interpretation Comments Potassium Level (test code = 2823-3) 3.3 3.5-5.1 L [facility] HospitalChloride Pzhfv7128-34-24 05:57:00* Test Item Value Reference Range Interpretation Comments Chloride Level (test code = 2075-0) 105 98-107 [facility] HospitalCarbon Dioxide Bcdlf1082-10-36 05:57:00* Test Item Value Reference Range Interpretation Comments Carbon Dioxide Level (test code = 2028-9) 27 22-29 [facility] HospitalAnion Fby2466-59-49 05:57:00* Test Item Value Reference Range Interpretation Comments Anion Gap (test code = 95070-0) 9.3 8-16 [facility] HospitalBlood Urea Qqlojhha9801-98-75 05:57:00* Test Item Value Reference Range Interpretation Comments Blood Urea Nitrogen (test code = 3094-0) 15 7-26 [facility] HospitalCreatinine2019-08-29 05:57:00* Test Item Value Reference Range Interpretation Comments Creatinine (test code = 2160-0) 1.17 0.72-1.25 [facility] HospitalBUN/Creatinine Fzgti9413-92-89 05:57:00* Test Item Value Reference Range Interpretation Comments BUN/Creatinine Ratio (test code = 3097-3) 13 6-25 [facility] HospitalEstimat Glomerular Filtration Rate 2018-11-25 05:57:00* Test Item Value Reference Range Interpretation Comments Estimat Glomerular Filtration Rate (test code = 235466649) > 60 >60 Ranges were taken from the National Kidney Disease Education Program and the [facility] literature.Reference ranges:60 or greater: Zhovcw22-44 ( for 3 consecutive months): Chronic kidney disease 15 or less: Kidney failureStephens Memorial HospitalGlucose Yhctk8711-43-71 05:57:00* Test Item Value Reference Range Interpretation Comments Glucose Level (test code = ODC4163) 247 74-118 H [facility] HospitalCalcium Qsyfb1332-71-78 05:57:00* Test Item Value Reference Range Interpretation Comments Calcium Level (test code = 60526-0) 8.4 8.4-10.2 [facility] Dryfl7619-02-82 05:57:00* Test Item Value Reference Range Interpretation Comments Sodium Level (test code = 2951-2) 138 136-145 [facility] HospitalPotassium Fquab3410-41-73 05:57:00* Test Item Value Reference Range Interpretation Comments Potassium Level (test code = 2823-3) 3.3 3.5-5.1 L [facility] HospitalChloride Xpsdg0531-59-38 05:57:00* Test Item Value Reference Range Interpretation Comments Chloride Level (test code = 2075-0) 105 98-107 [facility] HospitalCarbon Dioxide Znnpw7178-26-83 05:57:00* Test Item Value Reference Range Interpretation Comments Carbon Dioxide Level (test code = 2028-9) 27 22- [facility] HospitalAnion Xoz8108-16-94 05:57:00* Test Item Value Reference Range Interpretation Comments Anion Gap (test code = 66259-9) 9.3 8-16 [facility] HospitalBlood Urea Pzsjotqp6835-73-28 05:57:00* Test Item Value Reference Range Interpretation Comments Blood Urea Nitrogen (test code = 3094-0) 15 7-26 [facility] HospitalCreatinine2019-08-29 05:57:00* Test Item Value Reference Range Interpretation Comments Creatinine (test code = 2160-0) 1.17 0.72-1.25 [facility] HospitalBUN/Creatinine Vfnge2040-41-78 05:57:00* Test Item Value Reference Range Interpretation Comments BUN/Creatinine Ratio (test code = 3097-3) 13 6- [facility] HospitalEstimat Glomerular Filtration Rate 2018-11-25 05:57:00* Test Item Value Reference Range Interpretation Comments Estimat Glomerular Filtration Rate (test code = 484030141) > 60 >60 Ranges were taken from the National Kidney Disease Education Program and the [facility] literature.Reference ranges:60 or greater: Sqhmdd88-99 ( for 3 consecutive months): Chronic kidney disease 15 or less: Kidney failureStephens Memorial HospitalGlucose Wvyxk2056-70-12 05:57:00* Test Item Value Reference Range Interpretation Comments Glucose Level (test code = IDH1202) 247 74-118 H [facility] HospitalCalcium Atejh8320-62-84 05:57:00* Test Item Value Reference Range Interpretation Comments Calcium Level (test code = 75069-0) 8.4 8.4-10.2 [facility] HospitalBlood Ndvticy2236-03-57 20:52:00* Test Item Value Reference Range Interpretation Comments Blood Culture (test code = 21282270) NO GROWTH AFTER 48 HOURS [facility] HospitalUrine KFX1312-78-94 10:48:00* Test Item Value Reference Range Interpretation Comments Urine WBC (test code = 5821-4) 6-10 0-5 H [facility] HospitalUrine MZM7728-26-42 10:48:00* Test Item Value Reference Range Interpretation Comments Urine RBC (test code = 99678-2) 0-5 0-5 [facility] HospitalUrine Vhjrkmvx2517-88-56 10:48:00* Test Item Value Reference Range Interpretation Comments Urine Bacteria (test code = 22114-5) MODERATE NONE H [facility] HospitalUrine Epithelial Ilvaa4696-23-24 10:48:00 * Test Item Value Reference Range Interpretation Comments Urine Epithelial Cells (test code = 41583-9) FEW NONE [facility] HospitalUrine TEQ4636-23-39 10:48:00* Test Item Value Reference Range Interpretation Comments Urine WBC (test code = 5821-4) 6-10 0-5 H [facility] HospitalUrine CYM1900-53-15 10:48:00* Test Item Value Reference Range Interpretation Comments Urine RBC (test code = 97830-1) 0-5 0-5 [facility] HospitalUrine Hdkfeble5493-17-60 10:48:00* Test Item Value Reference Range Interpretation Comments Urine Bacteria (test code = 62494-4) MODERATE NONE H [facility] HospitalUrine Epithelial Mksek1583-93-48 10:48:00 * Test Item Value Reference Range Interpretation Comments Urine Epithelial Cells (test code = 29684-4) FEW NONE [facility] HospitalUrine HIS3500-24-23 10:48:00* Test Item Value Reference Range Interpretation Comments Urine WBC (test code = 5821-4) 6-10 0-5 H [facility] HospitalUrine IEF3830-93-63 10:48:00* Test Item Value Reference Range Interpretation Comments Urine RBC (test code = 51609-7) 0-5 0-5 [facility] HospitalUrine Hghalssh8744-10-50 10:48:00* Test Item Value Reference Range Interpretation Comments Urine Bacteria (test code = 04628-8) MODERATE NONE H [facility] HospitalUrine Epithelial Igxmy3982-44-47 10:48:00 * Test Item Value Reference Range Interpretation Comments Urine Epithelial Cells (test code = 03219-5) FEW NONE [facility] HospitalUrine OAJ1107-94-81 10:48:00* Test Item Value Reference Range Interpretation Comments Urine WBC (test code = 5821-4) 6-10 0-5 H [facility] HospitalUrine WIC5035-68-27 10:48:00* Test Item Value Reference Range Interpretation Comments Urine RBC (test code = 29765-2) 0-5 0-5 [facility] HospitalUrine Iuiqysbz0625-53-90 10:48:00* Test Item Value Reference Range Interpretation Comments Urine Bacteria (test code = 85416-4) MODERATE NONE H [facility] HospitalUrine Epithelial Xftma2033-21-87 10:48:00 * Test Item Value Reference Range Interpretation Comments Urine Epithelial Cells (test code = 17243-6) FEW NONE [facility] HospitalUrine GXB7462-53-55 10:48:00* Test Item Value Reference Range Interpretation Comments Urine WBC (test code = 5821-4) 6-10 0-5 H [facility] HospitalUrine FVZ6501-93-61 10:48:00* Test Item Value Reference Range Interpretation Comments Urine RBC (test code = 75554-5) 0-5 0-5 [facility] HospitalUrine Csnmhwhe1932-85-04 10:48:00* Test Item Value Reference Range Interpretation Comments Urine Bacteria (test code = 52842-9) MODERATE NONE H [facility] HospitalUrine Epithelial Bslbq6650-42-28 10:48:00 * Test Item Value Reference Range Interpretation Comments Urine Epithelial Cells (test code = 83290-4) FEW NONE [facility] HospitalUrine Kjxuj1884-90-00 10:24:00* Test Item Value Reference Range Interpretation Comments Urine Color (test code = 5778-6) YELLOW YELLOW [facility] HospitalUrine Ranxkke8228-59-44 10:24:00* Test Item Value Reference Range Interpretation Comments Urine Clarity (test code = 09274-4) CLEAR CLEAR [facility] HospitalUrine Specific Gprzmpb6335-18-88 10:24:00 * Test Item Value Reference Range Interpretation Comments Urine Specific [place] (test code = 5811-5) 1.025 1.010-1.02 5 [facility] HospitalUrine nO4614-54-32 10:24:00* Test Item Value Reference Range Interpretation Comments Urine pH (test code = 07582-6) 6 5-7 [facility] HospitalU[facility] Leukocyte Otgyhfwp8265-07-00 10:24:00* Test Item Value Reference Range Interpretation Comments Urine Leukocyte Esterase (test code = 95052-1) NEGATIVE NEGATIV E [facility] HospitalUrine Azjhkqn9979-68-21 10:24:00* Test Item Value Reference Range Interpretation Comments Urine Nitrite (test code = 54241-9) NEGATIVE NEGATIVE [facility] HospitalUrine Mqxiade4354-54-03 10:24:00* Test Item Value Reference Range Interpretation Comments Urine Protein (test code = 48596-8) NEGATIVE [facility]GATIVE [facility])2018-11-24 10:24:00* Test Item Value Reference Range Interpretation Comments Urine Glucose (UA) (test code = 31924-4) NEGATIVE NEGATIVE [facility] Sxpvmzq8851-55-84 10:24:00* Test Item Value Reference Range Interpretation Comments Urine Ketones (test code = 78615-6) 1+ NEGATIVE H [facility] Rowftoajnuod7799-43-81 10:24:00* Test Item Value Reference Range Interpretation Comments Urine Urobilinogen (test code = 34514-8) 0.2 0.2-1 [facility] Siovwhmkb4433-38-19 10:24:00* Test Item Value Reference Range Interpretation Comments Urine Bilirubin (test code = 1977-8) NEGATIVE NEGATIVE [facility] Hnwch6848-07-76 10:24:00* Test Item Value Reference Range Interpretation Comments Urine Blood (test code = 02043-8) NEGATIVE NEGATIVE [facility] Pdtlk5488-51-75 10:24:00* Test Item Value Reference Range Interpretation Comments Urine Color (test code = 5778-6) YELLOW YELLOW [facility] Leguzeo9920-73-29 10:24:00* Test Item Value Reference Range Interpretation Comments Urine Clarity (test code = 43456-3) CLEAR CLEAR [facility] Specific Mokanqc9521-01-17 10:24:00 * Test Item Value Reference Range Interpretation Comments Urine Specific [place] (test code = 5811-5) 1.025 1.010-1.02 5 [facility] iO3083-94-13 10:24:00* Test Item Value Reference Range Interpretation Comments Urine pH (test code = 54233-8) 6 5-7 [facility] Leukocyte Ktlysjbg2109-87-21 10:24:00* Test Item Value Reference Range Interpretation Comments Urine Leukocyte Esterase (test code = 67851-9) NEGATIVE NEGATIV E [facility] Hzdfpgj9744-14-64 10:24:00* Test Item Value Reference Range Interpretation Comments Urine Nitrite (test code = 62570-5) NEGATIVE NEGATIVE [facility] Itcgwgc3528-15-28 10:24:00* Test Item Value Reference Range Interpretation Comments Urine Protein (test code = 05996-2) NEGATIVE NEGATIVE [facility] Glucose (UA)2018-11-24 10:24:00* Test Item Value Reference Range Interpretation Comments Urine Glucose (UA) (test code = 19291-6) NEGATIVE NEGATIVE [facility] Aelwszo7558-95-55 10:24:00* Test Item Value Reference Range Interpretation Comments Urine Ketones (test code = 89347-3) 1+ NEGATIVE H [facility] Nhksqwlqguxa8155-22-62 10:24:00* Test Item Value Reference Range Interpretation Comments Urine Urobilinogen (test code = 99378-6) 0.2 0.2-1 [facility] Tcamhhfcm6717-12-42 10:24:00* Test Item Value Reference Range Interpretation Comments Urine Bilirubin (test code = 1977-8) NEGATIVE NEGATIVE [facility] Xynia3698-96-14 10:24:00* Test Item Value Reference Range Interpretation Comments Urine Blood (test code = 50906-3) NEGATIVE NEGATIVE [facility] Avnpu8314-40-67 10:24:00* Test Item Value Reference Range Interpretation Comments Urine Color (test code = 5778-6) YELLOW YELLOW [facility] Ciwvroa1734-12-06 10:24:00* Test Item Value Reference Range Interpretation Comments Urine Clarity (test code = 94307-0) CLEAR CLEAR [facility] Vfhwljb3566-19-53 10:24:00 * Test Item Value Reference Range Interpretation Comments Urine Specific [place] (test code = 5811-5) 1.025 1.010-1.02 5 [facility] yT5660-35-75 10:24:00* Test Item Value Reference Range Interpretation Comments Urine pH (test code = 53291-4) 6 5-7 [facility] Leukocyte Fdlmrdyu3262-71-33 10:24:00* Test Item Value Reference Range Interpretation Comments Urine Leukocyte Esterase (test code = 61251-2) NEGATIVE NEGATIV E [facility] Seunczd2263-68-21 10:24:00* Test Item Value Reference Range Interpretation Comments Urine Nitrite (test code = 20644-5) NEGATIVE NEGATIVE [facility] Vqbbwup4799-08-16 10:24:00* Test Item Value Reference Range Interpretation Comments Urine Protein (test code = 01707-1) NEGATIVE NEGATIVE [facility] Glucose (UA)2018-11-24 10:24:00* Test Item Value Reference Range Interpretation Comments Urine Glucose (UA) (test code = 83569-2) NEGATIVE NEGATIVE [facility] Lqmeguf2999-30-13 10:24:00* Test Item Value Reference Range Interpretation Comments Urine Ketones (test code = 55892-9) 1+ NEGATIVE H [facility] Keaemtpregec9974-31-32 10:24:00* Test Item Value Reference Range Interpretation Comments Urine Urobilinogen (test code = 52574-0) 0.2 0.2-1 [facility] Mlyvtqdlr9134-50-47 10:24:00* Test Item Value Reference Range Interpretation Comments Urine Bilirubin (test code = 1977-8) NEGATIVE NEGATIVE [facility] Vjmzo8024-89-35 10:24:00* Test Item Value Reference Range Interpretation Comments Urine Blood (test code = 92798-7) NEGATIVE NEGATIVE [facility] Vwbwz5364-19-34 10:24:00* Test Item Value Reference Range Interpretation Comments Urine Color (test code = 5778-6) YELLOW YELLOW [facility] Jjelsup1002-23-23 10:24:00* Test Item Value Reference Range Interpretation Comments Urine Clarity (test code = 50194-1) CLEAR CLEAR [facility] Sxtpwzq1568-47-61 10:24:00 * Test Item Value Reference Range Interpretation Comments Urine Specific [place] (test code = 5811-5) 1.025 1.010-1.02 5 [facility] eV7607-49-28 10:24:00* Test Item Value Reference Range Interpretation Comments Urine pH (test code = 64183-8) 6 5-7 [facility] Leukocyte Xiviidkz9934-96-13 10:24:00* Test Item Value Reference Range Interpretation Comments Urine Leukocyte Esterase (test code = 62742-7) NEGATIVE NEGATIV E [facility] Uqcwxsc8100-00-19 10:24:00* Test Item Value Reference Range Interpretation Comments Urine Nitrite (test code = 50186-5) NEGATIVE NEGATIVE [facility] Kbnzpon1094-75-43 10:24:00* Test Item Value Reference Range Interpretation Comments Urine Protein (test code = 34536-9) NEGATIVE NEGATIVE [facility] Glucose (UA)2018-11-24 10:24:00* Test Item Value Reference Range Interpretation Comments Urine Glucose (UA) (test code = 69859-0) NEGATIVE NEGATIVE [facility] Qpkzpkc9510-24-24 10:24:00* Test Item Value Reference Range Interpretation Comments Urine Ketones (test code = 00243-8) 1+ NEGATIVE H [facility] Gnjvydrkuuel8295-55-27 10:24:00* Test Item Value Reference Range Interpretation Comments Urine Urobilinogen (test code = 01673-1) 0.2 0.2-1 [facility] Qmsmktsot8773-29-73 10:24:00* Test Item Value Reference Range Interpretation Comments Urine Bilirubin (test code = 1977-8) NEGATIVE NEGATIVE [facility] Lxiku8854-33-35 10:24:00* Test Item Value Reference Range Interpretation Comments Urine Blood (test code = 99382-5) NEGATIVE NEGATIVE [facility] Edjxr8791-18-31 10:24:00* Test Item Value Reference Range Interpretation Comments Urine Color (test code = 5778-6) YELLOW YELLOW [facility] Xoqdrrq7701-38-88 10:24:00* Test Item Value Reference Range Interpretation Comments Urine Clarity (test code = 55175-7) CLEAR CLEAR [facility] Specific Bkmwxiu4781-91-28 10:24:00 * Test Item Value Reference Range Interpretation Comments Urine Specific [place] (test code = 5811-5) 1.025 1.010-1.02 5 [facility] rI4594-62-19 10:24:00* Test Item Value Reference Range Interpretation Comments Urine pH (test code = 06191-0) 6 5-7 [facility] Leukocyte Pnwxdaiz3371-28-28 10:24:00* Test Item Value Reference Range Interpretation Comments Urine Leukocyte Esterase (test code = 07273-0) NEGATIVE NEGATIV E [facility] Xgcrstt0396-62-25 10:24:00* Test Item Value Reference Range Interpretation Comments Urine Nitrite (test code = 61523-9) NEGATIVE NEGATIVE [facility] Afvyaxg6201-32-83 10:24:00* Test Item Value Reference Range Interpretation Comments Urine Protein (test code = 37944-1) NEGATIVE NEGATIVE [facility] Glucose (UA)2018-11-24 10:24:00* Test Item Value Reference Range Interpretation Comments Urine Glucose (UA) (test code = 15093-3) NEGATIVE NEGATIVE [facility] Djmmgde6218-65-67 10:24:00* Test Item Value Reference Range Interpretation Comments Urine Ketones (test code = 48521-2) 1+ NEGATIVE H [facility] Vnwoogwhygxa1969-72-95 10:24:00* Test Item Value Reference Range Interpretation Comments Urine Urobilinogen (test code = 48707-4) 0.2 0.2-1 [facility] Fdlgemsnm9940-62-43 10:24:00* Test Item Value Reference Range Interpretation Comments Urine Bilirubin (test code = 1977-8) NEGATIVE NEGATIVE [facility] Comoh2138-07-08 10:24:00* Test Item Value Reference Range Interpretation Comments Urine Blood (test code = 68795-5) NEGATIVE NEGATIVE [facility] color wdytfmhjzwqef9123-23-12 08:40:00* Test Item Value Reference Range Interpretation Comments Urine Color (test code = 5778-6) YELLOW YELLOW [facility] acsczeu6739-32-21 08:40:00* Test Item Value Reference Range Interpretation Comments Urine Clarity (test code = 54035-5) CLEAR CLEAR [facility] by Test strip 2018-11-24 08:40:00* Test Item Value Reference Range Interpretation Comments Urine Specific [place] (test code = 5811-5) 1.025 1.010-1.02 5 [facility] pH measurement by automated test dnqli6748-22-18 08:40:00* Test Item Value Reference Range Interpretation Comments Urine pH (test code = 08608-1) 6 5-7 [facility] leukocyte esterase detection by automated test zwfcf3302-84-01 08:40:00* Test Item Value Reference Range Interpretation Comments Urine Leukocyte Esterase (test code = 89916-3) NEGATIVE NEGATIV E [facility] nitrite detection by automated test wbret6413-15-74 08:40:00* Test Item Value Reference Range Interpretation Comments Urine Nitrite (test code = 88329-2) NEGATIVE NEGATIVE [facility] protein detection by automated test emjto8255-68-60 08:40:00* Test Item Value Reference Range Interpretation Comments Urine Protein (test code = 46456-1) NEGATIVE NEGATIVE [facility] glucose detection by automated test achlg2886-57-16 08:40:00* Test Item Value Reference Range Interpretation Comments Urine Glucose (UA) (test code = 96000-9) NEGATIVE NEGATIVE [facility] ketones detection by automated test yiaub5814-25-57 08:40:00* Test Item Value Reference Range Interpretation Comments Urine Ketones (test code = 76393-3) 1+ NEGATIVE [facility] urobilinogen measurement by test strip (mass/volume)2018-11-24 08:40:00* Test Item Value Reference Range Interpretation Comments Urine Urobilinogen (test code = 28404-3) 0.2 0.2-1 [facility] total bilirubin xbigjfflr3211-74-79 08:40:00* Test Item Value Reference Range Interpretation Comments Urine Bilirubin (test code = 1977-8) NEGATIVE NEGATIVE [facility] erythrocytes bfqphnryu1691-79-53 08:40:00* Test Item Value Reference Range Interpretation Comments Urine Blood (test code = 96151-8) NEGATIVE NEGATIVE [facility] HospitalAutomated urine sediment leukocyte count by microscopy (number/high power field)2018-11-24 08:40:00* Test Item Value Reference Range Interpretation Comments Urine WBC (test code = 5821-4) 6-10 0-5 [facility] HospitalErythrocytes detection in urine sediment by light gigzjudahy6052-65-28 08:40:00* Test Item Value Reference Range Interpretation Comments Urine RBC (test code = 82221-7) 0-5 0-5 [facility] HospitalBacteria detection in urine sediment by light squtvcginv9871-57-32 08:40:00* Test Item Value Reference Range Interpretation Comments Urine Bacteria (test code = 41588-4) MODERATE NONE [facility] HospitalEpithelial cells detection in urine sediment by light tyfbnbwrkw4489-47-54 08:40:00* Test Item Value Reference Range Interpretation Comments Urine Epithelial Cells (test code = 19913-2) FEW NONE [facility] HospitalLipase2019-08-28 03:50:00* Test Item Value Reference Range Interpretation Comments Lipase (test code = 3040-3) < 4 8-78 L [facility] - CBVD7155-51-26 18:41:00 [facility] [address] [address] Patient Name: BREE LINDSAY MR #: [id number] : 1975 Age/Sex: 42/M Req #: [id number] Adm Physician: ISACC JAVED MD Ordered by: NEIL PEREZ MD Report #: [id number] Location: [facility] Room/Bed: [place] [address] Procedure: [id number] HOPD/CXR 1 VEW - HOPD Exam Date: [...] on 11/22/181843 COPY TO: NEIL PEREZ MD PGLASS3797-99-08 11:31:00* Test Item Value Reference Range Interpretation Comments GLUBED (test code = GLUBED) 163 mg/dL 74-106 H Performed by certified award machine operator at [facility] PTLRRJ7354-47-76 05:52:00* Test Item Value Reference Range Interpretation Comments GLUBED (test code = GLUBED) 339 mg/dL 74-106 H Performed by certified award machine operator at [facility] BASIC METABOLIC RRQNF8213-53-24 05:04:00* Test Item Value Reference Range Interpretation [...] code = CA) 8.6 mg/dL 8.5-10.1 N FWPZPKRSTZ5497-41-64 05:04:00* Test Item Value Reference Range Interpretation Comments PHOSPHORUS (test code = PHOS) 2.5 mg/dL 2.5-4.9 N CSAPBMWPR8471-04-61 05:04:00* Test Item Value Reference Range Interpretation Comments MAGNESIUM (test code = MAG) 1.7 mg/dL 1.8-2.4 L CBC W/AUTO MHAH0173-90-65 04:58:00* Test Item Value Reference Range Interpretation [...] (test code = MDIFF) NO BASIC METABOLIC UWAWQ9523-09-58 04:54:00* Test Item Value Reference Range Interpretation [...] CALCIUM (test code = CA) mg/dL 8.5-10.1 WIKOBFLWMT0721-89-35 04:54:00* Test Item Value Reference Range Interpretation Comments PHOSPHORUS (test code = PHOS) mg/dL 2.5-4.9 AHJBVGFSN2168-33-59 04:54:00* Test Item Value Reference Range Interpretation Comments MAGNESIUM (test code = MAG) mg/dL 1.8-2.4 PFUVQP1828-78-95 21:18:00* Test Item Value Reference Range Interpretation Comments GLUBED (test code = GLUBED) 363 mg/dL 74-106 H Performed by certified award machine operator at [facility] XUFS3H4305-41-07 18:20:00* Test Item Value Reference Range Interpretation Comments GLYCOSYLATED HEMOGLOBIN (HA1C) (test code = GLYHGB) 9.0 % HbA1 4. 8-6.0 H ESTIMATED AVERAGE GLUCOSE (test code = EAG) 212 MG/DL SXMMSS2101-36-22 17:42:00* Test Item Value Reference Range Interpretation Comments GLUBED (test code = GLUBED) 216 mg/dL 74-106 H Performed by certified award machine operator at [facility] CEUZPI4458-30-59 13:09:00* Test Item Value Reference Range Interpretation Comments GLUBED (test code = GLUBED) 209 mg/dL 74-106 H Performed by certified award machine operator at [facility] LACTIC RXEL6401-73-37 08:53:00* Test Item Value Reference Range Interpretation [...] taking into account the patients history. PROTHROMBIN JXBM2021-38-43 07:23:00* Test Item Value Reference Range Interpretation [...] (2.5-3.5) IS PATIENT ON ANTICOAGULANTS? NTHROMBOPLASTIN TIME PNJZVXT2566-00-76 07:23:00* Test Item Value Reference Range Interpretation Comments THROMBOPLASTIN TIME PARTIAL (test code = PTT) 26.2 seconds 25.0-36. 5 N IS PATIENT ON ANTICOAGULANTS? NBASIC METABOLIC HAICS6673-61-29 06:41:00* Test Item Value Reference Range Interpretation [...] CA) 9.7 mg/dL 8.5-10.1 N HEPATIC FUNCTION LCAUK2640-67-74 06:41:00* Test Item Value Reference Range Interpretation [...] reference range due to change in reagent. HOIHKO9787-30-26 06:41:00* Test Item Value Reference Range Interpretation Comments LIPASE (test code = LIP) 16 U/L 73.0-393.0 L MNYGFOUZ-T2829-82-03 06:41:00* Test Item Value Reference Range Interpretation Comments TROPONIN-I (test code = TROPI) <0.015 ng/mL 0-0.045 N BASIC METABOLIC RXPLG4473-82-74 06:27:00* Test Item Value Reference Range Interpretation [...] code = CA) mg/dL 8.5-10.1 HEPATIC FUNCTION HNLTE5001-70-00 06:27:00* Test Item Value Reference Range Interpretation [...] TOTAL (test code = ALKP) IUnit/L 45-117 OOTCXI0978-36-67 06:27:00* Test Item Value Reference Range Interpretation Comments LIPASE (test code = LIP) U/L 73.0-393.0 ZFQWXYUF-N5823-22-03 06:27:00* Test Item Value Reference Range Interpretation Comments TROPONIN-I (test code = TROPI) ng/mL 0-0.045 POC LACTIC PXBF2677-41-68 06:23:00* Test Item Value Reference Range Interpretation Comments POC LACTIC ACID (test code = POCLAC) 1.46 MMOL/L 0.4-2.2 N CBC W/O KRVA3817-65-43 06:22:00* Test Item Value Reference Range Interpretation [...] = MPV) 11.6 fL 6.7-11.0 H GASTRIC EOLJMXQS6135-28-95 00:53:[address] [address] Patient Name: BREE LINDSAY MR #: [id number] : 1975 Age/Sex: 42/M Req #: [id number] Adm Physician: Ordered by: TAVIA GARCIA MD Report #: [id number] Location: [place] Room/Bed: Procedure: N M/GASTRIC EMPTYING Exam Date: Exam Time: REPORT STATUS: Signed Solid-phase gastric emptying study Reason for examination: GERD with esophagitis; gastritis The protocol used for this study is based on the Consensus Recommendations fo r Gastric Scintigraphy by the [employer] and the [...] on 09/21/1856 COPY TO: TAVIA GARCIA MD Ylzfjz2180-83-64 15:34:00* Test Item Value Reference Range Interpretation Comments Lipase (test code = 3040-3) < 4 8-78 L [facility]2019-05-14 15:34:00* Test Item Value Reference Range Interpretation Comments Lipase (test code = 3040-3) < 4 8-78 L [facility] HospitalGLUBED2019-05-11 11:39:00* Test Item Value Reference Range Interpretation Comments GLUBED (test code = GLUBED) 102 mg/dL 74-106 N Performed by certified award machine operator at [facility] BASIC METABOLIC LAHHQ0996-29-61 11:27:00* Test Item Value Reference Range Interpretation [...] CA) 8.6 mg/dL 8.5-10.1 N CBC W/AUTO BKTK2604-93-69 11:02:00* Test Item Value Reference Range Interpretation [...] DIFF REQUIRED (test code = MDIFF) NO AKAEZI5138-41-89 07:41:00* Test Item Value Reference Range Interpretation Comments GLUBED (test code = GLUBED) 111 mg/dL 74-106 H Performed by certified award machine operator at [facility] ESHDSG3647-58-23 21:20:00* Test Item Value Reference Range Interpretation Comments GLUBED (test code = GLUBED) 201 mg/dL 74-106 H Performed by certified award machine operator at [facility] RLYANC0773-89-85 16:36:00* Test Item Value Reference Range Interpretation Comments GLUBED (test code = GLUBED) 214 mg/dL 74-106 H Performed by certified award machine operator at [facility] BPOZWZ6634-70-31 12:00:00* Test Item Value Reference Range Interpretation Comments GLUBED (test code = GLUBED) 266 mg/dL 74-106 H Performed by certified award machine operator at [facility] DAPFHJ9593-51-09 07:31:00* Test Item Value Reference Range Interpretation Comments GLUBED (test code = GLUBED) 252 mg/dL 74-106 H Performed by certified award machine operator at [facility] BCVAHC1108-66-27 21:20:00* Test Item Value Reference Range Interpretation Comments GLUBED (test code = GLUBED) 109 mg/dL 74-106 H Performed by certified award machine operator at [facility] ISEJAP9736-92-81 16:47:00* Test Item Value Reference Range Interpretation Comments GLUBED (test code = GLUBED) 328 mg/dL 74-106 H Performed by certified award machine operator at [facility] OSFSGY9179-26-79 11:32:00* Test Item Value Reference Range Interpretation Comments GLUBED (test code = GLUBED) 145 mg/dL 74-106 H Performed by certified award machine operator at [facility] VVEUVY8687-12-82 07:54:00* Test Item Value Reference Range Interpretation Comments GLUBED (test code = GLUBED) 347 mg/dL 74-106 H Performed by certified award machine operator at [facility] CBC W/AUTO BRYG0146-11-14 07:28:00* Test Item Value Reference Range Interpretation [...] (test code = MDIFF) NO BASIC METABOLIC FMXPZ1198-63-65 07:10:00* Test Item Value Reference Range Interpretation [...] CA) 8.8 mg/dL 8.5-10.1 N BASIC METABOLIC XBLKR8748-27-79 06:59:00* Test Item Value Reference Range Interpretation [...] CALCIUM (test code = CA) mg/dL 8.5-10.1 DRIYYR2662-62-66 22:44:00* Test Item Value Reference Range Interpretation Comments GLUBED (test code = GLUBED) 364 mg/dL 74-106 H Performed by certified award machine operator at [facility] BASIC METABOLIC ENVHW3302-80-85 17:43:00* Test Item Value Reference Range Interpretation [...] CA) 9.9 mg/dL 8.5-10.1 N HEPATIC FUNCTION [id number] 17:43:00* Test Item Value Reference Range Interpretation [...] reference range due to change in reagent. [id number] 17:43:00* Test Item Value Reference Range Interpretation Comments LIPASE (test code = LIP) 18 U/L 73.0-393.0 L BASIC METABOLIC CCYPK6952-32-05 17:22:00* Test Item Value Reference Range Interpretation [...] code = CA) mg/dL 8.5-10.1 HEPATIC FUNCTION ZNMNF4085-06-27 17:22:00* Test Item Value Reference Range Interpretation [...] TOTAL (test code = ALKP) IUnit/L 45-117 FWMLQG8600-78-54 17:22:00* Test Item Value Reference Range Interpretation Comments LIPASE (test code = LIP) U/L 73.0-393.0 URINALYSIS OVNZLYRF2235-47-43 17:00:00* Test Item Value Reference Range Interpretation [...] FEW #/LPF FEW Urine Source? Clean CatchURINALYSIS FMUSQSHL1353-41-09 16:55:00* Test Item Value Reference Range Interpretation [...] HPF NONE Urine Source? Clean CatchCBC W/O UXWY2683-01-88 16:40:00* Test Item Value Reference Range Interpretation [...] MPV) 10.7 fL 6.7-11.0 N CBC W/O VIAB8038-06-20 16:37:00* Test Item Value Reference Range Interpretation [...] (test code = MPV) fL 6.7-11.0 Bedside Vgoluvd4546-61-04 08:08:00* Test Item Value Reference Range Interpretation Comments Bedside Glucose (test code = 63656-6) 217 70-120 H Meter ID: [id number]ucose 2018-07-07 08:08:00* Test Item Value Reference Range Interpretation Comments Bedside Glucose (test code = 07046-4) 217 70-120 H Meter ID: [id number] [place] Glucose 2018-07-07 08:08:00* Test Item Value Reference Range Interpretation Comments Bedside Glucose (test code = 03725-5) 217 70-120 H Meter ID: [id number] Memorial HospitalMagnesium Level 2018-07-07 06:31:00* Test Item Value Reference Range Interpretation Comments Magnesium Level (test code = 11824-6) 1.4 1.3-2.1 [facility] HospitalMagnesium Rozef6666-10-12 06:31:00* Test Item Value Reference Range Interpretation Comments Magnesium Level (test code = 83555-1) 1.4 1.3-2.1 [facility] Bwbcj1237-29-31 06:31:00* Test Item Value Reference Range Interpretation Comments Magnesium Level (test code = 93384-0) 1.4 1.3-2.1 [facility] HospitalMaesium Wfced8298-24-26 06:31:00* Test Item Value Reference Range Interpretation Comments Magnesium Level (test code = 41047-5) 1.4 1.3-2.1 [facility] Wablm9530-94-36 06:27:00* Test Item Value Reference Range Interpretation Comments Sodium Level (test code = 2951-2) 137 136-145 [facility] HospitalPotassium Idsst6426-56-08 06:27:00* Test Item Value Reference Range Interpretation Comments Potassium Level (test code = 2823-3) 2.7 3.5-5.1 LL Results repeated and called to [place] at 0624 on 07/07/18 by Lisa henry Read back and verified.[facility] HospitalChloride Level 2018-07-07 06:27:00* Test Item Value Reference Range Interpretation Comments Chloride Level (test code = 2075-0) 96 98-107 L [facility] HospitalCarbon Dioxide Xeymp2796-72-03 06:27:00* Test Item Value Reference Range Interpretation Comments Carbon Dioxide Level (test code = 2028-9) 32 22-29 [facility] HospitalAnion Ttx6872-06-17 06:27:00* Test Item Value Reference Range Interpretation Comments Anion Gap (test code = 77634-4) 11.7 8-16 [facility] HospitalBlood Urea Cgwrskdg0189-03-43 06:27:00* Test Item Value Reference Range Interpretation Comments Blood Urea Nitrogen (test code = 3094-0) 6 7-26 L [facility] HospitalCreatinine2019-04-10 06:27:00* Test Item Value Reference Range Interpretation Comments Creatinine (test code = 2160-0) 0.85 0.72-1.25 [facility] HospitalBUN/Creatinine Phupx6728-42-09 06:27:00* Test Item Value Reference Range Interpretation Comments BUN/Creatinine Ratio (test code = 3097-3) 7 6-25 [facility] HospitalEstimat Glomerular Filtration Rate 2018-07-07 06:27:00* Test Item Value Reference Range Interpretation Comments Estimat Glomerular Filtration Rate (test code = 706770163) > 60 >60 Ranges were taken from the National Kidney Disease Education Program and the [facility] literature.Reference ranges:60 or greater: Gwjevf00-88 ( for 3 consecutive months): Chronic kidney disease 15 or less: Kidney failureStephens Memorial HospitalGlucose Tgsez0840-53-26 06:27:00* Test Item Value Reference Range Interpretation Comments Glucose Level (test code = TOP6831) 136 74-118 H [facility] HospitalCalcium Yhphk6499-51-38 06:27:00* Test Item Value Reference Range Interpretation Comments Calcium Level (test code = 55558-7) 8.4 8.4-10.2 [facility] HospitalTotal Eybutriif1281-10-07 06:27:00* Test Item Value Reference Range Interpretation Comments Total Bilirubin (test code = 1975-2) 0.5 0.2-1.2 [facility] HospitalAspartate Amino Transf (AST/SGOT) 2018-07-07 06:27:00* Test Item Value Reference Range Interpretation Comments Aspartate Amino Transf (AST/SGOT) (test code = Aspartate Amino Transf (AST/SGOT)) 12 5-34 [facility] HospitalAlanine Aminotransferase (ALT/SGPT) 2018-07-07 06:27:00* Test Item Value Reference Range Interpretation Comments Alanine Aminotransferase (ALT/SGPT) (test code = 1742-6) < 6 0-55 [facility] HospitalTotal Hazviqv4274-28-74 06:27:00* Test Item Value Reference Range Interpretation Comments Total Protein (test code = 2885-2) 5.8 6.5-8.1 L [facility] HospitalAlbumin2019-04-10 06:27:00* Test Item Value Reference Range Interpretation Comments Albumin (test code = 1751-7) 3.1 3.5-5.0 L [facility] HospitalGlobulin2019-04-10 06:27:00* Test Item Value Reference Range Interpretation Comments Globulin (test code = 10623-1) 2.7 2.3-3.5 [facility] HospitalAlbumin/Globulin Pijej7389-03-13 06:27:00 * Test Item Value Reference Range Interpretation Comments Albumin/Globulin Ratio (test code = 1759-0) 1.1 0.8-2.0 [facility] HospitalAlkaline Slcfznesrhi8712-04-60 06:27:00* Test Item Value Reference Range Interpretation Comments Alkaline Phosphatase (test code = 6768-6) 68 40-150 [facility] Zsmkb8855-81-29 06:27:00* Test Item Value Reference Range Interpretation Comments Sodium Level (test code = 2951-2) 137 136-145 [facility] HospitalPotassium Yxwry6300-41-92 06:27:00* Test Item Value Reference Range Interpretation Comments Potassium Level (test code = 2823-3) 2.7 3.5-5.1 LL Results repeated and called to [place] at 0624 on 07/07/18 by Lisa henry Read back and verified.[facility] HospitalChloride Level 2018-07-07 06:27:00* Test Item Value Reference Range Interpretation Comments Chloride Level (test code = 2075-0) 96 98-107 L [facility] HospitalCarbon Dioxide Ngdrc0298-53-99 06:27:00* Test Item Value Reference Range Interpretation Comments Carbon Dioxide Level (test code = 2028-9) 32 22-29 H [facility] HospitalAnion Thf8092-52-27 06:27:00* Test Item Value Reference Range Interpretation Comments Anion Gap (test code = 18306-5) 11.7 8-16 [facility] HospitalBlood Urea Mcnngrjc3148-51-50 06:27:00* Test Item Value Reference Range Interpretation Comments Blood Urea Nitrogen (test code = 3094-0) 6 7-26 L [facility] HospitalCreatinine2019-04-10 06:27:00* Test Item Value Reference Range Interpretation Comments Creatinine (test code = 2160-0) 0.85 0.72-1.25 [facility] HospitalBUN/Creatinine Rszsn6050-75-53 06:27:00* Test Item Value Reference Range Interpretation Comments BUN/Creatinine Ratio (test code = 3097-3) 7 6-25 [facility] HospitalEstimat Glomerular Filtration Rate 2018-07-07 06:27:00* Test Item Value Reference Range Interpretation Comments Estimat Glomerular Filtration Rate (test code = 603758937) > 60 >60 Ranges were taken from the National Kidney Disease Education Program and the [facility] literature.Reference ranges:60 or greater: Qzngsu25-51 ( for 3 consecutive months): Chronic kidney disease 15 or less: Kidney failureStephens Memorial HospitalGlucose Zoaws8237-05-79 06:27:00* Test Item Value Reference Range Interpretation Comments Glucose Level (test code = EZE4290) 136 74-118 H [facility] HospitalCalcium Idsyn0268-89-53 06:27:00* Test Item Value Reference Range Interpretation Comments Calcium Level (test code = 58047-9) 8.4 8.4-10.2 [facility] HospitalTotal Bjfovdqxx7203-13-53 06:27:00* Test Item Value Reference Range Interpretation Comments Total Bilirubin (test code = 1975-2) 0.5 0.2-1.2 [facility] HospitalAspartate Amino Transf (AST/SGOT) 2018-07-07 06:27:00* Test Item Value Reference Range Interpretation Comments Aspartate Amino Transf (AST/SGOT) (test code = Aspartate Amino Transf (AST/SGOT)) 12 5-34 [facility] HospitalAlanine Aminotransferase (ALT/SGPT) 2018-07-07 06:27:00* Test Item Value Reference Range Interpretation Comments Alanine Aminotransferase (ALT/SGPT) (test code = 1742-6) < 6 0-55 [facility] HospitalTotal Fhgqcoh3859-03-62 06:27:00* Test Item Value Reference Range Interpretation Comments Total Protein (test code = 2885-2) 5.8 6.5-8.1 L [facility] HospitalAlbumin2019-04-10 06:27:00* Test Item Value Reference Range Interpretation Comments Albumin (test code = 1751-7) 3.1 3.5-5.0 L [facility] HospitalGlobulin2019-04-10 06:27:00* Test Item Value Reference Range Interpretation Comments Globulin (test code = 11474-4) 2.7 2.3-3.5 [facility] HospitalAlbumin/Globulin Mszok2231-92-76 06:27:00 * Test Item Value Reference Range Interpretation Comments Albumin/Globulin Ratio (test code = 1759-0) 1.1 0.8-2.0 [facility] HospitalAlkaline Uberhcsnpus5096-02-56 06:27:00* Test Item Value Reference Range Interpretation Comments Alkaline Phosphatase (test code = 6768-6) 68 40-150 [facility] Svytm1984-80-18 06:27:00* Test Item Value Reference Range Interpretation Comments Sodium Level (test code = 2951-2) 137 136-145 [facility] HospitalPotassium Yjaxe9851-42-97 06:27:00* Test Item Value Reference Range Interpretation Comments Potassium Level (test code = 2823-3) 2.7 3.5-5.1 LL Results repeated and called to [place] at 0624 on 07/07/18 by Lisa henry Read back and verified.[facility] HospitalChloride Level 2018-07-07 06:27:00* Test Item Value Reference Range Interpretation Comments Chloride Level (test code = 2075-0) 96 98-107 L [facility] HospitalCarbon Dioxide Awhsk0135-16-95 06:27:00* Test Item Value Reference Range Interpretation Comments Carbon Dioxide Level (test code = 2028-9) 32 22-29 H [facility] HospitalAnion Jze4393-71-77 06:27:00* Test Item Value Reference Range Interpretation Comments Anion Gap (test code = 89097-2) 11.7 8-16 [facility] HospitalBlood Urea Ojlhdlta4152-34-23 06:27:00* Test Item Value Reference Range Interpretation Comments Blood Urea Nitrogen (test code = 3094-0) 6 7-26 L [facility] HospitalCreatinine2019-04-10 06:27:00* Test Item Value Reference Range Interpretation Comments Creatinine (test code = 2160-0) 0.85 0.72-1.25 [facility] HospitalBUN/Creatinine Ghbog7023-90-74 06:27:00* Test Item Value Reference Range Interpretation Comments BUN/Creatinine Ratio (test code = 3097-3) 7 6-25 [facility] HospitalEstimat Glomerular Filtration Rate 2018-07-07 06:27:00* Test Item Value Reference Range Interpretation Comments Estimat Glomerular Filtration Rate (test code = 930896583) > 60 >60 Ranges were taken from the National Kidney Disease Education Program and the [facility] literature.Reference ranges:60 or greater: Wssrsf37-33 ( for 3 consecutive months): Chronic kidney disease 15 or less: Kidney failureStephens Memorial HospitalGlucose Gelgj1534-38-68 06:27:00* Test Item Value Reference Range Interpretation Comments Glucose Level (test code = FRA8265) 136 74-118 H [facility] HospitalCalcium Aofcf1595-14-97 06:27:00* Test Item Value Reference Range Interpretation Comments Calcium Level (test code = 28207-6) 8.4 8.4-10.2 [facility] HospitalTotal Ivutnwcif4715-89-52 06:27:00* Test Item Value Reference Range Interpretation Comments Total Bilirubin (test code = 1975-2) 0.5 0.2-1.2 [facility] HospitalAspartate Amino Transf (AST/SGOT) 2018-07-07 06:27:00* Test Item Value Reference Range Interpretation Comments Aspartate Amino Transf (AST/SGOT) (test code = Aspartate Amino Transf (AST/SGOT)) [facility] HospitalAlanine Aminotransferase (ALT/SGPT) 2018-07-07 06:27:00* Test Item Value Reference Range Interpretation Comments Alanine Aminotransferase (ALT/SGPT) (test code = 1742-6) < 6 0-55 [facility] HospitalTotal Ogkutya7000-36-05 06:27:00* Test Item Value Reference Range Interpretation Comments Total Protein (test code = 2885-2) 5.8 6.5-8.1 L [facility] HospitalAlbumin2019-04-10 06:27:00* Test Item Value Reference Range Interpretation Comments Albumin (test code = 1751-7) 3.1 3.5-5.0 L [facility] HospitalGlobulin2019-04-10 06:27:00* Test Item Value Reference Range Interpretation Comments Globulin (test code = 99230-2) 2.7 2.3-3.5 [facility] HospitalAlbumin/Globulin Cyyxq4538-99-63 06:27:00 * Test Item Value Reference Range Interpretation Comments Albumin/Globulin Ratio (test code = 1759-0) 1.1 0.8-2.0 [facility] HospitalAlkaline Glbhkfsycvv2021-55-90 06:27:00* Test Item Value Reference Range Interpretation Comments Alkaline Phosphatase (test code = 6768-6) 68 40-150 [facility] HospitalTotal Bcjdiwxyq9543-41-45 06:27:00* Test Item Value Reference Range Interpretation Comments Total Bilirubin (test code = 1975-2) 0.5 0.2-1.2 [facility] HospitalAspartate Amino Transf (AST/SGOT) 2018-07-07 06:27:00* Test Item Value Reference Range Interpretation Comments Aspartate Amino Transf (AST/SGOT) (test code = Aspartate Amino Transf (AST/SGOT)) [facility] HospitalAlanine Aminotransferase (ALT/SGPT) 2018-07-07 06:27:00* Test Item Value Reference Range Interpretation Comments Alanine Aminotransferase (ALT/SGPT) (test code = 1742-6) < 6 0-55 [facility] HospitalTotal Euvckho9995-14-79 06:27:00* Test Item Value Reference Range Interpretation Comments Total Protein (test code = 2885-2) 5.8 6.5-8.1 L [facility] HospitalAlbumin2019-04-10 06:27:00* Test Item Value Reference Range Interpretation Comments Albumin (test code = 1751-7) 3.1 3.5-5.0 L [facility] HospitalGlobulin2019-04-10 06:27:00* Test Item Value Reference Range Interpretation Comments Globulin (test code = 09054-8) 2.7 2.3-3.5 [facility] HospitalAlbumin/Globulin Unnzk4328-46-12 06:27:00 * Test Item Value Reference Range Interpretation Comments Albumin/Globulin Ratio (test code = 1759-0) 1.1 0.8-2.0 [facility] HospitalAlkaline Gkdfvrvvbky3424-65-68 06:27:00* Test Item Value Reference Range Interpretation Comments Alkaline Phosphatase (test code = 6768-6) 68 40-150 [facility] HospitalTotal Vbuutwogm5700-00-33 06:27:00* Test Item Value Reference Range Interpretation Comments Total Bilirubin (test code = 1975-2) 0.5 0.2-1.2 [facility] HospitalAspartate Amino Transf (AST/SGOT) 2018-07-07 06:27:00* Test Item Value Reference Range Interpretation Comments Aspartate Amino Transf (AST/SGOT) (test code = Aspartate Amino Transf (AST/SGOT)) 12 5-34 [facility] HospitalAlanine Aminotransferase (ALT/SGPT) 2018-07-07 06:27:00* Test Item Value Reference Range Interpretation Comments Alanine Aminotransferase (ALT/SGPT) (test code = 1742-6) < 6 0-55 [facility] HospitalTotal Fsufilp0414-80-94 06:27:00* Test Item Value Reference Range Interpretation Comments Total Protein (test code = 2885-2) 5.8 6.5-8.1 L [facility] HospitalAlbumin2019-04-10 06:27:00* Test Item Value Reference Range Interpretation Comments Albumin (test code = 1751-7) 3.1 3.5-5.0 L [facility] HospitalGlobulin2019-04-10 06:27:00* Test Item Value Reference Range Interpretation Comments Globulin (test code = 22324-5) 2.7 2.3-3.5 [facility] HospitalAlbumin/Globulin Muqnp6903-14-05 06:27:00 * Test Item Value Reference Range Interpretation Comments Albumin/Globulin Ratio (test code = 1759-0) 1.1 0.8-2.0 [facility] HospitalAlkaline Bugycjifrso8489-64-66 06:27:00* Test Item Value Reference Range Interpretation Comments Alkaline Phosphatase (test code = 6768-6) 68 40-150 [facility] HospitalTotal Wymuavial0606-37-39 06:27:00* Test Item Value Reference Range Interpretation Comments Total Bilirubin (test code = 1975-2) 0.5 0.2-1.2 [facility] HospitalAspartate Amino Transf (AST/SGOT) 2018-07-07 06:27:00* Test Item Value Reference Range Interpretation Comments Aspartate Amino Transf (AST/SGOT) (test code = Aspartate Amino Transf (AST/SGOT)) 12 5-34 [facility] HospitalAlanine Aminotransferase (ALT/SGPT) 2018-07-07 06:27:00* Test Item Value Reference Range Interpretation Comments Alanine Aminotransferase (ALT/SGPT) (test code = 1742-6) < 6 0-55 [facility] HospitalTotal Gszkatv2923-92-93 06:27:00* Test Item Value Reference Range Interpretation Comments Total Protein (test code = 2885-2) 5.8 6.5-8.1 L [facility] HospitalAlbumin2019-04-10 06:27:00* Test Item Value Reference Range Interpretation Comments Albumin (test code = 1751-7) 3.1 3.5-5.0 L [facility] HospitalGlobulin2019-04-10 06:27:00* Test Item Value Reference Range Interpretation Comments Globulin (test code = 37307-6) 2.7 2.3-3.5 [facility] HospitalAlbumin/Globulin Oakxa9666-80-82 06:27:00 * Test Item Value Reference Range Interpretation Comments Albumin/Globulin Ratio (test code = 1759-0) 1.1 0.8-2.0 [facility] HospitalAlkaline Peqdbaauxtv6589-41-88 06:27:00* Test Item Value Reference Range Interpretation Comments Alkaline Phosphatase (test code = 6768-6) 68 40-150 [facility] HospitalWhite Blood Zzcpu8980-73-00 05:57:00* Test Item Value Reference Range Interpretation Comments White Blood Count (test code = 6690-2) 7.71 4.8-10.8 [facility] HospitalRed Blood Fzapv9564-93-29 05:57:00* Test Item Value Reference Range Interpretation Comments Red Blood Count (test code = 789-8) 3.90 4.3-5.7 L [facility] HospitalHemoglobin2019-04-10 05:57:00* Test Item Value Reference Range Interpretation Comments Hemoglobin (test code = 80576-2) 11.2 14.0-18.0 L [facility] HospitalHematocrit2019-04-10 05:57:00* Test Item Value Reference Range Interpretation Comments Hematocrit (test code = 4544-3) 33.8 38.2-49.6 L [facility] HospitalMean Corpuscular Hmjzym6590-62-73 05:57:00* Test Item Value Reference Range Interpretation Comments Mean Corpuscular Volume (test code = 787-2) 86.7 81-99 [facility] HospitalMean Corpuscular Ribyzwupcf6857-78-27 05:57:00* Test Item Value Reference Range Interpretation Comments Mean Corpuscular Hemoglobin (test code = 785-6) 28.7 28-32 [facility] HospitalMean Corpuscular Hemoglobin Concent 2018-07-07 05:57:00* Test Item Value Reference Range Interpretation Comments Mean Corpuscular Hemoglobin Concent (test code = 786-4) 33.1 31-35 [facility] HospitalRed Cell Distribution Cbfgv8697-77-08 05:57:00* Test Item Value Reference Range Interpretation Comments Red Cell Distribution Width (test code = 15048-1) 13.2 11.7 -14.4 [facility] HospitalPlatelet Nmxgf0706-33-38 05:57:00* Test Item Value Reference Range Interpretation Comments Platelet Count (test code = 777-3) 182 140-360 [facility] HospitalNeutrophils (%) (Auto)2018-07-07 05:57:00 * Test Item Value Reference Range Interpretation Comments Neutrophils (%) (Auto) (test code = 21688-2) 54.0 38.7-80.0 [facility] HospitalLymphocytes (%) (Auto)2018-07-07 05:57:00 * Test Item Value Reference Range Interpretation Comments Lymphocytes (%) (Auto) (test code = 736-9) 20.6 18.0-39.1 [facility] HospitalMonocytes (%) (Auto)2018-07-07 05:57:00* Test Item Value Reference Range Interpretation Comments Monocytes (%) (Auto) (test code = 5905-5) 19.5 4.4-11.3 H [facility] HospitalEosinophils (%) (Auto)2018-07-07 05:57:00 * Test Item Value Reference Range Interpretation Comments Eosinophils (%) (Auto) (test code = 713-8) 5.3 0.0-6.0 [facility] HospitalBasophils (%) (Auto)2018-07-07 05:57:00* Test Item Value Reference Range Interpretation Comments Basophils (%) (Auto) (test code = 706-2) 0.5 0.0-1.0 [facility] HospitalIM GRANULOCYTES %2018-07-07 05:57:00* Test Item Value Reference Range Interpretation Comments IM GRANULOCYTES % (test code = IM GRANULOCYTES %) 0.1 0.0- 1.0 [facility] HospitalNeutrophils # (Auto)2018-07-07 05:57:00* Test Item Value Reference Range Interpretation Comments Neutrophils # (Auto) (test code = 751-8) 4.2 2.1-6.9 [facility] HospitalLymphocytes # (Auto)2018-07-07 05:57:00* Test Item Value Reference Range Interpretation Comments Lymphocytes # (Auto) (test code = 62336-2) 1.6 1.0-3.2 [facility] HospitalMonocytes # (Auto)2018-07-07 05:57:00* Test Item Value Reference Range Interpretation Comments Monocytes # (Auto) (test code = 742-7) 1.5 0.2-0.8 H [facility] HospitalEosinophils # (Auto)2018-07-07 05:57:00* Test Item Value Reference Range Interpretation Comments Eosinophils # (Auto) (test code = 711-2) 0.4 0.0-0.4 [facility] HospitalBasophils # (Auto)2018-07-07 05:57:00* Test Item Value Reference Range Interpretation Comments Basophils # (Auto) (test code = 704-7) 0.0 0.0-0.1 [facility] HospitalAbsolute Immature Granulocyte (auto 2018-07-07 05:57:00* Test Item Value Reference Range Interpretation Comments Absolute Immature Granulocyte (auto (zeenat t code = Absolute Immature Granulocyte (auto) 0.01 0-0.1 [facility] HospitalWhite Blood Wgfuk6475-48-41 05:57:00* Test Item Value Reference Range Interpretation Comments White Blood Count (test code = 6690-2) 7.71 4.8-10.8 [facility] HospitalRed Blood Vowum5314-09-89 05:57:00* Test Item Value Reference Range Interpretation Comments Red Blood Count (test code = 789-8) 3.90 4.3-5.7 L [facility] HospitalHemoglobin2019-04-10 05:57:00* Test Item Value Reference Range Interpretation Comments Hemoglobin (test code = 39388-9) 11.2 14.0-18.0 L [facility] HospitalHematocrit2019-04-10 05:57:00* Test Item Value Reference Range Interpretation Comments Hematocrit (test code = 4544-3) 33.8 38.2-49.6 L [facility] HospitalMean Corpuscular Xctuvm5917-27-67 05:57:00* Test Item Value Reference Range Interpretation Comments Mean Corpuscular Volume (test code = 787-2) 86.7 81-99 [facility] HospitalMean Corpuscular Rcfhiqomuy1994-35-64 05:57:00* Test Item Value Reference Range Interpretation Comments Mean Corpuscular Hemoglobin (test code = 785-6) 28.7 28-32 [facility] HospitalMean Corpuscular Hemoglobin Concent 2018-07-07 05:57:00* Test Item Value Reference Range Interpretation Comments Mean Corpuscular Hemoglobin Concent (test code = 786-4) 33.1 31-35 [facility] HospitalRed Cell Distribution Hfbhf0803-02-10 05:57:00* Test Item Value Reference Range Interpretation Comments Red Cell Distribution Width (test code = 54374-3) 13.2 11.7 -14.4 [facility] HospitalPlatelet Kocbo0269-74-28 05:57:00* Test Item Value Reference Range Interpretation Comments Platelet Count (test code = 777-3) 182 140-360 [facility] HospitalNeutrophils (%) (Auto)2018-07-07 05:57:00 * Test Item Value Reference Range Interpretation Comments Neutrophils (%) (Auto) (test code = 48390-7) 54.0 38.7-80.0 [facility] HospitalLymphocytes (%) (Auto)2018-07-07 05:57:00 * Test Item Value Reference Range Interpretation Comments Lymphocytes (%) (Auto) (test code = 736-9) 20.6 18.0-39.1 [facility] HospitalMonocytes (%) (Auto)2018-07-07 05:57:00* Test Item Value Reference Range Interpretation Comments Monocytes (%) (Auto) (test code = 5905-5) 19.5 4.4-11.3 H [facility] HospitalEosinophils (%) (Auto)2018-07-07 05:57:00 * Test Item Value Reference Range Interpretation Comments Eosinophils (%) (Auto) (test code = 713-8) 5.3 0.0-6.0 [facility] HospitalBasophils (%) (Auto)2018-07-07 05:57:00* Test Item Value Reference Range Interpretation Comments Basophils (%) (Auto) (test code = 706-2) 0.5 0.0-1.0 [facility] HospitalIM GRANULOCYTES %2018-07-07 05:57:00* Test Item Value Reference Range Interpretation Comments IM GRANULOCYTES % (test code = IM GRANULOCYTES %) 0.1 0.0- 1.0 [facility] HospitalNeutrophils # (Auto)2018-07-07 05:57:00* Test Item Value Reference Range Interpretation Comments Neutrophils # (Auto) (test code = 751-8) 4.2 2.1-6.9 [facility] HospitalLymphocytes # (Auto)2018-07-07 05:57:00* Test Item Value Reference Range Interpretation Comments Lymphocytes # (Auto) (test code = 78808-3) 1.6 1.0-3.2 [facility] HospitalMonocytes # (Auto)2018-07-07 05:57:00* Test Item Value Reference Range Interpretation Comments Monocytes # (Auto) (test code = 742-7) 1.5 0.2-0.8 H [facility] HospitalEosinophils # (Auto)2018-07-07 05:57:00* Test Item Value Reference Range Interpretation Comments Eosinophils # (Auto) (test code = 711-2) 0.4 0.0-0.4 [facility] HospitalBasophils # (Auto)2018-07-07 05:57:00* Test Item Value Reference Range Interpretation Comments Basophils # (Auto) (test code = 704-7) 0.0 0.0-0.1 [facility] HospitalAbsolute Immature Granulocyte (auto 2018-07-07 05:57:00* Test Item Value Reference Range Interpretation Comments Absolute Immature Granulocyte (auto (zeenat t code = Absolute Immature Granulocyte (auto) 0.01 0-0.1 [facility] HospitalWhite Blood Fdxel9895-84-62 05:57:00* Test Item Value Reference Range Interpretation Comments White Blood Count (test code = 6690-2) 7.71 4.8-10.8 [facility] HospitalRed Blood Hbsfr4659-17-70 05:57:00* Test Item Value Reference Range Interpretation Comments Red Blood Count (test code = 789-8) 3.90 4.3-5.7 L [facility] HospitalHemoglobin2019-04-10 05:57:00* Test Item Value Reference Range Interpretation Comments Hemoglobin (test code = 90190-0) 11.2 14.0-18.0 L [facility] HospitalHematocrit2019-04-10 05:57:00* Test Item Value Reference Range Interpretation Comments Hematocrit (test code = 4544-3) 33.8 38.2-49.6 L [facility] HospitalMean Corpuscular Dntior4834-67-27 05:57:00* Test Item Value Reference Range Interpretation Comments Mean Corpuscular Volume (test code = 787-2) 86.7 81-99 [facility] HospitalMean Corpuscular Iebjcnhhid0820-79-57 05:57:00* Test Item Value Reference Range Interpretation Comments Mean Corpuscular Hemoglobin (test code = 785-6) 28.7 28-32 [facility] HospitalMean Corpuscular Hemoglobin Concent 2018-07-07 05:57:00* Test Item Value Reference Range Interpretation Comments Mean Corpuscular Hemoglobin Concent (test code = 786-4) 33.1 31-35 [facility] HospitalRed Cell Distribution Pcsan9683-93-98 05:57:00* Test Item Value Reference Range Interpretation Comments Red Cell Distribution Width (test code = 67329-8) 13.2 11.7 -14.4 [facility] HospitalPlatelet Ppjoo6811-59-41 05:57:00* Test Item Value Reference Range Interpretation Comments Platelet Count (test code = 777-3) 182 140-360 [facility] HospitalNeutrophils (%) (Auto)2018-07-07 05:57:00 * Test Item Value Reference Range Interpretation Comments Neutrophils (%) (Auto) (test code = 71842-6) 54.0 38.7-80.0 [facility] (Auto)2018-07-07 05:57:00 * Test Item Value Reference Range Interpretation Comments Lymphocytes (%) (Auto) (test code = 736-9) 20.6 18.0-39.1 [facility]Mon[facility] (%) (Auto)2018-07-07 05:57:00* Test Item Value Reference Range Interpretation Comments Monocytes (%) (Auto) (test code = 5905-5) 19.5 4.4-11.3 H [facility]ophils (%) (Auto)2018-07-07 05:57:00 * Test Item Value Reference Range Interpretation Comments Eosinophils (%) (Auto) (test code = 713-8) 5.3 0.0-6.0 [facility] (%) (Auto)2018-07-07 05:57:00* Test Item Value Reference Range Interpretation Comments Basophils (%) (Auto) (test code = 706-2) 0.5 0.0-1.0 [facility]IM [facility]ULOCYTES %2018-07-07 05:57:00* Test Item Value Reference Range Interpretation Comments IM GRANULOCYTES % (test code = IM GRANULOCYTES %) 0.1 0.0- 1.0 [facility] HospitalNeutrophils # (Auto)2018-07-07 05:57:00* Test Item Value Reference Range Interpretation Comments Neutrophils # (Auto) (test code = 751-8) 4.2 2.1-6.9 [facility] HospitalLymphocytes # (Auto)2018-07-07 05:57:00* Test Item Value Reference Range Interpretation Comments Lymphocytes # (Auto) (test code = 55289-0) 1.6 1.0-3.2 [facility]Monocytes # (Auto)2018-07-07 05:57:00* Test Item Value Reference Range Interpretation Comments Monocytes # (Auto) (test code = 742-7) 1.5 0.2-0.8 H [facility] HospitalEosinophils # (Auto)2018-07-07 05:57:00* Test Item Value Reference Range Interpretation Comments Eosinophils # (Auto) (test code = 711-2) 0.4 0.0-0.4 [facility] HospitalBasophils # (Auto)2018-07-07 05:57:00* Test Item Value Reference Range Interpretation Comments Basophils # (Auto) (test code = 704-7) 0.0 0.0-0.1 [facility] HospitalAbsolute Immature Granulocyte (auto 2018-07-07 05:57:00* Test Item Value Reference Range Interpretation Comments Absolute Immature Granulocyte (auto (zeenat t code = Absolute Immature Granulocyte (auto) 0.01 0-0.1 [facility] HospitalAmylase [id number] 04:08:00* Test Item Value Reference Range Interpretation Comments Amylase Level (test code = 1798-8) 48 25-125 [facility] HospitalLipase2019-04-05 04:08:00* Test Item Value Reference Range Interpretation Comments Lipase (test code = 3040-3) < 4 8-78 L [facility]Am[facility] Cmjed0008-45-21 04:08:00* Test Item Value Reference Range Interpretation Comments Amylase Level (test code = 1798-8) 48 25-125 [facility] HospitalAm[facility] Gsakx2185-57-22 04:08:00* Test Item Value Reference Range Interpretation Comments Amylase Level (test code = 1798-8) 48 25-125 [facility] HospitalAm[facility] Uvcoc0839-44-32 04:08:00* Test Item Value Reference Range Interpretation Comments Amylase Level (test code = 1798-8) 48 25-125 [facility] HospitalAmylase Siehr1415-76-42 04:08:00* Test Item Value Reference Range Interpretation Comments Amylase Level (test code = 1798-8) 48 25-125 [facility] HospitalAm[facility] Rmgbr6347-19-71 04:08:00* Test Item Value Reference Range Interpretation Comments Amylase Level (test code = 1798-8) 48 25-125 [facility] HospitalUrine PCW7602-55-01 01:56:00* Test Item Value Reference Range Interpretation Comments Urine WBC (test code = 5821-4) 0-5 0-5 [facility] LHG3905-73-41 01:56:00* Test Item Value Reference Range Interpretation Comments Urine RBC (test code = 35012-9) 0-5 0-5 [facility] Vesvwjbs1353-75-50 01:56:00* Test Item Value Reference Range Interpretation Comments Urine Bacteria (test code = 09150-5) FEW NONE [facility] HospitalU[facility] Epithelial Iizmk8706-66-94 01:56:00 * Test Item Value Reference Range Interpretation Comments Urine Epithelial Cells (test code = 15992-2) FEW NONE [facility] Kmeyt9936-28-11 01:56:00* Test Item Value Reference Range Interpretation Comments Urine Mucus (test code = 8247-9) FEW RARE H [facility] HospitalU[facility] YBW1342-65-94 01:56:00* Test Item Value Reference Range Interpretation Comments Urine WBC (test code = 5821-4) 0-5 0-5 [facility] LMK8689-59-57 01:56:00* Test Item Value Reference Range Interpretation Comments Urine RBC (test code = 71659-7) 0-5 0-5 [facility] Yzqvtuvk2167-97-63 01:56:00* Test Item Value Reference Range Interpretation Comments Urine Bacteria (test code = 46318-0) FEW NONE [facility] Epithelial Wogbf9948-96-58 01:56:00 * Test Item Value Reference Range Interpretation Comments Urine Epithelial Cells (test code = 15346-6) FEW NONE [facility] Jfutp4674-25-32 01:56:00* Test Item Value Reference Range Interpretation Comments Urine Mucus (test code = 8247-9) FEW RARE H [facility] [place] QGY3190-95-04 01:56:00* Test Item Value Reference Range Interpretation Comments Urine WBC (test code = 5821-4) 0-5 0-5 [facility] FZN5184-13-25 01:56:00* Test Item Value Reference Range Interpretation Comments Urine RBC (test code = 89155-8) 0-5 0-5 [facility] Enkondor4289-19-35 01:56:00* Test Item Value Reference Range Interpretation Comments Urine Bacteria (test code = 63385-2) FEW NONE [facility] Epithelial Dhzxg7692-36-24 01:56:00 * Test Item Value Reference Range Interpretation Comments Urine Epithelial Cells (test code = 81278-4) FEW NONE [facility] Kvwot4105-56-49 01:56:00* Test Item Value Reference Range Interpretation Comments Urine Mucus (test code = 8247-9) FEW RARE H [facility] Yeuxe1744-93-60 01:56:00* Test Item Value Reference Range Interpretation Comments Urine Mucus (test code = 8247-9) FEW RARE H [facility] Fmwno0977-84-23 01:56:00* Test Item Value Reference Range Interpretation Comments Urine Mucus (test code = 8247-9) FEW RARE H [facility] Rghjs6345-82-56 01:56:00* Test Item Value Reference Range Interpretation Comments Urine Mucus (test code = 8247-9) FEW RARE H [facility] Ifiec1704-30-19 01:47:00* Test Item Value Reference Range Interpretation Comments Urine Color (test code = 5778-6) YELLOW YELLOW [facility] Vrekdgm5649-01-50 01:47:00* Test Item Value Reference Range Interpretation Comments Urine Clarity (test code = 22463-3) CLEAR CLEAR [facility] Specific Fktgotx7698-86-18 01:47:00 * Test Item Value Reference Range Interpretation Comments Urine Specific [place] (test code = 5811-5) 1.020 1.010-1.02 5 [facility] tZ5907-88-83 01:47:00* Test Item Value Reference Range Interpretation Comments Urine pH (test code = 31834-4) 8 5-7 H [facility] Leukocyte Wpbhrynu8750-28-66 01:47:00* Test Item Value Reference Range Interpretation Comments Urine Leukocyte Esterase (test code = 5799-2) NEGATIVE NEGATIVE [facility] Ywzblmf4668-26-55 01:47:00* Test Item Value Reference Range Interpretation Comments Urine Nitrite (test code = 54354-9) NEGATIVE NEGATIVE [facility] Wjtklse0289-58-38 01:47:00* Test Item Value Reference Range Interpretation Comments Urine Protein (test code = 5804-0) 1+ NEGATIVE H [facility] Glucose (UA)2018-07-02 01:47:00* Test Item Value Reference Range Interpretation Comments Urine Glucose (UA) (test code = 2349-9) NEGATIVE NEGATIVE [facility] Vcgtugm4426-76-46 01:47:00* Test Item Value Reference Range Interpretation Comments Urine Ketones (test code = 66322-2) 2+ NEGATIVE H [facility] Ykzwugngnprn8026-02-79 01:47:00* Test Item Value Reference Range Interpretation Comments Urine Urobilinogen (test code = 82418-7) 0.2 0.2-1 [facility] Dpmclxetz1435-23-37 01:47:00* Test Item Value Reference Range Interpretation Comments Urine Bilirubin (test code = 1978-6) 1+ NEGATIVE H Confirmatory test currently unavailable. False positive results may occur.[facility] Mlrls7988-25-63 01:47:00* Test Item Value Reference Range Interpretation Comments Urine Blood (test code = 02427-9) NEGATIVE NEGATIVE [facility] Wncfi5666-00-80 01:47:00* Test Item Value Reference Range Interpretation Comments Urine Color (test code = 5778-6) YELLOW YELLOW [facility] Fgpqszy4599-18-73 01:47:00* Test Item Value Reference Range Interpretation Comments Urine Clarity (test code = 20946-6) CLEAR CLEAR [facility] Specific Wnelxer5518-85-32 01:47:00 * Test Item Value Reference Range Interpretation Comments Urine Specific [place] (test code = 5811-5) 1.020 1.010-1.02 5 [facility] uN5294-17-65 01:47:00* Test Item Value Reference Range Interpretation Comments Urine pH (test code = 38075-5) 8 5-7 H [facility] Leukocyte Pshbxrtl3499-60-26 01:47:00* Test Item Value Reference Range Interpretation Comments Urine Leukocyte Esterase (test code = 5799-2) NEGATIVE NEGATIVE [facility] Kcniaam2444-49-59 01:47:00* Test Item Value Reference Range Interpretation Comments Urine Nitrite (test code = 90405-0) NEGATIVE NEGATIVE [facility] Dynynpo3226-69-02 01:47:00* Test Item Value Reference Range Interpretation Comments Urine Protein (test code = 5804-0) 1+ NEGATIVE H [facility] Glucose (UA)2018-07-02 01:47:00* Test Item Value Reference Range Interpretation Comments Urine Glucose (UA) (test code = 2349-9) NEGATIVE NEGATIVE [facility] Ifmavzu1444-73-50 01:47:00* Test Item Value Reference Range Interpretation Comments Urine Ketones (test code = 77719-9) 2+ NEGATIVE H [facility] Hddziztdqosg4322-60-38 01:47:00* Test Item Value Reference Range Interpretation Comments Urine Urobilinogen (test code = 90893-3) 0.2 0.2-1 [facility] Dxixbtkwz6708-16-26 01:47:00* Test Item Value Reference Range Interpretation Comments Urine Bilirubin (test code = 1978-6) 1+ NEGATIVE H Confirmatory test currently unavailable. False positive results may occur.[facility] Fesux3697-44-48 01:47:00* Test Item Value Reference Range Interpretation Comments Urine Blood (test code = 56071-9) NEGATIVE NEGATIVE [facility] Frbks7644-63-90 01:47:00* Test Item Value Reference Range Interpretation Comments Urine Color (test code = 5778-6) YELLOW YELLOW [facility] Kykhjus5136-66-12 01:47:00* Test Item Value Reference Range Interpretation Comments Urine Clarity (test code = 52264-9) CLEAR CLEAR [facility] Specific Rtmxymd9392-71-77 01:47:00 * Test Item Value Reference Range Interpretation Comments Urine Specific [place] (test code = 5811-5) 1.020 1.010-1.02 5 [facility] xJ7140-01-68 01:47:00* Test Item Value Reference Range Interpretation Comments Urine pH (test code = 36420-6) 8 5-7 H [facility] Leukocyte Gtbdwadz0159-97-05 01:47:00* Test Item Value Reference Range Interpretation Comments Urine Leukocyte Esterase (test code = 5799-2) NEGATIVE NEGATIVE [facility] Hkkpbcu4142-30-80 01:47:00* Test Item Value Reference Range Interpretation Comments Urine Nitrite (test code = 85362-3) NEGATIVE NEGATIVE [facility] Nrguehx7245-79-02 01:47:00* Test Item Value Reference Range Interpretation Comments Urine Protein (test code = 5804-0) 1+ NEGATIVE H [facility] Glucose (UA)2018-07-02 01:47:00* Test Item Value Reference Range Interpretation Comments Urine Glucose (UA) (test code = 2349-9) NEGATIVE NEGATIVE [facility] Azuhudx0342-08-18 01:47:00* Test Item Value Reference Range Interpretation Comments Urine Ketones (test code = 56291-6) 2+ NEGATIVE H [facility] Otrpqmnvkoqe6793-50-62 01:47:00* Test Item Value Reference Range Interpretation Comments Urine Urobilinogen (test code = 25579-8) 0.2 0.2-1 [facility] Lwtsabqqa4289-37-66 01:47:00* Test Item Value Reference Range Interpretation Comments Urine Bilirubin (test code = 1978-6) 1+ NEGATIVE H Confirmatory test currently unavailable. False positive results may occur.[facility] Lpugv1800-05-60 01:47:00* Test Item Value Reference Range Interpretation Comments Urine Blood (test code = 04034-6) NEGATIVE NEGATIVE [facility] TGIMNHSM2615-93-07 10:20:00 [facility] [address] [address] Patient Name: BREE LINDSAY MR #: [id number] : [id number] Age/Sex: 42/M Req #: [id number] Adm Physician: Ordered by: TAVIA GARCIA MD Report #: [id number] Location: US Room/Bed: Procedure: [id number] U S/US ABDOMEN COMPLETE Exam Date: Exam [...] 102 3 COPY TO: TAVIA GARCIA MD MFWYZF7354-62-84 05:55:00* Test Item Value Reference Range Interpretation Comments GLUBED (test code = GLUBED) 195 mg/dL 74-106 H Performed by certified award machine operator at [facility] PDUURS6040-62-46 17:33:00* Test Item Value Reference Range Interpretation Comments GLUBED (test code = GLUBED) 151 mg/dL 74-106 H Performed by certified award machine operator at [facility] BASIC METABOLIC MCPCH0989-63-43 15:46:00* Test Item Value Reference Range Interpretation [...] code = CA) 7.7 mg/dL 8.5-10.1 L [id number] 12:16:00* Test Item Value Reference Range Interpretation Comments GLUBED (test code = GLUBED) 136 mg/dL 74-106 H Performed by certified award machine operator at [facility] DQPTUI8025-89-95 07:53:00* Test Item Value Reference Range Interpretation Comments GLUBED (test code = GLUBED) 129 mg/dL 74-106 H Performed by certified award machine operator at [facility] COMPREHENSIVE METABOLIC DHEJL2123-32-87 06:41:00* Test Item Value Reference Range Interpretation Comments SODIUM (test code = NA) 139 mmol/L 136-145 N POTASSIUM (test code = K) 2.7 mmol/L 3.5-5.1 Re sults called to [id number] by [email or web address] 05/16/18 0636Critical results verified and read back [...] due to change in reagent. CBC W/AUTO UQJZ8890-06-12 05:31:00* Test Item Value Reference Range Interpretation [...] code = NRBC#) 0.00 K/mm3 0.0-0.1 N DJLOZG5622-61-11 20:43:00* Test Item Value Reference Range Interpretation Comments GLUBED (test code = GLUBED) 122 mg/dL 74-106 H Performed by certified award machine operator at [facility] AKALCP3729-36-71 17:15:00* Test Item Value Reference Range Interpretation Comments GLUBED (test code = GLUBED) 145 mg/dL 74-106 H Performed by certified award machine operator at [facility] KAOOMZ2978-87-89 11:46:00* Test Item Value Reference Range Interpretation Comments GLUBED (test code = GLUBED) 228 mg/dL 74-106 H Performed by certified award machine operator at [facility] HWDTYA1476-85-96 07:49:00* Test Item Value Reference Range Interpretation Comments GLUBED (test code = GLUBED) 123 mg/dL 74-106 H Performed by certified award machine operator at [facility] COMPREHENSIVE METABOLIC TLHUF2071-49-29 07:19:00* Test Item Value Reference Range Interpretation Comments SODIUM (test code = NA) 140 mmol/L 136-145 N POTASSIUM (test code = K) 2.9 mmol/L 3.5-5.1 L Re sults called to [id number] by [email or web address] 05/15/18 0716Critical results verified and [...] due to change in reagent. CBC W/AUTO PAKE2596-34-62 06:20:00* Test Item Value Reference Range Interpretation [...] code = NRBC#) 0.00 K/mm3 0.0-0.1 N [id number] 21:14:00* Test Item Value Reference Range Interpretation Comments GLUBED (test code = GLUBED) 152 mg/dL 74-106 H Performed by certified award machine operator at [facility] YYGPZZ1772-02-19 17:16:00* Test Item Value Reference Range Interpretation Comments GLUBED (test code = GLUBED) 140 mg/dL 74-106 H Performed by certified award machine operator at [facility] ARCSBO9107-31-17 11:55:00* Test Item Value Reference Range Interpretation Comments GLUBED (test code = GLUBED) 236 mg/dL 74-106 H Performed by certified award machine operator at [facility] COMPREHENSIVE METABOLIC [id number] 08:50:00* Test Item Value Reference Range Interpretation [...] due to change in reagent. COMPREHENSIVE METABOLIC SUAUV2610-30-50 08:38:00* Test Item Value Reference Range Interpretation [...] code = ALKP) IUnit/L 45-117 CBC W/AUTO [id number] 08:00:00* Test Item Value Reference Range Interpretation [...] DIFF REQUIRED (test code = MDIFF) NO [id number] 07:51:00* Test Item Value Reference Range Interpretation Comments GLUBED (test code = GLUBED) 210 mg/dL 74-106 H Performed by certified award machine operator at [facility] AXYVBS7870-65-61 20:06:00* Test Item Value Reference Range Interpretation Comments GLUBED (test code = GLUBED) 278 mg/dL 74-106 H Performed by certified award machine operator at [facility] [id number] 16:53:00* Test Item Value Reference Range Interpretation Comments GLUBED (test code = GLUBED) 236 mg/dL 74-106 H Performed by certified award machine operator at [facility] [id number] 11:31:00* Test Item Value Reference Range Interpretation Comments GLUBED (test code = GLUBED) 269 mg/dL 74-106 H Performed by certified award machine operator at [facility] ZMDVTA9585-28-69 10:39:00* Test Item Value Reference Range Interpretation Comments GLUBED (test code = GLUBED) 298 mg/dL 74-106 H Performed by certified award machine operator at [facility] COMPREHENSIVE METABOLIC [id number] 06:29:00* Test Item Value Reference Range Interpretation [...] due to change in reagent. COMPREHENSIVE METABOLIC [id number] 06:10:00* Test Item Value Reference Range Interpretation [...] code = ALKP) IUnit/L 45-117 CBC W/AUTO [id number] 05:48:00* Test Item Value Reference Range Interpretation [...] DIFF REQUIRED (test code = MDIFF) NO [id number] 20:52:00* Test Item Value Reference Range Interpretation Comments GLUBED (test code = GLUBED) 238 mg/dL 74-106 H Performed by certified award machine operator at [facility] [id number] 15:54:00* Test Item Value Reference Range Interpretation Comments GLUBED (test code = GLUBED) 199 mg/dL 74-106 H Performed by certified award machine operator at [facility] [id number] 11:51:00* Test Item Value Reference Range Interpretation Comments GLUBED (test code = GLUBED) 265 mg/dL 74-106 H Performed by certified award machine operator at [facility] [id number] 08:20:00* Test Item Value Reference Range Interpretation Comments GLYCOSYLATED HEMOGLOBIN (HA1C) (test code = GLYHGB) 10.6 % HbA1 4. 8-6.0 H ESTIMATED AVERAGE GLUCOSE (test code = EAG) 258 MG/DL COMPREHENSIVE METABOLIC [id number] 08:11:00* Test Item Value Reference Range Interpretation [...] result is a direct measurement.========= THYROID STIMULATING [id number] 08:11:00* Test Item Value Reference Range Interpretation Comments THYROID STIMULATING HORMONE (test code = TSH) 1.020 uIU/mL 0.36-3.7 4 N TSH REFERENCE RANGES: EUTHYROID: 0.35 - 4.3 mIU/mL HYPO : > 5.5 mIU/mL HYPER : < 0.35 mIU/mL COMPREHENSIVE METABOLIC [id number] 07:53:00* Test Item Value Reference Range Interpretation [...] code = LDL) mg/dL 100-129 THYROID STIMULATING [id number] 07:53:00* Test Item Value Reference Range Interpretation Comments THYROID STIMULATING HORMONE (test code = TSH) uIU/mL 0.36-3.7 4 CBC W/AUTO [id number] 07:51:00* Test Item Value Reference Range Interpretation [...] DIFF REQUIRED (test code = MDIFF) NO [id number] 07:10:00* Test Item Value Reference Range Interpretation Comments GLUBED (test code = GLUBED) 350 mg/dL 74-106 H Performed by certified award machine operator at [facility] DRUGS OF ABUSE SCREEN [id number] 06:10:00* Test Item Value Reference Range Interpretation [...] code = [place]) NEGATIVE <300 ng/mL URINALYSIS [id number] 05:29:00* Test Item Value Reference Range Interpretation [...] Urine Source? Clean CatchDRUGS OF ABUSE SCREEN [id number] 05:12:00* Test Item Value Reference Range Interpretation [...] METHADONE (test code = [place]) <300 ng/mL [id number] 20:26:00* Test Item Value Reference Range Interpretation Comments GLUBED (test code = GLUBED) 285 mg/dL 74-106 H Performed by certified award machine operator at [facility] [id number] 13:32:00* Test Item Value Reference Range Interpretation Comments GLUBED (test code = GLUBED) 159 mg/dL 74-106 H Performed by certified award machine operator at [facility] BASIC METABOLIC [id number] 09:38:00* Test Item Value Reference Range Interpretation [...] CA) 8.9 mg/dL 8.5-10.1 N HEPATIC FUNCTION [id number] 09:38:00* Test Item Value Reference Range Interpretation [...] reference range due to change in reagent. [id number] 09:38:00* Test Item Value Reference Range Interpretation Comments LIPASE (test code = LIP) 20 U/L 73.0-393.0 L BASIC METABOLIC [id number] 09:30:00* Test Item Value Reference Range Interpretation [...] code = CA) mg/dL 8.5-10.1 HEPATIC FUNCTION [id number] 09:30:00* Test Item Value Reference Range Interpretation [...] TOTAL (test code = ALKP) IUnit/L 45-117 [id number] 09:30:00* Test Item Value Reference Range Interpretation Comments LIPASE (test code = LIP) U/L 73.0-393.0 CBC W/O [id number] 09:13:00* Test Item Value Reference Range Interpretation [...] code = MPV) 10.6 fL 6.7-11.0 N [id number] 07:28:00* Test Item Value Reference Range Interpretation Comments GLUBED (test code = GLUBED) 173 mg/dL 74-106 H Performed by certified award machine operator at [facility] [id number] 20:56:00* Test Item Value Reference Range Interpretation Comments GLUBED (test code = GLUBED) 181 mg/dL 74-106 H Performed by certified award machine operator at [facility] [id number] 16:11:00* Test Item Value Reference Range Interpretation Comments GLUBED (test code = GLUBED) 245 mg/dL 74-106 H Performed by certified award machine operator at [facility] [id number] 11:55:00* Test Item Value Reference Range Interpretation Comments GLUBED (test code = GLUBED) 309 mg/dL 74-106 H Performed by certified award machine operator at [facility] [id number] 08:03:00* Test Item Value Reference Range Interpretation Comments GLUBED (test code = GLUBED) 241 mg/dL 74-106 H Performed by certified award machine operator at [facility] [id number] 00:08:00* Test Item Value Reference Range Interpretation Comments GLUBED (test code = GLUBED) 175 mg/dL 74-106 H Performed by certified award machine operator at [facility] [id number] 20:00:00* Test Item Value Reference Range Interpretation Comments GLUBED (test code = GLUBED) 167 mg/dL 74-106 H Performed by certified award machine operator at [facility] [id number] 16:45:00* Test Item Value Reference Range Interpretation Comments GLUBED (test code = GLUBED) 208 mg/dL 74-106 H Performed by certified award machine operator at [facility] [id number] 16:01:00* Test Item Value Reference Range Interpretation Comments GLUBED (test code = GLUBED) 47 mg/dL 74-106 LL Performed by certified award machine operator [facility] CenterNotified Nurse~ [id number] 11:44:00* Test Item Value Reference Range Interpretation Comments GLUBED (test code = GLUBED) 317 mg/dL 74-106 H Performed by certified award machine operator at [facility] [id number] 08:20:00* Test Item Value Reference Range Interpretation Comments GLUBED (test code = GLUBED) 271 mg/dL 74-106 H Performed by certified award machine operator at [facility] CBC W/AUTO [id number] 05:45:00* Test Item Value Reference Range Interpretation [...] = MDIFF) NO, ONLY SCAN NEEDED DIFFERENTIAL [id number] 05:45:00* Test Item Value Reference Range Interpretation Comments STAIN ACCEPTABILITY (test code = STN ACCEPTABLE) STAIN ACCEPTABLE POLYCHROMASIA (test code = POLC) 1+ HYPOCHROMIA (test code = HYPO) 1+ PLATELET ESTIMATE (test code = PLTEST) ADEQUATE PLATELET MORPHOLOGY (test code = PLTMORPH) NORMAL CBC W/AUTO [id number] 05:08:00* Test Item Value Reference Range Interpretation [...] = MDIFF) NO, ONLY SCAN NEEDED DIFFERENTIAL [id number] 05:08:00* Test Item Value Reference Range Interpretation Comments STAIN ACCEPTABILITY (test code = STN ACCEPTABLE) CABOT RINGS (test code = CAB) MORPHOLOGY COMMENT (test code = MOC) PLATELET ESTIMATE (test code = PLTEST) PLATELET MORPHOLOGY (test code = PLTMORPH) CBC W/AUTO [id number] 05:08:00* Test Item Value Reference Range Interpretation [...] = MDIFF) NO, ONLY SCAN NEEDED DIFFERENTIAL [id number] 05:08:00* Test Item Value Reference Range Interpretation Comments STAIN ACCEPTABILITY (test code = STN ACCEPTABLE) MORPHOLOGY COMMENT (test code = MOC) PLATELET ESTIMATE (test code = PLTEST) PLATELET MORPHOLOGY (test code = PLTMORPH) CBC W/AUTO [id number] 05:08:00* Test Item Value Reference Range Interpretation [...] = MDIFF) NO, ONLY SCAN NEEDED DIFFERENTIAL [id number] 05:08:00* Test Item Value Reference Range Interpretation Comments STAIN ACCEPTABILITY (test code = STN ACCEPTABLE) MORPHOLOGY COMMENT (test code = MOC) PLATELET ESTIMATE (test code = PLTEST) PLATELET MORPHOLOGY (test code = PLTMORPH) CBC W/AUTO [id number] 05:08:00* Test Item Value Reference Range Interpretation [...] = MDIFF) NO, ONLY SCAN NEEDED DIFFERENTIAL [id number] 05:08:00* Test Item Value Reference Range Interpretation Comments STAIN ACCEPTABILITY (test code = STN ACCEPTABLE) CABOT RINGS (test code = CAB) MORPHOLOGY COMMENT (test code = MOC) PLATELET ESTIMATE (test code = PLTEST) PLATELET MORPHOLOGY (test code = PLTMORPH) COMPREHENSIVE METABOLIC [id number] 05:04:00* Test Item Value Reference Range Interpretation [...] due to change in reagent. COMPREHENSIVE METABOLIC [id number] 04:54:00* Test Item Value Reference Range Interpretation [...] TOTAL (test code = ALKP) IUnit/L 45-117 [id number] 21:00:00* Test Item Value Reference Range Interpretation Comments GLUBED (test code = GLUBED) 334 mg/dL 74-106 H Performed by certified award machine operator at [facility] [id number] 16:10:00* Test Item Value Reference Range Interpretation Comments GLUBED (test code = GLUBED) 102 mg/dL 74-106 N Performed by certified award machine operator at [facility] [id number] 15:59:00* Test Item Value Reference Range Interpretation Comments GLUBED (test code = GLUBED) 339 mg/dL 74-106 H Performed by certified award machine operator at [facility] URINALYSIS [id number] 09:47:00* Test Item Value Reference Range Interpretation [...] 0-2 #/HPF 0-5 Urine Source? Clean CatchURINALYSIS [id number] 09:46:00* Test Item Value Reference Range Interpretation [...] HPF 0-5 Urine Source? Clean CatchBASIC METABOLIC [id number] 04:02:00* Test Item Value Reference Range Interpretation [...] CA) 9.3 mg/dL 8.5-10.1 N HEPATIC FUNCTION [id number] 04:02:00* Test Item Value Reference Range Interpretation [...] reference range due to change in reagent. [id number] 04:02:00* Test Item Value Reference Range Interpretation Comments LIPASE (test code = LIP) 22 U/L 73.0-393.0 L BASIC METABOLIC [id number] 03:53:00* Test Item Value Reference Range Interpretation [...] code = CA) mg/dL 8.5-10.1 HEPATIC FUNCTION [id number] 03:53:00* Test Item Value Reference Range Interpretation [...] TOTAL (test code = ALKP) IUnit/L 45-117 [id number] 03:53:00* Test Item Value Reference Range Interpretation Comments LIPASE (test code = LIP) U/L 73.0-393.0 CBC W/O [id number] 03:46:00* Test Item Value Reference Range Interpretation [...] code = MPV) 10.9 fL 6.7-11.0 N [id number] 17:23:00 RUN DATE: 12/16/17 [employer] PAGE 1 RUN TIME: 1723 Specimen Inqui ry RUN USER: INTERFACE PATIENT: BREE LINDSAY ACCT #: [id number] LOC: JOHNATHAN #: [id number] AGE/SX: 42/M ROOM: 2046 RE12/11/17REG DR: Olegario Diaz MD : 75 BED: A DIS: 12/13/17 STATUS: DIS IN TLOC: SPEC #: [id number] RECD: 12/14/17-114 STATUS: SHAHRAM NAVARRETE #: [id number] HUY: 12/11/17- SUBM DR: Kvng Izaguirre MD ENTERED: 12/14/17-1150 SP TYPE: STOMACH OTHR DR: Levi Natarajan i, MD ORDERED: GROSS COPIES TO: Kvng Izaguirre MD [address] [place] [address] Levi Lakhani MD [address] [place], [place] [address] PROCEDURES: GROSS (12/15/17-1304 ) TISSUES: 1. GASTRIC [...] DYSPLASIA NEGATIVE FOR MALIGNANCY MYA/sm D [phone] CONTINUED ON NEXT PAGE RUN DATE: 12/16/17 [facility] PAGE 2 RUN TIME: 172 3 Specimen Inquiry RUN USER: INTER FACE SPEC #: [id number] PATIENT: BREE LINDSAY #[id number] (Con tinued) MACROSCOPIC The first specimen is [...] measuring 0.2 cm each. GROSS PERFORMED AT [facility] [address] [place] [address] (p)[phone] MICROSCOPIC MICROSCOPIC PERFORMED AT [facility] All of the stains, including any controls performed, hao swift. [address] [address] (p)[phone] PERFORMING SITE Diagnosis performed at: [facility] [address] [facility] [place] [address] Signed SIGNATURE ON FILE Leigh Ann Fuller 12/16/17 1723 END OF REPORT
== END 2019-10-28 17:55 | disposition home or self-care (01) | DRG 74 ==
LOC: FSED 13:37 → ERHOLD 14:43 → MED/SURG2 17:12
PROVIDERS: ADMIT Internal Medicine; ATTEND Internal Medicine
DX: E11.43 Type 2 diabetes mellitus with diabetic autonomic (poly)neuropathy (principal); E86.0 Dehydration; I10 Essential (primary) hypertension; K27.9 Peptic ulcer, site unspecified, unspecified as acute or chronic, without hemorrhage or perforation; Z11.59 Encounter for screening for other viral diseases; Z95.810 Presence of automatic (implantable) cardiac defibrillator
CPT/HCPCS: 36415; 80048; 80053; 80307; 81003; 82948; 83036; 83690; 85025; 96374; 96375; 96376; 99284; J1200; J1817; J1940; J2270; J2405; J2550; J2765; J7030; U0002

== ENCOUNTER 2019-11-07 16:24 | Emergency (ER) | payer MEDICARE, OTHER ==
[~2019-11-07] VITALS: Ht 185.4 cm; Wt 83.0 kg
[2019-11-07] MEDS ORDERED: MORPHINE SULFATE 2 MG/ML SYR 1ML IV STA (16:55)
[2019-11-07] MEDS ORDERED: SODIUM CHLORIDE 0.9% 1000ML 1,000 ML IV STA ×2 (16:55→17:59)
[2019-11-07] MEDS ORDERED: PROMETHAZINE 12.5MG/ NACL 0.9% 12.5 MG/50 ML BAG IV ONE (17:00)
[2019-11-07] MEDS ORDERED: SODIUM CHLORIDE 0.9% 50ML 50 ML ONE (17:08)
[2019-11-07] MEDS ORDERED: MORPHINE SULFATE INJ 4 MG/ML INJ 1ML ONE (17:08)
[2019-11-07] MEDS ORDERED: PROMETHAZINE HCL (IM) 25 MG/ML VIAL IM ONE (17:08)
[2019-11-07] MEDS ORDERED: SODIUM CHLORIDE 0.9% 1000ML 1,000 ML ONE ×2 (17:09→18:02)
--- OUTSIDE RECORDS SUMMARY | 2019-11-07 17:33 | XMS REPORT | Clinical Summary ---
Author Author DEMARIO [facility] Address Unknown Phone Unavailable Care Team Providers Care Inventory Controller Name Role Phone Pcp, No PCP Unavailable [...] (HCC); Cannabinoid hyperemesis syndrome (HCC); Hypokalemia 12/13/2018 [facility] Internal [place] - Encounter 12/14/2018 12/13/2018 Travel after 11/06/2018 Family History Medical History Relation Name Comments [...] METER Routine 12/13/2018 12:25 PM CDT after 11/06/2018 Results * EKG-SCANNED (12/16/2018 9:02 AM CDT) Narrative Performed At This result has an attachment that is n ot available. * POC-Glucose meter (12/14/2018 5:15 PM CDT) Only the most recent of 6 results within the time period is included. POC-Glucose Meter 266 (H)Comment: TESTED AT 70 - 110 mg/dL C HI [facility] [address] [facility] [address] Specimen Blood Performing Organization Address City/State/Zipcode Ph one Number [facility] [phone] [place], [place] [address] [facility] * ECG 12 lead (12/14/2018 10:08 AM CDT) Specimen Narrative Performed At Ventricular Rate 78 BPM GE MUSE Atrial Rate 78 BPM P-R Interval 168 ms QRS Duration 80 ms Q-T Interval 350 ms QTC Calculation(Bazett) 399 ms P [place] 52 degrees R [place] -14 degrees T [place] 35 degrees Normal sinus rhythm Normal ECG No previous ECGs available Confirmed by MD MEGGAN, MARCELINO ([id number] ) on 12/14/2018 2:27:24 PM Procedure Note Interface, External Ris In - 12/14/2018 2:27 PM CDT Ventricular Rate 78 BPM Atrial Rate 78 BPM P-R Interval 168 ms QRS Duration 80 ms Q-T Interval 350 ms QTC Calculation(Bazett) 399 ms P [place] 52 degrees R [place] -14 degrees T [place] 35 degrees Normal sinus rhythm Normal ECG No previous ECGs available Confirmed by MD MEGGAN, MARCELINO ([id number]) on 12/14/2018 2:27:24 PM Performing Organization Address City/State/Zipcode Ph one Number GE MUSE * CBC with platelet count + automated diff (12/14/2018 4:58 AM CDT) Only the most recent of 2 results within the time period is included. WBC 7.5 3.5 - 10.5 K/L [facility] RBC 3.38 (L) 4.63 - 6.08 M/L [facility] Hemoglobin 9.8 (L) 13.7 - 17.5 GM/DL [facility] Hematocrit 31.1 (L) 40.1 - 51.0 % [facility] MCV 92.0 79.0 - 92.2 fL [facility] MCH 29.0 25.7 - 32.2 pg [facility] MCHC 31.5 (L) 32.3 - 36.5 GM/DL [facility] RDW 14.1 11.6 - 14.4 % [facility] Platelets 208Comment: Discordant PLT 150 - 450 K/CU MM [facility] results compared to previous [facility] results; clinical correlation required. MPV 10.4 9.4 - 12.4 fL [facility] nRBC 0 0 - 0 /100 WBC [facility] % Neutros 66 % [facility] % Lymphs 20 % [facility] % Monos 12 % [facility] % Eos 1 % [facility] % Baso 1 % [facility] # Neutros 4.92 1.78 - 5.38 K/L [facility] # Lymphs 1.46 1.32 - 3.57 K/L [facility] # Monos 0.92 (H) 0.30 - 0.82 K/L [facility] # Eos 0.10 0.04 - 0.54 K/L [facility] # Baso 0.07 0.01 - 0.08 K/L [facility] Immature 0 0 - 1 % [facility] Granulocytes-Relative [facility] Specimen Blood Performing Organization Address [facility] one Number [place] [phone] [place] [address] * Phosphorus (12/14/2018 4:58 AM CDT) Phosphorus 2.2 (L) 2.3 - 4.7 mg/dL [facility] Specimen Blood Performing Organization Address City/[facility] one Number [place] [phone] [place] [address] * Magnesium (12/14/2018 4:58 AM CDT) Magnesium 1.6 1.6 - 2.6 mg/dL [facility] Specimen Blood Performing Organization Address City/[facility] one Number [address] [facility] * Basic metabolic panel (12/14/2018 4:58 AM CDT) Only the most recent of 2 results within the time period is included. Sodium 139 136 - 145 meq/L [facility] Potassium 3.2 (L) 3.5 - 5.1 meq/L [facility] Chloride 105 98 - 107 meq/L [facility] CO2 28 22 - 29 meq/L [facility] BUN 11 7 - 21 mg/dL [facility] Creatinine 1.12 0.57 - 1.25 mg/dL [facility] Glucose 112 (H) 70 - 105 mg/dL [facility] Calcium 8.7 8.4 - 10.2 mg/dL [facility] EGFR 87Comment: ESTIMATED GFR IS mL/min/1.73 sq m [facility] NOT ACCURATE CREATININE [facility] CLEARANCE IN PREDICTING GLOMERULAR FILTRATION RATE. ESTIMATED GFR IS NOT APPLICABLE FOR DIALYSIS PATIENTS. Specimen Blood Performing Organization Address [facility] one Elijah [address] [facility] * Hemoglobin A1c (12/13/2018 3:38 PM CDT) Hemoglobin A1C 8.4 (H) 4.3 - 6.1 % [facility] Specimen Blood Performing Organization Address City/[facility] one Number [place] [address] [facility] * Hepatic function panel (12/13/2018 3:38 PM CDT) Protein, Total 6.9 6.0 - 8.3 gm/dL [facility] Albumin 3.9 3.5 - 5.0 g/dL [facility] Total Bilirubin 0.5 0.2 - 1.2 mg/dL [facility] Bilirubin, Direct 0.2 0.1 - 0.5 mg/dL [facility] Alkaline Phosphatase 80 40 - 150 U/L [facility] AST 18 5 - 34 U/L [facility] ALT 15 6 - 55 U/L [facility] Specimen Blood Performing Organization Address [facility] Ph one Number [address] [facility] * Lipid panel (12/13/2018 3:38 PM CDT) Triglycerides 101 mg/dL [facility] Cholesterol 151 mg/dL [facility] HDL 38 mg/dL [facility] LDL Calculated 93 mg/dL [facility] Specimen Blood Narrative Performed At Triglyceride Reference Range: [facility] Low Risk <[address] [facility] [facility] [id number] High Risk 200-499 Very High Risk>=500 Cholesterol Reference Range: Low Risk <200 [id number] High Risk>240 HDL Cholesterol Reference Range: Low Risk >=60 High Risk <40 LDL Cholesterol Reference Range: Optimal<100 Near [id number] Very High >=190 Performing Organization Address City/[facility] Ph one Number [address] [facility] after 11/06/2018 Insurance Payer Benefit Subscriber ID Type Phone Address Plan / Group MEDICARE MEDICARE A xxxxxxxxxxx Medicare B [id number] Advance Directives For more information, please contact: [address] [address] Date Inactivated Comments Code Status Date Activated 12/15/2018 12:01 AM Full Code 12/13/2018 10:07 AM This code status was determined by: Patient
--- OUTSIDE RECORDS SUMMARY | 2019-11-07 17:37 | XMS REPORT | Continuity of Care Document ---
Author Author [facility] t Organization [facility] Address [address] [place] [address] Phone Unavailable Care Team Providers Care Amf Mechanic Name Role Phone Chao BECKMAN PCP ISACC JAVED Attphys Unavailable JEANNIE QUINONES MD Attphys Unavailable Keeley CARTER Attphys Unavailable NEIL PEREZ Attphys Unavailable Dasia GIBSON, Zaina Attphys Rosa FALLON, Jyoti Sharon Attphys [phone] Rigo Mott MD Attphys [phone] ROSA MURALINATH SHARON Attphys Unavailable TAVIA GARCIA Attphys Unavailable ISACC JAVED Admphys Unavailable DAMISAEL, Keeley MERCER Admphys Unavailable ROSA MURALINHILL SHARON Admphys Unavailable Payers Payer Name Policy Type Policy Number Effective Date Expiration Date Keeley cagle Medicare A & B [id number] 2016 00:00:00 [facility] Cdc Review Covid19 [id number] [facility] MEDICAREMEDICARE A BxxxxxxxxxxxMedicare xxxxxxxxxxx [facility] Problems Condition Name Condition Details Condition Category Status Onset Date Resolution Date Last Treatment Date Treating Clinician Comments Source Gastroparesis Gastroparesis Disease Active 2018-12-13 00:00:00 [facility] Diabetic gastroparesis associated with type 2 diabetes mellitus Diabetic gastroparesis associated with type 2 diabetes mellitus Problem [facility] Upper gastrointestinal hemorrhage Upper GI bleed Problem [facility] Dehydration Dehydration Problem [facility] Nausea and vomiting Nausea & vomiting Problem [facility] Hematemesis Problem [facility] Acute epigastric pain Problem [facility] Abdominal pain Problem Active [facility] Vomiting Problem [facility] Tachycardia Problem [facility] Hyperglycemia Problem Active [facility] Colitis Problem [facility] Intractable vomiting with nausea Problem [facility] Abnormal kidney function Problem [facility] Allergies, Adverse Reactions, Alerts Allergy Name Allergy Type Status Severity Reaction(s) Onset Date Inacti ve Date Treating Clinician Comments Source No Known Allergies DA Active U 2019-02-13 00:00:00 [facility] No Known Allergies DA Active U 2019-02-06 00:00:00 [facility] No Known Allergies DA Active U 2018-05-11 00:00:00 [facility] No Known Allergies DA Active U 2018-02-26 00:00:00 [facility] No Known Allergies DA Active U 2018-01-14 00:00:00 [facility] No Known Allergies DA Active U 2017-12-15 00:00:00 [facility] No Known Allergies DA Active U 2017-10-09 00:00:00 [facility] Family History Family Member Diagnosis Comments Start Date Stop Date Source Maternal uncle Diabetes [facility] Natural mother Diabetes [facility] Social History Social Habit Start Date Stop Date Quantity Comments Source History SDOH Alcohol Std Drinks [facility] History SDOH Alcohol Binge [facility] Sex Assigned At [facility] History SDOH Alcohol Frequency 2018-12-13 00:00:00 2018-12-13 00:00:0 0 1 [facility] Smoking Status Start Date Stop Date Source Never smoker [facility] Medications Ordered Medication Name Filled Medication Name Start Date Stop Da te Current Medication? Ordering Clinician Indication Dosage Frequency Signature (SIG) Comments Components Source Acetaminophen With Codeine (Tylenol With Codeine #3 Ta blet) 1 Each TABLET Acetaminophen With Codeine (Tylenol With Codeine #3 Tablet) 1 Each TABLET 2019-10-28 10:59:00 Yes 300 Every 12 Jessenia rs as needed for Abdominal Pain [facility] Promethazine Hcl Promethazine Hcl 2019-09-21 09:25:00 Yes 25 Every 6 Hours for Vomiting [facility] Losartan Potassium Losartan Potassium 2019-08-25 13:46:00 2019-08-30 5 00:00:00 No 50 Daily [facility] Acetaminophen With Codeine (Tylenol With Codeine #3 Ta blet) 1 Each TABLET Acetaminophen With Codeine (Tylenol With Codeine #3 Tablet) 1 Each TABLET 2019-07-10 18:44:00 2019-09-22 00:00:00 No 300 Every 6 Hours as needed for Pain [facility] Promethazine Hcl Promethazine Hcl 2019-07-06 13:42:00 2019-07-10 00:00 :00 No 25 Three Times A Day [facility] promethazine (PHENERGAN) 12.5 MG tablet 00:00:00 2018-12-21 23:59:00 No 12.5mg Take 1 tablet (12.5 mg total) by mouth every 6 (six) hours as needed for Nausea for up to 7 days. [facility] insulin glargine (LANTUS) 100 unit/mL injection 2018-12-13 1 7:58:14 Yes type 2 diabetes mellitus 25U QD Inject 25 Units subcutaneously nightly Use as directed . [facility] dicyclomine (BENTYL) 10 MG capsule 2018-12-13 17:58:14 Y es 10mg Q.[id number] Take 10 mg by mouth 3 (three) times daily. 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 [facility] pantoprazole (PROTONIX) 20 MG tablet 2018-12-13 17:58:14 Ye s 20mg Take 20 mg by mouth 2 (two) times daily before meals. [facility] traMADol (ULTRAM) 50 mg tablet 2018-12-13 17:58:14 Yes 50mg Q.[id number] Take 50 mg by mouth 3 (three) times daily. [facility] insulin aspart U-100 (NOVOLOG) 100 unit/mL injection 2 17:58:13 Yes type 2 diabetes mellitus 5U Inj ect 5 Units subcutaneously 3 (three) times daily before meals. [facility] Ondansetron (Ondansetron Odt) 8 Mg TAB.[facility] Ondanset calli (Ondansetron Odt) 8 Mg TAB.RAPDIS 2018-12-12 19:01:00 2019-07-10 00:00:00 No 4 Three Times A Day as needed for Nausea, Vomiting [facility] Promethazine Hcl (Phenergan Supp*) 25 Mg SUPP Prometha zine Hcl (Phenergan Supp*) 25 Mg SUPP 2018-12-12 19:01:00 2019-07-10 00:00:00 No 25 Three Times A Day as needed for Nausea, Vomiting [facility] Metoclopramide Hcl (Reglan) 10 Mg TABLET Metoclopramid e Hcl (Reglan) 10 Mg TABLET 2018-11-25 06:19:00 Yes 1 Before Meals And At Bedtime [facility] Pantoprazole Sodium (Protonix) 40 Mg TABLET. Pantopr azole Sodium (Protonix) 40 Mg TABLET. 2018-11-25 06:19:00 Yes 40 Daily [facility] Amlodipine Besylate (Norvasc) 10 Mg TAB Amlodipine Besylate (Norvasc) 10 Mg TAB 2018-11-25 06:19:00 2019-07-09 00:00:00 No 10 Daily [facility] Insulin Aspart (Novolog) 100 Units/1 Ml INJ Insulin As part (Novolog) 100 Units/1 Ml INJ Yes 8 Three Times Daily With Meals [facility] Insulin Glargine (Lantus 3ML Pen) 100 Units/1 Ml INJ I nsulin Glargine (Lantus 3ML Pen) 100 Units/1 Ml INJ Yes 15 Bedtime [facility] Lisinopril Lisinopril Yes 5 Daily [facility] Ondansetron Hcl Ondansetron Hcl Yes 4 Every 6 Hours as needed for Nausea [facility] Dicyclomine Hcl Dicyclomine Hcl 2019-07-10 00:00:00 No 10 Three Times A Day [facility] Promethazine Hcl Promethazine Hcl 2019-07-10 00:00:00 No 25 Three Times A Day as needed for Nausea [facility] Tramadol Hcl (Ultram 50MG*) 50 Mg TAB Tramadol Hcl (Ultram 50MG* ) 50 Mg TAB 2019-07-10 00:00:00 No 1 Three Times A Day as needed for Mild Pain (1-3) Or Fever>100.8 [facility] Glimepiride Glimepiride 2019-07-09 00:00:00 No 2 D aily [facility] Metoclopramide Hcl (Reglan) 10 Mg TABLET Metoclopramid e Hcl (Reglan) 10 Mg TABLET 2018-11-25 00:00:00 No 1 Bedtime [facility] Metoclopramide Hcl Metoclopramide Hcl 2018-11-25 00:00:00 No 10 Three Times A Day [facility] Metoclopramide Hcl (Reglan) 10 Mg TABLET Metoclopramid e Hcl (Reglan) 10 Mg TABLET 2018-11-25 00:00:00 No 1 Three Times A Day [facility] Pantoprazole Sodium (Protonix) 40 Mg TABLET. Pantopr azole Sodium (Protonix) 40 Mg TABLET. 2018-11-25 00:00:00 No 40 Daily [facility] Pantoprazole Sodium (Protonix) 40 Mg TABLET. Pantopr azole Sodium (Protonix) 40 Mg TABLET. 2018-11-25 00:00:00 No 40 Twice A Day [facility] Vital Signs Vital Name Observation Time Observation Value Comments Source Body Temperature 2019-10-28 16:21:00 98.1 [degF] [facility] Weight 2019-10-27 17:29:00 184 [lb_av] [facility] BMI (Body Mass Index) 2019-10-27 17:29:00 24.3 kg/m2 [facility] Body Temperature 2019-10-06 11:55:00 98.0 [degF] [facility] BMI (Body Mass Index) 2019-10-06 00:13:00 25.7 kg/m2 [facility] Weight 2019-10-03 16:16:00 195 [lb_av] [facility] Weight 2019-09-30 07:59:00 195 [lb_av] [facility] BMI (Body Mass Index) 2019-09-30 07:59:00 25.7 kg/m2 [facility] Body Temperature 2019-09-29 23:05:00 99.3 [degF] [facility] Weight 2019-09-29 20:31:00 195 [lb_av] [facility] BMI (Body Mass Index) 2019-09-29 20:31:00 25.7 kg/m2 [facility] Body Temperature 2019-09-24 07:56:00 97.9 [degF] [facility] BMI (Body Mass Index) 2019-09-24 00:04:00 25.7 kg/m2 [facility] Weight 2019-09-22 07:12:00 195 [lb_av] [facility] Weight 2019-09-21 07:05:00 193 [lb_av] [facility] BMI (Body Mass Index) 2019-09-21 07:05:00 25.5 kg/m2 [facility] Body Temperature 2019-09-20 23:35:00 97.7 [degF] [facility] Weight 2019-09-20 21:36:00 193 [lb_av] [facility] BMI (Body Mass Index) 2019-09-20 21:36:00 25.5 kg/m2 [facility] Weight 2019-08-23 17:53:00 195 [lb_av] [facility] BMI (Body Mass Index) 2019-08-23 17:53:00 25.7 kg/m2 [facility] Body Temperature 2019-07-24 12:23:00 97.6 [degF] [facility] Systolic blood pressure 2018-12-14 15:44:00 160 mm[Hg] [facility] Diastolic blood pressure 2018-12-14 15:44:00 82 mm[Hg] [facility] Heart rate 2018-12-14 15:44:00 69 /min [facility] Body temperature 2018-12-14 15:44:00 37.44 Sarai [facility] Respiratory rate 2018-12-14 15:44:00 18 /min [facility] Oxygen saturation in Arterial blood by Pulse oximetry 12-14 15:44:00 97 /min [facility] Body weight Measured 2018-12-13 10:20:00 86.274 kg [facility] Procedures Procedure Date / Time Performed Performing Clinician Julianne núñez EXCISION OF DUODENUM, ENDO, DIAGN 2019-10-05 00:00:00 [facility] EXCISION OF STOMACH, PYLORUS, ENDO, DIAGN 2019-10-05 00:00:00 [facility] Computed tomography of abdomen and pelvis with contrast 00:00:00 [facility] Computed tomography of abdomen and pelvis with contrast 00:00:00 [facility] EMERGENCY DEPT VISIT 2019-09-21 00:00:00 [facility] EMERGENCY DEPT VISIT 2019-09-20 00:00:00 [facility] REPORT OF PROCEDURE - ENDOSCOPY SCAN 2018-12-16 09:02:06 Pro vider, Default Scanning [facility] POCT-GLUCOSE METER 2018-12-14 17:15:00 Shant Mott ran [facility] POCT-GLUCOSE METER 2018-12-14 12:04:00 Shant Mott [facility] ECG 12-LEAD 2018-12-14 10:08:16 Shant Mott [facility] POCT-GLUCOSE METER 2018-12-14 07:43:00 Shant Mott [facility] BASIC METABOLIC PANEL (7) 2018-12-14 04:58:00 Gadicherla, Sharon Muralinath [facility] PHOSPHORUS 2018-12-14 04:58:00 Gadicherla, Sharon Muralinath [facility] MAGNESIUM 2018-12-14 04:58:00 Gadicherla, Sharon Muralinath [facility] CBC W/PLT COUNT & AUTO DIFFERENTIAL 2018-12-14 04:58:00 Jared cherla, Sharon Muralinath [facility] POCT-GLUCOSE METER 2018-12-13 21:09:00 Gadicherla, Sharon Muralin ath [facility] POCT-GLUCOSE METER 2018-12-13 15:54:00 Gadicherla, Sharon Muralin [facility] BASIC METABOLIC PANEL (7) 2018-12-13 15:38:00 Gadicherla, Sharon Muralinath [facility] HEPATIC FUNCTION PANEL 2018-12-13 15:38:00 Gadicherla, Sharon Mur alinath [facility] HEMOGLOBIN A1C 2018-12-13 15:38:00 Sharon Lee [facility] LIPID PANEL 2018-12-13 15:38:00 NaziaerSharon sepulvedaalinhill [facility] CBC W/PLT COUNT & AUTO DIFFERENTIAL 2018-12-13 15:38:00 Sharon Masonalinath [facility] POCT-GLUCOSE METER 2018-12-13 12:25:00 NaziaerSharon sepulveda ath [facility] Plan of Care Planned Activity Planned Date Details Comments Source Instructions Abdominal Pain - Adult [facility] S t. [facility] Instructions [facility]omiting - [facility] Encounters Start Date/Time End Date/Time Encounter Type Admission Type AttendRUST Care Department Encounter ID Source 2019-10-27 14:43:00 2019-10-28 17:55:00 Discharged Inpatient [facility] [id number] [facility] 2019-10-04 00:35:00 2019-10-06 12:14:00 [id number] [facility] 2019-09-30 08:15:00 2019-09-30 14:10:00 Departed Emergency Room 1 JEANNIE QUINONES MD [facility] [id number] JENNYFER Huber . [facility] 2019-09-29 20:40:00 2019-09-29 23:05:00 Departed Emergency Room [facility] [id number] [facility] Patients Sc dical [place] 2019-09-22 09:41:00 2019-09-24 08:22:00 Discharged Inpatient 1 RUSLAN CARTER [facility] [id number] [facility] Gloria kes Patients [facility] 2019-09-21 07:02:00 2019-09-21 11:05:00 Departed Emergency Room [facility] [id number] [facility] 2019-09-20 20:47:00 2019-09-20 23:35:00 Departed Emergency Room [facility] [id number] [facility] 2019-08-24 08:10:00 2019-08-25 14:00:00 Discharged Inpatient (obs) [facility] [id number] [facility] 2019-08-23 17:24:00 2019-08-23 19:35:00 Departed Emergency Room [facility] [id number] [facility] 2019-07-23 06:38:00 2019-07-24 13:59:00 Discharged Inpatient 1 NEIL PEREZ [facility] [id number] [facility] - Patients [facility] 2019-07-09 15:58:00 2019-07-10 18:57:00 Discharged Inpatient (obs) [facility] [id number] [facility] 2019-07-06 11:09:00 2019-07-06 14:11:00 Departed Emergency Room [facility] [id number] [facility] 2019-05-31 00:00:00 2019-05-31 00:00:00 Transition of Care Zaina Forman [id number] 2018-12-13 06:33:00 2018-12-13 08:35:00 Departed Emergency Room [facility] [id number] [facility] 2018-12-12 17:07:00 2018-12-12 19:35:00 Departed Emergency Room [facility] Center [id number] [facility] 2018-11-22 18:24:00 2018-11-25 16:05:00 Discharged Inpatient 1 ISACC JAVED [facility] [id number] [facility] 2018-09-28 12:15:00 2018-09-28 16:32:00 Departed Emergency Room [facility] [id number] [facility] 2018-09-20 08:55:00 2018-09-20 08:55:00 Registered Clinic 3 TAVIA GARCIA [facility] [id number] [facility] 2018-08-10 13:35:00 2018-08-10 17:00:00 Departed Emergency Room [facility] [id number] [facility] 2018-07-05 11:53:00 2018-07-07 08:40:00 Discharged Inpatient [facility] [id number] [facility] 2018-06-23 07:38:00 2018-06-23 07:38:00 Registered Clinic 3 TAVIA GARCIA [facility] [id number] [facility] Results Test Description Test Time Test Comments Results Result Comments Source Capillary blood glucose measurement by glucometer (mas s/volume) 2019-10-28 15:46:00 Test Item Bedside Glucose (test code = 14739-8) 62 70-120 Meter ID: [id number] [facility] or plasma sodium measurement (moles/volume)2019-10-28 04:50:00* Test Item Value Reference Range Interpretation Comments Sodium Level (test code = 2951-2) 141 136-145 [facility] potassium measurement (moles/volume)2019-10-28 04:50:00* Test Item Value Reference Range Interpretation Comments Potassium Level (test code = 2823-3) 3.7 3.5-5.1 [facility] or plasma chloride measurement (moles/volume)2019-10-28 04:50:00* Test Item Value Reference Range Interpretation Comments Chloride Level (test code = 2075-0) 106 98-107 [facility] or plasma carbon dioxide, total measurement (moles/volume)2019-10-28 04:50:00* Test Item Value Reference Range Interpretation Comments Carbon Dioxide Level (test code = 2028-9) 24 22-29 [facility] or plasma anion [id number] 04:50:00* Test Item Value Reference Range Interpretation Comments Anion Gap (test code = 02386-3) 14.7 8-16 [facility] or plasma urea nitrogen measurement (mass/volume)2019-10-28 04:50:00* Test Item Value Reference Range Interpretation Comments Blood Urea Nitrogen (test code = 3094-0) 17 7-26 [facility] or plasma creatinine measurement (mass/volume)2019-10-28 04:50:00* Test Item Value Reference Range Interpretation Comments Creatinine (test code = 2160-0) 1.15 0.72-1.25 [facility] or plasma urea nitrogen/creatinine mass [id number] 04:50:00* Test Item Value Reference Range Interpretation Comments BUN/Creatinine Ratio (test code = 3097-3) 15 6-25 [facility] Center[facility] filtration rate (GFR) objhudpwgkozr8803-47-22 04:50:00* Test Item Value Reference Range Interpretation Comments Estimat Glomerular Filtration Rate (test code = 059573835) > 60 >60 Ranges were taken from the National Kidney Disease Education Program and the [facility] [employer] literature.Reference ranges:60 or greater: Ckxwnw84-26 ( for 3 consecutive months): Chronic kidney disease 15 or less: Kidney failureCitizens Medical CenterGlucose rnfeuihyerr7096-15-57 04:50:00* Test Item Value Reference Range Interpretation Comments Glucose Level (test code = INC2227) 246 74-118 [facility] or plasma calcium measurement (mass/volume)2019-10-28 04:50:00* Test Item Value Reference Range Interpretation Comments Calcium Level (test code = 25228-6) 8.4 8.4-10.2 [facility] CenterFluoroscopic procedure less than one hour [id number] 04:50:00* Test Item Value Reference Range Interpretation Comments Hemoglobin A1c Percent (test code = Hemoglobin A1c Percent) 9.9 4.0-7.0 [facility] or plasma lipase measurement (enzymatic activity/volume)2019-10-28 04:50:00* Test Item Value Reference Range Interpretation Comments Lipase (test code = 3040-3) < 4 8-78 [facility] Center[facility] leukocytes automated count (number/volume)2019-10-27 13:50:00* Test Item Value Reference Range Interpretation Comments White Blood Count (test code = 6690-2) 7.16 4.8-10.8 [facility] Center[facility] erythrocytes automated count (number/volume)2019-10-27 13:50:00* Test Item Value Reference Range Interpretation Comments Red Blood Count (test code = 789-8) 3.97 4.3-5.7 [facility] Center[facility] hemoglobin measurement (moles/volume)2019-10-27 13:50:00* Test Item Value Reference Range Interpretation Comments Hemoglobin (test code = 90590-8) 11.2 14.0-18.0 [facility] CenterAutomated blood hematocrit (volume fraction)2019-10-27 13:50:00* Test Item Value Reference Range Interpretation Comments Hematocrit (test code = 4544-3) 35.7 38.2-49.6 [facility] CenterAutomated erythrocyte mean corpuscular [id number] 13:50:00* Test Item Value Reference Range Interpretation Comments Mean Corpuscular Volume (test code = 787-2) 89.9 81-99 [facility] CenterAutomated erythrocyte mean corpuscular hemoglobin (mass per erythrocyte)2019-10-27 13:50:00* Test Item Value Reference Range Interpretation Comments Mean Corpuscular Hemoglobin (test code = 785-6) 28.2 28-32 [facility] CenterAutomated erythrocyte mean corpuscular hemoglobin concentration measurement (mass/volume)2019-10-27 13:50:00* Test Item Value Reference Range Interpretation Comments Mean Corpuscular Hemoglobin Concent (test code = 786-4) 31.4 31-35 [facility] CenterRDW VamBl-[id number] 13:50:00* Test Item Value Reference Range Interpretation Comments Red Cell Distribution Width (test code = 21391-6) 13.1 11.7 -14.4 [facility] CenterAutomated blood platelet count (count/volume)2019-10-27 13:50:00* Test Item Value Reference Range Interpretation Comments Platelet Count (test code = 777-3) 226 140-360 [facility] CenterAutomated blood segmented neutrophil count as percentage of total hxmvcnhmpi5583-48-75 13:50:00* Test Item Value Reference Range Interpretation Comments Neutrophils (%) (Auto) (test code = 37542-5) 85.1 38.7-80.0 [facility] CenterAutomated blood lymphocyte count as percentage ot total xzocygxnxq2912-89-57 13:50:00* Test Item Value Reference Range Interpretation Comments Lymphocytes (%) (Auto) (test code = 736-9) 10.3 18.0-39.1 [facility] CenterAutomated blood monocyte count as percentage of total jtenqemxtd5025-81-66 13:50:00* Test Item Value Reference Range Interpretation Comments Monocytes (%) (Auto) (test code = 5905-5) 3.5 4.4-11.3 [facility] CenterAutomated blood eosinophil count as percentage of total tnanrzdgwn5493-66-99 13:50:00* Test Item Value Reference Range Interpretation Comments Eosinophils (%) (Auto) (test code = 713-8) 0.1 0.0-6.0 [facility] CenterAutomated blood basophil count as percentage of total dmfbnvyczj9799-47-84 13:50:00* Test Item Value Reference Range Interpretation Comments Basophils (%) (Auto) (test code = 706-2) 0.7 0.0-1.0 [facility] CenterFluoroscopic procedure less than one hour [id number] 13:50:00* Test Item Value Reference Range Interpretation Comments IM GRANULOCYTES % (test code = IM GRANULOCYTES %) 0.3 0.0- 1.0 [facility] CenterAutom[facility] blood neutrophil count 2019-10-27 13:50:00* Test Item Value Reference Range Interpretation Comments Neutrophils # (Auto) (test code = 751-8) 6.1 2.1-6.9 [facility] lymphocytes count (number/volume) 2019-10-27 13:50:00* Test Item Value Reference Range Interpretation Comments Lymphocytes # (Auto) (test code = 95493-0) 0.7 1.0-3.2 [facility] monocytes automated count (number/volume)2019-10-27 13:50:00* Test Item Value Reference Range Interpretation Comments Monocytes # (Auto) (test code = 742-7) 0.3 0.2-0.8 [facility] CenterAutomated blood eosinophil count 2019-10-27 13:50:00* Test Item Value Reference Range Interpretation Comments Eosinophils # (Auto) (test code = 711-2) 0.0 0.0-0.4 [facility] CenterAutomated blood basophil count (count/volume)2019-10-27 13:50:00* Test Item Value Reference Range Interpretation Comments Basophils # (Auto) (test code = 704-7) 0.1 0.0-0.1 [facility] CenterFluoroscopic procedure less than one hour oztxfjdg9400-34-28 13:50:00* Test Item Value Reference Range Interpretation Comments Absolute Immature Granulocyte (auto (zeenat t code = Absolute Immature Granulocyte (auto) 0.02 0-0.1 [facility] leukocytes automated count (number/volume)2019-10-06 05:15:00* Test Item Value Reference Range Interpretation Comments White Blood Count (test code = 6690-2) 7.83 4.8-10.8 [facility] erythrocytes automated count (number/volume)2019-10-06 05:15:00* Test Item Value Reference Range Interpretation Comments Red Blood Count (test code = 789-8) 3.95 4.3-5.7 [facility] hemoglobin measurement (moles/volume)2019-10-06 05:15:00* Test Item Value Reference Range Interpretation Comments Hemoglobin (test code = 39953-1) 11.2 14.0-18.0 [facility] CenterAutomated blood hematocrit (volume fraction)2019-10-06 05:15:00* Test Item Value Reference Range Interpretation Comments Hematocrit (test code = 4544-3) 35.5 38.2-49.6 [facility] CenterAutomated erythrocyte mean corpuscular sfmqrw6464-83-12 05:15:00* Test Item Value Reference Range Interpretation Comments Mean Corpuscular Volume (test code = 787-2) 89.9 81-99 [facility] CenterAutomated erythrocyte mean corpuscular hemoglobin (mass per erythrocyte)2019-10-06 05:15:00* Test Item Value Reference Range Interpretation Comments Mean Corpuscular Hemoglobin (test code = 785-6) 28.4 28-32 [facility] CenterAutomated erythrocyte mean corpuscular hemoglobin concentration measurement (mass/volume)2019-10-06 05:15:00* Test Item Value Reference Range Interpretation Comments Mean Corpuscular Hemoglobin Concent (test code = 786-4) 31.5 31-35 [facility] CenterRDW ZazQz-Pph2628-48-09 05:15:00* Test Item Value Reference Range Interpretation Comments Red Cell Distribution Width (test code = 84479-5) 13.4 11.7 -14.4 [facility] CenterAutomated blood platelet count (count/volume)2019-10-06 05:15:00* Test Item Value Reference Range Interpretation Comments Platelet Count (test code = 777-3) 243 140-360 [facility] CenterAutomated blood segmented neutrophil count as percentage of total ewqoitwtaw1793-50-57 05:15:00* Test Item Value Reference Range Interpretation Comments Neutrophils (%) (Auto) (test code = 11214-0) 57.1 38.7-80.0 [facility] CenterAutomated blood lymphocyte count as percentage ot total fvqmasmiij6837-02-84 05:15:00* Test Item Value Reference Range Interpretation Comments Lymphocytes (%) (Auto) (test code = 736-9) 31.9 18.0-39.1 [facility] CenterAutomated blood monocyte count as percentage of total cruojrzipl6888-05-83 05:15:00* Test Item Value Reference Range Interpretation Comments Monocytes (%) (Auto) (test code = 5905-5) 7.8 4.4-11.3 [facility] CenterAutomated blood eosinophil count as percentage of total sqmkhxcvti4240-31-08 05:15:00* Test Item Value Reference Range Interpretation Comments Eosinophils (%) (Auto) (test code = 713-8) 2.2 0.0-6.0 [facility] CenterAutomated blood basophil count as percentage of total pgnoltqqua5092-51-44 05:15:00* Test Item Value Reference Range Interpretation Comments Basophils (%) (Auto) (test code = 706-2) 0.9 0.0-1.0 [facility] CenterFluoroscopic procedure less than one hour cviumtsx4726-89-46 05:15:00* Test Item Value Reference Range Interpretation Comments IM GRANULOCYTES % (test code = IM GRANULOCYTES %) 0.1 0.0- 1.0 [facility] CenterAutomated blood neutrophil count 2019-10-06 05:15:00* Test Item Value Reference Range Interpretation Comments Neutrophils # (Auto) (test code = 751-8) 4.5 2.1-6.9 [facility] CenterBlood lymphocytes count (number/volume) 2019-10-06 05:15:00* Test Item Value Reference Range Interpretation Comments Lymphocytes # (Auto) (test code = 21455-0) 2.5 1.0-3.2 [facility] CenterBlood monocytes automated count (number/volume)2019-10-06 05:15:00* Test Item Value Reference Range Interpretation Comments Monocytes # (Auto) (test code = 742-7) 0.6 0.2-0.8 [facility] CenterAutomated blood eosinophil count 2019-10-06 05:15:00* Test Item Value Reference Range Interpretation Comments Eosinophils # (Auto) (test code = 711-2) 0.2 0.0-0.4 [facility] CenterAutomated blood basophil count (count/volume)2019-10-06 05:15:00* Test Item Value Reference Range Interpretation Comments Basophils # (Auto) (test code = 704-7) 0.1 0.0-0.1 [facility] CenterFluoroscopic procedure less than one hour ocvvpovv6742-54-75 05:15:00* Test Item Value Reference Range Interpretation [...] [facility] anion pqj2335-28-61 05:15:00* Test Item Value Reference Range Interpretation Comments Anion Gap (test code = 49952-7) 10.4 8-16 [facility] [...] [place] Pasoerum or plasma urea nitrogen/creatinine mass vejaa3061-18-51 05:15:00* Test Item Value Reference Range Interpretation Comments BUN/Creatinine Ratio (test code = 3097-3) 5 6-25 [facility] CenterEstimated glomerular filtration rate (GFR) kcpyiqfdsbwcw9942-09-44 05:15:00* Test Item Value Reference Range Interpretation Comments Estimat Glomerular Filtration Rate (test code = 114745426) > 60 >60 Ranges were taken from the National Kidney Disease Education Program and the [facility] Kidney Foundation literature.Reference ranges:60 or greater: Zaiguv77-20 ( for 3 consecutive months): Chronic kidney disease 15 or less: Kidney failureCitizens Medical CenterGlucose cgdbuqnltef4487-99-82 05:15:00* Test Item Value Reference Range Interpretation Comments Glucose Level (test code = BFC1167) 202 74-118 [facility] Paso[facility]um or plasma calcium measurement (mass/volume)2019-10-06 05:15:00* Test Item Value Reference Range Interpretation Comments Calcium Level (test code = 99708-3) 8.7 8.4-10.2 [facility] CenterCapillary blood glucose measurement by glucometer (mass/volume)2019-10-05 19:48:00* Test Item Value Reference Range Interpretation Comments Bedside Glucose (test code = 35767-1) 233 70-120 Meter ID: [id number] [facility] SpringsUrine color tolvwmyyunnou1816-26-64 06:00:00* Test Item Value Reference Range Interpretation Comments Urine Color (test code = 5778-6) YELLOW YELLOW [facility] CenterUrine mslzjiq6469-33-08 06:00:00* Test Item Value Reference Range Interpretation Comments Urine Clarity (test code = 74470-6) CLEAR CLEAR [facility] Paso[facility] gravity of Urine by Test strip 2019-10-05 06:00:00* Test Item Value Reference Range Interpretation Comments Urine Specific [place] (test code = 5811-5) 1.020 1.010-1.02 5 [facility] CenterUrine pH measurement by automated test roqyc2285-06-57 06:00:00* Test Item Value Reference Range Interpretation Comments Urine pH (test code = 80726-9) 7.5 5-7 [facility] CenterUrine leukocyte esterase detection by atwljwow0456-30-36 06:00:00* Test Item Value Reference Range Interpretation Comments Urine Leukocyte Esterase (test code = 5799-2) NEGATIVE NEGATIVE [facility] CenterUrine nitrite jqdxhokuy9329-20-22 06:00:00* Test Item Value Reference Range Interpretation Comments Urine Nitrite (test code = 81267-4) NEGATIVE NEGATIVE [facility] CenterUrine protein measurement by test strip (mass/volume)2019-10-05 06:00:00* Test Item Value Reference Range Interpretation Comments Urine Protein (test code = 5804-0) NEGATIVE NEGATIVE [facility] CenterUrine glucose hoxhjasvc0920-17-84 06:00:00* Test Item Value Reference Range Interpretation Comments Urine Glucose (UA) (test code = 2349-9) 2+ NEGATIVE [facility] CenterUrine ketones detection by automated test kdckv2224-00-39 06:00:00* Test Item Value Reference Range Interpretation Comments Urine Ketones (test code = 72474-6) TRACE NEGATIVE [facility] CenterUrine opiates screening horf2122-32-35 06:00:00* Test Item Value Reference Range Interpretation Comments Urine Opiates Screen (test code = 07418-3) POSITIVE NEGATIVE This test provides only a screen. Positive results should be repeated by a confi rmatory test.[facility] CenterBarbiturates screen, urine 2019-10-05 06:00:00* Test Item Value Reference Range Interpretation Comments Urine Barbiturates Screen (test code = 179909910) NEGATIVE NEGA TIVE [facility] CenterUrine phencyclidine detection by screening phxfhy9536-09-66 06:00:00* Test Item Value Reference Range Interpretation Comments Urine Phencyclidine Screen (test code = 75233-2) NEGATIVE NEGAT [place] [facility] CenterUrine amphetamines detection by screen method > 1000 ng/nK6808-81-98 06:00:00* Test Item Value Reference Range Interpretation Comments Urine Amphetamines Screen (test code = 92594-2) NEGATIVE NEGATI VE [facility] CenterFluoroscopic procedure less than one hour vrcosulo6911-50-69 06:00:00* Test Item Value Reference Range Interpretation Comments Urine Methamphetamines Screen (test code = Urine Metha mphetamines Screen) NEGATIVE NEGATIVE [facility] CenterUrine benzodiazepines detection by screening iqmjal3058-33-35 06:00:00* Test Item Value Reference Range Interpretation Comments Urine Benzodiazepines Screen (test code = 15597-9) NEGATIVE NEG ATIVE [facility] CenterUrine cocaine measurement (mass/volume) 2019-10-05 06:00:00* Test Item Value Reference Range Interpretation Comments Urine Cocaine Screen (test code = 3398-5) NEGATIVE NEGATIVE [facility] CenterUrine cannabinoids detection by screening mnhbsj2422-86-88 06:00:00* Test Item Value Reference Range Interpretation Comments Urine Cannabinoids Screen (test code = 04131-4) POSITIVE NEGATI VE This test provides only a screen. Positive results should be repeated by a confi rmatory test.[facility] CenterUrine methadone screen 2019-10-05 06:00:00* Test Item Value Reference Range Interpretation Comments Urine Methadone Screen (test code = 90754-7) NEGATIVE NEGATIVE THESE RESULTS ARE FOR MEDICAL TREATMENT ONLYTHIS REPORT CONTAINS UNCONFIR MED SCREENING RESULTS*POSITIVE RESULTS WILL BE CONFIRMED BY REFERENCE LAB UPON R EQUEST CUT-OFFDRUG CLASS CONCENTRATION ng/mLAmphetamines 1000Methamphetamines 1000Cocaine Metabolite 300Opiate 300Phencyc lidine 25Cannabinoid 50Barbiturates 300Benzodiazepine 300Methadone 300[facility] CenterUrine urobilinogen measurement by test strip (mass/volume)2019-10-05 06:00:00* Test Item Value Reference Range Interpretation Comments Urine Urobilinogen (test code = 08994-2) 0.2 0.2-1 [facility] CenterUrine total bilirubin measurement (mass/volume)2019-10-05 06:00:00* Test Item Value Reference Range Interpretation Comments Urine Bilirubin (test code = 1978-6) NEGATIVE NEGATIVE [facility] CenterUrine erythrocytes kzdnwvkum0848-20-21 06:00:00* Test Item Value Reference Range Interpretation Comments Urine Blood (test code = 23913-9) TRACE NEGATIVE [facility] CenterAutomated urine sediment leukocyte count by microscopy (number/high power field)2019-10-05 06:00:00* Test Item Value Reference Range Interpretation Comments Urine WBC (test code = 5821-4) 0-5 0-5 [facility] CenterErythrocytes detection in urine sediment by light invzchfwkc4395-60-37 06:00:00* Test Item Value Reference Range Interpretation Comments Urine RBC (test code = 22127-8) 0-5 0-5 [facility] CenterBacteria detection in urine sediment by light bcdvqpebpx8736-57-97 06:00:00* Test Item Value Reference Range Interpretation Comments Urine Bacteria (test code = 85785-2) RARE NONE [facility] CenterEpithelial cells detection in urine sediment by light gvhwxmtkyi4455-73-12 06:00:00* Test Item Value Reference Range Interpretation Comments Urine Epithelial Cells (test code = 77473-2) RARE NONE [facility] CenterUrine color grxincfqalpgn9917-87-62 06:00:00* Test Item Value Reference Range Interpretation Comments Urine Color (test code = 5778-6) YELLOW YELLOW [facility] CenterUrine ebkeiyj3680-42-58 06:00:00* Test Item Value Reference Range Interpretation Comments Urine Clarity (test code = 76746-3) CLEAR CLEAR [facility] Pasopecific gravity of Urine by Test strip 2019-10-05 06:00:00* Test Item Value Reference Range Interpretation Comments Urine Specific [place] (test code = 5811-5) 1.020 1.010-1.02 5 [facility] CenterUrine pH measurement by automated test zrktn0675-37-69 06:00:00* Test Item Value Reference Range Interpretation Comments Urine pH (test code = 05204-3) 7.5 5-7 [facility] CenterUrine leukocyte esterase detection by vwuxdewi6986-89-87 06:00:00* Test Item Value Reference Range Interpretation Comments Urine Leukocyte Esterase (test code = 5799-2) NEGATIVE NEGATIVE [facility] CenterUrine nitrite dyyzymstt2681-26-54 06:00:00* Test Item Value Reference Range Interpretation Comments Urine Nitrite (test code = 77125-9) NEGATIVE NEGATIVE [facility] CenterUrine protein measurement by test strip (mass/volume)2019-10-05 06:00:00* Test Item Value Reference Range Interpretation Comments Urine Protein (test code = 5804-0) NEGATIVE NEGATIVE [facility] CenterUrine glucose uggwumyen3129-71-78 06:00:00* Test Item Value Reference Range Interpretation Comments Urine Glucose (UA) (test code = 2349-9) 2+ NEGATIVE [facility] CenterUrine ketones detection by automated test htvyw6571-14-84 06:00:00* Test Item Value Reference Range Interpretation Comments Urine Ketones (test code = 04780-0) TRACE NEGATIVE [facility] CenterUrine opiates screening vebl4034-51-64 06:00:00* Test Item Value Reference Range Interpretation Comments Urine Opiates Screen (test code = 74092-6) POSITIVE NEGATIVE This test provides only a screen. Positive results should be repeated by a confi rmatory test.[facility] CenterBarbiturates screen, urine 2019-10-05 06:00:00* Test Item Value Reference Range Interpretation Comments Urine Barbiturates Screen (test code = 332223832) NEGATIVE NEGA TIVE [facility] CenterUrine phencyclidine detection by screening wklqrh5920-34-35 06:00:00* Test Item Value Reference Range Interpretation Comments Urine Phencyclidine Screen (test code = 27398-4) NEGATIVE NEGAT [place] [facility] CenterUrine amphetamines detection by screen method > 1000 ng/qQ1527-78-79 06:00:00* Test Item Value Reference Range Interpretation Comments Urine Amphetamines Screen (test code = 80309-5) NEGATIVE NEGATI VE [facility] CenterFluoroscopic procedure less than one hour yllcdhrw8838-37-87 06:00:00* Test Item Value Reference Range Interpretation Comments Urine Methamphetamines Screen (test code = Urine Metha mphetamines Screen) NEGATIVE NEGATIVE [facility] CenterUrine benzodiazepines detection by screening dccvtm7917-32-66 06:00:00* Test Item Value Reference Range Interpretation Comments Urine Benzodiazepines Screen (test code = 74709-6) NEGATIVE NEG ATIVE [facility] CenterUrine cocaine measurement (mass/volume) 2019-10-05 06:00:00* Test Item Value Reference Range Interpretation Comments Urine Cocaine Screen (test code = 3398-5) NEGATIVE NEGATIVE [facility] CenterUrine cannabinoids detection by screening qeahgs1204-91-58 06:00:00* Test Item Value Reference Range Interpretation Comments Urine Cannabinoids Screen (test code = 52238-0) POSITIVE NEGATI VE This test provides only a screen. Positive results should be repeated by a confi rmatory test.[facility] CenterUrine methadone screen 2019-10-05 06:00:00* Test Item Value Reference Range Interpretation Comments Urine Methadone Screen (test code = 16386-8) NEGATIVE NEGATIVE THESE RESULTS ARE FOR MEDICAL TREATMENT ONLYTHIS REPORT CONTAINS UNCONFIR MED SCREENING RESULTS*POSITIVE RESULTS WILL BE CONFIRMED BY REFERENCE LAB UPON R EQUEST CUT-OFFDRUG CLASS CONCENTRATION ng/mLAmphetamines 1000Methamphetamines 1000Cocaine Metabolite 300Opiate 300Phencyc lidine 25Cannabinoid 50Barbiturates 300Benzodiazepine 300Methadone 300[facility] SpringsUrine urobilinogen measurement by test strip (mass/volume)2019-10-05 06:00:00* Test Item Value Reference Range Interpretation Comments Urine Urobilinogen (test code = 47195-8) 0.2 0.2-1 [facility] CenterUrine total bilirubin measurement (mass/volume)2019-10-05 06:00:00* Test Item Value Reference Range Interpretation Comments Urine Bilirubin (test code = 1978-6) NEGATIVE NEGATIVE [facility] CenterUrine erythrocytes wvwratbuy9071-01-02 06:00:00* Test Item Value Reference Range Interpretation Comments Urine Blood (test code = 98638-6) TRACE NEGATIVE [facility] CenterAutomated urine sediment leukocyte count by microscopy (number/high power field)2019-10-05 06:00:00* Test Item Value Reference Range Interpretation Comments Urine WBC (test code = 5821-4) 0-5 0-5 [facility] CenterErythrocytes detection in urine sediment by light ckofiasrek5798-71-64 06:00:00* Test Item Value Reference Range Interpretation Comments Urine RBC (test code = 73972-6) 0-5 0-5 [facility] CenterBacteria detection in urine sediment by light xkfaycfwxz1773-03-21 06:00:00* Test Item Value Reference Range Interpretation Comments Urine Bacteria (test code = 36403-5) RARE NONE [facility] CenterEpithelial cells detection in urine sediment by light mlcjsithoi5408-80-39 06:00:00* Test Item Value Reference Range Interpretation Comments Urine Epithelial Cells (test code = 36963-8) RARE NONE [facility] CenterProthrombin time (PT) in platelet poor plasma by coagulation cmxyr7650-17-66 05:08:00* Test Item Value Reference Range Interpretation Comments Prothrombin Time (test code = 5902-2) 13.4 11.9-14.5 [facility] CenterINR in Platelet poor plasma by Coagulation hlpbn4937-47-87 05:08:00* Test Item Value Reference Range Interpretation Comments Prothromb Time International Ratio (test code = 6301-6) 0.96 Oral Anticoagulant Therapy INR Values:1. Low Intensity Therapy 1.5 - 2.02 . Moderate Intensity Therapy 2.0 - 3.03. High Intensity Therapy(1) 2.5 - 3. 54. High Intensity Therapy(2) 3.0 - 4.05. Panic Value INR > 5.0 [facility] CenterProthrombin time (PT) in platelet poor plasma by coagulation fgepn9691-00-65 05:08:00* Test Item Value Reference Range Interpretation Comments Prothrombin Time (test code = 5902-2) 13.4 11.9-14.5 [facility] CenterINR in Platelet poor plasma by Coagulation idwiy9063-80-81 05:08:00* Test Item Value Reference Range Interpretation Comments Prothromb Time International Ratio (test code = 6301-6) 0.96 Oral Anticoagulant Therapy INR Values:1. Low Intensity Therapy 1.5 - 2.02 . Moderate Intensity Therapy 2.0 - 3.03. High Intensity Therapy(1) 2.5 - 3. 54. High Intensity Therapy(2) 3.0 - 4.05. Panic Value INR > 5.0 [facility] CenterCT ABDOMEN/PELVIS R5428-34-26 12:03:00 [facility] [address] [address] Patient Name: BREE LINDSAY MR #: [id number] : 1975 Age/Sex: 43/M Req #: [id number] Adm Physician: ISACC JAVED MD Ordered by: LU SADLER DO Rep ort #: [id number] Location: MED/SURG Room/B ed: 115-1 Procedure: [id number] CT/CT ABDOMEN/ PELVIS W Exam Date: 10/04/19 [...] Bilirubin (test code = 1975-2) 0.4 0.2-1.2 [facility] CenterFluoroscopic procedure less than one hour tblenrzq9244-31-75 06:25:00* Test Item Value Reference Range Interpretation [...] Albumin (test code = 1751-7) 3.9 3.5-5.0 [facility] CenterPlasma globulin measurement (mass/volume) 2019-10-04 06:25:00* Test Item Value Reference Range Interpretation Comments Globulin (test code = 37846-6) 3.3 2.3-3.5 [facility] Pasoerum or plasma albumin/globulin mass qawsy6189-80-22 06:25:00* Test Item Value Reference Range Interpretation Comments Albumin/Globulin Ratio (test code = 1759-0) 1.2 0.8-2.0 [facility] Pasoerum or plasma alkaline phosphatase measurement (enzymatic activity/volume)2019-10-04 06:25:00* Test Item Value Reference Range Interpretation Comments Alkaline Phosphatase (test code = 6768-6) 90 40-150 [facility] Pasoerum or plasma total bilirubin measurement (mass/volume)2019-10-04 06:25:00* Test Item Value Reference Range Interpretation Comments Total Bilirubin (test code = 1975-2) 0.4 0.2-1.2 [facility] CenterFluoroscopic procedure less than one hour ladayspa1615-79-98 06:25:00* Test Item Value Reference Range Interpretation [...] Albumin (test code = 1751-7) 3.9 3.5-5.0 [facility] CenterPlasma globulin measurement (mass/volume) 2019-10-04 06:25:00* Test Item Value Reference Range Interpretation Comments Globulin (test code = 21619-4) 3.3 2.3-3.5 [facility] Pasoerum or plasma albumin/globulin mass kqcdf9110-03-52 06:25:00* Test Item Value Reference Range Interpretation Comments Albumin/Globulin Ratio (test code = 1759-0) 1.2 0.8-2.0 [facility] Pasoerum or plasma alkaline phosphatase measurement (enzymatic activity/volume)2019-10-04 06:25:00* Test Item Value Reference Range Interpretation Comments Alkaline Phosphatase (test code = 6768-6) 90 40-150 [facility] CenterFluoroscopic procedure less than one hour bomumgot8012-05-84 01:50:00* Test Item Value Reference Range Interpretation [...] under 564(g) of the ACT.Testing performed by [facility] [place], [place] [address]OKPCitizens Medical CenterFluoroscopic procedure less than one hour duration 2019-10-04 01:50:00* Test Item Value Reference Range Interpretation [...] under 564(g) of the ACT.Testing performed by [address]/PELVIS C4314-38-53 12:40:00 [address] [address] Patient Name: BREE LINDSAY MR #: [id number] : 1975 Age/Sex: 43/M Req #: [id number] Adm Physician: Ordered by: STACIE FALLON, JEANNIE FALLON Report #: [id number] Location: [facility] marcus/Bed: Procedure: [id number] CT/CT ABD OMEN/PELVIS W Exam Date: 09/30/19 [...] lly Signed By: MAGGIE BRYAN MD on 09/30/191246 Transcribed By: SULAIMAN REY on 09/30/191246 COPY TO: JEANNIE QUINONES Prothrombin time (PT) in platelet poor plasma by coagulation jette2367-48-44 09:55:00* Test Item Value Reference Range Interpretation Comments Prothrombin Time (test code = 5902-2) 13.3 11.9-14.5 [facility] CenterINR in Platelet poor plasma by Coagulation gnljg9215-61-63 09:55:00* Test Item Value Reference Range Interpretation Comments Prothromb Time International Ratio (test code = 6301-6) 0.96 Oral Anticoagulant Therapy INR Values:1. Low Intensity Therapy 1.5 - 2.02 . Moderate Intensity Therapy 2.0 - 3.03. High Intensity Therapy(1) 2.5 - 3. 54. High Intensity Therapy(2) 3.0 - 4.05. Panic Value INR > 5.0 [facility] CenterActivated partial thromboplastin time (aPTT) in platelet poor plasma by coagulation zjfwf0630-15-75 09:55:00* Test Item Value Reference Range Interpretation Comments Activated Partial Thromboplast Time (test code = 73109-5) 26.1 23.8-35.5 [facility] [...] [facility] Paso[facility]um or plasma anion jfl3773-90-00 09:55:00* Test Item Value Reference Range Interpretation Comments Anion Gap (test code = 48663-2) 12.9 8-16 [facility] [...] [place] Pasoerum or plasma urea nitrogen/creatinine mass dvwfe5251-43-01 09:55:00* Test Item Value Reference Range Interpretation Comments BUN/Creatinine Ratio (test code = 3097-3) 11 6-25 [facility] CenterEstimated glomerular filtration rate (GFR) apevythjcljie6281-62-42 09:55:00* Test Item Value Reference Range Interpretation Comments Estimat Glomerular Filtration Rate (test code = 821072197) > 60 >60 Ranges were taken from the National Kidney Disease Education Program and the [facility] literature.Reference ranges:60 or greater: Mdagih43-55 ( for 3 consecutive months): Chronic kidney disease 15 or less: Kidney failureCitizens Medical CenterGlucose reqyrmimajb4584-11-58 09:55:00* Test Item Value Reference Range Interpretation Comments Glucose Level (test code = HBU9003) 328 74-118 [facility] or plasma calcium measurement (mass/volume)2019-09-30 09:55:00* Test Item Value Reference Range Interpretation Comments Calcium Level (test code = 80488-6) 8.8 8.4-10.2 [facility] CenterFluoroscopic procedure less than one hour vvstftjo8148-46-80 09:55:00* Test Item Value Reference Range Interpretation Comments Lactic Acid Level (test code = Lactic Acid Level) 1.0 0.5- 2.0 [facility] or plasma total bilirubin measurement (mass/volume)2019-09-30 09:55:00* Test Item Value Reference Range Interpretation Comments Total Bilirubin (test code = 1975-2) 0.5 0.2-1.2 [facility] CenterFluoroscopic procedure less than one hour hudmbyya4849-24-61 09:55:00* Test Item Value Reference Range Interpretation [...] Albumin (test code = 1751-7) 3.4 3.5-5.0 [facility] CenterPlasma globulin measurement (mass/volume) 2019-09-30 09:55:00* Test Item Value Reference Range Interpretation Comments Globulin (test code = 30796-1) 3.0 2.3-3.5 [facility] or plasma albumin/globulin mass tsswf0014-22-63 09:55:00* Test Item Value Reference Range Interpretation [...] Comments Creatine Kinase MB (test code = 91816-2) 1.50 0-5.0 [facility] CenterTroponin I measurement by highly sensitive enzyme uswgdeyayrv0478-07-33 09:55:00* Test Item Value Reference Range Interpretation Comments Troponin I (test code = 17863-1) 0.001 0-0.300 [facility] or plasma amylase measurement (enzymatic activity/volume)2019-09-30 09:55:00* Test Item Value Reference Range Interpretation Comments Amylase Level (test code = 1798-8) 49 25-125 [facility]erum or plasma lipase measurement (enzymatic activity/volume)2019-09-30 09:55:00* Test Item Value Reference Range Interpretation Comments Lipase (test code = 3040-3) < 4 8-78 [facility] CenterActivated partial thromboplastin time (aPTT) in platelet poor plasma by coagulation pitks8903-83-69 09:55:00* Test Item Value Reference Range Interpretation Comments Activated Partial Thromboplast Time (test code = 99872-0) 26.1 23.8-35.5 [facility] CenterFluoroscopic procedure less than one hour camezhgi1345-01-33 09:55:00* Test Item Value Reference Range Interpretation [...] Comments Creatine Kinase MB (test code = 55558-1) 1.50 0-5.0 [facility] CenterTroponin I measurement by highly sensitive enzyme ravhamzfqgu8800-13-57 09:55:00* Test Item Value Reference Range Interpretation Comments Troponin I (test code = 50711-9) 0.001 0-0.300 [facility] or plasma amylase measurement (enzymatic activity/volume)2019-09-30 09:55:00* Test Item Value Reference Range Interpretation Comments Amylase Level (test code = 1798-8) 49 25-125 [facility]erum or plasma lipase measurement (enzymatic activity/volume)2019-09-30 09:55:00* Test Item Value Reference Range Interpretation Comments Lipase (test code = 3040-3) < 4 8-78 [facility] CenterActivated partial thromboplastin time (aPTT) in platelet poor plasma by coagulation owzwx8458-74-96 09:55:00* Test Item Value Reference Range Interpretation Comments Activated Partial Thromboplast Time (test code = 71445-1) 26.1 23.8-35.5 [facility] CenterFluoroscopic procedure less than one hour epxxarkq8430-87-75 09:55:00* Test Item Value Reference Range Interpretation [...] Comments Creatine Kinase MB (test code = 34802-5) 1.50 0-5.0 [facility] CenterTroponin I measurement by highly sensitive enzyme puoieiedxkn1272-91-87 09:55:00* Test Item Value Reference Range Interpretation Comments Troponin I (test code = 42223-5) 0.001 0-0.300 [facility]um or plasma amylase measurement (enzymatic activity/volume)2019-09-30 09:55:00* Test Item Value Reference Range Interpretation Comments Amylase Level (test code = 1798-8) 49 25-125 [facility] CenterCHES SINGLE (PORTABLE)2019-09-30 09:23:00 [facility] [address] [address] Patient Name: BREE LINDSAY MR #: [id number] : 1975 Age/Sex: 43/M Req #: [id number] Adm Physician: Ordered by: JEANNIE QUINONES MD, MD Report #: [id number] Location: ER Room/Bed: Procedure: [id number] DX/CHEST SINGLE (PORTABLE) Exam Date: 09/30/19 Exam Time: 083 5 REPORT STATUS: Signed EXAMINAT ION: CHEST SINGLE (PORTABLE) INDICATION: ERMD ORDER [id number] Y COMPARISON: Chest radiograph 07/23/2019, [...] Count (test code = 6690-2) 9.64 4.8-10.8 [facility] CenterBlood erythrocytes automated count (number/volume)2019-09-30 09:10:00* Test Item Value Reference Range Interpretation Comments Red Blood Count (test code = 789-8) 3.70 4.3-5.7 [facility] CenterBlood hemoglobin measurement (moles/volume)2019-09-30 09:10:00* Test Item Value Reference Range Interpretation Comments Hemoglobin (test code = 77944-7) 10.4 14.0-18.0 [facility] CenterAutomated blood hematocrit (volume fraction)2019-09-30 09:10:00* Test Item Value Reference Range Interpretation Comments Hematocrit (test code = 4544-3) 32.9 38.2-49.6 [facility] CenterAutomated erythrocyte mean corpuscular lvfurq4867-80-73 09:10:00* Test Item Value Reference Range Interpretation Comments Mean Corpuscular Volume (test code = 787-2) 88.9 81-99 [facility] CenterAutomated erythrocyte mean corpuscular hemoglobin (mass per erythrocyte)2019-09-30 09:10:00* Test Item Value Reference Range Interpretation Comments Mean Corpuscular Hemoglobin (test code = 785-6) 28.1 28-32 [facility] CenterAutomated erythrocyte mean corpuscular hemoglobin concentration measurement (mass/volume)2019-09-30 09:10:00* Test Item Value Reference Range Interpretation Comments Mean Corpuscular Hemoglobin Concent (test code = 786-4) 31.6 31-35 [facility] CenterRDW PftXo-Ipi8623-56-03 09:10:00* Test Item Value Reference Range Interpretation Comments Red Cell Distribution Width (test code = 68310-3) 14.0 11.7 -14.4 [facility] CenterAutomated blood platelet count (count/volume)2019-09-30 09:10:00* Test Item Value Reference Range Interpretation Comments Platelet Count (test code = 777-3) 263 140-360 [facility] CenterAutomated blood segmented neutrophil count as percentage of total yyrzmogink8564-83-16 09:10:00* Test Item Value Reference Range Interpretation Comments Neutrophils (%) (Auto) (test code = 28249-7) 80.4 38.7-80.0 [facility] CenterAutomated blood lymphocyte count as percentage ot total vnjsbdxqzk0777-98-51 09:10:00* Test Item Value Reference Range Interpretation Comments Lymphocytes (%) (Auto) (test code = 736-9) 11.5 18.0-39.1 [facility] CenterAutomated blood monocyte count as percentage of total ebvimiayhe5055-38-74 09:10:00* Test Item Value Reference Range Interpretation Comments Monocytes (%) (Auto) (test code = 5905-5) 6.3 4.4-11.3 [facility] CenterAutomated blood eosinophil count as percentage of total nzzxcfepem3224-06-88 09:10:00* Test Item Value Reference Range Interpretation Comments Eosinophils (%) (Auto) (test code = 713-8) 0.7 0.0-6.0 [facility] CenterAutomated blood basophil count as percentage of total gpdfeetizy4471-58-71 09:10:00* Test Item Value Reference Range Interpretation Comments Basophils (%) (Auto) (test code = 706-2) 0.8 0.0-1.0 [facility] CenterFluoroscopic procedure less than one hour ssbspaij0755-10-53 09:10:00* Test Item Value Reference Range Interpretation Comments IM GRANULOCYTES % (test code = IM GRANULOCYTES %) 0.3 0.0- 1.0 [facility] CenterAutomated blood neutrophil count 2019-09-30 09:10:00* Test Item Value Reference Range Interpretation Comments Neutrophils # (Auto) (test code = 751-8) 7.7 2.1-6.9 [facility] CenterBlood lymphocytes count (number/volume) 2019-09-30 09:10:00* Test Item Value Reference Range Interpretation Comments Lymphocytes # (Auto) (test code = 43117-0) 1.1 1.0-3.2 [facility] CenterBlood monocytes automated count (number/volume)2019-09-30 09:10:00* Test Item Value Reference Range Interpretation Comments Monocytes # (Auto) (test code = 742-7) 0.6 0.2-0.8 [facility] CenterAutomated blood eosinophil count 2019-09-30 09:10:00* Test Item Value Reference Range Interpretation Comments Eosinophils # (Auto) (test code = 711-2) 0.1 0.0-0.4 [facility] CenterAutomated blood basophil count (count/volume)2019-09-30 09:10:00* Test Item Value Reference Range Interpretation Comments Basophils # (Auto) (test code = 704-7) 0.1 0.0-0.1 [facility] CenterFluoroscopic procedure less than one hour sieojgle3382-44-65 09:10:00* Test Item Value Reference Range Interpretation Comments Absolute Immature Granulocyte (auto (zeenat t code = Absolute Immature Granulocyte (auto) 0.03 0-0.1 [facility] ruwxiss9817-25-06 09:10:00* Test Item Value Reference Range Interpretation Comments Blood Culture (test code = 29634417) NO GROWTH AFTER 5 DAYS, FINAL REPORT [facility] ngguqor3214-31-63 09:10:00* Test Item Value Reference Range Interpretation Comments Blood Culture (test code = 04229594) NO GROWTH AFTER 5 DAYS, FINAL REPORT [facility] CenterUrine color kzxjwcayyyjvv8378-08-09 08:44:00* Test Item Value Reference Range Interpretation Comments Urine Color (test code = 5778-6) YELLOW YELLOW [facility] CenterUrine ztykhpe4317-85-49 08:44:00* Test Item Value Reference Range Interpretation Comments Urine Clarity (test code = 08479-8) CLEAR CLEAR [facility] Pasopecific gravity of Urine by Test strip 2019-09-30 08:44:00* Test Item Value Reference Range Interpretation Comments Urine Specific [place] (test code = 5811-5) 1.025 1.010-1.02 5 [facility] CenterUrine pH measurement by automated test xokzd5790-37-89 08:44:00* Test Item Value Reference Range Interpretation Comments Urine pH (test code = 19923-9) 7 5-7 [facility] CenterUrine leukocyte esterase detection by nqkyjwuz3174-85-05 08:44:00* Test Item Value Reference Range Interpretation Comments Urine Leukocyte Esterase (test code = 5799-2) NEGATIVE NEGATIVE [facility] CenterUrine nitrite sceycklvr3779-62-43 08:44:00* Test Item Value Reference Range Interpretation Comments Urine Nitrite (test code = 34752-3) NEGATIVE NEGATIVE [facility] CenterUrine protein measurement by test strip (mass/volume)2019-09-30 08:44:00* Test Item Value Reference Range Interpretation Comments Urine Protein (test code = 5804-0) 1+ NEGATIVE [facility] CenterUrine glucose xgppumcjk4527-44-32 08:44:00* Test Item Value Reference Range Interpretation Comments Urine Glucose (UA) (test code = 2349-9) 2+ NEGATIVE [facility] CenterUrine ketones detection by automated test ldddh1899-50-23 08:44:00* Test Item Value Reference Range Interpretation Comments Urine Ketones (test code = 50953-0) 2+ NEGATIVE [facility] CenterUrine opiates screening qhsj9857-55-70 08:44:00* Test Item Value Reference Range Interpretation Comments Urine Opiates Screen (test code = 29591-9) POSITIVE NEGATIVE This test provides only a screen. Positive results should be repeated by a confi rmatory test.[facility] CenterBarbiturates screen, urine 2019-09-30 08:44:00* Test Item Value Reference Range Interpretation Comments Urine Barbiturates Screen (test code = 663809424) NEGATIVE NEGA TIVE [facility] CenterUrine phencyclidine detection by screening bbghjl6169-07-94 08:44:00* Test Item Value Reference Range Interpretation Comments Urine Phencyclidine Screen (test code = 19835-3) NEGATIVE NEGAT [place] [facility] CenterUrine amphetamines detection by screen method > 1000 ng/wG1929-24-01 08:44:00* Test Item Value Reference Range Interpretation Comments Urine Amphetamines Screen (test code = 36768-3) NEGATIVE NEGATI VE [facility] CenterFluoroscopic procedure less than one hour xxzguujc3949-09-28 08:44:00* Test Item Value Reference Range Interpretation Comments Urine Methamphetamines Screen (test code = Urine Metha mphetamines Screen) NEGATIVE NEGATIVE [facility] CenterUrine benzodiazepines detection by screening odwtcp4847-96-20 08:44:00* Test Item Value Reference Range Interpretation Comments Urine Benzodiazepines Screen (test code = 30270-1) POSITIVE NEG ATIVE This test provides only a screen. Positive results should be repeated by a confi rmatory test.[facility] CenterUrine cocaine measurement (mass/volume)2019-09-30 08:44:00* Test Item Value Reference Range Interpretation Comments Urine Cocaine Screen (test code = 3398-5) NEGATIVE NEGATIVE [facility] CenterUrine cannabinoids detection by screening xrkkxi6953-32-98 08:44:00* Test Item Value Reference Range Interpretation Comments Urine Cannabinoids Screen (test code = 93182-5) POSITIVE NEGATI VE This test provides only a screen. Positive results should be repeated by a confi rmatory test.[facility] CenterUrine methadone screen 2019-09-30 08:44:00* Test Item Value Reference Range Interpretation Comments Urine Methadone Screen (test code = 64837-3) NEGATIVE NEGATIVE THESE RESULTS ARE FOR MEDICAL TREATMENT ONLYTHIS REPORT CONTAINS UNCONFIR MED SCREENING RESULTS*POSITIVE RESULTS WILL BE CONFIRMED BY REFERENCE LAB UPON R EQUEST CUT-OFFDRUG CLASS CONCENTRATION ng/mLAmphetamines 1000Methamphetamines 1000Cocaine Metabolite 300Opiate 300Phencyc lidine 25Cannabinoid 50Barbiturates 300Benzodiazepine 300Methadone 300[facility] SpringsUrine urobilinogen measurement by test strip (mass/volume)2019-09-30 08:44:00* Test Item Value Reference Range Interpretation Comments Urine Urobilinogen (test code = 96551-2) 0.2 0.2-1 [facility] CenterUrine total bilirubin measurement (mass/volume)2019-09-30 08:44:00* Test Item Value Reference Range Interpretation Comments Urine Bilirubin (test code = 1978-6) NEGATIVE NEGATIVE [facility] CenterUrine erythrocytes kmyfofjai1238-11-09 08:44:00* Test Item Value Reference Range Interpretation Comments Urine Blood (test code = 22908-2) TRACE NEGATIVE [facility] CenterAutomated urine sediment leukocyte count by microscopy (number/high power field)2019-09-30 08:44:00* Test Item Value Reference Range Interpretation Comments Urine WBC (test code = 5821-4) 21-50 0-5 [facility] CenterErythrocytes detection in urine sediment by light gqynikbehh5410-98-80 08:44:00* Test Item Value Reference Range Interpretation Comments Urine RBC (test code = 58542-3) 6-10 0-5 [facility] CenterBacteria detection in urine sediment by light ykttnhxpnr7226-01-29 08:44:00* Test Item Value Reference Range Interpretation Comments Urine Bacteria (test code = 25458-3) FEW NONE [facility] CenterEpithelial cells detection in urine sediment by light zqtgubzkxa0356-84-73 08:44:00* Test Item Value Reference Range Interpretation Comments Urine Epithelial Cells (test code = 21435-1) RARE NONE [facility] CenterCapillary blood glucose measurement by glucometer (mass/volume)2019-09-24 07:23:00* Test Item Value Reference Range Interpretation Comments Bedside Glucose (test code = 60920-4) 83 70-120 Meter ID: [id number] Medical CenterCapillary blood glucose measurement by glucometer (mass/volume)2019-09-24 07:23:00* Test Item Value Reference Range Interpretation Comments Bedside Glucose (test code = 38256-4) 83 70-120 Meter ID: [id number] Medical CenterCapillary blood glucose measurement by glucometer (mass/volume)2019-09-24 07:23:00* Test Item Value Reference Range Interpretation Comments Bedside Glucose (test code = 92245-0) 83 70-120 Meter ID: [id number] Medical CenterTroponin I measurement by highly sensitive enzyme cmozyajadxa5614-39-39 09:58:00* Test Item Value Reference Range Interpretation Comments Troponin I (test code = 58938-6) 0.016 0-0.300 [facility] CenterTroponin I measurement by highly sensitive enzyme fwpfepsxyug9128-91-78 09:58:00* Test Item Value Reference Range Interpretation Comments Troponin I (test code = 42758-4) 0.016 0-0.300 [facility] CenterBlmer[facility] leukocytes automated count (number/volume)2019-09-23 05:42:00* Test Item Value Reference Range Interpretation Comments White Blood Count (test code = 6690-2) 8.62 4.8-10.8 [facility] erythrocytes automated count (number/volume)2019-09-23 05:42:00* Test Item Value Reference Range Interpretation Comments Red Blood Count (test code = 789-8) 3.57 4.3-5.7 [facility] Springsood hemoglobin measurement (moles/volume)2019-09-23 05:42:00* Test Item Value Reference Range Interpretation Comments Hemoglobin (test code = 62416-7) 10.3 14.0-18.0 [facility] CenterAutomated blood hematocrit (volume fraction)2019-09-23 05:42:00* Test Item Value Reference Range Interpretation Comments Hematocrit (test code = 4544-3) 32.2 38.2-49.6 [facility] CenterAutomated erythrocyte mean corpuscular rhnlgf1235-08-80 05:42:00* Test Item Value Reference Range Interpretation Comments Mean Corpuscular Volume (test code = 787-2) 90.2 81-99 [facility] CenterAutomated erythrocyte mean corpuscular hemoglobin (mass per erythrocyte)2019-09-23 05:42:00* Test Item Value Reference Range Interpretation Comments Mean Corpuscular Hemoglobin (test code = 785-6) 28.9 28-32 [facility] CenterAutomated erythrocyte mean corpuscular hemoglobin concentration measurement (mass/volume)2019-09-23 05:42:00* Test Item Value Reference Range Interpretation Comments Mean Corpuscular Hemoglobin Concent (test code = 786-4) 32.0 31-35 [facility] CenterRDW QidQq-Mkd2516-33-26 05:42:00* Test Item Value Reference Range Interpretation Comments Red Cell Distribution Width (test code = 85608-2) 13.7 11.7 -14.4 [facility] CenterAutomated blood platelet count (count/volume)2019-09-23 05:42:00* Test Item Value Reference Range Interpretation Comments Platelet Count (test code = 777-3) 183 140-360 [facility] CenterAutomated blood segmented neutrophil count as percentage of total exegdxwsal5588-73-84 05:42:00* Test Item Value Reference Range Interpretation Comments Neutrophils (%) (Auto) (test code = 46924-8) 78.4 38.7-80.0 [facility] CenterAutomated blood lymphocyte count as percentage ot total qiuscnmchf2664-07-01 05:42:00* Test Item Value Reference Range Interpretation Comments Lymphocytes (%) (Auto) (test code = 736-9) 13.1 18.0-39.1 [facility] CenterAutomated blood monocyte count as percentage of total otmhxzpxtv4938-96-49 05:42:00* Test Item Value Reference Range Interpretation Comments Monocytes (%) (Auto) (test code = 5905-5) 7.7 4.4-11.3 [facility] CenterAutomated blood eosinophil count as percentage of total fmktjfjtuo7173-30-45 05:42:00* Test Item Value Reference Range Interpretation Comments Eosinophils (%) (Auto) (test code = 713-8) 0.1 0.0-6.0 [facility] CenterAutomated blood basophil count as percentage of total eeijyajcqg2893-04-31 05:42:00* Test Item Value Reference Range Interpretation Comments Basophils (%) (Auto) (test code = 706-2) 0.5 0.0-1.0 [facility] CenterFluoroscopic procedure less than one hour jwrhdrqb1693-78-72 05:42:00* Test Item Value Reference Range Interpretation Comments IM GRANULOCYTES % (test code = IM GRANULOCYTES %) 0.2 0.0- 1.0 [facility] CenterAutomated blood neutrophil count 2019-09-23 05:42:00* Test Item Value Reference Range Interpretation Comments Neutrophils # (Auto) (test code = 751-8) 6.8 2.1-6.9 [facility] CenterBlood lymphocytes count (number/volume) 2019-09-23 05:42:00* Test Item Value Reference Range Interpretation Comments Lymphocytes # (Auto) (test code = 61763-0) 1.1 1.0-3.2 [facility] CenterBlmer[facility] monocytes automated count (number/volume)2019-09-23 05:42:00* Test Item Value Reference Range Interpretation Comments Monocytes # (Auto) (test code = 742-7) 0.7 0.2-0.8 [facility] CenterAutomated blood eosinophil count 2019-09-23 05:42:00* Test Item Value Reference Range Interpretation Comments Eosinophils # (Auto) (test code = 711-2) 0.0 0.0-0.4 [facility] CenterAutomated blood basophil count (count/volume)2019-09-23 05:42:00* Test Item Value Reference Range Interpretation Comments Basophils # (Auto) (test code = 704-7) 0.0 0.0-0.1 [facility] CenterFluoroscopic procedure less than one hour sxlbdamm0869-48-05 05:42:00* Test Item Value Reference Range Interpretation [...] [facility] anion iej4683-19-12 05:42:00* Test Item Value Reference Range Interpretation Comments Anion Gap (test code = 64706-1) 12.6 8-16 [facility] [...] [place] Pasoerum or plasma urea nitrogen/creatinine mass fgevd1394-94-15 05:42:00* Test Item Value Reference Range Interpretation Comments BUN/Creatinine Ratio (test code = 3097-3) 19 6-25 [facility] CenterEstimated glomerular filtration rate (GFR) lklikofvomqif4689-70-22 05:42:00* Test Item Value Reference Range Interpretation Comments Estimat Glomerular Filtration Rate (test code = 763858026) > 60 >60 Ranges were taken from the National Kidney Disease Education Program and the [facility] Kidney Foundation literature.Reference ranges:60 or greater: Kmtrio85-19 ( for 3 consecutive months): Chronic kidney disease 15 or less: Kidney failureCitizens Medical CenterGlucose fmbofjnqmia5878-28-95 05:42:00* Test Item Value Reference Range Interpretation Comments Glucose Level (test code = RZR1333) 266 74-118 [facility] Pasoerum or plasma calcium measurement (mass/volume)2019-09-23 05:42:00* Test Item Value Reference Range Interpretation Comments Calcium Level (test code = 74830-4) 8.3 8.4-10.2 [facility]erum or plasma total bilirubin measurement (mass/volume)2019-09-23 05:42:00* Test Item Value Reference Range Interpretation Comments Total Bilirubin (test code = 1975-2) 0.4 0.2-1.2 [facility] CenterFluoroscopic procedure less than one hour iqpvagbp9820-27-18 05:42:00* Test Item Value Reference Range Interpretation [...] Albumin (test code = 1751-7) 3.4 3.5-5.0 [facility] CenterPlasma globulin measurement (mass/volume) 2019-09-23 05:42:00* Test Item Value Reference Range Interpretation Comments Globulin (test code = 78389-3) 2.8 2.3-3.5 [facility]um or plasma albumin/globulin mass qjaqj1001-84-92 05:42:00* Test Item Value Reference Range Interpretation Comments Albumin/Globulin Ratio (test code = 1759-0) 1.2 0.8-2.0 [facility]er[facility] or plasma alkaline phosphatase measurement (enzymatic activity/volume)2019-09-23 05:42:00* Test Item Value Reference Range Interpretation Comments Alkaline Phosphatase (test code = 6768-6) 108 40-150 [facility] CenterBlood leukocytes automated count (number/volume)2019-09-23 05:42:00* Test Item Value Reference Range Interpretation Comments White Blood Count (test code = 6690-2) 8.62 4.8-10.8 [facility] CenterBlmer[facility] erythrocytes automated count (number/volume)2019-09-23 05:42:00* Test Item Value Reference Range Interpretation Comments Red Blood Count (test code = 789-8) 3.57 4.3-5.7 [facility] CenterBlood hemoglobin measurement (moles/volume)2019-09-23 05:42:00* Test Item Value Reference Range Interpretation Comments Hemoglobin (test code = 53908-0) 10.3 14.0-18.0 [facility] CenterAutomated blood hematocrit (volume fraction)2019-09-23 05:42:00* Test Item Value Reference Range Interpretation Comments Hematocrit (test code = 4544-3) 32.2 38.2-49.6 [facility] CenterAutomated erythrocyte mean corpuscular kqmmsm6196-25-93 05:42:00* Test Item Value Reference Range Interpretation Comments Mean Corpuscular Volume (test code = 787-2) 90.2 81-99 [facility] CenterAutomated erythrocyte mean corpuscular hemoglobin (mass per erythrocyte)2019-09-23 05:42:00* Test Item Value Reference Range Interpretation Comments Mean Corpuscular Hemoglobin (test code = 785-6) 28.9 28-32 [facility] [facility] CenterAutomated erythrocyte mean corpuscular hemoglobin concentration measurement (mass/volume)2019-09-23 05:42:00* Test Item Value Reference Range Interpretation Comments Mean Corpuscular Hemoglobin Concent (test code = 786-4) 32.0 31-35 [facility] CenterRDW PckLv-Cng1425-44-26 05:42:00* Test Item Value Reference Range Interpretation Comments Red Cell Distribution Width (test code = 14814-3) 13.7 11.7 -14.4 [facility] CenterAutomated blood platelet count (count/volume)2019-09-23 05:42:00* Test Item Value Reference Range Interpretation Comments Platelet Count (test code = 777-3) 183 140-360 [facility] CenterAutomated blood segmented neutrophil count as percentage of total lmrnbmgdqp9599-61-22 05:42:00* Test Item Value Reference Range Interpretation Comments Neutrophils (%) (Auto) (test code = 16070-0) 78.4 38.7-80.0 [facility] CenterAutomated blood lymphocyte count as percentage ot total ipraxdmuoo4655-03-36 05:42:00* Test Item Value Reference Range Interpretation Comments Lymphocytes (%) (Auto) (test code = 736-9) 13.1 18.0-39.1 [facility] CenterAutomated blood monocyte count as percentage of total ihixguwzmw6960-21-06 05:42:00* Test Item Value Reference Range Interpretation Comments Monocytes (%) (Auto) (test code = 5905-5) 7.7 4.4-11.3 [facility] CenterAutomated blood eosinophil count as percentage of total ogwgqaxils8976-97-12 05:42:00* Test Item Value Reference Range Interpretation Comments Eosinophils (%) (Auto) (test code = 713-8) 0.1 0.0-6.0 [facility] CenterAutomated blood basophil count as percentage of total omhdmirvjr8039-92-62 05:42:00* Test Item Value Reference Range Interpretation Comments Basophils (%) (Auto) (test code = 706-2) 0.5 0.0-1.0 [facility] CenterFluoroscopic procedure less than one hour fefmcwxg7349-75-65 05:42:00* Test Item Value Reference Range Interpretation Comments IM GRANULOCYTES % (test code = IM GRANULOCYTES %) 0.2 0.0- 1.0 [facility] CenterAutomated blood neutrophil count 2019-09-23 05:42:00* Test Item Value Reference Range Interpretation Comments Neutrophils # (Auto) (test code = 751-8) 6.8 2.1-6.9 [facility] CenterBlood lymphocytes count (number/volume) 2019-09-23 05:42:00* Test Item Value Reference Range Interpretation Comments Lymphocytes # (Auto) (test code = 23523-5) 1.1 1.0-3.2 [facility] CenterBlood monocytes automated count (number/volume)2019-09-23 05:42:00* Test Item Value Reference Range Interpretation Comments Monocytes # (Auto) (test code = 742-7) 0.7 0.2-0.8 [facility] CenterAutomated blood eosinophil count 2019-09-23 05:42:00* Test Item Value Reference Range Interpretation Comments Eosinophils # (Auto) (test code = 711-2) 0.0 0.0-0.4 [facility] CenterAutomated blood basophil count (count/volume)2019-09-23 05:42:00* Test Item Value Reference Range Interpretation Comments Basophils # (Auto) (test code = 704-7) 0.0 0.0-0.1 [facility] CenterFluoroscopic procedure less than one hour zeyrmjui9690-37-95 05:42:00* Test Item Value Reference Range Interpretation [...] [facility] ash8894-27-71 05:42:00* Test Item Value Reference Range Interpretation Comments Anion Gap (test code = 00082-8) 12.6 8-16 [facility] [...] [place]erum or plasma urea nitrogen/creatinine mass mfkxw4378-07-85 05:42:00* Test Item Value Reference Range Interpretation Comments BUN/Creatinine Ratio (test code = 3097-3) 19 6- [facility] CenterEstimated glomerular filtration rate (GFR) zjnymqgsuspzf5717-61-38 05:42:00* Test Item Value Reference Range Interpretation Comments Estimat Glomerular Filtration Rate (test code = 242334808) > 60 >60 Ranges were taken from the National Kidney Disease Education Program and the [facility] Kidney Foundation literature.Reference ranges:60 or greater: Dpdkbi97-92 ( for 3 consecutive months): Chronic kidney disease 15 or less: Kidney failureCitizens Medical CenterGlucose zzooegcpznd1617-95-61 05:42:00* Test Item Value Reference Range Interpretation Comments Glucose Level (test code = JTL7387) 266 74-118 [facility] or plasma calcium measurement (mass/volume)2019-09-23 05:42:00* Test Item Value Reference Range Interpretation Comments Calcium Level (test code = 35192-9) 8.3 8.4-10.2 [facility] plasma total bilirubin measurement (mass/volume)2019-09-23 05:42:00* Test Item Value Reference Range Interpretation Comments Total Bilirubin (test code = 1975-2) 0.4 0.2-1.2 [facility] CenterFluoroscopic procedure less than one hour vmamdgoc3902-51-05 05:42:00* Test Item Value Reference Range Interpretation [...] Albumin (test code = 1751-7) 3.4 3.5-5.0 [facility] CenterPlasma globulin measurement (mass/volume) 2019-09-23 05:42:00* Test Item Value Reference Range Interpretation Comments Globulin (test code = 23883-7) 2.8 2.3-3.5 [facility] plasma albumin/globulin mass hdotz2840-90-02 05:42:00* Test Item Value Reference Range Interpretation Comments Albumin/Globulin Ratio (test code = 1759-0) 1.2 0.8-2.0 [facility] or plasma alkaline phosphatase measurement (enzymatic activity/volume)2019-09-23 05:42:00* Test Item Value Reference Range Interpretation Comments Alkaline Phosphatase (test code = 6768-6) 108 40-150 [facility] CenterABDOMEN-1VIEW (KUB)2019-09-22 13:59:00 [facility] [address] [place] [address] Patient Name: BREE LINDSAY MR #: [id number] : 1975 Age/Sex: 43/M Req #: [id number] Adm Physician: RUSLAN CARTER MD Ordered by: RUSLAN CARTER MD Re port #: [id number] Location: MED/SURG3 Room/ Bed: [facility] Procedure: [id number] DX/ABDOMEN-1V IEW (KUB) Exam Date: 09/22/19 Exam [...] By: PAULA on 09/21 1400 COPY TO: URSLAN CARTER MD Capillary blood glucose measurement by glucometer (mass/volume)2019-08-25 11:40:00* Test Item Value Reference Range Interpretation Comments Bedside Glucose (test code = 41020-8) 179 70-120 Meter ID: [id number] [facility] SpringsCap[facility] blood glucose measurement by glucometer (mass/volume)2019-08-25 11:40:00* Test Item Value Reference Range Interpretation Comments Bedside Glucose (test code = 95779-1) 179 70-120 Meter ID: [id number] [facility] SpringsFluoroscopic procedure less than one hour jeatkorh8171-70-29 13:20:00* Test Item Value Reference Range Interpretation [...] complexity tests.Testing performed by [facility] [address] [place], [place] [phone] Director: Yuri Perry M.D.TIFFANY # [id number] [facility] Fluoroscopic procedure less than one hour fbzmrcmq3423-23-30 13:20:00* Test Item Value Reference Range Interpretation [...] complexity tests.Testing performed by [facility] [address]chkgrb[address] [place], [place] [phone] Director: Yuri Perry M.D.CLIA # [id number] [facility] Fluoroscopic procedure less than one hour ugsbgiyf5692-88-99 13:20:00* Test Item Value Reference Range Interpretation [...] complexity tests.Testing performed by [facility] [address]mkm[address] [place], [place] [phone] Director: Yuri Perry M.D.CLIA # [id number] [facility] Fluoroscopic procedure less than one hour xjwkiecv8170-99-75 13:20:00* Test Item Value Reference Range Interpretation [...] [facility]ology Laboratories are certified under the C karman[facility] cancer centerical Laboratory Improvement Amendments of 1988 (CLIA), 42 U.S.C. section 263a , to perform high complexity tests.Testing performed by [facility] [address] [place], [place] [phone] Director: Yuri Perry M.D.CLIA # [id number] [facility] Fluoroscopic procedure less than one hour arficqta3798-18-37 13:20:00* Test Item Value Reference Range Interpretation [...] complexity tests.Testing performed by [facility] [address] [phone] Director: Yuri Perry M.D.CLIA # [id number] Medical Center Capillary blood glucose measurement by glucometer (mass/volume)2019-07-24 11:15:00* Test Item Value Reference Range Interpretation Comments Bedside Glucose (test code = 59942-8) 145 70-120 Meter ID: [id number] [facility] SpringsBlood leukocytes automated count (number/volume)2019-07-24 06:10:00* Test Item Value Reference Range Interpretation Comments White Blood Count (test code = 6690-2) 6.43 4.8-10.8 [facility] CenterBlood erythrocytes automated count (number/volume)2019-07-24 06:10:00* Test Item Value Reference Range Interpretation Comments Red Blood Count (test code = 789-8) 3.29 4.3-5.7 [facility] CenterBlood hemoglobin measurement (moles/volume)2019-07-24 06:10:00* Test Item Value Reference Range Interpretation Comments Hemoglobin (test code = 44724-2) 9.4 14.0-18.0 [facility] CenterAutomated blood hematocrit (volume fraction)2019-07-24 06:10:00* Test Item Value Reference Range Interpretation Comments Hematocrit (test code = 4544-3) 29.7 38.2-49.6 [facility] CenterAutomated erythrocyte mean corpuscular deitfl4557-09-19 06:10:00* Test Item Value Reference Range Interpretation Comments Mean Corpuscular Volume (test code = 787-2) 90.3 81-99 [facility] CenterAutomated erythrocyte mean corpuscular hemoglobin (mass per erythrocyte)2019-07-24 06:10:00* Test Item Value Reference Range Interpretation Comments Mean Corpuscular Hemoglobin (test code = 785-6) 28.6 28-32 [facility] erythrocyte mean corpuscular hemoglobin concentration measurement (mass/volume)2019-07-24 06:10:00* Test Item Value Reference Range Interpretation Comments Mean Corpuscular Hemoglobin Concent (test code = 786-4) 31.6 31-35 [facility] CenterRDW RntFe-Qdz0263-27-26 06:10:00* Test Item Value Reference Range Interpretation Comments Red Cell Distribution Width (test code = 53581-9) 14.5 11.7 -14.4 [facility] blood platelet count (count/volume)2019-07-24 06:10:00* Test Item Value Reference Range Interpretation Comments Platelet Count (test code = 777-3) 132 140-360 [facility] CenterAut[facility] blood segmented neutrophil count as percentage of total mfjccqjlye5353-06-39 06:10:00* Test Item Value Reference Range Interpretation Comments Neutrophils (%) (Auto) (test code = 87827-2) 61.3 38.7-80.0 [facility] CenterAutnov[facility] centered blood lymphocyte count as percentage ot total paapfojacy3390-63-59 06:10:00* Test Item Value Reference Range Interpretation Comments Lymphocytes (%) (Auto) (test code = 736-9) 24.9 18.0-39.1 [facility] CenterAutomated blood monocyte count as percentage of total mrhthpgqik7692-83-75 06:10:00* Test Item Value Reference Range Interpretation Comments Monocytes (%) (Auto) (test code = 5905-5) 10.0 4.4-11.3 [facility] CenterAutomated blood eosinophil count as percentage of total hymyzbxcgh3118-97-75 06:10:00* Test Item Value Reference Range Interpretation Comments Eosinophils (%) (Auto) (test code = 713-8) 2.6 0.0-6.0 [facility] CenterAutomated blood basophil count as percentage of total ckmwkzewgk5532-40-33 06:10:00* Test Item Value Reference Range Interpretation Comments Basophils (%) (Auto) (test code = 706-2) 0.9 0.0-1.0 [facility] CenterFluoroscopic procedure less than one hour yscqsjyw1903-38-57 06:10:00* Test Item Value Reference Range Interpretation Comments IM GRANULOCYTES % (test code = IM GRANULOCYTES %) 0.3 0.0- 1.0 [facility] CenterAutomated blood neutrophil count 2019-07-24 06:10:00* Test Item Value Reference Range Interpretation Comments Neutrophils # (Auto) (test code = 751-8) 3.9 2.1-6.9 [facility] CenterBlood lymphocytes count (number/volume) 2019-07-24 06:10:00* Test Item Value Reference Range Interpretation Comments Lymphocytes # (Auto) (test code = 05622-6) 1.6 1.0-3.2 [facility] CenterBlood monocytes automated count (number/volume)2019-07-24 06:10:00* Test Item Value Reference Range Interpretation Comments Monocytes # (Auto) (test code = 742-7) 0.6 0.2-0.8 [facility] CenterAutomated blood eosinophil count 2019-07-24 06:10:00* Test Item Value Reference Range Interpretation Comments Eosinophils # (Auto) (test code = 711-2) 0.2 0.0-0.4 [facility] CenterAutomated blood basophil count (count/volume)2019-07-24 06:10:00* Test Item Value Reference Range Interpretation Comments Basophils # (Auto) (test code = 704-7) 0.1 0.0-0.1 [facility] CenterFluoroscopic procedure less than one hour jjuridai2335-88-77 06:10:00* Test Item Value Reference Range Interpretation Comments Absolute Immature Granulocyte (auto (zeenta t code = Absolute Immature Granulocyte (auto) [...] [facility] anion fmi8153-96-66 06:10:00* Test Item Value Reference Range Interpretation Comments Anion Gap (test code = 94450-4) 10.7 8-16 [facility] [...] [place]erum or plasma urea nitrogen/creatinine mass fgowi3190-45-41 06:10:00* Test Item Value Reference Range Interpretation Comments BUN/Creatinine Ratio (test code = 3097-3) 10 6-25 [facility] CenterEstimated glomerular filtration rate (GFR) cxmdseqxhpokw1717-02-45 06:10:00* Test Item Value Reference Range Interpretation Comments Estimat Glomerular Filtration Rate (test code = 121601544) > 60 >60 Ranges were taken from the National Kidney Disease Education Program and the [facility] Kidney Foundation literature.Reference ranges:60 or greater: Kksezf44-06 ( for 3 consecutive months): Chronic kidney disease 15 or less: Kidney failureCitizens Medical CenterGlucose tdsafbfrjps5218-11-20 06:10:00* Test Item Value Reference Range Interpretation Comments Glucose Level (test code = HZG0724) 148 74-118 [facility] or plasma calcium measurement (mass/volume)2019-07-24 06:10:00* Test Item Value Reference Range Interpretation Comments Calcium Level (test code = 78613-9) 8.6 8.4-10.2 [facility] or plasma total bilirubin measurement (mass/volume)2019-07-24 06:10:00* Test Item Value Reference Range Interpretation Comments Total Bilirubin (test code = 1975-2) 0.5 0.2-1.2 [facility] CenterFluoroscopic procedure less than one hour uxfpezmr8475-59-67 06:10:00* Test Item Value Reference Range Interpretation [...] Albumin (test code = 1751-7) 3.1 3.5-5.0 [facility] CenterPlasma globulin measurement (mass/volume) 2019-07-24 06:10:00* Test Item Value Reference Range Interpretation Comments Globulin (test code = 35071-2) 3.1 2.3-3.5 [facility]um or plasma albumin/globulin mass ratnq8334-67-22 06:10:00* Test Item Value Reference Range Interpretation [...] (test code = 3040-3) < 4 8-78 [facility] CenterBlood leukocytes automated count (number/volume)2019-07-24 06:10:00* Test Item Value Reference Range Interpretation Comments White Blood Count (test code = 6690-2) 6.43 4.8-10.8 [facility] CenterBlood erythrocytes automated count (number/volume)2019-07-24 06:10:00* Test Item Value Reference Range Interpretation Comments Red Blood Count (test code = 789-8) 3.29 4.3-5.7 [facility] CenterBlood hemoglobin measurement (moles/volume)2019-07-24 06:10:00* Test Item Value Reference Range Interpretation Comments Hemoglobin (test code = 15804-8) 9.4 14.0-18.0 [facility] CenterAutomated blood hematocrit (volume fraction)2019-07-24 06:10:00* Test Item Value Reference Range Interpretation Comments Hematocrit (test code = 4544-3) 29.7 38.2-49.6 [facility] CenterAutomated erythrocyte mean corpuscular inczpq9075-30-49 06:10:00* Test Item Value Reference Range Interpretation Comments Mean Corpuscular Volume (test code = 787-2) 90.3 81-99 [facility] CenterAutomated erythrocyte mean corpuscular hemoglobin (mass per erythrocyte)2019-07-24 06:10:00* Test Item Value Reference Range Interpretation Comments Mean Corpuscular Hemoglobin (test code = 785-6) 28.6 28-32 [facility] CenterAutnov[facility] centered erythrocyte mean corpuscular hemoglobin concentration measurement (mass/volume)2019-07-24 06:10:00* Test Item Value Reference Range Interpretation Comments Mean Corpuscular Hemoglobin Concent (test code = 786-4) 31.6 31-35 [facility] CenterRDW NcyVm-Mur6859-27-26 06:10:00* Test Item Value Reference Range Interpretation Comments Red Cell Distribution Width (test code = 00025-9) 14.5 11.7 -14.4 [facility] CenterAutnov[facility] centered blood platelet count (count/volume)2019-07-24 06:10:00* Test Item Value Reference Range Interpretation Comments Platelet Count (test code = 777-3) 132 140-360 [facility] CenterAutomated blood segmented neutrophil count as percentage of total hdvdlyrxqn5617-52-56 06:10:00* Test Item Value Reference Range Interpretation Comments Neutrophils (%) (Auto) (test code = 78462-9) 61.3 38.7-80.0 [facility] CenterAutomated blood lymphocyte count as percentage ot total kbgvtesaal3454-61-37 06:10:00* Test Item Value Reference Range Interpretation Comments Lymphocytes (%) (Auto) (test code = 736-9) 24.9 18.0-39.1 [facility] CenterAutomated blood monocyte count as percentage of total ngyaqbowai9487-60-05 06:10:00* Test Item Value Reference Range Interpretation Comments Monocytes (%) (Auto) (test code = 5905-5) 10.0 4.4-11.3 [facility] CenterAutomated blood eosinophil count as percentage of total dliwgmycdm6897-67-38 06:10:00* Test Item Value Reference Range Interpretation Comments Eosinophils (%) (Auto) (test code = 713-8) 2.6 0.0-6.0 [facility] CenterAutomated blood basophil count as percentage of total ypqsczqyhh9906-31-45 06:10:00* Test Item Value Reference Range Interpretation Comments Basophils (%) (Auto) (test code = 706-2) 0.9 0.0-1.0 [facility] CenterFluoroscopic procedure less than one hour jamrdacc9425-85-18 06:10:00* Test Item Value Reference Range Interpretation Comments IM GRANULOCYTES % (test code = IM GRANULOCYTES %) 0.3 0.0- 1.0 [facility] CenterAutomated blood neutrophil count 2019-07-24 06:10:00* Test Item Value Reference Range Interpretation Comments Neutrophils # (Auto) (test code = 751-8) 3.9 2.1-6.9 [facility] CenterBlood lymphocytes count (number/volume) 2019-07-24 06:10:00* Test Item Value Reference Range Interpretation Comments Lymphocytes # (Auto) (test code = 62731-9) 1.6 1.0-3.2 [facility] CenterBlood monocytes automated count (number/volume)2019-07-24 06:10:00* Test Item Value Reference Range Interpretation Comments Monocytes # (Auto) (test code = 742-7) 0.6 0.2-0.8 [facility] CenterAutomated blood eosinophil count 2019-07-24 06:10:00* Test Item Value Reference Range Interpretation Comments Eosinophils # (Auto) (test code = 711-2) 0.2 0.0-0.4 [facility] CenterAutomated blood basophil count (count/volume)2019-07-24 06:10:00* Test Item Value Reference Range Interpretation Comments Basophils # (Auto) (test code = 704-7) 0.1 0.0-0.1 [facility] CenterFluoroscopic procedure less than one hour zadvlxlh7795-57-24 06:10:00* Test Item Value Reference Range Interpretation [...] [facility] anion elt6638-97-93 06:10:00* Test Item Value Reference Range Interpretation Comments Anion Gap (test code = 48443-3) 10.7 8-16 [facility] [...] [place]erum or plasma urea nitrogen/creatinine mass dmbuj5820-88-14 06:10:00* Test Item Value Reference Range Interpretation Comments BUN/Creatinine Ratio (test code = 3097-3) 10 6-25 [facility] CenterEstimated glomerular filtration rate (GFR) alsbrwevmrqot1797-26-66 06:10:00* Test Item Value Reference Range Interpretation Comments Estimat Glomerular Filtration Rate (test code = 879577842) > 60 >60 Ranges were taken from the National Kidney Disease Education Program and the [facility] Kidney Foundation literature.Reference ranges:60 or greater: Wfxbyi28-51 ( for 3 consecutive months): Chronic kidney disease 15 or less: Kidney failureCitizens Medical CenterGlucose ssdefqrcmwb5262-06-94 06:10:00* Test Item Value Reference Range Interpretation Comments Glucose Level (test code = PLY6509) 148 74-118 [facility] or plasma calcium measurement (mass/volume)2019-07-24 06:10:00* Test Item Value Reference Range Interpretation Comments Calcium Level (test code = 21031-8) 8.6 8.4-10.2 [facility] [place]erum or plasma total bilirubin measurement (mass/volume)2019-07-24 06:10:00* Test Item Value Reference Range Interpretation Comments Total Bilirubin (test code = 1975-2) 0.5 0.2-1.2 [facility] CenterFluoroscopic procedure less than one hour oikmcdat5467-09-83 06:10:00* Test Item Value Reference Range Interpretation [...] Albumin (test code = 1751-7) 3.1 3.5-5.0 [facility] CenterPlasma globulin measurement (mass/volume) 2019-07-24 06:10:00* Test Item Value Reference Range Interpretation Comments Globulin (test code = 29574-6) 3.1 2.3-3.5 [facility]erum or plasma albumin/globulin mass lzurd7861-81-02 06:10:00* Test Item Value Reference Range Interpretation [...] (test code = 3040-3) < 4 8-78 [facility] CenterBlood leukocytes automated count (number/volume)2019-07-24 06:10:00* Test Item Value Reference Range Interpretation Comments White Blood Count (test code = 6690-2) 6.43 4.8-10.8 [facility] CenterBlood erythrocytes automated count (number/volume)2019-07-24 06:10:00* Test Item Value Reference Range Interpretation Comments Red Blood Count (test code = 789-8) 3.29 4.3-5.7 [facility] CenterBlood hemoglobin measurement (moles/volume)2019-07-24 06:10:00* Test Item Value Reference Range Interpretation Comments Hemoglobin (test code = 92410-9) 9.4 14.0-18.0 [facility] CenterAutomated blood hematocrit (volume fraction)2019-07-24 06:10:00* Test Item Value Reference Range Interpretation Comments Hematocrit (test code = 4544-3) 29.7 38.2-49.6 [facility] CenterAutomated erythrocyte mean corpuscular jtocqt4917-56-99 06:10:00* Test Item Value Reference Range Interpretation Comments Mean Corpuscular Volume (test code = 787-2) 90.3 81-99 [facility] CenterAutomated erythrocyte mean corpuscular hemoglobin (mass per erythrocyte)2019-07-24 06:10:00* Test Item Value Reference Range Interpretation Comments Mean Corpuscular Hemoglobin (test code = 785-6) 28.6 28-32 [facility] CenterAutomated erythrocyte mean corpuscular hemoglobin concentration measurement (mass/volume)2019-07-24 06:10:00* Test Item Value Reference Range Interpretation Comments Mean Corpuscular Hemoglobin Concent (test code = 786-4) 31.6 31-35 [facility] CenterRDW XbwLe-Bww8533-07-26 06:10:00* Test Item Value Reference Range Interpretation Comments Red Cell Distribution Width (test code = 35974-4) 14.5 11.7 -14.4 [facility] CenterAutomated blood platelet count (count/volume)2019-07-24 06:10:00* Test Item Value Reference Range Interpretation Comments Platelet Count (test code = 777-3) 132 140-360 [facility] CenterAut[facility] blood segmented neutrophil count as percentage of total tpgojupdjb9668-35-16 06:10:00* Test Item Value Reference Range Interpretation Comments Neutrophils (%) (Auto) (test code = 99248-9) 61.3 38.7-80.0 [facility] CenterAutomated blood lymphocyte count as percentage ot total vorqxsxlvv9875-37-38 06:10:00* Test Item Value Reference Range Interpretation Comments Lymphocytes (%) (Auto) (test code = 736-9) 24.9 18.0-39.1 [facility] CenterAutomated blood monocyte count as percentage of total ncepbhlwgu4762-82-87 06:10:00* Test Item Value Reference Range Interpretation Comments Monocytes (%) (Auto) (test code = 5905-5) 10.0 4.4-11.3 [facility] CenterAutomated blood eosinophil count as percentage of total htoibzwhfl9432-50-83 06:10:00* Test Item Value Reference Range Interpretation Comments Eosinophils (%) (Auto) (test code = 713-8) 2.6 0.0-6.0 [facility] CenterAutomated blood basophil count as percentage of total zroukkoohj1660-41-88 06:10:00* Test Item Value Reference Range Interpretation Comments Basophils (%) (Auto) (test code = 706-2) 0.9 0.0-1.0 [facility] CenterFluoroscopic procedure less than one hour kxnyblih8494-61-13 06:10:00* Test Item Value Reference Range Interpretation Comments IM GRANULOCYTES % (test code = IM GRANULOCYTES %) 0.3 0.0- 1.0 [facility] CenterAutomated blood neutrophil count 2019-07-24 06:10:00* Test Item Value Reference Range Interpretation Comments Neutrophils # (Auto) (test code = 751-8) 3.9 2.1-6.9 [facility] CenterBlood lymphocytes count (number/volume) 2019-07-24 06:10:00* Test Item Value Reference Range Interpretation Comments Lymphocytes # (Auto) (test code = 11406-4) 1.6 1.0-3.2 [facility] CenterBlood monocytes automated count (number/volume)2019-07-24 06:10:00* Test Item Value Reference Range Interpretation Comments Monocytes # (Auto) (test code = 742-7) 0.6 0.2-0.8 [facility] CenterAutomated blood eosinophil count 2019-07-24 06:10:00* Test Item Value Reference Range Interpretation Comments Eosinophils # (Auto) (test code = 711-2) 0.2 0.0-0.4 [facility] CenterAutomated blood basophil count (count/volume)2019-07-24 06:10:00* Test Item Value Reference Range Interpretation Comments Basophils # (Auto) (test code = 704-7) 0.1 0.0-0.1 [facility] CenterFluoroscopic procedure less than one hour khphwrtv4377-61-17 06:10:00* Test Item Value Reference Range Interpretation [...] [facility] anion isi7760-17-82 06:10:00* Test Item Value Reference Range Interpretation Comments Anion Gap (test code = 75246-2) 10.7 8-16 [facility] [place]erum or plasma urea nitrogen/creatinine mass gkgzj1732-12-10 06:10:00* Test Item Value Reference Range Interpretation Comments BUN/Creatinine Ratio (test code = 3097-3) 10 6-25 [facility] CenterEstimated glomerular filtration rate (GFR) exkkbzsahyetz9322-98-49 06:10:00* Test Item Value Reference Range Interpretation Comments Estimat Glomerular Filtration Rate (test code = 066582820) > 60 >60 Ranges were taken from the National Kidney Disease Education Program and the [facility] Kidney Foundation literature.Reference ranges:60 or greater: Umxpsc97-63 ( for 3 consecutive months): Chronic kidney disease 15 or less: Kidney failureCitizens Medical CenterGlucose wrjdmkvtakw4723-69-42 06:10:00* Test Item Value Reference Range Interpretation Comments Glucose Level (test code = BWP7666) 148 74-118 [facility] Paso[facility]um or plasma calcium measurement (mass/volume)2019-07-24 06:10:00* Test Item Value Reference Range Interpretation Comments Calcium Level (test code = 57057-7) 8.6 8.4-10.2 [facility] Paso[facility] or plasma total bilirubin measurement (mass/volume)2019-07-24 06:10:00* Test Item Value Reference Range Interpretation Comments Total Bilirubin (test code = 1975-2) 0.5 0.2-1.2 [facility] CenterFluoroscopic procedure less than one hour pkkwcvyg6128-86-25 06:10:00* Test Item Value Reference Range Interpretation [...] Albumin (test code = 1751-7) 3.1 3.5-5.0 [facility] CenterPlasma globulin measurement (mass/volume) 2019-07-24 06:10:00* Test Item Value Reference Range Interpretation Comments Globulin (test code = 89272-8) 3.1 2.3-3.5 [facility] or plasma albumin/globulin mass njflc1637-22-35 06:10:00* Test Item Value Reference Range Interpretation [...] (test code = 3040-3) < 4 8-78 [facility] CenterFluoroscopic procedure less than one hour redzxxel5386-07-75 12:20:00* Test Item Value Reference Range Interpretation Comments Hemoglobin A1c Percent (test code = Hemoglobin A1c Percent) 8.4 4.0-7.0 [facility] CenterFluoroscopic procedure less than one hour xnhqshha8472-48-26 12:20:00* Test Item Value Reference Range Interpretation Comments Lactic Acid Level (test code = Lactic Acid Level) 0.8 0.5- 2.0 [facility] CenterFluoroscopic procedure less than one hour jhyymnnj1779-91-96 12:20:00* Test Item Value Reference Range Interpretation Comments Hemoglobin A1c Percent (test code = Hemoglobin A1c Percent) 8.4 4.0-7.0 [facility] CenterFluoroscopic procedure less than one hour kfemqazf6170-24-70 12:20:00* Test Item Value Reference Range Interpretation Comments Lactic Acid Level (test code = Lactic Acid Level) 0.8 0.5- 2.0 [facility] CenterFluoroscopic procedure less than one hour rrwqlrbx8503-74-25 12:20:00* Test Item Value Reference Range Interpretation Comments Hemoglobin A1c Percent (test code = Hemoglobin A1c Percent) 8.4 4.0-7.0 [facility] CenterFluoroscopic procedure less than one hour zjujyurb5670-48-24 12:20:00* Test Item Value Reference Range Interpretation Comments Lactic Acid Level (test code = Lactic Acid Level) 0.8 0.5- 2.0 [facility] CenterFluoroscopic procedure less than one hour atwmyvqk7191-41-35 12:20:00* Test Item Value Reference Range Interpretation Comments Hemoglobin A1c Percent (test code = Hemoglobin A1c Percent) 8.4 4.0-7.0 [facility] CenterFluoroscopic procedure less than one hour kpfrhmbb8291-94-53 12:20:00* Test Item Value Reference Range Interpretation Comments Lactic Acid Level (test code = Lactic Acid Level) 0.8 0.5- 2.0 [facility] CenterFluoroscopic procedure less than one hour epsbkvhy8882-78-62 12:20:00* Test Item Value Reference Range Interpretation Comments Hemoglobin A1c Percent (test code = Hemoglobin A1c Percent) 8.4 4.0-7.0 [facility] CenterFluoroscopic procedure less than one hour fhqexojo4335-43-44 12:20:00* Test Item Value Reference Range Interpretation Comments Lactic Acid Level (test code = Lactic Acid Level) 0.8 0.5- 2.0 [facility] CenterFluoroscopic procedure less than one hour wpkmqhxf5068-27-52 12:20:00* Test Item Value Reference Range Interpretation Comments Hemoglobin A1c Percent (test code = Hemoglobin A1c Percent) 8.4 4.0-7.0 [facility] CenterFluoroscopic procedure less than one hour rlcblhit0452-36-74 12:20:00* Test Item Value Reference Range Interpretation Comments Hemoglobin A1c Percent (test code = Hemoglobin A1c Percent) 8.4 4.0-7.0 [facility] CenterCT ABD/PEL WO JHNFPLMR-HGTF4141-40-25 06:46:00 [place] [address] Patient Name: BREE LINDSAY MR #: [id number] : 1975 Age/Sex: 43/M Req #: [id number] Adm Physician: Ordered by: NEIL PEREZ MD Report #: [id number] Location: [facility] Room/Bed: Procedure: [id number] HOPD/CT ABD/PEL WO CONTRAST-HOPD Exam Date: 07/23/19 [...] on 07/23/19657 Transcribed By: PAULA on 07/23/19 06 58 COPY TO: NEIL PEREZ MD Bacterial blood uwuuccu2012-09-10 06:44:00* Test Item Value Reference Range Interpretation Comments Blood Culture (test code = 600-7) STAPHYLOCOCCUS SP COAG NEG [facility] CenterBacterial blood zhununx4282-53-08 06:44:00* Test Item Value Reference Range Interpretation Comments Blood Culture (test code = 600-7) STAPHYLOCOCCUS SP COAG NEG [facility] CenterBacterial blood ngjgopr3690-88-01 06:44:00* Test Item Value Reference Range Interpretation Comments Blood Culture (test code = 600-7) STAPHYLOCOCCUS SP COAG NEG [facility] CenterBagaeria blood ssehwjm5362-77-79 06:44:00* Test Item Value Reference Range Interpretation Comments Blood Culture (test code = 600-7) STAPHYLOCOCCUS SP COAG NEG [facility] CenterBacterial blood frlyivv4766-63-00 06:44:00* Test Item Value Reference Range Interpretation Comments Blood Culture (test code = 600-7) STAPHYLOCOCCUS SP COAG NEG [facility] CenterBacterial blood tunwzcd8400-77-19 06:44:00* Test Item Value Reference Range Interpretation Comments Blood Culture (test code = 600-7) STAPHYLOCOCCUS SP COAG NEG [facility] CenterBacterial blood nclnale7066-73-45 06:44:00* Test Item Value Reference Range Interpretation Comments Blood Culture (test code = 600-7) STAPHYLOCOCCUS SP COAG NEG [facility] CenterBacterial blood ftejqop3914-27-44 06:44:00* Test Item Value Reference Range Interpretation Comments Blood Culture (test code = 600-7) STAPHYLOCOCCUS SP COAG NEG [facility] CenterCXR 1 VEW - VGPT6950-50-18 06:44:00 [place] [address] Patient Name: BREE LINDSAY MR #: [id number] : 1975 Age/Sex: 43/M Req #: [id number] Adm Physician: Ordered by: NEIL PEREZ MD Report #: [id number] Location: [facility] Room/Bed: Procedure: [id number] HOPD/CXR 1 VEW - HOPD Exam Date: Exam Time: REPORT STATUS: Signed EXAMINATION: CX R 1 VEW - HOPD INDICATION: DKA. COMPARISON: [...] 07/23/19645 COPY TO: NEIL PEREZ MD Blood gzlaarq2145-57-68 06:05:00* Test Item Value Reference Range Interpretation Comments Blood Culture (test code = 39786422) NO GROWTH AFTER 5 DAYS, FINAL REPORT [facility] CenterBlood rlwlbio2489-21-30 06:05:00* Test Item Value Reference Range Interpretation Comments Blood Culture (test code = 41958694) NO GROWTH AFTER 5 DAYS, FINAL REPORT [facility] CenterBlood zhcjoey0463-14-27 06:05:00* Test Item Value Reference Range Interpretation Comments Blood Culture (test code = 06547368) NO GROWTH AFTER 5 DAYS, FINAL REPORT [facility] gfanlqp9949-61-32 06:05:00* Test Item Value Reference Range Interpretation Comments Blood Culture (test code = 97527624) NO GROWTH AFTER 5 DAYS, FINAL REPORT [facility] ommnkff4383-18-61 06:05:00* Test Item Value Reference Range Interpretation Comments Blood Culture (test code = 91027607) NO GROWTH AFTER 5 DAYS, FINAL REPORT [facility] zcxirmv2751-70-75 06:05:00* Test Item Value Reference Range Interpretation Comments Blood Culture (test code = 08007672) NO GROWTH AFTER 5 DAYS, FINAL REPORT [facility] CenterBedside Blmeszb6939-03-65 08:12:00* Test Item Value Reference Range Interpretation Comments Bedside Glucose (test code = 10131-3) 120 70-120 Meter ID: [id number] Surgical Hospital of El Pasoodium Level 2019-07-10 07:06:00* Test Item Value Reference Range Interpretation Comments Sodium Level (test code = 2951-2) 139 136-145 [facility] CenterPotassium Hnhle3441-73-71 07:06:00* Test Item Value Reference Range Interpretation Comments Potassium Level (test code = 2823-3) 3.3 3.5-5.1 L [facility] CenterChloride Rhbgl7279-58-15 07:06:00* Test Item Value Reference Range Interpretation Comments Chloride Level (test code = 2075-0) 102 98-107 [facility] CenterCarbon Dioxide Tbljz1322-54-98 07:06:00* Test Item Value Reference Range Interpretation Comments Carbon Dioxide Level (test code = 2028-9) 28 22-29 [facility] CenterAnion Bew3542-16-62 07:06:00* Test Item Value Reference Range Interpretation Comments Anion Gap (test code = 69399-3) 12.3 8-16 [facility] Urea Jwqmpwii3768-07-82 07:06:00* Test Item Value Reference Range Interpretation Comments Blood Urea Nitrogen (test code = 3094-0) 31 7-26 H [facility] CenterCreatinine2020-04-12 07:06:00* Test Item Value Reference Range Interpretation Comments Creatinine (test code = 2160-0) 1.55 0.72-1.25 H [facility] CenterBUN/Creatinine Olkjp3710-63-94 07:06:00* Test Item Value Reference Range Interpretation Comments BUN/Creatinine Ratio (test code = 3097-3) 20 6-25 [facility] CenterEstimat Glomerular Filtration Rate 2019-07-10 07:06:00* Test Item Value Reference Range Interpretation Comments Estimat Glomerular Filtration Rate (test code = 569634090) 60 >60 Ranges were taken from the National Kidney Disease Education Program and the [facility] Kidney Foundation literature.Reference ranges:60 or greater: Fswuze03-52 ( for 3 consecutive months): Chronic kidney disease 15 or less: Kidney failureCitizens Medical CenterGlucose Odfbg8904-55-95 07:06:00* Test Item Value Reference Range Interpretation Comments Glucose Level (test code = AJQ9650) 92 74-118 [facility] CenterCalcium Tgbpv6995-65-64 07:06:00* Test Item Value Reference Range Interpretation Comments Calcium Level (test code = 41847-8) 8.1 8.4-10.2 L [facility] CenterMagnesium Vgwqa0961-75-53 06:53:00* Test Item Value Reference Range Interpretation Comments Magnesium Level (test code = 64070-7) 1.8 1.3-2.1 [facility] CenterWhite Blood Lgvdq4673-10-96 06:24:00* Test Item Value Reference Range Interpretation Comments White Blood Count (test code = 6690-2) 8.09 4.8-10.8 [facility] CenterRed Blood Zmgii7489-97-73 06:24:00* Test Item Value Reference Range Interpretation Comments Red Blood Count (test code = 789-8) 3.66 4.3-5.7 L [facility] CenterHemoglobin2020-04-12 06:24:00* Test Item Value Reference Range Interpretation Comments Hemoglobin (test code = 45985-0) 10.1 14.0-18.0 L [facility] CenterHematocrit2020-04-12 06:24:00* Test Item Value Reference Range Interpretation Comments Hematocrit (test code = 4544-3) 32.4 38.2-49.6 L [facility] CenterMean Corpuscular Hxintv3829-92-65 06:24:00* Test Item Value Reference Range Interpretation Comments Mean Corpuscular Volume (test code = 787-2) 88.5 81-99 [facility] CenterMean Corpuscular Kvkbmlchoo1907-30-93 06:24:00* Test Item Value Reference Range Interpretation Comments Mean Corpuscular Hemoglobin (test code = 785-6) 27.6 28-32 L [facility] CenterMean Corpuscular Hemoglobin Concent 2019-07-10 06:24:00* Test Item Value Reference Range Interpretation Comments Mean Corpuscular Hemoglobin Concent (test code = 786-4) 31.2 31-35 [facility] CenterRed Cell Distribution Uddzd1110-54-28 06:24:00* Test Item Value Reference Range Interpretation Comments Red Cell Distribution Width (test code = 72052-9) 13.8 11.7 -14.4 [facility] CenterPlatelet Xxbbk2755-42-82 06:24:00* Test Item Value Reference Range Interpretation Comments Platelet Count (test code = 777-3) 191 140-360 [facility] CenterNeutrophils (%) (Auto)2019-07-10 06:24:00 * Test Item Value Reference Range Interpretation Comments Neutrophils (%) (Auto) (test code = 41427-5) 61.6 38.7-80.0 [facility] CenterLymphocytes (%) (Auto)2019-07-10 06:24:00 * Test Item Value Reference Range Interpretation Comments Lymphocytes (%) (Auto) (test code = 736-9) 26.7 18.0-39.1 [facility] CenterMonocytes (%) (Auto)2019-07-10 06:24:00* Test Item Value Reference Range Interpretation Comments Monocytes (%) (Auto) (test code = 5905-5) 10.3 4.4-11.3 [facility] CenterEosinophils (%) (Auto)2019-07-10 06:24:00 * Test Item Value Reference Range Interpretation Comments Eosinophils (%) (Auto) (test code = 713-8) 0.6 0.0-6.0 [facility] CenterBasophils (%) (Auto)2019-07-10 06:24:00* Test Item Value Reference Range Interpretation Comments Basophils (%) (Auto) (test code = 706-2) 0.6 0.0-1.0 [facility] CenterIM GRANULOCYTES %2019-07-10 06:24:00* Test Item Value Reference Range Interpretation Comments IM GRANULOCYTES % (test code = IM GRANULOCYTES %) 0.2 0.0- 1.0 [facility] CenterNeutrophils # (Auto)2019-07-10 06:24:00* Test Item Value Reference Range Interpretation Comments Neutrophils # (Auto) (test code = 751-8) 5.0 2.1-6.9 [facility] CenterLymphocytes # (Auto)2019-07-10 06:24:00* Test Item Value Reference Range Interpretation Comments Lymphocytes # (Auto) (test code = 25015-2) 2.2 1.0-3.2 [facility] CenterMonocytes # (Auto)2019-07-10 06:24:00* Test Item Value Reference Range Interpretation Comments Monocytes # (Auto) (test code = 742-7) 0.8 0.2-0.8 [facility] CenterEosinophils # (Auto)2019-07-10 06:24:00* Test Item Value Reference Range Interpretation Comments Eosinophils # (Auto) (test code = 711-2) 0.1 0.0-0.4 [facility] CenterBasophils # (Auto)2019-07-10 06:24:00* Test Item Value Reference Range Interpretation Comments Basophils # (Auto) (test code = 704-7) 0.1 0.0-0.1 [facility] CenterAbsolute Immature Granulocyte (auto 2019-07-10 06:24:00* Test Item Value Reference Range Interpretation Comments Absolute Immature Granulocyte (auto (zeenat t code = Absolute Immature Granulocyte (auto) 0.02 0-0.1 [facility] Pasoerum or plasma magnesium measurement (mass/volume)2019-07-10 05:32:00* Test Item Value Reference Range Interpretation Comments Magnesium Level (test code = 51479-4) 1.8 1.3-2.1 [facility] Pasoerum or plasma magnesium measurement (mass/volume)2019-07-10 05:32:00* Test Item Value Reference Range Interpretation Comments Magnesium Level (test code = 24460-4) 1.8 1.3-2.1 [facility] Pasoerum or plasma magnesium measurement (mass/volume)2019-07-10 05:32:00* Test Item Value Reference Range Interpretation Comments Magnesium Level (test code = 96942-1) 1.8 1.3-2.1 [facility] Pasoerum or plasma magnesium measurement (mass/volume)2019-07-10 05:32:00* Test Item Value Reference Range Interpretation Comments Magnesium Level (test code = 54830-9) 1.8 1.3-2.1 [facility] Pasoerum or plasma magnesium measurement (mass/volume)2019-07-10 05:32:00* Test Item Value Reference Range Interpretation Comments Magnesium Level (test code = 67337-4) 1.8 1.3-2.1 [facility] Pasoerum or plasma magnesium measurement (mass/volume)2019-07-10 05:32:00* Test Item Value Reference Range Interpretation Comments Magnesium Level (test code = 16793-9) 1.8 1.3-2.1 [facility] Pasoerum or plasma magnesium measurement (mass/volume)2019-07-10 05:32:00* Test Item Value Reference Range Interpretation Comments Magnesium Level (test code = 02221-2) 1.8 1.3-2.1 [facility] Pasoerum or plasma magnesium measurement (mass/volume)2019-07-10 05:32:00* Test Item Value Reference Range Interpretation Comments Magnesium Level (test code = 54210-9) 1.8 1.3-2.1 [facility] SpringsGLUBED2020-02-10 08:55:00* Test Item Value Reference Range Interpretation Comments GLUBED (test code = GLUBED) 122 mg/dL 74-106 H Performed by certified chucking lathe operator at [facility] PQFHVP9921-71-92 08:43:00* Test Item Value Reference Range Interpretation Comments GLUBED (test code = GLUBED) 140 mg/dL 74-106 H Performed by certified chucking lathe operator at [facility] - XR SHOULDER 1 V [id number] 13:41:00 FAX: Jg Astudillo MD [phone] [place]: St: REG FAX: Riley Zavala DO [phone] Name: BREE LINDSAY [facility] : 1975 Age/S: 43/M [address] [place] [address] Unit #: [id number] Loc: [place] [address] Phys: Jg Astudillo MD Acct: [id number] Dis Date: Status: REG CLI PHONE #: [phone] Exam Date: 03/02/2019 1333 FAX #: [phone] Reason: PICC PLACEMENT EXAMS: CPT CODE: [id number] XR SHOULDER 1 [place] [address] 1 VIEW LEFT SHOULDER HISTORY: PICC line pl acement.. Left upper extremity PICC line present. Catheter tip pr ojects over the level of the inferior 3rd of the SVC. END IMPRESSION SL: [id number] at 1341 Reported and sig lizette by: Yusuf Burgos M.D. CC: Jg Astudillo MD; Zak Beckman DO Technologist: RT Rashida(R) Trnscrd Date/Time/By: 03/02/2019 (5086) : By: MilaRTB Orig Print D/T: S: 03/02/2019 (5418) PAGE 1 Signed Report [id number] 08:06:00* Test Item Value Reference Range Interpretation Comments GLUBED (test code = GLUBED) 224 mg/dL 74-106 H Performed by certified chucking lathe operator at [facility] WGTQPL6928-09-90 22:57:00* Test Item Value Reference Range Interpretation Comments GLUBED (test code = GLUBED) 62 mg/dL 74-106 L Performed by certified chucking lathe operator at [facility] BVMMKK4611-64-35 18:14:00* Test Item Value Reference Range Interpretation Comments GLUBED (test code = GLUBED) 158 mg/dL 74-106 H Performed by certified chucking lathe operator at [facility] TRRGSK4986-18-31 11:43:00* Test Item Value Reference Range Interpretation Comments GLUBED (test code = GLUBED) 123 mg/dL 74-106 H Performed by certified chucking lathe operator at [facility] BASIC METABOLIC BSEMV4395-35-58 11:04:00* Test Item Value Reference Range Interpretation [...] CA) 8.5 mg/dL 8.5-10.1 N BASIC METABOLIC ZZDJC7873-25-37 10:55:00* Test Item Value Reference Range Interpretation [...] code = CA) mg/dL 8.5-10.1 CBC W/AUTO DWRZ5471-39-71 10:13:00* Test Item Value Reference Range Interpretation [...] code = NRBC#) 0.00 K/mm3 0.0-0.1 N BGZEVR6573-74-70 08:19:00* Test Item Value Reference Range Interpretation Comments GLUBED (test code = GLUBED) 81 mg/dL 74-106 N Performed by certified chucking lathe operator at [facility] QFBCQS7279-86-75 22:30:00* Test Item Value Reference Range Interpretation Comments GLUBED (test code = GLUBED) 243 mg/dL 74-106 H Performed by certified chucking lathe operator at [facility] EPBVEC9770-49-42 17:17:00* Test Item Value Reference Range Interpretation Comments GLUBED (test code = GLUBED) 91 mg/dL 74-106 N Performed by certified chucking lathe operator at [facility] BLOOD UREA OFZYKVCB4566-74-16 13:49:00* Test Item Value Reference Range Interpretation Comments BLOOD UREA NITROGEN (test code = BUN) 8 mg/dL 7-18 N 2 PHELBS GONE UP AND TRIED TO DRAW BLOOD PT SAID COME BACKINFORMED PAIGE LIU E4812 V.LAB.KP2 02/19/19 1037 KTOHUCDJKF7946-70-91 13:49:00* Test Item Value Reference Range Interpretation Comments CREATININE (test code = CREAT) 0.90 mg/dL 0.7-1.3 N 2 PHELBS GONE UP AND TRIED TO DRAW BLOOD PT SAID COME BACKINFORMED PAIGE LIU E4812 V.LAB.KP2 02/19/19 1037 CBC W/AUTO EFSH3438-18-44 13:02:00* Test Item Value Reference Range Interpretation [...] PT TO COME BACK LATER NOTIFIED PAIGE ALANISKP211/ 2420GVYYGK3716-50-02 11:50:00* Test Item Value Reference Range Interpretation Comments GLUBED (test code = GLUBED) 147 mg/dL 74-106 H Performed by certified chucking lathe operator at [facility] KPAFKV1487-45-85 10:37:00* Test Item Value Reference Range Interpretation Comments GLUBED (test code = GLUBED) 97 mg/dL 74-106 N Performed by certified chucking lathe operator at [facility] AGPYLJ8879-98-50 21:43:00* Test Item Value Reference Range Interpretation Comments GLUBED (test code = GLUBED) 162 mg/dL 74-106 H Performed by certified chucking lathe operator at [facility] ZFTUER7579-68-43 16:06:00* Test Item Value Reference Range Interpretation Comments GLUBED (test code = GLUBED) 98 mg/dL 74-106 N Performed by certified chucking lathe operator at [facility] - XR CHEST 1 [id number] 14:36:00 FAX: Olegario Diaz MD [phone] [place]: B St: [facility] FAX: Iris Liao [phone] FAX: Riley Zavala DO [phone] Name: BREE LINDSAY [facility] : 1975 Age/S: 43/M [place] Unit #: [id number] Loc: V.3070 [place] [address] Phys: Iris Liao NP Acct: [id number] Dis Date: Status: ADM IN ONE #: [phone] Exam Date: 02/18/2019 1339 FAX #: [phone] Reason: PICC TIP CONFIRMATION EXAMS: CPT CODE: [id number] XR CHEST 1 V 49103 REASON FOR EXAM: PICC TIP CONFIRMATION Exam [...] finding from the prior exam. Location: [facility] Electronically Signed by Mulugeta Espinoza MD on at 1436 Reported and signed by: Mulugeta Espinoza MD CC: Olegario Diaz MD; Iris Liao NP; Riley Beckman DO Technologist: Ngozi LYON(R); Lucie Martinez(R) Trnscrd Date/Time/By: 01/29 (1434) : By: [email or web address] Orig Print D/T: S: 02/18/2019 (4082) PAGE 1 Signed Report [id number] 12:20:00* Test Item Value Reference Range Interpretation Comments GLUBED (test code = GLUBED) 141 mg/dL 74-106 H Performed by certified chucking lathe operator at [facility] RUHTEQ4569-10-64 07:15:00* Test Item Value Reference Range Interpretation Comments GLUBED (test code = GLUBED) 129 mg/dL 74-106 H Performed by certified chucking lathe operator at [facility] BEGOUU9686-81-84 00:21:00* Test Item Value Reference Range Interpretation Comments GLUBED (test code = GLUBED) 166 mg/dL 74-106 H Performed by certified chucking lathe operator at [facility] WPOSJS6762-43-96 20:50:00* Test Item Value Reference Range Interpretation Comments GLUBED (test code = GLUBED) 194 mg/dL 74-106 H Performed by certified chucking lathe operator at [facility] AILMYLKQQM6005-78-85 18:19:00* Test Item Value Reference Range Interpretation Comments VANCOMYCIN (test code = VANCO) 25.9 UG/ML 5.0-45.0 N [id number] 16:41:00* Test Item Value Reference Range Interpretation Comments GLUBED (test code = GLUBED) 223 mg/dL 74-106 H Performed by certified chucking lathe operator at [facility] [id number] 13:22:00* Test Item Value Reference Range Interpretation Comments GLUBED (test code = GLUBED) 95 mg/dL 74-106 N Performed by certified chucking lathe operator at [facility] [id number] 13:22:00* Test Item Value Reference Range Interpretation Comments GLUBED (test code = GLUBED) 61 mg/dL 74-106 L Performed by certified chucking lathe operator at [facility] [id number] 13:22:00* Test Item Value Reference Range Interpretation Comments GLUBED (test code = GLUBED) 32 mg/dL 74-106 LL Test performed as P.O.C. by nursing staff.Performed by certified chucking lathe operator at [facility] [id number] 13:22:00* Test Item Value Reference Range Interpretation Comments GLUBED (test code = GLUBED) 28 mg/dL 74-106 LL Test performed as P.O.C. by nursing staff.[facility] [id number] 11:50:00* Test Item Value Reference Range Interpretation Comments GLUBED (test code = GLUBED) 104 mg/dL 74-106 N Performed by certified chucking lathe operator at [facility] CBC W/MANUAL [id number] 09:27:00* Test Item Value Reference Range Interpretation [...] code = IMMAT) 0 % 0-0 N [id number] 07:51:00* Test Item Value Reference Range Interpretation Comments GLUBED (test code = GLUBED) 244 mg/dL 74-106 H Performed by certified chucking lathe operator at [facility] BASIC METABOLIC [id number] 07:23:00* Test Item Value Reference Range Interpretation [...] CA) 7.9 mg/dL 8.5-10.1 L BASIC METABOLIC [id number] 07:13:00* Test Item Value Reference Range Interpretation [...] code = CA) mg/dL 8.5-10.1 CBC W/MANUAL [id number] 07:10:00* Test Item Value Reference Range Interpretation [...] MORPHOLOGY (test code = PLTMORPH) CBC W/MANUAL [id number] 07:10:00* Test Item Value Reference Range Interpretation [...] MORPHOLOGY (test code = PLTMORPH) CBC W/MANUAL [id number] 07:10:00* Test Item Value Reference Range Interpretation [...] MORPHOLOGY (test code = PLTMORPH) CBC W/MANUAL [id number] 07:09:00* Test Item Value Reference Range Interpretation [...] MORPHOLOGY (test code = PLTMORPH) CBC W/MANUAL [id number] 07:09:00* Test Item Value Reference Range Interpretation [...] MORPHOLOGY (test code = PLTMORPH) SED RATE [id number] 21:42:00* Test Item Value Reference Range Interpretation Comments SED RATE WESTERGREN (test code = SEDW) 76 mm/hr 0-15 H SED [id number] 21:42:00* Test Item Value Reference Range Interpretation Comments SED RATE (test code = SEDW) 76 mm/hr 0-15 H WINTROBE METHOD: NORMAL RANGE FOR MEN: 0-9 MM/HR WOMAN: 0-20 MM/HR [id number] 20:54:00* Test Item Value Reference Range Interpretation Comments GLUBED (test code = GLUBED) 345 mg/dL 74-106 H Performed by certified chucking lathe operator at [facility] [id number] 16:36:00* Test Item Value Reference Range Interpretation Comments GLUBED (test code = GLUBED) 37 mg/dL 74-106 LL Performed by certified chucking lathe operator at [facility] [id number] 16:30:00* Test Item Value Reference Range Interpretation Comments GLUBED (test code = GLUBED) 94 mg/dL 74-106 N Performed by certified chucking lathe operator at [facility] [id number] 12:04:00* Test Item Value Reference Range Interpretation Comments GLUBED (test code = GLUBED) 236 mg/dL 74-106 H Performed by certified chucking lathe operator at [facility] CBC W/MANUAL [id number] 08:49:00* Test Item Value Reference Range Interpretation [...] IMMAT) 0 % 0-0 N BASIC METABOLIC [id number] 08:29:00* Test Item Value Reference Range Interpretation [...] CA) 7.9 mg/dL 8.5-10.1 L CBC W/MANUAL [id number] 08:09:00* Test Item Value Reference Range Interpretation [...] MORPHOLOGY (test code = PLTMORPH) CBC W/MANUAL [id number] 08:09:00* Test Item Value Reference Range Interpretation [...] MORPHOLOGY (test code = PLTMORPH) CBC W/MANUAL [id number] 08:09:00* Test Item Value Reference Range Interpretation [...] MORPHOLOGY (test code = PLTMORPH) CBC W/MANUAL [id number] 08:09:00* Test Item Value Reference Range Interpretation [...] MORPHOLOGY (test code = PLTMORPH) CBC W/MANUAL [id number] 08:09:00* Test Item Value Reference Range Interpretation [...] PLTEST) PLATELET MORPHOLOGY (test code = PLTMORPH) [id number] 07:33:00* Test Item Value Reference Range Interpretation Comments GLUBED (test code = GLUBED) 315 mg/dL 74-106 H Performed by certified chucking lathe operator at [facility] [id number] 19:56:00* Test Item Value Reference Range Interpretation Comments GLUBED (test code = GLUBED) 90 mg/dL 74-106 N Performed by certified chucking lathe operator at [facility] [id number] 19:07:00* Test Item Value Reference Range Interpretation Comments GLUBED (test code = GLUBED) 107 mg/dL 74-106 H Performed by certified chucking lathe operator at [facility] [id number] 19:07:00* Test Item Value Reference Range Interpretation Comments GLUBED (test code = GLUBED) 49 mg/dL 74-106 LL [facility] lathe [facility] [id number] 17:50:00* Test Item Value Reference Range Interpretation Comments POTASSIUM (test code = K) 3.0 mmol/L 3.5-5.1 L RE SULT VERIFIED BY REPEAT ANALYSIS [id number] 17:08:00* Test Item Value Reference Range Interpretation Comments GLUBED (test code = GLUBED) 66 mg/dL 74-106 L Performed by certified chucking lathe operator at [facility] [id number] 16:57:00* Test Item Value Reference Range Interpretation Comments GLUBED (test code = GLUBED) 76 mg/dL 74-106 N Performed by certified chucking lathe operator at [facility] [id number] 13:11:00* Test Item Value Reference Range Interpretation Comments POTASSIUM (test code = K) 5.2 mmol/L 3.5-5.1 H [id number] 11:49:00* Test Item Value Reference Range Interpretation Comments GLUBED (test code = GLUBED) 81 mg/dL 74-106 N Performed by certified chucking lathe operator at [facility] [id number] 09:39:00* Test Item Value Reference Range Interpretation Comments GLUBED (test code = GLUBED) 78 mg/dL 74-106 N Performed by certified chucking lathe operator at [facility] - MRI LOW EXT W/O CONT [id number] 09:36:00 FAX: Olegario Diaz MD [phone] [place]: B St: ADM FAX: Heavenly Kerr [facility] [phone] FAX: Riley Zavala DO [phone] Name: BREE LINDSAY [facility] : 1975 Age/S: 43/M [address] [facility] Unit #: [id number] Loc: V.3070 [place] [address] Phys: Heavenly Null DPM Acct: [id number] Dis Date: Status: ADM IN PH ONE #: [phone] Exam Date: 02/15/2019 0859 FAX #: [phone] Reason: cellulitis EXAMS: CPT CODE: [id number] MR [place] L[place] EXT W/[place] [address] HISTORY: Cellu litis TECHNIQUE: Sagittal T1, sagittal [...] By: [email or web address] Orig Print D/T: S: 02/15/2019 (8467) PAGE 1 Signed Report [id number] 07:22:00* Test Item Value Reference Range Interpretation Comments GLUBED (test code = GLUBED) 57 mg/dL 74-106 L Performed by certified chucking lathe operator at [facility] BASIC METABOLIC [id number] 05:15:00* Test Item Value Reference Range Interpretation Comments SODIUM (test code = NA) 136 mmol/L 136-145 N POTASSIUM (test code = K) 2.7 mmol/L 3.5-5.1 LL Re [place]ults [place] [id number] [address] 02/15/19 0515Critical results verified and [...] CA) 8.3 mg/dL 8.5-10.1 L C REACTIVE [id number] 04:21:00* Test Item Value Reference Range Interpretation Comments C REACTIVE PROTEIN (test code = CRP) 27.10 mg/dL 0-0.3 H CBC W/MANUAL [id number] 04:05:00* Test Item Value Reference Range Interpretation [...] IMMAT) 0 % 0-0 N CBC W/MANUAL [id number] 03:30:00* Test Item Value Reference Range Interpretation [...] PLTEST) PLATELET MORPHOLOGY (test code = PLTMORPH) [id number] 20:26:00* Test Item Value Reference Range Interpretation Comments GLUBED (test code = GLUBED) 151 mg/dL 74-106 H Performed by certified chucking lathe operator at [facility] [id number] 17:12:00* Test Item Value Reference Range Interpretation Comments GLUBED (test code = GLUBED) 124 mg/dL 74-106 H Performed by certified chucking lathe operator at [facility] [id number] 17:07:00* Test Item Value Reference Range Interpretation Comments GLUBED (test code = GLUBED) 81 mg/dL 74-106 N Performed by certified chucking lathe operator at [facility] [id number] 12:13:00* Test Item Value Reference Range Interpretation Comments GLUBED (test code = GLUBED) 95 mg/dL 74-106 N Performed by certified chucking lathe operator at [facility] CBC W/MANUAL [id number] 08:15:00* Test Item Value Reference Range Interpretation [...] code = IMMAT) 0 % 0-0 N [id number] 07:18:00* Test Item Value Reference Range Interpretation Comments GLUBED (test code = GLUBED) 195 mg/dL 74-106 H Performed by certified chucking lathe operator at [facility] BASIC METABOLIC [id number] 07:16:00* Test Item Value Reference Range Interpretation [...] code = CA) 8.4 mg/dL 8.5-10.1 L [id number] 07:16:00* Test Item Value Reference Range Interpretation Comments MAGNESIUM (test code = MAG) 1.7 mg/dL 1.8-2.4 L CBC W/MANUAL [id number] 06:58:00* Test Item Value Reference Range Interpretation [...] MORPHOLOGY (test code = PLTMORPH) CBC W/MANUAL [id number] 06:58:00* Test Item Value Reference Range Interpretation [...] MORPHOLOGY (test code = PLTMORPH) CBC W/MANUAL [id number] 06:58:00* Test Item Value Reference Range Interpretation [...] MORPHOLOGY (test code = PLTMORPH) CBC W/MANUAL [id number] 06:58:00* Test Item Value Reference Range Interpretation [...] MORPHOLOGY (test code = PLTMORPH) CBC W/MANUAL [id number] 06:58:00* Test Item Value Reference Range Interpretation [...] MORPHOLOGY (test code = PLTMORPH) BASIC METABOLIC [id number] 06:56:00* Test Item Value Reference Range Interpretation [...] CALCIUM (test code = CA) mg/dL 8.5-10.1 [id number] 06:56:00* Test Item Value Reference Range Interpretation Comments MAGNESIUM (test code = MAG) mg/dL 1.8-2.4 [id number] 20:42:00* Test Item Value Reference Range Interpretation Comments GLUBED (test code = GLUBED) 261 mg/dL 74-106 H Performed by certified chucking lathe operator at [facility] CBC W/MANUAL [id number] 10:55:00* Test Item Value Reference Range Interpretation [...] MORPHOLOGY (test code = PLTMORPH) NORMAL URINALYSIS [id number] 10:38:00* Test Item Value Reference Range Interpretation [...] Clean Catch- XR FOOT 3 + V [id number] 10:33:00 Name: BREE LINDSAY [facility] : 1975 Age/S:43 /M [address] [facility] Unit#:[id number] Loc: [place] [address] Phys: Chandan Cage MD Dis Date: PHONE #: [phone] Status: REG ER FAX #: [phone] Exam Date: 02/13/2019 Re ason: left foot swelling EXAMS: CPT CODE: [id number] XR FOOT 3 + [place] [address] CLINICAL HISTORY: left foot swelling TECHNIQUE: AP, [...] Sadler RT(R)(CT) Trnsc rpt Data: 02/13/2019 (1033) t.SDR.RR31 Orig Print D/T: S : 02/13/2019 (1035) PAGE 1 Signed Report LACTIC [id number] 10:28:00* Test Item Value Reference Range Interpretation Comments LACTIC ACID (test code = LACT) 1.6 MMOL/L 0.4-1.9 N BASIC METABOLIC [id number] 10:28:00* Test Item Value Reference Range Interpretation [...] CA) 8.7 mg/dL 8.4-10.2 N HEPATIC FUNCTION [id number] 10:28:00* Test Item Value Reference Range Interpretation [...] code = ALKP) 120 U/L 38-126 N [id number] 10:28:00* Test Item Value Reference Range Interpretation Comments TROPONIN-I (test code = TROPI) <0.015 ng/mL 0.00-0.056 N URINALYSIS [id number] 10:20:00* Test Item Value Reference Range Interpretation Comments UA COLOR (test code = COLU) BHRAAT YELLOW A UA APPEARANCE (test code = [...] A UA NITRITE DIPSTICK (test code = JHONSON) NEGATIVE NEGATIVE UA LEUKOCYTE ESTERASE DIPSTICK (test code = LEUU) 25 Jeannine/uL (Tra ce) uL NEGATIVE A UA WBC (test code = WBCU) per HPF 0-5 UA RBC (test code = RBCU) per HPF 0-5 UA EPITHELIAL CELLS (test code = EPIU) per HPF Few UA BACTERIA (test code = BACU) per HPF NONE Urine Source? Clean CatchBASIC METABOLIC [id number] 10:19:00* Test Item Value Reference Range Interpretation [...] CA) 8.7 mg/dL 8.4-10.2 N HEPATIC FUNCTION [id number] 10:19:00* Test Item Value Reference Range Interpretation [...] TOTAL (test code = ALKP) IUnit/L 45-117 [id number] 10:19:00* Test Item Value Reference Range Interpretation Comments TROPONIN-I (test code = TROPI) ng/mL 0-0.045 CBC W/MANUAL [id number] 10:13:00* Test Item Value Reference Range Interpretation [...] MORPHOLOGY (test code = PLTMORPH) CBC W/MANUAL [id number] 10:02:00* Test Item Value Reference Range Interpretation [...] MORPHOLOGY (test code = PLTMORPH) CBC W/MANUAL [id number] 10:02:00* Test Item Value Reference Range Interpretation [...] MORPHOLOGY (test code = PLTMORPH) CBC W/MANUAL [id number] 10:02:00* Test Item Value Reference Range Interpretation [...] MORPHOLOGY (test code = PLTMORPH) CBC W/MANUAL [id number] 10:02:00* Test Item Value Reference Range Interpretation [...] code = PLTMORPH) - XR CHEST 1 [id number] 09:56:00 Name: BREE LINDSAY [facility] : 1975 Age/S:43 /M [address] [facility] Unit#:[id number] Loc: [place] [address] Phys: Tracy Cage MD Dis Date: PHONE #: [phone] Status: REG ER FAX #: [phone] Exam Date: 02/13/2019 Reason: CODE SEPSIS EXAMS: CPT CODE: [id number] XR CHEST 1 V 49184 REASON FOR EXAM: CODE SEPSIS Exam Order [...] IMPRESSION: No acute cardiopulmonary process. Location: [facility] Signed by Mulugeta Espinoza MD on 02/13/2019 at 0956 Reported and signed by: Mulugeta Espinoza MD CC: Tracy Cage MD; Keeley Beckman DO Technologist: Stone Sadler RT(R)(CT) Trnscrpt Data: 02/13/2019 (0956) t.SDR.RR31 Orig Print D/T: S: 02/13/2019 (0935) PAGE 1 Signed Report [id number] 16:17:00* Test Item Value Reference Range Interpretation Comments GLUBED (test code = GLUBED) 187 mg/dL 74-106 H Performed by certified chucking lathe operator at [facility] [id number] 11:57:00* Test Item Value Reference Range Interpretation Comments GLUBED (test code = GLUBED) 147 mg/dL 74-106 H Performed by certified chucking lathe operator at [facility] [id number] 07:34:00* Test Item Value Reference Range Interpretation Comments GLUBED (test code = GLUBED) 110 mg/dL 74-106 H Performed by certified chucking lathe operator at [facility] CBC W/MANUAL [id number] 05:59:00* Test Item Value Reference Range Interpretation [...] IMMAT) 0 % 0-0 N BASIC METABOLIC [id number] 05:25:00* Test Item Value Reference Range Interpretation Comments SODIUM (test code = NA) 138 mmol/L 136-145 N POTASSIUM (test code = K) 2.7 mmol/L 3.5-5.[address] [facility] sults called to [id number] by [place] 02/12/19 0525Critical results verified and [...] CA) 8.4 mg/dL 8.5-10.1 L CBC W/MANUAL [id number] 05:04:00* Test Item Value Reference Range Interpretation [...] MORPHOLOGY (test code = PLTMORPH) CBC W/MANUAL [id number] 05:04:00* Test Item Value Reference Range Interpretation [...] MORPHOLOGY (test code = PLTMORPH) CBC W/MANUAL [id number] 05:04:00* Test Item Value Reference Range Interpretation [...] MORPHOLOGY (test code = PLTMORPH) CBC W/MANUAL [id number] 05:04:00* Test Item Value Reference Range Interpretation [...] MORPHOLOGY (test code = PLTMORPH) CBC W/MANUAL [id number] 05:04:00* Test Item Value Reference Range Interpretation [...] interpreted taking into account the patients history. [id number] 19:42:00* Test Item Value Reference Range Interpretation Comments GLUBED (test code = GLUBED) 131 mg/dL 74-106 H Performed by certified chucking lathe operator at [facility] LACTIC [id number] 19:38:00* Test Item Value Reference Range Interpretation Comments LACTIC ACID (test code = LACT) 0.7 mmol/L 0.4-1.9 N [id number] 18:44:00* Test Item Value Reference Range Interpretation Comments GLUBED (test code = GLUBED) 129 mg/dL 74-106 H Performed by certified chucking lathe operator at [facility] [id number] 16:34:00* Test Item Value Reference Range Interpretation Comments GLUBED (test code = GLUBED) 66 mg/dL 74-106 L Performed by certified chucking lathe operator at [facility] [id number] 12:07:00* Test Item Value Reference Range Interpretation Comments GLUBED (test code = GLUBED) 285 mg/dL 74-106 H Performed by certified chucking lathe operator at [facility] - XR CHEST 1 [id number] 08:53:00 FAX: Faith Cook MD [phone] [place]: B St: [facility] FAX: Riley Zavala DO [phone] Name: BREE LINDSAY [facility] : 1975 Age/S: 43/M [address] [facility]: [id number] Loc: V.3017 [place] [address] Phys: Faith Roy MD Acct: [id number] Dis Date: Status: ADM IN PHONE #: [phone] Exam Date: 02/11/2019829 FAX #: [phone] Reason: Leukocytosis EXAMS: CPT CODE: [id number] XR CHEST 1 V 99665 HISTORY: Leukocytosis. COMPARISON: January 12, 2018. Location: [facility]. No acute infiltrates, effusion or congestion is [...] 293 mg/dL 74-106 H Performed by certified chucking lathe operator at [facility] CBC W/MANUAL [id number] 06:45:00* Test Item Value Reference Range Interpretation [...] IMMAT) 0 % 0-0 N BASIC METABOLIC [id number] 06:37:00* Test Item Value Reference Range Interpretation [...] CA) 8.6 mg/dL 8.5-10.1 N BASIC METABOLIC [id number] 06:31:00* Test Item Value Reference Range Interpretation [...] code = CA) mg/dL 8.5-10.1 CBC W/MANUAL [id number] 06:18:00* Test Item Value Reference Range Interpretation [...] MORPHOLOGY (test code = PLTMORPH) CBC W/MANUAL [id number] 06:18:00* Test Item Value Reference Range Interpretation [...] MORPHOLOGY (test code = PLTMORPH) CBC W/MANUAL [id number] 06:18:00* Test Item Value Reference Range Interpretation [...] MORPHOLOGY (test code = PLTMORPH) CBC W/MANUAL [id number] 06:18:00* Test Item Value Reference Range Interpretation [...] MORPHOLOGY (test code = PLTMORPH) CBC W/MANUAL [id number] 06:18:00* Test Item Value Reference Range Interpretation [...] PLATELET MORPHOLOGY (test code = PLTMORPH) URINALYSIS [id number] 02:01:00* Test Item Value Reference Range Interpretation [...] BE COLLECTED BY NURSEDRUGS OF ABUSE SCREEN [id number] 02:01:00* Test Item Value Reference Range Interpretation [...] Source? VoidedSAMPLE TO BE COLLECTED BY NURSEURINALYSIS [id number] 01:45:00* Test Item Value Reference Range Interpretation [...] BE COLLECTED BY NURSEDRUGS OF ABUSE SCREEN [id number] 01:45:00* Test Item Value Reference Range Interpretation [...] 02/10/192142Urine Source? VoidedSAMPLE TO BE COLLECTED BY [id number] 23:31:00* Test Item Value Reference Range Interpretation Comments GLUBED (test code = GLUBED) 223 mg/dL 74-106 H Performed by certified chucking lathe operator at [facility] [id number] 18:09:00* Test Item Value Reference Range Interpretation Comments GLUBED (test code = GLUBED) 201 mg/dL 74-106 H Performed by certified chucking lathe operator at [facility] [id number] 11:27:00* Test Item Value Reference Range Interpretation Comments GLUBED (test code = GLUBED) 291 mg/dL 74-106 H Performed by certified chucking lathe operator at [facility] [id number] 08:25:00* Test Item Value Reference Range Interpretation Comments GLUBED (test code = GLUBED) 288 mg/dL 74-106 H Performed by certified chucking lathe operator at [facility] - XR ABDOMEN AP 1 [id number] 08:01:00 FAX: Bobby Self MD [place]: B St: ADM FAX: Riley Zavala DO [phone] Name: BREE LINDSAY [facility] : 1975 Age/S: 43/M [address] [facility] Unit #: [id number] Loc: V.3017 [place] [address] Phys: Bobby Self MD Acct: [id number] Dis Date: Status: ADM IN PHONE #: [phone] Exam Date: 02/10/2019 08 FAX #: [phone] Reason: abdominal pain nausea and vomiting EXAMS: CPT CODE: [id number] XR ABDOMEN AP 1 V 39161 HISTORY: abdominal pain nausea and vomiting TECHNIQUE: [...] Self MD; Riley Beckman DO Technologist: RT LATA(R) Trnscrd Date/Time/By: 02/10/2019 (08) : By: [email or web address] Dimitry g Print D/T: S: 02/10/2019 (0615) PAGE 1 Signed Report PROCALCITONIN (PCT) 2019-02-10 [...] into account the patients history. BASIC METABOLIC [id number] 00:47:00* Test Item Value Reference Range Interpretation [...] CA) 9.1 mg/dL 8.5-10.1 N HEPATIC FUNCTION [id number] 00:47:00* Test Item Value Reference Range Interpretation [...] reference range due to change in reagent. [id number] 00:47:00* Test Item Value Reference Range Interpretation Comments LIPASE (test code = LIP) < 10 U/L 73.0-393.0 L CBC W/O [id number] 00:11:00* Test Item Value Reference Range Interpretation [...] code = MPV) 9.7 fL 6.7-11.0 N [id number] 07:24:00* Test Item Value Reference Range Interpretation Comments GLUBED (test code = GLUBED) 269 mg/dL 74-106 H Performed by certified chucking lathe operator at [facility] [id number] 20:19:00* Test Item Value Reference Range Interpretation Comments GLUBED (test code = GLUBED) 199 mg/dL 74-106 H Performed by certified chucking lathe operator at [facility] [id number] 16:56:00* Test Item Value Reference Range Interpretation Comments GLUBED (test code = GLUBED) 153 mg/dL 74-106 H Performed by certified chucking lathe operator at [facility] [id number] 11:42:00* Test Item Value Reference Range Interpretation Comments GLUBED (test code = GLUBED) 231 mg/dL 74-106 H Performed by certified chucking lathe operator at [facility] [id number] 08:17:00* Test Item Value Reference Range Interpretation Comments GLUBED (test code = GLUBED) 160 mg/dL 74-106 H Performed by certified chucking lathe operator at [facility] CBC W/AUTO [id number] 06:43:00* Test Item Value Reference Range Interpretation [...] NRBC#) 0.00 K/mm3 0.0-0.1 N BASIC METABOLIC [id number] 06:43:00* Test Item Value Reference Range Interpretation [...] CA) 8.8 mg/dL 8.5-10.1 N BASIC METABOLIC [id number] 06:26:00* Test Item Value Reference Range Interpretation [...] (test code = CA) mg/dL 8.5-10.1 URINALYSIS [id number] 23:07:00* Test Item Value Reference Range Interpretation [...] (test code = LEUUR) 25 Jeannine/uL (Trace) Jenanine/uL NEGATIVE A UA WBC (test code = WBCU) 6-10 per HPF 0-5 A UA RBC (test code = RBCU) 6-10 #/HPF 0-5 A UA EPITHELIAL CELLS (test code = EPIU) FEW per HPF FEW UA BACTERIA (test code = BACU) FEW #/HPF NONE A UA MUCUS (test code = MUCU) MODERATE #/LPF FEW A Urine Source? Clean CatchDRUGS OF ABUSE SCREEN [id number] 23:07:00* Test Item Value Reference Range Interpretation [...] NEGATIVE <300 ng/mL Urine Source? Clean CatchURINALYSIS [id number] 22:44:00* Test Item Value Reference Range Interpretation [...] Urine Source? Clean CatchDRUGS OF ABUSE SCREEN [id number] 22:44:00* Test Item Value Reference Range Interpretation [...] <300 ng/mL Urine Source? Clean CatchBASIC METABOLIC [id number] 18:12:00* Test Item Value Reference Range Interpretation [...] CA) 10.0 mg/dL 8.5-10.1 N HEPATIC FUNCTION [id number] 18:12:00* Test Item Value Reference Range Interpretation [...] reference range due to change in reagent. [id number] 18:12:00* Test Item Value Reference Range Interpretation Comments LIPASE (test code = LIP) < 10 U/L 73.0-393.0 L BASIC METABOLIC [id number] 18:04:00* Test Item Value Reference Range Interpretation [...] code = CA) mg/dL 8.5-10.1 HEPATIC FUNCTION [id number] 18:04:00* Test Item Value Reference Range Interpretation [...] TOTAL (test code = ALKP) IUnit/L 45-117 [id number] 18:04:00* Test Item Value Reference Range Interpretation Comments LIPASE (test code = LIP) U/L 73.0-393.0 CBC W/O [id number] 18:00:00* Test Item Value Reference Range Interpretation [...] code = MPV) 10.1 fL 6.7-11.0 N [id number] 17:11:00* Test Item Value Reference Range Interpretation Comments GLUBED (test code = GLUBED) 108 mg/dL 74-106 H Performed by certified chucking lathe operator at [facility] BIZLOBOSTZV5390-00-20 14:49:00 RUN DATE: 12/21/18 Export Screwpulp Lab PAGE 1 RUN TIME: 1449 Specimen Inqui ry RUN USER: INTERFACE PATIENT: BREE LINDSAY ACCT #: [id number] LOC: VDon3SOBS U #: [id number] AGE/SX: 43/M ROOM: [facility] RE12/16/18REG DR: Olegario Diaz MD : 75 BED: A DIS: 12/19/18 STATUS: DIS IN TLOC: SPEC #: [id number] RECD: 12/20/18 STATUS: SHAHRAM LUEVANO #: [id number] HUY: 12/18/18- SUBM DR: Sav Coffey MD ENTERED: 12/20/18 SP TYPE: GALLBLADD OTHR DR: Levi Natarajan i, MD, Shao-Chun DOORDERED: LINDA COPIES TO: Levi Lakhani MD [address] [place] [address] Sav Coffey MD [address] [place] [address] [place] [address] [place] [address] MARKERS: ABNORMAL TISSUE, GALLBL ADDER PROCEDURES: LINDA (12/21/18-115) TISSUES: GALLBLADDER, NOS CLINICAL HISTORY COLLECTION DATE: 12/18/18 CHOLECYSTITIS FIN AL DIAGNOSIS Gallbladder, cholecystectomy: PATCHY MILD CHRONIC ACALCUL OUS CHOLECYSTITIS NEGATIVE FOR MALIGNANCY RRB/sm A 97632 CONTINUED ON NEXT PAGE RUN DATE : 12/21/18 [facility] Lab PAGE 2 RUN TIME: 1449 Specimen Inquiry RUN USER: INTERFACE SPEC #: [id number] PATIENT: BREE LINDSAY #V [id number] (Continued) MACROSCOPIC The specimen is r eceived [...] thickness. No foc al lesions are identified. Magnetic Locater tissue is submitted in a single violeta sette. GROSS PERFORMED AT [facility] [address] [place] [address] (p)[phone] MICROSCOPIC All of the stains, including any controls performed, st ain appropriately. MICROSCOPIC PERFORMED AT [facility] [address] [place] [address] (Y) PERFORMING SITE Diagnosis performed at: [facility], [address] [place] [address] Signed ORLIN E ON FILE Dino Patton MD 12/21/18 1449 END OF REPORT GLUBED 2018-12-19 11:45:00* Test Item Value Reference Range Interpretation Comments GLUBED (test code = GLUBED) 238 mg/dL 74-106 H Performed by certified chucking lathe operator at [facility] BASIC METABOLIC [id number] 08:28:00* Test Item Value Reference Range Interpretation [...] code = CA) 8.2 mg/dL 8.5-10.1 L [id number] 08:28:00* Test Item Value Reference Range Interpretation Comments MAGNESIUM (test code = MAG) 1.5 mg/dL 1.8-2.4 L BASIC METABOLIC [id number] 08:21:00* Test Item Value Reference Range Interpretation [...] CALCIUM (test code = CA) mg/dL 8.5-10.1 [id number] 08:21:00* Test Item Value Reference Range Interpretation Comments MAGNESIUM (test code = MAG) mg/dL 1.8-2.4 CBC W/AUTO [id number] 07:56:00* Test Item Value Reference Range Interpretation [...] DIFF REQUIRED (test code = MDIFF) NO [id number] 07:38:00* Test Item Value Reference Range Interpretation Comments GLUBED (test code = GLUBED) 277 mg/dL 74-106 H Performed by certified chucking lathe operator at [facility] [id number] 20:34:00* Test Item Value Reference Range Interpretation Comments GLUBED (test code = GLUBED) 165 mg/dL 74-106 H Performed by certified chucking lathe operator at [facility] [id number] 19:18:00* Test Item Value Reference Range Interpretation Comments GLUBED (test code = GLUBED) 203 mg/dL 74-106 H Performed by certified chucking lathe operator at [facility] BASIC METABOLIC [id number] 11:47:00* Test Item Value Reference Range Interpretation [...] mg/dL 8.5-10.1 L PT IN SURGERY PAIGE [id number] V.LAB.[facility] 12/18/18 [id number] 11:42:00* Test Item Value Reference Range Interpretation Comments GLUBED (test code = GLUBED) 360 mg/dL 74-106 H Performed by certified chucking lathe operator at [facility] BASIC METABOLIC [id number] 11:41:00* Test Item Value Reference Range Interpretation [...] CA) mg/dL 8.5-10.1 PT IN SURGERY PAIGE POD4050 V.LAB.2 12/18/18 0926CBC W/AUTO [id number] 11:11:00* Test Item Value Reference Range Interpretation [...] = MDIFF) NO PT IN SURGERY RN HPD1277 V.LAB.KP2 12/18/18 3615YBQCOY9453-01-81 03:55:00* Test Item Value Reference Range Interpretation Comments GLUBED (test code = GLUBED) 269 mg/dL 74-106 H Performed by certified chucking lathe operator at [facility] [id number] 23:58:00* Test Item Value Reference Range Interpretation Comments GLUBED (test code = GLUBED) 233 mg/dL 74-106 H Performed by certified chucking lathe operator at [facility] [id number] 09:16:00* Test Item Value Reference Range Interpretation Comments GLUBED (test code = GLUBED) 179 mg/dL 74-106 H Performed by certified chucking lathe operator at [facility] BASIC METABOLIC [id number] 06:40:00* Test Item Value Reference Range Interpretation Comments SODIUM (test code = NA) 141 mmol/L 136-145 N POTASSIUM (test code = K) 2.8 mmol/L 3.5-5.1 LL Re sults called to TTA0010 by V.LAB.[facility] 12/17/18 0639Critical results verified and [...] code = CA) 8.3 mg/dL 8.5-10.1 L [id number] 06:40:00* Test Item Value Reference Range Interpretation Comments MAGNESIUM (test code = MAG) 1.6 mg/dL 1.8-2.4 L B-TYPE NATRIURETIC [id number] 06:34:00* Test Item Value Reference Range Interpretation Comments B-TYPE NATRIURETIC PEPTIDE (test code = BNP) 128.51 pgram/mL 0-100 H CBC W/AUTO [id number] 05:33:00* Test Item Value Reference Range Interpretation [...] code = NRBC#) 0.00 K/mm3 0.0-0.1 N [id number] 02:55:00* Test Item Value Reference Range Interpretation Comments GLUBED (test code = GLUBED) 102 mg/dL 74-106 N Performed by certified chucking lathe operator at [facility] [id number] 21:18:00* Test Item Value Reference Range Interpretation Comments GLUBED (test code = GLUBED) 224 mg/dL 74-106 H Performed by certified chucking lathe operator at [facility] [id number] 16:43:00* Test Item Value Reference Range Interpretation Comments GLUBED (test code = GLUBED) 158 mg/dL 74-106 H Performed by certified chucking lathe operator at [facility] DRUGS OF ABUSE SCREEN [id number] 14:45:00* Test Item Value Reference Range Interpretation [...] NEGATIVE <300 ng/mL DRUGS OF ABUSE SCREEN [id number] 14:24:00* Test Item Value Reference Range Interpretation [...] ng/mL - HEPA IMAG INCL GB W [id number] 14:14:00 FAX: Leia Kendrick [place]: B St: ADM FAX: Bobby Self MD FAX: Riley Zavala DO [phone] Name: BREE LINDSAY [facility] : 1975 Age/S: 43/M [address] Unit #: [id number] Loc: V.[address] [place] [address] Phys: Leia Kendrick MSN Acct: [id number] Dis Date: Status: ADM IN ONE #: [phone] Exam Date: 12/16/20181411 FAX #: [phone] Reason: recurrent n/v EXAMS: CPT CODE: [id number] HE PA IMAG INCL GB W PHA 92541 HISTORY: recur rent n/v EXAM: NUCLEAR MEDICINE [...] DO Technologist: ESAU ASHRAF Trnscrd Date/Time/By: 12/16/2018 (2412) : By: [email or web address] 1 Orig Print D/T: S: 12/16/2018 (4401) PAGE 1 Signed Report GLUBED 2018-12-16 11:12:00* Test Item Value Reference Range Interpretation Comments GLUBED (test code = GLUBED) 133 mg/dL 74-106 H Performed by certified chucking lathe operator at [facility] - US ABDOMEN [id number] 10:25:00 Name: BREE LINDSAY [facility] : 1975 Age/S: 43 / M [address] Unit #: [id number] Loc: [place] [address] Phys: Marcus Kendrickjammie Arce MSN Acct: [id number] Dis Date: Status: ADM IN PHONE #: [phone] Exam Date: 12/16/2018 0940 FAX #: [phone] Reason: n/v EXAMS: CPT CODE: [id number] US ABDOMEN COMPLETE 23884 REASON FOR EXAM: n/v EXAM ORDER DATE: [...] 1 Signed Report (CONTINUED) Name: BREE LINDSAY [facility] : 1975 Age/S: 43 / M [address] Unit #: [id number] Loc: [place] [address] Phys: Leia Kendrick MSN Acct: [id number] Dis Date: Status: AD M IN PHONE #: [phone] Exam Date: 12/16 0940 FAX #: [phone] Reason: n/v EXAMS: CPT CODE: [id number] US ABDOMEN COMPLETE 76 700 <Continued> Left [...] Riley Beckman DO Technologist: NOEMY OLVERA RT(R),RDMS [facility] Date/Time: 12/16/2018 (1025) [email or web address] Orig Print D/T: S: 12/16/2018 (1027) Probe: PAGE 2 Signed Report [id number] 07:04:00* Test Item Value Reference Range Interpretation Comments GLUBED (test code = GLUBED) 177 mg/dL 74-106 H Performed by certified chucking lathe operator at [facility] URINALYSIS [id number] 00:25:00* Test Item Value Reference Range Interpretation [...] FEW A Urine Source? Clean CatchBASIC METABOLIC [id number] 00:22:00* Test Item Value Reference Range Interpretation [...] CA) 8.8 mg/dL 8.5-10.1 N HEPATIC FUNCTION [id number] 00:22:00* Test Item Value Reference Range Interpretation [...] reference range due to change in reagent. [id number] 00:22:00* Test Item Value Reference Range Interpretation Comments LIPASE (test code = LIP) < 10 U/L 73.0-393.0 L [id number]-[id number] 00:22:00* Test Item Value Reference Range Interpretation Comments TROPONIN-I (test code = TROPI) <0.015 ng/mL 0-0.045 N BASIC METABOLIC [id number] 00:12:00* Test Item Value Reference Range Interpretation [...] code = CA) mg/dL 8.5-10.1 HEPATIC FUNCTION [id number] 00:12:00* Test Item Value Reference Range Interpretation [...] TOTAL (test code = ALKP) IUnit/L 45-117 [id number] 00:12:00* Test Item Value Reference Range Interpretation Comments LIPASE (test code = LIP) U/L 73.0-393.0 [id number] 00:12:00* Test Item Value Reference Range Interpretation Comments TROPONIN-I (test code = TROPI) ng/mL 0-0.045 CBC W/O [id number] 00:06:00* Test Item Value Reference Range Interpretation [...] MPV) 10.2 fL 6.7-11.0 N BASIC METABOLIC [id number] 08:09:00* Test Item Value Reference Range Interpretation [...] CA) 9.0 mg/dL 8.5-10.1 N HEPATIC FUNCTION [id number] 08:09:00* Test Item Value Reference Range Interpretation [...] reference range due to change in reagent. [id number] 08:09:00* Test Item Value Reference Range Interpretation Comments LIPASE (test code = LIP) < 10 U/L 73.0-393.0 L [id number] 08:09:00* Test Item Value Reference Range Interpretation Comments TROPONIN-I (test code = TROPI) <0.015 ng/mL 0-0.045 N BASIC METABOLIC [id number] 07:52:00* Test Item Value Reference Range Interpretation [...] code = CA) mg/dL 8.5-10.1 HEPATIC FUNCTION [id number] 07:52:00* Test Item Value Reference Range Interpretation [...] TOTAL (test code = ALKP) IUnit/L 45-117 [id number] 07:52:00* Test Item Value Reference Range Interpretation Comments LIPASE (test code = LIP) U/L 73.0-393.0 [id number] 07:52:00* Test Item Value Reference Range Interpretation Comments TROPONIN-I (test code = TROPI) ng/mL 0-0.045 CBC W/O [id number] 07:40:00* Test Item Value Reference Range Interpretation [...] = MPV) 10.5 fL 6.7-11.0 N POC-Glucose [id number] 17:19:00* Test Item Value Reference Range Interpretation Comments POC-Glucose Meter (test code = 1538) 266 mg/dL 70-110 H TESTED AT [address] [address] Lab Interpretation (test code = 30053-8) [facility] [id number] 17:19:00* Test Item Value Reference Range Interpretation Comments POC-GLUCOSE METER (BEAKER) (test code = 1538) 266 mg/dL 70-110 H TESTED AT [address] [address] ECG 12 [id number] 14:27:26Interface, External Ris In - 12/14/2018 2:27 PM CDTVentricular Rate 78 BPMAtrial Rate 78 BPMP-R Interval 168 msQRS Duration 80 msQ-T Interval 350 msQTC Calculation(Bazett) 399 msP [place] 52 degreesR [place] -14 degreesT [place] 35 degreesNormal sinus rhythmNormal ECGNo previous ECGs availableConfirmed by MD MEGGAN, MARCELINO ([id number]) on 12/14/2018 2:27:24 [facility] [id number] 12:17:00* Test Item Value Reference Range Interpretation Comments POC-GLUCOSE METER (BEAKER) (test code = 1538) 240 mg/dL 70-110 H TESTED AT [address] [address] POCT-GLUCOSE [id number] 08:12:00* Test Item Value Reference Range Interpretation Comments POC-GLUCOSE METER (BEAKER) (test code = 1538) 184 mg/dL 70-110 H TESTED AT [facility] [address] [address] Basic metabolic [id number] 06:18:00* Test Item Value Reference Range Interpretation [...] mg/dL 70-105 H Calcium (test code = 30350-6) 8.7 mg/dL 8.4-10.2 EGFR (test code = 65176-4) 87 mL/min/1.73 sq m ESTIMATED GFR IS NOT ACCURATE CREATININE CLEARANCE IN PREDICTING GLOMERULAR FILTRATION RATE. ESTIMATED GFR IS NOT APPLICABLE FOR DIALYSIS PATIENTS. Lab Interpretation (test code = 06295-1) [facility]normal [facility] 06:18:00* Test Item Value Reference Range Interpretation Comments Magnesium (test code = 94398-0) 1.6 mg/dL 1.6-2.6 Lab Interpretation (test code = 78576-0) Normal [facility] 06:18:00* Test Item Value Reference Range Interpretation Comments Phosphorus (test code = 2777-1) 2.2 mg/dL 2.3-4.7 L Lab Interpretation (test code = 67007-7) Abnormal [facility]US2019-[facility]-17 06:18:00* Test Item Value Reference Range Interpretation Comments PHOSPHORUS (BEAKER) (test code = 604) 2.2 mg/dL 2.3-4.7 L [id number] 06:18:00* Test Item Value Reference Range Interpretation Comments MAGNESIUM (BEAKER) (test code = 627) 1.6 mg/dL 1.6-2.6 BASIC METABOLIC [id number] 06:18:00* Test Item Value Reference Range Interpretation [...] PATIENTS. CBC with platelet count + automated [id number] 06:16:00* Test Item Value Reference Range Interpretation [...] clinical correlation required. MPV (test code = 85887-8) 10.4 fL 9.4-12.4 nRBC (test code = [...] % 0-1 Lab Interpretation (test code = 10005-9) [facility]O JQSIHWEZKXMP1379-61-74 06:16:00* Test Item Value Reference Range Interpretation [...] code = 2801) 0 % 0-1 POCT-GLUCOSE [id number] 21:15:00* Test Item Value Reference Range Interpretation Comments POC-GLUCOSE METER (BEAKER) (test code = 1538) 307 mg/dL 70-110 H Notified RN or MD Patient refused repeat test/TESTED AT [facility] [address] [address] Hemoglobin [id number] 19:48:00* Test Item Value Reference Range Interpretation Comments Hemoglobin A1C (test code = 4548-4) 8.4 % 4.3-6.1 H Lab Interpretation (test code = 21951-6) [facility] [id number] 19:48:00* Test Item Value Reference Range Interpretation Comments HEMOGLOBIN A1C (BEAKER) (test code = 368) 8.4 % 4.3-6.1 H Lipid [id number] 16:17:00* Test Item Value Reference Range Interpretation Comments Triglycerides (test code = 2571-8) 101 mg/dL Cholesterol (test code = 2093-3) 151 mg/dL HDL (test code = 2085-9) 38 mg/dL LDL Calculated (test code = 36462-8) 93 mg/dL BESS (test code = BESS) Triglyceride Reference Range : Low Risk <150 Borderline 150-199 High Risk 200-499 Very High Risk >=500 Cholesterol Reference Range: Low Risk <200 Borderline 200-239 High Risk >240 HDL Cholesterol Reference Range: Low Risk >=60 High Risk <40 LDL Cholesterol Reference Range: Optimal <100 Near Optimal 100-129 Borderline 130-159 High 160-189 Very High >=190 [facility] function [id number] 16:17:00* Test Item Value Reference Range Interpretation Comments Protein, Total (test code = 2885-2) 6.9 6.0- 8.3 gm/dL Albumin (test code = 19118-6) 3.9 g/dL 3.5-5 Total Bilirubin (test code = 1975-2) 0.5 mg/dL 0.2-1.2 Bilirubin, Direct (test code = 1968-7) 0.2 mg/dL 0.1-0.5 Alkaline Phosphatase (test code = 6768-6) 80 U/L 40-150 AST (test code = 1920-8) 18 U/L 5-34 ALT (test code = 1742-6) 15 U/L 6-55 Lab Interpretation (test code = 52033-2) Normal [facility] Hospital[facility]IPID [id number] 16:17:00* Test Item Value Reference Range Interpretation [...] High 160-189 Very High >=190 BASIC METABOLIC [id number] 16:17:00* Test Item Value Reference Range Interpretation [...] NOT APPLICABLE FOR DIALYSIS PATIENTS. HEPATIC FUNCTION [id number] 16:17:00* Test Item Value Reference Range Interpretation [...] U/L 6-55 CBC W/PLT COUNT & AUTO QDXWCDYEVUJV6236-10-33 16:07:00* Test Item Value Reference Range Interpretation [...] code = 2801) 0 % 0-1 POCT-GLUCOSE [id number] 16:01:00* Test Item Value Reference Range Interpretation Comments POC-GLUCOSE METER (BEAKER) (test code = 1538) 265 mg/dL 70-110 H TESTED AT [facility] [address] [address] POCT-GLUCOSE [id number] 12:34:00* Test Item Value Reference Range Interpretation Comments POC-GLUCOSE METER (BEAKER) (test code = 1538) 271 mg/dL 70-110 H TESTED AT [facility] [address] [address] Magnesium Znttu5090-12-15 18:51:00* Test Item Value Reference Range Interpretation Comments Magnesium Level (test code = 34955-3) 1.8 1.3-2.1 [facility] 18:51:00* Test Item Value Reference Range Interpretation Comments Lipase (test code = 3040-3) < 4 8-78 L [facility]Magn[facility] Mjoxf9523-42-74 18:51:00* Test Item Value Reference Range Interpretation Comments Magnesium Level (test code = 61504-7) 1.8 1.3-2.1 [facility]2019-09-15 18:51:00* Test Item Value Reference Range Interpretation Comments Lipase (test code = 3040-3) < 4 8-78 L [facility] CenterMaesium Xnclv7633-19-60 18:51:00* Test Item Value Reference Range Interpretation Comments Magnesium Level (test code = 30895-3) 1.8 1.3-2.1 [facility]2019-09-15 18:51:00* Test Item Value Reference Range Interpretation Comments Lipase (test code = 3040-3) < 4 8-78 L [facility]2019-09-15 18:51:00* Test Item Value Reference Range Interpretation Comments Lipase (test code = 3040-3) < 4 8-78 L [facility] Pkpstgs4473-70-41 20:52:00* Test Item Value Reference Range Interpretation Comments Blood Culture (test code = 69283732) NO GROWTH AFTER 5 DAYS, FINAL REPORT [facility] Jmwwfzc1830-91-89 20:52:00* Test Item Value Reference Range Interpretation Comments Blood Culture (test code = 27484777) NO GROWTH AFTER 5 DAYS, FINAL REPORT [facility] Ymlxtwm9917-97-72 20:52:00* Test Item Value Reference Range Interpretation Comments Blood Culture (test code = 71121079) NO GROWTH AFTER 5 DAYS, FINAL REPORT [facility] Gpqcjfs2304-48-79 20:52:00* Test Item Value Reference Range Interpretation Comments Blood Culture (test code = 31890418) NO GROWTH AFTER 5 DAYS, FINAL REPORT [facility] Rorjpte6336-92-03 15:19:00* Test Item Value Reference Range Interpretation Comments Bedside Glucose (test code = 05122-7) 261 70-120 H Meter ID: [id number] [facility] Glucose 2018-11-25 15:19:00* Test Item Value Reference Range Interpretation Comments Bedside Glucose (test code = 27769-8) 261 70-120 H Meter ID: [id number] [facility]mas Medical Center Glucose 2018-11-25 15:19:00* Test Item Value Reference Range Interpretation Comments Bedside Glucose (test code = 96341-8) 261 70-120 H Meter ID: [id number] [facility]mas Medical Center Glucose 2018-11-25 15:19:00* Test Item Value Reference Range Interpretation Comments Bedside Glucose (test code = 96034-4) 261 70-120 H Meter ID: [id number] Medical CenterWhite Blood Count 2018-11-25 06:12:00* Test Item Value Reference Range Interpretation Comments White Blood Count (test code = 6690-2) 10.09 4.8-10.8 [facility] CenterRed Blood Boitu1500-31-35 06:12:00* Test Item Value Reference Range Interpretation Comments Red Blood Count (test code = 789-8) 3.20 4.3-5.7 L [facility] CenterHemoglobin2019-08-29 06:12:00* Test Item Value Reference Range Interpretation Comments Hemoglobin (test code = 79405-0) 9.0 14.0-18.0 L [facility] CenterHematocrit2019-08-29 06:12:00* Test Item Value Reference Range Interpretation Comments Hematocrit (test code = 4544-3) 28.1 38.2-49.6 L [facility] CenterMean Corpuscular Jikfch1337-84-60 06:12:00* Test Item Value Reference Range Interpretation Comments Mean Corpuscular Volume (test code = 787-2) 87.8 81-99 [facility] CenterMean Corpuscular Ptgldbmumt6605-91-72 06:12:00* Test Item Value Reference Range Interpretation Comments Mean Corpuscular Hemoglobin (test code = 785-6) 28.1 28-32 [facility] CenterMean Corpuscular Hemoglobin Concent 2018-11-25 06:12:00* Test Item Value Reference Range Interpretation Comments Mean Corpuscular Hemoglobin Concent (test code = 786-4) 32.0 31-35 [facility] CenterRed Cell Distribution Glwkr6151-18-65 06:12:00* Test Item Value Reference Range Interpretation Comments Red Cell Distribution Width (test code = 19441-8) 13.7 11.7 -14.4 [facility] CenterPlatelet Mmjdv8793-85-37 06:12:00* Test Item Value Reference Range Interpretation Comments Platelet Count (test code = 777-3) 185 140-360 [facility] CenterNeutrophils (%) (Auto)2018-11-25 06:12:00 * Test Item Value Reference Range Interpretation Comments Neutrophils (%) (Auto) (test code = 88399-1) 60.5 38.7-80.0 [facility] CenterLymphocytes (%) (Auto)2018-11-25 06:12:00 * Test Item Value Reference Range Interpretation Comments Lymphocytes (%) (Auto) (test code = 736-9) 24.7 18.0-39.1 [facility] CenterMonocytes (%) (Auto)2018-11-25 06:12:00* Test Item Value Reference Range Interpretation Comments Monocytes (%) (Auto) (test code = 5905-5) 12.2 4.4-11.3 H [facility] CenterEosinophils (%) (Auto)2018-11-25 06:12:00 * Test Item Value Reference Range Interpretation Comments Eosinophils (%) (Auto) (test code = 713-8) 2.0 0.0-6.0 [facility] CenterBasophils (%) (Auto)2018-11-25 06:12:00* Test Item Value Reference Range Interpretation Comments Basophils (%) (Auto) (test code = 706-2) 0.5 0.0-1.0 [facility] CenterIM GRANULOCYTES %2018-11-25 06:12:00* Test Item Value Reference Range Interpretation Comments IM GRANULOCYTES % (test code = IM GRANULOCYTES %) 0.1 0.0- 1.0 [facility] CenterNeutrophils # (Auto)2018-11-25 06:12:00* Test Item Value Reference Range Interpretation Comments Neutrophils # (Auto) (test code = 751-8) 6.1 2.1-6.9 [facility] CenterLymphocytes # (Auto)2018-11-25 06:12:00* Test Item Value Reference Range Interpretation Comments Lymphocytes # (Auto) (test code = 82502-6) 2.5 1.0-3.2 [facility] CenterMonocytes # (Auto)2018-11-25 06:12:00* Test Item Value Reference Range Interpretation Comments Monocytes # (Auto) (test code = 742-7) 1.2 0.2-0.8 H [facility] CenterEosinophils # (Auto)2018-11-25 06:12:00* Test Item Value Reference Range Interpretation Comments Eosinophils # (Auto) (test code = 711-2) 0.2 0.0-0.4 [facility] CenterBasophils # (Auto)2018-11-25 06:12:00* Test Item Value Reference Range Interpretation Comments Basophils # (Auto) (test code = 704-7) 0.1 0.0-0.1 [facility] CenterAbsolute Immature Granulocyte (auto 2018-11-25 06:12:00* Test Item Value Reference Range Interpretation Comments Absolute Immature Granulocyte (auto (zeenat t code = Absolute Immature Granulocyte (auto) 0.01 0-0.1 [facility] CenterWhite Blood Yahim1749-60-20 06:12:00* Test Item Value Reference Range Interpretation Comments White Blood Count (test code = 6690-2) 10.09 4.8-10.8 [facility] CenterRed Blood Kzvaw6041-68-68 06:12:00* Test Item Value Reference Range Interpretation Comments Red Blood Count (test code = 789-8) 3.20 4.3-5.7 L [facility] CenterHemoglobin2019-08-29 06:12:00* Test Item Value Reference Range Interpretation Comments Hemoglobin (test code = 12251-0) 9.0 14.0-18.0 L [facility] CenterHematocrit2019-08-29 06:12:00* Test Item Value Reference Range Interpretation Comments Hematocrit (test code = 4544-3) 28.1 38.2-49.6 L [facility] CenterMean Corpuscular Ewqums2673-06-55 06:12:00* Test Item Value Reference Range Interpretation Comments Mean Corpuscular Volume (test code = 787-2) 87.8 81-99 [facility] CenterMean Corpuscular Pirxaxdczf2489-94-51 06:12:00* Test Item Value Reference Range Interpretation Comments Mean Corpuscular Hemoglobin (test code = 785-6) 28.1 28-32 [facility] CenterMean [facility] Hemoglobin Concent 2018-11-25 06:12:00* Test Item Value Reference Range Interpretation Comments Mean Corpuscular Hemoglobin Concent (test code = 786-4) 32.0 31-35 [facility] CenterRed Cell Distribution Lgxtz7393-13-30 06:12:00* Test Item Value Reference Range Interpretation Comments Red Cell Distribution Width (test code = 05763-2) 13.7 11.7 -14.4 [facility] CenterPlatelet Jzciq4929-93-19 06:12:00* Test Item Value Reference Range Interpretation Comments Platelet Count (test code = 777-3) 185 140-360 [facility] CenterNeutrophils (%) (Auto)2018-11-25 06:12:00 * Test Item Value Reference Range Interpretation Comments Neutrophils (%) (Auto) (test code = 07274-7) 60.5 38.7-80.0 [facility] CenterLymphocytes (%) (Auto)2018-11-25 06:12:00 * Test Item Value Reference Range Interpretation Comments Lymphocytes (%) (Auto) (test code = 736-9) 24.7 18.0-39.1 [facility] CenterMonocytes (%) (Auto)2018-11-25 06:12:00* Test Item Value Reference Range Interpretation Comments Monocytes (%) (Auto) (test code = 5905-5) 12.2 4.4-11.3 H [facility] CenterEosinophils (%) (Auto)2018-11-25 06:12:00 * Test Item Value Reference Range Interpretation Comments Eosinophils (%) (Auto) (test code = 713-8) 2.0 0.0-6.0 [facility] CenterBasophils (%) (Auto)2018-11-25 06:12:00* Test Item Value Reference Range Interpretation Comments Basophils (%) (Auto) (test code = 706-2) 0.5 0.0-1.0 [facility] CenterIM GRANULOCYTES %2018-11-25 06:12:00* Test Item Value Reference Range Interpretation Comments IM GRANULOCYTES % (test code = IM GRANULOCYTES %) 0.1 0.0- 1.0 [facility] CenterNeutrophils # (Auto)2018-11-25 06:12:00* Test Item Value Reference Range Interpretation Comments Neutrophils # (Auto) (test code = 751-8) 6.1 2.1-6.9 [facility] CenterLymphocytes # (Auto)2018-11-25 06:12:00* Test Item Value Reference Range Interpretation Comments Lymphocytes # (Auto) (test code = 05809-2) 2.5 1.0-3.2 [facility] CenterMonocytes # (Auto)2018-11-25 06:12:00* Test Item Value Reference Range Interpretation Comments Monocytes # (Auto) (test code = 742-7) 1.2 0.2-0.8 H [facility] CenterEosinophils # (Auto)2018-11-25 06:12:00* Test Item Value Reference Range Interpretation Comments Eosinophils # (Auto) (test code = 711-2) 0.2 0.0-0.4 [facility] CenterBasophils # (Auto)2018-11-25 06:12:00* Test Item Value Reference Range Interpretation Comments Basophils # (Auto) (test code = 704-7) 0.1 0.0-0.1 [facility] CenterAbsolute Immature Granulocyte (auto 2018-11-25 06:12:00* Test Item Value Reference Range Interpretation Comments Absolute Immature Granulocyte (auto (zeenat t code = Absolute Immature Granulocyte (auto) 0.01 0-0.1 [facility] CenterWhite Blood Wvxjk5422-35-04 06:12:00* Test Item Value Reference Range Interpretation Comments White Blood Count (test code = 6690-2) 10.09 4.8-10.8 [facility] CenterRed Blood Vgjmr2523-90-36 06:12:00* Test Item Value Reference Range Interpretation Comments Red Blood Count (test code = 789-8) 3.20 4.3-5.7 L [facility] CenterHemoglobin2019-08-29 06:12:00* Test Item Value Reference Range Interpretation Comments Hemoglobin (test code = 45326-1) 9.0 14.0-18.0 L [facility] CenterHematocrit2019-08-29 06:12:00* Test Item Value Reference Range Interpretation Comments Hematocrit (test code = 4544-3) 28.1 38.2-49.6 L [facility] CenterMean Corpuscular Svtovn0777-38-79 06:12:00* Test Item Value Reference Range Interpretation Comments Mean Corpuscular Volume (test code = 787-2) 87.8 81-99 [facility] CenterMean Corpuscular Gjpwnrygwk2739-77-44 06:12:00* Test Item Value Reference Range Interpretation Comments Mean Corpuscular Hemoglobin (test code = 785-6) 28.1 28-32 [facility] CenterMean Corpuscular Hemoglobin Concent 2018-11-25 06:12:00* Test Item Value Reference Range Interpretation Comments Mean Corpuscular Hemoglobin Concent (test code = 786-4) 32.0 31-35 [facility] CenterRed Cell Distribution Ffvtf1312-88-82 06:12:00* Test Item Value Reference Range Interpretation Comments Red Cell Distribution Width (test code = 48828-0) 13.7 11.7 -14.4 [facility] CenterPlatelet Evwyy3925-11-63 06:12:00* Test Item Value Reference Range Interpretation Comments Platelet Count (test code = 777-3) 185 140-360 [facility] CenterNeutrophils (%) (Auto)2018-11-25 06:12:00 * Test Item Value Reference Range Interpretation Comments Neutrophils (%) (Auto) (test code = 33980-0) 60.5 38.7-80.0 [facility] CenterLymphocytes (%) (Auto)2018-11-25 06:12:00 * Test Item Value Reference Range Interpretation Comments Lymphocytes (%) (Auto) (test code = 736-9) 24.7 18.0-39.1 [facility] CenterMonocytes (%) (Auto)2018-11-25 06:12:00* Test Item Value Reference Range Interpretation Comments Monocytes (%) (Auto) (test code = 5905-5) 12.2 4.4-11.3 H [facility] CenterEosinophils (%) (Auto)2018-11-25 06:12:00 * Test Item Value Reference Range Interpretation Comments Eosinophils (%) (Auto) (test code = 713-8) 2.0 0.0-6.0 [facility] CenterBasophils (%) (Auto)2018-11-25 06:12:00* Test Item Value Reference Range Interpretation Comments Basophils (%) (Auto) (test code = 706-2) 0.5 0.0-1.0 [facility] CenterIM GRANULOCYTES %2018-11-25 06:12:00* Test Item Value Reference Range Interpretation Comments IM GRANULOCYTES % (test code = IM GRANULOCYTES %) 0.1 0.0- 1.0 [facility] CenterNeutrophils # (Auto)2018-11-25 06:12:00* Test Item Value Reference Range Interpretation Comments Neutrophils # (Auto) (test code = 751-8) 6.1 2.1-6.9 [facility] CenterLymphocytes # (Auto)2018-11-25 06:12:00* Test Item Value Reference Range Interpretation Comments Lymphocytes # (Auto) (test code = 60755-8) 2.5 1.0-3.2 [facility] CenterMonocytes # (Auto)2018-11-25 06:12:00* Test Item Value Reference Range Interpretation Comments Monocytes # (Auto) (test code = 742-7) 1.2 0.2-0.8 H [facility] CenterEosinophils # (Auto)2018-11-25 06:12:00* Test Item Value Reference Range Interpretation Comments Eosinophils # (Auto) (test code = 711-2) 0.2 0.0-0.4 [facility] CenterBasophils # (Auto)2018-11-25 06:12:00* Test Item Value Reference Range Interpretation Comments Basophils # (Auto) (test code = 704-7) 0.1 0.0-0.1 [facility] CenterAbsolute Immature Granulocyte (auto 2018-11-25 06:12:00* Test Item Value Reference Range Interpretation Comments Absolute Immature Granulocyte (auto (zeenat t code = Absolute Immature Granulocyte (auto) 0.01 0-0.1 [facility] CenterWhite Blood Lcyfj5493-19-42 06:12:00* Test Item Value Reference Range Interpretation Comments White Blood Count (test code = 6690-2) 10.09 4.8-10.8 [facility] CenterRed Blood Gmiav0793-12-68 06:12:00* Test Item Value Reference Range Interpretation Comments Red Blood Count (test code = 789-8) 3.20 4.3-5.7 L [facility] CenterHemoglobin2019-08-29 06:12:00* Test Item Value Reference Range Interpretation Comments Hemoglobin (test code = 27418-1) 9.0 14.0-18.0 L [facility] CenterHematocrit2019-08-29 06:12:00* Test Item Value Reference Range Interpretation Comments Hematocrit (test code = 4544-3) 28.1 38.2-49.6 L [facility] CenterMean Corpuscular Rirzac3322-56-29 06:12:00* Test Item Value Reference Range Interpretation Comments Mean Corpuscular Volume (test code = 787-2) 87.8 81-99 [facility]Mean Corpuscular Gaqjemxocd7511-99-47 06:12:00* Test Item Value Reference Range Interpretation Comments Mean Corpuscular Hemoglobin (test code = 785-6) 28.1 28-32 [facility] CenterMean Corpuscular Hemoglobin Concent 2018-11-25 06:12:00* Test Item Value Reference Range Interpretation Comments Mean Corpuscular Hemoglobin Concent (test code = 786-4) 32.0 31-35 [facility] CenterRed Cell Distribution Kavvy9975-81-62 06:12:00* Test Item Value Reference Range Interpretation Comments Red Cell Distribution Width (test code = 77885-2) 13.7 11.7 -14.4 [facility] CenterPlatelet Zdxcj2212-12-21 06:12:00* Test Item Value Reference Range Interpretation Comments Platelet Count (test code = 777-3) 185 140-360 [facility] CenterNeutrophils (%) (Auto)2018-11-25 06:12:00 * Test Item Value Reference Range Interpretation Comments Neutrophils (%) (Auto) (test code = 36005-8) 60.5 38.7-80.0 [facility] CenterLymphocytes (%) (Auto)2018-11-25 06:12:00 * Test Item Value Reference Range Interpretation Comments Lymphocytes (%) (Auto) (test code = 736-9) 24.7 18.0-39.1 [facility] CenterMonocytes (%) (Auto)2018-11-25 06:12:00* Test Item Value Reference Range Interpretation Comments Monocytes (%) (Auto) (test code = 5905-5) 12.2 4.4-11.3 H [facility] CenterEosinophils (%) (Auto)2018-11-25 06:12:00 * Test Item Value Reference Range Interpretation Comments Eosinophils (%) (Auto) (test code = 713-8) 2.0 0.0-6.0 [facility] CenterBasophils (%) (Auto)2018-11-25 06:12:00* Test Item Value Reference Range Interpretation Comments Basophils (%) (Auto) (test code = 706-2) 0.5 0.0-1.0 [facility] CenterIM GRANULOCYTES %2018-11-25 06:12:00* Test Item Value Reference Range Interpretation Comments IM GRANULOCYTES % (test code = IM GRANULOCYTES %) 0.1 0.0- 1.0 [facility] CenterNeutrophils # (Auto)2018-11-25 06:12:00* Test Item Value Reference Range Interpretation Comments Neutrophils # (Auto) (test code = 751-8) 6.1 2.1-6.9 [facility] CenterLymphocytes # (Auto)2018-11-25 06:12:00* Test Item Value Reference Range Interpretation Comments Lymphocytes # (Auto) (test code = 28602-3) 2.5 1.0-3.2 [facility] CenterMonocytes # (Auto)2018-11-25 06:12:00* Test Item Value Reference Range Interpretation Comments Monocytes # (Auto) (test code = 742-7) 1.2 0.2-0.8 H [facility] CenterEosinophils # (Auto)2018-11-25 06:12:00* Test Item Value Reference Range Interpretation Comments Eosinophils # (Auto) (test code = 711-2) 0.2 0.0-0.4 [facility] CenterBasophils # (Auto)2018-11-25 06:12:00* Test Item Value Reference Range Interpretation Comments Basophils # (Auto) (test code = 704-7) 0.1 0.0-0.1 [facility] CenterAbsolute Immature Granulocyte (auto 2018-11-25 06:12:00* Test Item Value Reference Range Interpretation Comments Absolute Immature Granulocyte (auto (zeenat t code = Absolute Immature Granulocyte (auto) 0.01 0-0.1 [facility] Ytwrx6300-03-32 05:57:00* Test Item Value Reference Range Interpretation Comments Sodium Level (test code = 2951-2) 138 136-145 [facility] CenterPotassium Ahpro2389-80-89 05:57:00* Test Item Value Reference Range Interpretation Comments Potassium Level (test code = 2823-3) 3.3 3.5-5.1 L [facility] CenterChloride Owqol0428-04-00 05:57:00* Test Item Value Reference Range Interpretation Comments Chloride Level (test code = 2075-0) 105 98-107 [facility] CenterCarbon Dioxide Ebpne2941-03-86 05:57:00* Test Item Value Reference Range Interpretation Comments Carbon Dioxide Level (test code = 2028-9) 27 - [facility] CenterAnion Eoj8983-05-35 05:57:00* Test Item Value Reference Range Interpretation Comments Anion Gap (test code = 09597-7) 9.3 8-16 [facility] CenterBlood Urea Xjffmpip6963-83-46 05:57:00* Test Item Value Reference Range Interpretation Comments Blood Urea Nitrogen (test code = 3094-0) 15 7-26 [facility] CenterCreatinine2019-08-29 05:57:00* Test Item Value Reference Range Interpretation Comments Creatinine (test code = 2160-0) 1.17 0.72-1.25 [facility] CenterBUN/Creatinine Ziwdj9164-46-09 05:57:00* Test Item Value Reference Range Interpretation Comments BUN/Creatinine Ratio (test code = 3097-3) 13 6- [facility] CenterEstimat Glomerular Filtration Rate 2018-11-25 05:57:00* Test Item Value Reference Range Interpretation Comments Estimat Glomerular Filtration Rate (test code = 240188967) > 60 >60 Ranges were taken from the National Kidney Disease Education Program and the [facility] literature.Reference ranges:60 or greater: Slynly42-99 ( for 3 consecutive months): Chronic kidney disease 15 or less: Kidney failureCitizens Medical CenterGlucose Tqizm0131-86-89 05:57:00* Test Item Value Reference Range Interpretation Comments Glucose Level (test code = KWV8963) 247 74-118 H [facility] CenterCalcium Cofyn4190-55-29 05:57:00* Test Item Value Reference Range Interpretation Comments Calcium Level (test code = 66802-0) 8.4 8.4-10.2 [facility] Xfdfm7069-30-34 05:57:00* Test Item Value Reference Range Interpretation Comments Sodium Level (test code = 2951-2) 138 136-145 [facility] CenterPotassium Wbkwm4452-20-93 05:57:00* Test Item Value Reference Range Interpretation Comments Potassium Level (test code = 2823-3) 3.3 3.5-5.1 L [facility] CenterChloride Fpljn4409-31-41 05:57:00* Test Item Value Reference Range Interpretation Comments Chloride Level (test code = 2075-0) 105 98-107 [facility] CenterCarbon Dioxide Gkgus0740-36-75 05:57:00* Test Item Value Reference Range Interpretation Comments Carbon Dioxide Level (test code = 2028-9) 27 22-29 [facility] CenterAnion Mjg2481-05-18 05:57:00* Test Item Value Reference Range Interpretation Comments Anion Gap (test code = 64329-9) 9.3 8-16 [facility] CenterBlood Urea Dghtwybk9881-06-88 05:57:00* Test Item Value Reference Range Interpretation Comments Blood Urea Nitrogen (test code = 3094-0) 15 7-26 [facility] CenterCreatinine2019-08-29 05:57:00* Test Item Value Reference Range Interpretation Comments Creatinine (test code = 2160-0) 1.17 0.72-1.25 [facility] CenterBUN/Creatinine Mnplb9594-28-82 05:57:00* Test Item Value Reference Range Interpretation Comments BUN/Creatinine Ratio (test code = 3097-3) 13 6-25 [facility] CenterEstimat Glomerular Filtration Rate 2018-11-25 05:57:00* Test Item Value Reference Range Interpretation Comments Estimat Glomerular Filtration Rate (test code = 075271712) > 60 >60 Ranges were taken from the National Kidney Disease Education Program and the [facility] Kidney Foundation literature.Reference ranges:60 or greater: Iywbdd81-88 ( for 3 consecutive months): Chronic kidney disease 15 or less: Kidney failureCitizens Medical CenterGlucose Iggne3209-70-62 05:57:00* Test Item Value Reference Range Interpretation Comments Glucose Level (test code = ZLL5768) 247 74-118 H [facility] CenterCalcium Dpynu0400-06-62 05:57:00* Test Item Value Reference Range Interpretation Comments Calcium Level (test code = 60531-0) 8.4 8.4-10.2 [facility] Axojd6370-60-28 05:57:00* Test Item Value Reference Range Interpretation Comments Sodium Level (test code = 2951-2) 138 136-145 [facility] CenterPotassium Sszbc9643-05-72 05:57:00* Test Item Value Reference Range Interpretation Comments Potassium Level (test code = 2823-3) 3.3 3.5-5.1 L [facility] CenterChloride Jahuz7226-58-09 05:57:00* Test Item Value Reference Range Interpretation Comments Chloride Level (test code = 2075-0) 105 98-107 [facility] CenterCarbon Dioxide Csoqt3903-78-19 05:57:00* Test Item Value Reference Range Interpretation Comments Carbon Dioxide Level (test code = 2028-9) 27 22-29 [facility] CenterAnion Tsf7781-12-96 05:57:00* Test Item Value Reference Range Interpretation Comments Anion Gap (test code = 94353-1) 9.3 8-16 [facility] CenterBlood Urea Edwixgay7226-85-90 05:57:00* Test Item Value Reference Range Interpretation Comments Blood Urea Nitrogen (test code = 3094-0) 15 - [facility] CenterCreatinine2019-08-29 05:57:00* Test Item Value Reference Range Interpretation Comments Creatinine (test code = 2160-0) 1.17 0.72-1.25 [facility] CenterBUN/Creatinine Rsugo8627-55-38 05:57:00* Test Item Value Reference Range Interpretation Comments BUN/Creatinine Ratio (test code = 3097-3) 13 09-21 [facility] CenterEstimat Glomerular Filtration Rate 2018-11-25 05:57:00* Test Item Value Reference Range Interpretation Comments Estimat Glomerular Filtration Rate (test code = 488670967) > 60 >60 Ranges were taken from the National Kidney Disease Education Program and the [facility] Kidney Foundation literature.Reference ranges:60 or greater: Vscbhf15-81 ( for 3 consecutive months): Chronic kidney disease 15 or less: Kidney failureCitizens Medical CenterGlucose Qzeea9315-62-91 05:57:00* Test Item Value Reference Range Interpretation Comments Glucose Level (test code = PBB3065) 247 74-118 H [facility] CenterCalcium Ettim4471-51-25 05:57:00* Test Item Value Reference Range Interpretation Comments Calcium Level (test code = 85089-3) 8.4 8.4-10.2 [facility] Qhnuk2275-86-33 05:57:00* Test Item Value Reference Range Interpretation Comments Sodium Level (test code = 2951-2) 138 136-145 [facility] CenterPotassium Zqzme1112-61-40 05:57:00* Test Item Value Reference Range Interpretation Comments Potassium Level (test code = 2823-3) 3.3 3.5-5.1 L [facility] CenterChloride Oawfy6887-74-19 05:57:00* Test Item Value Reference Range Interpretation Comments Chloride Level (test code = 2075-0) 105 98-107 [facility] CenterCarbon Dioxide Qfnds0815-65-63 05:57:00* Test Item Value Reference Range Interpretation Comments Carbon Dioxide Level (test code = 2028-9) 27 [facility] CenterAnion Dte5300-66-71 05:57:00* Test Item Value Reference Range Interpretation Comments Anion Gap (test code = 34919-8) 9.3 8-16 [facility] CenterBlood Urea Edkwysmd5832-43-11 05:57:00* Test Item Value Reference Range Interpretation Comments Blood Urea Nitrogen (test code = 3094-0) 15 7-26 [facility] CenterCreatinine2019-08-29 05:57:00* Test Item Value Reference Range Interpretation Comments Creatinine (test code = 2160-0) 1.17 0.72-1.25 [facility] CenterBUN/Creatinine Ewlbk1139-70-17 05:57:00* Test Item Value Reference Range Interpretation Comments BUN/Creatinine Ratio (test code = 3097-3) 13 09-21 [facility] CenterEstimat Glomerular Filtration Rate 2018-11-25 05:57:00* Test Item Value Reference Range Interpretation Comments Estimat Glomerular Filtration Rate (test code = 149693676) > 60 >60 Ranges were taken from the National Kidney Disease Education Program and the [facility] Kidney Foundation literature.Reference ranges:60 or greater: Getvoe14-48 ( for 3 consecutive months): Chronic kidney disease 15 or less: Kidney failureCitizens Medical CenterGlucose Imptm5142-92-20 05:57:00* Test Item Value Reference Range Interpretation Comments Glucose Level (test code = QCE6500) 247 74-118 H [facility] CenterCalcium Zrghi5653-99-65 05:57:00* Test Item Value Reference Range Interpretation Comments Calcium Level (test code = 79225-1) 8.4 8.4-10.2 [facility] CenterBlood Bqhhaci5333-26-87 20:52:00* Test Item Value Reference Range Interpretation Comments Blood Culture (test code = 02984918) NO GROWTH AFTER 48 HOURS [facility] CenterUrine XDV3773-90-11 10:48:00* Test Item Value Reference Range Interpretation Comments Urine WBC (test code = 5821-4) 6-10 0-5 H [facility] CenterUrine XMN8746-30-76 10:48:00* Test Item Value Reference Range Interpretation Comments Urine RBC (test code = 66234-8) 0-5 0-5 [facility] CenterUrine Auicdgcq9378-87-34 10:48:00* Test Item Value Reference Range Interpretation Comments Urine Bacteria (test code = 95639-9) MODERATE NONE H [facility] CenterUrine Epithelial Kkvnm0849-94-13 10:48:00 * Test Item Value Reference Range Interpretation Comments Urine Epithelial Cells (test code = 89477-5) FEW NONE [facility] CenterUrine XBY2708-67-52 10:48:00* Test Item Value Reference Range Interpretation Comments Urine WBC (test code = 5821-4) 6-10 0-5 H [facility] CenterUrine ODN3780-26-90 10:48:00* Test Item Value Reference Range Interpretation Comments Urine RBC (test code = 51415-5) 0-5 0-5 [facility] CenterUrine Bodgtyvq1285-04-56 10:48:00* Test Item Value Reference Range Interpretation Comments Urine Bacteria (test code = 53891-5) MODERATE NONE H [facility] CenterUrine Epithelial Yntmc3976-21-68 10:48:00 * Test Item Value Reference Range Interpretation Comments Urine Epithelial Cells (test code = 06229-0) FEW NONE [facility] CenterU[facility] AKE1214-91-74 10:48:00* Test Item Value Reference Range Interpretation Comments Urine WBC (test code = 5821-4) 6-10 0-5 H [facility] CenterUrine WWM0625-83-47 10:48:00* Test Item Value Reference Range Interpretation Comments Urine RBC (test code = 07804-0) 0-5 0-5 [facility] CenterUrine Quuzcccv5163-34-67 10:48:00* Test Item Value Reference Range Interpretation Comments Urine Bacteria (test code = 63909-8) MODERATE NONE H [facility] CenterUrine Epithelial Xzwyi7851-49-94 10:48:00 * Test Item Value Reference Range Interpretation Comments Urine Epithelial Cells (test code = 34468-8) FEW NONE [facility] CenterU[facility] NZF6510-17-24 10:48:00* Test Item Value Reference Range Interpretation Comments Urine WBC (test code = 5821-4) 6-10 0-5 H [facility] CenterUrine KJW2307-07-38 10:48:00* Test Item Value Reference Range Interpretation Comments Urine RBC (test code = 54968-3) 0-5 0-5 [facility] CenterU[facility] Hknggbng6149-05-70 10:48:00* Test Item Value Reference Range Interpretation Comments Urine Bacteria (test code = 69978-0) MODERATE NONE H [facility] CenterUrine Epithelial Uhsmu4034-80-91 10:48:00 * Test Item Value Reference Range Interpretation Comments Urine Epithelial Cells (test code = 46639-8) FEW NONE [facility] CenterU[facility] ECB9707-59-09 10:48:00* Test Item Value Reference Range Interpretation Comments Urine WBC (test code = 5821-4) 6-10 0-5 H [facility] CenterU[facility] THK0940-15-39 10:48:00* Test Item Value Reference Range Interpretation Comments Urine RBC (test code = 13311-0) 0-5 0-5 [facility] CenterU[facility] Oibgfpcu2716-75-97 10:48:00* Test Item Value Reference Range Interpretation Comments Urine Bacteria (test code = 70811-8) MODERATE NONE H [facility] CenterUrine Epithelial Gjtfl5751-11-61 10:48:00 * Test Item Value Reference Range Interpretation Comments Urine Epithelial Cells (test code = 92608-9) FEW NONE [facility] CenterU[facility] Ixjwr7803-05-46 10:24:00* Test Item Value Reference Range Interpretation Comments Urine Color (test code = 5778-6) YELLOW YELLOW [facility] CenterU[facility] Slixppf3790-49-39 10:24:00* Test Item Value Reference Range Interpretation Comments Urine Clarity (test code = 60137-1) CLEAR CLEAR [facility] CenterUrine Specific Akadnlx7677-49-07 10:24:00 * Test Item Value Reference Range Interpretation Comments Urine Specific [place] (test code = 5811-5) 1.025 1.010-1.02 5 [facility] CenterU[facility] cP5271-14-28 10:24:00* Test Item Value Reference Range Interpretation Comments Urine pH (test code = 85010-7) 6 5-7 [facility] Leukocyte Cyjtqhwv5447-37-27 10:24:00* Test Item Value Reference Range Interpretation Comments Urine Leukocyte Esterase (test code = 49492-4) NEGATIVE NEGATIV E [facility] Jrwhvvg4578-63-34 10:24:00* Test Item Value Reference Range Interpretation Comments Urine Nitrite (test code = 24123-5) NEGATIVE NEGATIVE [facility] Iroddnm8824-11-23 10:24:00* Test Item Value Reference Range Interpretation Comments Urine Protein (test code = 06348-5) NEGATIVE NEGATIVE [facility] Glucose (UA)2018-11-24 10:24:00* Test Item Value Reference Range Interpretation Comments Urine Glucose (UA) (test code = 38753-7) NEGATIVE NEGATIVE [facility] Tjhjood6676-07-81 10:24:00* Test Item Value Reference Range Interpretation Comments Urine Ketones (test code = 70868-1) 1+ NEGATIVE H [facility] Xridgyklnyem9906-87-12 10:24:00* Test Item Value Reference Range Interpretation Comments Urine Urobilinogen (test code = 43394-9) 0.2 0.2-1 [facility] Vvvntcpxe4816-72-98 10:24:00* Test Item Value Reference Range Interpretation Comments Urine Bilirubin (test code = 1977-8) NEGATIVE NEGATIVE [facility] Rbgnu5487-20-98 10:24:00* Test Item Value Reference Range Interpretation Comments Urine Blood (test code = 73663-3) [facility]IVE [facility] Roany6275-95-46 10:24:00* Test Item Value Reference Range Interpretation Comments Urine Color (test code = 5778-6) YELLOW YELLOW [facility] Mkuhfxf4965-92-55 10:24:00* Test Item Value Reference Range Interpretation Comments Urine Clarity (test code = 18254-3) CLEAR CLEAR [facility] Rlherib9029-93-26 10:24:00 * Test Item Value Reference Range Interpretation Comments Urine Specific [place] (test code = 5811-5) 1.025 1.010-1.02 5 [facility] yQ9842-05-94 10:24:00* Test Item Value Reference Range Interpretation Comments Urine pH (test code = 33412-6) 6 5-7 [facility]ocyte Xhkkdnjv6732-42-67 10:24:00* Test Item Value Reference Range Interpretation Comments Urine Leukocyte Esterase (test code = 48696-0) NEGATIVE NEGATIV E [facility] Xqcdbra1081-39-94 10:24:00* Test Item Value Reference Range Interpretation Comments Urine Nitrite (test code = 13889-9) NEGATIVE [facility]GATIVE [facility] Qnwukbb7620-69-35 10:24:00* Test Item Value Reference Range Interpretation Comments Urine Protein (test code = 47264-5) NEGATIVE NEGATIVE [facility] Glucose (UA)2018-11-24 10:24:00* Test Item Value Reference Range Interpretation Comments Urine Glucose (UA) (test code = 65463-2) NEGATIVE NEGATIVE [facility] Qcczdfu3431-90-39 10:24:00* Test Item Value Reference Range Interpretation Comments Urine Ketones (test code = 98869-3) 1+ NEGATIVE H [facility] Tdekgxfmhtyh5625-77-80 10:24:00* Test Item Value Reference Range Interpretation Comments Urine Urobilinogen (test code = 53948-8) 0.2 0.2-1 [facility] Btdhwgybj4138-55-95 10:24:00* Test Item Value Reference Range Interpretation Comments Urine Bilirubin (test code = 1977-8) NEGATIVE NEGATIVE [facility] Afraw1777-47-82 10:24:00* Test Item Value Reference Range Interpretation Comments Urine Blood (test code = 94601-4) NEGATIVE NEGATIVE [facility] Egamw8076-00-10 10:24:00* Test Item Value Reference Range Interpretation Comments Urine Color (test code = 5778-6) YELLOW YELLOW [facility] Bobyxly2160-54-08 10:24:00* Test Item Value Reference Range Interpretation Comments Urine Clarity (test code = 30094-9) CLEAR CLEAR [facility] Specific Ohwzbbz5018-74-33 10:24:00 * Test Item Value Reference Range Interpretation Comments Urine Specific [place] (test code = 5811-5) 1.025 1.010-1.02 5 [facility] kC5917-78-76 10:24:00* Test Item Value Reference Range Interpretation Comments Urine pH (test code = 88395-8) 6 5-7 [facility] Leukocyte Mkzqxoxq0456-83-58 10:24:00* Test Item Value Reference Range Interpretation Comments Urine Leukocyte Esterase (test code = 91295-2) NEGATIVE NEGATIV E [facility] Abrzrrx0362-97-71 10:24:00* Test Item Value Reference Range Interpretation Comments Urine Nitrite (test code = 57544-0) NEGATIVE NEGATIVE [facility] Uhdxkdr7817-56-40 10:24:00* Test Item Value Reference Range Interpretation Comments Urine Protein (test code = 20992-2) NEGATIVE NEGATIVE [facility] Glucose (UA)2018-11-24 10:24:00* Test Item Value Reference Range Interpretation Comments Urine Glucose (UA) (test code = 48781-2) NEGATIVE [facility]GATIVE [facility] Jsmlham6783-10-61 10:24:00* Test Item Value Reference Range Interpretation Comments Urine Ketones (test code = 61479-0) 1+ NEGATIVE H [facility] Crakkdvfwxbo9054-32-60 10:24:00* Test Item Value Reference Range Interpretation Comments Urine Urobilinogen (test code = 55280-1) 0.2 0.2-1 [facility] Zfxobdbyc0778-31-80 10:24:00* Test Item Value Reference Range Interpretation Comments Urine Bilirubin (test code = 1977-8) NEGATIVE NEGATIVE [facility] Kxrls1135-62-27 10:24:00* Test Item Value Reference Range Interpretation Comments Urine Blood (test code = 84980-6) NEGATIVE NEGATIVE [facility] Lmyvr5713-44-58 10:24:00* Test Item Value Reference Range Interpretation Comments Urine Color (test code = 5778-6) YELLOW YELLOW [facility] Ohtrnfh2801-26-37 10:24:00* Test Item Value Reference Range Interpretation Comments Urine Clarity (test code = 60706-7) CLEAR CLEAR [facility] Mhfijmt0167-51-71 10:24:00 * Test Item Value Reference Range Interpretation Comments Urine Specific [place] (test code = 5811-5) 1.025 1.010-1.02 5 [facility] nJ4681-71-29 10:24:00* Test Item Value Reference Range Interpretation Comments Urine pH (test code = 79279-8) 6 5-7 [facility] Leukocyte Erlycrec4120-58-50 10:24:00* Test Item Value Reference Range Interpretation Comments Urine Leukocyte Esterase (test code = 12576-3) NEGATIVE NEGATIV E [facility] Relgesr2509-71-58 10:24:00* Test Item Value Reference Range Interpretation Comments Urine Nitrite (test code = 56482-0) NEGATIVE NEGATIVE [facility] Xzqioqw5211-94-94 10:24:00* Test Item Value Reference Range Interpretation Comments Urine Protein (test code = 43495-8) NEGATIVE NEGATIVE [facility] Glucose (UA)2018-11-24 10:24:00* Test Item Value Reference Range Interpretation Comments Urine Glucose (UA) (test code = 63099-7) NEGATIVE NEGATIVE [facility] Xbcunep9105-93-41 10:24:00* Test Item Value Reference Range Interpretation Comments Urine Ketones (test code = 90234-1) 1+ NEGATIVE H [facility] Qeozeccvlojh7857-58-82 10:24:00* Test Item Value Reference Range Interpretation Comments Urine Urobilinogen (test code = 12789-7) 0.2 0.2-1 [facility] Ukkizipty9076-40-65 10:24:00* Test Item Value Reference Range Interpretation Comments Urine Bilirubin (test code = 1977-8) NEGATIVE NEGATIVE [facility] Wchnu7054-86-72 10:24:00* Test Item Value Reference Range Interpretation Comments Urine Blood (test code = 95226-3) NEGATIVE NEGATIVE [facility] Ggzai4615-85-17 10:24:00* Test Item Value Reference Range Interpretation Comments Urine Color (test code = 5778-6) YELLOW YELLOW [facility] Gfmobxu3673-99-95 10:24:00* Test Item Value Reference Range Interpretation Comments Urine Clarity (test code = 53597-3) CLEAR CLEAR [facility] Ndqlwlw5623-08-84 10:24:00 * Test Item Value Reference Range Interpretation Comments Urine Specific [place] (test code = 5811-5) 1.025 1.010-1.02 5 [facility] pF2805-26-03 10:24:00* Test Item Value Reference Range Interpretation Comments Urine pH (test code = 65043-9) 6 5-7 [facility] Leukocyte Wqermcif5195-52-18 10:24:00* Test Item Value Reference Range Interpretation Comments Urine Leukocyte Esterase (test code = 82319-2) NEGATIVE NEGATIV E [facility] Vubgxzw7390-67-60 10:24:00* Test Item Value Reference Range Interpretation Comments Urine Nitrite (test code = 52781-3) NEGATIVE NEGATIVE [facility] Wlswyah8455-14-79 10:24:00* Test Item Value Reference Range Interpretation Comments Urine Protein (test code = 88529-7) NEGATIVE NEGATIVE [facility] Glucose (UA)2018-11-24 10:24:00* Test Item Value Reference Range Interpretation Comments Urine Glucose (UA) (test code = 18799-2) NEGATIVE NEGATIVE [facility] Hbjhcrx2287-50-27 10:24:00* Test Item Value Reference Range Interpretation Comments Urine Ketones (test code = 01690-8) 1+ NEGATIVE H [facility] Twxdgauwemup4232-85-32 10:24:00* Test Item Value Reference Range Interpretation Comments Urine Urobilinogen (test code = 93612-2) 0.2 0.2-1 [facility] Hjqxgxpjh0468-04-65 10:24:00* Test Item Value Reference Range Interpretation Comments Urine Bilirubin (test code = 1977-8) NEGATIVE NEGATIVE [facility] Gkjwq3197-68-21 10:24:00* Test Item Value Reference Range Interpretation Comments Urine Blood (test code = 37694-5) NEGATIVE NEGATIVE [facility] color biqaodpvehfjr1468-58-15 08:40:00* Test Item Value Reference Range Interpretation Comments Urine Color (test code = 5778-6) YELLOW YELLOW [facility] blflhmt4006-77-41 08:40:00* Test Item Value Reference Range Interpretation Comments Urine Clarity (test code = 95118-7) [facility] by Test strip 2018-11-24 08:40:00* Test Item Value Reference Range Interpretation Comments Urine Specific [place] (test code = 5811-5) 1.025 1.010-1.02 5 [facility] pH measurement by automated test uynnp5613-00-00 08:40:00* Test Item Value Reference Range Interpretation Comments Urine pH (test code = 78610-2) 6 5-7 [facility] leukocyte esterase detection by automated test czigb8883-25-11 08:40:00* Test Item Value Reference Range Interpretation Comments Urine Leukocyte Esterase (test code = 19619-7) NEGATIVE NEGATIV E [facility] nitrite detection by automated test sxwly6534-13-34 08:40:00* Test Item Value Reference Range Interpretation Comments Urine Nitrite (test code = 56852-1) NEGATIVE NEGATIVE [facility] protein detection by automated test usyhz2181-48-73 08:40:00* Test Item Value Reference Range Interpretation Comments Urine Protein (test code = 55211-9) NEGATIVE NEGATIVE [facility] glucose detection by automated test kuvry3209-58-11 08:40:00* Test Item Value Reference Range Interpretation Comments Urine Glucose (UA) (test code = 34474-9) NEGATIVE NEGATIVE [facility] ketones detection by automated test mouvp4129-44-76 08:40:00* Test Item Value Reference Range Interpretation Comments Urine Ketones (test code = 65192-6) 1+ NEGATIVE [facility] urobilinogen measurement by test strip (mass/volume)2018-11-24 08:40:00* Test Item Value Reference Range Interpretation Comments Urine Urobilinogen (test code = 07026-5) 0.2 0.2-1 [facility] total bilirubin hfdljhjty3799-77-77 08:40:00* Test Item Value Reference Range Interpretation Comments Urine Bilirubin (test code = 1977-8) NEGATIVE NEGATIVE [facility] erythrocytes ohghohhxk5355-50-11 08:40:00* Test Item Value Reference Range Interpretation Comments Urine Blood (test code = 67359-6) NEGATIVE NEGATIVE [facility] Center[facility] urine sediment leukocyte count by microscopy (number/high power field)2018-11-24 08:40:00* Test Item Value Reference Range Interpretation Comments Urine WBC (test code = 5821-4) 6-10 0-5 [facility] Center[facility]rythrocytes detection in urine sediment by light cgssrcpuhc1403-37-97 08:40:00* Test Item Value Reference Range Interpretation Comments Urine RBC (test code = 15689-8) 0-5 0-5 [facility] CenterBacteria detection in urine sediment by light cyojtxzmsj5278-81-76 08:40:00* Test Item Value Reference Range Interpretation Comments Urine Bacteria (test code = 14149-5) MODERATE NONE [facility] CenterEpithelial cells detection in urine sediment by light okpkxlmpch2294-95-51 08:40:00* Test Item Value Reference Range Interpretation Comments Urine Epithelial Cells (test code = 00494-5) FEW NONE [facility]2019-08-28 03:50:00* Test Item Value Reference Range Interpretation Comments Lipase (test code = 3040-3) < 4 8-78 [facility] - TQLF8964-06-87 18:41:00 [facility] [address] [address] Patient Name: BREE LINDSAY MR #: [id number] : 1975 Age/Sex: 42/M Req #: [id number] Adm Physician: ISACC JAVED MD Ordered by: NEIL PEREZ MD Report #: [id number] Location: [facility] Room/Bed: [place] [address] Procedure: [id number] HOPD/CXR 1 VEW - HOPD Exam Date: 11/22/18 Exam Time : 1755 REPORT STATUS: Signed EXA MINATION: CXR 1 VIEW - HOPD COMPARISON: None INDICATION: Hemateme sis [id number] DISCUSSION: Frontal view of the chest obtained [...] on 11/22/181843 COPY TO: NEIL PEREZ MD DAMVUF6650-92-18 11:31:00* Test Item Value Reference Range Interpretation Comments GLUBED (test code = GLUBED) 163 mg/dL 74-106 H Performed by 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 chucking lathe operator at [facility] FMGKUN5004-59-12 05:52:00* Test Item Value Reference Range Interpretation Comments GLUBED (test code = GLUBED) 339 mg/dL 74-106 H Performed by certified chucking lathe operator at [facility] BASIC METABOLIC JQDFQ0613-98-63 05:04:00* Test Item Value Reference Range Interpretation [...] code = CA) 8.6 mg/dL 8.5-10.1 N DGQJKPQRLF8795-27-27 05:04:00* Test Item Value Reference Range Interpretation Comments PHOSPHORUS (test code = PHOS) 2.5 mg/dL 2.5-4.9 N ZKQRTHMCV5084-02-15 05:04:00* Test Item Value Reference Range Interpretation Comments MAGNESIUM (test code = MAG) 1.7 mg/dL 1.8-2.4 L CBC W/AUTO NQPW5229-03-30 04:58:00* Test Item Value Reference Range Interpretation [...] (test code = MDIFF) NO BASIC METABOLIC EZKFG9655-47-17 04:54:00* Test Item Value Reference Range Interpretation [...] CALCIUM (test code = CA) mg/dL 8.5-10.1 UYXUWHNDPY3872-75-40 04:54:00* Test Item Value Reference Range Interpretation Comments PHOSPHORUS (test code = PHOS) mg/dL 2.5-4.9 PJFLVVIEY0552-59-55 04:54:00* Test Item Value Reference Range Interpretation Comments MAGNESIUM (test code = MAG) mg/dL 1.8-2.4 BPHFTV6211-45-93 21:18:00* Test Item Value Reference Range Interpretation Comments GLUBED (test code = GLUBED) 363 mg/dL 74-106 H Performed by certified chucking lathe operator at [facility] QSAU4H8191-81-85 18:20:00* Test Item Value Reference Range Interpretation Comments GLYCOSYLATED HEMOGLOBIN (HA1C) (test code = GLYHGB) 9.0 % HbA1 4. 8-6.0 H ESTIMATED AVERAGE GLUCOSE (test code = EAG) 212 MG/DL BPEYUW8793-85-27 17:42:00* Test Item Value Reference Range Interpretation Comments GLUBED (test code = GLUBED) 216 mg/dL 74-106 H Performed by certified chucking lathe operator at [facility] ZHZDTO0434-75-95 13:09:00* Test Item Value Reference Range Interpretation Comments GLUBED (test code = GLUBED) 209 mg/dL 74-106 H Performed by certified chucking lathe operator at [facility] LACTIC FQOH4939-07-88 08:53:00* Test Item Value Reference Range Interpretation [...] taking into account the patients history. PROTHROMBIN UGGL3394-61-83 07:23:00* Test Item Value Reference Range Interpretation [...] (2.5-3.5) IS PATIENT ON ANTICOAGULANTS? NTHROMBOPLASTIN TIME YUVYDXA3793-91-12 07:23:00* Test Item Value Reference Range Interpretation Comments THROMBOPLASTIN TIME PARTIAL (test code = PTT) 26.2 seconds 25.0-36. 5 N IS PATIENT ON ANTICOAGULANTS? NBASIC METABOLIC TUEVR7872-88-86 06:41:00* Test Item Value Reference Range Interpretation [...] CA) 9.7 mg/dL 8.5-10.1 N HEPATIC FUNCTION PWMHH4679-73-07 06:41:00* Test Item Value Reference Range Interpretation [...] reference range due to change in reagent. QURLOQ0492-00-40 06:41:00* Test Item Value Reference Range Interpretation Comments LIPASE (test code = LIP) 16 U/L 73.0-393.0 L ALOSODRL-Y0049-06-03 06:41:00* Test Item Value Reference Range Interpretation Comments TROPONIN-I (test code = TROPI) <0.015 ng/mL 0-0.045 N BASIC METABOLIC MVQSG2692-53-13 06:27:00* Test Item Value Reference Range Interpretation [...] code = CA) mg/dL 8.5-10.1 HEPATIC FUNCTION DSYFJ4488-54-87 06:27:00* Test Item Value Reference Range Interpretation [...] TOTAL (test code = ALKP) IUnit/L 45-117 BNVEEP4673-58-48 06:27:00* Test Item Value Reference Range Interpretation Comments LIPASE (test code = LIP) U/L 73.0-393.0 FFAKTDWV-M7625-43-03 06:27:00* Test Item Value Reference Range Interpretation Comments TROPONIN-I (test code = TROPI) ng/mL 0-0.045 POC LACTIC LQZS8742-49-64 06:23:00* Test Item Value Reference Range Interpretation Comments POC LACTIC ACID (test code = POCLAC) 1.46 MMOL/L 0.4-2.2 N CBC W/O ZXRG0539-49-61 06:22:00* Test Item Value Reference Range Interpretation [...] = MPV) 11.6 fL 6.7-11.0 H GASTRIC XHQUGXDB4620-25-34 00:53:00 [facility] [address] [place], [place] [id number] Patient Name: BREE LINDSAY MR #: [id number] : 1975 [facility] 42[id number] #: [id number] [facility] Physician: Ordered by: TAVIA GARCIA MD Report #: [id number] Location: [place] Room/Bed: Procedure: N M/GASTRIC EMPTYING Exam Date: Exam Time: REPORT STATUS: Signed Solid-phase gastric emptying study Reason for examination: GERD with esophagitis; gastritis The protocol used for this study is based on the Consensus Recommendations fo r Gastric Scintigraphy by the [place] [employer] and the [...] on 09/21/1856 COPY TO: TAVIA GARCIA MD Ipmjfa5961-32-43 15:34:00* Test Item Value Reference Range Interpretation Comments Lipase (test code = 3040-3) < 4 8-78 L [facility] 15:34:00* Test Item Value Reference Range Interpretation Comments Lipase (test code = 3040-3) < 4 8-78 L [facility]2019-[facility]-11 11:39:00* Test Item Value Reference Range Interpretation Comments GLUBED (test code = GLUBED) 102 mg/dL 74-106 N Performed by certified chucking lathe operator at [facility] BASIC METABOLIC VWSVM8837-73-90 11:27:00* Test Item Value Reference Range Interpretation [...] CA) 8.6 mg/dL 8.5-10.1 N CBC W/AUTO BHTF2475-08-33 11:02:00* Test Item Value Reference Range Interpretation [...] DIFF REQUIRED (test code = MDIFF) NO [id number] 07:41:00* Test Item Value Reference Range Interpretation Comments GLUBED (test code = GLUBED) 111 mg/dL 74-106 H Performed by certified chucking lathe operator at [facility] OXMOMJ9422-56-90 21:20:00* Test Item Value Reference Range Interpretation Comments GLUBED (test code = GLUBED) 201 mg/dL 74-106 H Performed by certified chucking lathe operator at [facility] SOYGHO7729-64-21 16:36:00* Test Item Value Reference Range Interpretation Comments GLUBED (test code = GLUBED) 214 mg/dL 74-106 H Performed by certified chucking lathe operator at [facility] CLJPMR3969-99-93 12:00:00* Test Item Value Reference Range Interpretation Comments GLUBED (test code = GLUBED) 266 mg/dL 74-106 H Performed by certified chucking lathe operator at [facility] MFAEQJ7167-27-93 07:31:00* Test Item Value Reference Range Interpretation Comments GLUBED (test code = GLUBED) 252 mg/dL 74-106 H Performed by certified chucking lathe operator at [facility] SDZIBN4191-10-16 21:20:00* Test Item Value Reference Range Interpretation Comments GLUBED (test code = GLUBED) 109 mg/dL 74-106 H Performed by certified chucking lathe operator at [facility] TGBSRS1181-71-11 16:47:00* Test Item Value Reference Range Interpretation Comments GLUBED (test code = GLUBED) 328 mg/dL 74-106 H Performed by certified chucking lathe operator at [facility] SGUTIL8580-94-47 11:32:00* Test Item Value Reference Range Interpretation Comments GLUBED (test code = GLUBED) 145 mg/dL 74-106 H Performed by certified chucking lathe operator at [facility] DEFVOD6720-34-53 07:54:00* Test Item Value Reference Range Interpretation Comments GLUBED (test code = GLUBED) 347 mg/dL 74-106 H Performed by certified chucking lathe operator at [facility] CBC W/AUTO [id number] 07:28:00* Test Item Value Reference Range Interpretation [...] (test code = MDIFF) NO BASIC METABOLIC [id number] 07:10:00* Test Item Value Reference Range Interpretation [...] CA) 8.8 mg/dL 8.5-10.1 N BASIC METABOLIC CGAXJ2249-26-39 06:59:00* Test Item Value Reference Range Interpretation [...] CALCIUM (test code = CA) mg/dL 8.5-10.1 AOYNYE6659-95-46 22:44:00* Test Item Value Reference Range Interpretation Comments GLUBED (test code = GLUBED) 364 mg/dL 74-106 H Performed by certified chucking lathe operator at [facility] BASIC METABOLIC MKSLQ3431-98-69 17:43:00* Test Item Value Reference Range Interpretation [...] CA) 9.9 mg/dL 8.5-10.1 N HEPATIC FUNCTION [id number] 17:43:00* Test Item Value Reference Range Interpretation [...] reference range due to change in reagent. [id number] 17:43:00* Test Item Value Reference Range Interpretation Comments LIPASE (test code = LIP) 18 U/L 73.0-393.0 L BASIC METABOLIC [id number] 17:22:00* Test Item Value Reference Range Interpretation [...] code = CA) mg/dL 8.5-10.1 HEPATIC FUNCTION [id number] 17:22:00* Test Item Value Reference Range Interpretation [...] TOTAL (test code = ALKP) IUnit/L 45-117 [id number] 17:22:00* Test Item Value Reference Range Interpretation Comments LIPASE (test code = LIP) U/L 73.0-393.0 URINALYSIS AAZCIXOW6838-17-40 17:00:00* Test Item Value Reference Range Interpretation [...] FEW #/LPF FEW Urine Source? Clean CatchURINALYSIS [id number] 16:55:00* Test Item Value Reference Range Interpretation [...] HPF NONE Urine Source? Clean CatchCBC W/O [id number] 16:40:00* Test Item Value Reference Range Interpretation [...] MPV) 10.7 fL 6.7-11.0 N CBC W/O [id number] 16:37:00* Test Item Value Reference Range Interpretation [...] (test code = MPV) fL 6.7-11.0 Bedside Wgnmezj7819-32-29 08:08:00* Test Item Value Reference Range Interpretation Comments Bedside Glucose (test code = 93697-7) 217 70-120 H Meter ID: [id number] [facility] Glucose 2018-07-07 08:08:00* Test Item Value Reference Range Interpretation Comments Bedside Glucose (test code = 97025-1) 217 70-120 [id number] 2018-07-07 08:08:00* Test Item Value Reference Range Interpretation Comments Bedside Glucose (test code = 83725-6) 217 70-120 H Meter ID: [id number] [place] 2018-07-07 06:31:00* Test Item Value Reference Range Interpretation Comments Magnesium Level (test code = 96544-0) 1.4 1.3-2.1 [facility]2019-04-10 06:31:00* Test Item Value Reference Range Interpretation Comments Magnesium Level (test code = 25295-5) 1.4 1.3-2.1 [facility]2019-04-10 06:31:00* Test Item Value Reference Range Interpretation Comments Magnesium Level (test code = 89795-9) 1.4 1.3-2.1 [facility]2019-04-10 06:31:00* Test Item Value Reference Range Interpretation Comments Magnesium Level (test code = 04331-4) 1.4 1.3-2.1 [facility]2019-04-10 06:27:00* Test Item Value Reference Range Interpretation Comments Sodium Level (test code = 2951-2) 137 136-145 [facility] Mskdt9860-32-00 06:27:00* Test Item Value Reference Range Interpretation Comments Potassium Level (test code = 2823-3) 2.7 3.5-5.1 LL Results repeated and called to [place] at 0624 on 07/07/18 by Lisa henry Read back and verified.[facility] Level 2018-07-07 06:27:00* Test Item Value Reference Range Interpretation Comments Chloride Level (test code = 2075-0) 96 98-107 L [facility] CenterCarbon Dioxide Isykg8958-51-12 06:27:00* Test Item Value Reference Range Interpretation Comments Carbon Dioxide Level (test code = 2028-9) 32 22-29 H [facility] CenterAnion Nhz7150-23-08 06:27:00* Test Item Value Reference Range Interpretation Comments Anion Gap (test code = 92747-1) 11.7 8-16 [facility] CenterBlood Urea Jstvuaws8545-76-26 06:27:00* Test Item Value Reference Range Interpretation Comments Blood Urea Nitrogen (test code = 3094-0) 6 7-26 L [facility] CenterCreatinine2019-04-10 06:27:00* Test Item Value Reference Range Interpretation Comments Creatinine (test code = 2160-0) 0.85 0.72-1.25 [facility] CenterBUN/Creatinine Qjfhb1707-52-16 06:27:00* Test Item Value Reference Range Interpretation Comments BUN/Creatinine Ratio (test code = 3097-3) 7 6-25 [facility] CenterEstimat Glomerular Filtration Rate 2018-07-07 06:27:00* Test Item Value Reference Range Interpretation Comments Estimat Glomerular Filtration Rate (test code = 796354042) > 60 >60 Ranges were taken from the National Kidney Disease Education Program and the [facility] literature.Reference ranges:60 or greater: Aticon88-94 ( for 3 consecutive months): Chronic kidney disease 15 or less: Kidney failureCitizens Medical CenterGlucose Rvzrg5574-66-44 06:27:00* Test Item Value Reference Range Interpretation Comments Glucose Level (test code = APG4441) 136 74-118 H [facility] CenterCalcium Yolxd6108-82-78 06:27:00* Test Item Value Reference Range Interpretation Comments Calcium Level (test code = 10738-9) 8.4 8.4-10.2 [facility] CenterTotal Inlxcnmnf2128-95-82 06:27:00* Test Item Value Reference Range Interpretation Comments Total Bilirubin (test code = 1975-2) 0.5 0.2-1.2 [facility] CenterAspartate Amino Transf (AST/SGOT) 2018-07-07 06:27:00* Test Item Value Reference Range Interpretation Comments Aspartate Amino Transf (AST/SGOT) (test code = Aspartate Amino Transf (AST/SGOT)) 12 5-34 [facility] CenterAlanine Aminotransferase (ALT/SGPT) 2018-07-07 06:27:00* Test Item Value Reference Range Interpretation Comments Alanine Aminotransferase (ALT/SGPT) (test code = 1742-6) < 6 0-55 [facility] CenterTotal Cbizyby0750-02-33 06:27:00* Test Item Value Reference Range Interpretation Comments Total Protein (test code = 2885-2) 5.8 6.5-8.1 L [facility] CenterAlbumin2019-04-10 06:27:00* Test Item Value Reference Range Interpretation Comments Albumin (test code = 1751-7) 3.1 3.5-5.0 L [facility] CenterGlobulin2019-04-10 06:27:00* Test Item Value Reference Range Interpretation Comments Globulin (test code = 10767-4) 2.7 2.3-3.5 [facility] CenterAlbumin/Globulin Sejji6272-57-74 06:27:00 * Test Item Value Reference Range Interpretation Comments Albumin/Globulin Ratio (test code = 1759-0) 1.1 0.8-2.0 [facility] CenterAlkaline Pxyfzeozjxo3989-37-90 06:27:00* Test Item Value Reference Range Interpretation Comments Alkaline Phosphatase (test code = 6768-6) 68 40-150 [facility] Tcyod3287-96-30 06:27:00* Test Item Value Reference Range Interpretation Comments Sodium Level (test code = 2951-2) 137 136-145 [facility] CenterPotassium Qrcrr7359-00-99 06:27:00* Test Item Value Reference Range Interpretation Comments Potassium Level (test code = 2823-3) 2.7 3.5-5.1 LL Results repeated and called to [place] at 0624 on 07/07/18 by Lisa henry Read back and verified.[facility] CenterChloride Level 2018-07-07 06:27:00* Test Item Value Reference Range Interpretation Comments Chloride Level (test code = 2075-0) 96 98-107 L [facility] CenterCarbon Dioxide Mdupz7829-04-71 06:27:00* Test Item Value Reference Range Interpretation Comments Carbon Dioxide Level (test code = 2028-9) 32 22-29 H [facility] CenterAnion Khf4423-29-55 06:27:00* Test Item Value Reference Range Interpretation Comments Anion Gap (test code = 99981-9) 11.7 8-16 [facility] CenterBlood Urea Vacacaum7973-45-56 06:27:00* Test Item Value Reference Range Interpretation Comments Blood Urea Nitrogen (test code = 3094-0) 6 7-26 L [facility] CenterCreatinine2019-04-10 06:27:00* Test Item Value Reference Range Interpretation Comments Creatinine (test code = 2160-0) 0.85 0.72-1.25 [facility] CenterBUN/Creatinine Gxmze5202-23-61 06:27:00* Test Item Value Reference Range Interpretation Comments BUN/Creatinine Ratio (test code = 3097-3) 7 6-25 [facility] CenterEstimat Glomerular Filtration Rate 2018-07-07 06:27:00* Test Item Value Reference Range Interpretation Comments Estimat Glomerular Filtration Rate (test code = 608303140) > 60 >60 Ranges were taken from the National Kidney Disease Education Program and the [facility] literature.Reference ranges:60 or greater: Ifiwmr27-33 ( for 3 consecutive months): Chronic kidney disease 15 or less: Kidney failureCitizens Medical CenterGlucose Gmhok5350-68-34 06:27:00* Test Item Value Reference Range Interpretation Comments Glucose Level (test code = JAS0007) 136 74-118 H [facility] CenterCalcium Xjkip8656-44-96 06:27:00* Test Item Value Reference Range Interpretation Comments Calcium Level (test code = 89103-2) 8.4 8.4-10.2 [facility] CenterTotal Ympgcwdnf0281-20-09 06:27:00* Test Item Value Reference Range Interpretation Comments Total Bilirubin (test code = 1975-2) 0.5 0.2-1.2 [facility] CenterAspartate Amino Transf (AST/SGOT) 2018-07-07 06:27:00* Test Item Value Reference Range Interpretation Comments Aspartate Amino Transf (AST/SGOT) (test code = Aspartate Amino Transf (AST/SGOT)) 12 5-34 [facility] CenterAlanine Aminotransferase (ALT/SGPT) 2018-07-07 06:27:00* Test Item Value Reference Range Interpretation Comments Alanine Aminotransferase (ALT/SGPT) (test code = 1742-6) < 6 0-55 [facility] Tytiaoq8731-51-13 06:27:00* Test Item Value Reference Range Interpretation Comments Total Protein (test code = 2885-2) 5.8 6.5-8.1 L [facility] CenterAlbumin2019-04-10 06:27:00* Test Item Value Reference Range Interpretation Comments Albumin (test code = 1751-7) 3.1 3.5-5.0 L [facility] CenterGlobulin2019-04-10 06:27:00* Test Item Value Reference Range Interpretation Comments Globulin (test code = 54478-3) 2.7 2.3-3.5 [facility] CenterAlbumin/Globulin Vcktp8214-06-93 06:27:00 * Test Item Value Reference Range Interpretation Comments Albumin/Globulin Ratio (test code = 1759-0) 1.1 0.8-2.0 [facility] CenterAlkaline Hjbjivxxiwc0150-56-47 06:27:00* Test Item Value Reference Range Interpretation Comments Alkaline Phosphatase (test code = 6768-6) 68 40-150 [facility] Oqtyd2370-72-49 06:27:00* Test Item Value Reference Range Interpretation Comments Sodium Level (test code = 2951-2) 137 136-145 [facility] CenterPotassium Ajfne7674-36-81 06:27:00* Test Item Value Reference Range Interpretation Comments Potassium Level (test code = 2823-3) 2.7 3.5-5.1 LL Results repeated and called to [place] at 0624 on 07/07/18 by Lisa henry Read back and verified.[facility] CenterChloride Level 2018-07-07 06:27:00* Test Item Value Reference Range Interpretation Comments Chloride Level (test code = 2075-0) 96 98-107 L [facility] CenterCarbon Dioxide Mkfbm1079-92-74 06:27:00* Test Item Value Reference Range Interpretation Comments Carbon Dioxide Level (test code = 2028-9) 32 22-29 H [facility] CenterAnion Osa0283-42-14 06:27:00* Test Item Value Reference Range Interpretation Comments Anion Gap (test code = 31788-4) 11.7 8-16 [facility] CenterBlood Urea Xmrryrha2660-42-83 06:27:00* Test Item Value Reference Range Interpretation Comments Blood Urea Nitrogen (test code = 3094-0) 6 7-26 L [facility] CenterCreatinine2019-04-10 06:27:00* Test Item Value Reference Range Interpretation Comments Creatinine (test code = 2160-0) 0.85 0.72-1.25 [facility] CenterBUN/Creatinine Oedbv3745-23-44 06:27:00* Test Item Value Reference Range Interpretation Comments BUN/Creatinine Ratio (test code = 3097-3) 7 6-25 [facility] CenterEstimat Glomerular Filtration Rate 2018-07-07 06:27:00* Test Item Value Reference Range Interpretation Comments Estimat Glomerular Filtration Rate (test code = 074756780) > 60 >60 Ranges were taken from the National Kidney Disease Education Program and the [facility] literature.Reference ranges:60 or greater: Vuvwwc54-79 ( for 3 consecutive months): Chronic kidney disease 15 or less: Kidney failureCitizens Medical CenterGlucose Pytke2571-99-17 06:27:00* Test Item Value Reference Range Interpretation Comments Glucose Level (test code = JAW0797) 136 74-118 H [facility] CenterCalcium Gpatu5123-62-21 06:27:00* Test Item Value Reference Range Interpretation Comments Calcium Level (test code = 40520-3) 8.4 8.4-10.2 [facility] CenterTotal Jsxzqajlz8927-23-56 06:27:00* Test Item Value Reference Range Interpretation Comments Total Bilirubin (test code = 1975-2) 0.5 0.2-1.2 [facility] CenterAspartate Amino Transf (AST/SGOT) 2018-07-07 06:27:00* Test Item Value Reference Range Interpretation Comments Aspartate Amino Transf (AST/SGOT) (test code = Aspartate Amino Transf (AST/SGOT)) 12 5-34 [facility] CenterAlanine Aminotransferase (ALT/SGPT) 2018-07-07 06:27:00* Test Item Value Reference Range Interpretation Comments Alanine Aminotransferase (ALT/SGPT) (test code = 1742-6) < 6 0-55 [facility] CenterTotal Tirxolg6665-62-91 06:27:00* Test Item Value Reference Range Interpretation Comments Total Protein (test code = 2885-2) 5.8 6.5-8.1 L [facility] CenterAlbumin2019-04-10 06:27:00* Test Item Value Reference Range Interpretation Comments Albumin (test code = 1751-7) 3.1 3.5-5.0 L [facility] CenterGlobulin2019-04-10 06:27:00* Test Item Value Reference Range Interpretation Comments Globulin (test code = 60851-2) 2.7 2.3-3.5 [facility] CenterAlbumin/Globulin Uyaam1883-90-88 06:27:00 * Test Item Value Reference Range Interpretation Comments Albumin/Globulin Ratio (test code = 1759-0) 1.1 0.8-2.0 [facility] CenterAlkaline Nwecupksfwo0033-65-31 06:27:00* Test Item Value Reference Range Interpretation Comments Alkaline Phosphatase (test code = 6768-6) 68 40-150 [facility] CenterTotal Afbzqanpi7872-53-13 06:27:00* Test Item Value Reference Range Interpretation Comments Total Bilirubin (test code = 1975-2) 0.5 0.2-1.2 [facility] CenterAspartate Amino Transf (AST/SGOT) 2018-07-07 06:27:00* Test Item Value Reference Range Interpretation Comments Aspartate Amino Transf (AST/SGOT) (test code = Aspartate Amino Transf (AST/SGOT)) 12 5-34 [facility] CenterAlanine Aminotransferase (ALT/SGPT) 2018-07-07 06:27:00* Test Item Value Reference Range Interpretation Comments Alanine Aminotransferase (ALT/SGPT) (test code = 1742-6) < 6 0-55 [facility]To[facility] Cxkjhgb7638-45-32 06:27:00* Test Item Value Reference Range Interpretation Comments Total Protein (test code = 2885-2) 5.8 6.5-8.1 L [facility] CenterAlbumin2019-04-10 06:27:00* Test Item Value Reference Range Interpretation Comments Albumin (test code = 1751-7) 3.1 3.5-5.0 L [facility] CenterGlobulin2019-04-10 06:27:00* Test Item Value Reference Range Interpretation Comments Globulin (test code = 28998-7) 2.7 2.3-3.5 [facility] CenterAlbumin/Globulin Lyejj3136-02-49 06:27:00 * Test Item Value Reference Range Interpretation Comments Albumin/Globulin Ratio (test code = 1759-0) 1.1 0.8-2.0 [facility] CenterAlkaline Nmejpmhhpcn1612-01-98 06:27:00* Test Item Value Reference Range Interpretation Comments Alkaline Phosphatase (test code = 6768-6) 68 40-150 [facility] CenterTotal Lafprzvnh9880-33-98 06:27:00* Test Item Value Reference Range Interpretation Comments Total Bilirubin (test code = 1975-2) 0.5 0.2-1.2 [facility] CenterAspartate Amino Transf (AST/SGOT) 2018-07-07 06:27:00* Test Item Value Reference Range Interpretation Comments Aspartate Amino Transf (AST/SGOT) (test code = Aspartate Amino Transf (AST/SGOT)) 12 5-34 [facility] CenterAlanine Aminotransferase (ALT/SGPT) 2018-07-07 06:27:00* Test Item Value Reference Range Interpretation Comments Alanine Aminotransferase (ALT/SGPT) (test code = 1742-6) < 6 0-55 [facility] CenterToacad[facility] healthcare Geliulj2937-29-65 06:27:00* Test Item Value Reference Range Interpretation Comments Total Protein (test code = 2885-2) 5.8 6.5-8.1 L [facility] CenterAlbumin2019-04-10 06:27:00* Test Item Value Reference Range Interpretation Comments Albumin (test code = 1751-7) 3.1 3.5-5.0 L [facility] CenterGlobulin2019-04-10 06:27:00* Test Item Value Reference Range Interpretation Comments Globulin (test code = 50339-0) 2.7 2.3-3.5 [facility] CenterAlbumin/Globulin Nqevf6877-41-79 06:27:00 * Test Item Value Reference Range Interpretation Comments Albumin/Globulin Ratio (test code = 1759-0) 1.1 0.8-2.0 [facility] CenterAlkaline Ggldmqwsbmk6549-83-49 06:27:00* Test Item Value Reference Range Interpretation Comments Alkaline Phosphatase (test code = 6768-6) 68 40-150 [facility] CenterTotal Xsbmugobt7433-80-63 06:27:00* Test Item Value Reference Range Interpretation Comments Total Bilirubin (test code = 1975-2) 0.5 0.2-1.2 [facility] CenterAspartate Amino Transf (AST/SGOT) 2018-07-07 06:27:00* Test Item Value Reference Range Interpretation Comments Aspartate Amino Transf (AST/SGOT) (test code = Aspartate Amino Transf (AST/SGOT)) 12 5-34 [facility] CenterAlanine Aminotransferase (ALT/SGPT) 2018-07-07 06:27:00* Test Item Value Reference Range Interpretation Comments Alanine Aminotransferase (ALT/SGPT) (test code = 1742-6) < 6 0-55 [facility] CenterTotal Unkvtjz0267-76-54 06:27:00* Test Item Value Reference Range Interpretation Comments Total Protein (test code = 2885-2) 5.8 6.5-8.1 L [facility] CenterAlbumin2019-04-10 06:27:00* Test Item Value Reference Range Interpretation Comments Albumin (test code = 1751-7) 3.1 3.5-5.0 L [facility] CenterGlobulin2019-04-10 06:27:00* Test Item Value Reference Range Interpretation Comments Globulin (test code = 79419-0) 2.7 2.3-3.5 [facility] CenterAlbumin/Globulin Secfp2874-72-25 06:27:00 * Test Item Value Reference Range Interpretation Comments Albumin/Globulin Ratio (test code = 1759-0) 1.1 0.8-2.0 [facility] CenterAlkaline Taiuinrlrtt0335-52-26 06:27:00* Test Item Value Reference Range Interpretation Comments Alkaline Phosphatase (test code = 6768-6) 68 40-150 [facility] CenterWhite Blood Dzcir4000-71-47 05:57:00* Test Item Value Reference Range Interpretation Comments White Blood Count (test code = 6690-2) 7.71 4.8-10.8 [facility] CenterRed Blood Nbpvw4090-22-32 05:57:00* Test Item Value Reference Range Interpretation Comments Red Blood Count (test code = 789-8) 3.90 4.3-5.7 L [facility] CenterHemoglobin2019-04-10 05:57:00* Test Item Value Reference Range Interpretation Comments Hemoglobin (test code = 58447-5) 11.2 14.0-18.0 L [facility] CenterHematocrit2019-04-10 05:57:00* Test Item Value Reference Range Interpretation Comments Hematocrit (test code = 4544-3) 33.8 38.2-49.6 L [facility] CenterMean Corpuscular Sbrrap2252-97-72 05:57:00* Test Item Value Reference Range Interpretation Comments Mean Corpuscular Volume (test code = 787-2) 86.7 81-99 [facility] CenterMean Corpuscular Sehiunzytk4268-22-92 05:57:00* Test Item Value Reference Range Interpretation Comments Mean Corpuscular Hemoglobin (test code = 785-6) 28.7 28-32 [facility] CenterMean Corpuscular Hemoglobin Concent 2018-07-07 05:57:00* Test Item Value Reference Range Interpretation Comments Mean Corpuscular Hemoglobin Concent (test code = 786-4) 33.1 31-35 [facility] CenterRed Cell Distribution Jvztp0477-59-78 05:57:00* Test Item Value Reference Range Interpretation Comments Red Cell Distribution Width (test code = 65213-9) 13.2 11.7 -14.4 [facility] CenterPlatelet Zgjom0270-71-58 05:57:00* Test Item Value Reference Range Interpretation Comments Platelet Count (test code = 777-3) 182 140-360 [facility] CenterNeutrophils (%) (Auto)2018-07-07 05:57:00 * Test Item Value Reference Range Interpretation Comments Neutrophils (%) (Auto) (test code = 94780-2) 54.0 38.7-80.0 [facility] CenterLymphocytes (%) (Auto)2018-07-07 05:57:00 * Test Item Value Reference Range Interpretation Comments Lymphocytes (%) (Auto) (test code = 736-9) 20.6 18.0-39.1 [facility] CenterMonocytes (%) (Auto)2018-07-07 05:57:00* Test Item Value Reference Range Interpretation Comments Monocytes (%) (Auto) (test code = 5905-5) 19.5 4.4-11.3 H [facility] CenterEosinophils (%) (Auto)2018-07-07 05:57:00 * Test Item Value Reference Range Interpretation Comments Eosinophils (%) (Auto) (test code = 713-8) 5.3 0.0-6.0 [facility] CenterBasophils (%) (Auto)2018-07-07 05:57:00* Test Item Value Reference Range Interpretation Comments Basophils (%) (Auto) (test code = 706-2) 0.5 0.0-1.0 [facility] CenterIM GRANULOCYTES %2018-07-07 05:57:00* Test Item Value Reference Range Interpretation Comments IM GRANULOCYTES % (test code = IM GRANULOCYTES %) 0.1 0.0- 1.0 [facility] CenterNeutrophils # (Auto)2018-07-07 05:57:00* Test Item Value Reference Range Interpretation Comments Neutrophils # (Auto) (test code = 751-8) 4.2 2.1-6.9 [facility] CenterLymphocytes # (Auto)2018-07-07 05:57:00* Test Item Value Reference Range Interpretation Comments Lymphocytes # (Auto) (test code = 32381-2) 1.6 1.0-3.2 [facility] CenterMonocytes # (Auto)2018-07-07 05:57:00* Test Item Value Reference Range Interpretation Comments Monocytes # (Auto) (test code = 742-7) 1.5 0.2-0.8 H [facility] CenterEosinophils # (Auto)2018-07-07 05:57:00* Test Item Value Reference Range Interpretation Comments Eosinophils # (Auto) (test code = 711-2) 0.4 0.0-0.4 [facility] CenterBasophils # (Auto)2018-07-07 05:57:00* Test Item Value Reference Range Interpretation Comments Basophils # (Auto) (test code = 704-7) 0.0 0.0-0.1 [facility] CenterAbsolute Immature Granulocyte (auto 2018-07-07 05:57:00* Test Item Value Reference Range Interpretation Comments Absolute Immature Granulocyte (auto (zeenat t code = Absolute Immature Granulocyte (auto) 0.01 0-0.1 [facility] CenterWhite Blood Dghke4558-55-63 05:57:00* Test Item Value Reference Range Interpretation Comments White Blood Count (test code = 6690-2) 7.71 4.8-10.8 [facility] CenterRed Blood Nslcu5476-41-25 05:57:00* Test Item Value Reference Range Interpretation Comments Red Blood Count (test code = 789-8) 3.90 4.3-5.7 L [facility] CenterHemoglobin2019-04-10 05:57:00* Test Item Value Reference Range Interpretation Comments Hemoglobin (test code = 61930-8) 11.2 14.0-18.0 L [facility] CenterHematocrit2019-04-10 05:57:00* Test Item Value Reference Range Interpretation Comments Hematocrit (test code = 4544-3) 33.8 38.2-49.6 L [facility] CenterMean Corpuscular Mjnjag5619-13-39 05:57:00* Test Item Value Reference Range Interpretation Comments Mean Corpuscular Volume (test code = 787-2) 86.7 81-99 [facility] CenterMean Corpuscular Onqepjauks2090-33-10 05:57:00* Test Item Value Reference Range Interpretation Comments Mean Corpuscular Hemoglobin (test code = 785-6) 28.7 28-32 [facility] CenterMean Corpuscular Hemoglobin Concent 2018-07-07 05:57:00* Test Item Value Reference Range Interpretation Comments Mean Corpuscular Hemoglobin Concent (test code = 786-4) 33.1 31-35 [facility] CenterRed Cell Distribution Lbyjo4800-58-58 05:57:00* Test Item Value Reference Range Interpretation Comments Red Cell Distribution Width (test code = 09217-0) 13.2 11.7 -14.4 [facility] CenterPlatelet Cfoju6472-09-02 05:57:00* Test Item Value Reference Range Interpretation Comments Platelet Count (test code = 777-3) 182 140-360 [facility] CenterNeutrophils (%) (Auto)2018-07-07 05:57:00 * Test Item Value Reference Range Interpretation Comments Neutrophils (%) (Auto) (test code = 19272-0) 54.0 38.7-80.0 [facility] CenterLymphocytes (%) (Auto)2018-07-07 05:57:00 * Test Item Value Reference Range Interpretation Comments Lymphocytes (%) (Auto) (test code = 736-9) 20.6 18.0-39.1 [facility] CenterMonocytes (%) (Auto)2018-07-07 05:57:00* Test Item Value Reference Range Interpretation Comments Monocytes (%) (Auto) (test code = 5905-5) 19.5 4.4-11.3 H [facility] CenterEosinophils (%) (Auto)2018-07-07 05:57:00 * Test Item Value Reference Range Interpretation Comments Eosinophils (%) (Auto) (test code = 713-8) 5.3 0.0-6.0 [facility] CenterBasophils (%) (Auto)2018-07-07 05:57:00* Test Item Value Reference Range Interpretation Comments Basophils (%) (Auto) (test code = 706-2) 0.5 0.0-1.0 [facility] CenterIM GRANULOCYTES %2018-07-07 05:57:00* Test Item Value Reference Range Interpretation Comments IM GRANULOCYTES % (test code = IM GRANULOCYTES %) 0.1 0.0- 1.0 [facility] CenterNeutrophils # (Auto)2018-07-07 05:57:00* Test Item Value Reference Range Interpretation Comments Neutrophils # (Auto) (test code = 751-8) 4.2 2.1-6.9 [facility] CenterLymphocytes # (Auto)2018-07-07 05:57:00* Test Item Value Reference Range Interpretation Comments Lymphocytes # (Auto) (test code = 88299-9) 1.6 1.0-3.2 [facility] CenterMonocytes # (Auto)2018-07-07 05:57:00* Test Item Value Reference Range Interpretation Comments Monocytes # (Auto) (test code = 742-7) 1.5 0.2-0.8 H [facility] CenterEosinophils # (Auto)2018-07-07 05:57:00* Test Item Value Reference Range Interpretation Comments Eosinophils # (Auto) (test code = 711-2) 0.4 0.0-0.4 [facility] CenterBasophils # (Auto)2018-07-07 05:57:00* Test Item Value Reference Range Interpretation Comments Basophils # (Auto) (test code = 704-7) 0.0 0.0-0.1 [facility] CenterAbsolute Immature Granulocyte (auto 2018-07-07 05:57:00* Test Item Value Reference Range Interpretation Comments Absolute Immature Granulocyte (auto (zeenat t code = Absolute Immature Granulocyte (auto) 0.01 0-0.1 [facility] CenterWhite Blood Vtaju1338-31-69 05:57:00* Test Item Value Reference Range Interpretation Comments White Blood Count (test code = 6690-2) 7.71 4.8-10.8 [facility] CenterRed Blood Pwczg8902-53-99 05:57:00* Test Item Value Reference Range Interpretation Comments Red Blood Count (test code = 789-8) 3.90 4.3-5.7 L [facility] CenterHemoglobin2019-04-10 05:57:00* Test Item Value Reference Range Interpretation Comments Hemoglobin (test code = 12605-0) 11.2 14.0-18.0 L [facility] CenterHematocrit2019-04-10 05:57:00* Test Item Value Reference Range Interpretation Comments Hematocrit (test code = 4544-3) 33.8 38.2-49.6 L [facility] CenterMean Corpuscular Wyyteo0012-25-84 05:57:00* Test Item Value Reference Range Interpretation Comments Mean Corpuscular Volume (test code = 787-2) 86.7 81-99 [facility] CenterMean Corpuscular Lzyvuacazs9931-77-04 05:57:00* Test Item Value Reference Range Interpretation Comments Mean Corpuscular Hemoglobin (test code = 785-6) 28.7 28-32 [facility] CenterMean Corpuscular Hemoglobin Concent 2018-07-07 05:57:00* Test Item Value Reference Range Interpretation Comments Mean Corpuscular Hemoglobin Concent (test code = 786-4) 33.1 31-35 [facility] CenterRed Cell Distribution Qumuq6138-16-02 05:57:00* Test Item Value Reference Range Interpretation Comments Red Cell Distribution Width (test code = 49008-7) 13.2 11.7 -14.4 [facility] CenterPlatelet Suenk9713-60-97 05:57:00* Test Item Value Reference Range Interpretation Comments Platelet Count (test code = 777-3) 182 140-360 [facility] CenterNeutrophils (%) (Auto)2018-07-07 05:57:00 * Test Item Value Reference Range Interpretation Comments Neutrophils (%) (Auto) (test code = 59538-2) 54.0 38.7-80.0 [facility] CenterLymphocytes (%) (Auto)2018-07-07 05:57:00 * Test Item Value Reference Range Interpretation Comments Lymphocytes (%) (Auto) (test code = 736-9) 20.6 18.0-39.1 [facility] CenterMonocytes (%) (Auto)2018-07-07 05:57:00* Test Item Value Reference Range Interpretation Comments Monocytes (%) (Auto) (test code = 5905-5) 19.5 4.4-11.3 H [facility] CenterEosinophils (%) (Auto)2018-07-07 05:57:00 * Test Item Value Reference Range Interpretation Comments Eosinophils (%) (Auto) (test code = 713-8) 5.3 0.0-6.0 [facility] CenterBasophils (%) (Auto)2018-07-07 05:57:00* Test Item Value Reference Range Interpretation Comments Basophils (%) (Auto) (test code = 706-2) 0.5 0.0-1.0 [facility] CenterIM GRANULOCYTES %2018-07-07 05:57:00* Test Item Value Reference Range Interpretation Comments IM GRANULOCYTES % (test code = IM GRANULOCYTES %) 0.1 0.0- 1.0 [facility] CenterNeutrophils # (Auto)2018-07-07 05:57:00* Test Item Value Reference Range Interpretation Comments Neutrophils # (Auto) (test code = 751-8) 4.2 2.1-6.9 [facility])2018-07-07 05:57:00* Test Item Value Reference Range Interpretation Comments Lymphocytes # (Auto) (test code = 16321-7) 1.6 1.0-3.2 [facility])2018-07-07 05:57:00* Test Item Value Reference Range Interpretation Comments Monocytes # (Auto) (test code = 742-7) 1.5 0.2-0.8 H [facility] (Auto)2018-07-07 05:57:00* Test Item Value Reference Range Interpretation Comments Eosinophils # (Auto) (test code = 711-2) 0.4 0.0-0.4 [facility] (Auto)2018-07-07 05:57:00* Test Item Value Reference Range Interpretation Comments Basophils # (Auto) (test code = 704-7) 0.0 0.0-0.1 [facility] Immature Granulocyte (auto 2018-07-07 05:57:00* Test Item Value Reference Range Interpretation Comments Absolute Immature Granulocyte (auto (zeenat t code = Absolute Immature Granulocyte (auto) 0.01 0-0.1 [facility] Center[facility] Whuyl9196-09-46 04:08:00* Test Item Value Reference Range Interpretation Comments Amylase Level (test code = 1798-8) 48 25-125 [facility]ase2019-04-[facility] 04:08:00* Test Item Value Reference Range Interpretation Comments Lipase (test code = 3040-3) < 4 8-78 L [facility] Dsvit9558-26-37 04:08:00* Test Item Value Reference Range Interpretation Comments Amylase Level (test code = 1798-8) 48 25-125 [facility] Orjxb9721-77-75 04:08:00* Test Item Value Reference Range Interpretation Comments Amylase Level (test code = 1798-8) 48 25-125 [facility] Azxpg2688-65-31 04:08:00* Test Item Value Reference Range Interpretation Comments Amylase Level (test code = 1798-8) 48 25-125 [facility] Iodhr5521-35-67 04:08:00* Test Item Value Reference Range Interpretation Comments Amylase Level (test code = 1798-8) 48 25-125 [facility] Ivkgr8238-55-52 04:08:00* Test Item Value Reference Range Interpretation Comments Amylase Level (test code = 1798-8) 48 25-125 [facility] [id number] 01:56:00* Test Item Value Reference Range Interpretation Comments Urine WBC (test code = 5821-4) 0-5 0-5 [facility] [id number] 01:56:00* Test Item Value Reference Range Interpretation Comments Urine RBC (test code = 19539-8) 0-5 0-5 [facility] Raxqppwk6176-35-57 01:56:00* Test Item Value Reference Range Interpretation Comments Urine Bacteria (test code = 44247-3) FEW NONE [facility] Epithelial Nxxjx0678-71-78 01:56:00 * Test Item Value Reference Range Interpretation Comments Urine Epithelial Cells (test code = 75883-4) FEW NONE [facility] Gkwyh2619-50-75 01:56:00* Test Item Value Reference Range Interpretation Comments Urine Mucus (test code = 8247-9) FEW RARE H [facility] IWE9163-62-49 01:56:00* Test Item Value Reference Range Interpretation Comments Urine WBC (test code = 5821-4) 0-5 0-5 [facility] SBB0771-53-84 01:56:00* Test Item Value Reference Range Interpretation Comments Urine RBC (test code = 45221-0) 0-5 0-5 [facility] Dyjtsbte6877-79-16 01:56:00* Test Item Value Reference Range Interpretation Comments Urine Bacteria (test code = 45183-1) FEW [facility] Epithelial Oqani1982-75-58 01:56:00 * Test Item Value Reference Range Interpretation Comments Urine Epithelial Cells (test code = 55491-5) FEW [facility] Narpz8673-68-19 01:56:00* Test Item Value Reference Range Interpretation Comments Urine Mucus (test code = 8247-9) FEW RARE H [facility] AHN1518-31-34 01:56:00* Test Item Value Reference Range Interpretation Comments Urine WBC (test code = 5821-4) 0-5 0-5 [facility] YBP9621-78-22 01:56:00* Test Item Value Reference Range Interpretation Comments Urine RBC (test code = 82659-1) 0-5 0-5 [facility] Yvwjkjcs1922-01-41 01:56:00* Test Item Value Reference Range Interpretation Comments Urine Bacteria (test code = 78863-5) FEW [facility] Epithelial Hxigg5205-30-11 01:56:00 * Test Item Value Reference Range Interpretation Comments Urine Epithelial Cells (test code = 18873-9) FEW [facility] Nohxd3013-36-51 01:56:00* Test Item Value Reference Range Interpretation Comments Urine Mucus (test code = 8247-9) FEW RARE H [facility] Keqpr3200-35-73 01:56:00* Test Item Value Reference Range Interpretation Comments Urine Mucus (test code = 8247-9) FEW RARE H [facility] Yyzao2047-34-52 01:56:00* Test Item Value Reference Range Interpretation Comments Urine Mucus (test code = 8247-9) FEW RARE H [facility] Rwili3664-44-72 01:56:00* Test Item Value Reference Range Interpretation Comments Urine Mucus (test code = 8247-9) FEW RARE H [facility] Ltviv6460-72-48 01:47:00* Test Item Value Reference Range Interpretation Comments Urine Color (test code = 5778-6) YELLOW YELLOW [facility] Gvyatpl5658-23-02 01:47:00* Test Item Value Reference Range Interpretation Comments Urine Clarity (test code = 38697-5) CLEAR CLEAR [facility] Specific Gylvfoo6522-67-72 01:47:00 * Test Item Value Reference Range Interpretation Comments Urine Specific [place] (test code = 5811-5) 1.020 1.010-1.02 5 [facility] hX1404-32-18 01:47:00* Test Item Value Reference Range Interpretation Comments Urine pH (test code = 82598-7) 8 5-[address] [facility] Leukocyte Itrysoax7217-52-34 01:47:00* Test Item Value Reference Range Interpretation Comments Urine Leukocyte Esterase (test code = 5799-2) NEGATIVE NEGATIVE [facility] Msxxtqz1682-11-48 01:47:00* Test Item Value Reference Range Interpretation Comments Urine Nitrite (test code = 43630-9) NEGATIVE NEGATIVE [facility] Emlnvnb6854-14-14 01:47:00* Test Item Value Reference Range Interpretation Comments Urine Protein (test code = 5804-0) 1+ NEGATIVE H [facility] Glucose (UA)2018-07-02 01:47:00* Test Item Value Reference Range Interpretation Comments Urine Glucose (UA) (test code = 2349-9) NEGATIVE NEGATIVE [facility] Fzqyrcv3428-72-40 01:47:00* Test Item Value Reference Range Interpretation Comments Urine Ketones (test code = 39003-6) 2+ NEGATIVE H [facility] Xnhkepvlshgl2191-40-56 01:47:00* Test Item Value Reference Range Interpretation Comments Urine Urobilinogen (test code = 72828-3) 0.2 0.2-1 [facility] Odruywgfh9363-98-40 01:47:00* Test Item Value Reference Range Interpretation Comments Urine Bilirubin (test code = 1978-6) 1+ NEGATIVE H Confirmatory test currently unavailable. False positive results may occur.[facility] Tdgro2411-63-44 01:47:00* Test Item Value Reference Range Interpretation Comments Urine Blood (test code = 86188-9) NEGATIVE NEGATIVE [facility] Mcnin7124-81-30 01:47:00* Test Item Value Reference Range Interpretation Comments Urine Color (test code = 5778-6) YELLOW YELLOW [facility] Vyoqfcb7815-79-19 01:47:00* Test Item Value Reference Range Interpretation Comments Urine Clarity (test code = 88893-4) CLEAR CLEAR [facility] Specific Vfpndrv6241-84-29 01:47:00 * Test Item Value Reference Range Interpretation Comments Urine Specific [place] (test code = 5811-5) 1.020 1.010-1.02 5 [facility] nS1979-21-54 01:47:00* Test Item Value Reference Range Interpretation Comments Urine pH (test code = 15965-3) 8 5-7 H [facility] Leukocyte Qblvosws0994-52-26 01:47:00* Test Item Value Reference Range Interpretation Comments Urine Leukocyte Esterase (test code = 5799-2) NEGATIVE NEGATIVE [facility] Lvndokd2399-17-23 01:47:00* Test Item Value Reference Range Interpretation Comments Urine Nitrite (test code = 76743-5) NEGATIVE NEGATIVE [facility] Pmtaofx1843-57-42 01:47:00* Test Item Value Reference Range Interpretation Comments Urine Protein (test code = 5804-0) 1+ NEGATIVE H [facility] Glucose (UA)2018-07-02 01:47:00* Test Item Value Reference Range Interpretation Comments Urine Glucose (UA) (test code = 2349-9) NEGATIVE NEGATIVE [facility] Taskurb1363-68-43 01:47:00* Test Item Value Reference Range Interpretation Comments Urine Ketones (test code = 22876-0) 2+ NEGATIVE H [facility] Jsoxsozidjym2976-34-75 01:47:00* Test Item Value Reference Range Interpretation Comments Urine Urobilinogen (test code = 19007-4) 0.2 0.2-1 [facility] Xuxwwpfey8850-09-56 01:47:00* Test Item Value Reference Range Interpretation Comments Urine Bilirubin (test code = 1978-6) 1+ NEGATIVE H Confirmatory test currently unavailable. False positive results may occur.[facility] Lajtb3333-30-26 01:47:00* Test Item Value Reference Range Interpretation Comments Urine Blood (test code = 24879-8) NEGATIVE NEGATIVE [facility] Rrhxm3426-42-60 01:47:00* Test Item Value Reference Range Interpretation Comments Urine Color (test code = 5778-6) YELLOW YELLOW [facility] Tbiztrq6219-53-52 01:47:00* Test Item Value Reference Range Interpretation Comments Urine Clarity (test code = 68639-1) CLEAR CLEAR [facility] Specific Guaopof3673-28-98 01:47:00 * Test Item Value Reference Range Interpretation Comments Urine Specific [place] (test code = 5811-5) 1.020 1.010-1.02 5 [facility] gI6235-18-90 01:47:00* Test Item Value Reference Range Interpretation Comments Urine pH (test code = 29516-4) 8 5-[address] [facility] Leukocyte Ltqzbati0172-97-62 01:47:00* Test Item Value Reference Range Interpretation Comments Urine Leukocyte Esterase (test code = 5799-2) NEGATIVE NEGATIVE [facility] Sgbawhw7164-13-97 01:47:00* Test Item Value Reference Range Interpretation Comments Urine Nitrite (test code = 75378-2) NEGATIVE NEGATIVE [facility] Fpdhaag2867-97-80 01:47:00* Test Item Value Reference Range Interpretation Comments Urine Protein (test code = 5804-0) 1+ NEGATIVE H [facility] Glucose (UA)2018-07-02 01:47:00* Test Item Value Reference Range Interpretation Comments Urine Glucose (UA) (test code = 2349-9) NEGATIVE NEGATIVE [facility] Nqofxpc6468-16-95 01:47:00* Test Item Value Reference Range Interpretation Comments Urine Ketones (test code = 86543-4) 2+ NEGATIVE H [facility] Wujmigodhrcf8657-33-30 01:47:00* Test Item Value Reference Range Interpretation Comments Urine Urobilinogen (test code = 88937-5) 0.2 0.2-1 [facility] Yvyblchhu1030-41-67 01:47:00* Test Item Value Reference Range Interpretation Comments Urine Bilirubin (test code = 1978-6) 1+ NEGATIVE H Confirmatory test currently unavailable. False positive results may occur.[facility] Cyyxu5471-52-99 01:47:00* Test Item Value Reference Range Interpretation Comments Urine Blood (test code = 60195-1) NEGATIVE NEGATIVE [facility] VCHLKAFD3745-57-01 10:20:00 [facility] [address] [place] [address] Patient Name: BREE LINDSAY MR #: [id number] : [id number] Age/Sex: 42/M Req #: [id number] Adm Physician: Ordered by: TAVIA GARCIA MD Report #: [id number] Location: Room/Bed: Procedure: [id number] U S/US ABDOMEN COMPLETE Exam Date: Exam [...] 102 3 COPY TO: TAVIA GARCIA MD XTRMHC5980-72-41 05:55:00* Test Item Value Reference Range Interpretation Comments GLUBED (test code = GLUBED) 195 mg/dL 74-106 H Performed by certified chucking lathe operator at [facility] DCFBWC5705-49-53 17:33:00* Test Item Value Reference Range Interpretation Comments GLUBED (test code = GLUBED) 151 mg/dL 74-106 H Performed by certified chucking lathe operator at [facility] BASIC METABOLIC ITOAS8893-75-03 15:46:00* Test Item Value Reference Range Interpretation [...] code = CA) 7.7 mg/dL 8.5-10.1 L [id number] 12:16:00* Test Item Value Reference Range Interpretation Comments GLUBED (test code = GLUBED) 136 mg/dL 74-106 H Performed by certified chucking lathe operator at [facility] JNPVKJ3884-00-57 07:53:00* Test Item Value Reference Range Interpretation Comments GLUBED (test code = GLUBED) 129 mg/dL 74-106 H Performed by certified chucking lathe operator at [facility] COMPREHENSIVE METABOLIC FSTEA4081-97-23 06:41:00* Test Item Value Reference Range Interpretation Comments SODIUM (test code = NA) 139 mmol/L 136-145 N POTASSIUM (test code = K) 2.7 mmol/L 3.5-5.1 [facility] called to [id number] by [email or web address] 05/16/18 0636Critical results verified and [...] due to change in reagent. CBC W/AUTO [id number] 05:31:00* Test Item Value Reference Range Interpretation [...] code = NRBC#) 0.00 K/mm3 0.0-0.1 N [id number] 20:43:00* Test Item Value Reference Range Interpretation Comments GLUBED (test code = GLUBED) 122 mg/dL 74-106 H Performed by certified chucking lathe operator at [facility] NYNKWI4764-50-24 17:15:00* Test Item Value Reference Range Interpretation Comments GLUBED (test code = GLUBED) 145 mg/dL 74-106 H Performed by certified chucking lathe operator at [facility] KWZQFS3543-20-60 11:46:00* Test Item Value Reference Range Interpretation Comments GLUBED (test code = GLUBED) 228 mg/dL 74-106 H Performed by certified chucking lathe operator at [facility] CNOMXP8639-48-31 07:49:00* Test Item Value Reference Range Interpretation Comments GLUBED (test code = GLUBED) 123 mg/dL 74-106 H Performed by certified chucking lathe operator at [facility] COMPREHENSIVE METABOLIC UEVOX9408-40-37 07:19:00* Test Item Value Reference Range Interpretation Comments SODIUM (test code = NA) 140 mmol/L 136-145 N POTASSIUM (test code = K) 2.9 mmol/L 3.5-5.1 L Re sults called to [id number] by [employer] [email or web address] 05/15/18 0716Critical results verified and read back [...] due to change in reagent. CBC W/AUTO [id number] 06:20:00* Test Item Value Reference Range Interpretation [...] code = NRBC#) 0.00 K/mm3 0.0-0.1 N [id number] 21:14:00* Test Item Value Reference Range Interpretation Comments GLUBED (test code = GLUBED) 152 mg/dL 74-106 H Performed by certified chucking lathe operator at [facility] TCZBUS1425-22-81 17:16:00* Test Item Value Reference Range Interpretation Comments GLUBED (test code = GLUBED) 140 mg/dL 74-106 H Performed by certified chucking lathe operator at [facility] KIELSY0790-21-11 11:55:00* Test Item Value Reference Range Interpretation Comments GLUBED (test code = GLUBED) 236 mg/dL 74-106 H Performed by certified chucking lathe operator at [facility] COMPREHENSIVE METABOLIC AVBAJ6630-13-35 08:50:00* Test Item Value Reference Range Interpretation [...] due to change in reagent. COMPREHENSIVE METABOLIC [id number] 08:38:00* Test Item Value Reference Range Interpretation [...] code = ALKP) IUnit/L 45-117 CBC W/AUTO [id number] 08:00:00* Test Item Value Reference Range Interpretation [...] DIFF REQUIRED (test code = MDIFF) NO [id number] 07:51:00* Test Item Value Reference Range Interpretation Comments GLUBED (test code = GLUBED) 210 mg/dL 74-106 H Performed by certified chucking lathe operator at [facility] YFAOKN9325-48-47 20:06:00* Test Item Value Reference Range Interpretation Comments GLUBED (test code = GLUBED) 278 mg/dL 74-106 H Performed by certified chucking lathe operator at [facility] QYQOPS4531-44-13 16:53:00* Test Item Value Reference Range Interpretation Comments GLUBED (test code = GLUBED) 236 mg/dL 74-106 H Performed by certified chucking lathe operator at [facility] DSXOGC2111-66-17 11:31:00* Test Item Value Reference Range Interpretation Comments GLUBED (test code = GLUBED) 269 mg/dL 74-106 H Performed by certified chucking lathe operator at [facility] [id number] 10:39:00* Test Item Value Reference Range Interpretation Comments GLUBED (test code = GLUBED) 298 mg/dL 74-106 H Performed by certified chucking lathe operator at [facility] COMPREHENSIVE METABOLIC KUCAL8436-08-88 06:29:00* Test Item Value Reference Range Interpretation [...] due to change in reagent. COMPREHENSIVE METABOLIC [id number] 06:10:00* Test Item Value Reference Range Interpretation [...] code = ALKP) IUnit/L 45-117 CBC W/AUTO [id number] 05:48:00* Test Item Value Reference Range Interpretation [...] DIFF REQUIRED (test code = MDIFF) NO [id number] 20:52:00* Test Item Value Reference Range Interpretation Comments GLUBED (test code = GLUBED) 238 mg/dL 74-106 H Performed by certified chucking lathe operator at [facility] IGUKVW4476-27-97 15:54:00* Test Item Value Reference Range Interpretation Comments GLUBED (test code = GLUBED) 199 mg/dL 74-106 H Performed by certified chucking lathe operator at [facility] WQWHCU6979-03-66 11:51:00* Test Item Value Reference Range Interpretation Comments GLUBED (test code = GLUBED) 265 mg/dL 74-106 H Performed by certified chucking lathe operator at [facility] [id number] 08:20:00* Test Item Value Reference Range Interpretation Comments GLYCOSYLATED HEMOGLOBIN (HA1C) (test code = GLYHGB) 10.6 % HbA1 4. 8-6.0 H ESTIMATED AVERAGE GLUCOSE (test code = EAG) 258 MG/DL COMPREHENSIVE METABOLIC [id number] 08:11:00* Test Item Value Reference Range Interpretation [...] result is a direct measurement.========= THYROID STIMULATING [id number] 08:11:00* Test Item Value Reference Range Interpretation Comments THYROID STIMULATING HORMONE (test code = TSH) 1.020 uIU/mL 0.36-3.7 4 N TSH REFERENCE RANGES: EUTHYROID: 0.35 - 4.3 mIU/mL HYPO : > 5.5 mIU/mL HYPER : < 0.35 mIU/mL COMPREHENSIVE METABOLIC [id number] 07:53:00* Test Item Value Reference Range Interpretation [...] code = LDL) mg/dL 100-129 THYROID STIMULATING [id number] 07:53:00* Test Item Value Reference Range Interpretation Comments THYROID STIMULATING HORMONE (test code = TSH) uIU/mL 0.36-3.7 4 CBC W/AUTO [id number] 07:51:00* Test Item Value Reference Range Interpretation [...] DIFF REQUIRED (test code = MDIFF) NO [id number] 07:10:00* Test Item Value Reference Range Interpretation Comments GLUBED (test code = GLUBED) 350 mg/dL 74-106 H Performed by certified chucking lathe operator at [facility] DRUGS OF ABUSE SCREEN [id number] 06:10:00* Test Item Value Reference Range Interpretation [...] code = [place]) NEGATIVE <300 ng/mL URINALYSIS [id number] 05:29:00* Test Item Value Reference Range Interpretation [...] Urine Source? Clean CatchDRUGS OF ABUSE SCREEN [id number] 05:12:00* Test Item Value Reference Range Interpretation [...] METHADONE (test code = [place]HAURN) <300 ng/mL [id number] 20:26:00* Test Item Value Reference Range Interpretation Comments GLUBED (test code = GLUBED) 285 mg/dL 74-106 H Performed by certified chucking lathe operator at [facility] OMLKON5216-25-92 13:32:00* Test Item Value Reference Range Interpretation Comments GLUBED (test code = GLUBED) 159 mg/dL 74-106 H Performed by certified chucking lathe operator at [facility] BASIC METABOLIC [id number] 09:38:00* Test Item Value Reference Range Interpretation [...] CA) 8.9 mg/dL 8.5-10.1 N HEPATIC FUNCTION [id number] 09:38:00* Test Item Value Reference Range Interpretation [...] reference range due to change in reagent. [id number] 09:38:00* Test Item Value Reference Range Interpretation Comments LIPASE (test code = LIP) 20 U/L 73.0-393.0 L BASIC METABOLIC [id number] 09:30:00* Test Item Value Reference Range Interpretation [...] code = CA) mg/dL 8.5-10.1 HEPATIC FUNCTION [id number] 09:30:00* Test Item Value Reference Range Interpretation [...] TOTAL (test code = ALKP) IUnit/L 45-117 [id number] 09:30:00* Test Item Value Reference Range Interpretation Comments LIPASE (test code = LIP) U/L 73.0-393.0 CBC W/O [id number] 09:13:00* Test Item Value Reference Range Interpretation [...] code = MPV) 10.6 fL 6.7-11.0 N [id number] 07:28:00* Test Item Value Reference Range Interpretation Comments GLUBED (test code = GLUBED) 173 mg/dL 74-106 H Performed by certified chucking lathe operator at [facility] [id number] 20:56:00* Test Item Value Reference Range Interpretation Comments GLUBED (test code = GLUBED) 181 mg/dL 74-106 H Performed by certified chucking lathe operator at [facility] [id number] 16:11:00* Test Item Value Reference Range Interpretation Comments GLUBED (test code = GLUBED) 245 mg/dL 74-106 H Performed by certified chucking lathe operator at [facility] [id number] 11:55:00* Test Item Value Reference Range Interpretation Comments GLUBED (test code = GLUBED) 309 mg/dL 74-106 H Performed by certified chucking lathe operator at [facility] [id number] 08:03:00* Test Item Value Reference Range Interpretation Comments GLUBED (test code = GLUBED) 241 mg/dL 74-106 H Performed by certified chucking lathe operator at [facility] [id number] 00:08:00* Test Item Value Reference Range Interpretation Comments GLUBED (test code = GLUBED) 175 mg/dL 74-106 H Performed by certified chucking lathe operator at [facility] [id number] 20:00:00* Test Item Value Reference Range Interpretation Comments GLUBED (test code = GLUBED) 167 mg/dL 74-106 H Performed by certified chucking lathe operator at [facility] [id number] 16:45:00* Test Item Value Reference Range Interpretation Comments GLUBED (test code = GLUBED) 208 mg/dL 74-106 H Performed by certified chucking lathe operator at [facility] [id number] 16:01:00* Test Item Value Reference Range Interpretation Comments GLUBED (test code = GLUBED) 47 mg/dL 74-106 LL [facility]~ [id number] 11:44:00* Test Item Value Reference Range Interpretation Comments GLUBED (test code = GLUBED) 317 mg/dL 74-106 H Performed by certified chucking lathe operator at [facility] [id number] 08:20:00* Test Item Value Reference Range Interpretation Comments GLUBED (test code = GLUBED) 271 mg/dL 74-106 H Performed by certified chucking lathe operator at [facility] CBC W/AUTO [id number] 05:45:00* Test Item Value Reference Range Interpretation [...] = MDIFF) NO, ONLY SCAN NEEDED DIFFERENTIAL [id number] 05:45:00* Test Item Value Reference Range Interpretation Comments STAIN ACCEPTABILITY (test code = STN ACCEPTABLE) STAIN ACCEPTABLE POLYCHROMASIA (test code = POLC) 1+ HYPOCHROMIA (test code = HYPO) 1+ PLATELET ESTIMATE (test code = PLTEST) ADEQUATE PLATELET MORPHOLOGY (test code = PLTMORPH) NORMAL CBC W/AUTO [id number] 05:08:00* Test Item Value Reference Range Interpretation [...] = MDIFF) NO, ONLY SCAN NEEDED DIFFERENTIAL [id number] 05:08:00* Test Item Value Reference Range Interpretation Comments STAIN ACCEPTABILITY (test code = STN ACCEPTABLE) CABOT RINGS (test code = CAB) MORPHOLOGY COMMENT (test code = MOC) PLATELET ESTIMATE (test code = PLTEST) PLATELET MORPHOLOGY (test code = PLTMORPH) CBC W/AUTO [id number] 05:08:00* Test Item Value Reference Range Interpretation [...] = MDIFF) NO, ONLY SCAN NEEDED DIFFERENTIAL [id number] 05:08:00* Test Item Value Reference Range Interpretation Comments STAIN ACCEPTABILITY (test code = STN ACCEPTABLE) MORPHOLOGY COMMENT (test code = MOC) PLATELET ESTIMATE (test code = PLTEST) PLATELET MORPHOLOGY (test code = PLTMORPH) CBC W/AUTO [id number] 05:08:00* Test Item Value Reference Range Interpretation [...] = MDIFF) NO, ONLY SCAN NEEDED DIFFERENTIAL [id number] 05:08:00* Test Item Value Reference Range Interpretation Comments STAIN ACCEPTABILITY (test code = STN ACCEPTABLE) MORPHOLOGY COMMENT (test code = MOC) PLATELET ESTIMATE (test code = PLTEST) PLATELET MORPHOLOGY (test code = PLTMORPH) CBC W/AUTO [id number] 05:08:00* Test Item Value Reference Range Interpretation [...] = MDIFF) NO, ONLY SCAN NEEDED DIFFERENTIAL [id number] 05:08:00* Test Item Value Reference Range Interpretation Comments STAIN ACCEPTABILITY (test code = STN ACCEPTABLE) CABOT RINGS (test code = CAB) MORPHOLOGY COMMENT (test code = MOC) PLATELET ESTIMATE (test code = PLTEST) PLATELET MORPHOLOGY (test code = PLTMORPH) COMPREHENSIVE METABOLIC [id number] 05:04:00* Test Item Value Reference Range Interpretation [...] due to change in reagent. COMPREHENSIVE METABOLIC [id number] 04:54:00* Test Item Value Reference Range Interpretation [...] TOTAL (test code = ALKP) IUnit/L 45-117 [id number] 21:00:00* Test Item Value Reference Range Interpretation Comments GLUBED (test code = GLUBED) 334 mg/dL 74-106 H Performed by certified chucking lathe operator at [facility] [id number] 16:10:00* Test Item Value Reference Range Interpretation Comments GLUBED (test code = GLUBED) 102 mg/dL 74-106 N Performed by certified chucking lathe operator at [facility] [id number] 15:59:00* Test Item Value Reference Range Interpretation Comments GLUBED (test code = GLUBED) 339 mg/dL 74-106 H Performed by certified chucking lathe operator at [facility] URINALYSIS [id number] 09:47:00* Test Item Value Reference Range Interpretation [...] 0-2 #/HPF 0-5 Urine Source? Clean CatchURINALYSIS [id number] 09:46:00* Test Item Value Reference Range Interpretation [...] HPF 0-5 Urine Source? Clean CatchBASIC METABOLIC [id number] 04:02:00* Test Item Value Reference Range Interpretation [...] CA) 9.3 mg/dL 8.5-10.1 N HEPATIC FUNCTION [id number] 04:02:00* Test Item Value Reference Range Interpretation [...] reference range due to change in reagent. [id number] 04:02:00* Test Item Value Reference Range Interpretation Comments LIPASE (test code = LIP) 22 U/L 73.0-393.0 L BASIC METABOLIC [id number] 03:53:00* Test Item Value Reference Range Interpretation [...] code = CA) mg/dL 8.5-10.1 HEPATIC FUNCTION [id number] 03:53:00* Test Item Value Reference Range Interpretation [...] TOTAL (test code = ALKP) IUnit/L 45-117 [id number] 03:53:00* Test Item Value Reference Range Interpretation Comments LIPASE (test code = LIP) U/L 73.0-393.0 CBC W/O [id number] 03:46:00* Test Item Value Reference Range Interpretation [...] code = MPV) 10.9 fL 6.7-11.0 N [id number] 17:23:00 RUN DATE: 12/16/17 Export - [facility] PAGE 1 RUN TIME: 1723 Specimen Inqui rhea RUN USER: INTERFACE PATIENT: BREE LINDSAY Perez ACCT #: [id number] LOC: [facility] U #: [id number] AGE/SX: 42/M ROOM: [facility] RE12/11/17YUNIEL DR: Olegario Diaz MD : 75 BED: A DIS: 12/13/17 STATUS: DIS IN TLOC: SPEC #: [id number] RECD: 12/14/17-1149 STATUS: SHAHRAM LUEVANO #: [id number] HUY: 12/11/17- SUBM DR: Kvng Izaguirre MD ENTERED: 12/14/17-1150 SP TYPE: STOMACH OTHR DR: Levi Natarajan i, MD ORDERED: GROSS COPIES TO: Kvng Izaugirre MD [address] [place] [address] Levi Lakhani MD [address] [place] [address] PROCEDURES: GROSS (12/15/17-1304 ) TISSUES: 1. GASTRIC [...] AND DYSPLASIA NEGATIVE FOR MALIGNANCY MYA/sm D [phone] CONTINUED ON NEXT PAGE RUN DATE: 12/16/17 [facility] PAGE 2 RUN TIME: 172 3 Specimen Inquiry RUN USER: INTER FACE SPEC #: [id number] PATIENT: BREE LINDSAY #[id number] (Con tinued) MACROSCOPIC The first specimen is [...] measuring 0.2 cm each. GROSS PERFORMED AT [facility] [address] [place] [address] [phone])[phone] MICROSCOPIC MICROSCOPIC PERFORMED AT [facility] All of the stains, including any controls performed, hao swift. [facility] [address] [place] [address] (p)[phone] PERFORMING SITE Diagnosis performed at: [facility], [place] [address] [place] [address] Signed SIGNATURE ON FILE Leigh Ann Fuller 12/16/17 1723 END OF REPORT
--- NOTE | 2019-11-07 18:58 | Emergency Department Note ---
History of Present Illnes History of Present Illness Chief Complaint: Abdominal Complaints History of Present Illness This is a 43 year old male Chief Complaint Comment Reports that Dr. Torers sent him here and has had N/V/D since yesterday at 1600 pt c/o epigastric abd pain with active vomiting witnessed here in department. Pt has hx of gastroparesis and was last seen here 2-3 weeks ago for the same, pt is diaphoretic and shaking. . Historian: Patient Arrival Mode: Car Onset (how long ago): day(s) (2) Location: epigastric Quality: dull Radiation: Denies non-radiation, Denies back, Denies neck, Denies extremity, Denies abdomen, Denies periumbilical, Denies flank, Denies proximal, Denies distal, Denies other Severity: moderate Onset quality: gradual Duration (how long): day(s) (2) Timing of current episode: intermittent Progression: waxing and waning Chronicity: new Context: Denies recent illness, Denies recent surgery, Denies recent immobilization, Denies recent travel, Denies trauma/injury, Denies new medications, Denies hx of DVT/PE, Denies non-compliance w/ medications, Denies other Relieving factors: none Exacerbating factors: none Associated symptoms: Reports nausea/vomiting; Denies denies other symptoms, Denies confusion, Denies chest pain, Denies cough, Denies diaphoresis, Denies fever/chills, Denies headaches, Denies loss of appetite, Denies malaise, Denies rash, Denies seizure, Denies shortness of breath, Denies syncope, Denies weakness, Denies other Treatments prior to arrival: none Past Medical/Family History Physician Review I have reviewed the patient's past medical and family history. Any updates have been documented here. Past Medical History Recent Fever: No Clinical Suspicion of Infectio: No New/Unexplained Change in Ment: No Past Medical History: Diabetes Other Medical History: gastroparesis Past Surgical History: Cholecysctectomy Other Surgery: left foot surgery Social History Smoking Cessation: Never Smoker Counseling Performed: Yes Alcohol Use: None Any Illegal Drug Use: Yes (marijuana) Physically hurt or threatened: No Other Last Tetanus: UNKNOWN Any Pre-Existing Lines (PICC,: No Review of Systems Review of Systems Constitutional: Reports no symptoms EENTM: Reports no symptoms Cardiovascular: Reports no symptoms Respiratory: Reports no symptoms Gastrointestinal: Reports as per HPI Genitourinary: Reports no symptoms Musculoskeletal: Reports no symptoms Integumentary: Reports no symptoms Neurological: Reports no symptoms Psychological: Reports no symptoms Endocrine: Reports no symptoms Hematological/Lymphatic: Reports no symptoms Physical Exam Related Data Allergies: Coded Allergies: No Known Allergies (Unverified , 07/02/18) Triage Vital Signs Vital Signs Date Time Temp Pulse Resp B/P (MAP) Pulse Ox O2 Delivery O2 Flow Rate FiO2 11/07/19 16:35 97.4 120 21 217/114 96 Room Air Vital signs reviewed: Yes Physical Exam CONSTITUTIONAL Constitutional: Present well-developed, Present well-nourished HENT HENT: Present normocephalic, Present atraumatic, Present oropharynx clear/moist, Present nose normal HENT L/R: Present left ext ear normal, Present right ext ear normal EYES Eyes: Reports PERRL, Reports conjunctivae normal NECK Neck: Present ROM normal PULMONARY Pulmonary: Present effort normal, Present breath sounds normal CARDIOVASCULAR Cardiovascular: Present regular rhythm, Present heart sounds normal, Present capillary refill normal, Present normal rate GASTROINTESTINAL Abdominal: Present soft, Present nontender, Present bowel sounds normal GENITOURINARY Genitourinary: Present exam deferred SKIN Skin: Present warm, Present dry MUSCULOSKELETAL Musculoskeletal: Present ROM normal NEUROLOGICAL Neurological: Present alert, Present oriented x 3, Present no gross motor or sensory deficits PSYCHOLOGICAL Psychological: Present mood/affect normal, Present judgement normal Results Laboratory Lab results reviewed: Yes Assessment & Plan Medical Decision Making MDM gastroparesis gastritis Reassessment Reassessment time: 18:57 Reassessment better Assessment & Plan Final Impression: (1) Abdominal pain, acute, epigastric (2) Gastroparesis (3) Vomiting (4) Hypertensive crisis (5) Tachycardia Depart Disposition: HOME, SELF-CARE Last Vital Signs Date Time Temp Pulse Resp B/P (MAP) Pulse Ox O2 Delivery O2 Flow Rate FiO2 11/07/19 16:35 97.4 120 21 217/114 96 Room Air Home Meds Active Scripts Acetaminophen With Codeine (TYLENOL WITH CODEINE #3 TABLET) 1 Each Tablet, 300 MG PO Q12H PRN for ABDOMINAL PAIN, #10 TAB Prov:JAREK LO NP 10/28/19 Promethazine Hcl (PROMETHAZINE HCL) 25 Mg Tablet, 25 MG PO Q6H for vomiting, #20 TAB Prov:FILIBERTO ROSENTHAL MD 09/21/19 Metoclopramide Hcl (REGLAN) 10 Mg Tablet, 1 TAB PO ACHS for 30 Days Before meals Prov:WALLYJAREK M INDUSTRIAL/ORGANIZATIONAL PSYCHOLOGIST 11/25/18 Pantoprazole Sodium* (PROTONIX) 40 Mg Tablet.dr, 40 MG PO DAILY for 30 Days Prov:JAREK LO NP 11/25/18 Reported Medications Ondansetron Hcl (ONDANSETRON HCL) 4 Mg Tablet, 4 MG SL Q6H PRN for NAUSEA 07/02/18 Insulin Glargine (LANTUS 3ML PEN) 100 Units/1 Ml Inj, 15 UNITS SQ HS 07/02/18 Lisinopril (LISINOPRIL) 5 Mg Tablet, 5 MG PO DAILY 07/02/18 Insulin Aspart (NOVOLOG) 100 Units/1 Ml Inj, 8 UNITS SQ TIDWM 07/02/18 Medications in the ED Morphine Sulfate 2 mg NOW STAT IV Last administered on 11/07/19at 17:10; Admin Dose 2 MG; Start 11/07/19 at 16:55; Stop 11/07/19 at 17:02; Status DC Sodium Chloride 1,000 ml @ 0 mls/hr Q0M STAT IV Last administered on 11/07/19at 17:10; Admin Dose 1,000 MLS/HR; Start 11/07/19 at 16:55; Stop 11/07/19 at 16:57; Status DC Promethazine HCl 25 mg STK-MED ONCE IM ; Start 11/07/19 at 17:08; Stop 11/07/19 at 17:06; Status DC Morphine Sulfate 4 mg STK-MED ONCE .ROUTE ; Start 11/07/19 at 17:08; Stop 11/07/19 at 17:06; Status DC Sodium Chloride 50 ml @ ud STK-MED ONCE .ROUTE ; Start 11/07/19 at 17:08; Stop 11/07/19 at 17:06; Status DC Sodium Chloride 1,000 ml @ ud STK-MED ONCE .ROUTE ; Start 11/07/19 at 17:09; Stop 11/07/19 at 17:06; Status DC Sodium Chloride 1,000 ml @ ud STK-MED ONCE .ROUTE ; Start 11/07/19 at 18:02; Stop 11/07/19 at 17:58; Status DC Sodium Chloride 1,000 ml @ 0 mls/hr Q0M STAT IV Last administered on 11/07/19at 18:00; Admin Dose 1,000 MLS/HR; Start 11/07/19 at 17:59; Stop 11/07/19 at 18:00; Status DC FILIBERTO ROSENTHAL MD Nov 07, 2019 18:58
== END 2019-11-07 19:30 | disposition home or self-care (01) ==
LOC: FSED 16:24
DX: R10.13 Epigastric pain (principal); K31.84 Gastroparesis; E11.65 Type 2 diabetes mellitus with hyperglycemia; I16.9 Hypertensive crisis, unspecified; R00.0 Tachycardia, unspecified
CPT/HCPCS: 80048; 80076; 85025; 96374; 99283; J2270; J2550; J7030

== ENCOUNTER 2019-11-11 21:57 | Emergency (ER) | payer MEDICARE ==
[~2019-11-11] VITALS: Ht 185.4 cm; Wt 83.0 kg
--- OUTSIDE RECORDS SUMMARY | 2019-11-11 22:34 | XMS REPORT | Clinical Summary ---
Author Author DEMARIO [facility] Address Unknown Phone Unavailable Care Team Providers Care Choir Director Name Role Phone Pcp, No PCP Unavailable [...] (HCC); Cannabinoid hyperemesis syndrome (HCC); Hypokalemia 12/13/2018 [facility] Internal Nj dicine - Encounter 12/14/2018 12/13/2018 Travel after 11/10/2018 Family History Medical History Relation Name Comments [...] METER Routine 12/13/2018 12:25 PM CDT after 11/10/2018 Results * EKG-SCANNED (12/16/2018 9:02 AM CDT) Narrative Performed At This result has an attachment that is n ot available. * POC-Glucose meter (12/14/2018 5:15 PM CDT) Only the most recent of 6 results within the time period is included. POC-Glucose Meter 266 (H)Comment: TESTED AT 70 - 110 mg/dL C HI [facility] BSC [address] [facility] [address] Specimen Blood Performing Organization Address City/State/Zipcode Ph one Number [facility] [place] [place] [phone] [place], [place] [address] [facility] * ECG 12 lead (12/14/2018 10:08 AM CDT) Specimen Narrative Performed At Ventricular Rate 78 BPM GE [facility] Atrial Rate 78 BPM P-R Interval 168 ms QRS Duration 80 ms Q-T Interval 350 ms QTC Calculation(Bazett) 399 ms P [place] 52 degrees R [place] -14 degrees T [place] 35 degrees Normal sinus rhythm Normal ECG No previous ECGs available Confirmed by MD MEGGAN, MARCELINO ([id number] ) on 12/14/2018 2:27:24 PM Procedure Note Interface, External Ris In - 12/14/2018 2:27 PM CDT Ventricular Rate 78 BPM Atrial Rate 78 BPM P-R Interval 168 ms QRS Duration 80 ms Q-T Interval 350 ms QTC Calculation(Bazett) 399 ms P [place] 52 degrees R [place] -14 degrees T [place] 35 degrees Normal sinus rhythm Normal ECG No previous ECGs available Confirmed by MD MEGGAN, MARCELINO ([id number]) on 12/14/2018 2:27:24 PM Performing Organization Address City/State/Zipcode Ph one Number GE MUSE * CBC with platelet count + automated diff (12/14/2018 4:58 AM CDT) Only the most recent of 2 results within the time period is included. WBC 7.5 3.5 - 10.5 K/L [facility] RBC 3.38 (L) 4.63 - 6.08 M/L [facility] Hemoglobin 9.8 (L) 13.7 - 17.5 GM/DL [facility] Hematocrit 31.1 (L) 40.1 - 51.0 % [facility] MCV 92.0 79.0 - 92.2 fL [facility] MCH 29.0 25.7 - 32.2 pg [facility] MCHC 31.5 (L) 32.3 - 36.5 GM/DL [facility] RDW 14.1 11.6 - 14.4 % [facility] Platelets 208Comment: Discordant PLT 150 - 450 K/CU MM [facility] results compared to previous [facility] results; clinical correlation required. MPV 10.4 9.4 - 12.4 fL [facility] nRBC 0 0 - 0 /100 WBC [facility] % Neutros 66 % [facility] % Lymphs 20 % [facility] % Monos 12 % [facility] % Eos 1 % [facility] % Baso 1 % [facility] # Neutros 4.92 1.78 - 5.38 K/L [facility] # Lymphs 1.46 1.32 - 3.57 K/L [facility] # Monos 0.92 (H) 0.30 - 0.82 K/L [facility] # Eos 0.10 0.04 - 0.54 K/L [facility] # Baso 0.07 0.01 - 0.08 K/L [facility] Immature 0 0 - 1 % [facility] Granulocytes-Relative [facility] Specimen Blood Performing Organization Address [facility] one Number [place] [phone] [place] [address] * Phosphorus (12/14/2018 4:58 AM CDT) Phosphorus 2.2 (L) 2.3 - 4.7 mg/dL [facility] Specimen Blood Performing Organization Address City/[facility] one Number [place] [phone] [place] [address] * Magnesium (12/14/2018 4:58 AM CDT) Magnesium 1.6 1.6 - 2.6 mg/dL [facility] Specimen Blood Performing Organization Address City/[facility] one Number [address] [facility] * Basic metabolic panel (12/14/2018 4:58 AM CDT) Only the most recent of 2 results within the time period is included. Sodium 139 136 - 145 meq/L [facility] Potassium 3.2 (L) 3.5 - 5.1 meq/L [facility] Chloride 105 98 - 107 meq/L [facility] CO2 28 22 - 29 meq/L [facility] BUN 11 7 - 21 mg/dL [facility] Creatinine 1.12 0.57 - 1.25 mg/dL [facility] Glucose 112 (H) 70 - 105 mg/dL [facility] Calcium 8.7 8.4 - 10.2 mg/dL [facility] EGFR 87Comment: ESTIMATED GFR IS mL/min/1.73 sq m [facility] NOT ACCURATE CREATININE [facility] CLEARANCE IN PREDICTING GLOMERULAR FILTRATION RATE. ESTIMATED GFR IS NOT APPLICABLE FOR DIALYSIS PATIENTS. Specimen Blood Performing Organization Address [facility] one [place] [address] [facility] * Hemoglobin A1c (12/13/2018 3:38 PM CDT) Hemoglobin A1C 8.4 (H) 4.3 - 6.1 % [facility] Specimen Blood Performing Organization Address City/[facility] one Number [place] [address] [facility] * Hepatic function panel (12/13/2018 3:38 PM CDT) Protein, Total 6.9 6.0 - 8.3 gm/dL [facility] Albumin 3.9 3.5 - 5.0 g/dL [facility] Total Bilirubin 0.5 0.2 - 1.2 mg/dL [facility] Bilirubin, Direct 0.2 0.1 - 0.5 mg/dL [facility] Alkaline Phosphatase 80 40 - 150 U/L [facility] AST 18 5 - 34 U/L [facility] ALT 15 6 - 55 U/L [facility] Specimen Blood Performing Organization Address [facility] Ph one Number [address] [facility] * Lipid panel (12/13/2018 3:38 PM CDT) Triglycerides 101 mg/dL [facility] Cholesterol 151 mg/dL [facility] HDL 38 mg/dL [facility] LDL Calculated 93 mg/dL [facility] Specimen Blood Narrative Performed At Triglyceride Reference Range: [facility] Low Risk <150 [facility] [id number] High Risk 200-499 Very High Risk>=500 Cholesterol Reference Range: Low Risk <200 [id number] High Risk>240 HDL Cholesterol Reference Range: Low Risk >=60 High Risk <40 LDL Cholesterol Reference Range: Optimal<100 Near [id number] Very High >=190 Performing Organization Address City/[facility] Ph one Number [address] [facility] after 11/10/2018 Insurance Payer Benefit Subscriber ID Type Phone Address Plan / Group MEDICARE MEDICARE A xxxxxxxxxxx Medicare B [id number] Advance Directives For more information, please contact: [address] [address] Date Inactivated Comments Code Status Date Activated 12/15/2018 12:01 AM Full Code 12/13/2018 10:07 AM This code status was determined by: Patient
--- OUTSIDE RECORDS SUMMARY | 2019-11-11 22:38 | XMS REPORT | Continuity of Care Document ---
Author Author [facility] t Organization [facility] Address [address] [place] [address] [address] [place] [address] Phone Unavailable Care Team Providers Care Consumer Affairs Manager Name Role Phone Chao BECKMAN PCP ISACC JAVED Attphys Unavailable STACIE FALLON, JEANNIE Attphys Unavailable Keeley CARTER Attphys Unavailable NEIL PEREZ Attphys Unavailable Dasia GIBSON, Zaina Attphys Rosa FALLON, Jyoti Sharon Attphys [phone] Rigo Mott MD Attphys [phone] ROSA MURALINATH SHARON Attphys Unavailable TAVIA GARCIA Attphys Unavailable ISACC JAVED Admphys Unavailable DAKeeley DOUGLAS Admphys Unavailable ROSA, MURALINATH SHARON Admphys Unavailable Payers Payer Name Policy Type Policy Number Effective Date Expiration Date Keeley cagle Medicare A & B [id number] 2016 00:00:00 [facility] Cdc Review Covid19 [id number] [facility] MEDICAREMEDICARE A BxxxxxxxxxxxMedicare xxxxxxxxxxx [facility] Problems Condition Name Condition Details Condition Category Status Onset Date Resolution Date Last Treatment Date Treating Clinician Comments Source Gastroparesis Gastroparesis Disease Active 2018-12-13 00:00:00 [facility] Diabetic gastroparesis associated with type 2 diabetes mellitus Diabetic gastroparesis associated with type 2 diabetes mellitus Problem Active [facility] Upper gastrointestinal hemorrhage Upper GI bleed Problem Active [facility] Dehydration Dehydration Problem Active [facility] Nausea and vomiting Nausea & vomiting Problem Active [facility] Hematemesis Problem Active [facility] Acute epigastric pain Problem Active [facility] Abdominal pain Problem Active [facility] Vomiting Problem Active [facility] Tachycardia Problem Active [facility] Hyperglycemia Problem Active [facility] Colitis Problem Active [facility] Intractable vomiting with nausea Problem Active [facility] Abnormal kidney function Problem Active [facility] Hypertensive crisis Problem Active [facility] Allergies, Adverse Reactions, Alerts Allergy Name Allergy Type Status Severity Reaction(s) Onset Date Inacti ve Date Treating Clinician Comments Source No Known Allergies DA Active U 2019-02-13 00:00:00 [facility] No Known Allergies DA Active U 2019-02-06 00:00:00 [facility] No Known Allergies DA Active U 2018-05-11 00:00:00 [facility] No Known Allergies DA Active U 2018-02-26 00:00:00 [facility] No Known Allergies DA Active U 2018-01-14 00:00:00 [facility] No Known Allergies DA Active U 2017-12-15 00:00:00 [facility] No Known Allergies DA Active U 2017-10-09 00:00:00 [facility] Family History Family Member Diagnosis Comments Start Date Stop Date Source Maternal uncle Diabetes [facility] Natural mother Diabetes [facility] Social History Social Habit Start Date Stop Date Quantity Comments Source History SDOH Alcohol Std Drinks [facility] History SDOH Alcohol Binge [facility] Sex Assigned At [facility] History SDOH Alcohol Frequency 2018-12-13 00:00:00 2018-12-13 00:00:0 0 1 [facility] Smoking Status Start Date Stop Date Source Never smoker [facility] Medications Ordered Medication Name Filled Medication Name Start Date Stop Da te Current Medication? Ordering Clinician Indication Dosage Frequency Signature (SIG) Comments Components Source Acetaminophen With Codeine (Tylenol With Codeine #3 Ta blet) 1 Each TABLET Acetaminophen With Codeine (Tylenol With Codeine #3 Tablet) 1 Each TABLET 2019-10-28 10:59:00 Yes 300 Every 12 Jessenia rs as needed for Abdominal Pain [facility] Promethazine Hcl Promethazine Hcl 2019-09-21 09:25:00 Yes 25 Every 6 Hours for Vomiting [facility] Losartan Potassium Losartan Potassium 2019-08-25 13:46:00 2019-08-30 5 00:00:00 No 50 Daily [facility] Acetaminophen With Codeine (Tylenol With Codeine #3 Ta blet) 1 Each TABLET Acetaminophen With Codeine (Tylenol With Codeine #3 Tablet) 1 Each TABLET 2019-07-10 18:44:00 2019-09-22 00:00:00 No 300 Every 6 Hours as needed for Pain [facility] Promethazine Hcl Promethazine Hcl 2019-07-06 13:42:00 2019-07-10 00:00 :00 No 25 Three Times A Day [facility] promethazine (PHENERGAN) 12.5 MG tablet 00:00:00 2018-12-21 23:59:00 No 12.5mg Take 1 tablet (12.5 mg total) by mouth every 6 (six) hours as needed for Nausea for up to 7 days. [facility] insulin glargine (LANTUS) 100 unit/mL injection 2018-12-13 1 7:58:14 Yes type 2 diabetes mellitus 25U QD Inject 25 Units subcutaneously nightly Use as directed . [facility] dicyclomine (BENTYL) 10 MG capsule 2018-12-13 17:58:14 Y es 10mg Q.[id number] Take 10 mg by mouth 3 (three) times daily. 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 [facility] pantoprazole (PROTONIX) 20 MG tablet 2018-12-13 17:58:14 Ye s 20mg Take 20 mg by mouth 2 (two) times daily before meals. [facility] traMADol (ULTRAM) 50 mg tablet 2018-12-13 17:58:14 Yes 50mg Q.[id number] Take 50 mg by mouth 3 (three) times daily. [facility] insulin aspart U-100 (NOVOLOG) 100 unit/mL injection 2 17:58:13 Yes type 2 diabetes mellitus 5U Inj ect 5 Units subcutaneously 3 (three) times daily before meals. [facility] Ondansetron (Ondansetron Odt) 8 Mg TAB.RAPDIS Ondanset calli (Ondansetron Odt) 8 Mg TAB.RAPDIS 2018-12-12 19:01:00 2019-07-10 00:00:00 No 4 Three Times A Day as needed for Nausea, Vomiting [facility] Promethazine Hcl (Phenergan Supp*) 25 Mg SUPP Prometha zine Hcl (Phenergan Supp*) 25 Mg SUPP 2018-12-12 19:01:00 2019-07-10 00:00:00 No 25 Three Times A Day as needed for Nausea, Vomiting [facility] Metoclopramide Hcl (Reglan) 10 Mg TABLET Metoclopramid e Hcl (Reglan) 10 Mg TABLET 2018-11-25 06:19:00 Yes 1 Before Meals And At Bedtime [facility] Pantoprazole Sodium (Protonix) 40 Mg TABLET. Pantopr azole Sodium (Protonix) 40 Mg TABLET. 2018-11-25 06:19:00 Yes 40 Daily [facility] Amlodipine Besylate (Norvasc) 10 Mg TAB Amlodipine Besylate (Norvasc) 10 Mg TAB 2018-11-25 06:19:00 2019-07-09 00:00:00 No 10 Daily [facility] Insulin Aspart (Novolog) 100 Units/1 Ml INJ Insulin As part (Novolog) 100 Units/1 Ml INJ Yes 8 Three Times Daily With Meals [facility] Insulin Glargine (Lantus 3ML Pen) 100 Units/1 Ml INJ I nsulin Glargine (Lantus 3ML Pen) 100 Units/1 Ml INJ Yes 15 Bedtime [facility] Lisinopril Lisinopril Yes 5 Daily [facility] Ondansetron Hcl Ondansetron Hcl Yes 4 Every 6 Hours as needed for Nausea [facility] Dicyclomine Hcl Dicyclomine Hcl 2019-07-10 00:00:00 No 10 Three Times A Day [facility] Promethazine Hcl Promethazine Hcl 2019-07-10 00:00:00 No 25 Three Times A Day as needed for Nausea [facility] Tramadol Hcl (Ultram 50MG*) 50 Mg TAB Tramadol Hcl (Ultram 50MG* ) 50 Mg TAB 2019-07-10 00:00:00 No 1 Three Times A Day as needed for Mild Pain (1-3) Or Fever>100.8 [facility] Glimepiride Glimepiride 2019-07-09 00:00:00 No 2 D aily [facility] Metoclopramide Hcl (Reglan) 10 Mg TABLET Metoclopramid e Hcl (Reglan) 10 Mg TABLET 2018-11-25 00:00:00 No 1 Bedtime [facility] Metoclopramide Hcl Metoclopramide Hcl 2018-11-25 00:00:00 No 10 Three Times A Day [facility] Metoclopramide Hcl (Reglan) 10 Mg TABLET Metoclopramid e Hcl (Reglan) 10 Mg TABLET 2018-11-25 00:00:00 No 1 Three Times A Day [facility] Pantoprazole Sodium (Protonix) 40 Mg TABLET. Pantopr azole Sodium (Protonix) 40 Mg TABLET. 2018-11-25 00:00:00 No 40 Daily [facility] Pantoprazole Sodium (Protonix) 40 Mg TABLET. Pantopr azole Sodium (Protonix) 40 Mg TABLET. 2018-11-25 00:00:00 No 40 Twice A Day [facility] Vital Signs Vital Name Observation Time Observation Value Comments Source Weight 2019-11-07 16:35:00 183 [lb_av] [facility] BMI (Body Mass Index) 2019-11-07 16:35:00 24.1 kg/m2 [facility] Body Temperature 2019-10-28 16:21:00 98.1 [degF] [facility] Weight 2019-10-27 17:29:00 184 [lb_av] [facility] BMI (Body Mass Index) 2019-10-27 17:29:00 24.3 kg/m2 [facility] Body Temperature 2019-10-06 11:55:00 98.0 [degF] [facility] BMI (Body Mass Index) 2019-10-06 00:13:00 25.7 kg/m2 [facility] Weight 2019-10-03 16:16:00 195 [lb_av] [facility] Weight 2019-09-30 07:59:00 195 [lb_av] [facility] BMI (Body Mass Index) 2019-09-30 07:59:00 25.7 kg/m2 [facility] Body Temperature 2019-09-29 23:05:00 99.3 [degF] [facility] Weight 2019-09-29 20:31:00 195 [lb_av] [facility] BMI (Body Mass Index) 2019-09-29 20:31:00 25.7 kg/m2 [facility] Body Temperature 2019-09-24 07:56:00 97.9 [degF] [facility] BMI (Body Mass Index) 2019-09-24 00:04:00 25.7 kg/m2 [facility] Weight 2019-09-22 07:12:00 195 [lb_av] [facility] Weight 2019-09-21 07:05:00 193 [lb_av] [facility] BMI (Body Mass Index) 2019-09-21 07:05:00 25.5 kg/m2 [facility] Body Temperature 2019-09-20 23:35:00 97.7 [degF] [facility] Weight 2019-09-20 21:36:00 193 [lb_av] [facility] BMI (Body Mass Index) 2019-09-20 21:36:00 25.5 kg/m2 [facility] Weight 2019-08-23 17:53:00 195 [lb_av] [facility] BMI (Body Mass Index) 2019-08-23 17:53:00 25.7 kg/m2 [facility] Body Temperature 2019-07-24 12:23:00 97.6 [degF] [facility] Systolic blood pressure 2018-12-14 15:44:00 160 mm[Hg] [facility] Diastolic blood pressure 2018-12-14 15:44:00 82 mm[Hg] [facility] Heart rate 2018-12-14 15:44:00 69 /min [facility] Body temperature 2018-12-14 15:44:00 37.44 Sarai [facility] Respiratory rate 2018-12-14 15:44:00 18 /min [facility] Oxygen saturation in Arterial blood by Pulse oximetry 12-14 15:44:00 97 /min [facility] [place] Body weight Measured 2018-12-13 10:20:00 86.274 kg [facility] Procedures Procedure Date / Time Performed Performing Clinician [facility] EXCISION OF DUODENUM, ENDO, DIAGN 2019-10-05 00:00:00 [facility] EXCISION OF STOMACH, PYLORUS, ENDO, DIAGN 2019-10-05 00:00:00 [facility] Computed tomography of abdomen and pelvis with contrast 00:00:00 [facility] Computed tomography of abdomen and pelvis with contrast 00:00:00 [facility] EMERGENCY DEPT VISIT 2019-09-21 00:00:00 [facility] EMERGENCY DEPT VISIT 2019-09-20 00:00:00 [facility] REPORT OF PROCEDURE - ENDOSCOPY SCAN 2018-12-16 09:02:06 Pro vider, Default Scanning [facility] POCT-GLUCOSE METER 2018-12-14 17:15:00 Shant Mott [facility] POCT-GLUCOSE METER 2018-12-14 12:04:00 Shant Mott [facility] ECG 12-LEAD 2018-12-14 10:08:16 Shant Mott [facility] POCT-GLUCOSE METER 2018-12-14 07:43:00 Shant Mott [facility] BASIC METABOLIC PANEL (7) 2018-12-14 04:58:00 Gadicherla, Sharon Muralinath [facility] PHOSPHORUS 2018-12-14 04:58:00 Gadicherla, Sharon Muralinath [facility] MAGNESIUM 2018-12-14 04:58:00 Gadicherla, Sharon Muralinath [facility] CBC W/PLT COUNT & AUTO DIFFERENTIAL 2018-12-14 04:58:00 Jared cherla, Sharon Muralinath [facility] POCT-GLUCOSE METER 2018-12-13 21:09:00 Gadicherla, Sharon Muralin ath [facility] POCT-GLUCOSE METER 2018-12-13 15:54:00 Gadicherla, Sharon Muralin ath [facility] BASIC METABOLIC PANEL (7) 2018-12-13 15:38:00 Sharon Lee [facility] HEPATIC FUNCTION PANEL 2018-12-13 15:38:00 Sharon Lee [facility] HEMOGLOBIN A1C 2018-12-13 15:38:00 Sharon Lee [facility] LIPID PANEL 2018-12-13 15:38:00 Sharon Lee [facility] CBC W/PLT COUNT & AUTO DIFFERENTIAL 2018-12-13 15:38:00 Sharon Mason [facility] POCT-GLUCOSE METER 2018-12-13 12:25:00 Sharon Lee [facility] Plan of Care Planned Activity Planned Date Details Comments Source Instructions Abdominal [facility] - [facility] Instructions Vomiting - Adult [facility] Encounters Start Date/Time End Date/Time Encounter Type Admission Type Attendi [facility] Care Department Encounter ID Source 2019-11-07 16:24:00 2019-11-07 19:30:00 Departed Emergency Room [facility] [id number] [facility] Patients [facility] 2019-10-27 14:43:00 2019-10-28 17:55:00 Discharged Inpatient [facility] [id number] [facility] 2019-10-04 00:35:00 2019-10-06 12:14:00 Discharged Inpatient 1 ISACC JAVED [facility] [id number] [facility] 2019-09-30 08:15:00 2019-09-30 14:10:00 Departed Emergency Room 1 JEANNIE QUINONES MD [facility] [id number] JENNYFER [facility] 2019-09-29 20:40:00 2019-09-29 23:05:00 Departed Emergency [facility] [id number] [facility] [place] 2019-09-22 09:41:00 2019-09-24 08:22:00 Discharged Inpatient 1 RUSLAN CARTER [facility] [id number] [facility] [place] 2019-09-21 07:02:00 2019-09-21 11:05:00 Departed Emergency Room [facility] [id number] [facility] 2019-09-20 20:47:00 2019-09-20 23:35:00 Departed Emergency Room [facility] [id number] [facility] 2019-08-24 08:10:00 2019-08-25 14:00:00 Discharged Inpatient (obs) [facility] [id number] [facility] 2019-08-23 17:24:00 2019-08-23 19:35:00 Departed Emergency Room [facility] [id number] [facility] 2019-07-23 06:38:00 2019-07-24 13:59:00 Discharged Inpatient 1 NEIL PEREZ [facility] [id number] [facility] 2019-07-09 15:58:00 2019-07-10 18:57:00 Discharged Inpatient (obs) [facility] [id number] [facility] [place] 2019-07-06 11:09:00 2019-07-06 14:11:00 Departed Emergency Room [facility] [id number] [facility] 2019-05-31 00:00:00 2019-05-31 00:00:00 Transition of Care Zaina Fomran [id number] 2018-12-13 06:33:00 2018-12-13 08:35:00 Departed Emergency Room [facility] [id number] [facility] 2018-12-12 17:07:00 2018-12-12 19:35:00 Departed Emergency Room [facility] [id number] [facility] 2018-11-22 18:24:00 2018-11-25 16:05:00 Discharged Inpatient 1 ISACC JAVED [facility] [id number] [facility] 2018-09-28 12:15:00 2018-09-28 16:32:00 Departed Emergency Room [facility] [id number] [facility] 2018-09-20 08:55:00 2018-09-20 08:55:00 Registered Clinic 3 TAVIA GARCIA [facility] [id number] [facility] 2018-08-10 13:35:00 2018-08-10 17:00:00 Departed Emergency Room [facility] [id number] [facility] 2018-07-05 11:53:00 2018-07-07 08:40:00 Discharged Inpatient [facility] [id number] [facility] 2018-06-23 07:38:00 2018-06-23 07:38:00 Registered Clinic 3 TAVIA GARCIA [facility] [id number] [facility] Results Test Description Test Time Test Comments Results Result Comments Source Capillary blood glucose measurement by glucometer (mas s/volume) 2019-10-28 15:46:00 Test Item Bedside Glucose (test code = 17080-3) 62 70-120 Meter ID: [id number] Park Regional Medical CenterCapillary blood glucose measurement by glucometer (mass/volume)2019-10-28 15:46:00* Test Item Value Reference Range Interpretation Comments Bedside Glucose (test code = 86868-4) 62 70-120 Meter ID: [id number] or plasma sodium measurement (moles/volume)2019-10-28 04:50:00* Test Item Value Reference Range Interpretation Comments Sodium Level (test code = 2951-2) 141 136-145 [facility] or plasma potassium measurement (moles/volume)2019-10-28 04:50:00* Test Item Value Reference Range Interpretation Comments Potassium Level (test code = 2823-3) 3.7 3.5-5.1 [facility] or plasma chloride measurement (moles/volume)2019-10-28 04:50:00* Test Item Value Reference Range Interpretation Comments Chloride Level (test code = 2075-0) 106 98-107 [facility] or plasma carbon dioxide, total measurement (moles/volume)2019-10-28 04:50:00* Test Item Value Reference Range Interpretation Comments Carbon Dioxide Level (test code = 2028-9) 24 22-29 [facility] or plasma anion [id number] 04:50:00* Test Item Value Reference Range Interpretation Comments Anion Gap (test code = 97442-4) 14.7 8-16 [facility] or plasma urea nitrogen measurement (mass/volume)2019-10-28 04:50:00* Test Item Value Reference Range Interpretation Comments Blood Urea Nitrogen (test code = 3094-0) 17 7-26 [facility] or plasma creatinine measurement (mass/volume)2019-10-28 04:50:00* Test Item Value Reference Range Interpretation Comments Creatinine (test code = 2160-0) 1.15 0.72-1.25 [facility] or plasma urea nitrogen/creatinine mass [id number] 04:50:00* Test Item Value Reference Range Interpretation Comments BUN/Creatinine Ratio (test code = 3097-3) 15 6-25 [facility] Center[facility] glomerular filtration rate (GFR) [id number] 04:50:00* Test Item Value Reference Range Interpretation Comments Estimat Glomerular Filtration Rate (test code = 187641773) > 60 >60 Ranges were taken from the National Kidney Disease Education Program and the [facility] literature.Reference ranges:60 or greater: Wpphmr30-10 ( for 3 consecutive months): Chronic kidney disease 15 or less: Kidney failureCedar Park Regional Medical CenterGlucose [id number] 04:50:00* Test Item Value Reference Range Interpretation Comments Glucose Level (test code = IIR9568) 246 74-118 [facility] or plasma calcium measurement (mass/volume)2019-10-28 04:50:00* Test Item Value Reference Range Interpretation Comments Calcium Level (test code = 79273-2) 8.4 8.4-10.2 [facility] CenterFluoroscopic procedure less than one hour [id number] 04:50:00* Test Item Value Reference Range Interpretation Comments Hemoglobin A1c Percent (test code = Hemoglobin A1c Percent) 9.9 4.0-7.0 [facility] or plasma lipase measurement (enzymatic activity/volume)2019-10-28 04:50:00* Test Item Value Reference Range Interpretation Comments Lipase (test code = 3040-3) < 4 8-78 [facility] or plasma sodium measurement (moles/volume)2019-10-28 04:50:00* Test Item Value Reference Range Interpretation Comments Sodium Level (test code = 2951-2) 141 136-145 [facility] or plasma potassium measurement (moles/volume)2019-10-28 04:50:00* Test Item Value Reference Range Interpretation Comments Potassium Level (test code = 2823-3) 3.7 3.5-5.1 [facility] or plasma chloride measurement (moles/volume)2019-10-28 04:50:00* Test Item Value Reference Range Interpretation Comments Chloride Level (test code = 2075-0) 106 98-107 [facility] or plasma carbon dioxide, total measurement (moles/volume)2019-10-28 04:50:00* Test Item Value Reference Range Interpretation Comments Carbon Dioxide Level (test code = 2028-9) 24 22-29 [facility] or plasma anion [id number] 04:50:00* Test Item Value Reference Range Interpretation Comments Anion Gap (test code = 72914-9) 14.7 8-16 [facility] or plasma urea nitrogen measurement (mass/volume)2019-10-28 04:50:00* Test Item Value Reference Range Interpretation Comments Blood Urea Nitrogen (test code = 3094-0) 17 7-26 [facility] or plasma creatinine measurement (mass/volume)2019-10-28 04:50:00* Test Item Value Reference Range Interpretation Comments Creatinine (test code = 2160-0) 1.15 0.72-1.25 [facility] or plasma urea nitrogen/creatinine mass [id number] 04:50:00* Test Item Value Reference Range Interpretation Comments BUN/Creatinine Ratio (test code = 3097-3) 15 6-25 [facility] CenterEstimated glomerular filtration rate (GFR) [id number] 04:50:00* Test Item Value Reference Range Interpretation Comments Estimat Glomerular Filtration Rate (test code = 366187450) > 60 >60 Ranges were taken from the National Kidney Disease Education Program and the [facility] Foundation literature.Reference ranges:60 or greater: Jpvwpe83-61 ( for 3 consecutive months): Chronic kidney disease 15 or less: Kidney failureCedar Park Regional Medical CenterGlucose ygvgnxljaqg1852-51-65 04:50:00* Test Item Value Reference Range Interpretation Comments Glucose Level (test code = DMB6961) 246 74-118 [facility]ererum or plasma calcium measurement (mass/volume)2019-10-28 04:50:00* Test Item Value Reference Range Interpretation Comments Calcium Level (test code = 50398-6) 8.4 8.4-10.2 [facility] CenterFluoroscopic procedure less than one hour gssmhnbh8266-83-54 04:50:00* Test Item Value Reference Range Interpretation Comments Hemoglobin A1c Percent (test code = Hemoglobin A1c Percent) 9.9 4.0-7.0 [facility]ererum or plasma lipase measurement (enzymatic activity/volume)2019-10-28 04:50:00* Test Item Value Reference Range Interpretation Comments Lipase (test code = 3040-3) < 4 8-78 [facility] CenterFluoroscopic procedure less than one hour makzujvx7208-64-99 15:40:00* Test Item Value Reference Range Interpretation Comments Coronavirus (PCR) (test code = Coronavirus (PCR)) NOT DETECTED NOTD ETECTED [employer] SARS-CoV-2 assay is a nucleic amplification test intended for the qualitative detection of RNA from SARS-CoV-2 from nasopharyngeal ([employer]) specimens . It is used under Emergency Use Authorization (EUA) by FDA.A positive result is indicative of the presence of SARS-CoV-2 RNA. Clinical correlation with patient history and other diagnostic information is necessary to determine patient infe ction status.A negative (Not Detected) result does not preclude SARS-CoV-2 infec tion. Clinical Correlation with patient history and other diagnostic information should be used in patient management decisions.Invalid: Unable to generate a va lid result on this specimen. Please submit a new specimen for reprat testing oc clinically indicated.Tesing performed by:[facility] [address] [place] [address] [id number], Misael Mead MD, PhD [facility] CenterBlood leukocytes automated count (number/volume)2019-10-27 13:50:00* Test Item Value Reference Range Interpretation Comments White Blood Count (test code = 6690-2) 7.16 4.8-10.8 [facility] CenterBlsleepy [facility] erythrocytes automated count (number/volume)2019-10-27 13:50:00* Test Item Value Reference Range Interpretation Comments Red Blood Count (test code = 789-8) 3.97 4.3-5.7 [facility] CenterBlood hemoglobin measurement (moles/volume)2019-10-27 13:50:00* Test Item Value Reference Range Interpretation Comments Hemoglobin (test code = 89419-5) 11.2 14.0-18.0 [facility] CenterAutomated blood hematocrit (volume fraction)2019-10-27 13:50:00* Test Item Value Reference Range Interpretation Comments Hematocrit (test code = 4544-3) 35.7 38.2-49.6 [facility] CenterAutomated erythrocyte mean corpuscular mbcwuk8906-65-72 13:50:00* Test Item Value Reference Range Interpretation Comments Mean Corpuscular Volume (test code = 787-2) 89.9 81-99 [facility] CenterAutomated erythrocyte mean corpuscular hemoglobin (mass per erythrocyte)2019-10-27 13:50:00* Test Item Value Reference Range Interpretation Comments Mean Corpuscular Hemoglobin (test code = 785-6) 28.2 28-32 [facility] CenterAutomated erythrocyte mean corpuscular hemoglobin concentration measurement (mass/volume)2019-10-27 13:50:00* Test Item Value Reference Range Interpretation Comments Mean Corpuscular Hemoglobin Concent (test code = 786-4) 31.4 31-35 [facility] CenterRDW NbwFc-Brd3931-55-30 13:50:00* Test Item Value Reference Range Interpretation Comments Red Cell Distribution Width (test code = 65733-0) 13.1 11.7 -14.4 [facility] CenterAutomated blood platelet count (count/volume)2019-10-27 13:50:00* Test Item Value Reference Range Interpretation Comments Platelet Count (test code = 777-3) 226 140-360 [facility] CenterAutomated blood segmented neutrophil count as percentage of total dswboefzyj9215-65-18 13:50:00* Test Item Value Reference Range Interpretation Comments Neutrophils (%) (Auto) (test code = 87986-1) 85.1 38.7-80.0 [facility] CenterAutomated blood lymphocyte count as percentage ot total vvauxutads8200-59-19 13:50:00* Test Item Value Reference Range Interpretation Comments Lymphocytes (%) (Auto) (test code = 736-9) 10.3 18.0-39.1 [facility] CenterAutomated blood monocyte count as percentage of total kbucwiljdg7205-14-05 13:50:00* Test Item Value Reference Range Interpretation Comments Monocytes (%) (Auto) (test code = 5905-5) 3.5 4.4-11.3 [facility] CenterAutomated blood eosinophil count as percentage of total byxreupgiu3652-91-09 13:50:00* Test Item Value Reference Range Interpretation Comments Eosinophils (%) (Auto) (test code = 713-8) 0.1 0.0-6.0 [facility] CenterAutomated blood basophil count as percentage of total flnppjbsbs6639-69-80 13:50:00* Test Item Value Reference Range Interpretation Comments Basophils (%) (Auto) (test code = 706-2) 0.7 0.0-1.0 [facility] CenterFluoroscopic procedure less than one hour aqskbjxj4440-31-03 13:50:00* Test Item Value Reference Range Interpretation Comments IM GRANULOCYTES % (test code = IM GRANULOCYTES %) 0.3 0.0- 1.0 [facility] CenterAutomated blood neutrophil count 2019-10-27 13:50:00* Test Item Value Reference Range Interpretation Comments Neutrophils # (Auto) (test code = 751-8) 6.1 2.1-6.9 [facility] CenterBlood lymphocytes count (number/volume) 2019-10-27 13:50:00* Test Item Value Reference Range Interpretation Comments Lymphocytes # (Auto) (test code = 18474-1) 0.7 1.0-3.2 [facility] CenterBlood monocytes automated count (number/volume)2019-10-27 13:50:00* Test Item Value Reference Range Interpretation Comments Monocytes # (Auto) (test code = 742-7) 0.3 0.2-0.8 [facility] CenterAutomated blood eosinophil count 2019-10-27 13:50:00* Test Item Value Reference Range Interpretation Comments Eosinophils # (Auto) (test code = 711-2) 0.0 0.0-0.4 [facility] CenterAutomated blood basophil count (count/volume)2019-10-27 13:50:00* Test Item Value Reference Range Interpretation Comments Basophils # (Auto) (test code = 704-7) 0.1 0.0-0.1 [facility] CenterFluoroscopic procedure less than one hour wgfnzxmf0449-04-27 13:50:00* Test Item Value Reference Range Interpretation Comments Absolute Immature Granulocyte (auto (zeenat t code = Absolute Immature Granulocyte (auto) 0.02 0-0.1 [facility] CenterBlsleepy eye medical center leukocytes automated count (number/volume)2019-10-27 13:50:00* Test Item Value Reference Range Interpretation Comments White Blood Count (test code = 6690-2) 7.16 4.8-10.8 [facility] CenterBlood erythrocytes automated count (number/volume)2019-10-27 13:50:00* Test Item Value Reference Range Interpretation Comments Red Blood Count (test code = 789-8) 3.97 4.3-5.7 [facility]ood hemoglobin [facility] (moles/volume)2019-10-27 13:50:00* Test Item Value Reference Range Interpretation Comments Hemoglobin (test code = 39334-9) 11.2 14.0-18.0 [facility] CenterAutomated blood hematocrit (volume fraction)2019-10-27 13:50:00* Test Item Value Reference Range Interpretation Comments Hematocrit (test code = 4544-3) 35.7 38.2-49.6 [facility] CenterAutomated erythrocyte mean corpuscular htdsqn3148-35-39 13:50:00* Test Item Value Reference Range Interpretation Comments Mean Corpuscular Volume (test code = 787-2) 89.9 81-99 [facility] CenterAutomated erythrocyte mean corpuscular hemoglobin (mass per erythrocyte)2019-10-27 13:50:00* Test Item Value Reference Range Interpretation Comments Mean Corpuscular Hemoglobin (test code = 785-6) 28.2 28-32 [facility] CenterAutomated erythrocyte mean corpuscular hemoglobin concentration measurement (mass/volume)2019-10-27 13:50:00* Test Item Value Reference Range Interpretation Comments Mean Corpuscular Hemoglobin Concent (test code = 786-4) 31.4 31-35 [facility] CenterRDW FzdYd-Ogm8554-75-30 13:50:00* Test Item Value Reference Range Interpretation Comments Red Cell Distribution Width (test code = 76954-0) 13.1 11.7 -14.4 [facility] CenterAutomated blood platelet count (count/volume)2019-10-27 13:50:00* Test Item Value Reference Range Interpretation Comments Platelet Count (test code = 777-3) 226 140-360 [facility] CenterAutomated blood segmented neutrophil count as percentage of total tvxvhvewtw9238-82-56 13:50:00* Test Item Value Reference Range Interpretation Comments Neutrophils (%) (Auto) (test code = 85498-4) 85.1 38.7-80.0 [facility] CenterAutomated blood lymphocyte count as percentage ot total tnhhmnxdcy4601-66-24 13:50:00* Test Item Value Reference Range Interpretation Comments Lymphocytes (%) (Auto) (test code = 736-9) 10.3 18.0-39.1 [facility] CenterAutomated blood monocyte count as percentage of total kmuhffbolz1892-14-29 13:50:00* Test Item Value Reference Range Interpretation Comments Monocytes (%) (Auto) (test code = 5905-5) 3.5 4.4-11.3 [facility] CenterAutomated blood eosinophil count as percentage of total zrrxllhzyl7772-28-86 13:50:00* Test Item Value Reference Range Interpretation Comments Eosinophils (%) (Auto) (test code = 713-8) 0.1 0.0-6.0 [facility] CenterAutomated blood basophil count as percentage of total pleqhcpfzd3165-19-68 13:50:00* Test Item Value Reference Range Interpretation Comments Basophils (%) (Auto) (test code = 706-2) 0.7 0.0-1.0 [facility] CenterFluoroscopic procedure less than one hour sdcwaajt0513-88-78 13:50:00* Test Item Value Reference Range Interpretation Comments IM GRANULOCYTES % (test code = IM GRANULOCYTES %) 0.3 0.0- 1.0 [facility] CenterAutomated blood neutrophil count 2019-10-27 13:50:00* Test Item Value Reference Range Interpretation Comments Neutrophils # (Auto) (test code = 751-8) 6.1 2.1-6.9 [facility] CenterBlood lymphocytes count (number/volume) 2019-10-27 13:50:00* Test Item Value Reference Range Interpretation Comments Lymphocytes # (Auto) (test code = 02355-6) 0.7 1.0-3.2 [facility] CenterBlood monocytes automated count (number/volume)2019-10-27 13:50:00* Test Item Value Reference Range Interpretation Comments Monocytes # (Auto) (test code = 742-7) 0.3 0.2-0.8 [facility] CenterAutomated blood eosinophil count 2019-10-27 13:50:00* Test Item Value Reference Range Interpretation Comments Eosinophils # (Auto) (test code = 711-2) 0.0 0.0-0.4 [facility] CenterAutat[facility]lotteed blood basophil count (count/volume)2019-10-27 13:50:00* Test Item Value Reference Range Interpretation Comments Basophils # (Auto) (test code = 704-7) 0.1 0.0-0.1 [facility] CenterFluoroscopic procedure less than one hour njbzgnjq7511-75-49 13:50:00* Test Item Value Reference Range Interpretation Comments Absolute Immature Granulocyte (auto (zeenat t code = Absolute Immature Granulocyte (auto) 0.02 0-0.1 [facility] leukocytes automated count (number/volume)2019-10-06 05:15:00* Test Item Value Reference Range Interpretation Comments White Blood Count (test code = 6690-2) 7.83 4.8-10.8 [facility] erythrocytes automated count (number/volume)2019-10-06 05:15:00* Test Item Value Reference Range Interpretation Comments Red Blood Count (test code = 789-8) 3.95 4.3-5.7 [facility] hemoglobin measurement (moles/volume)2019-10-06 05:15:00* Test Item Value Reference Range Interpretation Comments Hemoglobin (test code = 74457-6) 11.2 14.0-18.[address] [facility] CenterAutom[facility] blood hematocrit (volume fraction)2019-10-06 05:15:00* Test Item Value Reference Range Interpretation Comments Hematocrit (test code = 4544-3) 35.5 38.2-49.6 [facility] CenterAutomated erythrocyte mean corpuscular pmqcqz0013-60-67 05:15:00* Test Item Value Reference Range Interpretation Comments Mean Corpuscular Volume (test code = 787-2) 89.9 81-99 [facility] CenterAutomated erythrocyte mean corpuscular hemoglobin (mass per erythrocyte)2019-10-06 05:15:00* Test Item Value Reference Range Interpretation Comments Mean Corpuscular Hemoglobin (test code = 785-6) 28.4 28-32 [facility] CenterAutunc [facility] [place] erythrocyte mean corpuscular hemoglobin concentration measurement (mass/volume)2019-10-06 05:15:00* Test Item Value Reference Range Interpretation Comments Mean Corpuscular Hemoglobin Concent (test code = 786-4) 31.5 31-35 [facility] CenterRDW JvtOb-Yji6303-66-09 05:15:00* Test Item Value Reference Range Interpretation Comments Red Cell Distribution Width (test code = 93093-3) 13.4 11.7 -14.4 [facility] CenterAutatrium [facility]lotteed blood platelet count (count/volume)2019-10-06 05:15:00* Test Item Value Reference Range Interpretation Comments Platelet Count (test code = 777-3) 243 140-360 [facility] CenterAutatrium [facility]lotteed blood segmented neutrophil count as percentage of total whabitwpbq2566-33-25 05:15:00* Test Item Value Reference Range Interpretation Comments Neutrophils (%) (Auto) (test code = 29198-8) 57.1 38.7-80.0 [facility] CenterAutatrium health [facility]lotteed blood lymphocyte count as percentage ot total hgywzvqotg9624-39-18 05:15:00* Test Item Value Reference Range Interpretation Comments Lymphocytes (%) (Auto) (test code = 736-9) 31.9 18.0-39.1 [facility] CenterAutomated blood monocyte count as percentage of total trhintqdpn1263-79-76 05:15:00* Test Item Value Reference Range Interpretation Comments Monocytes (%) (Auto) (test code = 5905-5) 7.8 4.4-11.3 [facility] CenterAutomated blood eosinophil count as percentage of total qikewfjrmg3002-67-65 05:15:00* Test Item Value Reference Range Interpretation Comments Eosinophils (%) (Auto) (test code = 713-8) 2.2 0.0-6.0 [facility] CenterAutomated blood basophil count as percentage of total fgrjzuodrj3456-58-20 05:15:00* Test Item Value Reference Range Interpretation Comments Basophils (%) (Auto) (test code = 706-2) 0.9 0.0-1.0 [facility] CenterFluoroscopic procedure less than one hour cfahsfwx9971-03-27 05:15:00* Test Item Value Reference Range Interpretation Comments IM GRANULOCYTES % (test code = IM GRANULOCYTES %) 0.1 0.0- 1.0 [facility] CenterAutomated blood neutrophil count 2019-10-06 05:15:00* Test Item Value Reference Range Interpretation Comments Neutrophils # (Auto) (test code = 751-8) 4.5 2.1-6.9 [facility] CenterBlood lymphocytes count (number/volume) 2019-10-06 05:15:00* Test Item Value Reference Range Interpretation Comments Lymphocytes # (Auto) (test code = 70948-2) 2.5 1.0-3.2 [facility] CenterBlood monocytes automated count (number/volume)2019-10-06 05:15:00* Test Item Value Reference Range Interpretation Comments Monocytes # (Auto) (test code = 742-7) 0.6 0.2-0.8 [facility] CenterAutomated blood eosinophil count 2019-10-06 05:15:00* Test Item Value Reference Range Interpretation Comments Eosinophils # (Auto) (test code = 711-2) 0.2 0.0-0.4 [facility] CenterAutomated blood basophil count (count/volume)2019-10-06 05:15:00* Test Item Value Reference Range Interpretation Comments Basophils # (Auto) (test code = 704-7) 0.1 0.0-0.1 [facility] CenterFluoroscopic procedure less than one hour dvjqvugk5447-60-08 05:15:00* Test Item Value Reference Range Interpretation Comments Absolute Immature Granulocyte (auto (zeenat t code = Absolute Immature Granulocyte (auto) 0.01 0-0.1 [facility]ererum or plasma sodium measurement (moles/volume)2019-10-06 05:15:00* Test Item Value Reference Range Interpretation Comments Sodium Level (test code = 2951-2) 135 136-145 [facility] Centererum or plasma potassium measurement (moles/volume)2019-10-06 05:15:00* Test Item Value Reference Range Interpretation Comments Potassium Level (test code = 2823-3) 3.4 3.5-5.1 [facility] Centererum or plasma chloride measurement (moles/volume)2019-10-06 05:15:00* Test Item Value Reference Range Interpretation Comments Chloride Level (test code = 2075-0) 99 98-107 [facility] Centererum or plasma carbon dioxide, total measurement (moles/volume)2019-10-06 05:15:00* Test Item Value Reference Range Interpretation Comments Carbon Dioxide Level (test code = 2028-9) 29 22-29 [facility] Centererum or plasma anion dez6523-48-88 05:15:00* Test Item Value Reference Range Interpretation Comments Anion Gap (test code = 57374-1) 10.4 8-16 [facility] Centererum or plasma urea nitrogen measurement (mass/volume)2019-10-06 05:15:00* Test Item Value Reference Range Interpretation Comments Blood Urea Nitrogen (test code = 3094-0) < 5 7-26 [facility]ererum or plasma creatinine measurement (mass/volume)2019-10-06 05:15:00* Test Item Value Reference Range Interpretation Comments Creatinine (test code = 2160-0) 1.04 0.72-1.25 [facility]ererum or plasma urea nitrogen/creatinine mass umjcg0698-89-70 05:15:00* Test Item Value Reference Range Interpretation Comments BUN/Creatinine Ratio (test code = 3097-3) 5 6-25 [facility] CenterEstimated glomerular filtration rate (GFR) qzmqsebbcashm0991-56-95 05:15:00* Test Item Value Reference Range Interpretation Comments Estimat Glomerular Filtration Rate (test code = 657895912) > 60 >60 Ranges were taken from the National Kidney Disease Education Program and the [facility] literature.Reference ranges:60 or greater: Gzpdss48-57 ( for 3 consecutive months): Chronic kidney disease 15 or less: Kidney failureCedar Park Regional Medical CenterGlucose rxytjjfbkgn6102-26-43 05:15:00* Test Item Value Reference Range Interpretation Comments Glucose Level (test code = WBK9622) 202 74-118 [facility]ererum or plasma calcium measurement (mass/volume)2019-10-06 05:15:00* Test Item Value Reference Range Interpretation Comments Calcium Level (test code = 82404-4) 8.7 8.4-10.2 [facility] CenterCapillary blood glucose measurement by glucometer (mass/volume)2019-10-05 19:48:00* Test Item Value Reference Range Interpretation Comments Bedside Glucose (test code = 07604-8) 233 70-120 Meter ID: [id number] [facility] CenterUrine color lzslsckemmlvq9757-49-04 06:00:00* Test Item Value Reference Range Interpretation Comments Urine Color (test code = 5778-6) YELLOW YELLOW [facility] CenterUrine yhbyyat9471-53-67 06:00:00* Test Item Value Reference Range Interpretation Comments Urine Clarity (test code = 48414-8) CLEAR CLEAR [facility] Centerpecific gravity of Urine by Test strip 2019-10-05 06:00:00* Test Item Value Reference Range Interpretation Comments Urine Specific [place] (test code = 5811-5) 1.020 1.010-1.02 5 [facility] CenterUrine pH measurement by automated test qqhlz7725-12-52 06:00:00* Test Item Value Reference Range Interpretation Comments Urine pH (test code = 88003-7) 7.5 5-7 [facility] CenterUrine leukocyte esterase detection by ptmarzsm6243-53-26 06:00:00* Test Item Value Reference Range Interpretation Comments Urine Leukocyte Esterase (test code = 5799-2) NEGATIVE NEGATIVE [facility] CenterUrine nitrite daaupxnti3409-63-65 06:00:00* Test Item Value Reference Range Interpretation Comments Urine Nitrite (test code = 61809-6) NEGATIVE NEGATIVE [facility] CenterUrine protein measurement by test strip (mass/volume)2019-10-05 06:00:00* Test Item Value Reference Range Interpretation Comments Urine Protein (test code = 5804-0) NEGATIVE NEGATIVE [facility] CenterUrine glucose twasmshox1337-13-14 06:00:00* Test Item Value Reference Range Interpretation Comments Urine Glucose (UA) (test code = 2349-9) 2+ NEGATIVE [facility] CenterUrine ketones detection by automated test lfmyn1149-39-28 06:00:00* Test Item Value Reference Range Interpretation Comments Urine Ketones (test code = 63385-2) TRACE NEGATIVE [facility] CenterUrine opiates screening lmrg4239-80-72 06:00:00* Test Item Value Reference Range Interpretation Comments Urine Opiates Screen (test code = 60588-1) POSITIVE NEGATIVE This test provides only a screen. Positive results should be repeated by a confi rmatory test.[facility] CenterBarbiturates screen, urine 2019-10-05 06:00:00* Test Item Value Reference Range Interpretation Comments Urine Barbiturates Screen (test code = 491690391) NEGATIVE NEGA TIVE [facility] CenterUrine phencyclidine detection by screening ehfozi8440-87-61 06:00:00* Test Item Value Reference Range Interpretation Comments Urine Phencyclidine Screen (test code = 44173-0) NEGATIVE NEGAT [place] [facility] CenterUrine amphetamines detection by screen method > 1000 ng/mZ9565-15-88 06:00:00* Test Item Value Reference Range Interpretation Comments Urine Amphetamines Screen (test code = 51038-0) NEGATIVE NEGATI VE [facility] CenterFluoroscopic procedure less than one hour pjivpnso0314-90-56 06:00:00* Test Item Value Reference Range Interpretation Comments Urine Methamphetamines Screen (test code = Urine Metha mphetamines Screen) NEGATIVE NEGATIVE [facility] CenterUrine benzodiazepines detection by screening vioeze8137-66-10 06:00:00* Test Item Value Reference Range Interpretation Comments Urine Benzodiazepines Screen (test code = 42131-9) NEGATIVE NEG ATIVE [facility] CenterUrine cocaine measurement (mass/volume) 2019-10-05 06:00:00* Test Item Value Reference Range Interpretation Comments Urine Cocaine Screen (test code = 3398-5) NEGATIVE NEGATIVE [facility] CenterUrine cannabinoids detection by screening mixcnl6705-01-19 06:00:00* Test Item Value Reference Range Interpretation Comments Urine Cannabinoids Screen (test code = 67955-8) POSITIVE NEGATI VE This test provides only a screen. Positive results should be repeated by a confi rmatory test.[facility] CenterUrine methadone screen 2019-10-05 06:00:00* Test Item Value Reference Range Interpretation Comments Urine Methadone Screen (test code = 22400-2) NEGATIVE NEGATIVE THESE RESULTS ARE FOR MEDICAL TREATMENT ONLYTHIS REPORT CONTAINS UNCONFIR MED SCREENING RESULTS*POSITIVE RESULTS WILL BE CONFIRMED BY REFERENCE LAB UPON R EQUEST CUT-OFFDRUG CLASS CONCENTRATION ng/mLAmphetamines 1000Methamphetamines 1000Cocaine Metabolite 300Opiate 300Phencyc lidine 25Cannabinoid 50Barbiturates 300Benzodiazepine 300Methadone 300[facility] CenterUrine urobilinogen measurement by test strip (mass/volume)2019-10-05 06:00:00* Test Item Value Reference Range Interpretation Comments Urine Urobilinogen (test code = 88423-3) 0.2 0.2-1 [facility] CenterUrine total bilirubin measurement (mass/volume)2019-10-05 06:00:00* Test Item Value Reference Range Interpretation Comments Urine Bilirubin (test code = 1978-6) NEGATIVE NEGATIVE [facility] CenterUrine erythrocytes oxoywxjss2702-12-45 06:00:00* Test Item Value Reference Range Interpretation Comments Urine Blood (test code = 78724-0) TRACE NEGATIVE [facility] CenterAutomated urine sediment leukocyte count by microscopy (number/high power field)2019-10-05 06:00:00* Test Item Value Reference Range Interpretation Comments Urine WBC (test code = 5821-4) 0-5 0-5 [facility] CenterErythrocytes detection in urine sediment by light mdpvxahpab6584-19-77 06:00:00* Test Item Value Reference Range Interpretation Comments Urine RBC (test code = 90732-4) 0-5 0-5 [facility] CenterBacteria detection in urine sediment by light oxsmalsxoe9638-55-99 06:00:00* Test Item Value Reference Range Interpretation Comments Urine Bacteria (test code = 23878-3) RARE NONE [facility] CenterEpithelial cells detection in urine sediment by light wbehofzocx7105-95-79 06:00:00* Test Item Value Reference Range Interpretation Comments Urine Epithelial Cells (test code = 28405-2) RARE NONE [facility] CenterUrine color guboucixglztz6902-85-45 06:00:00* Test Item Value Reference Range Interpretation Comments Urine Color (test code = 5778-6) YELLOW YELLOW [facility] CenterUrine bnfkazu2294-80-26 06:00:00* Test Item Value Reference Range Interpretation Comments Urine Clarity (test code = 31079-3) CLEAR CLEAR [facility] Centerpecific gravity of Urine by Test strip 2019-10-05 06:00:00* Test Item Value Reference Range Interpretation Comments Urine Specific [place] (test code = 5811-5) 1.020 1.010-1.02 5 [facility] CenterUrine pH measurement by automated test cxbul1787-01-96 06:00:00* Test Item Value Reference Range Interpretation Comments Urine pH (test code = 95393-3) 7.5 5-7 [facility] CenterUrine leukocyte esterase detection by oyjwzzwq5061-31-27 06:00:00* Test Item Value Reference Range Interpretation Comments Urine Leukocyte Esterase (test code = 5799-2) NEGATIVE NEGATIVE [facility] CenterUrine nitrite dvruatqhk9707-63-02 06:00:00* Test Item Value Reference Range Interpretation Comments Urine Nitrite (test code = 33158-7) NEGATIVE NEGATIVE [facility] CenterUrine protein measurement by test strip (mass/volume)2019-10-05 06:00:00* Test Item Value Reference Range Interpretation Comments Urine Protein (test code = 5804-0) NEGATIVE NEGATIVE [facility] CenterUrine glucose bydqpkrmh7309-54-43 06:00:00* Test Item Value Reference Range Interpretation Comments Urine Glucose (UA) (test code = 2349-9) 2+ NEGATIVE [facility] CenterUrine ketones detection by automated test kgpro1147-23-15 06:00:00* Test Item Value Reference Range Interpretation Comments Urine Ketones (test code = 05997-1) TRACE NEGATIVE [facility] CenterUrine opiates screening gnaw2607-89-20 06:00:00* Test Item Value Reference Range Interpretation Comments Urine Opiates Screen (test code = 87502-9) POSITIVE NEGATIVE This test provides only a screen. Positive results should be repeated by a confi rmatory test.[facility] CenterBarbiturates screen, urine 2019-10-05 06:00:00* Test Item Value Reference Range Interpretation Comments Urine Barbiturates Screen (test code = 823373883) NEGATIVE NEGA TIVE [facility] CenterUrine phencyclidine detection by screening mvtrym9704-71-42 06:00:00* Test Item Value Reference Range Interpretation Comments Urine Phencyclidine Screen (test code = 04383-2) NEGATIVE NEGAT [place] [facility] CenterUrine amphetamines detection by screen method > 1000 ng/uR7572-24-59 06:00:00* Test Item Value Reference Range Interpretation Comments Urine Amphetamines Screen (test code = 20657-2) NEGATIVE NEGATI VE [facility] CenterFluoroscopic procedure less than one hour hyzdxmgx6179-83-33 06:00:00* Test Item Value Reference Range Interpretation Comments Urine Methamphetamines Screen (test code = Urine Metha mphetamines Screen) NEGATIVE NEGATIVE [facility] CenterUrine benzodiazepines detection by screening aloutk3833-92-09 06:00:00* Test Item Value Reference Range Interpretation Comments Urine Benzodiazepines Screen (test code = 90194-1) NEGATIVE NEG ATIVE [facility] CenterUrine cocaine measurement (mass/volume) 2019-10-05 06:00:00* Test Item Value Reference Range Interpretation Comments Urine Cocaine Screen (test code = 3398-5) NEGATIVE NEGATIVE [facility] CenterUrine cannabinoids detection by screening nabqaj5167-03-39 06:00:00* Test Item Value Reference Range Interpretation Comments Urine Cannabinoids Screen (test code = 43296-5) POSITIVE NEGATI VE This test provides only a screen. Positive results should be repeated by a confi rmatory test.[facility] CenterUrine methadone screen 2019-10-05 06:00:00* Test Item Value Reference Range Interpretation Comments Urine Methadone Screen (test code = 05871-8) NEGATIVE NEGATIVE THESE RESULTS ARE FOR MEDICAL TREATMENT ONLYTHIS REPORT CONTAINS UNCONFIR MED SCREENING RESULTS*POSITIVE RESULTS WILL BE CONFIRMED BY REFERENCE LAB UPON R EQUEST CUT-OFFDRUG CLASS CONCENTRATION ng/mLAmphetamines 1000Methamphetamines 1000Cocaine Metabolite 300Opiate 300Phencyc lidine 25Cannabinoid 50Barbiturates 300Benzodiazepine 300Methadone 300[facility] CenterUrine urobilinogen measurement by test strip (mass/volume)2019-10-05 06:00:00* Test Item Value Reference Range Interpretation Comments Urine Urobilinogen (test code = 94281-4) 0.2 0.2-1 [facility] CenterUrine total bilirubin measurement (mass/volume)2019-10-05 06:00:00* Test Item Value Reference Range Interpretation Comments Urine Bilirubin (test code = 1978-6) NEGATIVE NEGATIVE [facility] CenterUrine erythrocytes gkansehdo1499-81-98 06:00:00* Test Item Value Reference Range Interpretation Comments Urine Blood (test code = 51762-3) TRACE NEGATIVE [facility] CenterAutomated urine sediment leukocyte count by microscopy (number/high power field)2019-10-05 06:00:00* Test Item Value Reference Range Interpretation Comments Urine WBC (test code = 5821-4) 0-5 0-5 [facility] CenterErythrocytes detection in urine sediment by light vlwnzfbrjp2769-73-92 06:00:00* Test Item Value Reference Range Interpretation Comments Urine RBC (test code = 05382-2) 0-5 0-5 [facility] CenterBacteria detection in urine sediment by light legcgjodqu4186-38-32 06:00:00* Test Item Value Reference Range Interpretation Comments Urine Bacteria (test code = 41145-4) RARE NONE [facility] CenterEpithelial cells detection in urine sediment by light umgbaudopv2175-34-15 06:00:00* Test Item Value Reference Range Interpretation Comments Urine Epithelial Cells (test code = 00293-3) RARE NONE [facility] CenterUrine color ctvcblqvtjbqc7933-15-91 06:00:00* Test Item Value Reference Range Interpretation Comments Urine Color (test code = 5778-6) YELLOW YELLOW [facility] CenterUrine jrosflr2923-95-91 06:00:00* Test Item Value Reference Range Interpretation Comments Urine Clarity (test code = 46449-8) CLEAR CLEAR [facility] Centerpecific gravity of Urine by Test strip 2019-10-05 06:00:00* Test Item Value Reference Range Interpretation Comments Urine Specific [place] (test code = 5811-5) 1.020 1.010-1.02 5 [facility] CenterUrine pH measurement by automated test rjvny6912-47-89 06:00:00* Test Item Value Reference Range Interpretation Comments Urine pH (test code = 46994-5) 7.5 5-7 [facility] CenterUrine leukocyte esterase detection by sizowkvw6025-60-81 06:00:00* Test Item Value Reference Range Interpretation Comments Urine Leukocyte Esterase (test code = 5799-2) NEGATIVE NEGATIVE [facility] CenterUrine nitrite mlazbsfaq1322-56-27 06:00:00* Test Item Value Reference Range Interpretation Comments Urine Nitrite (test code = 81142-7) NEGATIVE NEGATIVE [facility] CenterUrine protein measurement by test strip (mass/volume)2019-10-05 06:00:00* Test Item Value Reference Range Interpretation Comments Urine Protein (test code = 5804-0) NEGATIVE NEGATIVE [facility] CenterUrine glucose iyhvwunmi9545-99-13 06:00:00* Test Item Value Reference Range Interpretation Comments Urine Glucose (UA) (test code = 2349-9) 2+ NEGATIVE [facility] CenterUrine ketones detection by automated test asggo0995-18-58 06:00:00* Test Item Value Reference Range Interpretation Comments Urine Ketones (test code = 01709-0) TRACE NEGATIVE [facility] CenterUrine opiates screening lacq6523-49-41 06:00:00* Test Item Value Reference Range Interpretation Comments Urine Opiates Screen (test code = 68532-2) POSITIVE NEGATIVE This test provides only a screen. Positive results should be repeated by a confi rmatory test.[facility] CenterBarbiturates screen, urine 2019-10-05 06:00:00* Test Item Value Reference Range Interpretation Comments Urine Barbiturates Screen (test code = 090291484) NEGATIVE NEGA TIVE [facility] CenterUrine phencyclidine detection by screening ceohnf9493-12-49 06:00:00* Test Item Value Reference Range Interpretation Comments Urine Phencyclidine Screen (test code = 37141-5) NEGATIVE NEGAT GILSON [facility] CenterUrine amphetamines detection by screen method > 1000 ng/pE2710-64-03 06:00:00* Test Item Value Reference Range Interpretation Comments Urine Amphetamines Screen (test code = 51672-7) NEGATIVE NEGATI VE [facility] CenterFluoroscopic procedure less than one hour slnjivgo5588-39-94 06:00:00* Test Item Value Reference Range Interpretation Comments Urine Methamphetamines Screen (test code = Urine Metha mphetamines Screen) NEGATIVE NEGATIVE [facility] CenterUrine benzodiazepines detection by screening pblifk7368-69-59 06:00:00* Test Item Value Reference Range Interpretation Comments Urine Benzodiazepines Screen (test code = 69213-7) NEGATIVE NEG ATIVE [facility] CenterUrine cocaine measurement (mass/volume) 2019-10-05 06:00:00* Test Item Value Reference Range Interpretation Comments Urine Cocaine Screen (test code = 3398-5) NEGATIVE NEGATIVE [facility] CenterUrine cannabinoids detection by screening ekpype1047-48-23 06:00:00* Test Item Value Reference Range Interpretation Comments Urine Cannabinoids Screen (test code = 82227-7) POSITIVE NEGATI VE This test provides only a screen. Positive results should be repeated by a confi rmatory test.[facility] CenterUrine methadone screen 2019-10-05 06:00:00* Test Item Value Reference Range Interpretation Comments Urine Methadone Screen (test code = 51683-9) NEGATIVE NEGATIVE THESE RESULTS ARE FOR MEDICAL TREATMENT ONLYTHIS REPORT CONTAINS UNCONFIR MED SCREENING RESULTS*POSITIVE RESULTS WILL BE CONFIRMED BY REFERENCE LAB UPON R EQUEST CUT-OFFDRUG CLASS CONCENTRATION ng/mLAmphetamines 1000Methamphetamines 1000Cocaine Metabolite 300Opiate 300Phencyc lidine 25Cannabinoid 50Barbiturates 300Benzodiazepine 300Methadone 300[facility] CenterUrine urobilinogen measurement by test strip (mass/volume)2019-10-05 06:00:00* Test Item Value Reference Range Interpretation Comments Urine Urobilinogen (test code = 03781-0) 0.2 0.2-1 [facility] CenterUrine total bilirubin measurement (mass/volume)2019-10-05 06:00:00* Test Item Value Reference Range Interpretation Comments Urine Bilirubin (test code = 1978-6) NEGATIVE NEGATIVE [facility] CenterUrine erythrocytes qrhwdhvvy8028-00-37 06:00:00* Test Item Value Reference Range Interpretation Comments Urine Blood (test code = 56230-1) TRACE NEGATIVE [facility] CenterAutomated urine sediment leukocyte count by microscopy (number/high power field)2019-10-05 06:00:00* Test Item Value Reference Range Interpretation Comments Urine WBC (test code = 5821-4) 0-5 0-5 [facility] CenterErythrocytes detection in urine sediment by light qptgfetfcl6182-60-59 06:00:00* Test Item Value Reference Range Interpretation Comments Urine RBC (test code = 73980-2) 0-5 0-5 [facility] CenterBacteria detection in urine sediment by light jzhuthliao8722-20-41 06:00:00* Test Item Value Reference Range Interpretation Comments Urine Bacteria (test code = 18514-4) RARE NONE [facility] CenterEpithelial cells detection in urine sediment by light lwrvsncncx2416-47-54 06:00:00* Test Item Value Reference Range Interpretation Comments Urine Epithelial Cells (test code = 12340-4) RARE NONE [facility] CenterProthrombin time (PT) in platelet poor plasma by coagulation ngfhh0098-22-06 05:08:00* Test Item Value Reference Range Interpretation Comments Prothrombin Time (test code = 5902-2) 13.4 11.9-14.5 [facility] CenterINR in Platelet poor plasma by Coagulation pomih9826-60-93 05:08:00* Test Item Value Reference Range Interpretation Comments Prothromb Time International Ratio (test code = 6301-6) 0.96 Oral Anticoagulant Therapy INR Values:1. Low Intensity Therapy 1.5 - 2.02 . Moderate Intensity Therapy 2.0 - 3.03. High Intensity Therapy(1) 2.5 - 3. 54. High Intensity Therapy(2) 3.0 - 4.05. Panic Value INR > 5.0 [facility] CenterProthrombin time (PT) in platelet poor plasma by coagulation mnuuo3015-60-77 05:08:00* Test Item Value Reference Range Interpretation Comments Prothrombin Time (test code = 5902-2) 13.4 11.9-14.5 [facility] CenterINR in Platelet poor plasma by Coagulation koawz1936-23-77 05:08:00* Test Item Value Reference Range Interpretation Comments Prothromb Time International Ratio (test code = 6301-6) 0.96 Oral Anticoagulant Therapy INR Values:1. Low Intensity Therapy 1.5 - 2.02 . Moderate Intensity Therapy 2.0 - 3.03. High Intensity Therapy(1) 2.5 - 3. 54. High Intensity Therapy(2) 3.0 - 4.05. Panic Value INR > 5.0 [facility] CenterProthrombin time (PT) in platelet poor plasma by coagulation sgefr3049-19-63 05:08:00* Test Item Value Reference Range Interpretation Comments Prothrombin Time (test code = 5902-2) 13.4 11.9-14.5 [facility] CenterINR in Platelet poor plasma by Coagulation sqbky6640-93-07 05:08:00* Test Item Value Reference Range Interpretation Comments Prothromb Time International Ratio (test code = 6301-6) 0.96 Oral Anticoagulant Therapy INR Values:1. Low Intensity Therapy 1.5 - 2.02 . Moderate Intensity Therapy 2.0 - 3.03. High Intensity Therapy(1) 2.5 - 3. 54. High Intensity Therapy(2) 3.0 - 4.05. Panic Value INR > 5.0 [facility] CenterCT ABDOMEN/PELVIS [id number] 12:03:00 [facility] [address] [address] Patient Name: BREE LINDSAY MR #: [id number] : 1975 Age/Sex: 43/M Req #: [id number] Adm Physician: ISACC JAVED MD Ordered by: LU SADLER DO Rep ort #: [id number] Location: MED/SURG Room/B ed: 115-1 Procedure: [id number] CT/CT ABDOMEN/ PELVIS W Exam Date: 10/04/19 [...] Bilirubin (test code = 1975-2) 0.4 0.2-1.2 [facility] CenterFluoroscopic procedure less than one hour xnxifclj5336-99-29 06:25:00* Test Item Value Reference Range Interpretation Comments Aspartate Amino Transf (AST/SGOT) (test code = Aspartate Amino Transf (AST/SGOT)) 20 5-34 [facility] Centererum or plasma alanine aminotransferase measurement (enzymatic activity/volume)2019-10-04 06:25:00* Test Item Value Reference Range Interpretation Comments Alanine Aminotransferase (ALT/SGPT) (test code = 1742-6) 15 0-55 [facility] Centererum or plasma protein measurement (mass/volume)2019-10-04 06:25:00* Test Item Value Reference Range Interpretation Comments Total Protein (test code = 2885-2) 7.2 6.5-8.1 [facility] Centererum or plasma albumin measurement (mass/volume)2019-10-04 06:25:00* Test Item Value Reference Range Interpretation Comments Albumin (test code = 1751-7) 3.9 3.5-5.0 [facility] CenterPlasma globulin measurement (mass/volume) 2019-10-04 06:25:00* Test Item Value Reference Range Interpretation Comments Globulin (test code = 57295-7) 3.3 2.3-3.5 [facility] Centererum or plasma albumin/globulin mass zrdex6197-69-46 06:25:00* Test Item Value Reference Range Interpretation Comments Albumin/Globulin Ratio (test code = 1759-0) 1.2 0.8-2.0 [facility] Centererum or plasma alkaline phosphatase measurement (enzymatic activity/volume)2019-10-04 06:25:00* Test Item Value Reference Range Interpretation Comments Alkaline Phosphatase (test code = 6768-6) 90 40-150 [facility] Centererum or plasma total bilirubin measurement (mass/volume)2019-10-04 06:25:00* Test Item Value Reference Range Interpretation Comments Total Bilirubin (test code = 1975-2) 0.4 0.2-1.2 [facility] CenterFluoroscopic procedure less than one hour dgbpjigc7171-49-39 06:25:00* Test Item Value Reference Range Interpretation Comments Aspartate Amino Transf (AST/SGOT) (test code = Aspartate Amino Transf (AST/SGOT)) 20 5-34 [facility] Centererum or plasma alanine aminotransferase measurement (enzymatic activity/volume)2019-10-04 06:25:00* Test Item Value Reference Range Interpretation Comments Alanine Aminotransferase (ALT/SGPT) (test code = 1742-6) 15 0-55 [facility] Centererum or plasma protein measurement (mass/volume)2019-10-04 06:25:00* Test Item Value Reference Range Interpretation Comments Total Protein (test code = 2885-2) 7.2 6.5-8.1 [facility] Centererum or plasma albumin measurement (mass/volume)2019-10-04 06:25:00* Test Item Value Reference Range Interpretation Comments Albumin (test code = 1751-7) 3.9 3.5-5.0 [facility] CenterPlasma globulin measurement (mass/volume) 2019-10-04 06:25:00* Test Item Value Reference Range Interpretation Comments Globulin (test code = 84269-7) 3.3 2.3-3.5 [facility] Centererum or plasma albumin/globulin mass cvgnb2641-21-57 06:25:00* Test Item Value Reference Range Interpretation Comments Albumin/Globulin Ratio (test code = 1759-0) 1.2 0.8-2.0 [facility] Centererum or plasma alkaline phosphatase measurement (enzymatic activity/volume)2019-10-04 06:25:00* Test Item Value Reference Range Interpretation Comments Alkaline Phosphatase (test code = 6768-6) 90 40-150 [facility] Centererum or plasma total bilirubin measurement (mass/volume)2019-10-04 06:25:00* Test Item Value Reference Range Interpretation Comments Total Bilirubin (test code = 1975-2) 0.4 0.2-1.2 [facility] CenterFluoroscopic procedure less than one hour txvnuvnx9266-81-75 06:25:00* Test Item Value Reference Range Interpretation Comments Aspartate Amino Transf (AST/SGOT) (test code = Aspartate Amino Transf (AST/SGOT)) 20 5-34 [facility] Centererum or plasma alanine aminotransferase measurement (enzymatic activity/volume)2019-10-04 06:25:00* Test Item Value Reference Range Interpretation Comments Alanine Aminotransferase (ALT/SGPT) (test code = 1742-6) 15 0-55 [facility] Centererum or plasma protein measurement (mass/volume)2019-10-04 06:25:00* Test Item Value Reference Range Interpretation Comments Total Protein (test code = 2885-2) 7.2 6.5-8.1 [facility] Centererum or plasma albumin measurement (mass/volume)2019-10-04 06:25:00* Test Item Value Reference Range Interpretation Comments Albumin (test code = 1751-7) 3.9 3.5-5.0 [facility] CenterPlasma globulin measurement (mass/volume) 2019-10-04 06:25:00* Test Item Value Reference Range Interpretation Comments Globulin (test code = 16417-3) 3.3 2.3-3.5 [facility] Centererum or plasma albumin/globulin mass gxjsk2117-35-06 06:25:00* Test Item Value Reference Range Interpretation Comments Albumin/Globulin Ratio (test code = 1759-0) 1.2 0.8-2.0 [facility] Centererum or plasma alkaline phosphatase measurement (enzymatic activity/volume)2019-10-04 06:25:00* Test Item Value Reference Range Interpretation Comments Alkaline Phosphatase (test code = 6768-6) 90 40-150 [facility] CenterFluoroscopic procedure less than one hour gnmveuta9461-01-54 01:50:00* Test Item Value Reference Range Interpretation [...] under 564(g) of the ACT.Testing performed by [facility] [place], [place] [address]RDACedar Park [facility] Medical CenterFluoroscopic procedure less than one [...] under 564(g) of the ACT.Testing performed by [address]CT ABDOM[address]/PELVIS Q5263-74-46 12:40:00 [address] [address] Patient Name: BREE LINDSAY MR #: [id number] : 1975 Age/Sex: 43/M Req #: [id number] Adm Physician: Ordered by: STACIE FALLON, JEANNIE FALLON Report #: [id number] Location: [facility] marcus/Bed: Procedure: [id number] CT/CT ABD OMEN/PELVIS W Exam Date: 09/30/19 [...] (PT) in platelet poor plasma by coagulation kiegz3532-97-24 09:55:00* Test Item Value Reference Range Interpretation Comments Prothrombin Time (test code = 5902-2) 13.3 11.9-14.5 [facility] CenterINR in Platelet poor plasma by Coagulation elwgm8467-33-77 09:55:00* Test Item Value Reference Range Interpretation Comments Prothromb Time International Ratio (test code = 6301-6) 0.96 Oral Anticoagulant Therapy INR Values:1. Low Intensity Therapy 1.5 - 2.02 . Moderate Intensity Therapy 2.0 - 3.03. High Intensity Therapy(1) 2.5 - 3. 54. High Intensity Therapy(2) 3.0 - 4.05. Panic Value INR > 5.0 [facility] CenterActivated partial thromboplastin time (aPTT) in platelet poor plasma by coagulation eeymp2587-80-20 09:55:00* Test Item Value Reference Range Interpretation Comments Activated Partial Thromboplast Time (test code = 42903-5) 26.1 23.8-35.5 [facility] Centererum or plasma sodium measurement (moles/volume)2019-09-30 09:55:00* Test Item Value Reference Range Interpretation Comments Sodium Level (test code = 2951-2) 142 136-145 [facility] Centererum or plasma potassium measurement (moles/volume)2019-09-30 09:55:00* Test Item Value Reference Range Interpretation Comments Potassium Level (test code = 2823-3) 3.9 3.5-5.1 [facility] Centererum or plasma chloride measurement (moles/volume)2019-09-30 09:55:00* Test Item Value Reference Range Interpretation Comments Chloride Level (test code = 2075-0) 103 98-107 [facility] Centererum or plasma carbon dioxide, total measurement (moles/volume)2019-09-30 09:55:00* Test Item Value Reference Range Interpretation Comments Carbon Dioxide Level (test code = 2028-9) 30 22-29 [facility] Centererum or plasma anion fxz1062-56-26 09:55:00* Test Item Value Reference Range Interpretation Comments Anion Gap (test code = 02111-4) 12.9 8-16 [facility] Centererum or plasma urea nitrogen measurement (mass/volume)2019-09-30 09:55:00* Test Item Value Reference Range Interpretation Comments Blood Urea Nitrogen (test code = 3094-0) 13 7-26 [facility] Centererum or plasma creatinine measurement (mass/volume)2019-09-30 09:55:00* Test Item Value Reference Range Interpretation Comments Creatinine (test code = 2160-0) 1.18 0.72-1.25 [facility] Centererum or plasma urea nitrogen/creatinine mass nytjj0861-54-58 09:55:00* Test Item Value Reference Range Interpretation Comments BUN/Creatinine Ratio (test code = 3097-3) 11 6-25 [facility] CenterEstimated glomerular filtration rate (GFR) iewbjpwpdkgrl3820-98-74 09:55:00* Test Item Value Reference Range Interpretation Comments Estimat Glomerular Filtration Rate (test code = 252357720) > 60 >60 Ranges were taken from the National Kidney Disease Education Program and the [facility] literature.Reference ranges:60 or greater: Qeftju45-08 ( for 3 consecutive months): Chronic kidney disease 15 or less: Kidney failureCedar Park Regional Medical CenterGlucose uoqzepedowq4254-65-54 09:55:00* Test Item Value Reference Range Interpretation Comments Glucose Level (test code = EFN0114) 328 74-118 [facility]ererum or plasma calcium measurement (mass/volume)2019-09-30 09:55:00* Test Item Value Reference Range Interpretation Comments Calcium Level (test code = 63719-8) 8.8 8.4-10.2 [facility] CenterFluoroscopic procedure less than one hour kpjeanbp7131-67-43 09:55:00* Test Item Value Reference Range Interpretation Comments Lactic Acid Level (test code = Lactic Acid Level) 1.0 0.5- 2.0 [facility]ererum or plasma total bilirubin measurement (mass/volume)2019-09-30 09:55:00* Test Item Value Reference Range Interpretation Comments Total Bilirubin (test code = 1975-2) 0.5 0.2-1.2 [facility] CenterFluoroscopic procedure less than one hour ysdwfkyy3466-19-89 09:55:00* Test Item Value Reference Range Interpretation Comments Aspartate Amino Transf (AST/SGOT) (test code = Aspartate Amino Transf (AST/SGOT)) 16 5-34 [facility] Centererum or plasma alanine aminotransferase measurement (enzymatic activity/volume)2019-09-30 09:55:00* Test Item Value Reference Range Interpretation Comments Alanine Aminotransferase (ALT/SGPT) (test code = 1742-6) 15 0-55 [facility] Centererum or plasma protein measurement (mass/volume)2019-09-30 09:55:00* Test Item Value Reference Range Interpretation Comments Total Protein (test code = 2885-2) 6.4 6.5-8.1 [facility] Centererum or plasma albumin measurement (mass/volume)2019-09-30 09:55:00* Test Item Value Reference Range Interpretation Comments Albumin (test code = 1751-7) 3.4 3.5-5.0 [facility] CenterPlasma globulin measurement (mass/volume) 2019-09-30 09:55:00* Test Item Value Reference Range Interpretation Comments Globulin (test code = 34352-5) 3.0 2.3-3.5 [facility]ererum or plasma albumin/globulin mass igiur4749-90-29 09:55:00* Test Item Value Reference Range Interpretation Comments Albumin/Globulin Ratio (test code = 1759-0) 1.1 0.8-2.0 [facility]ererum or plasma alkaline phosphatase measurement (enzymatic activity/volume)2019-09-30 09:55:00* Test Item Value Reference Range Interpretation Comments Alkaline Phosphatase (test code = 6768-6) 92 40-150 [facility] Centererum or plasma creatine kinase measurement (enzymatic activity/volume)2019-09-30 09:55:00* Test Item Value Reference Range Interpretation Comments Creatine Kinase (test code = 2157-6) 365 30-200 [facility] Centererum or plasma creatine kinase MB measurement (mass/volume)2019-09-30 09:55:00* Test Item Value Reference Range Interpretation Comments Creatine Kinase MB (test code = 31384-5) 1.50 0-5.0 [facility] CenterTroponin I measurement by highly sensitive enzyme viavkcbqbeq9605-03-66 09:55:00* Test Item Value Reference Range Interpretation Comments Troponin I (test code = 97178-9) 0.001 0-0.300 [facility] Centererum or plasma amylase measurement (enzymatic activity/volume)2019-09-30 09:55:00* Test Item Value Reference Range Interpretation Comments Amylase Level (test code = 1798-8) 49 25-125 [facility]ererum or plasma lipase measurement (enzymatic activity/volume)2019-09-30 09:55:00* Test Item Value Reference Range Interpretation Comments Lipase (test code = 3040-3) < 4 8-78 [facility] CenterActivated partial thromboplastin time (aPTT) in platelet poor plasma by coagulation xxqjf2042-42-78 09:55:00* Test Item Value Reference Range Interpretation Comments Activated Partial Thromboplast Time (test code = 93968-5) 26.1 23.8-35.5 [facility] CenterFluoroscopic procedure less than one hour rntxpybb3683-04-31 09:55:00* Test Item Value Reference Range Interpretation Comments Lactic Acid Level (test code = Lactic Acid Level) 1.0 0.5- 2.0 [facility] Centererum or plasma creatine kinase measurement (enzymatic activity/volume)2019-09-30 09:55:00* Test Item Value Reference Range Interpretation Comments Creatine Kinase (test code = 2157-6) 365 30-200 [facility] Centererum or plasma creatine kinase MB measurement (mass/volume)2019-09-30 09:55:00* Test Item Value Reference Range Interpretation Comments Creatine Kinase MB (test code = 41192-5) 1.50 0-5.0 [facility] CenterTroponin I measurement by highly sensitive enzyme aglihpndvca4781-41-31 09:55:00* Test Item Value Reference Range Interpretation Comments Troponin I (test code = 48694-3) 0.001 0-0.300 [facility] Centererum or plasma amylase measurement (enzymatic activity/volume)2019-09-30 09:55:00* Test Item Value Reference Range Interpretation Comments Amylase Level (test code = 1798-8) 49 25-125 [facility]ererum or plasma lipase measurement (enzymatic activity/volume)2019-09-30 09:55:00* Test Item Value Reference Range Interpretation Comments Lipase (test code = 3040-3) < 4 8-78 [facility] CenterActivated partial thromboplastin time (aPTT) in platelet poor plasma by coagulation xqrmr5992-23-01 09:55:00* Test Item Value Reference Range Interpretation Comments Activated Partial Thromboplast Time (test code = 65996-3) 26.1 23.8-35.5 [facility] CenterFluoroscopic procedure less than one hour gotbitlb0426-97-73 09:55:00* Test Item Value Reference Range Interpretation Comments Lactic Acid Level (test code = Lactic Acid Level) 1.0 0.5- 2.0 [facility] Centererum or plasma creatine kinase measurement (enzymatic activity/volume)2019-09-30 09:55:00* Test Item Value Reference Range Interpretation Comments Creatine Kinase (test code = 2157-6) 365 30-200 [facility] Centererum or plasma creatine kinase MB measurement (mass/volume)2019-09-30 09:55:00* Test Item Value Reference Range Interpretation Comments Creatine Kinase MB (test code = 94291-6) 1.50 0-5.0 [facility] CenterTroponin I measurement by highly sensitive enzyme lgxuoldkogu0091-44-76 09:55:00* Test Item Value Reference Range Interpretation Comments Troponin I (test code = 77071-0) 0.001 0-0.300 [facility]ererum or plasma amylase measurement (enzymatic activity/volume)2019-09-30 09:55:00* Test Item Value Reference Range Interpretation Comments Amylase Level (test code = 1798-8) 49 25-125 [facility] CenterActivated partial thromboplastin time (aPTT) in platelet poor plasma by coagulation krhde9318-82-42 09:55:00* Test Item Value Reference Range Interpretation Comments Activated Partial Thromboplast Time (test code = 58373-1) 26.1 23.8-35.5 [facility] CenterFluoroscopic procedure less than one hour hoteslah7593-00-06 09:55:00* Test Item Value Reference Range Interpretation Comments Lactic Acid Level (test code = Lactic Acid Level) 1.0 0.5- 2.0 [facility] Centererum or plasma creatine kinase measurement (enzymatic activity/volume)2019-09-30 09:55:00* Test Item Value Reference Range Interpretation Comments Creatine Kinase (test code = 2157-6) 365 30-200 [facility] Centererum or plasma creatine kinase MB measurement (mass/volume)2019-09-30 09:55:00* Test Item Value Reference Range Interpretation Comments Creatine Kinase MB (test code = 96160-7) 1.50 0-5.0 [facility] CenterTroponin I measurement by highly sensitive enzyme bjvracketpe9013-55-13 09:55:00* Test Item Value Reference Range Interpretation Comments Troponin I (test code = 39307-2) 0.001 0-0.300 [facility] Centererum or plasma amylase measurement (enzymatic activity/volume)2019-09-30 09:55:00* Test Item Value Reference Range Interpretation Comments Amylase Level (test code = 1798-8) 49 25-125 [facility] CenterCHEST SINGLE (PORTABLE)2019-09-30 09:23:00 [facility] [address] [place] [address] Patient Name: BREE LINDSAY MR #: [id number] : 1975 Age/Sex: 43/M Req #: [id number] Adm Physician: Ordered by: STACIE FALLON, JEANNIE FALLON Report #: [id number] Location: ER Room/Bed: Procedure: [id number] DX/CHEST SINGLE (PORTABLE) Exam Date: 09/30/19 Exam Time: 083 5 REPORT STATUS: Signed EXAMINAT ION: CHEST SINGLE (PORTABLE) INDICATION: ERMD ORDER [id number] Y COMPARISON: Chest radiograph 07/23/2019, [...] Count (test code = 6690-2) 9.64 4.8-10.8 [facility] CenterBlood erythrocytes automated count (number/volume)2019-09-30 09:10:00* Test Item Value Reference Range Interpretation Comments Red Blood Count (test code = 789-8) 3.70 4.3-5.7 [facility] CenterBlood hemoglobin measurement (moles/volume)2019-09-30 09:10:00* Test Item Value Reference Range Interpretation Comments Hemoglobin (test code = 83160-9) 10.4 14.0-18.0 [facility] CenterAutomated blood hematocrit (volume fraction)2019-09-30 09:10:00* Test Item Value Reference Range Interpretation Comments Hematocrit (test code = 4544-3) 32.9 38.2-49.6 [facility] CenterAutomated erythrocyte mean corpuscular vzgtbg4023-27-64 09:10:00* Test Item Value Reference Range Interpretation Comments Mean Corpuscular Volume (test code = 787-2) 88.9 81-99 [facility] CenterAutomated erythrocyte mean corpuscular hemoglobin (mass per erythrocyte)2019-09-30 09:10:00* Test Item Value Reference Range Interpretation Comments Mean Corpuscular Hemoglobin (test code = 785-6) 28.1 28-32 [facility] CenterAutatrium health [facility] rehabilitation charlotteed erythrocyte mean corpuscular hemoglobin concentration measurement (mass/volume)2019-09-30 09:10:00* Test Item Value Reference Range Interpretation Comments Mean Corpuscular Hemoglobin Concent (test code = 786-4) 31.6 31-35 [facility] CenterRDW FzoGu-Vkm0283-52-03 09:10:00* Test Item Value Reference Range Interpretation Comments Red Cell Distribution Width (test code = 16891-5) 14.0 11.7 -14.4 [facility] CenterAutatrium health [facility] rehabilitation charlotteed blood platelet count (count/volume)2019-09-30 09:10:00* Test Item Value Reference Range Interpretation Comments Platelet Count (test code = 777-3) 263 140-360 [facility] CenterAutomated blood segmented neutrophil count as percentage of total xxiycobpog9563-75-76 09:10:00* Test Item Value Reference Range Interpretation Comments Neutrophils (%) (Auto) (test code = 74950-9) 80.4 38.7-80.0 [facility] CenterAutomated blood lymphocyte count as percentage ot total ahsxticuuo5470-08-82 09:10:00* Test Item Value Reference Range Interpretation Comments Lymphocytes (%) (Auto) (test code = 736-9) 11.5 18.0-39.1 [facility] CenterAutomated blood monocyte count as percentage of total ylyzxhxjnq0962-26-08 09:10:00* Test Item Value Reference Range Interpretation Comments Monocytes (%) (Auto) (test code = 5905-5) 6.3 4.4-11.3 [facility] CenterAutomated blood eosinophil count as percentage of total xqmipiwupx5367-65-66 09:10:00* Test Item Value Reference Range Interpretation Comments Eosinophils (%) (Auto) (test code = 713-8) 0.7 0.0-6.0 [facility] CenterAutomated blood basophil count as percentage of total jxsrmiciwp5174-63-50 09:10:00* Test Item Value Reference Range Interpretation Comments Basophils (%) (Auto) (test code = 706-2) 0.8 0.0-1.0 [facility] CenterFluoroscopic procedure less than one hour fvkczzia5141-60-57 09:10:00* Test Item Value Reference Range Interpretation Comments IM GRANULOCYTES % (test code = IM GRANULOCYTES %) 0.3 0.0- 1.0 [facility] CenterAutomated blood neutrophil count 2019-09-30 09:10:00* Test Item Value Reference Range Interpretation Comments Neutrophils # (Auto) (test code = 751-8) 7.7 2.1-6.9 [facility] CenterBlood lymphocytes count (number/volume) 2019-09-30 09:10:00* Test Item Value Reference Range Interpretation Comments Lymphocytes # (Auto) (test code = 90034-2) 1.1 1.0-3.2 [facility] CenterBlood monocytes automated count (number/volume)2019-09-30 09:10:00* Test Item Value Reference Range Interpretation Comments Monocytes # (Auto) (test code = 742-7) 0.6 0.2-0.8 [facility] CenterAutomated blood eosinophil count 2019-09-30 09:10:00* Test Item Value Reference Range Interpretation Comments Eosinophils # (Auto) (test code = 711-2) 0.1 0.0-0.4 [facility] CenterAutomated blood basophil count (count/volume)2019-09-30 09:10:00* Test Item Value Reference Range Interpretation Comments Basophils # (Auto) (test code = 704-7) 0.1 0.0-0.1 [facility] CenterFluoroscopic procedure less than one hour ztumezfr5099-78-45 09:10:00* Test Item Value Reference Range Interpretation Comments Absolute Immature Granulocyte (auto (zeenat t code = Absolute Immature Granulocyte (auto) 0.03 0-0.1 [facility] CenterBlood lvsohtc4215-95-42 09:10:00* Test Item Value Reference Range Interpretation Comments Blood Culture (test code = 04346043) NO GROWTH AFTER 5 DAYS, FINAL REPORT [facility] crcbkwy0628-65-46 09:10:00* Test Item Value Reference Range Interpretation Comments Blood Culture (test code = 25145045) NO GROWTH AFTER 5 DAYS, [facility] jdwkhaf4015-10-53 09:10:00* Test Item Value Reference Range Interpretation Comments Blood Culture (test code = 94001999) NO GROWTH AFTER 5 DAYS, FINAL REPORT [facility] CenterUrine color kpvkbvivykmys8757-52-51 08:44:00* Test Item Value Reference Range Interpretation Comments Urine Color (test code = 5778-6) YELLOW YELLOW [facility] CenterUrine csxyaas0512-65-47 08:44:00* Test Item Value Reference Range Interpretation Comments Urine Clarity (test code = 10889-3) CLEAR CLEAR [facility] Centerpecific gravity of Urine by Test strip 2019-09-30 08:44:00* Test Item Value Reference Range Interpretation Comments Urine Specific [place] (test code = 5811-5) 1.025 1.010-1.02 5 [facility] CenterUrine pH measurement by automated test hpytr1833-73-19 08:44:00* Test Item Value Reference Range Interpretation Comments Urine pH (test code = 60876-0) 7 5-7 [facility] CenterUrine leukocyte esterase detection by ztbcqdhh8717-02-43 08:44:00* Test Item Value Reference Range Interpretation Comments Urine Leukocyte Esterase (test code = 5799-2) NEGATIVE NEGATIVE [facility] CenterUrine nitrite lflyrljcx3860-00-66 08:44:00* Test Item Value Reference Range Interpretation Comments Urine Nitrite (test code = 27109-1) NEGATIVE NEGATIVE [facility] CenterUrine protein measurement by test strip (mass/volume)2019-09-30 08:44:00* Test Item Value Reference Range Interpretation Comments Urine Protein (test code = 5804-0) 1+ NEGATIVE [facility] CenterUrine glucose awxzlmvie6174-23-28 08:44:00* Test Item Value Reference Range Interpretation Comments Urine Glucose (UA) (test code = 2349-9) 2+ NEGATIVE [facility] CenterUrine ketones detection by automated test wsnsf4090-69-74 08:44:00* Test Item Value Reference Range Interpretation Comments Urine Ketones (test code = 55771-7) 2+ NEGATIVE [facility] CenterUrine opiates screening ntlu6726-16-98 08:44:00* Test Item Value Reference Range Interpretation Comments Urine Opiates Screen (test code = 45170-9) POSITIVE NEGATIVE This test provides only a screen. Positive results should be repeated by a confi rmatory test.[facility] CenterBarbiturates screen, urine 2019-09-30 08:44:00* Test Item Value Reference Range Interpretation Comments Urine Barbiturates Screen (test code = 788116426) NEGATIVE NEGA TIVE [facility] CenterUrine phencyclidine detection by screening fvqmsb1654-26-92 08:44:00* Test Item Value Reference Range Interpretation Comments Urine Phencyclidine Screen (test code = 37442-8) NEGATIVE NEGAT [place] [facility] CenterUrine amphetamines detection by screen method > 1000 ng/jT0410-28-04 08:44:00* Test Item Value Reference Range Interpretation Comments Urine Amphetamines Screen (test code = 02135-6) NEGATIVE NEGATI VE [facility] CenterFluoroscopic procedure less than one hour wofpghkv2038-03-40 08:44:00* Test Item Value Reference Range Interpretation Comments Urine Methamphetamines Screen (test code = Urine Metha mphetamines Screen) NEGATIVE NEGATIVE [facility] CenterUrine benzodiazepines detection by screening upqqdj1355-20-55 08:44:00* Test Item Value Reference Range Interpretation Comments Urine Benzodiazepines Screen (test code = 28946-9) POSITIVE NEG ATIVE This test provides only a screen. Positive results should be repeated by a confi rmatory test.[facility] CenterUrine cocaine measurement (mass/volume)2019-09-30 08:44:00* Test Item Value Reference Range Interpretation Comments Urine Cocaine Screen (test code = 3398-5) NEGATIVE NEGATIVE [facility] CenterUrine cannabinoids detection by screening hmpeas1826-26-15 08:44:00* Test Item Value Reference Range Interpretation Comments Urine Cannabinoids Screen (test code = 12022-7) POSITIVE NEGATI VE This test provides only a screen. Positive results should be repeated by a confi rmatory test.[facility] CenterUrine methadone screen 2019-09-30 08:44:00* Test Item Value Reference Range Interpretation Comments Urine Methadone Screen (test code = 99858-3) NEGATIVE NEGATIVE THESE RESULTS ARE FOR MEDICAL TREATMENT ONLYTHIS REPORT CONTAINS UNCONFIR MED SCREENING RESULTS*POSITIVE RESULTS WILL BE CONFIRMED BY REFERENCE LAB UPON R EQUEST CUT-OFFDRUG CLASS CONCENTRATION ng/mLAmphetamines 1000Methamphetamines 1000Cocaine Metabolite 300Opiate 300Phencyc lidine 25Cannabinoid 50Barbiturates 300Benzodiazepine 300Methadone 300[facility] CenterUrine urobilinogen measurement by test strip (mass/volume)2019-09-30 08:44:00* Test Item Value Reference Range Interpretation Comments Urine Urobilinogen (test code = 69371-1) 0.2 0.2-1 [facility] CenterUrine total bilirubin measurement (mass/volume)2019-09-30 08:44:00* Test Item Value Reference Range Interpretation Comments Urine Bilirubin (test code = 1978-6) NEGATIVE NEGATIVE [facility] CenterUrine erythrocytes eifzjddlk2319-68-38 08:44:00* Test Item Value Reference Range Interpretation Comments Urine Blood (test code = 19962-3) TRACE NEGATIVE [facility] CenterAutomated urine sediment leukocyte count by microscopy (number/high power field)2019-09-30 08:44:00* Test Item Value Reference Range Interpretation Comments Urine WBC (test code = 5821-4) 21-50 0-5 [facility] CenterErythrocytes detection in urine sediment by light ytbeojqxot6651-86-45 08:44:00* Test Item Value Reference Range Interpretation Comments Urine RBC (test code = 86323-0) 6-10 0-5 [facility] CenterBacteria detection in urine sediment by light jiclblshaw0308-46-87 08:44:00* Test Item Value Reference Range Interpretation Comments Urine Bacteria (test code = 12983-8) FEW NONE [facility] CenterEpithelial cells detection in urine sediment by light aewhadpmly1272-19-64 08:44:00* Test Item Value Reference Range Interpretation Comments Urine Epithelial Cells (test code = 47014-4) RARE NONE [facility] CenterCapillary blood glucose measurement by glucometer (mass/volume)2019-09-24 07:23:00* Test Item Value Reference Range Interpretation Comments Bedside Glucose (test code = 58725-0) 83 70-120 Meter ID: [id number] Park Regional Medical CenterCapillary blood glucose measurement by glucometer (mass/volume)2019-09-24 07:23:00* Test Item Value Reference Range Interpretation Comments Bedside Glucose (test code = 26582-3) 83 70-120 Meter ID: [id number] Park Regional Medical CenterCapillary blood glucose measurement by glucometer (mass/volume)2019-09-24 07:23:00* Test Item Value Reference Range Interpretation Comments Bedside Glucose (test code = 43038-7) 83 70-120 Meter ID: [id number] Park Regional Medical CenterTroponin I measurement by highly sensitive enzyme hkjltrxymyl8881-17-56 09:58:00* Test Item Value Reference Range Interpretation Comments Troponin I (test code = 19701-7) 0.016 0-0.300 [facility] CenterTroponin I measurement by highly sensitive enzyme zabofhebypw4145-40-42 09:58:00* Test Item Value Reference Range Interpretation Comments Troponin I (test code = 90160-3) 0.016 0-0.300 [facility] CenterBlood leukocytes automated count (number/volume)2019-09-23 05:42:00* Test Item Value Reference Range Interpretation Comments White Blood Count (test code = 6690-2) 8.62 4.8-10.8 [facility] CenterBlsleepy eye medical center erythrocytes automated count (number/volume)2019-09-23 05:42:00* Test Item Value Reference Range Interpretation Comments Red Blood Count (test code = 789-8) 3.57 4.3-5.7 [facility] Centerood hemoglobin measurement (moles/volume)2019-09-23 05:42:00* Test Item Value Reference Range Interpretation Comments Hemoglobin (test code = 78620-5) 10.3 14.0-18.0 [facility] CenterAutomated blood hematocrit (volume fraction)2019-09-23 05:42:00* Test Item Value Reference Range Interpretation Comments Hematocrit (test code = 4544-3) 32.2 38.2-49.6 [facility] CenterAutomated erythrocyte mean corpuscular zotpax4084-93-61 05:42:00* Test Item Value Reference Range Interpretation Comments Mean Corpuscular Volume (test code = 787-2) 90.2 81-99 [facility] CenterAutomated erythrocyte mean corpuscular hemoglobin (mass per erythrocyte)2019-09-23 05:42:00* Test Item Value Reference Range Interpretation Comments Mean Corpuscular Hemoglobin (test code = 785-6) 28.9 28-32 [facility] CenterAutomated erythrocyte mean corpuscular hemoglobin concentration measurement (mass/volume)2019-09-23 05:42:00* Test Item Value Reference Range Interpretation Comments Mean Corpuscular Hemoglobin Concent (test code = 786-4) 32.0 31-35 [facility] CenterRDW BfmPj-Zud1861-28-26 05:42:00* Test Item Value Reference Range Interpretation Comments Red Cell Distribution Width (test code = 07719-9) 13.7 11.7 -14.4 [facility] CenterAutomated blood platelet count (count/volume)2019-09-23 05:42:00* Test Item Value Reference Range Interpretation Comments Platelet Count (test code = 777-3) 183 140-360 [facility] CenterAutomated blood segmented neutrophil count as percentage of total xeajhjcbbk3146-83-87 05:42:00* Test Item Value Reference Range Interpretation Comments Neutrophils (%) (Auto) (test code = 60988-5) 78.4 38.7-80.0 [facility] CenterAutomated blood lymphocyte count as percentage ot total vxolzitrwp9853-67-82 05:42:00* Test Item Value Reference Range Interpretation Comments Lymphocytes (%) (Auto) (test code = 736-9) 13.1 18.0-39.1 [facility] CenterAutomated blood monocyte count as percentage of total dodzovzmwg4259-24-99 05:42:00* Test Item Value Reference Range Interpretation Comments Monocytes (%) (Auto) (test code = 5905-5) 7.7 4.4-11.3 [facility] CenterAutomated blood eosinophil count as percentage of total ustkhnmjdq5002-25-94 05:42:00* Test Item Value Reference Range Interpretation Comments Eosinophils (%) (Auto) (test code = 713-8) 0.1 0.0-6.0 [facility] CenterAutomated blood basophil count as percentage of total ttamstfogp6482-96-95 05:42:00* Test Item Value Reference Range Interpretation Comments Basophils (%) (Auto) (test code = 706-2) 0.5 0.0-1.0 [facility] CenterFluoroscopic procedure less than one hour fjlszfbf7940-53-70 05:42:00* Test Item Value Reference Range Interpretation Comments IM GRANULOCYTES % (test code = IM GRANULOCYTES %) 0.2 0.0- 1.0 [facility] CenterAutomated blood neutrophil count 2019-09-23 05:42:00* Test Item Value Reference Range Interpretation Comments Neutrophils # (Auto) (test code = 751-8) 6.8 2.1-6.9 [facility] CenterBlood lymphocytes count (number/volume) 2019-09-23 05:42:00* Test Item Value Reference Range Interpretation Comments Lymphocytes # (Auto) (test code = 81754-5) 1.1 1.0-3.2 [facility] CenterBlood monocytes automated count (number/volume)2019-09-23 05:42:00* Test Item Value Reference Range Interpretation Comments Monocytes # (Auto) (test code = 742-7) 0.7 0.2-0.8 [facility] CenterAutomated blood eosinophil count 2019-09-23 05:42:00* Test Item Value Reference Range Interpretation Comments Eosinophils # (Auto) (test code = 711-2) 0.0 0.0-0.4 [facility] CenterAutomated blood basophil count (count/volume)2019-09-23 05:42:00* Test Item Value Reference Range Interpretation Comments Basophils # (Auto) (test code = 704-7) 0.0 0.0-0.1 [facility] CenterFluoroscopic procedure less than one hour lykfkyek6293-33-31 05:42:00* Test Item Value Reference Range Interpretation Comments Absolute Immature Granulocyte (auto (zeenat t code = Absolute Immature Granulocyte (auto) 0.02 0-0.1 [facility] or plasma sodium measurement (moles/volume)2019-09-23 05:42:00* Test Item Value Reference Range Interpretation Comments Sodium Level (test code = 2951-2) 138 136-145 [facility]ererum or plasma potassium measurement (moles/volume)2019-09-23 05:42:00* Test Item Value Reference Range Interpretation Comments Potassium Level (test code = 2823-3) 3.6 3.5-5.1 [facility]ererum or plasma chloride measurement (moles/volume)2019-09-23 05:42:00* Test Item Value Reference Range Interpretation Comments Chloride Level (test code = 2075-0) 101 98-107 [facility]ererum or plasma carbon dioxide, total measurement (moles/volume)2019-09-23 05:42:00* Test Item Value Reference Range Interpretation Comments Carbon Dioxide Level (test code = 2028-9) 28 22-29 [facility]ererum or plasma anion qzb8228-59-90 05:42:00* Test Item Value Reference Range Interpretation Comments Anion Gap (test code = 87499-1) 12.6 8-16 [facility]ererum or plasma urea nitrogen measurement (mass/volume)2019-09-23 05:42:00* Test Item Value Reference Range Interpretation Comments Blood Urea Nitrogen (test code = 3094-0) 22 7-26 [facility]ererum or plasma creatinine measurement (mass/volume)2019-09-23 05:42:00* Test Item Value Reference Range Interpretation Comments Creatinine (test code = 2160-0) 1.16 0.72-1.25 [facility]ererum or plasma urea nitrogen/creatinine mass ncxqo0044-29-61 05:42:00* Test Item Value Reference Range Interpretation Comments BUN/Creatinine Ratio (test code = 3097-3) 19 6-25 [facility] CenterEstimated glomerular filtration rate (GFR) zjobirykdeygl9679-34-64 05:42:00* Test Item Value Reference Range Interpretation Comments Estimat Glomerular Filtration Rate (test code = 039289101) > 60 >60 Ranges were taken from the National Kidney Disease Education Program and the [facility] Foundation literature.Reference ranges:60 or greater: Uofmun58-13 ( for 3 consecutive months): Chronic kidney disease 15 or less: Kidney failureCedar Park Regional Medical CenterGlucose taljfkwijoq4548-14-31 05:42:00* Test Item Value Reference Range Interpretation Comments Glucose Level (test code = GCY7293) 266 74-118 [facility]ererum or plasma calcium measurement (mass/volume)2019-09-23 05:42:00* Test Item Value Reference Range Interpretation Comments Calcium Level (test code = 02217-2) 8.3 8.4-10.2 [facility]ererum or plasma total bilirubin measurement (mass/volume)2019-09-23 05:42:00* Test Item Value Reference Range Interpretation Comments Total Bilirubin (test code = 1975-2) 0.4 0.2-1.2 [facility] CenterFluoroscopic procedure less than one hour mugvyamx2733-17-32 05:42:00* Test Item Value Reference Range Interpretation Comments Aspartate Amino Transf (AST/SGOT) (test code = Aspartate Amino Transf (AST/SGOT)) 14 5-34 [facility]ererum or plasma alanine aminotransferase measurement (enzymatic activity/volume)2019-09-23 05:42:00* Test Item Value Reference Range Interpretation Comments Alanine Aminotransferase (ALT/SGPT) (test code = 1742-6) 14 0-55 [facility]ererum or plasma protein measurement (mass/volume)2019-09-23 05:42:00* Test Item Value Reference Range Interpretation Comments Total Protein (test code = 2885-2) 6.2 6.5-8.1 [facility]ererum or plasma albumin measurement (mass/volume)2019-09-23 05:42:00* Test Item Value Reference Range Interpretation Comments Albumin (test code = 1751-7) 3.4 3.5-5.0 [facility] CenterPlasma globulin measurement (mass/volume) 2019-09-23 05:42:00* Test Item Value Reference Range Interpretation Comments Globulin (test code = 69597-8) 2.8 2.3-3.5 [facility]ererum or plasma albumin/globulin mass obcgg0432-87-31 05:42:00* Test Item Value Reference Range Interpretation Comments Albumin/Globulin Ratio (test code = 1759-0) 1.2 0.8-2.0 [facility]ererum or plasma alkaline phosphatase measurement (enzymatic activity/volume)2019-09-23 05:42:00* Test Item Value Reference Range Interpretation Comments Alkaline Phosphatase (test code = 6768-6) 108 40-150 [facility] CenterBlood leukocytes automated count (number/volume)2019-09-23 05:42:00* Test Item Value Reference Range Interpretation Comments White Blood Count (test code = 6690-2) 8.62 4.8-10.8 [facility] CenterBlood erythrocytes automated count (number/volume)2019-09-23 05:42:00* Test Item Value Reference Range Interpretation Comments Red Blood Count (test code = 789-8) 3.57 4.3-5.7 [facility] CenterBlood hemoglobin measurement (moles/volume)2019-09-23 05:42:00* Test Item Value Reference Range Interpretation Comments Hemoglobin (test code = 95188-4) 10.3 14.0-18.0 [facility] CenterAutomated blood hematocrit (volume fraction)2019-09-23 05:42:00* Test Item Value Reference Range Interpretation Comments Hematocrit (test code = 4544-3) 32.2 38.2-49.6 [facility] CenterAutomated erythrocyte mean corpuscular riuwne5775-45-67 05:42:00* Test Item Value Reference Range Interpretation Comments Mean Corpuscular Volume (test code = 787-2) 90.2 81-99 [facility] CenterAutomated erythrocyte mean corpuscular hemoglobin (mass per erythrocyte)2019-09-23 05:42:00* Test Item Value Reference Range Interpretation Comments Mean Corpuscular Hemoglobin (test code = 785-6) 28.9 28-32 [facility] CenterAutomated erythrocyte mean corpuscular hemoglobin concentration measurement (mass/volume)2019-09-23 05:42:00* Test Item Value Reference Range Interpretation Comments Mean Corpuscular Hemoglobin Concent (test code = 786-4) 32.0 31-35 [facility] CenterRDW RbtMq-Zzs2550-61-26 05:42:00* Test Item Value Reference Range Interpretation Comments Red Cell Distribution Width (test code = 52602-0) 13.7 11.7 -14.4 [facility] CenterAutomated blood platelet count (count/volume)2019-09-23 05:42:00* Test Item Value Reference Range Interpretation Comments Platelet Count (test code = 777-3) 183 140-360 [facility] segmented neutrophil count as percentage of total bgnghzfxum8709-02-89 05:42:00* Test Item Value Reference Range Interpretation Comments Neutrophils (%) (Auto) (test code = 96368-1) 78.4 38.7-80.0 [facility] CenterAutatrium health carolin[facility] rehabilitation charlotteed blood lymphocyte count as percentage ot total cfbkvkzpwx3980-69-74 05:42:00* Test Item Value Reference Range Interpretation Comments Lymphocytes (%) (Auto) (test code = 736-9) 13.1 18.0-39.1 [facility] CenterAutomated blood monocyte count as percentage of total nuibxxbdlo3372-72-76 05:42:00* Test Item Value Reference Range Interpretation Comments Monocytes (%) (Auto) (test code = 5905-5) 7.7 4.4-11.3 [facility] CenterAutomated blood eosinophil count as percentage of total htrkgjpols2059-27-28 05:42:00* Test Item Value Reference Range Interpretation Comments Eosinophils (%) (Auto) (test code = 713-8) 0.1 0.0-6.0 [facility] CenterAutomated blood basophil count as percentage of total mwyzxjefsy6499-36-71 05:42:00* Test Item Value Reference Range Interpretation Comments Basophils (%) (Auto) (test code = 706-2) 0.5 0.0-1.0 [facility] CenterFluoroscopic procedure less than one hour qtqvenmm8462-59-66 05:42:00* Test Item Value Reference Range Interpretation Comments IM GRANULOCYTES % (test code = IM GRANULOCYTES %) 0.2 0.0- 1.0 [facility] CenterAutomated blood neutrophil count 2019-09-23 05:42:00* Test Item Value Reference Range Interpretation Comments Neutrophils # (Auto) (test code = 751-8) 6.8 2.1-6.9 [facility] CenterBlood lymphocytes count (number/volume) 2019-09-23 05:42:00* Test Item Value Reference Range Interpretation Comments Lymphocytes # (Auto) (test code = 29075-0) 1.1 1.0-3.2 [facility] CenterBlood monocytes automated count (number/volume)2019-09-23 05:42:00* Test Item Value Reference Range Interpretation Comments Monocytes # (Auto) (test code = 742-7) 0.7 0.2-0.8 [facility] CenterAutomated blood eosinophil count 2019-09-23 05:42:00* Test Item Value Reference Range Interpretation Comments Eosinophils # (Auto) (test code = 711-2) 0.0 0.0-0.4 [facility] CenterAutomated blood basophil count (count/volume)2019-09-23 05:42:00* Test Item Value Reference Range Interpretation Comments Basophils # (Auto) (test code = 704-7) 0.0 0.0-0.1 [facility] CenterFluoroscopic procedure less than one hour hjgxkqko5186-02-82 05:42:00* Test Item Value Reference Range Interpretation Comments Absolute Immature Granulocyte (auto (zeenat t code = Absolute Immature Granulocyte (auto) 0.02 0-0.1 [facility]ererum or plasma sodium measurement (moles/volume)2019-09-23 05:42:00* Test Item Value Reference Range Interpretation Comments Sodium Level (test code = 2951-2) 138 136-145 [facility]ererum or plasma potassium measurement (moles/volume)2019-09-23 05:42:00* Test Item Value Reference Range Interpretation Comments Potassium Level (test code = 2823-3) 3.6 3.5-5.1 [facility]ererum or plasma chloride measurement (moles/volume)2019-09-23 05:42:00* Test Item Value Reference Range Interpretation Comments Chloride Level (test code = 2075-0) 101 98-107 [facility]ererum or plasma carbon dioxide, total measurement (moles/volume)2019-09-23 05:42:00* Test Item Value Reference Range Interpretation Comments Carbon Dioxide Level (test code = 2028-9) 28 22-29 [facility]ererum or plasma anion hjd7918-17-17 05:42:00* Test Item Value Reference Range Interpretation Comments Anion Gap (test code = 43834-3) 12.6 8-16 [facility]ererum or plasma urea nitrogen measurement (mass/volume)2019-09-23 05:42:00* Test Item Value Reference Range Interpretation Comments Blood Urea Nitrogen (test code = 3094-0) 22 7-26 [facility]ererum or plasma creatinine measurement (mass/volume)2019-09-23 05:42:00* Test Item Value Reference Range Interpretation Comments Creatinine (test code = 2160-0) 1.16 0.72-1.25 [facility]ererum or plasma urea nitrogen/creatinine mass yuusy7191-71-18 05:42:00* Test Item Value Reference Range Interpretation Comments BUN/Creatinine Ratio (test code = 3097-3) 19 6-25 [facility] CenterEstimated glomerular filtration rate (GFR) colqqlfmmjgvq0959-50-81 05:42:00* Test Item Value Reference Range Interpretation Comments Estimat Glomerular Filtration Rate (test code = 224049555) > 60 >60 Ranges were taken from the National Kidney Disease Education Program and the [facility] Kidney Foundation literature.Reference ranges:60 or greater: Xxuqob36-86 ( for 3 consecutive months): Chronic kidney disease 15 or less: Kidney failureCedar Park Regional Medical CenterGlucose kcrfidhsecv3984-62-70 05:42:00* Test Item Value Reference Range Interpretation Comments Glucose Level (test code = VEQ0613) 266 74-118 [facility]ererum or plasma calcium measurement (mass/volume)2019-09-23 05:42:00* Test Item Value Reference Range Interpretation Comments Calcium Level (test code = 00004-3) 8.3 8.4-10.2 [facility]ererum or plasma total bilirubin measurement (mass/volume)2019-09-23 05:42:00* Test Item Value Reference Range Interpretation Comments Total Bilirubin (test code = 1975-2) 0.4 0.2-1.2 [facility] CenterFluoroscopic procedure less than one hour vqmcpxda6063-65-33 05:42:00* Test Item Value Reference Range Interpretation Comments Aspartate Amino Transf (AST/SGOT) (test code = Aspartate Amino Transf (AST/SGOT)) 14 5-34 [facility]ererum or plasma alanine aminotransferase measurement (enzymatic activity/volume)2019-09-23 05:42:00* Test Item Value Reference Range Interpretation Comments Alanine Aminotransferase (ALT/SGPT) (test code = 1742-6) 14 0-55 [facility]ererum or plasma protein measurement (mass/volume)2019-09-23 05:42:00* Test Item Value Reference Range Interpretation Comments Total Protein (test code = 2885-2) 6.2 6.5-8.1 [facility]ererum or plasma albumin measurement (mass/volume)2019-09-23 05:42:00* Test Item Value Reference Range Interpretation Comments Albumin (test code = 1751-7) 3.4 3.5-5.0 [facility] CenterPlasma globulin measurement (mass/volume) 2019-09-23 05:42:00* Test Item Value Reference Range Interpretation Comments Globulin (test code = 73812-8) 2.8 2.3-3.5 [facility]ererum or plasma albumin/globulin mass xdqpo0749-57-46 05:42:00* Test Item Value Reference Range Interpretation Comments Albumin/Globulin Ratio (test code = 1759-0) 1.2 0.8-2.0 [facility]ererum or plasma alkaline phosphatase measurement (enzymatic activity/volume)2019-09-23 05:42:00* Test Item Value Reference Range Interpretation Comments Alkaline Phosphatase (test code = 6768-6) 108 40-150 [facility]:59:00 [facility] [address] [place] [address] Patient Name: BREE LINDSAY MR #: [id number] : 1975 Age/Sex: 43/M Req #: [id number] Adm Physician: RUSLAN CARTER MD Ordered by: RUSLAN CARTER MD Re port #: [id number] Location: MED/SURG3 Room/ Bed: [facility] Procedure: [id number] DX/ABDOMEN-1V IEW (KUB) Exam Date: 09/22/19 Exam [...] MADSEN MD on 09/22/19 1400 Transcribed By: PUALA on 09/21 1400 COPY TO: RUSLAN CARTER MD Capillary blood glucose measurement by glucometer (mass/volume)2019-08-25 11:40:00* Test Item Value Reference Range Interpretation Comments Bedside Glucose (test code = 99593-8) 179 70-120 Meter ID: [id number] [facility] CenterCapillary blood glucose measurement by glucometer (mass/volume)2019-08-25 11:40:00* Test Item Value Reference Range Interpretation Comments Bedside Glucose (test code = 65534-0) 179 70-120 Meter ID: [id number] [facility] CenterFluoroscopic procedure less than one hour qebvguje9792-91-16 13:20:00* Test Item Value Reference Range Interpretation [...] complexity tests.Testing performed by [facility] [id number] [place] [address] [phone] Director: Yuri Perry M.D.CLIA # [id number] [facility] Fluoroscopic procedure less than one hour paubfasn1644-51-51 13:20:00* Test Item Value Reference Range Interpretation [...] complexity tests.Testing performed by [facility] [address] [phone] Director: Yuir Perry M.D.CLIA # [id number] [facility] Fluoroscopic procedure less than one hour dmqazeyo3924-14-79 13:20:00* Test Item Value Reference Range Interpretation [...] complexity tests.Testing performed by [facility] [address] [phone] Director: Yuri Perry M.D.CLIA # [id number] [facility] Fluoroscopic procedure less than one hour hicplchd7440-29-29 13:20:00* Test Item Value Reference Range Interpretation [...] complexity tests.Testing performed by [facility] [address] [place], [place] [phone] Director: Yuri Perry M.D.CLIA # [id number] [facility] Fluoroscopic procedure less than one hour hrgfiapl5083-48-11 13:20:00* Test Item Value Reference Range Interpretation [...] complexity tests.Testing performed by [facility] [address] [place], [place] [phone] Director: Yuri Perry M.D.CLIA # [id number] Park Regional [facility] Center Capillary blood glucose measurement by glucometer (mass/volume)2019-07-24 11:15:00* Test Item Value Reference Range Interpretation Comments Bedside Glucose (test code = 78751-8) 145 70-120 Meter ID: [id number]. Joseph Medical CenterBlood leukocytes automated count (number/volume)2019-07-24 06:10:00* Test Item Value Reference Range Interpretation Comments White Blood Count (test code = 6690-2) 6.43 4.8-10.8 [facility] CenterBlood erythrocytes automated count (number/volume)2019-07-24 06:10:00* Test Item Value Reference Range Interpretation Comments Red Blood Count (test code = 789-8) 3.29 4.3-5.7 [facility] CenterBlood hemoglobin measurement (moles/volume)2019-07-24 06:10:00* Test Item Value Reference Range Interpretation Comments Hemoglobin (test code = 17281-5) 9.4 14.0-18.0 [facility] CenterAutomated blood hematocrit (volume fraction)2019-07-24 06:10:00* Test Item Value Reference Range Interpretation Comments Hematocrit (test code = 4544-3) 29.7 38.2-49.6 [facility] CenterAutomated erythrocyte mean corpuscular ccdvuv1490-29-63 06:10:00* Test Item Value Reference Range Interpretation Comments Mean Corpuscular Volume (test code = 787-2) 90.3 81-99 [facility] CenterAutomated erythrocyte mean corpuscular hemoglobin (mass per erythrocyte)2019-07-24 06:10:00* Test Item Value Reference Range Interpretation Comments Mean Corpuscular Hemoglobin (test code = 785-6) 28.6 28-32 [facility] CenterAutomated erythrocyte mean corpuscular hemoglobin concentration measurement (mass/volume)2019-07-24 06:10:00* Test Item Value Reference Range Interpretation Comments Mean Corpuscular Hemoglobin Concent (test code = 786-4) 31.6 31-35 [facility] CenterRDW BnePo-Iqf1686-68-26 06:10:00* Test Item Value Reference Range Interpretation Comments Red Cell Distribution Width (test code = 13912-4) 14.5 11.7 -14.4 [facility] CenterAutomated blood platelet count (count/volume)2019-07-24 06:10:00* Test Item Value Reference Range Interpretation Comments Platelet Count (test code = 777-3) 132 140-360 [facility] CenterAutatrium health [facility]olin[facility] rehabilitation charlotteed blood segmented neutrophil count as percentage of total lxyxhteszr6831-23-43 06:10:00* Test Item Value Reference Range Interpretation Comments Neutrophils (%) (Auto) (test code = 23056-2) 61.3 38.7-80.0 [facility] CenterAutomated blood lymphocyte count as percentage ot total qqbvvsqwgm6454-86-69 06:10:00* Test Item Value Reference Range Interpretation Comments Lymphocytes (%) (Auto) (test code = 736-9) 24.9 18.0-39.1 [facility] CenterAutomated blood monocyte count as percentage of total htdtxblbld5719-27-16 06:10:00* Test Item Value Reference Range Interpretation Comments Monocytes (%) (Auto) (test code = 5905-5) 10.0 4.4-11.3 [facility] CenterAutomated blood eosinophil count as percentage of total pluzkawupw5167-88-44 06:10:00* Test Item Value Reference Range Interpretation Comments Eosinophils (%) (Auto) (test code = 713-8) 2.6 0.0-6.0 [facility] CenterAutomated blood basophil count as percentage of total qeflshovea1024-67-44 06:10:00* Test Item Value Reference Range Interpretation Comments Basophils (%) (Auto) (test code = 706-2) 0.9 0.0-1.0 [facility] CenterFluoroscopic procedure less than one hour cmuljjel6068-71-86 06:10:00* Test Item Value Reference Range Interpretation Comments IM GRANULOCYTES % (test code = IM GRANULOCYTES %) 0.3 0.0- 1.0 [facility] CenterAutomated blood neutrophil count 2019-07-24 06:10:00* Test Item Value Reference Range Interpretation Comments Neutrophils # (Auto) (test code = 751-8) 3.9 2.1-6.9 [facility] CenterBlood lymphocytes count (number/volume) 2019-07-24 06:10:00* Test Item Value Reference Range Interpretation Comments Lymphocytes # (Auto) (test code = 70443-1) 1.6 1.0-3.2 [facility] CenterBlsleepy eye [facility] monocytes automated count (number/volume)2019-07-24 06:10:00* Test Item Value Reference Range Interpretation Comments Monocytes # (Auto) (test code = 742-7) 0.6 0.2-0.8 [facility] CenterAutomated blood eosinophil count 2019-07-24 06:10:00* Test Item Value Reference Range Interpretation Comments Eosinophils # (Auto) (test code = 711-2) 0.2 0.0-0.4 [facility] CenterAutomated blood basophil count (count/volume)2019-07-24 06:10:00* Test Item Value Reference Range Interpretation Comments Basophils # (Auto) (test code = 704-7) 0.1 0.0-0.1 [facility] CenterFluoroscopic procedure less than one hour tpvuztta1937-27-53 06:10:00* Test Item Value Reference Range Interpretation Comments Absolute Immature Granulocyte (auto (zeenat t code = Absolute Immature Granulocyte (auto) 0.02 0-0.1 [facility]ererum or plasma sodium measurement (moles/volume)2019-07-24 06:10:00* Test Item Value Reference Range Interpretation Comments Sodium Level (test code = 2951-2) 136 136-145 [facility] Centererum or plasma potassium measurement (moles/volume)2019-07-24 06:10:00* Test Item Value Reference Range Interpretation Comments Potassium Level (test code = 2823-3) 3.7 3.5-5.1 [facility] Centererum or plasma chloride measurement (moles/volume)2019-07-24 06:10:00* Test Item Value Reference Range Interpretation Comments Chloride Level (test code = 2075-0) 106 98-107 [facility] or plasma carbon dioxide, total measurement (moles/volume)2019-07-24 06:10:00* Test Item Value Reference Range Interpretation Comments Carbon Dioxide Level (test code = 2028-9) 23 22-29 [facility]ererum or plasma anion [id number] 06:10:00* Test Item Value Reference Range Interpretation Comments Anion Gap (test code = 43143-9) 10.7 8-16 [facility]ererum or plasma urea nitrogen measurement (mass/volume)2019-07-24 06:10:00* Test Item Value Reference Range Interpretation Comments Blood Urea Nitrogen (test code = 3094-0) 13 7-26 [facility]ererum or plasma creatinine measurement (mass/volume)2019-07-24 06:10:00* Test Item Value Reference Range Interpretation Comments Creatinine (test code = 2160-0) 1.24 0.72-1.25 [facility]rum or plasma urea nitrogen/creatinine mass [id number] 06:10:00* Test Item Value Reference Range Interpretation Comments BUN/Creatinine Ratio (test code = 3097-3) 10 6-25 [facility] CenterEstimated glomerular filtration rate (GFR) piytbimomrlab2637-08-66 06:10:00* Test Item Value Reference Range Interpretation Comments Estimat Glomerular Filtration Rate (test code = 249120987) > 60 >60 Ranges were taken from the National Kidney Disease Education Program and the [facility] Foundation literature.Reference ranges:60 or greater: [id number] ( for 3 consecutive months): Chronic kidney disease 15 or less: Kidney failureC[facility] Park [facility] Medical CenterGlucose nqfwzxxhfuu0352-09-67 06:10:00* Test Item Value Reference Range Interpretation Comments Glucose Level (test code = UKS7868) 148 74-118 [facility]rum or plasma calcium measurement (mass/volume)2019-07-24 06:10:00* Test Item Value Reference Range Interpretation Comments Calcium Level (test code = 23952-5) 8.6 8.4-10.2 [facility]ererum or plasma total bilirubin measurement (mass/volume)2019-07-24 06:10:00* Test Item Value Reference Range Interpretation Comments Total Bilirubin (test code = 1975-2) 0.5 0.2-1.2 [facility] CenterFluoroscopic procedure less than one hour naxezqgx2026-44-56 06:10:00* Test Item Value Reference Range Interpretation Comments Aspartate Amino Transf (AST/SGOT) (test code = Aspartate Amino Transf (AST/SGOT)) 14 5-34 [facility] or plasma alanine aminotransferase measurement (enzymatic activity/volume)2019-07-24 06:10:00* Test Item Value Reference Range Interpretation Comments Alanine Aminotransferase (ALT/SGPT) (test code = 1742-6) 15 0-55 [facility]ererum or plasma protein measurement (mass/volume)2019-07-24 06:10:00* Test Item Value Reference Range Interpretation Comments Total Protein (test code = 2885-2) 6.2 6.5-8.1 [facility]ererum or plasma albumin measurement (mass/volume)2019-07-24 06:10:00* Test Item Value Reference Range Interpretation Comments Albumin (test code = 1751-7) 3.1 3.5-5.0 [facility] CenterPlasma globulin measurement (mass/volume) 2019-07-24 06:10:00* Test Item Value Reference Range Interpretation Comments Globulin (test code = 35209-9) 3.1 2.3-3.5 [facility]ererum or plasma albumin/globulin mass [id number] 06:10:00* Test Item Value Reference Range Interpretation Comments Albumin/Globulin Ratio (test code = 1759-0) 1.0 0.8-2.0 [facility]ererum or plasma alkaline phosphatase measurement (enzymatic activity/volume)2019-07-24 06:10:00* Test Item Value Reference Range Interpretation Comments Alkaline Phosphatase (test code = 6768-6) 106 40-150 [facility]ererum or plasma amylase measurement (enzymatic activity/volume)2019-07-24 06:10:00* Test Item Value Reference Range Interpretation Comments Amylase Level (test code = 1798-8) 36 25-125 [facility]ererum or plasma lipase measurement (enzymatic activity/volume)2019-07-24 06:10:00* Test Item Value Reference Range Interpretation Comments Lipase (test code = 3040-3) < 4 8-78 [facility] CenterBlood leukocytes automated count (number/volume)2019-07-24 06:10:00* Test Item Value Reference Range Interpretation Comments White Blood Count (test code = 6690-2) 6.43 4.8-10.8 [facility] CenterBlood erythrocytes automated count (number/volume)2019-07-24 06:10:00* Test Item Value Reference Range Interpretation Comments Red Blood Count (test code = 789-8) 3.29 4.3-5.7 [facility] CenterBlood hemoglobin measurement (moles/volume)2019-07-24 06:10:00* Test Item Value Reference Range Interpretation Comments Hemoglobin (test code = 72715-1) 9.4 14.0-18.0 [facility] CenterAutomated blood hematocrit (volume fraction)2019-07-24 06:10:00* Test Item Value Reference Range Interpretation Comments Hematocrit (test code = 4544-3) 29.7 38.2-49.6 [facility] CenterAutomated erythrocyte mean corpuscular drawms1409-59-14 06:10:00* Test Item Value Reference Range Interpretation Comments Mean Corpuscular Volume (test code = 787-2) 90.3 81-99 [facility] CenterAutomated erythrocyte mean corpuscular hemoglobin (mass per erythrocyte)2019-07-24 06:10:00* Test Item Value Reference Range Interpretation Comments Mean Corpuscular Hemoglobin (test code = 785-6) 28.6 28-32 [facility] CenterAutomated erythrocyte mean corpuscular hemoglobin concentration measurement (mass/volume)2019-07-24 06:10:00* Test Item Value Reference Range Interpretation Comments Mean Corpuscular Hemoglobin Concent (test code = 786-4) 31.6 31-35 [facility] CenterRDW LkyMv-Ucc3863-35-26 06:10:00* Test Item Value Reference Range Interpretation Comments Red Cell Distribution Width (test code = 82586-6) 14.5 11.7 -14.4 [facility] CenterAutomated blood platelet count (count/volume)2019-07-24 06:10:00* Test Item Value Reference Range Interpretation Comments Platelet Count (test code = 777-3) 132 140-360 [facility] CenterAutomated blood segmented neutrophil count as percentage of total esweuztgku9556-04-46 06:10:00* Test Item Value Reference Range Interpretation Comments Neutrophils (%) (Auto) (test code = 86978-3) 61.3 38.7-80.0 [facility] CenterAutomated blood lymphocyte count as percentage ot total xfganaumdg2187-54-57 06:10:00* Test Item Value Reference Range Interpretation Comments Lymphocytes (%) (Auto) (test code = 736-9) 24.9 18.0-39.1 [facility] CenterAutomated blood monocyte count as percentage of total felnvxtyoy7393-97-01 06:10:00* Test Item Value Reference Range Interpretation Comments Monocytes (%) (Auto) (test code = 5905-5) 10.0 4.4-11.3 [facility] CenterAutomated blood eosinophil count as percentage of total kzipgwqneq6922-31-92 06:10:00* Test Item Value Reference Range Interpretation Comments Eosinophils (%) (Auto) (test code = 713-8) 2.6 0.0-6.0 [facility] CenterAutomated blood basophil count as percentage of total urpftdhtaa6789-71-79 06:10:00* Test Item Value Reference Range Interpretation Comments Basophils (%) (Auto) (test code = 706-2) 0.9 0.0-1.0 [facility] CenterFluoroscopic procedure less than one hour jkrgroth4894-93-25 06:10:00* Test Item Value Reference Range Interpretation Comments IM GRANULOCYTES % (test code = IM GRANULOCYTES %) 0.3 0.0- 1.0 [facility] CenterAutomated blood neutrophil count 2019-07-24 06:10:00* Test Item Value Reference Range Interpretation Comments Neutrophils # (Auto) (test code = 751-8) 3.9 2.1-6.9 [facility] CenterBlood lymphocytes count (number/volume) 2019-07-24 06:10:00* Test Item Value Reference Range Interpretation Comments Lymphocytes # (Auto) (test code = 14184-0) 1.6 1.0-3.2 [facility] CenterBlood monocytes automated count (number/volume)2019-07-24 06:10:00* Test Item Value Reference Range Interpretation Comments Monocytes # (Auto) (test code = 742-7) 0.6 0.2-0.8 [facility] CenterAutomated blood eosinophil count 2019-07-24 06:10:00* Test Item Value Reference Range Interpretation Comments Eosinophils # (Auto) (test code = 711-2) 0.2 0.0-0.4 [facility] CenterAutomated blood basophil count (count/volume)2019-07-24 06:10:00* Test Item Value Reference Range Interpretation Comments Basophils # (Auto) (test code = 704-7) 0.1 0.0-0.1 [facility] CenterFluoroscopic procedure less than one hour hdyjxhdq2414-67-73 06:10:00* Test Item Value Reference Range Interpretation Comments Absolute Immature Granulocyte (auto (zeenat t code = Absolute Immature Granulocyte (auto) 0.02 0-0.1 [facility]ererum or plasma sodium measurement (moles/volume)2019-07-24 06:10:00* Test Item Value Reference Range Interpretation Comments Sodium Level (test code = 2951-2) 136 136-145 [facility]ererum or plasma potassium measurement (moles/volume)2019-07-24 06:10:00* Test Item Value Reference Range Interpretation Comments Potassium Level (test code = 2823-3) 3.7 3.5-5.1 [facility]ererum or plasma chloride measurement (moles/volume)2019-07-24 06:10:00* Test Item Value Reference Range Interpretation Comments Chloride Level (test code = 2075-0) 106 98-107 [facility]ererum or plasma carbon dioxide, total measurement (moles/volume)2019-07-24 06:10:00* Test Item Value Reference Range Interpretation Comments Carbon Dioxide Level (test code = 2028-9) 23 22-29 [facility]ererum or plasma anion [id number] 06:10:00* Test Item Value Reference Range Interpretation Comments Anion Gap (test code = 01230-2) 10.7 8-16 [facility]ererum or plasma urea nitrogen measurement (mass/volume)2019-07-24 06:10:00* Test Item Value Reference Range Interpretation Comments Blood Urea Nitrogen (test code = 3094-0) 13 7-26 [facility]ererum or plasma creatinine measurement (mass/volume)2019-07-24 06:10:00* Test Item Value Reference Range Interpretation Comments Creatinine (test code = 2160-0) 1.24 0.72-1.25 [facility]ererum or plasma urea nitrogen/creatinine mass httlo6997-70-03 06:10:00* Test Item Value Reference Range Interpretation Comments BUN/Creatinine Ratio (test code = 3097-3) 10 6-25 [facility] CenterEstimated glomerular filtration rate (GFR) sjglxonqkohxo2296-52-18 06:10:00* Test Item Value Reference Range Interpretation Comments Estimat Glomerular Filtration Rate (test code = 352902424) > 60 >60 Ranges were taken from the National Kidney Disease Education Program and the [place] [facility] literature.Reference ranges:60 or greater: Vjknrr01-62 ( for 3 consecutive months): Chronic kidney disease 15 or less: Kidney failureC[facility] Medical CenterGlucose qwafqqdowef5622-82-01 06:10:00* Test Item Value Reference Range Interpretation Comments Glucose Level (test code = LUK1663) 148 74-118 [facility]ererum or plasma calcium measurement (mass/volume)2019-07-24 06:10:00* Test Item Value Reference Range Interpretation Comments Calcium Level (test code = 41481-8) 8.6 8.4-10.2 [facility]ererum or plasma total bilirubin measurement (mass/volume)2019-07-24 06:10:00* Test Item Value Reference Range Interpretation Comments Total Bilirubin (test code = 1975-2) 0.5 0.2-1.2 [facility] CenterFluoroscopic procedure less than one hour pwipqnpj6879-10-51 06:10:00* Test Item Value Reference Range Interpretation Comments Aspartate Amino Transf (AST/SGOT) (test code = Aspartate Amino Transf (AST/SGOT)) 14 5-34 [facility]ererum or plasma alanine aminotransferase measurement (enzymatic activity/volume)2019-07-24 06:10:00* Test Item Value Reference Range Interpretation Comments Alanine Aminotransferase (ALT/SGPT) (test code = 1742-6) 15 0-55 [facility]ererum or plasma protein measurement (mass/volume)2019-07-24 06:10:00* Test Item Value Reference Range Interpretation Comments Total Protein (test code = 2885-2) 6.2 6.5-8.1 [facility]ererum or plasma albumin measurement (mass/volume)2019-07-24 06:10:00* Test Item Value Reference Range Interpretation Comments Albumin (test code = 1751-7) 3.1 3.5-5.0 [facility] CenterPlasma globulin measurement (mass/volume) 2019-07-24 06:10:00* Test Item Value Reference Range Interpretation Comments Globulin (test code = 67042-2) 3.1 2.3-3.5 [facility]ererum or plasma albumin/globulin mass mndfr2825-14-59 06:10:00* Test Item Value Reference Range Interpretation Comments Albumin/Globulin Ratio (test code = 1759-0) 1.0 0.8-2.0 [facility]ererum or plasma alkaline phosphatase measurement (enzymatic activity/volume)2019-07-24 06:10:00* Test Item Value Reference Range Interpretation Comments Alkaline Phosphatase (test code = 6768-6) 106 40-150 [facility]ererum or plasma amylase measurement (enzymatic activity/volume)2019-07-24 06:10:00* Test Item Value Reference Range Interpretation Comments Amylase Level (test code = 1798-8) 36 25-125 [facility]ererum or plasma lipase measurement (enzymatic activity/volume)2019-07-24 06:10:00* Test Item Value Reference Range Interpretation Comments Lipase (test code = 3040-3) < 4 8-78 [facility] CenterBlood leukocytes automated count (number/volume)2019-07-24 06:10:00* Test Item Value Reference Range Interpretation Comments White Blood Count (test code = 6690-2) 6.43 4.8-10.8 [facility] CenterBlood erythrocytes automated count (number/volume)2019-07-24 06:10:00* Test Item Value Reference Range Interpretation Comments Red Blood Count (test code = 789-8) 3.29 4.3-5.7 [facility] CenterBlood hemoglobin measurement (moles/volume)2019-07-24 06:10:00* Test Item Value Reference Range Interpretation Comments Hemoglobin (test code = 03427-4) 9.4 14.0-18.0 [facility] CenterAutomated blood hematocrit (volume fraction)2019-07-24 06:10:00* Test Item Value Reference Range Interpretation Comments Hematocrit (test code = 4544-3) 29.7 38.2-49.6 [facility] CenterAutomated erythrocyte mean corpuscular goldsw2579-97-02 06:10:00* Test Item Value Reference Range Interpretation Comments Mean Corpuscular Volume (test code = 787-2) 90.3 81-99 [facility] CenterAutomated erythrocyte mean corpuscular hemoglobin (mass per erythrocyte)2019-07-24 06:10:00* Test Item Value Reference Range Interpretation Comments Mean Corpuscular Hemoglobin (test code = 785-6) 28.6 28-32 [facility] CenterAutomated erythrocyte mean corpuscular hemoglobin concentration measurement (mass/volume)2019-07-24 06:10:00* Test Item Value Reference Range Interpretation Comments Mean Corpuscular Hemoglobin Concent (test code = 786-4) 31.6 31-35 [facility] CenterRDW ZwoHf-Wlu5953-33-26 06:10:00* Test Item Value Reference Range Interpretation Comments Red Cell Distribution Width (test code = 13932-2) 14.5 11.7 -14.4 [facility] CenterAutomated blood platelet count (count/volume)2019-07-24 06:10:00* Test Item Value Reference Range Interpretation Comments Platelet Count (test code = 777-3) 132 140-360 [facility] CenterAutomated blood segmented neutrophil count as percentage of total dmjxgsmbnw7091-82-12 06:10:00* Test Item Value Reference Range Interpretation Comments Neutrophils (%) (Auto) (test code = 93147-5) 61.3 38.7-80.0 [facility] CenterAutomated blood lymphocyte count as percentage ot total vpwbkuxoyl4040-13-03 06:10:00* Test Item Value Reference Range Interpretation Comments Lymphocytes (%) (Auto) (test code = 736-9) 24.9 18.0-39.1 [facility] CenterAutomated blood monocyte count as percentage of total xsqrobdglp2499-36-05 06:10:00* Test Item Value Reference Range Interpretation Comments Monocytes (%) (Auto) (test code = 5905-5) 10.0 4.4-11.3 [facility] CenterAutomated blood eosinophil count as percentage of total pmkhcgjlzc5161-46-31 06:10:00* Test Item Value Reference Range Interpretation Comments Eosinophils (%) (Auto) (test code = 713-8) 2.6 0.0-6.[address] [facility] CenterAutom[facility] blood basophil count as percentage of total xnidwavnak9134-10-95 06:10:00* Test Item Value Reference Range Interpretation Comments Basophils (%) (Auto) (test code = 706-2) 0.9 0.0-1.0 [facility] CenterFluoroscopic procedure less than one hour upvcnsie4833-25-38 06:10:00* Test Item Value Reference Range Interpretation Comments IM GRANULOCYTES % (test code = IM GRANULOCYTES %) 0.3 0.0- 1.0 [facility] CenterAutomated blood neutrophil count 2019-07-24 06:10:00* Test Item Value Reference Range Interpretation Comments Neutrophils # (Auto) (test code = 751-8) 3.9 2.1-6.9 [facility] CenterBlood lymphocytes count (number/volume) 2019-07-24 06:10:00* Test Item Value Reference Range Interpretation Comments Lymphocytes # (Auto) (test code = 86879-1) 1.6 1.0-3.2 [facility] CenterBlood monocytes automated count (number/volume)2019-07-24 06:10:00* Test Item Value Reference Range Interpretation Comments Monocytes # (Auto) (test code = 742-7) 0.6 0.2-0.8 [facility] CenterAutomated blood eosinophil count 2019-07-24 06:10:00* Test Item Value Reference Range Interpretation Comments Eosinophils # (Auto) (test code = 711-2) 0.2 0.0-0.4 [facility] CenterAutomated blood basophil count (count/volume)2019-07-24 06:10:00* Test Item Value Reference Range Interpretation Comments Basophils # (Auto) (test code = 704-7) 0.1 0.0-0.1 [facility] CenterFluoroscopic procedure less than one hour mlwyeapf1528-48-73 06:10:00* Test Item Value Reference Range Interpretation Comments Absolute Immature Granulocyte (auto (zeenat t code = Absolute Immature Granulocyte (auto) 0.02 0-0.1 [facility]ererum or plasma sodium measurement (moles/volume)2019-07-24 06:10:00* Test Item Value Reference Range Interpretation Comments Sodium Level (test code = 2951-2) 136 136-145 [facility]ererum or plasma potassium measurement (moles/volume)2019-07-24 06:10:00* Test Item Value Reference Range Interpretation Comments Potassium Level (test code = 2823-3) 3.7 3.5-5.1 [facility]ererum or plasma chloride measurement (moles/volume)2019-07-24 06:10:00* Test Item Value Reference Range Interpretation Comments Chloride Level (test code = 2075-0) 106 98-107 [facility]ererum or plasma carbon dioxide, total measurement (moles/volume)2019-07-24 06:10:00* Test Item Value Reference Range Interpretation Comments Carbon Dioxide Level (test code = 2028-9) 23 22-29 [facility]ererum or plasma anion pxm7223-64-03 06:10:00* Test Item Value Reference Range Interpretation Comments Anion Gap (test code = 69379-2) 10.7 8-16 [facility]ererum or plasma urea nitrogen measurement (mass/volume)2019-07-24 06:10:00* Test Item Value Reference Range Interpretation Comments Blood Urea Nitrogen (test code = 3094-0) 13 7-26 [facility]ererum or plasma creatinine measurement (mass/volume)2019-07-24 06:10:00* Test Item Value Reference Range Interpretation Comments Creatinine (test code = 2160-0) 1.24 0.72-1.25 [facility]ererum or plasma urea nitrogen/creatinine mass [id number] 06:10:00* Test Item Value Reference Range Interpretation Comments BUN/Creatinine Ratio (test code = 3097-3) 10 6-25 [facility] CenterEstimated glomerular filtration rate (GFR) myjvbueyjvats3675-46-90 06:10:00* Test Item Value Reference Range Interpretation Comments Estimat Glomerular Filtration Rate (test code = 540131936) > 60 >60 Ranges were taken from the National Kidney Disease Education Program and the [facility] literature.Reference ranges:60 or greater: Fobklq48-95 ( for 3 consecutive months): Chronic kidney disease 15 or less: Kidney failureCedar Park Regional Medical CenterGlucose mwgbwnsvout8441-98-65 06:10:00* Test Item Value Reference Range Interpretation Comments Glucose Level (test code = XUC1169) 148 74-118 [facility]ererum or plasma calcium measurement (mass/volume)2019-07-24 06:10:00* Test Item Value Reference Range Interpretation Comments Calcium Level (test code = 70026-0) 8.6 8.4-10.2 [facility]ererum or plasma total bilirubin measurement (mass/volume)2019-07-24 06:10:00* Test Item Value Reference Range Interpretation Comments Total Bilirubin (test code = 1975-2) 0.5 0.2-1.2 [facility] CenterFluoroscopic procedure less than one hour iceihwry7393-32-57 06:10:00* Test Item Value Reference Range Interpretation Comments Aspartate Amino Transf (AST/SGOT) (test code = Aspartate Amino Transf (AST/SGOT)) 14 5-34 [facility]ererum or plasma alanine aminotransferase measurement (enzymatic activity/volume)2019-07-24 06:10:00* Test Item Value Reference Range Interpretation Comments Alanine Aminotransferase (ALT/SGPT) (test code = 1742-6) 15 0-55 [facility]ererum or plasma protein measurement (mass/volume)2019-07-24 06:10:00* Test Item Value Reference Range Interpretation Comments Total Protein (test code = 2885-2) 6.2 6.5-8.1 [facility]ererum or plasma albumin measurement (mass/volume)2019-07-24 06:10:00* Test Item Value Reference Range Interpretation Comments Albumin (test code = 1751-7) 3.1 3.5-5.0 [facility] CenterPlasma globulin measurement (mass/volume) 2019-07-24 06:10:00* Test Item Value Reference Range Interpretation Comments Globulin (test code = 10022-2) 3.1 2.3-3.5 [facility]ererum or plasma albumin/globulin mass zmyze8043-26-55 06:10:00* Test Item Value Reference Range Interpretation Comments Albumin/Globulin Ratio (test code = 1759-0) 1.0 0.8-2.0 [facility]ererum or plasma alkaline phosphatase measurement (enzymatic activity/volume)2019-07-24 06:10:00* Test Item Value Reference Range Interpretation Comments Alkaline Phosphatase (test code = 6768-6) 106 40-150 [facility]ererum or plasma amylase measurement (enzymatic activity/volume)2019-07-24 06:10:00* Test Item Value Reference Range Interpretation Comments Amylase Level (test code = 1798-8) 36 25-125 [facility]ererum or plasma lipase measurement (enzymatic activity/volume)2019-07-24 06:10:00* Test Item Value Reference Range Interpretation Comments Lipase (test code = 3040-3) < 4 8-78 [facility]ererum or plasma amylase measurement (enzymatic activity/volume)2019-07-24 06:10:00* Test Item Value Reference Range Interpretation Comments Amylase Level (test code = 1798-8) 36 25-125 [facility]ererum or plasma lipase measurement (enzymatic activity/volume)2019-07-24 06:10:00* Test Item Value Reference Range Interpretation Comments Lipase (test code = 3040-3) < 4 8-78 [facility] or plasma amylase measurement (enzymatic activity/volume)2019-07-24 06:10:00* Test Item Value Reference Range Interpretation Comments Amylase Level (test code = 1798-8) 36 25-125 [facility]ererum or plasma lipase measurement (enzymatic activity/volume)2019-07-24 06:10:00* Test Item Value Reference Range Interpretation Comments Lipase (test code = 3040-3) < 4 8-78 [facility] CenterFluor[facility] procedure less than one hour saiyptwf3636-14-30 12:20:00* Test Item Value Reference Range Interpretation Comments Hemoglobin A1c Percent (test code = Hemoglobin A1c Percent) 8.4 4.0-7.0 [facility] CenterFluoroscopic procedure less than one hour glaloeex5155-19-16 12:20:00* Test Item Value Reference Range Interpretation Comments Lactic Acid Level (test code = Lactic Acid Level) 0.8 0.5- 2.0 [facility] CenterFluoroscopic procedure less than one hour yltbttwo1585-11-67 12:20:00* Test Item Value Reference Range Interpretation Comments Hemoglobin A1c Percent (test code = Hemoglobin A1c Percent) 8.4 4.0-7.0 [facility] CenterFluoroscopic procedure less than one hour dstbzogd1471-27-47 12:20:00* Test Item Value Reference Range Interpretation Comments Lactic Acid Level (test code = Lactic Acid Level) 0.8 0.5- 2.0 [facility] CenterFluoroscopic procedure less than one hour wmbsgttf3666-42-33 12:20:00* Test Item Value Reference Range Interpretation Comments Hemoglobin A1c Percent (test code = Hemoglobin A1c Percent) 8.4 4.0-7.0 [facility] CenterFluoroscopic procedure less than one hour mniswxim8948-67-84 12:20:00* Test Item Value Reference Range Interpretation Comments Lactic Acid Level (test code = Lactic Acid Level) 0.8 0.5- 2.0 [facility] CenterFluoroscopic procedure less than one hour ywezeoad9075-08-56 12:20:00* Test Item Value Reference Range Interpretation Comments Hemoglobin A1c Percent (test code = Hemoglobin A1c Percent) 8.4 4.0-7.0 [facility] CenterFluoroscopic procedure less than one hour uawcxnst4433-47-75 12:20:00* Test Item Value Reference Range Interpretation Comments Lactic Acid Level (test code = Lactic Acid Level) 0.8 0.5- 2.0 [facility] CenterFluoroscopic procedure less than one hour okaynjdm9994-92-93 12:20:00* Test Item Value Reference Range Interpretation Comments Hemoglobin A1c Percent (test code = Hemoglobin A1c Percent) 8.4 4.0-7.0 [facility] CenterFluoroscopic procedure less than one hour igfoifes7856-30-37 12:20:00* Test Item Value Reference Range Interpretation Comments Lactic Acid Level (test code = Lactic Acid Level) 0.8 0.5- 2.0 [facility] CenterFluoroscopic procedure less than one hour vpeovdie0893-84-98 12:20:00* Test Item Value Reference Range Interpretation Comments Hemoglobin A1c Percent (test code = Hemoglobin A1c Percent) 8.4 4.0-7.0 [facility] CenterFluoroscopic procedure less than one hour cccgsuiw8852-75-12 12:20:00* Test Item Value Reference Range Interpretation Comments Hemoglobin A1c Percent (test code = Hemoglobin A1c Percent) 8.4 4.0-7.0 [facility] CenterCT ABD/PEL WO RQZGBAPE-CABT8091-68-25 06:46:00 [facility] [address] [address] Patient Name: BREE LINDSAY MR #: [id number] : 1975 Age/Sex: 43/M Req #: [id number] Adm Physician: Ordered by: NEIL PEREZ MD Report #: [id number] Location: [facility] Room/Bed: Procedure: [id number] HOPD/CT ABD/PEL WO CONTRAST-HOPD Exam Date: 07/23/19 Exam Time: 0619 REPORT STATUS: Sig lizette EXAM: CT Abdomen [...] COPY TO: NEIL PEREZ MD Bacterial blood wrqqzyl5399-00-32 06:44:00* Test Item Value Reference Range Interpretation Comments Blood Culture (test code = 600-7) STAPHYLOCOCCUS SP COAG NEG [facility] CenterBacterial blood rtrfcfc3576-47-19 06:44:00* Test Item Value Reference Range Interpretation Comments Blood Culture (test code = 600-7) STAPHYLOCOCCUS SP COAG NEG [facility] CenterBacterial blood crwjufu1213-31-87 06:44:00* Test Item Value Reference Range Interpretation Comments Blood Culture (test code = 600-7) STAPHYLOCOCCUS SP COAG NEG [facility] blood tqnsalr7969-57-06 06:44:00* Test Item Value Reference Range Interpretation Comments Blood Culture (test code = 600-7) STAPHYLOCOCCUS SP COAG NEG [facility] gdlvbzc8418-25-23 06:44:00* Test Item Value Reference Range Interpretation Comments Blood Culture (test code = 600-7) STAPHYLOCOCCUS SP COAG NEG [facility] blood fuhsdjg4065-88-84 06:44:00* Test Item Value Reference Range Interpretation Comments Blood Culture (test code = 600-7) STAPHYLOCOCCUS SP COAG NEG [facility] blood xcyyidc5644-01-47 06:44:00* Test Item Value Reference Range Interpretation Comments Blood Culture (test code = 600-7) STAPHYLOCOCCUS SP COAG NEG [facility] hbtuqzm7796-00-06 06:44:00* Test Item Value Reference Range Interpretation Comments Blood Culture (test code = 600-7) STAPHYLOCOCCUS SP COAG NEG [facility] Centerct[facility] blood orghtit9805-00-29 06:44:00* Test Item Value Reference Range Interpretation Comments Blood Culture (test code = 600-7) STAPHYLOCOCCUS SP COAG NEG [facility] CenterC 1 VEW - MSCK6825-83-26 06:44:00 [facility] [address] [place] [address] Patient Name: RBEE LINDSAY MR #: [id number] : 1975 Age/Sex: 43/M Req #: [id number] Adm Physician: Ordered by: NEIL PEREZ MD Report #: [id number] Location: [facility] Room/Bed: Procedure: [id number] HOPD/CXR 1 VEW - HOPD Exam Date: [...] 07/23/19645 COPY TO: NEIL PEREZ MD Blood ujscefs2694-32-58 06:05:00* Test Item Value Reference Range Interpretation Comments Blood Culture (test code = 61366173) NO GROWTH AFTER 5 DAYS, [facility] itcatkm7094-40-35 06:05:00* Test Item Value Reference Range Interpretation Comments Blood Culture (test code = 53302949) NO GROWTH AFTER 5 DAYS, FINAL REPORT [facility] yvdaxjb2115-66-22 06:05:00* Test Item Value Reference Range Interpretation Comments Blood Culture (test code = 64532828) NO GROWTH AFTER 5 DAYS, FINAL REPORT [facility] yfpcdnc5006-77-53 06:05:00* Test Item Value Reference Range Interpretation Comments Blood Culture (test code = 57521498) NO GROWTH AFTER 5 DAYS, [facility]AL REPORT [facility] zyazrxt8969-54-99 06:05:00* Test Item Value Reference Range Interpretation Comments Blood Culture (test code = 75850480) NO GROWTH AFTER 5 DAYS, [facility] odbxviq0063-80-48 06:05:00* Test Item Value Reference Range Interpretation Comments Blood Culture (test code = 40817236) NO GROWTH AFTER 5 DAYS, FINAL REPORT [facility] CenterBedside Jixwfpx1255-12-54 08:12:00* Test Item Value Reference Range Interpretation Comments Bedside Glucose (test code = 34923-7) 120 70-120 Meter ID: [id number]. [facility] Medical Centerodium Level 2019-07-10 07:06:00* Test Item Value Reference Range Interpretation Comments Sodium Level (test code = 2951-2) 139 136-145 [facility] CenterPotassium Fuxsl8324-49-78 07:06:00* Test Item Value Reference Range Interpretation Comments Potassium Level (test code = 2823-3) 3.3 3.5-5.1 L [facility] CenterChloride Phwps9818-60-35 07:06:00* Test Item Value Reference Range Interpretation Comments Chloride Level (test code = 2075-0) 102 98-107 [facility] CenterCarbon Dioxide Cjhld5949-34-48 07:06:00* Test Item Value Reference Range Interpretation Comments Carbon Dioxide Level (test code = 2028-9) 28 22-29 [facility] CenterAnion Cne7762-80-46 07:06:00* Test Item Value Reference Range Interpretation Comments Anion Gap (test code = 15107-9) 12.3 8-16 [facility] CenterBlood Urea Hcppqhot0842-27-84 07:06:00* Test Item Value Reference Range Interpretation Comments Blood Urea Nitrogen (test code = 3094-0) 31 7-26 H [facility] CenterCreatinine2020-04-12 07:06:00* Test Item Value Reference Range Interpretation Comments Creatinine (test code = 2160-0) 1.55 0.72-1.25 H [facility] CenterBUN/Creatinine Zfapq4353-51-41 07:06:00* Test Item Value Reference Range Interpretation Comments BUN/Creatinine Ratio (test code = 3097-3) 20 6-25 [facility] CenterEstimat Glomerular Filtration Rate 2019-07-10 07:06:00* Test Item Value Reference Range Interpretation Comments Estimat Glomerular Filtration Rate (test code = 588315398) 60 >60 Ranges were taken from the National Kidney Disease Education Program and the [facility] [employer] literature.Reference ranges:60 or greater: Qketit20-48 ( for 3 consecutive months): Chronic kidney disease 15 or less: Kidney failureCedar Park Regional Medical CenterGlucose Pzkzw2434-69-95 07:06:00* Test Item Value Reference Range Interpretation Comments Glucose Level (test code = IHR3648) 92 74-118 [facility] CenterCalcium Fzgkh0425-82-71 07:06:00* Test Item Value Reference Range Interpretation Comments Calcium Level (test code = 69538-2) 8.1 8.4-10.2 L [facility] CenterMagnesium Uuhgg1212-57-09 06:53:00* Test Item Value Reference Range Interpretation Comments Magnesium Level (test code = 76348-3) 1.8 1.3-2.1 [facility] CenterWhite Blood Rivxx0484-33-26 06:24:00* Test Item Value Reference Range Interpretation Comments White Blood Count (test code = 6690-2) 8.09 4.8-10.8 [facility] CenterRed Blood Cbujl8508-84-18 06:24:00* Test Item Value Reference Range Interpretation Comments Red Blood Count (test code = 789-8) 3.66 4.3-5.7 L [facility] CenterHemoglobin2020-04-12 06:24:00* Test Item Value Reference Range Interpretation Comments Hemoglobin (test code = 32186-2) 10.1 14.0-18.0 L [facility] CenterHematocrit2020-04-12 06:24:00* Test Item Value Reference Range Interpretation Comments Hematocrit (test code = 4544-3) 32.4 38.2-49.6 L [facility] CenterMean Corpuscular Ybtlyj7285-14-15 06:24:00* Test Item Value Reference Range Interpretation Comments Mean Corpuscular Volume (test code = 787-2) 88.5 81-99 [facility] CenterMean Corpuscular Chelewgfif3113-46-28 06:24:00* Test Item Value Reference Range Interpretation Comments Mean Corpuscular Hemoglobin (test code = 785-6) 27.6 28-32 L [facility] CenterMean Corpuscular Hemoglobin Concent 2019-07-10 06:24:00* Test Item Value Reference Range Interpretation Comments Mean Corpuscular Hemoglobin Concent (test code = 786-4) 31.2 31-35 [facility] CenterRed Cell Distribution Svopy8158-90-59 06:24:00* Test Item Value Reference Range Interpretation Comments Red Cell Distribution Width (test code = 33004-5) 13.8 11.7 -14.4 [facility] CenterPlatelet Ktcep8248-94-14 06:24:00* Test Item Value Reference Range Interpretation Comments Platelet Count (test code = 777-3) 191 140-360 [facility] CenterNeutrophils (%) (Auto)2019-07-10 06:24:00 * Test Item Value Reference Range Interpretation Comments Neutrophils (%) (Auto) (test code = 75317-6) 61.6 38.7-80.0 [facility] CenterLymphocytes (%) (Auto)2019-07-10 06:24:00 * Test Item Value Reference Range Interpretation Comments Lymphocytes (%) (Auto) (test code = 736-9) 26.7 18.0-39.1 [facility] CenterMonocytes (%) (Auto)2019-07-10 06:24:00* Test Item Value Reference Range Interpretation Comments Monocytes (%) (Auto) (test code = 5905-5) 10.3 4.4-11.3 [facility] CenterEosinophils (%) (Auto)2019-07-10 06:24:00 * Test Item Value Reference Range Interpretation Comments Eosinophils (%) (Auto) (test code = 713-8) 0.6 0.0-6.0 [facility] CenterBasophils (%) (Auto)2019-07-10 06:24:00* Test Item Value Reference Range Interpretation Comments Basophils (%) (Auto) (test code = 706-2) 0.6 0.0-1.0 [facility] CenterIM GRANULOCYTES %2019-07-10 06:24:00* Test Item Value Reference Range Interpretation Comments IM GRANULOCYTES % (test code = IM GRANULOCYTES %) 0.2 0.0- 1.0 [facility] CenterNeutrophils # (Auto)2019-07-10 06:24:00* Test Item Value Reference Range Interpretation Comments Neutrophils # (Auto) (test code = 751-8) 5.0 2.1-6.9 [facility] CenterLymphocytes # (Auto)2019-07-10 06:24:00* Test Item Value Reference Range Interpretation Comments Lymphocytes # (Auto) (test code = 43891-7) 2.2 1.0-3.2 [facility] CenterMonocytes # (Auto)2019-07-10 06:24:00* Test Item Value Reference Range Interpretation Comments Monocytes # (Auto) (test code = 742-7) 0.8 0.2-0.8 [facility] CenterEosinophils # (Auto)2019-07-10 06:24:00* Test Item Value Reference Range Interpretation Comments Eosinophils # (Auto) (test code = 711-2) 0.1 0.0-0.4 [facility] CenterBasophils # (Auto)2019-07-10 06:24:00* Test Item Value Reference Range Interpretation Comments Basophils # (Auto) (test code = 704-7) 0.1 0.0-0.1 [facility] CenterAbsolute Immature Granulocyte (auto 2019-07-10 06:24:00* Test Item Value Reference Range Interpretation Comments Absolute Immature Granulocyte (auto (zeenat t code = Absolute Immature Granulocyte (auto) 0.02 0-0.1 [facility] Centererum or plasma magnesium measurement (mass/volume)2019-07-10 05:32:00* Test Item Value Reference Range Interpretation Comments Magnesium Level (test code = 79337-0) 1.8 1.3-2.1 [facility] Centererum or plasma magnesium measurement (mass/volume)2019-07-10 05:32:00* Test Item Value Reference Range Interpretation Comments Magnesium Level (test code = 10088-3) 1.8 1.3-2.1 [facility] Centererum or plasma magnesium measurement (mass/volume)2019-07-10 05:32:00* Test Item Value Reference Range Interpretation Comments Magnesium Level (test code = 04708-7) 1.8 1.3-2.1 [facility] Centererum or plasma magnesium measurement (mass/volume)2019-07-10 05:32:00* Test Item Value Reference Range Interpretation Comments Magnesium Level (test code = 61328-3) 1.8 1.3-2.1 [facility] Centererum or plasma magnesium measurement (mass/volume)2019-07-10 05:32:00* Test Item Value Reference Range Interpretation Comments Magnesium Level (test code = 52923-4) 1.8 1.3-2.1 [facility] Centererum or plasma magnesium measurement (mass/volume)2019-07-10 05:32:00* Test Item Value Reference Range Interpretation Comments Magnesium Level (test code = 50084-4) 1.8 1.3-2.1 [facility] Centererum or plasma magnesium measurement (mass/volume)2019-07-10 05:32:00* Test Item Value Reference Range Interpretation Comments Magnesium Level (test code = 98346-9) 1.8 1.3-2.1 [facility] Centererum or plasma magnesium measurement (mass/volume)2019-07-10 05:32:00* Test Item Value Reference Range Interpretation Comments Magnesium Level (test code = 23918-7) 1.8 1.3-2.1 [facility] Centererum or plasma magnesium measurement (mass/volume)2019-07-10 05:32:00* Test Item Value Reference Range Interpretation Comments Magnesium Level (test code = 69881-8) 1.8 1.3-2.1 [facility] CenterGLUBED2020-02-10 08:55:00* Test Item Value Reference Range Interpretation Comments GLUBED (test code = GLUBED) 122 mg/dL 74-106 H Performed by certified raisin separator operator at [facility] VFBIHO5745-64-59 08:43:00* Test Item Value Reference Range Interpretation Comments GLUBED (test code = GLUBED) 140 mg/dL 74-106 H Performed by certified raisin separator operator at [facility] - XR SHOULDER 1 V HC4410-69-76 13:41:00 FAX: Jg Astudillo MD [phone] [place]: St: [facility] FAX: Riley Zavala [phone] Name: DAISHA,BREE [facility] : 1975 Age/S: 43/M [address] [place] [address] Unit #: [id number] Loc: [place] [address] Phys: Jg Astudillo MD Acct: [id number] Dis Date: Status: REG CLI PHONE #: [phone] Exam Date: 03/02/2019 1333 FAX #: [phone] Reason: PICC PLACEMENT EXAMS: CPT CODE: [id number] XR SHOULDER 1 [place] [address] 1 VIEW LEFT SHOULDER HISTORY: PICC line pl acement.. Left upper extremity PICC line present. Catheter tip pr ojects over the level of the inferior 3rd of the SVC. END IMPRESSION SL: [id number] at 1341 Reported and sig lizette by: Yusuf Burgos M.D. CC: Jg Astudillo MD; Zak Beckman DO Technologist: Ariane Xiong RT(R) Trnscrd Date/Time/By: 03/02/2019 (4898) : By: MilaRTB Orig Print D/T: S: 03/02/2019 (7611) PAGE 1 Signed Report [id number] 08:06:00* Test Item Value Reference Range Interpretation Comments GLUBED (test code = GLUBED) 224 mg/dL 74-106 H Performed by certified raisin separator operator at [facility] PIMOTH5543-85-44 22:57:00* Test Item Value Reference Range Interpretation Comments GLUBED (test code = GLUBED) 62 mg/dL 74-106 L Performed by certified raisin separator operator at [facility] SKEBIM2681-22-42 18:14:00* Test Item Value Reference Range Interpretation Comments GLUBED (test code = GLUBED) 158 mg/dL 74-106 H Performed by certified raisin separator operator at [facility] TTJVHA4637-08-22 11:43:00* Test Item Value Reference Range Interpretation Comments GLUBED (test code = GLUBED) 123 mg/dL 74-106 H Performed by certified raisin separator operator at [facility] BASIC METABOLIC LJUGP5967-65-01 11:04:00* Test Item Value Reference Range Interpretation [...] CA) 8.5 mg/dL 8.5-10.1 N BASIC METABOLIC [id number] 10:55:00* Test Item Value Reference Range Interpretation [...] code = CA) mg/dL 8.5-10.1 CBC W/AUTO [id number] 10:13:00* Test Item Value Reference Range Interpretation [...] code = NRBC#) 0.00 K/mm3 0.0-0.1 N ILVBSV2170-98-43 08:19:00* Test Item Value Reference Range Interpretation Comments GLUBED (test code = GLUBED) 81 mg/dL 74-106 N Performed by certified raisin separator operator at [facility] TMYUKA2785-33-51 22:30:00* Test Item Value Reference Range Interpretation Comments GLUBED (test code = GLUBED) 243 mg/dL 74-106 H Performed by certified raisin separator operator at [facility] IZYPHY5098-96-64 17:17:00* Test Item Value Reference Range Interpretation Comments GLUBED (test code = GLUBED) 91 mg/dL 74-106 N Performed by certified raisin separator operator at [facility] BLOOD UREA DRDNFWIO4882-61-56 13:49:00* Test Item Value Reference Range Interpretation Comments BLOOD UREA NITROGEN (test code = BUN) 8 mg/dL 7-18 N 2 PHELBS GONE UP AND TRIED TO DRAW BLOOD PT SAID COME BACKINFORMED PAIGE LIU E4812 V.LAB.KP2 02/19/19 1037 LILZNHWVNN4832-61-95 13:49:00* Test Item Value Reference Range Interpretation Comments CREATININE (test code = CREAT) 0.90 mg/dL 0.7-1.3 N 2 PHELBS GONE UP AND TRIED TO DRAW BLOOD PT SAID COME BACKINFORMED PAIGE LIU E4812 V.LAB.2 02/19/19 1037 CBC W/AUTO VWGI8631-81-82 13:02:00* Test Item Value Reference Range Interpretation [...] TO COME BACK LATER NOTIFIED PAIGE ALANISKP211/ 1789GOHCUC3972-36-07 11:50:00* Test Item Value Reference Range Interpretation Comments GLUBED (test code = GLUBED) 147 mg/dL 74-106 H Performed by certified raisin separator operator at [facility] UEPEQR1134-33-01 10:37:00* Test Item Value Reference Range Interpretation Comments GLUBED (test code = GLUBED) 97 mg/dL 74-106 N Performed by certified raisin separator operator at [facility] EKPKTZ4242-26-36 21:43:00* Test Item Value Reference Range Interpretation Comments GLUBED (test code = GLUBED) 162 mg/dL 74-106 H Performed by certified raisin separator operator at [facility] XKPRKF0653-33-83 16:06:00* Test Item Value Reference Range Interpretation Comments GLUBED (test code = GLUBED) 98 mg/dL 74-106 N Performed by certified raisin separator operator at [facility] - XR CHEST 1 [id number] 14:36:00 FAX: Olegario Diaz MD [phone] [place]: B St: [facility] FAX: Iris Liao [phone] FAX: Riley Zavala DO [phone] Name: BREE LINDSAY [facility] : 1975 Age/S: 43/M [address] Unit #: [id number] Loc: V.3070 [place] [address] Phys: Iris Liao NP Acct: [id number] Dis Date: Status: ADM IN ONE #: [phone] Exam Date: 02/18/2019 1332 FAX #: [phone] Reason: PICC TIP CONFIRMATION EXAMS: CPT CODE: [id number] XR CHEST 1 V 41043 REASON FOR EXAM: PICC TIP CONFIRMATION Exam [...] finding from the prior exam. Location: [facility] Electronically Signed by Mulugeta Espinoza MD on at 1436 Reported and signed by: Mulugeta Espinoza MD CC: Olegario Diaz MD; Iris Liao SUPERVISOR BRAIDING; Riley Beckman DO Technologist: Ngozi LYON(R); Lucie Martinez(R) Trnscrd Date/Time/By: 01/29 (1436) : By: [email or web address] Orig Print D/T: S: 02/18/2019 (1035) PAGE 1 Signed Report [id number] 12:20:00* Test Item Value Reference Range Interpretation Comments GLUBED (test code = GLUBED) 141 mg/dL 74-106 H Performed by certified raisin separator operator at [facility] CGBVHH5697-63-08 07:15:00* Test Item Value Reference Range Interpretation Comments GLUBED (test code = GLUBED) 129 mg/dL 74-106 H Performed by certified raisin separator operator at [facility] [id number] 00:21:00* Test Item Value Reference Range Interpretation Comments GLUBED (test code = GLUBED) 166 mg/dL 74-106 H Performed by certified raisin separator operator at [facility] [id number] 20:50:00* Test Item Value Reference Range Interpretation Comments GLUBED (test code = GLUBED) 194 mg/dL 74-106 H Performed by certified raisin separator operator at [facility] [id number] 18:19:00* Test Item Value Reference Range Interpretation Comments VANCOMYCIN (test code = VANCO) 25.9 UG/ML 5.0-45.0 N [id number] 16:41:00* Test Item Value Reference Range Interpretation Comments GLUBED (test code = GLUBED) 223 mg/dL 74-106 H Performed by certified raisin separator operator at [facility] NILNGH7889-14-15 13:22:00* Test Item Value Reference Range Interpretation Comments GLUBED (test code = GLUBED) 95 mg/dL 74-106 N Performed by certified raisin separator operator at [facility] [id number] 13:22:00* Test Item Value Reference Range Interpretation Comments GLUBED (test code = GLUBED) 61 mg/dL 74-106 L Performed by certified raisin separator operator at [facility] [id number] 13:22:00* Test Item Value Reference Range Interpretation Comments GLUBED (test code = GLUBED) 32 mg/dL 74-106 LL Test performed as P.O.C. by nursing staff.Performed by certified raisin separator operator at [facility] [id number] 13:22:00* Test Item Value Reference Range Interpretation Comments GLUBED (test code = GLUBED) 28 mg/dL 74-106 LL Test performed as P.O.C. by nursing staff.[facility] certified raisin separator [facility] HospitalDoctor Notified~ AFMIJZ1074-23-40 11:50:00* Test Item Value Reference Range Interpretation Comments GLUBED (test code = GLUBED) 104 mg/dL 74-106 N Performed by certified raisin separator operator at [facility] CBC W/MANUAL [id number] 09:27:00* Test Item Value Reference Range Interpretation [...] code = IMMAT) 0 % 0-0 N SPANQT7169-05-57 07:51:00* Test Item Value Reference Range Interpretation Comments GLUBED (test code = GLUBED) 244 mg/dL 74-106 H Performed by certified raisin separator operator at [facility] BASIC METABOLIC [id number] 07:23:00* Test Item Value Reference Range Interpretation [...] CA) 7.9 mg/dL 8.5-10.1 L BASIC METABOLIC [id number] 07:13:00* Test Item Value Reference Range Interpretation [...] code = CA) mg/dL 8.5-10.1 CBC W/MANUAL [id number] 07:10:00* Test Item Value Reference Range Interpretation [...] MORPHOLOGY (test code = PLTMORPH) CBC W/MANUAL [id number] 07:10:00* Test Item Value Reference Range Interpretation [...] MORPHOLOGY (test code = PLTMORPH) CBC W/MANUAL [id number] 07:10:00* Test Item Value Reference Range Interpretation [...] MORPHOLOGY (test code = PLTMORPH) CBC W/MANUAL [id number] 07:09:00* Test Item Value Reference Range Interpretation [...] MORPHOLOGY (test code = PLTMORPH) CBC W/MANUAL [id number] 07:09:00* Test Item Value Reference Range Interpretation [...] MORPHOLOGY (test code = PLTMORPH) SED RATE [id number] 21:42:00* Test Item Value Reference Range Interpretation Comments SED RATE WESTERGREN (test code = SEDW) 76 mm/hr 0-15 H SED [id number] 21:42:00* Test Item Value Reference Range Interpretation Comments SED RATE (test code = SEDW) 76 mm/hr 0-15 H WINTROBE METHOD: NORMAL RANGE FOR MEN: 0-9 MM/HR WOMAN: 0-20 MM/HR [id number] 20:54:00* Test Item Value Reference Range Interpretation Comments GLUBED (test code = GLUBED) 345 mg/dL 74-106 H Performed by certified raisin separator operator at [facility] [id number] 16:36:00* Test Item Value Reference Range Interpretation Comments GLUBED (test code = GLUBED) 37 mg/dL 74-106 LL Performed by certified raisin separator operator at [facility] [id number] 16:30:00* Test Item Value Reference Range Interpretation Comments GLUBED (test code = GLUBED) 94 mg/dL 74-106 N Performed by certified raisin separator operator at [facility] [id number] 12:04:00* Test Item Value Reference Range Interpretation Comments GLUBED (test code = GLUBED) 236 mg/dL 74-106 H Performed by certified raisin separator operator at [facility] CBC W/MANUAL [id number] 08:49:00* Test Item Value Reference Range Interpretation [...] IMMAT) 0 % 0-0 N BASIC METABOLIC [id number] 08:29:00* Test Item Value Reference Range Interpretation [...] CA) 7.9 mg/dL 8.5-10.1 L CBC W/MANUAL [id number] 08:09:00* Test Item Value Reference Range Interpretation [...] MORPHOLOGY (test code = PLTMORPH) CBC W/MANUAL [id number] 08:09:00* Test Item Value Reference Range Interpretation [...] MORPHOLOGY (test code = PLTMORPH) CBC W/MANUAL [id number] 08:09:00* Test Item Value Reference Range Interpretation [...] MORPHOLOGY (test code = PLTMORPH) CBC W/MANUAL [id number] 08:09:00* Test Item Value Reference Range Interpretation [...] MORPHOLOGY (test code = PLTMORPH) CBC W/MANUAL [id number] 08:09:00* Test Item Value Reference Range Interpretation [...] PLTEST) PLATELET MORPHOLOGY (test code = PLTMORPH) [id number] 07:33:00* Test Item Value Reference Range Interpretation Comments GLUBED (test code = GLUBED) 315 mg/dL 74-106 H Performed by certified raisin separator operator at [facility] [id number] 19:56:00* Test Item Value Reference Range Interpretation Comments GLUBED (test code = GLUBED) 90 mg/dL 74-106 N Performed by certified raisin separator operator at [facility] [id number] 19:07:00* Test Item Value Reference Range Interpretation Comments GLUBED (test code = GLUBED) 107 mg/dL 74-106 H Performed by certified raisin separator operator at [facility] [id number] 19:07:00* Test Item Value Reference Range Interpretation Comments GLUBED (test code = GLUBED) 49 mg/dL 74-106 LL [facility] certified raisin separator operator [facility]~ [id number] 17:50:00* Test Item Value Reference Range Interpretation Comments POTASSIUM (test code = K) 3.0 mmol/L 3.5-5.1 L RE SULT VERIFIED BY REPEAT ANALYSIS [id number] 17:08:00* Test Item Value Reference Range Interpretation Comments GLUBED (test code = GLUBED) 66 mg/dL 74-106 L Performed by certified raisin separator operator at [facility] [id number] 16:57:00* Test Item Value Reference Range Interpretation Comments GLUBED (test code = GLUBED) 76 mg/dL 74-106 N Performed by certified raisin separator operator at [facility] [id number] 13:11:00* Test Item Value Reference Range Interpretation Comments POTASSIUM (test code = K) 5.2 mmol/L 3.5-5.1 H [id number] 11:49:00* Test Item Value Reference Range Interpretation Comments GLUBED (test code = GLUBED) 81 mg/dL 74-106 N Performed by certified raisin separator operator at [facility] [id number] 09:39:00* Test Item Value Reference Range Interpretation Comments GLUBED (test code = GLUBED) 78 mg/dL 74-106 N Performed by certified raisin separator operator at [facility] - MRI LOW EXT W/O CONT [id number] 09:36:00 FAX: Olegario Diaz MD [phone] [place]: B St: ADM FAX: Heavenly Kerr [facility] [phone] FAX: Riley Zavala DO [phone] Name: BREE LINDSAY [facility] : 1975 Age/S: 43/M [address] Unit #: [id number] Loc: V.3070 [place], [place] [address] Phys: Heavenly Null DPM Acct: [id number] Dis Date: Status: ADM IN ONE #: [phone] Exam Date: 02/15/2019 0859 FAX #: [phone] Reason: cellulitis EXAMS: CPT CODE: [id number] MR [place]T W/[place] [address] HISTORY: Cellu litis TECHNIQUE: Sagittal T1, sagittal [...] By: [email or web address] Orig Print D/T: S: 02/15/2019 (5582) PAGE 1 Signed Report [id number] 07:22:00* Test Item Value Reference Range Interpretation Comments GLUBED (test code = GLUBED) 57 mg/dL 74-106 L Performed by certified raisin separator operator at [facility] BASIC METABOLIC [id number] 05:15:00* Test Item Value Reference Range Interpretation Comments SODIUM (test code = NA) 136 mmol/L 136-145 N POTASSIUM (test code = K) 2.7 mmol/L 3.5-5.1 Re sults called to [place] [id number] [address] 02/15/19 0515Critical results verified and [...] CA) 8.3 mg/dL 8.5-10.1 L C REACTIVE [id number] 04:21:00* Test Item Value Reference Range Interpretation Comments C REACTIVE PROTEIN (test code = CRP) 27.10 mg/dL 0-0.3 H CBC W/MANUAL [id number] 04:05:00* Test Item Value Reference Range Interpretation [...] IMMAT) 0 % 0-0 N CBC W/MANUAL [id number] 03:30:00* Test Item Value Reference Range Interpretation [...] PLTEST) PLATELET MORPHOLOGY (test code = PLTMORPH) [id number] 20:26:00* Test Item Value Reference Range Interpretation Comments GLUBED (test code = GLUBED) 151 mg/dL 74-106 H Performed by certified raisin separator operator at [facility] [id number] 17:12:00* Test Item Value Reference Range Interpretation Comments GLUBED (test code = GLUBED) 124 mg/dL 74-106 H Performed by certified raisin separator operator at [facility] [id number] 17:07:00* Test Item Value Reference Range Interpretation Comments GLUBED (test code = GLUBED) 81 mg/dL 74-106 N Performed by certified raisin separator operator at [facility] [id number] 12:13:00* Test Item Value Reference Range Interpretation Comments GLUBED (test code = GLUBED) 95 mg/dL 74-106 N Performed by certified raisin separator operator at [facility] CBC W/MANUAL [id number] 08:15:00* Test Item Value Reference Range Interpretation [...] code = IMMAT) 0 % 0-0 N [id number] 07:18:00* Test Item Value Reference Range Interpretation Comments GLUBED (test code = GLUBED) 195 mg/dL 74-106 H Performed by certified raisin separator operator at [facility] BASIC METABOLIC [id number] 07:16:00* Test Item Value Reference Range Interpretation [...] code = CA) 8.4 mg/dL 8.5-10.1 L [id number] 07:16:00* Test Item Value Reference Range Interpretation Comments MAGNESIUM (test code = MAG) 1.7 mg/dL 1.8-2.4 L CBC W/MANUAL [id number] 06:58:00* Test Item Value Reference Range Interpretation [...] MORPHOLOGY (test code = PLTMORPH) CBC W/MANUAL [id number] 06:58:00* Test Item Value Reference Range Interpretation [...] MORPHOLOGY (test code = PLTMORPH) CBC W/MANUAL [id number] 06:58:00* Test Item Value Reference Range Interpretation [...] MORPHOLOGY (test code = PLTMORPH) CBC W/MANUAL [id number] 06:58:00* Test Item Value Reference Range Interpretation [...] MORPHOLOGY (test code = PLTMORPH) CBC W/MANUAL [id number] 06:58:00* Test Item Value Reference Range Interpretation [...] MORPHOLOGY (test code = PLTMORPH) BASIC METABOLIC [id number] 06:56:00* Test Item Value Reference Range Interpretation [...] CALCIUM (test code = CA) mg/dL 8.5-10.1 [id number] 06:56:00* Test Item Value Reference Range Interpretation Comments MAGNESIUM (test code = MAG) mg/dL 1.8-2.4 [id number] 20:42:00* Test Item Value Reference Range Interpretation Comments GLUBED (test code = GLUBED) 261 mg/dL 74-106 H Performed by certified raisin separator operator at [facility] CBC W/MANUAL [id number] 10:55:00* Test Item Value Reference Range Interpretation [...] MORPHOLOGY (test code = PLTMORPH) NORMAL URINALYSIS [id number] 10:38:00* Test Item Value Reference Range Interpretation [...] Clean Catch- XR FOOT 3 + V [id number] 10:33:00 Name: DAISHABREE [facility] : 1975 Age/S:43 /M [address] [facility] Unit#:[id number] Loc: [place]Keeley [place], [place] [address] Phys: Chandan Cage MD Dis Date: PHONE #: [phone] Status: REG ER FAX #: [phone] Exam Date: 02/13/2019 Re ason: left foot swelling EXAMS: CPT CODE: [id number] XR FOOT 3 + [place] [address] CLINICAL HISTORY: left foot swelling TECHNIQUE: AP, [...] no acute underlying bony injury. Location: [facility] at 1033 Reported and signed by: Mulugeta Espinoza MD CC: Tracy Cage MD; Riley Beckman DO Technologist: Stone Sadler RT(R)(CT) Trnsc rpt Data: 02/13/2019 (1033) t.SDR.RR31 Orig Print D/T: S : 02/13/2019 (1038) PAGE 1 Signed Report LACTIC [id number] 10:28:00* Test Item Value Reference Range Interpretation Comments LACTIC ACID (test code = LACT) 1.6 MMOL/L 0.4-1.9 N BASIC METABOLIC [id number] 10:28:00* Test Item Value Reference Range Interpretation [...] CA) 8.7 mg/dL 8.4-10.2 N HEPATIC FUNCTION [id number] 10:28:00* Test Item Value Reference Range Interpretation [...] code = ALKP) 120 U/L 38-126 N [id number] 10:28:00* Test Item Value Reference Range Interpretation Comments TROPONIN-I (test code = TROPI) <0.015 ng/mL 0.00-0.056 N URINALYSIS [id number] 10:20:00* Test Item Value Reference Range Interpretation [...] HPF NONE Urine Source? Clean CatchBASIC METABOLIC [id number] 10:19:00* Test Item Value Reference Range Interpretation [...] CA) 8.7 mg/dL 8.4-10.2 N HEPATIC FUNCTION [id number] 10:19:00* Test Item Value Reference Range Interpretation [...] TOTAL (test code = ALKP) IUnit/L 45-117 [id number] 10:19:00* Test Item Value Reference Range Interpretation Comments TROPONIN-I (test code = TROPI) ng/mL 0-0.045 CBC W/MANUAL [id number] 10:13:00* Test Item Value Reference Range Interpretation [...] MORPHOLOGY (test code = PLTMORPH) CBC W/MANUAL [id number] 10:02:00* Test Item Value Reference Range Interpretation [...] MORPHOLOGY (test code = PLTMORPH) CBC W/MANUAL [id number] 10:02:00* Test Item Value Reference Range Interpretation [...] MORPHOLOGY (test code = PLTMORPH) CBC W/MANUAL [id number] 10:02:00* Test Item Value Reference Range Interpretation [...] MORPHOLOGY (test code = PLTMORPH) CBC W/MANUAL [id number] 10:02:00* Test Item Value Reference Range Interpretation [...] code = PLTMORPH) - XR CHEST 1 [id number] 09:56:00 [facility] 1975 Age/S:43 /M [address] [facility] Unit#:[id number] Loc: [place] [address] Phys: Tracy Cage MD Dis Date: PHONE #: [phone] Status: REG ER FAX #: [phone] Exam Date: 02/13/2019 Reason: CODE SEPSIS EXAMS: CPT CODE: [id number] XR CHEST 1 V 08007 REASON FOR EXAM: CODE SEPSIS Exam Order [...] IMPRESSION: No acute cardiopulmonary process. Location: [facility] Signed by Mulugeta Espinoza MD on 02/13/2019 at 0956 Reported and signed by: Mulugeta Espinoza MD CC: Tracy Cage MD; Keeley Beckman DO Technologist: Stone Sadler RT(R)(CT) Trnscrpt Data: 02/13/2019 (0956) t.IRAR.RR31 Orig Print D/T: S: 02/13/2019 (0949) PAGE 1 Signed Report [id number] 16:17:00* Test Item Value Reference Range Interpretation Comments GLUBED (test code = GLUBED) 187 mg/dL 74-106 H Performed by certified raisin separator operator at [facility] [id number] 11:57:00* Test Item Value Reference Range Interpretation Comments GLUBED (test code = GLUBED) 147 mg/dL 74-106 H Performed by certified raisin separator operator at [facility] [id number] 07:34:00* Test Item Value Reference Range Interpretation Comments GLUBED (test code = GLUBED) 110 mg/dL 74-106 H Performed by certified raisin separator operator at [facility] CBC W/MANUAL [id number] 05:59:00* Test Item Value Reference Range Interpretation [...] IMMAT) 0 % 0-0 N BASIC METABOLIC [id number] 05:25:00* Test Item Value Reference Range Interpretation Comments SODIUM (test code = NA) 138 mmol/L 136-145 N POTASSIUM (test code = K) 2.7 mmol/L 3.5-5.1 [facility] called to [id number] by [place] 02/12/19 0525Critical results verified and [...] CA) 8.4 mg/dL 8.5-10.1 L CBC W/MANUAL [id number] 05:04:00* Test Item Value Reference Range Interpretation [...] MORPHOLOGY (test code = PLTMORPH) CBC W/MANUAL [id number] 05:04:00* Test Item Value Reference Range Interpretation [...] MORPHOLOGY (test code = PLTMORPH) CBC W/MANUAL [id number] 05:04:00* Test Item Value Reference Range Interpretation [...] MORPHOLOGY (test code = PLTMORPH) CBC W/MANUAL [id number] 05:04:00* Test Item Value Reference Range Interpretation [...] MORPHOLOGY (test code = PLTMORPH) CBC W/MANUAL [id number] 05:04:00* Test Item Value Reference Range Interpretation [...] interpreted taking into account the patients history. [id number] 19:42:00* Test Item Value Reference Range Interpretation Comments GLUBED (test code = GLUBED) 131 mg/dL 74-106 H Performed by certified raisin separator operator at [facility] LACTIC [id number] 19:38:00* Test Item Value Reference Range Interpretation Comments LACTIC ACID (test code = LACT) 0.7 mmol/L 0.4-1.9 N [id number] 18:44:00* Test Item Value Reference Range Interpretation Comments GLUBED (test code = GLUBED) 129 mg/dL 74-106 H Performed by certified raisin separator operator at [facility] [id number] 16:34:00* Test Item Value Reference Range Interpretation Comments GLUBED (test code = GLUBED) 66 mg/dL 74-106 L Performed by certified raisin separator operator at [facility] [id number] 12:07:00* Test Item Value Reference Range Interpretation Comments GLUBED (test code = GLUBED) 285 mg/dL 74-106 H Performed by certified raisin separator operator at [facility] - XR CHEST 1 [id number] 08:53:00 FAX: Faith Cook MD [phone] [place]: B St: ADM FAX: Riley Zavala DO [phone] Name: BREE LINDSAY [facility] : 1975 Age/S: 43/M [address] [facility] Unit #: [id number] Loc: V.3017 [place] [address] Phys: Faith Roy MD Acct: [id number] Dis Date: Status: ADM IN PHONE #: [phone] Exam Date: 02/11/2019829 FAX #: [phone] Reason: Leukocytosis EXAMS: CPT CODE: [id number] XR CHEST 1 V 69297 HISTORY: Leukocytosis. COMPARISON: January 12, 2018. Location: [facility]. No acute infiltrates, effusion or [...] 293 mg/dL 74-106 H Performed by certified raisin separator operator at [facility] CBC W/MANUAL [id number] 06:45:00* Test Item Value Reference Range Interpretation [...] IMMAT) 0 % 0-0 N BASIC METABOLIC [id number] 06:37:00* Test Item Value Reference Range Interpretation [...] CA) 8.6 mg/dL 8.5-10.1 N BASIC METABOLIC [id number] 06:31:00* Test Item Value Reference Range Interpretation [...] code = CA) mg/dL 8.5-10.1 CBC W/MANUAL [id number] 06:18:00* Test Item Value Reference Range Interpretation [...] MORPHOLOGY (test code = PLTMORPH) CBC W/MANUAL [id number] 06:18:00* Test Item Value Reference Range Interpretation [...] MORPHOLOGY (test code = PLTMORPH) CBC W/MANUAL [id number] 06:18:00* Test Item Value Reference Range Interpretation [...] MORPHOLOGY (test code = PLTMORPH) CBC W/MANUAL [id number] 06:18:00* Test Item Value Reference Range Interpretation [...] MORPHOLOGY (test code = PLTMORPH) CBC W/MANUAL [id number] 06:18:00* Test Item Value Reference Range Interpretation [...] PLATELET MORPHOLOGY (test code = PLTMORPH) URINALYSIS [id number] 02:01:00* Test Item Value Reference Range Interpretation [...] BE COLLECTED BY NURSEDRUGS OF ABUSE SCREEN [id number] 02:01:00* Test Item Value Reference Range Interpretation [...] Source? VoidedSAMPLE TO BE COLLECTED BY NURSEURINALYSIS [id number] 01:45:00* Test Item Value Reference Range Interpretation [...] BE COLLECTED BY NURSEDRUGS OF ABUSE SCREEN [id number] 01:45:00* Test Item Value Reference Range Interpretation [...] 02/10/192142Urine Source? VoidedSAMPLE TO BE COLLECTED BY [id number] 23:31:00* Test Item Value Reference Range Interpretation Comments GLUBED (test code = GLUBED) 223 mg/dL 74-106 H Performed by certified raisin separator operator at [facility] [id number] 18:09:00* Test Item Value Reference Range Interpretation Comments GLUBED (test code = GLUBED) 201 mg/dL 74-106 H Performed by certified raisin separator operator at [facility] [id number] 11:27:00* Test Item Value Reference Range Interpretation Comments GLUBED (test code = GLUBED) 291 mg/dL 74-106 H Performed by certified raisin separator operator at [facility] [id number] 08:25:00* Test Item Value Reference Range Interpretation Comments GLUBED (test code = GLUBED) 288 mg/dL 74-106 H Performed by certified raisin separator operator at [facility] - XR ABDOMEN AP 1 [id number] 08:01:00 FAX: Bobby Self MD [place]: B St: ADM FAX: Riley Zavala DO [phone] Name: BREE LINDSAY [facility] : 1975 Age/S: 43/M [address] [facility] Unit #: [id number] Loc: V.3017 [place] [address] Phys: Bobby Self MD Acct: [id number] Dis Date: Status: ADM IN PHONE #: [phone] Exam Date: 02/10/2019 0805 FAX #: [phone] Reason: abdominal pain nausea and vomiting EXAMS: CPT CODE: [id number] XR ABDOMEN AP 1 V 00713 HISTORY: abdominal pain nausea and vomiting TECHNIQUE: [...] Trnscrd Date/Time/By: 02/10/2019 (0801) : By: [email or web address] Dimitry g Print D/T: [...] into account the patients history. BASIC METABOLIC [id number] 00:47:00* Test Item Value Reference Range Interpretation [...] CA) 9.1 mg/dL 8.5-10.1 N HEPATIC FUNCTION [id number] 00:47:00* Test Item Value Reference Range Interpretation [...] reference range due to change in reagent. [id number] 00:47:00* Test Item Value Reference Range Interpretation Comments LIPASE (test code = LIP) < 10 U/L 73.0-393.0 L CBC W/O [id number] 00:11:00* Test Item Value Reference Range Interpretation [...] code = MPV) 9.7 fL 6.7-11.0 N [id number] 07:24:00* Test Item Value Reference Range Interpretation Comments GLUBED (test code = GLUBED) 269 mg/dL 74-106 H Performed by certified raisin separator operator at [facility] [id number] 20:19:00* Test Item Value Reference Range Interpretation Comments GLUBED (test code = GLUBED) 199 mg/dL 74-106 H Performed by certified raisin separator operator at [facility] [id number] 16:56:00* Test Item Value Reference Range Interpretation Comments GLUBED (test code = GLUBED) 153 mg/dL 74-106 H Performed by certified raisin separator operator at [facility] [id number] 11:42:00* Test Item Value Reference Range Interpretation Comments GLUBED (test code = GLUBED) 231 mg/dL 74-106 H Performed by certified raisin separator operator at [facility] [id number] 08:17:00* Test Item Value Reference Range Interpretation Comments GLUBED (test code = GLUBED) 160 mg/dL 74-106 H Performed by certified raisin separator operator at [facility] CBC W/AUTO [id number] 06:43:00* Test Item Value Reference Range Interpretation [...] NRBC#) 0.00 K/mm3 0.0-0.1 N BASIC METABOLIC [id number] 06:43:00* Test Item Value Reference Range Interpretation [...] CA) 8.8 mg/dL 8.5-10.1 N BASIC METABOLIC [id number] 06:26:00* Test Item Value Reference Range Interpretation [...] (test code = CA) mg/dL 8.5-10.1 URINALYSIS [id number] 23:07:00* Test Item Value Reference Range Interpretation [...] Urine Source? Clean CatchDRUGS OF ABUSE SCREEN [id number] 23:07:00* Test Item Value Reference Range Interpretation [...] NEGATIVE <300 ng/mL Urine Source? Clean CatchURINALYSIS [id number] 22:44:00* Test Item Value Reference Range Interpretation [...] Urine Source? Clean CatchDRUGS OF ABUSE SCREEN [id number] 22:44:00* Test Item Value Reference Range Interpretation [...] <300 ng/mL Urine Source? Clean CatchBASIC METABOLIC [id number] 18:12:00* Test Item Value Reference Range Interpretation [...] CA) 10.0 mg/dL 8.5-10.1 N HEPATIC FUNCTION [id number] 18:12:00* Test Item Value Reference Range Interpretation [...] reference range due to change in reagent. [id number] 18:12:00* Test Item Value Reference Range Interpretation Comments LIPASE (test code = LIP) < 10 U/L 73.0-393.0 L BASIC METABOLIC [id number] 18:04:00* Test Item Value Reference Range Interpretation [...] code = CA) mg/dL 8.5-10.1 HEPATIC FUNCTION [id number] 18:04:00* Test Item Value Reference Range Interpretation [...] TOTAL (test code = ALKP) IUnit/L 45-117 [id number] 18:04:00* Test Item Value Reference Range Interpretation Comments LIPASE (test code = LIP) U/L 73.0-393.0 CBC W/O [id number] 18:00:00* Test Item Value Reference Range Interpretation [...] code = MPV) 10.1 fL 6.7-11.0 N [id number] 17:11:00* Test Item Value Reference Range Interpretation Comments GLUBED (test code = GLUBED) 108 mg/dL 74-106 H Performed by certified raisin separator operator at [facility] [id number] 14:49:00 RUN DATE: 12/21/18 [facility] - Lab PAGE 1 RUN TIME: 1449 Specimen Inqui ry RUN USER: INTERFACE PATIENT: BREE LINDSAY ACCT #: [id number] LOC: Jason3SOBS U #: [id number] AGE/SX: 43/M ROOM: [facility] RE12/16/18REG DR: Olegario Diaz MD : 75 BED: A DIS: 12/19/18 STATUS: DIS IN TLOC: SPEC #: [id number] RECD: 12/20/18 STATUS: SHAHRAM REQ #: [id number] HUY: 12/18/18- SUBM DR: Sav Coffey MD ENTERED: 12/20/18 SP TYPE: GALLBLADD OTHR DR: Levi Natarajan i, MD, Shao-Chun DOORDERED: LINDA COPIES TO: Levi Lakhani MD [address] [place] [address] Sav Coffey MD [address] [place] [address] [place] [address] [place] [address] MARKERS: ABNORMAL TISSUE, GALLBL ADDER PROCEDURES: LINDA (12/21/18-1158) TISSUES: GALLBLADDER, NOS CLINICAL HISTORY COLLECTION DATE: 12/18/18 CHOLECYSTITIS FIN AL DIAGNOSIS Gallbladder, cholecystectomy: PATCHY MILD CHRONIC ACALCUL OUS CHOLECYSTITIS NEGATIVE FOR MALIGNANCY RRB/sm A 01895 CONTINUED ON NEXT PAGE RUN DATE : 12/21/18 [facility] Lab PAGE 2 RUN TIME: 1449 Specimen Inquiry RUN USER: INTERFACE SPEC #: [id number] PATIENT: BREE LINDSAY #[id number] (Continued) MACROSCOPIC The specimen is r eceived [...] thickness. No foc al lesions are identified. Paleobotanist tissue is submitted in a single violeta sette. GROSS PERFORMED AT [facility] [address] [place] [address] (p)[phone] MICROSCOPIC All of the stains, including any controls performed, st ain appropriately. MICROSCOPIC PERFORMED AT [facility] [address] [facility] [place] [address] (G) PERFORMING SITE Diagnosis performed at: [facility] [address] [facility] [place] [address] Signed ORLIN Irvin ON FILE Dino Patton MD 12/21/18 1449 END OF REPORT GLUBED 2018-12-19 11:45:00* Test Item Value Reference Range Interpretation Comments GLUBED (test code = GLUBED) 238 mg/dL 74-106 H Performed by certified raisin separator operator at [facility] BASIC METABOLIC [id number] 08:28:00* Test Item Value Reference Range Interpretation [...] code = CA) 8.2 mg/dL 8.5-10.1 L [id number] 08:28:00* Test Item Value Reference Range Interpretation Comments MAGNESIUM (test code = MAG) 1.5 mg/dL 1.8-2.4 L BASIC METABOLIC [id number] 08:21:00* Test Item Value Reference Range Interpretation [...] CALCIUM (test code = CA) mg/dL 8.5-10.1 [id number] 08:21:00* Test Item Value Reference Range Interpretation Comments MAGNESIUM (test code = MAG) mg/dL 1.8-2.4 CBC W/AUTO [id number] 07:56:00* Test Item Value Reference Range Interpretation [...] DIFF REQUIRED (test code = MDIFF) NO [id number] 07:38:00* Test Item Value Reference Range Interpretation Comments GLUBED (test code = GLUBED) 277 mg/dL 74-106 H Performed by certified raisin separator operator at [facility] [id number] 20:34:00* Test Item Value Reference Range Interpretation Comments GLUBED (test code = GLUBED) 165 mg/dL 74-106 H Performed by certified raisin separator operator at [facility] [id number] 19:18:00* Test Item Value Reference Range Interpretation Comments GLUBED (test code = GLUBED) 203 mg/dL 74-106 H Performed by certified raisin separator operator at [facility] BASIC METABOLIC [id number] 11:47:00* Test Item Value Reference Range Interpretation [...] mg/dL 8.5-10.1 L PT IN SURGERY PAIGE OFC3738 V.LAB.[facility] 12/18/18 5466RGBLVT4432-60-11 11:42:00* Test Item Value Reference Range Interpretation Comments GLUBED (test code = GLUBED) 360 mg/dL 74-106 H Performed by certified raisin separator operator at [facility] BASIC METABOLIC [id number] 11:41:00* Test Item Value Reference Range Interpretation [...] CA) mg/dL 8.5-10.1 PT IN SURGERY PAIGE BUL1380 V.LAB.2 12/18/18 0926CBC W/AUTO [id number] 11:11:00* Test Item Value Reference Range Interpretation [...] = MDIFF) NO PT IN SURGERY RN QES2904 V.LAB.KP2 12/18/18 [id number] 03:55:00* Test Item Value Reference Range Interpretation Comments GLUBED (test code = GLUBED) 269 mg/dL 74-106 H Performed by certified raisin separator operator at [facility] [id number] 23:58:00* Test Item Value Reference Range Interpretation Comments GLUBED (test code = GLUBED) 233 mg/dL 74-106 H Performed by certified raisin separator operator at [facility] [id number] 09:16:00* Test Item Value Reference Range Interpretation Comments GLUBED (test code = GLUBED) 179 mg/dL 74-106 H Performed by certified raisin separator operator at [facility] BASIC METABOLIC [id number] 06:40:00* Test Item Value Reference Range Interpretation Comments SODIUM (test code = NA) 141 mmol/L 136-145 N POTASSIUM (test code = K) 2.8 mmol/L 3.5-5.1 LL Re sults called to [id number] by V.LAB.[facility] 12/17/18 0639Critical results verified and [...] code = CA) 8.3 mg/dL 8.5-10.1 L [id number] 06:40:00* Test Item Value Reference Range Interpretation Comments MAGNESIUM (test code = MAG) 1.6 mg/dL 1.8-2.4 L B-TYPE NATRIURETIC [id number] 06:34:00* Test Item Value Reference Range Interpretation Comments B-TYPE NATRIURETIC PEPTIDE (test code = BNP) 128.51 pgram/mL 0-100 H CBC W/AUTO [id number] 05:33:00* Test Item Value Reference Range Interpretation [...] code = NRBC#) 0.00 K/mm3 0.0-0.1 N [id number] 02:55:00* Test Item Value Reference Range Interpretation Comments GLUBED (test code = GLUBED) 102 mg/dL 74-106 N Performed by certified raisin separator operator at [facility] [id number] 21:18:00* Test Item Value Reference Range Interpretation Comments GLUBED (test code = GLUBED) 224 mg/dL 74-106 H Performed by certified raisin separator operator at [facility] [id number] 16:43:00* Test Item Value Reference Range Interpretation Comments GLUBED (test code = GLUBED) 158 mg/dL 74-106 H Performed by certified raisin separator operator at [facility] DRUGS OF ABUSE SCREEN [id number] 14:45:00* Test Item Value Reference Range Interpretation [...] NEGATIVE <300 ng/mL DRUGS OF ABUSE SCREEN [id number] 14:24:00* Test Item Value Reference Range Interpretation [...] ng/mL - HEPA IMAG INCL GB W [id number] 14:14:00 FAX: Leia Kendrick [place]: B St: ADM FAX: Bobby Self MD FAX: Riley Zavala DO [phone] Name: BREE LINDSAY [facility] : 1975 Age/S: 43/M [address] [facility] Unit #: [id number] Loc: V.[address] [place] [address] Phys: Leia Kendrick MSN Acct: [id number] Dis Date: Status: ADM IN ONE #: [phone] Exam Date: 12/16/2018 1412 FAX #: [phone] Reason: recurrent n/v EXAMS: CPT CODE: [id number] HE PA IMAG INCL GB W PHA [id number] HISTORY: recur rent n/v EXAM: NUCLEAR MEDICINE [...] DO Technologist: ESAU ASHRAF Trnscrd Date/Time/By: 12/16/2018 (4773) : By: [email or web address] 1 Orig Print D/T: S: 12/16/2018 (6869) PAGE 1 Signed Report GLUBED 2018-12-16 11:12:00* Test Item Value Reference Range Interpretation Comments GLUBED (test code = GLUBED) 133 mg/dL 74-106 H Performed by certified raisin separator operator at [facility] - US ABDOMEN [id number] 10:25:00 Name: BREE LINDSAY [facility] : 1975 Age/S: 43 / M [address] Unit #: [id number] Loc: [place] [address] Phys: AroldoLeia MSN Acct: [id number] Dis Date: Status: ADM IN PHONE #: [phone] Exam Date: 12/16/2018939 FAX #: [phone] Reason: n/v EXAMS: CPT CODE: [id number] US ABDOMEN COMPLETE 34516 REASON FOR EXAM: n/v EXAM ORDER DATE: 12/16/2018 8:46 AM Attending MDonD.: Leia Kendrick PROCEDURE: - US ABDOMEN COMPLETE [...] 1 Signed Report (CONTINUED) Name: BREE LINDSAY [facility] : 1975 Age/S: 43 / M [address] Unit #: [id number] Loc: [place] [address] Phys: Leia Kendrick MSN Acct: [id number] Dis Date: Status: AD M IN PHONE #: [phone] Exam Date: 12/16 0940 FAX #: [phone] Reason: n/v EXAMS: CPT CODE: [id number] US ABDOMEN COMPLETE 76 700 <Continued> Left [...] Riley Beckman DO Technologist: NOEMY OLVERA RT(R),RDMS Trnmib Date/Time: 12/16/2018 (1025) [email or web address] Orig Print D/T: S: 12/16/2018 (3405) Probe: PAGE 2 Signed Report [id number] 07:04:00* Test Item Value Reference Range Interpretation Comments GLUBED (test code = GLUBED) 177 mg/dL 74-106 H Performed by certified raisin separator operator at [facility] URINALYSIS [id number] 00:25:00* Test Item Value Reference Range Interpretation [...] FEW A Urine Source? Clean CatchBASIC METABOLIC [id number] 00:22:00* Test Item Value Reference Range Interpretation [...] CA) 8.8 mg/dL 8.5-10.1 N HEPATIC FUNCTION [id number] 00:22:00* Test Item Value Reference Range Interpretation [...] reference range due to change in reagent. [id number] 00:22:00* Test Item Value Reference Range Interpretation Comments LIPASE (test code = LIP) < 10 U/L 73.0-393.0 L [id number] 00:22:00* Test Item Value Reference Range Interpretation Comments TROPONIN-I (test code = TROPI) <0.015 ng/mL 0-0.045 N BASIC METABOLIC [id number] 00:12:00* Test Item Value Reference Range Interpretation [...] code = CA) mg/dL 8.5-10.1 HEPATIC FUNCTION [id number] 00:12:00* Test Item Value Reference Range Interpretation [...] TOTAL (test code = ALKP) IUnit/L 45-117 [id number] 00:12:00* Test Item Value Reference Range Interpretation Comments LIPASE (test code = LIP) U/L 73.0-393.0 [id number] 00:12:00* Test Item Value Reference Range Interpretation Comments TROPONIN-I (test code = TROPI) ng/mL 0-0.045 CBC W/O [id number] 00:06:00* Test Item Value Reference Range Interpretation [...] MPV) 10.2 fL 6.7-11.0 N BASIC METABOLIC [id number] 08:09:00* Test Item Value Reference Range Interpretation [...] CA) 9.0 mg/dL 8.5-10.1 N HEPATIC FUNCTION [id number] 08:09:00* Test Item Value Reference Range Interpretation [...] reference range due to change in reagent. [id number] 08:09:00* Test Item Value Reference Range Interpretation Comments LIPASE (test code = LIP) < 10 U/L 73.0-393.0 L [id number] 08:09:00* Test Item Value Reference Range Interpretation Comments TROPONIN-I (test code = TROPI) <0.015 ng/mL 0-0.045 N BASIC METABOLIC [id number] 07:52:00* Test Item Value Reference Range Interpretation [...] code = CA) mg/dL 8.5-10.1 HEPATIC FUNCTION [id number] 07:52:00* Test Item Value Reference Range Interpretation [...] TOTAL (test code = ALKP) IUnit/L 45-117 [id number] 07:52:00* Test Item Value Reference Range Interpretation Comments LIPASE (test code = LIP) U/L 73.0-393.0 [id number] 07:52:00* Test Item Value Reference Range Interpretation Comments TROPONIN-I (test code = TROPI) ng/mL 0-0.045 CBC W/O [id number] 07:40:00* Test Item Value Reference Range Interpretation [...] = MPV) 10.5 fL 6.7-11.0 N POC-Glucose [id number] 17:19:00* Test Item Value Reference Range Interpretation Comments POC-Glucose Meter (test code = 1538) 266 mg/dL 70-110 H TESTED AT [address] [address] Lab Interpretation (test code = 10324-1) [facility] [id number] 17:19:00* Test Item Value Reference Range Interpretation Comments POC-GLUCOSE METER (BEAKER) (test code = 1538) 266 mg/dL 70-110 H TESTED AT [address] [address] ECG 12 [id number] 14:27:26Interface, External Ris In - 12/14/2018 2:27 PM CDTVentricular Rate 78 BPMAtrial Rate 78 BPMP-R Interval 168 msQRS Duration 80 msQ-T Interval 350 msQTC Calculation(Aristideszealex) 399 msP Bourg 52 degreesR Bourg -14 degreesT Bourg 35 degreesNormal sinus rhythmNormal ECGNo previous ECGs availableConfirmed by MD MEGGAN, MARCELINO ([id number]) on 12/14/2018 2:27:24 [facility] [id number] 12:17:00* Test Item Value Reference Range Interpretation Comments POC-GLUCOSE METER (BEAKER) (test code = 1538) 240 mg/dL 70-110 H TESTED AT [address] [address] POCT-GLUCOSE [id number] 08:12:00* Test Item Value Reference Range Interpretation Comments POC-GLUCOSE METER (BEAKER) (test code = 1538) 184 mg/dL 70-110 H TESTED AT [facility] [address] [address] Basic metabolic [id number] 06:18:00* Test Item Value Reference Range Interpretation [...] mg/dL 70-105 H Calcium (test code = 68383-3) 8.7 mg/dL 8.4-10.2 EGFR (test code = 86357-9) 87 mL/min/1.73 sq m ESTIMATED GFR IS NOT ACCURATE CREATININE CLEARANCE IN PREDICTING GLOMERULAR FILTRATION RATE. ESTIMATED GFR IS NOT APPLICABLE FOR DIALYSIS PATIENTS. Lab Interpretation (test code = 86229-3) [facility] 06:18:[facility]* Test Item Value Reference Range Interpretation Comments Magnesium (test code = 75609-2) 1.6 mg/dL 1.6-2.6 Lab Interpretation (test code = 51969-1) Normal [facility]2019-[facility] 06:18:00* Test Item Value Reference Range Interpretation Comments Phosphorus (test code = 2777-1) 2.2 mg/dL 2.3-4.7 L Lab Interpretation (test code = 48009-9) Abnormal [facility]2019-09-17 06:18:00* Test Item Value Reference Range Interpretation Comments PHOSPHORUS (BEAKER) (test code = 604) 2.2 mg/dL 2.3-4.7 L [id number] 06:18:00* Test Item Value Reference Range Interpretation Comments MAGNESIUM (BEAKER) (test code = 627) 1.6 mg/dL 1.6-2.6 BASIC METABOLIC [id number] 06:18:00* Test Item Value Reference Range Interpretation [...] PATIENTS. CBC with platelet count + automated [id number] 06:16:00* Test Item Value Reference Range Interpretation [...] clinical correlation required. MPV (test code = 77419-0) 10.4 fL 9.4-12.4 nRBC (test code = [...] % 0-1 Lab Interpretation (test code = 90569-8) [facility] & AUTO [id number] 06:16:00* Test Item Value Reference Range Interpretation [...] code = 2801) 0 % 0-1 POCT-GLUCOSE [id number] 21:15:00* Test Item Value Reference Range Interpretation Comments POC-GLUCOSE METER (BEAKER) (test code = 1538) 307 mg/dL 70-110 H Notified RN or MD Patient refused repeat test/TESTED AT [facility] [address] [address] Hemoglobin [id number] 19:48:00* Test Item Value Reference Range Interpretation Comments Hemoglobin A1C (test code = 4548-4) 8.4 % 4.3-6.1 H Lab Interpretation (test code = 76160-0) [facility] [id number] 19:48:00* Test Item Value Reference Range Interpretation Comments HEMOGLOBIN A1C (BEAKER) (test code = 368) 8.4 % 4.3-6.1 H Lipid [id number] 16:17:00* Test Item Value Reference Range Interpretation Comments Triglycerides (test code = 2571-8) 101 mg/dL Cholesterol (test code = 2093-3) 151 mg/dL HDL (test code = 2085-9) 38 mg/dL LDL Calculated (test code = 42793-5) 93 mg/dL BESS (test code = BESS) Triglyceride Reference Range : Low Risk <150 Borderline 150-199 High Risk 200-499 Very High Risk >=500 Cholesterol Reference Range: Low Risk <200 Borderline 200-239 High Risk >240 HDL Cholesterol Reference Range: Low Risk >=60 High Risk <40 LDL Cholesterol Reference Range: Optimal <100 Near Optimal 100-129 Borderline 130-159 High 160-189 Very High >=190 [facility] Hospital[facility] function [id number] 16:17:00* Test Item Value Reference Range Interpretation Comments Protein, Total (test code = 2885-2) 6.9 6.0- 8.3 gm/dL Albumin (test code = 64791-3) 3.9 g/dL 3.5-5 Total Bilirubin (test code = 1974-2) 0.5 mg/dL 0.2-1.2 Bilirubin, Direct (test code = 1967-7) 0.2 mg/dL 0.1-0.5 Alkaline Phosphatase (test code = 6768-6) 80 U/L 40-150 AST (test code = 1920-8) 18 U/L 5-34 ALT (test code = 1742-6) 15 U/L 6-55 Lab Interpretation (test code = 80231-8) Normal [facility] HospitalLIPID [id number] 16:17:00* Test Item Value Reference Range Interpretation [...] High 160-189 Very High >=190 BASIC METABOLIC [id number] 16:17:00* Test Item Value Reference Range Interpretation [...] NOT APPLICABLE FOR DIALYSIS PATIENTS. HEPATIC FUNCTION [id number] 16:17:00* Test Item Value Reference Range Interpretation [...] U/L 6-55 CBC W/PLT COUNT & AUTO [id number] 16:07:00* Test Item Value Reference Range Interpretation [...] code = 2801) 0 % 0-1 POCT-GLUCOSE [id number] 16:01:00* Test Item Value Reference Range Interpretation Comments POC-GLUCOSE METER (BEAKER) (test code = 1538) 265 mg/dL 70-110 H TESTED AT [facility] [address] [address] POCT-GLUCOSE [id number] 12:34:00* Test Item Value Reference Range Interpretation Comments POC-GLUCOSE METER (BEAKER) (test code = 1538) 271 mg/dL 70-110 H TESTED AT [facility] [address] [address] Magnesium [id number] 18:51:00* Test Item Value Reference Range Interpretation Comments Magnesium Level (test code = 33744-1) 1.8 1.3-2.1 [facility]2019-09-15 18:51:00* Test Item Value Reference Range Interpretation Comments Lipase (test code = 3040-3) < 4 8-78 L [facility] Lbcfi4601-58-36 18:51:00* Test Item Value Reference Range Interpretation Comments Magnesium Level (test code = 90200-1) 1.8 1.3-2.1 [facility]2019-09-15 18:51:00* Test Item Value Reference Range Interpretation Comments Lipase (test code = 3040-3) < 4 8-78 L [facility] Fkhfx5801-01-22 18:51:00* Test Item Value Reference Range Interpretation Comments Magnesium Level (test code = 12781-9) 1.8 1.3-2.1 [facility]2019-09-15 18:51:00* Test Item Value Reference Range Interpretation Comments Lipase (test code = 3040-3) < 4 8-78 L [facility]2019-09-15 18:51:00* Test Item Value Reference Range Interpretation Comments Lipase (test code = 3040-3) < 4 8-78 L [facility] Pzjxyqe4380-28-37 20:52:00* Test Item Value Reference Range Interpretation Comments Blood Culture (test code = 87106343) NO GROWTH AFTER 5 DAYS, FINAL REPORT [facility]2019-08-31 20:52:00* Test Item Value Reference Range Interpretation Comments Blood Culture (test code = 18068333) NO GROWTH AFTER 5 DAYS, FINAL REPORT [facility] Csjnpjj9989-24-78 20:52:00* Test Item Value Reference Range Interpretation Comments Blood Culture (test code = 57902057) NO GROWTH AFTER 5 DAYS, FINAL REPORT [facility] Center[facility] Xtkxvwk7178-26-25 20:52:00* Test Item Value Reference Range Interpretation Comments Blood Culture (test code = 69760675) NO GROWTH AFTER 5 DAYS, FINAL REPORT [facility] Lyifddq1051-25-20 15:19:00* Test Item Value Reference Range Interpretation Comments Bedside Glucose (test code = 26567-8) 261 70-120 H Meter ID: [id number] Glucose 2018-11-25 15:19:00* Test Item Value Reference Range Interpretation Comments Bedside Glucose (test code = 19641-7) 261 70-120 H Meter ID: [id number] [facility]i [facility] Glucose 2018-11-25 15:19:00* Test Item Value Reference Range Interpretation Comments Bedside Glucose (test code = 87818-7) 261 70-120 H Meter ID: [id number] Christi [facility] Glucose 2018-11-25 15:19:00* Test Item Value Reference Range Interpretation Comments Bedside Glucose (test code = 12532-2) 261 70-120 H Meter ID: [id number] Park Regional Medical CenterWhite Blood Count 2018-11-25 06:12:00* Test Item Value Reference Range Interpretation Comments White Blood Count (test code = 6690-2) 10.09 4.8-10.8 [facility] CenterRed Blood Ngibt0305-23-37 06:12:00* Test Item Value Reference Range Interpretation Comments Red Blood Count (test code = 789-8) 3.20 4.3-5.7 L [facility] CenterHemoglobin2019-08-29 06:12:00* Test Item Value Reference Range Interpretation Comments Hemoglobin (test code = 30061-8) 9.0 14.0-18.0 L [facility] CenterHematocrit2019-08-29 06:12:00* Test Item Value Reference Range Interpretation Comments Hematocrit (test code = 4544-3) 28.1 38.2-49.6 L [facility] CenterMean Corpuscular Kmrgma7203-91-90 06:12:00* Test Item Value Reference Range Interpretation Comments Mean Corpuscular Volume (test code = 787-2) 87.8 81-99 [facility] CenterMean Corpuscular Uotzhmtanz1141-80-14 06:12:00* Test Item Value Reference Range Interpretation Comments Mean Corpuscular Hemoglobin (test code = 785-6) 28.1 28-32 [facility] CenterMean Corpuscular Hemoglobin Concent 2018-11-25 06:12:00* Test Item Value Reference Range Interpretation Comments Mean Corpuscular Hemoglobin Concent (test code = 786-4) 32.0 31-35 [facility] CenterRed Cell Distribution Cokqa6931-83-70 06:12:00* Test Item Value Reference Range Interpretation Comments Red Cell Distribution Width (test code = 97770-0) 13.7 11.7 -14.4 [facility] CenterPlatelet Zlotv7972-08-16 06:12:00* Test Item Value Reference Range Interpretation Comments Platelet Count (test code = 777-3) 185 140-360 [facility] CenterNeutrophils (%) (Auto)2018-11-25 06:12:00 * Test Item Value Reference Range Interpretation Comments Neutrophils (%) (Auto) (test code = 60930-6) 60.5 38.7-80.0 [facility] CenterLymphocytes (%) (Auto)2018-11-25 06:12:00 * Test Item Value Reference Range Interpretation Comments Lymphocytes (%) (Auto) (test code = 736-9) 24.7 18.0-39.1 [facility] CenterMonocytes (%) (Auto)2018-11-25 06:12:00* Test Item Value Reference Range Interpretation Comments Monocytes (%) (Auto) (test code = 5905-5) 12.2 4.4-11.3 H [facility] CenterEosinophils (%) (Auto)2018-11-25 06:12:00 * Test Item Value Reference Range Interpretation Comments Eosinophils (%) (Auto) (test code = 713-8) 2.0 0.0-6.0 [facility] CenterBasophils (%) (Auto)2018-11-25 06:12:00* Test Item Value Reference Range Interpretation Comments Basophils (%) (Auto) (test code = 706-2) 0.5 0.0-1.0 [facility] CenterIM GRANULOCYTES %2018-11-25 06:12:00* Test Item Value Reference Range Interpretation Comments IM GRANULOCYTES % (test code = IM GRANULOCYTES %) 0.1 0.0- 1.0 [facility] CenterNeutrophils # (Auto)2018-11-25 06:12:00* Test Item Value Reference Range Interpretation Comments Neutrophils # (Auto) (test code = 751-8) 6.1 2.1-6.9 [facility] CenterLymphocytes # (Auto)2018-11-25 06:12:00* Test Item Value Reference Range Interpretation Comments Lymphocytes # (Auto) (test code = 48533-6) 2.5 1.0-3.2 [facility] CenterMonocytes # (Auto)2018-11-25 06:12:00* Test Item Value Reference Range Interpretation Comments Monocytes # (Auto) (test code = 742-7) 1.2 0.2-0.8 H [facility] CenterEosinophils # (Auto)2018-11-25 06:12:00* Test Item Value Reference Range Interpretation Comments Eosinophils # (Auto) (test code = 711-2) 0.2 0.0-0.4 [facility] CenterBasophils # (Auto)2018-11-25 06:12:00* Test Item Value Reference Range Interpretation Comments Basophils # (Auto) (test code = 704-7) 0.1 0.0-0.1 [facility] CenterAbsolute Immature Granulocyte (auto 2018-11-25 06:12:00* Test Item Value Reference Range Interpretation Comments Absolute Immature Granulocyte (auto (zeenat t code = Absolute Immature Granulocyte (auto) 0.01 0-0.1 [facility] CenterWhite Blood Huwsr9409-05-42 06:12:00* Test Item Value Reference Range Interpretation Comments White Blood Count (test code = 6690-2) 10.09 4.8-10.8 [facility] CenterRed Blood Bqsdn2495-09-53 06:12:00* Test Item Value Reference Range Interpretation Comments Red Blood Count (test code = 789-8) 3.20 4.3-5.7 L [facility] CenterHemoglobin2019-08-29 06:12:00* Test Item Value Reference Range Interpretation Comments Hemoglobin (test code = 97511-0) 9.0 14.0-18.0 L [facility] CenterHematocrit2019-08-29 06:12:00* Test Item Value Reference Range Interpretation Comments Hematocrit (test code = 4544-3) 28.1 38.2-49.6 L [facility] CenterMean Corpuscular Vjqqkx3726-17-34 06:12:00* Test Item Value Reference Range Interpretation Comments Mean Corpuscular Volume (test code = 787-2) 87.8 81-99 [facility] CenterMean Corpuscular Djprbxhprs0461-62-68 06:12:00* Test Item Value Reference Range Interpretation Comments Mean Corpuscular Hemoglobin (test code = 785-6) 28.1 28-32 [facility] CenterMean Corpuscular Hemoglobin Concent 2018-11-25 06:12:00* Test Item Value Reference Range Interpretation Comments Mean Corpuscular Hemoglobin Concent (test code = 786-4) 32.0 31-35 [facility] CenterRed Cell Distribution Sdstq1838-04-68 06:12:00* Test Item Value Reference Range Interpretation Comments Red Cell Distribution Width (test code = 01229-1) 13.7 11.7 -14.4 [facility] CenterPlatelet Snaip8401-30-54 06:12:00* Test Item Value Reference Range Interpretation Comments Platelet Count (test code = 777-3) 185 140-360 [facility] CenterNeutrophils (%) (Auto)2018-11-25 06:12:00 * Test Item Value Reference Range Interpretation Comments Neutrophils (%) (Auto) (test code = 40369-7) 60.5 38.7-80.0 [facility] CenterLymphocytes (%) (Auto)2018-11-25 06:12:00 * Test Item Value Reference Range Interpretation Comments Lymphocytes (%) (Auto) (test code = 736-9) 24.7 18.0-39.1 [facility] CenterMonocytes (%) (Auto)2018-11-25 06:12:00* Test Item Value Reference Range Interpretation Comments Monocytes (%) (Auto) (test code = 5905-5) 12.2 4.4-11.3 [facility] CenterE[facility]ophils (%) (Auto)2018-11-25 06:12:00 * Test Item Value Reference Range Interpretation Comments Eosinophils (%) (Auto) (test code = 713-8) 2.0 0.0-6.0 [facility] CenterBasophils (%) (Auto)2018-11-25 06:12:00* Test Item Value Reference Range Interpretation Comments Basophils (%) (Auto) (test code = 706-2) 0.5 0.0-1.0 [facility] CenterIM GRANULOCYTES %2018-11-25 06:12:00* Test Item Value Reference Range Interpretation Comments IM GRANULOCYTES % (test code = IM GRANULOCYTES %) 0.1 0.0- 1.0 [facility] CenterNeutrophils # (Auto)2018-11-25 06:12:00* Test Item Value Reference Range Interpretation Comments Neutrophils # (Auto) (test code = 751-8) 6.1 2.1-6.9 [facility] CenterLymphocytes # (Auto)2018-11-25 06:12:00* Test Item Value Reference Range Interpretation Comments Lymphocytes # (Auto) (test code = 32310-2) 2.5 1.0-3.2 [facility] CenterMonocytes # (Auto)2018-11-25 06:12:00* Test Item Value Reference Range Interpretation Comments Monocytes # (Auto) (test code = 742-7) 1.2 0.2-0.8 [facility] CenterEosinophils # (Auto)2018-11-25 06:12:00* Test Item Value Reference Range Interpretation Comments Eosinophils # (Auto) (test code = 711-2) 0.2 0.0-0.4 [facility] CenterBasophils # (Auto)2018-11-25 06:12:00* Test Item Value Reference Range Interpretation Comments Basophils # (Auto) (test code = 704-7) 0.1 0.0-0.1 [facility] CenterAbsolute Immature Granulocyte (auto 2018-11-25 06:12:00* Test Item Value Reference Range Interpretation Comments Absolute Immature Granulocyte (auto (zeenat t code = Absolute Immature Granulocyte (auto) 0.01 0-0.1 [facility] CenterWhite Blood Kmndc1862-66-24 06:12:00* Test Item Value Reference Range Interpretation Comments White Blood Count (test code = 6690-2) 10.09 4.8-10.8 [facility] CenterRed Blood Zayrf2360-18-16 06:12:00* Test Item Value Reference Range Interpretation Comments Red Blood Count (test code = 789-8) 3.20 4.3-5.7 L [facility] CenterHemoglobin2019-08-29 06:12:00* Test Item Value Reference Range Interpretation Comments Hemoglobin (test code = 72143-9) 9.0 14.0-18.0 L [facility] CenterHematocrit2019-08-29 06:12:00* Test Item Value Reference Range Interpretation Comments Hematocrit (test code = 4544-3) 28.1 38.2-49.6 L [facility] CenterMean Corpuscular Dqvank6463-98-00 06:12:00* Test Item Value Reference Range Interpretation Comments Mean Corpuscular Volume (test code = 787-2) 87.8 81-99 [facility] CenterMean Corpuscular Qyozstedlh9380-32-34 06:12:00* Test Item Value Reference Range Interpretation Comments Mean Corpuscular Hemoglobin (test code = 785-6) 28.1 28-32 [facility] CenterMean Corpuscular Hemoglobin Concent 2018-11-25 06:12:00* Test Item Value Reference Range Interpretation Comments Mean Corpuscular Hemoglobin Concent (test code = 786-4) 32.0 31-35 [facility] CenterRed Cell Distribution Ingml7066-72-96 06:12:00* Test Item Value Reference Range Interpretation Comments Red Cell Distribution Width (test code = 51135-9) 13.7 11.7 -14.4 [facility] CenterPlatelet Yuzpm7902-83-83 06:12:00* Test Item Value Reference Range Interpretation Comments Platelet Count (test code = 777-3) 185 140-360 [facility] CenterNeutrophils (%) (Auto)2018-11-25 06:12:00 * Test Item Value Reference Range Interpretation Comments Neutrophils (%) (Auto) (test code = 67397-8) 60.5 38.7-80.0 [facility] CenterLymphocytes (%) (Auto)2018-11-25 06:12:00 * Test Item Value Reference Range Interpretation Comments Lymphocytes (%) (Auto) (test code = 736-9) 24.7 18.0-39.1 [facility] CenterMonocytes (%) (Auto)2018-11-25 06:12:00* Test Item Value Reference Range Interpretation Comments Monocytes (%) (Auto) (test code = 5905-5) 12.2 4.4-11.3 [facility] CenterEosinophils (%) (Auto)2018-11-25 06:12:00 * Test Item Value Reference Range Interpretation Comments Eosinophils (%) (Auto) (test code = 713-8) 2.0 0.0-6.0 [facility] CenterBasophils (%) (Auto)2018-11-25 06:12:00* Test Item Value Reference Range Interpretation Comments Basophils (%) (Auto) (test code = 706-2) 0.5 0.0-1.0 [facility] CenterIM GRANULOCYTES %2018-11-25 06:12:00* Test Item Value Reference Range Interpretation Comments IM GRANULOCYTES % (test code = IM GRANULOCYTES %) 0.1 0.0- 1.0 [facility] CenterNeutrophils # (Auto)2018-11-25 06:12:00* Test Item Value Reference Range Interpretation Comments Neutrophils # (Auto) (test code = 751-8) 6.1 2.1-6.9 [facility] CenterLymphocytes # (Auto)2018-11-25 06:12:00* Test Item Value Reference Range Interpretation Comments Lymphocytes # (Auto) (test code = 16935-5) 2.5 1.0-3.2 [facility] CenterMonocytes # (Auto)2018-11-25 06:12:00* Test Item Value Reference Range Interpretation Comments Monocytes # (Auto) (test code = 742-7) 1.2 0.2-0.8 H [facility] CenterEosinophils # (Auto)2018-11-25 06:12:00* Test Item Value Reference Range Interpretation Comments Eosinophils # (Auto) (test code = 711-2) 0.2 0.0-0.4 [facility] CenterBasophils # (Auto)2018-11-25 06:12:00* Test Item Value Reference Range Interpretation Comments Basophils # (Auto) (test code = 704-7) 0.1 0.0-0.1 [facility] CenterAbsolute Immature Granulocyte (auto 2018-11-25 06:12:00* Test Item Value Reference Range Interpretation Comments Absolute Immature Granulocyte (auto (zeenat t code = Absolute Immature Granulocyte (auto) 0.01 0-0.1 [facility] CenterWhite Blood Felsu5268-01-83 06:12:00* Test Item Value Reference Range Interpretation Comments White Blood Count (test code = 6690-2) 10.09 4.8-10.8 [facility] CenterRed Blood Jfijr8993-82-49 06:12:00* Test Item Value Reference Range Interpretation Comments Red Blood Count (test code = 789-8) 3.20 4.3-5.7 L [facility] CenterHemoglobin2019-08-29 06:12:00* Test Item Value Reference Range Interpretation Comments Hemoglobin (test code = 99051-8) 9.0 14.0-18.0 L [facility] CenterHematocrit2019-08-29 06:12:00* Test Item Value Reference Range Interpretation Comments Hematocrit (test code = 4544-3) 28.1 38.2-49.6 L [facility] CenterMean Corpuscular Sardva9213-34-51 06:12:00* Test Item Value Reference Range Interpretation Comments Mean Corpuscular Volume (test code = 787-2) 87.8 81-99 [facility] CenterMean Corpuscular Hfjepxvhsx0971-15-72 06:12:00* Test Item Value Reference Range Interpretation Comments Mean Corpuscular Hemoglobin (test code = 785-6) 28.1 28-32 [facility] CenterMean Corpuscular Hemoglobin Concent 2018-11-25 06:12:00* Test Item Value Reference Range Interpretation Comments Mean Corpuscular Hemoglobin Concent (test code = 786-4) 32.0 31-35 [facility] CenterRed Cell Distribution Wgxae9352-91-65 06:12:00* Test Item Value Reference Range Interpretation Comments Red Cell Distribution Width (test code = 86915-2) 13.7 11.7 -14.4 [facility] CenterPlatelet Dsauv5505-93-15 06:12:00* Test Item Value Reference Range Interpretation Comments Platelet Count (test code = 777-3) 185 140-360 [facility] CenterNeutrophils (%) (Auto)2018-11-25 06:12:00 * Test Item Value Reference Range Interpretation Comments Neutrophils (%) (Auto) (test code = 10186-7) 60.5 38.7-80.0 [facility] CenterLymphocytes (%) (Auto)2018-11-25 06:12:00 * Test Item Value Reference Range Interpretation Comments Lymphocytes (%) (Auto) (test code = 736-9) 24.7 18.0-39.1 [facility] CenterMonocytes (%) (Auto)2018-11-25 06:12:00* Test Item Value Reference Range Interpretation Comments Monocytes (%) (Auto) (test code = 5905-5) 12.2 4.4-11.3 H [facility] CenterEosinophils (%) (Auto)2018-11-25 06:12:00 * Test Item Value Reference Range Interpretation Comments Eosinophils (%) (Auto) (test code = 713-8) 2.0 0.0-6.0 [facility] CenterBasophils (%) (Auto)2018-11-25 06:12:00* Test Item Value Reference Range Interpretation Comments Basophils (%) (Auto) (test code = 706-2) 0.5 0.0-1.0 [facility] CenterIM GRANULOCYTES %2018-11-25 06:12:00* Test Item Value Reference Range Interpretation Comments IM GRANULOCYTES % (test code = IM GRANULOCYTES %) 0.1 0.0- 1.0 [facility] CenterNeutrophils # (Auto)2018-11-25 06:12:00* Test Item Value Reference Range Interpretation Comments Neutrophils # (Auto) (test code = 751-8) 6.1 2.1-6.9 [facility] CenterLymphocytes # (Auto)2018-11-25 06:12:00* Test Item Value Reference Range Interpretation Comments Lymphocytes # (Auto) (test code = 22312-6) 2.5 1.0-3.2 [facility] CenterMonocytes # (Auto)2018-11-25 06:12:00* Test Item Value Reference Range Interpretation Comments Monocytes # (Auto) (test code = 742-7) 1.2 0.2-0.8 H [facility] CenterEosinophils # (Auto)2018-11-25 06:12:00* Test Item Value Reference Range Interpretation Comments Eosinophils # (Auto) (test code = 711-2) 0.2 0.0-0.4 [facility] CenterBasophils # (Auto)2018-11-25 06:12:00* Test Item Value Reference Range Interpretation Comments Basophils # (Auto) (test code = 704-7) 0.1 0.0-0.1 [facility] CenterAbsolute Immature Granulocyte (auto 2018-11-25 06:12:00* Test Item Value Reference Range Interpretation Comments Absolute Immature Granulocyte (auto (zeenat t code = Absolute Immature Granulocyte (auto) 0.01 0-0.1 [facility] Centerodium Sxdsc6766-27-60 05:57:00* Test Item Value Reference Range Interpretation Comments Sodium Level (test code = 2951-2) 138 136-145 [facility] CenterPotassium Gwvoi9492-05-83 05:57:00* Test Item Value Reference Range Interpretation Comments Potassium Level (test code = 2823-3) 3.3 3.5-5.1 L [facility] CenterChloride Fipbo7783-87-63 05:57:00* Test Item Value Reference Range Interpretation Comments Chloride Level (test code = 2075-0) 105 98-107 [facility] CenterCarbon Dioxide Uixgw6034-83-71 05:57:00* Test Item Value Reference Range Interpretation Comments Carbon Dioxide Level (test code = 2028-9) 27 [facility] CenterAnion Gua9924-37-13 05:57:00* Test Item Value Reference Range Interpretation Comments Anion Gap (test code = 20081-2) 9.3 8-16 [facility] CenterBlood Urea Looeksqo5363-31-37 05:57:00* Test Item Value Reference Range Interpretation Comments Blood Urea Nitrogen (test code = 3094-0) 15 7-26 [facility] CenterCreatinine2019-08-29 05:57:00* Test Item Value Reference Range Interpretation Comments Creatinine (test code = 2160-0) 1.17 0.72-1.25 [facility] CenterBUN/Creatinine Aoorb7212-08-14 05:57:00* Test Item Value Reference Range Interpretation Comments BUN/Creatinine Ratio (test code = 3097-3) 13 6-25 [facility] CenterEstimat Glomerular Filtration Rate 2018-11-25 05:57:00* Test Item Value Reference Range Interpretation Comments Estimat Glomerular Filtration Rate (test code = 722540719) > 60 >60 Ranges were taken from the National Kidney Disease Education Program and the [facility] Foundation literature.Reference ranges:60 or greater: Waqkzf36-77 ( for 3 consecutive months): Chronic kidney disease 15 or less: Kidney failureCedar Park Regional Medical CenterGlucose Nzgpx0958-06-78 05:57:00* Test Item Value Reference Range Interpretation Comments Glucose Level (test code = ZCN2536) 247 74-118 H [facility] CenterCalcium Kotyl5551-70-79 05:57:00* Test Item Value Reference Range Interpretation Comments Calcium Level (test code = 99301-3) 8.4 8.4-10.2 [facility] Medical Centerodium Xadsk7468-42-89 05:57:00* Test Item Value Reference Range Interpretation Comments Sodium Level (test code = 2951-2) 138 136-145 [facility] CenterPotassium Lrdjj0673-56-67 05:57:00* Test Item Value Reference Range Interpretation Comments Potassium Level (test code = 2823-3) 3.3 3.5-5.1 L [facility] CenterChloride Oqxws6433-11-69 05:57:00* Test Item Value Reference Range Interpretation Comments Chloride Level (test code = 2075-0) 105 98-107 [facility] CenterCarbon Dioxide Vfjda3765-12-47 05:57:00* Test Item Value Reference Range Interpretation Comments Carbon Dioxide Level (test code = 2028-9) 27 22-29 [facility] CenterAnion Zkn6353-22-43 05:57:00* Test Item Value Reference Range Interpretation Comments Anion Gap (test code = 21774-3) 9.3 8-16 [facility] CenterBlood Urea Xttwaqgn4373-92-95 05:57:00* Test Item Value Reference Range Interpretation Comments Blood Urea Nitrogen (test code = 3094-0) 15 7-26 [facility] CenterCreatinine2019-08-29 05:57:00* Test Item Value Reference Range Interpretation Comments Creatinine (test code = 2160-0) 1.17 0.72-1.25 [facility] CenterBUN/Creatinine Zlgvj7737-41-08 05:57:00* Test Item Value Reference Range Interpretation Comments BUN/Creatinine Ratio (test code = 3097-3) 13 6-25 [facility] CenterEstimat Glomerular Filtration Rate 2018-11-25 05:57:00* Test Item Value Reference Range Interpretation Comments Estimat Glomerular Filtration Rate (test code = 622703575) > 60 >60 Ranges were taken from the National Kidney Disease Education Program and the [facility] Foundation literature.Reference ranges:60 or greater: Ukoxmc50-28 ( for 3 consecutive months): Chronic kidney disease 15 or less: Kidney failureCedar Park Regional Medical CenterGlucose Eeinm0665-55-87 05:57:00* Test Item Value Reference Range Interpretation Comments Glucose Level (test code = SRZ8103) 247 74-118 H [facility] CenterCalcium Qufxd1386-50-01 05:57:00* Test Item Value Reference Range Interpretation Comments Calcium Level (test code = 15426-3) 8.4 8.4-10.2 [facility] Medical Centerodium Ommwo2560-29-00 05:57:00* Test Item Value Reference Range Interpretation Comments Sodium Level (test code = 2951-2) 138 136-145 [facility] CenterPotassium Qapdg4436-57-70 05:57:00* Test Item Value Reference Range Interpretation Comments Potassium Level (test code = 2823-3) 3.3 3.5-5.1 L [facility] CenterChloride Soofv7229-00-10 05:57:00* Test Item Value Reference Range Interpretation Comments Chloride Level (test code = 2075-0) 105 98-107 [facility] CenterCarbon Dioxide Rihih3231-57-95 05:57:00* Test Item Value Reference Range Interpretation Comments Carbon Dioxide Level (test code = 2028-9) 27 22-29 [facility] CenterAnion Zzv6828-09-46 05:57:00* Test Item Value Reference Range Interpretation Comments Anion Gap (test code = 44167-7) 9.3 8-16 [facility] CenterBlood Urea Alcfqmkm5333-09-64 05:57:00* Test Item Value Reference Range Interpretation Comments Blood Urea Nitrogen (test code = 3094-0) 15 7-26 [facility] CenterCreatinine2019-08-29 05:57:00* Test Item Value Reference Range Interpretation Comments Creatinine (test code = 2160-0) 1.17 0.72-1.25 [facility] CenterBUN/Creatinine Ktrvo6782-78-39 05:57:00* Test Item Value Reference Range Interpretation Comments BUN/Creatinine Ratio (test code = 3097-3) 13 09-21 [facility] CenterEstimat Glomerular Filtration Rate 2018-11-25 05:57:00* Test Item Value Reference Range Interpretation Comments Estimat Glomerular Filtration Rate (test code = 914156407) > 60 >60 Ranges were taken from the National Kidney Disease Education Program and the [facility] literature.Reference ranges:60 or greater: Ezgnkf90-10 ( for 3 consecutive months): Chronic kidney disease 15 or less: Kidney failureCedar Park Regional Medical CenterGlucose Vtall9372-17-74 05:57:00* Test Item Value Reference Range Interpretation Comments Glucose Level (test code = KBP9292) 247 74-118 H [facility] CenterCalcium Dsldh3120-79-76 05:57:00* Test Item Value Reference Range Interpretation Comments Calcium Level (test code = 90549-3) 8.4 8.4-10.2 [facility] Medical Centerodium Eyrjn2924-96-03 05:57:00* Test Item Value Reference Range Interpretation Comments Sodium Level (test code = 2951-2) 138 136-145 [facility] CenterPotassium Wxzcz3126-73-39 05:57:00* Test Item Value Reference Range Interpretation Comments Potassium Level (test code = 2823-3) 3.3 3.5-5.1 L [facility] CenterChloride Wxxro1162-16-43 05:57:00* Test Item Value Reference Range Interpretation Comments Chloride Level (test code = 2075-0) 105 98-107 [facility] CenterCarbon Dioxide Hzidd0680-40-75 05:57:00* Test Item Value Reference Range Interpretation Comments Carbon Dioxide Level (test code = 2028-9) 27 - [facility] CenterAnion Cyh4942-38-20 05:57:00* Test Item Value Reference Range Interpretation Comments Anion Gap (test code = 56328-7) 9.3 8-16 [facility] CenterBlood Urea Qvleeley3873-82-71 05:57:00* Test Item Value Reference Range Interpretation Comments Blood Urea Nitrogen (test code = 3094-0) 15 7-26 [facility] CenterCreatinine2019-08-29 05:57:00* Test Item Value Reference Range Interpretation Comments Creatinine (test code = 2160-0) 1.17 0.72-1.25 [facility] CenterBUN/Creatinine Kgrec1015-44-38 05:57:00* Test Item Value Reference Range Interpretation Comments BUN/Creatinine Ratio (test code = 3097-3) 13 - [facility] CenterEstimat Glomerular Filtration Rate 2018-11-25 05:57:00* Test Item Value Reference Range Interpretation Comments Estimat Glomerular Filtration Rate (test code = 957934523) > 60 >60 Ranges were taken from the National Kidney Disease Education Program and the [facility] literature.Reference ranges:60 or greater: Qiuuaq34-98 ( for 3 consecutive months): Chronic kidney disease 15 or less: Kidney failureCedar Park Regional Medical CenterGlucose Wyezq5793-85-86 05:57:00* Test Item Value Reference Range Interpretation Comments Glucose Level (test code = MWT8676) 247 74-118 H [facility] CenterCalcium Fetak4234-52-10 05:57:00* Test Item Value Reference Range Interpretation Comments Calcium Level (test code = 63798-5) 8.4 8.4-10.2 [facility] CenterBlood Fgghykw0797-64-50 20:52:00* Test Item Value Reference Range Interpretation Comments Blood Culture (test code = 99522450) NO GROWTH AFTER 48 HOURS [facility] CenterUrine JTC8982-77-01 10:48:00* Test Item Value Reference Range Interpretation Comments Urine WBC (test code = 5821-4) 6-10 0-5 H [facility] CenterUrine UTW7616-01-13 10:48:00* Test Item Value Reference Range Interpretation Comments Urine RBC (test code = 52969-5) 0-5 0-5 [facility] CenterUrine Vfsuqpkz2647-60-22 10:48:00* Test Item Value Reference Range Interpretation Comments Urine Bacteria (test code = 62139-4) MODERATE NONE H [facility] CenterUrine Epithelial Mqzcd7819-80-97 10:48:00 * Test Item Value Reference Range Interpretation Comments Urine Epithelial Cells (test code = 34376-2) FEW NONE [facility] LQB1815-30-31 10:48:00* Test Item Value Reference Range Interpretation Comments Urine WBC (test code = 5821-4) 6-10 0-5 H [facility] MFY3416-43-75 10:48:00* Test Item Value Reference Range Interpretation Comments Urine RBC (test code = 78657-5) 0-5 0-5 [facility] CenterUrine Prumeuur7374-90-42 10:48:00* Test Item Value Reference Range Interpretation Comments Urine Bacteria (test code = 98003-0) MODERATE NONE H [facility] CenterUrine Epithelial Hllnm8132-91-46 10:48:00 * Test Item Value Reference Range Interpretation Comments Urine Epithelial Cells (test code = 94244-6) FEW NONE [facility] CenterUrine FJM6033-54-03 10:48:00* Test Item Value Reference Range Interpretation Comments Urine WBC (test code = 5821-4) 6-10 0-5 H [facility] CJU3336-66-42 10:48:00* Test Item Value Reference Range Interpretation Comments Urine RBC (test code = 46137-2) 0-5 0-5 [facility] Nbglmlum9265-54-29 10:48:00* Test Item Value Reference Range Interpretation Comments Urine Bacteria (test code = 88179-0) MODERATE NONE H [facility] CenterUrine Epithelial Xjdoo8968-16-80 10:48:00 * Test Item Value Reference Range Interpretation Comments Urine Epithelial Cells (test code = 77414-2) FEW NONE [facility] CenterUrine LEL4794-51-83 10:48:00* Test Item Value Reference Range Interpretation Comments Urine WBC (test code = 5821-4) 6-10 0-5 H [facility] CenterUrine DBZ6437-47-37 10:48:00* Test Item Value Reference Range Interpretation Comments Urine RBC (test code = 55138-9) 0-5 0-5 [facility] CenterUrine Nfgxopcd3208-99-60 10:48:00* Test Item Value Reference Range Interpretation Comments Urine Bacteria (test code = 07728-0) MODERATE NONE H [facility] CenterUrine Epithelial Ztzms6150-82-16 10:48:00 * Test Item Value Reference Range Interpretation Comments Urine Epithelial Cells (test code = 93320-0) FEW NONE [facility] CenterUrine FHU5840-81-78 10:48:00* Test Item Value Reference Range Interpretation Comments Urine WBC (test code = 5821-4) 6-10 0-5 H [facility] CenterUrine WHS2973-71-28 10:48:00* Test Item Value Reference Range Interpretation Comments Urine RBC (test code = 51945-2) 0-5 0-5 [facility] CenterUrine Xqswvvpa6947-34-54 10:48:00* Test Item Value Reference Range Interpretation Comments Urine Bacteria (test code = 85462-1) MODERATE NONE H [facility] CenterUrine Epithelial Goupk6549-46-11 10:48:00 * Test Item Value Reference Range Interpretation Comments Urine Epithelial Cells (test code = 74503-1) FEW NONE [facility] CenterUrine Jdrvz1073-82-49 10:24:00* Test Item Value Reference Range Interpretation Comments Urine Color (test code = 5778-6) YELLOW YELLOW [facility] CenterUrine Cvscott3370-54-27 10:24:00* Test Item Value Reference Range Interpretation Comments Urine Clarity (test code = 55545-7) CLEAR CLEAR [facility] CenterUrine Specific Glimisr4032-41-92 10:24:00 * Test Item Value Reference Range Interpretation Comments Urine Specific [place] (test code = 5811-5) 1.025 1.010-1.02 5 [facility] CenterU[facility] bP0172-71-50 10:24:00* Test Item Value Reference Range Interpretation Comments Urine pH (test code = 22347-3) 6 5-7 [facility] CenterUrine Leukocyte Xqnhydst8355-34-90 10:24:00* Test Item Value Reference Range Interpretation Comments Urine Leukocyte Esterase (test code = 01441-8) NEGATIVE NEGATIV E [facility] Nujvdza4206-71-24 10:24:00* Test Item Value Reference Range Interpretation Comments Urine Nitrite (test code = 82558-6) NEGATIVE NEGATIVE [facility] Qfzmhsm9421-50-42 10:24:00* Test Item Value Reference Range Interpretation Comments Urine Protein (test code = 56700-3) NEGATIVE NEGATIVE [facility] Glucose (UA)2018-11-24 10:24:00* Test Item Value Reference Range Interpretation Comments Urine Glucose (UA) (test code = 28463-9) NEGATIVE NEGATIVE [facility] CenterU[facility] Koebmho8505-96-19 10:24:00* Test Item Value Reference Range Interpretation Comments Urine Ketones (test code = 54255-9) 1+ NEGATIVE H [facility] Dlkbxphrdwrt8987-85-07 10:24:00* Test Item Value Reference Range Interpretation Comments Urine Urobilinogen (test code = 01880-6) 0.2 0.2-1 [facility] Pijxmanap1020-14-24 10:24:00* Test Item Value Reference Range Interpretation Comments Urine Bilirubin (test code = 1977-8) NEGATIVE NEGATIVE [facility] Ywnvw9735-83-41 10:24:00* Test Item Value Reference Range Interpretation Comments Urine Blood (test code = 70078-6) NEGATIVE NEGATIVE [facility] Ptjsw1570-94-55 10:24:00* Test Item Value Reference Range Interpretation Comments Urine Color (test code = 5778-6) YELLOW YELLOW [facility] Kpxgjlm2555-33-58 10:24:00* Test Item Value Reference Range Interpretation Comments Urine Clarity (test code = 00569-7) CLEAR CLEAR [facility] Specific Mdnsory8832-73-65 10:24:00 * Test Item Value Reference Range Interpretation Comments Urine Specific [place] (test code = 5811-5) 1.025 1.010-1.02 5 [facility] sC5920-71-30 10:24:00* Test Item Value Reference Range Interpretation Comments Urine pH (test code = 15177-1) 6 5-7 [facility] Leukocyte Atafghrs2908-42-85 10:24:00* Test Item Value Reference Range Interpretation Comments Urine Leukocyte Esterase (test code = 16355-5) NEGATIVE NEGATIV E [facility] Bqinfgg7906-81-40 10:24:00* Test Item Value Reference Range Interpretation Comments Urine Nitrite (test code = 61130-3) NEGATIVE NEGATIVE [facility] Qpqowfa5825-24-01 10:24:00* Test Item Value Reference Range Interpretation Comments Urine Protein (test code = 71669-5) NEGATIVE NEGATIVE [facility] Glucose (UA)2018-11-24 10:24:00* Test Item Value Reference Range Interpretation Comments Urine Glucose (UA) (test code = 82749-7) NEGATIVE NEGATIVE [facility] Ekalzui7719-94-63 10:24:00* Test Item Value Reference Range Interpretation Comments Urine Ketones (test code = 98194-8) 1+ NEGATIVE H [facility] Aogiueuhqmiy6217-79-49 10:24:00* Test Item Value Reference Range Interpretation Comments Urine Urobilinogen (test code = 53116-5) 0.2 0.2-1 [facility] Lyhbsrpjt5119-69-01 10:24:00* Test Item Value Reference Range Interpretation Comments Urine Bilirubin (test code = 1977-8) NEGATIVE NEGATIVE [facility] Abukg4814-49-67 10:24:00* Test Item Value Reference Range Interpretation Comments Urine Blood (test code = 54737-0) NEGATIVE NEGATIVE [facility] Xidlp4814-45-03 10:24:00* Test Item Value Reference Range Interpretation Comments Urine Color (test code = 5778-6) YELLOW YELLOW [facility] Zjxqqio3269-07-62 10:24:00* Test Item Value Reference Range Interpretation Comments Urine Clarity (test code = 55670-3) CLEAR CLEAR [facility] Specific Btxusmr6944-12-50 10:24:00 * Test Item Value Reference Range Interpretation Comments Urine Specific [place] (test code = 5811-5) 1.025 1.010-1.02 5 [facility] mF0899-94-82 10:24:00* Test Item Value Reference Range Interpretation Comments Urine pH (test code = 27740-0) 6 5-7 [facility] Leukocyte Edpinxbg0501-44-56 10:24:00* Test Item Value Reference Range Interpretation Comments Urine Leukocyte Esterase (test code = 53062-3) NEGATIVE NEGATIV E [facility] Pgahfux3743-32-45 10:24:00* Test Item Value Reference Range Interpretation Comments Urine Nitrite (test code = 69218-0) NEGATIVE NEGATIVE [facility] Sugwhwv4149-23-76 10:24:00* Test Item Value Reference Range Interpretation Comments Urine Protein (test code = 40308-3) NEGATIVE NEGATIVE [facility] Glucose (UA)2018-11-24 10:24:00* Test Item Value Reference Range Interpretation Comments Urine Glucose (UA) (test code = 44467-7) NEGATIVE NEGATIVE [facility] Kjwudsc5463-04-06 10:24:00* Test Item Value Reference Range Interpretation Comments Urine Ketones (test code = 77989-9) 1+ NEGATIVE H [facility] Dqbcasqgmwye0653-20-63 10:24:00* Test Item Value Reference Range Interpretation Comments Urine Urobilinogen (test code = 98810-2) 0.2 0.2-1 [facility] Pijfasuqb0759-58-88 10:24:00* Test Item Value Reference Range Interpretation Comments Urine Bilirubin (test code = 1977-8) NEGATIVE NEGATIVE [facility] Hcwrn3054-99-86 10:24:00* Test Item Value Reference Range Interpretation Comments Urine Blood (test code = 02469-1) NEGATIVE NEGATIVE [facility] Vppha5843-70-83 10:24:00* Test Item Value Reference Range Interpretation Comments Urine Color (test code = 5778-6) YELLOW YELLOW [facility] Ihepdop3775-35-70 10:24:00* Test Item Value Reference Range Interpretation Comments Urine Clarity (test code = 77204-2) CLEAR CLEAR [facility] Specific Gqlinzm2793-83-61 10:24:00 * Test Item Value Reference Range Interpretation Comments Urine Specific [place] (test code = 5811-5) 1.025 1.010-1.02 5 [facility] bE4597-29-68 10:24:00* Test Item Value Reference Range Interpretation Comments Urine pH (test code = 28344-5) 6 5-7 [facility] Leukocyte Cgsamryl0848-00-93 10:24:00* Test Item Value Reference Range Interpretation Comments Urine Leukocyte Esterase (test code = 27358-0) NEGATIVE NEGATIV E [facility] Nbvdmfp5213-76-07 10:24:00* Test Item Value Reference Range Interpretation Comments Urine Nitrite (test code = 85838-6) NEGATIVE NEGATIVE [facility] Cetsrwd0573-84-81 10:24:00* Test Item Value Reference Range Interpretation Comments Urine Protein (test code = 63074-3) NEGATIVE NEGATIVE [facility] Glucose (UA)2018-11-24 10:24:00* Test Item Value Reference Range Interpretation Comments Urine Glucose (UA) (test code = 52188-2) NEGATIVE NEGATIVE [facility] Cahcgem9253-54-41 10:24:00* Test Item Value Reference Range Interpretation Comments Urine Ketones (test code = 74141-9) 1+ NEGATIVE H [facility] Nmfdyyfejdux3166-24-96 10:24:00* Test Item Value Reference Range Interpretation Comments Urine Urobilinogen (test code = 97613-8) 0.2 0.2-1 [facility] Evjjuyoyw4807-49-60 10:24:00* Test Item Value Reference Range Interpretation Comments Urine Bilirubin (test code = 1977-8) NEGATIVE NEGATIVE [facility] Jmyjt6992-88-49 10:24:00* Test Item Value Reference Range Interpretation Comments Urine Blood (test code = 44397-0) NEGATIVE NEGATIVE [facility] Qulqw0099-21-77 10:24:00* Test Item Value Reference Range Interpretation Comments Urine Color (test code = 5778-6) YELLOW YELLOW [facility] Lyvukmd7898-53-51 10:24:00* Test Item Value Reference Range Interpretation Comments Urine Clarity (test code = 11484-4) CLEAR CLEAR [facility] Specific Toyexwp2355-86-82 10:24:00 * Test Item Value Reference Range Interpretation Comments Urine Specific [place] (test code = 5811-5) 1.025 1.010-1.02 5 [facility] lT9870-11-22 10:24:00* Test Item Value Reference Range Interpretation Comments Urine pH (test code = 56687-9) 6 5-7 [facility] Leukocyte Vuginkkw2096-21-12 10:24:00* Test Item Value Reference Range Interpretation Comments Urine Leukocyte Esterase (test code = 80410-0) NEGATIVE NEGATIV E [facility] Yysjdrl1799-38-73 10:24:00* Test Item Value Reference Range Interpretation Comments Urine Nitrite (test code = 31001-6) NEGATIVE NEGATIVE [facility] Frecfur1131-36-61 10:24:00* Test Item Value Reference Range Interpretation Comments Urine Protein (test code = 97820-0) NEGATIVE NEGATIVE [facility] Glucose (UA)2018-11-24 10:24:00* Test Item Value Reference Range Interpretation Comments Urine Glucose (UA) (test code = 28650-2) NEGATIVE NEGATIVE [facility] Rcnlixw9568-42-82 10:24:00* Test Item Value Reference Range Interpretation Comments Urine Ketones (test code = 16029-0) 1+ NEGATIVE H [facility] Eivdqybridjl1670-51-58 10:24:00* Test Item Value Reference Range Interpretation Comments Urine Urobilinogen (test code = 96647-0) 0.2 0.2-1 [facility] Nfvawnanc3899-60-17 10:24:00* Test Item Value Reference Range Interpretation Comments Urine Bilirubin (test code = 1977-8) NEGATIVE NEGATIVE [facility] Ryqtf6304-96-01 10:24:00* Test Item Value Reference Range Interpretation Comments Urine Blood (test code = 94864-4) NEGATIVE NEGATIVE [facility] color nnigjnxhctizh2863-97-60 08:40:00* Test Item Value Reference Range Interpretation Comments Urine Color (test code = 5778-6) YELLOW YELLOW [facility] tcqnbef9684-73-57 08:40:00* Test Item Value Reference Range Interpretation Comments Urine Clarity (test code = 98549-8) CLEAR CLEAR [facility] gravity of Urine by Test strip 2018-11-24 08:40:00* Test Item Value Reference Range Interpretation Comments Urine Specific [place] (test code = 5811-5) 1.025 1.010-1.02 5 [facility] pH measurement by automated test qbuwe1643-34-85 08:40:00* Test Item Value Reference Range Interpretation Comments Urine pH (test code = 50047-8) 6 5-7 [facility] leukocyte esterase detection by automated test ztwib8834-33-90 08:40:00* Test Item Value Reference Range Interpretation Comments Urine Leukocyte Esterase (test code = 60124-1) NEGATIVE NEGATIV E [facility] nitrite detection by automated test sipbb0099-52-08 08:40:00* Test Item Value Reference Range Interpretation Comments Urine Nitrite (test code = 96040-4) NEGATIVE NEGATIVE [facility] protein detection by automated test qcpvq9008-50-03 08:40:00* Test Item Value Reference Range Interpretation Comments Urine Protein (test code = 39925-3) NEGATIVE NEGATIVE [facility] glucose detection by automated test wenlj6002-80-07 08:40:00* Test Item Value Reference Range Interpretation Comments Urine Glucose (UA) (test code = 17572-2) NEGATIVE NEGATIVE [facility] ketones detection by automated test tcela6892-44-21 08:40:00* Test Item Value Reference Range Interpretation Comments Urine Ketones (test code = 12901-7) 1+ NEGATIVE [facility] urobilinogen measurement by test strip (mass/volume)2018-11-24 08:40:00* Test Item Value Reference Range Interpretation Comments Urine Urobilinogen (test code = 04625-2) 0.2 0.2-1 [facility] total bilirubin pueexdquj2786-24-40 08:40:00* Test Item Value Reference Range Interpretation Comments Urine Bilirubin (test code = 1977-8) NEGATIVE NEGATIVE [facility] erythrocytes ubewjulwy5613-93-66 08:40:00* Test Item Value Reference Range Interpretation Comments Urine Blood (test code = 15831-3) NEGATIVE NEGATIVE [facility] CenterAutomated urine sediment leukocyte count by microscopy (number/high power field)2018-11-24 08:40:00* Test Item Value Reference Range Interpretation Comments Urine WBC (test code = 5821-4) 6-10 0-5 [facility] CenterErythrocytes detection in urine sediment by light zvwbkhcqmq2299-95-08 08:40:00* Test Item Value Reference Range Interpretation Comments Urine RBC (test code = 27976-4) 0-5 0-5 [facility] CenterBacteria detection in urine sediment by light gvpngvxssz6019-11-28 08:40:00* Test Item Value Reference Range Interpretation Comments Urine Bacteria (test code = 21499-5) MODERATE NONE [facility] CenterEpithelial cells detection in urine sediment by light gvjpgifyxn7866-23-04 08:40:00* Test Item Value Reference Range Interpretation Comments Urine Epithelial Cells (test code = 69860-5) FEW NONE [facility] CenterLipase2019-08-28 03:50:00* Test Item Value Reference Range Interpretation Comments Lipase (test code = 3040-3) < 4 8-78 L [facility] CenterC[facility] 1 VEW - FOWI6740-50-93 18:41:00 [facility] [address] [address] Patient Name: BREE LINDSAY MR #: [id number] : 1975 Age/Sex: 42/M Req #: [id number] Adm Physician: ISACC JAVED MD Ordered by: NEIL PEREZ MD Report #: [id number] Location: [facility] Room/Bed: [place] [address] Procedure: [id number] HOPD/CXR 1 VEW - HOPD Exam Date: 11/22/18 Exam Time : 1755 REPORT STATUS: Signed EXA MINATION: CXR 1 VIEW - HOPD COMPARISON: None INDICATION: Hemateme sis [id number] DISCUSSION: Frontal view of the chest [...] on 11/22/181843 COPY TO: NEIL PEREZ MD PTCZGT4959-28-71 11:31:00* Test Item Value Reference Range Interpretation Comments GLUBED (test code = GLUBED) 163 mg/dL 74-106 H Performed by certified raisin separator operator at [facility] EKAMFD6477-65-87 05:52:00* Test Item Value Reference Range Interpretation Comments GLUBED (test code = GLUBED) 339 mg/dL 74-106 H Performed by certified raisin separator operator at [facility] BASIC METABOLIC PQATJ1014-64-55 05:04:00* Test Item Value Reference Range Interpretation [...] code = CA) 8.6 mg/dL 8.5-10.1 N MLTUCRBVPO7409-17-22 05:04:00* Test Item Value Reference Range Interpretation Comments PHOSPHORUS (test code = PHOS) 2.5 mg/dL 2.5-4.9 N GRNOILWWL2778-04-36 05:04:00* Test Item Value Reference Range Interpretation Comments MAGNESIUM (test code = MAG) 1.7 mg/dL 1.8-2.4 L CBC W/AUTO XUIL5216-65-88 04:58:00* Test Item Value Reference Range Interpretation [...] (test code = MDIFF) NO BASIC METABOLIC IKKDD3199-20-36 04:54:00* Test Item Value Reference Range Interpretation [...] CALCIUM (test code = CA) mg/dL 8.5-10.1 PSASEYQNXQ4432-34-86 04:54:00* Test Item Value Reference Range Interpretation Comments PHOSPHORUS (test code = PHOS) mg/dL 2.5-4.9 YDKGMSTQQ9151-23-38 04:54:00* Test Item Value Reference Range Interpretation Comments MAGNESIUM (test code = MAG) mg/dL 1.8-2.4 HBXPWX2527-51-71 21:18:00* Test Item Value Reference Range Interpretation Comments GLUBED (test code = GLUBED) 363 mg/dL 74-106 H Performed by certified raisin separator operator at [facility] SMNC8M9995-63-39 18:20:00* Test Item Value Reference Range Interpretation Comments GLYCOSYLATED HEMOGLOBIN (HA1C) (test code = GLYHGB) 9.0 % HbA1 4. 8-6.0 H ESTIMATED AVERAGE GLUCOSE (test code = EAG) 212 MG/DL GLKRGK9080-85-90 17:42:00* Test Item Value Reference Range Interpretation Comments GLUBED (test code = GLUBED) 216 mg/dL 74-106 H Performed by certified raisin separator operator at [facility] SIUIFX2197-60-94 13:09:00* Test Item Value Reference Range Interpretation Comments GLUBED (test code = GLUBED) 209 mg/dL 74-106 H Performed by certified raisin separator operator at [facility] LACTIC ABJR2052-85-21 08:53:00* Test Item Value Reference Range Interpretation [...] taking into account the patients history. PROTHROMBIN DYQP0565-63-99 07:23:00* Test Item Value Reference Range Interpretation [...] (2.5-3.5) IS PATIENT ON ANTICOAGULANTS? NTHROMBOPLASTIN TIME XVVPXFZ8470-28-78 07:23:00* Test Item Value Reference Range Interpretation Comments THROMBOPLASTIN TIME PARTIAL (test code = PTT) 26.2 seconds 25.0-36. 5 N IS PATIENT ON ANTICOAGULANTS? NBASIC METABOLIC KRPLL7131-18-03 06:41:00* Test Item Value Reference Range Interpretation [...] CA) 9.7 mg/dL 8.5-10.1 N HEPATIC FUNCTION QPLUI7983-15-50 06:41:00* Test Item Value Reference Range Interpretation [...] reference range due to change in reagent. INPIMJ3848-03-76 06:41:00* Test Item Value Reference Range Interpretation Comments LIPASE (test code = LIP) 16 U/L 73.0-393.0 L MAEQBXBJ-P6656-82-03 06:41:00* Test Item Value Reference Range Interpretation Comments TROPONIN-I (test code = TROPI) <0.015 ng/mL 0-0.045 N BASIC METABOLIC BIQCX3684-30-46 06:27:00* Test Item Value Reference Range Interpretation [...] code = CA) mg/dL 8.5-10.1 HEPATIC FUNCTION FGWBW1985-11-63 06:27:00* Test Item Value Reference Range Interpretation [...] TOTAL (test code = ALKP) IUnit/L 45-117 PBBLJR1395-11-11 06:27:00* Test Item Value Reference Range Interpretation Comments LIPASE (test code = LIP) U/L 73.0-393.0 JHMQGTZH-R9388-55-03 06:27:00* Test Item Value Reference Range Interpretation Comments TROPONIN-I (test code = TROPI) ng/mL 0-0.045 POC LACTIC GFMM0508-39-75 06:23:00* Test Item Value Reference Range Interpretation Comments POC LACTIC ACID (test code = POCLAC) 1.46 MMOL/L 0.4-2.2 N CBC W/O IYSE8889-00-36 06:22:00* Test Item Value Reference Range Interpretation [...] = MPV) 11.6 fL 6.7-11.0 H GASTRIC JFTPTHJL6409-11-67 00:53:00 [facility] [address] [place] [address] Patient Name: BREE LINDSAY MR #: [id number] : 1975 Age/Sex: 42/M [id number] #: [id number] [facility] Physician: Ordered by: TAVIA GARCIA MD Report #: [id number] Location: [place] Room/Bed: Procedure: N M/GASTRIC EMPTYING Exam Date: Exam Time: REPORT STATUS: Signed Solid-phase gastric emptying study Reason for examination: GERD with esophagitis; gastritis The protocol used for this study is based on the Consensus Recommendations fo r Gastric Scintigraphy by the [place] and the [...] on 09/21/1856 COPY TO: TAVIA GARCIA MD Huqvdj1067-96-96 15:34:00* Test Item Value Reference Range Interpretation Comments Lipase (test code = 3040-3) < 4 8-78 L [facility]2019-[facility]-14 15:34:00* Test Item Value Reference Range Interpretation Comments Lipase (test code = 3040-3) < 4 8-78 L [facility] CenterGLUBED2019-05-11 11:39:00* Test Item Value Reference Range Interpretation Comments GLUBED (test code = GLUBED) 102 mg/dL 74-106 N Performed by certified raisin separator operator at [facility] BASIC METABOLIC FAXGZ4646-50-36 11:27:00* Test Item Value Reference Range Interpretation [...] CA) 8.6 mg/dL 8.5-10.1 N CBC W/AUTO [id number] 11:02:00* Test Item Value Reference Range Interpretation [...] DIFF REQUIRED (test code = MDIFF) NO [id number] 07:41:00* Test Item Value Reference Range Interpretation Comments GLUBED (test code = GLUBED) 111 mg/dL 74-106 H Performed by certified raisin separator operator at [facility] LXXVNS8387-83-21 21:20:00* Test Item Value Reference Range Interpretation Comments GLUBED (test code = GLUBED) 201 mg/dL 74-106 H Performed by certified raisin separator operator at [facility] HDHKLC6899-24-02 16:36:00* Test Item Value Reference Range Interpretation Comments GLUBED (test code = GLUBED) 214 mg/dL 74-106 H Performed by certified raisin separator operator at [facility] IWMDXC8888-69-53 12:00:00* Test Item Value Reference Range Interpretation Comments GLUBED (test code = GLUBED) 266 mg/dL 74-106 H Performed by certified raisin separator operator at [facility] KAZPZC9866-14-46 07:31:00* Test Item Value Reference Range Interpretation Comments GLUBED (test code = GLUBED) 252 mg/dL 74-106 H Performed by certified raisin separator operator at [facility] GHMLPU5990-19-07 21:20:00* Test Item Value Reference Range Interpretation Comments GLUBED (test code = GLUBED) 109 mg/dL 74-106 H Performed by certified raisin separator operator at [facility] GFLGIF5037-05-51 16:47:00* Test Item Value Reference Range Interpretation Comments GLUBED (test code = GLUBED) 328 mg/dL 74-106 H Performed by certified raisin separator operator at [facility] HFIZMC5566-29-28 11:32:00* Test Item Value Reference Range Interpretation Comments GLUBED (test code = GLUBED) 145 mg/dL 74-106 H Performed by certified raisin separator operator at [facility] [id number] 07:54:00* Test Item Value Reference Range Interpretation Comments GLUBED (test code = GLUBED) 347 mg/dL 74-106 H Performed by certified raisin separator operator at [facility] CBC W/AUTO [id number] 07:28:00* Test Item Value Reference Range Interpretation [...] (test code = MDIFF) NO BASIC METABOLIC [id number] 07:10:00* Test Item Value Reference Range Interpretation [...] CA) 8.8 mg/dL 8.5-10.1 N BASIC METABOLIC [id number] 06:59:00* Test Item Value Reference Range Interpretation [...] CALCIUM (test code = CA) mg/dL 8.5-10.1 EIJBTQ5583-75-06 22:44:00* Test Item Value Reference Range Interpretation Comments GLUBED (test code = GLUBED) 364 mg/dL 74-106 H Performed by certified raisin separator operator at [facility] BASIC METABOLIC [id number] 17:43:00* Test Item Value Reference Range Interpretation [...] CA) 9.9 mg/dL 8.5-10.1 N HEPATIC FUNCTION [id number] 17:43:00* Test Item Value Reference Range Interpretation [...] reference range due to change in reagent. [id number] 17:43:00* Test Item Value Reference Range Interpretation Comments LIPASE (test code = LIP) 18 U/L 73.0-393.0 L BASIC METABOLIC [id number] 17:22:00* Test Item Value Reference Range Interpretation [...] code = CA) mg/dL 8.5-10.1 HEPATIC FUNCTION [id number] 17:22:00* Test Item Value Reference Range Interpretation [...] TOTAL (test code = ALKP) IUnit/L 45-117 [id number] 17:22:00* Test Item Value Reference Range Interpretation Comments LIPASE (test code = LIP) U/L 73.0-393.0 URINALYSIS PPOUQJWR4925-65-86 17:00:00* Test Item Value Reference Range Interpretation [...] FEW #/LPF FEW Urine Source? Clean CatchURINALYSIS RKRZEPUP6274-36-00 16:55:00* Test Item Value Reference Range Interpretation [...] HPF NONE Urine Source? Clean CatchCBC W/O [id number] 16:40:00* Test Item Value Reference Range Interpretation [...] MPV) 10.7 fL 6.7-11.0 N CBC W/O [id number] 16:37:00* Test Item Value Reference Range Interpretation [...] (test code = MPV) fL 6.7-11.0 Bedside Wrdwlrz7753-73-50 08:08:00* Test Item Value Reference Range Interpretation Comments Bedside Glucose (test code = 94095-2) 217 70-120 H Meter ID: [id number] Glucose 2018-07-07 08:08:00* Test Item Value Reference Range Interpretation Comments Bedside Glucose (test code = 54467-9) 217 70-120 H Meter ID: [id number] Glucose 2018-07-07 08:08:00* Test Item Value Reference Range Interpretation Comments Bedside Glucose (test code = 87732-8) 217 70-120 H Meter ID: [id number] Level 2018-07-07 06:31:00* Test Item Value Reference Range Interpretation Comments Magnesium Level (test code = 19803-7) 1.4 1.3-2.1 [facility]2019-04-10 06:31:00* Test Item Value Reference Range Interpretation Comments Magnesium Level (test code = 78223-7) 1.4 1.3-2.1 [facility]2019-04-10 06:31:00* Test Item Value Reference Range Interpretation Comments Magnesium Level (test code = 14610-1) 1.4 1.3-2.1 [facility]2019-04-10 06:31:00* Test Item Value Reference Range Interpretation Comments Magnesium Level (test code = 17882-7) 1.4 1.3-2.1 [facility]2019-04-10 06:27:00* Test Item Value Reference Range Interpretation Comments Sodium Level (test code = 2951-2) 137 136-145 [facility] CenterPotassium Qdjxg4057-75-78 06:27:00* Test Item Value Reference Range Interpretation Comments Potassium Level (test code = 2823-3) 2.7 3.5-5.1 LL Results repeated and called to [place] at 0624 on 07/07/18 by Lisa henry Read back and verified.[facility] CenterChloride Level 2018-07-07 06:27:00* Test Item Value Reference Range Interpretation Comments Chloride Level (test code = 2075-0) 96 98-107 L [facility] CenterCarbon Dioxide Ucdgy8402-43-69 06:27:00* Test Item Value Reference Range Interpretation Comments Carbon Dioxide Level (test code = 2028-9) 32 22-29 H [facility] CenterAnion Nwq9743-70-87 06:27:00* Test Item Value Reference Range Interpretation Comments Anion Gap (test code = 79921-8) 11.7 8-16 [facility] CenterBlood Urea Hbeksuds5075-35-48 06:27:00* Test Item Value Reference Range Interpretation Comments Blood Urea Nitrogen (test code = 3094-0) 6 7-26 L [facility] CenterCreatinine2019-04-10 06:27:00* Test Item Value Reference Range Interpretation Comments Creatinine (test code = 2160-0) 0.85 0.72-1.25 [facility] CenterBUN/Creatinine Sjveb1827-00-94 06:27:00* Test Item Value Reference Range Interpretation Comments BUN/Creatinine Ratio (test code = 3097-3) 7 6-25 [facility] CenterEstimat Glomerular Filtration Rate 2018-07-07 06:27:00* Test Item Value Reference Range Interpretation Comments Estimat Glomerular Filtration Rate (test code = 898898345) > 60 >60 Ranges were taken from the National Kidney Disease Education Program and the [facility] literature.Reference ranges:60 or greater: Nvgspt04-79 ( for 3 consecutive months): Chronic kidney disease 15 or less: Kidney failureC[facility] Park [facility] Medical CenterGlucose Vhjyk9741-61-60 06:27:00* Test Item Value Reference Range Interpretation Comments Glucose Level (test code = NSF5824) 136 74-118 H [facility] CenterCalcium Ymnft0283-13-61 06:27:00* Test Item Value Reference Range Interpretation Comments Calcium Level (test code = 91479-9) 8.4 8.4-10.2 [facility] CenterTotal Idplhsrxs7967-87-80 06:27:00* Test Item Value Reference Range Interpretation Comments Total Bilirubin (test code = 1975-2) 0.5 0.2-1.2 [facility] CenterAspartate Amino Transf (AST/SGOT) 2018-07-07 06:27:00* Test Item Value Reference Range Interpretation Comments Aspartate Amino Transf (AST/SGOT) (test code = Aspartate Amino Transf (AST/SGOT)) 12 5-34 [facility] CenterAlanine Aminotransferase (ALT/SGPT) 2018-07-07 06:27:00* Test Item Value Reference Range Interpretation Comments Alanine Aminotransferase (ALT/SGPT) (test code = 1742-6) < 6 0-55 [facility] CenterTotal Eeslreg6521-92-12 06:27:00* Test Item Value Reference Range Interpretation Comments Total Protein (test code = 2885-2) 5.8 6.5-8.1 L [facility] CenterAlbumin2019-04-10 06:27:00* Test Item Value Reference Range Interpretation Comments Albumin (test code = 1751-7) 3.1 3.5-5.0 L [facility] CenterGlobulin2019-04-10 06:27:00* Test Item Value Reference Range Interpretation Comments Globulin (test code = 81939-0) 2.7 2.3-3.5 [facility] CenterAlbumin/Globulin Wvaok0882-94-10 06:27:00 * Test Item Value Reference Range Interpretation Comments Albumin/Globulin Ratio (test code = 1759-0) 1.1 0.8-2.0 [facility] CenterAlkaline Dkrxwqxgwhr4022-64-00 06:27:00* Test Item Value Reference Range Interpretation Comments Alkaline Phosphatase (test code = 6768-6) 68 40-150 [facility] Centerodium Ufvti3211-62-97 06:27:00* Test Item Value Reference Range Interpretation Comments Sodium Level (test code = 2951-2) 137 136-145 [facility] CenterPotassium Ajpzt8947-62-87 06:27:00* Test Item Value Reference Range Interpretation Comments Potassium Level (test code = 2823-3) 2.7 3.5-5.1 LL Results repeated and called to [place] at 0624 on 07/07/18 by Lisa henry Read back and verified.[facility] CenterChloride Level 2018-07-07 06:27:00* Test Item Value Reference Range Interpretation Comments Chloride Level (test code = 2075-0) 96 98-107 L [facility] CenterCarbon Dioxide Tpsaq7067-35-43 06:27:00* Test Item Value Reference Range Interpretation Comments Carbon Dioxide Level (test code = 2028-9) 32 22-29 H [facility] CenterAnion Rei6567-42-18 06:27:00* Test Item Value Reference Range Interpretation Comments Anion Gap (test code = 30706-6) 11.7 8-16 [facility] CenterBlood Urea Gkbgtrgx2097-79-66 06:27:00* Test Item Value Reference Range Interpretation Comments Blood Urea Nitrogen (test code = 3094-0) 6 7-26 L [facility] CenterCreatinine2019-04-10 06:27:00* Test Item Value Reference Range Interpretation Comments Creatinine (test code = 2160-0) 0.85 0.72-1.25 [facility] CenterBUN/Creatinine Dslvl0772-42-05 06:27:00* Test Item Value Reference Range Interpretation Comments BUN/Creatinine Ratio (test code = 3097-3) 7 6-25 [facility] CenterEstimat Glomerular Filtration Rate 2018-07-07 06:27:00* Test Item Value Reference Range Interpretation Comments Estimat Glomerular Filtration Rate (test code = 731972680) > 60 >60 Ranges were taken from the National Kidney Disease Education Program and the [place] [facility] [employer] literature.Reference ranges:60 or greater: Fzehjl25-39 ( for 3 consecutive months): Chronic kidney disease 15 or less: Kidney failureCedar Park Regional Medical CenterGlucose Vtufw5604-47-80 06:27:00* Test Item Value Reference Range Interpretation Comments Glucose Level (test code = UUB2900) 136 74-118 H [facility] CenterCalcium Wyjkn1224-04-36 06:27:00* Test Item Value Reference Range Interpretation Comments Calcium Level (test code = 44570-5) 8.4 8.4-10.2 [facility] CenterTotal Jyjfcfhsa2944-76-55 06:27:00* Test Item Value Reference Range Interpretation Comments Total Bilirubin (test code = 1975-2) 0.5 0.2-1.2 [facility] CenterAspartate Amino Transf (AST/SGOT) 2018-07-07 06:27:00* Test Item Value Reference Range Interpretation Comments Aspartate Amino Transf (AST/SGOT) (test code = Aspartate Amino Transf (AST/SGOT)) 12 5-34 [facility] CenterAlanine Aminotransferase (ALT/SGPT) 2018-07-07 06:27:00* Test Item Value Reference Range Interpretation Comments Alanine Aminotransferase (ALT/SGPT) (test code = 1742-6) < 6 0-55 [facility] CenterTotal Ymhmqtb0192-27-25 06:27:00* Test Item Value Reference Range Interpretation Comments Total Protein (test code = 2885-2) 5.8 6.5-8.1 L [facility] CenterAlbumin2019-04-10 06:27:00* Test Item Value Reference Range Interpretation Comments Albumin (test code = 1751-7) 3.1 3.5-5.0 L [facility] CenterGlobulin2019-04-10 06:27:00* Test Item Value Reference Range Interpretation Comments Globulin (test code = 40021-7) 2.7 2.3-3.5 [facility] CenterAlbumin/Globulin Pcqxy2398-94-24 06:27:00 * Test Item Value Reference Range Interpretation Comments Albumin/Globulin Ratio (test code = 1759-0) 1.1 0.8-2.0 [facility] CenterAlkaline Zhugbvkjmdh1247-45-24 06:27:00* Test Item Value Reference Range Interpretation Comments Alkaline Phosphatase (test code = 6768-6) 68 40-150 [facility] Centerodium Eeywo8329-29-78 06:27:00* Test Item Value Reference Range Interpretation Comments Sodium Level (test code = 2951-2) 137 136-145 [facility] CenterPotassium Zsyfd5495-11-17 06:27:00* Test Item Value Reference Range Interpretation Comments Potassium Level (test code = 2823-3) 2.7 3.5-5.1 LL Results repeated and called to [place] at 0624 on 07/07/18 by Lisa henry Read back and verified.[facility] CenterChloride Level 2018-07-07 06:27:00* Test Item Value Reference Range Interpretation Comments Chloride Level (test code = 2075-0) 96 98-107 L [facility] CenterCarbon Dioxide Tafab0973-42-15 06:27:00* Test Item Value Reference Range Interpretation Comments Carbon Dioxide Level (test code = 2028-9) 32 22-29 H [facility] CenterAnion Gzk4182-43-81 06:27:00* Test Item Value Reference Range Interpretation Comments Anion Gap (test code = 88709-8) 11.7 8-16 [facility] CenterBlood Urea Jzefazie8039-59-52 06:27:00* Test Item Value Reference Range Interpretation Comments Blood Urea Nitrogen (test code = 3094-0) 6 7-26 L [facility] CenterCreatinine2019-04-10 06:27:00* Test Item Value Reference Range Interpretation Comments Creatinine (test code = 2160-0) 0.85 0.72-1.25 [facility] CenterBUN/Creatinine Evvwb5584-38-75 06:27:00* Test Item Value Reference Range Interpretation Comments BUN/Creatinine Ratio (test code = 3097-3) 7 6-25 [facility] CenterEstimat Glomerular Filtration Rate 2018-07-07 06:27:00* Test Item Value Reference Range Interpretation Comments Estimat Glomerular Filtration Rate (test code = 028515001) > 60 >60 Ranges were taken from the National Kidney Disease Education Program and the [facility] literature.Reference ranges:60 or greater: Altmho01-84 ( for 3 consecutive months): Chronic kidney disease 15 or less: Kidney failureCedar Park Regional Medical CenterGlucose Rkojl4301-62-82 06:27:00* Test Item Value Reference Range Interpretation Comments Glucose Level (test code = UNA5664) 136 74-118 H [facility] CenterCalcium Ltjwf9195-91-65 06:27:00* Test Item Value Reference Range Interpretation Comments Calcium Level (test code = 87460-6) 8.4 8.4-10.2 [facility] CenterTotal Htlbqwxlx7410-60-44 06:27:00* Test Item Value Reference Range Interpretation Comments Total Bilirubin (test code = 1975-2) 0.5 0.2-1.2 [facility] CenterAspartate Amino Transf (AST/SGOT) 2018-07-07 06:27:00* Test Item Value Reference Range Interpretation Comments Aspartate Amino Transf (AST/SGOT) (test code = Aspartate Amino Transf (AST/SGOT)) 12 5-34 [facility] CenterAlanine Aminotransferase (ALT/SGPT) 2018-07-07 06:27:00* Test Item Value Reference Range Interpretation Comments Alanine Aminotransferase (ALT/SGPT) (test code = 1742-6) < 6 0-55 [facility] CenterTotal Rwzjmel0826-87-91 06:27:00* Test Item Value Reference Range Interpretation Comments Total Protein (test code = 2885-2) 5.8 6.5-8.1 L [facility] CenterAlbumin2019-04-10 06:27:00* Test Item Value Reference Range Interpretation Comments Albumin (test code = 1751-7) 3.1 3.5-5.0 L [facility] CenterGlobulin2019-04-10 06:27:00* Test Item Value Reference Range Interpretation Comments Globulin (test code = 97663-0) 2.7 2.3-3.5 [facility] CenterAlbumin/Globulin Hauau7910-86-68 06:27:00 * Test Item Value Reference Range Interpretation Comments Albumin/Globulin Ratio (test code = 1759-0) 1.1 0.8-2.0 [facility] CenterAlkaline Sesjvcdlpwt7429-55-46 06:27:00* Test Item Value Reference Range Interpretation Comments Alkaline Phosphatase (test code = 6768-6) 68 40-150 [facility] CenterTotal Gnvpphxjn3158-45-54 06:27:00* Test Item Value Reference Range Interpretation Comments Total Bilirubin (test code = 1975-2) 0.5 0.2-1.2 [facility] CenterAspartate Amino Transf (AST/SGOT) 2018-07-07 06:27:00* Test Item Value Reference Range Interpretation Comments Aspartate Amino Transf (AST/SGOT) (test code = Aspartate Amino Transf (AST/SGOT)) 12 5-34 [facility] CenterAlanine Aminotransferase (ALT/SGPT) 2018-07-07 06:27:00* Test Item Value Reference Range Interpretation Comments Alanine Aminotransferase (ALT/SGPT) (test code = 1742-6) < 6 0-55 [facility] Fvmbkjx2122-61-27 06:27:00* Test Item Value Reference Range Interpretation Comments Total Protein (test code = 2885-2) 5.8 6.5-8.1 L [facility] CenterAlbumin2019-04-10 06:27:00* Test Item Value Reference Range Interpretation Comments Albumin (test code = 1751-7) 3.1 3.5-5.0 L [facility] CenterGlobulin2019-04-10 06:27:00* Test Item Value Reference Range Interpretation Comments Globulin (test code = 90838-6) 2.7 2.3-3.5 [facility] CenterAlbumin/Globulin Tosev3253-34-93 06:27:00 * Test Item Value Reference Range Interpretation Comments Albumin/Globulin Ratio (test code = 1759-0) 1.1 0.8-2.0 [facility] CenterAlkaline Fjpuhtbkdza6440-79-32 06:27:00* Test Item Value Reference Range Interpretation Comments Alkaline Phosphatase (test code = 6768-6) 68 40-150 [facility] CenterTotal Aupbkuzkz4386-17-56 06:27:00* Test Item Value Reference Range Interpretation Comments Total Bilirubin (test code = 1975-2) 0.5 0.2-1.2 [facility] CenterAspartate Amino Transf (AST/SGOT) 2018-07-07 06:27:00* Test Item Value Reference Range Interpretation Comments Aspartate Amino Transf (AST/SGOT) (test code = Aspartate Amino Transf (AST/SGOT)) 12 5-34 [facility] CenterAlanine Aminotransferase (ALT/SGPT) 2018-07-07 06:27:00* Test Item Value Reference Range Interpretation Comments Alanine Aminotransferase (ALT/SGPT) (test code = 1742-6) < 6 0-55 [facility] Ljrfwgn4891-96-96 06:27:00* Test Item Value Reference Range Interpretation Comments Total Protein (test code = 2885-2) 5.8 6.5-8.1 L [facility] CenterAlbumin2019-04-10 06:27:00* Test Item Value Reference Range Interpretation Comments Albumin (test code = 1751-7) 3.1 3.5-5.0 L [facility] CenterGlobulin2019-04-10 06:27:00* Test Item Value Reference Range Interpretation Comments Globulin (test code = 95158-1) 2.7 2.3-3.5 [facility] CenterAlbumin/Globulin Bjszw8750-54-52 06:27:00 * Test Item Value Reference Range Interpretation Comments Albumin/Globulin Ratio (test code = 1759-0) 1.1 0.8-2.0 [facility] CenterAlkaline Owfamnaisgf6912-56-20 06:27:00* Test Item Value Reference Range Interpretation Comments Alkaline Phosphatase (test code = 6768-6) 68 40-150 [facility] CenterTotal Wopaqwxio6582-14-10 06:27:00* Test Item Value Reference Range Interpretation Comments Total Bilirubin (test code = 1975-2) 0.5 0.2-1.2 [facility] CenterAspartate Amino Transf (AST/SGOT) 2018-07-07 06:27:00* Test Item Value Reference Range Interpretation Comments Aspartate Amino Transf (AST/SGOT) (test code = Aspartate Amino Transf (AST/SGOT)) 12 5-34 [facility] CenterAlanine Aminotransferase (ALT/SGPT) 2018-07-07 06:27:00* Test Item Value Reference Range Interpretation Comments Alanine Aminotransferase (ALT/SGPT) (test code = 1742-6) < 6 0-55 [facility] CenterTotal Vamddbf4897-10-39 06:27:00* Test Item Value Reference Range Interpretation Comments Total Protein (test code = 2885-2) 5.8 6.5-8.1 L [facility] CenterAlbumin2019-04-10 06:27:00* Test Item Value Reference Range Interpretation Comments Albumin (test code = 1751-7) 3.1 3.5-5.0 L [facility] CenterGlobulin2019-04-10 06:27:00* Test Item Value Reference Range Interpretation Comments Globulin (test code = 69761-3) 2.7 2.3-3.5 [facility] CenterAlbumin/Globulin Cpopx1354-58-16 06:27:00 * Test Item Value Reference Range Interpretation Comments Albumin/Globulin Ratio (test code = 1759-0) 1.1 0.8-2.0 [facility] CenterAlkaline Nazvkoerkdx9417-11-50 06:27:00* Test Item Value Reference Range Interpretation Comments Alkaline Phosphatase (test code = 6768-6) 68 40-150 [facility] CenterWhite Blood Wkpbp6940-33-21 05:57:00* Test Item Value Reference Range Interpretation Comments White Blood Count (test code = 6690-2) 7.71 4.8-10.8 [facility] CenterRed Blood Iebfy0277-77-15 05:57:00* Test Item Value Reference Range Interpretation Comments Red Blood Count (test code = 789-8) 3.90 4.3-5.7 L [facility] CenterHemoglobin2019-04-10 05:57:00* Test Item Value Reference Range Interpretation Comments Hemoglobin (test code = 83074-5) 11.2 14.0-18.0 L [facility] CenterHematocrit2019-04-10 05:57:00* Test Item Value Reference Range Interpretation Comments Hematocrit (test code = 4544-3) 33.8 38.2-49.6 L [facility] CenterMean Corpuscular Quiwhk9280-20-38 05:57:00* Test Item Value Reference Range Interpretation Comments Mean Corpuscular Volume (test code = 787-2) 86.7 81-99 [facility] CenterMean Corpuscular Ptofqjfrst5151-81-62 05:57:00* Test Item Value Reference Range Interpretation Comments Mean Corpuscular Hemoglobin (test code = 785-6) 28.7 28-32 [facility] CenterMean Corpuscular Hemoglobin Concent 2018-07-07 05:57:00* Test Item Value Reference Range Interpretation Comments Mean Corpuscular Hemoglobin Concent (test code = 786-4) 33.1 31-35 [facility] CenterRed Cell Distribution Rpxqh3387-72-22 05:57:00* Test Item Value Reference Range Interpretation Comments Red Cell Distribution Width (test code = 18619-5) 13.2 11.7 -14.4 [facility] CenterPlatelet Weuni5695-72-52 05:57:00* Test Item Value Reference Range Interpretation Comments Platelet Count (test code = 777-3) 182 140-360 [facility] CenterNeutrophils (%) (Auto)2018-07-07 05:57:00 * Test Item Value Reference Range Interpretation Comments Neutrophils (%) (Auto) (test code = 89259-4) 54.0 38.7-80.0 [facility] CenterLymphocytes (%) (Auto)2018-07-07 05:57:00 * Test Item Value Reference Range Interpretation Comments Lymphocytes (%) (Auto) (test code = 736-9) 20.6 18.0-39.1 [facility] CenterMonocytes (%) (Auto)2018-07-07 05:57:00* Test Item Value Reference Range Interpretation Comments Monocytes (%) (Auto) (test code = 5905-5) 19.5 4.4-11.3 H [facility] CenterEosinophils (%) (Auto)2018-07-07 05:57:00 * Test Item Value Reference Range Interpretation Comments Eosinophils (%) (Auto) (test code = 713-8) 5.3 0.0-6.0 [facility] CenterBasophils (%) (Auto)2018-07-07 05:57:00* Test Item Value Reference Range Interpretation Comments Basophils (%) (Auto) (test code = 706-2) 0.5 0.0-1.0 [facility] CenterIM GRANULOCYTES %2018-07-07 05:57:00* Test Item Value Reference Range Interpretation Comments IM GRANULOCYTES % (test code = IM GRANULOCYTES %) 0.1 0.0- 1.0 [facility] CenterNeutrophils # (Auto)2018-07-07 05:57:00* Test Item Value Reference Range Interpretation Comments Neutrophils # (Auto) (test code = 751-8) 4.2 2.1-6.9 [facility] CenterLymphocytes # (Auto)2018-07-07 05:57:00* Test Item Value Reference Range Interpretation Comments Lymphocytes # (Auto) (test code = 91841-5) 1.6 1.0-3.2 [facility] CenterMonocytes # (Auto)2018-07-07 05:57:00* Test Item Value Reference Range Interpretation Comments Monocytes # (Auto) (test code = 742-7) 1.5 0.2-0.8 H [facility] CenterEosinophils # (Auto)2018-07-07 05:57:00* Test Item Value Reference Range Interpretation Comments Eosinophils # (Auto) (test code = 711-2) 0.4 0.0-0.4 [facility] CenterBasophils # (Auto)2018-07-07 05:57:00* Test Item Value Reference Range Interpretation Comments Basophils # (Auto) (test code = 704-7) 0.0 0.0-0.1 [facility] CenterAbsolute Immature Granulocyte (auto 2018-07-07 05:57:00* Test Item Value Reference Range Interpretation Comments Absolute Immature Granulocyte (auto (zeenat t code = Absolute Immature Granulocyte (auto) 0.01 0-0.1 [facility] CenterWhite Blood Wfbyy6751-90-62 05:57:00* Test Item Value Reference Range Interpretation Comments White Blood Count (test code = 6690-2) 7.71 4.8-10.8 [facility] CenterRed Blood Qbaiq5163-54-04 05:57:00* Test Item Value Reference Range Interpretation Comments Red Blood Count (test code = 789-8) 3.90 4.3-5.7 L [facility] CenterHemoglobin2019-04-10 05:57:00* Test Item Value Reference Range Interpretation Comments Hemoglobin (test code = 09543-6) 11.2 14.0-18.0 L [facility] CenterHematocrit2019-04-10 05:57:00* Test Item Value Reference Range Interpretation Comments Hematocrit (test code = 4544-3) 33.8 38.2-49.6 L [facility] CenterMean Corpuscular Vvbixl4322-81-92 05:57:00* Test Item Value Reference Range Interpretation Comments Mean Corpuscular Volume (test code = 787-2) 86.7 81-99 [facility] CenterMean Corpuscular Igfzfjtvai3498-69-57 05:57:00* Test Item Value Reference Range Interpretation Comments Mean Corpuscular Hemoglobin (test code = 785-6) 28.7 28-32 [facility] CenterMean Corpuscular Hemoglobin Concent 2018-07-07 05:57:00* Test Item Value Reference Range Interpretation Comments Mean Corpuscular Hemoglobin Concent (test code = 786-4) 33.1 31-35 [facility] CenterRed Cell Distribution Chuvu4859-02-78 05:57:00* Test Item Value Reference Range Interpretation Comments Red Cell Distribution Width (test code = 46021-8) 13.2 11.7 -14.4 [facility] CenterPlatelet Syisk3064-71-37 05:57:00* Test Item Value Reference Range Interpretation Comments Platelet Count (test code = 777-3) 182 140-360 [facility] CenterNeutrophils (%) (Auto)2018-07-07 05:57:00 * Test Item Value Reference Range Interpretation Comments Neutrophils (%) (Auto) (test code = 32009-2) 54.0 38.7-80.0 [facility] CenterLymphocytes (%) (Auto)2018-07-07 05:57:00 * Test Item Value Reference Range Interpretation Comments Lymphocytes (%) (Auto) (test code = 736-9) 20.6 18.0-39.1 [facility] CenterMonocytes (%) (Auto)2018-07-07 05:57:00* Test Item Value Reference Range Interpretation Comments Monocytes (%) (Auto) (test code = 5905-5) 19.5 4.4-11.3 H [facility] CenterEosinophils (%) (Auto)2018-07-07 05:57:00 * Test Item Value Reference Range Interpretation Comments Eosinophils (%) (Auto) (test code = 713-8) 5.3 0.0-6.0 [facility] CenterBasophils (%) (Auto)2018-07-07 05:57:00* Test Item Value Reference Range Interpretation Comments Basophils (%) (Auto) (test code = 706-2) 0.5 0.0-1.0 [facility] CenterIM GRANULOCYTES %2018-07-07 05:57:00* Test Item Value Reference Range Interpretation Comments IM GRANULOCYTES % (test code = IM GRANULOCYTES %) 0.1 0.0- 1.0 [facility] CenterNeutrophils # (Auto)2018-07-07 05:57:00* Test Item Value Reference Range Interpretation Comments Neutrophils # (Auto) (test code = 751-8) 4.2 2.1-6.9 [facility] CenterLymphocytes # (Auto)2018-07-07 05:57:00* Test Item Value Reference Range Interpretation Comments Lymphocytes # (Auto) (test code = 70415-9) 1.6 1.0-3.2 [facility] CenterMonocytes # (Auto)2018-07-07 05:57:00* Test Item Value Reference Range Interpretation Comments Monocytes # (Auto) (test code = 742-7) 1.5 0.2-0.8 H [facility] CenterEosinophils # (Auto)2018-07-07 05:57:00* Test Item Value Reference Range Interpretation Comments Eosinophils # (Auto) (test code = 711-2) 0.4 0.0-0.4 [facility] CenterBasophils # (Auto)2018-07-07 05:57:00* Test Item Value Reference Range Interpretation Comments Basophils # (Auto) (test code = 704-7) 0.0 0.0-0.1 [facility] CenterAbsolute Immature Granulocyte (auto 2018-07-07 05:57:00* Test Item Value Reference Range Interpretation Comments Absolute Immature Granulocyte (auto (zeenat t code = Absolute Immature Granulocyte (auto) 0.01 0-0.1 [facility] CenterWhite Blood Wencc2202-91-11 05:57:00* Test Item Value Reference Range Interpretation Comments White Blood Count (test code = 6690-2) 7.71 4.8-10.8 [facility] CenterRed Blood Gxklg1739-72-28 05:57:00* Test Item Value Reference Range Interpretation Comments Red Blood Count (test code = 789-8) 3.90 4.3-5.7 L [facility] CenterHemoglobin2019-04-10 05:57:00* Test Item Value Reference Range Interpretation Comments Hemoglobin (test code = 53618-4) 11.2 14.0-18.0 L [facility] CenterHematocrit2019-04-10 05:57:00* Test Item Value Reference Range Interpretation Comments Hematocrit (test code = 4544-3) 33.8 38.2-49.6 L [facility] CenterMean Corpuscular Ogiszp0750-27-29 05:57:00* Test Item Value Reference Range Interpretation Comments Mean Corpuscular Volume (test code = 787-2) 86.7 81-99 [facility] CenterMean Corpuscular Mmorupmklf1430-47-88 05:57:00* Test Item Value Reference Range Interpretation Comments Mean Corpuscular Hemoglobin (test code = 785-6) 28.7 28-32 [facility] CenterMean Corpuscular Hemoglobin Concent 2018-07-07 05:57:00* Test Item Value Reference Range Interpretation Comments Mean Corpuscular Hemoglobin Concent (test code = 786-4) 33.1 31-35 [facility] CenterRed Cell Distribution Axmbs0665-01-40 05:57:00* Test Item Value Reference Range Interpretation Comments Red Cell Distribution Width (test code = 86863-6) 13.2 11.7 -14.4 [facility] CenterPlatelet Wfdum8058-66-18 05:57:00* Test Item Value Reference Range Interpretation Comments Platelet Count (test code = 777-3) 182 140-360 [facility] CenterNeutrophils (%) (Auto)2018-07-07 05:57:00 * Test Item Value Reference Range Interpretation Comments Neutrophils (%) (Auto) (test code = 78437-8) 54.0 38.7-80.0 [facility] CenterLymphocytes (%) (Auto)2018-07-07 05:57:00 * Test Item Value Reference Range Interpretation Comments Lymphocytes (%) (Auto) (test code = 736-9) 20.6 18.0-39.1 [facility] CenterMonocytes (%) (Auto)2018-07-07 05:57:00* Test Item Value Reference Range Interpretation Comments Monocytes (%) (Auto) (test code = 5905-5) 19.5 4.4-11.3 H [facility] CenterEosinophils (%) (Auto)2018-07-07 05:57:00 * Test Item Value Reference Range Interpretation Comments Eosinophils (%) (Auto) (test code = 713-8) 5.3 0.0-6.0 [facility] CenterBasophils (%) (Auto)2018-07-07 05:57:00* Test Item Value Reference Range Interpretation Comments Basophils (%) (Auto) (test code = 706-2) 0.5 0.0-1.0 [facility] CenterIM GRANULOCYTES %2018-07-07 05:57:00* Test Item Value Reference Range Interpretation Comments IM GRANULOCYTES % (test code = IM GRANULOCYTES %) 0.1 0.0- 1.0 [facility] CenterNeutrophils # (Auto)2018-07-07 05:57:00* Test Item Value Reference Range Interpretation Comments Neutrophils # (Auto) (test code = 751-8) 4.2 2.1-6.9 [facility] CenterLymphocytes # (Auto)2018-07-07 05:57:00* Test Item Value Reference Range Interpretation Comments Lymphocytes # (Auto) (test code = 06970-0) 1.6 1.0-3.2 [facility] CenterMonocytes # (Auto)2018-07-07 05:57:00* Test Item Value Reference Range Interpretation Comments Monocytes # (Auto) (test code = 742-7) 1.5 0.2-0.8 H [facility] CenterEosinophils # (Auto)2018-07-07 05:57:00* Test Item Value Reference Range Interpretation Comments Eosinophils # (Auto) (test code = 711-2) 0.4 0.0-0.4 [facility] CenterBasophils # (Auto)2018-07-07 05:57:00* Test Item Value Reference Range Interpretation Comments Basophils # (Auto) (test code = 704-7) 0.0 0.0-0.1 [facility] CenterAbsolute Immature Granulocyte (auto 2018-07-07 05:57:00* Test Item Value Reference Range Interpretation Comments Absolute Immature Granulocyte (auto (zeenat t code = Absolute Immature Granulocyte (auto) 0.01 0-0.1 [facility] CenterAmylase Lxork2523-91-92 04:08:00* Test Item Value Reference Range Interpretation Comments Amylase Level (test code = 1798-8) 48 25-125 [facility] CenterLipase2019-04-05 04:08:00* Test Item Value Reference Range Interpretation Comments Lipase (test code = 3040-3) < 4 8-78 L [facility] CenterAmylase Aimki4607-81-91 04:08:00* Test Item Value Reference Range Interpretation Comments Amylase Level (test code = 1798-8) 48 25-125 [facility] CenterAmylase Wjmyl9585-20-98 04:08:00* Test Item Value Reference Range Interpretation Comments Amylase Level (test code = 1798-8) 48 25-125 [facility] CenterAmylase Awlfl2614-80-51 04:08:00* Test Item Value Reference Range Interpretation Comments Amylase Level (test code = 1798-8) 48 25-125 [facility] CenterAmylase Atwrw0863-02-26 04:08:00* Test Item Value Reference Range Interpretation Comments Amylase Level (test code = 1798-8) 48 25-125 [facility] CenterAmylase Vfdnq1953-15-72 04:08:00* Test Item Value Reference Range Interpretation Comments Amylase Level (test code = 1798-8) 48 25-125 [facility] CenterUrine IPI8498-67-68 01:56:00* Test Item Value Reference Range Interpretation Comments Urine WBC (test code = 5821-4) 0-5 0-5 [facility] CenterUrine LUP0624-24-82 01:56:00* Test Item Value Reference Range Interpretation Comments Urine RBC (test code = 79105-3) 0-5 0-5 [facility] CenterU[facility] Saaeqepr7336-58-13 01:56:00* Test Item Value Reference Range Interpretation Comments Urine Bacteria (test code = 83969-1) FEW NONE [facility] CenterUrine Epithelial Wfnmb0495-20-13 01:56:00 * Test Item Value Reference Range Interpretation Comments Urine Epithelial Cells (test code = 64243-3) FEW NONE [facility] CenterUrine Dpxzb3676-65-42 01:56:00* Test Item Value Reference Range Interpretation Comments Urine Mucus (test code = 8247-9) FEW RARE H [facility] XLB8852-42-30 01:56:00* Test Item Value Reference Range Interpretation Comments Urine WBC (test code = 5821-4) 0-5 0-5 [facility] SVE4589-39-17 01:56:00* Test Item Value Reference Range Interpretation Comments Urine RBC (test code = 09984-8) 0-5 0-5 [facility] Hbemdtkh1740-15-26 01:56:00* Test Item Value Reference Range Interpretation Comments Urine Bacteria (test code = 60997-2) FEW NONE [facility] Epithelial Wegcr2496-26-36 01:56:00 * Test Item Value Reference Range Interpretation Comments Urine Epithelial Cells (test code = 83875-4) FEW NONE [facility] Jchvj7340-69-78 01:56:00* Test Item Value Reference Range Interpretation Comments Urine Mucus (test code = 8247-9) FEW RARE H [facility] NHN4056-59-35 01:56:00* Test Item Value Reference Range Interpretation Comments Urine WBC (test code = 5821-4) 0-5 0-5 [facility] EWN9113-43-56 01:56:00* Test Item Value Reference Range Interpretation Comments Urine RBC (test code = 01109-7) 0-5 0-5 [facility] Mnnnyblj3610-86-88 01:56:00* Test Item Value Reference Range Interpretation Comments Urine Bacteria (test code = 93516-8) FEW [facility] Epithelial Wjjpc9919-76-40 01:56:00 * Test Item Value Reference Range Interpretation Comments Urine Epithelial Cells (test code = 44375-7) FEW [facility] Okzgv1606-17-01 01:56:00* Test Item Value Reference Range Interpretation Comments Urine Mucus (test code = 8247-9) FEW RARE H [facility] Ggbqm1424-84-79 01:56:00* Test Item Value Reference Range Interpretation Comments Urine Mucus (test code = 8247-9) FEW RARE H [facility] CenterUrine Udlsf6882-16-32 01:56:00* Test Item Value Reference Range Interpretation Comments Urine Mucus (test code = 8247-9) FEW RARE H [facility] CenterU[facility] Aovep3177-97-86 01:56:00* Test Item Value Reference Range Interpretation Comments Urine Mucus (test code = 8247-9) FEW RARE H [facility] CenterUrine Ogqxm5320-15-89 01:47:00* Test Item Value Reference Range Interpretation Comments Urine Color (test code = 5778-6) YELLOW YELLOW [facility] CenterU[facility] Epmgnqs6396-83-14 01:47:00* Test Item Value Reference Range Interpretation Comments Urine Clarity (test code = 86583-3) CLEAR CLEAR [facility] Specific Ttknxvy4384-49-66 01:47:00 * Test Item Value Reference Range Interpretation Comments Urine Specific [place] (test code = 5811-5) 1.020 1.010-1.02 5 [facility] CenterU[facility] iT1598-37-37 01:47:00* Test Item Value Reference Range Interpretation Comments Urine pH (test code = 74482-8) 8 5-7 H [facility] CenterU[facility] Leukocyte Pvivbmrl6622-42-28 01:47:00* Test Item Value Reference Range Interpretation Comments Urine Leukocyte Esterase (test code = 5799-2) NEGATIVE NEGATIVE [facility] CenterU[facility] Krikxuh1231-99-29 01:47:00* Test Item Value Reference Range Interpretation Comments Urine Nitrite (test code = 64794-0) NEGATIVE NEGATIVE [facility] CenterU[facility] Mmffera0019-01-93 01:47:00* Test Item Value Reference Range Interpretation Comments Urine Protein (test code = 5804-0) 1+ NEGATIVE H [facility] CenterUrine Glucose (UA)2018-07-02 01:47:00* Test Item Value Reference Range Interpretation Comments Urine Glucose (UA) (test code = 2349-9) NEGATIVE NEGATIVE [facility] CenterU[facility] Avfmjpl0132-35-13 01:47:00* Test Item Value Reference Range Interpretation Comments Urine Ketones (test code = 96302-4) 2+ NEGATIVE H [facility] CenterU[facility] Rmgvfzcjtzwr3794-50-98 01:47:00* Test Item Value Reference Range Interpretation Comments Urine Urobilinogen (test code = 53861-6) 0.2 0.2-1 [facility] Center[facility] Jqigrzteg0170-03-36 01:47:00* Test Item Value Reference Range Interpretation Comments Urine Bilirubin (test code = 1978-6) 1+ NEGATIVE H Confirmatory test currently unavailable. False positive results may occur.[facility] Zyzvn0992-07-59 01:47:00* Test Item Value Reference Range Interpretation Comments Urine Blood (test code = 83079-1) NEGATIVE NEGATIVE [facility] Center[facility] Gtllt5413-81-05 01:47:00* Test Item Value Reference Range Interpretation Comments Urine Color (test code = 5778-6) YELLOW YELLOW [facility] CenterU[facility] Bmcatgx7281-58-53 01:47:00* Test Item Value Reference Range Interpretation Comments Urine Clarity (test code = 78432-3) CLEAR CLEAR [facility] CenterU[facility] Specific Sgbqahx0395-84-09 01:47:00 * Test Item Value Reference Range Interpretation Comments Urine Specific [place] (test code = 5811-5) 1.020 1.010-1.02 5 [facility] CenterU[facility] xE3980-24-29 01:47:00* Test Item Value Reference Range Interpretation Comments Urine pH (test code = 02420-2) 8 5-7 H [facility] CenterU[facility] Leukocyte Yoiyrfnt4765-65-97 01:47:00* Test Item Value Reference Range Interpretation Comments Urine Leukocyte Esterase (test code = 5799-2) NEGATIVE NEGATIVE [facility] Mbtsybh0263-48-44 01:47:00* Test Item Value Reference Range Interpretation Comments Urine Nitrite (test code = 04327-5) NEGATIVE NEGATIVE [facility] CenterU[facility] Wqjreuu6817-18-08 01:47:00* Test Item Value Reference Range Interpretation Comments Urine Protein (test code = 5804-0) 1+ NEGATIVE H [facility] CenterU[facility] Glucose (UA)2018-07-02 01:47:00* Test Item Value Reference Range Interpretation Comments Urine Glucose (UA) (test code = 2349-9) NEGATIVE NEGATIVE [facility] Resgonh6667-27-25 01:47:00* Test Item Value Reference Range Interpretation Comments Urine Ketones (test code = 45247-4) 2+ NEGATIVE H [facility] Ueycxqantfrc4045-05-48 01:47:00* Test Item Value Reference Range Interpretation Comments Urine Urobilinogen (test code = 82590-1) 0.2 0.2-1 [facility] Ajrhjdxyh1279-55-70 01:47:00* Test Item Value Reference Range Interpretation Comments Urine Bilirubin (test code = 1978-6) 1+ NEGATIVE H Confirmatory test currently unavailable. False positive results may occur.[facility] Ptadh4109-56-88 01:47:00* Test Item Value Reference Range Interpretation Comments Urine Blood (test code = 18755-8) NEGATIVE NEGATIVE [facility] Umipb7238-91-52 01:47:00* Test Item Value Reference Range Interpretation Comments Urine Color (test code = 5778-6) YELLOW YELLOW [facility] Vlxtycr3387-53-64 01:47:00* Test Item Value Reference Range Interpretation Comments Urine Clarity (test code = 43926-5) CLEAR CLEAR [facility] Center[facility] Specific Pwbxjns1717-27-95 01:47:00 * Test Item Value Reference Range Interpretation Comments Urine Specific [place] (test code = 5811-5) 1.020 1.010-1.02 5 [facility] Center[facility] cC2488-27-99 01:47:00* Test Item Value Reference Range Interpretation Comments Urine pH (test code = 09093-5) 8 5-7 H [facility] Leukocyte Iglwqfyk1174-53-61 01:47:00* Test Item Value Reference Range Interpretation Comments Urine Leukocyte Esterase (test code = 5799-2) NEGATIVE NEGATIVE [facility] Pdegtdw0337-92-83 01:47:00* Test Item Value Reference Range Interpretation Comments Urine Nitrite (test code = 55364-6) NEGATIVE NEGATIVE [facility] Drmbdqd0156-23-83 01:47:00* Test Item Value Reference Range Interpretation Comments Urine Protein (test code = 5804-0) 1+ NEGATIVE H [facility] CenterU[facility] Glucose (UA)2018-07-02 01:47:00* Test Item Value Reference Range Interpretation Comments Urine Glucose (UA) (test code = 2349-9) NEGATIVE NEGATIVE [facility] Ziqnlee2157-16-65 01:47:00* Test Item Value Reference Range Interpretation Comments Urine Ketones (test code = 66360-3) 2+ NEGATIVE H [facility] CenterU[facility] Zdzlsybsqhsd2055-68-46 01:47:00* Test Item Value Reference Range Interpretation Comments Urine Urobilinogen (test code = 16880-5) 0.2 0.2-1 [facility] Dzclhwini0602-50-67 01:47:00* Test Item Value Reference Range Interpretation Comments Urine Bilirubin (test code = 1978-6) 1+ NEGATIVE H Confirmatory test currently unavailable. False positive results may occur.[facility] CenterU[facility] Plrci3073-87-80 01:47:00* Test Item Value Reference Range Interpretation Comments Urine Blood (test code = 69655-3) NEGATIVE NEGATIVE [facility] CenterUS ABDOMEN ALSESJJK5170-12-02 10:20:00 [facility] [address] [place] [address] Patient Name: BREE LINDSAY MR #: [id number] : [id number] Age/Sex: 42/M Req #: [id number] Adm Physician: Ordered by: TAVIA GARCIA MD Report #: [id number] Location: Room/Bed: Procedure: [id number] U S/US ABDOMEN COMPLETE Exam Date: Exam [...] 102 3 COPY TO: TAVIA GARCIA MD LJZHWK1569-86-72 05:55:00* Test Item Value Reference Range Interpretation Comments GLUBED (test code = GLUBED) 195 mg/dL 74-106 H Performed by certified raisin separator operator at [facility] GPZETD9231-08-12 17:33:00* Test Item Value Reference Range Interpretation Comments GLUBED (test code = GLUBED) 151 mg/dL 74-106 H Performed by certified raisin separator operator at [facility] BASIC METABOLIC OXCVQ1246-90-32 15:46:00* Test Item Value Reference Range Interpretation [...] code = CA) 7.7 mg/dL 8.5-10.1 L [id number] 12:16:00* Test Item Value Reference Range Interpretation Comments GLUBED (test code = GLUBED) 136 mg/dL 74-106 H Performed by certified raisin separator operator at [facility] XNBWEM5425-08-35 07:53:00* Test Item Value Reference Range Interpretation Comments GLUBED (test code = GLUBED) 129 mg/dL 74-106 H Performed by certified raisin separator operator at [facility] COMPREHENSIVE METABOLIC BLBXG5099-74-40 06:41:00* Test Item Value Reference Range Interpretation Comments SODIUM (test code = NA) 139 mmol/L 136-145 N POTASSIUM (test code = K) 2.7 mmol/L 3.5-5.1 [facility] sults called to [id number] by [email or web address] 05/16/18 0636Critical results verified and [...] due to change in reagent. CBC W/AUTO [id number] 05:31:00* Test Item Value Reference Range Interpretation [...] code = NRBC#) 0.00 K/mm3 0.0-0.1 N [id number] 20:43:00* Test Item Value Reference Range Interpretation Comments GLUBED (test code = GLUBED) 122 mg/dL 74-106 H Performed by certified raisin separator operator at [facility] FLTQCC4689-99-97 17:15:00* Test Item Value Reference Range Interpretation Comments GLUBED (test code = GLUBED) 145 mg/dL 74-106 H Performed by certified raisin separator operator at [facility] YNYDBA1439-13-75 11:46:00* Test Item Value Reference Range Interpretation Comments GLUBED (test code = GLUBED) 228 mg/dL 74-106 H Performed by certified raisin separator operator at [facility] QJFUNG6225-37-21 07:49:00* Test Item Value Reference Range Interpretation Comments GLUBED (test code = GLUBED) 123 mg/dL 74-106 H Performed by certified raisin separator operator at [facility] COMPREHENSIVE METABOLIC [id number] 07:19:00* Test Item Value Reference Range Interpretation Comments SODIUM (test code = NA) 140 mmol/L 136-145 N POTASSIUM (test code = K) 2.9 mmol/L 3.5-5.1 L Re sults called to [id number] by [email or web address] 05/15/18 0716Critical results verified and read back [...] due to change in reagent. CBC W/AUTO [id number] 06:20:00* Test Item Value Reference Range Interpretation [...] code = NRBC#) 0.00 K/mm3 0.0-0.1 N [id number] 21:14:00* Test Item Value Reference Range Interpretation Comments GLUBED (test code = GLUBED) 152 mg/dL 74-106 H Performed by certified raisin separator operator at [facility] QMTXNX7264-20-83 17:16:00* Test Item Value Reference Range Interpretation Comments GLUBED (test code = GLUBED) 140 mg/dL 74-106 H Performed by certified raisin separator operator at [facility] BKXKQO9542-00-39 11:55:00* Test Item Value Reference Range Interpretation Comments GLUBED (test code = GLUBED) 236 mg/dL 74-106 H Performed by certified raisin separator operator at [facility] COMPREHENSIVE METABOLIC [id number] 08:50:00* Test Item Value Reference Range Interpretation [...] due to change in reagent. COMPREHENSIVE METABOLIC [id number] 08:38:00* Test Item Value Reference Range Interpretation [...] code = ALKP) IUnit/L 45-117 CBC W/AUTO [id number] 08:00:00* Test Item Value Reference Range Interpretation [...] DIFF REQUIRED (test code = MDIFF) NO [id number] 07:51:00* Test Item Value Reference Range Interpretation Comments GLUBED (test code = GLUBED) 210 mg/dL 74-106 H Performed by certified raisin separator operator at [facility] XUZCVC9062-16-91 20:06:00* Test Item Value Reference Range Interpretation Comments GLUBED (test code = GLUBED) 278 mg/dL 74-106 H Performed by certified raisin separator operator at [facility] BZDWYB5962-86-69 16:53:00* Test Item Value Reference Range Interpretation Comments GLUBED (test code = GLUBED) 236 mg/dL 74-106 H Performed by certified raisin separator operator at [facility] EQZFJT0049-55-44 11:31:00* Test Item Value Reference Range Interpretation Comments GLUBED (test code = GLUBED) 269 mg/dL 74-106 H Performed by certified raisin separator operator at [facility] [id number] 10:39:00* Test Item Value Reference Range Interpretation Comments GLUBED (test code = GLUBED) 298 mg/dL 74-106 H Performed by certified raisin separator operator at [facility] COMPREHENSIVE METABOLIC [id number] 06:29:00* Test Item Value Reference Range Interpretation [...] due to change in reagent. COMPREHENSIVE METABOLIC [id number] 06:10:00* Test Item Value Reference Range Interpretation [...] code = ALKP) IUnit/L 45-117 CBC W/AUTO [id number] 05:48:00* Test Item Value Reference Range Interpretation [...] DIFF REQUIRED (test code = MDIFF) NO [id number] 20:52:00* Test Item Value Reference Range Interpretation Comments GLUBED (test code = GLUBED) 238 mg/dL 74-106 H Performed by certified raisin separator operator at [facility] [id number] 15:54:00* Test Item Value Reference Range Interpretation Comments GLUBED (test code = GLUBED) 199 mg/dL 74-106 H Performed by certified raisin separator operator at [facility] [id number] 11:51:00* Test Item Value Reference Range Interpretation Comments GLUBED (test code = GLUBED) 265 mg/dL 74-106 H Performed by certified raisin separator operator at [facility] [id number] 08:20:00* Test Item Value Reference Range Interpretation Comments GLYCOSYLATED HEMOGLOBIN (HA1C) (test code = GLYHGB) 10.6 % HbA1 4. 8-6.0 H ESTIMATED AVERAGE GLUCOSE (test code = EAG) 258 MG/DL COMPREHENSIVE METABOLIC [id number] 08:11:00* Test Item Value Reference Range Interpretation [...] result is a direct measurement.========= THYROID STIMULATING [id number] 08:11:00* Test Item Value Reference Range Interpretation Comments THYROID STIMULATING HORMONE (test code = TSH) 1.020 uIU/mL 0.36-3.7 4 N TSH REFERENCE RANGES: EUTHYROID: 0.35 - 4.3 mIU/mL HYPO : > 5.5 mIU/mL HYPER : < 0.35 mIU/mL COMPREHENSIVE METABOLIC [id number] 07:53:00* Test Item Value Reference Range Interpretation [...] code = LDL) mg/dL 100-129 THYROID STIMULATING [id number] 07:53:00* Test Item Value Reference Range Interpretation Comments THYROID STIMULATING HORMONE (test code = TSH) uIU/mL 0.36-3.7 4 CBC W/AUTO [id number] 07:51:00* Test Item Value Reference Range Interpretation [...] DIFF REQUIRED (test code = MDIFF) NO [id number] 07:10:00* Test Item Value Reference Range Interpretation Comments GLUBED (test code = GLUBED) 350 mg/dL 74-106 H Performed by certified raisin separator operator at [facility] DRUGS OF ABUSE SCREEN [id number] 06:10:00* Test Item Value Reference Range Interpretation [...] code = [place]) NEGATIVE <300 ng/mL URINALYSIS [id number] 05:29:00* Test Item Value Reference Range Interpretation [...] Urine Source? Clean CatchDRUGS OF ABUSE SCREEN [id number] 05:12:00* Test Item Value Reference Range Interpretation [...] METHADONE (test code = [place]) <300 ng/mL [id number] 20:26:00* Test Item Value Reference Range Interpretation Comments GLUBED (test code = GLUBED) 285 mg/dL 74-106 H Performed by certified raisin separator operator at [facility] [id number] 13:32:00* Test Item Value Reference Range Interpretation Comments GLUBED (test code = GLUBED) 159 mg/dL 74-106 H Performed by certified raisin separator operator at [facility] BASIC METABOLIC [id number] 09:38:00* Test Item Value Reference Range Interpretation [...] CA) 8.9 mg/dL 8.5-10.1 N HEPATIC FUNCTION [id number] 09:38:00* Test Item Value Reference Range Interpretation [...] reference range due to change in reagent. [id number] 09:38:00* Test Item Value Reference Range Interpretation Comments LIPASE (test code = LIP) 20 U/L 73.0-393.0 L BASIC METABOLIC [id number] 09:30:00* Test Item Value Reference Range Interpretation [...] code = CA) mg/dL 8.5-10.1 HEPATIC FUNCTION [id number] 09:30:00* Test Item Value Reference Range Interpretation [...] TOTAL (test code = ALKP) IUnit/L 45-117 [id number] 09:30:00* Test Item Value Reference Range Interpretation Comments LIPASE (test code = LIP) U/L 73.0-393.0 CBC W/O [id number] 09:13:00* Test Item Value Reference Range Interpretation [...] code = MPV) 10.6 fL 6.7-11.0 N [id number] 07:28:00* Test Item Value Reference Range Interpretation Comments GLUBED (test code = GLUBED) 173 mg/dL 74-106 H Performed by certified raisin separator operator at [facility] [id number] 20:56:00* Test Item Value Reference Range Interpretation Comments GLUBED (test code = GLUBED) 181 mg/dL 74-106 H Performed by certified raisin separator operator at [facility] [id number] 16:11:00* Test Item Value Reference Range Interpretation Comments GLUBED (test code = GLUBED) 245 mg/dL 74-106 H Performed by certified raisin separator operator at [facility] [id number] 11:55:00* Test Item Value Reference Range Interpretation Comments GLUBED (test code = GLUBED) 309 mg/dL 74-106 H Performed by certified raisin separator operator at [facility] [id number] 08:03:00* Test Item Value Reference Range Interpretation Comments GLUBED (test code = GLUBED) 241 mg/dL 74-106 H Performed by certified raisin separator operator at [facility] [id number] 00:08:00* Test Item Value Reference Range Interpretation Comments GLUBED (test code = GLUBED) 175 mg/dL 74-106 H Performed by certified raisin separator operator at [facility] [id number] 20:00:00* Test Item Value Reference Range Interpretation Comments GLUBED (test code = GLUBED) 167 mg/dL 74-106 H Performed by certified raisin separator operator at [facility] [id number] 16:45:00* Test Item Value Reference Range Interpretation Comments GLUBED (test code = GLUBED) 208 mg/dL 74-106 H Performed by certified raisin separator operator at [facility] [id number] 16:01:00* Test Item Value Reference Range Interpretation Comments GLUBED (test code = GLUBED) 47 mg/dL 74-106 LL [facility] [id number] 11:44:00* Test Item Value Reference Range Interpretation Comments GLUBED (test code = GLUBED) 317 mg/dL 74-106 H Performed by certified raisin separator operator at [facility] [id number] 08:20:00* Test Item Value Reference Range Interpretation Comments GLUBED (test code = GLUBED) 271 mg/dL 74-106 H Performed by certified raisin separator operator at [facility] CBC W/AUTO [id number] 05:45:00* Test Item Value Reference Range Interpretation [...] = MDIFF) NO, ONLY SCAN NEEDED DIFFERENTIAL [id number] 05:45:00* Test Item Value Reference Range Interpretation Comments STAIN ACCEPTABILITY (test code = STN ACCEPTABLE) STAIN ACCEPTABLE POLYCHROMASIA (test code = POLC) 1+ HYPOCHROMIA (test code = HYPO) 1+ PLATELET ESTIMATE (test code = PLTEST) ADEQUATE PLATELET MORPHOLOGY (test code = PLTMORPH) NORMAL CBC W/AUTO [id number] 05:08:00* Test Item Value Reference Range Interpretation [...] = MDIFF) NO, ONLY SCAN NEEDED DIFFERENTIAL [id number] 05:08:00* Test Item Value Reference Range Interpretation Comments STAIN ACCEPTABILITY (test code = STN ACCEPTABLE) CABOT RINGS (test code = CAB) MORPHOLOGY COMMENT (test code = MOC) PLATELET ESTIMATE (test code = PLTEST) PLATELET MORPHOLOGY (test code = PLTMORPH) CBC W/AUTO [id number] 05:08:00* Test Item Value Reference Range Interpretation [...] = MDIFF) NO, ONLY SCAN NEEDED DIFFERENTIAL [id number] 05:08:00* Test Item Value Reference Range Interpretation Comments STAIN ACCEPTABILITY (test code = STN ACCEPTABLE) MORPHOLOGY COMMENT (test code = MOC) PLATELET ESTIMATE (test code = PLTEST) PLATELET MORPHOLOGY (test code = PLTMORPH) CBC W/AUTO [id number] 05:08:00* Test Item Value Reference Range Interpretation [...] = MDIFF) NO, ONLY SCAN NEEDED DIFFERENTIAL [id number] 05:08:00* Test Item Value Reference Range Interpretation Comments STAIN ACCEPTABILITY (test code = STN ACCEPTABLE) MORPHOLOGY COMMENT (test code = MOC) PLATELET ESTIMATE (test code = PLTEST) PLATELET MORPHOLOGY (test code = PLTMORPH) CBC W/AUTO [id number] 05:08:00* Test Item Value Reference Range Interpretation [...] = MDIFF) NO, ONLY SCAN NEEDED DIFFERENTIAL [id number] 05:08:00* Test Item Value Reference Range Interpretation Comments STAIN ACCEPTABILITY (test code = STN ACCEPTABLE) CABOT RINGS (test code = CAB) MORPHOLOGY COMMENT (test code = MOC) PLATELET ESTIMATE (test code = PLTEST) PLATELET MORPHOLOGY (test code = PLTMORPH) COMPREHENSIVE METABOLIC [id number] 05:04:00* Test Item Value Reference Range Interpretation [...] due to change in reagent. COMPREHENSIVE METABOLIC [id number] 04:54:00* Test Item Value Reference Range Interpretation [...] TOTAL (test code = ALKP) IUnit/L 45-117 [id number] 21:00:00* Test Item Value Reference Range Interpretation Comments GLUBED (test code = GLUBED) 334 mg/dL 74-106 H Performed by certified raisin separator operator at [facility] [id number] 16:10:00* Test Item Value Reference Range Interpretation Comments GLUBED (test code = GLUBED) 102 mg/dL 74-106 N Performed by certified raisin separator operator at [facility] [id number] 15:59:00* Test Item Value Reference Range Interpretation Comments GLUBED (test code = GLUBED) 339 mg/dL 74-106 H Performed by certified raisin separator operator at [facility] URINALYSIS [id number] 09:47:00* Test Item Value Reference Range Interpretation [...] 0-2 #/HPF 0-5 Urine Source? Clean CatchURINALYSIS [id number] 09:46:00* Test Item Value Reference Range Interpretation [...] HPF 0-5 Urine Source? Clean CatchBASIC METABOLIC [id number] 04:02:00* Test Item Value Reference Range Interpretation [...] CA) 9.3 mg/dL 8.5-10.1 N HEPATIC FUNCTION [id number] 04:02:00* Test Item Value Reference Range Interpretation [...] reference range due to change in reagent. [id number] 04:02:00* Test Item Value Reference Range Interpretation Comments LIPASE (test code = LIP) 22 U/L 73.0-393.0 L BASIC METABOLIC [id number] 03:53:00* Test Item Value Reference Range Interpretation [...] code = CA) mg/dL 8.5-10.1 HEPATIC FUNCTION [id number] 03:53:00* Test Item Value Reference Range Interpretation [...] TOTAL (test code = ALKP) IUnit/L 45-117 [id number] 03:53:00* Test Item Value Reference Range Interpretation Comments LIPASE (test code = LIP) U/L 73.0-393.0 CBC W/O [id number] 03:46:00* Test Item Value Reference Range Interpretation [...] code = MPV) 10.9 fL 6.7-11.0 N [id number] 17:23:00 RUN DATE: 12/16/17 [facility] PAGE 1 RUN TIME: 1723 Specimen Inqui ry RUN USER: INTERFACE PATIENT: DAISHABREE ACCT #: [id number] LOC: JOHNATHAN Mclaughlin #: [id number] AGE/SX: 42/M ROOM: [facility] RE12/11/17YUNIEL DR: Olegario Diaz MD : 75 BED: A DIS: 12/13/17 STATUS: DIS IN TLOC: SPEC #: [id number] RECD: 12/14/17-114 STATUS: SHAHRAM LUEVANO #: [id number] HUY: 12/11/17- SUBM DR: Kvng Izaguirre MD ENTERED: 12/14/17-1150 SP TYPE: STOMACH OTHR DR: Levi Natarajan i, MD ORDERED: GROSS COPIES TO: Kvng Izaguirre MD [address] [place] [address] Levi Lakhani MD [address] [place] [address] PROCEDURES: GROSS (12/15/17-1304 ) TISSUES: 1. GASTRIC [...] AND DYSPLASIA NEGATIVE FOR MALIGNANCY MYA/sm D (2) [phone], [id number] CONTINUED ON NEXT PAGE RUN DATE: 12/16/17 [facility] PAGE 2 RUN TIME: 172 3 Specimen Inquiry RUN USER: INTER FACE SPEC #: [id number] PATIENT: BREE LINDSAY #[id number] (Con tinued) MACROSCOPIC The first specimen is [...] measuring 0.2 cm each. GROSS PERFORMED AT [facility] [address] [place] [address] (p)[phone] MICROSCOPIC MICROSCOPIC PERFORMED AT [facility] All of the stains, including any controls performed, hao swift. [facility] [address] [place] [address] (p)[phone] PERFORMING SITE Diagnosis performed at: [facility], [place] [address] [place] [address], [place] [address] Signed SIGNATURE ON FILE Leigh Ann Fuller 12/16/17 1723 END OF REPORT
[2019-11-11] MEDS ORDERED: FAMOTIDINE 20 MG/2 ML VIAL IV STA (22:46)
[2019-11-11] MEDS ORDERED: SODIUM CHLORIDE 0.9% 1000ML 1,000 ML ONE (22:53)
[2019-11-11] MEDS ORDERED: SODIUM CHLORIDE 0.9% 50ML 50 ML ONE (22:53)
[2019-11-11] MEDS ORDERED: FAMOTIDINE 20 MG/2 ML VIAL IV ONE (22:53)
[2019-11-11] MEDS ORDERED: PROMETHAZINE HCL (IM) 25 MG/ML VIAL IM ONE (22:53)
[2019-11-11] MEDS ORDERED: SODIUM CHLORIDE 0.9% 1000ML 1,000 ML IV SCH (23:00)
[2019-11-11] MEDS ORDERED: PROMETHAZINE 25MG/ NS 50ML (IV) IV ONE (23:00)
--- NOTE | 2019-11-11 23:20 | NUR ---
RETURNED TO RM 3 VIA WC WITH AIRCRAFT QUALITY CONTROL INSPECTOR
--- NOTE | 2019-11-11 23:33 | Emergency Department Note ---
History of Present Illnes History of Present Illness Chief Complaint: Abdominal Complaints History of Present Illness This is a 43 year old male with a history of IDDM, ga stroparesis, and peripheral neuropathy who presents with complaints of nausea, vomiting, and epigastric pain that started this morning proximal was 7 AM. Patient has been seen in the ED multiple times this year with similar symptoms, and he was most recently seen here 4 days ago. Patient states that he ate some ground meat for dinner last night, and believes that is what :"upset his stomach." Upon awakening this morning, he began to vomit up the food from last night, and then the rest of the day he has vomited up "stomach acid." He has had total of 6-7 episodes of emesis, with no hematemesis or coffee-ground emesis. He is having some upper abdominal "cramping." He denies any cough, upper respiratory symptoms, chest pain, or shortness of breath. He had a normal bowel movement this morning, and has had no melena or hematochezia. He denies any dysuria, frequency, or urgency. Patient has taken 2 doses of Reglan 10 mg today, as well as his Protonix. He has not taken his insulin, and he did not check his blood sugar today. His current symptoms are similar to those that he has had on similar ER visits. Pt admits to smoking marijuana at least every other day, and he states that, "he is trying to quit." Historian: Patient Arrival Mode: Car Manuscripts Curator Required: No Onset (how long ago): hour(s) (13) Location: abdomen Quality: nausea, vomiting, upper abdominal cramping Radiation: Reports non-radiation Severity: moderate Onset quality: sudden Duration (how long): hour(s) (13) Timing of current episode: constant Progression: unchanged Chronicity: recurrent (.) Context: Reports recent illness (admitted 10/26 - 10/27 with recurrent symptoms) Relieving factors: none Exacerbating factors: none Associated symptoms: Reports diaphoresis (sweating, when nauseated), Reports nausea/vomiting; Denies chest pain, Denies cough, Denies fever/chills, Denies shortness of breath, Denies weakness Treatments prior to arrival: other (Reglan and Protonix) Risk factors: diabetes, gastroparesis, frequent marijuana use, daily Tramadol use; Past Medical/Family History Physician Review I have reviewed the patient's past medical and family history. Any updates have been documented here. Past Medical History Recent Fever: No Clinical Suspicion of Infectio: No New/Unexplained Change in Ment: No Past Medical History: Diabetes (IDDM) Other Medical History: GASTROPORESIS Peripheral Neuropathy Past Surgical History: Cholecysctectomy Other Surgery: L-FOOT Surgery - due to infection, seeing wound care Social History Smoking Cessation: Never Smoker Alcohol Use: None Any Illegal Drug Use: Yes (smokes marijuana at least) TB Exposure/Symptoms: No Physically hurt or threatened: No Family History Family history of heart diseas: No Other Last Tetanus: UNKNOWN Any Pre-Existing Lines (PICC,: No Review of Systems Review of Systems Constitutional: Reports malaise; Denies chills, Denies fever, Denies weakness EENTM: Reports no symptoms Cardiovascular: Denies chest pain, Denies palpitations Respiratory: Denies cough, Denies dyspnea Gastrointestinal: Reports abdominal pain (epigastric), Reports nausea, Reports vomiting (6-7 x today, with last episode in the waiting room); Denies constipation, Denies diarrhea Genitourinary: Reports no symptoms Musculoskeletal: Denies back pain, Denies joint pain, Denies joint swelling, Denies neck pain Integumentary: Reports no symptoms; Denies change in color, Denies rash, Denies poor turgor Neurological: Reports numbness (feet); Denies headache, Denies weakness Psychological: Reports no symptoms Hematological/Lymphatic: Reports no symptoms Review of other systems: All other systems negative Physical Exam Related Data Allergies: Coded Allergies: No Known Allergies (Unverified , 07/02/18) Triage Vital Signs Vital Signs Date Time Temp Pulse Resp B/P (MAP) Pulse Ox O2 Delivery O2 Flow Rate FiO2 11/11/19 22:05 97.5 101 18 158/97 98 Room Air Vital signs reviewed: Yes Physical Exam CONSTITUTIONAL Constitutional: Present well-developed, Present well-nourished, Present other (forceful dry heaving, sweating) HENT HENT: Present normocephalic, Present atraumatic, Present oropharynx clear/moist, Present nose normal HENT L/R: Present left ext ear normal, Present right ext ear normal EYES Eyes: Reports PERRL, Reports conjunctivae normal NECK Neck: Present ROM normal, Present supple; Absent cervical adenopathy PULMONARY Pulmonary: Present effort normal, Present breath sounds normal CARDIOVASCULAR Cardiovascular: Present regular rhythm, Present heart sounds normal, Present capillary refill normal, Present normal rate GASTROINTESTINAL Abdominal: Present soft, Present nontender, Present bowel sounds normal GENITOURINARY Genitourinary: Present exam deferred SKIN Skin: Present warm, Present dry; Absent rash MUSCULOSKELETAL Musculoskeletal: Present ROM normal; Absent edema, Absent tenderness, Absent swelling NEUROLOGICAL Neurological: Present alert, Present oriented x 3, Present no gross motor or sensory deficits PSYCHOLOGICAL Psychological: Present mood/affect normal, Present judgement normal Results Laboratory Laboratory CBC - nl except for H/H = 12.1/38.6; BMP - nl, except for gluc = 125; Liver Profile - normal, including normal amylase; UA - pt would not attempt to provide a specimen; Lab results reviewed: Yes Imaging Imaging results reviewed: Yes Impressions [place] [address] Patient Name: BREE ASHTON MR #: [id number] : 1975 Age/Sex: 43/M Req #: [id number] Adm Physician: Ordered by: YUMIKO LYNNE MD Report #: [id number] Location: [facility] Room/Bed: Procedure: [id number] HOPD/ABDOMEN COMPLETE - HOPD Exam Date: 11/11/19 Exam Time: 2322 REPORT STATUS: Signed EXAM: Abdomen and chest, 5 radiographs INDICATION: ^persistent vomiting ^[id number] ^2322 COMPARISON: CT dated 10/04/2019 FINDINGS: Lungs are clear. No focal consolidation. No pleural effusion or pneumothorax. Nonobstructive bowel gas pattern. No signs of pneumoperitoneum. Moderate colonic stool burden. No calcifications overlying renal shadows. Right upper quadrant surgical clips, likely related to cholecystectomy. Pelvic phleboliths. No acute osseous abnormality. IMPRESSION: Nonobstructive bowel gas pattern. No acute thoracic abnormality. Signed by: Dr. David Ryan MD on 11/12/2019 12:02 AM Dictated By: DAVID RYAN MD Transcribed By: PAULA on 11/12/191 COPY TO: YUMIKO LYNNE MD~ Diagnostics Tests Diagnostic test(s) reviewed: Yes Assessment & Plan Medical Decision Making MDM Patient had no vomiting, after he was brought back to a room in the ED. He had some dry heaving, coughing, and spitting. After he received a dose of IV Phenergan, infused over 30 minutes, and some IV fluids. He did not receive any narcotics, during this ED visit. Patient slept most of the time that he was here, and had to be awakened each time we entered the room. Patient was curled up sleeping, and was instructed at least 3 times to straighten his arm out so that the IV fluids could be infused, but he continued in a comfortable position. He only received 500 mL of saline, after being here for more than 2 hours. He would not attempt to provide a urine specimen. Discussed results of lab and acute abdominal series with patient, all of which were unremarkable, other than slightly elevated blood glucose. I reviewed discharge instructions with patient, and he appeared comfortable. He ambulated out of the ED in no acute distress. He was appreciative of the care. - Recommend a clear liquid diet for the next 12 hours, until your stomach is settled. You may then begin a BLAND diet, avoiding any fried, fatty, fast, or spicy foods. - Your encouraged to continue to drink plenty of fluids, especially water, Pedialyte, or G2 Gatorade, with low sugar. - Follow-up with Dr. Torres on 11/14/2019 regarding a referral to the director sports in the [facility] for further evaluation and treatment of your chronic, recurrent nausea and vomiting with gastroparesis. - You are strongly encouraged to STOP SMOKING MARIJUANA altogether, as this is most certainly contributing to here persistent symptoms. Assessment & Plan Final Impression: (1) Nausea & vomiting (2) Diabetic gastroparesis associated with type 2 diabetes mellitus (3) Abdominal pain, acute, epigastric (4) Marijuana dependence Depart Disposition: HOME, SELF-CARE Last Vital Signs Date Time Temp Pulse Resp B/P (MAP) Pulse Ox O2 Delivery O2 Flow Rate FiO2 11/11/19 22:05 97.5 101 18 158/97 98 Room Air Home Meds Active Scripts Promethazine Hcl (PROMETHAZINE HCL) 25 Mg Tablet, 25 MG PO Q6H PRN for nausea and vomiting, #20 TAB 0 Refills Prov:YUMIKO LYNNE MD 11/12/19 Acetaminophen With Codeine (TYLENOL WITH CODEINE #3 TABLET) 1 Each Tablet, 300 MG PO Q12H PRN for ABDOMINAL PAIN, #10 TAB Prov:JAREK LO NP 10/28/19 Promethazine Hcl (PROMETHAZINE HCL) 25 Mg Tablet, 25 MG PO Q6H for vomiting, #20 TAB Prov:FILIBERTO ROSENTHAL MD 09/21/19 Metoclopramide Hcl (REGLAN) 10 Mg Tablet, 1 TAB PO ACHS for 30 Days Before meals Prov:JAREK LO NP 11/25/18 Pantoprazole Sodium* (PROTONIX) 40 Mg Tablet.dr, 40 MG PO DAILY for 30 Days Prov:JAREK LO NP 11/25/18 Reported Medications Ondansetron Hcl (ONDANSETRON HCL) 4 Mg Tablet, 4 MG SL Q6H PRN for NAUSEA 07/02/18 Insulin Glargine (LANTUS 3ML PEN) 100 Units/1 Ml Inj, 15 UNITS SQ HS 07/02/18 Lisinopril (LISINOPRIL) 5 Mg Tablet, 5 MG PO DAILY 07/02/18 Insulin Aspart (NOVOLOG) 100 Units/1 Ml Inj, 8 UNITS SQ TIDWM 07/02/18 Medications in the ED Promethazine HCl 25 mg STK-MED ONCE IM ; Start 11/11/19 at 22:53; Stop 11/11/19 at 22:48; Status DC Sodium Chloride 1,000 ml @ ud STK-MED ONCE .ROUTE ; Start 11/11/19 at 22:53; Stop 11/11/19 at 22:48; Status DC Famotidine 20 mg STK-MED ONCE IV ; Start 11/11/19 at 22:53; Stop 11/11/19 at 22:48; Status DC Sodium Chloride 50 ml @ STK-MED ONCE .ROUTE ; Start 11/11/19 at 22:53; Stop 11/11/19 at 22:48; Status DC Sodium Chloride 1,000 ml @ 0 mls/hr Q0M IV ; Start 11/11/19 at 23:00; Stop 12/11/19 at 22:59; Status UNV Famotidine 20 mg NOW STAT IV ; Start 11/11/19 at 22:46; Stop 11/11/19 at 22:47; Status UNV YUMIKO LYNNE MD Nov 11, 2019 23:33
--- NOTE | 2019-11-12 00:03 | NUR ---
PT ASLEEP ON L-SIDE. AWAKENED TO VOICE BUT RIGHT BACK TO SLEEP
--- NOTE | 2019-11-12 00:06 | Diagnostic Imaging Report ---
EXAM: Abdomen and chest, 5 radiographs INDICATION: ^persistent vomiting ^[id number] ^2325 COMPARISON: CT dated 10/04/2019 FINDINGS: Lungs are clear. No focal consolidation. No pleural effusion or pneumothorax. Nonobstructive bowel gas pattern. No signs of pneumoperitoneum. Moderate colonic stool burden. No calcifications overlying renal shadows. Right upper quadrant surgical clips, likely related to cholecystectomy. Pelvic phleboliths. No acute osseous abnormality. IMPRESSION: Nonobstructive bowel gas pattern. No acute thoracic abnormality. Signed by: Dr. David Martinez MD on 11/12/2019 12:02 AM
--- NOTE | 2019-11-12 00:10 | NUR ---
IN TO GIVE PT TEST RESULTS.
[2019-11-12] MEDS ORDERED: PROMETHAZINE HC25 M1 PO (00:25)
--- NOTE | 2019-11-12 00:25 | NUR ---
DC'D IVSL WITHOUT DIFF. PER MD ORDERS. INFORMED PT OF DC STATUS.
[2019-11-12 00:41] VITALS: BP 150/92
== END 2019-11-12 00:38 | disposition home or self-care (01) ==
LOC: FSED 22:15
DX: E11.43 Type 2 diabetes mellitus with diabetic autonomic (poly)neuropathy (principal); K31.84 Gastroparesis; R11.2 Nausea with vomiting, unspecified; R10.13 Epigastric pain; F12.20 Cannabis dependence, uncomplicated
CPT/HCPCS: 74022; 80048; 80076; 81003; 85025; 96374; 99283; J2550; J7030

== ENCOUNTER 2019-11-17 19:43 | Emergency (ER) | payer MEDICARE ==
[~2019-11-17] VITALS: Ht 185.4 cm; Wt 83.0 kg
--- NOTE | 2019-11-17 21:26 | Emergency Department Note ---
History of Present Illnes History of Present Illness Chief Complaint: General Medicine Complaints History of Present Illness This is a 43 year old male, with a history of poorly controlled IDDM, gastroparesis and peripheral neuropathy, well known to this ED due to frequent visits, who presents with N/V since 8:30 am this morning. He states that he has vomited at least 6 times, containing stomach acid, without hematemesis of coffee ground emesis. Mild epigastric discomfort. Denies fever, chills, upper respiratory symptoms, dysuria or frequency. He hasnt' taken his insulin today and he has no idea what his blood sugars are running today. Historian: Patient Arrival Mode: Car Gastroenterologist Required: No Onset (how long ago): hour(s) (15) Location: diffuse abdomen Quality: crampy, achy Radiation: Reports non-radiation Severity: moderate Onset quality: gradual Duration (how long): hour(s) (15) Timing of current episode: constant Progression: unchanged Chronicity: recurrent Context: Denies recent illness, Denies recent surgery, Denies recent immobilization Relieving factors: none Exacerbating factors: none Associated symptoms: Reports denies other symptoms; Denies diaphoresis, Denies fever/chills Treatments prior to arrival: none Risk factors: IDDM, gastroparesis, non-compliant with medical regimen Past Medical/Family History Physician Review I have reviewed the patient's past medical and family history. Any updates have been documented here. Past Medical History Recent Fever: No Clinical Suspicion of Infectio: No New/Unexplained Change in Ment: No Past Medical History: Diabetes Other Medical History: GASTROPORESIS Peripheral Neuropathy Past Surgical History: Cholecysctectomy Other Surgery: L-FOOT Surgery - due to infection, seeing wound care Social History Smoking Cessation: Never Smoker Counseling Performed: No Alcohol Use: None Any Illegal Drug Use: Yes (marijuana - frequent use) TB Exposure/Symptoms: No Physically hurt or threatened: No Family History Family history of heart diseas: No Other Last Tetanus: UNKNOWN Any Pre-Existing Lines (PICC,: No Is patient up to date on immun: No Review of Systems Review of Systems Constitutional: Denies chills, Denies fever EENTM: Reports no symptoms Cardiovascular: Reports no symptoms; Denies chest pain Respiratory: Denies cough Gastrointestinal: Reports abdominal pain, Reports nausea, Reports vomiting; Denies constipation, Denies diarrhea Genitourinary: Reports no symptoms Musculoskeletal: Reports no symptoms Neurological: Denies headache, Denies numbness, Denies pre-existing deficit, Denies seizure Psychological: Reports no symptoms Endocrine: Reports no symptoms Review of other systems: All other systems negative Physical Exam Related Data Allergies: Coded Allergies: No Known Allergies (Unverified , 07/02/18) Vital signs reviewed: Yes Physical Exam CONSTITUTIONAL Constitutional: Present well-developed, Present well-nourished HENT HENT: Present normocephalic, Present atraumatic, Present oropharynx clear/moist, Present nose normal HENT L/R: Present left ext ear normal, Present right ext ear normal EYES Eyes: Reports PERRL, Reports conjunctivae normal NECK Neck: Present ROM normal PULMONARY Pulmonary: Present effort normal, Present breath sounds normal CARDIOVASCULAR Cardiovascular: Absent regular rhythm, Absent irregular rhythm, Absent heart sounds normal, Absent intact distal pulses, Absent capillary refill normal, Absent normal rate, Absent tachycardia, Absent bradycardia, Absent murmur, Absent gallop, Absent friction rub, Absent palpable pulses, Absent strong pulses, Absent weak pulses, Absent LLE edema, Absent RLE edema, Absent other GASTROINTESTINAL Abdominal: Present soft, Present bowel sounds normal, Present tender (mils epigastric ttp, ); Absent distension, Absent guarding, Absent rebound GENITOURINARY Genitourinary: Present exam deferred SKIN Skin: Present warm, Present dry; Absent rash MUSCULOSKELETAL NEUROLOGICAL PSYCHOLOGICAL Results Laboratory Laboratory CMP - nl except for glucose = 292 mg/dl, AG = 6; CBC - nl except for H/H = 11.7/37.3; UA - glu = 250 mg/dl, ket = 15 mg/dl, blo - trace, pro - 30 mg/dl; Lab results reviewed: Yes Assessment & Plan Medical Decision Making MDM - Pt was able to keep some water down, prior to discharge. He slept the entire time that he was here. He ambulated out of the ED, in NAD. - Follow-up with Dr. Torres tomorrow, regarding recurrent symptoms prompting ER evaluation, to discuss what other treatment might be available, pending referral to specialist for gastric pacemaker. - Follow a bland diet, avoiding fried, fatty, spicy, and fast foods. - Drink plenty of fluids, small amounts frequently, especially water, Pedialyte, and G2 Gatorade. Assessment & Plan Final Impression: (1) Nausea & vomiting (2) Diabetic gastroparesis associated with type 2 diabetes mellitus (3) Hyperglycemia Depart Disposition: HOME, SELF-MCFP Meds Active Scripts Promethazine Hcl (PROMETHAZINE HCL) 25 Mg Tablet, 25 MG PO Q6H PRN for nausea and vomiting, #20 TAB 0 Refills Prov:YUMIKO LYNNE MD 11/18/19 Promethazine Hcl (PROMETHAZINE HCL) 25 Mg Tablet, 25 MG PO Q6H PRN for nausea and vomiting, #20 TAB 0 Refills Prov:YUMIKO LYNNE MD 11/12/19 Acetaminophen With Codeine (TYLENOL WITH CODEINE #3 TABLET) 1 Each Tablet, 300 MG PO Q12H PRN for ABDOMINAL PAIN, #10 TAB Prov:JAREK LO NP 10/28/19 Promethazine Hcl (PROMETHAZINE HCL) 25 Mg Tablet, 25 MG PO Q6H for vomiting, #20 TAB Prov:FILIBERTO ROSENTHAL MD 09/21/19 Metoclopramide Hcl (REGLAN) 10 Mg Tablet, 1 TAB PO ACHS for 30 Days Before meals Prov:JAREK LO NP 11/25/18 Pantoprazole Sodium* (PROTONIX) 40 Mg Tablet.dr, 40 MG PO DAILY for 30 Days Prov:JAREK LO NP 11/25/18 Reported Medications Ondansetron Hcl (ONDANSETRON HCL) 4 Mg Tablet, 4 MG SL Q6H PRN for NAUSEA 07/02/18 Insulin Glargine (LANTUS 3ML PEN) 100 Units/1 Ml Inj, 15 UNITS SQ HS 07/02/18 Lisinopril (LISINOPRIL) 5 Mg Tablet, 5 MG PO DAILY 07/02/18 Insulin Aspart (NOVOLOG) 100 Units/1 Ml Inj, 8 UNITS SQ TIDWM 07/02/18 YUMIKO LYNNE MD Nov 17, 2019 21:26
--- OUTSIDE RECORDS SUMMARY | 2019-11-17 21:52 | XMS REPORT | Clinical Summary ---
Author Author DEMARIO [facility] Address Unknown Phone Unavailable Care Team Providers Care Cost Control Analyst Name Role Phone Pcp, No PCP Unavailable [...] (HCC); Cannabinoid hyperemesis syndrome (HCC); Hypokalemia 12/13/2018 [facility] Internal Wi dicine - Encounter 12/14/2018 12/13/2018 Travel after 11/16/2018 Family History Medical History Relation Name Comments [...] METER Routine 12/13/2018 12:25 PM CDT after 11/16/2018 Results * EKG-SCANNED (12/16/2018 9:02 AM CDT) Narrative Performed At This result has an attachment that is n ot available. * POC-Glucose meter (12/14/2018 5:15 PM CDT) Only the most recent of 6 results within the time period is included. POC-Glucose Meter 266 (H)Comment: TESTED AT 70 - 110 mg/dL C [facility] [address] [facility] [id number] Specimen Blood Performing Organization Address City/State/Zipcode Ph one Number [facility] [place] [phone] [place], [place] [address] [facility] * ECG 12 lead (12/14/2018 10:08 AM CDT) Specimen Narrative Performed At Ventricular Rate 78 BPM GE MUSE Atrial Rate 78 BPM P-R Interval 168 ms QRS Duration 80 ms Q-T Interval 350 ms QTC Calculation(Bazett) 399 ms P [place] 52 degrees R [place] -14 degrees T [place] 35 degrees Normal sinus rhythm Normal ECG No previous ECGs available Confirmed by MD MEGGAN, MARCELINO ([id number] ) on 12/14/2018 2:27:24 PM Procedure Note Interface, External Ris In - 12/14/2018 2:27 PM CDT Ventricular Rate 78 BPM Atrial Rate 78 BPM P-R Interval 168 ms QRS Duration 80 ms Q-T Interval 350 ms QTC Calculation(Bazett) 399 ms P [place] 52 degrees R [place] -14 degrees T [place] 35 degrees Normal sinus rhythm Normal ECG [...] - 10.5 K/L [facility] RBC 3.38 (L) 4.63 - 6.08 M/L [facility] Hemoglobin 9.8 (L) 13.7 - 17.5 GM/DL [facility] Hematocrit 31.1 (L) 40.1 - 51.0 % [facility] MCV 92.0 79.0 - 92.[address] [facility] MCH 29.0 25.7 - 32.[address] [facility] MCHC 31.5 (L) 32.3 - 36.5 GM/DL [facility] RDW 14.1 11.6 - 14.4 % [facility] Platelets 208Comment: Discordant PLT 150 - 450 K/CU MM [facility] results compared to previous [facility] results; clinical correlation required. MPV 10.4 [...] # Neutros 4.92 1.78 - 5.38 K/L [facility] # Lymphs 1.46 1.32 - 3.57 K/L [facility] # Monos 0.92 (H) 0.30 - 0.82 K/L [facility] # Eos 0.10 0.04 - 0.54 K/L [facility] # Baso 0.07 0.01 - 0.08 K/L [facility] Immature 0 0 - 1 % [facility] Granulocytes-Relative [facility] Specimen Blood Performing Organization Address [facility] one Number [place] [phone] [place] [address] * Phosphorus (12/14/2018 4:58 AM CDT) Phosphorus 2.2 (L) 2.3 - 4.7 mg/dL [facility] Specimen Blood Performing Organization Address City/[facility] one Number [place] [phone] [place] [address] * Magnesium (12/14/2018 4:58 AM CDT) Magnesium 1.6 1.6 - 2.6 mg/dL [facility] Specimen Blood Performing Organization Address City/[facility] one Number [address] [facility] * Basic metabolic panel (12/14/2018 4:58 AM CDT) Only the most recent of 2 results within the time period is included. Sodium 139 136 - 145 meq/L [facility] Potassium 3.2 (L) 3.5 - 5.1 meq/L [facility] Chloride 105 98 - 107 meq/L [facility] CO2 28 22 - 29 meq/L [facility] BUN 11 7 - 21 mg/dL [facility] Creatinine 1.12 0.57 - 1.25 mg/dL [facility] Glucose 112 (H) 70 - 105 mg/dL [facility] Calcium 8.7 8.4 - 10.2 mg/dL [facility] EGFR 87Comment: ESTIMATED GFR IS mL/min/1.73 sq m [facility] NOT ACCURATE CREATININE [facility] CLEARANCE IN PREDICTING GLOMERULAR FILTRATION RATE. ESTIMATED GFR IS NOT APPLICABLE FOR DIALYSIS PATIENTS. Specimen Blood Performing Organization Address [facility] one [place] [address] [facility] * Hemoglobin A1c (12/13/2018 3:38 PM CDT) Hemoglobin A1C 8.4 (H) 4.3 - 6.1 % [facility] Specimen Blood Performing Organization Address City/[facility] one Number [place] [address] [facility] * Hepatic function panel (12/13/2018 3:38 PM CDT) Protein, Total 6.9 6.0 - 8.3 gm/dL [facility] Albumin 3.9 3.5 - 5.0 g/dL [facility] Total Bilirubin 0.5 0.2 - 1.2 mg/dL [facility] Bilirubin, Direct 0.2 0.1 - 0.5 mg/dL [facility] Alkaline Phosphatase 80 40 - 150 U/L [facility] AST 18 5 - 34 U/L [facility] ALT 15 6 - 55 U/L [facility] Specimen Blood Performing Organization Address [facility] Ph one Number [address] [facility] * Lipid panel (12/13/2018 3:38 PM CDT) Triglycerides 101 mg/dL [facility] Cholesterol 151 mg/dL [facility] HDL 38 mg/dL [facility] LDL Calculated 93 mg/dL [facility] Specimen Blood Narrative Performed At Triglyceride Reference Range: [facility] Low Risk <150 [facility] [id number] High Risk 200-499 Very High Risk>=500 Cholesterol Reference Range: Low Risk <200 [id number] High Risk>240 HDL Cholesterol Reference Range: Low Risk >=60 High Risk <40 LDL Cholesterol Reference Range: Optimal<100 Near [id number] Very High >=190 Performing Organization Address City/[facility] Ph one Number [address] [facility] after 11/16/2018 Insurance Payer Benefit Subscriber ID Type Phone Address Plan / Group MEDICARE MEDICARE A xxxxxxxxxxx Medicare B [id number] Advance Directives For more information, please contact: [address] [address] Date Inactivated Comments Code Status Date Activated 12/15/2018 12:01 AM Full Code 12/13/2018 10:07 AM This code status was determined by: Patient
--- OUTSIDE RECORDS SUMMARY | 2019-11-17 21:56 | XMS REPORT | Continuity of Care Document ---
Author Author [facility] t Organization Formerly [facility] Address [address] [place] [address] [address] [place] [address] Phone Unavailable Care Team Providers Care Aquatics Lifeguard Name Role Phone Chao BECKMAN PCP Mary Ann LYNNE ALEISHA Attphys Unavailable ISACC JAVED Attphys Unavailable JEANNIE QUINONES MD Attphys Unavailable EMMA, Keeley MERCER Attphys Unavailable NEIL PEREZ Attphys Unavailable Zaina Forman RN Attphys Lisa Lee MD Sharon Attphys [phone] Rigo Mott MD Attphys [phone] LISA LEE SHARON Attphys Unavailable TAVIA GARCIA Attphys Unavailable ISACC JAVED Admphys Unavailable DAHU, Keeley JIRIES Admphys Unavailable MALLY MURALINHILL SHARON Admphys Unavailable Payers Payer Name Policy Type Policy Number Effective Date Expiration Date Keeley cagle Medicare A & B [id number] 2016 00:00:00 [facility] Cdc Review Covid19 [id number] [facility] MEDICAREMEDICARE A BxxxxxxxxxxxMedicare xxxxxxxxxxx [facility] Problems Condition Name Condition Details Condition Category Status Onset Date Resolution Date Last Treatment Date Treating Clinician Comments Source Gastroparesis Gastroparesis Disease Active 2018-12-13 00:00:00 [facility] Diabetic gastroparesis associated with type 2 diabetes mellitus Diabetic gastroparesis associated with type 2 diabetes mellitus Problem Active [facility] Upper gastrointestinal hemorrhage Upper GI bleed Problem Active [facility] Dehydration Dehydration Problem Active [facility] Nausea and vomiting Nausea & vomiting Problem Active [facility] Hematemesis Problem Active [facility] Acute epigastric pain Problem Active [facility] Abdominal pain Problem Active [facility] Vomiting Problem Active [facility] Tachycardia Problem Active [facility] Hyperglycemia Problem Active [facility] Colitis Problem Active [facility] Intractable vomiting with nausea Problem Active [facility] Abnormal kidney function Problem Active [facility] Hypertensive crisis Problem Active [facility] Allergies, Adverse Reactions, Alerts Allergy Name Allergy Type Status Severity Reaction(s) Onset Date Inacti ve Date Treating Clinician Comments Source No Known Allergies DA Active U 2019-02-13 00:00:00 [facility] No Known Allergies DA Active U 2019-02-06 00:00:00 [facility] No Known Allergies DA Active U 2018-05-11 00:00:00 [facility] No Known Allergies DA Active U 2018-02-26 00:00:00 [facility] No Known Allergies DA Active U 2018-01-14 [facility] No Known Allergies DA Active U 2017-12-15 00:[facility] No Known Allergies DA Active U 2017-10-09 00:00:[facility] Family History Family Member Diagnosis Comments Start Date Stop Date Source Maternal uncle Diabetes [facility] Natural mother Diabetes [facility] Social History Social Habit Start Date Stop Date Quantity Comments Source History SDOH Alcohol Std Drinks [facility] History SDOH Alcohol Binge [facility] Sex Assigned At [facility] History SDOH Alcohol Frequency 2018-12-13 00:00:00 2018-12-13 00:00:0 0 1 [facility] Smoking Status Start Date Stop Date Source Never smoker [facility] Medications Ordered Medication Name Filled Medication Name Start Date Stop Da te Current Medication? Ordering Clinician Indication Dosage Frequency Signature (SIG) Comments Components Source Promethazine Hcl Promethazine Hcl 2019-11-12 00:25:00 Yes 25 Every 6 Hours as needed for Nausea And Vomiting [facility] Acetaminophen With Codeine (Tylenol With Codeine #3 Ta blet) 1 Each TABLET Acetaminophen With Codeine (Tylenol With Codeine #3 Tablet) 1 Each TABLET 2019-10-28 10:59:00 Yes 300 Every 12 Jessenia rs as needed for Abdominal Pain [facility] Promethazine Hcl Promethazine Hcl 2019-09-21 09:25:00 Yes 25 Every 6 Hours for Vomiting [facility] Losartan Potassium Losartan Potassium 2019-08-25 13:46:00 2019-08-30 5 00:00:00 No 50 Daily [facility] Acetaminophen With Codeine (Tylenol With Codeine #3 Ta blet) 1 Each TABLET Acetaminophen With Codeine (Tylenol With Codeine #3 Tablet) 1 Each TABLET 2019-07-10 18:44:00 2019-09-22 00:00:00 No 300 Every 6 Hours as needed for Pain [facility] Promethazine Hcl Promethazine Hcl 2019-07-06 13:42:00 2019-07-10 00:00 :00 No 25 Three Times A Day [facility] promethazine (PHENERGAN) 12.5 MG tablet 00:00:00 2018-12-21 23:59:00 No 12.5mg Take 1 tablet (12.5 mg total) by mouth every 6 (six) hours as needed for Nausea for up to 7 days. [facility] insulin glargine (LANTUS) 100 unit/mL injection 2018-12-13 1 7:58:14 Yes type 2 diabetes mellitus 25U QD Inject 25 Units subcutaneously nightly Use as directed . [facility] dicyclomine (BENTYL) 10 MG capsule 2018-12-13 17:58:14 Y es 10mg Q.[id number] Take 10 mg by mouth 3 (three) times daily. 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 [facility] pantoprazole (PROTONIX) 20 MG tablet 2018-12-13 17:58:14 Ye s 20mg Take 20 mg by mouth 2 (two) times daily before meals. [facility] traMADol (ULTRAM) 50 mg tablet 2018-12-13 17:58:14 Yes 50mg Q.[id number] Take 50 mg by mouth 3 (three) times daily. [facility] insulin aspart U-100 (NOVOLOG) 100 unit/mL injection 2 17:58:13 Yes type 2 diabetes mellitus 5U Inj ect 5 Units subcutaneously 3 (three) times daily before meals. [facility] Ondansetron (Ondansetron Odt) 8 Mg TAB.RAPDIS Ondanset calli (Ondansetron Odt) 8 Mg TAB.RAPDIS 2018-12-12 19:01:00 2019-07-10 00:00:00 No 4 Three Times A Day as needed for Nausea, Vomiting [facility] Promethazine Hcl (Phenergan Supp*) 25 Mg SUPP Prometha zine Hcl (Phenergan Supp*) 25 Mg SUPP 2018-12-12 19:01:00 2019-07-10 00:00:00 No 25 Three Times A Day as needed for Nausea, Vomiting [facility] Metoclopramide Hcl (Reglan) 10 Mg TABLET Metoclopramid e Hcl (Reglan) 10 Mg TABLET 2018-11-25 06:19:00 Yes 1 Before Meals And At Bedtime [facility] Pantoprazole Sodium (Protonix) 40 Mg TABLET. Pantopr azole Sodium (Protonix) 40 Mg TABLET. 2018-11-25 06:19:00 Yes 40 Daily [facility] Amlodipine Besylate (Norvasc) 10 Mg TAB Amlodipine Besylate (Norvasc) 10 Mg TAB 2018-11-25 06:19:00 2019-07-09 00:00:00 No 10 Daily [facility] Insulin Aspart (Novolog) 100 Units/1 Ml INJ Insulin As part (Novolog) 100 Units/1 Ml INJ Yes 8 Three Times Daily With Meals [facility] Insulin Glargine (Lantus 3ML Pen) 100 Units/1 Ml INJ I nsulin Glargine (Lantus 3ML Pen) 100 Units/1 Ml INJ Yes 15 Bedtime [facility] Lisinopril Lisinopril Yes 5 Daily [facility] Ondansetron Hcl Ondansetron Hcl Yes 4 Every 6 Hours as needed for Nausea [facility] Dicyclomine Hcl Dicyclomine Hcl 2019-07-10 00:00:00 No 10 Three Times A Day [facility] Promethazine Hcl Promethazine Hcl 2019-07-10 00:00:00 No 25 Three Times A Day as needed for Nausea [facility] Tramadol Hcl (Ultram 50MG*) 50 Mg TAB Tramadol Hcl (Ultram 50MG* ) 50 Mg TAB 2019-07-10 00:00:00 No 1 Three Times A Day as needed for Mild Pain (1-3) Or Fever>100.8 [facility] Glimepiride Glimepiride 2019-07-09 00:00:00 No 2 D aily [facility] Metoclopramide Hcl (Reglan) 10 Mg TABLET Metoclopramid e Hcl (Reglan) 10 Mg TABLET 2018-11-25 00:00:00 No 1 Bedtime [facility] Metoclopramide Hcl Metoclopramide Hcl 2018-11-25 00:00:00 No 10 Three Times A Day [facility] Metoclopramide Hcl (Reglan) 10 Mg TABLET Metoclopramid e Hcl (Reglan) 10 Mg TABLET 2018-11-25 00:00:00 No 1 Three Times A Day [facility] Pantoprazole Sodium (Protonix) 40 Mg TABLET. Pantopr azole Sodium (Protonix) 40 Mg TABLET. 2018-11-25 00:00:00 No 40 Daily [facility] Pantoprazole Sodium (Protonix) 40 Mg TABLET. Pantopr azole Sodium (Protonix) 40 Mg TABLET. 2018-11-25 00:00:00 No 40 Twice A Day [facility] Vital Signs Vital Name Observation Time Observation Value Comments Source Body Temperature 2019-11-12 00:41:00 97.5 [degF] [facility] Weight 2019-11-11 22:05:00 183 [lb_av] [facility] BMI (Body Mass Index) 2019-11-11 22:05:00 24.1 kg/m2 [facility] Weight 2019-11-07 16:35:00 183 [lb_av] [facility] BMI (Body Mass Index) 2019-11-07 16:35:00 24.1 kg/m2 [facility] Body Temperature 2019-10-28 16:21:00 98.1 [degF] [facility] Weight 2019-10-27 17:29:00 184 [lb_av] [facility] BMI (Body Mass Index) 2019-10-27 17:29:00 24.3 kg/m2 [facility] Body Temperature 2019-10-06 11:55:00 98.0 [degF] [facility] BMI (Body Mass Index) 2019-10-06 00:13:00 25.7 kg/m2 [facility] Weight 2019-10-03 16:16:00 195 [lb_av] [facility] Weight 2019-09-30 07:59:00 195 [lb_av] [facility] BMI (Body Mass Index) 2019-09-30 07:59:00 25.7 kg/m2 [facility] Body Temperature 2019-09-29 23:05:00 99.3 [degF] [facility] Weight 2019-09-29 20:31:00 195 [lb_av] [facility] BMI (Body Mass Index) 2019-09-29 20:31:00 25.7 kg/m2 [facility] Body Temperature 2019-09-24 07:56:00 97.9 [degF] [facility] BMI (Body Mass Index) 2019-09-24 00:04:00 25.7 kg/m2 [facility] Weight 2019-09-22 07:12:00 195 [lb_av] [facility] Weight 2019-09-21 07:05:00 193 [lb_av] [facility] BMI (Body Mass Index) 2019-09-21 07:05:00 25.5 kg/m2 [facility] Body Temperature 2019-09-20 23:35:00 97.7 [degF] [facility] Weight 2019-09-20 21:36:00 193 [lb_av] [facility] BMI (Body Mass Index) 2019-09-20 21:36:00 25.5 kg/m2 [facility] Weight 2019-08-23 17:53:00 195 [lb_av] [facility] BMI (Body Mass Index) 2019-08-23 17:53:00 25.7 kg/m2 [facility] Body Temperature 2019-07-24 12:23:00 97.6 [degF] [facility] Systolic blood pressure 2018-12-14 15:44:00 160 mm[Hg] [facility] Diastolic blood pressure 2018-12-14 15:44:00 82 mm[Hg] [facility] Heart rate 2018-12-14 15:44:00 69 /min [facility] Body temperature 2018-12-14 15:44:00 37.44 Sarai [facility] Respiratory rate 2018-12-14 15:44:00 18 /min [facility] Oxygen saturation in Arterial blood by Pulse oximetry 12-14 15:44:00 97 [facility] Measured 2018-12-13 10:20:00 86.274 kg [facility] Procedures Procedure Date / Time Performed Performing Clinician Julianne irvin EXCISION OF DUODENUM, ENDO, DIAGN 2019-10-05 00:00:00 [facility] EXCISION OF STOMACH, PYLORUS, ENDO, DIAGN 2019-10-05 00:00:00 [facility] Computed tomography of abdomen and pelvis with contrast 00:00:00 [facility] Computed tomography of abdomen and pelvis with contrast 00:00:00 [facility] EMERGENCY DEPT VISIT 2019-09-21 00:00:00 [facility] EMERGENCY DEPT VISIT 2019-09-20 00:00:00 [facility] REPORT OF PROCEDURE - ENDOSCOPY SCAN 2018-12-16 09:02:06 Pro vider, Default Scanning [facility] POCT-GLUCOSE METER 2018-12-14 17:15:00 Shant Mott [facility] POCT-GLUCOSE METER 2018-12-14 12:04:00 Shant Mott [facility] ECG 12-LEAD 2018-12-14 10:08:16 Shant Mott [facility] POCT-GLUCOSE METER 2018-12-14 07:43:00 Shant Mott [facility] BASIC METABOLIC PANEL (7) 2018-12-14 04:58:00 Sharon Lee [facility] PHOSPHORUS 2018-12-14 04:58:00 GadicherLazarus sepulvedaal Muralinath [facility] MAGNESIUM 2018-12-14 04:58:00 Gadicherla Sharon Muralinath [facility] CBC W/PLT COUNT & AUTO DIFFERENTIAL 2018-12-14 04:58:00 Jared cherLazarus sepulvedaal Muralinath [facility] POCT-GLUCOSE METER 2018-12-13 21:09:00 GadicherlaLazarusal Muralin ath [facility] POCT-GLUCOSE METER 2018-12-13 15:54:00 GadicherlaLazarusal Muralin ath [facility] BASIC METABOLIC PANEL (7) 2018-12-13 15:38:00 GadicherlaLazrausal Muralinath [facility] HEPATIC FUNCTION PANEL 2018-12-13 15:38:00 GadstewerSharon sepulvedanath [facility] HEMOGLOBIN A1C 2018-12-13 15:38:00 GadicherlaLazarusal Muralinath [facility] LIPID PANEL 2018-12-13 15:38:00 GadicherlaLazarusal Muralinath [facility] CBC W/PLT COUNT & AUTO DIFFERENTIAL 2018-12-13 15:38:00 Jared cherLazarus sepulvedaal Muralinath [facility] POCT-GLUCOSE METER 2018-12-13 12:25:00 GadstewerSharon sepulveda [place] [facility] Plan of Care Planned Activity Planned Date Details Comments Source Instructions Nausea and Vomiting - Oncology [facility] Encounters Start Date/Time End Date/Time Encounter Type Admission Type Attendi [facility] Care Department Encounter ID Source 2019-11-11 22:15:00 2019-11-12 00:38:00 Departed Emergency Room 1 ALEISHA LYNNE [facility] [id number] [facility] 2019-11-07 16:24:00 2019-11-07 19:30:00 Departed Emergency Room [facility] [id number] [facility] 2019-10-27 14:43:00 2019-10-28 17:55:00 Discharged Inpatient [facility] [id number] [facility] 2019-10-04 00:35:00 2019-10-06 12:14:00 Discharged Inpatient 1 ISACC JAVED [facility] [id number] [facility] [place] 2019-09-30 08:15:00 2019-09-30 14:10:00 Departed Emergency Room 1 JEANNIE QUINONES MD [facility] [id number] [facility] 2019-09-29 20:40:00 2019-09-29 23:05:00 Departed Emergency Room [facility] [id number] [facility] [place] 2019-09-22 09:41:00 2019-09-24 08:22:00 Discharged Inpatient 1 RUSLAN CARTER [facility] [id number] [facility] 2019-09-21 07:02:00 2019-09-21 11:05:00 Departed Emergency Room [facility] [id number] [facility]-20 20:47:00 2019-09-20 23:35:00 Departed Emergency Room [facility] [id number] [facility] [place] 2019-08-24 08:10:00 2019-08-25 14:00:00 Discharged Inpatient (obs) [facility] [id number] [facility] 2019-08-23 17:24:00 2019-08-23 19:35:00 Departed Emergency Room [facility] [id number] [facility] [place] 2019-07-23 06:38:00 2019-07-24 13:59:00 Discharged Inpatient 1 NEIL PEREZ [facility] [id number] [facility] [place] 2019-07-09 15:58:00 2019-07-10 18:57:00 Discharged Inpatient (obs) [facility] [id number] [facility] [place] 2019-07-06 11:09:00 2019-07-06 14:11:00 Departed Emergency Room [facility] [id number] [facility] 2019-05-31 00:00:00 2019-05-31 00:00:00 Transition of Care Zaina Forman [id number] 2018-12-13 06:33:00 2018-12-13 08:35:00 Departed Emergency Room [facility] [id number] [facility] 2018-12-12 17:07:00 2018-12-12 19:35:00 Departed Emergency Room [facility] [id number] [facility] 2018-11-22 18:24:00 2018-11-25 16:05:00 Discharged Inpatient 1 ISACC JAVED [facility] [id number] [facility] 2018-09-28 12:15:00 2018-09-28 16:32:00 Departed Emergency Room [facility] [id number] [facility] 2018-09-20 08:55:00 2018-09-20 08:55:00 Registered Clinic 3 TAVIA GARCIA [facility] [id number] [facility] 2018-08-10 13:35:00 2018-08-10 17:00:00 Departed Emergency Room [facility] [id number] [facility] 2018-07-05 11:53:00 2018-07-07 08:40:00 Discharged Inpatient [facility] [id number] [facility] 2018-06-23 07:38:00 2018-06-23 07:38:00 Registered Clinic 3 TAVIA GARCIA [facility] [id number] [facility] Results Test Description Test Time Test Comments Results Result Comments Source ABDOMEN COMPLETE - HOPD 2019-11-12 00:00:00 [facility] [address] [address] Patient Name: BREE LINDSAY MR #: [id number] : 1975 Age/Sex: 43/M Req #: [id number] Adm Physician: Ordered by: ALEISHA LYNNE MD Report #: [id number] Location: [facility] Room/Bed: Procedure: [id number] HOPD/ABDOMEN COMPLETE - HOPD Exam Date: 11/11/19 Exam Time: 2322 REPORT STATUS: Signed EXAM: Abdomen and chest, 5 radiographs INDICATION: persistent vomiting [id number] COMPARISON: CT dated 10/04/2019 FINDINGS: Lungs are clear. No focal consolidation. No pleural effusion or pneumothorax. Nonobstructive bowel gas p attern. No signs of pneumoperitoneum. Moderate colonic stool burden. No calcifications overlying renal shadows. Right upper quadrant surgical clips, likely related to cholecystectomy. Pelvic phleboliths. No acute osseous abnormality. IMPRESSION: Nonobstructive bowel gas pattern. No acute thoracic abnormality. Signed by: Dr. Estefany Martinez MD on 11/12/2019 12:02 AM Dictated By: ESTEFANY MARTINEZ MD 0002 Transcribed By: PAULA on 11/12/19 0002 COPY TO: ALEISHA LYNNE MD Capillary blood glucose measurement by glucometer (mas s/volume) 2019-10-28 15:46:00 Test Item Bedside Glucose (test code = 58160-2) 62 70-120 Meter ID: [id number]illary blood glucose measurement by glucometer (mass/volume)2019-10-28 15:46:00* Test Item Value Reference Range Interpretation Comments Bedside Glucose (test code = 32539-8) 62 70-120 Meter ID: [id number] SpringsCapillary blood glucose measurement by glucometer (mass/volume)2019-10-28 15:46:00* Test Item Value Reference Range Interpretation Comments Bedside Glucose (test code = 46925-2) 62 70-120 Meter ID: [id number] or plasma sodium measurement (moles/volume)2019-10-28 04:50:00* Test Item Value Reference Range Interpretation Comments Sodium Level (test code = 2951-2) 141 136-145 [facility] or plasma potassium measurement (moles/volume)2019-10-28 04:50:00* Test Item Value Reference Range Interpretation Comments Potassium Level (test code = 2823-3) 3.7 3.5-5.1 [facility] or plasma chloride measurement (moles/volume)2019-10-28 04:50:00* Test Item Value Reference Range Interpretation Comments Chloride Level (test code = 2075-0) 106 98-107 [facility] or plasma carbon dioxide, total measurement (moles/volume)2019-10-28 04:50:00* Test Item Value Reference Range Interpretation Comments Carbon Dioxide Level (test code = 2028-9) 24 22-29 [facility] or plasma anion [id number] 04:50:00* Test Item Value Reference Range Interpretation Comments Anion Gap (test code = 78760-7) 14.7 8-16 [facility] or plasma urea nitrogen measurement (mass/volume)2019-10-28 04:50:00* Test Item Value Reference Range Interpretation Comments Blood Urea Nitrogen (test code = 3094-0) 17 7-26 [facility] or plasma creatinine measurement (mass/volume)2019-10-28 04:50:00* Test Item Value Reference Range Interpretation Comments Creatinine (test code = 2160-0) 1.15 0.72-1.25 [facility] or plasma urea nitrogen/creatinine mass [id number] 04:50:00* Test Item Value Reference Range Interpretation Comments BUN/Creatinine Ratio (test code = 3097-3) 15 6-25 [facility]ated glomerular filtration rate (GFR) [id number] 04:50:00* Test Item Value Reference Range Interpretation Comments Estimat Glomerular Filtration Rate (test code = 998456385) > 60 >60 Ranges were taken from the National Kidney Disease Education Program and the [facility] literature.Reference ranges:60 or greater: [id number] ( for 3 consecutive months): Chronic kidney disease 15 or less: Kidney failureCHRISTUS [facility] – Sulphur SpringsGlucose [id number] 04:50:00* Test Item Value Reference Range Interpretation Comments Glucose Level (test code = KNR6674) 246 74-118 [facility] or plasma calcium measurement (mass/volume)2019-10-28 04:50:00* Test Item Value Reference Range Interpretation Comments Calcium Level (test code = 29319-3) 8.4 8.4-10.2 [facility] SpringsFluoroscopic procedure less than one hour ilqzopui4440-45-25 04:50:00* Test Item Value Reference Range Interpretation Comments Hemoglobin A1c Percent (test code = Hemoglobin A1c Percent) 9.9 4.0-7.0 [facility] lipase measurement (enzymatic activity/volume)2019-10-28 04:50:00* Test Item Value Reference Range Interpretation Comments Lipase (test code = 3040-3) < 4 8-78 [facility] sodium measurement (moles/volume)2019-10-28 04:50:00* Test Item Value Reference Range Interpretation Comments Sodium Level (test code = 2951-2) 141 136-145 [facility] potassium measurement (moles/volume)2019-10-28 04:50:00* Test Item Value Reference Range Interpretation Comments Potassium Level (test code = 2823-3) 3.7 3.5-5.1 [facility] chloride measurement (moles/volume)2019-10-28 04:50:00* Test Item Value Reference Range Interpretation Comments Chloride Level (test code = 2075-0) 106 98-107 [facility] plasma carbon dioxide, total measurement (moles/volume)2019-10-28 04:50:00* Test Item Value Reference Range Interpretation Comments Carbon Dioxide Level (test code = 2028-9) 24 22-29 [facility] plasma anion yhg2888-02-74 04:50:00* Test Item Value Reference Range Interpretation Comments Anion Gap (test code = 82923-4) 14.7 8-16 [facility] plasma urea nitrogen measurement (mass/volume)2019-10-28 04:50:00* Test Item Value Reference Range Interpretation Comments Blood Urea Nitrogen (test code = 3094-0) 17 7-26 [facility] creatinine measurement (mass/volume)2019-10-28 04:50:00* Test Item Value Reference Range Interpretation Comments Creatinine (test code = 2160-0) 1.15 0.72-1.25 [facility] plasma urea nitrogen/creatinine mass ijeyk8296-72-56 04:50:00* Test Item Value Reference Range Interpretation Comments BUN/Creatinine Ratio (test code = 3097-3) 15 6-25 [facility] SpringsEstimated glomerular filtration rate (GFR) aaxfhvadequoy1497-40-51 04:50:00* Test Item Value Reference Range Interpretation Comments Estimat Glomerular Filtration Rate (test code = 001586886) > 60 >60 Ranges were taken from the National Kidney Disease Education Program and the [facility] literature.Reference ranges:60 or greater: Cueqkd62-70 ( for 3 consecutive months): Chronic kidney disease 15 or less: Kidney failureCHRIST[facility] SpringsGlucose dplpfkigkug4599-29-75 04:50:00* Test Item Value Reference Range Interpretation Comments Glucose Level (test code = DQD9176) 246 74-118 [facility] plasma calcium measurement (mass/volume)2019-10-28 04:50:00* Test Item Value Reference Range Interpretation Comments Calcium Level (test code = 38619-2) 8.4 8.4-10.2 [facility] SpringsFluoroscopic procedure less than one hour fcjwcsgm6056-27-82 04:50:00* Test Item Value Reference Range Interpretation Comments Hemoglobin A1c Percent (test code = Hemoglobin A1c Percent) 9.9 4.0-7.0 [facility] lipase measurement (enzymatic activity/volume)2019-10-28 04:50:00* Test Item Value Reference Range Interpretation Comments Lipase (test code = 3040-3) < 4 8-78 [facility] sodium measurement (moles/volume)2019-10-28 04:50:00* Test Item Value Reference Range Interpretation Comments Sodium Level (test code = 2951-2) 141 136-145 [facility] potassium measurement (moles/volume)2019-10-28 04:50:00* Test Item Value Reference Range Interpretation Comments Potassium Level (test code = 2823-3) 3.7 3.5-5.1 [facility] chloride measurement (moles/volume)2019-10-28 04:50:00* Test Item Value Reference Range Interpretation Comments Chloride Level (test code = 2075-0) 106 98-107 [facility] plasma carbon dioxide, total measurement (moles/volume)2019-10-28 04:50:00* Test Item Value Reference Range Interpretation Comments Carbon Dioxide Level (test code = 2028-9) 24 22-29 [facility] plasma anion zse2245-41-26 04:50:00* Test Item Value Reference Range Interpretation Comments Anion Gap (test code = 77029-4) 14.7 8-16 [facility] plasma urea nitrogen measurement (mass/volume)2019-10-28 04:50:00* Test Item Value Reference Range Interpretation Comments Blood Urea Nitrogen (test code = 3094-0) 17 7-26 [facility] creatinine measurement (mass/volume)2019-10-28 04:50:00* Test Item Value Reference Range Interpretation Comments Creatinine (test code = 2160-0) 1.15 0.72-1.25 [facility] plasma urea nitrogen/creatinine mass wsziy5290-71-52 04:50:00* Test Item Value Reference Range Interpretation Comments BUN/Creatinine Ratio (test code = 3097-3) 15 6-25 [facility] SpringsEstimated glomerular filtration rate (GFR) nuunaapyhdedp2765-13-29 04:50:00* Test Item Value Reference Range Interpretation Comments Estimat Glomerular Filtration Rate (test code = 109382225) > 60 >60 Ranges were taken from the National Kidney Disease Education Program and the [facility] literature.Reference ranges:60 or greater: Yianph98-34 ( for 3 consecutive months): Chronic kidney disease 15 or less: Kidney failureCHRISTUS [facility] SpringsGlucose rlxkkgsierl6226-29-70 04:50:00* Test Item Value Reference Range Interpretation Comments Glucose Level (test code = VKH4231) 246 74-118 [facility] calcium measurement (mass/volume)2019-10-28 04:50:00* Test Item Value Reference Range Interpretation Comments Calcium Level (test code = 15197-5) 8.4 8.4-10.2 [facility] SpringsFluoroscopic procedure less than one hour alkmsobr9081-28-37 04:50:00* Test Item Value Reference Range Interpretation Comments Hemoglobin A1c Percent (test code = Hemoglobin A1c Percent) 9.9 4.0-7.0 [facility] lipase measurement (enzymatic activity/volume)2019-10-28 04:50:00* Test Item Value Reference Range Interpretation Comments Lipase (test code = 3040-3) < 4 8-78 [facility] SpringsFluoroscopic procedure less than one hour ywfpkjhq0926-32-86 15:40:00* Test Item Value Reference Range Interpretation Comments Coronavirus (PCR) (test code = Coronavirus (PCR)) NOT DETECTED NOTD ETECTED Hologic Aptima SARS-CoV-2 assay is a nucleic amplification test intended for the qualitative detection of RNA from SARS-CoV-2 from nasopharyngeal ([employer]) specimens . It is used under Emergency [...] for reprat testing oc clinically indicated.Tesing performed by:[facility] [id number] [place] [address] [id number] hart MD, PhD [facility] SpringsFluoroscopic procedure less than one hour xolljyli3544-24-92 15:40:00* Test Item Value Reference Range Interpretation Comments Coronavirus (PCR) (test code = Coronavirus (PCR)) NOT DETECTED NOTD ETECTED Hologic Aptima SARS-CoV-2 assay is a nucleic amplification test intended for the qualitative detection of RNA from SARS-CoV-2 from nasopharyngeal ([employer]) specimens . It is used under Emergency [...] for reprat testing oc clinically indicated.Tesing performed by:[facility] [id number] [place] [address] [id number] hart MD, PhD [facility] SpringsBlood leukocytes automated count (number/volume)2019-10-27 13:50:00* Test Item Value Reference Range Interpretation Comments White Blood Count (test code = 6690-2) 7.16 4.8-10.8 [facility] SpringsBlood erythrocytes automated count (number/volume)2019-10-27 13:50:00* Test Item Value Reference Range Interpretation Comments Red Blood Count (test code = 789-8) 3.97 4.3-5.7 [facility] SpringsBlood hemoglobin measurement (moles/volume)2019-10-27 13:50:00* Test Item Value Reference Range Interpretation Comments Hemoglobin (test code = 30352-1) 11.2 14.0-18.0 [facility] SpringsAutomated blood hematocrit (volume fraction)2019-10-27 13:50:00* Test Item Value Reference Range Interpretation Comments Hematocrit (test code = 4544-3) 35.7 38.2-49.6 [facility] SpringsAutomated erythrocyte mean corpuscular rugghy3989-39-55 13:50:00* Test Item Value Reference Range Interpretation Comments Mean Corpuscular Volume (test code = 787-2) 89.9 81-99 [facility] SpringsAutomated erythrocyte mean corpuscular hemoglobin (mass per erythrocyte)2019-10-27 13:50:00* Test Item Value Reference Range Interpretation Comments Mean Corpuscular Hemoglobin (test code = 785-6) 28.2 28-32 [facility] SpringsAutomated erythrocyte mean corpuscular hemoglobin concentration measurement (mass/volume)2019-10-27 13:50:00* Test Item Value Reference Range Interpretation Comments Mean Corpuscular Hemoglobin Concent (test code = 786-4) 31.4 31-35 [facility] SpringsRDW VrvGt-Xsx5826-26-30 13:50:00* Test Item Value Reference Range Interpretation Comments Red Cell Distribution Width (test code = 84628-0) 13.1 11.7 -14.4 [facility] SpringsAutomated blood platelet count (count/volume)2019-10-27 13:50:00* Test Item Value Reference Range Interpretation Comments Platelet Count (test code = 777-3) 226 140-360 [facility]ed [facility] segmented neutrophil count as percentage of total ukabvjlxlm4882-46-25 13:50:00* Test Item Value Reference Range Interpretation Comments Neutrophils (%) (Auto) (test code = 26834-0) 85.1 38.7-80.0 [facility] SpringsAutomated blood lymphocyte count as percentage ot total enatlmpnoc3086-21-05 13:50:00* Test Item Value Reference Range Interpretation Comments Lymphocytes (%) (Auto) (test code = 736-9) 10.3 18.0-39.1 [facility] SpringsAutomated blood monocyte count as percentage of total fdvreavmri0765-73-11 13:50:00* Test Item Value Reference Range Interpretation Comments Monocytes (%) (Auto) (test code = 5905-5) 3.5 4.4-11.3 [facility] SpringsAutomated blood eosinophil count as percentage of total nzadrawbmn1310-54-78 13:50:00* Test Item Value Reference Range Interpretation Comments Eosinophils (%) (Auto) (test code = 713-8) 0.1 0.0-6.0 [facility] SpringsAutomated blood basophil count as percentage of total lujoaayxnx5086-84-27 13:50:00* Test Item Value Reference Range Interpretation Comments Basophils (%) (Auto) (test code = 706-2) 0.7 0.0-1.0 [facility] SpringsFluoroscopic procedure less than one hour gezpxxqj5648-35-78 13:50:00* Test Item Value Reference Range Interpretation Comments IM GRANULOCYTES % (test code = IM GRANULOCYTES %) 0.3 0.0- 1.0 [facility] SpringsAutomated blood neutrophil count 2019-10-27 13:50:00* Test Item Value Reference Range Interpretation Comments Neutrophils # (Auto) (test code = 751-8) 6.1 2.1-6.9 [facility] SpringsBlood lymphocytes count (number/volume) 2019-10-27 13:50:00* Test Item Value Reference Range Interpretation Comments Lymphocytes # (Auto) (test code = 28878-6) 0.7 1.0-3.2 [facility] SpringsBlood monocytes automated count (number/volume)2019-10-27 13:50:00* Test Item Value Reference Range Interpretation Comments Monocytes # (Auto) (test code = 742-7) 0.3 0.2-0.8 [facility] SpringsAutomated blood eosinophil count 2019-10-27 13:50:00* Test Item Value Reference Range Interpretation Comments Eosinophils # (Auto) (test code = 711-2) 0.0 0.0-0.4 [facility] SpringsAutomated blood basophil count (count/volume)2019-10-27 13:50:00* Test Item Value Reference Range Interpretation Comments Basophils # (Auto) (test code = 704-7) 0.1 0.0-0.1 [facility] SpringsFluoroscopic procedure less than one hour rhmsnawm7491-45-46 13:50:00* Test Item Value Reference Range Interpretation Comments Absolute Immature Granulocyte (auto (zeenat t code = Absolute Immature Granulocyte (auto) 0.02 0-0.1 [facility] leukocytes automated count (number/volume)2019-10-27 13:50:00* Test Item Value Reference Range Interpretation Comments White Blood Count (test code = 6690-2) 7.16 4.8-10.8 [facility] erythrocytes automated count (number/volume)2019-10-27 13:50:00* Test Item Value Reference Range Interpretation Comments Red Blood Count (test code = 789-8) 3.97 4.3-5.7 [facility] (moles/volume)2019-10-27 13:50:00* Test Item Value Reference Range Interpretation Comments Hemoglobin (test code = 68249-5) 11.2 14.0-18.0 [facility] SpringsAutformerly [facility] hospitaled blood hematocrit (volume fraction)2019-10-27 13:50:00* Test Item Value Reference Range Interpretation Comments Hematocrit (test code = 4544-3) 35.7 38.2-49.6 [facility] SpringsAutomated erythrocyte mean corpuscular wadzwm2045-50-60 13:50:00* Test Item Value Reference Range Interpretation Comments Mean Corpuscular Volume (test code = 787-2) 89.9 81-99 [facility] SpringsAutomated erythrocyte mean corpuscular hemoglobin (mass per erythrocyte)2019-10-27 13:50:00* Test Item Value Reference Range Interpretation Comments Mean Corpuscular Hemoglobin (test code = 785-6) 28.2 28-32 [facility] SpringsAutomated erythrocyte mean corpuscular hemoglobin concentration measurement (mass/volume)2019-10-27 13:50:00* Test Item Value Reference Range Interpretation Comments Mean Corpuscular Hemoglobin Concent (test code = 786-4) 31.4 31-35 [facility] SpringsRDW MqgLi-Bjg8909-81-30 13:50:00* Test Item Value Reference Range Interpretation Comments Red Cell Distribution Width (test code = 02589-4) 13.1 11.7 -14.4 [facility] SpringsAutomated blood platelet count (count/volume)2019-10-27 13:50:00* Test Item Value Reference Range Interpretation Comments Platelet Count (test code = 777-3) 226 140-360 [facility] SpringsAutomated blood segmented neutrophil count as percentage of total aqexoqelkx3772-22-57 13:50:00* Test Item Value Reference Range Interpretation Comments Neutrophils (%) (Auto) (test code = 12067-0) 85.1 38.7-80.0 [facility] SpringsAutomated blood lymphocyte count as percentage ot total qpqvjarkfc0547-69-70 13:50:00* Test Item Value Reference Range Interpretation Comments Lymphocytes (%) (Auto) (test code = 736-9) 10.3 18.0-39.1 [facility] SpringsAutomated blood monocyte count as percentage of total gjiurqsymy9093-89-83 13:50:00* Test Item Value Reference Range Interpretation Comments Monocytes (%) (Auto) (test code = 5905-5) 3.5 4.4-11.3 [facility] SpringsAutomated blood eosinophil count as percentage of total fmlvwpahaj0136-20-07 13:50:00* Test Item Value Reference Range Interpretation Comments Eosinophils (%) (Auto) (test code = 713-8) 0.1 0.0-6.0 [facility] SpringsAutomated blood basophil count as percentage of total rewytmyqin0948-85-57 13:50:00* Test Item Value Reference Range Interpretation Comments Basophils (%) (Auto) (test code = 706-2) 0.7 0.0-1.0 [facility] SpringsFluoroscopic procedure less than one hour bpccvxqi0289-43-86 13:50:00* Test Item Value Reference Range Interpretation Comments IM GRANULOCYTES % (test code = IM GRANULOCYTES %) 0.3 0.0- 1.0 [facility] SpringsAutomated blood neutrophil count 2019-10-27 13:50:00* Test Item Value Reference Range Interpretation Comments Neutrophils # (Auto) (test code = 751-8) 6.1 2.1-6.9 [facility] SpringsBlph[facility] lymphocytes count (number/volume) 2019-10-27 13:50:00* Test Item Value Reference Range Interpretation Comments Lymphocytes # (Auto) (test code = 45979-3) 0.7 1.0-3.2 [facility] SpringsBlphill[facility] eye institute monocytes automated count (number/volume)2019-10-27 13:50:00* Test Item Value Reference Range Interpretation Comments Monocytes # (Auto) (test code = 742-7) 0.3 0.2-0.8 [facility] SpringsAutomated blood eosinophil count 2019-10-27 13:50:00* Test Item Value Reference Range Interpretation Comments Eosinophils # (Auto) (test code = 711-2) 0.0 0.0-0.4 [facility] SpringsAutomated blood basophil count (count/volume)2019-10-27 13:50:00* Test Item Value Reference Range Interpretation Comments Basophils # (Auto) (test code = 704-7) 0.1 0.0-0.1 [facility] SpringsFluoroscopic procedure less than one hour ncdrecwp0906-75-43 13:50:00* Test Item Value Reference Range Interpretation Comments Absolute Immature Granulocyte (auto (zeenat t code = Absolute Immature Granulocyte (auto) 0.02 0-0.1 [facility] SpringsBlood leukocytes automated count (number/volume)2019-10-27 13:50:00* Test Item Value Reference Range Interpretation Comments White Blood Count (test code = 6690-2) 7.16 4.8-10.8 [facility] SpringsBlph[facility] erythrocytes automated count (number/volume)2019-10-27 13:50:00* Test Item Value Reference Range Interpretation Comments Red Blood Count (test code = 789-8) 3.97 4.3-5.7 [facility] SpringsBlood hemoglobin measurement (moles/volume)2019-10-27 13:50:00* Test Item Value Reference Range Interpretation Comments Hemoglobin (test code = 03340-3) 11.2 14.0-18.0 [facility] SpringsAutomated blood hematocrit (volume fraction)2019-10-27 13:50:00* Test Item Value Reference Range Interpretation Comments Hematocrit (test code = 4544-3) 35.7 38.2-49.6 [facility] SpringsAutomated erythrocyte mean corpuscular lgnafo9737-14-49 13:50:00* Test Item Value Reference Range Interpretation Comments Mean Corpuscular Volume (test code = 787-2) 89.9 81-99 [facility] SpringsAutomated erythrocyte mean corpuscular hemoglobin (mass per erythrocyte)2019-10-27 13:50:00* Test Item Value Reference Range Interpretation Comments Mean Corpuscular Hemoglobin (test code = 785-6) 28.2 28-32 [facility] SpringsAutomated erythrocyte mean corpuscular hemoglobin concentration measurement (mass/volume)2019-10-27 13:50:00* Test Item Value Reference Range Interpretation Comments Mean Corpuscular Hemoglobin Concent (test code = 786-4) 31.4 31-35 [facility] SpringsRDW FgoOw-Vby5220-41-30 13:50:00* Test Item Value Reference Range Interpretation Comments Red Cell Distribution Width (test code = 83518-0) 13.1 11.7 -14.4 [facility] SpringsAutomated blood platelet count (count/volume)2019-10-27 13:50:00* Test Item Value Reference Range Interpretation Comments Platelet Count (test code = 777-3) 226 140-360 [facility] SpringsAutomated blood segmented neutrophil count as percentage of total mdxewfpscj2303-18-82 13:50:00* Test Item Value Reference Range Interpretation Comments Neutrophils (%) (Auto) (test code = 27808-2) 85.1 38.7-80.0 [facility] SpringsAutomated blood lymphocyte count as percentage ot total avewvdcakg4153-48-98 13:50:00* Test Item Value Reference Range Interpretation Comments Lymphocytes (%) (Auto) (test code = 736-9) 10.3 18.0-39.1 [facility] SpringsAutomated blood monocyte count as percentage of total jrouwooalm1220-13-59 13:50:00* Test Item Value Reference Range Interpretation Comments Monocytes (%) (Auto) (test code = 5905-5) 3.5 4.4-11.3 [facility] SpringsAutomated blood eosinophil count as percentage of total abdpijjpto3231-54-37 13:50:00* Test Item Value Reference Range Interpretation Comments Eosinophils (%) (Auto) (test code = 713-8) 0.1 0.0-6.0 [facility] SpringsAutomated blood basophil count as percentage of total ruybsiepzl5408-85-24 13:50:00* Test Item Value Reference Range Interpretation Comments Basophils (%) (Auto) (test code = 706-2) 0.7 0.0-1.0 [facility] SpringsFluoroscopic procedure less than one hour hhyiaoek8686-89-73 13:50:00* Test Item Value Reference Range Interpretation Comments IM GRANULOCYTES % (test code = IM GRANULOCYTES %) 0.3 0.0- 1.0 [facility] SpringsAutomated blood neutrophil count 2019-10-27 13:50:00* Test Item Value Reference Range Interpretation Comments Neutrophils # (Auto) (test code = 751-8) 6.1 2.1-6.9 [facility] SpringsBlood lymphocytes count (number/volume) 2019-10-27 13:50:00* Test Item Value Reference Range Interpretation Comments Lymphocytes # (Auto) (test code = 43542-6) 0.7 1.0-3.2 [facility] monocytes automated count (number/volume)2019-10-27 13:50:00* Test Item Value Reference Range Interpretation Comments Monocytes # (Auto) (test code = 742-7) 0.3 0.2-0.8 [facility] SpringsAutomated blood eosinophil count 2019-10-27 13:50:00* Test Item Value Reference Range Interpretation Comments Eosinophils # (Auto) (test code = 711-2) 0.0 0.0-0.4 [facility] SpringsAutomated blood basophil count (count/volume)2019-10-27 13:50:00* Test Item Value Reference Range Interpretation Comments Basophils # (Auto) (test code = 704-7) 0.1 0.0-0.1 [facility] SpringsFluoroscopic procedure less than one hour aletadgu5901-50-23 13:50:00* Test Item Value Reference Range Interpretation Comments Absolute Immature Granulocyte (auto (zeenat t code = Absolute Immature Granulocyte (auto) 0.02 0-0.1 [facility] leukocytes automated count (number/volume)2019-10-06 05:15:00* Test Item Value Reference Range Interpretation Comments White Blood Count (test code = 6690-2) 7.83 4.8-10.8 [facility] erythrocytes automated count (number/volume)2019-10-06 05:15:00* Test Item Value Reference Range Interpretation Comments Red Blood Count (test code = 789-8) 3.95 4.3-5.7 [facility] (moles/volume)2019-10-06 05:15:00* Test Item Value Reference Range Interpretation Comments Hemoglobin (test code = 25083-9) 11.2 14.0-18.0 [facility] SpringsAutomated blood hematocrit (volume fraction)2019-10-06 05:15:00* Test Item Value Reference Range Interpretation Comments Hematocrit (test code = 4544-3) 35.5 38.2-49.[address] [facility]Autom[facility] eryth[facility] mean corpuscular djiwcy3476-41-21 05:15:00* Test Item Value Reference Range Interpretation Comments Mean Corpuscular Volume (test code = 787-2) 89.9 81-99 [facility] SpringsAutomated erythrocyte mean corpuscular hemoglobin (mass per erythrocyte)2019-10-06 05:15:00* Test Item Value Reference Range Interpretation Comments Mean Corpuscular Hemoglobin (test code = 785-6) 28.4 28-32 [facility] SpringsAutomated erythrocyte mean corpuscular hemoglobin concentration measurement (mass/volume)2019-10-06 05:15:00* Test Item Value Reference Range Interpretation Comments Mean Corpuscular Hemoglobin Concent (test code = 786-4) 31.5 31-35 [facility] SpringsRDW EaoRm-Puk2585-70-09 05:15:00* Test Item Value Reference Range Interpretation Comments Red Cell Distribution Width (test code = 16204-0) 13.4 11.7 -14.4 [facility] SpringsAutomated blood platelet count (count/volume)2019-10-06 05:15:00* Test Item Value Reference Range Interpretation Comments Platelet Count (test code = 777-3) 243 140-360 [facility] neutrophil count as percentage of total mhatlrnpvm5977-44-38 05:15:00* Test Item Value Reference Range Interpretation Comments Neutrophils (%) (Auto) (test code = 23271-4) 57.1 38.7-80.0 [facility] SpringsAutomated blood lymphocyte count as percentage ot total ntzlreluqp3515-29-72 05:15:00* Test Item Value Reference Range Interpretation Comments Lymphocytes (%) (Auto) (test code = 736-9) 31.9 18.0-39.1 [facility] SpringsAutformerly [facility]ed [facility] monocyte count as percentage of total cyrambpsyx4627-85-28 05:15:00* Test Item Value Reference Range Interpretation Comments Monocytes (%) (Auto) (test code = 5905-5) 7.8 4.4-11.3 [facility] SpringsAutomated blood eosinophil count as percentage of total ghihfzkyoh4986-95-71 05:15:00* Test Item Value Reference Range Interpretation Comments Eosinophils (%) (Auto) (test code = 713-8) 2.2 0.0-6.0 [facility] SpringsAutformerly [facility] hospitaled blood basophil count as percentage of total cmzvuegdue0063-43-52 05:15:00* Test Item Value Reference Range Interpretation Comments Basophils (%) (Auto) (test code = 706-2) 0.9 0.0-1.0 [facility] SpringsFluoroscopic procedure less than one hour slwypqcf9820-95-17 05:15:00* Test Item Value Reference Range Interpretation Comments IM GRANULOCYTES % (test code = IM GRANULOCYTES %) 0.1 0.0- 1.0 [facility] SpringsAutformerly [facility] hospitaled blood neutrophil count 2019-10-06 05:15:00* Test Item Value Reference Range Interpretation Comments Neutrophils # (Auto) (test code = 751-8) 4.5 2.1-6.9 [facility] SpringsBlood lymphocytes count (number/volume) 2019-10-06 05:15:00* Test Item Value Reference Range Interpretation Comments Lymphocytes # (Auto) (test code = 52043-7) 2.5 1.0-3.2 [facility] SpringsBlood monocytes automated count (number/volume)2019-10-06 05:15:00* Test Item Value Reference Range Interpretation Comments Monocytes # (Auto) (test code = 742-7) 0.6 0.2-0.8 [facility] SpringsAutomated blood eosinophil count 2019-10-06 05:15:00* Test Item Value Reference Range Interpretation Comments Eosinophils # (Auto) (test code = 711-2) 0.2 0.0-0.4 [facility] SpringsAutomated blood basophil count (count/volume)2019-10-06 05:15:00* Test Item Value Reference Range Interpretation Comments Basophils # (Auto) (test code = 704-7) 0.1 0.0-0.1 [facility] SpringsFluoroscopic procedure less than one hour ihmzaxel4730-72-50 05:15:00* Test Item Value Reference Range Interpretation Comments Absolute Immature Granulocyte (auto (zeenat t code = Absolute Immature Granulocyte (auto) 0.01 0-0.1 [facility] or plasma sodium measurement (moles/volume)2019-10-06 05:15:00* Test Item Value Reference Range Interpretation Comments Sodium Level (test code = 2951-2) 135 136-145 [facility]enerum or plasma potassium measurement (moles/volume)2019-10-06 05:15:00* Test Item Value Reference Range Interpretation Comments Potassium Level (test code = 2823-3) 3.4 3.5-5.1 [facility]enerum or plasma chloride measurement (moles/volume)2019-10-06 05:15:00* Test Item Value Reference Range Interpretation Comments Chloride Level (test code = 2075-0) 99 98-107 [facility]enerum or plasma carbon dioxide, total measurement (moles/volume)2019-10-06 05:15:00* Test Item Value Reference Range Interpretation Comments Carbon Dioxide Level (test code = 2028-9) 29 22-29 [facility]enerum or plasma anion ufh0402-06-57 05:15:00* Test Item Value Reference Range Interpretation Comments Anion Gap (test code = 48884-7) 10.4 8-16 [facility]um or plasma urea nitrogen measurement (mass/volume)2019-10-06 05:15:00* Test Item Value Reference Range Interpretation Comments Blood Urea Nitrogen (test code = 3094-0) < 5 7-26 [facility]um or plasma creatinine measurement (mass/volume)2019-10-06 05:15:00* Test Item Value Reference Range Interpretation Comments Creatinine (test code = 2160-0) 1.04 0.72-1.25 [facility]enerum or plasma urea nitrogen/creatinine mass gbbbj4801-50-56 05:15:00* Test Item Value Reference Range Interpretation Comments BUN/Creatinine Ratio (test code = 3097-3) 5 6-25 [facility] SpringsEstimated glomerular filtration rate (GFR) qdzgcavgdrztr7280-21-00 05:15:00* Test Item Value Reference Range Interpretation Comments Estimat Glomerular Filtration Rate (test code = 751931710) > 60 >60 Ranges were taken from the National Kidney Disease Education Program and the [facility] literature.Reference ranges:60 or greater: [id number] ( for 3 consecutive months): Chronic kidney disease 15 or less: Kidney failureCHRISTUS [facility] – [facility] SpringsGlucose gyxoaqkoskb8398-36-94 05:15:00* Test Item Value Reference Range Interpretation Comments Glucose Level (test code = UKM8036) 202 74-118 [facility]enerum or plasma calcium measurement (mass/volume)2019-10-06 05:15:00* Test Item Value Reference Range Interpretation Comments Calcium Level (test code = 31401-3) 8.7 8.4-10.2 [facility] SpringsCapillary blood glucose measurement by glucometer (mass/volume)2019-10-05 19:48:00* Test Item Value Reference Range Interpretation Comments Bedside Glucose (test code = 00710-7) 233 70-120 Meter ID: [id number] Hermann [facility] Medical CenterUrine color eijndfopysqzv1597-51-94 06:00:00* Test Item Value Reference Range Interpretation Comments Urine Color (test code = 5778-6) YELLOW YELLOW [facility] SpringsUrine xkzmyxh3679-48-75 06:00:00* Test Item Value Reference Range Interpretation Comments Urine Clarity (test code = 31594-0) CLEAR CLEAR [facility] Allenpecific gravity of Urine by Test strip 2019-10-05 06:00:00* Test Item Value Reference Range Interpretation Comments Urine Specific [place] (test code = 5811-5) 1.020 1.010-1.02 5 [facility] SpringsUrine pH measurement by automated test objzo4698-47-76 06:00:00* Test Item Value Reference Range Interpretation Comments Urine pH (test code = 16224-9) 7.5 5-7 [facility] SpringsUrine leukocyte esterase detection by bprzfyiz3184-60-40 06:00:00* Test Item Value Reference Range Interpretation Comments Urine Leukocyte Esterase (test code = 5799-2) NEGATIVE NEGATIVE [facility] SpringsUrine nitrite mxqgymvom5961-23-85 06:00:00* Test Item Value Reference Range Interpretation Comments Urine Nitrite (test code = 71388-8) NEGATIVE NEGATIVE [facility] SpringsUrine protein measurement by test strip (mass/volume)2019-10-05 06:00:00* Test Item Value Reference Range Interpretation Comments Urine Protein (test code = 5804-0) NEGATIVE NEGATIVE [facility] SpringsUrine glucose hncazlfxo5983-46-21 06:00:00* Test Item Value Reference Range Interpretation Comments Urine Glucose (UA) (test code = 2349-9) 2+ NEGATIVE [facility] SpringsUrine ketones detection by automated test easau2738-26-09 06:00:00* Test Item Value Reference Range Interpretation Comments Urine Ketones (test code = 47993-9) TRACE NEGATIVE [facility] SpringsUrine opiates screening iltz7426-75-57 06:00:00* Test Item Value Reference Range Interpretation Comments Urine Opiates Screen (test code = 25208-5) POSITIVE NEGATIVE This test provides only a screen. Positive results should be repeated by a confi rmatory test.[facility] SpringsBarbiturates screen, urine 2019-10-05 06:00:00* Test Item Value Reference Range Interpretation Comments Urine Barbiturates Screen (test code = 827825138) NEGATIVE NEGA TIVE [facility] SpringsUrine phencyclidine detection by screening aswkoh4841-85-26 06:00:00* Test Item Value Reference Range Interpretation Comments Urine Phencyclidine Screen (test code = 38979-6) NEGATIVE NEGAT [place]SON [facility] SpringsUrine amphetamines detection by screen method > 1000 ng/aA1910-36-50 06:00:00* Test Item Value Reference Range Interpretation Comments Urine Amphetamines Screen (test code = 86594-4) NEGATIVE NEGATI VE [facility] SpringsFluoroscopic procedure less than one hour sygyduwz0729-14-23 06:00:00* Test Item Value Reference Range Interpretation Comments Urine Methamphetamines Screen (test code = Urine Metha mphetamines Screen) NEGATIVE NEGATIVE [facility] SpringsUrine benzodiazepines detection by screening fdoabm6856-03-84 06:00:00* Test Item Value Reference Range Interpretation Comments Urine Benzodiazepines Screen (test code = 03447-9) NEGATIVE NEG ATIVE [facility] SpringsUrine cocaine measurement (mass/volume) 2019-10-05 06:00:00* Test Item Value Reference Range Interpretation Comments Urine Cocaine Screen (test code = 3398-5) NEGATIVE NEGATIVE [facility] SpringsUrine cannabinoids detection by screening nlzbqp6637-11-16 06:00:00* Test Item Value Reference Range Interpretation Comments Urine Cannabinoids Screen (test code = 75084-4) POSITIVE NEGATI VE This test provides only a screen. Positive results should be repeated by a confi rmatory test.[facility] SpringsUrine methadone screen 2019-10-05 06:00:00* Test Item Value Reference Range Interpretation Comments Urine Methadone Screen (test code = 68628-6) NEGATIVE NEGATIVE THESE RESULTS ARE FOR MEDICAL TREATMENT ONLYTHIS REPORT CONTAINS UNCONFIR MED SCREENING RESULTS*POSITIVE RESULTS WILL BE CONFIRMED BY REFERENCE LAB UPON R EQUEST CUT-OFFDRUG CLASS CONCENTRATION ng/mLAmphetamines 1000Methamphetamines 1000Cocaine Metabolite 300Opiate 300Phencyc lidine 25Cannabinoid 50Barbiturates 300Benzodiazepine 300Methadone 300[facility] HospitalUrine urobilinogen measurement by test strip (mass/volume)2019-10-05 06:00:00* Test Item Value Reference Range Interpretation Comments Urine Urobilinogen (test code = 32134-1) 0.2 0.2-1 [facility] SpringsUrine total bilirubin measurement (mass/volume)2019-10-05 06:00:00* Test Item Value Reference Range Interpretation Comments Urine Bilirubin (test code = 1978-6) NEGATIVE NEGATIVE [facility] SpringsUrine erythrocytes kjrswzjde4652-64-93 06:00:00* Test Item Value Reference Range Interpretation Comments Urine Blood (test code = 34888-0) TRACE NEGATIVE [facility] SpringsAutomated urine sediment leukocyte count by microscopy (number/high power field)2019-10-05 06:00:00* Test Item Value Reference Range Interpretation Comments Urine WBC (test code = 5821-4) 0-5 0-5 [facility] SpringsErythrocytes detection in urine sediment by light haqebqkdek8278-11-05 06:00:00* Test Item Value Reference Range Interpretation Comments Urine RBC (test code = 92250-2) 0-5 0-5 [facility] SpringsBacteria detection in urine sediment by light aygworjtwf3193-30-49 06:00:00* Test Item Value Reference Range Interpretation Comments Urine Bacteria (test code = 64842-4) RARE NONE [facility] SpringsEpithelial cells detection in urine sediment by light lmxambtmka5196-70-68 06:00:00* Test Item Value Reference Range Interpretation Comments Urine Epithelial Cells (test code = 41526-8) RARE NONE [facility] SpringsUrine color dwmtuzjivwilm8975-64-57 06:00:00* Test Item Value Reference Range Interpretation Comments Urine Color (test code = 5778-6) YELLOW YELLOW [facility] SpringsUrine ibwrsyo5729-77-65 06:00:00* Test Item Value Reference Range Interpretation Comments Urine Clarity (test code = 46444-5) CLEAR CLEAR [facility] Allenpecific gravity of Urine by Test strip 2019-10-05 06:00:00* Test Item Value Reference Range Interpretation Comments Urine Specific [place] (test code = 5811-5) 1.020 1.010-1.02 5 [facility] SpringsUrine pH measurement by automated test torud9917-99-62 06:00:00* Test Item Value Reference Range Interpretation Comments Urine pH (test code = 91430-4) 7.5 5-7 [facility] SpringsUrine leukocyte esterase detection by rqplcalx5706-00-95 06:00:00* Test Item Value Reference Range Interpretation Comments Urine Leukocyte Esterase (test code = 5799-2) NEGATIVE NEGATIVE [facility] SpringsUrine nitrite gvnufufqz8175-75-02 06:00:00* Test Item Value Reference Range Interpretation Comments Urine Nitrite (test code = 98822-7) NEGATIVE NEGATIVE [facility] SpringsUrine protein measurement by test strip (mass/volume)2019-10-05 06:00:00* Test Item Value Reference Range Interpretation Comments Urine Protein (test code = 5804-0) NEGATIVE NEGATIVE [facility] SpringsUrine glucose lilgvyaok9356-08-38 06:00:00* Test Item Value Reference Range Interpretation Comments Urine Glucose (UA) (test code = 2349-9) 2+ NEGATIVE [facility] SpringsUrine ketones detection by automated test oqrfl8017-52-01 06:00:00* Test Item Value Reference Range Interpretation Comments Urine Ketones (test code = 70275-8) TRACE NEGATIVE [facility] SpringsUrine opiates screening webe4430-28-52 06:00:00* Test Item Value Reference Range Interpretation Comments Urine Opiates Screen (test code = 95622-0) POSITIVE NEGATIVE This test provides only a screen. Positive results should be repeated by a confi rmatory test.[facility] SpringsBarbiturates screen, urine 2019-10-05 06:00:00* Test Item Value Reference Range Interpretation Comments Urine Barbiturates Screen (test code = 041233255) NEGATIVE NEGA TIVE [facility] SpringsUrine phencyclidine detection by screening wfyiew3669-91-80 06:00:00* Test Item Value Reference Range Interpretation Comments Urine Phencyclidine Screen (test code = 32227-4) NEGATIVE NEGAT GILSON [facility] SpringsUrine amphetamines detection by screen method > 1000 ng/zY2020-28-93 06:00:00* Test Item Value Reference Range Interpretation Comments Urine Amphetamines Screen (test code = 67717-5) NEGATIVE NEGATI VE [facility] SpringsFluoroscopic procedure less than one hour ubfdfbrv8904-08-36 06:00:00* Test Item Value Reference Range Interpretation Comments Urine Methamphetamines Screen (test code = Urine Metha mphetamines Screen) NEGATIVE NEGATIVE [facility] SpringsUrine benzodiazepines detection by screening tpqcse4215-82-56 06:00:00* Test Item Value Reference Range Interpretation Comments Urine Benzodiazepines Screen (test code = 81937-4) NEGATIVE NEG ATIVE [facility] SpringsUrine cocaine measurement (mass/volume) 2019-10-05 06:00:00* Test Item Value Reference Range Interpretation Comments Urine Cocaine Screen (test code = 3398-5) NEGATIVE NEGATIVE [facility] SpringsUrine cannabinoids detection by screening dstlmg0701-61-22 06:00:00* Test Item Value Reference Range Interpretation Comments Urine Cannabinoids Screen (test code = 74725-7) POSITIVE NEGATI VE This test provides only a screen. Positive results should be repeated by a confi rmatory test.[facility] SpringsUrine methadone screen 2019-10-05 06:00:00* Test Item Value Reference Range Interpretation Comments Urine Methadone Screen (test code = 70501-1) NEGATIVE NEGATIVE THESE RESULTS ARE FOR MEDICAL TREATMENT ONLYTHIS REPORT CONTAINS UNCONFIR MED SCREENING RESULTS*POSITIVE RESULTS WILL BE CONFIRMED BY REFERENCE LAB UPON R EQUEST CUT-OFFDRUG CLASS CONCENTRATION ng/mLAmphetamines 1000Methamphetamines 1000Cocaine Metabolite 300Opiate 300Phencyc lidine 25Cannabinoid 50Barbiturates 300Benzodiazepine 300Methadone 300[facility] HospitalUrine urobilinogen measurement by test strip (mass/volume)2019-10-05 06:00:00* Test Item Value Reference Range Interpretation Comments Urine Urobilinogen (test code = 57939-6) 0.2 0.2-1 [facility] SpringsUrine total bilirubin measurement (mass/volume)2019-10-05 06:00:00* Test Item Value Reference Range Interpretation Comments Urine Bilirubin (test code = 1978-6) NEGATIVE NEGATIVE [facility] SpringsUrine erythrocytes wdbgxvhrn4875-79-81 06:00:00* Test Item Value Reference Range Interpretation Comments Urine Blood (test code = 08652-2) TRACE NEGATIVE [facility] SpringsAutomated urine sediment leukocyte count by microscopy (number/high power field)2019-10-05 06:00:00* Test Item Value Reference Range Interpretation Comments Urine WBC (test code = 5821-4) 0-5 0-5 [facility] SpringsErythrocytes detection in urine sediment by light ukwmccgrph2466-07-15 06:00:00* Test Item Value Reference Range Interpretation Comments Urine RBC (test code = 23162-5) 0-5 0-5 [facility] SpringsBacteria detection in urine sediment by light ufjmeahuxe5356-77-58 06:00:00* Test Item Value Reference Range Interpretation Comments Urine Bacteria (test code = 58002-6) RARE NONE [facility] SpringsEpithelial cells detection in urine sediment by light rqwopdexjw7222-92-87 06:00:00* Test Item Value Reference Range Interpretation Comments Urine Epithelial Cells (test code = 10692-4) RARE NONE [facility] SpringsUrine color mogoaqhwcvmye4915-37-48 06:00:00* Test Item Value Reference Range Interpretation Comments Urine Color (test code = 5778-6) YELLOW YELLOW [facility] SpringsUrine thgqnpt7629-49-91 06:00:00* Test Item Value Reference Range Interpretation Comments Urine Clarity (test code = 88933-5) CLEAR CLEAR [facility]pecific [facility] of Urine by Test strip 2019-10-05 06:00:00* Test Item Value Reference Range Interpretation Comments Urine Specific [place] (test code = 5811-5) 1.020 1.010-1.02 5 [facility] SpringsUrine pH measurement by automated test kdmfz6152-18-79 06:00:00* Test Item Value Reference Range Interpretation Comments Urine pH (test code = 77293-0) 7.5 5-7 [facility] SpringsUrine leukocyte esterase detection by chmkgxbj3707-78-25 06:00:00* Test Item Value Reference Range Interpretation Comments Urine Leukocyte Esterase (test code = 5799-2) NEGATIVE NEGATIVE [facility] SpringsUrine nitrite buqgxftxo8194-06-06 06:00:00* Test Item Value Reference Range Interpretation Comments Urine Nitrite (test code = 40249-3) NEGATIVE NEGATIVE [facility] SpringsUrine protein measurement by test strip (mass/volume)2019-10-05 06:00:00* Test Item Value Reference Range Interpretation Comments Urine Protein (test code = 5804-0) NEGATIVE NEGATIVE [facility] SpringsUrine glucose tdymejusc1286-42-64 06:00:00* Test Item Value Reference Range Interpretation Comments Urine Glucose (UA) (test code = 2349-9) 2+ NEGATIVE [facility] SpringsUrine ketones detection by automated test libwc5057-60-72 06:00:00* Test Item Value Reference Range Interpretation Comments Urine Ketones (test code = 13895-2) TRACE NEGATIVE [facility] SpringsUrine opiates screening amfp1422-41-51 06:00:00* Test Item Value Reference Range Interpretation Comments Urine Opiates Screen (test code = 25290-5) POSITIVE NEGATIVE This test provides only a screen. Positive results should be repeated by a confi rmatory test.[facility] SpringsBarbiturates screen, urine 2019-10-05 06:00:00* Test Item Value Reference Range Interpretation Comments Urine Barbiturates Screen (test code = 713838137) NEGATIVE NEGA TIVE [facility] SpringsUrine phencyclidine detection by screening lajfxd6432-33-05 06:00:00* Test Item Value Reference Range Interpretation Comments Urine Phencyclidine Screen (test code = 05960-3) NEGATIVE NEGAT GILSON [facility] SpringsUrine amphetamines detection by screen method > 1000 ng/mS8708-13-89 06:00:00* Test Item Value Reference Range Interpretation Comments Urine Amphetamines Screen (test code = 63523-7) NEGATIVE NEGATI VE [facility] SpringsFluoroscopic procedure less than one hour cvgpudya6611-71-03 06:00:00* Test Item Value Reference Range Interpretation Comments Urine Methamphetamines Screen (test code = Urine Metha mphetamines Screen) NEGATIVE NEGATIVE [facility] SpringsUrine benzodiazepines detection by screening ouzyjj9479-39-58 06:00:00* Test Item Value Reference Range Interpretation Comments Urine Benzodiazepines Screen (test code = 23393-9) NEGATIVE NEG ATIVE [facility] SpringsUrine cocaine measurement (mass/volume) 2019-10-05 06:00:00* Test Item Value Reference Range Interpretation Comments Urine Cocaine Screen (test code = 3398-5) NEGATIVE NEGATIVE [facility] SpringsUrine cannabinoids detection by screening wiofnb4664-07-91 06:00:00* Test Item Value Reference Range Interpretation Comments Urine Cannabinoids Screen (test code = 77566-0) POSITIVE NEGATI VE This test provides only a screen. Positive results should be repeated by a confi rmatory test.[facility] SpringsUrine methadone screen 2019-10-05 06:00:00* Test Item Value Reference Range Interpretation Comments Urine Methadone Screen (test code = 21865-1) NEGATIVE NEGATIVE THESE RESULTS ARE FOR MEDICAL TREATMENT ONLYTHIS REPORT CONTAINS UNCONFIR MED SCREENING RESULTS*POSITIVE RESULTS WILL BE CONFIRMED BY REFERENCE LAB UPON R EQUEST CUT-OFFDRUG CLASS CONCENTRATION ng/mLAmphetamines 1000Methamphetamines 1000Cocaine Metabolite 300Opiate 300Phencyc lidine 25Cannabinoid 50Barbiturates 300Benzodiazepine 300Methadone 300[facility] HospitalUrine urobilinogen measurement by test strip (mass/volume)2019-10-05 06:00:00* Test Item Value Reference Range Interpretation Comments Urine Urobilinogen (test code = 11143-2) 0.2 0.2-1 [facility] SpringsUrine total bilirubin measurement (mass/volume)2019-10-05 06:00:00* Test Item Value Reference Range Interpretation Comments Urine Bilirubin (test code = 1978-6) NEGATIVE NEGATIVE [facility] SpringsUrine erythrocytes sfqwqdecn7531-05-56 06:00:00* Test Item Value Reference Range Interpretation Comments Urine Blood (test code = 94810-9) TRACE NEGATIVE [facility] SpringsAutomated urine sediment leukocyte count by microscopy (number/high power field)2019-10-05 06:00:00* Test Item Value Reference Range Interpretation Comments Urine WBC (test code = 5821-4) 0-5 0-5 [facility] SpringsErythrocytes detection in urine sediment by light rxjercwnhe5465-53-69 06:00:00* Test Item Value Reference Range Interpretation Comments Urine RBC (test code = 77865-2) 0-5 0-5 [facility] SpringsBacteria detection in urine sediment by light lxohehwche2388-57-42 06:00:00* Test Item Value Reference Range Interpretation Comments Urine Bacteria (test code = 75044-9) RARE NONE [facility] SpringsEpithelial cells detection in urine sediment by light nwiwkrpkap4875-33-28 06:00:00* Test Item Value Reference Range Interpretation Comments Urine Epithelial Cells (test code = 66282-3) RARE NONE [facility] SpringsUrine color veylxmqhogpvh0113-44-91 06:00:00* Test Item Value Reference Range Interpretation Comments Urine Color (test code = 5778-6) YELLOW YELLOW [facility] SpringsUrine [id number] 06:00:00* Test Item Value Reference Range Interpretation Comments Urine Clarity (test code = 30288-2) CLEAR [facility]AR [facility] by Test strip 2019-10-05 06:00:00* Test Item Value Reference Range Interpretation Comments Urine Specific [place] (test code = 5811-5) 1.020 1.010-1.02 5 [facility] SpringsUrine pH measurement by automated test [id number] 06:00:00* Test Item Value Reference Range Interpretation Comments Urine pH (test code = 32390-5) 7.5 5-7 [facility] SpringsUrine leukocyte esterase detection by lgewrypb3430-75-82 06:00:00* Test Item Value Reference Range Interpretation Comments Urine Leukocyte Esterase (test code = 5799-2) NEGATIVE NEGATIVE [facility] SpringsUrine nitrite ftcnokarn6142-61-04 06:00:00* Test Item Value Reference Range Interpretation Comments Urine Nitrite (test code = 61946-3) NEGATIVE NEGATIVE [facility] SpringsUrine protein measurement by test strip (mass/volume)2019-10-05 06:00:00* Test Item Value Reference Range Interpretation Comments Urine Protein (test code = 5804-0) NEGATIVE NEGATIVE [facility] SpringsUrine glucose jaqybimkv2113-00-71 06:00:00* Test Item Value Reference Range Interpretation Comments Urine Glucose (UA) (test code = 2349-9) 2+ NEGATIVE [facility] SpringsUrine ketones detection by automated test itohv6393-74-24 06:00:00* Test Item Value Reference Range Interpretation Comments Urine Ketones (test code = 52642-8) TRACE NEGATIVE [facility] SpringsUrine opiates screening spsb2122-86-50 06:00:00* Test Item Value Reference Range Interpretation Comments Urine Opiates Screen (test code = 89889-1) POSITIVE NEGATIVE This test provides only a screen. Positive results should be repeated by a confi rmatory test.[facility] SpringsBarbiturates screen, urine 2019-10-05 06:00:00* Test Item Value Reference Range Interpretation Comments Urine Barbiturates Screen (test code = 050178908) NEGATIVE NEGA TIVE [facility] SpringsUrine phencyclidine detection by screening xefpsq7189-74-02 06:00:00* Test Item Value Reference Range Interpretation Comments Urine Phencyclidine Screen (test code = 71191-4) NEGATIVE NEGAT [place] [facility] SpringsUrine amphetamines detection by screen method > 1000 ng/dN5896-74-73 06:00:00* Test Item Value Reference Range Interpretation Comments Urine Amphetamines Screen (test code = 22656-1) NEGATIVE NEGATI VE [facility] SpringsFluoroscopic procedure less than one hour yjyjlxlr5491-01-52 06:00:00* Test Item Value Reference Range Interpretation Comments Urine Methamphetamines Screen (test code = Urine Metha mphetamines Screen) NEGATIVE NEGATIVE [facility] SpringsUrine benzodiazepines detection by screening [id number] 06:00:00* Test Item Value Reference Range Interpretation Comments Urine Benzodiazepines Screen (test code = 35233-1) NEGATIVE NEG ATIVE [facility] SpringsUrine cocaine measurement (mass/volume) 2019-10-05 06:00:00* Test Item Value Reference Range Interpretation Comments Urine Cocaine Screen (test code = 3398-5) NEGATIVE NEGATIVE [facility] SpringsUrine cannabinoids detection by screening hzqjum9859-12-02 06:00:00* Test Item Value Reference Range Interpretation Comments Urine Cannabinoids Screen (test code = 09166-4) POSITIVE NEGATI VE This test provides only a screen. Positive results should be repeated by a confi rmatory test.[facility] SpringsUrine methadone screen 2019-10-05 06:00:00* Test Item Value Reference Range Interpretation Comments Urine Methadone Screen (test code = 32480-8) NEGATIVE NEGATIVE THESE RESULTS ARE FOR MEDICAL TREATMENT ONLYTHIS REPORT CONTAINS UNCONFIR MED SCREENING RESULTS*POSITIVE RESULTS WILL BE CONFIRMED BY REFERENCE LAB UPON R EQUEST CUT-OFFDRUG CLASS CONCENTRATION ng/mLAmphetamines 1000Methamphetamines 1000Cocaine Metabolite 300Opiate 300Phencyc lidine 25Cannabinoid 50Barbiturates 300Benzodiazepine 300Methadone 300[facility] urobilinogen measurement by test strip (mass/volume)2019-10-05 06:00:00* Test Item Value Reference Range Interpretation Comments Urine Urobilinogen (test code = 24910-6) 0.2 0.2-1 [facility]Urine total bilirubin measurement (mass/volume)2019-10-05 06:00:00* Test Item Value Reference Range Interpretation Comments Urine Bilirubin (test code = 1978-6) NEGATIVE NEGATIVE [facility] SpringsUrine erythrocytes [id number] 06:00:00* Test Item Value Reference Range Interpretation Comments Urine Blood (test code = 90097-6) TRACE NEGATIVE [facility] SpringsAutomated urine sediment leukocyte count by microscopy (number/high power field)2019-10-05 06:00:00* Test Item Value Reference Range Interpretation Comments Urine WBC (test code = 5821-4) 0-5 0-5 [facility] SpringsErythrocytes detection in urine sediment by light [id number] 06:00:00* Test Item Value Reference Range Interpretation Comments Urine RBC (test code = 20726-3) 0-5 0-5 [facility] SpringsBacteria detection in urine sediment by light wufhwgldvm8506-54-83 06:00:00* Test Item Value Reference Range Interpretation Comments Urine Bacteria (test code = 01511-0) RARE NONE [facility] SpringsEpithelial cells detection in urine sediment by light lewezcrzvl1635-05-83 06:00:00* Test Item Value Reference Range Interpretation Comments Urine Epithelial Cells (test code = 02668-9) RARE NONE [facility] SpringsProthrombin time (PT) in platelet poor plasma by coagulation nmymw9034-01-12 05:08:00* Test Item Value Reference Range Interpretation Comments Prothrombin Time (test code = 5902-2) 13.4 11.9-14.5 [facility] SpringsINR in Platelet poor plasma by Coagulation [id number] 05:08:00* Test Item Value Reference Range Interpretation Comments Prothromb Time International Ratio (test code = 6301-6) 0.96 Oral Anticoagulant Therapy INR Values:1. Low Intensity Therapy 1.5 - 2.02 . Moderate Intensity Therapy 2.0 - 3.03. High Intensity Therapy(1) 2.5 - 3. 54. High Intensity Therapy(2) 3.0 - 4.05. Panic Value INR > 5.0 [facility] SpringsProthrombin time (PT) in platelet poor plasma by coagulation [id number] 05:08:00* Test Item Value Reference Range Interpretation Comments Prothrombin Time (test code = 5902-2) 13.4 11.9-14.5 [facility] SpringsINR in Platelet poor plasma by Coagulation [id number] 05:08:00* Test Item Value Reference Range Interpretation Comments Prothromb Time International Ratio (test code = 6301-6) 0.96 Oral Anticoagulant Therapy INR Values:1. Low Intensity Therapy 1.5 - 2.02 . Moderate Intensity Therapy 2.0 - 3.03. High Intensity Therapy(1) 2.5 - 3. 54. High Intensity Therapy(2) 3.0 - 4.05. Panic Value INR > 5.0 [facility] SpringsProthrombin time (PT) in platelet poor plasma by coagulation jazho3816-05-11 05:08:00* Test Item Value Reference Range Interpretation Comments Prothrombin Time (test code = 5902-2) 13.4 11.9-14.5 [facility] SpringsINR in Platelet poor plasma by Coagulation [id number] 05:08:00* Test Item Value Reference Range Interpretation Comments Prothromb Time International Ratio (test code = 6301-6) 0.96 Oral Anticoagulant Therapy INR Values:1. Low Intensity Therapy 1.5 - 2.02 . Moderate Intensity Therapy 2.0 - 3.03. High Intensity Therapy(1) 2.5 - 3. 54. High Intensity Therapy(2) 3.0 - 4.05. Panic Value INR > 5.0 [facility] SpringsProthrombin time (PT) in platelet poor plasma by coagulation xpsmr5858-21-84 05:08:00* Test Item Value Reference Range Interpretation Comments Prothrombin Time (test code = 5902-2) 13.4 11.9-14.5 [facility] SpringsINR in Platelet poor plasma by Coagulation zsfkn7360-15-92 05:08:00* Test Item Value Reference Range Interpretation Comments Prothromb Time International Ratio (test code = 6301-6) 0.96 Oral Anticoagulant Therapy INR Values:1. Low Intensity Therapy 1.5 - 2.02 . Moderate Intensity Therapy 2.0 - 3.03. High Intensity Therapy(1) 2.5 - 3. 54. High Intensity Therapy(2) 3.0 - 4.05. Panic Value INR > 5.0 [facility] SpringsCT ABDOMEN/PELVIS [id number] 12:03:00 [facility] [address] [place] [address] Patient Name: BREE LINDSAY MR #: [id number] : 1975 Age/Sex: 43/M Req #: [id number] Adm Physician: ISACC JAVED MD Ordered by: LU SADLER DO Rep ort #: [id number] Location: MED/SURG Room/B ed: 115-1 Procedure: [id number] CT/CT ABDOMEN/ PELVIS W Exam Date: 10/04/19 [...] Bilirubin (test code = 1975-2) 0.4 0.2-1.2 [facility] SpringsFluoroscopic procedure less than one hour slxpqpow8040-73-76 06:25:00* Test Item Value Reference Range Interpretation Comments Aspartate Amino Transf (AST/SGOT) (test code = Aspartate Amino Transf (AST/SGOT)) 20 5-34 [facility] alanine aminotransferase measurement (enzymatic activity/volume)2019-10-04 06:25:00* Test Item Value Reference Range Interpretation Comments Alanine Aminotransferase (ALT/SGPT) (test code = 1742-6) 15 0-55 [facility] protein measurement (mass/volume)2019-10-04 06:25:00* Test Item Value Reference Range Interpretation Comments Total Protein (test code = 2885-2) 7.2 6.5-8.1 [facility] or plasma albumin measurement (mass/volume)2019-10-04 06:25:00* Test Item Value Reference Range Interpretation Comments Albumin (test code = 1751-7) 3.9 3.5-5.0 [facility] SpringsPlasma globulin measurement (mass/volume) 2019-10-04 06:25:00* Test Item Value Reference Range Interpretation Comments Globulin (test code = 63319-7) 3.3 2.3-3.5 [facility] plasma albumin/globulin mass idrtl1650-09-78 06:25:00* Test Item Value Reference Range Interpretation Comments Albumin/Globulin Ratio (test code = 1759-0) 1.2 0.8-2.0 [facility] plasma alkaline phosphatase measurement (enzymatic activity/volume)2019-10-04 06:25:00* Test Item Value Reference Range Interpretation Comments Alkaline Phosphatase (test code = 6768-6) 90 40-150 [facility] or plasma total bilirubin measurement (mass/volume)2019-10-04 06:25:00* Test Item Value Reference Range Interpretation Comments Total Bilirubin (test code = 1975-2) 0.4 0.2-1.2 [facility] SpringsFluoroscopic procedure less than one hour [id number] 06:25:00* Test Item Value Reference Range Interpretation Comments Aspartate Amino Transf (AST/SGOT) (test code = Aspartate Amino Transf (AST/SGOT)) 20 5-34 [facility] alanine aminotransferase measurement (enzymatic activity/volume)2019-10-04 06:25:00* Test Item Value Reference Range Interpretation Comments Alanine Aminotransferase (ALT/SGPT) (test code = 1742-6) 15 0-55 [facility] protein measurement (mass/volume)2019-10-04 06:25:00* Test Item Value Reference Range Interpretation Comments Total Protein (test code = 2885-2) 7.2 6.5-8.1 [facility] albumin measurement (mass/volume)2019-10-04 06:25:00* Test Item Value Reference Range Interpretation Comments Albumin (test code = 1751-7) 3.9 3.5-5.0 [facility] SpringsPlasma globulin measurement (mass/volume) 2019-10-04 06:25:00* Test Item Value Reference Range Interpretation Comments Globulin (test code = 15969-7) 3.3 2.3-3.5 [facility] albumin/globulin mass [id number] 06:25:00* Test Item Value Reference Range Interpretation Comments Albumin/Globulin Ratio (test code = 1759-0) 1.2 0.8-2.0 [facility] plasma alkaline phosphatase measurement (enzymatic activity/volume)2019-10-04 06:25:00* Test Item Value Reference Range Interpretation Comments Alkaline Phosphatase (test code = 6768-6) 90 40-150 [facility] plasma total bilirubin measurement (mass/volume)2019-10-04 06:25:00* Test Item Value Reference Range Interpretation Comments Total Bilirubin (test code = 1975-2) 0.4 0.2-1.2 [facility] SpringsFluoroscopic procedure less than one hour [id number] 06:25:00* Test Item Value Reference Range Interpretation Comments Aspartate Amino Transf (AST/SGOT) (test code = Aspartate Amino Transf (AST/SGOT)) 20 5-34 [facility] alanine aminotransferase measurement (enzymatic activity/volume)2019-10-04 06:25:00* Test Item Value Reference Range Interpretation Comments Alanine Aminotransferase (ALT/SGPT) (test code = 1742-6) 15 0-55 [facility] protein measurement (mass/volume)2019-10-04 06:25:00* Test Item Value Reference Range Interpretation Comments Total Protein (test code = 2885-2) 7.2 6.5-8.1 [facility] albumin measurement (mass/volume)2019-10-04 06:25:00* Test Item Value Reference Range Interpretation Comments Albumin (test code = 1751-7) 3.9 3.5-5.0 [facility] SpringsPlasma globulin measurement (mass/volume) 2019-10-04 06:25:00* Test Item Value Reference Range Interpretation Comments Globulin (test code = 63784-7) 3.3 2.3-3.5 [facility] albumin/globulin mass uyjvd7203-10-13 06:25:00* Test Item Value Reference Range Interpretation Comments Albumin/Globulin Ratio (test code = 1759-0) 1.2 0.8-2.0 [facility] alkaline phosphatase measurement (enzymatic activity/volume)2019-10-04 06:25:00* Test Item Value Reference Range Interpretation Comments Alkaline Phosphatase (test code = 6768-6) 90 40-150 [facility] plasma total bilirubin measurement (mass/volume)2019-10-04 06:25:00* Test Item Value Reference Range Interpretation Comments Total Bilirubin (test code = 1975-2) 0.4 0.2-1.2 [facility] SpringsFluoroscopic procedure less than one hour lrtgqaph4105-38-87 06:25:00* Test Item Value Reference Range Interpretation Comments Aspartate Amino Transf (AST/SGOT) (test code = Aspartate Amino Transf (AST/SGOT)) 20 5-34 [facility] alanine aminotransferase measurement (enzymatic activity/volume)2019-10-04 06:25:00* Test Item Value Reference Range Interpretation Comments Alanine Aminotransferase (ALT/SGPT) (test code = 1742-6) 15 0-55 [facility] protein measurement (mass/volume)2019-10-04 06:25:00* Test Item Value Reference Range Interpretation Comments Total Protein (test code = 2885-2) 7.2 6.5-8.1 [facility] albumin measurement (mass/volume)2019-10-04 06:25:00* Test Item Value Reference Range Interpretation Comments Albumin (test code = 1751-7) 3.9 3.5-5.0 [facility] SpringsPlasma globulin measurement (mass/volume) 2019-10-04 06:25:00* Test Item Value Reference Range Interpretation Comments Globulin (test code = 89416-1) 3.3 2.3-3.5 [facility] albumin/globulin mass [id number] 06:25:00* Test Item Value Reference Range Interpretation Comments Albumin/Globulin Ratio (test code = 1759-0) 1.2 0.8-2.0 [facility] alkaline phosphatase measurement (enzymatic activity/volume)2019-10-04 06:25:00* Test Item Value Reference Range Interpretation Comments Alkaline Phosphatase (test code = 6768-6) 90 40-150 [facility] SpringsFluoroscopic procedure less than one hour cbrtoaau8453-05-42 01:50:00* Test Item Value Reference Range Interpretation [...] under 564(g) of the ACT.Testing performed by [facility] [place], [place] [address]ZFUCHRI[facility] SpringsFluoroscopic procedure less than one hour duration 2019-10-04 [...] under 564(g) of the ACT.Testing performed by [address]CT ABDOM[address]/PELVIS [id number] 12:40:00 [place] [address] Patient Name: BREE LINDSAY MR #: [id number] : 1975 Age/Sex: 43/M Req #: [id number] Adm Physician: Ordered by: STACIE FALLON, JEANNIE FALLON Report #: [id number] Location: [facility] mar[facility]/Bed: Procedure: [id number] CT/CT ABD OMEN/PELVIS W Exam Date: 09/30/19 [...] (PT) in platelet poor plasma by coagulation dsgmu3811-09-53 09:55:00* Test Item Value Reference Range Interpretation Comments Prothrombin Time (test code = 5902-2) 13.3 11.9-14.5 [facility] SpringsINR in Platelet poor plasma by Coagulation ahjhx7011-62-26 09:55:00* Test Item Value Reference Range Interpretation Comments Prothromb Time International Ratio (test code = 6301-6) 0.96 Oral Anticoagulant Therapy INR Values:1. Low Intensity Therapy 1.5 - 2.02 . Moderate Intensity Therapy 2.0 - 3.03. High Intensity Therapy(1) 2.5 - 3. 54. High Intensity Therapy(2) 3.0 - 4.05. Panic Value INR > 5.0 [facility] SpringsActivated partial thromboplastin time (aPTT) in platelet poor plasma by coagulation ekbvo4874-91-94 09:55:00* Test Item Value Reference Range Interpretation Comments Activated Partial Thromboplast Time (test code = 40896-2) 26.1 23.8-35.5 [facility] sodium measurement (moles/volume)2019-09-30 09:55:00* Test Item Value Reference Range Interpretation Comments Sodium Level (test code = 2951-2) 142 136-145 [facility] potassium measurement (moles/volume)2019-09-30 09:55:00* Test Item Value Reference Range Interpretation Comments Potassium Level (test code = 2823-3) 3.9 3.5-5.1 [facility] chloride measurement (moles/volume)2019-09-30 09:55:00* Test Item Value Reference Range Interpretation Comments Chloride Level (test code = 2075-0) 103 98-107 [facility] plasma carbon dioxide, total measurement (moles/volume)2019-09-30 09:55:00* Test Item Value Reference Range Interpretation Comments Carbon Dioxide Level (test code = 2028-9) 30 22-29 [facility] plasma anion law7765-95-58 09:55:00* Test Item Value Reference Range Interpretation Comments Anion Gap (test code = 46992-9) 12.9 8-16 [facility] plasma urea nitrogen measurement (mass/volume)2019-09-30 09:55:00* Test Item Value Reference Range Interpretation Comments Blood Urea Nitrogen (test code = 3094-0) 13 7-26 [facility] creatinine measurement (mass/volume)2019-09-30 09:55:00* Test Item Value Reference Range Interpretation Comments Creatinine (test code = 2160-0) 1.18 0.72-1.25 [facility] plasma urea nitrogen/creatinine mass iipqr3865-96-64 09:55:00* Test Item Value Reference Range Interpretation Comments BUN/Creatinine Ratio (test code = 3097-3) 11 6-25 [facility] SpringsEstimated glomerular filtration rate (GFR) bnahvsflkvxxv5107-67-13 09:55:00* Test Item Value Reference Range Interpretation Comments Estimat Glomerular Filtration Rate (test code = 441570684) > 60 >60 Ranges were taken from the National Kidney Disease Education Program and the [facility] literature.Reference ranges:60 or greater: Ykzjql31-91 ( for 3 consecutive months): Chronic kidney disease 15 or less: Kidney failureCHRISTUS [facility] – [facility] SpringsGlucose uwazqriyyat2749-09-55 09:55:00* Test Item Value Reference Range Interpretation Comments Glucose Level (test code = UPC2352) 328 74-118 [facility] calcium measurement (mass/volume)2019-09-30 09:55:00* Test Item Value Reference Range Interpretation Comments Calcium Level (test code = 58573-3) 8.8 8.4-10.2 [facility] SpringsFluoroscopic procedure less than one hour xzfgjkqk5552-82-23 09:55:00* Test Item Value Reference Range Interpretation Comments Lactic Acid Level (test code = Lactic Acid Level) 1.0 0.5- 2.0 [facility] total bilirubin measurement (mass/volume)2019-09-30 09:55:00* Test Item Value Reference Range Interpretation Comments Total Bilirubin (test code = 1975-2) 0.5 0.2-1.2 [facility] SpringsFluoroscopic procedure less than one hour atnuplnt5096-48-53 09:55:00* Test Item Value Reference Range Interpretation Comments Aspartate Amino Transf (AST/SGOT) (test code = Aspartate Amino Transf (AST/SGOT)) 16 5-34 [facility] alanine aminotransferase measurement (enzymatic activity/volume)2019-09-30 09:55:00* Test Item Value Reference Range Interpretation Comments Alanine Aminotransferase (ALT/SGPT) (test code = 1742-6) 15 0-55 [facility] protein measurement (mass/volume)2019-09-30 09:55:00* Test Item Value Reference Range Interpretation Comments Total Protein (test code = 2885-2) 6.4 6.5-8.1 [facility] albumin measurement (mass/volume)2019-09-30 09:55:00* Test Item Value Reference Range Interpretation Comments Albumin (test code = 1751-7) 3.4 3.5-5.0 [facility] SpringsPlasma globulin measurement (mass/volume) 2019-09-30 09:55:00* Test Item Value Reference Range Interpretation Comments Globulin (test code = 93640-6) 3.0 2.3-3.5 [facility] albumin/globulin mass hlknf4225-49-02 09:55:00* Test Item Value Reference Range Interpretation Comments Albumin/Globulin Ratio (test code = 1759-0) 1.1 0.8-2.0 [facility] alkaline phosphatase measurement (enzymatic activity/volume)2019-09-30 09:55:00* Test Item Value Reference Range Interpretation Comments Alkaline Phosphatase (test code = 6768-6) 92 40-150 [facility] plasma creatine kinase measurement (enzymatic activity/volume)2019-09-30 09:55:00* Test Item Value Reference Range Interpretation Comments Creatine Kinase (test code = 2157-6) 365 30-200 [facility] or plasma creatine kinase MB measurement (mass/volume)2019-09-30 09:55:00* Test Item Value Reference Range Interpretation Comments Creatine Kinase MB (test code = 57572-6) 1.50 0-5.0 [facility] SpringsTroponin I measurement by highly sensitive enzyme utkdcvtmfen6007-05-70 09:55:00* Test Item Value Reference Range Interpretation Comments Troponin I (test code = 58704-7) 0.001 0-0.300 [facility] plasma amylase measurement (enzymatic activity/volume)2019-09-30 09:55:00* Test Item Value Reference Range Interpretation Comments Amylase Level (test code = 1798-8) 49 25-125 [facility] plasma lipase measurement (enzymatic activity/volume)2019-09-30 09:55:00* Test Item Value Reference Range Interpretation Comments Lipase (test code = 3040-3) < 4 8-78 [facility] SpringsActivated partial thromboplastin time (aPTT) in platelet poor plasma by coagulation kaoif5877-10-09 09:55:00* Test Item Value Reference Range Interpretation Comments Activated Partial Thromboplast Time (test code = 87634-6) 26.1 23.8-35.5 [facility] SpringsFluoroscopic procedure less than one hour nzxmdrxy8336-47-08 09:55:00* Test Item Value Reference Range Interpretation Comments Lactic Acid Level (test code = Lactic Acid Level) 1.0 0.5- 2.0 [facility] plasma creatine kinase measurement (enzymatic activity/volume)2019-09-30 09:55:00* Test Item Value Reference Range Interpretation Comments Creatine Kinase (test code = 2157-6) 365 30-200 [facility] or plasma creatine kinase MB measurement (mass/volume)2019-09-30 09:55:00* Test Item Value Reference Range Interpretation Comments Creatine Kinase MB (test code = 68923-3) 1.50 0-5.0 [facility] SpringsTroponin I measurement by highly sensitive enzyme bjchfcnezzl1080-19-69 09:55:00* Test Item Value Reference Range Interpretation Comments Troponin I (test code = 85494-5) 0.001 0-0.300 [facility] or plasma amylase measurement (enzymatic activity/volume)2019-09-30 09:55:00* Test Item Value Reference Range Interpretation Comments Amylase Level (test code = 1798-8) 49 25-125 [facility] or plasma lipase measurement (enzymatic activity/volume)2019-09-30 09:55:00* Test Item Value Reference Range Interpretation Comments Lipase (test code = 3040-3) < 4 8-78 [facility] SpringsActivated partial thromboplastin time (aPTT) in platelet poor plasma by coagulation tesyg7687-63-16 09:55:00* Test Item Value Reference Range Interpretation Comments Activated Partial Thromboplast Time (test code = 18889-8) 26.1 23.8-35.5 [facility] SpringsFluoroscopic procedure less than one hour gejpiylg4812-91-59 09:55:00* Test Item Value Reference Range Interpretation Comments Lactic Acid Level (test code = Lactic Acid Level) 1.0 0.5- 2.0 [facility] or plasma creatine kinase measurement (enzymatic activity/volume)2019-09-30 09:55:00* Test Item Value Reference Range Interpretation Comments Creatine Kinase (test code = 2157-6) 365 30-200 [facility] or plasma creatine kinase MB measurement (mass/volume)2019-09-30 09:55:00* Test Item Value Reference Range Interpretation Comments Creatine Kinase MB (test code = 84467-4) 1.50 0-5.0 [facility] SpringsTroponin I measurement by highly sensitive enzyme uzzibsgcugr6571-97-37 09:55:00* Test Item Value Reference Range Interpretation Comments Troponin I (test code = 13573-8) 0.001 0-0.300 [facility] or plasma amylase measurement (enzymatic activity/volume)2019-09-30 09:55:00* Test Item Value Reference Range Interpretation Comments Amylase Level (test code = 1798-8) 49 25-125 [facility] SpringsActivated partial thromboplastin time (aPTT) in platelet poor plasma by coagulation [id number] 09:55:00* Test Item Value Reference Range Interpretation Comments Activated Partial Thromboplast Time (test code = 81442-9) 26.1 23.8-35.5 [facility] SpringsFluoroscopic procedure less than one hour lmzevuls8291-16-88 09:55:00* Test Item Value Reference Range Interpretation Comments Lactic Acid Level (test code = Lactic Acid Level) 1.0 0.5- 2.0 [facility] or plasma creatine kinase measurement (enzymatic activity/volume)2019-09-30 09:55:00* Test Item Value Reference Range Interpretation Comments Creatine Kinase (test code = 2157-6) 365 30-200 [facility] or plasma creatine kinase MB measurement (mass/volume)2019-09-30 09:55:00* Test Item Value Reference Range Interpretation Comments Creatine Kinase MB (test code = 36229-3) 1.50 0-5.0 [facility] SpringsTroponin I measurement by highly sensitive enzyme kgltbvjuqgq8801-03-89 09:55:00* Test Item Value Reference Range Interpretation Comments Troponin I (test code = 13355-9) 0.001 0-0.300 [facility] or plasma amylase measurement (enzymatic activity/volume)2019-09-30 09:55:00* Test Item Value Reference Range Interpretation Comments Amylase Level (test code = 1798-8) 49 25-125 [facility] SpringsActivated partial thromboplastin time (aPTT) in platelet poor plasma by coagulation voqyx3242-56-83 09:55:00* Test Item Value Reference Range Interpretation Comments Activated Partial Thromboplast Time (test code = 89140-9) 26.1 23.8-35.5 [facility] SpringsFluoroscopic procedure less than one hour pgjzayho1746-75-58 09:55:00* Test Item Value Reference Range Interpretation Comments Lactic Acid Level (test code = Lactic Acid Level) 1.0 0.5- 2.0 [facility] or plasma creatine kinase measurement (enzymatic activity/volume)2019-09-30 09:55:00* Test Item Value Reference Range Interpretation Comments Creatine Kinase (test code = 2157-6) 365 30-200 [facility] or plasma creatine kinase MB measurement (mass/volume)2019-09-30 09:55:00* Test Item Value Reference Range Interpretation Comments Creatine Kinase MB (test code = 91667-8) 1.50 0-5.0 [facility] SpringsTroponin I measurement by highly sensitive enzyme jglyijzldss6302-19-23 09:55:00* Test Item Value Reference Range Interpretation Comments Troponin I (test code = 32026-4) 0.001 0-0.300 [facility] plasma amylase measurement (enzymatic activity/volume)2019-09-30 09:55:00* Test Item Value Reference Range Interpretation Comments Amylase Level (test code = 1798-8) 49 25-125 [facility] SpringsCHEST SINGLE (PORTABLE)2019-09-30 09:23:00 [facility] [address] [place] [address] Patient Name: BREE LINDSAY MR #: [id number] : 1975 Age/Sex: 43/M Req #: [id number] Adm Physician: Ordered by: JEANNIE QUINONES MD, MD Report #: [id number] Location: ER Room/Bed: Procedure: [id number] DX/CHEST SINGLE (PORTABLE) Exam Date: 09/30/19 Exam Time: 083 5 REPORT STATUS: Signed EXAMINAT ION: CHEST SINGLE (PORTABLE) INDICATION: ERMD ORDER [id number] Y COMPARISON: Chest radiograph 07/23/2019, [...] Count (test code = 6690-2) 9.64 4.8-10.8 [facility] SpringsBlood erythrocytes automated count (number/volume)2019-09-30 09:10:00* Test Item Value Reference Range Interpretation Comments Red Blood Count (test code = 789-8) 3.70 4.3-5.7 [facility] SpringsBlood hemoglobin measurement (moles/volume)2019-09-30 09:10:00* Test Item Value Reference Range Interpretation Comments Hemoglobin (test code = 09529-5) 10.4 14.0-18.0 [facility] SpringsAutomated blood hematocrit (volume fraction)2019-09-30 09:10:00* Test Item Value Reference Range Interpretation Comments Hematocrit (test code = 4544-3) 32.9 38.2-49.6 [facility] SpringsAutomated erythrocyte mean corpuscular ayrrvg1531-84-64 09:10:00* Test Item Value Reference Range Interpretation Comments Mean Corpuscular Volume (test code = 787-2) 88.9 81-99 [facility] SpringsAutomated erythrocyte mean corpuscular hemoglobin (mass per erythrocyte)2019-09-30 09:10:00* Test Item Value Reference Range Interpretation Comments Mean Corpuscular Hemoglobin (test code = 785-6) 28.1 28-32 [facility] SpringsAutomated erythrocyte mean corpuscular hemoglobin concentration measurement (mass/volume)2019-09-30 09:10:00* Test Item Value Reference Range Interpretation Comments Mean Corpuscular Hemoglobin Concent (test code = 786-4) 31.6 31-35 [facility] SpringsRDW VchHl-Urt3929-93-03 09:10:00* Test Item Value Reference Range Interpretation Comments Red Cell Distribution Width (test code = 21050-6) 14.0 11.7 -14.4 [facility] SpringsAutomated blood platelet count (count/volume)2019-09-30 09:10:00* Test Item Value Reference Range Interpretation Comments Platelet Count (test code = 777-3) 263 140-360 [facility] SpringsAutomated blood segmented neutrophil count as percentage of total bzbvvcueyk2442-24-97 09:10:00* Test Item Value Reference Range Interpretation Comments Neutrophils (%) (Auto) (test code = 28899-3) 80.4 38.7-80.0 [facility] SpringsAutformerly [facility] hospitaled blood lymphocyte count as percentage ot total ywwdpdjqck9702-18-87 09:10:00* Test Item Value Reference Range Interpretation Comments Lymphocytes (%) (Auto) (test code = 736-9) 11.5 18.0-39.1 [facility] SpringsAutomated blood monocyte count as percentage of total nyboqpweyz2826-17-20 09:10:00* Test Item Value Reference Range Interpretation Comments Monocytes (%) (Auto) (test code = 5905-5) 6.3 4.4-11.3 [facility] SpringsAutomated blood eosinophil count as percentage of total hbvagtvibs8373-85-57 09:10:00* Test Item Value Reference Range Interpretation Comments Eosinophils (%) (Auto) (test code = 713-8) 0.7 0.0-6.0 [facility] SpringsAutomated blood basophil count as percentage of total gmfdiyvxlz7699-41-56 09:10:00* Test Item Value Reference Range Interpretation Comments Basophils (%) (Auto) (test code = 706-2) 0.8 0.0-1.0 [facility] SpringsFluoroscopic procedure less than one hour rxccxmww6187-64-21 09:10:00* Test Item Value Reference Range Interpretation Comments IM GRANULOCYTES % (test code = IM GRANULOCYTES %) 0.3 0.0- 1.0 [facility] SpringsAutomated blood neutrophil count 2019-09-30 09:10:00* Test Item Value Reference Range Interpretation Comments Neutrophils # (Auto) (test code = 751-8) 7.7 2.1-6.9 [facility] lymphocytes count (number/volume) 2019-09-30 09:10:00* Test Item Value Reference Range Interpretation Comments Lymphocytes # (Auto) (test code = 00401-7) 1.1 1.0-3.2 [facility] monocytes automated count (number/volume)2019-09-30 09:10:00* Test Item Value Reference Range Interpretation Comments Monocytes # (Auto) (test code = 742-7) 0.6 0.2-0.8 [facility] SpringsAutomated blood eosinophil count 2019-09-30 09:10:00* Test Item Value Reference Range Interpretation Comments Eosinophils # (Auto) (test code = 711-2) 0.1 0.0-0.4 [facility] SpringsAutomated blood basophil count (count/volume)2019-09-30 09:10:00* Test Item Value Reference Range Interpretation Comments Basophils # (Auto) (test code = 704-7) 0.1 0.0-0.1 [facility] SpringsFluoroscopic procedure less than one hour fygrimes8355-70-47 09:10:00* Test Item Value Reference Range Interpretation Comments Absolute Immature Granulocyte (auto (zeenat t code = Absolute Immature Granulocyte (auto) 0.03 0-0.1 [facility] SpringsBlood vtyzkcd1834-26-44 09:10:00* Test Item Value Reference Range Interpretation Comments Blood Culture (test code = 49117200) NO GROWTH AFTER 5 DAYS, FINAL REPORT [facility] SpringsBlood tvorxrb7675-12-75 09:10:00* Test Item Value Reference Range Interpretation Comments Blood Culture (test code = 60285295) NO GROWTH AFTER 5 DAYS, [facility] qszrzef7442-11-29 09:10:00* Test Item Value Reference Range Interpretation Comments Blood Culture (test code = 34105232) NO GROWTH AFTER 5 DAYS, FINAL REPORT [facility] kdgpksj0336-42-11 09:10:00* Test Item Value Reference Range Interpretation Comments Blood Culture (test code = 68048650) NO GROWTH AFTER 5 DAYS, FINAL REPORT [facility] SpringsUrine color keauuqlbokspq1604-86-69 08:44:00* Test Item Value Reference Range Interpretation Comments Urine Color (test code = 5778-6) YELLOW YELLOW [facility] SpringsUrine ldxxnld8552-75-01 08:44:00* Test Item Value Reference Range Interpretation Comments Urine Clarity (test code = 14492-0) CLEAR CLEAR [facility]pecific gravity of Urine by Test strip 2019-09-30 08:44:00* Test Item Value Reference Range Interpretation Comments Urine Specific [place] (test code = 5811-5) 1.025 1.010-1.02 5 [facility] SpringsUrine pH measurement by automated test pmplw1157-12-83 08:44:00* Test Item Value Reference Range Interpretation Comments Urine pH (test code = 22162-3) 7 5-7 [facility] SpringsUrine leukocyte esterase detection by xosngpdj3234-56-02 08:44:00* Test Item Value Reference Range Interpretation Comments Urine Leukocyte Esterase (test code = 5799-2) NEGATIVE NEGATIVE [facility] SpringsUrine nitrite sliusyxuc0709-31-28 08:44:00* Test Item Value Reference Range Interpretation Comments Urine Nitrite (test code = 92603-6) NEGATIVE NEGATIVE [facility] SpringsUrine protein measurement by test strip (mass/volume)2019-09-30 08:44:00* Test Item Value Reference Range Interpretation Comments Urine Protein (test code = 5804-0) 1+ NEGATIVE [facility] SpringsUrine glucose qcngahyaj5421-85-46 08:44:00* Test Item Value Reference Range Interpretation Comments Urine Glucose (UA) (test code = 2349-9) 2+ NEGATIVE [facility] SpringsUrine ketones detection by automated test jmkod4465-19-98 08:44:00* Test Item Value Reference Range Interpretation Comments Urine Ketones (test code = 17816-2) 2+ NEGATIVE [facility] SpringsUrine opiates screening ykdy3373-77-46 08:44:00* Test Item Value Reference Range Interpretation Comments Urine Opiates Screen (test code = 65733-8) POSITIVE NEGATIVE This test provides only a screen. Positive results should be repeated by a confi rmatory test.[facility] SpringsBarbiturates screen, urine 2019-09-30 08:44:00* Test Item Value Reference Range Interpretation Comments Urine Barbiturates Screen (test code = 594945771) NEGATIVE NEGA TIVE [facility] SpringsUrine phencyclidine detection by screening kcpcqx6506-35-87 08:44:00* Test Item Value Reference Range Interpretation Comments Urine Phencyclidine Screen (test code = 30745-6) NEGATIVE NEGAT [place] [facility] SpringsUrine amphetamines detection by screen method > 1000 ng/uJ0641-94-49 08:44:00* Test Item Value Reference Range Interpretation Comments Urine Amphetamines Screen (test code = 51045-1) NEGATIVE NEGATI VE [facility] SpringsFluoroscopic procedure less than one hour uvpxjoeo4317-71-40 08:44:00* Test Item Value Reference Range Interpretation Comments Urine Methamphetamines Screen (test code = Urine Metha mphetamines Screen) NEGATIVE NEGATIVE [facility] SpringsUrine benzodiazepines detection by screening fmmbzr1020-62-05 08:44:00* Test Item Value Reference Range Interpretation Comments Urine Benzodiazepines Screen (test code = 10356-8) POSITIVE NEG ATIVE This test provides only a screen. Positive results should be repeated by a confi rmatory test.[facility] SpringsUrine cocaine measurement (mass/volume)2019-09-30 08:44:00* Test Item Value Reference Range Interpretation Comments Urine Cocaine Screen (test code = 3398-5) NEGATIVE NEGATIVE [facility] SpringsUrine cannabinoids detection by screening kyyhaf9079-00-16 08:44:00* Test Item Value Reference Range Interpretation Comments Urine Cannabinoids Screen (test code = 69847-7) POSITIVE NEGATI VE This test provides only a screen. Positive results should be repeated by a confi rmatory test.[facility] SpringsUrine methadone screen 2019-09-30 08:44:00* Test Item Value Reference Range Interpretation Comments Urine Methadone Screen (test code = 96900-2) NEGATIVE NEGATIVE THESE RESULTS ARE FOR MEDICAL TREATMENT ONLYTHIS REPORT CONTAINS UNCONFIR MED SCREENING RESULTS*POSITIVE RESULTS WILL BE CONFIRMED BY REFERENCE LAB UPON R EQUEST CUT-OFFDRUG CLASS CONCENTRATION ng/mLAmphetamines 1000Methamphetamines 1000Cocaine Metabolite 300Opiate 300Phencyc lidine 25Cannabinoid 50Barbiturates 300Benzodiazepine 300Methadone 300[facility] HospitalU[facility] urobilinogen measurement by test strip (mass/volume)2019-09-30 08:44:00* Test Item Value Reference Range Interpretation Comments Urine Urobilinogen (test code = 54387-4) 0.2 0.2-1 [facility] SpringsUrine total bilirubin measurement (mass/volume)2019-09-30 08:44:00* Test Item Value Reference Range Interpretation Comments Urine Bilirubin (test code = 1978-6) NEGATIVE NEGATIVE [facility] SpringsUrine erythrocytes keljivjkb0820-63-16 08:44:00* Test Item Value Reference Range Interpretation Comments Urine Blood (test code = 48306-0) TRACE NEGATIVE [facility] SpringsAutomated urine sediment leukocyte count by microscopy (number/high power field)2019-09-30 08:44:00* Test Item Value Reference Range Interpretation Comments Urine WBC (test code = 5821-4) 21-50 0-5 [facility] SpringsErythrocytes detection in urine sediment by light vylwzljzof3787-85-89 08:44:00* Test Item Value Reference Range Interpretation Comments Urine RBC (test code = 03823-1) 6-10 0-5 [facility] SpringsBacteria detection in urine sediment by light guvlqozwfc6111-66-84 08:44:00* Test Item Value Reference Range Interpretation Comments Urine Bacteria (test code = 72033-2) FEW NONE [facility] SpringsEpithelial cells detection in urine sediment by light zsxdhqwpez7563-25-40 08:44:00* Test Item Value Reference Range Interpretation Comments Urine Epithelial Cells (test code = 64885-4) RARE NONE [facility] SpringsCapillary blood glucose measurement by glucometer (mass/volume)2019-09-24 07:23:00* Test Item Value Reference Range Interpretation Comments Bedside Glucose (test code = 60356-5) 83 70-120 Meter ID: [id number] SpringsCapillary blood glucose measurement by glucometer (mass/volume)2019-09-24 07:23:00* Test Item Value Reference Range Interpretation Comments Bedside Glucose (test code = 56858-6) 83 70-120 Meter ID: [id number] SpringsCapillary blood glucose measurement by glucometer (mass/volume)2019-09-24 07:23:00* Test Item Value Reference Range Interpretation Comments Bedside Glucose (test code = 15438-2) 83 70-120 Meter ID: [id number] [facility] SpringsTroponin I measurement by highly sensitive enzyme ljpxygnoksh0888-94-46 09:58:00* Test Item Value Reference Range Interpretation Comments Troponin I (test code = 37443-9) 0.016 0-0.300 [facility] SpringsTroponin I measurement by highly sensitive enzyme bxftqdhrbdu7246-62-34 09:58:00* Test Item Value Reference Range Interpretation Comments Troponin I (test code = 82594-0) 0.016 0-0.300 [facility] SpringsBlood leukocytes automated count (number/volume)2019-09-23 05:42:00* Test Item Value Reference Range Interpretation Comments White Blood Count (test code = 6690-2) 8.62 4.8-10.8 [facility] SpringsBlood erythrocytes automated count (number/volume)2019-09-23 05:42:00* Test Item Value Reference Range Interpretation Comments Red Blood Count (test code = 789-8) 3.57 4.3-5.7 [facility] SpringsBlood hemoglobin measurement (moles/volume)2019-09-23 05:42:00* Test Item Value Reference Range Interpretation Comments Hemoglobin (test code = 87399-2) 10.3 14.0-18.0 [facility] SpringsAutomated blood hematocrit (volume fraction)2019-09-23 05:42:00* Test Item Value Reference Range Interpretation Comments Hematocrit (test code = 4544-3) 32.2 38.2-49.6 [facility] SpringsAutomated erythrocyte mean corpuscular qhgwwk2664-53-88 05:42:00* Test Item Value Reference Range Interpretation Comments Mean Corpuscular Volume (test code = 787-2) 90.2 81-99 [facility] SpringsAutomated erythrocyte mean corpuscular hemoglobin (mass per erythrocyte)2019-09-23 05:42:00* Test Item Value Reference Range Interpretation Comments Mean Corpuscular Hemoglobin (test code = 785-6) 28.9 28-32 [facility] SpringsAutomated erythrocyte mean corpuscular hemoglobin concentration measurement (mass/volume)2019-09-23 05:42:00* Test Item Value Reference Range Interpretation Comments Mean Corpuscular Hemoglobin Concent (test code = 786-4) 32.0 31-35 [facility] SpringsRDW RbjUd-Ggn0639-45-26 05:42:00* Test Item Value Reference Range Interpretation Comments Red Cell Distribution Width (test code = 13187-5) 13.7 11.7 -14.4 [facility] SpringsAutomated blood platelet count (count/volume)2019-09-23 05:42:00* Test Item Value Reference Range Interpretation Comments Platelet Count (test code = 777-3) 183 140-360 [facility] SpringsAutformerly [facility] hospitaled blood segmented neutrophil count as percentage of total lyrvxcwanf5976-20-27 05:42:00* Test Item Value Reference Range Interpretation Comments Neutrophils (%) (Auto) (test code = 96167-4) 78.4 38.7-80.0 [facility] SpringsAutomated blood lymphocyte count as percentage ot total qouasrtdso0270-15-34 05:42:00* Test Item Value Reference Range Interpretation Comments Lymphocytes (%) (Auto) (test code = 736-9) 13.1 18.0-39.1 [facility] SpringsAutomated blood monocyte count as percentage of total voihftfevp5383-34-86 05:42:00* Test Item Value Reference Range Interpretation Comments Monocytes (%) (Auto) (test code = 5905-5) 7.7 4.4-11.3 [facility] SpringsAutomated blood eosinophil count as percentage of total axbgwwpujs6175-51-47 05:42:00* Test Item Value Reference Range Interpretation Comments Eosinophils (%) (Auto) (test code = 713-8) 0.1 0.0-6.0 [facility] SpringsAutomated blood basophil count as percentage of total evkusksobs0996-59-39 05:42:00* Test Item Value Reference Range Interpretation Comments Basophils (%) (Auto) (test code = 706-2) 0.5 0.0-1.0 [facility] SpringsFluoroscopic procedure less than one hour ylxdwxtc8581-60-98 05:42:00* Test Item Value Reference Range Interpretation Comments IM GRANULOCYTES % (test code = IM GRANULOCYTES %) 0.2 0.0- 1.0 [facility] SpringsAutomated blood neutrophil count 2019-09-23 05:42:00* Test Item Value Reference Range Interpretation Comments Neutrophils # (Auto) (test code = 751-8) 6.8 2.1-6.9 [facility] SpringsBlood lymphocytes count (number/volume) 2019-09-23 05:42:00* Test Item Value Reference Range Interpretation Comments Lymphocytes # (Auto) (test code = 25177-5) 1.1 1.0-3.2 [facility] SpringsBlood monocytes automated count (number/volume)2019-09-23 05:42:00* Test Item Value Reference Range Interpretation Comments Monocytes # (Auto) (test code = 742-7) 0.7 0.2-0.8 [facility] SpringsAutomated blood eosinophil count 2019-09-23 05:42:00* Test Item Value Reference Range Interpretation Comments Eosinophils # (Auto) (test code = 711-2) 0.0 0.0-0.4 [facility] SpringsAutomated blood basophil count (count/volume)2019-09-23 05:42:00* Test Item Value Reference Range Interpretation Comments Basophils # (Auto) (test code = 704-7) 0.0 0.0-0.1 [facility] SpringsFluoroscopic procedure less than one hour rvncvqjn3960-01-02 05:42:00* Test Item Value Reference Range Interpretation Comments Absolute Immature Granulocyte (auto (zeenat t code = Absolute Immature Granulocyte (auto) 0.02 0-0.1 [facility] sodium measurement (moles/volume)2019-09-23 05:42:00* Test Item Value Reference Range Interpretation Comments Sodium Level (test code = 2951-2) 138 136-145 [facility] plasma potassium measurement (moles/volume)2019-09-23 05:42:00* Test Item Value Reference Range Interpretation Comments Potassium Level (test code = 2823-3) 3.6 3.5-5.1 [facility] plasma chloride measurement (moles/volume)2019-09-23 05:42:00* Test Item Value Reference Range Interpretation Comments Chloride Level (test code = 2075-0) 101 98-107 [facility] plasma carbon dioxide, total measurement (moles/volume)2019-09-23 05:42:00* Test Item Value Reference Range Interpretation Comments Carbon Dioxide Level (test code = 2028-9) 28 22-29 [facility] or plasma anion [id number] 05:42:00* Test Item Value Reference Range Interpretation Comments Anion Gap (test code = 51527-4) 12.6 8-16 [facility] or plasma urea nitrogen measurement (mass/volume)2019-09-23 05:42:00* Test Item Value Reference Range Interpretation Comments Blood Urea Nitrogen (test code = 3094-0) 22 7-26 [facility] or plasma creatinine measurement (mass/volume)2019-09-23 05:42:00* Test Item Value Reference Range Interpretation Comments Creatinine (test code = 2160-0) 1.16 0.72-1.25 [facility] or plasma urea nitrogen/creatinine mass hhmhf9562-63-70 05:42:00* Test Item Value Reference Range Interpretation Comments BUN/Creatinine Ratio (test code = 3097-3) 19 6-25 [facility] SpringsEstimated glomerular filtration rate (GFR) ehlwxrjnycksg8034-63-54 05:42:00* Test Item Value Reference Range Interpretation Comments Estimat Glomerular Filtration Rate (test code = 019202846) > 60 >60 Ranges were taken from the National Kidney Disease Education Program and the [facility] Kidney Foundation literature.Reference ranges:60 or greater: Ccppdk85-53 ( for 3 consecutive months): Chronic kidney disease 15 or less: Kidney failureCHRISTUS [facility] – [facility] SpringsGlucose ygzzdebeoyt3855-75-84 05:42:00* Test Item Value Reference Range Interpretation Comments Glucose Level (test code = UCB5493) 266 74-118 [facility] or plasma calcium measurement (mass/volume)2019-09-23 05:42:00* Test Item Value Reference Range Interpretation Comments Calcium Level (test code = 36843-5) 8.3 8.4-10.2 [facility] plasma total bilirubin measurement (mass/volume)2019-09-23 05:42:00* Test Item Value Reference Range Interpretation Comments Total Bilirubin (test code = 1975-2) 0.4 0.2-1.2 [facility] SpringsFluoroscopic procedure less than one hour yxguruuh5814-39-45 05:42:00* Test Item Value Reference Range Interpretation Comments Aspartate Amino Transf (AST/SGOT) (test code = Aspartate Amino Transf (AST/SGOT)) 14 5-34 [facility] or plasma alanine aminotransferase measurement (enzymatic activity/volume)2019-09-23 05:42:00* Test Item Value Reference Range Interpretation Comments Alanine Aminotransferase (ALT/SGPT) (test code = 1742-6) 14 0-55 [facility] or plasma protein measurement (mass/volume)2019-09-23 05:42:00* Test Item Value Reference Range Interpretation Comments Total Protein (test code = 2885-2) 6.2 6.5-8.1 [facility] plasma albumin measurement (mass/volume)2019-09-23 05:42:00* Test Item Value Reference Range Interpretation Comments Albumin (test code = 1751-7) 3.4 3.5-5.0 [facility] SpringsPlasma globulin measurement (mass/volume) 2019-09-23 05:42:00* Test Item Value Reference Range Interpretation Comments Globulin (test code = 33584-8) 2.8 2.3-3.5 [facility] plasma albumin/globulin mass uhoxj6776-59-36 05:42:00* Test Item Value Reference Range Interpretation Comments Albumin/Globulin Ratio (test code = 1759-0) 1.2 0.8-2.0 [facility] plasma alkaline phosphatase measurement (enzymatic activity/volume)2019-09-23 05:42:00* Test Item Value Reference Range Interpretation Comments Alkaline Phosphatase (test code = 6768-6) 108 40-150 [facility] SpringsBlood leukocytes automated count (number/volume)2019-09-23 05:42:00* Test Item Value Reference Range Interpretation Comments White Blood Count (test code = 6690-2) 8.62 4.8-10.8 [facility] SpringsBlood erythrocytes automated count (number/volume)2019-09-23 05:42:00* Test Item Value Reference Range Interpretation Comments Red Blood Count (test code = 789-8) 3.57 4.3-5.7 [facility] SpringsBlood hemoglobin measurement (moles/volume)2019-09-23 05:42:00* Test Item Value Reference Range Interpretation Comments Hemoglobin (test code = 28709-5) 10.3 14.0-18.0 [facility] SpringsAutomated blood hematocrit (volume fraction)2019-09-23 05:42:00* Test Item Value Reference Range Interpretation Comments Hematocrit (test code = 4544-3) 32.2 38.2-49.6 [facility] SpringsAutomated erythrocyte mean corpuscular lgedzl0375-82-01 05:42:00* Test Item Value Reference Range Interpretation Comments Mean Corpuscular Volume (test code = 787-2) 90.2 81-99 [facility] SpringsAutomated erythrocyte mean corpuscular hemoglobin (mass per erythrocyte)2019-09-23 05:42:00* Test Item Value Reference Range Interpretation Comments Mean Corpuscular Hemoglobin (test code = 785-6) 28.9 28-32 [facility] SpringsAutomated erythrocyte mean corpuscular hemoglobin concentration measurement (mass/volume)2019-09-23 05:42:00* Test Item Value Reference Range Interpretation Comments Mean Corpuscular Hemoglobin Concent (test code = 786-4) 32.0 31-35 [facility] SpringsRDW IfpIo-Vhy5051-89-26 05:42:00* Test Item Value Reference Range Interpretation Comments Red Cell Distribution Width (test code = 07960-5) 13.7 11.7 -14.4 [facility] SpringsAutomated blood platelet count (count/volume)2019-09-23 05:42:00* Test Item Value Reference Range Interpretation Comments Platelet Count (test code = 777-3) 183 140-360 [facility] count as percentage of total bbebqkogyh4763-20-94 05:42:00* Test Item Value Reference Range Interpretation Comments Neutrophils (%) (Auto) (test code = 15292-4) 78.4 38.7-80.0 [facility] SpringsAutomated blood lymphocyte count as percentage ot total mrgqkkgela8406-64-46 05:42:00* Test Item Value Reference Range Interpretation Comments Lymphocytes (%) (Auto) (test code = 736-9) 13.1 18.0-39.1 [facility]ed [facility] monocyte count as percentage of total polpijtpsq3521-62-93 05:42:00* Test Item Value Reference Range Interpretation Comments Monocytes (%) (Auto) (test code = 5905-5) 7.7 4.4-11.3 [facility] SpringsAutomated blood eosinophil count as percentage of total zvatmbbccx5124-00-78 05:42:00* Test Item Value Reference Range Interpretation Comments Eosinophils (%) (Auto) (test code = 713-8) 0.1 0.0-6.0 [facility] SpringsAutomated blood basophil count as percentage of total qduvsnbata9502-63-27 05:42:00* Test Item Value Reference Range Interpretation Comments Basophils (%) (Auto) (test code = 706-2) 0.5 0.0-1.0 [facility] SpringsFluoroscopic procedure less than one hour ywazwrcv1181-99-13 05:42:00* Test Item Value Reference Range Interpretation Comments IM GRANULOCYTES % (test code = IM GRANULOCYTES %) 0.2 0.0- 1.0 [facility] SpringsAutomated blood neutrophil count 2019-09-23 05:42:00* Test Item Value Reference Range Interpretation Comments Neutrophils # (Auto) (test code = 751-8) 6.8 2.1-6.9 [facility] SpringsBlood lymphocytes count (number/volume) 2019-09-23 05:42:00* Test Item Value Reference Range Interpretation Comments Lymphocytes # (Auto) (test code = 17833-0) 1.1 1.0-3.2 [facility] monocytes automated count (number/volume)2019-09-23 05:42:00* Test Item Value Reference Range Interpretation Comments Monocytes # (Auto) (test code = 742-7) 0.7 0.2-0.8 [facility] SpringsAutomated blood eosinophil count 2019-09-23 05:42:00* Test Item Value Reference Range Interpretation Comments Eosinophils # (Auto) (test code = 711-2) 0.0 0.0-0.4 [facility] SpringsAutomated blood basophil count (count/volume)2019-09-23 05:42:00* Test Item Value Reference Range Interpretation Comments Basophils # (Auto) (test code = 704-7) 0.0 0.0-0.1 [facility] SpringsFluoroscopic procedure less than one hour itgzyobo5037-71-18 05:42:00* Test Item Value Reference Range Interpretation Comments Absolute Immature Granulocyte (auto (zeenat t code = Absolute Immature Granulocyte (auto) 0.02 0-0.1 [facility] sodium measurement (moles/volume)2019-09-23 05:42:00* Test Item Value Reference Range Interpretation Comments Sodium Level (test code = 2951-2) 138 136-145 [facility] plasma potassium measurement (moles/volume)2019-09-23 05:42:00* Test Item Value Reference Range Interpretation Comments Potassium Level (test code = 2823-3) 3.6 3.5-5.1 [facility] plasma chloride measurement (moles/volume)2019-09-23 05:42:00* Test Item Value Reference Range Interpretation Comments Chloride Level (test code = 2075-0) 101 98-107 [facility] or plasma carbon dioxide, total measurement (moles/volume)2019-09-23 05:42:00* Test Item Value Reference Range Interpretation Comments Carbon Dioxide Level (test code = 2028-9) 28 22-29 [facility] or plasma anion tzq2162-90-75 05:42:00* Test Item Value Reference Range Interpretation Comments Anion Gap (test code = 38111-2) 12.6 8-16 [facility] or plasma urea nitrogen measurement (mass/volume)2019-09-23 05:42:00* Test Item Value Reference Range Interpretation Comments Blood Urea Nitrogen (test code = 3094-0) 22 7-26 [facility] plasma creatinine measurement (mass/volume)2019-09-23 05:42:00* Test Item Value Reference Range Interpretation Comments Creatinine (test code = 2160-0) 1.16 0.72-1.25 [facility] or plasma urea nitrogen/creatinine mass xguaa2091-85-99 05:42:00* Test Item Value Reference Range Interpretation Comments BUN/Creatinine Ratio (test code = 3097-3) 19 6-25 [facility] SpringsEstimated glomerular filtration rate (GFR) immnxvpvtnoye3132-32-93 05:42:00* Test Item Value Reference Range Interpretation Comments Estimat Glomerular Filtration Rate (test code = 776736476) > 60 >60 Ranges were taken from the National Kidney Disease Education Program and the [facility] Kidney Foundation literature.Reference ranges:60 or greater: Ldjelo52-36 ( for 3 consecutive months): Chronic kidney disease 15 or less: Kidney failureCHRIST[facility] SpringsGlucose ujzhotjsvpx5162-55-96 05:42:00* Test Item Value Reference Range Interpretation Comments Glucose Level (test code = ALY5575) 266 74-118 [facility] plasma calcium measurement (mass/volume)2019-09-23 05:42:00* Test Item Value Reference Range Interpretation Comments Calcium Level (test code = 88373-0) 8.3 8.4-10.2 [facility] plasma total bilirubin measurement (mass/volume)2019-09-23 05:42:00* Test Item Value Reference Range Interpretation Comments Total Bilirubin (test code = 1975-2) 0.4 0.2-1.2 [facility] SpringsFluoroscopic procedure less than one hour yiilsfiu3110-99-35 05:42:00* Test Item Value Reference Range Interpretation Comments Aspartate Amino Transf (AST/SGOT) (test code = Aspartate Amino Transf (AST/SGOT)) 14 5-34 [facility] or plasma alanine aminotransferase measurement (enzymatic activity/volume)2019-09-23 05:42:00* Test Item Value Reference Range Interpretation Comments Alanine Aminotransferase (ALT/SGPT) (test code = 1742-6) 14 0-55 [facility] or plasma protein measurement (mass/volume)2019-09-23 05:42:00* Test Item Value Reference Range Interpretation Comments Total Protein (test code = 2885-2) 6.2 6.5-8.1 [facility] plasma albumin measurement (mass/volume)2019-09-23 05:42:00* Test Item Value Reference Range Interpretation Comments Albumin (test code = 1751-7) 3.4 3.5-5.0 [facility] SpringsPlasma globulin measurement (mass/volume) 2019-09-23 05:42:00* Test Item Value Reference Range Interpretation Comments Globulin (test code = 01080-8) 2.8 2.3-3.5 [facility] plasma albumin/globulin mass wvebq3888-35-72 05:42:00* Test Item Value Reference Range Interpretation Comments Albumin/Globulin Ratio (test code = 1759-0) 1.2 0.8-2.0 [facility] plasma alkaline phosphatase measurement (enzymatic activity/volume)2019-09-23 05:42:00* Test Item Value Reference Range Interpretation Comments Alkaline Phosphatase (test code = 6768-6) 108 40-150 [facility] SpringsABDOMEN-1VIEW (KUB)2019-09-22 13:59:00 [facility] [address] [place] [address] Patient Name: BREE LINDSAY MR #: [id number] : 1975 Age/Sex: 43/M Req #: [id number] Adm Physician: RUSLAN CARTER MD Ordered by: RUSLAN CARTER MD Re port #: [id number] Location: [facility] Room/ Bed: [facility] Procedure: [id number] DX/ABDOMEN-1V IEW (KUB) Exam Date: 09/22/19 Exam [...] Interpretation Comments Bedside Glucose (test code = 15471-1) 179 70-120 Meter ID: [id number] [facility] HospitalCapillary [facility] glucose measurement by glucometer (mass/volume)2019-08-25 11:40:00* Test Item Value Reference Range Interpretation Comments Bedside Glucose (test code = 56795-1) 179 70-120 Meter ID: [id number] [facility] HospitalFluoroscopic procedure less than one hour rvjyambb3589-13-77 13:20:00* Test Item Value Reference Range Interpretation [...] complexity tests.Testing performed by [facility] [id number] [place], [place] [phone] Director: Yuri Perry M.D.CLIA # [id number] [facility] Fluoroscopic procedure less than one hour owcolsep1755-51-60 13:20:00* Test Item Value Reference Range Interpretation [...] complexity tests.Testing performed by [facility] [address] [phone] Director: Yuri Perry M.D.[facility] # [id number] [facility] Fluoroscopic procedure less than one hour fljpgihc4652-53-99 13:20:00* Test Item Value Reference Range Interpretation [...] complexity tests.Testing performed by [facility] [id number] [place] [address] [phone] Director: Yuri Perry M.D.CLIA # [id number] [facility] Fluoroscopic procedure less than one hour sieymtmw3238-27-76 13:20:00* Test Item Value Reference Range Interpretation [...] complexity tests.Testing performed by [facility] [address] [phone] Director: Yuri Perry M.D.CLIA # [id number] [facility] Fluoroscopic procedure less than one hour vnmqpjry5831-78-63 13:20:00* Test Item Value Reference Range Interpretation [...] complexity tests.Testing performed by [facility] [id number] [place], [place] [phone] Director: Yuri Perry M.D.AJ # [id number] Capillary blood glucose measurement by glucometer (mass/volume)2019-07-24 11:15:00* Test Item Value Reference Range Interpretation Comments Bedside Glucose (test code = 58659-4) 145 70-120 Meter ID: [id number] [facility] HospitalBlood leukocytes automated count (number/volume)2019-07-24 06:10:00* Test Item Value Reference Range Interpretation Comments White Blood Count (test code = 6690-2) 6.43 4.8-10.8 [facility] SpringsBlphillips eye institute erythrocytes automated count (number/volume)2019-07-24 06:10:00* Test Item Value Reference Range Interpretation Comments Red Blood Count (test code = 789-8) 3.29 4.3-5.7 [facility] SpringsBlood hemoglobin measurement (moles/volume)2019-07-24 06:10:00* Test Item Value Reference Range Interpretation Comments Hemoglobin (test code = 94075-3) 9.4 14.0-18.0 [facility] SpringsAutomated blood hematocrit (volume fraction)2019-07-24 06:10:00* Test Item Value Reference Range Interpretation Comments Hematocrit (test code = 4544-3) 29.7 38.2-49.6 [facility] SpringsAutomated erythrocyte mean corpuscular mncnng3585-11-23 06:10:00* Test Item Value Reference Range Interpretation Comments Mean Corpuscular Volume (test code = 787-2) 90.3 81-99 [facility] SpringsAutomated erythrocyte mean corpuscular hemoglobin (mass per erythrocyte)2019-07-24 06:10:00* Test Item Value Reference Range Interpretation Comments Mean Corpuscular Hemoglobin (test code = 785-6) 28.6 28-32 [facility] SpringsAutomated erythrocyte mean corpuscular hemoglobin concentration measurement (mass/volume)2019-07-24 06:10:00* Test Item Value Reference Range Interpretation Comments Mean Corpuscular Hemoglobin Concent (test code = 786-4) 31.6 31-35 [facility] SpringsRDW ZaqDo-Zat8314-45-26 06:10:00* Test Item Value Reference Range Interpretation Comments Red Cell Distribution Width (test code = 38569-7) 14.5 11.7 -14.4 [facility] SpringsAutomated blood platelet count (count/volume)2019-07-24 06:10:00* Test Item Value Reference Range Interpretation Comments Platelet Count (test code = 777-3) 132 140-360 [facility] SpringsAutomated blood segmented neutrophil count as percentage of total qcfgwqtphr4615-44-94 06:10:00* Test Item Value Reference Range Interpretation Comments Neutrophils (%) (Auto) (test code = 15274-1) 61.3 38.7-80.0 [facility] SpringsAutomated blood lymphocyte count as percentage ot total hhjgehdpwh3118-13-62 06:10:00* Test Item Value Reference Range Interpretation Comments Lymphocytes (%) (Auto) (test code = 736-9) 24.9 18.0-39.1 [facility] SpringsAutomated blood monocyte count as percentage of total saqpivcmeq6957-01-78 06:10:00* Test Item Value Reference Range Interpretation Comments Monocytes (%) (Auto) (test code = 5905-5) 10.0 4.4-11.3 [facility] SpringsAutomated blood eosinophil count as percentage of total tjxvkqaafi1480-85-17 06:10:00* Test Item Value Reference Range Interpretation Comments Eosinophils (%) (Auto) (test code = 713-8) 2.6 0.0-6.0 [facility] SpringsAutomated blood basophil count as percentage of total ddsextxpoa8539-71-45 06:10:00* Test Item Value Reference Range Interpretation Comments Basophils (%) (Auto) (test code = 706-2) 0.9 0.0-1.0 [facility] SpringsFluoroscopic procedure less than one hour faupzruj8995-55-33 06:10:00* Test Item Value Reference Range Interpretation Comments IM GRANULOCYTES % (test code = IM GRANULOCYTES %) 0.3 0.0- 1.0 [facility] SpringsAutomated blood neutrophil count 2019-07-24 06:10:00* Test Item Value Reference Range Interpretation Comments Neutrophils # (Auto) (test code = 751-8) 3.9 2.1-6.9 [facility] SpringsBlood lymphocytes count (number/volume) 2019-07-24 06:10:00* Test Item Value Reference Range Interpretation Comments Lymphocytes # (Auto) (test code = 85612-9) 1.6 1.0-3.2 [facility] SpringsBlphill[facility] institute monocytes automated count (number/volume)2019-07-24 06:10:00* Test Item Value Reference Range Interpretation Comments Monocytes # (Auto) (test code = 742-7) 0.6 0.2-0.8 [facility] SpringsAutomated blood eosinophil count 2019-07-24 06:10:00* Test Item Value Reference Range Interpretation Comments Eosinophils # (Auto) (test code = 711-2) 0.2 0.0-0.4 [facility] SpringsAutomated blood basophil count (count/volume)2019-07-24 06:10:00* Test Item Value Reference Range Interpretation Comments Basophils # (Auto) (test code = 704-7) 0.1 0.0-0.1 [facility] SpringsFluoroscopic procedure less than one hour snpwlvjq3293-02-11 06:10:00* Test Item Value Reference Range Interpretation Comments Absolute Immature Granulocyte (auto (zeenat t code = Absolute Immature Granulocyte (auto) 0.02 0-0.1 [facility] sodium measurement (moles/volume)2019-07-24 06:10:00* Test Item Value Reference Range Interpretation Comments Sodium Level (test code = 2951-2) 136 136-145 [facility] potassium measurement (moles/volume)2019-07-24 06:10:00* Test Item Value Reference Range Interpretation Comments Potassium Level (test code = 2823-3) 3.7 3.5-5.1 [facility] chloride measurement (moles/volume)2019-07-24 06:10:00* Test Item Value Reference Range Interpretation Comments Chloride Level (test code = 2075-0) 106 98-107 [facility] plasma carbon dioxide, total measurement (moles/volume)2019-07-24 06:10:00* Test Item Value Reference Range Interpretation Comments Carbon Dioxide Level (test code = 2028-9) 23 22-29 [facility] or plasma anion blu0418-20-57 06:10:00* Test Item Value Reference Range Interpretation Comments Anion Gap (test code = 22370-3) 10.7 8-16 [facility] plasma urea nitrogen measurement (mass/volume)2019-07-24 06:10:00* Test Item Value Reference Range Interpretation Comments Blood Urea Nitrogen (test code = 3094-0) 13 7-26 [facility] creatinine measurement (mass/volume)2019-07-24 06:10:00* Test Item Value Reference Range Interpretation Comments Creatinine (test code = 2160-0) 1.24 0.72-1.25 [facility] plasma urea nitrogen/creatinine mass rmxxq5050-71-50 06:10:00* Test Item Value Reference Range Interpretation Comments BUN/Creatinine Ratio (test code = 3097-3) 10 6-25 [facility] SpringsEstimated glomerular filtration rate (GFR) kikiubslrmece7144-54-41 06:10:00* Test Item Value Reference Range Interpretation Comments Estimat Glomerular Filtration Rate (test code = 359164949) > 60 >60 Ranges were taken from the National Kidney Disease Education Program and the [facility] Kid[facility] Foundation literature.Reference ranges:60 or greater: Svrchs06-86 ( for 3 consecutive months): Chronic kidney disease 15 or less: Kidney failureCHRISTUS [facility] SpringsGlucose dkjmbdwmyja5982-22-51 06:10:00* Test Item Value Reference Range Interpretation Comments Glucose Level (test code = LOW5888) 148 74-118 [facility] calcium measurement (mass/volume)2019-07-24 06:10:00* Test Item Value Reference Range Interpretation Comments Calcium Level (test code = 39724-7) 8.6 8.4-10.2 [facility] total bilirubin measurement (mass/volume)2019-07-24 06:10:00* Test Item Value Reference Range Interpretation Comments Total Bilirubin (test code = 1975-2) 0.5 0.2-1.2 [facility] [place] SpringsFluoroscopic procedure less than one hour [id number] 06:10:00* Test Item Value Reference Range Interpretation Comments Aspartate Amino Transf (AST/SGOT) (test code = Aspartate Amino Transf (AST/SGOT)) 14 5-34 [facility] or plasma alanine aminotransferase measurement (enzymatic activity/volume)2019-07-24 06:10:00* Test Item Value Reference Range Interpretation Comments Alanine Aminotransferase (ALT/SGPT) (test code = 1742-6) 15 0-55 [facility] or plasma protein measurement (mass/volume)2019-07-24 06:10:00* Test Item Value Reference Range Interpretation Comments Total Protein (test code = 2885-2) 6.2 6.5-8.1 [facility] plasma albumin measurement (mass/volume)2019-07-24 06:10:00* Test Item Value Reference Range Interpretation Comments Albumin (test code = 1751-7) 3.1 3.5-5.0 [facility] [place] SpringsPlasma globulin measurement (mass/volume) 2019-07-24 06:10:00* Test Item Value Reference Range Interpretation Comments Globulin (test code = 87416-1) 3.1 2.3-3.5 [facility] plasma albumin/globulin mass [id number] 06:10:00* Test Item Value Reference Range Interpretation Comments Albumin/Globulin Ratio (test code = 1759-0) 1.0 0.8-2.0 [facility] or plasma alkaline phosphatase measurement (enzymatic activity/volume)2019-07-24 06:10:00* Test Item Value Reference Range Interpretation Comments Alkaline Phosphatase (test code = 6768-6) 106 40-150 [facility] or plasma amylase measurement (enzymatic activity/volume)2019-07-24 06:10:00* Test Item Value Reference Range Interpretation Comments Amylase Level (test code = 1798-8) 36 25-125 [facility] plasma lipase measurement (enzymatic activity/volume)2019-07-24 06:10:00* Test Item Value Reference Range Interpretation Comments Lipase (test code = 3040-3) < 4 8-78 [facility] [place] SpringsBlood leukocytes automated count (number/volume)2019-07-24 06:10:00* Test Item Value Reference Range Interpretation Comments White Blood Count (test code = 6690-2) 6.43 4.8-10.8 [facility] [place] [facility]Bl[facility] erythrocytes automated count (number/volume)2019-07-24 06:10:00* Test Item Value Reference Range Interpretation Comments Red Blood Count (test code = 789-8) 3.29 4.3-5.7 [facility] [place]Blood hemoglobin measurement (moles/volume)2019-07-24 06:10:00* Test Item Value Reference Range Interpretation Comments Hemoglobin (test code = 68463-2) 9.4 14.0-18.0 [facility] [place] SpringsAutomated blood hematocrit (volume fraction)2019-07-24 06:10:00* Test Item Value Reference Range Interpretation Comments Hematocrit (test code = 4544-3) 29.7 38.2-49.6 [facility] [place] SpringsAutomated erythrocyte mean corpuscular hugfeb8452-38-01 06:10:00* Test Item Value Reference Range Interpretation Comments Mean Corpuscular Volume (test code = 787-2) 90.3 81-99 [facility] [place] SpringsAutomated erythrocyte mean corpuscular hemoglobin (mass per erythrocyte)2019-07-24 06:10:00* Test Item Value Reference Range Interpretation Comments Mean Corpuscular Hemoglobin (test code = 785-6) 28.6 28-32 [facility] [place] SpringsAutomated erythrocyte mean corpuscular hemoglobin concentration measurement (mass/volume)2019-07-24 06:10:00* Test Item Value Reference Range Interpretation Comments Mean Corpuscular Hemoglobin Concent (test code = 786-4) 31.6 31-35 [facility] [place] SpringsRDW LjsLg-Fjn4918-66-26 06:10:00* Test Item Value Reference Range Interpretation Comments Red Cell Distribution Width (test code = 45270-6) 14.5 11.7 -14.4 [facility] [place] SpringsAutomated blood platelet count (count/volume)2019-07-24 06:10:00* Test Item Value Reference Range Interpretation Comments Platelet Count (test code = 777-3) 132 140-360 [facility] [place] SpringsAutomated blood segmented neutrophil count as percentage of total cfmuoznkpc8798-13-26 06:10:00* Test Item Value Reference Range Interpretation Comments Neutrophils (%) (Auto) (test code = 47888-1) 61.3 38.7-80.0 [facility] [place] SpringsAutomated blood lymphocyte count as percentage ot total uxpsccqnuy0056-47-78 06:10:00* Test Item Value Reference Range Interpretation Comments Lymphocytes (%) (Auto) (test code = 736-9) 24.9 18.0-39.1 [facility] [place] SpringsAutomated blood monocyte count as percentage of total vkomxybdtv5095-79-27 06:10:00* Test Item Value Reference Range Interpretation Comments Monocytes (%) (Auto) (test code = 5905-5) 10.0 4.4-11.3 [facility] [place] SpringsAutomated blood eosinophil count as percentage of total fckhqfimsu6067-61-53 06:10:00* Test Item Value Reference Range Interpretation Comments Eosinophils (%) (Auto) (test code = 713-8) 2.6 0.0-6.0 [facility] [place] SpringsAutomated blood basophil count as percentage of total mysvweghie1122-69-47 06:10:00* Test Item Value Reference Range Interpretation Comments Basophils (%) (Auto) (test code = 706-2) 0.9 0.0-1.0 [facility] [place] SpringsFluoroscopic procedure less than one hour [id number] 06:10:00* Test Item Value Reference Range Interpretation Comments IM GRANULOCYTES % (test code = IM GRANULOCYTES %) 0.3 0.0- 1.0 [facility] [place] SpringsAutomated blood neutrophil count 2019-07-24 06:10:00* Test Item Value Reference Range Interpretation Comments Neutrophils # (Auto) (test code = 751-8) 3.9 2.1-6.9 [facility] [place]Blood lymphocytes count (number/volume) 2019-07-24 06:10:00* Test Item Value Reference Range Interpretation Comments Lymphocytes # (Auto) (test code = 34705-3) 1.6 1.0-3.2 [facility] [place] SpringsBlood monocytes automated count (number/volume)2019-07-24 06:10:00* Test Item Value Reference Range Interpretation Comments Monocytes # (Auto) (test code = 742-7) 0.6 0.2-0.8 [facility] [place] SpringsAutomated blood eosinophil count 2019-07-24 06:10:00* Test Item Value Reference Range Interpretation Comments Eosinophils # (Auto) (test code = 711-2) 0.2 0.0-0.4 [facility] [place] SpringsAutomated blood basophil count (count/volume)2019-07-24 06:10:00* Test Item Value Reference Range Interpretation Comments Basophils # (Auto) (test code = 704-7) 0.1 0.0-0.1 [facility] [place] SpringsFluoroscopic procedure less than one hour [id number] 06:10:00* Test Item Value Reference Range Interpretation Comments Absolute Immature Granulocyte (auto (zeenat t code = Absolute Immature Granulocyte (auto) 0.02 0-0.1 [facility] sodium measurement (moles/volume)2019-07-24 06:10:00* Test Item Value Reference Range Interpretation Comments Sodium Level (test code = 2951-2) 136 136-145 [facility] plasma potassium measurement (moles/volume)2019-07-24 06:10:00* Test Item Value Reference Range Interpretation Comments Potassium Level (test code = 2823-3) 3.7 3.5-5.1 [facility] plasma chloride measurement (moles/volume)2019-07-24 06:10:00* Test Item Value Reference Range Interpretation Comments Chloride Level (test code = 2075-0) 106 98-107 [facility] plasma carbon dioxide, total measurement (moles/volume)2019-07-24 06:10:00* Test Item Value Reference Range Interpretation Comments Carbon Dioxide Level (test code = 2028-9) 23 22-29 [facility] or plasma anion [id number] 06:10:00* Test Item Value Reference Range Interpretation Comments Anion Gap (test code = 40141-6) 10.7 8-16 [facility] or plasma urea nitrogen measurement (mass/volume)2019-07-24 06:10:00* Test Item Value Reference Range Interpretation Comments Blood Urea Nitrogen (test code = 3094-0) 13 7-26 [facility] plasma creatinine measurement (mass/volume)2019-07-24 06:10:00* Test Item Value Reference Range Interpretation Comments Creatinine (test code = 2160-0) 1.24 0.72-1.25 [facility] or plasma urea nitrogen/creatinine mass bfsdt6422-80-98 06:10:00* Test Item Value Reference Range Interpretation Comments BUN/Creatinine Ratio (test code = 3097-3) 10 6-25 [facility] [place] SpringsEstimated glomerular filtration rate (GFR) antpegimrrbeg5367-00-38 06:10:00* Test Item Value Reference Range Interpretation Comments Estimat Glomerular Filtration Rate (test code = 230547554) > 60 >60 Ranges were taken from the National Kidney Disease Education Program and the [facility] Foundation literature.Reference ranges:60 or greater: Sydnnj56-07 ( for 3 consecutive months): Chronic kidney disease 15 or less: Kidney failureCHRISTUS [facility] – [place] SpringsGlucose kbanzbpohld5428-25-92 06:10:00* Test Item Value Reference Range Interpretation Comments Glucose Level (test code = OZE0074) 148 74-118 [facility] plasma calcium measurement (mass/volume)2019-07-24 06:10:00* Test Item Value Reference Range Interpretation Comments Calcium Level (test code = 05167-1) 8.6 8.4-10.2 [facility] plasma total bilirubin measurement (mass/volume)2019-07-24 06:10:00* Test Item Value Reference Range Interpretation Comments Total Bilirubin (test code = 1975-2) 0.5 0.2-1.2 [facility] [place] SpringsFluoroscopic procedure less than one hour isaevlec2466-98-90 06:10:00* Test Item Value Reference Range Interpretation Comments Aspartate Amino Transf (AST/SGOT) (test code = Aspartate Amino Transf (AST/SGOT)) 14 5-34 [facility] or plasma alanine aminotransferase measurement (enzymatic activity/volume)2019-07-24 06:10:00* Test Item Value Reference Range Interpretation Comments Alanine Aminotransferase (ALT/SGPT) (test code = 1742-6) 15 0-55 [facility] or plasma protein measurement (mass/volume)2019-07-24 06:10:00* Test Item Value Reference Range Interpretation Comments Total Protein (test code = 2885-2) 6.2 6.5-8.1 [facility] plasma albumin measurement (mass/volume)2019-07-24 06:10:00* Test Item Value Reference Range Interpretation Comments Albumin (test code = 1751-7) 3.1 3.5-5.0 [facility] [place] SpringsPlasma globulin measurement (mass/volume) 2019-07-24 06:10:00* Test Item Value Reference Range Interpretation Comments Globulin (test code = 05909-1) 3.1 2.3-3.5 [facility] plasma albumin/globulin mass ijhhz8785-65-55 06:10:00* Test Item Value Reference Range Interpretation Comments Albumin/Globulin Ratio (test code = 1759-0) 1.0 0.8-2.0 [facility] or plasma alkaline phosphatase measurement (enzymatic activity/volume)2019-07-24 06:10:00* Test Item Value Reference Range Interpretation Comments Alkaline Phosphatase (test code = 6768-6) 106 40-150 [facility] or plasma amylase measurement (enzymatic activity/volume)2019-07-24 06:10:00* Test Item Value Reference Range Interpretation Comments Amylase Level (test code = 1798-8) 36 25-125 [facility] plasma lipase measurement (enzymatic activity/volume)2019-07-24 06:10:00* Test Item Value Reference Range Interpretation Comments Lipase (test code = 3040-3) < 4 8-78 [facility] [place] SpringsBlood leukocytes automated count (number/volume)2019-07-24 06:10:00* Test Item Value Reference Range Interpretation Comments White Blood Count (test code = 6690-2) 6.43 4.8-10.8 [facility] [place] SpringsBlood erythrocytes automated count (number/volume)2019-07-24 06:10:00* Test Item Value Reference Range Interpretation Comments Red Blood Count (test code = 789-8) 3.29 4.3-5.7 [facility] [place] SpringsBlood hemoglobin measurement (moles/volume)2019-07-24 06:10:00* Test Item Value Reference Range Interpretation Comments Hemoglobin (test code = 02163-7) 9.4 14.0-18.0 [facility] [place] SpringsAutomated blood hematocrit (volume fraction)2019-07-24 06:10:00* Test Item Value Reference Range Interpretation Comments Hematocrit (test code = 4544-3) 29.7 38.2-49.6 [facility] [place] SpringsAutomated erythrocyte mean corpuscular rstczd6537-11-02 06:10:00* Test Item Value Reference Range Interpretation Comments Mean Corpuscular Volume (test code = 787-2) 90.3 81-99 [facility] [place] SpringsAutomated erythrocyte mean corpuscular hemoglobin (mass per erythrocyte)2019-07-24 06:10:00* Test Item Value Reference Range Interpretation Comments Mean Corpuscular Hemoglobin (test code = 785-6) 28.6 28-32 [facility] [place] SpringsAutomated erythrocyte mean corpuscular hemoglobin concentration measurement (mass/volume)2019-07-24 06:10:00* Test Item Value Reference Range Interpretation Comments Mean Corpuscular Hemoglobin Concent (test code = 786-4) 31.6 31-35 [facility] [place] SpringsRDW UsoSo-Ckc9699-86-26 06:10:00* Test Item Value Reference Range Interpretation Comments Red Cell Distribution Width (test code = 14697-4) 14.5 11.7 -14.4 [facility] [place] SpringsAutomated blood platelet count (count/volume)2019-07-24 06:10:00* Test Item Value Reference Range Interpretation Comments Platelet Count (test code = 777-3) 132 140-360 [facility] [place] SpringsAutomated blood segmented neutrophil count as percentage of total iqroavbvuk7237-35-17 06:10:00* Test Item Value Reference Range Interpretation Comments Neutrophils (%) (Auto) (test code = 98546-0) 61.3 38.7-80.0 [facility] [place] SpringsAutformerly [facility] hospitaled blood lymphocyte count as percentage ot total lgqngphumx8987-15-93 06:10:00* Test Item Value Reference Range Interpretation Comments Lymphocytes (%) (Auto) (test code = 736-9) 24.9 18.0-39.1 [facility] [place] SpringsAutomated blood monocyte count as percentage of total ulednglkpr2910-61-92 06:10:00* Test Item Value Reference Range Interpretation Comments Monocytes (%) (Auto) (test code = 5905-5) 10.0 4.4-11.3 [facility] [place] SpringsAutomated blood eosinophil count as percentage of total hmjeybqhdq6638-84-37 06:10:00* Test Item Value Reference Range Interpretation Comments Eosinophils (%) (Auto) (test code = 713-8) 2.6 0.0-6.0 [facility] [place] SpringsAutomated blood basophil count as percentage of total ncbobrmgqg7257-05-67 06:10:00* Test Item Value Reference Range Interpretation Comments Basophils (%) (Auto) (test code = 706-2) 0.9 0.0-1.0 [facility] [place] SpringsFluoroscopic procedure less than one hour yfgagqpf1797-66-68 06:10:00* Test Item Value Reference Range Interpretation Comments IM GRANULOCYTES % (test code = IM GRANULOCYTES %) 0.3 0.0- 1.0 [facility] [place] SpringsAutomated blood neutrophil count 2019-07-24 06:10:00* Test Item Value Reference Range Interpretation Comments Neutrophils # (Auto) (test code = 751-8) 3.9 2.1-6.9 [facility] [place] SpringsBlood lymphocytes count (number/volume) 2019-07-24 06:10:00* Test Item Value Reference Range Interpretation Comments Lymphocytes # (Auto) (test code = 29684-9) 1.6 1.0-3.2 [facility] [place] SpringsBlood monocytes automated count (number/volume)2019-07-24 06:10:00* Test Item Value Reference Range Interpretation Comments Monocytes # (Auto) (test code = 742-7) 0.6 0.2-0.8 [facility] [place] SpringsAutomated blood eosinophil count 2019-07-24 06:10:00* Test Item Value Reference Range Interpretation Comments Eosinophils # (Auto) (test code = 711-2) 0.2 0.0-0.4 [facility] [place] SpringsAutomated blood basophil count (count/volume)2019-07-24 06:10:00* Test Item Value Reference Range Interpretation Comments Basophils # (Auto) (test code = 704-7) 0.1 0.0-0.1 [facility] [place] SpringsFluoroscopic procedure less than one hour izphbvld1767-16-14 06:10:00* Test Item Value Reference Range Interpretation Comments Absolute Immature Granulocyte (auto (zeenat t code = Absolute Immature Granulocyte (auto) 0.02 0-0.1 [facility] sodium measurement (moles/volume)2019-07-24 06:10:00* Test Item Value Reference Range Interpretation Comments Sodium Level (test code = 2951-2) 136 136-145 [facility] plasma potassium measurement (moles/volume)2019-07-24 06:10:00* Test Item Value Reference Range Interpretation Comments Potassium Level (test code = 2823-3) 3.7 3.5-5.1 [facility] plasma chloride measurement (moles/volume)2019-07-24 06:10:00* Test Item Value Reference Range Interpretation Comments Chloride Level (test code = 2075-0) 106 98-107 [facility] plasma carbon dioxide, total measurement (moles/volume)2019-07-24 06:10:00* Test Item Value Reference Range Interpretation Comments Carbon Dioxide Level (test code = 2028-9) 23 22-29 [facility] plasma anion tit1536-41-59 06:10:00* Test Item Value Reference Range Interpretation Comments Anion Gap (test code = 01434-5) 10.7 8-16 [facility] plasma urea nitrogen measurement (mass/volume)2019-07-24 06:10:00* Test Item Value Reference Range Interpretation Comments Blood Urea Nitrogen (test code = 3094-0) 13 7-26 [facility] plasma creatinine measurement (mass/volume)2019-07-24 06:10:00* Test Item Value Reference Range Interpretation Comments Creatinine (test code = 2160-0) 1.24 0.72-1.25 [facility] or plasma urea nitrogen/creatinine mass rqtev6362-59-74 06:10:00* Test Item Value Reference Range Interpretation Comments BUN/Creatinine Ratio (test code = 3097-3) 10 6-25 [facility] [place] SpringsEstimated glomerular filtration rate (GFR) oavltrzxgbybm3495-32-11 06:10:00* Test Item Value Reference Range Interpretation Comments Estimat Glomerular Filtration Rate (test code = 610918546) > 60 >60 Ranges were taken from the National Kidney Disease Education Program and the [facility] Kidney Foundation literature.Reference ranges:60 or greater: Jthtbx72-75 ( for 3 consecutive months): Chronic kidney disease 15 or less: Kidney failureCHRISTUS [facility] – [place] SpringsGlucose tktjtasfmea0551-88-32 06:10:00* Test Item Value Reference Range Interpretation Comments Glucose Level (test code = MCJ8182) 148 74-118 [facility] plasma calcium measurement (mass/volume)2019-07-24 06:10:00* Test Item Value Reference Range Interpretation Comments Calcium Level (test code = 26270-9) 8.6 8.4-10.2 [facility] plasma total bilirubin measurement (mass/volume)2019-07-24 06:10:00* Test Item Value Reference Range Interpretation Comments Total Bilirubin (test code = 1975-2) 0.5 0.2-1.2 [facility] [place] SpringsFluoroscopic procedure less than one hour lnncuoqo2697-88-98 06:10:00* Test Item Value Reference Range Interpretation Comments Aspartate Amino Transf (AST/SGOT) (test code = Aspartate Amino Transf (AST/SGOT)) 14 5-34 [facility] plasma alanine aminotransferase measurement (enzymatic activity/volume)2019-07-24 06:10:00* Test Item Value Reference Range Interpretation Comments Alanine Aminotransferase (ALT/SGPT) (test code = 1742-6) 15 0-55 [facility] plasma protein measurement (mass/volume)2019-07-24 06:10:00* Test Item Value Reference Range Interpretation Comments Total Protein (test code = 2885-2) 6.2 6.5-8.1 [facility] plasma albumin measurement (mass/volume)2019-07-24 06:10:00* Test Item Value Reference Range Interpretation Comments Albumin (test code = 1751-7) 3.1 3.5-5.0 [facility] [place] SpringsPlasma globulin measurement (mass/volume) 2019-07-24 06:10:00* Test Item Value Reference Range Interpretation Comments Globulin (test code = 13325-7) 3.1 2.3-3.5 [facility] plasma albumin/globulin mass zufmn8042-10-23 06:10:00* Test Item Value Reference Range Interpretation Comments Albumin/Globulin Ratio (test code = 1759-0) 1.0 0.8-2.0 [facility] plasma alkaline phosphatase measurement (enzymatic activity/volume)2019-07-24 06:10:00* Test Item Value Reference Range Interpretation Comments Alkaline Phosphatase (test code = 6768-6) 106 40-150 [facility] plasma amylase measurement (enzymatic activity/volume)2019-07-24 06:10:00* Test Item Value Reference Range Interpretation Comments Amylase Level (test code = 1798-8) 36 25-125 [facility] plasma lipase measurement (enzymatic activity/volume)2019-07-24 06:10:00* Test Item Value Reference Range Interpretation Comments Lipase (test code = 3040-3) < 4 8-78 [facility] or plasma amylase measurement (enzymatic activity/volume)2019-07-24 06:10:00* Test Item Value Reference Range Interpretation Comments Amylase Level (test code = 1798-8) 36 25-125 [facility] plasma lipase measurement (enzymatic activity/volume)2019-07-24 06:10:00* Test Item Value Reference Range Interpretation Comments Lipase (test code = 3040-3) < 4 8-78 [facility] plasma amylase measurement (enzymatic activity/volume)2019-07-24 06:10:00* Test Item Value Reference Range Interpretation Comments Amylase Level (test code = 1798-8) 36 25-125 [facility] plasma lipase measurement (enzymatic activity/volume)2019-07-24 06:10:00* Test Item Value Reference Range Interpretation Comments Lipase (test code = 3040-3) < 4 8-78 [facility] [place] SpringsFluoroscopic procedure less than one hour molqgkhh5553-92-48 12:20:00* Test Item Value Reference Range Interpretation Comments Hemoglobin A1c Percent (test code = Hemoglobin A1c Percent) 8.4 4.0-7.0 [facility] [place] SpringsFluoroscopic procedure less than one hour nwlwjnad2470-26-67 12:20:00* Test Item Value Reference Range Interpretation Comments Lactic Acid Level (test code = Lactic Acid Level) 0.8 0.5- 2.0 [facility] [place] SpringsFluoroscopic procedure less than one hour otzcbfls3613-12-48 12:20:00* Test Item Value Reference Range Interpretation Comments Hemoglobin A1c Percent (test code = Hemoglobin A1c Percent) 8.4 4.0-7.0 [facility] [place] SpringsFluoroscopic procedure less than one hour cbfvwimh9257-95-34 12:20:00* Test Item Value Reference Range Interpretation Comments Lactic Acid Level (test code = Lactic Acid Level) 0.8 0.5- 2.0 [facility] [place] SpringsFluoroscopic procedure less than one hour fttcpbbp0781-32-59 12:20:00* Test Item Value Reference Range Interpretation Comments Hemoglobin A1c Percent (test code = Hemoglobin A1c Percent) 8.4 4.0-7.0 [facility] [place] SpringsFluoroscopic procedure less than one hour dzgneoop1809-69-28 12:20:00* Test Item Value Reference Range Interpretation Comments Lactic Acid Level (test code = Lactic Acid Level) 0.8 0.5- 2.0 [facility] [place] SpringsFluoroscopic procedure less than one hour cebwyvuq1737-70-13 12:20:00* Test Item Value Reference Range Interpretation Comments Hemoglobin A1c Percent (test code = Hemoglobin A1c Percent) 8.4 4.0-7.0 [facility] [place] SpringsFluoroscopic procedure less than one hour dotnlfgw6640-49-36 12:20:00* Test Item Value Reference Range Interpretation Comments Lactic Acid Level (test code = Lactic Acid Level) 0.8 0.5- 2.0 [facility] [place] SpringsFluoroscopic procedure less than one hour ksvdsrwg7224-83-15 12:20:00* Test Item Value Reference Range Interpretation Comments Hemoglobin A1c Percent (test code = Hemoglobin A1c Percent) 8.4 4.0-7.0 [facility] [place] SpringsFluoroscopic procedure less than one hour uhussvov5063-29-14 12:20:00* Test Item Value Reference Range Interpretation Comments Lactic Acid Level (test code = Lactic Acid Level) 0.8 0.5- 2.0 [facility] SpringsFluoroscopic procedure less than one hour yxtotjbq7725-01-91 12:20:00* Test Item Value Reference Range Interpretation Comments Hemoglobin A1c Percent (test code = Hemoglobin A1c Percent) 8.4 4.0-7.0 [facility] SpringsFluoroscopic procedure less than one hour ijbzvjnu2904-21-21 12:20:00* Test Item Value Reference Range Interpretation Comments Hemoglobin A1c Percent (test code = Hemoglobin A1c Percent) 8.4 4.0-7.0 [facility] SpringsCT ABD/PEL WO PWDLFGCY-[id number] 06:46:00 [facility] [address] [address] Patient Name: BREE LINDSAY MR #: [id number] : 1975 Age/Sex: 43/M Req #: [id number] Adm Physician: Ordered by: NEIL PEREZ MD Report #: [id number] Location: [facility] Room/Bed: Procedure: [id number] HOPD/CT ABD/PEL WO CONTRAST-HOPD Exam Date: 07/23/19 [...] COPY TO: NEIL PEREZ MD Bacterial blood yciusul8423-59-60 06:44:00* Test Item Value Reference Range Interpretation Comments Blood Culture (test code = 600-7) STAPHYLOCOCCUS SP COAG NEG [facility] SpringsBacterial blood bdowbak2354-04-14 06:44:00* Test Item Value Reference Range Interpretation Comments Blood Culture (test code = 600-7) STAPHYLOCOCCUS SP COAG NEG [facility] SpringsBacterial blood phbqvxd3172-40-82 06:44:00* Test Item Value Reference Range Interpretation Comments Blood Culture (test code = 600-7) STAPHYLOCOCCUS SP COAG NEG [facility] SpringsBacterial blood prhjgmc2284-86-31 06:44:00* Test Item Value Reference Range Interpretation Comments Blood Culture (test code = 600-7) STAPHYLOCOCCUS SP COAG NEG [facility] SpringsBacterial blood vaafxhr0823-02-55 06:44:00* Test Item Value Reference Range Interpretation Comments Blood Culture (test code = 600-7) STAPHYLOCOCCUS SP COAG NEG [facility] SpringsBapreria blood dlfcyqc3535-49-17 06:44:00* Test Item Value Reference Range Interpretation Comments Blood Culture (test code = 600-7) STAPHYLOCOCCUS SP COAG NEG [facility] SpringsBacteria blood tczzttr1392-47-23 06:44:00* Test Item Value Reference Range Interpretation Comments Blood Culture (test code = 600-7) STAPHYLOCOCCUS SP COAG NEG [facility] SpringsBacteria blood djgcdvm5834-87-47 06:44:00* Test Item Value Reference Range Interpretation Comments Blood Culture (test code = 600-7) STAPHYLOCOCCUS SP COAG NEG [facility] gqsumiw9968-76-15 06:44:00* Test Item Value Reference Range Interpretation Comments Blood Culture (test code = 600-7) STAPHYLOCOCCUS SP COAG NEG [facility]eria blood faqgbzx9204-26-91 06:44:00* Test Item Value Reference Range Interpretation Comments Blood Culture (test code = 600-7) STAPHYLOCOCCUS SP COAG [facility] 1 VEW - [id number] 06:44:00 [facility] [address] [place] [address] Patient Name: BREE LINDSAY MR #: [id number] : 1975 Age/Sex: 43/M Req #: [id number] Adm Physician: Ordered by: NEIL PEREZ MD Report #: [id number] Location: [facility] Room/Bed: Procedure: [id number] HOPD/CXR 1 VEW - HOPD Exam Date: [...] MD 5 Transcribe d By: PAULA on 07/23/1946 COPY TO: NEIL PEREZ MD Blood cjpveld2754-13-58 06:05:00* Test Item Value Reference Range Interpretation Comments Blood Culture (test code = 75566828) NO GROWTH AFTER 5 DAYS, FINAL REPORT [facility] bpsjcop2877-94-52 06:05:00* Test Item Value Reference Range Interpretation Comments Blood Culture (test code = 57901130) NO GROWTH AFTER 5 DAYS, FINAL [facility]PORT [facility] uvzanaw9039-07-81 06:05:00* Test Item Value Reference Range Interpretation Comments Blood Culture (test code = 05623871) NO GROWTH AFTER 5 DAYS, FINAL REPORT [facility] ffxirvh3946-58-23 06:05:00* Test Item Value Reference Range Interpretation Comments Blood Culture (test code = 58743468) NO GROWTH AFTER 5 DAYS, FINAL REPORT [facility] eqrnavr5446-92-33 06:05:00* Test Item Value Reference Range Interpretation Comments Blood Culture (test code = 11057492) NO GROWTH AFTER 5 DAYS, FINAL REPORT [facility] zayxyed2904-83-54 06:05:00* Test Item Value Reference Range Interpretation Comments Blood Culture (test code = 70202292) NO GROWTH AFTER 5 DAYS, FINAL REPORT [facility] SpringsBedside Eddfooi0376-47-18 08:12:00* Test Item Value Reference Range Interpretation Comments Bedside Glucose (test code = 37637-5) 120 70-120 Meter ID: [id number] Health Allenodium Level 2019-07-10 07:06:00* Test Item Value Reference Range Interpretation Comments Sodium Level (test code = 2951-2) 139 136-145 [facility] SpringsPotassium Aifia2965-06-38 07:06:00* Test Item Value Reference Range Interpretation Comments Potassium Level (test code = 2823-3) 3.3 3.5-5.1 L [facility] SpringsChloride Tpagl7299-49-72 07:06:00* Test Item Value Reference Range Interpretation Comments Chloride Level (test code = 2075-0) 102 98-107 [facility] SpringsCarbon Dioxide Olraa3634-56-93 07:06:00* Test Item Value Reference Range Interpretation Comments Carbon Dioxide Level (test code = 2028-9) 28 22-29 [facility] SpringsAnion Rjy1571-41-72 07:06:00* Test Item Value Reference Range Interpretation Comments Anion Gap (test code = 47007-4) 12.3 8-16 [facility] SpringsBlood Urea Tjshqtck8899-58-94 07:06:00* Test Item Value Reference Range Interpretation Comments Blood Urea Nitrogen (test code = 3094-0) 31 7-26 H [facility] SpringsCreatinine2020-04-12 07:06:00* Test Item Value Reference Range Interpretation Comments Creatinine (test code = 2160-0) 1.55 0.72-1.25 H [facility] SpringsBUN/Creatinine Ippaa7921-74-68 07:06:00* Test Item Value Reference Range Interpretation Comments BUN/Creatinine Ratio (test code = 3097-3) 20 6-25 [facility] SpringsEstimat Glomerular Filtration Rate 2019-07-10 07:06:00* Test Item Value Reference Range Interpretation Comments Estimat Glomerular Filtration Rate (test code = 591765817) 60 >60 Ranges were taken from the National Kidney Disease Education Program and the [facility] literature.Reference ranges:60 or greater: Iijuke50-21 ( for 3 consecutive months): Chronic kidney disease 15 or less: Kidney failureCHRISTUS [facility] – Sulphur SpringsGlucose Ukihr8737-95-81 07:06:00* Test Item Value Reference Range Interpretation Comments Glucose Level (test code = NZZ8686) 92 74-118 [facility] SpringsCalcium Mqzey3078-14-07 07:06:00* Test Item Value Reference Range Interpretation Comments Calcium Level (test code = 71640-9) 8.1 8.4-10.2 L [facility] SpringsMagnesium Peucw7696-43-62 06:53:00* Test Item Value Reference Range Interpretation Comments Magnesium Level (test code = 72264-8) 1.8 1.3-2.1 [facility] SpringsWhite Blood Ewmkp2191-34-42 06:24:00* Test Item Value Reference Range Interpretation Comments White Blood Count (test code = 6690-2) 8.09 4.8-10.8 [facility] SpringsRed Blood Trmyy9902-32-81 06:24:00* Test Item Value Reference Range Interpretation Comments Red Blood Count (test code = 789-8) 3.66 4.3-5.7 L [facility] SpringsHemoglobin2020-04-12 06:24:00* Test Item Value Reference Range Interpretation Comments Hemoglobin (test code = 56462-9) 10.1 14.0-18.0 L [facility] SpringsHematocrit2020-04-12 06:24:00* Test Item Value Reference Range Interpretation Comments Hematocrit (test code = 4544-3) 32.4 38.2-49.6 L [facility] SpringsMean Corpuscular Uygqoe3982-96-97 06:24:00* Test Item Value Reference Range Interpretation Comments Mean Corpuscular Volume (test code = 787-2) 88.5 81-99 [facility] SpringsMean Corpuscular Oznyfiyrvj8335-03-44 06:24:00* Test Item Value Reference Range Interpretation Comments Mean Corpuscular Hemoglobin (test code = 785-6) 27.6 28-32 L [facility] SpringsMean Corpuscular Hemoglobin Concent 2019-07-10 06:24:00* Test Item Value Reference Range Interpretation Comments Mean Corpuscular Hemoglobin Concent (test code = 786-4) 31.2 31-35 [facility] SpringsRed Cell Distribution Rgbmz4238-89-53 06:24:00* Test Item Value Reference Range Interpretation Comments Red Cell Distribution Width (test code = 23123-0) 13.8 11.7 -14.4 [facility] SpringsPlatelet Jmnhx6850-16-80 06:24:00* Test Item Value Reference Range Interpretation Comments Platelet Count (test code = 777-3) 191 140-360 [facility] SpringsNeutrophils (%) (Auto)2019-07-10 06:24:00 * Test Item Value Reference Range Interpretation Comments Neutrophils (%) (Auto) (test code = 47948-1) 61.6 38.7-80.0 [facility] SpringsLymphocytes (%) (Auto)2019-07-10 06:24:00 * Test Item Value Reference Range Interpretation Comments Lymphocytes (%) (Auto) (test code = 736-9) 26.7 18.0-39.1 [facility] SpringsMonocytes (%) (Auto)2019-07-10 06:24:00* Test Item Value Reference Range Interpretation Comments Monocytes (%) (Auto) (test code = 5905-5) 10.3 4.4-11.3 [facility] SpringsEosinophils (%) (Auto)2019-07-10 06:24:00 * Test Item Value Reference Range Interpretation Comments Eosinophils (%) (Auto) (test code = 713-8) 0.6 0.0-6.0 [facility] SpringsBasophils (%) (Auto)2019-07-10 06:24:00* Test Item Value Reference Range Interpretation Comments Basophils (%) (Auto) (test code = 706-2) 0.6 0.0-1.0 [facility] SpringsIM GRANULOCYTES %2019-07-10 06:24:00* Test Item Value Reference Range Interpretation Comments IM GRANULOCYTES % (test code = IM GRANULOCYTES %) 0.2 0.0- 1.0 [facility] SpringsNeutrophils # (Auto)2019-07-10 06:24:00* Test Item Value Reference Range Interpretation Comments Neutrophils # (Auto) (test code = 751-8) 5.0 2.1-6.9 [facility] SpringsLymphocytes # (Auto)2019-07-10 06:24:00* Test Item Value Reference Range Interpretation Comments Lymphocytes # (Auto) (test code = 68151-4) 2.2 1.0-3.2 [facility] SpringsMonocytes # (Auto)2019-07-10 06:24:00* Test Item Value Reference Range Interpretation Comments Monocytes # (Auto) (test code = 742-7) 0.8 0.2-0.8 [facility] SpringsEosinophils # (Auto)2019-07-10 06:24:00* Test Item Value Reference Range Interpretation Comments Eosinophils # (Auto) (test code = 711-2) 0.1 0.0-0.4 [facility] SpringsBasophils # (Auto)2019-07-10 06:24:00* Test Item Value Reference Range Interpretation Comments Basophils # (Auto) (test code = 704-7) 0.1 0.0-0.1 [facility] SpringsAbsolute Immature Granulocyte (auto 2019-07-10 06:24:00* Test Item Value Reference Range Interpretation Comments Absolute Immature Granulocyte (auto (zeenat t code = Absolute Immature Granulocyte (auto) 0.02 0-0.1 [facility] or plasma magnesium measurement (mass/volume)2019-07-10 05:32:00* Test Item Value Reference Range Interpretation Comments Magnesium Level (test code = 22213-1) 1.8 1.3-2.1 [facility]um or plasma magnesium measurement (mass/volume)2019-07-10 05:32:00* Test Item Value Reference Range Interpretation Comments Magnesium Level (test code = 23578-0) 1.8 1.3-2.1 [facility]um or plasma magnesium measurement (mass/volume)2019-07-10 05:32:00* Test Item Value Reference Range Interpretation Comments Magnesium Level (test code = 80466-8) 1.8 1.3-2.1 [facility] or plasma magnesium measurement (mass/volume)2019-07-10 05:32:00* Test Item Value Reference Range Interpretation Comments Magnesium Level (test code = 86084-2) 1.8 1.3-2.1 [facility] or plasma magnesium measurement (mass/volume)2019-07-10 05:32:00* Test Item Value Reference Range Interpretation Comments Magnesium Level (test code = 75887-6) 1.8 1.3-2.1 [facility] or plasma magnesium measurement (mass/volume)2019-07-10 05:32:00* Test Item Value Reference Range Interpretation Comments Magnesium Level (test code = 86647-1) 1.8 1.3-2.1 [facility] or plasma magnesium measurement (mass/volume)2019-07-10 05:32:00* Test Item Value Reference Range Interpretation Comments Magnesium Level (test code = 55386-0) 1.8 1.3-2.1 [facility] or plasma magnesium measurement (mass/volume)2019-07-10 05:32:00* Test Item Value Reference Range Interpretation Comments Magnesium Level (test code = 64277-8) 1.8 1.3-2.1 [facility] or plasma magnesium measurement (mass/volume)2019-07-10 05:32:00* Test Item Value Reference Range Interpretation Comments Magnesium Level (test code = 24715-4) 1.8 1.3-2.1 [facility]um or plasma magnesium measurement (mass/volume)2019-07-10 05:32:00* Test Item Value Reference Range Interpretation Comments Magnesium Level (test code = 92940-7) 1.8 1.3-2.1 [facility] SpringsGLUBED2020-02-10 08:55:00* Test Item Value Reference Range Interpretation Comments GLUBED (test code = GLUBED) 122 mg/dL 74-106 H Performed by certified blanker operator at [facility] NYLGYS9872-55-41 08:43:00* Test Item Value Reference Range Interpretation Comments GLUBED (test code = GLUBED) 140 mg/dL 74-106 H Performed by certified blanker operator at [facility] - XR SHOULDER 1 V [id number] 13:41:00 FAX: Jg Astudillo MD [phone] [place]: St: REG FAX: Riley Zavala DO [phone] Name: DAISHABREE [facility] : 1975 Age/S: 43/M [address] [place] [address] Unit #: [id number] Loc: [place] [address] Phys: Jg Astudillo MD Acct: [id number] Dis Date: Status: REG CLI PHONE #: [phone] Exam Date: 03/02/2019 1333 FAX #: [phone] Reason: PICC PLACEMENT EXAMS: CPT CODE: [id number] XR SHOULDER 1 V LT 23725 1 VIEW LEFT SHOULDER HISTORY: PICC line pl acement.. Left upper extremity PICC line present. Catheter tip pr ojects over the level of the inferior 3rd of the SVC. END IMPRESSION SL: [id number] at 1341 Reported and sig lizette by: Yusuf Burgos M.D. CC: Jg Astudillo MD; Zak Beckman DO Technologist: Ariane Xiong RT(R) Trnscrd Date/Time/By: 03/02/2019 (5421) : By: MilaRTB Orig Print D/T: S: 03/02/2019 (0994) PAGE 1 Signed Report [id number] 08:06:00* Test Item Value Reference Range Interpretation Comments GLUBED (test code = GLUBED) 224 mg/dL 74-106 H Performed by certified blanker operator at [facility] RWTFLL6868-55-36 22:57:00* Test Item Value Reference Range Interpretation Comments GLUBED (test code = GLUBED) 62 mg/dL 74-106 L Performed by certified blanker operator at [facility] VFNDUS7478-45-52 18:14:00* Test Item Value Reference Range Interpretation Comments GLUBED (test code = GLUBED) 158 mg/dL 74-106 H Performed by certified blanker operator at [facility] NYYVWV7624-06-14 11:43:00* Test Item Value Reference Range Interpretation Comments GLUBED (test code = GLUBED) 123 mg/dL 74-106 H Performed by certified blanker operator at [facility] BASIC METABOLIC AHNXT2244-46-70 11:04:00* Test Item Value Reference Range Interpretation [...] CA) 8.5 mg/dL 8.5-10.1 N BASIC METABOLIC DSCSX7369-26-57 10:55:00* Test Item Value Reference Range Interpretation [...] code = CA) mg/dL 8.5-10.1 CBC W/AUTO [id number] 10:13:00* Test Item Value Reference Range Interpretation [...] code = NRBC#) 0.00 K/mm3 0.0-0.1 N [id number] 08:19:00* Test Item Value Reference Range Interpretation Comments GLUBED (test code = GLUBED) 81 mg/dL 74-106 N Performed by certified blanker operator at [facility] FBQNZS4833-28-11 22:30:00* Test Item Value Reference Range Interpretation Comments GLUBED (test code = GLUBED) 243 mg/dL 74-106 H Performed by certified blanker operator at [facility] EHBVAP0519-73-49 17:17:00* Test Item Value Reference Range Interpretation Comments GLUBED (test code = GLUBED) 91 mg/dL 74-106 N Performed by certified blanker operator at [facility] BLOOD UREA TIURURHV7573-44-28 13:49:00* Test Item Value Reference Range Interpretation Comments BLOOD UREA NITROGEN (test code = BUN) 8 mg/dL 7-18 N 2 PHELBS GONE UP AND TRIED TO DRAW BLOOD PT SAID COME BACKINFORMED PAIGE LIU E4812 V.LAB.KP2 02/19/19 1037 IHNEYAUOIK0293-31-49 13:49:00* Test Item Value Reference Range Interpretation Comments CREATININE (test code = CREAT) 0.90 mg/dL 0.7-1.3 N 2 PHELBS GONE UP AND TRIED TO DRAW BLOOD PT SAID COME BACKINFORMED PAIGE LUI E4812 V.LAB.[facility] 02/19/19 1037 CBC W/AUTO [id number] 13:02:00* Test Item Value Reference Range Interpretation [...] PT TO COME BACK LATER NOTIFIED PAIGE ALANISKP211// 9720OQMMNI9244-27-07 11:50:00* Test Item Value Reference Range Interpretation Comments GLUBED (test code = GLUBED) 147 mg/dL 74-106 H Performed by certified blanker operator at [facility] KNDEUK7837-33-05 10:37:00* Test Item Value Reference Range Interpretation Comments GLUBED (test code = GLUBED) 97 mg/dL 74-106 N Performed by certified blanker operator at [facility] PWRIGY8566-38-98 21:43:00* Test Item Value Reference Range Interpretation Comments GLUBED (test code = GLUBED) 162 mg/dL 74-106 H Performed by certified blanker operator at [facility] TPVRZT3218-80-57 16:06:00* Test Item Value Reference Range Interpretation Comments GLUBED (test code = GLUBED) 98 mg/dL 74-106 N Performed by certified blanker operator at [facility] - XR CHEST 1 [id number] 14:36:00 FAX: Olegario Diaz MD [phone] [place]: B St: [facility] FAX: Iris Liao [phone] FAX: Riley Zavala DO [phone] Name: BREE LINDSAY [facility] : 1975 Age/S: 43/M [address] Unit #: [id number] Loc: V.3070 [place] [address] Phys: Iris Liao NP Acct: [id number] Dis Date: Status: ADM IN ONE #: [phone] Exam Date: 02/18/2019 1339 FAX #: [phone] Reason: PICC TIP CONFIRMATION EXAMS: CPT CODE: [id number] XR CHEST 1 V 62935 REASON FOR EXAM: PICC TIP CONFIRMATION Exam [...] new finding from the prior exam. Location: [facility] Electronically Signed by Mulugeta Espinoza MD on at 1436 Reported and signed by: Mulugeta Espinoza MD CC: Olegario Diaz MD; Iris Liao NP; Riley Beckman DO Technologist: Ngozi LYON(R); Lucie Martinez(R) Trnscrd Date/Time/By: 01/29 (1436) : By: [email or web address] Orig Print D/T: S: 02/18/2019 (2740) PAGE 1 Signed Report [id number] 12:20:00* Test Item Value Reference Range Interpretation Comments GLUBED (test code = GLUBED) 141 mg/dL 74-106 H Performed by certified blanker operator at [facility] QDNUZO8808-54-30 07:15:00* Test Item Value Reference Range Interpretation Comments GLUBED (test code = GLUBED) 129 mg/dL 74-106 H Performed by certified blanker operator at [facility] PCQKBF1542-84-08 00:21:00* Test Item Value Reference Range Interpretation Comments GLUBED (test code = GLUBED) 166 mg/dL 74-106 H Performed by certified blanker operator at [facility] ZKRSCP7857-73-03 20:50:00* Test Item Value Reference Range Interpretation Comments GLUBED (test code = GLUBED) 194 mg/dL 74-106 H Performed by certified blanker operator at [facility] SZTVMLKIRD7162-95-18 18:19:00* Test Item Value Reference Range Interpretation Comments VANCOMYCIN (test code = VANCO) 25.9 UG/ML 5.0-45.0 N [id number] 16:41:00* Test Item Value Reference Range Interpretation Comments GLUBED (test code = GLUBED) 223 mg/dL 74-106 H Performed by certified blanker operator at [facility] NXNZDH5501-92-54 13:22:00* Test Item Value Reference Range Interpretation Comments GLUBED (test code = GLUBED) 95 mg/dL 74-106 N Performed by certified blanker operator at [facility] [id number] 13:22:00* Test Item Value Reference Range Interpretation Comments GLUBED (test code = GLUBED) 61 mg/dL 74-106 L Performed by certified blanker operator at [facility] [id number] 13:22:00* Test Item Value Reference Range Interpretation Comments GLUBED (test code = GLUBED) 32 mg/dL 74-106 LL Test performed as P.O.C. by nursing staff.Performed by certified blanker operator at [facility] KIQEVU3103-26-97 13:22:00* Test Item Value Reference Range Interpretation Comments GLUBED (test code = GLUBED) 28 mg/dL 74-106 LL Test performed as P.O.C. by nursing staff.[facility] HospitalDoctor Notified~ [id number] 11:50:00* Test Item Value Reference Range Interpretation Comments GLUBED (test code = GLUBED) 104 mg/dL 74-106 N Performed by certified blanker operator at [facility] CBC W/MANUAL [id number] 09:27:00* Test Item Value Reference Range Interpretation [...] code = IMMAT) 0 % 0-0 N [id number] 07:51:00* Test Item Value Reference Range Interpretation Comments GLUBED (test code = GLUBED) 244 mg/dL 74-106 H Performed by certified blanker operator at [facility] BASIC METABOLIC [id number] 07:23:00* Test Item Value Reference Range Interpretation [...] CA) 7.9 mg/dL 8.5-10.1 L BASIC METABOLIC [id number] 07:13:00* Test Item Value Reference Range Interpretation [...] code = CA) mg/dL 8.5-10.1 CBC W/MANUAL [id number] 07:10:00* Test Item Value Reference Range Interpretation [...] MORPHOLOGY (test code = PLTMORPH) CBC W/MANUAL [id number] 07:10:00* Test Item Value Reference Range Interpretation [...] MORPHOLOGY (test code = PLTMORPH) CBC W/MANUAL [id number] 07:10:00* Test Item Value Reference Range Interpretation [...] MORPHOLOGY (test code = PLTMORPH) CBC W/MANUAL [id number] 07:09:00* Test Item Value Reference Range Interpretation [...] MORPHOLOGY (test code = PLTMORPH) CBC W/MANUAL [id number] 07:09:00* Test Item Value Reference Range Interpretation [...] MORPHOLOGY (test code = PLTMORPH) SED RATE [id number] 21:42:00* Test Item Value Reference Range Interpretation Comments SED RATE WESTERGREN (test code = SEDW) 76 mm/hr 0-15 H SED [id number] 21:42:00* Test Item Value Reference Range Interpretation Comments SED RATE (test code = SEDW) 76 mm/hr 0-15 H WINTROBE METHOD: NORMAL RANGE FOR MEN: 0-9 MM/HR WOMAN: 0-20 MM/HR [id number] 20:54:00* Test Item Value Reference Range Interpretation Comments GLUBED (test code = GLUBED) 345 mg/dL 74-106 H Performed by certified blanker operator at [facility] MEQLCE8001-59-91 16:36:00* Test Item Value Reference Range Interpretation Comments GLUBED (test code = GLUBED) 37 mg/dL 74-106 LL Performed by certified blanker operator at [facility] YKEAZR9361-25-16 16:30:00* Test Item Value Reference Range Interpretation Comments GLUBED (test code = GLUBED) 94 mg/dL 74-106 N Performed by certified blanker operator at [facility] [id number] 12:04:00* Test Item Value Reference Range Interpretation Comments GLUBED (test code = GLUBED) 236 mg/dL 74-106 H Performed by certified blanker operator at [facility] CBC W/MANUAL [id number] 08:49:00* Test Item Value Reference Range Interpretation [...] IMMAT) 0 % 0-0 N BASIC METABOLIC [id number] 08:29:00* Test Item Value Reference Range Interpretation [...] CA) 7.9 mg/dL 8.5-10.1 L CBC W/MANUAL [id number] 08:09:00* Test Item Value Reference Range Interpretation [...] MORPHOLOGY (test code = PLTMORPH) CBC W/MANUAL [id number] 08:09:00* Test Item Value Reference Range Interpretation [...] MORPHOLOGY (test code = PLTMORPH) CBC W/MANUAL [id number] 08:09:00* Test Item Value Reference Range Interpretation [...] MORPHOLOGY (test code = PLTMORPH) CBC W/MANUAL [id number] 08:09:00* Test Item Value Reference Range Interpretation [...] MORPHOLOGY (test code = PLTMORPH) CBC W/MANUAL [id number] 08:09:00* Test Item Value Reference Range Interpretation [...] PLTEST) PLATELET MORPHOLOGY (test code = PLTMORPH) [id number] 07:33:00* Test Item Value Reference Range Interpretation Comments GLUBED (test code = GLUBED) 315 mg/dL 74-106 H Performed by certified blanker operator at [facility] [id number] 19:56:00* Test Item Value Reference Range Interpretation Comments GLUBED (test code = GLUBED) 90 mg/dL 74-106 N Performed by certified blanker operator at [facility] [id number] 19:07:00* Test Item Value Reference Range Interpretation Comments GLUBED (test code = GLUBED) 107 mg/dL 74-106 H Performed by certified blanker operator at [facility] [id number] 19:07:00* Test Item Value Reference Range Interpretation Comments GLUBED (test code = GLUBED) 49 mg/dL 74-106 LL [facility] certified blanker [facility]~ [id number] 17:50:00* Test Item Value Reference Range Interpretation Comments POTASSIUM (test code = K) 3.0 mmol/L 3.5-5.1 L RE SULT VERIFIED BY REPEAT ANALYSIS [id number] 17:08:00* Test Item Value Reference Range Interpretation Comments GLUBED (test code = GLUBED) 66 mg/dL 74-106 L Performed by certified blanker operator at [facility] [id number] 16:57:00* Test Item Value Reference Range Interpretation Comments GLUBED (test code = GLUBED) 76 mg/dL 74-106 N Performed by certified blanker operator at [facility] [id number] 13:11:00* Test Item Value Reference Range Interpretation Comments POTASSIUM (test code = K) 5.2 mmol/L 3.5-5.1 H [id number] 11:49:00* Test Item Value Reference Range Interpretation Comments GLUBED (test code = GLUBED) 81 mg/dL 74-106 N Performed by certified blanker operator at [facility] [id number] 09:39:00* Test Item Value Reference Range Interpretation Comments GLUBED (test code = GLUBED) 78 mg/dL 74-106 N Performed by certified blanker operator at [facility] - MRI LOW EXT W/O CONT [id number] 09:36:00 FAX: Olegario Diaz MD [phone] [place]: B St: ADM FAX: Heavenly Kerr [facility] [phone] FAX: Riley Zavala DO [phone] Name: BREE LINDSAY [facility] : 1975 Age/S: 43/M [address] [facility] Unit #: [id number] Loc: V.30[address] [place] [address] Phys: Heavenly Null DPM Acct: [id number] Dis Date: Status: ADM IN ONE #: [phone] Exam Date: 02/15/2019 0859 FAX #: [phone] Reason: cellulitis EXAMS: CPT CODE: [id number] MR [place]T W/[place] [address] HISTORY: Cellu litis TECHNIQUE: Sagittal T1, sagittal [...] By: [id number] Orig Print D/T: S: 02/15/2019 (0976) PAGE 1 Signed Report [id number] 07:22:00* Test Item Value Reference Range Interpretation Comments GLUBED (test code = GLUBED) 57 mg/dL 74-106 L Performed by certified blanker operator at [facility] BASIC METABOLIC [id number] 05:15:00* Test Item Value Reference Range Interpretation Comments SODIUM (test code = NA) 136 mmol/L 136-145 N POTASSIUM (test code = K) 2.7 mmol/L 3.5-5.1 LL Re sults called [place] [address] [place] [address] 02/15/19 0515Critical results verified and [...] CA) 8.3 mg/dL 8.5-10.1 L C REACTIVE [id number] 04:21:00* Test Item Value Reference Range Interpretation Comments C REACTIVE PROTEIN (test code = CRP) 27.10 mg/dL 0-0.3 H CBC W/MANUAL [id number] 04:05:00* Test Item Value Reference Range Interpretation [...] IMMAT) 0 % 0-0 N CBC W/MANUAL [id number] 03:30:00* Test Item Value Reference Range Interpretation [...] PLTEST) PLATELET MORPHOLOGY (test code = PLTMORPH) [id number] 20:26:00* Test Item Value Reference Range Interpretation Comments GLUBED (test code = GLUBED) 151 mg/dL 74-106 H Performed by certified blanker operator at [facility] [id number] 17:12:00* Test Item Value Reference Range Interpretation Comments GLUBED (test code = GLUBED) 124 mg/dL 74-106 H Performed by certified blanker operator at [facility] [id number] 17:07:00* Test Item Value Reference Range Interpretation Comments GLUBED (test code = GLUBED) 81 mg/dL 74-106 N Performed by certified blanker operator at [facility] [id number] 12:13:00* Test Item Value Reference Range Interpretation Comments GLUBED (test code = GLUBED) 95 mg/dL 74-106 N Performed by certified blanker operator at [facility] CBC W/MANUAL [id number] 08:15:00* Test Item Value Reference Range Interpretation [...] code = IMMAT) 0 % 0-0 N [id number] 07:18:00* Test Item Value Reference Range Interpretation Comments GLUBED (test code = GLUBED) 195 mg/dL 74-106 H Performed by certified blanker operator at [facility] BASIC METABOLIC [id number] 07:16:00* Test Item Value Reference Range Interpretation [...] code = CA) 8.4 mg/dL 8.5-10.1 L [id number] 07:16:00* Test Item Value Reference Range Interpretation Comments MAGNESIUM (test code = MAG) 1.7 mg/dL 1.8-2.4 L CBC W/MANUAL [id number] 06:58:00* Test Item Value Reference Range Interpretation [...] MORPHOLOGY (test code = PLTMORPH) CBC W/MANUAL [id number] 06:58:00* Test Item Value Reference Range Interpretation [...] MORPHOLOGY (test code = PLTMORPH) CBC W/MANUAL [id number] 06:58:00* Test Item Value Reference Range Interpretation [...] MORPHOLOGY (test code = PLTMORPH) CBC W/MANUAL [id number] 06:58:00* Test Item Value Reference Range Interpretation [...] MORPHOLOGY (test code = PLTMORPH) CBC W/MANUAL [id number] 06:58:00* Test Item Value Reference Range Interpretation [...] MORPHOLOGY (test code = PLTMORPH) BASIC METABOLIC [id number] 06:56:00* Test Item Value Reference Range Interpretation [...] CALCIUM (test code = CA) mg/dL 8.5-10.1 [id number] 06:56:00* Test Item Value Reference Range Interpretation Comments MAGNESIUM (test code = MAG) mg/dL 1.8-2.4 [id number] 20:42:00* Test Item Value Reference Range Interpretation Comments GLUBED (test code = GLUBED) 261 mg/dL 74-106 H Performed by certified blanker operator at [facility] CBC W/MANUAL [id number] 10:55:00* Test Item Value Reference Range Interpretation [...] MORPHOLOGY (test code = PLTMORPH) NORMAL URINALYSIS [id number] 10:38:00* Test Item Value Reference Range Interpretation [...] Clean Catch- XR FOOT 3 + V [id number] 10:33:00 Name: BREE LINDSAY [facility] : 1975 Age/S:43 /M [address] [facility] Unit#:[id number] Loc: [place] [address] Phys: Chandan Cage MD Dis Date: PHONE #: [phone] Status: REG ER FAX #: [phone] Exam Date: 02/13/2019 Re ason: left foot swelling EXAMS: CPT CODE: [id number] XR FOOT 3 + [place] [address] CLINICAL HISTORY: left foot swelling TECHNIQUE: AP, [...] t.SDR.RR31 Orig Print D/T: S : 02/13/2019 (1036) PAGE 1 Signed Report LACTIC [id number] 10:28:00* Test Item Value Reference Range Interpretation Comments LACTIC ACID (test code = LACT) 1.6 MMOL/L 0.4-1.9 N BASIC METABOLIC [id number] 10:28:00* Test Item Value Reference Range Interpretation [...] CA) 8.7 mg/dL 8.4-10.2 N HEPATIC FUNCTION [id number] 10:28:00* Test Item Value Reference Range Interpretation [...] code = ALKP) 120 U/L 38-126 N [id number] 10:28:00* Test Item Value Reference Range Interpretation Comments TROPONIN-I (test code = TROPI) <0.015 ng/mL 0.00-0.056 N URINALYSIS [id number] 10:20:00* Test Item Value Reference Range Interpretation [...] HPF NONE Urine Source? Clean CatchBASIC METABOLIC [id number] 10:19:00* Test Item Value Reference Range Interpretation [...] CA) 8.7 mg/dL 8.4-10.2 N HEPATIC FUNCTION [id number] 10:19:00* Test Item Value Reference Range Interpretation [...] TOTAL (test code = ALKP) IUnit/L 45-117 [id number] 10:19:00* Test Item Value Reference Range Interpretation Comments TROPONIN-I (test code = TROPI) ng/mL 0-0.045 CBC W/MANUAL [id number] 10:13:00* Test Item Value Reference Range Interpretation [...] MORPHOLOGY (test code = PLTMORPH) CBC W/MANUAL [id number] 10:02:00* Test Item Value Reference Range Interpretation [...] MORPHOLOGY (test code = PLTMORPH) CBC W/MANUAL [id number] 10:02:00* Test Item Value Reference Range Interpretation [...] MORPHOLOGY (test code = PLTMORPH) CBC W/MANUAL [id number] 10:02:00* Test Item Value Reference Range Interpretation [...] MORPHOLOGY (test code = PLTMORPH) CBC W/MANUAL [id number] 10:02:00* Test Item Value Reference Range Interpretation [...] code = PLTMORPH) - XR CHEST 1 [id number] 09:56:00 [facility] 1975 Age/S:43 /M [address] [facility] Unit#:[id number] Loc: [place] [address] Phys: Tracy Cage MD Dis Date: PHONE #: [phone] Status: REG ER FAX #: [phone] Exam Date: 02/13/2019 Reason: CODE SEPSIS EXAMS: CPT CODE: [id number] XR CHEST 1 V 14840 REASON FOR EXAM: CODE SEPSIS Exam Order [...] cholecystectomy. IMPRESSION: No acute cardiopulmonary process. Location: [facility] Signed by Mulugeta Espinoza MD on 02/13/2019 at 0956 Reported and signed by: Mulugeta Espinoza MD CC: Tracy Cage MD; Keeley Beckman DO Technologist: Stone Sadler RT(R)(CT) Trnscrpt Data: 02/13/2019 (0956) t.SDR.RR31 Orig Print D/T: S: 02/13/2019 (6886) PAGE 1 Signed Report [id number] 16:17:00* Test Item Value Reference Range Interpretation Comments GLUBED (test code = GLUBED) 187 mg/dL 74-106 H Performed by certified blanker operator at [facility] [id number] 11:57:00* Test Item Value Reference Range Interpretation Comments GLUBED (test code = GLUBED) 147 mg/dL 74-106 H Performed by certified blanker operator at [facility] [id number] 07:34:00* Test Item Value Reference Range Interpretation Comments GLUBED (test code = GLUBED) 110 mg/dL 74-106 H Performed by certified blanker operator at [facility] CBC W/MANUAL [id number] 05:59:00* Test Item Value Reference Range Interpretation [...] IMMAT) 0 % 0-0 N BASIC METABOLIC [id number] 05:25:00* Test Item Value Reference Range Interpretation Comments SODIUM (test code = NA) 138 mmol/L 136-145 N POTASSIUM (test code = K) 2.7 mmol/L 3.5-5.1 [facility] sults called to [id number] by [place] 02/12/19 0525Critical results verified and [...] CA) 8.4 mg/dL 8.5-10.1 L CBC W/MANUAL [id number] 05:04:00* Test Item Value Reference Range Interpretation [...] MORPHOLOGY (test code = PLTMORPH) CBC W/MANUAL [id number] 05:04:00* Test Item Value Reference Range Interpretation [...] MORPHOLOGY (test code = PLTMORPH) CBC W/MANUAL [id number] 05:04:00* Test Item Value Reference Range Interpretation [...] MORPHOLOGY (test code = PLTMORPH) CBC W/MANUAL [id number] 05:04:00* Test Item Value Reference Range Interpretation [...] MORPHOLOGY (test code = PLTMORPH) CBC W/MANUAL [id number] 05:04:00* Test Item Value Reference Range Interpretation [...] interpreted taking into account the patients history. [id number] 19:42:00* Test Item Value Reference Range Interpretation Comments GLUBED (test code = GLUBED) 131 mg/dL 74-106 H Performed by certified blanker operator at [facility] LACTIC [id number] 19:38:00* Test Item Value Reference Range Interpretation Comments LACTIC ACID (test code = LACT) 0.7 mmol/L 0.4-1.9 N [id number] 18:44:00* Test Item Value Reference Range Interpretation Comments GLUBED (test code = GLUBED) 129 mg/dL 74-106 H Performed by certified blanker operator at [facility] [id number] 16:34:00* Test Item Value Reference Range Interpretation Comments GLUBED (test code = GLUBED) 66 mg/dL 74-106 L Performed by certified blanker operator at [facility] [id number] 12:07:00* Test Item Value Reference Range Interpretation Comments GLUBED (test code = GLUBED) 285 mg/dL 74-106 H Performed by certified blanker operator at [facility] - XR CHEST 1 [id number] 08:53:00 FAX: Faith Cook MD [phone] [place]: B St: ADM FAX: Riley Zavala DO [phone] Name: BREE LINDSAY [facility] : 1975 Age/S: 43/M [address] [facility] Unit #: [id number] Loc: V.[address] [place] [address] Phys: Faith Roy MD Acct: [id number] Dis Date: Status: ADM IN PHONE #: [phone] Exam Date: 02/11/2019829 FAX #: [phone] Reason: Leukocytosis EXAMS: CPT CODE: [id number] XR CHEST 1 V 09335 HISTORY: Leukocytosis. COMPARISON: January 12, 2018. Location: [facility]. No acute infiltrates, effusion or congestion is [...] 293 mg/dL 74-106 H Performed by certified blanker operator at [facility] CBC W/MANUAL [id number] 06:45:00* Test Item Value Reference Range Interpretation [...] IMMAT) 0 % 0-0 N BASIC METABOLIC [id number] 06:37:00* Test Item Value Reference Range Interpretation [...] CA) 8.6 mg/dL 8.5-10.1 N BASIC METABOLIC [id number] 06:31:00* Test Item Value Reference Range Interpretation [...] code = CA) mg/dL 8.5-10.1 CBC W/MANUAL [id number] 06:18:00* Test Item Value Reference Range Interpretation [...] MORPHOLOGY (test code = PLTMORPH) CBC W/MANUAL [id number] 06:18:00* Test Item Value Reference Range Interpretation [...] MORPHOLOGY (test code = PLTMORPH) CBC W/MANUAL [id number] 06:18:00* Test Item Value Reference Range Interpretation [...] MORPHOLOGY (test code = PLTMORPH) CBC W/MANUAL [id number] 06:18:00* Test Item Value Reference Range Interpretation [...] MORPHOLOGY (test code = PLTMORPH) CBC W/MANUAL [id number] 06:18:00* Test Item Value Reference Range Interpretation [...] PLATELET MORPHOLOGY (test code = PLTMORPH) URINALYSIS [id number] 02:01:00* Test Item Value Reference Range Interpretation [...] BE COLLECTED BY NURSEDRUGS OF ABUSE SCREEN [id number] 02:01:00* Test Item Value Reference Range Interpretation [...] Source? VoidedSAMPLE TO BE COLLECTED BY NURSEURINALYSIS [id number] 01:45:00* Test Item Value Reference Range Interpretation [...] BE COLLECTED BY NURSEDRUGS OF ABUSE SCREEN [id number] 01:45:00* Test Item Value Reference Range Interpretation [...] 02/10/192142Urine Source? VoidedSAMPLE TO BE COLLECTED BY [id number] 23:31:00* Test Item Value Reference Range Interpretation Comments GLUBED (test code = GLUBED) 223 mg/dL 74-106 H Performed by certified blanker operator at [facility] [id number] 18:09:00* Test Item Value Reference Range Interpretation Comments GLUBED (test code = GLUBED) 201 mg/dL 74-106 H Performed by certified blanker operator at [facility] [id number] 11:27:00* Test Item Value Reference Range Interpretation Comments GLUBED (test code = GLUBED) 291 mg/dL 74-106 H Performed by certified blanker operator at [facility] [id number] 08:25:00* Test Item Value Reference Range Interpretation Comments GLUBED (test code = GLUBED) 288 mg/dL 74-106 H Performed by certified blanker operator at [facility] - XR ABDOMEN AP 1 [id number] 08:01:00 FAX: Bobby Self MD [place]: B St: ADM FAX: Riley Zavala DO [phone] Name: BREE LINDSAY [facility] : 1975 Age/S: 43/M [address] [facility] Unit #: [id number] Loc: V.3017 [place] [address] Phys: Bobby Self MD Acct: [id number] Dis Date: Status: ADM IN PHONE #: [phone] Exam Date: 02/10/2019804 FAX #: [phone] Reason: abdominal pain nausea and vomiting EXAMS: CPT CODE: [id number] XR ABDOMEN AP 1 V 23994 HISTORY: abdominal pain nausea and vomiting TECHNIQUE: [...] into account the patients history. BASIC METABOLIC [id number] 00:47:00* Test Item Value Reference Range Interpretation [...] CA) 9.1 mg/dL 8.5-10.1 N HEPATIC FUNCTION [id number] 00:47:00* Test Item Value Reference Range Interpretation [...] reference range due to change in reagent. [id number] 00:47:00* Test Item Value Reference Range Interpretation Comments LIPASE (test code = LIP) < 10 U/L 73.0-393.0 L CBC W/O [id number] 00:11:00* Test Item Value Reference Range Interpretation [...] code = MPV) 9.7 fL 6.7-11.0 N [id number] 07:24:00* Test Item Value Reference Range Interpretation Comments GLUBED (test code = GLUBED) 269 mg/dL 74-106 H Performed by certified blanker operator at [facility] [id number] 20:19:00* Test Item Value Reference Range Interpretation Comments GLUBED (test code = GLUBED) 199 mg/dL 74-106 H Performed by certified blanker operator at [facility] [id number] 16:56:00* Test Item Value Reference Range Interpretation Comments GLUBED (test code = GLUBED) 153 mg/dL 74-106 H Performed by certified blanker operator at [facility] [id number] 11:42:00* Test Item Value Reference Range Interpretation Comments GLUBED (test code = GLUBED) 231 mg/dL 74-106 H Performed by certified blanker operator at [facility] [id number] 08:17:00* Test Item Value Reference Range Interpretation Comments GLUBED (test code = GLUBED) 160 mg/dL 74-106 H Performed by certified blanker operator at [facility] CBC W/AUTO [id number] 06:43:00* Test Item Value Reference Range Interpretation [...] NRBC#) 0.00 K/mm3 0.0-0.1 N BASIC METABOLIC [id number] 06:43:00* Test Item Value Reference Range Interpretation [...] CA) 8.8 mg/dL 8.5-10.1 N BASIC METABOLIC [id number] 06:26:00* Test Item Value Reference Range Interpretation [...] (test code = CA) mg/dL 8.5-10.1 URINALYSIS [id number] 23:07:00* Test Item Value Reference Range Interpretation [...] Urine Source? Clean CatchDRUGS OF ABUSE SCREEN [id number] 23:07:00* Test Item Value Reference Range Interpretation [...] NEGATIVE <300 ng/mL Urine Source? Clean CatchURINALYSIS [id number] 22:44:00* Test Item Value Reference Range Interpretation [...] Urine Source? Clean CatchDRUGS OF ABUSE SCREEN [id number] 22:44:00* Test Item Value Reference Range Interpretation [...] <300 ng/mL Urine Source? Clean CatchBASIC METABOLIC [id number] 18:12:00* Test Item Value Reference Range Interpretation [...] CA) 10.0 mg/dL 8.5-10.1 N HEPATIC FUNCTION [id number] 18:12:00* Test Item Value Reference Range Interpretation [...] reference range due to change in reagent. [id number] 18:12:00* Test Item Value Reference Range Interpretation Comments LIPASE (test code = LIP) < 10 U/L 73.0-393.0 L BASIC METABOLIC [id number] 18:04:00* Test Item Value Reference Range Interpretation [...] code = CA) mg/dL 8.5-10.1 HEPATIC FUNCTION [id number] 18:04:00* Test Item Value Reference Range Interpretation [...] TOTAL (test code = ALKP) IUnit/L 45-117 [id number] 18:04:00* Test Item Value Reference Range Interpretation Comments LIPASE (test code = LIP) U/L 73.0-393.0 CBC W/O [id number] 18:00:00* Test Item Value Reference Range Interpretation [...] code = MPV) 10.1 fL 6.7-11.0 N [id number] 17:11:00* Test Item Value Reference Range Interpretation Comments GLUBED (test code = GLUBED) 108 mg/dL 74-106 H Performed by certified blanker operator at [facility] [id number] 14:49:00 RUN DATE: 12/21/18 [facility] - Lab PAGE 1 RUN TIME: 1449 Specimen Inqui ry RUN USER: INTERFACE PATIENT: BREE LINDSAY ACCT #: [id number] LOC: Jason3SOBS U #: [id number] AGE/SX: 43/M ROOM: [facility] RE12/16/18REG DR: Olegario Diaz MD : 75 BED: A DIS: 12/19/18 STATUS: DIS IN TLOC: SPEC #: [id number] RECD: 12/20/18 STATUS: SHAHRAM LUEVANO #: [id number] HUY: 12/18/18- SUBM DR: Sav Coffey MD ENTERED: 12/20/18 SP TYPE: GALLBLADD OTHR DR: Levi Natarajan i, MD, Shao-Chun DOORDERED: LINDA COPIES TO: Levi Lakhani MD [address] [place] [address] Sav Coffey MD [address] [place] [address] [place] [address] [place] [address] MARKERS: ABNORMAL TISSUE, GALLBL ADDER PROCEDURES: LINDA (12/21/18-1158) TISSUES: GALLBLADDER, NOS CLINICAL HISTORY COLLECTION DATE: 12/18/18 CHOLECYSTITIS FIN AL DIAGNOSIS Gallbladder, cholecystectomy: PATCHY MILD CHRONIC ACALCUL OUS CHOLECYSTITIS NEGATIVE FOR MALIGNANCY RRB/sm A 95266 CONTINUED ON NEXT PAGE RUN DATE : 12/21/18 [facility] - Lab PAGE 2 RUN TIME: 1449 Specimen Inquiry RUN USER: INTERFACE SPEC #: [id number] PATIENT: BREE LINDSAY #V [id number] (Continued) MACROSCOPIC The specimen is r eceived [...] thickness. No foc al lesions are identified. Edge [place] tissue is submitted in a single violeta sette. GROSS PERFORMED AT [facility] [address] [place] [address] (p)[phone] MICROSCOPIC All of the stains, including any controls performed, st ain appropriately. MICROSCOPIC PERFORMED AT [facility] [address] [place] [address] (H) PERFORMING SITE Diagnosis performed at: [facility], [place] [address] [place] [address] Signed ORLIN Irvin ON FILE Dino Patton MD 12/21/18 1449 END OF REPORT GLUBED 2018-12-19 11:45:00* Test Item Value Reference Range Interpretation Comments GLUBED (test code = GLUBED) 238 mg/dL 74-106 H Performed by certified blanker operator at [facility] BASIC METABOLIC [id number] 08:28:00* Test Item Value Reference Range Interpretation [...] code = CA) 8.2 mg/dL 8.5-10.1 L [id number] 08:28:00* Test Item Value Reference Range Interpretation Comments MAGNESIUM (test code = MAG) 1.5 mg/dL 1.8-2.4 L BASIC METABOLIC [id number] 08:21:00* Test Item Value Reference Range Interpretation [...] CALCIUM (test code = CA) mg/dL 8.5-10.1 [id number] 08:21:00* Test Item Value Reference Range Interpretation Comments MAGNESIUM (test code = MAG) mg/dL 1.8-2.4 CBC W/AUTO [id number] 07:56:00* Test Item Value Reference Range Interpretation [...] DIFF REQUIRED (test code = MDIFF) NO [id number] 07:38:00* Test Item Value Reference Range Interpretation Comments GLUBED (test code = GLUBED) 277 mg/dL 74-106 H Performed by certified blanker operator at [facility] [id number] 20:34:00* Test Item Value Reference Range Interpretation Comments GLUBED (test code = GLUBED) 165 mg/dL 74-106 H Performed by certified blanker operator at [facility] [id number] 19:18:00* Test Item Value Reference Range Interpretation Comments GLUBED (test code = GLUBED) 203 mg/dL 74-106 H Performed by certified blanker operator at [facility] BASIC METABOLIC [id number] 11:47:00* Test Item Value Reference Range Interpretation [...] mg/dL 8.5-10.1 L PT IN SURGERY PAIGE [id number] V.LAB.[facility] 12/18/18 [id number] 11:42:00* Test Item Value Reference Range Interpretation Comments GLUBED (test code = GLUBED) 360 mg/dL 74-106 H Performed by certified blanker operator at [facility] BASIC METABOLIC [id number] 11:41:00* Test Item Value Reference Range Interpretation [...] CA) mg/dL 8.5-10.1 PT IN SURGERY PAIGE [id number] V.LAB.2 12/18/18 0926CBC W/AUTO [id number] 11:11:00* Test Item Value Reference Range Interpretation [...] = MDIFF) NO PT IN SURGERY RN [id number] V.LAB.KP2 12/18/18 [id number] 03:55:00* Test Item Value Reference Range Interpretation Comments GLUBED (test code = GLUBED) 269 mg/dL 74-106 H Performed by certified blanker operator at [facility] [id number] 23:58:00* Test Item Value Reference Range Interpretation Comments GLUBED (test code = GLUBED) 233 mg/dL 74-106 H Performed by certified blanker operator at [facility] [id number] 09:16:00* Test Item Value Reference Range Interpretation Comments GLUBED (test code = GLUBED) 179 mg/dL 74-106 H Performed by certified blanker operator at [facility] BASIC METABOLIC [id number] 06:40:00* Test Item Value Reference Range Interpretation Comments SODIUM (test code = NA) 141 mmol/L 136-145 N POTASSIUM (test code = K) 2.8 mmol/L 3.5-5.1 LL Re sults called to [id number] by V.LAB.WJC 12/17/18 0639Critical results verified and [...] code = CA) 8.3 mg/dL 8.5-10.1 L [id number] 06:40:00* Test Item Value Reference Range Interpretation Comments MAGNESIUM (test code = MAG) 1.6 mg/dL 1.8-2.4 L B-TYPE NATRIURETIC [id number] 06:34:00* Test Item Value Reference Range Interpretation Comments B-TYPE NATRIURETIC PEPTIDE (test code = BNP) 128.51 pgram/mL 0-100 H CBC W/AUTO [id number] 05:33:00* Test Item Value Reference Range Interpretation [...] code = NRBC#) 0.00 K/mm3 0.0-0.1 N [id number] 02:55:00* Test Item Value Reference Range Interpretation Comments GLUBED (test code = GLUBED) 102 mg/dL 74-106 N Performed by certified blanker operator at [facility] [id number] 21:18:00* Test Item Value Reference Range Interpretation Comments GLUBED (test code = GLUBED) 224 mg/dL 74-106 H Performed by certified blanker operator at [facility] [id number] 16:43:00* Test Item Value Reference Range Interpretation Comments GLUBED (test code = GLUBED) 158 mg/dL 74-106 H Performed by certified blanker operator at [facility] DRUGS OF ABUSE SCREEN [id number] 14:45:00* Test Item Value Reference Range Interpretation [...] NEGATIVE <300 ng/mL DRUGS OF ABUSE SCREEN [id number] 14:24:00* Test Item Value Reference Range Interpretation [...] ng/mL - HEPA IMAG INCL GB W [id number] 14:14:00 FAX: Leia Kendrick [place]: B St: ADM FAX: Bobby Self MD FAX: Riley Zavala DO [phone] Name: BREE LINDSAY [facility] : 1975 Age/S: 43/M [address] [facility] Unit #: [id number] Loc: V.30[address] [place] [address] Phys: Leia Kendrick MSN Acct: [id number] Dis Date: Status: ADM IN ONE #: [phone] Exam Date: 12/16/20181411 FAX #: [phone] Reason: recurrent n/v EXAMS: CPT CODE: [id number] HE PA IMAG INCL GB W PHA 91338 HISTORY: recur rent n/v EXAM: NUCLEAR MEDICINE [...] DO Technologist: ESAU ASHRAF Trnscrd Date/Time/By: 12/16/2018 (1759) : By: [email or web address] 1 Orig Print D/T: S: 12/16/2018 (1381) PAGE 1 Signed Report GLUBED 2018-12-16 11:12:00* Test Item Value Reference Range Interpretation Comments GLUBED (test code = GLUBED) 133 mg/dL 74-106 H Performed by certified blanker operator at [facility] - US ABDOMEN [id number] 10:25:00 Name: BREE LINDSAY [facility] : 1975 Age/S: 43 / M [address] Unit #: [id number] Loc: [place] [address] Phys: Marcus Kendrickjammie Arce MSN Acct: [id number] Dis Date: Status: ADM IN PHONE #: [phone] Exam Date: 12/16/2018 0940 FAX #: [phone] Reason: n/v EXAMS: CPT CODE: [id number] US ABDOMEN COMPLETE 25858 REASON FOR EXAM: n/v EXAM ORDER DATE: [...] 1 Signed Report (CONTINUED) Name: BREE LINDSAY [facility] : 1975 Age/S: 43 / M [address] Unit #: [id number] Loc: [place] [address] Phys: Leia Kendrick MSN Acct: [id number] Dis Date: Status: AD M IN PHONE #: [phone] Exam Date: 12/16 0940 FAX #: [phone] Reason: n/v EXAMS: CPT CODE: [id number] US ABDOMEN COMPLETE 76 700 <Continued> Left [...] Riley Beckman DO Technologist: NOEMY OLVERA RT(R),RDMS Trncob Date/Time: 12/16/2018 (1025) [email or web address] Orig Print D/T: S: 12/16/2018 (6017) Probe: PAGE 2 Signed Report [id number] 07:04:00* Test Item Value Reference Range Interpretation Comments GLUBED (test code = GLUBED) 177 mg/dL 74-106 H Performed by certified blanker operator at [facility] URINALYSIS [id number] 00:25:00* Test Item Value Reference Range Interpretation [...] FEW A Urine Source? Clean CatchBASIC METABOLIC [id number] 00:22:00* Test Item Value Reference Range Interpretation [...] CA) 8.8 mg/dL 8.5-10.1 N HEPATIC FUNCTION [id number] 00:22:00* Test Item Value Reference Range Interpretation [...] reference range due to change in reagent. [id number] 00:22:00* Test Item Value Reference Range Interpretation Comments LIPASE (test code = LIP) < 10 U/L 73.0-393.0 L [id number] 00:22:00* Test Item Value Reference Range Interpretation Comments TROPONIN-I (test code = TROPI) <0.015 ng/mL 0-0.045 N BASIC METABOLIC [id number] 00:12:00* Test Item Value Reference Range Interpretation [...] code = CA) mg/dL 8.5-10.1 HEPATIC FUNCTION [id number] 00:12:00* Test Item Value Reference Range Interpretation [...] TOTAL (test code = ALKP) IUnit/L 45-117 [id number] 00:12:00* Test Item Value Reference Range Interpretation Comments LIPASE (test code = LIP) U/L 73.0-393.0 [id number] 00:12:00* Test Item Value Reference Range Interpretation Comments TROPONIN-I (test code = TROPI) ng/mL 0-0.045 CBC W/O [id number] 00:06:00* Test Item Value Reference Range Interpretation [...] MPV) 10.2 fL 6.7-11.0 N BASIC METABOLIC [id number] 08:09:00* Test Item Value Reference Range Interpretation [...] CA) 9.0 mg/dL 8.5-10.1 N HEPATIC FUNCTION [id number] 08:09:00* Test Item Value Reference Range Interpretation [...] reference range due to change in reagent. [id number] 08:09:00* Test Item Value Reference Range Interpretation Comments LIPASE (test code = LIP) < 10 U/L 73.0-393.0 L [id number] 08:09:00* Test Item Value Reference Range Interpretation Comments TROPONIN-I (test code = TROPI) <0.015 ng/mL 0-0.045 N BASIC METABOLIC [id number] 07:52:00* Test Item Value Reference Range Interpretation [...] code = CA) mg/dL 8.5-10.1 HEPATIC FUNCTION [id number] 07:52:00* Test Item Value Reference Range Interpretation [...] TOTAL (test code = ALKP) IUnit/L 45-117 [id number] 07:52:00* Test Item Value Reference Range Interpretation Comments LIPASE (test code = LIP) U/L 73.0-393.0 [id number] 07:52:00* Test Item Value Reference Range Interpretation Comments TROPONIN-I (test code = TROPI) ng/mL 0-0.045 CBC W/O [id number] 07:40:00* Test Item Value Reference Range Interpretation [...] = MPV) 10.5 fL 6.7-11.0 N POC-Glucose [id number] 17:19:00* Test Item Value Reference Range Interpretation Comments POC-Glucose Meter (test code = 1538) 266 mg/dL 70-110 H TESTED AT [address] [address] Lab Interpretation (test code = 41640-3) [facility] [id number] 17:19:00* Test Item Value Reference Range Interpretation Comments POC-GLUCOSE METER (BEAKER) (test code = 1538) 266 mg/dL 70-110 H TESTED AT [address] [address] ECG 12 [id number] 14:27:26Interface, External Ris In - 12/14/2018 2:27 PM CDTVentricular Rate 78 BPMAtrial Rate 78 BPMP-R Interval 168 msQRS Duration 80 msQ-T Interval 350 msQTC Calculation(Bazett) 399 msP [place] 52 degreesR [place] -14 degreesT [place] 35 degreesNormal sinus rhythmNormal ECGNo previous ECGs availableConfirmed by MD MEGGAN, MARCELINO (190) on 12/14/2018 2:27:24 [facility] [id number] 12:17:00* Test Item Value Reference Range Interpretation Comments POC-GLUCOSE METER (BEAKER) (test code = 1538) 240 mg/dL 70-110 H TESTED AT [address] [address] POCT-GLUCOSE [id number] 08:12:00* Test Item Value Reference Range Interpretation Comments POC-GLUCOSE METER (BEAKER) (test code = 1538) 184 mg/dL 70-110 H TESTED AT [facility] [address] [address] Basic metabolic [id number] 06:18:00* Test Item Value Reference Range Interpretation [...] mg/dL 70-105 H Calcium (test code = 61365-3) 8.7 mg/dL 8.4-10.2 EGFR (test code = 02369-5) 87 mL/min/1.73 sq m ESTIMATED GFR IS NOT ACCURATE CREATININE CLEARANCE IN PREDICTING GLOMERULAR FILTRATION RATE. ESTIMATED GFR IS NOT APPLICABLE FOR DIALYSIS PATIENTS. Lab Interpretation (test code = 73257-3) [facility] Test Item Value Reference Range Interpretation Comments Magnesium (test code = 35618-1) 1.6 mg/dL 1.6-2.6 Lab Interpretation (test code = 73435-0) Normal [facility] 06:18:00* Test Item Value Reference Range Interpretation Comments Phosphorus (test code = 2777-1) 2.2 mg/dL 2.3-4.7 L Lab Interpretation (test code = 91888-4) [facility]normal [facility]-17 06:18:00* Test Item Value Reference Range Interpretation Comments PHOSPHORUS (BEAKER) (test code = 604) 2.2 mg/dL 2.3-4.7 L [id number] 06:18:00* Test Item Value Reference Range Interpretation Comments MAGNESIUM (BEAKER) (test code = 627) 1.6 mg/dL 1.6-2.6 BASIC METABOLIC [id number] 06:18:00* Test Item Value Reference Range Interpretation [...] PATIENTS. CBC with platelet count + automated [id number] 06:16:00* Test Item Value Reference Range Interpretation [...] clinical correlation required. MPV (test code = 13654-4) 10.4 fL 9.4-12.4 nRBC (test code = [...] % 0-1 Lab Interpretation (test code = 07686-6) Abnormal [facility] W/PLT COUNT & AUTO [id number] 06:16:00* Test Item Value Reference Range Interpretation [...] code = 2801) 0 % 0-1 POCT-GLUCOSE [id number] 21:15:00* Test Item Value Reference Range Interpretation Comments POC-GLUCOSE METER (BEAKER) (test code = 1538) 307 mg/dL 70-110 H Notified RN or MD Patient refused repeat test/TESTED AT [facility] [address] [address] Hemoglobin [id number] 19:48:00* Test Item Value Reference Range Interpretation Comments Hemoglobin A1C (test code = 4548-4) 8.4 % 4.3-6.1 H Lab Interpretation (test code = 18695-5) [facility] [id number] 19:48:00* Test Item Value Reference Range Interpretation Comments HEMOGLOBIN A1C (BEAKER) (test code = 368) 8.4 % 4.3-6.1 H Lipid [id number] 16:17:00* Test Item Value Reference Range Interpretation Comments Triglycerides (test code = 2571-8) 101 mg/dL Cholesterol (test code = 2093-3) 151 mg/dL HDL (test code = 2085-9) 38 mg/dL LDL Calculated (test code = 90932-2) 93 mg/dL BESS (test code = BESS) Triglyceride Reference Range : Low Risk <150 Borderline 150-199 High Risk 200-499 Very High Risk >=500 Cholesterol Reference Range: Low Risk <200 Borderline 200-239 High Risk >240 HDL Cholesterol Reference Range: Low Risk >=60 High Risk <40 LDL Cholesterol Reference Range: Optimal <100 Near Optimal 100-129 Borderline 130-159 High 160-189 Very High >=190 [facility] [id number] 16:17:00* Test Item Value Reference Range Interpretation Comments Protein, Total (test code = 2885-2) 6.9 6.0- 8.3 gm/dL Albumin (test code = 37446-7) 3.9 g/dL 3.5-5 Total Bilirubin (test code = 1975-2) 0.5 mg/dL 0.2-1.2 Bilirubin, Direct (test code = 1967-7) 0.2 mg/dL 0.1-0.5 Alkaline Phosphatase (test code = 6768-6) 80 U/L 40-150 AST (test code = 1920-8) 18 U/L 5-34 ALT (test code = 1742-6) 15 U/L 6-55 Lab Interpretation (test code = 66117-3) Normal [facility] [id number] 16:17:00* Test Item Value Reference Range Interpretation [...] High 160-189 Very High >=190 BASIC METABOLIC [id number] 16:17:00* Test Item Value Reference Range Interpretation [...] NOT APPLICABLE FOR DIALYSIS PATIENTS. HEPATIC FUNCTION [id number] 16:17:00* Test Item Value Reference Range Interpretation [...] U/L 6-55 CBC W/PLT COUNT & AUTO [id number] 16:07:00* Test Item Value Reference Range Interpretation [...] code = 2801) 0 % 0-1 POCT-GLUCOSE [id number] 16:01:00* Test Item Value Reference Range Interpretation Comments POC-GLUCOSE METER (BEAKER) (test code = 1538) 265 mg/dL 70-110 H TESTED AT [facility] [address] [address] POCT-GLUCOSE [id number] 12:34:00* Test Item Value Reference Range Interpretation Comments POC-GLUCOSE METER (BEAKER) (test code = 1538) 271 mg/dL 70-110 H TESTED AT [facility] [address] [address] Magnesium [id number] 18:51:00* Test Item Value Reference Range Interpretation Comments Magnesium Level (test code = 90911-1) 1.8 1.3-2.1 [facility]2019-09-15 18:51:00* Test Item Value Reference Range Interpretation Comments Lipase (test code = 3040-3) < 4 8-78 L [facility] SpringsMagn[facility] [id number] 18:51:00* Test Item Value Reference Range Interpretation Comments Magnesium Level (test code = 32975-9) 1.8 1.3-2.1 [facility]2019-09-15 18:51:00* Test Item Value Reference Range Interpretation Comments Lipase (test code = 3040-3) < 4 8-78 L [facility] [id number] 18:51:00* Test Item Value Reference Range Interpretation Comments Magnesium Level (test code = 90480-4) 1.8 1.3-2.1 [facility]2019-09-15 18:51:00* Test Item Value Reference Range Interpretation Comments Lipase (test code = 3040-3) < 4 8-78 L [facility]2019-09-15 18:51:00* Test Item Value Reference Range Interpretation Comments Lipase (test code = 3040-3) < 4 8-78 L [facility] Dpiwdgt3232-70-83 20:52:00* Test Item Value Reference Range Interpretation Comments Blood Culture (test code = 80605202) NO GROWTH AFTER 5 DAYS, FINAL REPORT [facility] Byxcgde2590-69-47 20:52:00* Test Item Value Reference Range Interpretation Comments Blood Culture (test code = 39406561) NO GROWTH AFTER 5 DAYS, FINAL REPORT [facility] Taclrev8665-45-00 20:52:00* Test Item Value Reference Range Interpretation Comments Blood Culture (test code = 53250821) NO GROWTH AFTER 5 DAYS, FINAL REPORT [facility] SpringsBlood Vsqezep3782-35-23 20:52:00* Test Item Value Reference Range Interpretation Comments Blood Culture (test code = 44893098) NO GROWTH AFTER 5 DAYS, FINAL REPORT [facility] Nynqqps4045-24-14 15:19:00* Test Item Value Reference Range Interpretation Comments Bedside Glucose (test code = 62147-6) 261 70-120 H Meter ID: [id number]. [facility] Glucose 2018-11-25 15:19:00* Test Item Value Reference Range Interpretation Comments Bedside Glucose (test code = 59472-9) 261 70-120 H Meter ID: [id number]. [facility] Glucose 2018-11-25 15:19:00* Test Item Value Reference Range Interpretation Comments Bedside Glucose (test code = 13080-3) 261 70-120 H Meter ID: [id number]. Luke's [facility] Glucose 2018-11-25 15:19:00* Test Item Value Reference Range Interpretation Comments Bedside Glucose (test code = 42423-9) 261 70-120 H Meter ID: [id number] [facility] SpringsWhite Blood Count 2018-11-25 06:12:00* Test Item Value Reference Range Interpretation Comments White Blood Count (test code = 6690-2) 10.09 4.8-10.8 [facility] SpringsRed Blood [id number] 06:12:00* Test Item Value Reference Range Interpretation Comments Red Blood Count (test code = 789-8) 3.20 4.3-5.7 L [facility] SpringsHemoglobin2019-08-29 06:12:00* Test Item Value Reference Range Interpretation Comments Hemoglobin (test code = 41040-9) 9.0 14.0-18.0 L [facility] SpringsHematocrit2019-08-29 06:12:00* Test Item Value Reference Range Interpretation Comments Hematocrit (test code = 4544-3) 28.1 38.2-49.6 L [facility] SpringsMean Corpuscular Nnmelk1501-12-32 06:12:00* Test Item Value Reference Range Interpretation Comments Mean Corpuscular Volume (test code = 787-2) 87.8 81-99 [facility] SpringsMean Corpuscular Anabrxbggy5239-98-22 06:12:00* Test Item Value Reference Range Interpretation Comments Mean Corpuscular Hemoglobin (test code = 785-6) 28.1 28-32 [facility] SpringsMean Corpuscular Hemoglobin Concent 2018-11-25 06:12:00* Test Item Value Reference Range Interpretation Comments Mean Corpuscular Hemoglobin Concent (test code = 786-4) 32.0 31-35 [facility] SpringsRed Cell Distribution Lwxto6149-41-87 06:12:00* Test Item Value Reference Range Interpretation Comments Red Cell Distribution Width (test code = 21709-4) 13.7 11.7 -14.4 [facility] SpringsPlatelet [id number] 06:12:00* Test Item Value Reference Range Interpretation Comments Platelet Count (test code = 777-3) 185 140-360 [facility] SpringsNeutrophils (%) (Auto)2018-11-25 06:12:00 * Test Item Value Reference Range Interpretation Comments Neutrophils (%) (Auto) (test code = 38173-4) 60.5 38.7-80.0 [facility] SpringsLymphocytes (%) (Auto)2018-11-25 06:12:00 * Test Item Value Reference Range Interpretation Comments Lymphocytes (%) (Auto) (test code = 736-9) 24.7 18.0-39.1 [facility] SpringsMonocytes (%) (Auto)2018-11-25 06:12:00* Test Item Value Reference Range Interpretation Comments Monocytes (%) (Auto) (test code = 5905-5) 12.2 4.4-11.3 H [facility] SpringsEosinophils (%) (Auto)2018-11-25 06:12:00 * Test Item Value Reference Range Interpretation Comments Eosinophils (%) (Auto) (test code = 713-8) 2.0 0.0-6.0 [facility] SpringsBasophils (%) (Auto)2018-11-25 06:12:00* Test Item Value Reference Range Interpretation Comments Basophils (%) (Auto) (test code = 706-2) 0.5 0.0-1.0 [facility] SpringsIM GRANULOCYTES %2018-11-25 06:12:00* Test Item Value Reference Range Interpretation Comments IM GRANULOCYTES % (test code = IM GRANULOCYTES %) 0.1 0.0- 1.0 [facility] SpringsNeutrophils # (Auto)2018-11-25 06:12:00* Test Item Value Reference Range Interpretation Comments Neutrophils # (Auto) (test code = 751-8) 6.1 2.1-6.9 [facility] SpringsLymphocytes # (Auto)2018-11-25 06:12:00* Test Item Value Reference Range Interpretation Comments Lymphocytes # (Auto) (test code = 80998-4) 2.5 1.0-3.2 [facility] SpringsMonocytes # (Auto)2018-11-25 06:12:00* Test Item Value Reference Range Interpretation Comments Monocytes # (Auto) (test code = 742-7) 1.2 0.2-0.8 H [facility] SpringsEosinophils # (Auto)2018-11-25 06:12:00* Test Item Value Reference Range Interpretation Comments Eosinophils # (Auto) (test code = 711-2) 0.2 0.0-0.4 [facility] SpringsBasophils # (Auto)2018-11-25 06:12:00* Test Item Value Reference Range Interpretation Comments Basophils # (Auto) (test code = 704-7) 0.1 0.0-0.1 [facility] SpringsAbsolute Immature Granulocyte (auto 2018-11-25 06:12:00* Test Item Value Reference Range Interpretation Comments Absolute Immature Granulocyte (auto (zeenat t code = Absolute Immature Granulocyte (auto) 0.01 0-0.1 [facility] SpringsWhite Blood Vaqui9265-94-60 06:12:00* Test Item Value Reference Range Interpretation Comments White Blood Count (test code = 6690-2) 10.09 4.8-10.8 [facility] SpringsRed Blood Tncyz9283-10-84 06:12:00* Test Item Value Reference Range Interpretation Comments Red Blood Count (test code = 789-8) 3.20 4.3-5.7 L [facility] SpringsHemoglobin2019-08-29 06:12:00* Test Item Value Reference Range Interpretation Comments Hemoglobin (test code = 47063-6) 9.0 14.0-18.0 L [facility] SpringsHematocrit2019-08-29 06:12:00* Test Item Value Reference Range Interpretation Comments Hematocrit (test code = 4544-3) 28.1 38.2-49.6 L [facility] SpringsMean Corpuscular Znhvij9070-20-93 06:12:00* Test Item Value Reference Range Interpretation Comments Mean Corpuscular Volume (test code = 787-2) 87.8 81-99 [facility] SpringsMean Corpuscular Zgsqgpneam7966-40-32 06:12:00* Test Item Value Reference Range Interpretation Comments Mean Corpuscular Hemoglobin (test code = 785-6) 28.1 28-32 [facility] SpringsMean Corpuscular Hemoglobin Concent 2018-11-25 06:12:00* Test Item Value Reference Range Interpretation Comments Mean Corpuscular Hemoglobin Concent (test code = 786-4) 32.0 31-35 [facility] SpringsRed Cell Distribution Mmcae2311-87-32 06:12:00* Test Item Value Reference Range Interpretation Comments Red Cell Distribution Width (test code = 40530-5) 13.7 11.7 -14.4 [facility] SpringsPlatelet Rxhva9403-39-50 06:12:00* Test Item Value Reference Range Interpretation Comments Platelet Count (test code = 777-3) 185 140-360 [facility] SpringsNeutrophils (%) (Auto)2018-11-25 06:12:00 * Test Item Value Reference Range Interpretation Comments Neutrophils (%) (Auto) (test code = 51413-9) 60.5 38.7-80.0 [facility] SpringsLymphocytes (%) (Auto)2018-11-25 06:12:00 * Test Item Value Reference Range Interpretation Comments Lymphocytes (%) (Auto) (test code = 736-9) 24.7 18.0-39.1 [facility] SpringsMonocytes (%) (Auto)2018-11-25 06:12:00* Test Item Value Reference Range Interpretation Comments Monocytes (%) (Auto) (test code = 5905-5) 12.2 4.4-11.3 H [facility] SpringsEosinophils (%) (Auto)2018-11-25 06:12:00 * Test Item Value Reference Range Interpretation Comments Eosinophils (%) (Auto) (test code = 713-8) 2.0 0.0-6.0 [facility] SpringsBasophils (%) (Auto)2018-11-25 06:12:00* Test Item Value Reference Range Interpretation Comments Basophils (%) (Auto) (test code = 706-2) 0.5 0.0-1.0 [facility] SpringsIM GRANULOCYTES %2018-11-25 06:12:00* Test Item Value Reference Range Interpretation Comments IM GRANULOCYTES % (test code = IM GRANULOCYTES %) 0.1 0.0- 1.0 [facility] SpringsNeutrophils # (Auto)2018-11-25 06:12:00* Test Item Value Reference Range Interpretation Comments Neutrophils # (Auto) (test code = 751-8) 6.1 2.1-6.9 [facility] SpringsLymphocytes # (Auto)2018-11-25 06:12:00* Test Item Value Reference Range Interpretation Comments Lymphocytes # (Auto) (test code = 61546-7) 2.5 1.0-3.2 [facility] SpringsMonocytes # (Auto)2018-11-25 06:12:00* Test Item Value Reference Range Interpretation Comments Monocytes # (Auto) (test code = 742-7) 1.2 0.2-0.8 H [facility] SpringsEosinophils # (Auto)2018-11-25 06:12:00* Test Item Value Reference Range Interpretation Comments Eosinophils # (Auto) (test code = 711-2) 0.2 0.0-0.4 [facility] # (Auto)2018-11-25 06:12:00* Test Item Value Reference Range Interpretation Comments Basophils # (Auto) (test code = 704-7) 0.1 0.0-0.1 [facility] SpringsAbsolute Immature Granulocyte (auto 2018-11-25 06:12:00* Test Item Value Reference Range Interpretation Comments Absolute Immature Granulocyte (auto (zeenat t code = Absolute Immature Granulocyte (auto) 0.01 0-0.1 [facility] SpringsWhite Blood [id number] 06:12:00* Test Item Value Reference Range Interpretation Comments White Blood Count (test code = 6690-2) 10.09 4.8-10.8 [facility] SpringsRed Blood Flnwu5287-43-02 06:12:00* Test Item Value Reference Range Interpretation Comments Red Blood Count (test code = 789-8) 3.20 4.3-5.7 L [facility] SpringsHemoglobin2019-08-29 06:12:00* Test Item Value Reference Range Interpretation Comments Hemoglobin (test code = 94945-8) 9.0 14.0-18.0 L [facility] SpringsHematocrit2019-08-29 06:12:00* Test Item Value Reference Range Interpretation Comments Hematocrit (test code = 4544-3) 28.1 38.2-49.6 L [facility] SpringsMean Corpuscular Hmyvcb5943-36-56 06:12:00* Test Item Value Reference Range Interpretation Comments Mean Corpuscular Volume (test code = 787-2) 87.8 81-99 [facility] SpringsMean Corpuscular Uxjtweawhn9920-00-43 06:12:00* Test Item Value Reference Range Interpretation Comments Mean Corpuscular Hemoglobin (test code = 785-6) 28.1 28-32 [facility] SpringsMean Corpuscular Hemoglobin Concent 2018-11-25 06:12:00* Test Item Value Reference Range Interpretation Comments Mean Corpuscular Hemoglobin Concent (test code = 786-4) 32.0 31-35 [facility] SpringsRed Cell Distribution Azuvq7642-89-12 06:12:00* Test Item Value Reference Range Interpretation Comments Red Cell Distribution Width (test code = 44262-7) 13.7 11.7 -14.4 [facility] SpringsPlatelet Yobev8451-56-45 06:12:00* Test Item Value Reference Range Interpretation Comments Platelet Count (test code = 777-3) 185 140-360 [facility] SpringsNeutrophils (%) (Auto)2018-11-25 06:12:00 * Test Item Value Reference Range Interpretation Comments Neutrophils (%) (Auto) (test code = 38155-7) 60.5 38.7-80.0 [facility] SpringsLymphocytes (%) (Auto)2018-11-25 06:12:00 * Test Item Value Reference Range Interpretation Comments Lymphocytes (%) (Auto) (test code = 736-9) 24.7 18.0-39.1 [facility] SpringsMonocytes (%) (Auto)2018-11-25 06:12:00* Test Item Value Reference Range Interpretation Comments Monocytes (%) (Auto) (test code = 5905-5) 12.2 4.4-11.3 H [facility] SpringsEosinophils (%) (Auto)2018-11-25 06:12:00 * Test Item Value Reference Range Interpretation Comments Eosinophils (%) (Auto) (test code = 713-8) 2.0 0.0-6.0 [facility] SpringsBasophils (%) (Auto)2018-11-25 06:12:00* Test Item Value Reference Range Interpretation Comments Basophils (%) (Auto) (test code = 706-2) 0.5 0.0-1.0 [facility] SpringsIM GRANULOCYTES %2018-11-25 06:12:00* Test Item Value Reference Range Interpretation Comments IM GRANULOCYTES % (test code = IM GRANULOCYTES %) 0.1 0.0- 1.0 [facility] SpringsNeutrophils # (Auto)2018-11-25 06:12:00* Test Item Value Reference Range Interpretation Comments Neutrophils # (Auto) (test code = 751-8) 6.1 2.1-6.9 [facility] SpringsLymphocytes # (Auto)2018-11-25 06:12:00* Test Item Value Reference Range Interpretation Comments Lymphocytes # (Auto) (test code = 35671-4) 2.5 1.0-3.2 [facility] SpringsMonocytes # (Auto)2018-11-25 06:12:00* Test Item Value Reference Range Interpretation Comments Monocytes # (Auto) (test code = 742-7) 1.2 0.2-0.8 H [facility] SpringsEosinophils # (Auto)2018-11-25 06:12:00* Test Item Value Reference Range Interpretation Comments Eosinophils # (Auto) (test code = 711-2) 0.2 0.0-0.4 [facility] SpringsBasophils # (Auto)2018-11-25 06:12:00* Test Item Value Reference Range Interpretation Comments Basophils # (Auto) (test code = 704-7) 0.1 0.0-0.1 [facility] SpringsAbsolute Immature Granulocyte (auto 2018-11-25 06:12:00* Test Item Value Reference Range Interpretation Comments Absolute Immature Granulocyte (auto (zeenat t code = Absolute Immature Granulocyte (auto) 0.01 0-0.1 [facility] SpringsWhite Blood Stxkv7234-20-15 06:12:00* Test Item Value Reference Range Interpretation Comments White Blood Count (test code = 6690-2) 10.09 4.8-10.8 [facility] SpringsRed Blood Zsmnp6686-20-78 06:12:00* Test Item Value Reference Range Interpretation Comments Red Blood Count (test code = 789-8) 3.20 4.3-5.7 L [facility] SpringsHemoglobin2019-08-29 06:12:00* Test Item Value Reference Range Interpretation Comments Hemoglobin (test code = 19007-4) 9.0 14.0-18.0 L [facility] SpringsHematocrit2019-08-29 06:12:00* Test Item Value Reference Range Interpretation Comments Hematocrit (test code = 4544-3) 28.1 38.2-49.6 L [facility] SpringsMean Corpuscular Nceemb8233-41-54 06:12:00* Test Item Value Reference Range Interpretation Comments Mean Corpuscular Volume (test code = 787-2) 87.8 81-99 [facility] SpringsMean Corpuscular Bftvdmaotm9724-13-84 06:12:00* Test Item Value Reference Range Interpretation Comments Mean Corpuscular Hemoglobin (test code = 785-6) 28.1 28-32 [facility] SpringsMean Corpuscular Hemoglobin Concent 2018-11-25 06:12:00* Test Item Value Reference Range Interpretation Comments Mean Corpuscular Hemoglobin Concent (test code = 786-4) 32.0 31-35 [facility] SpringsRed Cell Distribution Dlgnt0208-53-43 06:12:00* Test Item Value Reference Range Interpretation Comments Red Cell Distribution Width (test code = 83870-3) 13.7 11.7 -14.4 [facility] SpringsPlatelet Yvssv3677-92-28 06:12:00* Test Item Value Reference Range Interpretation Comments Platelet Count (test code = 777-3) 185 140-360 [facility] SpringsNeutrophils (%) (Auto)2018-11-25 06:12:00 * Test Item Value Reference Range Interpretation Comments Neutrophils (%) (Auto) (test code = 83843-1) 60.5 38.7-80.0 [facility] SpringsLymphocytes (%) (Auto)2018-11-25 06:12:00 * Test Item Value Reference Range Interpretation Comments Lymphocytes (%) (Auto) (test code = 736-9) 24.7 18.0-39.1 [facility] SpringsMonocytes (%) (Auto)2018-11-25 06:12:00* Test Item Value Reference Range Interpretation Comments Monocytes (%) (Auto) (test code = 5905-5) 12.2 4.4-11.3 H [facility] SpringsEosinophils (%) (Auto)2018-11-25 06:12:00 * Test Item Value Reference Range Interpretation Comments Eosinophils (%) (Auto) (test code = 713-8) 2.0 0.0-6.0 [facility] SpringsBasophils (%) (Auto)2018-11-25 06:12:00* Test Item Value Reference Range Interpretation Comments Basophils (%) (Auto) (test code = 706-2) 0.5 0.0-1.0 [facility] SpringsIM GRANULOCYTES %2018-11-25 06:12:00* Test Item Value Reference Range Interpretation Comments IM GRANULOCYTES % (test code = IM GRANULOCYTES %) 0.1 0.0- 1.0 [facility] SpringsNeutrophils # (Auto)2018-11-25 06:12:00* Test Item Value Reference Range Interpretation Comments Neutrophils # (Auto) (test code = 751-8) 6.1 2.1-6.9 [facility] SpringsLymphocytes # (Auto)2018-11-25 06:12:00* Test Item Value Reference Range Interpretation Comments Lymphocytes # (Auto) (test code = 10039-4) 2.5 1.0-3.2 [facility] SpringsMonocytes # (Auto)2018-11-25 06:12:00* Test Item Value Reference Range Interpretation Comments Monocytes # (Auto) (test code = 742-7) 1.2 0.2-0.8 H [facility] SpringsEosinophils # (Auto)2018-11-25 06:12:00* Test Item Value Reference Range Interpretation Comments Eosinophils # (Auto) (test code = 711-2) 0.2 0.0-0.4 [facility] SpringsBasophils # (Auto)2018-11-25 06:12:00* Test Item Value Reference Range Interpretation Comments Basophils # (Auto) (test code = 704-7) 0.1 0.0-0.1 [facility] SpringsAbsolute Immature Granulocyte (auto 2018-11-25 06:12:00* Test Item Value Reference Range Interpretation Comments Absolute Immature Granulocyte (auto (zeenat t code = Absolute Immature Granulocyte (auto) 0.01 0-0.1 [facility] Ztisr1095-32-46 05:57:00* Test Item Value Reference Range Interpretation Comments Sodium Level (test code = 2951-2) 138 136-145 [facility] SpringsPotassium Emnwv6185-08-23 05:57:00* Test Item Value Reference Range Interpretation Comments Potassium Level (test code = 2823-3) 3.3 3.5-5.1 L [facility] SpringsChloride Fgrvm5296-22-82 05:57:00* Test Item Value Reference Range Interpretation Comments Chloride Level (test code = 2075-0) 105 98-107 [facility] SpringsCarbon Dioxide Friyr6593-01-38 05:57:00* Test Item Value Reference Range Interpretation Comments Carbon Dioxide Level (test code = 2028-9) 27 22- [facility] SpringsAnion Dzk6157-35-21 05:57:00* Test Item Value Reference Range Interpretation Comments Anion Gap (test code = 75528-4) 9.3 8-16 [facility] SpringsBlood Urea Ofadopik4214-33-97 05:57:00* Test Item Value Reference Range Interpretation Comments Blood Urea Nitrogen (test code = 3094-0) 15 7-26 [facility] SpringsCreatinine2019-08-29 05:57:00* Test Item Value Reference Range Interpretation Comments Creatinine (test code = 2160-0) 1.17 0.72-1.25 [facility] SpringsBUN/Creatinine Yleyk5721-16-29 05:57:00* Test Item Value Reference Range Interpretation Comments BUN/Creatinine Ratio (test code = 3097-3) 13 6-25 [facility] SpringsEstimat Glomerular Filtration Rate 2018-11-25 05:57:00* Test Item Value Reference Range Interpretation Comments Estimat Glomerular Filtration Rate (test code = 705001584) > 60 >60 Ranges were taken from the National Kidney Disease Education Program and the [facility] Kidney Foundation literature.Reference ranges:60 or greater: Aezdyg23-95 ( for 3 consecutive months): Chronic kidney disease 15 or less: Kidney failureCHRISTUS [facility] – [facility] SpringsGlucose Tsaup4342-84-37 05:57:00* Test Item Value Reference Range Interpretation Comments Glucose Level (test code = NEH7838) 247 74-118 H [facility] SpringsCalcium Smasz4388-14-14 05:57:00* Test Item Value Reference Range Interpretation Comments Calcium Level (test code = 35878-2) 8.4 8.4-10.2 [facility] Bxbcd9941-80-56 05:57:00* Test Item Value Reference Range Interpretation Comments Sodium Level (test code = 2951-2) 138 136-145 [facility] SpringsPotassium Nfocc9393-22-49 05:57:00* Test Item Value Reference Range Interpretation Comments Potassium Level (test code = 2823-3) 3.3 3.5-5.1 L [facility] SpringsChloride Bmqxz0232-32-96 05:57:00* Test Item Value Reference Range Interpretation Comments Chloride Level (test code = 2075-0) 105 98-107 [facility] SpringsCarbon Dioxide Eqxxs3630-75-01 05:57:00* Test Item Value Reference Range Interpretation Comments Carbon Dioxide Level (test code = 2028-9) 27 22-29 [facility] SpringsAnion Fju9093-79-51 05:57:00* Test Item Value Reference Range Interpretation Comments Anion Gap (test code = 87787-2) 9.3 8-16 [facility] SpringsBlood Urea Iwmljbth2935-92-33 05:57:00* Test Item Value Reference Range Interpretation Comments Blood Urea Nitrogen (test code = 3094-0) 15 7-26 [facility] SpringsCreatinine2019-08-29 05:57:00* Test Item Value Reference Range Interpretation Comments Creatinine (test code = 2160-0) 1.17 0.72-1.25 [facility] SpringsBUN/Creatinine Tpfyh8134-13-50 05:57:00* Test Item Value Reference Range Interpretation Comments BUN/Creatinine Ratio (test code = 3097-3) 13 6-25 [facility] SpringsEstimat Glomerular Filtration Rate 2018-11-25 05:57:00* Test Item Value Reference Range Interpretation Comments Estimat Glomerular Filtration Rate (test code = 607502569) > 60 >60 Ranges were taken from the National Kidney Disease Education Program and the [facility] Kidney Foundation literature.Reference ranges:60 or greater: Xtqbco84-15 ( for 3 consecutive months): Chronic kidney disease 15 or less: Kidney failureCHRISTUS [facility] – [facility] SpringsGlucose Dbrly4270-52-39 05:57:00* Test Item Value Reference Range Interpretation Comments Glucose Level (test code = MSU5171) 247 74-118 H [facility] SpringsCalcium Eysjh2222-09-14 05:57:00* Test Item Value Reference Range Interpretation Comments Calcium Level (test code = 98288-5) 8.4 8.4-10.2 [facility] Sxoht1597-97-48 05:57:00* Test Item Value Reference Range Interpretation Comments Sodium Level (test code = 2951-2) 138 136-145 [facility] SpringsPotassium Gixcv5023-69-72 05:57:00* Test Item Value Reference Range Interpretation Comments Potassium Level (test code = 2823-3) 3.3 3.5-5.1 L [facility] SpringsChloride Hcprp8129-82-65 05:57:00* Test Item Value Reference Range Interpretation Comments Chloride Level (test code = 2075-0) 105 98-107 [facility] SpringsCarbon Dioxide Xwqww6961-67-89 05:57:00* Test Item Value Reference Range Interpretation Comments Carbon Dioxide Level (test code = 2028-9) 27 22-29 [facility] SpringsAnion Srs3136-86-53 05:57:00* Test Item Value Reference Range Interpretation Comments Anion Gap (test code = 90012-1) 9.3 8-16 [facility] SpringsBlood Urea Mtbsdbpv6299-00-02 05:57:00* Test Item Value Reference Range Interpretation Comments Blood Urea Nitrogen (test code = 3094-0) 15 7-26 [facility] SpringsCreatinine2019-08-29 05:57:00* Test Item Value Reference Range Interpretation Comments Creatinine (test code = 2160-0) 1.17 0.72-1.25 [facility] SpringsBUN/Creatinine Euuij2523-06-92 05:57:00* Test Item Value Reference Range Interpretation Comments BUN/Creatinine Ratio (test code = 3097-3) 13 09-21 [facility] SpringsEstimat Glomerular Filtration Rate 2018-11-25 05:57:00* Test Item Value Reference Range Interpretation Comments Estimat Glomerular Filtration Rate (test code = 054159328) > 60 >60 Ranges were taken from the National Kidney Disease Education Program and the [facility] Kidney Foundation literature.Reference ranges:60 or greater: Pwdivc21-04 ( for 3 consecutive months): Chronic kidney disease 15 or less: Kidney failureCHRISTUS [facility] – [facility] SpringsGlucose Odeef0262-17-54 05:57:00* Test Item Value Reference Range Interpretation Comments Glucose Level (test code = XKP6005) 247 74-118 H [facility] SpringsCalcium Xayid4303-95-00 05:57:00* Test Item Value Reference Range Interpretation Comments Calcium Level (test code = 13595-3) 8.4 8.4-10.2 [facility] Otcpu7907-93-54 05:57:00* Test Item Value Reference Range Interpretation Comments Sodium Level (test code = 2951-2) 138 136-145 [facility] SpringsPotassium Exozv9346-74-79 05:57:00* Test Item Value Reference Range Interpretation Comments Potassium Level (test code = 2823-3) 3.3 3.5-5.1 L [facility] SpringsChloride Uohdm7704-35-09 05:57:00* Test Item Value Reference Range Interpretation Comments Chloride Level (test code = 2075-0) 105 98-107 [facility] SpringsCarbon Dioxide Sbsvu7164-33-27 05:57:00* Test Item Value Reference Range Interpretation Comments Carbon Dioxide Level (test code = 2028-9) 27 [facility] SpringsAnion Vkq6941-37-51 05:57:00* Test Item Value Reference Range Interpretation Comments Anion Gap (test code = 65141-3) 9.3 8-16 [facility] SpringsBlood Urea Jkmxfdeu7676-01-26 05:57:00* Test Item Value Reference Range Interpretation Comments Blood Urea Nitrogen (test code = 3094-0) 15 7- [facility] SpringsCreatinine2019-08-29 05:57:00* Test Item Value Reference Range Interpretation Comments Creatinine (test code = 2160-0) 1.17 0.72-1.25 [facility] SpringsBUN/Creatinine Gekok8503-54-02 05:57:00* Test Item Value Reference Range Interpretation Comments BUN/Creatinine Ratio (test code = 3097-3) 13 09-21 [facility] SpringsEstimat Glomerular Filtration Rate 2018-11-25 05:57:00* Test Item Value Reference Range Interpretation Comments Estimat Glomerular Filtration Rate (test code = 404702741) > 60 >60 Ranges were taken from the National Kidney Disease Education Program and the [facility] Kidney Foundation literature.Reference ranges:60 or greater: Aerdzr53-01 ( for 3 consecutive months): Chronic kidney disease 15 or less: Kidney failureCHRISTUS [facility] – [facility] SpringsGlucose Mbxxr7829-57-44 05:57:00* Test Item Value Reference Range Interpretation Comments Glucose Level (test code = SQV3778) 247 74-118 H [facility] SpringsCalcium Jionr8739-27-85 05:57:00* Test Item Value Reference Range Interpretation Comments Calcium Level (test code = 60951-8) 8.4 8.4-10.2 [facility] SpringsBlood Nedepku7875-37-68 20:52:00* Test Item Value Reference Range Interpretation Comments Blood Culture (test code = 92701078) NO GROWTH AFTER 48 HOURS [facility] SpringsUrine HMW2015-17-27 10:48:00* Test Item Value Reference Range Interpretation Comments Urine WBC (test code = 5821-4) 6-10 0-5 H [facility] SpringsUrine [id number] 10:48:00* Test Item Value Reference Range Interpretation Comments Urine RBC (test code = 46855-1) 0-5 0-5 [facility] SpringsUrine Ylcejxsn0675-53-48 10:48:00* Test Item Value Reference Range Interpretation Comments Urine Bacteria (test code = 65295-7) MODERATE NONE H [facility] SpringsUrine Epithelial Cobqg5336-85-90 10:48:00 * Test Item Value Reference Range Interpretation Comments Urine Epithelial Cells (test code = 03262-6) FEW NONE [facility] SpringsUrine [id number] 10:48:00* Test Item Value Reference Range Interpretation Comments Urine WBC (test code = 5821-4) 6-10 0-5 H [facility] SpringsUrine [id number] 10:48:00* Test Item Value Reference Range Interpretation Comments Urine RBC (test code = 45547-2) 0-5 0-5 [facility] SpringsUrine Weqepqdh7783-11-88 10:48:00* Test Item Value Reference Range Interpretation Comments Urine Bacteria (test code = 57124-2) MODERATE NONE H [facility] SpringsUrine Epithelial Nqyyt3352-21-17 10:48:00 * Test Item Value Reference Range Interpretation Comments Urine Epithelial Cells (test code = 66124-2) FEW NONE [facility] SpringsUrine [id number] 10:48:00* Test Item Value Reference Range Interpretation Comments Urine WBC (test code = 5821-4) 6-10 0-5 H [facility] SpringsUrine [id number] 10:48:00* Test Item Value Reference Range Interpretation Comments Urine RBC (test code = 36250-6) 0-5 0-5 [facility] SpringsUrine Ytxsutec5200-94-22 10:48:00* Test Item Value Reference Range Interpretation Comments Urine Bacteria (test code = 77296-9) MODERATE NONE H [facility] SpringsUrine Epithelial Ndipj8447-78-92 10:48:00 * Test Item Value Reference Range Interpretation Comments Urine Epithelial Cells (test code = 77791-1) FEW NONE [facility] SpringsUrine [id number] 10:48:00* Test Item Value Reference Range Interpretation Comments Urine WBC (test code = 5821-4) 6-10 0-5 H [facility] SpringsUrine [id number] 10:48:00* Test Item Value Reference Range Interpretation Comments Urine RBC (test code = 44032-3) 0-5 0-5 [facility] SpringsUrine Fnuipyyi8388-02-56 10:48:00* Test Item Value Reference Range Interpretation Comments Urine Bacteria (test code = 02233-5) MODERATE NONE H [facility] SpringsUrine Epithelial Pqcbx4663-94-03 10:48:00 * Test Item Value Reference Range Interpretation Comments Urine Epithelial Cells (test code = 52559-1) FEW NONE [facility] SpringsUrine [id number] 10:48:00* Test Item Value Reference Range Interpretation Comments Urine WBC (test code = 5821-4) 6-10 0-5 H [facility] SpringsUrine [id number] 10:48:00* Test Item Value Reference Range Interpretation Comments Urine RBC (test code = 19243-8) 0-5 0-5 [facility] SpringsUrine Hvlltods2960-70-93 10:48:00* Test Item Value Reference Range Interpretation Comments Urine Bacteria (test code = 50163-4) MODERATE NONE H [facility] SpringsUrine Epithelial Ookxk1681-38-58 10:48:00 * Test Item Value Reference Range Interpretation Comments Urine Epithelial Cells (test code = 17563-1) FEW NONE [facility] SpringsUrine Guzcw7537-70-39 10:24:00* Test Item Value Reference Range Interpretation Comments Urine Color (test code = 5778-6) YELLOW YELLOW [facility] SpringsUrine Fgwlunp7858-29-84 10:24:00* Test Item Value Reference Range Interpretation Comments Urine Clarity (test code = 34863-3) CLEAR CLEAR [facility] SpringsUrine Specific Lhfjgja4214-55-02 10:24:00 * Test Item Value Reference Range Interpretation Comments Urine Specific [place] (test code = 5811-5) 1.025 1.010-1.02 5 [facility] SpringsUrine [id number] 10:24:00* Test Item Value Reference Range Interpretation Comments Urine pH (test code = 20454-3) 6 5-7 [facility]Urine Leukocyte Anaegjwu9241-06-88 10:24:00* Test Item Value Reference Range Interpretation Comments Urine Leukocyte Esterase (test code = 90234-9) NEGATIVE NEGATIV E [facility] SpringsUrine Mxzrwhr1649-13-95 10:24:00* Test Item Value Reference Range Interpretation Comments Urine Nitrite (test code = 29335-9) NEGATIVE NEGATIVE [facility] Kkeamca6586-58-53 10:24:00* Test Item Value Reference Range Interpretation Comments Urine Protein (test code = 53763-4) NEGATIVE NEGATIVE [facility] Glucose (UA)2018-11-24 10:24:00* Test Item Value Reference Range Interpretation Comments Urine Glucose (UA) (test code = 82337-1) NEGATIVE NEGATIVE [facility] Zxwxvud4313-37-76 10:24:00* Test Item Value Reference Range Interpretation Comments Urine Ketones (test code = 87283-3) 1+ NEGATIVE H [facility] Sorkdieclgpj7420-43-24 10:24:00* Test Item Value Reference Range Interpretation Comments Urine Urobilinogen (test code = 53900-1) 0.2 0.2-1 [facility] Srzojppgn4929-84-27 10:24:00* Test Item Value Reference Range Interpretation Comments Urine Bilirubin (test code = 1977-8) NEGATIVE NEGATIVE [facility] Ktjdm1320-16-45 10:24:00* Test Item Value Reference Range Interpretation Comments Urine Blood (test code = 84509-9) NEGATIVE NEGATIVE [facility] Ktemh0253-37-71 10:24:00* Test Item Value Reference Range Interpretation Comments Urine Color (test code = 5778-6) YELLOW YELLOW [facility] Kmtegyc1136-62-09 10:24:00* Test Item Value Reference Range Interpretation Comments Urine Clarity (test code = 63995-9) CLEAR CLEAR [facility] Specific Mvlikzt1915-93-57 10:24:00 * Test Item Value Reference Range Interpretation Comments Urine Specific [place] (test code = 5811-5) 1.025 1.010-1.02 5 [facility] iL3979-13-26 10:24:00* Test Item Value Reference Range Interpretation Comments Urine pH (test code = 59720-6) 6 5-7 [facility] Leukocyte Kcdtgett5770-25-28 10:24:00* Test Item Value Reference Range Interpretation Comments Urine Leukocyte Esterase (test code = 49608-5) NEGATIVE NEGATIV E [facility] Vwwruzr4774-54-81 10:24:00* Test Item Value Reference Range Interpretation Comments Urine Nitrite (test code = 40822-9) NEGATIVE NEGATIVE [facility] Lahfqyb7080-05-86 10:24:00* Test Item Value Reference Range Interpretation Comments Urine Protein (test code = 67905-0) NEGATIVE NEGATIVE [facility] Glucose (UA)2018-11-24 10:24:00* Test Item Value Reference Range Interpretation Comments Urine Glucose (UA) (test code = 19520-8) NEGATIVE NEGATIVE [facility] Filbshq7789-65-86 10:24:00* Test Item Value Reference Range Interpretation Comments Urine Ketones (test code = 15513-8) 1+ NEGATIVE H [facility] Iwpmetatjbdv4487-98-74 10:24:00* Test Item Value Reference Range Interpretation Comments Urine Urobilinogen (test code = 28825-3) 0.2 0.2-1 [facility] Xkrhovijt4087-17-22 10:24:00* Test Item Value Reference Range Interpretation Comments Urine Bilirubin (test code = 1977-8) NEGATIVE NEGATIVE [facility] Ddgbi1136-83-40 10:24:00* Test Item Value Reference Range Interpretation Comments Urine Blood (test code = 72124-2) NEGATIVE NEGATIVE [facility] Pipnj4708-82-76 10:24:00* Test Item Value Reference Range Interpretation Comments Urine Color (test code = 5778-6) YELLOW YELLOW [facility] Sbeioej5744-32-42 10:24:00* Test Item Value Reference Range Interpretation Comments Urine Clarity (test code = 48458-5) CLEAR CLEAR [facility] Specific Dwlwsoe9136-08-75 10:24:00 * Test Item Value Reference Range Interpretation Comments Urine Specific [place] (test code = 5811-5) 1.025 1.010-1.02 5 [facility] iP8300-98-82 10:24:00* Test Item Value Reference Range Interpretation Comments Urine pH (test code = 85170-8) 6 5-7 [facility] Leukocyte Mjnefmuh2981-00-11 10:24:00* Test Item Value Reference Range Interpretation Comments Urine Leukocyte Esterase (test code = 97138-5) NEGATIVE NEGATIV E [facility] Kergiws5503-43-89 10:24:00* Test Item Value Reference Range Interpretation Comments Urine Nitrite (test code = 92295-2) NEGATIVE NEGATIVE [facility] Ghfcnyc2455-95-20 10:24:00* Test Item Value Reference Range Interpretation Comments Urine Protein (test code = 63904-0) NEGATIVE NEGATIVE [facility] Glucose (UA)2018-11-24 10:24:00* Test Item Value Reference Range Interpretation Comments Urine Glucose (UA) (test code = 76533-0) NEGATIVE NEGATIVE [facility] Gylszru9184-51-30 10:24:00* Test Item Value Reference Range Interpretation Comments Urine Ketones (test code = 14438-0) 1+ NEGATIVE H [facility] Khohwpwimgrm9058-07-63 10:24:00* Test Item Value Reference Range Interpretation Comments Urine Urobilinogen (test code = 07113-6) 0.2 0.2-1 [facility] Jruoitylj9653-59-74 10:24:00* Test Item Value Reference Range Interpretation Comments Urine Bilirubin (test code = 1977-8) NEGATIVE NEGATIVE [facility] Qxngh0540-79-70 10:24:00* Test Item Value Reference Range Interpretation Comments Urine Blood (test code = 96934-8) NEGATIVE NEGATIVE [facility] Ersrj8396-35-28 10:24:00* Test Item Value Reference Range Interpretation Comments Urine Color (test code = 5778-6) YELLOW YELLOW [facility] Lquguiz0957-10-36 10:24:00* Test Item Value Reference Range Interpretation Comments Urine Clarity (test code = 92759-2) CLEAR CLEAR [facility] Specific Tikeufz3154-03-18 10:24:00 * Test Item Value Reference Range Interpretation Comments Urine Specific [place] (test code = 5811-5) 1.025 1.010-1.02 5 [facility] cK3344-91-80 10:24:00* Test Item Value Reference Range Interpretation Comments Urine pH (test code = 10317-8) 6 5-7 [facility] Leukocyte Ovbsusab0750-25-72 10:24:00* Test Item Value Reference Range Interpretation Comments Urine Leukocyte Esterase (test code = 62913-4) NEGATIVE NEGATIV E [facility] Mzgoctg2832-56-04 10:24:00* Test Item Value Reference Range Interpretation Comments Urine Nitrite (test code = 59360-1) NEGATIVE NEGATIVE [facility] Rahxobc8382-01-05 10:24:00* Test Item Value Reference Range Interpretation Comments Urine Protein (test code = 17645-8) NEGATIVE NEGATIVE [facility] Glucose (UA)2018-11-24 10:24:00* Test Item Value Reference Range Interpretation Comments Urine Glucose (UA) (test code = 09657-1) NEGATIVE NEGATIVE [facility] Ghsaoii4819-14-81 10:24:00* Test Item Value Reference Range Interpretation Comments Urine Ketones (test code = 38958-1) 1+ NEGATIVE H [facility] Smnwksdwjfhy9503-54-35 10:24:00* Test Item Value Reference Range Interpretation Comments Urine Urobilinogen (test code = 58021-4) 0.2 0.2-1 [facility] Daptdtlmp0842-92-11 10:24:00* Test Item Value Reference Range Interpretation Comments Urine Bilirubin (test code = 1977-8) NEGATIVE NEGATIVE [facility] Nhcyd7454-57-75 10:24:00* Test Item Value Reference Range Interpretation Comments Urine Blood (test code = 73118-4) NEGATIVE NEGATIVE [facility] Pdcvo9141-57-46 10:24:00* Test Item Value Reference Range Interpretation Comments Urine Color (test code = 5778-6) YELLOW YELLOW [facility] Glariow9596-12-03 10:24:00* Test Item Value Reference Range Interpretation Comments Urine Clarity (test code = 10910-0) CLEAR CLEAR [facility] Specific Ybpanhe0669-55-24 10:24:00 * Test Item Value Reference Range Interpretation Comments Urine Specific [place] (test code = 5811-5) 1.025 1.010-1.02 5 [facility] mK2333-79-33 10:24:00* Test Item Value Reference Range Interpretation Comments Urine pH (test code = 88799-5) 6 5-7 [facility] Leukocyte Jvhlnqyh4463-22-35 10:24:00* Test Item Value Reference Range Interpretation Comments Urine Leukocyte Esterase (test code = 45745-0) NEGATIVE NEGATIV E [facility] Hcwnyjw4282-57-38 10:24:00* Test Item Value Reference Range Interpretation Comments Urine Nitrite (test code = 52714-7) NEGATIVE NEGATIVE [facility] Deyrirh3096-42-48 10:24:00* Test Item Value Reference Range Interpretation Comments Urine Protein (test code = 82955-4) NEGATIVE NEGATIVE [facility] Glucose (UA)2018-11-24 10:24:00* Test Item Value Reference Range Interpretation Comments Urine Glucose (UA) (test code = 21924-4) NEGATIVE NEGATIVE [facility] Fhgcgcg9619-06-71 10:24:00* Test Item Value Reference Range Interpretation Comments Urine Ketones (test code = 11579-8) 1+ NEGATIVE H [facility] Aazpmvzhvtxc8801-33-94 10:24:00* Test Item Value Reference Range Interpretation Comments Urine Urobilinogen (test code = 25186-6) 0.2 0.2-1 [facility] Umhvktxtj1136-23-70 10:24:00* Test Item Value Reference Range Interpretation Comments Urine Bilirubin (test code = 1977-8) NEGATIVE NEGATIVE [facility] Bhkty6218-28-31 10:24:00* Test Item Value Reference Range Interpretation Comments Urine Blood (test code = 55998-7) NEGATIVE NEGATIVE [facility] color oukknrmwyzmop6297-01-70 08:40:00* Test Item Value Reference Range Interpretation Comments Urine Color (test code = 5778-6) YELLOW YELLOW [facility] shklacm4315-16-58 08:40:00* Test Item Value Reference Range Interpretation Comments Urine Clarity (test code = 23853-9) [facility] Test strip 2018-11-24 08:40:00* Test Item Value Reference Range Interpretation Comments Urine Specific [place] (test code = 5811-5) 1.025 1.010-1.02 5 [facility] pH measurement by automated test icoup4557-34-71 08:40:00* Test Item Value Reference Range Interpretation Comments Urine pH (test code = 21468-5) 6 5-7 [facility] leukocyte esterase detection by automated test qeezg2310-79-08 08:40:00* Test Item Value Reference Range Interpretation Comments Urine Leukocyte Esterase (test code = 34105-1) NEGATIVE NEGATIV E [facility] nitrite detection by automated test oceal9501-87-15 08:40:00* Test Item Value Reference Range Interpretation Comments Urine Nitrite (test code = 51492-0) NEGATIVE NEGATIVE [facility] protein detection by automated test tnidj3769-50-42 08:40:00* Test Item Value Reference Range Interpretation Comments Urine Protein (test code = 04958-6) NEGATIVE NEGATIVE [facility] glucose detection by automated test pjfdq9534-49-79 08:40:00* Test Item Value Reference Range Interpretation Comments Urine Glucose (UA) (test code = 69131-1) NEGATIVE NEGATIVE [facility] ketones detection by automated test ufeiq4379-29-48 08:40:00* Test Item Value Reference Range Interpretation Comments Urine Ketones (test code = 64369-5) 1+ NEGATIVE [facility] urobilinogen measurement by test strip (mass/volume)2018-11-24 08:40:00* Test Item Value Reference Range Interpretation Comments Urine Urobilinogen (test code = 24447-0) 0.2 0.2-1 [facility] total bilirubin wbzlgegde3458-72-76 08:40:00* Test Item Value Reference Range Interpretation Comments Urine Bilirubin (test code = 1977-8) NEGATIVE NEGATIVE [facility] erythrocytes rjygexpiz6581-59-60 08:40:00* Test Item Value Reference Range Interpretation Comments Urine Blood (test code = 76817-9) NEGATIVE NEGATIVE [facility] SpringsAutomated urine sediment leukocyte count by microscopy (number/high power field)2018-11-24 08:40:00* Test Item Value Reference Range Interpretation Comments Urine WBC (test code = 5821-4) 6-10 0-5 [facility]Erythrocytes detection in urine sediment by light ikyuucztuh8589-96-73 08:40:00* Test Item Value Reference Range Interpretation Comments Urine RBC (test code = 30106-5) 0-5 0-5 [facility]acteria detection in urine sediment by light fhjnqzgcet2958-54-82 08:40:00* Test Item Value Reference Range Interpretation Comments Urine Bacteria (test code = 09610-3) MODERATE NONE [facility] SpringsEpithelial cells detection in urine sediment by light kckgnyfdoa5405-29-93 08:40:00* Test Item Value Reference Range Interpretation Comments Urine Epithelial Cells (test code = 91585-5) FEW NONE [facility] SpringsLipase2019-08-28 03:50:00* Test Item Value Reference Range Interpretation Comments Lipase (test code = 3040-3) < 4 8-78 L [facility] 1 VEW - QXCW7246-28-15 18:41:00 [facility] [address] [address] Patient Name: BREE LINDSAY MR #: [id number] : 1975 Age/Sex: 42/M Req #: [id number] Adm Physician: ISACC JAVED MD Ordered by: NEIL PEREZ MD Report #: [id number] Location: [facility] Room/Bed: [address] [place] [address] Procedure: [id number] HOPD/CXR 1 VEW - [facility] Exam Date: 11/22/18 Exam Time : 1755 REPORT STATUS: Signed EXA MINATION: CXR 1 - [facility] COMPARISON: None INDICATION: Hemateme sis [id number] DISCUSSION: Frontal view of the chest [...] on 11/22/181843 COPY TO: NEIL PEREZ MD PKUPNP9706-02-74 11:31:00* Test Item Value Reference Range Interpretation Comments GLUBED (test code = GLUBED) 163 mg/dL 74-106 H Performed by certified blanker operator at [facility] FNHJWY5940-38-22 05:52:00* Test Item Value Reference Range Interpretation Comments GLUBED (test code = GLUBED) 339 mg/dL 74-106 H Performed by certified blanker operator at [facility] BASIC METABOLIC QPLBC1460-03-64 05:04:00* Test Item Value Reference Range Interpretation [...] code = CA) 8.6 mg/dL 8.5-10.1 N UTUPUXCLIU0230-29-70 05:04:00* Test Item Value Reference Range Interpretation Comments PHOSPHORUS (test code = PHOS) 2.5 mg/dL 2.5-4.9 N TWDNCNNFG6388-54-54 05:04:00* Test Item Value Reference Range Interpretation Comments MAGNESIUM (test code = MAG) 1.7 mg/dL 1.8-2.4 L CBC W/AUTO [id number] 04:58:00* Test Item Value Reference Range Interpretation [...] (test code = MDIFF) NO BASIC METABOLIC BISXO7600-39-97 04:54:00* Test Item Value Reference Range Interpretation [...] CALCIUM (test code = CA) mg/dL 8.5-10.1 EXSSPIKFLC9071-96-76 04:54:00* Test Item Value Reference Range Interpretation Comments PHOSPHORUS (test code = PHOS) mg/dL 2.5-4.9 XWQBCAJWG6583-90-72 04:54:00* Test Item Value Reference Range Interpretation Comments MAGNESIUM (test code = MAG) mg/dL 1.8-2.4 WETWZP9963-14-68 21:18:00* Test Item Value Reference Range Interpretation Comments GLUBED (test code = GLUBED) 363 mg/dL 74-106 H Performed by certified blanker operator at [facility] TTUK4W3747-30-32 18:20:00* Test Item Value Reference Range Interpretation Comments GLYCOSYLATED HEMOGLOBIN (HA1C) (test code = GLYHGB) 9.0 % HbA1 4. 8-6.0 H ESTIMATED AVERAGE GLUCOSE (test code = EAG) 212 MG/DL LAJHBE4015-62-91 17:42:00* Test Item Value Reference Range Interpretation Comments GLUBED (test code = GLUBED) 216 mg/dL 74-106 H Performed by certified blanker operator at [facility] XGONQE0477-37-32 13:09:00* Test Item Value Reference Range Interpretation Comments GLUBED (test code = GLUBED) 209 mg/dL 74-106 H Performed by certified blanker operator at [facility] LACTIC XEAX7465-54-32 08:53:00* Test Item Value Reference Range Interpretation [...] taking into account the patients history. PROTHROMBIN FZZI6652-14-32 07:23:00* Test Item Value Reference Range Interpretation [...] (2.5-3.5) IS PATIENT ON ANTICOAGULANTS? NTHROMBOPLASTIN TIME SKJIZIB9834-28-57 07:23:00* Test Item Value Reference Range Interpretation Comments THROMBOPLASTIN TIME PARTIAL (test code = PTT) 26.2 seconds 25.0-36. 5 N IS PATIENT ON ANTICOAGULANTS? NBASIC METABOLIC [id number] 06:41:00* Test Item Value Reference Range Interpretation [...] CA) 9.7 mg/dL 8.5-10.1 N HEPATIC FUNCTION SJHCI2003-44-37 06:41:00* Test Item Value Reference Range Interpretation [...] reference range due to change in reagent. NHQKHH4681-32-91 06:41:00* Test Item Value Reference Range Interpretation Comments LIPASE (test code = LIP) 16 U/L 73.0-393.0 L QLRMUKLC-V6426-68-03 06:41:00* Test Item Value Reference Range Interpretation Comments TROPONIN-I (test code = TROPI) <0.015 ng/mL 0-0.045 N BASIC METABOLIC [id number] 06:27:00* Test Item Value Reference Range Interpretation [...] code = CA) mg/dL 8.5-10.1 HEPATIC FUNCTION [id number] 06:27:00* Test Item Value Reference Range Interpretation [...] TOTAL (test code = ALKP) IUnit/L 45-117 FBURGI7096-33-21 06:27:00* Test Item Value Reference Range Interpretation Comments LIPASE (test code = LIP) U/L 73.0-393.0 SXSSGEEJ-G6401-85-03 06:27:00* Test Item Value Reference Range Interpretation Comments TROPONIN-I (test code = TROPI) ng/mL 0-0.045 POC LACTIC KCKK4831-28-61 06:23:00* Test Item Value Reference Range Interpretation Comments POC LACTIC ACID (test code = POCLAC) 1.46 MMOL/L 0.4-2.2 N CBC W/O [id number] 06:22:00* Test Item Value Reference Range Interpretation [...] = MPV) 11.6 fL 6.7-11.0 H GASTRIC ZULYMJSL6762-52-65 00:53:[address] [place] [address] Patient Name: BREE LINDSAY MR #: [id number] : 1975 Age/Sex: 42/M [facility] #: [id number] Re #: [id number] [facility] Physician: Ordered by: TAVIA GARCIA MD Report #: [id number] [facility] Room[facility]: Procedure: N M/GASTRIC EMPTYING Exam Date: Exam Time: REPORT STATUS: Signed Solid-phase gastric emptying study Reason for examination: GERD with esophagitis; gastritis The protocol used for this study is based on the Consensus Recommendations fo r Gastric Scintigraphy by the [place] and the [...] on 09/21/1856 COPY TO: TAVIA GARCIA MD Vtvbum7498-40-95 15:34:00* Test Item Value Reference Range Interpretation Comments Lipase (test code = 3040-3) < 4 8-78 L [facility]2019-05-14 15:34:00* Test Item Value Reference Range Interpretation Comments Lipase (test code = 3040-3) < 4 8-78 L [facility] SpringsGLUBED2019-05-11 11:39:00* Test Item Value Reference Range Interpretation Comments GLUBED (test code = GLUBED) 102 mg/dL 74-106 N Performed by certified blanker operator at [facility] BASIC METABOLIC [id number] 11:27:00* Test Item Value Reference Range Interpretation [...] CA) 8.6 mg/dL 8.5-10.1 N CBC W/AUTO [id number] 11:02:00* Test Item Value Reference Range Interpretation [...] DIFF REQUIRED (test code = MDIFF) NO [id number] 07:41:00* Test Item Value Reference Range Interpretation Comments GLUBED (test code = GLUBED) 111 mg/dL 74-106 H Performed by certified blanker operator at [facility] MDVEVM4477-79-59 21:20:00* Test Item Value Reference Range Interpretation Comments GLUBED (test code = GLUBED) 201 mg/dL 74-106 H Performed by certified blanker operator at [facility] [id number] 16:36:00* Test Item Value Reference Range Interpretation Comments GLUBED (test code = GLUBED) 214 mg/dL 74-106 H Performed by certified blanker operator at [facility] [id number] 12:00:00* Test Item Value Reference Range Interpretation Comments GLUBED (test code = GLUBED) 266 mg/dL 74-106 H Performed by certified blanker operator at [facility] [id number] 07:31:00* Test Item Value Reference Range Interpretation Comments GLUBED (test code = GLUBED) 252 mg/dL 74-106 H Performed by certified blanker operator at [facility] BGMORX3603-84-81 21:20:00* Test Item Value Reference Range Interpretation Comments GLUBED (test code = GLUBED) 109 mg/dL 74-106 H Performed by certified blanker operator at [facility] ZLWKUO9652-97-24 16:47:00* Test Item Value Reference Range Interpretation Comments GLUBED (test code = GLUBED) 328 mg/dL 74-106 H Performed by certified blanker operator at [facility] [id number] 11:32:00* Test Item Value Reference Range Interpretation Comments GLUBED (test code = GLUBED) 145 mg/dL 74-106 H Performed by certified blanker operator at [facility] TYXYLQ8898-89-15 07:54:00* Test Item Value Reference Range Interpretation Comments GLUBED (test code = GLUBED) 347 mg/dL 74-106 H Performed by certified blanker operator at [facility] CBC W/AUTO [id number] 07:28:00* Test Item Value Reference Range Interpretation [...] (test code = MDIFF) NO BASIC METABOLIC [id number] 07:10:00* Test Item Value Reference Range Interpretation [...] CA) 8.8 mg/dL 8.5-10.1 N BASIC METABOLIC [id number] 06:59:00* Test Item Value Reference Range Interpretation [...] CALCIUM (test code = CA) mg/dL 8.5-10.1 [id number] 22:44:00* Test Item Value Reference Range Interpretation Comments GLUBED (test code = GLUBED) 364 mg/dL 74-106 H Performed by certified blanker operator at [facility] BASIC METABOLIC [id number] 17:43:00* Test Item Value Reference Range Interpretation [...] CA) 9.9 mg/dL 8.5-10.1 N HEPATIC FUNCTION [id number] 17:43:00* Test Item Value Reference Range Interpretation [...] reference range due to change in reagent. [id number] 17:43:00* Test Item Value Reference Range Interpretation Comments LIPASE (test code = LIP) 18 U/L 73.0-393.0 L BASIC METABOLIC [id number] 17:22:00* Test Item Value Reference Range Interpretation [...] code = CA) mg/dL 8.5-10.1 HEPATIC FUNCTION [id number] 17:22:00* Test Item Value Reference Range Interpretation [...] TOTAL (test code = ALKP) IUnit/L 45-117 [id number] 17:22:00* Test Item Value Reference Range Interpretation Comments LIPASE (test code = LIP) U/L 73.0-393.0 URINALYSIS [id number] 17:00:00* Test Item Value Reference Range Interpretation [...] FEW #/LPF FEW Urine Source? Clean CatchURINALYSIS [id number] 16:55:00* Test Item Value Reference Range Interpretation [...] HPF NONE Urine Source? Clean CatchCBC W/O [id number] 16:40:00* Test Item Value Reference Range Interpretation [...] MPV) 10.7 fL 6.7-11.0 N CBC W/O [id number] 16:37:00* Test Item Value Reference Range Interpretation [...] (test code = MPV) fL 6.7-11.0 Bedside Iugkpnl4860-02-65 08:08:00* Test Item Value Reference Range Interpretation Comments Bedside Glucose (test code = 71052-9) 217 70-120 H Meter ID: [id number] [facility] Glucose 2018-07-07 08:08:00* Test Item Value Reference Range Interpretation Comments Bedside Glucose (test code = 23471-4) 217 70-120 H Meter ID: [id number] [facility] Glucose 2018-07-07 08:08:00* Test Item Value Reference Range Interpretation Comments Bedside Glucose (test code = 45835-3) 217 70-120 H Meter ID: [id number] [facility] Level 2018-07-07 06:31:00* Test Item Value Reference Range Interpretation Comments Magnesium Level (test code = 26068-6) 1.4 1.3-2.1 [facility]2019-04-10 06:31:00* Test Item Value Reference Range Interpretation Comments Magnesium Level (test code = 82940-6) 1.4 1.3-2.1 [facility]2019-04-10 06:31:00* Test Item Value Reference Range Interpretation Comments Magnesium Level (test code = 40542-5) 1.4 1.3-2.1 [facility]2019-04-10 06:31:00* Test Item Value Reference Range Interpretation Comments Magnesium Level (test code = 66816-2) 1.4 1.3-2.1 [facility]2019-04-10 06:27:00* Test Item Value Reference Range Interpretation Comments Sodium Level (test code = 2951-2) 137 136-145 [facility] SpringsPotassium Alpte0052-02-16 06:27:00* Test Item Value Reference Range Interpretation Comments Potassium Level (test code = 2823-3) 2.7 3.5-5.1 LL Results repeated and called to [place] at 0624 on 07/07/18 by Lisa henry Read back and verified.[facility] SpringsChloride Level 2018-07-07 06:27:00* Test Item Value Reference Range Interpretation Comments Chloride Level (test code = 2075-0) 96 98-107 L [facility] SpringsCarbon Dioxide Gunjd8510-38-10 06:27:00* Test Item Value Reference Range Interpretation Comments Carbon Dioxide Level (test code = 2028-9) 32 22-29 H [facility] SpringsAnion Xgo6240-26-07 06:27:00* Test Item Value Reference Range Interpretation Comments Anion Gap (test code = 06356-8) 11.7 8-16 [facility] SpringsBlood Urea Tafsobcr3614-67-03 06:27:00* Test Item Value Reference Range Interpretation Comments Blood Urea Nitrogen (test code = 3094-0) 6 7-26 L [facility] SpringsCreatinine2019-04-10 06:27:00* Test Item Value Reference Range Interpretation Comments Creatinine (test code = 2160-0) 0.85 0.72-1.25 [facility] SpringsBUN/Creatinine Txxnb6521-16-84 06:27:00* Test Item Value Reference Range Interpretation Comments BUN/Creatinine Ratio (test code = 3097-3) 7 6-25 [facility] SpringsEstimat Glomerular Filtration Rate 2018-07-07 06:27:00* Test Item Value Reference Range Interpretation Comments Estimat Glomerular Filtration Rate (test code = 612597161) > 60 >60 Ranges were taken from the National Kidney Disease Education Program and the [facility] literature.Reference ranges:60 or greater: [id number] ( for 3 consecutive months): Chronic kidney disease 15 or less: Kidney failureCHRISTUS [facility] – [facility] SpringsGlucose Gffjd5488-94-79 06:27:00* Test Item Value Reference Range Interpretation Comments Glucose Level (test code = MNV5878) 136 74-118 H [facility] SpringsCalcium Dfsgz4570-94-51 06:27:00* Test Item Value Reference Range Interpretation Comments Calcium Level (test code = 91506-9) 8.4 8.4-10.2 [facility] SpringsTotal Swczlqlcy8686-06-46 06:27:00* Test Item Value Reference Range Interpretation Comments Total Bilirubin (test code = 1975-2) 0.5 0.2-1.2 [facility] SpringsAspartate Amino Transf (AST/SGOT) 2018-07-07 06:27:00* Test Item Value Reference Range Interpretation Comments Aspartate Amino Transf (AST/SGOT) (test code = Aspartate Amino Transf (AST/SGOT)) 12 5-34 [facility] SpringsAlanine Aminotransferase (ALT/SGPT) 2018-07-07 06:27:00* Test Item Value Reference Range Interpretation Comments Alanine Aminotransferase (ALT/SGPT) (test code = 1742-6) < 6 0-55 [facility] SpringsTotal Tsybhuh6346-24-43 06:27:00* Test Item Value Reference Range Interpretation Comments Total Protein (test code = 2885-2) 5.8 6.5-8.1 L [facility] SpringsAlbumin2019-04-10 06:27:00* Test Item Value Reference Range Interpretation Comments Albumin (test code = 1751-7) 3.1 3.5-5.0 L [facility] SpringsGlobulin2019-04-10 06:27:00* Test Item Value Reference Range Interpretation Comments Globulin (test code = 29326-7) 2.7 2.3-3.5 [facility] SpringsAlbumin/Globulin Jifjm6583-25-61 06:27:00 * Test Item Value Reference Range Interpretation Comments Albumin/Globulin Ratio (test code = 1759-0) 1.1 0.8-2.0 [facility] SpringsAlkaline Ryzdvoavtfg6000-14-71 06:27:00* Test Item Value Reference Range Interpretation Comments Alkaline Phosphatase (test code = 6768-6) 68 40-150 [facility] Qztlo5501-17-54 06:27:00* Test Item Value Reference Range Interpretation Comments Sodium Level (test code = 2951-2) 137 136-145 [facility] SpringsPotassium Lawqz6844-63-78 06:27:00* Test Item Value Reference Range Interpretation Comments Potassium Level (test code = 2823-3) 2.7 3.5-5.1 LL Results repeated and called to [place] at 0624 on 07/07/18 by Lisa henry Read back and verified.[facility] SpringsChloride Level 2018-07-07 06:27:00* Test Item Value Reference Range Interpretation Comments Chloride Level (test code = 2075-0) 96 98-107 L [facility] SpringsCarbon Dioxide Aqitz3768-11-87 06:27:00* Test Item Value Reference Range Interpretation Comments Carbon Dioxide Level (test code = 2028-9) 32 22-29 H [facility] SpringsAnion Fjv5402-03-79 06:27:00* Test Item Value Reference Range Interpretation Comments Anion Gap (test code = 73471-4) 11.7 8-16 [facility] SpringsBlood Urea Nofufzas1767-90-91 06:27:00* Test Item Value Reference Range Interpretation Comments Blood Urea Nitrogen (test code = 3094-0) 6 7-26 L [facility] SpringsCreatinine2019-04-10 06:27:00* Test Item Value Reference Range Interpretation Comments Creatinine (test code = 2160-0) 0.85 0.72-1.25 [facility] SpringsBUN/Creatinine Cljus4300-58-94 06:27:00* Test Item Value Reference Range Interpretation Comments BUN/Creatinine Ratio (test code = 3097-3) 7 6-25 [facility] SpringsEstimat Glomerular Filtration Rate 2018-07-07 06:27:00* Test Item Value Reference Range Interpretation Comments Estimat Glomerular Filtration Rate (test code = 886733362) > 60 >60 Ranges were taken from the National Kidney Disease Education Program and the [facility] literature.Reference ranges:60 or greater: [id number] ( for 3 consecutive months): Chronic kidney disease 15 or less: Kidney failureCHRISTUS [facility] SpringsGlucose Ovdob6349-40-33 06:27:00* Test Item Value Reference Range Interpretation Comments Glucose Level (test code = TRI4451) 136 74-118 H [facility] SpringsCalcium Yspwu7685-47-63 06:27:00* Test Item Value Reference Range Interpretation Comments Calcium Level (test code = 18168-3) 8.4 8.4-10.2 [facility] SpringsTotal Zdukuhmmm8731-23-77 06:27:00* Test Item Value Reference Range Interpretation Comments Total Bilirubin (test code = 1975-2) 0.5 0.2-1.2 [facility] SpringsAspartate Amino Transf (AST/SGOT) 2018-07-07 06:27:00* Test Item Value Reference Range Interpretation Comments Aspartate Amino Transf (AST/SGOT) (test code = Aspartate Amino Transf (AST/SGOT)) 12 5-34 [facility] SpringsAlanine Aminotransferase (ALT/SGPT) 2018-07-07 06:27:00* Test Item Value Reference Range Interpretation Comments Alanine Aminotransferase (ALT/SGPT) (test code = 1742-6) < 6 0-55 [facility] SpringsTotal Umnwptx7936-07-51 06:27:00* Test Item Value Reference Range Interpretation Comments Total Protein (test code = 2885-2) 5.8 6.5-8.1 L [facility] SpringsAlbumin2019-04-10 06:27:00* Test Item Value Reference Range Interpretation Comments Albumin (test code = 1751-7) 3.1 3.5-5.0 L [facility] SpringsGlobulin2019-04-10 06:27:00* Test Item Value Reference Range Interpretation Comments Globulin (test code = 48528-9) 2.7 2.3-3.5 [facility] SpringsAlbumin/Globulin Pbbkp5820-58-07 06:27:00 * Test Item Value Reference Range Interpretation Comments Albumin/Globulin Ratio (test code = 1759-0) 1.1 0.8-2.0 [facility] SpringsAlkaline Yskghcmylib6339-53-27 06:27:00* Test Item Value Reference Range Interpretation Comments Alkaline Phosphatase (test code = 6768-6) 68 40-150 [facility]odium Xewaq3816-72-91 06:27:00* Test Item Value Reference Range Interpretation Comments Sodium Level (test code = 2951-2) 137 136-145 [facility] SpringsPotassium Puyyb6470-10-76 06:27:00* Test Item Value Reference Range Interpretation Comments Potassium Level (test code = 2823-3) 2.7 3.5-5.1 LL Results repeated and called to [place] at 0624 on 07/07/18 by Lisa henry Read back and verified.[facility] SpringsChloride Level 2018-07-07 06:27:00* Test Item Value Reference Range Interpretation Comments Chloride Level (test code = 2075-0) 96 98-107 L [facility] SpringsCarbon Dioxide Qnljs8422-53-26 06:27:00* Test Item Value Reference Range Interpretation Comments Carbon Dioxide Level (test code = 2028-9) 32 22-29 H [facility] SpringsAnion Rar3245-68-47 06:27:00* Test Item Value Reference Range Interpretation Comments Anion Gap (test code = 74075-5) 11.7 8-16 [facility] SpringsBlood Urea Xpxvsekn1587-10-12 06:27:00* Test Item Value Reference Range Interpretation Comments Blood Urea Nitrogen (test code = 3094-0) 6 7-26 L [facility] SpringsCreatinine2019-04-10 06:27:00* Test Item Value Reference Range Interpretation Comments Creatinine (test code = 2160-0) 0.85 0.72-1.25 [facility] SpringsBUN/Creatinine Tqxwb4979-14-62 06:27:00* Test Item Value Reference Range Interpretation Comments BUN/Creatinine Ratio (test code = 3097-3) 7 6-25 [facility] SpringsEstimat Glomerular Filtration Rate 2018-07-07 06:27:00* Test Item Value Reference Range Interpretation Comments Estimat Glomerular Filtration Rate (test code = 602414450) > 60 >60 Ranges were taken from the National Kidney Disease Education Program and the [facility] literature.Reference ranges:60 or greater: Ytktyg29-44 ( for 3 consecutive months): Chronic kidney disease 15 or less: Kidney failureCHRISTUS [facility] SpringsGlucose Ppdro5316-40-38 06:27:00* Test Item Value Reference Range Interpretation Comments Glucose Level (test code = EFD4023) 136 74-118 H [facility] SpringsCalcium Glnst7612-38-41 06:27:00* Test Item Value Reference Range Interpretation Comments Calcium Level (test code = 35255-8) 8.4 8.4-10.2 [facility] SpringsTotal Vifxdidgf9939-65-22 06:27:00* Test Item Value Reference Range Interpretation Comments Total Bilirubin (test code = 1975-2) 0.5 0.2-1.2 [facility] SpringsAspartate Amino Transf (AST/SGOT) 2018-07-07 06:27:00* Test Item Value Reference Range Interpretation Comments Aspartate Amino Transf (AST/SGOT) (test code = Aspartate Amino Transf (AST/SGOT)) 12 5-34 [facility] SpringsAlanine Aminotransferase (ALT/SGPT) 2018-07-07 06:27:00* Test Item Value Reference Range Interpretation Comments Alanine Aminotransferase (ALT/SGPT) (test code = 1742-6) < 6 0-55 [facility] SpringsTotal Lkpliyc6750-98-49 06:27:00* Test Item Value Reference Range Interpretation Comments Total Protein (test code = 2885-2) 5.8 6.5-8.1 L [facility] SpringsAlbumin2019-04-10 06:27:00* Test Item Value Reference Range Interpretation Comments Albumin (test code = 1751-7) 3.1 3.5-5.0 L [facility] SpringsGlobulin2019-04-10 06:27:00* Test Item Value Reference Range Interpretation Comments Globulin (test code = 55446-9) 2.7 2.3-3.5 [facility] SpringsAlbumin/Globulin Jwjpb0249-02-53 06:27:00 * Test Item Value Reference Range Interpretation Comments Albumin/Globulin Ratio (test code = 1759-0) 1.1 0.8-2.0 [facility] SpringsAlkaline Tzwrnoioyml2991-67-10 06:27:00* Test Item Value Reference Range Interpretation Comments Alkaline Phosphatase (test code = 6768-6) 68 40-150 [facility] SpringsTotal Ztonfquwi3110-73-84 06:27:00* Test Item Value Reference Range Interpretation Comments Total Bilirubin (test code = 1975-2) 0.5 0.2-1.2 [facility] SpringsAspartate Amino Transf (AST/SGOT) 2018-07-07 06:27:00* Test Item Value Reference Range Interpretation Comments Aspartate Amino Transf (AST/SGOT) (test code = Aspartate Amino Transf (AST/SGOT)) 12 5-34 [facility] SpringsAlanine Aminotransferase (ALT/SGPT) 2018-07-07 06:27:00* Test Item Value Reference Range Interpretation Comments Alanine Aminotransferase (ALT/SGPT) (test code = 1742-6) < 6 0-55 [facility] Dokmefr1624-73-32 06:27:00* Test Item Value Reference Range Interpretation Comments Total Protein (test code = 2885-2) 5.8 6.5-8.1 L [facility] SpringsAlbumin2019-04-10 06:27:00* Test Item Value Reference Range Interpretation Comments Albumin (test code = 1751-7) 3.1 3.5-5.0 L [facility] SpringsGlobulin2019-04-10 06:27:00* Test Item Value Reference Range Interpretation Comments Globulin (test code = 86619-5) 2.7 2.3-3.5 [facility] SpringsAlbumin/Globulin Ebztl8061-72-38 06:27:00 * Test Item Value Reference Range Interpretation Comments Albumin/Globulin Ratio (test code = 1759-0) 1.1 0.8-2.0 [facility] SpringsAlkaline Mycqtdgnuyr9130-86-85 06:27:00* Test Item Value Reference Range Interpretation Comments Alkaline Phosphatase (test code = 6768-6) 68 40-150 [facility] SpringsTotal Kbrknsunf0723-79-96 06:27:00* Test Item Value Reference Range Interpretation Comments Total Bilirubin (test code = 1975-2) 0.5 0.2-1.2 [facility] SpringsAspartate Amino Transf (AST/SGOT) 2018-07-07 06:27:00* Test Item Value Reference Range Interpretation Comments Aspartate Amino Transf (AST/SGOT) (test code = Aspartate Amino Transf (AST/SGOT)) 12 5-34 [facility] SpringsAlanine Aminotransferase (ALT/SGPT) 2018-07-07 06:27:00* Test Item Value Reference Range Interpretation Comments Alanine Aminotransferase (ALT/SGPT) (test code = 1742-6) < 6 0-55 [facility] Wlqfyby6250-49-80 06:27:00* Test Item Value Reference Range Interpretation Comments Total Protein (test code = 2885-2) 5.8 6.5-8.1 L [facility] SpringsAlbumin2019-04-10 06:27:00* Test Item Value Reference Range Interpretation Comments Albumin (test code = 1751-7) 3.1 3.5-5.0 L [facility] SpringsGlobulin2019-04-10 06:27:00* Test Item Value Reference Range Interpretation Comments Globulin (test code = 90971-7) 2.7 2.3-3.5 [facility] SpringsAlbumin/Globulin Edaqd3082-86-25 06:27:00 * Test Item Value Reference Range Interpretation Comments Albumin/Globulin Ratio (test code = 1759-0) 1.1 0.8-2.0 [facility] SpringsAlkaline Vsvuflouohb5309-98-04 06:27:00* Test Item Value Reference Range Interpretation Comments Alkaline Phosphatase (test code = 6768-6) 68 40-150 [facility] SpringsTotal Dgmrpcybf9566-40-20 06:27:00* Test Item Value Reference Range Interpretation Comments Total Bilirubin (test code = 1975-2) 0.5 0.2-1.2 [facility] SpringsAspartate Amino Transf (AST/SGOT) 2018-07-07 06:27:00* Test Item Value Reference Range Interpretation Comments Aspartate Amino Transf (AST/SGOT) (test code = Aspartate Amino Transf (AST/SGOT)) 12 5-34 [facility] SpringsAlanine Aminotransferase (ALT/SGPT) 2018-07-07 06:27:00* Test Item Value Reference Range Interpretation Comments Alanine Aminotransferase (ALT/SGPT) (test code = 1742-6) < 6 0-55 [facility] SpringsTotal Mghjogm4919-44-02 06:27:00* Test Item Value Reference Range Interpretation Comments Total Protein (test code = 2885-2) 5.8 6.5-8.1 L [facility] SpringsAlbumin2019-04-10 06:27:00* Test Item Value Reference Range Interpretation Comments Albumin (test code = 1751-7) 3.1 3.5-5.0 L [facility] SpringsGlobulin2019-04-10 06:27:00* Test Item Value Reference Range Interpretation Comments Globulin (test code = 88829-2) 2.7 2.3-3.5 [facility] SpringsAlbumin/Globulin Fsrqk7045-00-08 06:27:00 * Test Item Value Reference Range Interpretation Comments Albumin/Globulin Ratio (test code = 1759-0) 1.1 0.8-2.0 [facility] SpringsAlkaline Xmstdgfpfkq6982-84-37 06:27:00* Test Item Value Reference Range Interpretation Comments Alkaline Phosphatase (test code = 6768-6) 68 40-150 [facility] SpringsWhite Blood Tqcze9191-48-09 05:57:00* Test Item Value Reference Range Interpretation Comments White Blood Count (test code = 6690-2) 7.71 4.8-10.8 [facility] SpringsRed Blood Yqnvr3689-09-67 05:57:00* Test Item Value Reference Range Interpretation Comments Red Blood Count (test code = 789-8) 3.90 4.3-5.7 L [facility] SpringsHemoglobin2019-04-10 05:57:00* Test Item Value Reference Range Interpretation Comments Hemoglobin (test code = 86988-3) 11.2 14.0-18.0 L [facility] SpringsHematocrit2019-04-10 05:57:00* Test Item Value Reference Range Interpretation Comments Hematocrit (test code = 4544-3) 33.8 38.2-49.6 L [facility] SpringsMean Corpuscular Ydohfe9030-81-09 05:57:00* Test Item Value Reference Range Interpretation Comments Mean Corpuscular Volume (test code = 787-2) 86.7 81-99 [facility] SpringsMean Corpuscular Solgyshvov3498-58-38 05:57:00* Test Item Value Reference Range Interpretation Comments Mean Corpuscular Hemoglobin (test code = 785-6) 28.7 28-32 [facility] SpringsMean Corpuscular Hemoglobin Concent 2018-07-07 05:57:00* Test Item Value Reference Range Interpretation Comments Mean Corpuscular Hemoglobin Concent (test code = 786-4) 33.1 31-35 [facility] SpringsRed Cell Distribution Bjvzu5486-86-40 05:57:00* Test Item Value Reference Range Interpretation Comments Red Cell Distribution Width (test code = 16351-4) 13.2 11.7 -14.4 [facility] SpringsPlatelet Pshqv5895-72-93 05:57:00* Test Item Value Reference Range Interpretation Comments Platelet Count (test code = 777-3) 182 140-360 [facility] SpringsNeutrophils (%) (Auto)2018-07-07 05:57:00 * Test Item Value Reference Range Interpretation Comments Neutrophils (%) (Auto) (test code = 37881-5) 54.0 38.7-80.0 [facility] SpringsLymphocytes (%) (Auto)2018-07-07 05:57:00 * Test Item Value Reference Range Interpretation Comments Lymphocytes (%) (Auto) (test code = 736-9) 20.6 18.0-39.1 [facility] SpringsMonocytes (%) (Auto)2018-07-07 05:57:00* Test Item Value Reference Range Interpretation Comments Monocytes (%) (Auto) (test code = 5905-5) 19.5 4.4-11.3 H [facility] SpringsEosinophils (%) (Auto)2018-07-07 05:57:00 * Test Item Value Reference Range Interpretation Comments Eosinophils (%) (Auto) (test code = 713-8) 5.3 0.0-6.0 [facility] SpringsBasophils (%) (Auto)2018-07-07 05:57:00* Test Item Value Reference Range Interpretation Comments Basophils (%) (Auto) (test code = 706-2) 0.5 0.0-1.0 [facility] SpringsIM GRANULOCYTES %2018-07-07 05:57:00* Test Item Value Reference Range Interpretation Comments IM GRANULOCYTES % (test code = IM GRANULOCYTES %) 0.1 0.0- 1.0 [facility] SpringsNeutrophils # (Auto)2018-07-07 05:57:00* Test Item Value Reference Range Interpretation Comments Neutrophils # (Auto) (test code = 751-8) 4.2 2.1-6.9 [facility] SpringsLymphocytes # (Auto)2018-07-07 05:57:00* Test Item Value Reference Range Interpretation Comments Lymphocytes # (Auto) (test code = 80798-3) 1.6 1.0-3.2 [facility] SpringsMonocytes # (Auto)2018-07-07 05:57:00* Test Item Value Reference Range Interpretation Comments Monocytes # (Auto) (test code = 742-7) 1.5 0.2-0.8 H [facility] SpringsEosinophils # (Auto)2018-07-07 05:57:00* Test Item Value Reference Range Interpretation Comments Eosinophils # (Auto) (test code = 711-2) 0.4 0.0-0.4 [facility] SpringsBasophils # (Auto)2018-07-07 05:57:00* Test Item Value Reference Range Interpretation Comments Basophils # (Auto) (test code = 704-7) 0.0 0.0-0.1 [facility] SpringsAbsolute Immature Granulocyte (auto 2018-07-07 05:57:00* Test Item Value Reference Range Interpretation Comments Absolute Immature Granulocyte (auto (zeenat t code = Absolute Immature Granulocyte (auto) 0.01 0-0.1 [facility] SpringsWhite Blood Mmnmb6844-87-08 05:57:00* Test Item Value Reference Range Interpretation Comments White Blood Count (test code = 6690-2) 7.71 4.8-10.8 [facility] SpringsRed Blood Upcjo7059-07-16 05:57:00* Test Item Value Reference Range Interpretation Comments Red Blood Count (test code = 789-8) 3.90 4.3-5.7 L [facility] SpringsHemoglobin2019-04-10 05:57:00* Test Item Value Reference Range Interpretation Comments Hemoglobin (test code = 75153-5) 11.2 14.0-18.0 L [facility] SpringsHematocrit2019-04-10 05:57:00* Test Item Value Reference Range Interpretation Comments Hematocrit (test code = 4544-3) 33.8 38.2-49.6 L [facility] SpringsMean Corpuscular Ypuibh8499-98-10 05:57:00* Test Item Value Reference Range Interpretation Comments Mean Corpuscular Volume (test code = 787-2) 86.7 81-99 [facility] SpringsMean Corpuscular Jueutxylbt0202-39-59 05:57:00* Test Item Value Reference Range Interpretation Comments Mean Corpuscular Hemoglobin (test code = 785-6) 28.7 28-32 [facility] SpringsMean Corpuscular Hemoglobin Concent 2018-07-07 05:57:00* Test Item Value Reference Range Interpretation Comments Mean Corpuscular Hemoglobin Concent (test code = 786-4) 33.1 31-35 [facility] SpringsRed Cell Distribution Eoajw3635-40-39 05:57:00* Test Item Value Reference Range Interpretation Comments Red Cell Distribution Width (test code = 17398-5) 13.2 11.7 -14.4 [facility] [facility] SpringsPlatelet Duege2816-30-63 05:57:00* Test Item Value Reference Range Interpretation Comments Platelet Count (test code = 777-3) 182 140-360 [facility] SpringsNeutrophils (%) (Auto)2018-07-07 05:57:00 * Test Item Value Reference Range Interpretation Comments Neutrophils (%) (Auto) (test code = 73719-3) 54.0 38.7-80.0 [facility] SpringsLymphocytes (%) (Auto)2018-07-07 05:57:00 * Test Item Value Reference Range Interpretation Comments Lymphocytes (%) (Auto) (test code = 736-9) 20.6 18.0-39.1 [facility] SpringsMonocytes (%) (Auto)2018-07-07 05:57:00* Test Item Value Reference Range Interpretation Comments Monocytes (%) (Auto) (test code = 5905-5) 19.5 4.4-11.3 H [facility] SpringsEosinophils (%) (Auto)2018-07-07 05:57:00 * Test Item Value Reference Range Interpretation Comments Eosinophils (%) (Auto) (test code = 713-8) 5.3 0.0-6.0 [facility]Basophils (%) (Auto)2018-07-07 05:57:00* Test Item Value Reference Range Interpretation Comments Basophils (%) (Auto) (test code = 706-2) 0.5 0.0-1.0 [facility] SpringsIM GRANULOCYTES %2018-07-07 05:57:00* Test Item Value Reference Range Interpretation Comments IM GRANULOCYTES % (test code = IM GRANULOCYTES %) 0.1 0.0- 1.0 [facility] SpringsNeutrophils # (Auto)2018-07-07 05:57:00* Test Item Value Reference Range Interpretation Comments Neutrophils # (Auto) (test code = 751-8) 4.2 2.1-6.9 [facility] SpringsLymphocytes # (Auto)2018-07-07 05:57:00* Test Item Value Reference Range Interpretation Comments Lymphocytes # (Auto) (test code = 36442-7) 1.6 1.0-3.2 [facility] SpringsMonocytes # (Auto)2018-07-07 05:57:00* Test Item Value Reference Range Interpretation Comments Monocytes # (Auto) (test code = 742-7) 1.5 0.2-0.8 H [facility] SpringsEosinophils # (Auto)2018-07-07 05:57:00* Test Item Value Reference Range Interpretation Comments Eosinophils # (Auto) (test code = 711-2) 0.4 0.0-0.4 [facility] SpringsBasophils # (Auto)2018-07-07 05:57:00* Test Item Value Reference Range Interpretation Comments Basophils # (Auto) (test code = 704-7) 0.0 0.0-0.1 [facility] SpringsAbsolute Immature Granulocyte (auto 2018-07-07 05:57:00* Test Item Value Reference Range Interpretation Comments Absolute Immature Granulocyte (auto (zeenat t code = Absolute Immature Granulocyte (auto) 0.01 0-0.1 [facility] SpringsWhite Blood Sgxqt2712-49-56 05:57:00* Test Item Value Reference Range Interpretation Comments White Blood Count (test code = 6690-2) 7.71 4.8-10.8 [facility] SpringsRed Blood Sxvox3347-19-28 05:57:00* Test Item Value Reference Range Interpretation Comments Red Blood Count (test code = 789-8) 3.90 4.3-5.7 L [facility] SpringsHemoglobin2019-04-10 05:57:00* Test Item Value Reference Range Interpretation Comments Hemoglobin (test code = 71418-8) 11.2 14.0-18.0 L [facility] SpringsHematocrit2019-04-10 05:57:00* Test Item Value Reference Range Interpretation Comments Hematocrit (test code = 4544-3) 33.8 38.2-49.6 L [facility] SpringsMean Corpuscular Nybogi9975-72-39 05:57:00* Test Item Value Reference Range Interpretation Comments Mean Corpuscular Volume (test code = 787-2) 86.7 81-99 [facility] SpringsMean Corpuscular Lhepdgowvx3689-77-32 05:57:00* Test Item Value Reference Range Interpretation Comments Mean Corpuscular Hemoglobin (test code = 785-6) 28.7 28-32 [facility] Hem[facility] Concent 2018-07-07 05:57:00* Test Item Value Reference Range Interpretation Comments Mean Corpuscular Hemoglobin Concent (test code = 786-4) 33.1 31-35 [facility] SpringsRed Cell Distribution Ebttc5648-69-64 05:57:00* Test Item Value Reference Range Interpretation Comments Red Cell Distribution Width (test code = 44422-0) 13.2 11.7 -14.4 [facility] SpringsPlatelet Urkyh3478-60-06 05:57:00* Test Item Value Reference Range Interpretation Comments Platelet Count (test code = 777-3) 182 140-360 [facility] SpringsNeutrophils (%) (Auto)2018-07-07 05:57:00 * Test Item Value Reference Range Interpretation Comments Neutrophils (%) (Auto) (test code = 15722-5) 54.0 38.7-80.0 [facility] SpringsLymphocytes (%) (Auto)2018-07-07 05:57:00 * Test Item Value Reference Range Interpretation Comments Lymphocytes (%) (Auto) (test code = 736-9) 20.6 18.0-39.1 [facility] SpringsMonocytes (%) (Auto)2018-07-07 05:57:00* Test Item Value Reference Range Interpretation Comments Monocytes (%) (Auto) (test code = 5905-5) 19.5 4.4-11.3 H [facility] SpringsEosinophils (%) (Auto)2018-07-07 05:57:00 * Test Item Value Reference Range Interpretation Comments Eosinophils (%) (Auto) (test code = 713-8) 5.3 0.0-6.0 [facility] SpringsBasophils (%) (Auto)2018-07-07 05:57:00* Test Item Value Reference Range Interpretation Comments Basophils (%) (Auto) (test code = 706-2) 0.5 0.0-1.0 [facility] SpringsIM GRANULOCYTES %2018-07-07 05:57:00* Test Item Value Reference Range Interpretation Comments IM GRANULOCYTES % (test code = IM GRANULOCYTES %) 0.1 0.0- 1.0 [facility] SpringsNeutrophils # (Auto)2018-07-07 05:57:00* Test Item Value Reference Range Interpretation Comments Neutrophils # (Auto) (test code = 751-8) 4.2 2.1-6.9 [facility] SpringsLymphocytes # (Auto)2018-07-07 05:57:00* Test Item Value Reference Range Interpretation Comments Lymphocytes # (Auto) (test code = 18586-6) 1.6 1.0-3.2 [facility] SpringsMonocytes # (Auto)2018-07-07 05:57:00* Test Item Value Reference Range Interpretation Comments Monocytes # (Auto) (test code = 742-7) 1.5 0.2-0.8 H [facility] SpringsEosinophils # (Auto)2018-07-07 05:57:00* Test Item Value Reference Range Interpretation Comments Eosinophils # (Auto) (test code = 711-2) 0.4 0.0-0.4 [facility] SpringsBasophils # (Auto)2018-07-07 05:57:00* Test Item Value Reference Range Interpretation Comments Basophils # (Auto) (test code = 704-7) 0.0 0.0-0.1 [facility] SpringsAbsolute Immature Granulocyte (auto 2018-07-07 05:57:00* Test Item Value Reference Range Interpretation Comments Absolute Immature Granulocyte (auto (zeenat t code = Absolute Immature Granulocyte (auto) 0.01 0-0.1 [facility] SpringsAmylase Qwfjm3664-91-45 04:08:00* Test Item Value Reference Range Interpretation Comments Amylase Level (test code = 1798-8) 48 25-125 [facility] SpringsLipase2019-04-05 04:08:00* Test Item Value Reference Range Interpretation Comments Lipase (test code = 3040-3) < 4 8-78 L [facility] SpringsAmylase Gzbsm2072-95-26 04:08:00* Test Item Value Reference Range Interpretation Comments Amylase Level (test code = 1798-8) 48 25-125 [facility] SpringsAmylase Jhucz4773-44-13 04:08:00* Test Item Value Reference Range Interpretation Comments Amylase Level (test code = 1798-8) 48 25-125 [facility] SpringsAmylase Ylbuq9185-60-22 04:08:00* Test Item Value Reference Range Interpretation Comments Amylase Level (test code = 1798-8) 48 25-125 [facility] SpringsAmylase Htmvs8747-32-73 04:08:00* Test Item Value Reference Range Interpretation Comments Amylase Level (test code = 1798-8) 48 25-125 [facility] SpringsAmylase Pjjsz8838-46-17 04:08:00* Test Item Value Reference Range Interpretation Comments Amylase Level (test code = 1798-8) 48 25-125 [facility] SpringsUrine MWK6828-91-22 01:56:00* Test Item Value Reference Range Interpretation Comments Urine WBC (test code = 5821-4) 0-5 0-5 [facility] SpringsUrine DTF5324-34-50 01:56:00* Test Item Value Reference Range Interpretation Comments Urine RBC (test code = 45169-0) 0-5 0-5 [facility] SpringsUrine Idxcpmmj3079-33-31 01:56:00* Test Item Value Reference Range Interpretation Comments Urine Bacteria (test code = 16204-9) FEW NONE [facility] SpringsUrine Epithelial Hzuvy3516-51-13 01:56:00 * Test Item Value Reference Range Interpretation Comments Urine Epithelial Cells (test code = 67519-9) FEW NONE [facility] SpringsUrine Ayxfi3006-67-12 01:56:00* Test Item Value Reference Range Interpretation Comments Urine Mucus (test code = 8247-9) FEW RARE H [facility] STW4284-42-91 01:56:00* Test Item Value Reference Range Interpretation Comments Urine WBC (test code = 5821-4) 0-5 0-5 [facility] CRZ4783-94-47 01:56:00* Test Item Value Reference Range Interpretation Comments Urine RBC (test code = 03420-8) 0-5 0-5 [facility] Eajncoaf1092-18-54 01:56:00* Test Item Value Reference Range Interpretation Comments Urine Bacteria (test code = 66015-3) FEW [facility] Epithelial Ynfxv7720-47-61 01:56:00 * Test Item Value Reference Range Interpretation Comments Urine Epithelial Cells (test code = 66887-9) FEW [facility] Nwuus9465-71-19 01:56:00* Test Item Value Reference Range Interpretation Comments Urine Mucus (test code = 8247-9) FEW RARE H [facility] BEJ0377-39-45 01:56:00* Test Item Value Reference Range Interpretation Comments Urine WBC (test code = 5821-4) 0-5 0-5 [facility] MMX0410-34-66 01:56:00* Test Item Value Reference Range Interpretation Comments Urine RBC (test code = 82281-0) 0-5 0-5 [facility] Ytisnvov5198-46-73 01:56:00* Test Item Value Reference Range Interpretation Comments Urine Bacteria (test code = 06749-9) FEW [facility] Epithelial Wzaub9985-96-18 01:56:00 * Test Item Value Reference Range Interpretation Comments Urine Epithelial Cells (test code = 13986-3) FEW [facility] Qibgl5923-18-15 01:56:00* Test Item Value Reference Range Interpretation Comments Urine Mucus (test code = 8247-9) FEW RARE H [facility] Bvrkm6839-81-43 01:56:00* Test Item Value Reference Range Interpretation Comments Urine Mucus (test code = 8247-9) FEW RARE H [facility] Ldqno3183-65-10 01:56:00* Test Item Value Reference Range Interpretation Comments Urine Mucus (test code = 8247-9) FEW RARE H [facility] Pzvan1357-22-57 01:56:00* Test Item Value Reference Range Interpretation Comments Urine Mucus (test code = 8247-9) FEW RARE H [facility] SpringsU[facility] Cxhbc0663-09-20 01:47:00* Test Item Value Reference Range Interpretation Comments Urine Color (test code = 5778-6) YELLOW YELLOW [facility] SpringsUrine Hvtsglm9279-80-27 01:47:00* Test Item Value Reference Range Interpretation Comments Urine Clarity (test code = 20740-1) CLEAR CLEAR [facility] Specific Lxbivbt1869-66-35 01:47:00 * Test Item Value Reference Range Interpretation Comments Urine Specific [place] (test code = 5811-5) 1.020 1.010-1.02 5 [facility] SpringsUrine kR0231-84-37 01:47:00* Test Item Value Reference Range Interpretation Comments Urine pH (test code = 39519-0) 8 5-7 H [facility] Leukocyte Fkurtqkl0706-89-24 01:47:00* Test Item Value Reference Range Interpretation Comments Urine Leukocyte Esterase (test code = 5799-2) NEGATIVE NEGATIVE [facility] Xunyuei5493-12-59 01:47:00* Test Item Value Reference Range Interpretation Comments Urine Nitrite (test code = 68334-8) NEGATIVE NEGATIVE [facility] Fkuhlhb7030-65-38 01:47:00* Test Item Value Reference Range Interpretation Comments Urine Protein (test code = 5804-0) 1+ NEGATIVE H [facility]Urine Glucose (UA)2018-07-02 01:47:00* Test Item Value Reference Range Interpretation Comments Urine Glucose (UA) (test code = 2349-9) NEGATIVE NEGATIVE [facility] Mdcuigo3408-55-46 01:47:00* Test Item Value Reference Range Interpretation Comments Urine Ketones (test code = 88885-5) 2+ NEGATIVE H [facility] Chselshmmvly3864-14-68 01:47:00* Test Item Value Reference Range Interpretation Comments Urine Urobilinogen (test code = 63332-4) 0.2 0.2-1 [facility] Diclxlvdz8814-25-12 01:47:00* Test Item Value Reference Range Interpretation Comments Urine Bilirubin (test code = 1978-6) 1+ NEGATIVE H Confirmatory test currently unavailable. False positive results may occur.[facility] Debzq0218-49-35 01:47:00* Test Item Value Reference Range Interpretation Comments Urine Blood (test code = 81160-5) NEGATIVE NEGATIVE [facility] Ivyem0719-14-73 01:47:00* Test Item Value Reference Range Interpretation Comments Urine Color (test code = 5778-6) YELLOW YELLOW [facility] Sajoxmh6819-04-80 01:47:00* Test Item Value Reference Range Interpretation Comments Urine Clarity (test code = 85627-6) CLEAR CLEAR [facility] Specific Edcawcu5200-09-73 01:47:00 * Test Item Value Reference Range Interpretation Comments Urine Specific [place] (test code = 5811-5) 1.020 1.010-1.02 5 [facility] lN9548-38-13 01:47:00* Test Item Value Reference Range Interpretation Comments Urine pH (test code = 27869-4) 8 5-7 H [facility] Leukocyte Fceczhyo9968-66-93 01:47:00* Test Item Value Reference Range Interpretation Comments Urine Leukocyte Esterase (test code = 5799-2) NEGATIVE NEGATIVE [facility] Vqniwrq8777-48-30 01:47:00* Test Item Value Reference Range Interpretation Comments Urine Nitrite (test code = 75630-2) NEGATIVE NEGATIVE [facility] Xbfkddd4502-39-28 01:47:00* Test Item Value Reference Range Interpretation Comments Urine Protein (test code = 5804-0) 1+ NEGATIVE H [facility] Glucose (UA)2018-07-02 01:47:00* Test Item Value Reference Range Interpretation Comments Urine Glucose (UA) (test code = 2349-9) NEGATIVE NEGATIVE [facility] Lqnboby0256-56-26 01:47:00* Test Item Value Reference Range Interpretation Comments Urine Ketones (test code = 31088-2) 2+ NEGATIVE H [facility] Wgvypmmwvjzd9409-95-72 01:47:00* Test Item Value Reference Range Interpretation Comments Urine Urobilinogen (test code = 29744-2) 0.2 0.2-1 [facility] Ydhfejyaj7571-54-23 01:47:00* Test Item Value Reference Range Interpretation Comments Urine Bilirubin (test code = 1978-6) 1+ NEGATIVE H Confirmatory test currently unavailable. False positive results may occur.[facility] Eklkn1174-10-14 01:47:00* Test Item Value Reference Range Interpretation Comments Urine Blood (test code = 56108-6) NEGATIVE NEGATIVE [facility] Xcyvk6846-38-76 01:47:00* Test Item Value Reference Range Interpretation Comments Urine Color (test code = 5778-6) YELLOW YELLOW [facility] Pullioy4803-92-54 01:47:00* Test Item Value Reference Range Interpretation Comments Urine Clarity (test code = 22714-2) CLEAR CLEAR [facility] Specific Nsyltfw5704-62-04 01:47:00 * Test Item Value Reference Range Interpretation Comments Urine Specific [place] (test code = 5811-5) 1.020 1.010-1.02 5 [facility] lB9377-70-81 01:47:00* Test Item Value Reference Range Interpretation Comments Urine pH (test code = 24953-0) 8 5-7 H [facility] Leukocyte Ratcpmur9213-61-27 01:47:00* Test Item Value Reference Range Interpretation Comments Urine Leukocyte Esterase (test code = 5799-2) NEGATIVE NEGATIVE [facility] Cpjmysl6948-54-48 01:47:00* Test Item Value Reference Range Interpretation Comments Urine Nitrite (test code = 62297-1) NEGATIVE NEGATIVE [facility] Pyapnox9209-95-20 01:47:00* Test Item Value Reference Range Interpretation Comments Urine Protein (test code = 5804-0) 1+ NEGATIVE H [facility] Glucose (UA)2018-07-02 01:47:00* Test Item Value Reference Range Interpretation Comments Urine Glucose (UA) (test code = 2349-9) NEGATIVE NEGATIVE [facility] Qwkndzn4350-87-43 01:47:00* Test Item Value Reference Range Interpretation Comments Urine Ketones (test code = 40009-0) 2+ NEGATIVE H [facility] Pwjyqjkgkwzu6717-28-18 01:47:00* Test Item Value Reference Range Interpretation Comments Urine Urobilinogen (test code = 33597-9) 0.2 0.2-1 [facility] Kaiyfbkul2135-40-21 01:47:00* Test Item Value Reference Range Interpretation Comments Urine Bilirubin (test code = 1978-6) 1+ NEGATIVE H Confirmatory test currently unavailable. False positive results may occur.[facility] Psvuo1355-56-69 01:47:00* Test Item Value Reference Range Interpretation Comments Urine Blood (test code = 69535-6) NEGATIVE NEGATIVE [facility]US ABDOMEN RCKGBQFO5592-54-18 10:20:00 [facility] [address] [place] [address] Patient Name: BREE LINDSAY MR #: [id number] : [id number] Age/Sex: 42/M Req #: [id number] Adm Physician: Ordered by: TAVIA GARCIA MD Report #: [id number] Location: Room/Bed: Procedure: [id number] U S/US ABDOMEN COMPLETE Exam Date: Exam [...] 102 3 COPY TO: TAVIA GARCIA MD ESYNYS4630-14-34 05:55:00* Test Item Value Reference Range Interpretation Comments GLUBED (test code = GLUBED) 195 mg/dL 74-106 H Performed by certified blanker operator at [facility] OTAPSI9355-84-32 17:33:00* Test Item Value Reference Range Interpretation Comments GLUBED (test code = GLUBED) 151 mg/dL 74-106 H Performed by certified blanker operator at [facility] BASIC METABOLIC JEGIE4123-58-26 15:46:00* Test Item Value Reference Range Interpretation [...] code = CA) 7.7 mg/dL 8.5-10.1 L ITKERE3605-76-03 12:16:00* Test Item Value Reference Range Interpretation Comments GLUBED (test code = GLUBED) 136 mg/dL 74-106 H Performed by certified blanker operator at [facility] HRCUOP2540-33-49 07:53:00* Test Item Value Reference Range Interpretation Comments GLUBED (test code = GLUBED) 129 mg/dL 74-106 H Performed by certified blanker operator at [facility] COMPREHENSIVE METABOLIC ZOECC0946-11-59 06:41:00* Test Item Value Reference Range Interpretation Comments SODIUM (test code = NA) 139 mmol/L 136-145 N POTASSIUM (test code = K) 2.7 mmol/L 3.5-5.1 [facility] sults called to [id number] by [email or web address] 05/16/18 0636Critical results verified and [...] due to change in reagent. CBC W/AUTO [id number] 05:31:00* Test Item Value Reference Range Interpretation [...] code = NRBC#) 0.00 K/mm3 0.0-0.1 N [id number] 20:43:00* Test Item Value Reference Range Interpretation Comments GLUBED (test code = GLUBED) 122 mg/dL 74-106 H Performed by certified blanker operator at [facility] WBDJAW1079-06-69 17:15:00* Test Item Value Reference Range Interpretation Comments GLUBED (test code = GLUBED) 145 mg/dL 74-106 H Performed by certified blanker operator at [facility] FLTBZP4351-17-08 11:46:00* Test Item Value Reference Range Interpretation Comments GLUBED (test code = GLUBED) 228 mg/dL 74-106 H Performed by certified blanker operator at [facility] QNOOWF4162-35-69 07:49:00* Test Item Value Reference Range Interpretation Comments GLUBED (test code = GLUBED) 123 mg/dL 74-106 H Performed by certified blanker operator at [facility] COMPREHENSIVE METABOLIC [id number] 07:19:00* Test Item Value Reference Range Interpretation Comments SODIUM (test code = NA) 140 mmol/L 136-145 N POTASSIUM (test code = K) 2.9 mmol/L 3.5-5.1 L Re sults called to [id number] by [email or web address] 05/15/18 0716Critical results verified and read back [...] due to change in reagent. CBC W/AUTO [id number] 06:20:00* Test Item Value Reference Range Interpretation [...] code = NRBC#) 0.00 K/mm3 0.0-0.1 N [id number] 21:14:00* Test Item Value Reference Range Interpretation Comments GLUBED (test code = GLUBED) 152 mg/dL 74-106 H Performed by certified blanker operator at [facility] [id number] 17:16:00* Test Item Value Reference Range Interpretation Comments GLUBED (test code = GLUBED) 140 mg/dL 74-106 H Performed by certified blanker operator at [facility] HAGXZX6506-44-23 11:55:00* Test Item Value Reference Range Interpretation Comments GLUBED (test code = GLUBED) 236 mg/dL 74-106 H Performed by certified blanker operator at [facility] COMPREHENSIVE METABOLIC FBBVQ9306-20-07 08:50:00* Test Item Value Reference Range Interpretation [...] due to change in reagent. COMPREHENSIVE METABOLIC [id number] 08:38:00* Test Item Value Reference Range Interpretation [...] code = ALKP) IUnit/L 45-117 CBC W/AUTO [id number] 08:00:00* Test Item Value Reference Range Interpretation [...] DIFF REQUIRED (test code = MDIFF) NO [id number] 07:51:00* Test Item Value Reference Range Interpretation Comments GLUBED (test code = GLUBED) 210 mg/dL 74-106 H Performed by certified blanker operator at [facility] KFPIOT9525-95-28 20:06:00* Test Item Value Reference Range Interpretation Comments GLUBED (test code = GLUBED) 278 mg/dL 74-106 H Performed by certified blanker operator at [facility] BQFYJR3215-56-86 16:53:00* Test Item Value Reference Range Interpretation Comments GLUBED (test code = GLUBED) 236 mg/dL 74-106 H Performed by certified blanker operator at [facility] [id number] 11:31:00* Test Item Value Reference Range Interpretation Comments GLUBED (test code = GLUBED) 269 mg/dL 74-106 H Performed by certified blanker operator at [facility] [id number] 10:39:00* Test Item Value Reference Range Interpretation Comments GLUBED (test code = GLUBED) 298 mg/dL 74-106 H Performed by certified blanker operator at [facility] COMPREHENSIVE METABOLIC [id number] 06:29:00* Test Item Value Reference Range Interpretation [...] due to change in reagent. COMPREHENSIVE METABOLIC [id number] 06:10:00* Test Item Value Reference Range Interpretation [...] code = ALKP) IUnit/L 45-117 CBC W/AUTO [id number] 05:48:00* Test Item Value Reference Range Interpretation [...] DIFF REQUIRED (test code = MDIFF) NO [id number] 20:52:00* Test Item Value Reference Range Interpretation Comments GLUBED (test code = GLUBED) 238 mg/dL 74-106 H Performed by certified blanker operator at [facility] [id number] 15:54:00* Test Item Value Reference Range Interpretation Comments GLUBED (test code = GLUBED) 199 mg/dL 74-106 H Performed by certified blanker operator at [facility] [id number] 11:51:00* Test Item Value Reference Range Interpretation Comments GLUBED (test code = GLUBED) 265 mg/dL 74-106 H Performed by certified blanker operator at [facility] [id number] 08:20:00* Test Item Value Reference Range Interpretation Comments GLYCOSYLATED HEMOGLOBIN (HA1C) (test code = GLYHGB) 10.6 % HbA1 4. 8-6.0 H ESTIMATED AVERAGE GLUCOSE (test code = EAG) 258 MG/DL COMPREHENSIVE METABOLIC [id number] 08:11:00* Test Item Value Reference Range Interpretation [...] result is a direct measurement.========= THYROID STIMULATING [id number] 08:11:00* Test Item Value Reference Range Interpretation Comments THYROID STIMULATING HORMONE (test code = TSH) 1.020 uIU/mL 0.36-3.7 4 N TSH REFERENCE RANGES: EUTHYROID: 0.35 - 4.3 mIU/mL HYPO : > 5.5 mIU/mL HYPER : < 0.35 mIU/mL COMPREHENSIVE METABOLIC [id number] 07:53:00* Test Item Value Reference Range Interpretation [...] code = LDL) mg/dL 100-129 THYROID STIMULATING [id number] 07:53:00* Test Item Value Reference Range Interpretation Comments THYROID STIMULATING HORMONE (test code = TSH) uIU/mL 0.36-3.7 4 CBC W/AUTO [id number] 07:51:00* Test Item Value Reference Range Interpretation [...] DIFF REQUIRED (test code = MDIFF) NO [id number] 07:10:00* Test Item Value Reference Range Interpretation Comments GLUBED (test code = GLUBED) 350 mg/dL 74-106 H Performed by certified blanker operator at [facility] DRUGS OF ABUSE SCREEN [id number] 06:10:00* Test Item Value Reference Range Interpretation [...] code = METHAURN) NEGATIVE <300 ng/mL URINALYSIS [id number] 05:29:00* Test Item Value Reference Range Interpretation [...] Urine Source? Clean CatchDRUGS OF ABUSE SCREEN [id number] 05:12:00* Test Item Value Reference Range Interpretation [...] METHADONE (test code = METHAURN) <300 ng/mL [id number] 20:26:00* Test Item Value Reference Range Interpretation Comments GLUBED (test code = GLUBED) 285 mg/dL 74-106 H Performed by certified blanker operator at [facility] [id number] 13:32:00* Test Item Value Reference Range Interpretation Comments GLUBED (test code = GLUBED) 159 mg/dL 74-106 H Performed by certified blanker operator at [facility] BASIC METABOLIC [id number] 09:38:00* Test Item Value Reference Range Interpretation [...] CA) 8.9 mg/dL 8.5-10.1 N HEPATIC FUNCTION [id number] 09:38:00* Test Item Value Reference Range Interpretation [...] reference range due to change in reagent. [id number] 09:38:00* Test Item Value Reference Range Interpretation Comments LIPASE (test code = LIP) 20 U/L 73.0-393.0 L BASIC METABOLIC [id number] 09:30:00* Test Item Value Reference Range Interpretation [...] code = CA) mg/dL 8.5-10.1 HEPATIC FUNCTION [id number] 09:30:00* Test Item Value Reference Range Interpretation [...] TOTAL (test code = ALKP) IUnit/L 45-117 [id number] 09:30:00* Test Item Value Reference Range Interpretation Comments LIPASE (test code = LIP) U/L 73.0-393.0 CBC W/O [id number] 09:13:00* Test Item Value Reference Range Interpretation [...] code = MPV) 10.6 fL 6.7-11.0 N [id number] 07:28:00* Test Item Value Reference Range Interpretation Comments GLUBED (test code = GLUBED) 173 mg/dL 74-106 H Performed by certified blanker operator at [facility] [id number] 20:56:00* Test Item Value Reference Range Interpretation Comments GLUBED (test code = GLUBED) 181 mg/dL 74-106 H Performed by certified blanker operator at [facility] [id number] 16:11:00* Test Item Value Reference Range Interpretation Comments GLUBED (test code = GLUBED) 245 mg/dL 74-106 H Performed by certified blanker operator at [facility] [id number] 11:55:00* Test Item Value Reference Range Interpretation Comments GLUBED (test code = GLUBED) 309 mg/dL 74-106 H Performed by certified blanker operator at [facility] [id number] 08:03:00* Test Item Value Reference Range Interpretation Comments GLUBED (test code = GLUBED) 241 mg/dL 74-106 H Performed by certified blanker operator at [facility] [id number] 00:08:00* Test Item Value Reference Range Interpretation Comments GLUBED (test code = GLUBED) 175 mg/dL 74-106 H Performed by certified blanker operator at [facility] [id number] 20:00:00* Test Item Value Reference Range Interpretation Comments GLUBED (test code = GLUBED) 167 mg/dL 74-106 H Performed by certified blanker operator at [facility] [id number] 16:45:00* Test Item Value Reference Range Interpretation Comments GLUBED (test code = GLUBED) 208 mg/dL 74-106 H Performed by certified blanker operator at [facility] [id number] 16:01:00* Test Item Value Reference Range Interpretation Comments GLUBED (test code = GLUBED) 47 mg/dL 74-106 LL [facility]~ [id number] 11:44:00* Test Item Value Reference Range Interpretation Comments GLUBED (test code = GLUBED) 317 mg/dL 74-106 H Performed by certified blanker operator at [facility] [id number] 08:20:00* Test Item Value Reference Range Interpretation Comments GLUBED (test code = GLUBED) 271 mg/dL 74-106 H Performed by certified blanker operator at [facility] CBC W/AUTO [id number] 05:45:00* Test Item Value Reference Range Interpretation [...] = MDIFF) NO, ONLY SCAN NEEDED DIFFERENTIAL [id number] 05:45:00* Test Item Value Reference Range Interpretation Comments STAIN ACCEPTABILITY (test code = STN ACCEPTABLE) STAIN ACCEPTABLE POLYCHROMASIA (test code = POLC) 1+ HYPOCHROMIA (test code = HYPO) 1+ PLATELET ESTIMATE (test code = PLTEST) ADEQUATE PLATELET MORPHOLOGY (test code = PLTMORPH) NORMAL CBC W/AUTO [id number] 05:08:00* Test Item Value Reference Range Interpretation [...] = MDIFF) NO, ONLY SCAN NEEDED DIFFERENTIAL [id number] 05:08:00* Test Item Value Reference Range Interpretation Comments STAIN ACCEPTABILITY (test code = STN ACCEPTABLE) CABOT RINGS (test code = CAB) MORPHOLOGY COMMENT (test code = MOC) PLATELET ESTIMATE (test code = PLTEST) PLATELET MORPHOLOGY (test code = PLTMORPH) CBC W/AUTO [id number] 05:08:00* Test Item Value Reference Range Interpretation [...] = MDIFF) NO, ONLY SCAN NEEDED DIFFERENTIAL [id number] 05:08:00* Test Item Value Reference Range Interpretation Comments STAIN ACCEPTABILITY (test code = STN ACCEPTABLE) MORPHOLOGY COMMENT (test code = MOC) PLATELET ESTIMATE (test code = PLTEST) PLATELET MORPHOLOGY (test code = PLTMORPH) CBC W/AUTO [id number] 05:08:00* Test Item Value Reference Range Interpretation [...] = MDIFF) NO, ONLY SCAN NEEDED DIFFERENTIAL [id number] 05:08:00* Test Item Value Reference Range Interpretation Comments STAIN ACCEPTABILITY (test code = STN ACCEPTABLE) MORPHOLOGY COMMENT (test code = MOC) PLATELET ESTIMATE (test code = PLTEST) PLATELET MORPHOLOGY (test code = PLTMORPH) CBC W/AUTO [id number] 05:08:00* Test Item Value Reference Range Interpretation [...] = MDIFF) NO, ONLY SCAN NEEDED DIFFERENTIAL [id number] 05:08:00* Test Item Value Reference Range Interpretation Comments STAIN ACCEPTABILITY (test code = STN ACCEPTABLE) CABOT RINGS (test code = CAB) MORPHOLOGY COMMENT (test code = MOC) PLATELET ESTIMATE (test code = PLTEST) PLATELET MORPHOLOGY (test code = PLTMORPH) COMPREHENSIVE METABOLIC [id number] 05:04:00* Test Item Value Reference Range Interpretation [...] due to change in reagent. COMPREHENSIVE METABOLIC [id number] 04:54:00* Test Item Value Reference Range Interpretation [...] TOTAL (test code = ALKP) IUnit/L 45-117 [id number] 21:00:00* Test Item Value Reference Range Interpretation Comments GLUBED (test code = GLUBED) 334 mg/dL 74-106 H Performed by certified blanker operator at [facility] [id number] 16:10:00* Test Item Value Reference Range Interpretation Comments GLUBED (test code = GLUBED) 102 mg/dL 74-106 N Performed by certified blanker operator at [facility] [id number] 15:59:00* Test Item Value Reference Range Interpretation Comments GLUBED (test code = GLUBED) 339 mg/dL 74-106 H Performed by certified blanker operator at [facility] URINALYSIS [id number] 09:47:00* Test Item Value Reference Range Interpretation [...] 0-2 #/HPF 0-5 Urine Source? Clean CatchURINALYSIS [id number] 09:46:00* Test Item Value Reference Range Interpretation [...] HPF 0-5 Urine Source? Clean CatchBASIC METABOLIC [id number] 04:02:00* Test Item Value Reference Range Interpretation [...] CA) 9.3 mg/dL 8.5-10.1 N HEPATIC FUNCTION [id number] 04:02:00* Test Item Value Reference Range Interpretation [...] reference range due to change in reagent. [id number] 04:02:00* Test Item Value Reference Range Interpretation Comments LIPASE (test code = LIP) 22 U/L 73.0-393.0 L BASIC METABOLIC [id number] 03:53:00* Test Item Value Reference Range Interpretation [...] code = CA) mg/dL 8.5-10.1 HEPATIC FUNCTION [id number] 03:53:00* Test Item Value Reference Range Interpretation [...] TOTAL (test code = ALKP) IUnit/L 45-117 [id number] 03:53:00* Test Item Value Reference Range Interpretation Comments LIPASE (test code = LIP) U/L 73.0-393.0 CBC W/O [id number] 03:46:00* Test Item Value Reference Range Interpretation [...] code = MPV) 10.9 fL 6.7-11.0 N [id number] 17:23:00 RUN DATE: 12/16/17 [facility] PAGE 1 RUN TIME: 1723 Specimen Inqui ry RUN USER: INTERFACE PATIENT: DAISHABREE ACCT #: V [id number] LOC: [facility] U #: [id number] AGE/SX: 42/M ROOM: [facility] RE12/11/17YUNIEL DR: Olegario Diaz MD : 75 BED: A DIS: 12/13/17 STATUS: DIS IN TLOC: SPEC #: [id number] RECD: 12/14/17114 STATUS: SHAHRAM LUEVANO #: [id number] HUY: 12/11/17- SUBM DR: Kvng Izaguirre MD ENTERED: 12/14/17-1150 SP TYPE: STOMACH OTHR DR: Levi Natarajan i, MD ORDERED: GROSS COPIES TO: Kvng Izaguirre MD [address] [place] [address] Levi Lakhani MD [address] [place] [address] PROCEDURES: GROSS (12/15/17-1304 ) TISSUES: 1. GASTRIC [...] DYSPLASIA NEGATIVE FOR MALIGNANCY MYA/sm D [phone] CONTINUED ON NEXT PAGE RUN DATE: 12/16/17 [facility] PAGE 2 RUN TIME: 172 3 Specimen Inquiry RUN USER: INTER FACE SPEC #: [id number] PATIENT: BREE LINDSAY #[id number] (Con tinued) MACROSCOPIC The first specimen is [...] measuring 0.2 cm each. GROSS PERFORMED AT [facility] [address] [place] [phone] MICROSCOPIC MICROSCOPIC PERFORMED AT [facility] All of the stains, including any controls performed, hao swift. [facility] [address] [place] [address] [phone])[phone] PERFORMING SITE Diagnosis performed at: [facility], [address] [place] [address] Signed SIGNATURE ON FILE Leigh Ann Fuller 12/16/17 1723 END OF REPORT
[2019-11-17] MEDS ORDERED: SODIUM CHLORIDE 0.9% 1000ML 1,000 ML IV SCH (22:00)
[2019-11-17] MEDS ORDERED: PROMETHAZINE 25MG/ NS 50ML (IV) IV ONE (22:00)
[2019-11-17] MEDS ORDERED: PROMETHAZINE HCL (IM) 25 MG/ML VIAL IM ONE (22:33)
[2019-11-18] MEDS ORDERED: PROMETHAZINE HC25 M1 PO (01:18)
== END 2019-11-18 01:35 | disposition home or self-care (01) ==
LOC: FSED 21:49
DX: E11.43 Type 2 diabetes mellitus with diabetic autonomic (poly)neuropathy (principal); E11.65 Type 2 diabetes mellitus with hyperglycemia; R11.2 Nausea with vomiting, unspecified
CPT/HCPCS: 99283; J2550; 80053; 81003; 85025; J7030

== ENCOUNTER 2019-12-06 19:00 | Emergency (ER) | payer MEDICARE ==
[~2019-12-06] VITALS: Ht 185.4 cm; Wt 83.0 kg
[2019-12-06] MEDS ORDERED: MORPHINE SULFATE 2 MG/ML SYR 1ML IV STA (19:19)
[2019-12-06] MEDS ORDERED: ONDANSETRON HCL INJ 2MG/ML 2ML 2 MG/ML VIAL IV STA (19:19)
[2019-12-06] MEDS ORDERED: PROMETHAZINE 12.5MG/ NACL 0.9% 12.5 MG/50 ML BAG IV NR (19:30)
[2019-12-06] MEDS ORDERED: MORPHINE SULFATE INJ 4 MG/ML INJ 1ML ONE (19:43)
[2019-12-06] MEDS ORDERED: SODIUM CHLORIDE 0.9% 1000ML 1,000 ML ONE (19:43)
[2019-12-06] MEDS ORDERED: PROMETHAZINE HCL (IM) 25 MG/ML VIAL IM ONE (19:43)
[2019-12-06] MEDS ORDERED: ONDANSETRON HCL INJ 2MG/ML 2ML 2 MG/ML VIAL ONE (19:43)
--- NOTE | 2019-12-06 20:10 | Emergency Department Note ---
History of Present Illnes History of Present Illness Chief Complaint: General Medicine Complaints History of Present Illness This is a 44 year old male hief Complaint Comment PT HERE FOR [place] AND VOMITTING NON-STOP SINCE 730AM, THIS IS PATIENTS 5TH VISIT IN 6 WEEKS FOR EXACT SAME THING, PT HAS GASTROPARESIS . Onset (how long ago): day(s) (2) Location: epigastric Quality: epigastric Radiation: Denies non-radiation, Denies back, Denies neck, Denies extremity, D enies abdomen, Denies periumbilical, Denies flank, Denies proximal, Denies distal, Denies other Severity: moderate Onset quality: gradual Duration (how long): day(s) (2) Timing of current episode: constant Progression: worsening Chronicity: new Context: Denies recent illness, Denies recent surgery, Denies recent immobilization, Denies recent travel, Denies trauma/injury, Denies new medications, Denies hx of DVT/PE, Denies non-compliance w/ medications, Denies other Relieving factors: none Exacerbating factors: none Associated symptoms: Reports nausea/vomiting; Denies denies other symptoms, Denies confusion, Denies chest pain, Denies cough, Denies diaphoresis, Denies fever/chills, Denies headaches, Denies loss of appetite, Denies malaise, Denies rash, Denies seizure, Denies shortness of breat h, Denies syncope, Denies weakness, Denies other Treatments prior to arrival: none Past Medical/Family History Physician Review I have reviewed the patient's past medical and family history. Any updates have been documented here. Past Medical History Recent Fever: No Clinical Suspicion of Infectio: No New/Unexplained Change in Ment: No Past Medical History: Diabetes Other Medical History: GASTROPORESIS Peripheral Neuropathy Past Surgical History: Cholecysctectomy Other Surgery: L-FOOT Surgery - due to infection, seeing wound care Social History Smoking Cessation: Never Smoker Counseling Performed: No Alcohol Use: None Any Illegal Drug Use: No Physically hurt or threatened: No Other Last Tetanus: UNKNOWN Any Pre-Existing Lines (PICC,: No Review of Systems Review of Systems Constitutional: Reports no symptoms EENTM: Reports no symptoms Cardiovascular: Reports no symptoms Respiratory: Reports no symptoms Gastrointestinal: Reports as per HPI Genitourinary: Reports no symptoms Musculoskeletal: Reports no symptoms Integumentary: Reports no symptoms Neurological: Reports no symptoms Psychological: Reports no symptoms Endocrine: Reports no symptoms Hematological/Lymphatic: Reports no symptoms Physical Exam Related Data Allergies: Coded Allergies: No Known Allergies (Unverified , 07/02/18) Triage Vital Signs Vital Signs Date Time Temp Pulse Resp B/P (MAP) Pulse Ox O2 Delivery O2 Flow Rate FiO2 12/06/19 19:15 97.6 94 18 176/102 96 Room Air Vital signs reviewed: Yes Physical Exam CONSTITUTIONAL Constitutional: Present well-developed, Present well-nourished HENT HENT: Present normocephalic, Present atraumatic, Present oropharynx clear/moist, Present nose normal HENT L/R: Present left ext ear normal, Present right ext ear normal EYES Eyes: Reports PERRL, Reports conjunctivae normal NECK Neck: Present ROM normal PULMONARY Pulmonary: Present effort normal, Present breath sounds normal CARDIOVASCULAR Cardiovascular: Present regular rhythm, Present heart sounds normal, Present capillary refill normal, Present normal rate GASTROINTESTINAL Abdominal: Present soft, Present nontender, Present bowel sounds normal GENITOURINARY Genitourinary: Present exam deferred SKIN Skin: Present warm, Present dry MUSCULOSKELETAL Musculoskeletal: Present ROM normal NEUROLOGICAL Neurological: Present alert, Present oriented x 3, Present no gross motor or sensory deficits PSYCHOLOGICAL Psychological: Present mood/affect normal, Present judgement normal Results Laboratory Lab results reviewed: Yes Assessment & Plan Medical Decision Making MDM gastritis gerd Reassessment Reassessment time: 20:08 Reassessment better sleeping Assessment & Plan Final Impression: (1) Intractable nausea and vomiting (2) Gastroparesis (3) Vomiting (4) Dehydration Depart Disposition: HOME, SELF-CARE Last Vital Signs Date Time Temp Pulse Resp B/P (MAP) Pulse Ox O2 Delivery O2 Flow Rate FiO2 12/06/19 19:15 97.6 94 18 176/102 96 Room Air Home Meds Active Scripts Promethazine Hcl (PROMETHAZINE HCL) 25 Mg Tablet, 25 MG PO Q6H PRN for nausea and vomiting, #20 TAB 0 Refills Prov:YUMIKO LYNNE MD 11/18/19 Promethazine Hcl (PROMETHAZINE HCL) 25 Mg Tablet, 25 MG PO Q6H PRN for nausea and vomiting, #20 TAB 0 Refills Prov:YUMIKO LYNNE MD 11/12/19 Acetaminophen With Codeine (TYLENOL WITH CODEINE #3 TABLET) 1 Each Tablet, 300 MG PO Q12H PRN for ABDOMINAL PAIN, #10 TAB Prov:JAREK LO Sean GUEST RELATIONS COORDINATOR 10/28/19 Promethazine Hcl (PROMETHAZINE HCL) 25 Mg Tablet, 25 MG PO Q6H for vomiting, #20 TAB Prov:FILIBERTO ROSENTHAL MD 09/21/19 Metoclopramide Hcl (REGLAN) 10 Mg Tablet, 1 TAB PO ACHS for 30 Days Before meals Prov:WALLYJAREK DU NP 11/25/18 Pantoprazole Sodium* (PROTONIX) 40 Mg Tablet.dr, 40 MG PO DAILY for 30 Days Prov:JAREK LO Sean GUEST RELATIONS COORDINATOR 11/25/18 Reported Medications Ondansetron Hcl (ONDANSETRON HCL) 4 Mg Tablet, 4 MG SL Q6H PRN for NAUSEA 07/02/18 Insulin Glargine (LANTUS 3ML PEN) 100 Units/1 Ml Inj, 15 UNITS SQ HS 07/02/18 Lisinopril (LISINOPRIL) 5 Mg Tablet, 5 MG PO DAILY 07/02/18 Insulin Aspart (NOVOLOG) 100 Units/1 Ml Inj, 8 UNITS SQ TIDWM 07/02/18 Medications in the ED Morphine Sulfate 2 mg NOW STAT IV ; Start 12/06/19 at 19:19; Stop 12/06/19 at 19:22; Status DC Ondansetron HCl 4 mg NOW STAT IV ; Start 12/06/19 at 19:19; Stop 12/06/19 at 19:22; Status DC Promethazine HCl 25 mg STK-MED ONCE IM ; Start 12/06/19 at 19:43; Stop 12/06/19 at 19:36; Status DC Ondansetron HCl 4 mg STK-MED ONCE .ROUTE ; Start 12/06/19 at 19:43; Stop 12/06/19 at 19:36; Status DC Morphine Sulfate 4 mg STK-MED ONCE .ROUTE ; Start 12/06/19 at 19:43; Stop 12/06/19 at 19:36; Status DC Sodium Chloride 1,000 ml @ ud STK-MED ONCE .ROUTE ; Start 12/06/19 at 19:43; Stop 12/06/19 at 19:36; Status DC FILIBERTO ROSENTHAL MD Dec 06, 2019 20:10
[2019-12-06] MEDS ORDERED: PROMETHAZINE HC25 M1 PO (20:11)
--- OUTSIDE RECORDS SUMMARY | 2019-12-06 21:24 | XMS REPORT | Clinical Summary ---
Author Author DEMARIO [facility] Address Unknown Phone Unavailable Care Team Providers Care Smt Technician Name Role Phone Pcp, No PCP Unavailable [...] (HCC); Cannabinoid hyperemesis syndrome (HCC); Hypokalemia 12/13/2018 [facility] - Encounter 12/14/2018 12/13/2018 Travel after 12/05/2018 Family History Medical History Relation Name Comments [...] METER Routine 12/13/2018 12:25 PM CDT after 12/05/2018 Results * EKG-SCANNED (12/16/2018 9:02 AM CDT) Narrative Performed At This result has an attachment that is n ot available. * POC-Glucose meter (12/14/2018 5:15 PM CDT) Only the most recent of 6 results within the time period is included. POC-Glucose Meter 266 (H)Comment: TESTED AT 70 - 110 mg/dL C HI [facility]SC [address] [facility] [address] Specimen Blood Performing Organization Address City/State/Zipcode Ph one Number [facility] [id number] [place], [place] [facility] * ECG 12 lead (12/14/2018 10:08 AM CDT) Specimen Narrative Performed At Ventricular Rate 78 BPM GE MUSE Atrial Rate 78 BPM P-R Interval 168 ms QRS Duration 80 ms Q-T Interval 350 ms QTC Calculation(Bazett) 399 ms P Franklin 52 degrees R Franklin -14 degrees T Franklin 35 degrees Normal sinus rhythm Normal ECG No previous ECGs available Confirmed by MD MEGGAN, MARCELINO ([id number] ) on 12/14/2018 2:27:24 PM Procedure Note Interface, External Ris In - 12/14/2018 2:27 PM CDT Ventricular Rate 78 BPM Atrial Rate 78 BPM P-R Interval 168 ms QRS Duration 80 ms Q-T Interval 350 ms QTC Calculation(Bazett) 399 ms P Franklin 52 degrees R Franklin -14 degrees T [place] 35 degrees Normal sinus rhythm Normal ECG No previous ECGs available Confirmed by MD MEGGAN, MARCELINO ([id number]) on 12/14/2018 2:27:24 PM Performing Organization Address City/State/Zipcode Ph one Number GE MUSE * CBC with platelet count + automated diff (12/14/2018 4:58 AM CDT) Only the most recent of 2 results within the time period is included. WBC 7.5 3.5 - 10.5 K/L [facility] RBC 3.38 (L) 4.63 - 6.08 M/L [facility] [place] Hemoglobin 9.8 (L) 13.7 - 17.5 GM/DL [facility] [place] Hematocrit 31.1 (L) 40.1 - 51.0 % [facility] MCV 92.0 79.0 - 92.2 fL [facility] MCH 29.0 25.7 - 32.2 pg [facility] MCHC 31.5 (L) 32.3 - 36.5 GM/DL [facility] [place] RDW 14.1 11.6 - 14.4 % [facility] Platelets 208Comment: Discordant PLT 150 - 450 K/CU MM [facility] results compared to previous [facility] results; clinical correlation required. MPV 10.4 9.4 - 12.4 fL [facility] nRBC 0 0 - 0 /100 WBC [facility] % Neutros 66 % [facility] % Lymphs 20 % [facility] % Monos 12 % [facility] % Eos 1 % [facility] % Baso 1 % [facility] # Neutros 4.92 1.78 - 5.38 K/L [facility] [place] # Lymphs 1.46 1.32 - 3.57 K/L [facility] [place] # Monos 0.92 (H) 0.30 - 0.82 K/L [facility] [place] # Eos 0.10 0.04 - 0.54 K/L [facility] [place] # Baso 0.07 0.01 - 0.08 K/L [facility] [place] Immature 0 0 - 1 % Granulocytes-Relative [facility] Specimen Blood Performing Organization Address [facility] one Number [place] [phone] [place] [address] * Phosphorus (12/14/2018 4:58 AM CDT) Phosphorus 2.2 (L) 2.3 - 4.7 mg/dL [facility] Specimen Blood Performing Organization Address City/[facility] one Number [place] [phone] [place] [address] * Magnesium (12/14/2018 4:58 AM CDT) Magnesium 1.6 1.6 - 2.6 mg/dL [facility] Specimen Blood Performing Organization Address City/[facility] one Number [address] [facility] * Basic metabolic panel (12/14/2018 4:58 AM CDT) Only the most recent of 2 results within the time period is included. Sodium 139 136 - 145 meq/L [facility] Potassium 3.2 (L) 3.5 - 5.1 meq/L [facility] Chloride 105 98 - 107 meq/L [facility] CO2 28 22 - 29 meq/L [facility] BUN 11 7 - 21 mg/dL [facility] Creatinine 1.12 0.57 - 1.25 mg/dL [facility] [place] Glucose 112 (H) 70 - 105 mg/dL [facility] Calcium 8.7 8.4 - 10.2 mg/dL [facility] EGFR 87Comment: ESTIMATED GFR IS mL/min/1.73 sq m [facility] NOT ACCURATE CREATININE [facility] CLEARANCE IN PREDICTING GLOMERULAR FILTRATION RATE. ESTIMATED GFR IS NOT APPLICABLE FOR DIALYSIS PATIENTS. Specimen Blood Performing Organization Address [facility] one Elijah [address] [facility] * Hemoglobin A1c (12/13/2018 3:38 PM CDT) Hemoglobin A1C 8.4 (H) 4.3 - 6.1 % [facility] Specimen Blood Performing Organization Address City/[facility] one Number [place] [address] [facility] * Hepatic function panel (12/13/2018 3:38 PM CDT) Protein, Total 6.9 6.0 - 8.3 gm/dL [facility] Albumin 3.9 3.5 - 5.0 g/dL [facility] Total Bilirubin 0.5 0.2 - 1.2 mg/dL [facility] Bilirubin, Direct 0.2 0.1 - 0.5 mg/dL [facility] Alkaline Phosphatase 80 40 - 150 U/L [facility] AST 18 5 - 34 U/L [facility] ALT 15 6 - 55 U/L [facility] Specimen Blood Performing Organization Address [facility] Ph one Number [address] [facility] * Lipid panel (12/13/2018 3:38 PM CDT) Triglycerides 101 mg/dL [facility] Cholesterol 151 mg/dL [facility] HDL 38 mg/dL [facility] LDL Calculated 93 mg/dL [facility] Specimen Blood Narrative Performed At Triglyceride Reference Range: [facility] Low Risk <[facility] [id number] High Risk 200-499 Very High Risk>=500 Cholesterol Reference Range: Low Risk <200 [id number] High Risk>240 HDL Cholesterol Reference Range: Low Risk >=60 High Risk <40 LDL Cholesterol Reference Range: Optimal<100 Near [id number] Very High >=190 Performing Organization Address City/[facility] Ph one Number [address] [facility] after 12/05/2018 Insurance Payer Benefit Subscriber ID Type Phone Address Plan / Group MEDICARE MEDICARE A xxxxxxxxxxx Medicare B [id number] Advance Directives For more information, please contact: [address] [address] Date Inactivated Comments Code Status Date Activated 12/15/2018 12:01 AM Full Code 12/13/2018 10:07 AM This code status was determined by: Patient
--- OUTSIDE RECORDS SUMMARY | 2019-12-06 21:28 | XMS REPORT | Continuity of Care Document ---
Author Author [facility] t Organization [facility] Address [address] [place] [address] Phone Unavailable Care Team Providers Care Belting Cutter Name Role Phone Chao BECKMAN PCP Mary Ann LYNNE ALEISHA Attphys Unavailable ISACC JAVED Attphys Unavailable JEANNIE QUINONES MD Attphys Unavailable EMMA, Keeley MERCER Attphys Unavailable NEIL PEREZ Attphys Unavailable Zaina Forman RN Attphys Lisa Lee MD Sharon Attphys [phone] Rigo Mott MD Attphys [phone] LISA LEE SHARON Attphys Unavailable TAVIA GARCIA Attphys Unavailable ISACC JAVED Admphys Unavailable DAMISAEL, Keeley JIRIES Admphys Unavailable SHERIE LEEALINSID SHARON Admphys Unavailable Payers Payer Name Policy Type Policy Number Effective Date Expiration Date Keeley cagle Medicare A & B [id number] 2016 00:00:00 [facility] Cdc Review [id number] [facility] MEDICAREMEDICARE A BxxxxxxxxxxxMedicare xxxxxxxxxxx [facility] Problems Condition Name Condition [...] [facility] Abdominal pain Problem Active [facility] Vomiting Problem Active [facility] Tachycardia Problem Active [facility] Hyperglycemia Problem Active [facility] Colitis Problem Active [facility] Intractable vomiting with nausea Problem Active [facility] Abnormal kidney function Problem Active [facility] Gastroparesis Problem Active [facility] Hypertensive crisis Problem Active [facility] Cannabis dependence Problem Active [facility] Allergies, Adverse Reactions, Alerts Allergy Name Allergy Type Status Severity Reaction(s) Onset Date Inacti ve Date Treating Clinician Comments Source No Known Allergies DA Active U 2019-02-13 00:00:00 [facility] No Known Allergies DA Active U 2019-02-06 00:00:00 [facility] No Known Allergies DA Active U 2018-05-11 00:00:00 [facility] No Known Allergies DA Active U 2018-02-26 00:00:00 [facility] No Known Allergies DA Active U 2018-01-14 00:00:00 [facility] No Known Allergies DA Active U 2017-12-15 00:00:00 [facility] No Known Allergies DA Active U 2017-10-09 00:00:00 [facility] Family History Family Member Diagnosis Comments Start Date Stop Date Source Maternal uncle Diabetes [facility] Natural mother Diabetes [facility] Social History Social Habit Start Date Stop Date Quantity Comments Source History SDOH Alcohol Std Drinks [facility] History SDOH Alcohol Binge [facility] History SDOH Alcohol Frequency 2018-12-13 00:00:00 2018-12-13 00:00:0 0 1 [facility] Sex Assigned At 1975 00:00:00 1975 00:00:00 Male [facility] Smoking Status Start Date Stop Date Source Never smoker [facility] Medications Ordered Medication Name Filled Medication Name Start Date Stop Da te Current Medication? Ordering Clinician Indication Dosage Frequency Signature (SIG) Comments Components Source Promethazine Hcl Promethazine Hcl 2019-11-18 01:18:00 Yes 25 Every 6 Hours as needed for Nausea And Vomiting [facility] Promethazine Hcl Promethazine Hcl 2019-11-12 00:25:00 Yes 25 Every 6 Hours as needed for Nausea And Vomiting [facility] Acetaminophen With Codeine (Tylenol With Codeine #3 Ta blet) 1 Each TABLET Acetaminophen With Codeine (Tylenol With Codeine #3 Tablet) 1 Each TABLET 2019-10-28 10:59:00 Yes 300 Every 12 Jessenia rs as needed for Abdominal Pain [facility] Promethazine Hcl Promethazine Hcl 2019-09-21 09:25:00 Yes 25 Every 6 Hours for Vomiting [facility] Losartan Potassium Losartan Potassium 2019-08-25 13:46:00 2019-08-30 5 00:00:00 No 50 Daily [facility] Acetaminophen With Codeine (Tylenol With Codeine #3 Ta blet) 1 Each TABLET Acetaminophen With Codeine (Tylenol With Codeine #3 Tablet) 1 Each TABLET 2019-07-10 18:44:00 2019-09-22 00:00:00 No 300 Every 6 Hours as needed for Pain [facility] Promethazine Hcl Promethazine Hcl 2019-07-06 13:42:00 2019-07-10 00:00 :00 No 25 Three Times A Day [facility] promethazine (PHENERGAN) 12.5 MG tablet 00:00:00 2018-12-21 23:59:00 No 12.5mg Take 1 tablet (12.5 mg total) by mouth every 6 (six) hours as needed for Nausea for up to 7 days. [facility] insulin glargine (LANTUS) 100 unit/mL injection 2018-12-13 1 7:58:14 Yes type 2 diabetes mellitus 25U QD Inject 25 Units subcutaneously nightly Use as directed . [facility] dicyclomine (BENTYL) 10 MG capsule 2018-12-13 17:58:14 Y es 10mg Q.[id number] Take 10 mg by mouth 3 (three) times daily. 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 [facility] pantoprazole (PROTONIX) 20 MG tablet 2018-12-13 17:58:14 Ye s 20mg Take 20 mg by mouth 2 (two) times daily before meals. [facility] traMADol (ULTRAM) 50 mg tablet 2018-12-13 17:58:14 Yes 50mg Q.[id number] Take 50 mg by mouth 3 (three) times daily. [facility] insulin aspart U-100 (NOVOLOG) 100 unit/mL injection 2 17:58:13 Yes type 2 diabetes mellitus 5U Inj ect 5 Units subcutaneously 3 (three) times daily before meals. [facility] Ondansetron (Ondansetron Odt) 8 Mg TAB.RAPDIS Ondanset roberth (Ondansetron Odt) 8 Mg TAB.RAPDIS 2018-12-12 19:01:00 2019-07-10 00:00:00 No 4 Three Times A Day as needed for Nausea, Vomiting [facility] Promethazine Hcl (Phenergan Supp*) 25 Mg SUPP Prometha zine Hcl (Phenergan Supp*) 25 Mg SUPP 2018-12-12 19:01:2019-07-10 00:00:00 No 25 Three Times A Day as needed for Nausea, Vomiting [facility] Metoclopramide Hcl (Reglan) 10 Mg TABLET [...] Lisinopril Lisinopril Yes 5 Daily [facility] Ondansetron Hcl Ondansetron Hcl Yes 4 Every 6 Hours as needed for Nausea [facility] Dicyclomine Hcl Dicyclomine Hcl 2019-07-10 00:00:00 No 10 Three Times A Day [facility] Promethazine Hcl Promethazine Hcl 2019-07-10 00:00:00 No 25 Three Times A Day as needed for Nausea [facility] Tramadol Hcl (Ultram 50MG*) 50 Mg TAB Tramadol Hcl (Ultram 50MG* ) 50 Mg TAB 2019-07-10 00:00:00 No 1 Three Times A Day as needed for Mild Pain (1-3) Or Fever>100.8 [facility] Glimepiride Glimepiride 2019-07-09 00:00:00 No 2 D aily [facility] Metoclopramide Hcl (Reglan) 10 Mg TABLET Metoclopramid e Hcl (Reglan) 10 Mg TABLET 2018-11-25 00:00:00 No 1 Bedtime [facility] Metoclopramide Hcl Metoclopramide Hcl 2018-11-25 00:00:00 No 10 Three Times A Day [facility] Metoclopramide Hcl (Reglan) 10 Mg TABLET [...] Observation Time Observation Value Comments Source Weight 2019-11-17 21:10:00 183 [lb_av] [facility] BMI (Body Mass Index) 2019-11-17 21:10:00 24.1 kg/m2 [facility] Body Temperature 2019-11-12 00:41:00 97.5 [degF] [facility] Weight 2019-11-11 22:05:00 183 [lb_av] [facility] BMI (Body Mass Index) 2019-11-11 22:05:00 24.1 kg/m2 [facility] Weight 2019-11-07 16:35:00 183 [lb_av] [facility] BMI (Body Mass Index) 2019-11-07 16:35:00 24.1 kg/m2 [facility] Body Temperature 2019-10-28 16:21:00 98.1 [degF] [facility] Weight 2019-10-27 17:29:00 184 [lb_av] [facility] BMI (Body Mass Index) 2019-10-27 17:29:00 24.3 kg/m2 [facility] Body Temperature 2019-10-06 11:55:00 98.0 [degF] The [...] Systolic blood pressure 2018-12-14 15:44:00 160 mm[Hg] [facility] Diastolic blood pressure 2018-12-14 15:44:00 82 mm[Hg] [facility] Heart rate 2018-12-14 15:44:00 69 /min [facility] Body temperature 2018-12-14 15:44:00 37.44 Sarai [facility] Respiratory rate 2018-12-14 15:44:00 18 /min [facility] Oxygen saturation in Arterial blood by Pulse oximetry 12-14 15:44:00 97 [facility] Measured 2018-12-13 10:20:00 86.274 kg [facility] Procedures Procedure Date / Time Performed Performing Clinician Julianne irvin EXCISION OF DUODENUM, ENDO, DIAGN 2019-10-05 00:00:00 [facility] EXCISION OF STOMACH, PYLORUS, ENDO, DIAGN 2019-10-05 00:00:00 [facility] SCAN 2018-12-16 09:02:06 Pro vider, Default Scanning [facility] POCT-GLUCOSE METER 2018-12-14 17:15:00 Shant Mott ran [facility] POCT-GLUCOSE METER 2018-12-14 12:04:00 Shant Mott [facility] ECG 12-LEAD 2018-12-14 10:08:16 Shant Mott [facility] POCT-GLUCOSE METER 2018-12-14 07:43:00 Shant Mott [facility] BASIC METABOLIC PANEL (7) 2018-12-14 04:58:00 Gadicherla, Sharon Muralinath [facility] PHOSPHORUS 2018-12-14 04:58:00 Gadicherla, Sharon Muralinath [facility] MAGNESIUM 2018-12-14 04:58:00 Gadicherla, Sharon Muralinath [facility] CBC W/PLT COUNT & AUTO DIFFERENTIAL 2018-12-14 04:58:00 Jared cherla, Sharon Muralinath [facility] POCT-GLUCOSE METER 2018-12-13 21:09:00 Gadicherla, Sharon Muralin [facility] POCT-GLUCOSE METER 2018-12-13 15:54:00 Gadicherla, Sharon Muralin [facility] BASIC METABOLIC PANEL (7) 2018-12-13 15:38:00 Gadicherla, Sharon Muralinath [facility] HEPATIC FUNCTION PANEL 2018-12-13 15:38:00 Gadicherla, Sharon Mur alinath [facility] HEMOGLOBIN A1C 2018-12-13 15:38:00 Gadicherla, Sharon Muralinath [facility] LIPID PANEL 2018-12-13 15:38:00 Gadicherla, Sharon Muralinath [facility] CBC W/PLT COUNT & AUTO DIFFERENTIAL 2018-12-13 15:38:00 Jared cherla, Sharon Muralinath [facility] POCT-GLUCOSE METER 2018-12-13 12:25:00 Gadicherla, Sharon Muralin [facility] Plan of Care Planned Activity Planned Date Details Comments Source Instructions Vomiting - Adult [facility] Encounters Start Date/Time End Date/Time Encounter Type Admission Type Attendi ng Clinicians Care Facility Care Department Encounter ID Source 2019-11-17 21:49:00 2019-11-18 01:35:00 Departed Emergency Room [facility] [id number] [facility] 2019-11-11 22:15:00 2019-11-12 00:38:00 Departed Emergency Room 1 ALEISHA LYNNE [facility] [id number] [facility] 2019-11-07 16:24:00 2019-11-07 19:30:00 Departed Emergency Room [facility] [id number] [facility] 2019-10-27 14:43:00 2019-10-28 17:55:00 Discharged Inpatient [facility] [id number] [facility] 2019-10-04 00:35:00 2019-10-06 12:14:00 Discharged Inpatient 1 ERICKROBERTH HENSONALD [facility] [id number] [facility] 2019-09-30 08:15:00 2019-09-30 14:10:00 Departed Emergency Room 1 JEANNIE QUINONES MD [facility] [id number] [facility] 2019-09-29 20:40:00 2019-09-29 23:05:00 Departed Emergency Room [facility] [id number] [facility] 2019-09-22 09:41:00 2019-09-24 08:22:00 Discharged Inpatient 1 RUSLAN CARTER [facility] [id number] [facility] 2019-09-21 07:02:00 2019-09-21 11:05:00 Departed Emergency Room [facility] [id number] [facility] 2019-09-20 20:47:00 2019-09-20 23:35:00 [facility]ed [facility] [id number] [facility] 2019-08-24 08:10:00 2019-08-25 14:00:00 Discharged Inpatient (obs) [facility] [id number] [facility] 2019-08-23 17:24:00 2019-08-23 19:35:00 Departed Emergency Room [facility] [id number] [facility] 2019-07-23 06:38:00 2019-07-24 13:59:00 Discharged Inpatient 1 NEIL PEREZ [facility] [id number] [facility] 2019-07-09 15:58:00 2019-07-10 18:57:00 Discharged Inpatient (obs) [facility] [id number] [facility] 2019-07-06 11:09:00 2019-07-06 14:11:00 Departed Emergency Room [facility] [id number] [facility] 2019-05-31 00:00:00 2019-05-31 00:00:00 Transition of Care DasiaZaina Nohemy Garcia [id number] 2018-12-13 06:33:00 2018-12-13 08:35:00 Departed Emergency Room [facility] [id number] [facility] 2018-12-12 17:07:00 2018-12-12 19:35:00 Departed Emergency Room [facility] [id number] [facility] 2018-11-22 18:24:00 2018-11-25 16:05:00 Discharged Inpatient 1 ISACC JAVED [facility] [id number] [facility] 2018-09-28 12:15:00 2018-09-28 16:32:00 Departed Emergency Room [facility] [id number] [facility] 2018-09-20 08:55:00 2018-09-20 08:55:00 Registered Clinic 3 TAVIA GARCIA [facility] [id number] [facility] 2018-08-10 13:35:00 2018-08-10 17:00:00 Departed Emergency Room [facility] [id number] [facility] 2018-07-05 11:53:00 2018-07-07 08:40:00 Discharged Inpatient [facility] [id number] [facility] 2018-06-23 07:38:00 2018-06-23 07:38:00 Registered Clinic 3 TAVIA GARCIA [facility] [id number] [facility] Results Test Description Test Time Test Comments Results Result Comments Source ABDOMEN COMPLETE - HOPD 2019-11-12 00:00:00 [place] [address] Patient Name: BREE LINDSAY MR #: [id number] : 1975 Age/Sex: 43/M Req #: [id number] Adm Physician: Ordered by: ALEISHA LYNNE MD Report #: [id number] Location: [facility] Room/Bed: Procedure: [id number] HOPD/ABDOMEN COMPLETE - HOPD Exam Date: 11/11/19 [...] Test Item Bedside Glucose (test code = 51498-6) 62 70-120 Meter ID: [id number] Hospitals of [facility] CampusCapillary blood glucose measurement by glucometer (mass/volume)2019-10-28 15:46:00* Test Item Value Reference Range Interpretation Comments Bedside Glucose (test code = 91714-9) 62 70-120 Meter ID: [id number] Hospitals of [facility] CampusCapillary blood glucose measurement by glucometer (mass/volume)2019-10-28 15:46:00* Test Item Value Reference Range Interpretation Comments Bedside Glucose (test code = 24125-3) 62 70-120 Meter ID: [id number] Hospitals of [facility] CampusCapillary blood glucose measurement by glucometer (mass/volume)2019-10-28 15:46:00* Test Item Value Reference Range Interpretation Comments Bedside Glucose (test code = 07227-4) 62 70-120 Meter ID: [id number] L. Murphy [facility] Hospitalerum or plasma sodium measurement (moles/volume)2019-10-28 04:50:00* Test Item Value Reference Range Interpretation Comments Sodium Level (test code = 2951-2) 141 136-145 [facility] or plasma potassium measurement (moles/volume)2019-10-28 04:50:00* Test Item Value Reference Range Interpretation Comments Potassium Level (test code = 2823-3) 3.7 3.5-5.1 [facility] or plasma chloride measurement (moles/volume)2019-10-28 04:50:00* Test Item Value Reference Range Interpretation Comments Chloride Level (test code = 2075-0) 106 98-107 [facility] Hospital[facility] or plasma carbon dioxide, total measurement (moles/volume)2019-10-28 04:50:00* Test Item Value Reference Range Interpretation Comments Carbon Dioxide Level (test code = 2028-9) 24 22-29 [facility] or plasma anion [id number] 04:50:00* Test Item Value Reference Range Interpretation Comments Anion Gap (test code = 82472-8) 14.7 8-16 [facility] or plasma urea nitrogen measurement (mass/volume)2019-10-28 04:50:00* Test Item Value Reference Range Interpretation Comments Blood Urea Nitrogen (test code = 3094-0) 17 7-26 [facility] or plasma creatinine measurement (mass/volume)2019-10-28 04:50:00* Test Item Value Reference Range Interpretation Comments Creatinine (test code = 2160-0) 1.15 0.72-1.25 [facility] or plasma urea nitrogen/creatinine mass [id number] 04:50:00* Test Item Value Reference Range Interpretation Comments BUN/Creatinine Ratio (test code = 3097-3) 15 6-25 [facility] CampusEstimated glomerular filtration rate (GFR) [id number] 04:50:00* Test Item Value Reference Range Interpretation Comments Estimat Glomerular Filtration Rate (test code = 966365796) > 60 >60 Ranges were taken from the National Kidney Disease Education Program and the [facility] Kid[facility] Foundation literature.Reference ranges:60 or greater: Bfpgnb47-02 ( for 3 consecutive months): Chronic kidney disease 15 or less: Kidney failureThe Hospitals of Providence [facility] CampusGlucose [id number] 04:50:00* Test Item Value Reference Range Interpretation Comments Glucose Level (test code = ZAU3816) 246 74-118 [facility] or plasma calcium measurement (mass/volume)2019-10-28 04:50:00* Test Item Value Reference Range Interpretation Comments Calcium Level (test code = 25142-3) 8.4 8.4-10.2 [facility] CampusFluoroscopic procedure less than one hour [id number] 04:50:00* Test Item Value Reference Range Interpretation Comments Hemoglobin A1c Percent (test code = Hemoglobin A1c Percent) 9.9 4.0-7.0 [facility] Hospital[facility] or plasma lipase measurement (enzymatic activity/volume)2019-10-28 04:50:00* Test Item Value Reference Range Interpretation Comments Lipase (test code = 3040-3) < 4 8-78 [facility] Hospital[facility] or plasma sodium measurement (moles/volume)2019-10-28 04:50:00* Test Item Value Reference Range Interpretation Comments Sodium Level (test code = 2951-2) 141 136-145 [facility] or plasma potassium measurement (moles/volume)2019-10-28 04:50:00* Test Item Value Reference Range Interpretation Comments Potassium Level (test code = 2823-3) 3.7 3.5-5.1 [facility] or plasma chloride measurement (moles/volume)2019-10-28 04:50:00* Test Item Value Reference Range Interpretation Comments Chloride Level (test code = 2075-0) 106 98-107 [facility] or plasma carbon dioxide, total measurement (moles/volume)2019-10-28 04:50:00* Test Item Value Reference Range Interpretation Comments Carbon Dioxide Level (test code = 2028-9) 24 22-29 [facility] Hospital[facility] or plasma anion [id number] 04:50:00* Test Item Value Reference Range Interpretation Comments Anion Gap (test code = 76898-9) 14.7 8-16 [facility] or plasma urea nitrogen measurement (mass/volume)2019-10-28 04:50:00* Test Item Value Reference Range Interpretation Comments Blood Urea Nitrogen (test code = 3094-0) 17 7-26 [facility] or plasma creatinine measurement (mass/volume)2019-10-28 04:50:00* Test Item Value Reference Range Interpretation Comments Creatinine (test code = 2160-0) 1.15 0.72-1.25 [facility] Hospital[facility] or plasma urea nitrogen/creatinine mass [id number] 04:50:00* Test Item Value Reference Range Interpretation Comments BUN/Creatinine Ratio (test code = 3097-3) 15 6-25 [facility] CampusEstimated glomerular filtration rate (GFR) [id number] 04:50:00* Test Item Value Reference Range Interpretation Comments Estimat Glomerular Filtration Rate (test code = 166575689) > 60 >60 Ranges were taken from the National Kidney Disease Education Program and the [facility] Kid[facility] Foundation literature.Reference ranges:60 or greater: Jiekcn16-19 ( for 3 consecutive months): Chronic kidney disease 15 or less: Kidney failureThe Hospitals of Providence [facility] CampusGlucose skxpcwrmlic4302-71-27 04:50:00* Test Item Value Reference Range Interpretation Comments Glucose Level (test code = ZGL7843) 246 74-118 [facility] Hospitaler[facility] or plasma calcium measurement (mass/volume)2019-10-28 04:50:00* Test Item Value Reference Range Interpretation Comments Calcium Level (test code = 09809-4) 8.4 8.4-10.2 [facility] CampusFluoroscopic procedure less than one hour [id number] 04:50:00* Test Item Value Reference Range Interpretation Comments Hemoglobin A1c Percent (test code = Hemoglobin A1c Percent) 9.9 4.0-7.0 [facility] Hospitaler[facility] or plasma lipase measurement (enzymatic activity/volume)2019-10-28 04:50:00* Test Item Value Reference Range Interpretation Comments Lipase (test code = 3040-3) < 4 8-78 [facility] Hospitaler[facility] or plasma sodium measurement (moles/volume)2019-10-28 04:50:00* Test Item Value Reference Range Interpretation Comments Sodium Level (test code = 2951-2) 141 136-145 [facility] Hospitalerum or plasma potassium measurement (moles/volume)2019-10-28 04:50:00* Test Item Value Reference Range Interpretation Comments Potassium Level (test code = 2823-3) 3.7 3.5-5.1 [facility] chloride [facility] (moles/volume)2019-10-28 04:50:00* Test Item Value Reference Range Interpretation Comments Chloride Level (test code = 2075-0) 106 98-107 [facility] carbon dioxide, total measurement (moles/volume)2019-10-28 04:50:00* Test Item Value Reference Range Interpretation Comments Carbon Dioxide Level (test code = 2028-9) 24 22-29 [facility] anion [id number] 04:50:00* Test Item Value Reference Range Interpretation Comments Anion Gap (test code = 72995-0) 14.7 8-16 [facility] urea nitrogen measurement (mass/volume)2019-10-28 04:50:00* Test Item Value Reference Range Interpretation Comments Blood Urea Nitrogen (test code = 3094-0) 17 7-26 [facility] creatinine measurement (mass/volume)2019-10-28 04:50:00* Test Item Value Reference Range Interpretation Comments Creatinine (test code = 2160-0) 1.15 0.72-1.25 [facility] urea nitrogen/creatinine mass ecuyy9497-09-56 04:50:00* Test Item Value Reference Range Interpretation Comments BUN/Creatinine Ratio (test code = 3097-3) 15 6-25 [facility] CampusEstimated glomerular filtration rate (GFR) ftibfpgkgremd6537-57-33 04:50:00* Test Item Value Reference Range Interpretation Comments Estimat Glomerular Filtration Rate (test code = 399987956) > 60 >60 Ranges were taken from the National Kidney Disease Education Program and the [facility] Kid[facility] Foundation literature.Reference ranges:60 or greater: Jktfho53-74 ( for 3 consecutive months): Chronic kidney disease 15 or less: Kidney failureThe Hospitals of [facility] CampusGlucose ffrhzoxmgot1404-54-57 04:50:00* Test Item Value Reference Range Interpretation Comments Glucose Level (test code = ZUT9631) 246 74-118 [facility]er[facility] calcium measurement (mass/volume)2019-10-28 04:50:00* Test Item Value Reference Range Interpretation Comments Calcium Level (test code = 86224-8) 8.4 8.4-10.2 [facility] CampusFluoroscopic procedure less than one hour tsxkstge4262-42-77 04:50:00* Test Item Value Reference Range Interpretation Comments Hemoglobin A1c Percent (test code = Hemoglobin A1c Percent) 9.9 4.0-7.0 [facility] Hospitaler[facility] or plasma lipase measurement (enzymatic activity/volume)2019-10-28 04:50:00* Test Item Value Reference Range Interpretation Comments Lipase (test code = 3040-3) < 4 8-78 [facility] sodium measurement (moles/volume)2019-10-28 04:50:00* Test Item Value Reference Range Interpretation Comments Sodium Level (test code = 2951-2) 141 136-145 [facility]er[facility] potassium measurement (moles/volume)2019-10-28 04:50:00* Test Item Value Reference Range Interpretation Comments Potassium Level (test code = 2823-3) 3.7 3.5-5.1 [facility] Hospitaler[facility] or plasma chloride measurement (moles/volume)2019-10-28 04:50:00* Test Item Value Reference Range Interpretation Comments Chloride Level (test code = 2075-0) 106 98-107 [facility] Hospitaler[facility] plasma carbon dioxide, total measurement (moles/volume)2019-10-28 04:50:00* Test Item Value Reference Range Interpretation Comments Carbon Dioxide Level (test code = 2028-9) 24 22-29 [facility]er[facility] plasma anion [id number] 04:50:00* Test Item Value Reference Range Interpretation Comments Anion Gap (test code = 68187-7) 14.7 8-16 [facility] Hospitaler[facility] or plasma urea nitrogen measurement (mass/volume)2019-10-28 04:50:00* Test Item Value Reference Range Interpretation Comments Blood Urea Nitrogen (test code = 3094-0) 17 7-26 [facility]er[facility] plasma creatinine measurement (mass/volume)2019-10-28 04:50:00* Test Item Value Reference Range Interpretation Comments Creatinine (test code = 2160-0) 1.15 0.72-1.25 [facility]er[facility] urea nitrogen/creatinine mass fvbod4134-14-65 04:50:00* Test Item Value Reference Range Interpretation Comments BUN/Creatinine Ratio (test code = 3097-3) 15 6-25 [facility] CampusEstimated glomerular filtration rate (GFR) qnxeuppfmhaws9799-57-70 04:50:00* Test Item Value Reference Range Interpretation Comments Estimat Glomerular Filtration Rate (test code = 409085900) > 60 >60 Ranges were taken from the National Kidney Disease Education Program and the [facility] Foundation literature.Reference ranges:60 or greater: Zjjpxd69-51 ( for 3 consecutive months): Chronic kidney disease 15 or less: Kidney failureThe Hospitals of [facility] CampusGlucose yshitnzdypv2892-08-92 04:50:00* Test Item Value Reference Range Interpretation Comments Glucose Level (test code = UNI3646) 246 74-118 [facility] Hospitaler[facility] plasma calcium measurement (mass/volume)2019-10-28 04:50:00* Test Item Value Reference Range Interpretation Comments Calcium Level (test code = 56443-5) 8.4 8.4-10.2 [facility] CampusFluoroscopic procedure less than one hour smtrshvq2616-22-23 04:50:00* Test Item Value Reference Range Interpretation Comments Hemoglobin A1c Percent (test code = Hemoglobin A1c Percent) 9.9 4.0-7.0 [facility]er[facility] lipase measurement (enzymatic activity/volume)2019-10-28 04:50:00* Test Item Value Reference Range Interpretation Comments Lipase (test code = 3040-3) < 4 8-78 [facility] CampusFluoroscopic procedure less than one hour uyhehfhz0767-07-65 15:40:00* Test Item Value Reference Range Interpretation Comments Coronavirus (PCR) (test code = Coronavirus (PCR)) NOT DETECTED NOTD ETECT[employer] Apt[employer] SARS-CoV-2 assay is a nucleic amplification test intended for the qualitative detection of RNA from SARS-CoV-2 from nasopharyngeal (CHILD CARE CENTER ADMINISTRATOR) specimens . It is used under Emergency [...] for reprat testing oc clinically indicated.Tesing performed by:[facility] [address] [place] [address] [id number] hart MD, PhD [facility] CampusFluoroscopic procedure less than one hour rtfqlkpe5451-81-52 15:40:00* Test Item Value Reference Range Interpretation Comments Coronavirus (PCR) (test code = Coronavirus (PCR)) NOT DETECTED NOTD ETECTED [employer] Aptima SARS-CoV-2 assay is a nucleic amplification test intended for the qualitative detection of RNA from SARS-CoV-2 from nasopharyngeal (CHILD CARE CENTER ADMINISTRATOR) specimens . It is used under Emergency Use Authorization (EUA) by [facility].A positive result is indicative of the presence [...] for reprat testing oc clinically indicated.Tesing performed by:[facility] [address] [place] [address] [id number] hart MD, PhD [facility] CampusFluoroscopic procedure less than one hour objmmdjv0230-79-24 15:40:00* Test Item Value Reference Range Interpretation Comments Coronavirus (PCR) (test code = Coronavirus (PCR)) NOT DETECTED NOTD [employer] Aptima SARS-CoV-2 assay is a nucleic amplification test intended for the qualitative detection of RNA from SARS-CoV-2 from nasopharyngeal (CHILD CARE CENTER ADMINISTRATOR) specimens . It is used under Emergency [...] for reprat testing oc clinically indicated.Tesing performed by:[facility] [address] [place] [address] [id number], Misael Mead MD, PhD [facility] CampusBlowat[facility] hospital leukocytes automated count (number/volume)2019-10-27 13:50:00* Test Item Value Reference Range Interpretation Comments White Blood Count (test code = 6690-2) 7.16 4.8-10.8 [facility] CampusBlow[facility] hospital erythrocytes automated count (number/volume)2019-10-27 13:50:00* Test Item Value Reference Range Interpretation Comments Red Blood Count (test code = 789-8) 3.97 4.3-5.7 [facility] CampusBlood hemoglobin measurement (moles/volume)2019-10-27 13:50:00* Test Item Value Reference Range Interpretation Comments Hemoglobin (test code = 73554-8) 11.2 14.0-18.0 [facility] CampusAutomated blood hematocrit (volume fraction)2019-10-27 13:50:00* Test Item Value Reference Range Interpretation Comments Hematocrit (test code = 4544-3) 35.7 38.2-49.6 [facility] CampusAutomated erythrocyte mean corpuscular cqntpg4893-15-85 13:50:00* Test Item Value Reference Range Interpretation Comments Mean Corpuscular Volume (test code = 787-2) 89.9 81-99 [facility] CampusAutomated erythrocyte mean corpuscular hemoglobin (mass per erythrocyte)2019-10-27 13:50:00* Test Item Value Reference Range Interpretation Comments Mean Corpuscular Hemoglobin (test code = 785-6) 28.2 28-32 [facility] CampusAutomated erythrocyte mean corpuscular hemoglobin concentration measurement (mass/volume)2019-10-27 13:50:00* Test Item Value Reference Range Interpretation Comments Mean Corpuscular Hemoglobin Concent (test code = 786-4) 31.4 31-35 [facility] CampusRDW OhqQz-Kyf4289-39-30 13:50:00* Test Item Value Reference Range Interpretation Comments Red Cell Distribution Width (test code = 32023-1) 13.1 11.7 -14.4 [facility] CampusAutomated blood platelet count (count/volume)2019-10-27 13:50:00* Test Item Value Reference Range Interpretation Comments Platelet Count (test code = 777-3) 226 140-360 [facility] CampusAutomated blood segmented neutrophil count as percentage of total xkfmgamrul9933-00-29 13:50:00* Test Item Value Reference Range Interpretation Comments Neutrophils (%) (Auto) (test code = 21078-0) 85.1 38.7-80.0 [facility] CampusAutomated blood lymphocyte count as percentage ot total nvusqjvdyy9897-57-49 13:50:00* Test Item Value Reference Range Interpretation Comments Lymphocytes (%) (Auto) (test code = 736-9) 10.3 18.0-39.1 [facility] CampusAutomated blood monocyte count as percentage of total qqsuorauco5760-49-06 13:50:00* Test Item Value Reference Range Interpretation Comments Monocytes (%) (Auto) (test code = 5905-5) 3.5 4.4-11.3 [facility] CampusAutomated blood eosinophil count as percentage of total nzjatofiln2896-19-70 13:50:00* Test Item Value Reference Range Interpretation Comments Eosinophils (%) (Auto) (test code = 713-8) 0.1 0.0-6.0 [facility] CampusAutomated blood basophil count as percentage of total swjrfbodfy2845-68-25 13:50:00* Test Item Value Reference Range Interpretation Comments Basophils (%) (Auto) (test code = 706-2) 0.7 0.0-1.0 [facility] CampusFluoroscopic procedure less than one hour dyudubgf9007-15-24 13:50:00* Test Item Value Reference Range Interpretation Comments IM GRANULOCYTES % (test code = IM GRANULOCYTES %) 0.3 0.0- 1.0 [facility] CampusAutomated blood neutrophil count 2019-10-27 13:50:00* Test Item Value Reference Range Interpretation Comments Neutrophils # (Auto) (test code = 751-8) 6.1 2.1-6.9 [facility] lymphocytes count (number/volume) 2019-10-27 13:50:00* Test Item Value Reference Range Interpretation Comments Lymphocytes # (Auto) (test code = 98125-1) 0.7 1.0-3.2 [facility] monocytes automated count (number/volume)2019-10-27 13:50:00* Test Item Value Reference Range Interpretation Comments Monocytes # (Auto) (test code = 742-7) 0.3 0.2-0.8 [facility] CampusAutomated blood eosinophil count 2019-10-27 13:50:00* Test Item Value Reference Range Interpretation Comments Eosinophils # (Auto) (test code = 711-2) 0.0 0.0-0.4 [facility] CampusAutformerly [facility] blood basophil count (count/volume)2019-10-27 13:50:00* Test Item Value Reference Range Interpretation Comments Basophils # (Auto) (test code = 704-7) 0.1 0.0-0.1 [facility] CampusFluoroscopic procedure less than one hour ryjvisrj3149-35-07 13:50:00* Test Item Value Reference Range Interpretation Comments Absolute Immature Granulocyte (auto (zeenat t code = Absolute Immature Granulocyte (auto) 0.02 0-0.1 [facility] leukocytes automated count (number/volume)2019-10-27 13:50:00* Test Item Value Reference Range Interpretation Comments White Blood Count (test code = 6690-2) 7.16 4.8-10.8 [facility] CampusBlood erythrocytes automated count (number/volume)2019-10-27 13:50:00* Test Item Value Reference Range Interpretation Comments Red Blood Count (test code = 789-8) 3.97 4.3-5.7 [facility] CampusBlood hemoglobin measurement (moles/volume)2019-10-27 13:50:00* Test Item Value Reference Range Interpretation Comments Hemoglobin (test code = 86475-7) 11.2 14.0-18.0 [facility] CampusAutomated blood hematocrit (volume fraction)2019-10-27 13:50:00* Test Item Value Reference Range Interpretation Comments Hematocrit (test code = 4544-3) 35.7 38.2-49.6 [facility] CampusAutomated erythrocyte mean corpuscular zxpewx1337-65-79 13:50:00* Test Item Value Reference Range Interpretation Comments Mean Corpuscular Volume (test code = 787-2) 89.9 81-99 [facility] CampusAutomated erythrocyte mean corpuscular hemoglobin (mass per erythrocyte)2019-10-27 13:50:00* Test Item Value Reference Range Interpretation Comments Mean Corpuscular Hemoglobin (test code = 785-6) 28.2 28-32 [facility] CampusAutomated erythrocyte mean corpuscular hemoglobin concentration measurement (mass/volume)2019-10-27 13:50:00* Test Item Value Reference Range Interpretation Comments Mean Corpuscular Hemoglobin Concent (test code = 786-4) 31.4 31-35 [facility] CampusRDW TgzZb-Uyh4494-30-30 13:50:00* Test Item Value Reference Range Interpretation Comments Red Cell Distribution Width (test code = 51258-8) 13.1 11.7 -14.4 [facility] CampusAutomated blood platelet count (count/volume)2019-10-27 13:50:00* Test Item Value Reference Range Interpretation Comments Platelet Count (test code = 777-3) 226 140-360 [facility] CampusAutomated blood segmented neutrophil count as percentage of total nzhclqwnrp2831-71-05 13:50:00* Test Item Value Reference Range Interpretation Comments Neutrophils (%) (Auto) (test code = 02817-6) 85.1 38.7-80.0 [facility] CampusAutomated blood lymphocyte count as percentage ot total hbenuhkrtr4972-15-87 13:50:00* Test Item Value Reference Range Interpretation Comments Lymphocytes (%) (Auto) (test code = 736-9) 10.3 18.0-39.1 [facility] CampusAutomated blood monocyte count as percentage of total ezdvcvusdo4469-58-47 13:50:00* Test Item Value Reference Range Interpretation Comments Monocytes (%) (Auto) (test code = 5905-5) 3.5 4.4-11.3 [facility] CampusAutomated blood eosinophil count as percentage of total xbhvfzykqn1299-22-48 13:50:00* Test Item Value Reference Range Interpretation Comments Eosinophils (%) (Auto) (test code = 713-8) 0.1 0.0-6.0 [facility] CampusAutomated blood basophil count as percentage of total hbindagwgn7805-45-83 13:50:00* Test Item Value Reference Range Interpretation Comments Basophils (%) (Auto) (test code = 706-2) 0.7 0.0-1.0 [facility] CampusFluoroscopic procedure less than one hour uoyiyjbz0296-52-16 13:50:00* Test Item Value Reference Range Interpretation Comments IM GRANULOCYTES % (test code = IM GRANULOCYTES %) 0.3 0.0- 1.0 [facility] CampusAutomated blood neutrophil count 2019-10-27 13:50:00* Test Item Value Reference Range Interpretation Comments Neutrophils # (Auto) (test code = 751-8) 6.1 2.1-6.9 [facility] CampusBlood lymphocytes count (number/volume) 2019-10-27 13:50:00* Test Item Value Reference Range Interpretation Comments Lymphocytes # (Auto) (test code = 16933-6) 0.7 1.0-3.2 [facility] CampusB[facility] monocytes automated count (number/volume)2019-10-27 13:50:00* Test Item Value Reference Range Interpretation Comments Monocytes # (Auto) (test code = 742-7) 0.3 0.2-0.8 [facility] CampusAutomated blood eosinophil count 2019-10-27 13:50:00* Test Item Value Reference Range Interpretation Comments Eosinophils # (Auto) (test code = 711-2) 0.0 0.0-0.4 [facility] count (count/volume)2019-10-27 13:50:00* Test Item Value Reference Range Interpretation Comments Basophils # (Auto) (test code = 704-7) 0.1 0.0-0.1 [facility] CampusFluoroscopic procedure less than one hour eeigrxvt3240-77-96 13:50:00* Test Item Value Reference Range Interpretation Comments Absolute Immature Granulocyte (auto (zeenat t code = Absolute Immature Granulocyte (auto) 0.02 0-0.1 [facility] leukocytes automated count (number/volume)2019-10-27 13:50:00* Test Item Value Reference Range Interpretation Comments White Blood Count (test code = 6690-2) 7.16 4.8-10.8 [facility] erythrocytes automated count (number/volume)2019-10-27 13:50:00* Test Item Value Reference Range Interpretation Comments Red Blood Count (test code = 789-8) 3.97 4.3-5.7 [facility] hemoglobin measurement (moles/volume)2019-10-27 13:50:00* Test Item Value Reference Range Interpretation Comments Hemoglobin (test code = 55536-1) 11.2 14.0-18.0 [facility] blood hematocrit (volume fraction)2019-10-27 13:50:00* Test Item Value Reference Range Interpretation Comments Hematocrit (test code = 4544-3) 35.7 38.2-49.6 [facility] CampusAutomated erythrocyte mean corpuscular rygprc3929-65-76 13:50:00* Test Item Value Reference Range Interpretation Comments Mean Corpuscular Volume (test code = 787-2) 89.9 81-99 [facility] CampusAutomated erythrocyte mean corpuscular hemoglobin (mass per erythrocyte)2019-10-27 13:50:00* Test Item Value Reference Range Interpretation Comments Mean Corpuscular Hemoglobin (test code = 785-6) 28.2 28-32 [facility] CampusAutomated erythrocyte mean corpuscular hemoglobin concentration measurement (mass/volume)2019-10-27 13:50:00* Test Item Value Reference Range Interpretation Comments Mean Corpuscular Hemoglobin Concent (test code = 786-4) 31.4 31-35 [facility] CampusRDW WouTq-Jog4623-56-30 13:50:00* Test Item Value Reference Range Interpretation Comments Red Cell Distribution Width (test code = 07250-6) 13.1 11.7 -14.4 [facility] CampusAutomated blood platelet count (count/volume)2019-10-27 13:50:00* Test Item Value Reference Range Interpretation Comments Platelet Count (test code = 777-3) 226 140-360 [facility] CampusAutomated blood segmented neutrophil count as percentage of total ypfneqfihw7816-73-90 13:50:00* Test Item Value Reference Range Interpretation Comments Neutrophils (%) (Auto) (test code = 59682-6) 85.1 38.7-80.0 [facility] CampusAutomated blood lymphocyte count as percentage ot total gyvncobvxi7406-67-90 13:50:00* Test Item Value Reference Range Interpretation Comments Lymphocytes (%) (Auto) (test code = 736-9) 10.3 18.0-39.1 [facility] CampusAutomated blood monocyte count as percentage of total wcolosbnin6520-73-11 13:50:00* Test Item Value Reference Range Interpretation Comments Monocytes (%) (Auto) (test code = 5905-5) 3.5 4.4-11.3 [facility] CampusAutomated blood eosinophil count as percentage of total zqfdlsqfat5379-23-33 13:50:00* Test Item Value Reference Range Interpretation Comments Eosinophils (%) (Auto) (test code = 713-8) 0.1 0.0-6.0 [facility] CampusAutomated blood basophil count as percentage of total qmonlgjnkg6032-56-55 13:50:00* Test Item Value Reference Range Interpretation Comments Basophils (%) (Auto) (test code = 706-2) 0.7 0.0-1.0 [facility] CampusFluoroscopic procedure less than one hour nnccxswh7278-08-83 13:50:00* Test Item Value Reference Range Interpretation Comments IM GRANULOCYTES % (test code = IM GRANULOCYTES %) 0.3 0.0- 1.0 [facility] CampusAutomated blood neutrophil count 2019-10-27 13:50:00* Test Item Value Reference Range Interpretation Comments Neutrophils # (Auto) (test code = 751-8) 6.1 2.1-6.9 [facility] lymphocytes count (number/volume) 2019-10-27 13:50:00* Test Item Value Reference Range Interpretation Comments Lymphocytes # (Auto) (test code = 95267-3) 0.7 1.0-3.2 [facility] monocytes automated count (number/volume)2019-10-27 13:50:00* Test Item Value Reference Range Interpretation Comments Monocytes # (Auto) (test code = 742-7) 0.3 0.2-0.8 [facility] CampusAutomated blood eosinophil count 2019-10-27 13:50:00* Test Item Value Reference Range Interpretation Comments Eosinophils # (Auto) (test code = 711-2) 0.0 0.0-0.4 [facility] CampusAutomated blood basophil count (count/volume)2019-10-27 13:50:00* Test Item Value Reference Range Interpretation Comments Basophils # (Auto) (test code = 704-7) 0.1 0.0-0.1 [facility] CampusFluoroscopic procedure less than one hour nngfmbjz0875-06-67 13:50:00* Test Item Value Reference Range Interpretation Comments Absolute Immature Granulocyte (auto (zeenat t code = Absolute Immature Granulocyte (auto) 0.02 0-0.1 [facility] CampusBlood leukocytes automated count (number/volume)2019-10-27 13:50:00* Test Item Value Reference Range Interpretation Comments White Blood Count (test code = 6690-2) 7.16 4.8-10.8 [facility] erythrocytes automated count (number/volume)2019-10-27 13:50:00* Test Item Value Reference Range Interpretation Comments Red Blood Count (test code = 789-8) 3.97 4.3-5.7 [facility] CampusBlood hemoglobin measurement (moles/volume)2019-10-27 13:50:00* Test Item Value Reference Range Interpretation Comments Hemoglobin (test code = 60466-4) 11.2 14.0-18.0 [facility] CampusAutomated blood hematocrit (volume fraction)2019-10-27 13:50:00* Test Item Value Reference Range Interpretation Comments Hematocrit (test code = 4544-3) 35.7 38.2-49.6 [facility] CampusAutomated erythrocyte mean corpuscular uwzsrh4268-77-18 13:50:00* Test Item Value Reference Range Interpretation Comments Mean Corpuscular Volume (test code = 787-2) 89.9 81-99 [facility] CampusAutomated erythrocyte mean corpuscular hemoglobin (mass per erythrocyte)2019-10-27 13:50:00* Test Item Value Reference Range Interpretation Comments Mean Corpuscular Hemoglobin (test code = 785-6) 28.2 28-32 [facility] CampusAutomated erythrocyte mean corpuscular hemoglobin concentration measurement (mass/volume)2019-10-27 13:50:00* Test Item Value Reference Range Interpretation Comments Mean Corpuscular Hemoglobin Concent (test code = 786-4) 31.4 31-35 [facility] CampusRDW WlbMv-Dta3659-67-30 13:50:00* Test Item Value Reference Range Interpretation Comments Red Cell Distribution Width (test code = 95369-5) 13.1 11.7 -14.4 [facility] CampusAutomated blood platelet count (count/volume)2019-10-27 13:50:00* Test Item Value Reference Range Interpretation Comments Platelet Count (test code = 777-3) 226 140-360 [facility] CampusAutomated blood segmented neutrophil count as percentage of total yppjmhszmn0008-80-20 13:50:00* Test Item Value Reference Range Interpretation Comments Neutrophils (%) (Auto) (test code = 19546-4) 85.1 38.7-80.0 [facility] CampusAutomated blood lymphocyte count as percentage ot total wfmegnprbx2591-92-23 13:50:00* Test Item Value Reference Range Interpretation Comments Lymphocytes (%) (Auto) (test code = 736-9) 10.3 18.0-39.1 [facility] CampusAutomated blood monocyte count as percentage of total ecatdvgmtp3192-56-69 13:50:00* Test Item Value Reference Range Interpretation Comments Monocytes (%) (Auto) (test code = 5905-5) 3.5 4.4-11.3 [facility] CampusAutformerly [facility] blood eosinophil count as percentage of total wlmugktplb5735-15-38 13:50:00* Test Item Value Reference Range Interpretation Comments Eosinophils (%) (Auto) (test code = 713-8) 0.1 0.0-6.0 [facility] CampusAutomated blood basophil count as percentage of total scaahfdfor3054-66-53 13:50:00* Test Item Value Reference Range Interpretation Comments Basophils (%) (Auto) (test code = 706-2) 0.7 0.0-1.0 [facility] CampusFluoroscopic procedure less than one hour jrqprabs3891-39-20 13:50:00* Test Item Value Reference Range Interpretation Comments IM GRANULOCYTES % (test code = IM GRANULOCYTES %) 0.3 0.0- 1.0 [facility] CampusAutomated blood neutrophil count 2019-10-27 13:50:00* Test Item Value Reference Range Interpretation Comments Neutrophils # (Auto) (test code = 751-8) 6.1 2.1-6.9 [facility] CampusBlood lymphocytes count (number/volume) 2019-10-27 13:50:00* Test Item Value Reference Range Interpretation Comments Lymphocytes # (Auto) (test code = 81299-5) 0.7 1.0-3.2 [facility]at[facility] monocytes automated count (number/volume)2019-10-27 13:50:00* Test Item Value Reference Range Interpretation Comments Monocytes # (Auto) (test code = 742-7) 0.3 0.2-0.8 [facility] CampusAutomated blood eosinophil count 2019-10-27 13:50:00* Test Item Value Reference Range Interpretation Comments Eosinophils # (Auto) (test code = 711-2) 0.0 0.0-0.4 [facility] bas[facility] count (count/volume)2019-10-27 13:50:00* Test Item Value Reference Range Interpretation Comments Basophils # (Auto) (test code = 704-7) 0.1 0.0-0.1 [facility] CampusFluoroscopic procedure less than one hour pbyrhtlo2828-35-76 13:50:00* Test Item Value Reference Range Interpretation Comments Absolute Immature Granulocyte (auto (zeenat t code = Absolute Immature Granulocyte (auto) 0.02 0-0.1 [facility] leukocytes automated count (number/volume)2019-10-06 05:15:00* Test Item Value Reference Range Interpretation Comments White Blood Count (test code = 6690-2) 7.83 4.8-10.8 [facility] erythrocytes automated count (number/volume)2019-10-06 05:15:00* Test Item Value Reference Range Interpretation Comments Red Blood Count (test code = 789-8) 3.95 4.3-5.7 [facility] hemoglobin measurement (moles/volume)2019-10-06 05:15:00* Test Item Value Reference Range Interpretation Comments Hemoglobin (test code = 88626-4) 11.2 14.0-18.0 [facility] CampusAutformerly [facility]ed blood hematocrit (volume fraction)2019-10-06 05:15:00* Test Item Value Reference Range Interpretation Comments Hematocrit (test code = 4544-3) 35.5 38.2-49.6 [facility] CampusAutomated erythrocyte mean corpuscular jiifuv0395-47-29 05:15:00* Test Item Value Reference Range Interpretation [...] [facility] CampusRDW VnxXa-Xqr7082-50-09 05:15:00* Test Item Value Reference Range Interpretation Comments Red Cell Distribution Width (test code = 45591-4) 13.4 11.7 -14.4 [facility] CampusAutomated blood platelet count (count/volume)2019-10-06 05:15:00* Test Item Value Reference Range Interpretation Comments Platelet Count (test code = 777-3) 243 140-360 [facility] CampusAutformerly [facility]ed blood segmented neutrophil count as percentage of total yrxpbcdteu4948-39-21 05:15:00* Test Item Value Reference Range Interpretation Comments Neutrophils (%) (Auto) (test code = 52359-8) 57.1 38.7-80.0 [facility] CampusAutomated blood lymphocyte count as percentage ot total ylaouhveon7272-95-24 05:15:00* Test Item Value Reference Range Interpretation Comments Lymphocytes (%) (Auto) (test code = 736-9) 31.9 18.0-39.1 [facility] CampusAutformerly [facility]ed blood monocyte count as percentage of total zlsfdqryxe4137-61-55 05:15:00* Test Item Value Reference Range Interpretation Comments Monocytes (%) (Auto) (test code = 5905-5) 7.8 4.4-11.3 [facility] CampusAutomated blood eosinophil count as percentage of total pcjdipltwe8218-69-49 05:15:00* Test Item Value Reference Range Interpretation Comments Eosinophils (%) (Auto) (test code = 713-8) 2.2 0.0-6.0 [facility] CampusAutomated blood basophil count as percentage of total ictnkeeyka8573-65-26 05:15:00* Test Item Value Reference Range Interpretation Comments Basophils (%) (Auto) (test code = 706-2) 0.9 0.0-1.0 [facility] CampusFluoroscopic procedure less than one hour ekfvosmd5246-68-51 05:15:00* Test Item Value Reference Range Interpretation [...] Comments Lymphocytes # (Auto) (test code = 30652-0) 2.5 1.0-3.2 [facility] CampusB[facility]at[facility] hospital monocytes automated count (number/volume)2019-10-06 05:15:00* Test Item [...] City CampusFluoroscopic procedure less than one hour hckguhbp7228-70-29 05:15:00* Test Item Value Reference Range Interpretation Comments Absolute Immature Granulocyte (auto (zeenat t code = Absolute Immature Granulocyte (auto) 0.01 0-0.1 [facility] Hospitaler[facility] or plasma sodium measurement (moles/volume)2019-10-06 05:15:00* Test Item Value Reference Range Interpretation Comments Sodium Level (test code = 2951-2) 135 136-145 [facility] Hospitalerum or plasma potassium measurement (moles/volume)2019-10-06 05:15:00* Test Item Value Reference Range Interpretation Comments Potassium Level (test code = 2823-3) 3.4 3.5-5.1 [facility] Hospitalerum or plasma chloride measurement (moles/volume)2019-10-06 05:15:00* Test Item Value Reference Range Interpretation Comments Chloride Level (test code = 2075-0) 99 98-107 [facility] Hospitalerum or plasma carbon dioxide, total measurement (moles/volume)2019-10-06 05:15:00* Test Item Value Reference Range Interpretation Comments Carbon Dioxide Level (test code = 2028-9) 29 22-29 [facility] Hospitalerum or plasma anion clp3810-40-54 05:15:00* Test Item Value Reference Range Interpretation Comments Anion Gap (test code = 42888-5) 10.4 8-16 [facility] Hospitalerum or plasma urea nitrogen measurement (mass/volume)2019-10-06 05:15:00* Test Item Value Reference Range Interpretation Comments Blood Urea Nitrogen (test code = 3094-0) < 5 7-26 [facility] Hospitalerum or plasma creatinine measurement (mass/volume)2019-10-06 05:15:00* Test Item Value Reference Range Interpretation Comments Creatinine (test code = 2160-0) 1.04 0.72-1.25 [facility] Hospitaler[facility] or plasma urea nitrogen/creatinine mass vrwpb0525-46-51 05:15:00* Test Item Value Reference Range Interpretation Comments BUN/Creatinine Ratio (test code = 3097-3) 5 6-25 [facility] CampusEstimated glomerular filtration rate (GFR) scgtolibkreuu1160-07-64 05:15:00* Test Item Value Reference Range Interpretation Comments Estimat Glomerular Filtration Rate (test code = 256346597) > 60 >60 Ranges were taken from the National Kidney Disease Education Program and the [place] [facility] careal Kidney Foundation literature.Reference ranges:60 or greater: Zlyuvf03-54 ( for 3 consecutive months): Chronic kidney disease 15 or less: Kidney failureThe Hospitals of [facility] CampusGlucose wboknoucpdl4898-39-90 05:15:00* Test Item Value Reference Range Interpretation Comments Glucose Level (test code = TLQ6158) 202 74-118 [facility] Hospitalerum or plasma calcium measurement (mass/volume)2019-10-06 05:15:00* Test Item Value Reference Range Interpretation Comments Calcium Level (test code = 64583-3) 8.7 8.4-10.2 [facility] CampusCapillary blood glucose measurement by glucometer (mass/volume)2019-10-05 19:48:00* Test Item Value Reference Range Interpretation Comments Bedside Glucose (test code = 91490-8) 233 70-120 Meter ID: [id number] [facility]woodUrine color vpxwckuicdrqc9251-78-73 06:00:00* Test Item Value Reference Range Interpretation Comments Urine Color (test code = 5778-6) YELLOW YELLOW [facility] CampusUrine lxjxanh1195-70-97 06:00:00* Test Item Value Reference Range Interpretation Comments Urine Clarity (test code = 39345-2) CLEAR CLEAR [facility] Hospitalpecific gravity of Urine by Test strip 2019-10-05 06:00:00* Test Item Value Reference Range Interpretation Comments Urine Specific [place] (test code = 5811-5) 1.020 1.010-1.02 5 [facility] CampusUrine pH measurement by automated test iztuy4500-87-68 06:00:00* Test Item Value Reference Range Interpretation Comments Urine pH (test code = 05790-1) 7.5 5-7 [facility] CampusUrine leukocyte esterase detection by yybhikut1776-26-07 06:00:00* Test Item Value Reference Range Interpretation Comments Urine Leukocyte Esterase (test code = 5799-2) NEGATIVE NEGATIVE [facility] CampusUrine nitrite bymmszfrm2433-38-47 06:00:00* Test Item Value Reference Range Interpretation Comments Urine Nitrite (test code = 50665-0) NEGATIVE NEGATIVE [facility] CampusUrine protein measurement by test strip (mass/volume)2019-10-05 06:00:00* Test Item Value Reference Range Interpretation Comments Urine Protein (test code = 5804-0) NEGATIVE NEGATIVE [facility] CampusUrine glucose clduxegkb0127-56-94 06:00:00* Test Item Value Reference Range Interpretation Comments Urine Glucose (UA) (test code = 2349-9) 2+ NEGATIVE [facility] CampusUrine ketones detection by automated test qhase9433-71-07 06:00:00* Test Item Value Reference Range Interpretation Comments Urine Ketones (test code = 40831-1) TRACE NEGATIVE [facility] CampusUrine opiates screening lgvx6744-26-84 06:00:00* Test Item Value Reference Range Interpretation Comments Urine Opiates Screen (test code = 74512-5) POSITIVE NEGATIVE This test provides only a screen. Positive results should be repeated by a confi rmatory test.[facility] CampusBarbiturates screen, urine 2019-10-05 06:00:00* Test Item Value Reference Range Interpretation Comments Urine Barbiturates Screen (test code = 561784014) NEGATIVE NEGA TIVE [facility] CampusUrine phencyclidine detection by screening gdskjn1550-24-82 06:00:00* Test Item Value Reference Range Interpretation Comments Urine Phencyclidine Screen (test code = 79530-3) NEGATIVE NEGAT [place] [facility] CampusUrine amphetamines detection by screen method > 1000 ng/wX7867-54-47 06:00:00* Test Item Value Reference Range Interpretation Comments Urine Amphetamines Screen (test code = 23547-4) NEGATIVE NEGATI VE [facility] CampusFluoroscopic procedure less than one hour fxrcygxh2006-67-83 06:00:00* Test Item Value Reference Range Interpretation Comments Urine Methamphetamines Screen (test code = Urine Metha mphetamines Screen) NEGATIVE NEGATIVE [facility] CampusUrine benzodiazepines detection by screening fjteut2557-74-98 06:00:00* Test Item Value Reference Range Interpretation Comments Urine Benzodiazepines Screen (test code = 07590-6) NEGATIVE NEG ATIVE [facility] CampusUrine cocaine measurement (mass/volume) 2019-10-05 06:00:00* Test Item Value Reference Range Interpretation Comments Urine Cocaine Screen (test code = 3398-5) NEGATIVE NEGATIVE [facility] CampusUrine cannabinoids detection by screening opqobx9592-81-53 06:00:00* Test Item Value Reference Range Interpretation Comments Urine Cannabinoids Screen (test code = 69010-0) POSITIVE NEGATI VE This test provides only a screen. Positive results should be repeated by a confi rmatory test.[facility] CampusUrine methadone screen 2019-10-05 06:00:00* Test Item Value Reference Range Interpretation Comments Urine Methadone Screen (test code = 76698-8) NEGATIVE NEGATIVE THESE RESULTS ARE FOR MEDICAL TREATMENT ONLYTHIS REPORT CONTAINS UNCONFIR MED SCREENING RESULTS*POSITIVE RESULTS WILL BE CONFIRMED BY REFERENCE LAB UPON R EQUEST CUT-OFFDRUG CLASS CONCENTRATION ng/mLAmphetamines 1000Methamphetamines 1000Cocaine Metabolite 300Opiate 300Phencyc lidine 25Cannabinoid 50Barbiturates 300Benzodiazepine 300Methadone 300[facility] BrownwoodUrine urobilinogen measurement by test strip (mass/volume)2019-10-05 06:00:00* Test Item Value Reference Range Interpretation Comments Urine Urobilinogen (test code = 75273-1) 0.2 0.2-1 [facility] CampusUrine total bilirubin measurement (mass/volume)2019-10-05 06:00:00* Test Item Value Reference Range Interpretation Comments Urine Bilirubin (test code = 1978-6) NEGATIVE NEGATIVE [facility] CampusUrine erythrocytes zjrcbjkms0995-15-62 06:00:00* Test Item Value Reference Range Interpretation Comments Urine Blood (test code = 20635-4) TRACE NEGATIVE [facility] CampusAutomated urine sediment leukocyte count by microscopy (number/high power field)2019-10-05 06:00:00* Test Item Value Reference Range Interpretation Comments Urine WBC (test code = 5821-4) 0-5 0-5 [facility] CampusErythrocytes detection in urine sediment by light xcrqyemoyu8053-64-12 06:00:00* Test Item Value Reference Range Interpretation Comments Urine RBC (test code = 27978-9) 0-5 0-5 [facility] CampusBacteria detection in urine sediment by light oghbupywkj4549-02-41 06:00:00* Test Item Value Reference Range Interpretation Comments Urine Bacteria (test code = 62312-1) RARE NONE [facility] CampusEpithelial cells detection in urine sediment by light uotrxympur0982-18-63 06:00:00* Test Item Value Reference Range Interpretation Comments Urine Epithelial Cells (test code = 54387-5) RARE NONE [facility] CampusUrine color jqlwcujnpfrym9903-74-03 06:00:00* Test Item Value Reference Range Interpretation Comments Urine Color (test code = 5778-6) YELLOW YELLOW [facility] CampusUrine mrlewpu8679-90-38 06:00:00* Test Item Value Reference Range Interpretation Comments Urine Clarity (test code = 46569-2) CLEAR CLEAR [facility] Hospitalpecific gravity of Urine by Test strip 2019-10-05 06:00:00* Test Item Value Reference Range Interpretation Comments Urine Specific [place] (test code = 5811-5) 1.020 1.010-1.02 5 [facility] CampusUrine pH measurement by automated test hifjf7571-19-04 06:00:00* Test Item Value Reference Range Interpretation Comments Urine pH (test code = 02184-7) 7.5 5-7 [facility] CampusUrine leukocyte esterase detection by ysjooujf6672-30-57 06:00:00* Test Item Value Reference Range Interpretation Comments Urine Leukocyte Esterase (test code = 5799-2) NEGATIVE NEGATIVE [facility] CampusUrine nitrite vqxtqslaa8279-66-53 06:00:00* Test Item Value Reference Range Interpretation Comments Urine Nitrite (test code = 93397-9) NEGATIVE NEGATIVE [facility] CampusUrine protein measurement by test strip (mass/volume)2019-10-05 06:00:00* Test Item Value Reference Range Interpretation Comments Urine Protein (test code = 5804-0) NEGATIVE NEGATIVE [facility] CampusUrine glucose lamyebzgi0531-02-70 06:00:00* Test Item Value Reference Range Interpretation Comments Urine Glucose (UA) (test code = 2349-9) 2+ NEGATIVE [facility] CampusUrine ketones detection by automated test hdszf3129-27-24 06:00:00* Test Item Value Reference Range Interpretation Comments Urine Ketones (test code = 20074-2) TRACE NEGATIVE [facility] CampusUrine opiates screening qgoc1276-05-29 06:00:00* Test Item Value Reference Range Interpretation Comments Urine Opiates Screen (test code = 83911-4) POSITIVE NEGATIVE This test provides only a screen. Positive results should be repeated by a confi rmatory test.[facility] CampusBarbiturates screen, urine 2019-10-05 06:00:00* Test Item Value Reference Range Interpretation Comments Urine Barbiturates Screen (test code = 187318215) NEGATIVE NEGA TIVE [facility] CampusUrine phencyclidine detection by screening bgrecx6344-95-48 06:00:00* Test Item Value Reference Range Interpretation Comments Urine Phencyclidine Screen (test code = 16510-9) NEGATIVE NEGAT [place] [facility] CampusUrine amphetamines detection by screen method > 1000 ng/aJ2637-64-21 06:00:00* Test Item Value Reference Range Interpretation Comments Urine Amphetamines Screen (test code = 32038-0) NEGATIVE NEGATI VE [facility] CampusFluoroscopic procedure less than one hour mzcebokr9729-42-37 06:00:00* Test Item Value Reference Range Interpretation Comments Urine Methamphetamines Screen (test code = Urine Metha mphetamines Screen) NEGATIVE NEGATIVE [facility] CampusUrine benzodiazepines detection by screening ayakwb4109-21-45 06:00:00* Test Item Value Reference Range Interpretation Comments Urine Benzodiazepines Screen (test code = 38936-6) NEGATIVE NEG ATIVE [facility] CampusUrine cocaine measurement (mass/volume) 2019-10-05 06:00:00* Test Item Value Reference Range Interpretation Comments Urine Cocaine Screen (test code = 3398-5) NEGATIVE NEGATIVE [facility] CampusUrine cannabinoids detection by screening sazatj8933-93-16 06:00:00* Test Item Value Reference Range Interpretation Comments Urine Cannabinoids Screen (test code = 90030-5) POSITIVE NEGATI VE This test provides only a screen. Positive results should be repeated by a confi rmatory test.[facility] CampusUrine methadone screen 2019-10-05 06:00:00* Test Item Value Reference Range Interpretation Comments Urine Methadone Screen (test code = 73348-3) NEGATIVE NEGATIVE THESE RESULTS ARE FOR MEDICAL TREATMENT ONLYTHIS REPORT CONTAINS UNCONFIR MED SCREENING RESULTS*POSITIVE RESULTS WILL BE CONFIRMED BY REFERENCE LAB UPON R EQUEST CUT-OFFDRUG CLASS CONCENTRATION ng/mLAmphetamines 1000Methamphetamines 1000Cocaine Metabolite 300Opiate 300Phencyc lidine 25Cannabinoid 50Barbiturates 300Benzodiazepine 300Methadone 300[facility] BrownwoodUrine urobilinogen measurement by test strip (mass/volume)2019-10-05 06:00:00* Test Item Value Reference Range Interpretation Comments Urine Urobilinogen (test code = 79322-3) 0.2 0.2-1 [facility] CampusUrine total bilirubin measurement (mass/volume)2019-10-05 06:00:00* Test Item Value Reference Range Interpretation Comments Urine Bilirubin (test code = 1978-6) NEGATIVE NEGATIVE [facility] CampusUrine erythrocytes huurgtokl6078-83-83 06:00:00* Test Item Value Reference Range Interpretation Comments Urine Blood (test code = 48322-4) TRACE NEGATIVE [facility] CampusAutomated urine sediment leukocyte count by microscopy (number/high power field)2019-10-05 06:00:00* Test Item Value Reference Range Interpretation Comments Urine WBC (test code = 5821-4) 0-5 0-5 [facility] CampusErythrocytes detection in urine sediment by light pyvqbdhxct5329-06-53 06:00:00* Test Item Value Reference Range Interpretation Comments Urine RBC (test code = 48496-2) 0-5 0-5 [facility] CampusBacteria detection in urine sediment by light xwtzbeqeka9326-98-97 06:00:00* Test Item Value Reference Range Interpretation Comments Urine Bacteria (test code = 96654-2) RARE NONE [facility] CampusEpithelial cells detection in urine sediment by light aruzscevbo4761-63-57 06:00:00* Test Item Value Reference Range Interpretation Comments Urine Epithelial Cells (test code = 53906-2) RARE NONE [facility] CampusUrine color dwpfnmimjfdpm5569-18-90 06:00:00* Test Item Value Reference Range Interpretation Comments Urine Color (test code = 5778-6) YELLOW YELLOW [facility] CampusUrine ontknit5277-93-71 06:00:00* Test Item Value Reference Range Interpretation Comments Urine Clarity (test code = 38737-4) CLEAR CLEAR [facility] Hospitalpecific gravity of Urine by Test strip 2019-10-05 06:00:00* Test Item Value Reference Range Interpretation Comments Urine Specific [place] (test code = 5811-5) 1.020 1.010-1.02 5 [facility] CampusUrine pH measurement by automated test ywhuf7620-91-85 06:00:00* Test Item Value Reference Range Interpretation Comments Urine pH (test code = 69069-0) 7.5 5-7 [facility] CampusUrine leukocyte esterase detection by mpmnzehl3867-42-68 06:00:00* Test Item Value Reference Range Interpretation Comments Urine Leukocyte Esterase (test code = 5799-2) NEGATIVE NEGATIVE [facility] CampusUrine nitrite wblxkuxjm0458-35-04 06:00:00* Test Item Value Reference Range Interpretation Comments Urine Nitrite (test code = 52349-0) NEGATIVE NEGATIVE [facility] CampusUrine protein measurement by test strip (mass/volume)2019-10-05 06:00:00* Test Item Value Reference Range Interpretation Comments Urine Protein (test code = 5804-0) NEGATIVE NEGATIVE [facility] CampusUrine glucose kgahfhsmu8617-86-67 06:00:00* Test Item Value Reference Range Interpretation Comments Urine Glucose (UA) (test code = 2349-9) 2+ NEGATIVE [facility] CampusUrine ketones detection by automated test kegbg8983-29-29 06:00:00* Test Item Value Reference Range Interpretation Comments Urine Ketones (test code = 58451-1) TRACE NEGATIVE [facility] CampusUrine opiates screening vcha1406-08-82 06:00:00* Test Item Value Reference Range Interpretation Comments Urine Opiates Screen (test code = 57860-6) POSITIVE NEGATIVE This test provides only a screen. Positive results should be repeated by a confi rmatory test.[facility] CampusBarbit[facility]ates screen, urine 2019-10-05 06:00:00* Test Item Value Reference Range Interpretation Comments Urine Barbiturates Screen (test code = 862783623) NEGATIVE NEGA TIVE [facility] CampusUrine phencyclidine detection by screening [id number] 06:00:00* Test Item Value Reference Range Interpretation Comments Urine Phencyclidine Screen (test code = 77820-4) NEGATIVE NEGAT [place] [facility] CampusUrine amphetamines detection by screen method > 1000 [id number]/cB0831-28-66 06:00:00* Test Item Value Reference Range Interpretation Comments Urine Amphetamines Screen (test code = 32427-7) NEGATIVE NEGATI VE [facility] CampusFluoroscopic procedure less than one hour wfqcsnbm0719-43-88 06:00:00* Test Item Value Reference Range Interpretation Comments Urine Methamphetamines Screen (test code = Urine Metha mphetamines Screen) NEGATIVE NEGATIVE [facility] CampusUrine benzodiazepines detection by screening krjavi8511-11-51 06:00:00* Test Item Value Reference Range Interpretation Comments Urine Benzodiazepines Screen (test code = 10772-9) NEGATIVE NEG ATIVE [facility] CampusUrine cocaine measurement (mass/volume) 2019-10-05 06:00:00* Test Item Value Reference Range Interpretation Comments Urine Cocaine Screen (test code = 3398-5) NEGATIVE NEGATIVE [facility] CampusUrine cannabinoids detection by screening [id number] 06:00:00* Test Item Value Reference Range Interpretation Comments Urine Cannabinoids Screen (test code = 43736-7) POSITIVE NEGATI VE This test provides only a screen. Positive results should be repeated by a confi rmatory test.[facility] CampusUrine methadone screen 2019-10-05 06:00:00* Test Item Value Reference Range Interpretation Comments Urine Methadone Screen (test code = 02403-8) NEGATIVE NEGATIVE THESE RESULTS ARE FOR MEDICAL TREATMENT ONLYTHIS REPORT CONTAINS UNCONFIR MED SCREENING RESULTS*POSITIVE RESULTS WILL BE CONFIRMED BY REFERENCE LAB UPON R EQUEST CUT-OFFDRUG CLASS CONCENTRATION ng/mLAmphetamines 1000Methamphetamines 1000Cocaine Metabolite 300Opiate 300Phencyc lidine 25Cannabinoid 50Barbiturates 300Benzodiazepine 300Methadone 300[facility]wood[facility] urobilinogen measurement by test strip (mass/volume)2019-10-05 06:00:00* Test Item Value Reference Range Interpretation Comments Urine Urobilinogen (test code = 46374-6) 0.2 0.2-1 [facility] CampusUrine total bilirubin measurement (mass/volume)2019-10-05 06:00:00* Test Item Value Reference Range Interpretation Comments Urine Bilirubin (test code = 1978-6) NEGATIVE NEGATIVE [facility] CampusUrine erythrocytes pxivjkudh5134-50-70 06:00:00* Test Item Value Reference Range Interpretation Comments Urine Blood (test code = 36198-5) TRACE NEGATIVE [facility] CampusAutomated urine sediment leukocyte count by microscopy (number/high power field)2019-10-05 06:00:00* Test Item Value Reference Range Interpretation Comments Urine WBC (test code = 5821-4) 0-5 0-5 [facility] CampusErythrocytes detection in urine sediment by light [id number] 06:00:00* Test Item Value Reference Range Interpretation Comments Urine RBC (test code = 70565-7) 0-5 0-5 [facility] CampusBacteria detection in urine sediment by light hogkwglhwq0772-84-75 06:00:00* Test Item Value Reference Range Interpretation Comments Urine Bacteria (test code = 90079-9) RARE NONE [facility] CampusEpithelial cells detection in urine sediment by light giltudnjny7693-96-23 06:00:00* Test Item Value Reference Range Interpretation Comments Urine Epithelial Cells (test code = 28829-9) RARE NONE [facility] CampusUrine color xfpqklhbvceaj0977-62-83 06:00:00* Test Item Value Reference Range Interpretation Comments Urine Color (test code = 5778-6) YELLOW YELLOW [facility] CampusUrine qzpphvo6353-06-33 06:00:00* Test Item Value Reference Range Interpretation Comments Urine Clarity (test code = 72698-0) CLEAR CLEAR [facility]pecific [facility] of Urine by Test strip 2019-10-05 06:00:00* Test Item Value Reference Range Interpretation Comments Urine Specific [place] (test code = 5811-5) 1.020 1.010-1.02 5 [facility] CampusUrine pH measurement by automated test dwnrt5614-39-01 06:00:00* Test Item Value Reference Range Interpretation Comments Urine pH (test code = 37927-4) 7.5 5-7 [facility] CampusUrine leukocyte esterase detection by qnojjhkh8780-32-63 06:00:00* Test Item Value Reference Range Interpretation Comments Urine Leukocyte Esterase (test code = 5799-2) NEGATIVE NEGATIVE [facility] CampusUrine nitrite ydglvdhrq0904-79-02 06:00:00* Test Item Value Reference Range Interpretation Comments Urine Nitrite (test code = 71899-3) NEGATIVE NEGATIVE [facility] CampusUrine protein measurement by test strip (mass/volume)2019-10-05 06:00:00* Test Item Value Reference Range Interpretation Comments Urine Protein (test code = 5804-0) NEGATIVE NEGATIVE [facility] CampusUrine glucose mvbnaztwt1296-94-01 06:00:00* Test Item Value Reference Range Interpretation Comments Urine Glucose (UA) (test code = 2349-9) 2+ NEGATIVE [facility] CampusUrine ketones detection by automated test [id number] 06:00:00* Test Item Value Reference Range Interpretation Comments Urine Ketones (test code = 97857-4) TRACE NEGATIVE [facility] CampusUrine opiates screening onea2810-22-45 06:00:00* Test Item Value Reference Range Interpretation Comments Urine Opiates Screen (test code = 86409-3) POSITIVE NEGATIVE This test provides only a screen. Positive results should be repeated by a confi rmatory test.[facility] CampusBarbiturates screen, urine 2019-10-05 06:00:00* Test Item Value Reference Range Interpretation Comments Urine Barbiturates Screen (test code = 950565356) NEGATIVE NEGA TIVE [facility] CampusUrine phencyclidine detection by screening iiasbq6598-85-49 06:00:00* Test Item Value Reference Range Interpretation Comments Urine Phencyclidine Screen (test code = 47241-3) NEGATIVE NEGAT [place] [facility] CampusUrine amphetamines detection by screen method > 1000 ng/iA8273-61-31 06:00:00* Test Item Value Reference Range Interpretation Comments Urine Amphetamines Screen (test code = 30055-2) NEGATIVE NEGATI VE [facility] CampusFluoroscopic procedure less than one hour urjmnklr7431-09-32 06:00:00* Test Item Value Reference Range Interpretation Comments Urine Methamphetamines Screen (test code = Urine Metha mphetamines Screen) NEGATIVE NEGATIVE [facility] CampusUrine benzodiazepines detection by screening hqctrz8313-22-83 06:00:00* Test Item Value Reference Range Interpretation Comments Urine Benzodiazepines Screen (test code = 10590-1) NEGATIVE NEG ATIVE [facility] CampusUrine cocaine measurement (mass/volume) 2019-10-05 06:00:00* Test Item Value Reference Range Interpretation Comments Urine Cocaine Screen (test code = 3398-5) NEGATIVE NEGATIVE [facility] CampusUrine cannabinoids detection by screening sffcfo5315-45-53 06:00:00* Test Item Value Reference Range Interpretation Comments Urine Cannabinoids Screen (test code = 54856-8) POSITIVE NEGATI VE This test provides only a screen. Positive results should be repeated by a confi rmatory test.[facility] CampusUrine methadone screen 2019-10-05 06:00:00* Test Item Value Reference Range Interpretation Comments Urine Methadone Screen (test code = 49717-7) NEGATIVE NEGATIVE THESE RESULTS ARE FOR MEDICAL TREATMENT ONLYTHIS REPORT CONTAINS UNCONFIR MED SCREENING RESULTS*POSITIVE RESULTS WILL BE CONFIRMED BY REFERENCE LAB UPON R EQUEST CUT-OFFDRUG CLASS CONCENTRATION ng/mLAmphetamines 1000Methamphetamines 1000Cocaine Metabolite 300Opiate 300Phencyc lidine 25Cannabinoid 50Barbiturates 300Benzodiazepine 300Methadone 300[facility]woodUrine urobilinogen measurement by test strip (mass/volume)2019-10-05 06:00:00* Test Item Value Reference Range Interpretation Comments Urine Urobilinogen (test code = 38230-7) 0.2 0.2-1 [facility] CampusUrine total bilirubin measurement (mass/volume)2019-10-05 06:00:00* Test Item Value Reference Range Interpretation Comments Urine Bilirubin (test code = 1978-6) NEGATIVE NEGATIVE [facility] CampusUrine erythrocytes nsnmkrtca7590-81-83 06:00:00* Test Item Value Reference Range Interpretation Comments Urine Blood (test code = 12058-2) TRACE NEGATIVE [facility] CampusAutomated urine sediment leukocyte count by microscopy (number/high power field)2019-10-05 06:00:00* Test Item Value Reference Range Interpretation Comments Urine WBC (test code = 5821-4) 0-5 0-5 [facility] CampusErythrocytes detection in urine sediment by light [id number] 06:00:00* Test Item Value Reference Range Interpretation Comments Urine RBC (test code = 82826-1) 0-5 0-5 [facility] CampusBacteria detection in urine sediment by light zowmzialdg7976-08-96 06:00:00* Test Item Value Reference Range Interpretation Comments Urine Bacteria (test code = 49503-2) RARE NONE [facility] CampusEpithelial cells detection in urine sediment by light pneubfznso3042-86-58 06:00:00* Test Item Value Reference Range Interpretation Comments Urine Epithelial Cells (test code = 68249-6) RARE NONE [facility] CampusUrine color khoerczkoppqx3308-92-45 06:00:00* Test Item Value Reference Range Interpretation Comments Urine Color (test code = 5778-6) YELLOW YELLOW [facility] CampusUrine qemjsqa7894-40-07 06:00:00* Test Item Value Reference Range Interpretation Comments Urine Clarity (test code = 46553-6) CLEAR CLEAR [facility] Hospitalpecific gravity of Urine by Test strip 2019-10-05 06:00:00* Test Item Value Reference Range Interpretation Comments Urine Specific [place] (test code = 5811-5) 1.020 1.010-1.02 5 [facility] CampusUrine pH measurement by automated test eyvgc8347-21-00 06:00:00* Test Item Value Reference Range Interpretation Comments Urine pH (test code = 26244-1) 7.5 5-7 [facility] CampusUrine leukocyte esterase detection by rjlumbmn2318-80-05 06:00:00* Test Item Value Reference Range Interpretation Comments Urine Leukocyte Esterase (test code = 5799-2) NEGATIVE NEGATIVE [facility] CampusUrine nitrite owkmthmon0226-91-37 06:00:00* Test Item Value Reference Range Interpretation Comments Urine Nitrite (test code = 29755-8) NEGATIVE NEGATIVE [facility] CampusUrine protein measurement by test strip (mass/volume)2019-10-05 06:00:00* Test Item Value Reference Range Interpretation Comments Urine Protein (test code = 5804-0) NEGATIVE NEGATIVE [facility] CampusUrine glucose dpntrxcmt8799-93-61 06:00:00* Test Item Value Reference Range Interpretation Comments Urine Glucose (UA) (test code = 2349-9) 2+ NEGATIVE [facility] CampusUrine ketones detection by automated test nmzki7653-42-32 06:00:00* Test Item Value Reference Range Interpretation Comments Urine Ketones (test code = 08430-8) TRACE NEGATIVE [facility] CampusUrine opiates screening zczy4466-76-00 06:00:00* Test Item Value Reference Range Interpretation Comments Urine Opiates Screen (test code = 55064-5) POSITIVE NEGATIVE This test provides only a screen. Positive results should be repeated by a confi rmatory test.[facility] CampusBarbiturates screen, urine 2019-10-05 06:00:00* Test Item Value Reference Range Interpretation Comments Urine Barbiturates Screen (test code = 282527264) NEGATIVE NEGA TIVE [facility] CampusUrine phencyclidine detection by screening rrvbib6772-80-82 06:00:00* Test Item Value Reference Range Interpretation Comments Urine Phencyclidine Screen (test code = 45851-9) NEGATIVE NEGAT [place] [facility] CampusUrine amphetamines detection by screen method > 1000 ng/dY8774-01-89 06:00:00* Test Item Value Reference Range Interpretation Comments Urine Amphetamines Screen (test code = 53632-3) NEGATIVE NEGATI VE [facility] CampusFluoroscopic procedure less than one hour hrkasank9225-34-84 06:00:00* Test Item Value Reference Range Interpretation Comments Urine Methamphetamines Screen (test code = Urine Metha mphetamines Screen) NEGATIVE NEGATIVE [facility] CampusUrine benzodiazepines detection by screening cgmnop1668-42-19 06:00:00* Test Item Value Reference Range Interpretation Comments Urine Benzodiazepines Screen (test code = 33982-5) NEGATIVE NEG ATIVE [facility] CampusUrine cocaine measurement (mass/volume) 2019-10-05 06:00:00* Test Item Value Reference Range Interpretation Comments Urine Cocaine Screen (test code = 3398-5) NEGATIVE NEGATIVE [facility] CampusUrine cannabinoids detection by screening trocqp2688-30-16 06:00:00* Test Item Value Reference Range Interpretation Comments Urine Cannabinoids Screen (test code = 45861-5) POSITIVE NEGATI VE This test provides only a screen. Positive results should be repeated by a confi rmatory test.[facility] CampusUrine methadone screen 2019-10-05 06:00:00* Test Item Value Reference Range Interpretation Comments Urine Methadone Screen (test code = 33682-6) NEGATIVE NEGATIVE THESE RESULTS ARE FOR MEDICAL TREATMENT ONLYTHIS REPORT CONTAINS UNCONFIR MED SCREENING RESULTS*POSITIVE RESULTS WILL BE CONFIRMED BY REFERENCE LAB UPON R EQUEST CUT-OFFDRUG CLASS CONCENTRATION ng/mLAmphetamines 1000Methamphetamines 1000Cocaine Metabolite 300Opiate 300Phencyc lidine 25Cannabinoid 50Barbiturates 300Benzodiazepine 300Methadone 300[facility] CampusUrine urobilinogen measurement by test strip (mass/volume)2019-10-05 06:00:00* Test Item Value Reference Range Interpretation Comments Urine Urobilinogen (test code = 34422-9) 0.2 0.2-1 [facility] CampusUrine total bilirubin measurement (mass/volume)2019-10-05 06:00:00* Test Item Value Reference Range Interpretation Comments Urine Bilirubin (test code = 1978-6) NEGATIVE NEGATIVE [facility] CampusUrine erythrocytes otgwfnthy5275-28-40 06:00:00* Test Item Value Reference Range Interpretation Comments Urine Blood (test code = 51175-4) TRACE NEGATIVE [facility] CampusAutomated urine sediment leukocyte count by microscopy (number/high power field)2019-10-05 06:00:00* Test Item Value Reference Range Interpretation Comments Urine WBC (test code = 5821-4) 0-5 0-5 [facility] CampusErythrocytes detection in urine sediment by light zzizyhdodo6630-40-85 06:00:00* Test Item Value Reference Range Interpretation Comments Urine RBC (test code = 93354-8) 0-5 0-5 [facility] CampusBacteria detection in urine sediment by light gzxrwxkrxb0070-87-07 06:00:00* Test Item Value Reference Range Interpretation Comments Urine Bacteria (test code = 06202-6) RARE NONE [facility] CampusEpithelial cells detection in urine sediment by light oryxroeopq0377-69-01 06:00:00* Test Item Value Reference Range Interpretation Comments Urine Epithelial Cells (test code = 68453-2) RARE NONE [facility] CampusProthrombin time (PT) in platelet poor plasma by coagulation yymkq6221-61-91 05:08:00* Test Item Value Reference Range Interpretation Comments Prothrombin Time (test code = 5902-2) 13.4 11.9-14.5 [facility] CampusINR in Platelet poor plasma by Coagulation qhwrm1845-17-24 05:08:00* Test Item Value Reference Range Interpretation Comments Prothromb Time International Ratio (test code = 6301-6) 0.96 Oral Anticoagulant Therapy INR Values:1. Low Intensity Therapy 1.5 - 2.02 . Moderate Intensity Therapy 2.0 - 3.03. High Intensity Therapy(1) 2.5 - 3. 54. High Intensity Therapy(2) 3.0 - 4.05. Panic Value INR > 5.0 [facility] CampusProthrombin time (PT) in platelet poor plasma by coagulation ncrot2879-85-79 05:08:00* Test Item Value Reference Range Interpretation Comments Prothrombin Time (test code = 5902-2) 13.4 11.9-14.5 [facility] CampusINR in Platelet poor plasma by Coagulation cyjxw6687-33-68 05:08:00* Test Item Value Reference Range Interpretation Comments Prothromb Time International Ratio (test code = 6301-6) 0.96 Oral Anticoagulant Therapy INR Values:1. Low Intensity Therapy 1.5 - 2.02 . Moderate Intensity Therapy 2.0 - 3.03. High Intensity Therapy(1) 2.5 - 3. 54. High Intensity Therapy(2) 3.0 - 4.05. Panic Value INR > 5.0 [facility] CampusProthrombin time (PT) in platelet poor plasma by coagulation ucryn5158-90-31 05:08:00* Test Item Value Reference Range Interpretation Comments Prothrombin Time (test code = 5902-2) 13.4 11.9-14.5 [facility] CampusINR in Platelet poor plasma by Coagulation wfvma0456-74-79 05:08:00* Test Item Value Reference Range Interpretation Comments Prothromb Time International Ratio (test code = 6301-6) 0.96 Oral Anticoagulant Therapy INR Values:1. Low Intensity Therapy 1.5 - 2.02 . Moderate Intensity Therapy 2.0 - 3.03. High Intensity Therapy(1) 2.5 - 3. 54. High Intensity Therapy(2) 3.0 - 4.05. Panic Value INR > 5.0 [facility] CampusProthrombin time (PT) in platelet poor plasma by coagulation jriep2283-29-59 05:08:00* Test Item Value Reference Range Interpretation Comments Prothrombin Time (test code = 5902-2) 13.4 11.9-14.5 [facility] CampusINR in Platelet poor plasma by Coagulation necse3741-91-50 05:08:00* Test Item Value Reference Range Interpretation Comments Prothromb Time International Ratio (test code = 6301-6) 0.96 Oral Anticoagulant Therapy INR Values:1. Low Intensity Therapy 1.5 - 2.02 . Moderate Intensity Therapy 2.0 - 3.03. High Intensity Therapy(1) 2.5 - 3. 54. High Intensity Therapy(2) 3.0 - 4.05. Panic Value INR > 5.0 [facility] CampusProthrombin time (PT) in platelet poor plasma by coagulation aocsu2582-28-84 05:08:00* Test Item Value Reference Range Interpretation Comments Prothrombin Time (test code = 5902-2) 13.4 11.9-14.5 [facility] CampusINR in Platelet poor plasma by Coagulation epzfa2112-47-15 05:08:00* Test Item Value Reference Range Interpretation Comments Prothromb Time International Ratio (test code = 6301-6) 0.96 Oral Anticoagulant Therapy INR Values:1. Low Intensity Therapy 1.5 - 2.02 . Moderate Intensity Therapy 2.0 - 3.03. High Intensity Therapy(1) 2.5 - 3. 54. High Intensity Therapy(2) 3.0 - 4.05. Panic Value INR > 5.0 [facility] CampusCT ABDOMEN/PELVIS [id number] 12:03:00 [facility] [address] [place] [address] Patient Name: BREE LINDSAY MR #: [id number] : 1975 Age/Sex: 43/M Req #: [id number] Adm Physician: ISACC JAVED MD Ordered by: LU SADLER DO Rep ort #: [id number] Location: MED/SURG Room/B ed: 115-1 Procedure: [id number] CT/CT ABDOMEN/ PELVIS W Exam Date: 10/04/19 [...] [facility] CampusFluoroscopic procedure less than one hour [id number] 06:25:00* Test Item Value Reference Range Interpretation Comments Aspartate Amino Transf (AST/SGOT) (test code = Aspartate Amino Transf (AST/SGOT)) 20 5-34 [facility] Hospitalerum or plasma alanine aminotransferase measurement (enzymatic activity/volume)2019-10-04 06:25:00* Test Item Value Reference Range Interpretation Comments Alanine Aminotransferase (ALT/SGPT) (test code = 1742-6) 15 0-55 [facility] Hospitalerum or plasma protein measurement (mass/volume)2019-10-04 06:25:00* Test Item Value Reference Range Interpretation Comments Total Protein (test code = 2885-2) 7.2 6.5-8.1 [facility] Hospitalerum or plasma albumin measurement (mass/volume)2019-10-04 06:25:00* Test Item Value Reference Range Interpretation Comments Albumin (test code = 1751-7) 3.9 3.5-5.0 [facility] CampusPlasma globulin measurement (mass/volume) 2019-10-04 06:25:00* Test Item Value Reference Range Interpretation Comments Globulin (test code = 88684-6) 3.3 2.3-3.5 [facility] Hospitalerum or plasma albumin/globulin mass kicie3178-74-55 06:25:00* Test Item Value Reference Range Interpretation Comments Albumin/Globulin Ratio (test code = 1759-0) 1.2 0.8-2.0 [facility] Hospitalerum or plasma alkaline phosphatase measurement (enzymatic activity/volume)2019-10-04 06:25:00* Test Item Value Reference Range Interpretation Comments Alkaline Phosphatase (test code = 6768-6) 90 40-150 [facility] Hospitalerum or plasma total bilirubin measurement (mass/volume)2019-10-04 06:25:00* Test Item Value Reference Range Interpretation Comments Total Bilirubin (test code = 1975-2) 0.4 0.2-1.2 [facility] CampusFluoroscopic procedure less than one hour spjhotuj3812-74-99 06:25:00* Test Item Value Reference Range Interpretation Comments Aspartate Amino Transf (AST/SGOT) (test code = Aspartate Amino Transf (AST/SGOT)) 20 5-34 [facility] Hospitaler[facility] or plasma alanine aminotransferase measurement (enzymatic activity/volume)2019-10-04 06:25:00* Test Item Value Reference Range Interpretation Comments Alanine Aminotransferase (ALT/SGPT) (test code = 1742-6) 15 0-55 [facility] Hospitalerum or plasma protein measurement (mass/volume)2019-10-04 06:25:00* Test Item Value Reference Range Interpretation Comments Total Protein (test code = 2885-2) 7.2 6.5-8.1 [facility] Hospitalerum or plasma albumin measurement (mass/volume)2019-10-04 06:25:00* Test Item Value Reference Range Interpretation Comments Albumin (test code = 1751-7) 3.9 3.5-5.0 [facility] CampusPlasma globulin measurement (mass/volume) 2019-10-04 06:25:00* Test Item Value Reference Range Interpretation Comments Globulin (test code = 51499-4) 3.3 2.3-3.5 [facility] Hospitalerum or plasma albumin/globulin mass [id number] 06:25:00* Test Item Value Reference Range Interpretation Comments Albumin/Globulin Ratio (test code = 1759-0) 1.2 0.8-2.0 [facility] Hospitalerum or plasma alkaline phosphatase measurement (enzymatic activity/volume)2019-10-04 06:25:00* Test Item Value Reference Range Interpretation Comments Alkaline Phosphatase (test code = 6768-6) 90 40-150 [facility] Hospitalerum or plasma total bilirubin measurement (mass/volume)2019-10-04 06:25:00* Test Item Value Reference Range Interpretation Comments Total Bilirubin (test code = 1975-2) 0.4 0.2-1.2 [facility] CampusFluoroscopic procedure less than one hour cplpwycd1114-04-21 06:25:00* Test Item Value Reference Range Interpretation Comments Aspartate Amino Transf (AST/SGOT) (test code = Aspartate Amino Transf (AST/SGOT)) 20 5-34 [facility] alanine aminotransferase measurement (enzymatic activity/volume)2019-10-04 06:25:00* Test Item Value Reference Range Interpretation Comments Alanine Aminotransferase (ALT/SGPT) (test code = 1742-6) 15 0-55 [facility] protein measurement (mass/volume)2019-10-04 06:25:00* Test Item Value Reference Range Interpretation Comments Total Protein (test code = 2885-2) 7.2 6.5-8.1 [facility] plasma albumin measurement (mass/volume)2019-10-04 06:25:00* Test Item Value Reference Range Interpretation Comments Albumin (test code = 1751-7) 3.9 3.5-5.0 [facility]Plasma globulin measurement (mass/volume) 2019-10-04 06:25:00* Test Item Value Reference Range Interpretation Comments Globulin (test code = 01936-0) 3.3 2.3-3.5 [facility] albumin/globulin mass xvtgm9751-69-38 06:25:00* Test Item Value Reference Range Interpretation Comments Albumin/Globulin Ratio (test code = 1759-0) 1.2 0.8-2.0 [facility] alkaline phosphatase measurement (enzymatic activity/volume)2019-10-04 06:25:00* Test Item Value Reference Range Interpretation Comments Alkaline Phosphatase (test code = 6768-6) 90 40-150 [facility] total bilirubin measurement (mass/volume)2019-10-04 06:25:00* Test Item Value Reference Range Interpretation Comments Total Bilirubin (test code = 1975-2) 0.4 0.2-1.2 [facility] CampusFluoroscopic procedure less than one hour zkdnniql1162-58-59 06:25:00* Test Item Value Reference Range Interpretation Comments Aspartate Amino Transf (AST/SGOT) (test code = Aspartate Amino Transf (AST/SGOT)) 20 5-34 [facility] alanine aminotransferase measurement (enzymatic activity/volume)2019-10-04 06:25:00* Test Item Value Reference Range Interpretation Comments Alanine Aminotransferase (ALT/SGPT) (test code = 1742-6) 15 0-55 [facility] protein measurement (mass/volume)2019-10-04 06:25:00* Test Item Value Reference Range Interpretation Comments Total Protein (test code = 2885-2) 7.2 6.5-8.1 [facility] albumin measurement (mass/volume)2019-10-04 06:25:00* Test Item Value Reference Range Interpretation Comments Albumin (test code = 1751-7) 3.9 3.5-5.0 [facility] CampusPlasma globulin measurement (mass/volume) 2019-10-04 06:25:00* Test Item Value Reference Range Interpretation Comments Globulin (test code = 85844-2) 3.3 2.3-3.5 [facility] albumin/globulin mass atohf8732-87-19 06:25:00* Test Item Value Reference Range Interpretation Comments Albumin/Globulin Ratio (test code = 1759-0) 1.2 0.8-2.0 [facility] alkaline phosphatase measurement (enzymatic activity/volume)2019-10-04 06:25:00* Test Item Value Reference Range Interpretation Comments Alkaline Phosphatase (test code = 6768-6) 90 40-150 [facility] total bilirubin measurement (mass/volume)2019-10-04 06:25:00* Test Item Value Reference Range Interpretation Comments Total Bilirubin (test code = 1975-2) 0.4 0.2-1.2 [facility] CampusFluoroscopic procedure less than one hour ggsewmty7470-49-19 06:25:00* Test Item Value Reference Range Interpretation Comments Aspartate Amino Transf (AST/SGOT) (test code = Aspartate Amino Transf (AST/SGOT)) 20 5-34 [facility] alanine aminotransferase measurement (enzymatic activity/volume)2019-10-04 06:25:00* Test Item Value Reference Range Interpretation Comments Alanine Aminotransferase (ALT/SGPT) (test code = 1742-6) 15 0-55 [facility] protein measurement (mass/volume)2019-10-04 06:25:00* Test Item Value Reference Range Interpretation Comments Total Protein (test code = 2885-2) 7.2 6.5-8.1 [facility] albumin measurement (mass/volume)2019-10-04 06:25:00* Test Item Value Reference Range Interpretation Comments Albumin (test code = 1751-7) 3.9 3.5-5.0 [facility] CampusPlasma globulin measurement (mass/volume) 2019-10-04 06:25:00* Test Item Value Reference Range Interpretation Comments Globulin (test code = 64056-3) 3.3 2.3-3.5 [facility] albumin/globulin mass apmch0927-14-40 06:25:00* Test Item Value Reference Range Interpretation Comments Albumin/Globulin Ratio (test code = 1759-0) 1.2 0.8-2.0 [facility] alkaline phosphatase measurement (enzymatic activity/volume)2019-10-04 06:25:00* Test Item Value Reference Range Interpretation Comments Alkaline Phosphatase (test code = 6768-6) 90 40-150 [facility] CampusFluoroscopic procedure less than one hour vylyllkr2958-98-26 01:50:00* Test Item Value Reference Range Interpretation [...] under 564(g) of the ACT.Testing performed by [facility] [place], [place] [address]ULLThe [facility] CampusFluoroscopic procedure less than one hour duration 2019-10-04 [...] under 564(g) of the ACT.Testing performed by [facility] [place] [id number] [place], [place] [address]CT ABDOMEN/PELVIS C1611-26-29 12:40:00 [facility] [address] [place] [address] Patient Name: BREE LINDSAY MR #: [id number] : 1975 Age/Sex: 43/M Req #: [id number] Adm Physician: Ordered by: STACIE FALLON, JEANNIE FALLON Report #: [id number] Location: [facility]/Bed: Procedure: [id number] CT/CT ABD OMEN/PELVIS W Exam Date: 09/30/19 [...] MAGGIE BRYAN MD on 09/30/191246 Transcribed By: [facility] RAN on 09/30/191246 COPY TO: JEANNIE QUINONES Prothrombin time (PT) in platelet poor plasma by coagulation ldvhh9747-30-84 09:55:00* Test Item Value Reference Range Interpretation Comments Prothrombin Time (test code = 5902-2) 13.3 11.9-14.5 [facility] CampusINR in Platelet poor plasma by Coagulation szgck7851-56-57 09:55:00* Test Item Value Reference Range Interpretation [...] (aPTT) in platelet poor plasma by coagulation puxlj8963-57-87 09:55:00* Test Item Value Reference Range Interpretation Comments Activated Partial Thromboplast Time (test code = 80391-9) 26.1 23.8-35.5 [facility] sodium measurement (moles/volume)2019-09-30 09:55:00* Test Item Value Reference Range Interpretation Comments Sodium Level (test code = 2951-2) 142 136-145 [facility]er[facility] plasma potassium measurement (moles/volume)2019-09-30 09:55:00* Test Item Value Reference Range Interpretation Comments Potassium Level (test code = 2823-3) 3.9 3.5-5.1 [facility]er[facility] plasma chloride measurement (moles/volume)2019-09-30 09:55:00* Test Item Value Reference Range Interpretation Comments Chloride Level (test code = 2075-0) 103 98-107 [facility]er[facility] plasma carbon dioxide, total measurement (moles/volume)2019-09-30 09:55:00* Test Item Value Reference Range Interpretation Comments Carbon Dioxide Level (test code = 2028-9) 30 22-29 [facility]er[facility] plasma anion dlz3495-97-21 09:55:00* Test Item Value Reference Range Interpretation Comments Anion Gap (test code = 66198-6) 12.9 8-16 [facility]er[facility] urea nitrogen measurement (mass/volume)2019-09-30 09:55:00* Test Item Value Reference Range Interpretation Comments Blood Urea Nitrogen (test code = 3094-0) 13 7-26 [facility]er[facility] plasma creatinine measurement (mass/volume)2019-09-30 09:55:00* Test Item Value Reference Range Interpretation Comments Creatinine (test code = 2160-0) 1.18 0.72-1.25 [facility]er[facility] plasma urea nitrogen/creatinine mass ppuqf0388-57-54 09:55:00* Test Item Value Reference Range Interpretation Comments BUN/Creatinine Ratio (test code = 3097-3) 11 6-25 [facility] CampusEstimated glomerular filtration rate (GFR) ledglxpbdpcsj8262-24-43 09:55:00* Test Item Value Reference Range Interpretation Comments Estimat Glomerular Filtration Rate (test code = 882767070) > 60 >60 Ranges were taken from the National Kidney Disease Education Program and the [facility] literature.Reference ranges:60 or greater: Pxzway06-02 ( for 3 consecutive months): Chronic kidney disease 15 or less: Kidney failureThe Hospitals of Providence Horizon City CampusGlucose oyrtpblradp6651-22-32 09:55:00* Test Item Value Reference Range Interpretation Comments Glucose Level (test code = RKQ3385) 328 74-118 [facility]er[facility] plasma calcium measurement (mass/volume)2019-09-30 09:55:00* Test Item Value Reference Range Interpretation Comments Calcium Level (test code = 92432-4) 8.8 8.4-10.2 [facility] CampusFluoroscopic procedure less than one hour wycmmtdd1285-08-33 09:55:00* Test Item Value Reference Range Interpretation Comments Lactic Acid Level (test code = Lactic Acid Level) 1.0 0.5- 2.0 [facility] Hospitaler[facility] plasma total bilirubin measurement (mass/volume)2019-09-30 09:55:00* Test Item Value Reference Range Interpretation Comments Total Bilirubin (test code = 1975-2) 0.5 0.2-1.2 [facility] CampusFluoroscopic procedure less than one hour wniagihb9705-11-90 09:55:00* Test Item Value Reference Range Interpretation Comments Aspartate Amino Transf (AST/SGOT) (test code = Aspartate Amino Transf (AST/SGOT)) 16 5-34 [facility]er[facility] plasma alanine aminotransferase measurement (enzymatic activity/volume)2019-09-30 09:55:00* Test Item Value Reference Range Interpretation Comments Alanine Aminotransferase (ALT/SGPT) (test code = 1742-6) 15 0-55 [facility]er[facility] or plasma protein measurement (mass/volume)2019-09-30 09:55:00* Test Item Value Reference Range Interpretation Comments Total Protein (test code = 2885-2) 6.4 6.5-8.1 [facility]er[facility] plasma albumin measurement (mass/volume)2019-09-30 09:55:00* Test Item Value Reference Range Interpretation Comments Albumin (test code = 1751-7) 3.4 3.5-5.0 [facility] CampusPlasma globulin measurement (mass/volume) 2019-09-30 09:55:00* Test Item Value Reference Range Interpretation Comments Globulin (test code = 36469-9) 3.0 2.3-3.5 [facility] Hospitaler[facility] or plasma albumin/globulin mass cbwwn1172-75-97 09:55:00* Test Item Value Reference Range Interpretation Comments Albumin/Globulin Ratio (test code = 1759-0) 1.1 0.8-2.0 [facility] Hospitaler[facility] or plasma alkaline phosphatase measurement (enzymatic activity/volume)2019-09-30 09:55:00* Test Item Value Reference Range Interpretation Comments Alkaline Phosphatase (test code = 6768-6) 92 40-150 [facility]er[facility] or plasma creatine kinase measurement (enzymatic activity/volume)2019-09-30 09:55:00* Test Item Value Reference Range Interpretation Comments Creatine Kinase (test code = 2157-6) 365 30-200 [facility] Hospitaler[facility] or plasma creatine kinase MB measurement (mass/volume)2019-09-30 09:55:00* Test Item Value Reference Range Interpretation Comments Creatine Kinase MB (test code = 89530-2) 1.50 0-5.0 [facility] CampusTroponin I measurement by highly sensitive enzyme qptensbyeky4041-84-01 09:55:00* Test Item Value Reference Range Interpretation Comments Troponin I (test code = 73338-6) 0.001 0-0.300 [facility]er[facility] or plasma amylase measurement (enzymatic activity/volume)2019-09-30 09:55:00* Test Item Value Reference Range Interpretation Comments Amylase Level (test code = 1798-8) 49 25-125 [facility]er[facility] or plasma lipase measurement (enzymatic activity/volume)2019-09-30 09:55:00* Test Item Value Reference Range Interpretation Comments Lipase (test code = 3040-3) < 4 8-78 [facility] CampusActivated partial thromboplastin time (aPTT) in platelet poor plasma by coagulation jrlbw2801-70-58 09:55:00* Test Item Value Reference Range Interpretation Comments Activated Partial Thromboplast Time (test code = 42731-5) 26.1 23.8-35.5 [facility] CampusFluoroscopic procedure less than one hour luyzjyps5705-20-82 09:55:00* Test Item Value Reference Range Interpretation Comments Lactic Acid Level (test code = Lactic Acid Level) 1.0 0.5- 2.0 [facility] Hospitalerum or plasma creatine kinase measurement (enzymatic activity/volume)2019-09-30 09:55:00* Test Item Value Reference Range Interpretation Comments Creatine Kinase (test code = 2157-6) 365 30-200 [facility] Hospitaler[facility] or plasma creatine kinase MB measurement (mass/volume)2019-09-30 09:55:00* Test Item Value Reference Range Interpretation Comments Creatine Kinase MB (test code = 20390-7) 1.50 0-5.0 [facility] CampusTroponin I measurement by highly sensitive enzyme vfchfzfbuhc1350-37-14 09:55:00* Test Item Value Reference Range Interpretation Comments Troponin I (test code = 07144-7) 0.001 0-0.300 [facility]er[facility] or plasma amylase measurement (enzymatic activity/volume)2019-09-30 09:55:00* Test Item Value Reference Range Interpretation Comments Amylase Level (test code = 1798-8) 49 25-125 [facility]er[facility] or plasma lipase measurement (enzymatic activity/volume)2019-09-30 09:55:00* Test Item Value Reference Range Interpretation Comments Lipase (test code = 3040-3) < 4 8-78 [facility] CampusActivated partial thromboplastin time (aPTT) in platelet poor plasma by coagulation pfuhq6270-85-24 09:55:00* Test Item Value Reference Range Interpretation Comments Activated Partial Thromboplast Time (test code = 98741-9) 26.1 23.8-35.5 [facility] CampusFluoroscopic procedure less than one hour tjssxcrv2637-57-35 09:55:00* Test Item Value Reference Range Interpretation Comments Lactic Acid Level (test code = Lactic Acid Level) 1.0 0.5- 2.0 [facility]er[facility] or plasma creatine kinase measurement (enzymatic activity/volume)2019-09-30 09:55:00* Test Item Value Reference Range Interpretation Comments Creatine Kinase (test code = 2157-6) 365 30-200 [facility] Hospitaler[facility] or plasma creatine kinase MB measurement (mass/volume)2019-09-30 09:55:00* Test Item Value Reference Range Interpretation Comments Creatine Kinase MB (test code = 12960-7) 1.50 0-5.0 [facility] CampusTroponin I measurement by highly sensitive enzyme hjajbiguppq0363-52-15 09:55:00* Test Item Value Reference Range Interpretation Comments Troponin I (test code = 34018-8) 0.001 0-0.300 [facility]er[facility] or plasma amylase measurement (enzymatic activity/volume)2019-09-30 09:55:00* Test Item Value Reference Range Interpretation Comments Amylase Level (test code = 1798-8) 49 25-125 [facility] CampusActivated partial thromboplastin time (aPTT) in platelet poor plasma by coagulation jmtjh9294-89-25 09:55:00* Test Item Value Reference Range Interpretation Comments Activated Partial Thromboplast Time (test code = 13007-0) 26.1 23.8-35.5 [facility] CampusFluoroscopic procedure less than one hour oeqywcae0588-23-68 09:55:00* Test Item Value Reference Range Interpretation Comments Lactic Acid Level (test code = Lactic Acid Level) 1.0 0.5- 2.0 [facility]er[facility] or plasma creatine kinase measurement (enzymatic activity/volume)2019-09-30 09:55:00* Test Item Value Reference Range Interpretation Comments Creatine Kinase (test code = 2157-6) 365 30-200 [facility] Hospitaler[facility] or plasma creatine kinase MB measurement (mass/volume)2019-09-30 09:55:00* Test Item Value Reference Range Interpretation Comments Creatine Kinase MB (test code = 71686-7) 1.50 0-5.0 [facility] CampusTroponin I measurement by highly sensitive enzyme bhrqtkefsto1342-11-47 09:55:00* Test Item Value Reference Range Interpretation Comments Troponin I (test code = 45614-5) 0.001 0-0.300 [facility]er[facility] or plasma amylase measurement (enzymatic activity/volume)2019-09-30 09:55:00* Test Item Value Reference Range Interpretation Comments Amylase Level (test code = 1798-8) 49 25-125 [facility] CampusActivated partial thromboplastin time (aPTT) in platelet poor plasma by coagulation jpmxm3044-49-32 09:55:00* Test Item Value Reference Range Interpretation Comments Activated Partial Thromboplast Time (test code = 43720-1) 26.1 23.8-35.5 [facility] CampusFluoroscopic procedure less than one hour jyuajwkc6130-13-24 09:55:00* Test Item Value Reference Range Interpretation Comments Lactic Acid Level (test code = Lactic Acid Level) 1.0 0.5- 2.0 [facility]er[facility] or plasma creatine kinase measurement (enzymatic activity/volume)2019-09-30 09:55:00* Test Item Value Reference Range Interpretation Comments Creatine Kinase (test code = 2157-6) 365 30-200 [facility] Hospitaler[facility] or plasma creatine kinase MB measurement (mass/volume)2019-09-30 09:55:00* Test Item Value Reference Range Interpretation Comments Creatine Kinase MB (test code = 70351-7) 1.50 0-5.0 [facility] CampusTroponin I measurement by highly sensitive enzyme gajftzbavhc0688-47-58 09:55:00* Test Item Value Reference Range Interpretation Comments Troponin I (test code = 01804-4) 0.001 0-0.300 [facility]er[facility] plasma amylase measurement (enzymatic activity/volume)2019-09-30 09:55:00* Test Item Value Reference Range Interpretation Comments Amylase Level (test code = 1798-8) 49 25-125 [facility] CampusActivated partial thromboplastin time (aPTT) in platelet poor plasma by coagulation hwoqc0659-89-08 09:55:00* Test Item Value Reference Range Interpretation Comments Activated Partial Thromboplast Time (test code = 90891-9) 26.1 23.8-35.5 [facility] CampusFluoroscopic procedure less than one hour xkznamho1527-11-32 09:55:00* Test Item Value Reference Range Interpretation Comments Lactic Acid Level (test code = Lactic Acid Level) 1.0 0.5- 2.0 [facility]er[facility] or plasma creatine kinase measurement (enzymatic activity/volume)2019-09-30 09:55:00* Test Item Value Reference Range Interpretation Comments Creatine Kinase (test code = 2157-6) 365 30-200 [facility]er[facility] or plasma creatine kinase MB measurement (mass/volume)2019-09-30 09:55:00* Test Item Value Reference Range Interpretation Comments Creatine Kinase MB (test code = 74885-2) 1.50 0-5.0 [facility] CampusTroponin I measurement by highly sensitive enzyme rrdlzocjdzo6612-66-47 09:55:00* Test Item Value Reference Range Interpretation Comments Troponin I (test code = 14664-4) 0.001 0-0.300 [facility]er[facility] plasma amylase measurement (enzymatic activity/volume)2019-09-30 09:55:00* Test Item Value Reference Range Interpretation Comments Amylase Level (test code = 1798-8) 49 25-125 [facility] CampusCHEST SINGLE (PORTABLE)2019-09-30 09:23:00 [facility] [address] [address] Patient Name: BREE LINDSAY MR #: [id number] : 1975 Age/Sex: 43/M Req #: [id number] Adm Physician: Ordered by: STACIE FALLON, JEANNIE FALLON Report #: [id number] Location: ER Room/Bed: Procedure: [id number] DX/CHEST SINGLE (PORTABLE) Exam Date: 09/30/19 Exam Time: 083 5 REPORT STATUS: Signed EXAMINAT ION: CHEST SINGLE (PORTABLE) INDICATION: ERMD ORDER [id number] Y COMPARISON: Chest radiograph 07/23/2019, [...] Range Interpretation Comments Hemoglobin (test code = 41252-5) 10.4 14.0-18.0 [facility] CampusAutomated blood hematocrit (volume fraction)2019-09-30 09:10:00* Test Item Value Reference Range Interpretation Comments Hematocrit (test code = 4544-3) 32.9 38.2-49.6 [facility] CampusAutomated erythrocyte mean corpuscular egheil1749-87-23 09:10:00* Test Item Value Reference Range Interpretation [...] [facility] CampusRDW CleLa-Clq9751-14-03 09:10:00* Test Item Value Reference Range Interpretation Comments Red Cell Distribution Width (test code = 88882-1) 14.0 11.7 -14.4 [facility] CampusAutomated blood platelet count (count/volume)2019-09-30 09:10:00* Test Item Value Reference Range Interpretation Comments Platelet Count (test code = 777-3) 263 140-360 [facility] CampusAutomated blood segmented neutrophil count as percentage of total fpgpjlucwm5129-89-43 09:10:00* Test Item Value Reference Range Interpretation Comments Neutrophils (%) (Auto) (test code = 48213-9) 80.4 38.7-80.0 [facility] CampusAut[facility] blood lymphocyte count as percentage ot total fanxytekeg9245-54-82 09:10:00* Test Item Value Reference Range Interpretation Comments Lymphocytes (%) (Auto) (test code = 736-9) 11.5 18.0-39.1 [facility] CampusAutomated blood monocyte count as percentage of total wwtsfwwwzk8027-53-92 09:10:00* Test Item Value Reference Range Interpretation Comments Monocytes (%) (Auto) (test code = 5905-5) 6.3 4.4-11.3 [facility] CampusAutomated blood eosinophil count as percentage of total fpjflvlktd4625-49-87 09:10:00* Test Item Value Reference Range Interpretation Comments Eosinophils (%) (Auto) (test code = 713-8) 0.7 0.0-6.0 [facility] CampusAutomated blood basophil count as percentage of total uzgxrvznev1852-89-57 09:10:00* Test Item Value Reference Range Interpretation Comments Basophils (%) (Auto) (test code = 706-2) 0.8 0.0-1.0 [facility] CampusFluoroscopic procedure less than one hour acdngqvo2734-47-00 09:10:00* Test Item Value Reference Range Interpretation Comments IM GRANULOCYTES % (test code = IM GRANULOCYTES %) 0.3 0.0- 1.0 [facility] CampusAutomated blood neutrophil count 2019-09-30 09:10:00* Test Item Value Reference Range Interpretation Comments Neutrophils # (Auto) (test code = 751-8) 7.7 2.1-6.9 [facility] lymphocytes count (number/volume) 2019-09-30 09:10:00* Test Item Value Reference Range Interpretation Comments Lymphocytes # (Auto) (test code = 96710-6) 1.1 1.0-3.2 [facility] monocytes automated count (number/volume)2019-09-30 09:10:00* Test Item [...] City CampusFluoroscopic procedure less than one hour ukljlhby1210-26-79 09:10:00* Test Item Value Reference Range Interpretation Comments Absolute Immature Granulocyte (auto (zeenat t code = Absolute Immature Granulocyte (auto) 0.03 0-0.1 [facility] rswtfdy3174-92-29 09:10:00* Test Item Value Reference Range Interpretation Comments Blood Culture (test code = 31084496) NO GROWTH AFTER 5 DAYS, FINAL REPORT [facility] xadikqj4839-13-72 09:10:00* Test Item Value Reference Range Interpretation Comments Blood Culture (test code = 46696214) NO GROWTH AFTER 5 DAYS, FINAL REPORT [facility] xpneect8402-05-66 09:10:00* Test Item Value Reference Range Interpretation Comments Blood Culture (test code = 27858847) NO GROWTH AFTER 5 DAYS, FINAL REPORT [facility] CampusBlood djboxra3868-16-60 09:10:00* Test Item Value Reference Range Interpretation Comments Blood Culture (test code = 35126801) NO GROWTH AFTER 5 DAYS, FINAL REPORT [facility] CampusBlood rlukhqt0100-59-29 09:10:00* Test Item Value Reference Range Interpretation Comments Blood Culture (test code = 34484574) NO GROWTH AFTER 5 DAYS, FINAL REPORT [facility] CampusUrine color hpwfwfyimskkf0848-40-46 08:44:00* Test Item Value Reference Range Interpretation Comments Urine Color (test code = 5778-6) YELLOW YELLOW [facility] CampusUrine cqtdejm2970-20-88 08:44:00* Test Item Value Reference Range Interpretation Comments Urine Clarity (test code = 71456-7) CLEAR CLEAR [facility] Urine by Test strip 2019-09-30 08:44:00* Test Item Value Reference Range Interpretation Comments Urine Specific [place] (test code = 5811-5) 1.025 1.010-1.02 5 [facility] CampusUrine pH measurement by automated test qvmga1317-34-11 08:44:00* Test Item Value Reference Range Interpretation Comments Urine pH (test code = 61790-3) 7 5-7 [facility] CampusUrine leukocyte esterase detection by fzissslj1884-55-85 08:44:00* Test Item Value Reference Range Interpretation Comments Urine Leukocyte Esterase (test code = 5799-2) NEGATIVE NEGATIVE [facility] CampusUrine nitrite cjlkwlfyr8140-80-09 08:44:00* Test Item Value Reference Range Interpretation Comments Urine Nitrite (test code = 51273-5) NEGATIVE NEGATIVE [facility] CampusUrine protein measurement by test strip (mass/volume)2019-09-30 08:44:00* Test Item Value Reference Range Interpretation Comments Urine Protein (test code = 5804-0) 1+ NEGATIVE [facility] CampusUrine glucose jnsmypcra0030-24-46 08:44:00* Test Item Value Reference Range Interpretation Comments Urine Glucose (UA) (test code = 2349-9) 2+ NEGATIVE [facility] CampusUrine ketones detection by automated test tkkhn2317-53-98 08:44:00* Test Item Value Reference Range Interpretation Comments Urine Ketones (test code = 90401-9) 2+ NEGATIVE [facility] CampusUrine opiates screening dtex5664-43-75 08:44:00* Test Item Value Reference Range Interpretation Comments Urine Opiates Screen (test code = 28608-9) POSITIVE NEGATIVE This test provides only a screen. Positive results should be repeated by a confi rmatory test.[facility] CampusBarbiturates screen, urine 2019-09-30 08:44:00* Test Item Value Reference Range Interpretation Comments Urine Barbiturates Screen (test code = 713530831) NEGATIVE NEGA TIVE [facility] CampusUrine phencyclidine detection by screening kutpty6107-26-13 08:44:00* Test Item Value Reference Range Interpretation Comments Urine Phencyclidine Screen (test code = 70504-5) NEGATIVE NEGAT [place] [facility] CampusUrine amphetamines detection by screen method > 1000 ng/zU7382-73-07 08:44:00* Test Item Value Reference Range Interpretation Comments Urine Amphetamines Screen (test code = 47438-1) NEGATIVE NEGATI VE [facility] CampusFluoroscopic procedure less than one hour kjikuhny4418-01-10 08:44:00* Test Item Value Reference Range Interpretation Comments Urine Methamphetamines Screen (test code = Urine Metha mphetamines Screen) NEGATIVE NEGATIVE [facility] CampusUrine benzodiazepines detection by screening vnbhhk5841-73-77 08:44:00* Test Item Value Reference Range Interpretation Comments Urine Benzodiazepines Screen (test code = 78203-2) POSITIVE NEG ATIVE This test provides only a screen. Positive results should be repeated by a confi rmatory test.[facility] CampusUrine cocaine measurement (mass/volume)2019-09-30 08:44:00* Test Item Value Reference Range Interpretation Comments Urine Cocaine Screen (test code = 3398-5) NEGATIVE NEGATIVE [facility] CampusUrine cannabinoids detection by screening vytwcn5048-38-36 08:44:00* Test Item Value Reference Range Interpretation Comments Urine Cannabinoids Screen (test code = 50480-4) POSITIVE NEGATI VE This test provides only a screen. Positive results should be repeated by a confi rmatory test.[facility] CampusUrine methadone screen 2019-09-30 08:44:00* Test Item Value Reference Range Interpretation Comments Urine Methadone Screen (test code = 87318-7) NEGATIVE NEGATIVE THESE RESULTS ARE FOR MEDICAL TREATMENT ONLYTHIS REPORT CONTAINS UNCONFIR MED SCREENING RESULTS*POSITIVE RESULTS WILL BE CONFIRMED BY REFERENCE LAB UPON R EQUEST CUT-OFFDRUG CLASS CONCENTRATION ng/mLAmphetamines 1000Methamphetamines 1000Cocaine Metabolite 300Opiate 300Phencyc lidine 25Cannabinoid 50Barbiturates 300Benzodiazepine 300Methadone 300[facility] BrownwoodUrine urobilinogen measurement by test strip (mass/volume)2019-09-30 08:44:00* Test Item Value Reference Range Interpretation Comments Urine Urobilinogen (test code = 98737-4) 0.2 0.2-1 [facility] CampusUrine total bilirubin measurement (mass/volume)2019-09-30 08:44:00* Test Item Value Reference Range Interpretation Comments Urine Bilirubin (test code = 1978-6) NEGATIVE NEGATIVE [facility] CampusUrine erythrocytes mxlryfqno7631-19-25 08:44:00* Test Item Value Reference Range Interpretation Comments Urine Blood (test code = 98172-7) TRACE NEGATIVE [facility] CampusAutomated urine sediment leukocyte count by microscopy (number/high power field)2019-09-30 08:44:00* Test Item Value Reference Range Interpretation Comments Urine WBC (test code = 5821-4) 21-50 0-5 [facility] CampusErythrocytes detection in urine sediment by light jugupvjibb8290-73-27 08:44:00* Test Item Value Reference Range Interpretation Comments Urine RBC (test code = 11519-2) 6-10 0-5 [facility] CampusBacteria detection in urine sediment by light tefjeezqhe7181-40-46 08:44:00* Test Item Value Reference Range Interpretation Comments Urine Bacteria (test code = 89935-1) FEW NONE [facility] CampusEpithelial cells detection in urine sediment by light nprredosjh4815-85-34 08:44:00* Test Item Value Reference Range Interpretation Comments Urine Epithelial Cells (test code = 07108-1) RARE NONE [facility] CampusCaphub[facility] blood glucose measurement by glucometer (mass/volume)2019-09-24 07:23:00* Test Item Value Reference Range Interpretation Comments Bedside Glucose (test code = 75890-0) 83 70-120 Meter ID: [id number] by glucometer (mass/volume)2019-09-24 07:23:00* Test Item Value Reference Range Interpretation Comments Bedside Glucose (test code = 99280-8) 83 70-120 Meter ID: [id number] Medical Center Southillary blood glucose measurement by glucometer (mass/volume)2019-09-24 07:23:00* Test Item Value Reference Range Interpretation Comments Bedside Glucose (test code = 06839-6) 83 70-120 Meter ID: [id number] [facility]als of [facility] CampusTroponin I measurement by highly sensitive enzyme ehrihhempyj0048-02-84 09:58:00* Test Item Value Reference Range Interpretation Comments Troponin I (test code = 35168-4) 0.016 0-0.300 [facility] CampusTroponin I measurement by highly sensitive enzyme rsnauxvrysd8202-41-22 09:58:00* Test Item Value Reference Range Interpretation Comments Troponin I (test code = 17147-1) 0.016 0-0.300 [facility] CampusB[facility]at[facility] leukocytes automated count (number/volume)2019-09-23 05:42:00* Test Item Value Reference Range Interpretation Comments White Blood Count (test code = 6690-2) 8.62 4.8-10.8 [facility] erythrocytes automated count (number/volume)2019-09-23 05:42:00* Test Item Value Reference Range Interpretation Comments Red Blood Count (test code = 789-8) 3.57 4.3-5.7 [facility] hemoglobin measurement (moles/volume)2019-09-23 05:42:00* Test Item Value Reference Range Interpretation Comments Hemoglobin (test code = 46637-2) 10.3 14.0-18.0 [facility] CampusAutomated blood hematocrit (volume fraction)2019-09-23 05:42:00* Test Item Value Reference Range Interpretation Comments Hematocrit (test code = 4544-3) 32.2 38.2-49.6 [facility] CampusAutomated erythrocyte mean corpuscular raxvro3882-77-39 05:42:00* Test Item Value Reference Range Interpretation Comments Mean Corpuscular Volume (test code = 787-2) 90.2 81-99 [facility] CampusAutomated erythrocyte mean corpuscular hemoglobin (mass per erythrocyte)2019-09-23 05:42:00* Test Item Value Reference Range Interpretation Comments Mean Corpuscular Hemoglobin (test code = 785-6) 28.9 28-32 [facility] CampusAutat[facility] erythrocyte mean corpuscular hemoglobin concentration measurement (mass/volume)2019-09-23 05:42:00* Test Item Value Reference Range Interpretation Comments Mean Corpuscular Hemoglobin Concent (test code = 786-4) 32.0 31-35 [facility] CampusRDW XnwFt-Rph1890-93-26 05:42:00* Test Item Value Reference Range Interpretation Comments Red Cell Distribution Width (test code = 37791-6) 13.7 11.7 -14.4 [facility] CampusAutformerly [facility] blood platelet count (count/volume)2019-09-23 05:42:00* Test Item Value Reference Range Interpretation Comments Platelet Count (test code = 777-3) 183 140-360 [facility] CampusAutomated blood segmented neutrophil count as percentage of total ssgysgznpm5442-78-65 05:42:00* Test Item Value Reference Range Interpretation Comments Neutrophils (%) (Auto) (test code = 00821-4) 78.4 38.7-80.0 [facility] CampusAutformerly [facility] blood lymphocyte count as percentage ot total faekktztsk3892-37-36 05:42:00* Test Item Value Reference Range Interpretation Comments Lymphocytes (%) (Auto) (test code = 736-9) 13.1 18.0-39.1 [facility] CampusAutomated blood monocyte count as percentage of total lypwvtfkyd7119-30-57 05:42:00* Test Item Value Reference Range Interpretation Comments Monocytes (%) (Auto) (test code = 5905-5) 7.7 4.4-11.3 [facility] CampusAutomated blood eosinophil count as percentage of total mpxfhmcouz1262-81-50 05:42:00* Test Item Value Reference Range Interpretation Comments Eosinophils (%) (Auto) (test code = 713-8) 0.1 0.0-6.0 [facility] CampusAutomated blood basophil count as percentage of total usmqdavhwj0945-58-05 05:42:00* Test Item Value Reference Range Interpretation Comments Basophils (%) (Auto) (test code = 706-2) 0.5 0.0-1.0 [facility] CampusFluoroscopic procedure less than one hour fkvjsvbw7501-57-23 05:42:00* Test Item Value Reference Range Interpretation [...] Comments Lymphocytes # (Auto) (test code = 94339-0) 1.1 1.0-3.2 [facility] [...] [facility] CampusFluoroscopic procedure less than one hour ilezxims3673-83-45 05:42:00* Test Item Value Reference Range Interpretation Comments Absolute Immature Granulocyte (auto (zeenat t code = Absolute Immature Granulocyte (auto) 0.02 0-0.1 [facility] Hospitalerum or plasma sodium measurement (moles/volume)2019-09-23 05:42:00* Test Item Value Reference Range Interpretation Comments Sodium Level (test code = 2951-2) 138 136-145 [facility] Hospitalerum or plasma potassium measurement (moles/volume)2019-09-23 05:42:00* Test Item Value Reference Range Interpretation Comments Potassium Level (test code = 2823-3) 3.6 3.5-5.1 [facility] Hospitalerum or plasma chloride measurement (moles/volume)2019-09-23 05:42:00* Test Item Value Reference Range Interpretation Comments Chloride Level (test code = 2075-0) 101 98-107 [facility] Hospitalerum or plasma carbon dioxide, total measurement (moles/volume)2019-09-23 05:42:00* Test Item Value Reference Range Interpretation Comments Carbon Dioxide Level (test code = 2028-9) 28 22-29 [facility] Hospitalerum or plasma anion zir8226-02-65 05:42:00* Test Item Value Reference Range Interpretation Comments Anion Gap (test code = 96352-2) 12.6 8-16 [facility] Hospitalerum or plasma urea nitrogen measurement (mass/volume)2019-09-23 05:42:00* Test Item Value Reference Range Interpretation Comments Blood Urea Nitrogen (test code = 3094-0) 22 7-26 [facility] Hospitalerum or plasma creatinine measurement (mass/volume)2019-09-23 05:42:00* Test Item Value Reference Range Interpretation Comments Creatinine (test code = 2160-0) 1.16 0.72-1.25 [facility] Hospitalerum or plasma urea nitrogen/creatinine mass ndyrh8045-71-90 05:42:00* Test Item Value Reference Range Interpretation Comments BUN/Creatinine Ratio (test code = 3097-3) 19 6-25 [facility] CampusEstimated glomerular filtration rate (GFR) pxiwqsyoeepan2977-45-17 05:42:00* Test Item Value Reference Range Interpretation Comments Estimat Glomerular Filtration Rate (test code = 068898719) > 60 >60 Ranges were taken from the National Kidney Disease Education Program and the [facility] Kidney Foundation literature.Reference ranges:60 or greater: Bwcfnu35-41 ( for 3 consecutive months): Chronic kidney disease 15 or less: Kidney failureThe Hospitals of Providence [facility] CampusGlucose bcuwhbfcysn1750-52-57 05:42:00* Test Item Value Reference Range Interpretation Comments Glucose Level (test code = OJG0700) 266 74-118 [facility] Hospitalerum or plasma calcium measurement (mass/volume)2019-09-23 05:42:00* Test Item Value Reference Range Interpretation Comments Calcium Level (test code = 25638-2) 8.3 8.4-10.2 [facility] Hospitalerum or plasma total bilirubin measurement (mass/volume)2019-09-23 05:42:00* Test Item Value Reference Range Interpretation Comments Total Bilirubin (test code = 1975-2) 0.4 0.2-1.2 [facility] CampusFluoroscopic procedure less than one hour dwhatmpr5160-99-86 05:42:00* Test Item Value Reference Range Interpretation Comments Aspartate Amino Transf (AST/SGOT) (test code = Aspartate Amino Transf (AST/SGOT)) 14 5-34 [facility] Hospitalerum or plasma alanine aminotransferase measurement (enzymatic activity/volume)2019-09-23 05:42:00* Test Item Value Reference Range Interpretation Comments Alanine Aminotransferase (ALT/SGPT) (test code = 1742-6) 14 0-55 [facility] Hospitalerum or plasma protein measurement (mass/volume)2019-09-23 05:42:00* Test Item Value Reference Range Interpretation Comments Total Protein (test code = 2885-2) 6.2 6.5-8.[address] [facility] or plasma albumin measurement (mass/volume)2019-09-23 05:42:00* Test Item Value Reference Range Interpretation Comments Albumin (test code = 1751-7) 3.4 3.5-5.0 [facility] CampusPlasma globulin measurement (mass/volume) 2019-09-23 05:42:00* Test Item Value Reference Range Interpretation Comments Globulin (test code = 29948-3) 2.8 2.3-3.5 [facility] Hospitalerum or plasma albumin/globulin mass vqwhj6234-85-54 05:42:00* Test Item Value Reference Range Interpretation Comments Albumin/Globulin Ratio (test code = 1759-0) 1.2 0.8-2.0 [facility] Hospitalerum or plasma alkaline phosphatase measurement (enzymatic activity/volume)2019-09-23 05:42:00* Test Item Value Reference Range Interpretation Comments Alkaline Phosphatase (test code = 6768-6) 108 40-150 [facility] CampusBlood leukocytes automated count (number/volume)2019-09-23 05:42:00* Test Item Value Reference Range Interpretation Comments White Blood Count (test code = 6690-2) 8.62 4.8-10.8 [facility] CampusBlowat[facility] hospital erythrocytes automated count (number/volume)2019-09-23 05:42:00* Test Item Value Reference Range Interpretation Comments Red Blood Count (test code = 789-8) 3.57 4.3-5.7 [facility] CampusBlood hemoglobin measurement (moles/volume)2019-09-23 05:42:00* Test Item Value Reference Range Interpretation Comments Hemoglobin (test code = 63113-5) 10.3 14.0-18.0 [facility] CampusAutomated blood hematocrit (volume fraction)2019-09-23 05:42:00* Test Item Value Reference Range Interpretation Comments Hematocrit (test code = 4544-3) 32.2 38.2-49.6 [facility] CampusAutomated erythrocyte mean corpuscular juyqms3894-87-55 05:42:00* Test Item Value Reference Range Interpretation [...] [facility] CampusRDW OcnUx-Was0920-01-26 05:42:00* Test Item Value Reference Range Interpretation Comments Red Cell Distribution Width (test code = 55155-2) 13.7 11.7 -14.4 [facility] CampusAutomated blood platelet count (count/volume)2019-09-23 05:42:00* Test Item Value Reference Range Interpretation Comments Platelet Count (test code = 777-3) 183 140-360 [facility] CampusAutomated blood segmented neutrophil count as percentage of total jhjeoffszg0066-33-14 05:42:00* Test Item Value Reference Range Interpretation Comments Neutrophils (%) (Auto) (test code = 79469-5) 78.4 38.7-80.0 [facility] CampusAutomated blood lymphocyte count as percentage ot total wooyohebob6785-29-96 05:42:00* Test Item Value Reference Range Interpretation Comments Lymphocytes (%) (Auto) (test code = 736-9) 13.1 18.0-39.1 [facility] CampusAutomated blood monocyte count as percentage of total ofddcblwmd1555-02-94 05:42:00* Test Item Value Reference Range Interpretation Comments Monocytes (%) (Auto) (test code = 5905-5) 7.7 4.4-11.3 [facility] CampusAutomated blood eosinophil count as percentage of total brsnfevqef1229-54-77 05:42:00* Test Item Value Reference Range Interpretation Comments Eosinophils (%) (Auto) (test code = 713-8) 0.1 0.0-6.0 [facility] CampusAutomated blood basophil count as percentage of total zflvghnzub2573-39-89 05:42:00* Test Item Value Reference Range Interpretation Comments Basophils (%) (Auto) (test code = 706-2) 0.5 0.0-1.0 [facility] CampusFluoroscopic procedure less than one hour qeeevagf5674-23-53 05:42:00* Test Item Value Reference Range Interpretation [...] Comments Lymphocytes # (Auto) (test code = 79539-9) 1.1 1.0-3.2 [facility] [...] [facility] CampusFluoroscopic procedure less than one hour ovuuaqnd2945-68-30 05:42:00* Test Item Value Reference Range Interpretation Comments Absolute Immature Granulocyte (auto (zeenat t code = Absolute Immature Granulocyte (auto) 0.02 0-0.1 [facility] Hospitalerum or plasma sodium measurement (moles/volume)2019-09-23 05:42:00* Test Item Value Reference Range Interpretation Comments Sodium Level (test code = 2951-2) 138 136-145 [facility] Hospitalerum or plasma potassium measurement (moles/volume)2019-09-23 05:42:00* Test Item Value Reference Range Interpretation Comments Potassium Level (test code = 2823-3) 3.6 3.5-5.1 [facility] Hospitalerum or plasma chloride measurement (moles/volume)2019-09-23 05:42:00* Test Item Value Reference Range Interpretation Comments Chloride Level (test code = 2075-0) 101 98-107 [facility] Hospitalerum or plasma carbon dioxide, total measurement (moles/volume)2019-09-23 05:42:00* Test Item Value Reference Range Interpretation Comments Carbon Dioxide Level (test code = 2028-9) 28 22-29 [facility] Hospitalerum or plasma anion hqv3649-69-44 05:42:00* Test Item Value Reference Range Interpretation Comments Anion Gap (test code = 68121-8) 12.6 8-16 [facility] Hospitalerum or plasma urea nitrogen measurement (mass/volume)2019-09-23 05:42:00* Test Item Value Reference Range Interpretation Comments Blood Urea Nitrogen (test code = 3094-0) 22 7-26 [facility] Hospitalerum or plasma creatinine measurement (mass/volume)2019-09-23 05:42:00* Test Item Value Reference Range Interpretation Comments Creatinine (test code = 2160-0) 1.16 0.72-1.25 [facility] Hospitalerum or plasma urea nitrogen/creatinine mass hxhsp4255-04-05 05:42:00* Test Item Value Reference Range Interpretation Comments BUN/Creatinine Ratio (test code = 3097-3) 19 6-25 [facility] CampusEstimated glomerular filtration rate (GFR) pgbszspndmwoi2536-71-73 05:42:00* Test Item Value Reference Range Interpretation Comments Estimat Glomerular Filtration Rate (test code = 364630935) > 60 >60 Ranges were taken from the National Kidney Disease Education Program and the [place] [facility] Kid[facility] Foundation literature.Reference ranges:60 or greater: Ubjknx53-45 ( for 3 consecutive months): Chronic kidney disease 15 or less: Kidney failureThe Hospitals of Providence [facility] CampusGlucose phlopiinheb7224-00-82 05:42:00* Test Item Value Reference Range Interpretation Comments Glucose Level (test code = BAN0502) 266 74-118 [facility] Hospitalerum or plasma calcium measurement (mass/volume)2019-09-23 05:42:00* Test Item Value Reference Range Interpretation Comments Calcium Level (test code = 91879-0) 8.3 8.4-10.2 [facility] Hospitalerum or plasma total bilirubin measurement (mass/volume)2019-09-23 05:42:00* Test Item Value Reference Range Interpretation Comments Total Bilirubin (test code = 1975-2) 0.4 0.2-1.2 [facility] CampusFluoroscopic procedure less than one hour wzoavavr1443-76-22 05:42:00* Test Item Value Reference Range Interpretation Comments Aspartate Amino Transf (AST/SGOT) (test code = Aspartate Amino Transf (AST/SGOT)) 14 5-34 [facility] Hospitalerum or plasma alanine aminotransferase measurement (enzymatic activity/volume)2019-09-23 05:42:00* Test Item Value Reference Range Interpretation Comments Alanine Aminotransferase (ALT/SGPT) (test code = 1742-6) 14 0-55 [facility] Hospitalerum or plasma protein measurement (mass/volume)2019-09-23 05:42:00* Test Item Value Reference Range Interpretation Comments Total Protein (test code = 2885-2) 6.2 6.5-8.1 [facility] Hospitalerum or plasma albumin measurement (mass/volume)2019-09-23 05:42:00* Test Item Value Reference Range Interpretation Comments Albumin (test code = 1751-7) 3.4 3.5-5.0 [facility] CampusPlasma globulin measurement (mass/volume) 2019-09-23 05:42:00* Test Item Value Reference Range Interpretation Comments Globulin (test code = 73404-6) 2.8 2.3-3.5 [facility] Hospitalerum or plasma albumin/globulin mass pmfyj3261-44-02 05:42:00* Test Item Value Reference Range Interpretation Comments Albumin/Globulin Ratio (test code = 1759-0) 1.2 0.8-2.0 [facility] Hospitalerum or plasma alkaline phosphatase measurement (enzymatic activity/volume)2019-09-23 05:42:00* Test Item Value Reference Range Interpretation Comments Alkaline Phosphatase (test code = 6768-6) 108 40-150 [facility] CampusABDOMEN-1VIEW (KUB)2019-09-22 13:59:00 [facility] [address] [address] Patient Name: BREE LINDSAY MR #: [id number] : 1975 Age/Sex: 43/M Req #: [id number] Adm Physician: RUSLAN CARTER MD Ordered by: RULSAN CARTER MD Re port #: [id number] Location: MED/SURG3 Room/ Bed: [facility] Procedure: [id number] DX/ABDOMEN-1V IEW (KUB) Exam Date: 09/22/19 Exam Time: 1330 REPORT STATUS: Signed Exam: KUB - 2 vi ews Indication: Abdominal Pain Comparison: CT abdomen and pelvis of Findings: Nonobstructive bowel gas pattern. No evidence of free intraperitoneal air. No evidence of abnormal calcification. No acute bony abno rmality. Impression: No acute radiographic abnormality. Signed by: Ezequiel Madsne MD on 09/22/2019 2:00 PM Dictated By: ALEXANDER MADSEN MD Electronic ally Signed By: ALEXANDER MADSEN MD on 09/22/19 1400 Transcribed By: PAULA on 09/21 1400 COPY TO: RUSLAN CARTER MD Capillary blood glucose measurement by glucometer (mass/volume)2019-08-25 11:40:00* Test Item Value Reference Range Interpretation Comments Bedside Glucose (test code = 25128-5) 179 70-120 Meter ID: [id number] [facility] measurement by glucometer (mass/volume)2019-08-25 11:40:00* Test Item Value Reference Range Interpretation Comments Bedside Glucose (test code = 51722-0) 179 70-120 Meter ID: [id number] [facility]woodFlu[facility] procedure less than one hour bcwbqqhq0492-61-18 13:20:00* Test Item Value Reference Range Interpretation [...] complexity tests.Testing performed by [facility] [id number] [phone] Director: Yuri Perry M.D.CLIA # [id number] [facility] Fluoroscopic procedure less than one hour uyayfavn8668-90-06 13:20:00* Test Item Value Reference Range Interpretation [...] complexity tests.Testing performed by [facility] [id number] [place], [place] [phone] Director: Yuri Perry M.D.CLIA # [id number] [facility] Fluoroscopic procedure less than one hour sdsndfka7871-75-35 13:20:00* Test Item Value Reference Range Interpretation [...] complexity tests.Testing performed by [facility] [address] [phone] Director: Yuri Perry M.D.CLIA # [id number] [facility] Fluoroscopic procedure less than one hour wpobrjoh5925-04-91 13:20:00* Test Item Value Reference Range Interpretation [...] complexity tests.Testing performed by [facility] [address] [phone] Director: Yuri Perry M.D.CLIA # [id number] [facility] Fluoroscopic procedure less than one hour gypsoapb2263-41-74 13:20:00* Test Item Value Reference Range Interpretation [...] complexity tests.Testing performed by [facility] [address] [phone] Director: Yuri Perry M.D.TIFFANY # [id number] [facility] Capillary blood glucose measurement by glucometer (mass/volume)2019-07-24 11:15:00* Test Item Value Reference Range Interpretation Comments Bedside Glucose (test code = 48767-0) 145 70-120 Meter ID: [id number] [facility] AliceBlood leukocytes automated count (number/volume)2019-07-24 06:10:00* Test Item [...] Range Interpretation Comments Hemoglobin (test code = 99395-5) 9.4 14.0-18.0 [facility] CampusAutomated blood hematocrit (volume fraction)2019-07-24 06:10:00* Test Item Value Reference Range Interpretation Comments Hematocrit (test code = 4544-3) 29.7 38.2-49.6 [facility] CampusAutomated erythrocyte mean corpuscular jjzrrj5464-21-38 06:10:00* Test Item Value Reference Range Interpretation [...] [facility] CampusRDW XkvJn-Bxu7406-71-26 06:10:00* Test Item Value Reference Range Interpretation Comments Red Cell Distribution Width (test code = 71754-8) 14.5 11.7 -14.4 [facility] CampusAutomated blood platelet count (count/volume)2019-07-24 06:10:00* Test Item Value Reference Range Interpretation Comments Platelet Count (test code = 777-3) 132 140-360 [facility] CampusAutomated blood segmented neutrophil count as percentage of total ncvlkngdtg2016-92-38 06:10:00* Test Item Value Reference Range Interpretation Comments Neutrophils (%) (Auto) (test code = 41241-6) 61.3 38.7-80.0 [facility] blood lymphocyte count as percentage ot total qxcsmfydvo8147-38-72 06:10:00* Test Item Value Reference Range Interpretation Comments Lymphocytes (%) (Auto) (test code = 736-9) 24.9 18.0-39.1 [facility] CampusAutomated blood monocyte count as percentage of total gybkmrvmsd0532-54-42 06:10:00* Test Item Value Reference Range Interpretation Comments Monocytes (%) (Auto) (test code = 5905-5) 10.0 4.4-11.3 [facility] CampusAutformerly [facility] blood eosinophil count as percentage of total gxjdqpmqgv6200-61-43 06:10:00* Test Item Value Reference Range Interpretation Comments Eosinophils (%) (Auto) (test code = 713-8) 2.6 0.0-6.0 [facility] CampusAutomated blood basophil count as percentage of total vqwbnzwcdj6711-40-71 06:10:00* Test Item Value Reference Range Interpretation Comments Basophils (%) (Auto) (test code = 706-2) 0.9 0.0-1.0 [facility] CampusFluoroscopic procedure less than one hour vuojcwko2590-94-59 06:10:00* Test Item Value Reference Range Interpretation [...] Comments Lymphocytes # (Auto) (test code = 19031-5) 1.6 1.0-3.2 [facility] CampusFluoroscopic procedure less than one hour voxzjcho7596-56-08 06:10:00* Test Item Value Reference Range Interpretation Comments Absolute Immature Granulocyte (auto (zeenat t code = Absolute Immature Granulocyte (auto) 0.02 0-0.1 [facility] sodium measurement (moles/volume)2019-07-24 06:10:00* Test Item Value Reference Range Interpretation Comments Sodium Level (test code = 2951-2) 136 136-145 [facility] Hospitaler[facility] or plasma potassium measurement (moles/volume)2019-07-24 06:10:00* Test Item Value Reference Range Interpretation Comments Potassium Level (test code = 2823-3) 3.7 3.5-5.1 [facility] Hospitaler[facility] or plasma chloride measurement (moles/volume)2019-07-24 06:10:00* Test Item Value Reference Range Interpretation Comments Chloride Level (test code = 2075-0) 106 98-107 [facility] Hospitaler[facility] or plasma carbon dioxide, total measurement (moles/volume)2019-07-24 06:10:00* Test Item Value Reference Range Interpretation Comments Carbon Dioxide Level (test code = 2028-9) 23 22-29 [facility] Hospitaler[facility] or plasma anion kti6307-46-24 06:10:00* Test Item Value Reference Range Interpretation Comments Anion Gap (test code = 93339-9) 10.7 8-16 [facility] Hospitaler[facility] plasma urea nitrogen measurement (mass/volume)2019-07-24 06:10:00* Test Item Value Reference Range Interpretation Comments Blood Urea Nitrogen (test code = 3094-0) 13 7-26 [facility] Hospitaler[facility] plasma creatinine measurement (mass/volume)2019-07-24 06:10:00* Test Item Value Reference Range Interpretation Comments Creatinine (test code = 2160-0) 1.24 0.72-1.25 [facility] Hospitaler[facility] or plasma urea nitrogen/creatinine mass dqyfn2651-23-25 06:10:00* Test Item Value Reference Range Interpretation Comments BUN/Creatinine Ratio (test code = 3097-3) 10 6-25 [facility] CampusEstimated glomerular filtration rate (GFR) swebrkcbpawsq3527-71-73 06:10:00* Test Item Value Reference Range Interpretation Comments Estimat Glomerular Filtration Rate (test code = 532616822) > 60 >60 Ranges were taken from the National Kidney Disease Education Program and the [place] count includes the [facility] Kidney Foundation literature.Reference ranges:60 or greater: Fjhams71-87 ( for 3 consecutive months): Chronic kidney disease 15 or less: Kidney failureThe Hospitals of Providence [facility] City CampusGlucose zgbrszteaou7527-17-84 06:10:00* Test Item Value Reference Range Interpretation Comments Glucose Level (test code = YCB0804) 148 74-118 [facility] Hospitaler[facility] or plasma calcium measurement (mass/volume)2019-07-24 06:10:00* Test Item Value Reference Range Interpretation Comments Calcium Level (test code = 90738-5) 8.6 8.4-10.2 [facility] Hospitaler[facility] or plasma total bilirubin measurement (mass/volume)2019-07-24 06:10:00* Test Item Value Reference Range Interpretation Comments Total Bilirubin (test code = 1975-2) 0.5 0.2-1.2 [facility] CampusFluoroscopic procedure less than one hour izljwqkl9475-32-41 06:10:00* Test Item Value Reference Range Interpretation Comments Aspartate Amino Transf (AST/SGOT) (test code = Aspartate Amino Transf (AST/SGOT)) 14 5-34 [facility] Hospitaler[facility] or plasma alanine aminotransferase measurement (enzymatic activity/volume)2019-07-24 06:10:00* Test Item Value Reference Range Interpretation Comments Alanine Aminotransferase (ALT/SGPT) (test code = 1742-6) 15 0-55 [facility] Hospitaler[facility] or plasma protein measurement (mass/volume)2019-07-24 06:10:00* Test Item Value Reference Range Interpretation Comments Total Protein (test code = 2885-2) 6.2 6.5-8.1 [facility] Hospitaler[facility] or plasma albumin measurement (mass/volume)2019-07-24 06:10:00* Test Item Value Reference Range Interpretation Comments Albumin (test code = 1751-7) 3.1 3.5-5.0 [facility] CampusPlasma globulin measurement (mass/volume) 2019-07-24 06:10:00* Test Item Value Reference Range Interpretation Comments Globulin (test code = 52956-9) 3.1 2.3-3.5 [facility] Hospitaler[facility] or plasma albumin/globulin mass dgmtq3545-61-10 06:10:00* Test Item Value Reference Range Interpretation Comments Albumin/Globulin Ratio (test code = 1759-0) 1.0 0.8-2.0 [facility] Hospitaler[facility] or plasma alkaline phosphatase measurement (enzymatic activity/volume)2019-07-24 06:10:00* Test Item Value Reference Range Interpretation Comments Alkaline Phosphatase (test code = 6768-6) 106 40-150 [facility] Hospitaler[facility] or plasma amylase measurement (enzymatic activity/volume)2019-07-24 06:10:00* Test Item Value Reference Range Interpretation Comments Amylase Level (test code = 1798-8) 36 25-125 [facility] Hospitaler[facility] or plasma lipase measurement (enzymatic activity/volume)2019-07-24 [...] Count (test code = 789-8) 3.29 4.3-5.7 [facility] hemoglobin measurement (moles/volume)2019-07-24 06:10:00* Test Item Value Reference Range Interpretation Comments Hemoglobin (test code = 83018-6) 9.4 14.0-18.0 [facility] CampusAutomated blood hematocrit (volume fraction)2019-07-24 06:10:00* Test Item Value Reference Range Interpretation Comments Hematocrit (test code = 4544-3) 29.7 38.2-49.6 [facility] CampusAutomated erythrocyte mean corpuscular qijcwi9302-79-59 06:10:00* Test Item Value Reference Range Interpretation [...] [facility] CampusRDW GbmHc-Hvd0401-32-26 06:10:00* Test Item Value Reference Range Interpretation Comments Red Cell Distribution Width (test code = 64814-4) 14.5 11.7 -14.4 [facility] CampusAutomated blood platelet count (count/volume)2019-07-24 06:10:00* Test Item Value Reference Range Interpretation Comments Platelet Count (test code = 777-3) 132 140-360 [facility] CampusAutomated blood segmented neutrophil count as percentage of total rugcpibshk1102-65-03 06:10:00* Test Item Value Reference Range Interpretation Comments Neutrophils (%) (Auto) (test code = 90684-3) 61.3 38.7-80.0 [facility] CampusAutformerly [facility]ed blood lymphocyte count as percentage ot total whqhisnfvg6463-59-00 06:10:00* Test Item Value Reference Range Interpretation Comments Lymphocytes (%) (Auto) (test code = 736-9) 24.9 18.0-39.1 [facility] CampusAutomated blood monocyte count as percentage of total unbsjivvgu2111-27-34 06:10:00* Test Item Value Reference Range Interpretation Comments Monocytes (%) (Auto) (test code = 5905-5) 10.0 4.4-11.3 [facility] CampusAutformerly [facility] blood eosinophil count as percentage of total mznbysfpar9739-32-09 06:10:00* Test Item Value Reference Range Interpretation Comments Eosinophils (%) (Auto) (test code = 713-8) 2.6 0.0-6.0 [facility] CampusAutomated blood basophil count as percentage of total odvjzchggk1902-85-10 06:10:00* Test Item Value Reference Range Interpretation Comments Basophils (%) (Auto) (test code = 706-2) 0.9 0.0-1.0 [facility] CampusFluoroscopic procedure less than one hour zgvhsqrm6843-76-32 06:10:00* Test Item Value Reference Range Interpretation [...] Comments Lymphocytes # (Auto) (test code = 41123-3) 1.6 1.0-3.2 [facility] [...] City CampusFluoroscopic procedure less than one hour epstdcxo1422-98-97 06:10:00* Test Item Value Reference Range Interpretation Comments Absolute Immature Granulocyte (auto (zeenat t code = Absolute Immature Granulocyte (auto) 0.02 0-0.1 [facility] Hospitaler[facility] or plasma sodium measurement (moles/volume)2019-07-24 06:10:00* Test Item Value Reference Range Interpretation Comments Sodium Level (test code = 2951-2) 136 136-145 [facility] Hospitaler[facility] or plasma potassium measurement (moles/volume)2019-07-24 06:10:00* Test Item Value Reference Range Interpretation Comments Potassium Level (test code = 2823-3) 3.7 3.5-5.1 [facility] Hospitaler[facility] or plasma chloride measurement (moles/volume)2019-07-24 06:10:00* Test Item Value Reference Range Interpretation Comments Chloride Level (test code = 2075-0) 106 98-107 [facility] Hospitaler[facility] or plasma carbon dioxide, total measurement (moles/volume)2019-07-24 06:10:00* Test Item Value Reference Range Interpretation Comments Carbon Dioxide Level (test code = 2028-9) 23 22-29 [facility] Hospitaler[facility] or plasma anion pxf9643-56-92 06:10:00* Test Item Value Reference Range Interpretation Comments Anion Gap (test code = 38031-7) 10.7 8-16 [facility] Hospitaler[facility] or plasma urea nitrogen measurement (mass/volume)2019-07-24 06:10:00* Test Item Value Reference Range Interpretation Comments Blood Urea Nitrogen (test code = 3094-0) 13 7-26 [facility] Hospitaler[facility] or plasma creatinine measurement (mass/volume)2019-07-24 06:10:00* Test Item Value Reference Range Interpretation Comments Creatinine (test code = 2160-0) 1.24 0.72-1.25 [facility] Hospitaler[facility] or plasma urea nitrogen/creatinine mass scllk4324-75-57 06:10:00* Test Item Value Reference Range Interpretation Comments BUN/Creatinine Ratio (test code = 3097-3) 10 6-25 [facility] CampusEstimated glomerular filtration rate (GFR) uakzqysdcwuau1519-36-72 06:10:00* Test Item Value Reference Range Interpretation Comments Estimat Glomerular Filtration Rate (test code = 533199415) > 60 >60 Ranges were taken from the National Kidney Disease Education Program and the [place] [facility] Kidney Foundation literature.Reference ranges:60 or greater: [place]13-77 ( for 3 consecutive months): Chronic kidney disease 15 or less: Kidney failureThe Hospitals of Providence [facility] CampusGlucose yriejaszzeq1644-31-82 06:10:00* Test Item Value Reference Range Interpretation Comments Glucose Level (test code = BYR0718) 148 74-118 [facility] Hospitaler[facility] or plasma calcium measurement (mass/volume)2019-07-24 06:10:00* Test Item Value Reference Range Interpretation Comments Calcium Level (test code = 92356-0) 8.6 8.4-10.2 [facility] Hospitaler[facility] or plasma total bilirubin measurement (mass/volume)2019-07-24 06:10:00* Test Item Value Reference Range Interpretation Comments Total Bilirubin (test code = 1975-2) 0.5 0.2-1.2 [facility] CampusFluoroscopic procedure less than one hour owchwfoy8715-02-73 06:10:00* Test Item Value Reference Range Interpretation Comments Aspartate Amino Transf (AST/SGOT) (test code = Aspartate Amino Transf (AST/SGOT)) 14 5-34 [facility] Hospitaler[facility] or plasma alanine aminotransferase measurement (enzymatic activity/volume)2019-07-24 06:10:00* Test Item Value Reference Range Interpretation Comments Alanine Aminotransferase (ALT/SGPT) (test code = 1742-6) 15 0-55 [facility] Hospitaler[facility] or plasma protein measurement (mass/volume)2019-07-24 06:10:00* Test Item Value Reference Range Interpretation Comments Total Protein (test code = 2885-2) 6.2 6.5-8.1 [facility] Hospitaler[facility] or plasma albumin measurement (mass/volume)2019-07-24 06:10:00* Test Item Value Reference Range Interpretation Comments Albumin (test code = 1751-7) 3.1 3.5-5.0 [facility] CampusPlasma globulin measurement (mass/volume) 2019-07-24 06:10:00* Test Item Value Reference Range Interpretation Comments Globulin (test code = 50199-0) 3.1 2.3-3.5 [facility] Hospitaler[facility] or plasma albumin/globulin mass lxgpx3331-03-59 06:10:00* Test Item Value Reference Range Interpretation Comments Albumin/Globulin Ratio (test code = 1759-0) 1.0 0.8-2.0 [facility] Hospitaler[facility] or plasma alkaline phosphatase measurement (enzymatic activity/volume)2019-07-24 06:10:00* Test Item Value Reference Range Interpretation Comments Alkaline Phosphatase (test code = 6768-6) 106 40-150 [facility] Hospitaler[facility] or plasma amylase measurement (enzymatic activity/volume)2019-07-24 06:10:00* Test Item Value Reference Range Interpretation Comments Amylase Level (test code = 1798-8) 36 25-125 [facility] Hospitaler[facility] or plasma lipase measurement (enzymatic activity/volume)2019-07-24 [...] Range Interpretation Comments Hemoglobin (test code = 32437-9) 9.4 14.0-18.0 [facility] CampusAutomated blood hematocrit (volume fraction)2019-07-24 06:10:00* Test Item Value Reference Range Interpretation Comments Hematocrit (test code = 4544-3) 29.7 38.2-49.6 [facility] CampusAutomated erythrocyte mean corpuscular gtzhtc1026-59-71 06:10:00* Test Item Value Reference Range Interpretation [...] [facility] CampusRDW LaySp-Rat6144-01-26 06:10:00* Test Item Value Reference Range Interpretation Comments Red Cell Distribution Width (test code = 96516-7) 14.5 11.7 -14.4 [facility] CampusAutomated blood platelet count (count/volume)2019-07-24 06:10:00* Test Item Value Reference Range Interpretation Comments Platelet Count (test code = 777-3) 132 140-360 [facility] CampusAutomated blood segmented neutrophil count as percentage of total mdvdriidoi3964-54-28 06:10:00* Test Item Value Reference Range Interpretation Comments Neutrophils (%) (Auto) (test code = 27083-0) 61.3 38.7-80.0 [facility] CampusAutomated blood lymphocyte count as percentage ot total wjlwhwadkz7430-59-92 06:10:00* Test Item Value Reference Range Interpretation Comments Lymphocytes (%) (Auto) (test code = 736-9) 24.9 18.0-39.1 [facility] CampusAutomated blood monocyte count as percentage of total uueebllikd2900-84-04 06:10:00* Test Item Value Reference Range Interpretation Comments Monocytes (%) (Auto) (test code = 5905-5) 10.0 4.4-11.3 [facility] CampusAutomated blood eosinophil count as percentage of total kksbirfuyo7299-35-31 06:10:00* Test Item Value Reference Range Interpretation Comments Eosinophils (%) (Auto) (test code = 713-8) 2.6 0.0-6.0 [facility] CampusAutomated blood basophil count as percentage of total xfswnqkvxj1040-23-00 06:10:00* Test Item Value Reference Range Interpretation Comments Basophils (%) (Auto) (test code = 706-2) 0.9 0.0-1.0 [facility] CampusFluoroscopic procedure less than one hour vzawsnxu7629-25-77 06:10:00* Test Item Value Reference Range Interpretation [...] Comments Lymphocytes # (Auto) (test code = 69149-8) 1.6 1.0-3.2 [facility] [...] City CampusFluoroscopic procedure less than one hour ssbsdfwe4811-80-21 06:10:00* Test Item Value Reference Range Interpretation Comments Absolute Immature Granulocyte (auto (zeenat t code = Absolute Immature Granulocyte (auto) 0.02 0-0.1 [facility] Hospitaler[facility] or plasma sodium measurement (moles/volume)2019-07-24 06:10:00* Test Item Value Reference Range Interpretation Comments Sodium Level (test code = 2951-2) 136 136-145 [facility] Hospitalerum or plasma potassium measurement (moles/volume)2019-07-24 06:10:00* Test Item Value Reference Range Interpretation Comments Potassium Level (test code = 2823-3) 3.7 3.5-5.1 [facility] Hospitaler[facility] or plasma chloride measurement (moles/volume)2019-07-24 06:10:00* Test Item Value Reference Range Interpretation Comments Chloride Level (test code = 2075-0) 106 98-107 [facility] Hospitaler[facility] or plasma carbon dioxide, total measurement (moles/volume)2019-07-24 06:10:00* Test Item Value Reference Range Interpretation Comments Carbon Dioxide Level (test code = 2028-9) 23 22-29 [facility] Hospitaler[facility] or plasma anion ayq3088-71-05 06:10:00* Test Item Value Reference Range Interpretation Comments Anion Gap (test code = 13248-9) 10.7 8-16 [facility] Hospitaler[facility] or plasma urea nitrogen measurement (mass/volume)2019-07-24 06:10:00* Test Item Value Reference Range Interpretation Comments Blood Urea Nitrogen (test code = 3094-0) 13 7-26 [facility] Hospitaler[facility] or plasma creatinine measurement (mass/volume)2019-07-24 06:10:00* Test Item Value Reference Range Interpretation Comments Creatinine (test code = 2160-0) 1.24 0.72-1.25 [facility] Hospitaler[facility] or plasma urea nitrogen/creatinine mass groxk5873-06-27 06:10:00* Test Item Value Reference Range Interpretation Comments BUN/Creatinine Ratio (test code = 3097-3) 10 6-25 [facility] CampusEstimated glomerular filtration rate (GFR) mmmkydvdkmsil5865-59-68 06:10:00* Test Item Value Reference Range Interpretation Comments Estimat Glomerular Filtration Rate (test code = 002114007) > 60 >60 Ranges were taken from the National Kidney Disease Education Program and the [facility] Kidney Foundation literature.Reference ranges:60 or greater: Dlzkyf52-64 ( for 3 consecutive months): Chronic kidney disease 15 or less: Kidney failureThe Hospitals of Providence [facility] City CampusGlucose cpbcuvgienf5138-53-79 06:10:00* Test Item Value Reference Range Interpretation Comments Glucose Level (test code = SNB6598) 148 74-118 [facility] Hospitaler[facility] or plasma calcium measurement (mass/volume)2019-07-24 06:10:00* Test Item Value Reference Range Interpretation Comments Calcium Level (test code = 28672-7) 8.6 8.4-10.2 [facility] Hospitaler[facility] or plasma total bilirubin measurement (mass/volume)2019-07-24 06:10:00* Test Item Value Reference Range Interpretation Comments Total Bilirubin (test code = 1975-2) 0.5 0.2-1.2 [facility] CampusFluoroscopic procedure less than one hour nwhpzlgi8062-13-14 06:10:00* Test Item Value Reference Range Interpretation Comments Aspartate Amino Transf (AST/SGOT) (test code = Aspartate Amino Transf (AST/SGOT)) 14 5-34 [facility] [facility] alanine aminotransferase measurement (enzymatic activity/volume)2019-07-24 06:10:00* Test Item Value Reference Range Interpretation Comments Alanine Aminotransferase (ALT/SGPT) (test code = 1742-6) 15 0-55 [facility] protein measurement (mass/volume)2019-07-24 06:10:00* Test Item Value Reference Range Interpretation Comments Total Protein (test code = 2885-2) 6.2 6.5-8.1 [facility] albumin measurement (mass/volume)2019-07-24 06:10:00* Test Item Value Reference Range Interpretation Comments Albumin (test code = 1751-7) 3.1 3.5-5.0 [facility] globulin measurement (mass/volume) 2019-07-24 06:10:00* Test Item Value Reference Range Interpretation Comments Globulin (test code = 90063-9) 3.1 2.3-3.5 [facility] albumin/globulin mass bjmdw0136-73-19 06:10:00* Test Item Value Reference Range Interpretation Comments Albumin/Globulin Ratio (test code = 1759-0) 1.0 0.8-2.0 [facility] alkaline phosphatase measurement (enzymatic activity/volume)2019-07-24 06:10:00* Test Item Value Reference Range Interpretation Comments Alkaline Phosphatase (test code = 6768-6) 106 40-150 [facility] amylase measurement (enzymatic activity/volume)2019-07-24 06:10:00* Test Item Value Reference Range Interpretation Comments Amylase Level (test code = 1798-8) 36 25-125 [facility] lipase measurement (enzymatic activity/volume)2019-07-24 06:10:00* Test Item Value Reference Range Interpretation Comments Lipase (test code = 3040-3) < 4 8-78 [facility] amylase measurement (enzymatic activity/volume)2019-07-24 06:10:00* Test Item Value Reference Range Interpretation Comments Amylase Level (test code = 1798-8) 36 25-125 [facility] lipase measurement (enzymatic activity/volume)2019-07-24 06:10:00* Test Item Value Reference Range Interpretation Comments Lipase (test code = 3040-3) < 4 8-78 [facility] amylase measurement (enzymatic activity/volume)2019-07-24 06:10:00* Test Item Value Reference Range Interpretation Comments Amylase Level (test code = 1798-8) 36 25-125 [facility] lipase measurement (enzymatic activity/volume)2019-07-24 06:10:00* Test Item Value Reference Range Interpretation Comments Lipase (test code = 3040-3) < 4 8-78 [facility]Fluoroscopic procedure less than one hour ltqidwpc6709-19-52 12:20:00* Test Item Value Reference Range Interpretation Comments Hemoglobin A1c Percent (test code = Hemoglobin A1c Percent) 8.4 4.0-7.0 [facility] CampusFluoroscopic procedure less than one hour rikcrdiw7282-30-42 12:20:00* Test Item Value Reference Range Interpretation Comments Lactic Acid Level (test code = Lactic Acid Level) 0.8 0.5- 2.0 [facility] CampusFluoroscopic procedure less than one hour araiqbos3556-76-65 12:20:00* Test Item Value Reference Range Interpretation Comments Hemoglobin A1c Percent (test code = Hemoglobin A1c Percent) 8.4 4.0-7.0 [facility] CampusFluoroscopic procedure less than one hour jdwnjkbw8935-28-50 12:20:00* Test Item Value Reference Range Interpretation Comments Lactic Acid Level (test code = Lactic Acid Level) 0.8 0.5- 2.0 [facility] CampusFluoroscopic procedure less than one hour mhajmlfc0339-92-32 12:20:00* Test Item Value Reference Range Interpretation Comments Hemoglobin A1c Percent (test code = Hemoglobin A1c Percent) 8.4 4.0-7.0 [facility] CampusFluoroscopic procedure less than one hour dawougsk5775-57-69 12:20:00* Test Item Value Reference Range Interpretation Comments Lactic Acid Level (test code = Lactic Acid Level) 0.8 0.5- 2.0 [facility] CampusFluoroscopic procedure less than one hour eitsnzbt0671-13-57 12:20:00* Test Item Value Reference Range Interpretation Comments Hemoglobin A1c Percent (test code = Hemoglobin A1c Percent) 8.4 4.0-7.0 [facility] CampusFluoroscopic procedure less than one hour mmlsqjxt5044-48-98 12:20:00* Test Item Value Reference Range Interpretation Comments Lactic Acid Level (test code = Lactic Acid Level) 0.8 0.5- 2.0 [facility] CampusFluoroscopic procedure less than one hour vuowvrov4959-66-97 12:20:00* Test Item Value Reference Range Interpretation Comments Hemoglobin A1c Percent (test code = Hemoglobin A1c Percent) 8.4 4.0-7.0 [facility] CampusFluoroscopic procedure less than one hour wfcmkukx9688-10-61 12:20:00* Test Item Value Reference Range Interpretation Comments Lactic Acid Level (test code = Lactic Acid Level) 0.8 0.5- 2.0 [facility] CampusFluoroscopic procedure less than one hour focpoiyf2569-81-73 12:20:00* Test Item Value Reference Range Interpretation Comments Hemoglobin A1c Percent (test code = Hemoglobin A1c Percent) 8.4 4.0-7.0 [facility] CampusFluoroscopic procedure less than one hour xxdlmapb2888-73-74 12:20:00* Test Item Value Reference Range Interpretation Comments Hemoglobin A1c Percent (test code = Hemoglobin A1c Percent) 8.4 4.0-7.0 [facility] CampusCT ABD/PEL WO ABVXEOIK-PPIC6513-16-25 06:46:00 [place] [address] Patient Name: BREE LINDSAY MR #: [id number] : 1975 Age/[facility]: 43[id number] Req #: [id number] Adm Physician: Ordered by: NEIL PEREZ MD Report #: [id number] Location: [facility] Room/Bed: Procedure: [id number] HOPD/CT ABD/PEL WO CONTRAST-HOPD Exam Date: 07/23/19 [...] COPY TO: NEIL PEREZ MD Bacterial blood byqbkek4841-31-07 06:44:00* Test Item Value Reference Range Interpretation Comments Blood Culture (test code = 600-7) STAPHYLOCOCCUS SP COAG NEG [facility] CampusBacterial blood tqkmfjr9065-34-34 06:44:00* Test Item Value Reference Range Interpretation Comments Blood Culture (test code = 600-7) STAPHYLOCOCCUS SP COAG NEG [facility] CampusBacterial blood fxzsdgf5565-33-87 06:44:00* Test Item Value Reference Range Interpretation Comments Blood Culture (test code = 600-7) STAPHYLOCOCCUS SP COAG NEG [facility] CampusBacterial blood ozfyatl1705-07-54 06:44:00* Test Item Value Reference Range Interpretation Comments Blood Culture (test code = 600-7) STAPHYLOCOCCUS SP COAG NEG [facility] CampusBacterial blood nsufxmk8458-21-26 06:44:00* Test Item Value Reference Range Interpretation Comments Blood Culture (test code = 600-7) STAPHYLOCOCCUS SP COAG NEG [facility] CampusBacterial blood wyarlvt8548-85-38 06:44:00* Test Item Value Reference Range Interpretation Comments Blood Culture (test code = 600-7) STAPHYLOCOCCUS SP COAG NEG [facility] CampusBacteria blood dtfszpr7174-41-42 06:44:00* Test Item Value Reference Range Interpretation Comments Blood Culture (test code = 600-7) STAPHYLOCOCCUS SP COAG NEG [facility] llcdmtx5018-71-72 06:44:00* Test Item Value Reference Range Interpretation Comments Blood Culture (test code = 600-7) STAPHYLOCOCCUS SP COAG NEG [facility] CampusBaokeria blood fwevnpt6697-16-73 06:44:00* Test Item Value Reference Range Interpretation Comments Blood Culture (test code = 600-7) STAPHYLOCOCCUS SP COAG NEG [facility] kccbdyw1956-73-10 06:44:00* Test Item Value Reference Range Interpretation Comments Blood Culture (test code = 600-7) STAPHYLOCOCCUS SP COAG NEG [facility]ct[facility] blood rlkwasx0116-41-48 06:44:00* Test Item Value Reference Range Interpretation Comments Blood Culture (test code = 600-7) STAPHYLOCOCCUS SP COAG [facility] 1 VEW - BSPW9942-60-61 06:44:00 [facility] [address] [place] [address] Patient Name: BREE LINDSAY MR #: [id number] : 1975 Age/Sex: 43/M Req #: [id number] Adm Physician: Ordered by: NEIL PEREZ MD Report #: [id number] Location: [facility] Room/Bed: Procedure: [id number] HOPD/CXR 1 VEW - HOPD Exam Date: [...] 07/23/19645 COPY TO: NEIL PEREZ MD Blood pqrpkrs3630-31-86 06:05:00* Test Item Value Reference Range Interpretation Comments Blood Culture (test code = 28686079) NO GROWTH AFTER 5 DAYS, FINAL REPORT [facility] lqeuifd5381-28-07 06:05:00* Test Item Value Reference Range Interpretation Comments Blood Culture (test code = 55223669) NO GROWTH AFTER 5 DAYS, FINAL REPORT [facility] zjzwfqz5580-79-72 06:05:00* Test Item Value Reference Range Interpretation Comments Blood Culture (test code = 83517187) NO GROWTH AFTER 5 DAYS, FINAL REPORT [facility] avgzifw8088-41-44 06:05:00* Test Item Value Reference Range Interpretation Comments Blood Culture (test code = 91336312) NO GROWTH AFTER 5 DAYS, FINAL REPORT [facility] jnqguou5003-90-97 06:05:00* Test Item Value Reference Range Interpretation Comments Blood Culture (test code = 23769766) NO GROWTH AFTER 5 DAYS, FINAL REPORT [facility]2020-04-25 06:05:00* Test Item Value Reference Range Interpretation Comments Blood Culture (test code = 32687250) NO GROWTH AFTER 5 DAYS, FINAL REPORT [facility] CampusBedside Lbbwvcu4644-75-46 08:12:00* Test Item Value Reference Range Interpretation Comments Bedside Glucose (test code = 66906-4) 120 70-120 Meter ID: [id number] L. [facility] Hospitalodium Level 2019-07-10 07:06:00* Test Item Value Reference Range Interpretation Comments Sodium Level (test code = 2951-2) 139 136-145 [facility] CampusPotassium Isrwj2598-56-50 07:06:00* Test Item Value Reference Range Interpretation Comments Potassium Level (test code = 2823-3) 3.3 3.5-5.1 L [facility] CampusChloride Zedck2774-79-89 07:06:00* Test Item Value Reference Range Interpretation Comments Chloride Level (test code = 2075-0) 102 98-107 [facility] CampusCarbon Dioxide Ubwxo8937-01-81 07:06:00* Test Item Value Reference Range Interpretation Comments Carbon Dioxide Level (test code = 2028-9) 28 22-29 [facility] CampusAnion Gdk3002-13-34 07:06:00* Test Item Value Reference Range Interpretation Comments Anion Gap (test code = 49781-6) 12.3 8-16 [facility] CampusBlood Urea Ghbiynns1274-62-62 07:06:00* Test Item Value Reference Range Interpretation Comments Blood Urea Nitrogen (test code = 3094-0) 31 7-26 H [facility] CampusCreatinine2020-04-12 07:06:00* Test Item Value Reference Range Interpretation Comments Creatinine (test code = 2160-0) 1.55 0.72-1.25 H [facility] CampusBUN/Creatinine Hngxb9877-89-98 07:06:00* Test Item Value Reference Range Interpretation Comments BUN/Creatinine Ratio (test code = 3097-3) 20 6-25 [facility] CampusEstimat Glomerular Filtration Rate 2019-07-10 07:06:00* Test Item Value Reference Range Interpretation Comments Estimat Glomerular Filtration Rate (test code = 488871629) 60 >60 Ranges were taken from the National Kidney Disease Education Program and the [facility] Kid[facility] Foundation literature.Reference ranges:60 or greater: Abygmi44-26 ( for 3 consecutive months): Chronic kidney disease 15 or less: Kidney failureThe Hospitals of Providence Horizon City CampusGlucose Rwtgi2948-92-10 07:06:00* Test Item Value Reference Range Interpretation Comments Glucose Level (test code = PMQ3161) 92 74-118 [facility] CampusCalcium Bcisl5380-97-03 07:06:00* Test Item Value Reference Range Interpretation Comments Calcium Level (test code = 76743-6) 8.1 8.4-10.2 L [facility] CampusMagnesium Xbivs2773-68-09 06:53:00* Test Item Value Reference Range Interpretation Comments Magnesium Level (test code = 82083-6) 1.8 1.3-2.1 [facility] CampusWhite Blood Yvgqn3881-43-59 06:24:00* Test Item Value Reference Range Interpretation Comments White Blood Count (test code = 6690-2) 8.09 4.8-10.8 [facility] CampusRed Blood Aojat7174-25-48 06:24:00* Test Item Value Reference Range Interpretation Comments Red Blood Count (test code = 789-8) 3.66 4.3-5.7 L [facility] CampusHemoglobin2020-04-12 06:24:00* Test Item Value Reference Range Interpretation Comments Hemoglobin (test code = 98641-1) 10.1 14.0-18.0 L [facility] CampusHematocrit2020-04-12 06:24:00* Test Item Value Reference Range Interpretation Comments Hematocrit (test code = 4544-3) 32.4 38.2-49.6 L [facility] CampusMean Corpuscular Uevpbh3311-77-19 06:24:00* Test Item Value Reference Range Interpretation Comments Mean Corpuscular Volume (test code = 787-2) 88.5 81-99 [facility] CampusMean Corpuscular Xaeiaosbgy0053-24-48 06:24:00* Test Item Value Reference Range Interpretation Comments Mean Corpuscular Hemoglobin (test code = 785-6) 27.6 28-32 L [facility] CampusMean Corpuscular Hemoglobin Concent 2019-07-10 06:24:00* Test Item Value Reference Range Interpretation Comments Mean Corpuscular Hemoglobin Concent (test code = 786-4) 31.2 31-35 [facility] CampusRed Cell Distribution Kecen1778-50-82 06:24:00* Test Item Value Reference Range Interpretation Comments Red Cell Distribution Width (test code = 38915-9) 13.8 11.7 -14.4 [facility] CampusPlatelet Efrmf3138-99-79 06:24:00* Test Item Value Reference Range Interpretation Comments Platelet Count (test code = 777-3) 191 140-360 [facility] CampusNeutrophils (%) (Auto)2019-07-10 06:24:00 * Test Item Value Reference Range Interpretation Comments Neutrophils (%) (Auto) (test code = 27053-3) 61.6 38.7-80.0 [facility] [...] Comments Lymphocytes # (Auto) (test code = 09858-3) 2.2 1.0-3.2 [facility] [...] = Absolute Immature Granulocyte (auto) 0.02 0-0.1 [facility]er[facility] plasma magnesium measurement (mass/volume)2019-07-10 05:32:00* Test Item Value Reference Range Interpretation Comments Magnesium Level (test code = 67026-0) 1.8 1.3-2.1 [facility] Hospitaler[facility] plasma magnesium measurement (mass/volume)2019-07-10 05:32:00* Test Item Value Reference Range Interpretation Comments Magnesium Level (test code = 58287-1) 1.8 1.3-2.1 [facility] Hospitalerum or plasma magnesium measurement (mass/volume)2019-07-10 05:32:00* Test Item Value Reference Range Interpretation Comments Magnesium Level (test code = 01535-4) 1.8 1.3-2.1 [facility] Hospitalerum or plasma magnesium measurement (mass/volume)2019-07-10 05:32:00* Test Item Value Reference Range Interpretation Comments Magnesium Level (test code = 34693-3) 1.8 1.3-2.1 [facility] Hospitaler[facility] or plasma magnesium measurement (mass/volume)2019-07-10 05:32:00* Test Item Value Reference Range Interpretation Comments Magnesium Level (test code = 02753-5) 1.8 1.3-2.1 [facility] Hospitalerum or plasma magnesium measurement (mass/volume)2019-07-10 05:32:00* Test Item Value Reference Range Interpretation Comments Magnesium Level (test code = 76883-6) 1.8 1.3-2.1 [facility] Hospitalerum or plasma magnesium measurement (mass/volume)2019-07-10 05:32:00* Test Item Value Reference Range Interpretation Comments Magnesium Level (test code = 12102-4) 1.8 1.3-2.1 [facility] Hospitalerum or plasma magnesium measurement (mass/volume)2019-07-10 05:32:00* Test Item Value Reference Range Interpretation Comments Magnesium Level (test code = 70387-7) 1.8 1.3-2.1 [facility] Hospitalerum or plasma magnesium measurement (mass/volume)2019-07-10 05:32:00* Test Item Value Reference Range Interpretation Comments Magnesium Level (test code = 81308-1) 1.8 1.3-2.1 [facility] Hospitaler[facility] or plasma magnesium measurement (mass/volume)2019-07-10 05:32:00* Test Item Value Reference Range Interpretation Comments Magnesium Level (test code = 67258-3) 1.8 1.3-2.1 [facility] Hospitaler[facility] or plasma magnesium measurement (mass/volume)2019-07-10 05:32:00* Test Item Value Reference Range Interpretation Comments Magnesium Level (test code = 28968-1) 1.8 1.3-2.1 [facility] CampusGLUBED2020-02-10 08:55:00* Test Item Value Reference Range Interpretation Comments GLUBED (test code = GLUBED) 122 mg/dL 74-106 H Performed by certified rough 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 [facility] QUBALB1921-84-63 08:43:00* Test Item Value Reference Range Interpretation Comments GLUBED (test code = GLUBED) 140 mg/dL 74-106 H Performed by certified rough 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 [facility] - XR SHOULDER 1 V OW8019-88-66 13:41:00 FAX: Jg Astudillo MD [phone] Isabella: St: REG FAX: Raphael VillalbaJason sanchezRubén JUNG [phone] Name: BREE LINDSAY [facility] : 1975 Age/S: 43/M [address] [place] [address] Unit #: [id number] Loc: [place] [address] Phys: Jg Astudillo MD Acct: [id number] Dis Date: Status: REG CLI PHONE #: [phone] Exam Date: 03/02/2019 1333 FAX #: [phone] Reason: PICC PLACEMENT EXAMS: CPT CODE: [id number] XR SHOULDER 1 [place] [address] 1 VIEW LEFT SHOULDER HISTORY: PICC line pl acement.. Left upper extremity PICC line present. Catheter tip pr ojects over the level of the inferior 3rd of the SVC. END IMPRESSION SL: [id number] at 1341 Reported and sig lizette by: Yusuf Burgos M.D. CC: Jg Astudillo MD; Zak Beckman DO Technologist: Ariane Xiong RT(R) Trnscrd Date/Time/By: 03/02/2019 (7895) : By: MilaRTB Orig Print D/T: S: 03/02/2019 (2529) PAGE 1 Signed Report [id number] 08:06:00* Test Item Value Reference Range Interpretation Comments GLUBED (test code = GLUBED) 224 mg/dL 74-106 H Performed by certified rough 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 [facility] SOOFYM6583-99-25 22:57:00* Test Item Value Reference Range Interpretation Comments GLUBED (test code = GLUBED) 62 mg/dL 74-106 L Performed by certified rough 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 [facility] UPYYLP5112-67-17 18:14:00* Test Item Value Reference Range Interpretation Comments GLUBED (test code = GLUBED) 158 mg/dL 74-106 H Performed by certified rough 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 [facility] NMDKCE3084-64-28 11:43:00* Test Item Value Reference Range Interpretation Comments GLUBED (test code = GLUBED) 123 mg/dL 74-106 H Performed by certified rough 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 [facility] BASIC METABOLIC VJBKY3880-59-66 11:04:00* Test Item Value Reference Range Interpretation [...] CA) 8.5 mg/dL 8.5-10.1 N BASIC METABOLIC XDVTW4098-76-74 10:55:00* Test Item Value Reference Range Interpretation [...] code = CA) mg/dL 8.5-10.1 CBC W/AUTO RABZ0112-82-29 10:13:00* Test Item Value Reference Range Interpretation [...] code = NRBC#) 0.00 K/mm3 0.0-0.1 N CJHAKC6159-71-06 08:19:00* Test Item Value Reference Range Interpretation Comments GLUBED (test code = GLUBED) 81 mg/dL 74-106 N Performed by certified rough 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 [facility] GRXUAE4767-91-10 22:30:00* Test Item Value Reference Range Interpretation Comments GLUBED (test code = GLUBED) 243 mg/dL 74-106 H Performed by certified rough 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 [facility] OLYQSF3655-90-46 17:17:00* Test Item Value Reference Range Interpretation Comments GLUBED (test code = GLUBED) 91 mg/dL 74-106 N Performed by certified rough 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 [facility] BLOOD UREA VFOUBPSJ1506-39-31 13:49:00* Test Item Value Reference Range Interpretation Comments BLOOD UREA NITROGEN (test code = BUN) 8 mg/dL 7-18 N 2 PHELBS GONE UP AND TRIED TO DRAW BLOOD PT SAID COME BACKINFORMED PAIGE LIU E4812 V.LAB.2 02/19/19 1037 PIKUKUKQXA6897-18-08 13:49:00* Test Item Value Reference Range Interpretation Comments CREATININE (test code = CREAT) 0.90 mg/dL 0.7-1.3 N 2 PHELBS GONE UP AND TRIED TO DRAW BLOOD PT SAID COME BACKINFORMED PAIGE LIU E4812 V.LAB.[facility] 02/19/19 1037 CBC W/AUTO [id number] 13:02:00* Test Item Value Reference Range Interpretation [...] PT TO COME BACK LATER NOTIFIED PAIGE LUCERO.KP211/23/19 6676TKMNAM9144-61-66 11:50:00* Test Item Value Reference Range Interpretation Comments GLUBED (test code = GLUBED) 147 mg/dL 74-106 H Performed by certified rough 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 [facility] KUUKII4641-19-98 10:37:00* Test Item Value Reference Range Interpretation Comments GLUBED (test code = GLUBED) 97 mg/dL 74-106 N Performed by certified rough 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 [facility] TVPPOW1838-43-81 21:43:00* Test Item Value Reference Range Interpretation Comments GLUBED (test code = GLUBED) 162 mg/dL 74-106 H Performed by certified rough 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 [facility] BUXVSU0543-90-21 16:06:00* Test Item Value Reference Range Interpretation Comments GLUBED (test code = GLUBED) 98 mg/dL 74-106 N Performed by certified rough 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 [facility] - XR CHEST 1 V7099-09-06 14:36:00 FAX: Olegario Diaz MD [phone] Isabella: B St: ADM FAX: Iris Liao [phone] FAX: Riley Zavala DO [phone] Name: BREE LINDSAY [facility] : 1975 Age/S: 43/M [address] Unit #: [id number] Loc: V.3070 [place] [address] Phys: Iris Liao CHILD CARE CENTER ADMINISTRATOR Acct: [id number] Dis Date: Status: ADM IN ONE #: [phone] Exam Date: 02/18/2019 1339 FAX #: [phone] Reason: PICC TIP CONFIRMATION EXAMS: CPT CODE: [id number] XR CHEST 1 V 39786 REASON FOR EXAM: PICC TIP CONFIRMATION Exam [...] new finding from the prior exam. Location: [facility] Electronically Signed by Mulugeta Espinoza MD on at 1436 Reported and signed by: Mulugeta Espinoza MD CC: Olegario Diaz MD; Iris Liao CHILD CARE CENTER ADMINISTRATOR; Riley Beckman DO Technologist: Ngozi Lombardo RT(R); Lucie Martinez(R) [facility] Date/Time/By: 01/29 (1436) : By: [email or web address] Orig Print D/T: S: 02/18/2019 (6838) PAGE 1 Signed Report [id number] 12:20:00* Test Item Value Reference Range Interpretation Comments GLUBED (test code = GLUBED) 141 mg/dL 74-106 H Performed by certified rough 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 [facility] YAAXKI7039-93-02 07:15:00* Test Item Value Reference Range Interpretation Comments GLUBED (test code = GLUBED) 129 mg/dL 74-106 H Performed by certified rough 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 [facility] KFDYPT6763-70-87 00:21:00* Test Item Value Reference Range Interpretation Comments GLUBED (test code = GLUBED) 166 mg/dL 74-106 H Performed by certified rough 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 [facility] QWSYNR9718-02-26 20:50:00* Test Item Value Reference Range Interpretation Comments GLUBED (test code = GLUBED) 194 mg/dL 74-106 H Performed by certified rough 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 [facility] CDAMCGJLEP2705-90-55 18:19:00* Test Item Value Reference Range Interpretation Comments VANCOMYCIN (test code = VANCO) 25.9 UG/ML 5.0-45.0 N [id number] 16:41:00* Test Item Value Reference Range Interpretation Comments GLUBED (test code = GLUBED) 223 mg/dL 74-106 H Performed by certified rough 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 [facility] [id number] 13:22:00* Test Item Value Reference Range Interpretation Comments GLUBED (test code = GLUBED) 95 mg/dL 74-106 N Performed by certified rough 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 [facility] [id number] 13:22:00* Test Item Value Reference Range Interpretation Comments GLUBED (test code = GLUBED) 61 mg/dL 74-106 L Performed by certified rough 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 [facility] [id number] 13:22:00* Test Item Value Reference Range Interpretation Comments GLUBED (test code = GLUBED) 32 mg/dL 74-106 LL Test performed as P.O.C. by nursing staff.Performed by certified rough 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 [facility] [id number] 13:22:00* Test Item Value Reference Range Interpretation Comments GLUBED (test code = GLUBED) 28 mg/dL 74-106 LL Test performed as P.O.C. by nursing staff.Performed by certified rough 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~ [id number] 11:50:00* Test Item Value Reference Range Interpretation Comments GLUBED (test code = GLUBED) 104 mg/dL 74-106 N Performed by certified rough 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 [facility] CBC W/MANUAL [id number] 09:27:00* Test Item Value Reference Range Interpretation [...] code = IMMAT) 0 % 0-0 N [id number] 07:51:00* Test Item Value Reference Range Interpretation Comments GLUBED (test code = GLUBED) 244 mg/dL 74-106 H Performed by certified rough 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 [facility] BASIC METABOLIC [id number] 07:23:00* Test Item Value Reference Range Interpretation [...] CA) 7.9 mg/dL 8.5-10.1 L BASIC METABOLIC [id number] 07:13:00* Test Item Value Reference Range Interpretation [...] code = CA) mg/dL 8.5-10.1 CBC W/MANUAL [id number] 07:10:00* Test Item Value Reference Range Interpretation [...] MORPHOLOGY (test code = PLTMORPH) CBC W/MANUAL [id number] 07:10:00* Test Item Value Reference Range Interpretation [...] MORPHOLOGY (test code = PLTMORPH) CBC W/MANUAL [id number] 07:10:00* Test Item Value Reference Range Interpretation [...] MORPHOLOGY (test code = PLTMORPH) CBC W/MANUAL [id number] 07:09:00* Test Item Value Reference Range Interpretation [...] MORPHOLOGY (test code = PLTMORPH) CBC W/MANUAL [id number] 07:09:00* Test Item Value Reference Range Interpretation [...] MORPHOLOGY (test code = PLTMORPH) SED RATE [id number] 21:42:00* Test Item Value Reference Range Interpretation Comments SED RATE MEIRREN (test code = SEDW) 76 mm/hr 0-15 H SED [id number] 21:42:00* Test Item Value Reference Range Interpretation Comments SED RATE (test code = SEDW) 76 mm/hr 0-15 H WINTROBE METHOD: NORMAL RANGE FOR MEN: 0-9 MM/HR WOMAN: 0-20 MM/HR [id number] 20:54:00* Test Item Value Reference Range Interpretation Comments GLUBED (test code = GLUBED) 345 mg/dL 74-106 H Performed by certified rough 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 [facility] [id number] 16:36:00* Test Item Value Reference Range Interpretation Comments GLUBED (test code = GLUBED) 37 mg/dL 74-106 LL Performed by certified rough 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 [facility] [id number] 16:30:00* Test Item Value Reference Range Interpretation Comments GLUBED (test code = GLUBED) 94 mg/dL 74-106 N Performed by certified rough 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 [facility] [id number] 12:04:00* Test Item Value Reference Range Interpretation Comments GLUBED (test code = GLUBED) 236 mg/dL 74-106 H Performed by certified rough 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 [facility] CBC W/MANUAL [id number] 08:49:00* Test Item Value Reference Range Interpretation [...] IMMAT) 0 % 0-0 N BASIC METABOLIC [id number] 08:29:00* Test Item Value Reference Range Interpretation [...] CA) 7.9 mg/dL 8.5-10.1 L CBC W/MANUAL [id number] 08:09:00* Test Item Value Reference Range Interpretation [...] MORPHOLOGY (test code = PLTMORPH) CBC W/MANUAL [id number] 08:09:00* Test Item Value Reference Range Interpretation [...] MORPHOLOGY (test code = PLTMORPH) CBC W/MANUAL [id number] 08:09:00* Test Item Value Reference Range Interpretation [...] MORPHOLOGY (test code = PLTMORPH) CBC W/MANUAL [id number] 08:09:00* Test Item Value Reference Range Interpretation [...] MORPHOLOGY (test code = PLTMORPH) CBC W/MANUAL [id number] 08:09:00* Test Item Value Reference Range Interpretation [...] PLTEST) PLATELET MORPHOLOGY (test code = PLTMORPH) [id number] 07:33:00* Test Item Value Reference Range Interpretation Comments GLUBED (test code = GLUBED) 315 mg/dL 74-106 H Performed by certified rough 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 [facility] [id number] 19:56:00* Test Item Value Reference Range Interpretation Comments GLUBED (test code = GLUBED) 90 mg/dL 74-106 N Performed by certified rough 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 [facility] [id number] 19:07:00* Test Item Value Reference Range Interpretation Comments GLUBED (test code = GLUBED) 107 mg/dL 74-106 H Performed by certified rough 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 [facility] [id number] 19:07:00* Test Item Value Reference Range Interpretation Comments GLUBED (test code = GLUBED) 49 mg/dL 74-106 LL Performed by certified rough 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 [id number] 17:50:00* Test Item Value Reference Range Interpretation Comments POTASSIUM (test code = K) 3.0 mmol/L 3.5-5.1 L RE SULT VERIFIED BY REPEAT ANALYSIS [id number] 17:08:00* Test Item Value Reference Range Interpretation Comments GLUBED (test code = GLUBED) 66 mg/dL 74-106 L Performed by certified rough 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 [facility] [id number] 16:57:00* Test Item Value Reference Range Interpretation Comments GLUBED (test code = GLUBED) 76 mg/dL 74-106 N Performed by certified rough 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 [facility] [id number] 13:11:00* Test Item Value Reference Range Interpretation Comments POTASSIUM (test code = K) 5.2 mmol/L 3.5-5.1 H [id number] 11:49:00* Test Item Value Reference Range Interpretation Comments GLUBED (test code = GLUBED) 81 mg/dL 74-106 N Performed by certified rough 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 [facility] [id number] 09:39:00* Test Item Value Reference Range Interpretation Comments GLUBED (test code = GLUBED) 78 mg/dL 74-106 N Performed by certified rough 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 [facility] - MRI LOW EXT W/O CONT [id number] 09:36:00 FAX: Olegario Diaz MD [phone] [place]: B St: ADM FAX: Heavenly Kerr [facility] [phone] FAX: Riley Zavala DO [phone] Name: BREE LINDSAY [facility] : 1975 Age/S: 43/M [address] Unit #: [id number] Loc: V.30[address] [place] [address] Phys: Heavenly Null DPM Acct: [id number] Dis Date: Status: ADM IN ONE #: [phone] Exam Date: 02/15/2019 0859 FAX #: [phone] Reason: cellulitis EXAMS: CPT CODE: [id number] MR [place] L[place] EXT W/[place] [address] HISTORY: Cellu litis TECHNIQUE: Sagittal T1, sagittal [...] organized fluid collection is se en. at 0935 Reported and signed by: Mulugeta Espinoza MD CC: Maribel Diaz MD; Heavenly Null DPM; Riley Beckman DO Technologist: Lisy Mendoza)(MR) Trnscrd Date/Time/By: 02/15/2019 (1599) : By: [email or web address] Orig Print D/T: S: 02/15/2019 (0939) PAGE 1 Signed Report [id number] 07:22:00* Test Item Value Reference Range Interpretation Comments GLUBED (test code = GLUBED) 57 mg/dL 74-106 L Performed by certified rough 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 [facility] BASIC METABOLIC [id number] 05:15:00* Test Item Value Reference Range Interpretation Comments SODIUM (test code = NA) 136 mmol/L 136-145 N POTASSIUM (test code = K) 2.7 mmol/L 3.5-5.1 LL Re sults called to [id number] by DOT 02/15/19 0515Critical results verified and [...] CA) 8.3 mg/dL 8.5-10.1 L C REACTIVE [id number] 04:21:00* Test Item Value Reference Range Interpretation Comments C REACTIVE PROTEIN (test code = CRP) 27.10 mg/dL 0-0.3 H CBC W/MANUAL [id number] 04:05:00* Test Item Value Reference Range Interpretation [...] IMMAT) 0 % 0-0 N CBC W/MANUAL [id number] 03:30:00* Test Item Value Reference Range Interpretation [...] PLTEST) PLATELET MORPHOLOGY (test code = PLTMORPH) [id number] 20:26:00* Test Item Value Reference Range Interpretation Comments GLUBED (test code = GLUBED) 151 mg/dL 74-106 H Performed by certified rough 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 [facility] [id number] 17:12:00* Test Item Value Reference Range Interpretation Comments GLUBED (test code = GLUBED) 124 mg/dL 74-106 H Performed by certified rough 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 [facility] [id number] 17:07:00* Test Item Value Reference Range Interpretation Comments GLUBED (test code = GLUBED) 81 mg/dL 74-106 N Performed by certified rough 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 [facility] [id number] 12:13:00* Test Item Value Reference Range Interpretation Comments GLUBED (test code = GLUBED) 95 mg/dL 74-106 N Performed by certified rough 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 [facility] CBC W/MANUAL [id number] 08:15:00* Test Item Value Reference Range Interpretation [...] code = IMMAT) 0 % 0-0 N [id number] 07:18:00* Test Item Value Reference Range Interpretation Comments GLUBED (test code = GLUBED) 195 mg/dL 74-106 H Performed by certified rough 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 [facility] BASIC METABOLIC [id number] 07:16:00* Test Item Value Reference Range Interpretation [...] code = CA) 8.4 mg/dL 8.5-10.1 L [id number] 07:16:00* Test Item Value Reference Range Interpretation Comments MAGNESIUM (test code = MAG) 1.7 mg/dL 1.8-2.4 L CBC W/MANUAL [id number] 06:58:00* Test Item Value Reference Range Interpretation [...] MORPHOLOGY (test code = PLTMORPH) CBC W/MANUAL [id number] 06:58:00* Test Item Value Reference Range Interpretation [...] MORPHOLOGY (test code = PLTMORPH) CBC W/MANUAL [id number] 06:58:00* Test Item Value Reference Range Interpretation [...] MORPHOLOGY (test code = PLTMORPH) CBC W/MANUAL [id number] 06:58:00* Test Item Value Reference Range Interpretation [...] MORPHOLOGY (test code = PLTMORPH) CBC W/MANUAL [id number] 06:58:00* Test Item Value Reference Range Interpretation [...] MORPHOLOGY (test code = PLTMORPH) BASIC METABOLIC [id number] 06:56:00* Test Item Value Reference Range Interpretation [...] CALCIUM (test code = CA) mg/dL 8.5-10.1 [id number] 06:56:00* Test Item Value Reference Range Interpretation Comments MAGNESIUM (test code = MAG) mg/dL 1.8-2.4 [id number] 20:42:00* Test Item Value Reference Range Interpretation Comments GLUBED (test code = GLUBED) 261 mg/dL 74-106 H Performed by certified rough 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 [facility] CBC W/MANUAL [id number] 10:55:00* Test Item Value Reference Range Interpretation [...] MORPHOLOGY (test code = PLTMORPH) NORMAL URINALYSIS [id number] 10:38:00* Test Item Value Reference Range Interpretation [...] Clean Catch- XR FOOT 3 + V [id number] 10:33:00 Name: DAISHABREE Mendoza [facility] : 1975 Age/S:43 /M [address] [facility] Unit#:[id number] Loc: [place], [place] [address] Phys: Chandan Cage MD Dis Date: PHONE #: [phone] Status: REG ER FAX #: [phone] Exam Date: 02/13/2019 Re ason: left foot swelling EXAMS: CPT CODE: [id number] XR FOOT 3 + [place] [address] CLINICAL HISTORY: left foot swelling TECHNIQUE: AP, [...] but no acute underlying bony injury. Location: [facility] at 1033 Reported and signed by: Mulugeta Espinoza MD CC: Tracy Cage MD; Riley Beckman DO Technologist: Stone Sadler RT(R)(CT) Trnsc rpt Data: 02/13/2019 (1033) [id number].SDR.RR31 Orig Print D/T: S : 02/13/2019 (1035) PAGE 1 Signed Report LACTIC [id number] 10:28:00* Test Item Value Reference Range Interpretation Comments LACTIC ACID (test code = LACT) 1.6 MMOL/L 0.4-1.9 N BASIC METABOLIC [id number] 10:28:00* Test Item Value Reference Range Interpretation [...] CA) 8.7 mg/dL 8.4-10.2 N HEPATIC FUNCTION [id number] 10:28:00* Test Item Value Reference Range Interpretation [...] code = ALKP) 120 U/L 38-126 N [id number] 10:28:00* Test Item Value Reference Range Interpretation Comments TROPONIN-I (test code = TROPI) <0.015 ng/mL 0.00-0.056 N URINALYSIS [id number] 10:20:00* Test Item Value Reference Range Interpretation [...] HPF NONE Urine Source? Clean CatchBASIC METABOLIC [id number] 10:19:00* Test Item Value Reference Range Interpretation [...] CA) 8.7 mg/dL 8.4-10.2 N HEPATIC FUNCTION [id number] 10:19:00* Test Item Value Reference Range Interpretation [...] TOTAL (test code = ALKP) IUnit/L 45-117 [id number] 10:19:00* Test Item Value Reference Range Interpretation Comments TROPONIN-I (test code = TROPI) ng/mL 0-0.045 CBC W/MANUAL [id number] 10:13:00* Test Item Value Reference Range Interpretation [...] MORPHOLOGY (test code = PLTMORPH) CBC W/MANUAL [id number] 10:02:00* Test Item Value Reference Range Interpretation [...] MORPHOLOGY (test code = PLTMORPH) CBC W/MANUAL [id number] 10:02:00* Test Item Value Reference Range Interpretation [...] MORPHOLOGY (test code = PLTMORPH) CBC W/MANUAL [id number] 10:02:00* Test Item Value Reference Range Interpretation [...] MORPHOLOGY (test code = PLTMORPH) CBC W/MANUAL [id number] 10:02:00* Test Item Value Reference Range Interpretation [...] code = PLTMORPH) - XR CHEST 1 [id number] 09:56:00 Name: BREE LINDSAY [facility] : 1975 Age/S:43 /M [address] [facility] Unit#:[id number] Loc: [place] [address] Phys: Tracy Cage MD Dis Date: PHONE #: [phone] Status: REG ER FAX #: [phone] Exam Date: 02/13/2019 Reason: CODE SEPSIS EXAMS: CPT CODE: [id number] XR CHEST 1 V 34012 REASON FOR EXAM: CODE SEPSIS Exam Order [...] cholecystectomy. IMPRESSION: No acute cardiopulmonary process. Location: [facility] Elect ronically Signed by Mulugeta Espinoza MD on 02/13/2019 at 0956 Reported and signed by: Mulugeta Espinoza MD CC: Tracy Cage MD; Keeley Beckman DO Technologist: Stone Sadler RT(R)(CT) Trnscrpt Data: 02/13/2019 (0956) [id number] Orig Print D/T: S: 02/13/2019 (0947) PAGE 1 Signed Report [id number] 16:17:00* Test Item Value Reference Range Interpretation Comments GLUBED (test code = GLUBED) 187 mg/dL 74-106 H Performed by certified rough 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 [facility] [id number] 11:57:00* Test Item Value Reference Range Interpretation Comments GLUBED (test code = GLUBED) 147 mg/dL 74-106 H Performed by certified rough 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 [facility] [id number] 07:34:00* Test Item Value Reference Range Interpretation Comments GLUBED (test code = GLUBED) 110 mg/dL 74-106 H Performed by certified rough 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 [facility] CBC W/MANUAL [id number] 05:59:00* Test Item Value Reference Range Interpretation [...] IMMAT) 0 % 0-0 N BASIC METABOLIC [id number] 05:25:00* Test Item Value Reference Range Interpretation Comments SODIUM (test code = NA) 138 mmol/L 136-145 N POTASSIUM (test code = K) 2.7 mmol/L 3.5-5.1 Re sults called to [id number] by DOT 02/12/19 0525Critical results verified and [...] CA) 8.4 mg/dL 8.5-10.1 L CBC W/MANUAL [id number] 05:04:00* Test Item Value Reference Range Interpretation [...] MORPHOLOGY (test code = PLTMORPH) CBC W/MANUAL [id number] 05:04:00* Test Item Value Reference Range Interpretation [...] MORPHOLOGY (test code = PLTMORPH) CBC W/MANUAL [id number] 05:04:00* Test Item Value Reference Range Interpretation [...] MORPHOLOGY (test code = PLTMORPH) CBC W/MANUAL [id number] 05:04:00* Test Item Value Reference Range Interpretation [...] MORPHOLOGY (test code = PLTMORPH) CBC W/MANUAL [id number] 05:04:00* Test Item Value Reference Range Interpretation [...] interpreted taking into account the patients history. [id number] 19:42:00* Test Item Value Reference Range Interpretation Comments GLUBED (test code = GLUBED) 131 mg/dL 74-106 H Performed by certified rough 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 [facility] LACTIC [id number] 19:38:00* Test Item Value Reference Range Interpretation Comments LACTIC ACID (test code = LACT) 0.7 mmol/L 0.4-1.9 N [id number] 18:44:00* Test Item Value Reference Range Interpretation Comments GLUBED (test code = GLUBED) 129 mg/dL 74-106 H Performed by certified rough 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 [facility] [id number] 16:34:00* Test Item Value Reference Range Interpretation Comments GLUBED (test code = GLUBED) 66 mg/dL 74-106 L Performed by certified rough 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 [facility] [id number] 12:07:00* Test Item Value Reference Range Interpretation Comments GLUBED (test code = GLUBED) 285 mg/dL 74-106 H Performed by certified rough 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 [facility] - XR CHEST 1 [id number] 08:53:00 FAX: Faith Cook MD [phone] [place]: St: [facility] FAX: Riley Zavala DO [phone] Name: BREE LINDSAY [facility] : 1975 Age/S: 43/M [address] [facility] Unit #: [id number] Loc: V.[address] [place] [address] Phys: Faith Roy MD Acct: [id number] Dis Date: Status: ADM IN PHONE #: [phone] Exam Date: 02/11/2019 08 FAX #: [phone] Reason: Leukocytosis EXAMS: CPT CODE: [id number] XR CHEST 1 V 77646 HISTORY: Leukocytosis. COMPARISON: January 12, 2018. Location: [facility]. No acute infiltrates, effusion or congestion is noted. Mild cardiomegaly. IMPRESSION: No acute infiltrates, effusion or congestion. at 0853 Reported and signed by: Alexandr Pacheco M.D. CC: Faith Roy MD; Riley Beckman DO Technologist: BERNABE Diez Trnscrd Date/Time/By: 02/11/2019 (0853) : By: [email or web address] Orig Print D/T: S: 02/11/2019 (0899) PAGE 1 Signed Report GLUBED 2019-02-11 07:52:00* Test Item Value Reference Range Interpretation Comments GLUBED (test code = GLUBED) 293 mg/dL 74-106 H Performed by certified rough 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 [facility] CBC W/MANUAL [id number] 06:45:00* Test Item Value Reference Range Interpretation [...] IMMAT) 0 % 0-0 N BASIC METABOLIC [id number] 06:37:00* Test Item Value Reference Range Interpretation [...] CA) 8.6 mg/dL 8.5-10.1 N BASIC METABOLIC [id number] 06:31:00* Test Item Value Reference Range Interpretation [...] code = CA) mg/dL 8.5-10.1 CBC W/MANUAL [id number] 06:18:00* Test Item Value Reference Range Interpretation [...] MORPHOLOGY (test code = PLTMORPH) CBC W/MANUAL [id number] 06:18:00* Test Item Value Reference Range Interpretation [...] MORPHOLOGY (test code = PLTMORPH) CBC W/MANUAL [id number] 06:18:00* Test Item Value Reference Range Interpretation [...] MORPHOLOGY (test code = PLTMORPH) CBC W/MANUAL [id number] 06:18:00* Test Item Value Reference Range Interpretation [...] MORPHOLOGY (test code = PLTMORPH) CBC W/MANUAL [id number] 06:18:00* Test Item Value Reference Range Interpretation [...] PLATELET MORPHOLOGY (test code = PLTMORPH) URINALYSIS [id number] 02:01:00* Test Item Value Reference Range Interpretation [...] BE COLLECTED BY NURSEDRUGS OF ABUSE SCREEN [id number] 02:01:00* Test Item Value Reference Range Interpretation [...] Source? VoidedSAMPLE TO BE COLLECTED BY NURSEURINALYSIS [id number] 01:45:00* Test Item Value Reference Range Interpretation [...] BE COLLECTED BY NURSEDRUGS OF ABUSE SCREEN [id number] 01:45:00* Test Item Value Reference Range Interpretation [...] 2143Urine Source? VoidedSAMPLE TO BE COLLECTED BY [id number] 23:31:00* Test Item Value Reference Range Interpretation Comments GLUBED (test code = GLUBED) 223 mg/dL 74-106 H Performed by certified rough 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 [facility] [id number] 18:09:00* Test Item Value Reference Range Interpretation Comments GLUBED (test code = GLUBED) 201 mg/dL 74-106 H Performed by certified rough 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 [facility] [id number] 11:27:00* Test Item Value Reference Range Interpretation Comments GLUBED (test code = GLUBED) 291 mg/dL 74-106 H Performed by certified rough 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 [facility] [id number] 08:25:00* Test Item Value Reference Range Interpretation Comments GLUBED (test code = GLUBED) 288 mg/dL 74-106 H Performed by certified rough 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 [facility] - XR ABDOMEN AP 1 [id number] 08:01:00 FAX: Bobby Self MD [place]: B St: ADM FAX: Riley Zavala DO [phone] Name: BREE LINDSAY [facility] : 1975 Age/S: 43/M [address] [facility] Unit #: [id number] Loc: V.[address] [place] [address] Phys: Bobby Self MD Acct: [id number] Dis Date: Status: ADM IN PHONE #: [phone] Exam Date: 02/10/2019804 FAX #: [phone] Reason: abdominal pain nausea and vomiting EXAMS: CPT CODE: [id number] XR ABDOMEN AP 1 V 67470 HISTORY: abdominal pain nausea and vomiting TECHNIQUE: [...] DO Technologist: RT LATA(R) Trnscrd Date/Time/By: 02/10/2019 (0801) : By: [email or web address] Dimitry g Print D/T: S: 02/10/2019 (1482) PAGE 1 Signed Report PROCALCITONIN (PCT) 2019-02-10 [...] into account the patients history. BASIC METABOLIC [id number] 00:47:00* Test Item Value Reference Range Interpretation [...] CA) 9.1 mg/dL 8.5-10.1 N HEPATIC FUNCTION [id number] 00:47:00* Test Item Value Reference Range Interpretation [...] reference range due to change in reagent. [id number] 00:47:00* Test Item Value Reference Range Interpretation Comments LIPASE (test code = LIP) < 10 U/L 73.0-393.0 L CBC W/O [id number] 00:11:00* Test Item Value Reference Range Interpretation [...] code = MPV) 9.7 fL 6.7-11.0 N [id number] 07:24:00* Test Item Value Reference Range Interpretation Comments GLUBED (test code = GLUBED) 269 mg/dL 74-106 H Performed by certified rough 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 [facility] [id number] 20:19:00* Test Item Value Reference Range Interpretation Comments GLUBED (test code = GLUBED) 199 mg/dL 74-106 H Performed by certified rough 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 [facility] [id number] 16:56:00* Test Item Value Reference Range Interpretation Comments GLUBED (test code = GLUBED) 153 mg/dL 74-106 H Performed by certified rough 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 [facility] [id number] 11:42:00* Test Item Value Reference Range Interpretation Comments GLUBED (test code = GLUBED) 231 mg/dL 74-106 H Performed by certified rough 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 [facility] [id number] 08:17:00* Test Item Value Reference Range Interpretation Comments GLUBED (test code = GLUBED) 160 mg/dL 74-106 H Performed by certified rough 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 [facility] CBC W/AUTO [id number] 06:43:00* Test Item Value Reference Range Interpretation [...] NRBC#) 0.00 K/mm3 0.0-0.1 N BASIC METABOLIC [id number] 06:43:00* Test Item Value Reference Range Interpretation [...] CA) 8.8 mg/dL 8.5-10.1 N BASIC METABOLIC [id number] 06:26:00* Test Item Value Reference Range Interpretation [...] (test code = CA) mg/dL 8.5-10.1 URINALYSIS [id number] 23:07:00* Test Item Value Reference Range Interpretation [...] Urine Source? Clean CatchDRUGS OF ABUSE SCREEN [id number] 23:07:00* Test Item Value Reference Range Interpretation [...] NEGATIVE <300 ng/mL Urine Source? Clean CatchURINALYSIS [id number] 22:44:00* Test Item Value Reference Range Interpretation [...] Urine Source? Clean CatchDRUGS OF ABUSE SCREEN [id number] 22:44:00* Test Item Value Reference Range Interpretation [...] <300 ng/mL Urine Source? Clean CatchBASIC METABOLIC [id number] 18:12:00* Test Item Value Reference Range Interpretation [...] CA) 10.0 mg/dL 8.5-10.1 N HEPATIC FUNCTION [id number] 18:12:00* Test Item Value Reference Range Interpretation [...] reference range due to change in reagent. [id number] 18:12:00* Test Item Value Reference Range Interpretation Comments LIPASE (test code = LIP) < 10 U/L 73.0-393.0 L BASIC METABOLIC [id number] 18:04:00* Test Item Value Reference Range Interpretation [...] code = CA) mg/dL 8.5-10.1 HEPATIC FUNCTION [id number] 18:04:00* Test Item Value Reference Range Interpretation [...] TOTAL (test code = ALKP) IUnit/L 45-117 [id number] 18:04:00* Test Item Value Reference Range Interpretation Comments LIPASE (test code = LIP) U/L 73.0-393.0 CBC W/O [id number] 18:00:00* Test Item Value Reference Range Interpretation [...] code = MPV) 10.1 fL 6.7-11.0 N [id number] 17:11:00* Test Item Value Reference Range Interpretation Comments GLUBED (test code = GLUBED) 108 mg/dL 74-106 H Performed by certified rough 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 [facility] [id number] 14:49:00 RUN DATE: 12/21/18 [place] - Lab PAGE 1 RUN TIME: 1449 Specimen Inqui ry RUN USER: INTERFACE PATIENT: BREE LINDSAY ACCT #: [id number] LOC: [facility] U #: [id number] AGE/SX: 43/M ROOM: [facility] RE12/16/18REG DR: Olegario Diaz MD : 75 BED: A DIS: 12/19/18 STATUS: DIS IN TLOC: SPEC #: [id number] RECD: 12/20/18 STATUS: SHAHRAM RE #: [id number] HUY: 12/18/18- SUBM DR: Sav Coffey MD ENTERED: 12/20/18 SP TYPE: GALLBLADD OTHR DR: Levi Natarajan i, MD, Shao-Chun DOORDERED: GROSS COPIES TO: Levi Lakhani MD [address] [place], [place] [id number] Sav Coffey MD [address] [place] [address] [place] [address] [place] [address] MARKERS: ABNORMAL TISSUE, GALLBL ADDER PROCEDURES: GROSS (12/21/18-1158) TISSUES: GALLBLADDER, NOS CLINICAL HISTORY COLLECTION DATE: 12/18/18 CHOLECYSTITIS FIN AL DIAGNOSIS Gallbladder, cholecystectomy: PATCHY MILD CHRONIC ACALCUL OUS CHOLECYSTITIS NEGATIVE FOR MALIGNANCY RRB/sm A 12315 CONTINUED ON NEXT PAGE RUN DATE : 12/21/18 [facility] Lab PAGE 2 RUN TIME: 1449 Specimen Inquiry RUN USER: INTERFACE SPEC #: [id number] PATIENT: BREE LINDSAY #V [id number] (Continued) MACROSCOPIC The specimen is r eceived [...] thickness. No foc al lesions are identified. Battery Hand tissue is submitted in a single violeta sette. GROSS PERFORMED AT [facility] [address] [place] [address] (p)[phone] MICROSCOPIC All of the stains, including any controls performed, st ain appropriately. MICROSCOPIC PERFORMED AT [facility] [address] [place] [address] (P) PERFORMING SITE Diagnosis performed at: [facility] [address] [id number] Signed ORLIN Irvin ON FILE Dino Patton MD 12/21/18 1449 END OF REPORT GLUBED 2018-12-19 11:45:00* Test Item Value Reference Range Interpretation Comments GLUBED (test code = GLUBED) 238 mg/dL 74-106 H Performed by certified rough 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 [facility] BASIC METABOLIC [id number] 08:28:00* Test Item Value Reference Range Interpretation [...] code = CA) 8.2 mg/dL 8.5-10.1 L [id number] 08:28:00* Test Item Value Reference Range Interpretation Comments MAGNESIUM (test code = MAG) 1.5 mg/dL 1.8-2.4 L BASIC METABOLIC [id number] 08:21:00* Test Item Value Reference Range Interpretation [...] CALCIUM (test code = CA) mg/dL 8.5-10.1 [id number] 08:21:00* Test Item Value Reference Range Interpretation Comments MAGNESIUM (test code = MAG) mg/dL 1.8-2.4 CBC W/AUTO [id number] 07:56:00* Test Item Value Reference Range Interpretation [...] DIFF REQUIRED (test code = MDIFF) NO [id number] 07:38:00* Test Item Value Reference Range Interpretation Comments GLUBED (test code = GLUBED) 277 mg/dL 74-106 H Performed by certified rough 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 [facility] [id number] 20:34:00* Test Item Value Reference Range Interpretation Comments GLUBED (test code = GLUBED) 165 mg/dL 74-106 H Performed by certified rough 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 [facility] [id number] 19:18:00* Test Item Value Reference Range Interpretation Comments GLUBED (test code = GLUBED) 203 mg/dL 74-106 H Performed by certified rough 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 [facility] BASIC METABOLIC [id number] 11:47:00* Test Item Value Reference Range Interpretation [...] 8.2 mg/dL 8.5-10.1 L PT IN SURGERY RN AXE8227 V.LAB.KP2 12/18/18 7714QZHKQY9236-22-32 11:42:00* Test Item Value Reference Range Interpretation Comments GLUBED (test code = GLUBED) 360 mg/dL 74-106 H Performed by certified rough 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 [facility] BASIC METABOLIC [id number] 11:41:00* Test Item Value Reference Range Interpretation [...] CA) mg/dL 8.5-10.1 PT IN SURGERY RN AQJ6183 V.LAB.KP2 12/18/18 0926CBC W/AUTO [id number] 11:11:00* Test Item Value Reference Range Interpretation [...] = MDIFF) NO PT IN SURGERY RN ISR9826 V.LAB.KP2 12/18/18 [id number] 03:55:00* Test Item Value Reference Range Interpretation Comments GLUBED (test code = GLUBED) 269 mg/dL 74-106 H Performed by certified rough 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 [facility] [id number] 23:58:00* Test Item Value Reference Range Interpretation Comments GLUBED (test code = GLUBED) 233 mg/dL 74-106 H Performed by certified rough 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 [facility] [id number] 09:16:00* Test Item Value Reference Range Interpretation Comments GLUBED (test code = GLUBED) 179 mg/dL 74-106 H Performed by certified rough 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 [facility] BASIC METABOLIC [id number] 06:40:00* Test Item Value Reference Range Interpretation Comments SODIUM (test code = NA) 141 mmol/L 136-145 N POTASSIUM (test code = K) 2.8 mmol/L 3.5-5.1 [facility] sults called to [id number] by V.LAB.WJC 12/17/18 0639Critical results verified and [...] code = CA) 8.3 mg/dL 8.5-10.1 L [id number] 06:40:00* Test Item Value Reference Range Interpretation Comments MAGNESIUM (test code = MAG) 1.6 mg/dL 1.8-2.4 L B-TYPE NATRIURETIC [id number] 06:34:00* Test Item Value Reference Range Interpretation Comments B-TYPE NATRIURETIC PEPTIDE (test code = BNP) 128.51 pgram/mL 0-100 H CBC W/AUTO [id number] 05:33:00* Test Item Value Reference Range Interpretation [...] code = NRBC#) 0.00 K/mm3 0.0-0.1 N [id number] 02:55:00* Test Item Value Reference Range Interpretation Comments GLUBED (test code = GLUBED) 102 mg/dL 74-106 N Performed by certified rough 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 [facility] [id number] 21:18:00* Test Item Value Reference Range Interpretation Comments GLUBED (test code = GLUBED) 224 mg/dL 74-106 H Performed by certified rough 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 [facility] [id number] 16:43:00* Test Item Value Reference Range Interpretation Comments GLUBED (test code = GLUBED) 158 mg/dL 74-106 H Performed by certified rough 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 [facility] DRUGS OF ABUSE SCREEN [id number] 14:45:00* Test Item Value Reference Range Interpretation [...] NEGATIVE <300 ng/mL DRUGS OF ABUSE SCREEN [id number] 14:24:00* Test Item Value Reference Range Interpretation [...] ng/mL - HEPA IMAG INCL GB W [id number] 14:14:00 FAX: Leia Kendrick Isabella: St: ADM FAX: Bobby Self MD FAX: Riley Zavala DO [phone] Name: BREE LINDSAY [facility] : 1975 Age/S: 43/M [address] Unit #: [id number] Loc: V.[address] [place] [address] Phys: Leia Kendrick MSN Acct: [id number] Dis Date: Status: ADM IN ONE #: [phone] Exam Date: 12/16/2018 1412 FAX #: [phone] Reason: recurrent n/v EXAMS: CPT CODE: [id number] HE PA IMAG INCL GB W PHA [phone] HISTORY: recur rent n/v EXAM: NUCLEAR MEDICINE [...] DO Technologist: ESAU ASHRAF Trnscrd Date/Time/By: 12/16/2018 (1416) : By: [email or web address] 1 Orig Print D/T: S: 12/16/2018 (1417) PAGE 1 Signed Report GLUBED 2018-12-16 11:12:00* Test Item Value Reference Range Interpretation Comments ADRIANA (test code = ADRIANA) 133 mg/dL 74-106 H Performed by certified rough 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 [facility] - US ABDOMEN [id number] 10:25:00 Name: BREE LINDSAY [facility] : 1975 Age/S: 43 / M [address] Unit #: [id number] Loc: [place] [address] Phys: Leia Kenrdick MSN Acct: [id number] Dis Date: Status: ADM IN PHONE #: [phone] Exam Date: 12/16/2018 09 FAX #: [phone] Reason: n/v EXAMS: CPT CODE: [id number] US ABDOMEN COMPLETE 05987 REASON FOR EXAM: n/v EXAM ORDER DATE: [...] 1 Signed Report (CONTINUED) Name: BREE LINDSAY [facility] : 1975 Age/S: 43 / M [address] Unit #: [id number] Loc: [place] [address] Phys: Leia Kendrick MSN Acct: [id number] Dis Date: Status: AD M IN PHONE #: [phone] Exam Date: 12/16 FAX #: [phone] Reason: n/v EXAMS: CPT CODE: [id number] US ABDOMEN COMPLETE 76 700 <Continued> Left [...] Riley Beckman DO Technologist: NOEMY OLVERA RT(R),RDMS Trnlab Date/Time: 12/16/2018 (1022) t.SDR.RR31 Orig Print D/T: S: 12/16/2018 (3535) Probe: PAGE 2 Signed Report [id number] 07:04:00* Test Item Value Reference Range Interpretation Comments GLUBED (test code = GLUBED) 177 mg/dL 74-106 H Performed by certified rough 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 [facility] URINALYSIS NBLQMHIM7928-90-00 00:25:00* Test Item Value Reference Range Interpretation [...] FEW A Urine Source? Clean CatchBASIC METABOLIC [id number] 00:22:00* Test Item Value Reference Range Interpretation [...] CA) 8.8 mg/dL 8.5-10.1 N HEPATIC FUNCTION [id number] 00:22:00* Test Item Value Reference Range Interpretation [...] reference range due to change in reagent. [id number] 00:22:00* Test Item Value Reference Range Interpretation Comments LIPASE (test code = LIP) < 10 U/L 73.0-393.0 L [id number] 00:22:00* Test Item Value Reference Range Interpretation Comments TROPONIN-I (test code = TROPI) <0.015 ng/mL 0-0.045 N BASIC METABOLIC [id number] 00:12:00* Test Item Value Reference Range Interpretation [...] code = CA) mg/dL 8.5-10.1 HEPATIC FUNCTION [id number] 00:12:00* Test Item Value Reference Range Interpretation [...] TOTAL (test code = ALKP) IUnit/L 45-117 [id number] 00:12:00* Test Item Value Reference Range Interpretation Comments LIPASE (test code = LIP) U/L 73.0-393.0 [id number] 00:12:00* Test Item Value Reference Range Interpretation Comments TROPONIN-I (test code = TROPI) ng/mL 0-0.045 CBC W/O [id number] 00:06:00* Test Item Value Reference Range Interpretation [...] MPV) 10.2 fL 6.7-11.0 N BASIC METABOLIC [id number] 08:09:00* Test Item Value Reference Range Interpretation [...] CA) 9.0 mg/dL 8.5-10.1 N HEPATIC FUNCTION [id number] 08:09:00* Test Item Value Reference Range Interpretation [...] reference range due to change in reagent. [id number] 08:09:00* Test Item Value Reference Range Interpretation Comments LIPASE (test code = LIP) < 10 U/L 73.0-393.0 L [id number] 08:09:00* Test Item Value Reference Range Interpretation Comments TROPONIN-I (test code = TROPI) <0.015 ng/mL 0-0.045 N BASIC METABOLIC [id number] 07:52:00* Test Item Value Reference Range Interpretation [...] code = CA) mg/dL 8.5-10.1 HEPATIC FUNCTION [id number] 07:52:00* Test Item Value Reference Range Interpretation [...] TOTAL (test code = ALKP) IUnit/L 45-117 [id number] 07:52:00* Test Item Value Reference Range Interpretation Comments LIPASE (test code = LIP) U/L 73.0-393.0 [id number] 07:52:00* Test Item Value Reference Range Interpretation Comments TROPONIN-I (test code = TROPI) ng/mL 0-0.045 CBC W/O [id number] 07:40:00* Test Item Value Reference Range Interpretation [...] = MPV) 10.5 fL 6.7-11.0 N POC-Glucose [id number] 17:19:00* Test Item Value Reference Range Interpretation Comments POC-Glucose Meter (test code = 1538) 266 mg/dL 70-110 H TESTED AT [address] [address] Lab Interpretation (test code = 09774-4) [facility]normal [facility] [id number] 17:19:00* Test Item Value Reference Range Interpretation Comments POC-GLUCOSE METER (BEAKER) (test code = 1538) 266 mg/dL 70-110 H TESTED AT [address] [address] ECG 12 [id number] 14:27:26Interface, External Ris In - 12/14/2018 2:27 PM CDTVentricular Rate 78 BPMAtrial Rate 78 BPMP-R Interval 168 msQRS Duration 80 msQ-T Interval 350 msQTC Calculation(Aristideszealex) 399 msP [place] 52 degreesR [place] -14 degreesT [place] 35 degreesNormal sinus rhythmNormal ECGNo previous ECGs availableConfirmed by MD MEGGAN, MARCELINO (190) on 12/14/2018 2:27:24 [facility] [id number] 12:17:00* Test Item Value Reference Range Interpretation Comments POC-GLUCOSE METER (BEAKER) (test code = 1538) 240 mg/dL 70-110 H TESTED AT [facility] [address] [facility] [address] POCT-GLUCOSE [id number] 08:12:00* Test Item Value Reference Range Interpretation Comments POC-GLUCOSE METER (BEAKER) (test code = 1538) 184 mg/dL 70-110 H TESTED AT [place] [id number] [facility] [address] Basic metabolic [id number] 06:18:00* Test Item Value Reference Range Interpretation [...] mg/dL 70-105 H Calcium (test code = 72467-2) 8.7 mg/dL 8.4-10.2 EGFR (test code = 63510-0) 87 mL/min/1.73 sq m ESTIMATED GFR IS NOT ACCURATE CREATININE CLEARANCE IN PREDICTING GLOMERULAR FILTRATION RATE. ESTIMATED GFR IS NOT APPLICABLE FOR DIALYSIS PATIENTS. Lab Interpretation (test code = 83447-9) [facility]normal [facility] 06:18:00* Test Item Value Reference Range Interpretation Comments Magnesium (test code = 06079-7) 1.6 mg/dL 1.6-2.6 Lab Interpretation (test code = 59555-4) Normal [facility]2019-09-[facility] 06:18:00* Test Item Value Reference Range Interpretation Comments Phosphorus (test code = 2777-1) 2.2 mg/dL 2.3-4.7 L Lab Interpretation (test code = 49317-9) Abnormal [facility] Center[facility]OSPHORUS2019-09-17 06:18:00* Test Item Value Reference Range Interpretation Comments PHOSPHORUS (BEAKER) (test code = 604) 2.2 mg/dL 2.3-4.7 L [id number] 06:18:00* Test Item Value Reference Range Interpretation Comments MAGNESIUM (BEAKER) (test code = 627) 1.6 mg/dL 1.6-2.6 BASIC METABOLIC [id number] 06:18:00* Test Item Value Reference Range Interpretation [...] PATIENTS. CBC with platelet count + automated gxeh3228-30-67 06:16:00* Test Item Value Reference Range Interpretation [...] clinical correlation required. MPV (test code = 73377-7) 10.4 fL 9.4-12.4 nRBC (test code = [...] % 0-1 Lab Interpretation (test code = 31293-2) Abnormal [facility] W/PLT COUNT & AUTO [id number] 06:16:00* Test Item Value Reference Range Interpretation [...] code = 2801) 0 % 0-1 POCT-GLUCOSE [id number] 21:15:00* Test Item Value Reference Range Interpretation Comments POC-GLUCOSE METER (BEAKER) (test code = 1538) 307 mg/dL 70-110 H Notified RN or MD Patient refused repeat test/TESTED AT [facility] [address] [facility] [address] Hemoglobin [id number] 19:48:00* Test Item Value Reference Range Interpretation Comments Hemoglobin A1C (test code = 4548-4) 8.4 % 4.3-6.1 H Lab Interpretation (test code = 21116-3) Abnormal [facility] [id number] 19:48:00* Test Item Value Reference Range Interpretation Comments HEMOGLOBIN A1C (BEAKER) (test code = 368) 8.4 % 4.3-6.1 H Lipid [id number] 16:17:00* Test Item Value Reference Range Interpretation Comments Triglycerides (test code = 2571-8) 101 mg/dL Cholesterol (test code = 2093-3) 151 mg/dL HDL (test code = 2085-9) 38 mg/dL LDL Calculated (test code = 06797-5) 93 mg/dL BESS (test code = BESS) Triglyceride Reference Range : Low Risk <150 Borderline 150-199 High Risk 200-499 Very High Risk >=500 Cholesterol Reference Range: Low Risk <200 Borderline 200-239 High Risk >240 HDL Cholesterol Reference Range: Low Risk >=60 High Risk <40 LDL Cholesterol Reference Range: Optimal <100 Near Optimal 100-129 Borderline 130-159 High 160-189 Very High >=190 [facility] CenterHepatic function [id number] 16:17:00* Test Item Value Reference Range Interpretation Comments Protein, Total (test code = 2885-2) 6.9 6.0- 8.3 gm/dL Albumin (test code = 10694-1) 3.9 g/dL 3.5-5 Total Bilirubin (test code = 1974-2) 0.5 mg/dL 0.2-1.2 Bilirubin, Direct (test code = 1967-7) 0.2 mg/dL 0.1-0.5 Alkaline Phosphatase (test code = 6768-6) 80 U/L 40-150 AST (test code = 1920-8) 18 U/L 5-34 ALT (test code = 1742-6) 15 U/L 6-55 Lab Interpretation (test code = 00032-3) Normal [facility] CenterLIPID [id number] 16:17:00* Test Item Value Reference Range Interpretation [...] High 160-189 Very High >=190 BASIC METABOLIC [id number] 16:17:00* Test Item Value Reference Range Interpretation [...] NOT APPLICABLE FOR DIALYSIS PATIENTS. HEPATIC FUNCTION [id number] 16:17:00* Test Item Value Reference Range Interpretation [...] U/L 6-55 CBC W/PLT COUNT & AUTO JHVQAUYYJKSP4740-38-45 16:07:00* Test Item Value Reference Range Interpretation [...] code = 2801) 0 % 0-1 POCT-GLUCOSE [id number] 16:01:00* Test Item Value Reference Range Interpretation Comments POC-GLUCOSE METER (BEAKER) (test code = 1538) 265 mg/dL 70-110 H TESTED AT [facility] [address] [facility] [address] POCT-GLUCOSE [id number] 12:34:00* Test Item Value Reference Range Interpretation Comments POC-GLUCOSE METER (BEAKER) (test code = 1538) 271 mg/dL 70-110 H TESTED AT [facility] [address] [facility] [address] Magnesium Zbxqk6995-35-81 18:51:00* Test Item Value Reference Range Interpretation Comments Magnesium Level (test code = 24501-1) 1.8 1.3-2.1 [facility] 18:51:00* Test Item Value Reference Range Interpretation Comments Lipase (test code = 3040-3) < 4 8-78 L [facility] CampusMagnesium Whqxa5154-91-22 18:51:00* Test Item Value Reference Range Interpretation Comments Magnesium Level (test code = 47382-0) 1.8 1.3-2.1 [facility]Lip[facility]2019-09-15 18:51:00* Test Item Value Reference Range Interpretation Comments Lipase (test code = 3040-3) < 4 8-78 L [facility] CampusMagn[facility] Jatht4335-13-42 18:51:00* Test Item Value Reference Range Interpretation Comments Magnesium Level (test code = 73396-1) 1.8 1.3-2.1 [facility]Lip[facility]2019-09-15 18:51:00* Test Item Value Reference Range Interpretation Comments Lipase (test code = 3040-3) < 4 8-78 L [facility]Lip[facility]2019-09-15 18:51:00* Test Item Value Reference Range Interpretation Comments Lipase (test code = 3040-3) < 4 8-78 L [facility] CampusBlowat[facility] Jtvrpgr1274-94-60 20:52:00* Test Item Value Reference Range Interpretation Comments Blood Culture (test code = 94374349) NO GROWTH AFTER 5 DAYS, FINAL REPORT [facility] Aqitdnp5352-27-43 20:52:00* Test Item Value Reference Range Interpretation Comments Blood Culture (test code = 03602853) NO GROWTH AFTER 5 DAYS, FINAL REPORT [facility] Tjrpxqi7889-87-40 20:52:00* Test Item Value Reference Range Interpretation Comments Blood Culture (test code = 59749617) NO GROWTH AFTER 5 DAYS, FINAL REPORT [facility] Tqedtxa6872-90-73 20:52:00* Test Item Value Reference Range Interpretation Comments Blood Culture (test code = 06363238) NO GROWTH AFTER 5 DAYS, FINAL REPORT [facility] Aupgwnq2253-41-72 15:19:00* Test Item Value Reference Range Interpretation Comments Bedside Glucose (test code = 96070-4) 261 70-120 H Meter ID: [id number] venture between [facility] Glucose 2018-11-25 15:19:00* Test Item Value Reference Range Interpretation Comments Bedside Glucose (test code = 95637-1) 261 70-120 H Meter ID: [id number] venture [facility] Glucose 2018-11-25 15:19:00* Test Item Value Reference Range Interpretation Comments Bedside Glucose (test code = 61774-5) 261 70-120 H Meter ID: [id number] venture between [facility] Glucose 2018-11-25 15:19:00* Test Item Value Reference Range Interpretation Comments Bedside Glucose (test code = 30078-2) 261 70-120 H Meter ID: [id number] [facility] CampusWhite Blood Count 2018-11-25 06:12:00* Test Item Value Reference Range Interpretation Comments White Blood Count (test code = 6690-2) 10.09 4.8-10.8 [facility] CampusRed Blood Awscm3982-54-11 06:12:00* Test Item Value Reference Range Interpretation Comments Red Blood Count (test code = 789-8) 3.20 4.3-5.7 L [facility] CampusHemoglobin2019-08-29 06:12:00* Test Item Value Reference Range Interpretation Comments Hemoglobin (test code = 69584-2) 9.0 14.0-18.0 L [facility] CampusHematocrit2019-08-29 06:12:00* Test Item Value Reference Range Interpretation Comments Hematocrit (test code = 4544-3) 28.1 38.2-49.6 L [facility] CampusMean Corpuscular Tujlhb1689-14-12 06:12:00* Test Item Value Reference Range Interpretation Comments Mean Corpuscular Volume (test code = 787-2) 87.8 81-99 [facility] CampusMean Corpuscular Neefzczuas1855-10-32 06:12:00* Test Item Value Reference Range Interpretation Comments Mean Corpuscular Hemoglobin (test code = 785-6) 28.1 28-32 [facility] CampusMean Corpuscular Hemoglobin Concent 2018-11-25 06:12:00* Test Item Value Reference Range Interpretation Comments Mean Corpuscular Hemoglobin Concent (test code = 786-4) 32.0 31-35 [facility] CampusRed Cell Distribution Ajgbg0469-11-79 06:12:00* Test Item Value Reference Range Interpretation Comments Red Cell Distribution Width (test code = 21536-2) 13.7 11.7 -14.4 [facility] CampusPlatelet Geiff5938-29-40 06:12:00* Test Item Value Reference Range Interpretation Comments Platelet Count (test code = 777-3) 185 140-360 [facility] CampusNeutrophils (%) (Auto)2018-11-25 06:12:00 * Test Item Value Reference Range Interpretation Comments Neutrophils (%) (Auto) (test code = 84062-2) 60.5 38.7-80.0 [facility] [...] Comments Lymphocytes # (Auto) (test code = 58058-8) 2.5 1.0-3.2 [facility] [...] [facility] CampusWhite Blood Gpaln0476-16-42 06:12:00* Test Item Value Reference Range Interpretation Comments White Blood Count (test code = 6690-2) 10.09 4.8-10.8 [facility] CampusRed Blood Fqhgn0169-05-05 06:12:00* Test Item Value Reference Range Interpretation Comments Red Blood Count (test code = 789-8) 3.20 4.3-5.7 L [facility] CampusHemoglobin2019-08-29 06:12:00* Test Item Value Reference Range Interpretation Comments Hemoglobin (test code = 27339-3) 9.0 14.0-18.0 L [facility] [facility]:12:00* Test Item Value Reference Range Interpretation Comments Hematocrit (test code = 4544-3) 28.1 38.2-49.6 L [facility] CampusMean Corpuscular Gedtqz0172-61-59 06:12:00* Test Item Value Reference Range Interpretation Comments Mean Corpuscular Volume (test code = 787-2) 87.8 81-99 [facility] CampusMean Corpuscular Ursythtpmn7013-88-86 06:12:00* Test Item Value Reference Range Interpretation Comments Mean Corpuscular Hemoglobin (test code = 785-6) 28.1 28-32 [facility] CampusMean Corpuscular Hemoglobin Concent 2018-11-25 06:12:00* Test Item Value Reference Range Interpretation Comments Mean Corpuscular Hemoglobin Concent (test code = 786-4) 32.0 31-35 [facility] CampusRed Cell Distribution Ycvpj7695-82-73 06:12:00* Test Item Value Reference Range Interpretation Comments Red Cell Distribution Width (test code = 03476-7) 13.7 11.7 -14.4 [facility] CampusPlatelet Mnuob3111-34-71 06:12:00* Test Item Value Reference Range Interpretation Comments Platelet Count (test code = 777-3) 185 140-360 [facility] CampusNeutrophils (%) (Auto)2018-11-25 06:12:00 * Test Item Value Reference Range Interpretation Comments Neutrophils (%) (Auto) (test code = 32326-2) 60.5 38.7-80.0 [facility] [...] Comments Lymphocytes # (Auto) (test code = 71503-3) 2.5 1.0-3.2 [facility] CampusWhite Blood Jppxd3734-70-94 06:12:00* Test Item Value Reference Range Interpretation Comments White Blood Count (test code = 6690-2) 10.09 4.8-10.8 [facility] CampusRed Blood Zsmgu2961-04-09 06:12:00* Test Item Value Reference Range Interpretation Comments Red Blood Count (test code = 789-8) 3.20 4.3-5.7 L [facility] CampusHemoglobin2019-08-29 06:12:00* Test Item Value Reference Range Interpretation Comments Hemoglobin (test code = 01703-2) 9.0 14.0-18.0 L [facility] CampusHematocrit2019-08-29 06:12:00* Test Item Value Reference Range Interpretation Comments Hematocrit (test code = 4544-3) 28.1 38.2-49.6 L [facility] CampusMean Corpuscular Dwuati3974-63-81 06:12:00* Test Item Value Reference Range Interpretation Comments Mean Corpuscular Volume (test code = 787-2) 87.8 81-99 [facility] CampusMean Corpuscular Opvtzjamej2703-14-85 06:12:00* Test Item Value Reference Range Interpretation Comments Mean Corpuscular Hemoglobin (test code = 785-6) 28.1 28-32 [facility] CampusMean Corpuscular Hemoglobin Concent 2018-11-25 06:12:00* Test Item Value Reference Range Interpretation Comments Mean Corpuscular Hemoglobin Concent (test code = 786-4) 32.0 31-35 [facility] CampusRed Cell Distribution Fzfci8161-67-88 06:12:00* Test Item Value Reference Range Interpretation Comments Red Cell Distribution Width (test code = 26573-3) 13.7 11.7 -14.4 [facility] CampusPlatelet Mmukr1144-08-40 06:12:00* Test Item Value Reference Range Interpretation Comments Platelet Count (test code = 777-3) 185 140-360 [facility] CampusNeutrophils (%) (Auto)2018-11-25 06:12:00 * Test Item Value Reference Range Interpretation Comments Neutrophils (%) (Auto) (test code = 31281-8) 60.5 38.7-80.0 [facility] [...] Comments Lymphocytes # (Auto) (test code = 48271-5) 2.5 1.0-3.2 [facility] [...] [facility] CampusWhite Blood Dqiaw4321-47-71 06:12:00* Test Item Value Reference Range Interpretation Comments White Blood Count (test code = 6690-2) 10.09 4.8-10.8 [facility] CampusRed Blood Yqhvy1923-22-11 06:12:00* Test Item Value Reference Range Interpretation Comments Red Blood Count (test code = 789-8) 3.20 4.3-5.7 L [facility] CampusHemoglobin2019-08-29 06:12:00* Test Item Value Reference Range Interpretation Comments Hemoglobin (test code = 73518-7) 9.0 14.0-18.0 L [facility] CampusHematocrit2019-08-29 06:12:00* Test Item Value Reference Range Interpretation Comments Hematocrit (test code = 4544-3) 28.1 38.2-49.6 L [facility] CampusMean Corpuscular Cvarwg9515-63-61 06:12:00* Test Item Value Reference Range Interpretation Comments Mean Corpuscular Volume (test code = 787-2) 87.8 81-99 [facility] CampusMean Corpuscular Hirlievjuf8151-87-26 06:12:00* Test Item Value Reference Range Interpretation Comments Mean Corpuscular Hemoglobin (test code = 785-6) 28.1 28-32 [facility] Hem[facility] Concent 2018-11-25 06:12:00* Test Item Value Reference Range Interpretation Comments Mean Corpuscular Hemoglobin Concent (test code = 786-4) 32.0 31-35 [facility] CampusRed Cell Distribution Laubk0077-45-94 06:12:00* Test Item Value Reference Range Interpretation Comments Red Cell Distribution Width (test code = 74633-5) 13.7 11.7 -14.4 [facility] CampusPlatelet Hmlhg0491-21-09 06:12:00* Test Item Value Reference Range Interpretation Comments Platelet Count (test code = 777-3) 185 140-360 [facility] CampusNeutrophils (%) (Auto)2018-11-25 06:12:00 * Test Item Value Reference Range Interpretation Comments Neutrophils (%) (Auto) (test code = 50807-9) 60.5 38.7-80.0 [facility] [...] Comments Lymphocytes # (Auto) (test code = 44510-3) 2.5 1.0-3.2 [facility] [...] = Absolute Immature Granulocyte (auto) 0.01 0-0.1 [facility]odium Nxewc2281-27-12 05:57:00* Test Item Value Reference Range Interpretation Comments Sodium Level (test code = 2951-2) 138 136-145 [facility] CampusPotassium Wivlq1287-43-08 05:57:00* Test Item Value Reference Range Interpretation Comments Potassium Level (test code = 2823-3) 3.3 3.5-5.1 L [facility] CampusChloride Mvjbc0699-58-93 05:57:00* Test Item Value Reference Range Interpretation Comments Chloride Level (test code = 2075-0) 105 98-107 [facility] CampusCarbon Dioxide Mkild4082-01-66 05:57:00* Test Item Value Reference Range Interpretation Comments Carbon Dioxide Level (test code = 2028-9) 27 22-29 [facility] CampusAnion Gte6363-58-04 05:57:00* Test Item Value Reference Range Interpretation Comments Anion Gap (test code = 72169-1) 9.3 8-16 [facility] CampusBlood Urea Akrgdryx6776-45-41 05:57:00* Test Item Value Reference Range Interpretation Comments Blood Urea Nitrogen (test code = 3094-0) 15 7-26 [facility] CampusCreatinine2019-08-29 05:57:00* Test Item Value Reference Range Interpretation Comments Creatinine (test code = 2160-0) 1.17 0.72-1.25 [facility] CampusBUN/Creatinine Ccvop2360-92-26 05:57:00* Test Item Value Reference Range Interpretation Comments BUN/Creatinine Ratio (test code = 3097-3) 13 6-25 [facility] CampusEstimat Glomerular Filtration Rate 2018-11-25 05:57:00* Test Item Value Reference Range Interpretation Comments Estimat Glomerular Filtration Rate (test code = 169935448) > 60 >60 Ranges were taken from the National Kidney Disease Education Program and the [facility] Foundation literature.Reference ranges:60 or greater: Jvfhju11-07 ( for 3 consecutive months): Chronic kidney disease 15 or less: Kidney failureThe Hospitals of [facility] CampusGlucose Nnmlz3024-66-85 05:57:00* Test Item Value Reference Range Interpretation Comments Glucose Level (test code = ZCN6063) 247 74-118 H [facility] CampusCalcium Uoisl6437-21-58 05:57:00* Test Item Value Reference Range Interpretation Comments Calcium Level (test code = 52015-8) 8.4 8.4-10.2 [facility] Hospitalodium Ewltd3290-90-48 05:57:00* Test Item Value Reference Range Interpretation Comments Sodium Level (test code = 2951-2) 138 136-145 [facility] CampusPotassium Koluy2334-19-91 05:57:00* Test Item Value Reference Range Interpretation Comments Potassium Level (test code = 2823-3) 3.3 3.5-5.1 L [facility] CampusChloride Kdcwc5742-78-19 05:57:00* Test Item Value Reference Range Interpretation Comments Chloride Level (test code = 2075-0) 105 98-107 [facility] CampusCarbon Dioxide Bjbsj7363-36-13 05:57:00* Test Item Value Reference Range Interpretation Comments Carbon Dioxide Level (test code = 2028-9) 27 22-29 [facility] CampusAnion Pxu7678-09-61 05:57:00* Test Item Value Reference Range Interpretation Comments Anion Gap (test code = 28992-3) 9.3 8-16 [facility] CampusBlood Urea Hidelsfs0624-47-40 05:57:00* Test Item Value Reference Range Interpretation Comments Blood Urea Nitrogen (test code = 3094-0) 15 10-22 [facility] CampusCreatinine2019-08-29 05:57:00* Test Item Value Reference Range Interpretation Comments Creatinine (test code = 2160-0) 1.17 0.72-1.25 [facility] CampusBUN/Creatinine Atitr9377-99-61 05:57:00* Test Item Value Reference Range Interpretation Comments BUN/Creatinine Ratio (test code = 3097-3) 13 09-21 [facility] CampusEstimat Glomerular Filtration Rate 2018-11-25 05:57:00* Test Item Value Reference Range Interpretation Comments Estimat Glomerular Filtration Rate (test code = 205787001) > 60 >60 Ranges were taken from the National Kidney Disease Education Program and the [facility] literature.Reference ranges:60 or greater: Jwimgt54-09 ( for 3 consecutive months): Chronic kidney disease 15 or less: Kidney failureThe Hospitals of [facility] CampusGlucose Awuse5462-13-53 05:57:00* Test Item Value Reference Range Interpretation Comments Glucose Level (test code = GYX7719) 247 74-118 H [facility] CampusCalcium Znghn7982-25-10 05:57:00* Test Item Value Reference Range Interpretation Comments Calcium Level (test code = 00640-5) 8.4 8.4-10.2 [facility] Hospitalodium Hkifw5849-63-35 05:57:00* Test Item Value Reference Range Interpretation Comments Sodium Level (test code = 2951-2) 138 136-145 [facility] CampusPotassium Suqpw8710-84-34 05:57:00* Test Item Value Reference Range Interpretation Comments Potassium Level (test code = 2823-3) 3.3 3.5-5.1 L [facility] CampusChloride Cwxkv2605-64-70 05:57:00* Test Item Value Reference Range Interpretation Comments Chloride Level (test code = 2075-0) 105 98-107 [facility] CampusCarbon Dioxide Pzlbk0888-43-43 05:57:00* Test Item Value Reference Range Interpretation Comments Carbon Dioxide Level (test code = 2028-9) 27 [facility] CampusAnion Tff9956-93-21 05:57:00* Test Item Value Reference Range Interpretation Comments Anion Gap (test code = 56957-6) 9.3 8-16 [facility] CampusBlood Urea Crxyezkx8621-42-10 05:57:00* Test Item Value Reference Range Interpretation Comments Blood Urea Nitrogen (test code = 3094-0) 15 7- [facility] CampusCreatinine2019-08-29 05:57:00* Test Item Value Reference Range Interpretation Comments Creatinine (test code = 2160-0) 1.17 0.72-1.25 [facility] CampusBUN/Creatinine Krdrf4233-22-50 05:57:00* Test Item Value Reference Range Interpretation Comments BUN/Creatinine Ratio (test code = 3097-3) 13 09-21 [facility] CampusEstimat Glomerular Filtration Rate 2018-11-25 05:57:00* Test Item Value Reference Range Interpretation Comments Estimat Glomerular Filtration Rate (test code = 631118298) > 60 >60 Ranges were taken from the National Kidney Disease Education Program and the [facility] literature.Reference ranges:60 or greater: Agduxm40-73 ( for 3 consecutive months): Chronic kidney disease 15 or less: Kidney failureThe Hospitals of [facility] CampusGlucose Oykir7385-45-41 05:57:00* Test Item Value Reference Range Interpretation Comments Glucose Level (test code = NJV2116) 247 74-118 H [facility] CampusCalcium Royyb6524-45-95 05:57:00* Test Item Value Reference Range Interpretation Comments Calcium Level (test code = 95455-9) 8.4 8.4-10.2 [facility] Hospitalodium Lwihm3475-96-21 05:57:00* Test Item Value Reference Range Interpretation Comments Sodium Level (test code = 2951-2) 138 136-145 [facility] CampusPotassium Hntsu4019-46-86 05:57:00* Test Item Value Reference Range Interpretation Comments Potassium Level (test code = 2823-3) 3.3 3.5-5.1 L [facility] CampusChloride Qvpaf6022-72-84 05:57:00* Test Item Value Reference Range Interpretation Comments Chloride Level (test code = 2075-0) 105 98-107 [facility] CampusCarbon Dioxide Uqywe7217-71-66 05:57:00* Test Item Value Reference Range Interpretation Comments Carbon Dioxide Level (test code = 2028-9) 27 22-29 [facility] CampusAnion Aue1981-13-31 05:57:00* Test Item Value Reference Range Interpretation Comments Anion Gap (test code = 04306-4) 9.3 8-16 [facility] CampusBlood Urea Pivntdkb0753-49-35 05:57:00* Test Item Value Reference Range Interpretation Comments Blood Urea Nitrogen (test code = 3094-0) 15 - [facility] CampusCreatinine2019-08-29 05:57:00* Test Item Value Reference Range Interpretation Comments Creatinine (test code = 2160-0) 1.17 0.72-1.25 [facility] CampusBUN/Creatinine Pqeyk9114-20-72 05:57:00* Test Item Value Reference Range Interpretation Comments BUN/Creatinine Ratio (test code = 3097-3) 13 09-21 [facility] CampusEstimat Glomerular Filtration Rate 2018-11-25 05:57:00* Test Item Value Reference Range Interpretation Comments Estimat Glomerular Filtration Rate (test code = 180081865) > 60 >60 Ranges were taken from the National Kidney Disease Education Program and the [place] count includes the [facility] Kidney Foundation literature.Reference ranges:60 or greater: Cuidhk93-41 ( for 3 consecutive months): Chronic kidney disease 15 or less: Kidney failureThe Hospitals of [facility] CampusGlucose Zqgiv5839-97-58 05:57:00* Test Item Value Reference Range Interpretation Comments Glucose Level (test code = LHY0004) 247 74-118 H [facility] CampusCalcium Ddfio1733-56-26 05:57:00* Test Item Value Reference Range Interpretation Comments Calcium Level (test code = 06988-8) 8.4 8.4-10.2 [facility] CampusBlood Zmkxmhb0545-68-34 20:52:00* Test Item Value Reference Range Interpretation Comments Blood Culture (test code = 13398725) NO GROWTH AFTER 48 HOURS [facility] CampusUrine UOR7151-99-97 10:48:00* Test Item Value Reference Range Interpretation Comments Urine WBC (test code = 5821-4) 6-10 0-5 H [facility] CampusUrine XJY3642-32-92 10:48:00* Test Item Value Reference Range Interpretation Comments Urine RBC (test code = 90985-2) 0-5 0-5 [facility] CampusUrine Helsdtjr8980-25-36 10:48:00* Test Item Value Reference Range Interpretation Comments Urine Bacteria (test code = 57242-2) MODERATE NONE H [facility] CampusUrine Epithelial Bxmmu0344-35-63 10:48:00 * Test Item Value Reference Range Interpretation Comments Urine Epithelial Cells (test code = 52806-2) FEW NONE [facility] CampusUrine CVI7342-37-63 10:48:00* Test Item Value Reference Range Interpretation Comments Urine WBC (test code = 5821-4) 6-10 0-5 H [facility] CampusUrine PHD4015-63-06 10:48:00* Test Item Value Reference Range Interpretation Comments Urine RBC (test code = 00347-5) 0-5 0-5 [facility] CampusUrine Mujbedxi9918-98-30 10:48:00* Test Item Value Reference Range Interpretation Comments Urine Bacteria (test code = 24288-2) MODERATE NONE H [facility] CampusUrine Epithelial Cwkly1055-25-18 10:48:00 * Test Item Value Reference Range Interpretation Comments Urine Epithelial Cells (test code = 27973-5) FEW NONE [facility] CampusUrine IUX0751-14-80 10:48:00* Test Item Value Reference Range Interpretation Comments Urine WBC (test code = 5821-4) 6-10 0-5 H [facility] CampusUrine IOW9632-13-65 10:48:00* Test Item Value Reference Range Interpretation Comments Urine RBC (test code = 95768-4) 0-5 0-5 [facility] CampusUrine Mckuzkwj1135-04-10 10:48:00* Test Item Value Reference Range Interpretation Comments Urine Bacteria (test code = 05251-0) MODERATE NONE H [facility] CampusUrine Epithelial Gwtsm9010-02-23 10:48:00 * Test Item Value Reference Range Interpretation Comments Urine Epithelial Cells (test code = 86626-2) FEW NONE [facility] CampusUrine ZSG1255-84-18 10:48:00* Test Item Value Reference Range Interpretation Comments Urine WBC (test code = 5821-4) 6-10 0-5 H [facility] CampusUrine RDF9574-95-67 10:48:00* Test Item Value Reference Range Interpretation Comments Urine RBC (test code = 23755-7) 0-5 0-5 [facility] CampusUrine Nmmymcnj8809-83-10 10:48:00* Test Item Value Reference Range Interpretation Comments Urine Bacteria (test code = 63512-3) MODERATE NONE H [facility] CampusUrine Epithelial Xddrn1909-09-26 10:48:00 * Test Item Value Reference Range Interpretation Comments Urine Epithelial Cells (test code = 85780-9) FEW NONE [facility] CampusUrine KHD0023-99-87 10:48:00* Test Item Value Reference Range Interpretation Comments Urine WBC (test code = 5821-4) 6-10 0-5 H [facility] CampusUrine BYR8404-33-70 10:48:00* Test Item Value Reference Range Interpretation Comments Urine RBC (test code = 95394-9) 0-5 0-5 [facility] CampusUrine Ohshpvac3991-06-46 10:48:00* Test Item Value Reference Range Interpretation Comments Urine Bacteria (test code = 80973-4) MODERATE NONE H [facility] CampusUrine Epithelial Urxei9983-26-27 10:48:00 * Test Item Value Reference Range Interpretation Comments Urine Epithelial Cells (test code = 07278-0) FEW NONE [facility] CampusUrine Qrpol4532-91-24 10:24:00* Test Item Value Reference Range Interpretation Comments Urine Color (test code = 5778-6) YELLOW YELLOW [facility] CampusUrine Bblonkv6947-46-10 10:24:00* Test Item Value Reference Range Interpretation Comments Urine Clarity (test code = 89034-4) CLEAR CLEAR [facility] CampusUrine Specific Rqrwcwi0465-35-09 10:24:00 * Test Item Value Reference Range Interpretation Comments Urine Specific [place] (test code = 5811-5) 1.025 1.010-1.02 5 [facility] CampusUrine jG7962-05-97 10:24:00* Test Item Value Reference Range Interpretation Comments Urine pH (test code = 73712-1) 6 5-7 [facility] CampusU[facility] Leukocyte Gnytckvt9609-23-44 10:24:00* Test Item Value Reference Range Interpretation Comments Urine Leukocyte Esterase (test code = 56732-2) NEGATIVE NEGATIV E [facility] Ymctght6944-36-21 10:24:00* Test Item Value Reference Range Interpretation Comments Urine Nitrite (test code = 04738-7) NEGATIVE NEGATIVE [facility] Latbkqk7618-76-42 10:24:00* Test Item Value Reference Range Interpretation Comments Urine Protein (test code = 07731-3) NEGATIVE NEGATIVE [facility] Glucose (UA)2018-11-24 10:24:00* Test Item Value Reference Range Interpretation Comments Urine Glucose (UA) (test code = 77997-2) NEGATIVE NEGATIVE [facility] Ltjfzpa6232-11-84 10:24:00* Test Item Value Reference Range Interpretation Comments Urine Ketones (test code = 94523-0) 1+ NEGATIVE H [facility] Odwrxthecjxw3945-50-02 10:24:00* Test Item Value Reference Range Interpretation Comments Urine Urobilinogen (test code = 71244-4) 0.2 0.2-1 [facility] Njendaxxc2541-27-13 10:24:00* Test Item Value Reference Range Interpretation Comments Urine Bilirubin (test code = 1977-8) NEGATIVE NEGATIVE [facility] Jlbjg6851-60-26 10:24:00* Test Item Value Reference Range Interpretation Comments Urine Blood (test code = 07137-2) NEGATIVE NEGATIVE [facility] Qvygi5579-28-67 10:24:00* Test Item Value Reference Range Interpretation Comments Urine Color (test code = 5778-6) YELLOW YELLOW [facility] Uoocsnv9809-88-77 10:24:00* Test Item Value Reference Range Interpretation Comments Urine Clarity (test code = 42803-7) CLEAR CLEAR [facility] Specific Wvnosol4761-90-68 10:24:00 * Test Item Value Reference Range Interpretation Comments Urine Specific [place] (test code = 5811-5) 1.025 1.010-1.02 5 [facility] zR1063-16-01 10:24:00* Test Item Value Reference Range Interpretation Comments Urine pH (test code = 70487-7) 6 5-7 [facility] Leukocyte Hbdyunwr1435-00-78 10:24:00* Test Item Value Reference Range Interpretation Comments Urine Leukocyte Esterase (test code = 73821-5) NEGATIVE NEGATIV E [facility] Tnljtqi5861-71-62 10:24:00* Test Item Value Reference Range Interpretation Comments Urine Nitrite (test code = 45910-2) NEGATIVE NEGATIVE [facility] Czkicpu9943-68-68 10:24:00* Test Item Value Reference Range Interpretation Comments Urine Protein (test code = 95181-5) NEGATIVE NEGATIVE [facility] Glucose (UA)2018-11-24 10:24:00* Test Item Value Reference Range Interpretation Comments Urine Glucose (UA) (test code = 92913-2) NEGATIVE NEGATIVE [facility] Qigaabt2863-95-23 10:24:00* Test Item Value Reference Range Interpretation Comments Urine Ketones (test code = 32837-7) 1+ NEGATIVE H [facility] Xzudrvbdarpk0057-49-09 10:24:00* Test Item Value Reference Range Interpretation Comments Urine Urobilinogen (test code = 24315-4) 0.2 0.2-1 [facility] Svrwvgyrc9184-52-05 10:24:00* Test Item Value Reference Range Interpretation Comments Urine Bilirubin (test code = 1977-8) NEGATIVE NEGATIVE [facility] Ntynt7626-06-30 10:24:00* Test Item Value Reference Range Interpretation Comments Urine Blood (test code = 57887-9) NEGATIVE NEGATIVE [facility] Pzvng1625-05-15 10:24:00* Test Item Value Reference Range Interpretation Comments Urine Color (test code = 5778-6) YELLOW YELLOW [facility] Qbgnrks4905-29-12 10:24:00* Test Item Value Reference Range Interpretation Comments Urine Clarity (test code = 02699-5) CLEAR CLEAR [facility] Specific Hzxwyrm5216-82-04 10:24:00 * Test Item Value Reference Range Interpretation Comments Urine Specific [place] (test code = 5811-5) 1.025 1.010-1.02 5 [facility] hW2262-92-38 10:24:00* Test Item Value Reference Range Interpretation Comments Urine pH (test code = 72831-6) 6 5-7 [facility] Leukocyte Ovscotlt8648-51-08 10:24:00* Test Item Value Reference Range Interpretation Comments Urine Leukocyte Esterase (test code = 64178-7) NEGATIVE NEGATIV E [facility] Kdrphur0892-60-63 10:24:00* Test Item Value Reference Range Interpretation Comments Urine Nitrite (test code = 92788-2) NEGATIVE NEGATIVE [facility] Crdisim3151-78-02 10:24:00* Test Item Value Reference Range Interpretation Comments Urine Protein (test code = 02646-6) NEGATIVE NEGATIVE [facility] Glucose (UA)2018-11-24 10:24:00* Test Item Value Reference Range Interpretation Comments Urine Glucose (UA) (test code = 85699-5) NEGATIVE NEGATIVE [facility] Sbqyvsn8388-59-64 10:24:00* Test Item Value Reference Range Interpretation Comments Urine Ketones (test code = 56881-5) 1+ NEGATIVE H [facility] Eqpwaftoogap5590-61-34 10:24:00* Test Item Value Reference Range Interpretation Comments Urine Urobilinogen (test code = 06138-9) 0.2 0.2-1 [facility] Iivmlnayl4358-17-24 10:24:00* Test Item Value Reference Range Interpretation Comments Urine Bilirubin (test code = 1977-8) NEGATIVE NEGATIVE [facility] Ucjge8967-03-77 10:24:00* Test Item Value Reference Range Interpretation Comments Urine Blood (test code = 25141-7) NEGATIVE NEGATIVE [facility] Uuskn2072-23-96 10:24:00* Test Item Value Reference Range Interpretation Comments Urine Color (test code = 5778-6) YELLOW YELLOW [facility] Epphxuf6051-26-36 10:24:00* Test Item Value Reference Range Interpretation Comments Urine Clarity (test code = 14577-3) CLEAR CLEAR [facility] Specific Qwghqtp5926-42-71 10:24:00 * Test Item Value Reference Range Interpretation Comments Urine Specific [place] (test code = 5811-5) 1.025 1.010-1.02 5 [facility] sK2092-46-92 10:24:00* Test Item Value Reference Range Interpretation Comments Urine pH (test code = 63166-9) 6 5-7 [facility] Leukocyte Tiwzgiov6803-94-53 10:24:00* Test Item Value Reference Range Interpretation Comments Urine Leukocyte Esterase (test code = 16290-2) NEGATIVE NEGATIV E [facility] Idwxfxb6616-66-96 10:24:00* Test Item Value Reference Range Interpretation Comments Urine Nitrite (test code = 38615-9) NEGATIVE NEGATIVE [facility] Uyvucgn6281-38-30 10:24:00* Test Item Value Reference Range Interpretation Comments Urine Protein (test code = 22374-4) NEGATIVE NEGATIVE [facility] Glucose (UA)2018-11-24 10:24:00* Test Item Value Reference Range Interpretation Comments Urine Glucose (UA) (test code = 24819-5) NEGATIVE NEGATIVE [facility] Ztrbndu9698-17-88 10:24:00* Test Item Value Reference Range Interpretation Comments Urine Ketones (test code = 68305-6) 1+ NEGATIVE H [facility] Ivxgbhtcbiyh6217-68-33 10:24:00* Test Item Value Reference Range Interpretation Comments Urine Urobilinogen (test code = 31033-6) 0.2 0.2-1 [facility] Pzjfgzlzq5687-52-88 10:24:00* Test Item Value Reference Range Interpretation Comments Urine Bilirubin (test code = 1977-8) NEGATIVE NEGATIVE [facility] Jmajy2346-80-68 10:24:00* Test Item Value Reference Range Interpretation Comments Urine Blood (test code = 54555-3) NEGATIVE NEGATIVE [facility] Cxyuc4218-87-38 10:24:00* Test Item Value Reference Range Interpretation Comments Urine Color (test code = 5778-6) YELLOW YELLOW [facility] Ksmliju2229-62-51 10:24:00* Test Item Value Reference Range Interpretation Comments Urine Clarity (test code = 83405-3) CLEAR CLEAR [facility] Specific Ntzewtj9216-91-93 10:24:00 * Test Item Value Reference Range Interpretation Comments Urine Specific [place] (test code = 5811-5) 1.025 1.010-1.02 5 [facility] zA1661-15-76 10:24:00* Test Item Value Reference Range Interpretation Comments Urine pH (test code = 92301-5) 6 5-7 [facility] Leukocyte Pfipwclc2621-14-30 10:24:00* Test Item Value Reference Range Interpretation Comments Urine Leukocyte Esterase (test code = 84804-0) NEGATIVE NEGATIV E [facility] Axrzzaj3835-14-11 10:24:00* Test Item Value Reference Range Interpretation Comments Urine Nitrite (test code = 42511-8) NEGATIVE NEGATIVE [facility] Icbnmsj6020-20-14 10:24:00* Test Item Value Reference Range Interpretation Comments Urine Protein (test code = 64065-8) NEGATIVE NEGATIVE [facility] Glucose (UA)2018-11-24 10:24:00* Test Item Value Reference Range Interpretation Comments Urine Glucose (UA) (test code = 08333-4) NEGATIVE NEGATIVE [facility] Muwyuub0629-67-30 10:24:00* Test Item Value Reference Range Interpretation Comments Urine Ketones (test code = 63143-0) 1+ NEGATIVE H [facility] Pncojjwbalij2649-57-81 10:24:00* Test Item Value Reference Range Interpretation Comments Urine Urobilinogen (test code = 24745-4) 0.2 0.2-1 [facility] Pcahgqlzw5615-55-33 10:24:00* Test Item Value Reference Range Interpretation Comments Urine Bilirubin (test code = 1977-8) NEGATIVE NEGATIVE [facility] Zhqjh0963-99-95 10:24:00* Test Item Value Reference Range Interpretation Comments Urine Blood (test code = 17197-4) NEGATIVE NEGATIVE [facility] color tyiwetvzgtpxh5537-88-62 08:40:00* Test Item Value Reference Range Interpretation Comments Urine Color (test code = 5778-6) YELLOW YELLOW [facility] fveoeww5920-19-82 08:40:00* Test Item Value Reference Range Interpretation Comments Urine Clarity (test code = 73556-8) CLEAR CLEAR [facility] U[facility] by Test strip 2018-11-24 08:40:00* Test Item Value Reference Range Interpretation Comments Urine Specific [place] (test code = 5811-5) 1.025 1.010-1.02 5 [facility] pH measurement by automated test gfpfw2492-57-62 08:40:00* Test Item Value Reference Range Interpretation Comments Urine pH (test code = 61767-9) 6 5-7 [facility] leukocyte esterase detection by automated test qrbzp2088-33-39 08:40:00* Test Item Value Reference Range Interpretation Comments Urine Leukocyte Esterase (test code = 60250-7) NEGATIVE NEGATIV E [facility] nitrite detection by automated test njcxm6780-91-35 08:40:00* Test Item Value Reference Range Interpretation Comments Urine Nitrite (test code = 01014-4) NEGATIVE NEGATIVE [facility] protein detection by automated test mgrrs8307-58-90 08:40:00* Test Item Value Reference Range Interpretation Comments Urine Protein (test code = 13753-7) NEGATIVE NEGATIVE [facility] glucose detection by automated test xwimc4351-10-34 08:40:00* Test Item Value Reference Range Interpretation Comments Urine Glucose (UA) (test code = 64554-1) NEGATIVE NEGATIVE [facility] ketones detection by automated test cvqgy9914-11-59 08:40:00* Test Item Value Reference Range Interpretation Comments Urine Ketones (test code = 94154-5) 1+ NEGATIVE [facility] urobilinogen measurement by test strip (mass/volume)2018-11-24 08:40:00* Test Item Value Reference Range Interpretation Comments Urine Urobilinogen (test code = 52353-4) 0.2 0.2-1 [facility] total bilirubin fixmbhcvy7525-89-82 08:40:00* Test Item Value Reference Range Interpretation Comments Urine Bilirubin (test code = 1977-8) NEGATIVE NEGATIVE [facility] erythrocytes gmgxetzof4393-99-55 08:40:00* Test Item Value Reference Range Interpretation Comments Urine Blood (test code = 52537-0) NEGATIVE NEGATIVE [facility] CampusAutomated urine sediment leukocyte count by microscopy (number/high power field)2018-11-24 08:40:00* Test Item Value Reference Range Interpretation Comments Urine WBC (test code = 5821-4) 6-10 0-5 [facility] CampusErythrocytes detection in urine sediment by light iddwyztcql5640-40-86 08:40:00* Test Item Value Reference Range Interpretation Comments Urine RBC (test code = 13908-4) 0-5 0-5 [facility] CampusBacteria detection in urine sediment by light uvmnueritd2172-56-69 08:40:00* Test Item Value Reference Range Interpretation Comments Urine Bacteria (test code = 73363-7) MODERATE NONE [facility] CampusEpithelial cells detection in urine sediment by light kdnykidlsg7572-57-37 08:40:00* Test Item Value Reference Range Interpretation Comments Urine Epithelial Cells (test code = 97599-8) FEW NONE [facility] CampusLipase2019-08-28 03:50:00* Test Item Value Reference Range Interpretation Comments Lipase (test code = 3040-3) < 4 8-78 L [facility] CampusCXR 1 VEW - UQSO6924-04-95 18:41:00 [facility] [address] [address] Patient Name: BREE LINDSAY MR #: [id number] : 1975 Age/Sex: 42/M Req #: [id number] Adm Physician: ISACC JAVED MD Ordered by: NEIL PEREZ MD Report #: [id number] Location: [facility] Room/Bed: [address] [address] Procedure: 5315-4315 HOPD/CXR 1 VEW - HOPD Exam Date: 11/22/18 Exam Time : 1755 REPORT STATUS: Signed EXA MINATION: CXR 1 VIEW - HOPD COMPARISON: None INDICATION: Hemateme sis [id number] DISCUSSION: Frontal view of the chest [...] on 11/22/181843 COPY TO: NEIL PEREZ MD FGMVRM5058-36-63 11:31:00* Test Item Value Reference Range Interpretation Comments GLUBED (test code = GLUBED) 163 mg/dL 74-106 H Performed by certified rough 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 [facility] HPJXCA5778-91-06 05:52:00* Test Item Value Reference Range Interpretation Comments GLUBED (test code = GLUBED) 339 mg/dL 74-106 H Performed by certified rough 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 [facility] BASIC METABOLIC MENOU5698-23-61 05:04:00* Test Item Value Reference Range Interpretation [...] code = CA) 8.6 mg/dL 8.5-10.1 N MFYWMQXTCV3971-97-45 05:04:00* Test Item Value Reference Range Interpretation Comments PHOSPHORUS (test code = PHOS) 2.5 mg/dL 2.5-4.9 N HCUYJYQWP5092-08-99 05:04:00* Test Item Value Reference Range Interpretation Comments MAGNESIUM (test code = MAG) 1.7 mg/dL 1.8-2.4 L CBC W/AUTO QINR8522-57-03 04:58:00* Test Item Value Reference Range Interpretation [...] (test code = MDIFF) NO BASIC METABOLIC OOWKW4610-83-29 04:54:00* Test Item Value Reference Range Interpretation [...] CALCIUM (test code = CA) mg/dL 8.5-10.1 VKINCBJIIO4869-22-29 04:54:00* Test Item Value Reference Range Interpretation Comments PHOSPHORUS (test code = PHOS) mg/dL 2.5-4.9 SFDDXWUHH4705-71-92 04:54:00* Test Item Value Reference Range Interpretation Comments MAGNESIUM (test code = MAG) mg/dL 1.8-2.4 DFTGYW2297-92-55 21:18:00* Test Item Value Reference Range Interpretation Comments GLUBED (test code = GLUBED) 363 mg/dL 74-106 H Performed by certified rough 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 [facility] TOXZ6O7257-23-48 18:20:00* Test Item Value Reference Range Interpretation Comments GLYCOSYLATED HEMOGLOBIN (HA1C) (test code = GLYHGB) 9.0 % HbA1 4. 8-6.0 H ESTIMATED AVERAGE GLUCOSE (test code = EAG) 212 MG/DL QOSPRX0823-77-32 17:42:00* Test Item Value Reference Range Interpretation Comments GLUBED (test code = GLUBED) 216 mg/dL 74-106 H Performed by certified rough 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 [facility] KZPXRV1164-61-53 13:09:00* Test Item Value Reference Range Interpretation Comments GLUBED (test code = GLUBED) 209 mg/dL 74-106 H Performed by certified rough 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 [facility] LACTIC ZKTE6264-40-52 08:53:00* Test Item Value Reference Range Interpretation [...] taking into account the patients history. PROTHROMBIN GGKB9669-34-77 07:23:00* Test Item Value Reference Range Interpretation [...] (2.5-3.5) IS PATIENT ON ANTICOAGULANTS? NTHROMBOPLASTIN TIME QEYTOYD3292-94-83 07:23:00* Test Item Value Reference Range Interpretation Comments THROMBOPLASTIN TIME PARTIAL (test code = PTT) 26.2 seconds 25.0-36. 5 N IS PATIENT ON ANTICOAGULANTS? NBASIC METABOLIC NBJCY3649-57-47 06:41:00* Test Item Value Reference Range Interpretation [...] CA) 9.7 mg/dL 8.5-10.1 N HEPATIC FUNCTION NDAQL6729-46-39 06:41:00* Test Item Value Reference Range Interpretation [...] reference range due to change in reagent. LCUQZA2546-27-38 06:41:00* Test Item Value Reference Range Interpretation Comments LIPASE (test code = LIP) 16 U/L 73.0-393.0 L RJBWTYEX-P4422-38-03 06:41:00* Test Item Value Reference Range Interpretation Comments TROPONIN-I (test code = TROPI) <0.015 ng/mL 0-0.045 N BASIC METABOLIC FVYID2337-38-06 06:27:00* Test Item Value Reference Range Interpretation [...] code = CA) mg/dL 8.5-10.1 HEPATIC FUNCTION SAFNC2461-69-51 06:27:00* Test Item Value Reference Range Interpretation [...] TOTAL (test code = ALKP) IUnit/L 45-117 ZYATKK1013-70-63 06:27:00* Test Item Value Reference Range Interpretation Comments LIPASE (test code = LIP) U/L 73.0-393.0 CQDWKOLQ-C5062-36-03 06:27:00* Test Item Value Reference Range Interpretation Comments TROPONIN-I (test code = TROPI) ng/mL 0-0.045 POC LACTIC FOEI2809-09-39 06:23:00* Test Item Value Reference Range Interpretation Comments POC LACTIC ACID (test code = POCLAC) 1.46 MMOL/L 0.4-2.2 N CBC W/O NFIZ5252-42-26 06:22:00* Test Item Value Reference Range Interpretation [...] = MPV) 11.6 fL 6.7-11.0 H GASTRIC YCPRQZUQ5520-12-24 00:53:00 [facility] [address] [address] Patient Name: BREE LINDSAY MR #: [id number] : 1975 Age/Sex: 42/M Req #: [id number] Adm Physician: Ordered by: TAVIA GARCIA MD Report #: [id number] Location: [place] Room/Bed: Procedure: N M/GASTRIC EMPTYING Exam Date: Exam Time: REPORT STATUS: Signed Solid-phase gastric emptying study Reason for examination: GERD with esophagitis; gastritis The protocol used for this study is based on the Consensus Recommendations fo r Gastric Scintigraphy by the [place] [employer] [place] [employer]y and the [...] on 09/21/1856 COPY TO: TAVIA GARCIA MD Otdbve6163-85-50 15:34:00* Test Item Value Reference Range Interpretation [...] 102 mg/dL 74-106 N Performed by certified rough 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 [facility] BASIC METABOLIC LXOKY7188-86-57 11:27:00* Test Item Value Reference Range Interpretation [...] CA) 8.6 mg/dL 8.5-10.1 N CBC W/AUTO [id number] 11:02:00* Test Item Value Reference Range Interpretation [...] DIFF REQUIRED (test code = MDIFF) NO HZNHTB3538-20-67 07:41:00* Test Item Value Reference Range Interpretation Comments GLUBED (test code = GLUBED) 111 mg/dL 74-106 H Performed by certified rough 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 [facility]2019-05-10 21:20:00* Test Item Value Reference Range Interpretation Comments GLUBED (test code = GLUBED) 201 mg/dL 74-106 H Performed by certified rough 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 [facility]2019-05-10 16:36:00* Test Item Value Reference Range Interpretation Comments GLUBED (test code = GLUBED) 214 mg/dL 74-106 H Performed by certified rough 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 [facility] VYAYWU4818-83-47 12:00:00* Test Item Value Reference Range Interpretation Comments GLUBED (test code = GLUBED) 266 mg/dL 74-106 H Performed by certified rough 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 [facility] [id number] 07:31:00* Test Item Value Reference Range Interpretation Comments GLUBED (test code = GLUBED) 252 mg/dL 74-106 H Performed by certified rough 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 [facility] XJANFG0780-74-53 21:20:00* Test Item Value Reference Range Interpretation Comments GLUBED (test code = GLUBED) 109 mg/dL 74-106 H Performed by certified rough 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 [facility] [id number] 16:47:00* Test Item Value Reference Range Interpretation Comments GLUBED (test code = GLUBED) 328 mg/dL 74-106 H Performed by certified rough 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 [facility] WFGYYD7270-02-55 11:32:00* Test Item Value Reference Range Interpretation Comments GLUBED (test code = GLUBED) 145 mg/dL 74-106 H Performed by certified rough 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 [facility] VSWQEH4616-65-56 07:54:00* Test Item Value Reference Range Interpretation Comments GLUBED (test code = GLUBED) 347 mg/dL 74-106 H Performed by certified rough 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 [facility] CBC W/AUTO [id number] 07:28:00* Test Item Value Reference Range Interpretation [...] (test code = MDIFF) NO BASIC METABOLIC [id number] 07:10:00* Test Item Value Reference Range Interpretation [...] CA) 8.8 mg/dL 8.5-10.1 N BASIC METABOLIC [id number] 06:59:00* Test Item Value Reference Range Interpretation [...] CALCIUM (test code = CA) mg/dL 8.5-10.1 [id number] 22:44:00* Test Item Value Reference Range Interpretation Comments GLUBED (test code = GLUBED) 364 mg/dL 74-106 H Performed by certified rough 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 [facility] BASIC METABOLIC OIGEN5462-92-30 17:43:00* Test Item Value Reference Range Interpretation [...] CA) 9.9 mg/dL 8.5-10.1 N HEPATIC FUNCTION [id number] 17:43:00* Test Item Value Reference Range Interpretation [...] reference range due to change in reagent. [id number] 17:43:00* Test Item Value Reference Range Interpretation Comments LIPASE (test code = LIP) 18 U/L 73.0-393.0 L BASIC METABOLIC [id number] 17:22:00* Test Item Value Reference Range Interpretation [...] code = CA) mg/dL 8.5-10.1 HEPATIC FUNCTION [id number] 17:22:00* Test Item Value Reference Range Interpretation [...] TOTAL (test code = ALKP) IUnit/L 45-117 [id number] 17:22:00* Test Item Value Reference Range Interpretation Comments LIPASE (test code = LIP) U/L 73.0-393.0 URINALYSIS [id number] 17:00:00* Test Item Value Reference Range Interpretation [...] FEW #/LPF FEW Urine Source? Clean CatchURINALYSIS ZQEUOVMP6014-32-63 16:55:00* Test Item Value Reference Range Interpretation [...] HPF NONE Urine Source? Clean CatchCBC W/O [id number] 16:40:00* Test Item Value Reference Range Interpretation [...] MPV) 10.7 fL 6.7-11.0 N CBC W/O [id number] 16:37:00* Test Item Value Reference Range Interpretation [...] (test code = MPV) fL 6.7-11.0 Bedside Pyckafo0487-01-64 08:08:00* Test Item Value Reference Range Interpretation Comments Bedside Glucose (test code = 94432-4) 217 70-120 H Meter ID: [id number] [facility] Glucose 2018-07-07 08:08:00* Test Item Value Reference Range Interpretation Comments Bedside Glucose (test code = 35955-7) 217 70-120 H Meter ID: [id number] venture between [facility] Glucose 2018-07-07 08:08:00* Test Item Value Reference Range Interpretation Comments Bedside Glucose (test code = 20457-0) 217 70-120 H Meter ID: [id number] [facility] Level 2018-07-07 06:31:00* Test Item Value Reference Range Interpretation Comments Magnesium Level (test code = 61083-7) 1.4 1.3-2.1 [facility]2019-04-10 06:31:00* Test Item Value Reference Range Interpretation Comments Magnesium Level (test code = 18614-5) 1.4 1.3-2.1 [facility]2019-04-10 06:31:00* Test Item Value Reference Range Interpretation Comments Magnesium Level (test code = 77027-5) 1.4 1.3-2.1 [facility]2019-04-10 06:31:00* Test Item Value Reference Range Interpretation Comments Magnesium Level (test code = 96240-4) 1.4 1.3-2.1 [facility] Xnqwg6725-34-20 06:27:00* Test Item Value Reference Range Interpretation Comments Sodium Level (test code = 2951-2) 137 136-145 [facility] CampusPotassium Frsxu7150-93-11 06:27:00* Test Item Value Reference Range Interpretation [...] [facility] CampusCarbon Dioxide Esfni1472-43-23 06:27:00* Test Item Value Reference Range Interpretation Comments Carbon Dioxide Level (test code = 2028-9) 32 22-29 H [facility] CampusAnion Uxf2889-58-98 06:27:00* Test Item Value Reference Range Interpretation Comments Anion Gap (test code = 87165-3) 11.7 8-16 [facility] CampusBlood Urea Zntbkggz0778-87-72 06:27:00* Test Item Value Reference Range Interpretation Comments Blood Urea Nitrogen (test code = 3094-0) 6 7-26 L [facility] CampusCreatinine2019-04-10 06:27:00* Test Item Value Reference Range Interpretation Comments Creatinine (test code = 2160-0) 0.85 0.72-1.25 [facility] CampusBUN/Creatinine Kpkkz1361-02-33 06:27:00* Test Item Value Reference Range Interpretation Comments BUN/Creatinine Ratio (test code = 3097-3) 7 6-25 [facility] CampusEstimat Glomerular Filtration Rate 2018-07-07 06:27:00* Test Item Value Reference Range Interpretation Comments Estimat Glomerular Filtration Rate (test code = 609719171) > 60 >60 Ranges were taken from the National Kidney Disease Education Program and the [facility] literature.Reference ranges:60 or greater: Fqgyfa52-15 ( for 3 consecutive months): Chronic kidney disease 15 or less: Kidney failureThe Hospitals of Providence Horizon City CampusGlucose Jqlkz8310-58-73 06:27:00* Test Item Value Reference Range Interpretation Comments Glucose Level (test code = CVA5095) 136 74-118 H [facility] CampusCalcium Mnjwd9408-89-69 06:27:00* Test Item Value Reference Range Interpretation Comments Calcium Level (test code = 41307-9) 8.4 8.4-10.2 [facility] CampusTotal Lrqwuysxn3780-74-02 06:27:00* Test Item Value Reference Range Interpretation [...] [facility] CampusTotal Aurebla9625-06-18 06:27:00* Test Item Value Reference Range Interpretation Comments Total Protein (test code = 2885-2) 5.8 6.5-8.1 L [facility] CampusAlbumin2019-04-10 06:27:00* Test Item Value Reference Range Interpretation Comments Albumin (test code = 1751-7) 3.1 3.5-5.0 L [facility] CampusGlobulin2019-04-10 06:27:00* Test Item Value Reference Range Interpretation Comments Globulin (test code = 00738-2) 2.7 2.3-3.5 [facility] CampusAlbumin/Globulin Iwnbv2409-14-45 06:27:00 * Test Item Value Reference Range Interpretation Comments Albumin/Globulin Ratio (test code = 1759-0) 1.1 0.8-2.0 [facility] [facility] CampusAlkaline Zfawnofeusg4372-65-38 06:27:00* Test Item Value Reference Range Interpretation Comments Alkaline Phosphatase (test code = 6768-6) 68 40-150 [facility]odium Eztmv4228-66-06 06:27:00* Test Item Value Reference Range Interpretation Comments Sodium Level (test code = 2951-2) 137 136-145 [facility]Potassium Vkyns5824-96-92 06:27:00* Test Item Value Reference Range Interpretation Comments Potassium Level (test code = 2823-3) 2.7 3.5-5.1 LL Results repeated and called to [place] at 0624 on 07/07/18 by iLsa henry Read back and verified.[facility] CampusChloride Level 2018-07-07 06:27:00* Test Item Value Reference Range Interpretation Comments Chloride Level (test code = 2075-0) 96 98-107 L [facility] CampusCarbon Dioxide Payas5771-12-21 06:27:00* Test Item Value Reference Range Interpretation Comments Carbon Dioxide Level (test code = 2028-9) 32 22-29 H [facility] CampusAnion Zzu2866-90-45 06:27:00* Test Item Value Reference Range Interpretation Comments Anion Gap (test code = 88251-1) 11.7 8-16 [facility] CampusBlood Urea Nmfsixqk7377-67-14 06:27:00* Test Item Value Reference Range Interpretation Comments Blood Urea Nitrogen (test code = 3094-0) 6 7-26 L [facility] CampusCreatinine2019-04-10 06:27:00* Test Item Value Reference Range Interpretation Comments Creatinine (test code = 2160-0) 0.85 0.72-1.25 [facility] CampusBUN/Creatinine Goejs5966-32-35 06:27:00* Test Item Value Reference Range Interpretation Comments BUN/Creatinine Ratio (test code = 3097-3) 7 6-25 [facility] CampusEstimat Glomerular Filtration Rate 2018-07-07 06:27:00* Test Item Value Reference Range Interpretation Comments Estimat Glomerular Filtration Rate (test code = 482951824) > 60 >60 Ranges were taken from the National Kidney Disease Education Program and the [facility] Foundation literature.Reference ranges:60 or greater: Didnxc75-37 ( for 3 consecutive months): Chronic kidney disease 15 or less: Kidney failureThe Hospitals of [facility] CampusGlucose Njycp0238-88-74 06:27:00* Test Item Value Reference Range Interpretation Comments Glucose Level (test code = RAP5747) 136 74-118 H [facility] CampusCalcium Hewrr2021-81-41 06:27:00* Test Item Value Reference Range Interpretation Comments Calcium Level (test code = 58269-3) 8.4 8.4-10.2 [facility] CampusTotal Lfnkbzrfi6471-36-70 06:27:00* Test Item Value Reference Range Interpretation [...] [facility] CampusTotal Bkhraty5839-10-65 06:27:00* Test Item Value Reference Range Interpretation Comments Total Protein (test code = 2885-2) 5.8 6.5-8.1 L [facility] CampusAlbumin2019-04-10 06:27:00* Test Item Value Reference Range Interpretation Comments Albumin (test code = 1751-7) 3.1 3.5-5.0 L [facility] CampusGlobulin2019-04-10 06:27:00* Test Item Value Reference Range Interpretation Comments Globulin (test code = 32128-3) 2.7 2.3-3.5 [facility] CampusAlbumin/Globulin Cvoex3195-62-19 06:27:00 * Test Item Value Reference Range Interpretation Comments Albumin/Globulin Ratio (test code = 1759-0) 1.1 0.8-2.0 [facility] CampusAlkaline Jeskqwllqtr5092-20-83 06:27:00* Test Item Value Reference Range Interpretation Comments Alkaline Phosphatase (test code = 6768-6) 68 40-150 [facility] Hospitalodium Tmkew9952-38-60 06:27:00* Test Item Value Reference Range Interpretation Comments Sodium Level (test code = 2951-2) 137 136-145 [facility] CampusPotassium Zixyc9931-78-09 06:27:00* Test Item Value Reference Range Interpretation [...] [facility] CampusCarbon Dioxide Hegjz1070-81-92 06:27:00* Test Item Value Reference Range Interpretation Comments Carbon Dioxide Level (test code = 2028-9) 32 22-29 H [facility] CampusAnion Bfz7922-56-09 06:27:00* Test Item Value Reference Range Interpretation Comments Anion Gap (test code = 71187-4) 11.7 8-16 [facility] CampusBlood Urea Hvvehaif2490-13-66 06:27:00* Test Item Value Reference Range Interpretation Comments Blood Urea Nitrogen (test code = 3094-0) 6 7-26 L [facility] CampusCreatinine2019-04-10 06:27:00* Test Item Value Reference Range Interpretation Comments Creatinine (test code = 2160-0) 0.85 0.72-1.25 [facility] CampusBUN/Creatinine Rglpu0760-29-89 06:27:00* Test Item Value Reference Range Interpretation Comments BUN/Creatinine Ratio (test code = 3097-3) 7 6-25 [facility] CampusEstimat Glomerular Filtration Rate 2018-07-07 06:27:00* Test Item Value Reference Range Interpretation Comments Estimat Glomerular Filtration Rate (test code = 586267997) > 60 >60 Ranges were taken from the National Kidney Disease Education Program and the [facility] Kidney Foundation literature.Reference ranges:60 or greater: Aifoli31-35 ( for 3 consecutive months): Chronic kidney disease 15 or less: Kidney failureThe Hospitals of [facility] CampusGlucose Adrmv4929-15-25 06:27:00* Test Item Value Reference Range Interpretation Comments Glucose Level (test code = FVK0853) 136 74-118 H [facility] CampusCalcium Emjku1068-07-77 06:27:00* Test Item Value Reference Range Interpretation Comments Calcium Level (test code = 31273-0) 8.4 8.4-10.2 [facility] CampusTotal Eoixvweaj7396-88-88 06:27:00* Test Item Value Reference Range Interpretation [...] [facility] CampusTotal Mmlymzj1553-23-23 06:27:00* Test Item Value Reference Range Interpretation Comments Total Protein (test code = 2885-2) 5.8 6.5-8.1 L [facility] CampusAlbumin2019-04-10 06:27:00* Test Item Value Reference Range Interpretation Comments Albumin (test code = 1751-7) 3.1 3.5-5.0 L [facility] CampusGlobulin2019-04-10 06:27:00* Test Item Value Reference Range Interpretation Comments Globulin (test code = 71903-6) 2.7 2.3-3.5 [facility] CampusAlbumin/Globulin Xgktf3532-61-96 06:27:00 * Test Item Value Reference Range Interpretation Comments Albumin/Globulin Ratio (test code = 1759-0) 1.1 0.8-2.0 [facility] CampusAlkaline Dtnlvrznxbb8558-42-90 06:27:00* Test Item Value Reference Range Interpretation Comments Alkaline Phosphatase (test code = 6768-6) 68 40-150 [facility] CampusTotal Ytfywlxhh0944-97-84 06:27:00* Test Item Value Reference Range Interpretation [...] [facility] CampusTotal Pswpcat1124-80-98 06:27:00* Test Item Value Reference Range Interpretation Comments Total Protein (test code = 2885-2) 5.8 6.5-8.1 L [facility] CampusAlbumin2019-04-10 06:27:00* Test Item Value Reference Range Interpretation Comments Albumin (test code = 1751-7) 3.1 3.5-5.0 L [facility] CampusGlobulin2019-04-10 06:27:00* Test Item Value Reference Range Interpretation Comments Globulin (test code = 55122-5) 2.7 2.3-3.5 [facility] CampusAlbumin/Globulin Cktzc6522-12-52 06:27:00 * Test Item Value Reference Range Interpretation Comments Albumin/Globulin Ratio (test code = 1759-0) 1.1 0.8-2.0 [facility] CampusAlkaline Tdetwvehdpb6173-14-73 06:27:00* Test Item Value Reference Range Interpretation Comments Alkaline Phosphatase (test code = 6768-6) 68 40-150 [facility] CampusTotal Lqconofzl9719-91-77 06:27:00* Test Item Value Reference Range Interpretation [...] 0-55 [facility] CampusTostew[facility] Xhxoqgu3594-24-29 06:27:00* Test Item Value Reference Range Interpretation Comments Total Protein (test code = 2885-2) 5.8 6.5-8.1 L [facility] CampusAlbumin2019-04-10 06:27:00* Test Item Value Reference Range Interpretation Comments Albumin (test code = 1751-7) 3.1 3.5-5.0 L [facility] CampusGlobulin2019-04-10 06:27:00* Test Item Value Reference Range Interpretation Comments Globulin (test code = 77063-8) 2.7 2.3-3.5 [facility] CampusAlbumin/Globulin Flqok0294-80-13 06:27:00 * Test Item Value Reference Range Interpretation Comments Albumin/Globulin Ratio (test code = 1759-0) 1.1 0.8-2.0 [facility] CampusAlkaline Lguebwcuhtm6809-81-34 06:27:00* Test Item Value Reference Range Interpretation Comments Alkaline Phosphatase (test code = 6768-6) 68 40-150 [facility] CampusTotal Swzjyxoxm2522-57-21 06:27:00* Test Item Value Reference Range Interpretation [...] (test code = 1742-6) < 6 0-55 [facility] Areatal Vgaehco9670-01-51 06:27:00* Test Item Value Reference Range Interpretation Comments Total Protein (test code = 2885-2) 5.8 6.5-8.1 L [facility] CampusAlbumin2019-04-10 06:27:00* Test Item Value Reference Range Interpretation Comments Albumin (test code = 1751-7) 3.1 3.5-5.0 L [facility] CampusGlobulin2019-04-10 06:27:00* Test Item Value Reference Range Interpretation Comments Globulin (test code = 98599-6) 2.7 2.3-3.5 [facility] CampusAlbumin/Globulin Ltlwq4322-45-19 06:27:00 * Test Item Value Reference Range Interpretation Comments Albumin/Globulin Ratio (test code = 1759-0) 1.1 0.8-2.0 [facility] CampusAlkaline Uucztixfhrj2224-22-07 06:27:00* Test Item Value Reference Range Interpretation Comments Alkaline Phosphatase (test code = 6768-6) 68 40-150 [facility] CampusWhite Blood Ranrb7601-35-06 05:57:00* Test Item Value Reference Range Interpretation Comments White Blood Count (test code = 6690-2) 7.71 4.8-10.8 [facility] CampusRed Blood Uezpv1282-22-52 05:57:00* Test Item Value Reference Range Interpretation Comments Red Blood Count (test code = 789-8) 3.90 4.3-5.7 L [facility] CampusHemoglobin2019-04-10 05:57:00* Test Item Value Reference Range Interpretation Comments Hemoglobin (test code = 80388-1) 11.2 14.0-18.0 L [facility] CampusHematocrit2019-04-10 05:57:00* Test Item Value Reference Range Interpretation Comments Hematocrit (test code = 4544-3) 33.8 38.2-49.6 L [facility] CampusMean Corpuscular Zsdaai6779-16-80 05:57:00* Test Item Value Reference Range Interpretation Comments Mean Corpuscular Volume (test code = 787-2) 86.7 81-99 [facility] CampusMean Corpuscular Zliijvepkw6839-17-07 05:57:00* Test Item Value Reference Range Interpretation Comments Mean Corpuscular Hemoglobin (test code = 785-6) 28.7 28-32 [facility] CampusMean Corpuscular Hemoglobin Concent 2018-07-07 05:57:00* Test Item Value Reference Range Interpretation Comments Mean Corpuscular Hemoglobin Concent (test code = 786-4) 33.1 31-35 [facility] CampusRed Cell Distribution Orpaz3052-01-26 05:57:00* Test Item Value Reference Range Interpretation Comments Red Cell Distribution Width (test code = 24400-1) 13.2 11.7 -14.4 [facility] CampusPlatelet Inbnc2721-63-48 05:57:00* Test Item Value Reference Range Interpretation Comments Platelet Count (test code = 777-3) 182 140-360 [facility] CampusNeutrophils (%) (Auto)2018-07-07 05:57:00 * Test Item Value Reference Range Interpretation Comments Neutrophils (%) (Auto) (test code = 68842-2) 54.0 38.7-80.0 [facility] [...] Comments Lymphocytes # (Auto) (test code = 85393-9) 1.6 1.0-3.2 [facility] [...] [facility] CampusWhite Blood Eqsix4863-34-30 05:57:00* Test Item Value Reference Range Interpretation Comments White Blood Count (test code = 6690-2) 7.71 4.8-10.8 [facility] CampusRed Blood Qrqsb1931-08-71 05:57:00* Test Item Value Reference Range Interpretation Comments Red Blood Count (test code = 789-8) 3.90 4.3-5.7 L [facility] CampusHemoglobin2019-04-10 05:57:00* Test Item Value Reference Range Interpretation Comments Hemoglobin (test code = 05383-2) 11.2 14.0-18.0 L [facility] CampusHematocrit2019-04-10 05:57:00* Test Item Value Reference Range Interpretation Comments Hematocrit (test code = 4544-3) 33.8 38.2-49.6 L [facility] CampusMean Corpuscular Vpwjli8486-02-95 05:57:00* Test Item Value Reference Range Interpretation Comments Mean Corpuscular Volume (test code = 787-2) 86.7 81-99 [facility] CampusMean Corpuscular Unjzgutosm3111-19-06 05:57:00* Test Item Value Reference Range Interpretation Comments Mean Corpuscular Hemoglobin (test code = 785-6) 28.7 28-32 [facility] CampusMean Corpuscular Hemoglobin Concent 2018-07-07 05:57:00* Test Item Value Reference Range Interpretation Comments Mean Corpuscular Hemoglobin Concent (test code = 786-4) 33.1 31-35 [facility] CampusRed Cell Distribution Qlgol6258-16-19 05:57:00* Test Item Value Reference Range Interpretation Comments Red Cell Distribution Width (test code = 05983-9) 13.2 11.7 -14.4 [facility] CampusPlatelet Ycbck7492-49-41 05:57:00* Test Item Value Reference Range Interpretation Comments Platelet Count (test code = 777-3) 182 140-360 [facility] CampusNeutrophils (%) (Auto)2018-07-07 05:57:00 * Test Item Value Reference Range Interpretation Comments Neutrophils (%) (Auto) (test code = 29928-4) 54.0 38.7-80.0 [facility] [...] Comments Lymphocytes # (Auto) (test code = 43594-9) 1.6 1.0-3.2 [facility] [...] [facility] CampusWhite Blood Slend1703-89-65 05:57:00* Test Item Value Reference Range Interpretation Comments White Blood Count (test code = 6690-2) 7.71 4.8-10.8 [facility] CampusRed Blood Pgsbc4926-12-17 05:57:00* Test Item Value Reference Range Interpretation Comments Red Blood Count (test code = 789-8) 3.90 4.3-5.7 L [facility] CampusHemoglobin2019-04-10 05:57:00* Test Item Value Reference Range Interpretation Comments Hemoglobin (test code = 86823-2) 11.2 14.0-18.0 L [facility] CampusHematocrit2019-04-10 05:57:00* Test Item Value Reference Range Interpretation Comments Hematocrit (test code = 4544-3) 33.8 38.2-49.6 L [facility] CampusMean Corpuscular Ordonc1528-24-31 05:57:00* Test Item Value Reference Range Interpretation Comments Mean Corpuscular Volume (test code = 787-2) 86.7 81-99 [facility] CampusMean Corpuscular Odtmxnwgzx3204-84-88 05:57:00* Test Item Value Reference Range Interpretation Comments Mean Corpuscular Hemoglobin (test code = 785-6) 28.7 28-32 [facility] Hemoglobin Concent 2018-07-07 05:57:00* Test Item Value Reference Range Interpretation Comments Mean Corpuscular Hemoglobin Concent (test code = 786-4) 33.1 31-35 [facility] CampusRed Cell Distribution Qeanf9941-06-47 05:57:00* Test Item Value Reference Range Interpretation Comments Red Cell Distribution Width (test code = 40049-7) 13.2 11.7 -14.4 [facility] CampusPlatelet Bzmeu6156-58-33 05:57:00* Test Item Value Reference Range Interpretation Comments Platelet Count (test code = 777-3) 182 140-360 [facility] CampusNeutrophils (%) (Auto)2018-07-07 05:57:00 * Test Item Value Reference Range Interpretation Comments Neutrophils (%) (Auto) (test code = 50569-8) 54.0 38.7-80.0 [facility] [...] Comments Lymphocytes # (Auto) (test code = 28806-2) 1.6 1.0-3.2 [facility] [...] [facility] CampusAmylase Jkhqi4777-00-07 04:08:00* Test Item Value Reference Range Interpretation Comments Amylase Level (test code = 1798-8) 48 25-125 [facility] CampusLipase2019-04-05 04:08:00* Test Item Value Reference Range Interpretation Comments Lipase (test code = 3040-3) < 4 8-78 L [facility] CampusAmylase Ohypv4640-10-56 04:08:00* Test Item Value Reference Range Interpretation Comments Amylase Level (test code = 1798-8) 48 25-125 [facility] CampusAmylase Lphuh1917-29-23 04:08:00* Test Item Value Reference Range Interpretation Comments Amylase Level (test code = 1798-8) 48 25-125 [facility] CampusAmylase Plktd0557-01-82 04:08:00* Test Item Value Reference Range Interpretation Comments Amylase Level (test code = 1798-8) 48 25-125 [facility] CampusAmylase Nlgpr4097-52-13 04:08:00* Test Item Value Reference Range Interpretation Comments Amylase Level (test code = 1798-8) 48 25-125 [facility] CampusAmylase Uwtmx6038-02-93 04:08:00* Test Item Value Reference Range Interpretation Comments Amylase Level (test code = 1798-8) 48 25-125 [facility] CampusUrine DJD5519-42-39 01:56:00* Test Item Value Reference Range Interpretation Comments Urine WBC (test code = 5821-4) 0-5 0-5 [facility] CampusUrine PFJ3639-23-01 01:56:00* Test Item Value Reference Range Interpretation Comments Urine RBC (test code = 30280-2) 0-5 0-5 [facility] CampusUrine Msjtkroc6480-07-25 01:56:00* Test Item Value Reference Range Interpretation Comments Urine Bacteria (test code = 37127-3) FEW NONE [facility] CampusUrine Epithelial Snkxw5608-56-78 01:56:00 * Test Item Value Reference Range Interpretation Comments Urine Epithelial Cells (test code = 81943-1) FEW NONE [facility] Blrbx9025-82-04 01:56:00* Test Item Value Reference Range Interpretation Comments Urine Mucus (test code = 8247-9) FEW RARE H [facility] COC8522-40-78 01:56:00* Test Item Value Reference Range Interpretation Comments Urine WBC (test code = 5821-4) 0-5 0-5 [facility] LJG5253-52-95 01:56:00* Test Item Value Reference Range Interpretation Comments Urine RBC (test code = 72927-3) 0-5 0-5 [facility] Qfkmnwcx3088-21-94 01:56:00* Test Item Value Reference Range Interpretation Comments Urine Bacteria (test code = 96552-9) FEW NONE [facility] CampusUrine Epithelial Srjqp5455-27-53 01:56:00 * Test Item Value Reference Range Interpretation Comments Urine Epithelial Cells (test code = 58051-6) FEW NONE [facility] CampusUrine Yabfq4905-44-23 01:56:00* Test Item Value Reference Range Interpretation Comments Urine Mucus (test code = 8247-9) FEW RARE H [facility] RHD4479-64-30 01:56:00* Test Item Value Reference Range Interpretation Comments Urine WBC (test code = 5821-4) 0-5 0-5 [facility] JOE6942-44-97 01:56:00* Test Item Value Reference Range Interpretation Comments Urine RBC (test code = 75654-1) 0-5 0-5 [facility] Ymagiawi5427-72-67 01:56:00* Test Item Value Reference Range Interpretation Comments Urine Bacteria (test code = 84826-5) FEW NONE [facility] CampusUrine Epithelial Mfjaf5583-98-03 01:56:00 * Test Item Value Reference Range Interpretation Comments Urine Epithelial Cells (test code = 40221-3) FEW NONE [facility] Sovlr7045-14-36 01:56:00* Test Item Value Reference Range Interpretation Comments Urine Mucus (test code = 8247-9) FEW RARE H [facility] CampusUrine Ufgql3664-50-34 01:56:00* Test Item Value Reference Range Interpretation Comments Urine Mucus (test code = 8247-9) FEW RARE H [facility] CampusUrine Thxcn4687-96-03 01:56:00* Test Item Value Reference Range Interpretation Comments Urine Mucus (test code = 8247-9) FEW RARE H [facility] Mycnc8586-66-43 01:56:00* Test Item Value Reference Range Interpretation Comments Urine Mucus (test code = 8247-9) FEW RARE H [facility] CampusUrine Zqzvr4179-44-65 01:47:00* Test Item Value Reference Range Interpretation Comments Urine Color (test code = 5778-6) YELLOW YELLOW [facility] CampusUrine Rnpyxhx1782-89-46 01:47:00* Test Item Value Reference Range Interpretation Comments Urine Clarity (test code = 29108-5) CLEAR CLEAR [facility] CampusUrine Specific Uesqtli6725-79-33 01:47:00 * Test Item Value Reference Range Interpretation Comments Urine Specific [place] (test code = 5811-5) 1.020 1.010-1.02 5 [facility] CampusU[facility] dC9593-64-99 01:47:00* Test Item Value Reference Range Interpretation Comments Urine pH (test code = 05009-2) 8 5-7 H [facility] CampusU[facility] Leukocyte Tkuxycxo7778-95-48 01:47:00* Test Item Value Reference Range Interpretation Comments Urine Leukocyte Esterase (test code = 5799-2) NEGATIVE NEGATIVE [facility] CampusU[facility] Woufbtm3028-34-10 01:47:00* Test Item Value Reference Range Interpretation Comments Urine Nitrite (test code = 35857-8) NEGATIVE NEGATIVE [facility] Jfmlllp5535-97-79 01:47:00* Test Item Value Reference Range Interpretation Comments Urine Protein (test code = 5804-0) 1+ NEGATIVE H [facility] CampusUrine Glucose (UA)2018-07-02 01:47:00* Test Item Value Reference Range Interpretation Comments Urine Glucose (UA) (test code = 2349-9) NEGATIVE NEGATIVE [facility] Yakpotn1196-92-98 01:47:00* Test Item Value Reference Range Interpretation Comments Urine Ketones (test code = 22223-6) 2+ NEGATIVE H [facility] Ryzdeifgxoco5106-15-02 01:47:00* Test Item Value Reference Range Interpretation Comments Urine Urobilinogen (test code = 71793-3) 0.2 0.2-1 [facility] Fcfqgsbrd2849-85-86 01:47:00* Test Item Value Reference Range Interpretation Comments Urine Bilirubin (test code = 1978-6) 1+ NEGATIVE H Confirmatory test currently unavailable. False positive results may occur.[facility] Rbdty2498-57-21 01:47:00* Test Item Value Reference Range Interpretation Comments Urine Blood (test code = 23044-2) NEGATIVE NEGATIVE [facility] Lczbr8662-19-81 01:47:00* Test Item Value Reference Range Interpretation Comments Urine Color (test code = 5778-6) YELLOW YELLOW [facility] Jltuwol3051-69-81 01:47:00* Test Item Value Reference Range Interpretation Comments Urine Clarity (test code = 88485-9) CLEAR CLEAR [facility] Specific Sqleuxc4553-98-92 01:47:00 * Test Item Value Reference Range Interpretation Comments Urine Specific [place] (test code = 5811-5) 1.020 1.010-1.02 5 [facility] oN1109-28-73 01:47:00* Test Item Value Reference Range Interpretation Comments Urine pH (test code = 61701-9) 8 5-7 H [facility] Leukocyte Opneilzh3546-77-68 01:47:00* Test Item Value Reference Range Interpretation Comments Urine Leukocyte Esterase (test code = 5799-2) NEGATIVE [facility]GATIVE [facility] Cmiimvv6344-64-53 01:47:00* Test Item Value Reference Range Interpretation Comments Urine Nitrite (test code = 60778-0) NEGATIVE NEGATIVE [facility] Mvxthos1887-30-76 01:47:00* Test Item Value Reference Range Interpretation Comments Urine Protein (test code = 5804-0) 1+ NEGATIVE H [facility] Glucose (UA)2018-07-02 01:47:00* Test Item Value Reference Range Interpretation Comments Urine Glucose (UA) (test code = 2349-9) NEGATIVE NEGATIVE [facility] Jclnnaq3995-57-02 01:47:00* Test Item Value Reference Range Interpretation Comments Urine Ketones (test code = 00105-9) 2+ NEGATIVE H [facility] Gvkxijhhxdjq0754-13-70 01:47:00* Test Item Value Reference Range Interpretation Comments Urine Urobilinogen (test code = 71703-6) 0.2 0.2-1 [facility] Wbxxvkvzv3654-63-84 01:47:00* Test Item Value Reference Range Interpretation Comments Urine Bilirubin (test code = 1978-6) 1+ NEGATIVE H Confirmatory test currently unavailable. False positive results may occur.[facility] Ncpdk2087-44-36 01:47:00* Test Item Value Reference Range Interpretation Comments Urine Blood (test code = 11918-0) NEGATIVE NEGATIVE [facility] Ocjsx1114-66-97 01:47:00* Test Item Value Reference Range Interpretation Comments Urine Color (test code = 5778-6) YELLOW YELLOW [facility] Rzciqrz6948-04-68 01:47:00* Test Item Value Reference Range Interpretation Comments Urine Clarity (test code = 60422-8) CLEAR CLEAR [facility] Specific Atgilfx6022-50-72 01:47:00 * Test Item Value Reference Range Interpretation Comments Urine Specific [place] (test code = 5811-5) 1.020 1.010-1.02 5 [facility] dH3631-30-26 01:47:00* Test Item Value Reference Range Interpretation Comments Urine pH (test code = 62400-8) 8 5-7 H [facility] Leukocyte Iqwuwebu5773-52-56 01:47:00* Test Item Value Reference Range Interpretation Comments Urine Leukocyte Esterase (test code = 5799-2) NEGATIVE NEGATIVE [facility] Qyymbvj2467-72-55 01:47:00* Test Item Value Reference Range Interpretation Comments Urine Nitrite (test code = 56348-9) NEGATIVE NEGATIVE [facility] Tskiubg6877-10-91 01:47:00* Test Item Value Reference Range Interpretation Comments Urine Protein (test code = 5804-0) 1+ NEGATIVE H [facility] Glucose (UA)2018-07-02 01:47:00* Test Item Value Reference Range Interpretation Comments Urine Glucose (UA) (test code = 2349-9) NEGATIVE NEGATIVE [facility] Humfrlk9055-38-79 01:47:00* Test Item Value Reference Range Interpretation Comments Urine Ketones (test code = 52540-6) 2+ NEGATIVE H [facility] Yhkvfrneryrq0268-70-04 01:47:00* Test Item Value Reference Range Interpretation Comments Urine Urobilinogen (test code = 05307-5) 0.2 0.2-1 [facility] Mrkvyrmgy4493-74-32 01:47:00* Test Item Value Reference Range Interpretation Comments Urine Bilirubin (test code = 1978-6) 1+ NEGATIVE H Confirmatory test currently unavailable. False positive results may occur.[facility] Szrta5584-33-01 01:47:00* Test Item Value Reference Range Interpretation Comments Urine Blood (test code = 78768-7) NEGATIVE NEGATIVE [facility] SHRMEXKC2336-58-13 10:20:00 [facility] [address] [place] [address] Patient Name: BREE LINDSAY MR #: [id number] : [id number] Age/Sex: 42/M Req #: [id number] Adm Physician: Ordered by: TAVIA GARCIA MD Report #: [id number] Location: Room/Bed: Procedure: 2793-6922 U S/US ABDOMEN COMPLETE Exam Date: Exam [...] Hepatomegal y. 2. Otherwise, unremarkable. Signed by: Ana HuitronO., M.M .M. on 06/23/2018 10:23 AM Dictated By: CATARINO SRIVASTAVA DO Electronically Sig lizette By: CATARINO SRIVASTAVA DO on 06/23/18 1023 Transcribed By: PAULA on 06/23/18 102 3 COPY TO: TAVIA GARCIA MD [id number] 05:55:00* Test Item Value Reference Range Interpretation Comments GLUBED (test code = GLUBED) 195 mg/dL 74-106 H Performed by certified rough 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 [facility] [id number] 17:33:00* Test Item Value Reference Range Interpretation Comments GLUBED (test code = GLUBED) 151 mg/dL 74-106 H Performed by certified rough 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 [facility] BASIC METABOLIC JMORB3280-16-17 15:46:00* Test Item Value Reference Range Interpretation [...] code = CA) 7.7 mg/dL 8.5-10.1 L [id number] 12:16:00* Test Item Value Reference Range Interpretation Comments GLUBED (test code = GLUBED) 136 mg/dL 74-106 H Performed by certified rough 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 [facility] IOHUOO5149-30-66 07:53:00* Test Item Value Reference Range Interpretation Comments GLUBED (test code = GLUBED) 129 mg/dL 74-106 H Performed by certified rough 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 [facility] COMPREHENSIVE METABOLIC [id number] 06:41:00* Test Item Value Reference Range Interpretation Comments SODIUM (test code = NA) 139 mmol/L 136-145 N POTASSIUM (test code = K) 2.7 mmol/L 3.5-5.1 Re sults called to [id number] by [email or web address] 05/16/18 0636Critical results verified and [...] due to change in reagent. CBC W/AUTO [id number] 05:31:00* Test Item Value Reference Range Interpretation [...] code = NRBC#) 0.00 K/mm3 0.0-0.1 N [id number] 20:43:00* Test Item Value Reference Range Interpretation Comments GLUBED (test code = GLUBED) 122 mg/dL 74-106 H Performed by certified rough 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 [facility] [id number] 17:15:00* Test Item Value Reference Range Interpretation Comments GLUBED (test code = GLUBED) 145 mg/dL 74-106 H Performed by certified rough 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 [facility] [id number] 11:46:00* Test Item Value Reference Range Interpretation Comments GLUBED (test code = GLUBED) 228 mg/dL 74-106 H Performed by certified rough 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 [facility] [id number] 07:49:00* Test Item Value Reference Range Interpretation Comments GLUBED (test code = GLUBED) 123 mg/dL 74-106 H Performed by certified rough 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 [facility] COMPREHENSIVE METABOLIC [id number] 07:19:00* Test Item Value Reference Range Interpretation Comments SODIUM (test code = NA) 140 mmol/L 136-145 N POTASSIUM (test code = K) 2.9 mmol/L 3.5-5.1 L Re sults called to [id number] by [email or web address] 05/15/18 0716Critical results verified and read back [...] due to change in reagent. CBC W/AUTO [id number] 06:20:00* Test Item Value Reference Range Interpretation [...] code = NRBC#) 0.00 K/mm3 0.0-0.1 N [id number] 21:14:00* Test Item Value Reference Range Interpretation Comments GLUBED (test code = GLUBED) 152 mg/dL 74-106 H Performed by certified rough 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 [facility] [id number] 17:16:00* Test Item Value Reference Range Interpretation Comments GLUBED (test code = GLUBED) 140 mg/dL 74-106 H Performed by certified rough 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 [facility] [id number] 11:55:00* Test Item Value Reference Range Interpretation Comments GLUBED (test code = GLUBED) 236 mg/dL 74-106 H Performed by certified rough 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 [facility] COMPREHENSIVE METABOLIC [id number] 08:50:00* Test Item Value Reference Range Interpretation [...] due to change in reagent. COMPREHENSIVE METABOLIC [id number] 08:38:00* Test Item Value Reference Range Interpretation [...] code = ALKP) IUnit/L 45-117 CBC W/AUTO [id number] 08:00:00* Test Item Value Reference Range Interpretation [...] DIFF REQUIRED (test code = MDIFF) NO [id number] 07:51:00* Test Item Value Reference Range Interpretation Comments GLUBED (test code = GLUBED) 210 mg/dL 74-106 H Performed by certified rough 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 [facility] [id number] 20:06:00* Test Item Value Reference Range Interpretation Comments GLUBED (test code = GLUBED) 278 mg/dL 74-106 H Performed by certified rough 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 [facility] [id number] 16:53:00* Test Item Value Reference Range Interpretation Comments GLUBED (test code = GLUBED) 236 mg/dL 74-106 H Performed by certified rough 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 [facility] [id number] 11:31:00* Test Item Value Reference Range Interpretation Comments GLUBED (test code = GLUBED) 269 mg/dL 74-106 H Performed by certified rough 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 [facility] [id number] 10:39:00* Test Item Value Reference Range Interpretation Comments GLUBED (test code = GLUBED) 298 mg/dL 74-106 H Performed by certified rough 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 [facility] COMPREHENSIVE METABOLIC [id number] 06:29:00* Test Item Value Reference Range Interpretation [...] due to change in reagent. COMPREHENSIVE METABOLIC [id number] 06:10:00* Test Item Value Reference Range Interpretation [...] code = ALKP) IUnit/L 45-117 CBC W/AUTO [id number] 05:48:00* Test Item Value Reference Range Interpretation [...] DIFF REQUIRED (test code = MDIFF) NO [id number] 20:52:00* Test Item Value Reference Range Interpretation Comments GLUBED (test code = GLUBED) 238 mg/dL 74-106 H Performed by certified rough 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 [facility] [id number] 15:54:00* Test Item Value Reference Range Interpretation Comments GLUBED (test code = GLUBED) 199 mg/dL 74-106 H Performed by certified rough 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 [facility] [id number] 11:51:00* Test Item Value Reference Range Interpretation Comments GLUBED (test code = GLUBED) 265 mg/dL 74-106 H Performed by certified rough 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 [facility] [id number] 08:20:00* Test Item Value Reference Range Interpretation Comments GLYCOSYLATED HEMOGLOBIN (HA1C) (test code = GLYHGB) 10.6 % HbA1 4. 8-6.0 H ESTIMATED AVERAGE GLUCOSE (test code = EAG) 258 MG/DL COMPREHENSIVE METABOLIC [id number] 08:11:00* Test Item Value Reference Range Interpretation [...] result is a direct measurement.========= THYROID STIMULATING [id number] 08:11:00* Test Item Value Reference Range Interpretation Comments THYROID STIMULATING HORMONE (test code = TSH) 1.020 uIU/mL 0.36-3.7 4 N TSH REFERENCE RANGES: EUTHYROID: 0.35 - 4.3 mIU/mL HYPO : > 5.5 mIU/mL HYPER : < 0.35 mIU/mL COMPREHENSIVE METABOLIC [id number] 07:53:00* Test Item Value Reference Range Interpretation [...] code = LDL) mg/dL 100-129 THYROID STIMULATING [id number] 07:53:00* Test Item Value Reference Range Interpretation Comments THYROID STIMULATING HORMONE (test code = TSH) uIU/mL 0.36-3.7 4 CBC W/AUTO [id number] 07:51:00* Test Item Value Reference Range Interpretation [...] DIFF REQUIRED (test code = MDIFF) NO [id number] 07:10:00* Test Item Value Reference Range Interpretation Comments GLUBED (test code = GLUBED) 350 mg/dL 74-106 H Performed by certified rough 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 [facility] DRUGS OF ABUSE SCREEN [id number] 06:10:00* Test Item Value Reference Range Interpretation [...] code = [place]) NEGATIVE <300 ng/mL URINALYSIS [id number] 05:29:00* Test Item Value Reference Range Interpretation [...] Urine Source? Clean CatchDRUGS OF ABUSE SCREEN [id number] 05:12:00* Test Item Value Reference Range Interpretation [...] METHADONE (test code = [place]) <300 ng/mL [id number] 20:26:00* Test Item Value Reference Range Interpretation Comments GLUBED (test code = GLUBED) 285 mg/dL 74-106 H Performed by certified rough 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 [facility] [id number] 13:32:00* Test Item Value Reference Range Interpretation Comments GLUBED (test code = GLUBED) 159 mg/dL 74-106 H Performed by certified rough 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 [facility] BASIC METABOLIC [id number] 09:38:00* Test Item Value Reference Range Interpretation [...] CA) 8.9 mg/dL 8.5-10.1 N HEPATIC FUNCTION [id number] 09:38:00* Test Item Value Reference Range Interpretation [...] reference range due to change in reagent. [id number] 09:38:00* Test Item Value Reference Range Interpretation Comments LIPASE (test code = LIP) 20 U/L 73.0-393.0 L BASIC METABOLIC [id number] 09:30:00* Test Item Value Reference Range Interpretation [...] code = CA) mg/dL 8.5-10.1 HEPATIC FUNCTION [id number] 09:30:00* Test Item Value Reference Range Interpretation [...] TOTAL (test code = ALKP) IUnit/L 45-117 [id number] 09:30:00* Test Item Value Reference Range Interpretation Comments LIPASE (test code = LIP) U/L 73.0-393.0 CBC W/O [id number] 09:13:00* Test Item Value Reference Range Interpretation [...] code = MPV) 10.6 fL 6.7-11.0 N [id number] 07:28:00* Test Item Value Reference Range Interpretation Comments GLUBED (test code = GLUBED) 173 mg/dL 74-106 H Performed by certified rough 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 [facility] [id number] 20:56:00* Test Item Value Reference Range Interpretation Comments GLUBED (test code = GLUBED) 181 mg/dL 74-106 H Performed by certified rough 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 [facility] [id number] 16:11:00* Test Item Value Reference Range Interpretation Comments GLUBED (test code = GLUBED) 245 mg/dL 74-106 H Performed by certified rough 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 [facility] [id number] 11:55:00* Test Item Value Reference Range Interpretation Comments GLUBED (test code = GLUBED) 309 mg/dL 74-106 H Performed by certified rough 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 [facility] [id number] 08:03:00* Test Item Value Reference Range Interpretation Comments GLUBED (test code = GLUBED) 241 mg/dL 74-106 H Performed by certified rough 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 [facility] [id number] 00:08:00* Test Item Value Reference Range Interpretation Comments GLUBED (test code = GLUBED) 175 mg/dL 74-106 H Performed by certified rough 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 [facility] [id number] 20:00:00* Test Item Value Reference Range Interpretation Comments GLUBED (test code = GLUBED) 167 mg/dL 74-106 H Performed by certified rough 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 [facility] [id number] 16:45:00* Test Item Value Reference Range Interpretation Comments GLUBED (test code = GLUBED) 208 mg/dL 74-106 H Performed by certified rough 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 [facility] [id number] 16:01:00* Test Item Value Reference Range Interpretation Comments GLUBED (test code = GLUBED) 47 mg/dL 74-106 LL Per[facility] by certified rough 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 InstituteNotified Nurse~ [id number] 11:44:00* Test Item Value Reference Range Interpretation Comments GLUBED (test code = GLUBED) 317 mg/dL 74-106 H Performed by certified rough 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 [facility] [id number] 08:20:00* Test Item Value Reference Range Interpretation Comments GLUBED (test code = GLUBED) 271 mg/dL 74-106 H Performed by certified rough 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 [facility] CBC W/AUTO [id number] 05:45:00* Test Item Value Reference Range Interpretation [...] = MDIFF) NO, ONLY SCAN NEEDED DIFFERENTIAL [id number] 05:45:00* Test Item Value Reference Range Interpretation Comments STAIN ACCEPTABILITY (test code = STN ACCEPTABLE) STAIN ACCEPTABLE POLYCHROMASIA (test code = POLC) 1+ HYPOCHROMIA (test code = HYPO) 1+ PLATELET ESTIMATE (test code = PLTEST) ADEQUATE PLATELET MORPHOLOGY (test code = PLTMORPH) NORMAL CBC W/AUTO [id number] 05:08:00* Test Item Value Reference Range Interpretation [...] = MDIFF) NO, ONLY SCAN NEEDED DIFFERENTIAL [id number] 05:08:00* Test Item Value Reference Range Interpretation Comments STAIN ACCEPTABILITY (test code = STN ACCEPTABLE) CABOT RINGS (test code = CAB) MORPHOLOGY COMMENT (test code = MOC) PLATELET ESTIMATE (test code = PLTEST) PLATELET MORPHOLOGY (test code = PLTMORPH) CBC W/AUTO [id number] 05:08:00* Test Item Value Reference Range Interpretation [...] = MDIFF) NO, ONLY SCAN NEEDED DIFFERENTIAL [id number] 05:08:00* Test Item Value Reference Range Interpretation Comments STAIN ACCEPTABILITY (test code = STN ACCEPTABLE) MORPHOLOGY COMMENT (test code = MOC) PLATELET ESTIMATE (test code = PLTEST) PLATELET MORPHOLOGY (test code = PLTMORPH) CBC W/AUTO [id number] 05:08:00* Test Item Value Reference Range Interpretation [...] = MDIFF) NO, ONLY SCAN NEEDED DIFFERENTIAL [id number] 05:08:00* Test Item Value Reference Range Interpretation Comments STAIN ACCEPTABILITY (test code = STN ACCEPTABLE) MORPHOLOGY COMMENT (test code = MOC) PLATELET ESTIMATE (test code = PLTEST) PLATELET MORPHOLOGY (test code = PLTMORPH) CBC W/AUTO [id number] 05:08:00* Test Item Value Reference Range Interpretation [...] = MDIFF) NO, ONLY SCAN NEEDED DIFFERENTIAL [id number] 05:08:00* Test Item Value Reference Range Interpretation Comments STAIN ACCEPTABILITY (test code = STN ACCEPTABLE) CABOT RINGS (test code = CAB) MORPHOLOGY COMMENT (test code = MOC) PLATELET ESTIMATE (test code = PLTEST) PLATELET MORPHOLOGY (test code = PLTMORPH) COMPREHENSIVE METABOLIC [id number] 05:04:00* Test Item Value Reference Range Interpretation [...] due to change in reagent. COMPREHENSIVE METABOLIC [id number] 04:54:00* Test Item Value Reference Range Interpretation [...] TOTAL (test code = ALKP) IUnit/L 45-117 [id number] 21:00:00* Test Item Value Reference Range Interpretation Comments GLUBED (test code = GLUBED) 334 mg/dL 74-106 H Performed by certified rough 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 [facility] [id number] 16:10:00* Test Item Value Reference Range Interpretation Comments GLUBED (test code = GLUBED) 102 mg/dL 74-106 N Performed by certified rough 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 [facility] [id number] 15:59:00* Test Item Value Reference Range Interpretation Comments GLUBED (test code = GLUBED) 339 mg/dL 74-106 H Performed by certified rough 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 [facility] URINALYSIS [id number] 09:47:00* Test Item Value Reference Range Interpretation [...] 0-2 #/HPF 0-5 Urine Source? Clean CatchURINALYSIS [id number] 09:46:00* Test Item Value Reference Range Interpretation [...] HPF 0-5 Urine Source? Clean CatchBASIC METABOLIC [id number] 04:02:00* Test Item Value Reference Range Interpretation [...] CA) 9.3 mg/dL 8.5-10.1 N HEPATIC FUNCTION [id number] 04:02:00* Test Item Value Reference Range Interpretation [...] reference range due to change in reagent. [id number] 04:02:00* Test Item Value Reference Range Interpretation Comments LIPASE (test code = LIP) 22 U/L 73.0-393.0 L BASIC METABOLIC [id number] 03:53:00* Test Item Value Reference Range Interpretation [...] code = CA) mg/dL 8.5-10.1 HEPATIC FUNCTION [id number] 03:53:00* Test Item Value Reference Range Interpretation [...] TOTAL (test code = ALKP) IUnit/L 45-117 [id number] 03:53:00* Test Item Value Reference Range Interpretation Comments LIPASE (test code = LIP) U/L 73.0-393.0 CBC W/O [id number] 03:46:00* Test Item Value Reference Range Interpretation [...] code = MPV) 10.9 fL 6.7-11.0 N [id number] 17:23:00 RUN DATE: 12/16/17 [facility] PAGE 1 RUN TIME: 1723 Specimen Inqui ry RUN USER: INTERFACE PATIENT: BREE LINDSAY ACCT #: [id number] LOC: [facility] U #: [id number] AGE/SX: 42/M ROOM: 2046 RE12/11/17REG DR: Olegario Diaz MD : 75 BED: A DIS: 12/13/17 STATUS: DIS IN TLOC: SPEC #: [id number] RECD: 12/14/17 STATUS: SHAHRAM LUEVANO #: [id number] HUY: 12/11/17- SUBM DR: Kvng Izaguirre MD ENTERED: 12/14/17-1150 SP TYPE: STOMACH OTHR DR: Levi Natarajan i, MD ORDERED: GROSS COPIES TO: Kvng Izaguirre MD [address] [place] [address] Levi Lakhani MD [address] [place] [address] PROCEDURES: GROSS (12/15/17-1304 ) TISSUES: 1. GASTRIC [...] DYSPLASIA NEGATIVE FOR MALIGNANCY MYA/sm D 2) 75856, 92379 CONTINUED ON NEXT PAGE RUN DATE: 12/16/17 [facility] PAGE 2 RUN TIME: 172 3 Specimen Inquiry RUN USER: INTER FACE SPEC #: [id number] PATIENT: BREE LINDSAY #[id number] (Con tinued) MACROSCOPIC The first specimen is [...] measuring 0.2 cm each. GROSS PERFORMED AT [facility] [address] [place] [address] [phone])[phone] MICROSCOPIC MICROSCOPIC PERFORMED AT [facility] All of the stains, including any controls performed, hao swift. [facility] [address] [place] [address] (p)[phone] PERFORMING SITE Diagnosis performed at: [facility], [place] [address] [place], [place] [id number] Signed SIGNATURE ON FILE Leigh Ann Fuller 12/16/17 1723 END OF REPORT
== END 2019-12-06 22:48 | disposition home or self-care (01) ==
LOC: FSED 19:20
DX: K31.84 Gastroparesis (principal); R11.2 Nausea with vomiting, unspecified; E86.0 Dehydration; E11.65 Type 2 diabetes mellitus with hyperglycemia
CPT/HCPCS: 80053; 85025; 99283; J2270 ×2; J2405; J2550; J7030

== ENCOUNTER 2019-12-11 15:58 | Emergency (ER) | payer MEDICARE ==
[~2019-12-11] VITALS: Ht 185.4 cm; Wt 83.0 kg
--- OUTSIDE RECORDS SUMMARY | 2019-12-11 17:11 | XMS REPORT | Clinical Summary ---
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 * POC-Glucose meter (12/14/2018 5:15 PM CDT) Only the most recent of 6 results within the time period is included. POC-Glucose Meter 266 (H)Comment: TESTED AT 70 - 110 mg/dL [facility] [address] [facility] [address] Specimen Blood Performing Organization Address City/State/Zipcode Ph one Number [facility] [place] [phone] [place], [place] [facility] * ECG 12 lead (12/14/2018 10:08 AM CDT) Specimen Narrative Performed At Ventricular Rate 78 BPM GE MUSE Atrial Rate 78 BPM P-R Interval 168 ms QRS Duration 80 ms Q-T Interval 350 ms QTC Calculation(Bazett) 399 ms P [place] 52 degrees R [place] -14 degrees T [place] 35 degrees Normal sinus rhythm Normal ECG No previous ECGs available Confirmed by MD MEGGAN, MARCELINO ([id number] ) on 12/14/2018 2:27:24 PM Procedure Note Interface, External Ris In - 12/14/2018 2:27 PM CDT Ventricular Rate 78 BPM Atrial Rate 78 BPM P-R Interval 168 ms QRS Duration 80 ms Q-T Interval 350 ms QTC Calculation(Bazett) 399 ms P [place] 52 degrees R [place] -14 degrees T [place] 35 degrees Normal sinus rhythm Normal ECG No previous ECGs available Confirmed by MD MEGGAN, MARCELINO ([id number]) on 12/14/2018 2:27:24 PM Performing Organization Address City/State/Zipcode Ph one Number GE [facility] * CBC with platelet count + automated diff (12/14/2018 4:58 AM CDT) Only the most recent of 2 results within the time period is included. WBC 7.5 3.5 - 10.5 K/L [facility] RBC 3.38 (L) 4.63 - 6.08 M/L [facility] Hemoglobin 9.8 (L) 13.7 - 17.5 GM/DL [facility] Hematocrit 31.1 (L) 40.1 - 51.0 % [facility] MCV 92.0 79.0 - 92.2 fL [facility] MCH 29.0 25.7 - 32.2 pg [facility] MCHC 31.5 (L) 32.3 - 36.5 GM/DL [facility] RDW 14.1 11.6 - 14.4 % [facility] Platelets 208Comment: Discordant PLT 150 - 450 K/CU MM [facility] results compared to previous [facility] results; clinical correlation required. MPV 10.4 9.4 - 12.4 fL [facility] nRBC 0 0 - 0 /100 WBC [facility] % Neutros 66 % [facility] % Lymphs 20 % [facility] % Monos 12 % [facility] % Eos 1 % [facility] % Baso 1 % [facility] # Neutros 4.92 1.78 - 5.38 K/L [facility] # Lymphs 1.46 1.32 - 3.57 K/L [facility] # Monos 0.92 (H) 0.30 - 0.82 K/L [facility] # Eos 0.10 0.04 - 0.54 K/L [facility] # Baso 0.07 0.01 - 0.08 K/L [facility] Immature 0 0 - 1 % [facility] Granulocytes-Relative [facility] Specimen Blood Performing Organization Address [facility] one Number [place] [phone] [place] [address] * Phosphorus (12/14/2018 4:58 AM CDT) Phosphorus 2.2 (L) 2.3 - 4.7 mg/dL [facility] Specimen Blood Performing Organization Address City/[facility] one Number [place] [phone] [place] [address] * Magnesium (12/14/2018 4:58 AM CDT) Magnesium 1.6 1.6 - 2.6 mg/dL [facility] Specimen Blood Performing Organization Address City/[facility] one Number [address] [facility] * Basic metabolic panel (12/14/2018 4:58 AM CDT) Only the most recent of 2 results within the time period is included. Sodium 139 136 - 145 meq/L [facility] Potassium 3.2 (L) 3.5 - 5.1 meq/L [facility] Chloride 105 98 - 107 meq/L [facility] CO2 28 22 - 29 meq/L [facility] BUN 11 7 - 21 mg/dL [facility] Creatinine 1.12 0.57 - 1.25 mg/dL [facility] Glucose 112 (H) 70 - 105 mg/dL [facility] Calcium 8.7 8.4 - 10.2 mg/dL [facility] EGFR 87Comment: ESTIMATED GFR IS mL/min/1.73 sq m [facility] NOT ACCURATE CREATININE [facility] CLEARANCE IN PREDICTING GLOMERULAR FILTRATION RATE. ESTIMATED GFR IS NOT APPLICABLE FOR DIALYSIS PATIENTS. Specimen Blood Performing Organization Address [facility] one [place] [address] [facility] * Hemoglobin A1c (12/13/2018 3:38 PM CDT) Hemoglobin A1C 8.4 (H) 4.3 - 6.1 % [facility] Specimen Blood Performing Organization Address City/[facility] one Number [place] [address] [facility] * Hepatic function panel (12/13/2018 3:38 PM CDT) Protein, Total 6.9 6.0 - 8.3 gm/dL [facility] Albumin 3.9 3.5 - 5.0 g/dL [facility] Total Bilirubin 0.5 0.2 - 1.2 mg/dL [facility] Bilirubin, Direct 0.2 0.1 - 0.5 mg/dL [facility] Alkaline Phosphatase 80 40 - 150 U/L [facility] AST 18 5 - 34 U/L [facility] ALT 15 6 - 55 U/L [facility] Specimen Blood Performing Organization Address [facility] Ph one Number [address] [facility] * Lipid panel (12/13/2018 3:38 PM CDT) Triglycerides 101 mg/dL [facility] Cholesterol 151 mg/dL [facility] HDL 38 mg/dL [facility] LDL Calculated 93 mg/dL [facility] Specimen Blood Narrative Performed At Triglyceride Reference Range: [facility] Low Risk <150 [facility] [id number] High Risk 200-499 Very High Risk>=500 Cholesterol Reference Range: Low Risk <200 [id number] High Risk>240 HDL Cholesterol Reference Range: Low Risk >=60 High Risk <40 LDL Cholesterol Reference Range: Optimal<100 Near [id number] Very High >=190 Performing Organization Address City/[facility] Ph one Number [address] [facility] after 12/10/2018 Insurance Payer Benefit Subscriber ID Type Phone Address Plan / Group MEDICARE MEDICARE A xxxxxxxxxxx Medicare B [id number] Advance Directives For more information, please contact: [address] [address] Date Inactivated Comments Code Status Date Activated 12/15/2018 12:01 AM Full Code 12/13/2018 10:07 AM This code status was determined by: Patient
--- OUTSIDE RECORDS SUMMARY | 2019-12-11 17:15 | XMS REPORT | Continuity of Care Document ---
Author Author [facility] t Organization [facility] Address [address] [place] [address] Phone Unavailable Care Team Providers Care Peeled Potato Inspector Name Role Phone Chao BECKMAN PCP Mary Ann LYNNE Attphys Unavailable ISACC JAVED Attphys Unavailable STACIE FALLON, JAENNIE Attphys Unavailable DAHU, S JIRIES Attphys Unavailable NEIL PEREZ Attphys Unavailable Dasia GIBSON, Zaina Attphys Jyoti Lee MD Sharon Attphys [phone] Tiera FALLON, Rigo Bran Attphys [phone] MALLY MURALINATH SHARON Attphys Unavailable TAVIA GARCIA Attphys Unavailable ISACC JAVED Admphys Unavailable DAHU, S JIRIES Admphys Unavailable MALLY MURALINATH SHARON Admphys Unavailable Payers Payer Name Policy Type Policy Number Effective Date Expiration Date S ource Medicare A & B [id number] 2016 00:00:00 [facility] Cdc Review Covid19 [id number] [facility] MEDICAREMEDICARE A BxxxxxxxxxxxMedicare xxxxxxxxxxx [facility] Problems Condition Name Condition Details Condition Category Status Onset Date Resolution Date Last Treatment Date Treating Clinician Comments Source Diabetic gastroparesis associated with type 2 diabetes mellitus Diabetic gastroparesis associated with type 2 diabetes mellitus Problem Active [facility] Upper gastrointestinal hemorrhage Upper GI bleed Problem Active [facility] Dehydration Dehydration Problem Active [facility] Nausea and vomiting Nausea & vomiting Problem Active [facility] Hematemesis Problem Active [facility] Acute epigastric pain Problem Active [facility] Abdominal pain Problem Active [facility] Vomiting Problem Active [facility] Tachycardia Problem Active [facility] Hyperglycemia Problem Active [facility] Colitis Problem Active [facility] Intractable vomiting with nausea Problem Active [facility] Abnormal kidney function Problem Active [facility] Gastroparesis Problem Active [facility] Hypertensive crisis Problem Active [facility] Cannabis dependence Problem Active [facility] Allergies, Adverse Reactions, Alerts Allergy Name Allergy Type Status Severity Reaction(s) Onset Date Inacti ve Date Treating Clinician Comments Source No Known Allergies DA Active U 2019-02-13 00:00:00 [facility] No Known Allergies DA Active U 2019-02-06 00:00:00 [facility] No Known Allergies DA Active U 2018-05-11 00:00:00 [facility] No Known Allergies DA Active U 2018-02-26 00:00:00 [facility] No Known Allergies DA Active U 2018-01-14 00:00:00 [facility] No Known Allergies DA Active U 2017-12-15 00:00:00 [facility] No Known Allergies DA Active U 2017-10-09 00:00:00 [facility] Family History Family Member Diagnosis Comments Start Date Stop Date Source Maternal uncle Diabetes [facility] Natural mother Diabetes [facility] Social History Social Habit Start Date Stop Date Quantity Comments Source History SDOH Alcohol Std Drinks [facility] History SDOH Alcohol Binge [facility] History SDOH Alcohol Frequency 2018-12-13 00:00:00 2018-12-13 00:00:0 0 1 [facility] Sex Ass[birth year] At 1975 00:00:00 1975 00[birth year]:00 Male [facility] Smoking Status Start Date Stop Date Source Never smoker [facility] Medications Ordered Medication Name Filled Medication Name Start Date Stop Da te Current Medication? Ordering Clinician Indication Dosage Frequency Signature (SIG) Comments Components Source Promethazine Hcl Promethazine Hcl 2019-12-06 20:11:00 Yes 25 Every 6 Hours [facility] Promethazine Hcl Promethazine Hcl 2019-11-18 01:18:00 Yes 25 Every 6 Hours as needed for Nausea And Vomiting [facility] Promethazine Hcl Promethazine Hcl 2019-11-12 00:25:00 Yes 25 Every 6 Hours as needed for Nausea And Vomiting [facility] Acetaminophen With Codeine (Tylenol With Codeine #3 Ta blet) 1 Each TABLET Acetaminophen With Codeine (Tylenol With Codeine #3 Tablet) 1 Each TABLET 2019-10-28 10:59:00 Yes 300 Every 12 Jessenia rs as needed for Abdominal Pain [facility] Promethazine Hcl Promethazine Hcl 2019-09-21 09:25:00 Yes 25 Every 6 Hours for Vomiting [facility] Losartan Potassium Losartan Potassium 2019-08-25 13:46:00 2019-08-30 5 00:00:00 No 50 Daily [facility] Acetaminophen With Codeine (Tylenol With Codeine #3 Ta blet) 1 Each TABLET Acetaminophen With Codeine (Tylenol With Codeine #3 Tablet) 1 Each TABLET 2019-07-10 18:44:00 2019-09-22 00:00:00 No 300 Every 6 Hours as needed for Pain [facility] Promethazine Hcl Promethazine Hcl 2019-07-06 13:42:00 2019-07-10 00:00 :00 No 25 Three Times A Day [facility] promethazine (PHENERGAN) 12.5 MG tablet 00:00:00 2018-12-21 23:59:00 No 12.5mg Take 1 tablet (12.5 mg total) by mouth every 6 (six) hours as needed for Nausea for up to 7 days. [facility] insulin glargine (LANTUS) 100 unit/mL injection 2018-12-13 1 7:58:14 Yes type 2 diabetes mellitus 25U QD Inject 25 Units subcutaneously nightly Use as directed . [facility] dicyclomine (BENTYL) 10 MG capsule 2018-12-13 17:58:14 Y es 10mg Q.[id number] Take 10 mg by mouth 3 (three) times daily. [facility] metoclopramide HCl (REGLAN) 10 MG tablet 2018-12-13 17:58:14 Yes stomach muscle paralysis and decreased function from diabetes 10mg Take 10 mg by mouth 4 (four) times daily as needed for Nausea. [facility] pantoprazole (PROTONIX) 20 MG tablet 2018-12-13 17:58:14 Ye s 20mg Take 20 mg by mouth 2 (two) times daily before meals. [facility] traMADol (ULTRAM) 50 mg tablet 2018-12-13 17:58:14 Yes 50mg Q.[id number] Take 50 mg by mouth 3 (three) times daily. [facility] insulin aspart U-100 (NOVOLOG) 100 unit/mL injection 2 17:58:13 Yes type 2 diabetes mellitus 5U Inj ect 5 Units subcutaneously 3 (three) times daily before meals. [facility] Ondansetron (Ondansetron Odt) 8 Mg TAB.RAPDIS Ondanset calli (Ondansetron Odt) 8 Mg TAB.RAPDIS 2018-12-12 19:01:00 2019-07-10 00:00:00 No 4 Three Times A Day as needed for Nausea, Vomiting [facility] Promethazine Hcl (Phenergan Supp*) 25 Mg SUPP Prometha zine Hcl (Phenergan Supp*) 25 Mg SUPP 2018-12-12 19:01:00 2019-07-10 00:00:00 No 25 Three Times A Day as needed for Nausea, Vomiting [facility] Metoclopramide Hcl (Reglan) 10 Mg TABLET Metoclopramid e Hcl (Reglan) 10 Mg TABLET 2018-11-25 06:19:00 Yes 1 Before Meals And At Bedtime [facility] Pantoprazole Sodium (Protonix) 40 Mg TABLET. Pantopr azole Sodium (Protonix) 40 Mg TABLET. 2018-11-25 06:19:00 Yes 40 Daily [facility] Amlodipine Besylate (Norvasc) 10 Mg TAB Amlodipine Besylate (Norvasc) 10 Mg TAB 2018-11-25 06:19:00 2019-07-09 00:00:00 No 10 Daily [facility] Insulin Aspart (Novolog) 100 Units/1 Ml INJ Insulin As part (Novolog) 100 Units/1 Ml INJ Yes 8 Three Times Daily With Meals [facility] Insulin Glargine (Lantus 3ML Pen) 100 Units/1 Ml INJ I nsulin Glargine (Lantus 3ML Pen) 100 Units/1 Ml INJ Yes 15 Bedtime [facility] Lisinopril Lisinopril Yes 5 Daily [facility] Ondansetron Hcl Ondansetron Hcl Yes 4 Every 6 Hours as needed for Nausea [facility] Dicyclomine Hcl Dicyclomine Hcl 2019-07-10 00:00:00 No 10 Three Times A Day [facility] Promethazine Hcl Promethazine Hcl 2019-07-10 00:00:00 No 25 Three Times A Day as needed for Nausea [facility] Tramadol Hcl (Ultram 50MG*) 50 Mg TAB Tramadol Hcl (Ultram 50MG* ) 50 Mg TAB 2019-07-10 00:00:00 No 1 Three Times A Day as needed for Mild Pain (1-3) Or Fever>100.8 [facility] Glimepiride Glimepiride 2019-07-09 00:00:00 No 2 D aily [facility] Metoclopramide Hcl (Reglan) 10 Mg TABLET Metoclopramid e Hcl (Reglan) 10 Mg TABLET 2018-11-25 00:00:00 No 1 Bedtime [facility] Metoclopramide Hcl Metoclopramide Hcl 2018-11-25 00:00:00 No 10 Three Times A Day [facility] Metoclopramide Hcl (Reglan) 10 Mg TABLET Metoclopramid e Hcl (Reglan) 10 Mg TABLET 2018-11-25 00:00:00 No 1 Three Times A Day [facility] Pantoprazole Sodium (Protonix) 40 Mg TABLET. Pantopr azole Sodium (Protonix) 40 Mg TABLET. 2018-11-25 00:00:00 No 40 Daily [facility] Pantoprazole Sodium (Protonix) 40 Mg TABLET. Pantopr azole Sodium (Protonix) 40 Mg TABLET. 2018-11-25 00:00:00 No 40 Twice A Day [facility] Vital Signs Vital Name Observation Time Observation Value Comments Source Weight 2019-12-06 19:15:00 183 [lb_av] [facility] BMI (Body Mass Index) 2019-12-06 19:15:00 24.1 kg/m2 [facility] Weight 2019-11-17 21:10:00 183 [lb_av] [facility] BMI (Body Mass Index) 2019-11-17 21:10:00 24.1 kg/m2 [facility] Body Temperature 2019-11-12 00:41:00 97.5 [degF] [facility] Weight 2019-11-11 22:05:00 183 [lb_av] [facility] BMI (Body Mass Index) 2019-11-11 22:05:00 24.1 kg/m2 [facility] Weight 2019-11-07 16:35:00 183 [lb_av] [facility] BMI (Body Mass Index) 2019-11-07 16:35:00 24.1 kg/m2 [facility] Body Temperature 2019-10-28 16:21:00 98.1 [degF] [facility] Weight 2019-10-27 17:29:00 184 [lb_av] [facility] BMI (Body Mass Index) 2019-10-27 17:29:00 24.3 kg/m2 [facility] Body Temperature 2019-10-06 11:55:00 98.0 [degF] [facility] BMI (Body Mass Index) 2019-10-06 00:13:00 25.7 kg/m2 [facility] Weight 2019-10-03 16:16:00 195 [lb_av] [facility] Weight 2019-09-30 07:59:00 195 [lb_av] [facility] BMI (Body Mass Index) 2019-09-30 07:59:00 25.7 kg/m2 [facility] Body Temperature 2019-09-29 23:05:00 99.3 [degF] [facility] Weight 2019-09-29 20:31:00 195 [lb_av] [facility] BMI (Body Mass Index) 2019-09-29 20:31:00 25.7 kg/m2 [facility] Body Temperature 2019-09-24 07:56:00 97.9 [degF] [facility] BMI (Body Mass Index) 2019-09-24 00:04:00 25.7 kg/m2 [facility] Weight 2019-09-22 07:12:00 195 [lb_av] [facility] Weight 2019-09-21 07:05:00 193 [lb_av] [facility] BMI (Body Mass Index) 2019-09-21 07:05:00 25.5 kg/m2 [facility] Body Temperature 2019-09-20 23:35:00 97.7 [degF] [facility] Weight 2019-09-20 21:36:00 193 [lb_av] [facility] BMI (Body Mass Index) 2019-09-20 21:36:00 25.5 kg/m2 [facility] Weight 2019-08-23 17:53:00 195 [lb_av] [facility] BMI (Body Mass Index) 2019-08-23 17:53:00 25.7 kg/m2 [facility] Body Temperature 2019-07-24 12:23:00 97.6 [degF] [facility] Systolic blood pressure 2018-12-14 15:44:00 160 mm[Hg] [facility] Diastolic blood pressure 2018-12-14 15:44:00 82 mm[Hg] [facility] Heart rate 2018-12-14 15:44:00 69 /min [facility] Body temperature 2018-12-14 15:44:00 37.44 Sarai [facility] Respiratory rate 2018-12-14 15:44:00 18 /min [facility] Oxygen saturation in Arterial blood by Pulse oximetry 12-14 15:44:00 97 /[facility] Measured 2018-12-13 10:20:00 86.274 kg [facility] Procedures Procedure Date / Time Performed Performing Clinician [facility] e EMERGENCY DEPT VISIT 2019-11-17 00:00:00 [facility] EXCISION OF DUODENUM, ENDO, DIAGN 2019-10-05 00:00:00 [facility] EXCISION OF STOMACH, PYLORUS, ENDO, DIAGN 2019-10-05 00:00:00 [facility] Computed tomography of abdomen and pelvis with contrast 00:00:00 [facility] Computed tomography of abdomen and pelvis with contrast 00:00:00 [facility] EMERGENCY DEPT VISIT 2019-09-21 00:00:00 [facility] EMERGENCY DEPT VISIT 2019-09-20 00:00:00 [facility] REPORT OF PROCEDURE - ENDOSCOPY SCAN 2018-12-16 09:02:06 Pro vider, Default Scanning [facility] POCT-GLUCOSE METER 2018-12-14 17:15:00 Shant Mott [facility] POCT-GLUCOSE METER 2018-12-14 12:04:00 Shant Mott [facility] ECG 12-LEAD 2018-12-14 10:08:16 Shant Mott [facility] POCT-GLUCOSE METER 2018-12-14 07:43:00 Shant Mott [facility] BASIC METABOLIC PANEL (7) 2018-12-14 04:58:00 Gadicherla, Sharon Muralinath [facility] PHOSPHORUS 2018-12-14 04:58:00 Gadicherla, Sharon Muralinath [facility] MAGNESIUM 2018-12-14 04:58:00 Gadicherla, Sharon Muralinath [facility] CBC W/PLT COUNT & AUTO DIFFERENTIAL 2018-12-14 04:58:00 Jared cristiana, Sharon Muralinath [facility] POCT-GLUCOSE METER 2018-12-13 21:09:00 Gadicherla, Sharon Muralin ath [facility] POCT-GLUCOSE METER 2018-12-13 15:54:00 Gadicherla, Sharon Muralin ath [facility] BASIC METABOLIC PANEL (7) 2018-12-13 15:38:00 Gadicherla, Sharon Muralinath [facility] HEPATIC FUNCTION PANEL 2018-12-13 15:38:00 Gadicherla, Sharon Mur alinath [facility] HEMOGLOBIN A1C 2018-12-13 15:38:00 Gadicherla, Sharon Muralinath [facility] LIPID PANEL 2018-12-13 15:38:00 Sharon Lee [facility] CBC W/PLT COUNT & AUTO DIFFERENTIAL 2018-12-13 15:38:00 Sharon Mason [facility] POCT-GLUCOSE METER 2018-12-13 12:25:00 Sharon Lee [facility] Plan of Care Planned Activity Planned Date Details Comments Source Instructions Nausea and Vomiting - Oncology [facility] Encounters Start Date/Time End Date/Time Encounter Type Admission Type Attendi [facility] Care Department Encounter ID Source 2019-12-06 19:20:00 2019-12-06 22:48:[address] [facility] [id number] [facility] 2019-11-17 21:49:00 2019-11-18 01:35:[address] [facility] [id number] [facility] 2019-11-11 22:15:00 2019-11-12 00:38:00 Departed Emergency Room [address] [facility] [id number] [facility] 2019-11-07 16:24:00 2019-11-07 19:30:[address] [facility] [id number] [facility] 2019-10-27 14:43:00 2019-10-28 17:55:[address] [facility] [id number] [facility] 2019-10-04 00:35:00 2019-10-06 12:14:00 Discharged Inpatient [address] [facility] [id number] [facility] 2019-09-30 08:15:00 2019-09-30 14:10:00 Departed Emergency Room [address] [facility] [id number] [facility] 2019-09-29 20:40:00 2019-09-29 23:05:[address] [facility] [id number] [facility] 2019-[facility]-22 09:41:00 2019-09-24 08:22:00 Discharged Inpatient [address] [facility] [id number] [facility] 2019-09-21 07:02:00 2019-09-21 11:05:[address] [facility] [id number] [facility] 2019-09-20 20:47:00 2019-09-20 23:35:[address] [facility] [id number] [facility] 2019-08-24 08:10:00 2019-08-25 14:00:00 Discharged Inpatient (obs) [facility] [id number] [facility] 2019-08-23 17:24:00 2019-08-23 19:35:[address] [facility] [id number] [facility] 2019-07-23 06:38:00 2019-07-24 13:59:00 Discharged Inpatient [address] [facility] [id number] [facility] 2019-07-09 15:58:00 2019-07-10 18:57:00 Discharged Inpatient (obs) [facility] [id number] [facility] 2019-07-06 11:09:00 2019-07-06 14:11:[address] [facility] [id number] [facility] 2019-05-31 00:00:00 2019-05-31 00:00:00 Transition of Care Zaina Forman [id number] 2018-12-13 06:33:00 2018-12-13 08:35:00 Departed Emergency Room [facility] [id number] [facility] 2018-12-12 17:07:00 2018-12-12 19:35:00 Departed Emergency Room [facility] [id number] [facility] 2018-11-22 18:24:00 2018-11-25 16:05:00 Discharged Inpatient 1 ISACC JAVED [facility] [id number] [facility] 2018-09-28 12:15:00 2018-09-28 16:32:00 Departed Emergency Room [facility] [id number] [facility] 2018-09-20 08:55:00 2018-09-20 08:55:00 Registered Clinic 3 TAVIA GARCIA [facility] [id number] [facility] 2018-08-10 13:35:00 2018-08-10 17:00:00 Departed Emergency Room [facility] [id number] [facility] 2018-07-05 11:53:00 2018-07-07 08:40:00 Discharged Inpatient [facility] [id number] [facility] 2018-06-23 07:38:00 2018-06-23 07:38:00 Registered Clinic 3 JOSE TAVIA [facility] [id number] [facility] Results Test Description Test Time Test Comments Results Result Comments Source [facility] 2019-11-12 00:00:00 [place] [address] Patient Name: BREE LINDSAY MR #: [id number] : 1975 Age/Sex: 43/M Req #: [id number] Adm Physician: Ordered by: ALEISHA LYNNE MD Report #: [id number] Location: [facility] Room/Bed: Procedure: [id number] HOPD/ABDOMEN COMPLETE - HOPD Exam Date: 11/11/19 [...] Test Item Bedside Glucose (test code = 63539-6) 62 70-120 Meter ID: [id number] [facility] & [facility]udaCapillary blood glucose measurement by glucometer (mass/volume)2019-10-28 15:46:00* Test Item Value Reference Range Interpretation Comments Bedside Glucose (test code = 56605-0) 62 70-120 Meter ID: [id number] Scott & White [facility] Center – BudaCapillary blood glucose measurement by glucometer (mass/volume)2019-10-28 15:46:00* Test Item Value Reference Range Interpretation Comments Bedside Glucose (test code = 67647-4) 62 70-120 Meter ID: [id number] Scott & White [facility] Center [facility] BudaCapillary blood glucose measurement by glucometer (mass/volume)2019-10-28 15:46:00* Test Item Value Reference Range Interpretation Comments Bedside Glucose (test code = 92378-1) 62 70-120 Meter ID: [id number] Scott & [facility] BudaCapillary blood glucose measurement by glucometer (mass/volume)2019-10-28 15:46:00* Test Item Value Reference Range Interpretation Comments Bedside Glucose (test code = 35958-6) 62 70-120 Meter ID: [id number] [facility]viewerum or plasma sodium measurement (moles/volume)2019-10-28 04:50:00* Test Item Value Reference Range Interpretation Comments Sodium Level (test code = 2951-2) 141 136-145 [facility] plasma potassium measurement (moles/volume)2019-10-28 04:50:00* Test Item Value Reference Range Interpretation Comments Potassium Level (test code = 2823-3) 3.7 3.5-5.1 [facility] or plasma chloride measurement (moles/volume)2019-10-28 04:50:00* Test Item Value Reference Range Interpretation Comments Chloride Level (test code = 2075-0) 106 98-107 [facility] or plasma carbon dioxide, total measurement (moles/volume)2019-10-28 04:50:00* Test Item Value Reference Range Interpretation Comments Carbon Dioxide Level (test code = 2028-9) 24 22-29 [facility] or plasma anion [id number] 04:50:00* Test Item Value Reference Range Interpretation Comments Anion Gap (test code = 69451-1) 14.7 8-16 [facility] or plasma urea nitrogen measurement (mass/volume)2019-10-28 04:50:00* Test Item Value Reference Range Interpretation Comments Blood Urea Nitrogen (test code = 3094-0) 17 7-26 [facility] or plasma creatinine measurement (mass/volume)2019-10-28 04:50:00* Test Item Value Reference Range Interpretation Comments Creatinine (test code = 2160-0) 1.15 0.72-1.25 [facility] or plasma urea nitrogen/creatinine mass [id number] 04:50:00* Test Item Value Reference Range Interpretation Comments BUN/Creatinine Ratio (test code = 3097-3) 15 6-25 [facility]udaEstimated glomerular filtration rate (GFR) [id number] 04:50:00* Test Item Value Reference Range Interpretation Comments Estimat Glomerular Filtration Rate (test code = 474114865) > 60 >60 Ranges were taken from the National Kidney Disease Education Program and the [facility] literature.Reference ranges:60 or greater: Vdjlic59-29 ( for 3 consecutive months): Chronic kidney disease 15 or less: Kid[facility] failureBaylor [facility] BudaGlucose zzmappycvdq1707-91-34 04:50:00* Test Item Value Reference Range Interpretation Comments Glucose Level (test code = MEF7565) 246 74-118 [facility]viewerum or plasma calcium measurement (mass/volume)2019-10-28 04:50:00* Test Item Value Reference Range Interpretation Comments Calcium Level (test code = 54435-7) 8.4 8.4-10.2 [facility] BudaFluoroscopic procedure less than one hour cdydzdwf7622-11-09 04:50:00* Test Item Value Reference Range Interpretation Comments Hemoglobin A1c Percent (test code = Hemoglobin A1c Percent) 9.9 4.0-7.0 [facility] Longviewerum or plasma lipase measurement (enzymatic activity/volume)2019-10-28 04:50:00* Test Item Value Reference Range Interpretation Comments Lipase (test code = 3040-3) < 4 8-78 [facility]viewerum or plasma sodium measurement (moles/volume)2019-10-28 04:50:00* Test Item Value Reference Range Interpretation Comments Sodium Level (test code = 2951-2) 141 136-145 [facility]viewerum or plasma potassium measurement (moles/volume)2019-10-28 04:50:00* Test Item Value Reference Range Interpretation Comments Potassium Level (test code = 2823-3) 3.7 3.5-5.1 [facility]viewerum or plasma chloride measurement (moles/volume)2019-10-28 04:50:00* Test Item Value Reference Range Interpretation Comments Chloride Level (test code = 2075-0) 106 98-107 [facility]viewerum or plasma carbon dioxide, total measurement (moles/volume)2019-10-28 04:50:00* Test Item Value Reference Range Interpretation Comments Carbon Dioxide Level (test code = 2028-9) 24 22-29 [facility]viewerum or plasma anion [id number] 04:50:00* Test Item Value Reference Range Interpretation Comments Anion Gap (test code = 11917-8) 14.7 8-16 [facility]viewerum or plasma urea nitrogen measurement (mass/volume)2019-10-28 04:50:00* Test Item Value Reference Range Interpretation Comments Blood Urea Nitrogen (test code = 3094-0) 17 7-26 [facility]viewerum or plasma creatinine measurement (mass/volume)2019-10-28 04:50:00* Test Item Value Reference Range Interpretation Comments Creatinine (test code = 2160-0) 1.15 0.72-1.25 [facility]viewerum or plasma urea nitrogen/creatinine mass qulso9698-56-95 04:50:00* Test Item Value Reference Range Interpretation Comments BUN/Creatinine Ratio (test code = 3097-3) 15 6-25 [facility] BudaEstimated glomerular filtration rate (GFR) dujdnevbncyxt4940-44-72 04:50:00* Test Item Value Reference Range Interpretation Comments Estimat Glomerular Filtration Rate (test code = 641096318) > 60 >60 Ranges were taken from the National Kidney Disease Education Program and the [facility] Foundation literature.Reference ranges:60 or greater: Tkhgdn94-29 ( for 3 consecutive months): Chronic kidney disease 15 or less: Kidney failureBaylor Scott & [facility] – BudaGlucose mwwvcsbqmyq3123-94-19 04:50:00* Test Item Value Reference Range Interpretation Comments Glucose Level (test code = WRW7618) 246 74-118 [facility]viewerum or plasma calcium measurement (mass/volume)2019-10-28 04:50:00* Test Item Value Reference Range Interpretation Comments Calcium Level (test code = 85612-7) 8.4 8.4-10.2 [facility] BudaFluoroscopic procedure less than one hour dicajtft0646-98-95 04:50:00* Test Item Value Reference Range Interpretation Comments Hemoglobin A1c Percent (test code = Hemoglobin A1c Percent) 9.9 4.0-7.0 [facility]viewerum or plasma lipase measurement (enzymatic activity/volume)2019-10-28 04:50:00* Test Item Value Reference Range Interpretation Comments Lipase (test code = 3040-3) < 4 8-78 [facility]viewerum or plasma sodium measurement (moles/volume)2019-10-28 04:50:00* Test Item Value Reference Range Interpretation Comments Sodium Level (test code = 2951-2) 141 136-145 [facility]viewerum or plasma potassium measurement (moles/volume)2019-10-28 04:50:00* Test Item Value Reference Range Interpretation Comments Potassium Level (test code = 2823-3) 3.7 3.5-5.1 [facility]viewerum or plasma chloride measurement (moles/volume)2019-10-28 04:50:00* Test Item Value Reference Range Interpretation Comments Chloride Level (test code = 2075-0) 106 98-107 [facility]viewerum or plasma carbon dioxide, total measurement (moles/volume)2019-10-28 04:50:00* Test Item Value Reference Range Interpretation Comments Carbon Dioxide Level (test code = 2028-9) 24 22-29 [facility]viewerum or plasma anion [id number] 04:50:00* Test Item Value Reference Range Interpretation Comments Anion Gap (test code = 66165-7) 14.7 8-16 [facility]viewerum or plasma urea nitrogen measurement (mass/volume)2019-10-28 04:50:00* Test Item Value Reference Range Interpretation Comments Blood Urea Nitrogen (test code = 3094-0) 17 7-26 [facility]viewerum or plasma creatinine measurement (mass/volume)2019-10-28 04:50:00* Test Item Value Reference Range Interpretation Comments Creatinine (test code = 2160-0) 1.15 0.72-1.25 [facility]viewerum or plasma urea nitrogen/creatinine mass fyblc0147-94-57 04:50:00* Test Item Value Reference Range Interpretation Comments BUN/Creatinine Ratio (test code = 3097-3) 15 6-25 [facility] BudaEstimated glomerular filtration rate (GFR) ivulguctrcnfc2314-57-92 04:50:00* Test Item Value Reference Range Interpretation Comments Estimat Glomerular Filtration Rate (test code = 237366172) > 60 >60 Ranges were taken from the National Kidney Disease Education Program and the [facility] Kidney Foundation literature.Reference ranges:60 or greater: Onxjui69-80 ( for 3 consecutive months): Chronic kidney disease 15 or less: Kidney failureBaylor [facility] BudaGlucose bwwaauylwnj2780-18-41 04:50:00* Test Item Value Reference Range Interpretation Comments Glucose Level (test code = EJC7116) 246 74-118 [facility]erum or plasma calcium measurement (mass/volume)2019-10-28 04:50:00* Test Item Value Reference Range Interpretation Comments Calcium Level (test code = 48197-9) 8.4 8.4-10.2 [facility] BudaFluoroscopic procedure less than one hour ydanehrt1892-24-82 04:50:00* Test Item Value Reference Range Interpretation Comments Hemoglobin A1c Percent (test code = Hemoglobin A1c Percent) 9.9 4.0-7.0 [facility]viewerum or plasma lipase measurement (enzymatic activity/volume)2019-10-28 04:50:00* Test Item Value Reference Range Interpretation Comments Lipase (test code = 3040-3) < 4 8-78 [facility]viewerum or plasma sodium measurement (moles/volume)2019-10-28 04:50:00* Test Item Value Reference Range Interpretation Comments Sodium Level (test code = 2951-2) 141 136-145 [facility]viewerum or plasma potassium measurement (moles/volume)2019-10-28 04:50:00* Test Item Value Reference Range Interpretation Comments Potassium Level (test code = 2823-3) 3.7 3.5-5.1 [facility]viewerum or plasma chloride measurement (moles/volume)2019-10-28 04:50:00* Test Item Value Reference Range Interpretation Comments Chloride Level (test code = 2075-0) 106 98-107 [facility]viewerum or plasma carbon dioxide, total measurement (moles/volume)2019-10-28 04:50:00* Test Item Value Reference Range Interpretation Comments Carbon Dioxide Level (test code = 2028-9) 24 22-29 [facility]viewerum or plasma anion [id number] 04:50:00* Test Item Value Reference Range Interpretation Comments Anion Gap (test code = 74768-4) 14.7 8-16 [facility]viewerum or plasma urea nitrogen measurement (mass/volume)2019-10-28 04:50:00* Test Item Value Reference Range Interpretation Comments Blood Urea Nitrogen (test code = 3094-0) 17 7-26 [facility]viewerum or plasma creatinine measurement (mass/volume)2019-10-28 04:50:00* Test Item Value Reference Range Interpretation Comments Creatinine (test code = 2160-0) 1.15 0.72-1.25 [facility]viewerum or plasma urea nitrogen/creatinine mass zvyfq1064-08-24 04:50:00* Test Item Value Reference Range Interpretation Comments BUN/Creatinine Ratio (test code = 3097-3) 15 6-25 [facility] BudaEstimated glomerular filtration rate (GFR) zxjlzewbuntfx2132-11-45 04:50:00* Test Item Value Reference Range Interpretation Comments Estimat Glomerular Filtration Rate (test code = 002689901) > 60 >60 Ranges were taken from the National Kidney Disease Education Program and the [facility] Kid[facility] Foundation literature.Reference ranges:60 or greater: Qveqez00-15 ( for 3 consecutive months): Chronic kidney disease 15 or less: Kidney failureBaylor [facility] & [facility] BudaGlucose iyzdzpefrhn6892-84-62 04:50:00* Test Item Value Reference Range Interpretation Comments Glucose Level (test code = ZJD9703) 246 74-118 [facility]viewerum or plasma calcium measurement (mass/volume)2019-10-28 04:50:00* Test Item Value Reference Range Interpretation Comments Calcium Level (test code = 76113-6) 8.4 8.4-10.2 [facility] BudaFluoroscopic procedure less than one hour mesiilzt2850-84-77 04:50:00* Test Item Value Reference Range Interpretation Comments Hemoglobin A1c Percent (test code = Hemoglobin A1c Percent) 9.9 4.0-7.0 [facility]viewerum or plasma lipase measurement (enzymatic activity/volume)2019-10-28 04:50:00* Test Item Value Reference Range Interpretation Comments Lipase (test code = 3040-3) < 4 8-78 [facility]viewerum or plasma sodium measurement (moles/volume)2019-10-28 04:50:00* Test Item Value Reference Range Interpretation Comments Sodium Level (test code = 2951-2) 141 136-145 [facility]viewerum or plasma potassium measurement (moles/volume)2019-10-28 04:50:00* Test Item Value Reference Range Interpretation Comments Potassium Level (test code = 2823-3) 3.7 3.5-5.1 [facility]viewerum or plasma chloride measurement (moles/volume)2019-10-28 04:50:00* Test Item Value Reference Range Interpretation Comments Chloride Level (test code = 2075-0) 106 98-107 [facility]viewerum or plasma carbon dioxide, total measurement (moles/volume)2019-10-28 04:50:00* Test Item Value Reference Range Interpretation Comments Carbon Dioxide Level (test code = 2028-9) 24 22-29 [facility]viewerum or plasma anion [id number] 04:50:00* Test Item Value Reference Range Interpretation Comments Anion Gap (test code = 54435-7) 14.7 8-16 [facility]viewerum or plasma urea nitrogen measurement (mass/volume)2019-10-28 04:50:00* Test Item Value Reference Range Interpretation Comments Blood Urea Nitrogen (test code = 3094-0) 17 7-26 [facility]viewerum or plasma creatinine measurement (mass/volume)2019-10-28 04:50:00* Test Item Value Reference Range Interpretation Comments Creatinine (test code = 2160-0) 1.15 0.72-1.25 [facility]viewerum or plasma urea nitrogen/creatinine mass sfgdm3703-36-33 04:50:00* Test Item Value Reference Range Interpretation Comments BUN/Creatinine Ratio (test code = 3097-3) 15 6-25 [facility] BudaEstimated glomerular filtration rate (GFR) ngyrjxbrtqdkv8848-22-54 04:50:00* Test Item Value Reference Range Interpretation Comments Estimat Glomerular Filtration Rate (test code = 296836467) > 60 >60 Ranges were taken from the National Kidney Disease Education Program and the [facility] Kid[facility] Foundation literature.Reference ranges:60 or greater: Zucvmp14-11 ( for 3 consecutive months): Chronic kidney disease 15 or less: Kidney failureBaylor [facility] BudaGlucose iwmmhmyjmhd6960-65-61 04:50:00* Test Item Value Reference Range Interpretation Comments Glucose Level (test code = FEW8480) 246 74-118 [facility]viewerum or plasma calcium measurement (mass/volume)2019-10-28 04:50:00* Test Item Value Reference Range Interpretation Comments Calcium Level (test code = 81010-5) 8.4 8.4-10.2 [facility] BudaFluoroscopic procedure less than one hour konkudhb7754-27-98 04:50:00* Test Item Value Reference Range Interpretation Comments Hemoglobin A1c Percent (test code = Hemoglobin A1c Percent) 9.9 4.0-7.0 [facility]viewerum or plasma lipase measurement (enzymatic activity/volume)2019-10-28 04:50:00* Test Item Value Reference Range Interpretation Comments Lipase (test code = 3040-3) < 4 8-78 [facility] BudaFluoroscopic procedure less than one hour gbtrdauq6518-36-23 15:40:00* Test Item Value Reference Range Interpretation Comments Coronavirus (PCR) (test code = Coronavirus (PCR)) NOT DETECTED NOTD ETECTED Hologic Aptima SARS-CoV-2 assay is a nucleic amplification test intended for the qualitative detection of RNA from SARS-CoV-2 from nasopharyngeal (NARROW FABRIC LOOM FIXER) specimens . It is used under Emergency [...] for reprat testing oc clinically indicated.Tesing performed by:[facility] [address] [place] [address] [id number] hart MD, PhD [facility] BudaFluoroscopic procedure less than one hour gofsdqci2957-58-52 15:40:00* Test Item Value Reference Range Interpretation Comments Coronavirus (PCR) (test code = Coronavirus (PCR)) NOT DETECTED NOT ETECTED Hologic Aptima SARS-CoV-2 assay is a nucleic amplification test intended for the qualitative detection of RNA from SARS-CoV-2 from nasopharyngeal (NARROW FABRIC LOOM FIXER) specimens . It is used under Emergency Use Authorization (EUA) by [facility].A positive result is indicative of the [...] for reprat testing oc clinically indicated.Tesing performed by:[facility] [address] [place] [address] [id number] hart MD, PhD [facility] BudaFluoroscopic procedure less than one hour zqjtgzkr3467-69-39 15:40:00* Test Item Value Reference Range Interpretation Comments Coronavirus (PCR) (test code = Coronavirus (PCR)) NOT DETECTED NOTD ETECTED LawBite[employer] Aptima SARS-CoV-2 assay is a nucleic amplification test intended for the qualitative detection of RNA from SARS-CoV-2 from nasopharyngeal (NARROW FABRIC LOOM FIXER) specimens . It is used under Emergency [...] for reprat testing oc clinically indicated.Tesing performed by:[facility] [address] [place] [address] [id number] hart MD, PhD [facility] BudaFluoroscopic procedure less than one hour flofeskw8353-88-06 15:40:00* Test Item Value Reference Range Interpretation Comments Coronavirus (PCR) (test code = Coronavirus (PCR)) NOT DETECTED NOTD ETECTED [employer] Aptima SARS-CoV-2 assay is a nucleic amplification test intended for the qualitative detection of RNA from SARS-CoV-2 from nasopharyngeal (NARROW FABRIC LOOM FIXER) specimens . It is used under Emergency [...] for reprat testing oc clinically indicated.Tesing performed by:[facility] [address] [place] [address] [id number] hart MD, PhD [facility] BudaBlood leukocytes automated count (number/volume)2019-10-27 13:50:00* Test Item Value Reference Range Interpretation Comments White Blood Count (test code = 6690-2) 7.16 4.8-10.8 [facility] BudaBlood erythrocytes automated count (number/volume)2019-10-27 13:50:00* Test Item Value Reference Range Interpretation Comments Red Blood Count (test code = 789-8) 3.97 4.3-5.7 [facility]udaBlkittson [facility] hemoglobin measurement (moles/volume)2019-10-27 13:50:00* Test Item Value Reference Range Interpretation Comments Hemoglobin (test code = 37301-5) 11.2 14.0-18.0 [facility] BudaAutomated blood hematocrit (volume fraction)2019-10-27 13:50:00* Test Item Value Reference Range Interpretation Comments Hematocrit (test code = 4544-3) 35.7 38.2-49.6 [facility] BudaAutomated erythrocyte mean corpuscular jbrbtq9982-57-12 13:50:00* Test Item Value Reference Range Interpretation Comments Mean Corpuscular Volume (test code = 787-2) 89.9 81-99 [facility] BudaAutomated erythrocyte mean corpuscular hemoglobin (mass per erythrocyte)2019-10-27 13:50:00* Test Item Value Reference Range Interpretation Comments Mean Corpuscular Hemoglobin (test code = 785-6) 28.2 28-32 [facility] BudaAutomated erythrocyte mean corpuscular hemoglobin concentration measurement (mass/volume)2019-10-27 13:50:00* Test Item Value Reference Range Interpretation Comments Mean Corpuscular Hemoglobin Concent (test code = 786-4) 31.4 31-35 [facility] BudaRDW WmoAq-Bjr8978-90-30 13:50:00* Test Item Value Reference Range Interpretation Comments Red Cell Distribution Width (test code = 29237-9) 13.1 11.7 -14.4 [facility] BudaAutomated blood platelet count (count/volume)2019-10-27 13:50:00* Test Item Value Reference Range Interpretation Comments Platelet Count (test code = 777-3) 226 140-360 [facility] BudaAutquorum healthed blood segmented neutrophil count as percentage of total vzxzdntlyz1722-49-69 13:50:00* Test Item Value Reference Range Interpretation Comments Neutrophils (%) (Auto) (test code = 56650-9) 85.1 38.7-80.0 [facility] BudaAutomated blood lymphocyte count as percentage ot total abmtjznolp4370-05-00 13:50:00* Test Item Value Reference Range Interpretation Comments Lymphocytes (%) (Auto) (test code = 736-9) 10.3 18.0-39.1 [facility] BudaAutomated blood monocyte count as percentage of total jgekcmibvx1850-70-01 13:50:00* Test Item Value Reference Range Interpretation Comments Monocytes (%) (Auto) (test code = 5905-5) 3.5 4.4-11.3 [facility] BudaAutomated blood eosinophil count as percentage of total uascwfmtfs1294-55-40 13:50:00* Test Item Value Reference Range Interpretation Comments Eosinophils (%) (Auto) (test code = 713-8) 0.1 0.0-6.0 [facility] BudaAutomated blood basophil count as percentage of total lvzqegkgld2029-27-50 13:50:00* Test Item Value Reference Range Interpretation Comments Basophils (%) (Auto) (test code = 706-2) 0.7 0.0-1.0 [facility] BudaFluoroscopic procedure less than one hour rtrubpbx4510-03-37 13:50:00* Test Item Value Reference Range Interpretation Comments IM GRANULOCYTES % (test code = IM GRANULOCYTES %) 0.3 0.0- 1.0 [facility] BudaAutomated blood neutrophil count 2019-10-27 13:50:00* Test Item Value Reference Range Interpretation Comments Neutrophils # (Auto) (test code = 751-8) 6.1 2.1-6.9 [facility] BudaBlood lymphocytes count (number/volume) 2019-10-27 13:50:00* Test Item Value Reference Range Interpretation Comments Lymphocytes # (Auto) (test code = 74591-4) 0.7 1.0-3.2 [facility] BudaBlkittson [facility] monocytes automated count (number/volume)2019-10-27 13:50:00* Test Item Value Reference Range Interpretation Comments Monocytes # (Auto) (test code = 742-7) 0.3 0.2-0.8 [facility] BudaAutomated blood eosinophil count 2019-10-27 13:50:00* Test Item Value Reference Range Interpretation Comments Eosinophils # (Auto) (test code = 711-2) 0.0 0.0-0.4 [facility] BudaAutomated blood basophil count (count/volume)2019-10-27 13:50:00* Test Item Value Reference Range Interpretation Comments Basophils # (Auto) (test code = 704-7) 0.1 0.0-0.1 [facility] BudaFluoroscopic procedure less than one hour aglquldp1892-41-14 13:50:00* Test Item Value Reference Range Interpretation Comments Absolute Immature Granulocyte (auto (zeenat t code = Absolute Immature Granulocyte (auto) 0.02 0-0.1 [facility] leukocytes automated count (number/volume)2019-10-27 13:50:00* Test Item Value Reference Range Interpretation Comments White Blood Count (test code = 6690-2) 7.16 4.8-10.8 [facility] erythrocytes automated count (number/volume)2019-10-27 13:50:00* Test Item Value Reference Range Interpretation Comments Red Blood Count (test code = 789-8) 3.97 4.3-5.7 [facility] (moles/volume)2019-10-27 13:50:00* Test Item Value Reference Range Interpretation Comments Hemoglobin (test code = 12214-9) 11.2 14.0-18.0 [facility] BudaAutomated blood hematocrit (volume fraction)2019-10-27 13:50:00* Test Item Value Reference Range Interpretation Comments Hematocrit (test code = 4544-3) 35.7 38.2-49.6 [facility] BudaAutomated erythrocyte mean corpuscular zfbggk4439-81-46 13:50:00* Test Item Value Reference Range Interpretation Comments Mean Corpuscular Volume (test code = 787-2) 89.9 81-99 [facility] BudaAutomated erythrocyte mean corpuscular hemoglobin (mass per erythrocyte)2019-10-27 13:50:00* Test Item Value Reference Range Interpretation Comments Mean Corpuscular Hemoglobin (test code = 785-6) 28.2 28-32 [facility] BudaAutomated erythrocyte mean corpuscular hemoglobin concentration measurement (mass/volume)2019-10-27 13:50:00* Test Item Value Reference Range Interpretation Comments Mean Corpuscular Hemoglobin Concent (test code = 786-4) 31.4 31-35 [facility] BudaRDW KodHy-Tgc2809-17-30 13:50:00* Test Item Value Reference Range Interpretation Comments Red Cell Distribution Width (test code = 13914-7) 13.1 11.7 -14.4 [facility] BudaAutomated blood platelet count (count/volume)2019-10-27 13:50:00* Test Item Value Reference Range Interpretation Comments Platelet Count (test code = 777-3) 226 140-360 [facility] BudaAutomated blood segmented neutrophil count as percentage of total xszxoxgjzg8119-30-57 13:50:00* Test Item Value Reference Range Interpretation Comments Neutrophils (%) (Auto) (test code = 43839-2) 85.1 38.7-80.0 [facility] BudaAutomated blood lymphocyte count as percentage ot total nuohktwezd4953-97-78 13:50:00* Test Item Value Reference Range Interpretation Comments Lymphocytes (%) (Auto) (test code = 736-9) 10.3 18.0-39.1 [facility] BudaAutomated blood monocyte count as percentage of total jfnrmxuyzs0910-07-60 13:50:00* Test Item Value Reference Range Interpretation Comments Monocytes (%) (Auto) (test code = 5905-5) 3.5 4.4-11.3 [facility] BudaAutomated blood eosinophil count as percentage of total orknahkoql0649-17-74 13:50:00* Test Item Value Reference Range Interpretation Comments Eosinophils (%) (Auto) (test code = 713-8) 0.1 0.0-6.0 [facility] BudaAutomated blood basophil count as percentage of total cnbdzmothu6727-84-32 13:50:00* Test Item Value Reference Range Interpretation Comments Basophils (%) (Auto) (test code = 706-2) 0.7 0.0-1.0 [facility] BudaFluoroscopic procedure less than one hour fgqnyffq9040-45-31 13:50:00* Test Item Value Reference Range Interpretation Comments IM GRANULOCYTES % (test code = IM GRANULOCYTES %) 0.3 0.0- 1.0 [facility] BudaAutomated blood neutrophil count 2019-10-27 13:50:00* Test Item Value Reference Range Interpretation Comments Neutrophils # (Auto) (test code = 751-8) 6.1 2.1-6.9 [facility] lymphocytes count (number/volume) 2019-10-27 13:50:00* Test Item Value Reference Range Interpretation Comments Lymphocytes # (Auto) (test code = 95973-9) 0.7 1.0-3.2 [facility] monocytes automated count (number/volume)2019-10-27 13:50:00* Test Item Value Reference Range Interpretation Comments Monocytes # (Auto) (test code = 742-7) 0.3 0.2-0.8 [facility] BudaAutomated blood eosinophil count 2019-10-27 13:50:00* Test Item Value Reference Range Interpretation Comments Eosinophils # (Auto) (test code = 711-2) 0.0 0.0-0.4 [facility] BudaAutomated blood basophil count (count/volume)2019-10-27 13:50:00* Test Item Value Reference Range Interpretation Comments Basophils # (Auto) (test code = 704-7) 0.1 0.0-0.1 [facility] BudaFluoroscopic procedure less than one hour nkfhsgwv4155-87-75 13:50:00* Test Item Value Reference Range Interpretation Comments Absolute Immature Granulocyte (auto (zeenat t code = Absolute Immature Granulocyte (auto) 0.02 0-0.1 [facility] leukocytes automated count (number/volume)2019-10-27 13:50:00* Test Item Value Reference Range Interpretation Comments White Blood Count (test code = 6690-2) 7.16 4.8-10.8 [facility] BudaBlood erythrocytes automated count (number/volume)2019-10-27 13:50:00* Test Item Value Reference Range Interpretation Comments Red Blood Count (test code = 789-8) 3.97 4.3-5.7 [facility] BudaBlood hemoglobin measurement (moles/volume)2019-10-27 13:50:00* Test Item Value Reference Range Interpretation Comments Hemoglobin (test code = 17799-5) 11.2 14.0-18.0 [facility] BudaAutomated blood hematocrit (volume fraction)2019-10-27 13:50:00* Test Item Value Reference Range Interpretation Comments Hematocrit (test code = 4544-3) 35.7 38.2-49.6 [facility] BudaAutomated erythrocyte mean corpuscular gxxfim3026-99-58 13:50:00* Test Item Value Reference Range Interpretation Comments Mean Corpuscular Volume (test code = 787-2) 89.9 81-99 [facility] BudaAutomated erythrocyte mean corpuscular hemoglobin (mass per erythrocyte)2019-10-27 13:50:00* Test Item Value Reference Range Interpretation Comments Mean Corpuscular Hemoglobin (test code = 785-6) 28.2 28-32 [facility] BudaAutomated erythrocyte mean corpuscular hemoglobin concentration measurement (mass/volume)2019-10-27 13:50:00* Test Item Value Reference Range Interpretation Comments Mean Corpuscular Hemoglobin Concent (test code = 786-4) 31.4 31-35 [facility] BudaRDW IyjOw-Xug7257-87-30 13:50:00* Test Item Value Reference Range Interpretation Comments Red Cell Distribution Width (test code = 90000-7) 13.1 11.7 -14.4 [facility] BudaAutomated blood platelet count (count/volume)2019-10-27 13:50:00* Test Item Value Reference Range Interpretation Comments Platelet Count (test code = 777-3) 226 140-360 [facility] BudaAutomated blood segmented neutrophil count as percentage of total bmnahhipcq3919-29-62 13:50:00* Test Item Value Reference Range Interpretation Comments Neutrophils (%) (Auto) (test code = 03348-4) 85.1 38.7-80.0 [facility] BudaAutomated blood lymphocyte count as percentage ot total ffmbwviyyf2184-77-52 13:50:00* Test Item Value Reference Range Interpretation Comments Lymphocytes (%) (Auto) (test code = 736-9) 10.3 18.0-39.1 [facility] BudaAutomated blood monocyte count as percentage of total elgkozomkm7875-61-30 13:50:00* Test Item Value Reference Range Interpretation Comments Monocytes (%) (Auto) (test code = 5905-5) 3.5 4.4-11.3 [facility] BudaAutomated blood eosinophil count as percentage of total jfzkobvmxq6285-58-72 13:50:00* Test Item Value Reference Range Interpretation Comments Eosinophils (%) (Auto) (test code = 713-8) 0.1 0.0-6.0 [facility]udaAutomated blood basophil count as percentage of total qywuekegeb3279-77-34 13:50:00* Test Item Value Reference Range Interpretation Comments Basophils (%) (Auto) (test code = 706-2) 0.7 0.0-1.0 [facility] BudaFluoroscopic procedure less than one hour ksmaqait3347-31-99 13:50:00* Test Item Value Reference Range Interpretation Comments IM GRANULOCYTES % (test code = IM GRANULOCYTES %) 0.3 0.0- 1.0 [facility]udaAutomated blood neutrophil count 2019-10-27 13:50:00* Test Item Value Reference Range Interpretation Comments Neutrophils # (Auto) (test code = 751-8) 6.1 2.1-6.9 [facility] BudaBlood lymphocytes count (number/volume) 2019-10-27 13:50:00* Test Item Value Reference Range Interpretation Comments Lymphocytes # (Auto) (test code = 32222-5) 0.7 1.0-3.2 [facility] BudaBlood monocytes automated count (number/volume)2019-10-27 13:50:00* Test Item Value Reference Range Interpretation Comments Monocytes # (Auto) (test code = 742-7) 0.3 0.2-0.8 [facility]udaAutomated blood eosinophil count 2019-10-27 13:50:00* Test Item Value Reference Range Interpretation Comments Eosinophils # (Auto) (test code = 711-2) 0.0 0.0-0.4 [facility]udaAutomated blood basophil count (count/volume)2019-10-27 13:50:00* Test Item Value Reference Range Interpretation Comments Basophils # (Auto) (test code = 704-7) 0.1 0.0-0.1 [facility] BudaFluoroscopic procedure less than one hour wfujbohw6378-09-22 13:50:00* Test Item Value Reference Range Interpretation Comments Absolute Immature Granulocyte (auto (zeenat t code = Absolute Immature Granulocyte (auto) 0.02 0-0.1 [facility] leukocytes automated count (number/volume)2019-10-27 13:50:00* Test Item Value Reference Range Interpretation Comments White Blood Count (test code = 6690-2) 7.16 4.8-10.8 [facility] erythrocytes automated count (number/volume)2019-10-27 13:50:00* Test Item Value Reference Range Interpretation Comments Red Blood Count (test code = 789-8) 3.97 4.3-5.7 [facility] (moles/volume)2019-10-27 13:50:00* Test Item Value Reference Range Interpretation Comments Hemoglobin (test code = 80406-8) 11.2 14.0-18.0 [facility]udaAutomated blood hematocrit (volume fraction)2019-10-27 13:50:00* Test Item Value Reference Range Interpretation Comments Hematocrit (test code = 4544-3) 35.7 38.2-49.6 [facility] [place]udaAutomated erythrocyte mean corpuscular taspvn0485-85-60 13:50:00* Test Item Value Reference Range Interpretation Comments Mean Corpuscular Volume (test code = 787-2) 89.9 81-99 [facility] BudaAutomated erythrocyte mean corpuscular hemoglobin (mass per erythrocyte)2019-10-27 13:50:00* Test Item Value Reference Range Interpretation Comments Mean Corpuscular Hemoglobin (test code = 785-6) 28.2 28-32 [facility]udaAutomated erythrocyte mean corpuscular hemoglobin concentration measurement (mass/volume)2019-10-27 13:50:00* Test Item Value Reference Range Interpretation Comments Mean Corpuscular Hemoglobin Concent (test code = 786-4) 31.4 31-35 [facility] BudaRDW SyaVr-Bsc9772-76-30 13:50:00* Test Item Value Reference Range Interpretation Comments Red Cell Distribution Width (test code = 66465-1) 13.1 11.7 -14.4 [facility]udaAutomated blood platelet count (count/volume)2019-10-27 13:50:00* Test Item Value Reference Range Interpretation Comments Platelet Count (test code = 777-3) 226 140-360 [facility] BudaAutquorum healthed blood segmented neutrophil count as percentage of total spksmgmksg3445-23-69 13:50:00* Test Item Value Reference Range Interpretation Comments Neutrophils (%) (Auto) (test code = 09085-2) 85.1 38.7-80.0 [facility]udaAutomated blood lymphocyte count as percentage ot total eedrvumtgs8272-37-27 13:50:00* Test Item Value Reference Range Interpretation Comments Lymphocytes (%) (Auto) (test code = 736-9) 10.3 18.0-39.1 [facility]udaAutomated blood monocyte count as percentage of total jcuezringz1629-99-68 13:50:00* Test Item Value Reference Range Interpretation Comments Monocytes (%) (Auto) (test code = 5905-5) 3.5 4.4-11.3 [facility]udaAutomated blood eosinophil count as percentage of total gqgkqgrmwg3827-21-97 13:50:00* Test Item Value Reference Range Interpretation Comments Eosinophils (%) (Auto) (test code = 713-8) 0.1 0.0-6.0 [facility]udaAutomated blood basophil count as percentage of total uhlkshjbmm5178-95-44 13:50:00* Test Item Value Reference Range Interpretation Comments Basophils (%) (Auto) (test code = 706-2) 0.7 0.0-1.0 [facility] BudaFluoroscopic procedure less than one hour nhwftmwr7781-69-63 13:50:00* Test Item Value Reference Range Interpretation Comments IM GRANULOCYTES % (test code = IM GRANULOCYTES %) 0.3 0.0- 1.0 [facility]udaAutomated blood neutrophil count 2019-10-27 13:50:00* Test Item Value Reference Range Interpretation Comments Neutrophils # (Auto) (test code = 751-8) 6.1 2.1-6.9 [facility] BudaBlood lymphocytes count (number/volume) 2019-10-27 13:50:00* Test Item Value Reference Range Interpretation Comments Lymphocytes # (Auto) (test code = 91974-4) 0.7 1.0-3.2 [facility] BudaBlood monocytes automated count (number/volume)2019-10-27 13:50:00* Test Item Value Reference Range Interpretation Comments Monocytes # (Auto) (test code = 742-7) 0.3 0.2-0.8 [facility]udaAutomated blood eosinophil count 2019-10-27 13:50:00* Test Item Value Reference Range Interpretation Comments Eosinophils # (Auto) (test code = 711-2) 0.0 0.0-0.4 [facility]udaAutomated blood basophil count (count/volume)2019-10-27 13:50:00* Test Item Value Reference Range Interpretation Comments Basophils # (Auto) (test code = 704-7) 0.1 0.0-0.1 [facility] BudaFluoroscopic procedure less than one hour rskyriad2692-33-11 13:50:00* Test Item Value Reference Range Interpretation Comments Absolute Immature Granulocyte (auto (zeenat t code = Absolute Immature Granulocyte (auto) 0.02 0-0.1 [facility]udaBlk[facility] leukocytes automated count (number/volume)2019-10-27 13:50:00* Test Item Value Reference Range Interpretation Comments White Blood Count (test code = 6690-2) 7.16 4.8-10.8 [facility]udaBlkittson [facility] erythrocytes automated count (number/volume)2019-10-27 13:50:00* Test Item Value Reference Range Interpretation Comments Red Blood Count (test code = 789-8) 3.97 4.3-5.7 [facility] BudaBlood hemoglobin measurement (moles/volume)2019-10-27 13:50:00* Test Item Value Reference Range Interpretation Comments Hemoglobin (test code = 11351-7) 11.2 14.0-18.0 [facility] BudaAutomated blood hematocrit (volume fraction)2019-10-27 13:50:00* Test Item Value Reference Range Interpretation Comments Hematocrit (test code = 4544-3) 35.7 38.2-49.6 [facility] BudaAutomated erythrocyte mean corpuscular qbskdt8804-48-74 13:50:00* Test Item Value Reference Range Interpretation Comments Mean Corpuscular Volume (test code = 787-2) 89.9 81-99 [facility] BudaAutomated erythrocyte mean corpuscular hemoglobin (mass per erythrocyte)2019-10-27 13:50:00* Test Item Value Reference Range Interpretation Comments Mean Corpuscular Hemoglobin (test code = 785-6) 28.2 28-32 [facility] BudaAutomated erythrocyte mean corpuscular hemoglobin concentration measurement (mass/volume)2019-10-27 13:50:00* Test Item Value Reference Range Interpretation Comments Mean Corpuscular Hemoglobin Concent (test code = 786-4) 31.4 31-35 [facility] BudaRDW CgiAm-Jku4140-41-30 13:50:00* Test Item Value Reference Range Interpretation Comments Red Cell Distribution Width (test code = 50209-9) 13.1 11.7 -14.4 [facility]udaAutomated blood platelet count (count/volume)2019-10-27 13:50:00* Test Item Value Reference Range Interpretation Comments Platelet Count (test code = 777-3) 226 140-360 [facility] BudaAutomated blood segmented neutrophil count as percentage of total wfefiloolf1706-20-63 13:50:00* Test Item Value Reference Range Interpretation Comments Neutrophils (%) (Auto) (test code = 90474-7) 85.1 38.7-80.0 [facility] BudaAutomated blood lymphocyte count as percentage ot total hzoxonnafe4881-16-08 13:50:00* Test Item Value Reference Range Interpretation Comments Lymphocytes (%) (Auto) (test code = 736-9) 10.3 18.0-39.1 [facility] BudaAutomated blood monocyte count as percentage of total ngkxhvpsja7320-05-77 13:50:00* Test Item Value Reference Range Interpretation Comments Monocytes (%) (Auto) (test code = 5905-5) 3.5 4.4-11.3 [facility] BudaAutomated blood eosinophil count as percentage of total iymqoenpva6518-06-15 13:50:00* Test Item Value Reference Range Interpretation Comments Eosinophils (%) (Auto) (test code = 713-8) 0.1 0.0-6.0 [facility] BudaAutomated blood basophil count as percentage of total vjbiwmsggs1662-61-49 13:50:00* Test Item Value Reference Range Interpretation Comments Basophils (%) (Auto) (test code = 706-2) 0.7 0.0-1.0 [facility] BudaFluoroscopic procedure less than one hour omhwnsqe2115-77-13 13:50:00* Test Item Value Reference Range Interpretation Comments IM GRANULOCYTES % (test code = IM GRANULOCYTES %) 0.3 0.0- 1.0 [facility] BudaAutomated blood neutrophil count 2019-10-27 13:50:00* Test Item Value Reference Range Interpretation Comments Neutrophils # (Auto) (test code = 751-8) 6.1 2.1-6.9 [facility] BudaBlood lymphocytes count (number/volume) 2019-10-27 13:50:00* Test Item Value Reference Range Interpretation Comments Lymphocytes # (Auto) (test code = 79669-9) 0.7 1.0-3.2 [facility] monocytes automated count (number/volume)2019-10-27 13:50:00* Test Item Value Reference Range Interpretation Comments Monocytes # (Auto) (test code = 742-7) 0.3 0.2-0.8 [facility] BudaAutomated blood eosinophil count 2019-10-27 13:50:00* Test Item Value Reference Range Interpretation Comments Eosinophils # (Auto) (test code = 711-2) 0.0 0.0-0.4 [facility] blood basophil count (count/volume)2019-10-27 13:50:00* Test Item Value Reference Range Interpretation Comments Basophils # (Auto) (test code = 704-7) 0.1 0.0-0.1 [facility] BudaFluoroscopic procedure less than one hour vjsasbze8141-86-15 13:50:00* Test Item Value Reference Range Interpretation Comments Absolute Immature Granulocyte (auto (zeenat t code = Absolute Immature Granulocyte (auto) 0.02 0-0.1 [facility] leukocytes automated count (number/volume)2019-10-06 05:15:00* Test Item Value Reference Range Interpretation Comments White Blood Count (test code = 6690-2) 7.83 4.8-10.8 [facility] erythrocytes automated count (number/volume)2019-10-06 05:15:00* Test Item Value Reference Range Interpretation Comments Red Blood Count (test code = 789-8) 3.95 4.3-5.7 [facility] hemoglobin measurement (moles/volume)2019-10-06 05:15:00* Test Item Value Reference Range Interpretation Comments Hemoglobin (test code = 92534-4) 11.2 14.0-18.0 [facility] BudaAutomated blood hematocrit (volume fraction)2019-10-06 05:15:00* Test Item Value Reference Range Interpretation Comments Hematocrit (test code = 4544-3) 35.5 38.2-49.6 [facility] BudaAutomated erythrocyte mean corpuscular dusbnw5681-86-54 05:15:00* Test Item Value Reference Range Interpretation Comments Mean Corpuscular Volume (test code = 787-2) 89.9 81-99 [facility] BudaAutomated erythrocyte mean corpuscular hemoglobin (mass per erythrocyte)2019-10-06 05:15:00* Test Item Value Reference Range Interpretation Comments Mean Corpuscular Hemoglobin (test code = 785-6) 28.4 28-32 [facility] BudaAutomated erythrocyte mean corpuscular hemoglobin concentration measurement (mass/volume)2019-10-06 05:15:00* Test Item Value Reference Range Interpretation Comments Mean Corpuscular Hemoglobin Concent (test code = 786-4) 31.5 31-35 [facility] BudaRDW NjtPl-Vwe3848-55-09 05:15:00* Test Item Value Reference Range Interpretation Comments Red Cell Distribution Width (test code = 36621-6) 13.4 11.7 -14.4 [facility] BudaAutomated blood platelet count (count/volume)2019-10-06 05:15:00* Test Item Value Reference Range Interpretation Comments Platelet Count (test code = 777-3) 243 140-360 [facility] BudaAutomated blood segmented neutrophil count as percentage of total wvfnvvkosd6041-47-39 05:15:00* Test Item Value Reference Range Interpretation Comments Neutrophils (%) (Auto) (test code = 05376-0) 57.1 38.7-80.0 [facility] BudaAutomated blood lymphocyte count as percentage ot total ddbxccevdg7692-35-48 05:15:00* Test Item Value Reference Range Interpretation Comments Lymphocytes (%) (Auto) (test code = 736-9) 31.9 18.0-39.1 [facility] BudaAutomated blood monocyte count as percentage of total brrauwvcyb3492-45-21 05:15:00* Test Item Value Reference Range Interpretation Comments Monocytes (%) (Auto) (test code = 5905-5) 7.8 4.4-11.3 [facility] BudaAutomated blood eosinophil count as percentage of total liefdqzvtm7448-29-33 05:15:00* Test Item Value Reference Range Interpretation Comments Eosinophils (%) (Auto) (test code = 713-8) 2.2 0.0-6.0 [facility] BudaAutomated blood basophil count as percentage of total stdzpexisn4250-61-04 05:15:00* Test Item Value Reference Range Interpretation Comments Basophils (%) (Auto) (test code = 706-2) 0.9 0.0-1.0 [facility] BudaFluoroscopic procedure less than one hour xxqzkgyd9233-94-14 05:15:00* Test Item Value Reference Range Interpretation Comments IM GRANULOCYTES % (test code = IM GRANULOCYTES %) 0.1 0.0- 1.0 [facility] BudaAutomated blood neutrophil count 2019-10-06 05:15:00* Test Item Value Reference Range Interpretation Comments Neutrophils # (Auto) (test code = 751-8) 4.5 2.1-6.9 [facility] BudaBlood lymphocytes count (number/volume) 2019-10-06 05:15:00* Test Item Value Reference Range Interpretation Comments Lymphocytes # (Auto) (test code = 45041-3) 2.5 1.0-3.2 [facility] BudaBlood monocytes automated count (number/volume)2019-10-06 05:15:00* Test Item Value Reference Range Interpretation Comments Monocytes # (Auto) (test code = 742-7) 0.6 0.2-0.8 [facility] BudaAutomated blood eosinophil count 2019-10-06 05:15:00* Test Item Value Reference Range Interpretation Comments Eosinophils # (Auto) (test code = 711-2) 0.2 0.0-0.4 [facility] BudaAutomated blood basophil count (count/volume)2019-10-06 05:15:00* Test Item Value Reference Range Interpretation Comments Basophils # (Auto) (test code = 704-7) 0.1 0.0-0.1 [facility] BudaFluoroscopic procedure less than one hour btgzsbmk5020-00-18 05:15:00* Test Item Value Reference Range Interpretation Comments Absolute Immature Granulocyte (auto (zeenat t code = Absolute Immature Granulocyte (auto) 0.01 0-0.1 [facility]view[facility]um or plasma sodium measurement (moles/volume)2019-10-06 05:15:00* Test Item Value Reference Range Interpretation Comments Sodium Level (test code = 2951-2) 135 136-145 [facility] Longviewerum or plasma potassium measurement (moles/volume)2019-10-06 05:15:00* Test Item Value Reference Range Interpretation Comments Potassium Level (test code = 2823-3) 3.4 3.5-5.1 [facility]viewerum or plasma chloride measurement (moles/volume)2019-10-06 05:15:00* Test Item Value Reference Range Interpretation Comments Chloride Level (test code = 2075-0) 99 98-107 [facility]viewerum or plasma carbon dioxide, total measurement (moles/volume)2019-10-06 05:15:00* Test Item Value Reference Range Interpretation Comments Carbon Dioxide Level (test code = 2028-9) 29 22-29 [facility]viewerum or plasma anion adl5803-54-02 05:15:00* Test Item Value Reference Range Interpretation Comments Anion Gap (test code = 75812-6) 10.4 8-16 [facility]viewerum or plasma urea nitrogen measurement (mass/volume)2019-10-06 05:15:00* Test Item Value Reference Range Interpretation Comments Blood Urea Nitrogen (test code = 3094-0) < 5 7-26 [facility]viewerum or plasma creatinine measurement (mass/volume)2019-10-06 05:15:00* Test Item Value Reference Range Interpretation Comments Creatinine (test code = 2160-0) 1.04 0.72-1.25 [facility]viewerum or plasma urea nitrogen/creatinine mass velfs7713-82-44 05:15:00* Test Item Value Reference Range Interpretation Comments BUN/Creatinine Ratio (test code = 3097-3) 5 6-25 [facility] BudaEstimated glomerular filtration rate (GFR) vhldnhwrmvefd4185-86-53 05:15:00* Test Item Value Reference Range Interpretation Comments Estimat Glomerular Filtration Rate (test code = 092725958) > 60 >60 Ranges were taken from the National Kidney Disease Education Program and the [facility] literature.Reference ranges:60 or greater: Mszejw74-82 ( for 3 consecutive months): Chronic kidney disease 15 or less: Kidney failureCHI Freestone Medical CenterGlucose sgsgzxruwgq4163-24-75 05:15:00* Test Item Value Reference Range Interpretation Comments Glucose Level (test code = XEE5929) 202 74-118 [facility]viewerum or plasma calcium measurement (mass/volume)2019-10-06 05:15:00* Test Item Value Reference Range Interpretation Comments Calcium Level (test code = 29206-1) 8.7 8.4-10.2 [facility] BudaCapillary blood glucose measurement by glucometer (mass/volume)2019-10-05 19:48:00* Test Item Value Reference Range Interpretation Comments Bedside Glucose (test code = 87805-7) 233 70-120 Meter ID: [id number] [facility] CenterUrine color agjhfiblchlup2056-07-36 06:00:00* Test Item Value Reference Range Interpretation Comments Urine Color (test code = 5778-6) YELLOW YELLOW [facility]udaU[facility] [id number] 06:00:00* Test Item Value Reference Range Interpretation Comments Urine Clarity (test code = 64618-3) [facility]AR [facility]AR [facility] Urine by Test strip 2019-10-05 06:00:00* Test Item Value Reference Range Interpretation Comments Urine Specific Hector (test code = 5811-5) 1.020 1.010-1.02 5 [facility]udaUrine pH measurement by automated test [id number] 06:00:00* Test Item Value Reference Range Interpretation Comments Urine pH (test code = 29882-9) 7.5 5-7 [facility]udaUrine leukocyte esterase detection by fmoiudth6193-89-00 06:00:00* Test Item Value Reference Range Interpretation Comments Urine Leukocyte Esterase (test code = 5799-2) NEGATIVE NEGATIVE [facility]udaUrine nitrite qyiyqgewp5506-46-55 06:00:00* Test Item Value Reference Range Interpretation Comments Urine Nitrite (test code = 01450-4) NEGATIVE NEGATIVE [facility]uda[facility] protein measurement by test strip (mass/volume)2019-10-05 06:00:00* Test Item Value Reference Range Interpretation Comments Urine Protein (test code = 5804-0) NEGATIVE NEGATIVE [facility]uda[facility] glucose rapwmazbp0056-04-11 06:00:00* Test Item Value Reference Range Interpretation Comments Urine Glucose (UA) (test code = 2349-9) 2+ NEGATIVE [facility]uda[facility] ketones detection by automated test [id number] 06:00:00* Test Item Value Reference Range Interpretation Comments Urine Ketones (test code = 43809-0) TRACE NEGATIVE [facility]udaUrine opiates screening [id number] 06:00:00* Test Item Value Reference Range Interpretation Comments Urine Opiates Screen (test code = 89094-4) POSITIVE NEGATIVE This test provides only a screen. Positive results should be repeated by a confi rmatory test.[facility]uda[facility]bit[facility] screen, urine 2019-10-05 06:00:00* Test Item Value Reference Range Interpretation Comments Urine Barbiturates Screen (test code = 109953116) NEGATIVE NEGA TIVE [facility]udaUrine phencyclidine detection by screening [id number] 06:00:00* Test Item Value Reference Range Interpretation Comments Urine Phencyclidine Screen (test code = 80729-0) NEGATIVE NEGAT [place] [facility]udaUrine amphetamines detection by screen method > 1000 [id number] 06:00:00* Test Item Value Reference Range Interpretation Comments Urine Amphetamines Screen (test code = 17286-8) NEGATIVE NEGATI VE [facility] BudaFluoroscopic procedure less than one hour [id number] 06:00:00* Test Item Value Reference Range Interpretation Comments Urine Methamphetamines Screen (test code = Urine Metha mphetamines Screen) NEGATIVE NEGATIVE [facility]udaUrine benzodiazepines detection by screening [id number] 06:00:00* Test Item Value Reference Range Interpretation Comments Urine Benzodiazepines Screen (test code = 65345-6) NEGATIVE NEG ATIVE [facility]udaUrine cocaine measurement (mass/volume) 2019-10-05 06:00:00* Test Item Value Reference Range Interpretation Comments Urine Cocaine Screen (test code = 3398-5) NEGATIVE NEGATIVE [facility]udaUrine cannabinoids detection by screening [id number] 06:00:00* Test Item Value Reference Range Interpretation Comments Urine Cannabinoids Screen (test code = 67772-5) POSITIVE NEGATI VE This test provides only a screen. Positive results should be repeated by a confi rmatory test.[facility]udaUrine methadone screen 2019-10-05 06:00:00* Test Item Value Reference Range Interpretation Comments Urine Methadone Screen (test code = 17299-2) NEGATIVE NEGATIVE THESE RESULTS ARE FOR MEDICAL TREATMENT ONLYTHIS REPORT CONTAINS UNCONFIR MED SCREENING RESULTS*POSITIVE RESULTS WILL BE CONFIRMED BY REFERENCE LAB UPON R EQUEST CUT-OFFDRUG CLASS CONCENTRATION ng/mLAmphetamines 1000Methamphetamines 1000Cocaine Metabolite 300Opiate 300Phencyc lidine 25Cannabinoid 50Barbiturates 300Benzodiazepine 300Methadone 300[facility]udaUrine urobilinogen measurement by test strip (mass/volume)2019-10-05 06:00:00* Test Item Value Reference Range Interpretation Comments Urine Urobilinogen (test code = 04023-9) 0.2 0.2-1 [facility]udaUrine total bilirubin measurement (mass/volume)2019-10-05 06:00:00* Test Item Value Reference Range Interpretation Comments Urine Bilirubin (test code = 1978-6) NEGATIVE NEGATIVE [facility]udaU[facility] erythrocytes [id number] 06:00:00* Test Item Value Reference Range Interpretation Comments Urine Blood (test code = 37060-1) TRACE NEGATIVE [facility] BudaAutomated urine sediment leukocyte count by microscopy (number/high power field)2019-10-05 06:00:00* Test Item Value Reference Range Interpretation Comments Urine WBC (test code = 5821-4) 0-5 0-5 [facility] BudaErythrocytes detection in urine sediment by light vaejseqzir1216-19-94 06:00:00* Test Item Value Reference Range Interpretation Comments Urine RBC (test code = 68573-5) 0-5 0-5 [facility] BudaBacteria detection in urine sediment by light gjldzamkos2547-06-80 06:00:00* Test Item Value Reference Range Interpretation Comments Urine Bacteria (test code = 35945-6) RARE NONE [facility] BudaEpithelial cells detection in urine sediment by light ajnmbfgdpz8827-99-13 06:00:00* Test Item Value Reference Range Interpretation Comments Urine Epithelial Cells (test code = 56190-7) RARE NONE [facility]udaUrine color kvwqenrvsqsom9222-66-83 06:00:00* Test Item Value Reference Range Interpretation Comments Urine Color (test code = 5778-6) YELLOW YELLOW [facility]udaUrine ibhkabh1296-16-52 06:00:00* Test Item Value Reference Range Interpretation Comments Urine Clarity (test code = 99362-8) CLEAR CLEAR [facility]pecific [facility] of Urine by Test strip 2019-10-05 06:00:00* Test Item Value Reference Range Interpretation Comments Urine Specific Hector (test code = 5811-5) 1.020 1.010-1.02 5 [facility]udaU[facility] pH measurement by automated test [id number] 06:00:00* Test Item Value Reference Range Interpretation Comments Urine pH (test code = 03325-5) 7.5 5-7 [facility]udaUrine leukocyte esterase detection by pngfpthn4586-01-43 06:00:00* Test Item Value Reference Range Interpretation Comments Urine Leukocyte Esterase (test code = 5799-2) NEGATIVE NEGATIVE [facility]udaUrine nitrite anqqwuxlp1940-07-13 06:00:00* Test Item Value Reference Range Interpretation Comments Urine Nitrite (test code = 82013-8) NEGATIVE NEGATIVE [facility]udaUrine protein measurement by test strip (mass/volume)2019-10-05 06:00:00* Test Item Value Reference Range Interpretation Comments Urine Protein (test code = 5804-0) NEGATIVE NEGATIVE [facility]udaUrine glucose gidehrvvj2851-90-88 06:00:00* Test Item Value Reference Range Interpretation Comments Urine Glucose (UA) (test code = 2349-9) 2+ NEGATIVE [facility]udaUrine ketones detection by automated test [id number] 06:00:00* Test Item Value Reference Range Interpretation Comments Urine Ketones (test code = 53949-1) TRACE NEGATIVE [facility]udaUrine opiates screening [id number] 06:00:00* Test Item Value Reference Range Interpretation Comments Urine Opiates Screen (test code = 35531-0) POSITIVE NEGATIVE This test provides only a screen. Positive results should be repeated by a confi rmatory test.[facility]udaBarbiturates screen, urine 2019-10-05 06:00:00* Test Item Value Reference Range Interpretation Comments Urine Barbiturates Screen (test code = 352403704) NEGATIVE NEGA TIVE [facility]udaUrine phencyclidine detection by screening tyefuo0129-39-33 06:00:00* Test Item Value Reference Range Interpretation Comments Urine Phencyclidine Screen (test code = 32726-5) NEGATIVE NEGAT GILSON [facility]udaUrine amphetamines detection by screen method > 1000 ng/mI1574-22-99 06:00:00* Test Item Value Reference Range Interpretation Comments Urine Amphetamines Screen (test code = 87968-2) NEGATIVE NEGATI VE [facility] BudaFluoroscopic procedure less than one hour [id number] 06:00:00* Test Item Value Reference Range Interpretation Comments Urine Methamphetamines Screen (test code = Urine Metha mphetamines Screen) NEGATIVE NEGATIVE [facility]udaUrine benzodiazepines detection by screening thkasd9186-03-96 06:00:00* Test Item Value Reference Range Interpretation Comments Urine Benzodiazepines Screen (test code = 32753-7) NEGATIVE NEG ATIVE [facility]udaUrine cocaine measurement (mass/volume) 2019-10-05 06:00:00* Test Item Value Reference Range Interpretation Comments Urine Cocaine Screen (test code = 3398-5) NEGATIVE NEGATIVE [facility]udaUrine cannabinoids detection by screening clluvk1886-72-12 06:00:00* Test Item Value Reference Range Interpretation Comments Urine Cannabinoids Screen (test code = 82338-5) POSITIVE NEGATI VE This test provides only a screen. Positive results should be repeated by a confi rmatory test.[facility]uda[facility] methadone screen 2019-10-05 06:00:00* Test Item Value Reference Range Interpretation Comments Urine Methadone Screen (test code = 22369-4) NEGATIVE NEGATIVE THESE RESULTS ARE FOR MEDICAL TREATMENT ONLYTHIS REPORT CONTAINS UNCONFIR MED SCREENING RESULTS*POSITIVE RESULTS WILL BE CONFIRMED BY REFERENCE LAB UPON R EQUEST CUT-OFFDRUG CLASS CONCENTRATION ng/mLAmphetamines 1000Methamphetamines 1000Cocaine Metabolite 300Opiate 300Phencyc lidine 25Cannabinoid 50Barbiturates 300Benzodiazepine 300Methadone 300[facility] CenterU[facility] urobilinogen measurement by test strip (mass/volume)2019-10-05 06:00:00* Test Item Value Reference Range Interpretation Comments Urine Urobilinogen (test code = 62323-9) 0.2 0.2-1 [facility]udaUrine total bilirubin measurement (mass/volume)2019-10-05 06:00:00* Test Item Value Reference Range Interpretation Comments Urine Bilirubin (test code = 1978-6) NEGATIVE NEGATIVE [facility]udaUrine erythrocytes aysdjkmte4359-20-96 06:00:00* Test Item Value Reference Range Interpretation Comments Urine Blood (test code = 33196-8) TRACE NEGATIVE [facility] BudaAutomated urine sediment leukocyte count by microscopy (number/high power field)2019-10-05 06:00:00* Test Item Value Reference Range Interpretation Comments Urine WBC (test code = 5821-4) 0-5 0-5 [facility] BudaErythrocytes detection in urine sediment by light hysscqhmpf6244-27-18 06:00:00* Test Item Value Reference Range Interpretation Comments Urine RBC (test code = 76618-1) 0-5 0-5 [facility] BudaBacteria detection in urine sediment by light evsiwmhhvj4039-49-95 06:00:00* Test Item Value Reference Range Interpretation Comments Urine Bacteria (test code = 74572-6) RARE NONE [facility] BudaEpithelial cells detection in urine sediment by light jxyvnkwdhj4536-08-20 06:00:00* Test Item Value Reference Range Interpretation Comments Urine Epithelial Cells (test code = 37578-7) RARE NONE [facility]udaUrine color wwyzsdpvchjjf9723-47-71 06:00:00* Test Item Value Reference Range Interpretation Comments Urine Color (test code = 5778-6) YELLOW YELLOW [facility] BudaUrine [id number] 06:00:00* Test Item Value Reference Range Interpretation Comments Urine Clarity (test code = 30940-8) CLEAR CLEAR [facility]pecific [facility] of Urine by Test strip 2019-10-05 06:00:00* Test Item Value Reference Range Interpretation Comments Urine Specific Hector (test code = 5811-5) 1.020 1.010-1.02 5 [facility]udaUrine pH measurement by automated test ieakz2248-70-13 06:00:00* Test Item Value Reference Range Interpretation Comments Urine pH (test code = 60260-8) 7.5 5-7 [facility]udaUrine leukocyte esterase detection by tkelowtd6685-11-63 06:00:00* Test Item Value Reference Range Interpretation Comments Urine Leukocyte Esterase (test code = 5799-2) NEGATIVE NEGATIVE [facility] BudaUrine nitrite xcdclsilj3333-87-34 06:00:00* Test Item Value Reference Range Interpretation Comments Urine Nitrite (test code = 76436-7) NEGATIVE NEGATIVE [facility]udaUrine protein measurement by test strip (mass/volume)2019-10-05 06:00:00* Test Item Value Reference Range Interpretation Comments Urine Protein (test code = 5804-0) NEGATIVE NEGATIVE [facility]udaUrine glucose vihvpkuck7158-35-54 06:00:00* Test Item Value Reference Range Interpretation Comments Urine Glucose (UA) (test code = 2349-9) 2+ NEGATIVE [facility] BudaUrine ketones detection by automated test sacfd1284-18-71 06:00:00* Test Item Value Reference Range Interpretation Comments Urine Ketones (test code = 33279-4) TRACE NEGATIVE [facility] BudaUrine opiates screening bemi0815-05-32 06:00:00* Test Item Value Reference Range Interpretation Comments Urine Opiates Screen (test code = 81951-3) POSITIVE NEGATIVE This test provides only a screen. Positive results should be repeated by a confi rmatory test.[facility]udaBarbiturates screen, urine 2019-10-05 06:00:00* Test Item Value Reference Range Interpretation Comments Urine Barbiturates Screen (test code = 439645144) NEGATIVE NEGA TIVE [facility] BudaUrine phencyclidine detection by screening [id number] 06:00:00* Test Item Value Reference Range Interpretation Comments Urine Phencyclidine Screen (test code = 91368-0) NEGATIVE NEGAT GILSON [facility] BudaUrine amphetamines detection by screen method > 1000 ng/uI4809-79-60 06:00:00* Test Item Value Reference Range Interpretation Comments Urine Amphetamines Screen (test code = 42365-4) NEGATIVE NEGATI VE [facility] BudaFluoroscopic procedure less than one hour uvfwlubg1600-90-47 06:00:00* Test Item Value Reference Range Interpretation Comments Urine Methamphetamines Screen (test code = Urine Metha mphetamines Screen) NEGATIVE NEGATIVE [facility] BudaUrine benzodiazepines detection by screening ktiozm1130-09-10 06:00:00* Test Item Value Reference Range Interpretation Comments Urine Benzodiazepines Screen (test code = 44337-3) NEGATIVE NEG ATIVE [facility]udaUrine cocaine measurement (mass/volume) 2019-10-05 06:00:00* Test Item Value Reference Range Interpretation Comments Urine Cocaine Screen (test code = 3398-5) NEGATIVE NEGATIVE [facility] BudaUrine cannabinoids detection by screening evxgsl0503-64-98 06:00:00* Test Item Value Reference Range Interpretation Comments Urine Cannabinoids Screen (test code = 29867-9) POSITIVE NEGATI VE This test provides only a screen. Positive results should be repeated by a confi rmatory test.[facility]udaUrine methadone screen 2019-10-05 06:00:00* Test Item Value Reference Range Interpretation Comments Urine Methadone Screen (test code = 54478-7) NEGATIVE NEGATIVE THESE RESULTS ARE FOR MEDICAL TREATMENT ONLYTHIS REPORT CONTAINS UNCONFIR MED SCREENING RESULTS*POSITIVE RESULTS WILL BE CONFIRMED BY REFERENCE LAB UPON R EQUEST CUT-OFFDRUG CLASS CONCENTRATION ng/mLAmphetamines 1000Methamphetamines 1000Cocaine Metabolite 300Opiate 300Phencyc lidine 25Cannabinoid 50Barbiturates 300Benzodiazepine 300Methadone 300[facility] CenterUrine urobilinogen measurement by test strip (mass/volume)2019-10-05 06:00:00* Test Item Value Reference Range Interpretation Comments Urine Urobilinogen (test code = 81082-2) 0.2 0.2-1 [facility]udaUrine total bilirubin measurement (mass/volume)2019-10-05 06:00:00* Test Item Value Reference Range Interpretation Comments Urine Bilirubin (test code = 1978-6) NEGATIVE NEGATIVE [facility] BudaUrine erythrocytes wllyzjdju9449-22-56 06:00:00* Test Item Value Reference Range Interpretation Comments Urine Blood (test code = 43580-9) TRACE NEGATIVE [facility] BudaAutomated urine sediment leukocyte count by microscopy (number/high power field)2019-10-05 06:00:00* Test Item Value Reference Range Interpretation Comments Urine WBC (test code = 5821-4) 0-5 0-5 [facility] BudaErythrocytes detection in urine sediment by light tdgzecbkkb8271-98-70 06:00:00* Test Item Value Reference Range Interpretation Comments Urine RBC (test code = 20816-0) 0-5 0-5 [facility] BudaBacteria detection in urine sediment by light qsiyqtoahu1995-50-26 06:00:00* Test Item Value Reference Range Interpretation Comments Urine Bacteria (test code = 35869-2) RARE NONE [facility] BudaEpithelial cells detection in urine sediment by light fqkwolqnzo5069-67-21 06:00:00* Test Item Value Reference Range Interpretation Comments Urine Epithelial Cells (test code = 25058-5) RARE NONE [facility] BudaUrine color hyulxbnmobihj5797-98-56 06:00:00* Test Item Value Reference Range Interpretation Comments Urine Color (test code = 5778-6) YELLOW YELLOW [facility] BudaUrine erjiwze9884-66-00 06:00:00* Test Item Value Reference Range Interpretation Comments Urine Clarity (test code = 87493-1) CLEAR CLEAR [facility]pecific gravity of Urine by Test strip 2019-10-05 06:00:00* Test Item Value Reference Range Interpretation Comments Urine Specific Hector (test code = 5811-5) 1.020 1.010-1.02 5 [facility]udaUrine pH measurement by automated test mexrg4184-37-54 06:00:00* Test Item Value Reference Range Interpretation Comments Urine pH (test code = 50634-5) 7.5 5-7 [facility] BudaUrine leukocyte esterase detection by pottdgsg6877-96-25 06:00:00* Test Item Value Reference Range Interpretation Comments Urine Leukocyte Esterase (test code = 5799-2) NEGATIVE NEGATIVE [facility]udaUrine nitrite wmgkbrbnp4251-22-97 06:00:00* Test Item Value Reference Range Interpretation Comments Urine Nitrite (test code = 73588-2) NEGATIVE NEGATIVE [facility]udaUrine protein measurement by test strip (mass/volume)2019-10-05 06:00:00* Test Item Value Reference Range Interpretation Comments Urine Protein (test code = 5804-0) NEGATIVE NEGATIVE [facility]udaUrine glucose huyoufbrz1904-49-04 06:00:00* Test Item Value Reference Range Interpretation Comments Urine Glucose (UA) (test code = 2349-9) 2+ NEGATIVE [facility] BudaUrine ketones detection by automated test xtrlj9377-32-89 06:00:00* Test Item Value Reference Range Interpretation Comments Urine Ketones (test code = 55883-8) TRACE NEGATIVE [facility] BudaUrine opiates screening hsyh6066-81-59 06:00:00* Test Item Value Reference Range Interpretation Comments Urine Opiates Screen (test code = 11962-1) POSITIVE NEGATIVE This test provides only a screen. Positive results should be repeated by a confi rmatory test.[facility]udaBarbiturates screen, urine 2019-10-05 06:00:00* Test Item Value Reference Range Interpretation Comments Urine Barbiturates Screen (test code = 754870051) NEGATIVE NEGA TIVE [facility] BudaUrine phencyclidine detection by screening bavhbz2066-70-92 06:00:00* Test Item Value Reference Range Interpretation Comments Urine Phencyclidine Screen (test code = 48724-1) NEGATIVE NEGAT GILSON [facility] BudaUrine amphetamines detection by screen method > 1000 ng/jI2474-13-28 06:00:00* Test Item Value Reference Range Interpretation Comments Urine Amphetamines Screen (test code = 59068-5) NEGATIVE NEGATI VE [facility] BudaFluoroscopic procedure less than one hour zgiwyovd6508-51-08 06:00:00* Test Item Value Reference Range Interpretation Comments Urine Methamphetamines Screen (test code = Urine Metha mphetamines Screen) NEGATIVE NEGATIVE [facility] BudaUrine benzodiazepines detection by screening cobcfl1789-53-05 06:00:00* Test Item Value Reference Range Interpretation Comments Urine Benzodiazepines Screen (test code = 45763-0) NEGATIVE NEG ATIVE [facility] BudaUrine cocaine measurement (mass/volume) 2019-10-05 06:00:00* Test Item Value Reference Range Interpretation Comments Urine Cocaine Screen (test code = 3398-5) NEGATIVE NEGATIVE [facility] BudaUrine cannabinoids detection by screening ietdso0145-39-34 06:00:00* Test Item Value Reference Range Interpretation Comments Urine Cannabinoids Screen (test code = 29187-6) POSITIVE NEGATI VE This test provides only a screen. Positive results should be repeated by a confi rmatory test.[facility]udaUrine methadone screen 2019-10-05 06:00:00* Test Item Value Reference Range Interpretation Comments Urine Methadone Screen (test code = 80770-6) NEGATIVE NEGATIVE THESE RESULTS ARE FOR MEDICAL TREATMENT ONLYTHIS REPORT CONTAINS UNCONFIR MED SCREENING RESULTS*POSITIVE RESULTS WILL BE CONFIRMED BY REFERENCE LAB UPON R EQUEST CUT-OFFDRUG CLASS CONCENTRATION ng/mLAmphetamines 1000Methamphetamines 1000Cocaine Metabolite 300Opiate 300Phencyc lidine 25Cannabinoid 50Barbiturates 300Benzodiazepine 300Methadone 300[facility] CenterUrine urobilinogen measurement by test strip (mass/volume)2019-10-05 06:00:00* Test Item Value Reference Range Interpretation Comments Urine Urobilinogen (test code = 65079-1) 0.2 0.2-1 [facility]udaUrine total bilirubin measurement (mass/volume)2019-10-05 06:00:00* Test Item Value Reference Range Interpretation Comments Urine Bilirubin (test code = 1978-6) NEGATIVE NEGATIVE [facility] BudaUrine erythrocytes ilvkgywcd8926-37-01 06:00:00* Test Item Value Reference Range Interpretation Comments Urine Blood (test code = 88406-3) TRACE NEGATIVE [facility] BudaAutomated urine sediment leukocyte count by microscopy (number/high power field)2019-10-05 06:00:00* Test Item Value Reference Range Interpretation Comments Urine WBC (test code = 5821-4) 0-5 0-5 [facility] BudaErythrocytes detection in urine sediment by light falhayqviq2970-10-94 06:00:00* Test Item Value Reference Range Interpretation Comments Urine RBC (test code = 67828-3) 0-5 0-5 [facility] BudaBacteria detection in urine sediment by light waosibvldf6641-75-07 06:00:00* Test Item Value Reference Range Interpretation Comments Urine Bacteria (test code = 18170-4) RARE NONE [facility] BudaEpithelial cells detection in urine sediment by light gbrybsdqyr9679-86-66 06:00:00* Test Item Value Reference Range Interpretation Comments Urine Epithelial Cells (test code = 39955-9) RARE NONE [facility]udaUrine color [id number] 06:00:00* Test Item Value Reference Range Interpretation Comments Urine Color (test code = 5778-6) YELLOW YELLOW [facility] BudaUrine [id number] 06:00:00* Test Item Value Reference Range Interpretation Comments Urine Clarity (test code = 66207-4) CLEAR CLEAR [facility] gravity of Urine by Test strip 2019-10-05 06:00:00* Test Item Value Reference Range Interpretation Comments Urine Specific Hector (test code = 5811-5) 1.020 1.010-1.02 5 [facility] BudaUrine pH measurement by automated test [id number] 06:00:00* Test Item Value Reference Range Interpretation Comments Urine pH (test code = 07949-5) 7.5 5-7 [facility]udaUrine leukocyte esterase detection by [id number] 06:00:00* Test Item Value Reference Range Interpretation Comments Urine Leukocyte Esterase (test code = 5799-2) NEGATIVE NEGATIVE [facility] BudaUrine nitrite [id number] 06:00:00* Test Item Value Reference Range Interpretation Comments Urine Nitrite (test code = 37601-0) NEGATIVE NEGATIVE [facility]udaUrine protein measurement by test strip (mass/volume)2019-10-05 06:00:00* Test Item Value Reference Range Interpretation Comments Urine Protein (test code = 5804-0) NEGATIVE NEGATIVE [facility]udaUrine glucose [id number] 06:00:00* Test Item Value Reference Range Interpretation Comments Urine Glucose (UA) (test code = 2349-9) 2+ NEGATIVE [facility]udaUrine ketones detection by automated test [id number] 06:00:00* Test Item Value Reference Range Interpretation Comments Urine Ketones (test code = 26252-1) TRACE NEGATIVE [facility] BudaUrine opiates screening [id number] 06:00:00* Test Item Value Reference Range Interpretation Comments Urine Opiates Screen (test code = 62145-2) POSITIVE NEGATIVE This test provides only a screen. Positive results should be repeated by a confi rmatory test.[facility]udaBarbiturates screen, urine 2019-10-05 06:00:00* Test Item Value Reference Range Interpretation Comments Urine Barbiturates Screen (test code = 063006791) NEGATIVE NEGA TIVE [facility] BudaUrine phencyclidine detection by screening [id number] 06:00:00* Test Item Value Reference Range Interpretation Comments Urine Phencyclidine Screen (test code = 73560-4) NEGATIVE NEGAT [place] [facility] BudaUrine amphetamines detection by screen method > 1000 [id number] 06:00:00* Test Item Value Reference Range Interpretation Comments Urine Amphetamines Screen (test code = 73728-5) NEGATIVE NEGATI VE [facility] BudaFluoroscopic procedure less than one hour [id number] 06:00:00* Test Item Value Reference Range Interpretation Comments Urine Methamphetamines Screen (test code = Urine Metha mphetamines Screen) NEGATIVE NEGATIVE [facility]udaUrine benzodiazepines detection by screening [id number] 06:00:00* Test Item Value Reference Range Interpretation Comments Urine Benzodiazepines Screen (test code = 93883-6) NEGATIVE NEG ATIVE [facility]udaUrine cocaine measurement (mass/volume) 2019-10-05 06:00:00* Test Item Value Reference Range Interpretation Comments Urine Cocaine Screen (test code = 3398-5) NEGATIVE NEGATIVE [facility] BudaUrine cannabinoids detection by screening [id number] 06:00:00* Test Item Value Reference Range Interpretation Comments Urine Cannabinoids Screen (test code = 35421-6) POSITIVE NEGATI VE This test provides only a screen. Positive results should be repeated by a confi rmatory test.[facility]udaUrine methadone screen 2019-10-05 06:00:00* Test Item Value Reference Range Interpretation Comments Urine Methadone Screen (test code = 36864-0) NEGATIVE NEGATIVE THESE RESULTS ARE FOR MEDICAL TREATMENT ONLYTHIS REPORT CONTAINS UNCONFIR MED SCREENING RESULTS*POSITIVE RESULTS WILL BE CONFIRMED BY REFERENCE LAB UPON R EQUEST CUT-OFFDRUG CLASS CONCENTRATION ng/mLAmphetamines 1000Methamphetamines 1000Cocaine Metabolite 300Opiate 300Phencyc lidine 25Cannabinoid 50Barbiturates 300Benzodiazepine 300Methadone 300[facility] CenterU[facility] urobilinogen measurement by test strip (mass/volume)2019-10-05 06:00:00* Test Item Value Reference Range Interpretation Comments Urine Urobilinogen (test code = 53336-1) 0.2 0.2-1 [facility]udaUrine total bilirubin measurement (mass/volume)2019-10-05 06:00:00* Test Item Value Reference Range Interpretation Comments Urine Bilirubin (test code = 1978-6) NEGATIVE NEGATIVE [facility]udaUrine erythrocytes [id number] 06:00:00* Test Item Value Reference Range Interpretation Comments Urine Blood (test code = 10243-6) TRACE NEGATIVE [facility] BudaAutomated urine sediment leukocyte count by microscopy (number/high power field)2019-10-05 06:00:00* Test Item Value Reference Range Interpretation Comments Urine WBC (test code = 5821-4) 0-5 0-5 [facility] BudaErythrocytes detection in urine sediment by light [id number] 06:00:00* Test Item Value Reference Range Interpretation Comments Urine RBC (test code = 75183-8) 0-5 0-5 [facility] BudaBacteria detection in urine sediment by light [id number] 06:00:00* Test Item Value Reference Range Interpretation Comments Urine Bacteria (test code = 95434-2) RARE NONE [facility] BudaEpithelial cells detection in urine sediment by light qwdnkfudwh9970-98-87 06:00:00* Test Item Value Reference Range Interpretation Comments Urine Epithelial Cells (test code = 30034-4) RARE NONE [facility]udaUrine color rwlurodcccnpb4837-37-47 06:00:00* Test Item Value Reference Range Interpretation Comments Urine Color (test code = 5778-6) YELLOW YELLOW [facility]udaUrine [id number] 06:00:00* Test Item Value Reference Range Interpretation Comments Urine Clarity (test code = 28084-0) CLEAR CLEAR [facility]viewpecific gravity of Urine by Test strip 2019-10-05 06:00:00* Test Item Value Reference Range Interpretation Comments Urine Specific Hector (test code = 5811-5) 1.020 1.010-1.02 5 [facility]udaUrine pH measurement by automated test [id number] 06:00:00* Test Item Value Reference Range Interpretation Comments Urine pH (test code = 25530-0) 7.5 5-7 [facility] BudaUrine leukocyte esterase detection by udeygcyr5690-25-48 06:00:00* Test Item Value Reference Range Interpretation Comments Urine Leukocyte Esterase (test code = 5799-2) NEGATIVE NEGATIVE [facility]udaUrine nitrite [id number] 06:00:00* Test Item Value Reference Range Interpretation Comments Urine Nitrite (test code = 67790-3) NEGATIVE NEGATIVE [facility]udaUrine protein measurement by test strip (mass/volume)2019-10-05 06:00:00* Test Item Value Reference Range Interpretation Comments Urine Protein (test code = 5804-0) NEGATIVE NEGATIVE [facility]udaUrine glucose [id number] 06:00:00* Test Item Value Reference Range Interpretation Comments Urine Glucose (UA) (test code = 2349-9) 2+ NEGATIVE [facility] BudaUrine ketones detection by automated test [id number] 06:00:00* Test Item Value Reference Range Interpretation Comments Urine Ketones (test code = 75769-1) TRACE NEGATIVE [facility] BudaUrine opiates screening [id number] 06:00:00* Test Item Value Reference Range Interpretation Comments Urine Opiates Screen (test code = 59245-0) POSITIVE NEGATIVE This test provides only a screen. Positive results should be repeated by a confi rmatory test.[facility]udaBarbiturates screen, urine 2019-10-05 06:00:00* Test Item Value Reference Range Interpretation Comments Urine Barbiturates Screen (test code = 694428071) NEGATIVE NEGA TIVE [facility] BudaUrine phencyclidine detection by screening [id number] 06:00:00* Test Item Value Reference Range Interpretation Comments Urine Phencyclidine Screen (test code = 16282-8) NEGATIVE NEGAT [place] [facility] BudaUrine amphetamines detection by screen method > 1000 [id number]/jO6226-67-70 06:00:00* Test Item Value Reference Range Interpretation Comments Urine Amphetamines Screen (test code = 00343-8) NEGATIVE NEGATI VE [facility] BudaFluoroscopic procedure less than one hour [id number] 06:00:00* Test Item Value Reference Range Interpretation Comments Urine Methamphetamines Screen (test code = Urine Metha mphetamines Screen) NEGATIVE NEGATIVE [facility]udaUrine benzodiazepines detection by screening [id number] 06:00:00* Test Item Value Reference Range Interpretation Comments Urine Benzodiazepines Screen (test code = 80249-6) NEGATIVE NEG ATIVE [facility]udaUrine cocaine measurement (mass/volume) 2019-10-05 06:00:00* Test Item Value Reference Range Interpretation Comments Urine Cocaine Screen (test code = 3398-5) NEGATIVE NEGATIVE [facility]udaUrine cannabinoids detection by screening colsmu7144-78-00 06:00:00* Test Item Value Reference Range Interpretation Comments Urine Cannabinoids Screen (test code = 75048-0) POSITIVE NEGATI VE This test provides only a screen. Positive results should be repeated by a confi rmatory test.[facility]udaUrine methadone screen 2019-10-05 06:00:00* Test Item Value Reference Range Interpretation Comments Urine Methadone Screen (test code = 02949-7) NEGATIVE NEGATIVE THESE RESULTS ARE FOR MEDICAL TREATMENT ONLYTHIS REPORT CONTAINS UNCONFIR MED SCREENING RESULTS*POSITIVE RESULTS WILL BE CONFIRMED BY REFERENCE LAB UPON R EQUEST CUT-OFFDRUG CLASS CONCENTRATION ng/mLAmphetamines 1000Methamphetamines 1000Cocaine Metabolite 300Opiate 300Phencyc lidine 25Cannabinoid 50Barbiturates 300Benzodiazepine 300Methadone 300[facility] BudaUrine urobilinogen measurement by test strip (mass/volume)2019-10-05 06:00:00* Test Item Value Reference Range Interpretation Comments Urine Urobilinogen (test code = 01899-2) 0.2 0.2-1 [facility]udaUrine total bilirubin measurement (mass/volume)2019-10-05 06:00:00* Test Item Value Reference Range Interpretation Comments Urine Bilirubin (test code = 1978-6) NEGATIVE NEGATIVE [facility]udaUrine erythrocytes [id number] 06:00:00* Test Item Value Reference Range Interpretation Comments Urine Blood (test code = 42108-8) TRACE NEGATIVE [facility] BudaAutomated urine sediment leukocyte count by microscopy (number/high power field)2019-10-05 06:00:00* Test Item Value Reference Range Interpretation Comments Urine WBC (test code = 5821-4) 0-5 0-5 [facility] BudaErythrocytes detection in urine sediment by light ayiayjzvxp8761-36-66 06:00:00* Test Item Value Reference Range Interpretation Comments Urine RBC (test code = 45299-4) 0-5 0-5 [facility] BudaBacteria detection in urine sediment by light blbnsbntui3448-52-60 06:00:00* Test Item Value Reference Range Interpretation Comments Urine Bacteria (test code = 99384-8) RARE NONE [facility] BudaEpithelial cells detection in urine sediment by light yrzajjvwjd0038-69-84 06:00:00* Test Item Value Reference Range Interpretation Comments Urine Epithelial Cells (test code = 06930-9) RARE NONE [facility] BudaProthrombin time (PT) in platelet poor plasma by coagulation [id number] 05:08:00* Test Item Value Reference Range Interpretation Comments Prothrombin Time (test code = 5902-2) 13.4 11.9-14.5 [facility] BudaINR in Platelet poor plasma by Coagulation [id number] 05:08:00* Test Item Value Reference Range Interpretation Comments Prothromb Time International Ratio (test code = 6301-6) 0.96 Oral Anticoagulant Therapy INR Values:1. Low Intensity Therapy 1.5 - 2.02 . Moderate Intensity Therapy 2.0 - 3.03. High Intensity Therapy(1) 2.5 - 3. 54. High Intensity Therapy(2) 3.0 - 4.05. Panic Value INR > 5.0 [facility] BudaProthrombin time (PT) in platelet poor plasma by coagulation [id number] 05:08:00* Test Item Value Reference Range Interpretation Comments Prothrombin Time (test code = 5902-2) 13.4 11.9-14.5 [facility] BudaINR in Platelet poor plasma by Coagulation [id number] 05:08:00* Test Item Value Reference Range Interpretation Comments Prothromb Time International Ratio (test code = 6301-6) 0.96 Oral Anticoagulant Therapy INR Values:1. Low Intensity Therapy 1.5 - 2.02 . Moderate Intensity Therapy 2.0 - 3.03. High Intensity Therapy(1) 2.5 - 3. 54. High Intensity Therapy(2) 3.0 - 4.05. Panic Value INR > 5.0 [facility] BudaProthrombin time (PT) in platelet poor plasma by coagulation [id number] 05:08:00* Test Item Value Reference Range Interpretation Comments Prothrombin Time (test code = 5902-2) 13.4 11.9-14.5 [facility] BudaINR in Platelet poor plasma by Coagulation [id number] 05:08:00* Test Item Value Reference Range Interpretation Comments Prothromb Time International Ratio (test code = 6301-6) 0.96 Oral Anticoagulant Therapy INR Values:1. Low Intensity Therapy 1.5 - 2.02 . Moderate Intensity Therapy 2.0 - 3.03. High Intensity Therapy(1) 2.5 - 3. 54. High Intensity Therapy(2) 3.0 - 4.05. Panic Value INR > 5.0 [facility] BudaProthrombin time (PT) in platelet poor plasma by coagulation [id number] 05:08:00* Test Item Value Reference Range Interpretation Comments Prothrombin Time (test code = 5902-2) 13.4 11.9-14.5 [facility] BudaINR in Platelet poor plasma by Coagulation [id number] 05:08:00* Test Item Value Reference Range Interpretation Comments Prothromb Time International Ratio (test code = 6301-6) 0.96 Oral Anticoagulant Therapy INR Values:1. Low Intensity Therapy 1.5 - 2.02 . Moderate Intensity Therapy 2.0 - 3.03. High Intensity Therapy(1) 2.5 - 3. 54. High Intensity Therapy(2) 3.0 - 4.05. Panic Value INR > 5.0 [facility] BudaProthrombin time (PT) in platelet poor plasma by coagulation [id number] 05:08:00* Test Item Value Reference Range Interpretation Comments Prothrombin Time (test code = 5902-2) 13.4 11.9-14.5 [facility] BudaINR in Platelet poor plasma by Coagulation [id number] 05:08:00* Test Item Value Reference Range Interpretation Comments Prothromb Time International Ratio (test code = 6301-6) 0.96 Oral Anticoagulant Therapy INR Values:1. Low Intensity Therapy 1.5 - 2.02 . Moderate Intensity Therapy 2.0 - 3.03. High Intensity Therapy(1) 2.5 - 3. 54. High Intensity Therapy(2) 3.0 - 4.05. Panic Value INR > 5.0 [facility] BudaProthrombin time (PT) in platelet poor plasma by coagulation [id number] 05:08:00* Test Item Value Reference Range Interpretation Comments Prothrombin Time (test code = 5902-2) 13.4 11.9-14.5 [facility] BudaINR in Platelet poor plasma by Coagulation [id number] 05:08:00* Test Item Value Reference Range Interpretation Comments Prothromb Time International Ratio (test code = 6301-6) 0.96 Oral Anticoagulant Therapy INR Values:1. Low Intensity Therapy 1.5 - 2.02 . Moderate Intensity Therapy 2.0 - 3.03. High Intensity Therapy(1) 2.5 - 3. 54. High Intensity Therapy(2) 3.0 - 4.05. Panic Value INR > 5.0 [facility] BudaCT ABDOMEN/PELVIS [id number] 12:03:00 [facility] [address] [place] [address] Patient Name: BREE LINDSAY MR #: [id number] : 1975 Age/Sex: 43/M Req #: [id number] Adm Physician: ISACC JAVED MD Ordered by: LU SADLER DO Rep ort #: [id number] Location: MED/SURG Room/B ed: 115-1 Procedure: CT/CT ABDOMEN/ PELVIS W Exam Date: 10/04/19 [...] Bilirubin (test code = 1975-2) 0.4 0.2-1.2 [facility] BudaFluoroscopic procedure less than one hour [id number] 06:25:00* Test Item Value Reference Range Interpretation Comments Aspartate Amino Transf (AST/SGOT) (test code = Aspartate Amino Transf (AST/SGOT)) 20 [facility]viewerum or plasma alanine aminotransferase measurement (enzymatic activity/volume)2019-10-04 06:25:00* Test Item Value Reference Range Interpretation Comments Alanine Aminotransferase (ALT/SGPT) (test code = 1742-6) 15 0-55 [facility] Longviewerum or plasma protein measurement (mass/volume)2019-10-04 06:25:00* Test Item Value Reference Range Interpretation Comments Total Protein (test code = 2885-2) 7.2 6.5-8.1 [facility] Longviewerum or plasma albumin measurement (mass/volume)2019-10-04 06:25:00* Test Item Value Reference Range Interpretation Comments Albumin (test code = 1751-7) 3.9 3.5-5.0 [facility] BudaPlasma globulin measurement (mass/volume) 2019-10-04 06:25:00* Test Item Value Reference Range Interpretation Comments Globulin (test code = 63241-7) 3.3 2.3-3.5 [facility] Longviewerum or plasma albumin/globulin mass [id number] 06:25:00* Test Item Value Reference Range Interpretation Comments Albumin/Globulin Ratio (test code = 1759-0) 1.2 0.8-2.0 [facility] Longviewerum or plasma alkaline phosphatase measurement (enzymatic activity/volume)2019-10-04 06:25:00* Test Item Value Reference Range Interpretation Comments Alkaline Phosphatase (test code = 6768-6) 90 40-150 [facility] Longviewerum or plasma total bilirubin measurement (mass/volume)2019-10-04 06:25:00* Test Item Value Reference Range Interpretation Comments Total Bilirubin (test code = 1975-2) 0.4 0.2-1.2 [facility] BudaFluoroscopic procedure less than one hour owzqvniw4803-26-44 06:25:00* Test Item Value Reference Range Interpretation Comments Aspartate Amino Transf (AST/SGOT) (test code = Aspartate Amino Transf (AST/SGOT)) 20 [facility]viewerum or plasma alanine aminotransferase measurement (enzymatic activity/volume)2019-10-04 06:25:00* Test Item Value Reference Range Interpretation Comments Alanine Aminotransferase (ALT/SGPT) (test code = 1742-6) 15 0-55 [facility]viewerum or plasma protein measurement (mass/volume)2019-10-04 06:25:00* Test Item Value Reference Range Interpretation Comments Total Protein (test code = 2885-2) 7.2 6.5-8.1 [facility] Longviewerum or plasma albumin measurement (mass/volume)2019-10-04 06:25:00* Test Item Value Reference Range Interpretation Comments Albumin (test code = 1751-7) 3.9 3.5-5.0 [facility] BudaPlasma globulin measurement (mass/volume) 2019-10-04 06:25:00* Test Item Value Reference Range Interpretation Comments Globulin (test code = 08419-3) 3.3 2.3-3.5 [facility] Longviewerum or plasma albumin/globulin mass [id number] 06:25:00* Test Item Value Reference Range Interpretation Comments Albumin/Globulin Ratio (test code = 1759-0) 1.2 0.8-2.0 [facility]viewerum or plasma alkaline phosphatase measurement (enzymatic activity/volume)2019-10-04 06:25:00* Test Item Value Reference Range Interpretation Comments Alkaline Phosphatase (test code = 6768-6) 90 40-150 [facility]viewerum or plasma total bilirubin measurement (mass/volume)2019-10-04 06:25:00* Test Item Value Reference Range Interpretation Comments Total Bilirubin (test code = 1975-2) 0.4 0.2-1.2 [facility] BudaFluoroscopic procedure less than one hour ifprhwmn1467-23-19 06:25:00* Test Item Value Reference Range Interpretation Comments Aspartate Amino Transf (AST/SGOT) (test code = Aspartate Amino Transf (AST/SGOT)) 20 5-34 [facility]viewerum or plasma alanine aminotransferase measurement (enzymatic activity/volume)2019-10-04 06:25:00* Test Item Value Reference Range Interpretation Comments Alanine Aminotransferase (ALT/SGPT) (test code = 1742-6) 15 0-55 [facility]viewerum or plasma protein measurement (mass/volume)2019-10-04 06:25:00* Test Item Value Reference Range Interpretation Comments Total Protein (test code = 2885-2) 7.2 6.5-8.1 [facility]viewerum or plasma albumin measurement (mass/volume)2019-10-04 06:25:00* Test Item Value Reference Range Interpretation Comments Albumin (test code = 1751-7) 3.9 3.5-5.0 [facility] BudaPlasma globulin measurement (mass/volume) 2019-10-04 06:25:00* Test Item Value Reference Range Interpretation Comments Globulin (test code = 07698-4) 3.3 2.3-3.5 [facility]viewerum or plasma albumin/globulin mass [id number] 06:25:00* Test Item Value Reference Range Interpretation Comments Albumin/Globulin Ratio (test code = 1759-0) 1.2 0.8-2.0 [facility]viewerum or plasma alkaline phosphatase measurement (enzymatic activity/volume)2019-10-04 06:25:00* Test Item Value Reference Range Interpretation Comments Alkaline Phosphatase (test code = 6768-6) 90 40-150 [facility]viewerum or plasma total bilirubin measurement (mass/volume)2019-10-04 06:25:00* Test Item Value Reference Range Interpretation Comments Total Bilirubin (test code = 1975-2) 0.4 0.2-1.2 [facility] BudaFluoroscopic procedure less than one hour [id number] 06:25:00* Test Item Value Reference Range Interpretation Comments Aspartate Amino Transf (AST/SGOT) (test code = Aspartate Amino Transf (AST/SGOT)) 20 5-34 [facility]viewerum or plasma alanine aminotransferase measurement (enzymatic activity/volume)2019-10-04 06:25:00* Test Item Value Reference Range Interpretation Comments Alanine Aminotransferase (ALT/SGPT) (test code = 1742-6) 15 0-55 [facility]viewerum or plasma protein measurement (mass/volume)2019-10-04 06:25:00* Test Item Value Reference Range Interpretation Comments Total Protein (test code = 2885-2) 7.2 6.5-8.1 [facility]viewerum or plasma albumin measurement (mass/volume)2019-10-04 06:25:00* Test Item Value Reference Range Interpretation Comments Albumin (test code = 1751-7) 3.9 3.5-5.0 [facility] BudaPlasma globulin measurement (mass/volume) 2019-10-04 06:25:00* Test Item Value Reference Range Interpretation Comments Globulin (test code = 13919-7) 3.3 2.3-3.5 [facility]viewerum or plasma albumin/globulin mass [id number] 06:25:00* Test Item Value Reference Range Interpretation Comments Albumin/Globulin Ratio (test code = 1759-0) 1.2 0.8-2.0 [facility]viewerum or plasma alkaline phosphatase measurement (enzymatic activity/volume)2019-10-04 06:25:00* Test Item Value Reference Range Interpretation Comments Alkaline Phosphatase (test code = 6768-6) 90 40-150 [facility]viewerum or plasma total bilirubin measurement (mass/volume)2019-10-04 06:25:00* Test Item Value Reference Range Interpretation Comments Total Bilirubin (test code = 1975-2) 0.4 0.2-1.2 [facility] BudaFluoroscopic procedure less than one hour jhadzxud6889-93-43 06:25:00* Test Item Value Reference Range Interpretation Comments Aspartate Amino Transf (AST/SGOT) (test code = Aspartate Amino Transf (AST/SGOT)) 20 5-34 [facility] Longviewerum or plasma alanine aminotransferase measurement (enzymatic activity/volume)2019-10-04 06:25:00* Test Item Value Reference Range Interpretation Comments Alanine Aminotransferase (ALT/SGPT) (test code = 1742-6) 15 0-55 [facility] Longviewerum or plasma protein measurement (mass/volume)2019-10-04 06:25:00* Test Item Value Reference Range Interpretation Comments Total Protein (test code = 2885-2) 7.2 6.5-8.1 [facility] Longviewerum or plasma albumin measurement (mass/volume)2019-10-04 06:25:00* Test Item Value Reference Range Interpretation Comments Albumin (test code = 1751-7) 3.9 3.5-5.0 [facility] BudaPlasma globulin measurement (mass/volume) 2019-10-04 06:25:00* Test Item Value Reference Range Interpretation Comments Globulin (test code = 77936-2) 3.3 2.3-3.5 [facility]viewerum or plasma albumin/globulin mass xfcez1889-56-14 06:25:00* Test Item Value Reference Range Interpretation Comments Albumin/Globulin Ratio (test code = 1759-0) 1.2 0.8-2.0 [facility]viewerum or plasma alkaline phosphatase measurement (enzymatic activity/volume)2019-10-04 06:25:00* Test Item Value Reference Range Interpretation Comments Alkaline Phosphatase (test code = 6768-6) 90 40-150 [facility]viewerum or plasma total bilirubin measurement (mass/volume)2019-10-04 06:25:00* Test Item Value Reference Range Interpretation Comments Total Bilirubin (test code = 1975-2) 0.4 0.2-1.2 [facility] BudaFluoroscopic procedure less than one hour cgirlznq6745-34-83 06:25:00* Test Item Value Reference Range Interpretation Comments Aspartate Amino Transf (AST/SGOT) (test code = Aspartate Amino Transf (AST/SGOT)) 20 5-34 [facility]viewerum or plasma alanine aminotransferase measurement (enzymatic activity/volume)2019-10-04 06:25:00* Test Item Value Reference Range Interpretation Comments Alanine Aminotransferase (ALT/SGPT) (test code = 1742-6) 15 0-55 [facility]viewerum or plasma protein measurement (mass/volume)2019-10-04 06:25:00* Test Item Value Reference Range Interpretation Comments Total Protein (test code = 2885-2) 7.2 6.5-8.1 [facility]viewerum or plasma albumin measurement (mass/volume)2019-10-04 06:25:00* Test Item Value Reference Range Interpretation Comments Albumin (test code = 1751-7) 3.9 3.5-5.0 [facility] BudaPlasma globulin measurement (mass/volume) 2019-10-04 06:25:00* Test Item Value Reference Range Interpretation Comments Globulin (test code = 55041-0) 3.3 2.3-3.5 [facility]viewerum or plasma albumin/globulin mass dyiyk8487-24-53 06:25:00* Test Item Value Reference Range Interpretation Comments Albumin/Globulin Ratio (test code = 1759-0) 1.2 0.8-2.0 [facility]viewerum or plasma alkaline phosphatase measurement (enzymatic activity/volume)2019-10-04 06:25:00* Test Item Value Reference Range Interpretation Comments Alkaline Phosphatase (test code = 6768-6) 90 40-150 [facility] BudaFluoroscopic procedure less than one hour xdfhmnzp5589-32-64 01:50:00* Test Item Value Reference Range Interpretation [...] under 564(g) of the ACT.Testing performed by [address] [id number] BudaFluoroscopic procedure less than one hour duration 2019-10-04 [...] under 564(g) of the ACT.Testing performed by [address] [id number] – BudaCT ABDOMEN/PELVIS [id number] 12:40:00 [place] [address] Patient Name: BREE LINDSAY MR #: [id number] : 1975 Age/Sex: 43/M Req #: [id number] Adm Physician: Ordered by: STACIE FALLON, JEANNIE FALLON Report #: [id number] Location: [facility]/Bed: Procedure: [id number] CT/CT ABD OMEN/PELVIS W Exam Date: 09/30/19 [...] BRYAN MD on 09/30/19 124 Transcribed By: SULAIAMN RAN on 09/30/19 1247 COPY TO: JEANNIE QUINONES Prothrombin time (PT) in platelet poor plasma by coagulation zzoms8319-21-00 09:55:00* Test Item Value Reference Range Interpretation Comments Prothrombin Time (test code = 5902-2) 13.3 11.9-14.5 [facility] BudaINR in Platelet poor plasma by Coagulation pbxck2475-54-04 09:55:00* Test Item Value Reference Range Interpretation Comments Prothromb Time International Ratio (test code = 6301-6) 0.96 Oral Anticoagulant Therapy INR Values:1. Low Intensity Therapy 1.5 - 2.02 . Moderate Intensity Therapy 2.0 - 3.03. High Intensity Therapy(1) 2.5 - 3. 54. High Intensity Therapy(2) 3.0 - 4.05. Panic Value INR > 5.0 [facility] BudaActivated partial thromboplastin time (aPTT) in platelet poor plasma by coagulation kgtkw2428-84-35 09:55:00* Test Item Value Reference Range Interpretation Comments Activated Partial Thromboplast Time (test code = 40673-0) 26.1 23.8-35.5 [facility]viewerum or plasma sodium measurement (moles/volume)2019-09-30 09:55:00* Test Item Value Reference Range Interpretation Comments Sodium Level (test code = 2951-2) 142 136-145 [facility]viewerum or plasma potassium measurement (moles/volume)2019-09-30 09:55:00* Test Item Value Reference Range Interpretation Comments Potassium Level (test code = 2823-3) 3.9 3.5-5.1 [facility] Longviewerum or plasma chloride measurement (moles/volume)2019-09-30 09:55:00* Test Item Value Reference Range Interpretation Comments Chloride Level (test code = 2075-0) 103 98-107 [facility] Longviewerum or plasma carbon dioxide, total measurement (moles/volume)2019-09-30 09:55:00* Test Item Value Reference Range Interpretation Comments Carbon Dioxide Level (test code = 2028-9) 30 22-29 [facility] Longviewerum or plasma anion [id number] 09:55:00* Test Item Value Reference Range Interpretation Comments Anion Gap (test code = 11433-2) 12.9 8-16 [facility] Longviewerum or plasma urea nitrogen measurement (mass/volume)2019-09-30 09:55:00* Test Item Value Reference Range Interpretation Comments Blood Urea Nitrogen (test code = 3094-0) 13 7-26 [facility] Longviewerum or plasma creatinine measurement (mass/volume)2019-09-30 09:55:00* Test Item Value Reference Range Interpretation Comments Creatinine (test code = 2160-0) 1.18 0.72-1.25 [facility] Longviewerum or plasma urea nitrogen/creatinine mass aerky8367-40-01 09:55:00* Test Item Value Reference Range Interpretation Comments BUN/Creatinine Ratio (test code = 3097-3) 11 6-25 [facility] BudaEstimated glomerular filtration rate (GFR) luncuadfytvfz1994-23-57 09:55:00* Test Item Value Reference Range Interpretation Comments Estimat Glomerular Filtration Rate (test code = 843998572) > 60 >60 Ranges were taken from the National Kidney Disease Education Program and the [facility] Kid[employer] Foundation literature.Reference ranges:60 or greater: Uvmdrg96-27 ( for 3 consecutive months): Chronic kidney disease 15 or less: Kidney failureBaylor Scott & White Medical Center – BudaGlucose bvunoxajueq8485-38-01 09:55:00* Test Item Value Reference Range Interpretation Comments Glucose Level (test code = QHB0372) 328 74-118 [facility] Longviewerum or plasma calcium measurement (mass/volume)2019-09-30 09:55:00* Test Item Value Reference Range Interpretation Comments Calcium Level (test code = 10079-2) 8.8 8.4-10.2 [facility] BudaFluoroscopic procedure less than one hour amyydrta8372-87-48 09:55:00* Test Item Value Reference Range Interpretation Comments Lactic Acid Level (test code = Lactic Acid Level) 1.0 0.5- 2.0 [facility] Longviewerum or plasma total bilirubin measurement (mass/volume)2019-09-30 09:55:00* Test Item Value Reference Range Interpretation Comments Total Bilirubin (test code = 1975-2) 0.5 0.2-1.2 [facility] BudaFluoroscopic procedure less than one hour ldldhusr2611-59-43 09:55:00* Test Item Value Reference Range Interpretation Comments Aspartate Amino Transf (AST/SGOT) (test code = Aspartate Amino Transf (AST/SGOT)) 16 5-34 [facility] Longviewerum or plasma alanine aminotransferase measurement (enzymatic activity/volume)2019-09-30 09:55:00* Test Item Value Reference Range Interpretation Comments Alanine Aminotransferase (ALT/SGPT) (test code = 1742-6) 15 0-55 [facility] Longviewerum or plasma protein measurement (mass/volume)2019-09-30 09:55:00* Test Item Value Reference Range Interpretation Comments Total Protein (test code = 2885-2) 6.4 6.5-8.1 [facility]viewerum or plasma albumin measurement (mass/volume)2019-09-30 09:55:00* Test Item Value Reference Range Interpretation Comments Albumin (test code = 1751-7) 3.4 3.5-5.0 [facility] BudaPlasma globulin measurement (mass/volume) 2019-09-30 09:55:00* Test Item Value Reference Range Interpretation Comments Globulin (test code = 21130-3) 3.0 2.3-3.5 [facility] Longviewerum or plasma albumin/globulin mass pdlnm3605-14-47 09:55:00* Test Item Value Reference Range Interpretation Comments Albumin/Globulin Ratio (test code = 1759-0) 1.1 0.8-2.0 [facility]viewerum or plasma alkaline phosphatase measurement (enzymatic activity/volume)2019-09-30 09:55:00* Test Item Value Reference Range Interpretation Comments Alkaline Phosphatase (test code = 6768-6) 92 40-150 [facility] Longviewerum or plasma creatine kinase measurement (enzymatic activity/volume)2019-09-30 09:55:00* Test Item Value Reference Range Interpretation Comments Creatine Kinase (test code = 2157-6) 365 30-200 [facility] Longviewerum or plasma creatine kinase MB measurement (mass/volume)2019-09-30 09:55:00* Test Item Value Reference Range Interpretation Comments Creatine Kinase MB (test code = 77221-2) 1.50 0-5.0 [facility] BudaTroponin I measurement by highly sensitive enzyme yytwbuoyjzw9131-31-59 09:55:00* Test Item Value Reference Range Interpretation Comments Troponin I (test code = 29839-8) 0.001 0-0.300 [facility] Longviewerum or plasma amylase measurement (enzymatic activity/volume)2019-09-30 09:55:00* Test Item Value Reference Range Interpretation Comments Amylase Level (test code = 1798-8) 49 25-125 [facility] Longviewerum or plasma lipase measurement (enzymatic activity/volume)2019-09-30 09:55:00* Test Item Value Reference Range Interpretation Comments Lipase (test code = 3040-3) < 4 8-78 [facility] BudaActivated partial thromboplastin time (aPTT) in platelet poor plasma by coagulation obgeo3162-57-00 09:55:00* Test Item Value Reference Range Interpretation Comments Activated Partial Thromboplast Time (test code = 62483-3) 26.1 23.8-35.5 [facility] BudaFluoroscopic procedure less than one hour jjgmdvug0022-45-94 09:55:00* Test Item Value Reference Range Interpretation Comments Lactic Acid Level (test code = Lactic Acid Level) 1.0 0.5- 2.0 [facility] Longviewerum or plasma creatine kinase measurement (enzymatic activity/volume)2019-09-30 09:55:00* Test Item Value Reference Range Interpretation Comments Creatine Kinase (test code = 2157-6) 365 30-200 [facility] Longviewerum or plasma creatine kinase MB measurement (mass/volume)2019-09-30 09:55:00* Test Item Value Reference Range Interpretation Comments Creatine Kinase MB (test code = 37170-7) 1.50 0-5.0 [facility] BudaTroponin I measurement by highly sensitive enzyme imvhfwtiajw3938-91-14 09:55:00* Test Item Value Reference Range Interpretation Comments Troponin I (test code = 56106-3) 0.001 0-0.300 [facility] Longviewerum or plasma amylase measurement (enzymatic activity/volume)2019-09-30 09:55:00* Test Item Value Reference Range Interpretation Comments Amylase Level (test code = 1798-8) 49 25-125 [facility] Longviewerum or plasma lipase measurement (enzymatic activity/volume)2019-09-30 09:55:00* Test Item Value Reference Range Interpretation Comments Lipase (test code = 3040-3) < 4 8-78 [facility] BudaActivated partial thromboplastin time (aPTT) in platelet poor plasma by coagulation eieme0110-65-76 09:55:00* Test Item Value Reference Range Interpretation Comments Activated Partial Thromboplast Time (test code = 64305-3) 26.1 23.8-35.5 [facility] BudaFluoroscopic procedure less than one hour ygqifcrt9530-85-26 09:55:00* Test Item Value Reference Range Interpretation Comments Lactic Acid Level (test code = Lactic Acid Level) 1.0 0.5- 2.0 [facility] Longviewerum or plasma creatine kinase measurement (enzymatic activity/volume)2019-09-30 09:55:00* Test Item Value Reference Range Interpretation Comments Creatine Kinase (test code = 2157-6) 365 30-200 [facility] Longviewerum or plasma creatine kinase MB measurement (mass/volume)2019-09-30 09:55:00* Test Item Value Reference Range Interpretation Comments Creatine Kinase MB (test code = 09081-5) 1.50 0-5.0 [facility] BudaTroponin I measurement by highly sensitive enzyme ezoyedivzqy8996-26-91 09:55:00* Test Item Value Reference Range Interpretation Comments Troponin I (test code = 68471-9) 0.001 0-0.300 [facility] Longviewerum or plasma amylase measurement (enzymatic activity/volume)2019-09-30 09:55:00* Test Item Value Reference Range Interpretation Comments Amylase Level (test code = 1798-8) 49 25-125 [facility] BudaActivated partial thromboplastin time (aPTT) in platelet poor plasma by coagulation exlne3448-29-66 09:55:00* Test Item Value Reference Range Interpretation Comments Activated Partial Thromboplast Time (test code = 05442-3) 26.1 23.8-35.5 [facility] BudaFluoroscopic procedure less than one hour mlkydpjw5604-56-38 09:55:00* Test Item Value Reference Range Interpretation Comments Lactic Acid Level (test code = Lactic Acid Level) 1.0 0.5- 2.0 [facility] Longviewerum or plasma creatine kinase measurement (enzymatic activity/volume)2019-09-30 09:55:00* Test Item Value Reference Range Interpretation Comments Creatine Kinase (test code = 2157-6) 365 30-200 [facility] Longviewerum or plasma creatine kinase MB measurement (mass/volume)2019-09-30 09:55:00* Test Item Value Reference Range Interpretation Comments Creatine Kinase MB (test code = 70835-3) 1.50 0-5.0 [facility] BudaTroponin I measurement by highly sensitive enzyme ilxwzedplmi9377-79-40 09:55:00* Test Item Value Reference Range Interpretation Comments Troponin I (test code = 73386-3) 0.001 0-0.300 [facility]viewerum or plasma amylase measurement (enzymatic activity/volume)2019-09-30 09:55:00* Test Item Value Reference Range Interpretation Comments Amylase Level (test code = 1798-8) 49 25-125 [facility] BudaActivated partial thromboplastin time (aPTT) in platelet poor plasma by coagulation upgnf7132-36-10 09:55:00* Test Item Value Reference Range Interpretation Comments Activated Partial Thromboplast Time (test code = 72437-8) 26.1 23.8-35.5 [facility] BudaFluoroscopic procedure less than one hour svmprezk0502-22-53 09:55:00* Test Item Value Reference Range Interpretation Comments Lactic Acid Level (test code = Lactic Acid Level) 1.0 0.5- 2.0 [facility] Longviewerum or plasma creatine kinase measurement (enzymatic activity/volume)2019-09-30 09:55:00* Test Item Value Reference Range Interpretation Comments Creatine Kinase (test code = 2157-6) 365 30-200 [facility] Longviewerum or plasma creatine kinase MB measurement (mass/volume)2019-09-30 09:55:00* Test Item Value Reference Range Interpretation Comments Creatine Kinase MB (test code = 83125-5) 1.50 0-5.0 [facility] BudaTroponin I measurement by highly sensitive enzyme jwntlrtfavl1674-68-65 09:55:00* Test Item Value Reference Range Interpretation Comments Troponin I (test code = 46533-9) 0.001 0-0.300 [facility] Longviewerum or plasma amylase measurement (enzymatic activity/volume)2019-09-30 09:55:00* Test Item Value Reference Range Interpretation Comments Amylase Level (test code = 1798-8) 49 25-125 [facility] BudaActivated partial thromboplastin time (aPTT) in platelet poor plasma by coagulation ocpys1386-32-07 09:55:00* Test Item Value Reference Range Interpretation Comments Activated Partial Thromboplast Time (test code = 39225-0) 26.1 23.8-35.5 [facility] BudaFluoroscopic procedure less than one hour fpssnifv0131-18-53 09:55:00* Test Item Value Reference Range Interpretation Comments Lactic Acid Level (test code = Lactic Acid Level) 1.0 0.5- 2.0 [facility] Longviewerum or plasma creatine kinase measurement (enzymatic activity/volume)2019-09-30 09:55:00* Test Item Value Reference Range Interpretation Comments Creatine Kinase (test code = 2157-6) 365 30-200 [facility] Longviewerum or plasma creatine kinase MB measurement (mass/volume)2019-09-30 09:55:00* Test Item Value Reference Range Interpretation Comments Creatine Kinase MB (test code = 76395-9) 1.50 0-5.0 [facility] BudaTroponin I measurement by highly sensitive enzyme aqbuelvbsfj2984-27-09 09:55:00* Test Item Value Reference Range Interpretation Comments Troponin I (test code = 52599-4) 0.001 0-0.300 [facility] Longviewerum or plasma amylase measurement (enzymatic activity/volume)2019-09-30 09:55:00* Test Item Value Reference Range Interpretation Comments Amylase Level (test code = 1798-8) 49 25-125 [facility] BudaActivated partial thromboplastin time (aPTT) in platelet poor plasma by coagulation isart1738-52-97 09:55:00* Test Item Value Reference Range Interpretation Comments Activated Partial Thromboplast Time (test code = 55242-8) 26.1 23.8-35.5 [facility] BudaFluoroscopic procedure less than one hour apkhxyli5904-20-82 09:55:00* Test Item Value Reference Range Interpretation Comments Lactic Acid Level (test code = Lactic Acid Level) 1.0 0.5- 2.0 [facility] Longviewerum or plasma creatine kinase measurement (enzymatic activity/volume)2019-09-30 09:55:00* Test Item Value Reference Range Interpretation Comments Creatine Kinase (test code = 2157-6) 365 30-200 [facility] Longviewerum or plasma creatine kinase MB measurement (mass/volume)2019-09-30 09:55:00* Test Item Value Reference Range Interpretation Comments Creatine Kinase MB (test code = 18733-7) 1.50 0-5.0 [facility] BudaTroponin I measurement by highly sensitive enzyme uzzqucugzmj7400-97-12 09:55:00* Test Item Value Reference Range Interpretation Comments Troponin I (test code = 10670-4) 0.001 0-0.300 [facility] Longviewerum or plasma amylase measurement (enzymatic activity/volume)2019-09-30 09:55:00* Test Item Value Reference Range Interpretation Comments Amylase Level (test code = 1798-8) 49 25-125 [facility]2019-09-30 09:23:00 [facility] [address] [place] [address] Patient Name: BREE LINDSAY MR #: [id number] : 1975 Age/Sex: 43/M Req #: [id number] Adm Physician: Ordered by: JEANNIE QUINONES MD, MD Report #: [id number] Location: ER Room/Bed: Procedure: [id number] DX/CHEST SINGLE (PORTABLE) Exam Date: 09/30/19 Exam Time: 083 5 REPORT STATUS: Signed EXAMINAT ION: CHEST SINGLE (PORTABLE) INDICATION: ERMD ORDER [id number] Y COMPARISON: Chest radiograph 07/23/2019, [...] PAULA on 09/30/19939 COPY TO: JEANNIE QUINONES leukocytes automated count (number/volume)2019-09-30 09:10:00* Test Item Value Reference Range Interpretation Comments White Blood Count (test code = 6690-2) 9.64 4.8-10.8 [facility] BudaBlood erythrocytes automated count (number/volume)2019-09-30 09:10:00* Test Item Value Reference Range Interpretation Comments Red Blood Count (test code = 789-8) 3.70 4.3-5.7 [facility] BudaBlood hemoglobin measurement (moles/volume)2019-09-30 09:10:00* Test Item Value Reference Range Interpretation Comments Hemoglobin (test code = 28206-3) 10.4 14.0-18.0 [facility] BudaAutomated blood hematocrit (volume fraction)2019-09-30 09:10:00* Test Item Value Reference Range Interpretation Comments Hematocrit (test code = 4544-3) 32.9 38.2-49.6 [facility] BudaAutomated erythrocyte mean corpuscular fbfcdg6981-83-18 09:10:00* Test Item Value Reference Range Interpretation Comments Mean Corpuscular Volume (test code = 787-2) 88.9 81-99 [facility] BudaAutomated erythrocyte mean corpuscular hemoglobin (mass per erythrocyte)2019-09-30 09:10:00* Test Item Value Reference Range Interpretation Comments Mean Corpuscular Hemoglobin (test code = 785-6) 28.1 28-32 [facility] BudaAutomated erythrocyte mean corpuscular hemoglobin concentration measurement (mass/volume)2019-09-30 09:10:00* Test Item Value Reference Range Interpretation Comments Mean Corpuscular Hemoglobin Concent (test code = 786-4) 31.6 31-35 [facility] BudaRDW IrfRd-Ggw0297-02-03 09:10:00* Test Item Value Reference Range Interpretation Comments Red Cell Distribution Width (test code = 70970-2) 14.0 11.7 -14.4 [facility] BudaAutomated blood platelet count (count/volume)2019-09-30 09:10:00* Test Item Value Reference Range Interpretation Comments Platelet Count (test code = 777-3) 263 140-360 [facility] BudaAutomated blood segmented neutrophil count as percentage of total sqiylciodj9041-07-58 09:10:00* Test Item Value Reference Range Interpretation Comments Neutrophils (%) (Auto) (test code = 32795-3) 80.4 38.7-80.0 [facility] BudaAutomated blood lymphocyte count as percentage ot total swiivnseey3577-48-28 09:10:00* Test Item Value Reference Range Interpretation Comments Lymphocytes (%) (Auto) (test code = 736-9) 11.5 18.0-39.1 [facility] BudaAutomated blood monocyte count as percentage of total zbxlvwyyez4574-07-58 09:10:00* Test Item Value Reference Range Interpretation Comments Monocytes (%) (Auto) (test code = 5905-5) 6.3 4.4-11.3 [facility] BudaAutomated blood eosinophil count as percentage of total hscwcvjvdi4191-02-22 09:10:00* Test Item Value Reference Range Interpretation Comments Eosinophils (%) (Auto) (test code = 713-8) 0.7 0.0-6.0 [facility] BudaAutomated blood basophil count as percentage of total rueocxhkco4867-78-46 09:10:00* Test Item Value Reference Range Interpretation Comments Basophils (%) (Auto) (test code = 706-2) 0.8 0.0-1.0 [facility] [facility] BudaFluoroscopic procedure less than one hour ltczgeal5923-69-30 09:10:00* Test Item Value Reference Range Interpretation Comments IM GRANULOCYTES % (test code = IM GRANULOCYTES %) 0.3 0.0- 1.0 [facility] BudaAutomated blood neutrophil count 2019-09-30 09:10:00* Test Item Value Reference Range Interpretation Comments Neutrophils # (Auto) (test code = 751-8) 7.7 2.1-6.9 [facility] BudaBlood lymphocytes count (number/volume) 2019-09-30 09:10:00* Test Item Value Reference Range Interpretation Comments Lymphocytes # (Auto) (test code = 41656-1) 1.1 1.0-3.2 [facility] monocytes automated count (number/volume)2019-09-30 09:10:00* Test Item Value Reference Range Interpretation Comments Monocytes # (Auto) (test code = 742-7) 0.6 0.2-0.8 [facility] BudaAutomated blood eosinophil count 2019-09-30 09:10:00* Test Item Value Reference Range Interpretation Comments Eosinophils # (Auto) (test code = 711-2) 0.1 0.0-0.4 [facility] BudaAutquorum healthed blood basophil count (count/volume)2019-09-30 09:10:00* Test Item Value Reference Range Interpretation Comments Basophils # (Auto) (test code = 704-7) 0.1 0.0-0.1 [facility] BudaFluoroscopic procedure less than one hour esejolrw4272-02-52 09:10:00* Test Item Value Reference Range Interpretation Comments Absolute Immature Granulocyte (auto (zeenat t code = Absolute Immature Granulocyte (auto) 0.03 0-0.1 [facility] chfvugq7841-65-65 09:10:00* Test Item Value Reference Range Interpretation Comments Blood Culture (test code = 52348404) NO GROWTH AFTER 5 DAYS, FINAL REPORT [facility] zwlwkqy8453-18-97 09:10:00* Test Item Value Reference Range Interpretation Comments Blood Culture (test code = 75927830) NO GROWTH AFTER 5 DAYS, FINAL REPORT [facility] [id number] 09:10:00* Test Item Value Reference Range Interpretation Comments Blood Culture (test code = 75306557) NO GROWTH AFTER 5 DAYS, FINAL REPORT [facility] gdqqpxv6550-65-83 09:10:00* Test Item Value Reference Range Interpretation Comments Blood Culture (test code = 00671820) NO GROWTH AFTER 5 DAYS, FINAL REPORT [facility] iaubrsn3590-57-83 09:10:00* Test Item Value Reference Range Interpretation Comments Blood Culture (test code = 01375525) NO GROWTH AFTER 5 DAYS, FINAL REPORT [facility] BudaBlood djalbcw3193-36-72 09:10:00* Test Item Value Reference Range Interpretation Comments Blood Culture (test code = 99616112) NO GROWTH AFTER 5 DAYS, FINAL REPORT [facility] BudaUrine color qqnpbmstdbfdb0592-91-72 08:44:00* Test Item Value Reference Range Interpretation Comments Urine Color (test code = 5778-6) YELLOW YELLOW [facility] BudaUrine glmlrgo8504-15-96 08:44:00* Test Item Value Reference Range Interpretation Comments Urine Clarity (test code = 22759-3) CLEAR CLEAR [facility]viewpecific gravity of Urine by Test strip 2019-09-30 08:44:00* Test Item Value Reference Range Interpretation Comments Urine Specific Hector (test code = 5811-5) 1.025 1.010-1.02 5 [facility] BudaUrine pH measurement by automated test ltcsp9835-54-62 08:44:00* Test Item Value Reference Range Interpretation Comments Urine pH (test code = 83109-0) 7 5-7 [facility] BudaUrine leukocyte esterase detection by mxomrqbc5171-22-40 08:44:00* Test Item Value Reference Range Interpretation Comments Urine Leukocyte Esterase (test code = 5799-2) NEGATIVE NEGATIVE [facility] BudaUrine nitrite mcpsktdek1078-44-60 08:44:00* Test Item Value Reference Range Interpretation Comments Urine Nitrite (test code = 70145-3) NEGATIVE NEGATIVE [facility] BudaUrine protein measurement by test strip (mass/volume)2019-09-30 08:44:00* Test Item Value Reference Range Interpretation Comments Urine Protein (test code = 5804-0) 1+ NEGATIVE [facility] BudaUrine glucose cozjteang7717-05-71 08:44:00* Test Item Value Reference Range Interpretation Comments Urine Glucose (UA) (test code = 2349-9) 2+ NEGATIVE [facility] BudaUrine ketones detection by automated test ldhqr0611-37-80 08:44:00* Test Item Value Reference Range Interpretation Comments Urine Ketones (test code = 84424-0) 2+ NEGATIVE [facility] BudaUrine opiates screening cwko1712-63-02 08:44:00* Test Item Value Reference Range Interpretation Comments Urine Opiates Screen (test code = 39892-0) POSITIVE NEGATIVE This test provides only a screen. Positive results should be repeated by a confi rmatory test.[facility] BudaBarbiturates screen, urine 2019-09-30 08:44:00* Test Item Value Reference Range Interpretation Comments Urine Barbiturates Screen (test code = 845624089) NEGATIVE NEGA TIVE [facility] BudaUrine phencyclidine detection by screening qcjhwb4522-29-69 08:44:00* Test Item Value Reference Range Interpretation Comments Urine Phencyclidine Screen (test code = 36112-8) NEGATIVE NEGAT [place] [facility] BudaUrine amphetamines detection by screen method > 1000 ng/uV4162-02-39 08:44:00* Test Item Value Reference Range Interpretation Comments Urine Amphetamines Screen (test code = 50706-0) NEGATIVE NEGATI VE [facility] BudaFluoroscopic procedure less than one hour rfaodysj2447-28-44 08:44:00* Test Item Value Reference Range Interpretation Comments Urine Methamphetamines Screen (test code = Urine Metha mphetamines Screen) NEGATIVE NEGATIVE [facility] BudaUrine benzodiazepines detection by screening phghyz9105-81-54 08:44:00* Test Item Value Reference Range Interpretation Comments Urine Benzodiazepines Screen (test code = 65490-1) POSITIVE NEG ATIVE This test provides only a screen. Positive results should be repeated by a confi rmatory test.[facility] BudaUrine cocaine measurement (mass/volume)2019-09-30 08:44:00* Test Item Value Reference Range Interpretation Comments Urine Cocaine Screen (test code = 3398-5) NEGATIVE NEGATIVE [facility] BudaUrine cannabinoids detection by screening ujxpko5339-40-19 08:44:00* Test Item Value Reference Range Interpretation Comments Urine Cannabinoids Screen (test code = 18804-5) POSITIVE NEGATI VE This test provides only a screen. Positive results should be repeated by a confi rmatory test.[facility] [place]udaUrine methadone screen 2019-09-30 08:44:00* Test Item Value Reference Range Interpretation Comments Urine Methadone Screen (test code = 41746-7) NEGATIVE NEGATIVE THESE RESULTS ARE FOR MEDICAL TREATMENT ONLYTHIS REPORT CONTAINS UNCONFIR MED SCREENING RESULTS*POSITIVE RESULTS WILL BE CONFIRMED BY REFERENCE LAB UPON R EQUEST CUT-OFFDRUG CLASS CONCENTRATION ng/mLAmphetamines 1000Methamphetamines 1000Cocaine Metabolite 300Opiate 300Phencyc lidine 25Cannabinoid 50Barbiturates 300Benzodiazepine 300Methadone 300[facility] CenterU[facility] urobilinogen measurement by test strip (mass/volume)2019-09-30 08:44:00* Test Item Value Reference Range Interpretation Comments Urine Urobilinogen (test code = 83394-4) 0.2 0.2-1 [facility] [place]udaUrine total bilirubin measurement (mass/volume)2019-09-30 08:44:00* Test Item Value Reference Range Interpretation Comments Urine Bilirubin (test code = 1978-6) NEGATIVE NEGATIVE [facility] BudaUrine erythrocytes igajbebhp7785-26-28 08:44:00* Test Item Value Reference Range Interpretation Comments Urine Blood (test code = 17312-1) TRACE NEGATIVE [facility] BudaAutomated urine sediment leukocyte count by microscopy (number/high power field)2019-09-30 08:44:00* Test Item Value Reference Range Interpretation Comments Urine WBC (test code = 5821-4) 21-50 0-5 [facility] BudaErythrocytes detection in urine sediment by light xkwyizojms0904-90-59 08:44:00* Test Item Value Reference Range Interpretation Comments Urine RBC (test code = 41541-9) 6-10 0-5 [facility] BudaBacteria detection in urine sediment by light tobizcrauu1601-85-31 08:44:00* Test Item Value Reference Range Interpretation Comments Urine Bacteria (test code = 73977-8) FEW NONE [facility] BudaEpithelial cells detection in urine sediment by light glcfwcfktp5002-87-39 08:44:00* Test Item Value Reference Range Interpretation Comments Urine Epithelial Cells (test code = 67062-3) RARE NONE [facility] BudaCapillary blood glucose measurement by glucometer (mass/volume)2019-09-24 07:23:00* Test Item Value Reference Range Interpretation Comments Bedside Glucose (test code = 62261-3) 83 70-120 Meter ID: [id number] – BudaCapillary blood glucose measurement by glucometer (mass/volume)2019-09-24 07:23:00* Test Item Value Reference Range Interpretation Comments Bedside Glucose (test code = 75878-6) 83 70-120 Meter ID: [id number] & [facility] – BudaCapillary blood glucose measurement by glucometer (mass/volume)2019-09-24 07:23:00* Test Item Value Reference Range Interpretation Comments Bedside Glucose (test code = 24552-2) 83 70-120 Meter ID: [id number] Scott & [facility] BudaTroponin I measurement by highly sensitive enzyme cqkeqithbdm1651-16-59 09:58:00* Test Item Value Reference Range Interpretation Comments Troponin I (test code = 30648-5) 0.016 0-0.300 [facility] BudaTroponin I measurement by highly sensitive enzyme cnlhncnmmoy9308-71-23 09:58:00* Test Item Value Reference Range Interpretation Comments Troponin I (test code = 62848-0) 0.016 0-0.300 [facility]udaBlk[facility]son [facility] leukocytes automated count (number/volume)2019-09-23 05:42:00* Test Item Value Reference Range Interpretation Comments White Blood Count (test code = 6690-2) 8.62 4.8-10.8 [facility] BudaBlkittson memorial [facility] erythrocytes automated count (number/volume)2019-09-23 05:42:00* Test Item Value Reference Range Interpretation Comments Red Blood Count (test code = 789-8) 3.57 4.3-5.7 [facility] [place]udaBlood hemoglobin measurement (moles/volume)2019-09-23 05:42:00* Test Item Value Reference Range Interpretation Comments Hemoglobin (test code = 98514-8) 10.3 14.0-18.0 [facility] BudaAutomated blood hematocrit (volume fraction)2019-09-23 05:42:00* Test Item Value Reference Range Interpretation Comments Hematocrit (test code = 4544-3) 32.2 38.2-49.6 [facility] BudaAutomated erythrocyte mean corpuscular oaqaxl3204-61-51 05:42:00* Test Item Value Reference Range Interpretation Comments Mean Corpuscular Volume (test code = 787-2) 90.2 81-99 [facility] BudaAutomated erythrocyte mean corpuscular hemoglobin (mass per erythrocyte)2019-09-23 05:42:00* Test Item Value Reference Range Interpretation Comments Mean Corpuscular Hemoglobin (test code = 785-6) 28.9 28-32 [facility] BudaAutomated erythrocyte mean corpuscular hemoglobin concentration measurement (mass/volume)2019-09-23 05:42:00* Test Item Value Reference Range Interpretation Comments Mean Corpuscular Hemoglobin Concent (test code = 786-4) 32.0 31-35 [facility] BudaRDW FrnFf-Rcy3419-70-26 05:42:00* Test Item Value Reference Range Interpretation Comments Red Cell Distribution Width (test code = 85557-9) 13.7 11.7 -14.4 [facility] BudaAutomated blood platelet count (count/volume)2019-09-23 05:42:00* Test Item Value Reference Range Interpretation Comments Platelet Count (test code = 777-3) 183 140-360 [facility] BudaAutomated blood segmented neutrophil count as percentage of total byubhnuyez7012-51-11 05:42:00* Test Item Value Reference Range Interpretation Comments Neutrophils (%) (Auto) (test code = 27521-3) 78.4 38.7-80.0 [facility] BudaAutomated blood lymphocyte count as percentage ot total msiexdkdxj8394-65-13 05:42:00* Test Item Value Reference Range Interpretation Comments Lymphocytes (%) (Auto) (test code = 736-9) 13.1 18.0-39.1 [facility] BudaAutomated blood monocyte count as percentage of total qtinbccfqs4671-27-67 05:42:00* Test Item Value Reference Range Interpretation Comments Monocytes (%) (Auto) (test code = 5905-5) 7.7 4.4-11.3 [facility] [place]udaAutomated blood eosinophil count as percentage of total edhdvcglga1494-06-14 05:42:00* Test Item Value Reference Range Interpretation Comments Eosinophils (%) (Auto) (test code = 713-8) 0.1 0.0-6.0 [facility] BudaAutomated blood basophil count as percentage of total fswzugjccv3530-85-93 05:42:00* Test Item Value Reference Range Interpretation Comments Basophils (%) (Auto) (test code = 706-2) 0.5 0.0-1.0 [facility] BudaFluoroscopic procedure less than one hour aemjnhqw0134-34-55 05:42:00* Test Item Value Reference Range Interpretation Comments IM GRANULOCYTES % (test code = IM GRANULOCYTES %) 0.2 0.0- 1.0 [facility] BudaAutomated blood neutrophil count 2019-09-23 05:42:00* Test Item Value Reference Range Interpretation Comments Neutrophils # (Auto) (test code = 751-8) 6.8 2.1-6.9 [facility] BudaBlood lymphocytes count (number/volume) 2019-09-23 05:42:00* Test Item Value Reference Range Interpretation Comments Lymphocytes # (Auto) (test code = 27411-2) 1.1 1.0-3.2 [facility] BudaBlood monocytes automated count (number/volume)2019-09-23 05:42:00* Test Item Value Reference Range Interpretation Comments Monocytes # (Auto) (test code = 742-7) 0.7 0.2-0.8 [facility] BudaAutomated blood eosinophil count 2019-09-23 05:42:00* Test Item Value Reference Range Interpretation Comments Eosinophils # (Auto) (test code = 711-2) 0.0 0.0-0.4 [facility] BudaAutomated blood basophil count (count/volume)2019-09-23 05:42:00* Test Item Value Reference Range Interpretation Comments Basophils # (Auto) (test code = 704-7) 0.0 0.0-0.1 [facility] BudaFluoroscopic procedure less than one hour oxemrteq4473-52-61 05:42:00* Test Item Value Reference Range Interpretation Comments Absolute Immature Granulocyte (auto (zeenat t code = Absolute Immature Granulocyte (auto) 0.02 0-0.1 [facility] Longviewerum or plasma sodium measurement (moles/volume)2019-09-23 05:42:00* Test Item Value Reference Range Interpretation Comments Sodium Level (test code = 2951-2) 138 136-145 [facility] Longviewerum or plasma potassium measurement (moles/volume)2019-09-23 05:42:00* Test Item Value Reference Range Interpretation Comments Potassium Level (test code = 2823-3) 3.6 3.5-5.1 [facility] Longviewerum or plasma chloride measurement (moles/volume)2019-09-23 05:42:00* Test Item Value Reference Range Interpretation Comments Chloride Level (test code = 2075-0) 101 98-107 [facility] Longviewerum or plasma carbon dioxide, total measurement (moles/volume)2019-09-23 05:42:00* Test Item Value Reference Range Interpretation Comments Carbon Dioxide Level (test code = 2028-9) 28 22-29 [facility] Longviewerum or plasma anion cis6999-40-04 05:42:00* Test Item Value Reference Range Interpretation Comments Anion Gap (test code = 29940-8) 12.6 8-16 [facility] Longviewerum or plasma urea nitrogen measurement (mass/volume)2019-09-23 05:42:00* Test Item Value Reference Range Interpretation Comments Blood Urea Nitrogen (test code = 3094-0) 22 7-26 [facility] Longviewerum or plasma creatinine measurement (mass/volume)2019-09-23 05:42:00* Test Item Value Reference Range Interpretation Comments Creatinine (test code = 2160-0) 1.16 0.72-1.25 [facility] Longviewerum or plasma urea nitrogen/creatinine mass eggsd1352-34-08 05:42:00* Test Item Value Reference Range Interpretation Comments BUN/Creatinine Ratio (test code = 3097-3) 19 6-25 [facility] BudaEstimated glomerular filtration rate (GFR) hovkeydhsqkru4556-84-50 05:42:00* Test Item Value Reference Range Interpretation Comments Estimat Glomerular Filtration Rate (test code = 030451837) > 60 >60 Ranges were taken from the National Kidney Disease Education Program and the [facility] literature.Reference ranges:60 or greater: Vthddm20-75 ( for 3 consecutive months): Chronic kidney disease 15 or less: Kidney failureBaylor Scott & White [facility] Center – BudaGlucose pyktiltidan8168-65-38 05:42:00* Test Item Value Reference Range Interpretation Comments Glucose Level (test code = VPK2403) 266 74-118 [facility] Longviewerum or plasma calcium measurement (mass/volume)2019-09-23 05:42:00* Test Item Value Reference Range Interpretation Comments Calcium Level (test code = 83620-0) 8.3 8.4-10.2 [facility] Longviewerum or plasma total bilirubin measurement (mass/volume)2019-09-23 05:42:00* Test Item Value Reference Range Interpretation Comments Total Bilirubin (test code = 1975-2) 0.4 0.2-1.2 [facility] BudaFluoroscopic procedure less than one hour jivevkvg5069-58-14 05:42:00* Test Item Value Reference Range Interpretation Comments Aspartate Amino Transf (AST/SGOT) (test code = Aspartate Amino Transf (AST/SGOT)) 14 5-34 [facility] Longviewerum or plasma alanine aminotransferase measurement (enzymatic activity/volume)2019-09-23 05:42:00* Test Item Value Reference Range Interpretation Comments Alanine Aminotransferase (ALT/SGPT) (test code = 1742-6) 14 0-55 [facility] Longviewerum or plasma protein measurement (mass/volume)2019-09-23 05:42:00* Test Item Value Reference Range Interpretation Comments Total Protein (test code = 2885-2) 6.2 6.5-8.1 [facility] Longviewerum or plasma albumin measurement (mass/volume)2019-09-23 05:42:00* Test Item Value Reference Range Interpretation Comments Albumin (test code = 1751-7) 3.4 3.5-5.0 [facility] BudaPlasma globulin measurement (mass/volume) 2019-09-23 05:42:00* Test Item Value Reference Range Interpretation Comments Globulin (test code = 35190-0) 2.8 2.3-3.5 [facility] Longviewerum or plasma albumin/globulin mass ndklt4367-33-40 05:42:00* Test Item Value Reference Range Interpretation Comments Albumin/Globulin Ratio (test code = 1759-0) 1.2 0.8-2.0 [facility] Longviewerum or plasma alkaline phosphatase measurement (enzymatic activity/volume)2019-09-23 05:42:00* Test Item Value Reference Range Interpretation Comments Alkaline Phosphatase (test code = 6768-6) 108 40-150 [facility] BudaBlood leukocytes automated count (number/volume)2019-09-23 05:42:00* Test Item Value Reference Range Interpretation Comments White Blood Count (test code = 6690-2) 8.62 4.8-10.8 [facility] BudaBlood erythrocytes automated count (number/volume)2019-09-23 05:42:00* Test Item Value Reference Range Interpretation Comments Red Blood Count (test code = 789-8) 3.57 4.3-5.7 [facility] BudaBlood hemoglobin measurement (moles/volume)2019-09-23 05:42:00* Test Item Value Reference Range Interpretation Comments Hemoglobin (test code = 57696-3) 10.3 14.0-18.0 [facility] BudaAutomated blood hematocrit (volume fraction)2019-09-23 05:42:00* Test Item Value Reference Range Interpretation Comments Hematocrit (test code = 4544-3) 32.2 38.2-49.6 [facility] BudaAutomated erythrocyte mean corpuscular sjzgfl6797-24-15 05:42:00* Test Item Value Reference Range Interpretation Comments Mean Corpuscular Volume (test code = 787-2) 90.2 81-99 [facility] BudaAutomated erythrocyte mean corpuscular hemoglobin (mass per erythrocyte)2019-09-23 05:42:00* Test Item Value Reference Range Interpretation Comments Mean Corpuscular Hemoglobin (test code = 785-6) 28.9 28-32 [facility] BudaAutomated erythrocyte mean corpuscular hemoglobin concentration measurement (mass/volume)2019-09-23 05:42:00* Test Item Value Reference Range Interpretation Comments Mean Corpuscular Hemoglobin Concent (test code = 786-4) 32.0 31-35 [facility] BudaRDW DhnQf-Npi2768-90-26 05:42:00* Test Item Value Reference Range Interpretation Comments Red Cell Distribution Width (test code = 45198-3) 13.7 11.7 -14.4 [facility] BudaAutomated blood platelet count (count/volume)2019-09-23 05:42:00* Test Item Value Reference Range Interpretation Comments Platelet Count (test code = 777-3) 183 140-360 [facility] BudaAutomated blood segmented neutrophil count as percentage of total wfxetagusy3637-92-09 05:42:00* Test Item Value Reference Range Interpretation Comments Neutrophils (%) (Auto) (test code = 34760-0) 78.4 38.7-80.0 [facility] BudaAutomated blood lymphocyte count as percentage ot total ovmixntszp5498-55-72 05:42:00* Test Item Value Reference Range Interpretation Comments Lymphocytes (%) (Auto) (test code = 736-9) 13.1 18.0-39.1 [facility] BudaAutomated blood monocyte count as percentage of total dfstdjoxts2005-84-31 05:42:00* Test Item Value Reference Range Interpretation Comments Monocytes (%) (Auto) (test code = 5905-5) 7.7 4.4-11.3 [facility] BudaAutomated blood eosinophil count as percentage of total nrrtstrcpi9184-00-18 05:42:00* Test Item Value Reference Range Interpretation Comments Eosinophils (%) (Auto) (test code = 713-8) 0.1 0.0-6.0 [facility] BudaAutomated blood basophil count as percentage of total wplwyakjdg4048-33-75 05:42:00* Test Item Value Reference Range Interpretation Comments Basophils (%) (Auto) (test code = 706-2) 0.5 0.0-1.0 [facility] BudaFluoroscopic procedure less than one hour ttcrvegz6573-96-15 05:42:00* Test Item Value Reference Range Interpretation Comments IM GRANULOCYTES % (test code = IM GRANULOCYTES %) 0.2 0.0- 1.0 [facility] BudaAutomated blood neutrophil count 2019-09-23 05:42:00* Test Item Value Reference Range Interpretation Comments Neutrophils # (Auto) (test code = 751-8) 6.8 2.1-6.9 [facility] BudaBlood lymphocytes count (number/volume) 2019-09-23 05:42:00* Test Item Value Reference Range Interpretation Comments Lymphocytes # (Auto) (test code = 34461-8) 1.1 1.0-3.2 [facility] BudaBlood monocytes automated count (number/volume)2019-09-23 05:42:00* Test Item Value Reference Range Interpretation Comments Monocytes # (Auto) (test code = 742-7) 0.7 0.2-0.8 [facility] BudaAutomated blood eosinophil count 2019-09-23 05:42:00* Test Item Value Reference Range Interpretation Comments Eosinophils # (Auto) (test code = 711-2) 0.0 0.0-0.4 [facility] BudaAutomated blood basophil count (count/volume)2019-09-23 05:42:00* Test Item Value Reference Range Interpretation Comments Basophils # (Auto) (test code = 704-7) 0.0 0.0-0.1 [facility] BudaFluoroscopic procedure less than one hour fuptffww6773-19-65 05:42:00* Test Item Value Reference Range Interpretation Comments Absolute Immature Granulocyte (auto (zeenat t code = Absolute Immature Granulocyte (auto) 0.02 0-0.1 [facility] or plasma sodium measurement (moles/volume)2019-09-23 05:42:00* Test Item Value Reference Range Interpretation Comments Sodium Level (test code = 2951-2) 138 136-145 [facility]erum or plasma potassium measurement (moles/volume)2019-09-23 05:42:00* Test Item Value Reference Range Interpretation Comments Potassium Level (test code = 2823-3) 3.6 3.5-5.1 [facility]erum or plasma chloride measurement (moles/volume)2019-09-23 05:42:00* Test Item Value Reference Range Interpretation Comments Chloride Level (test code = 2075-0) 101 98-107 [facility]erum or plasma carbon dioxide, total measurement (moles/volume)2019-09-23 05:42:00* Test Item Value Reference Range Interpretation Comments Carbon Dioxide Level (test code = 2028-9) 28 22-29 [facility]erum or plasma anion lsp4361-49-30 05:42:00* Test Item Value Reference Range Interpretation Comments Anion Gap (test code = 14657-0) 12.6 8-16 [facility]erum or plasma urea nitrogen measurement (mass/volume)2019-09-23 05:42:00* Test Item Value Reference Range Interpretation Comments Blood Urea Nitrogen (test code = 3094-0) 22 7-26 [facility]um or plasma creatinine measurement (mass/volume)2019-09-23 05:42:00* Test Item Value Reference Range Interpretation Comments Creatinine (test code = 2160-0) 1.16 0.72-1.25 [facility]um or plasma urea nitrogen/creatinine mass flvuq5491-89-29 05:42:00* Test Item Value Reference Range Interpretation Comments BUN/Creatinine Ratio (test code = 3097-3) 19 6-25 [facility] BudaEstimated glomerular filtration rate (GFR) xqeinaegyfhxl8614-60-47 05:42:00* Test Item Value Reference Range Interpretation Comments Estimat Glomerular Filtration Rate (test code = 374926227) > 60 >60 Ranges were taken from the National Kidney Disease Education Program and the [facility] Foundation literature.Reference ranges:60 or greater: Xahyhh24-31 ( for 3 consecutive months): Chronic kidney disease 15 or less: Kidney failureBaylor Scott & White [facility] – BudaGlucose vijhavjdrke4250-07-74 05:42:00* Test Item Value Reference Range Interpretation Comments Glucose Level (test code = BCO2968) 266 74-118 [facility]erum or plasma calcium measurement (mass/volume)2019-09-23 05:42:00* Test Item Value Reference Range Interpretation Comments Calcium Level (test code = 19172-8) 8.3 8.4-10.2 [facility]um or plasma total bilirubin measurement (mass/volume)2019-09-23 05:42:00* Test Item Value Reference Range Interpretation Comments Total Bilirubin (test code = 1975-2) 0.4 0.2-1.2 [facility] BudaFluoroscopic procedure less than one hour iybwjgou8818-08-49 05:42:00* Test Item Value Reference Range Interpretation Comments Aspartate Amino Transf (AST/SGOT) (test code = Aspartate Amino Transf (AST/SGOT)) 14 5-34 [facility]erum or plasma alanine aminotransferase measurement (enzymatic activity/volume)2019-09-23 05:42:00* Test Item Value Reference Range Interpretation Comments Alanine Aminotransferase (ALT/SGPT) (test code = 1742-6) 14 0-55 [facility]erum or plasma protein measurement (mass/volume)2019-09-23 05:42:00* Test Item Value Reference Range Interpretation Comments Total Protein (test code = 2885-2) 6.2 6.5-8.1 [facility]erum or plasma albumin measurement (mass/volume)2019-09-23 05:42:00* Test Item Value Reference Range Interpretation Comments Albumin (test code = 1751-7) 3.4 3.5-5.0 [facility] BudaPlasma globulin measurement (mass/volume) 2019-09-23 05:42:00* Test Item Value Reference Range Interpretation Comments Globulin (test code = 45330-8) 2.8 2.3-3.5 [facility]erum or plasma albumin/globulin mass tnvjg6339-60-02 05:42:00* Test Item Value Reference Range Interpretation Comments Albumin/Globulin Ratio (test code = 1759-0) 1.2 0.8-2.0 [facility]erum or plasma alkaline phosphatase measurement (enzymatic activity/volume)2019-09-23 05:42:00* Test Item Value Reference Range Interpretation Comments Alkaline Phosphatase (test code = 6768-6) 108 40-150 [facility] BudaABDOMEN-1VIEW (KUB)2019-09-22 13:59:00 [facility] [address] [place] [address] Patient Name: BREE LINDSAY MR #: [id number] : 1975 Age/Sex: 43/M Req #: [id number] Adm Physician: RUSLAN CARTER MD Ordered by: RUSLAN CARTER MD Re port #: [id number] Location: [facility] Room/ Bed: [facility] Procedure: [id number] DX/ABDOMEN-1V IEW (B) Exam Date: 09/22/19 Exam Time: 1330 REPORT [...] Interpretation Comments Bedside Glucose (test code = 31756-1) 179 70-120 Meter ID: [id number] [facility] CenterCapillary blood glucose measurement by glucometer (mass/volume)2019-08-25 11:40:00* Test Item Value Reference Range Interpretation Comments Bedside Glucose (test code = 97694-3) 179 70-120 Meter ID: [id number] [facility] CenterFluoroscopic procedure less than one hour hvfatdwq0980-67-12 13:20:00* Test Item Value Reference Range Interpretation [...] complexity tests.Testing performed by [facility] [address] [place] [address] [phone] Director: Yuri Perry M.D.CLIA # [id number] [facility] Fluoroscopic procedure less than one hour yhaxwfto0470-16-66 13:20:00* Test Item Value Reference Range Interpretation [...] complexity tests.Testing performed by [facility] [address] [place] [address] [phone] Director: Yuri Perry M.D.CLTIFFANY # [id number] [facility] Fluoroscopic procedure less than one hour izxbwdcs5856-39-49 13:20:00* Test Item Value Reference Range Interpretation [...] tests.Testing performed by [facility] [address] [phone] Director: Yuri Perry M.D.CLIA # [id number] [facility] Fluoroscopic procedure less than one hour opyjvtys4523-32-61 13:20:00* Test Item Value Reference Range Interpretation [...] tests.Testing performed by [facility] [address] [phone] Director: Yuri Perry M.D.CLIA # [id number] [facility] Fluoroscopic procedure less than one hour gjmicngc5066-40-94 13:20:00* Test Item Value Reference Range Interpretation [...] section 360bbb-3(b)(1), unless the authorization is termina raben or revoked sooner. [facility] are certified under the C linical Laboratory Improvement Amendments of 1988 (CLIA), 42 U.S.C. section 263a , to perform high complexity tests.Testing performed by [facility] [address] [place], [place] [phone] Director: Yuri Perry M.D.CLIA # [id number] [facility] Capillary blood glucose measurement by glucometer (mass/volume)2019-07-24 11:15:00* Test Item Value Reference Range Interpretation Comments Bedside Glucose (test code = 10003-1) 145 70-120 Meter ID: [id number] [facility]Blood leukocytes automated count (number/volume)2019-07-24 06:10:00* Test Item Value Reference Range Interpretation Comments White Blood Count (test code = 6690-2) 6.43 4.8-10.8 [facility] BudaBlood erythrocytes automated count (number/volume)2019-07-24 06:10:00* Test Item Value Reference Range Interpretation Comments Red Blood Count (test code = 789-8) 3.29 4.3-5.7 [facility] Centerood hemoglobin measurement (moles/volume)2019-07-24 06:10:00* Test Item Value Reference Range Interpretation Comments Hemoglobin (test code = 21367-5) 9.4 14.0-18.0 [facility] BudaAutomated blood hematocrit (volume fraction)2019-07-24 06:10:00* Test Item Value Reference Range Interpretation Comments Hematocrit (test code = 4544-3) 29.7 38.2-49.6 [facility] BudaAutomated erythrocyte mean corpuscular xrnoae2926-23-68 06:10:00* Test Item Value Reference Range Interpretation Comments Mean Corpuscular Volume (test code = 787-2) 90.3 81-99 [facility] BudaAutomated erythrocyte mean corpuscular hemoglobin (mass per erythrocyte)2019-07-24 06:10:00* Test Item Value Reference Range Interpretation Comments Mean Corpuscular Hemoglobin (test code = 785-6) 28.6 28-32 [facility] BudaAutomated erythrocyte mean corpuscular hemoglobin concentration measurement (mass/volume)2019-07-24 06:10:00* Test Item Value Reference Range Interpretation Comments Mean Corpuscular Hemoglobin Concent (test code = 786-4) 31.6 31-35 [facility] BudaRDW XqhXm-Sbd1657-40-26 06:10:00* Test Item Value Reference Range Interpretation Comments Red Cell Distribution Width (test code = 97189-7) 14.5 11.7 -14.4 [facility] BudaAutomated blood platelet count (count/volume)2019-07-24 06:10:00* Test Item Value Reference Range Interpretation Comments Platelet Count (test code = 777-3) 132 140-360 [facility] BudaAutomated blood segmented neutrophil count as percentage of total rywysvmfbk3056-06-73 06:10:00* Test Item Value Reference Range Interpretation Comments Neutrophils (%) (Auto) (test code = 54178-2) 61.3 38.7-80.0 [facility] BudaAutomated blood lymphocyte count as percentage ot total wtempelafr7797-59-01 06:10:00* Test Item Value Reference Range Interpretation Comments Lymphocytes (%) (Auto) (test code = 736-9) 24.9 18.0-39.1 [facility] BudaAutomated blood monocyte count as percentage of total yaclkrdbqe8409-44-77 06:10:00* Test Item Value Reference Range Interpretation Comments Monocytes (%) (Auto) (test code = 5905-5) 10.0 4.4-11.3 [facility] BudaAutomated blood eosinophil count as percentage of total ehbvgppnfw2386-07-43 06:10:00* Test Item Value Reference Range Interpretation Comments Eosinophils (%) (Auto) (test code = 713-8) 2.6 0.0-6.0 [facility] BudaAutomated blood basophil count as percentage of total jorhdganhi7890-33-02 06:10:00* Test Item Value Reference Range Interpretation Comments Basophils (%) (Auto) (test code = 706-2) 0.9 0.0-1.0 [facility] BudaFluoroscopic procedure less than one hour qhvwlkjv0820-21-73 06:10:00* Test Item Value Reference Range Interpretation Comments IM GRANULOCYTES % (test code = IM GRANULOCYTES %) 0.3 0.0- 1.0 [facility] BudaAutomated blood neutrophil count 2019-07-24 06:10:00* Test Item Value Reference Range Interpretation Comments Neutrophils # (Auto) (test code = 751-8) 3.9 2.1-6.9 [facility] BudaBlood lymphocytes count (number/volume) 2019-07-24 06:10:00* Test Item Value Reference Range Interpretation Comments Lymphocytes # (Auto) (test code = 70206-1) 1.6 1.0-3.2 [facility] BudaBlood monocytes automated count (number/volume)2019-07-24 06:10:00* Test Item Value Reference Range Interpretation Comments Monocytes # (Auto) (test code = 742-7) 0.6 0.2-0.8 [facility] BudaAutomated blood eosinophil count 2019-07-24 06:10:00* Test Item Value Reference Range Interpretation Comments Eosinophils # (Auto) (test code = 711-2) 0.2 0.0-0.4 [facility] BudaAutomated blood basophil count (count/volume)2019-07-24 06:10:00* Test Item Value Reference Range Interpretation Comments Basophils # (Auto) (test code = 704-7) 0.1 0.0-0.1 [facility] BudaFluoroscopic procedure less than one hour upaffqkc0647-99-36 06:10:00* Test Item Value Reference Range Interpretation Comments Absolute Immature Granulocyte (auto (zeenat t code = Absolute Immature Granulocyte (auto) 0.02 0-0.1 [facility]erum or plasma sodium measurement (moles/volume)2019-07-24 06:10:00* Test Item Value Reference Range Interpretation Comments Sodium Level (test code = 2951-2) 136 136-145 [facility]viewerum or plasma potassium measurement (moles/volume)2019-07-24 06:10:00* Test Item Value Reference Range Interpretation Comments Potassium Level (test code = 2823-3) 3.7 3.5-5.1 [facility]viewerum or plasma chloride measurement (moles/volume)2019-07-24 06:10:00* Test Item Value Reference Range Interpretation Comments Chloride Level (test code = 2075-0) 106 98-107 [facility]viewerum or plasma carbon dioxide, total measurement (moles/volume)2019-07-24 06:10:00* Test Item Value Reference Range Interpretation Comments Carbon Dioxide Level (test code = 2028-9) 23 22-29 [facility]viewerum or plasma anion vev1504-43-76 06:10:00* Test Item Value Reference Range Interpretation Comments Anion Gap (test code = 33475-0) 10.7 8-16 [facility]viewerum or plasma urea nitrogen measurement (mass/volume)2019-07-24 06:10:00* Test Item Value Reference Range Interpretation Comments Blood Urea Nitrogen (test code = 3094-0) 13 7-26 [facility]viewerum or plasma creatinine measurement (mass/volume)2019-07-24 06:10:00* Test Item Value Reference Range Interpretation Comments Creatinine (test code = 2160-0) 1.24 0.72-1.25 [facility]viewerum or plasma urea nitrogen/creatinine mass lwlvg3208-32-65 06:10:00* Test Item Value Reference Range Interpretation Comments BUN/Creatinine Ratio (test code = 3097-3) 10 6-25 [facility] BudaEstimated glomerular filtration rate (GFR) nlrdkoflnqqey7315-68-71 06:10:00* Test Item Value Reference Range Interpretation Comments Estimat Glomerular Filtration Rate (test code = 130257925) > 60 >60 Ranges were taken from the National Kidney Disease Education Program and the [facility] Kid[facility] Foundation literature.Reference ranges:60 or greater: Zdojiu65-55 ( for 3 consecutive months): Chronic kidney disease 15 or less: Kidney failureBaylor Scott & White Medical Center – BudaGlucose bxjftzobwmc2635-77-99 06:10:00* Test Item Value Reference Range Interpretation Comments Glucose Level (test code = VJA7052) 148 74-118 [facility]viewerum or plasma calcium measurement (mass/volume)2019-07-24 06:10:00* Test Item Value Reference Range Interpretation Comments Calcium Level (test code = 56879-0) 8.6 8.4-10.2 [facility]viewerum or plasma total bilirubin measurement (mass/volume)2019-07-24 06:10:00* Test Item Value Reference Range Interpretation Comments Total Bilirubin (test code = 1975-2) 0.5 0.2-1.2 [facility] BudaFluoroscopic procedure less than one hour wcllleua5832-64-98 06:10:00* Test Item Value Reference Range Interpretation Comments Aspartate Amino Transf (AST/SGOT) (test code = Aspartate Amino Transf (AST/SGOT)) 14 5-34 [facility]viewerum or plasma alanine aminotransferase measurement (enzymatic activity/volume)2019-07-24 06:10:00* Test Item Value Reference Range Interpretation Comments Alanine Aminotransferase (ALT/SGPT) (test code = 1742-6) 15 0-55 [facility]viewerum or plasma protein measurement (mass/volume)2019-07-24 06:10:00* Test Item Value Reference Range Interpretation Comments Total Protein (test code = 2885-2) 6.2 6.5-8.1 [facility]viewerum or plasma albumin measurement (mass/volume)2019-07-24 06:10:00* Test Item Value Reference Range Interpretation Comments Albumin (test code = 1751-7) 3.1 3.5-5.0 [facility] BudaPlasma globulin measurement (mass/volume) 2019-07-24 06:10:00* Test Item Value Reference Range Interpretation Comments Globulin (test code = 80474-0) 3.1 2.3-3.5 [facility]viewerum or plasma albumin/globulin mass drkik9063-29-40 06:10:00* Test Item Value Reference Range Interpretation Comments Albumin/Globulin Ratio (test code = 1759-0) 1.0 0.8-2.0 [facility]viewerum or plasma alkaline phosphatase measurement (enzymatic activity/volume)2019-07-24 06:10:00* Test Item Value Reference Range Interpretation Comments Alkaline Phosphatase (test code = 6768-6) 106 40-150 [facility] Longviewerum or plasma amylase measurement (enzymatic activity/volume)2019-07-24 06:10:00* Test Item Value Reference Range Interpretation Comments Amylase Level (test code = 1798-8) 36 25-125 [facility]viewerum or plasma lipase measurement (enzymatic activity/volume)2019-07-24 06:10:00* Test Item Value Reference Range Interpretation Comments Lipase (test code = 3040-3) < 4 8-78 [facility] BudaBlood leukocytes automated count (number/volume)2019-07-24 06:10:00* Test Item Value Reference Range Interpretation Comments White Blood Count (test code = 6690-2) 6.43 4.8-10.8 [facility] BudaBlood erythrocytes automated count (number/volume)2019-07-24 06:10:00* Test Item Value Reference Range Interpretation Comments Red Blood Count (test code = 789-8) 3.29 4.3-5.7 [facility] BudaBlood hemoglobin measurement (moles/volume)2019-07-24 06:10:00* Test Item Value Reference Range Interpretation Comments Hemoglobin (test code = 52682-9) 9.4 14.0-18.0 [facility] BudaAutomated blood hematocrit (volume fraction)2019-07-24 06:10:00* Test Item Value Reference Range Interpretation Comments Hematocrit (test code = 4544-3) 29.7 38.2-49.6 [facility] BudaAutomated erythrocyte mean corpuscular tkcgyg9895-61-07 06:10:00* Test Item Value Reference Range Interpretation Comments Mean Corpuscular Volume (test code = 787-2) 90.3 81-99 [facility] BudaAutomated erythrocyte mean corpuscular hemoglobin (mass per erythrocyte)2019-07-24 06:10:00* Test Item Value Reference Range Interpretation Comments Mean Corpuscular Hemoglobin (test code = 785-6) 28.6 28-32 [facility] BudaAutomated erythrocyte mean corpuscular hemoglobin concentration measurement (mass/volume)2019-07-24 06:10:00* Test Item Value Reference Range Interpretation Comments Mean Corpuscular Hemoglobin Concent (test code = 786-4) 31.6 31-35 [facility] BudaRDW MijNm-Ahb7384-19-26 06:10:00* Test Item Value Reference Range Interpretation Comments Red Cell Distribution Width (test code = 14347-0) 14.5 11.7 -14.4 [facility] BudaAutomated blood platelet count (count/volume)2019-07-24 06:10:00* Test Item Value Reference Range Interpretation Comments Platelet Count (test code = 777-3) 132 140-360 [facility] BudaAutomated blood segmented neutrophil count as percentage of total advvfbaubs5062-26-28 06:10:00* Test Item Value Reference Range Interpretation Comments Neutrophils (%) (Auto) (test code = 81816-4) 61.3 38.7-80.0 [facility] BudaAutomated blood lymphocyte count as percentage ot total ddxwegwhol0895-49-09 06:10:00* Test Item Value Reference Range Interpretation Comments Lymphocytes (%) (Auto) (test code = 736-9) 24.9 18.0-39.1 [facility] BudaAutomated blood monocyte count as percentage of total cxtmhsmrrj9542-61-32 06:10:00* Test Item Value Reference Range Interpretation Comments Monocytes (%) (Auto) (test code = 5905-5) 10.0 4.4-11.3 [facility] BudaAutomated blood eosinophil count as percentage of total cudldqakse1429-32-55 06:10:00* Test Item Value Reference Range Interpretation Comments Eosinophils (%) (Auto) (test code = 713-8) 2.6 0.0-6.0 [facility] BudaAutomated blood basophil count as percentage of total yqkgyprjao9960-01-72 06:10:00* Test Item Value Reference Range Interpretation Comments Basophils (%) (Auto) (test code = 706-2) 0.9 0.0-1.0 [facility] BudaFluoroscopic procedure less than one hour itgedgaf7787-70-64 06:10:00* Test Item Value Reference Range Interpretation Comments IM GRANULOCYTES % (test code = IM GRANULOCYTES %) 0.3 0.0- 1.0 [facility] BudaAutomated blood neutrophil count 2019-07-24 06:10:00* Test Item Value Reference Range Interpretation Comments Neutrophils # (Auto) (test code = 751-8) 3.9 2.1-6.9 [facility] BudaBlood lymphocytes count (number/volume) 2019-07-24 06:10:00* Test Item Value Reference Range Interpretation Comments Lymphocytes # (Auto) (test code = 01023-5) 1.6 1.0-3.2 [facility] BudaBlood monocytes automated count (number/volume)2019-07-24 06:10:00* Test Item Value Reference Range Interpretation Comments Monocytes # (Auto) (test code = 742-7) 0.6 0.2-0.8 [facility] BudaAutomated blood eosinophil count 2019-07-24 06:10:00* Test Item Value Reference Range Interpretation Comments Eosinophils # (Auto) (test code = 711-2) 0.2 0.0-0.4 [facility] BudaAutomated blood basophil count (count/volume)2019-07-24 06:10:00* Test Item Value Reference Range Interpretation Comments Basophils # (Auto) (test code = 704-7) 0.1 0.0-0.1 [facility] BudaFluoroscopic procedure less than one hour fjzaksxu0172-52-48 06:10:00* Test Item Value Reference Range Interpretation Comments Absolute Immature Granulocyte (auto (zeenat t code = Absolute Immature Granulocyte (auto) 0.02 0-0.1 [facility]viewerum or plasma sodium measurement (moles/volume)2019-07-24 06:10:00* Test Item Value Reference Range Interpretation Comments Sodium Level (test code = 2951-2) 136 136-145 [facility]viewerum or plasma potassium measurement (moles/volume)2019-07-24 06:10:00* Test Item Value Reference Range Interpretation Comments Potassium Level (test code = 2823-3) 3.7 3.5-5.1 [facility]viewerum or plasma chloride measurement (moles/volume)2019-07-24 06:10:00* Test Item Value Reference Range Interpretation Comments Chloride Level (test code = 2075-0) 106 98-107 [facility] Longviewerum or plasma carbon dioxide, total measurement (moles/volume)2019-07-24 06:10:00* Test Item Value Reference Range Interpretation Comments Carbon Dioxide Level (test code = 2028-9) 23 22-29 [facility] Longviewerum or plasma anion hpt1991-13-50 06:10:00* Test Item Value Reference Range Interpretation Comments Anion Gap (test code = 36800-9) 10.7 8-16 [facility] Longviewerum or plasma urea nitrogen measurement (mass/volume)2019-07-24 06:10:00* Test Item Value Reference Range Interpretation Comments Blood Urea Nitrogen (test code = 3094-0) 13 7-26 [facility] Longviewerum or plasma creatinine measurement (mass/volume)2019-07-24 06:10:00* Test Item Value Reference Range Interpretation Comments Creatinine (test code = 2160-0) 1.24 0.72-1.25 [facility] Longviewerum or plasma urea nitrogen/creatinine mass ryiia7509-33-56 06:10:00* Test Item Value Reference Range Interpretation Comments BUN/Creatinine Ratio (test code = 3097-3) 10 6-25 [facility] [facility] BudaEstimated glomerular filtration rate (GFR) qblsbcatdxubv5044-49-15 06:10:00* Test Item Value Reference Range Interpretation Comments Estimat Glomerular Filtration Rate (test code = 736535136) > 60 >60 Ranges were taken from the National Kidney Disease Education Program and the [facility] Kidney Foundation literature.Reference ranges:60 or greater: Qfgymj69-61 ( for 3 consecutive months): Chronic kidney disease 15 or less: Kidney failureBaylor Scott & [facility] – BudaGlucose ooaitsbnosp4852-50-34 06:10:00* Test Item Value Reference Range Interpretation Comments Glucose Level (test code = KCN7484) 148 74-118 [facility] Longviewerum or plasma calcium measurement (mass/volume)2019-07-24 06:10:00* Test Item Value Reference Range Interpretation Comments Calcium Level (test code = 81492-9) 8.6 8.4-10.2 [facility] Longviewerum or plasma total bilirubin measurement (mass/volume)2019-07-24 06:10:00* Test Item Value Reference Range Interpretation Comments Total Bilirubin (test code = 1975-2) 0.5 0.2-1.2 [facility] BudaFluoroscopic procedure less than one hour enwuyrfv7625-99-31 06:10:00* Test Item Value Reference Range Interpretation Comments Aspartate Amino Transf (AST/SGOT) (test code = Aspartate Amino Transf (AST/SGOT)) 14 5-34 [facility] Longviewerum or plasma alanine aminotransferase measurement (enzymatic activity/volume)2019-07-24 06:10:00* Test Item Value Reference Range Interpretation Comments Alanine Aminotransferase (ALT/SGPT) (test code = 1742-6) 15 0-55 [facility] Longviewerum or plasma protein measurement (mass/volume)2019-07-24 06:10:00* Test Item Value Reference Range Interpretation Comments Total Protein (test code = 2885-2) 6.2 6.5-8.1 [facility] Longviewerum or plasma albumin measurement (mass/volume)2019-07-24 06:10:00* Test Item Value Reference Range Interpretation Comments Albumin (test code = 1751-7) 3.1 3.5-5.0 [facility] BudaPlasma globulin measurement (mass/volume) 2019-07-24 06:10:00* Test Item Value Reference Range Interpretation Comments Globulin (test code = 55199-9) 3.1 2.3-3.5 [facility] Longviewerum or plasma albumin/globulin mass qlefo3307-62-31 06:10:00* Test Item Value Reference Range Interpretation Comments Albumin/Globulin Ratio (test code = 1759-0) 1.0 0.8-2.0 [facility] Longviewerum or plasma alkaline phosphatase measurement (enzymatic activity/volume)2019-07-24 06:10:00* Test Item Value Reference Range Interpretation Comments Alkaline Phosphatase (test code = 6768-6) 106 40-150 [facility] Longviewerum or plasma amylase measurement (enzymatic activity/volume)2019-07-24 06:10:00* Test Item Value Reference Range Interpretation Comments Amylase Level (test code = 1798-8) 36 25-125 [facility] Longviewerum or plasma lipase measurement (enzymatic activity/volume)2019-07-24 06:10:00* Test Item Value Reference Range Interpretation Comments Lipase (test code = 3040-3) < 4 8-78 [facility] BudaBlood leukocytes automated count (number/volume)2019-07-24 06:10:00* Test Item Value Reference Range Interpretation Comments White Blood Count (test code = 6690-2) 6.43 4.8-10.8 [facility] BudaBlood erythrocytes automated count (number/volume)2019-07-24 06:10:00* Test Item Value Reference Range Interpretation Comments Red Blood Count (test code = 789-8) 3.29 4.3-5.7 [facility] BudaBlood hemoglobin measurement (moles/volume)2019-07-24 06:10:00* Test Item Value Reference Range Interpretation Comments Hemoglobin (test code = 09487-2) 9.4 14.0-18.0 [facility] BudaAutomated blood hematocrit (volume fraction)2019-07-24 06:10:00* Test Item Value Reference Range Interpretation Comments Hematocrit (test code = 4544-3) 29.7 38.2-49.6 [facility] BudaAutomated erythrocyte mean corpuscular zfrhdl0908-05-52 06:10:00* Test Item Value Reference Range Interpretation Comments Mean Corpuscular Volume (test code = 787-2) 90.3 81-99 [facility] BudaAutomated erythrocyte mean corpuscular hemoglobin (mass per erythrocyte)2019-07-24 06:10:00* Test Item Value Reference Range Interpretation Comments Mean Corpuscular Hemoglobin (test code = 785-6) 28.6 28-32 [facility] BudaAutomated erythrocyte mean corpuscular hemoglobin concentration measurement (mass/volume)2019-07-24 06:10:00* Test Item Value Reference Range Interpretation Comments Mean Corpuscular Hemoglobin Concent (test code = 786-4) 31.6 31-35 [facility] BudaRDW KjxLy-Ibx6105-10-26 06:10:00* Test Item Value Reference Range Interpretation Comments Red Cell Distribution Width (test code = 27255-9) 14.5 11.7 -14.4 [facility] BudaAutomated blood platelet count (count/volume)2019-07-24 06:10:00* Test Item Value Reference Range Interpretation Comments Platelet Count (test code = 777-3) 132 140-360 [facility] BudaAutomated blood segmented neutrophil count as percentage of total jlbbagpsdk0900-31-99 06:10:00* Test Item Value Reference Range Interpretation Comments Neutrophils (%) (Auto) (test code = 33425-6) 61.3 38.7-80.0 [facility] BudaAutomated blood lymphocyte count as percentage ot total fewwqlzbol8114-95-49 06:10:00* Test Item Value Reference Range Interpretation Comments Lymphocytes (%) (Auto) (test code = 736-9) 24.9 18.0-39.1 [facility] BudaAutomated blood monocyte count as percentage of total igndnxrhsq4674-45-22 06:10:00* Test Item Value Reference Range Interpretation Comments Monocytes (%) (Auto) (test code = 5905-5) 10.0 4.4-11.3 [facility] BudaAutomated blood eosinophil count as percentage of total yeqpeqjzyb0343-84-64 06:10:00* Test Item Value Reference Range Interpretation Comments Eosinophils (%) (Auto) (test code = 713-8) 2.6 0.0-6.0 [facility] BudaAutomated blood basophil count as percentage of total pdurizjgon7523-05-94 06:10:00* Test Item Value Reference Range Interpretation Comments Basophils (%) (Auto) (test code = 706-2) 0.9 0.0-1.0 [facility] BudaFluoroscopic procedure less than one hour gfsmtgkz0247-26-17 06:10:00* Test Item Value Reference Range Interpretation Comments IM GRANULOCYTES % (test code = IM GRANULOCYTES %) 0.3 0.0- 1.0 [facility] BudaAutomated blood neutrophil count 2019-07-24 06:10:00* Test Item Value Reference Range Interpretation Comments Neutrophils # (Auto) (test code = 751-8) 3.9 2.1-6.9 [facility] BudaBlood lymphocytes count (number/volume) 2019-07-24 06:10:00* Test Item Value Reference Range Interpretation Comments Lymphocytes # (Auto) (test code = 81558-2) 1.6 1.0-3.2 [facility] BudaBlood monocytes automated count (number/volume)2019-07-24 06:10:00* Test Item Value Reference Range Interpretation Comments Monocytes # (Auto) (test code = 742-7) 0.6 0.2-0.8 [facility] BudaAutomated blood eosinophil count 2019-07-24 06:10:00* Test Item Value Reference Range Interpretation Comments Eosinophils # (Auto) (test code = 711-2) 0.2 0.0-0.4 [facility] BudaAutomated blood basophil count (count/volume)2019-07-24 06:10:00* Test Item Value Reference Range Interpretation Comments Basophils # (Auto) (test code = 704-7) 0.1 0.0-0.1 [facility] BudaFluoroscopic procedure less than one hour xtitbpke4510-48-79 06:10:00* Test Item Value Reference Range Interpretation Comments Absolute Immature Granulocyte (auto (zeenat t code = Absolute Immature Granulocyte (auto) 0.02 0-0.1 [facility] Longviewerum or plasma sodium measurement (moles/volume)2019-07-24 06:10:00* Test Item Value Reference Range Interpretation Comments Sodium Level (test code = 2951-2) 136 136-145 [facility] Longviewerum or plasma potassium measurement (moles/volume)2019-07-24 06:10:00* Test Item Value Reference Range Interpretation Comments Potassium Level (test code = 2823-3) 3.7 3.5-5.1 [facility] Longviewerum or plasma chloride measurement (moles/volume)2019-07-24 06:10:00* Test Item Value Reference Range Interpretation Comments Chloride Level (test code = 2075-0) 106 98-107 [facility] Longviewerum or plasma carbon dioxide, total measurement (moles/volume)2019-07-24 06:10:00* Test Item Value Reference Range Interpretation Comments Carbon Dioxide Level (test code = 2028-9) 23 22-29 [facility] Longviewerum or plasma anion mng4033-20-42 06:10:00* Test Item Value Reference Range Interpretation Comments Anion Gap (test code = 64578-9) 10.7 8-16 [facility] Longviewerum or plasma urea nitrogen measurement (mass/volume)2019-07-24 06:10:00* Test Item Value Reference Range Interpretation Comments Blood Urea Nitrogen (test code = 3094-0) 13 7-26 [facility] Longviewerum or plasma creatinine measurement (mass/volume)2019-07-24 06:10:00* Test Item Value Reference Range Interpretation Comments Creatinine (test code = 2160-0) 1.24 0.72-1.25 [facility] Longviewerum or plasma urea nitrogen/creatinine mass jipsc1985-72-96 06:10:00* Test Item Value Reference Range Interpretation Comments BUN/Creatinine Ratio (test code = 3097-3) 10 6-25 [facility] BudaEstimated glomerular filtration rate (GFR) halwsztftrldk3807-44-12 06:10:00* Test Item Value Reference Range Interpretation Comments Estimat Glomerular Filtration Rate (test code = 128244290) > 60 >60 Ranges were taken from the National Kidney Disease Education Program and the [facility] Kidney Foundation literature.Reference ranges:60 or greater: Mqjnoa48-78 ( for 3 consecutive months): Chronic kidney disease 15 or less: Kidney failureBaylor Scott & [facility] – BudaGlucose nbgekntwqnd2476-49-80 06:10:00* Test Item Value Reference Range Interpretation Comments Glucose Level (test code = OWX3444) 148 74-118 [facility] Longviewerum or plasma calcium measurement (mass/volume)2019-07-24 06:10:00* Test Item Value Reference Range Interpretation Comments Calcium Level (test code = 64165-5) 8.6 8.4-10.2 [facility] Longviewerum or plasma total bilirubin measurement (mass/volume)2019-07-24 06:10:00* Test Item Value Reference Range Interpretation Comments Total Bilirubin (test code = 1975-2) 0.5 0.2-1.2 [facility] BudaFluoroscopic procedure less than one hour lzunhwtf6579-12-38 06:10:00* Test Item Value Reference Range Interpretation Comments Aspartate Amino Transf (AST/SGOT) (test code = Aspartate Amino Transf (AST/SGOT)) 14 5-34 [facility] Longviewerum or plasma alanine aminotransferase measurement (enzymatic activity/volume)2019-07-24 06:10:00* Test Item Value Reference Range Interpretation Comments Alanine Aminotransferase (ALT/SGPT) (test code = 1742-6) 15 0-55 [facility]viewerum or plasma protein measurement (mass/volume)2019-07-24 06:10:00* Test Item Value Reference Range Interpretation Comments Total Protein (test code = 2885-2) 6.2 6.5-8.1 [facility] Longviewerum or plasma albumin measurement (mass/volume)2019-07-24 06:10:00* Test Item Value Reference Range Interpretation Comments Albumin (test code = 1751-7) 3.1 3.5-5.0 [facility] BudaPlasma globulin measurement (mass/volume) 2019-07-24 06:10:00* Test Item Value Reference Range Interpretation Comments Globulin (test code = 01406-2) 3.1 2.3-3.5 [facility] Longviewerum or plasma albumin/globulin mass fddnj9877-33-79 06:10:00* Test Item Value Reference Range Interpretation Comments Albumin/Globulin Ratio (test code = 1759-0) 1.0 0.8-2.0 [facility] Longviewerum or plasma alkaline phosphatase measurement (enzymatic activity/volume)2019-07-24 06:10:00* Test Item Value Reference Range Interpretation Comments Alkaline Phosphatase (test code = 6768-6) 106 40-150 [facility] Longviewerum or plasma amylase measurement (enzymatic activity/volume)2019-07-24 06:10:00* Test Item Value Reference Range Interpretation Comments Amylase Level (test code = 1798-8) 36 25-125 [facility] Longviewerum or plasma lipase measurement (enzymatic activity/volume)2019-07-24 06:10:00* Test Item Value Reference Range Interpretation Comments Lipase (test code = 3040-3) < 4 8-78 [facility] Longviewerum or plasma amylase measurement (enzymatic activity/volume)2019-07-24 06:10:00* Test Item Value Reference Range Interpretation Comments Amylase Level (test code = 1798-8) 36 25-125 [facility] Longviewerum or plasma lipase measurement (enzymatic activity/volume)2019-07-24 06:10:00* Test Item Value Reference Range Interpretation Comments Lipase (test code = 3040-3) < 4 8-78 [facility] Longviewerum or plasma amylase measurement (enzymatic activity/volume)2019-07-24 06:10:00* Test Item Value Reference Range Interpretation Comments Amylase Level (test code = 1798-8) 36 25-125 [facility] Longviewerum or plasma lipase measurement (enzymatic activity/volume)2019-07-24 06:10:00* Test Item Value Reference Range Interpretation Comments Lipase (test code = 3040-3) < 4 8-78 [facility] BudaFluoroscopic procedure less than one hour wqdohajs0470-86-32 12:20:00* Test Item Value Reference Range Interpretation Comments Hemoglobin A1c Percent (test code = Hemoglobin A1c Percent) 8.4 4.0-7.0 [facility] BudaFluoroscopic procedure less than one hour tviqndla1676-48-75 12:20:00* Test Item Value Reference Range Interpretation Comments Lactic Acid Level (test code = Lactic Acid Level) 0.8 0.5- 2.0 [facility] BudaFluoroscopic procedure less than one hour cydmigjd2735-86-93 12:20:00* Test Item Value Reference Range Interpretation Comments Hemoglobin A1c Percent (test code = Hemoglobin A1c Percent) 8.4 4.0-7.0 [facility] BudaFluoroscopic procedure less than one hour hjdtlhzc0742-98-75 12:20:00* Test Item Value Reference Range Interpretation Comments Lactic Acid Level (test code = Lactic Acid Level) 0.8 0.5- 2.0 [facility] BudaFluoroscopic procedure less than one hour huoxhlcs2276-20-13 12:20:00* Test Item Value Reference Range Interpretation Comments Hemoglobin A1c Percent (test code = Hemoglobin A1c Percent) 8.4 4.0-7.0 [facility] BudaFluoroscopic procedure less than one hour icddraqg9270-18-39 12:20:00* Test Item Value Reference Range Interpretation Comments Lactic Acid Level (test code = Lactic Acid Level) 0.8 0.5- 2.0 [facility] BudaFluoroscopic procedure less than one hour nunhfzng6370-93-42 12:20:00* Test Item Value Reference Range Interpretation Comments Hemoglobin A1c Percent (test code = Hemoglobin A1c Percent) 8.4 4.0-7.0 [facility] BudaFluoroscopic procedure less than one hour dwlufpxi0970-56-31 12:20:00* Test Item Value Reference Range Interpretation Comments Lactic Acid Level (test code = Lactic Acid Level) 0.8 0.5- 2.0 [facility] BudaFluoroscopic procedure less than one hour ymbwwowe2230-12-78 12:20:00* Test Item Value Reference Range Interpretation Comments Hemoglobin A1c Percent (test code = Hemoglobin A1c Percent) 8.4 4.0-7.0 [facility] BudaFluoroscopic procedure less than one hour ncsnctuz4440-35-74 12:20:00* Test Item Value Reference Range Interpretation Comments Lactic Acid Level (test code = Lactic Acid Level) 0.8 0.5- 2.0 [facility] BudaFluoroscopic procedure less than one hour hagplqxv3143-47-11 12:20:00* Test Item Value Reference Range Interpretation Comments Hemoglobin A1c Percent (test code = Hemoglobin A1c Percent) 8.4 4.0-7.0 [facility] BudaFluoroscopic procedure less than one hour wnrvkgrw8199-12-63 12:20:00* Test Item Value Reference Range Interpretation Comments Hemoglobin A1c Percent (test code = Hemoglobin A1c Percent) 8.4 4.0-7.0 [facility] BudaCT ABD/PEL WO XLZHFCJU-OMTW7496-68-25 06:46:00 [place] [address] Patient Name: BREE LINDSAY MR #: [id number] : 1975 Age/Sex: 43/M Req #: [id number] [facility] Physician: Ordered by: NEIL PEREZ MD Report #: [id number] Location: [facility] Room/Bed: Procedure: [id number] HOPD/CT ABD/PEL WO CONTRAST-HOPD Exam Date: 07/23/19 [...] COPY TO: NEIL PEREZ MD Bacterial blood vhvozmq8258-09-58 06:44:00* Test Item Value Reference Range Interpretation Comments Blood Culture (test code = 600-7) STAPHYLOCOCCUS SP COAG NEG [facility] blood pyigubs1947-15-07 06:44:00* Test Item Value Reference Range Interpretation Comments Blood Culture (test code = 600-7) STAPHYLOCOCCUS SP COAG NEG [facility] blood wcvxqch1512-78-12 06:44:00* Test Item Value Reference Range Interpretation Comments Blood Culture (test code = 600-7) STAPHYLOCOCCUS SP COAG NEG [facility] BudaBacterial blood yahwpyk2758-85-40 06:44:00* Test Item Value Reference Range Interpretation Comments Blood Culture (test code = 600-7) STAPHYLOCOCCUS SP COAG NEG [facility] ijceixx0126-24-55 06:44:00* Test Item Value Reference Range Interpretation Comments Blood Culture (test code = 600-7) STAPHYLOCOCCUS SP COAG NEG [facility]ere[facility] blood jcsvwsa5483-70-33 06:44:00* Test Item Value Reference Range Interpretation Comments Blood Culture (test code = 600-7) STAPHYLOCOCCUS SP COAG NEG [facility] BudaBacteria blood xuhzcyg2143-10-12 06:44:00* Test Item Value Reference Range Interpretation Comments Blood Culture (test code = 600-7) STAPHYLOCOCCUS SP COAG NEG [facility] BudaBanceria blood aeipucr2118-76-10 06:44:00* Test Item Value Reference Range Interpretation Comments Blood Culture (test code = 600-7) STAPHYLOCOCCUS SP COAG NEG [facility] diczrpg1735-78-01 06:44:00* Test Item Value Reference Range Interpretation Comments Blood Culture (test code = 600-7) STAPHYLOCOCCUS SP COAG NEG [facility] blood sotydna0031-11-50 06:44:00* Test Item Value Reference Range Interpretation Comments Blood Culture (test code = 600-7) STAPHYLOCOCCUS SP COAG NEG [facility] blood xqjyaez5161-92-70 06:44:00* Test Item Value Reference Range Interpretation Comments Blood Culture (test code = 600-7) STAPHYLOCOCCUS SP COAG NEG [facility] blood dwtiefs0883-45-39 06:44:00* Test Item Value Reference Range Interpretation Comments Blood Culture (test code = 600-7) STAPHYLOCOCCUS SP COAG NEG [facility] BudaC 1 VEW - HFRO2333-68-84 06:44:00 [place] [address] Patient Name: BREE LINDSAY MR #: [id number] : 1975 Age/Sex: 43/M Req #: [id number] Adm Physician: Ordered by: NEIL PEREZ MD Report #: [id number] Location: [facility] Room/Bed: Procedure: [id number] HOPD/CXR 1 VEW - HOPD Exam Date: [...] 07/23/19645 COPY TO: NEIL PEREZ MD Blood sojrbxq6756-82-71 06:05:00* Test Item Value Reference Range Interpretation Comments Blood Culture (test code = 52761518) NO GROWTH AFTER 5 DAYS, FINAL REPORT [facility] jolmggx9278-07-32 06:05:00* Test Item Value Reference Range Interpretation Comments Blood Culture (test code = 08799688) NO GROWTH AFTER 5 DAYS, [facility] ryuciex3956-76-41 06:05:00* Test Item Value Reference Range Interpretation Comments Blood Culture (test code = 66371541) NO GROWTH AFTER 5 DAYS, FINAL REPORT [facility] uplacou7002-04-23 06:05:00* Test Item Value Reference Range Interpretation Comments Blood Culture (test code = 01297780) NO GROWTH AFTER 5 DAYS, FINAL REPORT [facility] sjuobli4833-45-39 06:05:00* Test Item Value Reference Range Interpretation Comments Blood Culture (test code = 56489743) NO GROWTH AFTER 5 DAYS, FINAL REPORT [facility] BudaBlood hufuqhe9873-18-32 06:05:00* Test Item Value Reference Range Interpretation Comments Blood Culture (test code = 33629762) NO GROWTH AFTER 5 DAYS, FINAL REPORT [facility] BudaBedside Tobmadg1284-07-65 08:12:00* Test Item Value Reference Range Interpretation Comments Bedside Glucose (test code = 62873-3) 120 70-120 Meter ID: [id number] Longviewodium Level 2019-07-10 07:06:00* Test Item Value Reference Range Interpretation Comments Sodium Level (test code = 2951-2) 139 136-145 [facility] BudaPotassium Wgkua0193-33-41 07:06:00* Test Item Value Reference Range Interpretation Comments Potassium Level (test code = 2823-3) 3.3 3.5-5.1 L [facility] BudaChloride Nflec0483-77-29 07:06:00* Test Item Value Reference Range Interpretation Comments Chloride Level (test code = 2075-0) 102 98-107 [facility] BudaCarbon Dioxide Tobgt9166-92-20 07:06:00* Test Item Value Reference Range Interpretation Comments Carbon Dioxide Level (test code = 2028-9) 28 22-29 [facility] BudaAnion Chq6649-74-47 07:06:00* Test Item Value Reference Range Interpretation Comments Anion Gap (test code = 21407-4) 12.3 8-16 [facility] BudaBlood Urea Rphxzhza2393-53-68 07:06:00* Test Item Value Reference Range Interpretation Comments Blood Urea Nitrogen (test code = 3094-0) 31 7-26 H [facility] BudaCreatinine2020-04-12 07:06:00* Test Item Value Reference Range Interpretation Comments Creatinine (test code = 2160-0) 1.55 0.72-1.25 H [facility] BudaBUN/Creatinine Wfeal8335-57-96 07:06:00* Test Item Value Reference Range Interpretation Comments BUN/Creatinine Ratio (test code = 3097-3) 20 6-25 [facility] BudaEstimat Glomerular Filtration Rate 2019-07-10 07:06:00* Test Item Value Reference Range Interpretation Comments Estimat Glomerular Filtration Rate (test code = 825525563) 60 >60 Ranges were taken from the National Kidney Disease Education Program and the [facility] Kid[facility] Foundation literature.Reference ranges:60 or greater: Kbvuzc00-02 ( for 3 consecutive months): Chronic kidney disease 15 or less: Kidney failureBaylor [facility] & [facility] – BudaGlucose Icdrh1268-80-49 07:06:00* Test Item Value Reference Range Interpretation Comments Glucose Level (test code = PRI2480) 92 74-118 [facility] BudaCalcium Mkzlm2458-77-36 07:06:00* Test Item Value Reference Range Interpretation Comments Calcium Level (test code = 89685-7) 8.1 8.4-10.2 L [facility] BudaMagnesium Cdogh1811-97-86 06:53:00* Test Item Value Reference Range Interpretation Comments Magnesium Level (test code = 58692-7) 1.8 1.3-2.1 [facility] BudaWhite Blood Fsjhl8596-51-91 06:24:00* Test Item Value Reference Range Interpretation Comments White Blood Count (test code = 6690-2) 8.09 4.8-10.8 [facility] BudaRed Blood [id number] 06:24:00* Test Item Value Reference Range Interpretation Comments Red Blood Count (test code = 789-8) 3.66 4.3-5.7 L [facility]udaHemoglobin2020-04-12 06:24:00* Test Item Value Reference Range Interpretation Comments Hemoglobin (test code = 79678-3) 10.1 14.0-18.0 L [facility]udaHematocrit2020-04-12 06:24:00* Test Item Value Reference Range Interpretation Comments Hematocrit (test code = 4544-3) 32.4 38.2-49.6 L [facility] BudaMean Corpuscular [id number] 06:24:00* Test Item Value Reference Range Interpretation Comments Mean Corpuscular Volume (test code = 787-2) 88.5 81-99 [facility]udaMean Corpuscular [id number] 06:24:00* Test Item Value Reference Range Interpretation Comments Mean Corpuscular Hemoglobin (test code = 785-6) 27.6 28-32 L [facility]udaMean Corpuscular Hemoglobin Concent 2019-07-10 06:24:00* Test Item Value Reference Range Interpretation Comments Mean Corpuscular Hemoglobin Concent (test code = 786-4) 31.2 31-35 [facility] BudaRed Cell Distribution [id number] 06:24:00* Test Item Value Reference Range Interpretation Comments Red Cell Distribution Width (test code = 56957-4) 13.8 11.7 -14.4 [facility] BudaPlatelet [id number] 06:24:00* Test Item Value Reference Range Interpretation Comments Platelet Count (test code = 777-3) 191 140-360 [facility] BudaNeutrophils (%) (Auto)2019-07-10 06:24:00 * Test Item Value Reference Range Interpretation Comments Neutrophils (%) (Auto) (test code = 16524-6) 61.6 38.7-80.0 [facility] BudaLymphocytes (%) (Auto)2019-07-10 06:24:00 * Test Item Value Reference Range Interpretation Comments Lymphocytes (%) (Auto) (test code = 736-9) 26.7 18.0-39.1 [facility]udaMonocytes (%) (Auto)2019-07-10 06:24:00* Test Item Value Reference Range Interpretation Comments Monocytes (%) (Auto) (test code = 5905-5) 10.3 4.4-11.3 [facility]udaEosinophils (%) (Auto)2019-07-10 06:24:00 * Test Item Value Reference Range Interpretation Comments Eosinophils (%) (Auto) (test code = 713-8) 0.6 0.0-6.0 [facility]udaBasophils (%) (Auto)2019-07-10 06:24:00* Test Item Value Reference Range Interpretation Comments Basophils (%) (Auto) (test code = 706-2) 0.6 0.0-1.0 [facility] BudaIM GRANULOCYTES %2019-07-10 06:24:00* Test Item Value Reference Range Interpretation Comments IM GRANULOCYTES % (test code = IM GRANULOCYTES %) 0.2 0.0- 1.0 [facility]udaNeutrophils # (Auto)2019-07-10 06:24:00* Test Item Value Reference Range Interpretation Comments Neutrophils # (Auto) (test code = 751-8) 5.0 2.1-6.9 [facility] BudaLymphocytes # (Auto)2019-07-10 06:24:00* Test Item Value Reference Range Interpretation Comments Lymphocytes # (Auto) (test code = 16370-4) 2.2 1.0-3.2 [facility]udaMonocytes # (Auto)2019-07-10 06:24:00* Test Item Value Reference Range Interpretation Comments Monocytes # (Auto) (test code = 742-7) 0.8 0.2-0.8 [facility]udaEosinophils # (Auto)2019-07-10 06:24:00* Test Item Value Reference Range Interpretation Comments Eosinophils # (Auto) (test code = 711-2) 0.1 0.0-0.4 [facility]udaBasophils # (Auto)2019-07-10 06:24:00* Test Item Value Reference Range Interpretation Comments Basophils # (Auto) (test code = 704-7) 0.1 0.0-0.1 [facility] BudaAbsolute Immature Granulocyte (auto 2019-07-10 06:24:00* Test Item Value Reference Range Interpretation Comments Absolute Immature Granulocyte (auto (zeenat t code = Absolute Immature Granulocyte (auto) 0.02 0-0.1 [facility] or plasma magnesium measurement (mass/volume)2019-07-10 05:32:00* Test Item Value Reference Range Interpretation Comments Magnesium Level (test code = 09258-3) 1.8 1.3-2.1 [facility]viewerum or plasma magnesium measurement (mass/volume)2019-07-10 05:32:00* Test Item Value Reference Range Interpretation Comments Magnesium Level (test code = 10422-8) 1.8 1.3-2.1 [facility]viewerum or plasma magnesium measurement (mass/volume)2019-07-10 05:32:00* Test Item Value Reference Range Interpretation Comments Magnesium Level (test code = 53933-8) 1.8 1.3-2.1 [facility]viewerum or plasma magnesium measurement (mass/volume)2019-07-10 05:32:00* Test Item Value Reference Range Interpretation Comments Magnesium Level (test code = 29849-5) 1.8 1.3-2.1 [facility]viewerum or plasma magnesium measurement (mass/volume)2019-07-10 05:32:00* Test Item Value Reference Range Interpretation Comments Magnesium Level (test code = 09403-3) 1.8 1.3-2.1 [facility]viewerum or plasma magnesium measurement (mass/volume)2019-07-10 05:32:00* Test Item Value Reference Range Interpretation Comments Magnesium Level (test code = 50582-2) 1.8 1.3-2.1 [facility]viewerum or plasma magnesium measurement (mass/volume)2019-07-10 05:32:00* Test Item Value Reference Range Interpretation Comments Magnesium Level (test code = 53144-4) 1.8 1.3-2.1 [facility]viewerum or plasma magnesium measurement (mass/volume)2019-07-10 05:32:00* Test Item Value Reference Range Interpretation Comments Magnesium Level (test code = 14651-5) 1.8 1.3-2.1 [facility]viewerum or plasma magnesium measurement (mass/volume)2019-07-10 05:32:00* Test Item Value Reference Range Interpretation Comments Magnesium Level (test code = 57512-8) 1.8 1.3-2.1 [facility]viewerum or plasma magnesium measurement (mass/volume)2019-07-10 05:32:00* Test Item Value Reference Range Interpretation Comments Magnesium Level (test code = 40261-6) 1.8 1.3-2.1 [facility]viewerum or plasma magnesium measurement (mass/volume)2019-07-10 05:32:00* Test Item Value Reference Range Interpretation Comments Magnesium Level (test code = 07703-9) 1.8 1.3-2.1 [facility]viewerum or plasma magnesium measurement (mass/volume)2019-07-10 05:32:00* Test Item Value Reference Range Interpretation Comments Magnesium Level (test code = 32583-8) 1.8 1.3-2.1 [facility] BudaGLUBED2020-02-10 08:55:00* Test Item Value Reference Range Interpretation Comments GLUBED (test code = GLUBED) 122 mg/dL 74-106 H Performed by certified pick up operator at [facility] [id number] 08:43:00* Test Item Value Reference Range Interpretation Comments GLUBED (test code = GLUBED) 140 mg/dL 74-106 H Performed by certified pick up operator at [facility] - XR SHOULDER 1 V [id number] 13:41:00 FAX: Jg Astudillo MD [phone] [place]: St: [facility] FAX: Riley Zavala [phone] Name: DAISHABREE Mendoza [facility] : 1975 Age/S: 43/M [address] [place] [address] Unit #: [id number] Loc: [place] X [address] Phys: Jg Astudillo MD Acct: [id number] Dis Date: Status: REG CLI PHONE #: [phone] Exam Date: 03/02/2019 1333 FAX #: [phone] Reason: PICC PLACEMENT EXAMS: CPT CODE: [id number] XR SHOULDER 1 [place] [address] 1 VIEW LEFT SHOULDER HISTORY: PICC line pl acement.. Left upper extremity PICC line present. Catheter tip pr ojects over the level of the inferior 3rd of the SVC. END IMPRESSION SL: [id number] at 1341 Reported and sig lizette by: Yusuf Burgos M.D. CC: Jg Astudillo MD; Zak Beckman DO Technologist: RT Rashida(R) Trnscrd Date/Time/By: 03/02/2019 (6615) : By: Jaclyn Orig Print D/T: S: 03/02/2019 (5517) PAGE 1 Signed Report [id number] 08:06:00* Test Item Value Reference Range Interpretation Comments GLUBED (test code = GLUBED) 224 mg/dL 74-106 H Performed by certified pick up operator at [facility] [id number] 22:57:00* Test Item Value Reference Range Interpretation Comments GLUBED (test code = GLUBED) 62 mg/dL 74-106 L Performed by certified pick up operator at [facility] [id number] 18:14:00* Test Item Value Reference Range Interpretation Comments GLUBED (test code = GLUBED) 158 mg/dL 74-106 H Performed by certified pick up operator at [facility] [id number] 11:43:00* Test Item Value Reference Range Interpretation Comments GLUBED (test code = GLUBED) 123 mg/dL 74-106 H Performed by certified pick up operator at [facility] BASIC METABOLIC [id number] 11:04:00* Test Item Value Reference Range Interpretation [...] CA) 8.5 mg/dL 8.5-10.1 N BASIC METABOLIC [id number] 10:55:00* Test Item Value Reference Range Interpretation [...] code = CA) mg/dL 8.5-10.1 CBC W/AUTO [id number] 10:13:00* Test Item Value Reference Range Interpretation [...] code = NRBC#) 0.00 K/mm3 0.0-0.1 N [id number] 08:19:00* Test Item Value Reference Range Interpretation Comments GLUBED (test code = GLUBED) 81 mg/dL 74-106 N Performed by certified pick up operator at [facility] [id number] 22:30:00* Test Item Value Reference Range Interpretation Comments GLUBED (test code = GLUBED) 243 mg/dL 74-106 H Performed by certified pick up operator at [facility] [id number] 17:17:00* Test Item Value Reference Range Interpretation Comments GLUBED (test code = GLUBED) 91 mg/dL 74-106 N Performed by certified pick up operator at [facility] BLOOD UREA [id number] 13:49:00* Test Item Value Reference Range Interpretation Comments BLOOD UREA NITROGEN (test code = BUN) 8 mg/dL 7-18 N 2 PHELBS GONE UP AND TRIED TO DRAW BLOOD PT SAID COME BACKINFORMED PAIGE LIU E481Coleen [facility] 02/19/19 1037 [id number] 13:49:00* Test Item Value Reference Range Interpretation Comments CREATININE (test code = CREAT) 0.90 mg/dL 0.7-1.3 N 2 PHELBS GONE UP AND TRIED TO DRAW BLOOD PT SAID COME BACKINFORMED PAIGE LIU E481Coleen [facility] 02/19/19 1037 CBC W/AUTO [id number] 13:02:00* Test Item Value Reference Range Interpretation [...] TO COME BACK LATER NOTIFIED PAIGE LUCERO.KP211/23/ [id number] 11:50:00* Test Item Value Reference Range Interpretation Comments GLUBED (test code = GLUBED) 147 mg/dL 74-106 H Performed by certified pick up operator at [facility] [id number] 10:37:00* Test Item Value Reference Range Interpretation Comments GLUBED (test code = GLUBED) 97 mg/dL 74-106 N Performed by certified pick up operator at [facility] [id number] 21:43:00* Test Item Value Reference Range Interpretation Comments GLUBED (test code = GLUBED) 162 mg/dL 74-106 H Performed by certified pick up operator at [facility] [id number] 16:06:00* Test Item Value Reference Range Interpretation Comments GLUBED (test code = GLUBED) 98 mg/dL 74-106 N Performed by certified pick up operator at [facility] - XR CHEST 1 [id number] 14:36:00 FAX: Olegario Diaz MD [phone] [place]: B St: ADM FAX: Iris Liao [phone] FAX: Riley Zavala DO [phone] Name: BREE LINDSAY [facility] : 1975 Age/S: 43/M [address] [facility] Unit [facility]: [id number] Loc: V.3070 [place] [address] Phys: Iris Liao NP Acct: [id number] Dis Date: Status: ADM IN ONE #: [phone] Exam Date: 02/18/2019 1339 FAX #: [phone] Reason: PICC TIP CONFIRMATION EXAMS: CPT CODE: [id number] XR CHEST 1 V 50513 REASON FOR EXAM: PICC TIP CONFIRMATION Exam Order Date: 02/18/2019 12:37 PM Ordering M.DDon: Iris Liao NP PROCEDURE: - XR CHEST [...] new finding from the prior exam. Location: [facility] Electronically Signed by Mulugeta Espinoza MD on at 1436 Reported and signed by: Mulugeta Espinoza MD CC: Olegario Diaz MD; Iris Liao NP; Riley Beckman DO Technologist: Ngozi LYON(R); Lucie Martinez(R) Trnscrd Date/Time/By: 01/29 (1439) : By: [email or web address] Orig Print D/T: S: 02/18/2019 (8823) PAGE 1 Signed Report [id number] 12:20:00* Test Item Value Reference Range Interpretation Comments GLUBED (test code = GLUBED) 141 mg/dL 74-106 H Performed by certified pick up operator at [facility] [id number] 07:15:00* Test Item Value Reference Range Interpretation Comments GLUBED (test code = GLUBED) 129 mg/dL 74-106 H Performed by certified pick up operator at [facility] [id number] 00:21:00* Test Item Value Reference Range Interpretation Comments GLUBED (test code = GLUBED) 166 mg/dL 74-106 H Performed by certified pick up operator at [facility] [id number] 20:50:00* Test Item Value Reference Range Interpretation Comments GLUBED (test code = GLUBED) 194 mg/dL 74-106 H Performed by certified pick up operator at [facility] [id number] 18:19:00* Test Item Value Reference Range Interpretation Comments VANCOMYCIN (test code = VANCO) 25.9 UG/ML 5.0-45.0 N [id number] 16:41:00* Test Item Value Reference Range Interpretation Comments GLUBED (test code = GLUBED) 223 mg/dL 74-106 H Performed by certified pick up operator at [facility] [id number] 13:22:00* Test Item Value Reference Range Interpretation Comments GLUBED (test code = GLUBED) 95 mg/dL 74-106 N Performed by certified pick up operator at [facility] [id number] 13:22:00* Test Item Value Reference Range Interpretation Comments GLUBED (test code = GLUBED) 61 mg/dL 74-106 L Performed by certified pick up operator at [facility] [id number] 13:22:00* Test Item Value Reference Range Interpretation Comments GLUBED (test code = GLUBED) 32 mg/dL 74-106 LL Test performed as P.O.C. by nursing staff.Performed by certified pick up operator at [facility] [id number] 13:22:00* Test Item Value Reference Range Interpretation Comments GLUBED (test code = GLUBED) 28 mg/dL 74-106 LL Test performed as P.O.C. by nursing staff.[facility]~ [id number] 11:50:00* Test Item Value Reference Range Interpretation Comments GLUBED (test code = GLUBED) 104 mg/dL 74-106 N Performed by certified pick up operator at [facility] CBC W/MANUAL [id number] 09:27:00* Test Item Value Reference Range Interpretation [...] code = IMMAT) 0 % 0-0 N [id number] 07:51:00* Test Item Value Reference Range Interpretation Comments GLUBED (test code = GLUBED) 244 mg/dL 74-106 H Performed by certified pick up operator at [facility] BASIC METABOLIC [id number] 07:23:00* Test Item Value Reference Range Interpretation [...] CA) 7.9 mg/dL 8.5-10.1 L BASIC METABOLIC [id number] 07:13:00* Test Item Value Reference Range Interpretation [...] code = CA) mg/dL 8.5-10.1 CBC W/MANUAL [id number] 07:10:00* Test Item Value Reference Range Interpretation [...] MORPHOLOGY (test code = PLTMORPH) CBC W/MANUAL [id number] 07:10:00* Test Item Value Reference Range Interpretation [...] MORPHOLOGY (test code = PLTMORPH) CBC W/MANUAL [id number] 07:10:00* Test Item Value Reference Range Interpretation [...] MORPHOLOGY (test code = PLTMORPH) CBC W/MANUAL [id number] 07:09:00* Test Item Value Reference Range Interpretation [...] MORPHOLOGY (test code = PLTMORPH) CBC W/MANUAL [id number] 07:09:00* Test Item Value Reference Range Interpretation [...] MORPHOLOGY (test code = PLTMORPH) SED RATE [id number] 21:42:00* Test Item Value Reference Range Interpretation Comments SED RATE MARISSAREN (test code = SEDW) 76 mm/hr 0-15 H SED [id number] 21:42:00* Test Item Value Reference Range Interpretation Comments SED RATE (test code = SEDW) 76 mm/hr 0-15 H WINTROBE METHOD: NORMAL RANGE FOR MEN: 0-9 MM/HR WOMAN: 0-20 MM/HR [id number] 20:54:00* Test Item Value Reference Range Interpretation Comments GLUBED (test code = GLUBED) 345 mg/dL 74-106 H Performed by certified pick up operator at [facility] [id number] 16:36:00* Test Item Value Reference Range Interpretation Comments GLUBED (test code = GLUBED) 37 mg/dL 74-106 LL Performed by certified pick up operator at [facility] [id number] 16:30:00* Test Item Value Reference Range Interpretation Comments GLUBED (test code = GLUBED) 94 mg/dL 74-106 N Performed by certified pick up operator at [facility] [id number] 12:04:00* Test Item Value Reference Range Interpretation Comments GLUBED (test code = GLUBED) 236 mg/dL 74-106 H Performed by certified pick up operator at [facility] CBC W/MANUAL [id number] 08:49:00* Test Item Value Reference Range Interpretation [...] IMMAT) 0 % 0-0 N BASIC METABOLIC [id number] 08:29:00* Test Item Value Reference Range Interpretation [...] CA) 7.9 mg/dL 8.5-10.1 L CBC W/MANUAL [id number] 08:09:00* Test Item Value Reference Range Interpretation [...] MORPHOLOGY (test code = PLTMORPH) CBC W/MANUAL [id number] 08:09:00* Test Item Value Reference Range Interpretation [...] MORPHOLOGY (test code = PLTMORPH) CBC W/MANUAL [id number] 08:09:00* Test Item Value Reference Range Interpretation [...] MORPHOLOGY (test code = PLTMORPH) CBC W/MANUAL [id number] 08:09:00* Test Item Value Reference Range Interpretation [...] MORPHOLOGY (test code = PLTMORPH) CBC W/MANUAL [id number] 08:09:00* Test Item Value Reference Range Interpretation [...] PLTEST) PLATELET MORPHOLOGY (test code = PLTMORPH) [id number] 07:33:00* Test Item Value Reference Range Interpretation Comments GLUBED (test code = GLUBED) 315 mg/dL 74-106 H Performed by certified pick up operator at [facility] [id number] 19:56:00* Test Item Value Reference Range Interpretation Comments GLUBED (test code = GLUBED) 90 mg/dL 74-106 N Performed by certified pick up operator at [facility] [id number] 19:07:00* Test Item Value Reference Range Interpretation Comments GLUBED (test code = GLUBED) 107 mg/dL 74-106 H Performed by certified pick up operator at [facility] [id number] 19:07:00* Test Item Value Reference Range Interpretation Comments GLUBED (test code = GLUBED) 49 mg/dL 74-106 LL [facility]~ [id number] 17:50:00* Test Item Value Reference Range Interpretation Comments POTASSIUM (test code = K) 3.0 mmol/L 3.5-5.1 L RE SULT VERIFIED BY REPEAT ANALYSIS [id number] 17:08:00* Test Item Value Reference Range Interpretation Comments GLUBED (test code = GLUBED) 66 mg/dL 74-106 L Performed by certified pick up operator at [facility] [id number] 16:57:00* Test Item Value Reference Range Interpretation Comments GLUBED (test code = GLUBED) 76 mg/dL 74-106 N Performed by certified pick up operator at [facility] [id number] 13:11:00* Test Item Value Reference Range Interpretation Comments POTASSIUM (test code = K) 5.2 mmol/L 3.5-5.1 H [id number] 11:49:00* Test Item Value Reference Range Interpretation Comments GLUBED (test code = GLUBED) 81 mg/dL 74-106 N Performed by certified pick up operator at [facility] [id number] 09:39:00* Test Item Value Reference Range Interpretation Comments GLUBED (test code = GLUBED) 78 mg/dL 74-106 N Performed by certified pick up operator at [facility] - MRI LOW EXT W/O CONT [id number] 09:36:00 FAX: Olegario Diaz MD [phone] [place]: B St: ADM FAX: Heavenly KerrM [phone] FAX: Riley Zavala DO [phone] Name: BREE LINDSAY [facility] : 1975 Age/S: 43/M [address] [facility] Unit #: [id number] Loc: [address] [address] Phys: Heavenly Null DPM Acct: [id number] Dis Date: Status: ADM IN ONE #: [phone] Exam Date: 02/15/2019 0859 FAX #: [phone] Reason: cellulitis EXAMS: CPT CODE: [id number] [place] W/[place] [address] HISTORY: Cellu litis TECHNIQUE: Sagittal T1, sagittal [...] By: [email or web address] Orig Print D/T: S: 02/15/2019 (0666) PAGE 1 Signed Report [id number] 07:22:00* Test Item Value Reference Range Interpretation Comments GLUBED (test code = GLUBED) 57 mg/dL 74-106 L Performed by certified pick up operator at [facility] BASIC METABOLIC [id number] 05:15:00* Test Item Value Reference Range Interpretation Comments SODIUM (test code = NA) 136 mmol/L 136-145 N POTASSIUM (test code = K) 2.7 mmol/L 3.5-5.1 Re sults called to [id number] by DOT 02/15/19 0515Critical results verified and [...] CA) 8.3 mg/dL 8.5-10.1 L C REACTIVE [id number] 04:21:00* Test Item Value Reference Range Interpretation Comments C REACTIVE PROTEIN (test code = CRP) 27.10 mg/dL 0-0.3 H CBC W/MANUAL [id number] 04:05:00* Test Item Value Reference Range Interpretation [...] IMMAT) 0 % 0-0 N CBC W/MANUAL [id number] 03:30:00* Test Item Value Reference Range Interpretation [...] PLTEST) PLATELET MORPHOLOGY (test code = PLTMORPH) [id number] 20:26:00* Test Item Value Reference Range Interpretation Comments GLUBED (test code = GLUBED) 151 mg/dL 74-106 H Performed by certified pick up operator at [facility] [id number] 17:12:00* Test Item Value Reference Range Interpretation Comments GLUBED (test code = GLUBED) 124 mg/dL 74-106 H Performed by certified pick up operator at [facility] [id number] 17:07:00* Test Item Value Reference Range Interpretation Comments GLUBED (test code = GLUBED) 81 mg/dL 74-106 N Performed by certified pick up operator at [facility] [id number] 12:13:00* Test Item Value Reference Range Interpretation Comments GLUBED (test code = GLUBED) 95 mg/dL 74-106 N Performed by certified pick up operator at [facility] CBC W/MANUAL [id number] 08:15:00* Test Item Value Reference Range Interpretation [...] code = IMMAT) 0 % 0-0 N [id number] 07:18:00* Test Item Value Reference Range Interpretation Comments GLUBED (test code = GLUBED) 195 mg/dL 74-106 H Performed by certified pick up operator at [facility] BASIC METABOLIC [id number] 07:16:00* Test Item Value Reference Range Interpretation [...] code = CA) 8.4 mg/dL 8.5-10.1 L [id number] 07:16:00* Test Item Value Reference Range Interpretation Comments MAGNESIUM (test code = MAG) 1.7 mg/dL 1.8-2.4 L CBC W/MANUAL [id number] 06:58:00* Test Item Value Reference Range Interpretation [...] MORPHOLOGY (test code = PLTMORPH) CBC W/MANUAL [id number] 06:58:00* Test Item Value Reference Range Interpretation [...] MORPHOLOGY (test code = PLTMORPH) CBC W/MANUAL [id number] 06:58:00* Test Item Value Reference Range Interpretation [...] MORPHOLOGY (test code = PLTMORPH) CBC W/MANUAL [id number] 06:58:00* Test Item Value Reference Range Interpretation [...] MORPHOLOGY (test code = PLTMORPH) CBC W/MANUAL [id number] 06:58:00* Test Item Value Reference Range Interpretation [...] MORPHOLOGY (test code = PLTMORPH) BASIC METABOLIC [id number] 06:56:00* Test Item Value Reference Range Interpretation [...] CALCIUM (test code = CA) mg/dL 8.5-10.1 [id number] 06:56:00* Test Item Value Reference Range Interpretation Comments MAGNESIUM (test code = MAG) mg/dL 1.8-2.4 [id number] 20:42:00* Test Item Value Reference Range Interpretation Comments GLUBED (test code = GLUBED) 261 mg/dL 74-106 H Performed by certified pick up operator at [facility] CBC W/MANUAL [id number] 10:55:00* Test Item Value Reference Range Interpretation [...] MORPHOLOGY (test code = PLTMORPH) NORMAL URINALYSIS [id number] 10:38:00* Test Item Value Reference Range Interpretation [...] Clean Catch- XR FOOT 3 + V [id number] 10:33:00 Name: BREE LINDSAY [facility] : 1975 Age/S:43 /M [address] [facility] Unit#:[id number] Loc: [place] [address] Phys: Chandan Cage MD Dis Date: PHONE #: [phone] Status: REG ER FAX #: [phone] Exam Date: 02/13/2019 Re ason: left foot swelling EXAMS: CPT CODE: [id number] XR FOOT 3 + V LT [address] CLINICAL HISTORY: left foot swelling TECHNIQUE: AP, [...] but no acute underlying bony injury. Location: [facility] at 1033 Reported and signed by: Mulugeta Espinoza MD CC: Tracy Cage MD; Riley Beckman DO Technologist: Stone Sadler RT(R)(CT) Trnsc rpt Data: 02/13/2019 (1033) t.SDR.RR31 Orig Print D/T: S : 02/13/2019 (1036) PAGE 1 Signed Report LACTIC [id number] 10:28:00* Test Item Value Reference Range Interpretation Comments LACTIC ACID (test code = LACT) 1.6 MMOL/L 0.4-1.9 N BASIC METABOLIC [id number] 10:28:00* Test Item Value Reference Range Interpretation [...] CA) 8.7 mg/dL 8.4-10.2 N HEPATIC FUNCTION [id number] 10:28:00* Test Item Value Reference Range Interpretation [...] code = ALKP) 120 U/L 38-126 N [id number] 10:28:00* Test Item Value Reference Range Interpretation Comments TROPONIN-I (test code = TROPI) <0.015 ng/mL 0.00-0.056 N URINALYSIS [id number] 10:20:00* Test Item Value Reference Range Interpretation [...] HPF NONE Urine Source? Clean CatchBASIC METABOLIC [id number] 10:19:00* Test Item Value Reference Range Interpretation [...] CA) 8.7 mg/dL 8.4-10.2 N HEPATIC FUNCTION [id number] 10:19:00* Test Item Value Reference Range Interpretation [...] TOTAL (test code = ALKP) IUnit/L 45-117 [id number] 10:19:00* Test Item Value Reference Range Interpretation Comments TROPONIN-I (test code = TROPI) ng/mL 0-0.045 CBC W/MANUAL [id number] 10:13:00* Test Item Value Reference Range Interpretation [...] MORPHOLOGY (test code = PLTMORPH) CBC W/MANUAL [id number] 10:02:00* Test Item Value Reference Range Interpretation [...] MORPHOLOGY (test code = PLTMORPH) CBC W/MANUAL [id number] 10:02:00* Test Item Value Reference Range Interpretation [...] MORPHOLOGY (test code = PLTMORPH) CBC W/MANUAL [id number] 10:02:00* Test Item Value Reference Range Interpretation [...] MORPHOLOGY (test code = PLTMORPH) CBC W/MANUAL [id number] 10:02:00* Test Item Value Reference Range Interpretation [...] code = PLTMORPH) - XR CHEST 1 [id number] 09:56:00 Name: BREE LINDSAY [facility] : 1975 Age/S:43 /M [address] [facility] Unit#:[id number] Loc: [place] [address] Phys: Tracy Cage MD Dis Date: PHONE #: [phone] Status: REG ER FAX #: [phone] Exam Date: 02/13/2019 Reason: CODE SEPSIS EXAMS: CPT CODE: [id number] XR CHEST 1 V 25808 REASON FOR EXAM: CODE SEPSIS Exam Order [...] cholecystectomy. IMPRESSION: No acute cardiopulmonary process. Location: [facility] Elect ronically Signed by Mulugeta Espinoza MD on 02/13/2019 at 0956 Reported and signed by: Mulugeta Espinoza MD CC: Tracy Cage MD; Keeley Beckman DO Technologist: Stone Sadler RT(R)(CT) Trnscrpt Data: 02/13/2019 (0956) tABIELR.RR31 Orig Print D/T: S: 02/13/2019 (0983) PAGE 1 Signed Report [id number] 16:17:00* Test Item Value Reference Range Interpretation Comments GLUBED (test code = GLUBED) 187 mg/dL 74-106 H Performed by certified pick up operator at [facility] [id number] 11:57:00* Test Item Value Reference Range Interpretation Comments GLUBED (test code = GLUBED) 147 mg/dL 74-106 H Performed by certified pick up operator at [facility] [id number] 07:34:00* Test Item Value Reference Range Interpretation Comments GLUBED (test code = GLUBED) 110 mg/dL 74-106 H Performed by certified pick up operator at [facility] CBC W/MANUAL [id number] 05:59:00* Test Item Value Reference Range Interpretation [...] IMMAT) 0 % 0-0 N BASIC METABOLIC [id number] 05:25:00* Test Item Value Reference Range Interpretation Comments SODIUM (test code = NA) 138 mmol/L 136-145 N POTASSIUM (test code = K) 2.7 mmol/L 3.5-5.1 Norma calderon called to cfo4976 by [place] 02/12/19 0525Critical results verified and [...] CA) 8.4 mg/dL 8.5-10.1 L CBC W/MANUAL [id number] 05:04:00* Test Item Value Reference Range Interpretation [...] MORPHOLOGY (test code = PLTMORPH) CBC W/MANUAL [id number] 05:04:00* Test Item Value Reference Range Interpretation [...] MORPHOLOGY (test code = PLTMORPH) CBC W/MANUAL [id number] 05:04:00* Test Item Value Reference Range Interpretation [...] MORPHOLOGY (test code = PLTMORPH) CBC W/MANUAL [id number] 05:04:00* Test Item Value Reference Range Interpretation [...] MORPHOLOGY (test code = PLTMORPH) CBC W/MANUAL [id number] 05:04:00* Test Item Value Reference Range Interpretation [...] interpreted taking into account the patients history. [id number] 19:42:00* Test Item Value Reference Range Interpretation Comments GLUBED (test code = GLUBED) 131 mg/dL 74-106 H Performed by certified pick up operator at [facility] LACTIC [id number] 19:38:00* Test Item Value Reference Range Interpretation Comments LACTIC ACID (test code = LACT) 0.7 mmol/L 0.4-1.9 N [id number] 18:44:00* Test Item Value Reference Range Interpretation Comments GLUBED (test code = GLUBED) 129 mg/dL 74-106 H Performed by certified pick up operator at [facility] [id number] 16:34:00* Test Item Value Reference Range Interpretation Comments GLUBED (test code = GLUBED) 66 mg/dL 74-106 L Performed by certified pick up operator at [facility] [id number] 12:07:00* Test Item Value Reference Range Interpretation Comments GLUBED (test code = GLUBED) 285 mg/dL 74-106 H Performed by certified pick up operator at [facility] - XR CHEST 1 [id number] 08:53:00 FAX: Faith Cook MD [phone] [place]: St: ADM FAX: Riley Zavala DO [phone] Name: BREE LINDSAY [facility] : 1975 Age/S: 43/M [address] [facility] Unit #: [id number] Loc: V.[address] [place] [address] Phys: Faith Roy MD Acct: [id number] Dis Date: Status: ADM IN PHONE #: [phone] Exam Date: 02/11/2019829 FAX #: [phone] Reason: Leukocytosis EXAMS: CPT CODE: [id number] XR CHEST 1 V 18364 HISTORY: Leukocytosis. COMPARISON: January 12, 2018. Location: [facility]. No acute infiltrates, effusion or congestion is noted. Mild cardiomegaly. IMPRESSION: No acute infiltrates, effusion or congestion. at 0853 Reported and signed by: Alexandr Pacheco M.D. CC: Faith Roy MD; Riley Beckman DO Technologist: BERNABE Diez Trnscrd Date/Time/By: 02/11/2019 (0853) : By: [email or web address] Orig Print D/T: S: 02/11/2019 (0860) PAGE 1 Signed Report GLUBED 2019-02-11 07:52:00* Test Item Value Reference Range Interpretation Comments GLUBED (test code = GLUBED) 293 mg/dL 74-106 H Performed by certified pick up operator at [facility] CBC W/MANUAL [id number] 06:45:00* Test Item Value Reference Range Interpretation [...] IMMAT) 0 % 0-0 N BASIC METABOLIC [id number] 06:37:00* Test Item Value Reference Range Interpretation [...] CA) 8.6 mg/dL 8.5-10.1 N BASIC METABOLIC [id number] 06:31:00* Test Item Value Reference Range Interpretation [...] code = CA) mg/dL 8.5-10.1 CBC W/MANUAL [id number] 06:18:00* Test Item Value Reference Range Interpretation [...] MORPHOLOGY (test code = PLTMORPH) CBC W/MANUAL [id number] 06:18:00* Test Item Value Reference Range Interpretation [...] MORPHOLOGY (test code = PLTMORPH) CBC W/MANUAL [id number] 06:18:00* Test Item Value Reference Range Interpretation [...] MORPHOLOGY (test code = PLTMORPH) CBC W/MANUAL [id number] 06:18:00* Test Item Value Reference Range Interpretation [...] MORPHOLOGY (test code = PLTMORPH) CBC W/MANUAL [id number] 06:18:00* Test Item Value Reference Range Interpretation [...] PLATELET MORPHOLOGY (test code = PLTMORPH) URINALYSIS [id number] 02:01:00* Test Item Value Reference Range Interpretation [...] BE COLLECTED BY NURSEDRUGS OF ABUSE SCREEN [id number] 02:01:00* Test Item Value Reference Range Interpretation [...] Source? VoidedSAMPLE TO BE COLLECTED BY NURSEURINALYSIS [id number] 01:45:00* Test Item Value Reference Range Interpretation [...] BE COLLECTED BY NURSEDRUGS OF ABUSE SCREEN [id number] 01:45:00* Test Item Value Reference Range Interpretation [...] 2143Urine Source? VoidedSAMPLE TO BE COLLECTED BY [id number] 23:31:00* Test Item Value Reference Range Interpretation Comments GLUBED (test code = GLUBED) 223 mg/dL 74-106 H Performed by certified pick up operator at [facility] [id number] 18:09:00* Test Item Value Reference Range Interpretation Comments GLUBED (test code = GLUBED) 201 mg/dL 74-106 H Performed by certified pick up operator at [facility] [id number] 11:27:00* Test Item Value Reference Range Interpretation Comments GLUBED (test code = GLUBED) 291 mg/dL 74-106 H Performed by certified pick up operator at [facility] [id number] 08:25:00* Test Item Value Reference Range Interpretation Comments GLUBED (test code = GLUBED) 288 mg/dL 74-106 H Performed by certified pick up operator at [facility] - XR ABDOMEN AP 1 [id number] 08:01:00 FAX: Bobby Self MD [place]: B St: ADM FAX: Riley Zavala [phone] Name: BREE LINDSAY [facility] : 1975 Age/S: 43/M [address] [facility] Unit #: [id number] Loc: V.[address] [place] [address] Phys: Bobby Self MD Acct: [id number] Dis Date: Status: ADM IN PHONE #: [phone] Exam Date: 02/10/2019 0805 FAX #: [phone] Reason: abdominal pain nausea and vomiting EXAMS: CPT CODE: [id number] XR ABDOMEN AP 1 V 44597 HISTORY: abdominal pain nausea and vomiting TECHNIQUE: [...] Bobby Self MD; Riley Beckman DO Technologist: SHANTE GUIDO) Trnscrd Date/Time/By: 02/10/2019 (0801) : By: [email or web address] Dimitry g Print D/T: S: 02/10/2019 (4615) PAGE 1 Signed Report PROCALCITONIN (PCT) 2019-02-10 [...] into account the patients history. BASIC METABOLIC [id number] 00:47:00* Test Item Value Reference Range Interpretation [...] CA) 9.1 mg/dL 8.5-10.1 N HEPATIC FUNCTION [id number] 00:47:00* Test Item Value Reference Range Interpretation [...] reference range due to change in reagent. [id number] 00:47:00* Test Item Value Reference Range Interpretation Comments LIPASE (test code = LIP) < 10 U/L 73.0-393.0 L CBC W/O [id number] 00:11:00* Test Item Value Reference Range Interpretation [...] code = MPV) 9.7 fL 6.7-11.0 N [id number] 07:24:00* Test Item Value Reference Range Interpretation Comments GLUBED (test code = GLUBED) 269 mg/dL 74-106 H Performed by certified pick up operator at [facility] [id number] 20:19:00* Test Item Value Reference Range Interpretation Comments GLUBED (test code = GLUBED) 199 mg/dL 74-106 H Performed by certified pick up operator at [facility] [id number] 16:56:00* Test Item Value Reference Range Interpretation Comments GLUBED (test code = GLUBED) 153 mg/dL 74-106 H Performed by certified pick up operator at [facility] [id number] 11:42:00* Test Item Value Reference Range Interpretation Comments GLUBED (test code = GLUBED) 231 mg/dL 74-106 H Performed by certified pick up operator at [facility] [id number] 08:17:00* Test Item Value Reference Range Interpretation Comments GLUBED (test code = GLUBED) 160 mg/dL 74-106 H Performed by certified pick up operator at [facility] CBC W/AUTO [id number] 06:43:00* Test Item Value Reference Range Interpretation [...] NRBC#) 0.00 K/mm3 0.0-0.1 N BASIC METABOLIC [id number] 06:43:00* Test Item Value Reference Range Interpretation [...] CA) 8.8 mg/dL 8.5-10.1 N BASIC METABOLIC [id number] 06:26:00* Test Item Value Reference Range Interpretation [...] (test code = CA) mg/dL 8.5-10.1 URINALYSIS [id number] 23:07:00* Test Item Value Reference Range Interpretation [...] Urine Source? Clean CatchDRUGS OF ABUSE SCREEN [id number] 23:07:00* Test Item Value Reference Range Interpretation [...] NEGATIVE <300 ng/mL Urine Source? Clean CatchURINALYSIS [id number] 22:44:00* Test Item Value Reference Range Interpretation [...] Urine Source? Clean CatchDRUGS OF ABUSE SCREEN [id number] 22:44:00* Test Item Value Reference Range Interpretation [...] <300 ng/mL Urine Source? Clean CatchBASIC METABOLIC [id number] 18:12:00* Test Item Value Reference Range Interpretation [...] CA) 10.0 mg/dL 8.5-10.1 N HEPATIC FUNCTION [id number] 18:12:00* Test Item Value Reference Range Interpretation [...] reference range due to change in reagent. [id number] 18:12:00* Test Item Value Reference Range Interpretation Comments LIPASE (test code = LIP) < 10 U/L 73.0-393.0 L BASIC METABOLIC [id number] 18:04:00* Test Item Value Reference Range Interpretation [...] code = CA) mg/dL 8.5-10.1 HEPATIC FUNCTION [id number] 18:04:00* Test Item Value Reference Range Interpretation [...] TOTAL (test code = ALKP) IUnit/L 45-117 [id number] 18:04:00* Test Item Value Reference Range Interpretation Comments LIPASE (test code = LIP) U/L 73.0-393.0 CBC W/O [id number] 18:00:00* Test Item Value Reference Range Interpretation [...] code = MPV) 10.1 fL 6.7-11.0 N [id number] 17:11:00* Test Item Value Reference Range Interpretation Comments GLUBED (test code = GLUBED) 108 mg/dL 74-106 H Performed by certified pick up operator at [facility] [id number] 14:49:00 RUN DATE: 12/21/18 [facility] PAGE 1 RUN TIME: 1449 Specimen Inqui ry RUN USER: INTERFACE PATIENT: BREE LINDSAY ACCT #: [id number] LOC: [facility] U #: [id number] AGE/SX: 43/M ROOM: [facility] RE12/16/18REG DR: Olegario Diaz MD : 75 BED: A DIS: 12/19/18 STATUS: DIS IN TLOC: SPEC #: [id number] RECD: 12/20/18 STATUS: SHAHRAM REQ #: [id number] HUY: 12/18/18- DR: Sav Coffey MD ENTERED: 12/20/18 SP TYPE: GALLBLADD OTHR DR: Levi Natarajan i, MD, Shao-Chun DOORDERED: GROSS COPIES TO: Levi Lakhani MD [address], [address] [place], [place] [address] Sav Coffey MD [address] [place] [address] [place] [address] [place] [address] MARKERS: ABNORMAL TISSUE, GALLBL ADDER PROCEDURES: GROSS (12/21/18-1158) TISSUES: GALLBLADDER, NOS CLINICAL HISTORY COLLECTION DATE: 12/18/18 CHOLECYSTITIS FIN AL DIAGNOSIS Gallbladder, cholecystectomy: PATCHY MILD CHRONIC ACALCUL OUS CHOLECYSTITIS NEGATIVE FOR MALIGNANCY RRB/sm A 18937 CONTINUED ON NEXT PAGE RUN DATE : 12/21/18 [facility] PAGE 2 RUN TIME: 1449 Specimen Inquiry RUN USER: INTERFACE SPEC #: [id number] PATIENT: BREE LINDSAY #[id number] (Continued) MACROSCOPIC The specimen is r eceived [...] thickness. No foc al lesions are identified. Detonator Assembler tissue is submitted in a single violeta sette. GROSS PERFORMED AT [facility] [address] [place] [address] [phone] MICROSCOPIC All of the stains, including any controls performed, st ain appropriately. MICROSCOPIC PERFORMED AT [facility] [address] [place] [address] [phone] PERFORMING SITE Diagnosis performed at: [facility] [address] [place] [address] Signed ORLIN Irvin ON FILE Dino Patton MD 12/21/18 1449 END OF REPORT GLUBED 2018-12-19 11:45:00* Test Item Value Reference Range Interpretation Comments GLUBED (test code = GLUBED) 238 mg/dL 74-106 H Performed by certified pick up operator at [facility] BASIC METABOLIC [id number] 08:28:00* Test Item Value Reference Range Interpretation [...] code = CA) 8.2 mg/dL 8.5-10.1 L [id number] 08:28:00* Test Item Value Reference Range Interpretation Comments MAGNESIUM (test code = MAG) 1.5 mg/dL 1.8-2.4 L BASIC METABOLIC [id number] 08:21:00* Test Item Value Reference Range Interpretation [...] CALCIUM (test code = CA) mg/dL 8.5-10.1 [id number] 08:21:00* Test Item Value Reference Range Interpretation Comments MAGNESIUM (test code = MAG) mg/dL 1.8-2.4 CBC W/AUTO [id number] 07:56:00* Test Item Value Reference Range Interpretation [...] DIFF REQUIRED (test code = MDIFF) NO [id number] 07:38:00* Test Item Value Reference Range Interpretation Comments GLUBED (test code = GLUBED) 277 mg/dL 74-106 H Performed by certified pick up operator at [facility] [id number] 20:34:00* Test Item Value Reference Range Interpretation Comments GLUBED (test code = GLUBED) 165 mg/dL 74-106 H Performed by certified pick up operator at [facility] [id number] 19:18:00* Test Item Value Reference Range Interpretation Comments GLUBED (test code = GLUBED) 203 mg/dL 74-106 H Performed by certified pick up operator at [facility] BASIC METABOLIC [id number] 11:47:00* Test Item Value Reference Range Interpretation [...] mg/dL 8.5-10.1 L PT IN SURGERY PAIGE QOI7868 V.LAB.KP2 12/18/18 3246DBOWZD4763-90-12 11:42:00* Test Item Value Reference Range Interpretation Comments GLUBED (test code = GLUBED) 360 mg/dL 74-106 H Performed by certified pick up operator at [facility] BASIC METABOLIC [id number] 11:41:00* Test Item Value Reference Range Interpretation [...] CA) mg/dL 8.5-10.1 PT IN SURGERY RN DMI0403 V.LAB.KP2 12/18/18 0926CBC W/AUTO [id number] 11:11:00* Test Item Value Reference Range Interpretation [...] = MDIFF) NO PT IN SURGERY RN CLR2776 V.LAB.KP2 12/18/18 [id number] 03:55:00* Test Item Value Reference Range Interpretation Comments GLUBED (test code = GLUBED) 269 mg/dL 74-106 H Performed by certified pick up operator at [facility] [id number] 23:58:00* Test Item Value Reference Range Interpretation Comments GLUBED (test code = GLUBED) 233 mg/dL 74-106 H Performed by certified pick up operator at [facility] [id number] 09:16:00* Test Item Value Reference Range Interpretation Comments GLUBED (test code = GLUBED) 179 mg/dL 74-106 H Performed by certified pick up operator at [facility] BASIC METABOLIC [id number] 06:40:00* Test Item Value Reference Range Interpretation Comments SODIUM (test code = NA) 141 mmol/L 136-145 N POTASSIUM (test code = K) 2.8 mmol/L 3.5-5.1 LL Re sults called to IKR6856 by V.LAB.WJC 12/17/18 0639Critical results verified and [...] code = CA) 8.3 mg/dL 8.5-10.1 L [id number] 06:40:00* Test Item Value Reference Range Interpretation Comments MAGNESIUM (test code = MAG) 1.6 mg/dL 1.8-2.4 L B-TYPE NATRIURETIC [id number] 06:34:00* Test Item Value Reference Range Interpretation Comments B-TYPE NATRIURETIC PEPTIDE (test code = BNP) 128.51 pgram/mL 0-100 H CBC W/AUTO [id number] 05:33:00* Test Item Value Reference Range Interpretation [...] code = NRBC#) 0.00 K/mm3 0.0-0.1 N [id number] 02:55:00* Test Item Value Reference Range Interpretation Comments GLUBED (test code = GLUBED) 102 mg/dL 74-106 N Performed by certified pick up operator at [facility] [id number] 21:18:00* Test Item Value Reference Range Interpretation Comments GLUBED (test code = GLUBED) 224 mg/dL 74-106 H Performed by certified pick up operator at [facility] [id number] 16:43:00* Test Item Value Reference Range Interpretation Comments GLUBED (test code = GLUBED) 158 mg/dL 74-106 H Performed by certified pick up operator at [facility] DRUGS OF ABUSE SCREEN [id number] 14:45:00* Test Item Value Reference Range Interpretation [...] NEGATIVE <300 ng/mL DRUGS OF ABUSE SCREEN [id number] 14:24:00* Test Item Value Reference Range Interpretation [...] ng/mL - HEPA IMAG INCL GB W [id number] 14:14:00 FAX: Leia Kendrick MSN [place]: St: ADM FAX: Bobby Self MD FAX: Felecia Riley Beckman DO [phone] Name: BREE LINDSAY [facility] : 1975 Age/S: 43/M [address] [facility] Unit #: [id number] Loc: V.[address] [place] [address] Phys: Leia Kendrick MSN Acct: [id number] Dis Date: Status: ADM IN [facility] #: [phone] Exam Date: 12/16/2018 1412 FAX #: [phone] Reason: recurrent n/v EXAMS: CPT CODE: [id number] HE PA IMAG INCL GB W PHA 17232 HISTORY: recur rent n/v EXAM: NUCLEAR MEDICINE [...] DO Technologist: ESAU ASHRAF Trnscrd Date/Time/By: 12/16/2018 (1414) : By: [email or web address] 1 Orig Print D/T: S: 12/16/2018 (9419) PAGE 1 Signed Report GLUBED 2018-12-16 11:12:00* Test Item Value Reference Range Interpretation Comments GLUBED (test code = GLUBED) 133 mg/dL 74-106 H Performed by certified pick up operator at [facility] - US ABDOMEN [id number] 10:25:00 Name: BREE LINDSAY [facility] : 1975 Age/S: 43 / M [address] Unit #: [id number] Loc: [place] [address] Phys: Leia Kendrick Acct: [id number] Dis Date: Status: ADM IN PHONE #: [phone] Exam Date: 12/16/2018 0940 FAX #: [phone] Reason: n/v EXAMS: CPT CODE: [id number] US ABDOMEN COMPLETE 83945 REASON FOR EXAM: n/v EXAM ORDER DATE: [...] 1 Signed Report (CONTINUED) Name: BREE LINDSAY [facility] : 1975 Age/S: 43 / M [address] Unit #: [id number] Loc: Rui turc[place], [place] [address] Phys: Leia Kendrick MSN Acct: [id number] Dis Date: Status: AD M IN PHONE #: [phone] Exam Date: 12/16 FAX #: [phone] Reason: n/v EXAMS: CPT CODE: [id number] US ABDOMEN COMPLETE 76 700 <Continued> Left [...] MD; Riley Beckman DO Technologist: NOEMY OLVERA RT(R),MS Trnscb Date/Time: 12/16/2018 (1025) t.SDR.RR31 Orig Print D/T: S: 12/16/2018 (1028) Probe: PAGE 2 Signed Report [id number] 07:04:00* Test Item Value Reference Range Interpretation Comments GLUBED (test code = GLUBED) 177 mg/dL 74-106 H Performed by certified pick up operator at [facility] URINALYSIS [id number] 00:25:00* Test Item Value Reference Range Interpretation [...] FEW A Urine Source? Clean CatchBASIC METABOLIC [id number] 00:22:00* Test Item Value Reference Range Interpretation [...] CA) 8.8 mg/dL 8.5-10.1 N HEPATIC FUNCTION [id number] 00:22:00* Test Item Value Reference Range Interpretation [...] reference range due to change in reagent. [id number] 00:22:00* Test Item Value Reference Range Interpretation Comments LIPASE (test code = LIP) < 10 U/L 73.0-393.0 L [id number] 00:22:00* Test Item Value Reference Range Interpretation Comments TROPONIN-I (test code = TROPI) <0.015 ng/mL 0-0.045 N BASIC METABOLIC [id number] 00:12:00* Test Item Value Reference Range Interpretation [...] code = CA) mg/dL 8.5-10.1 HEPATIC FUNCTION [id number] 00:12:00* Test Item Value Reference Range Interpretation [...] TOTAL (test code = ALKP) IUnit/L 45-117 [id number] 00:12:00* Test Item Value Reference Range Interpretation Comments LIPASE (test code = LIP) U/L 73.0-393.0 [id number] 00:12:00* Test Item Value Reference Range Interpretation Comments TROPONIN-I (test code = TROPI) ng/mL 0-0.045 CBC W/O [id number] 00:06:00* Test Item Value Reference Range Interpretation [...] MPV) 10.2 fL 6.7-11.0 N BASIC METABOLIC [id number] 08:09:00* Test Item Value Reference Range Interpretation [...] CA) 9.0 mg/dL 8.5-10.1 N HEPATIC FUNCTION [id number] 08:09:00* Test Item Value Reference Range Interpretation [...] reference range due to change in reagent. [id number] 08:09:00* Test Item Value Reference Range Interpretation Comments LIPASE (test code = LIP) < 10 U/L 73.0-393.0 L [id number] 08:09:00* Test Item Value Reference Range Interpretation Comments TROPONIN-I (test code = TROPI) <0.015 ng/mL 0-0.045 N BASIC METABOLIC [id number] 07:52:00* Test Item Value Reference Range Interpretation [...] code = CA) mg/dL 8.5-10.1 HEPATIC FUNCTION [id number] 07:52:00* Test Item Value Reference Range Interpretation [...] TOTAL (test code = ALKP) IUnit/L 45-117 [id number] 07:52:00* Test Item Value Reference Range Interpretation Comments LIPASE (test code = LIP) U/L 73.0-393.0 [id number] 07:52:00* Test Item Value Reference Range Interpretation Comments TROPONIN-I (test code = TROPI) ng/mL 0-0.045 CBC W/O PEIX2173-06-16 07:40:00* Test Item Value Reference Range Interpretation [...] = MPV) 10.5 fL 6.7-11.0 N POC-Glucose [id number] 17:19:00* Test Item Value Reference Range Interpretation Comments POC-Glucose Meter (test code = 1538) 266 mg/dL 70-110 H TESTED AT [place] [id number] [facility] [address] Lab Interpretation (test code = 79115-5) [facility] [id number] 17:19:00* Test Item Value Reference Range Interpretation Comments POC-GLUCOSE METER (BEAKER) (test code = 1538) 266 mg/dL 70-110 H TESTED AT [place] [id number] [facility] [address] ECG 12 [id number] 14:27:26Interface, External Ris In - 12/14/2018 2:27 PM CDTVentricular Rate 78 BPMAtrial Rate 78 BPMP-R Interval 168 msQRS Duration 80 msQ-T Interval 350 msQTC Calculation(Bazett) 399 msP [place] 52 degreesR [place] -14 degreesT [place] 35 degreesNormal sinus rhythmNormal ECGNo previous ECGs availableConfirmed by MD MEGGAN, MARCELINO ([id number]) on 12/14/2018 2:27:24 [facility] [id number] 12:17:00* Test Item Value Reference Range Interpretation Comments POC-GLUCOSE METER (BEAKER) (test code = 1538) 240 mg/dL 70-110 H TESTED AT [facility] [address] [facility] [address] POCT-GLUCOSE [id number] 08:12:00* Test Item Value Reference Range Interpretation Comments POC-GLUCOSE METER (BEAKER) (test code = 1538) 184 mg/dL 70-110 H TESTED AT [place] [id number] [facility] [address] Basic metabolic [id number] 06:18:00* Test Item Value Reference Range Interpretation [...] mg/dL 70-105 H Calcium (test code = 31653-3) 8.7 mg/dL 8.4-10.2 EGFR (test code = 15649-7) 87 mL/min/1.73 sq m ESTIMATED GFR IS NOT ACCURATE CREATININE CLEARANCE IN PREDICTING GLOMERULAR FILTRATION RATE. ESTIMATED GFR IS NOT APPLICABLE FOR DIALYSIS PATIENTS. Lab Interpretation (test code = 77966-1) [facility]normal [facility] 06:18:[facility]* Test Item Value Reference Range Interpretation Comments Magnesium (test code = 39488-0) 1.6 mg/dL 1.6-2.6 Lab Interpretation (test code = 66310-2) Normal [facility] 06:18:00* Test Item Value Reference Range Interpretation Comments Phosphorus (test code = 2777-1) 2.2 mg/dL 2.3-4.7 L Lab Interpretation (test code = 35720-4) Abnormal [facility]OS[facility]ORUS2019-09-17 06:18:00* Test Item Value Reference Range Interpretation Comments PHOSPHORUS (BEAKER) (test code = 604) 2.2 mg/dL 2.3-4.7 L [id number] 06:18:00* Test Item Value Reference Range Interpretation Comments MAGNESIUM (BEAKER) (test code = 627) 1.6 mg/dL 1.6-2.6 BASIC METABOLIC [id number] 06:18:00* Test Item Value Reference Range Interpretation [...] PATIENTS. CBC with platelet count + automated [id number] 06:16:00* Test Item Value Reference Range Interpretation [...] clinical correlation required. MPV (test code = 67483-0) 10.4 fL 9.4-12.4 nRBC (test code = [...] % 0-1 Lab Interpretation (test code = 41526-2) Abnormal [facility] W/PLT COUNT & AUTO RVMGLICLUWGY4760-03-41 06:16:00* Test Item Value Reference Range Interpretation [...] code = 2801) 0 % 0-1 POCT-GLUCOSE [id number] 21:15:00* Test Item Value Reference Range Interpretation Comments POC-GLUCOSE METER (BEAKER) (test code = 1538) 307 mg/dL 70-110 H Notified RN or MD Patient refused repeat test/TESTED AT [facility] [address] [facility] [address] Hemoglobin [id number] 19:48:00* Test Item Value Reference Range Interpretation Comments Hemoglobin A1C (test code = 4548-4) 8.4 % 4.3-6.1 H Lab Interpretation (test code = 16410-3) Abnormal [facility] ValleyHEMOGLOBIN [id number] 19:48:00* Test Item Value Reference Range Interpretation Comments HEMOGLOBIN A1C (BEAKER) (test code = 368) 8.4 % 4.3-6.1 H Lipid [id number] 16:17:00* Test Item Value Reference Range Interpretation Comments Triglycerides (test code = 2571-8) 101 mg/dL Cholesterol (test code = 2093-3) 151 mg/dL HDL (test code = 2085-9) 38 mg/dL LDL Calculated (test code = 74628-8) 93 mg/dL BESS (test code = BESS) Triglyceride Reference Range : Low Risk <150 Borderline 150-199 High Risk 200-499 Very High Risk >=500 Cholesterol Reference Range: Low Risk <200 Borderline 200-239 High Risk >240 HDL Cholesterol Reference Range: Low Risk >=60 High Risk <40 LDL Cholesterol Reference Range: Optimal <100 Near Optimal 100-129 Borderline 130-159 High 160-189 Very High >=190 [facility] ValleyHepatic function pgwgj4508-09-28 16:17:00* Test Item Value Reference Range Interpretation Comments Protein, Total (test code = 2885-2) 6.9 6.0- 8.3 gm/dL Albumin (test code = 67725-3) 3.9 g/dL 3.5-5 Total Bilirubin (test code = 1975-2) 0.5 mg/dL 0.2-1.2 Bilirubin, Direct (test code = 1968-7) 0.2 mg/dL 0.1-0.5 Alkaline Phosphatase (test code = 6768-6) 80 U/L 40-150 AST (test code = 1920-8) 18 U/L 5-34 ALT (test code = 1742-6) 15 U/L 6-55 Lab Interpretation (test code = 26947-8) Normal [facility] ValleyLIPID [id number] 16:17:00* Test Item Value Reference Range Interpretation [...] High 160-189 Very High >=190 BASIC METABOLIC [id number] 16:17:00* Test Item Value Reference Range Interpretation [...] NOT APPLICABLE FOR DIALYSIS PATIENTS. HEPATIC FUNCTION [id number] 16:17:00* Test Item Value Reference Range Interpretation [...] U/L 6-55 CBC W/PLT COUNT & AUTO [id number] 16:07:00* Test Item Value Reference Range Interpretation [...] code = 2801) 0 % 0-1 POCT-GLUCOSE [id number] 16:01:00* Test Item Value Reference Range Interpretation Comments POC-GLUCOSE METER (BEAKER) (test code = 1538) 265 mg/dL 70-110 H TESTED AT [facility] [address] [facility] [address] POCT-GLUCOSE [id number] 12:34:00* Test Item Value Reference Range Interpretation Comments POC-GLUCOSE METER (BEAKER) (test code = 1538) 271 mg/dL 70-110 H TESTED AT [address] [address] Magnesium Rdmgj9289-27-56 18:51:00* Test Item Value Reference Range Interpretation Comments Magnesium Level (test code = 71215-2) 1.8 1.3-2.1 [facility]2019-09-15 18:51:00* Test Item Value Reference Range Interpretation Comments Lipase (test code = 3040-3) < 4 8-78 [facility] Dppsv1544-20-06 18:51:00* Test Item Value Reference Range Interpretation Comments Magnesium Level (test code = 10752-9) 1.8 1.3-2.1 [facility] 18:51:00* Test Item Value Reference Range Interpretation Comments Lipase (test code = 3040-3) < 4 8-78 L [facility] [id number] 18:51:00* Test Item Value Reference Range Interpretation Comments Magnesium Level (test code = 79288-0) 1.8 1.3-2.1 [facility]2019-09-15 18:51:00* Test Item Value Reference Range Interpretation Comments Lipase (test code = 3040-3) < 4 8-78 L [facility]udaLip[facility]2019-09-15 18:51:00* Test Item Value Reference Range Interpretation Comments Lipase (test code = 3040-3) < 4 8-78 L [facility] Ogfikmn7037-25-29 20:52:00* Test Item Value Reference Range Interpretation Comments Blood Culture (test code = 74059896) NO GROWTH AFTER 5 DAYS, FINAL REPORT [facility] Aimljyo9700-25-03 20:52:00* Test Item Value Reference Range Interpretation Comments Blood Culture (test code = 92762821) NO GROWTH AFTER 5 DAYS, FINAL REPORT [facility] Iatyfvf3828-00-28 20:52:00* Test Item Value Reference Range Interpretation Comments Blood Culture (test code = 76901260) NO GROWTH AFTER 5 DAYS, FINAL REPORT [facility] Tkwxmmk1477-81-33 20:52:00* Test Item Value Reference Range Interpretation Comments Blood Culture (test code = 61648359) NO GROWTH AFTER 5 DAYS, FINAL REPORT [facility] Kbhrwze5261-07-22 15:19:00* Test Item Value Reference Range Interpretation Comments Bedside Glucose (test code = 17090-1) 261 70-120 H Meter ID: [id number] Glucose 2018-11-25 15:19:00* Test Item Value Reference Range Interpretation Comments Bedside Glucose (test code = 43307-3) 261 70-120 H Meter ID: [id number] [facility] [place] Glucose 2018-11-25 15:19:00* Test Item Value Reference Range Interpretation Comments Bedside Glucose (test code = 56529-6) 261 70-120 H Meter ID: [id number] [facility] Glucose 2018-11-25 15:19:00* Test Item Value Reference Range Interpretation Comments Bedside Glucose (test code = 75942-3) 261 70-120 H Meter ID: [id number] Scott & [facility] – BudaWhite Blood Count 2018-11-25 06:12:00* Test Item Value Reference Range Interpretation Comments White Blood Count (test code = 6690-2) 10.09 4.8-10.8 [facility]udaRed Blood [id number] 06:12:00* Test Item Value Reference Range Interpretation Comments Red Blood Count (test code = 789-8) 3.20 4.3-5.7 L [facility] BudaHemoglobin2019-08-29 06:12:00* Test Item Value Reference Range Interpretation Comments Hemoglobin (test code = 54330-7) 9.0 14.0-18.0 L [facility] BudaHematocrit2019-08-29 06:12:00* Test Item Value Reference Range Interpretation Comments Hematocrit (test code = 4544-3) 28.1 38.2-49.6 L [facility] BudaMean Corpuscular Bwcnie7219-38-83 06:12:00* Test Item Value Reference Range Interpretation Comments Mean Corpuscular Volume (test code = 787-2) 87.8 81-99 [facility]udaMean Corpuscular Vefqcmuhvk2193-21-12 06:12:00* Test Item Value Reference Range Interpretation Comments Mean Corpuscular Hemoglobin (test code = 785-6) 28.1 28-32 [facility]udaMean Corpuscular Hemoglobin Concent 2018-11-25 06:12:00* Test Item Value Reference Range Interpretation Comments Mean Corpuscular Hemoglobin Concent (test code = 786-4) 32.0 31-35 [facility] BudaRed Cell Distribution Hdspo3784-11-57 06:12:00* Test Item Value Reference Range Interpretation Comments Red Cell Distribution Width (test code = 10246-3) 13.7 11.7 -14.4 [facility] BudaPlatelet Hfzjy0619-13-46 06:12:00* Test Item Value Reference Range Interpretation Comments Platelet Count (test code = 777-3) 185 140-360 [facility] BudaNeutrophils (%) (Auto)2018-11-25 06:12:00 * Test Item Value Reference Range Interpretation Comments Neutrophils (%) (Auto) (test code = 62187-4) 60.5 38.7-80.0 [facility] BudaLymphocytes (%) (Auto)2018-11-25 06:12:00 * Test Item Value Reference Range Interpretation Comments Lymphocytes (%) (Auto) (test code = 736-9) 24.7 18.0-39.1 [facility]udaMonocytes (%) (Auto)2018-11-25 06:12:00* Test Item Value Reference Range Interpretation Comments Monocytes (%) (Auto) (test code = 5905-5) 12.2 4.4-11.3 H [facility]udaEosinophils (%) (Auto)2018-11-25 06:12:00 * Test Item Value Reference Range Interpretation Comments Eosinophils (%) (Auto) (test code = 713-8) 2.0 0.0-6.0 [facility]udaBasophils (%) (Auto)2018-11-25 06:12:00* Test Item Value Reference Range Interpretation Comments Basophils (%) (Auto) (test code = 706-2) 0.5 0.0-1.0 [facility] BudaIM GRANULOCYTES %2018-11-25 06:12:00* Test Item Value Reference Range Interpretation Comments IM GRANULOCYTES % (test code = IM GRANULOCYTES %) 0.1 0.0- 1.0 [facility] BudaNeutrophils # (Auto)2018-11-25 06:12:00* Test Item Value Reference Range Interpretation Comments Neutrophils # (Auto) (test code = 751-8) 6.1 2.1-6.9 [facility]udaLymphocytes # (Auto)2018-11-25 06:12:00* Test Item Value Reference Range Interpretation Comments Lymphocytes # (Auto) (test code = 90720-4) 2.5 1.0-3.2 [facility]udaMonocytes # (Auto)2018-11-25 06:12:00* Test Item Value Reference Range Interpretation Comments Monocytes # (Auto) (test code = 742-7) 1.2 0.2-0.8 H [facility]udaEosinophils # (Auto)2018-11-25 06:12:00* Test Item Value Reference Range Interpretation Comments Eosinophils # (Auto) (test code = 711-2) 0.2 0.0-0.4 [facility]udaBasophils # (Auto)2018-11-25 06:12:00* Test Item Value Reference Range Interpretation Comments Basophils # (Auto) (test code = 704-7) 0.1 0.0-0.1 [facility] BudaAbsolute Immature Granulocyte (auto 2018-11-25 06:12:00* Test Item Value Reference Range Interpretation Comments Absolute Immature Granulocyte (auto (zeenat t code = Absolute Immature Granulocyte (auto) 0.01 0-0.1 [facility] BudaWhite Blood [id number] 06:12:00* Test Item Value Reference Range Interpretation Comments White Blood Count (test code = 6690-2) 10.09 4.8-10.8 [facility] BudaRed Blood Hyhhe0404-12-67 06:12:00* Test Item Value Reference Range Interpretation Comments Red Blood Count (test code = 789-8) 3.20 4.3-5.7 L [facility] BudaHemoglobin2019-08-29 06:12:00* Test Item Value Reference Range Interpretation Comments Hemoglobin (test code = 06558-3) 9.0 14.0-18.0 L [facility] BudaHematocrit2019-08-29 06:12:00* Test Item Value Reference Range Interpretation Comments Hematocrit (test code = 4544-3) 28.1 38.2-49.6 L [facility] BudaMean Corpuscular Dxtazt5338-72-04 06:12:00* Test Item Value Reference Range Interpretation Comments Mean Corpuscular Volume (test code = 787-2) 87.8 81-99 [facility] BudaMean Corpuscular Iluuuhsblr1760-20-17 06:12:00* Test Item Value Reference Range Interpretation Comments Mean Corpuscular Hemoglobin (test code = 785-6) 28.1 28-32 [facility] BudaMean Corpuscular Hemoglobin Concent 2018-11-25 06:12:00* Test Item Value Reference Range Interpretation Comments Mean Corpuscular Hemoglobin Concent (test code = 786-4) 32.0 31-35 [facility] BudaRed Cell Distribution Zhnmc6026-42-94 06:12:00* Test Item Value Reference Range Interpretation Comments Red Cell Distribution Width (test code = 17517-2) 13.7 11.7 -14.4 [facility] BudaPlatelet Iwnoh6463-69-85 06:12:00* Test Item Value Reference Range Interpretation Comments Platelet Count (test code = 777-3) 185 140-360 [facility] BudaNeutrophils (%) (Auto)2018-11-25 06:12:00 * Test Item Value Reference Range Interpretation Comments Neutrophils (%) (Auto) (test code = 14237-5) 60.5 38.7-80.0 [facility] BudaLymphocytes (%) (Auto)2018-11-25 06:12:00 * Test Item Value Reference Range Interpretation Comments Lymphocytes (%) (Auto) (test code = 736-9) 24.7 18.0-39.1 [facility]udaMonocytes (%) (Auto)2018-11-25 06:12:00* Test Item Value Reference Range Interpretation Comments Monocytes (%) (Auto) (test code = 5905-5) 12.2 4.4-11.3 H [facility] BudaEosinophils (%) (Auto)2018-11-25 06:12:00 * Test Item Value Reference Range Interpretation Comments Eosinophils (%) (Auto) (test code = 713-8) 2.0 0.0-6.0 [facility]udaBasophils (%) (Auto)2018-11-25 06:12:00* Test Item Value Reference Range Interpretation Comments Basophils (%) (Auto) (test code = 706-2) 0.5 0.0-1.0 [facility] BudaIM GRANULOCYTES %2018-11-25 06:12:00* Test Item Value Reference Range Interpretation Comments IM GRANULOCYTES % (test code = IM GRANULOCYTES %) 0.1 0.0- 1.0 [facility]udaNeutrophils # (Auto)2018-11-25 06:12:00* Test Item Value Reference Range Interpretation Comments Neutrophils # (Auto) (test code = 751-8) 6.1 2.1-6.9 [facility]udaLymphocytes # (Auto)2018-11-25 06:12:00* Test Item Value Reference Range Interpretation Comments Lymphocytes # (Auto) (test code = 98158-1) 2.5 1.0-3.2 [facility]udaMonocytes # (Auto)2018-11-25 06:12:00* Test Item Value Reference Range Interpretation Comments Monocytes # (Auto) (test code = 742-7) 1.2 0.2-0.8 H [facility]udaEosinophils # (Auto)2018-11-25 06:12:00* Test Item Value Reference Range Interpretation Comments Eosinophils # (Auto) (test code = 711-2) 0.2 0.0-0.4 [facility]udaBasophils # (Auto)2018-11-25 06:12:00* Test Item Value Reference Range Interpretation Comments Basophils # (Auto) (test code = 704-7) 0.1 0.0-0.1 [facility] BudaAbsolute Immature Granulocyte (auto 2018-11-25 06:12:00* Test Item Value Reference Range Interpretation Comments Absolute Immature Granulocyte (auto (zeenat t code = Absolute Immature Granulocyte (auto) 0.01 0-0.1 [facility] BudaWhite Blood Jswsp0111-73-50 06:12:00* Test Item Value Reference Range Interpretation Comments White Blood Count (test code = 6690-2) 10.09 4.8-10.8 [facility] BudaRed Blood Hblez5900-77-27 06:12:00* Test Item Value Reference Range Interpretation Comments Red Blood Count (test code = 789-8) 3.20 4.3-5.7 L [facility] BudaHemoglobin2019-08-29 06:12:00* Test Item Value Reference Range Interpretation Comments Hemoglobin (test code = 77630-5) 9.0 14.0-18.0 L [facility] BudaHematocrit2019-08-29 06:12:00* Test Item Value Reference Range Interpretation Comments Hematocrit (test code = 4544-3) 28.1 38.2-49.6 L [facility] BudaMean Corpuscular Ezwrrb8066-86-81 06:12:00* Test Item Value Reference Range Interpretation Comments Mean Corpuscular Volume (test code = 787-2) 87.8 81-99 [facility] BudaMean Corpuscular Frvvhzqtqy8200-55-98 06:12:00* Test Item Value Reference Range Interpretation Comments Mean Corpuscular Hemoglobin (test code = 785-6) 28.1 28-32 [facility] BudaMean Corpuscular Hemoglobin Concent 2018-11-25 06:12:00* Test Item Value Reference Range Interpretation Comments Mean Corpuscular Hemoglobin Concent (test code = 786-4) 32.0 31-35 [facility] BudaRed Cell Distribution Wwkbx4713-59-76 06:12:00* Test Item Value Reference Range Interpretation Comments Red Cell Distribution Width (test code = 76728-3) 13.7 11.7 -14.4 [facility] BudaPlatelet Sgpij8967-85-06 06:12:00* Test Item Value Reference Range Interpretation Comments Platelet Count (test code = 777-3) 185 140-360 [facility] BudaNeutrophils (%) (Auto)2018-11-25 06:12:00 * Test Item Value Reference Range Interpretation Comments Neutrophils (%) (Auto) (test code = 09576-7) 60.5 38.7-80.0 [facility] BudaLymphocytes (%) (Auto)2018-11-25 06:12:00 * Test Item Value Reference Range Interpretation Comments Lymphocytes (%) (Auto) (test code = 736-9) 24.7 18.0-39.1 [facility] BudaMonocytes (%) (Auto)2018-11-25 06:12:00* Test Item Value Reference Range Interpretation Comments Monocytes (%) (Auto) (test code = 5905-5) 12.2 4.4-11.3 H [facility] BudaEosinophils (%) (Auto)2018-11-25 06:12:00 * Test Item Value Reference Range Interpretation Comments Eosinophils (%) (Auto) (test code = 713-8) 2.0 0.0-6.0 [facility] BudaBasophils (%) (Auto)2018-11-25 06:12:00* Test Item Value Reference Range Interpretation Comments Basophils (%) (Auto) (test code = 706-2) 0.5 0.0-1.0 [facility] BudaIM GRANULOCYTES %2018-11-25 06:12:00* Test Item Value Reference Range Interpretation Comments IM GRANULOCYTES % (test code = IM GRANULOCYTES %) 0.1 0.0- 1.0 [facility] BudaNeutrophils # (Auto)2018-11-25 06:12:00* Test Item Value Reference Range Interpretation Comments Neutrophils # (Auto) (test code = 751-8) 6.1 2.1-6.9 [facility] BudaLymphocytes # (Auto)2018-11-25 06:12:00* Test Item Value Reference Range Interpretation Comments Lymphocytes # (Auto) (test code = 19292-7) 2.5 1.0-3.2 [facility] BudaMonocytes # (Auto)2018-11-25 06:12:00* Test Item Value Reference Range Interpretation Comments Monocytes # (Auto) (test code = 742-7) 1.2 0.2-0.8 H [facility]udaEosinophils # (Auto)2018-11-25 06:12:00* Test Item Value Reference Range Interpretation Comments Eosinophils # (Auto) (test code = 711-2) 0.2 0.0-0.4 [facility]udaBasophils # (Auto)2018-11-25 06:12:00* Test Item Value Reference Range Interpretation Comments Basophils # (Auto) (test code = 704-7) 0.1 0.0-0.1 [facility] BudaAbsolute Immature Granulocyte (auto 2018-11-25 06:12:00* Test Item Value Reference Range Interpretation Comments Absolute Immature Granulocyte (auto (zeenat t code = Absolute Immature Granulocyte (auto) 0.01 0-0.1 [facility] BudaWhite Blood Cyahb7300-05-15 06:12:00* Test Item Value Reference Range Interpretation Comments White Blood Count (test code = 6690-2) 10.09 4.8-10.8 [facility] BudaRed Blood Sybfo2027-51-05 06:12:00* Test Item Value Reference Range Interpretation Comments Red Blood Count (test code = 789-8) 3.20 4.3-5.7 L [facility] BudaHemoglobin2019-08-29 06:12:00* Test Item Value Reference Range Interpretation Comments Hemoglobin (test code = 15156-1) 9.0 14.0-18.0 L [facility] BudaHematocrit2019-08-29 06:12:00* Test Item Value Reference Range Interpretation Comments Hematocrit (test code = 4544-3) 28.1 38.2-49.6 L [facility] BudaMean Corpuscular Njjidi3881-71-37 06:12:00* Test Item Value Reference Range Interpretation Comments Mean Corpuscular Volume (test code = 787-2) 87.8 81-99 [facility] BudaMean Corpuscular Fkcclactjh4175-88-53 06:12:00* Test Item Value Reference Range Interpretation Comments Mean Corpuscular Hemoglobin (test code = 785-6) 28.1 28-32 [facility] BudaMean Corpuscular Hemoglobin Concent 2018-11-25 06:12:00* Test Item Value Reference Range Interpretation Comments Mean Corpuscular Hemoglobin Concent (test code = 786-4) 32.0 31-35 [facility] BudaRed Cell Distribution Gmfbg6408-38-34 06:12:00* Test Item Value Reference Range Interpretation Comments Red Cell Distribution Width (test code = 71227-7) 13.7 11.7 -14.4 [facility] BudaPlatelet Fophz9502-58-52 06:12:00* Test Item Value Reference Range Interpretation Comments Platelet Count (test code = 777-3) 185 140-360 [facility] BudaNeutrophils (%) (Auto)2018-11-25 06:12:00 * Test Item Value Reference Range Interpretation Comments Neutrophils (%) (Auto) (test code = 41197-8) 60.5 38.7-80.0 [facility] BudaLymphocytes (%) (Auto)2018-11-25 06:12:00 * Test Item Value Reference Range Interpretation Comments Lymphocytes (%) (Auto) (test code = 736-9) 24.7 18.0-39.1 [facility] BudaMonocytes (%) (Auto)2018-11-25 06:12:00* Test Item Value Reference Range Interpretation Comments Monocytes (%) (Auto) (test code = 5905-5) 12.2 4.4-11.3 H [facility]udaEosinophils (%) (Auto)2018-11-25 06:12:00 * Test Item Value Reference Range Interpretation Comments Eosinophils (%) (Auto) (test code = 713-8) 2.0 0.0-6.0 [facility] BudaBasophils (%) (Auto)2018-11-25 06:12:00* Test Item Value Reference Range Interpretation Comments Basophils (%) (Auto) (test code = 706-2) 0.5 0.0-1.0 [facility] [facility] %2018-11-25 06:12:00* Test Item Value Reference Range Interpretation Comments IM GRANULOCYTES % (test code = IM GRANULOCYTES %) 0.1 0.0- 1.0 [facility]udaNeutrophils # (Auto)2018-11-25 06:12:00* Test Item Value Reference Range Interpretation Comments Neutrophils # (Auto) (test code = 751-8) 6.1 2.1-6.9 [facility]udaLymphocytes # (Auto)2018-11-25 06:12:00* Test Item Value Reference Range Interpretation Comments Lymphocytes # (Auto) (test code = 28257-5) 2.5 1.0-3.2 [facility]udaMonocytes # (Auto)2018-11-25 06:12:00* Test Item Value Reference Range Interpretation Comments Monocytes # (Auto) (test code = 742-7) 1.2 0.2-0.8 H [facility]udaEosinophils # (Auto)2018-11-25 06:12:00* Test Item Value Reference Range Interpretation Comments Eosinophils # (Auto) (test code = 711-2) 0.2 0.0-0.4 [facility]udaBasophils # (Auto)2018-11-25 06:12:00* Test Item Value Reference Range Interpretation Comments Basophils # (Auto) (test code = 704-7) 0.1 0.0-0.1 [facility] BudaAbsolute Immature Granulocyte (auto 2018-11-25 06:12:00* Test Item Value Reference Range Interpretation Comments Absolute Immature Granulocyte (auto (zeenat t code = Absolute Immature Granulocyte (auto) 0.01 0-0.1 [facility]odium Hgdpb0556-16-42 05:57:00* Test Item Value Reference Range Interpretation Comments Sodium Level (test code = 2951-2) 138 136-145 [facility] BudaPotassium Kyeqs4435-07-44 05:57:00* Test Item Value Reference Range Interpretation Comments Potassium Level (test code = 2823-3) 3.3 3.5-5.1 L [facility] BudaChloride Tbgmt6089-39-15 05:57:00* Test Item Value Reference Range Interpretation Comments Chloride Level (test code = 2075-0) 105 98-107 [facility] BudaCarbon Dioxide Qgrpy1731-60-76 05:57:00* Test Item Value Reference Range Interpretation Comments Carbon Dioxide Level (test code = 2028-9) 27 22-29 [facility] BudaAnion Ebr4868-55-58 05:57:00* Test Item Value Reference Range Interpretation Comments Anion Gap (test code = 13545-3) 9.3 8-16 [facility] [place]udaBlood Urea Kckffqul0295-65-75 05:57:00* Test Item Value Reference Range Interpretation Comments Blood Urea Nitrogen (test code = 3094-0) 15 - [facility] BudaCreatinine2019-08-29 05:57:00* Test Item Value Reference Range Interpretation Comments Creatinine (test code = 2160-0) 1.17 0.72-1.25 [facility]udaBUN/Creatinine Mxohu8741-33-64 05:57:00* Test Item Value Reference Range Interpretation Comments BUN/Creatinine Ratio (test code = 3097-3) 13 09-21 [facility] BudaEstimat Glomerular Filtration Rate 2018-11-25 05:57:00* Test Item Value Reference Range Interpretation Comments Estimat Glomerular Filtration Rate (test code = 722300306) > 60 >60 Ranges were taken from the National Kidney Disease Education Program and the [facility] Kidney Foundation literature.Reference ranges:60 or greater: Riigos49-82 ( for 3 consecutive months): Chronic kidney disease 15 or less: Kidney failureBaylor Scott & [facility] – BudaGlucose Lhbdw6175-24-01 05:57:00* Test Item Value Reference Range Interpretation Comments Glucose Level (test code = JOS4268) 247 74-118 H [facility] BudaCalcium Xchgr9809-69-39 05:57:00* Test Item Value Reference Range Interpretation Comments Calcium Level (test code = 95825-3) 8.4 8.4-10.2 [facility]viewodium Ufbtk2316-70-31 05:57:00* Test Item Value Reference Range Interpretation Comments Sodium Level (test code = 2951-2) 138 136-145 [facility] BudaPotassium Xfmjz2726-93-83 05:57:00* Test Item Value Reference Range Interpretation Comments Potassium Level (test code = 2823-3) 3.3 3.5-5.1 L [facility] BudaChloride Ubhnc5821-05-55 05:57:00* Test Item Value Reference Range Interpretation Comments Chloride Level (test code = 2075-0) 105 98-107 [facility] BudaCarbon Dioxide Xkxcl3556-19-16 05:57:00* Test Item Value Reference Range Interpretation Comments Carbon Dioxide Level (test code = 2028-9) 27 - [facility] BudaAnion Ckl3195-82-96 05:57:00* Test Item Value Reference Range Interpretation Comments Anion Gap (test code = 92081-0) 9.3 8-16 [facility] BudaBlood Urea Qdulnzdw9715-33-48 05:57:00* Test Item Value Reference Range Interpretation Comments Blood Urea Nitrogen (test code = 3094-0) 15 7-26 [facility] BudaCreatinine2019-08-29 05:57:00* Test Item Value Reference Range Interpretation Comments Creatinine (test code = 2160-0) 1.17 0.72-1.25 [facility]udaBUN/Creatinine Bprgn9565-25-96 05:57:00* Test Item Value Reference Range Interpretation Comments BUN/Creatinine Ratio (test code = 3097-3) 13 09-21 [facility] BudaEstimat Glomerular Filtration Rate 2018-11-25 05:57:00* Test Item Value Reference Range Interpretation Comments Estimat Glomerular Filtration Rate (test code = 971490144) > 60 >60 Ranges were taken from the National Kidney Disease Education Program and the [facility] Foundation literature.Reference ranges:60 or greater: Fkxotn76-95 ( for 3 consecutive months): Chronic kidney disease 15 or less: Kidney failureBaylor Scott & White [facility] – BudaGlucose Dnukq2384-71-50 05:57:00* Test Item Value Reference Range Interpretation Comments Glucose Level (test code = ENH5162) 247 74-118 H [facility] BudaCalcium Uvtky5316-30-57 05:57:00* Test Item Value Reference Range Interpretation Comments Calcium Level (test code = 10934-7) 8.4 8.4-10.2 [facility]viewodium Lyqpf0771-35-05 05:57:00* Test Item Value Reference Range Interpretation Comments Sodium Level (test code = 2951-2) 138 136-145 [facility]udaPotassium Yvphu7543-62-30 05:57:00* Test Item Value Reference Range Interpretation Comments Potassium Level (test code = 2823-3) 3.3 3.5-5.1 L [facility] BudaChloride Eksvc3889-26-57 05:57:00* Test Item Value Reference Range Interpretation Comments Chloride Level (test code = 2075-0) 105 98-107 [facility] BudaCarbon Dioxide Sqdqr3283-28-36 05:57:00* Test Item Value Reference Range Interpretation Comments Carbon Dioxide Level (test code = 2028-9) 27 22-29 [facility] BudaAnion Zfj8634-74-91 05:57:00* Test Item Value Reference Range Interpretation Comments Anion Gap (test code = 72214-0) 9.3 8-16 [facility] BudaBlood Urea Mkawcgyc0004-90-60 05:57:00* Test Item Value Reference Range Interpretation Comments Blood Urea Nitrogen (test code = 3094-0) 15 - [facility] BudaCreatinine2019-08-29 05:57:00* Test Item Value Reference Range Interpretation Comments Creatinine (test code = 2160-0) 1.17 0.72-1.25 [facility]udaBUN/Creatinine Zzbbv4941-27-86 05:57:00* Test Item Value Reference Range Interpretation Comments BUN/Creatinine Ratio (test code = 3097-3) 13 09-21 [facility] BudaEstimat Glomerular Filtration Rate 2018-11-25 05:57:00* Test Item Value Reference Range Interpretation Comments Estimat Glomerular Filtration Rate (test code = 166062179) > 60 >60 Ranges were taken from the National Kidney Disease Education Program and the [facility] Foundation literature.Reference ranges:60 or greater: Cdjwon42-85 ( for 3 consecutive months): Chronic kidney disease 15 or less: Kidney failureBaylor Scott & White [facility] – BudaGlucose Jdrui6974-85-91 05:57:00* Test Item Value Reference Range Interpretation Comments Glucose Level (test code = TAR6668) 247 74-118 H [facility] [place]udaCalcium Plhaa6686-75-29 05:57:00* Test Item Value Reference Range Interpretation Comments Calcium Level (test code = 59648-7) 8.4 8.4-10.2 [facility]viewodium Fwfzd8334-16-47 05:57:00* Test Item Value Reference Range Interpretation Comments Sodium Level (test code = 2951-2) 138 136-145 [facility]udaPotassium Qtvrb8277-88-93 05:57:00* Test Item Value Reference Range Interpretation Comments Potassium Level (test code = 2823-3) 3.3 3.5-5.1 L [facility] BudaChloride Bldrv9740-62-12 05:57:00* Test Item Value Reference Range Interpretation Comments Chloride Level (test code = 2075-0) 105 98-107 [facility] [place]udaCarbon Dioxide Imlrb1897-99-34 05:57:00* Test Item Value Reference Range Interpretation Comments Carbon Dioxide Level (test code = 2028-9) - [facility] BudaAnion Pbi7138-64-68 05:57:00* Test Item Value Reference Range Interpretation Comments Anion Gap (test code = 13535-3) 9.3 8-16 [facility]udaBlood Urea Ckitpezd6651-14-96 05:57:00* Test Item Value Reference Range Interpretation Comments Blood Urea Nitrogen (test code = 3094-0) 15 7-26 [facility] BudaCreatinine2019-08-29 05:57:00* Test Item Value Reference Range Interpretation Comments Creatinine (test code = 2160-0) 1.17 0.72-1.25 [facility]udaBUN/Creatinine Jcdvb7617-42-52 05:57:00* Test Item Value Reference Range Interpretation Comments BUN/Creatinine Ratio (test code = 3097-3) 13 6- [facility]udaEstimat Glomerular Filtration Rate 2018-11-25 05:57:00* Test Item Value Reference Range Interpretation Comments Estimat Glomerular Filtration Rate (test code = 692001985) > 60 >60 Ranges were taken from the National Kidney Disease Education Program and the [facility] Kid[facility] Foundation literature.Reference ranges:60 or greater: Piqdxr97-02 ( for 3 consecutive months): Chronic kidney disease 15 or less: Kidney failureBaylor Scott & White [facility] – BudaGlucose Klmoc7200-77-81 05:57:00* Test Item Value Reference Range Interpretation Comments Glucose Level (test code = KQV5488) 247 74-118 H [facility] BudaCalcium Gahau7058-26-15 05:57:00* Test Item Value Reference Range Interpretation Comments Calcium Level (test code = 44017-3) 8.4 8.4-10.2 [facility] BudaBlood Tulmnlj8803-29-72 20:52:00* Test Item Value Reference Range Interpretation Comments Blood Culture (test code = 37745870) NO GROWTH AFTER 48 HOURS [facility] BudaUrine WUR4847-62-74 10:48:00* Test Item Value Reference Range Interpretation Comments Urine WBC (test code = 5821-4) 6-10 0-5 H [facility] BudaUrine CTU2628-16-07 10:48:00* Test Item Value Reference Range Interpretation Comments Urine RBC (test code = 00773-8) 0-5 0-5 [facility] BudaUrine Acbdvali4833-41-45 10:48:00* Test Item Value Reference Range Interpretation Comments Urine Bacteria (test code = 35786-3) MODERATE NONE H [facility] BudaUrine Epithelial Lyafg3034-78-00 10:48:00 * Test Item Value Reference Range Interpretation Comments Urine Epithelial Cells (test code = 86351-5) FEW NONE [facility] BudaUrine NYD4250-83-07 10:48:00* Test Item Value Reference Range Interpretation Comments Urine WBC (test code = 5821-4) 6-10 0-5 H [facility] BudaUrine QFS7795-50-37 10:48:00* Test Item Value Reference Range Interpretation Comments Urine RBC (test code = 58876-9) 0-5 0-5 [facility]udaUrine Cqbvwfpl3984-90-33 10:48:00* Test Item Value Reference Range Interpretation Comments Urine Bacteria (test code = 10696-7) MODERATE NONE H [facility]udaUrine Epithelial Kgyls9102-40-42 10:48:00 * Test Item Value Reference Range Interpretation Comments Urine Epithelial Cells (test code = 90108-7) FEW NONE [facility] BudaUrine LHC7975-52-75 10:48:00* Test Item Value Reference Range Interpretation Comments Urine WBC (test code = 5821-4) 6-10 0-5 H [facility] BudaUrine FST9789-32-86 10:48:00* Test Item Value Reference Range Interpretation Comments Urine RBC (test code = 85456-0) 0-5 0-5 [facility]udaUrine Mvpmctcw4606-28-97 10:48:00* Test Item Value Reference Range Interpretation Comments Urine Bacteria (test code = 16320-1) MODERATE NONE H [facility]udaUrine Epithelial Ttstq5711-59-51 10:48:00 * Test Item Value Reference Range Interpretation Comments Urine Epithelial Cells (test code = 74406-1) FEW NONE [facility] EFG7779-29-96 10:48:00* Test Item Value Reference Range Interpretation Comments Urine WBC (test code = 5821-4) 6-10 0-5 H [facility] CTS4125-46-84 10:48:00* Test Item Value Reference Range Interpretation Comments Urine RBC (test code = 53155-3) 0-5 0-5 [facility] Giugoddt1758-42-00 10:48:00* Test Item Value Reference Range Interpretation Comments Urine Bacteria (test code = 31191-8) MODERATE NONE H [facility]udaUrine Epithelial Bnwzt4122-81-80 10:48:00 * Test Item Value Reference Range Interpretation Comments Urine Epithelial Cells (test code = 56951-5) FEW NONE [facility]udaUrine YGP7079-96-04 10:48:00* Test Item Value Reference Range Interpretation Comments Urine WBC (test code = 5821-4) 6-10 0-5 H [facility] YUA4977-61-25 10:48:00* Test Item Value Reference Range Interpretation Comments Urine RBC (test code = 63201-8) 0-5 0-5 [facility] Csujnwqu9783-36-98 10:48:00* Test Item Value Reference Range Interpretation Comments Urine Bacteria (test code = 94726-7) MODERATE NONE H [facility]udaUrine Epithelial Linku4502-76-73 10:48:00 * Test Item Value Reference Range Interpretation Comments Urine Epithelial Cells (test code = 82059-3) FEW NONE [facility]udaUrine Jsrbt6558-05-59 10:24:00* Test Item Value Reference Range Interpretation Comments Urine Color (test code = 5778-6) YELLOW YELLOW [facility]udaUrine Xamjths7769-77-73 10:24:00* Test Item Value Reference Range Interpretation Comments Urine Clarity (test code = 56898-2) CLEAR CLEAR [facility] BudaUrine Specific Oirxcnw0359-16-84 10:24:00 * Test Item Value Reference Range Interpretation Comments Urine Specific Hector (test code = 5811-5) 1.025 1.010-1.02 5 [facility] BudaUrine bU1798-73-24 10:24:00* Test Item Value Reference Range Interpretation Comments Urine pH (test code = 54921-3) 6 5-7 [facility]udaUrine Leukocyte Rqqvtlcq4828-94-51 10:24:00* Test Item Value Reference Range Interpretation Comments Urine Leukocyte Esterase (test code = 57603-3) NEGATIVE NEGATIV E [facility] BudaUrine Pgitgig7796-59-79 10:24:00* Test Item Value Reference Range Interpretation Comments Urine Nitrite (test code = 97231-0) NEGATIVE NEGATIVE [facility] BudaUrine Lqoxylq0288-42-24 10:24:00* Test Item Value Reference Range Interpretation Comments Urine Protein (test code = 23440-0) NEGATIVE NEGATIVE [facility]udaUrine Glucose (UA)2018-11-24 10:24:00* Test Item Value Reference Range Interpretation Comments Urine Glucose (UA) (test code = 91536-6) NEGATIVE NEGATIVE [facility]udaUrine Eqdlnnk5594-47-27 10:24:00* Test Item Value Reference Range Interpretation Comments Urine Ketones (test code = 03989-8) 1+ NEGATIVE H [facility] Tylgtyqrvhjc7224-53-20 10:24:00* Test Item Value Reference Range Interpretation Comments Urine Urobilinogen (test code = 67853-4) 0.2 0.2-1 [facility]udaUrine Yocwpveat6784-22-88 10:24:00* Test Item Value Reference Range Interpretation Comments Urine Bilirubin (test code = 1977-8) NEGATIVE NEGATIVE [facility] BudaUrine Tayvs1353-16-74 10:24:00* Test Item Value Reference Range Interpretation Comments Urine Blood (test code = 21772-6) NEGATIVE NEGATIVE [facility]udaUrine Jfnyc7990-84-88 10:24:00* Test Item Value Reference Range Interpretation Comments Urine Color (test code = 5778-6) YELLOW YELLOW [facility]udaUrine Gmipvly6855-92-02 10:24:00* Test Item Value Reference Range Interpretation Comments Urine Clarity (test code = 44912-3) CLEAR CLEAR [facility]udaUrine Specific Csfjtzp4813-77-54 10:24:00 * Test Item Value Reference Range Interpretation Comments Urine Specific Hector (test code = 5811-5) 1.025 1.010-1.02 5 [facility]udaU[facility] zF5672-19-74 10:24:00* Test Item Value Reference Range Interpretation Comments Urine pH (test code = 45990-8) 6 5-7 [facility]udaUrine Leukocyte Fqphoqxa1606-39-90 10:24:00* Test Item Value Reference Range Interpretation Comments Urine Leukocyte Esterase (test code = 34681-3) NEGATIVE NEGATIV E [facility]udaU[facility] Qtdkgre1920-73-75 10:24:00* Test Item Value Reference Range Interpretation Comments Urine Nitrite (test code = 42900-8) NEGATIVE NEGATIVE [facility]udaUrine Rovljbi1584-32-15 10:24:00* Test Item Value Reference Range Interpretation Comments Urine Protein (test code = 28426-9) NEGATIVE NEGATIVE [facility]udaUrine Glucose (UA)2018-11-24 10:24:00* Test Item Value Reference Range Interpretation Comments Urine Glucose (UA) (test code = 74866-1) NEGATIVE NEGATIVE [facility]udaU[facility] Nardgxt9784-81-99 10:24:00* Test Item Value Reference Range Interpretation Comments Urine Ketones (test code = 90581-8) 1+ NEGATIVE H [facility]udaU[facility] Ancfstfmklqf3049-48-93 10:24:00* Test Item Value Reference Range Interpretation Comments Urine Urobilinogen (test code = 89565-6) 0.2 0.2-1 [facility]udaU[facility] Qbovilkrp1715-77-30 10:24:00* Test Item Value Reference Range Interpretation Comments Urine Bilirubin (test code = 1977-8) NEGATIVE NEGATIVE [facility]udaU[facility] Mjsse6348-28-19 10:24:00* Test Item Value Reference Range Interpretation Comments Urine Blood (test code = 83281-8) NEGATIVE NEGATIVE [facility]udaU[facility] Msnjc5596-49-44 10:24:00* Test Item Value Reference Range Interpretation Comments Urine Color (test code = 5778-6) YELLOW YELLOW [facility]udaUrine Jrfycnx7125-80-41 10:24:00* Test Item Value Reference Range Interpretation Comments Urine Clarity (test code = 23004-3) CLEAR CLEAR [facility]udaUrine Specific Nkvngim3502-25-52 10:24:00 * Test Item Value Reference Range Interpretation Comments Urine Specific Hector (test code = 5811-5) 1.025 1.010-1.02 5 [facility]udaU[facility] dQ4723-54-22 10:24:00* Test Item Value Reference Range Interpretation Comments Urine pH (test code = 19743-1) 6 5-7 [facility]uda[facility] Leukocyte Pwnmvcxh0286-00-06 10:24:00* Test Item Value Reference Range Interpretation Comments Urine Leukocyte Esterase (test code = 64656-9) NEGATIVE NEGATIV E [facility]udaU[facility] Xexfdjj7973-21-26 10:24:00* Test Item Value Reference Range Interpretation Comments Urine Nitrite (test code = 97005-9) NEGATIVE NEGATIVE [facility]udaU[facility] Aggnpqi5724-28-46 10:24:00* Test Item Value Reference Range Interpretation Comments Urine Protein (test code = 86273-4) NEGATIVE NEGATIVE [facility]udaUrine Glucose (UA)2018-11-24 10:24:00* Test Item Value Reference Range Interpretation Comments Urine Glucose (UA) (test code = 93497-2) NEGATIVE NEGATIVE [facility]udaU[facility] Rlfniom1463-08-61 10:24:00* Test Item Value Reference Range Interpretation Comments Urine Ketones (test code = 94172-3) 1+ NEGATIVE H [facility] Ttmubxjztbnt7762-27-38 10:24:00* Test Item Value Reference Range Interpretation Comments Urine Urobilinogen (test code = 86852-9) 0.2 0.2-1 [facility]udaU[facility] Iepnhotsy2753-39-16 10:24:00* Test Item Value Reference Range Interpretation Comments Urine Bilirubin (test code = 1977-8) NEGATIVE NEGATIVE [facility] Ormfg5038-63-73 10:24:00* Test Item Value Reference Range Interpretation Comments Urine Blood (test code = 99672-6) NEGATIVE NEGATIVE [facility] Kpjrq0299-01-18 10:24:00* Test Item Value Reference Range Interpretation Comments Urine Color (test code = 5778-6) YELLOW YELLOW [facility]udaU[facility] Rsqaezd0889-37-78 10:24:00* Test Item Value Reference Range Interpretation Comments Urine Clarity (test code = 51159-0) CLEAR CLEAR [facility] BudaUrine Specific Nukoyeg7859-52-93 10:24:00 * Test Item Value Reference Range Interpretation Comments Urine Specific Hector (test code = 5811-5) 1.025 1.010-1.02 5 [facility]udaU[facility] mQ7705-96-71 10:24:00* Test Item Value Reference Range Interpretation Comments Urine pH (test code = 02051-5) 6 5-7 [facility]uda[facility] Leukocyte Rikugleh5978-46-72 10:24:00* Test Item Value Reference Range Interpretation Comments Urine Leukocyte Esterase (test code = 28261-3) NEGATIVE NEGATIV E [facility]udaU[facility] Ggjvqdn9208-63-53 10:24:00* Test Item Value Reference Range Interpretation Comments Urine Nitrite (test code = 72024-0) NEGATIVE NEGATIVE [facility]udaU[facility] Wivreov6612-16-72 10:24:00* Test Item Value Reference Range Interpretation Comments Urine Protein (test code = 76975-3) NEGATIVE NEGATIVE [facility]udaU[facility] Glucose (UA)2018-11-24 10:24:00* Test Item Value Reference Range Interpretation Comments Urine Glucose (UA) (test code = 21841-4) NEGATIVE NEGATIVE [facility] Zhmrmrr8664-39-70 10:24:00* Test Item Value Reference Range Interpretation Comments Urine Ketones (test code = 21188-2) 1+ NEGATIVE H [facility] Xmcftyqzdjix0272-69-02 10:24:00* Test Item Value Reference Range Interpretation Comments Urine Urobilinogen (test code = 80556-3) 0.2 0.2-1 [facility] Jbglfnrvh9288-47-10 10:24:00* Test Item Value Reference Range Interpretation Comments Urine Bilirubin (test code = 1977-8) NEGATIVE NEGATIVE [facility] Kreac5167-92-30 10:24:00* Test Item Value Reference Range Interpretation Comments Urine Blood (test code = 33350-0) NEGATIVE NEGATIVE [facility] Cselz2788-73-81 10:24:00* Test Item Value Reference Range Interpretation Comments Urine Color (test code = 5778-6) YELLOW YELLOW [facility]udaU[facility] Mvlsjcf0780-70-17 10:24:00* Test Item Value Reference Range Interpretation Comments Urine Clarity (test code = 46159-2) CLEAR CLEAR [facility]udaU[facility] Specific Otjvfmf5442-98-39 10:24:00 * Test Item Value Reference Range Interpretation Comments Urine Specific Hector (test code = 5811-5) 1.025 1.010-1.02 5 [facility]udaU[facility] pB1725-40-64 10:24:00* Test Item Value Reference Range Interpretation Comments Urine pH (test code = 91579-6) 6 5-7 [facility]uda[facility] Leukocyte Svnaplrr2276-75-16 10:24:00* Test Item Value Reference Range Interpretation Comments Urine Leukocyte Esterase (test code = 13456-1) NEGATIVE NEGATIV E [facility]uda[facility]rine Psaksqc8511-58-45 10:24:00* Test Item Value Reference Range Interpretation Comments Urine Nitrite (test code = 10976-3) NEGATIVE NEGATIVE [facility]udaUrine Rbimhoz4584-62-73 10:24:00* Test Item Value Reference Range Interpretation Comments Urine Protein (test code = 12630-2) NEGATIVE NEGATIVE [facility] BudaUrine Glucose (UA)2018-11-24 10:24:00* Test Item Value Reference Range Interpretation Comments Urine Glucose (UA) (test code = 76513-1) NEGATIVE NEGATIVE [facility] Buda[facility]rine Rodctqo7190-88-10 10:24:00* Test Item Value Reference Range Interpretation Comments Urine Ketones (test code = 92841-0) 1+ NEGATIVE H [facility] Btdilwrcpgrn6749-31-37 10:24:00* Test Item Value Reference Range Interpretation Comments Urine Urobilinogen (test code = 79964-9) 0.2 0.2-1 [facility]uda[facility] Ggyvqrsul6561-05-41 10:24:00* Test Item Value Reference Range Interpretation Comments Urine Bilirubin (test code = 1977-8) NEGATIVE NEGATIVE [facility]uda[facility] Xrgeu8304-35-15 10:24:00* Test Item Value Reference Range Interpretation Comments Urine Blood (test code = 80959-3) NEGATIVE NEGATIVE [facility]udaUrine color biowdemehfkbj8350-91-77 08:40:00* Test Item Value Reference Range Interpretation Comments Urine Color (test code = 5778-6) YELLOW YELLOW [facility] BudaUrine hhtyqaj8907-98-03 08:40:00* Test Item Value Reference Range Interpretation Comments Urine Clarity (test code = 09656-1) CLEAR CLEAR [facility] gravity of Urine by Test strip 2018-11-24 08:40:00* Test Item Value Reference Range Interpretation Comments Urine Specific Hector (test code = 5811-5) 1.025 1.010-1.02 5 [facility] pH measurement by automated test hogly5967-64-68 08:40:00* Test Item Value Reference Range Interpretation Comments Urine pH (test code = 71916-4) 6 5-7 [facility]uda[facility]rine leukocyte esterase detection by automated test fiahc9430-34-91 08:40:00* Test Item Value Reference Range Interpretation Comments Urine Leukocyte Esterase (test code = 44361-9) NEGATIVE NEGATIV E [facility]udaUrine nitrite detection by automated test eygrq3630-85-29 08:40:00* Test Item Value Reference Range Interpretation Comments Urine Nitrite (test code = 96840-7) NEGATIVE NEGATIVE [facility]uda[facility] protein detection by automated test kmxej5051-90-45 08:40:00* Test Item Value Reference Range Interpretation Comments Urine Protein (test code = 71143-3) NEGATIVE NEGATIVE [facility]udaUrine glucose detection by automated test anqum7323-27-02 08:40:00* Test Item Value Reference Range Interpretation Comments Urine Glucose (UA) (test code = 66651-6) NEGATIVE NEGATIVE [facility]udaUrine ketones detection by automated test ofspf6206-73-03 08:40:00* Test Item Value Reference Range Interpretation Comments Urine Ketones (test code = 48087-6) 1+ NEGATIVE [facility] BudaUrine urobilinogen measurement by test strip (mass/volume)2018-11-24 08:40:00* Test Item Value Reference Range Interpretation Comments Urine Urobilinogen (test code = 97684-1) 0.2 0.2-1 [facility]udaU[facility] total bilirubin ykzmxwcvu4373-78-52 08:40:00* Test Item Value Reference Range Interpretation Comments Urine Bilirubin (test code = 1977-8) NEGATIVE NEGATIVE [facility]udaU[facility] erythrocytes dfxbtfrkg6401-09-92 08:40:00* Test Item Value Reference Range Interpretation Comments Urine Blood (test code = 86533-8) NEGATIVE NEGATIVE [facility] BudaAutomated urine sediment leukocyte count by microscopy (number/high power field)2018-11-24 08:40:00* Test Item Value Reference Range Interpretation Comments Urine WBC (test code = 5821-4) 6-10 0-5 [facility] BudaErythrocytes detection in urine sediment by light pmtiabdnwm6033-27-49 08:40:00* Test Item Value Reference Range Interpretation Comments Urine RBC (test code = 17070-2) 0-5 0-5 [facility] BudaBacteria detection in urine sediment by light sjzkgbuxmv2787-69-22 08:40:00* Test Item Value Reference Range Interpretation Comments Urine Bacteria (test code = 08746-3) MODERATE NONE [facility] BudaEpithelial cells detection in urine sediment by light kbflbxffhe1588-92-46 08:40:00* Test Item Value Reference Range Interpretation Comments Urine Epithelial Cells (test code = 13879-6) FEW NONE [facility] BudaLipase2019-08-28 03:50:00* Test Item Value Reference Range Interpretation Comments Lipase (test code = 3040-3) < 4 8-78 L [facility] BudaCXR 1 VEW - DOHX7440-98-23 18:41:00 [facility] [address] [place] [address] Patient Name: BREE LINDSAY MR #: [id number] : 1975 Age/Sex: 42/M Req #: [id number] Adm Physician: ISACC JAVED MD Ordered by: NEIL PEREZ MD Report #: [id number] Location: [facility] Room/Bed: [place] [address] Procedure: [id number] HOPD/CXR 1 VEW - HOPD Exam Date: 11/22/18 Exam Time : 1755 REPORT STATUS: Signed EXA MINATION: CXR 1 VIEW - HOPD COMPARISON: None INDICATION: Hemateme sis [id number] DISCUSSION: Frontal view of the chest [...] on 11/22/181843 COPY TO: NEIL PEREZ MD JCVAUW2951-84-73 11:31:00* Test Item Value Reference Range Interpretation Comments GLUBED (test code = GLUBED) 163 mg/dL 74-106 H Performed by certified pick up operator at [facility] FUNQOS9093-68-01 05:52:00* Test Item Value Reference Range Interpretation Comments GLUBED (test code = GLUBED) 339 mg/dL 74-106 H Performed by certified pick up operator at [facility] BASIC METABOLIC HTPVA5250-73-49 05:04:00* Test Item Value Reference Range Interpretation [...] code = CA) 8.6 mg/dL 8.5-10.1 N ISGKQGWLFJ8060-45-24 05:04:00* Test Item Value Reference Range Interpretation Comments PHOSPHORUS (test code = PHOS) 2.5 mg/dL 2.5-4.9 N CKEKNULRD5180-74-03 05:04:00* Test Item Value Reference Range Interpretation Comments MAGNESIUM (test code = MAG) 1.7 mg/dL 1.8-2.4 L CBC W/AUTO DKWB8125-83-79 04:58:00* Test Item Value Reference Range Interpretation [...] (test code = MDIFF) NO BASIC METABOLIC FXLRZ1747-40-04 04:54:00* Test Item Value Reference Range Interpretation [...] CALCIUM (test code = CA) mg/dL 8.5-10.1 RVAVRQFXOO2261-97-67 04:54:00* Test Item Value Reference Range Interpretation Comments PHOSPHORUS (test code = PHOS) mg/dL 2.5-4.9 LNQGHKKIX1449-55-68 04:54:00* Test Item Value Reference Range Interpretation Comments MAGNESIUM (test code = MAG) mg/dL 1.8-2.4 BZLBGD4161-56-30 21:18:00* Test Item Value Reference Range Interpretation Comments GLUBED (test code = GLUBED) 363 mg/dL 74-106 H Performed by certified pick up operator at [facility] VYJJ1K7547-12-59 18:20:00* Test Item Value Reference Range Interpretation Comments GLYCOSYLATED HEMOGLOBIN (HA1C) (test code = GLYHGB) 9.0 % HbA1 4. 8-6.0 H ESTIMATED AVERAGE GLUCOSE (test code = EAG) 212 MG/DL MKACPG1960-26-02 17:42:00* Test Item Value Reference Range Interpretation Comments GLUBED (test code = GLUBED) 216 mg/dL 74-106 H Performed by certified pick up operator at [facility] TKOQTJ8171-16-17 13:09:00* Test Item Value Reference Range Interpretation Comments GLUBED (test code = GLUBED) 209 mg/dL 74-106 H Performed by certified pick up operator at [facility] LACTIC ZMOG7523-16-83 08:53:00* Test Item Value Reference Range Interpretation [...] taking into account the patients history. PROTHROMBIN UPJT1302-29-23 07:23:00* Test Item Value Reference Range Interpretation [...] (2.5-3.5) IS PATIENT ON ANTICOAGULANTS? NTHROMBOPLASTIN TIME YMZUNFT2563-06-55 07:23:00* Test Item Value Reference Range Interpretation Comments THROMBOPLASTIN TIME PARTIAL (test code = PTT) 26.2 seconds 25.0-36. 5 N IS PATIENT ON ANTICOAGULANTS? NBASIC METABOLIC MCBYF5306-00-93 06:41:00* Test Item Value Reference Range Interpretation [...] CA) 9.7 mg/dL 8.5-10.1 N HEPATIC FUNCTION UUNXJ0674-41-90 06:41:00* Test Item Value Reference Range Interpretation [...] reference range due to change in reagent. UQZNKM4341-92-10 06:41:00* Test Item Value Reference Range Interpretation Comments LIPASE (test code = LIP) 16 U/L 73.0-393.0 L GOUDLIVJ-D7065-55-03 06:41:00* Test Item Value Reference Range Interpretation Comments TROPONIN-I (test code = TROPI) <0.015 ng/mL 0-0.045 N BASIC METABOLIC BIYWU1743-63-08 06:27:00* Test Item Value Reference Range Interpretation [...] code = CA) mg/dL 8.5-10.1 HEPATIC FUNCTION FBJXJ7613-91-44 06:27:00* Test Item Value Reference Range Interpretation [...] TOTAL (test code = ALKP) IUnit/L 45-117 RBGWSH9164-84-98 06:27:00* Test Item Value Reference Range Interpretation Comments LIPASE (test code = LIP) U/L 73.0-393.0 KJEVJCLN-A6327-07-03 06:27:00* Test Item Value Reference Range Interpretation Comments TROPONIN-I (test code = TROPI) ng/mL 0-0.045 POC LACTIC INKC4678-04-38 06:23:00* Test Item Value Reference Range Interpretation Comments POC LACTIC ACID (test code = POCLAC) 1.46 MMOL/L 0.4-2.2 N CBC W/O KZIV8954-22-09 06:22:00* Test Item Value Reference Range Interpretation [...] = MPV) 11.6 fL 6.7-11.0 H GASTRIC DKVMOWDT0852-53-79 00:53:00 [facility] [address] [place] [address] Patient Name: BREE LINDSAY MR #: [id number] : 1975 Age/Sex: 42/M Req #: [id number] Adm Physician: Ordered by: TAVIA GARCIA MD Report #: [id number] Location: [place] Room/Bed: Procedure: N M/GASTRIC EMPTYING Exam Date: Exam Time: REPORT STATUS: Signed Solid-phase gastric emptying study Reason for examination: GERD with esophagitis; gastritis The protocol used for this study is based on the Consensus Recommendations fo r Gastric Scintigraphy by the [place] [employer] and the [...] on 09/21/1856 COPY TO: TAVIA GARCIA MD Ejgvbq7076-25-17 15:34:00* Test Item Value Reference Range Interpretation Comments Lipase (test code = 3040-3) < 4 8-78 L [facility] BudaLipase2019-05-14 15:34:00* Test Item Value Reference Range Interpretation Comments Lipase (test code = 3040-3) < 4 8-78 L [facility] BudaGLUBED2019-05-11 11:39:00* Test Item Value Reference Range Interpretation Comments GLUBED (test code = GLUBED) 102 mg/dL 74-106 N Performed by certified pick up operator at [facility] BASIC METABOLIC FEPVJ1959-35-44 11:27:00* Test Item Value Reference Range Interpretation [...] CA) 8.6 mg/dL 8.5-10.1 N CBC W/AUTO NFEC3419-30-23 11:02:00* Test Item Value Reference Range Interpretation [...] DIFF REQUIRED (test code = MDIFF) NO BUAQQN3792-97-00 07:41:00* Test Item Value Reference Range Interpretation Comments GLUBED (test code = GLUBED) 111 mg/dL 74-106 H Performed by certified pick up operator at [facility] CMDDHY2517-09-28 21:20:00* Test Item Value Reference Range Interpretation Comments GLUBED (test code = GLUBED) 201 mg/dL 74-106 H Performed by certified pick up operator at [facility] YVXYGG8839-22-97 16:36:00* Test Item Value Reference Range Interpretation Comments GLUBED (test code = GLUBED) 214 mg/dL 74-106 H Performed by certified pick up operator at [facility] QDOCHT1214-00-56 12:00:00* Test Item Value Reference Range Interpretation Comments GLUBED (test code = GLUBED) 266 mg/dL 74-106 H Performed by certified pick up operator at [facility] AVXIEW2856-90-43 07:31:00* Test Item Value Reference Range Interpretation Comments GLUBED (test code = GLUBED) 252 mg/dL 74-106 H Performed by certified pick up operator at [facility] ABSMSC3256-78-06 21:20:00* Test Item Value Reference Range Interpretation Comments GLUBED (test code = GLUBED) 109 mg/dL 74-106 H Performed by certified pick up operator at [facility] OFVOQK5336-82-58 16:47:00* Test Item Value Reference Range Interpretation Comments GLUBED (test code = GLUBED) 328 mg/dL 74-106 H Performed by certified pick up operator at [facility] BPSRIX5979-00-78 11:32:00* Test Item Value Reference Range Interpretation Comments GLUBED (test code = GLUBED) 145 mg/dL 74-106 H Performed by certified pick up operator at [facility] OXKLKD0163-21-29 07:54:00* Test Item Value Reference Range Interpretation Comments GLUBED (test code = GLUBED) 347 mg/dL 74-106 H Performed by certified pick up operator at [facility] CBC W/AUTO FZYA9814-48-85 07:28:00* Test Item Value Reference Range Interpretation [...] (test code = MDIFF) NO BASIC METABOLIC DYVMX6954-02-79 07:10:00* Test Item Value Reference Range Interpretation [...] CA) 8.8 mg/dL 8.5-10.1 N BASIC METABOLIC CEACQ0952-07-09 06:59:00* Test Item Value Reference Range Interpretation [...] CALCIUM (test code = CA) mg/dL 8.5-10.1 DAVKFP2591-83-11 22:44:00* Test Item Value Reference Range Interpretation Comments GLUBED (test code = GLUBED) 364 mg/dL 74-106 H Performed by certified pick up operator at [facility] BASIC METABOLIC MQVEE6808-70-51 17:43:00* Test Item Value Reference Range Interpretation [...] CA) 9.9 mg/dL 8.5-10.1 N HEPATIC FUNCTION [id number] 17:43:00* Test Item Value Reference Range Interpretation [...] reference range due to change in reagent. [id number] 17:43:00* Test Item Value Reference Range Interpretation Comments LIPASE (test code = LIP) 18 U/L 73.0-393.0 L BASIC METABOLIC TCWIO4401-37-83 17:22:00* Test Item Value Reference Range Interpretation [...] code = CA) mg/dL 8.5-10.1 HEPATIC FUNCTION [id number] 17:22:00* Test Item Value Reference Range Interpretation [...] TOTAL (test code = ALKP) IUnit/L 45-117 BYJTLZ4629-92-87 17:22:00* Test Item Value Reference Range Interpretation Comments LIPASE (test code = LIP) U/L 73.0-393.0 URINALYSIS YNRXMCNH8385-16-80 17:00:00* Test Item Value Reference Range Interpretation [...] BLOOD DIPSTICK (test code = JAONNE) Negative mg/dL NEGATIVE UA PH DIPSTICK (test [...] FEW #/LPF FEW Urine Source? Clean CatchURINALYSIS HZTLGAUJ2563-22-91 16:55:00* Test Item Value Reference Range Interpretation [...] HPF NONE Urine Source? Clean CatchCBC W/O QCAA6049-87-34 16:40:00* Test Item Value Reference Range Interpretation [...] MPV) 10.7 fL 6.7-11.0 N CBC W/O [id number] 16:37:00* Test Item Value Reference Range Interpretation [...] (test code = MPV) fL 6.7-11.0 Bedside Nicwacf7102-50-56 08:08:00* Test Item Value Reference Range Interpretation Comments Bedside Glucose (test code = 60521-9) 217 70-120 H Meter ID: [id number] Glucose 2018-07-07 08:08:00* Test Item Value Reference Range Interpretation Comments Bedside Glucose (test code = 42378-6) 217 70-120 H Meter ID: [id number] Glucose 2018-07-07 08:08:00* Test Item Value Reference Range Interpretation Comments Bedside Glucose (test code = 80866-1) 217 70-120 H Meter ID: [id number] Regional Healthcare Systemesium Level 2018-07-07 06:31:00* Test Item Value Reference Range Interpretation Comments Magnesium Level (test code = 75419-8) 1.4 1.3-2.1 [facility] Bhzyz7429-00-09 06:31:00* Test Item Value Reference Range Interpretation Comments Magnesium Level (test code = 17844-1) 1.4 1.3-2.1 [facility] BudaMagnesium Opwqy3968-30-73 06:31:00* Test Item Value Reference Range Interpretation Comments Magnesium Level (test code = 94151-3) 1.4 1.3-2.1 [facility] BudaMagnesium Puuvy3189-79-28 06:31:00* Test Item Value Reference Range Interpretation Comments Magnesium Level (test code = 37473-7) 1.4 1.3-2.1 [facility] Longviewodium Lyfnc9374-39-18 06:27:00* Test Item Value Reference Range Interpretation Comments Sodium Level (test code = 2951-2) 137 136-145 [facility] BudaPotassium Clfyv1648-03-19 06:27:00* Test Item Value Reference Range Interpretation Comments Potassium Level (test code = 2823-3) 2.7 3.5-5.1 LL Results repeated and called to [place] at 0624 on 07/07/18 by Lisa henry Read back and verified.[facility] BudaChloride Level 2018-07-07 06:27:00* Test Item Value Reference Range Interpretation Comments Chloride Level (test code = 2075-0) 96 98-107 L [facility] BudaCarbon Dioxide Nkmri2702-82-92 06:27:00* Test Item Value Reference Range Interpretation Comments Carbon Dioxide Level (test code = 2028-9) 32 22-29 H [facility] BudaAnion Spq7032-07-15 06:27:00* Test Item Value Reference Range Interpretation Comments Anion Gap (test code = 85278-7) 11.7 8-16 [facility] BudaBlood Urea Imrjdtng7585-55-71 06:27:00* Test Item Value Reference Range Interpretation Comments Blood Urea Nitrogen (test code = 3094-0) 6 7-26 L [facility] BudaCreatinine2019-04-10 06:27:00* Test Item Value Reference Range Interpretation Comments Creatinine (test code = 2160-0) 0.85 0.72-1.25 [facility] BudaBUN/Creatinine Oraqf8021-43-10 06:27:00* Test Item Value Reference Range Interpretation Comments BUN/Creatinine Ratio (test code = 3097-3) 7 6-25 [facility] BudaEstimat Glomerular Filtration Rate 2018-07-07 06:27:00* Test Item Value Reference Range Interpretation Comments Estimat Glomerular Filtration Rate (test code = 334194533) > 60 >60 Ranges were taken from the National Kidney Disease Education Program and the [facility] Kidney Foundation literature.Reference ranges:60 or greater: Vbhple34-37 ( for 3 consecutive months): Chronic kidney disease 15 or less: Kidney failureBaylor Scott & White Medical Center – BudaGlucose Rgxoc1283-30-62 06:27:00* Test Item Value Reference Range Interpretation Comments Glucose Level (test code = CXP0002) 136 74-118 H [facility] BudaCalcium Daccj1250-62-19 06:27:00* Test Item Value Reference Range Interpretation Comments Calcium Level (test code = 46875-0) 8.4 8.4-10.2 [facility] BudaTotal Aeucvflmb4305-68-09 06:27:00* Test Item Value Reference Range Interpretation Comments Total Bilirubin (test code = 1975-2) 0.5 0.2-1.2 [facility] BudaAspartate Amino Transf (AST/SGOT) 2018-07-07 06:27:00* Test Item Value Reference Range Interpretation Comments Aspartate Amino Transf (AST/SGOT) (test code = Aspartate Amino Transf (AST/SGOT)) 12 5-34 [facility] BudaAlanine Aminotransferase (ALT/SGPT) 2018-07-07 06:27:00* Test Item Value Reference Range Interpretation Comments Alanine Aminotransferase (ALT/SGPT) (test code = 1742-6) < 6 0-55 [facility] BudaTotal Dofvfdr0770-43-25 06:27:00* Test Item Value Reference Range Interpretation Comments Total Protein (test code = 2885-2) 5.8 6.5-8.1 L [facility] BudaAlbumin2019-04-10 06:27:00* Test Item Value Reference Range Interpretation Comments Albumin (test code = 1751-7) 3.1 3.5-5.0 L [facility] BudaGlobulin2019-04-10 06:27:00* Test Item Value Reference Range Interpretation Comments Globulin (test code = 89267-7) 2.7 2.3-3.5 [facility] BudaAlbumin/Globulin Jrapx0692-15-98 06:27:00 * Test Item Value Reference Range Interpretation Comments Albumin/Globulin Ratio (test code = 1759-0) 1.1 0.8-2.0 [facility] BudaAlkaline Qmficfosyyf5895-90-65 06:27:00* Test Item Value Reference Range Interpretation Comments Alkaline Phosphatase (test code = 6768-6) 68 40-150 [facility] Longviewodium Zugxx2463-87-43 06:27:00* Test Item Value Reference Range Interpretation Comments Sodium Level (test code = 2951-2) 137 136-145 [facility] BudaPotassium Ihtjd1810-96-12 06:27:00* Test Item Value Reference Range Interpretation Comments Potassium Level (test code = 2823-3) 2.7 3.5-5.1 LL Results repeated and called to [place] at 0624 on 07/07/18 by Lisa henry Read back and verified.[facility] BudaChloride Level 2018-07-07 06:27:00* Test Item Value Reference Range Interpretation Comments Chloride Level (test code = 2075-0) 96 98-107 L [facility] BudaCarbon Dioxide Gzddm1992-21-74 06:27:00* Test Item Value Reference Range Interpretation Comments Carbon Dioxide Level (test code = 2028-9) 32 22-29 H [facility] BudaAnion Zep3674-95-00 06:27:00* Test Item Value Reference Range Interpretation Comments Anion Gap (test code = 62521-2) 11.7 8-16 [facility] BudaBlood Urea Kgibhync1268-65-12 06:27:00* Test Item Value Reference Range Interpretation Comments Blood Urea Nitrogen (test code = 3094-0) 6 7-26 L [facility] BudaCreatinine2019-04-10 06:27:00* Test Item Value Reference Range Interpretation Comments Creatinine (test code = 2160-0) 0.85 0.72-1.25 [facility] BudaBUN/Creatinine Igveg8032-33-18 06:27:00* Test Item Value Reference Range Interpretation Comments BUN/Creatinine Ratio (test code = 3097-3) 7 6-25 [facility] BudaEstimat Glomerular Filtration Rate 2018-07-07 06:27:00* Test Item Value Reference Range Interpretation Comments Estimat Glomerular Filtration Rate (test code = 589812102) > 60 >60 Ranges were taken from the National Kidney Disease Education Program and the [facility] Kidney Foundation literature.Reference ranges:60 or greater: Nhjtyi51-52 ( for 3 consecutive months): Chronic kidney disease 15 or less: Kidney failureBaylor Scott & White Medical Center – BudaGlucose Tqitf8658-28-42 06:27:00* Test Item Value Reference Range Interpretation Comments Glucose Level (test code = NQN6256) 136 74-118 H [facility] BudaCalcium Sztge6339-72-47 06:27:00* Test Item Value Reference Range Interpretation Comments Calcium Level (test code = 73216-8) 8.4 8.4-10.2 [facility] BudaTotal Mdcxzoogs4096-90-59 06:27:00* Test Item Value Reference Range Interpretation Comments Total Bilirubin (test code = 1975-2) 0.5 0.2-1.2 [facility] BudaAspartate Amino Transf (AST/SGOT) 2018-07-07 06:27:00* Test Item Value Reference Range Interpretation Comments Aspartate Amino Transf (AST/SGOT) (test code = Aspartate Amino Transf (AST/SGOT)) 12 5-34 [facility] BudaAlanine Aminotransferase (ALT/SGPT) 2018-07-07 06:27:00* Test Item Value Reference Range Interpretation Comments Alanine Aminotransferase (ALT/SGPT) (test code = 1742-6) < 6 0-55 [facility] BudaTotal Fcymoml4897-15-25 06:27:00* Test Item Value Reference Range Interpretation Comments Total Protein (test code = 2885-2) 5.8 6.5-8.1 L [facility] BudaAlbumin2019-04-10 06:27:00* Test Item Value Reference Range Interpretation Comments Albumin (test code = 1751-7) 3.1 3.5-5.0 L [facility] BudaGlobulin2019-04-10 06:27:00* Test Item Value Reference Range Interpretation Comments Globulin (test code = 80372-6) 2.7 2.3-3.5 [facility] BudaAlbumin/Globulin Flcmh8163-57-09 06:27:00 * Test Item Value Reference Range Interpretation Comments Albumin/Globulin Ratio (test code = 1759-0) 1.1 0.8-2.0 [facility] BudaAlkaline Xgdtwhoqxta7080-22-24 06:27:00* Test Item Value Reference Range Interpretation Comments Alkaline Phosphatase (test code = 6768-6) 68 40-150 [facility] Longviewodium Vixzu3080-12-51 06:27:00* Test Item Value Reference Range Interpretation Comments Sodium Level (test code = 2951-2) 137 136-145 [facility] BudaPotassium [id number] 06:27:00* Test Item Value Reference Range Interpretation Comments Potassium Level (test code = 2823-3) 2.7 3.5-5.1 LL Results repeated and called to Cande Villela at 0624 on 07/07/18 by Lsia henry Read back and verified.[facility] BudaChloride Level 2018-07-07 06:27:00* Test Item Value Reference Range Interpretation Comments Chloride Level (test code = 2075-0) 96 98-107 L [facility] BudaCarbon Dioxide Ehppg8719-31-47 06:27:00* Test Item Value Reference Range Interpretation Comments Carbon Dioxide Level (test code = 2028-9) 32 22-29 H [facility] BudaAnion [id number] 06:27:00* Test Item Value Reference Range Interpretation Comments Anion Gap (test code = 02927-0) 11.7 8-16 [facility] BudaBlood Urea Tnwbguxw2190-48-40 06:27:00* Test Item Value Reference Range Interpretation Comments Blood Urea Nitrogen (test code = 3094-0) 6 7-26 L [facility] BudaCreatinine2019-04-10 06:27:00* Test Item Value Reference Range Interpretation Comments Creatinine (test code = 2160-0) 0.85 0.72-1.25 [facility] BudaBUN/Creatinine Fpcob4960-92-28 06:27:00* Test Item Value Reference Range Interpretation Comments BUN/Creatinine Ratio (test code = 3097-3) 7 6-25 [facility] BudaEstimat Glomerular Filtration Rate 2018-07-07 06:27:00* Test Item Value Reference Range Interpretation Comments Estimat Glomerular Filtration Rate (test code = 365733830) > 60 >60 Ranges were taken from the National Kidney Disease Education Program and the [facility] Kidney Foundation literature.Reference ranges:60 or greater: Hgmkou42-90 ( for 3 consecutive months): Chronic kidney disease 15 or less: Kidney failureBaylor Scott & [facility] – BudaGlucose Uvauo1558-05-43 06:27:00* Test Item Value Reference Range Interpretation Comments Glucose Level (test code = EFH1564) 136 74-118 H [facility] BudaCalcium Dpwdk9549-23-59 06:27:00* Test Item Value Reference Range Interpretation Comments Calcium Level (test code = 94311-6) 8.4 8.4-10.2 [facility] BudaTotal Iwcixuxrw8423-63-31 06:27:00* Test Item Value Reference Range Interpretation Comments Total Bilirubin (test code = 1975-2) 0.5 0.2-1.2 [facility] BudaAspartate Amino Transf (AST/SGOT) 2018-07-07 06:27:00* Test Item Value Reference Range Interpretation Comments Aspartate Amino Transf (AST/SGOT) (test code = Aspartate Amino Transf (AST/SGOT)) 12 5-34 [facility] BudaAlanine Aminotransferase (ALT/SGPT) 2018-07-07 06:27:00* Test Item Value Reference Range Interpretation Comments Alanine Aminotransferase (ALT/SGPT) (test code = 1742-6) < 6 0-55 [facility] BudaTotal Fxqgcew2522-11-42 06:27:00* Test Item Value Reference Range Interpretation Comments Total Protein (test code = 2885-2) 5.8 6.5-8.1 L [facility] BudaAlbumin2019-04-10 06:27:00* Test Item Value Reference Range Interpretation Comments Albumin (test code = 1751-7) 3.1 3.5-5.0 L [facility] BudaGlobulin2019-04-10 06:27:00* Test Item Value Reference Range Interpretation Comments Globulin (test code = 71492-5) 2.7 2.3-3.5 [facility] BudaAlbumin/Globulin Pmafm6447-02-16 06:27:00 * Test Item Value Reference Range Interpretation Comments Albumin/Globulin Ratio (test code = 1759-0) 1.1 0.8-2.0 [facility] BudaAlkaline Sqcqtfauufw8714-08-86 06:27:00* Test Item Value Reference Range Interpretation Comments Alkaline Phosphatase (test code = 6768-6) 68 40-150 [facility] BudaTotal Jmxrpvzrg9938-23-67 06:27:00* Test Item Value Reference Range Interpretation Comments Total Bilirubin (test code = 1975-2) 0.5 0.2-1.2 [facility] BudaAspartate Amino Transf (AST/SGOT) 2018-07-07 06:27:00* Test Item Value Reference Range Interpretation Comments Aspartate Amino Transf (AST/SGOT) (test code = Aspartate Amino Transf (AST/SGOT)) 12 5-34 [facility] BudaAlanine Aminotransferase (ALT/SGPT) 2018-07-07 06:27:00* Test Item Value Reference Range Interpretation Comments Alanine Aminotransferase (ALT/SGPT) (test code = 1742-6) < 6 0-55 [facility] Qfwasdv4275-35-34 06:27:00* Test Item Value Reference Range Interpretation Comments Total Protein (test code = 2885-2) 5.8 6.5-8.1 L [facility] BudaAlbumin2019-04-10 06:27:00* Test Item Value Reference Range Interpretation Comments Albumin (test code = 1751-7) 3.1 3.5-5.0 L [facility] BudaGlobulin2019-04-10 06:27:00* Test Item Value Reference Range Interpretation Comments Globulin (test code = 26473-2) 2.7 2.3-3.5 [facility] BudaAlbumin/Globulin Ecxse6623-22-40 06:27:00 * Test Item Value Reference Range Interpretation Comments Albumin/Globulin Ratio (test code = 1759-0) 1.1 0.8-2.0 [facility] BudaAlkaline Kpwtblpbrid3716-34-65 06:27:00* Test Item Value Reference Range Interpretation Comments Alkaline Phosphatase (test code = 6768-6) 68 40-150 [facility] BudaTotal Twfvnxvpl6597-77-27 06:27:00* Test Item Value Reference Range Interpretation Comments Total Bilirubin (test code = 1975-2) 0.5 0.2-1.2 [facility] BudaAspartate Amino Transf (AST/SGOT) 2018-07-07 06:27:00* Test Item Value Reference Range Interpretation Comments Aspartate Amino Transf (AST/SGOT) (test code = Aspartate Amino Transf (AST/SGOT)) 12 5-34 [facility] BudaAlanine Aminotransferase (ALT/SGPT) 2018-07-07 06:27:00* Test Item Value Reference Range Interpretation Comments Alanine Aminotransferase (ALT/SGPT) (test code = 1742-6) < 6 0-55 [facility] BudaTotal Yuczinr3451-52-94 06:27:00* Test Item Value Reference Range Interpretation Comments Total Protein (test code = 2885-2) 5.8 6.5-8.1 L [facility] BudaAlbumin2019-04-10 06:27:00* Test Item Value Reference Range Interpretation Comments Albumin (test code = 1751-7) 3.1 3.5-5.0 L [facility] BudaGlobulin2019-04-10 06:27:00* Test Item Value Reference Range Interpretation Comments Globulin (test code = 73524-8) 2.7 2.3-3.5 [facility] BudaAlbumin/Globulin Tqadf2764-85-49 06:27:00 * Test Item Value Reference Range Interpretation Comments Albumin/Globulin Ratio (test code = 1759-0) 1.1 0.8-2.0 [facility] BudaAlkaline Edgzaotaxhk1581-40-20 06:27:00* Test Item Value Reference Range Interpretation Comments Alkaline Phosphatase (test code = 6768-6) 68 40-150 [facility] BudaTotal Ttmxfdutg8881-34-38 06:27:00* Test Item Value Reference Range Interpretation Comments Total Bilirubin (test code = 1975-2) 0.5 0.2-1.2 [facility] BudaAspartate Amino Transf (AST/SGOT) 2018-07-07 06:27:00* Test Item Value Reference Range Interpretation Comments Aspartate Amino Transf (AST/SGOT) (test code = Aspartate Amino Transf (AST/SGOT)) 12 5-34 [facility] BudaAlanine Aminotransferase (ALT/SGPT) 2018-07-07 06:27:00* Test Item Value Reference Range Interpretation Comments Alanine Aminotransferase (ALT/SGPT) (test code = 1742-6) < 6 0-55 [facility]udaTomountain [facility] Tjcrjwq3080-23-84 06:27:00* Test Item Value Reference Range Interpretation Comments Total Protein (test code = 2885-2) 5.8 6.5-8.1 L [facility] BudaAlbumin2019-04-10 06:27:00* Test Item Value Reference Range Interpretation Comments Albumin (test code = 1751-7) 3.1 3.5-5.0 L [facility] BudaGlobulin2019-04-10 06:27:00* Test Item Value Reference Range Interpretation Comments Globulin (test code = 75841-1) 2.7 2.3-3.5 [facility] BudaAlbumin/Globulin Rucoa7560-92-63 06:27:00 * Test Item Value Reference Range Interpretation Comments Albumin/Globulin Ratio (test code = 1759-0) 1.1 0.8-2.0 [facility] BudaAlkaline Fdrmohoyvnn4477-07-10 06:27:00* Test Item Value Reference Range Interpretation Comments Alkaline Phosphatase (test code = 6768-6) 68 40-150 [facility] BudaWhite Blood Yrkyc4050-56-15 05:57:00* Test Item Value Reference Range Interpretation Comments White Blood Count (test code = 6690-2) 7.71 4.8-10.8 [facility] BudaRed Blood Pwhch9754-82-09 05:57:00* Test Item Value Reference Range Interpretation Comments Red Blood Count (test code = 789-8) 3.90 4.3-5.7 L [facility] BudaHemoglobin2019-04-10 05:57:00* Test Item Value Reference Range Interpretation Comments Hemoglobin (test code = 77159-4) 11.2 14.0-18.0 L [facility] BudaHematocrit2019-04-10 05:57:00* Test Item Value Reference Range Interpretation Comments Hematocrit (test code = 4544-3) 33.8 38.2-49.6 L [facility] BudaMean Corpuscular Ggagbi6088-35-68 05:57:00* Test Item Value Reference Range Interpretation Comments Mean Corpuscular Volume (test code = 787-2) 86.7 81-99 [facility] BudaMean Corpuscular Kzbzggtxec7104-93-39 05:57:00* Test Item Value Reference Range Interpretation Comments Mean Corpuscular Hemoglobin (test code = 785-6) 28.7 28-32 [facility] BudaMean Corpuscular Hemoglobin Concent 2018-07-07 05:57:00* Test Item Value Reference Range Interpretation Comments Mean Corpuscular Hemoglobin Concent (test code = 786-4) 33.1 31-35 [facility] BudaRed Cell Distribution Uezqn4878-50-71 05:57:00* Test Item Value Reference Range Interpretation Comments Red Cell Distribution Width (test code = 52579-1) 13.2 11.7 -14.4 [facility] BudaPlatelet Fqkgs3652-54-69 05:57:00* Test Item Value Reference Range Interpretation Comments Platelet Count (test code = 777-3) 182 140-360 [facility] BudaNeutrophils (%) (Auto)2018-07-07 05:57:00 * Test Item Value Reference Range Interpretation Comments Neutrophils (%) (Auto) (test code = 98982-9) 54.0 38.7-80.0 [facility] BudaLymphocytes (%) (Auto)2018-07-07 05:57:00 * Test Item Value Reference Range Interpretation Comments Lymphocytes (%) (Auto) (test code = 736-9) 20.6 18.0-39.1 [facility] BudaMonocytes (%) (Auto)2018-07-07 05:57:00* Test Item Value Reference Range Interpretation Comments Monocytes (%) (Auto) (test code = 5905-5) 19.5 4.4-11.3 H [facility] BudaEosinophils (%) (Auto)2018-07-07 05:57:00 * Test Item Value Reference Range Interpretation Comments Eosinophils (%) (Auto) (test code = 713-8) 5.3 0.0-6.0 [facility] BudaBasophils (%) (Auto)2018-07-07 05:57:00* Test Item Value Reference Range Interpretation Comments Basophils (%) (Auto) (test code = 706-2) 0.5 0.0-1.0 [facility] BudaIM GRANULOCYTES %2018-07-07 05:57:00* Test Item Value Reference Range Interpretation Comments IM GRANULOCYTES % (test code = IM GRANULOCYTES %) 0.1 0.0- 1.0 [facility] BudaNeutrophils # (Auto)2018-07-07 05:57:00* Test Item Value Reference Range Interpretation Comments Neutrophils # (Auto) (test code = 751-8) 4.2 2.1-6.9 [facility] BudaLymphocytes # (Auto)2018-07-07 05:57:00* Test Item Value Reference Range Interpretation Comments Lymphocytes # (Auto) (test code = 97357-2) 1.6 1.0-3.2 [facility] BudaMonocytes # (Auto)2018-07-07 05:57:00* Test Item Value Reference Range Interpretation Comments Monocytes # (Auto) (test code = 742-7) 1.5 0.2-0.8 H [facility] BudaEosinophils # (Auto)2018-07-07 05:57:00* Test Item Value Reference Range Interpretation Comments Eosinophils # (Auto) (test code = 711-2) 0.4 0.0-0.4 [facility] BudaBasophils # (Auto)2018-07-07 05:57:00* Test Item Value Reference Range Interpretation Comments Basophils # (Auto) (test code = 704-7) 0.0 0.0-0.1 [facility] BudaAbsolute Immature Granulocyte (auto 2018-07-07 05:57:00* Test Item Value Reference Range Interpretation Comments Absolute Immature Granulocyte (auto (zeenat t code = Absolute Immature Granulocyte (auto) 0.01 0-0.1 [facility] BudaWhite Blood Yjtif1892-64-14 05:57:00* Test Item Value Reference Range Interpretation Comments White Blood Count (test code = 6690-2) 7.71 4.8-10.8 [facility] BudaRed Blood Dptkz0907-01-12 05:57:00* Test Item Value Reference Range Interpretation Comments Red Blood Count (test code = 789-8) 3.90 4.3-5.7 L [facility] BudaHemoglobin2019-04-10 05:57:00* Test Item Value Reference Range Interpretation Comments Hemoglobin (test code = 87657-0) 11.2 14.0-18.0 L [facility] BudaHematocrit2019-04-10 05:57:00* Test Item Value Reference Range Interpretation Comments Hematocrit (test code = 4544-3) 33.8 38.2-49.6 L [facility] BudaMean Corpuscular Uszidw6406-91-12 05:57:00* Test Item Value Reference Range Interpretation Comments Mean Corpuscular Volume (test code = 787-2) 86.7 81-99 [facility] BudaMean Corpuscular Grmnlkzigd1089-80-91 05:57:00* Test Item Value Reference Range Interpretation Comments Mean Corpuscular Hemoglobin (test code = 785-6) 28.7 28-32 [facility] BudaMean Corpuscular Hemoglobin Concent 2018-07-07 05:57:00* Test Item Value Reference Range Interpretation Comments Mean Corpuscular Hemoglobin Concent (test code = 786-4) 33.1 31-35 [facility] BudaRed Cell Distribution Sbbds4552-00-53 05:57:00* Test Item Value Reference Range Interpretation Comments Red Cell Distribution Width (test code = 83918-2) 13.2 11.7 -14.4 [facility] BudaPlatelet Kdbkh4069-64-39 05:57:00* Test Item Value Reference Range Interpretation Comments Platelet Count (test code = 777-3) 182 140-360 [facility] BudaNeutrophils (%) (Auto)2018-07-07 05:57:00 * Test Item Value Reference Range Interpretation Comments Neutrophils (%) (Auto) (test code = 50560-0) 54.0 38.7-80.0 [facility] BudaLymphocytes (%) (Auto)2018-07-07 05:57:00 * Test Item Value Reference Range Interpretation Comments Lymphocytes (%) (Auto) (test code = 736-9) 20.6 18.0-39.1 [facility] BudaMonocytes (%) (Auto)2018-07-07 05:57:00* Test Item Value Reference Range Interpretation Comments Monocytes (%) (Auto) (test code = 5905-5) 19.5 4.4-11.3 H [facility] BudaEosinophils (%) (Auto)2018-07-07 05:57:00 * Test Item Value Reference Range Interpretation Comments Eosinophils (%) (Auto) (test code = 713-8) 5.3 0.0-6.0 [facility] BudaBasophils (%) (Auto)2018-07-07 05:57:00* Test Item Value Reference Range Interpretation Comments Basophils (%) (Auto) (test code = 706-2) 0.5 0.0-1.0 [facility] BudaIM GRANULOCYTES %2018-07-07 05:57:00* Test Item Value Reference Range Interpretation Comments IM GRANULOCYTES % (test code = IM GRANULOCYTES %) 0.1 0.0- 1.0 [facility] BudaNeutrophils # (Auto)2018-07-07 05:57:00* Test Item Value Reference Range Interpretation Comments Neutrophils # (Auto) (test code = 751-8) 4.2 2.1-6.9 [facility] BudaLymphocytes # (Auto)2018-07-07 05:57:00* Test Item Value Reference Range Interpretation Comments Lymphocytes # (Auto) (test code = 77775-5) 1.6 1.0-3.2 [facility] BudaMonocytes # (Auto)2018-07-07 05:57:00* Test Item Value Reference Range Interpretation Comments Monocytes # (Auto) (test code = 742-7) 1.5 0.2-0.8 H [facility] BudaEosinophils # (Auto)2018-07-07 05:57:00* Test Item Value Reference Range Interpretation Comments Eosinophils # (Auto) (test code = 711-2) 0.4 0.0-0.4 [facility] BudaBasophils # (Auto)2018-07-07 05:57:00* Test Item Value Reference Range Interpretation Comments Basophils # (Auto) (test code = 704-7) 0.0 0.0-0.1 [facility] BudaAbsolute Immature Granulocyte (auto 2018-07-07 05:57:00* Test Item Value Reference Range Interpretation Comments Absolute Immature Granulocyte (auto (zeenat t code = Absolute Immature Granulocyte (auto) 0.01 0-0.1 [facility] BudaWhite Blood Gghij2565-44-68 05:57:00* Test Item Value Reference Range Interpretation Comments White Blood Count (test code = 6690-2) 7.71 4.8-10.8 [facility] BudaRed Blood Lccnd9322-39-52 05:57:00* Test Item Value Reference Range Interpretation Comments Red Blood Count (test code = 789-8) 3.90 4.3-5.7 L [facility] BudaHemoglobin2019-04-10 05:57:00* Test Item Value Reference Range Interpretation Comments Hemoglobin (test code = 28975-9) 11.2 14.0-18.0 L [facility] BudaHematocrit2019-04-10 05:57:00* Test Item Value Reference Range Interpretation Comments Hematocrit (test code = 4544-3) 33.8 38.2-49.6 L [facility] BudaMean Corpuscular Mewpdc4063-69-74 05:57:00* Test Item Value Reference Range Interpretation Comments Mean Corpuscular Volume (test code = 787-2) 86.7 81-99 [facility] BudaMean Corpuscular Wtufjxfkca1134-97-49 05:57:00* Test Item Value Reference Range Interpretation Comments Mean Corpuscular Hemoglobin (test code = 785-6) 28.7 28-32 [facility] BudaMean Corpuscular Hemoglobin Concent 2018-07-07 05:57:00* Test Item Value Reference Range Interpretation Comments Mean Corpuscular Hemoglobin Concent (test code = 786-4) 33.1 31-35 [facility] BudaRed Cell Distribution Yidcw8894-91-07 05:57:00* Test Item Value Reference Range Interpretation Comments Red Cell Distribution Width (test code = 79826-8) 13.2 11.7 -14.4 [facility] BudaPlatelet Rmqkn2323-06-48 05:57:00* Test Item Value Reference Range Interpretation Comments Platelet Count (test code = 777-3) 182 140-360 [facility] BudaNeutrophils (%) (Auto)2018-07-07 05:57:00 * Test Item Value Reference Range Interpretation Comments Neutrophils (%) (Auto) (test code = 74423-1) 54.0 38.7-80.0 [facility] BudaLymphocytes (%) (Auto)2018-07-07 05:57:00 * Test Item Value Reference Range Interpretation Comments Lymphocytes (%) (Auto) (test code = 736-9) 20.6 18.0-39.1 [facility] BudaMonocytes (%) (Auto)2018-07-07 05:57:00* Test Item Value Reference Range Interpretation Comments Monocytes (%) (Auto) (test code = 5905-5) 19.5 4.4-11.3 H [facility] BudaEosinophils (%) (Auto)2018-07-07 05:57:00 * Test Item Value Reference Range Interpretation Comments Eosinophils (%) (Auto) (test code = 713-8) 5.3 0.0-6.0 [facility] BudaBasophils (%) (Auto)2018-07-07 05:57:00* Test Item Value Reference Range Interpretation Comments Basophils (%) (Auto) (test code = 706-2) 0.5 0.0-1.0 [facility] BudaIM GRANULOCYTES %2018-07-07 05:57:00* Test Item Value Reference Range Interpretation Comments IM GRANULOCYTES % (test code = IM GRANULOCYTES %) 0.1 0.0- 1.0 [facility] BudaNeutrophils # (Auto)2018-07-07 05:57:00* Test Item Value Reference Range Interpretation Comments Neutrophils # (Auto) (test code = 751-8) 4.2 2.1-6.9 [facility] BudaLymphocytes # (Auto)2018-07-07 05:57:00* Test Item Value Reference Range Interpretation Comments Lymphocytes # (Auto) (test code = 51666-5) 1.6 1.0-3.2 [facility] BudaMonocytes # (Auto)2018-07-07 05:57:00* Test Item Value Reference Range Interpretation Comments Monocytes # (Auto) (test code = 742-7) 1.5 0.2-0.8 H [facility] BudaEosinophils # (Auto)2018-07-07 05:57:00* Test Item Value Reference Range Interpretation Comments Eosinophils # (Auto) (test code = 711-2) 0.4 0.0-0.4 [facility] BudaBasophils # (Auto)2018-07-07 05:57:00* Test Item Value Reference Range Interpretation Comments Basophils # (Auto) (test code = 704-7) 0.0 0.0-0.1 [facility] BudaAbsolute Immature Granulocyte (auto 2018-07-07 05:57:00* Test Item Value Reference Range Interpretation Comments Absolute Immature Granulocyte (auto (zeenat t code = Absolute Immature Granulocyte (auto) 0.01 0-0.1 [facility] BudaAmylase Vnqiu3297-65-98 04:08:00* Test Item Value Reference Range Interpretation Comments Amylase Level (test code = 1798-8) 48 25-125 [facility] BudaLipase2019-04-05 04:08:00* Test Item Value Reference Range Interpretation Comments Lipase (test code = 3040-3) < 4 8-78 L [facility] BudaAmylase Vcvpi9140-88-22 04:08:00* Test Item Value Reference Range Interpretation Comments Amylase Level (test code = 1798-8) 48 25-125 [facility] BudaAmylase Zyryr4923-84-57 04:08:00* Test Item Value Reference Range Interpretation Comments Amylase Level (test code = 1798-8) 48 25-125 [facility] BudaAmylase Dwlyz6679-36-07 04:08:00* Test Item Value Reference Range Interpretation Comments Amylase Level (test code = 1798-8) 48 25-125 [facility] BudaAmylase Ijrvd1678-27-81 04:08:00* Test Item Value Reference Range Interpretation Comments Amylase Level (test code = 1798-8) 48 25-125 [facility] BudaAmylase Gpzqc3947-71-07 04:08:00* Test Item Value Reference Range Interpretation Comments Amylase Level (test code = 1798-8) 48 25-125 [facility] BudaUrine LKX8402-39-01 01:56:00* Test Item Value Reference Range Interpretation Comments Urine WBC (test code = 5821-4) 0-5 0-5 [facility] BudaUrine LZA5083-54-77 01:56:00* Test Item Value Reference Range Interpretation Comments Urine RBC (test code = 50296-2) 0-5 0-5 [facility] Fpzwjxdr8262-90-87 01:56:00* Test Item Value Reference Range Interpretation Comments Urine Bacteria (test code = 95715-8) FEW NONE [facility] BudaUrine Epithelial Csqou3419-07-71 01:56:00 * Test Item Value Reference Range Interpretation Comments Urine Epithelial Cells (test code = 53715-1) FEW NONE [facility] Sdcfe0835-84-41 01:56:00* Test Item Value Reference Range Interpretation Comments Urine Mucus (test code = 8247-9) FEW RARE H [facility] EFR7841-50-03 01:56:00* Test Item Value Reference Range Interpretation Comments Urine WBC (test code = 5821-4) 0-5 0-5 [facility] [id number] 01:56:00* Test Item Value Reference Range Interpretation Comments Urine RBC (test code = 45096-3) 0-5 0-5 [facility] Acxhzsxh0693-58-53 01:56:00* Test Item Value Reference Range Interpretation Comments Urine Bacteria (test code = 01265-8) FEW [facility] Epithelial Lzfrp2843-60-27 01:56:00 * Test Item Value Reference Range Interpretation Comments Urine Epithelial Cells (test code = 15352-1) FEW NONE [facility] Tkfzr8712-37-75 01:56:00* Test Item Value Reference Range Interpretation Comments Urine Mucus (test code = 8247-9) FEW RARE H [facility] [id number] 01:56:00* Test Item Value Reference Range Interpretation Comments Urine WBC (test code = 5821-4) 0-5 0-5 [facility] [id number] 01:56:00* Test Item Value Reference Range Interpretation Comments Urine RBC (test code = 39229-6) 0-5 0-5 [facility] Dbcqnvtr4302-29-04 01:56:00* Test Item Value Reference Range Interpretation Comments Urine Bacteria (test code = 92176-4) FEW NONE [facility] Epithelial Njmwa5106-35-50 01:56:00 * Test Item Value Reference Range Interpretation Comments Urine Epithelial Cells (test code = 32285-3) FEW NONE [facility] Oosto0440-63-19 01:56:00* Test Item Value Reference Range Interpretation Comments Urine Mucus (test code = 8247-9) FEW RARE H [facility] Ooenv8139-42-16 01:56:00* Test Item Value Reference Range Interpretation Comments Urine Mucus (test code = 8247-9) FEW RARE H [facility] Gfgsl2375-52-80 01:56:00* Test Item Value Reference Range Interpretation Comments Urine Mucus (test code = 8247-9) FEW RARE H [facility] Gzrmy5309-35-35 01:56:00* Test Item Value Reference Range Interpretation Comments Urine Mucus (test code = 8247-9) FEW RARE H [facility] Fbrdj8304-68-82 01:47:00* Test Item Value Reference Range Interpretation Comments Urine Color (test code = 5778-6) YELLOW YELLOW [facility] Tgadyjj3575-30-07 01:47:00* Test Item Value Reference Range Interpretation Comments Urine Clarity (test code = 51119-7) CLEAR CLEAR [facility] Specific Skieghy8804-53-29 01:47:00 * Test Item Value Reference Range Interpretation Comments Urine Specific Hector (test code = 5811-5) 1.020 1.010-1.02 5 [facility] pC1665-89-05 01:47:00* Test Item Value Reference Range Interpretation Comments Urine pH (test code = 03311-9) 8 5-7 H [facility] Leukocyte Emrdsulo3255-89-86 01:47:00* Test Item Value Reference Range Interpretation Comments Urine Leukocyte Esterase (test code = 5799-2) NEGATIVE NEGATIVE [facility] Vvtksar9250-16-48 01:47:00* Test Item Value Reference Range Interpretation Comments Urine Nitrite (test code = 57622-3) NEGATIVE NEGATIVE [facility] Pfnbykz6265-65-33 01:47:00* Test Item Value Reference Range Interpretation Comments Urine Protein (test code = 5804-0) 1+ [facility]GATIVE [facility] 01:47:00* Test Item Value Reference Range Interpretation Comments Urine Glucose (UA) (test code = 2349-9) NEGATIVE NEGATIVE [facility] Nscwgnu8274-01-15 01:47:00* Test Item Value Reference Range Interpretation Comments Urine Ketones (test code = 28890-6) 2+ NEGATIVE H [facility] Etixpruzlqjs6579-41-54 01:47:00* Test Item Value Reference Range Interpretation Comments Urine Urobilinogen (test code = 38778-1) 0.2 0.2-1 [facility] Qwrkutjld5468-31-77 01:47:00* Test Item Value Reference Range Interpretation Comments Urine Bilirubin (test code = 1978-6) 1+ NEGATIVE H Confirmatory test currently unavailable. False positive results may occur.[facility] Daddr1419-57-70 01:47:00* Test Item Value Reference Range Interpretation Comments Urine Blood (test code = 39786-4) NEGATIVE NEGATIVE [facility] Irfvl3290-20-08 01:47:00* Test Item Value Reference Range Interpretation Comments Urine Color (test code = 5778-6) YELLOW YELLOW [facility] Vxxxbwu6007-99-56 01:47:00* Test Item Value Reference Range Interpretation Comments Urine Clarity (test code = 28219-4) CLEAR CLEAR [facility] Specific Kjemhsg3314-42-99 01:47:00 * Test Item Value Reference Range Interpretation Comments Urine Specific Hector (test code = 5811-5) 1.020 1.010-1.02 5 [facility] gZ3605-66-33 01:47:00* Test Item Value Reference Range Interpretation Comments Urine pH (test code = 87662-9) 8 5-7 H [facility] Leukocyte Lmnehgmm3368-81-42 01:47:00* Test Item Value Reference Range Interpretation Comments Urine Leukocyte Esterase (test code = 5799-2) NEGATIVE NEGATIVE [facility] Jclcgvo8340-75-88 01:47:00* Test Item Value Reference Range Interpretation Comments Urine Nitrite (test code = 48432-8) NEGATIVE NEGATIVE [facility] Fvvnjma3233-51-88 01:47:00* Test Item Value Reference Range Interpretation Comments Urine Protein (test code = 5804-0) 1+ NEGATIVE H [facility] Glucose (UA)2018-07-02 01:47:00* Test Item Value Reference Range Interpretation Comments Urine Glucose (UA) (test code = 2349-9) NEGATIVE NEGATIVE [facility] Ylqfjtv9216-05-05 01:47:00* Test Item Value Reference Range Interpretation Comments Urine Ketones (test code = 16747-2) 2+ NEGATIVE H [facility] Ftntcahfoeja5971-66-93 01:47:00* Test Item Value Reference Range Interpretation Comments Urine Urobilinogen (test code = 99724-0) 0.2 0.2-1 [facility] Axefzxggc2368-15-84 01:47:00* Test Item Value Reference Range Interpretation Comments Urine Bilirubin (test code = 1978-6) 1+ NEGATIVE H Confirmatory test currently unavailable. False positive results may occur.[facility] Eggfv6177-20-26 01:47:00* Test Item Value Reference Range Interpretation Comments Urine Blood (test code = 69329-2) NEGATIVE NEGATIVE [facility] Engqt1074-41-81 01:47:00* Test Item Value Reference Range Interpretation Comments Urine Color (test code = 5778-6) YELLOW YELLOW [facility] Nxsuxgb3291-99-32 01:47:00* Test Item Value Reference Range Interpretation Comments Urine Clarity (test code = 03095-7) CLEAR CLEAR [facility] Specific Bcukymc8520-16-15 01:47:00 * Test Item Value Reference Range Interpretation Comments Urine Specific Hector (test code = 5811-5) 1.020 1.010-1.02 5 [facility] eD5215-15-22 01:47:00* Test Item Value Reference Range Interpretation Comments Urine pH (test code = 16407-6) 8 5-7 H [facility] Leukocyte Zudmveln4077-51-55 01:47:00* Test Item Value Reference Range Interpretation Comments Urine Leukocyte Esterase (test code = 5799-2) NEGATIVE NEGATIVE [facility] Psplubi4446-62-13 01:47:00* Test Item Value Reference Range Interpretation Comments Urine Nitrite (test code = 22201-1) NEGATIVE NEGATIVE [facility] Mcpudpo1106-75-45 01:47:00* Test Item Value Reference Range Interpretation Comments Urine Protein (test code = 5804-0) 1+ NEGATIVE H [facility] Glucose (UA)2018-07-02 01:47:00* Test Item Value Reference Range Interpretation Comments Urine Glucose (UA) (test code = 2349-9) NEGATIVE NEGATIVE [facility] Csfpbwt5616-18-70 01:47:00* Test Item Value Reference Range Interpretation Comments Urine Ketones (test code = 80486-3) 2+ NEGATIVE H [facility] Ylxclskjvwaz5291-18-94 01:47:00* Test Item Value Reference Range Interpretation Comments Urine Urobilinogen (test code = 52158-4) 0.2 0.2-1 [facility] Ivbqobmau0417-68-86 01:47:00* Test Item Value Reference Range Interpretation Comments Urine Bilirubin (test code = 1978-6) 1+ NEGATIVE H Confirmatory test currently unavailable. False positive results may occur.[facility] Kjdiw1824-72-11 01:47:00* Test Item Value Reference Range Interpretation Comments Urine Blood (test code = 40069-2) NEGATIVE NEGATIVE [facility] TWJKSSBD2250-83-12 10:20:00 [facility] [address] [place] [address], [place] [address] Patient Name: BREE LINDSAY MR #: [id number] : [id number] Age/Sex: 42/M Req #: [id number] Adm Physician: Ordered by: TAVIA GARCIA MD Report #: [id number] Location: US Room/Bed: Procedure: [id number] U S/US ABDOMEN COMPLETE Exam Date: Exam [...] 102 3 COPY TO: TAVIA GARCIA MD UHPXPD1738-68-92 05:55:00* Test Item Value Reference Range Interpretation Comments GLUBED (test code = GLUBED) 195 mg/dL 74-106 H Performed by certified pick up operator at [facility] NNJZXT8269-19-94 17:33:00* Test Item Value Reference Range Interpretation Comments GLUBED (test code = GLUBED) 151 mg/dL 74-106 H Performed by certified pick up operator at [facility] BASIC METABOLIC DEBNF2253-71-56 15:46:00* Test Item Value Reference Range Interpretation [...] code = CA) 7.7 mg/dL 8.5-10.1 L [id number] 12:16:00* Test Item Value Reference Range Interpretation Comments GLUBED (test code = GLUBED) 136 mg/dL 74-106 H Performed by certified pick up operator at [facility] DUXGMT1688-95-68 07:53:00* Test Item Value Reference Range Interpretation Comments GLUBED (test code = GLUBED) 129 mg/dL 74-106 H Performed by certified pick up operator at [facility] COMPREHENSIVE METABOLIC XAYDJ0663-88-47 06:41:00* Test Item Value Reference Range Interpretation Comments SODIUM (test code = NA) 139 mmol/L 136-145 N POTASSIUM (test code = K) 2.7 mmol/L 3.5-5.1 Norma calderon called to [id number] by [email or web address] 05/16/18 0636Critical results verified and [...] due to change in reagent. CBC W/AUTO DZLY9963-61-97 05:31:00* Test Item Value Reference Range Interpretation [...] code = NRBC#) 0.00 K/mm3 0.0-0.1 N FPRQKB5833-55-59 20:43:00* Test Item Value Reference Range Interpretation Comments GLUBED (test code = GLUBED) 122 mg/dL 74-106 H Performed by certified pick up operator at [facility] QVCPSI8130-94-45 17:15:00* Test Item Value Reference Range Interpretation Comments GLUBED (test code = GLUBED) 145 mg/dL 74-106 H Performed by certified pick up operator at [facility] YTAWDJ7041-23-07 11:46:00* Test Item Value Reference Range Interpretation Comments GLUBED (test code = GLUBED) 228 mg/dL 74-106 H Performed by certified pick up operator at [facility] DXJLCH7232-66-37 07:49:00* Test Item Value Reference Range Interpretation Comments GLUBED (test code = GLUBED) 123 mg/dL 74-106 H Performed by certified pick up operator at [facility] COMPREHENSIVE METABOLIC GWUDM8635-79-57 07:19:00* Test Item Value Reference Range Interpretation Comments SODIUM (test code = NA) 140 mmol/L 136-145 N POTASSIUM (test code = K) 2.9 mmol/L 3.5-5.1 L Re sults called to [id number] by [email or web address] 05/15/18 0716Critical results verified and [...] due to change in reagent. CBC W/AUTO [id number] 06:20:00* Test Item Value Reference Range Interpretation [...] code = NRBC#) 0.00 K/mm3 0.0-0.1 N [id number] 21:14:00* Test Item Value Reference Range Interpretation Comments GLUBED (test code = GLUBED) 152 mg/dL 74-106 H Performed by certified pick up operator at [facility] OFALQJ9870-74-20 17:16:00* Test Item Value Reference Range Interpretation Comments GLUBED (test code = GLUBED) 140 mg/dL 74-106 H Performed by certified pick up operator at [facility] FQMSWL1298-01-66 11:55:00* Test Item Value Reference Range Interpretation Comments GLUBED (test code = GLUBED) 236 mg/dL 74-106 H Performed by certified pick up operator at [facility] COMPREHENSIVE METABOLIC DAMKR2012-08-49 08:50:00* Test Item Value Reference Range Interpretation [...] due to change in reagent. COMPREHENSIVE METABOLIC [id number] 08:38:00* Test Item Value Reference Range Interpretation [...] code = ALKP) IUnit/L 45-117 CBC W/AUTO [id number] 08:00:00* Test Item Value Reference Range Interpretation [...] DIFF REQUIRED (test code = MDIFF) NO [id number] 07:51:00* Test Item Value Reference Range Interpretation Comments GLUBED (test code = GLUBED) 210 mg/dL 74-106 H Performed by certified pick up operator at [facility] APNXXE4974-76-48 20:06:00* Test Item Value Reference Range Interpretation Comments GLUBED (test code = GLUBED) 278 mg/dL 74-106 H Performed by certified pick up operator at [facility] IFJQJW0425-55-59 16:53:00* Test Item Value Reference Range Interpretation Comments GLUBED (test code = GLUBED) 236 mg/dL 74-106 H Performed by certified pick up operator at [facility] PXNRFR0740-26-61 11:31:00* Test Item Value Reference Range Interpretation Comments GLUBED (test code = GLUBED) 269 mg/dL 74-106 H Performed by certified pick up operator at [facility] KDXUOI5018-97-23 10:39:00* Test Item Value Reference Range Interpretation Comments GLUBED (test code = GLUBED) 298 mg/dL 74-106 H Performed by certified pick up operator at [facility] COMPREHENSIVE METABOLIC [id number] 06:29:00* Test Item Value Reference Range Interpretation [...] due to change in reagent. COMPREHENSIVE METABOLIC [id number] 06:10:00* Test Item Value Reference Range Interpretation [...] code = ALKP) IUnit/L 45-117 CBC W/AUTO [id number] 05:48:00* Test Item Value Reference Range Interpretation [...] DIFF REQUIRED (test code = MDIFF) NO [id number] 20:52:00* Test Item Value Reference Range Interpretation Comments GLUBED (test code = GLUBED) 238 mg/dL 74-106 H Performed by certified pick up operator at [facility] [id number] 15:54:00* Test Item Value Reference Range Interpretation Comments GLUBED (test code = GLUBED) 199 mg/dL 74-106 H Performed by certified pick up operator at [facility] RJUMIN2690-51-30 11:51:00* Test Item Value Reference Range Interpretation Comments GLUBED (test code = GLUBED) 265 mg/dL 74-106 H Performed by certified pick up operator at [facility] [id number] 08:20:00* Test Item Value Reference Range Interpretation Comments GLYCOSYLATED HEMOGLOBIN (HA1C) (test code = GLYHGB) 10.6 % HbA1 4. 8-6.0 H ESTIMATED AVERAGE GLUCOSE (test code = EAG) 258 MG/DL COMPREHENSIVE METABOLIC [id number] 08:11:00* Test Item Value Reference Range Interpretation [...] result is a direct measurement.========= THYROID STIMULATING [id number] 08:11:00* Test Item Value Reference Range Interpretation Comments THYROID STIMULATING HORMONE (test code = TSH) 1.020 uIU/mL 0.36-3.7 4 N TSH REFERENCE RANGES: EUTHYROID: 0.35 - 4.3 mIU/mL HYPO : > 5.5 mIU/mL HYPER : < 0.35 mIU/mL COMPREHENSIVE METABOLIC [id number] 07:53:00* Test Item Value Reference Range Interpretation [...] code = LDL) mg/dL 100-129 THYROID STIMULATING [id number] 07:53:00* Test Item Value Reference Range Interpretation Comments THYROID STIMULATING HORMONE (test code = TSH) uIU/mL 0.36-3.7 4 CBC W/AUTO [id number] 07:51:00* Test Item Value Reference Range Interpretation [...] DIFF REQUIRED (test code = MDIFF) NO [id number] 07:10:00* Test Item Value Reference Range Interpretation Comments GLUBED (test code = GLUBED) 350 mg/dL 74-106 H Performed by certified pick up operator at [facility] DRUGS OF ABUSE SCREEN [id number] 06:10:00* Test Item Value Reference Range Interpretation [...] code = METHAURN) NEGATIVE <300 ng/mL URINALYSIS [id number] 05:29:00* Test Item Value Reference Range Interpretation [...] Urine Source? Clean CatchDRUGS OF ABUSE SCREEN [id number] 05:12:00* Test Item Value Reference Range Interpretation [...] METHADONE (test code = METHAURN) <300 ng/mL [id number] 20:26:00* Test Item Value Reference Range Interpretation Comments GLUBED (test code = GLUBED) 285 mg/dL 74-106 H Performed by certified pick up operator at [facility] [id number] 13:32:00* Test Item Value Reference Range Interpretation Comments GLUBED (test code = GLUBED) 159 mg/dL 74-106 H Performed by certified pick up operator at [facility] BASIC METABOLIC [id number] 09:38:00* Test Item Value Reference Range Interpretation [...] CA) 8.9 mg/dL 8.5-10.1 N HEPATIC FUNCTION [id number] 09:38:00* Test Item Value Reference Range Interpretation [...] reference range due to change in reagent. [id number] 09:38:00* Test Item Value Reference Range Interpretation Comments LIPASE (test code = LIP) 20 U/L 73.0-393.0 L BASIC METABOLIC [id number] 09:30:00* Test Item Value Reference Range Interpretation [...] code = CA) mg/dL 8.5-10.1 HEPATIC FUNCTION [id number] 09:30:00* Test Item Value Reference Range Interpretation [...] TOTAL (test code = ALKP) IUnit/L 45-117 [id number] 09:30:00* Test Item Value Reference Range Interpretation Comments LIPASE (test code = LIP) U/L 73.0-393.0 CBC W/O [id number] 09:13:00* Test Item Value Reference Range Interpretation [...] code = MPV) 10.6 fL 6.7-11.0 N [id number] 07:28:00* Test Item Value Reference Range Interpretation Comments GLUBED (test code = GLUBED) 173 mg/dL 74-106 H Performed by certified pick up operator at [facility] [id number] 20:56:00* Test Item Value Reference Range Interpretation Comments GLUBED (test code = GLUBED) 181 mg/dL 74-106 H Performed by certified pick up operator at [facility] [id number] 16:11:00* Test Item Value Reference Range Interpretation Comments GLUBED (test code = GLUBED) 245 mg/dL 74-106 H Performed by certified pick up operator at [facility] [id number] 11:55:00* Test Item Value Reference Range Interpretation Comments GLUBED (test code = GLUBED) 309 mg/dL 74-106 H Performed by certified pick up operator at [facility] [id number] 08:03:00* Test Item Value Reference Range Interpretation Comments GLUBED (test code = GLUBED) 241 mg/dL 74-106 H Performed by certified pick up operator at [facility] [id number] 00:08:00* Test Item Value Reference Range Interpretation Comments GLUBED (test code = GLUBED) 175 mg/dL 74-106 H Performed by certified pick up operator at [facility] [id number] 20:00:00* Test Item Value Reference Range Interpretation Comments GLUBED (test code = GLUBED) 167 mg/dL 74-106 H Performed by certified pick up operator at [facility] [id number] 16:45:00* Test Item Value Reference Range Interpretation Comments GLUBED (test code = GLUBED) 208 mg/dL 74-106 H Performed by certified pick up operator at [facility] [id number] 16:01:00* Test Item Value Reference Range Interpretation Comments GLUBED (test code = GLUBED) 47 mg/dL 74-106 LL [facility] [id number] 11:44:00* Test Item Value Reference Range Interpretation Comments GLUBED (test code = GLUBED) 317 mg/dL 74-106 H Performed by certified pick up operator at [facility] [id number] 08:20:00* Test Item Value Reference Range Interpretation Comments GLUBED (test code = GLUBED) 271 mg/dL 74-106 H Performed by certified pick up operator at [facility] CBC W/AUTO [id number] 05:45:00* Test Item Value Reference Range Interpretation [...] = MDIFF) NO, ONLY SCAN NEEDED DIFFERENTIAL [id number] 05:45:00* Test Item Value Reference Range Interpretation Comments STAIN ACCEPTABILITY (test code = STN ACCEPTABLE) STAIN ACCEPTABLE POLYCHROMASIA (test code = POLC) 1+ HYPOCHROMIA (test code = HYPO) 1+ PLATELET ESTIMATE (test code = PLTEST) ADEQUATE PLATELET MORPHOLOGY (test code = PLTMORPH) NORMAL CBC W/AUTO [id number] 05:08:00* Test Item Value Reference Range Interpretation [...] = MDIFF) NO, ONLY SCAN NEEDED DIFFERENTIAL [id number] 05:08:00* Test Item Value Reference Range Interpretation Comments STAIN ACCEPTABILITY (test code = STN ACCEPTABLE) CABOT RINGS (test code = CAB) MORPHOLOGY COMMENT (test code = MOC) PLATELET ESTIMATE (test code = PLTEST) PLATELET MORPHOLOGY (test code = PLTMORPH) CBC W/AUTO [id number] 05:08:00* Test Item Value Reference Range Interpretation [...] = MDIFF) NO, ONLY SCAN NEEDED DIFFERENTIAL [id number] 05:08:00* Test Item Value Reference Range Interpretation Comments STAIN ACCEPTABILITY (test code = STN ACCEPTABLE) MORPHOLOGY COMMENT (test code = MOC) PLATELET ESTIMATE (test code = PLTEST) PLATELET MORPHOLOGY (test code = PLTMORPH) CBC W/AUTO [id number] 05:08:00* Test Item Value Reference Range Interpretation [...] = MDIFF) NO, ONLY SCAN NEEDED DIFFERENTIAL [id number] 05:08:00* Test Item Value Reference Range Interpretation Comments STAIN ACCEPTABILITY (test code = STN ACCEPTABLE) MORPHOLOGY COMMENT (test code = MOC) PLATELET ESTIMATE (test code = PLTEST) PLATELET MORPHOLOGY (test code = PLTMORPH) CBC W/AUTO [id number] 05:08:00* Test Item Value Reference Range Interpretation [...] = MDIFF) NO, ONLY SCAN NEEDED DIFFERENTIAL [id number] 05:08:00* Test Item Value Reference Range Interpretation Comments STAIN ACCEPTABILITY (test code = STN ACCEPTABLE) CABOT RINGS (test code = CAB) MORPHOLOGY COMMENT (test code = MOC) PLATELET ESTIMATE (test code = PLTEST) PLATELET MORPHOLOGY (test code = PLTMORPH) COMPREHENSIVE METABOLIC [id number] 05:04:00* Test Item Value Reference Range Interpretation [...] due to change in reagent. COMPREHENSIVE METABOLIC [id number] 04:54:00* Test Item Value Reference Range Interpretation [...] TOTAL (test code = ALKP) IUnit/L 45-117 [id number] 21:00:00* Test Item Value Reference Range Interpretation Comments GLUBED (test code = GLUBED) 334 mg/dL 74-106 H Performed by certified pick up operator at [facility] [id number] 16:10:00* Test Item Value Reference Range Interpretation Comments GLUBED (test code = GLUBED) 102 mg/dL 74-106 N Performed by certified pick up operator at [facility] [id number] 15:59:00* Test Item Value Reference Range Interpretation Comments GLUBED (test code = GLUBED) 339 mg/dL 74-106 H Performed by certified pick up operator at [facility] URINALYSIS [id number] 09:47:00* Test Item Value Reference Range Interpretation [...] 0-2 #/HPF 0-5 Urine Source? Clean CatchURINALYSIS [id number] 09:46:00* Test Item Value Reference Range Interpretation [...] HPF 0-5 Urine Source? Clean CatchBASIC METABOLIC [id number] 04:02:00* Test Item Value Reference Range Interpretation [...] CA) 9.3 mg/dL 8.5-10.1 N HEPATIC FUNCTION [id number] 04:02:00* Test Item Value Reference Range Interpretation [...] reference range due to change in reagent. [id number] 04:02:00* Test Item Value Reference Range Interpretation Comments LIPASE (test code = LIP) 22 U/L 73.0-393.0 L BASIC METABOLIC [id number] 03:53:00* Test Item Value Reference Range Interpretation [...] code = CA) mg/dL 8.5-10.1 HEPATIC FUNCTION [id number] 03:53:00* Test Item Value Reference Range Interpretation [...] TOTAL (test code = ALKP) IUnit/L 45-117 [id number] 03:53:00* Test Item Value Reference Range Interpretation Comments LIPASE (test code = LIP) U/L 73.0-393.0 CBC W/O [id number] 03:46:00* Test Item Value Reference Range Interpretation [...] code = MPV) 10.9 fL 6.7-11.0 N [id number] 17:23:00 RUN DATE: 12/16/17 [facility] PAGE 1 RUN TIME: 1723 Specimen Inqui ry RUN USER: INTERFACE PATIENT: BREE LNIDSAY Perez ACCT #: [id number] LOC: [facility] U #: [id number] AGE/SX: 42/M ROOM: [facility] RE12/11/17REG DR: Olegario Diaz MD : 75 BED: A DIS: 12/13/17 STATUS: DIS IN TLOC: SPEC #: [id number] RECD: 12/14/17 STATUS: SHAHRAM LUEVANO #: [id number] HUY: 12/11/17- DR: Kvng Izaguirre MD ENTERED: 12/14/17 SP TYPE: STOMACH OTHR DR: Levi Natarajan i, MD ORDERED: GROSS COPIES TO: Kvng Izaguirre MD [address] [place], [place] [id number] Levi Lakhani MD [address], [address] [place] [address] PROCEDURES: GROSS (12/15/17-1304 ) TISSUES: 1. GASTRIC [...] DYSPLASIA NEGATIVE FOR MALIGNANCY MYA/sm D 2) 11336, 93356 CONTINUED ON NEXT PAGE RUN DATE: 12/16/17 [facility] PAGE 2 RUN TIME: 172 3 Specimen Inquiry RUN USER: INTER FACE SPEC #: :[id number] PATIENT: BREE LINDSAY #[id number] (Con tinued) MACROSCOPIC The first specimen is [...] measuring 0.2 cm each. GROSS PERFORMED AT [facility] [address] [place] [address] (p)[phone] MICROSCOPIC MICROSCOPIC PERFORMED AT [facility] All of the stains, including any controls performed, [employer]. [facility] [address] [place] [address] (p)[phone] PERFORMING SITE Diagnosis performed at: [facility], [place] [address] [place] [id number] Signed SIGNATURE ON FILE Leigh Ann Fuller 12/16/17 1723 END OF REPORT
[2019-12-11] MEDS ORDERED: FAMOTIDINE 20 MG/2 ML VIAL IV STA (17:23)
[2019-12-11] MEDS ORDERED: SODIUM CHLORIDE 0.9% 1000ML 1,000 ML IV SCH (17:30)
[2019-12-11] MEDS ORDERED: PROMETHAZINE 25MG/ NS 50ML (IV) IV ONE (17:30)
[2019-12-11 18:08] LABS: BASOPHILS # (AUTO) 0.1 (0.0-0.1); BASOPHILS % 1.2 % (0.0-1.0); EOSINOPHILS # (AUTO) 0.2 (0.0-0.4); EOSINOPHILS % 3.2 % (0.0-6.0); HEMATOCRIT 34.9 % (38.2-49.6); HEMOGLOBIN 11.1 g/dL (14.0-18.0); LYMPHOCYTES # (AUTO) 1.5 (1.0-3.2); LYMPHOCYTES % 24.7 % (18.0-39.1); MEAN CORPUSCULAR HEMOGLOBIN 29.3 pg (28-32); MEAN CORPUSCULAR HGB CONC 31.8 g/dL (31-35); MEAN CORPUSCULAR VOLUME 92.1 fL (81-99); MONOCYTES # (AUTO) 0.6 (0.2-0.8); MONOCYTES % 9.9 % (4.4-11.3); NEUTROPHILS # (AUTO) 3.6 (2.1-6.9); NEUTROPHILS % 60.7 % (38.7-80.0); PLATELET COUNT 200 x10e3/uL (140-360); RED BLOOD COUNT 3.79 x10e6/uL (4.3-5.7)
[2019-12-11] MEDS ORDERED: SODIUM CHLORIDE 0.9% 50ML 50 ML ONE (18:20)
[2019-12-11] MEDS ORDERED: PROMETHAZINE HCL (IM) 25 MG/ML VIAL IM ONE (18:20)
[2019-12-11] MEDS ORDERED: SODIUM CHLORIDE 0.9% 1000ML 1,000 ML ONE (18:20)
[2019-12-11] MEDS ORDERED: FAMOTIDINE 20 MG/2 ML VIAL IV ONE (18:21)
--- NOTE | 2019-12-11 19:28 | Emergency Department Note ---
History of Present Illnes History of Present Illness Chief Complaint: Abdominal Complaints History of Present Illness This is a 44 year old male, with a history of IDDM, hypertension, and gastroparesis with recurrent vomiting, who presents for evaluation treatment of vomiting and upper abdominal pain. Patient was last seen here on 12/06/2019 with similar symptoms, and multiple visits prior to that. Patient states that shortly after awakening this morning, he developed nausea. He had a normal bowel movement at 8 AM, and early this afternoon he began to vomit. He states that he has vomited 8 times, with the last episode occurring just prior to presentation. Patient states that he has taken Zofran, without relief, and was prescribed Phenergan tablets to last time I saw him here, but he states that he did not take them because he was nauseated. He pointed out that he does not have any Phenergan suppositories. He states that his emesis is yellow, without coffee grounds, blood, and is nonbilious. He is having his usual epigastric pain, but goes along with his vomiting. Patient states he saw Dr. Key last week, and he increased his Reglan to 20 mg 4 times a day. Patient states that he has been taking this medication, prior to vomiting. He denies any fever, chills, cough, shortness of breath, chest pain, or tightness. Historian: Patient Arrival Mode: Car Stencil Printer Required: No Onset (how long ago): hour(s) (4) Location: stomach Quality: nausea Radiation: Reports non-radiation; Denies back, Denies neck, Denies flank Severity: moderate Onset quality: sudden Duration (how long): hour(s) (4) Timing of current episode: intermittent Progression: unchanged Chronicity: recurrent Context: Denies recent surgery, Denies trauma/injury Relieving factors: none Exacerbating factors: none Associated symptoms: Reports loss of appetite, Reports nausea/vomiting; Denies cough, Denies fever/chills, Denies shortness of breath Treatments prior to arrival: other (Zofran) Risk factors: Diabetic gastroparesis Past Medical/Family History Physician Review I have reviewed the patient's past medical and family history. Any updates have been documented here. Past Medical History Recent Fever: No Clinical Suspicion of Infectio: No New/Unexplained Change in Ment: No Past Medical History: Diabetes (IDDM) Other Medical History: GASTROPORESIS Peripheral Neuropathy Past Surgical History: Cholecysctectomy Other Surgery: L-FOOT Surgery - due to infection, seeing wound care Social History Smoking Cessation: Never Smoker Counseling Performed: No Alcohol Use: Occasional Any Illegal Drug Use: No TB Exposure/Symptoms: No Physically hurt or threatened: No Family History Family history of heart diseas: No Other Last Tetanus: UNKNOWN Any Pre-Existing Lines (PICC,: No Is patient up to date on immun: No Review of Systems Review of Systems Constitutional: Denies chills, Denies fever EENTM: Reports no symptoms Cardiovascular: Denies chest pain, Denies palpitations Respiratory: Denies cough, Denies dyspnea Gastrointestinal: Reports abdominal pain (epigastric), Reports nausea, Reports vomiting; Denies constipation, Denies diarrhea Genitourinary: Denies dysuria, Denies frequency, Denies hematuria Musculoskeletal: Denies back pain, Denies neck pain Integumentary: Denies change in color, Denies rash Neurological: Denies headache Psychological: Reports no symptoms Review of other systems: All other systems negative Physical Exam Related Data Allergies: Coded Allergies: No Known Allergies (Unverified , 07/02/18) Triage Vital Signs Vital Signs Date Time Temp Pulse Resp B/P (MAP) Pulse Ox O2 Delivery O2 Flow Rate FiO2 12/11/19 16:46 98.1 100 18 179/87 100 Room Air Vital signs reviewed: Yes Physical Exam CONSTITUTIONAL Constitutional: Present well-developed, Present well-nourished; Absent distressed, Absent ill appearing HENT HENT: Present normocephalic, Present atraumatic, Present oropharynx clear/moist, Present oropharynx normal, Present nose normal HENT L/R: Present left ext ear normal, Present right ext ear normal EYES Eyes: Reports PERRL, Reports conjunctivae normal, Reports EOM normal NECK Neck: Present ROM normal, Present supple; Absent cervical adenopathy PULMONARY Pulmonary: Present effort normal, Present breath sounds normal CARDIOVASCULAR Cardiovascular: Present regular rhythm, Present heart sounds normal, Present capillary refill normal, Present normal rate; Absent murmur GASTROINTESTINAL Abdominal: Present soft, Present tender (mild epigastric ttp, no rebound or guarding;); Absent distension GENITOURINARY Genitourinary: Present exam deferred SKIN Skin: Present warm, Present dry; Absent rash MUSCULOSKELETAL Musculoskeletal: Present ROM normal NEUROLOGICAL Neurological: Present alert, Present oriented x 3, Present no gross motor or sensory deficits PSYCHOLOGICAL Psychological: Present mood/affect normal, Present judgement normal Results Laboratory Result Diagram: 12/11/19 4232 Laboratory Laboratory Tests Test 12/11/19 17:15 White Blood Count 5.98 x10e3/uL (4.8-10.8) Red Blood Count 3.79 x10e6/uL (4.3-5.7) Hemoglobin 11.1 g/dL (14.0-18.0) Hematocrit 34.9 % (38.2-49.6) Mean Corpuscular Volume 92.1 fL (81-99) Mean Corpuscular Hemoglobin 29.3 pg (28-32) Mean Corpuscular Hemoglobin Concent 31.8 g/dL (31-35) Red Cell Distribution Width 14.0 % (11.7-14.4) Platelet Count 200 x10e3/uL (140-360) Neutrophils (%) (Auto) 60.7 % (38.7-80.0) Lymphocytes (%) (Auto) 24.7 % (18.0-39.1) Monocytes (%) (Auto) 9.9 % (4.4-11.3) Eosinophils (%) (Auto) 3.2 % (0.0-6.0) Basophils (%) (Auto) 1.2 % (0.0-1.0) Neutrophils # (Auto) 3.6 (2.1-6.9) Lymphocytes # (Auto) 1.5 (1.0-3.2) Monocytes # (Auto) 0.6 (0.2-0.8) Eosinophils # (Auto) 0.2 (0.0-0.4) Basophils # (Auto) 0.1 (0.0-0.1) Absolute Immature Granulocyte (auto 0.02 x10e3/uL (0-0.1) Lab results reviewed: Yes Laboratory comments CMP - nl except for Gluc = 149; LFT - normal, including normal amylase; UA - ket - trace, blo - small; Assessment & Plan Medical Decision Making MDM - Pt had no vomiting here in the ED. abdomen is soft, labs look good, so no imaging performed. - As per previous visits, patient initially refuses to sign the consent forms, because he is sleeping in the room. I explained that I cannot treat him, unless he signs those forms, which provides consent for me to do so. - Pt slept the entire time that he was here. He only received IVF, Pepcid, and IV Phenergan. He did not ask for an pain medications. Patient Instructions: - Use the PHENERGAN SUPPOSITORIES, whenever you vomit 2 or more times. This should be utilized, prior to coming to the ER. - Recommend a CLEAR LIQUID diet, for the next 24 hours, until your symptoms resolve, then advance to a BLAND diet. - Contact Dr. Lang Torres's office on ., 12/13/2019, regarding your referral appointment with Dr. Diez, in the [facility]. (I spoke with Dr. Torres, who stated that he would make sure that this appointment is being scheduled.) 18:00 - discussed with Dr. Flores, that this is patient's 2nd visit here in less than a week, and he is here nearly on a weekly basis. Assessment & Plan Final Impression: (1) Intractable nausea and vomiting (2) Diabetic gastroparesis associated with type 2 diabetes mellitus (3) Uncontrolled hypertension (4) Epigastric pain Depart Disposition: HOME, SELF-CARE Last Vital Signs Date Time Temp Pulse Resp B/P (MAP) Pulse Ox O2 Delivery O2 Flow Rate FiO2 12/11/19 16:46 98.1 100 18 179/87 100 Room Air Home Meds Active Scripts Promethazine Hcl* (PHENERGAN SUPP*) 25 Mg Supp, 1 SUPP NM Q6H PRN for NAUSEA, #12 SUPP 0 Refills Prov:YUMIKO LYNNE MD 12/11/19 Promethazine Hcl (PROMETHAZINE HCL) 25 Mg Tablet, 25 MG PO Q6H, #20 TAB Prov:FILIBERTO ROSENTHAL MD 12/06/19 Promethazine Hcl (PROMETHAZINE HCL) 25 Mg Tablet, 25 MG PO Q6H PRN for nausea and vomiting, #20 TAB 0 Refills Prov:YUMIKO LYNNE MD 11/18/19 Promethazine Hcl (PROMETHAZINE HCL) 25 Mg Tablet, 25 MG PO Q6H PRN for nausea and vomiting, #20 TAB 0 Refills Prov:YUMIKO LYNNE MD 11/12/19 Acetaminophen With Codeine (TYLENOL WITH CODEINE #3 TABLET) 1 Each Tablet, 300 MG PO Q12H PRN for ABDOMINAL PAIN, #10 TAB Prov:MARCUS LOCAMPBELL Estrada NP 10/28/19 Promethazine Hcl (PROMETHAZINE HCL) 25 Mg Tablet, 25 MG PO Q6H for vomiting, #20 TAB Prov:FILIBERTO ROSENTHAL MD 09/21/19 Metoclopramide Hcl (REGLAN) 10 Mg Tablet, 1 TAB PO ACHS for 30 Days Before meals Prov:WALLYMARCUSJAREK M BORDER GUARD 11/25/18 Pantoprazole Sodium* (PROTONIX) 40 Mg Tablet.dr, 40 MG PO DAILY for 30 Days Prov:JAREK LO Sean MOLINA 11/25/18 Reported Medications Ondansetron Hcl (ONDANSETRON HCL) 4 Mg Tablet, 4 MG SL Q6H PRN for NAUSEA 07/02/18 Insulin Glargine (LANTUS 3ML PEN) 100 Units/1 Ml Inj, 15 UNITS SQ HS 07/02/18 Lisinopril (LISINOPRIL) 5 Mg Tablet, 5 MG PO DAILY 07/02/18 Insulin Aspart (NOVOLOG) 100 Units/1 Ml Inj, 8 UNITS SQ TIDWM 07/02/18 Medications in the ED Sodium Chloride 1,000 ml @ 0 mls/hr Q0M IV Last administered on 12/11/19at 18:15; Admin Dose 999 MLS/HR; Start 12/11/19 at 17:30; Stop 01/10/20 at 17:29 Famotidine 20 mg NOW STAT IV Last administered on 12/11/19at 18:15; Admin Dose 20 MG; Start 12/11/19 at 17:23; Stop 12/11/19 at 17:26; Status DC Promethazine HCl 25 mg STK-MED ONCE IM ; Start 12/11/19 at 18:20; Stop 12/11/19 at 18:13; Status DC Sodium Chloride 50 ml @ ud STK-MED ONCE .ROUTE ; Start 12/11/19 at 18:20; Stop 12/11/19 at 18:13; Status DC Sodium Chloride 1,000 ml @ ud STK-MED ONCE .ROUTE ; Start 12/11/19 at 18:20; Stop 12/11/19 at 18:14; Status DC Famotidine 20 mg STK-MED ONCE IV ; Start 12/11/19 at 18:21; Stop 12/11/19 at 18:14; Status DC YUMIKO LYNNE MD Dec 11, 2019 19:28
[2019-12-11] MEDS ORDERED: PHENERGAN SUPP25 MG PR (19:38)
[2019-12-11 19:57] VITALS: BP 170/89
== END 2019-12-11 19:59 | disposition home or self-care (01) ==
LOC: FSED 17:08
DX: E11.43 Type 2 diabetes mellitus with diabetic autonomic (poly)neuropathy (principal); E11.65 Type 2 diabetes mellitus with hyperglycemia; R10.13 Epigastric pain; I10 Essential (primary) hypertension
CPT/HCPCS: 36415; 80076; 81003; 85025; 96374; 99283; J2550; J7030

== ENCOUNTER 2019-12-17 17:37 | Emergency (ER) | payer MEDICARE ==
[~2019-12-17] VITALS: Ht 185.4 cm; Wt 95.3 kg
[~2019-12-17 17:37] MED LIST changes: +PHENERGAN SUPP25 MG PR
[2019-12-17] MEDS ORDERED: MORPHINE SULFATE INJ 4 MG/ML INJ 1ML IV STA ×2 (17:44→18:52)
[2019-12-17] MEDS ORDERED: SODIUM CHLORIDE 0.9% 1000ML 1,000 ML IV STA (17:44)
[2019-12-17] MEDS ORDERED: PROMETHAZINE 25MG/ NS 50ML (IV) IV ONE (17:45)
[2019-12-17] MEDS ORDERED: FAMOTIDINE 20 MG/2 ML VIAL IV ONE ×3 (17:45→18:16)
[2019-12-17] MEDS ORDERED: MORPHINE SULFATE INJ 4 MG/ML INJ 1ML ONE ×2 (17:59→19:34)
[2019-12-17] MEDS ORDERED: PROMETHAZINE HCL (IM) 25 MG/ML VIAL IM ONE (17:59)
[2019-12-17] MEDS ORDERED: SODIUM CHLORIDE 0.9% 1000ML 1,000 ML ONE (18:00)
--- NOTE | 2019-12-17 18:07 | Emergency Department Note ---
History of Present Illnes History of Present Illness Chief Complaint: Abdominal Complaints History of Present Illness This is a 44 year old male hx of severe diabetic gastroparesis here for abdominal pain n/v for few days, could not tolerate fluid orally . Historian: Patient, Family Member Arrival Mode: Car Cement Side Laster Required: No Onset (how long ago): day(s) Radiation: Reports abdomen, Reports periumbilical Severity: moderate Onset quality: gradual Duration (how long): day(s) Progression: worsening Relieving factors: none Exacerbating factors: none Associated symptoms: Reports nausea/vomiting Previous service: medications given, tests performed, observation Past Medical/Family History Physician Review I have reviewed the patient's past medical and family history. Any updates have been documented here. Past Medical History Recent Fever: No Clinical Suspicion of Infectio: No New/Unexplained Change in Ment: No Past Medical History: Hypertension, Diabetes Other Medical History: GASTROPORESIS Peripheral Neuropathy MARIJUANA ABUSE Past Surgical History: Cholecysctectomy Other Surgery: L-FOOT Surgery - due to infection, seeing wound care Social History Counseling Performed: No Alcohol Use: None Any Illegal Drug Use: No Other Last Tetanus: UNKNOWN Any Pre-Existing Lines (PICC,: No Review of Systems Review of Systems Constitutional: Reports as per HPI EENTM: Reports no symptoms Cardiovascular: Reports no symptoms Respiratory: Reports no symptoms Gastrointestinal: Reports as per HPI, Reports abdominal pain, Reports nausea, Reports vomiting Genitourinary: Reports no symptoms Musculoskeletal: Reports no symptoms Integumentary: Reports no symptoms Neurological: Reports no symptoms Psychological: Reports no symptoms Endocrine: Reports no symptoms Hematological/Lymphatic: Reports no symptoms Physical Exam Related Data Allergies: Coded Allergies: No Known Allergies (Unverified , 07/02/18) Triage Vital Signs Vital Signs Date Time Temp Pulse Resp B/P (MAP) Pulse Ox O2 Delivery O2 Flow Rate FiO2 12/17/19 17:40 97.6 79 14 184/99 96 Room Air Vital signs reviewed: Yes Physical Exam CONSTITUTIONAL Constitutional: Present well-developed, Present well-nourished HENT HENT: Present normocephalic, Present atraumatic, Present oropharynx clear/moist, Present mucosae dry, Present nose normal HENT L/R: Present left ext ear normal, Present right ext ear normal EYES Eyes: Reports PERRL, Reports conjunctivae normal NECK Neck: Present ROM normal PULMONARY Pulmonary: Present effort normal, Present breath sounds normal CARDIOVASCULAR Cardiovascular: Present regular rhythm, Present heart sounds normal, Present capillary refill normal, Present normal rate GASTROINTESTINAL Abdominal: Present soft, Present bowel sounds normal, Present tender GENITOURINARY Genitourinary: Present exam deferred SKIN Skin: Present warm, Present dry MUSCULOSKELETAL Musculoskeletal: Present ROM normal NEUROLOGICAL Neurological: Present alert, Present oriented x 3, Present no gross motor or sensory deficits PSYCHOLOGICAL Psychological: Present mood/affect normal, Present judgement normal Results Laboratory Lab results reviewed: Yes Laboratory comments glucose 180, not in DKA Assessment & Plan Medical Decision Making MDM flare of diabetic gastroparesis Reassessment Reassessment time: 18:38 Reassessment doing better, declines hospital admission. Assessment & Plan Final Impression: (1) Nausea & vomiting (2) Dehydration (3) Diabetic gastroparesis associated with type 2 diabetes mellitus Depart Disposition: HOME, SELF-CARE Last Vital Signs Date Time Temp Pulse Resp B/P (MAP) Pulse Ox O2 Delivery O2 Flow Rate FiO2 12/17/19 17:40 97.6 79 14 184/99 96 Room Air Home Meds Active Scripts Promethazine Hcl* (PHENERGAN SUPP*) 25 Mg Supp, 1 SUPP CA Q6H PRN for NAUSEA, #12 SUPP 0 Refills Prov:YUMIKO LYNNE MD 12/11/19 Promethazine Hcl (PROMETHAZINE HCL) 25 Mg Tablet, 25 MG PO Q6H, #20 TAB Prov:FILIBERTO ROSENTHAL MD 12/06/19 Promethazine Hcl (PROMETHAZINE HCL) 25 Mg Tablet, 25 MG PO Q6H PRN for nausea and vomiting, #20 TAB 0 Refills Prov:YUMIKO LYNNE MD 11/18/19 Promethazine Hcl (PROMETHAZINE HCL) 25 Mg Tablet, 25 MG PO Q6H PRN for nausea and vomiting, #20 TAB 0 Refills Prov:YUMIKO LYNNE MD 11/12/19 Acetaminophen With Codeine (TYLENOL WITH CODEINE #3 TABLET) 1 Each Tablet, 300 MG PO Q12H PRN for ABDOMINAL PAIN, #10 TAB Prov:JAREK LO NP 10/28/19 Promethazine Hcl (PROMETHAZINE HCL) 25 Mg Tablet, 25 MG PO Q6H for vomiting, #20 TAB Prov:FILIBERTO ROSENTHAL MD 09/21/19 Metoclopramide Hcl (REGLAN) 10 Mg Tablet, 1 TAB PO ACHS for 30 Days Before meals Prov:JAREK LO NP 11/25/18 Pantoprazole Sodium* (PROTONIX) 40 Mg Tablet.dr, 40 MG PO DAILY for 30 Days Prov:JAREK LO NP 11/25/18 Reported Medications Ondansetron Hcl (ONDANSETRON HCL) 4 Mg Tablet, 4 MG SL Q6H PRN for NAUSEA 07/02/18 Insulin Glargine (LANTUS 3ML PEN) 100 Units/1 Ml Inj, 15 UNITS SQ HS 07/02/18 Lisinopril (LISINOPRIL) 5 Mg Tablet, 5 MG PO DAILY 07/02/18 Insulin Aspart (NOVOLOG) 100 Units/1 Ml Inj, 8 UNITS SQ TIDWM 07/02/18 Medications in the ED Morphine Sulfate 4 mg ONCE STAT IV ; Start 12/17/19 at 17:44; Stop 12/17/19 at 17:45 Famotidine 20 mg ONCE ONCE IV ; Start 12/17/19 at 17:45; Stop 12/17/19 at 17: 46; Status UNV Sodium Chloride 1,000 ml @ 0 mls/hr Q0M STAT IV ; Start 12/17/19 at 17:44; Stop 12/17/19 at 17:49; Status DC Physician Attestation Provider Attestation patient declines hospitalization TRENT FRANKLIN MD Dec 17, 2019 18:07
--- NOTE | 2019-12-17 18:16 | NUR ---
RT AC 22 G IV INFILTRATED AND REMOVED WITH NEW IV SITE RT HAND 20G
[2019-12-17] MEDS ORDERED: ONDANSETRON HCL INJ 2MG/ML 2ML 2 MG/ML VIAL IV ONE (19:00)
[2019-12-17] MEDS ORDERED: ONDANSETRON HCL INJ 2MG/ML 2ML 2 MG/ML VIAL ONE (19:33)
== END 2019-12-17 20:29 | disposition home or self-care (01) ==
LOC: FSED 17:45
DX: E11.43 Type 2 diabetes mellitus with diabetic autonomic (poly)neuropathy (principal); K31.84 Gastroparesis; R10.33 Periumbilical pain; E86.0 Dehydration; I10 Essential (primary) hypertension
CPT/HCPCS: 80053; 81003; 85025; 99283; J2270; J2405; J2550; J7030

== ENCOUNTER 2020-01-14 18:26 | Emergency (ER) | payer MEDICARE ==
[~2020-01-14] VITALS: Ht 185.4 cm; Wt 95.3 kg
--- OUTSIDE RECORDS SUMMARY | 2020-01-14 19:37 | XMS REPORT | Clinical Summary ---
Author Author [facility] Organization [facility] Address Unknown Phone Unavailable Care Team Providers Care Mix House Operator Name Role Phone Riley Rosa DO PCP Allergies No Known Active Allergies Medications End Date Status Medication Sig Dispensed Refills Start Date Active lisinopriL (PRINIVIL) 5 Take 5 mg by 0 mg tablet mouth daily. Active pantoprazole (PROTONIX) Take 40 mg by 0 40 MG EC tablet mouth 2 (two) times a day. Active dicyclomine (BENTYL) 20 Take 20 mg by 0 mg tablet mouth 3 (three) times a day. Active traMADoL (ULTRAM) 50 mg Take 50 mg by 0 tabletIndications: acute mouth 3 pain (three) times a day .acute pain. Active metoclopramide (REGLAN) Take 10 mg by 0 10 MG tablet mouth 4 (four) times a day. Active insulin ASPART (NovoLOG) Inject under 0 100 unit/mL injection the skin 3 (three) times a day before meals. Active insulin degludec (TRESIBA Inject under 0 U-100 INSULIN SUBQ) the skin. 25 units at night Active prucalopride 2 mg tablet Take 1 tablet 30 tablet 3 (2 mg total) 0 by mouth daily. Active Problems Problem Noted Date Gastroparesis 12/29/2019 Type II diabetes mellitus with peripheral autonomic n europathy 12/29/2019 Chronic constipation 12/29/2019 Encounters Care Team Description Date Type Specialty Oliverio Diez MD Gastroparesis (Primary Dx); Type II diabetes mellitus with peripheral autonomic neuropathy (HCC); Chronic constipation 12/29/2019 Telemedicine Gastroenterology 12/16/2019 Travel after 01/13/2019 Surgical History Surgery Date Site/Laterality Comments UPPER GASTROINTESTINAL ENDOSCOPY CHOLECYSTECTOMY FOOT SURGERY left Medical History Medical History Date Comments Diabetes mellitus (HCC) Gastroparesis Family History Medical History Relation Name Comments No Known Problems Father Diabetes Mother Diabetes Paternal Uncle Celiac disease Neg Hx Colon cancer Neg Hx Esophageal cancer Neg Hx Inflammatory bowel Neg Hx disease Stomach cancer Neg Hx Relation Name Status Comments Father Mother Paternal Uncle Social History Date Tobacco Use Types Packs/Day Years Used Quit: 2018 Former Smoker Smokeless Tobacco: Never Used Drinks/Week oz/Week Comments Alcohol Use Never Alcohol Habits Answer Date Recorded How often do you have a drink containing alcohol? Never 12/29/2019 How many drinks containing alcohol do you have on Not aske d 12/29/2019 a typical day when you are drinking? How often do you have six or more drinks on one Never 12/29/2019 occasion? Sex Assigned at Date Recorded Not on file Date Recorded COVID-19 Exposure Response 12/16/2019 8:10 AM CDT In the last month, have you been in contact with No / Unsure someone who was confirmed or suspected to have Coronavirus / COVID-19? Last Filed Vital Signs Reading Time Taken Comments Vital Sign - - Blood Pressure - - Pulse - - Temperature - - Respiratory Rate - - Oxygen Saturation - - Inhaled Oxygen Concentration 83 kg (183 lb) 12/29/2019 11:27 AM CDT Weight 185.4 cm (6' 1") 12/29/2019 11:27 AM CDT Height 24.14 12/29/2019 11:27 AM CDT Body Mass Index Plan of Treatment Health Maintenance Due Date Last Done Comments DIABETIC RETINAL EYE EXAM 1975 DIABETIC FOOT EXAM 11/25/1985 URINE MICROALBUMIN 11/25/1985 INFLUENZA VACCINE 10/29/2019 Results Not on fileafter 01/13/2019 Insurance Type Payer Benefit Subscriber ID Effective Phone Address Plan / Dates Group Medicare MEDICARE MEDICARE [id number] [id number] ZAFAR, PART A AND reslefty [place] B Advance Directives For more information, please contact: [phone] 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
--- OUTSIDE RECORDS SUMMARY | 2020-01-14 19:37 | XMS REPORT | Clinical Summary ---
Author Author DEM[facility] Address Unknown Phone Unavailable Care Team Providers Care Campaign Marketing Manager Name Role Phone Pcp, No PCP Unavailable [...] 0 tablet mouth 3 (three) times daily. Active Problems Problem Noted Date Gastroparesis 12/13/2018 Family History Medical History Relation Name Comments Diabetes Maternal Uncle Diabetes Mother Relation Name Status Comments Maternal Uncle Mother Social History Date Tobacco Use Types Packs/Day Years Used Never Smoker Smokeless Tobacco: Never Used Drinks/Week oz/Week Comments Alcohol Use No Alcohol Habits Answer Date Recorded How often do you have a drink containing alcohol? Never 12/13/2018 How many drinks containing alcohol do you have on No t asked a typical day when you are drinking? How often do you have six or more drinks on one Not asked occasion? Sex Assigned at Date Recorded Not on file Last Filed Vital Signs Not on file Plan of Treatment Not on file Results Not on fileafter 01/13/2019 Insurance Type Payer Benefit Subscriber ID Effective Phone Address Plan / Dates Group Medicare MEDICARE MEDICARE A [id number] 2016-P [place] [phone] Advance Directives For more information, please contact: [phone] Date Inactivated Comments Code Status Date Activated 12/15/2018 12:01 AM Full Code 12/13/2018 10:07 AM This code status was determined by: Patient
--- OUTSIDE RECORDS SUMMARY | 2020-01-14 19:42 | XMS REPORT | Continuity of Care Document ---
Author Author [facility] t Organization [facility] Address [address] [place] [address] Phone Unavailable Care Team Providers Care Educational Psychologist Name Role Phone Chao BECKMAN PCP Gregory Green MD Attphys Mary Ann LYNNE ALEISHA Attphys Unavailable ISACC JAVED Attphys Unavailable JEANNIE QUINONES MD Attphys Unavailable DAHU, S LORENRIES Attphys Unavailable NEIL PEREZ Attphys Unavailable Dasia GIBSON, Zaina Attphys GADICHERLA, MURALINATH DORETHA Attphys Unavailable TAVIA GARCIA Attphys Unavailable ISACC JAVED Admphys Unavailable DAHU, S JIRIES Admphys Unavailable GADICHERLA, MURALINATH DORETHA Admphys Unavailable Payers Payer Name Policy Type Policy Number Effective Date Expiration Date S tsering MEDICAREMEDICARE PART A AND ElaeoxxtIT930/03/2016-[place] DCM[place]are [id number] 2016 00:00:00 Zafar Schulz Medicare A & B [id number] 2019 00:00:00 [facility] Cdc Review Covid19 [id number] [facility] Problems Condition Name Condition Details Condition Category Status Onset Date Resolution Date Last Treatment Date Treating Clinician Comments Source Gastroparesis Gastroparesis Disease Active 2019-12-29 00:00:00 Zafar [facility]ucian[facility] Type II diabetes mellitus with peripheral autonomic ne uropathy Type II diabetes mellitus with peripheral autonomic neuropathy Disease Active 2019-12-29 00:00:00 Zafar ragland Chronic constipation Chronic constipation Disease Active 00:00:00 Stephen [facility] Diabetic gastroparesis associated with type 2 diabetes mellitus Diabetic gastroparesis associated with type 2 diabetes mellitus Problem Active [facility] Upper gastrointestinal hemorrhage Upper GI bleed Problem Active [facility] Dehydration Dehydration Problem Active [facility] Nausea and vomiting Nausea & vomiting Problem Active [facility] Hematemesis Problem Active [facility] Epigastric pain Problem Active [facility] Abdominal pain Problem Active [facility] Vomiting Problem Active [facility] Tachycardia Problem Active [facility] Hyperglycemia Problem Active [facility] Colitis Problem Active [facility] Intractable vomiting with nausea Problem Active [facility] Abnormal kidney function Problem Active [facility] Gastroparesis Problem Active [facility] Hypertensive crisis Problem Active [facility] Cannabis dependence Problem Active [facility] Uncontrolled hypertension Problem Active [facility] Allergies, Adverse Reactions, Alerts Allergy Name Allergy Type Status Severity Reaction(s) Onset Date Inacti ve Date Treating Clinician Comments Source No Known Allergies DA Active U 2019-02-13 00:00:00 [facility] No Known Allergies DA Active U 2019-02-06 00:00:00 [facility] No Known Allergies DA Active U 2018-05-11 00:00:00 [facility] No Known Allergies DA Active U 2018-02-26 00:00:00 [facility] No Known Allergies DA Active U 2018-01-14 00:00:00 [facility] No Known Allergies DA Active U 2017-12-15 00:00:00 [facility] No Known Allergies DA Active U 2017-10-09 00:00:00 [facility] Family History Family Member Diagnosis Comments Start Date Stop Date Source Maternal uncle Diabetes [facility] Natural mother Diabetes [facility] Natural mother Diabetes [facility] Natural father No Known Problems Jessenia stosuma Confucianist Paternal uncle Diabetes [facility] Family member Celiac disease [facility] Confucian[facility] Family member Colon cancer [facility] M ethodist Family member Esophageal cancer [facility] Confucianist Family member Inflammatory bowel disease [facility] Family member Stomach cancer [facility] Social History Social Habit Start Date Stop Date Quantity Comments Source History of tobacco use Current smoker [facility] Exposure to SARS-CoV-2 (event) Not sure [facility] Tobacco use and exposure 2019-12-29 00:00:00 2019-12-29 00:00:00 Nataliia cramer used [facility] Alcohol intake 2019-12-29 00:00:00 2019-12-29 00:00:00 Lifetime non-drinker (finding) [facility] History SDOH Alcohol Frequency 2019-12-29 00:00:00 2019-12-29 00:00:0 0 1 [facility] History SDOH Alcohol Std Drinks 2019-12-29 00:00:00 2019-12-29 00:00: 00 99 [facility] History SDOH Alcohol Binge 2019-12-29 00:00:00 2019-12-29 00:00:00 1 [facility] Sex Ass[birth year] At 1975 00:00:00 1975 00:00:00 Male [facility] Smoking Status Start Date Stop Date Source Former smoker 2019-12-29 00:00:00 2019-12-29 00:00:00 [facility] Confucianist Never smoker [facility] Medications Ordered Medication Name Filled Medication Name Start Date Stop Da te Current Medication? Ordering Clinician Indication Dosage Frequency Signature (SIG) Comments Components Source traMADoL (ULTRAM) 50 mg tablet 2019-12-29 11:31:36 Yes acute pain 50mg Q.[id number] Take 50 mg by mouth 3 (three) times a day .acute pain. Zafar Schulz metoclopramide (REGLAN) 10 MG tablet 2019-12-29 11:31:36 Ye s 10mg Q.25D Take 10 mg by mouth 4 (four) times a day. Zafar Schulz insulin ASPART (NovoLOG) 100 unit/mL injection 2019-12-29 11:31: 36 Yes Q.[id number] Inject under the skin 3 (thr ee) times a day before meals. Zafar Schulz insulin degludec (TRESIBA U-100 INSULIN SUBQ) 2019-12-29 11:31:3 6 Yes Inject under the skin. 25 units at night Zafar Schulz lisinopriL (PRINIVIL) 5 mg tablet 2019-12-29 11:31:35 Yes 5mg QD Take 5 mg by mouth daily. Zafar Schulz pantoprazole (PROTONIX) 40 MG EC tablet 2019-12-29 11:31:35 Yes 40mg Q.5D Take 40 mg by mouth 2 (two) times a day. Zafra Schulz dicyclomine (BENTYL) 20 mg tablet 2019-12-29 11:31:35 Ye s 20mg Q.[id number] Take 20 mg by mouth 3 (three) times a day. Zafar Schulz prucalopride 2 mg tablet 2019-12-29 00:00:00 Yes 2mg QD Take 1 tablet (2 mg total) by mouth daily. Zafar Tijerina [place] Promethazine Hcl (Phenergan Supp*) 25 Mg SUPP Prometha zine Hcl (Phenergan Supp*) 25 Mg SUPP 2019-12-11 19:38:00 Yes 1 E very 6 Hours as needed for Nausea [facility] Promethazine Hcl Promethazine Hcl 2019-12-06 20:11:00 Yes 25 Every 6 Hours [facility] Promethazine Hcl Promethazine Hcl 2019-11-18 01:18:00 Yes 25 Every 6 Hours as needed for Nausea And Vomiting [facility] Promethazine Hcl Promethazine Hcl 2019-11-12 00:25:00 Yes 25 Every 6 Hours as needed for Nausea And Vomiting [facility] Acetaminophen With Codeine (Tylenol With Codeine #3 Ta blet) 1 Each TABLET Acetaminophen With Codeine (Tylenol With Codeine #3 Tablet) 1 Each TABLET 2019-10-28 10:59:00 Yes 300 Every 12 Jessenia rs as needed for Abdominal Pain [facility] Promethazine Hcl Promethazine Hcl 2019-09-21 09:25:00 Yes 25 Every 6 Hours for Vomiting [facility] Losartan Potassium Losartan Potassium 2019-08-25 13:46:00 2019-08-30 5 00:00:00 No 50 Daily [facility] Acetaminophen With Codeine (Tylenol With Codeine #3 Ta blet) 1 Each TABLET Acetaminophen With Codeine (Tylenol With Codeine #3 Tablet) 1 Each TABLET 2019-07-10 18:44:00 2019-09-22 00:00:00 No 300 Every 6 Hours as needed for Pain [facility] Promethazine Hcl Promethazine Hcl 2019-07-06 13:42:00 2019-07-10 00:00 :00 No 25 Three Times A Day [facility] insulin aspart U-100 (NOVOLOG) 100 unit/mL injection 2 22:01:49 Yes type 2 diabetes mellitus 5U Inj ect 5 Units subcutaneously 3 (three) times daily before meals. [facility] insulin glargine (LANTUS) 100 unit/mL injection 2018-12-14 2 2:01:49 Yes type 2 diabetes mellitus 25U QD Inject 25 Units subcutaneously nightly Use as directed . [facility] dicyclomine (BENTYL) 10 MG capsule 2018-12-14 22:01:49 Y es 10mg Q.[id number] Take 10 mg by mouth 3 (three) times daily. [facility] metoclopramide HCl (REGLAN) 10 MG tablet 2018-12-14 22:01:49 Yes diabetic gastroparesis 10mg Take 10 mg by mouth 4 (four) times daily as needed for Nausea. [facility] pantoprazole (PROTONIX) 20 MG tablet 2018-12-14 22:01:49 Ye s 20mg Take 20 mg by mouth 2 (two) times daily before meals. [facility] traMADol (ULTRAM) 50 mg tablet 2018-12-14 22:01:49 Yes 50mg Q.[id number] Take 50 mg by mouth 3 (three) times daily. [facility] Ondansetron (Ondansetron Odt) 8 Mg TAB.[facility] Ondanset calli (Ondansetron Odt) 8 Mg TAB.RAPDIS 2018-12-12 19:01:00 2019-07-10 00:00:00 No 4 Three Times A Day as needed for Nausea, Vomiting [facility] Promethazine Hcl (Phenergan Supp*) 25 Mg SUPP Prometha zine Hcl (Phenergan Supp*) 25 Mg SUPP 2018-12-12 19:01:00 2019-07-10 00:00:00 No 25 Three Times A Day as needed for Nausea, Vomiting [facility] Metoclopramide Hcl (Reglan) 10 Mg TABLET Metoclopramid e Hcl (Reglan) 10 Mg TABLET 2018-11-25 06:19:00 Yes 1 Before Meals And At Bedtime [facility] Pantoprazole Sodium (Protonix) 40 Mg TABLET. Pantopr azole Sodium (Protonix) 40 Mg TABLET. 2018-11-25 06:19:00 Yes 40 Daily [facility] Amlodipine Besylate (Norvasc) 10 Mg TAB Amlodipine Besylate (Norvasc) 10 Mg TAB 2018-11-25 06:19:00 2019-07-09 00:00:00 No 10 Daily [facility] Insulin Aspart (Novolog) 100 Units/1 Ml INJ Insulin As part (Novolog) 100 Units/1 Ml INJ Yes 8 Three Times Daily With Meals [facility] Insulin Glargine (Lantus 3ML Pen) 100 Units/1 Ml INJ I nsulin Glargine (Lantus 3ML Pen) 100 Units/1 Ml INJ Yes 15 Bedtime [facility] Lisinopril Lisinopril Yes 5 Daily [facility] Ondansetron Hcl Ondansetron Hcl Yes 4 Every 6 Hours as needed for Nausea [facility] Dicyclomine Hcl Dicyclomine Hcl 2019-07-10 00:00:00 No 10 Three Times A Day [facility] Promethazine Hcl Promethazine Hcl 2019-07-10 00:00:00 No 25 Three Times A Day as needed for Nausea [facility] Tramadol Hcl (Ultram 50MG*) 50 Mg TAB Tramadol Hcl (Ultram 50MG* ) 50 Mg TAB 2019-07-10 00:00:00 No 1 Three Times A Day as needed for Mild Pain (1-3) Or Fever>100.8 [facility] Glimepiride Glimepiride 2019-07-09 00:00:00 No 2 D aily [facility] Metoclopramide Hcl (Reglan) 10 Mg TABLET Metoclopramid e Hcl (Reglan) 10 Mg TABLET 2018-11-25 00:00:00 No 1 Bedtime [facility] Metoclopramide Hcl Metoclopramide Hcl 2018-11-25 00:00:00 No 10 Three Times A Day [facility] Metoclopramide Hcl (Reglan) 10 Mg TABLET Metoclopramid e Hcl (Reglan) 10 Mg TABLET 2018-11-25 00:00:00 No 1 Three Times A Day [facility] Pantoprazole Sodium (Protonix) 40 Mg TABLET. Pantopr azole Sodium (Protonix) 40 Mg TABLET. 2018-11-25 00:00:00 No 40 Daily [facility] Pantoprazole Sodium (Protonix) 40 Mg TABLET. Pantopr azole Sodium (Protonix) 40 Mg TABLET. 2018-11-25 00:00:00 No 40 Twice A Day [facility] Vital Signs Vital Name Observation Time Observation Value Comments Source Body height 2019-12-29 11:27:00 185.4 cm Zafar Schulz Body weight 2019-12-29 11:27:00 83.008 kg Zafar Schulz BMI 2019-12-29 11:27:00 24.14 kg/m2 [facility] Weight 2019-12-17 17:40:00 210 [lb_av] [facility] BMI (Body Mass Index) 2019-12-17 17:40:00 27.7 kg/m2 [facility] Body Temperature 2019-12-11 19:57:00 99.4 [degF] [facility] Weight 2019-12-11 16:46:00 183 [lb_av] [facility] BMI (Body Mass Index) 2019-12-11 16:46:00 24.1 kg/m2 [facility] Weight 2019-12-06 19:15:00 183 [lb_av] [facility] BMI (Body Mass Index) 2019-12-06 19:15:00 24.1 kg/m2 [facility] Weight 2019-11-17 21:10:00 183 [lb_av] [facility] BMI (Body Mass Index) 2019-11-17 21:10:00 24.1 kg/m2 [facility] Body Temperature 2019-11-12 00:41:00 97.5 [degF] [facility] Weight 2019-11-11 22:05:00 183 [lb_av] [facility] BMI (Body Mass Index) 2019-11-11 22:05:00 24.1 kg/m2 [facility] Weight 2019-11-07 16:35:00 183 [lb_av] [facility] BMI (Body Mass Index) 2019-11-07 16:35:00 24.1 kg/m2 [facility] Body Temperature 2019-10-28 16:21:00 98.1 [degF] [facility] Weight 2019-10-27 17:29:00 184 [lb_av] [facility] BMI (Body Mass Index) 2019-10-27 17:29:00 24.3 kg/m2 [facility] Body Temperature 2019-10-06 11:55:00 98.0 [degF] [facility] BMI (Body Mass Index) 2019-10-06 00:13:00 25.7 kg/m2 [facility] Weight 2019-10-03 16:16:00 195 [lb_av] [facility] Weight 2019-09-30 07:59:00 195 [lb_av] [facility] BMI (Body Mass Index) 2019-09-30 07:59:00 25.7 kg/m2 [facility] Body Temperature 2019-09-29 23:05:00 99.3 [degF] [facility] Weight 2019-09-29 20:31:00 195 [lb_av] [facility] BMI (Body Mass Index) 2019-09-29 20:31:00 25.7 kg/m2 [facility] Body Temperature 2019-09-24 07:56:00 97.9 [degF] [facility] BMI (Body Mass Index) 2019-09-24 00:04:00 25.7 kg/m2 [facility] Weight 2019-09-22 07:12:00 195 [lb_av] [facility] Weight 2019-09-21 07:05:00 193 [lb_av] [facility] BMI (Body Mass Index) 2019-09-21 07:05:00 25.5 kg/m2 [facility] Body Temperature 2019-09-20 23:35:00 97.7 [degF] [facility] Weight 2019-09-20 21:36:00 193 [lb_av] [facility] BMI (Body Mass Index) 2019-09-20 21:36:00 25.5 kg/m2 [facility] Weight 2019-08-23 17:53:00 195 [lb_av] [facility] BMI (Body Mass Index) 2019-08-23 17:53:00 25.7 kg/m2 [facility] Body Temperature 2019-07-24 12:23:00 97.6 [degF] [facility] Procedures Procedure Date / Time Performed Performing Clinician [facility] e EMERGENCY DEPT VISIT 2019-11-17 00:00:00 [facility] EXCISION OF DUODENUM, ENDO, DIAGN 2019-10-05 00:00:00 [facility] EXCISION OF STOMACH, PYLORUS, ENDO, DIAGN 2019-10-05 00:00:00 [facility] Computed tomography of abdomen and pelvis with contrast 00:00:00 [facility] Computed tomography of abdomen and pelvis with contrast 00:00:00 [facility] EMERGENCY DEPT VISIT 2019-09-21 00:00:00 [facility] EMERGENCY DEPT VISIT 2019-09-20 00:00:00 [facility] Plan of Care Planned Activity Planned Date Details Comments Source Future Scheduled Test 2019-10-29 00:00:00 INFLUENZA VACCINE [code = INFLUENZA VACCINE] [facility] Future Scheduled Test 1985-11-25 00:00:00 DIABETIC FOOT EXAM [code = DIABETIC FOOT EXAM] [facility] Future Scheduled Test 1985-11-25 00:00:00 URINE MICROALBUMIN [code = URINE MICROALBUMIN] [facility] Future Scheduled Test 1975 00:00:00 DIABETIC RETINAL E YE EXAM [code = DIABETIC RETINAL EYE EXAM] [facility] Instructions Abdominal Pain - Adult [facility] Encounters Start Date/Time End Date/Time Encounter Type Admission Type [facility] Department Encounter ID Source 2019-12-29 00:00:00 2019-12-29 00:00:00 Outpatient [facility] [id number] Zafar Schulz 2019-12-17 17:45:00 2019-12-17 20:29:00 Departed Emergency Room [facility] [id number] [facility] [place] 2019-12-11 17:08:00 2019-12-11 19:59:[address] [facility] [id number] [facility] 2019-12-06 19:20:00 2019-12-06 22:48:[address] [facility] [id number] [facility] 2019-11-17 21:49:00 2019-11-18 01:35:[address] [facility] [id number] [facility] 2019-11-11 22:15:00 2019-11-12 00:38:00 Departed Emergency Room [address] [facility] [id number] [facility] [place] 2019-11-07 16:24:00 2019-11-07 19:30:[address] [facility] [id number] [facility] 2019-10-27 14:43:00 2019-10-28 17:55:[address] [facility] [id number] [facility] 2019-10-04 00:35:00 2019-10-06 12:14:00 Discharged Inpatient [address] [facility] [id number] [facility] 2019-09-30 08:15:00 2019-09-30 14:10:00 Departed Emergency Room [address] [facility] [id number] [facility] [place] 2019-09-29 20:40:00 2019-09-29 23:05:[address] [facility] [id number] [facility] [place] 2019-09-22 09:41:00 2019-09-24 08:22:00 Discharged Inpatient [address] [facility] [id number] [facility] [place] 2019-09-21 07:02:00 2019-09-21 11:05:[address] [facility] [id number] [facility] 2019-09-20 20:47:00 2019-09-20 23:35:[address] [facility] [id number] [facility] 2019-08-24 08:10:00 2019-08-25 14:00:00 Discharged Inpatient (obs) [facility] [id number] [facility] 2019-08-23 17:24:00 2019-08-23 19:35:[address] [facility] [id number] [facility] 2019-07-23 06:38:00 2019-07-24 13:59:00 Discharged Inpatient [address] [facility] [id number] [facility] 2019-07-09 15:58:00 2019-07-10 18:57:00 Discharged Inpatient (obs) [facility] [id number] [facility] 2019-07-06 11:09:00 2019-07-06 14:11:[address] [facility] [id number] [facility] 2019-05-31 00:00:00 2019-05-31 00:00:00 Transition of Care Dasia Zainajean-claude Garcia [id number] 2018-12-13 06:33:00 2018-12-13 08:35:[address] [facility] [id number] [facility] 2018-12-12 17:07:00 2018-12-12 19:35:[address] [facility] [place] [id number] [facility] 2018-11-22 18:24:00 2018-11-25 16:05:00 Discharged Inpatient 1 ISACC JAVED [facility] [id number] [facility] 2018-09-28 12:15:00 2018-09-28 16:32:00 Departed Emergency Room [facility] [id number] [facility] 2018-09-20 08:55:00 2018-09-20 08:55:00 Registered Clinic 3 TAVIA GARCIA [facility] [id number] [facility] 2018-08-10 13:35:00 2018-08-10 17:00:00 Departed Emergency Room [facility] [id number] [facility] 2018-07-05 11:53:00 2018-07-07 08:40:00 Discharged Inpatient [facility] [id number] [facility] 2018-06-23 07:38:00 2018-06-23 07:38:00 Registered Clinic 3 TAVIA GARCIA [facility] [id number] [facility] Results Test Description Test Time Test Comments Results Result Comments Source Blood leukocytes automated count (number/volume) 2019-12-11 17:15:00 Test Item White Blood Count (test code = 6690-2) 5.98 4.8-10.8 [facility] count (number/volume)2019-12-11 17:15:00* Test Item Value Reference Range Interpretation Comments Red Blood Count (test code = 789-8) 3.79 4.3-5.7 [facility] hemoglobin measurement (moles/volume)2019-12-11 17:15:00* Test Item Value Reference Range Interpretation Comments Hemoglobin (test code = 28581-1) 11.1 14.0-18.0 [facility] hematocrit (volume fraction)2019-12-11 17:15:00* Test Item Value Reference Range Interpretation Comments Hematocrit (test code = 4544-3) 34.9 38.2-49.6 [facility] Center[facility] erythrocyte mean corpuscular [id number] 17:15:00* Test Item Value Reference Range Interpretation Comments Mean Corpuscular Volume (test code = 787-2) 92.1 81-99 [facility] Center[facility] erythrocyte mean corpuscular hemoglobin (mass per erythrocyte)2019-12-11 17:15:00* Test Item Value Reference Range Interpretation Comments Mean Corpuscular Hemoglobin (test code = 785-6) 29.3 28-32 [facility] mean corpuscular hemoglobin concentration measurement (mass/volume)2019-12-11 17:15:00* Test Item Value Reference Range Interpretation Comments Mean Corpuscular Hemoglobin Concent (test code = 786-4) 31.8 31-35 [facility] CenterRDW [id number] 17:15:00* Test Item Value Reference Range Interpretation Comments Red Cell Distribution Width (test code = 29793-7) 14.0 11.7 -14.4 [facility] CenterAutunc health appalachianed blood platelet count (count/volume)2019-12-11 17:15:00* Test Item Value Reference Range Interpretation Comments Platelet Count (test code = 777-3) 200 140-360 [facility] CenterAutunc health appalachianed blood segmented neutrophil count as percentage of total pnlhfxowqg3040-56-05 17:15:00* Test Item Value Reference Range Interpretation Comments Neutrophils (%) (Auto) (test code = 49777-9) 60.7 38.7-80.0 [facility] CenterAutunc health appalachianed blood lymphocyte count as percentage ot total vzgbcwmmjp6430-30-88 17:15:00* Test Item Value Reference Range Interpretation Comments Lymphocytes (%) (Auto) (test code = 736-9) 24.7 18.0-39.1 [facility] Medical CenterAutomated blood monocyte count as percentage of total ntswtbxvys8619-92-16 17:15:00* Test Item Value Reference Range Interpretation Comments Monocytes (%) (Auto) (test code = 5905-5) 9.9 4.4-11.3 [facility] CenterAutomated blood eosinophil count as percentage of total kqurbxyitq6051-25-10 17:15:00* Test Item Value Reference Range Interpretation Comments Eosinophils (%) (Auto) (test code = 713-8) 3.2 0.0-6.0 [facility] CenterAutomated blood basophil count as percentage of total jjapmziyyd2625-61-54 17:15:00* Test Item Value Reference Range Interpretation Comments Basophils (%) (Auto) (test code = 706-2) 1.2 0.0-1.0 [facility] Medical CenterFluoroscopic procedure less than one hour ouqsbjuo7787-98-42 17:15:00* Test Item Value Reference Range Interpretation Comments IM GRANULOCYTES % (test code = IM GRANULOCYTES %) 0.3 0.0- 1.0 [facility] CenterAutomated blood neutrophil count 2019-12-11 17:15:00* Test Item Value Reference Range Interpretation Comments Neutrophils # (Auto) (test code = 751-8) 3.6 2.1-6.9 [facility] CenterBlood lymphocytes count (number/volume) 2019-12-11 17:15:00* Test Item Value Reference Range Interpretation Comments Lymphocytes # (Auto) (test code = 67968-0) 1.5 1.0-3.2 [facility] Medical CenterBlood monocytes automated count (number/volume)2019-12-11 17:15:00* Test Item Value Reference Range Interpretation Comments Monocytes # (Auto) (test code = 742-7) 0.6 0.2-0.8 [facility] CenterAutomated blood eosinophil count 2019-12-11 17:15:00* Test Item Value Reference Range Interpretation Comments Eosinophils # (Auto) (test code = 711-2) 0.2 0.0-0.4 [facility] CenterAutomated blood basophil count (count/volume)2019-12-11 17:15:00* Test Item Value Reference Range Interpretation Comments Basophils # (Auto) (test code = 704-7) 0.1 0.0-0.1 [facility] CenterFluoroscopic procedure less than one hour egkyjkff3641-18-57 17:15:00* Test Item Value Reference Range Interpretation Comments Absolute Immature Granulocyte (auto (zeenat t code = Absolute Immature Granulocyte (auto) 0.02 0-0.1 [facility] CenterBlwinona [facility] leukocytes automated count (number/volume)2019-12-11 17:15:00* Test Item Value Reference Range Interpretation Comments White Blood Count (test code = 6690-2) 5.98 4.8-10.8 [facility] CenterBlwinona community memorial hospital erythrocytes automated count (number/volume)2019-12-11 17:15:00* Test Item Value Reference Range Interpretation Comments Red Blood Count (test code = 789-8) 3.79 4.3-5.7 [facility] CenterBlood hemoglobin measurement (moles/volume)2019-12-11 17:15:00* Test Item Value Reference Range Interpretation Comments Hemoglobin (test code = 76531-2) 11.1 14.0-18.0 [facility] CenterAutomated blood hematocrit (volume fraction)2019-12-11 17:15:00* Test Item Value Reference Range Interpretation Comments Hematocrit (test code = 4544-3) 34.9 38.2-49.6 [facility] CenterAutomated erythrocyte mean corpuscular rhuvmd4061-62-36 17:15:00* Test Item Value Reference Range Interpretation Comments Mean Corpuscular Volume (test code = 787-2) 92.1 81-99 [facility] CenterAutomated erythrocyte mean corpuscular hemoglobin (mass per erythrocyte)2019-12-11 17:15:00* Test Item Value Reference Range Interpretation Comments Mean Corpuscular Hemoglobin (test code = 785-6) 29.3 28-32 [facility] CenterAutomated erythrocyte mean corpuscular hemoglobin concentration measurement (mass/volume)2019-12-11 17:15:00* Test Item Value Reference Range Interpretation Comments Mean Corpuscular Hemoglobin Concent (test code = 786-4) 31.8 31-35 [facility] Medical CenterRDW HblDf-Grz0396-41-13 17:15:00* Test Item Value Reference Range Interpretation Comments Red Cell Distribution Width (test code = 91573-5) 14.0 11.7 -14.4 [facility] CenterAutomated blood platelet count (count/volume)2019-12-11 17:15:00* Test Item Value Reference Range Interpretation Comments Platelet Count (test code = 777-3) 200 140-360 [facility] CenterAutomated blood segmented neutrophil count as percentage of total obxrpmfimg4635-48-95 17:15:00* Test Item Value Reference Range Interpretation Comments Neutrophils (%) (Auto) (test code = 91541-4) 60.7 38.7-80.0 [facility] CenterAutomated blood lymphocyte count as percentage ot total mavjgycvld7821-41-56 17:15:00* Test Item Value Reference Range Interpretation Comments Lymphocytes (%) (Auto) (test code = 736-9) 24.7 18.0-39.1 [facility] CenterAutomated blood monocyte count as percentage of total sovdeizmjc7283-13-03 17:15:00* Test Item Value Reference Range Interpretation Comments Monocytes (%) (Auto) (test code = 5905-5) 9.9 4.4-11.3 [facility] CenterAutomated blood eosinophil count as percentage of total vevqjpkdcf1483-81-15 17:15:00* Test Item Value Reference Range Interpretation Comments Eosinophils (%) (Auto) (test code = 713-8) 3.2 0.0-6.0 [facility] CenterAutomated blood basophil count as percentage of total yncxtwazem0868-79-47 17:15:00* Test Item Value Reference Range Interpretation Comments Basophils (%) (Auto) (test code = 706-2) 1.2 0.0-1.0 [facility] CenterFluoroscopic procedure less than one hour cgtqpnyh8269-29-89 17:15:00* Test Item Value Reference Range Interpretation Comments IM GRANULOCYTES % (test code = IM GRANULOCYTES %) 0.3 0.0- 1.0 [facility] CenterAutomated blood neutrophil count 2019-12-11 17:15:00* Test Item Value Reference Range Interpretation Comments Neutrophils # (Auto) (test code = 751-8) 3.6 2.1-6.9 [facility] CenterBlood lymphocytes count (number/volume) 2019-12-11 17:15:00* Test Item Value Reference Range Interpretation Comments Lymphocytes # (Auto) (test code = 67876-1) 1.5 1.0-3.2 [facility] CenterBlood monocytes automated count (number/volume)2019-12-11 17:15:00* Test Item Value Reference Range Interpretation Comments Monocytes # (Auto) (test code = 742-7) 0.6 0.2-0.8 [facility] CenterAutomated blood eosinophil count 2019-12-11 17:15:00* Test Item Value Reference Range Interpretation Comments Eosinophils # (Auto) (test code = 711-2) 0.2 0.0-0.4 [facility] CenterAutomated blood basophil count (count/volume)2019-12-11 17:15:00* Test Item Value Reference Range Interpretation Comments Basophils # (Auto) (test code = 704-7) 0.1 0.0-0.1 [facility] CenterFluoroscopic procedure less than one hour czfprjnz5703-52-46 17:15:00* Test Item Value Reference Range Interpretation Comments Absolute Immature Granulocyte (auto (zeenat t code = Absolute Immature Granulocyte (auto) 0.02 0-0.1 [facility] CenterABDOMEN COMPLETE - [id number] 00:00:00 [place] [address] Patient Name: BREE LINDSAY MR #: [id number] : 1975 Age/Sex: 43/M Req #: [id number] Adm Physician: Ordered by: ALEISHA LYNNE MD Report #: [id number] Location: [facility] Room/Bed: Procedure: [id number] HOPD/ABDOMEN COMPLETE - HOPD Exam Date: 11/11/19 Exam Time: 2322 REPORT STATUS: Signed EXAM: Abd omen and chest, 5 radiographs INDICATION: persistent vomiting [id number] COMPARISON: CT dated 10/04/2019 FINDINGS: Lungs are clear. No focal consolidation. No pleural effusion or pneumothorax. Nonobstructive b owel gas pattern. No signs of pneumoperitoneum. Moderate colonic stool burden. No calcifications overlying renal shadows. Right upper quadrant surgical cl ips, likely related to cholecystectomy. Pelvic phleboliths. No acute osseous abnormality. IMPRESSION: Nonobstructive bowel gas pattern. No acute th oracic abnormality. Signed by: Dr. Estefany Martinez MD on 11/12/2019 12:02 AM Dictated By: ESTEFANY MARTINEZ MD 0002 Transcribed By: PAULA on 11/12/19 0002 COPY TO: ALEISHA FNUG MD Capillary blood glucose measurement by glucometer (mass/volume)2019-10-28 15:46:00* Test Item Value Reference Range Interpretation Comments Bedside Glucose (test code = 23198-1) 62 70-120 Meter ID: [id number] [facility] by glucometer (mass/volume)2019-10-28 15:46:00* Test Item Value Reference Range Interpretation Comments Bedside Glucose (test code = 03637-3) 62 70-120 Meter ID: [id number] [facility] blood glucose measurement by glucometer (mass/volume)2019-10-28 15:46:00* Test Item Value Reference Range Interpretation Comments Bedside Glucose (test code = 51627-8) 62 70-120 Meter ID: [id number] Hospitals of Providence [facility] Campusillary blood glucose measurement by glucometer (mass/volume)2019-10-28 15:46:00* Test Item Value Reference Range Interpretation Comments Bedside Glucose (test code = 02081-5) 62 70-120 Meter ID: [id number] Hospitals of Providence [facility] Campusillary blood glucose measurement by glucometer (mass/volume)2019-10-28 15:46:00* Test Item Value Reference Range Interpretation Comments Bedside Glucose (test code = 73560-6) 62 70-120 Meter ID: [id number] Hospitals of [facility] Campusillary blood glucose measurement by glucometer (mass/volume)2019-10-28 15:46:00* Test Item Value Reference Range Interpretation Comments Bedside Glucose (test code = 84366-7) 62 70-120 Meter ID: [id number] Hospitals of [facility] Campusillary blood glucose measurement by glucometer (mass/volume)2019-10-28 15:46:00* Test Item Value Reference Range Interpretation Comments Bedside Glucose (test code = 41454-7) 62 70-120 Meter ID: [id number] General Hospitalerum or plasma sodium measurement (moles/volume)2019-10-28 04:50:00* Test Item Value Reference Range Interpretation Comments Sodium Level (test code = 2951-2) 141 136-145 [facility]er[facility] plasma potassium measurement (moles/volume)2019-10-28 04:50:00* Test Item Value Reference Range Interpretation Comments Potassium Level (test code = 2823-3) 3.7 3.5-5.1 [facility] Hospitaler[facility] or plasma chloride measurement (moles/volume)2019-10-28 04:50:00* Test Item Value Reference Range Interpretation Comments Chloride Level (test code = 2075-0) 106 98-107 [facility] Hospitalerum or plasma carbon dioxide, total measurement (moles/volume)2019-10-28 04:50:00* Test Item Value Reference Range Interpretation Comments Carbon Dioxide Level (test code = 2028-9) 24 22-29 [facility] Hospitalerum or plasma anion yyl4356-85-12 04:50:00* Test Item Value Reference Range Interpretation Comments Anion Gap (test code = 49723-2) 14.7 8-16 [facility]er[facility] urea nitrogen measurement (mass/volume)2019-10-28 04:50:00* Test Item Value Reference Range Interpretation Comments Blood Urea Nitrogen (test code = 3094-0) 17 7-26 [facility] Hospitaler[facility] plasma creatinine measurement (mass/volume)2019-10-28 04:50:00* Test Item Value Reference Range Interpretation Comments Creatinine (test code = 2160-0) 1.15 0.72-1.25 [facility] Hospitalerum or plasma urea nitrogen/creatinine mass tuvwo7603-83-72 04:50:00* Test Item Value Reference Range Interpretation Comments BUN/Creatinine Ratio (test code = 3097-3) 15 6-25 [facility] CenterEstimated glomerular filtration rate (GFR) aiawvkdyanlrr9199-37-31 04:50:00* Test Item Value Reference Range Interpretation Comments Estimat Glomerular Filtration Rate (test code = 050706826) > 60 >60 Ranges were taken from the National Kidney Disease Education Program and the [facility] Kidney Foundation literature.Reference ranges:60 or greater: Qcxxne54-05 ( for 3 consecutive months): Chronic kidney disease 15 or less: Kidney failureCHRISTUS Santa Rosa Hospital – Medical CenterGlucose qcduzmhldjd4051-75-35 04:50:00* Test Item Value Reference Range Interpretation Comments Glucose Level (test code = QFX1847) 246 74-118 [facility] Hospitaler[facility] or plasma calcium measurement (mass/volume)2019-10-28 04:50:00* Test Item Value Reference Range Interpretation Comments Calcium Level (test code = 83077-2) 8.4 8.4-10.2 [facility] CenterFluoroscopic procedure less than one hour iroslvey1826-72-78 04:50:00* Test Item Value Reference Range Interpretation Comments Hemoglobin A1c Percent (test code = Hemoglobin A1c Percent) 9.9 4.0-7.0 [facility] Hospitalerum or plasma lipase measurement (enzymatic activity/volume)2019-10-28 04:50:00* Test Item Value Reference Range Interpretation Comments Lipase (test code = 3040-3) < 4 8-78 [facility] Hospitalerum or plasma sodium measurement (moles/volume)2019-10-28 04:50:00* Test Item Value Reference Range Interpretation Comments Sodium Level (test code = 2951-2) 141 136-145 [facility] Hospitalerum or plasma potassium measurement (moles/volume)2019-10-28 04:50:00* Test Item Value Reference Range Interpretation Comments Potassium Level (test code = 2823-3) 3.7 3.5-5.1 [facility] Hospitaler[facility] or plasma chloride measurement (moles/volume)2019-10-28 04:50:00* Test Item Value Reference Range Interpretation Comments Chloride Level (test code = 2075-0) 106 98-107 [facility] Hospitalerum or plasma carbon dioxide, total measurement (moles/volume)2019-10-28 04:50:00* Test Item Value Reference Range Interpretation Comments Carbon Dioxide Level (test code = 2028-9) 24 22-29 [facility]er[facility] or plasma anion esz0205-44-26 04:50:00* Test Item Value Reference Range Interpretation Comments Anion Gap (test code = 40106-3) 14.7 8-16 [facility]er[facility] plasma urea nitrogen measurement (mass/volume)2019-10-28 04:50:00* Test Item Value Reference Range Interpretation Comments Blood Urea Nitrogen (test code = 3094-0) 17 7-26 [facility]er[facility] or plasma creatinine measurement (mass/volume)2019-10-28 04:50:00* Test Item Value Reference Range Interpretation Comments Creatinine (test code = 2160-0) 1.15 0.72-1.25 [facility]er[facility] or plasma urea nitrogen/creatinine mass wjkzy7121-86-52 04:50:00* Test Item Value Reference Range Interpretation Comments BUN/Creatinine Ratio (test code = 3097-3) 15 6-25 [facility] CenterEstimated glomerular filtration rate (GFR) uixnthjagcouc7437-33-83 04:50:00* Test Item Value Reference Range Interpretation Comments Estimat Glomerular Filtration Rate (test code = 006597885) > 60 >60 Ranges were taken from the National Kidney Disease Education Program and the [place] [place] [employer] literature.Reference ranges:60 or greater: Yquofk64-29 ( for 3 consecutive months): Chronic kidney disease 15 or less: Kidney failureCHRISTUS Santa [facility] – Medical CenterGlucose hrikvvgsjpc2149-15-99 04:50:00* Test Item Value Reference Range Interpretation Comments Glucose Level (test code = QRE8637) 246 74-118 [facility] Hospitalerum or plasma calcium measurement (mass/volume)2019-10-28 04:50:00* Test Item Value Reference Range Interpretation Comments Calcium Level (test code = 65876-8) 8.4 8.4-10.2 [facility] CenterFluoroscopic procedure less than one hour ldawidkq7015-34-73 04:50:00* Test Item Value Reference Range Interpretation Comments Hemoglobin A1c Percent (test code = Hemoglobin A1c Percent) 9.9 4.0-7.0 [facility]er[facility] or plasma lipase measurement (enzymatic activity/volume)2019-10-28 04:50:00* Test Item Value Reference Range Interpretation Comments Lipase (test code = 3040-3) < 4 8-78 [facility]erum or plasma sodium measurement (moles/volume)2019-10-28 04:50:00* Test Item Value Reference Range Interpretation Comments Sodium Level (test code = 2951-2) 141 136-145 [facility] Hospitalerum or plasma potassium measurement (moles/volume)2019-10-28 04:50:00* Test Item Value Reference Range Interpretation Comments Potassium Level (test code = 2823-3) 3.7 3.5-5.1 [facility] Hospitalerum or plasma chloride measurement (moles/volume)2019-10-28 04:50:00* Test Item Value Reference Range Interpretation Comments Chloride Level (test code = 2075-0) 106 98-107 [facility] Hospitalerum or plasma carbon dioxide, total measurement (moles/volume)2019-10-28 04:50:00* Test Item Value Reference Range Interpretation Comments Carbon Dioxide Level (test code = 2028-9) 24 22-29 [facility] Hospitalerum or plasma anion ryi4464-61-91 04:50:00* Test Item Value Reference Range Interpretation Comments Anion Gap (test code = 15821-7) 14.7 8-16 [facility]erum or plasma urea nitrogen measurement (mass/volume)2019-10-28 04:50:00* Test Item Value Reference Range Interpretation Comments Blood Urea Nitrogen (test code = 3094-0) 17 7-26 [facility]er[facility] or plasma creatinine measurement (mass/volume)2019-10-28 04:50:00* Test Item Value Reference Range Interpretation Comments Creatinine (test code = 2160-0) 1.15 0.72-1.25 [facility] Hospitalerum or plasma urea nitrogen/creatinine mass kvxgu9209-01-36 04:50:00* Test Item Value Reference Range Interpretation Comments BUN/Creatinine Ratio (test code = 3097-3) 15 6-25 [facility] CenterEstimated glomerular filtration rate (GFR) axexgtlcfbkpa8692-09-66 04:50:00* Test Item Value Reference Range Interpretation Comments Estimat Glomerular Filtration Rate (test code = 368658950) > 60 >60 Ranges were taken from the National Kidney Disease Education Program and the [facility] literature.Reference ranges:60 or greater: Baizae84-30 ( for 3 consecutive months): Chronic kidney disease 15 or less: Kidney failureCHRISTUS [facility] – Medical CenterGlucose tuxrlmyyxbo6068-28-56 04:50:00* Test Item Value Reference Range Interpretation Comments Glucose Level (test code = RMI1778) 246 74-118 [facility]erum or plasma calcium measurement (mass/volume)2019-10-28 04:50:00* Test Item Value Reference Range Interpretation Comments Calcium Level (test code = 60213-3) 8.4 8.4-10.2 [facility] CenterFluoroscopic procedure less than one hour njlpgnai3854-24-09 04:50:00* Test Item Value Reference Range Interpretation Comments Hemoglobin A1c Percent (test code = Hemoglobin A1c Percent) 9.9 4.0-7.0 [facility]er[facility] or plasma lipase measurement (enzymatic activity/volume)2019-10-28 04:50:00* Test Item Value Reference Range Interpretation Comments Lipase (test code = 3040-3) < 4 8-78 [facility]erum or plasma sodium measurement (moles/volume)2019-10-28 04:50:00* Test Item Value Reference Range Interpretation Comments Sodium Level (test code = 2951-2) 141 136-145 [facility] Hospitalerum or plasma potassium measurement (moles/volume)2019-10-28 04:50:00* Test Item Value Reference Range Interpretation Comments Potassium Level (test code = 2823-3) 3.7 3.5-5.1 [facility]erum or plasma chloride measurement (moles/volume)2019-10-28 04:50:00* Test Item Value Reference Range Interpretation Comments Chloride Level (test code = 2075-0) 106 98-107 [facility] Hospitalerum or plasma carbon dioxide, total measurement (moles/volume)2019-10-28 04:50:00* Test Item Value Reference Range Interpretation Comments Carbon Dioxide Level (test code = 2028-9) 24 22-29 [facility] Hospitalerum or plasma anion gqr7732-60-05 04:50:00* Test Item Value Reference Range Interpretation Comments Anion Gap (test code = 43402-1) 14.7 8-16 [facility]erum or plasma urea nitrogen measurement (mass/volume)2019-10-28 04:50:00* Test Item Value Reference Range Interpretation Comments Blood Urea Nitrogen (test code = 3094-0) 17 7-26 [facility]erum or plasma creatinine measurement (mass/volume)2019-10-28 04:50:00* Test Item Value Reference Range Interpretation Comments Creatinine (test code = 2160-0) 1.15 0.72-1.25 [facility]erum or plasma urea nitrogen/creatinine mass rlfnt8225-47-28 04:50:00* Test Item Value Reference Range Interpretation Comments BUN/Creatinine Ratio (test code = 3097-3) 15 6-25 [facility] CenterEstimated glomerular filtration rate (GFR) clakccdavzsum8976-82-49 04:50:00* Test Item Value Reference Range Interpretation Comments Estimat Glomerular Filtration Rate (test code = 423907851) > 60 >60 Ranges were taken from the National Kidney Disease Education Program and the [facility] Foundation literature.Reference ranges:60 or greater: Nilitc57-82 ( for 3 consecutive months): Chronic kidney disease 15 or less: Kidney failureCHRISTUS Santa [facility] – Medical CenterGlucose uncgpgnboor2914-73-80 04:50:00* Test Item Value Reference Range Interpretation Comments Glucose Level (test code = HQA4903) 246 74-118 [facility]erum or plasma calcium measurement (mass/volume)2019-10-28 04:50:00* Test Item Value Reference Range Interpretation Comments Calcium Level (test code = 84306-2) 8.4 8.4-10.2 [facility] CenterFluoroscopic procedure less than one hour tueyjmnf3461-26-80 04:50:00* Test Item Value Reference Range Interpretation Comments Hemoglobin A1c Percent (test code = Hemoglobin A1c Percent) 9.9 4.0-7.0 [facility]er[facility] or plasma lipase measurement (enzymatic activity/volume)2019-10-28 04:50:00* Test Item Value Reference Range Interpretation Comments Lipase (test code = 3040-3) < 4 8-78 [facility]erum or plasma sodium measurement (moles/volume)2019-10-28 04:50:00* Test Item Value Reference Range Interpretation Comments Sodium Level (test code = 2951-2) 141 136-145 [facility]erum or plasma potassium measurement (moles/volume)2019-10-28 04:50:00* Test Item Value Reference Range Interpretation Comments Potassium Level (test code = 2823-3) 3.7 3.5-5.1 [facility]er[facility] plasma chloride measurement (moles/volume)2019-10-28 04:50:00* Test Item Value Reference Range Interpretation Comments Chloride Level (test code = 2075-0) 106 98-107 [facility]erum or plasma carbon dioxide, total measurement (moles/volume)2019-10-28 04:50:00* Test Item Value Reference Range Interpretation Comments Carbon Dioxide Level (test code = 2028-9) 24 22-29 [facility]er[facility] or plasma anion rym6468-31-55 04:50:00* Test Item Value Reference Range Interpretation Comments Anion Gap (test code = 59280-8) 14.7 8-16 [facility]er[facility] urea nitrogen measurement (mass/volume)2019-10-28 04:50:00* Test Item Value Reference Range Interpretation Comments Blood Urea Nitrogen (test code = 3094-0) 17 7-26 [facility]erum or plasma creatinine measurement (mass/volume)2019-10-28 04:50:00* Test Item Value Reference Range Interpretation Comments Creatinine (test code = 2160-0) 1.15 0.72-1.25 [facility]erum or plasma urea nitrogen/creatinine mass bpfxs7355-92-28 04:50:00* Test Item Value Reference Range Interpretation Comments BUN/Creatinine Ratio (test code = 3097-3) 15 6-25 [facility] [facility] CenterEstimated glomerular filtration rate (GFR) zjtozohtxvwjn4784-54-57 04:50:00* Test Item Value Reference Range Interpretation Comments Estimat Glomerular Filtration Rate (test code = 751979234) > 60 >60 Ranges were taken from the National Kidney Disease Education Program and the [facility] Kidney Foundation literature.Reference ranges:60 or greater: Zdrdbd16-27 ( for 3 consecutive months): Chronic kidney disease 15 or less: Kidney failureCH[facility] CenterGlucose ohdyswlqmha8366-02-32 04:50:00* Test Item Value Reference Range Interpretation Comments Glucose Level (test code = APA1404) 246 74-118 [facility] calcium measurement (mass/volume)2019-10-28 04:50:00* Test Item Value Reference Range Interpretation Comments Calcium Level (test code = 96801-0) 8.4 8.4-10.2 [facility] Medical CenterFluoroscopic procedure less than one hour nfpxawpy3126-19-25 04:50:00* Test Item Value Reference Range Interpretation Comments Hemoglobin A1c Percent (test code = Hemoglobin A1c Percent) 9.9 4.0-7.0 [facility] plasma lipase measurement (enzymatic activity/volume)2019-10-28 04:50:00* Test Item Value Reference Range Interpretation Comments Lipase (test code = 3040-3) < 4 8-78 [facility] sodium measurement (moles/volume)2019-10-28 04:50:00* Test Item Value Reference Range Interpretation Comments Sodium Level (test code = 2951-2) 141 136-145 [facility] potassium measurement (moles/volume)2019-10-28 04:50:00* Test Item Value Reference Range Interpretation Comments Potassium Level (test code = 2823-3) 3.7 3.5-5.1 [facility] chloride measurement (moles/volume)2019-10-28 04:50:00* Test Item Value Reference Range Interpretation Comments Chloride Level (test code = 2075-0) 106 98-107 [facility]er[facility] carbon dioxide, total measurement (moles/volume)2019-10-28 04:50:00* Test Item Value Reference Range Interpretation Comments Carbon Dioxide Level (test code = 2028-9) 24 22-29 [facility] anion nhl3904-62-17 04:50:00* Test Item Value Reference Range Interpretation Comments Anion Gap (test code = 53426-1) 14.7 8-16 [facility] urea nitrogen measurement (mass/volume)2019-10-28 04:50:00* Test Item Value Reference Range Interpretation Comments Blood Urea Nitrogen (test code = 3094-0) 17 7-26 [facility] creatinine measurement (mass/volume)2019-10-28 04:50:00* Test Item Value Reference Range Interpretation Comments Creatinine (test code = 2160-0) 1.15 0.72-1.25 [facility]er[facility] urea nitrogen/creatinine mass yholr8449-88-62 04:50:00* Test Item Value Reference Range Interpretation Comments BUN/Creatinine Ratio (test code = 3097-3) 15 6-25 [facility] CenterEstimated glomerular filtration rate (GFR) rjykgeelwiuyr8321-52-23 04:50:00* Test Item Value Reference Range Interpretation Comments Estimat Glomerular Filtration Rate (test code = 452063862) > 60 >60 Ranges were taken from the National Kidney Disease Education Program and the [facility] literature.Reference ranges:60 or greater: Txaufj20-62 ( for 3 consecutive months): Chronic kidney disease 15 or less: Kidney failureCHRISTUS [facility] – Medical CenterGlucose [id number] 04:50:00* Test Item Value Reference Range Interpretation Comments Glucose Level (test code = XOV3756) 246 74-118 [facility]er[facility] calcium measurement (mass/volume)2019-10-28 04:50:00* Test Item Value Reference Range Interpretation Comments Calcium Level (test code = 07387-0) 8.4 8.4-10.2 [facility] CenterFluoroscopic procedure less than one hour qmcjwmeg5582-22-16 04:50:00* Test Item Value Reference Range Interpretation Comments Hemoglobin A1c Percent (test code = Hemoglobin A1c Percent) 9.9 4.0-7.0 [facility] lipase measurement (enzymatic activity/volume)2019-10-28 04:50:00* Test Item Value Reference Range Interpretation Comments Lipase (test code = 3040-3) < 4 8-78 [facility]er[facility] plasma sodium measurement (moles/volume)2019-10-28 04:50:00* Test Item Value Reference Range Interpretation Comments Sodium Level (test code = 2951-2) 141 136-145 [facility]er[facility] plasma potassium measurement (moles/volume)2019-10-28 04:50:00* Test Item Value Reference Range Interpretation Comments Potassium Level (test code = 2823-3) 3.7 3.5-5.1 [facility]er[facility] plasma chloride measurement (moles/volume)2019-10-28 04:50:00* Test Item Value Reference Range Interpretation Comments Chloride Level (test code = 2075-0) 106 98-107 [facility]er[facility] plasma carbon dioxide, total measurement (moles/volume)2019-10-28 04:50:00* Test Item Value Reference Range Interpretation Comments Carbon Dioxide Level (test code = 2028-9) 24 22-29 [facility]er[facility] plasma anion pfi5968-38-11 04:50:00* Test Item Value Reference Range Interpretation Comments Anion Gap (test code = 94047-6) 14.7 8-16 [facility] urea nitrogen measurement (mass/volume)2019-10-28 04:50:00* Test Item Value Reference Range Interpretation Comments Blood Urea Nitrogen (test code = 3094-0) 17 7-26 [facility]er[facility] creatinine measurement (mass/volume)2019-10-28 04:50:00* Test Item Value Reference Range Interpretation Comments Creatinine (test code = 2160-0) 1.15 0.72-1.25 [facility]er[facility] urea nitrogen/creatinine mass pznhr0590-53-65 04:50:00* Test Item Value Reference Range Interpretation Comments BUN/Creatinine Ratio (test code = 3097-3) 15 6-25 [facility] CenterEstimated glomerular filtration rate (GFR) zlccalfijwlew8263-53-46 04:50:00* Test Item Value Reference Range Interpretation Comments Estimat Glomerular Filtration Rate (test code = 672441374) > 60 >60 Ranges were taken from the National Kidney Disease Education Program and the [facility] Foundation literature.Reference ranges:60 or greater: Qepmuh55-86 ( for 3 consecutive months): Chronic kidney disease 15 or less: Kidney failureCH[facility]ST[facility] – Medical CenterGlucose frhayfnxodx4765-25-69 04:50:00* Test Item Value Reference Range Interpretation Comments Glucose Level (test code = XAH8737) 246 74-118 [facility]er[facility] calcium measurement (mass/volume)2019-10-28 04:50:00* Test Item Value Reference Range Interpretation Comments Calcium Level (test code = 40746-8) 8.4 8.4-10.2 [facility] CenterFluoroscopic procedure less than one hour obzjlzvo6692-01-90 04:50:00* Test Item Value Reference Range Interpretation Comments Hemoglobin A1c Percent (test code = Hemoglobin A1c Percent) 9.9 4.0-7.0 [facility] lipase measurement (enzymatic activity/volume)2019-10-28 04:50:00* Test Item Value Reference Range Interpretation Comments Lipase (test code = 3040-3) < 4 8-78 [facility] CenterFluoroscopic procedure less than one hour dztanmjh9210-67-72 15:40:00* Test Item Value Reference Range Interpretation Comments Coronavirus (PCR) (test code = Coronavirus (PCR)) NOT DETECTED NOTD ETECTED Hologic Aptima SARS-CoV-2 assay is a nucleic amplification test intended for the qualitative detection of RNA from SARS-CoV-2 from nasopharyngeal (DIPLOMATIC OFFICER) specimens. It is used under Emergency Use Authorization (EUA) by [facility].A positive result is indicative of the presence [...] for reprat testing oc clinically indicated.Tesing performed by:[facility] [employer] [address] [place] [address] [id number] hart MD, PhD [facility] CenterFluoroscopic procedure less than one hour hoavsgju2107-89-14 15:40:00* Test Item Value Reference Range Interpretation Comments Coronavirus (PCR) (test code = Coronavirus (PCR)) NOT DETECTED NOTD ETECTED Hologic Aptima SARS-CoV-2 assay is a nucleic amplification test intended for the qualitative detection of RNA from SARS-CoV-2 from nasopharyngeal (DIPLOMATIC OFFICER) specimens. It is used under Emergency Use Authorization (EUA) by [facility].A positive result is indicative of the presence [...] for reprat testing oc clinically indicated.Tesing performed by:[facility] [employer] [address] [place] [address] [id number] hart MD, PhD [facility] CenterFluoroscopic procedure less than one hour slasoctc4522-59-08 15:40:00* Test Item Value Reference Range Interpretation Comments Coronavirus (PCR) (test code = Coronavirus (PCR)) NOT DETECTED NOTD ETECTED Hologic Aptima SARS-CoV-2 assay is a nucleic amplification test intended for the qualitative detection of RNA from SARS-CoV-2 from nasopharyngeal (DIPLOMATIC OFFICER) specimens. It is used under Emergency Use Authorization (EUA) by [facility].A positive result is indicative of the presence [...] for reprat testing oc clinically indicated.Tesing performed by:[facility] [employer] [address] [place] [address] [id number] hart MD, PhD [facility] CenterFluoroscopic procedure less than one hour vrgwcsrv8251-56-67 15:40:00* Test Item Value Reference Range Interpretation Comments Coronavirus (PCR) (test code = Coronavirus (PCR)) NOT DETECTED NOTD ETECTED Hologic Aptima SARS-CoV-2 assay is a nucleic amplification test intended for the qualitative detection of RNA from SARS-CoV-2 from nasopharyngeal (DIPLOMATIC OFFICER) specimens. It is used under Emergency Use Authorization (EUA) by [facility].A positive result is indicative of the presence [...] for reprat testing oc clinically indicated.Tesing performed by:[facility] [employer] [address] [place] [address] [id number] hart MD, PhD [facility] CenterFluoroscopic procedure less than one hour sitkpanr8292-60-59 15:40:00* Test Item Value Reference Range Interpretation Comments Coronavirus (PCR) (test code = Coronavirus (PCR)) NOT DETECTED NOTD ETECTED Exabregic Aptima SARS-CoV-2 assay is a nucleic amplification test intended for the qualitative detection of RNA from SARS-CoV-2 from nasopharyngeal (DIPLOMATIC OFFICER) specimens. It is used under Emergency Use Authorization (EUA) by [facility].A positive result is indicative of the presence [...] for reprat testing oc clinically indicated.Tesing performed by:[facility] [employer] [address] [place] [address] [id number] hart MD, PhD [facility] CenterFluoroscopic procedure less than one hour kyvaesqv4940-69-49 15:40:00* Test Item Value Reference Range Interpretation Comments Coronavirus (PCR) (test code = Coronavirus (PCR)) NOT DETECTED NOTD ETECTED Exabregic Aptima SARS-CoV-2 assay is a nucleic amplification test intended for the qualitative detection of RNA from SARS-CoV-2 from nasopharyngeal (DIPLOMATIC OFFICER) specimens. It is used under Emergency Use Authorization (EUA) by [facility].A positive result is indicative of the presence [...] for reprat testing oc clinically indicated.Tesing performed by:[facility] [employer] [address] [place] [address] [id number] Smith MD, PhD [facility] CenterBlood leukocytes automated count (number/volume)2019-10-27 13:50:00* Test Item Value Reference Range Interpretation Comments White Blood Count (test code = 6690-2) 7.16 4.8-10.8 [facility] Medical CenterBlood erythrocytes automated count (number/volume)2019-10-27 13:50:00* Test Item Value Reference Range Interpretation Comments Red Blood Count (test code = 789-8) 3.97 4.3-5.7 [facility] CenterBlood hemoglobin measurement (moles/volume)2019-10-27 13:50:00* Test Item Value Reference Range Interpretation Comments Hemoglobin (test code = 98368-8) 11.2 14.0-18.0 [facility] Medical CenterAutomated blood hematocrit (volume fraction)2019-10-27 13:50:00* Test Item Value Reference Range Interpretation Comments Hematocrit (test code = 4544-3) 35.7 38.2-49.6 [facility] Medical CenterAutomated erythrocyte mean corpuscular pmxwrg5432-70-74 13:50:00* Test Item Value Reference Range Interpretation Comments Mean Corpuscular Volume (test code = 787-2) 89.9 81-99 [facility] Medical CenterAutomated erythrocyte mean corpuscular hemoglobin (mass per erythrocyte)2019-10-27 13:50:00* Test Item Value Reference Range Interpretation Comments Mean Corpuscular Hemoglobin (test code = 785-6) 28.2 28-32 [facility] CenterAutomated erythrocyte mean corpuscular hemoglobin concentration measurement (mass/volume)2019-10-27 13:50:00* Test Item Value Reference Range Interpretation Comments Mean Corpuscular Hemoglobin Concent (test code = 786-4) 31.4 31-35 [facility] Medical CenterRDW ZqwQp-Rmu8732-87-30 13:50:00* Test Item Value Reference Range Interpretation Comments Red Cell Distribution Width (test code = 59746-5) 13.1 11.7 -14.4 [facility] CenterAutomated blood platelet count (count/volume)2019-10-27 13:50:00* Test Item Value Reference Range Interpretation Comments Platelet Count (test code = 777-3) 226 140-360 [facility] Medical CenterAutomated blood segmented neutrophil count as percentage of total kbxqkqptpj0374-60-54 13:50:00* Test Item Value Reference Range Interpretation Comments Neutrophils (%) (Auto) (test code = 18739-0) 85.1 38.7-80.0 [facility] Medical CenterAutomated blood lymphocyte count as percentage ot total eaorbulcbz1979-88-69 13:50:00* Test Item Value Reference Range Interpretation Comments Lymphocytes (%) (Auto) (test code = 736-9) 10.3 18.0-39.1 [facility] Medical CenterAutomated blood monocyte count as percentage of total joclgybjkf9290-45-51 13:50:00* Test Item Value Reference Range Interpretation Comments Monocytes (%) (Auto) (test code = 5905-5) 3.5 4.4-11.3 [facility] Medical CenterAutomated blood eosinophil count as percentage of total jczlzjhhjp3489-87-30 13:50:00* Test Item Value Reference Range Interpretation Comments Eosinophils (%) (Auto) (test code = 713-8) 0.1 0.0-6.0 [facility] Medical CenterAutomated blood basophil count as percentage of total eoensxkiqi8614-82-42 13:50:00* Test Item Value Reference Range Interpretation Comments Basophils (%) (Auto) (test code = 706-2) 0.7 0.0-1.0 [facility] Medical CenterFluoroscopic procedure less than one hour ruyimgrx7490-46-62 13:50:00* Test Item Value Reference Range Interpretation Comments IM GRANULOCYTES % (test code = IM GRANULOCYTES %) 0.3 0.0- 1.0 [facility] CenterAutomated blood neutrophil count 2019-10-27 13:50:00* Test Item Value Reference Range Interpretation Comments Neutrophils # (Auto) (test code = 751-8) 6.1 2.1-6.9 [facility] CenterBlood lymphocytes count (number/volume) 2019-10-27 13:50:00* Test Item Value Reference Range Interpretation Comments Lymphocytes # (Auto) (test code = 11029-7) 0.7 1.0-3.2 [facility] monocytes automated count (number/volume)2019-10-27 13:50:00* Test Item Value Reference Range Interpretation Comments Monocytes # (Auto) (test code = 742-7) 0.3 0.2-0.8 [facility] CenterAutomated blood eosinophil count 2019-10-27 13:50:00* Test Item Value Reference Range Interpretation Comments Eosinophils # (Auto) (test code = 711-2) 0.0 0.0-0.4 [facility] CenterAutomated blood basophil count (count/volume)2019-10-27 13:50:00* Test Item Value Reference Range Interpretation Comments Basophils # (Auto) (test code = 704-7) 0.1 0.0-0.1 [facility] CenterFluoroscopic procedure less than one hour eptolhrm4725-82-03 13:50:00* Test Item Value Reference Range Interpretation Comments Absolute Immature Granulocyte (auto (zeenat t code = Absolute Immature Granulocyte (auto) 0.02 0-0.1 [facility] leukocytes automated count (number/volume)2019-10-27 13:50:00* Test Item Value Reference Range Interpretation Comments White Blood Count (test code = 6690-2) 7.16 4.8-10.8 [facility] erythrocytes automated count (number/volume)2019-10-27 13:50:00* Test Item Value Reference Range Interpretation Comments Red Blood Count (test code = 789-8) 3.97 4.3-5.7 [facility] hemoglobin measurement (moles/volume)2019-10-27 13:50:00* Test Item Value Reference Range Interpretation Comments Hemoglobin (test code = 88714-8) 11.2 14.0-18.0 [facility] CenterAutomated blood hematocrit (volume fraction)2019-10-27 13:50:00* Test Item Value Reference Range Interpretation Comments Hematocrit (test code = 4544-3) 35.7 38.2-49.6 [facility] CenterAutomated erythrocyte mean corpuscular mkwiws6275-21-92 13:50:00* Test Item Value Reference Range Interpretation Comments Mean Corpuscular Volume (test code = 787-2) 89.9 81-99 [facility] CenterAutomated erythrocyte mean corpuscular hemoglobin (mass per erythrocyte)2019-10-27 13:50:00* Test Item Value Reference Range Interpretation Comments Mean Corpuscular Hemoglobin (test code = 785-6) 28.2 28-32 [facility] CenterAutomated erythrocyte mean corpuscular hemoglobin concentration measurement (mass/volume)2019-10-27 13:50:00* Test Item Value Reference Range Interpretation Comments Mean Corpuscular Hemoglobin Concent (test code = 786-4) 31.4 31-35 [facility] Medical CenterRDW TjyYf-Coh7403-03-30 13:50:00* Test Item Value Reference Range Interpretation Comments Red Cell Distribution Width (test code = 50263-3) 13.1 11.7 -14.4 [facility] CenterAutomated blood platelet count (count/volume)2019-10-27 13:50:00* Test Item Value Reference Range Interpretation Comments Platelet Count (test code = 777-3) 226 140-360 [facility] CenterAutomated blood segmented neutrophil count as percentage of total bktatymhkf9553-96-96 13:50:00* Test Item Value Reference Range Interpretation Comments Neutrophils (%) (Auto) (test code = 21567-6) 85.1 38.7-80.0 [facility] CenterAutomated blood lymphocyte count as percentage ot total lpymrmxxsf2451-31-13 13:50:00* Test Item Value Reference Range Interpretation Comments Lymphocytes (%) (Auto) (test code = 736-9) 10.3 18.0-39.1 [facility] CenterAutomated blood monocyte count as percentage of total nndiufsjjg6056-46-93 13:50:00* Test Item Value Reference Range Interpretation Comments Monocytes (%) (Auto) (test code = 5905-5) 3.5 4.4-11.3 [facility] CenterAutomated blood eosinophil count as percentage of total pksguujkmd8900-29-95 13:50:00* Test Item Value Reference Range Interpretation Comments Eosinophils (%) (Auto) (test code = 713-8) 0.1 0.0-6.0 [facility] CenterAutomated blood basophil count as percentage of total bhpiaeuepx9365-35-00 13:50:00* Test Item Value Reference Range Interpretation Comments Basophils (%) (Auto) (test code = 706-2) 0.7 0.0-1.0 [facility] CenterFluoroscopic procedure less than one hour umhywutd8096-76-26 13:50:00* Test Item Value Reference Range Interpretation Comments IM GRANULOCYTES % (test code = IM GRANULOCYTES %) 0.3 0.0- 1.0 [facility] CenterAutomated blood neutrophil count 2019-10-27 13:50:00* Test Item Value Reference Range Interpretation Comments Neutrophils # (Auto) (test code = 751-8) 6.1 2.1-6.9 [facility] CenterBlood lymphocytes count (number/volume) 2019-10-27 13:50:00* Test Item Value Reference Range Interpretation Comments Lymphocytes # (Auto) (test code = 58255-9) 0.7 1.0-3.2 [facility] CenterBlood monocytes automated count (number/volume)2019-10-27 13:50:00* Test Item Value Reference Range Interpretation Comments Monocytes # (Auto) (test code = 742-7) 0.3 0.2-0.8 [facility] CenterAutomated blood eosinophil count 2019-10-27 13:50:00* Test Item Value Reference Range Interpretation Comments Eosinophils # (Auto) (test code = 711-2) 0.0 0.0-0.4 [facility] CenterAutomated blood basophil count (count/volume)2019-10-27 13:50:00* Test Item Value Reference Range Interpretation Comments Basophils # (Auto) (test code = 704-7) 0.1 0.0-0.[address] [facility] CenterFluoroscopic procedure less than one hour ocuegefh4892-99-50 13:50:00* Test Item Value Reference Range Interpretation Comments Absolute Immature Granulocyte (auto (zeenat t code = Absolute Immature Granulocyte (auto) 0.02 0-0.1 [facility] CenterBl[facility] leukocytes automated count (number/volume)2019-10-27 13:50:00* Test Item Value Reference Range Interpretation Comments White Blood Count (test code = 6690-2) 7.16 4.8-10.8 [facility] erythrocytes automated count (number/volume)2019-10-27 13:50:00* Test Item Value Reference Range Interpretation Comments Red Blood Count (test code = 789-8) 3.97 4.3-5.7 [facility] (moles/volume)2019-10-27 13:50:00* Test Item Value Reference Range Interpretation Comments Hemoglobin (test code = 67134-8) 11.2 14.0-18.0 [facility] CenterAutomated blood hematocrit (volume fraction)2019-10-27 13:50:00* Test Item Value Reference Range Interpretation Comments Hematocrit (test code = 4544-3) 35.7 38.2-49.6 [facility] CenterAutomated erythrocyte mean corpuscular menexy8536-10-26 13:50:00* Test Item Value Reference Range Interpretation Comments Mean Corpuscular Volume (test code = 787-2) 89.9 81-99 [facility] CenterAutomated erythrocyte mean corpuscular hemoglobin (mass per erythrocyte)2019-10-27 13:50:00* Test Item Value Reference Range Interpretation Comments Mean Corpuscular Hemoglobin (test code = 785-6) 28.2 28-32 [facility] CenterAutomated erythrocyte mean corpuscular hemoglobin concentration measurement (mass/volume)2019-10-27 13:50:00* Test Item Value Reference Range Interpretation Comments Mean Corpuscular Hemoglobin Concent (test code = 786-4) 31.4 31-35 [facility] Medical CenterRDW PlkDs-Kib4135-09-30 13:50:00* Test Item Value Reference Range Interpretation Comments Red Cell Distribution Width (test code = 66864-5) 13.1 11.7 -14.4 [facility] CenterAutomated blood platelet count (count/volume)2019-10-27 13:50:00* Test Item Value Reference Range Interpretation Comments Platelet Count (test code = 777-3) 226 140-360 [facility] CenterAutomated blood segmented neutrophil count as percentage of total eiahicgjxi2840-26-06 13:50:00* Test Item Value Reference Range Interpretation Comments Neutrophils (%) (Auto) (test code = 77397-5) 85.1 38.7-80.0 [facility] CenterAutomated blood lymphocyte count as percentage ot total unwlgoijot7558-65-45 13:50:00* Test Item Value Reference Range Interpretation Comments Lymphocytes (%) (Auto) (test code = 736-9) 10.3 18.0-39.1 [facility] CenterAutomated blood monocyte count as percentage of total hbpinuomxn0452-54-55 13:50:00* Test Item Value Reference Range Interpretation Comments Monocytes (%) (Auto) (test code = 5905-5) 3.5 4.4-11.3 [facility] CenterAutomated blood eosinophil count as percentage of total hcykbmkjrd3075-29-71 13:50:00* Test Item Value Reference Range Interpretation Comments Eosinophils (%) (Auto) (test code = 713-8) 0.1 0.0-6.0 [facility] CenterAutomated blood basophil count as percentage of total vtzbwoosrd6387-20-17 13:50:00* Test Item Value Reference Range Interpretation Comments Basophils (%) (Auto) (test code = 706-2) 0.7 0.0-1.0 [facility] CenterFluoroscopic procedure less than one hour fycdckoq1649-57-04 13:50:00* Test Item Value Reference Range Interpretation Comments IM GRANULOCYTES % (test code = IM GRANULOCYTES %) 0.3 0.0- 1.0 [facility] CenterAutomated blood neutrophil count 2019-10-27 13:50:00* Test Item Value Reference Range Interpretation Comments Neutrophils # (Auto) (test code = 751-8) 6.1 2.1-6.9 [facility] CenterBlood lymphocytes count (number/volume) 2019-10-27 13:50:00* Test Item Value Reference Range Interpretation Comments Lymphocytes # (Auto) (test code = 48517-3) 0.7 1.0-3.2 [facility] CenterBlood monocytes automated count (number/volume)2019-10-27 13:50:00* Test Item Value Reference Range Interpretation Comments Monocytes # (Auto) (test code = 742-7) 0.3 0.2-0.8 [facility] CenterAutomated blood eosinophil count 2019-10-27 13:50:00* Test Item Value Reference Range Interpretation Comments Eosinophils # (Auto) (test code = 711-2) 0.0 0.0-0.4 [facility] blood basophil count (count/volume)2019-10-27 13:50:00* Test Item Value Reference Range Interpretation Comments Basophils # (Auto) (test code = 704-7) 0.1 0.0-0.1 [facility] CenterFluoroscopic procedure less than one hour hcphusth9951-55-47 13:50:00* Test Item Value Reference Range Interpretation Comments Absolute Immature Granulocyte (auto (zeenat t code = Absolute Immature Granulocyte (auto) 0.02 0-0.1 [facility] leukocytes automated count (number/volume)2019-10-27 13:50:00* Test Item Value Reference Range Interpretation Comments White Blood Count (test code = 6690-2) 7.16 4.8-10.8 [facility] erythrocytes automated count (number/volume)2019-10-27 13:50:00* Test Item Value Reference Range Interpretation Comments Red Blood Count (test code = 789-8) 3.97 4.3-5.7 [facility] hemoglobin measurement (moles/volume)2019-10-27 13:50:00* Test Item Value Reference Range Interpretation Comments Hemoglobin (test code = 30609-5) 11.2 14.0-18.0 [facility] blood hematocrit (volume fraction)2019-10-27 13:50:00* Test Item Value Reference Range Interpretation Comments Hematocrit (test code = 4544-3) 35.7 38.2-49.6 [facility] CenterAutomated erythrocyte mean corpuscular ioensi9605-78-04 13:50:00* Test Item Value Reference Range Interpretation Comments Mean Corpuscular Volume (test code = 787-2) 89.9 81-99 [facility] CenterAutomated erythrocyte mean corpuscular hemoglobin (mass per erythrocyte)2019-10-27 13:50:00* Test Item Value Reference Range Interpretation Comments Mean Corpuscular Hemoglobin (test code = 785-6) 28.2 28-32 [facility] CenterAut[facility] mean corpuscular hemoglobin concentration measurement (mass/volume)2019-10-27 13:50:00* Test Item Value Reference Range Interpretation Comments Mean Corpuscular Hemoglobin Concent (test code = 786-4) 31.4 31-35 [facility] CenterRDW YwyXu-Lux8768-69-30 13:50:00* Test Item Value Reference Range Interpretation Comments Red Cell Distribution Width (test code = 95454-3) 13.1 11.7 -14.4 [facility] CenterAutunc health app[facility]ianed blood platelet count (count/volume)2019-10-27 13:50:00* Test Item Value Reference Range Interpretation Comments Platelet Count (test code = 777-3) 226 140-360 [facility] CenterAutunc health app[facility]ianed blood segmented neutrophil count as percentage of total odolfkwpcv8252-04-94 13:50:00* Test Item Value Reference Range Interpretation Comments Neutrophils (%) (Auto) (test code = 38704-1) 85.1 38.7-80.0 [facility] CenterAutomated blood lymphocyte count as percentage ot total rawxhtfkud6335-70-44 13:50:00* Test Item Value Reference Range Interpretation Comments Lymphocytes (%) (Auto) (test code = 736-9) 10.3 18.0-39.1 [facility] CenterAutomated blood monocyte count as percentage of total huphbiitcn6840-43-67 13:50:00* Test Item Value Reference Range Interpretation Comments Monocytes (%) (Auto) (test code = 5905-5) 3.5 4.4-11.3 [facility] CenterAutomated blood eosinophil count as percentage of total xzivhmqgmi4757-08-16 13:50:00* Test Item Value Reference Range Interpretation Comments Eosinophils (%) (Auto) (test code = 713-8) 0.1 0.0-6.0 [facility] CenterAutomated blood basophil count as percentage of total bqetrgufyg1413-86-26 13:50:00* Test Item Value Reference Range Interpretation Comments Basophils (%) (Auto) (test code = 706-2) 0.7 0.0-1.0 [facility] CenterFluoroscopic procedure less than one hour degrthzo9289-70-68 13:50:00* Test Item Value Reference Range Interpretation Comments IM GRANULOCYTES % (test code = IM GRANULOCYTES %) 0.3 0.0- 1.0 [facility] CenterAutomated blood neutrophil count 2019-10-27 13:50:00* Test Item Value Reference Range Interpretation Comments Neutrophils # (Auto) (test code = 751-8) 6.1 2.1-6.9 [facility] CenterBlood lymphocytes count (number/volume) 2019-10-27 13:50:00* Test Item Value Reference Range Interpretation Comments Lymphocytes # (Auto) (test code = 67230-4) 0.7 1.0-3.2 [facility] CenterBlood monocytes automated count (number/volume)2019-10-27 13:50:00* Test Item Value Reference Range Interpretation Comments Monocytes # (Auto) (test code = 742-7) 0.3 0.2-0.8 [facility] CenterAutomated blood eosinophil count 2019-10-27 13:50:00* Test Item Value Reference Range Interpretation Comments Eosinophils # (Auto) (test code = 711-2) 0.0 0.0-0.4 [facility] CenterAutomated blood basophil count (count/volume)2019-10-27 13:50:00* Test Item Value Reference Range Interpretation Comments Basophils # (Auto) (test code = 704-7) 0.1 0.0-0.1 [facility] CenterFluoroscopic procedure less than one hour swrtyhib2754-51-87 13:50:00* Test Item Value Reference Range Interpretation Comments Absolute Immature Granulocyte (auto (zeenat t code = Absolute Immature Granulocyte (auto) 0.02 0-0.1 [facility] CenterBlwin[facility] leukocytes automated count (number/volume)2019-10-27 13:50:00* Test Item Value Reference Range Interpretation Comments White Blood Count (test code = 6690-2) 7.16 4.8-10.8 [facility] erythrocytes automated count (number/volume)2019-10-27 13:50:00* Test Item Value Reference Range Interpretation Comments Red Blood Count (test code = 789-8) 3.97 4.3-5.7 [facility] CenterBlood hemoglobin measurement (moles/volume)2019-10-27 13:50:00* Test Item Value Reference Range Interpretation Comments Hemoglobin (test code = 89361-6) 11.2 14.0-18.0 [facility] CenterAutomated blood hematocrit (volume fraction)2019-10-27 13:50:00* Test Item Value Reference Range Interpretation Comments Hematocrit (test code = 4544-3) 35.7 38.2-49.6 [facility] CenterAutomated erythrocyte mean corpuscular ugqmbh7690-87-80 13:50:00* Test Item Value Reference Range Interpretation Comments Mean Corpuscular Volume (test code = 787-2) 89.9 81-99 [facility] CenterAutomated erythrocyte mean corpuscular hemoglobin (mass per erythrocyte)2019-10-27 13:50:00* Test Item Value Reference Range Interpretation Comments Mean Corpuscular Hemoglobin (test code = 785-6) 28.2 28-32 [facility] CenterAutomated erythrocyte mean corpuscular hemoglobin concentration measurement (mass/volume)2019-10-27 13:50:00* Test Item Value Reference Range Interpretation Comments Mean Corpuscular Hemoglobin Concent (test code = 786-4) 31.4 31-35 [facility] CenterRDW QmzWd-Xco4264-57-30 13:50:00* Test Item Value Reference Range Interpretation Comments Red Cell Distribution Width (test code = 59819-3) 13.1 11.7 -14.4 [facility] CenterAutomated blood platelet count (count/volume)2019-10-27 13:50:00* Test Item Value Reference Range Interpretation Comments Platelet Count (test code = 777-3) 226 140-360 [facility] CenterAutomated blood segmented neutrophil count as percentage of total ucmxjvrfbo5046-99-61 13:50:00* Test Item Value Reference Range Interpretation Comments Neutrophils (%) (Auto) (test code = 03646-4) 85.1 38.7-80.0 [facility] CenterAutomated blood lymphocyte count as percentage ot total sjvrmeptsw6406-07-84 13:50:00* Test Item Value Reference Range Interpretation Comments Lymphocytes (%) (Auto) (test code = 736-9) 10.3 18.0-39.1 [facility] CenterAutomated blood monocyte count as percentage of total zofqyjhaki4500-47-88 13:50:00* Test Item Value Reference Range Interpretation Comments Monocytes (%) (Auto) (test code = 5905-5) 3.5 4.4-11.3 [facility] CenterAutomated blood eosinophil count as percentage of total qcgbmfdfww7863-12-47 13:50:00* Test Item Value Reference Range Interpretation Comments Eosinophils (%) (Auto) (test code = 713-8) 0.1 0.0-6.0 [facility] CenterAutomated blood basophil count as percentage of total odjqkftmjd5017-75-35 13:50:00* Test Item Value Reference Range Interpretation Comments Basophils (%) (Auto) (test code = 706-2) 0.7 0.0-1.0 [facility] CenterFluoroscopic procedure less than one hour afpzncnq5314-89-09 13:50:00* Test Item Value Reference Range Interpretation Comments IM GRANULOCYTES % (test code = IM GRANULOCYTES %) 0.3 0.0- 1.0 [facility] CenterAutomated blood neutrophil count 2019-10-27 13:50:00* Test Item Value Reference Range Interpretation Comments Neutrophils # (Auto) (test code = 751-8) 6.1 2.1-6.9 [facility] lymphocytes count (number/volume) 2019-10-27 13:50:00* Test Item Value Reference Range Interpretation Comments Lymphocytes # (Auto) (test code = 41531-8) 0.7 1.0-3.2 [facility] monocytes automated count (number/volume)2019-10-27 13:50:00* Test Item Value Reference Range Interpretation Comments Monocytes # (Auto) (test code = 742-7) 0.3 0.2-0.8 [facility] CenterAutunc health [facility]ed blood eosinophil count 2019-10-27 13:50:00* Test Item Value Reference Range Interpretation Comments Eosinophils # (Auto) (test code = 711-2) 0.0 0.0-0.4 [facility] CenterAutomated blood basophil count (count/volume)2019-10-27 13:50:00* Test Item Value Reference Range Interpretation Comments Basophils # (Auto) (test code = 704-7) 0.1 0.0-0.1 [facility] CenterFluoroscopic procedure less than one hour lwnivycx6431-30-43 13:50:00* Test Item Value Reference Range Interpretation Comments Absolute Immature Granulocyte (auto (zeenat t code = Absolute Immature Granulocyte (auto) 0.02 0-0.1 [facility] leukocytes automated count (number/volume)2019-10-06 05:15:00* Test Item Value Reference Range Interpretation Comments White Blood Count (test code = 6690-2) 7.83 4.8-10.8 [facility] erythrocytes automated count (number/volume)2019-10-06 05:15:00* Test Item Value Reference Range Interpretation Comments Red Blood Count (test code = 789-8) 3.95 4.3-5.7 [facility] hemoglobin measurement (moles/volume)2019-10-06 05:15:00* Test Item Value Reference Range Interpretation Comments Hemoglobin (test code = 63114-3) 11.2 14.0-18.0 [facility] CenterAutomated blood hematocrit (volume fraction)2019-10-06 05:15:00* Test Item Value Reference Range Interpretation Comments Hematocrit (test code = 4544-3) 35.5 38.2-49.6 [facility] CenterAutomated erythrocyte mean corpuscular aykdoj0034-21-51 05:15:00* Test Item Value Reference Range Interpretation Comments Mean Corpuscular Volume (test code = 787-2) 89.9 81-99 [facility] CenterAutomated erythrocyte mean corpuscular hemoglobin (mass per erythrocyte)2019-10-06 05:15:00* Test Item Value Reference Range Interpretation Comments Mean Corpuscular Hemoglobin (test code = 785-6) 28.4 28-32 [facility] CenterAutomated erythrocyte mean corpuscular hemoglobin concentration measurement (mass/volume)2019-10-06 05:15:00* Test Item Value Reference Range Interpretation Comments Mean Corpuscular Hemoglobin Concent (test code = 786-4) 31.5 31-35 [facility] CenterRDW GcaYo-Gtv4381-03-09 05:15:00* Test Item Value Reference Range Interpretation Comments Red Cell Distribution Width (test code = 31306-0) 13.4 11.7 -14.4 [facility] CenterAutunc health [facility]ed blood platelet count (count/volume)2019-10-06 05:15:00* Test Item Value Reference Range Interpretation Comments Platelet Count (test code = 777-3) 243 140-360 [facility] CenterAutomated blood segmented neutrophil count as percentage of total bltqhuuoze5545-67-07 05:15:00* Test Item Value Reference Range Interpretation Comments Neutrophils (%) (Auto) (test code = 61746-1) 57.1 38.7-80.0 [facility] CenterAutomated blood lymphocyte count as percentage ot total hjcjxdhfjw4949-39-40 05:15:00* Test Item Value Reference Range Interpretation Comments Lymphocytes (%) (Auto) (test code = 736-9) 31.9 18.0-39.1 [facility] CenterAutomated blood monocyte count as percentage of total qwgkqsgeyf5932-75-96 05:15:00* Test Item Value Reference Range Interpretation Comments Monocytes (%) (Auto) (test code = 5905-5) 7.8 4.4-11.3 [facility] CenterAutomated blood eosinophil count as percentage of total dtvsancxnz2020-71-92 05:15:00* Test Item Value Reference Range Interpretation Comments Eosinophils (%) (Auto) (test code = 713-8) 2.2 0.0-6.0 [facility] CenterAutomated blood basophil count as percentage of total rwfymvgiww7517-39-08 05:15:00* Test Item Value Reference Range Interpretation Comments Basophils (%) (Auto) (test code = 706-2) 0.9 0.0-1.0 [facility] CenterFluoroscopic procedure less than one hour ozthrfjn9359-70-94 05:15:00* Test Item Value Reference Range Interpretation Comments IM GRANULOCYTES % (test code = IM GRANULOCYTES %) 0.1 0.0- 1.0 [facility] CenterAutomated blood neutrophil count 2019-10-06 05:15:00* Test Item Value Reference Range Interpretation Comments Neutrophils # (Auto) (test code = 751-8) 4.5 2.1-6.9 [facility] CenterBlood lymphocytes count (number/volume) 2019-10-06 05:15:00* Test Item Value Reference Range Interpretation Comments Lymphocytes # (Auto) (test code = 68076-2) 2.5 1.0-3.2 [facility] CenterBlood monocytes automated count (number/volume)2019-10-06 05:15:00* Test Item Value Reference Range Interpretation Comments Monocytes # (Auto) (test code = 742-7) 0.6 0.2-0.8 [facility] CenterAutomated blood eosinophil count 2019-10-06 05:15:00* Test Item Value Reference Range Interpretation Comments Eosinophils # (Auto) (test code = 711-2) 0.2 0.0-0.4 [facility] CenterAutomated blood basophil count (count/volume)2019-10-06 05:15:00* Test Item Value Reference Range Interpretation Comments Basophils # (Auto) (test code = 704-7) 0.1 0.0-0.1 [facility] CenterFluoroscopic procedure less than one hour ixxlwxxd1448-49-24 05:15:00* Test Item Value Reference Range Interpretation Comments Absolute Immature Granulocyte (auto (zeenat t code = Absolute Immature Granulocyte (auto) 0.01 0-0.1 [facility] sodium measurement (moles/volume)2019-10-06 05:15:00* Test Item Value Reference Range Interpretation Comments Sodium Level (test code = 2951-2) 135 136-145 [facility] potassium measurement (moles/volume)2019-10-06 05:15:00* Test Item Value Reference Range Interpretation Comments Potassium Level (test code = 2823-3) 3.4 3.5-5.1 [facility] chloride measurement (moles/volume)2019-10-06 05:15:00* Test Item Value Reference Range Interpretation Comments Chloride Level (test code = 2075-0) 99 98-107 [facility] carbon dioxide, total measurement (moles/volume)2019-10-06 05:15:00* Test Item Value Reference Range Interpretation Comments Carbon Dioxide Level (test code = 2028-9) 29 22-29 [facility] anion ekz6537-47-81 05:15:00* Test Item Value Reference Range Interpretation Comments Anion Gap (test code = 88722-6) 10.4 8-16 [facility] urea nitrogen measurement (mass/volume)2019-10-06 05:15:00* Test Item Value Reference Range Interpretation Comments Blood Urea Nitrogen (test code = 3094-0) < 5 7-26 [facility] creatinine measurement (mass/volume)2019-10-06 05:15:00* Test Item Value Reference Range Interpretation Comments Creatinine (test code = 2160-0) 1.04 0.72-1.25 [facility] urea nitrogen/creatinine mass nxvpk5507-72-35 05:15:00* Test Item Value Reference Range Interpretation Comments BUN/Creatinine Ratio (test code = 3097-3) 5 6-25 [facility] CenterEstimated glomerular filtration rate (GFR) oxkvaunayjnyw0889-00-67 05:15:00* Test Item Value Reference Range Interpretation Comments Estimat Glomerular Filtration Rate (test code = 638881356) > 60 >60 Ranges were taken from the National Kidney Disease Education Program and the [facility] Kidney Foundation literature.Reference ranges:60 or greater: Upytpq26-66 ( for 3 consecutive months): Chronic kidney disease 15 or less: Kidney failureCHRIST[facility] – Medical CenterGlucose gtuukshyhih9219-16-15 05:15:00* Test Item Value Reference Range Interpretation Comments Glucose Level (test code = ZGD2515) 202 74-118 [facility] plasma calcium measurement (mass/volume)2019-10-06 05:15:00* Test Item Value Reference Range Interpretation Comments Calcium Level (test code = 30275-9) 8.7 8.4-10.2 [facility] CenterCapillary blood glucose measurement by glucometer (mass/volume)2019-10-05 19:48:00* Test Item Value Reference Range Interpretation Comments Bedside Glucose (test code = 43415-2) 233 70-120 Meter ID: [id number] [facility] xgbolgxktmmfb6833-98-47 06:00:00* Test Item Value Reference Range Interpretation Comments Urine Color (test code = 5778-6) YELLOW YELLOW [facility] CenterUrine jixwhrm8945-36-84 06:00:00* Test Item Value Reference Range Interpretation Comments Urine Clarity (test code = 26606-6) CLEAR CLEAR [facility] Hospitalpecific gravity of Urine by Test strip 2019-10-05 06:00:00* Test Item Value Reference Range Interpretation Comments Urine Specific [place] (test code = 5811-5) 1.020 1.010-1.02 5 [facility] CenterUrine pH measurement by automated test riqzg4128-24-37 06:00:00* Test Item Value Reference Range Interpretation Comments Urine pH (test code = 04181-1) 7.5 5-7 [facility] CenterUrine leukocyte esterase detection by zkoffrgz7944-61-19 06:00:00* Test Item Value Reference Range Interpretation Comments Urine Leukocyte Esterase (test code = 5799-2) NEGATIVE NEGATIVE [facility] CenterUrine nitrite fpdwzdgzl7948-77-09 06:00:00* Test Item Value Reference Range Interpretation Comments Urine Nitrite (test code = 45759-7) NEGATIVE NEGATIVE [facility] CenterUrine protein measurement by test strip (mass/volume)2019-10-05 06:00:00* Test Item Value Reference Range Interpretation Comments Urine Protein (test code = 5804-0) NEGATIVE NEGATIVE [facility] CenterUrine glucose ujesteabn2883-09-52 06:00:00* Test Item Value Reference Range Interpretation Comments Urine Glucose (UA) (test code = 2349-9) 2+ NEGATIVE [facility] CenterUrine ketones detection by automated test zlmbj6386-14-76 06:00:00* Test Item Value Reference Range Interpretation Comments Urine Ketones (test code = 43684-3) TRACE NEGATIVE [facility] CenterUrine opiates screening yqaw1764-54-62 06:00:00* Test Item Value Reference Range Interpretation Comments Urine Opiates Screen (test code = 83314-1) POSITIVE NEGATIVE This test provides only a screen. Positive results should be repeated by a confi rmatory test.[facility] CenterBarbiturates screen, urine 2019-10-05 06:00:00* Test Item Value Reference Range Interpretation Comments Urine Barbiturates Screen (test code = 781326385) NEGATIVE NEGA TIVE [facility] CenterUrine phencyclidine detection by screening gaasbv5661-50-36 06:00:00* Test Item Value Reference Range Interpretation Comments Urine Phencyclidine Screen (test code = 72447-8) NEGATIVE NEGAT [place] [facility] CenterUrine amphetamines detection by screen method > 1000 ng/iH8744-74-16 06:00:00* Test Item Value Reference Range Interpretation Comments Urine Amphetamines Screen (test code = 40037-3) NEGATIVE NEGATI VE [facility] CenterFluoroscopic procedure less than one hour lubrcsym6209-91-26 06:00:00* Test Item Value Reference Range Interpretation Comments Urine Methamphetamines Screen (test code = Urine Metha mphetamines Screen) NEGATIVE NEGATIVE [facility] CenterUrine benzodiazepines detection by screening bhqldw9093-06-91 06:00:00* Test Item Value Reference Range Interpretation Comments Urine Benzodiazepines Screen (test code = 49734-0) NEGATIVE NEG ATIVE [facility] CenterUrine cocaine measurement (mass/volume) 2019-10-05 06:00:00* Test Item Value Reference Range Interpretation Comments Urine Cocaine Screen (test code = 3398-5) NEGATIVE NEGATIVE [facility] CenterUrine cannabinoids detection by screening yuwpxe5582-95-90 06:00:00* Test Item Value Reference Range Interpretation Comments Urine Cannabinoids Screen (test code = 79521-7) POSITIVE NEGATI VE This test provides only a screen. Positive results should be repeated by a confi rmatory test.[facility] CenterUrine methadone screen 2019-10-05 06:00:00* Test Item Value Reference Range Interpretation Comments Urine Methadone Screen (test code = 51506-3) NEGATIVE NEGATIVE THESE RESULTS ARE FOR MEDICAL TREATMENT ONLYTHIS REPORT CONTAINS UNCONFIR MED SCREENING RESULTS*POSITIVE RESULTS WILL BE CONFIRMED BY REFERENCE LAB UPON R EQUEST CUT-OFFDRUG CLASS CONCENTRATION ng/mLAmphetamines 1000Methamphetamines 1000Cocaine Metabolite 300Opiate 300Phencyc lidine 25Cannabinoid 50Barbiturates 300Benzodiazepine 300Methadone 300[facility] [facility]ilin[facility] by test strip (mass/volume)2019-10-05 06:00:00* Test Item Value Reference Range Interpretation Comments Urine Urobilinogen (test code = 90619-9) 0.2 0.2-1 [facility] total bilirubin measurement (mass/volume)2019-10-05 06:00:00* Test Item Value Reference Range Interpretation Comments Urine Bilirubin (test code = 1978-6) NEGATIVE NEGATIVE [facility] CenterU[facility] erythrocytes [id number] 06:00:00* Test Item Value Reference Range Interpretation Comments Urine Blood (test code = 28026-6) TRACE NEGATIVE [facility] CenterAutomated urine sediment leukocyte count by microscopy (number/high power field)2019-10-05 06:00:00* Test Item Value Reference Range Interpretation Comments Urine WBC (test code = 5821-4) 0-5 0-5 [facility] CenterErythrocytes detection in urine sediment by light loqfryihye2182-67-88 06:00:00* Test Item Value Reference Range Interpretation Comments Urine RBC (test code = 72417-6) 0-5 0-5 [facility] CenterBacteria detection in urine sediment by light [id number] 06:00:00* Test Item Value Reference Range Interpretation Comments Urine Bacteria (test code = 06658-6) RARE NONE [facility] CenterEpithelial cells detection in urine sediment by light [id number] 06:00:00* Test Item Value Reference Range Interpretation Comments Urine Epithelial Cells (test code = 38421-8) RARE NONE [facility] CenterUrine color uvugdimdgsgwo0592-91-82 06:00:00* Test Item Value Reference Range Interpretation Comments Urine Color (test code = 5778-6) YELLOW YELLOW [facility] CenterUrine [id number] 06:00:00* Test Item Value Reference Range Interpretation Comments Urine Clarity (test code = 04565-6) [facility] by Test strip 2019-10-05 06:00:00* Test Item Value Reference Range Interpretation Comments Urine Specific Stevenson (test code = 5811-5) 1.020 1.010-1.02 5 [facility] CenterU[facility] pH measurement by automated test [id number] 06:00:00* Test Item Value Reference Range Interpretation Comments Urine pH (test code = 79680-2) 7.5 5-7 [facility] CenterUrine leukocyte esterase detection by kmrkinzp4031-00-95 06:00:00* Test Item Value Reference Range Interpretation Comments Urine Leukocyte Esterase (test code = 5799-2) NEGATIVE NEGATIVE [facility] CenterUrine nitrite [id number] 06:00:00* Test Item Value Reference Range Interpretation Comments Urine Nitrite (test code = 17136-3) NEGATIVE NEGATIVE [facility] CenterUrine protein measurement by test strip (mass/volume)2019-10-05 06:00:00* Test Item Value Reference Range Interpretation Comments Urine Protein (test code = 5804-0) NEGATIVE NEGATIVE [facility] CenterUrine glucose qwcxlmuci0947-27-51 06:00:00* Test Item Value Reference Range Interpretation Comments Urine Glucose (UA) (test code = 2349-9) 2+ NEGATIVE [facility] CenterUrine ketones detection by automated test [id number] 06:00:00* Test Item Value Reference Range Interpretation Comments Urine Ketones (test code = 09150-7) TRACE NEGATIVE [facility] CenterUrine opiates screening [id number] 06:00:00* Test Item Value Reference Range Interpretation Comments Urine Opiates Screen (test code = 75525-6) POSITIVE NEGATIVE This test provides only a screen. Positive results should be repeated by a confi rmatory test.[facility] CenterBarbiturates screen, urine 2019-10-05 06:00:00* Test Item Value Reference Range Interpretation Comments Urine Barbiturates Screen (test code = 937437006) NEGATIVE NEGA TIVE [facility] CenterUrine phencyclidine detection by screening vwhfwz8080-90-89 06:00:00* Test Item Value Reference Range Interpretation Comments Urine Phencyclidine Screen (test code = 62023-5) NEGATIVE NEGAT [place] [facility] CenterUrine amphetamines detection by screen method > 1000 ng/[id number] 06:00:00* Test Item Value Reference Range Interpretation Comments Urine Amphetamines Screen (test code = 10986-2) NEGATIVE NEGATI VE [facility] CenterFluoroscopic procedure less than one hour dcnnqcea6469-40-41 06:00:00* Test Item Value Reference Range Interpretation Comments Urine Methamphetamines Screen (test code = Urine Metha mphetamines Screen) NEGATIVE NEGATIVE [facility] CenterUrine benzodiazepines detection by screening ktysjj3196-98-62 06:00:00* Test Item Value Reference Range Interpretation Comments Urine Benzodiazepines Screen (test code = 47651-7) NEGATIVE NEG ATIVE [facility] CenterUrine cocaine measurement (mass/volume) 2019-10-05 06:00:00* Test Item Value Reference Range Interpretation Comments Urine Cocaine Screen (test code = 3398-5) NEGATIVE NEGATIVE [facility] CenterUrine cannabinoids detection by screening enuonl1458-87-48 06:00:00* Test Item Value Reference Range Interpretation Comments Urine Cannabinoids Screen (test code = 41077-6) POSITIVE NEGATI VE This test provides only a screen. Positive results should be repeated by a confi rmatory test.[facility] CenterUrine methadone screen 2019-10-05 06:00:00* Test Item Value Reference Range Interpretation Comments Urine Methadone Screen (test code = 58702-0) NEGATIVE NEGATIVE THESE RESULTS ARE FOR MEDICAL TREATMENT ONLYTHIS REPORT CONTAINS UNCONFIR MED SCREENING RESULTS*POSITIVE RESULTS WILL BE CONFIRMED BY REFERENCE LAB UPON R EQUEST CUT-OFFDRUG CLASS CONCENTRATION ng/mLAmphetamines 1000Methamphetamines 1000Cocaine Metabolite 300Opiate 300Phencyc lidine 25Cannabinoid 50Barbiturates 300Benzodiazepine 300Methadone 300[facility] CenterUrine urobilinogen measurement by test strip (mass/volume)2019-10-05 06:00:00* Test Item Value Reference Range Interpretation Comments Urine Urobilinogen (test code = 93712-5) 0.2 0.2-1 [facility] CenterUrine total bilirubin measurement (mass/volume)2019-10-05 06:00:00* Test Item Value Reference Range Interpretation Comments Urine Bilirubin (test code = 1978-6) NEGATIVE NEGATIVE [facility] CenterUrine erythrocytes [id number] 06:00:00* Test Item Value Reference Range Interpretation Comments Urine Blood (test code = 26517-3) TRACE NEGATIVE [facility] CenterAutomated urine sediment leukocyte count by microscopy (number/high power field)2019-10-05 06:00:00* Test Item Value Reference Range Interpretation Comments Urine WBC (test code = 5821-4) 0-5 0-5 [facility] CenterErythrocytes detection in urine sediment by light qcmxyfmozf9627-11-78 06:00:00* Test Item Value Reference Range Interpretation Comments Urine RBC (test code = 62777-7) 0-5 0-5 [facility] CenterBacteria detection in urine sediment by light mcjwksgsdy9805-36-95 06:00:00* Test Item Value Reference Range Interpretation Comments Urine Bacteria (test code = 75253-4) RARE NONE [facility] CenterEpithelial cells detection in urine sediment by light eiblrwisfd4645-73-18 06:00:00* Test Item Value Reference Range Interpretation Comments Urine Epithelial Cells (test code = 29878-0) RARE NONE [facility] CenterUrine color ezsmehqdadruw4441-78-31 06:00:00* Test Item Value Reference Range Interpretation Comments Urine Color (test code = 5778-6) YELLOW YELLOW [facility] CenterUrine [id number] 06:00:00* Test Item Value Reference Range Interpretation Comments Urine Clarity (test code = 46431-1) [facility]AR [facility]pecific [facility] by Test strip 2019-10-05 06:00:00* Test Item Value Reference Range Interpretation Comments Urine Specific Stevenson (test code = 5811-5) 1.020 1.010-1.02 5 [facility] CenterUrine pH measurement by automated test [id number] 06:00:00* Test Item Value Reference Range Interpretation Comments Urine pH (test code = 68404-4) 7.5 5-7 [facility] CenterUrine leukocyte esterase detection by zaomwmgz9709-97-63 06:00:00* Test Item Value Reference Range Interpretation Comments Urine Leukocyte Esterase (test code = 5799-2) NEGATIVE NEGATIVE [facility] CenterUrine nitrite ooktbnmmh5982-17-93 06:00:00* Test Item Value Reference Range Interpretation Comments Urine Nitrite (test code = 51819-9) NEGATIVE NEGATIVE [facility] CenterUrine protein measurement by test strip (mass/volume)2019-10-05 06:00:00* Test Item Value Reference Range Interpretation Comments Urine Protein (test code = 5804-0) NEGATIVE NEGATIVE [facility] CenterUrine glucose [id number] 06:00:00* Test Item Value Reference Range Interpretation Comments Urine Glucose (UA) (test code = 2349-9) 2+ NEGATIVE [facility] CenterUrine ketones detection by automated test [id number] 06:00:00* Test Item Value Reference Range Interpretation Comments Urine Ketones (test code = 68369-1) TRACE NEGATIVE [facility] CenterUrine opiates screening [id number] 06:00:00* Test Item Value Reference Range Interpretation Comments Urine Opiates Screen (test code = 43468-9) POSITIVE NEGATIVE This test provides only a screen. Positive results should be repeated by a confi rmatory test.[facility] CenterBarbiturates screen, urine 2019-10-05 06:00:00* Test Item Value Reference Range Interpretation Comments Urine Barbiturates Screen (test code = 580965259) NEGATIVE NEGA TIVE [facility] CenterUrine phencyclidine detection by screening gvtayj3209-39-87 06:00:00* Test Item Value Reference Range Interpretation Comments Urine Phencyclidine Screen (test code = 49450-8) NEGATIVE NEGAT [place] [facility] CenterUrine amphetamines detection by screen method > 1000 ng/uC7168-51-76 06:00:00* Test Item Value Reference Range Interpretation Comments Urine Amphetamines Screen (test code = 62894-4) NEGATIVE NEGATI VE [facility] CenterFluoroscopic procedure less than one hour tkzlwqqr6423-42-44 06:00:00* Test Item Value Reference Range Interpretation Comments Urine Methamphetamines Screen (test code = Urine Metha mphetamines Screen) NEGATIVE NEGATIVE [facility] CenterUrine benzodiazepines detection by screening [id number] 06:00:00* Test Item Value Reference Range Interpretation Comments Urine Benzodiazepines Screen (test code = 05875-8) NEGATIVE NEG ATIVE [facility] CenterUrine cocaine measurement (mass/volume) 2019-10-05 06:00:00* Test Item Value Reference Range Interpretation Comments Urine Cocaine Screen (test code = 3398-5) NEGATIVE NEGATIVE [facility] CenterUrine cannabinoids detection by screening [id number] 06:00:00* Test Item Value Reference Range Interpretation Comments Urine Cannabinoids Screen (test code = 55412-0) POSITIVE NEGATI VE This test provides only a screen. Positive results should be repeated by a confi rmatory test.[facility] CenterUrine methadone screen 2019-10-05 06:00:00* Test Item Value Reference Range Interpretation Comments Urine Methadone Screen (test code = 12009-9) NEGATIVE NEGATIVE THESE RESULTS ARE FOR MEDICAL TREATMENT ONLYTHIS REPORT CONTAINS UNCONFIR MED SCREENING RESULTS*POSITIVE RESULTS WILL BE CONFIRMED BY REFERENCE LAB UPON R EQUEST CUT-OFFDRUG CLASS CONCENTRATION ng/mLAmphetamines 1000Methamphetamines 1000Cocaine Metabolite 300Opiate 300Phencyc lidine 25Cannabinoid 50Barbiturates 300Benzodiazepine 300Methadone 300[facility] urobilinogen [facility] by test strip (mass/volume)2019-10-05 06:00:00* Test Item Value Reference Range Interpretation Comments Urine Urobilinogen (test code = 59434-6) 0.2 0.2-1 [facility] CenterUrine total bilirubin measurement (mass/volume)2019-10-05 06:00:00* Test Item Value Reference Range Interpretation Comments Urine Bilirubin (test code = 1978-6) NEGATIVE NEGATIVE [facility] CenterUrine erythrocytes egxcorvot1858-02-07 06:00:00* Test Item Value Reference Range Interpretation Comments Urine Blood (test code = 93956-2) TRACE NEGATIVE [facility] CenterAutomated urine sediment leukocyte count by microscopy (number/high power field)2019-10-05 06:00:00* Test Item Value Reference Range Interpretation Comments Urine WBC (test code = 5821-4) 0-5 0-5 [facility] CenterErythrocytes detection in urine sediment by light [id number] 06:00:00* Test Item Value Reference Range Interpretation Comments Urine RBC (test code = 39973-1) 0-5 0-5 [facility] CenterBacteria detection in urine sediment by light lzxefmcncf6109-10-93 06:00:00* Test Item Value Reference Range Interpretation Comments Urine Bacteria (test code = 48545-9) RARE NONE [facility] CenterEpithelial cells detection in urine sediment by light iyoktmxiii1076-80-91 06:00:00* Test Item Value Reference Range Interpretation Comments Urine Epithelial Cells (test code = 21973-7) RARE NONE [facility] CenterUrine color plbkyqwygjzgi4550-34-28 06:00:00* Test Item Value Reference Range Interpretation Comments Urine Color (test code = 5778-6) YELLOW YELLOW [facility] CenterUrine qjjdsie2493-82-80 06:00:00* Test Item Value Reference Range Interpretation Comments Urine Clarity (test code = 26332-9) [facility]AR CLEAR [facility] by Test strip 2019-10-05 06:00:00* Test Item Value Reference Range Interpretation Comments Urine Specific Stevenson (test code = 5811-5) 1.020 1.010-1.02 5 [facility] CenterUrine pH measurement by automated test ggfti1225-32-74 06:00:00* Test Item Value Reference Range Interpretation Comments Urine pH (test code = 08961-9) 7.5 5-7 [facility] CenterUrine leukocyte esterase detection by thgxuuix7563-40-81 06:00:00* Test Item Value Reference Range Interpretation Comments Urine Leukocyte Esterase (test code = 5799-2) NEGATIVE NEGATIVE [facility] CenterUrine nitrite lgwvwklfm8561-98-63 06:00:00* Test Item Value Reference Range Interpretation Comments Urine Nitrite (test code = 11266-6) NEGATIVE NEGATIVE [facility] CenterUrine protein measurement by test strip (mass/volume)2019-10-05 06:00:00* Test Item Value Reference Range Interpretation Comments Urine Protein (test code = 5804-0) NEGATIVE NEGATIVE [facility] CenterUrine glucose joapdmqpq6639-47-98 06:00:00* Test Item Value Reference Range Interpretation Comments Urine Glucose (UA) (test code = 2349-9) 2+ NEGATIVE [facility] CenterUrine ketones detection by automated test [id number] 06:00:00* Test Item Value Reference Range Interpretation Comments Urine Ketones (test code = 82525-3) TRACE NEGATIVE [facility] CenterUrine opiates screening plsl4549-77-04 06:00:00* Test Item Value Reference Range Interpretation Comments Urine Opiates Screen (test code = 83152-8) POSITIVE NEGATIVE This test provides only a screen. Positive results should be repeated by a confi rmatory test.[facility] CenterBarbiturates screen, urine 2019-10-05 06:00:00* Test Item Value Reference Range Interpretation Comments Urine Barbiturates Screen (test code = 971434960) NEGATIVE NEGA TIVE [facility] CenterUrine phencyclidine detection by screening nyntvn1450-76-26 06:00:00* Test Item Value Reference Range Interpretation Comments Urine Phencyclidine Screen (test code = 85874-1) NEGATIVE NEGAT [place] [facility] CenterUrine amphetamines detection by screen method > 1000 ng/kI5658-83-19 06:00:00* Test Item Value Reference Range Interpretation Comments Urine Amphetamines Screen (test code = 28005-3) NEGATIVE NEGATI VE [facility] CenterFluoroscopic procedure less than one hour zmjssxcd7337-96-18 06:00:00* Test Item Value Reference Range Interpretation Comments Urine Methamphetamines Screen (test code = Urine Metha mphetamines Screen) NEGATIVE NEGATIVE [facility] CenterUrine benzodiazepines detection by screening rgpptb3259-05-82 06:00:00* Test Item Value Reference Range Interpretation Comments Urine Benzodiazepines Screen (test code = 70612-1) NEGATIVE NEG ATIVE [facility] CenterUrine cocaine measurement (mass/volume) 2019-10-05 06:00:00* Test Item Value Reference Range Interpretation Comments Urine Cocaine Screen (test code = 3398-5) NEGATIVE NEGATIVE [facility] CenterUrine cannabinoids detection by screening ocnswx4364-26-35 06:00:00* Test Item Value Reference Range Interpretation Comments Urine Cannabinoids Screen (test code = 66665-5) POSITIVE NEGATI VE This test provides only a screen. Positive results should be repeated by a confi rmatory test.[facility] CenterUrine methadone screen 2019-10-05 06:00:00* Test Item Value Reference Range Interpretation Comments Urine Methadone Screen (test code = 18284-7) NEGATIVE NEGATIVE THESE RESULTS ARE FOR MEDICAL TREATMENT ONLYTHIS REPORT CONTAINS UNCONFIR MED SCREENING RESULTS*POSITIVE RESULTS WILL BE CONFIRMED BY REFERENCE LAB UPON R EQUEST CUT-OFFDRUG CLASS CONCENTRATION ng/mLAmphetamines 1000Methamphetamines 1000Cocaine Metabolite 300Opiate 300Phencyc lidine 25Cannabinoid 50Barbiturates 300Benzodiazepine 300Methadone 300[facility] CenterUrine urobilinogen measurement by test strip (mass/volume)2019-10-05 06:00:00* Test Item Value Reference Range Interpretation Comments Urine Urobilinogen (test code = 80781-8) 0.2 0.2-1 [facility] CenterUrine total bilirubin measurement (mass/volume)2019-10-05 06:00:00* Test Item Value Reference Range Interpretation Comments Urine Bilirubin (test code = 1978-6) NEGATIVE NEGATIVE [facility] CenterUrine erythrocytes [id number] 06:00:00* Test Item Value Reference Range Interpretation Comments Urine Blood (test code = 19444-4) TRACE NEGATIVE [facility] CenterAutomated urine sediment leukocyte count by microscopy (number/high power field)2019-10-05 06:00:00* Test Item Value Reference Range Interpretation Comments Urine WBC (test code = 5821-4) 0-5 0-5 [facility] CenterErythrocytes detection in urine sediment by light dqyanzcdmg3569-49-40 06:00:00* Test Item Value Reference Range Interpretation Comments Urine RBC (test code = 69694-4) 0-5 0-5 [facility] CenterBacteria detection in urine sediment by light yqgirhasrw3799-58-90 06:00:00* Test Item Value Reference Range Interpretation Comments Urine Bacteria (test code = 63434-7) RARE NONE [facility] CenterEpithelial cells detection in urine sediment by light aywwryxczk4170-89-79 06:00:00* Test Item Value Reference Range Interpretation Comments Urine Epithelial Cells (test code = 55515-4) RARE NONE [facility] CenterUrine color xhoybmjijohjt0671-35-66 06:00:00* Test Item Value Reference Range Interpretation Comments Urine Color (test code = 5778-6) YELLOW YELLOW [facility] CenterUrine [id number] 06:00:00* Test Item Value Reference Range Interpretation Comments Urine Clarity (test code = 04179-7) [facility]AR [facility] Urine by Test strip 2019-10-05 06:00:00* Test Item Value Reference Range Interpretation Comments Urine Specific Stevenson (test code = 5811-5) 1.020 1.010-1.02 5 [facility] CenterUrine pH measurement by automated test [id number] 06:00:00* Test Item Value Reference Range Interpretation Comments Urine pH (test code = 59083-8) 7.5 5-7 [facility] CenterUrine leukocyte esterase detection by etnigmiu5008-54-51 06:00:00* Test Item Value Reference Range Interpretation Comments Urine Leukocyte Esterase (test code = 5799-2) NEGATIVE NEGATIVE [facility] CenterUrine nitrite [id number] 06:00:00* Test Item Value Reference Range Interpretation Comments Urine Nitrite (test code = 91676-0) NEGATIVE NEGATIVE [facility] CenterUrine protein measurement by test strip (mass/volume)2019-10-05 06:00:00* Test Item Value Reference Range Interpretation Comments Urine Protein (test code = 5804-0) NEGATIVE NEGATIVE [facility] CenterUrine glucose fdhgiaqjn7611-16-41 06:00:00* Test Item Value Reference Range Interpretation Comments Urine Glucose (UA) (test code = 2349-9) 2+ NEGATIVE [facility] CenterUrine ketones detection by automated test [id number] 06:00:00* Test Item Value Reference Range Interpretation Comments Urine Ketones (test code = 74454-4) TRACE NEGATIVE [facility] CenterUrine opiates screening [id number] 06:00:00* Test Item Value Reference Range Interpretation Comments Urine Opiates Screen (test code = 16765-0) POSITIVE NEGATIVE This test provides only a screen. Positive results should be repeated by a confi rmatory test.[facility] CenterBarbiturates screen, urine 2019-10-05 06:00:00* Test Item Value Reference Range Interpretation Comments Urine Barbiturates Screen (test code = 707779330) NEGATIVE NEGA TIVE [facility] CenterUrine phencyclidine detection by screening [id number] 06:00:00* Test Item Value Reference Range Interpretation Comments Urine Phencyclidine Screen (test code = 56077-4) NEGATIVE NEGAT [place] [facility] CenterUrine amphetamines detection by screen method > 1000 ng/wZ5240-71-49 06:00:00* Test Item Value Reference Range Interpretation Comments Urine Amphetamines Screen (test code = 84767-0) NEGATIVE NEGATI VE [facility] CenterFluoroscopic procedure less than one hour kqrlgbkw8378-07-64 06:00:00* Test Item Value Reference Range Interpretation Comments Urine Methamphetamines Screen (test code = Urine Metha mphetamines Screen) NEGATIVE NEGATIVE [facility] CenterUrine benzodiazepines detection by screening doklus6359-65-53 06:00:00* Test Item Value Reference Range Interpretation Comments Urine Benzodiazepines Screen (test code = 10790-1) NEGATIVE NEG ATIVE [facility] CenterUrine cocaine measurement (mass/volume) 2019-10-05 06:00:00* Test Item Value Reference Range Interpretation Comments Urine Cocaine Screen (test code = 3398-5) NEGATIVE NEGATIVE [facility] CenterUrine cannabinoids detection by screening dtxmzr4369-41-16 06:00:00* Test Item Value Reference Range Interpretation Comments Urine Cannabinoids Screen (test code = 34029-3) POSITIVE NEGATI VE This test provides only a screen. Positive results should be repeated by a confi rmatory test.[facility] CenterUrine methadone screen 2019-10-05 06:00:00* Test Item Value Reference Range Interpretation Comments Urine Methadone Screen (test code = 83972-9) NEGATIVE NEGATIVE THESE RESULTS ARE FOR MEDICAL TREATMENT ONLYTHIS REPORT CONTAINS UNCONFIR MED SCREENING RESULTS*POSITIVE RESULTS WILL BE CONFIRMED BY REFERENCE LAB UPON R EQUEST CUT-OFFDRUG CLASS CONCENTRATION ng/mLAmphetamines 1000Methamphetamines 1000Cocaine Metabolite 300Opiate 300Phencyc lidine 25Cannabinoid 50Barbiturates 300Benzodiazepine 300Methadone 300[facility] urobilinogen measurement by test strip (mass/volume)2019-10-05 06:00:00* Test Item Value Reference Range Interpretation Comments Urine Urobilinogen (test code = 79137-7) 0.2 0.2-1 [facility] CenterU[facility] total bilirubin measurement (mass/volume)2019-10-05 06:00:00* Test Item Value Reference Range Interpretation Comments Urine Bilirubin (test code = 1978-6) NEGATIVE NEGATIVE [facility] CenterUrine erythrocytes [id number] 06:00:00* Test Item Value Reference Range Interpretation Comments Urine Blood (test code = 91032-3) TRACE NEGATIVE [facility] CenterAutomated urine sediment leukocyte count by microscopy (number/high power field)2019-10-05 06:00:00* Test Item Value Reference Range Interpretation Comments Urine WBC (test code = 5821-4) 0-5 0-5 [facility] CenterErythrocytes detection in urine sediment by light [id number] 06:00:00* Test Item Value Reference Range Interpretation Comments Urine RBC (test code = 73295-5) 0-5 0-5 [facility] CenterBacteria detection in urine sediment by light lyxilddowm8066-16-63 06:00:00* Test Item Value Reference Range Interpretation Comments Urine Bacteria (test code = 52885-0) RARE NONE [facility] CenterEpithelial cells detection in urine sediment by light iewrfkuenj2223-74-28 06:00:00* Test Item Value Reference Range Interpretation Comments Urine Epithelial Cells (test code = 09473-2) RARE NONE [facility] CenterUrine color uahaclynwfxun9203-14-96 06:00:00* Test Item Value Reference Range Interpretation Comments Urine Color (test code = 5778-6) YELLOW YELLOW [facility] CenterUrine [id number] 06:00:00* Test Item Value Reference Range Interpretation Comments Urine Clarity (test code = 66780-2) [facility] by Test strip 2019-10-05 06:00:00* Test Item Value Reference Range Interpretation Comments Urine Specific Stevenson (test code = 5811-5) 1.020 1.010-1.02 5 [facility] CenterUrine pH measurement by automated test [id number] 06:00:00* Test Item Value Reference Range Interpretation Comments Urine pH (test code = 63322-7) 7.5 5-7 [facility] CenterUrine leukocyte esterase detection by gespjtdx9716-51-13 06:00:00* Test Item Value Reference Range Interpretation Comments Urine Leukocyte Esterase (test code = 5799-2) NEGATIVE NEGATIVE [facility] CenterUrine nitrite [id number] 06:00:00* Test Item Value Reference Range Interpretation Comments Urine Nitrite (test code = 15199-1) NEGATIVE NEGATIVE [facility] CenterUrine protein measurement by test strip (mass/volume)2019-10-05 06:00:00* Test Item Value Reference Range Interpretation Comments Urine Protein (test code = 5804-0) NEGATIVE NEGATIVE [facility] CenterUrine glucose [id number] 06:00:00* Test Item Value Reference Range Interpretation Comments Urine Glucose (UA) (test code = 2349-9) 2+ NEGATIVE [facility] CenterUrine ketones detection by automated test [id number] 06:00:00* Test Item Value Reference Range Interpretation Comments Urine Ketones (test code = 37749-3) TRACE NEGATIVE [facility] CenterUrine opiates screening [id number] 06:00:00* Test Item Value Reference Range Interpretation Comments Urine Opiates Screen (test code = 80681-5) POSITIVE NEGATIVE This test provides only a screen. Positive results should be repeated by a confi rmatory test.[facility] CenterBarbiturates screen, urine 2019-10-05 06:00:00* Test Item Value Reference Range Interpretation Comments Urine Barbiturates Screen (test code = 085590868) NEGATIVE NEGA TIVE [facility] CenterUrine phencyclidine detection by screening raxflk1072-99-95 06:00:00* Test Item Value Reference Range Interpretation Comments Urine Phencyclidine Screen (test code = 58977-0) NEGATIVE NEGAT [place] [facility] CenterUrine amphetamines detection by screen method > 1000 ng/[id number] 06:00:00* Test Item Value Reference Range Interpretation Comments Urine Amphetamines Screen (test code = 33962-4) NEGATIVE NEGATI VE [facility] CenterFluoroscopic procedure less than one hour iblyidnb0953-46-77 06:00:00* Test Item Value Reference Range Interpretation Comments Urine Methamphetamines Screen (test code = Urine Metha mphetamines Screen) NEGATIVE NEGATIVE [facility] CenterUrine benzodiazepines detection by screening smmawq6237-58-12 06:00:00* Test Item Value Reference Range Interpretation Comments Urine Benzodiazepines Screen (test code = 70006-7) NEGATIVE NEG ATIVE [facility] CenterUrine cocaine measurement (mass/volume) 2019-10-05 06:00:00* Test Item Value Reference Range Interpretation Comments Urine Cocaine Screen (test code = 3398-5) NEGATIVE NEGATIVE [facility] CenterUrine cannabinoids detection by screening [id number] 06:00:00* Test Item Value Reference Range Interpretation Comments Urine Cannabinoids Screen (test code = 44514-4) POSITIVE NEGATI VE This test provides only a screen. Positive results should be repeated by a confi rmatory test.[facility] CenterUrine methadone screen 2019-10-05 06:00:00* Test Item Value Reference Range Interpretation Comments Urine Methadone Screen (test code = 95236-7) NEGATIVE NEGATIVE THESE RESULTS ARE FOR MEDICAL TREATMENT ONLYTHIS REPORT CONTAINS UNCONFIR MED SCREENING RESULTS*POSITIVE RESULTS WILL BE CONFIRMED BY REFERENCE LAB UPON R EQUEST CUT-OFFDRUG CLASS CONCENTRATION ng/mLAmphetamines 1000Methamphetamines 1000Cocaine Metabolite 300Opiate 300Phencyc lidine 25Cannabinoid 50Barbiturates 300Benzodiazepine 300Methadone 300[facility] HospitalUrine urobilinogen measurement by test strip (mass/volume)2019-10-05 06:00:00* Test Item Value Reference Range Interpretation Comments Urine Urobilinogen (test code = 32366-9) 0.2 0.2-1 [facility] CenterUrine total bilirubin measurement (mass/volume)2019-10-05 06:00:00* Test Item Value Reference Range Interpretation Comments Urine Bilirubin (test code = 1978-6) NEGATIVE NEGATIVE [facility] CenterUrine erythrocytes [id number] 06:00:00* Test Item Value Reference Range Interpretation Comments Urine Blood (test code = 93013-3) TRACE NEGATIVE [facility] CenterAutomated urine sediment leukocyte count by microscopy (number/high power field)2019-10-05 06:00:00* Test Item Value Reference Range Interpretation Comments Urine WBC (test code = 5821-4) 0-5 0-5 [facility] CenterErythrocytes detection in urine sediment by light [id number] 06:00:00* Test Item Value Reference Range Interpretation Comments Urine RBC (test code = 87537-8) 0-5 0-5 [facility] CenterBacteria detection in urine sediment by light sluyugzqsw8437-69-67 06:00:00* Test Item Value Reference Range Interpretation Comments Urine Bacteria (test code = 43037-1) RARE NONE [facility] CenterEpithelial cells detection in urine sediment by light lborskkily0524-48-05 06:00:00* Test Item Value Reference Range Interpretation Comments Urine Epithelial Cells (test code = 66051-1) RARE NONE [facility] CenterUrine color aohgrqdupnfmq0079-37-34 06:00:00* Test Item Value Reference Range Interpretation Comments Urine Color (test code = 5778-6) YELLOW YELLOW [facility] CenterUrine eehfryf2167-09-79 06:00:00* Test Item Value Reference Range Interpretation Comments Urine Clarity (test code = 64810-6) CLEAR CLEAR [facility]pecific [facility] Urine by Test strip 2019-10-05 06:00:00* Test Item Value Reference Range Interpretation Comments Urine Specific Stevenson (test code = 5811-5) 1.020 1.010-1.02 5 [facility] CenterUrine pH measurement by automated test [id number] 06:00:00* Test Item Value Reference Range Interpretation Comments Urine pH (test code = 37606-8) 7.5 5-7 [facility] CenterUrine leukocyte esterase detection by ssfgudbu0471-86-36 06:00:00* Test Item Value Reference Range Interpretation Comments Urine Leukocyte Esterase (test code = 5799-2) NEGATIVE NEGATIVE [facility] CenterUrine nitrite [id number] 06:00:00* Test Item Value Reference Range Interpretation Comments Urine Nitrite (test code = 87608-6) NEGATIVE NEGATIVE [facility] CenterUrine protein measurement by test strip (mass/volume)2019-10-05 06:00:00* Test Item Value Reference Range Interpretation Comments Urine Protein (test code = 5804-0) NEGATIVE NEGATIVE [facility] CenterUrine glucose emzjbgprt8009-27-76 06:00:00* Test Item Value Reference Range Interpretation Comments Urine Glucose (UA) (test code = 2349-9) 2+ NEGATIVE [facility] CenterUrine ketones detection by automated test [id number] 06:00:00* Test Item Value Reference Range Interpretation Comments Urine Ketones (test code = 58423-7) TRACE NEGATIVE [facility] CenterUrine opiates screening [id number] 06:00:00* Test Item Value Reference Range Interpretation Comments Urine Opiates Screen (test code = 94320-8) POSITIVE NEGATIVE This test provides only a screen. Positive results should be repeated by a confi rmatory test.[facility] CenterBarbiturates screen, urine 2019-10-05 06:00:00* Test Item Value Reference Range Interpretation Comments Urine Barbiturates Screen (test code = 796655687) NEGATIVE NEGA TIVE [facility] CenterUrine phencyclidine detection by screening [id number] 06:00:00* Test Item Value Reference Range Interpretation Comments Urine Phencyclidine Screen (test code = 46148-5) NEGATIVE NEGAT [place] [facility] CenterUrine amphetamines detection by screen method > 1000 ng/[id number] 06:00:00* Test Item Value Reference Range Interpretation Comments Urine Amphetamines Screen (test code = 00608-0) NEGATIVE NEGATI VE [facility] CenterFluoroscopic procedure less than one hour [id number] 06:00:00* Test Item Value Reference Range Interpretation Comments Urine Methamphetamines Screen (test code = Urine Metha mphetamines Screen) NEGATIVE NEGATIVE [facility] CenterUrine benzodiazepines detection by screening [id number] 06:00:00* Test Item Value Reference Range Interpretation Comments Urine Benzodiazepines Screen (test code = 49119-7) NEGATIVE NEG ATIVE [facility] CenterUrine cocaine measurement (mass/volume) 2019-10-05 06:00:00* Test Item Value Reference Range Interpretation Comments Urine Cocaine Screen (test code = 3398-5) NEGATIVE NEGATIVE [facility] CenterUrine cannabinoids detection by screening cnwhqs9401-38-97 06:00:00* Test Item Value Reference Range Interpretation Comments Urine Cannabinoids Screen (test code = 21909-8) POSITIVE NEGATI VE This test provides only a screen. Positive results should be repeated by a confi rmatory test.[facility] CenterUrine methadone screen 2019-10-05 06:00:00* Test Item Value Reference Range Interpretation Comments Urine Methadone Screen (test code = 18918-2) NEGATIVE NEGATIVE THESE RESULTS ARE FOR MEDICAL TREATMENT ONLYTHIS REPORT CONTAINS UNCONFIR MED SCREENING RESULTS*POSITIVE RESULTS WILL BE CONFIRMED BY REFERENCE LAB UPON R EQUEST CUT-OFFDRUG CLASS CONCENTRATION ng/mLAmphetamines 1000Methamphetamines 1000Cocaine Metabolite 300Opiate 300Phencyc lidine 25Cannabinoid 50Barbiturates 300Benzodiazepine 300Methadone 300[facility] CenterUrine urobilinogen measurement by test strip (mass/volume)2019-10-05 06:00:00* Test Item Value Reference Range Interpretation Comments Urine Urobilinogen (test code = 01863-4) 0.2 0.2-1 [facility] CenterUrine total bilirubin measurement (mass/volume)2019-10-05 06:00:00* Test Item Value Reference Range Interpretation Comments Urine Bilirubin (test code = 1978-6) NEGATIVE NEGATIVE [facility] CenterUrine erythrocytes genmxcjpl3595-70-17 06:00:00* Test Item Value Reference Range Interpretation Comments Urine Blood (test code = 98625-0) TRACE NEGATIVE [facility] CenterAutomated urine sediment leukocyte count by microscopy (number/high power field)2019-10-05 06:00:00* Test Item Value Reference Range Interpretation Comments Urine WBC (test code = 5821-4) 0-5 0-5 [facility] CenterErythrocytes detection in urine sediment by light [id number] 06:00:00* Test Item Value Reference Range Interpretation Comments Urine RBC (test code = 26519-0) 0-5 0-5 [facility] CenterBacteria detection in urine sediment by light ctgeokfydu0676-03-67 06:00:00* Test Item Value Reference Range Interpretation Comments Urine Bacteria (test code = 22311-9) RARE NONE [facility] CenterEpithelial cells detection in urine sediment by light jfmaauehzd1729-54-68 06:00:00* Test Item Value Reference Range Interpretation Comments Urine Epithelial Cells (test code = 06285-6) RARE NONE [facility] CenterUrine color rdvkkgifbnnwi4791-08-92 06:00:00* Test Item Value Reference Range Interpretation Comments Urine Color (test code = 5778-6) YELLOW YELLOW [facility] CenterUrine irdmccl4539-60-09 06:00:00* Test Item Value Reference Range Interpretation Comments Urine Clarity (test code = 90720-4) [facility]AR CLEAR [facility]pecific [facility] Urine by Test strip 2019-10-05 06:00:00* Test Item Value Reference Range Interpretation Comments Urine Specific Stevenson (test code = 5811-5) 1.020 1.010-1.02 5 [facility] CenterUrine pH measurement by automated test [id number] 06:00:00* Test Item Value Reference Range Interpretation Comments Urine pH (test code = 87622-0) 7.5 5-7 [facility] CenterUrine leukocyte esterase detection by dvpjmrbt9168-31-36 06:00:00* Test Item Value Reference Range Interpretation Comments Urine Leukocyte Esterase (test code = 5799-2) NEGATIVE NEGATIVE [facility] CenterUrine nitrite [id number] 06:00:00* Test Item Value Reference Range Interpretation Comments Urine Nitrite (test code = 56395-3) NEGATIVE NEGATIVE [facility] CenterUrine protein measurement by test strip (mass/volume)2019-10-05 06:00:00* Test Item Value Reference Range Interpretation Comments Urine Protein (test code = 5804-0) NEGATIVE NEGATIVE [facility] CenterUrine glucose rtsziqizm6443-83-04 06:00:00* Test Item Value Reference Range Interpretation Comments Urine Glucose (UA) (test code = 2349-9) 2+ NEGATIVE [facility] CenterUrine ketones detection by automated test [id number] 06:00:00* Test Item Value Reference Range Interpretation Comments Urine Ketones (test code = 79001-6) TRACE NEGATIVE [facility] CenterUrine opiates screening [id number] 06:00:00* Test Item Value Reference Range Interpretation Comments Urine Opiates Screen (test code = 51628-8) POSITIVE NEGATIVE This test provides only a screen. Positive results should be repeated by a confi rmatory test.[facility] CenterBarbiturates screen, urine 2019-10-05 06:00:00* Test Item Value Reference Range Interpretation Comments Urine Barbiturates Screen (test code = 598067444) NEGATIVE NEGA TIVE [facility] CenterUrine phencyclidine detection by screening [id number] 06:00:00* Test Item Value Reference Range Interpretation Comments Urine Phencyclidine Screen (test code = 11757-4) NEGATIVE NEGAT [place] [facility] CenterUrine amphetamines detection by screen method > 1000 ng/[id number] 06:00:00* Test Item Value Reference Range Interpretation Comments Urine Amphetamines Screen (test code = 51339-0) NEGATIVE NEGATI VE [facility] CenterFluoroscopic procedure less than one hour [id number] 06:00:00* Test Item Value Reference Range Interpretation Comments Urine Methamphetamines Screen (test code = Urine Metha mphetamines Screen) NEGATIVE NEGATIVE [facility] CenterUrine benzodiazepines detection by screening dnpncp5083-08-33 06:00:00* Test Item Value Reference Range Interpretation Comments Urine Benzodiazepines Screen (test code = 16623-3) NEGATIVE NEG ATIVE [facility] CenterUrine cocaine measurement (mass/volume) 2019-10-05 06:00:00* Test Item Value Reference Range Interpretation Comments Urine Cocaine Screen (test code = 3398-5) NEGATIVE NEGATIVE [facility] CenterUrine cannabinoids detection by screening [id number] 06:00:00* Test Item Value Reference Range Interpretation Comments Urine Cannabinoids Screen (test code = 68976-5) POSITIVE NEGATI VE This test provides only a screen. Positive results should be repeated by a confi rmatory test.[facility] CenterUrine methadone screen 2019-10-05 06:00:00* Test Item Value Reference Range Interpretation Comments Urine Methadone Screen (test code = 79458-0) NEGATIVE NEGATIVE THESE RESULTS ARE FOR MEDICAL TREATMENT ONLYTHIS REPORT CONTAINS UNCONFIR MED SCREENING RESULTS*POSITIVE RESULTS WILL BE CONFIRMED BY REFERENCE LAB UPON R EQUEST CUT-OFFDRUG CLASS CONCENTRATION ng/mLAmphetamines 1000Methamphetamines 1000Cocaine Metabolite 300Opiate 300Phencyc lidine 25Cannabinoid 50Barbiturates 300Benzodiazepine 300Methadone 300[facility] HospitalU[facility] urobilinogen measurement by test strip (mass/volume)2019-10-05 06:00:00* Test Item Value Reference Range Interpretation Comments Urine Urobilinogen (test code = 12744-3) 0.2 0.2-1 [facility] CenterUrine total bilirubin measurement (mass/volume)2019-10-05 06:00:00* Test Item Value Reference Range Interpretation Comments Urine Bilirubin (test code = 1978-6) NEGATIVE NEGATIVE [facility] CenterUrine erythrocytes ojsuyosgg5964-32-25 06:00:00* Test Item Value Reference Range Interpretation Comments Urine Blood (test code = 81266-2) TRACE NEGATIVE [facility] CenterAutomated urine sediment leukocyte count by microscopy (number/high power field)2019-10-05 06:00:00* Test Item Value Reference Range Interpretation Comments Urine WBC (test code = 5821-4) 0-5 0-5 [facility] CenterErythrocytes detection in urine sediment by light hsobuhvtgk3032-75-31 06:00:00* Test Item Value Reference Range Interpretation Comments Urine RBC (test code = 29113-1) 0-5 0-5 [facility] CenterBacteria detection in urine sediment by light eywahajqzf6911-76-79 06:00:00* Test Item Value Reference Range Interpretation Comments Urine Bacteria (test code = 44031-3) RARE NONE [facility] CenterEpithelial cells detection in urine sediment by light wnvuknlvlc6384-98-38 06:00:00* Test Item Value Reference Range Interpretation Comments Urine Epithelial Cells (test code = 10146-5) RARE NONE [facility] CenterProthrombin time (PT) in platelet poor plasma by coagulation [id number] 05:08:00* Test Item Value Reference Range Interpretation Comments Prothrombin Time (test code = 5902-2) 13.4 11.9-14.5 [facility] CenterINR in Platelet poor plasma by Coagulation dzzvy3097-06-28 05:08:00* Test Item Value Reference Range Interpretation Comments Prothromb Time International Ratio (test code = 6301-6) 0.96 Oral Anticoagulant Therapy INR Values:1. Low Intensity Therapy 1.5 - 2.02 . Moderate Intensity Therapy 2.0 - 3.03. High Intensity Therapy(1) 2.5 - 3. 54. High Intensity Therapy(2) 3.0 - 4.05. Panic Value INR > 5.0 [facility] CenterProthrombin time (PT) in platelet poor plasma by coagulation [id number] 05:08:00* Test Item Value Reference Range Interpretation Comments Prothrombin Time (test code = 5902-2) 13.4 11.9-14.5 [facility] CenterINR in Platelet poor plasma by Coagulation [id number] 05:08:00* Test Item Value Reference Range Interpretation Comments Prothromb Time International Ratio (test code = 6301-6) 0.96 Oral Anticoagulant Therapy INR Values:1. Low Intensity Therapy 1.5 - 2.02 . Moderate Intensity Therapy 2.0 - 3.03. High Intensity Therapy(1) 2.5 - 3. 54. High Intensity Therapy(2) 3.0 - 4.05. Panic Value INR > 5.0 [facility] CenterProthrombin time (PT) in platelet poor plasma by coagulation [id number] 05:08:00* Test Item Value Reference Range Interpretation Comments Prothrombin Time (test code = 5902-2) 13.4 11.9-14.5 [facility] CenterINR in Platelet poor plasma by Coagulation rylwm5324-15-35 05:08:00* Test Item Value Reference Range Interpretation Comments Prothromb Time International Ratio (test code = 6301-6) 0.96 Oral Anticoagulant Therapy INR Values:1. Low Intensity Therapy 1.5 - 2.02 . Moderate Intensity Therapy 2.0 - 3.03. High Intensity Therapy(1) 2.5 - 3. 54. High Intensity Therapy(2) 3.0 - 4.05. Panic Value INR > 5.0 [facility] CenterProthrombin time (PT) in platelet poor plasma by coagulation [id number] 05:08:00* Test Item Value Reference Range Interpretation Comments Prothrombin Time (test code = 5902-2) 13.4 11.9-14.5 [facility] CenterINR in Platelet poor plasma by Coagulation [id number] 05:08:00* Test Item Value Reference Range Interpretation Comments Prothromb Time International Ratio (test code = 6301-6) 0.96 Oral Anticoagulant Therapy INR Values:1. Low Intensity Therapy 1.5 - 2.02 . Moderate Intensity Therapy 2.0 - 3.03. High Intensity Therapy(1) 2.5 - 3. 54. High Intensity Therapy(2) 3.0 - 4.05. Panic Value INR > 5.0 [facility] CenterProthrombin time (PT) in platelet poor plasma by coagulation [id number] 05:08:00* Test Item Value Reference Range Interpretation Comments Prothrombin Time (test code = 5902-2) 13.4 11.9-14.5 [facility] CenterINR in Platelet poor plasma by Coagulation fnrze2064-85-26 05:08:00* Test Item Value Reference Range Interpretation Comments Prothromb Time International Ratio (test code = 6301-6) 0.96 Oral Anticoagulant Therapy INR Values:1. Low Intensity Therapy 1.5 - 2.02 . Moderate Intensity Therapy 2.0 - 3.03. High Intensity Therapy(1) 2.5 - 3. 54. High Intensity Therapy(2) 3.0 - 4.05. Panic Value INR > 5.0 [facility] CenterProthrombin time (PT) in platelet poor plasma by coagulation kltes3543-90-47 05:08:00* Test Item Value Reference Range Interpretation Comments Prothrombin Time (test code = 5902-2) 13.4 11.9-14.5 [facility] CenterINR in Platelet poor plasma by Coagulation wgexr5588-05-69 05:08:00* Test Item Value Reference Range Interpretation Comments Prothromb Time International Ratio (test code = 6301-6) 0.96 Oral Anticoagulant Therapy INR Values:1. Low Intensity Therapy 1.5 - 2.02 . Moderate Intensity Therapy 2.0 - 3.03. High Intensity Therapy(1) 2.5 - 3. 54. High Intensity Therapy(2) 3.0 - 4.05. Panic Value INR > 5.0 [facility] CenterProthrombin time (PT) in platelet poor plasma by coagulation [id number] 05:08:00* Test Item Value Reference Range Interpretation Comments Prothrombin Time (test code = 5902-2) 13.4 11.9-14.5 [facility] CenterINR in Platelet poor plasma by Coagulation [id number] 05:08:00* Test Item Value Reference Range Interpretation Comments Prothromb Time International Ratio (test code = 6301-6) 0.96 Oral Anticoagulant Therapy INR Values:1. Low Intensity Therapy 1.5 - 2.02 . Moderate Intensity Therapy 2.0 - 3.03. High Intensity Therapy(1) 2.5 - 3. 54. High Intensity Therapy(2) 3.0 - 4.05. Panic Value INR > 5.0 [facility] CenterProthrombin time (PT) in platelet poor plasma by coagulation [id number] 05:08:00* Test Item Value Reference Range Interpretation Comments Prothrombin Time (test code = 5902-2) 13.4 11.9-14.5 [facility] CenterINR in Platelet poor plasma by Coagulation [id number] 05:08:00* Test Item Value Reference Range Interpretation Comments Prothromb Time International Ratio (test code = 6301-6) 0.96 Oral Anticoagulant Therapy INR Values:1. Low Intensity Therapy 1.5 - 2.02 . Moderate Intensity Therapy 2.0 - 3.03. High Intensity Therapy(1) 2.5 - 3. 54. High Intensity Therapy(2) 3.0 - 4.05. Panic Value INR > 5.0 [facility] CenterCT ABDOMEN/PELVIS [id number] 12:03:00 [facility] [address] [address] Patient Name: BREE LINDSAY MR #: [id number] : 1975 Age/Sex: 43/M Req #: [id number] Adm Physician: ISACC JAVED MD Ordered by: LU SADLER DO Report #: [id number] Location: MED/SURG Room/Bed: [facility] Procedure: [id number] CT/CT ABDOMEN/ PELVIS W Exam Date: 10/04/19 [...] (test code = 1975-2) 0.4 0.2-1.2 [facility] CenterFluoroscopic procedure less than one hour [id number] 06:25:00* Test Item Value Reference Range Interpretation Comments Aspartate Amino Transf (AST/SGOT) (test code = Aspartate Amino Transf (AST/SGOT)) 20 5-34 [facility] alanine aminotransferase measurement (enzymatic activity/volume)2019-10-04 06:25:00* Test Item Value Reference Range Interpretation Comments Alanine Aminotransferase (ALT/SGPT) (test code = 1742-6) 15 0-55 [facility] protein measurement (mass/volume)2019-10-04 06:25:00* Test Item Value Reference Range Interpretation Comments Total Protein (test code = 2885-2) 7.2 6.5-8.1 [facility] albumin measurement (mass/volume)2019-10-04 06:25:00* Test Item Value Reference Range Interpretation Comments Albumin (test code = 1751-7) 3.9 3.5-5.0 [facility] CenterPlasma globulin measurement (mass/volume) 2019-10-04 06:25:00* Test Item Value Reference Range Interpretation Comments Globulin (test code = 97268-4) 3.3 2.3-3.5 [facility] albumin/globulin mass [id number] 06:25:00* Test Item Value Reference Range Interpretation Comments Albumin/Globulin Ratio (test code = 1759-0) 1.2 0.8-2.0 [facility] alkaline phosphatase measurement (enzymatic activity/volume)2019-10-04 06:25:00* Test Item Value Reference Range Interpretation Comments Alkaline Phosphatase (test code = 6768-6) 90 40-150 [facility] total bilirubin measurement (mass/volume)2019-10-04 06:25:00* Test Item Value Reference Range Interpretation Comments Total Bilirubin (test code = 1975-2) 0.4 0.2-1.2 [facility] CenterFluoroscopic procedure less than one hour [id number] 06:25:00* Test Item Value Reference Range Interpretation Comments Aspartate Amino Transf (AST/SGOT) (test code = Aspartate Amino Transf (AST/SGOT)) 20 5-34 [facility] alanine aminotransferase measurement (enzymatic activity/volume)2019-10-04 06:25:00* Test Item Value Reference Range Interpretation Comments Alanine Aminotransferase (ALT/SGPT) (test code = 1742-6) 15 0-55 [facility] protein measurement (mass/volume)2019-10-04 06:25:00* Test Item Value Reference Range Interpretation Comments Total Protein (test code = 2885-2) 7.2 6.5-8.1 [facility] albumin measurement (mass/volume)2019-10-04 06:25:00* Test Item Value Reference Range Interpretation Comments Albumin (test code = 1751-7) 3.9 3.5-5.0 [facility] CenterPlasma globulin measurement (mass/volume) 2019-10-04 06:25:00* Test Item Value Reference Range Interpretation Comments Globulin (test code = 12762-4) 3.3 2.3-3.5 [facility] albumin/globulin mass [id number] 06:25:00* Test Item Value Reference Range Interpretation Comments Albumin/Globulin Ratio (test code = 1759-0) 1.2 0.8-2.0 [facility]er[facility] alkaline phosphatase measurement (enzymatic activity/volume)2019-10-04 06:25:00* Test Item Value Reference Range Interpretation Comments Alkaline Phosphatase (test code = 6768-6) 90 40-150 [facility] total bilirubin measurement (mass/volume)2019-10-04 06:25:00* Test Item Value Reference Range Interpretation Comments Total Bilirubin (test code = 1975-2) 0.4 0.2-1.2 [facility] CenterFluoroscopic procedure less than one hour [id number] 06:25:00* Test Item Value Reference Range Interpretation Comments Aspartate Amino Transf (AST/SGOT) (test code = Aspartate Amino Transf (AST/SGOT)) 20 5-34 [facility] alanine aminotransferase measurement (enzymatic activity/volume)2019-10-04 06:25:00* Test Item Value Reference Range Interpretation Comments Alanine Aminotransferase (ALT/SGPT) (test code = 1742-6) 15 0-55 [facility] protein measurement (mass/volume)2019-10-04 06:25:00* Test Item Value Reference Range Interpretation Comments Total Protein (test code = 2885-2) 7.2 6.5-8.1 [facility] albumin measurement (mass/volume)2019-10-04 06:25:00* Test Item Value Reference Range Interpretation Comments Albumin (test code = 1751-7) 3.9 3.5-5.0 [facility] CenterPlasma globulin measurement (mass/volume) 2019-10-04 06:25:00* Test Item Value Reference Range Interpretation Comments Globulin (test code = 64437-9) 3.3 2.3-3.5 [facility] albumin/globulin mass [id number] 06:25:00* Test Item Value Reference Range Interpretation Comments Albumin/Globulin Ratio (test code = 1759-0) 1.2 0.8-2.0 [facility] alkaline phosphatase measurement (enzymatic activity/volume)2019-10-04 06:25:00* Test Item Value Reference Range Interpretation Comments Alkaline Phosphatase (test code = 6768-6) 90 40-150 [facility] total bilirubin measurement (mass/volume)2019-10-04 06:25:00* Test Item Value Reference Range Interpretation Comments Total Bilirubin (test code = 1975-2) 0.4 0.2-1.2 [facility] CenterFluoroscopic procedure less than one hour [id number] 06:25:00* Test Item Value Reference Range Interpretation Comments Aspartate Amino Transf (AST/SGOT) (test code = Aspartate Amino Transf (AST/SGOT)) 20 5-34 [facility] alanine aminotransferase measurement (enzymatic activity/volume)2019-10-04 06:25:00* Test Item Value Reference Range Interpretation Comments Alanine Aminotransferase (ALT/SGPT) (test code = 1742-6) 15 0-55 [facility] protein measurement (mass/volume)2019-10-04 06:25:00* Test Item Value Reference Range Interpretation Comments Total Protein (test code = 2885-2) 7.2 6.5-8.1 [facility] albumin measurement (mass/volume)2019-10-04 06:25:00* Test Item Value Reference Range Interpretation Comments Albumin (test code = 1751-7) 3.9 3.5-5.0 [facility] CenterPlasma globulin measurement (mass/volume) 2019-10-04 06:25:00* Test Item Value Reference Range Interpretation Comments Globulin (test code = 65850-0) 3.3 2.3-3.5 [facility] albumin/globulin mass [id number] 06:25:00* Test Item Value Reference Range Interpretation Comments Albumin/Globulin Ratio (test code = 1759-0) 1.2 0.8-2.0 [facility] alkaline phosphatase measurement (enzymatic activity/volume)2019-10-04 06:25:00* Test Item Value Reference Range Interpretation Comments Alkaline Phosphatase (test code = 6768-6) 90 40-150 [facility] total bilirubin measurement (mass/volume)2019-10-04 06:25:00* Test Item Value Reference Range Interpretation Comments Total Bilirubin (test code = 1975-2) 0.4 0.2-1.2 [facility] CenterFluoroscopic procedure less than one hour ecksqbrt3141-09-66 06:25:00* Test Item Value Reference Range Interpretation Comments Aspartate Amino Transf (AST/SGOT) (test code = Aspartate Amino Transf (AST/SGOT)) 20 5-34 [facility] alanine aminotransferase measurement (enzymatic activity/volume)2019-10-04 06:25:00* Test Item Value Reference Range Interpretation Comments Alanine Aminotransferase (ALT/SGPT) (test code = 1742-6) 15 0-55 [facility] protein measurement (mass/volume)2019-10-04 06:25:00* Test Item Value Reference Range Interpretation Comments Total Protein (test code = 2885-2) 7.2 6.5-8.1 [facility] albumin measurement (mass/volume)2019-10-04 06:25:00* Test Item Value Reference Range Interpretation Comments Albumin (test code = 1751-7) 3.9 3.5-5.0 [facility] CenterPlasma globulin measurement (mass/volume) 2019-10-04 06:25:00* Test Item Value Reference Range Interpretation Comments Globulin (test code = 00909-8) 3.3 2.3-3.5 [facility] albumin/globulin mass [id number] 06:25:00* Test Item Value Reference Range Interpretation Comments Albumin/Globulin Ratio (test code = 1759-0) 1.2 0.8-2.0 [facility] alkaline phosphatase measurement (enzymatic activity/volume)2019-10-04 06:25:00* Test Item Value Reference Range Interpretation Comments Alkaline Phosphatase (test code = 6768-6) 90 40-150 [facility] total bilirubin measurement (mass/volume)2019-10-04 06:25:00* Test Item Value Reference Range Interpretation Comments Total Bilirubin (test code = 1975-2) 0.4 0.2-1.2 [facility] CenterFluoroscopic procedure less than one hour tdbgzlit5067-83-28 06:25:00* Test Item Value Reference Range Interpretation Comments Aspartate Amino Transf (AST/SGOT) (test code = Aspartate Amino Transf (AST/SGOT)) 20 5-34 [facility]er[facility] alanine aminotransferase measurement (enzymatic activity/volume)2019-10-04 06:25:00* Test Item Value Reference Range Interpretation Comments Alanine Aminotransferase (ALT/SGPT) (test code = 1742-6) 15 0-55 [facility]er[facility] protein measurement (mass/volume)2019-10-04 06:25:00* Test Item Value Reference Range Interpretation Comments Total Protein (test code = 2885-2) 7.2 6.5-8.1 [facility] albumin measurement (mass/volume)2019-10-04 06:25:00* Test Item Value Reference Range Interpretation Comments Albumin (test code = 1751-7) 3.9 3.5-5.0 [facility] CenterPlasma globulin measurement (mass/volume) 2019-10-04 06:25:00* Test Item Value Reference Range Interpretation Comments Globulin (test code = 17095-7) 3.3 2.3-3.5 [facility] albumin/globulin mass gjxss9915-26-93 06:25:00* Test Item Value Reference Range Interpretation Comments Albumin/Globulin Ratio (test code = 1759-0) 1.2 0.8-2.0 [facility] alkaline phosphatase measurement (enzymatic activity/volume)2019-10-04 06:25:00* Test Item Value Reference Range Interpretation Comments Alkaline Phosphatase (test code = 6768-6) 90 40-150 [facility] total bilirubin measurement (mass/volume)2019-10-04 06:25:00* Test Item Value Reference Range Interpretation Comments Total Bilirubin (test code = 1975-2) 0.4 0.2-1.2 [facility] CenterFluoroscopic procedure less than one hour mpbninfq6661-31-28 06:25:00* Test Item Value Reference Range Interpretation Comments Aspartate Amino Transf (AST/SGOT) (test code = Aspartate Amino Transf (AST/SGOT)) [facility] alanine aminotransferase measurement (enzymatic activity/volume)2019-10-04 06:25:00* Test Item Value Reference Range Interpretation Comments Alanine Aminotransferase (ALT/SGPT) (test code = 1742-6) 15 0-55 [facility]er[facility] protein measurement (mass/volume)2019-10-04 06:25:00* Test Item Value Reference Range Interpretation Comments Total Protein (test code = 2885-2) 7.2 6.5-8.1 [facility] albumin measurement (mass/volume)2019-10-04 06:25:00* Test Item Value Reference Range Interpretation Comments Albumin (test code = 1751-7) 3.9 3.5-5.0 [facility] CenterPlasma globulin measurement (mass/volume) 2019-10-04 06:25:00* Test Item Value Reference Range Interpretation Comments Globulin (test code = 77501-7) 3.3 2.3-3.5 [facility] albumin/globulin mass [id number] 06:25:00* Test Item Value Reference Range Interpretation Comments Albumin/Globulin Ratio (test code = 1759-0) 1.2 0.8-2.0 [facility] alkaline phosphatase measurement (enzymatic activity/volume)2019-10-04 06:25:00* Test Item Value Reference Range Interpretation Comments Alkaline Phosphatase (test code = 6768-6) 90 40-150 [facility] total bilirubin measurement (mass/volume)2019-10-04 06:25:00* Test Item Value Reference Range Interpretation Comments Total Bilirubin (test code = 1975-2) 0.4 0.2-1.2 [facility] CenterFluoroscopic procedure less than one hour dyxywdhc6731-26-46 06:25:00* Test Item Value Reference Range Interpretation Comments Aspartate Amino Transf (AST/SGOT) (test code = Aspartate Amino Transf (AST/SGOT)) [facility] alanine aminotransferase measurement (enzymatic activity/volume)2019-10-04 06:25:00* Test Item Value Reference Range Interpretation Comments Alanine Aminotransferase (ALT/SGPT) (test code = 1742-6) 15 0-55 [facility] protein measurement (mass/volume)2019-10-04 06:25:00* Test Item Value Reference Range Interpretation Comments Total Protein (test code = 2885-2) 7.2 6.5-8.1 [facility] albumin measurement (mass/volume)2019-10-04 06:25:00* Test Item Value Reference Range Interpretation Comments Albumin (test code = 1751-7) 3.9 3.5-5.0 [facility] CenterPlasma globulin measurement (mass/volume) 2019-10-04 06:25:00* Test Item Value Reference Range Interpretation Comments Globulin (test code = 99755-4) 3.3 2.3-3.5 [facility] albumin/globulin mass gwrmz5197-98-62 06:25:00* Test Item Value Reference Range Interpretation Comments Albumin/Globulin Ratio (test code = 1759-0) 1.2 0.8-2.0 [facility] alkaline phosphatase measurement (enzymatic activity/volume)2019-10-04 06:25:00* Test Item Value Reference Range Interpretation Comments Alkaline Phosphatase (test code = 6768-6) 90 40-150 [facility] CenterFluoroscopic procedure less than one hour npxiwmqt4675-30-72 01:50:00* Test Item Value Reference Range Interpretation Comments Coronavirus (PCR) (test code = Coronavirus (PCR)) NOT DETECTED NOTD ETECTED SARS-COV2/RT-PCRNegative results do not preclude SARS-CoV-2 infection and should not be used as the sole basis for patient management decisions. Negative results must be combined with clinical [...] use of in vitro diagnostic test for detection and or diagnosis of COVID-19 is terminated under section 564(b) of the Act, or the the EUA is revoked under 564(g) of the ACT.Testing performed by [address]Fluoroscopic procedure less than one hour duration 2019-10-04 01:50:00* Test Item Value Reference Range Interpretation Comments Coronavirus (PCR) (test code = Coronavirus (PCR)) NOT DETECTED NOTD ETECTED SARS-COV2/RT-PCRNegative results do not preclude SARS-CoV-2 infection and should not be used as the sole basis for patient management decisions. Negative results must be combined with clinical [...] use of in vitro diagnostic test for detection and or diagnosis of COVID-19 is terminated under section 564(b) of the Act, or the the EUA is revoked under 564(g) of the ACT.Testing performed [address]PELVIS [id number] 12:40:00 [facility] [address] [address] Patient Name: BREE LINDSAY MR #: [id number] : 1975 Age/Sex: 43/M Req #: [id number] Adm Physician: Ordered by: STACIE FALLON, JEANNIE FALLON Report #: [id number] Location: ER Room/Bed: Procedure: [id number] CT/CT ABD OMEN/PELVIS W Exam Date: 09/30/19 [...] (PT) in platelet poor plasma by coagulation [id number] 09:55:00* Test Item Value Reference Range Interpretation Comments Prothrombin Time (test code = 5902-2) 13.3 11.9-14.5 [facility] CenterINR in Platelet poor plasma by Coagulation mnzvn5404-88-82 09:55:00* Test Item Value Reference Range Interpretation Comments Prothromb Time International Ratio (test code = 6301-6) 0.96 Oral Anticoagulant Therapy INR Values:1. Low Intensity Therapy 1.5 - 2.02 . Moderate Intensity Therapy 2.0 - 3.03. High Intensity Therapy(1) 2.5 - 3. 54. High Intensity Therapy(2) 3.0 - 4.05. Panic Value INR > 5.0 [facility] CenterActivated partial thromboplastin time (aPTT) in platelet poor plasma by coagulation afzrs0587-82-36 09:55:00* Test Item Value Reference Range Interpretation Comments Activated Partial Thromboplast Time (test code = 81373-8) 26.1 23.8-35.5 [facility] sodium measurement (moles/volume)2019-09-30 09:55:00* Test Item Value Reference Range Interpretation Comments Sodium Level (test code = 2951-2) 142 136-145 [facility] potassium measurement (moles/volume)2019-09-30 09:55:00* Test Item Value Reference Range Interpretation Comments Potassium Level (test code = 2823-3) 3.9 3.5-5.1 [facility] chloride measurement (moles/volume)2019-09-30 09:55:00* Test Item Value Reference Range Interpretation Comments Chloride Level (test code = 2075-0) 103 98-107 [facility] plasma carbon dioxide, total measurement (moles/volume)2019-09-30 09:55:00* Test Item Value Reference Range Interpretation Comments Carbon Dioxide Level (test code = 2028-9) 30 22-29 [facility] plasma anion [id number] 09:55:00* Test Item Value Reference Range Interpretation Comments Anion Gap (test code = 92557-6) 12.9 8-16 [facility] urea nitrogen measurement (mass/volume)2019-09-30 09:55:00* Test Item Value Reference Range Interpretation Comments Blood Urea Nitrogen (test code = 3094-0) 13 7-26 [facility] plasma creatinine measurement (mass/volume)2019-09-30 09:55:00* Test Item Value Reference Range Interpretation Comments Creatinine (test code = 2160-0) 1.18 0.72-1.25 [facility] plasma urea nitrogen/creatinine mass [id number] 09:55:00* Test Item Value Reference Range Interpretation Comments BUN/Creatinine Ratio (test code = 3097-3) 11 6-25 [facility] CenterEstimated glomerular filtration rate (GFR) szmssgddvbdlg1056-25-77 09:55:00* Test Item Value Reference Range Interpretation Comments Estimat Glomerular Filtration Rate (test code = 804664935) > 60 >60 Ranges were taken from the National Kidney Disease Education Program and the [facility] literature.Reference ranges:60 or greater: Tvesbv00-40 ( for 3 consecutive months): Chronic kidney disease 15 or less: Kidney failureCHRISTUS [facility] – Medical CenterGlucose ghbvaskiohw1509-42-72 09:55:00* Test Item Value Reference Range Interpretation Comments Glucose Level (test code = FIX8766) 328 74-118 [facility] calcium measurement (mass/volume)2019-09-30 09:55:00* Test Item Value Reference Range Interpretation Comments Calcium Level (test code = 54926-7) 8.8 8.4-10.2 [facility] CenterFluoroscopic procedure less than one hour mnggnslt7805-27-54 09:55:00* Test Item Value Reference Range Interpretation Comments Lactic Acid Level (test code = Lactic Acid Level) 1.0 0.5- 2.0 [facility] or plasma total bilirubin measurement (mass/volume)2019-09-30 09:55:00* Test Item Value Reference Range Interpretation Comments Total Bilirubin (test code = 1975-2) 0.5 0.2-1.2 [facility] CenterFluoroscopic procedure less than one hour podnqvbb3710-90-52 09:55:00* Test Item Value Reference Range Interpretation Comments Aspartate Amino Transf (AST/SGOT) (test code = Aspartate Amino Transf (AST/SGOT)) 16 5-34 [facility] alanine aminotransferase measurement (enzymatic activity/volume)2019-09-30 09:55:00* Test Item Value Reference Range Interpretation Comments Alanine Aminotransferase (ALT/SGPT) (test code = 1742-6) 15 0-55 [facility]er[facility] or plasma protein measurement (mass/volume)2019-09-30 09:55:00* Test Item Value Reference Range Interpretation Comments Total Protein (test code = 2885-2) 6.4 6.5-8.1 [facility] albumin measurement (mass/volume)2019-09-30 09:55:00* Test Item Value Reference Range Interpretation Comments Albumin (test code = 1751-7) 3.4 3.5-5.0 [facility] CenterPlasma globulin measurement (mass/volume) 2019-09-30 09:55:00* Test Item Value Reference Range Interpretation Comments Globulin (test code = 39221-7) 3.0 2.3-3.5 [facility] albumin/globulin mass [id number] 09:55:00* Test Item Value Reference Range Interpretation Comments Albumin/Globulin Ratio (test code = 1759-0) 1.1 0.8-2.0 [facility] plasma alkaline phosphatase measurement (enzymatic activity/volume)2019-09-30 09:55:00* Test Item Value Reference Range Interpretation Comments Alkaline Phosphatase (test code = 6768-6) 92 40-150 [facility] or plasma creatine kinase measurement (enzymatic activity/volume)2019-09-30 09:55:00* Test Item Value Reference Range Interpretation Comments Creatine Kinase (test code = 2157-6) 365 30-200 [facility] or plasma creatine kinase MB measurement (mass/volume)2019-09-30 09:55:00* Test Item Value Reference Range Interpretation Comments Creatine Kinase MB (test code = 69295-4) 1.50 0-5.0 [facility] CenterTroponin I measurement by highly sensitive enzyme mbrwlmfqkbd3578-74-52 09:55:00* Test Item Value Reference Range Interpretation Comments Troponin I (test code = 93465-6) 0.001 0-0.300 [facility] plasma amylase measurement (enzymatic activity/volume)2019-09-30 09:55:00* Test Item Value Reference Range Interpretation Comments Amylase Level (test code = 1798-8) 49 25-125 [facility]er[facility] or plasma lipase measurement (enzymatic activity/volume)2019-09-30 09:55:00* Test Item Value Reference Range Interpretation Comments Lipase (test code = 3040-3) < 4 8-78 [facility] CenterActivated partial thromboplastin time (aPTT) in platelet poor plasma by coagulation lyvxv4708-25-97 09:55:00* Test Item Value Reference Range Interpretation Comments Activated Partial Thromboplast Time (test code = 91236-9) 26.1 23.8-35.5 [facility] CenterFluoroscopic procedure less than one hour [id number] 09:55:00* Test Item Value Reference Range Interpretation Comments Lactic Acid Level (test code = Lactic Acid Level) 1.0 0.5- 2.0 [facility] creatine kinase measurement (enzymatic activity/volume)2019-09-30 09:55:00* Test Item Value Reference Range Interpretation Comments Creatine Kinase (test code = 2157-6) 365 30-200 [facility] plasma creatine kinase MB measurement (mass/volume)2019-09-30 09:55:00* Test Item Value Reference Range Interpretation Comments Creatine Kinase MB (test code = 51246-8) 1.50 0-5.0 [facility] CenterTroponin I measurement by highly sensitive enzyme tmjryrdqugm8795-71-36 09:55:00* Test Item Value Reference Range Interpretation Comments Troponin I (test code = 50384-2) 0.001 0-0.300 [facility] plasma amylase measurement (enzymatic activity/volume)2019-09-30 09:55:00* Test Item Value Reference Range Interpretation Comments Amylase Level (test code = 1798-8) 49 25-125 [facility]er[facility] or plasma lipase measurement (enzymatic activity/volume)2019-09-30 09:55:00* Test Item Value Reference Range Interpretation Comments Lipase (test code = 3040-3) < 4 8-78 [facility] CenterActivated partial thromboplastin time (aPTT) in platelet poor plasma by coagulation wkrrf6995-86-93 09:55:00* Test Item Value Reference Range Interpretation Comments Activated Partial Thromboplast Time (test code = 20843-1) 26.1 23.8-35.5 [facility] CenterFluoroscopic procedure less than one hour rpfvpvjo8323-84-61 09:55:00* Test Item Value Reference Range Interpretation Comments Lactic Acid Level (test code = Lactic Acid Level) 1.0 0.5- 2.0 [facility] or plasma creatine kinase measurement (enzymatic activity/volume)2019-09-30 09:55:00* Test Item Value Reference Range Interpretation Comments Creatine Kinase (test code = 2157-6) 365 30-200 [facility] plasma creatine kinase MB measurement (mass/volume)2019-09-30 09:55:00* Test Item Value Reference Range Interpretation Comments Creatine Kinase MB (test code = 66978-2) 1.50 0-5.0 [facility] CenterTroponin I measurement by highly sensitive enzyme vqsypvzdfea5306-48-71 09:55:00* Test Item Value Reference Range Interpretation Comments Troponin I (test code = 56083-6) 0.001 0-0.300 [facility]er[facility] plasma amylase measurement (enzymatic activity/volume)2019-09-30 09:55:00* Test Item Value Reference Range Interpretation Comments Amylase Level (test code = 1798-8) 49 25-125 [facility] CenterActivated partial thromboplastin time (aPTT) in platelet poor plasma by coagulation lhqnt4788-35-50 09:55:00* Test Item Value Reference Range Interpretation Comments Activated Partial Thromboplast Time (test code = 67616-3) 26.1 23.8-35.5 [facility] CenterFluoroscopic procedure less than one hour acfczxyx8139-74-84 09:55:00* Test Item Value Reference Range Interpretation Comments Lactic Acid Level (test code = Lactic Acid Level) 1.0 0.5- 2.0 [facility]er[facility] or plasma creatine kinase measurement (enzymatic activity/volume)2019-09-30 09:55:00* Test Item Value Reference Range Interpretation Comments Creatine Kinase (test code = 2157-6) 365 30-200 [facility]er[facility] or plasma creatine kinase MB measurement (mass/volume)2019-09-30 09:55:00* Test Item Value Reference Range Interpretation Comments Creatine Kinase MB (test code = 03608-8) 1.50 0-5.0 [facility] CenterTroponin I measurement by highly sensitive enzyme gvaywhzodyu4536-24-09 09:55:00* Test Item Value Reference Range Interpretation Comments Troponin I (test code = 70367-0) 0.001 0-0.300 [facility]er[facility] or plasma amylase measurement (enzymatic activity/volume)2019-09-30 09:55:00* Test Item Value Reference Range Interpretation Comments Amylase Level (test code = 1798-8) 49 25-125 [facility] CenterActivated partial thromboplastin time (aPTT) in platelet poor plasma by coagulation bpuzq1313-95-53 09:55:00* Test Item Value Reference Range Interpretation Comments Activated Partial Thromboplast Time (test code = 33943-5) 26.1 23.8-35.5 [facility] CenterFluoroscopic procedure less than one hour ijvdhneu3857-81-80 09:55:00* Test Item Value Reference Range Interpretation Comments Lactic Acid Level (test code = Lactic Acid Level) 1.0 0.5- 2.0 [facility]er[facility] or plasma creatine kinase measurement (enzymatic activity/volume)2019-09-30 09:55:00* Test Item Value Reference Range Interpretation Comments Creatine Kinase (test code = 2157-6) 365 30-200 [facility]erum or plasma creatine kinase MB measurement (mass/volume)2019-09-30 09:55:00* Test Item Value Reference Range Interpretation Comments Creatine Kinase MB (test code = 17809-0) 1.50 0-5.0 [facility] CenterTroponin I measurement by highly sensitive enzyme ghrlpqeeqsp8031-91-74 09:55:00* Test Item Value Reference Range Interpretation Comments Troponin I (test code = 47339-1) 0.001 0-0.300 [facility]er[facility] or plasma amylase measurement (enzymatic activity/volume)2019-09-30 09:55:00* Test Item Value Reference Range Interpretation Comments Amylase Level (test code = 1798-8) 49 25-125 [facility] CenterActivated partial thromboplastin time (aPTT) in platelet poor plasma by coagulation gswji9066-04-67 09:55:00* Test Item Value Reference Range Interpretation Comments Activated Partial Thromboplast Time (test code = 60441-9) 26.1 23.8-35.5 [facility] CenterFluoroscopic procedure less than one hour eaxucjpk8991-64-94 09:55:00* Test Item Value Reference Range Interpretation Comments Lactic Acid Level (test code = Lactic Acid Level) 1.0 0.5- 2.0 [facility]er[facility] or plasma creatine kinase measurement (enzymatic activity/volume)2019-09-30 09:55:00* Test Item Value Reference Range Interpretation Comments Creatine Kinase (test code = 2157-6) 365 30-200 [facility]erum or plasma creatine kinase MB measurement (mass/volume)2019-09-30 09:55:00* Test Item Value Reference Range Interpretation Comments Creatine Kinase MB (test code = 37373-1) 1.50 0-5.0 [facility] CenterTroponin I measurement by highly sensitive enzyme rzoxcrxpjzo4762-75-22 09:55:00* Test Item Value Reference Range Interpretation Comments Troponin I (test code = 64649-2) 0.001 0-0.300 [facility]erum or plasma amylase measurement (enzymatic activity/volume)2019-09-30 09:55:00* Test Item Value Reference Range Interpretation Comments Amylase Level (test code = 1798-8) 49 25-125 [facility] CenterActivated partial thromboplastin time (aPTT) in platelet poor plasma by coagulation hxonb0215-85-24 09:55:00* Test Item Value Reference Range Interpretation Comments Activated Partial Thromboplast Time (test code = 12154-7) 26.1 23.8-35.5 [facility] CenterFluoroscopic procedure less than one hour katcozry4726-55-20 09:55:00* Test Item Value Reference Range Interpretation Comments Lactic Acid Level (test code = Lactic Acid Level) 1.0 0.5- 2.0 [facility]erum or plasma creatine kinase measurement (enzymatic activity/volume)2019-09-30 09:55:00* Test Item Value Reference Range Interpretation Comments Creatine Kinase (test code = 2157-6) 365 30-200 [facility]erum or plasma creatine kinase MB measurement (mass/volume)2019-09-30 09:55:00* Test Item Value Reference Range Interpretation Comments Creatine Kinase MB (test code = 66411-3) 1.50 0-5.0 [facility] CenterTroponin I measurement by highly sensitive enzyme gdkgmehdfox0947-18-43 09:55:00* Test Item Value Reference Range Interpretation Comments Troponin I (test code = 85067-5) 0.001 0-0.300 [facility]erum or plasma amylase measurement (enzymatic activity/volume)2019-09-30 09:55:00* Test Item Value Reference Range Interpretation Comments Amylase Level (test code = 1798-8) 49 25-125 [facility] CenterActivated partial thromboplastin time (aPTT) in platelet poor plasma by coagulation irvzg5144-37-77 09:55:00* Test Item Value Reference Range Interpretation Comments Activated Partial Thromboplast Time (test code = 12674-8) 26.1 23.8-35.5 [facility] CenterFluoroscopic procedure less than one hour tmsvvers6658-93-84 09:55:00* Test Item Value Reference Range Interpretation Comments Lactic Acid Level (test code = Lactic Acid Level) 1.0 0.5- 2.0 [facility]er[facility] or plasma creatine kinase measurement (enzymatic activity/volume)2019-09-30 09:55:00* Test Item Value Reference Range Interpretation Comments Creatine Kinase (test code = 2157-6) 365 30-200 [facility]erum or plasma creatine kinase MB measurement (mass/volume)2019-09-30 09:55:00* Test Item Value Reference Range Interpretation Comments Creatine Kinase MB (test code = 67225-7) 1.50 0-5.0 [facility] CenterTroponin I measurement by highly sensitive enzyme loyoiezdidm3031-76-64 09:55:00* Test Item Value Reference Range Interpretation Comments Troponin I (test code = 07297-5) 0.001 0-0.300 [facility]erum or plasma amylase measurement (enzymatic activity/volume)2019-09-30 09:55:00* Test Item Value Reference Range Interpretation Comments Amylase Level (test code = 1798-8) 49 25-125 [facility] CenterActivated partial thromboplastin time (aPTT) in platelet poor plasma by coagulation tvevt6641-13-98 09:55:00* Test Item Value Reference Range Interpretation Comments Activated Partial Thromboplast Time (test code = 06607-9) 26.1 23.8-35.5 [facility] CenterFluoroscopic procedure less than one hour dmawshif7191-64-73 09:55:00* Test Item Value Reference Range Interpretation Comments Lactic Acid Level (test code = Lactic Acid Level) 1.0 0.5- 2.0 [facility]erum or plasma creatine kinase measurement (enzymatic activity/volume)2019-09-30 09:55:00* Test Item Value Reference Range Interpretation Comments Creatine Kinase (test code = 2157-6) 365 30-200 [facility]erum or plasma creatine kinase MB measurement (mass/volume)2019-09-30 09:55:00* Test Item Value Reference Range Interpretation Comments Creatine Kinase MB (test code = 38996-1) 1.50 0-5.0 [facility] CenterTroponin I measurement by highly sensitive enzyme gojczkmkvhs8867-98-11 09:55:00* Test Item Value Reference Range Interpretation Comments Troponin I (test code = 46117-0) 0.001 0-0.300 [facility]erum or plasma amylase measurement (enzymatic activity/volume)2019-09-30 09:55:00* Test Item Value Reference Range Interpretation Comments Amylase Level (test code = 1798-8) 49 25-125 [facility] CenterCHEST SINGLE (PORTABLE)2019-09-30 09:23:00 [facility] [address] [address] Patient Name: BREE LINDSAY MR #: [id number] : 1975 Age/Sex: 43/M Req #: [id number] Adm Physician: Ordered by: STACIE FALLON, JEANNIE FALLON Report #: [id number] Location: ER Room/Bed: Procedure: [id number] DX/CHEST SINGLE (PORTABLE) Exam Date: 09/30/19 Exam Time: 083 5 REPORT STATUS: Signed EXAMINAT ION: CHEST SINGLE (PORTABLE) INDICATION: ERMD ORDER [id number] Y COMPARISON: Chest radiograph 07/23/2019, [...] MD on 09/30/19939 Transcribed By: PAULA on 09/30/1940 COPY TO: JEANNIE QUINONES Blood leukocytes automated count (number/volume)2019-09-30 09:10:00* Test Item Value Reference Range Interpretation Comments White Blood Count (test code = 6690-2) 9.64 4.8-10.8 [facility] CenterBlood erythrocytes automated count (number/volume)2019-09-30 09:10:00* Test Item Value Reference Range Interpretation Comments Red Blood Count (test code = 789-8) 3.70 4.3-5.7 [facility] CenterBlood hemoglobin measurement (moles/volume)2019-09-30 09:10:00* Test Item Value Reference Range Interpretation Comments Hemoglobin (test code = 52939-0) 10.4 14.0-18.0 [facility] CenterAutomated blood hematocrit (volume fraction)2019-09-30 09:10:00* Test Item Value Reference Range Interpretation Comments Hematocrit (test code = 4544-3) 32.9 38.2-49.6 [facility] CenterAutomated erythrocyte mean corpuscular sgfbfy9526-54-06 09:10:00* Test Item Value Reference Range Interpretation Comments Mean Corpuscular Volume (test code = 787-2) 88.9 81-99 [facility] CenterAutomated erythrocyte mean corpuscular hemoglobin (mass per erythrocyte)2019-09-30 09:10:00* Test Item Value Reference Range Interpretation Comments Mean Corpuscular Hemoglobin (test code = 785-6) 28.1 28-32 [facility] CenterAut[facility] eryth[facility] mean corpuscular hemoglobin concentration measurement (mass/volume)2019-09-30 09:10:00* Test Item Value Reference Range Interpretation Comments Mean Corpuscular Hemoglobin Concent (test code = 786-4) 31.6 31-35 [facility] CenterRD IalQa-Jem0178-47-03 09:10:00* Test Item Value Reference Range Interpretation Comments Red Cell Distribution Width (test code = 47697-3) 14.0 11.7 -14.4 [facility]ed [facility] platelet count (count/volume)2019-09-30 09:10:00* Test Item Value Reference Range Interpretation Comments Platelet Count (test code = 777-3) 263 140-360 [facility]ed blood segmented neutrophil count as percentage of total ilfmnypfeq4752-07-89 09:10:00* Test Item Value Reference Range Interpretation Comments Neutrophils (%) (Auto) (test code = 10778-3) 80.4 38.7-80.0 [facility] CenterAutunc health appalachianed blood lymphocyte count as percentage ot total qyyoiliybh3818-65-98 09:10:00* Test Item Value Reference Range Interpretation Comments Lymphocytes (%) (Auto) (test code = 736-9) 11.5 18.0-39.1 [facility] CenterAutomated blood monocyte count as percentage of total ntqbyqdcyo8282-63-04 09:10:00* Test Item Value Reference Range Interpretation Comments Monocytes (%) (Auto) (test code = 5905-5) 6.3 4.4-11.3 [facility] CenterAutomated blood eosinophil count as percentage of total vpqpvnbozu3722-83-52 09:10:00* Test Item Value Reference Range Interpretation Comments Eosinophils (%) (Auto) (test code = 713-8) 0.7 0.0-6.0 [facility] CenterAutomated blood basophil count as percentage of total bjnrtxznzh0454-33-96 09:10:00* Test Item Value Reference Range Interpretation Comments Basophils (%) (Auto) (test code = 706-2) 0.8 0.0-1.0 [facility] CenterFluoroscopic procedure less than one hour kknxeqre2297-37-23 09:10:00* Test Item Value Reference Range Interpretation Comments IM GRANULOCYTES % (test code = IM GRANULOCYTES %) 0.3 0.0- 1.0 [facility] CenterAutomated blood neutrophil count 2019-09-30 09:10:00* Test Item Value Reference Range Interpretation Comments Neutrophils # (Auto) (test code = 751-8) 7.7 2.1-6.9 [facility] CenterBlood lymphocytes count (number/volume) 2019-09-30 09:10:00* Test Item Value Reference Range Interpretation Comments Lymphocytes # (Auto) (test code = 32221-1) 1.1 1.0-3.2 [facility] CenterBlood monocytes automated count (number/volume)2019-09-30 09:10:00* Test Item Value Reference Range Interpretation Comments Monocytes # (Auto) (test code = 742-7) 0.6 0.2-0.8 [facility] CenterAutomated blood eosinophil count 2019-09-30 09:10:00* Test Item Value Reference Range Interpretation Comments Eosinophils # (Auto) (test code = 711-2) 0.1 0.0-0.4 [facility] CenterAutomated blood basophil count (count/volume)2019-09-30 09:10:00* Test Item Value Reference Range Interpretation Comments Basophils # (Auto) (test code = 704-7) 0.1 0.0-0.1 [facility] CenterFluoroscopic procedure less than one hour zjsqjrlp0991-08-15 09:10:00* Test Item Value Reference Range Interpretation Comments Absolute Immature Granulocyte (auto (zeenat t code = Absolute Immature Granulocyte (auto) 0.03 0-0.1 [facility] qotgglg9683-00-84 09:10:00* Test Item Value Reference Range Interpretation Comments Blood Culture (test code = 94855851) NO GROWTH AFTER 5 DAYS, FINAL REPORT [facility]2020-07-03 09:10:00* Test Item Value Reference Range Interpretation Comments Blood Culture (test code = 21690287) NO GROWTH AFTER 5 DAYS, FINAL REPORT [facility]2020-07-03 09:10:00* Test Item Value Reference Range Interpretation Comments Blood Culture (test code = 89845508) NO GROWTH AFTER 5 DAYS, FINAL REPORT [facility]2020-07-03 09:10:00* Test Item Value Reference Range Interpretation Comments Blood Culture (test code = 42865916) NO GROWTH AFTER 5 DAYS, FINAL REPORT [facility]2020-07-03 09:10:00* Test Item Value Reference Range Interpretation Comments Blood Culture (test code = 94185597) NO GROWTH AFTER 5 DAYS, FINAL REPORT [facility] xvzvhuj0540-03-30 09:10:00* Test Item Value Reference Range Interpretation Comments Blood Culture (test code = 76388940) NO GROWTH AFTER 5 DAYS, FINAL REPORT [facility]2020-07-03 09:10:00* Test Item Value Reference Range Interpretation Comments Blood Culture (test code = 38525532) NO GROWTH AFTER 5 DAYS, FINAL REPORT [facility]2020-07-03 09:10:00* Test Item Value Reference Range Interpretation Comments Blood Culture (test code = 64269809) NO GROWTH AFTER 5 DAYS, FINAL REPORT [facility] CenterUrine color tftlrrbsqudjb1567-38-99 08:44:00* Test Item Value Reference Range Interpretation Comments Urine Color (test code = 5778-6) YELLOW YELLOW [facility] CenterUrine ghvjauo9464-00-76 08:44:00* Test Item Value Reference Range Interpretation Comments Urine Clarity (test code = 37958-6) CLEAR CLEAR [facility]pecific gravity of Urine by Test strip 2019-09-30 08:44:00* Test Item Value Reference Range Interpretation Comments Urine Specific [place] (test code = 5811-5) 1.025 1.010-1.02 5 [facility] CenterUrine pH measurement by automated test bnrgy2134-56-63 08:44:00* Test Item Value Reference Range Interpretation Comments Urine pH (test code = 51488-8) 7 5-7 [facility] CenterUrine leukocyte esterase detection by krlvuczw6448-72-91 08:44:00* Test Item Value Reference Range Interpretation Comments Urine Leukocyte Esterase (test code = 5799-2) NEGATIVE NEGATIVE [facility] CenterUrine nitrite acfevufeb3390-73-97 08:44:00* Test Item Value Reference Range Interpretation Comments Urine Nitrite (test code = 41178-1) NEGATIVE NEGATIVE [facility] CenterUrine protein measurement by test strip (mass/volume)2019-09-30 08:44:00* Test Item Value Reference Range Interpretation Comments Urine Protein (test code = 5804-0) 1+ NEGATIVE [facility] CenterUrine glucose olpwwdmuj8363-47-63 08:44:00* Test Item Value Reference Range Interpretation Comments Urine Glucose (UA) (test code = 2349-9) 2+ NEGATIVE [facility] CenterUrine ketones detection by automated test qsltw8925-86-49 08:44:00* Test Item Value Reference Range Interpretation Comments Urine Ketones (test code = 51914-2) 2+ NEGATIVE [facility] CenterUrine opiates screening efni2433-40-09 08:44:00* Test Item Value Reference Range Interpretation Comments Urine Opiates Screen (test code = 37367-9) POSITIVE NEGATIVE This test provides only a screen. Positive results should be repeated by a confi rmatory test.[facility] CenterBarbiturates screen, urine 2019-09-30 08:44:00* Test Item Value Reference Range Interpretation Comments Urine Barbiturates Screen (test code = 525019997) NEGATIVE NEGA TIVE [facility] CenterUrine phencyclidine detection by screening suwyja8552-89-14 08:44:00* Test Item Value Reference Range Interpretation Comments Urine Phencyclidine Screen (test code = 92814-9) NEGATIVE NEGAT [place] [facility] CenterUrine amphetamines detection by screen method > 1000 ng/dR3061-49-56 08:44:00* Test Item Value Reference Range Interpretation Comments Urine Amphetamines Screen (test code = 36907-4) NEGATIVE NEGATI VE [facility] CenterFluoroscopic procedure less than one hour kcgvsaej8706-24-87 08:44:00* Test Item Value Reference Range Interpretation Comments Urine Methamphetamines Screen (test code = Urine Metha mphetamines Screen) NEGATIVE NEGATIVE [facility] CenterUrine benzodiazepines detection by screening mcykuq6899-76-28 08:44:00* Test Item Value Reference Range Interpretation Comments Urine Benzodiazepines Screen (test code = 73153-9) POSITIVE NEG ATIVE This test provides only a screen. Positive results should be repeated by a confi rmatory test.[facility] CenterUrine cocaine measurement (mass/volume)2019-09-30 08:44:00* Test Item Value Reference Range Interpretation Comments Urine Cocaine Screen (test code = 3398-5) NEGATIVE NEGATIVE [facility] CenterUrine cannabinoids detection by screening cjxorp3766-50-24 08:44:00* Test Item Value Reference Range Interpretation Comments Urine Cannabinoids Screen (test code = 09803-2) POSITIVE NEGATI VE This test provides only a screen. Positive results should be repeated by a confi rmatory test.[facility] CenterUrine methadone screen 2019-09-30 08:44:00* Test Item Value Reference Range Interpretation Comments Urine Methadone Screen (test code = 63025-0) NEGATIVE NEGATIVE THESE RESULTS ARE FOR MEDICAL TREATMENT ONLYTHIS REPORT CONTAINS UNCONFIR MED SCREENING RESULTS*POSITIVE RESULTS WILL BE CONFIRMED BY REFERENCE LAB UPON R EQUEST CUT-OFFDRUG CLASS CONCENTRATION ng/mLAmphetamines 1000Methamphetamines 1000Cocaine Metabolite 300Opiate 300Phencyc lidine 25Cannabinoid 50Barbiturates 300Benzodiazepine 300Methadone 300[facility] urobilinogen measurement by test strip (mass/volume)2019-09-30 08:44:00* Test Item Value Reference Range Interpretation Comments Urine Urobilinogen (test code = 48685-0) 0.2 0.2-1 [facility] CenterUrine total bilirubin measurement (mass/volume)2019-09-30 08:44:00* Test Item Value Reference Range Interpretation Comments Urine Bilirubin (test code = 1978-6) NEGATIVE NEGATIVE [facility] CenterUrine erythrocytes mhptgkjhd6256-17-42 08:44:00* Test Item Value Reference Range Interpretation Comments Urine Blood (test code = 92452-3) TRACE NEGATIVE [facility] CenterAutomated urine sediment leukocyte count by microscopy (number/high power field)2019-09-30 08:44:00* Test Item Value Reference Range Interpretation Comments Urine WBC (test code = 5821-4) 21-50 0-5 [facility] CenterErythrocytes detection in urine sediment by light uwncyyrnly6757-40-25 08:44:00* Test Item Value Reference Range Interpretation Comments Urine RBC (test code = 80668-1) 6-10 0-5 [facility] CenterBacteria detection in urine sediment by light xfbclxdvvi8412-74-42 08:44:00* Test Item Value Reference Range Interpretation Comments Urine Bacteria (test code = 06903-6) FEW NONE [facility] CenterEpithelial cells detection in urine sediment by light mtwnxnddyf0165-49-38 08:44:00* Test Item Value Reference Range Interpretation Comments Urine Epithelial Cells (test code = 97621-8) RARE NONE [facility] CenterCapillary blood glucose measurement by glucometer (mass/volume)2019-09-24 07:23:00* Test Item Value Reference Range Interpretation Comments Bedside Glucose (test code = 26806-2) 83 70-120 Meter ID: [id number] [facility] – Medical CenterCapillary blood glucose measurement by glucometer (mass/volume)2019-09-24 07:23:00* Test Item Value Reference Range Interpretation Comments Bedside Glucose (test code = 73658-4) 83 70-120 Meter ID: [id number] [facility] CenterCapillary blood glucose measurement by glucometer (mass/volume)2019-09-24 07:23:00* Test Item Value Reference Range Interpretation Comments Bedside Glucose (test code = 38922-0) 83 70-120 Meter ID: [id number] [facility] CenterTroponin I measurement by highly sensitive enzyme tcldbodkppp2575-32-51 09:58:00* Test Item Value Reference Range Interpretation Comments Troponin I (test code = 40081-8) 0.016 0-0.300 [facility] CenterTroponin I measurement by highly sensitive enzyme nymjnplufcm7868-50-47 09:58:00* Test Item Value Reference Range Interpretation Comments Troponin I (test code = 66678-8) 0.016 0-0.300 [facility] CenterBl[facility] leukocytes automated count (number/volume)2019-09-23 05:42:00* Test Item Value Reference Range Interpretation Comments White Blood Count (test code = 6690-2) 8.62 4.8-10.8 [facility] erythrocytes automated count (number/volume)2019-09-23 05:42:00* Test Item Value Reference Range Interpretation Comments Red Blood Count (test code = 789-8) 3.57 4.3-5.7 [facility] CenterBlood hemoglobin measurement (moles/volume)2019-09-23 05:42:00* Test Item Value Reference Range Interpretation Comments Hemoglobin (test code = 29845-6) 10.3 14.0-18.0 [facility] CenterAutomated blood hematocrit (volume fraction)2019-09-23 05:42:00* Test Item Value Reference Range Interpretation Comments Hematocrit (test code = 4544-3) 32.2 38.2-49.6 [facility] CenterAutomated erythrocyte mean corpuscular frhbqu3651-37-28 05:42:00* Test Item Value Reference Range Interpretation Comments Mean Corpuscular Volume (test code = 787-2) 90.2 81-99 [facility] CenterAutomated erythrocyte mean corpuscular hemoglobin (mass per erythrocyte)2019-09-23 05:42:00* Test Item Value Reference Range Interpretation Comments Mean Corpuscular Hemoglobin (test code = 785-6) 28.9 28-32 [facility] CenterAutomated erythrocyte mean corpuscular hemoglobin concentration measurement (mass/volume)2019-09-23 05:42:00* Test Item Value Reference Range Interpretation Comments Mean Corpuscular Hemoglobin Concent (test code = 786-4) 32.0 31-35 [facility] CenterRDW GirYq-Jbm4348-91-26 05:42:00* Test Item Value Reference Range Interpretation Comments Red Cell Distribution Width (test code = 25651-9) 13.7 11.7 -14.4 [facility] CenterAutomated blood platelet count (count/volume)2019-09-23 05:42:00* Test Item Value Reference Range Interpretation Comments Platelet Count (test code = 777-3) 183 140-360 [facility] CenterAutunc health appalachianed blood segmented neutrophil count as percentage of total qvyuauuspm5804-62-71 05:42:00* Test Item Value Reference Range Interpretation Comments Neutrophils (%) (Auto) (test code = 85755-3) 78.4 38.7-80.0 [facility] CenterAutomated blood lymphocyte count as percentage ot total nvkhiycbxp0617-78-44 05:42:00* Test Item Value Reference Range Interpretation Comments Lymphocytes (%) (Auto) (test code = 736-9) 13.1 18.0-39.1 [facility] CenterAutomated blood monocyte count as percentage of total ajtomciqob1085-27-55 05:42:00* Test Item Value Reference Range Interpretation Comments Monocytes (%) (Auto) (test code = 5905-5) 7.7 4.4-11.3 [facility] CenterAutomated blood eosinophil count as percentage of total liqbhufioq2917-12-07 05:42:00* Test Item Value Reference Range Interpretation Comments Eosinophils (%) (Auto) (test code = 713-8) 0.1 0.0-6.0 [facility] CenterAutomated blood basophil count as percentage of total hbghpvyowt2961-78-77 05:42:00* Test Item Value Reference Range Interpretation Comments Basophils (%) (Auto) (test code = 706-2) 0.5 0.0-1.0 [facility] CenterFluoroscopic procedure less than one hour fyxibqpw8475-02-00 05:42:00* Test Item Value Reference Range Interpretation Comments IM GRANULOCYTES % (test code = IM GRANULOCYTES %) 0.2 0.0- 1.0 [facility] CenterAutomated blood neutrophil count 2019-09-23 05:42:00* Test Item Value Reference Range Interpretation Comments Neutrophils # (Auto) (test code = 751-8) 6.8 2.1-6.9 [facility] CenterBlood lymphocytes count (number/volume) 2019-09-23 05:42:00* Test Item Value Reference Range Interpretation Comments Lymphocytes # (Auto) (test code = 54651-0) 1.1 1.0-3.2 [facility] CenterBlwinona [facility] hospital monocytes automated count (number/volume)2019-09-23 05:42:00* Test Item Value Reference Range Interpretation Comments Monocytes # (Auto) (test code = 742-7) 0.7 0.2-0.8 [facility] CenterAutomated blood eosinophil count 2019-09-23 05:42:00* Test Item Value Reference Range Interpretation Comments Eosinophils # (Auto) (test code = 711-2) 0.0 0.0-0.4 [facility] CenterAutomated blood basophil count (count/volume)2019-09-23 05:42:00* Test Item Value Reference Range Interpretation Comments Basophils # (Auto) (test code = 704-7) 0.0 0.0-0.1 [facility] CenterFluoroscopic procedure less than one hour kpqqkkya7547-01-51 05:42:00* Test Item Value Reference Range Interpretation Comments Absolute Immature Granulocyte (auto (zeenat t code = Absolute Immature Granulocyte (auto) 0.02 0-0.1 [facility] sodium measurement (moles/volume)2019-09-23 05:42:00* Test Item Value Reference Range Interpretation Comments Sodium Level (test code = 2951-2) 138 136-145 [facility] Hospitaler[facility] plasma potassium measurement (moles/volume)2019-09-23 05:42:00* Test Item Value Reference Range Interpretation Comments Potassium Level (test code = 2823-3) 3.6 3.5-5.1 [facility] Hospitaler[facility] or plasma chloride measurement (moles/volume)2019-09-23 05:42:00* Test Item Value Reference Range Interpretation Comments Chloride Level (test code = 2075-0) 101 98-107 [facility] Hospitalerum or plasma carbon dioxide, total measurement (moles/volume)2019-09-23 05:42:00* Test Item Value Reference Range Interpretation Comments Carbon Dioxide Level (test code = 2028-9) 28 22-29 [facility] Hospitaler[facility] or plasma anion hnk7733-73-71 05:42:00* Test Item Value Reference Range Interpretation Comments Anion Gap (test code = 59034-6) 12.6 8-16 [facility] Hospitaler[facility] plasma urea nitrogen measurement (mass/volume)2019-09-23 05:42:00* Test Item Value Reference Range Interpretation Comments Blood Urea Nitrogen (test code = 3094-0) 22 7-26 [facility] Hospitalerum or plasma creatinine measurement (mass/volume)2019-09-23 05:42:00* Test Item Value Reference Range Interpretation Comments Creatinine (test code = 2160-0) 1.16 0.72-1.25 [facility] Hospitalerum or plasma urea nitrogen/creatinine mass sdunz1812-92-54 05:42:00* Test Item Value Reference Range Interpretation Comments BUN/Creatinine Ratio (test code = 3097-3) 19 6-25 [facility] CenterEstimated glomerular filtration rate (GFR) bdwvbtprdwolr6234-60-95 05:42:00* Test Item Value Reference Range Interpretation Comments Estimat Glomerular Filtration Rate (test code = 137950370) > 60 >60 Ranges were taken from the National Kidney Disease Education Program and the [facility] literature.Reference ranges:60 or greater: Xgnfzv15-62 ( for 3 consecutive months): Chronic kidney disease 15 or less: Kidney failureCHRISTUS Santa [facility] – Medical CenterGlucose pmlhvaipeug4161-66-47 05:42:00* Test Item Value Reference Range Interpretation Comments Glucose Level (test code = ZCY1659) 266 74-118 [facility] Hospitaler[facility] plasma calcium measurement (mass/volume)2019-09-23 05:42:00* Test Item Value Reference Range Interpretation Comments Calcium Level (test code = 39353-0) 8.3 8.4-10.2 [facility] Hospitalerum or plasma total bilirubin measurement (mass/volume)2019-09-23 05:42:00* Test Item Value Reference Range Interpretation Comments Total Bilirubin (test code = 1975-2) 0.4 0.2-1.2 [facility] CenterFluoroscopic procedure less than one hour kptutssx0615-83-72 05:42:00* Test Item Value Reference Range Interpretation Comments Aspartate Amino Transf (AST/SGOT) (test code = Aspartate Amino Transf (AST/SGOT)) 14 5-34 [facility] Hospitalerum or plasma alanine aminotransferase measurement (enzymatic activity/volume)2019-09-23 05:42:00* Test Item Value Reference Range Interpretation Comments Alanine Aminotransferase (ALT/SGPT) (test code = 1742-6) 14 0-55 [facility] Hospitalerum or plasma protein measurement (mass/volume)2019-09-23 05:42:00* Test Item Value Reference Range Interpretation Comments Total Protein (test code = 2885-2) 6.2 6.5-8.1 [facility] Hospitaler[facility] or plasma albumin measurement (mass/volume)2019-09-23 05:42:00* Test Item Value Reference Range Interpretation Comments Albumin (test code = 1751-7) 3.4 3.5-5.0 [facility] CenterPlasma globulin measurement (mass/volume) 2019-09-23 05:42:00* Test Item Value Reference Range Interpretation Comments Globulin (test code = 38613-4) 2.8 2.3-3.5 [facility] Hospitalerum or plasma albumin/globulin mass gffwy7302-06-96 05:42:00* Test Item Value Reference Range Interpretation Comments Albumin/Globulin Ratio (test code = 1759-0) 1.2 0.8-2.0 [facility] Hospitaler[facility] or plasma alkaline phosphatase measurement (enzymatic activity/volume)2019-09-23 05:42:00* Test Item Value Reference Range Interpretation Comments Alkaline Phosphatase (test code = 6768-6) 108 40-150 [facility] CenterBlood leukocytes automated count (number/volume)2019-09-23 05:42:00* Test Item Value Reference Range Interpretation Comments White Blood Count (test code = 6690-2) 8.62 4.8-10.8 [facility] CenterBlwinona [facility] hospital erythrocytes automated count (number/volume)2019-09-23 05:42:00* Test Item Value Reference Range Interpretation Comments Red Blood Count (test code = 789-8) 3.57 4.3-5.7 [facility] CenterBlood hemoglobin measurement (moles/volume)2019-09-23 05:42:00* Test Item Value Reference Range Interpretation Comments Hemoglobin (test code = 06491-9) 10.3 14.0-18.0 [facility] CenterAutomated blood hematocrit (volume fraction)2019-09-23 05:42:00* Test Item Value Reference Range Interpretation Comments Hematocrit (test code = 4544-3) 32.2 38.2-49.6 [facility] CenterAutomated erythrocyte mean corpuscular gitmxx4285-95-44 05:42:00* Test Item Value Reference Range Interpretation Comments Mean Corpuscular Volume (test code = 787-2) 90.2 81-99 [facility] CenterAutomated erythrocyte mean corpuscular hemoglobin (mass per erythrocyte)2019-09-23 05:42:00* Test Item Value Reference Range Interpretation Comments Mean Corpuscular Hemoglobin (test code = 785-6) 28.9 28-32 [facility] CenterAutomated erythrocyte mean corpuscular hemoglobin concentration measurement (mass/volume)2019-09-23 05:42:00* Test Item Value Reference Range Interpretation Comments Mean Corpuscular Hemoglobin Concent (test code = 786-4) 32.0 31-35 [facility] CenterRDW VafOh-Kgk6556-94-26 05:42:00* Test Item Value Reference Range Interpretation Comments Red Cell Distribution Width (test code = 04892-4) 13.7 11.7 -14.4 [facility] CenterAutomated blood platelet count (count/volume)2019-09-23 05:42:00* Test Item Value Reference Range Interpretation Comments Platelet Count (test code = 777-3) 183 140-360 [facility] CenterAutomated blood segmented neutrophil count as percentage of total wzwvykfjgb2150-14-29 05:42:00* Test Item Value Reference Range Interpretation Comments Neutrophils (%) (Auto) (test code = 27512-7) 78.4 38.7-80.0 [facility] CenterAutomated blood lymphocyte count as percentage ot total atacgdrukm5081-33-80 05:42:00* Test Item Value Reference Range Interpretation Comments Lymphocytes (%) (Auto) (test code = 736-9) 13.1 18.0-39.1 [facility] CenterAutomated blood monocyte count as percentage of total qyofdgpykr1245-86-35 05:42:00* Test Item Value Reference Range Interpretation Comments Monocytes (%) (Auto) (test code = 5905-5) 7.7 4.4-11.3 [facility] CenterAutomated blood eosinophil count as percentage of total ymsafgowci9203-84-24 05:42:00* Test Item Value Reference Range Interpretation Comments Eosinophils (%) (Auto) (test code = 713-8) 0.1 0.0-6.0 [facility] CenterAutomated blood basophil count as percentage of total ekchtqgisn0413-61-50 05:42:00* Test Item Value Reference Range Interpretation Comments Basophils (%) (Auto) (test code = 706-2) 0.5 0.0-1.0 [facility] CenterFluoroscopic procedure less than one hour xoruwnqd7559-84-37 05:42:00* Test Item Value Reference Range Interpretation Comments IM GRANULOCYTES % (test code = IM GRANULOCYTES %) 0.2 0.0- 1.0 [facility] CenterAutomated blood neutrophil count 2019-09-23 05:42:00* Test Item Value Reference Range Interpretation Comments Neutrophils # (Auto) (test code = 751-8) 6.8 2.1-6.9 [facility] CenterBlood lymphocytes count (number/volume) 2019-09-23 05:42:00* Test Item Value Reference Range Interpretation Comments Lymphocytes # (Auto) (test code = 72663-0) 1.1 1.0-3.2 [facility] CenterBlwinona [facility] hospital monocytes automated count (number/volume)2019-09-23 05:42:00* Test Item Value Reference Range Interpretation Comments Monocytes # (Auto) (test code = 742-7) 0.7 0.2-0.8 [facility] CenterAutomated blood eosinophil count 2019-09-23 05:42:00* Test Item Value Reference Range Interpretation Comments Eosinophils # (Auto) (test code = 711-2) 0.0 0.0-0.4 [facility] CenterAutomated blood basophil count (count/volume)2019-09-23 05:42:00* Test Item Value Reference Range Interpretation Comments Basophils # (Auto) (test code = 704-7) 0.0 0.0-0.1 [facility] CenterFluoroscopic procedure less than one hour alylzykz4812-56-44 05:42:00* Test Item Value Reference Range Interpretation Comments Absolute Immature Granulocyte (auto (zeenat t code = Absolute Immature Granulocyte (auto) 0.02 0-0.1 [facility]er[facility] or plasma sodium measurement (moles/volume)2019-09-23 05:42:00* Test Item Value Reference Range Interpretation Comments Sodium Level (test code = 2951-2) 138 136-145 [facility] Hospitalerum or plasma potassium measurement (moles/volume)2019-09-23 05:42:00* Test Item Value Reference Range Interpretation Comments Potassium Level (test code = 2823-3) 3.6 3.5-5.1 [facility] Hospitalerum or plasma chloride measurement (moles/volume)2019-09-23 05:42:00* Test Item Value Reference Range Interpretation Comments Chloride Level (test code = 2075-0) 101 98-107 [facility] Hospitalerum or plasma carbon dioxide, total measurement (moles/volume)2019-09-23 05:42:00* Test Item Value Reference Range Interpretation Comments Carbon Dioxide Level (test code = 2028-9) 28 22-29 [facility]er[facility] or plasma anion lbg9506-79-40 05:42:00* Test Item Value Reference Range Interpretation Comments Anion Gap (test code = 97203-9) 12.6 8-16 [facility]er[facility] or plasma urea nitrogen measurement (mass/volume)2019-09-23 05:42:00* Test Item Value Reference Range Interpretation Comments Blood Urea Nitrogen (test code = 3094-0) 22 7-26 [facility]er[facility] or plasma creatinine measurement (mass/volume)2019-09-23 05:42:00* Test Item Value Reference Range Interpretation Comments Creatinine (test code = 2160-0) 1.16 0.72-1.25 [facility] Hospitalerum or plasma urea nitrogen/creatinine mass hwapr6254-96-20 05:42:00* Test Item Value Reference Range Interpretation Comments BUN/Creatinine Ratio (test code = 3097-3) 19 6-25 [facility] CenterEstimated glomerular filtration rate (GFR) rloshvfwmizrj1433-77-60 05:42:00* Test Item Value Reference Range Interpretation Comments Estimat Glomerular Filtration Rate (test code = 224886889) > 60 >60 Ranges were taken from the National Kidney Disease Education Program and the [facility] Foundation literature.Reference ranges:60 or greater: Qwpvlx58-01 ( for 3 consecutive months): Chronic kidney disease 15 or less: Kidney failureCHRISTUS [facility] – Medical CenterGlucose gfrwoqlsbsk8669-66-39 05:42:00* Test Item Value Reference Range Interpretation Comments Glucose Level (test code = WBM3728) 266 74-118 [facility]er[facility] or plasma calcium measurement (mass/volume)2019-09-23 05:42:00* Test Item Value Reference Range Interpretation Comments Calcium Level (test code = 09202-5) 8.3 8.4-10.2 [facility]er[facility] or plasma total bilirubin measurement (mass/volume)2019-09-23 05:42:00* Test Item Value Reference Range Interpretation Comments Total Bilirubin (test code = 1975-2) 0.4 0.2-1.2 [facility] CenterFluoroscopic procedure less than one hour unwffnms3193-55-16 05:42:00* Test Item Value Reference Range Interpretation Comments Aspartate Amino Transf (AST/SGOT) (test code = Aspartate Amino Transf (AST/SGOT)) 14 5-34 [facility] Hospitalerum or plasma alanine aminotransferase measurement (enzymatic activity/volume)2019-09-23 05:42:00* Test Item Value Reference Range Interpretation Comments Alanine Aminotransferase (ALT/SGPT) (test code = 1742-6) 14 0-55 [facility]er[facility] or plasma protein measurement (mass/volume)2019-09-23 05:42:00* Test Item Value Reference Range Interpretation Comments Total Protein (test code = 2885-2) 6.2 6.5-8.1 [facility] Hospitalerum or plasma albumin measurement (mass/volume)2019-09-23 05:42:00* Test Item Value Reference Range Interpretation Comments Albumin (test code = 1751-7) 3.4 3.5-5.0 [facility] CenterPlasma globulin measurement (mass/volume) 2019-09-23 05:42:00* Test Item Value Reference Range Interpretation Comments Globulin (test code = 51351-7) 2.8 2.3-3.5 [facility]er[facility] or plasma albumin/globulin mass maqbc1569-65-46 05:42:00* Test Item Value Reference Range Interpretation Comments Albumin/Globulin Ratio (test code = 1759-0) 1.2 0.8-2.0 [facility]er[facility] or plasma alkaline phosphatase measurement (enzymatic activity/volume)2019-09-23 05:42:00* Test Item Value Reference Range Interpretation Comments Alkaline Phosphatase (test code = 6768-6) 108 40-150 [facility]AB[facility] ([facility])2019-09-22 13:59:00 [facility] [address] [address] Patient Name: BREE LINDSAY MR #: [id number] : 1975 Age/Sex: 43/M Req #: [id number] Adm Physician: RUSLAN CARTER MD Ordered by: RUSLAN CARTER MD Report #: [id number] Location: MED/SURG3 Room/Bed: [facility] Procedure: [id number] DX/ABDOMEN-1V IEW (KUB) Exam Date: 09/22/19 Exam [...] Interpretation Comments Bedside Glucose (test code = 11720-1) 179 70-120 Meter ID: [id number] [facility] HospitalCapillary blood glucose measurement by glucometer (mass/volume)2019-08-25 11:40:00* Test Item Value Reference Range Interpretation Comments Bedside Glucose (test code = 03588-2) 179 70-120 Meter ID: [id number] [facility] HospitalFluoroscopic procedure less than one hour mctufqan5802-25-40 13:20:00* Test Item Value Reference Range Interpretation [...] complexity tests.Testing performed by [facility] [address] [phone] Director: Yuri Perry M.D.CLIA # [id number] [facility] Fluoroscopic procedure less than one hour ijrnvctj2180-79-14 13:20:00* Test Item Value Reference Range Interpretation [...] complexity tests.Testing performed by [facility] [id number] [place], [place] [phone] Director: Yuri Perry M.D.CLIA # [id number] [facility] Fluoroscopic procedure less than one hour eusbptyv1091-46-02 13:20:00* Test Item Value Reference Range Interpretation [...] complexity tests.Testing performed by [facility] [id number] [place], [place] [phone] Director: Yuri Perry M.D.[facility] # [id number] [facility] Fluoroscopic procedure less than one hour qrcoconc4303-90-55 13:20:00* Test Item Value Reference Range Interpretation [...] complexity tests.Testing performed by [facility] [address] [phone] Director: Yuri Perry M.D.CLIA # [id number] [facility] Fluoroscopic procedure less than one hour qdntrqho2908-01-86 13:20:00* Test Item Value Reference Range Interpretation [...] complexity tests.Testing performed by [facility] [id number] [place], [place] [phone] Director: Yuri Perry M.D.CLIA # [id number] [facility] Capillary blood glucose measurement by glucometer (mass/volume)2019-07-24 11:15:00* Test Item Value Reference Range Interpretation Comments Bedside Glucose (test code = 99283-9) 145 70-120 Meter ID: [id number] [facility] HospitalBlood leukocytes automated count (number/volume)2019-07-24 06:10:00* Test Item Value Reference Range Interpretation Comments White Blood Count (test code = 6690-2) 6.43 4.8-10.8 [facility] CenterBlood erythrocytes automated count (number/volume)2019-07-24 06:10:00* Test Item Value Reference Range Interpretation Comments Red Blood Count (test code = 789-8) 3.29 4.3-5.7 [facility] CenterBlood hemoglobin measurement (moles/volume)2019-07-24 06:10:00* Test Item Value Reference Range Interpretation Comments Hemoglobin (test code = 22189-1) 9.4 14.0-18.0 [facility] CenterAutomated blood hematocrit (volume fraction)2019-07-24 06:10:00* Test Item Value Reference Range Interpretation Comments Hematocrit (test code = 4544-3) 29.7 38.2-49.6 [facility] CenterAutomated erythrocyte mean corpuscular foqcjn5867-21-04 06:10:00* Test Item Value Reference Range Interpretation Comments Mean Corpuscular Volume (test code = 787-2) 90.3 81-99 [facility] CenterAutomated erythrocyte mean corpuscular hemoglobin (mass per erythrocyte)2019-07-24 06:10:00* Test Item Value Reference Range Interpretation Comments Mean Corpuscular Hemoglobin (test code = 785-6) 28.6 28-32 [facility] CenterAutomated erythrocyte mean corpuscular hemoglobin concentration measurement (mass/volume)2019-07-24 06:10:00* Test Item Value Reference Range Interpretation Comments Mean Corpuscular Hemoglobin Concent (test code = 786-4) 31.6 31-35 [facility] [facility] HybCe-Gvj4235-37-26 06:10:00* Test Item Value Reference Range Interpretation Comments Red Cell Distribution Width (test code = 91180-5) 14.5 11.7 -14.4 [facility] CenterAutomated blood platelet count (count/volume)2019-07-24 06:10:00* Test Item Value Reference Range Interpretation Comments Platelet Count (test code = 777-3) 132 140-360 [facility] CenterAutomated blood segmented neutrophil count as percentage of total ibbfxuvjwq4776-93-28 06:10:00* Test Item Value Reference Range Interpretation Comments Neutrophils (%) (Auto) (test code = 70213-5) 61.3 38.7-80.0 [facility] CenterAutomated blood lymphocyte count as percentage ot total oxeuhazlvf7855-52-39 06:10:00* Test Item Value Reference Range Interpretation Comments Lymphocytes (%) (Auto) (test code = 736-9) 24.9 18.0-39.1 [facility] CenterAutomated blood monocyte count as percentage of total guohbbhwpv5139-46-52 06:10:00* Test Item Value Reference Range Interpretation Comments Monocytes (%) (Auto) (test code = 5905-5) 10.0 4.4-11.3 [facility] CenterAutomated blood eosinophil count as percentage of total ovmaykrowp3262-54-15 06:10:00* Test Item Value Reference Range Interpretation Comments Eosinophils (%) (Auto) (test code = 713-8) 2.6 0.0-6.0 [facility] CenterAutomated blood basophil count as percentage of total hfeuovqsgb3713-48-89 06:10:00* Test Item Value Reference Range Interpretation Comments Basophils (%) (Auto) (test code = 706-2) 0.9 0.0-1.0 [facility] Medical CenterFluoroscopic procedure less than one hour ofgujebr9630-02-99 06:10:00* Test Item Value Reference Range Interpretation Comments IM GRANULOCYTES % (test code = IM GRANULOCYTES %) 0.3 0.0- 1.0 [facility] CenterAutomated blood neutrophil count 2019-07-24 06:10:00* Test Item Value Reference Range Interpretation Comments Neutrophils # (Auto) (test code = 751-8) 3.9 2.1-6.9 [facility] CenterBlood lymphocytes count (number/volume) 2019-07-24 06:10:00* Test Item Value Reference Range Interpretation Comments Lymphocytes # (Auto) (test code = 62095-9) 1.6 1.0-3.2 [facility] CenterBlood monocytes automated count (number/volume)2019-07-24 06:10:00* Test Item Value Reference Range Interpretation Comments Monocytes # (Auto) (test code = 742-7) 0.6 0.2-0.8 [facility] CenterAutomated blood eosinophil count 2019-07-24 06:10:00* Test Item Value Reference Range Interpretation Comments Eosinophils # (Auto) (test code = 711-2) 0.2 0.0-0.4 [facility] CenterAutomated blood basophil count (count/volume)2019-07-24 06:10:00* Test Item Value Reference Range Interpretation Comments Basophils # (Auto) (test code = 704-7) 0.1 0.0-0.1 [facility] CenterFluoroscopic procedure less than one hour wcuubxco1995-85-73 06:10:00* Test Item Value Reference Range Interpretation Comments Absolute Immature Granulocyte (auto (zeenat t code = Absolute Immature Granulocyte (auto) 0.02 0-0.1 [facility] (moles/volume)2019-07-24 06:10:00* Test Item Value Reference Range Interpretation Comments Sodium Level (test code = 2951-2) 136 136-145 [facility] potassium measurement (moles/volume)2019-07-24 06:10:00* Test Item Value Reference Range Interpretation Comments Potassium Level (test code = 2823-3) 3.7 3.5-5.1 [facility] chloride measurement (moles/volume)2019-07-24 06:10:00* Test Item Value Reference Range Interpretation Comments Chloride Level (test code = 2075-0) 106 98-107 [facility]er[facility] carbon dioxide, total measurement (moles/volume)2019-07-24 06:10:00* Test Item Value Reference Range Interpretation Comments Carbon Dioxide Level (test code = 2028-9) 23 22-29 [facility] anion unw2461-24-58 06:10:00* Test Item Value Reference Range Interpretation Comments Anion Gap (test code = 45509-9) 10.7 8-16 [facility] urea nitrogen measurement (mass/volume)2019-07-24 06:10:00* Test Item Value Reference Range Interpretation Comments Blood Urea Nitrogen (test code = 3094-0) 13 7-26 [facility] creatinine measurement (mass/volume)2019-07-24 06:10:00* Test Item Value Reference Range Interpretation Comments Creatinine (test code = 2160-0) 1.24 0.72-1.25 [facility] urea nitrogen/creatinine mass ybgeb8937-08-62 06:10:00* Test Item Value Reference Range Interpretation Comments BUN/Creatinine Ratio (test code = 3097-3) 10 6-25 [facility] CenterEstimated glomerular filtration rate (GFR) hkgwazunbxvty0057-15-09 06:10:00* Test Item Value Reference Range Interpretation Comments Estimat Glomerular Filtration Rate (test code = 584846866) > 60 >60 Ranges were taken from the National Kidney Disease Education Program and the [facility] Kidney Foundation literature.Reference ranges:60 or greater: [id number] ( for 3 consecutive months): Chronic kidney disease 15 or less: Kidney failureCHRIST[facility] – Medical CenterGlucose qgvlhjzxtbq5459-70-02 06:10:00* Test Item Value Reference Range Interpretation Comments Glucose Level (test code = ITP8410) 148 74-118 [facility] calcium measurement (mass/volume)2019-07-24 06:10:00* Test Item Value Reference Range Interpretation Comments Calcium Level (test code = 57444-6) 8.6 8.4-10.2 [facility] total bilirubin measurement (mass/volume)2019-07-24 06:10:00* Test Item Value Reference Range Interpretation Comments Total Bilirubin (test code = 1975-2) 0.5 0.2-1.2 [facility] CenterFluoroscopic procedure less than one hour hxmnuagw6235-91-12 06:10:00* Test Item Value Reference Range Interpretation Comments Aspartate Amino Transf (AST/SGOT) (test code = Aspartate Amino Transf (AST/SGOT)) 14 5-34 [facility] Hospitaler[facility] plasma alanine aminotransferase measurement (enzymatic activity/volume)2019-07-24 06:10:00* Test Item Value Reference Range Interpretation Comments Alanine Aminotransferase (ALT/SGPT) (test code = 1742-6) 15 0-55 [facility]er[facility] protein measurement (mass/volume)2019-07-24 06:10:00* Test Item Value Reference Range Interpretation Comments Total Protein (test code = 2885-2) 6.2 6.5-8.1 [facility]er[facility] albumin measurement (mass/volume)2019-07-24 06:10:00* Test Item Value Reference Range Interpretation Comments Albumin (test code = 1751-7) 3.1 3.5-5.0 [facility] Medical CenterPlasma globulin measurement (mass/volume) 2019-07-24 06:10:00* Test Item Value Reference Range Interpretation Comments Globulin (test code = 51327-5) 3.1 2.3-3.5 [facility]er[facility] albumin/globulin mass krfuh0535-99-48 06:10:00* Test Item Value Reference Range Interpretation Comments Albumin/Globulin Ratio (test code = 1759-0) 1.0 0.8-2.0 [facility]er[facility] alkaline phosphatase measurement (enzymatic activity/volume)2019-07-24 06:10:00* Test Item Value Reference Range Interpretation Comments Alkaline Phosphatase (test code = 6768-6) 106 40-150 [facility]er[facility] amylase measurement (enzymatic activity/volume)2019-07-24 06:10:00* Test Item Value Reference Range Interpretation Comments Amylase Level (test code = 1798-8) 36 25-125 [facility]er[facility] lipase measurement (enzymatic activity/volume)2019-07-24 06:10:00* Test Item Value Reference Range Interpretation Comments Lipase (test code = 3040-3) < 4 8-78 [facility] CenterBlood leukocytes automated count (number/volume)2019-07-24 06:10:00* Test Item Value Reference Range Interpretation Comments White Blood Count (test code = 6690-2) 6.43 4.8-10.8 [facility] CenterBlood erythrocytes automated count (number/volume)2019-07-24 06:10:00* Test Item Value Reference Range Interpretation Comments Red Blood Count (test code = 789-8) 3.29 4.3-5.7 [facility] CenterBlood hemoglobin measurement (moles/volume)2019-07-24 06:10:00* Test Item Value Reference Range Interpretation Comments Hemoglobin (test code = 45425-9) 9.4 14.0-18.0 [facility] CenterAutomated blood hematocrit (volume fraction)2019-07-24 06:10:00* Test Item Value Reference Range Interpretation Comments Hematocrit (test code = 4544-3) 29.7 38.2-49.6 [facility] CenterAutomated erythrocyte mean corpuscular pjzieo1749-58-33 06:10:00* Test Item Value Reference Range Interpretation Comments Mean Corpuscular Volume (test code = 787-2) 90.3 81-99 [facility] CenterAutomated erythrocyte mean corpuscular hemoglobin (mass per erythrocyte)2019-07-24 06:10:00* Test Item Value Reference Range Interpretation Comments Mean Corpuscular Hemoglobin (test code = 785-6) 28.6 28-32 [facility] CenterAutomated erythrocyte mean corpuscular hemoglobin concentration measurement (mass/volume)2019-07-24 06:10:00* Test Item Value Reference Range Interpretation Comments Mean Corpuscular Hemoglobin Concent (test code = 786-4) 31.6 31-35 [facility] Medical CenterRDW UvoUa-Yom1904-61-26 06:10:00* Test Item Value Reference Range Interpretation Comments Red Cell Distribution Width (test code = 32378-4) 14.5 11.7 -14.4 [facility] CenterAutomated blood platelet count (count/volume)2019-07-24 06:10:00* Test Item Value Reference Range Interpretation Comments Platelet Count (test code = 777-3) 132 140-360 [facility] CenterAutomated blood segmented neutrophil count as percentage of total zeczmizxqr0936-41-34 06:10:00* Test Item Value Reference Range Interpretation Comments Neutrophils (%) (Auto) (test code = 19663-9) 61.3 38.7-80.0 [facility] CenterAutomated blood lymphocyte count as percentage ot total quogetyvkb3282-53-72 06:10:00* Test Item Value Reference Range Interpretation Comments Lymphocytes (%) (Auto) (test code = 736-9) 24.9 18.0-39.1 [facility] CenterAutomated blood monocyte count as percentage of total plcpnkisty9233-39-86 06:10:00* Test Item Value Reference Range Interpretation Comments Monocytes (%) (Auto) (test code = 5905-5) 10.0 4.4-11.3 [facility] CenterAutomated blood eosinophil count as percentage of total umhipegqph4916-82-04 06:10:00* Test Item Value Reference Range Interpretation Comments Eosinophils (%) (Auto) (test code = 713-8) 2.6 0.0-6.0 [facility] CenterAutomated blood basophil count as percentage of total rjxkoyrgml9036-97-70 06:10:00* Test Item Value Reference Range Interpretation Comments Basophils (%) (Auto) (test code = 706-2) 0.9 0.0-1.0 [facility] CenterFluoroscopic procedure less than one hour qpmovnvp8523-40-98 06:10:00* Test Item Value Reference Range Interpretation Comments IM GRANULOCYTES % (test code = IM GRANULOCYTES %) 0.3 0.0- 1.0 [facility] CenterAutomated blood neutrophil count 2019-07-24 06:10:00* Test Item Value Reference Range Interpretation Comments Neutrophils # (Auto) (test code = 751-8) 3.9 2.1-6.9 [facility] CenterBlood lymphocytes count (number/volume) 2019-07-24 06:10:00* Test Item Value Reference Range Interpretation Comments Lymphocytes # (Auto) (test code = 18061-6) 1.6 1.0-3.2 [facility] CenterBlood monocytes automated count (number/volume)2019-07-24 06:10:00* Test Item Value Reference Range Interpretation Comments Monocytes # (Auto) (test code = 742-7) 0.6 0.2-0.8 [facility] CenterAutomated blood eosinophil count 2019-07-24 06:10:00* Test Item Value Reference Range Interpretation Comments Eosinophils # (Auto) (test code = 711-2) 0.2 0.0-0.4 [facility] CenterAutomated blood basophil count (count/volume)2019-07-24 06:10:00* Test Item Value Reference Range Interpretation Comments Basophils # (Auto) (test code = 704-7) 0.1 0.0-0.1 [facility] CenterFluoroscopic procedure less than one hour emicbhip9709-87-66 06:10:00* Test Item Value Reference Range Interpretation Comments Absolute Immature Granulocyte (auto (zeenat t code = Absolute Immature Granulocyte (auto) 0.02 0-0.1 [facility] sodium measurement (moles/volume)2019-07-24 06:10:00* Test Item Value Reference Range Interpretation Comments Sodium Level (test code = 2951-2) 136 136-145 [facility]er[facility] potassium measurement (moles/volume)2019-07-24 06:10:00* Test Item Value Reference Range Interpretation Comments Potassium Level (test code = 2823-3) 3.7 3.5-5.1 [facility]er[facility] chloride measurement (moles/volume)2019-07-24 06:10:00* Test Item Value Reference Range Interpretation Comments Chloride Level (test code = 2075-0) 106 98-107 [facility]er[facility] plasma carbon dioxide, total measurement (moles/volume)2019-07-24 06:10:00* Test Item Value Reference Range Interpretation Comments Carbon Dioxide Level (test code = 2028-9) 23 22-29 [facility]er[facility] anion bru8285-52-02 06:10:00* Test Item Value Reference Range Interpretation Comments Anion Gap (test code = 83290-7) 10.7 8-16 [facility]er[facility] urea nitrogen measurement (mass/volume)2019-07-24 06:10:00* Test Item Value Reference Range Interpretation Comments Blood Urea Nitrogen (test code = 3094-0) 13 7-26 [facility]er[facility] creatinine measurement (mass/volume)2019-07-24 06:10:00* Test Item Value Reference Range Interpretation Comments Creatinine (test code = 2160-0) 1.24 0.72-1.25 [facility]er[facility] urea nitrogen/creatinine mass equig4023-14-29 06:10:00* Test Item Value Reference Range Interpretation Comments BUN/Creatinine Ratio (test code = 3097-3) 10 6-25 [facility] CenterEstimated glomerular filtration rate (GFR) ndsqynzwhrncm1263-62-52 06:10:00* Test Item Value Reference Range Interpretation Comments Estimat Glomerular Filtration Rate (test code = 996279700) > 60 >60 Ranges were taken from the National Kidney Disease Education Program and the [facility] Foundation literature.Reference ranges:60 or greater: [id number] ( for 3 consecutive months): Chronic kidney disease 15 or less: Kidney failureCHRIST[facility] – Medical CenterGlucose zmqxbcgwcjn3360-06-30 06:10:00* Test Item Value Reference Range Interpretation Comments Glucose Level (test code = GXY2674) 148 74-118 [facility] calcium measurement (mass/volume)2019-07-24 06:10:00* Test Item Value Reference Range Interpretation Comments Calcium Level (test code = 92662-6) 8.6 8.4-10.2 [facility]er[facility] plasma total bilirubin measurement (mass/volume)2019-07-24 06:10:00* Test Item Value Reference Range Interpretation Comments Total Bilirubin (test code = 1975-2) 0.5 0.2-1.2 [facility] CenterFluoroscopic procedure less than one hour dkmafgeb5472-46-01 06:10:00* Test Item Value Reference Range Interpretation Comments Aspartate Amino Transf (AST/SGOT) (test code = Aspartate Amino Transf (AST/SGOT)) 14 5-34 [facility]er[facility] alanine aminotransferase measurement (enzymatic activity/volume)2019-07-24 06:10:00* Test Item Value Reference Range Interpretation Comments Alanine Aminotransferase (ALT/SGPT) (test code = 1742-6) 15 0-55 [facility]er[facility] protein measurement (mass/volume)2019-07-24 06:10:00* Test Item Value Reference Range Interpretation Comments Total Protein (test code = 2885-2) 6.2 6.5-8.1 [facility]er[facility] albumin measurement (mass/volume)2019-07-24 06:10:00* Test Item Value Reference Range Interpretation Comments Albumin (test code = 1751-7) 3.1 3.5-5.0 [facility] CenterPlasma globulin measurement (mass/volume) 2019-07-24 06:10:00* Test Item Value Reference Range Interpretation Comments Globulin (test code = 75620-4) 3.1 2.3-3.5 [facility]er[facility] albumin/globulin mass xxzxe8699-95-10 06:10:00* Test Item Value Reference Range Interpretation Comments Albumin/Globulin Ratio (test code = 1759-0) 1.0 0.8-2.0 [facility]er[facility] alkaline phosphatase measurement (enzymatic activity/volume)2019-07-24 06:10:00* Test Item Value Reference Range Interpretation Comments Alkaline Phosphatase (test code = 6768-6) 106 40-150 [facility] amylase measurement (enzymatic activity/volume)2019-07-24 06:10:00* Test Item Value Reference Range Interpretation Comments Amylase Level (test code = 1798-8) 36 25-125 [facility]er[facility] plasma lipase measurement (enzymatic activity/volume)2019-07-24 06:10:00* Test Item Value Reference Range Interpretation Comments Lipase (test code = 3040-3) < 4 8-78 [facility] CenterBlood leukocytes automated count (number/volume)2019-07-24 06:10:00* Test Item Value Reference Range Interpretation Comments White Blood Count (test code = 6690-2) 6.43 4.8-10.8 [facility] CenterBlood erythrocytes automated count (number/volume)2019-07-24 06:10:00* Test Item Value Reference Range Interpretation Comments Red Blood Count (test code = 789-8) 3.29 4.3-5.7 [facility] CenterBlood hemoglobin measurement (moles/volume)2019-07-24 06:10:00* Test Item Value Reference Range Interpretation Comments Hemoglobin (test code = 89561-3) 9.4 14.0-18.0 [facility] CenterAutomated blood hematocrit (volume fraction)2019-07-24 06:10:00* Test Item Value Reference Range Interpretation Comments Hematocrit (test code = 4544-3) 29.7 38.2-49.6 [facility] CenterAutomated erythrocyte mean corpuscular oxkmnp0516-56-61 06:10:00* Test Item Value Reference Range Interpretation Comments Mean Corpuscular Volume (test code = 787-2) 90.3 81-99 [facility] CenterAutomated erythrocyte mean corpuscular hemoglobin (mass per erythrocyte)2019-07-24 06:10:00* Test Item Value Reference Range Interpretation Comments Mean Corpuscular Hemoglobin (test code = 785-6) 28.6 28-32 [facility] CenterAutomated erythrocyte mean corpuscular hemoglobin concentration measurement (mass/volume)2019-07-24 06:10:00* Test Item Value Reference Range Interpretation Comments Mean Corpuscular Hemoglobin Concent (test code = 786-4) 31.6 31-35 [facility] CenterRDW IguNh-Rtq8119-01-26 06:10:00* Test Item Value Reference Range Interpretation Comments Red Cell Distribution Width (test code = 15048-9) 14.5 11.7 -14.4 [facility] CenterAutomated blood platelet count (count/volume)2019-07-24 06:10:00* Test Item Value Reference Range Interpretation Comments Platelet Count (test code = 777-3) 132 140-360 [facility] CenterAutomated blood segmented neutrophil count as percentage of total wfupberapj9732-40-12 06:10:00* Test Item Value Reference Range Interpretation Comments Neutrophils (%) (Auto) (test code = 98599-5) 61.3 38.7-80.0 [facility] CenterAutomated blood lymphocyte count as percentage ot total mokfsvgsla1684-21-39 06:10:00* Test Item Value Reference Range Interpretation Comments Lymphocytes (%) (Auto) (test code = 736-9) 24.9 18.0-39.1 [facility] CenterAutomated blood monocyte count as percentage of total eqfhqwfvyi6652-13-24 06:10:00* Test Item Value Reference Range Interpretation Comments Monocytes (%) (Auto) (test code = 5905-5) 10.0 4.4-11.3 [facility] CenterAutomated blood eosinophil count as percentage of total noiadmkjsn7314-31-70 06:10:00* Test Item Value Reference Range Interpretation Comments Eosinophils (%) (Auto) (test code = 713-8) 2.6 0.0-6.0 [facility] CenterAutomated blood basophil count as percentage of total pwwftcdmxg9834-13-83 06:10:00* Test Item Value Reference Range Interpretation Comments Basophils (%) (Auto) (test code = 706-2) 0.9 0.0-1.0 [facility] CenterFluoroscopic procedure less than one hour kajdkrdl4902-99-45 06:10:00* Test Item Value Reference Range Interpretation Comments IM GRANULOCYTES % (test code = IM GRANULOCYTES %) 0.3 0.0- 1.0 [facility] CenterAutomated blood neutrophil count 2019-07-24 06:10:00* Test Item Value Reference Range Interpretation Comments Neutrophils # (Auto) (test code = 751-8) 3.9 2.1-6.9 [facility] CenterBlood lymphocytes count (number/volume) 2019-07-24 06:10:00* Test Item Value Reference Range Interpretation Comments Lymphocytes # (Auto) (test code = 63570-4) 1.6 1.0-3.2 [facility] CenterBlood monocytes automated count (number/volume)2019-07-24 06:10:00* Test Item Value Reference Range Interpretation Comments Monocytes # (Auto) (test code = 742-7) 0.6 0.2-0.8 [facility] CenterAutomated blood eosinophil count 2019-07-24 06:10:00* Test Item Value Reference Range Interpretation Comments Eosinophils # (Auto) (test code = 711-2) 0.2 0.0-0.4 [facility] CenterAutomated blood basophil count (count/volume)2019-07-24 06:10:00* Test Item Value Reference Range Interpretation Comments Basophils # (Auto) (test code = 704-7) 0.1 0.0-0.1 [facility] CenterFluoroscopic procedure less than one hour scmtqmrt4789-55-09 06:10:00* Test Item Value Reference Range Interpretation Comments Absolute Immature Granulocyte (auto (zeenat t code = Absolute Immature Granulocyte (auto) 0.02 0-0.1 [facility] sodium measurement (moles/volume)2019-07-24 06:10:00* Test Item Value Reference Range Interpretation Comments Sodium Level (test code = 2951-2) 136 136-145 [facility]er[facility] potassium measurement (moles/volume)2019-07-24 06:10:00* Test Item Value Reference Range Interpretation Comments Potassium Level (test code = 2823-3) 3.7 3.5-5.1 [facility] chloride measurement (moles/volume)2019-07-24 06:10:00* Test Item Value Reference Range Interpretation Comments Chloride Level (test code = 2075-0) 106 98-107 [facility]er[facility] carbon dioxide, total measurement (moles/volume)2019-07-24 06:10:00* Test Item Value Reference Range Interpretation Comments Carbon Dioxide Level (test code = 2028-9) 23 22-29 [facility] anion omr6160-39-61 06:10:00* Test Item Value Reference Range Interpretation Comments Anion Gap (test code = 99090-7) 10.7 8-16 [facility] urea nitrogen measurement (mass/volume)2019-07-24 06:10:00* Test Item Value Reference Range Interpretation Comments Blood Urea Nitrogen (test code = 3094-0) 13 - [facility] creatinine measurement (mass/volume)2019-07-24 06:10:00* Test Item Value Reference Range Interpretation Comments Creatinine (test code = 2160-0) 1.24 0.72-1.25 [facility] urea nitrogen/creatinine mass fsrer2341-58-86 06:10:00* Test Item Value Reference Range Interpretation Comments BUN/Creatinine Ratio (test code = 3097-3) 10 09-21 [facility] CenterEstimated glomerular filtration rate (GFR) snnqoxwbfttoa7502-81-87 06:10:00* Test Item Value Reference Range Interpretation Comments Estimat Glomerular Filtration Rate (test code = [id number]) > 60 >60 Ranges were taken from the National Kidney Disease Education Program and the [facility] literature.Reference ranges:60 or greater: [id number] ( for 3 consecutive months): Chronic kidney disease 15 or less: Kidney failureCHRISTUS [facility] Medical CenterGlucose hluvzirvkza2520-96-24 06:10:00* Test Item Value Reference Range Interpretation Comments Glucose Level (test code = [id number]) 148 74-118 [facility] calcium measurement (mass/volume)2019-07-24 06:10:00* Test Item Value Reference Range Interpretation Comments Calcium Level (test code = 23615-6) 8.6 8.4-10.2 [facility]er[facility] plasma total bilirubin measurement (mass/volume)2019-07-24 06:10:00* Test Item Value Reference Range Interpretation Comments Total Bilirubin (test code = 1975-2) 0.5 0.2-1.2 [facility] CenterFluoroscopic procedure less than one hour basucmjb6392-44-14 06:10:00* Test Item Value Reference Range Interpretation Comments Aspartate Amino Transf (AST/SGOT) (test code = Aspartate Amino Transf (AST/SGOT)) 14 5-34 [facility] Hospitalerum or plasma alanine aminotransferase measurement (enzymatic activity/volume)2019-07-24 06:10:00* Test Item Value Reference Range Interpretation Comments Alanine Aminotransferase (ALT/SGPT) (test code = 1742-6) 15 0-55 [facility]er[facility] plasma protein measurement (mass/volume)2019-07-24 06:10:00* Test Item Value Reference Range Interpretation Comments Total Protein (test code = 2885-2) 6.2 6.5-8.1 [facility] Hospitaler[facility] plasma albumin measurement (mass/volume)2019-07-24 06:10:00* Test Item Value Reference Range Interpretation Comments Albumin (test code = 1751-7) 3.1 3.5-5.0 [facility] CenterPlasma globulin measurement (mass/volume) 2019-07-24 06:10:00* Test Item Value Reference Range Interpretation Comments Globulin (test code = 54015-6) 3.1 2.3-3.5 [facility]er[facility] plasma albumin/globulin mass gsvya1861-95-08 06:10:00* Test Item Value Reference Range Interpretation Comments Albumin/Globulin Ratio (test code = 1759-0) 1.0 0.8-2.0 [facility] Hospitaler[facility] or plasma alkaline phosphatase measurement (enzymatic activity/volume)2019-07-24 06:10:00* Test Item Value Reference Range Interpretation Comments Alkaline Phosphatase (test code = 6768-6) 106 40-150 [facility]er[facility] plasma amylase measurement (enzymatic activity/volume)2019-07-24 06:10:00* Test Item Value Reference Range Interpretation Comments Amylase Level (test code = 1798-8) 36 25-125 [facility]er[facility] plasma lipase measurement (enzymatic activity/volume)2019-07-24 06:10:00* Test Item Value Reference Range Interpretation Comments Lipase (test code = 3040-3) < 4 8-78 [facility]erum or plasma amylase measurement (enzymatic activity/volume)2019-07-24 06:10:00* Test Item Value Reference Range Interpretation Comments Amylase Level (test code = 1798-8) 36 25-125 [facility] Hospitalerum or plasma lipase measurement (enzymatic activity/volume)2019-07-24 06:10:00* Test Item Value Reference Range Interpretation Comments Lipase (test code = 3040-3) < 4 8-78 [facility]er[facility] or plasma amylase measurement (enzymatic activity/volume)2019-07-24 06:10:00* Test Item Value Reference Range Interpretation Comments Amylase Level (test code = 1798-8) 36 25-125 [facility]erum or plasma lipase measurement (enzymatic activity/volume)2019-07-24 06:10:00* Test Item Value Reference Range Interpretation Comments Lipase (test code = 3040-3) < 4 8-78 [facility] CenterFluoroscopic procedure less than one hour wyzfxsei0095-29-58 12:20:00* Test Item Value Reference Range Interpretation Comments Hemoglobin A1c Percent (test code = Hemoglobin A1c Percent) 8.4 4.0-7.0 [facility] CenterFluoroscopic procedure less than one hour dprwkfus2910-36-13 12:20:00* Test Item Value Reference Range Interpretation Comments Lactic Acid Level (test code = Lactic Acid Level) 0.8 0.5- 2.0 [facility] CenterFluoroscopic procedure less than one hour mzirydmw2430-88-82 12:20:00* Test Item Value Reference Range Interpretation Comments Hemoglobin A1c Percent (test code = Hemoglobin A1c Percent) 8.4 4.0-7.0 [facility] CenterFluoroscopic procedure less than one hour xdsxdnys5780-19-22 12:20:00* Test Item Value Reference Range Interpretation Comments Lactic Acid Level (test code = Lactic Acid Level) 0.8 0.5- 2.0 [facility] CenterFluoroscopic procedure less than one hour crncqgyt6371-71-83 12:20:00* Test Item Value Reference Range Interpretation Comments Hemoglobin A1c Percent (test code = Hemoglobin A1c Percent) 8.4 4.0-7.0 [facility] CenterFluoroscopic procedure less than one hour rzvdmzwg8786-96-19 12:20:00* Test Item Value Reference Range Interpretation Comments Lactic Acid Level (test code = Lactic Acid Level) 0.8 0.5- 2.0 [facility] CenterFluoroscopic procedure less than one hour saqxcbvm8012-58-46 12:20:00* Test Item Value Reference Range Interpretation Comments Hemoglobin A1c Percent (test code = Hemoglobin A1c Percent) 8.4 4.0-7.0 [facility] CenterFluoroscopic procedure less than one hour dutpcynz4158-43-31 12:20:00* Test Item Value Reference Range Interpretation Comments Lactic Acid Level (test code = Lactic Acid Level) 0.8 0.5- 2.0 [facility] CenterFluoroscopic procedure less than one hour xlkajole3314-79-85 12:20:00* Test Item Value Reference Range Interpretation Comments Hemoglobin A1c Percent (test code = Hemoglobin A1c Percent) 8.4 4.0-7.0 [facility] CenterFluoroscopic procedure less than one hour lzomrgfh7894-39-22 12:20:00* Test Item Value Reference Range Interpretation Comments Lactic Acid Level (test code = Lactic Acid Level) 0.8 0.5- 2.0 [facility] CenterFluoroscopic procedure less than one hour myfsnrsz7757-21-15 12:20:00* Test Item Value Reference Range Interpretation Comments Hemoglobin A1c Percent (test code = Hemoglobin A1c Percent) 8.4 4.0-7.0 [facility] CenterFluoroscopic procedure less than one hour upbujmus7292-69-67 12:20:00* Test Item Value Reference Range Interpretation Comments Hemoglobin A1c Percent (test code = Hemoglobin A1c Percent) 8.4 4.0-7.0 [facility] CenterCT ABD/PEL WO CLKPGJDO-KHFR9842-77-25 06:46:00 [facility] [address] [place] [address] Patient Name: BREE LINDSAY MR #: [id number] : 1975 Age/Sex: 43/M Req #: [id number] Adm Physician: Ordered by: NEIL PEREZ MD Report #: [id number] Location: [facility] Room/Bed: Procedure: [id number] HOPD/CT ABD/PEL WO CONTRAST-HOPD Exam Date: 07/23/19 [...] COPY TO: NEIL PEREZ MD Bacterial blood uenhjlo0027-12-68 06:44:00* Test Item Value Reference Range Interpretation Comments Blood Culture (test code = 600-7) STAPHYLOCOCCUS SP COAG NEG [facility] blood tuosyhc4765-19-67 06:44:00* Test Item Value Reference Range Interpretation Comments Blood Culture (test code = 600-7) STAPHYLOCOCCUS SP COAG NEG [facility] blood mpryhrv0270-19-80 06:44:00* Test Item Value Reference Range Interpretation Comments Blood Culture (test code = 600-7) STAPHYLOCOCCUS SP COAG NEG [facility] blood brmmtdl2623-09-60 06:44:00* Test Item Value Reference Range Interpretation Comments Blood Culture (test code = 600-7) STAPHYLOCOCCUS SP COAG NEG [facility] pjwydoc3202-51-85 06:44:00* Test Item Value Reference Range Interpretation Comments Blood Culture (test code = 600-7) STAPHYLOCOCCUS SP COAG NEG [facility] blood cdifvjs9836-99-81 06:44:00* Test Item Value Reference Range Interpretation Comments Blood Culture (test code = 600-7) STAPHYLOCOCCUS SP COAG NEG [facility] blood rfkalxo2027-91-64 06:44:00* Test Item Value Reference Range Interpretation Comments Blood Culture (test code = 600-7) STAPHYLOCOCCUS SP COAG NEG [facility] CenterBacteria blood xggyntw2115-79-79 06:44:00* Test Item Value Reference Range Interpretation Comments Blood Culture (test code = 600-7) STAPHYLOCOCCUS SP COAG [facility] blood qmdsgfd7988-43-52 06:44:00* Test Item Value Reference Range Interpretation Comments Blood Culture (test code = 600-7) STAPHYLOCOCCUS SP COAG [facility] blood uupqvqp7883-67-44 06:44:00* Test Item Value Reference Range Interpretation Comments Blood Culture (test code = 600-7) STAPHYLOCOCCUS SP COAG [facility] blood mrshcoa2369-15-95 06:44:00* Test Item Value Reference Range Interpretation Comments Blood Culture (test code = 600-7) STAPHYLOCOCCUS SP COAG [facility] blood poxkmyb5454-33-73 06:44:00* Test Item Value Reference Range Interpretation Comments Blood Culture (test code = 600-7) STAPHYLOCOCCUS SP COAG [facility] blood feamjkp9382-32-74 06:44:00* Test Item Value Reference Range Interpretation Comments Blood Culture (test code = 600-7) STAPHYLOCOCCUS SP COAG [facility] blood dzhupmd3173-62-77 06:44:00* Test Item Value Reference Range Interpretation Comments Blood Culture (test code = 600-7) STAPHYLOCOCCUS SP COAG [facility] - VUED2267-38-25 06:44:00 [facility] [address] [place] [address] Patient Name: BREE LINDSAY MR #: [id number] : 1975 Age/Sex: 43/M Req #: [id number] Adm Physician: Ordered by: NEIL PEREZ MD Report #: [id number] Location: [facility] Room/Bed: Procedure: [id number] HOPD/CXR 1 VEW - HOPD Exam Date: [...] 07/23/19645 COPY TO: NEIL PEREZ MD Blood amtavdp3479-54-34 06:05:00* Test Item Value Reference Range Interpretation Comments Blood Culture (test code = 85541725) NO GROWTH AFTER 5 DAYS, FINAL [facility] bddvfzm8238-21-04 06:05:00* Test Item Value Reference Range Interpretation Comments Blood Culture (test code = 79481744) NO GROWTH AFTER 5 DAYS, FINAL REPORT [facility] cxonptq4293-57-29 06:05:00* Test Item Value Reference Range Interpretation Comments Blood Culture (test code = 90782355) NO GROWTH AFTER 5 DAYS, FINAL REPORT [facility] acvamwo3095-78-16 06:05:00* Test Item Value Reference Range Interpretation Comments Blood Culture (test code = 64920449) NO GROWTH AFTER 5 DAYS, FINAL REPORT [facility] kyslagk7580-60-66 06:05:00* Test Item Value Reference Range Interpretation Comments Blood Culture (test code = 52616790) NO GROWTH AFTER 5 DAYS, FINAL REPORT [facility] qhvfeme2030-61-93 06:05:00* Test Item Value Reference Range Interpretation Comments Blood Culture (test code = 19009377) NO GROWTH AFTER 5 DAYS, FINAL REPORT [facility] CenterBedside Lihmplt4186-99-61 08:12:00* Test Item Value Reference Range Interpretation Comments Bedside Glucose (test code = 79039-6) 120 70-120 Meter ID: [id number] General Hospitalodium Level 2019-07-10 07:06:00* Test Item Value Reference Range Interpretation Comments Sodium Level (test code = 2951-2) 139 136-145 [facility] CenterPotassium Dqttr6329-14-75 07:06:00* Test Item Value Reference Range Interpretation Comments Potassium Level (test code = 2823-3) 3.3 3.5-5.1 L [facility] CenterChloride Unkdl7687-72-68 07:06:00* Test Item Value Reference Range Interpretation Comments Chloride Level (test code = 2075-0) 102 98-107 [facility] Medical CenterCarbon Dioxide Cftmv7638-50-52 07:06:00* Test Item Value Reference Range Interpretation Comments Carbon Dioxide Level (test code = 2028-9) 28 22-29 [facility] Medical CenterAnion Puj3056-01-68 07:06:00* Test Item Value Reference Range Interpretation Comments Anion Gap (test code = 54458-5) 12.3 8-16 [facility] Medical CenterBlood Urea Jfpjvvkv1515-05-41 07:06:00* Test Item Value Reference Range Interpretation Comments Blood Urea Nitrogen (test code = 3094-0) 31 7-26 H [facility] Medical CenterCreatinine2020-04-12 07:06:00* Test Item Value Reference Range Interpretation Comments Creatinine (test code = 2160-0) 1.55 0.72-1.25 H [facility] CenterBUN/Creatinine Khlqg2173-09-81 07:06:00* Test Item Value Reference Range Interpretation Comments BUN/Creatinine Ratio (test code = 3097-3) 20 6-25 [facility] Medical CenterEstimat Glomerular Filtration Rate 2019-07-10 07:06:00* Test Item Value Reference Range Interpretation Comments Estimat Glomerular Filtration Rate (test code = 152249874) 60 >60 Ranges were taken from the National Kidney Disease Education Program and the [facility] Kidney Foundation literature.Reference ranges:60 or greater: Cfhljs88-69 ( for 3 consecutive months): Chronic kidney disease 15 or less: Kidney failureCHRISTUS Santa [facility] Hospital – Medical CenterGlucose Gvopy8781-96-99 07:06:00* Test Item Value Reference Range Interpretation Comments Glucose Level (test code = SYQ5686) 92 74-118 [facility] Medical CenterCalcium Xtdhw0690-58-46 07:06:00* Test Item Value Reference Range Interpretation Comments Calcium Level (test code = 92813-2) 8.1 8.4-10.2 L [facility] Medical CenterMagnesium Vieeu3790-69-20 06:53:00* Test Item Value Reference Range Interpretation Comments Magnesium Level (test code = 97658-5) 1.8 1.3-2.1 [facility] Medical CenterWhite Blood Ckecw4544-23-54 06:24:00* Test Item Value Reference Range Interpretation Comments White Blood Count (test code = 6690-2) 8.09 4.8-10.8 [facility] Medical CenterRed Blood Ibzhx8610-37-06 06:24:00* Test Item Value Reference Range Interpretation Comments Red Blood Count (test code = 789-8) 3.66 4.3-5.7 L [facility] Medical CenterHemoglobin2020-04-12 06:24:00* Test Item Value Reference Range Interpretation Comments Hemoglobin (test code = 74319-0) 10.1 14.0-18.0 L [facility] Medical CenterHematocrit2020-04-12 06:24:00* Test Item Value Reference Range Interpretation Comments Hematocrit (test code = 4544-3) 32.4 38.2-49.6 L [facility] Medical CenterMean Corpuscular Trooia9382-33-62 06:24:00* Test Item Value Reference Range Interpretation Comments Mean Corpuscular Volume (test code = 787-2) 88.5 81-99 [facility] Medical CenterMean Corpuscular Jwoxyqjjmr9160-14-30 06:24:00* Test Item Value Reference Range Interpretation Comments Mean Corpuscular Hemoglobin (test code = 785-6) 27.6 28-32 L [facility] Medical CenterMean Corpuscular Hemoglobin Concent 2019-07-10 06:24:00* Test Item Value Reference Range Interpretation Comments Mean Corpuscular Hemoglobin Concent (test code = 786-4) 31.2 31-35 [facility] CenterRed Cell Distribution Rphpc5822-31-29 06:24:00* Test Item Value Reference Range Interpretation Comments Red Cell Distribution Width (test code = 89912-2) 13.8 11.7 -14.4 [facility] Medical CenterPlatelet Efars2956-13-88 06:24:00* Test Item Value Reference Range Interpretation Comments Platelet Count (test code = 777-3) 191 140-360 [facility] CenterNeutrophils (%) (Auto)2019-07-10 06:24:00 * Test Item Value Reference Range Interpretation Comments Neutrophils (%) (Auto) (test code = 43867-0) 61.6 38.7-80.0 [facility] Medical CenterLymphocytes (%) (Auto)2019-07-10 06:24:00 * Test Item Value Reference Range Interpretation Comments Lymphocytes (%) (Auto) (test code = 736-9) 26.7 18.0-39.1 [facility] CenterMonocytes (%) (Auto)2019-07-10 06:24:00* Test Item Value Reference Range Interpretation Comments Monocytes (%) (Auto) (test code = 5905-5) 10.3 4.4-11.3 [facility] CenterEosinophils (%) (Auto)2019-07-10 06:24:00 * Test Item Value Reference Range Interpretation Comments Eosinophils (%) (Auto) (test code = 713-8) 0.6 0.0-6.0 [facility] CenterBasophils (%) (Auto)2019-07-10 06:24:00* Test Item Value Reference Range Interpretation Comments Basophils (%) (Auto) (test code = 706-2) 0.6 0.0-1.0 [facility] Medical CenterIM GRANULOCYTES %2019-07-10 06:24:00* Test Item Value Reference Range Interpretation Comments IM GRANULOCYTES % (test code = IM GRANULOCYTES %) 0.2 0.0- 1.0 [facility] CenterNeutrophils # (Auto)2019-07-10 06:24:00* Test Item Value Reference Range Interpretation Comments Neutrophils # (Auto) (test code = 751-8) 5.0 2.1-6.9 [facility] CenterLymphocytes # (Auto)2019-07-10 06:24:00* Test Item Value Reference Range Interpretation Comments Lymphocytes # (Auto) (test code = 10989-6) 2.2 1.0-3.2 [facility] CenterMonocytes # (Auto)2019-07-10 06:24:00* Test Item Value Reference Range Interpretation Comments Monocytes # (Auto) (test code = 742-7) 0.8 0.2-0.8 [facility] CenterEosinophils # (Auto)2019-07-10 06:24:00* Test Item Value Reference Range Interpretation Comments Eosinophils # (Auto) (test code = 711-2) 0.1 0.0-0.4 [facility] CenterBasophils # (Auto)2019-07-10 06:24:00* Test Item Value Reference Range Interpretation Comments Basophils # (Auto) (test code = 704-7) 0.1 0.0-0.1 [facility] Medical CenterAbsolute Immature Granulocyte (auto 2019-07-10 06:24:00* Test Item Value Reference Range Interpretation Comments Absolute Immature Granulocyte (auto (zeenat t code = Absolute Immature Granulocyte (auto) 0.02 0-0.1 [facility]erum or plasma magnesium measurement (mass/volume)2019-07-10 05:32:00* Test Item Value Reference Range Interpretation Comments Magnesium Level (test code = 33841-2) 1.8 1.3-2.1 [facility] Hospitalerum or plasma magnesium measurement (mass/volume)2019-07-10 05:32:00* Test Item Value Reference Range Interpretation Comments Magnesium Level (test code = 71946-2) 1.8 1.3-2.1 [facility] Hospitalerum or plasma magnesium measurement (mass/volume)2019-07-10 05:32:00* Test Item Value Reference Range Interpretation Comments Magnesium Level (test code = 34847-1) 1.8 1.3-2.1 [facility] Hospitalerum or plasma magnesium measurement (mass/volume)2019-07-10 05:32:00* Test Item Value Reference Range Interpretation Comments Magnesium Level (test code = 25873-5) 1.8 1.3-2.1 [facility] Hospitalerum or plasma magnesium measurement (mass/volume)2019-07-10 05:32:00* Test Item Value Reference Range Interpretation Comments Magnesium Level (test code = 39816-3) 1.8 1.3-2.1 [facility]erum or plasma magnesium measurement (mass/volume)2019-07-10 05:32:00* Test Item Value Reference Range Interpretation Comments Magnesium Level (test code = 87314-0) 1.8 1.3-2.1 [facility] Hospitalerum or plasma magnesium measurement (mass/volume)2019-07-10 05:32:00* Test Item Value Reference Range Interpretation Comments Magnesium Level (test code = 78261-3) 1.8 1.3-2.1 [facility]erum or plasma magnesium measurement (mass/volume)2019-07-10 05:32:00* Test Item Value Reference Range Interpretation Comments Magnesium Level (test code = 82391-5) 1.8 1.3-2.1 [facility]erum or plasma magnesium measurement (mass/volume)2019-07-10 05:32:00* Test Item Value Reference Range Interpretation Comments Magnesium Level (test code = 33860-9) 1.8 1.3-2.1 [facility]erum or plasma magnesium measurement (mass/volume)2019-07-10 05:32:00* Test Item Value Reference Range Interpretation Comments Magnesium Level (test code = 87747-8) 1.8 1.3-2.1 [facility]erum or plasma magnesium measurement (mass/volume)2019-07-10 05:32:00* Test Item Value Reference Range Interpretation Comments Magnesium Level (test code = 50023-4) 1.8 1.3-2.1 [facility] Hospitalerum or plasma magnesium measurement (mass/volume)2019-07-10 05:32:00* Test Item Value Reference Range Interpretation Comments Magnesium Level (test code = 40494-1) 1.8 1.3-2.1 [facility]erum or plasma magnesium measurement (mass/volume)2019-07-10 05:32:00* Test Item Value Reference Range Interpretation Comments Magnesium Level (test code = 24241-7) 1.8 1.3-2.1 [facility]erum or plasma magnesium measurement (mass/volume)2019-07-10 05:32:00* Test Item Value Reference Range Interpretation Comments Magnesium Level (test code = 36390-2) 1.8 1.3-2.1 [facility] CenterGLUBED2020-02-10 08:55:00* Test Item Value Reference Range Interpretation Comments GLUBED (test code = GLUBED) 122 mg/dL 74-106 H Performed by certified router operator pin at [facility] BHBDWJ2898-90-05 08:43:00* Test Item Value Reference Range Interpretation Comments GLUBED (test code = GLUBED) 140 mg/dL 74-106 H Performed by certified router operator pin at [facility] - XR SHOULDER 1 V [id number] 13:41:00 FAX: Jg Astudillo MD [phone] [place]: St: [facility] FAX: Riley Zavala DO [phone] Name: BREE LINDSAY [facility] [place] : 1975 Age/S: 43/M [address] [place] [address] Blvd Unit #: [id number] Loc: [place] [address] Phys: Jg Astudillo MD Acct: [id number] Dis Date: Status: REG CLI PHONE #: [phone] Exam Date: 03/02/2019 1333 FAX #: [phone] Reason: PICC PLACEMENT EXAMS: CPT CODE: [id number] XR SHOULDER 1 [place] [address] 1 VIEW LEFT SHOULDER HISTORY: PICC line pl acement.. Left upper extremity PICC line present. Catheter tip pr ojects over the level of the inferior 3rd of the SVC. END IMPRESSION SL: [id number] at 1341 Reported and sig lizette by: Yusuf Burgos M.D. CC: Jg Astudillo MD; Zak Beckman DO Technologist: RT Rashida(Kelly) Trnscrd Date/Time/By: 03/02/2019 (1569) : By: Jaclyn Orig Print D/T: S: 03/02/2019 (2619) PAGE 1 Signed Report [id number] 08:06:00* Test Item Value Reference Range Interpretation Comments GLUBED (test code = GLUBED) 224 mg/dL 74-106 H Performed by certified router operator pin at [facility] FWCUQZ9726-88-73 22:57:00* Test Item Value Reference Range Interpretation Comments GLUBED (test code = GLUBED) 62 mg/dL 74-106 L Performed by certified router operator pin at [facility] XMJTQX2586-82-60 18:14:00* Test Item Value Reference Range Interpretation Comments GLUBED (test code = GLUBED) 158 mg/dL 74-106 H Performed by certified router operator pin at [facility] XWJYKO9891-16-13 11:43:00* Test Item Value Reference Range Interpretation Comments GLUBED (test code = GLUBED) 123 mg/dL 74-106 H Performed by certified router operator pin at [facility] BASIC METABOLIC KRTXH0782-35-75 11:04:00* Test Item Value Reference Range Interpretation [...] CA) 8.5 mg/dL 8.5-10.1 N BASIC METABOLIC WGNQU6322-11-69 10:55:00* Test Item Value Reference Range Interpretation [...] code = CA) mg/dL 8.5-10.1 CBC W/AUTO JNOL1111-60-60 10:13:00* Test Item Value Reference Range Interpretation [...] code = NRBC#) 0.00 K/mm3 0.0-0.1 N SVYUVY3032-19-81 08:19:00* Test Item Value Reference Range Interpretation Comments GLUBED (test code = GLUBED) 81 mg/dL 74-106 N Performed by certified router operator pin at [facility] YRBZLO8223-74-19 22:30:00* Test Item Value Reference Range Interpretation Comments GLUBED (test code = GLUBED) 243 mg/dL 74-106 H Performed by certified router operator pin at [facility] FOPGPJ9767-85-40 17:17:00* Test Item Value Reference Range Interpretation Comments GLUBED (test code = GLUBED) 91 mg/dL 74-106 N Performed by certified router operator pin at [facility] BLOOD UREA [id number] 13:49:00* Test Item Value Reference Range Interpretation Comments BLOOD UREA NITROGEN (test code = BUN) 8 mg/dL 7-18 N 2 PHELBS GONE UP AND TRIED TO DRAW BLOOD PT SAID COME BACKINFORMED PAIGE Da Silva [facility] 02/19/19 1037 [id number] 13:49:00* Test Item Value Reference Range Interpretation Comments CREATININE (test code = CREAT) 0.90 mg/dL 0.7-1.3 N 2 PHELBS GONE UP AND TRIED TO DRAW BLOOD PT SAID COME BACKINFORMED PAIGE Da Silva [facility] 02/19/19 1037 CBC W/AUTO [id number] 13:02:00* Test Item Value Reference Range Interpretation [...] TO COME BACK LATER NOTIFIED PAIGE LUCERO.KP211/23/19 [id number] 11:50:00* Test Item Value Reference Range Interpretation Comments GLUBED (test code = GLUBED) 147 mg/dL 74-106 H Performed by certified router operator pin at [facility] [id number] 10:37:00* Test Item Value Reference Range Interpretation Comments GLUBED (test code = GLUBED) 97 mg/dL 74-106 N Performed by certified router operator pin at [facility] [id number] 21:43:00* Test Item Value Reference Range Interpretation Comments GLUBED (test code = GLUBED) 162 mg/dL 74-106 H Performed by certified router operator pin at [facility] [id number] 16:06:00* Test Item Value Reference Range Interpretation Comments GLUBED (test code = GLUBED) 98 mg/dL 74-106 N Performed by certified router operator pin at [facility] - XR CHEST 1 [id number] 14:36:00 FAX: Olegario Diaz MD [phone] [place]: St: ADM FAX: Iris Liao [phone] FAX: Riley Zavala DO [phone] Name: BREE LINDSAY [facility] : 1975 Age/S: 43/M [address] [facility] Unit #: [id number] Loc: V.[address] [place] [address] Phys: Iris Liao NP Acct: [id number] Dis Date: Status: ADM IN ONE #: [phone] Exam Date: 02/18/2019 1339 FAX #: [phone] Reason: PICC TIP CONFIRMATION EXAMS: CPT CODE: [id number] XR CHEST 1 V 86199 REASON FOR EXAM: PICC TIP CONFIRMATION Exam [...] new finding from the prior exam. Location: [facility] Electronically Signed by Mulugeta Espinoza MD on at 1436 Reported and signed by: Mulugeta Espinoza MD CC: Olegario Diaz MD; Iris Liao NP; Riley Beckman DO Technologist: Ngozi LYON(R); Lucie Martinez(R) Trnscrd Date/Time/By: 01/29 (1436) : By: [email or web address] Orig Print D/T: S: 02/18/2019 (1437) PAGE 1 Signed Report [id number] 12:20:00* Test Item Value Reference Range Interpretation Comments GLUBED (test code = GLUBED) 141 mg/dL 74-106 H Performed by certified router operator pin at [facility] [id number] 07:15:00* Test Item Value Reference Range Interpretation Comments GLUBED (test code = GLUBED) 129 mg/dL 74-106 H Performed by certified router operator pin at [facility] [id number] 00:21:00* Test Item Value Reference Range Interpretation Comments GLUBED (test code = GLUBED) 166 mg/dL 74-106 H Performed by certified router operator pin at [facility] [id number] 20:50:00* Test Item Value Reference Range Interpretation Comments GLUBED (test code = GLUBED) 194 mg/dL 74-106 H Performed by certified router operator pin at [facility] [id number] 18:19:00* Test Item Value Reference Range Interpretation Comments VANCOMYCIN (test code = VANCO) 25.9 UG/ML 5.0-45.0 N [id number] 16:41:00* Test Item Value Reference Range Interpretation Comments GLUBED (test code = GLUBED) 223 mg/dL 74-106 H Performed by certified router operator pin at [facility] [id number] 13:22:00* Test Item Value Reference Range Interpretation Comments GLUBED (test code = GLUBED) 95 mg/dL 74-106 N Performed by certified router operator pin at [facility] [id number] 13:22:00* Test Item Value Reference Range Interpretation Comments GLUBED (test code = GLUBED) 61 mg/dL 74-106 L Performed by certified router operator pin at [facility] [id number] 13:22:00* Test Item Value Reference Range Interpretation Comments GLUBED (test code = GLUBED) 32 mg/dL 74-106 LL Test performed as P.O.C. by nursing staff.Performed by certified router operator pin at [facility] [id number] 13:22:00* Test Item Value Reference Range Interpretation Comments GLUBED (test code = GLUBED) 28 mg/dL 74-106 LL Test performed as P.O.C. by nursing staff.[facility] Not[facility]~ [id number] 11:50:00* Test Item Value Reference Range Interpretation Comments GLUBED (test code = GLUBED) 104 mg/dL 74-106 N Performed by certified router operator pin at [facility] CBC W/MANUAL [id number] 09:27:00* Test Item Value Reference Range Interpretation [...] code = IMMAT) 0 % 0-0 N [id number] 07:51:00* Test Item Value Reference Range Interpretation Comments GLUBED (test code = GLUBED) 244 mg/dL 74-106 H Performed by certified router operator pin at [facility] BASIC METABOLIC [id number] 07:23:00* Test Item Value Reference Range Interpretation [...] CA) 7.9 mg/dL 8.5-10.1 L BASIC METABOLIC [id number] 07:13:00* Test Item Value Reference Range Interpretation [...] code = CA) mg/dL 8.5-10.1 CBC W/MANUAL [id number] 07:10:00* Test Item Value Reference Range Interpretation [...] MORPHOLOGY (test code = PLTMORPH) CBC W/MANUAL [id number] 07:10:00* Test Item Value Reference Range Interpretation [...] MORPHOLOGY (test code = PLTMORPH) CBC W/MANUAL [id number] 07:10:00* Test Item Value Reference Range Interpretation [...] MORPHOLOGY (test code = PLTMORPH) CBC W/MANUAL [id number] 07:09:00* Test Item Value Reference Range Interpretation [...] MORPHOLOGY (test code = PLTMORPH) CBC W/MANUAL [id number] 07:09:00* Test Item Value Reference Range Interpretation [...] MORPHOLOGY (test code = PLTMORPH) SED RATE [id number] 21:42:00* Test Item Value Reference Range Interpretation Comments SED RATE WESTERGREN (test code = SEDW) 76 mm/hr 0-15 H SED [id number] 21:42:00* Test Item Value Reference Range Interpretation Comments SED RATE (test code = SEDW) 76 mm/hr 0-15 H WINTROBE METHOD: NORMAL RANGE FOR MEN: 0-9 MM/HR WOMAN: 0-20 MM/HR [id number] 20:54:00* Test Item Value Reference Range Interpretation Comments GLUBED (test code = GLUBED) 345 mg/dL 74-106 H Performed by certified router operator pin at [facility] [id number] 16:36:00* Test Item Value Reference Range Interpretation Comments GLUBED (test code = GLUBED) 37 mg/dL 74-106 LL Performed by certified router operator pin at [facility] [id number] 16:30:00* Test Item Value Reference Range Interpretation Comments GLUBED (test code = GLUBED) 94 mg/dL 74-106 N Performed by certified router operator pin at [facility] [id number] 12:04:00* Test Item Value Reference Range Interpretation Comments GLUBED (test code = GLUBED) 236 mg/dL 74-106 H Performed by certified router operator pin at [facility] CBC W/MANUAL [id number] 08:49:00* Test Item Value Reference Range Interpretation [...] IMMAT) 0 % 0-0 N BASIC METABOLIC [id number] 08:29:00* Test Item Value Reference Range Interpretation [...] CA) 7.9 mg/dL 8.5-10.1 L CBC W/MANUAL [id number] 08:09:00* Test Item Value Reference Range Interpretation [...] MORPHOLOGY (test code = PLTMORPH) CBC W/MANUAL [id number] 08:09:00* Test Item Value Reference Range Interpretation [...] MORPHOLOGY (test code = PLTMORPH) CBC W/MANUAL [id number] 08:09:00* Test Item Value Reference Range Interpretation [...] MORPHOLOGY (test code = PLTMORPH) CBC W/MANUAL [id number] 08:09:00* Test Item Value Reference Range Interpretation [...] MORPHOLOGY (test code = PLTMORPH) CBC W/MANUAL [id number] 08:09:00* Test Item Value Reference Range Interpretation [...] PLTEST) PLATELET MORPHOLOGY (test code = PLTMORPH) [id number] 07:33:00* Test Item Value Reference Range Interpretation Comments GLUBED (test code = GLUBED) 315 mg/dL 74-106 H Performed by certified router operator pin at [facility] [id number] 19:56:00* Test Item Value Reference Range Interpretation Comments GLUBED (test code = GLUBED) 90 mg/dL 74-106 N Performed by certified router operator pin at [facility] [id number] 19:07:00* Test Item Value Reference Range Interpretation Comments GLUBED (test code = GLUBED) 107 mg/dL 74-106 H Performed by certified router operator pin at [facility] [id number] 19:07:00* Test Item Value Reference Range Interpretation Comments GLUBED (test code = GLUBED) 49 mg/dL 74-106 LL [facility] certified router operator pin [facility]~ [id number] 17:50:00* Test Item Value Reference Range Interpretation Comments POTASSIUM (test code = K) 3.0 mmol/L 3.5-5.1 L RE SULT VERIFIED BY REPEAT ANALYSIS [id number] 17:08:00* Test Item Value Reference Range Interpretation Comments GLUBED (test code = GLUBED) 66 mg/dL 74-106 L Performed by certified router operator pin at [facility] [id number] 16:57:00* Test Item Value Reference Range Interpretation Comments GLUBED (test code = GLUBED) 76 mg/dL 74-106 N Performed by certified router operator pin at [facility] [id number] 13:11:00* Test Item Value Reference Range Interpretation Comments POTASSIUM (test code = K) 5.2 mmol/L 3.5-5.1 H [id number] 11:49:00* Test Item Value Reference Range Interpretation Comments GLUBED (test code = GLUBED) 81 mg/dL 74-106 N Performed by certified router operator pin at [facility] [id number] 09:39:00* Test Item Value Reference Range Interpretation Comments GLUBED (test code = GLUBED) 78 mg/dL 74-106 N Performed by certified router operator pin at [facility] - MRI LOW EXT W/O CONT [id number] 09:36:00 FAX: Olegario Diaz MD [phone] [place]: St: ADM FAX: Heavenly Kerr DPM [phone] FAX: Riley Zavala DO [phone] Name: BREE LINDSAY [facility] : 1975 Age/S: 43/M [address] [facility] Unit #: [id number] Loc: V.[address] [place] [address] Phys: Heavenly Null DPM Acct: [id number] Dis Date: Status: ADM IN [facility] #: [phone] Exam Date: 02/15/2019 0859 FAX #: [phone] Reason: cellulitis EXAMS: CPT CODE: [id number] MR [place] L[place] EXT W/[place] [address] HISTORY: Cellu litis TECHNIQUE: Sagittal T1, sagittal [...] DPM; Riley Beckman DO Technologist: Lisy Martinez( Kelly)(MR) Trnscrd Date/Time/By: 02/15/2019 (0936) : By: [email or web address] Orig Print D/T: S: 02/15/2019 (0939) PAGE 1 Signed Report GLUBED 2019-02-15 07:22:00* Test Item Value Reference Range Interpretation Comments GLUBED (test code = GLUBED) 57 mg/dL 74-106 L Performed by certified router operator pin at [facility] BASIC METABOLIC [id number] 05:15:00* Test Item Value Reference Range Interpretation Comments SODIUM (test code = NA) 136 mmol/L 136-145 N POTASSIUM (test code = K) 2.7 mmol/L 3.5-5.1 LL Re sults called to [id number] by VERIK 02/15/19 0515Critical results verified and [...] CA) 8.3 mg/dL 8.5-10.1 L C REACTIVE [id number] 04:21:00* Test Item Value Reference Range Interpretation Comments C REACTIVE PROTEIN (test code = CRP) 27.10 mg/dL 0-0.3 H CBC W/MANUAL [id number] 04:05:00* Test Item Value Reference Range Interpretation [...] IMMAT) 0 % 0-0 N CBC W/MANUAL [id number] 03:30:00* Test Item Value Reference Range Interpretation [...] PLTEST) PLATELET MORPHOLOGY (test code = PLTMORPH) [id number] 20:26:00* Test Item Value Reference Range Interpretation Comments GLUBED (test code = GLUBED) 151 mg/dL 74-106 H Performed by certified router operator pin at [facility] [id number] 17:12:00* Test Item Value Reference Range Interpretation Comments GLUBED (test code = GLUBED) 124 mg/dL 74-106 H Performed by certified router operator pin at [facility] [id number] 17:07:00* Test Item Value Reference Range Interpretation Comments GLUBED (test code = GLUBED) 81 mg/dL 74-106 N Performed by certified router operator pin at [facility] [id number] 12:13:00* Test Item Value Reference Range Interpretation Comments GLUBED (test code = GLUBED) 95 mg/dL 74-106 N Performed by certified router operator pin at [facility] CBC W/MANUAL [id number] 08:15:00* Test Item Value Reference Range Interpretation [...] code = IMMAT) 0 % 0-0 N [id number] 07:18:00* Test Item Value Reference Range Interpretation Comments GLUBED (test code = GLUBED) 195 mg/dL 74-106 H Performed by certified router operator pin at [facility] BASIC METABOLIC [id number] 07:16:00* Test Item Value Reference Range Interpretation [...] code = CA) 8.4 mg/dL 8.5-10.1 L [id number] 07:16:00* Test Item Value Reference Range Interpretation Comments MAGNESIUM (test code = MAG) 1.7 mg/dL 1.8-2.4 L CBC W/MANUAL [id number] 06:58:00* Test Item Value Reference Range Interpretation [...] MORPHOLOGY (test code = PLTMORPH) CBC W/MANUAL [id number] 06:58:00* Test Item Value Reference Range Interpretation [...] MORPHOLOGY (test code = PLTMORPH) CBC W/MANUAL [id number] 06:58:00* Test Item Value Reference Range Interpretation [...] MORPHOLOGY (test code = PLTMORPH) CBC W/MANUAL [id number] 06:58:00* Test Item Value Reference Range Interpretation [...] MORPHOLOGY (test code = PLTMORPH) CBC W/MANUAL [id number] 06:58:00* Test Item Value Reference Range Interpretation [...] MORPHOLOGY (test code = PLTMORPH) BASIC METABOLIC [id number] 06:56:00* Test Item Value Reference Range Interpretation [...] CALCIUM (test code = CA) mg/dL 8.5-10.1 [id number] 06:56:00* Test Item Value Reference Range Interpretation Comments MAGNESIUM (test code = MAG) mg/dL 1.8-2.4 [id number] 20:42:00* Test Item Value Reference Range Interpretation Comments GLUBED (test code = GLUBED) 261 mg/dL 74-106 H Performed by certified router operator pin at [facility] CBC W/MANUAL [id number] 10:55:00* Test Item Value Reference Range Interpretation [...] MORPHOLOGY (test code = PLTMORPH) NORMAL URINALYSIS [id number] 10:38:00* Test Item Value Reference Range Interpretation [...] Clean Catch- XR FOOT 3 + V [id number] 10:33:00 Name: BREE LINDSAY [facility] : 1975 Age/S:43 /M [address] [facility] Unit#:[id number] Loc: [place] [address] Phys: Chandan Cage MD Dis Date: PHONE #: [phone] Status: REG ER FAX #: [phone] Exam Date: 02/13/2019 Re ason: left foot swelling EXAMS: CPT CODE: [id number] XR FOOT 3 + [place] [address] CLINICAL HISTORY: left foot swelling TECHNIQUE: AP, [...] Riley Beckman DO Technologist: Stone Sadler RT(R)(CT) Trnscrpt Data: 02/13/2019 (1033) t.[email or web address].[email or web address] Orig Print D/T: S: 02/13/2019 (1743) PAGE 1 Signed Report LACTIC [id number] 10:28:00* Test Item Value Reference Range Interpretation Comments LACTIC ACID (test code = LACT) 1.6 MMOL/L 0.4-1.9 N BASIC METABOLIC [id number] 10:28:00* Test Item Value Reference Range Interpretation [...] CA) 8.7 mg/dL 8.4-10.2 N HEPATIC FUNCTION [id number] 10:28:00* Test Item Value Reference Range Interpretation [...] code = ALKP) 120 U/L 38-126 N [id number] 10:28:00* Test Item Value Reference Range Interpretation Comments TROPONIN-I (test code = TROPI) <0.015 ng/mL 0.00-0.056 N URINALYSIS [id number] 10:20:00* Test Item Value Reference Range Interpretation [...] HPF NONE Urine Source? Clean CatchBASIC METABOLIC [id number] 10:19:00* Test Item Value Reference Range Interpretation [...] CA) 8.7 mg/dL 8.4-10.2 N HEPATIC FUNCTION [id number] 10:19:00* Test Item Value Reference Range Interpretation [...] TOTAL (test code = ALKP) IUnit/L 45-117 [id number] 10:19:00* Test Item Value Reference Range Interpretation Comments TROPONIN-I (test code = TROPI) ng/mL 0-0.045 CBC W/MANUAL [id number] 10:13:00* Test Item Value Reference Range Interpretation [...] MORPHOLOGY (test code = PLTMORPH) CBC W/MANUAL [id number] 10:02:00* Test Item Value Reference Range Interpretation [...] MORPHOLOGY (test code = PLTMORPH) CBC W/MANUAL [id number] 10:02:00* Test Item Value Reference Range Interpretation [...] MORPHOLOGY (test code = PLTMORPH) CBC W/MANUAL [id number] 10:02:00* Test Item Value Reference Range Interpretation [...] MORPHOLOGY (test code = PLTMORPH) CBC W/MANUAL [id number] 10:02:00* Test Item Value Reference Range Interpretation [...] code = PLTMORPH) - XR CHEST 1 [id number] 09:56:00 Name: BREE LINDSAY [facility] : 1975 Age/S:43 /M [address] [facility] Unit#:[id number] Loc: [place] [address] Phys: Tracy Cage MD Dis Date: PHONE #: [phone] Status: REG ER FAX #: [phone] Exam Date: 02/13/2019 Reason: CODE SEPSIS EXAMS: CPT CODE: [id number] XR CHEST 1 V 99188 REASON FOR EXAM: CODE SEPSIS Exam Order [...] cholecystectomy. IMPRESSION: No acute cardiopulmonary process. Location: [facility] Elect ronically Signed by Mulugeta Espinoza MD on 02/13/2019 at 0956 Reported and signed by: Mulugeta Espinoza MD CC: Tracy Cage MD; Keeley Beckman DO Technologist: Stone Sadler RT(R)(CT) Trnscrpt Data: 02/13/2019 (0956) t.SDR.[email or web address] Orig Print D/T: S: 02/13/2019 (0959) PAGE 1 Signed Report [id number] 16:17:00* Test Item Value Reference Range Interpretation Comments GLUBED (test code = GLUBED) 187 mg/dL 74-106 H Performed by certified router operator pin at [facility] [id number] 11:57:00* Test Item Value Reference Range Interpretation Comments GLUBED (test code = GLUBED) 147 mg/dL 74-106 H Performed by certified router operator pin at [facility] [id number] 07:34:00* Test Item Value Reference Range Interpretation Comments GLUBED (test code = GLUBED) 110 mg/dL 74-106 H Performed by certified router operator pin at [facility] CBC W/MANUAL [id number] 05:59:00* Test Item Value Reference Range Interpretation [...] IMMAT) 0 % 0-0 N BASIC METABOLIC [id number] 05:25:00* Test Item Value Reference Range Interpretation Comments SODIUM (test code = NA) 138 mmol/L 136-145 N POTASSIUM (test code = K) 2.7 mmol/L 3.5-5.1 LL Re sults called to [id number] by [place] 02/12/19 0525Critical results verified and [...] CA) 8.4 mg/dL 8.5-10.1 L CBC W/MANUAL [id number] 05:04:00* Test Item Value Reference Range Interpretation [...] MORPHOLOGY (test code = PLTMORPH) CBC W/MANUAL [id number] 05:04:00* Test Item Value Reference Range Interpretation [...] MORPHOLOGY (test code = PLTMORPH) CBC W/MANUAL [id number] 05:04:00* Test Item Value Reference Range Interpretation [...] MORPHOLOGY (test code = PLTMORPH) CBC W/MANUAL [id number] 05:04:00* Test Item Value Reference Range Interpretation [...] MORPHOLOGY (test code = PLTMORPH) CBC W/MANUAL [id number] 05:04:00* Test Item Value Reference Range Interpretation [...] interpreted taking into account the patients history. [id number] 19:42:00* Test Item Value Reference Range Interpretation Comments GLUBED (test code = GLUBED) 131 mg/dL 74-106 H Performed by certified router operator pin at [facility] LACTIC [id number] 19:38:00* Test Item Value Reference Range Interpretation Comments LACTIC ACID (test code = LACT) 0.7 mmol/L 0.4-1.9 N [id number] 18:44:00* Test Item Value Reference Range Interpretation Comments GLUBED (test code = GLUBED) 129 mg/dL 74-106 H Performed by certified router operator pin at [facility] [id number] 16:34:00* Test Item Value Reference Range Interpretation Comments GLUBED (test code = GLUBED) 66 mg/dL 74-106 L Performed by certified router operator pin at [facility] [id number] 12:07:00* Test Item Value Reference Range Interpretation Comments GLUBED (test code = GLUBED) 285 mg/dL 74-106 H Performed by certified router operator pin at [facility] - XR CHEST 1 [id number] 08:53:00 FAX: Faith Cook MD [phone] [place]: B St: ADM FAX: Raphale BeckmanMineshFaustoRubén DO [phone] Name: BREE LINDSAY [facility] : 1975 Age/S: 43/M [address] [facility] Unit #: [id number] Loc: V.[facility] [place] [address] Phys: Faith Roy MD Acct: [id number] Dis Date: Status: ADM IN PHONE #: [phone] Exam Date: 02/11/2019 0830 FAX #: [phone] Reason: Leukocytosis EXAMS: CPT CODE: [id number] XR CHEST 1 V 04496 HISTORY: Leukocytosis. COMPARISON: January 12, 2018. Location: [facility]. No acute infiltrates, effusion or congestion is noted. Mild cardiomegaly. IMPRESSION: No acute infiltrates, effusion or congestion. at 0853 Reported and signed by: Alexandr Pacheco M.D. CC: Faith Roy MD; Riley Beckman DO Technologist: BERNABE NEWELL JR; Юлия Diez Trnscrd Date/Time/By: 02/11/2019 (0853) : By: [email or web address] Orig Print D/T: S: 02/11/2019 (0856) PAGE 1 Signed Report [id number] 07:52:00* Test Item Value Reference Range Interpretation Comments GLUBED (test code = GLUBED) 293 mg/dL 74-106 H Performed by certified router operator pin at [facility] CBC W/MANUAL [id number] 06:45:00* Test Item Value Reference Range Interpretation [...] IMMAT) 0 % 0-0 N BASIC METABOLIC [id number] 06:37:00* Test Item Value Reference Range Interpretation [...] CA) 8.6 mg/dL 8.5-10.1 N BASIC METABOLIC [id number] 06:31:00* Test Item Value Reference Range Interpretation [...] code = CA) mg/dL 8.5-10.1 CBC W/MANUAL [id number] 06:18:00* Test Item Value Reference Range Interpretation [...] MORPHOLOGY (test code = PLTMORPH) CBC W/MANUAL [id number] 06:18:00* Test Item Value Reference Range Interpretation [...] MORPHOLOGY (test code = PLTMORPH) CBC W/MANUAL [id number] 06:18:00* Test Item Value Reference Range Interpretation [...] MORPHOLOGY (test code = PLTMORPH) CBC W/MANUAL [id number] 06:18:00* Test Item Value Reference Range Interpretation [...] MORPHOLOGY (test code = PLTMORPH) CBC W/MANUAL [id number] 06:18:00* Test Item Value Reference Range Interpretation [...] PLATELET MORPHOLOGY (test code = PLTMORPH) URINALYSIS [id number] 02:01:00* Test Item Value Reference Range Interpretation [...] BE COLLECTED BY NURSEDRUGS OF ABUSE SCREEN [id number] 02:01:00* Test Item Value Reference Range Interpretation [...] Source? VoidedSAMPLE TO BE COLLECTED BY NURSEURINALYSIS [id number] 01:45:00* Test Item Value Reference Range Interpretation [...] BE COLLECTED BY NURSEDRUGS OF ABUSE SCREEN [id number] 01:45:00* Test Item Value Reference Range Interpretation [...] 2143Urine Source? VoidedSAMPLE TO BE COLLECTED BY [id number] 23:31:00* Test Item Value Reference Range Interpretation Comments GLUBED (test code = GLUBED) 223 mg/dL 74-106 H Performed by certified router operator pin at [facility] [id number] 18:09:00* Test Item Value Reference Range Interpretation Comments GLUBED (test code = GLUBED) 201 mg/dL 74-106 H Performed by certified router operator pin at [facility] [id number] 11:27:00* Test Item Value Reference Range Interpretation Comments GLUBED (test code = GLUBED) 291 mg/dL 74-106 H Performed by certified router operator pin at [facility] [id number] 08:25:00* Test Item Value Reference Range Interpretation Comments GLUBED (test code = GLUBED) 288 mg/dL 74-106 H Performed by certified router operator pin at [facility] - XR ABDOMEN AP 1 [id number] 08:01:00 FAX: Bobby Self MD [place]: B St: ADM FAX: Riley Zavala DO [phone] Name: BREE LINDSAY [facility] : 1975 Age/S: 43/M [address] [facility] Unit #: [id number] Loc: V.3017 [place] [address] Phys: Bobby Self MD Acct: [id number] Dis Date: Status: ADM IN PHONE #: [phone] Exam Date: 02/10/2019 0805 FAX #: [phone] Reason: abdominal pain nausea and vomiting EXAMS: CPT CODE: [id number] XR ABDOMEN AP 1 V 27354 HISTORY: abdominal pain nausea and vomiting TECHNIQUE: [...] DO Technologist: RT LATA(Kelly) Trnscrd Date/Time/By: 02/10/2019 (800) : By: [email or web address] Orig Print D/T: S: [...] into account the patients history. BASIC METABOLIC [id number] 00:47:00* Test Item Value Reference Range Interpretation [...] CA) 9.1 mg/dL 8.5-10.1 N HEPATIC FUNCTION [id number] 00:47:00* Test Item Value Reference Range Interpretation [...] reference range due to change in reagent. [id number] 00:47:00* Test Item Value Reference Range Interpretation Comments LIPASE (test code = LIP) < 10 U/L 73.0-393.0 L CBC W/O [id number] 00:11:00* Test Item Value Reference Range Interpretation [...] code = MPV) 9.7 fL 6.7-11.0 N [id number] 07:24:00* Test Item Value Reference Range Interpretation Comments GLUBED (test code = GLUBED) 269 mg/dL 74-106 H Performed by certified router operator pin at [facility] [id number] 20:19:00* Test Item Value Reference Range Interpretation Comments GLUBED (test code = GLUBED) 199 mg/dL 74-106 H Performed by certified router operator pin at [facility] [id number] 16:56:00* Test Item Value Reference Range Interpretation Comments GLUBED (test code = GLUBED) 153 mg/dL 74-106 H Performed by certified router operator pin at [facility] [id number] 11:42:00* Test Item Value Reference Range Interpretation Comments GLUBED (test code = GLUBED) 231 mg/dL 74-106 H Performed by certified router operator pin at [facility] [id number] 08:17:00* Test Item Value Reference Range Interpretation Comments GLUBED (test code = GLUBED) 160 mg/dL 74-106 H Performed by certified router operator pin at [facility] CBC W/AUTO [id number] 06:43:00* Test Item Value Reference Range Interpretation [...] NRBC#) 0.00 K/mm3 0.0-0.1 N BASIC METABOLIC [id number] 06:43:00* Test Item Value Reference Range Interpretation [...] CA) 8.8 mg/dL 8.5-10.1 N BASIC METABOLIC [id number] 06:26:00* Test Item Value Reference Range Interpretation [...] (test code = CA) mg/dL 8.5-10.1 URINALYSIS [id number] 23:07:00* Test Item Value Reference Range Interpretation [...] Urine Source? Clean CatchDRUGS OF ABUSE SCREEN [id number] 23:07:00* Test Item Value Reference Range Interpretation [...] NEGATIVE <300 ng/mL Urine Source? Clean CatchURINALYSIS [id number] 22:44:00* Test Item Value Reference Range Interpretation [...] Urine Source? Clean CatchDRUGS OF ABUSE SCREEN [id number] 22:44:00* Test Item Value Reference Range Interpretation [...] <300 ng/mL Urine Source? Clean CatchBASIC METABOLIC [id number] 18:12:00* Test Item Value Reference Range Interpretation [...] CA) 10.0 mg/dL 8.5-10.1 N HEPATIC FUNCTION [id number] 18:12:00* Test Item Value Reference Range Interpretation [...] reference range due to change in reagent. [id number] 18:12:00* Test Item Value Reference Range Interpretation Comments LIPASE (test code = LIP) < 10 U/L 73.0-393.0 L BASIC METABOLIC [id number] 18:04:00* Test Item Value Reference Range Interpretation [...] code = CA) mg/dL 8.5-10.1 HEPATIC FUNCTION [id number] 18:04:00* Test Item Value Reference Range Interpretation [...] TOTAL (test code = ALKP) IUnit/L 45-117 [id number] 18:04:00* Test Item Value Reference Range Interpretation Comments LIPASE (test code = LIP) U/L 73.0-393.0 CBC W/O [id number] 18:00:00* Test Item Value Reference Range Interpretation [...] code = MPV) 10.1 fL 6.7-11.0 N [id number] 17:11:00* Test Item Value Reference Range Interpretation Comments GLUBED (test code = GLUBED) 108 mg/dL 74-106 H Performed by certified router operator pin at [facility] [id number] 14:49:00 RUN DATE: 12/21/18 [facility] PAGE 1 RUN TIME: 1449 Specimen Inqui ry RUN USER: INTERFACE PATIENT: BREE LINDSAY ACCT #: [id number] LOC: JasonMEHDI U #: [id number] AGE/SX: 43/M ROOM: [facility] RE12/16/18REG DR: Olegario Diaz MD : 75 BED: A DIS: 12/19/18 STATUS: DIS IN TLOC: SPEC #: [id number] RECD: 12/20/18 STATUS: SHAHRAM REQ #: [id number] HUY: 12/18/18[facility] DR: Sav Coffey MD ENTERED: 12/20/18 SP TYPE: NIKITA TIM DR: Levi Natarajan i, MD [facility] DOORDERED: GROSS COPIES TO: Levi Lakhani MD [address] [place] [address] Sav Coffey MD [address] [place] [address] Riley Beckman [address] [place] [address] MARKERS: ABNORMAL TISSUE, GALLBL ADDER PROCEDURES: LINDA (12/21/18-1158) TISSUES: GALLBLADDER, NOS CLINICAL HISTORY COLLECTION DATE: 12/18/18 CHOLECYSTITIS FIN AL DIAGNOSIS Gallbladder, cholecystectomy: PATCHY MILD CHRONIC ACALCUL OUS CHOLECYSTITIS NEGATIVE FOR MALIGNANCY RRB/sm A [address]54[address] CONTINUED ON NEXT PAGE RUN DATE : 12/21/18 [facility] PAGE 2 RUN TIME: 1449 Specimen Inquiry RUN USER: INTERFACE SPEC #: [id number] PATIENT: BREE LINDSAY #V [id number] (Continued) MACROSCOPIC The specimen is r eceived [...] thickness. No foc al lesions are identified. Lab Engineer tissue is submitted in a single violeta sette. GROSS PERFORMED AT [facility] [address] [place] [address] [phone])[phone] MICROSCOPIC All of the stains, including any controls performed, st ain appropriately. MICROSCOPIC PERFORMED AT [facility] [address] [place] [address] (N) PERFORMING SITE Diagnosis performed at: [facility], [place] [address] [place] [address] Signed SIGNATMARIANO E ON FILE Dino Patton MD 12/21/18 1449 END OF REPORT [id number] 11:45:00* Test Item Value Reference Range Interpretation Comments GLUBED (test code = GLUBED) 238 mg/dL 74-106 H Performed by certified router operator pin at [facility] BASIC METABOLIC [id number] 08:28:00* Test Item Value Reference Range Interpretation [...] code = CA) 8.2 mg/dL 8.5-10.1 L [id number] 08:28:00* Test Item Value Reference Range Interpretation Comments MAGNESIUM (test code = MAG) 1.5 mg/dL 1.8-2.4 L BASIC METABOLIC [id number] 08:21:00* Test Item Value Reference Range Interpretation [...] CALCIUM (test code = CA) mg/dL 8.5-10.1 [id number] 08:21:00* Test Item Value Reference Range Interpretation Comments MAGNESIUM (test code = MAG) mg/dL 1.8-2.4 CBC W/AUTO [id number] 07:56:00* Test Item Value Reference Range Interpretation [...] DIFF REQUIRED (test code = MDIFF) NO [id number] 07:38:00* Test Item Value Reference Range Interpretation Comments GLUBED (test code = GLUBED) 277 mg/dL 74-106 H Performed by certified router operator pin at [facility] [id number] 20:34:00* Test Item Value Reference Range Interpretation Comments GLUBED (test code = GLUBED) 165 mg/dL 74-106 H Performed by certified router operator pin at [facility] [id number] 19:18:00* Test Item Value Reference Range Interpretation Comments GLUBED (test code = GLUBED) 203 mg/dL 74-106 H Performed by certified router operator pin at [facility] BASIC METABOLIC [id number] 11:47:00* Test Item Value Reference Range Interpretation [...] mg/dL 8.5-10.1 L PT IN SURGERY RN ZRH5764 V.LAB.KP2 12/18/18 [id number] 11:42:00* Test Item Value Reference Range Interpretation Comments GLUBED (test code = GLUBED) 360 mg/dL 74-106 H Performed by certified router operator pin at [facility] BASIC METABOLIC [id number] 11:41:00* Test Item Value Reference Range Interpretation [...] CA) mg/dL 8.5-10.1 PT IN SURGERY RN KAZ8978 V.LAB.[facility] 12/18/18 0926CBC W/AUTO [id number] 11:11:00* Test Item Value Reference Range Interpretation [...] = MDIFF) NO PT IN SURGERY RN QDL4636 V.LAB.KP2 12/18/18 [id number] 03:55:00* Test Item Value Reference Range Interpretation Comments GLUBED (test code = GLUBED) 269 mg/dL 74-106 H Performed by certified router operator pin at [facility] [id number] 23:58:00* Test Item Value Reference Range Interpretation Comments GLUBED (test code = GLUBED) 233 mg/dL 74-106 H Performed by certified router operator pin at [facility] [id number] 09:16:00* Test Item Value Reference Range Interpretation Comments GLUBED (test code = GLUBED) 179 mg/dL 74-106 H Performed by certified router operator pin at [facility] BASIC METABOLIC [id number] 06:40:00* Test Item Value Reference Range Interpretation Comments SODIUM (test code = NA) 141 mmol/L 136-145 N POTASSIUM (test code = K) 2.8 mmol/L 3.5-5.1 Re sults called to [place] [address] by NIKI 12/17/18 0639Critical results verified and [...] code = CA) 8.3 mg/dL 8.5-10.1 L [id number] 06:40:00* Test Item Value Reference Range Interpretation Comments MAGNESIUM (test code = MAG) 1.6 mg/dL 1.8-2.4 L B-TYPE NATRIURETIC [id number] 06:34:00* Test Item Value Reference Range Interpretation Comments B-TYPE NATRIURETIC PEPTIDE (test code = BNP) 128.51 pgram/mL 0-100 H CBC W/AUTO [id number] 05:33:00* Test Item Value Reference Range Interpretation [...] code = NRBC#) 0.00 K/mm3 0.0-0.1 N [id number] 02:55:00* Test Item Value Reference Range Interpretation Comments GLUBED (test code = GLUBED) 102 mg/dL 74-106 N Performed by certified router operator pin at [facility] [id number] 21:18:00* Test Item Value Reference Range Interpretation Comments GLUBED (test code = GLUBED) 224 mg/dL 74-106 H Performed by certified router operator pin at [facility] [id number] 16:43:00* Test Item Value Reference Range Interpretation Comments GLUBED (test code = GLUBED) 158 mg/dL 74-106 H Performed by certified router operator pin at [facility] DRUGS OF ABUSE SCREEN [id number] 14:45:00* Test Item Value Reference Range Interpretation [...] NEGATIVE <300 ng/mL DRUGS OF ABUSE SCREEN [id number] 14:24:00* Test Item Value Reference Range Interpretation [...] ng/mL - HEPA IMAG INCL GB W [id number] 14:14:00 FAX: Leia Kendrick MSN [place]: B St: ADM FAX: Bobby Self MD FAX: Riley Zavala DO [phone] Name: BREE LINDSAY [facility] : 1975 Age/S: 43/M [address] [facility] Unit #: [id number] Loc: V.30[address] [place] [address] Phys: Leia Kendrick MSN Acct: [id number] Dis Date: Status: ADM IN ONE #: [phone] Exam Date: 12/16/2018 1412 FAX #: [phone] Reason: recurrent n/v EXAMS: CPT CODE: [id number] PA IMAG INCL GB W PHA 36335 HISTORY: recur rent n/v EXAM: NUCLEAR MEDICINE [...] DO Technologist: ESAU ASHRAF Trnscrd Date/Time/By: 12/16/2018 (1419) : By: [email or web address] Orig Print D/T: S: 12/16/2018 (1648) PAGE 1 Signed Report [id number] 11:12:00* Test Item Value Reference Range Interpretation Comments GLUBED (test code = GLUBED) 133 mg/dL 74-106 H Performed by certified router operator pin at [facility] - US ABDOMEN [id number] 10:25:00 Name: BREE LINDSAY [facility] : 1975 Age[facility]S: 43 / [facility] [address] [facility] Unit #: [id number] Loc: [place] [address] Phys: Leia Kendrick Acct: [id number] Dis Date: Status: ADM IN PHONE #: [phone] Exam Date: 12/16/2018939 FAX #: [phone] Reason: n/v EXAMS: CPT CODE: [id number] US ABDOMEN COMPLETE 16323 REASON FOR EXAM: n/v EXAM ORDER DATE: [...] 1 Signed Report (CONTINUED) Name: BREE LINDSAY [facility] : 1975 Age/S: 43 / M [address] [facility] Unit #: [id number] Loc: [place] [address] Phys: Leia Kendrick MSN Acct: [id number] Dis Date: Status: ADM IN PHONE #: [phone] Exam Date: 12/16 0940 FAX #: [phone] Reason: n/v EXAMS: CPT CODE: [id number] US ABDOMEN COMPLETE 76 700 <Continued> Left [...] Riley Beckman DO Technologist: NOEMY OLVERA RT(R),CATALINA Trnorb Date/Time: 12/16/2018 (1025) t.SDR.RR31 Orig Print D/T: S: 12/16/2018 (1028) Probe: PAGE 2 Signed Report [id number] 07:04:00* Test Item Value Reference Range Interpretation Comments GLUBED (test code = GLUBED) 177 mg/dL 74-106 H Performed by certified router operator pin at [facility] URINALYSIS QIHJBPJS4524-01-47 00:25:00* Test Item Value Reference Range Interpretation [...] FEW A Urine Source? Clean CatchBASIC METABOLIC [id number] 00:22:00* Test Item Value Reference Range Interpretation [...] CA) 8.8 mg/dL 8.5-10.1 N HEPATIC FUNCTION [id number] 00:22:00* Test Item Value Reference Range Interpretation [...] reference range due to change in reagent. [id number] 00:22:00* Test Item Value Reference Range Interpretation Comments LIPASE (test code = LIP) < 10 U/L 73.0-393.0 L [id number] 00:22:00* Test Item Value Reference Range Interpretation Comments TROPONIN-I (test code = TROPI) <0.015 ng/mL 0-0.045 N BASIC METABOLIC [id number] 00:12:00* Test Item Value Reference Range Interpretation [...] code = CA) mg/dL 8.5-10.1 HEPATIC FUNCTION [id number] 00:12:00* Test Item Value Reference Range Interpretation [...] TOTAL (test code = ALKP) IUnit/L 45-117 [id number] 00:12:00* Test Item Value Reference Range Interpretation Comments LIPASE (test code = LIP) U/L 73.0-393.0 [id number] 00:12:00* Test Item Value Reference Range Interpretation Comments TROPONIN-I (test code = TROPI) ng/mL 0-0.045 CBC W/O [id number] 00:06:00* Test Item Value Reference Range Interpretation [...] MPV) 10.2 fL 6.7-11.0 N BASIC METABOLIC [id number] 08:09:00* Test Item Value Reference Range Interpretation [...] CA) 9.0 mg/dL 8.5-10.1 N HEPATIC FUNCTION [id number] 08:09:00* Test Item Value Reference Range Interpretation [...] reference range due to change in reagent. [id number] 08:09:00* Test Item Value Reference Range Interpretation Comments LIPASE (test code = LIP) < 10 U/L 73.0-393.0 L [id number] 08:09:00* Test Item Value Reference Range Interpretation Comments TROPONIN-I (test code = TROPI) <0.015 ng/mL 0-0.045 N BASIC METABOLIC [id number] 07:52:00* Test Item Value Reference Range Interpretation [...] code = CA) mg/dL 8.5-10.1 HEPATIC FUNCTION [id number] 07:52:00* Test Item Value Reference Range Interpretation [...] TOTAL (test code = ALKP) IUnit/L 45-117 [id number] 07:52:00* Test Item Value Reference Range Interpretation Comments LIPASE (test code = LIP) U/L 73.0-393.0 [id number] 07:52:00* Test Item Value Reference Range Interpretation Comments TROPONIN-I (test code = TROPI) ng/mL 0-0.045 CBC W/O [id number] 07:40:00* Test Item Value Reference Range Interpretation [...] = MPV) 10.5 fL 6.7-11.0 N POCT-GLUCOSE [id number] 17:19:00* Test Item Value Reference Range Interpretation Comments POC-GLUCOSE METER (BEAKER) (test code = 1538) 266 mg/dL 70-110 H TESTED AT [facility] [address] [facility] [address] POCT-GLUCOSE [id number] 12:17:00* Test Item Value Reference Range Interpretation Comments POC-GLUCOSE METER (BEAKER) (test code = 1538) 240 mg/dL 70-110 H TESTED AT [facility] [address] [facility] [address] POCT-GLUCOSE [id number] 08:12:00* Test Item Value Reference Range Interpretation Comments POC-GLUCOSE METER (BEAKER) (test code = 1538) 184 mg/dL 70-110 H TESTED AT [facility] [address] [facility] [address] [id number] 06:18:00* Test Item Value Reference Range Interpretation Comments PHOSPHORUS (BEAKER) (test code = 604) 2.2 mg/dL 2.3-4.7 L [id number] 06:18:00* Test Item Value Reference Range Interpretation Comments MAGNESIUM (BEAKER) (test code = 627) 1.6 mg/dL 1.6-2.6 BASIC METABOLIC [id number] 06:18:00* Test Item Value Reference Range Interpretation [...] DIALYSIS PATIENTS. CBC W/PLT COUNT & AUTO [id number] 06:16:00* Test Item Value Reference Range Interpretation [...] code = 2801) 0 % 0-1 POCT-GLUCOSE [id number] 21:15:00* Test Item Value Reference Range Interpretation Comments POC-GLUCOSE METER (BEAKER) (test code = 1538) 307 mg/dL 70-110 H Notified RN or MD Patient refused repeat test/TESTED AT [facility] [address] [facility] [address] HEMOGLOBIN [id number] 19:48:00* Test Item Value Reference Range Interpretation Comments HEMOGLOBIN A1C (BEAKER) (test code = 368) 8.4 % 4.3-6.1 H LIPID [id number] 16:17:00* Test Item Value Reference Range Interpretation [...] High 160-189 Very High >=190 BASIC METABOLIC [id number] 16:17:00* Test Item Value Reference Range Interpretation [...] NOT APPLICABLE FOR DIALYSIS PATIENTS. HEPATIC FUNCTION [id number] 16:17:00* Test Item Value Reference Range Interpretation [...] U/L 6-55 CBC W/PLT COUNT & AUTO [id number] 16:07:00* Test Item Value Reference Range Interpretation [...] code = 2801) 0 % 0-1 POCT-GLUCOSE [id number] 16:01:00* Test Item Value Reference Range Interpretation Comments POC-GLUCOSE METER (BEAKER) (test code = 1538) 265 mg/dL 70-110 H TESTED AT [place] [address] [facility] [address] POCT-GLUCOSE [id number] 12:34:00* Test Item Value Reference Range Interpretation Comments POC-GLUCOSE METER (BEAKER) (test code = 1538) 271 mg/dL 70-110 H TESTED AT [place] [address] [facility] [address] Magnesium [id number] 18:51:00* Test Item Value Reference Range Interpretation Comments Magnesium Level (test code = 76392-3) 1.8 1.3-2.1 [facility]2019-09-[facility] 18:51:00* Test Item Value Reference Range Interpretation Comments Lipase (test code = 3040-3) < 4 8-78 L [facility] CenterMagnesium [id number] 18:51:00* Test Item Value Reference Range Interpretation Comments Magnesium Level (test code = 34258-7) 1.8 1.3-2.1 [facility] Center[facility]2019-09-15 18:51:00* Test Item Value Reference Range Interpretation Comments Lipase (test code = 3040-3) < 4 8-78 L [facility] CenterMagnesium Rcmoq1348-06-30 18:51:00* Test Item Value Reference Range Interpretation Comments Magnesium Level (test code = 66993-5) 1.8 1.3-2.1 [facility] CenterLip[facility]2019-09-15 18:51:00* Test Item Value Reference Range Interpretation Comments Lipase (test code = 3040-3) < 4 8-78 L [facility]2019-09-15 18:51:00* Test Item Value Reference Range Interpretation Comments Lipase (test code = 3040-3) < 4 8-78 L [facility] Keqqlgk1304-26-75 20:52:00* Test Item Value Reference Range Interpretation Comments Blood Culture (test code = 12822292) NO GROWTH AFTER 5 DAYS, FINAL REPORT [facility] Aftrpoy2633-92-71 20:52:00* Test Item Value Reference Range Interpretation Comments Blood Culture (test code = 96203568) NO GROWTH AFTER 5 DAYS, FINAL REPORT [facility] Gtzdcgs7006-74-43 20:52:00* Test Item Value Reference Range Interpretation Comments Blood Culture (test code = 05781402) NO GROWTH AFTER 5 DAYS, FINAL REPORT [facility] Ntditwg6824-19-96 20:52:00* Test Item Value Reference Range Interpretation Comments Blood Culture (test code = 69361370) NO GROWTH AFTER 5 DAYS, FINAL REPORT [facility] Wbbldpw0832-32-31 15:19:00* Test Item Value Reference Range Interpretation Comments Bedside Glucose (test code = 18270-5) 261 70-120 H Meter ID: [id number] Regional Medical Center Glucose 2018-11-25 15:19:00* Test Item Value Reference Range Interpretation Comments Bedside Glucose (test code = 94093-3) 261 70-120 H Meter ID: [id number] Regional Medical Center Glucose 2018-11-25 15:19:00* Test Item Value Reference Range Interpretation Comments Bedside Glucose (test code = 37451-7) 261 70-120 H Meter ID: [id number] Regional Medical Center Glucose 2018-11-25 15:19:00* Test Item Value Reference Range Interpretation Comments Bedside Glucose (test code = 81874-4) 261 70-120 H Meter ID: [id number] [facility] Medical CenterWhite Blood Count 2018-11-25 06:12:00* Test Item Value Reference Range Interpretation Comments White Blood Count (test code = 6690-2) 10.09 4.8-10.8 [facility] Medical CenterRed Blood Wicag3486-36-24 06:12:00* Test Item Value Reference Range Interpretation Comments Red Blood Count (test code = 789-8) 3.20 4.3-5.7 L [facility] CenterHemoglobin2019-08-29 06:12:00* Test Item Value Reference Range Interpretation Comments Hemoglobin (test code = 26466-0) 9.0 14.0-18.0 L [facility] CenterHematocrit2019-08-29 06:12:00* Test Item Value Reference Range Interpretation Comments Hematocrit (test code = 4544-3) 28.1 38.2-49.6 L [facility] Medical CenterMean Corpuscular Jfwbbq4489-32-53 06:12:00* Test Item Value Reference Range Interpretation Comments Mean Corpuscular Volume (test code = 787-2) 87.8 81-99 [facility] CenterMean Corpuscular Tntsbhiwfa3636-11-69 06:12:00* Test Item Value Reference Range Interpretation Comments Mean Corpuscular Hemoglobin (test code = 785-6) 28.1 28-32 [facility] CenterMean Corpuscular Hemoglobin Concent 2018-11-25 06:12:00* Test Item Value Reference Range Interpretation Comments Mean Corpuscular Hemoglobin Concent (test code = 786-4) 32.0 31-35 [facility] CenterRed Cell Distribution Hfmcf6501-83-65 06:12:00* Test Item Value Reference Range Interpretation Comments Red Cell Distribution Width (test code = 30737-2) 13.7 11.7 -14.4 [facility] Medical CenterPlatelet Lebfq0969-04-58 06:12:00* Test Item Value Reference Range Interpretation Comments Platelet Count (test code = 777-3) 185 140-360 [facility] CenterNeutrophils (%) (Auto)2018-11-25 06:12:00 * Test Item Value Reference Range Interpretation Comments Neutrophils (%) (Auto) (test code = 19639-5) 60.5 38.7-80.0 [facility] Medical CenterLymphocytes (%) (Auto)2018-11-25 06:12:00 * Test Item Value Reference Range Interpretation Comments Lymphocytes (%) (Auto) (test code = 736-9) 24.7 18.0-39.1 [facility] CenterMonocytes (%) (Auto)2018-11-25 06:12:00* Test Item Value Reference Range Interpretation Comments Monocytes (%) (Auto) (test code = 5905-5) 12.2 4.4-11.3 H [facility] CenterEosinophils (%) (Auto)2018-11-25 06:12:00 * Test Item Value Reference Range Interpretation Comments Eosinophils (%) (Auto) (test code = 713-8) 2.0 0.0-6.0 [facility] CenterBasophils (%) (Auto)2018-11-25 06:12:00* Test Item Value Reference Range Interpretation Comments Basophils (%) (Auto) (test code = 706-2) 0.5 0.0-1.0 [facility] Medical CenterIM GRANULOCYTES %2018-11-25 06:12:00* Test Item Value Reference Range Interpretation Comments IM GRANULOCYTES % (test code = IM GRANULOCYTES %) 0.1 0.0- 1.0 [facility] CenterNeutrophils # (Auto)2018-11-25 06:12:00* Test Item Value Reference Range Interpretation Comments Neutrophils # (Auto) (test code = 751-8) 6.1 2.1-6.9 [facility] CenterLymphocytes # (Auto)2018-11-25 06:12:00* Test Item Value Reference Range Interpretation Comments Lymphocytes # (Auto) (test code = 68627-3) 2.5 1.0-3.2 [facility] CenterMonocytes # (Auto)2018-11-25 06:12:00* Test Item Value Reference Range Interpretation Comments Monocytes # (Auto) (test code = 742-7) 1.2 0.2-0.8 H [facility] CenterEosinophils # (Auto)2018-11-25 06:12:00* Test Item Value Reference Range Interpretation Comments Eosinophils # (Auto) (test code = 711-2) 0.2 0.0-0.4 [facility] CenterBas[facility] # (Auto)2018-11-25 06:12:00* Test Item Value Reference Range Interpretation Comments Basophils # (Auto) (test code = 704-7) 0.1 0.0-0.1 [facility] CenterAbsolute Immature Granulocyte (auto 2018-11-25 06:12:00* Test Item Value Reference Range Interpretation Comments Absolute Immature Granulocyte (auto (zeenat t code = Absolute Immature Granulocyte (auto) 0.01 0-0.1 [facility] CenterWhite Blood Xfitf2564-89-52 06:12:00* Test Item Value Reference Range Interpretation Comments White Blood Count (test code = 6690-2) 10.09 4.8-10.8 [facility] CenterRed Blood Oayvq6689-73-63 06:12:00* Test Item Value Reference Range Interpretation Comments Red Blood Count (test code = 789-8) 3.20 4.3-5.7 L [facility] CenterHemoglobin2019-08-29 06:12:00* Test Item Value Reference Range Interpretation Comments Hemoglobin (test code = 65924-7) 9.0 14.0-18.0 L [facility] CenterHematocrit2019-08-29 06:12:00* Test Item Value Reference Range Interpretation Comments Hematocrit (test code = 4544-3) 28.1 38.2-49.6 L [facility] CenterMean Corpuscular Btozjs8890-10-95 06:12:00* Test Item Value Reference Range Interpretation Comments Mean Corpuscular Volume (test code = 787-2) 87.8 81-99 [facility] CenterMean Corpuscular Rlyyufewqn3028-87-77 06:12:00* Test Item Value Reference Range Interpretation Comments Mean Corpuscular Hemoglobin (test code = 785-6) 28.1 28-32 [facility] CenterMean Corpuscular Hemoglobin Concent 2018-11-25 06:12:00* Test Item Value Reference Range Interpretation Comments Mean Corpuscular Hemoglobin Concent (test code = 786-4) 32.0 31-35 [facility] CenterRed Cell Distribution Gihps6067-43-80 06:12:00* Test Item Value Reference Range Interpretation Comments Red Cell Distribution Width (test code = 34077-7) 13.7 11.7 -14.4 [facility] CenterPlatelet Pxagp1099-60-05 06:12:00* Test Item Value Reference Range Interpretation Comments Platelet Count (test code = 777-3) 185 140-360 [facility] CenterNeutrophils (%) (Auto)2018-11-25 06:12:00 * Test Item Value Reference Range Interpretation Comments Neutrophils (%) (Auto) (test code = 58484-4) 60.5 38.7-80.0 [facility] CenterLymphocytes (%) (Auto)2018-11-25 06:12:00 * Test Item Value Reference Range Interpretation Comments Lymphocytes (%) (Auto) (test code = 736-9) 24.7 18.0-39.1 [facility] CenterMonocytes (%) (Auto)2018-11-25 06:12:00* Test Item Value Reference Range Interpretation Comments Monocytes (%) (Auto) (test code = 5905-5) 12.2 4.4-11.3 H [facility] CenterEosinophils (%) (Auto)2018-11-25 06:12:00 * Test Item Value Reference Range Interpretation Comments Eosinophils (%) (Auto) (test code = 713-8) 2.0 0.0-6.0 [facility] CenterBasophils (%) (Auto)2018-11-25 06:12:00* Test Item Value Reference Range Interpretation Comments Basophils (%) (Auto) (test code = 706-2) 0.5 0.0-1.0 [facility] CenterIM GRANULOCYTES %2018-11-25 06:12:00* Test Item Value Reference Range Interpretation Comments IM GRANULOCYTES % (test code = IM GRANULOCYTES %) 0.1 0.0- 1.0 [facility] CenterNeutrophils # (Auto)2018-11-25 06:12:00* Test Item Value Reference Range Interpretation Comments Neutrophils # (Auto) (test code = 751-8) 6.1 2.1-6.9 [facility] CenterLymphocytes # (Auto)2018-11-25 06:12:00* Test Item Value Reference Range Interpretation Comments Lymphocytes # (Auto) (test code = 50704-3) 2.5 1.0-3.2 [facility] CenterMonocytes # (Auto)2018-11-25 06:12:00* Test Item Value Reference Range Interpretation Comments Monocytes # (Auto) (test code = 742-7) 1.2 0.2-0.8 H [facility] CenterEosinophils # (Auto)2018-11-25 06:12:00* Test Item Value Reference Range Interpretation Comments Eosinophils # (Auto) (test code = 711-2) 0.2 0.0-0.4 [facility] CenterBasophils # (Auto)2018-11-25 06:12:00* Test Item Value Reference Range Interpretation Comments Basophils # (Auto) (test code = 704-7) 0.1 0.0-0.1 [facility] CenterAbsolute Immature Granulocyte (auto 2018-11-25 06:12:00* Test Item Value Reference Range Interpretation Comments Absolute Immature Granulocyte (auto (zeenat t code = Absolute Immature Granulocyte (auto) 0.01 0-0.1 [facility] CenterWhite Blood Tlgyw4018-52-01 06:12:00* Test Item Value Reference Range Interpretation Comments White Blood Count (test code = 6690-2) 10.09 4.8-10.8 [facility] CenterRed Blood Buyrp0875-23-26 06:12:00* Test Item Value Reference Range Interpretation Comments Red Blood Count (test code = 789-8) 3.20 4.3-5.7 L [facility] CenterHemoglobin2019-08-29 06:12:00* Test Item Value Reference Range Interpretation Comments Hemoglobin (test code = 20267-0) 9.0 14.0-18.0 L [facility] CenterHematocrit2019-08-29 06:12:00* Test Item Value Reference Range Interpretation Comments Hematocrit (test code = 4544-3) 28.1 38.2-49.6 L [facility] CenterMean Corpuscular Xvbkkr3635-87-78 06:12:00* Test Item Value Reference Range Interpretation Comments Mean Corpuscular Volume (test code = 787-2) 87.8 81-99 [facility] CenterMean Corpuscular Oresoihzav4001-97-13 06:12:00* Test Item Value Reference Range Interpretation Comments Mean Corpuscular Hemoglobin (test code = 785-6) 28.1 28-32 [facility] CenterMean Corpuscular Hemoglobin Concent 2018-11-25 06:12:00* Test Item Value Reference Range Interpretation Comments Mean Corpuscular Hemoglobin Concent (test code = 786-4) 32.0 31-35 [facility] CenterRed Cell Distribution Wlkyu4037-95-94 06:12:00* Test Item Value Reference Range Interpretation Comments Red Cell Distribution Width (test code = 27930-2) 13.7 11.7 -14.4 [facility] CenterPlatelet Dueif7383-14-92 06:12:00* Test Item Value Reference Range Interpretation Comments Platelet Count (test code = 777-3) 185 140-360 [facility] CenterNeutrophils (%) (Auto)2018-11-25 06:12:00 * Test Item Value Reference Range Interpretation Comments Neutrophils (%) (Auto) (test code = 66891-4) 60.5 38.7-80.0 [facility] CenterLymphocytes (%) (Auto)2018-11-25 06:12:00 * Test Item Value Reference Range Interpretation Comments Lymphocytes (%) (Auto) (test code = 736-9) 24.7 18.0-39.1 [facility] CenterMonocytes (%) (Auto)2018-11-25 06:12:00* Test Item Value Reference Range Interpretation Comments Monocytes (%) (Auto) (test code = 5905-5) 12.2 4.4-11.3 H [facility] CenterEosinophils (%) (Auto)2018-11-25 06:12:00 * Test Item Value Reference Range Interpretation Comments Eosinophils (%) (Auto) (test code = 713-8) 2.0 0.0-6.0 [facility] CenterBasophils (%) (Auto)2018-11-25 06:12:00* Test Item Value Reference Range Interpretation Comments Basophils (%) (Auto) (test code = 706-2) 0.5 0.0-1.0 [facility] CenterIM GRANULOCYTES %2018-11-25 06:12:00* Test Item Value Reference Range Interpretation Comments IM GRANULOCYTES % (test code = IM GRANULOCYTES %) 0.1 0.0- 1.0 [facility] CenterNeutrophils # (Auto)2018-11-25 06:12:00* Test Item Value Reference Range Interpretation Comments Neutrophils # (Auto) (test code = 751-8) 6.1 2.1-6.9 [facility] CenterLymphocytes # (Auto)2018-11-25 06:12:00* Test Item Value Reference Range Interpretation Comments Lymphocytes # (Auto) (test code = 69536-4) 2.5 1.0-3.2 [facility] CenterMonocytes # (Auto)2018-11-25 06:12:00* Test Item Value Reference Range Interpretation Comments Monocytes # (Auto) (test code = 742-7) 1.2 0.2-0.8 H [facility] CenterEosinophils # (Auto)2018-11-25 06:12:00* Test Item Value Reference Range Interpretation Comments Eosinophils # (Auto) (test code = 711-2) 0.2 0.0-0.4 [facility] CenterBasophils # (Auto)2018-11-25 06:12:00* Test Item Value Reference Range Interpretation Comments Basophils # (Auto) (test code = 704-7) 0.1 0.0-0.1 [facility] CenterAbsolute Immature Granulocyte (auto 2018-11-25 06:12:00* Test Item Value Reference Range Interpretation Comments Absolute Immature Granulocyte (auto (zeenat t code = Absolute Immature Granulocyte (auto) 0.01 0-0.1 [facility] CenterWhite Blood Zwyvy6138-32-77 06:12:00* Test Item Value Reference Range Interpretation Comments White Blood Count (test code = 6690-2) 10.09 4.8-10.8 [facility] CenterRed Blood Xqtxi3281-30-93 06:12:00* Test Item Value Reference Range Interpretation Comments Red Blood Count (test code = 789-8) 3.20 4.3-5.7 L [facility] CenterHemoglobin2019-08-29 06:12:00* Test Item Value Reference Range Interpretation Comments Hemoglobin (test code = 43740-4) 9.0 14.0-18.0 L [facility] CenterHematocrit2019-08-29 06:12:00* Test Item Value Reference Range Interpretation Comments Hematocrit (test code = 4544-3) 28.1 38.2-49.6 L [facility] CenterMean Corpuscular Vjrnab8509-94-56 06:12:00* Test Item Value Reference Range Interpretation Comments Mean Corpuscular Volume (test code = 787-2) 87.8 81-99 [facility] CenterMean Corpuscular Estzopyqpj0374-36-73 06:12:00* Test Item Value Reference Range Interpretation Comments Mean Corpuscular Hemoglobin (test code = 785-6) 28.1 28-32 [facility] CenterMean Corpuscular Hemoglobin Concent 2018-11-25 06:12:00* Test Item Value Reference Range Interpretation Comments Mean Corpuscular Hemoglobin Concent (test code = 786-4) 32.0 31-35 [facility] CenterRed Cell Distribution Dorbl4010-03-26 06:12:00* Test Item Value Reference Range Interpretation Comments Red Cell Distribution Width (test code = 49359-0) 13.7 11.7 -14.4 [facility] CenterPlatelet Ztjie4599-53-55 06:12:00* Test Item Value Reference Range Interpretation Comments Platelet Count (test code = 777-3) 185 140-360 [facility] CenterNeutrophils (%) (Auto)2018-11-25 06:12:00 * Test Item Value Reference Range Interpretation Comments Neutrophils (%) (Auto) (test code = 42518-6) 60.5 38.7-80.0 [facility] CenterLymphocytes (%) (Auto)2018-11-25 06:12:00 * Test Item Value Reference Range Interpretation Comments Lymphocytes (%) (Auto) (test code = 736-9) 24.7 18.0-39.1 [facility] CenterMonocytes (%) (Auto)2018-11-25 06:12:00* Test Item Value Reference Range Interpretation Comments Monocytes (%) (Auto) (test code = 5905-5) 12.2 4.4-11.3 H [facility] CenterEosinophils (%) (Auto)2018-11-25 06:12:00 * Test Item Value Reference Range Interpretation Comments Eosinophils (%) (Auto) (test code = 713-8) 2.0 0.0-6.0 [facility] CenterBasophils (%) (Auto)2018-11-25 06:12:00* Test Item Value Reference Range Interpretation Comments Basophils (%) (Auto) (test code = 706-2) 0.5 0.0-1.0 [facility] CenterIM GRANULOCYTES %2018-11-25 06:12:00* Test Item Value Reference Range Interpretation Comments IM GRANULOCYTES % (test code = IM GRANULOCYTES %) 0.1 0.0- 1.0 [facility] CenterNeutrophils # (Auto)2018-11-25 06:12:00* Test Item Value Reference Range Interpretation Comments Neutrophils # (Auto) (test code = 751-8) 6.1 2.1-6.9 [facility] CenterLymphocytes # (Auto)2018-11-25 06:12:00* Test Item Value Reference Range Interpretation Comments Lymphocytes # (Auto) (test code = 51115-4) 2.5 1.0-3.2 [facility] CenterMonocytes # (Auto)2018-11-25 06:12:00* Test Item Value Reference Range Interpretation Comments Monocytes # (Auto) (test code = 742-7) 1.2 0.2-0.8 H [facility] CenterEosinophils # (Auto)2018-11-25 06:12:00* Test Item Value Reference Range Interpretation Comments Eosinophils # (Auto) (test code = 711-2) 0.2 0.0-0.4 [facility] CenterBasophils # (Auto)2018-11-25 06:12:00* Test Item Value Reference Range Interpretation Comments Basophils # (Auto) (test code = 704-7) 0.1 0.0-0.1 [facility] CenterAbsolute Immature Granulocyte (auto 2018-11-25 06:12:00* Test Item Value Reference Range Interpretation Comments Absolute Immature Granulocyte (auto (zeenat t code = Absolute Immature Granulocyte (auto) 0.01 0-0.1 [facility] Acpsx8954-30-96 05:57:00* Test Item Value Reference Range Interpretation Comments Sodium Level (test code = 2951-2) 138 136-145 [facility] CenterPotassium Gzvpz5485-48-67 05:57:00* Test Item Value Reference Range Interpretation Comments Potassium Level (test code = 2823-3) 3.3 3.5-5.1 L [facility] CenterChloride Tccqo8842-90-33 05:57:00* Test Item Value Reference Range Interpretation Comments Chloride Level (test code = 2075-0) 105 98-107 [facility] CenterCarbon Dioxide Ejqlr9331-66-95 05:57:00* Test Item Value Reference Range Interpretation Comments Carbon Dioxide Level (test code = 2028-9) 27 22-29 [facility] CenterAnion Awy7101-62-02 05:57:00* Test Item Value Reference Range Interpretation Comments Anion Gap (test code = 25166-2) 9.3 8-16 [facility] CenterBlood Urea Hovwtmij6945-74-41 05:57:00* Test Item Value Reference Range Interpretation Comments Blood Urea Nitrogen (test code = 3094-0) 15 7-26 [facility] CenterCreatinine2019-08-29 05:57:00* Test Item Value Reference Range Interpretation Comments Creatinine (test code = 2160-0) 1.17 0.72-1.25 [facility] CenterBUN/Creatinine Ztslq2504-09-82 05:57:00* Test Item Value Reference Range Interpretation Comments BUN/Creatinine Ratio (test code = 3097-3) 13 - [facility] CenterEstimat Glomerular Filtration Rate 2018-11-25 05:57:00* Test Item Value Reference Range Interpretation Comments Estimat Glomerular Filtration Rate (test code = 745061917) > 60 >60 Ranges were taken from the National Kidney Disease Education Program and the [facility] literature.Reference ranges:60 or greater: Aqqvqx98-35 ( for 3 consecutive months): Chronic kidney disease 15 or less: Kidney failureCHRISTUS [facility] – Medical CenterGlucose Jajpf4848-70-07 05:57:00* Test Item Value Reference Range Interpretation Comments Glucose Level (test code = ZUD6884) 247 74-118 H [facility] CenterCalcium Selix4250-79-08 05:57:00* Test Item Value Reference Range Interpretation Comments Calcium Level (test code = 44560-1) 8.4 8.4-10.2 [facility]odium Aevue1566-66-34 05:57:00* Test Item Value Reference Range Interpretation Comments Sodium Level (test code = 2951-2) 138 136-145 [facility] CenterPotassium Foqri1123-53-29 05:57:00* Test Item Value Reference Range Interpretation Comments Potassium Level (test code = 2823-3) 3.3 3.5-5.1 L [facility] CenterChloride Iwxpm2751-14-05 05:57:00* Test Item Value Reference Range Interpretation Comments Chloride Level (test code = 2075-0) 105 98-107 [facility] CenterCarbon Dioxide Mmnnm1107-44-48 05:57:00* Test Item Value Reference Range Interpretation Comments Carbon Dioxide Level (test code = 2028-9) 27 - [facility] CenterAnion Zqy2526-16-68 05:57:00* Test Item Value Reference Range Interpretation Comments Anion Gap (test code = 50475-3) 9.3 8-16 [facility] CenterBlood Urea Jondcnyl1921-07-89 05:57:00* Test Item Value Reference Range Interpretation Comments Blood Urea Nitrogen (test code = 3094-0) 15 7-26 [facility] CenterCreatinine2019-08-29 05:57:00* Test Item Value Reference Range Interpretation Comments Creatinine (test code = 2160-0) 1.17 0.72-1.25 [facility] CenterBUN/Creatinine Ymmxn3966-04-38 05:57:00* Test Item Value Reference Range Interpretation Comments BUN/Creatinine Ratio (test code = 3097-3) 13 6- [facility] CenterEstimat Glomerular Filtration Rate 2018-11-25 05:57:00* Test Item Value Reference Range Interpretation Comments Estimat Glomerular Filtration Rate (test code = 870816794) > 60 >60 Ranges were taken from the National Kidney Disease Education Program and the [facility] literature.Reference ranges:60 or greater: Yfizdk75-63 ( for 3 consecutive months): Chronic kidney disease 15 or less: Kidney failureCHRISTUS [facility] – [facility] CenterGlucose Wiryu0015-87-20 05:57:00* Test Item Value Reference Range Interpretation Comments Glucose Level (test code = WYG4827) 247 74-118 H [facility] CenterCalcium Ytfkb8161-05-34 05:57:00* Test Item Value Reference Range Interpretation Comments Calcium Level (test code = 94666-8) 8.4 8.4-10.2 [facility]odium Dbiua9961-82-06 05:57:00* Test Item Value Reference Range Interpretation Comments Sodium Level (test code = 2951-2) 138 136-145 [facility] CenterPotassium Jkdus0869-48-98 05:57:00* Test Item Value Reference Range Interpretation Comments Potassium Level (test code = 2823-3) 3.3 3.5-5.1 L [facility] CenterChloride Dtryr1186-90-84 05:57:00* Test Item Value Reference Range Interpretation Comments Chloride Level (test code = 2075-0) 105 98-107 [facility] CenterCarbon Dioxide Afxua5305-08-62 05:57:00* Test Item Value Reference Range Interpretation Comments Carbon Dioxide Level (test code = 2028-9) 27 - [facility] CenterAnion Bru5955-39-85 05:57:00* Test Item Value Reference Range Interpretation Comments Anion Gap (test code = 07938-2) 9.3 8-16 [facility] CenterBlood Urea Paemsddq8603-50-47 05:57:00* Test Item Value Reference Range Interpretation Comments Blood Urea Nitrogen (test code = 3094-0) 15 7-26 [facility] CenterCreatinine2019-08-29 05:57:00* Test Item Value Reference Range Interpretation Comments Creatinine (test code = 2160-0) 1.17 0.72-1.25 [facility] CenterBUN/Creatinine Yvxbc9750-39-52 05:57:00* Test Item Value Reference Range Interpretation Comments BUN/Creatinine Ratio (test code = 3097-3) 13 6-25 [facility] CenterEstimat Glomerular Filtration Rate 2018-11-25 05:57:00* Test Item Value Reference Range Interpretation Comments Estimat Glomerular Filtration Rate (test code = 073619207) > 60 >60 Ranges were taken from the National Kidney Disease Education Program and the [facility] Kidney Foundation literature.Reference ranges:60 or greater: Ctttpl32-82 ( for 3 consecutive months): Chronic kidney disease 15 or less: Kidney failureCHRISTUS [facility] – Medical CenterGlucose Rbfqx6261-97-36 05:57:00* Test Item Value Reference Range Interpretation Comments Glucose Level (test code = ACZ6072) 247 74-118 H [facility] CenterCalcium Eqwxb5066-10-66 05:57:00* Test Item Value Reference Range Interpretation Comments Calcium Level (test code = 19225-9) 8.4 8.4-10.2 [facility]odium Utfur7742-61-14 05:57:00* Test Item Value Reference Range Interpretation Comments Sodium Level (test code = 2951-2) 138 136-145 [facility] CenterPotassium Dguzl2188-78-66 05:57:00* Test Item Value Reference Range Interpretation Comments Potassium Level (test code = 2823-3) 3.3 3.5-5.1 L [facility] CenterChloride Pibqu9881-93-79 05:57:00* Test Item Value Reference Range Interpretation Comments Chloride Level (test code = 2075-0) 105 98-107 [facility] CenterCarbon Dioxide Nbpkb7863-87-14 05:57:00* Test Item Value Reference Range Interpretation Comments Carbon Dioxide Level (test code = 2028-9) 27 22-29 [facility] CenterAnion Gez2310-89-85 05:57:00* Test Item Value Reference Range Interpretation Comments Anion Gap (test code = 30668-8) 9.3 8-16 [facility] CenterBlood Urea Atkhlulo6600-53-30 05:57:00* Test Item Value Reference Range Interpretation Comments Blood Urea Nitrogen (test code = 3094-0) 15 7-26 [facility] CenterCreatinine2019-08-29 05:57:00* Test Item Value Reference Range Interpretation Comments Creatinine (test code = 2160-0) 1.17 0.72-1.25 [facility] CenterBUN/Creatinine Uaaji6091-16-75 05:57:00* Test Item Value Reference Range Interpretation Comments BUN/Creatinine Ratio (test code = 3097-3) 13 09-21 [facility] CenterEstimat Glomerular Filtration Rate 2018-11-25 05:57:00* Test Item Value Reference Range Interpretation Comments Estimat Glomerular Filtration Rate (test code = 902263928) > 60 >60 Ranges were taken from the National Kidney Disease Education Program and the [facility] Kidney Foundation literature.Reference ranges:60 or greater: Hbjcfw40-70 ( for 3 consecutive months): Chronic kidney disease 15 or less: Kidney failureCHRISTUS [facility] – [facility] CenterGlucose Efjxv7830-67-53 05:57:00* Test Item Value Reference Range Interpretation Comments Glucose Level (test code = MQZ4729) 247 74-118 H [facility] CenterCalcium Jbscw6489-31-46 05:57:00* Test Item Value Reference Range Interpretation Comments Calcium Level (test code = 41404-9) 8.4 8.4-10.2 [facility] CenterBlood Jmlehzt7391-33-29 20:52:00* Test Item Value Reference Range Interpretation Comments Blood Culture (test code = 58550688) NO GROWTH AFTER 48 HOURS [facility] CenterUrine JJI2710-88-33 10:48:00* Test Item Value Reference Range Interpretation Comments Urine WBC (test code = 5821-4) 6-10 0-5 H [facility] CenterUrine OXY6801-56-83 10:48:00* Test Item Value Reference Range Interpretation Comments Urine RBC (test code = 20472-1) 0-5 0-5 [facility] CenterUrine Tgqlksnf9685-00-77 10:48:00* Test Item Value Reference Range Interpretation Comments Urine Bacteria (test code = 82903-2) MODERATE NONE H [facility] CenterUrine Epithelial Jwjry0423-72-47 10:48:00 * Test Item Value Reference Range Interpretation Comments Urine Epithelial Cells (test code = 53955-5) FEW NONE [facility] CenterUrine CWO0700-02-39 10:48:00* Test Item Value Reference Range Interpretation Comments Urine WBC (test code = 5821-4) 6-10 0-5 H [facility] CenterUrine SVP1269-49-03 10:48:00* Test Item Value Reference Range Interpretation Comments Urine RBC (test code = 74368-5) 0-5 0-5 [facility] CenterUrine Pkrvqbmz7276-35-46 10:48:00* Test Item Value Reference Range Interpretation Comments Urine Bacteria (test code = 27824-7) MODERATE NONE H [facility] CenterUrine Epithelial Cragj8685-23-13 10:48:00 * Test Item Value Reference Range Interpretation Comments Urine Epithelial Cells (test code = 39113-6) FEW NONE [facility] [id number] 10:48:00* Test Item Value Reference Range Interpretation Comments Urine WBC (test code = 5821-4) 6-10 0-5 H [facility] [id number] 10:48:00* Test Item Value Reference Range Interpretation Comments Urine RBC (test code = 46562-3) 0-5 0-5 [facility] Wspdppga0514-25-44 10:48:00* Test Item Value Reference Range Interpretation Comments Urine Bacteria (test code = 73691-9) MODERATE NONE H [facility] Epithelial Yfcgo4491-56-74 10:48:00 * Test Item Value Reference Range Interpretation Comments Urine Epithelial Cells (test code = 02206-9) FEW NONE [facility] [id number] 10:48:00* Test Item Value Reference Range Interpretation Comments Urine WBC (test code = 5821-4) 6-10 0-5 H [facility] SBQ7844-84-56 10:48:00* Test Item Value Reference Range Interpretation Comments Urine RBC (test code = 15494-8) 0-5 0-5 [facility] Zzcfzgfp3983-70-79 10:48:00* Test Item Value Reference Range Interpretation Comments Urine Bacteria (test code = 20354-2) MODERATE NONE H [facility] Epithelial Xgbvl2443-19-41 10:48:00 * Test Item Value Reference Range Interpretation Comments Urine Epithelial Cells (test code = 88288-4) FEW NONE [facility] LQA8059-43-84 10:48:00* Test Item Value Reference Range Interpretation Comments Urine WBC (test code = 5821-4) 6-10 0-5 H [facility] [id number] 10:48:00* Test Item Value Reference Range Interpretation Comments Urine RBC (test code = 69110-1) 0-5 0-5 [facility] Phucbous7947-92-85 10:48:00* Test Item Value Reference Range Interpretation Comments Urine Bacteria (test code = 82028-7) MODERATE NONE H [facility] Epithelial Kxncr6495-71-04 10:48:00 * Test Item Value Reference Range Interpretation Comments Urine Epithelial Cells (test code = 17462-4) FEW NONE [facility] Ubjdw1561-75-08 10:24:00* Test Item Value Reference Range Interpretation Comments Urine Color (test code = 5778-6) YELLOW YELLOW [facility] Hxuemou2980-94-58 10:24:00* Test Item Value Reference Range Interpretation Comments Urine Clarity (test code = 53004-2) CLEAR CLEAR [facility] Specific Zqofppa8764-89-73 10:24:00 * Test Item Value Reference Range Interpretation Comments Urine Specific Stevenson (test code = 5811-5) 1.025 1.010-1.02 5 [facility] tH8177-54-25 10:24:00* Test Item Value Reference Range Interpretation Comments Urine pH (test code = 13357-2) 6 5-7 [facility] Leukocyte Ieiqeuot6269-91-09 10:24:00* Test Item Value Reference Range Interpretation Comments Urine Leukocyte Esterase (test code = 20954-9) NEGATIVE NEGATIV E [facility] Bwopxlk5069-64-30 10:24:00* Test Item Value Reference Range Interpretation Comments Urine Nitrite (test code = 63525-3) NEGATIVE NEGATIVE [facility] Mwseylb0926-73-03 10:24:00* Test Item Value Reference Range Interpretation Comments Urine Protein (test code = 91294-1) NEGATIVE NEGATIVE [facility] Glucose (UA)2018-11-24 10:24:00* Test Item Value Reference Range Interpretation Comments Urine Glucose (UA) (test code = 62008-1) NEGATIVE NEGATIVE [facility] Qebllvc2562-75-36 10:24:00* Test Item Value Reference Range Interpretation Comments Urine Ketones (test code = 08532-4) 1+ NEGATIVE H [facility] Jqkzhuakridv0444-26-10 10:24:00* Test Item Value Reference Range Interpretation Comments Urine Urobilinogen (test code = 90676-5) 0.2 0.2-1 [facility] Wozjgrfuo9409-81-87 10:24:00* Test Item Value Reference Range Interpretation Comments Urine Bilirubin (test code = 1977-8) NEGATIVE NEGATIVE [facility] Xaebu1726-48-29 10:24:00* Test Item Value Reference Range Interpretation Comments Urine Blood (test code = 71170-5) NEGATIVE NEGATIVE [facility] Qrkje2542-80-36 10:24:00* Test Item Value Reference Range Interpretation Comments Urine Color (test code = 5778-6) YELLOW YELLOW [facility] Wzljvks6706-25-85 10:24:00* Test Item Value Reference Range Interpretation Comments Urine Clarity (test code = 57270-8) CLEAR CLEAR [facility] Specific Ijpqgms7702-32-81 10:24:00 * Test Item Value Reference Range Interpretation Comments Urine Specific Stevenson (test code = 5811-5) 1.025 1.010-1.02 5 [facility] pU0103-37-52 10:24:00* Test Item Value Reference Range Interpretation Comments Urine pH (test code = 45828-6) 6 5-7 [facility] Leukocyte Miulftzy0205-90-20 10:24:00* Test Item Value Reference Range Interpretation Comments Urine Leukocyte Esterase (test code = 92307-9) NEGATIVE NEGATIV E [facility] Ruuyzjz5000-27-32 10:24:00* Test Item Value Reference Range Interpretation Comments Urine Nitrite (test code = 44725-3) NEGATIVE NEGATIVE [facility] Jekjirv3801-58-62 10:24:00* Test Item Value Reference Range Interpretation Comments Urine Protein (test code = 04680-5) NEGATIVE NEGATIVE [facility] Glucose (UA)2018-11-24 10:24:00* Test Item Value Reference Range Interpretation Comments Urine Glucose (UA) (test code = 56707-4) NEGATIVE NEGATIVE [facility] Cawiqde7742-27-57 10:24:00* Test Item Value Reference Range Interpretation Comments Urine Ketones (test code = 12625-0) 1+ NEGATIVE H [facility] Vudosofgmoum2146-76-55 10:24:00* Test Item Value Reference Range Interpretation Comments Urine Urobilinogen (test code = 50706-1) 0.2 0.2-1 [facility] Imylitqxz6454-06-77 10:24:00* Test Item Value Reference Range Interpretation Comments Urine Bilirubin (test code = 1977-8) NEGATIVE NEGATIVE [facility] Uibve9239-76-54 10:24:00* Test Item Value Reference Range Interpretation Comments Urine Blood (test code = 06305-1) NEGATIVE NEGATIVE [facility] Vkvrp2016-66-23 10:24:00* Test Item Value Reference Range Interpretation Comments Urine Color (test code = 5778-6) YELLOW YELLOW [facility] Oceldix9960-54-17 10:24:00* Test Item Value Reference Range Interpretation Comments Urine Clarity (test code = 32056-6) CLEAR CLEAR [facility] Specific Heohtst6765-31-88 10:24:00 * Test Item Value Reference Range Interpretation Comments Urine Specific Stevenson (test code = 5811-5) 1.025 1.010-1.02 5 [facility] mR3734-18-04 10:24:00* Test Item Value Reference Range Interpretation Comments Urine pH (test code = 81500-1) 6 5-7 [facility] Leukocyte Yvikluay1771-61-10 10:24:00* Test Item Value Reference Range Interpretation Comments Urine Leukocyte Esterase (test code = 65285-5) NEGATIVE NEGATIV E [facility] Sxuesit7461-65-06 10:24:00* Test Item Value Reference Range Interpretation Comments Urine Nitrite (test code = 75843-3) NEGATIVE NEGATIVE [facility] Iadfxxw8302-18-07 10:24:00* Test Item Value Reference Range Interpretation Comments Urine Protein (test code = 99396-3) NEGATIVE NEGATIVE [facility] Glucose (UA)2018-11-24 10:24:00* Test Item Value Reference Range Interpretation Comments Urine Glucose (UA) (test code = 18437-2) NEGATIVE NEGATIVE [facility] Haerwny9514-39-76 10:24:00* Test Item Value Reference Range Interpretation Comments Urine Ketones (test code = 95465-8) 1+ NEGATIVE H [facility] Eurdxcopwyfp4083-67-45 10:24:00* Test Item Value Reference Range Interpretation Comments Urine Urobilinogen (test code = 01464-4) 0.2 0.2-1 [facility] Onnaqyyku2018-59-59 10:24:00* Test Item Value Reference Range Interpretation Comments Urine Bilirubin (test code = 1977-8) NEGATIVE NEGATIVE [facility] Lcvui1509-18-00 10:24:00* Test Item Value Reference Range Interpretation Comments Urine Blood (test code = 05356-2) NEGATIVE NEGATIVE [facility] Bzwbo9553-57-45 10:24:00* Test Item Value Reference Range Interpretation Comments Urine Color (test code = 5778-6) YELLOW YELLOW [facility] Adhxhmj8223-08-27 10:24:00* Test Item Value Reference Range Interpretation Comments Urine Clarity (test code = 92326-3) CLEAR CLEAR [facility] Specific Mpaodru6858-06-88 10:24:00 * Test Item Value Reference Range Interpretation Comments Urine Specific Stevenson (test code = 5811-5) 1.025 1.010-1.02 5 [facility] sR5487-72-47 10:24:00* Test Item Value Reference Range Interpretation Comments Urine pH (test code = 90182-0) 6 5-7 [facility] Leukocyte Hjleqggz9006-42-03 10:24:00* Test Item Value Reference Range Interpretation Comments Urine Leukocyte Esterase (test code = 09302-9) NEGATIVE NEGATIV E [facility] Xxwdpap8533-42-94 10:24:00* Test Item Value Reference Range Interpretation Comments Urine Nitrite (test code = 93444-4) NEGATIVE NEGATIVE [facility] Kkumnrc3927-91-25 10:24:00* Test Item Value Reference Range Interpretation Comments Urine Protein (test code = 44969-5) NEGATIVE NEGATIVE [facility] Glucose (UA)2018-11-24 10:24:00* Test Item Value Reference Range Interpretation Comments Urine Glucose (UA) (test code = 53669-4) NEGATIVE NEGATIVE [facility] Wfrmwdz2973-90-63 10:24:00* Test Item Value Reference Range Interpretation Comments Urine Ketones (test code = 33816-4) 1+ NEGATIVE H [facility] Atpjlwnvrndd4014-14-11 10:24:00* Test Item Value Reference Range Interpretation Comments Urine Urobilinogen (test code = 90326-4) 0.2 0.2-1 [facility] Ocwhcllbk3613-53-90 10:24:00* Test Item Value Reference Range Interpretation Comments Urine Bilirubin (test code = 1977-8) NEGATIVE NEGATIVE [facility] Ixiig9997-71-66 10:24:00* Test Item Value Reference Range Interpretation Comments Urine Blood (test code = 10702-0) NEGATIVE NEGATIVE [facility] Vuowv2628-22-90 10:24:00* Test Item Value Reference Range Interpretation Comments Urine Color (test code = 5778-6) YELLOW YELLOW [facility] Weqdfla0883-59-31 10:24:00* Test Item Value Reference Range Interpretation Comments Urine Clarity (test code = 31579-6) CLEAR CLEAR [facility] Specific Elibkdd7352-35-55 10:24:00 * Test Item Value Reference Range Interpretation Comments Urine Specific Stevenson (test code = 5811-5) 1.025 1.010-1.02 5 [facility] aV5137-88-07 10:24:00* Test Item Value Reference Range Interpretation Comments Urine pH (test code = 29833-7) 6 5-7 [facility] Leukocyte Epzucqdd0944-23-50 10:24:00* Test Item Value Reference Range Interpretation Comments Urine Leukocyte Esterase (test code = 33900-5) NEGATIVE NEGATIV E [facility] Elamsfh9328-61-17 10:24:00* Test Item Value Reference Range Interpretation Comments Urine Nitrite (test code = 63676-3) NEGATIVE NEGATIVE [facility] Hrplvjh9116-33-35 10:24:00* Test Item Value Reference Range Interpretation Comments Urine Protein (test code = 65233-9) NEGATIVE NEGATIVE [facility] Glucose (UA)2018-11-24 10:24:00* Test Item Value Reference Range Interpretation Comments Urine Glucose (UA) (test code = 89626-8) NEGATIVE NEGATIVE [facility] Sndrprg7614-04-25 10:24:00* Test Item Value Reference Range Interpretation Comments Urine Ketones (test code = 28501-1) 1+ NEGATIVE H [facility] Imehoqumvymo3156-23-11 10:24:00* Test Item Value Reference Range Interpretation Comments Urine Urobilinogen (test code = 90810-9) 0.2 0.2-1 [facility] Apmssmpqf3611-18-66 10:24:00* Test Item Value Reference Range Interpretation Comments Urine Bilirubin (test code = 1977-8) NEGATIVE NEGATIVE [facility] Fabce7958-52-01 10:24:00* Test Item Value Reference Range Interpretation Comments Urine Blood (test code = 07971-7) NEGATIVE NEGATIVE [facility] color sicaixsowspeu9490-60-50 08:40:00* Test Item Value Reference Range Interpretation Comments Urine Color (test code = 5778-6) YELLOW YELLOW [facility] ojfzprm8374-14-73 08:40:00* Test Item Value Reference Range Interpretation Comments Urine Clarity (test code = 52267-4) [facility] Test [facility] 2018-11-24 08:40:00* Test Item Value Reference Range Interpretation Comments Urine Specific Stevenson (test code = 5811-5) 1.025 1.010-1.02 5 [facility] pH measurement by automated test hmnlq7089-11-37 08:40:00* Test Item Value Reference Range Interpretation Comments Urine pH (test code = 39551-5) 6 5-7 [facility] leukocyte esterase detection by automated test fpwvz7102-88-95 08:40:00* Test Item Value Reference Range Interpretation Comments Urine Leukocyte Esterase (test code = 39888-8) NEGATIVE NEGATIV E [facility] nitrite detection by automated test aywzj6285-38-60 08:40:00* Test Item Value Reference Range Interpretation Comments Urine Nitrite (test code = 48555-9) NEGATIVE NEGATIVE [facility] protein detection by automated test whaok4360-94-35 08:40:00* Test Item Value Reference Range Interpretation Comments Urine Protein (test code = 60998-0) NEGATIVE NEGATIVE [facility] glucose detection by automated test fewvo9056-78-40 08:40:00* Test Item Value Reference Range Interpretation Comments Urine Glucose (UA) (test code = 79206-8) NEGATIVE NEGATIVE [facility] ketones detection by automated test fbyje5512-48-45 08:40:00* Test Item Value Reference Range Interpretation Comments Urine Ketones (test code = 54244-7) 1+ NEGATIVE [facility] urobilinogen measurement by test strip (mass/volume)2018-11-24 08:40:00* Test Item Value Reference Range Interpretation Comments Urine Urobilinogen (test code = 66651-0) 0.2 0.2-1 [facility] total bilirubin nqgtxsgsv3457-65-39 08:40:00* Test Item Value Reference Range Interpretation Comments Urine Bilirubin (test code = 1977-8) NEGATIVE NEGATIVE [facility] erythrocytes ujsnrpwhc9829-27-50 08:40:00* Test Item Value Reference Range Interpretation Comments Urine Blood (test code = 92105-1) NEGATIVE NEGATIVE [facility] CenterAutomated urine sediment leukocyte count by microscopy (number/high power field)2018-11-24 08:40:00* Test Item Value Reference Range Interpretation Comments Urine WBC (test code = 5821-4) 6-10 0-5 [facility] CenterErythrocytes detection in urine sediment by light myytqnwgtk6792-56-65 08:40:00* Test Item Value Reference Range Interpretation Comments Urine RBC (test code = 61777-8) 0-5 0-5 [facility] CenterBacteria detection in urine sediment by light psimogtugk4908-09-66 08:40:00* Test Item Value Reference Range Interpretation Comments Urine Bacteria (test code = 57034-2) MODERATE NONE [facility] CenterEpithelial cells detection in urine sediment by light vslwtyjleu1684-62-09 08:40:00* Test Item Value Reference Range Interpretation Comments Urine Epithelial Cells (test code = 45172-5) FEW NONE [facility] CenterLipase2019-08-28 03:50:00* Test Item Value Reference Range Interpretation Comments Lipase (test code = 3040-3) < 4 8-78 L [facility] CenterC[facility] 1 VEW - GJKI2278-08-90 18:41:00 [facility] [address] [address] Patient Name: BREE LINDSAY MR #: [id number] : 1975 Age/Sex: 42/M Req #: [id number] Adm Physician: ISACC JAVED MD Ordered by: NEIL PEREZ MD Report #: [id number] Location: [facility] Room/Bed: [place] [address] Procedure: [id number] HOPD/CXR 1 VEW - HOPD Exam Date: 11/22/18 Exam Time: 1755 REPORT STATUS: Signed EXA MINATION: CXR 1 VIEW - HOPD COMPARISON: None INDICATION: Hemateme sis [id number] DISCUSSION: Frontal view of the chest obtained [...] on 11/22/181843 COPY TO: NEIL PEREZ MD COKZXG4411-71-63 11:31:00* Test Item Value Reference Range Interpretation Comments GLUBED (test code = GLUBED) 163 mg/dL 74-106 H Performed by certified router operator pin at [facility] IPGDXA1563-52-96 05:52:00* Test Item Value Reference Range Interpretation Comments GLUBED (test code = GLUBED) 339 mg/dL 74-106 H Performed by certified router operator pin at [facility] BASIC METABOLIC EZDEO1031-25-97 05:04:00* Test Item Value Reference Range Interpretation [...] code = CA) 8.6 mg/dL 8.5-10.1 N OECPRZPKAS4662-07-23 05:04:00* Test Item Value Reference Range Interpretation Comments PHOSPHORUS (test code = PHOS) 2.5 mg/dL 2.5-4.9 N SYMUEARSI2152-36-31 05:04:00* Test Item Value Reference Range Interpretation Comments MAGNESIUM (test code = MAG) 1.7 mg/dL 1.8-2.4 L CBC W/AUTO [id number] 04:58:00* Test Item Value Reference Range Interpretation [...] (test code = MDIFF) NO BASIC METABOLIC UQTNX8736-86-82 04:54:00* Test Item Value Reference Range Interpretation [...] CALCIUM (test code = CA) mg/dL 8.5-10.1 IJVJMXBMTB6670-05-34 04:54:00* Test Item Value Reference Range Interpretation Comments PHOSPHORUS (test code = PHOS) mg/dL 2.5-4.9 DLHRWRWHZ8938-38-70 04:54:00* Test Item Value Reference Range Interpretation Comments MAGNESIUM (test code = MAG) mg/dL 1.8-2.4 NFUUIG4882-20-25 21:18:00* Test Item Value Reference Range Interpretation Comments GLUBED (test code = GLUBED) 363 mg/dL 74-106 H Performed by certified router operator pin at [facility] [id number] 18:20:00* Test Item Value Reference Range Interpretation Comments GLYCOSYLATED HEMOGLOBIN (HA1C) (test code = GLYHGB) 9.0 % HbA1 4. 8-6.0 H ESTIMATED AVERAGE GLUCOSE (test code = EAG) 212 MG/DL UNFNLK7970-88-39 17:42:00* Test Item Value Reference Range Interpretation Comments GLUBED (test code = GLUBED) 216 mg/dL 74-106 H Performed by certified router operator pin at [facility] LHHJDQ6961-60-15 13:09:00* Test Item Value Reference Range Interpretation Comments GLUBED (test code = GLUBED) 209 mg/dL 74-106 H Performed by certified router operator pin at [facility] LACTIC VQAN5159-65-63 08:53:00* Test Item Value Reference Range Interpretation [...] taking into account the patients history. PROTHROMBIN OJAS3643-62-75 07:23:00* Test Item Value Reference Range Interpretation [...] (2.5-3.5) IS PATIENT ON ANTICOAGULANTS? NTHROMBOPLASTIN TIME IEXHOGQ5175-16-01 07:23:00* Test Item Value Reference Range Interpretation Comments THROMBOPLASTIN TIME PARTIAL (test code = PTT) 26.2 seconds 25.0-36. 5 N IS PATIENT ON ANTICOAGULANTS? NBASIC METABOLIC YGWQB8833-88-66 06:41:00* Test Item Value Reference Range Interpretation [...] CA) 9.7 mg/dL 8.5-10.1 N HEPATIC FUNCTION RCUQD3105-10-29 06:41:00* Test Item Value Reference Range Interpretation [...] reference range due to change in reagent. SFCGMT4998-39-36 06:41:00* Test Item Value Reference Range Interpretation Comments LIPASE (test code = LIP) 16 U/L 73.0-393.0 L TPEHJOSX-G8824-69-03 06:41:00* Test Item Value Reference Range Interpretation Comments TROPONIN-I (test code = TROPI) <0.015 ng/mL 0-0.045 N BASIC METABOLIC BXJDP2091-65-90 06:27:00* Test Item Value Reference Range Interpretation [...] code = CA) mg/dL 8.5-10.1 HEPATIC FUNCTION VSNTX3555-47-24 06:27:00* Test Item Value Reference Range Interpretation [...] TOTAL (test code = ALKP) IUnit/L 45-117 OKLNZE0662-44-38 06:27:00* Test Item Value Reference Range Interpretation Comments LIPASE (test code = LIP) U/L 73.0-393.0 WIRPFFSP-R9996-56-03 06:27:00* Test Item Value Reference Range Interpretation Comments TROPONIN-I (test code = TROPI) ng/mL 0-0.045 POC LACTIC WAGW6908-30-38 06:23:00* Test Item Value Reference Range Interpretation Comments POC LACTIC ACID (test code = POCLAC) 1.46 MMOL/L 0.4-2.2 N CBC W/O [id number] 06:22:00* Test Item Value Reference Range Interpretation [...] = MPV) 11.6 fL 6.7-11.0 H GASTRIC BQLRXKVH8585-97-06 00:53:00 [place] [address] Patient Name: BREE LINDSAY MR #: [id number] : 1975 Age/Sex: 42/M Req #: [id number] Adm Physician: Ordered by: TAVIA GARCIA MD Report #: [id number] Location: [place] Room/Bed: Procedure: [id number] N M/GASTRIC EMPTYING Exam Date: Exam Time: REPORT STATUS: Signed Solid-phase gastric emptying study Reason for examination: GERD with esophagitis; gastritis The protocol used for this study is based on the Consensus Recommendations for Gastric Scintigraphy by the [place] [employer] and the Society [...] on 09/21/1856 COPY TO: TAVIA GARCIA MD Bvqyeo3883-35-92 15:34:00* Test Item Value Reference Range Interpretation Comments Lipase (test code = 3040-3) < 4 8-78 L [facility]2019-05-14 15:34:00* Test Item Value Reference Range Interpretation Comments Lipase (test code = 3040-3) < 4 8-78 L [facility] CenterGLUBED2019-05-11 11:39:00* Test Item Value Reference Range Interpretation Comments GLUBED (test code = GLUBED) 102 mg/dL 74-106 N Performed by certified router operator pin at [facility] BASIC METABOLIC ZWPJK8368-02-34 11:27:00* Test Item Value Reference Range Interpretation [...] CA) 8.6 mg/dL 8.5-10.1 N CBC W/AUTO [id number] 11:02:00* Test Item Value Reference Range Interpretation [...] DIFF REQUIRED (test code = MDIFF) NO [id number] 07:41:00* Test Item Value Reference Range Interpretation Comments GLUBED (test code = GLUBED) 111 mg/dL 74-106 H Performed by certified router operator pin at [facility] KIHQEG9306-27-20 21:20:00* Test Item Value Reference Range Interpretation Comments GLUBED (test code = GLUBED) 201 mg/dL 74-106 H Performed by certified router operator pin at [facility] JESIFG7676-67-42 16:36:00* Test Item Value Reference Range Interpretation Comments GLUBED (test code = GLUBED) 214 mg/dL 74-106 H Performed by certified router operator pin at [facility] LTLSYW6798-43-82 12:00:00* Test Item Value Reference Range Interpretation Comments GLUBED (test code = GLUBED) 266 mg/dL 74-106 H Performed by certified router operator pin at [facility] FFQBSS6781-26-20 07:31:00* Test Item Value Reference Range Interpretation Comments GLUBED (test code = GLUBED) 252 mg/dL 74-106 H Performed by certified router operator pin at [facility] [id number] 21:20:00* Test Item Value Reference Range Interpretation Comments GLUBED (test code = GLUBED) 109 mg/dL 74-106 H Performed by certified router operator pin at [facility] [id number] 16:47:00* Test Item Value Reference Range Interpretation Comments GLUBED (test code = GLUBED) 328 mg/dL 74-106 H Performed by certified router operator pin at [facility] XHANUS3415-07-36 11:32:00* Test Item Value Reference Range Interpretation Comments GLUBED (test code = GLUBED) 145 mg/dL 74-106 H Performed by certified router operator pin at [facility] [id number] 07:54:00* Test Item Value Reference Range Interpretation Comments GLUBED (test code = GLUBED) 347 mg/dL 74-106 H Performed by certified router operator pin at [facility] CBC W/AUTO [id number] 07:28:00* Test Item Value Reference Range Interpretation [...] (test code = MDIFF) NO BASIC METABOLIC [id number] 07:10:00* Test Item Value Reference Range Interpretation [...] CA) 8.8 mg/dL 8.5-10.1 N BASIC METABOLIC [id number] 06:59:00* Test Item Value Reference Range Interpretation [...] CALCIUM (test code = CA) mg/dL 8.5-10.1 [id number] 22:44:00* Test Item Value Reference Range Interpretation Comments GLUBED (test code = GLUBED) 364 mg/dL 74-106 H Performed by certified router operator pin at [facility] BASIC METABOLIC [id number] 17:43:00* Test Item Value Reference Range Interpretation [...] CA) 9.9 mg/dL 8.5-10.1 N HEPATIC FUNCTION [id number] 17:43:00* Test Item Value Reference Range Interpretation [...] reference range due to change in reagent. [id number] 17:43:00* Test Item Value Reference Range Interpretation Comments LIPASE (test code = LIP) 18 U/L 73.0-393.0 L BASIC METABOLIC [id number] 17:22:00* Test Item Value Reference Range Interpretation [...] code = CA) mg/dL 8.5-10.1 HEPATIC FUNCTION [id number] 17:22:00* Test Item Value Reference Range Interpretation [...] TOTAL (test code = ALKP) IUnit/L 45-117 [id number] 17:22:00* Test Item Value Reference Range Interpretation Comments LIPASE (test code = LIP) U/L 73.0-393.0 URINALYSIS [id number] 17:00:00* Test Item Value Reference Range Interpretation [...] FEW #/LPF FEW Urine Source? Clean CatchURINALYSIS [id number] 16:55:00* Test Item Value Reference Range Interpretation [...] HPF NONE Urine Source? Clean CatchCBC W/O [id number] 16:40:00* Test Item Value Reference Range Interpretation [...] MPV) 10.7 fL 6.7-11.0 N CBC W/O [id number] 16:37:00* Test Item Value Reference Range Interpretation [...] (test code = MPV) fL 6.7-11.0 Bedside Vwonayr5688-66-90 08:08:00* Test Item Value Reference Range Interpretation Comments Bedside Glucose (test code = 06080-3) 217 70-120 H Meter ID: [id number] Gl[facility] 2018-07-07 08:08:00* Test Item Value Reference Range Interpretation Comments Bedside Glucose (test code = 90564-0) 217 70-120 H Meter ID: [id number] CenterBedside Glucose 2018-07-07 08:08:00* Test Item Value Reference Range Interpretation Comments Bedside Glucose (test code = 50075-0) 217 70-120 H Meter ID: [id number] Medical Centergnesium Level 2018-07-07 06:31:00* Test Item Value Reference Range Interpretation Comments Magnesium Level (test code = 11258-3) 1.4 1.3-2.1 [facility] Pnuhz2906-41-45 06:31:00* Test Item Value Reference Range Interpretation Comments Magnesium Level (test code = 97018-5) 1.4 1.3-2.1 [facility] Bnnuv4473-77-08 06:31:00* Test Item Value Reference Range Interpretation Comments Magnesium Level (test code = 10697-3) 1.4 1.3-2.1 [facility] Napja6569-22-21 06:31:00* Test Item Value Reference Range Interpretation Comments Magnesium Level (test code = 17012-5) 1.4 1.3-2.1 [facility] Izdqv5830-90-02 06:27:00* Test Item Value Reference Range Interpretation Comments Sodium Level (test code = 2951-2) 137 136-145 [facility] CenterPotassium Fxtmh3759-69-68 06:27:00* Test Item Value Reference Range Interpretation Comments Potassium Level (test code = 2823-3) 2.7 3.5-5.1 LL Results repeated and called to [place] at 0624 on 07/07/18 by Lisa henry Read back and verified.[facility] CenterChloride Level 2018-07-07 06:27:00* Test Item Value Reference Range Interpretation Comments Chloride Level (test code = 2075-0) 96 98-107 L [facility] Medical CenterCarbon Dioxide Ogokr0653-35-63 06:27:00* Test Item Value Reference Range Interpretation Comments Carbon Dioxide Level (test code = 2028-9) 32 22-29 H [facility] CenterAnion [id number] 06:27:00* Test Item Value Reference Range Interpretation Comments Anion Gap (test code = 84553-0) 11.7 8-16 [facility] CenterBlood Urea Eziigdyi5782-45-66 06:27:00* Test Item Value Reference Range Interpretation Comments Blood Urea Nitrogen (test code = 3094-0) 6 7-26 L [facility] CenterCreatinine2019-04-10 06:27:00* Test Item Value Reference Range Interpretation Comments Creatinine (test code = 2160-0) 0.85 0.72-1.25 [facility] CenterBUN/Creatinine Rfwpg8867-95-92 06:27:00* Test Item Value Reference Range Interpretation Comments BUN/Creatinine Ratio (test code = 3097-3) 7 6-25 [facility] Medical CenterEstimat Glomerular Filtration Rate 2018-07-07 06:27:00* Test Item Value Reference Range Interpretation Comments Estimat Glomerular Filtration Rate (test code = 530586057) > 60 >60 Ranges were taken from the National Kidney Disease Education Program and the [facility] [employer] literature.Reference ranges:60 or greater: Wekouy86-57 ( for 3 consecutive months): Chronic kidney disease 15 or less: Kidney failureCHRISTUS Santa Rosa Hospital – Medical CenterGlucose Ykljn5670-03-15 06:27:00* Test Item Value Reference Range Interpretation Comments Glucose Level (test code = PBT2083) 136 74-118 H [facility] CenterCalcium Gdvra7612-14-74 06:27:00* Test Item Value Reference Range Interpretation Comments Calcium Level (test code = 57884-5) 8.4 8.4-10.2 [facility] Medical CenterTotal Joypnpgtl1582-76-92 06:27:00* Test Item Value Reference Range Interpretation Comments Total Bilirubin (test code = 1975-2) 0.5 0.2-1.2 [facility] Medical CenterAspartate Amino Transf (AST/SGOT) 2018-07-07 06:27:00* Test Item Value Reference Range Interpretation Comments Aspartate Amino Transf (AST/SGOT) (test code = Aspartate Amino Transf (AST/SGOT)) 12 5-34 [facility] CenterAlanine Aminotransferase (ALT/SGPT) 2018-07-07 06:27:00* Test Item Value Reference Range Interpretation Comments Alanine Aminotransferase (ALT/SGPT) (test code = 1742-6) < 6 0-55 [facility] CenterTotal Igfejgc8697-34-56 06:27:00* Test Item Value Reference Range Interpretation Comments Total Protein (test code = 2885-2) 5.8 6.5-8.1 L [facility] CenterAlbumin2019-04-10 06:27:00* Test Item Value Reference Range Interpretation Comments Albumin (test code = 1751-7) 3.1 3.5-5.0 L [facility] CenterGlobulin2019-04-10 06:27:00* Test Item Value Reference Range Interpretation Comments Globulin (test code = 59252-1) 2.7 2.3-3.5 [facility] CenterAlbumin/Globulin Pokap7942-05-45 06:27:00 * Test Item Value Reference Range Interpretation Comments Albumin/Globulin Ratio (test code = 1759-0) 1.1 0.8-2.0 [facility] CenterAlkaline Ujptjlgkvhu1874-22-80 06:27:00* Test Item Value Reference Range Interpretation Comments Alkaline Phosphatase (test code = 6768-6) 68 40-150 [facility]odium Adyab3937-21-36 06:27:00* Test Item Value Reference Range Interpretation Comments Sodium Level (test code = 2951-2) 137 136-145 [facility] CenterPotassium Hdqvu9245-74-76 06:27:00* Test Item Value Reference Range Interpretation Comments Potassium Level (test code = 2823-3) 2.7 3.5-5.1 LL Results repeated and called to [place] at 0624 on 07/07/18 by Lisa henry Read back and verified.[facility] CenterChloride Level 2018-07-07 06:27:00* Test Item Value Reference Range Interpretation Comments Chloride Level (test code = 2075-0) 96 98-107 L [facility] Medical CenterCarbon Dioxide Mqavv9435-03-96 06:27:00* Test Item Value Reference Range Interpretation Comments Carbon Dioxide Level (test code = 2028-9) 32 22-29 H [facility] CenterAnion Lwb1294-29-84 06:27:00* Test Item Value Reference Range Interpretation Comments Anion Gap (test code = 35389-5) 11.7 8-16 [facility] CenterBlood Urea Ttnmlnat2703-37-63 06:27:00* Test Item Value Reference Range Interpretation Comments Blood Urea Nitrogen (test code = 3094-0) 6 7-26 L [facility] CenterCreatinine2019-04-10 06:27:00* Test Item Value Reference Range Interpretation Comments Creatinine (test code = 2160-0) 0.85 0.72-1.25 [facility] CenterBUN/Creatinine Ahmeb0396-10-21 06:27:00* Test Item Value Reference Range Interpretation Comments BUN/Creatinine Ratio (test code = 3097-3) 7 6-25 [facility] CenterEstimat Glomerular Filtration Rate 2018-07-07 06:27:00* Test Item Value Reference Range Interpretation Comments Estimat Glomerular Filtration Rate (test code = 248433884) > 60 >60 Ranges were taken from the National Kidney Disease Education Program and the [facility] literature.Reference ranges:60 or greater: Qcuyqa00-74 ( for 3 consecutive months): Chronic kidney disease 15 or less: Kidney failureCHRISTUS Santa [facility] Hospital – Medical CenterGlucose Jtlec3434-42-08 06:27:00* Test Item Value Reference Range Interpretation Comments Glucose Level (test code = VLY4495) 136 74-118 H [facility] CenterCalcium Mjxrh6118-30-00 06:27:00* Test Item Value Reference Range Interpretation Comments Calcium Level (test code = 36351-5) 8.4 8.4-10.2 [facility] CenterTotal Fhqwxtqiw2579-12-94 06:27:00* Test Item Value Reference Range Interpretation Comments Total Bilirubin (test code = 1975-2) 0.5 0.2-1.2 [facility] CenterAspartate Amino Transf (AST/SGOT) 2018-07-07 06:27:00* Test Item Value Reference Range Interpretation Comments Aspartate Amino Transf (AST/SGOT) (test code = Aspartate Amino Transf (AST/SGOT)) 12 5-34 [facility] CenterAlanine Aminotransferase (ALT/SGPT) 2018-07-07 06:27:00* Test Item Value Reference Range Interpretation Comments Alanine Aminotransferase (ALT/SGPT) (test code = 1742-6) < 6 0-55 [facility] CenterTotal Tfewbim0512-57-59 06:27:00* Test Item Value Reference Range Interpretation Comments Total Protein (test code = 2885-2) 5.8 6.5-8.1 L [facility] CenterAlbumin2019-04-10 06:27:00* Test Item Value Reference Range Interpretation Comments Albumin (test code = 1751-7) 3.1 3.5-5.0 L [facility] CenterGlobulin2019-04-10 06:27:00* Test Item Value Reference Range Interpretation Comments Globulin (test code = 34962-0) 2.7 2.3-3.5 [facility] CenterAlbumin/Globulin Njqww2065-05-59 06:27:00 * Test Item Value Reference Range Interpretation Comments Albumin/Globulin Ratio (test code = 1759-0) 1.1 0.8-2.0 [facility] CenterAlkaline Cmrjedqkhlu7920-06-44 06:27:00* Test Item Value Reference Range Interpretation Comments Alkaline Phosphatase (test code = 6768-6) 68 40-150 [facility]odium Zbfbr8527-81-52 06:27:00* Test Item Value Reference Range Interpretation Comments Sodium Level (test code = 2951-2) 137 136-145 [facility] CenterPotassium Gwjpn5414-23-54 06:27:00* Test Item Value Reference Range Interpretation Comments Potassium Level (test code = 2823-3) 2.7 3.5-5.1 LL Results repeated and called to [place] at 0624 on 07/07/18 by Lisa hnery Read back and verified.[facility] CenterChloride Level 2018-07-07 06:27:00* Test Item Value Reference Range Interpretation Comments Chloride Level (test code = 2075-0) 96 98-107 L [facility] Medical CenterCarbon Dioxide Uyeyw4873-13-92 06:27:00* Test Item Value Reference Range Interpretation Comments Carbon Dioxide Level (test code = 2028-9) 32 22-29 H [facility] CenterAnion Qch9343-35-27 06:27:00* Test Item Value Reference Range Interpretation Comments Anion Gap (test code = 82649-7) 11.7 8-16 [facility] CenterBlood Urea Atdnsoou8348-08-67 06:27:00* Test Item Value Reference Range Interpretation Comments Blood Urea Nitrogen (test code = 3094-0) 6 7-26 L [facility] CenterCreatinine2019-04-10 06:27:00* Test Item Value Reference Range Interpretation Comments Creatinine (test code = 2160-0) 0.85 0.72-1.25 [facility] CenterBUN/Creatinine Jocve2099-85-63 06:27:00* Test Item Value Reference Range Interpretation Comments BUN/Creatinine Ratio (test code = 3097-3) 7 6-25 [facility] CenterEstimat Glomerular Filtration Rate 2018-07-07 06:27:00* Test Item Value Reference Range Interpretation Comments Estimat Glomerular Filtration Rate (test code = 149675653) > 60 >60 Ranges were taken from the National Kidney Disease Education Program and the [facility] [employer] literature.Reference ranges:60 or greater: Qfofzf65-11 ( for 3 consecutive months): Chronic kidney disease 15 or less: Kidney failureCHRISTUS [facility] – Medical CenterGlucose Qlzzk6400-93-66 06:27:00* Test Item Value Reference Range Interpretation Comments Glucose Level (test code = JEV3872) 136 74-118 H [facility] CenterCalcium Jzcaj6049-37-67 06:27:00* Test Item Value Reference Range Interpretation Comments Calcium Level (test code = 34275-5) 8.4 8.4-10.2 [facility] Azorfopfz1247-99-18 06:27:00* Test Item Value Reference Range Interpretation Comments Total Bilirubin (test code = 1975-2) 0.5 0.2-1.2 [facility] CenterAspartate Amino Transf (AST/SGOT) 2018-07-07 06:27:00* Test Item Value Reference Range Interpretation Comments Aspartate Amino Transf (AST/SGOT) (test code = Aspartate Amino Transf (AST/SGOT)) 12 5-34 [facility] CenterAlanine Aminotransferase (ALT/SGPT) 2018-07-07 06:27:00* Test Item Value Reference Range Interpretation Comments Alanine Aminotransferase (ALT/SGPT) (test code = 1742-6) < 6 0-55 [facility] Ebecltm4081-39-62 06:27:00* Test Item Value Reference Range Interpretation Comments Total Protein (test code = 2885-2) 5.8 6.5-8.1 L [facility] CenterAlbumin2019-04-10 06:27:00* Test Item Value Reference Range Interpretation Comments Albumin (test code = 1751-7) 3.1 3.5-5.0 L [facility] CenterGlobulin2019-04-10 06:27:00* Test Item Value Reference Range Interpretation Comments Globulin (test code = 94250-1) 2.7 2.3-3.5 [facility] CenterAlbumin/Globulin Zgaep6902-18-93 06:27:00 * Test Item Value Reference Range Interpretation Comments Albumin/Globulin Ratio (test code = 1759-0) 1.1 0.8-2.0 [facility] CenterAlkaline Wysvdrfmosa6610-01-10 06:27:00* Test Item Value Reference Range Interpretation Comments Alkaline Phosphatase (test code = 6768-6) 68 40-150 [facility]tal Xuhonvqhs4850-96-98 06:27:00* Test Item Value Reference Range Interpretation Comments Total Bilirubin (test code = 1975-2) 0.5 0.2-1.2 [facility] CenterAspartate Amino Transf (AST/SGOT) 2018-07-07 06:27:00* Test Item Value Reference Range Interpretation Comments Aspartate Amino Transf (AST/SGOT) (test code = Aspartate Amino Transf (AST/SGOT)) [facility] CenterAlanine Aminotransferase (ALT/SGPT) 2018-07-07 06:27:00* Test Item Value Reference Range Interpretation Comments Alanine Aminotransferase (ALT/SGPT) (test code = 1742-6) < 6 0-55 [facility] CenterTotal Howiqog5135-88-88 06:27:00* Test Item Value Reference Range Interpretation Comments Total Protein (test code = 2885-2) 5.8 6.5-8.1 L [facility] CenterAlbumin2019-04-10 06:27:00* Test Item Value Reference Range Interpretation Comments Albumin (test code = 1751-7) 3.1 3.5-5.0 L [facility] CenterGlobulin2019-04-10 06:27:00* Test Item Value Reference Range Interpretation Comments Globulin (test code = 38007-3) 2.7 2.3-3.5 [facility] CenterAlbumin/Globulin Jvfps6433-84-12 06:27:00 * Test Item Value Reference Range Interpretation Comments Albumin/Globulin Ratio (test code = 1759-0) 1.1 0.8-2.0 [facility] CenterAlkaline Hgxcwdlzvts2860-35-78 06:27:00* Test Item Value Reference Range Interpretation Comments Alkaline Phosphatase (test code = 6768-6) 68 40-150 [facility] CenterTotal Iokbyfvdn8577-62-85 06:27:00* Test Item Value Reference Range Interpretation Comments Total Bilirubin (test code = 1975-2) 0.5 0.2-1.2 [facility] CenterAspartate Amino Transf (AST/SGOT) 2018-07-07 06:27:00* Test Item Value Reference Range Interpretation Comments Aspartate Amino Transf (AST/SGOT) (test code = Aspartate Amino Transf (AST/SGOT)) [facility] CenterAlanine Aminotransferase (ALT/SGPT) 2018-07-07 06:27:00* Test Item Value Reference Range Interpretation Comments Alanine Aminotransferase (ALT/SGPT) (test code = 1742-6) < 6 0-55 [facility] CenterTotal Dxgkurk7756-03-00 06:27:00* Test Item Value Reference Range Interpretation Comments Total Protein (test code = 2885-2) 5.8 6.5-8.1 L [facility] CenterAlbumin2019-04-10 06:27:00* Test Item Value Reference Range Interpretation Comments Albumin (test code = 1751-7) 3.1 3.5-5.0 L [facility] CenterGlobulin2019-04-10 06:27:00* Test Item Value Reference Range Interpretation Comments Globulin (test code = 56506-2) 2.7 2.3-3.5 [facility] CenterAlbumin/Globulin Iirjc3938-98-47 06:27:00 * Test Item Value Reference Range Interpretation Comments Albumin/Globulin Ratio (test code = 1759-0) 1.1 0.8-2.0 [facility] CenterAlkaline Olehnlqdulf8225-49-96 06:27:00* Test Item Value Reference Range Interpretation Comments Alkaline Phosphatase (test code = 6768-6) 68 40-150 [facility] CenterTotal Nqwobnges5906-05-21 06:27:00* Test Item Value Reference Range Interpretation Comments Total Bilirubin (test code = 1975-2) 0.5 0.2-1.2 [facility] CenterAspartate Amino Transf (AST/SGOT) 2018-07-07 06:27:00* Test Item Value Reference Range Interpretation Comments Aspartate Amino Transf (AST/SGOT) (test code = Aspartate Amino Transf (AST/SGOT)) 12 5-34 [facility] CenterAlanine Aminotransferase (ALT/SGPT) 2018-07-07 06:27:00* Test Item Value Reference Range Interpretation Comments Alanine Aminotransferase (ALT/SGPT) (test code = 1742-6) < 6 0-55 [facility] CenterT[facility] Ermbsdk2688-88-41 06:27:00* Test Item Value Reference Range Interpretation Comments Total Protein (test code = 2885-2) 5.8 6.5-8.1 L [facility] CenterAlbumin2019-04-10 06:27:00* Test Item Value Reference Range Interpretation Comments Albumin (test code = 1751-7) 3.1 3.5-5.0 L [facility] CenterGlobulin2019-04-10 06:27:00* Test Item Value Reference Range Interpretation Comments Globulin (test code = 07700-5) 2.7 2.3-3.5 [facility] CenterAlbumin/Globulin Xbenh7817-14-92 06:27:00 * Test Item Value Reference Range Interpretation Comments Albumin/Globulin Ratio (test code = 1759-0) 1.1 0.8-2.0 [facility] CenterAlkaline Rvmukxihnhf5341-17-58 06:27:00* Test Item Value Reference Range Interpretation Comments Alkaline Phosphatase (test code = 6768-6) 68 40-150 [facility] CenterWhite Blood Bibza4874-32-06 05:57:00* Test Item Value Reference Range Interpretation Comments White Blood Count (test code = 6690-2) 7.71 4.8-10.8 [facility] CenterRed Blood Cqbzi4098-37-74 05:57:00* Test Item Value Reference Range Interpretation Comments Red Blood Count (test code = 789-8) 3.90 4.3-5.7 L [facility] CenterHemoglobin2019-04-10 05:57:00* Test Item Value Reference Range Interpretation Comments Hemoglobin (test code = 98111-0) 11.2 14.0-18.0 L [facility] CenterHematocrit2019-04-10 05:57:00* Test Item Value Reference Range Interpretation Comments Hematocrit (test code = 4544-3) 33.8 38.2-49.6 L [facility] CenterMean Corpuscular Oaduqz5297-17-28 05:57:00* Test Item Value Reference Range Interpretation Comments Mean Corpuscular Volume (test code = 787-2) 86.7 81-99 [facility] CenterMean Corpuscular Vwkeescryt6842-74-62 05:57:00* Test Item Value Reference Range Interpretation Comments Mean Corpuscular Hemoglobin (test code = 785-6) 28.7 28-32 [facility] CenterMean Corpuscular Hemoglobin Concent 2018-07-07 05:57:00* Test Item Value Reference Range Interpretation Comments Mean Corpuscular Hemoglobin Concent (test code = 786-4) 33.1 31-35 [facility] CenterRed Cell Distribution Pfntj9342-29-69 05:57:00* Test Item Value Reference Range Interpretation Comments Red Cell Distribution Width (test code = 88325-7) 13.2 11.7 -14.4 [facility] Medical CenterPlatelet Nztra3923-74-85 05:57:00* Test Item Value Reference Range Interpretation Comments Platelet Count (test code = 777-3) 182 140-360 [facility] CenterNeutrophils (%) (Auto)2018-07-07 05:57:00 * Test Item Value Reference Range Interpretation Comments Neutrophils (%) (Auto) (test code = 63661-9) 54.0 38.7-80.0 [facility] CenterLymphocytes (%) (Auto)2018-07-07 05:57:00 * Test Item Value Reference Range Interpretation Comments Lymphocytes (%) (Auto) (test code = 736-9) 20.6 18.0-39.1 [facility] CenterMonocytes (%) (Auto)2018-07-07 05:57:00* Test Item Value Reference Range Interpretation Comments Monocytes (%) (Auto) (test code = 5905-5) 19.5 4.4-11.3 H [facility] CenterEosinophils (%) (Auto)2018-07-07 05:57:00 * Test Item Value Reference Range Interpretation Comments Eosinophils (%) (Auto) (test code = 713-8) 5.3 0.0-6.0 [facility] CenterBasophils (%) (Auto)2018-07-07 05:57:00* Test Item Value Reference Range Interpretation Comments Basophils (%) (Auto) (test code = 706-2) 0.5 0.0-1.0 [facility] CenterIM GRANULOCYTES %2018-07-07 05:57:00* Test Item Value Reference Range Interpretation Comments IM GRANULOCYTES % (test code = IM GRANULOCYTES %) 0.1 0.0- 1.0 [facility] CenterNeutrophils # (Auto)2018-07-07 05:57:00* Test Item Value Reference Range Interpretation Comments Neutrophils # (Auto) (test code = 751-8) 4.2 2.1-6.9 [facility] CenterLymphocytes # (Auto)2018-07-07 05:57:00* Test Item Value Reference Range Interpretation Comments Lymphocytes # (Auto) (test code = 87187-4) 1.6 1.0-3.2 [facility] CenterMonocytes # (Auto)2018-07-07 05:57:00* Test Item Value Reference Range Interpretation Comments Monocytes # (Auto) (test code = 742-7) 1.5 0.2-0.8 H [facility] CenterEosinophils # (Auto)2018-07-07 05:57:00* Test Item Value Reference Range Interpretation Comments Eosinophils # (Auto) (test code = 711-2) 0.4 0.0-0.4 [facility] CenterBasophils # (Auto)2018-07-07 05:57:00* Test Item Value Reference Range Interpretation Comments Basophils # (Auto) (test code = 704-7) 0.0 0.0-0.1 [facility] CenterAbsolute Immature Granulocyte (auto 2018-07-07 05:57:00* Test Item Value Reference Range Interpretation Comments Absolute Immature Granulocyte (auto (zeenat t code = Absolute Immature Granulocyte (auto) 0.01 0-0.1 [facility] CenterWhite Blood Rjbvg8531-55-44 05:57:00* Test Item Value Reference Range Interpretation Comments White Blood Count (test code = 6690-2) 7.71 4.8-10.8 [facility] CenterRed Blood Ztixa5728-70-61 05:57:00* Test Item Value Reference Range Interpretation Comments Red Blood Count (test code = 789-8) 3.90 4.3-5.7 L [facility] CenterHemoglobin2019-04-10 05:57:00* Test Item Value Reference Range Interpretation Comments Hemoglobin (test code = 23855-0) 11.2 14.0-18.0 L [facility] CenterHematocrit2019-04-10 05:57:00* Test Item Value Reference Range Interpretation Comments Hematocrit (test code = 4544-3) 33.8 38.2-49.6 L [facility] CenterMean Corpuscular Yuzcak5765-14-71 05:57:00* Test Item Value Reference Range Interpretation Comments Mean Corpuscular Volume (test code = 787-2) 86.7 81-99 [facility] CenterMean Corpuscular Wffsziitoh3623-19-71 05:57:00* Test Item Value Reference Range Interpretation Comments Mean Corpuscular Hemoglobin (test code = 785-6) 28.7 28-32 [facility] CenterMean Corpuscular Hemoglobin Concent 2018-07-07 05:57:00* Test Item Value Reference Range Interpretation Comments Mean Corpuscular Hemoglobin Concent (test code = 786-4) 33.1 31-35 [facility] CenterRed Cell Distribution Nkscp7939-63-13 05:57:00* Test Item Value Reference Range Interpretation Comments Red Cell Distribution Width (test code = 40183-6) 13.2 11.7 -14.4 [facility] CenterPlatelet Orsgj6855-55-69 05:57:00* Test Item Value Reference Range Interpretation Comments Platelet Count (test code = 777-3) 182 140-360 [facility] CenterNeutrophils (%) (Auto)2018-07-07 05:57:00 * Test Item Value Reference Range Interpretation Comments Neutrophils (%) (Auto) (test code = 04358-4) 54.0 38.7-80.0 [facility] CenterLymphocytes (%) (Auto)2018-07-07 05:57:00 * Test Item Value Reference Range Interpretation Comments Lymphocytes (%) (Auto) (test code = 736-9) 20.6 18.0-39.1 [facility] CenterMonocytes (%) (Auto)2018-07-07 05:57:00* Test Item Value Reference Range Interpretation Comments Monocytes (%) (Auto) (test code = 5905-5) 19.5 4.4-11.3 H [facility] CenterEosinophils (%) (Auto)2018-07-07 05:57:00 * Test Item Value Reference Range Interpretation Comments Eosinophils (%) (Auto) (test code = 713-8) 5.3 0.0-6.0 [facility] CenterBasophils (%) (Auto)2018-07-07 05:57:00* Test Item Value Reference Range Interpretation Comments Basophils (%) (Auto) (test code = 706-2) 0.5 0.0-1.0 [facility] CenterIM GRANULOCYTES %2018-07-07 05:57:00* Test Item Value Reference Range Interpretation Comments IM GRANULOCYTES % (test code = IM GRANULOCYTES %) 0.1 0.0- 1.0 [facility] CenterNeutrophils # (Auto)2018-07-07 05:57:00* Test Item Value Reference Range Interpretation Comments Neutrophils # (Auto) (test code = 751-8) 4.2 2.1-6.9 [facility] CenterLymphocytes # (Auto)2018-07-07 05:57:00* Test Item Value Reference Range Interpretation Comments Lymphocytes # (Auto) (test code = 15997-6) 1.6 1.0-3.2 [facility] CenterMonocytes # (Auto)2018-07-07 05:57:00* Test Item Value Reference Range Interpretation Comments Monocytes # (Auto) (test code = 742-7) 1.5 0.2-0.8 H [facility] CenterEosinophils # (Auto)2018-07-07 05:57:00* Test Item Value Reference Range Interpretation Comments Eosinophils # (Auto) (test code = 711-2) 0.4 0.0-0.4 [facility] CenterBasophils # (Auto)2018-07-07 05:57:00* Test Item Value Reference Range Interpretation Comments Basophils # (Auto) (test code = 704-7) 0.0 0.0-0.1 [facility] CenterAbsolute Immature Granulocyte (auto 2018-07-07 05:57:00* Test Item Value Reference Range Interpretation Comments Absolute Immature Granulocyte (auto (zeenat t code = Absolute Immature Granulocyte (auto) 0.01 0-0.1 [facility] CenterWhite Blood Dphls5534-99-20 05:57:00* Test Item Value Reference Range Interpretation Comments White Blood Count (test code = 6690-2) 7.71 4.8-10.8 [facility] CenterRed Blood Niunl2318-71-42 05:57:00* Test Item Value Reference Range Interpretation Comments Red Blood Count (test code = 789-8) 3.90 4.3-5.7 L [facility] CenterHemoglobin2019-04-10 05:57:00* Test Item Value Reference Range Interpretation Comments Hemoglobin (test code = 63134-4) 11.2 14.0-18.0 L [facility] CenterHematocrit2019-04-10 05:57:00* Test Item Value Reference Range Interpretation Comments Hematocrit (test code = 4544-3) 33.8 38.2-49.6 L [facility] CenterMean Corpuscular Fkpvae4589-54-22 05:57:00* Test Item Value Reference Range Interpretation Comments Mean Corpuscular Volume (test code = 787-2) 86.7 81-99 [facility] CenterMean Corpuscular Zcklkmlegy2387-65-48 05:57:00* Test Item Value Reference Range Interpretation Comments Mean Corpuscular Hemoglobin (test code = 785-6) 28.7 28-32 [facility] CenterMean Corpuscular Hemoglobin Concent 2018-07-07 05:57:00* Test Item Value Reference Range Interpretation Comments Mean Corpuscular Hemoglobin Concent (test code = 786-4) 33.1 31-35 [facility] CenterRed Cell Distribution Hdpff2086-04-39 05:57:00* Test Item Value Reference Range Interpretation Comments Red Cell Distribution Width (test code = 25748-1) 13.2 11.7 -14.4 [facility] CenterPlatelet Zdkpg6042-98-21 05:57:00* Test Item Value Reference Range Interpretation Comments Platelet Count (test code = 777-3) 182 140-360 [facility] CenterNeutrophils (%) (Auto)2018-07-07 05:57:00 * Test Item Value Reference Range Interpretation Comments Neutrophils (%) (Auto) (test code = 37984-5) 54.0 38.7-80.0 [facility] CenterLymphocytes (%) (Auto)2018-07-07 05:57:00 * Test Item Value Reference Range Interpretation Comments Lymphocytes (%) (Auto) (test code = 736-9) 20.6 18.0-39.1 [facility] CenterMonocytes (%) (Auto)2018-07-07 05:57:00* Test Item Value Reference Range Interpretation Comments Monocytes (%) (Auto) (test code = 5905-5) 19.5 4.4-11.3 H [facility] CenterEosinophils (%) (Auto)2018-07-07 05:57:00 * Test Item Value Reference Range Interpretation Comments Eosinophils (%) (Auto) (test code = 713-8) 5.3 0.0-6.0 [facility] CenterBasophils (%) (Auto)2018-07-07 05:57:00* Test Item Value Reference Range Interpretation Comments Basophils (%) (Auto) (test code = 706-2) 0.5 0.0-1.0 [facility] CenterIM GRANULOCYTES %2018-07-07 05:57:00* Test Item Value Reference Range Interpretation Comments IM GRANULOCYTES % (test code = IM GRANULOCYTES %) 0.1 0.0- 1.0 [facility] CenterNeutrophils # (Auto)2018-07-07 05:57:00* Test Item Value Reference Range Interpretation Comments Neutrophils # (Auto) (test code = 751-8) 4.2 2.1-6.9 [facility] CenterLymphocytes # (Auto)2018-07-07 05:57:00* Test Item Value Reference Range Interpretation Comments Lymphocytes # (Auto) (test code = 57144-4) 1.6 1.0-3.2 [facility] CenterMonocytes # (Auto)2018-07-07 05:57:00* Test Item Value Reference Range Interpretation Comments Monocytes # (Auto) (test code = 742-7) 1.5 0.2-0.8 H [facility] CenterEosinophils # (Auto)2018-07-07 05:57:00* Test Item Value Reference Range Interpretation Comments Eosinophils # (Auto) (test code = 711-2) 0.4 0.0-0.4 [facility] CenterBasophils # (Auto)2018-07-07 05:57:00* Test Item Value Reference Range Interpretation Comments Basophils # (Auto) (test code = 704-7) 0.0 0.0-0.1 [facility] CenterAbsolute Immature Granulocyte (auto 2018-07-07 05:57:00* Test Item Value Reference Range Interpretation Comments Absolute Immature Granulocyte (auto (zeenat t code = Absolute Immature Granulocyte (auto) 0.01 0-0.1 [facility] CenterAmylase Ayadv0907-61-43 04:08:00* Test Item Value Reference Range Interpretation Comments Amylase Level (test code = 1798-8) 48 25-125 [facility] CenterLipase2019-04-05 04:08:00* Test Item Value Reference Range Interpretation Comments Lipase (test code = 3040-3) < 4 8-78 L [facility] CenterAmylase Vzulo0061-47-37 04:08:00* Test Item Value Reference Range Interpretation Comments Amylase Level (test code = 1798-8) 48 25-125 [facility] CenterAmylase Widbf2989-41-89 04:08:00* Test Item Value Reference Range Interpretation Comments Amylase Level (test code = 1798-8) 48 25-125 [facility] CenterAmylase Fwjlt9832-27-35 04:08:00* Test Item Value Reference Range Interpretation Comments Amylase Level (test code = 1798-8) 48 25-125 [facility] CenterAmylase Jzrni4621-92-42 04:08:00* Test Item Value Reference Range Interpretation Comments Amylase Level (test code = 1798-8) 48 25-125 [facility] CenterAmylase Bfmps9690-89-57 04:08:00* Test Item Value Reference Range Interpretation Comments Amylase Level (test code = 1798-8) 48 25-125 [facility] CenterUrine [id number] 01:56:00* Test Item Value Reference Range Interpretation Comments Urine WBC (test code = 5821-4) 0-5 0-5 [facility] CenterUrine [id number] 01:56:00* Test Item Value Reference Range Interpretation Comments Urine RBC (test code = 61911-3) 0-5 0-5 [facility] CenterUrine Rthgrlnv9092-17-25 01:56:00* Test Item Value Reference Range Interpretation Comments Urine Bacteria (test code = 73883-2) FEW NONE [facility] CenterUrine Epithelial Kyjew2296-47-74 01:56:00 * Test Item Value Reference Range Interpretation Comments Urine Epithelial Cells (test code = 30581-9) FEW NONE [facility] CenterUrine Ktoaz8308-63-62 01:56:00* Test Item Value Reference Range Interpretation Comments Urine Mucus (test code = 8247-9) FEW RARE H [facility] CenterUrine [id number] 01:56:00* Test Item Value Reference Range Interpretation Comments Urine WBC (test code = 5821-4) 0-5 0-5 [facility] CenterUrine [id number] 01:56:00* Test Item Value Reference Range Interpretation Comments Urine RBC (test code = 86842-2) 0-5 0-5 [facility] CenterUrine Gdabbfig1826-98-20 01:56:00* Test Item Value Reference Range Interpretation Comments Urine Bacteria (test code = 05168-6) FEW NONE [facility] CenterUrine Epithelial Tsmop8547-00-63 01:56:00 * Test Item Value Reference Range Interpretation Comments Urine Epithelial Cells (test code = 10958-6) FEW NONE [facility] Grwsu6077-55-38 01:56:00* Test Item Value Reference Range Interpretation Comments Urine Mucus (test code = 8247-9) FEW RARE H [facility] QYO5418-41-56 01:56:00* Test Item Value Reference Range Interpretation Comments Urine WBC (test code = 5821-4) 0-5 0-5 [facility] AHK1047-80-99 01:56:00* Test Item Value Reference Range Interpretation Comments Urine RBC (test code = 05407-9) 0-5 0-5 [facility] Bjgxlknp5351-71-75 01:56:00* Test Item Value Reference Range Interpretation Comments Urine Bacteria (test code = 21155-7) FEW NONE [facility] CenterUrine Epithelial Pmhnc7316-66-09 01:56:00 * Test Item Value Reference Range Interpretation Comments Urine Epithelial Cells (test code = 72806-3) FEW NONE [facility] Lspoj0853-64-86 01:56:00* Test Item Value Reference Range Interpretation Comments Urine Mucus (test code = 8247-9) FEW RARE H [facility] Hzivd1360-82-63 01:56:00* Test Item Value Reference Range Interpretation Comments Urine Mucus (test code = 8247-9) FEW RARE H [facility] Cvegq6022-02-56 01:56:00* Test Item Value Reference Range Interpretation Comments Urine Mucus (test code = 8247-9) FEW RARE H [facility] Vbayr9477-12-47 01:56:00* Test Item Value Reference Range Interpretation Comments Urine Mucus (test code = 8247-9) FEW RARE [facility] Yslll5532-31-19 01:47:00* Test Item Value Reference Range Interpretation Comments Urine Color (test code = 5778-6) YELLOW YELLOW [facility] Zuzkbrr8062-52-40 01:47:00* Test Item Value Reference Range Interpretation Comments Urine Clarity (test code = 67887-1) CLEAR CLEAR [facility] Specific Hiyxgpl9595-77-62 01:47:00 * Test Item Value Reference Range Interpretation Comments Urine Specific Stevenson (test code = 5811-5) 1.020 1.010-1.02 5 [facility] iE4875-89-91 01:47:00* Test Item Value Reference Range Interpretation Comments Urine pH (test code = 28527-2) 8 5-7 H [facility] Leukocyte Rafbzilz9204-13-57 01:47:00* Test Item Value Reference Range Interpretation Comments Urine Leukocyte Esterase (test code = 5799-2) NEGATIVE NEGATIVE [facility] Uafcfsj1880-82-55 01:47:00* Test Item Value Reference Range Interpretation Comments Urine Nitrite (test code = 11588-5) NEGATIVE NEGATIVE [facility] Xruzbjq8441-61-00 01:47:00* Test Item Value Reference Range Interpretation Comments Urine Protein (test code = 5804-0) 1+ NEGATIVE H [facility] Glucose (UA)2018-07-02 01:47:00* Test Item Value Reference Range Interpretation Comments Urine Glucose (UA) (test code = 2349-9) NEGATIVE NEGATIVE [facility] Irnepjn4294-50-00 01:47:00* Test Item Value Reference Range Interpretation Comments Urine Ketones (test code = 39597-6) 2+ NEGATIVE H [facility] Frrqfhlwwebc1222-61-19 01:47:00* Test Item Value Reference Range Interpretation Comments Urine Urobilinogen (test code = 48040-1) 0.2 0.2-1 [facility] Vaqyqxknn6474-37-05 01:47:00* Test Item Value Reference Range Interpretation Comments Urine Bilirubin (test code = 1978-6) 1+ NEGATIVE H Confirmatory test currently unavailable. False positive results may occur.[facility] Jisss0185-04-92 01:47:00* Test Item Value Reference Range Interpretation Comments Urine Blood (test code = 61375-6) NEGATIVE NEGATIVE [facility] CenterUrine Hmbte6496-63-39 01:47:00* Test Item Value Reference Range Interpretation Comments Urine Color (test code = 5778-6) YELLOW YELLOW [facility] CenterUrine Elnlwqz7503-36-19 01:47:00* Test Item Value Reference Range Interpretation Comments Urine Clarity (test code = 89664-9) CLEAR CLEAR [facility] Specific Igjqbet5301-59-98 01:47:00 * Test Item Value Reference Range Interpretation Comments Urine Specific Stevenson (test code = 5811-5) 1.020 1.010-1.02 5 [facility] CenterUrine [id number] 01:47:00* Test Item Value Reference Range Interpretation Comments Urine pH (test code = 54342-5) 8 5-7 H [facility] Leukocyte Afitvhzp5833-98-77 01:47:00* Test Item Value Reference Range Interpretation Comments Urine Leukocyte Esterase (test code = 5799-2) NEGATIVE NEGATIVE [facility] Jyonnju8424-30-71 01:47:00* Test Item Value Reference Range Interpretation Comments Urine Nitrite (test code = 01848-3) NEGATIVE NEGATIVE [facility] Xhgmymm4881-27-21 01:47:00* Test Item Value Reference Range Interpretation Comments Urine Protein (test code = 5804-0) 1+ NEGATIVE H [facility] CenterUrine Glucose (UA)2018-07-02 01:47:00* Test Item Value Reference Range Interpretation Comments Urine Glucose (UA) (test code = 2349-9) NEGATIVE NEGATIVE [facility] CenterU[facility] Qvcpdir0299-36-78 01:47:00* Test Item Value Reference Range Interpretation Comments Urine Ketones (test code = 65624-2) 2+ NEGATIVE H [facility] Yiggfaiesxbf0010-96-82 01:47:00* Test Item Value Reference Range Interpretation Comments Urine Urobilinogen (test code = 21678-9) 0.2 0.2-1 [facility] CenterU[facility] Hbtogigmu3541-85-93 01:47:00* Test Item Value Reference Range Interpretation Comments Urine Bilirubin (test code = 1978-6) 1+ NEGATIVE H Confirmatory test currently unavailable. False positive results may occur.[facility] CenterU[facility] Ztqza5917-85-25 01:47:00* Test Item Value Reference Range Interpretation Comments Urine Blood (test code = 67154-0) NEGATIVE NEGATIVE [facility] CenterU[facility] Mtnre3385-26-77 01:47:00* Test Item Value Reference Range Interpretation Comments Urine Color (test code = 5778-6) YELLOW YELLOW [facility] CenterUrine Pqpjnuk3478-33-90 01:47:00* Test Item Value Reference Range Interpretation Comments Urine Clarity (test code = 63590-5) CLEAR CLEAR [facility] Specific Rheogmv7923-10-92 01:47:00 * Test Item Value Reference Range Interpretation Comments Urine Specific Stevenson (test code = 5811-5) 1.020 1.010-1.02 5 [facility] CenterU[facility] [id number] 01:47:00* Test Item Value Reference Range Interpretation Comments Urine pH (test code = 46660-5) 8 5-7 H [facility] CenterU[facility] Leukocyte Ikymtqbm7000-33-70 01:47:00* Test Item Value Reference Range Interpretation Comments Urine Leukocyte Esterase (test code = 5799-2) NEGATIVE NEGATIVE [facility] CenterU[facility] Oddvlgp7854-42-44 01:47:00* Test Item Value Reference Range Interpretation Comments Urine Nitrite (test code = 58040-3) NEGATIVE NEGATIVE [facility] CenterU[facility] Xjikltz2281-46-34 01:47:00* Test Item Value Reference Range Interpretation Comments Urine Protein (test code = 5804-0) 1+ NEGATIVE H [facility] CenterUrine Glucose (UA)2018-07-02 01:47:00* Test Item Value Reference Range Interpretation Comments Urine Glucose (UA) (test code = 2349-9) NEGATIVE NEGATIVE [facility] CenterU[facility] Efjkpnt7284-50-30 01:47:00* Test Item Value Reference Range Interpretation Comments Urine Ketones (test code = 44587-1) 2+ NEGATIVE H [facility] CenterUrine Ymecoejuqpnq6526-26-05 01:47:00* Test Item Value Reference Range Interpretation Comments Urine Urobilinogen (test code = 58813-7) 0.2 0.2-1 [facility] CenterU[facility] Vkucksqio1075-40-32 01:47:00* Test Item Value Reference Range Interpretation Comments Urine Bilirubin (test code = 1978-6) 1+ NEGATIVE H Confirmatory test currently unavailable. False positive results may occur.[facility] CenterU[facility] Pisla8048-18-35 01:47:00* Test Item Value Reference Range Interpretation Comments Urine Blood (test code = 70895-6) NEGATIVE NEGATIVE [facility] CenterUS ABDOMEN VKFQMHBD1022-78-23 10:20:00 [facility] [address] [address] Patient Name: BREE LINDSAY MR #: [id number] : 1975 Age/Sex: 42/M Req #: [id number] Adm Physician: Ordered by: TAVIA GARCIA MD Report #: [id number] Location: US Room/Bed: Procedure: 1385-1966 U S/US ABDOMEN COMPLETE Exam Date: Exam [...] y. 2. Otherwise, unremarkable. Signed by: Ana HuitronODon, M.M .M. on 06/23/2018 10:23 AM Dictated By: CATARINO SRIVASTAVA DO Electronically Sig lizette By: CATARINO SRIVASTAVA DO on 06/23/18 1023 Transcribed By: PAULA on 06/23/18 102 3 COPY TO: TAVIA GARCIA MD [id number] 05:55:00* Test Item Value Reference Range Interpretation Comments GLUBED (test code = GLUBED) 195 mg/dL 74-106 H Performed by certified router operator pin at [facility] [id number] 17:33:00* Test Item Value Reference Range Interpretation Comments GLUBED (test code = GLUBED) 151 mg/dL 74-106 H Performed by certified router operator pin at [facility] BASIC METABOLIC [id number] 15:46:00* Test Item Value Reference Range Interpretation [...] code = CA) 7.7 mg/dL 8.5-10.1 L [id number] 12:16:00* Test Item Value Reference Range Interpretation Comments GLUBED (test code = GLUBED) 136 mg/dL 74-106 H Performed by certified router operator pin at [facility] [id number] 07:53:00* Test Item Value Reference Range Interpretation Comments GLUBED (test code = GLUBED) 129 mg/dL 74-106 H Performed by certified router operator pin at [facility] COMPREHENSIVE METABOLIC [id number] 06:41:00* Test Item Value Reference Range Interpretation Comments SODIUM (test code = NA) 139 mmol/L 136-145 N POTASSIUM (test code = K) 2.7 mmol/L 3.5-5.1 [facility] kvng called to [id number] by [email or web address] 05/16/18 0636Critical results verified and [...] due to change in reagent. CBC W/AUTO [id number] 05:31:00* Test Item Value Reference Range Interpretation [...] code = NRBC#) 0.00 K/mm3 0.0-0.1 N [id number] 20:43:00* Test Item Value Reference Range Interpretation Comments GLUBED (test code = GLUBED) 122 mg/dL 74-106 H Performed by certified router operator pin at [facility] [id number] 17:15:00* Test Item Value Reference Range Interpretation Comments GLUBED (test code = GLUBED) 145 mg/dL 74-106 H Performed by certified router operator pin at [facility] [id number] 11:46:00* Test Item Value Reference Range Interpretation Comments GLUBED (test code = GLUBED) 228 mg/dL 74-106 H Performed by certified router operator pin at [facility] [id number] 07:49:00* Test Item Value Reference Range Interpretation Comments GLUBED (test code = GLUBED) 123 mg/dL 74-106 H Performed by certified router operator pin at [facility] COMPREHENSIVE METABOLIC [id number] 07:19:00* Test Item Value Reference Range Interpretation Comments SODIUM (test code = NA) 140 mmol/L 136-145 N POTASSIUM (test code = K) 2.9 mmol/L 3.5-5.1 L Re sults called to [id number] by [email or web address] 05/15/18 0716Critical results verified and [...] due to change in reagent. CBC W/AUTO [id number] 06:20:00* Test Item Value Reference Range Interpretation [...] code = NRBC#) 0.00 K/mm3 0.0-0.1 N [id number] 21:14:00* Test Item Value Reference Range Interpretation Comments GLUBED (test code = GLUBED) 152 mg/dL 74-106 H Performed by certified router operator pin at [facility] [id number] 17:16:00* Test Item Value Reference Range Interpretation Comments GLUBED (test code = GLUBED) 140 mg/dL 74-106 H Performed by certified router operator pin at [facility] [id number] 11:55:00* Test Item Value Reference Range Interpretation Comments GLUBED (test code = GLUBED) 236 mg/dL 74-106 H Performed by certified router operator pin at [facility] COMPREHENSIVE METABOLIC [id number] 08:50:00* Test Item Value Reference Range Interpretation [...] due to change in reagent. COMPREHENSIVE METABOLIC [id number] 08:38:00* Test Item Value Reference Range Interpretation [...] code = ALKP) IUnit/L 45-117 CBC W/AUTO [id number] 08:00:00* Test Item Value Reference Range Interpretation [...] DIFF REQUIRED (test code = MDIFF) NO [id number] 07:51:00* Test Item Value Reference Range Interpretation Comments GLUBED (test code = GLUBED) 210 mg/dL 74-106 H Performed by certified router operator pin at [facility] [id number] 20:06:00* Test Item Value Reference Range Interpretation Comments GLUBED (test code = GLUBED) 278 mg/dL 74-106 H Performed by certified router operator pin at [facility] [id number] 16:53:00* Test Item Value Reference Range Interpretation Comments GLUBED (test code = GLUBED) 236 mg/dL 74-106 H Performed by certified router operator pin at [facility] [id number] 11:31:00* Test Item Value Reference Range Interpretation Comments GLUBED (test code = GLUBED) 269 mg/dL 74-106 H Performed by certified router operator pin at [facility] [id number] 10:39:00* Test Item Value Reference Range Interpretation Comments GLUBED (test code = GLUBED) 298 mg/dL 74-106 H Performed by certified router operator pin at [facility] COMPREHENSIVE METABOLIC [id number] 06:29:00* Test Item Value Reference Range Interpretation [...] due to change in reagent. COMPREHENSIVE METABOLIC [id number] 06:10:00* Test Item Value Reference Range Interpretation [...] code = ALKP) IUnit/L 45-117 CBC W/AUTO [id number] 05:48:00* Test Item Value Reference Range Interpretation [...] DIFF REQUIRED (test code = MDIFF) NO [id number] 20:52:00* Test Item Value Reference Range Interpretation Comments GLUBED (test code = GLUBED) 238 mg/dL 74-106 H Performed by certified router operator pin at [facility] [id number] 15:54:00* Test Item Value Reference Range Interpretation Comments GLUBED (test code = GLUBED) 199 mg/dL 74-106 H Performed by certified router operator pin at [facility] [id number] 11:51:00* Test Item Value Reference Range Interpretation Comments GLUBED (test code = GLUBED) 265 mg/dL 74-106 H Performed by certified router operator pin at [facility] [id number] 08:20:00* Test Item Value Reference Range Interpretation Comments GLYCOSYLATED HEMOGLOBIN (HA1C) (test code = GLYHGB) 10.6 % HbA1 4. 8-6.0 H ESTIMATED AVERAGE GLUCOSE (test code = EAG) 258 MG/DL COMPREHENSIVE METABOLIC [id number] 08:11:00* Test Item Value Reference Range Interpretation [...] result is a direct measurement.========= THYROID STIMULATING [id number] 08:11:00* Test Item Value Reference Range Interpretation Comments THYROID STIMULATING HORMONE (test code = TSH) 1.020 uIU/mL 0.36-3.7 4 N TSH REFERENCE RANGES: EUTHYROID: 0.35 - 4.3 mIU/mL HYPO : > 5.5 mIU/mL HYPER : < 0.35 mIU/mL COMPREHENSIVE METABOLIC [id number] 07:53:00* Test Item Value Reference Range Interpretation [...] code = LDL) mg/dL 100-129 THYROID STIMULATING [id number] 07:53:00* Test Item Value Reference Range Interpretation Comments THYROID STIMULATING HORMONE (test code = TSH) uIU/mL 0.36-3.7 4 CBC W/AUTO [id number] 07:51:00* Test Item Value Reference Range Interpretation [...] DIFF REQUIRED (test code = MDIFF) NO [id number] 07:10:00* Test Item Value Reference Range Interpretation Comments GLUBED (test code = GLUBED) 350 mg/dL 74-106 H Performed by certified router operator pin at [facility] DRUGS OF ABUSE SCREEN [id number] 06:10:00* Test Item Value Reference Range Interpretation [...] code = METHAURN) NEGATIVE <300 ng/mL URINALYSIS [id number] 05:29:00* Test Item Value Reference Range Interpretation [...] Urine Source? Clean CatchDRUGS OF ABUSE SCREEN [id number] 05:12:00* Test Item Value Reference Range Interpretation [...] METHADONE (test code = METHAURN) <300 ng/mL [id number] 20:26:00* Test Item Value Reference Range Interpretation Comments GLUBED (test code = GLUBED) 285 mg/dL 74-106 H Performed by certified router operator pin at [facility] [id number] 13:32:00* Test Item Value Reference Range Interpretation Comments GLUBED (test code = GLUBED) 159 mg/dL 74-106 H Performed by certified router operator pin at [facility] BASIC METABOLIC [id number] 09:38:00* Test Item Value Reference Range Interpretation [...] CA) 8.9 mg/dL 8.5-10.1 N HEPATIC FUNCTION [id number] 09:38:00* Test Item Value Reference Range Interpretation [...] reference range due to change in reagent. [id number] 09:38:00* Test Item Value Reference Range Interpretation Comments LIPASE (test code = LIP) 20 U/L 73.0-393.0 L BASIC METABOLIC [id number] 09:30:00* Test Item Value Reference Range Interpretation [...] code = CA) mg/dL 8.5-10.1 HEPATIC FUNCTION [id number] 09:30:00* Test Item Value Reference Range Interpretation [...] TOTAL (test code = ALKP) IUnit/L 45-117 [id number] 09:30:00* Test Item Value Reference Range Interpretation Comments LIPASE (test code = LIP) U/L 73.0-393.0 CBC W/O [id number] 09:13:00* Test Item Value Reference Range Interpretation [...] code = MPV) 10.6 fL 6.7-11.0 N [id number] 07:28:00* Test Item Value Reference Range Interpretation Comments GLUBED (test code = GLUBED) 173 mg/dL 74-106 H Performed by certified router operator pin at [facility] [id number] 20:56:00* Test Item Value Reference Range Interpretation Comments GLUBED (test code = GLUBED) 181 mg/dL 74-106 H Performed by certified router operator pin at [facility] [id number] 16:11:00* Test Item Value Reference Range Interpretation Comments GLUBED (test code = GLUBED) 245 mg/dL 74-106 H Performed by certified router operator pin at [facility] [id number] 11:55:00* Test Item Value Reference Range Interpretation Comments GLUBED (test code = GLUBED) 309 mg/dL 74-106 H Performed by certified router operator pin at [facility] [id number] 08:03:00* Test Item Value Reference Range Interpretation Comments GLUBED (test code = GLUBED) 241 mg/dL 74-106 H Performed by certified router operator pin at [facility] [id number] 00:08:00* Test Item Value Reference Range Interpretation Comments GLUBED (test code = GLUBED) 175 mg/dL 74-106 H Performed by certified router operator pin at [facility] [id number] 20:00:00* Test Item Value Reference Range Interpretation Comments GLUBED (test code = GLUBED) 167 mg/dL 74-106 H Performed by certified router operator pin at [facility] [id number] 16:45:00* Test Item Value Reference Range Interpretation Comments GLUBED (test code = GLUBED) 208 mg/dL 74-106 H Performed by certified router operator pin at [facility] [id number] 16:01:00* Test Item Value Reference Range Interpretation Comments GLUBED (test code = GLUBED) 47 mg/dL 74-106 LL [facility]Notified Nurse~ [id number] 11:44:00* Test Item Value Reference Range Interpretation Comments GLUBED (test code = GLUBED) 317 mg/dL 74-106 H Performed by certified router operator pin at [facility] [id number] 08:20:00* Test Item Value Reference Range Interpretation Comments GLUBED (test code = GLUBED) 271 mg/dL 74-106 H Performed by certified router operator pin at [facility] CBC W/AUTO [id number] 05:45:00* Test Item Value Reference Range Interpretation [...] = MDIFF) NO, ONLY SCAN NEEDED DIFFERENTIAL [id number] 05:45:00* Test Item Value Reference Range Interpretation Comments STAIN ACCEPTABILITY (test code = STN ACCEPTABLE) STAIN ACCEPTABLE POLYCHROMASIA (test code = POLC) 1+ HYPOCHROMIA (test code = HYPO) 1+ PLATELET ESTIMATE (test code = PLTEST) ADEQUATE PLATELET MORPHOLOGY (test code = PLTMORPH) NORMAL CBC W/AUTO [id number] 05:08:00* Test Item Value Reference Range Interpretation [...] = MDIFF) NO, ONLY SCAN NEEDED DIFFERENTIAL [id number] 05:08:00* Test Item Value Reference Range Interpretation Comments STAIN ACCEPTABILITY (test code = STN ACCEPTABLE) CABOT RINGS (test code = CAB) MORPHOLOGY COMMENT (test code = MOC) PLATELET ESTIMATE (test code = PLTEST) PLATELET MORPHOLOGY (test code = PLTMORPH) CBC W/AUTO [id number] 05:08:00* Test Item Value Reference Range Interpretation [...] = MDIFF) NO, ONLY SCAN NEEDED DIFFERENTIAL [id number] 05:08:00* Test Item Value Reference Range Interpretation Comments STAIN ACCEPTABILITY (test code = STN ACCEPTABLE) MORPHOLOGY COMMENT (test code = MOC) PLATELET ESTIMATE (test code = PLTEST) PLATELET MORPHOLOGY (test code = PLTMORPH) CBC W/AUTO [id number] 05:08:00* Test Item Value Reference Range Interpretation [...] = MDIFF) NO, ONLY SCAN NEEDED DIFFERENTIAL [id number] 05:08:00* Test Item Value Reference Range Interpretation Comments STAIN ACCEPTABILITY (test code = STN ACCEPTABLE) MORPHOLOGY COMMENT (test code = MOC) PLATELET ESTIMATE (test code = PLTEST) PLATELET MORPHOLOGY (test code = PLTMORPH) CBC W/AUTO [id number] 05:08:00* Test Item Value Reference Range Interpretation [...] = MDIFF) NO, ONLY SCAN NEEDED DIFFERENTIAL [id number] 05:08:00* Test Item Value Reference Range Interpretation Comments STAIN ACCEPTABILITY (test code = STN ACCEPTABLE) CABOT RINGS (test code = CAB) MORPHOLOGY COMMENT (test code = MOC) PLATELET ESTIMATE (test code = PLTEST) PLATELET MORPHOLOGY (test code = PLTMORPH) COMPREHENSIVE METABOLIC [id number] 05:04:00* Test Item Value Reference Range Interpretation [...] due to change in reagent. COMPREHENSIVE METABOLIC [id number] 04:54:00* Test Item Value Reference Range Interpretation [...] TOTAL (test code = ALKP) IUnit/L 45-117 [id number] 21:00:00* Test Item Value Reference Range Interpretation Comments GLUBED (test code = GLUBED) 334 mg/dL 74-106 H Performed by certified router operator pin at [facility] [id number] 16:10:00* Test Item Value Reference Range Interpretation Comments GLUBED (test code = GLUBED) 102 mg/dL 74-106 N Performed by certified router operator pin at [facility] [id number] 15:59:00* Test Item Value Reference Range Interpretation Comments GLUBED (test code = GLUBED) 339 mg/dL 74-106 H Performed by certified router operator pin at [facility] URINALYSIS [id number] 09:47:00* Test Item Value Reference Range Interpretation [...] 0-2 #/HPF 0-5 Urine Source? Clean CatchURINALYSIS [id number] 09:46:00* Test Item Value Reference Range Interpretation [...] HPF 0-5 Urine Source? Clean CatchBASIC METABOLIC [id number] 04:02:00* Test Item Value Reference Range Interpretation [...] CA) 9.3 mg/dL 8.5-10.1 N HEPATIC FUNCTION [id number] 04:02:00* Test Item Value Reference Range Interpretation [...] reference range due to change in reagent. [id number] 04:02:00* Test Item Value Reference Range Interpretation Comments LIPASE (test code = LIP) 22 U/L 73.0-393.0 L BASIC METABOLIC [id number] 03:53:00* Test Item Value Reference Range Interpretation [...] code = CA) mg/dL 8.5-10.1 HEPATIC FUNCTION [id number] 03:53:00* Test Item Value Reference Range Interpretation [...] TOTAL (test code = ALKP) IUnit/L 45-117 [id number] 03:53:00* Test Item Value Reference Range Interpretation Comments LIPASE (test code = LIP) U/L 73.0-393.0 CBC W/O [id number] 03:46:00* Test Item Value Reference Range Interpretation [...] code = MPV) 10.9 fL 6.7-11.0 N [id number] 17:23:00 RUN DATE: 12/16/17 [facility] PAGE 1 RUN TIME: 1723 Specimen Inqui ry RUN USER: INTERFACE PATIENT: BREE LINDSAY ACCT #: [id number] LOC: JOHNATHAN #: [id number] AGE/SX: 42/M ROOM: 2046 RE12/11/17REG DR: Olegario Diaz MD : 75 BED: A DIS: 12/13/17 STATUS: DIS IN TLOC: SPEC #: [id number] RECD: 12/14/17 STATUS: SHAHRAM NAVARRETEFelisha #: [id number] HUY: 12/11/17- SUBM DR: Kvng Izaguirre MD ENTERED: 12/14/17-1150 SP TYPE: STOMACH OTHR DR: Levi Natarajan i, MD ORDERED: GROSS COPIES TO: Kvng Izaguirre MD [address] [place] [address] Levi Lakhani MD [address], [address] [place] [address] PROCEDURES: GROSS (12/15/17-2404 ) TISSUES: 1. GASTRIC ULCER - BX [...] AND DYSPLASIA NEGATIVE FOR MALIGNANCY MYA/ D (3) 25087, 63967 CONTINUED ON NEXT PAGE RUN DATE: 12/16/17 [place] [facility] PAGE 2 RUN TIME: 1723 Specimen Inquiry RUN USER: INTER FACE SPEC #: [id number] PATIENT: BREE LINDSAY #[id number] (Con tinued) MACROSCOPIC The first specimen is [...] measuring 0.2 cm each. GROSS PERFORMED AT [facility] [address] [place] [address] [phone] MICROSCOPIC MICROSCOPIC PERFORMED AT [facility] All of the stains, including any controls performed, hao aguirre [facility] [address] [place] [address] [phone])[phone] PERFORMING SITE Diagnosis performed at: [facility], [address] [address] Signed SIGNATURE ON FILE Leigh Ann Fuller 12/16/17 1723 END OF REPORT
[2020-01-14] MEDS ORDERED: SODIUM CHLORIDE 0.9% 1000ML 1,000 ML IV STA (19:59)
[2020-01-14] MEDS ORDERED: KETOROLAC TROMETHAMINE 30 MG/ML VIAL IV STA (19:59)
[2020-01-14] MEDS ORDERED: ONDANSETRON HCL INJ 2MG/ML 2ML 2 MG/ML VIAL IV STA (19:59)
[2020-01-14] MEDS ORDERED: SODIUM CHLORIDE FLUSH 10 ML SYR INJ PRN (20:00)
[2020-01-14] MEDS ORDERED: LORAZEPAM INJ 2 MG/ML VIAL IV ONE (20:00)
[2020-01-14] MEDS ORDERED: METOCLOPRAMIDE HCL 10 MG/2ML VIAL IV ONE (20:00)
--- NOTE | 2020-01-14 20:08 | Emergency Department Note ---
History of Present Illnes History of Present Illness Chief Complaint: n/v/abd wall pain History of Present Illness This is a 44 year old male. was doing well prior to this. h/o gastroparesis. pt agrees that this is a typical gastroparesis flare up Historian: Patient Arrival Mode: Car History limited by: condition of the patient Post Anesthesia Care Unit Nurse Required: No Onset (how long ago): hour(s) (12) Location: generalize Quality: sharp Radiation: Reports non-radiation Severity: moderate Onset quality: gradual Duration (how long): hour(s) (12) Timing of current episode: intermittent Progression: worsening Context: Denies recent illness, Denies recent surgery, Denies recent immobilization, Denies recent travel, Denies trauma/injury, Denies new medications, Denies hx of DVT/PE, Denies non-compliance w/ medications Relieving factors: rest Exacerbating factors: movement Associated symptoms: Reports nausea/vomiting Treatments prior to arrival: none Past Medical/Family History Physician Review I have reviewed the patient's past medical and family history. Any updates have been documented here. Past Medical History Recent Fever: No Clinical Suspicion of Infectio: No New/Unexplained Change in Ment: No Past Medical History: Hypertension, Diabetes Other Medical History: GASTROPORESIS Peripheral Neuropathy MARIJUANA ABUSE Past Surgical History: Cholecysctectomy Other Surgery: L-FOOT Surgery - due to infection, seeing wound care Social History Smoking Cessation: Never Smoker Counseling Performed: No Alcohol Use: None Any Illegal Drug Use: No Other Last Tetanus: UNKNOWN Any Pre-Existing Lines (PICC,: No Review of Systems Review of Systems Constitutional: Reports no symptoms EENTM: Reports no symptoms Cardiovascular: Reports no symptoms Respiratory: Reports no symptoms Gastrointestinal: Reports as per HPI Genitourinary: Reports no symptoms Musculoskeletal: Reports no symptoms Integumentary: Reports no symptoms Neurological: Reports no symptoms Psychological: Reports no symptoms Endocrine: Reports no symptoms Hematological/Lymphatic: Reports no symptoms Review of other systems: All other systems negative Physical Exam Related Data Allergies: Coded Allergies: No Known Allergies (Unverified , 07/02/18) Triage Vital Signs Vital Signs Date Time Temp Pulse Resp B/P (MAP) Pulse Ox O2 Delivery O2 Flow Rate FiO2 01/14/20 19:30 97.0 92 18 151/91 97 Room Air Vital signs reviewed: Yes Physical Exam CONSTITUTIONAL Constitutional: Present well-developed, Present well-nourished HENT HENT: Present normocephalic, Present atraumatic, Present mucosae dry, Present nose normal HENT L/R: Present left ext ear normal, Present right ext ear normal EYES Eyes: Reports PERRL, Reports conjunctivae normal NECK Neck: Present ROM normal, Present supple PULMONARY Pulmonary: Present effort normal, Present breath sounds normal CARDIOVASCULAR Cardiovascular: Present regular rhythm, Present heart sounds normal, Present c apillary refill normal, Present normal rate GASTROINTESTINAL Abdominal: Present soft, Present nontender, Present bowel sounds normal, Present other (+muscle spasms) GENITOURINARY Genitourinary: Present exam deferred SKIN Skin: Present warm, Present dry MUSCULOSKELETAL Musculoskeletal: Present ROM normal NEUROLOGICAL Neurological: Present alert, Present oriented x 3, Present no gross motor or sensory deficits PSYCHOLOGICAL Psychological: Present mood/affect normal, Present judgement normal Results Laboratory Lab results reviewed: Yes Laboratory comments bmp normal except yea=457, lft normal Critical Care Time Comments symptoms resolved Assessment & Plan Medical Decision Making MDM see below Reassessment Reassessment time: 22:10 Reassessment symptoms resolved s/p meds Assessment & Plan Final Impression: (1) Gastroparesis due to secondary diabetes (2) Vomiting (3) Dehydration (4) Abdominal muscle strain Depart Disposition: HOME, SELF-CARE Last Vital Signs Date Time Temp Pulse Resp B/P (MAP) Pulse Ox O2 Delivery O2 Flow Rate FiO2 01/14/20 19:30 97.0 92 18 151/91 97 Room Air Home Meds Active Scripts Promethazine Hcl* (PHENERGAN SUPP*) 25 Mg Supp, 1 SUPP VT Q6H PRN for NAUSEA, #12 SUPP 0 Refills Prov:YUMIKO LYNNE MD 12/11/19 Promethazine Hcl (PROMETHAZINE HCL) 25 Mg Tablet, 25 MG PO Q6H, #20 TAB Prov:FILIBERTO ROSENTHAL MD 12/06/19 Promethazine Hcl (PROMETHAZINE HCL) 25 Mg Tablet, 25 MG PO Q6H PRN for nausea and vomiting, #20 TAB 0 Refills Prov:YUMIKO LYNNE MD 11/18/19 Promethazine Hcl (PROMETHAZINE HCL) 25 Mg Tablet, 25 MG PO Q6H PRN for nausea and vomiting, #20 TAB 0 Refills Prov:YUMIKO LYNNE MD 11/12/19 Acetaminophen With Codeine (TYLENOL WITH CODEINE #3 TABLET) 1 Each Tablet, 300 MG PO Q12H PRN for ABDOMINAL PAIN, #10 TAB Prov:JAREK LO NP 10/28/19 Promethazine Hcl (PROMETHAZINE HCL) 25 Mg Tablet, 25 MG PO Q6H for vomiting, #20 TAB Prov:FILIBERTO ROSENTHAL MD 09/21/19 Metoclopramide Hcl (REGLAN) 10 Mg Tablet, 1 TAB PO ACHS for 30 Days Before meals Prov:JAREK LO NP 11/25/18 Pantoprazole Sodium* (PROTONIX) 40 Mg Tablet.dr, 40 MG PO DAILY for 30 Days Prov:JAREK LO NP 11/25/18 Reported Medications Ondansetron Hcl (ONDANSETRON HCL) 4 Mg Tablet, 4 MG SL Q6H PRN for NAUSEA 07/02/18 Insulin Glargine (LANTUS 3ML PEN) 100 Units/1 Ml Inj, 15 UNITS SQ HS 07/02/18 Lisinopril (LISINOPRIL) 5 Mg Tablet, 5 MG PO DAILY 07/02/18 Insulin Aspart (NOVOLOG) 100 Units/1 Ml Inj, 8 UNITS SQ TIDWM 07/02/18 Medications in the ED Sodium Chloride 10 ml PRN PRN INJ IV SITE FLUSH; Start 01/14/20 at 20:00; Stop 02/13/20 at 19:59; Status UNV Sodium Chloride 1,000 ml @ 1,000 mls/hr Q1H STAT IV ; Start 01/14/20 at 19:59; Stop 01/14/20 at 20:58; Status UNV Metoclopramide HCl 10 mg ONCE ONCE IV ; Start 01/14/20 at 20:00; Stop 01/14/20 at 20:01; Status UNV Ondansetron HCl 8 mg NOW STAT IV ; Start 01/14/20 at 19:59; Stop 01/14/20 at 20:00; Status UNV Ketorolac Tromethamine 30 mg ONCE STAT IV ; Start 01/14/20 at 19:59; Stop 01/14/20 at 20:00; Status UNV Lorazepam 1 mg ONCE ONCE IV ; Start 01/14/20 at 20:00; Stop 01/14/20 at 20:01; Status UNV MIKE STONE Jan 14, 2020 20:08
[2020-01-14] MEDS ORDERED: ONDANSETRON HCL INJ 2MG/ML 2ML 2 MG/ML VIAL ONE (20:44)
[2020-01-14] MEDS ORDERED: METOCLOPRAMIDE HCL 10 MG/2ML VIAL ONE (20:44)
[2020-01-14] MEDS ORDERED: KETOROLAC TROMETHAMINE 30 MG/ML VIAL ONE (20:44)
[2020-01-14] MEDS ORDERED: SODIUM CHLORIDE 0.9% 1000ML 1,000 ML ONE (20:45)
[2020-01-14] MEDS ORDERED: LORAZEPAM INJ 2 MG/ML VIAL ONE (20:45)
[2020-01-14 20:51] LABS: BASOPHILS # (AUTO) 0.1 (0.0-0.1); EOSINOPHILS # (AUTO) 0.2 (0.0-0.4); EOSINOPHILS % 2.7 % (0.0-6.0); HEMATOCRIT 36.1 % (38.2-49.6); HEMOGLOBIN 11.4 g/dL (14.0-18.0); LYMPHOCYTES # (AUTO) 1.4 (1.0-3.2); LYMPHOCYTES % 17.4 % (18.0-39.1); MEAN CORPUSCULAR HGB CONC 31.6 g/dL (31-35); MEAN CORPUSCULAR VOLUME 91.9 fL (81-99); MONOCYTES # (AUTO) 0.8 (0.2-0.8); NEUTROPHILS # (AUTO) 5.6 (2.1-6.9); NEUTROPHILS % 68.7 % (38.7-80.0); PLATELET COUNT 251 x10e3/uL (140-360); RED BLOOD COUNT 3.93 x10e6/uL (4.3-5.7); RED CELL DISTRIBUTION WIDTH 13.2 % (11.7-14.4)
== END 2020-01-14 22:30 | disposition home or self-care (01) ==
LOC: FSED 19:32
DX: E11.43 Type 2 diabetes mellitus with diabetic autonomic (poly)neuropathy (principal); K31.84 Gastroparesis; R11.2 Nausea with vomiting, unspecified; E86.0 Dehydration; S39.011A Strain of muscle, fascia and tendon of abdomen, initial encounter
CPT/HCPCS: 36415; 85025; 99283; J1885; J2060; J2405; J2765; J7030

== ENCOUNTER 2020-01-19 15:58 | Emergency (ER) | payer MEDICARE ==
[~2020-01-19] VITALS: Ht 185.4 cm; Wt 95.3 kg
[2020-01-19] MEDS ORDERED: FAMOTIDINE 20 MG/2 ML VIAL IV STA (16:35)
[2020-01-19] MEDS ORDERED: PROMETHAZINE 25MG/ NS 50ML (IV) IV ONE (16:45)
[2020-01-19] MEDS ORDERED: HALOPERIDOL LACTATE 5 MG/ML VIAL IV ONE ×2 (16:45→17:15)
[2020-01-19] MEDS ORDERED: SODIUM CHLORIDE 0.9% 1000ML 1,000 ML IV SCH (17:00)
[2020-01-19 19:01] VITALS: BP 183/96
--- OUTSIDE RECORDS SUMMARY | 2020-02-02 15:38 | XMS REPORT | Clinical Summary ---
Author Author DEMARIO [facility] Address Unknown Phone Unavailable Care Team Providers Care Director Of Housing Name Role Phone Pcp, No PCP Unavailable [...] Signs Not on file Plan of Treatment Health Maintenance Due Date Last Done Comments MEDICARE ANNUAL WELLNESS 09/28/2017 (YEAR 2 or FIRST YEAR if no IPPE) INFLUENZA VACCINE (#1) 2019 LIPID PANEL 12/14/2023 12/13/2018 Results Not on fileafter 01/18/2019 Insurance Type Payer Benefit Subscriber ID Effective Phone Address Plan / Dates Group Medicare MEDICARE MEDICARE A [id number] 2016-P [place] [phone] Advance Directives For more information, please contact: [phone] Date Inactivated Comments Code Status Date Activated 12/15/2018 12:01 AM Full Code 12/13/2018 10:07 AM This code status was determined by: Patient
--- OUTSIDE RECORDS SUMMARY | 2020-02-02 15:38 | XMS REPORT | Clinical Summary ---
Author Author [facility] Address Unknown Phone Unavailable Care Team Providers Care Information Assurance Manager Name Role Phone Riley Rosa DO PCP [...] constipation 12/29/2019 Telemedicine Gastroenterology 12/16/2019 Travel after 01/18/2019 Surgical History Surgery Date Site/Laterality Comments UPPER [...] Not on file Last Filed Vital Signs Reading Time Taken [...] Health Maintenance Due Date Last Done Comments DIABETES: RETINAL EYE 11/25/1985 EXAM DIABETIC FOOT EXAM 11/25/1985 URINE MICROALBUMIN 11/25/1985 INFLUENZA VACCINE 10/29/2019 Results Not on fileafter 01/18/2019 Insurance Type Payer Benefit Subscriber ID Effective Phone Address Plan / Dates Group Medicare MEDICARE MEDICARE [id number] 2016-P ZAFAR, PART A AND resent [place] Advance Directives For more information, please contact: [phone] 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
--- OUTSIDE RECORDS SUMMARY | 2020-02-02 15:43 | XMS REPORT | Continuity of Care Document ---
Author Author [facility] t Organization [facility] Address [address] [place] [address] Phone Unavailable Care Team Providers Care Tooth Clerk Name Role Phone Chao BECKMAN PCP Gregory Green MD Attphys Mary Ann LYNNE ALEISHA Attphys Unavailable ISACC JAVED Attphys Unavailable JEANNIE QUINONES MD Attphys Unavailable DAMISAEL, Keeley MERCER Attphys Unavailable NEIL PEREZ Attphys Unavailable Dasia GIBSON, Zaina Attphys GADICHERLA, MURALINATH DORETHA Attphys Unavailable TAVIA GARCIA Attphys Unavailable ISACC JAVED Admphys Unavailable DAHU, S JIRIES Admphys Unavailable GADICHERLA, MURALINATH DORETHA Admphys Unavailable Payers Payer Name Policy Type Policy Number Effective Date Expiration Date S ource Medicare A & B [id number] 2019 00:00:[address] [facility] MEDICAREMEDICARE PART A AND [id number] 2016-Nancy [id number] 2016 00:00:00 Zafar Schulz Cdc Review Covid19 [id number] [facility] Problems Condition Name Condition Details Condition Category Status Onset Date Resolution Date Last Treatment Date Treating Clinician Comments Source Type II diabetes mellitus with peripheral autonomic ne uropathy Type II diabetes mellitus with peripheral autonomic neuropathy Disease Active 2019-12-29 00:00:00 Zafar ragland Chronic constipation Chronic constipation Disease Active 00:00:00 Zafar Schulz Gastroparesis Gastroparesis Disease Active 2018-12-13 00:00:00 [facility] Diabetic gastroparesis associated with type 2 diabetes mellitus Diabetic gastroparesis associated with type 2 diabetes mellitus Problem Active [facility] Upper gastrointestinal hemorrhage Upper GI bleed Problem Active [facility] Dehydration Dehydration Problem Active [facility] Nausea and vomiting Nausea & vomiting Problem Active [facility] Hematemesis Problem Active [facility] Epigastric pain Problem Active [facility] Abdominal pain Problem Active [facility] Vomiting Problem Active [facility] Tachycardia Problem Active [facility] Hyperglycemia Problem Active [facility] Colitis Problem Active [facility] Intractable vomiting with nausea Problem Active [facility] Abnormal kidney function Problem Active [facility] Gastroparesis Problem Active [facility] Hypertensive crisis Problem Active [facility] Cannabis dependence Problem Active [facility] Uncontrolled hypertension Problem Active [facility] Gastroparesis due to secondary diabetes Problem Active [facility] Strain of abdominal muscle Problem Active [facility] Allergies, Adverse Reactions, Alerts Allergy Name Allergy Type Status Severity Reaction(s) Onset Date Inacti ve Date Treating Clinician Comments Source No Known Allergies DA Active U 2019-02-13 00:00:00 [facility] No Known Allergies DA Active U 2019-02-06 00:00:00 [facility] No Known Allergies DA Active U 2018-05-11 00:00:00 [facility] No Known Allergies DA Active U 2018-02-26 00:00:00 [facility] No Known Allergies DA Active U 2018-01-14 00:00:00 [facility] No Known Allergies DA Active U 2017-12-15 00:00:00 [facility] No Known Allergies DA Active U 2017-10-09 00:00:00 [facility] Family History Family Member Diagnosis Comments Start Date Stop Date Source Natural father No Known Problems Jessenia ston Bahai Natural mother Diabetes [facility] Natural mother Diabetes [facility] Paternal uncle Diabetes [facility] Family member Celiac disease [place] Family member Colon cancer [facility] ethodist Family member Esophageal cancer [facility] Bahai Family member Inflammatory bowel disease [facility] Family member Stomach cancer [facility] Maternal uncle Diabetes [facility] Social History Social Habit Start Date Stop Date Quantity Comments Source History of tobacco use Current smoker [facility] History SDOH Alcohol Std Drinks [facility] History SDOH Alcohol Binge [facility] Tobacco use and exposure 2018-12-13 00:00:00 2018-12-13 00:00:00 Jannethe r used [facility] Alcohol intake 2018-12-13 00:00:00 2018-12-13 00:00:00 Current non-drinker of alcohol (finding) [facility] History SDOH Alcohol Frequency 2018-12-13 00:00:00 2018-12-13 00:00:0 0 1 [facility] Sex Assigned At 1975 00:00:00 1975 00:00:00 Male [facility] Smoking Status Start Date Stop Date Source Former smoker 2019-12-29 00:00:00 2019-12-29 00:00:00 Zafar Bahai Never smoker [facility] Medications Ordered Medication Name Filled Medication Name Start Date Stop Da te Current Medication? Ordering Clinician Indication Dosage Frequency Signature (SIG) Comments Components Source traMADoL (ULTRAM) 50 mg tablet 2019-12-29 11:31:36 Yes acute pain 50mg Q.[id number] Take 50 mg by mouth 3 (three) times a day .acute pain. Zafar Schulz metoclopramide (REGLAN) 10 MG tablet 2019-12-29 11:31:36 Ye s 10mg Q.25D Take 10 mg by mouth 4 (four) times a day. Zafar Schulz insulin ASPART (NovoLOG) 100 unit/mL injection 2019-12-29 11:31: 36 Yes Q.[id number] Inject under the skin 3 (thr ee) [...] by mouth 2 (two) times a day. Zafar Schulz dicyclomine (BENTYL) 20 mg tablet 2019-12-29 11:31:35 Ye s 20mg Q.[id number] Take 20 mg by mouth 3 (three) times a day. Zafar Schulz prucalopride 2 mg tablet 2019-12-29 00:00:00 Yes 2mg QD Take 1 tablet (2 mg total) by mouth daily. Zafar Tijerina [place] Promethazine Hcl (Phenergan Supp*) 25 Mg SUPP Prometha zine Hcl (Phenergan Supp*) 25 Mg SUPP 2019-12-11 19:38:00 Yes 1 E very 6 Hours as needed for Nausea [facility] Promethazine Hcl Promethazine Hcl 2019-12-06 20:11:00 Yes 25 Every 6 Hours [facility] Promethazine Hcl Promethazine Hcl 2019-11-18 01:18:00 Yes 25 Every 6 Hours as needed for Nausea And Vomiting [facility] Promethazine Hcl Promethazine Hcl 2019-11-12 00:25:00 Yes 25 Every 6 Hours as needed for Nausea And Vomiting [facility] Acetaminophen With Codeine (Tylenol With Codeine #3 Ta blet) 1 Each TABLET Acetaminophen With Codeine (Tylenol With Codeine #3 Tablet) 1 Each TABLET 2019-10-28 10:59:00 Yes 300 Every 12 Jessenia rs as needed for Abdominal Pain [facility] Promethazine Hcl Promethazine Hcl 2019-09-21 09:25:00 Yes 25 Every 6 Hours for Vomiting [facility] Losartan Potassium Losartan Potassium 2019-08-25 13:46:00 2019-08-30 5 00:00:00 No 50 Daily [facility] Acetaminophen With Codeine (Tylenol With Codeine #3 Ta blet) 1 Each TABLET Acetaminophen With Codeine (Tylenol With Codeine #3 Tablet) 1 Each TABLET 2019-07-10 18:44:00 2019-09-22 00:00:00 No 300 Every 6 Hours as needed for Pain [facility] Promethazine Hcl Promethazine Hcl 2019-07-06 13:42:00 2019-07-10 00:00 :00 No 25 Three Times A Day [facility] insulin aspart U-100 (NOVOLOG) 100 unit/mL injection 2 22:01:49 Yes type 2 diabetes mellitus 5U Inj ect 5 Units subcutaneously 3 (three) times daily before meals. [facility] insulin glargine (LANTUS) 100 unit/mL injection 2018-12-14 2 2:01:49 Yes type 2 diabetes mellitus 25U QD Inject 25 Units subcutaneously nightly Use as directed . [facility] dicyclomine (BENTYL) 10 MG capsule 2018-12-14 22:01:49 Y es 10mg Q.[id number] Take 10 mg by mouth 3 (three) times daily. [facility] metoclopramide HCl (REGLAN) 10 MG tablet 2018-12-14 22:01:49 Yes diabetic gastroparesis 10mg Take 10 mg by mouth 4 (four) times daily as needed for Nausea. [facility] pantoprazole (PROTONIX) 20 MG tablet 2018-12-14 22:01:49 Ye s 20mg Take 20 mg by mouth 2 (two) times daily before meals. [facility] traMADol (ULTRAM) 50 mg tablet 2018-12-14 22:01:49 Yes 50mg Q.[id number] Take 50 mg by mouth 3 (three) times daily. [facility] Ondansetron (Ondansetron Odt) 8 Mg TAB.[facility] Ondanset calli (Ondansetron Odt) 8 Mg TAB.RAPDIS 2018-12-12 19:01:00 2019-07-10 00:00:00 No 4 Three Times A Day as needed for Nausea, Vomiting [facility] Promethazine Hcl (Phenergan Supp*) 25 Mg SUPP Prometha zine Hcl (Phenergan Supp*) 25 Mg SUPP 2018-12-12 19:01:00 2019-07-10 00:00:00 No 25 Three Times A Day as needed for Nausea, Vomiting [facility] Metoclopramide Hcl (Reglan) 10 Mg TABLET Metoclopramid e Hcl (Reglan) 10 Mg TABLET 2018-11-25 06:19:00 Yes 1 Before Meals And At Bedtime [facility] Pantoprazole Sodium (Protonix) 40 Mg TABLET. Pantopr azole Sodium (Protonix) 40 Mg TABLET. 2018-11-25 06:19:00 Yes 40 Daily [facility] Amlodipine Besylate (Norvasc) 10 Mg TAB Amlodipine Besylate (Norvasc) 10 Mg TAB 2018-11-25 06:19:00 2019-07-09 00:00:00 No 10 Daily [facility] Insulin Aspart (Novolog) 100 Units/1 Ml INJ Insulin As part (Novolog) 100 Units/1 Ml INJ Yes 8 Three Times Daily With Meals [facility] Insulin Glargine (Lantus 3ML Pen) 100 Units/1 Ml INJ I nsulin Glargine (Lantus 3ML Pen) 100 Units/1 Ml INJ Yes 15 Bedtime [facility] Lisinopril Lisinopril Yes 5 Daily [facility] Ondansetron Hcl Ondansetron Hcl Yes 4 Every 6 Hours as needed for Nausea [facility] Dicyclomine Hcl Dicyclomine Hcl 2019-07-10 00:00:00 No 10 Three Times A Day [facility] Promethazine Hcl Promethazine Hcl 2019-07-10 00:00:00 No 25 Three Times A Day as needed for Nausea [facility] Tramadol Hcl (Ultram 50MG*) 50 Mg TAB Tramadol Hcl (Ultram 50MG* ) 50 Mg TAB 2019-07-10 00:00:00 No 1 Three Times A Day as needed for Mild Pain (1-3) Or Fever>100.8 [facility] Glimepiride Glimepiride 2019-07-09 00:00:00 No 2 D aily [facility] Metoclopramide Hcl (Reglan) 10 Mg TABLET Metoclopramid e Hcl (Reglan) 10 Mg TABLET 2018-11-25 00:00:00 No 1 Bedtime [facility] Metoclopramide Hcl Metoclopramide Hcl 2018-11-25 00:00:00 No 10 Three Times A Day [facility] Metoclopramide Hcl (Reglan) 10 Mg TABLET Metoclopramid e Hcl (Reglan) 10 Mg TABLET 2018-11-25 00:00:00 No 1 Three Times A Day [facility] Pantoprazole Sodium (Protonix) 40 Mg TABLET. Pantopr azole Sodium (Protonix) 40 Mg TABLET. 2018-11-25 00:00:00 No 40 Daily [facility] Pantoprazole Sodium (Protonix) 40 Mg TABLET. Pantopr azole Sodium (Protonix) 40 Mg TABLET. 2018-11-25 00:00:00 No 40 Twice A Day [facility] Vital Signs Vital Name Observation Time Observation Value Comments Source Weight 2020-01-14 19:30:00 210 [lb_av] [facility] BMI (Body Mass Index) 2020-01-14 19:30:00 27.7 kg/m2 [facility] Body height 2019-12-29 11:27:00 185.4 cm Zafar Schulz Body weight 2019-12-29 11:27:00 83.008 kg Zafar Schulz BMI 2019-12-29 11:27:00 24.14 kg/m2 Stephen Bahai Weight 2019-12-17 17:40:00 210 [lb_av] [facility] BMI (Body Mass Index) 2019-12-17 17:40:00 27.7 kg/m2 [facility] Body Temperature 2019-12-11 19:57:00 99.4 [degF] [facility] Weight 2019-12-11 16:46:00 183 [lb_av] [facility] BMI (Body Mass Index) 2019-12-11 16:46:00 24.1 kg/m2 [facility] Weight 2019-12-06 19:15:00 183 [lb_av] [facility] BMI (Body Mass Index) 2019-12-06 19:15:00 24.1 kg/m2 [facility] Weight 2019-11-17 21:10:00 183 [lb_av] [facility] BMI (Body Mass Index) 2019-11-17 21:10:00 24.1 kg/m2 [facility] Body Temperature 2019-11-12 00:41:00 97.5 [degF] [facility] Weight 2019-11-11 22:05:00 183 [lb_av] [facility] BMI (Body Mass Index) 2019-11-11 22:05:00 24.1 kg/m2 [facility] Weight 2019-11-07 16:35:00 183 [lb_av] [facility] BMI (Body Mass Index) 2019-11-07 16:35:00 24.1 kg/m2 [facility] Body Temperature 2019-10-28 16:21:00 98.1 [degF] [facility] Weight 2019-10-27 17:29:00 184 [lb_av] [facility] BMI (Body Mass Index) 2019-10-27 17:29:00 24.3 kg/m2 [facility] Body Temperature 2019-10-06 11:55:00 98.0 [degF] [facility] BMI (Body Mass Index) 2019-10-06 00:13:00 25.7 kg/m2 [facility] Weight 2019-10-03 16:16:00 195 [lb_av] [facility] Weight 2019-09-30 07:59:00 195 [lb_av] [facility] BMI (Body Mass Index) 2019-09-30 07:59:00 25.7 kg/m2 [facility] Body Temperature 2019-09-29 23:05:00 99.3 [degF] [facility] Weight 2019-09-29 20:31:00 195 [lb_av] [facility] BMI (Body Mass Index) 2019-09-29 20:31:00 25.7 kg/m2 [facility] Body Temperature 2019-09-24 07:56:00 97.9 [degF] [facility] BMI (Body Mass Index) 2019-09-24 00:04:00 25.7 kg/m2 [facility] Weight 2019-09-22 07:12:00 195 [lb_av] [facility] Weight 2019-09-21 07:05:00 193 [lb_av] [facility] BMI (Body Mass Index) 2019-09-21 07:05:00 25.5 kg/m2 [facility] Body Temperature 2019-09-20 23:35:00 97.7 [degF] [facility] Weight 2019-09-20 21:36:00 193 [lb_av] [facility] BMI (Body Mass Index) 2019-09-20 21:36:00 25.5 kg/m2 [facility] Weight 2019-08-23 17:53:00 195 [lb_av] [facility] BMI (Body Mass Index) 2019-08-23 17:53:00 25.7 kg/m2 [facility] Body Temperature 2019-07-24 12:23:00 97.6 [degF] [facility] Procedures Procedure Date / Time Performed Performing Clinician [facility] EMERGENCY DEPT VISIT 2019-11-17 00:00:00 [facility] EXCISION OF DUODENUM, ENDO, DIAGN 2019-10-05 00:00:00 [facility] EXCISION OF STOMACH, PYLORUS, ENDO, DIAGN 2019-10-05 00:00:00 [facility] Computed tomography of abdomen and pelvis with contrast 00:00:00 [facility] Computed tomography of abdomen and pelvis with contrast 00:00:00 [facility] EMERGENCY DEPT VISIT 2019-09-21 00:00:00 [facility] EMERGENCY DEPT VISIT 2019-09-20 00:00:00 [facility] Plan of Care Planned Activity Planned Date Details Comments Source Future Scheduled Test 2023-12-14 00:00:00 Lipid panel (proce dure) [code = 94227287] [facility] Future Scheduled Test 2019-11-29 00:00:00 INFLUENZA VACCINE (#1) [code = INFLUENZA VACCINE (#1)] [facility] Future Scheduled Test 2019-10-29 00:00:00 INFLUENZA VACCINE [code = INFLUENZA VACCINE] [facility] 2017[facility]09[facility]28 00:00:00 MEDICARE ANNUAL WE LLNESS (YEAR 2 or FIRST YEAR if no IPPE) [code = MEDICARE ANNUAL WELLNESS (YEAR 2 or FIRST YEAR if no IPPE)] [facility] Future Scheduled Test 1985-11-25 00:00:00 DIABETES: RETINAL EYE EXAM [code = DIABETES: RETINAL EYE EXAM] Zafar Bahai Future Scheduled Test 1985-11-25 00:00:00 DIABETIC FOOT EXAM [code = DIABETIC FOOT EXAM] Zafar Schulz Future Scheduled Test 1985-11-25 00:00:00 URINE MICROALBUMIN [code = URINE MICROALBUMIN] Zafar Schulz Instructions [place] Diet - Adult [facility] Instructions Dehydration - Adult [facility] Instructions Vomiting - Adult [facility] Encounters Start Date/Time End Date/Time Encounter Type Admission Type Attendi [facility] Care Department Encounter ID Source 2020-01-14 19:32:00 2020-01-14 22:30:00 Departed Emergency Room [facility] [id number] [facility] 2019-12-29 00:00:00 2019-12-29 00:00:00 Outpatient [facility] [id number] [facility] 2019-12-17 17:45:00 2019-12-17 20:29:00 Departed Emergency Room [facility] [id number] [facility] 2019-12-11 17:08:00 2019-12-11 19:59:00 Departed Emergency Room [facility] [id number] [facility] 2019-12-06 19:20:00 2019-12-06 22:48:00 Departed Emergency Room [facility] [id number] [facility] 2019-11-17 21:49:00 2019-11-18 01:35:00 Departed Emergency Room [facility] [id number] [facility] [place] 2019-11-11 22:15:00 2019-11-12 00:38:00 Departed Emergency Room 1 ALEISHA LYNNE [facility] [id number] [facility] [place] 2019-11-07 16:24:00 2019-11-07 19:30:00 Departed Emergency Room [facility] [id number] [facility] 2019-10-27 14:43:00 2019-10-28 17:55:00 Discharged Inpatient [facility] [id number] [facility] 2019-10-04 00:35:00 2019-10-06 12:14:00 Discharged Inpatient 1 ISACC JAVED [facility] [id number] [facility] [place] 2019-09-30 08:15:00 2019-09-30 14:10:00 Departed Emergency Room 1 JEANNIE QUINONES MD [facility] [id number] [facility] 2019-09-29 20:40:00 2019-09-29 23:05:00 Departed Emergency Room [facility] [id number] [facility] 2019-09-22 09:41:00 2019-09-24 08:22:00 Discharged Inpatient 1 RUSLAN CARTER [facility] [id number] [facility] [place] 2019-09-21 07:02:00 2019-09-21 11:05:00 Departed Emergency Room [facility] [id number] [facility] 2019-09-20 20:47:00 2019-09-20 23:35:00 Departed Emergency Room [facility] [id number] [facility] 2019-08-24 08:10:00 2019-08-25 14:00:00 Discharged Inpatient (obs) [facility] [id number] [facility] 2019-08-23 17:24:00 2019-08-23 19:35:00 Departed Emergency Room [facility] [id number] [facility] 2019-07-23 06:38:00 2019-07-24 13:59:00 Discharged Inpatient 1 NEIL PEREZ [facility] [id number] [facility] 2019-07-09 15:58:00 2019-07-10 18:57:00 Discharged Inpatient (obs) [facility] [id number] [facility] 2019-07-06 11:09:00 2019-07-06 14:11:00 Departed Emergency Room [facility] [id number] [facility] 2019-05-31 00:00:00 2019-05-31 00:00:00 Transition of Care Zaina Forman [id number] 2018-12-13 06:33:00 2018-12-13 08:35:00 Departed Emergency Room [facility] [id number] [facility] 2018-12-12 17:07:00 2018-12-12 19:35:00 Departed Emergency Room [facility] [id number] [facility] 2018-11-22 18:24:00 2018-11-25 16:05:00 Discharged Inpatient 1 ISACC JAVED [facility] [id number] [facility] 2018-09-28 12:15:00 2018-09-28 16:32:00 Departed Emergency Room [facility] [id number] [facility] 2018-09-20 08:55:00 2018-09-20 08:55:00 Registered Clinic 3 TAVIA GARCIA [facility] [id number] [facility] 2018-08-10 13:35:00 2018-08-10 17:00:00 Departed Emergency Room [facility] [id number] [facility] 2018-07-05 11:53:00 2018-07-07 08:40:00 Discharged Inpatient [facility] [id number] [facility] 2018-06-23 07:38:00 2018-06-23 07:38:00 Registered Clinic 3 TAVIA GARCIA [facility] [id number] [facility] Results Test Description Test Time Test Comments Results Result Comments Source Blood leukocytes automated count (number/volume) 2020-01-14 20:33:00 Test Item White Blood Count (test code = 6690-2) 8.21 4.8-10.8 [facility] count (number/volume)2020-01-14 20:33:00* Test Item Value Reference Range Interpretation Comments Red Blood Count (test code = 789-8) 3.93 4.3-5.7 [facility] measurement (moles/volume)2020-01-14 20:33:00* Test Item Value Reference Range Interpretation Comments Hemoglobin (test code = 69225-9) 11.4 14.0-18.0 [facility] hematocrit (volume fraction)2020-01-14 20:33:00* Test Item Value Reference Range Interpretation Comments Hematocrit (test code = 4544-3) 36.1 38.2-49.6 [facility] HospitalAutomated erythrocyte mean corpuscular hraygx3431-62-77 20:33:00* Test Item Value Reference Range Interpretation Comments Mean Corpuscular Volume (test code = 787-2) 91.9 81-99 [facility] HospitalAutomated erythrocyte mean corpuscular hemoglobin (mass per erythrocyte)2020-01-14 20:33:00* Test Item Value Reference Range Interpretation Comments Mean Corpuscular Hemoglobin (test code = 785-6) 29.0 28-32 [facility] HospitalAutomated erythrocyte mean corpuscular hemoglobin concentration measurement (mass/volume)2020-01-14 20:33:00* Test Item Value Reference Range Interpretation Comments Mean Corpuscular Hemoglobin Concent (test code = 786-4) 31.6 31-35 [facility] HospitalRDW FzjNx-Uqy3929-52-17 20:33:00* Test Item Value Reference Range Interpretation Comments Red Cell Distribution Width (test code = 46447-1) 13.2 11.7 -14.4 [facility] HospitalAutomated blood platelet count (count/volume)2020-01-14 20:33:00* Test Item Value Reference Range Interpretation Comments Platelet Count (test code = 777-3) 251 140-360 [facility] HospitalAutomated blood segmented neutrophil count as percentage of total deugktykod1010-59-44 20:33:00* Test Item Value Reference Range Interpretation Comments Neutrophils (%) (Auto) (test code = 01631-9) 68.7 38.7-80.0 [facility] HospitalAutomated blood lymphocyte count as percentage ot total orbnovkkyb5516-05-59 20:33:00* Test Item Value Reference Range Interpretation Comments Lymphocytes (%) (Auto) (test code = 736-9) 17.4 18.0-39.1 [facility] HospitalAutomated blood monocyte count as percentage of total axmeabkhrp4427-66-25 20:33:00* Test Item Value Reference Range Interpretation Comments Monocytes (%) (Auto) (test code = 5905-5) 10.0 4.4-11.3 [facility] HospitalAutomated blood eosinophil count as percentage of total srtkzywvfz5708-02-80 20:33:00* Test Item Value Reference Range Interpretation Comments Eosinophils (%) (Auto) (test code = 713-8) 2.7 0.0-6.0 [facility] HospitalAutomated blood basophil count as percentage of total kqjtnvctes9782-28-50 20:33:00* Test Item Value Reference Range Interpretation Comments Basophils (%) (Auto) (test code = 706-2) 1.0 0.0-1.0 [facility] HospitalFluoroscopic procedure less than one hour gqkioemr8941-67-44 20:33:00* Test Item Value Reference Range Interpretation Comments IM GRANULOCYTES % (test code = IM GRANULOCYTES %) 0.2 0.0- 1.0 [facility] HospitalAutomated blood neutrophil count 2020-01-14 20:33:00* Test Item Value Reference Range Interpretation Comments Neutrophils # (Auto) (test code = 751-8) 5.6 2.1-6.9 [facility] HospitalBlood lymphocytes count (number/volume) 2020-01-14 20:33:00* Test Item Value Reference Range Interpretation Comments Lymphocytes # (Auto) (test code = 68576-5) 1.4 1.0-3.2 [facility] monocytes automated count (number/volume)2020-01-14 20:33:00* Test Item Value Reference Range Interpretation Comments Monocytes # (Auto) (test code = 742-7) 0.8 0.2-0.8 [facility] HospitalAutomated blood eosinophil count 2020-01-14 20:33:00* Test Item Value Reference Range Interpretation Comments Eosinophils # (Auto) (test code = 711-2) 0.2 0.0-0.4 [facility] HospitalAutomated blood basophil count (count/volume)2020-01-14 20:33:00* Test Item Value Reference Range Interpretation Comments Basophils # (Auto) (test code = 704-7) 0.1 0.0-0.1 [facility] HospitalFluoroscopic procedure less than one hour mjmitruy9745-69-06 20:33:00* Test Item Value Reference Range Interpretation Comments Absolute Immature Granulocyte (auto (zeenat t code = Absolute Immature Granulocyte (auto) 0.02 0-0.1 [facility] leukocytes automated count (number/volume)2019-12-11 17:15:00* Test Item Value Reference Range Interpretation Comments White Blood Count (test code = 6690-2) 5.98 4.8-10.8 [facility] erythrocytes automated count (number/volume)2019-12-11 17:15:00* Test Item Value Reference Range Interpretation Comments Red Blood Count (test code = 789-8) 3.79 4.3-5.7 [facility] hemoglobin measurement (moles/volume)2019-12-11 17:15:00* Test Item Value Reference Range Interpretation Comments Hemoglobin (test code = 49864-8) 11.1 14.0-18.0 [facility] HospitalAutomated blood hematocrit (volume fraction)2019-12-11 17:15:00* Test Item Value Reference Range Interpretation Comments Hematocrit (test code = 4544-3) 34.9 38.2-49.6 [facility] HospitalAutomated erythrocyte mean corpuscular iwmkme5257-09-90 17:15:00* Test Item Value Reference Range Interpretation Comments Mean Corpuscular Volume (test code = 787-2) 92.1 81-99 [facility] HospitalAutomated erythrocyte mean corpuscular hemoglobin (mass per erythrocyte)2019-12-11 17:15:00* Test Item Value Reference Range Interpretation Comments Mean Corpuscular Hemoglobin (test code = 785-6) 29.3 28-32 [facility] HospitalAutomated erythrocyte mean corpuscular hemoglobin concentration measurement (mass/volume)2019-12-11 17:15:00* Test Item Value Reference Range Interpretation Comments Mean Corpuscular Hemoglobin Concent (test code = 786-4) 31.8 31-35 [facility] HospitalRDW BbkLx-Ofm6887-27-13 17:15:00* Test Item Value Reference Range Interpretation Comments Red Cell Distribution Width (test code = 66490-7) 14.0 11.7 -14.4 [facility] HospitalAutomated blood platelet count (count/volume)2019-12-11 17:15:00* Test Item Value Reference Range Interpretation Comments Platelet Count (test code = 777-3) 200 140-360 [facility] neutrophil count as percentage of total kzsnziairw4822-39-02 17:15:00* Test Item Value Reference Range Interpretation Comments Neutrophils (%) (Auto) (test code = 89317-0) 60.7 38.7-80.0 [facility] HospitalAutatrium health kannapolised blood lymphocyte count as percentage ot total cihrylxizv5025-70-20 17:15:00* Test Item Value Reference Range Interpretation Comments Lymphocytes (%) (Auto) (test code = 736-9) 24.7 18.0-39.1 [facility] HospitalAutomated blood monocyte count as percentage of total przqsbttop7904-51-48 17:15:00* Test Item Value Reference Range Interpretation Comments Monocytes (%) (Auto) (test code = 5905-5) 9.9 4.4-11.3 [facility] HospitalAutomated blood eosinophil count as percentage of total gsheoedrdg3154-58-25 17:15:00* Test Item Value Reference Range Interpretation Comments Eosinophils (%) (Auto) (test code = 713-8) 3.2 0.0-6.0 [facility] HospitalAutomated blood basophil count as percentage of total xxzngiypaf3465-52-39 17:15:00* Test Item Value Reference Range Interpretation Comments Basophils (%) (Auto) (test code = 706-2) 1.2 0.0-1.0 [facility] HospitalFluoroscopic procedure less than one hour wqlqdjjs3714-36-61 17:15:00* Test Item Value Reference Range Interpretation Comments IM GRANULOCYTES % (test code = IM GRANULOCYTES %) 0.3 0.0- 1.0 [facility] HospitalAutomated blood neutrophil count 2019-12-11 17:15:00* Test Item Value Reference Range Interpretation Comments Neutrophils # (Auto) (test code = 751-8) 3.6 2.1-6.9 [facility] HospitalBlood lymphocytes count (number/volume) 2019-12-11 17:15:00* Test Item Value Reference Range Interpretation Comments Lymphocytes # (Auto) (test code = 05263-0) 1.5 1.0-3.2 [facility] HospitalBlood monocytes automated count (number/volume)2019-12-11 17:15:00* Test Item Value Reference Range Interpretation Comments Monocytes # (Auto) (test code = 742-7) 0.6 0.2-0.8 [facility] HospitalAutomated blood eosinophil count 2019-12-11 17:15:00* Test Item Value Reference Range Interpretation Comments Eosinophils # (Auto) (test code = 711-2) 0.2 0.0-0.4 [facility] HospitalAutomated blood basophil count (count/volume)2019-12-11 17:15:00* Test Item Value Reference Range Interpretation Comments Basophils # (Auto) (test code = 704-7) 0.1 0.0-0.1 [facility] HospitalFluoroscopic procedure less than one hour shsebgus5056-49-90 17:15:00* Test Item Value Reference Range Interpretation Comments Absolute Immature Granulocyte (auto (zeenat t code = Absolute Immature Granulocyte (auto) 0.02 0-0.1 [facility] HospitalBlfederal [facility] hospital leukocytes automated count (number/volume)2019-12-11 17:15:00* Test Item Value Reference Range Interpretation Comments White Blood Count (test code = 6690-2) 5.98 4.8-10.8 [facility] erythrocytes automated count (number/volume)2019-12-11 17:15:00* Test Item Value Reference Range Interpretation Comments Red Blood Count (test code = 789-8) 3.79 4.3-5.7 [facility] HospitalBlood hemoglobin measurement (moles/volume)2019-12-11 17:15:00* Test Item Value Reference Range Interpretation Comments Hemoglobin (test code = 25724-6) 11.1 14.0-18.0 [facility] HospitalAutat[facility] health kannapolised blood hematocrit (volume fraction)2019-12-11 17:15:00* Test Item Value Reference Range Interpretation Comments Hematocrit (test code = 4544-3) 34.9 38.2-49.6 [facility] HospitalAutomated erythrocyte mean corpuscular zxvhvh8502-22-74 17:15:00* Test Item Value Reference Range Interpretation Comments Mean Corpuscular Volume (test code = 787-2) 92.1 81-99 [facility] HospitalAutomated erythrocyte mean corpuscular hemoglobin (mass per erythrocyte)2019-12-11 17:15:00* Test Item Value Reference Range Interpretation Comments Mean Corpuscular Hemoglobin (test code = 785-6) 29.3 28-32 [facility] HospitalAutomated erythrocyte mean corpuscular hemoglobin concentration measurement (mass/volume)2019-12-11 17:15:00* Test Item Value Reference Range Interpretation Comments Mean Corpuscular Hemoglobin Concent (test code = 786-4) 31.8 31-35 [facility] HospitalRDW VuuEo-Slx2534-42-13 17:15:00* Test Item Value Reference Range Interpretation Comments Red Cell Distribution Width (test code = 20175-6) 14.0 11.7 -14.4 [facility] HospitalAutomated blood platelet count (count/volume)2019-12-11 17:15:00* Test Item Value Reference Range Interpretation Comments Platelet Count (test code = 777-3) 200 140-360 [facility] HospitalAutomated blood segmented neutrophil count as percentage of total hnqjtdpysm0987-29-59 17:15:00* Test Item Value Reference Range Interpretation Comments Neutrophils (%) (Auto) (test code = 64185-7) 60.7 38.7-80.0 [facility] HospitalAutomated blood lymphocyte count as percentage ot total anhztzqnfo8312-10-93 17:15:00* Test Item Value Reference Range Interpretation Comments Lymphocytes (%) (Auto) (test code = 736-9) 24.7 18.0-39.1 [facility] HospitalAutomated blood monocyte count as percentage of total dofyfurxae6909-56-67 17:15:00* Test Item Value Reference Range Interpretation Comments Monocytes (%) (Auto) (test code = 5905-5) 9.9 4.4-11.3 [facility] HospitalAutomated blood eosinophil count as percentage of total gjrykwadtp7752-57-70 17:15:00* Test Item Value Reference Range Interpretation Comments Eosinophils (%) (Auto) (test code = 713-8) 3.2 0.0-6.0 [facility] HospitalAutomated blood basophil count as percentage of total zrdcbpirlk2241-17-06 17:15:00* Test Item Value Reference Range Interpretation Comments Basophils (%) (Auto) (test code = 706-2) 1.2 0.0-1.0 [facility] HospitalFluoroscopic procedure less than one hour ljodrdlt2188-82-80 17:15:00* Test Item Value Reference Range Interpretation Comments IM GRANULOCYTES % (test code = IM GRANULOCYTES %) 0.3 0.0- 1.0 [facility] HospitalAutomated blood neutrophil count 2019-12-11 17:15:00* Test Item Value Reference Range Interpretation Comments Neutrophils # (Auto) (test code = 751-8) 3.6 2.1-6.9 [facility] HospitalBlood lymphocytes count (number/volume) 2019-12-11 17:15:00* Test Item Value Reference Range Interpretation Comments Lymphocytes # (Auto) (test code = 95725-2) 1.5 1.0-3.2 [facility] HospitalBlood monocytes automated count (number/volume)2019-12-11 17:15:00* Test Item Value Reference Range Interpretation Comments Monocytes # (Auto) (test code = 742-7) 0.6 0.2-0.8 [facility] HospitalAutomated blood eosinophil count 2019-12-11 17:15:00* Test Item Value Reference Range Interpretation Comments Eosinophils # (Auto) (test code = 711-2) 0.2 0.0-0.4 [facility] HospitalAutomated blood basophil count (count/volume)2019-12-11 17:15:00* Test Item Value Reference Range Interpretation Comments Basophils # (Auto) (test code = 704-7) 0.1 0.0-0.1 [facility] HospitalFluoroscopic procedure less than one hour feucuqxp4431-29-46 17:15:00* Test Item Value Reference Range Interpretation Comments Absolute Immature Granulocyte (auto (zeenat t code = Absolute Immature Granulocyte (auto) 0.02 0-0.1 [facility] HospitalABDOMEN COMPLETE - [id number] 00:00:00 [place] [address] Patient Name: BREE LINDSAY MR #: [id number] : 1975 Age/Sex: 43/M Req #: [id number] Adm Physician: Ordered by: ALEISHA LYNNE MD Report #: [id number] Location: [facility] Room/Bed: Procedure: [id number] HOPD/ABDOMEN COMPLETE - HOPD Exam Date: 11/11/19 [...] PAULA on 11/12/19 0002 COPY TO: ALEISHA FUNG MD Capillary blood glucose measurement by glucometer (mass/volume)2019-10-28 15:46:00* Test Item Value Reference Range Interpretation Comments Bedside Glucose (test code = 30189-0) 62 70-120 Meter ID: [id number] [facility]Cap[facility] blood glucose measurement by glucometer (mass/volume)2019-10-28 15:46:00* Test Item Value Reference Range Interpretation Comments Bedside Glucose (test code = 00492-6) 62 70-120 Meter ID: [id number] [facility] PasoCap[facility] blood glucose measurement by glucometer (mass/volume)2019-10-28 15:46:00* Test Item Value Reference Range Interpretation Comments Bedside Glucose (test code = 89784-8) 62 70-120 Meter ID: [id number] [facility] blood glucose measurement by glucometer (mass/volume)2019-10-28 15:46:00* Test Item Value Reference Range Interpretation Comments Bedside Glucose (test code = 06771-5) 62 70-120 Meter ID: [id number] Medical Center blood glucose measurement by glucometer (mass/volume)2019-10-28 15:46:00* Test Item Value Reference Range Interpretation Comments Bedside Glucose (test code = 01004-0) 62 70-120 Meter ID: [id number] Medical Center blood glucose measurement by glucometer (mass/volume)2019-10-28 15:46:00* Test Item Value Reference Range Interpretation Comments Bedside Glucose (test code = 05598-6) 62 70-120 Meter ID: [id number] Medical Center blood glucose measurement by glucometer (mass/volume)2019-10-28 15:46:00* Test Item Value Reference Range Interpretation Comments Bedside Glucose (test code = 65566-5) 62 70-120 Meter ID: [id number] Medical Center blood glucose measurement by glucometer (mass/volume)2019-10-28 15:46:00* Test Item Value Reference Range Interpretation Comments Bedside Glucose (test code = 51118-2) 62 70-120 Meter ID: [id number] Health [facility]neerum or plasma sodium measurement (moles/volume)2019-10-28 04:50:00* Test Item Value Reference Range Interpretation Comments Sodium Level (test code = 2951-2) 141 136-145 [facility]ne[facility] plasma potassium measurement (moles/volume)2019-10-28 04:50:00* Test Item Value Reference Range Interpretation Comments Potassium Level (test code = 2823-3) 3.7 3.5-5.1 [facility]neerum or plasma chloride measurement (moles/volume)2019-10-28 04:50:00* Test Item Value Reference Range Interpretation Comments Chloride Level (test code = 2075-0) 106 98-107 [facility]neerum or plasma carbon dioxide, total measurement (moles/volume)2019-10-28 04:50:00* Test Item Value Reference Range Interpretation Comments Carbon Dioxide Level (test code = 2028-9) 24 22-29 [facility]neerum or plasma anion hun7859-87-86 04:50:00* Test Item Value Reference Range Interpretation Comments Anion Gap (test code = 39163-7) 14.7 8-16 [facility]neerum or plasma urea nitrogen measurement (mass/volume)2019-10-28 04:50:00* Test Item Value Reference Range Interpretation Comments Blood Urea Nitrogen (test code = 3094-0) 17 7-26 [facility]neerum or plasma creatinine measurement (mass/volume)2019-10-28 04:50:00* Test Item Value Reference Range Interpretation Comments Creatinine (test code = 2160-0) 1.15 0.72-1.25 [facility]neerum or plasma urea nitrogen/creatinine mass rspxn6724-50-79 04:50:00* Test Item Value Reference Range Interpretation Comments BUN/Creatinine Ratio (test code = 3097-3) 15 6-25 [facility] HospitalEstimated glomerular filtration rate (GFR) qebevhofzppwb3595-48-21 04:50:00* Test Item Value Reference Range Interpretation Comments Estimat Glomerular Filtration Rate (test code = 391310682) > 60 >60 Ranges were taken from the National Kidney Disease Education Program and the [facility] Kidney Foundation literature.Reference ranges:60 or greater: Zqsehh61-27 ( for 3 consecutive months): Chronic kidney disease 15 or less: Kidney failureHarris Health System Ben Taub HospitalGlucose zamlfqfdteh3128-07-25 04:50:00* Test Item Value Reference Range Interpretation Comments Glucose Level (test code = WSD1058) 246 74-118 [facility]neerum or plasma calcium measurement (mass/volume)2019-10-28 04:50:00* Test Item Value Reference Range Interpretation Comments Calcium Level (test code = 19905-3) 8.4 8.4-10.2 [facility] HospitalFluoroscopic procedure less than one hour suhatses6474-92-32 04:50:00* Test Item Value Reference Range Interpretation Comments Hemoglobin A1c Percent (test code = Hemoglobin A1c Percent) 9.9 4.0-7.0 [facility]neerum or plasma lipase measurement (enzymatic activity/volume)2019-10-28 04:50:00* Test Item Value Reference Range Interpretation Comments Lipase (test code = 3040-3) < 4 8-78 [facility]neerum or plasma sodium measurement (moles/volume)2019-10-28 04:50:00* Test Item Value Reference Range Interpretation Comments Sodium Level (test code = 2951-2) 141 136-145 [facility]neerum or plasma potassium measurement (moles/volume)2019-10-28 04:50:00* Test Item Value Reference Range Interpretation Comments Potassium Level (test code = 2823-3) 3.7 3.5-5.1 [facility]neerum or plasma chloride measurement (moles/volume)2019-10-28 04:50:00* Test Item Value Reference Range Interpretation Comments Chloride Level (test code = 2075-0) 106 98-107 [facility]neerum or plasma carbon dioxide, total measurement (moles/volume)2019-10-28 04:50:00* Test Item Value Reference Range Interpretation Comments Carbon Dioxide Level (test code = 2028-9) 24 22-29 [facility]neerum or plasma anion nrx5420-47-83 04:50:00* Test Item Value Reference Range Interpretation Comments Anion Gap (test code = 07093-6) 14.7 8-16 [facility]neerum or plasma urea nitrogen measurement (mass/volume)2019-10-28 04:50:00* Test Item Value Reference Range Interpretation Comments Blood Urea Nitrogen (test code = 3094-0) 17 7-26 [facility]neerum or plasma creatinine measurement (mass/volume)2019-10-28 04:50:00* Test Item Value Reference Range Interpretation Comments Creatinine (test code = 2160-0) 1.15 0.72-1.25 [facility]neerum or plasma urea nitrogen/creatinine mass yypgm7614-72-69 04:50:00* Test Item Value Reference Range Interpretation Comments BUN/Creatinine Ratio (test code = 3097-3) 15 6-25 [facility] HospitalEstimated glomerular filtration rate (GFR) sxscjjtdadsgd3129-42-75 04:50:00* Test Item Value Reference Range Interpretation Comments Estimat Glomerular Filtration Rate (test code = 809179285) > 60 >60 Ranges were taken from the National Kidney Disease Education Program and the [facility]ney Foundation literature.Reference ranges:60 or greater: Fuhkoy52-13 ( for 3 consecutive months): Chronic kidney disease 15 or less: Kidney failureHarris Health System Ben Taub HospitalGlucose tmhfhowiuju4931-16-81 04:50:00* Test Item Value Reference Range Interpretation Comments Glucose Level (test code = VCU3358) 246 74-118 [facility]neerum or plasma calcium measurement (mass/volume)2019-10-28 04:50:00* Test Item Value Reference Range Interpretation Comments Calcium Level (test code = 98982-4) 8.4 8.4-10.2 [facility] HospitalFluoroscopic procedure less than one hour rdmvncfh3835-45-88 04:50:00* Test Item Value Reference Range Interpretation Comments Hemoglobin A1c Percent (test code = Hemoglobin A1c Percent) 9.9 4.0-7.0 [facility]neerum or plasma lipase measurement (enzymatic activity/volume)2019-10-28 04:50:00* Test Item Value Reference Range Interpretation Comments Lipase (test code = 3040-3) < 4 8-78 [facility]neerum or plasma sodium measurement (moles/volume)2019-10-28 04:50:00* Test Item Value Reference Range Interpretation Comments Sodium Level (test code = 2951-2) 141 136-145 [facility]neerum or plasma potassium measurement (moles/volume)2019-10-28 04:50:00* Test Item Value Reference Range Interpretation Comments Potassium Level (test code = 2823-3) 3.7 3.5-5.1 [facility]neerum or plasma chloride measurement (moles/volume)2019-10-28 04:50:00* Test Item Value Reference Range Interpretation Comments Chloride Level (test code = 2075-0) 106 98-107 [facility]neerum or plasma carbon dioxide, total measurement (moles/volume)2019-10-28 04:50:00* Test Item Value Reference Range Interpretation Comments Carbon Dioxide Level (test code = 2028-9) 24 22-29 [facility]neerum or plasma anion kiz4934-88-57 04:50:00* Test Item Value Reference Range Interpretation Comments Anion Gap (test code = 23572-9) 14.7 8-16 [facility]neerum or plasma urea nitrogen measurement (mass/volume)2019-10-28 04:50:00* Test Item Value Reference Range Interpretation Comments Blood Urea Nitrogen (test code = 3094-0) 17 7-26 [facility]neerum or plasma creatinine measurement (mass/volume)2019-10-28 04:50:00* Test Item Value Reference Range Interpretation Comments Creatinine (test code = 2160-0) 1.15 0.72-1.25 [facility]neerum or plasma urea nitrogen/creatinine mass lznau3279-42-16 04:50:00* Test Item Value Reference Range Interpretation Comments BUN/Creatinine Ratio (test code = 3097-3) 15 6-25 [facility] HospitalEstimated glomerular filtration rate (GFR) vcmhqqudmkgue0389-59-32 04:50:00* Test Item Value Reference Range Interpretation Comments Estimat Glomerular Filtration Rate (test code = 273388642) > 60 >60 Ranges were taken from the National Kidney Disease Education Program and the [facility] [facility] literature.Reference ranges:60 or greater: [id number] ( for 3 consecutive months): Chronic kidney disease 15 or less: Kidney failureHarris [facility] HospitalGlucose papucweugxw7727-59-51 04:50:00* Test Item Value Reference Range Interpretation Comments Glucose Level (test code = EHB6146) 246 74-118 [facility] calcium measurement (mass/volume)2019-10-28 04:50:00* Test Item Value Reference Range Interpretation Comments Calcium Level (test code = 83666-0) 8.4 8.4-10.2 [facility] HospitalFluoroscopic procedure less than one hour ohkoaowo5964-89-17 04:50:00* Test Item Value Reference Range Interpretation Comments Hemoglobin A1c Percent (test code = Hemoglobin A1c Percent) 9.9 4.0-7.0 [facility] plasma lipase measurement (enzymatic activity/volume)2019-10-28 04:50:00* Test Item Value Reference Range Interpretation Comments Lipase (test code = 3040-3) < 4 8-78 [facility] plasma sodium measurement (moles/volume)2019-10-28 04:50:00* Test Item Value Reference Range Interpretation Comments Sodium Level (test code = 2951-2) 141 136-145 [facility] plasma potassium measurement (moles/volume)2019-10-28 04:50:00* Test Item Value Reference Range Interpretation Comments Potassium Level (test code = 2823-3) 3.7 3.5-5.1 [facility] plasma chloride measurement (moles/volume)2019-10-28 04:50:00* Test Item Value Reference Range Interpretation Comments Chloride Level (test code = 2075-0) 106 98-107 [facility] plasma carbon dioxide, total measurement (moles/volume)2019-10-28 04:50:00* Test Item Value Reference Range Interpretation Comments Carbon Dioxide Level (test code = 2028-9) 24 22-29 [facility] or plasma anion [id number] 04:50:00* Test Item Value Reference Range Interpretation Comments Anion Gap (test code = 77068-4) 14.7 8-16 [facility] plasma urea nitrogen measurement (mass/volume)2019-10-28 04:50:00* Test Item Value Reference Range Interpretation Comments Blood Urea Nitrogen (test code = 3094-0) 17 7-26 [facility] creatinine measurement (mass/volume)2019-10-28 04:50:00* Test Item Value Reference Range Interpretation Comments Creatinine (test code = 2160-0) 1.15 0.72-1.25 [facility] plasma urea nitrogen/creatinine mass ufltt0439-26-13 04:50:00* Test Item Value Reference Range Interpretation Comments BUN/Creatinine Ratio (test code = 3097-3) 15 6-25 [facility] HospitalEstimated glomerular filtration rate (GFR) akkujfbzybcml7088-08-16 04:50:00* Test Item Value Reference Range Interpretation Comments Estimat Glomerular Filtration Rate (test code = 388536225) > 60 >60 Ranges were taken from the National Kidney Disease Education Program and the [facility] Foundation literature.Reference ranges:60 or greater: Lkadbs82-99 ( for 3 consecutive months): Chronic kidney disease 15 or less: Kid[facility] failureHarris [facility] HospitalGlucose qxauijegqyt2867-47-84 04:50:00* Test Item Value Reference Range Interpretation Comments Glucose Level (test code = FPX0766) 246 74-118 [facility] plasma calcium measurement (mass/volume)2019-10-28 04:50:00* Test Item Value Reference Range Interpretation Comments Calcium Level (test code = 05569-2) 8.4 8.4-10.2 [facility] HospitalFluoroscopic procedure less than one hour lplukayl1111-67-36 04:50:00* Test Item Value Reference Range Interpretation Comments Hemoglobin A1c Percent (test code = Hemoglobin A1c Percent) 9.9 4.0-7.0 [facility] plasma lipase measurement (enzymatic activity/volume)2019-10-28 04:50:00* Test Item Value Reference Range Interpretation Comments Lipase (test code = 3040-3) < 4 8-78 [facility] plasma sodium measurement (moles/volume)2019-10-28 04:50:00* Test Item Value Reference Range Interpretation Comments Sodium Level (test code = 2951-2) 141 136-145 [facility] plasma potassium measurement (moles/volume)2019-10-28 04:50:00* Test Item Value Reference Range Interpretation Comments Potassium Level (test code = 2823-3) 3.7 3.5-5.1 [facility] plasma chloride measurement (moles/volume)2019-10-28 04:50:00* Test Item Value Reference Range Interpretation Comments Chloride Level (test code = 2075-0) 106 98-107 [facility] or plasma carbon dioxide, total measurement (moles/volume)2019-10-28 04:50:00* Test Item Value Reference Range Interpretation Comments Carbon Dioxide Level (test code = 2028-9) 24 22-29 [facility] plasma anion tli0201-08-47 04:50:00* Test Item Value Reference Range Interpretation Comments Anion Gap (test code = 92496-7) 14.7 8-16 [facility] plasma urea nitrogen measurement (mass/volume)2019-10-28 04:50:00* Test Item Value Reference Range Interpretation Comments Blood Urea Nitrogen (test code = 3094-0) 17 7-26 [facility] plasma creatinine measurement (mass/volume)2019-10-28 04:50:00* Test Item Value Reference Range Interpretation Comments Creatinine (test code = 2160-0) 1.15 0.72-1.25 [facility] plasma urea nitrogen/creatinine mass wgsjy7970-49-92 04:50:00* Test Item Value Reference Range Interpretation Comments BUN/Creatinine Ratio (test code = 3097-3) 15 6-25 [facility] HospitalEstimated glomerular filtration rate (GFR) lqfxogkwdcusi1054-38-07 04:50:00* Test Item Value Reference Range Interpretation Comments Estimat Glomerular Filtration Rate (test code = 448944200) > 60 >60 Ranges were taken from the National Kidney Disease Education Program and the [facility] Kid[facility] Foundation literature.Reference ranges:60 or greater: Msejoo14-83 ( for 3 consecutive months): Chronic kidney disease 15 or less: Kidney failureHarris [facility] HospitalGlucose kryahsppaww9334-43-18 04:50:00* Test Item Value Reference Range Interpretation Comments Glucose Level (test code = FEK7801) 246 74-118 [facility] or plasma calcium measurement (mass/volume)2019-10-28 04:50:00* Test Item Value Reference Range Interpretation Comments Calcium Level (test code = 98576-8) 8.4 8.4-10.2 [facility] HospitalFluoroscopic procedure less than one hour hqzavxsi2907-75-69 04:50:00* Test Item Value Reference Range Interpretation Comments Hemoglobin A1c Percent (test code = Hemoglobin A1c Percent) 9.9 4.0-7.0 [facility] or plasma lipase measurement (enzymatic activity/volume)2019-10-28 04:50:00* Test Item Value Reference Range Interpretation Comments Lipase (test code = 3040-3) < 4 8-78 [facility] or plasma sodium measurement (moles/volume)2019-10-28 04:50:00* Test Item Value Reference Range Interpretation Comments Sodium Level (test code = 2951-2) 141 136-145 [facility]er[facility] or plasma potassium measurement (moles/volume)2019-10-28 04:50:00* Test Item Value Reference Range Interpretation Comments Potassium Level (test code = 2823-3) 3.7 3.5-5.1 [facility] or plasma chloride measurement (moles/volume)2019-10-28 04:50:00* Test Item Value Reference Range Interpretation Comments Chloride Level (test code = 2075-0) 106 98-107 [facility] or plasma carbon dioxide, total measurement (moles/volume)2019-10-28 04:50:00* Test Item Value Reference Range Interpretation Comments Carbon Dioxide Level (test code = 2028-9) 24 22-29 [facility] or plasma anion mgj9949-25-32 04:50:00* Test Item Value Reference Range Interpretation Comments Anion Gap (test code = 99212-5) 14.7 8-16 [facility]erum or plasma urea nitrogen measurement (mass/volume)2019-10-28 04:50:00* Test Item Value Reference Range Interpretation Comments Blood Urea Nitrogen (test code = 3094-0) 17 7-26 [facility] or plasma creatinine measurement (mass/volume)2019-10-28 04:50:00* Test Item Value Reference Range Interpretation Comments Creatinine (test code = 2160-0) 1.15 0.72-1.25 [facility] or plasma urea nitrogen/creatinine mass rgfvz1245-07-02 04:50:00* Test Item Value Reference Range Interpretation Comments BUN/Creatinine Ratio (test code = 3097-3) 15 6-25 [facility] HospitalEstimated glomerular filtration rate (GFR) wvrvcjddxqxnn2316-60-91 04:50:00* Test Item Value Reference Range Interpretation Comments Estimat Glomerular Filtration Rate (test code = 908619117) > 60 >60 Ranges were taken from the National Kidney Disease Education Program and the [facility] Kidney Foundation literature.Reference ranges:60 or greater: Ijkyar72-38 ( for 3 consecutive months): Chronic kidney disease 15 or less: Kidney failureHarris [facility] HospitalGlucose jauxjlmkryi1746-03-11 04:50:00* Test Item Value Reference Range Interpretation Comments Glucose Level (test code = LUO6684) 246 74-118 [facility] plasma calcium measurement (mass/volume)2019-10-28 04:50:00* Test Item Value Reference Range Interpretation Comments Calcium Level (test code = 50719-7) 8.4 8.4-10.2 [facility] HospitalFluoroscopic procedure less than one hour dckjejuy3487-98-74 04:50:00* Test Item Value Reference Range Interpretation Comments Hemoglobin A1c Percent (test code = Hemoglobin A1c Percent) 9.9 4.0-7.0 [facility] or plasma lipase measurement (enzymatic activity/volume)2019-10-28 04:50:00* Test Item Value Reference Range Interpretation Comments Lipase (test code = 3040-3) < 4 8-78 [facility] or plasma sodium measurement (moles/volume)2019-10-28 04:50:00* Test Item Value Reference Range Interpretation Comments Sodium Level (test code = 2951-2) 141 136-145 [facility]er[facility] or plasma potassium measurement (moles/volume)2019-10-28 04:50:00* Test Item Value Reference Range Interpretation Comments Potassium Level (test code = 2823-3) 3.7 3.5-5.1 [facility] or plasma chloride measurement (moles/volume)2019-10-28 04:50:00* Test Item Value Reference Range Interpretation Comments Chloride Level (test code = 2075-0) 106 98-107 [facility]erum or plasma carbon dioxide, total measurement (moles/volume)2019-10-28 04:50:00* Test Item Value Reference Range Interpretation Comments Carbon Dioxide Level (test code = 2028-9) 24 22-29 [facility] or plasma anion bzd9630-50-52 04:50:00* Test Item Value Reference Range Interpretation Comments Anion Gap (test code = 08000-5) 14.7 8-16 [facility] or plasma urea nitrogen measurement (mass/volume)2019-10-28 04:50:00* Test Item Value Reference Range Interpretation Comments Blood Urea Nitrogen (test code = 3094-0) 17 7-26 [facility] or plasma creatinine measurement (mass/volume)2019-10-28 04:50:00* Test Item Value Reference Range Interpretation Comments Creatinine (test code = 2160-0) 1.15 0.72-1.25 [facility] plasma urea nitrogen/creatinine mass codoy2415-25-01 04:50:00* Test Item Value Reference Range Interpretation Comments BUN/Creatinine Ratio (test code = 3097-3) 15 6-25 [facility] HospitalEstimated glomerular filtration rate (GFR) oxzseaihsvldp8117-62-96 04:50:00* Test Item Value Reference Range Interpretation Comments Estimat Glomerular Filtration Rate (test code = 775869897) > 60 >60 Ranges were taken from the National Kidney Disease Education Program and the [facility] literature.Reference ranges:60 or greater: Cgvyhc30-37 ( for 3 consecutive months): Chronic kidney disease 15 or less: Kidney failureHarris [facility] HospitalGlucose cmgtvtdcgvs0531-38-43 04:50:00* Test Item Value Reference Range Interpretation Comments Glucose Level (test code = LTI4746) 246 74-118 [facility] plasma calcium measurement (mass/volume)2019-10-28 04:50:00* Test Item Value Reference Range Interpretation Comments Calcium Level (test code = 61771-8) 8.4 8.4-10.2 [facility] HospitalFluoroscopic procedure less than one hour fykimrlz9176-47-59 04:50:00* Test Item Value Reference Range Interpretation Comments Hemoglobin A1c Percent (test code = Hemoglobin A1c Percent) 9.9 4.0-7.0 [facility] plasma lipase measurement (enzymatic activity/volume)2019-10-28 04:50:00* Test Item Value Reference Range Interpretation Comments Lipase (test code = 3040-3) < 4 8-78 [facility] or plasma sodium measurement (moles/volume)2019-10-28 04:50:00* Test Item Value Reference Range Interpretation Comments Sodium Level (test code = 2951-2) 141 136-145 [facility] or plasma potassium measurement (moles/volume)2019-10-28 04:50:00* Test Item Value Reference Range Interpretation Comments Potassium Level (test code = 2823-3) 3.7 3.5-5.1 [facility] or plasma chloride measurement (moles/volume)2019-10-28 04:50:00* Test Item Value Reference Range Interpretation Comments Chloride Level (test code = 2075-0) 106 98-107 [facility]erum or plasma carbon dioxide, total measurement (moles/volume)2019-10-28 04:50:00* Test Item Value Reference Range Interpretation Comments Carbon Dioxide Level (test code = 2028-9) 24 22-29 [facility] or plasma anion cix3047-82-39 04:50:00* Test Item Value Reference Range Interpretation Comments Anion Gap (test code = 74101-7) 14.7 8-16 [facility] plasma urea nitrogen measurement (mass/volume)2019-10-28 04:50:00* Test Item Value Reference Range Interpretation Comments Blood Urea Nitrogen (test code = 3094-0) 17 7-26 [facility] or plasma creatinine measurement (mass/volume)2019-10-28 04:50:00* Test Item Value Reference Range Interpretation Comments Creatinine (test code = 2160-0) 1.15 0.72-1.25 [facility] plasma urea nitrogen/creatinine mass zmlfs9440-94-22 04:50:00* Test Item Value Reference Range Interpretation Comments BUN/Creatinine Ratio (test code = 3097-3) 15 6-25 [facility] HospitalEstimated glomerular filtration rate (GFR) tgfgaorovhyxb8141-73-82 04:50:00* Test Item Value Reference Range Interpretation Comments Estimat Glomerular Filtration Rate (test code = 659920474) > 60 >60 Ranges were taken from the National Kidney Disease Education Program and the [facility] Kidney Foundation literature.Reference ranges:60 or greater: Wrvutn64-80 ( for 3 consecutive months): Chronic kidney disease 15 or less: Kidney failureHarris [facility] HospitalGlucose zpprknwgwjx9429-21-28 04:50:00* Test Item Value Reference Range Interpretation Comments Glucose Level (test code = XMI7972) 246 74-118 [facility] plasma calcium measurement (mass/volume)2019-10-28 04:50:00* Test Item Value Reference Range Interpretation Comments Calcium Level (test code = 86352-7) 8.4 8.4-10.2 [facility] HospitalFluoroscopic procedure less than one hour vufuubce1681-87-38 04:50:00* Test Item Value Reference Range Interpretation Comments Hemoglobin A1c Percent (test code = Hemoglobin A1c Percent) 9.9 4.0-7.0 [facility] plasma lipase measurement (enzymatic activity/volume)2019-10-28 04:50:00* Test Item Value Reference Range Interpretation Comments Lipase (test code = 3040-3) < 4 8-78 [facility] HospitalFluoroscopic procedure less than one hour eylncheb3810-04-20 15:40:00* Test Item Value Reference Range Interpretation Comments Coronavirus (PCR) (test code = Coronavirus (PCR)) NOT DETECTED NOTD ETECTED [employer] Aptima SARS-CoV-2 assay is a nucleic amplification test intended for the qualitative detection of RNA from SARS-CoV-2 from nasopharyngeal (SLEEP TECHNOLOGIST) specimens. It is used under Emergency Use [...] for reprat testing oc clinically indicated.Tesing performed by:[facility] [address] [place] [address] [id number] hart MD, PhD [facility] HospitalFluoroscopic procedure less than one hour uaottcxh0734-55-54 15:40:00* Test Item Value Reference Range Interpretation Comments Coronavirus (PCR) (test code = Coronavirus (PCR)) NOT DETECTED NOTD ETECTED [employer] Aptima SARS-CoV-2 assay is a nucleic amplification test intended for the qualitative detection of RNA from SARS-CoV-2 from nasopharyngeal (SLEEP TECHNOLOGIST) specimens. It is used under Emergency Use [...] for reprat testing oc clinically indicated.Tesing performed by:[facility] [address] [place] [address] [id number] hart MD, PhD [facility] HospitalFluoroscopic procedure less than one hour yvobgxmx7285-04-43 15:40:00* Test Item Value Reference Range Interpretation Comments Coronavirus (PCR) (test code = Coronavirus (PCR)) NOT DETECTED NOTD ETECTED [employer] Aptima SARS-CoV-2 assay is a nucleic amplification test intended for the qualitative detection of RNA from SARS-CoV-2 from nasopharyngeal (SLEEP TECHNOLOGIST) specimens. It is used under Emergency Use [...] for reprat testing oc clinically indicated.Tesing performed by:[facility] [address] [place] [address] [id number] hart MD, PhD [facility] HospitalFluoroscopic procedure less than one hour vabidwvw2518-91-62 15:40:00* Test Item Value Reference Range Interpretation Comments Coronavirus (PCR) (test code = Coronavirus (PCR)) NOT DETECTED NOTD ETECTED [employer] Aptima SARS-CoV-2 assay is a nucleic amplification test intended for the qualitative detection of RNA from SARS-CoV-2 from nasopharyngeal (SLEEP TECHNOLOGIST) specimens. It is used under Emergency Use [...] for reprat testing oc clinically indicated.Tesing performed by:[facility] [address] [place] [address] [id number] hart MD, PhD [facility] HospitalFluoroscopic procedure less than one hour eiowmtry3123-24-44 15:40:00* Test Item Value Reference Range Interpretation Comments Coronavirus (PCR) (test code = Coronavirus (PCR)) NOT DETECTED NOTD ETECTED [employer] Apt[employer] SARS-CoV-2 assay is a nucleic amplification test intended for the qualitative detection of RNA from SARS-CoV-2 from nasopharyngeal (SLEEP TECHNOLOGIST) specimens. It is used under Emergency Use [...] for reprat testing oc clinically indicated.Tesing performed by:[facility] [address] [place] [address] [id number] hart MD, PhD [facility] HospitalFluoroscopic procedure less than one hour szwdobrp9655-47-12 15:40:00* Test Item Value Reference Range Interpretation Comments Coronavirus (PCR) (test code = Coronavirus (PCR)) NOT DETECTED NOTD ETECTED [employer] Aptima SARS-CoV-2 assay is a nucleic amplification test intended for the qualitative detection of RNA from SARS-CoV-2 from nasopharyngeal (SLEEP TECHNOLOGIST) specimens. It is used under Emergency Use [...] for reprat testing oc clinically indicated.Tesing performed by:[facility] [address] [place] [address] [id number] hart MD, PhD [facility] HospitalFluoroscopic procedure less than one hour wdfbpaxl4717-27-68 15:40:00* Test Item Value Reference Range Interpretation Comments Coronavirus (PCR) (test code = Coronavirus (PCR)) NOT DETECTED NOTD ETECTED [employer] SARS-CoV-2 assay is a nucleic amplification test intended for the qualitative detection of RNA from SARS-CoV-2 from nasopharyngeal (SLEEP TECHNOLOGIST) specimens. It is used under Emergency Use [...] for reprat testing oc clinically indicated.Tesing performed by:[facility] [address] [place] [address] [id number], Misael Mead MD, PhD [facility] HospitalBlfederal [facility] leukocytes automated count (number/volume)2019-10-27 13:50:00* Test Item Value Reference Range Interpretation Comments White Blood Count (test code = 6690-2) 7.16 4.8-10.8 [facility]Blfederal [facility] erythrocytes automated count (number/volume)2019-10-27 13:50:00* Test Item Value Reference Range Interpretation Comments Red Blood Count (test code = 789-8) 3.97 4.3-5.7 [facility] HospitalBlood hemoglobin measurement (moles/volume)2019-10-27 13:50:00* Test Item Value Reference Range Interpretation Comments Hemoglobin (test code = 41415-5) 11.2 14.0-18.0 [facility] HospitalAutomated blood hematocrit (volume fraction)2019-10-27 13:50:00* Test Item Value Reference Range Interpretation Comments Hematocrit (test code = 4544-3) 35.7 38.2-49.6 [facility] HospitalAutomated erythrocyte mean corpuscular fzubnr4608-84-19 13:50:00* Test Item Value Reference Range Interpretation Comments Mean Corpuscular Volume (test code = 787-2) 89.9 81-99 [facility] HospitalAutomated erythrocyte mean corpuscular hemoglobin (mass per erythrocyte)2019-10-27 13:50:00* Test Item Value Reference Range Interpretation Comments Mean Corpuscular Hemoglobin (test code = 785-6) 28.2 28-32 [facility] HospitalAutomated erythrocyte mean corpuscular hemoglobin concentration measurement (mass/volume)2019-10-27 13:50:00* Test Item Value Reference Range Interpretation Comments Mean Corpuscular Hemoglobin Concent (test code = 786-4) 31.4 31-35 [facility] HospitalRDW WxkIj-Qye7460-36-30 13:50:00* Test Item Value Reference Range Interpretation Comments Red Cell Distribution Width (test code = 76257-0) 13.1 11.7 -14.4 [facility] HospitalAutomated blood platelet count (count/volume)2019-10-27 13:50:00* Test Item Value Reference Range Interpretation Comments Platelet Count (test code = 777-3) 226 140-360 [facility] HospitalAutomated blood segmented neutrophil count as percentage of total hyxdrmxoep6291-81-46 13:50:00* Test Item Value Reference Range Interpretation Comments Neutrophils (%) (Auto) (test code = 93644-4) 85.1 38.7-80.0 [facility] HospitalAutomated blood lymphocyte count as percentage ot total iuyqpbkqvf8147-85-76 13:50:00* Test Item Value Reference Range Interpretation Comments Lymphocytes (%) (Auto) (test code = 736-9) 10.3 18.0-39.1 [facility] HospitalAutomated blood monocyte count as percentage of total lcdzcylwoa2817-16-00 13:50:00* Test Item Value Reference Range Interpretation Comments Monocytes (%) (Auto) (test code = 5905-5) 3.5 4.4-11.3 [facility] [facility] HospitalAutomated blood eosinophil count as percentage of total sqllvrqafm0753-93-02 13:50:00* Test Item Value Reference Range Interpretation Comments Eosinophils (%) (Auto) (test code = 713-8) 0.1 0.0-6.0 [facility] HospitalAutomated blood basophil count as percentage of total xdizmqssva5391-85-16 13:50:00* Test Item Value Reference Range Interpretation Comments Basophils (%) (Auto) (test code = 706-2) 0.7 0.0-1.0 [facility] HospitalFluoroscopic procedure less than one hour ehhuknub1768-28-86 13:50:00* Test Item Value Reference Range Interpretation Comments IM GRANULOCYTES % (test code = IM GRANULOCYTES %) 0.3 0.0- 1.0 [facility] HospitalAutomated blood neutrophil count 2019-10-27 13:50:00* Test Item Value Reference Range Interpretation Comments Neutrophils # (Auto) (test code = 751-8) 6.1 2.1-6.9 [facility] HospitalBlood lymphocytes count (number/volume) 2019-10-27 13:50:00* Test Item Value Reference Range Interpretation Comments Lymphocytes # (Auto) (test code = 39543-5) 0.7 1.0-3.2 [facility] monocytes automated count (number/volume)2019-10-27 13:50:00* Test Item Value Reference Range Interpretation Comments Monocytes # (Auto) (test code = 742-7) 0.3 0.2-0.8 [facility] HospitalAutomated blood eosinophil count 2019-10-27 13:50:00* Test Item Value Reference Range Interpretation Comments Eosinophils # (Auto) (test code = 711-2) 0.0 0.0-0.4 [facility] HospitalAutomated blood basophil count (count/volume)2019-10-27 13:50:00* Test Item Value Reference Range Interpretation Comments Basophils # (Auto) (test code = 704-7) 0.1 0.0-0.1 [facility] HospitalFluoroscopic procedure less than one hour dptkrfhw8078-42-68 13:50:00* Test Item Value Reference Range Interpretation Comments Absolute Immature Granulocyte (auto (zeenat t code = Absolute Immature Granulocyte (auto) 0.02 0-0.1 [facility] leukocytes automated count (number/volume)2019-10-27 13:50:00* Test Item Value Reference Range Interpretation Comments White Blood Count (test code = 6690-2) 7.16 4.8-10.8 [facility] erythrocytes automated count (number/volume)2019-10-27 13:50:00* Test Item Value Reference Range Interpretation Comments Red Blood Count (test code = 789-8) 3.97 4.3-5.7 [facility] HospitalBlood hemoglobin measurement (moles/volume)2019-10-27 13:50:00* Test Item Value Reference Range Interpretation Comments Hemoglobin (test code = 99637-1) 11.2 14.0-18.0 [facility] HospitalAutomated blood hematocrit (volume fraction)2019-10-27 13:50:00* Test Item Value Reference Range Interpretation Comments Hematocrit (test code = 4544-3) 35.7 38.2-49.6 [facility] HospitalAutomated erythrocyte mean corpuscular cmdiol7148-60-23 13:50:00* Test Item Value Reference Range Interpretation Comments Mean Corpuscular Volume (test code = 787-2) 89.9 81-99 [facility] HospitalAutomated erythrocyte mean corpuscular hemoglobin (mass per erythrocyte)2019-10-27 13:50:00* Test Item Value Reference Range Interpretation Comments Mean Corpuscular Hemoglobin (test code = 785-6) 28.2 28-32 [facility] HospitalAutomated erythrocyte mean corpuscular hemoglobin concentration measurement (mass/volume)2019-10-27 13:50:00* Test Item Value Reference Range Interpretation Comments Mean Corpuscular Hemoglobin Concent (test code = 786-4) 31.4 31-35 [facility] HospitalRDW EtsGa-Nky9445-32-30 13:50:00* Test Item Value Reference Range Interpretation Comments Red Cell Distribution Width (test code = 96617-4) 13.1 11.7 -14.4 [facility] HospitalAutomated blood platelet count (count/volume)2019-10-27 13:50:00* Test Item Value Reference Range Interpretation Comments Platelet Count (test code = 777-3) 226 140-360 [facility] HospitalAutomated blood segmented neutrophil count as percentage of total wdooybtnoo6959-80-21 13:50:00* Test Item Value Reference Range Interpretation Comments Neutrophils (%) (Auto) (test code = 16109-8) 85.1 38.7-80.0 [facility] HospitalAutomated blood lymphocyte count as percentage ot total yuseljueoe1190-55-54 13:50:00* Test Item Value Reference Range Interpretation Comments Lymphocytes (%) (Auto) (test code = 736-9) 10.3 18.0-39.1 [facility] HospitalAutomated blood monocyte count as percentage of total xjivawsezd8921-24-44 13:50:00* Test Item Value Reference Range Interpretation Comments Monocytes (%) (Auto) (test code = 5905-5) 3.5 4.4-11.3 [facility] HospitalAutomated blood eosinophil count as percentage of total bonnbqicqd4435-80-43 13:50:00* Test Item Value Reference Range Interpretation Comments Eosinophils (%) (Auto) (test code = 713-8) 0.1 0.0-6.0 [facility] HospitalAutomated blood basophil count as percentage of total lpwdtatfwc4952-25-07 13:50:00* Test Item Value Reference Range Interpretation Comments Basophils (%) (Auto) (test code = 706-2) 0.7 0.0-1.0 [facility] HospitalFluoroscopic procedure less than one hour nprtzbig1350-07-07 13:50:00* Test Item Value Reference Range Interpretation Comments IM GRANULOCYTES % (test code = IM GRANULOCYTES %) 0.3 0.0- 1.0 [facility] HospitalAutomated blood neutrophil count 2019-10-27 13:50:00* Test Item Value Reference Range Interpretation Comments Neutrophils # (Auto) (test code = 751-8) 6.1 2.1-6.9 [facility] HospitalBlood lymphocytes count (number/volume) 2019-10-27 13:50:00* Test Item Value Reference Range Interpretation Comments Lymphocytes # (Auto) (test code = 16600-8) 0.7 1.0-3.2 [facility] HospitalBlood monocytes automated count (number/volume)2019-10-27 13:50:00* Test Item Value Reference Range Interpretation Comments Monocytes # (Auto) (test code = 742-7) 0.3 0.2-0.8 [facility] HospitalAutomated blood eosinophil count 2019-10-27 13:50:00* Test Item Value Reference Range Interpretation Comments Eosinophils # (Auto) (test code = 711-2) 0.0 0.0-0.4 [facility] HospitalAutomated blood basophil count (count/volume)2019-10-27 13:50:00* Test Item Value Reference Range Interpretation Comments Basophils # (Auto) (test code = 704-7) 0.1 0.0-0.1 [facility] HospitalFluoroscopic procedure less than one hour hhwbtxml8889-43-53 13:50:00* Test Item Value Reference Range Interpretation Comments Absolute Immature Granulocyte (auto (zeenat t code = Absolute Immature Granulocyte (auto) 0.02 0-0.1 [facility] leukocytes automated count (number/volume)2019-10-27 13:50:00* Test Item Value Reference Range Interpretation Comments White Blood Count (test code = 6690-2) 7.16 4.8-10.8 [facility] erythrocytes automated count (number/volume)2019-10-27 13:50:00* Test Item Value Reference Range Interpretation Comments Red Blood Count (test code = 789-8) 3.97 4.3-5.7 [facility] hemoglobin measurement (moles/volume)2019-10-27 13:50:00* Test Item Value Reference Range Interpretation Comments Hemoglobin (test code = 88253-8) 11.2 14.0-18.0 [facility]Aut[facility] [place] blood hematocrit (volume fraction)2019-10-27 13:50:00* Test Item Value Reference Range Interpretation Comments Hematocrit (test code = 4544-3) 35.7 38.2-49.6 [facility] HospitalAutomated erythrocyte mean corpuscular jiwmwm6756-72-94 13:50:00* Test Item Value Reference Range Interpretation Comments Mean Corpuscular Volume (test code = 787-2) 89.9 81-99 [facility] HospitalAutomated erythrocyte mean corpuscular hemoglobin (mass per erythrocyte)2019-10-27 13:50:00* Test Item Value Reference Range Interpretation Comments Mean Corpuscular Hemoglobin (test code = 785-6) 28.2 28-32 [facility] HospitalAutomated erythrocyte mean corpuscular hemoglobin concentration measurement (mass/volume)2019-10-27 13:50:00* Test Item Value Reference Range Interpretation Comments Mean Corpuscular Hemoglobin Concent (test code = 786-4) 31.4 31-35 [facility] HospitalRDW YchRx-Hrp3756-86-30 13:50:00* Test Item Value Reference Range Interpretation Comments Red Cell Distribution Width (test code = 69606-7) 13.1 11.7 -14.4 [facility] HospitalAutomated blood platelet count (count/volume)2019-10-27 13:50:00* Test Item Value Reference Range Interpretation Comments Platelet Count (test code = 777-3) 226 140-360 [facility] HospitalAutomated blood segmented neutrophil count as percentage of total lmdoqtjczo1818-08-36 13:50:00* Test Item Value Reference Range Interpretation Comments Neutrophils (%) (Auto) (test code = 68632-6) 85.1 38.7-80.0 [facility] HospitalAutomated blood lymphocyte count as percentage ot total muzwqfauyd9160-05-07 13:50:00* Test Item Value Reference Range Interpretation Comments Lymphocytes (%) (Auto) (test code = 736-9) 10.3 18.0-39.1 [facility] HospitalAutomated blood monocyte count as percentage of total tabtyowppn3531-60-28 13:50:00* Test Item Value Reference Range Interpretation Comments Monocytes (%) (Auto) (test code = 5905-5) 3.5 4.4-11.3 [facility] HospitalAutomated blood eosinophil count as percentage of total mzqbxefgnk0377-46-55 13:50:00* Test Item Value Reference Range Interpretation Comments Eosinophils (%) (Auto) (test code = 713-8) 0.1 0.0-6.0 [facility] HospitalAutomated blood basophil count as percentage of total pzxubadkcs7301-39-88 13:50:00* Test Item Value Reference Range Interpretation Comments Basophils (%) (Auto) (test code = 706-2) 0.7 0.0-1.0 [facility] HospitalFluoroscopic procedure less than one hour adjffzuq2475-69-82 13:50:00* Test Item Value Reference Range Interpretation Comments IM GRANULOCYTES % (test code = IM GRANULOCYTES %) 0.3 0.0- 1.0 [facility] HospitalAutomated blood neutrophil count 2019-10-27 13:50:00* Test Item Value Reference Range Interpretation Comments Neutrophils # (Auto) (test code = 751-8) 6.1 2.1-6.9 [facility] 2019-10-27 13:50:00* Test Item Value Reference Range Interpretation Comments Lymphocytes # (Auto) (test code = 83546-3) 0.7 1.0-3.2 [facility] monocytes automated count (number/volume)2019-10-27 13:50:00* Test Item Value Reference Range Interpretation Comments Monocytes # (Auto) (test code = 742-7) 0.3 0.2-0.8 [facility]Autom[facility] blood eosinophil count 2019-10-27 13:50:00* Test Item Value Reference Range Interpretation Comments Eosinophils # (Auto) (test code = 711-2) 0.0 0.0-0.4 [facility]Autom[facility] blood basophil count (count/volume)2019-10-27 13:50:00* Test Item Value Reference Range Interpretation Comments Basophils # (Auto) (test code = 704-7) 0.1 0.0-0.1 [facility] HospitalFluoroscopic procedure less than one hour jdrutvyu1726-64-32 13:50:00* Test Item Value Reference Range Interpretation Comments Absolute Immature Granulocyte (auto (zeenat t code = Absolute Immature Granulocyte (auto) 0.02 0-0.1 [facility] leukocytes automated count (number/volume)2019-10-27 13:50:00* Test Item Value Reference Range Interpretation Comments White Blood Count (test code = 6690-2) 7.16 4.8-10.8 [facility] erythrocytes automated count (number/volume)2019-10-27 13:50:00* Test Item Value Reference Range Interpretation Comments Red Blood Count (test code = 789-8) 3.97 4.3-5.7 [facility] HospitalBlood hemoglobin measurement (moles/volume)2019-10-27 13:50:00* Test Item Value Reference Range Interpretation Comments Hemoglobin (test code = 62973-3) 11.2 14.0-18.0 [facility] HospitalAutomated blood hematocrit (volume fraction)2019-10-27 13:50:00* Test Item Value Reference Range Interpretation Comments Hematocrit (test code = 4544-3) 35.7 38.2-49.6 [facility] HospitalAutomated erythrocyte mean corpuscular pyrwlw1420-51-96 13:50:00* Test Item Value Reference Range Interpretation Comments Mean Corpuscular Volume (test code = 787-2) 89.9 81-99 [facility] HospitalAutomated erythrocyte mean corpuscular hemoglobin (mass per erythrocyte)2019-10-27 13:50:00* Test Item Value Reference Range Interpretation Comments Mean Corpuscular Hemoglobin (test code = 785-6) 28.2 28-32 [facility] HospitalAutomated erythrocyte mean corpuscular hemoglobin concentration measurement (mass/volume)2019-10-27 13:50:00* Test Item Value Reference Range Interpretation Comments Mean Corpuscular Hemoglobin Concent (test code = 786-4) 31.4 31-35 [facility] HospitalRDW LqnPq-Hmb4972-36-30 13:50:00* Test Item Value Reference Range Interpretation Comments Red Cell Distribution Width (test code = 90777-8) 13.1 11.7 -14.4 [facility] HospitalAutomated blood platelet count (count/volume)2019-10-27 13:50:00* Test Item Value Reference Range Interpretation Comments Platelet Count (test code = 777-3) 226 140-360 [facility]Aut[facility] [place] blood segmented neutrophil count as percentage of total ajrlzqkrwa8160-79-64 13:50:00* Test Item Value Reference Range Interpretation Comments Neutrophils (%) (Auto) (test code = 51539-7) 85.1 38.7-80.0 [facility] HospitalAutomated blood lymphocyte count as percentage ot total rirapzulxo4303-92-02 13:50:00* Test Item Value Reference Range Interpretation Comments Lymphocytes (%) (Auto) (test code = 736-9) 10.3 18.0-39.1 [facility] HospitalAutomated blood monocyte count as percentage of total nkzyhyritg4115-08-37 13:50:00* Test Item Value Reference Range Interpretation Comments Monocytes (%) (Auto) (test code = 5905-5) 3.5 4.4-11.3 [facility] HospitalAutomated blood eosinophil count as percentage of total lrqdovnxzn6676-05-37 13:50:00* Test Item Value Reference Range Interpretation Comments Eosinophils (%) (Auto) (test code = 713-8) 0.1 0.0-6.0 [facility] HospitalAutomated blood basophil count as percentage of total gptcfttxxr2302-73-82 13:50:00* Test Item Value Reference Range Interpretation Comments Basophils (%) (Auto) (test code = 706-2) 0.7 0.0-1.0 [facility] HospitalFluoroscopic procedure less than one hour kjnzdaem8827-48-00 13:50:00* Test Item Value Reference Range Interpretation Comments IM GRANULOCYTES % (test code = IM GRANULOCYTES %) 0.3 0.0- 1.0 [facility]Automated blood neutrophil count 2019-10-27 13:50:00* Test Item Value Reference Range Interpretation Comments Neutrophils # (Auto) (test code = 751-8) 6.1 2.1-6.9 [facility] HospitalBlood lymphocytes count (number/volume) 2019-10-27 13:50:00* Test Item Value Reference Range Interpretation Comments Lymphocytes # (Auto) (test code = 04779-0) 0.7 1.0-3.2 [facility] HospitalBlood monocytes automated count (number/volume)2019-10-27 13:50:00* Test Item Value Reference Range Interpretation Comments Monocytes # (Auto) (test code = 742-7) 0.3 0.2-0.8 [facility] HospitalAutomated blood eosinophil count 2019-10-27 13:50:00* Test Item Value Reference Range Interpretation Comments Eosinophils # (Auto) (test code = 711-2) 0.0 0.0-0.4 [facility] HospitalAutomated blood basophil count (count/volume)2019-10-27 13:50:00* Test Item Value Reference Range Interpretation Comments Basophils # (Auto) (test code = 704-7) 0.1 0.0-0.1 [facility] HospitalFluoroscopic procedure less than one hour lisxdxzg1367-58-43 13:50:00* Test Item Value Reference Range Interpretation Comments Absolute Immature Granulocyte (auto (zeenat t code = Absolute Immature Granulocyte (auto) 0.02 0-0.1 [facility] count (number/volume)2019-10-27 13:50:00* Test Item Value Reference Range Interpretation Comments White Blood Count (test code = 6690-2) 7.16 4.8-10.8 [facility]Bl[facility] erythrocytes automated count (number/volume)2019-10-27 13:50:00* Test Item Value Reference Range Interpretation Comments Red Blood Count (test code = 789-8) 3.97 4.3-5.7 [facility] hemoglobin measurement (moles/volume)2019-10-27 13:50:00* Test Item Value Reference Range Interpretation Comments Hemoglobin (test code = 68551-9) 11.2 14.0-18.0 [facility] HospitalAutomated blood hematocrit (volume fraction)2019-10-27 13:50:00* Test Item Value Reference Range Interpretation Comments Hematocrit (test code = 4544-3) 35.7 38.2-49.6 [facility] HospitalAutomated erythrocyte mean corpuscular woixgo3521-01-44 13:50:00* Test Item Value Reference Range Interpretation Comments Mean Corpuscular Volume (test code = 787-2) 89.9 81-99 [facility] HospitalAutomated erythrocyte mean corpuscular hemoglobin (mass per erythrocyte)2019-10-27 13:50:00* Test Item Value Reference Range Interpretation Comments Mean Corpuscular Hemoglobin (test code = 785-6) 28.2 28-32 [facility] HospitalAutomated erythrocyte mean corpuscular hemoglobin concentration measurement (mass/volume)2019-10-27 13:50:00* Test Item Value Reference Range Interpretation Comments Mean Corpuscular Hemoglobin Concent (test code = 786-4) 31.4 31-35 [facility] HospitalRDW BpfXm-Egu9362-46-30 13:50:00* Test Item Value Reference Range Interpretation Comments Red Cell Distribution Width (test code = 39247-0) 13.1 11.7 -14.4 [facility] HospitalAutomated blood platelet count (count/volume)2019-10-27 13:50:00* Test Item Value Reference Range Interpretation Comments Platelet Count (test code = 777-3) 226 140-360 [facility]Aut[facility] [place] blood segmented neutrophil count as percentage of total zfsuvklhry0788-95-66 13:50:00* Test Item Value Reference Range Interpretation Comments Neutrophils (%) (Auto) (test code = 27765-3) 85.1 38.7-80.0 [facility]Aut[facility] [place] blood lymphocyte count as percentage ot total mkmofppwcr3166-03-99 13:50:00* Test Item Value Reference Range Interpretation Comments Lymphocytes (%) (Auto) (test code = 736-9) 10.3 18.0-39.1 [facility] HospitalAutomated blood monocyte count as percentage of total eqddlpbgwb0708-13-43 13:50:00* Test Item Value Reference Range Interpretation Comments Monocytes (%) (Auto) (test code = 5905-5) 3.5 4.4-11.3 [facility]Aut[facility] blood eosinophil count as percentage of total zssodicgyz8611-76-44 13:50:00* Test Item Value Reference Range Interpretation Comments Eosinophils (%) (Auto) (test code = 713-8) 0.1 0.0-6.0 [facility] HospitalAutomated blood basophil count as percentage of total omklfmpzkc7855-88-16 13:50:00* Test Item Value Reference Range Interpretation Comments Basophils (%) (Auto) (test code = 706-2) 0.7 0.0-1.0 [facility] HospitalFluoroscopic procedure less than one hour qydeeykz5626-52-34 13:50:00* Test Item Value Reference Range Interpretation Comments IM GRANULOCYTES % (test code = IM GRANULOCYTES %) 0.3 0.0- 1.0 [facility] HospitalAutomated blood neutrophil count 2019-10-27 13:50:00* Test Item Value Reference Range Interpretation Comments Neutrophils # (Auto) (test code = 751-8) 6.1 2.1-6.9 [facility] lymphocytes count (number/volume) 2019-10-27 13:50:00* Test Item Value Reference Range Interpretation Comments Lymphocytes # (Auto) (test code = 68146-0) 0.7 1.0-3.2 [facility] monocytes automated count (number/volume)2019-10-27 13:50:00* Test Item Value Reference Range Interpretation Comments Monocytes # (Auto) (test code = 742-7) 0.3 0.2-0.8 [facility] 2019-[facility]27 13:50:00* Test Item Value Reference Range Interpretation Comments Eosinophils # (Auto) (test code = 711-2) 0.0 0.0-0.4 [facility]Aut[facility] [place] blood basophil count (count/volume)2019-10-27 13:50:00* Test Item Value Reference Range Interpretation Comments Basophils # (Auto) (test code = 704-7) 0.1 0.0-0.1 [facility] HospitalFluoroscopic procedure less than one hour gnzpithy8558-92-56 13:50:00* Test Item Value Reference Range Interpretation Comments Absolute Immature Granulocyte (auto (zeenat t code = Absolute Immature Granulocyte (auto) 0.02 0-0.1 [facility] leukocytes automated count (number/volume)2019-10-06 05:15:00* Test Item Value Reference Range Interpretation Comments White Blood Count (test code = 6690-2) 7.83 4.8-10.8 [facility]Bl[facility] erythrocytes automated count (number/volume)2019-10-06 05:15:00* Test Item Value Reference Range Interpretation Comments Red Blood Count (test code = 789-8) 3.95 4.3-5.7 [facility] HospitalBlood hemoglobin measurement (moles/volume)2019-10-06 05:15:00* Test Item Value Reference Range Interpretation Comments Hemoglobin (test code = 71388-9) 11.2 14.0-18.0 [facility]Autom[facility] blood hematocrit (volume fraction)2019-10-06 05:15:00* Test Item Value Reference Range Interpretation Comments Hematocrit (test code = 4544-3) 35.5 38.2-49.6 [facility] HospitalAutomated erythrocyte mean corpuscular pfxpob4820-22-51 05:15:00* Test Item Value Reference Range Interpretation Comments Mean Corpuscular Volume (test code = 787-2) 89.9 81-99 [facility] HospitalAutomated erythrocyte mean corpuscular hemoglobin (mass per erythrocyte)2019-10-06 05:15:00* Test Item Value Reference Range Interpretation Comments Mean Corpuscular Hemoglobin (test code = 785-6) 28.4 28-32 [facility] HospitalAutomated erythrocyte mean corpuscular hemoglobin concentration measurement (mass/volume)2019-10-06 05:15:00* Test Item Value Reference Range Interpretation Comments Mean Corpuscular Hemoglobin Concent (test code = 786-4) 31.5 31-35 [facility] HospitalRDW IjfNy-Xki6338-11-09 05:15:00* Test Item Value Reference Range Interpretation Comments Red Cell Distribution Width (test code = 52300-7) 13.4 11.7 -14.4 [facility] HospitalAutomated blood platelet count (count/volume)2019-10-06 05:15:00* Test Item Value Reference Range Interpretation Comments Platelet Count (test code = 777-3) 243 140-360 [facility] HospitalAutomated blood segmented neutrophil count as percentage of total phjqszxnji6114-43-43 05:15:00* Test Item Value Reference Range Interpretation Comments Neutrophils (%) (Auto) (test code = 34188-5) 57.1 38.7-80.0 [facility] HospitalAutomated blood lymphocyte count as percentage ot total ovplvksmbf1077-88-98 05:15:00* Test Item Value Reference Range Interpretation Comments Lymphocytes (%) (Auto) (test code = 736-9) 31.9 18.0-39.1 [facility] HospitalAutomated blood monocyte count as percentage of total kytmlsnhfg0227-93-50 05:15:00* Test Item Value Reference Range Interpretation Comments Monocytes (%) (Auto) (test code = 5905-5) 7.8 4.4-11.3 [facility] HospitalAutomated blood eosinophil count as percentage of total pfhjdyguzv8856-04-37 05:15:00* Test Item Value Reference Range Interpretation Comments Eosinophils (%) (Auto) (test code = 713-8) 2.2 0.0-6.0 [facility] HospitalAutomated blood basophil count as percentage of total jllrdlpauj7971-84-66 05:15:00* Test Item Value Reference Range Interpretation Comments Basophils (%) (Auto) (test code = 706-2) 0.9 0.0-1.0 [facility] HospitalFluoroscopic procedure less than one hour [id number] 05:15:00* Test Item Value Reference Range Interpretation Comments IM GRANULOCYTES % (test code = IM GRANULOCYTES %) 0.1 0.0- 1.0 [facility] HospitalAutomated blood neutrophil count 2019-10-06 05:15:00* Test Item Value Reference Range Interpretation Comments Neutrophils # (Auto) (test code = 751-8) 4.5 2.1-6.9 [facility] HospitalBlood lymphocytes count (number/volume) 2019-10-06 05:15:00* Test Item Value Reference Range Interpretation Comments Lymphocytes # (Auto) (test code = 88159-5) 2.5 1.0-3.2 [facility] HospitalBlood monocytes automated count (number/volume)2019-10-06 05:15:00* Test Item Value Reference Range Interpretation Comments Monocytes # (Auto) (test code = 742-7) 0.6 0.2-0.8 [facility] HospitalAutomated blood eosinophil count 2019-10-06 05:15:00* Test Item Value Reference Range Interpretation Comments Eosinophils # (Auto) (test code = 711-2) 0.2 0.0-0.4 [facility] HospitalAutomated blood basophil count (count/volume)2019-10-06 05:15:00* Test Item Value Reference Range Interpretation Comments Basophils # (Auto) (test code = 704-7) 0.1 0.0-0.1 [facility] HospitalFluoroscopic procedure less than one hour vacokaen8322-80-09 05:15:00* Test Item Value Reference Range Interpretation Comments Absolute Immature Granulocyte (auto (zeenat t code = Absolute Immature Granulocyte (auto) 0.01 0-0.1 [facility] sodium measurement (moles/volume)2019-10-06 05:15:00* Test Item Value Reference Range Interpretation Comments Sodium Level (test code = 2951-2) 135 136-145 [facility]ne[facility] plasma potassium measurement (moles/volume)2019-10-06 05:15:00* Test Item Value Reference Range Interpretation Comments Potassium Level (test code = 2823-3) 3.4 3.5-5.1 [facility] plasma chloride measurement (moles/volume)2019-10-06 05:15:00* Test Item Value Reference Range Interpretation Comments Chloride Level (test code = 2075-0) 99 98-107 [facility]ne[facility]um or plasma carbon dioxide, total measurement (moles/volume)2019-10-06 05:15:00* Test Item Value Reference Range Interpretation Comments Carbon Dioxide Level (test code = 2028-9) 29 22-29 [facility]um or plasma anion dbf1122-34-88 05:15:00* Test Item Value Reference Range Interpretation Comments Anion Gap (test code = 00818-1) 10.4 8-16 [facility]er[facility] plasma urea nitrogen measurement (mass/volume)2019-10-06 05:15:00* Test Item Value Reference Range Interpretation Comments Blood Urea Nitrogen (test code = 3094-0) < 5 7-26 [facility] or plasma creatinine measurement (mass/volume)2019-10-06 05:15:00* Test Item Value Reference Range Interpretation Comments Creatinine (test code = 2160-0) 1.04 0.72-1.25 [facility] or plasma urea nitrogen/creatinine mass oplxs9352-45-47 05:15:00* Test Item Value Reference Range Interpretation Comments BUN/Creatinine Ratio (test code = 3097-3) 5 6-25 [facility] HospitalEstimated glomerular filtration rate (GFR) bevofcnbiykpb7505-12-54 05:15:00* Test Item Value Reference Range Interpretation Comments Estimat Glomerular Filtration Rate (test code = 271378864) > 60 >60 Ranges were taken from the National Kidney Disease Education Program and the [facility] Foundation literature.Reference ranges:60 or greater: Bawrep61-03 ( for 3 consecutive months): Chronic kidney disease 15 or less: Kidney failureHarris [facility] HospitalGlucose gtpvixqhaca7045-92-72 05:15:00* Test Item Value Reference Range Interpretation Comments Glucose Level (test code = HQZ9620) 202 74-118 [facility]erum or plasma calcium measurement (mass/volume)2019-10-06 05:15:00* Test Item Value Reference Range Interpretation Comments Calcium Level (test code = 50117-0) 8.7 8.4-10.2 [facility] HospitalCapillary blood glucose measurement by glucometer (mass/volume)2019-10-05 19:48:00* Test Item Value Reference Range Interpretation Comments Bedside Glucose (test code = 56340-1) 233 70-120 Meter ID: [id number] Health System [facility] HospitalUrine color nuxxnghvqygrf6145-33-02 06:00:00* Test Item Value Reference Range Interpretation Comments Urine Color (test code = 5778-6) YELLOW YELLOW [facility] HospitalUrine eqkfpsn4864-57-68 06:00:00* Test Item Value Reference Range Interpretation Comments Urine Clarity (test code = 52108-4) CLEAR CLEAR [facility]nepecific gravity of Urine by Test strip 2019-10-05 06:00:00* Test Item Value Reference Range Interpretation Comments Urine Specific [place] (test code = 5811-5) 1.020 1.010-1.02 5 [facility] HospitalUrine pH measurement by automated test jdjxv9885-43-42 06:00:00* Test Item Value Reference Range Interpretation Comments Urine pH (test code = 17568-2) 7.5 5-7 [facility] HospitalUrine leukocyte esterase detection by itlnrapo7342-33-68 06:00:00* Test Item Value Reference Range Interpretation Comments Urine Leukocyte Esterase (test code = 5799-2) NEGATIVE NEGATIVE [facility] HospitalUrine nitrite nklnpriah4938-00-44 06:00:00* Test Item Value Reference Range Interpretation Comments Urine Nitrite (test code = 47737-4) NEGATIVE NEGATIVE [facility] HospitalUrine protein measurement by test strip (mass/volume)2019-10-05 06:00:00* Test Item Value Reference Range Interpretation Comments Urine Protein (test code = 5804-0) NEGATIVE NEGATIVE [facility] HospitalUrine glucose iewnrgdvi3973-50-96 06:00:00* Test Item Value Reference Range Interpretation Comments Urine Glucose (UA) (test code = 2349-9) 2+ NEGATIVE [facility] HospitalUrine ketones detection by automated test jwazw2324-17-06 06:00:00* Test Item Value Reference Range Interpretation Comments Urine Ketones (test code = 97606-4) TRACE NEGATIVE [facility] HospitalUrine opiates screening osws7236-67-36 06:00:00* Test Item Value Reference Range Interpretation Comments Urine Opiates Screen (test code = 39773-2) POSITIVE NEGATIVE This test provides only a screen. Positive results should be repeated by a confi rmatory test.[facility] HospitalBarbiturates screen, urine 2019-10-05 06:00:00* Test Item Value Reference Range Interpretation Comments Urine Barbiturates Screen (test code = 186287085) NEGATIVE NEGA TIVE [facility] HospitalUrine phencyclidine detection by screening oecqfs8589-16-36 06:00:00* Test Item Value Reference Range Interpretation Comments Urine Phencyclidine Screen (test code = 38230-2) NEGATIVE NEGAT GILSON [facility] HospitalUrine amphetamines detection by screen method > 1000 ng/qA8564-93-89 06:00:00* Test Item Value Reference Range Interpretation Comments Urine Amphetamines Screen (test code = 61980-1) NEGATIVE NEGATI VE [facility] HospitalFluoroscopic procedure less than one hour cxymaify2399-83-01 06:00:00* Test Item Value Reference Range Interpretation Comments Urine Methamphetamines Screen (test code = Urine Metha mphetamines Screen) NEGATIVE NEGATIVE [facility] HospitalUrine benzodiazepines detection by screening dhwfri6402-81-27 06:00:00* Test Item Value Reference Range Interpretation Comments Urine Benzodiazepines Screen (test code = 42045-2) NEGATIVE NEG ATIVE [facility] HospitalUrine cocaine measurement (mass/volume) 2019-10-05 06:00:00* Test Item Value Reference Range Interpretation Comments Urine Cocaine Screen (test code = 3398-5) NEGATIVE NEGATIVE [facility] HospitalUrine cannabinoids detection by screening oiyfeu0025-94-35 06:00:00* Test Item Value Reference Range Interpretation Comments Urine Cannabinoids Screen (test code = 11027-2) POSITIVE NEGATI VE This test provides only a screen. Positive results should be repeated by a confi rmatory test.[facility] HospitalUrine methadone screen 2019-10-05 06:00:00* Test Item Value Reference Range Interpretation Comments Urine Methadone Screen (test code = 90568-9) NEGATIVE NEGATIVE THESE RESULTS ARE FOR MEDICAL TREATMENT ONLYTHIS REPORT CONTAINS UNCONFIR MED SCREENING RESULTS*POSITIVE RESULTS WILL BE CONFIRMED BY REFERENCE LAB UPON R EQUEST CUT-OFFDRUG CLASS CONCENTRATION ng/mLAmphetamines 1000Methamphetamines 1000Cocaine Metabolite 300Opiate 300Phencyc lidine 25Cannabinoid 50Barbiturates 300Benzodiazepine 300Methadone 300[facility] urobilinogen measurement by test strip (mass/volume)2019-10-05 06:00:00* Test Item Value Reference Range Interpretation Comments Urine Urobilinogen (test code = 93269-4) 0.2 0.2-1 [facility] HospitalUrine total bilirubin measurement (mass/volume)2019-10-05 06:00:00* Test Item Value Reference Range Interpretation Comments Urine Bilirubin (test code = 1978-6) NEGATIVE NEGATIVE [facility] HospitalUrine erythrocytes tknqmkutd0377-73-34 06:00:00* Test Item Value Reference Range Interpretation Comments Urine Blood (test code = 82268-8) TRACE NEGATIVE [facility] HospitalAutomated urine sediment leukocyte count by microscopy (number/high power field)2019-10-05 06:00:00* Test Item Value Reference Range Interpretation Comments Urine WBC (test code = 5821-4) 0-5 0-5 [facility] HospitalErythrocytes detection in urine sediment by light dqiopztiwt4606-47-01 06:00:00* Test Item Value Reference Range Interpretation Comments Urine RBC (test code = 18962-9) 0-5 0-5 [facility] HospitalBacteria detection in urine sediment by light ibduvxwrij4732-54-28 06:00:00* Test Item Value Reference Range Interpretation Comments Urine Bacteria (test code = 76037-7) RARE NONE [facility] HospitalEpithelial cells detection in urine sediment by light ssfunpdmwu0771-66-61 06:00:00* Test Item Value Reference Range Interpretation Comments Urine Epithelial Cells (test code = 01158-9) RARE NONE [facility] HospitalUrine color kdujxyqnrgocb1515-87-88 06:00:00* Test Item Value Reference Range Interpretation Comments Urine Color (test code = 5778-6) YELLOW YELLOW [facility] HospitalUrine rpkjjno8839-39-80 06:00:00* Test Item Value Reference Range Interpretation Comments Urine Clarity (test code = 91494-2) CLEAR CLEAR [facility]nepecific gravity of Urine by Test strip 2019-10-05 06:00:00* Test Item Value Reference Range Interpretation Comments Urine Specific [place] (test code = 5811-5) 1.020 1.010-1.02 5 [facility] HospitalUrine pH measurement by automated test cuhil0429-12-11 06:00:00* Test Item Value Reference Range Interpretation Comments Urine pH (test code = 40525-9) 7.5 5-7 [facility] HospitalUrine leukocyte esterase detection by ssmdjwzp7740-10-72 06:00:00* Test Item Value Reference Range Interpretation Comments Urine Leukocyte Esterase (test code = 5799-2) NEGATIVE NEGATIVE [facility] HospitalUrine nitrite lzunkptgt9624-26-84 06:00:00* Test Item Value Reference Range Interpretation Comments Urine Nitrite (test code = 92206-5) NEGATIVE NEGATIVE [facility] HospitalUrine protein measurement by test strip (mass/volume)2019-10-05 06:00:00* Test Item Value Reference Range Interpretation Comments Urine Protein (test code = 5804-0) NEGATIVE NEGATIVE [facility] HospitalUrine glucose oskusvdha8546-76-94 06:00:00* Test Item Value Reference Range Interpretation Comments Urine Glucose (UA) (test code = 2349-9) 2+ NEGATIVE [facility] HospitalUrine ketones detection by automated test drgup2995-24-60 06:00:00* Test Item Value Reference Range Interpretation Comments Urine Ketones (test code = 34534-1) TRACE NEGATIVE [facility] HospitalUrine opiates screening uxfm0559-07-65 06:00:00* Test Item Value Reference Range Interpretation Comments Urine Opiates Screen (test code = 93459-6) POSITIVE NEGATIVE This test provides only a screen. Positive results should be repeated by a confi rmatory test.[facility] HospitalBarbiturates screen, urine 2019-10-05 06:00:00* Test Item Value Reference Range Interpretation Comments Urine Barbiturates Screen (test code = 822068943) NEGATIVE NEGA TIVE [facility] HospitalUrine phencyclidine detection by screening fqgfvt0315-02-42 06:00:00* Test Item Value Reference Range Interpretation Comments Urine Phencyclidine Screen (test code = 11022-2) NEGATIVE NEGAT GILSON [facility] HospitalUrine amphetamines detection by screen method > 1000 ng/mF7309-99-67 06:00:00* Test Item Value Reference Range Interpretation Comments Urine Amphetamines Screen (test code = 59594-1) NEGATIVE NEGATI VE [facility] HospitalFluoroscopic procedure less than one hour rcfxdhja5850-53-28 06:00:00* Test Item Value Reference Range Interpretation Comments Urine Methamphetamines Screen (test code = Urine Metha mphetamines Screen) NEGATIVE NEGATIVE [facility] HospitalUrine benzodiazepines detection by screening qjjryj5983-51-43 06:00:00* Test Item Value Reference Range Interpretation Comments Urine Benzodiazepines Screen (test code = 57259-0) NEGATIVE NEG ATIVE [facility] HospitalUrine cocaine measurement (mass/volume) 2019-10-05 06:00:00* Test Item Value Reference Range Interpretation Comments Urine Cocaine Screen (test code = 3398-5) NEGATIVE NEGATIVE [facility] HospitalUrine cannabinoids detection by screening trdpko9708-36-09 06:00:00* Test Item Value Reference Range Interpretation Comments Urine Cannabinoids Screen (test code = 97461-1) POSITIVE NEGATI VE This test provides only a screen. Positive results should be repeated by a confi rmatory test.[facility] HospitalUrine methadone screen 2019-10-05 06:00:00* Test Item Value Reference Range Interpretation Comments Urine Methadone Screen (test code = 45814-4) NEGATIVE NEGATIVE THESE RESULTS ARE FOR MEDICAL TREATMENT ONLYTHIS REPORT CONTAINS UNCONFIR MED SCREENING RESULTS*POSITIVE RESULTS WILL BE CONFIRMED BY REFERENCE LAB UPON R EQUEST CUT-OFFDRUG CLASS CONCENTRATION ng/mLAmphetamines 1000Methamphetamines 1000Cocaine Metabolite 300Opiate 300Phencyc lidine 25Cannabinoid 50Barbiturates 300Benzodiazepine 300Methadone 300[facility] HospitalUrine urobilinogen measurement by test strip (mass/volume)2019-10-05 06:00:00* Test Item Value Reference Range Interpretation Comments Urine Urobilinogen (test code = 49127-7) 0.2 0.2-1 [facility] HospitalUrine total bilirubin measurement (mass/volume)2019-10-05 06:00:00* Test Item Value Reference Range Interpretation Comments Urine Bilirubin (test code = 1978-6) NEGATIVE NEGATIVE [facility] HospitalUrine erythrocytes mxpbwvfcu4729-51-34 06:00:00* Test Item Value Reference Range Interpretation Comments Urine Blood (test code = 60645-2) TRACE NEGATIVE [facility] HospitalAutomated urine sediment leukocyte count by microscopy (number/high power field)2019-10-05 06:00:00* Test Item Value Reference Range Interpretation Comments Urine WBC (test code = 5821-4) 0-5 0-5 [facility] HospitalErythrocytes detection in urine sediment by light orptswdbpd3579-61-21 06:00:00* Test Item Value Reference Range Interpretation Comments Urine RBC (test code = 92357-0) 0-5 0-5 [facility] HospitalBacteria detection in urine sediment by light xtfismztep4955-97-09 06:00:00* Test Item Value Reference Range Interpretation Comments Urine Bacteria (test code = 29012-3) RARE NONE [facility] HospitalEpithelial cells detection in urine sediment by light nqshmcyzic7285-91-90 06:00:00* Test Item Value Reference Range Interpretation Comments Urine Epithelial Cells (test code = 78497-1) RARE NONE [facility] HospitalUrine color norzsninntsmc3615-55-04 06:00:00* Test Item Value Reference Range Interpretation Comments Urine Color (test code = 5778-6) YELLOW YELLOW [facility] HospitalUrine nuntuhx8739-38-88 06:00:00* Test Item Value Reference Range Interpretation Comments Urine Clarity (test code = 65990-1) CLEAR CLEAR [facility] gravity of Urine by Test strip 2019-10-05 06:00:00* Test Item Value Reference Range Interpretation Comments Urine Specific [place] (test code = 5811-5) 1.020 1.010-1.02 5 [facility] HospitalUrine pH measurement by automated test vldsn2046-20-69 06:00:00* Test Item Value Reference Range Interpretation Comments Urine pH (test code = 75857-5) 7.5 5-7 [facility] HospitalUrine leukocyte esterase detection by fexvigky9508-00-91 06:00:00* Test Item Value Reference Range Interpretation Comments Urine Leukocyte Esterase (test code = 5799-2) NEGATIVE NEGATIVE [facility] HospitalUrine nitrite jfzgufpxh9483-78-65 06:00:00* Test Item Value Reference Range Interpretation Comments Urine Nitrite (test code = 22877-3) NEGATIVE NEGATIVE [facility] HospitalUrine protein measurement by test strip (mass/volume)2019-10-05 06:00:00* Test Item Value Reference Range Interpretation Comments Urine Protein (test code = 5804-0) NEGATIVE NEGATIVE [facility] HospitalUrine glucose psrbrisyo1183-07-00 06:00:00* Test Item Value Reference Range Interpretation Comments Urine Glucose (UA) (test code = 2349-9) 2+ NEGATIVE [facility] HospitalUrine ketones detection by automated test bmrtk1520-44-29 06:00:00* Test Item Value Reference Range Interpretation Comments Urine Ketones (test code = 90065-6) TRACE NEGATIVE [facility] HospitalUrine opiates screening thkz3929-29-27 06:00:00* Test Item Value Reference Range Interpretation Comments Urine Opiates Screen (test code = 25586-8) POSITIVE NEGATIVE This test provides only a screen. Positive results should be repeated by a confi rmatory test.[facility] HospitalBarbiturates screen, urine 2019-10-05 06:00:00* Test Item Value Reference Range Interpretation Comments Urine Barbiturates Screen (test code = 855383929) NEGATIVE NEGA TIVE [facility] HospitalUrine phencyclidine detection by screening sxnfig7812-16-73 06:00:00* Test Item Value Reference Range Interpretation Comments Urine Phencyclidine Screen (test code = 78473-9) NEGATIVE NEGAT GILSON [facility] HospitalUrine amphetamines detection by screen method > 1000 ng/rF2033-16-58 06:00:00* Test Item Value Reference Range Interpretation Comments Urine Amphetamines Screen (test code = 77259-0) NEGATIVE NEGATI VE [facility] HospitalFluoroscopic procedure less than one hour tvrslgzv6436-18-81 06:00:00* Test Item Value Reference Range Interpretation Comments Urine Methamphetamines Screen (test code = Urine Metha mphetamines Screen) NEGATIVE NEGATIVE [facility] HospitalUrine benzodiazepines detection by screening xrksdk0401-45-66 06:00:00* Test Item Value Reference Range Interpretation Comments Urine Benzodiazepines Screen (test code = 53646-4) NEGATIVE NEG ATIVE [facility] HospitalUrine cocaine measurement (mass/volume) 2019-10-05 06:00:00* Test Item Value Reference Range Interpretation Comments Urine Cocaine Screen (test code = 3398-5) NEGATIVE NEGATIVE [facility] HospitalUrine cannabinoids detection by screening duwcaf9702-28-73 06:00:00* Test Item Value Reference Range Interpretation Comments Urine Cannabinoids Screen (test code = 72187-4) POSITIVE NEGATI VE This test provides only a screen. Positive results should be repeated by a confi rmatory test.[facility] HospitalUrine methadone screen 2019-10-05 06:00:00* Test Item Value Reference Range Interpretation Comments Urine Methadone Screen (test code = 34814-2) NEGATIVE NEGATIVE THESE RESULTS ARE FOR MEDICAL TREATMENT ONLYTHIS REPORT CONTAINS UNCONFIR MED SCREENING RESULTS*POSITIVE RESULTS WILL BE CONFIRMED BY REFERENCE LAB UPON R EQUEST CUT-OFFDRUG CLASS CONCENTRATION ng/mLAmphetamines 1000Methamphetamines 1000Cocaine Metabolite 300Opiate 300Phencyc lidine 25Cannabinoid 50Barbiturates 300Benzodiazepine 300Methadone 300[facility] PasoUrine urobilinogen measurement by test strip (mass/volume)2019-10-05 06:00:00* Test Item Value Reference Range Interpretation Comments Urine Urobilinogen (test code = 34922-7) 0.2 0.2-1 [facility] HospitalUrine total bilirubin measurement (mass/volume)2019-10-05 06:00:00* Test Item Value Reference Range Interpretation Comments Urine Bilirubin (test code = 1978-6) NEGATIVE NEGATIVE [facility] HospitalUrine erythrocytes ohdnvivyo4944-68-35 06:00:00* Test Item Value Reference Range Interpretation Comments Urine Blood (test code = 35145-7) TRACE NEGATIVE [facility] HospitalAutomated urine sediment leukocyte count by microscopy (number/high power field)2019-10-05 06:00:00* Test Item Value Reference Range Interpretation Comments Urine WBC (test code = 5821-4) 0-5 0-5 [facility] HospitalErythrocytes detection in urine sediment by light yegkkdwlbk8504-14-38 06:00:00* Test Item Value Reference Range Interpretation Comments Urine RBC (test code = 26203-2) 0-5 0-5 [facility] HospitalBacteria detection in urine sediment by light qktrjhpdjx1849-35-88 06:00:00* Test Item Value Reference Range Interpretation Comments Urine Bacteria (test code = 06884-1) RARE NONE [facility] HospitalEpithelial cells detection in urine sediment by light xbrdklyxey7820-42-43 06:00:00* Test Item Value Reference Range Interpretation Comments Urine Epithelial Cells (test code = 48539-9) RARE NONE [facility] HospitalUrine color stydxistiorxe0454-18-60 06:00:00* Test Item Value Reference Range Interpretation Comments Urine Color (test code = 5778-6) YELLOW YELLOW [facility] HospitalUrine ldafmip6371-82-00 06:00:00* Test Item Value Reference Range Interpretation Comments Urine Clarity (test code = 91294-6) CLEAR CLEAR [facility] gravity of Urine by Test strip 2019-10-05 06:00:00* Test Item Value Reference Range Interpretation Comments Urine Specific [place] (test code = 5811-5) 1.020 1.010-1.02 5 [facility] HospitalUrine pH measurement by automated test wsszw3851-53-44 06:00:00* Test Item Value Reference Range Interpretation Comments Urine pH (test code = 52079-7) 7.5 5-7 [facility] HospitalUrine leukocyte esterase detection by xfogwgxk4987-04-61 06:00:00* Test Item Value Reference Range Interpretation Comments Urine Leukocyte Esterase (test code = 5799-2) NEGATIVE NEGATIVE [facility] HospitalUrine nitrite puhvjcnqd0369-67-08 06:00:00* Test Item Value Reference Range Interpretation Comments Urine Nitrite (test code = 29803-2) NEGATIVE NEGATIVE [facility] HospitalUrine protein measurement by test strip (mass/volume)2019-10-05 06:00:00* Test Item Value Reference Range Interpretation Comments Urine Protein (test code = 5804-0) NEGATIVE NEGATIVE [facility] HospitalUrine glucose sapfccmwy7876-57-99 06:00:00* Test Item Value Reference Range Interpretation Comments Urine Glucose (UA) (test code = 2349-9) 2+ NEGATIVE [facility] [facility] by automated test [id number] 06:00:00* Test Item Value Reference Range Interpretation Comments Urine Ketones (test code = 80099-7) [facility]ACE NEGATIVE [facility] opiates screening [id number] 06:00:00* Test Item Value Reference Range Interpretation Comments Urine Opiates Screen (test code = 79024-1) POSITIVE NEGATIVE This test provides only a screen. Positive results should be repeated by a confi rmatory test.[facility] HospitalBarbit[facility]ates screen, urine 2019-10-05 06:00:00* Test Item Value Reference Range Interpretation Comments Urine Barbiturates Screen (test code = 496185552) NEGATIVE NEGA TIVE [facility] HospitalUrine phencyclidine detection by screening nikelv8444-19-22 06:00:00* Test Item Value Reference Range Interpretation Comments Urine Phencyclidine Screen (test code = 97627-8) NEGATIVE NEGAT GILSON [facility] HospitalUrine amphetamines detection by screen method > 1000 ng/dN5494-87-30 06:00:00* Test Item Value Reference Range Interpretation Comments Urine Amphetamines Screen (test code = 52430-2) NEGATIVE NEGATI VE [facility] HospitalFluoroscopic procedure less than one hour pcuxpumg5614-86-89 06:00:00* Test Item Value Reference Range Interpretation Comments Urine Methamphetamines Screen (test code = Urine Metha mphetamines Screen) NEGATIVE NEGATIVE [facility] HospitalUrine benzodiazepines detection by screening ibaafb5276-38-53 06:00:00* Test Item Value Reference Range Interpretation Comments Urine Benzodiazepines Screen (test code = 40847-2) NEGATIVE NEG ATIVE [facility] HospitalU[facility] cocaine measurement (mass/volume) 2019-10-05 06:00:00* Test Item Value Reference Range Interpretation Comments Urine Cocaine Screen (test code = 3398-5) NEGATIVE NEGATIVE [facility] HospitalUrine cannabinoids detection by screening lunzwn6480-70-29 06:00:00* Test Item Value Reference Range Interpretation Comments Urine Cannabinoids Screen (test code = 19422-0) POSITIVE NEGATI VE This test provides only a screen. Positive results should be repeated by a confi rmatory test.[facility] methadone screen 2019-10-05 06:00:00* Test Item Value Reference Range Interpretation Comments Urine Methadone Screen (test code = 08604-4) NEGATIVE NEGATIVE THESE RESULTS ARE FOR MEDICAL TREATMENT ONLYTHIS REPORT CONTAINS UNCONFIR MED SCREENING RESULTS*POSITIVE RESULTS WILL BE CONFIRMED BY REFERENCE LAB UPON R EQUEST CUT-OFFDRUG CLASS CONCENTRATION ng/mLAmphetamines 1000Methamphetamines 1000Cocaine Metabolite 300Opiate 300Phencyc lidine 25Cannabinoid 50Barbiturates 300Benzodiazepine 300Methadone 300[facility] HospitalUrine urobilinogen measurement by test strip (mass/volume)2019-10-05 06:00:00* Test Item Value Reference Range Interpretation Comments Urine Urobilinogen (test code = 54104-1) 0.2 0.2-1 [facility] HospitalUrine total bilirubin measurement (mass/volume)2019-10-05 06:00:00* Test Item Value Reference Range Interpretation Comments Urine Bilirubin (test code = 1978-6) NEGATIVE NEGATIVE [facility] HospitalUrine erythrocytes [id number] 06:00:00* Test Item Value Reference Range Interpretation Comments Urine Blood (test code = 65712-2) TRACE NEGATIVE [facility] HospitalAutomated urine sediment leukocyte count by microscopy (number/high power field)2019-10-05 06:00:00* Test Item Value Reference Range Interpretation Comments Urine WBC (test code = 5821-4) 0-5 0-5 [facility] HospitalErythrocytes detection in urine sediment by light rmmplcchtl1170-36-85 06:00:00* Test Item Value Reference Range Interpretation Comments Urine RBC (test code = 58388-4) 0-5 0-5 [facility] HospitalBacteria detection in urine sediment by light qppmvrvwbn2517-95-31 06:00:00* Test Item Value Reference Range Interpretation Comments Urine Bacteria (test code = 51878-7) RARE NONE [facility] HospitalEpithelial cells detection in urine sediment by light lzegpihcba5196-03-75 06:00:00* Test Item Value Reference Range Interpretation Comments Urine Epithelial Cells (test code = 24401-3) RARE NONE [facility] HospitalUrine color dehpdgmfzcxcn7259-30-81 06:00:00* Test Item Value Reference Range Interpretation Comments Urine Color (test code = 5778-6) YELLOW YELLOW [facility] HospitalUrine lfzbasb8036-80-81 06:00:00* Test Item Value Reference Range Interpretation Comments Urine Clarity (test code = 01925-6) CLEAR CLEAR [facility] Urine by Test strip 2019-10-05 06:00:00* Test Item Value Reference Range Interpretation Comments Urine Specific [place] (test code = 5811-5) 1.020 1.010-1.02 5 [facility] HospitalU[facility] pH measurement by automated test [id number] 06:00:00* Test Item Value Reference Range Interpretation Comments Urine pH (test code = 78157-4) 7.5 5-7 [facility] HospitalUrine leukocyte esterase detection by xtjkewhu2067-18-31 06:00:00* Test Item Value Reference Range Interpretation Comments Urine Leukocyte Esterase (test code = 5799-2) NEGATIVE NEGATIVE [facility] HospitalUrine nitrite eoqhxdsjc0349-82-90 06:00:00* Test Item Value Reference Range Interpretation Comments Urine Nitrite (test code = 45991-6) NEGATIVE NEGATIVE [facility] HospitalUrine protein measurement by test strip (mass/volume)2019-10-05 06:00:00* Test Item Value Reference Range Interpretation Comments Urine Protein (test code = 5804-0) NEGATIVE NEGATIVE [facility] HospitalUrine glucose wgkeycpoe8496-28-16 06:00:00* Test Item Value Reference Range Interpretation Comments Urine Glucose (UA) (test code = 2349-9) 2+ NEGATIVE [facility] HospitalUrine ketones detection by automated test [id number] 06:00:00* Test Item Value Reference Range Interpretation Comments Urine Ketones (test code = 37479-8) TRACE NEGATIVE [facility] HospitalUrine opiates screening [id number] 06:00:00* Test Item Value Reference Range Interpretation Comments Urine Opiates Screen (test code = 97971-0) POSITIVE NEGATIVE This test provides only a screen. Positive results should be repeated by a confi rmatory test.[facility] HospitalBarbiturates screen, urine 2019-10-05 06:00:00* Test Item Value Reference Range Interpretation Comments Urine Barbiturates Screen (test code = 872098885) NEGATIVE NEGA TIVE [facility] HospitalUrine phencyclidine detection by screening [id number] 06:00:00* Test Item Value Reference Range Interpretation Comments Urine Phencyclidine Screen (test code = 07230-3) NEGATIVE NEGAT GILSON [facility] HospitalUrine amphetamines detection by screen method > 1000 ng/fH2417-70-76 06:00:00* Test Item Value Reference Range Interpretation Comments Urine Amphetamines Screen (test code = 13718-1) NEGATIVE NEGATI VE [facility] HospitalFluoroscopic procedure less than one hour owpygikh2576-89-25 06:00:00* Test Item Value Reference Range Interpretation Comments Urine Methamphetamines Screen (test code = Urine Metha mphetamines Screen) NEGATIVE NEGATIVE [facility] HospitalUrine benzodiazepines detection by screening uumwhf3764-13-74 06:00:00* Test Item Value Reference Range Interpretation Comments Urine Benzodiazepines Screen (test code = 11107-5) NEGATIVE NEG ATIVE [facility] HospitalUrine cocaine measurement (mass/volume) 2019-10-05 06:00:00* Test Item Value Reference Range Interpretation Comments Urine Cocaine Screen (test code = 3398-5) NEGATIVE NEGATIVE [facility] HospitalUrine cannabinoids detection by screening gbcaiw6548-30-76 06:00:00* Test Item Value Reference Range Interpretation Comments Urine Cannabinoids Screen (test code = 90308-0) POSITIVE NEGATI VE This test provides only a screen. Positive results should be repeated by a confi rmatory test.[facility] HospitalU[facility] methadone screen 2019-10-05 06:00:00* Test Item Value Reference Range Interpretation Comments Urine Methadone Screen (test code = 49454-7) NEGATIVE NEGATIVE THESE RESULTS ARE FOR MEDICAL TREATMENT ONLYTHIS REPORT CONTAINS UNCONFIR MED SCREENING RESULTS*POSITIVE RESULTS WILL BE CONFIRMED BY REFERENCE LAB UPON R EQUEST CUT-OFFDRUG CLASS CONCENTRATION ng/mLAmphetamines 1000Methamphetamines 1000Cocaine Metabolite 300Opiate 300Phencyc lidine 25Cannabinoid 50Barbiturates 300Benzodiazepine 300Methadone 300[facility] HospitalUrine urobilinogen measurement by test strip (mass/volume)2019-10-05 06:00:00* Test Item Value Reference Range Interpretation Comments Urine Urobilinogen (test code = 24793-1) 0.2 0.2-1 [facility] HospitalUrine total bilirubin measurement (mass/volume)2019-10-05 06:00:00* Test Item Value Reference Range Interpretation Comments Urine Bilirubin (test code = 1978-6) NEGATIVE NEGATIVE [facility] HospitalUrine erythrocytes mtikbtnuu4592-82-25 06:00:00* Test Item Value Reference Range Interpretation Comments Urine Blood (test code = 10197-5) TRACE NEGATIVE [facility] HospitalAutomated urine sediment leukocyte count by microscopy (number/high power field)2019-10-05 06:00:00* Test Item Value Reference Range Interpretation Comments Urine WBC (test code = 5821-4) 0-5 0-5 [facility] HospitalErythrocytes detection in urine sediment by light tirxdqakgl8477-29-40 06:00:00* Test Item Value Reference Range Interpretation Comments Urine RBC (test code = 23388-0) 0-5 0-5 [facility] HospitalBacteria detection in urine sediment by light zvyqbxxsmk5405-41-77 06:00:00* Test Item Value Reference Range Interpretation Comments Urine Bacteria (test code = 72640-4) RARE NONE [facility] HospitalEpithelial cells detection in urine sediment by light vrvvldidsg6276-26-37 06:00:00* Test Item Value Reference Range Interpretation Comments Urine Epithelial Cells (test code = 65636-9) RARE NONE [facility] HospitalUrine color jhtlofkdkvvib7574-88-02 06:00:00* Test Item Value Reference Range Interpretation Comments Urine Color (test code = 5778-6) YELLOW YELLOW [facility] HospitalUrine bmorzpy3456-32-83 06:00:00* Test Item Value Reference Range Interpretation Comments Urine Clarity (test code = 70999-6) CLEAR CLEAR [facility]pecific gravity of Urine by Test strip 2019-10-05 06:00:00* Test Item Value Reference Range Interpretation Comments Urine Specific [place] (test code = 5811-5) 1.020 1.010-1.02 5 [facility] pH measurement by automated test [id number] 06:00:00* Test Item Value Reference Range Interpretation Comments Urine pH (test code = 49465-1) 7.5 5-7 [facility] HospitalUrine leukocyte esterase detection by lernmfbx7333-17-39 06:00:00* Test Item Value Reference Range Interpretation Comments Urine Leukocyte Esterase (test code = 5799-2) NEGATIVE NEGATIVE [facility] HospitalUrine nitrite ynnqussaa3046-73-66 06:00:00* Test Item Value Reference Range Interpretation Comments Urine Nitrite (test code = 13200-3) NEGATIVE NEGATIVE [facility] HospitalUrine protein measurement by test strip (mass/volume)2019-10-05 06:00:00* Test Item Value Reference Range Interpretation Comments Urine Protein (test code = 5804-0) NEGATIVE NEGATIVE [facility] HospitalUrine glucose usnrkevzm0883-78-11 06:00:00* Test Item Value Reference Range Interpretation Comments Urine Glucose (UA) (test code = 2349-9) 2+ NEGATIVE [facility] HospitalUrine ketones detection by automated test gkfzy0269-93-70 06:00:00* Test Item Value Reference Range Interpretation Comments Urine Ketones (test code = 93287-6) TRACE NEGATIVE [facility] HospitalUrine opiates screening dxbs8737-03-55 06:00:00* Test Item Value Reference Range Interpretation Comments Urine Opiates Screen (test code = 41817-6) POSITIVE NEGATIVE This test provides only a screen. Positive results should be repeated by a confi rmatory test.[facility] HospitalBarbiturates screen, urine 2019-10-05 06:00:00* Test Item Value Reference Range Interpretation Comments Urine Barbiturates Screen (test code = 021804517) NEGATIVE NEGA TIVE [facility] HospitalUrine phencyclidine detection by screening dadjny4933-79-55 06:00:00* Test Item Value Reference Range Interpretation Comments Urine Phencyclidine Screen (test code = 33023-0) NEGATIVE NEGAT GILSON [facility] HospitalUrine amphetamines detection by screen method > 1000 ng/nW2450-98-70 06:00:00* Test Item Value Reference Range Interpretation Comments Urine Amphetamines Screen (test code = 64191-0) NEGATIVE NEGATI VE [facility] HospitalFluoroscopic procedure less than one hour gaftbjuw0512-64-61 06:00:00* Test Item Value Reference Range Interpretation Comments Urine Methamphetamines Screen (test code = Urine Metha mphetamines Screen) NEGATIVE NEGATIVE [facility] HospitalUrine benzodiazepines detection by screening kvbqtx4741-83-15 06:00:00* Test Item Value Reference Range Interpretation Comments Urine Benzodiazepines Screen (test code = 53126-6) NEGATIVE NEG ATIVE [facility] HospitalUrine cocaine measurement (mass/volume) 2019-10-05 06:00:00* Test Item Value Reference Range Interpretation Comments Urine Cocaine Screen (test code = 3398-5) NEGATIVE NEGATIVE [facility] HospitalUrine cannabinoids detection by screening ccpwgv5104-89-97 06:00:00* Test Item Value Reference Range Interpretation Comments Urine Cannabinoids Screen (test code = 44851-1) POSITIVE NEGATI VE This test provides only a screen. Positive results should be repeated by a confi rmatory test.[facility] HospitalU[facility] methadone screen 2019-10-05 06:00:00* Test Item Value Reference Range Interpretation Comments Urine Methadone Screen (test code = 82780-0) NEGATIVE NEGATIVE THESE RESULTS ARE FOR MEDICAL TREATMENT ONLYTHIS REPORT CONTAINS UNCONFIR MED SCREENING RESULTS*POSITIVE RESULTS WILL BE CONFIRMED BY REFERENCE LAB UPON R EQUEST CUT-OFFDRUG CLASS CONCENTRATION ng/mLAmphetamines 1000Methamphetamines 1000Cocaine Metabolite 300Opiate 300Phencyc lidine 25Cannabinoid 50Barbiturates 300Benzodiazepine 300Methadone 300[facility] urobilinogen [facility] by test strip (mass/volume)2019-10-05 06:00:00* Test Item Value Reference Range Interpretation Comments Urine Urobilinogen (test code = 68127-5) 0.2 0.2-1 [facility] HospitalU[facility] total bilirubin measurement (mass/volume)2019-10-05 06:00:00* Test Item Value Reference Range Interpretation Comments Urine Bilirubin (test code = 1978-6) NEGATIVE NEGATIVE [facility] HospitalUrine erythrocytes aewaepcft5419-51-20 06:00:00* Test Item Value Reference Range Interpretation Comments Urine Blood (test code = 43682-6) TRACE NEGATIVE [facility] HospitalAutomated urine sediment leukocyte count by microscopy (number/high power field)2019-10-05 06:00:00* Test Item Value Reference Range Interpretation Comments Urine WBC (test code = 5821-4) 0-5 0-5 [facility] HospitalErythrocytes detection in urine sediment by light bhjywlazxz7887-53-88 06:00:00* Test Item Value Reference Range Interpretation Comments Urine RBC (test code = 08620-7) 0-5 0-5 [facility] HospitalBacteria detection in urine sediment by light lbbrmneerp0337-98-95 06:00:00* Test Item Value Reference Range Interpretation Comments Urine Bacteria (test code = 95176-7) RARE NONE [facility] HospitalEpithelial cells detection in urine sediment by light hxmpntfuqi6339-18-47 06:00:00* Test Item Value Reference Range Interpretation Comments Urine Epithelial Cells (test code = 24850-5) RARE NONE [facility] HospitalUrine color cgcdeylvxikqh6468-19-87 06:00:00* Test Item Value Reference Range Interpretation Comments Urine Color (test code = 5778-6) YELLOW YELLOW [facility] HospitalUrine xhlfdhf3147-40-20 06:00:00* Test Item Value Reference Range Interpretation Comments Urine Clarity (test code = 66868-2) CLEAR CLEAR [facility]nepecific gravity of Urine by Test strip 2019-10-05 06:00:00* Test Item Value Reference Range Interpretation Comments Urine Specific [place] (test code = 5811-5) 1.020 1.010-1.02 5 [facility] HospitalUrine pH measurement by automated test sdrfu6484-94-86 06:00:00* Test Item Value Reference Range Interpretation Comments Urine pH (test code = 12768-4) 7.5 5-7 [facility] HospitalUrine leukocyte esterase detection by ilsszhtw8079-12-50 06:00:00* Test Item Value Reference Range Interpretation Comments Urine Leukocyte Esterase (test code = 5799-2) NEGATIVE NEGATIVE [facility] HospitalUrine nitrite ndpukahvb4079-05-69 06:00:00* Test Item Value Reference Range Interpretation Comments Urine Nitrite (test code = 89653-3) NEGATIVE NEGATIVE [facility] HospitalUrine protein measurement by test strip (mass/volume)2019-10-05 06:00:00* Test Item Value Reference Range Interpretation Comments Urine Protein (test code = 5804-0) NEGATIVE NEGATIVE [facility] HospitalUrine glucose pavtwdybm5415-92-69 06:00:00* Test Item Value Reference Range Interpretation Comments Urine Glucose (UA) (test code = 2349-9) 2+ NEGATIVE [facility] HospitalUrine ketones detection by automated test riwms2785-30-26 06:00:00* Test Item Value Reference Range Interpretation Comments Urine Ketones (test code = 32711-8) TRACE NEGATIVE [facility] HospitalUrine opiates screening [id number] 06:00:00* Test Item Value Reference Range Interpretation Comments Urine Opiates Screen (test code = 12501-7) POSITIVE NEGATIVE This test provides only a screen. Positive results should be repeated by a confi rmatory test.[facility] HospitalBarbiturates screen, urine 2019-10-05 06:00:00* Test Item Value Reference Range Interpretation Comments Urine Barbiturates Screen (test code = 215238753) NEGATIVE NEGA TIVE [facility] HospitalUrine phencyclidine detection by screening bxqcef5624-62-61 06:00:00* Test Item Value Reference Range Interpretation Comments Urine Phencyclidine Screen (test code = 66362-7) NEGATIVE NEGAT [place]IL[place] [facility] HospitalUrine amphetamines detection by screen method > 1000 ng/fJ8751-65-03 06:00:00* Test Item Value Reference Range Interpretation Comments Urine Amphetamines Screen (test code = 42391-2) NEGATIVE NEGATI VE [facility] HospitalFluoroscopic procedure less than one hour gsnlmobt0938-80-83 06:00:00* Test Item Value Reference Range Interpretation Comments Urine Methamphetamines Screen (test code = Urine Metha mphetamines Screen) NEGATIVE NEGATIVE [facility] HospitalUrine benzodiazepines detection by screening mjnreu3096-87-59 06:00:00* Test Item Value Reference Range Interpretation Comments Urine Benzodiazepines Screen (test code = 06799-1) NEGATIVE NEG ATIVE [facility] HospitalUrine cocaine measurement (mass/volume) 2019-10-05 06:00:00* Test Item Value Reference Range Interpretation Comments Urine Cocaine Screen (test code = 3398-5) NEGATIVE NEGATIVE [facility] HospitalUrine cannabinoids detection by screening ydoenb3755-70-48 06:00:00* Test Item Value Reference Range Interpretation Comments Urine Cannabinoids Screen (test code = 70465-1) POSITIVE NEGATI VE This test provides only a screen. Positive results should be repeated by a confi rmatory test.[facility] HospitalU[facility] methadone screen 2019-10-05 06:00:00* Test Item Value Reference Range Interpretation Comments Urine Methadone Screen (test code = 75017-5) NEGATIVE NEGATIVE THESE RESULTS ARE FOR MEDICAL TREATMENT ONLYTHIS REPORT CONTAINS UNCONFIR MED SCREENING RESULTS*POSITIVE RESULTS WILL BE CONFIRMED BY REFERENCE LAB UPON R EQUEST CUT-OFFDRUG CLASS CONCENTRATION ng/mLAmphetamines 1000Methamphetamines 1000Cocaine Metabolite 300Opiate 300Phencyc lidine 25Cannabinoid 50Barbiturates 300Benzodiazepine 300Methadone 300[facility]Urine urobilinogen measurement by test strip (mass/volume)2019-10-05 06:00:00* Test Item Value Reference Range Interpretation Comments Urine Urobilinogen (test code = 54202-3) 0.2 0.2-1 [facility] HospitalUrine total bilirubin measurement (mass/volume)2019-10-05 06:00:00* Test Item Value Reference Range Interpretation Comments Urine Bilirubin (test code = 1978-6) NEGATIVE NEGATIVE [facility] HospitalUrine erythrocytes rzcnggapp6613-57-88 06:00:00* Test Item Value Reference Range Interpretation Comments Urine Blood (test code = 55612-1) TRACE NEGATIVE [facility] HospitalAutomated urine sediment leukocyte count by microscopy (number/high power field)2019-10-05 06:00:00* Test Item Value Reference Range Interpretation Comments Urine WBC (test code = 5821-4) 0-5 0-5 [facility] HospitalErythrocytes detection in urine sediment by light vrziqnjcrg5481-96-50 06:00:00* Test Item Value Reference Range Interpretation Comments Urine RBC (test code = 35976-1) 0-5 0-5 [facility] HospitalBacteria detection in urine sediment by light etejcyckyz0548-76-71 06:00:00* Test Item Value Reference Range Interpretation Comments Urine Bacteria (test code = 70128-2) RARE NONE [facility] HospitalEpithelial cells detection in urine sediment by light wopwurmtzm9489-56-45 06:00:00* Test Item Value Reference Range Interpretation Comments Urine Epithelial Cells (test code = 11293-0) RARE NONE [facility] HospitalUrine color jdmcadeoicjij6282-10-58 06:00:00* Test Item Value Reference Range Interpretation Comments Urine Color (test code = 5778-6) YELLOW YELLOW [facility] HospitalUrine gvvuysw6598-62-02 06:00:00* Test Item Value Reference Range Interpretation Comments Urine Clarity (test code = 56607-1) CLEAR CLEAR [facility]pecific gravity of Urine by Test strip 2019-10-05 06:00:00* Test Item Value Reference Range Interpretation Comments Urine Specific [place] (test code = 5811-5) 1.020 1.010-1.02 5 [facility] HospitalU[facility] pH measurement by automated test obqnh3844-07-19 06:00:00* Test Item Value Reference Range Interpretation Comments Urine pH (test code = 15344-2) 7.5 5-7 [facility] HospitalUrine leukocyte esterase detection by iqjuwxna9965-50-17 06:00:00* Test Item Value Reference Range Interpretation Comments Urine Leukocyte Esterase (test code = 5799-2) NEGATIVE NEGATIVE [facility] HospitalUrine nitrite rfiadzzkr5058-16-17 06:00:00* Test Item Value Reference Range Interpretation Comments Urine Nitrite (test code = 60351-6) NEGATIVE NEGATIVE [facility] HospitalUrine protein measurement by test strip (mass/volume)2019-10-05 06:00:00* Test Item Value Reference Range Interpretation Comments Urine Protein (test code = 5804-0) NEGATIVE NEGATIVE [facility] HospitalUrine glucose wpyoucdcb1176-11-62 06:00:00* Test Item Value Reference Range Interpretation Comments Urine Glucose (UA) (test code = 2349-9) 2+ NEGATIVE [facility] HospitalUrine ketones detection by automated test htaeq0552-71-11 06:00:00* Test Item Value Reference Range Interpretation Comments Urine Ketones (test code = 86041-5) TRACE NEGATIVE [facility] HospitalUrine opiates screening ipfk8327-66-58 06:00:00* Test Item Value Reference Range Interpretation Comments Urine Opiates Screen (test code = 57766-7) POSITIVE NEGATIVE This test provides only a screen. Positive results should be repeated by a confi rmatory test.[facility] HospitalBarbiturates screen, urine 2019-10-05 06:00:00* Test Item Value Reference Range Interpretation Comments Urine Barbiturates Screen (test code = 989863202) NEGATIVE NEGA TIVE [facility] HospitalUrine phencyclidine detection by screening [id number] 06:00:00* Test Item Value Reference Range Interpretation Comments Urine Phencyclidine Screen (test code = 73094-0) NEGATIVE NEGAT [place]SON [facility] HospitalUrine amphetamines detection by screen method > 1000 [id number]/[id number] 06:00:00* Test Item Value Reference Range Interpretation Comments Urine Amphetamines Screen (test code = 29378-4) NEGATIVE NEGATI VE [facility] HospitalFluoroscopic procedure less than one hour [id number] 06:00:00* Test Item Value Reference Range Interpretation Comments Urine Methamphetamines Screen (test code = Urine Metha mphetamines Screen) NEGATIVE NEGATIVE [facility] HospitalUrine benzodiazepines detection by screening [id number] 06:00:00* Test Item Value Reference Range Interpretation Comments Urine Benzodiazepines Screen (test code = 88829-3) NEGATIVE NEG ATIVE [facility] HospitalUrine cocaine measurement (mass/volume) 2019-10-05 06:00:00* Test Item Value Reference Range Interpretation Comments Urine Cocaine Screen (test code = 3398-5) NEGATIVE NEGATIVE [facility] HospitalUrine cannabinoids detection by screening [id number] 06:00:00* Test Item Value Reference Range Interpretation Comments Urine Cannabinoids Screen (test code = 67157-0) POSITIVE NEGATI VE This test provides only a screen. Positive results should be repeated by a confi rmatory test.[facility] HospitalUrine methadone screen 2019-10-05 06:00:00* Test Item Value Reference Range Interpretation Comments Urine Methadone Screen (test code = 40078-8) NEGATIVE NEGATIVE THESE RESULTS ARE FOR MEDICAL TREATMENT ONLYTHIS REPORT CONTAINS UNCONFIR MED SCREENING RESULTS*POSITIVE RESULTS WILL BE CONFIRMED BY REFERENCE LAB UPON R EQUEST CUT-OFFDRUG CLASS CONCENTRATION ng/mLAmphetamines 1000Methamphetamines 1000Cocaine Metabolite 300Opiate 300Phencyc lidine 25Cannabinoid 50Barbiturates 300Benzodiazepine 300Methadone 300[facility] HospitalUrine urobilinogen measurement by test strip (mass/volume)2019-10-05 06:00:00* Test Item Value Reference Range Interpretation Comments Urine Urobilinogen (test code = 27987-0) 0.2 0.2-1 [facility] HospitalUrine total bilirubin measurement (mass/volume)2019-10-05 06:00:00* Test Item Value Reference Range Interpretation Comments Urine Bilirubin (test code = 1978-6) NEGATIVE NEGATIVE [facility] HospitalUrine erythrocytes szsqdqauq2459-67-71 06:00:00* Test Item Value Reference Range Interpretation Comments Urine Blood (test code = 56065-6) TRACE NEGATIVE [facility] HospitalAutomated urine sediment leukocyte count by microscopy (number/high power field)2019-10-05 06:00:00* Test Item Value Reference Range Interpretation Comments Urine WBC (test code = 5821-4) 0-5 0-5 [facility] HospitalErythrocytes detection in urine sediment by light [id number] 06:00:00* Test Item Value Reference Range Interpretation Comments Urine RBC (test code = 41239-7) 0-5 0-5 [facility] HospitalBacteria detection in urine sediment by light [id number] 06:00:00* Test Item Value Reference Range Interpretation Comments Urine Bacteria (test code = 09394-3) RARE NONE [facility] HospitalEpithelial cells detection in urine sediment by light [id number] 06:00:00* Test Item Value Reference Range Interpretation Comments Urine Epithelial Cells (test code = 50788-1) RARE NONE [facility] HospitalUrine color ihvebaiywiixh9538-92-65 06:00:00* Test Item Value Reference Range Interpretation Comments Urine Color (test code = 5778-6) YELLOW YELLOW [facility] HospitalUrine [id number] 06:00:00* Test Item Value Reference Range Interpretation Comments Urine Clarity (test code = 87407-9) CLEAR CLEAR [facility] gravity of Urine by Test strip 2019-10-05 06:00:00* Test Item Value Reference Range Interpretation Comments Urine Specific [place] (test code = 5811-5) 1.020 1.010-1.02 5 [facility] HospitalUrine pH measurement by automated test [id number] 06:00:00* Test Item Value Reference Range Interpretation Comments Urine pH (test code = 07061-4) 7.5 5-7 [facility] HospitalUrine leukocyte esterase detection by ftcafydr0340-99-36 06:00:00* Test Item Value Reference Range Interpretation Comments Urine Leukocyte Esterase (test code = 5799-2) NEGATIVE NEGATIVE [facility] HospitalUrine nitrite tekulzenv3895-04-94 06:00:00* Test Item Value Reference Range Interpretation Comments Urine Nitrite (test code = 62727-4) NEGATIVE NEGATIVE [facility] HospitalUrine protein measurement by test strip (mass/volume)2019-10-05 06:00:00* Test Item Value Reference Range Interpretation Comments Urine Protein (test code = 5804-0) NEGATIVE NEGATIVE [facility] HospitalUrine glucose [id number] 06:00:00* Test Item Value Reference Range Interpretation Comments Urine Glucose (UA) (test code = 2349-9) 2+ NEGATIVE [facility] HospitalUrine ketones detection by automated test [id number] 06:00:00* Test Item Value Reference Range Interpretation Comments Urine Ketones (test code = 83858-7) TRACE NEGATIVE [facility] HospitalUrine opiates screening [id number] 06:00:00* Test Item Value Reference Range Interpretation Comments Urine Opiates Screen (test code = 95543-4) POSITIVE NEGATIVE This test provides only a screen. Positive results should be repeated by a confi rmatory test.[facility] HospitalBarbiturates screen, urine 2019-10-05 06:00:00* Test Item Value Reference Range Interpretation Comments Urine Barbiturates Screen (test code = 703603164) NEGATIVE NEGA TIVE [facility] HospitalUrine phencyclidine detection by screening [id number] 06:00:00* Test Item Value Reference Range Interpretation Comments Urine Phencyclidine Screen (test code = 47081-7) NEGATIVE NEGAT GILSON [facility] HospitalUrine amphetamines detection by screen method > 1000 ng/vM1188-69-25 06:00:00* Test Item Value Reference Range Interpretation Comments Urine Amphetamines Screen (test code = 58074-2) NEGATIVE NEGATI VE [facility] HospitalFluoroscopic procedure less than one hour rwbwaykk2914-83-74 06:00:00* Test Item Value Reference Range Interpretation Comments Urine Methamphetamines Screen (test code = Urine Metha mphetamines Screen) NEGATIVE NEGATIVE [facility] HospitalUrine benzodiazepines detection by screening iuidyw4658-49-78 06:00:00* Test Item Value Reference Range Interpretation Comments Urine Benzodiazepines Screen (test code = 32746-0) NEGATIVE NEG ATIVE [facility] HospitalUrine cocaine measurement (mass/volume) 2019-10-05 06:00:00* Test Item Value Reference Range Interpretation Comments Urine Cocaine Screen (test code = 3398-5) NEGATIVE NEGATIVE [facility] HospitalUrine cannabinoids detection by screening [id number] 06:00:00* Test Item Value Reference Range Interpretation Comments Urine Cannabinoids Screen (test code = 03921-9) POSITIVE NEGATI VE This test provides only a screen. Positive results should be repeated by a confi rmatory test.[facility] HospitalUrine methadone screen 2019-10-05 06:00:00* Test Item Value Reference Range Interpretation Comments Urine Methadone Screen (test code = 13243-3) NEGATIVE NEGATIVE THESE RESULTS ARE FOR MEDICAL TREATMENT ONLYTHIS REPORT CONTAINS UNCONFIR MED SCREENING RESULTS*POSITIVE RESULTS WILL BE CONFIRMED BY REFERENCE LAB UPON R EQUEST CUT-OFFDRUG CLASS CONCENTRATION ng/mLAmphetamines 1000Methamphetamines 1000Cocaine Metabolite 300Opiate 300Phencyc lidine 25Cannabinoid 50Barbiturates 300Benzodiazepine 300Methadone 300[facility] urobilinogen measurement by test strip (mass/volume)2019-10-05 06:00:00* Test Item Value Reference Range Interpretation Comments Urine Urobilinogen (test code = 56302-4) 0.2 0.2-1 [facility] HospitalUrine total bilirubin measurement (mass/volume)2019-10-05 06:00:00* Test Item Value Reference Range Interpretation Comments Urine Bilirubin (test code = 1978-6) NEGATIVE NEGATIVE [facility] HospitalUrine erythrocytes vszexftma6072-81-63 06:00:00* Test Item Value Reference Range Interpretation Comments Urine Blood (test code = 94573-7) TRACE NEGATIVE [facility] HospitalAutomated urine sediment leukocyte count by microscopy (number/high power field)2019-10-05 06:00:00* Test Item Value Reference Range Interpretation Comments Urine WBC (test code = 5821-4) 0-5 0-5 [facility] HospitalErythrocytes detection in urine sediment by light fpzsnccttr7785-45-25 06:00:00* Test Item Value Reference Range Interpretation Comments Urine RBC (test code = 33923-2) 0-5 0-5 [facility] HospitalBacteria detection in urine sediment by light cjqucxdxtp3493-91-79 06:00:00* Test Item Value Reference Range Interpretation Comments Urine Bacteria (test code = 22944-0) RARE NONE [facility] HospitalEpithelial cells detection in urine sediment by light bjfjzobjzy1119-62-91 06:00:00* Test Item Value Reference Range Interpretation Comments Urine Epithelial Cells (test code = 16596-4) RARE NONE [facility] HospitalProthrombin time (PT) in platelet poor plasma by coagulation zmgci6485-43-86 05:08:00* Test Item Value Reference Range Interpretation Comments Prothrombin Time (test code = 5902-2) 13.4 11.9-14.5 [facility] HospitalINR in Platelet poor plasma by Coagulation japfz8031-21-92 05:08:00* Test Item Value Reference Range Interpretation Comments Prothromb Time International Ratio (test code = 6301-6) 0.96 Oral Anticoagulant Therapy INR Values:1. Low Intensity Therapy 1.5 - 2.02 . Moderate Intensity Therapy 2.0 - 3.03. High Intensity Therapy(1) 2.5 - 3. 54. High Intensity Therapy(2) 3.0 - 4.05. Panic Value INR > 5.0 [facility] HospitalProthrombin time (PT) in platelet poor plasma by coagulation ecdcr2084-11-95 05:08:00* Test Item Value Reference Range Interpretation Comments Prothrombin Time (test code = 5902-2) 13.4 11.9-14.5 [facility] HospitalINR in Platelet poor plasma by Coagulation [id number] 05:08:00* Test Item Value Reference Range Interpretation Comments Prothromb Time International Ratio (test code = 6301-6) 0.96 Oral Anticoagulant Therapy INR Values:1. Low Intensity Therapy 1.5 - 2.02 . Moderate Intensity Therapy 2.0 - 3.03. High Intensity Therapy(1) 2.5 - 3. 54. High Intensity Therapy(2) 3.0 - 4.05. Panic Value INR > 5.0 [facility] HospitalProthrombin time (PT) in platelet poor plasma by coagulation iznny1083-95-30 05:08:00* Test Item Value Reference Range Interpretation Comments Prothrombin Time (test code = 5902-2) 13.4 11.9-14.5 [facility] HospitalINR in Platelet poor plasma by Coagulation [id number] 05:08:00* Test Item Value Reference Range Interpretation Comments Prothromb Time International Ratio (test code = 6301-6) 0.96 Oral Anticoagulant Therapy INR Values:1. Low Intensity Therapy 1.5 - 2.02 . Moderate Intensity Therapy 2.0 - 3.03. High Intensity Therapy(1) 2.5 - 3. 54. High Intensity Therapy(2) 3.0 - 4.05. Panic Value INR > 5.0 [facility] HospitalProthrombin time (PT) in platelet poor plasma by coagulation fnsec0078-18-62 05:08:00* Test Item Value Reference Range Interpretation Comments Prothrombin Time (test code = 5902-2) 13.4 11.9-14.5 [facility] HospitalINR in Platelet poor plasma by Coagulation [id number] 05:08:00* Test Item Value Reference Range Interpretation Comments Prothromb Time International Ratio (test code = 6301-6) 0.96 Oral Anticoagulant Therapy INR Values:1. Low Intensity Therapy 1.5 - 2.02 . Moderate Intensity Therapy 2.0 - 3.03. High Intensity Therapy(1) 2.5 - 3. 54. High Intensity Therapy(2) 3.0 - 4.05. Panic Value INR > 5.0 [facility] HospitalProthrombin time (PT) in platelet poor plasma by coagulation [id number] 05:08:00* Test Item Value Reference Range Interpretation Comments Prothrombin Time (test code = 5902-2) 13.4 11.9-14.5 [facility] HospitalINR in Platelet poor plasma by Coagulation quqtf2943-30-43 05:08:00* Test Item Value Reference Range Interpretation Comments Prothromb Time International Ratio (test code = 6301-6) 0.96 Oral Anticoagulant Therapy INR Values:1. Low Intensity Therapy 1.5 - 2.02 . Moderate Intensity Therapy 2.0 - 3.03. High Intensity Therapy(1) 2.5 - 3. 54. High Intensity Therapy(2) 3.0 - 4.05. Panic Value INR > 5.0 [facility] HospitalProthrombin time (PT) in platelet poor plasma by coagulation mmqxs6911-70-00 05:08:00* Test Item Value Reference Range Interpretation Comments Prothrombin Time (test code = 5902-2) 13.4 11.9-14.5 [facility] HospitalINR in Platelet poor plasma by Coagulation ofoij2583-41-60 05:08:00* Test Item Value Reference Range Interpretation Comments Prothromb Time International Ratio (test code = 6301-6) 0.96 Oral Anticoagulant Therapy INR Values:1. Low Intensity Therapy 1.5 - 2.02 . Moderate Intensity Therapy 2.0 - 3.03. High Intensity Therapy(1) 2.5 - 3. 54. High Intensity Therapy(2) 3.0 - 4.05. Panic Value INR > 5.0 [facility] HospitalProthrombin time (PT) in platelet poor plasma by coagulation [id number] 05:08:00* Test Item Value Reference Range Interpretation Comments Prothrombin Time (test code = 5902-2) 13.4 11.9-14.5 [facility] HospitalINR in Platelet poor plasma by Coagulation mptto4000-53-87 05:08:00* Test Item Value Reference Range Interpretation Comments Prothromb Time International Ratio (test code = 6301-6) 0.96 Oral Anticoagulant Therapy INR Values:1. Low Intensity Therapy 1.5 - 2.02 . Moderate Intensity Therapy 2.0 - 3.03. High Intensity Therapy(1) 2.5 - 3. 54. High Intensity Therapy(2) 3.0 - 4.05. Panic Value INR > 5.0 [facility] HospitalProthrombin time (PT) in platelet poor plasma by coagulation [id number] 05:08:00* Test Item Value Reference Range Interpretation Comments Prothrombin Time (test code = 5902-2) 13.4 11.9-14.5 [facility] HospitalINR in Platelet poor plasma by Coagulation [id number] 05:08:00* Test Item Value Reference Range Interpretation Comments Prothromb Time International Ratio (test code = 6301-6) 0.96 Oral Anticoagulant Therapy INR Values:1. Low Intensity Therapy 1.5 - 2.02 . Moderate Intensity Therapy 2.0 - 3.03. High Intensity Therapy(1) 2.5 - 3. 54. High Intensity Therapy(2) 3.0 - 4.05. Panic Value INR > 5.0 [facility] HospitalProthrombin time (PT) in platelet poor plasma by coagulation [id number] 05:08:00* Test Item Value Reference Range Interpretation Comments Prothrombin Time (test code = 5902-2) 13.4 11.9-14.5 [facility] HospitalINR in Platelet poor plasma by Coagulation czeia3878-28-98 05:08:00* Test Item Value Reference Range Interpretation Comments Prothromb Time International Ratio (test code = 6301-6) 0.96 Oral Anticoagulant Therapy INR Values:1. Low Intensity Therapy 1.5 - 2.02 . Moderate Intensity Therapy 2.0 - 3.03. High Intensity Therapy(1) 2.5 - 3. 54. High Intensity Therapy(2) 3.0 - 4.05. Panic Value INR > 5.0 [facility] HospitalCT ABDOM[facility]/PELVIS [id number] 12:03:00 [place] [address] Patient Name: BREE LINDSAY MR #: [id number] : 1975 Age/Sex: 43/M Req #: [id number] Adm Physician: ISACC JAVED MD Ordered by: LU SADLER DO Report #: [id number] Location: MED/SURG Room/Bed: [facility] Procedure: [id number] CT/CT ABDOMEN/ PELVIS W Exam Date: 10/04/19 [...] Bilirubin (test code = 1975-2) 0.4 0.2-1.2 [facility] HospitalFluoroscopic procedure less than one hour adajsfkz4158-13-38 06:25:00* Test Item Value Reference Range Interpretation Comments Aspartate Amino Transf (AST/SGOT) (test code = Aspartate Amino Transf (AST/SGOT)) 20 5-34 [facility]ne[facility] plasma alanine aminotransferase measurement (enzymatic activity/volume)2019-10-04 06:25:00* Test Item Value Reference Range Interpretation Comments Alanine Aminotransferase (ALT/SGPT) (test code = 1742-6) 15 0-55 [facility]neerum or plasma protein measurement (mass/volume)2019-10-04 06:25:00* Test Item Value Reference Range Interpretation Comments Total Protein (test code = 2885-2) 7.2 6.5-8.1 [facility]neerum or plasma albumin measurement (mass/volume)2019-10-04 06:25:00* Test Item Value Reference Range Interpretation Comments Albumin (test code = 1751-7) 3.9 3.5-5.0 [facility] HospitalPlasma globulin measurement (mass/volume) 2019-10-04 06:25:00* Test Item Value Reference Range Interpretation Comments Globulin (test code = 44191-2) 3.3 2.3-3.5 [facility]neerum or plasma albumin/globulin mass dhdno6562-00-24 06:25:00* Test Item Value Reference Range Interpretation Comments Albumin/Globulin Ratio (test code = 1759-0) 1.2 0.8-2.0 [facility]neerum or plasma alkaline phosphatase measurement (enzymatic activity/volume)2019-10-04 06:25:00* Test Item Value Reference Range Interpretation Comments Alkaline Phosphatase (test code = 6768-6) 90 40-150 [facility]neerum or plasma total bilirubin measurement (mass/volume)2019-10-04 06:25:00* Test Item Value Reference Range Interpretation Comments Total Bilirubin (test code = 1975-2) 0.4 0.2-1.2 [facility] HospitalFluoroscopic procedure less than one hour ytmlztso8983-22-29 06:25:00* Test Item Value Reference Range Interpretation Comments Aspartate Amino Transf (AST/SGOT) (test code = Aspartate Amino Transf (AST/SGOT)) 20 5-34 [facility]neerum or plasma alanine aminotransferase measurement (enzymatic activity/volume)2019-10-04 06:25:00* Test Item Value Reference Range Interpretation Comments Alanine Aminotransferase (ALT/SGPT) (test code = 1742-6) 15 0-55 [facility]neerum or plasma protein measurement (mass/volume)2019-10-04 06:25:00* Test Item Value Reference Range Interpretation Comments Total Protein (test code = 2885-2) 7.2 6.5-8.1 [facility]neerum or plasma albumin measurement (mass/volume)2019-10-04 06:25:00* Test Item Value Reference Range Interpretation Comments Albumin (test code = 1751-7) 3.9 3.5-5.0 [facility] HospitalPlasma globulin measurement (mass/volume) 2019-10-04 06:25:00* Test Item Value Reference Range Interpretation Comments Globulin (test code = 44692-8) 3.3 2.3-3.5 [facility]neerum or plasma albumin/globulin mass miwil5818-72-78 06:25:00* Test Item Value Reference Range Interpretation Comments Albumin/Globulin Ratio (test code = 1759-0) 1.2 0.8-2.0 [facility]neerum or plasma alkaline phosphatase measurement (enzymatic activity/volume)2019-10-04 06:25:00* Test Item Value Reference Range Interpretation Comments Alkaline Phosphatase (test code = 6768-6) 90 40-150 [facility]neerum or plasma total bilirubin measurement (mass/volume)2019-10-04 06:25:00* Test Item Value Reference Range Interpretation Comments Total Bilirubin (test code = 1975-2) 0.4 0.2-1.2 [facility] HospitalFluoroscopic procedure less than one hour [id number] 06:25:00* Test Item Value Reference Range Interpretation Comments Aspartate Amino Transf (AST/SGOT) (test code = Aspartate Amino Transf (AST/SGOT)) 20 5-34 [facility]neerum or plasma alanine aminotransferase measurement (enzymatic activity/volume)2019-10-04 06:25:00* Test Item Value Reference Range Interpretation Comments Alanine Aminotransferase (ALT/SGPT) (test code = 1742-6) 15 0-55 [facility]neerum or plasma protein measurement (mass/volume)2019-10-04 06:25:00* Test Item Value Reference Range Interpretation Comments Total Protein (test code = 2885-2) 7.2 6.5-8.1 [facility]neerum or plasma albumin measurement (mass/volume)2019-10-04 06:25:00* Test Item Value Reference Range Interpretation Comments Albumin (test code = 1751-7) 3.9 3.5-5.0 [facility] HospitalPlasma globulin measurement (mass/volume) 2019-10-04 06:25:00* Test Item Value Reference Range Interpretation Comments Globulin (test code = 51903-5) 3.3 2.3-3.5 [facility]ne[facility]um or plasma albumin/globulin mass [id number] 06:25:00* Test Item Value Reference Range Interpretation Comments Albumin/Globulin Ratio (test code = 1759-0) 1.2 0.8-2.0 [facility]neerum or plasma alkaline phosphatase measurement (enzymatic activity/volume)2019-10-04 06:25:00* Test Item Value Reference Range Interpretation Comments Alkaline Phosphatase (test code = 6768-6) 90 40-150 [facility]neerum or plasma total bilirubin measurement (mass/volume)2019-10-04 06:25:00* Test Item Value Reference Range Interpretation Comments Total Bilirubin (test code = 1975-2) 0.4 0.2-1.2 [facility] HospitalFluoroscopic procedure less than one hour fgecsejy7227-92-41 06:25:00* Test Item Value Reference Range Interpretation Comments Aspartate Amino Transf (AST/SGOT) (test code = Aspartate Amino Transf (AST/SGOT)) 20 5-34 [facility]neer[facility] or plasma alanine aminotransferase measurement (enzymatic activity/volume)2019-10-04 06:25:00* Test Item Value Reference Range Interpretation Comments Alanine Aminotransferase (ALT/SGPT) (test code = 1742-6) 15 0-55 [facility]neerum or plasma protein measurement (mass/volume)2019-10-04 06:25:00* Test Item Value Reference Range Interpretation Comments Total Protein (test code = 2885-2) 7.2 6.5-8.1 [facility]neerum or plasma albumin measurement (mass/volume)2019-10-04 06:25:00* Test Item Value Reference Range Interpretation Comments Albumin (test code = 1751-7) 3.9 3.5-5.0 [facility] HospitalPlasma globulin measurement (mass/volume) 2019-10-04 06:25:00* Test Item Value Reference Range Interpretation Comments Globulin (test code = 67589-2) 3.3 2.3-3.5 [facility]ne[facility]um or plasma albumin/globulin mass bzlgh8763-99-16 06:25:00* Test Item Value Reference Range Interpretation Comments Albumin/Globulin Ratio (test code = 1759-0) 1.2 0.8-2.0 [facility]erum or plasma alkaline phosphatase measurement (enzymatic activity/volume)2019-10-04 06:25:00* Test Item Value Reference Range Interpretation Comments Alkaline Phosphatase (test code = 6768-6) 90 40-150 [facility]ne[facility]um or plasma total bilirubin measurement (mass/volume)2019-10-04 06:25:00* Test Item Value Reference Range Interpretation Comments Total Bilirubin (test code = 1975-2) 0.4 0.2-1.2 [facility] HospitalFluoroscopic procedure less than one hour xzbuknjq4104-93-64 06:25:00* Test Item Value Reference Range Interpretation Comments Aspartate Amino Transf (AST/SGOT) (test code = Aspartate Amino Transf (AST/SGOT)) 20 5-34 [facility] alanine aminotransferase measurement (enzymatic activity/volume)2019-10-04 06:25:00* Test Item Value Reference Range Interpretation Comments Alanine Aminotransferase (ALT/SGPT) (test code = 1742-6) 15 0-55 [facility] protein measurement (mass/volume)2019-10-04 06:25:00* Test Item Value Reference Range Interpretation Comments Total Protein (test code = 2885-2) 7.2 6.5-8.1 [facility] albumin measurement (mass/volume)2019-10-04 06:25:00* Test Item Value Reference Range Interpretation Comments Albumin (test code = 1751-7) 3.9 3.5-5.0 [facility] HospitalPlasma globulin measurement (mass/volume) 2019-10-04 06:25:00* Test Item Value Reference Range Interpretation Comments Globulin (test code = 05945-4) 3.3 2.3-3.5 [facility] albumin/globulin mass [id number] 06:25:00* Test Item Value Reference Range Interpretation Comments Albumin/Globulin Ratio (test code = 1759-0) 1.2 0.8-2.0 [facility] alkaline phosphatase measurement (enzymatic activity/volume)2019-10-04 06:25:00* Test Item Value Reference Range Interpretation Comments Alkaline Phosphatase (test code = 6768-6) 90 40-150 [facility] total bilirubin measurement (mass/volume)2019-10-04 06:25:00* Test Item Value Reference Range Interpretation Comments Total Bilirubin (test code = 1975-2) 0.4 0.2-1.2 [facility] HospitalFluoroscopic procedure less than one hour mnrxeecq7012-28-60 06:25:00* Test Item Value Reference Range Interpretation Comments Aspartate Amino Transf (AST/SGOT) (test code = Aspartate Amino Transf (AST/SGOT)) 20 5-34 [facility] alanine aminotransferase measurement (enzymatic activity/volume)2019-10-04 06:25:00* Test Item Value Reference Range Interpretation Comments Alanine Aminotransferase (ALT/SGPT) (test code = 1742-6) 15 0-55 [facility] protein measurement (mass/volume)2019-10-04 06:25:00* Test Item Value Reference Range Interpretation Comments Total Protein (test code = 2885-2) 7.2 6.5-8.1 [facility] plasma albumin measurement (mass/volume)2019-10-04 06:25:00* Test Item Value Reference Range Interpretation Comments Albumin (test code = 1751-7) 3.9 3.5-5.0 [facility] HospitalPlasma globulin measurement (mass/volume) 2019-10-04 06:25:00* Test Item Value Reference Range Interpretation Comments Globulin (test code = 20729-5) 3.3 2.3-3.5 [facility] albumin/globulin mass [id number] 06:25:00* Test Item Value Reference Range Interpretation Comments Albumin/Globulin Ratio (test code = 1759-0) 1.2 0.8-2.0 [facility] alkaline phosphatase measurement (enzymatic activity/volume)2019-10-04 06:25:00* Test Item Value Reference Range Interpretation Comments Alkaline Phosphatase (test code = 6768-6) 90 40-150 [facility] total bilirubin measurement (mass/volume)2019-10-04 06:25:00* Test Item Value Reference Range Interpretation Comments Total Bilirubin (test code = 1975-2) 0.4 0.2-1.2 [facility] HospitalFluoroscopic procedure less than one hour [id number] 06:25:00* Test Item Value Reference Range Interpretation Comments Aspartate Amino Transf (AST/SGOT) (test code = Aspartate Amino Transf (AST/SGOT)) 20 5-34 [facility] alanine aminotransferase measurement (enzymatic activity/volume)2019-10-04 06:25:00* Test Item Value Reference Range Interpretation Comments Alanine Aminotransferase (ALT/SGPT) (test code = 1742-6) 15 0-55 [facility] protein measurement (mass/volume)2019-10-04 06:25:00* Test Item Value Reference Range Interpretation Comments Total Protein (test code = 2885-2) 7.2 6.5-8.1 [facility] albumin measurement (mass/volume)2019-10-04 06:25:00* Test Item Value Reference Range Interpretation Comments Albumin (test code = 1751-7) 3.9 3.5-5.0 [facility] HospitalPlasma globulin measurement (mass/volume) 2019-10-04 06:25:00* Test Item Value Reference Range Interpretation Comments Globulin (test code = 30942-5) 3.3 2.3-3.5 [facility] albumin/globulin mass [id number] 06:25:00* Test Item Value Reference Range Interpretation Comments Albumin/Globulin Ratio (test code = 1759-0) 1.2 0.8-2.0 [facility] alkaline phosphatase measurement (enzymatic activity/volume)2019-10-04 06:25:00* Test Item Value Reference Range Interpretation Comments Alkaline Phosphatase (test code = 6768-6) 90 40-150 [facility] total bilirubin measurement (mass/volume)2019-10-04 06:25:00* Test Item Value Reference Range Interpretation Comments Total Bilirubin (test code = 1975-2) 0.4 0.2-1.2 [facility] HospitalFluoroscopic procedure less than one hour glaqxfmq0153-25-92 06:25:00* Test Item Value Reference Range Interpretation Comments Aspartate Amino Transf (AST/SGOT) (test code = Aspartate Amino Transf (AST/SGOT)) 20 5-34 [facility] alanine aminotransferase measurement (enzymatic activity/volume)2019-10-04 06:25:00* Test Item Value Reference Range Interpretation Comments Alanine Aminotransferase (ALT/SGPT) (test code = 1742-6) 15 0-55 [facility] plasma protein measurement (mass/volume)2019-10-04 06:25:00* Test Item Value Reference Range Interpretation Comments Total Protein (test code = 2885-2) 7.2 6.5-8.1 [facility] plasma albumin measurement (mass/volume)2019-10-04 06:25:00* Test Item Value Reference Range Interpretation Comments Albumin (test code = 1751-7) 3.9 3.5-5.0 [facility] HospitalPlasma globulin measurement (mass/volume) 2019-10-04 06:25:00* Test Item Value Reference Range Interpretation Comments Globulin (test code = 22275-8) 3.3 2.3-3.5 [facility] plasma albumin/globulin mass [id number] 06:25:00* Test Item Value Reference Range Interpretation Comments Albumin/Globulin Ratio (test code = 1759-0) 1.2 0.8-2.0 [facility] plasma alkaline phosphatase measurement (enzymatic activity/volume)2019-10-04 06:25:00* Test Item Value Reference Range Interpretation Comments Alkaline Phosphatase (test code = 6768-6) 90 40-150 [facility] total bilirubin measurement (mass/volume)2019-10-04 06:25:00* Test Item Value Reference Range Interpretation Comments Total Bilirubin (test code = 1975-2) 0.4 0.2-1.2 [facility] HospitalFluoroscopic procedure less than one hour [id number] 06:25:00* Test Item Value Reference Range Interpretation Comments Aspartate Amino Transf (AST/SGOT) (test code = Aspartate Amino Transf (AST/SGOT)) 20 5-34 [facility] alanine aminotransferase measurement (enzymatic activity/volume)2019-10-04 06:25:00* Test Item Value Reference Range Interpretation Comments Alanine Aminotransferase (ALT/SGPT) (test code = 1742-6) 15 0-55 [facility] or plasma protein measurement (mass/volume)2019-10-04 06:25:00* Test Item Value Reference Range Interpretation Comments Total Protein (test code = 2885-2) 7.2 6.5-8.1 [facility] plasma albumin measurement (mass/volume)2019-10-04 06:25:00* Test Item Value Reference Range Interpretation Comments Albumin (test code = 1751-7) 3.9 3.5-5.0 [facility] HospitalPlasma globulin measurement (mass/volume) 2019-10-04 06:25:00* Test Item Value Reference Range Interpretation Comments Globulin (test code = 66064-2) 3.3 2.3-3.5 [facility] albumin/globulin mass [id number] 06:25:00* Test Item Value Reference Range Interpretation Comments Albumin/Globulin Ratio (test code = 1759-0) 1.2 0.8-2.0 [facility] plasma alkaline phosphatase measurement (enzymatic activity/volume)2019-10-04 06:25:00* Test Item Value Reference Range Interpretation Comments Alkaline Phosphatase (test code = 6768-6) 90 40-150 [facility] HospitalFluoroscopic procedure less than one hour kkrslcqv9630-09-04 01:50:00* Test Item Value Reference Range Interpretation [...] under 564(g) of the ACT.Testing performed by [facility] [place], [place] [address]HUN [facility]Fluor[facility] procedure less than one hour duration 2019-10-04 [...] under 564(g) of the ACT.Testing performed by [address] [address]GTSH[facility] HospitalCT ABDOMEN/PELVIS [id number] 12:40:00 [facility] [address] [address] Patient Name: BREE LINDSAY MR #: [id number] : 1975 Age/Sex: 43/M Req #: [id number] Adm Physician: Ordered by: STACIE FALLON, JEANNIE FALLON Report #: [id number] Location: ER Room/Bed: Procedure: [id number] CT/CT ABD OMEN/PELVIS W Exam Date: 09/30/19 [...] (PT) in platelet poor plasma by coagulation [id number] 09:55:00* Test Item Value Reference Range Interpretation Comments Prothrombin Time (test code = 5902-2) 13.3 11.9-14.5 [facility] HospitalINR in Platelet poor plasma by Coagulation [id number] 09:55:00* Test Item Value Reference Range Interpretation Comments Prothromb Time International Ratio (test code = 6301-6) 0.96 Oral Anticoagulant Therapy INR Values:1. Low Intensity Therapy 1.5 - 2.02 . Moderate Intensity Therapy 2.0 - 3.03. High Intensity Therapy(1) 2.5 - 3. 54. High Intensity Therapy(2) 3.0 - 4.05. Panic Value INR > 5.0 [facility] HospitalActivated partial thromboplastin time (aPTT) in platelet poor plasma by coagulation oxmkg9158-94-31 09:55:00* Test Item Value Reference Range Interpretation Comments Activated Partial Thromboplast Time (test code = 45778-4) 26.1 23.8-35.5 [facility] sodium measurement (moles/volume)2019-09-30 09:55:00* Test Item Value Reference Range Interpretation Comments Sodium Level (test code = 2951-2) 142 136-145 [facility] plasma potassium measurement (moles/volume)2019-09-30 09:55:00* Test Item Value Reference Range Interpretation Comments Potassium Level (test code = 2823-3) 3.9 3.5-5.1 [facility] plasma chloride measurement (moles/volume)2019-09-30 09:55:00* Test Item Value Reference Range Interpretation Comments Chloride Level (test code = 2075-0) 103 98-107 [facility] plasma carbon dioxide, total measurement (moles/volume)2019-09-30 09:55:00* Test Item Value Reference Range Interpretation Comments Carbon Dioxide Level (test code = 2028-9) 30 22-29 [facility] plasma anion izt8801-26-03 09:55:00* Test Item Value Reference Range Interpretation Comments Anion Gap (test code = 19366-7) 12.9 8-16 [facility] plasma urea nitrogen measurement (mass/volume)2019-09-30 09:55:00* Test Item Value Reference Range Interpretation Comments Blood Urea Nitrogen (test code = 3094-0) 13 10-22 [facility] or plasma creatinine measurement (mass/volume)2019-09-30 09:55:00* Test Item Value Reference Range Interpretation Comments Creatinine (test code = 2160-0) 1.18 0.72-1.25 [facility] plasma urea nitrogen/creatinine mass [id number] 09:55:00* Test Item Value Reference Range Interpretation Comments BUN/Creatinine Ratio (test code = 3097-3) 11 09-21 [facility] HospitalEstimated glomerular filtration rate (GFR) gjdhfizzoobne6729-77-75 09:55:00* Test Item Value Reference Range Interpretation Comments Estimat Glomerular Filtration Rate (test code = 764746195) > 60 >60 Ranges were taken from the National Kidney Disease Education Program and the [facility] literature.Reference ranges:60 or greater: Mvyjcn30-82 ( for 3 consecutive months): Chronic kidney disease 15 or less: Kidney failureHarris Health System Ben Taub HospitalGlucose vzdeosihznd9261-54-00 09:55:00* Test Item Value Reference Range Interpretation Comments Glucose Level (test code = WIG4699) 328 74-118 [facility]er[facility] or plasma calcium measurement (mass/volume)2019-09-30 09:55:00* Test Item Value Reference Range Interpretation Comments Calcium Level (test code = 25513-5) 8.8 8.4-10.2 [facility] HospitalFluoroscopic procedure less than one hour tabayrkg1202-05-82 09:55:00* Test Item Value Reference Range Interpretation Comments Lactic Acid Level (test code = Lactic Acid Level) 1.0 0.5- 2.0 [facility] or plasma total bilirubin measurement (mass/volume)2019-09-30 09:55:00* Test Item Value Reference Range Interpretation Comments Total Bilirubin (test code = 1975-2) 0.5 0.2-1.2 [facility] HospitalFluoroscopic procedure less than one hour iffjcvxx7422-68-15 09:55:00* Test Item Value Reference Range Interpretation Comments Aspartate Amino Transf (AST/SGOT) (test code = Aspartate Amino Transf (AST/SGOT)) 16 5-34 [facility] plasma alanine aminotransferase measurement (enzymatic activity/volume)2019-09-30 09:55:00* Test Item Value Reference Range Interpretation Comments Alanine Aminotransferase (ALT/SGPT) (test code = 1742-6) 15 0-55 [facility] or plasma protein measurement (mass/volume)2019-09-30 09:55:00* Test Item Value Reference Range Interpretation Comments Total Protein (test code = 2885-2) 6.4 6.5-8.1 [facility] or plasma albumin measurement (mass/volume)2019-09-30 09:55:00* Test Item Value Reference Range Interpretation Comments Albumin (test code = 1751-7) 3.4 3.5-5.0 [facility] HospitalPlasma globulin measurement (mass/volume) 2019-09-30 09:55:00* Test Item Value Reference Range Interpretation Comments Globulin (test code = 40302-6) 3.0 2.3-3.5 [facility]er[facility] or plasma albumin/globulin mass yawnz4690-26-13 09:55:00* Test Item Value Reference Range Interpretation Comments Albumin/Globulin Ratio (test code = 1759-0) 1.1 0.8-2.0 [facility]er[facility] or plasma alkaline phosphatase measurement (enzymatic activity/volume)2019-09-30 09:55:00* Test Item Value Reference Range Interpretation Comments Alkaline Phosphatase (test code = 6768-6) 92 40-150 [facility] or plasma creatine kinase measurement (enzymatic activity/volume)2019-09-30 09:55:00* Test Item Value Reference Range Interpretation Comments Creatine Kinase (test code = 2157-6) 365 30-200 [facility]er[facility] or plasma creatine kinase MB measurement (mass/volume)2019-09-30 09:55:00* Test Item Value Reference Range Interpretation Comments Creatine Kinase MB (test code = 04825-3) 1.50 0-5.0 [facility] HospitalTroponin I measurement by highly sensitive enzyme jrjksmznqau1224-27-76 09:55:00* Test Item Value Reference Range Interpretation Comments Troponin I (test code = 75201-2) 0.001 0-0.300 [facility]er[facility] or plasma amylase measurement (enzymatic activity/volume)2019-09-30 09:55:00* Test Item Value Reference Range Interpretation Comments Amylase Level (test code = 1798-8) 49 25-125 [facility] or plasma lipase measurement (enzymatic activity/volume)2019-09-30 09:55:00* Test Item Value Reference Range Interpretation Comments Lipase (test code = 3040-3) < 4 8-78 [facility] HospitalActivated partial thromboplastin time (aPTT) in platelet poor plasma by coagulation jptqr2447-43-28 09:55:00* Test Item Value Reference Range Interpretation Comments Activated Partial Thromboplast Time (test code = 47356-6) 26.1 23.8-35.5 [facility] HospitalFluoroscopic procedure less than one hour rcztdurx1529-79-27 09:55:00* Test Item Value Reference Range Interpretation Comments Lactic Acid Level (test code = Lactic Acid Level) 1.0 0.5- 2.0 [facility]neer[facility] or plasma creatine kinase measurement (enzymatic activity/volume)2019-09-30 09:55:00* Test Item Value Reference Range Interpretation Comments Creatine Kinase (test code = 2157-6) 365 30-200 [facility]er[facility] or plasma creatine kinase MB measurement (mass/volume)2019-09-30 09:55:00* Test Item Value Reference Range Interpretation Comments Creatine Kinase MB (test code = 17423-1) 1.50 0-5.0 [facility] HospitalTroponin I measurement by highly sensitive enzyme jamfcikmhcm7206-27-85 09:55:00* Test Item Value Reference Range Interpretation Comments Troponin I (test code = 37929-1) 0.001 0-0.300 [facility]er[facility] or plasma amylase measurement (enzymatic activity/volume)2019-09-30 09:55:00* Test Item Value Reference Range Interpretation Comments Amylase Level (test code = 1798-8) 49 25-125 [facility]er[facility] or plasma lipase measurement (enzymatic activity/volume)2019-09-30 09:55:00* Test Item Value Reference Range Interpretation Comments Lipase (test code = 3040-3) < 4 8-78 [facility] HospitalActivated partial thromboplastin time (aPTT) in platelet poor plasma by coagulation [id number] 09:55:00* Test Item Value Reference Range Interpretation Comments Activated Partial Thromboplast Time (test code = 85687-4) 26.1 23.8-35.5 [facility] HospitalFluoroscopic procedure less than one hour vvicwaei0152-33-62 09:55:00* Test Item Value Reference Range Interpretation Comments Lactic Acid Level (test code = Lactic Acid Level) 1.0 0.5- 2.0 [facility] or plasma creatine kinase measurement (enzymatic activity/volume)2019-09-30 09:55:00* Test Item Value Reference Range Interpretation Comments Creatine Kinase (test code = 2157-6) 365 30-200 [facility]er[facility] or plasma creatine kinase MB measurement (mass/volume)2019-09-30 09:55:00* Test Item Value Reference Range Interpretation Comments Creatine Kinase MB (test code = 54447-3) 1.50 0-5.0 [facility] HospitalTroponin I measurement by highly sensitive enzyme broaqcluspd8034-12-61 09:55:00* Test Item Value Reference Range Interpretation Comments Troponin I (test code = 52292-5) 0.001 0-0.300 [facility] or plasma amylase measurement (enzymatic activity/volume)2019-09-30 09:55:00* Test Item Value Reference Range Interpretation Comments Amylase Level (test code = 1798-8) 49 25-125 [facility] HospitalActivated partial thromboplastin time (aPTT) in platelet poor plasma by coagulation ogddf8523-97-92 09:55:00* Test Item Value Reference Range Interpretation Comments Activated Partial Thromboplast Time (test code = 12721-0) 26.1 23.8-35.5 [facility] HospitalFluoroscopic procedure less than one hour umgbdvsg0089-55-78 09:55:00* Test Item Value Reference Range Interpretation Comments Lactic Acid Level (test code = Lactic Acid Level) 1.0 0.5- 2.0 [facility]er[facility] or plasma creatine kinase measurement (enzymatic activity/volume)2019-09-30 09:55:00* Test Item Value Reference Range Interpretation Comments Creatine Kinase (test code = 2157-6) 365 30-200 [facility]neerum or plasma creatine kinase MB measurement (mass/volume)2019-09-30 09:55:00* Test Item Value Reference Range Interpretation Comments Creatine Kinase MB (test code = 25166-0) 1.50 0-5.0 [facility] HospitalTroponin I measurement by highly sensitive enzyme afrhuygzgtv1536-31-85 09:55:00* Test Item Value Reference Range Interpretation Comments Troponin I (test code = 93863-1) 0.001 0-0.300 [facility] or plasma amylase measurement (enzymatic activity/volume)2019-09-30 09:55:00* Test Item Value Reference Range Interpretation Comments Amylase Level (test code = 1798-8) 49 25-125 [facility] HospitalActivated partial thromboplastin time (aPTT) in platelet poor plasma by coagulation dxisv9469-05-26 09:55:00* Test Item Value Reference Range Interpretation Comments Activated Partial Thromboplast Time (test code = 88838-3) 26.1 23.8-35.5 [facility] HospitalFluoroscopic procedure less than one hour qdvyqfiu2835-17-61 09:55:00* Test Item Value Reference Range Interpretation Comments Lactic Acid Level (test code = Lactic Acid Level) 1.0 0.5- 2.0 [facility]er[facility] or plasma creatine kinase measurement (enzymatic activity/volume)2019-09-30 09:55:00* Test Item Value Reference Range Interpretation Comments Creatine Kinase (test code = 2157-6) 365 30-200 [facility]neerum or plasma creatine kinase MB measurement (mass/volume)2019-09-30 09:55:00* Test Item Value Reference Range Interpretation Comments Creatine Kinase MB (test code = 88998-7) 1.50 0-5.0 [facility] HospitalTroponin I measurement by highly sensitive enzyme utgrkdeudrc7374-97-35 09:55:00* Test Item Value Reference Range Interpretation Comments Troponin I (test code = 47040-0) 0.001 0-0.300 [facility] or plasma amylase measurement (enzymatic activity/volume)2019-09-30 09:55:00* Test Item Value Reference Range Interpretation Comments Amylase Level (test code = 1798-8) 49 25-125 [facility] HospitalActivated partial thromboplastin time (aPTT) in platelet poor plasma by coagulation oyfcz7660-49-89 09:55:00* Test Item Value Reference Range Interpretation Comments Activated Partial Thromboplast Time (test code = 57534-6) 26.1 23.8-35.5 [facility] HospitalFluoroscopic procedure less than one hour kjnuvtkq8695-54-50 09:55:00* Test Item Value Reference Range Interpretation Comments Lactic Acid Level (test code = Lactic Acid Level) 1.0 0.5- 2.0 [facility]er[facility] or plasma creatine kinase measurement (enzymatic activity/volume)2019-09-30 09:55:00* Test Item Value Reference Range Interpretation Comments Creatine Kinase (test code = 2157-6) 365 30-200 [facility]neerum or plasma creatine kinase MB measurement (mass/volume)2019-09-30 09:55:00* Test Item Value Reference Range Interpretation Comments Creatine Kinase MB (test code = 78480-3) 1.50 0-5.0 [facility] HospitalTroponin I measurement by highly sensitive enzyme pddpwcgrald5036-47-42 09:55:00* Test Item Value Reference Range Interpretation Comments Troponin I (test code = 62548-5) 0.001 0-0.300 [facility]neer[facility] or plasma amylase measurement (enzymatic activity/volume)2019-09-30 09:55:00* Test Item Value Reference Range Interpretation Comments Amylase Level (test code = 1798-8) 49 25-125 [facility] HospitalActivated partial thromboplastin time (aPTT) in platelet poor plasma by coagulation isgrk4397-54-05 09:55:00* Test Item Value Reference Range Interpretation Comments Activated Partial Thromboplast Time (test code = 49485-1) 26.1 23.8-35.5 [facility] HospitalFluoroscopic procedure less than one hour dcyhpolw5251-73-62 09:55:00* Test Item Value Reference Range Interpretation Comments Lactic Acid Level (test code = Lactic Acid Level) 1.0 0.5- 2.0 [facility] creatine kinase measurement (enzymatic activity/volume)2019-09-30 09:55:00* Test Item Value Reference Range Interpretation Comments Creatine Kinase (test code = 2157-6) 365 30-200 [facility]ne[facility] plasma creatine kinase MB measurement (mass/volume)2019-09-30 09:55:00* Test Item Value Reference Range Interpretation Comments Creatine Kinase MB (test code = 34485-3) 1.50 0-5.0 [facility] HospitalTroponin I measurement by highly sensitive enzyme mndnzksogvm0159-58-90 09:55:00* Test Item Value Reference Range Interpretation Comments Troponin I (test code = 74021-5) 0.001 0-0.300 [facility] plasma amylase measurement (enzymatic activity/volume)2019-09-30 09:55:00* Test Item Value Reference Range Interpretation Comments Amylase Level (test code = 1798-8) 49 25-125 [facility] HospitalActivated partial thromboplastin time (aPTT) in platelet poor plasma by coagulation rldqr8843-95-86 09:55:00* Test Item Value Reference Range Interpretation Comments Activated Partial Thromboplast Time (test code = 31373-1) 26.1 23.8-35.5 [facility] HospitalFluoroscopic procedure less than one hour nhgtdhbb2725-26-20 09:55:00* Test Item Value Reference Range Interpretation Comments Lactic Acid Level (test code = Lactic Acid Level) 1.0 0.5- 2.0 [facility] plasma creatine kinase measurement (enzymatic activity/volume)2019-09-30 09:55:00* Test Item Value Reference Range Interpretation Comments Creatine Kinase (test code = 2157-6) 365 30-200 [facility] plasma creatine kinase MB measurement (mass/volume)2019-09-30 09:55:00* Test Item Value Reference Range Interpretation Comments Creatine Kinase MB (test code = 36538-3) 1.50 0-5.0 [facility] HospitalTroponin I measurement by highly sensitive enzyme pqbqldrrjuo4575-70-65 09:55:00* Test Item Value Reference Range Interpretation Comments Troponin I (test code = 62050-6) 0.001 0-0.300 [facility] plasma amylase measurement (enzymatic activity/volume)2019-09-30 09:55:00* Test Item Value Reference Range Interpretation Comments Amylase Level (test code = 1798-8) 49 25-125 [facility] HospitalActivated partial thromboplastin time (aPTT) in platelet poor plasma by coagulation yoxzc3097-43-81 09:55:00* Test Item Value Reference Range Interpretation Comments Activated Partial Thromboplast Time (test code = 87009-0) 26.1 23.8-35.5 [facility] HospitalFluoroscopic procedure less than one hour dkyfnjrl3038-15-01 09:55:00* Test Item Value Reference Range Interpretation Comments Lactic Acid Level (test code = Lactic Acid Level) 1.0 0.5- 2.0 [facility] plasma creatine kinase measurement (enzymatic activity/volume)2019-09-30 09:55:00* Test Item Value Reference Range Interpretation Comments Creatine Kinase (test code = 2157-6) 365 30-200 [facility]neer[facility] or plasma creatine kinase MB measurement (mass/volume)2019-09-30 09:55:00* Test Item Value Reference Range Interpretation Comments Creatine Kinase MB (test code = 64935-0) 1.50 0-5.0 [facility] HospitalTroponin I measurement by highly sensitive enzyme reksaxnqudm2756-08-97 09:55:00* Test Item Value Reference Range Interpretation Comments Troponin I (test code = 96732-2) 0.001 0-0.300 [facility] plasma amylase measurement (enzymatic activity/volume)2019-09-30 09:55:00* Test Item Value Reference Range Interpretation Comments Amylase Level (test code = 1798-8) 49 25-125 [facility] HospitalActivated partial thromboplastin time (aPTT) in platelet poor plasma by coagulation znhyd3741-57-98 09:55:00* Test Item Value Reference Range Interpretation Comments Activated Partial Thromboplast Time (test code = 36994-2) 26.1 23.8-35.5 [facility] HospitalFluoroscopic procedure less than one hour goudbkih5060-72-35 09:55:00* Test Item Value Reference Range Interpretation Comments Lactic Acid Level (test code = Lactic Acid Level) 1.0 0.5- 2.0 [facility] or plasma creatine kinase measurement (enzymatic activity/volume)2019-09-30 09:55:00* Test Item Value Reference Range Interpretation Comments Creatine Kinase (test code = 2157-6) 365 30-200 [facility]neer[facility] or plasma creatine kinase MB measurement (mass/volume)2019-09-30 09:55:00* Test Item Value Reference Range Interpretation Comments Creatine Kinase MB (test code = 07058-3) 1.50 0-5.0 [facility] HospitalTroponin I measurement by highly sensitive enzyme guqwowvttur9928-70-77 09:55:00* Test Item Value Reference Range Interpretation Comments Troponin I (test code = 05990-3) 0.001 0-0.300 [facility] or plasma amylase measurement (enzymatic activity/volume)2019-09-30 09:55:00* Test Item Value Reference Range Interpretation Comments Amylase Level (test code = 1798-8) 49 25-125 [facility] HospitalCHEST SINGLE (PORTABLE)2019-09-30 09:23:00 [facility] [address] [place] [address] Patient Name: BREE LINDSAY MR #: [id number] : 1975 Age/Sex: 43/M Req #: [id number] Adm Physician: Ordered by: STACIE FALLON, JEANNIE FALLON Report #: [id number] Location: ER Room/Bed: Procedure: [id number] DX/CHEST SINGLE (PORTABLE) Exam Date: 09/30/19 Exam Time: 083 5 REPORT STATUS: Signed EXAMINAT ION: CHEST SINGLE (PORTABLE) INDICATION: ERMD ORDER [id number] Y COMPARISON: Chest radiograph 07/23/2019, [...] Count (test code = 6690-2) 9.64 4.8-10.8 [facility] HospitalBlood erythrocytes automated count (number/volume)2019-09-30 09:10:00* Test Item Value Reference Range Interpretation Comments Red Blood Count (test code = 789-8) 3.70 4.3-5.7 [facility] HospitalBlood hemoglobin measurement (moles/volume)2019-09-30 09:10:00* Test Item Value Reference Range Interpretation Comments Hemoglobin (test code = 97580-2) 10.4 14.0-18.0 [facility] HospitalAutomated blood hematocrit (volume fraction)2019-09-30 09:10:00* Test Item Value Reference Range Interpretation Comments Hematocrit (test code = 4544-3) 32.9 38.2-49.6 [facility] HospitalAutomated erythrocyte mean corpuscular yvkjvh4239-65-10 09:10:00* Test Item Value Reference Range Interpretation Comments Mean Corpuscular Volume (test code = 787-2) 88.9 81-99 [facility] HospitalAutomated erythrocyte mean corpuscular hemoglobin (mass per erythrocyte)2019-09-30 09:10:00* Test Item Value Reference Range Interpretation Comments Mean Corpuscular Hemoglobin (test code = 785-6) 28.1 28-32 [facility] HospitalAutat[facility] health kannapolised erythrocyte mean corpuscular hemoglobin concentration measurement (mass/volume)2019-09-30 09:10:00* Test Item Value Reference Range Interpretation Comments Mean Corpuscular Hemoglobin Concent (test code = 786-4) 31.6 31-35 [facility] HospitalRDW TguYl-Oyy4433-19-03 09:10:00* Test Item Value Reference Range Interpretation Comments Red Cell Distribution Width (test code = 38822-5) 14.0 11.7 -14.4 [facility] HospitalAutat[facility] health kannapolised blood platelet count (count/volume)2019-09-30 09:10:00* Test Item Value Reference Range Interpretation Comments Platelet Count (test code = 777-3) 263 140-360 [facility] HospitalAutat[facility] health kannapol[facility] blood segmented neutrophil count as percentage of total prcxmuerqi2697-71-80 09:10:00* Test Item Value Reference Range Interpretation Comments Neutrophils (%) (Auto) (test code = 54978-3) 80.4 38.7-80.0 [facility] HospitalAutat[facility] health kannapolised blood lymphocyte count as percentage ot total dvklkzockm7995-44-76 09:10:00* Test Item Value Reference Range Interpretation Comments Lymphocytes (%) (Auto) (test code = 736-9) 11.5 18.0-39.1 [facility] HospitalAutomated blood monocyte count as percentage of total tyqbgextrc0649-84-73 09:10:00* Test Item Value Reference Range Interpretation Comments Monocytes (%) (Auto) (test code = 5905-5) 6.3 4.4-11.3 [facility] HospitalAutomated blood eosinophil count as percentage of total loreascrld6418-32-71 09:10:00* Test Item Value Reference Range Interpretation Comments Eosinophils (%) (Auto) (test code = 713-8) 0.7 0.0-6.0 [facility] HospitalAutomated blood basophil count as percentage of total tjywesjjhl3446-81-98 09:10:00* Test Item Value Reference Range Interpretation Comments Basophils (%) (Auto) (test code = 706-2) 0.8 0.0-1.0 [facility] HospitalFluoroscopic procedure less than one hour kcqqmixi2641-15-97 09:10:00* Test Item Value Reference Range Interpretation Comments IM GRANULOCYTES % (test code = IM GRANULOCYTES %) 0.3 0.0- 1.0 [facility] HospitalAutomated blood neutrophil count 2019-09-30 09:10:00* Test Item Value Reference Range Interpretation Comments Neutrophils # (Auto) (test code = 751-8) 7.7 2.1-6.9 [facility] HospitalBlood lymphocytes count (number/volume) 2019-09-30 09:10:00* Test Item Value Reference Range Interpretation Comments Lymphocytes # (Auto) (test code = 14610-5) 1.1 1.0-3.2 [facility] HospitalBlood monocytes automated count (number/volume)2019-09-30 09:10:00* Test Item Value Reference Range Interpretation Comments Monocytes # (Auto) (test code = 742-7) 0.6 0.2-0.8 [facility] HospitalAutomated blood eosinophil count 2019-09-30 09:10:00* Test Item Value Reference Range Interpretation Comments Eosinophils # (Auto) (test code = 711-2) 0.1 0.0-0.4 [facility] HospitalAutomated blood basophil count (count/volume)2019-09-30 09:10:00* Test Item Value Reference Range Interpretation Comments Basophils # (Auto) (test code = 704-7) 0.1 0.0-0.1 [facility] HospitalFluoroscopic procedure less than one hour qcfziyvl5069-28-88 09:10:00* Test Item Value Reference Range Interpretation Comments Absolute Immature Granulocyte (auto (zeenat t code = Absolute Immature Granulocyte (auto) 0.03 0-0.1 [facility] aowbwjx9945-16-96 09:10:00* Test Item Value Reference Range Interpretation Comments Blood Culture (test code = 31130338) NO GROWTH AFTER 5 DAYS, FINAL REPORT [facility]2020-07-03 09:10:00* Test Item Value Reference Range Interpretation Comments Blood Culture (test code = 51359240) NO GROWTH AFTER 5 DAYS, FINAL REPORT [facility]2020-07-03 09:10:00* Test Item Value Reference Range Interpretation Comments Blood Culture (test code = 91140887) NO GROWTH AFTER 5 DAYS, FINAL REPORT [facility]2020-07-03 09:10:00* Test Item Value Reference Range Interpretation Comments Blood Culture (test code = 68669023) NO GROWTH AFTER 5 DAYS, FINAL REPORT [facility]2020-07-03 09:10:00* Test Item Value Reference Range Interpretation Comments Blood Culture (test code = 48562069) NO GROWTH AFTER 5 DAYS, FINAL REPORT [facility]2020-07-03 09:10:00* Test Item Value Reference Range Interpretation Comments Blood Culture (test code = 24357522) NO GROWTH AFTER 5 DAYS, FINAL REPORT [facility]2020-07-03 09:10:00* Test Item Value Reference Range Interpretation Comments Blood Culture (test code = 34771648) NO GROWTH AFTER 5 DAYS, FINAL REPORT [facility]2020-07-03 09:10:00* Test Item Value Reference Range Interpretation Comments Blood Culture (test code = 59268234) NO GROWTH AFTER 5 DAYS, FINAL REPORT [facility] HospitalBlood ybaezpj8397-68-62 09:10:00* Test Item Value Reference Range Interpretation Comments Blood Culture (test code = 67770399) NO GROWTH AFTER 5 DAYS, FINAL REPORT [facility] HospitalUrine color mwwsiigkylofe3334-96-11 08:44:00* Test Item Value Reference Range Interpretation Comments Urine Color (test code = 5778-6) YELLOW YELLOW [facility] HospitalUrine qococap0766-79-53 08:44:00* Test Item Value Reference Range Interpretation Comments Urine Clarity (test code = 48183-0) CLEAR CLEAR [facility]nepecific gravity of Urine by Test strip 2019-09-30 08:44:00* Test Item Value Reference Range Interpretation Comments Urine Specific [place] (test code = 5811-5) 1.025 1.010-1.02 5 [facility] HospitalUrine pH measurement by automated test zktmz3302-64-29 08:44:00* Test Item Value Reference Range Interpretation Comments Urine pH (test code = 30818-5) 7 5-7 [facility] HospitalUrine leukocyte esterase detection by gkyuoxke7684-33-06 08:44:00* Test Item Value Reference Range Interpretation Comments Urine Leukocyte Esterase (test code = 5799-2) NEGATIVE NEGATIVE [facility] HospitalUrine nitrite kwraxwrip5857-42-42 08:44:00* Test Item Value Reference Range Interpretation Comments Urine Nitrite (test code = 98477-7) NEGATIVE NEGATIVE [facility] HospitalUrine protein measurement by test strip (mass/volume)2019-09-30 08:44:00* Test Item Value Reference Range Interpretation Comments Urine Protein (test code = 5804-0) 1+ NEGATIVE [facility] HospitalUrine glucose bpzcbmzxo1469-56-68 08:44:00* Test Item Value Reference Range Interpretation Comments Urine Glucose (UA) (test code = 2349-9) 2+ NEGATIVE [facility] HospitalUrine ketones detection by automated test djfut1865-44-87 08:44:00* Test Item Value Reference Range Interpretation Comments Urine Ketones (test code = 37472-7) 2+ NEGATIVE [facility] HospitalUrine opiates screening qfbx0893-03-40 08:44:00* Test Item Value Reference Range Interpretation Comments Urine Opiates Screen (test code = 38270-2) POSITIVE NEGATIVE This test provides only a screen. Positive results should be repeated by a confi rmatory test.[facility] HospitalBarbiturates screen, urine 2019-09-30 08:44:00* Test Item Value Reference Range Interpretation Comments Urine Barbiturates Screen (test code = 912493306) NEGATIVE NEGA TIVE [facility] HospitalUrine phencyclidine detection by screening npfgbh4716-27-32 08:44:00* Test Item Value Reference Range Interpretation Comments Urine Phencyclidine Screen (test code = 78875-6) NEGATIVE NEGAT [place] [facility] HospitalUrine amphetamines detection by screen method > 1000 ng/rW6561-52-79 08:44:00* Test Item Value Reference Range Interpretation Comments Urine Amphetamines Screen (test code = 13993-7) NEGATIVE NEGATI VE [facility] HospitalFluoroscopic procedure less than one hour qytgcekl0378-79-62 08:44:00* Test Item Value Reference Range Interpretation Comments Urine Methamphetamines Screen (test code = Urine Metha mphetamines Screen) NEGATIVE NEGATIVE [facility] HospitalUrine benzodiazepines detection by screening dmxmrk0391-15-39 08:44:00* Test Item Value Reference Range Interpretation Comments Urine Benzodiazepines Screen (test code = 91273-8) POSITIVE NEG ATIVE This test provides only a screen. Positive results should be repeated by a confi rmatory test.[facility] HospitalUrine cocaine measurement (mass/volume)2019-09-30 08:44:00* Test Item Value Reference Range Interpretation Comments Urine Cocaine Screen (test code = 3398-5) NEGATIVE NEGATIVE [facility] HospitalUrine cannabinoids detection by screening majifw5611-77-54 08:44:00* Test Item Value Reference Range Interpretation Comments Urine Cannabinoids Screen (test code = 48129-9) POSITIVE NEGATI VE This test provides only a screen. Positive results should be repeated by a confi rmatory test.[facility] HospitalUrine methadone screen 2019-09-30 08:44:00* Test Item Value Reference Range Interpretation Comments Urine Methadone Screen (test code = 80906-2) NEGATIVE NEGATIVE THESE RESULTS ARE FOR MEDICAL TREATMENT ONLYTHIS REPORT CONTAINS UNCONFIR MED SCREENING RESULTS*POSITIVE RESULTS WILL BE CONFIRMED BY REFERENCE LAB UPON R EQUEST CUT-OFFDRUG CLASS CONCENTRATION ng/mLAmphetamines 1000Methamphetamines 1000Cocaine Metabolite 300Opiate 300Phencyc lidine 25Cannabinoid 50Barbiturates 300Benzodiazepine 300Methadone 300[facility] urobilinogen measurement by test strip (mass/volume)2019-09-30 08:44:00* Test Item Value Reference Range Interpretation Comments Urine Urobilinogen (test code = 15172-9) 0.2 0.2-1 [facility] HospitalUrine total bilirubin measurement (mass/volume)2019-09-30 08:44:00* Test Item Value Reference Range Interpretation Comments Urine Bilirubin (test code = 1978-6) NEGATIVE NEGATIVE [facility] HospitalUrine erythrocytes njepnjbkb2205-15-66 08:44:00* Test Item Value Reference Range Interpretation Comments Urine Blood (test code = 08935-4) TRACE NEGATIVE [facility] HospitalAutomated urine sediment leukocyte count by microscopy (number/high power field)2019-09-30 08:44:00* Test Item Value Reference Range Interpretation Comments Urine WBC (test code = 5821-4) 21-50 0-5 [facility] HospitalErythrocytes detection in urine sediment by light vymdkuporh4285-86-14 08:44:00* Test Item Value Reference Range Interpretation Comments Urine RBC (test code = 96178-6) 6-10 0-5 [facility] HospitalBacteria detection in urine sediment by light rhexskaqwo2544-62-47 08:44:00* Test Item Value Reference Range Interpretation Comments Urine Bacteria (test code = 11822-9) FEW NONE [facility] HospitalEpithelial cells detection in urine sediment by light wldgimhefp0269-95-56 08:44:00* Test Item Value Reference Range Interpretation Comments Urine Epithelial Cells (test code = 10246-0) RARE NONE [facility] HospitalCapillary blood glucose measurement by glucometer (mass/volume)2019-09-24 07:23:00* Test Item Value Reference Range Interpretation Comments Bedside Glucose (test code = 46959-8) 83 70-120 Meter ID: [id number] [facility] Center blood glucose measurement by glucometer (mass/volume)2019-09-24 07:23:00* Test Item Value Reference Range Interpretation Comments Bedside Glucose (test code = 88922-4) 83 70-120 Meter ID: [id number] Medical Center blood glucose measurement by glucometer (mass/volume)2019-09-24 07:23:00* Test Item Value Reference Range Interpretation Comments Bedside Glucose (test code = 13935-5) 83 70-120 Meter ID: [id number] Health System [facility] HospitalTroponin I measurement by highly sensitive enzyme zwtmlmgwgvd3863-86-55 09:58:00* Test Item Value Reference Range Interpretation Comments Troponin I (test code = 97673-6) 0.016 0-0.300 [facility] HospitalTroponin I measurement by highly sensitive enzyme husqmsqtprd0372-90-06 09:58:00* Test Item Value Reference Range Interpretation Comments Troponin I (test code = 46066-9) 0.016 0-0.300 [facility]Blfederal [facility] leukocytes automated count (number/volume)2019-09-23 05:42:00* Test Item Value Reference Range Interpretation Comments White Blood Count (test code = 6690-2) 8.62 4.8-10.8 [facility] HospitalBlfederal [facility] hospital erythrocytes automated count (number/volume)2019-09-23 05:42:00* Test Item Value Reference Range Interpretation Comments Red Blood Count (test code = 789-8) 3.57 4.3-5.7 [facility] hemoglobin measurement (moles/volume)2019-09-23 05:42:00* Test Item Value Reference Range Interpretation Comments Hemoglobin (test code = 97311-7) 10.3 14.0-18.0 [facility] HospitalAutomated blood hematocrit (volume fraction)2019-09-23 05:42:00* Test Item Value Reference Range Interpretation Comments Hematocrit (test code = 4544-3) 32.2 38.2-49.6 [facility] HospitalAutomated erythrocyte mean corpuscular yqpmce7052-78-45 05:42:00* Test Item Value Reference Range Interpretation Comments Mean Corpuscular Volume (test code = 787-2) 90.2 81-99 [facility] HospitalAutomated erythrocyte mean corpuscular hemoglobin (mass per erythrocyte)2019-09-23 05:42:00* Test Item Value Reference Range Interpretation Comments Mean Corpuscular Hemoglobin (test code = 785-6) 28.9 28-32 [facility] HospitalAutomated erythrocyte mean corpuscular hemoglobin concentration measurement (mass/volume)2019-09-23 05:42:00* Test Item Value Reference Range Interpretation Comments Mean Corpuscular Hemoglobin Concent (test code = 786-4) 32.0 31-35 [facility] HospitalRDW OpxLw-Aqc8336-45-26 05:42:00* Test Item Value Reference Range Interpretation Comments Red Cell Distribution Width (test code = 36484-3) 13.7 11.7 -14.4 [facility] HospitalAutomated blood platelet count (count/volume)2019-09-23 05:42:00* Test Item Value Reference Range Interpretation Comments Platelet Count (test code = 777-3) 183 140-360 [facility] HospitalAutatrium health kannapolised blood segmented neutrophil count as percentage of total scxywlhftv2738-94-52 05:42:00* Test Item Value Reference Range Interpretation Comments Neutrophils (%) (Auto) (test code = 74044-9) 78.4 38.7-80.0 [facility] HospitalAutomated blood lymphocyte count as percentage ot total bblftvgdhn1460-15-68 05:42:00* Test Item Value Reference Range Interpretation Comments Lymphocytes (%) (Auto) (test code = 736-9) 13.1 18.0-39.1 [facility] HospitalAutomated blood monocyte count as percentage of total dakejevtnj6933-82-77 05:42:00* Test Item Value Reference Range Interpretation Comments Monocytes (%) (Auto) (test code = 5905-5) 7.7 4.4-11.3 [facility] HospitalAutomated blood eosinophil count as percentage of total jdzwmidbyh9457-76-61 05:42:00* Test Item Value Reference Range Interpretation Comments Eosinophils (%) (Auto) (test code = 713-8) 0.1 0.0-6.0 [facility] HospitalAutomated blood basophil count as percentage of total guobrpwmoo9425-84-69 05:42:00* Test Item Value Reference Range Interpretation Comments Basophils (%) (Auto) (test code = 706-2) 0.5 0.0-1.0 [facility] HospitalFluoroscopic procedure less than one hour rzvljjag1685-29-46 05:42:00* Test Item Value Reference Range Interpretation Comments IM GRANULOCYTES % (test code = IM GRANULOCYTES %) 0.2 0.0- 1.0 [facility] HospitalAutomated blood neutrophil count 2019-09-23 05:42:00* Test Item Value Reference Range Interpretation Comments Neutrophils # (Auto) (test code = 751-8) 6.8 2.1-6.9 [facility] HospitalBlood lymphocytes count (number/volume) 2019-09-23 05:42:00* Test Item Value Reference Range Interpretation Comments Lymphocytes # (Auto) (test code = 21086-0) 1.1 1.0-3.2 [facility] HospitalBlood monocytes automated count (number/volume)2019-09-23 05:42:00* Test Item Value Reference Range Interpretation Comments Monocytes # (Auto) (test code = 742-7) 0.7 0.2-0.8 [facility] HospitalAutomated blood eosinophil count 2019-09-23 05:42:00* Test Item Value Reference Range Interpretation Comments Eosinophils # (Auto) (test code = 711-2) 0.0 0.0-0.4 [facility] HospitalAutomated blood basophil count (count/volume)2019-09-23 05:42:00* Test Item Value Reference Range Interpretation Comments Basophils # (Auto) (test code = 704-7) 0.0 0.0-0.1 [facility] HospitalFluoroscopic procedure less than one hour emsxjdcl2204-08-89 05:42:00* Test Item Value Reference Range Interpretation Comments Absolute Immature Granulocyte (auto (zeenat t code = Absolute Immature Granulocyte (auto) 0.02 0-0.1 [facility] sodium [facility] (moles/volume)2019-09-23 05:42:00* Test Item Value Reference Range Interpretation Comments Sodium Level (test code = 2951-2) 138 136-145 [facility] potassium measurement (moles/volume)2019-09-23 05:42:00* Test Item Value Reference Range Interpretation Comments Potassium Level (test code = 2823-3) 3.6 3.5-5.1 [facility] chloride measurement (moles/volume)2019-09-23 05:42:00* Test Item Value Reference Range Interpretation Comments Chloride Level (test code = 2075-0) 101 98-107 [facility] carbon dioxide, total measurement (moles/volume)2019-09-23 05:42:00* Test Item Value Reference Range Interpretation Comments Carbon Dioxide Level (test code = 2028-9) 28 22-29 [facility] plasma anion era3949-18-14 05:42:00* Test Item Value Reference Range Interpretation Comments Anion Gap (test code = 46488-8) 12.6 8-16 [facility] urea nitrogen measurement (mass/volume)2019-09-23 05:42:00* Test Item Value Reference Range Interpretation Comments Blood Urea Nitrogen (test code = 3094-0) 22 7-26 [facility] creatinine measurement (mass/volume)2019-09-23 05:42:00* Test Item Value Reference Range Interpretation Comments Creatinine (test code = 2160-0) 1.16 0.72-1.25 [facility] urea nitrogen/creatinine mass baskx1235-83-77 05:42:00* Test Item Value Reference Range Interpretation Comments BUN/Creatinine Ratio (test code = 3097-3) 19 6-25 [facility] HospitalEstimated glomerular filtration rate (GFR) pugdpnvzekogq2416-45-70 05:42:00* Test Item Value Reference Range Interpretation Comments Estimat Glomerular Filtration Rate (test code = 566542589) > 60 >60 Ranges were taken from the National Kidney Disease Education Program and the [facility] Kidney Foundation literature.Reference ranges:60 or greater: Xawhhr91-09 ( for 3 consecutive months): Chronic kidney disease 15 or less: Kidney failureHarris [facility] System [facility] HospitalGlucose rbimdarimab9958-21-10 05:42:00* Test Item Value Reference Range Interpretation Comments Glucose Level (test code = YQI8624) 266 74-118 [facility] calcium measurement (mass/volume)2019-09-23 05:42:00* Test Item Value Reference Range Interpretation Comments Calcium Level (test code = 51585-1) 8.3 8.4-10.2 [facility] plasma total bilirubin measurement (mass/volume)2019-09-23 05:42:00* Test Item Value Reference Range Interpretation Comments Total Bilirubin (test code = 1975-2) 0.4 0.2-1.2 [facility] HospitalFluoroscopic procedure less than one hour nhzrqsfw8656-91-10 05:42:00* Test Item Value Reference Range Interpretation Comments Aspartate Amino Transf (AST/SGOT) (test code = Aspartate Amino Transf (AST/SGOT)) 14 5-34 [facility] plasma alanine aminotransferase measurement (enzymatic activity/volume)2019-09-23 05:42:00* Test Item Value Reference Range Interpretation Comments Alanine Aminotransferase (ALT/SGPT) (test code = 1742-6) 14 0-55 [facility] protein measurement (mass/volume)2019-09-23 05:42:00* Test Item Value Reference Range Interpretation Comments Total Protein (test code = 2885-2) 6.2 6.5-8.1 [facility] plasma albumin measurement (mass/volume)2019-09-23 05:42:00* Test Item Value Reference Range Interpretation Comments Albumin (test code = 1751-7) 3.4 3.5-5.0 [facility] HospitalPlasma globulin measurement (mass/volume) 2019-09-23 05:42:00* Test Item Value Reference Range Interpretation Comments Globulin (test code = 29064-3) 2.8 2.3-3.5 [facility] plasma albumin/globulin mass felbg7719-09-04 05:42:00* Test Item Value Reference Range Interpretation Comments Albumin/Globulin Ratio (test code = 1759-0) 1.2 0.8-2.0 [facility] plasma alkaline phosphatase measurement (enzymatic activity/volume)2019-09-23 05:42:00* Test Item Value Reference Range Interpretation Comments Alkaline Phosphatase (test code = 6768-6) 108 40-150 [facility] HospitalBlood leukocytes automated count (number/volume)2019-09-23 05:42:00* Test Item Value Reference Range Interpretation Comments White Blood Count (test code = 6690-2) 8.62 4.8-10.8 [facility] HospitalBlood erythrocytes automated count (number/volume)2019-09-23 05:42:00* Test Item Value Reference Range Interpretation Comments Red Blood Count (test code = 789-8) 3.57 4.3-5.7 [facility] HospitalBlood hemoglobin measurement (moles/volume)2019-09-23 05:42:00* Test Item Value Reference Range Interpretation Comments Hemoglobin (test code = 07826-4) 10.3 14.0-18.0 [facility] HospitalAutomated blood hematocrit (volume fraction)2019-09-23 05:42:00* Test Item Value Reference Range Interpretation Comments Hematocrit (test code = 4544-3) 32.2 38.2-49.6 [facility] HospitalAutomated erythrocyte mean corpuscular zpjjct1467-00-90 05:42:00* Test Item Value Reference Range Interpretation Comments Mean Corpuscular Volume (test code = 787-2) 90.2 81-99 [facility] HospitalAutomated erythrocyte mean corpuscular hemoglobin (mass per erythrocyte)2019-09-23 05:42:00* Test Item Value Reference Range Interpretation Comments Mean Corpuscular Hemoglobin (test code = 785-6) 28.9 28-32 [facility] HospitalAutomated erythrocyte mean corpuscular hemoglobin concentration measurement (mass/volume)2019-09-23 05:42:00* Test Item Value Reference Range Interpretation Comments Mean Corpuscular Hemoglobin Concent (test code = 786-4) 32.0 31-35 [facility] HospitalRDW WctTk-Mum3982-03-26 05:42:00* Test Item Value Reference Range Interpretation Comments Red Cell Distribution Width (test code = 12678-4) 13.7 11.7 -14.4 [facility] HospitalAutomated blood platelet count (count/volume)2019-09-23 05:42:00* Test Item Value Reference Range Interpretation Comments Platelet Count (test code = 777-3) 183 140-360 [facility] HospitalAutomated blood segmented neutrophil count as percentage of total djyrqqnzvq2481-83-50 05:42:00* Test Item Value Reference Range Interpretation Comments Neutrophils (%) (Auto) (test code = 77841-2) 78.4 38.7-80.0 [facility] HospitalAutomated blood lymphocyte count as percentage ot total zjrzxufowj6881-13-20 05:42:00* Test Item Value Reference Range Interpretation Comments Lymphocytes (%) (Auto) (test code = 736-9) 13.1 18.0-39.1 [facility] HospitalAutomated blood monocyte count as percentage of total hqewupshmv6484-22-29 05:42:00* Test Item Value Reference Range Interpretation Comments Monocytes (%) (Auto) (test code = 5905-5) 7.7 4.4-11.3 [facility] HospitalAutomated blood eosinophil count as percentage of total hmbxdzgced9292-42-71 05:42:00* Test Item Value Reference Range Interpretation Comments Eosinophils (%) (Auto) (test code = 713-8) 0.1 0.0-6.0 [facility] HospitalAutomated blood basophil count as percentage of total iahufqpssf3828-42-60 05:42:00* Test Item Value Reference Range Interpretation Comments Basophils (%) (Auto) (test code = 706-2) 0.5 0.0-1.0 [facility] HospitalFluoroscopic procedure less than one hour vplflchm3247-99-63 05:42:00* Test Item Value Reference Range Interpretation Comments IM GRANULOCYTES % (test code = IM GRANULOCYTES %) 0.2 0.0- 1.0 [facility] HospitalAutomated blood neutrophil count 2019-09-23 05:42:00* Test Item Value Reference Range Interpretation Comments Neutrophils # (Auto) (test code = 751-8) 6.8 2.1-6.9 [facility] HospitalBlood lymphocytes count (number/volume) 2019-09-23 05:42:00* Test Item Value Reference Range Interpretation Comments Lymphocytes # (Auto) (test code = 16211-2) 1.1 1.0-3.2 [facility] HospitalBlood monocytes automated count (number/volume)2019-09-23 05:42:00* Test Item Value Reference Range Interpretation Comments Monocytes # (Auto) (test code = 742-7) 0.7 0.2-0.8 [facility] HospitalAutomated blood eosinophil count 2019-09-23 05:42:00* Test Item Value Reference Range Interpretation Comments Eosinophils # (Auto) (test code = 711-2) 0.0 0.0-0.4 [facility] HospitalAutomated blood basophil count (count/volume)2019-09-23 05:42:00* Test Item Value Reference Range Interpretation Comments Basophils # (Auto) (test code = 704-7) 0.0 0.0-0.1 [facility] HospitalFluoroscopic procedure less than one hour scyafrio2403-49-49 05:42:00* Test Item Value Reference Range Interpretation Comments Absolute Immature Granulocyte (auto (zeenat t code = Absolute Immature Granulocyte (auto) 0.02 0-0.1 [facility] plasma sodium measurement (moles/volume)2019-09-23 05:42:00* Test Item Value Reference Range Interpretation Comments Sodium Level (test code = 2951-2) 138 136-145 [facility]neerum or plasma potassium measurement (moles/volume)2019-09-23 05:42:00* Test Item Value Reference Range Interpretation Comments Potassium Level (test code = 2823-3) 3.6 3.5-5.1 [facility] or plasma chloride measurement (moles/volume)2019-09-23 05:42:00* Test Item Value Reference Range Interpretation Comments Chloride Level (test code = 2075-0) 101 98-107 [facility]er[facility] or plasma carbon dioxide, total measurement (moles/volume)2019-09-23 05:42:00* Test Item Value Reference Range Interpretation Comments Carbon Dioxide Level (test code = 2028-9) 28 22-29 [facility] or plasma anion hzk6553-64-84 05:42:00* Test Item Value Reference Range Interpretation Comments Anion Gap (test code = 00188-5) 12.6 8-16 [facility] plasma urea nitrogen measurement (mass/volume)2019-09-23 05:42:00* Test Item Value Reference Range Interpretation Comments Blood Urea Nitrogen (test code = 3094-0) 22 7-26 [facility] or plasma creatinine measurement (mass/volume)2019-09-23 05:42:00* Test Item Value Reference Range Interpretation Comments Creatinine (test code = 2160-0) 1.16 0.72-1.25 [facility] plasma urea nitrogen/creatinine mass msspm3891-02-62 05:42:00* Test Item Value Reference Range Interpretation Comments BUN/Creatinine Ratio (test code = 3097-3) 19 6-25 [facility] HospitalEstimated glomerular filtration rate (GFR) efrdpofgxjtqn3946-35-45 05:42:00* Test Item Value Reference Range Interpretation Comments Estimat Glomerular Filtration Rate (test code = 189979091) > 60 >60 Ranges were taken from the National Kidney Disease Education Program and the [facility] literature.Reference ranges:60 or greater: Ufdrfz66-96 ( for 3 consecutive months): Chronic kidney disease 15 or less: Kidney failureHarris Health System Ben [facility] HospitalGlucose zvmskywlktc5880-00-02 05:42:00* Test Item Value Reference Range Interpretation Comments Glucose Level (test code = UXS7143) 266 74-118 [facility] plasma calcium measurement (mass/volume)2019-09-23 05:42:00* Test Item Value Reference Range Interpretation Comments Calcium Level (test code = 46333-5) 8.3 8.4-10.2 [facility] or plasma total bilirubin measurement (mass/volume)2019-09-23 05:42:00* Test Item Value Reference Range Interpretation Comments Total Bilirubin (test code = 1975-2) 0.4 0.2-1.2 [facility] HospitalFluoroscopic procedure less than one hour tozezilz6929-95-88 05:42:00* Test Item Value Reference Range Interpretation Comments Aspartate Amino Transf (AST/SGOT) (test code = Aspartate Amino Transf (AST/SGOT)) 14 5-34 [facility]ne[facility] or plasma alanine aminotransferase measurement (enzymatic activity/volume)2019-09-23 05:42:00* Test Item Value Reference Range Interpretation Comments Alanine Aminotransferase (ALT/SGPT) (test code = 1742-6) 14 0-55 [facility] or plasma protein measurement (mass/volume)2019-09-23 05:42:00* Test Item Value Reference Range Interpretation Comments Total Protein (test code = 2885-2) 6.2 6.5-8.1 [facility] or plasma albumin measurement (mass/volume)2019-09-23 05:42:00* Test Item Value Reference Range Interpretation Comments Albumin (test code = 1751-7) 3.4 3.5-5.0 [facility] HospitalPlasma globulin measurement (mass/volume) 2019-09-23 05:42:00* Test Item Value Reference Range Interpretation Comments Globulin (test code = 51590-7) 2.8 2.3-3.5 [facility] plasma albumin/globulin mass ravfa8301-74-83 05:42:00* Test Item Value Reference Range Interpretation Comments Albumin/Globulin Ratio (test code = 1759-0) 1.2 0.8-2.0 [facility] or plasma alkaline phosphatase measurement (enzymatic activity/volume)2019-09-23 05:42:00* Test Item Value Reference Range Interpretation Comments Alkaline Phosphatase (test code = 6768-6) 108 40-150 [facility] HospitalABDOMEN-1VIEW (KUB)2019-09-22 13:59:00 [place] [address] Patient Name: BREE LINDSAY MR #: [id number] : 1975 Age/Sex: 43/M Req #: [id number] Adm Physician: RUSLAN CARTER MD Ordered by: RUSLAN CARTER MD Report #: [id number] Location: MED/SURG3 Room/Bed: [facility] Procedure: [id number] DX/ABDOMEN-1V IEW (KUB) Exam Date: 09/22/19 Exam [...] Interpretation Comments Bedside Glucose (test code = 69402-5) 179 70-120 Meter ID: [id number] [facility] measurement by glucometer (mass/volume)2019-08-25 11:40:00* Test Item Value Reference Range Interpretation Comments Bedside Glucose (test code = 31717-4) 179 70-120 Meter ID: [id number] [facility]Flu[facility] procedure less than one hour upapuemi0035-01-10 13:20:00* Test Item Value Reference Range Interpretation [...] complexity tests.Testing performed by [facility] [id number] [place] [address] [phone] Director: Yuri Perry M.D.CLIA # [id number] [facility] Fluoroscopic procedure less than one hour otwpqdxs2741-12-32 13:20:00* Test Item Value Reference Range Interpretation [...] complexity tests.Testing performed by [facility] [id number] [phone] Director: Yuri Perry M.D.CLTIFFANY # [id number] [facility] Fluoroscopic procedure less than one hour wcbooblu7807-92-30 13:20:00* Test Item Value Reference Range Interpretation [...] complexity tests.Testing performed by [facility] [id number] [place], [place] [phone] Director: Yuri Perry M.D.CLIA # [id number] [facility] Fluoroscopic procedure less than one hour bylikuln8143-77-31 13:20:00* Test Item Value Reference Range Interpretation [...] complexity tests.Testing performed by [facility] [address] [place] [address] [phone] Director: Yuri Perry M.D.CLIA # [id number] [facility] Fluoroscopic procedure less than one hour wzczqwxw6765-55-07 13:20:00* Test Item Value Reference Range Interpretation [...] complexity tests.Testing performed by [facility] [id number] [place], [place] [phone] Director: Yuri Perry M.D.CLIA # [id number] [facility] Capillary blood glucose measurement by glucometer (mass/volume)2019-07-24 11:15:00* Test Item Value Reference Range Interpretation Comments Bedside Glucose (test code = 75679-6) 145 70-120 Meter ID: [id number] Health System [facility] HospitalBlood leukocytes automated count (number/volume)2019-07-24 06:10:00* Test Item Value Reference Range Interpretation Comments White Blood Count (test code = 6690-2) 6.43 4.8-10.8 [facility] HospitalBlood erythrocytes automated count (number/volume)2019-07-24 06:10:00* Test Item Value Reference Range Interpretation Comments Red Blood Count (test code = 789-8) 3.29 4.3-5.7 [facility] HospitalBlood hemoglobin measurement (moles/volume)2019-07-24 06:10:00* Test Item Value Reference Range Interpretation Comments Hemoglobin (test code = 85428-3) 9.4 14.0-18.0 [facility] HospitalAutomated blood hematocrit (volume fraction)2019-07-24 06:10:00* Test Item Value Reference Range Interpretation Comments Hematocrit (test code = 4544-3) 29.7 38.2-49.6 [facility] HospitalAutomated erythrocyte mean corpuscular osqqvo7701-55-36 06:10:00* Test Item Value Reference Range Interpretation Comments Mean Corpuscular Volume (test code = 787-2) 90.3 81-99 [facility] HospitalAutomated erythrocyte mean corpuscular hemoglobin (mass per erythrocyte)2019-07-24 06:10:00* Test Item Value Reference Range Interpretation Comments Mean Corpuscular Hemoglobin (test code = 785-6) 28.6 28-32 [facility] HospitalAutomated erythrocyte mean corpuscular hemoglobin concentration measurement (mass/volume)2019-07-24 06:10:00* Test Item Value Reference Range Interpretation Comments Mean Corpuscular Hemoglobin Concent (test code = 786-4) 31.6 31-35 [facility] HospitalRDW RroFz-Oua1422-33-26 06:10:00* Test Item Value Reference Range Interpretation Comments Red Cell Distribution Width (test code = 31201-5) 14.5 11.7 -14.4 [facility] HospitalAutomated blood platelet count (count/volume)2019-07-24 06:10:00* Test Item Value Reference Range Interpretation Comments Platelet Count (test code = 777-3) 132 140-360 [facility] HospitalAutomated blood segmented neutrophil count as percentage of total pxzrgevgsz4205-43-13 06:10:00* Test Item Value Reference Range Interpretation Comments Neutrophils (%) (Auto) (test code = 56963-4) 61.3 38.7-80.0 [facility] HospitalAutomated blood lymphocyte count as percentage ot total mebogruklu2900-76-87 06:10:00* Test Item Value Reference Range Interpretation Comments Lymphocytes (%) (Auto) (test code = 736-9) 24.9 18.0-39.1 [facility] HospitalAutomated blood monocyte count as percentage of total ymoojwaxdv3541-37-08 06:10:00* Test Item Value Reference Range Interpretation Comments Monocytes (%) (Auto) (test code = 5905-5) 10.0 4.4-11.3 [facility] HospitalAutomated blood eosinophil count as percentage of total iuiknfeifq8925-00-34 06:10:00* Test Item Value Reference Range Interpretation Comments Eosinophils (%) (Auto) (test code = 713-8) 2.6 0.0-6.0 [facility] HospitalAutomated blood basophil count as percentage of total sohgfnrqop0261-34-50 06:10:00* Test Item Value Reference Range Interpretation Comments Basophils (%) (Auto) (test code = 706-2) 0.9 0.0-1.0 [facility] HospitalFluoroscopic procedure less than one hour gowpmvnu0315-61-86 06:10:00* Test Item Value Reference Range Interpretation Comments IM GRANULOCYTES % (test code = IM GRANULOCYTES %) 0.3 0.0- 1.0 [facility] HospitalAutomated blood neutrophil count 2019-07-24 06:10:00* Test Item Value Reference Range Interpretation Comments Neutrophils # (Auto) (test code = 751-8) 3.9 2.1-6.9 [facility] HospitalBlood lymphocytes count (number/volume) 2019-07-24 06:10:00* Test Item Value Reference Range Interpretation Comments Lymphocytes # (Auto) (test code = 63406-3) 1.6 1.0-3.2 [facility] HospitalBlood monocytes automated count (number/volume)2019-07-24 06:10:00* Test Item Value Reference Range Interpretation Comments Monocytes # (Auto) (test code = 742-7) 0.6 0.2-0.8 [facility] HospitalAutomated blood eosinophil count 2019-07-24 06:10:00* Test Item Value Reference Range Interpretation Comments Eosinophils # (Auto) (test code = 711-2) 0.2 0.0-0.4 [facility] HospitalAutomated blood basophil count (count/volume)2019-07-24 06:10:00* Test Item Value Reference Range Interpretation Comments Basophils # (Auto) (test code = 704-7) 0.1 0.0-0.1 [facility] HospitalFluoroscopic procedure less than one hour ocrdcyog0103-10-51 06:10:00* Test Item Value Reference Range Interpretation Comments Absolute Immature Granulocyte (auto (zeenat t code = Absolute Immature Granulocyte (auto) 0.02 0-0.1 [facility] plasma sodium measurement (moles/volume)2019-07-24 06:10:00* Test Item Value Reference Range Interpretation Comments Sodium Level (test code = 2951-2) 136 136-145 [facility]neerum or plasma potassium measurement (moles/volume)2019-07-24 06:10:00* Test Item Value Reference Range Interpretation Comments Potassium Level (test code = 2823-3) 3.7 3.5-5.1 [facility] or plasma chloride measurement (moles/volume)2019-07-24 06:10:00* Test Item Value Reference Range Interpretation Comments Chloride Level (test code = 2075-0) 106 98-107 [facility]ne[facility] or plasma carbon dioxide, total measurement (moles/volume)2019-07-24 06:10:00* Test Item Value Reference Range Interpretation Comments Carbon Dioxide Level (test code = 2028-9) 23 22-29 [facility]neerum or plasma anion jty2350-67-90 06:10:00* Test Item Value Reference Range Interpretation Comments Anion Gap (test code = 13781-1) 10.7 8-16 [facility] or plasma urea nitrogen measurement (mass/volume)2019-07-24 06:10:00* Test Item Value Reference Range Interpretation Comments Blood Urea Nitrogen (test code = 3094-0) 13 7-26 [facility] or plasma creatinine measurement (mass/volume)2019-07-24 06:10:00* Test Item Value Reference Range Interpretation Comments Creatinine (test code = 2160-0) 1.24 0.72-1.25 [facility]ne[facility]um or plasma urea nitrogen/creatinine mass wjdwo7648-08-04 06:10:00* Test Item Value Reference Range Interpretation Comments BUN/Creatinine Ratio (test code = 3097-3) 10 6-25 [facility] HospitalEstimated glomerular filtration rate (GFR) nzthfmxkdgesz0872-82-90 06:10:00* Test Item Value Reference Range Interpretation Comments Estimat Glomerular Filtration Rate (test code = 776314520) > 60 >60 Ranges were taken from the National Kidney Disease Education Program and the [facility] literature.Reference ranges:60 or greater: Swexxr75-19 ( for 3 consecutive months): Chronic kidney disease 15 or less: Kidney failureHarris Health System Ben Taub HospitalGlucose lckxhjsighf1662-47-52 06:10:00* Test Item Value Reference Range Interpretation Comments Glucose Level (test code = [id number]) 148 74-118 [facility] calcium [facility] (mass/volume)2019-07-24 06:10:00* Test Item Value Reference Range Interpretation Comments Calcium Level (test code = 77091-5) 8.6 8.4-10.2 [facility] total bilirubin measurement (mass/volume)2019-07-24 06:10:00* Test Item Value Reference Range Interpretation Comments Total Bilirubin (test code = 1975-2) 0.5 0.2-1.2 [facility] HospitalFluoroscopic procedure less than one hour xfgpxmil1291-26-05 06:10:00* Test Item Value Reference Range Interpretation Comments Aspartate Amino Transf (AST/SGOT) (test code = Aspartate Amino Transf (AST/SGOT)) 14 5-34 [facility] alanine aminotransferase measurement (enzymatic activity/volume)2019-07-24 06:10:00* Test Item Value Reference Range Interpretation Comments Alanine Aminotransferase (ALT/SGPT) (test code = 1742-6) 15 0-55 [facility] protein measurement (mass/volume)2019-07-24 06:10:00* Test Item Value Reference Range Interpretation Comments Total Protein (test code = 2885-2) 6.2 6.5-8.1 [facility] albumin measurement (mass/volume)2019-07-24 06:10:00* Test Item Value Reference Range Interpretation Comments Albumin (test code = 1751-7) 3.1 3.5-5.0 [facility] HospitalPlasma globulin measurement (mass/volume) 2019-07-24 06:10:00* Test Item Value Reference Range Interpretation Comments Globulin (test code = 16269-5) 3.1 2.3-3.5 [facility] albumin/globulin mass gzrsf6601-06-26 06:10:00* Test Item Value Reference Range Interpretation Comments Albumin/Globulin Ratio (test code = 1759-0) 1.0 0.8-2.0 [facility] alkaline phosphatase measurement (enzymatic activity/volume)2019-07-24 06:10:00* Test Item Value Reference Range Interpretation Comments Alkaline Phosphatase (test code = 6768-6) 106 40-150 [facility] amylase measurement (enzymatic activity/volume)2019-07-24 06:10:00* Test Item Value Reference Range Interpretation Comments Amylase Level (test code = 1798-8) 36 25-125 [facility] lipase measurement (enzymatic activity/volume)2019-07-24 06:10:00* Test Item Value Reference Range Interpretation Comments Lipase (test code = 3040-3) < 4 8-78 [facility] leukocytes automated count (number/volume)2019-07-24 06:10:00* Test Item Value Reference Range Interpretation Comments White Blood Count (test code = 6690-2) 6.43 4.8-10.8 [facility]Bl[facility] erythrocytes automated count (number/volume)2019-07-24 06:10:00* Test Item Value Reference Range Interpretation Comments Red Blood Count (test code = 789-8) 3.29 4.3-5.7 [facility] HospitalBlood hemoglobin measurement (moles/volume)2019-07-24 06:10:00* Test Item Value Reference Range Interpretation Comments Hemoglobin (test code = 56459-6) 9.4 14.0-18.0 [facility] HospitalAutomated blood hematocrit (volume fraction)2019-07-24 06:10:00* Test Item Value Reference Range Interpretation Comments Hematocrit (test code = 4544-3) 29.7 38.2-49.6 [facility] HospitalAutomated erythrocyte mean corpuscular naxjgm3280-85-00 06:10:00* Test Item Value Reference Range Interpretation Comments Mean Corpuscular Volume (test code = 787-2) 90.3 81-99 [facility] HospitalAutomated erythrocyte mean corpuscular hemoglobin (mass per erythrocyte)2019-07-24 06:10:00* Test Item Value Reference Range Interpretation Comments Mean Corpuscular Hemoglobin (test code = 785-6) 28.6 28-32 [facility] HospitalAutomated erythrocyte mean corpuscular hemoglobin concentration measurement (mass/volume)2019-07-24 06:10:00* Test Item Value Reference Range Interpretation Comments Mean Corpuscular Hemoglobin Concent (test code = 786-4) 31.6 31-35 [facility] HospitalRDW NljGq-Riz9138-90-26 06:10:00* Test Item Value Reference Range Interpretation Comments Red Cell Distribution Width (test code = 01817-5) 14.5 11.7 -14.4 [facility] HospitalAutomated blood platelet count (count/volume)2019-07-24 06:10:00* Test Item Value Reference Range Interpretation Comments Platelet Count (test code = 777-3) 132 140-360 [facility] HospitalAutomated blood segmented neutrophil count as percentage of total tebyojuldv3744-90-82 06:10:00* Test Item Value Reference Range Interpretation Comments Neutrophils (%) (Auto) (test code = 94352-7) 61.3 38.7-80.0 [facility] HospitalAutomated blood lymphocyte count as percentage ot total pgxwsxkhgy1553-54-72 06:10:00* Test Item Value Reference Range Interpretation Comments Lymphocytes (%) (Auto) (test code = 736-9) 24.9 18.0-39.1 [facility] HospitalAutomated blood monocyte count as percentage of total luxnxyrfna0657-34-37 06:10:00* Test Item Value Reference Range Interpretation Comments Monocytes (%) (Auto) (test code = 5905-5) 10.0 4.4-11.3 [facility] HospitalAutomated blood eosinophil count as percentage of total bqaswlfdku7909-83-47 06:10:00* Test Item Value Reference Range Interpretation Comments Eosinophils (%) (Auto) (test code = 713-8) 2.6 0.0-6.0 [facility] HospitalAutomated blood basophil count as percentage of total dfhuvwlrhn2555-86-83 06:10:00* Test Item Value Reference Range Interpretation Comments Basophils (%) (Auto) (test code = 706-2) 0.9 0.0-1.0 [facility] HospitalFluoroscopic procedure less than one hour eyidgmvk6745-43-49 06:10:00* Test Item Value Reference Range Interpretation Comments IM GRANULOCYTES % (test code = IM GRANULOCYTES %) 0.3 0.0- 1.0 [facility] HospitalAutomated blood neutrophil count 2019-07-24 06:10:00* Test Item Value Reference Range Interpretation Comments Neutrophils # (Auto) (test code = 751-8) 3.9 2.1-6.9 [facility] HospitalBlood lymphocytes count (number/volume) 2019-07-24 06:10:00* Test Item Value Reference Range Interpretation Comments Lymphocytes # (Auto) (test code = 34069-0) 1.6 1.0-3.2 [facility] HospitalBlood monocytes automated count (number/volume)2019-07-24 06:10:00* Test Item Value Reference Range Interpretation Comments Monocytes # (Auto) (test code = 742-7) 0.6 0.2-0.8 [facility] HospitalAutomated blood eosinophil count 2019-07-24 06:10:00* Test Item Value Reference Range Interpretation Comments Eosinophils # (Auto) (test code = 711-2) 0.2 0.0-0.4 [facility] HospitalAutomated blood basophil count (count/volume)2019-07-24 06:10:00* Test Item Value Reference Range Interpretation Comments Basophils # (Auto) (test code = 704-7) 0.1 0.0-0.1 [facility] HospitalFluoroscopic procedure less than one hour qitpxdig6733-72-36 06:10:00* Test Item Value Reference Range Interpretation Comments Absolute Immature Granulocyte (auto (zeenat t code = Absolute Immature Granulocyte (auto) 0.02 0-0.1 [facility] sodium measurement (moles/volume)2019-07-24 06:10:00* Test Item Value Reference Range Interpretation Comments Sodium Level (test code = 2951-2) 136 136-145 [facility]er[facility] plasma potassium measurement (moles/volume)2019-07-24 06:10:00* Test Item Value Reference Range Interpretation Comments Potassium Level (test code = 2823-3) 3.7 3.5-5.1 [facility] plasma chloride measurement (moles/volume)2019-07-24 06:10:00* Test Item Value Reference Range Interpretation Comments Chloride Level (test code = 2075-0) 106 98-107 [facility]er[facility] plasma carbon dioxide, total measurement (moles/volume)2019-07-24 06:10:00* Test Item Value Reference Range Interpretation Comments Carbon Dioxide Level (test code = 2028-9) 23 22-29 [facility]er[facility] or plasma anion dva9302-68-91 06:10:00* Test Item Value Reference Range Interpretation Comments Anion Gap (test code = 23296-7) 10.7 8-16 [facility] plasma urea nitrogen measurement (mass/volume)2019-07-24 06:10:00* Test Item Value Reference Range Interpretation Comments Blood Urea Nitrogen (test code = 3094-0) 13 7-26 [facility] creatinine measurement (mass/volume)2019-07-24 06:10:00* Test Item Value Reference Range Interpretation Comments Creatinine (test code = 2160-0) 1.24 0.72-1.25 [facility] urea nitrogen/creatinine mass yvuyg7347-99-16 06:10:00* Test Item Value Reference Range Interpretation Comments BUN/Creatinine Ratio (test code = 3097-3) 10 6-25 [facility] HospitalEstimated glomerular filtration rate (GFR) rekfpleygabiu4046-09-96 06:10:00* Test Item Value Reference Range Interpretation Comments Estimat Glomerular Filtration Rate (test code = 467202605) > 60 >60 Ranges were taken from the National Kidney Disease Education Program and the [facility] Kidney Foundation literature.Reference ranges:60 or greater: Pommtv55-01 ( for 3 consecutive months): Chronic kidney disease 15 or less: Kidney failureHarris Health System Ben [facility]ub HospitalGlucose sqkgauvrmfc5488-05-88 06:10:00* Test Item Value Reference Range Interpretation Comments Glucose Level (test code = ENC8760) 148 74-118 [facility] calcium measurement (mass/volume)2019-07-24 06:10:00* Test Item Value Reference Range Interpretation Comments Calcium Level (test code = 79412-4) 8.6 8.4-10.2 [facility] plasma total bilirubin measurement (mass/volume)2019-07-24 06:10:00* Test Item Value Reference Range Interpretation Comments Total Bilirubin (test code = 1975-2) 0.5 0.2-1.2 [facility] HospitalFluoroscopic procedure less than one hour hwlmuztp1281-04-87 06:10:00* Test Item Value Reference Range Interpretation Comments Aspartate Amino Transf (AST/SGOT) (test code = Aspartate Amino Transf (AST/SGOT)) 14 5-34 [facility] plasma alanine aminotransferase measurement (enzymatic activity/volume)2019-07-24 06:10:00* Test Item Value Reference Range Interpretation Comments Alanine Aminotransferase (ALT/SGPT) (test code = 1742-6) 15 0-55 [facility] protein measurement (mass/volume)2019-07-24 06:10:00* Test Item Value Reference Range Interpretation Comments Total Protein (test code = 2885-2) 6.2 6.5-8.1 [facility] plasma albumin measurement (mass/volume)2019-07-24 06:10:00* Test Item Value Reference Range Interpretation Comments Albumin (test code = 1751-7) 3.1 3.5-5.0 [facility] HospitalPlasma globulin measurement (mass/volume) 2019-07-24 06:10:00* Test Item Value Reference Range Interpretation Comments Globulin (test code = 14804-0) 3.1 2.3-3.5 [facility] plasma albumin/globulin mass tfzcl0550-94-91 06:10:00* Test Item Value Reference Range Interpretation Comments Albumin/Globulin Ratio (test code = 1759-0) 1.0 0.8-2.0 [facility] plasma alkaline phosphatase measurement (enzymatic activity/volume)2019-07-24 06:10:00* Test Item Value Reference Range Interpretation Comments Alkaline Phosphatase (test code = 6768-6) 106 40-150 [facility] plasma amylase measurement (enzymatic activity/volume)2019-07-24 06:10:00* Test Item Value Reference Range Interpretation Comments Amylase Level (test code = 1798-8) 36 25-125 [facility] plasma lipase measurement (enzymatic activity/volume)2019-07-24 06:10:00* Test Item Value Reference Range Interpretation Comments Lipase (test code = 3040-3) < 4 8-78 [facility] HospitalBlood leukocytes automated count (number/volume)2019-07-24 06:10:00* Test Item Value Reference Range Interpretation Comments White Blood Count (test code = 6690-2) 6.43 4.8-10.8 [facility] HospitalBlfederal [facility] institution hospital erythrocytes automated count (number/volume)2019-07-24 06:10:00* Test Item Value Reference Range Interpretation Comments Red Blood Count (test code = 789-8) 3.29 4.3-5.7 [facility] HospitalBlood hemoglobin measurement (moles/volume)2019-07-24 06:10:00* Test Item Value Reference Range Interpretation Comments Hemoglobin (test code = 39539-3) 9.4 14.0-18.0 [facility] HospitalAutomated blood hematocrit (volume fraction)2019-07-24 06:10:00* Test Item Value Reference Range Interpretation Comments Hematocrit (test code = 4544-3) 29.7 38.2-49.6 [facility] HospitalAutomated erythrocyte mean corpuscular tnljmi4325-68-66 06:10:00* Test Item Value Reference Range Interpretation Comments Mean Corpuscular Volume (test code = 787-2) 90.3 81-99 [facility] HospitalAutomated erythrocyte mean corpuscular hemoglobin (mass per erythrocyte)2019-07-24 06:10:00* Test Item Value Reference Range Interpretation Comments Mean Corpuscular Hemoglobin (test code = 785-6) 28.6 28-32 [facility] HospitalAutomated erythrocyte mean corpuscular hemoglobin concentration measurement (mass/volume)2019-07-24 06:10:00* Test Item Value Reference Range Interpretation Comments Mean Corpuscular Hemoglobin Concent (test code = 786-4) 31.6 31-35 [facility] HospitalRDW PalMj-Gsa1193-49-26 06:10:00* Test Item Value Reference Range Interpretation Comments Red Cell Distribution Width (test code = 39226-6) 14.5 11.7 -14.4 [facility] HospitalAutomated blood platelet count (count/volume)2019-07-24 06:10:00* Test Item Value Reference Range Interpretation Comments Platelet Count (test code = 777-3) 132 140-360 [facility] HospitalAutomated blood segmented neutrophil count as percentage of total pbgrsuphsg8063-62-45 06:10:00* Test Item Value Reference Range Interpretation Comments Neutrophils (%) (Auto) (test code = 19476-0) 61.3 38.7-80.0 [facility] HospitalAutomated blood lymphocyte count as percentage ot total zynicingco8297-52-08 06:10:00* Test Item Value Reference Range Interpretation Comments Lymphocytes (%) (Auto) (test code = 736-9) 24.9 18.0-39.1 [facility] HospitalAutomated blood monocyte count as percentage of total easkunzqab2000-69-54 06:10:00* Test Item Value Reference Range Interpretation Comments Monocytes (%) (Auto) (test code = 5905-5) 10.0 4.4-11.3 [facility] HospitalAutomated blood eosinophil count as percentage of total pltlkwizxy4896-54-40 06:10:00* Test Item Value Reference Range Interpretation Comments Eosinophils (%) (Auto) (test code = 713-8) 2.6 0.0-6.0 [facility] HospitalAutomated blood basophil count as percentage of total pptrnlsrah4532-53-88 06:10:00* Test Item Value Reference Range Interpretation Comments Basophils (%) (Auto) (test code = 706-2) 0.9 0.0-1.0 [facility] HospitalFluoroscopic procedure less than one hour zyjwwlnq5100-43-19 06:10:00* Test Item Value Reference Range Interpretation Comments IM GRANULOCYTES % (test code = IM GRANULOCYTES %) 0.3 0.0- 1.0 [facility] HospitalAutomated blood neutrophil count 2019-07-24 06:10:00* Test Item Value Reference Range Interpretation Comments Neutrophils # (Auto) (test code = 751-8) 3.9 2.1-6.9 [facility] HospitalBlood lymphocytes count (number/volume) 2019-07-24 06:10:00* Test Item Value Reference Range Interpretation Comments Lymphocytes # (Auto) (test code = 90689-6) 1.6 1.0-3.2 [facility] HospitalBlood monocytes automated count (number/volume)2019-07-24 06:10:00* Test Item Value Reference Range Interpretation Comments Monocytes # (Auto) (test code = 742-7) 0.6 0.2-0.8 [facility] HospitalAutomated blood eosinophil count 2019-07-24 06:10:00* Test Item Value Reference Range Interpretation Comments Eosinophils # (Auto) (test code = 711-2) 0.2 0.0-0.4 [facility] HospitalAutomated blood basophil count (count/volume)2019-07-24 06:10:00* Test Item Value Reference Range Interpretation Comments Basophils # (Auto) (test code = 704-7) 0.1 0.0-0.1 [facility] HospitalFluoroscopic procedure less than one hour zicizobk8607-45-52 06:10:00* Test Item Value Reference Range Interpretation Comments Absolute Immature Granulocyte (auto (zeenat t code = Absolute Immature Granulocyte (auto) 0.02 0-0.1 [facility] plasma sodium measurement (moles/volume)2019-07-24 06:10:00* Test Item Value Reference Range Interpretation Comments Sodium Level (test code = 2951-2) 136 136-145 [facility]er[facility] plasma potassium measurement (moles/volume)2019-07-24 06:10:00* Test Item Value Reference Range Interpretation Comments Potassium Level (test code = 2823-3) 3.7 3.5-5.1 [facility] plasma chloride measurement (moles/volume)2019-07-24 06:10:00* Test Item Value Reference Range Interpretation Comments Chloride Level (test code = 2075-0) 106 98-107 [facility]er[facility] or plasma carbon dioxide, total measurement (moles/volume)2019-07-24 06:10:00* Test Item Value Reference Range Interpretation Comments Carbon Dioxide Level (test code = 2028-9) 23 22-29 [facility] or plasma anion yeq1879-60-23 06:10:00* Test Item Value Reference Range Interpretation Comments Anion Gap (test code = 47751-1) 10.7 8-16 [facility] plasma urea nitrogen measurement (mass/volume)2019-07-24 06:10:00* Test Item Value Reference Range Interpretation Comments Blood Urea Nitrogen (test code = 3094-0) 13 7-26 [facility] plasma creatinine measurement (mass/volume)2019-07-24 06:10:00* Test Item Value Reference Range Interpretation Comments Creatinine (test code = 2160-0) 1.24 0.72-1.25 [facility] plasma urea nitrogen/creatinine mass qfhgy4457-94-14 06:10:00* Test Item Value Reference Range Interpretation Comments BUN/Creatinine Ratio (test code = 3097-3) 10 6-25 [facility] HospitalEstimated glomerular filtration rate (GFR) isubznvyvzhtv0413-53-35 06:10:00* Test Item Value Reference Range Interpretation Comments Estimat Glomerular Filtration Rate (test code = 648613529) > 60 >60 Ranges were taken from the National Kidney Disease Education Program and the [facility] Kid[facility] Foundation literature.Reference ranges:60 or greater: Bbgstq40-25 ( for 3 consecutive months): Chronic kidney disease 15 or less: Kidney failureHarris Health System Ben Taub HospitalGlucose xcnxzbztloh1738-20-43 06:10:00* Test Item Value Reference Range Interpretation Comments Glucose Level (test code = NWL5026) 148 74-118 [facility] plasma calcium measurement (mass/volume)2019-07-24 06:10:00* Test Item Value Reference Range Interpretation Comments Calcium Level (test code = 77545-8) 8.6 8.4-10.2 [facility] plasma total bilirubin measurement (mass/volume)2019-07-24 06:10:00* Test Item Value Reference Range Interpretation Comments Total Bilirubin (test code = 1975-2) 0.5 0.2-1.2 [facility] HospitalFluoroscopic procedure less than one hour ygujwxbt2159-99-95 06:10:00* Test Item Value Reference Range Interpretation Comments Aspartate Amino Transf (AST/SGOT) (test code = Aspartate Amino Transf (AST/SGOT)) 14 5-34 [facility] plasma alanine aminotransferase measurement (enzymatic activity/volume)2019-07-24 06:10:00* Test Item Value Reference Range Interpretation Comments Alanine Aminotransferase (ALT/SGPT) (test code = 1742-6) 15 0-55 [facility] plasma protein measurement (mass/volume)2019-07-24 06:10:00* Test Item Value Reference Range Interpretation Comments Total Protein (test code = 2885-2) 6.2 6.5-8.1 [facility] plasma albumin measurement (mass/volume)2019-07-24 06:10:00* Test Item Value Reference Range Interpretation Comments Albumin (test code = 1751-7) 3.1 3.5-5.0 [facility] HospitalPlasma globulin measurement (mass/volume) 2019-07-24 06:10:00* Test Item Value Reference Range Interpretation Comments Globulin (test code = 79526-2) 3.1 2.3-3.5 [facility] plasma albumin/globulin mass riwkf5858-26-89 06:10:00* Test Item Value Reference Range Interpretation Comments Albumin/Globulin Ratio (test code = 1759-0) 1.0 0.8-2.0 [facility] plasma alkaline phosphatase measurement (enzymatic activity/volume)2019-07-24 06:10:00* Test Item Value Reference Range Interpretation Comments Alkaline Phosphatase (test code = 6768-6) 106 40-150 [facility] plasma amylase measurement (enzymatic activity/volume)2019-07-24 06:10:00* Test Item Value Reference Range Interpretation Comments Amylase Level (test code = 1798-8) 36 25-125 [facility] plasma lipase measurement (enzymatic activity/volume)2019-07-24 06:10:00* Test Item Value Reference Range Interpretation Comments Lipase (test code = 3040-3) < 4 8-78 [facility] or plasma amylase measurement (enzymatic activity/volume)2019-07-24 06:10:00* Test Item Value Reference Range Interpretation Comments Amylase Level (test code = 1798-8) 36 25-125 [facility] plasma lipase measurement (enzymatic activity/volume)2019-07-24 06:10:00* Test Item Value Reference Range Interpretation Comments Lipase (test code = 3040-3) < 4 8-78 [facility] plasma amylase measurement (enzymatic activity/volume)2019-07-24 06:10:00* Test Item Value Reference Range Interpretation Comments Amylase Level (test code = 1798-8) 36 25-125 [facility] plasma lipase measurement (enzymatic activity/volume)2019-07-24 06:10:00* Test Item Value Reference Range Interpretation Comments Lipase (test code = 3040-3) < 4 8-78 [facility] HospitalFluoroscopic procedure less than one hour kxlaojtj3283-63-13 12:20:00* Test Item Value Reference Range Interpretation Comments Hemoglobin A1c Percent (test code = Hemoglobin A1c Percent) 8.4 4.0-7.0 [facility] HospitalFluoroscopic procedure less than one hour kqkyorre3198-18-52 12:20:00* Test Item Value Reference Range Interpretation Comments Lactic Acid Level (test code = Lactic Acid Level) 0.8 0.5- 2.0 [facility] HospitalFluoroscopic procedure less than one hour tlwvrfin9180-50-96 12:20:00* Test Item Value Reference Range Interpretation Comments Hemoglobin A1c Percent (test code = Hemoglobin A1c Percent) 8.4 4.0-7.0 [facility] HospitalFluoroscopic procedure less than one hour oumweqzo9015-89-89 12:20:00* Test Item Value Reference Range Interpretation Comments Lactic Acid Level (test code = Lactic Acid Level) 0.8 0.5- 2.0 [facility] HospitalFluoroscopic procedure less than one hour sonhczhb3078-25-32 12:20:00* Test Item Value Reference Range Interpretation Comments Hemoglobin A1c Percent (test code = Hemoglobin A1c Percent) 8.4 4.0-7.0 [facility] HospitalFluoroscopic procedure less than one hour dratbvbv5464-41-51 12:20:00* Test Item Value Reference Range Interpretation Comments Lactic Acid Level (test code = Lactic Acid Level) 0.8 0.5- 2.0 [facility] HospitalFluoroscopic procedure less than one hour dkepkiej7390-83-59 12:20:00* Test Item Value Reference Range Interpretation Comments Hemoglobin A1c Percent (test code = Hemoglobin A1c Percent) 8.4 4.0-7.0 [facility] HospitalFluoroscopic procedure less than one hour qevzyclu6932-72-09 12:20:00* Test Item Value Reference Range Interpretation Comments Lactic Acid Level (test code = Lactic Acid Level) 0.8 0.5- 2.0 [facility] HospitalFluoroscopic procedure less than one hour dpowawor7620-02-80 12:20:00* Test Item Value Reference Range Interpretation Comments Hemoglobin A1c Percent (test code = Hemoglobin A1c Percent) 8.4 4.0-7.0 [facility] HospitalFluoroscopic procedure less than one hour yumelvbd4790-95-11 12:20:00* Test Item Value Reference Range Interpretation Comments Lactic Acid Level (test code = Lactic Acid Level) 0.8 0.5- 2.0 [facility] HospitalFluoroscopic procedure less than one hour tjqidoty9798-91-85 12:20:00* Test Item Value Reference Range Interpretation Comments Hemoglobin A1c Percent (test code = Hemoglobin A1c Percent) 8.4 4.0-7.0 [facility] HospitalFluoroscopic procedure less than one hour rqqfwqxo0654-16-85 12:20:00* Test Item Value Reference Range Interpretation Comments Hemoglobin A1c Percent (test code = Hemoglobin A1c Percent) 8.4 4.0-7.0 [facility] HospitalCT ABD/PEL WO SHIQOEJB-UILQ2945-21-25 06:46:00 [place] [address] Patient Name: BREE LINDSAY MR #: [id number] : 1975 Age/Sex: 43/M Req #: [id number] Adm Physician: Ordered by: NEIL PEREZ MD Report #: [id number] Location: [facility] Room/Bed: Procedure: [id number] HOPD/CT ABD/PEL WO CONTRAST-HOPD Exam Date: 07/23/19 [...] Coronary atherosclerosis (LCX). Signed by: Dr. Allison Admae MD on 07/23/2019 6:58 AM Dictated By: ALLISON ADAME MD Electronically S igned By: ALLISON ADAME MD on 07/23/19657 Transcribed By: PAULA on 07/23/19 COPY TO: NEIL PEREZ MD Bacterial blood cxhfabo6770-97-62 06:44:00* Test Item Value Reference Range Interpretation Comments Blood Culture (test code = 600-7) STAPHYLOCOCCUS SP COAG NEG [facility] blood qixylpb1051-64-19 06:44:00* Test Item Value Reference Range Interpretation Comments Blood Culture (test code = 600-7) STAPHYLOCOCCUS SP COAG NEG [facility] blood eubrbwe0398-30-16 06:44:00* Test Item Value Reference Range Interpretation Comments Blood Culture (test code = 600-7) STAPHYLOCOCCUS SP COAG NEG [facility] HospitalBalaeria blood jgxrxno2828-40-11 06:44:00* Test Item Value Reference Range Interpretation Comments Blood Culture (test code = 600-7) STAPHYLOCOCCUS SP COAG NEG [facility] blood nskjrqe4428-26-08 06:44:00* Test Item Value Reference Range Interpretation Comments Blood Culture (test code = 600-7) STAPHYLOCOCCUS SP COAG NEG [facility] blood efnemcn3130-27-92 06:44:00* Test Item Value Reference Range Interpretation Comments Blood Culture (test code = 600-7) STAPHYLOCOCCUS SP COAG NEG [facility] HospitalBacterial blood vwubhnp0611-40-82 06:44:00* Test Item Value Reference Range Interpretation Comments Blood Culture (test code = 600-7) STAPHYLOCOCCUS SP COAG NEG [facility] paupblo7723-13-36 06:44:00* Test Item Value Reference Range Interpretation Comments Blood Culture (test code = 600-7) STAPHYLOCOCCUS SP COAG NEG [facility] HospitalBacteria blood cwqmnmg7249-53-18 06:44:00* Test Item Value Reference Range Interpretation Comments Blood Culture (test code = 600-7) STAPHYLOCOCCUS SP COAG NEG [facility] HospitalBacteria blood inskvxw4741-89-66 06:44:00* Test Item Value Reference Range Interpretation Comments Blood Culture (test code = 600-7) STAPHYLOCOCCUS SP COAG NEG [facility] HospitalBacteria blood vfnzian9154-35-95 06:44:00* Test Item Value Reference Range Interpretation Comments Blood Culture (test code = 600-7) STAPHYLOCOCCUS SP COAG NEG [facility] HospitalBacteria blood zekahqo1445-74-37 06:44:00* Test Item Value Reference Range Interpretation Comments Blood Culture (test code = 600-7) STAPHYLOCOCCUS SP COAG NEG [facility] blood ebijaxf8769-76-71 06:44:00* Test Item Value Reference Range Interpretation Comments Blood Culture (test code = 600-7) STAPHYLOCOCCUS SP COAG NEG [facility] HospitalBacterial blood qsyjigi7316-43-09 06:44:00* Test Item Value Reference Range Interpretation Comments Blood Culture (test code = 600-7) STAPHYLOCOCCUS SP COAG NEG [facility] HospitalBacteria blood scxcbpw9731-59-88 06:44:00* Test Item Value Reference Range Interpretation Comments Blood Culture (test code = 600-7) STAPHYLOCOCCUS SP COAG NEG [facility] HospitalCXR 1 VEW - XUPZ6653-07-69 06:44:00 [place] [address] Patient Name: BREE LINDSAY MR #: [id number] : 1975 Age/Sex: 43/M Req #: [id number] Adm Physician: Ordered by: NEIL PEREZ MD Report #: [id number] Location: [facility] Room/Bed: Procedure: [id number] HOPD/CXR 1 VEW - HOPD Exam Date: [...] 07/23/19645 COPY TO: NEIL PEREZ MD Blood lxicpxv9639-55-04 06:05:00* Test Item Value Reference Range Interpretation Comments Blood Culture (test code = 13945742) NO GROWTH AFTER 5 DAYS, FINAL REPORT [facility] HospitalBlood dzioskz7617-38-97 06:05:00* Test Item Value Reference Range Interpretation Comments Blood Culture (test code = 22042557) NO GROWTH AFTER 5 DAYS, FINAL REPORT [facility] pkmstjs4425-54-56 06:05:00* Test Item Value Reference Range Interpretation Comments Blood Culture (test code = 33234811) NO GROWTH AFTER 5 DAYS, FINAL REPORT [facility] prtnfcj5675-37-43 06:05:00* Test Item Value Reference Range Interpretation Comments Blood Culture (test code = 67408889) NO GROWTH AFTER 5 DAYS, FINAL REPORT [facility] ozpwwht0393-32-92 06:05:00* Test Item Value Reference Range Interpretation Comments Blood Culture (test code = 12969964) NO GROWTH AFTER 5 DAYS, FINAL REPORT [facility] alkmpiq2501-30-90 06:05:00* Test Item Value Reference Range Interpretation Comments Blood Culture (test code = 05614293) NO GROWTH AFTER 5 DAYS, FINAL REPORT [facility] HospitalBedside Rrgpoea5012-17-38 08:12:00* Test Item Value Reference Range Interpretation Comments Bedside Glucose (test code = 72067-6) 120 70-120 Meter ID: [id number] Health [facility]neodium Level 2019-07-10 07:06:00* Test Item Value Reference Range Interpretation Comments Sodium Level (test code = 2951-2) 139 136-145 [facility] HospitalPotassium Esakl6219-35-79 07:06:00* Test Item Value Reference Range Interpretation Comments Potassium Level (test code = 2823-3) 3.3 3.5-5.1 L [facility] HospitalChloride Xwisp3439-58-37 07:06:00* Test Item Value Reference Range Interpretation Comments Chloride Level (test code = 2075-0) 102 98-107 [facility] HospitalCarbon Dioxide Yogyr8326-58-31 07:06:00* Test Item Value Reference Range Interpretation Comments Carbon Dioxide Level (test code = 2028-9) 28 22-29 [facility] HospitalAnion Emk2770-37-36 07:06:00* Test Item Value Reference Range Interpretation Comments Anion Gap (test code = 81549-0) 12.3 8-16 [facility] U[facility] Mjvgtbcd5467-58-94 07:06:00* Test Item Value Reference Range Interpretation Comments Blood Urea Nitrogen (test code = 3094-0) 31 7-26 H [facility] HospitalCreatinine2020-04-12 07:06:00* Test Item Value Reference Range Interpretation Comments Creatinine (test code = 2160-0) 1.55 0.72-1.25 H [facility] HospitalBUN/Creatinine Mdipe2537-84-66 07:06:00* Test Item Value Reference Range Interpretation Comments BUN/Creatinine Ratio (test code = 3097-3) 20 6-25 [facility] HospitalEstimat Glomerular Filtration Rate 2019-07-10 07:06:00* Test Item Value Reference Range Interpretation Comments Estimat Glomerular Filtration Rate (test code = 547115533) 60 >60 Ranges were taken from the National Kidney Disease Education Program and the [facility] literature.Reference ranges:60 or greater: Novzys87-73 ( for 3 consecutive months): Chronic kidney disease 15 or less: Kidney failureHarris Health System Ben Taub HospitalGlucose Yesli3362-90-97 07:06:00* Test Item Value Reference Range Interpretation Comments Glucose Level (test code = CIM5562) 92 74-118 [facility] HospitalCalcium Gandu2710-96-65 07:06:00* Test Item Value Reference Range Interpretation Comments Calcium Level (test code = 74332-2) 8.1 8.4-10.2 L [facility] HospitalMagnesium Uhzct2684-91-14 06:53:00* Test Item Value Reference Range Interpretation Comments Magnesium Level (test code = 27273-4) 1.8 1.3-2.1 [facility] HospitalWhite Blood Thdsp4375-76-62 06:24:00* Test Item Value Reference Range Interpretation Comments White Blood Count (test code = 6690-2) 8.09 4.8-10.8 [facility] HospitalRed Blood Ubjmy0125-92-26 06:24:00* Test Item Value Reference Range Interpretation Comments Red Blood Count (test code = 789-8) 3.66 4.3-5.7 L [facility] HospitalHemoglobin2020-04-12 06:24:00* Test Item Value Reference Range Interpretation Comments Hemoglobin (test code = 81230-7) 10.1 14.0-18.0 L [facility] HospitalHematocrit2020-04-12 06:24:00* Test Item Value Reference Range Interpretation Comments Hematocrit (test code = 4544-3) 32.4 38.2-49.6 L [facility] HospitalMean Corpuscular Pdhrmq0523-71-88 06:24:00* Test Item Value Reference Range Interpretation Comments Mean Corpuscular Volume (test code = 787-2) 88.5 81-99 [facility] HospitalMean Corpuscular Zapkomehmu5226-03-72 06:24:00* Test Item Value Reference Range Interpretation Comments Mean Corpuscular Hemoglobin (test code = 785-6) 27.6 28-32 L [facility] HospitalMean Corpuscular Hemoglobin Concent 2019-07-10 06:24:00* Test Item Value Reference Range Interpretation Comments Mean Corpuscular Hemoglobin Concent (test code = 786-4) 31.2 31-35 [facility] HospitalRed Cell Distribution Zxxmr4216-48-85 06:24:00* Test Item Value Reference Range Interpretation Comments Red Cell Distribution Width (test code = 24587-6) 13.8 11.7 -14.4 [facility] HospitalPlatelet Gmbbd3427-38-95 06:24:00* Test Item Value Reference Range Interpretation Comments Platelet Count (test code = 777-3) 191 140-360 [facility] HospitalNeutrophils (%) (Auto)2019-07-10 06:24:00 * Test Item Value Reference Range Interpretation Comments Neutrophils (%) (Auto) (test code = 42432-4) 61.6 38.7-80.0 [facility] HospitalLymphocytes (%) (Auto)2019-07-10 06:24:00 * Test Item Value Reference Range Interpretation Comments Lymphocytes (%) (Auto) (test code = 736-9) 26.7 18.0-39.1 [facility] HospitalMonocytes (%) (Auto)2019-07-10 06:24:00* Test Item Value Reference Range Interpretation Comments Monocytes (%) (Auto) (test code = 5905-5) 10.3 4.4-11.3 [facility] HospitalEosinophils (%) (Auto)2019-07-10 06:24:00 * Test Item Value Reference Range Interpretation Comments Eosinophils (%) (Auto) (test code = 713-8) 0.6 0.0-6.0 [facility] HospitalBasophils (%) (Auto)2019-07-10 06:24:00* Test Item Value Reference Range Interpretation Comments Basophils (%) (Auto) (test code = 706-2) 0.6 0.0-1.0 [facility] HospitalIM GRANULOCYTES %2019-07-10 06:24:00* Test Item Value Reference Range Interpretation Comments IM GRANULOCYTES % (test code = IM GRANULOCYTES %) 0.2 0.0- 1.0 [facility] HospitalNeutrophils # (Auto)2019-07-10 06:24:00* Test Item Value Reference Range Interpretation Comments Neutrophils # (Auto) (test code = 751-8) 5.0 2.1-6.9 [facility] HospitalLymphocytes # (Auto)2019-07-10 06:24:00* Test Item Value Reference Range Interpretation Comments Lymphocytes # (Auto) (test code = 79851-2) 2.2 1.0-3.2 [facility] HospitalMonocytes # (Auto)2019-07-10 06:24:00* Test Item Value Reference Range Interpretation Comments Monocytes # (Auto) (test code = 742-7) 0.8 0.2-0.8 [facility] HospitalEosinophils # (Auto)2019-07-10 06:24:00* Test Item Value Reference Range Interpretation Comments Eosinophils # (Auto) (test code = 711-2) 0.1 0.0-0.4 [facility] HospitalBasophils # (Auto)2019-07-10 06:24:00* Test Item Value Reference Range Interpretation Comments Basophils # (Auto) (test code = 704-7) 0.1 0.0-0.1 [facility] HospitalAbsolute Immature Granulocyte (auto 2019-07-10 06:24:00* Test Item Value Reference Range Interpretation Comments Absolute Immature Granulocyte (auto (zeenat t code = Absolute Immature Granulocyte (auto) 0.02 0-0.1 [facility]ne[facility]um or plasma magnesium measurement (mass/volume)2019-07-10 05:32:00* Test Item Value Reference Range Interpretation Comments Magnesium Level (test code = 14556-2) 1.8 1.3-2.1 [facility] Cle[facility]neerum or plasma magnesium measurement (mass/volume)2019-07-10 05:32:00* Test Item Value Reference Range Interpretation Comments Magnesium Level (test code = 64049-1) 1.8 1.3-2.1 [facility] Cleburneerum or plasma magnesium measurement (mass/volume)2019-07-10 05:32:00* Test Item Value Reference Range Interpretation Comments Magnesium Level (test code = 27232-0) 1.8 1.3-2.1 [facility] Cle[facility]neerum or plasma magnesium measurement (mass/volume)2019-07-10 05:32:00* Test Item Value Reference Range Interpretation Comments Magnesium Level (test code = 31106-5) 1.8 1.3-2.1 [facility] Cle[facility]neerum or plasma magnesium measurement (mass/volume)2019-07-10 05:32:00* Test Item Value Reference Range Interpretation Comments Magnesium Level (test code = 16813-4) 1.8 1.3-2.1 [facility] Cle[facility]neerum or plasma magnesium measurement (mass/volume)2019-07-10 05:32:00* Test Item Value Reference Range Interpretation Comments Magnesium Level (test code = 52168-3) 1.8 1.3-2.1 [facility]neerum or plasma magnesium measurement (mass/volume)2019-07-10 05:32:00* Test Item Value Reference Range Interpretation Comments Magnesium Level (test code = 76031-8) 1.8 1.3-2.1 [facility]neerum or plasma magnesium measurement (mass/volume)2019-07-10 05:32:00* Test Item Value Reference Range Interpretation Comments Magnesium Level (test code = 28053-7) 1.8 1.3-2.1 [facility] Cle[facility]neerum or plasma magnesium measurement (mass/volume)2019-07-10 05:32:00* Test Item Value Reference Range Interpretation Comments Magnesium Level (test code = 50897-5) 1.8 1.3-2.1 [facility] Cle[facility]neerum or plasma magnesium measurement (mass/volume)2019-07-10 05:32:00* Test Item Value Reference Range Interpretation Comments Magnesium Level (test code = 53204-0) 1.8 1.3-2.1 [facility] Cle[facility]neerum or plasma magnesium measurement (mass/volume)2019-07-10 05:32:00* Test Item Value Reference Range Interpretation Comments Magnesium Level (test code = 00931-8) 1.8 1.3-2.1 [facility] Cle[facility]neerum or plasma magnesium measurement (mass/volume)2019-07-10 05:32:00* Test Item Value Reference Range Interpretation Comments Magnesium Level (test code = 39956-9) 1.8 1.3-2.1 [facility]neerum or plasma magnesium measurement (mass/volume)2019-07-10 05:32:00* Test Item Value Reference Range Interpretation Comments Magnesium Level (test code = 42889-5) 1.8 1.3-2.1 [facility]neerum or plasma magnesium measurement (mass/volume)2019-07-10 05:32:00* Test Item Value Reference Range Interpretation Comments Magnesium Level (test code = 62096-9) 1.8 1.3-2.1 [facility] Cle[facility]neerum or plasma magnesium measurement (mass/volume)2019-07-10 05:32:00* Test Item Value Reference Range Interpretation Comments Magnesium Level (test code = 74526-4) 1.8 1.3-2.1 [facility] HospitalGLUBED2020-02-10 08:55:00* Test Item Value Reference Range Interpretation Comments GLUBED (test code = GLUBED) 122 mg/dL 74-106 H Performed by certified derrick operator at [facility] ADEXXU0464-22-34 08:43:00* Test Item Value Reference Range Interpretation Comments GLUBED (test code = GLUBED) 140 mg/dL 74-106 H Performed by certified derrick operator at [facility] - XR SHOULDER 1 V [id number] 13:41:00 FAX: Jg Astudillo MD [phone] [place]: St: REG FAX: Riley Zavala DO [phone] Name: BREE LINDSAY [facility] : 1975 Age/S: 43/M [address] [place] [address] Blvd Unit #: [id number] Loc: [place] X [address] Phys: Jg Astudillo MD Acct: [id number] Dis Date: Status: REG CLI PHONE #: [phone] Exam Date: 03/02/2019 1333 FAX #: [phone] Reason: PICC PLACEMENT EXAMS: CPT CODE: [id number] XR SHOULDER 1 [place] [address] 1 VIEW LEFT SHOULDER HISTORY: PICC line pl acement.. Left upper extremity PICC line present. Catheter tip pr ojects over the level of the inferior 3rd of the SVC. END IMPRESSION SL: [id number] at 1341 Reported and sig lizette by: Yusuf Burgos M.D. CC: Jg Astudillo MD; Zak Beckman DO Technologist: RT Rashida(R) Trnscrd Date/Time/By: 03/02/2019 (1391) : By: [email or web address] Orig Print D/T: S: 03/02/2019 (9654) PAGE 1 Signed Report [id number] 08:06:00* Test Item Value Reference Range Interpretation Comments GLUBED (test code = GLUBED) 224 mg/dL 74-106 H Performed by certified derrick operator at [facility] YTIBTT7758-12-00 22:57:00* Test Item Value Reference Range Interpretation Comments GLUBED (test code = GLUBED) 62 mg/dL 74-106 L Performed by certified derrick operator at [facility] YTXJJU5438-26-55 18:14:00* Test Item Value Reference Range Interpretation Comments GLUBED (test code = GLUBED) 158 mg/dL 74-106 H Performed by certified derrick operator at [facility] JBEAHN2263-42-07 11:43:00* Test Item Value Reference Range Interpretation Comments GLUBED (test code = GLUBED) 123 mg/dL 74-106 H Performed by certified derrick operator at [facility] BASIC METABOLIC GCXWC3563-14-20 11:04:00* Test Item Value Reference Range Interpretation [...] CA) 8.5 mg/dL 8.5-10.1 N BASIC METABOLIC [id number] 10:55:00* Test Item Value Reference Range Interpretation [...] code = CA) mg/dL 8.5-10.1 CBC W/AUTO CCFS1628-24-30 10:13:00* Test Item Value Reference Range Interpretation [...] code = NRBC#) 0.00 K/mm3 0.0-0.1 N PTRVIO4199-78-54 08:19:00* Test Item Value Reference Range Interpretation Comments GLUBED (test code = GLUBED) 81 mg/dL 74-106 N Performed by certified derrick operator at [facility] PQJKZM7851-33-71 22:30:00* Test Item Value Reference Range Interpretation Comments GLUBED (test code = GLUBED) 243 mg/dL 74-106 H Performed by certified derrick operator at [facility] AODWNL7215-77-79 17:17:00* Test Item Value Reference Range Interpretation Comments GLUBED (test code = GLUBED) 91 mg/dL 74-106 N Performed by certified derrick operator at [facility] BLOOD UREA ULDTDFEE9148-86-84 13:49:00* Test Item Value Reference Range Interpretation Comments BLOOD UREA NITROGEN (test code = BUN) 8 mg/dL 7-18 N 2 PHELBS GONE UP AND TRIED TO DRAW BLOOD PT SAID COME BACKINFORMED PAIGE LIU E4812 V.LAB.KP2 02/19/19 1037 MGDHTNVAPQ2764-87-36 13:49:00* Test Item Value Reference Range Interpretation Comments CREATININE (test code = CREAT) 0.90 mg/dL 0.7-1.3 N 2 PHELBS GONE UP AND TRIED TO DRAW BLOOD PT SAID COME BACKINFORMED PAIGE LIU E4812 V.LAB.KP2 02/19/19 1037 CBC W/AUTO IITV8117-68-59 13:02:00* Test Item Value Reference Range Interpretation [...] TO COME BACK LATER NOTIFIED PAIGE ALANISKP211/ 6565OCXKTM1406-98-74 11:50:00* Test Item Value Reference Range Interpretation Comments GLUBED (test code = GLUBED) 147 mg/dL 74-106 H Performed by certified derrick operator at [facility] KGGZDY9166-69-91 10:37:00* Test Item Value Reference Range Interpretation Comments GLUBED (test code = GLUBED) 97 mg/dL 74-106 N Performed by certified derrick operator at [facility] FXRXOV3302-52-81 21:43:00* Test Item Value Reference Range Interpretation Comments GLUBED (test code = GLUBED) 162 mg/dL 74-106 H Performed by certified derrick operator at [facility] NAWOCJ9003-41-89 16:06:00* Test Item Value Reference Range Interpretation Comments GLUBED (test code = GLUBED) 98 mg/dL 74-106 N Performed by certified derrick operator at [facility] - XR CHEST 1 [id number] 14:36:00 FAX: Olegario Diaz MD [phone] [place]: B St: [facility] FAX: Iris Laio [phone] FAX: Riley Zavala DO [phone] Name: BREE LINDSAY [facility] : 1975 Age/S: 43/M [address] Unit #: [id number] Loc: V.3070 [place] [address] Phys: Iris Liao SLEEP TECHNOLOGIST Acct: [id number] Dis Date: Status: ADM IN ONE #: [phone] Exam Date: 02/18/2019 1339 FAX #: [phone] Reason: PICC TIP CONFIRMATION EXAMS: CPT CODE: [id number] XR CHEST 1 V 24473 REASON FOR EXAM: PICC TIP CONFIRMATION Exam [...] new finding from the prior exam. Location: [facility] Electronically Signed by Mulugeta Espinoza MD on at 1436 Reported and signed by: Mulugeta Espinoza MD CC: Olegario Diaz MD; Iris Liao NP; Riley Beckman DO Technologist: Ngozi Lombardo RT(R); Lucie Hassan RDonTDon(R) Trnscrd Date/Time/By: 01/29 (0501) : By: [email or web address] Orig Print D/T: S: 02/18/2019 (5394) PAGE 1 Signed Report [id number] 12:20:00* Test Item Value Reference Range Interpretation Comments GLUBED (test code = GLUBED) 141 mg/dL 74-106 H Performed by certified derrick operator at [facility] [id number] 07:15:00* Test Item Value Reference Range Interpretation Comments GLUBED (test code = GLUBED) 129 mg/dL 74-106 H Performed by certified derrick operator at [facility] NIELYY7939-87-60 00:21:00* Test Item Value Reference Range Interpretation Comments GLUBED (test code = GLUBED) 166 mg/dL 74-106 H Performed by certified derrick operator at [facility] [id number] 20:50:00* Test Item Value Reference Range Interpretation Comments GLUBED (test code = GLUBED) 194 mg/dL 74-106 H Performed by certified derrick operator at [facility] QUZDANFKTT9908-30-09 18:19:00* Test Item Value Reference Range Interpretation Comments VANCOMYCIN (test code = VANCO) 25.9 UG/ML 5.0-45.0 N [id number] 16:41:00* Test Item Value Reference Range Interpretation Comments GLUBED (test code = GLUBED) 223 mg/dL 74-106 H Performed by certified derrick operator at [facility] [id number] 13:22:00* Test Item Value Reference Range Interpretation Comments GLUBED (test code = GLUBED) 95 mg/dL 74-106 N Performed by certified derrick operator at [facility] BAICLB9313-92-85 13:22:00* Test Item Value Reference Range Interpretation Comments GLUBED (test code = GLUBED) 61 mg/dL 74-106 L Performed by certified derrick operator at [facility] [id number] 13:22:00* Test Item Value Reference Range Interpretation Comments GLUBED (test code = GLUBED) 32 mg/dL 74-106 LL Test performed as P.O.C. by nursing staff.Performed by certified derrick operator at [facility] [id number] 13:22:00* Test Item Value Reference Range Interpretation Comments GLUBED (test code = GLUBED) 28 mg/dL 74-106 LL Test performed as P.O.C. by nursing staff.[facility] certified [facility]~ [id number] 11:50:00* Test Item Value Reference Range Interpretation Comments GLUBED (test code = GLUBED) 104 mg/dL 74-106 N Performed by certified derrick operator at [facility] CBC W/MANUAL [id number] 09:27:00* Test Item Value Reference Range Interpretation [...] code = IMMAT) 0 % 0-0 N [id number] 07:51:00* Test Item Value Reference Range Interpretation Comments GLUBED (test code = GLUBED) 244 mg/dL 74-106 H Performed by certified derrick operator at [facility] BASIC METABOLIC [id number] 07:23:00* Test Item Value Reference Range Interpretation [...] CA) 7.9 mg/dL 8.5-10.1 L BASIC METABOLIC [id number] 07:13:00* Test Item Value Reference Range Interpretation [...] code = CA) mg/dL 8.5-10.1 CBC W/MANUAL [id number] 07:10:00* Test Item Value Reference Range Interpretation [...] MORPHOLOGY (test code = PLTMORPH) CBC W/MANUAL [id number] 07:10:00* Test Item Value Reference Range Interpretation [...] MORPHOLOGY (test code = PLTMORPH) CBC W/MANUAL [id number] 07:10:00* Test Item Value Reference Range Interpretation [...] MORPHOLOGY (test code = PLTMORPH) CBC W/MANUAL [id number] 07:09:00* Test Item Value Reference Range Interpretation [...] MORPHOLOGY (test code = PLTMORPH) CBC W/MANUAL [id number] 07:09:00* Test Item Value Reference Range Interpretation [...] MORPHOLOGY (test code = PLTMORPH) SED RATE [id number] 21:42:00* Test Item Value Reference Range Interpretation Comments SED RATE WESTERGREN (test code = SEDW) 76 mm/hr 0-15 H SED [id number] 21:42:00* Test Item Value Reference Range Interpretation Comments SED RATE (test code = SEDW) 76 mm/hr 0-15 H WINTROBE METHOD: NORMAL RANGE FOR MEN: 0-9 MM/HR WOMAN: 0-20 MM/HR [id number] 20:54:00* Test Item Value Reference Range Interpretation Comments GLUBED (test code = GLUBED) 345 mg/dL 74-106 H Performed by certified derrick operator at [facility] [id number] 16:36:00* Test Item Value Reference Range Interpretation Comments GLUBED (test code = GLUBED) 37 mg/dL 74-106 LL Performed by certified derrick operator at [facility] [id number] 16:30:00* Test Item Value Reference Range Interpretation Comments GLUBED (test code = GLUBED) 94 mg/dL 74-106 N Performed by certified derrick operator at [facility] [id number] 12:04:00* Test Item Value Reference Range Interpretation Comments GLUBED (test code = GLUBED) 236 mg/dL 74-106 H Performed by certified derrick operator at [facility] CBC W/MANUAL [id number] 08:49:00* Test Item Value Reference Range Interpretation [...] IMMAT) 0 % 0-0 N BASIC METABOLIC [id number] 08:29:00* Test Item Value Reference Range Interpretation [...] CA) 7.9 mg/dL 8.5-10.1 L CBC W/MANUAL [id number] 08:09:00* Test Item Value Reference Range Interpretation [...] MORPHOLOGY (test code = PLTMORPH) CBC W/MANUAL [id number] 08:09:00* Test Item Value Reference Range Interpretation [...] MORPHOLOGY (test code = PLTMORPH) CBC W/MANUAL [id number] 08:09:00* Test Item Value Reference Range Interpretation [...] MORPHOLOGY (test code = PLTMORPH) CBC W/MANUAL [id number] 08:09:00* Test Item Value Reference Range Interpretation [...] MORPHOLOGY (test code = PLTMORPH) CBC W/MANUAL [id number] 08:09:00* Test Item Value Reference Range Interpretation [...] PLTEST) PLATELET MORPHOLOGY (test code = PLTMORPH) [id number] 07:33:00* Test Item Value Reference Range Interpretation Comments GLUBED (test code = GLUBED) 315 mg/dL 74-106 H Performed by certified derrick operator at [facility] [id number] 19:56:00* Test Item Value Reference Range Interpretation Comments GLUBED (test code = GLUBED) 90 mg/dL 74-106 N Performed by certified derrick operator at [facility] [id number] 19:07:00* Test Item Value Reference Range Interpretation Comments GLUBED (test code = GLUBED) 107 mg/dL 74-106 H Performed by certified derrick operator at [facility] [id number] 19:07:00* Test Item Value Reference Range Interpretation Comments GLUBED (test code = GLUBED) 49 mg/dL 74-106 LL [facility] certified derrick [facility] [id number] 17:50:00* Test Item Value Reference Range Interpretation Comments POTASSIUM (test code = K) 3.0 mmol/L 3.5-5.1 L RE SULT VERIFIED BY REPEAT ANALYSIS [id number] 17:08:00* Test Item Value Reference Range Interpretation Comments GLUBED (test code = GLUBED) 66 mg/dL 74-106 L Performed by certified derrick operator at [facility] [id number] 16:57:00* Test Item Value Reference Range Interpretation Comments GLUBED (test code = GLUBED) 76 mg/dL 74-106 N Performed by certified derrick operator at [facility] [id number] 13:11:00* Test Item Value Reference Range Interpretation Comments POTASSIUM (test code = K) 5.2 mmol/L 3.5-5.1 H [id number] 11:49:00* Test Item Value Reference Range Interpretation Comments GLUBED (test code = GLUBED) 81 mg/dL 74-106 N Performed by certified derrick operator at [facility] [id number] 09:39:00* Test Item Value Reference Range Interpretation Comments GLUBED (test code = GLUBED) 78 mg/dL 74-106 N Performed by certified derrick operator at [facility] - MRI LOW EXT W/O CONT [id number] 09:36:00 FAX: Olegario Diaz MD [phone] [place]: [address] St: ADM FAX: Heavenly Kerr DPM [phone] FAX: Riley Zavala [phone] Name: BREE LINDSAY [facility] : 1975 Age/S: 43/M [address] [facility] Unit #: [id number] Loc: V.[address] [place] [address] Phys: Heavenly Null DPM Acct: [id number] Dis Date: Status: ADM IN ONE #: [phone] Exam Date: 02/15/2019 0859 FAX #: [phone] Reason: cellulitis EXAMS: CPT CODE: [id number] MR [place] LOW EXT W/[place] [address] HISTORY: Cellu litis TECHNIQUE: Sagittal T1, sagittal [...] By: [email or web address] Orig Print D/T: S: 02/15/2019 (2450) PAGE 1 Signed Report GLUBED 2019-02-15 07:22:00* Test Item Value Reference Range Interpretation Comments GLUBED (test code = GLUBED) 57 mg/dL 74-106 L Performed by certified derrick operator at [facility] BASIC METABOLIC [id number] 05:15:00* Test Item Value Reference Range Interpretation Comments SODIUM (test code = NA) 136 mmol/L 136-145 N POTASSIUM (test code = K) 2.7 mmol/L 3.5-5.1 Re sults called to [id number] by DOT 02/15/19 0515Critical results verified and [...] CA) 8.3 mg/dL 8.5-10.1 L C REACTIVE [id number] 04:21:00* Test Item Value Reference Range Interpretation Comments C REACTIVE PROTEIN (test code = CRP) 27.10 mg/dL 0-0.3 H CBC W/MANUAL [id number] 04:05:00* Test Item Value Reference Range Interpretation [...] IMMAT) 0 % 0-0 N CBC W/MANUAL [id number] 03:30:00* Test Item Value Reference Range Interpretation [...] PLTEST) PLATELET MORPHOLOGY (test code = PLTMORPH) [id number] 20:26:00* Test Item Value Reference Range Interpretation Comments GLUBED (test code = GLUBED) 151 mg/dL 74-106 H Performed by certified derrick operator at [facility] [id number] 17:12:00* Test Item Value Reference Range Interpretation Comments GLUBED (test code = GLUBED) 124 mg/dL 74-106 H Performed by certified derrick operator at [facility] [id number] 17:07:00* Test Item Value Reference Range Interpretation Comments GLUBED (test code = GLUBED) 81 mg/dL 74-106 N Performed by certified derrick operator at [facility] [id number] 12:13:00* Test Item Value Reference Range Interpretation Comments GLUBED (test code = GLUBED) 95 mg/dL 74-106 N Performed by certified derrick operator at [facility] CBC W/MANUAL [id number] 08:15:00* Test Item Value Reference Range Interpretation [...] code = IMMAT) 0 % 0-0 N [id number] 07:18:00* Test Item Value Reference Range Interpretation Comments GLUBED (test code = GLUBED) 195 mg/dL 74-106 H Performed by certified derrick operator at [facility] BASIC METABOLIC [id number] 07:16:00* Test Item Value Reference Range Interpretation [...] code = CA) 8.4 mg/dL 8.5-10.1 L [id number] 07:16:00* Test Item Value Reference Range Interpretation Comments MAGNESIUM (test code = MAG) 1.7 mg/dL 1.8-2.4 L CBC W/MANUAL [id number] 06:58:00* Test Item Value Reference Range Interpretation [...] MORPHOLOGY (test code = PLTMORPH) CBC W/MANUAL [id number] 06:58:00* Test Item Value Reference Range Interpretation [...] MORPHOLOGY (test code = PLTMORPH) CBC W/MANUAL [id number] 06:58:00* Test Item Value Reference Range Interpretation [...] MORPHOLOGY (test code = PLTMORPH) CBC W/MANUAL [id number] 06:58:00* Test Item Value Reference Range Interpretation [...] MORPHOLOGY (test code = PLTMORPH) CBC W/MANUAL [id number] 06:58:00* Test Item Value Reference Range Interpretation [...] MORPHOLOGY (test code = PLTMORPH) BASIC METABOLIC [id number] 06:56:00* Test Item Value Reference Range Interpretation [...] CALCIUM (test code = CA) mg/dL 8.5-10.1 [id number] 06:56:00* Test Item Value Reference Range Interpretation Comments MAGNESIUM (test code = MAG) mg/dL 1.8-2.4 [id number] 20:42:00* Test Item Value Reference Range Interpretation Comments GLUBED (test code = GLUBED) 261 mg/dL 74-106 H Performed by certified derrick operator at [facility] CBC W/MANUAL [id number] 10:55:00* Test Item Value Reference Range Interpretation [...] MORPHOLOGY (test code = PLTMORPH) NORMAL URINALYSIS [id number] 10:38:00* Test Item Value Reference Range Interpretation [...] Clean Catch- XR FOOT 3 + V [id number] 10:33:00 Name: BREE LINDSAY [facility] : 1975 Age/S:43 /M [address] [facility] Unit#:[id number] Loc: [place] [address] Phys: Chandan Cage MD Dis Date: PHONE #: [phone] Status: REG ER FAX #: [phone] Exam Date: 02/13/2019 Re ason: left foot swelling EXAMS: CPT CODE: [id number] XR FOOT 3 + [place] [address] CLINICAL HISTORY: left foot swelling TECHNIQUE: AP, [...] but no acute underlying bony injury. Location: [facility] at 1033 Reported and signed by: Mulugeta Espinoza MD CC: Tracy Cage MD; Riley Beckman DO Technologist: Stone Sadler RT(R)(CT) Trnscrpt Data: 02/13/2019 (1033) t.SDR.RR31 Orig Print D/T: S: 02/13/2019 (1031) PAGE 1 Signed Report LACTIC [id number] 10:28:00* Test Item Value Reference Range Interpretation Comments LACTIC ACID (test code = LACT) 1.6 MMOL/L 0.4-1.9 N BASIC METABOLIC [id number] 10:28:00* Test Item Value Reference Range Interpretation [...] CA) 8.7 mg/dL 8.4-10.2 N HEPATIC FUNCTION [id number] 10:28:00* Test Item Value Reference Range Interpretation [...] code = ALKP) 120 U/L 38-126 N [id number] 10:28:00* Test Item Value Reference Range Interpretation Comments TROPONIN-I (test code = TROPI) <0.015 ng/mL 0.00-0.056 N URINALYSIS [id number] 10:20:00* Test Item Value Reference Range Interpretation [...] HPF NONE Urine Source? Clean CatchBASIC METABOLIC [id number] 10:19:00* Test Item Value Reference Range Interpretation [...] CA) 8.7 mg/dL 8.4-10.2 N HEPATIC FUNCTION [id number] 10:19:00* Test Item Value Reference Range Interpretation [...] TOTAL (test code = ALKP) IUnit/L 45-117 [id number] 10:19:00* Test Item Value Reference Range Interpretation Comments TROPONIN-I (test code = TROPI) ng/mL 0-0.045 CBC W/MANUAL [id number] 10:13:00* Test Item Value Reference Range Interpretation [...] MORPHOLOGY (test code = PLTMORPH) CBC W/MANUAL [id number] 10:02:00* Test Item Value Reference Range Interpretation [...] MORPHOLOGY (test code = PLTMORPH) CBC W/MANUAL [id number] 10:02:00* Test Item Value Reference Range Interpretation [...] MORPHOLOGY (test code = PLTMORPH) CBC W/MANUAL [id number] 10:02:00* Test Item Value Reference Range Interpretation [...] MORPHOLOGY (test code = PLTMORPH) CBC W/MANUAL [id number] 10:02:00* Test Item Value Reference Range Interpretation [...] code = PLTMORPH) - XR CHEST 1 [id number] 09:56:00 Name: BREE LINDSAY [facility] : 1975 Age/S:43 /M [address] [facility] Unit#:[id number] Loc: [place] [address] Phys: Tracy Cage MD Dis Date: PHONE #: [phone] Status: REG ER FAX #: [phone] Exam Date: 02/13/2019 Reason: CODE SEPSIS EXAMS: CPT CODE: [id number] XR CHEST 1 V 78130 REASON FOR EXAM: CODE SEPSIS Exam Order [...] cholecystectomy. IMPRESSION: No acute cardiopulmonary process. Location: [facility] Elect ronically Signed by Mulugeta Espinoza MD on 02/13/2019 at 0956 Reported and signed by: Mulugeta Espinoza MD CC: Tracy Cage MD; Keeley Beckman DO Technologist: Stone Sadler RT(R)(CT) Trnscrpt Data: 02/13/2019 (0956) t.SDR.RR31 Orig Print D/T: S: 02/13/2019 (0959) PAGE 1 Signed Report [id number] 16:17:00* Test Item Value Reference Range Interpretation Comments GLUBED (test code = GLUBED) 187 mg/dL 74-106 H Performed by certified derrick operator at [facility] [id number] 11:57:00* Test Item Value Reference Range Interpretation Comments GLUBED (test code = GLUBED) 147 mg/dL 74-106 H Performed by certified derrick operator at [facility] [id number] 07:34:00* Test Item Value Reference Range Interpretation Comments GLUBED (test code = GLUBED) 110 mg/dL 74-106 H Performed by certified derrick operator at [facility] CBC W/MANUAL [id number] 05:59:00* Test Item Value Reference Range Interpretation [...] IMMAT) 0 % 0-0 N BASIC METABOLIC [id number] 05:25:00* Test Item Value Reference Range Interpretation Comments SODIUM (test code = NA) 138 mmol/L 136-145 N POTASSIUM (test code = K) 2.7 mmol/L 3.5-5.1 Re sults called to [id number] by DOT 02/12/19 0525Critical results verified and [...] CA) 8.4 mg/dL 8.5-10.1 L CBC W/MANUAL [id number] 05:04:00* Test Item Value Reference Range Interpretation [...] MORPHOLOGY (test code = PLTMORPH) CBC W/MANUAL [id number] 05:04:00* Test Item Value Reference Range Interpretation [...] MORPHOLOGY (test code = PLTMORPH) CBC W/MANUAL [id number] 05:04:00* Test Item Value Reference Range Interpretation [...] MORPHOLOGY (test code = PLTMORPH) CBC W/MANUAL [id number] 05:04:00* Test Item Value Reference Range Interpretation [...] MORPHOLOGY (test code = PLTMORPH) CBC W/MANUAL [id number] 05:04:00* Test Item Value Reference Range Interpretation [...] interpreted taking into account the patients history. [id number] 19:42:00* Test Item Value Reference Range Interpretation Comments GLUBED (test code = GLUBED) 131 mg/dL 74-106 H Performed by certified derrick operator at [facility] LACTIC [id number] 19:38:00* Test Item Value Reference Range Interpretation Comments LACTIC ACID (test code = LACT) 0.7 mmol/L 0.4-1.9 N [id number] 18:44:00* Test Item Value Reference Range Interpretation Comments GLUBED (test code = GLUBED) 129 mg/dL 74-106 H Performed by certified derrick operator at [facility] [id number] 16:34:00* Test Item Value Reference Range Interpretation Comments GLUBED (test code = GLUBED) 66 mg/dL 74-106 L Performed by certified derrick operator at [facility] [id number] 12:07:00* Test Item Value Reference Range Interpretation Comments GLUBED (test code = GLUBED) 285 mg/dL 74-106 H Performed by certified derrick operator at [facility] - XR CHEST 1 [id number] 08:53:00 FAX: Faith Cook MD [phone] [place]: [address] St: [facility] FAX: Rliey Zavala DO [phone] Name: BREE LINDSAY [facility] : 1975 Age/S: 43/M [address] Unit #: [id number] Loc: [address] [place] [address] Phys: Faith Roy MD Acct: [id number] Dis Date: Status: ADM IN PHONE #: [phone] Exam Date: 02/11/2019829 FAX #: [phone] Reason: Leukocytosis EXAMS: CPT CODE: [id number] XR CHEST 1 V 73488 HISTORY: Leukocytosis. COMPARISON: January 12, 2018. Location: [facility]. No acute infiltrates, effusion or congestion is noted. Mild cardiomegaly. IMPRESSION: No acute infiltrates, effusion or congestion. at 0853 Reported and signed by: Alexandr Pacheco M.D. CC: Faith Roy MD; Riley Beckman DO Technologist: BERNABE Diez Trnscrd Date/Time/By: 02/11/2019 (0853) : By: [email or web address] Orig Print D/T: S: 02/11/2019 (0856) PAGE 1 Signed Report [id number] 07:52:00* Test Item Value Reference Range Interpretation Comments GLUBED (test code = GLUBED) 293 mg/dL 74-106 H Performed by certified derrick operator at [facility] CBC W/MANUAL [id number] 06:45:00* Test Item Value Reference Range Interpretation [...] IMMAT) 0 % 0-0 N BASIC METABOLIC [id number] 06:37:00* Test Item Value Reference Range Interpretation [...] CA) 8.6 mg/dL 8.5-10.1 N BASIC METABOLIC [id number] 06:31:00* Test Item Value Reference Range Interpretation [...] code = CA) mg/dL 8.5-10.1 CBC W/MANUAL [id number] 06:18:00* Test Item Value Reference Range Interpretation [...] MORPHOLOGY (test code = PLTMORPH) CBC W/MANUAL [id number] 06:18:00* Test Item Value Reference Range Interpretation [...] MORPHOLOGY (test code = PLTMORPH) CBC W/MANUAL [id number] 06:18:00* Test Item Value Reference Range Interpretation [...] MORPHOLOGY (test code = PLTMORPH) CBC W/MANUAL [id number] 06:18:00* Test Item Value Reference Range Interpretation [...] MORPHOLOGY (test code = PLTMORPH) CBC W/MANUAL [id number] 06:18:00* Test Item Value Reference Range Interpretation [...] PLATELET MORPHOLOGY (test code = PLTMORPH) URINALYSIS [id number] 02:01:00* Test Item Value Reference Range Interpretation [...] BE COLLECTED BY NURSEDRUGS OF ABUSE SCREEN [id number] 02:01:00* Test Item Value Reference Range Interpretation [...] Source? VoidedSAMPLE TO BE COLLECTED BY NURSEURINALYSIS [id number] 01:45:00* Test Item Value Reference Range Interpretation [...] BE COLLECTED BY NURSEDRUGS OF ABUSE SCREEN [id number] 01:45:00* Test Item Value Reference Range Interpretation [...] 2143Urine Source? VoidedSAMPLE TO BE COLLECTED BY [id number] 23:31:00* Test Item Value Reference Range Interpretation Comments GLUBED (test code = GLUBED) 223 mg/dL 74-106 H Performed by certified derrick operator at [facility] [id number] 18:09:00* Test Item Value Reference Range Interpretation Comments GLUBED (test code = GLUBED) 201 mg/dL 74-106 H Performed by certified derrick operator at [facility] [id number] 11:27:00* Test Item Value Reference Range Interpretation Comments GLUBED (test code = GLUBED) 291 mg/dL 74-106 H Performed by certified derrick operator at [facility] [id number] 08:25:00* Test Item Value Reference Range Interpretation Comments GLUBED (test code = GLUBED) 288 mg/dL 74-106 H Performed by certified derrick operator at [facility] - XR ABDOMEN AP 1 [id number] 08:01:00 FAX: Bobby Self MD [place]: B St: ADM FAX: Riley Zavala DO [phone] Name: BREE LINDSAY [facility] : 1975 Age/S: 43/M [address] Unit #: [id number] Loc: V.[address] [place] [address] Phys: Bobby Self MD Acct: [id number] Dis Date: Status: ADM IN PHONE #: [phone] Exam Date: 02/10/2019804 FAX #: [phone] Reason: abdominal pain nausea and vomiting EXAMS: CPT CODE: [id number] XR ABDOMEN AP 1 V 11814 HISTORY: abdominal pain nausea and vomiting TECHNIQUE: [...] LATA(R) Trnscrd Date/Time/By: 02/10/2019 (0801) : By: [email or web address] [...] into account the patients history. BASIC METABOLIC [id number] 00:47:00* Test Item Value Reference Range Interpretation [...] CA) 9.1 mg/dL 8.5-10.1 N HEPATIC FUNCTION [id number] 00:47:00* Test Item Value Reference Range Interpretation [...] reference range due to change in reagent. [id number] 00:47:00* Test Item Value Reference Range Interpretation Comments LIPASE (test code = LIP) < 10 U/L 73.0-393.0 L CBC W/O [id number] 00:11:00* Test Item Value Reference Range Interpretation [...] code = MPV) 9.7 fL 6.7-11.0 N [id number] 07:24:00* Test Item Value Reference Range Interpretation Comments GLUBED (test code = GLUBED) 269 mg/dL 74-106 H Performed by certified derrick operator at [facility] [id number] 20:19:00* Test Item Value Reference Range Interpretation Comments GLUBED (test code = GLUBED) 199 mg/dL 74-106 H Performed by certified derrick operator at [facility] [id number] 16:56:00* Test Item Value Reference Range Interpretation Comments GLUBED (test code = GLUBED) 153 mg/dL 74-106 H Performed by certified derrick operator at [facility] [id number] 11:42:00* Test Item Value Reference Range Interpretation Comments GLUBED (test code = GLUBED) 231 mg/dL 74-106 H Performed by certified derrick operator at [facility] [id number] 08:17:00* Test Item Value Reference Range Interpretation Comments GLUBED (test code = GLUBED) 160 mg/dL 74-106 H Performed by certified derrick operator at [facility] CBC W/AUTO [id number] 06:43:00* Test Item Value Reference Range Interpretation [...] NRBC#) 0.00 K/mm3 0.0-0.1 N BASIC METABOLIC [id number] 06:43:00* Test Item Value Reference Range Interpretation [...] CA) 8.8 mg/dL 8.5-10.1 N BASIC METABOLIC [id number] 06:26:00* Test Item Value Reference Range Interpretation [...] (test code = CA) mg/dL 8.5-10.1 URINALYSIS [id number] 23:07:00* Test Item Value Reference Range Interpretation [...] Urine Source? Clean CatchDRUGS OF ABUSE SCREEN [id number] 23:07:00* Test Item Value Reference Range Interpretation [...] NEGATIVE <300 ng/mL Urine Source? Clean CatchURINALYSIS [id number] 22:44:00* Test Item Value Reference Range Interpretation [...] Urine Source? Clean CatchDRUGS OF ABUSE SCREEN [id number] 22:44:00* Test Item Value Reference Range Interpretation [...] <300 ng/mL Urine Source? Clean CatchBASIC METABOLIC [id number] 18:12:00* Test Item Value Reference Range Interpretation [...] CA) 10.0 mg/dL 8.5-10.1 N HEPATIC FUNCTION [id number] 18:12:00* Test Item Value Reference Range Interpretation [...] reference range due to change in reagent. [id number] 18:12:00* Test Item Value Reference Range Interpretation Comments LIPASE (test code = LIP) < 10 U/L 73.0-393.0 L BASIC METABOLIC [id number] 18:04:00* Test Item Value Reference Range Interpretation [...] code = CA) mg/dL 8.5-10.1 HEPATIC FUNCTION [id number] 18:04:00* Test Item Value Reference Range Interpretation [...] TOTAL (test code = ALKP) IUnit/L 45-117 [id number] 18:04:00* Test Item Value Reference Range Interpretation Comments LIPASE (test code = LIP) U/L 73.0-393.0 CBC W/O [id number] 18:00:00* Test Item Value Reference Range Interpretation [...] code = MPV) 10.1 fL 6.7-11.0 N [id number] 17:11:00* Test Item Value Reference Range Interpretation Comments GLUBED (test code = GLUBED) 108 mg/dL 74-106 H Performed by certified derrick operator at [facility] [id number] 14:49:00 RUN DATE: 12/21/18 [place] [facility] PAGE 1 RUN TIME: 1449 Specimen Inqui ry RUN USER: INTERFACE PATIENT: BREE LINDSAY ACCT #: V [id number] LOC: V.3SOBS U #: [id number] AGE/SX: 43/M ROOM: [facility] RE12/16/18REG DR: Olegario Diaz MD : 75 BED: A DIS: 12/19/18 STATUS: DIS IN TLOC: SPEC #: [id number] RECD: 12/20/18 STATUS: SHAHRAM LUEVANO #: [id number] HUY: 12/18/18- SUBM DR: Sav Coffey MD ENTERED: 12/20/18 SP TYPE: GALLBLADD OTHR DR: Levi Natarajan i, MD, Shao-Chun DOORDERED: LINDA COPIES TO: Levi Lakhani MD [address] [place], [place] [id number] Sav Coffey MD [address] [place] [address] [place] [address] [place] [address] MARKERS: ABNORMAL TISSUE, GALLBL ADDER PROCEDURES: LINDA (12/21/18-115) TISSUES: GALLBLADDER, NOS CLINICAL HISTORY COLLECTION DATE: 12/18/18 CHOLECYSTITIS FIN AL DIAGNOSIS Gallbladder, cholecystectomy: PATCHY MILD CHRONIC ACALCUL OUS CHOLECYSTITIS NEGATIVE FOR MALIGNANCY RRB/sm A 32020 CONTINUED ON NEXT PAGE RUN DATE : 12/21/18 [facility] PAGE 2 RUN TIME: 1449 Specimen Inquiry RUN USER: INTERFACE SPEC #: [id number] PATIENT: BREE LINDSAY #V [id number] (Continued) MACROSCOPIC The specimen is r eceived [...] thickness. No foc al lesions are identified. Plastic Tile Layer tissue is submitted in a single violeta sette. GROSS PERFORMED AT [facility] [address] [place] [address] (p)[phone] MICROSCOPIC All of the stains, including any controls performed, st ain appropriately. MICROSCOPIC PERFORMED AT [facility] [address] [place] [address] (Q) PERFORMING SITE Diagnosis performed at: [facility] [address] [place] [address] Signed ORLIN E ON FILE Dino Patton MD 12/21/18 0788 END OF REPORT [id number] 11:45:00* Test Item Value Reference Range Interpretation Comments GLUBED (test code = GLUBED) 238 mg/dL 74-106 H Performed by certified derrick operator at [facility] BASIC METABOLIC [id number] 08:28:00* Test Item Value Reference Range Interpretation [...] code = CA) 8.2 mg/dL 8.5-10.1 L [id number] 08:28:00* Test Item Value Reference Range Interpretation Comments MAGNESIUM (test code = MAG) 1.5 mg/dL 1.8-2.4 L BASIC METABOLIC [id number] 08:21:00* Test Item Value Reference Range Interpretation [...] CALCIUM (test code = CA) mg/dL 8.5-10.1 [id number] 08:21:00* Test Item Value Reference Range Interpretation Comments MAGNESIUM (test code = MAG) mg/dL 1.8-2.4 CBC W/AUTO [id number] 07:56:00* Test Item Value Reference Range Interpretation [...] DIFF REQUIRED (test code = MDIFF) NO [id number] 07:38:00* Test Item Value Reference Range Interpretation Comments GLUBED (test code = GLUBED) 277 mg/dL 74-106 H Performed by certified derrick operator at [facility] [id number] 20:34:00* Test Item Value Reference Range Interpretation Comments GLUBED (test code = GLUBED) 165 mg/dL 74-106 H Performed by certified derrick operator at [facility] [id number] 19:18:00* Test Item Value Reference Range Interpretation Comments GLUBED (test code = GLUBED) 203 mg/dL 74-106 H Performed by certified derrick operator at [facility] BASIC METABOLIC [id number] 11:47:00* Test Item Value Reference Range Interpretation [...] mg/dL 8.5-10.1 L PT IN SURGERY RN [id number] V.LAB.[facility] 12/18/18 [id number] 11:42:00* Test Item Value Reference Range Interpretation Comments GLUBED (test code = GLUBED) 360 mg/dL 74-106 H Performed by certified derrick operator at [facility] BASIC METABOLIC [id number] 11:41:00* Test Item Value Reference Range Interpretation [...] CA) mg/dL 8.5-10.1 PT IN SURGERY RN [id number] V.LAB.[facility] 12/18/18 0926CBC W/AUTO [id number] 11:11:00* Test Item Value Reference Range Interpretation [...] = MDIFF) NO PT IN SURGERY RN [id number] V.LAB.KP2 12/18/18 5193GDNBJN2702-87-84 03:55:00* Test Item Value Reference Range Interpretation Comments GLUBED (test code = GLUBED) 269 mg/dL 74-106 H Performed by certified derrick operator at [facility] [id number] 23:58:00* Test Item Value Reference Range Interpretation Comments GLUBED (test code = GLUBED) 233 mg/dL 74-106 H Performed by certified derrick operator at [facility] [id number] 09:16:00* Test Item Value Reference Range Interpretation Comments GLUBED (test code = GLUBED) 179 mg/dL 74-106 H Performed by certified derrick operator at [facility] BASIC METABOLIC [id number] 06:40:00* Test Item Value Reference Range Interpretation Comments SODIUM (test code = NA) 141 mmol/L 136-145 N POTASSIUM (test code = K) 2.8 mmol/L 3.5-5.1 Re sults called to UAE4893 by V.LAB.[facility] 12/17/18 0639Critical results verified and [...] code = CA) 8.3 mg/dL 8.5-10.1 L [id number] 06:40:00* Test Item Value Reference Range Interpretation Comments MAGNESIUM (test code = MAG) 1.6 mg/dL 1.8-2.4 L B-TYPE NATRIURETIC [id number] 06:34:00* Test Item Value Reference Range Interpretation Comments B-TYPE NATRIURETIC PEPTIDE (test code = BNP) 128.51 pgram/mL 0-100 H CBC W/AUTO [id number] 05:33:00* Test Item Value Reference Range Interpretation [...] code = NRBC#) 0.00 K/mm3 0.0-0.1 N [id number] 02:55:00* Test Item Value Reference Range Interpretation Comments GLUBED (test code = GLUBED) 102 mg/dL 74-106 N Performed by certified derrick operator at [facility] [id number] 21:18:00* Test Item Value Reference Range Interpretation Comments GLUBED (test code = GLUBED) 224 mg/dL 74-106 H Performed by certified derrick operator at [facility] [id number] 16:43:00* Test Item Value Reference Range Interpretation Comments GLUBED (test code = GLUBED) 158 mg/dL 74-106 H Performed by certified derrick operator at [facility] DRUGS OF ABUSE SCREEN [id number] 14:45:00* Test Item Value Reference Range Interpretation [...] NEGATIVE <300 ng/mL DRUGS OF ABUSE SCREEN [id number] 14:24:00* Test Item Value Reference Range Interpretation [...] ng/mL - HEPA IMAG INCL GB W [id number] 14:14:00 FAX: Leia Kendrick MSN [place]: B St: [facility] FAX: Bobby Self MD FAX: Riley Zavala DO [phone] Name: BREE LINDSAY [facility] : 1975 Age/S: 43/M [address] Unit #: [id number] Loc: VDon3070 [place] [address] Phys: Leia Kendrick MSN Acct: [id number] Dis Date: Status: ADM IN ONE #: [phone] Exam Date: 12/16/2018 1412 FAX #: [phone] Reason: recurrent n/v EXAMS: CPT CODE: [id number] HE PA IMAG INCL GB W PHA [id number] HISTORY: recur rent n/v EXAM: NUCLEAR MEDICINE [...] ASHRAF Trnscrd Date/Time/By: 12/16/2018 (1414) : By: [email or web address] Orig Print D/T: S: 12/16/2018 (6001) PAGE 1 Signed Report [id number] 11:12:00* Test Item Value Reference Range Interpretation Comments GLUBED (test code = GLUBED) 133 mg/dL 74-106 H Performed by certified derrick operator at [facility] - US ABDOMEN [id number] 10:25:00 Name: BREE LINDSAY [facility] : 1975 Age/S: 43 / M [address] Unit #: [id number] Loc: [place] [address] Phys: Leia Kendrick MSN Acct: [id number] Dis Date: Status: ADM IN PHONE #: [phone] Exam Date: 12/16/2018939 FAX #: [phone] Reason: n/v EXAMS: CPT CODE: [id number] US ABDOMEN COMPLETE 22265 REASON FOR EXAM: n/v EXAM ORDER DATE: [...] 1 Signed Report (CONTINUED) Name: BREE LINDSAY [facility] : 1975 Age/S: 43 / M [address] [facility] Unit #: [id number] Loc: [place] [address] Phys: AroldoLeia Estrada MSN Acct: [id number] Dis Date: Status: ADM IN PHONE #: [phone] Exam Date: 12/16 FAX #: [phone] Reason: n/v EXAMS: CPT CODE: [id number] US ABDOMEN COMPLETE 76 700 <Continued> Left [...] Riley Beckman DO Technologist: NOEMY OLVERA RT(R),RDMS Trntnb Date/Time: 12/16/2018 (1025) [email or web address] Orig Print D/T: S: 12/16/2018 (1239) Probe: PAGE 2 Signed Report [id number] 07:04:00* Test Item Value Reference Range Interpretation Comments GLUBED (test code = GLUBED) 177 mg/dL 74-106 H Performed by certified derrick operator at [facility] URINALYSIS [id number] 00:25:00* Test Item Value Reference Range Interpretation [...] FEW A Urine Source? Clean CatchBASIC METABOLIC [id number] 00:22:00* Test Item Value Reference Range Interpretation [...] CA) 8.8 mg/dL 8.5-10.1 N HEPATIC FUNCTION [id number] 00:22:00* Test Item Value Reference Range Interpretation [...] reference range due to change in reagent. [id number] 00:22:00* Test Item Value Reference Range Interpretation Comments LIPASE (test code = LIP) < 10 U/L 73.0-393.0 L [id number] 00:22:00* Test Item Value Reference Range Interpretation Comments TROPONIN-I (test code = TROPI) <0.015 ng/mL 0-0.045 N BASIC METABOLIC [id number] 00:12:00* Test Item Value Reference Range Interpretation [...] code = CA) mg/dL 8.5-10.1 HEPATIC FUNCTION [id number] 00:12:00* Test Item Value Reference Range Interpretation [...] TOTAL (test code = ALKP) IUnit/L 45-117 [id number] 00:12:00* Test Item Value Reference Range Interpretation Comments LIPASE (test code = LIP) U/L 73.0-393.0 [id number] 00:12:00* Test Item Value Reference Range Interpretation Comments TROPONIN-I (test code = TROPI) ng/mL 0-0.045 CBC W/O [id number] 00:06:00* Test Item Value Reference Range Interpretation [...] MPV) 10.2 fL 6.7-11.0 N BASIC METABOLIC [id number] 08:09:00* Test Item Value Reference Range Interpretation [...] CA) 9.0 mg/dL 8.5-10.1 N HEPATIC FUNCTION [id number] 08:09:00* Test Item Value Reference Range Interpretation [...] reference range due to change in reagent. [id number] 08:09:00* Test Item Value Reference Range Interpretation Comments LIPASE (test code = LIP) < 10 U/L 73.0-393.0 L [id number] 08:09:00* Test Item Value Reference Range Interpretation Comments TROPONIN-I (test code = TROPI) <0.015 ng/mL 0-0.045 N BASIC METABOLIC [id number] 07:52:00* Test Item Value Reference Range Interpretation [...] code = CA) mg/dL 8.5-10.1 HEPATIC FUNCTION [id number] 07:52:00* Test Item Value Reference Range Interpretation [...] TOTAL (test code = ALKP) IUnit/L 45-117 [id number] 07:52:00* Test Item Value Reference Range Interpretation Comments LIPASE (test code = LIP) U/L 73.0-393.0 [id number] 07:52:00* Test Item Value Reference Range Interpretation Comments TROPONIN-I (test code = TROPI) ng/mL 0-0.045 CBC W/O [id number] 07:40:00* Test Item Value Reference Range Interpretation [...] = MPV) 10.5 fL 6.7-11.0 N POCT-GLUCOSE [id number] 17:19:00* Test Item Value Reference Range Interpretation Comments POC-GLUCOSE METER (BEAKER) (test code = 1538) 266 mg/dL 70-110 H TESTED AT [address] [address] POCT-GLUCOSE [id number] 12:17:00* Test Item Value Reference Range Interpretation Comments POC-GLUCOSE METER (BEAKER) (test code = 1538) 240 mg/dL 70-110 H TESTED AT [address] [address] POCT-GLUCOSE [id number] 08:12:00* Test Item Value Reference Range Interpretation Comments POC-GLUCOSE METER (BEAKER) (test code = 1538) 184 mg/dL 70-110 H TESTED AT [address] [address] [id number] 06:18:00* Test Item Value Reference Range Interpretation Comments PHOSPHORUS (BEAKER) (test code = 604) 2.2 mg/dL 2.3-4.7 L [id number] 06:18:00* Test Item Value Reference Range Interpretation Comments MAGNESIUM (BEAKER) (test code = 627) 1.6 mg/dL 1.6-2.6 BASIC METABOLIC [id number] 06:18:00* Test Item Value Reference Range Interpretation [...] DIALYSIS PATIENTS. CBC W/PLT COUNT & AUTO [id number] 06:16:00* Test Item Value Reference Range Interpretation [...] code = 2801) 0 % 0-1 POCT-GLUCOSE [id number] 21:15:00* Test Item Value Reference Range Interpretation Comments POC-GLUCOSE METER (BEAKER) (test code = 1538) 307 mg/dL 70-110 H Notified RN or MD Patient refused repeat test/TESTED AT [address] [address] HEMOGLOBIN [id number] 19:48:00* Test Item Value Reference Range Interpretation Comments HEMOGLOBIN A1C (BEAKER) (test code = 368) 8.4 % 4.3-6.1 H LIPID [id number] 16:17:00* Test Item Value Reference Range Interpretation [...] High 160-189 Very High >=190 BASIC METABOLIC [id number] 16:17:00* Test Item Value Reference Range Interpretation [...] NOT APPLICABLE FOR DIALYSIS PATIENTS. HEPATIC FUNCTION [id number] 16:17:00* Test Item Value Reference Range Interpretation [...] U/L 6-55 CBC W/PLT COUNT & AUTO [id number] 16:07:00* Test Item Value Reference Range Interpretation [...] code = 2801) 0 % 0-1 POCT-GLUCOSE [id number] 16:01:00* Test Item Value Reference Range Interpretation Comments POC-GLUCOSE METER (BEAKER) (test code = 1538) 265 mg/dL 70-110 H TESTED AT [facility] [address] [facility] [address] POCT-GLUCOSE [id number] 12:34:00* Test Item Value Reference Range Interpretation Comments POC-GLUCOSE METER (BEAKER) (test code = 1538) 271 mg/dL 70-110 H TESTED AT [facility] [address] [facility] [address] Magnesium [id number] 18:51:00* Test Item Value Reference Range Interpretation Comments Magnesium Level (test code = 49364-3) 1.8 1.3-2.1 [facility] 18:51:00* Test Item Value Reference Range Interpretation Comments Lipase (test code = 3040-3) < 4 8-78 L [facility] HospitalMagn[facility] Eoahy4319-10-17 18:51:00* Test Item Value Reference Range Interpretation Comments Magnesium Level (test code = 59228-2) 1.8 1.3-2.1 [facility]2019-09-15 18:51:00* Test Item Value Reference Range Interpretation Comments Lipase (test code = 3040-3) < 4 8-78 L [facility] Hospital[facility] Ayvvk3394-47-98 18:51:00* Test Item Value Reference Range Interpretation Comments Magnesium Level (test code = 50357-7) 1.8 1.3-2.1 [facility]2019-09-15 18:51:00* Test Item Value Reference Range Interpretation Comments Lipase (test code = 3040-3) < 4 8-78 L [facility]2019-09-15 18:51:00* Test Item Value Reference Range Interpretation Comments Lipase (test code = 3040-3) < 4 8-78 L [facility] Zzxwgbc4422-38-66 20:52:00* Test Item Value Reference Range Interpretation Comments Blood Culture (test code = 51795359) NO GROWTH AFTER 5 DAYS, FINAL REPORT [facility]2019-08-31 20:52:00* Test Item Value Reference Range Interpretation Comments Blood Culture (test code = 91023446) NO GROWTH AFTER 5 DAYS, FINAL REPORT [facility] Pcvjomg2541-64-01 20:52:00* Test Item Value Reference Range Interpretation Comments Blood Culture (test code = 69452919) NO GROWTH AFTER 5 DAYS, FINAL REPORT [facility] Hospital[facility] Fxaasyl2672-33-02 20:52:00* Test Item Value Reference Range Interpretation Comments Blood Culture (test code = 74646712) NO GROWTH AFTER 5 DAYS, FINAL REPORT [facility] Lrdakok7164-12-78 15:19:00* Test Item Value Reference Range Interpretation Comments Bedside Glucose (test code = 11471-9) 261 70-120 H Meter ID: [id number] [facility] Glucose 2018-11-25 15:19:00* Test Item Value Reference Range Interpretation Comments Bedside Glucose (test code = 18930-1) 261 70-120 H Meter ID: [id number] Glucose 2018-11-25 15:19:00* Test Item Value Reference Range Interpretation Comments Bedside Glucose (test code = 79050-5) 261 70-120 H Meter ID: [id number] Glucose 2018-11-25 15:19:00* Test Item Value Reference Range Interpretation Comments Bedside Glucose (test code = 87298-7) 261 70-120 H Meter ID: [id number] Health System [facility] HospitalWhite Blood Count 2018-11-25 06:12:00* Test Item Value Reference Range Interpretation Comments White Blood Count (test code = 6690-2) 10.09 4.8-10.8 [facility] HospitalRed Blood Lrhyp0742-74-42 06:12:00* Test Item Value Reference Range Interpretation Comments Red Blood Count (test code = 789-8) 3.20 4.3-5.7 L [facility] HospitalHemoglobin2019-08-29 06:12:00* Test Item Value Reference Range Interpretation Comments Hemoglobin (test code = 00642-4) 9.0 14.0-18.0 L [facility] HospitalHematocrit2019-08-29 06:12:00* Test Item Value Reference Range Interpretation Comments Hematocrit (test code = 4544-3) 28.1 38.2-49.6 L [facility] HospitalMean Corpuscular Fruarx0393-92-86 06:12:00* Test Item Value Reference Range Interpretation Comments Mean Corpuscular Volume (test code = 787-2) 87.8 81-99 [facility] HospitalMean Corpuscular Shcypnbkwt2696-19-16 06:12:00* Test Item Value Reference Range Interpretation Comments Mean Corpuscular Hemoglobin (test code = 785-6) 28.1 28-32 [facility] HospitalMean Corpuscular Hemoglobin Concent 2018-11-25 06:12:00* Test Item Value Reference Range Interpretation Comments Mean Corpuscular Hemoglobin Concent (test code = 786-4) 32.0 31-35 [facility] HospitalRed Cell Distribution [id number] 06:12:00* Test Item Value Reference Range Interpretation Comments Red Cell Distribution Width (test code = 42985-7) 13.7 11.7 -14.4 [facility] HospitalPlatelet Fjjmt6436-60-04 06:12:00* Test Item Value Reference Range Interpretation Comments Platelet Count (test code = 777-3) 185 140-360 [facility] HospitalNeutrophils (%) (Auto)2018-11-25 06:12:00 * Test Item Value Reference Range Interpretation Comments Neutrophils (%) (Auto) (test code = 91990-1) 60.5 38.7-80.0 [facility] HospitalLymphocytes (%) (Auto)2018-11-25 06:12:00 * Test Item Value Reference Range Interpretation Comments Lymphocytes (%) (Auto) (test code = 736-9) 24.7 18.0-39.1 [facility] HospitalMonocytes (%) (Auto)2018-11-25 06:12:00* Test Item Value Reference Range Interpretation Comments Monocytes (%) (Auto) (test code = 5905-5) 12.2 4.4-11.3 H [facility] HospitalEosinophils (%) (Auto)2018-11-25 06:12:00 * Test Item Value Reference Range Interpretation Comments Eosinophils (%) (Auto) (test code = 713-8) 2.0 0.0-6.0 [facility] HospitalBasophils (%) (Auto)2018-11-25 06:12:00* Test Item Value Reference Range Interpretation Comments Basophils (%) (Auto) (test code = 706-2) 0.5 0.0-1.0 [facility] HospitalIM GRANULOCYTES %2018-11-25 06:12:00* Test Item Value Reference Range Interpretation Comments IM GRANULOCYTES % (test code = IM GRANULOCYTES %) 0.1 0.0- 1.0 [facility] HospitalNeutrophils # (Auto)2018-11-25 06:12:00* Test Item Value Reference Range Interpretation Comments Neutrophils # (Auto) (test code = 751-8) 6.1 2.1-6.9 [facility] HospitalLymphocytes # (Auto)2018-11-25 06:12:00* Test Item Value Reference Range Interpretation Comments Lymphocytes # (Auto) (test code = 01920-5) 2.5 1.0-3.2 [facility] HospitalMonocytes # (Auto)2018-11-25 06:12:00* Test Item Value Reference Range Interpretation Comments Monocytes # (Auto) (test code = 742-7) 1.2 0.2-0.8 H [facility] HospitalEosinophils # (Auto)2018-11-25 06:12:00* Test Item Value Reference Range Interpretation Comments Eosinophils # (Auto) (test code = 711-2) 0.2 0.0-0.4 [facility] HospitalBasophils # (Auto)2018-11-25 06:12:00* Test Item Value Reference Range Interpretation Comments Basophils # (Auto) (test code = 704-7) 0.1 0.0-0.1 [facility] HospitalAbsolute Immature Granulocyte (auto 2018-11-25 06:12:00* Test Item Value Reference Range Interpretation Comments Absolute Immature Granulocyte (auto (zeenat t code = Absolute Immature Granulocyte (auto) 0.01 0-0.1 [facility] HospitalWhite Blood Unmdo5473-10-17 06:12:00* Test Item Value Reference Range Interpretation Comments White Blood Count (test code = 6690-2) 10.09 4.8-10.8 [facility] HospitalRed Blood Wyvbd2257-05-72 06:12:00* Test Item Value Reference Range Interpretation Comments Red Blood Count (test code = 789-8) 3.20 4.3-5.7 L [facility] HospitalHemoglobin2019-08-29 06:12:00* Test Item Value Reference Range Interpretation Comments Hemoglobin (test code = 34805-8) 9.0 14.0-18.0 L [facility] HospitalHematocrit2019-08-29 06:12:00* Test Item Value Reference Range Interpretation Comments Hematocrit (test code = 4544-3) 28.1 38.2-49.6 L [facility] HospitalMean Corpuscular Uxvtkh1570-11-97 06:12:00* Test Item Value Reference Range Interpretation Comments Mean Corpuscular Volume (test code = 787-2) 87.8 81-99 [facility] HospitalMean Corpuscular Vvtwiumtoz9082-82-08 06:12:00* Test Item Value Reference Range Interpretation Comments Mean Corpuscular Hemoglobin (test code = 785-6) 28.1 28-32 [facility] HospitalMean Corpuscular Hemoglobin Concent 2018-11-25 06:12:00* Test Item Value Reference Range Interpretation Comments Mean Corpuscular Hemoglobin Concent (test code = 786-4) 32.0 31-35 [facility] HospitalRed Cell Distribution Rwvem5955-58-81 06:12:00* Test Item Value Reference Range Interpretation Comments Red Cell Distribution Width (test code = 86936-3) 13.7 11.7 -14.4 [facility] HospitalPlatelet Pxzab2154-26-69 06:12:00* Test Item Value Reference Range Interpretation Comments Platelet Count (test code = 777-3) 185 140-360 [facility] HospitalNeutrophils (%) (Auto)2018-11-25 06:12:00 * Test Item Value Reference Range Interpretation Comments Neutrophils (%) (Auto) (test code = 54000-7) 60.5 38.7-80.0 [facility] HospitalLymphocytes (%) (Auto)2018-11-25 06:12:00 * Test Item Value Reference Range Interpretation Comments Lymphocytes (%) (Auto) (test code = 736-9) 24.7 18.0-39.1 [facility] HospitalMonocytes (%) (Auto)2018-11-25 06:12:00* Test Item Value Reference Range Interpretation Comments Monocytes (%) (Auto) (test code = 5905-5) 12.2 4.4-11.3 H [facility] HospitalEosinophils (%) (Auto)2018-11-25 06:12:00 * Test Item Value Reference Range Interpretation Comments Eosinophils (%) (Auto) (test code = 713-8) 2.0 0.0-6.0 [facility] HospitalBasophils (%) (Auto)2018-11-25 06:12:00* Test Item Value Reference Range Interpretation Comments Basophils (%) (Auto) (test code = 706-2) 0.5 0.0-1.0 [facility] HospitalIM GRANULOCYTES %2018-11-25 06:12:00* Test Item Value Reference Range Interpretation Comments IM GRANULOCYTES % (test code = IM GRANULOCYTES %) 0.1 0.0- 1.0 [facility] HospitalNeutrophils # (Auto)2018-11-25 06:12:00* Test Item Value Reference Range Interpretation Comments Neutrophils # (Auto) (test code = 751-8) 6.1 2.1-6.9 [facility] HospitalLymphocytes # (Auto)2018-11-25 06:12:00* Test Item Value Reference Range Interpretation Comments Lymphocytes # (Auto) (test code = 01865-8) 2.5 1.0-3.2 [facility] HospitalMonocytes # (Auto)2018-11-25 06:12:00* Test Item Value Reference Range Interpretation Comments Monocytes # (Auto) (test code = 742-7) 1.2 0.2-0.8 H [facility] HospitalEosinophils # (Auto)2018-11-25 06:12:00* Test Item Value Reference Range Interpretation Comments Eosinophils # (Auto) (test code = 711-2) 0.2 0.0-0.4 [facility] HospitalBasophils # (Auto)2018-11-25 06:12:00* Test Item Value Reference Range Interpretation Comments Basophils # (Auto) (test code = 704-7) 0.1 0.0-0.1 [facility] HospitalAbsolute Immature Granulocyte (auto 2018-11-25 06:12:00* Test Item Value Reference Range Interpretation Comments Absolute Immature Granulocyte (auto (zeenat t code = Absolute Immature Granulocyte (auto) 0.01 0-0.1 [facility] HospitalWhite Blood Zewwt7640-34-72 06:12:00* Test Item Value Reference Range Interpretation Comments White Blood Count (test code = 6690-2) 10.09 4.8-10.8 [facility] Nqibf0816-94-03 06:12:00* Test Item Value Reference Range Interpretation Comments Red Blood Count (test code = 789-8) 3.20 4.3-5.7 L [facility] HospitalHemoglobin2019-08-29 06:12:00* Test Item Value Reference Range Interpretation Comments Hemoglobin (test code = 23652-4) 9.0 14.0-18.0 L [facility] HospitalHematocrit2019-08-29 06:12:00* Test Item Value Reference Range Interpretation Comments Hematocrit (test code = 4544-3) 28.1 38.2-49.6 L [facility] HospitalMean Corpuscular Bkfqvo6074-38-11 06:12:00* Test Item Value Reference Range Interpretation Comments Mean Corpuscular Volume (test code = 787-2) 87.8 81-99 [facility] HospitalMean Corpuscular Uddymadfgl6000-70-28 06:12:00* Test Item Value Reference Range Interpretation Comments Mean Corpuscular Hemoglobin (test code = 785-6) 28.1 28-32 [facility] HospitalMean Corpuscular Hemoglobin Concent 2018-11-25 06:12:00* Test Item Value Reference Range Interpretation Comments Mean Corpuscular Hemoglobin Concent (test code = 786-4) 32.0 31-35 [facility] HospitalRed Cell Distribution Qvajk8214-89-32 06:12:00* Test Item Value Reference Range Interpretation Comments Red Cell Distribution Width (test code = 71226-0) 13.7 11.7 -14.4 [facility] HospitalPlatelet Cmhgb1398-79-22 06:12:00* Test Item Value Reference Range Interpretation Comments Platelet Count (test code = 777-3) 185 140-360 [facility] HospitalNeutrophils (%) (Auto)2018-11-25 06:12:00 * Test Item Value Reference Range Interpretation Comments Neutrophils (%) (Auto) (test code = 14758-0) 60.5 38.7-80.0 [facility] HospitalLymphocytes (%) (Auto)2018-11-25 06:12:00 * Test Item Value Reference Range Interpretation Comments Lymphocytes (%) (Auto) (test code = 736-9) 24.7 18.0-39.1 [facility] HospitalMonocytes (%) (Auto)2018-11-25 06:12:00* Test Item Value Reference Range Interpretation Comments Monocytes (%) (Auto) (test code = 5905-5) 12.2 4.4-11.3 H [facility] HospitalEosinophils (%) (Auto)2018-11-25 06:12:00 * Test Item Value Reference Range Interpretation Comments Eosinophils (%) (Auto) (test code = 713-8) 2.0 0.0-6.0 [facility] HospitalBasophils (%) (Auto)2018-11-25 06:12:00* Test Item Value Reference Range Interpretation Comments Basophils (%) (Auto) (test code = 706-2) 0.5 0.0-1.0 [facility] HospitalIM GRANULOCYTES %2018-11-25 06:12:00* Test Item Value Reference Range Interpretation Comments IM GRANULOCYTES % (test code = IM GRANULOCYTES %) 0.1 0.0- 1.0 [facility] HospitalNeutrophils # (Auto)2018-11-25 06:12:00* Test Item Value Reference Range Interpretation Comments Neutrophils # (Auto) (test code = 751-8) 6.1 2.1-6.9 [facility] HospitalLymphocytes # (Auto)2018-11-25 06:12:00* Test Item Value Reference Range Interpretation Comments Lymphocytes # (Auto) (test code = 74659-4) 2.5 1.0-3.2 [facility] HospitalMonocytes # (Auto)2018-11-25 06:12:00* Test Item Value Reference Range Interpretation Comments Monocytes # (Auto) (test code = 742-7) 1.2 0.2-0.8 H [facility] HospitalEosinophils # (Auto)2018-11-25 06:12:00* Test Item Value Reference Range Interpretation Comments Eosinophils # (Auto) (test code = 711-2) 0.2 0.0-0.4 [facility] HospitalBasophils # (Auto)2018-11-25 06:12:00* Test Item Value Reference Range Interpretation Comments Basophils # (Auto) (test code = 704-7) 0.1 0.0-0.1 [facility] HospitalAbsolute Immature Granulocyte (auto 2018-11-25 06:12:00* Test Item Value Reference Range Interpretation Comments Absolute Immature Granulocyte (auto (zeenat t code = Absolute Immature Granulocyte (auto) 0.01 0-0.1 [facility] HospitalWhite Blood Rqcgu8172-42-76 06:12:00* Test Item Value Reference Range Interpretation Comments White Blood Count (test code = 6690-2) 10.09 4.8-10.8 [facility] HospitalRed Blood Zqgci6489-56-47 06:12:00* Test Item Value Reference Range Interpretation Comments Red Blood Count (test code = 789-8) 3.20 4.3-5.7 L [facility] HospitalHemoglobin2019-08-29 06:12:00* Test Item Value Reference Range Interpretation Comments Hemoglobin (test code = 05981-1) 9.0 14.0-18.0 L [facility] HospitalHematocrit2019-08-29 06:12:00* Test Item Value Reference Range Interpretation Comments Hematocrit (test code = 4544-3) 28.1 38.2-49.6 L [facility] HospitalMean Corpuscular Ncejhq3064-87-91 06:12:00* Test Item Value Reference Range Interpretation Comments Mean Corpuscular Volume (test code = 787-2) 87.8 81-99 [facility] HospitalMean Corpuscular Xiuomuqcbf3310-16-33 06:12:00* Test Item Value Reference Range Interpretation Comments Mean Corpuscular Hemoglobin (test code = 785-6) 28.1 28-32 [facility] HospitalMean Corpuscular Hemoglobin Concent 2018-11-25 06:12:00* Test Item Value Reference Range Interpretation Comments Mean Corpuscular Hemoglobin Concent (test code = 786-4) 32.0 31-35 [facility] HospitalRed Cell Distribution Eubkj5505-81-53 06:12:00* Test Item Value Reference Range Interpretation Comments Red Cell Distribution Width (test code = 54581-2) 13.7 11.7 -14.4 [facility] HospitalPlatelet Aqxpg1235-99-24 06:12:00* Test Item Value Reference Range Interpretation Comments Platelet Count (test code = 777-3) 185 140-360 [facility] HospitalNeutrophils (%) (Auto)2018-11-25 06:12:00 * Test Item Value Reference Range Interpretation Comments Neutrophils (%) (Auto) (test code = 25879-5) 60.5 38.7-80.0 [facility] HospitalLymphocytes (%) (Auto)2018-11-25 06:12:00 * Test Item Value Reference Range Interpretation Comments Lymphocytes (%) (Auto) (test code = 736-9) 24.7 18.0-39.1 [facility] HospitalMonocytes (%) (Auto)2018-11-25 06:12:00* Test Item Value Reference Range Interpretation Comments Monocytes (%) (Auto) (test code = 5905-5) 12.2 4.4-11.3 H [facility] HospitalEosinophils (%) (Auto)2018-11-25 06:12:00 * Test Item Value Reference Range Interpretation Comments Eosinophils (%) (Auto) (test code = 713-8) 2.0 0.0-6.0 [facility] HospitalBasophils (%) (Auto)2018-11-25 06:12:00* Test Item Value Reference Range Interpretation Comments Basophils (%) (Auto) (test code = 706-2) 0.5 0.0-1.0 [facility] HospitalIM GRANULOCYTES %2018-11-25 06:12:00* Test Item Value Reference Range Interpretation Comments IM GRANULOCYTES % (test code = IM GRANULOCYTES %) 0.1 0.0- 1.0 [facility] HospitalNeutrophils # (Auto)2018-11-25 06:12:00* Test Item Value Reference Range Interpretation Comments Neutrophils # (Auto) (test code = 751-8) 6.1 2.1-6.9 [facility] HospitalLymphocytes # (Auto)2018-11-25 06:12:00* Test Item Value Reference Range Interpretation Comments Lymphocytes # (Auto) (test code = 22218-7) 2.5 1.0-3.2 [facility] HospitalMonocytes # (Auto)2018-11-25 06:12:00* Test Item Value Reference Range Interpretation Comments Monocytes # (Auto) (test code = 742-7) 1.2 0.2-0.8 H [facility] HospitalEosinophils # (Auto)2018-11-25 06:12:00* Test Item Value Reference Range Interpretation Comments Eosinophils # (Auto) (test code = 711-2) 0.2 0.0-0.4 [facility] HospitalBasophils # (Auto)2018-11-25 06:12:00* Test Item Value Reference Range Interpretation Comments Basophils # (Auto) (test code = 704-7) 0.1 0.0-0.1 [facility] HospitalAbsolute Immature Granulocyte (auto 2018-11-25 06:12:00* Test Item Value Reference Range Interpretation Comments Absolute Immature Granulocyte (auto (zeenat t code = Absolute Immature Granulocyte (auto) 0.01 0-0.1 [facility] Ipigq3489-18-59 05:57:00* Test Item Value Reference Range Interpretation Comments Sodium Level (test code = 2951-2) 138 136-145 [facility] HospitalPotassium Tfmxp6723-69-46 05:57:00* Test Item Value Reference Range Interpretation Comments Potassium Level (test code = 2823-3) 3.3 3.5-5.1 L [facility] HospitalChloride Zyesx1462-66-82 05:57:00* Test Item Value Reference Range Interpretation Comments Chloride Level (test code = 2075-0) 105 98-107 [facility] HospitalCarbon Dioxide Sylav2157-18-63 05:57:00* Test Item Value Reference Range Interpretation Comments Carbon Dioxide Level (test code = 2028-9) 27 22- [facility] HospitalAnion Way3112-06-88 05:57:00* Test Item Value Reference Range Interpretation Comments Anion Gap (test code = 08606-6) 9.3 8-16 [facility] HospitalBlood Urea Azuiqvnn3212-87-49 05:57:00* Test Item Value Reference Range Interpretation Comments Blood Urea Nitrogen (test code = 3094-0) 15 7-26 [facility] HospitalCreatinine2019-08-29 05:57:00* Test Item Value Reference Range Interpretation Comments Creatinine (test code = 2160-0) 1.17 0.72-1.25 [facility] HospitalBUN/Creatinine Ijytj3647-47-06 05:57:00* Test Item Value Reference Range Interpretation Comments BUN/Creatinine Ratio (test code = 3097-3) 13 6-25 [facility] HospitalEstimat Glomerular Filtration Rate 2018-11-25 05:57:00* Test Item Value Reference Range Interpretation Comments Estimat Glomerular Filtration Rate (test code = 146504662) > 60 >60 Ranges were taken from the National Kidney Disease Education Program and the [facility] Kidney Foundation literature.Reference ranges:60 or greater: Vgepmc37-96 ( for 3 consecutive months): Chronic kidney disease 15 or less: Kidney failureHarris Health System Ben [facility] HospitalGlucose Kdcsi7531-61-99 05:57:00* Test Item Value Reference Range Interpretation Comments Glucose Level (test code = RYK5282) 247 74-118 H [facility] HospitalCalcium Istog0302-05-00 05:57:00* Test Item Value Reference Range Interpretation Comments Calcium Level (test code = 20126-6) 8.4 8.4-10.2 [facility] Eqbht4136-87-78 05:57:00* Test Item Value Reference Range Interpretation Comments Sodium Level (test code = 2951-2) 138 136-145 [facility] HospitalPotassium Yhmvz9168-31-08 05:57:00* Test Item Value Reference Range Interpretation Comments Potassium Level (test code = 2823-3) 3.3 3.5-5.1 L [facility] HospitalChloride Ytssh9725-53-58 05:57:00* Test Item Value Reference Range Interpretation Comments Chloride Level (test code = 2075-0) 105 98-107 [facility] HospitalCarbon Dioxide Addhe3815-81-12 05:57:00* Test Item Value Reference Range Interpretation Comments Carbon Dioxide Level (test code = 2028-9) 27 22-29 [facility] HospitalAnion Qnf2412-57-62 05:57:00* Test Item Value Reference Range Interpretation Comments Anion Gap (test code = 73670-0) 9.3 8-16 [facility] HospitalBlood Urea Fuezdszy9279-20-00 05:57:00* Test Item Value Reference Range Interpretation Comments Blood Urea Nitrogen (test code = 3094-0) 15 7-26 [facility] HospitalCreatinine2019-08-29 05:57:00* Test Item Value Reference Range Interpretation Comments Creatinine (test code = 2160-0) 1.17 0.72-1.25 [facility] HospitalBUN/Creatinine Itycz3004-76-46 05:57:00* Test Item Value Reference Range Interpretation Comments BUN/Creatinine Ratio (test code = 3097-3) 13 09-21 [facility] HospitalEstimat Glomerular Filtration Rate 2018-11-25 05:57:00* Test Item Value Reference Range Interpretation Comments Estimat Glomerular Filtration Rate (test code = 660258329) > 60 >60 Ranges were taken from the National Kidney Disease Education Program and the [facility] Kidney Foundation literature.Reference ranges:60 or greater: Nvwdlv56-25 ( for 3 consecutive months): Chronic kidney disease 15 or less: Kidney failureHarris [facility] System [facility] HospitalGlucose Jkrac7437-30-65 05:57:00* Test Item Value Reference Range Interpretation Comments Glucose Level (test code = SKG2837) 247 74-118 H [facility] HospitalCalcium Ecbyb1475-62-51 05:57:00* Test Item Value Reference Range Interpretation Comments Calcium Level (test code = 22560-1) 8.4 8.4-10.2 [facility] Cuhqj4032-69-95 05:57:00* Test Item Value Reference Range Interpretation Comments Sodium Level (test code = 2951-2) 138 136-145 [facility] HospitalPotassium Fmfoy4512-24-11 05:57:00* Test Item Value Reference Range Interpretation Comments Potassium Level (test code = 2823-3) 3.3 3.5-5.1 L [facility] HospitalChloride Xewbx0346-48-36 05:57:00* Test Item Value Reference Range Interpretation Comments Chloride Level (test code = 2075-0) 105 98-107 [facility] HospitalCarbon Dioxide Zqnvd0756-03-24 05:57:00* Test Item Value Reference Range Interpretation Comments Carbon Dioxide Level (test code = 2028-9) 27 22-29 [facility] HospitalAnion Ues9718-34-17 05:57:00* Test Item Value Reference Range Interpretation Comments Anion Gap (test code = 59102-4) 9.3 8-16 [facility] HospitalBlood Urea Ifluebsl5136-00-18 05:57:00* Test Item Value Reference Range Interpretation Comments Blood Urea Nitrogen (test code = 3094-0) 15 7-26 [facility] HospitalCreatinine2019-08-29 05:57:00* Test Item Value Reference Range Interpretation Comments Creatinine (test code = 2160-0) 1.17 0.72-1.25 [facility] HospitalBUN/Creatinine Jbbuz2553-39-90 05:57:00* Test Item Value Reference Range Interpretation Comments BUN/Creatinine Ratio (test code = 3097-3) 13 09-21 [facility] HospitalEstimat Glomerular Filtration Rate 2018-11-25 05:57:00* Test Item Value Reference Range Interpretation Comments Estimat Glomerular Filtration Rate (test code = 851545545) > 60 >60 Ranges were taken from the National Kidney Disease Education Program and the [facility] Kidney Foundation literature.Reference ranges:60 or greater: Ocfljg09-56 ( for 3 consecutive months): Chronic kidney disease 15 or less: Kidney failureHarris Health System Ben [facility] HospitalGlucose Epxcq7164-52-26 05:57:00* Test Item Value Reference Range Interpretation Comments Glucose Level (test code = YCH0493) 247 74-118 H [facility] HospitalCalcium Btvbd8294-93-63 05:57:00* Test Item Value Reference Range Interpretation Comments Calcium Level (test code = 97248-7) 8.4 8.4-10.2 [facility] Lpfvc4571-93-57 05:57:00* Test Item Value Reference Range Interpretation Comments Sodium Level (test code = 2951-2) 138 136-145 [facility] HospitalPotassium Nwncf3009-13-66 05:57:00* Test Item Value Reference Range Interpretation Comments Potassium Level (test code = 2823-3) 3.3 3.5-5.1 L [facility] HospitalChloride Lmrbl6441-46-90 05:57:00* Test Item Value Reference Range Interpretation Comments Chloride Level (test code = 2075-0) 105 98-107 [facility] HospitalCarbon Dioxide Hckvx4290-56-62 05:57:00* Test Item Value Reference Range Interpretation Comments Carbon Dioxide Level (test code = 2028-9) 27 [facility] HospitalAnion Rss5305-08-81 05:57:00* Test Item Value Reference Range Interpretation Comments Anion Gap (test code = 42555-0) 9.3 8-16 [facility] HospitalBlood Urea Jizzytkt5357-62-43 05:57:00* Test Item Value Reference Range Interpretation Comments Blood Urea Nitrogen (test code = 3094-0) 15 7-26 [facility] HospitalCreatinine2019-08-29 05:57:00* Test Item Value Reference Range Interpretation Comments Creatinine (test code = 2160-0) 1.17 0.72-1.25 [facility] HospitalBUN/Creatinine Zcukj1420-88-14 05:57:00* Test Item Value Reference Range Interpretation Comments BUN/Creatinine Ratio (test code = 3097-3) 13 09-21 [facility] HospitalEstimat Glomerular Filtration Rate 2018-11-25 05:57:00* Test Item Value Reference Range Interpretation Comments Estimat Glomerular Filtration Rate (test code = 256856393) > 60 >60 Ranges were taken from the National Kidney Disease Education Program and the [facility] literature.Reference ranges:60 or greater: Gfhqbq30-56 ( for 3 consecutive months): Chronic kidney disease 15 or less: Kidney failureHarris Health System Ben Ta[facility] HospitalGlucose Dzibg9138-31-51 05:57:00* Test Item Value Reference Range Interpretation Comments Glucose Level (test code = JFT2646) 247 74-118 H [facility] HospitalCalcium Ftcej7181-15-58 05:57:00* Test Item Value Reference Range Interpretation Comments Calcium Level (test code = 31308-6) 8.4 8.4-10.2 [facility] HospitalBlood Qqapwsl3222-04-34 20:52:00* Test Item Value Reference Range Interpretation Comments Blood Culture (test code = 49697051) NO GROWTH AFTER 48 HOURS [facility] HospitalUrine DCP8985-10-19 10:48:00* Test Item Value Reference Range Interpretation Comments Urine WBC (test code = 5821-4) 6-10 0-5 H [facility] HospitalUrine AEH5914-71-82 10:48:00* Test Item Value Reference Range Interpretation Comments Urine RBC (test code = 98574-3) 0-5 0-5 [facility] HospitalUrine Yngxwlpe1335-08-11 10:48:00* Test Item Value Reference Range Interpretation Comments Urine Bacteria (test code = 66546-9) MODERATE NONE H [facility] HospitalUrine Epithelial Bewko1310-39-89 10:48:00 * Test Item Value Reference Range Interpretation Comments Urine Epithelial Cells (test code = 05327-6) FEW NONE [facility] HospitalUrine WMG3908-73-66 10:48:00* Test Item Value Reference Range Interpretation Comments Urine WBC (test code = 5821-4) 6-10 0-5 H [facility] HospitalUrine MXR1095-74-81 10:48:00* Test Item Value Reference Range Interpretation Comments Urine RBC (test code = 44569-3) 0-5 0-5 [facility] HospitalUrine Hpkjrxuk9410-50-75 10:48:00* Test Item Value Reference Range Interpretation Comments Urine Bacteria (test code = 02689-6) MODERATE NONE H [facility] HospitalUrine Epithelial Hannp6378-03-75 10:48:00 * Test Item Value Reference Range Interpretation Comments Urine Epithelial Cells (test code = 13645-0) FEW NONE [facility] HospitalUrine AGE3758-11-71 10:48:00* Test Item Value Reference Range Interpretation Comments Urine WBC (test code = 5821-4) 6-10 0-5 H [facility] RCU0564-48-63 10:48:00* Test Item Value Reference Range Interpretation Comments Urine RBC (test code = 43689-3) 0-5 0-5 [facility] HospitalUrine Agxohzru8425-56-24 10:48:00* Test Item Value Reference Range Interpretation Comments Urine Bacteria (test code = 07214-7) MODERATE NONE H [facility] HospitalUrine Epithelial Pmxqu7350-62-55 10:48:00 * Test Item Value Reference Range Interpretation Comments Urine Epithelial Cells (test code = 67866-8) FEW NONE [facility] HospitalUrine MTV7229-61-83 10:48:00* Test Item Value Reference Range Interpretation Comments Urine WBC (test code = 5821-4) 6-10 0-5 H [facility] HospitalUrine OEZ2948-46-50 10:48:00* Test Item Value Reference Range Interpretation Comments Urine RBC (test code = 93628-6) 0-5 0-5 [facility] HospitalUrine Gvrkvuon0071-17-51 10:48:00* Test Item Value Reference Range Interpretation Comments Urine Bacteria (test code = 63940-4) MODERATE NONE H [facility] HospitalUrine Epithelial Uckfz5017-62-63 10:48:00 * Test Item Value Reference Range Interpretation Comments Urine Epithelial Cells (test code = 69284-3) FEW NONE [facility] HospitalUrine TIZ1957-76-24 10:48:00* Test Item Value Reference Range Interpretation Comments Urine WBC (test code = 5821-4) 6-10 0-5 H [facility] HospitalU[facility] XFF8514-16-32 10:48:00* Test Item Value Reference Range Interpretation Comments Urine RBC (test code = 87103-2) 0-5 0-5 [facility] HospitalUrine Ofrwxgkr8718-44-84 10:48:00* Test Item Value Reference Range Interpretation Comments Urine Bacteria (test code = 53366-5) MODERATE NONE H [facility] HospitalUrine Epithelial Rxrxo8230-92-53 10:48:00 * Test Item Value Reference Range Interpretation Comments Urine Epithelial Cells (test code = 06243-9) FEW NONE [facility] HospitalUrine Mrlyi4499-36-16 10:24:00* Test Item Value Reference Range Interpretation Comments Urine Color (test code = 5778-6) YELLOW YELLOW [facility] HospitalUrine Lpmdgao1850-41-41 10:24:00* Test Item Value Reference Range Interpretation Comments Urine Clarity (test code = 93187-0) CLEAR CLEAR [facility] HospitalUrine Specific Zvltfvi2586-82-97 10:24:00 * Test Item Value Reference Range Interpretation Comments Urine Specific [place] (test code = 5811-5) 1.025 1.010-1.02 5 [facility] HospitalUrine rR7016-15-20 10:24:00* Test Item Value Reference Range Interpretation Comments Urine pH (test code = 63583-2) 6 5-7 [facility] Leukocyte Obxniewk5072-66-63 10:24:00* Test Item Value Reference Range Interpretation Comments Urine Leukocyte Esterase (test code = 97738-3) NEGATIVE NEGATIV E [facility] Smfupkj2306-42-59 10:24:00* Test Item Value Reference Range Interpretation Comments Urine Nitrite (test code = 89340-8) NEGATIVE NEGATIVE [facility] Rlvnfjv7739-24-31 10:24:00* Test Item Value Reference Range Interpretation Comments Urine Protein (test code = 11260-3) NEGATIVE NEGATIVE [facility] Glucose (UA)2018-11-24 10:24:00* Test Item Value Reference Range Interpretation Comments Urine Glucose (UA) (test code = 30202-1) NEGATIVE NEGATIVE [facility] Jtverrr3669-10-82 10:24:00* Test Item Value Reference Range Interpretation Comments Urine Ketones (test code = 76030-3) 1+ NEGATIVE H [facility] Xspkirhxqjsa9935-45-85 10:24:00* Test Item Value Reference Range Interpretation Comments Urine Urobilinogen (test code = 42852-8) 0.2 0.2-1 [facility] Bfhtmaibu1379-27-95 10:24:00* Test Item Value Reference Range Interpretation Comments Urine Bilirubin (test code = 1977-8) NEGATIVE NEGATIVE [facility] Lvjmd1065-67-26 10:24:00* Test Item Value Reference Range Interpretation Comments Urine Blood (test code = 98877-0) NEGATIVE NEGATIVE [facility] Hospital[facility] Gczjm8017-55-93 10:24:00* Test Item Value Reference Range Interpretation Comments Urine Color (test code = 5778-6) YELLOW YELLOW [facility] HospitalUrine Gvctljc7987-23-00 10:24:00* Test Item Value Reference Range Interpretation Comments Urine Clarity (test code = 52678-8) CLEAR CLEAR [facility] HospitalU[facility] Specific Gobcolj5253-06-26 10:24:00 * Test Item Value Reference Range Interpretation Comments Urine Specific [place] (test code = 5811-5) 1.025 1.010-1.02 5 [facility] HospitalU[facility] dC1614-56-91 10:24:00* Test Item Value Reference Range Interpretation Comments Urine pH (test code = 48928-2) 6 5-7 [facility] Leukocyte Saxlttpx9998-24-36 10:24:00* Test Item Value Reference Range Interpretation Comments Urine Leukocyte Esterase (test code = 72907-1) NEGATIVE NEGATIV E [facility] Yqsajnf5423-52-37 10:24:00* Test Item Value Reference Range Interpretation Comments Urine Nitrite (test code = 23480-6) NEGATIVE NEGATIVE [facility] [facility] Cyzbzpt4894-83-47 10:24:00* Test Item Value Reference Range Interpretation Comments Urine Protein (test code = 43793-0) NEGATIVE NEGATIVE [facility] (UA)2018-11-24 10:24:00* Test Item Value Reference Range Interpretation Comments Urine Glucose (UA) (test code = 16459-5) NEGATIVE NEGATIVE [facility] Jileiym4514-46-29 10:24:00* Test Item Value Reference Range Interpretation Comments Urine Ketones (test code = 79524-8) 1+ NEGATIVE H [facility] Kazkdsqwyirl5331-34-02 10:24:00* Test Item Value Reference Range Interpretation Comments Urine Urobilinogen (test code = 14031-2) 0.2 0.2-1 [facility] Fpmhzedet1694-84-08 10:24:00* Test Item Value Reference Range Interpretation Comments Urine Bilirubin (test code = 1977-8) NEGATIVE NEGATIVE [facility] Fhrty5345-25-08 10:24:00* Test Item Value Reference Range Interpretation Comments Urine Blood (test code = 83063-6) NEGATIVE NEGATIVE [facility] Xjpun5985-62-20 10:24:00* Test Item Value Reference Range Interpretation Comments Urine Color (test code = 5778-6) YELLOW YELLOW [facility] Nxhqykf7698-02-42 10:24:00* Test Item Value Reference Range Interpretation Comments Urine Clarity (test code = 40867-5) CLEAR CLEAR [facility] Specific Vlpdxho9507-19-61 10:24:00 * Test Item Value Reference Range Interpretation Comments Urine Specific [place] (test code = 5811-5) 1.025 1.010-1.02 5 [facility] rR7972-47-54 10:24:00* Test Item Value Reference Range Interpretation Comments Urine pH (test code = 87407-5) 6 5-7 [facility] Leukocyte Wuynjksr3904-97-43 10:24:00* Test Item Value Reference Range Interpretation Comments Urine Leukocyte Esterase (test code = 75156-2) NEGATIVE NEGATIV E [facility] Vvyryaj4764-18-76 10:24:00* Test Item Value Reference Range Interpretation Comments Urine Nitrite (test code = 37207-2) NEGATIVE NEGATIVE [facility] Hqgbmmv3995-45-35 10:24:00* Test Item Value Reference Range Interpretation Comments Urine Protein (test code = 23813-4) NEGATIVE NEGATIVE [facility] Glucose (UA)2018-11-24 10:24:00* Test Item Value Reference Range Interpretation Comments Urine Glucose (UA) (test code = 77777-5) NEGATIVE NEGATIVE [facility] Cnlpkqa8128-92-67 10:24:00* Test Item Value Reference Range Interpretation Comments Urine Ketones (test code = 47548-7) 1+ NEGATIVE H [facility] Njmqjymvathc5181-87-26 10:24:00* Test Item Value Reference Range Interpretation Comments Urine Urobilinogen (test code = 07403-3) 0.2 0.2-1 [facility] Mivihfssr9081-32-32 10:24:00* Test Item Value Reference Range Interpretation Comments Urine Bilirubin (test code = 1977-8) NEGATIVE NEGATIVE [facility] Zowoe3683-05-16 10:24:00* Test Item Value Reference Range Interpretation Comments Urine Blood (test code = 50559-0) NEGATIVE NEGATIVE [facility] Vawdk8729-95-80 10:24:00* Test Item Value Reference Range Interpretation Comments Urine Color (test code = 5778-6) YELLOW YELLOW [facility] Oqlbjej4193-23-49 10:24:00* Test Item Value Reference Range Interpretation Comments Urine Clarity (test code = 90174-6) CLEAR CLEAR [facility] Specific Ygxsnrs6053-88-32 10:24:00 * Test Item Value Reference Range Interpretation Comments Urine Specific [place] (test code = 5811-5) 1.025 1.010-1.02 5 [facility] hJ9453-94-56 10:24:00* Test Item Value Reference Range Interpretation Comments Urine pH (test code = 34612-3) 6 5-7 [facility] Leukocyte Jebiorgk3716-86-78 10:24:00* Test Item Value Reference Range Interpretation Comments Urine Leukocyte Esterase (test code = 16480-1) NEGATIVE NEGATIV E [facility] Ysejehs0340-15-61 10:24:00* Test Item Value Reference Range Interpretation Comments Urine Nitrite (test code = 65857-1) NEGATIVE NEGATIVE [facility] Ujgakzr0897-46-84 10:24:00* Test Item Value Reference Range Interpretation Comments Urine Protein (test code = 57155-3) NEGATIVE NEGATIVE [facility] Glucose (UA)2018-11-24 10:24:00* Test Item Value Reference Range Interpretation Comments Urine Glucose (UA) (test code = 82276-7) NEGATIVE NEGATIVE [facility] Lmpttfm1699-79-63 10:24:00* Test Item Value Reference Range Interpretation Comments Urine Ketones (test code = 53578-0) 1+ NEGATIVE H [facility] Fifbppnjgtam6402-19-45 10:24:00* Test Item Value Reference Range Interpretation Comments Urine Urobilinogen (test code = 38266-7) 0.2 0.2-1 [facility] Ggysmxykd3695-25-67 10:24:00* Test Item Value Reference Range Interpretation Comments Urine Bilirubin (test code = 1977-8) NEGATIVE NEGATIVE [facility] Edrfp4138-08-25 10:24:00* Test Item Value Reference Range Interpretation Comments Urine Blood (test code = 47834-7) NEGATIVE NEGATIVE [facility] Vxhkm7478-13-34 10:24:00* Test Item Value Reference Range Interpretation Comments Urine Color (test code = 5778-6) YELLOW YELLOW [facility] Ybbtzfr7555-74-02 10:24:00* Test Item Value Reference Range Interpretation Comments Urine Clarity (test code = 07891-7) CLEAR CLEAR [facility] Specific Mozkipm9196-95-70 10:24:00 * Test Item Value Reference Range Interpretation Comments Urine Specific [place] (test code = 5811-5) 1.025 1.010-1.02 5 [facility] iY7826-88-36 10:24:00* Test Item Value Reference Range Interpretation Comments Urine pH (test code = 90449-0) 6 5-7 [facility] Leukocyte Yagamipe3432-08-99 10:24:00* Test Item Value Reference Range Interpretation Comments Urine Leukocyte Esterase (test code = 36593-6) NEGATIVE NEGATIV E [facility] Wzqgpbz4718-05-16 10:24:00* Test Item Value Reference Range Interpretation Comments Urine Nitrite (test code = 85121-4) NEGATIVE NEGATIVE [facility] Txqjjmv6266-79-50 10:24:00* Test Item Value Reference Range Interpretation Comments Urine Protein (test code = 90995-6) NEGATIVE NEGATIVE [facility] Glucose (UA)2018-11-24 10:24:00* Test Item Value Reference Range Interpretation Comments Urine Glucose (UA) (test code = 08427-1) NEGATIVE NEGATIVE [facility] Jcuofno9109-58-81 10:24:00* Test Item Value Reference Range Interpretation Comments Urine Ketones (test code = 05555-5) 1+ NEGATIVE H [facility] Ycrhopfqujbr6871-95-81 10:24:00* Test Item Value Reference Range Interpretation Comments Urine Urobilinogen (test code = 34626-2) 0.2 0.2-1 [facility] Hgevutust5859-80-45 10:24:00* Test Item Value Reference Range Interpretation Comments Urine Bilirubin (test code = 1977-8) NEGATIVE NEGATIVE [facility] Gtexh6773-61-60 10:24:00* Test Item Value Reference Range Interpretation Comments Urine Blood (test code = 16800-7) NEGATIVE NEGATIVE [facility] color slqfdsonndgbk2191-07-75 08:40:00* Test Item Value Reference Range Interpretation Comments Urine Color (test code = 5778-6) YELLOW YELLOW [facility] nurhvsg5451-45-48 08:40:00* Test Item Value Reference Range Interpretation Comments Urine Clarity (test code = 53641-5) CLEAR CLEAR [facility] by Test strip 2018-11-24 08:40:00* Test Item Value Reference Range Interpretation Comments Urine Specific [place] (test code = 5811-5) 1.025 1.010-1.02 5 [facility] pH measurement by automated test pbqjz0619-75-29 08:40:00* Test Item Value Reference Range Interpretation Comments Urine pH (test code = 16989-4) 6 5-7 [facility] leukocyte esterase detection by automated test kynmd5131-39-04 08:40:00* Test Item Value Reference Range Interpretation Comments Urine Leukocyte Esterase (test code = 88077-7) NEGATIVE NEGATIV E [facility] nitrite detection by automated test vqsuf7783-28-68 08:40:00* Test Item Value Reference Range Interpretation Comments Urine Nitrite (test code = 92816-9) NEGATIVE NEGATIVE [facility] protein detection by automated test yqwbl9555-93-96 08:40:00* Test Item Value Reference Range Interpretation Comments Urine Protein (test code = 15190-1) NEGATIVE NEGATIVE [facility] glucose detection by automated test bxzbe7473-82-79 08:40:00* Test Item Value Reference Range Interpretation Comments Urine Glucose (UA) (test code = 92932-6) NEGATIVE NEGATIVE [facility] ketones detection by automated test vvnfk0963-48-66 08:40:00* Test Item Value Reference Range Interpretation Comments Urine Ketones (test code = 26374-6) 1+ NEGATIVE [facility] urobilinogen measurement by test strip (mass/volume)2018-11-24 08:40:00* Test Item Value Reference Range Interpretation Comments Urine Urobilinogen (test code = 44187-3) 0.2 0.2-1 [facility] total bilirubin vhrjykihp4712-89-25 08:40:00* Test Item Value Reference Range Interpretation Comments Urine Bilirubin (test code = 1977-8) NEGATIVE NEGATIVE [facility] erythrocytes fzllwnrjw5227-14-21 08:40:00* Test Item Value Reference Range Interpretation Comments Urine Blood (test code = 65664-0) NEGATIVE NEGATIVE [facility] HospitalAutomated urine sediment leukocyte count by microscopy (number/high power field)2018-11-24 08:40:00* Test Item Value Reference Range Interpretation Comments Urine WBC (test code = 5821-4) 6-10 0-5 [facility] HospitalErythrocytes detection in urine sediment by light ofztsuiajw6676-28-44 08:40:00* Test Item Value Reference Range Interpretation Comments Urine RBC (test code = 65207-2) 0-5 0-5 [facility] HospitalBacteria detection in urine sediment by light glstqljqwf8895-04-88 08:40:00* Test Item Value Reference Range Interpretation Comments Urine Bacteria (test code = 26471-7) MODERATE NONE [facility] HospitalEpithelial cells detection in urine sediment by light kgjexsoyyc2360-77-20 08:40:00* Test Item Value Reference Range Interpretation Comments Urine Epithelial Cells (test code = 14969-3) FEW NONE [facility] HospitalLipase2019-08-28 03:50:00* Test Item Value Reference Range Interpretation Comments Lipase (test code = 3040-3) < 4 8-78 L [facility] HospitalCXR 1 VEW - JNBO1873-38-23 18:41:00 [facility] [address] [address] Patient Name: BREE LINDSAY MR #: [id number] : 1975 Age/Sex: 42/M Req #: [id number] Adm Physician: ISACC JAVED MD Ordered by: NEIL PEREZ MD Report #: [id number] Location: [facility] Room/Bed: [place] [address] Procedure: [id number] HOPD/CXR 1 VEW - HOPD Exam Date: 11/22/18 Exam Time: 1755 REPORT STATUS: Signed EXA MINATION: CXR 1 VIEW - HOPD COMPARISON: None INDICATION: Hemateme sis [id number] DISCUSSION: Frontal view of the chest [...] on 11/22/181843 COPY TO: NEIL PEREZ MD OGPFBO0783-35-40 11:31:00* Test Item Value Reference Range Interpretation Comments GLUBED (test code = GLUBED) 163 mg/dL 74-106 H Performed by certified derrick operator at [facility] CTRFZV1195-99-82 05:52:00* Test Item Value Reference Range Interpretation Comments GLUBED (test code = GLUBED) 339 mg/dL 74-106 H Performed by certified derrick operator at [facility] BASIC METABOLIC IXXLC2347-65-38 05:04:00* Test Item Value Reference Range Interpretation [...] code = CA) 8.6 mg/dL 8.5-10.1 N JDDLBQALOG9986-01-98 05:04:00* Test Item Value Reference Range Interpretation Comments PHOSPHORUS (test code = PHOS) 2.5 mg/dL 2.5-4.9 N DEFZPKFSU9255-14-28 05:04:00* Test Item Value Reference Range Interpretation Comments MAGNESIUM (test code = MAG) 1.7 mg/dL 1.8-2.4 L CBC W/AUTO XFHG1373-20-87 04:58:00* Test Item Value Reference Range Interpretation [...] (test code = MDIFF) NO BASIC METABOLIC VOBJF3879-99-89 04:54:00* Test Item Value Reference Range Interpretation [...] CALCIUM (test code = CA) mg/dL 8.5-10.1 YOGYQEWDFL6589-49-65 04:54:00* Test Item Value Reference Range Interpretation Comments PHOSPHORUS (test code = PHOS) mg/dL 2.5-4.9 XMMJHRWOJ8891-66-43 04:54:00* Test Item Value Reference Range Interpretation Comments MAGNESIUM (test code = MAG) mg/dL 1.8-2.4 GCPHCI4650-56-34 21:18:00* Test Item Value Reference Range Interpretation Comments GLUBED (test code = GLUBED) 363 mg/dL 74-106 H Performed by certified derrick operator at [facility] WGWC4X6728-54-81 18:20:00* Test Item Value Reference Range Interpretation Comments GLYCOSYLATED HEMOGLOBIN (HA1C) (test code = GLYHGB) 9.0 % HbA1 4. 8-6.0 H ESTIMATED AVERAGE GLUCOSE (test code = EAG) 212 MG/DL RCTJFL5640-81-51 17:42:00* Test Item Value Reference Range Interpretation Comments GLUBED (test code = GLUBED) 216 mg/dL 74-106 H Performed by certified derrick operator at [facility] UNROMV1342-19-76 13:09:00* Test Item Value Reference Range Interpretation Comments GLUBED (test code = GLUBED) 209 mg/dL 74-106 H Performed by certified derrick operator at [facility] LACTIC UYAU6046-44-52 08:53:00* Test Item Value Reference Range Interpretation [...] taking into account the patients history. PROTHROMBIN PJYG2148-75-99 07:23:00* Test Item Value Reference Range Interpretation [...] (2.5-3.5) IS PATIENT ON ANTICOAGULANTS? NTHROMBOPLASTIN TIME [id number] 07:23:00* Test Item Value Reference Range Interpretation Comments THROMBOPLASTIN TIME PARTIAL (test code = PTT) 26.2 seconds 25.0-36. 5 N IS PATIENT ON ANTICOAGULANTS? NBASIC METABOLIC [id number] 06:41:00* Test Item Value Reference Range Interpretation [...] CA) 9.7 mg/dL 8.5-10.1 N HEPATIC FUNCTION XZPAE6037-97-76 06:41:00* Test Item Value Reference Range Interpretation [...] reference range due to change in reagent. [id number] 06:41:00* Test Item Value Reference Range Interpretation Comments LIPASE (test code = LIP) 16 U/L 73.0-393.0 L HGADIIDT-A8392-86-03 06:41:00* Test Item Value Reference Range Interpretation Comments TROPONIN-I (test code = TROPI) <0.015 ng/mL 0-0.045 N BASIC METABOLIC [id number] 06:27:00* Test Item Value Reference Range Interpretation [...] code = CA) mg/dL 8.5-10.1 HEPATIC FUNCTION [id number] 06:27:00* Test Item Value Reference Range Interpretation [...] TOTAL (test code = ALKP) IUnit/L 45-117 COAJBC4850-11-33 06:27:00* Test Item Value Reference Range Interpretation Comments LIPASE (test code = LIP) U/L 73.0-393.0 EJCKOWXY-G4985-27-03 06:27:00* Test Item Value Reference Range Interpretation Comments TROPONIN-I (test code = TROPI) ng/mL 0-0.045 POC LACTIC IHYU2951-50-25 06:23:00* Test Item Value Reference Range Interpretation Comments POC LACTIC ACID (test code = POCLAC) 1.46 MMOL/L 0.4-2.2 N CBC W/O [id number] 06:22:00* Test Item Value Reference Range Interpretation [...] = MPV) 11.6 fL 6.7-11.0 H GASTRIC RNHWCIFF5404-63-82 00:53:[address] [address] Patient Name: BREE LINDSAY MR #: [id number] : 1975 Age/Sex: 42/M [facility] #: [id number] [facility] #: [id number] [facility] Physician: Ordered by: TAVIA GARCIA MD Report #: [id number] Location: MD Room/Bed: Procedure: N M/GASTRIC EMPTYING Exam Date: Exam Time: REPORT STATUS: Signed Solid-phase gastric emptying study Reason for examination: GERD with esophagitis; gastritis The protocol used for this study is based on the Consensus Recommendations for Gastric Scintigraphy by the [place] [employer] and the Society [...] on 09/21/1856 COPY TO: TAVIA GARCIA MD Lqqxfo4430-40-72 15:34:00* Test Item Value Reference Range Interpretation Comments Lipase (test code = 3040-3) < 4 8-78 L [facility]2019-05-14 15:34:00* Test Item Value Reference Range Interpretation Comments Lipase (test code = 3040-3) < 4 8-78 L [facility] HospitalGLUBED2019-05-11 11:39:00* Test Item Value Reference Range Interpretation Comments GLUBED (test code = GLUBED) 102 mg/dL 74-106 N Performed by certified derrick operator at [facility] BASIC METABOLIC [id number] 11:27:00* Test Item Value Reference Range Interpretation [...] CA) 8.6 mg/dL 8.5-10.1 N CBC W/AUTO [id number] 11:02:00* Test Item Value Reference Range Interpretation [...] DIFF REQUIRED (test code = MDIFF) NO [id number] 07:41:00* Test Item Value Reference Range Interpretation Comments GLUBED (test code = GLUBED) 111 mg/dL 74-106 H Performed by certified derrick operator at [facility] [id number] 21:20:00* Test Item Value Reference Range Interpretation Comments GLUBED (test code = GLUBED) 201 mg/dL 74-106 H Performed by certified derrick operator at [facility] [id number] 16:36:00* Test Item Value Reference Range Interpretation Comments GLUBED (test code = GLUBED) 214 mg/dL 74-106 H Performed by certified derrick operator at [facility] [id number] 12:00:00* Test Item Value Reference Range Interpretation Comments GLUBED (test code = GLUBED) 266 mg/dL 74-106 H Performed by certified derrick operator at [facility] BNFOWQ2169-80-69 07:31:00* Test Item Value Reference Range Interpretation Comments GLUBED (test code = GLUBED) 252 mg/dL 74-106 H Performed by certified derrick operator at [facility] [id number] 21:20:00* Test Item Value Reference Range Interpretation Comments GLUBED (test code = GLUBED) 109 mg/dL 74-106 H Performed by certified derrick operator at [facility] [id number] 16:47:00* Test Item Value Reference Range Interpretation Comments GLUBED (test code = GLUBED) 328 mg/dL 74-106 H Performed by certified derrick operator at [facility] [id number] 11:32:00* Test Item Value Reference Range Interpretation Comments GLUBED (test code = GLUBED) 145 mg/dL 74-106 H Performed by certified derrick operator at [facility] [id number] 07:54:00* Test Item Value Reference Range Interpretation Comments GLUBED (test code = GLUBED) 347 mg/dL 74-106 H Performed by certified derrick operator at [facility] CBC W/AUTO [id number] 07:28:00* Test Item Value Reference Range Interpretation [...] (test code = MDIFF) NO BASIC METABOLIC [id number] 07:10:00* Test Item Value Reference Range Interpretation [...] CA) 8.8 mg/dL 8.5-10.1 N BASIC METABOLIC [id number] 06:59:00* Test Item Value Reference Range Interpretation [...] CALCIUM (test code = CA) mg/dL 8.5-10.1 [id number] 22:44:00* Test Item Value Reference Range Interpretation Comments GLUBED (test code = GLUBED) 364 mg/dL 74-106 H Performed by certified derrick operator at [facility] BASIC METABOLIC [id number] 17:43:00* Test Item Value Reference Range Interpretation [...] CA) 9.9 mg/dL 8.5-10.1 N HEPATIC FUNCTION [id number] 17:43:00* Test Item Value Reference Range Interpretation [...] reference range due to change in reagent. [id number] 17:43:00* Test Item Value Reference Range Interpretation Comments LIPASE (test code = LIP) 18 U/L 73.0-393.0 L BASIC METABOLIC [id number] 17:22:00* Test Item Value Reference Range Interpretation [...] code = CA) mg/dL 8.5-10.1 HEPATIC FUNCTION [id number] 17:22:00* Test Item Value Reference Range Interpretation [...] TOTAL (test code = ALKP) IUnit/L 45-117 [id number] 17:22:00* Test Item Value Reference Range Interpretation Comments LIPASE (test code = LIP) U/L 73.0-393.0 URINALYSIS IFNYGJKQ6111-64-73 17:00:00* Test Item Value Reference Range Interpretation [...] FEW #/LPF FEW Urine Source? Clean CatchURINALYSIS [id number] 16:55:00* Test Item Value Reference Range Interpretation [...] HPF NONE Urine Source? Clean CatchCBC W/O [id number] 16:40:00* Test Item Value Reference Range Interpretation [...] MPV) 10.7 fL 6.7-11.0 N CBC W/O [id number] 16:37:00* Test Item Value Reference Range Interpretation [...] (test code = MPV) fL 6.7-11.0 Bedside Assjudn0464-29-27 08:08:00* Test Item Value Reference Range Interpretation Comments Bedside Glucose (test code = 29771-5) 217 70-120 H Meter ID: [id number] Glucose 2018-07-07 08:08:00* Test Item Value Reference Range Interpretation Comments Bedside Glucose (test code = 12044-9) 217 70-120 H Meter ID: [id number]ucose 2018-07-07 08:08:00* Test Item Value Reference Range Interpretation Comments Bedside Glucose (test code = 91484-3) 217 70-120 H Meter ID: [id number] Level 2018-07-07 06:31:00* Test Item Value Reference Range Interpretation Comments Magnesium Level (test code = 25416-9) 1.4 1.3-2.1 [facility]2019-04-10 06:31:00* Test Item Value Reference Range Interpretation Comments Magnesium Level (test code = 90393-5) 1.4 1.3-2.1 [facility]2019-04-10 06:31:00* Test Item Value Reference Range Interpretation Comments Magnesium Level (test code = 45939-9) 1.4 1.3-2.1 [facility]2019-04-10 06:31:00* Test Item Value Reference Range Interpretation Comments Magnesium Level (test code = 89912-0) 1.4 1.3-2.1 [facility]2019-04-10 06:27:00* Test Item Value Reference Range Interpretation Comments Sodium Level (test code = 2951-2) 137 136-145 [facility] HospitalPotassium Aoveu8912-00-13 06:27:00* Test Item Value Reference Range Interpretation Comments Potassium Level (test code = 2823-3) 2.7 3.5-5.1 LL Results repeated and called to [place] at 0624 on 07/07/18 by Lisa henry Read back and verified.[facility] HospitalChloride Level 2018-07-07 06:27:00* Test Item Value Reference Range Interpretation Comments Chloride Level (test code = 2075-0) 96 98-107 L [facility] HospitalCarbon Dioxide [id number] 06:27:00* Test Item Value Reference Range Interpretation Comments Carbon Dioxide Level (test code = 2028-9) 32 22-29 H [facility] HospitalAnion Tek8461-19-00 06:27:00* Test Item Value Reference Range Interpretation Comments Anion Gap (test code = 44251-9) 11.7 8-16 [facility] HospitalBlood Urea Hasdtaml2959-78-56 06:27:00* Test Item Value Reference Range Interpretation Comments Blood Urea Nitrogen (test code = 3094-0) 6 7-26 L [facility] HospitalCreatinine2019-04-10 06:27:00* Test Item Value Reference Range Interpretation Comments Creatinine (test code = 2160-0) 0.85 0.72-1.25 [facility] HospitalBUN/Creatinine Pkyqa2990-39-74 06:27:00* Test Item Value Reference Range Interpretation Comments BUN/Creatinine Ratio (test code = 3097-3) 7 6-25 [facility] HospitalEstimat Glomerular Filtration Rate 2018-07-07 06:27:00* Test Item Value Reference Range Interpretation Comments Estimat Glomerular Filtration Rate (test code = 302972439) > 60 >60 Ranges were taken from the National Kidney Disease Education Program and the [facility] [facility] literature.Reference ranges:60 or greater: [id number] ( for 3 consecutive months): Chronic kidney disease 15 or less: Kidney failureHarris [facility] System [facility] HospitalGlucose Gmhis8845-16-38 06:27:00* Test Item Value Reference Range Interpretation Comments Glucose Level (test code = HMP9281) 136 74-118 H [facility] HospitalCalcium Nhpkx1456-77-92 06:27:00* Test Item Value Reference Range Interpretation Comments Calcium Level (test code = 36410-4) 8.4 8.4-10.2 [facility] HospitalTotal Islzromgz8145-59-48 06:27:00* Test Item Value Reference Range Interpretation Comments Total Bilirubin (test code = 1975-2) 0.5 0.2-1.2 [facility] HospitalAspartate Amino Transf (AST/SGOT) 2018-07-07 06:27:00* Test Item Value Reference Range Interpretation Comments Aspartate Amino Transf (AST/SGOT) (test code = Aspartate Amino Transf (AST/SGOT)) 12 5-34 [facility] HospitalAlanine Aminotransferase (ALT/SGPT) 2018-07-07 06:27:00* Test Item Value Reference Range Interpretation Comments Alanine Aminotransferase (ALT/SGPT) (test code = 1742-6) < 6 0-55 [facility] HospitalTotal Hbbrrji2615-96-49 06:27:00* Test Item Value Reference Range Interpretation Comments Total Protein (test code = 2885-2) 5.8 6.5-8.1 L [facility] HospitalAlbumin2019-04-10 06:27:00* Test Item Value Reference Range Interpretation Comments Albumin (test code = 1751-7) 3.1 3.5-5.0 L [facility] HospitalGlobulin2019-04-10 06:27:00* Test Item Value Reference Range Interpretation Comments Globulin (test code = 45488-6) 2.7 2.3-3.5 [facility] HospitalAlbumin/Globulin Pnqtk4321-64-87 06:27:00 * Test Item Value Reference Range Interpretation Comments Albumin/Globulin Ratio (test code = 1759-0) 1.1 0.8-2.0 [facility] HospitalAlkaline Gfdhnutnddm2609-24-12 06:27:00* Test Item Value Reference Range Interpretation Comments Alkaline Phosphatase (test code = 6768-6) 68 40-150 [facility] Qcxul1862-60-91 06:27:00* Test Item Value Reference Range Interpretation Comments Sodium Level (test code = 2951-2) 137 136-145 [facility] HospitalPotassium Xyqsc1010-96-62 06:27:00* Test Item Value Reference Range Interpretation Comments Potassium Level (test code = 2823-3) 2.7 3.5-5.1 LL Results repeated and called to [place] at 0624 on 07/07/18 by Lisa henry Read back and verified.[facility] HospitalChloride Level 2018-07-07 06:27:00* Test Item Value Reference Range Interpretation Comments Chloride Level (test code = 2075-0) 96 98-107 L [facility] HospitalCarbon Dioxide Vqgcv5408-03-38 06:27:00* Test Item Value Reference Range Interpretation Comments Carbon Dioxide Level (test code = 2028-9) 32 22-29 H [facility] HospitalAnion Ajx1001-87-77 06:27:00* Test Item Value Reference Range Interpretation Comments Anion Gap (test code = 07405-1) 11.7 8-16 [facility] HospitalBlood Urea Qfdjcxve0015-78-46 06:27:00* Test Item Value Reference Range Interpretation Comments Blood Urea Nitrogen (test code = 3094-0) 6 7-26 L [facility] HospitalCreatinine2019-04-10 06:27:00* Test Item Value Reference Range Interpretation Comments Creatinine (test code = 2160-0) 0.85 0.72-1.25 [facility] HospitalBUN/Creatinine Gkojz1921-01-65 06:27:00* Test Item Value Reference Range Interpretation Comments BUN/Creatinine Ratio (test code = 3097-3) 7 6-25 [facility] HospitalEstimat Glomerular Filtration Rate 2018-07-07 06:27:00* Test Item Value Reference Range Interpretation Comments Estimat Glomerular Filtration Rate (test code = 622696116) > 60 >60 Ranges were taken from the National Kidney Disease Education Program and the [facility] literature.Reference ranges:60 or greater: Wymwco48-77 ( for 3 consecutive months): Chronic kidney disease 15 or less: Kidney failureHarris Health System Ben [facility] HospitalGlucose Cwfnb8294-14-65 06:27:00* Test Item Value Reference Range Interpretation Comments Glucose Level (test code = CEF8494) 136 74-118 H [facility] HospitalCalcium Ncsjo3783-00-35 06:27:00* Test Item Value Reference Range Interpretation Comments Calcium Level (test code = 27208-9) 8.4 8.4-10.2 [facility]To[facility] Mcuyotugm4205-91-34 06:27:00* Test Item Value Reference Range Interpretation Comments Total Bilirubin (test code = 1975-2) 0.5 0.2-1.2 [facility] HospitalAspartate Amino Transf (AST/SGOT) 2018-07-07 06:27:00* Test Item Value Reference Range Interpretation Comments Aspartate Amino Transf (AST/SGOT) (test code = Aspartate Amino Transf (AST/SGOT)) 12 5-34 [facility] HospitalAlanine Aminotransferase (ALT/SGPT) 2018-07-07 06:27:00* Test Item Value Reference Range Interpretation Comments Alanine Aminotransferase (ALT/SGPT) (test code = 1742-6) < 6 0-55 [facility] Pcbphgc2954-54-38 06:27:00* Test Item Value Reference Range Interpretation Comments Total Protein (test code = 2885-2) 5.8 6.5-8.1 L [facility] HospitalAlbumin2019-04-10 06:27:00* Test Item Value Reference Range Interpretation Comments Albumin (test code = 1751-7) 3.1 3.5-5.0 L [facility] HospitalGlobulin2019-04-10 06:27:00* Test Item Value Reference Range Interpretation Comments Globulin (test code = 34405-8) 2.7 2.3-3.5 [facility] HospitalAlbumin/Globulin Pvofq1191-54-17 06:27:00 * Test Item Value Reference Range Interpretation Comments Albumin/Globulin Ratio (test code = 1759-0) 1.1 0.8-2.0 [facility] HospitalAlkaline Ktsrrmkldso0498-31-51 06:27:00* Test Item Value Reference Range Interpretation Comments Alkaline Phosphatase (test code = 6768-6) 68 40-150 [facility] Xiarq3691-56-63 06:27:00* Test Item Value Reference Range Interpretation Comments Sodium Level (test code = 2951-2) 137 136-145 [facility] HospitalPotassium Dvxgm1242-46-47 06:27:00* Test Item Value Reference Range Interpretation Comments Potassium Level (test code = 2823-3) 2.7 3.5-5.1 LL Results repeated and called to [place] at 0624 on 07/07/18 by Lisa henry Read back and verified.[facility] HospitalChloride Level 2018-07-07 06:27:00* Test Item Value Reference Range Interpretation Comments Chloride Level (test code = 2075-0) 96 98-107 L [facility] HospitalCarbon Dioxide Ntkva2277-17-58 06:27:00* Test Item Value Reference Range Interpretation Comments Carbon Dioxide Level (test code = 2028-9) 32 22-29 H [facility] HospitalAnion Hyb1536-73-43 06:27:00* Test Item Value Reference Range Interpretation Comments Anion Gap (test code = 77571-6) 11.7 8-16 [facility] HospitalBlood Urea Tziccwsw1944-79-73 06:27:00* Test Item Value Reference Range Interpretation Comments Blood Urea Nitrogen (test code = 3094-0) 6 7-26 L [facility] HospitalCreatinine2019-04-10 06:27:00* Test Item Value Reference Range Interpretation Comments Creatinine (test code = 2160-0) 0.85 0.72-1.25 [facility] HospitalBUN/Creatinine Gnwwh4094-51-96 06:27:00* Test Item Value Reference Range Interpretation Comments BUN/Creatinine Ratio (test code = 3097-3) 7 6-25 [facility] HospitalEstimat Glomerular Filtration Rate 2018-07-07 06:27:00* Test Item Value Reference Range Interpretation Comments Estimat Glomerular Filtration Rate (test code = 468643941) > 60 >60 Ranges were taken from the National Kidney Disease Education Program and the [facility] literature.Reference ranges:60 or greater: Wzqhvo62-01 ( for 3 consecutive months): Chronic kidney disease 15 or less: Kidney failureHarris Health System Ben Taub HospitalGlucose Jazvh9692-99-68 06:27:00* Test Item Value Reference Range Interpretation Comments Glucose Level (test code = DVF5373) 136 74-118 H [facility] HospitalCalcium Pftqz3701-27-33 06:27:00* Test Item Value Reference Range Interpretation Comments Calcium Level (test code = 80049-1) 8.4 8.4-10.2 [facility] HospitalTotal Fevgdyvnd4669-05-50 06:27:00* Test Item Value Reference Range Interpretation Comments Total Bilirubin (test code = 1975-2) 0.5 0.2-1.2 [facility] HospitalAspartate Amino Transf (AST/SGOT) 2018-07-07 06:27:00* Test Item Value Reference Range Interpretation Comments Aspartate Amino Transf (AST/SGOT) (test code = Aspartate Amino Transf (AST/SGOT)) 12 5-34 [facility] HospitalAlanine Aminotransferase (ALT/SGPT) 2018-07-07 06:27:00* Test Item Value Reference Range Interpretation Comments Alanine Aminotransferase (ALT/SGPT) (test code = 1742-6) < 6 0-55 [facility] HospitalTotal Ugschcd5045-98-29 06:27:00* Test Item Value Reference Range Interpretation Comments Total Protein (test code = 2885-2) 5.8 6.5-8.1 L [facility] HospitalAlbumin2019-04-10 06:27:00* Test Item Value Reference Range Interpretation Comments Albumin (test code = 1751-7) 3.1 3.5-5.0 L [facility] HospitalGlobulin2019-04-10 06:27:00* Test Item Value Reference Range Interpretation Comments Globulin (test code = 13836-1) 2.7 2.3-3.5 [facility] HospitalAlbumin/Globulin Uhrhk6462-72-77 06:27:00 * Test Item Value Reference Range Interpretation Comments Albumin/Globulin Ratio (test code = 1759-0) 1.1 0.8-2.0 [facility] HospitalAlkaline Drjpeoslxtj4673-91-26 06:27:00* Test Item Value Reference Range Interpretation Comments Alkaline Phosphatase (test code = 6768-6) 68 40-150 [facility] HospitalTotal Xcljwrrsi6784-40-84 06:27:00* Test Item Value Reference Range Interpretation Comments Total Bilirubin (test code = 1975-2) 0.5 0.2-1.2 [facility] HospitalAspartate Amino Transf (AST/SGOT) 2018-07-07 06:27:00* Test Item Value Reference Range Interpretation Comments Aspartate Amino Transf (AST/SGOT) (test code = Aspartate Amino Transf (AST/SGOT)) 12 5-34 [facility] HospitalAlanine Aminotransferase (ALT/SGPT) 2018-07-07 06:27:00* Test Item Value Reference Range Interpretation Comments Alanine Aminotransferase (ALT/SGPT) (test code = 1742-6) < 6 0-55 [facility]To[facility] Fbxtlsv6378-22-57 06:27:00* Test Item Value Reference Range Interpretation Comments Total Protein (test code = 2885-2) 5.8 6.5-8.1 L [facility] HospitalAlbumin2019-04-10 06:27:00* Test Item Value Reference Range Interpretation Comments Albumin (test code = 1751-7) 3.1 3.5-5.0 L [facility] HospitalGlobulin2019-04-10 06:27:00* Test Item Value Reference Range Interpretation Comments Globulin (test code = 15939-9) 2.7 2.3-3.5 [facility] HospitalAlbumin/Globulin Rhkax4720-77-26 06:27:00 * Test Item Value Reference Range Interpretation Comments Albumin/Globulin Ratio (test code = 1759-0) 1.1 0.8-2.0 [facility] HospitalAlkaline Omxthjzjxih8030-49-78 06:27:00* Test Item Value Reference Range Interpretation Comments Alkaline Phosphatase (test code = 6768-6) 68 40-150 [facility] HospitalTotal Rfieycbgm6489-09-23 06:27:00* Test Item Value Reference Range Interpretation Comments Total Bilirubin (test code = 1975-2) 0.5 0.2-1.2 [facility] HospitalAspartate Amino Transf (AST/SGOT) 2018-07-07 06:27:00* Test Item Value Reference Range Interpretation Comments Aspartate Amino Transf (AST/SGOT) (test code = Aspartate Amino Transf (AST/SGOT)) 12 5-34 [facility] HospitalAlanine Aminotransferase (ALT/SGPT) 2018-07-07 06:27:00* Test Item Value Reference Range Interpretation Comments Alanine Aminotransferase (ALT/SGPT) (test code = 1742-6) < 6 0-55 [facility]To[facility] Iojxxde1624-95-71 06:27:00* Test Item Value Reference Range Interpretation Comments Total Protein (test code = 2885-2) 5.8 6.5-8.1 L [facility] HospitalAlbumin2019-04-10 06:27:00* Test Item Value Reference Range Interpretation Comments Albumin (test code = 1751-7) 3.1 3.5-5.0 L [facility] HospitalGlobulin2019-04-10 06:27:00* Test Item Value Reference Range Interpretation Comments Globulin (test code = 04865-3) 2.7 2.3-3.5 [facility] HospitalAlbumin/Globulin Evmgt9372-84-27 06:27:00 * Test Item Value Reference Range Interpretation Comments Albumin/Globulin Ratio (test code = 1759-0) 1.1 0.8-2.0 [facility] HospitalAlkaline Ygtvwfkszyr0649-76-27 06:27:00* Test Item Value Reference Range Interpretation Comments Alkaline Phosphatase (test code = 6768-6) 68 40-150 [facility] HospitalTotal Wejkfzflp5906-95-01 06:27:00* Test Item Value Reference Range Interpretation Comments Total Bilirubin (test code = 1975-2) 0.5 0.2-1.2 [facility] HospitalAspartate Amino Transf (AST/SGOT) 2018-07-07 06:27:00* Test Item Value Reference Range Interpretation Comments Aspartate Amino Transf (AST/SGOT) (test code = Aspartate Amino Transf (AST/SGOT)) 12 5-34 [facility] HospitalAlanine Aminotransferase (ALT/SGPT) 2018-07-07 06:27:00* Test Item Value Reference Range Interpretation Comments Alanine Aminotransferase (ALT/SGPT) (test code = 1742-6) < 6 0-55 [facility] HospitalTotal Itbiaqx8627-31-49 06:27:00* Test Item Value Reference Range Interpretation Comments Total Protein (test code = 2885-2) 5.8 6.5-8.1 L [facility] HospitalAlbumin2019-04-10 06:27:00* Test Item Value Reference Range Interpretation Comments Albumin (test code = 1751-7) 3.1 3.5-5.0 L [facility] HospitalGlobulin2019-04-10 06:27:00* Test Item Value Reference Range Interpretation Comments Globulin (test code = 72281-9) 2.7 2.3-3.5 [facility] HospitalAlbumin/Globulin Nsdlm8869-55-67 06:27:00 * Test Item Value Reference Range Interpretation Comments Albumin/Globulin Ratio (test code = 1759-0) 1.1 0.8-2.0 [facility] HospitalAlkaline Jcmxkttkvcb0358-36-35 06:27:00* Test Item Value Reference Range Interpretation Comments Alkaline Phosphatase (test code = 6768-6) 68 40-150 [facility] HospitalWhite Blood Ecjxc7522-73-48 05:57:00* Test Item Value Reference Range Interpretation Comments White Blood Count (test code = 6690-2) 7.71 4.8-10.8 [facility] HospitalRed Blood Lfvnk2352-96-62 05:57:00* Test Item Value Reference Range Interpretation Comments Red Blood Count (test code = 789-8) 3.90 4.3-5.7 L [facility] HospitalHemoglobin2019-04-10 05:57:00* Test Item Value Reference Range Interpretation Comments Hemoglobin (test code = 78710-7) 11.2 14.0-18.0 L [facility] HospitalHematocrit2019-04-10 05:57:00* Test Item Value Reference Range Interpretation Comments Hematocrit (test code = 4544-3) 33.8 38.2-49.6 L [facility] HospitalMean Corpuscular Fjxeie1715-71-41 05:57:00* Test Item Value Reference Range Interpretation Comments Mean Corpuscular Volume (test code = 787-2) 86.7 81-99 [facility] HospitalMean Corpuscular Jgxpppsipz9597-85-28 05:57:00* Test Item Value Reference Range Interpretation Comments Mean Corpuscular Hemoglobin (test code = 785-6) 28.7 28-32 [facility] HospitalMean Corpuscular Hemoglobin Concent 2018-07-07 05:57:00* Test Item Value Reference Range Interpretation Comments Mean Corpuscular Hemoglobin Concent (test code = 786-4) 33.1 31-35 [facility] HospitalRed Cell Distribution Xbylo4130-15-34 05:57:00* Test Item Value Reference Range Interpretation Comments Red Cell Distribution Width (test code = 24988-6) 13.2 11.7 -14.4 [facility] HospitalPlatelet Vnjpc4580-88-80 05:57:00* Test Item Value Reference Range Interpretation Comments Platelet Count (test code = 777-3) 182 140-360 [facility] HospitalNeutrophils (%) (Auto)2018-07-07 05:57:00 * Test Item Value Reference Range Interpretation Comments Neutrophils (%) (Auto) (test code = 03107-6) 54.0 38.7-80.0 [facility] HospitalLymphocytes (%) (Auto)2018-07-07 05:57:00 * Test Item Value Reference Range Interpretation Comments Lymphocytes (%) (Auto) (test code = 736-9) 20.6 18.0-39.1 [facility] HospitalMonocytes (%) (Auto)2018-07-07 05:57:00* Test Item Value Reference Range Interpretation Comments Monocytes (%) (Auto) (test code = 5905-5) 19.5 4.4-11.3 H [facility] HospitalEosinophils (%) (Auto)2018-07-07 05:57:00 * Test Item Value Reference Range Interpretation Comments Eosinophils (%) (Auto) (test code = 713-8) 5.3 0.0-6.0 [facility] HospitalBasophils (%) (Auto)2018-07-07 05:57:00* Test Item Value Reference Range Interpretation Comments Basophils (%) (Auto) (test code = 706-2) 0.5 0.0-1.0 [facility] HospitalIM GRANULOCYTES %2018-07-07 05:57:00* Test Item Value Reference Range Interpretation Comments IM GRANULOCYTES % (test code = IM GRANULOCYTES %) 0.1 0.0- 1.0 [facility] HospitalNeutrophils # (Auto)2018-07-07 05:57:00* Test Item Value Reference Range Interpretation Comments Neutrophils # (Auto) (test code = 751-8) 4.2 2.1-6.9 [facility] HospitalLymphocytes # (Auto)2018-07-07 05:57:00* Test Item Value Reference Range Interpretation Comments Lymphocytes # (Auto) (test code = 40189-5) 1.6 1.0-3.2 [facility] HospitalMonocytes # (Auto)2018-07-07 05:57:00* Test Item Value Reference Range Interpretation Comments Monocytes # (Auto) (test code = 742-7) 1.5 0.2-0.8 H [facility] HospitalEosinophils # (Auto)2018-07-07 05:57:00* Test Item Value Reference Range Interpretation Comments Eosinophils # (Auto) (test code = 711-2) 0.4 0.0-0.4 [facility] HospitalBasophils # (Auto)2018-07-07 05:57:00* Test Item Value Reference Range Interpretation Comments Basophils # (Auto) (test code = 704-7) 0.0 0.0-0.1 [facility] HospitalAbsolute Immature Granulocyte (auto 2018-07-07 05:57:00* Test Item Value Reference Range Interpretation Comments Absolute Immature Granulocyte (auto (zeenat t code = Absolute Immature Granulocyte (auto) 0.01 0-0.1 [facility] HospitalWhite Blood Qdcxk5217-08-38 05:57:00* Test Item Value Reference Range Interpretation Comments White Blood Count (test code = 6690-2) 7.71 4.8-10.8 [facility] HospitalRed Blood Dwdzm6130-83-86 05:57:00* Test Item Value Reference Range Interpretation Comments Red Blood Count (test code = 789-8) 3.90 4.3-5.7 L [facility] HospitalHemoglobin2019-04-10 05:57:00* Test Item Value Reference Range Interpretation Comments Hemoglobin (test code = 13450-4) 11.2 14.0-18.0 L [facility] HospitalHematocrit2019-04-10 05:57:00* Test Item Value Reference Range Interpretation Comments Hematocrit (test code = 4544-3) 33.8 38.2-49.6 L [facility] HospitalMean Corpuscular Eojvxg7280-67-65 05:57:00* Test Item Value Reference Range Interpretation Comments Mean Corpuscular Volume (test code = 787-2) 86.7 81-99 [facility] HospitalMean Corpuscular Klyipnytli5413-01-72 05:57:00* Test Item Value Reference Range Interpretation Comments Mean Corpuscular Hemoglobin (test code = 785-6) 28.7 28-32 [facility] HospitalMean Corpuscular Hemoglobin Concent 2018-07-07 05:57:00* Test Item Value Reference Range Interpretation Comments Mean Corpuscular Hemoglobin Concent (test code = 786-4) 33.1 31-35 [facility] HospitalRed Cell Distribution Zaclv0433-05-65 05:57:00* Test Item Value Reference Range Interpretation Comments Red Cell Distribution Width (test code = 76569-1) 13.2 11.7 -14.4 [facility] HospitalPlatelet Cijbh9897-54-83 05:57:00* Test Item Value Reference Range Interpretation Comments Platelet Count (test code = 777-3) 182 140-360 [facility] HospitalNeutrophils (%) (Auto)2018-07-07 05:57:00 * Test Item Value Reference Range Interpretation Comments Neutrophils (%) (Auto) (test code = 77769-6) 54.0 38.7-80.0 [facility] HospitalLymphocytes (%) (Auto)2018-07-07 05:57:00 * Test Item Value Reference Range Interpretation Comments Lymphocytes (%) (Auto) (test code = 736-9) 20.6 18.0-39.1 [facility] HospitalMonocytes (%) (Auto)2018-07-07 05:57:00* Test Item Value Reference Range Interpretation Comments Monocytes (%) (Auto) (test code = 5905-5) 19.5 4.4-11.3 H [facility] HospitalEosinophils (%) (Auto)2018-07-07 05:57:00 * Test Item Value Reference Range Interpretation Comments Eosinophils (%) (Auto) (test code = 713-8) 5.3 0.0-6.0 [facility] HospitalBasophils (%) (Auto)2018-07-07 05:57:00* Test Item Value Reference Range Interpretation Comments Basophils (%) (Auto) (test code = 706-2) 0.5 0.0-1.0 [facility] HospitalIM GRANULOCYTES %2018-07-07 05:57:00* Test Item Value Reference Range Interpretation Comments IM GRANULOCYTES % (test code = IM GRANULOCYTES %) 0.1 0.0- 1.0 [facility] HospitalNeutrophils # (Auto)2018-07-07 05:57:00* Test Item Value Reference Range Interpretation Comments Neutrophils # (Auto) (test code = 751-8) 4.2 2.1-6.9 [facility] HospitalLymphocytes # (Auto)2018-07-07 05:57:00* Test Item Value Reference Range Interpretation Comments Lymphocytes # (Auto) (test code = 40310-0) 1.6 1.0-3.2 [facility] HospitalMonocytes # (Auto)2018-07-07 05:57:00* Test Item Value Reference Range Interpretation Comments Monocytes # (Auto) (test code = 742-7) 1.5 0.2-0.8 H [facility] HospitalEosinophils # (Auto)2018-07-07 05:57:00* Test Item Value Reference Range Interpretation Comments Eosinophils # (Auto) (test code = 711-2) 0.4 0.0-0.4 [facility] HospitalBasophils # (Auto)2018-07-07 05:57:00* Test Item Value Reference Range Interpretation Comments Basophils # (Auto) (test code = 704-7) 0.0 0.0-0.1 [facility] HospitalAbsolute Immature Granulocyte (auto 2018-07-07 05:57:00* Test Item Value Reference Range Interpretation Comments Absolute Immature Granulocyte (auto (zeenat t code = Absolute Immature Granulocyte (auto) 0.01 0-0.1 [facility] HospitalWhite Blood Wnukv9027-76-95 05:57:00* Test Item Value Reference Range Interpretation Comments White Blood Count (test code = 6690-2) 7.71 4.8-10.8 [facility] HospitalRed Blood Xhdbf2850-15-42 05:57:00* Test Item Value Reference Range Interpretation Comments Red Blood Count (test code = 789-8) 3.90 4.3-5.7 L [facility] HospitalHemoglobin2019-04-10 05:57:00* Test Item Value Reference Range Interpretation Comments Hemoglobin (test code = 17968-0) 11.2 14.0-18.0 L [facility] HospitalHematocrit2019-04-10 05:57:00* Test Item Value Reference Range Interpretation Comments Hematocrit (test code = 4544-3) 33.8 38.2-49.6 L [facility] HospitalMean Corpuscular Vroczh3811-07-37 05:57:00* Test Item Value Reference Range Interpretation Comments Mean Corpuscular Volume (test code = 787-2) 86.7 81-99 [facility] HospitalMean Corpuscular Scswckkcqc9954-11-81 05:57:00* Test Item Value Reference Range Interpretation Comments Mean Corpuscular Hemoglobin (test code = 785-6) 28.7 28-32 [facility] HospitalMean Corpuscular Hemoglobin Concent 2018-07-07 05:57:00* Test Item Value Reference Range Interpretation Comments Mean Corpuscular Hemoglobin Concent (test code = 786-4) 33.1 31-35 [facility] HospitalRed Cell Distribution Qajuf9849-58-44 05:57:00* Test Item Value Reference Range Interpretation Comments Red Cell Distribution Width (test code = 91944-5) 13.2 11.7 -14.4 [facility] Hospital[facility]atelet Jkkgv0860-07-29 05:57:00* Test Item Value Reference Range Interpretation Comments Platelet Count (test code = 777-3) 182 140-360 [facility] HospitalNeutrophils (%) (Auto)2018-07-07 05:57:00 * Test Item Value Reference Range Interpretation Comments Neutrophils (%) (Auto) (test code = 28973-4) 54.0 38.7-80.0 [facility] HospitalLymphocytes (%) (Auto)2018-07-07 05:57:00 * Test Item Value Reference Range Interpretation Comments Lymphocytes (%) (Auto) (test code = 736-9) 20.6 18.0-39.1 [facility] HospitalMonocytes (%) (Auto)2018-07-07 05:57:00* Test Item Value Reference Range Interpretation Comments Monocytes (%) (Auto) (test code = 5905-5) 19.5 4.4-11.3 H [facility] HospitalEosinophils (%) (Auto)2018-07-07 05:57:00 * Test Item Value Reference Range Interpretation Comments Eosinophils (%) (Auto) (test code = 713-8) 5.3 0.0-6.0 [facility] HospitalBasophils (%) (Auto)2018-07-07 05:57:00* Test Item Value Reference Range Interpretation Comments Basophils (%) (Auto) (test code = 706-2) 0.5 0.0-1.0 [facility] HospitalIM GRANULOCYTES %2018-07-07 05:57:00* Test Item Value Reference Range Interpretation Comments IM GRANULOCYTES % (test code = IM GRANULOCYTES %) 0.1 0.0- 1.0 [facility] HospitalNeutrophils # (Auto)2018-07-07 05:57:00* Test Item Value Reference Range Interpretation Comments Neutrophils # (Auto) (test code = 751-8) 4.2 2.1-6.9 [facility] HospitalLymphocytes # (Auto)2018-07-07 05:57:00* Test Item Value Reference Range Interpretation Comments Lymphocytes # (Auto) (test code = 93584-3) 1.6 1.0-3.2 [facility] HospitalMonocytes # (Auto)2018-07-07 05:57:00* Test Item Value Reference Range Interpretation Comments Monocytes # (Auto) (test code = 742-7) 1.5 0.2-0.8 H [facility] HospitalEosinophils # (Auto)2018-07-07 05:57:00* Test Item Value Reference Range Interpretation Comments Eosinophils # (Auto) (test code = 711-2) 0.4 0.0-0.4 [facility] HospitalBasophils # (Auto)2018-07-07 05:57:00* Test Item Value Reference Range Interpretation Comments Basophils # (Auto) (test code = 704-7) 0.0 0.0-0.1 [facility] HospitalAbsolute Immature Granulocyte (auto 2018-07-07 05:57:00* Test Item Value Reference Range Interpretation Comments Absolute Immature Granulocyte (auto (zeenat t code = Absolute Immature Granulocyte (auto) 0.01 0-0.1 [facility] HospitalAmylase [id number] 04:08:00* Test Item Value Reference Range Interpretation Comments Amylase Level (test code = 1798-8) 48 25-125 [facility] HospitalLipase2019-04-05 04:08:00* Test Item Value Reference Range Interpretation Comments Lipase (test code = 3040-3) < 4 8-78 L [facility] HospitalAmylase Gcpcj1945-42-25 04:08:00* Test Item Value Reference Range Interpretation Comments Amylase Level (test code = 1798-8) 48 25-125 [facility] HospitalAmylase Dwxtq7267-47-62 04:08:00* Test Item Value Reference Range Interpretation Comments Amylase Level (test code = 1798-8) 48 25-125 [facility] HospitalAmylase Dhteh3103-45-23 04:08:00* Test Item Value Reference Range Interpretation Comments Amylase Level (test code = 1798-8) 48 25-125 [facility] HospitalAmylase Vzyre2172-50-40 04:08:00* Test Item Value Reference Range Interpretation Comments Amylase Level (test code = 1798-8) 48 25-125 [facility] HospitalAmylase Oownm1747-82-13 04:08:00* Test Item Value Reference Range Interpretation Comments Amylase Level (test code = 1798-8) 48 25-125 [facility] HospitalUrine [id number] 01:56:00* Test Item Value Reference Range Interpretation Comments Urine WBC (test code = 5821-4) 0-5 0-5 [facility] HospitalUrine [id number] 01:56:00* Test Item Value Reference Range Interpretation Comments Urine RBC (test code = 85645-0) 0-5 0-5 [facility] HospitalUrine Lbwkvjhr3388-40-20 01:56:00* Test Item Value Reference Range Interpretation Comments Urine Bacteria (test code = 00908-6) FEW NONE [facility] HospitalUrine Epithelial Mibji9069-57-07 01:56:00 * Test Item Value Reference Range Interpretation Comments Urine Epithelial Cells (test code = 81206-7) FEW NONE [facility] HospitalUrine Hhjad8820-71-81 01:56:00* Test Item Value Reference Range Interpretation Comments Urine Mucus (test code = 8247-9) FEW RARE H [facility] [id number] 01:56:00* Test Item Value Reference Range Interpretation Comments Urine WBC (test code = 5821-4) 0-5 0-5 [facility] [id number] 01:56:00* Test Item Value Reference Range Interpretation Comments Urine RBC (test code = 80951-2) 0-5 0-5 [facility] Cjbvxchu5219-03-80 01:56:00* Test Item Value Reference Range Interpretation Comments Urine Bacteria (test code = 14073-9) FEW [facility] Epithelial Xksgh5127-68-97 01:56:00 * Test Item Value Reference Range Interpretation Comments Urine Epithelial Cells (test code = 17768-0) FEW [facility] Gmvmq6573-72-49 01:56:00* Test Item Value Reference Range Interpretation Comments Urine Mucus (test code = 8247-9) FEW RARE H [facility] NJW5854-40-15 01:56:00* Test Item Value Reference Range Interpretation Comments Urine WBC (test code = 5821-4) 0-5 0-5 [facility] [id number] 01:56:00* Test Item Value Reference Range Interpretation Comments Urine RBC (test code = 04453-5) 0-5 0-5 [facility] Mcaboyph4348-23-25 01:56:00* Test Item Value Reference Range Interpretation Comments Urine Bacteria (test code = 55955-0) FEW [facility] Epithelial Dskgx7932-14-10 01:56:00 * Test Item Value Reference Range Interpretation Comments Urine Epithelial Cells (test code = 32638-8) FEW [facility] Sgyxz5489-48-61 01:56:00* Test Item Value Reference Range Interpretation Comments Urine Mucus (test code = 8247-9) FEW RARE H [facility] Ohqoj4246-68-68 01:56:00* Test Item Value Reference Range Interpretation Comments Urine Mucus (test code = 8247-9) FEW RARE H [facility] HospitalUrine Mwlen1948-85-84 01:56:00* Test Item Value Reference Range Interpretation Comments Urine Mucus (test code = 8247-9) FEW RARE H [facility] HospitalU[facility] Pbvdc2348-98-16 01:56:00* Test Item Value Reference Range Interpretation Comments Urine Mucus (test code = 8247-9) FEW RARE H [facility] HospitalUrine Bamji0921-97-64 01:47:00* Test Item Value Reference Range Interpretation Comments Urine Color (test code = 5778-6) YELLOW YELLOW [facility] HospitalU[facility] Onpbynl1450-35-41 01:47:00* Test Item Value Reference Range Interpretation Comments Urine Clarity (test code = 01999-8) CLEAR CLEAR [facility] Specific Dapwxvq2961-57-53 01:47:00 * Test Item Value Reference Range Interpretation Comments Urine Specific [place] (test code = 5811-5) 1.020 1.010-1.02 5 [facility] HospitalU[facility] [id number] 01:47:00* Test Item Value Reference Range Interpretation Comments Urine pH (test code = 49598-8) 8 5-7 H [facility] Leukocyte Fpwllbdl2683-98-68 01:47:00* Test Item Value Reference Range Interpretation Comments Urine Leukocyte Esterase (test code = 5799-2) NEGATIVE NEGATIVE [facility] Lcuhmsi4346-26-58 01:47:00* Test Item Value Reference Range Interpretation Comments Urine Nitrite (test code = 14679-5) NEGATIVE NEGATIVE [facility] Zxclntx4223-27-90 01:47:00* Test Item Value Reference Range Interpretation Comments Urine Protein (test code = 5804-0) 1+ NEGATIVE H [facility] HospitalUrine Glucose (UA)2018-07-02 01:47:00* Test Item Value Reference Range Interpretation Comments Urine Glucose (UA) (test code = 2349-9) NEGATIVE NEGATIVE [facility] Uiozjym6020-63-61 01:47:00* Test Item Value Reference Range Interpretation Comments Urine Ketones (test code = 65302-6) 2+ NEGATIVE H [facility] Pckfmcgzrklh8086-27-33 01:47:00* Test Item Value Reference Range Interpretation Comments Urine Urobilinogen (test code = 01138-8) 0.2 0.2-1 [facility] Kztabadix0921-99-20 01:47:00* Test Item Value Reference Range Interpretation Comments Urine Bilirubin (test code = 1978-6) 1+ NEGATIVE H Confirmatory test currently unavailable. False positive results may occur.[facility] Vbghf2192-46-39 01:47:00* Test Item Value Reference Range Interpretation Comments Urine Blood (test code = 70995-5) NEGATIVE NEGATIVE [facility] Wqvqa2374-91-75 01:47:00* Test Item Value Reference Range Interpretation Comments Urine Color (test code = 5778-6) YELLOW YELLOW [facility] Utoxqtt2048-72-61 01:47:00* Test Item Value Reference Range Interpretation Comments Urine Clarity (test code = 75362-2) CLEAR CLEAR [facility] Specific Jajldpn3361-21-80 01:47:00 * Test Item Value Reference Range Interpretation Comments Urine Specific [place] (test code = 5811-5) 1.020 1.010-1.02 5 [facility] [id number] 01:47:00* Test Item Value Reference Range Interpretation Comments Urine pH (test code = 25119-0) 8 5-7 H [facility] Leukocyte Wrjjppjx8028-46-75 01:47:00* Test Item Value Reference Range Interpretation Comments Urine Leukocyte Esterase (test code = 5799-2) NEGATIVE NEGATIVE [facility] Dkiyauc0783-14-66 01:47:00* Test Item Value Reference Range Interpretation Comments Urine Nitrite (test code = 90993-0) NEGATIVE NEGATIVE [facility] Mnbalpi7772-89-46 01:47:00* Test Item Value Reference Range Interpretation Comments Urine Protein (test code = 5804-0) 1+ NEGATIVE H [facility] Glucose (UA)2018-07-02 01:47:00* Test Item Value Reference Range Interpretation Comments Urine Glucose (UA) (test code = 2349-9) NEGATIVE NEGATIVE [facility] Xriqmvl3853-07-24 01:47:00* Test Item Value Reference Range Interpretation Comments Urine Ketones (test code = 85998-7) 2+ NEGATIVE H [facility] Oxpvvmbcwtwf2348-08-82 01:47:00* Test Item Value Reference Range Interpretation Comments Urine Urobilinogen (test code = 36032-4) 0.2 0.2-1 [facility] Wrzbwsnzs5247-86-21 01:47:00* Test Item Value Reference Range Interpretation Comments Urine Bilirubin (test code = 1978-6) 1+ NEGATIVE H Confirmatory test currently unavailable. False positive results may occur.[facility] Zlmbq9830-65-38 01:47:00* Test Item Value Reference Range Interpretation Comments Urine Blood (test code = 59576-3) NEGATIVE NEGATIVE [facility] Hjrzv8932-83-98 01:47:00* Test Item Value Reference Range Interpretation Comments Urine Color (test code = 5778-6) YELLOW YELLOW [facility] Ypbvsji0064-29-98 01:47:00* Test Item Value Reference Range Interpretation Comments Urine Clarity (test code = 17243-8) CLEAR CLEAR [facility] Specific Buexlow8996-30-57 01:47:00 * Test Item Value Reference Range Interpretation Comments Urine Specific [place] (test code = 5811-5) 1.020 1.010-1.02 5 [facility] [id number] 01:47:00* Test Item Value Reference Range Interpretation Comments Urine pH (test code = 28499-3) 8 5-7 H [facility] Leukocyte Dpmafogb8167-66-63 01:47:00* Test Item Value Reference Range Interpretation Comments Urine Leukocyte Esterase (test code = 5799-2) NEGATIVE NEGATIVE [facility] Ajzcxdl3594-93-55 01:47:00* Test Item Value Reference Range Interpretation Comments Urine Nitrite (test code = 97756-6) NEGATIVE NEGATIVE [facility] Iklfdtk6266-42-05 01:47:00* Test Item Value Reference Range Interpretation Comments Urine Protein (test code = 5804-0) 1+ NEGATIVE H [facility] Glucose (UA)2018-07-02 01:47:00* Test Item Value Reference Range Interpretation Comments Urine Glucose (UA) (test code = 2349-9) NEGATIVE NEGATIVE [facility] Fpwsexd7466-55-91 01:47:00* Test Item Value Reference Range Interpretation Comments Urine Ketones (test code = 56436-4) 2+ NEGATIVE H [facility] Htyvvqrwyzga7102-68-33 01:47:00* Test Item Value Reference Range Interpretation Comments Urine Urobilinogen (test code = 31602-2) 0.2 0.2-1 [facility] Gxulbizjj7266-35-29 01:47:00* Test Item Value Reference Range Interpretation Comments Urine Bilirubin (test code = 1978-6) 1+ NEGATIVE H Confirmatory test currently unavailable. False positive results may occur.[facility] Sysif2099-46-52 01:47:00* Test Item Value Reference Range Interpretation Comments Urine Blood (test code = 39408-4) NEGATIVE NEGATIVE [facility] [id number] 10:20:00 [place] [address] Patient Name: BREE LINDSAY MR #: [id number] : 1975 Age/Sex: 42/M Req #: [id number] Adm Physician: Ordered by: TAVIA GARCIA MD Report #: [id number] Location: US Room/Bed: Procedure: [id number] U S/US ABDOMEN COMPLETE Exam Date: Exam [...] 102 3 COPY TO: TAVIA GARCIA MD [id number] 05:55:00* Test Item Value Reference Range Interpretation Comments GLUBED (test code = GLUBED) 195 mg/dL 74-106 H Performed by certified derrick operator at [facility] IBYGGN5826-55-72 17:33:00* Test Item Value Reference Range Interpretation Comments GLUBED (test code = GLUBED) 151 mg/dL 74-106 H Performed by certified derrick operator at [facility] BASIC METABOLIC [id number] 15:46:00* Test Item Value Reference Range Interpretation [...] code = CA) 7.7 mg/dL 8.5-10.1 L [id number] 12:16:00* Test Item Value Reference Range Interpretation Comments GLUBED (test code = GLUBED) 136 mg/dL 74-106 H Performed by certified derrick operator at [facility] [id number] 07:53:00* Test Item Value Reference Range Interpretation Comments GLUBED (test code = GLUBED) 129 mg/dL 74-106 H Performed by certified derrick operator at [facility] COMPREHENSIVE METABOLIC [id number] 06:41:00* Test Item Value Reference Range Interpretation Comments SODIUM (test code = NA) 139 mmol/L 136-145 N POTASSIUM (test code = K) 2.7 mmol/L 3.5-5.1 [facility] azamts called to [id number] by [email or web address] 05/16/18 0636Critical results verified and [...] due to change in reagent. CBC W/AUTO [id number] 05:31:00* Test Item Value Reference Range Interpretation [...] code = NRBC#) 0.00 K/mm3 0.0-0.1 N [id number] 20:43:00* Test Item Value Reference Range Interpretation Comments GLUBED (test code = GLUBED) 122 mg/dL 74-106 H Performed by certified derrick operator at [facility] SJCZVH1141-09-40 17:15:00* Test Item Value Reference Range Interpretation Comments GLUBED (test code = GLUBED) 145 mg/dL 74-106 H Performed by certified derrick operator at [facility] IYTHWT6828-65-40 11:46:00* Test Item Value Reference Range Interpretation Comments GLUBED (test code = GLUBED) 228 mg/dL 74-106 H Performed by certified derrick operator at [facility] [id number] 07:49:00* Test Item Value Reference Range Interpretation Comments GLUBED (test code = GLUBED) 123 mg/dL 74-106 H Performed by certified derrick operator at [facility] COMPREHENSIVE METABOLIC [id number] 07:19:00* Test Item Value Reference Range Interpretation Comments SODIUM (test code = NA) 140 mmol/L 136-145 N POTASSIUM (test code = K) 2.9 mmol/L 3.5-5.1 L Re sults called to [id number] by [email or web address] 05/15/18 0716Critical results verified and read back [...] due to change in reagent. CBC W/AUTO [id number] 06:20:00* Test Item Value Reference Range Interpretation [...] code = NRBC#) 0.00 K/mm3 0.0-0.1 N [id number] 21:14:00* Test Item Value Reference Range Interpretation Comments GLUBED (test code = GLUBED) 152 mg/dL 74-106 H Performed by certified derrick operator at [facility] [id number] 17:16:00* Test Item Value Reference Range Interpretation Comments GLUBED (test code = GLUBED) 140 mg/dL 74-106 H Performed by certified derrick operator at [facility] MDAJHW4635-70-85 11:55:00* Test Item Value Reference Range Interpretation Comments GLUBED (test code = GLUBED) 236 mg/dL 74-106 H Performed by certified derrick operator at [facility] COMPREHENSIVE METABOLIC [id number] 08:50:00* Test Item Value Reference Range Interpretation [...] due to change in reagent. COMPREHENSIVE METABOLIC [id number] 08:38:00* Test Item Value Reference Range Interpretation [...] code = ALKP) IUnit/L 45-117 CBC W/AUTO [id number] 08:00:00* Test Item Value Reference Range Interpretation [...] DIFF REQUIRED (test code = MDIFF) NO [id number] 07:51:00* Test Item Value Reference Range Interpretation Comments GLUBED (test code = GLUBED) 210 mg/dL 74-106 H Performed by certified derrick operator at [facility] [id number] 20:06:00* Test Item Value Reference Range Interpretation Comments GLUBED (test code = GLUBED) 278 mg/dL 74-106 H Performed by certified derrick operator at [facility] [id number] 16:53:00* Test Item Value Reference Range Interpretation Comments GLUBED (test code = GLUBED) 236 mg/dL 74-106 H Performed by certified derrick operator at [facility] [id number] 11:31:00* Test Item Value Reference Range Interpretation Comments GLUBED (test code = GLUBED) 269 mg/dL 74-106 H Performed by certified derrick operator at [facility] [id number] 10:39:00* Test Item Value Reference Range Interpretation Comments GLUBED (test code = GLUBED) 298 mg/dL 74-106 H Performed by certified derrick operator at [facility] COMPREHENSIVE METABOLIC [id number] 06:29:00* Test Item Value Reference Range Interpretation [...] due to change in reagent. COMPREHENSIVE METABOLIC [id number] 06:10:00* Test Item Value Reference Range Interpretation [...] code = ALKP) IUnit/L 45-117 CBC W/AUTO [id number] 05:48:00* Test Item Value Reference Range Interpretation [...] DIFF REQUIRED (test code = MDIFF) NO [id number] 20:52:00* Test Item Value Reference Range Interpretation Comments GLUBED (test code = GLUBED) 238 mg/dL 74-106 H Performed by certified derrick operator at [facility] [id number] 15:54:00* Test Item Value Reference Range Interpretation Comments GLUBED (test code = GLUBED) 199 mg/dL 74-106 H Performed by certified derrick operator at [facility] [id number] 11:51:00* Test Item Value Reference Range Interpretation Comments GLUBED (test code = GLUBED) 265 mg/dL 74-106 H Performed by certified derrick operator at [facility] [id number] 08:20:00* Test Item Value Reference Range Interpretation Comments GLYCOSYLATED HEMOGLOBIN (HA1C) (test code = GLYHGB) 10.6 % HbA1 4. 8-6.0 H ESTIMATED AVERAGE GLUCOSE (test code = EAG) 258 MG/DL COMPREHENSIVE METABOLIC [id number] 08:11:00* Test Item Value Reference Range Interpretation [...] result is a direct measurement.========= THYROID STIMULATING [id number] 08:11:00* Test Item Value Reference Range Interpretation Comments THYROID STIMULATING HORMONE (test code = TSH) 1.020 uIU/mL 0.36-3.7 4 N TSH REFERENCE RANGES: EUTHYROID: 0.35 - 4.3 mIU/mL HYPO : > 5.5 mIU/mL HYPER : < 0.35 mIU/mL COMPREHENSIVE METABOLIC [id number] 07:53:00* Test Item Value Reference Range Interpretation [...] code = LDL) mg/dL 100-129 THYROID STIMULATING [id number] 07:53:00* Test Item Value Reference Range Interpretation Comments THYROID STIMULATING HORMONE (test code = TSH) uIU/mL 0.36-3.7 4 CBC W/AUTO [id number] 07:51:00* Test Item Value Reference Range Interpretation [...] DIFF REQUIRED (test code = MDIFF) NO [id number] 07:10:00* Test Item Value Reference Range Interpretation Comments GLUBED (test code = GLUBED) 350 mg/dL 74-106 H Performed by certified derrick operator at [facility] DRUGS OF ABUSE SCREEN [id number] 06:10:00* Test Item Value Reference Range Interpretation [...] code = [place]) NEGATIVE <300 ng/mL URINALYSIS [id number] 05:29:00* Test Item Value Reference Range Interpretation [...] Urine Source? Clean CatchDRUGS OF ABUSE SCREEN [id number] 05:12:00* Test Item Value Reference Range Interpretation [...] METHADONE (test code = [place]) <300 ng/mL [id number] 20:26:00* Test Item Value Reference Range Interpretation Comments GLUBED (test code = GLUBED) 285 mg/dL 74-106 H Performed by certified derrick operator at [facility] [id number] 13:32:00* Test Item Value Reference Range Interpretation Comments GLUBED (test code = GLUBED) 159 mg/dL 74-106 H Performed by certified derrick operator at [facility] BASIC METABOLIC [id number] 09:38:00* Test Item Value Reference Range Interpretation [...] CA) 8.9 mg/dL 8.5-10.1 N HEPATIC FUNCTION [id number] 09:38:00* Test Item Value Reference Range Interpretation [...] reference range due to change in reagent. [id number] 09:38:00* Test Item Value Reference Range Interpretation Comments LIPASE (test code = LIP) 20 U/L 73.0-393.0 L BASIC METABOLIC [id number] 09:30:00* Test Item Value Reference Range Interpretation [...] code = CA) mg/dL 8.5-10.1 HEPATIC FUNCTION [id number] 09:30:00* Test Item Value Reference Range Interpretation [...] TOTAL (test code = ALKP) IUnit/L 45-117 [id number] 09:30:00* Test Item Value Reference Range Interpretation Comments LIPASE (test code = LIP) U/L 73.0-393.0 CBC W/O [id number] 09:13:00* Test Item Value Reference Range Interpretation [...] code = MPV) 10.6 fL 6.7-11.0 N [id number] 07:28:00* Test Item Value Reference Range Interpretation Comments GLUBED (test code = GLUBED) 173 mg/dL 74-106 H Performed by certified derrick operator at [facility] [id number] 20:56:00* Test Item Value Reference Range Interpretation Comments GLUBED (test code = GLUBED) 181 mg/dL 74-106 H Performed by certified derrick operator at [facility] [id number] 16:11:00* Test Item Value Reference Range Interpretation Comments GLUBED (test code = GLUBED) 245 mg/dL 74-106 H Performed by certified derrick operator at [facility] [id number] 11:55:00* Test Item Value Reference Range Interpretation Comments GLUBED (test code = GLUBED) 309 mg/dL 74-106 H Performed by certified derrick operator at [facility] [id number] 08:03:00* Test Item Value Reference Range Interpretation Comments GLUBED (test code = GLUBED) 241 mg/dL 74-106 H Performed by certified derrick operator at [facility] [id number] 00:08:00* Test Item Value Reference Range Interpretation Comments GLUBED (test code = GLUBED) 175 mg/dL 74-106 H Performed by certified derrick operator at [facility] [id number] 20:00:00* Test Item Value Reference Range Interpretation Comments GLUBED (test code = GLUBED) 167 mg/dL 74-106 H Performed by certified derrick operator at [facility] [id number] 16:45:00* Test Item Value Reference Range Interpretation Comments GLUBED (test code = GLUBED) 208 mg/dL 74-106 H Performed by certified derrick operator at [facility] [id number] 16:01:00* Test Item Value Reference Range Interpretation Comments GLUBED (test code = GLUBED) 47 mg/dL 74-106 LL [facility]~ [id number] 11:44:00* Test Item Value Reference Range Interpretation Comments GLUBED (test code = GLUBED) 317 mg/dL 74-106 H Performed by certified derrick operator at [facility] [id number] 08:20:00* Test Item Value Reference Range Interpretation Comments GLUBED (test code = GLUBED) 271 mg/dL 74-106 H Performed by certified derrick operator at [facility] CBC W/AUTO [id number] 05:45:00* Test Item Value Reference Range Interpretation [...] = MDIFF) NO, ONLY SCAN NEEDED DIFFERENTIAL [id number] 05:45:00* Test Item Value Reference Range Interpretation Comments STAIN ACCEPTABILITY (test code = STN ACCEPTABLE) STAIN ACCEPTABLE POLYCHROMASIA (test code = POLC) 1+ HYPOCHROMIA (test code = HYPO) 1+ PLATELET ESTIMATE (test code = PLTEST) ADEQUATE PLATELET MORPHOLOGY (test code = PLTMORPH) NORMAL CBC W/AUTO [id number] 05:08:00* Test Item Value Reference Range Interpretation [...] = MDIFF) NO, ONLY SCAN NEEDED DIFFERENTIAL [id number] 05:08:00* Test Item Value Reference Range Interpretation Comments STAIN ACCEPTABILITY (test code = STN ACCEPTABLE) CABOT RINGS (test code = CAB) MORPHOLOGY COMMENT (test code = MOC) PLATELET ESTIMATE (test code = PLTEST) PLATELET MORPHOLOGY (test code = PLTMORPH) CBC W/AUTO [id number] 05:08:00* Test Item Value Reference Range Interpretation [...] = MDIFF) NO, ONLY SCAN NEEDED DIFFERENTIAL [id number] 05:08:00* Test Item Value Reference Range Interpretation Comments STAIN ACCEPTABILITY (test code = STN ACCEPTABLE) MORPHOLOGY COMMENT (test code = MOC) PLATELET ESTIMATE (test code = PLTEST) PLATELET MORPHOLOGY (test code = PLTMORPH) CBC W/AUTO [id number] 05:08:00* Test Item Value Reference Range Interpretation [...] = MDIFF) NO, ONLY SCAN NEEDED DIFFERENTIAL [id number] 05:08:00* Test Item Value Reference Range Interpretation Comments STAIN ACCEPTABILITY (test code = STN ACCEPTABLE) MORPHOLOGY COMMENT (test code = MOC) PLATELET ESTIMATE (test code = PLTEST) PLATELET MORPHOLOGY (test code = PLTMORPH) CBC W/AUTO [id number] 05:08:00* Test Item Value Reference Range Interpretation [...] = MDIFF) NO, ONLY SCAN NEEDED DIFFERENTIAL [id number] 05:08:00* Test Item Value Reference Range Interpretation Comments STAIN ACCEPTABILITY (test code = STN ACCEPTABLE) CABOT RINGS (test code = CAB) MORPHOLOGY COMMENT (test code = MOC) PLATELET ESTIMATE (test code = PLTEST) PLATELET MORPHOLOGY (test code = PLTMORPH) COMPREHENSIVE METABOLIC [id number] 05:04:00* Test Item Value Reference Range Interpretation [...] due to change in reagent. COMPREHENSIVE METABOLIC [id number] 04:54:00* Test Item Value Reference Range Interpretation [...] TOTAL (test code = ALKP) IUnit/L 45-117 [id number] 21:00:00* Test Item Value Reference Range Interpretation Comments GLUBED (test code = GLUBED) 334 mg/dL 74-106 H Performed by certified derrick operator at [facility] [id number] 16:10:00* Test Item Value Reference Range Interpretation Comments GLUBED (test code = GLUBED) 102 mg/dL 74-106 N Performed by certified derrick operator at [facility] [id number] 15:59:00* Test Item Value Reference Range Interpretation Comments GLUBED (test code = GLUBED) 339 mg/dL 74-106 H Performed by certified derrick operator at [facility] URINALYSIS [id number] 09:47:00* Test Item Value Reference Range Interpretation [...] 0-2 #/HPF 0-5 Urine Source? Clean CatchURINALYSIS [id number] 09:46:00* Test Item Value Reference Range Interpretation [...] HPF 0-5 Urine Source? Clean CatchBASIC METABOLIC [id number] 04:02:00* Test Item Value Reference Range Interpretation [...] CA) 9.3 mg/dL 8.5-10.1 N HEPATIC FUNCTION [id number] 04:02:00* Test Item Value Reference Range Interpretation [...] reference range due to change in reagent. [id number] 04:02:00* Test Item Value Reference Range Interpretation Comments LIPASE (test code = LIP) 22 U/L 73.0-393.0 L BASIC METABOLIC [id number] 03:53:00* Test Item Value Reference Range Interpretation [...] code = CA) mg/dL 8.5-10.1 HEPATIC FUNCTION [id number] 03:53:00* Test Item Value Reference Range Interpretation [...] TOTAL (test code = ALKP) IUnit/L 45-117 [id number] 03:53:00* Test Item Value Reference Range Interpretation Comments LIPASE (test code = LIP) U/L 73.0-393.0 CBC W/O [id number] 03:46:00* Test Item Value Reference Range Interpretation [...] code = MPV) 10.9 fL 6.7-11.0 N [id number] 17:23:00 RUN DATE: 12/16/17 [place] [facility] PAGE 1 RUN TIME: 1723 Specimen Inqui rhea RUN USER: INTERFACE PATIENT: BREE LINDSAY ACCT #: [id number] LOC: [facility] U #: [id number] AGE/SX: 42/M ROOM: 2046 [id number]/11/17YUNIEL DR: Olegario Diaz MD : 75 BED: A DIS: 12/13/17 STATUS: DIS IN TLOC: SPEC #: [id number] RECD: 12/14/17-1149 STATUS: SHAHRAM LUEVANO #: [id number] HUY: 12/11/17- SUBM DR: Kvng Izaguirre MD ENTERED: 12/14/17-1150 SP TYPE: STOMACH OTHR DR: Levi Natarajan i, MD ORDERED: GROSS COPIES TO: Kvng Izaguirre MD [address] [place] [address] Levi Lakhani MD [address] [place] [address] PROCEDURES: GROSS (12/15/17-1304 ) TISSUES: 1. GASTRIC [...] AND DYSPLASIA NEGATIVE FOR MALIGNANCY MYA/sm D (4) [phone], [phone] CONTINUED ON NEXT PAGE RUN DATE: 12/16/17 [place] - Lab PAGE 2 RUN TIME: 1723 Specimen Inquiry RUN USER: INTER FACE SPEC #: [id number] PATIENT: BREE LINDSAY #[id number] (Con tinued) MACROSCOPIC The first specimen is [...] measuring 0.2 cm each. GROSS PERFORMED AT [facility] [address] [place] [address] [phone])[phone] MICROSCOPIC MICROSCOPIC PERFORMED AT [facility] All of the stains, including any controls performed, hao aguirre [facility] [address] [place] [address] [phone])[phone] PERFORMING SITE Diagnosis performed at: [facility], [place] [address] [place], [place] [address] Signed SIGNATURE ON FILE Leigh Ann Fuller 12/16/17 1723 END OF REPORT
--- NOTE | 2020-02-09 00:19 | Emergency Department Note ---
History of Present Illnes History of Present Illness Chief Complaint: General Medicine Complaints History of Present Illness This is a 44 year old male diabetic with hx gastroparesis presents with 4 episodes of vomiting and nausea and abd pain since this AM. Sates symptoms are typical for gastroparesis flare-up. States averages about one episode a week lasting about a day. In process of getting workup for gastric pacemaker. Multiple visits for same here treated with IVF and IV antiemetics. No hematemesis. 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 Onset (how long ago): hour(s) Location: abdomen Quality: cramping Radiation: Denies non-radiation Severity: moderate ("not as bad" compared to typical episode he comes to ED f or) Onset quality: gradual Duration (how long): hour(s) Progression: worsening Chronicity: recurrent Context: Denies recent illness, Denies trauma/injury Relieving factors: other (improves with promethazine suppository and zofran ODT) Exacerbating factors: eating Associated symptoms: Reports nausea/vomiting; Denies chest pain, Denies cough, Denies fever/chills, Denies shortness of breath Treatments prior to arrival: other (zofran/promethazine) Past Medical/Family History Physician Review I have reviewed the patient's past medical and family history. Any updates have been documented here. Past Medical History Recent Fever: No Clinical Suspicion of Infectio: No New/Unexplained Change in Ment: No Past Medical History: Hypertension, Diabetes Other Medical History: GASTROPORESIS Peripheral Neuropathy MARIJUANA ABUSE Past Surgical History: Cholecysctectomy Other Surgery: L-FOOT Surgery - due to infection, seeing wound care Social History Any Illegal Drug Use: No Other Last Tetanus: UNKNOWN Review of Systems Review of Systems Constitutional: Denies chills, Denies fever EENTM: Denies nose congestion, Denies throat pain Cardiovascular: Denies chest pain Respiratory: Denies cough, Denies dyspnea Gastrointestinal: Reports abdominal pain, Reports nausea, Reports vomiting; Denies constipation, Denies diarrhea Genitourinary: Denies dysuria Musculoskeletal: Denies joint pain Integumentary: Denies rash Neurological: Denies headache Psychological: Denies anxiety Hematological/Lymphatic: Denies swollen glands Physical Exam Related Data Allergies: Coded Allergies: No Known Allergies (Unverified , 07/02/18) Triage Vital Signs Vital Signs Date Time Temp Pulse Resp B/P (MAP) Pulse Ox O2 Delivery O2 Flow Rate FiO2 01/19/20 16:08 97.5 96 20 163/102 98 Room Air Physical Exam CONSTITUTIONAL Constitutional: Present well-developed, Present well-nourished HENT HENT: Present normocephalic, Present atraumatic, Present oropharynx clear/moist, Present nose normal EYES Eyes: Reports PERRL, Reports conjunctivae normal NECK Neck: Present ROM normal PULMONARY Pulmonary: Present effort normal, Present breath sounds normal CARDIOVASCULAR Cardiovascular: Present regular rhythm, Present heart sounds normal, Present capillary refill normal, Present normal rate GASTROINTESTINAL Abdominal: Present soft, Present tender (diffue); Absent distension, Absent guarding, Absent mass, Absent rebound, Absent left CVA tenderness, Absent right CVA tenderness GENITOURINARY SKIN Skin: Present warm, Present dry MUSCULOSKELETAL Musculoskeletal: Present ROM normal NEUROLOGICAL Neurological: Present alert, Present oriented x 3, Present no gross motor or s ensory deficits PSYCHOLOGICAL Psychological: Present mood/affect normal, Present judgement normal Results Laboratory Lab results reviewed: Yes Laboratory comments WBC 9.4, HGB 12.7, HCT 40.1, PLT 111, CMP WNL. Assessment & Plan Medical Decision Making MDM Reviewed old charts: patient with multiple visits for similar complaints - about 3X a month. Patient presents with his typical symptoms of gastroparesis. Reassessment Reassessment time: 19:00 Reassessment Symptoms improved. Tolerating PO. Assessment & Plan Final Impression: (1) Diabetic gastroparesis associated with type 2 diabetes mellitus (2) Dehydration (3) Vomiting (4) Hypovolemia (5) Volume depletion Depart Disposition: HOME, SELF-CARE Last Vital Signs Date Time Temp Pulse Resp B/P (MAP) Pulse Ox O2 Delivery O2 Flow Rate FiO2 01/19/20 16:08 97.5 96 20 163/102 98 Room Air Home Meds Active Scripts Insulin Degludec (Tresiba) 100 Unit/1 Ml Vial, 25 UNITS SQ HS for diabetes, #1 BOTTLE 0 Refills Prov:YUMIKO LYNNE MD 02/07/20 Promethazine Hcl (PROMETHAZINE HCL) 25 Mg Tablet, 25 MG PO Q6H, #30 TAB Prov:TRENT FRANKLIN MD 02/04/20 Promethazine Hcl (PROMETHAZINE HCL) 6.25 Mg/5 Ml Syrup, 10 ML PO Q4H, #120 ML Prov:TRENT FRANKLIN MD 02/04/20 Reported Medications Ondansetron Hcl (ONDANSETRON HCL) 4 Mg Tablet, 4 MG SL Q6H PRN for NAUSEA 07/02/18 Insulin Glargine (LANTUS 3ML PEN) 100 Units/1 Ml Inj, 15 UNITS SQ HS 07/02/18 Lisinopril (LISINOPRIL) 5 Mg Tablet, 5 MG PO DAILY 07/02/18 Insulin Aspart (NOVOLOG) 100 Units/1 Ml Inj, 8 UNITS SQ TIDWM 07/02/18 Discontinued Scripts Promethazine Hcl* (PHENERGAN SUPP*) 25 Mg Supp, 1 SUPP [place] Q6H PRN for NAUSEA, #12 SUPP 0 Refills Prov:YUMIKO LYNNE MD 12/11/19 Promethazine Hcl (PROMETHAZINE HCL) 25 Mg Tablet, 25 MG PO Q6H, #20 TAB Prov:FILIBERTO ROSENTHAL MD 12/06/19 Promethazine Hcl (PROMETHAZINE HCL) 25 Mg Tablet, 25 MG PO Q6H PRN for nausea and vomiting, #20 TAB 0 Refills Prov:YUMIKO LYNNE MD 11/18/19 Promethazine Hcl (PROMETHAZINE HCL) 25 Mg Tablet, 25 MG PO Q6H PRN for nausea and vomiting, #20 TAB 0 Refills Prov:YUMIKO LYNNE MD 11/12/19 Acetaminophen With Codeine (TYLENOL WITH CODEINE #3 TABLET) 1 Each Tablet, 300 MG PO Q12H PRN for ABDOMINAL PAIN, #10 TAB Prov:JAREK LO NP 10/28/19 Promethazine Hcl (PROMETHAZINE HCL) 25 Mg Tablet, 25 MG PO Q6H for vomiting, #20 TAB Prov:FILIBERTO ROSENTHAL MD 09/21/19 Metoclopramide Hcl (REGLAN) 10 Mg Tablet, 1 TAB PO ACHS for 30 Days Before meals Prov:JAREK LO NP 11/25/18 Pantoprazole Sodium* (PROTONIX) 40 Mg Tablet.dr, 40 MG PO DAILY for 30 Days Prov:JAREK LO NP 11/25/18 NEIL GALLOWAY MD Jan 19, 2020 16:25
== END 2020-01-19 19:10 | disposition home or self-care (01) ==
LOC: FSED 16:10
DX: E11.43 Type 2 diabetes mellitus with diabetic autonomic (poly)neuropathy (principal); E86.1 Hypovolemia; R11.10 Vomiting, unspecified; I10 Essential (primary) hypertension
CPT/HCPCS: 80053; 85025; 99283; J2550

== ENCOUNTER 2020-02-04 16:48 | Emergency (ER) | payer MEDICARE ==
[~2020-02-04] VITALS: Ht 185.4 cm; Wt 95.3 kg
[2020-02-04] MEDS ORDERED: MORPHINE SULFATE INJ 4 MG/ML INJ 1ML IV STA (17:03)
[2020-02-04] MEDS ORDERED: SODIUM CHLORIDE 0.9% 1000ML 1,000 ML IV STA (17:03)
[2020-02-04] MEDS ORDERED: MORPHINE SULFATE INJ 4 MG/ML INJ 1ML ONE (17:10)
[2020-02-04] MEDS ORDERED: PROMETHAZINE HCL (IM) 25 MG/ML VIAL IM ONE (17:10)
[2020-02-04] MEDS ORDERED: SODIUM CHLORIDE 0.9% 1000ML 1,000 ML ONE (17:10)
[2020-02-04] MEDS ORDERED: PROMETHAZINE HC25 M1 PO (17:13)
[2020-02-04] MEDS ORDERED: PROMETHAZI6.25 MG/5 PO (17:13)
[2020-02-04] MEDS ORDERED: PROMETHAZINE 25MG/ NS 50ML (IV) IV ONE (17:15)
== END 2020-02-04 18:12 | disposition home or self-care (01) ==
LOC: FSED 17:09
DX: E11.65 Type 2 diabetes mellitus with hyperglycemia (principal); K31.84 Gastroparesis; R11.2 Nausea with vomiting, unspecified; R10.13 Epigastric pain; E86.0 Dehydration; I10 Essential (primary) hypertension; G62.9 Polyneuropathy, unspecified
CPT/HCPCS: 80053; 85025; 99284; J2270; J2550; J7030

== ENCOUNTER 2020-02-07 07:27 | Emergency (ER) | payer MEDICARE ==
[~2020-02-07] VITALS: Ht 185.4 cm; Wt 95.3 kg
[~2020-02-07 07:27] MED LIST changes: +PROMETHAZI6.25 MG/5 PO
[2020-02-07] MEDS ORDERED: PROMETHAZINE HCL (IM) 25 MG/ML VIAL IM ONE (08:15)
[2020-02-07] MEDS ORDERED: INSULIN REGULAR, HUMAN 100 UNIT/1 ML 3ML VIAL SQ ONE (10:00)
[2020-02-07] MEDS ORDERED: TRESIBA100 UNIT/1 SQ (10:04)
[2020-02-07] MEDS ORDERED: METOCLOPRAMIDE HCL 10 MG/2ML VIAL IM ONE (10:30)
[2020-02-07] MEDS ORDERED: ONDANSETRON HCL 4 MG ORAL DISINTEGRATING TAB PO ONE (10:30)
== END 2020-02-07 10:39 | disposition home or self-care (01) ==
LOC: FSED 07:50
DX: E11.43 Type 2 diabetes mellitus with diabetic autonomic (poly)neuropathy (principal); E11.65 Type 2 diabetes mellitus with hyperglycemia; K31.84 Gastroparesis; R10.13 Epigastric pain; G62.9 Polyneuropathy, unspecified; Z91.14 Patient's other noncompliance with medication regimen; I10 Essential (primary) hypertension
CPT/HCPCS: 36415; 74018; 80048; 82948; 99283

== ENCOUNTER 2020-04-03 13:10 | Emergency (ER) | payer MEDICARE ==
[~2020-04-03] VITALS: Ht 185.4 cm; Wt 88.5 kg
[~2020-04-03 13:10] MED LIST changes: +TRESIBA100 UNIT/1 SQ
[2020-04-03] MEDS ORDERED: MORPHINE SULFATE INJ 4 MG/ML INJ 1ML IV STA (13:59)
[2020-04-03] MEDS ORDERED: SODIUM CHLORIDE 0.9% 1000ML 1,000 ML IV STA ×2 (13:59)
[2020-04-03] MEDS ORDERED: FAMOTIDINE 20 MG/2 ML VIAL IV ONE ×2 (14:00→14:14)
[2020-04-03] MEDS ORDERED: PROMETHAZI6.25 MG/5 PO (14:12)
[2020-04-03] MEDS ORDERED: PROMETHAZINE HC25 M1 PO (14:12)
[2020-04-03] MEDS ORDERED: PROMETHAZINE HCL (IM) 25 MG/ML VIAL IM ONE (14:13)
[2020-04-03] MEDS ORDERED: SODIUM CHLORIDE 0.9% 1000ML 1,000 ML ONE (14:13)
[2020-04-03] MEDS ORDERED: MORPHINE SULFATE INJ 4 MG/ML INJ 1ML ONE (14:13)
[2020-04-03] MEDS ORDERED: PROMETHAZINE 25MG/ NS 50ML (IV) IV ONE (14:30)
[2020-04-03 15:22] VITALS: BP 160/79
[2020-04-04] MEDS ORDERED: REGLAN10 MG PO (12:01)
[2020-04-04] MEDS ORDERED: ULTRAM50 MG PO (12:01)
[2020-04-04] MEDS ORDERED: DICYCLOMINE HCL20 MG PO (12:02)
[2020-04-04] MEDS ORDERED: PANTOPRAZOLE SO40 MG PO (12:21)
== END 2020-04-03 15:52 | disposition home or self-care (01) ==
LOC: FSED 14:00
DX: E11.43 Type 2 diabetes mellitus with diabetic autonomic (poly)neuropathy (principal); K31.84 Gastroparesis; E86.0 Dehydration; I10 Essential (primary) hypertension
CPT/HCPCS: 80053; 85025; 96374; 96375; 96376; 99284; J2270; J2550; J7030

== ENCOUNTER 2020-04-04 06:13 | Observation (INO) | payer MEDICARE ==
[~2020-04-04] VITALS: Ht 185.4 cm; Wt 86.2 kg
[2020-04-04] MEDS ORDERED: SODIUM CHLORIDE 0.9% 1000ML 1,000 ML IV STA (06:46)
[2020-04-04] MEDS ORDERED: FAMOTIDINE 20 MG/2 ML VIAL IV ONE ×2 (07:00→07:23)
[2020-04-04] MEDS ORDERED: PROMETHAZINE 25MG/ NS 50ML (IV) IV ONE (07:00)
[2020-04-04] MEDS ORDERED: PROMETHAZINE HCL (IM) 25 MG/ML VIAL IM ONE (07:22)
[2020-04-04] MEDS ORDERED: SODIUM CHLORIDE 0.9% 1000ML 1,000 ML ONE (07:23)
[2020-04-04] MEDS ORDERED: KETOROLAC TROMETHAMINE 30 MG/ML VIAL ONE (07:24)
[2020-04-04] MEDS ORDERED: KETOROLAC TROMETHAMINE 30 MG/ML VIAL IV STA (07:25)
[2020-04-04] MEDS ORDERED: PROMETHAZINE HCL (IM) 25 MG/ML VIAL IM PRN (08:00)
[2020-04-04] MEDS ORDERED: ONDANSETRON HCL INJ 2MG/ML 2ML 2 MG/ML VIAL IV PRN ×2 (08:00→11:45)
[2020-04-04] MEDS: SODIUM CHLORIDE 0.9% 1000ML 1,000 ML IV SCH ×3 (08:34→16:02)
[2020-04-04 09:21] VITALS: BP 147/87
[2020-04-04] MEDS ORDERED: MORPHINE SULFATE INJ 2 MG/ML SYR IV PRN (10:00)
[2020-04-04 11:45] VITALS: BP 136/81
[2020-04-04] MEDS ORDERED: POLYETHYLENE GLYCOL 3350 17 GM PACK PO PRN (11:45)
[2020-04-04] MEDS ORDERED: ACETAMINOPHEN 650 MG SUPP PR PRN (11:45)
[2020-04-04] MEDS: METOCLOPRAMIDE HCL 10 MG/2ML VIAL IV SCH ×2 (11:54→16:18)
[2020-04-04] MEDS ORDERED: INSULIN LISPRO 100 UNIT/1 ML 3ML VIAL SQ SCH (12:00)
[2020-04-04] MEDS ORDERED: PROMETHAZINE HCL 6.25 MG/5 ML SYRUP PO SCH (12:00)
[2020-04-04] MEDS ORDERED: REGLAN10 MG PO (12:01)
[2020-04-04] MEDS ORDERED: ULTRAM50 MG PO (12:01)
[2020-04-04] MEDS ORDERED: DICYCLOMINE HCL20 MG PO (12:02)
[2020-04-04] MEDS ORDERED: PANTOPRAZOLE SO40 MG PO (12:21)
[2020-04-04 13:23] LABS: CHOL/HDL RATIO 3.8 (3.9-4.7); MAGNESIUM 1.4 MG/DL (1.3-2.1); PHOSPHORUS 3.4 MG/DL (2.3-4.7)
[2020-04-04 14:14] LABS: THYROID STIMULATING HORMONE 0.752 uIU/mL (0.350-4.940)
[2020-04-04 15:34] VITALS: BP 161/88
[2020-04-04] MEDS: DOCUSATE SODIUM 100 MG CAP PO SCH (16:18)
[2020-04-04] MEDS: FAMOTIDINE 20 MG/2 ML VIAL IV SCH (16:18)
[2020-04-04] MEDS ORDERED: MAGNESIUM SULFATE 2GM/50ML 50 ML IV ONE (18:30)
[2020-04-04 20:43] VITALS: BP 180/92
[2020-04-04 20:44] VITALS: BP 180/92
[2020-04-04] MEDS ORDERED: NON-FORMULARY MEDICATION (Insulin Degludec (Tresiba) 25 UNITS) SQ SCH (21:00)
[2020-04-04] MEDS ORDERED: INSULIN GLARGINE 100 UNITS/ML VIAL SQ SCH (21:00)
[2020-04-04] MEDS ORDERED: MELATONIN 5 MG TABLET PO PRN (21:00)
[2020-04-04] MEDS: METOPROLOL TARTRATE INJ 1 MG/ML VIAL IV PRN (21:30)
[2020-04-05] MEDS: METOCLOPRAMIDE HCL 10 MG/2ML VIAL IV SCH ×4 (00:13→18:34)
[2020-04-05 00:36] VITALS: BP 164/91
[2020-04-05] MEDS: SODIUM CHLORIDE 0.9% 1000ML 1,000 ML IV SCH ×3 (04:45→16:00)
[2020-04-05 04:56] VITALS: BP 158/78
[2020-04-05 05:17] LABS: BASOPHILS % 0.4 % (0.0-1.0); EOSINOPHILS # (AUTO) 0.1 (0.0-0.4); EOSINOPHILS % 0.7 % (0.0-6.0); HEMATOCRIT 33.8 % (38.2-49.6); HEMOGLOBIN 10.9 g/dL (14.0-18.0); LYMPHOCYTES # (AUTO) 1.5 (1.0-3.2); MEAN CORPUSCULAR HEMOGLOBIN 29.3 pg (28-32); MEAN CORPUSCULAR HGB CONC 32.2 g/dL (31-35); MEAN CORPUSCULAR VOLUME 90.9 fL (81-99); MONOCYTES # (AUTO) 0.7 (0.2-0.8); MONOCYTES % 8.9 % (4.4-11.3); NEUTROPHILS # (AUTO) 5.8 (2.1-6.9); NEUTROPHILS % 71.6 % (38.7-80.0); PLATELET COUNT 181 x10e3/uL (140-360); RED BLOOD COUNT 3.72 x10e6/uL (4.3-5.7); RED CELL DISTRIBUTION WIDTH 13.6 % (11.7-14.4)
[2020-04-05 05:55] LABS: ALANINE AMINOTRANSFERASE 14 IU/L (0-55); ALBUMIN 3.6 g/dL (3.5-5.0); ALBUMIN/GLOBULIN RATIO 1.2 (0.8-2.0); ALKALINE PHOSPHATASE 111 IU/L (40-150); ANION GAP 13.1 mmol/L (8-16); BLOOD UREA NITROGEN 16 mg/dL (7-26); BUN/CREATININE RATIO 12 (6-25); CALCIUM 8.2 mg/dL (8.4-10.2); CARBON DIOXIDE 27 mmol/L (22-29); CHLORIDE 104 mmol/L (98-107); CREATININE, SERUM 1.33 mg/dL (0.72-1.25); EST GLOMERULAR FILTRATION RATE > 60 ML/MIN (60-); GLUCOSE 168 mg/dL (74-118); POTASSIUM 4.1 mmol/L (3.5-5.1); SODIUM 140 mmol/L (136-145)
[2020-04-05 06:53] LABS: CLARITY,URINE CLEAR (CLEAR); COLOR,URINE YELLOW (YELLOW)
[2020-04-05 06:54] LABS: KETONES,URINE 2+ (NEGATIVE); LEUKOCYTE ESTERASE ,URINE NEGATIVE (NEGATIVE); NITRITE,URINE NEGATIVE (NEGATIVE); PROTEIN,URINE DIPSTICK 1+ (NEGATIVE); URINE UROBILINOGEN 0.2 mg/dL (0.2 - 1)
[2020-04-05 07:08] LABS: BACTERIA,URINE RARE /HPF; EPITHELIAL CELLS,URINE RARE /LPF; RBC,URINE 0-5 /HPF (0-5); WBC,URINE (MAN) 0-5 /HPF (0-5)
[2020-04-05 08:19] VITALS: BP 136/79
[2020-04-05] MEDS: LISINOPRIL 2.5 MG TAB PO SCH ×2 (08:22→15:50)
[2020-04-05] MEDS: DOCUSATE SODIUM 100 MG CAP PO SCH ×2 (08:22→17:00)
[2020-04-05] MEDS: FAMOTIDINE 20 MG/2 ML VIAL IV SCH ×2 (08:34→18:33)
[2020-04-05] MEDS ORDERED: LIDOCAINE HCL 2% LOCAL INJ 5 ML SDV VIAL INJ ONE (12:26)
[2020-04-05] MEDS ORDERED: PROPOFOL IV EMULSION 10 MG/ML 20 ML VIAL ONE (12:26)
[2020-04-05 12:31] VITALS: BP 192/103
[2020-04-05] MEDS: METOPROLOL TARTRATE INJ 1 MG/ML VIAL IV PRN (12:31)
[2020-04-05 13:30] VITALS: BP 143/92
[2020-04-05] MEDS ORDERED: CARAFATE1 GM PO (14:25)
[2020-04-05] MEDS ORDERED: SUCRALFATE 1 GM TAB PO SCH (16:30)
[2020-04-05] MEDS ORDERED: FENTANYL CITRATE/PF 100MCG/2 ML INJ ONE (17:38)
[2020-04-05] MEDS ORDERED: MIDAZOLAM HCL 2 MG/2 ML VIAL ONE (17:38)
== END 2020-04-05 18:35 | disposition home or self-care (01) ==
LOC: FSED 07:10 → ERHOLD 07:58 → MED/SURG 09:33
PROVIDERS: ADMIT Internal Medicine; ATTEND Internal Medicine
DX: E11.43 Type 2 diabetes mellitus with diabetic autonomic (poly)neuropathy (principal); K31.84 Gastroparesis; Z79.899 Other long term (current) drug therapy; I10 Essential (primary) hypertension; K27.9 Peptic ulcer, site unspecified, unspecified as acute or chronic, without hemorrhage or perforation; Z20.822 Contact with and (suspected) exposure to COVID-19
CPT/HCPCS: 36415 ×2; 43239; 80048; 80053; 80061; 80076; 81001; 82948 ×2; 83735 ×2; 84100; 84443; 85025 ×2; 88305; 88312; 96361; 96374; 96375; 96376; 99251; 99283; G0378 ×2; J1885; J2270; J2405; J2550; J2765 ×2; J3475; J7030; U0002; J2001; J2250; J3010

== ENCOUNTER 2020-06-26 15:11 | Emergency (ER) | payer MEDICARE ==
[~2020-06-26] VITALS: Ht 182.9 cm; Wt 85.3 kg
[~2020-06-26 15:11] MED LIST changes: +CARAFATE1 GM PO; +DICYCLOMINE HCL20 MG PO; +ULTRAM50 MG PO
[2020-06-26] MEDS: SODIUM CHLORIDE 0.9% 1000ML 1,000 ML IV STA (16:04)
[2020-06-26] MEDS: LORAZEPAM INJ 2 MG/ML VIAL IV ONE (16:07)
[2020-06-26] MEDS: ONDANSETRON HCL INJ 2MG/ML 2ML 2 MG/ML VIAL IV STA (16:08)
[2020-06-26] MEDS: PROMETHAZINE 12.5MG/ NACL 0.9% 12.5 MG/50 ML BAG IV PRN (16:10)
[2020-06-26] MEDS ORDERED: LORAZEPAM INJ 2 MG/ML VIAL ONE (16:14)
[2020-06-26] MEDS ORDERED: SODIUM CHLORIDE 0.9% 1000ML 1,000 ML ONE (16:15)
[2020-06-26] MEDS ORDERED: PROMETHAZINE HCL (IM) 25 MG/ML VIAL IM ONE (16:15)
[2020-06-26] MEDS ORDERED: ONDANSETRON HCL INJ 2MG/ML 2ML 2 MG/ML VIAL ONE (16:15)
[2020-06-26] MEDS: HYDRALAZINE HCL 20 MG/ML VIAL IV ONE (18:04)
[2020-06-26] MEDS ORDERED: HYDRALAZINE HCL 20 MG/ML VIAL ONE (18:08)
[2020-06-26 18:26] VITALS: BP 170/92
[2020-06-27] MEDS ORDERED: PHENERGAN SUPP25 MG (08:55)
[2020-06-27] MEDS ORDERED: TRESIBA100 UNIT/1 SQ (09:56)
[2020-06-27] MEDS ORDERED: NOVOLOG100 UNIT/1 SC (10:31)
[2020-06-28] MEDS ORDERED: LOPRESSOR25 MG PO (16:23)
[2020-06-28] MEDS ORDERED: KEFLEX125 MG/5 M PO (16:23)
[2020-06-28] MEDS ORDERED: FLAGYL500 MG PO (16:23)
== END 2020-06-26 18:35 | disposition home or self-care (01) ==
LOC: FSED 15:41
DX: R10.13 Epigastric pain (principal); K31.84 Gastroparesis; R11.2 Nausea with vomiting, unspecified; E11.42 Type 2 diabetes mellitus with diabetic polyneuropathy; I10 Essential (primary) hypertension
CPT/HCPCS: 80053; 81003; 82553; 84484; 85025; 96374; 96375; 96376; 99284; J0360; J2060; J2405; J2550; J7030

== ENCOUNTER 2020-06-27 05:30 | Observation (INO) | payer MEDICARE ==
[2020-06-27] VITALS (8 sets, daily range): BP systolic 133–162; BP diastolic 73–94
[~2020-06-27] VITALS: Ht 185.4 cm; Wt 83.1 kg
[2020-06-27] MEDS ORDERED: PROMETHAZINE HCL (IM) 25 MG/ML VIAL IM ONE ×2 (06:00→06:03)
[2020-06-27] MEDS: MORPHINE SULFATE INJ 4 MG/ML INJ 1ML IM PRN ×4 (06:00→23:18)
[2020-06-27] MEDS ORDERED: MORPHINE SULFATE INJ 4 MG/ML INJ 1ML ONE (06:03)
[2020-06-27] MEDS ORDERED: SODIUM CHLORIDE 0.9% 1000ML 1,000 ML IV STA (06:14)
[2020-06-27] MEDS ORDERED: SODIUM CHLORIDE 0.9% 1000ML 1,000 ML ONE (06:16)
[2020-06-27] MEDS ORDERED: PANTOPRAZOLE 40 MG 10ML VIAL IV STA (08:01)
[2020-06-27] MEDS ORDERED: SODIUM CHLORIDE FLUSH 10 ML SYR INJ PRN (08:15)
[2020-06-27] MEDS ORDERED: PHENERGAN SUPP25 MG (08:55)
[2020-06-27] MEDS: ONDANSETRON HCL INJ 2MG/ML 2ML 2 MG/ML VIAL IV PRN ×2 (09:02→13:32)
[2020-06-27] MEDS ORDERED: ONDANSETRON HCL INJ 2MG/ML 2ML 2 MG/ML VIAL ONE (09:07)
[2020-06-27] MEDS ORDERED: PANTOPRAZOLE 40 MG 10ML VIAL ONE (09:07)
[2020-06-27] MEDS ORDERED: TRESIBA100 UNIT/1 SQ (09:56)
[2020-06-27] MEDS: SODIUM CHLORIDE 0.9% 1000ML 1,000 ML IV SCH ×3 (10:19→23:19)
[2020-06-27] MEDS ORDERED: NOVOLOG100 UNIT/1 SC (10:31)
[2020-06-27] MEDS ORDERED: INSULIN GLARGINE 100 UNITS/ML VIAL SQ SCH (12:00)
[2020-06-27] MEDS: METOCLOPRAMIDE HCL 10 MG/2ML VIAL IV SCH ×3 (12:23→23:24)
[2020-06-27] MEDS: PANTOPRAZOL 40MG/SOD CHL 0.9% 50 ML IV SCH ×3 (12:23→23:18)
[2020-06-27] MEDS: INSULIN LISPRO 100 UNIT/1 ML 3ML VIAL SQ SCH ×2 (12:37→17:10)
[2020-06-27] MEDS: LISINOPRIL 2.5 MG TAB PO SCH (13:31)
[2020-06-27] MEDS: METOPROLOL TARTRATE 25 MG TAB PO SCH ×2 (13:31→21:17)
[2020-06-27] MEDS ORDERED: INSULIN LISPRO 100 UNIT/1 ML 3ML VIAL SQ SCH (16:30)
[2020-06-27] MEDS ORDERED: CEFTRIAXONE SOD 1 GM/50 ML BAG IV SCH (17:45)
[2020-06-27] MEDS: METRONIDAZOLE 500MG/NS 100ML 100 ML IV SCH (18:09)
[2020-06-27] MEDS: DEXTROSE 50% SYRINGE 50 ML IV PRN (19:09)
[2020-06-27] MEDS ORDERED: CEFTRIAXONE SOD 1 GM in SODIUM CHLORIDE 0.9% 50ML 50 ML IV SCH (19:45)
[2020-06-27] MEDS ORDERED: SODIUM CHLORIDE 0.9% 250ML 250 ML ONE (20:48)
[2020-06-27] MEDS ORDERED: METOPROLOL TARTRATE 25 MG TAB PO SCH (21:00)
[2020-06-28] MEDS: METRONIDAZOLE 500MG/NS 100ML 100 ML IV SCH ×2 (01:14→09:02)
[2020-06-28] MEDS: PANTOPRAZOL 40MG/SOD CHL 0.9% 50 ML IV SCH ×3 (04:32→15:19)
[2020-06-28] MEDS: SODIUM CHLORIDE 0.9% 1000ML 1,000 ML IV SCH (04:32)
[2020-06-28 05:16] VITALS: BP 132/77
[2020-06-28] MEDS: METOCLOPRAMIDE HCL 10 MG/2ML VIAL IV SCH ×2 (05:29→12:03)
[2020-06-28] MEDS: ONDANSETRON HCL INJ 2MG/ML 2ML 2 MG/ML VIAL IV PRN (05:29)
[2020-06-28] MEDS: MORPHINE SULFATE INJ 4 MG/ML INJ 1ML IM PRN ×2 (05:29→15:19)
[2020-06-28 06:09] LABS: BASOPHILS # (AUTO) 0.1 (0.0-0.1); BASOPHILS % 0.6 % (0.0-1.0); EOSINOPHILS # (AUTO) 0.1 (0.0-0.4); EOSINOPHILS % 0.7 % (0.0-6.0); HEMATOCRIT 32.1 % (38.2-49.6); HEMOGLOBIN 10.4 g/dL (14.0-18.0); LYMPHOCYTES # (AUTO) 2.1 (1.0-3.2); LYMPHOCYTES % 19.1 % (18.0-39.1); MEAN CORPUSCULAR HEMOGLOBIN 29.8 pg (28-32); MEAN CORPUSCULAR HGB CONC 32.4 g/dL (31-35); MONOCYTES # (AUTO) 1.2 (0.2-0.8); MONOCYTES % 10.4 % (4.4-11.3); NEUTROPHILS # (AUTO) 7.7 (2.1-6.9); NEUTROPHILS % 68.8 % (38.7-80.0); PLATELET COUNT 146 x10e3/uL (140-360); RED BLOOD COUNT 3.49 x10e6/uL (4.3-5.7); RED CELL DISTRIBUTION WIDTH 13.2 % (11.7-14.4)
[2020-06-28 06:31] LABS: ANION GAP 10.7 mmol/L (8-16); BLOOD UREA NITROGEN 19 mg/dL (7-26); BUN/CREATININE RATIO 16 (6-25); CALCIUM 8.3 mg/dL (8.4-10.2); CARBON DIOXIDE 27 mmol/L (22-29); CHLORIDE 106 mmol/L (98-107); CREATININE, SERUM 1.21 mg/dL (0.72-1.25); EST GLOMERULAR FILTRATION RATE > 60 ML/MIN (60-); GLUCOSE 203 mg/dL (74-118); POTASSIUM 3.7 mmol/L (3.5-5.1); SODIUM 140 mmol/L (136-145)
[2020-06-28 07:15] LABS: CHOL/HDL RATIO 4.4 (3.9-4.7); CHOLESTEROL 102 MD/DL (0-199); HDL CHOLESTEROL 23 MG/DL (40-60); LDL CHOLESTEROL 64 MG/DL (60-130); TRIGLYCERIDES 74 MG/DL (0-149)
[2020-06-28 08:45] VITALS: BP 155/55
[2020-06-28] MEDS ORDERED: PANTOPRAZOLE 40 MG 10ML VIAL IV SCH (09:00)
[2020-06-28] MEDS ORDERED: LISINOPRIL 2.5 MG TAB PO SCH (09:00)
[2020-06-28 09:02] VITALS: BP 155/95
[2020-06-28] MEDS: METOPROLOL TARTRATE 25 MG TAB PO SCH (09:03)
[2020-06-28] MEDS: LISINOPRIL 2.5 MG TAB PO SCH (09:03)
[2020-06-28 12:09] VITALS: BP 155/94
[2020-06-28 16:12] VITALS: BP 168/98
[2020-06-28] MEDS ORDERED: KEFLEX125 MG/5 M PO (16:23)
[2020-06-28] MEDS ORDERED: LOPRESSOR25 MG PO (16:23)
[2020-06-28] MEDS ORDERED: FLAGYL500 MG PO (16:23)
[2020-06-28 16:44] VITALS: BP 157/90
== END 2020-06-28 17:38 | disposition home or self-care (01) ==
LOC: FSED 05:35 → ERHOLD 08:02 → MED/SURG3 09:45
PROVIDERS: ADMIT Internal Medicine; ATTEND Internal Medicine
DX: A04.9 Bacterial intestinal infection, unspecified (principal); E11.43 Type 2 diabetes mellitus with diabetic autonomic (poly)neuropathy; K31.84 Gastroparesis; I10 Essential (primary) hypertension; Z20.822 Contact with and (suspected) exposure to COVID-19
CPT/HCPCS: 36415 ×2; 80048 ×2; 80061; 80076; 82948 ×2; 83036; 85025 ×2; 96372; 96374; 96376; 99284; C9113; G0378 ×2; J0696; J2270 ×2; J2405 ×2; J2550; J2765 ×2; J7030; J7050; J7799; U0002

== ENCOUNTER 2020-06-29 09:36 | Emergency (ER) | payer MEDICARE ==
[~2020-06-29] VITALS: Ht 185.4 cm; Wt 84.0 kg
[~2020-06-29 09:36] MED LIST changes: +FLAGYL500 MG PO; +KEFLEX125 MG/5 M PO; +LOPRESSOR25 MG PO; +NOVOLOG100 UNIT/1 SC; +PHENERGAN SUPP25 MG
[2020-06-29] MEDS ORDERED: SODIUM CHLORIDE 0.9% 1000ML 1,000 ML IV SCH ×2 (10:30→13:00)
[2020-06-29] MEDS ORDERED: LABETALOL HCL 5 MG/ML 20ML VIAL IV ONE (10:30)
[2020-06-29] MEDS ORDERED: PROMETHAZINE 25MG/ NS 50ML (IV) IV ONE (10:30)
[2020-06-29] MEDS ORDERED: PROMETHAZINE HCL (IM) 25 MG/ML VIAL IM ONE (10:38)
[2020-06-29] MEDS ORDERED: FAMOTIDINE 20 MG/2 ML VIAL IV ONE (10:38)
[2020-06-29] MEDS ORDERED: METOCLOPRAMIDE HCL 10 MG/2ML VIAL IV ONE (11:00)
[2020-06-29] MEDS ORDERED: ACETAMINOPHEN 325 MG TAB ONE (12:36)
[2020-06-29] MEDS ORDERED: ACETAMINOPHEN 325 MG TAB PO ONE (12:45)
[2020-06-29] MEDS ORDERED: SODIUM CHLORIDE 0.9% 1000ML 1,000 ML ONE (13:52)
[2020-06-29 15:39] VITALS: BP 163/89
[2020-06-30] MEDS ORDERED: FAMOTIDINE 20 MG/2 ML VIAL IV SCH (09:00)
== END 2020-06-29 15:39 | disposition home or self-care (01) ==
LOC: FSED 10:12
DX: E11.65 Type 2 diabetes mellitus with hyperglycemia (principal); E11.43 Type 2 diabetes mellitus with diabetic autonomic (poly)neuropathy; K31.84 Gastroparesis; R50.9 Fever, unspecified; R11.2 Nausea with vomiting, unspecified; I10 Essential (primary) hypertension; K21.9 Gastro-esophageal reflux disease without esophagitis
CPT/HCPCS: 71046; 80048; 81003; 85025; 96374; 96375; 99284; J2550; J3490; J7030

== ENCOUNTER 2020-08-21 10:39 | Emergency (ER) | payer MEDICARE ==
[~2020-08-21] VITALS: Ht 190.5 cm; Wt 81.6 kg
[2020-08-21] MEDS ORDERED: SODIUM CHLORIDE 0.9% 1000ML 1,000 ML ONE (11:00)
[2020-08-21] MEDS ORDERED: FAMOTIDINE 20 MG/2 ML VIAL IV ONE (11:00)
[2020-08-21] MEDS ORDERED: FAMOTIDINE 20 MG/2 ML VIAL IV STA (11:00)
[2020-08-21] MEDS ORDERED: METOCLOPRAMIDE HCL 10 MG/2ML VIAL IV ONE (11:00)
[2020-08-21] MEDS ORDERED: SODIUM CHLORIDE 0.9% 1000ML 1,000 ML IV STA (11:00)
[2020-08-21] MEDS ORDERED: METOCLOPRAMIDE HCL 10 MG/2ML VIAL ONE ×2 (11:00→11:01)
[2020-08-21] MEDS ORDERED: LABETALOL HCL 5 MG/ML 20ML VIAL IV STA (11:00)
[2020-08-21] MEDS ORDERED: KETOROLAC TROMETHAMINE 30 MG/ML VIAL IV STA (11:14)
[2020-08-21] MEDS ORDERED: PHENERGAN SUPP25 MG PR (11:57)
[2020-08-21] MEDS ORDERED: PROMETHAZINE 12.5MG/ NACL 0.9% 12.5 MG/50 ML BAG IV ONE (12:00)
[2020-08-21] MEDS ORDERED: PROMETHAZINE HCL (IM) 25 MG/ML VIAL IM ONE (12:04)
== END 2020-08-21 12:32 | disposition home or self-care (01) ==
LOC: FSED 10:45
DX: R11.2 Nausea with vomiting, unspecified (principal); I10 Essential (primary) hypertension; E11.9 Type 2 diabetes mellitus without complications; K21.9 Gastro-esophageal reflux disease without esophagitis; Z86.39 Personal history of other endocrine, nutritional and metabolic disease
CPT/HCPCS: 99283; J1885; J2550; J2765; J7030

== ENCOUNTER 2020-09-28 08:55 | Emergency (ER) | payer MEDICARE ==
[~2020-09-28] VITALS: Ht 185.4 cm; Wt 83.9 kg
[2020-09-28] MEDS ORDERED: FAMOTIDINE 20 MG/2 ML VIAL IV STA (09:40)
[2020-09-28] MEDS ORDERED: SODIUM CHLORIDE 0.9% 1000ML 1,000 ML IV SCH (09:45)
[2020-09-28] MEDS ORDERED: PROMETHAZINE 25MG/ NS 50ML (IV) IV ONE (09:45)
[2020-09-28] MEDS ORDERED: PROMETHAZINE HCL (IM) 25 MG/ML VIAL IM ONE (10:07)
[2020-09-28] MEDS ORDERED: SODIUM CHLORIDE 0.9% 50ML 50 ML ONE (10:08)
[2020-09-28] MEDS ORDERED: HALOPERIDOL LACTATE 5 MG/ML VIAL IM ONE (11:15)
[2020-09-28] MEDS ORDERED: HALOPERIDOL LACTATE 5 MG/ML VIAL ONE (11:16)
== END 2020-09-28 11:34 | disposition home or self-care (01) ==
LOC: FSED 09:30
DX: R11.2 Nausea with vomiting, unspecified (principal); E11.43 Type 2 diabetes mellitus with diabetic autonomic (poly)neuropathy; K31.84 Gastroparesis; I10 Essential (primary) hypertension; K21.9 Gastro-esophageal reflux disease without esophagitis
CPT/HCPCS: 80048; 80076; 85025; 99283; J1630; J2550; J7030

== ENCOUNTER 2020-12-17 11:53 | Emergency (ER) | payer MEDICARE ==
[~2020-12-17] VITALS: Ht 185.4 cm; Wt 84.6 kg
[2020-12-17] MEDS ORDERED: SODIUM CHLORIDE 0.9% 1000ML 1,000 ML IV STA ×2 (12:32)
[2020-12-17] MEDS ORDERED: PROMETHAZINE 25MG/ NS 50ML (IV) IV ONE (12:45)
[2020-12-17] MEDS ORDERED: DIPHENHYDRAMINE HCL INJ 50 MG/ML VIAL IV ONE (12:45)
[2020-12-17] MEDS ORDERED: FAMOTIDINE 20 MG/2 ML VIAL IV ONE ×2 (12:45→12:50)
[2020-12-17] MEDS ORDERED: DIPHENHYDRAMINE HCL INJ 50 MG/ML VIAL ONE (12:49)
[2020-12-17] MEDS ORDERED: SODIUM CHLORIDE 0.9% 50ML 50 ML ONE (12:49)
[2020-12-17] MEDS ORDERED: SODIUM CHLORIDE 0.9% 1000ML 2,000 ML ONE (12:49)
[2020-12-17] MEDS ORDERED: PROMETHAZINE HCL (IM) 25 MG/ML VIAL IM ONE (12:49)
[2020-12-17] MEDS ORDERED: PHENERGAN SUPP25 MG PR (13:26)
[2020-12-17] MEDS ORDERED: PROMETHAZINE HC25 M1 PO (13:26)
[2020-12-17] MEDS ORDERED: PANTOPRAZOLE SO40 MG PO (13:26)
[2020-12-17] MEDS ORDERED: ONDANSETRON HCL INJ 2MG/ML 2ML 2 MG/ML VIAL IV ONE (14:45)
== END 2020-12-17 15:28 | disposition home or self-care (01) ==
LOC: FSED 11:59
DX: E11.43 Type 2 diabetes mellitus with diabetic autonomic (poly)neuropathy (principal); E11.65 Type 2 diabetes mellitus with hyperglycemia; K31.84 Gastroparesis; I10 Essential (primary) hypertension; K21.9 Gastro-esophageal reflux disease without esophagitis; F17.210 Nicotine dependence, cigarettes, uncomplicated
CPT/HCPCS: 80053; 81003; 85025; 96374; 96375; 99283; J1200; J2405; J2550; J7030

== ENCOUNTER 2020-12-18 02:54 | Inpatient (IN) | payer MEDICARE ==
[~2020-12-18] VITALS: Ht 185.4 cm; Wt 84.4 kg
[2020-12-18] MEDS ORDERED: PROMETHAZINE HCL (IM) 25 MG/ML VIAL IM ONE ×2 (03:15→03:23)
[2020-12-18] MEDS ORDERED: SODIUM CHLORIDE 0.9% 1000ML 1,000 ML IV STA (03:41)
[2020-12-18] MEDS ORDERED: DIPHENHYDRAMINE HCL INJ 50 MG/ML VIAL IV PRN (03:45)
[2020-12-18] MEDS ORDERED: HYDRALAZINE HCL 20 MG/ML VIAL IV PRN (03:45)
[2020-12-18] MEDS ORDERED: PROMETHAZINE HCL (IM) 25 MG/ML VIAL IM PRN (03:45)
[2020-12-18] MEDS ORDERED: ONDANSETRON HCL INJ 2MG/ML 2ML 2 MG/ML VIAL IV PRN (03:45)
[2020-12-18] MEDS ORDERED: INSULIN REGULAR, HUMAN 100 UNIT/1 ML IV ONE (04:00)
[2020-12-18] MEDS ORDERED: DEXTROSE 50% SYRINGE 50 ML IV PRN ×3 (04:00→09:45)
[2020-12-18] MEDS: INSULIN REGULAR, HUMAN 100 UNIT/1 ML SQ SCH ×4 (07:30→21:49)
[2020-12-18] MEDS: SODIUM CHLORIDE 0.9% 1000ML 1,000 ML IV SCH ×3 (07:41→23:01)
[2020-12-18] MEDS ORDERED: SIMETHICONE 80 MG CHEW PO PRN (09:45)
[2020-12-18] MEDS ORDERED: ACETAMINOPHEN 325 MG TAB PO PRN (09:45)
[2020-12-18] MEDS ORDERED: DOCUSATE SODIUM 100 MG CAP PO PRN (09:45)
[2020-12-18] MEDS ORDERED: POTASSIUM CHLORIDE 20 MEQ TAB CR PO PRN (09:45)
[2020-12-18] MEDS ORDERED: LIDOCAINE 4% PATCH TP PRN (09:45)
[2020-12-18] MEDS ORDERED: ALBUTEROL/IPRATROPIUM 3 ML NEB NEB PRN (09:45)
[2020-12-18] MEDS ORDERED: DIPHENHYDRAMINE HCL 25 MG CAP PO PRN (09:45)
[2020-12-18] MEDS: FAMOTIDINE 20 MG/2 ML VIAL IV SCH ×2 (10:46→15:09)
[2020-12-18] MEDS: HYDRALAZINE HCL 20 MG/ML VIAL IV PRN ×2 (10:50→17:02)
[2020-12-18] MEDS ORDERED: METOCLOPRAMIDE HCL 10 MG/2ML VIAL IV SCH (11:00)
[2020-12-18] MEDS: SUCRALFATE 1 GM/10 ML SUSP NG SCH ×3 (11:02→21:48)
[2020-12-18] MEDS: KETOROLAC TROMETHAMINE 30 MG/ML VIAL IV SCH ×3 (11:03→23:46)
[2020-12-18 12:18] LABS: ALBUMIN 3.8 g/dL (3.5-5.0); ALBUMIN/GLOBULIN RATIO 1.2 (0.8-2.0); ANION GAP 17.9 mmol/L (8-16); CALCIUM 8.5 mg/dL (8.4-10.2); CREATININE, SERUM 1.33 mg/dL (0.72-1.25); POTASSIUM 3.9 mmol/L (3.5-5.1)
[2020-12-18 14:30] VITALS: BP 166/94
[2020-12-18] MEDS: DICYCLOMINE HCL 20 MG TAB PO SCH ×2 (15:09→21:48)
[2020-12-18] MEDS: TRAMADOL HCL 50 MG TAB PO PRN ×2 (15:09→21:50)
[2020-12-18 15:11] VITALS: BP 166/94
[2020-12-18 15:18] VITALS: BP 166/94
[2020-12-18 16:00] VITALS: BP 187/99
[2020-12-18] MEDS: METOCLOPRAMIDE HCL 10 MG/2ML VIAL IV SCH ×2 (16:57→23:46)
[2020-12-18 20:00] VITALS: BP 146/81
[2020-12-18 20:40] VITALS: BP 146/81
[2020-12-18] MEDS ORDERED: MELATONIN 5 MG TABLET PO PRN (21:00)
[2020-12-18] MEDS: METOPROLOL TARTRATE 25 MG TAB PO SCH (21:48)
[2020-12-18] MEDS: ONDANSETRON HCL INJ 2MG/ML 2ML 2 MG/ML VIAL IV PRN (21:50)
[2020-12-19] VITALS: BP 153/90
[2020-12-19 04:00] VITALS: BP 177/99
[2020-12-19] MEDS: METOCLOPRAMIDE HCL 10 MG/2ML VIAL IV SCH ×3 (05:16→16:56)
[2020-12-19] MEDS: KETOROLAC TROMETHAMINE 30 MG/ML VIAL IV SCH ×3 (05:17→16:57)
[2020-12-19 06:27] LABS: BASOPHILS # (AUTO) 0.1 (0.0-0.1); BASOPHILS % 0.6 % (0.0-1.0); EOSINOPHILS % 0.3 % (0.0-6.0); HEMATOCRIT 33.4 % (38.2-49.6); HEMOGLOBIN 10.4 g/dL (14.0-18.0); LYMPHOCYTES # (AUTO) 1.4 (1.0-3.2); LYMPHOCYTES % 11.8 % (18.0-39.1); MEAN CORPUSCULAR HEMOGLOBIN 29.4 pg (28-32); MEAN CORPUSCULAR HGB CONC 31.1 g/dL (31-35); MEAN CORPUSCULAR VOLUME 94.4 fL (81-99); MONOCYTES # (AUTO) 1.2 (0.2-0.8); MONOCYTES % 10.1 % (4.4-11.3); NEUTROPHILS # (AUTO) 9.2 (2.1-6.9); NEUTROPHILS % 76.8 % (38.7-80.0); PLATELET COUNT 178 x10e3/uL (140-360); RED BLOOD COUNT 3.54 x10e6/uL (4.3-5.7); RED CELL DISTRIBUTION WIDTH 13.6 % (11.7-14.4)
[2020-12-19 07:09] LABS: ANION GAP 12.8 mmol/L (8-16); CALCIUM 8.3 mg/dL (8.4-10.2); CREATININE, SERUM 1.35 mg/dL (0.72-1.25); POTASSIUM 3.8 mmol/L (3.5-5.1)
[2020-12-19] MEDS: SODIUM CHLORIDE 0.9% 1000ML 1,000 ML IV SCH ×2 (07:42→16:56)
[2020-12-19] MEDS: ONDANSETRON HCL INJ 2MG/ML 2ML 2 MG/ML VIAL IV PRN (07:43)
[2020-12-19 08:03] VITALS: BP 176/105
[2020-12-19 08:17] VITALS: BP 117/69
[2020-12-19] MEDS ORDERED: PANTOPRAZOLE SOD 40 MG TABEC PO SCH (09:00)
[2020-12-19] MEDS: FAMOTIDINE 20 MG/2 ML VIAL IV SCH ×2 (09:15→16:56)
[2020-12-19] MEDS: SUCRALFATE 1 GM/10 ML SUSP NG SCH ×4 (09:15→21:00)
[2020-12-19] MEDS: METOPROLOL TARTRATE 25 MG TAB PO SCH ×2 (09:16→21:00)
[2020-12-19] MEDS: DICYCLOMINE HCL 20 MG TAB PO SCH ×3 (09:16→21:00)
[2020-12-19] MEDS: LISINOPRIL 2.5 MG TAB PO SCH (09:16)
[2020-12-19] MEDS: INSULIN REGULAR, HUMAN 100 UNIT/1 ML SQ SCH ×4 (10:07→21:00)
[2020-12-19 20:00] VITALS: BP 160/86
[2020-12-19 22:07] VITALS: BP 160/86
[2020-12-20] VITALS: BP 171/94
[2020-12-20] MEDS: SODIUM CHLORIDE 0.9% 1000ML 1,000 ML IV SCH ×3 (00:07→12:20)
[2020-12-20 04:00] VITALS: BP 170/96
[2020-12-20 05:20] LABS: BASOPHILS % 0.4 % (0.0-1.0); EOSINOPHILS % 0.4 % (0.0-6.0); HEMATOCRIT 30.7 % (38.2-49.6); HEMOGLOBIN 10.1 g/dL (14.0-18.0); LYMPHOCYTES # (AUTO) 1.7 (1.0-3.2); LYMPHOCYTES % 17.4 % (18.0-39.1); MEAN CORPUSCULAR HEMOGLOBIN 29.8 pg (28-32); MEAN CORPUSCULAR HGB CONC 32.9 g/dL (31-35); MEAN CORPUSCULAR VOLUME 90.6 fL (81-99); MONOCYTES % 9.7 % (4.4-11.3); NEUTROPHILS # (AUTO) 7.1 (2.1-6.9); NEUTROPHILS % 71.8 % (38.7-80.0); PLATELET COUNT 162 x10e3/uL (140-360); RED BLOOD COUNT 3.39 x10e6/uL (4.3-5.7); RED CELL DISTRIBUTION WIDTH 12.9 % (11.7-14.4)
[2020-12-20] MEDS: METOCLOPRAMIDE HCL 10 MG/2ML VIAL IV SCH ×3 (05:50→12:20)
[2020-12-20] MEDS: KETOROLAC TROMETHAMINE 30 MG/ML VIAL IV SCH ×2 (05:51)
[2020-12-20 06:04] LABS: ANION GAP 12.3 mmol/L (8-16); CALCIUM 7.9 mg/dL (8.4-10.2); CREATININE, SERUM 1.2 mg/dL (0.72-1.25); POTASSIUM 3.3 mmol/L (3.5-5.1)
[2020-12-20 07:52] VITALS: BP 179/77
[2020-12-20] MEDS: DICYCLOMINE HCL 20 MG TAB PO SCH (08:32)
[2020-12-20] MEDS: METOPROLOL TARTRATE 25 MG TAB PO SCH (08:32)
[2020-12-20] MEDS: SUCRALFATE 1 GM/10 ML SUSP NG SCH ×2 (08:32→11:52)
[2020-12-20] MEDS: FAMOTIDINE 20 MG/2 ML VIAL IV SCH (08:32)
[2020-12-20] MEDS: LISINOPRIL 2.5 MG TAB PO SCH (08:32)
[2020-12-20 08:57] VITALS: BP 179/77
[2020-12-20] MEDS: INSULIN REGULAR, HUMAN 100 UNIT/1 ML SQ SCH ×2 (09:35→12:40)
[2020-12-20 11:33] VITALS: BP 170/97
[2020-12-20] MEDS ORDERED: POTASSIUM CHLORIDE 20 MEQ TAB CR PO ONE (12:45)
== END 2020-12-20 15:44 | disposition home or self-care (01) | DRG 74 ==
LOC: FSED 03:03 → ERHOLD 03:41 → MED/SURG3 14:36 → OBSVTOIN 12-20 13:18
PROVIDERS: ADMIT Internal Medicine; ATTEND Internal Medicine
DX: E11.43 Type 2 diabetes mellitus with diabetic autonomic (poly)neuropathy (principal); K31.84 Gastroparesis; E86.0 Dehydration; Z76.5 Malingerer [conscious simulation]; Z20.822 Contact with and (suspected) exposure to COVID-19; Z79.4 Long term (current) use of insulin
CPT/HCPCS: 36415; 74176; 80048; 80053; 82948; 83690; 83735; 84484; 85025; 96360; 99284; G0378; J0360; J1817; J1885; J2405; J2550; J2765; J7030; U0002

== ENCOUNTER 2020-12-22 08:34 | Emergency (ER) | payer MEDICARE ==
[~2020-12-22] VITALS: Ht 185.4 cm; Wt 83.9 kg
[2020-12-22] MEDS ORDERED: ONDANSETRON HCL 4 MG ORAL DISINTEGRATING TAB PO ONE (08:45)
[2020-12-22] MEDS ORDERED: PROMETHAZINE HCL (IM) 25 MG/ML VIAL IM ONE ×2 (08:45→09:04)
[2020-12-22] MEDS ORDERED: KETOROLAC TROMETHAMINE 30 MG/ML VIAL IM ONE (08:45)
[2020-12-22] MEDS ORDERED: PHENERGAN SUPP25 MG PR (08:51)
[2020-12-22] MEDS ORDERED: PROMETHAZI6.25 MG/5 PO (08:51)
[2020-12-22] MEDS ORDERED: KETOROLAC TROMETHAMINE 30 MG/ML VIAL ONE (09:04)
[2020-12-22] MEDS ORDERED: ONDANSETRON HCL 4 MG ORAL DISINTEGRATING TAB ONE (09:04)
== END 2020-12-22 09:11 | disposition home or self-care (01) ==
LOC: FSED 08:44
DX: E11.43 Type 2 diabetes mellitus with diabetic autonomic (poly)neuropathy (principal); K31.84 Gastroparesis; E11.65 Type 2 diabetes mellitus with hyperglycemia; I10 Essential (primary) hypertension; K21.9 Gastro-esophageal reflux disease without esophagitis
CPT/HCPCS: 99282; J1885; J2550; Q0162

== ENCOUNTER 2021-02-25 12:15 | Emergency (ER) | payer MEDICARE ==
[~2021-02-25] VITALS: Ht 185.4 cm; Wt 83.9 kg
[2021-02-25] MEDS ORDERED: PROMETHAZINE 25MG/ NS 50ML (IV) IV STA (12:28)
[2021-02-25] MEDS ORDERED: DIPHENHYDRAMINE HCL INJ 50 MG/ML VIAL IV STA (12:28)
[2021-02-25] MEDS ORDERED: SODIUM CHLORIDE 0.9% 1000ML 1,000 ML IV STA (12:28)
[2021-02-25] MEDS ORDERED: SODIUM CHLORIDE 0.9% 1000ML 1,000 ML ONE (12:46)
[2021-02-25] MEDS ORDERED: PROMETHAZINE HCL (IM) 25 MG/ML VIAL IM ONE (12:46)
[2021-02-25] MEDS ORDERED: DICYCLOMINE HCL 20 MG TAB PO STA (13:16)
[2021-02-25] MEDS ORDERED: KETOROLAC TROMETHAMINE 30 MG/ML VIAL IV STA (13:16)
[2021-02-25] MEDS ORDERED: PHENERGAN SUPP25 MG PR (13:18)
[2021-02-25] MEDS ORDERED: DICYCLOMINE HCL 20 MG/2 ML VIAL IM ONE ×2 (13:30→13:39)
[2021-02-25] MEDS ORDERED: DICYCLOMINE HCL 10 MG CAP ONE (13:35)
== END 2021-02-25 13:51 | disposition home or self-care (01) ==
LOC: FSED 12:27
DX: R10.9 Unspecified abdominal pain (principal); K21.9 Gastro-esophageal reflux disease without esophagitis; Z87.19 Personal history of other diseases of the digestive system; I10 Essential (primary) hypertension; E11.9 Type 2 diabetes mellitus without complications; Z79.4 Long term (current) use of insulin; Z79.899 Other long term (current) drug therapy
CPT/HCPCS: 80053; 85025; 96372; 96374; 96375; 99283; J0500; J1200; J1885; J2550; J7030

== ENCOUNTER 2021-02-25 18:00 | Inpatient (IN) | payer MEDICARE ==
[~2021-02-25] VITALS: Ht 185.4 cm; Wt 129.3 kg
[2021-02-25] MEDS ORDERED: ONDANSETRON HCL INJ 2MG/ML 2ML 2 MG/ML VIAL IV STA ×2 (18:31)
[2021-02-25] MEDS ORDERED: Morphine 4mg Syringe 4 MG/ML INJ IV ONE (18:45)
[2021-02-25] MEDS ORDERED: FAMOTIDINE 20 MG/2 ML VIAL IV STA (18:50)
[2021-02-25] MEDS ORDERED: SODIUM CHLORIDE 0.9% 1000ML 1,000 ML IV SCH (19:00)
[2021-02-25] MEDS ORDERED: FAMOTIDINE 20 MG/2 ML VIAL IV ONE (19:33)
[2021-02-25] MEDS ORDERED: PROMETHAZINE HCL (IM) 25 MG/ML VIAL IM ONE (19:33)
[2021-02-25] MEDS ORDERED: ONDANSETRON HCL INJ 2MG/ML 2ML 2 MG/ML VIAL ONE (19:33)
[2021-02-25] MEDS ORDERED: SODIUM CHLORIDE 0.9% 1000ML 1,000 ML ONE (19:33)
[2021-02-25] MEDS ORDERED: PROMETHAZINE 12.5MG/ NACL 0.9% 12.5 MG/50 ML BAG IV ONE (19:45)
[2021-02-25 21:06] VITALS: BP 181/98
[2021-02-25 21:30] VITALS: BP 181/98
[2021-02-25 22:42] VITALS: BP 181/98
[2021-02-25] MEDS: Morphine 2mg Syringe 2 MG/ML SYR IV PRN (22:58)
[2021-02-25] MEDS: SODIUM CHLORIDE 0.9% 1000ML 1,000 ML IV SCH (22:58)
[2021-02-25] MEDS: KETOROLAC TROMETHAMINE 30 MG/ML VIAL IV SCH (23:04)
[2021-02-26] VITALS (7 sets, daily range): BP systolic 138–172; BP diastolic 77–92
[2021-02-26] MEDS ORDERED: METOCLOPRAMIDE HCL 10 MG/2ML VIAL IV SCH
[2021-02-26] MEDS: Pantoprazole IV 40 MG in SODIUM CHLORIDE 0.9% 50ML 50 ML IV SCH ×5 (00:04→20:00)
[2021-02-26] MEDS: METOCLOPRAMIDE HCL 10 MG/2ML VIAL IV SCH ×4 (00:05→16:04)
[2021-02-26] MEDS ORDERED: MELATONIN 5 MG TABLET PO PRN (01:30)
[2021-02-26] MEDS ORDERED: ACETAMINOPHEN 325 MG TAB PO PRN (01:30)
[2021-02-26] MEDS ORDERED: DIPHENHYDRAMINE HCL 25 MG CAP PO PRN (01:30)
[2021-02-26] MEDS ORDERED: BENZONATATE 100 MG CAP PO PRN (01:30)
[2021-02-26] MEDS ORDERED: DEXTROSE 50% SYRINGE 50 ML IV PRN ×2 (01:30)
[2021-02-26] MEDS ORDERED: HYDRALAZINE HCL 20 MG/ML VIAL IV PRN (01:30)
[2021-02-26] MEDS ORDERED: ALBUTEROL/IPRATROPIUM 3 ML NEB NEB PRN (01:30)
[2021-02-26] MEDS ORDERED: LIDOCAINE 4% PATCH TP PRN (01:30)
[2021-02-26] MEDS ORDERED: SIMETHICONE 80 MG CHEW PO PRN (01:30)
[2021-02-26] MEDS ORDERED: ONDANSETRON HCL INJ 2MG/ML 2ML 2 MG/ML VIAL IV PRN (01:30)
[2021-02-26] MEDS ORDERED: POTASSIUM CHLORIDE 20 MEQ TAB CR PO PRN (01:30)
[2021-02-26] MEDS ORDERED: DOCUSATE SODIUM 100 MG CAP PO PRN (01:30)
[2021-02-26] MEDS: SODIUM CHLORIDE 0.9% 1000ML 1,000 ML IV SCH ×2 (01:45→12:19)
[2021-02-26] MEDS: NIFEDIPINE CR 30 MG TAB PO SCH ×2 (02:12→08:42)
[2021-02-26] MEDS: Morphine 2mg Syringe 2 MG/ML SYR IV PRN ×5 (04:20→22:43)
[2021-02-26] MEDS: KETOROLAC TROMETHAMINE 30 MG/ML VIAL IV SCH (05:21)
[2021-02-26 05:36] LABS: MAGNESIUM 1.5 MG/DL (1.3-2.1); PHOSPHORUS 3.8 MG/DL (2.3-4.7)
[2021-02-26 05:39] LABS: BASOPHILS % 0.3 % (0.0-1.0); HEMATOCRIT 30.7 % (38.2-49.6); LYMPHOCYTES # (AUTO) 1.2 (1.0-3.2); LYMPHOCYTES % 9.8 % (18.0-39.1); MEAN CORPUSCULAR HEMOGLOBIN 29.5 pg (28-32); MEAN CORPUSCULAR HGB CONC 32.6 g/dL (31-35); MEAN CORPUSCULAR VOLUME 90.6 fL (81-99); MONOCYTES # (AUTO) 1.4 (0.2-0.8); MONOCYTES % 11.6 % (4.4-11.3); NEUTROPHILS # (AUTO) 9.5 (2.1-6.9); NEUTROPHILS % 77.6 % (38.7-80.0); PLATELET COUNT 185 x10e3/uL (140-360); RED BLOOD COUNT 3.39 x10e6/uL (4.3-5.7); RED CELL DISTRIBUTION WIDTH 13.5 % (11.7-14.4)
[2021-02-26 06:15] LABS: ALBUMIN 3.8 g/dL (3.5-5.0); ALBUMIN/GLOBULIN RATIO 1.3 (0.8-2.0); ANION GAP 18.9 mmol/L (8-16); CALCIUM 8.4 mg/dL (8.4-10.2); CREATININE, SERUM 1.53 mg/dL (0.72-1.25); POTASSIUM 3.9 mmol/L (3.5-5.1)
[2021-02-26 06:23] LABS: THYROID STIMULATING HORMONE 0.498 uIU/mL (0.350-4.940)
[2021-02-26] MEDS ORDERED: PANTOPRAZOLE SOD 40 MG TABEC PO SCH ×3 (07:30→09:00)
[2021-02-26] MEDS: DICYCLOMINE HCL 20 MG TAB PO SCH ×3 (08:41→20:37)
[2021-02-26] MEDS: METOPROLOL TARTRATE 25 MG TAB PO SCH ×2 (08:42→20:38)
[2021-02-26] MEDS: LISINOPRIL 2.5 MG TAB PO SCH (08:42)
[2021-02-26 14:54] LABS: FREE T4 (FREE THYROXINE) 0.98 ng/dL (0.8-1.8); THYROID STIMULATING HORMONE 0.551 uIU/mL (0.350-4.940)
[2021-02-26] MEDS: INSULIN LISPRO 100 UNIT/1 ML 3ML VIAL SQ SCH ×3 (16:04→20:38)
[2021-02-26] MEDS ORDERED: ENOXAPARIN SOD INJ 40 MG/0.4 ML SYR SC SCH (17:00)
[2021-02-26] MEDS ORDERED: INSULIN GLARGINE 100 UNITS/ML VIAL SQ SCH (21:00)
[2021-02-27] MEDS: METOCLOPRAMIDE HCL 10 MG/2ML VIAL IV SCH ×3 (00:13→11:16)
[2021-02-27 00:52] LABS: % IRON SATURATION 20 % (15-50); IRON 66 ug/dL (65-175); TOTAL IRON BINDING CAPACITY 326 ug/dL (261-478); TRANSFERRIN 233 mg/dL (174-364)
[2021-02-27] MEDS: Pantoprazole IV 40 MG in SODIUM CHLORIDE 0.9% 50ML 50 ML IV SCH ×3 (01:29→11:16)
[2021-02-27] MEDS: SODIUM CHLORIDE 0.9% 1000ML 1,000 ML IV SCH (01:30)
[2021-02-27] MEDS: Morphine 2mg Syringe 2 MG/ML SYR IV PRN ×2 (02:42→07:35)
[2021-02-27 04:00] VITALS: BP 155/90
[2021-02-27 05:25] LABS: BASOPHILS # (AUTO) 0.1 (0.0-0.1); BASOPHILS % 0.6 % (0.0-1.0); EOSINOPHILS # (AUTO) 0.1 (0.0-0.4); EOSINOPHILS % 0.5 % (0.0-6.0); HEMATOCRIT 31.7 % (38.2-49.6); HEMOGLOBIN 10.1 g/dL (14.0-18.0); LYMPHOCYTES # (AUTO) 1.3 (1.0-3.2); LYMPHOCYTES % 10.5 % (18.0-39.1); MEAN CORPUSCULAR HEMOGLOBIN 29.3 pg (28-32); MEAN CORPUSCULAR HGB CONC 31.9 g/dL (31-35); MEAN CORPUSCULAR VOLUME 91.9 fL (81-99); MONOCYTES # (AUTO) 1.2 (0.2-0.8); MONOCYTES % 9.6 % (4.4-11.3); NEUTROPHILS # (AUTO) 9.8 (2.1-6.9); NEUTROPHILS % 78.4 % (38.7-80.0); PLATELET COUNT 193 x10e3/uL (140-360); RED BLOOD COUNT 3.45 x10e6/uL (4.3-5.7); RED CELL DISTRIBUTION WIDTH 13.2 % (11.7-14.4)
[2021-02-27 05:45] LABS: CALCIUM 8.1 mg/dL (8.4-10.2); CREATININE, SERUM 1.12 mg/dL (0.72-1.25)
[2021-02-27] MEDS: INSULIN LISPRO 100 UNIT/1 ML 3ML VIAL SQ SCH ×4 (07:30→11:32)
[2021-02-27 08:04] VITALS: BP 164/92
[2021-02-27 08:40] VITALS: BP 164/92
[2021-02-27] MEDS: DICYCLOMINE HCL 20 MG TAB PO SCH (08:48)
[2021-02-27] MEDS: METOPROLOL TARTRATE 25 MG TAB PO SCH (08:55)
[2021-02-27] MEDS: NIFEDIPINE CR 30 MG TAB PO SCH (08:55)
[2021-02-27] MEDS: LISINOPRIL 2.5 MG TAB PO SCH (08:55)
[2021-02-27 11:52] VITALS: BP 150/87
[2021-02-27] MEDS ORDERED: INSULIN LISPRO 100 UNIT/1 ML 3ML VIAL SQ SCH (16:30)
[2021-02-27] MEDS ORDERED: INSULIN GLARGINE 100 UNITS/ML VIAL SQ SCH (21:00)
== END 2021-02-27 13:55 | disposition home or self-care (01) | DRG 74 ==
LOC: FSED 18:17 → ERHOLD 19:00 → MED/SURG 21:23 → OBSVTOIN 02-27 10:43
PROVIDERS: ADMIT Internal Medicine; ATTEND Internal Medicine
DX: E11.43 Type 2 diabetes mellitus with diabetic autonomic (poly)neuropathy (principal); K31.84 Gastroparesis; Z79.899 Other long term (current) drug therapy; E86.0 Dehydration; Z20.822 Contact with and (suspected) exposure to COVID-19; F17.200 Nicotine dependence, unspecified, uncomplicated; K21.9 Gastro-esophageal reflux disease without esophagitis; I10 Essential (primary) hypertension
CPT/HCPCS: 36415; 74176; 80048; 80053; 82607; 82746; 82948; 83036; 83540; 83735; 84100; 84439; 84443; 84466; 84484; 85025; 85045; 94799; 99284; G0378; J1885; J2270; J2405; J2550; J2765; J7030; U0002

== ENCOUNTER 2021-03-05 12:55 | Inpatient (IN) | payer MEDICARE ==
[~2021-03-05] VITALS: Ht 185.4 cm; Wt 85.3 kg
[2021-03-05] MEDS ORDERED: KETOROLAC TROMETHAMINE 30 MG/ML VIAL ONE (13:24)
[2021-03-05] MEDS ORDERED: FAMOTIDINE 20 MG/2 ML VIAL IV ONE (13:25)
[2021-03-05] MEDS ORDERED: SODIUM CHLORIDE 0.9% 1000ML 1,000 ML ONE ×2 (13:25→14:49)
[2021-03-05] MEDS ORDERED: PROMETHAZINE HCL (IM) 25 MG/ML VIAL IM ONE (13:25)
[2021-03-05] MEDS ORDERED: KETOROLAC TROMETHAMINE 30 MG/ML VIAL IV STA (14:28)
[2021-03-05] MEDS ORDERED: SODIUM CHLORIDE 0.9% 1000ML 1,000 ML IV STA (14:28)
[2021-03-05] MEDS ORDERED: FAMOTIDINE 20 MG/2 ML VIAL IV STA (14:28)
[2021-03-05] MEDS ORDERED: ONDANSETRON HCL INJ 2MG/ML 2ML 2 MG/ML VIAL IV PRN (14:30)
[2021-03-05] MEDS ORDERED: PROMETHAZINE HCL (IM) 25 MG/ML VIAL IM PRN (14:30)
[2021-03-05] MEDS ORDERED: INSULIN REGULAR, HUMAN 100 UNIT/1 ML IV ONE (14:30)
[2021-03-05] MEDS ORDERED: SODIUM CHLORIDE 0.9% 1000ML 1,000 ML IV SCH (14:30)
[2021-03-05] MEDS ORDERED: DEXTROSE 50% SYRINGE 50 ML IV PRN (14:30)
[2021-03-05] MEDS ORDERED: PROMETHAZINE 25MG/ NS 50ML (IV) IV ONE (14:30)
[2021-03-05] MEDS ORDERED: INSULIN REGULAR, HUMAN 100 UNIT/1 ML ONE (14:49)
[2021-03-05] MEDS: SODIUM CHLORIDE 0.9% 1000ML 1,000 ML IV SCH (16:48)
[2021-03-05 17:00] VITALS: BP 170/87
[2021-03-05] MEDS: INSULIN LISPRO 100 UNIT/1 ML 3ML VIAL SQ SCH ×2 (17:04→21:00)
[2021-03-05 17:40] VITALS: BP 170/87
[2021-03-05 20:00] VITALS: BP 158/82
[2021-03-05 21:00] VITALS: BP 158/82
[2021-03-05] MEDS: METOPROLOL TARTRATE 25 MG TAB PO SCH (21:00)
[2021-03-05] MEDS: DICYCLOMINE HCL 20 MG TAB PO SCH (21:00)
[2021-03-05] MEDS: KETOROLAC TROMETHAMINE 30 MG/ML VIAL IV PRN (21:03)
[2021-03-06] VITALS (8 sets, daily range): BP systolic 156–179; BP diastolic 82–97
[2021-03-06] MEDS: SODIUM CHLORIDE 0.9% 1000ML 1,000 ML IV SCH ×4 (00:45→23:52)
[2021-03-06] MEDS ORDERED: Morphine 4mg Syringe 4 MG/ML INJ IV ONE (01:15)
[2021-03-06] MEDS: Pantoprazole IV 40 MG in SODIUM CHLORIDE 0.9% 50ML 50 ML IV SCH ×5 (01:36→21:24)
[2021-03-06] MEDS: METOCLOPRAMIDE HCL 10 MG/2ML VIAL IV SCH ×5 (01:37→23:52)
[2021-03-06] MEDS: ONDANSETRON HCL INJ 2MG/ML 2ML 2 MG/ML VIAL IV PRN ×2 (05:21→21:24)
[2021-03-06 06:45] LABS: BASOPHILS # (AUTO) 0.1 (0.0-0.1); BASOPHILS % 0.5 % (0.0-1.0); EOSINOPHILS % 0.1 % (0.0-6.0); HEMATOCRIT 31.1 % (38.2-49.6); LYMPHOCYTES # (AUTO) 1.2 (1.0-3.2); LYMPHOCYTES % 10.9 % (18.0-39.1); MEAN CORPUSCULAR HEMOGLOBIN 29.7 pg (28-32); MEAN CORPUSCULAR HGB CONC 32.2 g/dL (31-35); MEAN CORPUSCULAR VOLUME 92.3 fL (81-99); MONOCYTES # (AUTO) 1.6 (0.2-0.8); MONOCYTES % 14.4 % (4.4-11.3); NEUTROPHILS % 73.1 % (38.7-80.0); PLATELET COUNT 255 x10e3/uL (140-360); RED BLOOD COUNT 3.37 x10e6/uL (4.3-5.7); RED CELL DISTRIBUTION WIDTH 13.5 % (11.7-14.4)
[2021-03-06 07:04] LABS: ALBUMIN 3.5 g/dL (3.5-5.0); ALBUMIN/GLOBULIN RATIO 1.3 (0.8-2.0); ANION GAP 14.7 mmol/L (8-16); CALCIUM 8.2 mg/dL (8.4-10.2); CREATININE, SERUM 1.31 mg/dL (0.72-1.25); POTASSIUM 3.7 mmol/L (3.5-5.1)
[2021-03-06] MEDS: INSULIN LISPRO 100 UNIT/1 ML 3ML VIAL SQ SCH ×4 (08:00→21:00)
[2021-03-06] MEDS: KETOROLAC TROMETHAMINE 30 MG/ML VIAL IV PRN (09:40)
[2021-03-06] MEDS: DICYCLOMINE HCL 20 MG TAB PO SCH ×3 (10:42→21:23)
[2021-03-06] MEDS: METOPROLOL TARTRATE 25 MG TAB PO SCH ×2 (10:43→21:24)
[2021-03-06] MEDS: PANTOPRAZOLE SOD 40 MG TABEC PO SCH ×2 (10:43→16:25)
[2021-03-06] MEDS: LISINOPRIL 2.5 MG TAB PO SCH (10:43)
[2021-03-06] MEDS: INSULIN GLARGINE 100 UNITS/ML VIAL SQ SCH (10:44)
[2021-03-06] MEDS ORDERED: KETOROLAC TROMETHAMINE 30 MG/ML VIAL IV PRN (21:00)
[2021-03-07] VITALS: BP 183/105
[2021-03-07] MEDS: Pantoprazole IV 40 MG in SODIUM CHLORIDE 0.9% 50ML 50 ML IV SCH ×2 (02:38→07:50)
[2021-03-07 04:00] VITALS: BP 172/98
[2021-03-07] MEDS: METOCLOPRAMIDE HCL 10 MG/2ML VIAL IV SCH ×2 (05:46→12:04)
[2021-03-07 06:04] LABS: BASOPHILS % 0.3 % (0.0-1.0); EOSINOPHILS % 0.2 % (0.0-6.0); HEMATOCRIT 33.1 % (38.2-49.6); HEMOGLOBIN 10.5 g/dL (14.0-18.0); LYMPHOCYTES # (AUTO) 1.5 (1.0-3.2); MEAN CORPUSCULAR HEMOGLOBIN 29.4 pg (28-32); MEAN CORPUSCULAR HGB CONC 31.7 g/dL (31-35); MEAN CORPUSCULAR VOLUME 92.7 fL (81-99); MONOCYTES # (AUTO) 1.3 (0.2-0.8); MONOCYTES % 13.9 % (4.4-11.3); NEUTROPHILS # (AUTO) 6.4 (2.1-6.9); NEUTROPHILS % 69.2 % (38.7-80.0); PLATELET COUNT 146 x10e3/uL (140-360); RED BLOOD COUNT 3.57 x10e6/uL (4.3-5.7); RED CELL DISTRIBUTION WIDTH 13.2 % (11.7-14.4)
[2021-03-07 07:02] LABS: ALBUMIN 3.1 g/dL (3.5-5.0); ALBUMIN/GLOBULIN RATIO 1.1 (0.8-2.0); ANION GAP 13.7 mmol/L (8-16); CALCIUM 7.9 mg/dL (8.4-10.2); CREATININE, SERUM 1.14 mg/dL (0.72-1.25); POTASSIUM 3.7 mmol/L (3.5-5.1)
[2021-03-07 07:29] LABS: % IRON SATURATION 30 % (15-50); IRON 74 ug/dL (65-175); TOTAL IRON BINDING CAPACITY 249 ug/dL (261-478); TRANSFERRIN 178 mg/dL (174-364)
[2021-03-07 08:04] VITALS: BP 161/83
[2021-03-07 08:19] VITALS: BP 161/82
[2021-03-07] MEDS: DICYCLOMINE HCL 20 MG TAB PO SCH (08:59)
[2021-03-07] MEDS: METOPROLOL TARTRATE 25 MG TAB PO SCH (09:00)
[2021-03-07] MEDS: LISINOPRIL 2.5 MG TAB PO SCH (09:00)
[2021-03-07] MEDS: PANTOPRAZOLE SOD 40 MG TABEC PO SCH (09:00)
[2021-03-07] MEDS: INSULIN LISPRO 100 UNIT/1 ML 3ML VIAL SQ SCH ×2 (09:00→12:05)
[2021-03-07] MEDS: INSULIN GLARGINE 100 UNITS/ML VIAL SQ SCH (09:01)
[2021-03-07 11:59] VITALS: BP 156/100
[2021-03-07] MEDS ORDERED: HYDRALAZINE HCL 20 MG/ML VIAL IV ONE (12:00)
[2021-03-07] MEDS ORDERED: METOCLOPRAMIDE HCL 10 MG TAB PO SCH (16:30)
== END 2021-03-07 13:39 | disposition home or self-care (01) | DRG 74 ==
LOC: FSED 13:52 → ERHOLD 14:34 → MED/SURG2 16:02
PROVIDERS: ADMIT Internal Medicine; ATTEND Internal Medicine
DX: E11.43 Type 2 diabetes mellitus with diabetic autonomic (poly)neuropathy (principal); K31.84 Gastroparesis; Z79.899 Other long term (current) drug therapy; E11.65 Type 2 diabetes mellitus with hyperglycemia; I10 Essential (primary) hypertension; Z20.822 Contact with and (suspected) exposure to COVID-19
CPT/HCPCS: 36415; 80048; 80053; 80076; 81003; 82607; 82746; 82948; 83036; 83540; 84466; 85025; 85045; 96374; 96375; 96376; 99283; J0360; J1815; J1817; J1885; J2270; J2405; J2550; J2765; J7030; U0002

== ENCOUNTER 2021-03-11 16:26 | Emergency (ER) | payer MEDICARE ==
[~2021-03-11] VITALS: Ht 185.4 cm; Wt 84.1 kg
[2021-03-11] MEDS ORDERED: FAMOTIDINE 20 MG/2 ML VIAL IV STA (17:42)
[2021-03-11] MEDS ORDERED: SODIUM CHLORIDE 0.9% 1000ML 1,000 ML IV SCH (17:45)
[2021-03-11] MEDS ORDERED: PROMETHAZINE 25MG/ NS 50ML (IV) IV ONE (17:45)
[2021-03-11] MEDS ORDERED: SODIUM CHLORIDE 0.9% 50ML 50 ML ONE (18:18)
[2021-03-11] MEDS ORDERED: SODIUM CHLORIDE 0.9% 1000ML 1,000 ML ONE (18:18)
[2021-03-11] MEDS ORDERED: PROMETHAZINE HCL (IM) 25 MG/ML VIAL IM ONE (18:18)
[2021-03-11] MEDS ORDERED: FAMOTIDINE 20 MG/2 ML VIAL IV ONE (18:18)
[2021-03-11] MEDS ORDERED: PROMETHAZI6.25 MG/5 PO (19:37)
== END 2021-03-11 20:48 | disposition home or self-care (01) ==
LOC: FSED 16:39
DX: E11.43 Type 2 diabetes mellitus with diabetic autonomic (poly)neuropathy (principal); E11.65 Type 2 diabetes mellitus with hyperglycemia; K31.84 Gastroparesis; R10.9 Unspecified abdominal pain; D72.829 Elevated white blood cell count, unspecified; I10 Essential (primary) hypertension; Z91.14 Patient's other noncompliance with medication regimen
CPT/HCPCS: 96374; 99283; J2550; J7030

== ENCOUNTER 2021-06-11 20:24 | Emergency (ER) | payer MEDICARE ==
[~2021-06-11] VITALS: Ht 185.4 cm; Wt 88.9 kg
[2021-06-11] MEDS ORDERED: FAMOTIDINE 20 MG/2 ML VIAL IV STA (21:03)
[2021-06-11] MEDS ORDERED: PROMETHAZINE HCL (IM) 25 MG/ML VIAL IM ONE (21:14)
[2021-06-11] MEDS ORDERED: PROMETHAZINE 25MG/SOD CHL 0.9% 50 ML IV ONE (21:15)
[2021-06-11] MEDS ORDERED: PROMETHAZINE 25MG/ NS 50ML (IV) IV ONE (21:15)
[2021-06-11] MEDS ORDERED: SODIUM CHLORIDE 0.9% 1000ML 1,000 ML IV SCH (21:15)
[2021-06-11] MEDS ORDERED: KETOROLAC TROMETHAMINE 30 MG/ML VIAL IV STA (21:56)
[2021-06-11] MEDS ORDERED: HALOPERIDOL LACTATE 5 MG/ML VIAL IV ONE (22:00)
[2021-06-11] MEDS ORDERED: KETOROLAC TROMETHAMINE 30 MG/ML VIAL ONE (22:32)
[2021-06-11] MEDS ORDERED: HALOPERIDOL LACTATE 5 MG/ML VIAL ONE (22:33)
[2021-06-13] MEDS ORDERED: PROMETHAZINE HC25 M1 PO (23:23)
[2021-06-13] MEDS ORDERED: DICYCLOMINE HCL20 MG PO (23:29)
== END 2021-06-12 00:30 | disposition home or self-care (01) ==
LOC: FSED 20:39
DX: E11.43 Type 2 diabetes mellitus with diabetic autonomic (poly)neuropathy (principal); K31.84 Gastroparesis; E11.65 Type 2 diabetes mellitus with hyperglycemia; R10.84 Generalized abdominal pain; K21.9 Gastro-esophageal reflux disease without esophagitis
CPT/HCPCS: 99283; C9113; J1630; J1885; J2550; J7030

== ENCOUNTER 2021-06-13 20:49 | Emergency (ER) | payer MEDICARE ==
[~2021-06-13] VITALS: Ht 185.4 cm; Wt 88.9 kg
[2021-06-13] MEDS ORDERED: FAMOTIDINE 20 MG/2 ML VIAL IV STA (21:15)
[2021-06-13] MEDS ORDERED: PROMETHAZINE 25MG/ NS 50ML (IV) IV ONE ×2 (21:15→22:30)
[2021-06-13] MEDS ORDERED: DICYCLOMINE HCL 20 MG/2 ML VIAL IM ONE ×2 (21:15→21:34)
[2021-06-13] MEDS ORDERED: SODIUM CHLORIDE 0.9% 1000ML 1,000 ML IV SCH ×2 (21:15→22:30)
[2021-06-13] MEDS ORDERED: METOCLOPRAMIDE HCL 10 MG/2ML VIAL IV ONE (21:30)
[2021-06-13] MEDS ORDERED: METOCLOPRAMIDE HCL 10 MG/2ML VIAL ONE (21:35)
[2021-06-13] MEDS ORDERED: FAMOTIDINE 20 MG/2 ML VIAL IV ONE (21:35)
[2021-06-13] MEDS ORDERED: PROMETHAZINE HCL (IM) 25 MG/ML VIAL IM ONE (22:26)
[2021-06-13] MEDS ORDERED: PROMETHAZINE HC25 M1 PO (23:23)
[2021-06-13] MEDS ORDERED: DICYCLOMINE HCL20 MG PO (23:29)
== END 2021-06-14 00:19 | disposition home or self-care (01) ==
LOC: FSED 21:06
DX: E11.43 Type 2 diabetes mellitus with diabetic autonomic (poly)neuropathy (principal); E11.65 Type 2 diabetes mellitus with hyperglycemia; K31.84 Gastroparesis; R10.84 Generalized abdominal pain; I10 Essential (primary) hypertension
CPT/HCPCS: 99283; J0500; J2550; J2765

== ENCOUNTER 2021-06-16 06:05 | Observation (INO) | payer MEDICARE ==
[~2021-06-16] VITALS: Ht 185.4 cm; Wt 88.9 kg
[2021-06-16] MEDS ORDERED: SODIUM CHLORIDE 0.9% 1000ML 1,000 ML IV STA (06:36)
[2021-06-16] MEDS ORDERED: METOCLOPRAMIDE HCL 10 MG/2ML VIAL IV ONE (06:45)
[2021-06-16] MEDS ORDERED: DICYCLOMINE HCL 20 MG/2 ML VIAL IM ONE ×2 (06:45→07:42)
[2021-06-16] MEDS ORDERED: IOPAMIDOL 370 MG/ML 200 ML INFUS..BTL INJ ONE (07:22)
[2021-06-16] MEDS ORDERED: SODIUM CHLORIDE 0.9% 50ML 0 ML ONE ×2 (07:22→09:06)
[2021-06-16] MEDS ORDERED: METOCLOPRAMIDE HCL 10 MG/2ML VIAL ONE (07:42)
[2021-06-16] MEDS ORDERED: SODIUM CHLORIDE 0.9% 1000ML 1,000 ML ONE (07:43)
[2021-06-16] MEDS ORDERED: KETOROLAC TROMETHAMINE 30 MG/ML VIAL IV STA (08:33)
[2021-06-16] MEDS ORDERED: PROMETHAZINE 25MG/ NS 50ML (IV) IV ONE (08:45)
[2021-06-16] MEDS ORDERED: PROMETHAZINE HCL (IM) 25 MG/ML VIAL IM ONE (09:06)
[2021-06-16] MEDS ORDERED: KETOROLAC TROMETHAMINE 30 MG/ML VIAL ONE (09:06)
[2021-06-16] MEDS ORDERED: FAMOTIDINE 20 MG/2 ML VIAL IV STA (09:25)
[2021-06-16] MEDS ORDERED: PROMETHAZINE HCL (IM) 25 MG/ML VIAL IM PRN (09:30)
[2021-06-16] MEDS ORDERED: ONDANSETRON HCL INJ 2MG/ML 2ML 2 MG/ML VIAL IV PRN (09:30)
[2021-06-16 11:00] VITALS: BP 183/103
[2021-06-16] MEDS ORDERED: HYDRALAZINE HCL 20 MG/ML VIAL IV PRN (11:15)
[2021-06-16] MEDS ORDERED: Morphine 2mg Syringe 2 MG/ML SYR IV ONE (11:15)
[2021-06-16] MEDS: SODIUM CHLORIDE 0.9% 1000ML 1,000 ML IV SCH ×2 (11:22→20:15)
[2021-06-16] MEDS: Pantoprazole IV 40 MG in SODIUM CHLORIDE 0.9% 50ML 50 ML IV SCH ×3 (11:22→20:49)
[2021-06-16] MEDS: METOCLOPRAMIDE HCL 10 MG/2ML VIAL IV SCH ×2 (11:23→17:26)
[2021-06-16] MEDS ORDERED: GABAPENTIN400 MG PO (12:06)
[2021-06-16 12:24] VITALS: BP 183/101
[2021-06-16 12:32] LABS: BASOPHILS % 0.3 % (0.0-1.0); EOSINOPHILS % 0.3 % (0.0-6.0); HEMATOCRIT 31.3 % (38.2-49.6); HEMOGLOBIN 10.4 g/dL (14.0-18.0); LYMPHOCYTES # (AUTO) 1.2 (1.0-3.2); LYMPHOCYTES % 16.9 % (18.0-39.1); MEAN CORPUSCULAR HEMOGLOBIN 29.4 pg (28-32); MEAN CORPUSCULAR HGB CONC 33.2 g/dL (31-35); MEAN CORPUSCULAR VOLUME 88.4 fL (81-99); MONOCYTES # (AUTO) 0.6 (0.2-0.8); MONOCYTES % 8.9 % (4.4-11.3); NEUTROPHILS # (AUTO) 5.2 (2.1-6.9); NEUTROPHILS % 73.2 % (38.7-80.0); PLATELET COUNT 164 x10e3/uL (140-360); RED BLOOD COUNT 3.54 x10e6/uL (4.3-5.7)
[2021-06-16 12:47] LABS: ANION GAP 11.5 mmol/L (8-16); CALCIUM 8.1 mg/dL (8.4-10.2); CREATININE, SERUM 1.37 mg/dL (0.72-1.25); POTASSIUM 3.5 mmol/L (3.5-5.1)
[2021-06-16] MEDS ORDERED: DICYCLOMINE HCL 20 MG TAB PO PRN (13:30)
[2021-06-16 17:35] VITALS: BP 149/89
[2021-06-16 20:00] VITALS: BP 145/91
[2021-06-16 20:03] VITALS: BP 149/89
[2021-06-16] MEDS ORDERED: DEXTROSE 50% SYRINGE 50 ML IV PRN ×2 (20:30)
[2021-06-16] MEDS: METOPROLOL TARTRATE 25 MG TAB PO SCH (20:47)
[2021-06-16] MEDS: INSULIN LISPRO 100 UNIT/1 ML 3ML VIAL SQ SCH (20:48)
[2021-06-16] MEDS ORDERED: GABAPENTIN 400 MG CAP PO SCH (21:00)
[2021-06-16] MEDS ORDERED: INSULIN GLARGINE 100 UNITS/ML VIAL SQ SCH (21:00)
[2021-06-17] VITALS: BP 164/92
[2021-06-17] MEDS: SODIUM CHLORIDE 0.9% 1000ML 1,000 ML IV SCH (02:02)
[2021-06-17 04:00] VITALS: BP 169/98
[2021-06-17] MEDS: Pantoprazole IV 40 MG in SODIUM CHLORIDE 0.9% 50ML 50 ML IV SCH (04:22)
[2021-06-17] MEDS: METOCLOPRAMIDE HCL 10 MG/2ML VIAL IV SCH ×3 (06:00→12:00)
[2021-06-17 06:35] LABS: BASOPHILS # (AUTO) 0.1 (0.0-0.1); BASOPHILS % 0.7 % (0.0-1.0); EOSINOPHILS # (AUTO) 0.2 (0.0-0.4); EOSINOPHILS % 2.9 % (0.0-6.0); HEMATOCRIT 32.6 % (38.2-49.6); HEMOGLOBIN 10.8 g/dL (14.0-18.0); LYMPHOCYTES # (AUTO) 2.2 (1.0-3.2); LYMPHOCYTES % 30.4 % (18.0-39.1); MEAN CORPUSCULAR HEMOGLOBIN 29.6 pg (28-32); MEAN CORPUSCULAR HGB CONC 33.1 g/dL (31-35); MEAN CORPUSCULAR VOLUME 89.3 fL (81-99); MONOCYTES # (AUTO) 0.8 (0.2-0.8); MONOCYTES % 11.7 % (4.4-11.3); NEUTROPHILS # (AUTO) 3.9 (2.1-6.9); PLATELET COUNT 173 x10e3/uL (140-360); RED BLOOD COUNT 3.65 x10e6/uL (4.3-5.7); RED CELL DISTRIBUTION WIDTH 13.2 % (11.7-14.4)
[2021-06-17 07:12] LABS: ALBUMIN 3.1 g/dL (3.5-5.0); ALBUMIN/GLOBULIN RATIO 1.1 (0.8-2.0); ANION GAP 9.9 mmol/L (8-16); CREATININE, SERUM 1.21 mg/dL (0.72-1.25)
[2021-06-17 07:20] LABS: POTASSIUM 2.9 mmol/L (3.5-5.1)
[2021-06-17] MEDS: INSULIN LISPRO 100 UNIT/1 ML 3ML VIAL SQ SCH ×2 (07:30→11:30)
[2021-06-17 08:00] VITALS: BP 142/88
[2021-06-17 08:24] VITALS: BP 142/88
[2021-06-17] MEDS ORDERED: MAGNESIUM OXIDE 400 MG TAB PO ONE (08:30)
[2021-06-17] MEDS ORDERED: POTASSIUM CHLORIDE 20 MEQ TAB CR PO ONE ×2 (08:30→11:30)
[2021-06-17] MEDS ORDERED: LISINOPRIL 2.5 MG TAB PO SCH (09:00)
[2021-06-17] MEDS: METOPROLOL TARTRATE 25 MG TAB PO SCH (09:39)
[2021-06-17 12:44] VITALS: BP 157/71
[2021-06-17 12:44] LABS: ANION GAP 11.7 mmol/L (8-16); CALCIUM 8.1 mg/dL (8.4-10.2); CREATININE, SERUM 1.33 mg/dL (0.72-1.25); POTASSIUM 3.7 mmol/L (3.5-5.1)
[2021-06-17] MEDS ORDERED: METOCLOPRAMIDE HCL 10 MG TAB PO SCH (16:30)
== END 2021-06-17 13:13 | disposition home or self-care (01) ==
LOC: FSED 06:09 → ERHOLD 09:33 → MED/SURG3 10:37
PROVIDERS: ADMIT Internal Medicine; ATTEND Internal Medicine
DX: E11.43 Type 2 diabetes mellitus with diabetic autonomic (poly)neuropathy (principal); K31.84 Gastroparesis; I10 Essential (primary) hypertension; K21.9 Gastro-esophageal reflux disease without esophagitis; E11.65 Type 2 diabetes mellitus with hyperglycemia; Z90.49 Acquired absence of other specified parts of digestive tract; E86.0 Dehydration; D64.9 Anemia, unspecified; F12.20 Cannabis dependence, uncomplicated; Z79.4 Long term (current) use of insulin; Z71.51 Drug abuse counseling and surveillance of drug abuser; Z20.822 Contact with and (suspected) exposure to COVID-19
CPT/HCPCS: 36415 ×2; 80048 ×2; 80053 ×2; 81003; 82553; 82948 ×2; 83036; 83690; 83735; 84484; 85025 ×2; 96361; 96374; 96375; 99284; C9113 ×2; G0378 ×2; J0360; J0500; J1815; J1885; J2270; J2405; J2550; J2765 ×2; J7030 ×2; U0002; Q9967

== ENCOUNTER 2021-07-17 15:59 | Observation (INO) | payer MEDICARE ==
[~2021-07-17] VITALS: Ht 188 cm; Wt 90.7 kg
[~2021-07-17 15:59] MED LIST changes: +GABAPENTIN400 MG PO
[2021-07-17] MEDS ORDERED: DIPHENHYDRAMINE HCL INJ 50 MG/ML VIAL IV PRN (16:15)
[2021-07-17] MEDS ORDERED: ONDANSETRON HCL INJ 2MG/ML 2ML 2 MG/ML VIAL IV PRN (16:15)
[2021-07-17] MEDS ORDERED: DEXTROSE 50% SYRINGE 50 ML IV PRN (16:15)
[2021-07-17] MEDS ORDERED: METOCLOPRAMIDE HCL 10 MG/2ML VIAL IV ONE (16:30)
[2021-07-17] MEDS: INSULIN REGULAR, HUMAN 100 UNIT/1 ML SQ SCH ×2 (16:30→20:48)
[2021-07-17] MEDS ORDERED: METOCLOPRAMIDE HCL 10 MG/2ML VIAL ONE (16:37)
[2021-07-17] MEDS ORDERED: SODIUM CHLORIDE 0.9% 1000ML 1,000 ML ONE (16:37)
[2021-07-17] MEDS: SODIUM CHLORIDE 0.9% 1000ML 1,000 ML IV SCH ×2 (16:44→23:50)
[2021-07-17 18:36] VITALS: BP 168/89
[2021-07-17 18:54] VITALS: BP 168/89
[2021-07-17 20:00] VITALS: BP 170/85
[2021-07-17 22:00] VITALS: BP 170/85
[2021-07-17 22:20] VITALS: BP 170/85
[2021-07-18] VITALS (9 sets, daily range): BP systolic 138–168; BP diastolic 77–87
[2021-07-18] MEDS ORDERED: HYDROMORPHONE 1MG/1ML INJ IV ONE (02:15)
[2021-07-18] MEDS: METOCLOPRAMIDE HCL 10 MG/2ML VIAL IV SCH ×3 (05:29→17:45)
[2021-07-18] MEDS: SODIUM CHLORIDE 0.9% 1000ML 1,000 ML IV SCH ×2 (06:35→17:44)
[2021-07-18] MEDS: INSULIN REGULAR, HUMAN 100 UNIT/1 ML SQ SCH ×4 (07:30→21:00)
[2021-07-18 08:24] LABS: BASOPHILS # (AUTO) 0.1 (0.0-0.1); BASOPHILS % 0.5 % (0.0-1.0); EOSINOPHILS % 0.1 % (0.0-6.0); HEMOGLOBIN 10.8 g/dL (14.0-18.0); LYMPHOCYTES # (AUTO) 1.5 (1.0-3.2); LYMPHOCYTES % 15.4 % (18.0-39.1); MEAN CORPUSCULAR HEMOGLOBIN 29.3 pg (28-32); MEAN CORPUSCULAR HGB CONC 31.8 g/dL (31-35); MEAN CORPUSCULAR VOLUME 92.4 fL (81-99); MONOCYTES % 9.8 % (4.4-11.3); NEUTROPHILS # (AUTO) 7.2 (2.1-6.9); NEUTROPHILS % 73.8 % (38.7-80.0); PLATELET COUNT 176 x10e3/uL (140-360); RED BLOOD COUNT 3.68 x10e6/uL (4.3-5.7); RED CELL DISTRIBUTION WIDTH 14.1 % (11.7-14.4)
[2021-07-18 08:45] LABS: ANION GAP 16.5 mmol/L (8-16); CALCIUM 8.6 mg/dL (8.4-10.2); CREATININE, SERUM 1.68 mg/dL (0.72-1.25); POTASSIUM 4.5 mmol/L (3.5-5.1)
[2021-07-18] MEDS ORDERED: TEMAZEPAM 7.5 MG CAP PO PRN (20:45)
[2021-07-18] MEDS: METOPROLOL TARTRATE 25 MG TAB PO SCH (21:16)
[2021-07-18] MEDS ORDERED: TRAMADOL HCL 50 MG TAB PO PRN (21:30)
[2021-07-18] MEDS ORDERED: PROMETHAZINE HCL 25 MG TAB PO PRN (21:30)
[2021-07-18] MEDS ORDERED: DICYCLOMINE HCL 20 MG TAB PO PRN (21:30)
[2021-07-19] VITALS: BP 152/94
[2021-07-19] MEDS: METOCLOPRAMIDE HCL 10 MG/2ML VIAL IV SCH ×2 (01:14→06:15)
[2021-07-19 02:00] LABS: % IRON SATURATION 24 % (15-50); IRON 88 ug/dL (65-175); TOTAL IRON BINDING CAPACITY 361 ug/dL (261-478); TRANSFERRIN 258 mg/dL (174-364)
[2021-07-19 04:00] VITALS: BP 156/78
[2021-07-19] MEDS: SODIUM CHLORIDE 0.9% 1000ML 1,000 ML IV SCH ×2 (06:15→08:57)
[2021-07-19] MEDS: INSULIN REGULAR, HUMAN 100 UNIT/1 ML SQ SCH (07:30)
[2021-07-19 08:00] VITALS: BP 142/89
[2021-07-19 08:51] VITALS: BP 142/89
[2021-07-19] MEDS: METOPROLOL TARTRATE 25 MG TAB PO SCH (09:00)
[2021-07-19] MEDS ORDERED: LISINOPRIL 2.5 MG TAB PO SCH (09:00)
[2021-07-19] MEDS ORDERED: METOCLOPRAMIDE HCL 10 MG TAB PO SCH ×2 (09:00→18:00)
[2021-07-19] MEDS ORDERED: PANTOPRAZOLE SOD 40 MG TABEC PO SCH (09:00)
[2021-07-19] MEDS ORDERED: INSULIN DEGLUDEC SC SCH (21:00)
[2021-07-19] MEDS ORDERED: GABAPENTIN 400 MG CAP PO SCH (21:00)
== END 2021-07-19 11:29 | disposition home or self-care (01) ==
LOC: FSED 16:05 → ERHOLD 16:13 → MED/SURG2 18:29
DX: E11.43 Type 2 diabetes mellitus with diabetic autonomic (poly)neuropathy (principal); K31.84 Gastroparesis; E86.0 Dehydration; I10 Essential (primary) hypertension; K21.9 Gastro-esophageal reflux disease without esophagitis; Z90.49 Acquired absence of other specified parts of digestive tract; Z79.4 Long term (current) use of insulin; Z20.822 Contact with and (suspected) exposure to COVID-19
CPT/HCPCS: 36415 ×3; 80048; 82607; 82746; 82948 ×3; 83540; 84466; 85025; 85045; 96374; 96375; 96376; 99284; C9113 ×3; G0378 ×3; J1170; J1817; J2405; J2765 ×3; J7030 ×2; J8597; S0164; U0002

== ENCOUNTER 2021-08-14 15:16 | Observation (INO) | payer MEDICARE ==
[~2021-08-14] VITALS: Ht 185.4 cm; Wt 85.4 kg
[2021-08-14] MEDS ORDERED: SODIUM CHLORIDE 0.9% 1000ML 1,000 ML ONE (15:39)
[2021-08-14] MEDS ORDERED: ONDANSETRON HCL INJ 2MG/ML 2ML 2 MG/ML VIAL ONE (15:39)
[2021-08-14] MEDS ORDERED: SODIUM CHLORIDE 0.9% 1000ML 1,000 ML IV STA (15:43)
[2021-08-14] MEDS ORDERED: FAMOTIDINE 20 MG/2 ML VIAL IV STA (15:45)
[2021-08-14] MEDS ORDERED: ONDANSETRON HCL INJ 2MG/ML 2ML 2 MG/ML VIAL IV STA (15:45)
[2021-08-14] MEDS ORDERED: HALOPERIDOL LACTATE 5 MG/ML VIAL IV ONE (15:45)
[2021-08-14] MEDS ORDERED: HALOPERIDOL LACTATE 5 MG/ML VIAL ONE (15:58)
[2021-08-14] MEDS ORDERED: SODIUM CHLORIDE 0.9% 1000ML 1,000 ML IV SCH (16:45)
[2021-08-14] MEDS ORDERED: ONDANSETRON HCL INJ 2MG/ML 2ML 2 MG/ML VIAL IV PRN (16:45)
[2021-08-14 20:00] VITALS: BP 159/84
[2021-08-14 20:02] LABS: BASOPHILS % 0.5 % (0.0-1.0); HEMOGLOBIN 10.7 g/dL (14.0-18.0); LYMPHOCYTES # (AUTO) 0.8 (1.0-3.2); LYMPHOCYTES % 9.2 % (18.0-39.1); MEAN CORPUSCULAR HEMOGLOBIN 29.4 pg (28-32); MEAN CORPUSCULAR HGB CONC 31.5 g/dL (31-35); MEAN CORPUSCULAR VOLUME 93.4 fL (81-99); MONOCYTES # (AUTO) 0.3 (0.2-0.8); NEUTROPHILS # (AUTO) 7.4 (2.1-6.9); NEUTROPHILS % 87.1 % (38.7-80.0); PLATELET COUNT 220 x10e3/uL (140-360); RED BLOOD COUNT 3.64 x10e6/uL (4.3-5.7); RED CELL DISTRIBUTION WIDTH 14.1 % (11.7-14.4)
[2021-08-14 20:19] VITALS: BP 179/89
[2021-08-14] MEDS ORDERED: DEXTROSE 50% SYRINGE 50 ML IV PRN (21:30)
[2021-08-14] MEDS: HYDROMORPHONE 1MG/1ML INJ IV PRN (21:50)
[2021-08-14 22:00] VITALS: BP 179/89
[2021-08-14] MEDS: METOCLOPRAMIDE HCL 10 MG/2ML VIAL IV SCH (22:20)
[2021-08-14] MEDS: SODIUM CHLORIDE 0.9% 1000ML 1,000 ML IV SCH (22:21)
[2021-08-14 22:59] LABS: ALBUMIN 3.5 g/dL (3.5-5.0); ALBUMIN/GLOBULIN RATIO 1.1 (0.8-2.0); ANION GAP 14.6 mmol/L (8-16); CALCIUM 8.3 mg/dL (8.4-10.2); CREATININE, SERUM 1.62 mg/dL (0.72-1.25); POTASSIUM 4.6 mmol/L (3.5-5.1)
[2021-08-15] MEDS ORDERED: ACETAMINOPHEN 325 MG TAB PO PRN (00:15)
[2021-08-15] MEDS ORDERED: LABETALOL HCL 5 MG/ML 20ML VIAL IV PRN (00:15)
[2021-08-15 00:36] VITALS: BP 141/63
[2021-08-15] MEDS: HYDROMORPHONE 1MG/1ML INJ IV PRN ×2 (02:25→08:11)
[2021-08-15] MEDS: SODIUM CHLORIDE 0.9% 1000ML 1,000 ML IV SCH ×2 (02:35→10:30)
[2021-08-15 03:05] LABS: % IRON SATURATION 9 % (15-50); IRON 33 ug/dL (65-175); TOTAL IRON BINDING CAPACITY 349 ug/dL (261-478); TRANSFERRIN 249 mg/dL (174-364)
[2021-08-15 04:00] VITALS: BP 120/68
[2021-08-15 06:30] LABS: BASOPHILS % 0.4 % (0.0-1.0); EOSINOPHILS % 0.2 % (0.0-6.0); HEMATOCRIT 29.1 % (38.2-49.6); HEMOGLOBIN 9.2 g/dL (14.0-18.0); LYMPHOCYTES # (AUTO) 1.9 (1.0-3.2); MEAN CORPUSCULAR HEMOGLOBIN 29.8 pg (28-32); MEAN CORPUSCULAR HGB CONC 31.6 g/dL (31-35); MEAN CORPUSCULAR VOLUME 94.2 fL (81-99); MONOCYTES # (AUTO) 1.2 (0.2-0.8); MONOCYTES % 12.7 % (4.4-11.3); NEUTROPHILS # (AUTO) 6.4 (2.1-6.9); NEUTROPHILS % 66.4 % (38.7-80.0); PLATELET COUNT 175 x10e3/uL (140-360); RED BLOOD COUNT 3.09 x10e6/uL (4.3-5.7)
[2021-08-15 06:56] LABS: ANION GAP 13.3 mmol/L (8-16); CALCIUM 7.9 mg/dL (8.4-10.2); CREATININE, SERUM 1.45 mg/dL (0.72-1.25); POTASSIUM 4.3 mmol/L (3.5-5.1)
[2021-08-15] MEDS ORDERED: INSULIN LISPRO 100 UNIT/1 ML 3ML VIAL SQ SCH (07:30)
[2021-08-15 08:01] VITALS: BP 156/91
[2021-08-15] MEDS: METOCLOPRAMIDE HCL 10 MG/2ML VIAL IV SCH (08:03)
[2021-08-15 09:00] VITALS: BP 156/91
[2021-08-15] MEDS ORDERED: PANTOPRAZOLE SOD 40 MG TABEC PO SCH ×2 (09:00→16:30)
[2021-08-15] MEDS ORDERED: LISINOPRIL 2.5 MG TAB PO SCH (09:00)
[2021-08-15] MEDS ORDERED: ONDANSETRON HCL 4 MG ORAL DISINTEGRATING TAB PO PRN (12:15)
[2021-08-15] MEDS ORDERED: METOCLOPRAMIDE HCL 10 MG TAB PO SCH (12:30)
[2021-08-15] MEDS ORDERED: INSULIN GLARGINE 100 UNITS/ML VIAL SQ SCH (21:00)
[2021-08-15] MEDS ORDERED: GABAPENTIN 400 MG CAP PO SCH (21:00)
== END 2021-08-15 11:15 | disposition home or self-care (01) ==
LOC: FSED 15:25 → ERHOLD 16:47 → INTOOBSV 16:47 → MED/SURG2 19:35
PROVIDERS: ADMIT Internal Medicine; ATTEND Internal Medicine
DX: E11.43 Type 2 diabetes mellitus with diabetic autonomic (poly)neuropathy (principal); K31.84 Gastroparesis; Z79.899 Other long term (current) drug therapy; I10 Essential (primary) hypertension; E11.40 Type 2 diabetes mellitus with diabetic neuropathy, unspecified; R00.0 Tachycardia, unspecified; D64.9 Anemia, unspecified; Z20.822 Contact with and (suspected) exposure to COVID-19; Z79.4 Long term (current) use of insulin
CPT/HCPCS: 36415 ×2; 80048; 80053; 82607; 82728; 82746; 82948; 83036; 83540; 84466; 84484; 85025 ×2; 85045; 99284; C9113 ×2; G0378 ×2; J1170 ×2; J1630; J1815; J2405; J2765 ×2; J7030 ×2; U0002

== ENCOUNTER 2021-11-01 13:03 | Emergency (ER) | payer MEDICARE ==
[~2021-11-01] VITALS: Ht 185.4 cm; Wt 82.1 kg
[2021-11-01] MEDS ORDERED: SODIUM CHLORIDE 0.9% 1000ML 1,000 ML IV STA (13:33)
[2021-11-01] MEDS ORDERED: ONDANSETRON HCL INJ 2MG/ML 2ML 2 MG/ML VIAL IV STA (13:33)
[2021-11-01] MEDS ORDERED: ONDANSETRON HCL INJ 2MG/ML 2ML 2 MG/ML VIAL ONE (13:34)
[2021-11-01] MEDS ORDERED: SODIUM CHLORIDE 0.9% 1000ML 1,000 ML ONE (13:35)
[2021-11-01] MEDS ORDERED: PROMETHAZINE HCL (IM) 25 MG/ML VIAL IM ONE (13:35)
[2021-11-01] MEDS ORDERED: PROMETHAZINE 25MG/ NS 50ML (IV) IV ONE (13:45)
[2021-11-01] MEDS ORDERED: PROMETHAZINE HC25 M1 PO (14:59)
[2021-11-02] MEDS ORDERED: ONDANSETRON ODT4 MG PO (11:36)
== END 2021-11-01 15:27 | disposition home or self-care (01) ==
LOC: FSED 13:30
DX: R11.2 Nausea with vomiting, unspecified (principal); E11.65 Type 2 diabetes mellitus with hyperglycemia; I10 Essential (primary) hypertension; K21.9 Gastro-esophageal reflux disease without esophagitis
CPT/HCPCS: 80053; 81003; 85025; 96374; 99283; J2405; J2550; J7030

== ENCOUNTER 2021-11-01 18:50 | Emergency (ER) | payer MEDICARE ==
[~2021-11-01] VITALS: Ht 185.4 cm; Wt 82.1 kg
[2021-11-01] MEDS ORDERED: PROMETHAZINE 25MG/ NS 50ML (IV) IV STA (19:06)
[2021-11-01] MEDS ORDERED: SODIUM CHLORIDE 0.9% 1000ML 1,000 ML IV STA (19:06)
[2021-11-01] MEDS ORDERED: Morphine 4mg INJECTION 4 MG/ML INJ IV ONE (19:15)
[2021-11-01 19:31] LABS: BASOPHILS # (AUTO) 0.1 (0.0-0.1); BASOPHILS % 0.8 % (0.0-1.0); HEMATOCRIT 34.5 % (38.2-49.6); LYMPHOCYTES # (AUTO) 0.7 (1.0-3.2); LYMPHOCYTES % 10.4 % (18.0-39.1); MEAN CORPUSCULAR HEMOGLOBIN 29.6 pg (28-32); MEAN CORPUSCULAR HGB CONC 31.9 g/dL (31-35); MONOCYTES # (AUTO) 0.3 (0.2-0.8); MONOCYTES % 4.9 % (4.4-11.3); NEUTROPHILS # (AUTO) 5.5 (2.1-6.9); NEUTROPHILS % 83.4 % (38.7-80.0); PLATELET COUNT 180 x10e3/uL (140-360); RED BLOOD COUNT 3.71 x10e6/uL (4.3-5.7); RED CELL DISTRIBUTION WIDTH 13.3 % (11.7-14.4)
[2021-11-01 19:51] LABS: ALBUMIN/GLOBULIN RATIO 0.9 (0.8-2.0); ANION GAP 16.3 mmol/L (8-16); CALCIUM 9.2 mg/dL (8.4-10.2); CREATININE, SERUM 1.4 mg/dL (0.72-1.25); POTASSIUM 4.3 mmol/L (3.5-5.1)
[2021-11-01 20:59] VITALS: BP 150/77
[2021-11-02] MEDS ORDERED: ONDANSETRON ODT4 MG PO (11:36)
== END 2021-11-01 21:06 | disposition home or self-care (01) ==
LOC: ER 18:57
DX: R11.2 Nausea with vomiting, unspecified (principal); E11.65 Type 2 diabetes mellitus with hyperglycemia; I10 Essential (primary) hypertension; K21.9 Gastro-esophageal reflux disease without esophagitis
CPT/HCPCS: 36415; 80053; 83690; 85025; 99283; J2270; J2550; J7030

== ENCOUNTER 2021-11-02 09:38 | Emergency (ER) | payer MEDICARE ==
[~2021-11-02] VITALS: Ht 185.4 cm; Wt 82.1 kg
[2021-11-02] MEDS ORDERED: SODIUM CHLORIDE 0.9% 1000ML 1,000 ML IV ONE (10:00)
[2021-11-02] MEDS ORDERED: HALOPERIDOL LACTATE 5 MG/ML VIAL IV STA (10:02)
[2021-11-02] MEDS ORDERED: FAMOTIDINE 20 MG/2 ML VIAL IV STA (10:05)
[2021-11-02] MEDS ORDERED: ONDANSETRON HCL INJ 2MG/ML 2ML 2 MG/ML VIAL IV STA (10:05)
[2021-11-02 10:32] LABS: BASOPHILS % 0.5 % (0.0-1.0); HEMATOCRIT 33.3 % (38.2-49.6); HEMOGLOBIN 10.5 g/dL (14.0-18.0); LYMPHOCYTES % 11.7 % (18.0-39.1); MEAN CORPUSCULAR HEMOGLOBIN 29.4 pg (28-32); MEAN CORPUSCULAR HGB CONC 31.5 g/dL (31-35); MEAN CORPUSCULAR VOLUME 93.3 fL (81-99); MONOCYTES # (AUTO) 0.6 (0.2-0.8); MONOCYTES % 6.6 % (4.4-11.3); NEUTROPHILS # (AUTO) 6.8 (2.1-6.9); NEUTROPHILS % 80.7 % (38.7-80.0); PLATELET COUNT 166 x10e3/uL (140-360); RED BLOOD COUNT 3.57 x10e6/uL (4.3-5.7); RED CELL DISTRIBUTION WIDTH 13.4 % (11.7-14.4)
[2021-11-02 10:39] LABS: AMPHETAMINES SCREEN,URINE NEGATIVE (NEGATIVE); BENZODIAZEPINES SCREEN,URINE NEGATIVE (NEGATIVE); PHENCYCLIDINE SCREEN,URINE NEGATIVE (NEGATIVE)
[2021-11-02 10:41] LABS: CLARITY,URINE CLEAR (CLEAR); COLOR,URINE YELLOW (YELLOW); LEUKOCYTE ESTERASE ,URINE NEGATIVE (NEGATIVE); NITRITE,URINE NEGATIVE (NEGATIVE)
[2021-11-02 10:42] LABS: KETONES,URINE 1+ (NEGATIVE); PROTEIN,URINE DIPSTICK >=300 (NEGATIVE); URINE UROBILINOGEN 0.2 mg/dL (0.2 - 1)
[2021-11-02 10:51] LABS: ALANINE AMINOTRANSFERASE 27 IU/L (0-55); ALBUMIN 4.1 g/dL (3.5-5.0); ALBUMIN/GLOBULIN RATIO 1.1 (0.8-2.0); ALKALINE PHOSPHATASE 119 IU/L (40-150); BLOOD UREA NITROGEN 25 mg/dL (7-26); BUN/CREATININE RATIO 15 (6-25); CALCIUM 9.1 mg/dL (8.4-10.2); CARBON DIOXIDE 28 mmol/L (22-29); CHLORIDE 102 mmol/L (98-107); CREATININE, SERUM 1.62 mg/dL (0.72-1.25); GLUCOSE 369 mg/dL (74-118); SODIUM 142 mmol/L (136-145)
[2021-11-02 10:52] LABS: LIPASE < 4 U/L (8-78)
[2021-11-02 11:01] LABS: BACTERIA,URINE FEW /HPF; EPITHELIAL CELLS,URINE FEW /LPF; MUCUS,URINE FEW (RARE); WBC,URINE (MAN) 0-5 /HPF (0-5)
[2021-11-02] MEDS ORDERED: ONDANSETRON ODT4 MG PO (11:36)
[2021-11-02 11:46] VITALS: BP 117/103
== END 2021-11-02 11:50 | disposition home or self-care (01) ==
LOC: ER 09:45
DX: E11.43 Type 2 diabetes mellitus with diabetic autonomic (poly)neuropathy (principal); E11.65 Type 2 diabetes mellitus with hyperglycemia; K31.84 Gastroparesis; I10 Essential (primary) hypertension; K21.9 Gastro-esophageal reflux disease without esophagitis
CPT/HCPCS: 36415; 80053; 80307; 81001; 83690; 85025; 93005; 99284; J1630; J2405; J7030

== ENCOUNTER 2021-12-06 14:44 | Emergency (ER) | payer MEDICARE ==
[~2021-12-06] VITALS: Ht 185.4 cm; Wt 83.9 kg
[~2021-12-06 14:44] MED LIST changes: +ONDANSETRON ODT4 MG PO
[2021-12-06] MEDS ORDERED: ONDANSETRON HCL INJ 2MG/ML 2ML 2 MG/ML VIAL IV STA (15:02)
[2021-12-06] MEDS ORDERED: METOCLOPRAMIDE HCL 10 MG/2ML VIAL IV ONE (15:15)
[2021-12-06] MEDS ORDERED: DIPHENHYDRAMINE HCL INJ 50 MG/ML VIAL IV ONE (15:15)
[2021-12-06] MEDS ORDERED: LIDOCAINE VISC 2% SOLN 15 ML UDC PO ONE (15:15)
[2021-12-06] MEDS ORDERED: MAGNESIUM/ALUMINUM/SIMETHICONE 30 ML UDC PO ONE (15:15)
[2021-12-06] MEDS ORDERED: SODIUM CHLORIDE 0.9% 1000ML 1,000 ML IV ONE (15:15)
[2021-12-06] MEDS ORDERED: FAMOTIDINE 20 MG/2 ML VIAL IV STA (15:39)
[2021-12-06] MEDS ORDERED: SODIUM CHLORIDE 0.9% 1000ML 1,000 ML ONE (15:46)
[2021-12-06] MEDS ORDERED: ONDANSETRON HCL INJ 2MG/ML 2ML 2 MG/ML VIAL ONE (15:46)
[2021-12-06] MEDS ORDERED: BELLADONNA ALK/PHENOBARBITAL 5 ML UDC ONE (15:46)
[2021-12-06] MEDS ORDERED: DIPHENHYDRAMINE HCL INJ 50 MG/ML VIAL ONE (15:46)
[2021-12-06] MEDS ORDERED: MAGNESIUM/ALUMINUM/SIMETHICONE 30 ML UDC ONE (15:46)
[2021-12-06] MEDS ORDERED: METOCLOPRAMIDE HCL 10 MG/2ML VIAL ONE (15:46)
[2021-12-06] MEDS ORDERED: LIDOCAINE VISC 2% SOLN 15 ML UDC ONE (15:47)
[2021-12-06] MEDS ORDERED: FAMOTIDINE 20 MG/2 ML VIAL IV ONE (15:47)
[2021-12-06 16:27] VITALS: BP 161/88
[2021-12-06] MEDS ORDERED: BELLADONNA ALK/PHENOBARBITAL 5 ML UDC PO SCH (21:00)
== END 2021-12-06 17:00 | disposition home or self-care (01) ==
LOC: FSED 14:50
DX: R10.13 Epigastric pain (principal); F12.20 Cannabis dependence, uncomplicated; R11.2 Nausea with vomiting, unspecified; E11.65 Type 2 diabetes mellitus with hyperglycemia; I10 Essential (primary) hypertension; K21.9 Gastro-esophageal reflux disease without esophagitis
CPT/HCPCS: 80053; 81003; 85025; 99283; J1200; J2405; J2765; J7030

== ENCOUNTER 2022-04-08 04:48 | Observation (INO) | payer MEDICARE ==
[~2022-04-08] VITALS: Ht 185.4 cm; Wt 86.2 kg
[2022-04-08] MEDS ORDERED: ONDANSETRON HCL INJ 2MG/ML 2ML 2 MG/ML VIAL IV STA (05:26)
[2022-04-08] MEDS ORDERED: SODIUM CHLORIDE 0.9% 1000ML 1,000 ML IV SCH (05:30)
[2022-04-08] MEDS ORDERED: PROMETHAZINE 12.5MG/ NACL 0.9% 12.5 MG/50 ML BAG IV ONE (05:30)
[2022-04-08] MEDS ORDERED: Morphine 4mg INJECTION 4 MG/ML INJ IV ONE (05:30)
[2022-04-08] MEDS ORDERED: ONDANSETRON HCL INJ 2MG/ML 2ML 2 MG/ML VIAL ONE (05:36)
[2022-04-08] MEDS ORDERED: SODIUM CHLORIDE 0.9% 1000ML 1,000 ML ONE (05:36)
[2022-04-08] MEDS ORDERED: PROMETHAZINE HCL (IM) 25 MG/ML VIAL IM ONE (05:36)
[2022-04-08] MEDS ORDERED: Morphine 4mg INJECTION 4 MG/ML INJ ONE (05:42)
[2022-04-08] MEDS ORDERED: INSULIN REGULAR, HUMAN 100 UNIT/1 ML SQ ONE (05:45)
[2022-04-08] MEDS ORDERED: INSULIN REGULAR, HUMAN 100 UNIT/1 ML ONE (07:07)
[2022-04-08] MEDS: SODIUM CHLORIDE 0.9% 1000ML 1,000 ML IV SCH ×2 (09:56→15:45)
[2022-04-08 09:57] VITALS: BP 158/87
[2022-04-08 10:00] VITALS: BP 158/87
[2022-04-08] MEDS ORDERED: ONDANSETRON HCL INJ 2MG/ML 2ML 2 MG/ML VIAL IV PRN (10:45)
[2022-04-08] MEDS: GABAPENTIN 300 MG CAP PO SCH ×4 (10:45→20:54)
[2022-04-08] MEDS: CARVEDILOL 3.125 MG TAB PO SCH ×2 (11:00→17:00)
[2022-04-08] MEDS ORDERED: DEXTROSE 50% SYRINGE 50 ML IV PRN (11:00)
[2022-04-08] MEDS: DICYCLOMINE HCL 20 MG TAB PO SCH ×3 (11:07→15:48)
[2022-04-08] MEDS: METOCLOPRAMIDE HCL 10 MG/2ML VIAL IV SCH ×3 (11:07→22:03)
[2022-04-08] MEDS: TRAMADOL HCL 50 MG TAB PO SCH ×3 (11:07→17:05)
[2022-04-08] MEDS: ONDANSETRON HCL INJ 2MG/ML 2ML 2 MG/ML VIAL IV PRN ×2 (11:17→20:38)
[2022-04-08] MEDS: KETOROLAC TROMETHAMINE 30 MG/ML VIAL IV PRN ×2 (11:17→20:38)
[2022-04-08] MEDS: INSULIN LISPRO 100 UNIT/1 ML 3ML VIAL SQ SCH ×5 (11:30→20:53)
[2022-04-08 13:15] VITALS: BP_SYST 133; BP_SYST 141; BP_DIAS 60; BP_DIAS 77
[2022-04-08 15:29] VITALS: BP 122/69
[2022-04-08 16:28] LABS: ANION GAP 17.4 mmol/L (8-16); CALCIUM 8.7 mg/dL (8.4-10.2); CREATININE, SERUM 1.9 mg/dL (0.72-1.25); POTASSIUM 4.4 mmol/L (3.5-5.1)
[2022-04-08 20:00] VITALS: BP 179/98
[2022-04-08 21:00] VITALS: BP 179/98
[2022-04-08] MEDS ORDERED: INSULIN GLARGINE 100 UNITS/ML VIAL SQ SCH (21:00)
[2022-04-09] VITALS (8 sets, daily range): BP systolic 146–172; BP diastolic 87–97
[2022-04-09] MEDS: TRAMADOL HCL 50 MG TAB PO SCH ×4 (06:00→18:00)
[2022-04-09] MEDS: SODIUM CHLORIDE 0.9% 1000ML 1,000 ML IV SCH ×2 (06:10→18:43)
[2022-04-09 06:22] LABS: BASOPHILS % 0.3 % (0.0-1.0); HEMOGLOBIN 9.4 g/dL (14.0-18.0); LYMPHOCYTES % 8.1 % (18.0-39.1); MEAN CORPUSCULAR HEMOGLOBIN 29.4 pg (28-32); MEAN CORPUSCULAR HGB CONC 30.3 g/dL (31-35); MEAN CORPUSCULAR VOLUME 96.9 fL (81-99); MONOCYTES # (AUTO) 0.7 (0.2-0.8); MONOCYTES % 5.9 % (4.4-11.3); NEUTROPHILS # (AUTO) 10.1 (2.1-6.9); NEUTROPHILS % 85.4 % (38.7-80.0); PLATELET COUNT 190 x10e3/uL (140-360); RED CELL DISTRIBUTION WIDTH 13.2 % (11.7-14.4)
[2022-04-09 06:50] LABS: ALBUMIN 3.5 g/dL (3.5-5.0); ALBUMIN/GLOBULIN RATIO 1.2 (0.8-2.0); ANION GAP 14.6 mmol/L (8-16); CALCIUM 8.2 mg/dL (8.4-10.2); CREATININE, SERUM 1.94 mg/dL (0.72-1.25); MAGNESIUM 1.7 MG/DL (1.3-2.1); PHOSPHORUS 3.3 MG/DL (2.3-4.7); POTASSIUM 4.6 mmol/L (3.5-5.1)
[2022-04-09 07:02] LABS: THYROID STIMULATING HORMONE 0.448 uIU/mL (0.350-4.940)
[2022-04-09] MEDS: DICYCLOMINE HCL 20 MG TAB PO SCH ×3 (07:30→16:01)
[2022-04-09] MEDS: INSULIN LISPRO 100 UNIT/1 ML 3ML VIAL SQ SCH ×7 (07:30→20:39)
[2022-04-09] MEDS: GABAPENTIN 300 MG CAP PO SCH ×3 (09:00→20:46)
[2022-04-09] MEDS: METOCLOPRAMIDE HCL 10 MG/2ML VIAL IV SCH ×4 (09:21→20:46)
[2022-04-09] MEDS: CARVEDILOL 3.125 MG TAB PO SCH ×2 (09:23→16:25)
[2022-04-09] MEDS ORDERED: INSULIN GLARGINE 100 UNITS/ML VIAL SQ ONE (09:30)
[2022-04-09] MEDS ORDERED: INSULIN GLARGINE 100 UNITS/ML VIAL SQ SCH (21:00)
[2022-04-10 01:35] VITALS: BP_SYST 113; BP_SYST 152; BP_DIAS 68; BP_DIAS 92
[2022-04-10 05:46] VITALS: BP_SYST 124; BP_SYST 147; BP_DIAS 45; BP_DIAS 91
[2022-04-10] MEDS: TRAMADOL HCL 50 MG TAB PO SCH ×2 (05:53)
[2022-04-10 08:44] VITALS: BP 147/91
[2022-04-10 08:59] VITALS: BP 162/96
[2022-04-10] MEDS: ONDANSETRON HCL INJ 2MG/ML 2ML 2 MG/ML VIAL IV PRN (09:15)
[2022-04-10] MEDS: INSULIN LISPRO 100 UNIT/1 ML 3ML VIAL SQ SCH ×2 (09:17→09:19)
[2022-04-10] MEDS: GABAPENTIN 300 MG CAP PO SCH (09:19)
[2022-04-10] MEDS: SODIUM CHLORIDE 0.9% 1000ML 1,000 ML IV SCH (09:19)
[2022-04-10] MEDS: DICYCLOMINE HCL 20 MG TAB PO SCH (09:20)
[2022-04-10] MEDS: METOCLOPRAMIDE HCL 10 MG/2ML VIAL IV SCH (09:20)
[2022-04-10] MEDS: CARVEDILOL 3.125 MG TAB PO SCH (09:20)
[2022-04-10] MEDS ORDERED: NIFEDIPINE CR 30 MG TAB PO ONE (10:30)
[2022-04-10] MEDS ORDERED: CYANOCOBALAMIN INJ 1,000 MCG/ML VIAL IM ONE (10:30)
== END 2022-04-10 11:42 | disposition home or self-care (01) ==
LOC: FSED 04:54 → INTOOBSV 05:46 → ERHOLD 05:46 → MED/SURG2 09:16
PROVIDERS: ADMIT Internal Medicine; ATTEND Internal Medicine
DX: E10.40 Type 1 diabetes mellitus with diabetic neuropathy, unspecified (principal); K31.84 Gastroparesis; N17.9 Acute kidney failure, unspecified; E10.65 Type 1 diabetes mellitus with hyperglycemia; E86.0 Dehydration; E87.0 Hyperosmolality and hypernatremia; E10.22 Type 1 diabetes mellitus with diabetic chronic kidney disease; I12.9 Hypertensive chronic kidney disease with stage 1 through stage 4 chronic kidney disease, or unspecified chronic kidney disease; N18.9 Chronic kidney disease, unspecified; I16.0 Hypertensive urgency; D64.9 Anemia, unspecified; Z20.822 Contact with and (suspected) exposure to COVID-19; Z79.4 Long term (current) use of insulin
CPT/HCPCS: 36415 ×3; 80048; 80053 ×2; 81003; 82607; 82746; 82948 ×3; 83036 ×2; 83735; 84100; 84436; 84443 ×2; 84480; 85025 ×2; 99284; C9113 ×3; G0378 ×3; J1815; J1817; J1885 ×2; J2270; J2405 ×3; J2550; J2765 ×3; J3420; J7030 ×3; U0002

== ENCOUNTER 2022-05-12 20:12 | Emergency (ER) | payer MEDICARE ==
[~2022-05-12] VITALS: Ht 185.4 cm; Wt 86.2 kg
[2022-05-12] MEDS ORDERED: FAMOTIDINE 20 MG/2 ML VIAL IV STA (21:18)
[2022-05-12] MEDS: SODIUM CHLORIDE 0.9% 1000ML 1,000 ML IV SCH ×2 (21:27→21:58)
[2022-05-12] MEDS ORDERED: PROMETHAZINE 25MG/ NS 50ML (IV) IV ONE (21:30)
[2022-05-12] MEDS ORDERED: PROMETHAZINE HCL (IM) 25 MG/ML VIAL IM ONE (21:37)
[2022-05-12] MEDS ORDERED: KETOROLAC TROMETHAMINE 30 MG/ML VIAL IV STA ×2 (21:44→21:49)
[2022-05-12] MEDS ORDERED: IOPAMIDOL 370 MG/ML 100 ML INFUS..BTL INJ ONE (21:52)
[2022-05-12] MEDS ORDERED: SODIUM CHLORIDE 0.9% 1000ML 1,000 ML ONE (22:11)
[2022-05-12] MEDS ORDERED: METOCLOPRAMIDE HCL 10 MG/2ML VIAL IV ONE (22:30)
[2022-05-12] MEDS ORDERED: METOCLOPRAMIDE HCL 10 MG/2ML VIAL ONE (22:51)
[2022-05-12 23:47] LABS: ANION GAP 13.8 mmol/L (8-16); CALCIUM 8.5 mg/dL (8.4-10.2); CREATININE, SERUM 1.34 mg/dL (0.72-1.25); POTASSIUM 4.8 mmol/L (3.5-5.1)
[2022-05-12] MEDS ORDERED: ONDANSETRON HCL INJ 2MG/ML 2ML 2 MG/ML VIAL IV STA (23:58)
[2022-05-13] MEDS ORDERED: CARAFATE1 GM PO
[2022-05-13] MEDS ORDERED: PROMETHAZINE HC25 M1 PO (00:01)
[2022-05-13] MEDS ORDERED: ONDANSETRON HCL INJ 2MG/ML 2ML 2 MG/ML VIAL ONE (00:13)
[2022-05-13 00:20] VITALS: BP 166/92
[2022-05-13] MEDS ORDERED: ACETAMINOPHEN 325 MG TAB ONE (00:28)
[2022-05-13] MEDS ORDERED: ACETAMINOPHEN 325 MG TAB PO ONE (00:30)
== END 2022-05-13 00:20 | disposition home or self-care (01) ==
LOC: FSED 20:19
DX: R50.9 Fever, unspecified (principal); K31.84 Gastroparesis; R11.2 Nausea with vomiting, unspecified; K20.90 Esophagitis, unspecified without bleeding; E11.65 Type 2 diabetes mellitus with hyperglycemia; E86.0 Dehydration; R10.10 Upper abdominal pain, unspecified; I10 Essential (primary) hypertension; D64.9 Anemia, unspecified
CPT/HCPCS: 36415; 74177; 80048; 80076; 82553; 84484; 85025; 87400; 96374 ×2; 96376; 99284; J1885; J2405; J2550; J2765; J7030; Q9967

== ENCOUNTER 2022-07-28 17:31 | Inpatient (IN) | payer MEDICARE ==
[~2022-07-28] VITALS: Ht 185.4 cm; Wt 80.8 kg
[2022-07-28] MEDS ORDERED: FAMOTIDINE 20 MG/2 ML VIAL IV STA (18:30)
[2022-07-28] MEDS ORDERED: SODIUM CHLORIDE 0.9% 1000ML 1,000 ML IV ONE (18:30)
[2022-07-28] MEDS ORDERED: PROMETHAZINE 25MG/ NS 50ML (IV) IV ONE (18:30)
[2022-07-28] MEDS ORDERED: SODIUM CHLORIDE 0.9% 1000ML 1,000 ML ONE ×2 (18:34→19:52)
[2022-07-28] MEDS ORDERED: PROMETHAZINE HCL (IM) 25 MG/ML VIAL IM ONE ×2 (18:34→19:53)
[2022-07-28] MEDS ORDERED: FAMOTIDINE 20 MG/2 ML VIAL IV ONE (18:35)
[2022-07-28] MEDS ORDERED: KETOROLAC TROMETHAMINE 30 MG/ML VIAL ONE ×2 (18:38→18:53)
[2022-07-28] MEDS ORDERED: KETOROLAC TROMETHAMINE 30 MG/ML VIAL IV STA (18:38)
[2022-07-28] MEDS ORDERED: SODIUM CHLORIDE 0.9% 1000ML 1,000 ML IV SCH (19:45)
[2022-07-28] MEDS ORDERED: METOCLOPRAMIDE HCL 10 MG/2ML VIAL IV ONE (19:45)
[2022-07-28] MEDS ORDERED: METOCLOPRAMIDE HCL 10 MG/2ML VIAL ONE (19:52)
[2022-07-28] MEDS ORDERED: ONDANSETRON HCL INJ 2MG/ML 2ML 2 MG/ML VIAL IV PRN (21:45)
[2022-07-28] MEDS ORDERED: DEXTROSE 50% SYRINGE 50 ML IV PRN (21:45)
[2022-07-28] MEDS ORDERED: PROMETHAZINE 25MG/ NS 50ML (IV) IV PRN (21:45)
[2022-07-28 23:30] VITALS: BP 152/78
[2022-07-28] MEDS: METOCLOPRAMIDE HCL 10 MG/2ML VIAL IV SCH (23:31)
[2022-07-28] MEDS: SODIUM CHLORIDE 0.9% 1000ML 1,000 ML IV SCH (23:32)
[2022-07-29] VITALS (9 sets, daily range): BP systolic 152–167; BP diastolic 78–94
[2022-07-29] MEDS: KETOROLAC TROMETHAMINE 30 MG/ML VIAL IV PRN ×3 (04:10→22:19)
[2022-07-29] MEDS: METOCLOPRAMIDE HCL 10 MG/2ML VIAL IV SCH ×3 (06:13→17:57)
[2022-07-29 06:44] LABS: BASOPHILS % 0.4 % (0.0-1.0); HEMOGLOBIN 9.4 g/dL (14.0-18.0); LYMPHOCYTES % 10.5 % (18.0-39.1); MEAN CORPUSCULAR HEMOGLOBIN 29.8 pg (28-32); MEAN CORPUSCULAR HGB CONC 32.4 g/dL (31-35); MEAN CORPUSCULAR VOLUME 92.1 fL (81-99); MONOCYTES # (AUTO) 0.6 (0.2-0.8); MONOCYTES % 6.4 % (4.4-11.3); NEUTROPHILS # (AUTO) 7.6 (2.1-6.9); NEUTROPHILS % 82.4 % (38.7-80.0); PLATELET COUNT 187 x10e3/uL (140-360); RED BLOOD COUNT 3.15 x10e6/uL (4.3-5.7); RED CELL DISTRIBUTION WIDTH 13.7 % (11.7-14.4)
[2022-07-29 07:07] LABS: ALANINE AMINOTRANSFERASE 17 IU/L (0-55); ALBUMIN 3.4 g/dL (3.5-5.0); ALKALINE PHOSPHATASE 79 IU/L (40-150); BILIRUBIN,DIRECT 0.2 mg/dL (0.0-0.5); BLOOD UREA NITROGEN 23 mg/dL (7-26); BUN/CREATININE RATIO 15 (6-25); CALCIUM 8.4 mg/dL (8.4-10.2); CARBON DIOXIDE 21 mmol/L (22-29); CHLORIDE 108 mmol/L (98-107); GLUCOSE 150 mg/dL (74-118); SODIUM 139 mmol/L (136-145)
[2022-07-29 07:08] LABS: LIPASE < 4 U/L (8-78)
[2022-07-29] MEDS: SODIUM CHLORIDE 0.9% 1000ML 1,000 ML IV SCH ×3 (08:46→22:23)
[2022-07-29] MEDS: INSULIN LISPRO 100 UNIT/1 ML 3ML VIAL SQ SCH ×4 (08:51→21:00)
[2022-07-29] MEDS ORDERED: BENZONATATE 100 MG CAP PO PRN (09:15)
[2022-07-29] MEDS ORDERED: MELATONIN 5 MG TABLET PO PRN (09:15)
[2022-07-29] MEDS ORDERED: LIDOCAINE 4% PATCH TP PRN (09:15)
[2022-07-29] MEDS ORDERED: POTASSIUM CHLORIDE 20 MEQ TAB CR PO PRN (09:15)
[2022-07-29] MEDS ORDERED: DOCUSATE SODIUM 100 MG CAP PO PRN (09:15)
[2022-07-29] MEDS ORDERED: DIPHENHYDRAMINE HCL 25 MG CAP PO PRN (09:15)
[2022-07-29] MEDS ORDERED: ONDANSETRON HCL INJ 2MG/ML 2ML 2 MG/ML VIAL IV PRN (09:15)
[2022-07-29] MEDS ORDERED: ALBUTEROL/IPRATROPIUM 3 ML NEB NEB PRN (09:15)
[2022-07-29] MEDS ORDERED: DEXTROSE 50% SYRINGE 50 ML IV PRN (09:15)
[2022-07-29] MEDS ORDERED: HYDRALAZINE HCL 20 MG/ML VIAL IV PRN (09:15)
[2022-07-29] MEDS ORDERED: SIMETHICONE 80 MG CHEW PO PRN (09:15)
[2022-07-29] MEDS ORDERED: ACETAMINOPHEN 325 MG TAB PO PRN (09:15)
[2022-07-29] MEDS ORDERED: TRAMADOL HCL 50 MG TAB PO PRN (10:00)
[2022-07-29] MEDS ORDERED: ENOXAPARIN SOD INJ 40 MG/0.4 ML SYR SC SCH (17:00)
[2022-07-29 22:37] LABS: % IRON SATURATION 18 % (15-50); IRON 55 ug/dL (65-175); TOTAL IRON BINDING CAPACITY 312 ug/dL (261-478); TRANSFERRIN 223 mg/dL (174-364)
[2022-07-30] MEDS: METOCLOPRAMIDE HCL 10 MG/2ML VIAL IV SCH ×2 (00:13→05:20)
[2022-07-30 04:00] VITALS: BP 161/77
[2022-07-30 05:17] LABS: BASOPHILS # (AUTO) 0.1 (0.0-0.1); BASOPHILS % 0.8 % (0.0-1.0); EOSINOPHILS # (AUTO) 0.2 (0.0-0.4); EOSINOPHILS % 2.1 % (0.0-6.0); HEMATOCRIT 28.9 % (38.2-49.6); HEMOGLOBIN 9.5 g/dL (14.0-18.0); LYMPHOCYTES # (AUTO) 1.8 (1.0-3.2); LYMPHOCYTES % 20.7 % (18.0-39.1); MEAN CORPUSCULAR HGB CONC 32.9 g/dL (31-35); MEAN CORPUSCULAR VOLUME 91.2 fL (81-99); MONOCYTES % 11.7 % (4.4-11.3); NEUTROPHILS # (AUTO) 5.5 (2.1-6.9); NEUTROPHILS % 64.5 % (38.7-80.0); PLATELET COUNT 192 x10e3/uL (140-360); RED BLOOD COUNT 3.17 x10e6/uL (4.3-5.7); RED CELL DISTRIBUTION WIDTH 13.2 % (11.7-14.4)
[2022-07-30 05:38] LABS: ANION GAP 12.1 mmol/L (8-16); CALCIUM 8.6 mg/dL (8.4-10.2); CHOL/HDL RATIO 5.1 (3.9-4.7); CREATININE, SERUM 1.25 mg/dL (0.72-1.25); MAGNESIUM 1.4 MG/DL (1.3-2.1); POTASSIUM 4.1 mmol/L (3.5-5.1)
[2022-07-30] MEDS: KETOROLAC TROMETHAMINE 30 MG/ML VIAL IV PRN (05:42)
[2022-07-30] MEDS: SODIUM CHLORIDE 0.9% 1000ML 1,000 ML IV SCH (05:45)
[2022-07-30 05:57] LABS: THYROID STIMULATING HORMONE 0.679 uIU/mL (0.350-4.940)
[2022-07-30] MEDS ORDERED: PANTOPRAZOLE SOD 40 MG TABEC PO SCH (07:30)
[2022-07-30] MEDS: INSULIN LISPRO 100 UNIT/1 ML 3ML VIAL SQ SCH (07:30)
[2022-07-30 08:32] VITALS: BP 161/77
[2022-07-30 09:14] VITALS: BP 162/81
== END 2022-07-30 10:30 | disposition left against medical advice (07) | DRG 74 ==
LOC: FSED 17:41 → ERHOLD 21:40 → MED/SURG2 23:00 → OBSVTOIN 07-30 09:15
PROVIDERS: ADMIT Internal Medicine; ATTEND Internal Medicine
DX: E11.43 Type 2 diabetes mellitus with diabetic autonomic (poly)neuropathy (principal); N17.9 Acute kidney failure, unspecified; K31.84 Gastroparesis; I10 Essential (primary) hypertension; K21.9 Gastro-esophageal reflux disease without esophagitis; D64.9 Anemia, unspecified; F12.10 Cannabis abuse, uncomplicated; E86.0 Dehydration; E87.5 Hyperkalemia; Z53.29 Procedure and treatment not carried out because of patient's decision for other reasons; Z79.4 Long term (current) use of insulin; Z90.49 Acquired absence of other specified parts of digestive tract
CPT/HCPCS: 0223U; 36415; 80048; 80061; 80076; 81003; 82553; 82607; 82746; 82948; 83036; 83540; 83690; 83735; 84443; 84466; 84484; 85025; 85045; 96374; 96375; 99284; G0378; J1650; J1885; J2550; J2765; J7030

== ENCOUNTER 2022-08-25 06:13 | Emergency (ER) | payer MEDICARE ==
[~2022-08-25] VITALS: Ht 185.4 cm; Wt 77.1 kg
[2022-08-25] MEDS ORDERED: ENALAPRILAT IV INJ 1.25 MG/ML VIAL IV STA (06:27)
[2022-08-25] MEDS ORDERED: LACTATED RINGER'S 1,000 ML INJ SCH (06:30)
[2022-08-25] MEDS ORDERED: METOCLOPRAMIDE HCL 10 MG/2ML VIAL IV ONE (06:30)
[2022-08-25] MEDS ORDERED: ENALAPRILAT IV INJ 1.25 MG/ML VIAL ONE (06:42)
[2022-08-25] MEDS ORDERED: LACTATED RINGER'S 1,000 ML ONE (06:43)
[2022-08-25] MEDS ORDERED: METOCLOPRAMIDE HCL 10 MG/2ML VIAL ONE (06:43)
[2022-08-25 08:37] VITALS: O2SAT 96
[2022-08-25] MEDS ORDERED: FAMOTIDINE 20 MG/2 ML VIAL IV STA (09:09)
[2022-08-25] MEDS ORDERED: PROMETHAZINE HCL (IM) 25 MG/ML VIAL IM ONE (09:11)
[2022-08-25] MEDS ORDERED: SODIUM CHLORIDE 0.9% 500ML 500 ML ONE (09:12)
[2022-08-25] MEDS ORDERED: SODIUM CHLORIDE 0.9% 500ML 500 ML IV ONE (09:15)
[2022-08-25] MEDS ORDERED: PROMETHAZINE 25MG/ NS 50ML (IV) IV ONE (09:15)
[2022-08-25] MEDS ORDERED: PROMETHAZINE HC25 M1 PO (10:55)
== END 2022-08-25 11:08 | disposition home or self-care (01) ==
LOC: FSED 06:22
DX: R11.2 Nausea with vomiting, unspecified (principal); E11.43 Type 2 diabetes mellitus with diabetic autonomic (poly)neuropathy; E11.65 Type 2 diabetes mellitus with hyperglycemia; K31.84 Gastroparesis; E11.40 Type 2 diabetes mellitus with diabetic neuropathy, unspecified; R10.84 Generalized abdominal pain; I10 Essential (primary) hypertension; D64.9 Anemia, unspecified
CPT/HCPCS: 80053; 85025; 93005; 99284; J2550; J2765; J7040; J7121